=== PATIENT | male | born 1960 | race Caucasian/White ===

== ENCOUNTER 2019-04-22 18:57 | Emergency (ER) | payer OTHER, SELFPAY ==
[2019-04-22 18:58] VITALS: BP 171/90; PULSE 69; RESP 15; TEMP 36.8; O2SAT 97; BMI 34.9
--- NOTE | 2019-04-22 19:24 | EKG12_ITS ---
Test Reason : POSS STROKE Blood Pressure : / mmHG Vent. Rate : 067 BPM Atrial Rate : 067 BPM P-R Int : 146 ms QRS Dur : 124 ms QT Int : 466 ms P-R-T Axes : 041 048 027 degrees QTc Int : 492 ms Normal sinus rhythm Right bundle branch block Abnormal ECG Confirmed by GRACE CACERES, FARHANA ([id number]), non linear editor BROOKE GRIDER ([id number]) on 05/03/2019 9:18:24 A M Referred By: GIULIA Confirmed By:TATE EDWARDS MD
--- NOTE | 2019-04-22 19:24 | CT_ITS ---
STUDY: CT BRAIN WITHOUT CONTRAST REASON FOR EXAM: Male, 59 years old. Diplopia, difficulty ambulating RADIATION DOSAGE (If Supplied By Facility): CTDIvol = ( 44.99 ) mGy, DLP = ( 829.85 ) mGycm TECHNIQUE: Transaxial CT imaging of the brain was performed without administration of intravenous contrast material. Individualized dose optimization techniques were used for this CT. COMPARISON: No relevant priors. FINDINGS: There are minor ill-defined scattered white matter hypodensities, likely involutional/ischemic. There is no acute intracranial hemorrhage, territorial infarction, hydrocephalus mass effect or midline shift. The skull is intact. CT/Brain/Head without Contrast IMPRESSION: 1. No acute abnormality. 2. Mild white matter involutional/atherosclerotic changes. 3. In the presence of acute neurologic deficit MRI with diffusion is recommended to detect acute ischemia not demonstrable on early CT head. Electronically Signed: Tyron Turner, at 20:28 EDT Tel , Service support ,
--- NOTE | 2019-04-22 19:40 | ED.VIS.STROK ---
History of Present Illness Chief Complaint: Eye Problem Informant: Patient Onset: Today, Hours Context: Sudden Onset Timing: Intermittent Quality and Location: - - Double vision, nausea and problems with balance Onset: 1700 and resolved at approximately 1730 Current Severity: Gone Maximum Severity: Moderate Worsened by: Nothing Relieved by: Nothing Associated Symptoms: Headache, Nausea. Negative for: Vomiting, Chest Pain Narrative: Patient is a 59-year-old male with no sniffing past medical history presents because of double vision, problems with balance and nausea with headache that started at 1700 and resolved by 1730. He is on no anticoagulant or antiplatelet medication but he has no history of hypertension or diabetes. He denies prior symptoms. He denies symptoms presently. He denied cardiac, respiratory or any other GI symptoms other than nausea. He denies urologic symptoms. Prior similar symptoms: No Recent Illness/Hospitalization: No - Past Medical History (1) No significant past medical history Status: Acute Past Medical History - Allergies and Home Meds Allergies/Adverse Reactions: Allergies Penicillins [PCN] Allergy (Verified 06/08/17 09:29) Unknown - WAS A BABY Primary Care Physician: Jaime Lanza DO [Primary Care Provider] - Prior records reviewed: Yes Past Medical History: None Surgical History: no surgical history Lives: Spouse/ Significant Other Smoking Status: Current every day smoker Alcohol: Rare Drugs: None - Family History Paternal Family History: Reports: Cancer Maternal Family History: Reports: No pertinent history Review of Systems General: Denies: Chills, Fever, Malaise, Sweats Eyes: Reports: Diplopia. Denies: Visual changes - bilaterally, Blurred Vision - bilaterally ENT: Denies: Bilateral ear pain, Rhinorrhea, Sore throat Cardiovascular: Denies: Chest pain, Palpitations Respiratory: Denies: Dyspnea, Cough, Dyspnea on exertion Gastrointestinal: Reports: Nausea. Denies: Abdominal pain, Vomiting, Diarrhea, Melena, Hematochezia Genitourinary: Denies: Dysuria, Hematuria, Frequency Musculoskeletal: Denies: Myalgias, Arthralgias, Neck pain, Back pain, Swelling, Extremity Pain, -, - Skin: Denies: Rash, Wounds Neurological: Reports: Headache. Denies: Weakness, Parasthesia, Numbness, -, - Hematologic: Denies: Easy bruising, Easy bleeding Allergy: Denies: Swelling of the mouth, Swelling of the tongue STROKE Vital Signs/Narrative: Vital Signs Temp Pulse Resp BP Pulse Ox 04/22/19 18:58 98.2 F 69 15 171/90 H 97 Inital Vital Signs reviewed: Yes - NIHSS Initial 1a Level of Consciousness: 0 1b LOC Questions (Score 2 if aphasic/stupor): 0 1c LOC Commands (Only score 1st attempt): 0 2 Best Gaze (If aphasic, use reflexive mvmts.): 0 3 Visual: 0 4 Facial Palsy: 0 5 Motor Arm Right (UN = amputation/fusion): 0 5 Motor Arm Left: 0 6 Motor Leg Right: 0 6 Motor Leg Left: 0 7 Limb ataxia (Only + if out of proportion): 0 8 Sensory (Aphasia/stupor=0 or 1, coma=2): 0 9 Best Language: 0 10 Dysarthria (mute, coma=2, intubated=UN): 0 11 Extinction and Inattention (only scored if +): 0 Total Score: 0 General: Well nourished, Well developed Head: Normocephalic, Atraumatic Eyes: Perrl, EOMI ENT: Moist mucous membranes, No rhinorrhea Neck: Supple, Nontender Cardiovascular: Regular rate, Regular rhythm, No murmurs Respiratory: No distress, CTA bilaterally, Chest nontender Abdomen: Soft, Nontender, Nondistended, Normal bowel sounds Back: Nontender, Normal Inspection Extremities: Nontender, No edema Skin: Normal color, No rash Neurological: Alert, Oriented x3, Cranial nerves II-XII grossly intact, Normal Strength, Normal Sensation, Normal DTR - No clonus. He withdraws when assessing for Babinski sign., - - Finger-nose to finger was normal on the left. He was slightly off on the right. Romberg test with eyes open and closed revealed slight missing on the right only with eyes open.. Negative for: Normal Gait - His gait he was able to walk on heels and toes. Tandem gait was abnormal and he had trouble staying upright. Psychological: Normal affect, Normal Mood Diagnostic/Tx/Re-eval Impressions Brain CT 04/22/19 19:24 IMPRESSION: 1. No acute abnormality. 2. Mild white matter involutional/atherosclerotic changes. 3. In the presence of acute neurologic deficit MRI with diffusion is recommended to detect acute ischemia not demonstrable on early CT head. Electronically Signed: Tyron Turner, at 20:28 EDT Tel , Service support , 04/22/19 19:24 Brain/Head without Contrast [CT] Stat Laboratory Results 04/22/19 04/22/19 04/22/19 19:52 19:52 19:52 WBC 6.7 RBC 4.96 Hgb 14.7 Hct 43.6 MCV 87.9 MCH 29.6 MCHC 33.7 RDW Std Deviation 42.5 RDW Coeff of Carlos 13.2 Plt Count 330 MPV 9.2 Immature Gran % (Auto) 0.700 Neut % (Auto) 51.4 Lymph % (Auto) 34.0 [place] % (Auto) 10.2 H Eos % (Auto) 2.7 Baso % (Auto) 1.0 Absolute Neuts (auto) 3.5 Absolute Lymphs (auto) 2.29 Nucleated RBC % 0 PT 12.8 INR 1.0 APTT 27.8 Sodium 134 L Potassium 4.3 Chloride 100 Carbon Dioxide 29.0 Anion Gap 5 BUN 6 L Creatinine 1.01 Estim Creat Clear Calc 77.78 Est GFR (MDRD) Af Amer 97 Est GFR (MDRD) Non-Af 80 BUN/Creatinine Ratio 5.9 L Glucose 91 Calcium 9.1 Troponin I < 0.015 CT of the head reveals no acute intracranial bleed. Blood work is unremarkable. The hospitalist has been paged for continued observation and additional testing. - EKG Initial EKG Interpretation: Sinus Rhythm - Sinus rhythm with a ventricular rate of 67. WI interval is 146 ms. QRS durations 124 ms and consistent with right bundle branch block. QT 466 ms. - Medical Decision Making Stroke Team Activated: No Reviewed Inclusion/Exclusion criteria: No IV Alteplase (t-PA) Administered: No No contraindications for IV Alteplase (t-PA) administration.: No Alteplase (t-PA) risks, benefits, alternative discussed: No Not given: Patient refusal: No - NIH 0 Patient was informed with trouble with vision i.e. diplopia nausea headache and problems with ambulating and slight subtle abnormality noted with finger-nose to finger on the right concern this may represent a problem with the circulation in the back part of his brain requiring stroke work-up. Patient initially reluctant to stay. He was informed that he may leave AGAINST MEDICAL ADVICE but he would need to understand the risks he is taking. His informed him that he would be staying. Patient agrees to stay after I answered his questions why he needed further testing. ED Disposition - Plan for ED Patient: Disposition: Acute Care Hospital [facility] Diagnosis: Diplopia, DIFFICULTY AMBULATING Referrals: Jaime Lanza DO [Primary Care Provider] -
[2019-04-22 19:52] VITALS: BP 171/85; PULSE 68; RESP 17; O2SAT 97
[2019-04-22 20:30] VITALS: BP 176/96; PULSE 69; RESP 17; O2SAT 96
[2019-04-22 20:32] LABS: Absolute Lymphocyte Count 2.29 X10^3/uL (0.83-4.51); Absolute Neutrophil Count 3.5 X10^3/uL (2.0-7.7); Basophil# 0.07 X10^3/uL; Eosinophil# 0.18 X10^3/uL; Eosinophils% 2.7 % (0-5); Hematocrit 43.6 % (40-54); Hemoglobin 14.7 g/dL (13.0-16.5); Lymphocyte # 2.29 X10^3/ul (4.0); Mean Corp Hgb Conc 33.7 g/dL (32-36); Mean Corpuscular Hgb 29.6 pg (27.0-32.0); Mean Corpuscular Volume 87.9 fL (80-94); Mean Platelet Vol. 9.2 fl (6.2-12.0); Monocyte# 0.69 X10^3/uL; Monocyte% 10.2 % (0-10); NRBC Flagged by Analyzer 0 % (0-5); Neutrophil # 3.46 X10^3/uL (2.7-7.7); Neutrophil % 51.4 % (47-70); Platelet Count 330 K/mm3 (150-450); RBC Distribution Width CV 13.2 % (11.6-14.6); RBC Distribution Width SD 42.5 fl (35.1-43.9); Red Blood Count 4.96 M/mm3 (4.6-6.2); White Blood Count 6.7 K/mm3 (4.4-11.0)
[2019-04-22 20:34] LABS: Partial Thromboplast Time 27.8 Seconds (24.1-36.2); Prothrombin Time (Protime)PT. 12.8 SECONDS (11.7-14.9)
[2019-04-22 20:43] LABS: Anion Gap 5 (5-15); BUN 6 mg/dL (7-18); BUN/Creat Ratio 5.9 RATIO (10-20); Calcium,Total 9.1 mg/dL (8.5-10.1); Chloride 100 mmol/L (98-107); Creatinine, Serum 1.01 mg/dL (0.70-1.30); EST Glomerular Filtration Rate 80 mL/min (>60); Est Glom Filt Rate - Afr Amer 97 mL/min (>60); Estimated Creatinine Clearance 77.78 ml/min; Glucose 91 mg/dL (74-106); Potassium 4.3 mmol/L (3.5-5.1); Sodium Level 134 mmol/L (136-145)
--- NOTE | 2019-04-22 21:11 | PCM.HP.STD ---
History of Present Illness The patient is a 59 year old M [] Past Medical History Allergies Penicillins [PCN] Allergy (Verified 06/08/17 09:29) Unknown - WAS A BABY Home Medications: Ambulatory Orders Medication Instructions Recorded Omeprazole [Prilosec] 10 mg PO DAILY 06/08/17 Acetaminophen [Tylenol] 1,000 mg PO Q8 #90 tab 06/24/17 Surgical History: no surgical history Lives: Spouse/ Significant Other Smoking Status: Current every day smoker Alcohol: Rare Drugs: None - *Family History Paternal History Items: Cancer Maternal History Items: No pertinent history Patient Problems: Active and Suspected Problems No significant past medical history (Acute) Diplopia (Acute) - Physical Exam Vital Signs Temp Pulse Resp BP Pulse Ox 98.2 F 69 17 176/96 H 96 04/22/19 18:58 04/22/19 20:30 04/22/19 20:30 04/22/19 20:30 04/22/19 20:30 Oxygen Flow Rate (L/min) 2 Oxygen Delivery Method Room Air Weight: 107.501 kg Body Mass Index (BMI) 34.9 Finger Stick Blood Glucose 134 Laboratory Tests Past 24 Hrs 04/22/19 04/22/19 04/22/19 19:52 19:52 19:52 WBC 6.7 RBC 4.96 Hgb 14.7 Hct 43.6 MCV 87.9 MCH 29.6 MCHC 33.7 RDW Std Deviation 42.5 RDW Coeff of Carlos 13.2 Plt Count 330 MPV 9.2 Immature Gran % (Auto) 0.700 Neut % (Auto) 51.4 Lymph % (Auto) 34.0 [place] % (Auto) 10.2 H Eos % (Auto) 2.7 Baso % (Auto) 1.0 Absolute Neuts (auto) 3.5 Absolute Lymphs (auto) 2.29 Nucleated RBC % 0 PT 12.8 INR 1.0 APTT 27.8 Sodium 134 L Potassium 4.3 Chloride 100 Carbon Dioxide 29.0 Anion Gap 5 BUN 6 L Creatinine 1.01 Estim Creat Clear Calc 77.78 Est GFR (MDRD) Af Amer 97 Est GFR (MDRD) Non-Af 80 BUN/Creatinine Ratio 5.9 L Glucose 91 Calcium 9.1 Troponin I < 0.015 Assessment/Plan All Active Problems No significant past medical history (Acute) Diplopia (Acute)
--- NOTE | 2019-04-22 23:03 | PCM.CONS.GEN ---
Problem List (1) Alcohol abuse Status: Chronic (2) Tobacco abuse Status: Chronic (3) Stroke-like symptoms Status: Acute Reason for Consult Date of Consultation: 04/23/19 Reason for Consultation: stroke-like symptoms History of Present Illness: The patient is a 59 year old M with a significant history of alcoholism and tobacco abuse who presented to emergency department with 1 day history of blurry vision. Patient and his reports at least 5 times of episodic blurry vision. The last episode occurred while sitting at the triage of our emergency department. Also her reports that patient was found staring in space and upon further inquiry patient reported to her that he was having blurry vision. Associated with his symptoms is problem with balance, nausea and headache. Emergency department doctor reported that patient had tandem gait abnormality and some dysmetria on finger to noise test. Past Medical History Past Medical History (Chronic Problems): Chronic Problems Alcohol abuse (Chronic) Tobacco abuse (Chronic) Allergies Penicillins [PCN] Allergy (Verified 06/08/17 09:29) Unknown - WAS A BABY Home Medications: Ambulatory Orders Medication Instructions Recorded Omeprazole [Prilosec] 10 mg PO DAILY 06/08/17 Acetaminophen [Tylenol] 1,000 mg PO Q8 #90 tab 06/24/17 Surgical History: total hip arthroplasty Lives: Spouse/ Significant Other Smoking Status: Current every day smoker Tobacco Use: Cigarettes Alcohol: Heavy Drugs: None - *Family History Paternal History Items: Cancer Maternal History Items: - - Patient denies knowledge of any maternal medical history. Review of Systems Constitutional: Denies: Chills, Fever, Weight Change HEENT: Reports: Head Aches. Denies: Sinus Congestion, Sinus Drainage Cardiovascular: Denies: Chest Pain, Palpitations Respiratory: Denies: Cough, Shortness of breath at rest, Sputum production Gastrointestinal: Reports: Nausea. Denies: Abdominal Pain, Vomiting Genitourinary: Denies: Dysuria Musculoskeletal: Denies: Joint Pain, Joint Tenderness Skin: Denies: Rash, Wounds Neurological: Reports: Balance problems, Blurred vision. Denies: Focal weakness, Numbness, Tingling Psychiatric: Denies: Anxiety, Depression, Homicidal Ideations, Suicidal Ideations Hematologic/ Lymphatic: Denies: Easy Bruising, Easy Bleeding - Physical Exam General: Alert, Oriented x3, Cooperative HEENT: Atraumatic, PERRLA, EOMI, Normocephalic Neck: Supple, No JVD, Negative Carotid Bruits Lungs: Clear to auscultation, Normal air movement Cardiovascular: Regular rate, No murmurs Abdomen: Bowel Sounds Present, Soft, Non Tender Extremities: No edema, Capillary Refill Less than 3 Seconds Skin: No rashes, No breakdown Musculoskeletal: No Tenderness to Palpation of Joints or Extremities Neurological: Motor Exam 5/5 strength throughout, - - Abnormal visual field test. Tandem gait abnormal Psych/Mental Status: Normal Affect, Appropriate Vital Signs Temp Pulse Resp BP Pulse Ox 98.2 F 69 17 176/96 H 96 04/22/19 18:58 04/22/19 20:30 04/22/19 20:30 04/22/19 20:30 04/22/19 20:30 Oxygen Flow Rate (L/min) 2 Oxygen Delivery Method Room Air Weight: 107.501 kg Body Mass Index (BMI) 34.9 Finger Stick Blood Glucose 134 Laboratory Tests Past 24 Hrs 04/22/19 04/22/19 04/22/19 19:52 19:52 19:52 WBC 6.7 RBC 4.96 Hgb 14.7 Hct 43.6 MCV 87.9 MCH 29.6 MCHC 33.7 RDW Std Deviation 42.5 RDW Coeff of Carlos 13.2 Plt Count 330 MPV 9.2 Immature Gran % (Auto) 0.700 Neut % (Auto) 51.4 Lymph % (Auto) 34.0 [place] % (Auto) 10.2 H Eos % (Auto) 2.7 Baso % (Auto) 1.0 Absolute Neuts (auto) 3.5 Absolute Lymphs (auto) 2.29 Nucleated RBC % 0 PT 12.8 INR 1.0 APTT 27.8 Sodium 134 L Potassium 4.3 Chloride 100 Carbon Dioxide 29.0 Anion Gap 5 BUN 6 L Creatinine 1.01 Estim Creat Clear Calc 77.78 Est GFR (MDRD) Af Amer 97 Est GFR (MDRD) Non-Af 80 BUN/Creatinine Ratio 5.9 L Glucose 91 Calcium 9.1 Troponin I < 0.015 Assessment/Plan All Active Problems Stroke-like symptoms (Acute) The patient is a 59 year old M with a significant history of alcoholism and tobacco abuse who presented to emergency department with multiple episodes of blurry vision; imbalance, nausea; headache ; and abnormal tandem gait and hemianopia consistent with probable posterior circulation stroke. Probable posterior circulation stroke CT of the head did not show acute abnormality Patient will need an MRI and neurologist evaluation and recommendation: I discussed with emergency department, patient and family that for optimum care patient should be transferred to a Hospital where he can have access to these. Alcoholism Patient reported he drinks about 12 beers per day Counseled Tobacco abuse: Patient smokes cigarettes Counselled. Code Visit Office Visits / Consults: [id number] OP Consult L2
== END 2019-04-22 23:31 | disposition home or self-care (01) ==
PROVIDERS: Emergency Provider Emergency Medicine; Family Provider Preventive Medicine Occupational Medicine; PCP Preventive Medicine Occupational Medicine
DX: H53.2 Diplopia (principal); R26.2 Difficulty in walking, not elsewhere classified; F17.210 Nicotine dependence, cigarettes, uncomplicated; F10.20 Alcohol dependence, uncomplicated; Y90.9 Presence of alcohol in blood, level not specified; Z53.29 Procedure and treatment not carried out because of patient's decision for other reasons
CPT/HCPCS: 70450; 80048; 84484; 85025; 85610; 85730; 93005; 99284; A4216

== ENCOUNTER → 2022-01-31 | Outpatient (CLI) | payer OTHER, SELFPAY | END | disposition home or self-care (01) | LOC: LAB 09:24 | PROVIDERS: PCP Preventive Medicine Occupational Medicine; Referring Provider Preventive Medicine Occupational Medicine; Visit Provider Preventive Medicine Occupational Medicine | DX: U07.1 COVID-19 (principal) | CPT/HCPCS: 36415; 86769 ==

== ENCOUNTER → 2022-02-07 | Outpatient (CLI) | payer OTHER, SELFPAY ==
[2022-02-07 11:32] LABS: AST(SGOT) 17 U/L (15-37); Alanine Aminotransfer ALT/SGPT 30 U/L (16-61); Albumin, Serum 3.5 g/dL (3.2-5.0); Alkaline Phosphatase 79 U/L (45-117); Anion Gap 5 (5-15); BUN 6 mg/dL (7-18); BUN/Creat Ratio 6.2 RATIO (10-20); Calcium,Total 8.7 mg/dL (8.5-10.1); Chloride 102 mmol/L (98-107); Cholesterol 86 mg/dL (200); Creatinine, Serum 0.96 mg/dL (0.70-1.30); EST Glomerular Filtration Rate 84 mL/min (>60); Est Glom Filt Rate - Afr Amer 102 mL/min (>60); Globulin 3.5 g/dL (2.2-4.2); Glucose 98 mg/dL (74-106); High Density Lipoprotein 41 mg/dL; PSA,Total - Annual Screen 0.99 ng/mL (0.00-4.00); Potassium 4.3 mmol/L (3.5-5.1); Sodium Level 134 mmol/L (136-145); Triglycerides 51 mg/dL; Very Low Density Lipoprotein 10 mg/dL (5-40)
== END | disposition home or self-care (01) ==
LOC: LAB 10:04
PROVIDERS: PCP Preventive Medicine Occupational Medicine; Visit Provider Preventive Medicine Occupational Medicine
DX: I10 Essential (primary) hypertension (principal); E78.5 Hyperlipidemia, unspecified; Z12.5 Encounter for screening for malignant neoplasm of prostate
CPT/HCPCS: 36415; 80053; 80061; 84153; G0103

== ENCOUNTER 2022-03-22 11:12 | Emergency (ER) | payer OTHER, SELFPAY ==
[2022-03-22 11:13] VITALS: BP 160/77; PULSE 76; RESP 14; TEMP 36.3; O2SAT 99; BMI 36.0
--- NOTE | 2022-03-22 11:23 | RAD_ITS ---
STUDY: X-RAY - RIGHT WRIST REASON FOR EXAM: Male, 61 years old. Trauma TECHNIQUE: 3 view(s) of the wrist were obtained. COMPARISON: None. FINDINGS: Normal visualized distal radius and ulna. Normal radiocarpal articulation. Normal distal radioulnar articulation. Normal carpal bones. Widening of the scaphoid trapezium joint. Normal carpometacarpal articulation of the thumb. Normal second through fifth carpometacarpal articulations. Deformity of the base of the fifth metacarpal could be due to old injury. Small calcification on the dorsal aspect of the wrist concerning for fracture of the triquetrum. The soft tissue structures are unremarkable. RAD/Wrist min 3 Views IMPRESSION: Small calcification of the dorsal aspect of the wrist concerning for fracture of the triquetrum. Widening of the scaphoid trapezium joint and deformity of the base of the fifth metacarpal could be due to previous injury. Electronically Signed: Mayco Gama MD at 12:25 EDT ,
--- NOTE | 2022-03-22 11:23 | RAD_ITS ---
STUDY: X-RAY - RIGHT HAND REASON FOR EXAM: Male, 61 years old. Injury TECHNIQUE: 3 view(s) of the hand. COMPARISON: None. FINDINGS: Normal radiocarpal articulation. Normal distal radioulnar joint. Normal visualized carpal bones. Widening of the scaphoid trapezium articulation. Normal carpometacarpal articulation of the thumb. Normal second through fifth carpometacarpal joints. Deformity of the base of the fifth metacarpal could be due to old injury. Normal metacarpophalangeal joint of the thumb. Normal interphalangeal joint of the thumb. Normal proximal and distal phalanges of the thumb. Normal metacarpophalangeal joints of the second through fifth fingers. Normal proximal and distal interphalangeal joints of the second through fifth fingers. Normal phalanges of the second through fifth fingers. The soft tissue structures are unremarkable. RAD/Hand Min 3 Views IMPRESSION: 1. Widening of the scaphoid trapezium joint and deformity of the base of the fifth metacarpal could be due to old injury. 2. Otherwise no demonstrated acute fracture. Electronically Signed: Mayco Gama MD at 12:22 EDT ,
--- NOTE | 2022-03-22 11:23 | EX.ED.UPPERE ---
HPI History of Present Illness Chief Complaint: Upper Extremity Injury Informant: patient Narrative Narrative: 61-year-old male states that yesterday he sustained a fall in which his right hand was caught underneath of him. He notes that he had some swelling over the third MCP joint. He had a previous abrasion over the wrist. He iced it and took some Aleve and it was doing okay until around bedtime when it began to hurt more. He took some additional Aleve states has been unable to sleep due to pain. He notes that now his whole hand is swollen. He notes some pain at the wrist joint as well. [facility] Medical History (Updated 03/22/22 @ 12:[address] Bowen Lemus DO) GERD (gastroesophageal reflux disease) Hyperlipemia Hypertension Home Medications atorvastatin 80 mg tablet 80 mg PO DAILY 03/22/22 [History Last Taken 03/22/22] clopidogrel 75 mg tablet 75 mg PO DAILY 03/22/22 [History Last Taken 03/22/22] hydrocodone-acetaminophen 5-325mg 5mg-325mg 1 tab PO Q6H PRN PRN Pain 3 days #12 TABLETS 03/22/22 [Rx Last Taken Unknown] lisinopril 2.5 mg tablet 2.5 mg PO DAILY 03/22/22 [History Last Taken 03/22/22] Allergy/AdvReac Type Severity Reaction Status Date / Time Penicillins [PCN] Allergy Unknown - Verified 03/22/22 11:13 WAS A BABY Social History (Updated 03/22/22 @ 11:[address] Bowen Lemus DO) current gender identity: male Smoking Status: Current every day smoker tobacco type: cigarettes ROS ROS ED Constitutional Constitutional ED: Denies chills, fever(s) or weight loss Eyes Eyes: Denies change in vision or diplopia ENT ENT ED: Denies ear pain, rhinorrhea or sore throat Cardiovascular Cardiovascular: Denies chest pain, orthopnea, palpitations or racing heartbeat Respiratory/Chest Respiratory/Chest: Denies cough, dyspnea or orthopnea Gastrointestinal Gastrointestinal: Denies abdominal pain, diarrhea, nausea or vomiting Genitourinary Genitourinary ED: Denies dysuria, hematuria or urinary frequency Musculoskeletal Musculoskeletal: Reports other Details: See history of present illness ; Denies arthralgias or myalgias Integumentary Denies abscess or rash Neurologic Neurologic: Denies headache(s) or weakness Psychiatric Psychiatric: Denies anxiety, depression, suicidal ideation or suicidal thoughts Endocrine Endocrinology: Denies polydipsia, polyphagia or polyuria Allergic/Immunologic Allergic/Immunologic ED: Denies mouth swelling, tongue swelling or urticaria EXAM Physical Exam Const Vital Signs: 03/22/22 11:13 Temperature 97.4 F L Temperature Source Temporal Pulse Rate 76 Respiratory Rate 14 Blood Pressure 160/77 H Blood Pressure Mean 104 Pulse Ox 99 Oxygen Delivery Method Room Air Positive well nourished, well developed and obese General Appearance ED: well developed Nutritional Appearance: obese HEENT Reports normocephalic, head/scalp atraumatic and moist mucous membranes Eyes PERRL and EOMs intact bilaterally Neck full ROM, no lymphadenopathy, supple and no JVD Resp normal respiratory effort and clear to auscultation bilaterally Cardio regular rate, regular rhythm and no murmurs GI normal to inspection, nondistended, normoactive bowel sounds and non-tender Palpation: soft Back/Spine no CVA tenderness and normal ROM Extremity Extremity Narrative: The dorsum of the right hand and is swollen. There is no increased warmth or significant erythema. There is a healing superficial abrasion. Limited range of motion due to pain. The wrist is mildly tender to palpation with decreased ROM as well. Neurovascularly intact with excellent capillary refill Neuro oriented x3 and CN's II-XII intact bilaterally Sensorium / Orientation: alert Motor Exam: strength 5/5 throughout Psych mental status grossly normal Mood & Affect: Negative for depressed or tearful Skin no rashes or lesions noted and no wounds MDM MDM MDM Narrative Medical decision making narrative: My impression of the plain films of the right hand and hand is widening of the scaphoid and trapezium joint as well as a small calcification on the dorsal aspect of the wrist concerning for fracture of the triquetrum. Patient was placed in a anterior splint so that he can ice the dorsum of the hand which she states is greatly helping him. I will write for hydrocodone. Recommend follow-up with orthopedics. Discharge Plan Triage Chief Complaint: Upper Extremity Injury ED Provider: Bowen Lemus Dx/Rx/DC Orders Clinical Impression: Hand pain, right, Swelling of right hand, Fall, Fracture of triquetral bone of right wrist Instructions: ED Crush Injury, Hand Prescriptions: New hydrocodone-acetaminophen [hydrocodone-acetaminophen] 5-325 mg tablet 1 tab PO Q6H PRN PRN (Reason: Pain) 3 Days Qty: 12 0RF No Action atorvastatin 80 mg tablet 80 mg PO DAILY clopidogrel 75 mg tablet 75 mg PO DAILY lisinopril 2.5 mg tablet 2.5 mg PO DAILY Primary Care Provider: Jaime Lanza Referrals: Fausto Khan DO [Med Staff - Active Staff] - As soon as possible Jaime Lanza DO [Primary Care Provider] - 10-14 Days if not better Disposition Disposition: Home, Self Care
[2022-03-22 12:55] VITALS: PULSE 84; RESP 17; O2SAT 99
== END 2022-03-22 12:56 | disposition home or self-care (01) ==
PROVIDERS: Emergency Provider Emergency Medicine; PCP Preventive Medicine Occupational Medicine; Visit Provider Emergency Medicine
DX: S62.101A Fracture of unspecified carpal bone, right wrist, initial encounter for closed fracture (principal); F17.210 Nicotine dependence, cigarettes, uncomplicated; I10 Essential (primary) hypertension; E78.5 Hyperlipidemia, unspecified; K21.9 Gastro-esophageal reflux disease without esophagitis; E66.9 Obesity, unspecified; Z79.899 Other long term (current) drug therapy; W19.XXXA Unspecified fall, initial encounter
CPT/HCPCS: 29125; 73110; 73130; 99282

== ENCOUNTER → 2023-02-20 | Outpatient (CLI) | payer OTHER, SELFPAY ==
[2023-02-20 11:10] LABS: Hematocrit 39.6 % (40-54); Hemoglobin 13.2 g/dL (13.0-16.5); Mean Corp Hgb Conc 33.3 g/dL (32-36); Mean Corpuscular Hgb 29.6 pg (27.0-32.0); Mean Corpuscular Volume 88.8 fL (80-94); Mean Platelet Vol. 9.4 fl (6.2-12.0); Platelet Count 250 K/mm3 (150-450); RBC Distribution Width CV 13.8 % (11.6-14.6); RBC Distribution Width SD 44.9 fl (35.1-43.9); Red Blood Count 4.46 M/mm3 (4.6-6.2); White Blood Count 7.7 K/mm3 (4.4-11.0)
[2023-02-20 11:30] LABS: AST(SGOT) 17 U/L (15-37); Alanine Aminotransfer ALT/SGPT 26 U/L (16-61); Albumin, Serum 3.7 g/dL (3.2-5.0); Alkaline Phosphatase 71 U/L (45-117); Anion Gap 5 (5-15); BUN 12 mg/dL (7-18); BUN/Creat Ratio 12.3 RATIO (10-20); Calcium,Total 8.7 mg/dL (8.5-10.1); Chloride 101 mmol/L (98-107); Cholesterol 89 mg/dL (200); Creatinine, Serum 0.98 mg/dL (0.70-1.30); EST Glomerular Filtration Rate 82 mL/min (>60); Est Glom Filt Rate - Afr Amer 99 mL/min (>60); Globulin 3.6 g/dL (2.2-4.2); Glucose 102 mg/dL (74-106); High Density Lipoprotein 48 mg/dL; PSA,Total - Annual Screen 0.77 ng/mL (0.00-4.00); Potassium 4.7 mmol/L (3.5-5.1); Protein, Total 7.3 g/dL (6.4-8.2); Sodium Level 135 mmol/L (136-145); Triglycerides 54 mg/dL; Very Low Density Lipoprotein 11 mg/dL (5-40)
== END | disposition home or self-care (01) ==
LOC: LAB 09:53
PROVIDERS: PCP Preventive Medicine Occupational Medicine; Referring Provider Preventive Medicine Occupational Medicine; Visit Provider Preventive Medicine Occupational Medicine
DX: Z00.00 Encounter for general adult medical examination without abnormal findings (principal); Z12.5 Encounter for screening for malignant neoplasm of prostate; I10 Essential (primary) hypertension
CPT/HCPCS: 36415; 80053; 80061; 84153; 85027; G0103

== ENCOUNTER 2023-06-11 08:00 | Outpatient (RCR) | payer OTHER, SELFPAY ==
--- NOTE | 2023-05-14 09:41 | HP.PTEVAL ---
Patient's Visit Information Visit Information Visit Information: ELIS BILLS is a 63 year old M referred to Physical Therapy by Dr. Juarez Dewitt, DO with a diagnosis of LUMBAR SPINAL STENOSIS AND SPONDYLOSIS. Date of Evaluation: 05/14/23 Physical Therapist: Flora Valerio PT, Cert MDT Visit Plan Frequency: 2-3x /Week Duration: 4-6 Weeks Plan: Neutral Spine Core Stability Exercises and Kriss LE Hip Flexor, Hamstring and Calf Stretching to help reduce stress to the Lumbar Spine with all Daily Activities. Instruction in Proper Posture Control, Body Mechanics and Appropriate Activity Modifications. HEP Instruction. Subjective Subjective: Work/Leisure: [employer] - [employer] - HOU[employer]. Disability: NO Present symptoms: LOW BACK PAIN. PATIENT DENIES LE SX'S. Present since: SUMMER 2022 Pain Scale: WORST 7/10, LEAST 0/10 Currently: 0/10 Is it getting better, worse or staying the same: STAYING THE SAME Commenced as a result of: NO APPARENT REASON Symptoms at onset: LOW BACK PAIN Worse: WORK, PROLONGED WALKING, Better: SITTING. USUALLY ONLY TAKES A FEW MINUTES THEN CAN GO AGAIN. Disturbed sleep: NO Previous history/Previous treatment: LOW BACK PAIN OVER THE YEARS. ONE TIME IT FELT LIKE SOMETHING SNAPPED IN MY BACK BUT GOT BETTER IN A WEEK OR SO WITHOUT GOING TO THE DOCTOR. USE TO GET ROOFERS BACK PAIN AND WOULD GO AWAY WITH TIME. I HAVE QUIT WEARING TOOL BAGS A COUPLE YEARS AGO. I WORE A TOOL BAG FOR 40 YEARS. CHIROPRACTIC IN BUT OTHERWISE JUST SELF TREATED. NO BACK SURGERY AND NO PRIOR BACK INJECTIONS. Treatment this episode: SAW PCP DR. STEELE - PRESCRIBED 9 DAY STEROIDS - HELPED A LOT. CURRENTLY ON MALOXACAM. CONSULT WITH [facility] - DR. DEWITT. MRI RECOMMENDED BUT PATIENT REFUSED. ALSO STATES HE WILL NOT HAVE SURGERY IF RECOMMENDED. REFERRED TO PAIN MGMT - DR. FINNEGAN AND ANASTASIA PENDING MAY 25 2023. Coughing/sneezing/straining: SOMETIMES Gait: PAIN WITH WALKING TO A DEGREE WITH EVERY STEP BUT WORSE WITH WALKING ON UNEVEN SURFACES THAT ARE TYPICAL AT WORK. HAS TO SIT DOWN FREQUENTLY USUALLY DO TO LEGS MORE THAN BACK - I JUST NEED TO TAKE A BREAK. Bowel or Bladder Dysfunction: NO Accidents: NO Unexplained weight loss: NO Imaging: LUMBAR X-RAYS - SPINAL STENOSIS PER PATIENT REPORT. PMH/Recent major surgery: HTN, HIGH CHOLESTEROL, KRISS THR Objective Objective: Sitting/Standing Posture: POOR. ANTERIOR PELVIC TILT. R ILIAC CREST HIGHER THAN LEFT. R LATERAL SHIFT AND SCOLIOTIC. Active Correction of posture: NE Other Observations: INDEP GAIT WITHOUT AD OR LOB. INDEP TRANSFER SIT TO STAND WITHOUT UE ASSIST. Sensory deficit: KRISS LE LIGHT TOUCH SENSATION GROSSLY INTACT AND SYMMETRICAL ROM deficit: VERY TIGHT KRISS HIP FLEXORS, HS'S AND GASTROC SOLEUS COMPLEX'S. TIGHT KRISS HIP ROTATORS ESPECIALLY R HIP ER WHICH PATIENT REPORTS HAS BEEN THE CASE SINCE HIGH SCHOOL. Motor deficit: KRISS HIPS 4-/5, KNEES 5/5, ANKLES 5/5. Dural Signs: NEGATIVE KRISS LE'S. Lumbar mvmt loss: flex - MOD ext - MOD R SG - ADRIÁN L SG - ADRIÁN PATIENT C/O INCREASED LOW BACK PAIN WITH KRISS SG TESTING BUT NW. Core strength: POOR Palpation: NO ACUTE LUMBAR TENDERNESS. INCREASED MUSCLE TONE KRISS LUMBAR PARASPINALS. TREATMENT: NEUROMUSCULAR REEDUCATION - RETRAINING OF MVMT AND POSTURE FOR SITTING AND STANDING ACTIVITIES. PATIENT COMMUNICATED A GOOD UNDERSTANDING OF ALL INSTRUCTIONS GIVEN AND REPORTS AVOIDING OVER HEAD REACHING WILL BE HARD WITH WORK. Balance/Special Test Scores Oswestry Low Back Score: 11 Goals Goal 1:: Patient will be able to stand and walk for 30 minutes without increased symptoms/needing to sit down for increased work, ADL and Recreational tolerance. Goal Time Frame: 4-6 Weeks Goal 2:: Patient will have increased BLE and core strength increased by 1/2 grade of all effected musculature. Goal Time Frame: 4-6 Weeks Goal 3:: Patient will be Indep with a HEP for continued improvement once formal Physical Therapy concludes. Goal Time Frame: 4-6 Weeks Anticipated Interventions Patient/Client Instruction: Educate patient on: Condition, Plan of Care and Risk Factors For the Purpose of:: To improve self management Therapeutic Exercise to Include: Strength training, Body mechanics, Postural training, Flexibilty training, Neuromotor development and Dynamic Lumbar Stabilization For the Purpose of:: To decrease pain, To increase ROM, To improve muscle performance and motor function, To increase tolerance to activity/condition/position, To improve ability of physical actions for home/community/work/leisure and To improve gait and locomotor functions Text: Thank you for the opportunity to evaluate your patient. For Medicare and Medicare HMO plans, please review the plan of care and approve it. It will need to be FAXED BACK to us at [phone] for Medicare purposes. For Medicare only, by signing this I certify the plan of care. Please let me know if there are questions or concerns regarding this plan of care. Physician Signature: Date:
--- NOTE | 2023-10-25 19:52 | HP.PTDCNRP_ITS ---
Patient Information Patient Information: ELIS BILLS was seen in my office for initial evaluation on 05/14/23. The following Plan of Care was established for this patient: POC Established Initial Frequency: 2-3x /Week Initial Duration: 4-6 Weeks Anticipated Interventions Patient/Client Instruction: Educate patient on: Condition, Plan of Care and Risk Factors For the Purpose of:: To improve self management Therapeutic Exercise to Include: Strength training, Body mechanics, Postural training, Flexibilty training, Neuromotor development and Dynamic Lumbar Stabilization For the Purpose of:: To decrease pain, To increase ROM, To improve muscle performance and motor function, To increase tolerance to activity/condition/ position, To improve ability of physical actions for home/community/work/leisure and To improve gait and locomotor functions Last Seen Last Seen: This patient was last seen in our office 06/11/24. Pertinent comments regarding their Physical therapy will appear below: This patient has not returned to Physical Therapy and is appropriate to return to MD for further follow-up as needed. At this point I will be discontinuing this patient from physical therapy. I would be happy to see this patient again in the future if found appropriate by the physician. Thank you! Flora Valerio, PT, Cert MDT Balance/Gait/Functional tests Balance/Special Test Scores Oswestry Low Back Score: 11
== END 2023-06-11 19:00 | disposition home or self-care (01) ==
LOC: PT 08:00
PROVIDERS: PCP Preventive Medicine Occupational Medicine; Visit Provider Orthopaedic Surgery
DX: M48.061 Spinal stenosis, lumbar region without neurogenic claudication (principal); M47.816 Spondylosis without myelopathy or radiculopathy, lumbar region
CPT/HCPCS: 97110; 97112; 97162

== ENCOUNTER → 2023-08-04 | Outpatient (CLI) | payer OTHER, SELFPAY ==
--- OUTSIDE RECORDS SUMMARY | 2023-08-04 12:26 | XMS RPT_ITS | CCD ---
Author Name Unknown Address [address] [place] [address] Organization [facility] Care Team Providers Care Legal Instructor Name Role Phone PROVIDER, UNKNOWN Attending Unavailable PROVIDER, UNKNOWN Admitting Unavailable LOIS SANTOS Referring Unavailable Unavailable Primary Care Provider Unavailoseas wise Unavailable Primary Care Provider UnavailPILAR Maguire Primary Care Unavailable MARANDA LUZ Attending Unavailable Allergies Allergy Classification Reported Allergen(s) Allergy Type Date of Onset Reaction(s) Facility (4 sources) Penicillins; Translations: [PENICILLINS] Propensity to adverse reactions to drug (disorder) 5 [facility] [employer] [facility] Rep[facility] Medications Current Medications Medication Drug Class(es) Dates Sig (Normalized) Sig (Original) atorvastatin 80 mg oral tablet (2 sources) HMG-CoA Reductase Inhibitor Start: 04-24-2019 take 1 tablet by mouth at bedtime atorvastatin (LIPITOR) 80 MG tablet Take 1 Tablet by mouth at bedtime. 30 Tablet 3 04/24/2019 Active clopidogrel 75 mg oral tablet (2 sources) P2Y12 Platelet Inhibitor Start: 04-24-2019 take 1 tablet by mouth once daily clopidogrel (PLAVIX) 75 MG tablet Take 1 Tablet by mouth daily. 30 Tablet 3 04/24/2019 Active esomeprazole 40 mg delayed release oral capsule (2 sources) Proton Pump Inhibitor Start: 04-25-2019 take 1 capsule by mouth once daily 30 minutes before breakfast esomeprazole (NEXIUM) 40 MG capsule Take 1 Capsule by mouth daily (30 minutes before breakfast). 30 Capsule 3 04/25/2019 Active folic acid 1 mg oral tablet (2 sources) Start: 04-25-2019 take 1 tablet by mouth once daily folic acid 1 MG tablet Take 1 Tablet by mouth daily. 30 Tablet 3 04/25/2019 Active lisinopril 2.5 mg oral tablet (2 sources) Angiotensin Converting Enzyme Inhibitor Start: 04-24-2019 take 1 tablet by mouth once daily lisinopril (ZESTRIL) 2.5 MG tablet Take 1 Tablet by mouth daily. 30 Tablet 3 04/24/2019 Active 24 hr nicotine 0.875 mg/hr transdermal system (2 sources) Cholinergic Nicotinic Agonist Start: 04-25-2019 apply 1 dose transdermal route once daily nicotine (NICODERM CQ) 21 MG/24HR patch Place 1 Patch on the skin daily. 30 Patch 3 04/25/2019 Active thiamine 100 mg oral tablet (2 sources) Start: 04-24-2019 take 1 tablet by mouth once daily thiamine 100 MG tablet Take 1 Tablet by mouth daily. 30 Tablet 3 04/24/2019 Active Problems Problem Classification Problem Date Documented Da te Episodic/Chronic Acute cerebrovascular disease (2 sources) Cerebral infarction; Translations: [Cerebral infarction due to unspecified occlusion or stenosis of left posterior cerebral artery] 04-24-2019 Chronic Other injuries and conditions due to external causes (1 source) Other injury of unspecified body region, initial encounter; Translations: [Puncture wound] Onset: 06-14-2023 Episodic Results Test Name Value Interpretation Reference Range Facil ity Encounters Encounter Date Encounter Type Care Provider Facility Start: 06-14-2023 End: 06-14-2023 Emergency department patient visit [facility] Facility:[facility] Start: 10-26-2022 Letter encounter [facility] Start: 10-20-2021 Letter encounter [facility] Start: 04-24-2019 ambulatory UNKNOWN PROVIDER Facili ty:[facility] Plan of Treatment Date Care Activity Detail Author Start: 04-24-[address] [facility] Start: 2009 Measurement of occul t blood in single stool specimen [facility] Start: 2009 Screening for malign ant neoplasm of colon CRC Screening [facility] Start: 2009 Varicella-zoster vac cine (product) Shingles (RZV) Vaccine (1 of 2) [facility] Start: 2004 Screening for malign ant neoplasm of colon [facility] Start: 1977 Hepatitis C screening Hepatitis C An tibody [facility] Start: 1977 Tetanus + diphtheria + acellular pertussis vaccine (product) Tdap Booster [facility] Start: 1974 HIV screening HIV Test [facility] Start: 09-27-1964 COVID-19 Vaccine (1) COVID-19 Vaccin e (1) [facility] Start: 1959 COVID-19 Vaccine (#1) COVID-19 Vacci ne (#1) [facility] Start: 1959 Screening for malign ant neoplasm of colon Colonoscopy [facility] Immunizations Immunization Date Immunization Notes Care Provider Ck belcher 04-24-2019 influenza, injectabl e, quadrivalent, preservative free [facility] 06-04-2017 influenza, injectabl e, quadrivalent, preservative free [facility] 06-04-2017 pneumococcal polysac charide vaccine, 23 valent [facility] 06-08-2015 pneumococcal conjuga te vaccine, 13 valent [facility] 06-05-2015 influenza, seasonal, injectable, preservative free [facility] Payers Date Payer Category Payer Unknown [id number] 2018 Unknown [employer] - HMO/PPO/POS SUPERMED PPO/CLASSIC/PLUS [id number] 2018-Present [address] [place] [address] PPO [id number] 1959 Unknown [id number] Social History Date Type Detail Facility Tobacco smoking stat [facility] Tobacco smoking consumption unknown [facility] Start: 1960 [facility] Purpose Family History No Family History Records FoundNo Family History Records FoundNo Family History Records Found Advance Directives No Advanced Directives Records FoundLatest Code Status on File Code Status Date Activated Date Inactivated Comments Full Code 04/23/2019 9:16 PM 04/24/2019 5:53 PM Documentation of decision pr ocess for this code status: Discussed with patient or surrogate. Thi s is the code status chosen by the patient/surrogate. Latest Code Status on File Code Status Date Activated Date Inactivated Comments Full Code 04/23/2019 9:16 PM 04/24/2019 5:53 PM Question Answer Comments Documentation of decision process for this code status: Discussed with patient or surrogate. This is the code status chosen by the patient/surrogate. Additional Source Comments (unrecognized sect ion and content) No Status Records FoundNo Status Records FoundNo Status Records Found INFORMATION SOURCE (unrecogn ized section and content) DATE CREATED AUTHOR AUTHOR'S LIU ATION 08/17/2021 [email or web address] DATE CREATED AUTHOR AUTHOR'S ORGANIZ ATION 06/16/2023 [facility] FOR RECORDS PERTAINING TO PATIENTS WHO ARE OR HAVE BEEN ENROLLED IN A CHEMICAL DEPENDENCY/SUBSTANCEABUSE PROGRAM, SOME INFORMATION MAY BE OMITTED. This clinical summary was aggregated from multiple sources. Caution should be exercised in using it in the provision of clinical care. This summary normalizes information from multiple sources, and as a consequence, information in this document may materially change the coding, format and clinical context of patient data. In addition, data may be omitted in some cases. CLINICAL DECISIONS SHOULD BE BASED ON THE PRIMARY CLINICAL RECORDS. [facility] [employer] [facility]. provides no warranty or guarantee of the accuracy or completeness of information in this document.
--- NOTE | 2023-08-04 12:30 | RAD_ITS ---
HISTORY: SOB/COUGH/COPD/BRONCHITIS. TECHNIQUE: XR Chest 2 Views. COMPARISON: None. FINDINGS: CARDIOMEDIASTINAL BORDERS: Cardiac silhouette within normal limits in size. Mediastinal contour unremarkable. LUNGS: Radiographically clear. PLEURA: No pleural effusion or pneumothorax seen. OSSEOUS STRUCTURES: Spinal osteophytes present. RAD/Chest PA and Lateral IMPRESSION: No acute cardiopulmonary process identified. Electronically Signed: Fartun Chicas MD at 13:23 EST ,
== END | disposition home or self-care (01) ==
LOC: RAD 12:21
PROVIDERS: PCP Preventive Medicine Occupational Medicine; Referring Provider Preventive Medicine Occupational Medicine; Visit Provider Preventive Medicine Occupational Medicine
DX: J44.0 Chronic obstructive pulmonary disease with (acute) lower respiratory infection (principal)
CPT/HCPCS: 71046

== ENCOUNTER 2025-02-26 20:48 | Inpatient (IN) | payer MEDICARE, OTHER, SELFPAY ==
[2025-02-26] VITALS (7 sets, daily range): BP systolic 138–154; BP diastolic 66–75; PULSE 83–106; RESP 27–46; TEMP 37.3–39.3; O2SAT 94–100; BMI 38.7
--- NOTE | 2025-02-26 21:01 | EKG12_ITS ---
Test Reason : SEPSIS Blood Pressure : */* mmHG Vent. Rate : 105 BPM Atrial Rate : 105 BPM P-R Int : 144 ms QRS Dur : 118 ms QT Int : 384 ms P-R-T Axes : 32 70 16 degrees QTcB Int : 507 ms Sinus tachycardia with Premature atrial complexes Right bundle branch block Abnormal ECG Confirmed by Fausto Dickey ([id number]), editorial project manager LARRY GIBSON ([id number]) on 02/27/2025 11:44:59 AM Referred By: Confirmed By: Fausto Dickey
[2025-02-26] MEDS: 0.9% Normal Saline (1000mL) 1,000 ML 999 ML IV ×2 (21:14→23:09)
[2025-02-26 21:20] LABS: Hematocrit 37.2 % (40-54); Hemoglobin 13.1 g/dL (13.0-16.5); Immature Granulocytes Count 0.120 X10^3/uL (0.0-0.0); Mean Corp Hgb Conc 35.2 g/dL (32-36); Mean Corpuscular Volume 84.7 fL (80-94); Mean Platelet Vol. 9.5 fl (6.2-12.0); NRBC Flagged by Analyzer 0 % (0-5); Platelet Count 315 K/mm3 (150-450); RBC Distribution Width CV 13.4 % (11.6-14.6); RBC Distribution Width SD 42.0 fl (35.1-43.9); Red Blood Count 4.39 M/mm3 (4.6-6.2); White Blood Count 17.4 K/mm3 (4.4-11.0)
--- NOTE | 2025-02-26 21:25 | EDS_ITS ---
HPI History of Present Illness Chief Complaint: Alt LOC Narrative Narrative: Patient is a 64-year-old male with past medical history of hypertension, hyperlipidemia, GERD who presented to the emergency department chief complaint altered mental status. Per at bedside she states that yesterday evening he had a fall and notes that tonight he was not acting his normal self. She notes that she was try to get ready for work and he had been complaining that his knee was bothering him therefore she told him that he should sleep downstairs in the recliner tonight and he said yes that is a good idea. States that when she had to leave he was attempting to go up stairs and was very confused. She states that she then decided to call EMS to have her brought here for further evaluation management. They deny any blood thinning medications [facility] Medical History Hyperlipemia Hypertension GERD (gastroesophageal reflux disease) Home Medications ?Medication ?Instructions ?Recorded ?Last Taken ?Type atorvastatin 80 mg tablet 80 mg PO DAILY 03/22/2211/07 History clopidogrel 75 mg tablet 75 mg PO DAILY 03/22/2211/07 History lisinopril 2.5 mg tablet 2.5 mg PO DAILY 03/22/2211/07 History esomeprazole magnesium 40 mg 40 mg PO DAILY 02/26/25 U nknown History capsule,delayed release folic acid 1 mg tablet 1 mg PO DAILY 02/26/25 Unkno wn History ipratropium 0.5 mg-albuterol 3 mg 3 ml continuous nebu lization Q4H 02/26/25 Unknown History (2.5 mg base)/3 mL nebulization PRN PRN wheezing soln montelukast 10 mg tablet 10 mg PO DAILY 02/26/25 Unkn own History thiamine HCl (vitamin B1) 100 mg 100 mg PO DAILY 02/26 Unknown History tablet umeclidinium 62.5 mcg-vilanterol 1 ea inhalation DAILY 02/26/25 Unknown History 25 mcg/actuation powdr for inhalation (Anoro Ellipta) Allergy/AdvReac Type Severity Reaction Status Date / Time Penicillins (PCN) Allergy Unknown - Verified 02/26/25 20:54 WAS A BABY Social History Smoking Status: Current every day smoker tobacco type: cigarettes ROS ROS ED ROS Narrative Constitutional: Complains of fever denies any headaches, lightheadedness Eyes: Denies double vision blurry vision changes vision Cardiovascular: Denies chest pain Respiratory: Complains of cough denies shortness of breath Abdomen: Denies abdominal pain nausea vomit diarrhea : Denies any urinary symptoms Neurological: Denies any numbness, weakness, tingling Musculoskeletal: Denies any back pain Skin: Denies any rashes or lesions EXAM Physical Exam Narrative Exam Narrative: General: Patient lying in bed did appear to be not feeling well overall Head: atraumatic, normocephalic Eyes: PERRL bilaterally, EOMI Black no conjunctival injection noted Neck: Soft, supple, trachea midline Cardiovascular: Patient tachycardic with a regular rhythm Respiratory: Clear to auscultation bilaterally Abdomen: No tenderness to palpation, soft, nondistended Extremities: Radial pulses +2/4 in the bilateral extremities, +5/5 strength noted in the bilateral upper and lower extremities Neurological: Patient following commands knew that he was at the hospital was confused on the year Skin: Warm, dry, diaphoretic Const Vital Signs: 02/26/25 20:50 02/26/25 20:54 02/26/25 20:59 Temperature 102.7 F H 102.7 F H Temperature Source Oral Oral Pulse Rate 106 H 99 Respiratory Rate 28 H 46 H Respiratory Effort Short of Breath Labored Respiratory Depth Shallow Respiratory Pattern Tachypnea Blood Pressure 154/75 H 142/66 H Blood Pressure Mean 101 91 Pulse Ox 94 96 Oxygen Delivery Method Room Air Room Air Room Air 02/26/25 21:01 02/26/25 21:54 02/26/25 22:00 Temperature 100.2 F H 100.2 F H Temperature Source Oral Oral Pulse Rate 94 91 Respiratory Rate 28 H 27 H Respiratory Effort Respiratory Depth Respiratory Pattern Blood Pressure 139/70 H 139/70 H Blood Pressure Mean 93 93 Pulse Ox 97 94 94 Oxygen Delivery Method Room Air Room Air Room Air 02/26/25 22:59 02/27/25 00:00 Temperature 99.2 F H 98.3 F Temperature Source Oral Oral Pulse Rate 83 80 Respiratory Rate 33 H 16 Respiratory Effort Respiratory Depth Respiratory Pattern Blood Pressure 138/74 H 132/70 H Blood Pressure Mean 95 90 Pulse Ox 100 94 Oxygen Delivery Method Room Air Room Air MDM MDM MDM Narrative Medical decision making narrative: Patient is a 64-year-old male who presents to the emergency department with a chief complaint of altered mental status and not feeling well. On the differential diagnosis includes but not limited to intracranial hemorrhage, pneumonia, pneumothorax, electrolyte abnormality, ACS. Once the workup is obtained and reviewed he will be reevaluated. Patient was given 30 cc/kg bolus of IV fluids based on ideal body weight as he has a BMI of greater than 30 therefore 2500 mL will be given he will be given a gram of Tylenol for his fever. Patient CBC reviewed and showed a leukocytosis of 17,000, hemoglobin 13.1, platelet count 315. Patient's venous blood gas reviewed showed a pH 7.47. Patient sodium was low indicating hyponatremia at 126, anion gap of 18 carbon dioxide low at 18.9. Patient lactic acid was normal less than 1, AST and ALT are 42 and 18 respectively. Patient troponin was 53 delta troponin pending. Patient's EKG reviewed and showed sinus tachycardia with PACs noted with a rate of 105 bpm with evidence of right bundle branch block. Patient's EKG from April 22, 2019 was reviewed which showed evidence of right bundle branch block at that point time as well.. Patient urinalysis reviewed showed negative leukocyte esterase negative nitrites 0-5 white cells with 3+ bacteria this was sent for culture. Patient's chest x-ray was reviewed and showed cardiomegaly with mild congestion. This was reviewed by myself and by radiology. Patient was given vancomycin at 2307 and cefepime at 2307 as well. At 2307 there is still no identifiable source of infection. Patient's abdomen remains benign no tenderness to palpation At this point in time will discuss case with hospitalist for admission for altered mental status, fever, infection of unclear etiology. Discussed case with hospitalist Dr. Oneal who accept patient for admission t o the intensive care unit. He is requesting adding CT chest on as well as CT abdomen pelvis with IV contrast, drug screen and alcohol level. These were ordered. Updated the patient and at bedside who is agreeable this plan all question concerns answered. Lab Data Labs: Laboratory Results - last 24 hr 02/26/25 02/26/25 02/26/25 20:20 20:55 23:12 WBC 17.4 H RBC 4.39 L Hgb 13.1 Hct 37.2 L MCV 84.7 MCH 29.8 MCHC 35.2 RDW Std Deviation 42.0 RDW Coeff of Carlos 13.4 Plt Count 315 MPV 9.5 Immature Gran % (Auto) 0.700 Neut % (Auto) 87.3 H Lymph % (Auto) 3.9 L [place] % (Auto) 7.3 Eos % (Auto) 0.3 Baso % (Auto) 0.5 Absolute Neuts (auto) 15.2 H Absolute Lymphs (auto) 0.68 L Nucleated RBC % 0 PT 15.3 H INR 1.2 APTT 34.5 Sodium 126 L Potassium 4.0 Chloride 90 L Carbon Dioxide 18.9 L Anion Gap 18 H BUN 16 Creatinine 1.19 Estim Creat Clear Calc 78.80 Est GFR (MDRD) Non-Af 68 BUN/Creatinine Ratio 13.5 Glucose 111 H Lactic Acid < 1.0 Calcium 9.3 Total Bilirubin 0.88 AST 42 H ALT 18 Alkaline Phosphatase 110 Troponin T High Sens 53 H Troponin T Hi Sens 2 Hr 49 H Total Protein 7.9 Albumin 4.1 Globulin 3.8 Albumin/Globulin Ratio 1.1 Urine Color Yellow Urine Clarity Clear Urine pH 6.0 Ur Specific [place] 1.020 Urine Protein 100 H Urine Glucose (UA) Normal Urine Ketones 5 H Urine Occult Blood 150 H Urine Nitrite Negative Urine Bilirubin Negative Urine Urobilinogen Normal Ur Leukocyte Esterase Negative Urine RBC 0-5 SEEN Urine WBC 0-5 SEEN Ur Squamous Epith Cells 0-5 SEEN Ur Renal Epithelial Cell 0-5 SEEN Urine Bacteria 3+ Hyaline Casts 5-10 SEEN Fine Granular Casts 10-25 SEEN Urine Mucus 0 SEEN ABG Data ABG results: ABG 02/26/25 22:22 Specimen Type SERGIO Sample Site Not entered O2 % 4.0 VBG pH 7.47 H VBG pO2 68 H VBG HCO3 24 VBG Total CO2 25 VBG O2 Sat (Calc) 95 H VBG Base Excess 0 POC Mix VBG pCO2 Pt Tmp 32.9 L O2 Delivery Device Not entered Radiography Diagnostic Testing: Clinical Impression(s) from Imaging Studies Brain CT 02/26/25 21:30 IMPRESSION: 1. Small vessel ischemic/degenerative changes. 2. No acute intracranial hemorrhage, midline shift or mass effect. If symptoms persist, further evaluation with MRI is recommended. Reading Location: [facility] Cervical Spine CT 02/26/25 21:30 IMPRESSION: No acute fracture. Reading Location: [facility] Knee X-Ray 02/26/25 21:45 IMPRESSION: Degenerative changes as above. Reading Location: [facility] Chest X-Ray 02/26/25 21:47 IMPRESSION: Cardiomegaly with mild congestion. Reading Location: [facility] Discharge Plan Triage Chief Complaint: Alt LOC ED Provider: Austin Perez Dx/Rx/DC Orders Clinical Impression: Fever, Altered mental status, Leukocytosis, Hyponatremia Prescriptions: No Action atorvastatin 80 mg tablet 80 mg PO DAILY clopidogrel 75 mg tablet 75 mg PO DAILY lisinopril 2.5 mg tablet 2.5 mg PO DAILY ipratropium-albuterol 0.5 mg-3 mg(2.5 mg base)/3 mL solution for nebulization 3 ml continuous nebulization Q4H PRN PRN (Reason: wheezing) esomeprazole magnesium 40 mg capsule,delayed release(DR/EC) 40 mg PO DAILY folic acid 1 mg tablet 1 mg PO DAILY thiamine HCl (vitamin B1) 100 mg tablet 100 mg PO DAILY umeclidinium-vilanterol [Anoro Ellipta] 62.5-25 mcg/actuation blister with device 1 ea INHALATION DAILY montelukast 10 mg tablet 10 mg PO DAILY Primary Care Provider: Fidencio Sanders Referrals: Jaime Lanza DO [Non-Staff] - Print Language: Urdu Disposition Disposition: Acute Care Hospital [facility]
--- NOTE | 2025-02-26 21:30 | CT_ITS ---
EXAM: CT Cervical Spine Without Intravenous Contrast CLINICAL INDICATION: FALL TECHNIQUE: Axial computed tomography images of the cervical spine without intravenous contrast. This CT exam was performed using one or more of the following dose reduction techniques: automated exposure control, adjustment of the mA and/or kV according to patient size, and/or use of iterative reconstruction technique. COMPARISON: No relevant prior studies available. FINDINGS: VERTEBRAE: 3 mm sclerotic lesion of C4 could be a bone island. No acute fracture. DISCS/SPINAL CANAL/NEURAL FORAMINA: No acute findings. No significant spinal canal stenosis. SOFT TISSUES: Unremarkable. OTHER FINDINGS: Degenrative cervical. CT/Spine Cervical without Contras IMPRESSION: No acute fracture. Reading Location: [id number]
--- NOTE | 2025-02-26 21:30 | CT_ITS ---
EXAM: CT Head Without Intravenous Contrast CLINICAL INDICATION: FALL ON THINNERS, AMS TECHNIQUE: Axial computed tomography images of the head/brain without intravenous contrast. This CT exam was performed using one or more of the following dose reduction techniques: automated exposure control, adjustment of the mA and/or kV according to patient size, and/or use of iterative reconstruction technique. COMPARISON: No relevant prior studies available. FINDINGS: BRAIN AND EXTRA-AXIAL SPACES: Brain atrophy is. Areas of decreased attenuation in the deep cerebral white matter are consistent with small vessel ischemic/degenerative changes. No acute intracranial hemorrhage, midline shift or mass effect. If symptoms persist, further evaluation with MRI is recommended. BONES/JOINTS: Unremarkable. No acute fracture. SOFT TISSUES: Unremarkable. SINUSES: Unremarkable as visualized. No acute sinusitis. MASTOID AIR CELLS: Unremarkable as visualized. No mastoid effusion. CT/Brain/Head without Contrast IMPRESSION: 1. Small vessel ischemic/degenerative changes. 2. No acute intracranial hemorrhage, midline shift or mass effect. If symptoms persist, further evaluation with MRI is recommended. Reading Location: [id number]
--- OUTSIDE RECORDS SUMMARY | 2025-02-26 21:42 | XMS RPT_ITS | CCD ---
Author Organization [facility] Care Team Providers Care Business Associate Name Role Phone Unavailable Primary Care Provider UnavailPilar Nayak DO Primary Care Provider PROVIDER, UNKNOWN Referring Unavailable PILAR STEELE F Primary Care Unavailable Myla COYLE Pilar F Primary Care Provider Myla Pilar Primary Care Unavailable Pilar Steele Attending Unavailable Myla Pilar Referring Unavailable Juarez Dewitt Attending Unavailable Myla Pilar Primary Care Unavailable Myla Pilar Primary Care Unavailable Pilar Steele Attending Unavailable Myla Pilar Referring Unavailable Myla COYLE Pilar F Primary Care Provider [phone] Unavailable Primary Care Provider Unavailoseas Wu RN, Brooke Unavailable Unavailable PREBISHBERTHA Attending Unavailable MYLA PILAR F Primary Care Unavailable MYLA, PILAR F Primary Care Unavailable EVERTON DECKER Attending Unavailable EVERTON DECKER Referring Unavailable MYLA, PILAR F Primary Care Unavailable PRESHELIA, BERTHA Attending Unavailable MYLA PILAR F Primary Care Unavailable LOIS KEE Attending Unavailable MYLA PILAR F Primary Care Unavailable LOIS KEE Referring Unavailable LOIS KEE Admitting Unavailable LOIS KEE Attending Unavailable OTOOLE, MICHAELA Consulting Unavailable MYLA, PILAR F Primary Care Unavailable PREBISH, BERTHA Attending Unavailable PREKIRSTINSH BERTHA Referring Unavailable EVERTON DECKER Attending Unavailable MYLA PILAR F Primary Care Unavailable MYLA, PILAR F Primary Care Unavailable LOIS KEE Referring Unavailable LOIS KEE Attending Unavailable MYLA, PILAR F Primary Care Unavailable MYLA, PILAR F Primary Care Unavailable SHELTON AGUILERA Referring Unavail able MYLA, PILAR F Primary Care Unavailable SHELTON AGUILERA Referring Unavail able MYLA, PILAR F Primary Care Unavailable BRIGEMAN, LOIS Referring Unavailable MYLA, PILAR F Primary Care Unavailable LOIS KEE Referring Unavailable MYLA, PILAR F Primary Care Unavailable BERTHA SCHUMACHER Attending Unavailable MYLA, PILAR F Primary Care Unavailable BRIAN ANGLIN Attending Unava ilable MYLA, PILAR F Primary Care Unavailable TAMMY FONSECAI Admitting Unavailable CALEBZITAMMYI Attending Unavailable MYLA, PILAR F Primary Care Unavailable PREBISH, BERTHA Referring Unavailable DHIRAJ HERR Attending Unavailable MYAL, PILAR F Primary Care Unavailable YASHIRA GONSALES Attending Unavailable MYLA, PILAR F Primary Care Unavailable LOIS KEE Attending Unavailable MYLA, PILAR F Primary Care Unavailable LOIS KEE Referring Unavailable MYLA, PILAR F Primary Care Unavailable PREBISH, BERTHA Attending Unavailable MYLA, PILAR F Primary Care Unavailable PREBISH, BERTHA Referring Unavailable EVERTON DECKER Attending Unavailable MYLA, PILAR F Primary Care Unavailable PILAR REYES Referring Unavailable MYLA, PILAR F Primary Care Unavailable VARUN PRATT Attending Unavailable LOIS KEE Referring Unavailable Veronica Murillo Unavailable [phone] NON-EPICCARE, PROVIDER Primary Care Unavailab le PROVIDER, UNKNOWN Admitting Unavailable PROVIDER, UNKNOWN Attending Unavailable BRIAN ANGLIN Referring Unavaila ble REQUEST, IP PHYSICAL THERAPY SERVICE Consulting Unavailable NON-EPICCARE, PROVIDER Primary Care Unavailab nkechi WAGNER, AURA Admitting Unavailable AURA WAGNER Attending Unavailable NON-EPICCARE, PROVIDER Primary Care Unavailab le PROVIDER, UNKNOWN Admitting Unavailable CONSULT, IP NEUROLOGY Consulting UnavailRACHNA Davis Attending Unavailable NON-EPICCARE, PROVIDER Primary Care Unavailab le PROVIDER, UNKNOWN Admitting Unavailable MECHELLE FERREIRA Attending Unavailable BRIAN ANGLIN Referring Unavaila ble PROVIDER, UNKNOWN Attending Unavailable NON-EPICCARE, PROVIDER Primary Care Unavailab nkechi WAGNER, AURA Admitting Unavailable NON-EPICCARE, PROVIDER Primary Care Unavailab ANNA Johnson Attending Unavailable PROVIDER, UNKNOWN Admitting Unavailable PROVIDER, UNKNOWN Admitting Unavailable NON-EPICCARE, PROVIDER Primary Care Unavailab nkechi THOMPSONALID, AURA Referring Unavailable VERONICA BUTT Attending Unavailable Allergies Allergy Classification Reported Allergen(s) Allergy Type Date of Onset Reaction(s) Facility Penicillins (antibiotic) (5 sources) Penicillins Drug Allergy 5 Unknown [facility] (20 sources) Penicillins; Translations: [PENICILLINS] Propensity to adverse reactions to drug 5 Unknown, Other: See Comments [facility] (16 sources) Roflumilast; Translations: [ROFLUMILAST] Drug Allergy 4 Rash [facility] Work Phone: (10 sources) Roflumilast Drug Allergy 4 Rash [facility] Medications Current Medications Medication Drug Class(es) Dates Sig (Normalized) Sig (Original) acetaminophen 325 mg / HYDROcodone bitartrate 5 mg oral tablet (4 sources) Opioid Agonist Start: 03-22-2022 take 1 tablet by mouth every six hours as needed Hydrocodone-Aceta minophen Active 1 TABLET PO EVERY 6 HOURS NEEDED 12 March 22, 2022 [id number] 200 actuat albuterol 0.09 mg/actuat metered dose inhaler (20 sources) beta2-Adrenergic Agonist Start: 10-26-2024 take 2 puff(s) by mouth every four hours as needed for wheezing albuterol (PROVENTIL HFA) INHALATION HFA inhaler (VENTOLIN,PROAIR, PROVENTIL) 90mcg Inhale 2 Puffs by mouth every 4 hours as needed for Wheezing or Shortness of Breath. 18 g 2 10/26/2024 1:36 PM EDT 10/26/2024 Active Start: 10-24-2024 2.5 mg, Nebuli zation, EVERY 4 HOURS RT, First dose on Wed10/25/24 at 0000, Until Discontinued Start: 10-03-2024 albuterol (PRO VENTIL) (2.5 MG/3ML) 0.083% nebulizer solution Use 2.5 mg via nebulizer every 4 hours as needed for Wheezing or Shortness of Breath. 10/03/2024 Active Start: 12-02-2023 take 2.5 mg by inhal ation every four hours as needed for chronic obstructive pulmonary disease and chronic obstructive pulmonary disease albuterol (PROVENTIL) 2.5 mg /3 mL (0.083 %) nebulizer solution Indications: Chronic obstructive pulmonary disease, unspecified COPD type (HCC) Use 3 mL via nebulizer every 4 hours as needed for wheezing/shortness of breath. Inhale over 5-15 minutes 12/02/2023 Active Start: 11-11-2023 End: 01-06-2024 take 2 puff(s) by inhalation every four hours as needed for wheezing albuterol HFA (PROVENTIL HFA, VENTOLIN HFA) 90 mcg/actuation inhaler Inhale 2 Puffs as instructed every 4 hours as needed for wheezing/shortness of breath. 3 Each 3 01/06/2024 Active Start: 08-20-2023 End: 10-19-2023 take 3 mL by inhalation three times daily albuterol (PROVENTIL) 2.5 mg /3 mL (0.083 %) nebulizer solution Indications: Chronic obstructive pulmonary disease, unspecified COPD type (HCC) Use 3 mL via nebulizer three times a day. Inhale over 5-15 minutes 810 mL 3 10/19/2023 Active Start: 08-27-2014 take 2 puff(s) by in halation every six hours as needed for wheezing albuterol HFA (PROVENTIL HFA, VENTOLIN HFA) 90 mcg/actuation inhaler Indications: Acute bronchitis Inhale 2 Puffs as instructed every 6 hours as needed for Wheezing/Shortness of Breath. 1 Inhaler 2 08/27/2014 Active Comment on above: Inhale 2 Puffs as in structed every 6 hours as needed for Wheezing/Shortness of Breath. Use 3 mL via nebuliz er three times a day. Inhale over 5-15 minutes albuterol 0.833 mg/ml / ipratropium bromide 0.167 mg/ml inhalation solution (20 sources) Anticholinergic, beta2-Adrenergic Agonist Start: End: ipratropium-albuter ol (DUO-NEB) 0.5-2.5 (3) MG/3ML nebulizer solution Use 3 mL via nebulizer every 4 hours as needed for Wheezing. 60 Each 2 11/17/2024 Active atorvastatin 80 mg oral tablet (20 sources) HMG-CoA Reductase Inhibitor Start: End: take 1 tablet by mouth at bedtime atorvastatin (LIPITOR) 80 mg tablet Take 1 Tablet by mouth at bedtime. 90 Tablet 3 10/26/2024 1:23 PM EDT 10/26/2024 Active take 1 tablet by mouth once renan y atorvastatin (LIPITOR) 20 mg tablet Take 20 mg by mouth once daily. Unsure of dose 0 Active Comment on above: Take 20 mg by mouth once daily. Unsure of dose azithromycin 250 mg oral tablet (1 source) Macrolide Antimicrobial Start: 10-26-19 End: 10-30-19 250 mg, Oral, DAILY, 4 doses, First dose on Wed10/25/24 at 0900, Last dose on Wed10/28/24 at 0900 [id number] 1000 mg injection (1 source) Cephalosporin Antibacterial Start: 10-26-19 End: 10-30-19 1,000 mg, Intravenous, EVERY 24 HOURS ANTIBIOTIC, 4 doses, First dose on Wed10/25/24 at 1000, Last dose on Wed10/28/24 at 1000 celecoxib 200 mg oral capsule (20 sources) Nonsteroidal Anti-inflammatory Drug take 1 capsule by mouth twice daily celecoxib (CELEBREX) 200 mg capsule Take 200 mg by mouth two times a day. 0 Active Comment on above: Take 200 mg by mouth two times a day. clopidogrel 75 mg oral tablet (20 sources) [id number] Platelet Inhibitor Start: 08-05-19 take 1 tablet by mouth once daily in the evening clopidogrel (Plavix) 75 MG tablet Take 1 Tablet by mouth daily. 90 Tablet 3 10/26/2024 1:23 PM EDT 10/26/2024 Active Start: 08-05-2024 take 1 tablet by shahla th once daily clopidogrel (PLAVIX) 75 mg tablet Take 1 tablet by mouth once daily. Patient should start on August 05, 2024. 08/05/2024 Active Start: 04-24-2019 End: 10-26-2024 take 1 tablet by mouth once daily clopidogrel (PLAVIX) 75 MG tablet Take 1 Tablet by mouth daily. 30 Tablet 3 04/24/2019 10/26/2024 Discontinued Comment on above: Take 75 mg by mouth once daily. cyclobenzaprine hydrochloride 10 mg oral tablet (20 sources) Muscle Relaxant Start: 07-29-19 take 1 tablet by mouth every eight hours as needed cyclobenzaprine (FLEXERIL) 10 mg tablet Take 1 tablet by mouth three times a day as needed. 15 tablet 07/29/2024 Active Start: 02-24-2024 End: 05-24-2024 take 1 tablet by mouth three times daily as needed cyclobenzaprine (FLEXERIL) 10 mg tablet Indications: Lumbar spondylosis , Spinal 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 Take 1 tablet by mouth three times a day as needed. 90 tablet 2 02/24/2024 05/24/2024 Active docusate sodium 100 mg oral capsule (17 sources) Start: 07-29-2024 take 1 capsule by mouth twice daily Docusate Sodium (DSS) 100 MG CAPS Take 100 mg by mouth 2 times daily. 07/29/2024 Active esomeprazole 40 mg delayed release oral capsule (19 sources) Proton Pump Inhibitor Start: 04-25-2019 End: 11-17-2024 take 1 capsule by mouth once daily 30 minutes before breakfast esomeprazole (NEXIUM) 40 MG capsule Take 1 Capsule by mouth daily (30 minutes before breakfast). 30 Capsule 3 11/17/2024 Active folic acid 1 mg oral tablet (20 sources) Start: 10-24-2024 End: 10-25-2024 take 1 mg intravenously once daily 1 mg, Intravenous Push, DAILY, First dose on Wed10/24/24 at 2100, Until Discontinued Start: 04-25-2019 End: 11-17-2024 take 1 tablet by mouth once daily folic acid 1 MG tablet Indications: COPD exacerbation (HCC) Take 1 Tablet by mouth daily. 90 Tablet 3 11/17/2024 Active indomethacin 25 mg oral capsule (7 sources) Nonsteroidal Anti-inflammatory Drug Start: 12-07-2024 take 1 capsule by mouth three times daily as needed for pain indomethacin (INDOCIN) 25 MG capsule Take 1 Capsule by mouth 3 times daily as needed for Pain. 30 Capsule 12/07/2024 Active Start: 12-02-2024 50 mg, Oral, P RN, Starting on 12/02/24 at 1523, Until Discontinued, headache lisinopril 10 mg oral tablet (20 sources) Angiotensin Converting Enzyme Inhibitor Start: 10-26-2024 take 1 tablet by mouth once daily in the evening lisinopril (ZESTRIL) 10 MG tablet Take 1 Tablet by mouth daily. 90 Each 3 10/26/2024 1:23 PM EDT 10/27/2024 Active Start: 10-25-2024 End: 10-26-2024 take 5 mg by mouth once daily 5 mg, Oral, DAILY, First dose (after last modification) on Wed10/25/24 at 0900, Until Discontinued Start: 04-24-2019 End: 10-26-2024 take 1 tablet by mouth once daily lisinopril 2.5 mg tablet Take 2.5 mg by mouth once daily. 07/01/2023 Active montelukast 10 mg oral tablet (20 sources) Leukotriene Receptor Antagonist Start: 08-20-2023 End: 10-19-2023 take 1 tablet by mouth at bedtime montelukast (SINGULAIR) 10 MG tablet Take 10 mg by mouth at bedtime. 10/19/2023 Active Comment on above: Take 1 tablet by shahla th daily at bedtime. moxifloxacin 400 mg oral tablet (3 sources) Quinolone Antimicrobial Start: 10-26-2024 End: 10-29-2024 take 1 tablet by mouth once daily in the evening moxifloxacin (AVELOX) 400 MG tablet Take 1 Tablet by mouth daily for 3 days. 3 Tablet 10/26/2024 1:23 PM EDT 10/26/2024 10/29/2024 Active omeprazole 10 mg delayed release oral capsule (20 sources) Proton Pump Inhibitor Start: 06-08-2017 take 10 mg by mouth once daily Omeprazole Active 10 MG PO DAILY June 08, 2017 1:00am take 1 capsule by mouth once ree ly omeprazole (PRILOSEC) 20 MG capsule Take 20 mg by mouth daily. Active OMEPRAZOLE (PRIL OSEC ORAL) Take 10 mg by mouth as needed. Unsure of dose Active Comment on above: Take 10 mg by mouth as needed. Unsure of dose oxyCODONE hydrochloride 5 mg oral tablet (1 source) Opioid Agonist Start: End: take 1 tablet by mouth every eight hours as needed oxyCODONE IR (ROXICODONE) 5 mg immediate release tablet Indications: Spinal stenosis, lumbar region, without neurogenic claudication Take 1 tablet by mouth every 8 hours as needed for up to 3 days. 9 tablet 08/02/2024 08/05/2024 Active Pediatric Multivitamins-Iron (Cerovite Jr) chew tab (14 sources) Start: take 1 tablet by mouth once daily in the evening Pediatric Multivitamins-Iron (Cerovite Jr) chew tab Take 1 Tablet by mouth daily. 30 Tablet 2 10/26/2024 1:23 PM EDT 10/27/2024 Active perflutren lipid microspheres 1.3 mL in NaCl (PF) 0.9% 10 mL injection (DEFINITY) (1 source) Start: End: perflutren lipid microspheres 1.3 mL in NaCl (PF) 0.9% 10 mL injection (DEFINITY) predniSONE 20 mg oral tablet (20 sources) Start: End: take 1 tablet by mouth twice daily predniSONE (DELTASONE) 20 MG tablet Indications: COPD exacerbation (HCC) Take 1 Tablet by mouth 2 times daily. 60 Tablet 1 11/17/2024 01/16/2025 Active Start: 10-27-2024 End: 10-30-2024 take 2 tablets by mouth once daily in the evening predniSONE (DELTASONE) 20 MG tablet Take 2 Tablets by mouth daily for 3 doses. 6 Tablet 10/26/2024 1:23 PM EDT 10/27/2024 10/30/2024 Active Start: 10-25-2024 End: 10-30-2024 40 mg, Oral, DAILY, 5 doses, First dose on Wed10/25/24 at 0900, Last dose on 10/29/24 at 0900 Start: 01-17-2024 End: 04-06-2024 take 2 tablets by mouth once daily predniSONE (DELTASONE) 20 mg tablet Take 2 tablets by mouth once daily. 14 tablet 01/17/2024 04/06/2024 Discontinued Start: 12-03-2023 End: 12-14-2023 take 2 tablets by mouth once daily, then take 1.5 tablets by mouth once daily, then take 1 tablet by mouth once daily, then take 0.5 tablet by mouth once daily predniSONE (DELTASONE) 20 mg tablet Take 2 tablets by mouth once daily for 2 days, THEN 1.5 tablets once daily for 3 days, THEN 1 tablet once daily for 3 days, THEN 0.5 tablets once daily for 3 days. 13 tablet 0 12/03/2023 12/14/2023 Start: 10-29-2023 predniSONE (DE LTASONE) 20 mg tablet Indications: Lumbar spondylosis Take 1 tablet by mouth as directed. TID for 4 days then decrease to bid for 4 days then daily for 4 days then stop. 24 tablet 0 10/29/2023 Active Start: 08-27-2014 take 2 tablets by mo [facility] once daily predniSONE (DELTASONE) 20 mg tablet Indications: Acute bronchitis Take 2 tablet by mouth daily for 5 days. 10 tablet 0 08/27/2014 Active Comment on above: Take 2 tablet by [facility] daily for 5 days. Take 1 tablet by [facility] as directed. TID for 4 days then decrease to bid for 4 days then daily for 4 days then stop. 125 ml sodium chloride 9 mg/ml prefilled syringe (1 source) Start: 11-11-2023 End: 11-18-2023 sodium chloride 0.9 % (flush) 10 mL (BD POSIFLUSH) thiamine 100 mg oral tablet (20 sources) Start: 11-17-2024 take 1 tablet by mouth once daily vitamin B-1 (THIAMINE) 100 MG tablet Take 1 Tablet by mouth daily. 30 Tablet 3 11/17/2024 Active Start: 10-27-2024 take 100 mg by mouth once renan y 100 mg, Oral, DAILY, First dose on Wed10/27/24 at 0900, Until Discontinued Start: 10-24-2024 200 mg, Intrav enous Push, DAILY, 3 doses, First dose on Wed10/24/24 at 2100, Last dose on Wed10/26/24 at 0900 Start: 12-02-2023 End: 04-06-2024 take 1 tablet by mouth three times daily thiamine (VITAMIN B1) 100 mg tablet Take 1 tablet by mouth three times a day. 90 tablet 12/02/2023 04/06/2024 Discontinued Start: 04-24-2019 End: 11-17-2024 take 1 tablet by mouth once daily in the evening vitamin B-1 (THIAMINE) 100 MG tablet Take 1 Tablet by mouth daily. 30 Tablet 3 10/26/2024 1:23 PM EDT 10/26/2024 11/17/2024 Discontinued (Reorder (*won't e-cancel)) traMADol hydrochloride 50 mg oral tablet (20 sources) Opioid Agonist Start: 08-04-2023 traMADol (ULTR AM) 50 mg tablet 30 actuat umeclidinium 0.0625 mg/actuat / vilanterol 0.025 mg/actuat dry powder inhaler (20 sources) Anticholinergic, beta2-Adrenergic Agonist Start: 10-26-2024 End: 11-17-2025 take 1 puff(s) by mouth once daily umeclidinium-vilan terol (ANORO-ELLIPTA) 62.5-25 mcg/inh AEPB inhalation powder Inhale 1 Puff by mouth daily. 180 Each 3 11/17/2024 11/17/2025 Active varenicline 1 mg oral tablet (20 sources) Partial Cholinergic Nicotinic Agonist Start: 09-19-2023 End: 11-18-2023 varenicline (CHANTIX) 1 mg tablet Take 1 tablet by mouth two times a day. Patient should start on September 19, 2023. 60 tablet 1 09/19/2023 Active Start: 08-20-2023 End: 09-19-2023 take 0.5 tablet by mouth once daily, then take 0.5 tablet by mouth twice daily, then take 1 tablet by mouth twice daily varenicline (CHANTIX) 1 mg tablet Take 0.5 tablets by mouth once daily for 3 days, THEN 0.5 tablets two times a day for 4 days, THEN 1 tablet two times a day for 23 days. 52 tablet 0 08/20/2023 Active Comment on above: Take 0.5 tablets by mouth once daily for 3 days, THEN 0.5 tablets two times a day for 4 days, THEN 1 tablet two times a day for 23 days. Take 1 tablet by [facility] two times a day. Patient should start on September 19, 2023. Completed/Discontinued Medications Medication Drug Class(es) Dates Sig (Normalized) Sig (Original) 0.9% NaCl 10 mL flush (2 sources) Start: 03-16-2024 End: 03-16-2024 0.9% NaCl 10 mL flush Start: 03-16-2024 End: 03-16-2024 10 mL, OTHER, ONCE, 1 dose, On Kiya 03/16/24 at 1130 acetaminophen 500 mg oral ta blet (20 sources) Start: 12-02-2024 End: 12-02-2024 1,000 mg, Oral, STAT, 1 dose , On 12/02/24 at 1444 Start: 10-24-2024 650 mg, Oral, EVERY 4 HOURS PRN, Starting on Wed10/24/24 at 1947, Until Discontinued, Mild Pain (pain score 1,2,3) Start: 07-29-2024 take 2 tablets by mo uth every six hours acetaminophen (TYLENOL) 325 mg tablet Take 650 mg by mouth every 6 hours. 07/29/2024 Active Start: 06-24-2017 take 1000 mg by mout h every eight hours Acetaminophen Active 1000 MG PO EVERY 8 HOURS 90 June 24, 2017 1:00am Start: 06-08-2017 End: 06-24-2017 take 2 tablets by mouth twice daily Acetaminophen (Tylenol Extra Strength) 500 MG tablet Discontinued 2 TABLET PO TWICE A DAY June 08, 2017 1:00am June 24, 2017 12:29pm budesonide 0.25 mg/ml inhalation suspension (20 sources) Corticosteroid Start: 10-19-2023 End: 01-08-2025 take 0.5 mg by mouth twice daily budesonide (PULMICORT) 0.5 MG/2ML nebulizer suspension Inhale 0.5 mg by mouth 2 times daily. 10/19/2023 01/08/2025 Discontinued Start: 08-20-2023 End: 10-19-2023 budesonide (PULMICORT) 0.5 m g/2 mL nebulizer solution Indications: Chronic obstructive pulmonary disease, unspecified COPD type (HCC) Use 2 mL via nebulizer two times a day. 360 mL 3 10/19/2023 Active Comment on above: Use 2 mL via nebuliz er two times a day. 120 actuat budesonide 0.16 mg/actuat / formoterol fumarate 0.0048 mg/actuat / glycopyrrolate 0.009 mg/actuat metered dose inhaler (20 sources) Corticosteroid, beta2-Adrenergic Agonist Start: End: take 2 puff(s) by mouth twice daily Breztri Aerosphere 160-9-4.8 MCG/ACT AERO Inhale 2 Puffs by mouth 2 times daily. 06/19/2024 01/08/2025 Discontinued Start: 06-19-2024 take 2 puff(s) by mo uth twice daily BREZTRI AEROSPHERE 160-9-4.8 mcg/actuation HFA aerosol inhaler INHALE 2 PUFFS TWICE DAILY, RINSE MOUTH AND THROAT AFTER USE. 06/19/2024 Active 20 ml bupivacaine hydrochloride 7.5 mg/ml injection (7 sources) Amide Local Anesthetic Start: 05-10-2024 End: 05-10-2024 bupivacaine(PF) 0.75 % (7.5 mg/mL) 7.5 mg injection (MARCAINE PF) Start: 05-10-2024 End: 05-10-2024 7.5 mg, OTHER, ONCE, 1 dose, On Wed05/10/24 at 0800 Start: 04-26-2024 End: 04-26-2024 bupivacaine(PF) 0.75 % (7.5 mg/mL) 7.5 mg injection (MARCAINE PF) Start: 04-26-2024 End: 04-26-2024 7.5 mg, OTHER, ONCE, 1 dose, On Wed04/26/24 at 0800 Start: 12-16-2023 End: 12-16-2023 bupivacaine(PF) 0.75 % (7.5 mg/mL) 7.5 mg injection (MARCAINE PF) Start: 12-16-2023 End: 12-16-2023 bupivacaine(PF) 0.75 % (7.5 mg/mL) 7.5 mg injection (MARCAINE PF) Start: 10-28-2023 End: 10-28-2023 bupivacaine(PF) 0.75 % (7.5 mg/mL) 7.5 mg injection (MARCAINE PF) Cerovite Jr chew tab (1 source) Start: 10-24-2024 take 1 tablet by mouth once daily 1 Tablet, Oral, DAILY, First dose on Wed10/24/24 at 2100, Until Discontinued 0.4 ml enoxaparin sodium 100 mg/ml prefilled syringe (2 sources) Low Molecular Weight Heparin Start: 10-25-2024 inject 40 mg by subcutaneous injection twice daily 40 mg, Subcutaneous, 2 TIMES DAILY, First dose (after last modification) on Wed10/25/24 at 2100, Until Discontinued Start: 10-24-2024 End: 10-25-2024 inject 40 mg by subcutaneous injection once daily 40 mg, Subcutaneous, DAILY, First dose (after last modification) on Wed10/24/24 at 2100, Until Discontinued 30 actuat fluticasone furoate 0.2 mg/actuat / vilanterol 0.025 mg/actuat dry powder inhaler (4 sources) Corticosteroid, beta2-Adrenergic Agonist Start: 08-04-2023 BREO ELLIPTA 200-25 mcg/dose inhaler 60 actuat formoterol fumarate 0.005 mg/actuat / mometasone furoate 0.2 mg/actuat metered dose inhaler (20 sources) Corticosteroid, beta2-Adrenergic Agonist Start: 01-11-2024 End: 07-15-2024 take 2 puff(s) by inhalation twice daily mometasone-formot britany (DULERA) 200-5 mcg/actuation inhaler Inhale 2 Puffs as instructed two times a day. 39 g 3 01/17/2024 04/06/2024 Discontinued Start: 12-01-2023 End: 06-07-2024 take 2 puff(s) by inhalation twice daily mometasone-formoterol (DULERA) 200-5 mcg/actuation inhaler Inhale 2 Puffs as instructed two times a day. 180 Each 3 12/10/2023 01/11/2024 Discontinued Start: 11-11-2023 take 2 puff(s) by in halation twice daily mometasone-formoterol (DULERA) 200-5 mcg/actuation inhaler Inhale 2 Puffs as instructed two times a day. 3 Each 3 11/11/2023 Active 2 ml furosemide 10 mg/ml injection (1 source) Loop Diuretic Start: 10-24-2024 End: 10-24-2024 take 1 dose intravenously once 20 mg, Intravenous Push, ONCE, 1 dose, On Wed10/24/24 at 2130 Start: 10-24-2024 End: 10-24-2024 take 1 dose intravenously once 20 mg, Intravenous Push , ONCE, 1 dose, On Wed10/24/24 at 2130 12 hr guaiFENesin 600 mg extended release oral tablet (8 sources) Start: 10-24-2024 take 600 mg by mouth twice daily 600 mg, Oral, 2 TIMES DAILY, First dose on Wed10/24/24 at 2030, Until Discontinued Start: 12-02-2023 End: 01-01-2024 take 1 tablet by mouth every twelve hours guaiFENesin (MUCINEX) 600 mg 12 hr tablet Take 1 tablet by mouth every 12 hours. 60 tablet 0 12/02/2023 01/01/2024 Active iohexol (OMNIPAQUE) 350 MG/ML injection (1 source) Start: 12-02-2024 End: 12-02-2024 take 1 dose intravenously once 75 mL, Intravenous Push, Once at Radiology exam, 1 dose, Starting on 12/02/24 at 1516, Until 12/02/24 at 1514, Imaging Protocol Orders iohexol 300 mg injection (OMNIPAQUE 300) (5 sources) Start: 05-10-2024 End: 05-10-2024 iohexol 300 mg injection (OMNIPAQUE 300) Start: 04-26-2024 End: 04-26-2024 iohexol 300 mg injection (OM NIPAQUE 300) Start: 04-26-2024 End: 04-26-2024 300 mg, OTHER, ONCE, 1 dose, On Wed04/26/24 at 0800 Start: 03-16-2024 End: 03-16-2024 iohexol 300 mg injection (OM NIPAQUE 300) Start: 03-16-2024 End: 03-16-2024 300 mg, OTHER, ONCE, 1 dose, On Kiya 03/16/24 at 1130 ipratropium bromide 0.2 mg/ml inhalation solution (1 source) Anticholinergic Start: 10-25-2024 0.5 mg, Nebuli zation, EVERY 4 HOURS RT, First dose on Wed10/25/24 at 0000, Until Discontinued 10 ml lidocaine hydrochloride 10 mg/ml injection (10 sources) Antiarrhythmic, Amide Local Anesthetic Start: 05-10-2024 End: 05-10-2024 100 mg, OTHER, ONCE, 1 dose, On Wed05/10/24 at 0830 Start: 05-10-2024 End: 05-10-2024 lidocaine (PF) 10 mg/mL (1 % ) 100 mg injection (XYLOCAINE) Start: 04-26-2024 End: 04-26-2024 lidocaine (PF) 10 mg/mL (1 % ) 100 mg injection (XYLOCAINE) Start: 04-26-2024 End: 04-26-2024 100 mg, OTHER, ONCE, 1 dose, On Wed04/26/24 at 0800 Start: 03-16-2024 End: 03-16-2024 lidocaine (PF) 10 mg/mL (1 % ) 100 mg injection (XYLOCAINE) Start: 03-16-2024 End: 03-16-2024 100 mg, OTHER, ONCE, 1 dose, On Kiya 03/16/24 at 1130 Start: 12-16-2023 End: 12-16-2023 lidocaine (PF) 10 mg/mL (1 % ) 100 mg injection (XYLOCAINE) Start: 12-16-2023 End: 12-16-2023 lidocaine (PF) 10 mg/mL (1 % ) 100 mg injection (XYLOCAINE) Start: 10-28-2023 End: 10-28-2023 lidocaine (PF) 10 mg/mL (1 % ) 100 mg injection (XYLOCAINE) MEDICATION, NON-DATABASE (20 sources) End: 04-06-2024 MEDICATION, NON-DATABASE OTC cold med 04/06/2024 Discontinued MEDICATION, NON- DATABASE OTC cold med Active MEDICATION, NON- DATABASE OTC cold med 0 Active Comment on above: OTC cold med meloxicam 15 mg oral tablet (6 sources) Nonsteroidal Anti-inflammatory Drug Start: 2016 End: 2016 take 15 mg by mouth once daily Meloxicam Discontinued 15 MG PO DAILY June 08, 2017 1:00am June 24, 2017 12:29pm 1 ml methylPREDNISolone acetate 40 mg/ml injection (5 sources) Corticosteroid Start: 2023 End: 2023 methylPREDNISolone acetate 40 mg injection (DEPO-Medrol) Start: 05-10-2024 End: 05-10-2024 40 mg, OTHER, ONCE, 1 dose, On Wed05/10/24 at 0830 Start: 03-16-2024 End: 03-16-2024 methylPREDNISolone acetate 4 0 mg injection (DEPO-Medrol) Start: 03-16-2024 End: 03-16-2024 40 mg, OTHER, ONCE, 1 dose, On Kiya 03/16/24 at 1130 Start: 09-29-2023 End: 10-05-2023 methylPREDNISolone (MEDROL, LALO,) 4 mg Dose-Pack As package directs 21 tablet 0 09/29/2023 10/05/2023 Active Comment on above: As package directs 24 hr nicotine 0.875 mg/hr transdermal system (20 sources) Cholinergic Nicotinic Agonist Start: 10-24-2024 21 mg, Transdermal, DAILY, First dose on Wed10/24/24 at 2030, Until Discontinued Start: 08-20-2023 End: 01-06-2024 nicotine polacrilex (NICORET TE) 4 mg gum Take 1 Each by mouth as needed. 300 Each 3 01/06/2024 Active Start: 08-20-2023 apply 1 dose transde rmal route every twenty-four hours nicotine (NICODERM CQ) 21 mg/24 hr Apply 1 Patch as directed every 24 hours. 28 Patch 4 08/20/2023 Active Start: 04-25-2019 End: 10-26-2024 apply 1 dose transdermal route once daily nicotine (NICODERM CQ) 21 MG/24HR patch Place 1 Patch on the skin daily. 30 Patch 3 04/25/2019 10/26/2024 Discontinued Comment on above: Apply 1 Patch as dir ected every 24 hours. Take 1 Each by mouth as needed. pantoprazole 20 mg delayed release oral tablet (1 source) Proton Pump Inhibitor Start: take 20 mg by mouth once daily 30 minutes before breakfast 20 mg, Oral, DAILY 30 MIN BEFORE BREAKFAST, First dose on Wed10/25/24 at 0830, Until Discontinued polyethylene glycol 3350 36459 mg powder for oral solution (7 sources) Osmotic Laxative Start: 17 g, Oral, DAILY, First dose on Wed10/24/24 at 2030, Until Discontinued Start: 07-29-2024 polyethylene g lycol 3350 17 gram packet Take 1 Packet by mouth once daily as needed. Dissolve dose in 4 - 8 ounces of liquid and take as directed. 07/29/2024 Active sennosides, detention 8.6 mg oral tablet (1 source) Start: 10-24-2024 take 8.6 mg by mouth once daily 8.6 mg, Oral, DAILY, First dose on Wed10/24/24 at 2030, Until Discontinued 10 actuat tiotropium 0.0025 mg/actuat inhalation spray (20 sources) Anticholinergic Start: 01-06-2024 End: 04-06-2024 take 2 puff(s) by inhalation once daily tiotropium bromide (SPIRIVA RESPIMAT) 2.5 mcg/actuation inhaler Inhale 2 Puffs as instructed once daily. 12 g 3 01/06/2024 04/06/2024 Discontinued Start: 12-03-2023 End: 01-06-2024 take 2 puff(s) by inhalation once daily tiotropium bromide (SPIRIVA RESPIMAT) 2.5 mcg/actuation inhaler Inhale 2 Puffs as instructed once daily. 0 12/03/2023 01/06/2024 Discontinued Start: 11-11-2023 take 2 puff(s) by in halation once daily tiotropium bromide (SPIRIVA RESPIMAT) 2.5 mcg/actuation inhaler Inhale 2 Puffs as instructed once daily. 3 Each 3 11/11/2023 Active Problems Active Problems Problem Classification Problem Date Documented Date Episodic/Chronic Acute cerebrovascular disease (20 sources) Cerebral infarction; Translations: [Cerebral infarction due to unspecified occlusion or stenosis of left posterior cerebral artery] Onset: 07-10-2024 04-24-2019 Chronic Administrative/social admission (1 source) Reduced mobility; Translations: [Other reduced mobility] 10-26-2024 Episodic Alcohol-related disorders (20 sources) Alcohol abuse; Translations: [Alcohol abuse, uncomplicated] Onset: 12-01-2023 04-23-2019 Chronic Asthma (20 sources) Severe persistent asthma; Translations: [Severe persistent asthma, uncomplicated] Onset: 11-11-2023 11-11-2023 Chronic Blindness and vision defects (7 sources) Diplopia; Translations: [Diplopia] 04-23-2019 Episodic Chronic obstructive pulmonary disease and bronchiectasis (20 sources) Chronic bronchitis; Translations: [Unspecified chronic bronchitis] Onset: 08-19-2023 Resolved: 12-01-2023 08-20-2023 Chronic Conduction disorders (15 sources) Right bundle branch block; Translations: [Unspecified right bundle-branch block] Onset: 07-14-2024 07-14-2024 Chronic Disorders of lipid metabolism (15 sources) Hyperlipidemia; Translations: [Hyperlipidemia, unspecified] Onset: 07-10-2024 07-10-2024 Chronic E Codes: Fall (4 sources) Fall; Translations: [Unspecified fall, initial encounter] 03-30-2022 Episodic Esophageal disorders (20 sources) Gastroesophageal reflux disease; Translations: [Gastro-esophageal reflux disease without esophagitis] Onset: 07-10-2024 03-22-2022 Chronic Essential hypertension (15 sources) Hypertensive disorder; Translations: [Essential (primary) hypertension] Onset: 07-10-2024 07-10-2024 Chronic Fracture of upper limb (4 sources) Fracture of triquetral bone of wrist; Translations: [Displaced fracture of triquetrum [cuneiform] bone, right wrist, initial encounter for closed fracture] 03-30-2022 Episodic Headache; including migraine (7 sources) Headache; Translations: [Nonintractable headache, unspecified chronicity pattern, unspecified headache type] Onset: 12-07-2024 12-02-2024 Episodic Other connective tissue disease (6 sources) Neurological symptom; Translations: [Unspecified symptoms and signs involving the nervous system] 04-23-2019 Episodic Other connective tissue disease (4 sources) Hand pain; Translations: [Pain in right hand] 03-30-2022 Episodic Other connective tissue disease (4 sources) Swelling of hand; Translations: [Other specified soft tissue disorders] 03-30-2022 Episodic Other lower respiratory disease (1 source) Dyspnea; Translations: [Dyspnea, unspecified] 08-20-2023 Episodic Other lower respiratory disease (1 source) Wheezing; Translations: [Wheezing] Onset: 08-20-2023 Episodic Other lower respiratory disease (1 source) Acute respiratory distress; Translations: [Respiratory distress] Onset: 10-24-2024 Episodic Other lower respiratory disease (1 source) Hypoxemia; Translations: [Hypoxia] Onset: 10-24-2024 Episodic Other lower respiratory disease (6 sources) Nodule of lung; Translations: [Solitary pulmonary nodule] 01-08-2025 Episodic Other nervous system disorders (1 source) Difficulty walking; Translations: [Difficulty in walking, not elsewhere classified] 10-26-2024 Chronic Other nervous system disorders (1 source) Other chronic pain; Translations: [Chronic bilateral low back pain with sciatica, sciatica laterality unspecified] Onset: 02-24-2024 Chronic Other nutritional; endocrine; and metabolic disorders (20 sources) Morbid obesity; Translations: [Morbid (severe) obesity due to excess calories] Onset: 08-20-2023 08-20-2023 Chronic Other nutritional; endocrine; and metabolic disorders (20 sources) Body mass index 40+ - severely obese; Translations: [Morbid (severe) obesity due to excess calories] Onset: 12-01-2023 12-01-2023 Chronic Other nutritional; endocrine; and metabolic disorders (1 source) Morbid (severe) obesity due to excess calories; Translations: [Obesity, Class III, BMI 40-49.9 (morbid obesity) (HCC)] Onset: 12-01-2023 Chronic Other nutritional; endocrine; and metabolic disorders (3 sources) Body mass index 30+ - obesity; Translations: [Body mass index (BMI) 39.0-39.9, adult] 01-08-2025 Chronic Other screening for suspected conditions (not mental disorders or infectious disease) (1 source) Imaging result abnormal; Translations: [Abnormal findings on diagnostic imaging of other specified body structures] 11-11-2023 Chronic Other upper respiratory disease (3 sources) Allergic disposition; Translations: [Other allergic rhinitis] 01-08-2025 Chronic Pneumonia (except that caused by tuberculosis or sexually transmitted disease) (1 source) Pneumonia, unspecified organism; Translations: [Community acquired pneumonia of right lower lobe of lung] Onset: 10-24-2024 Episodic Residual codes; unclassified (2 sources) Other specified postprocedural states; Translations: [S/P lumbar laminectomy] Onset: 08-10-2024 Episodic Residual codes; unclassified (1 source) Left against medical advice; Translations: [Procedure and treatment not carried out because of patient's decision for other reasons] 12-02-2024 Episodic Respiratory failure; insufficiency; arrest (adult) (1 source) Chronic hypoxemic respiratory failure; Translations: [Chronic respiratory failure with hypoxia] 10-26-2024 Chronic Spondylosis; intervertebral disc disorders; other back problems (13 sources) Lumbar spondylosis; Translations: [Spondylosis without myelopathy or radiculopathy, lumbar region] Onset: 10-26-2023 09-23-2023 Chronic Substance-related disorders (20 sources) Tobacco user; Translations: [Nicotine dependence, unspecified, uncomplicated] Onset: 08-20-2023 08-20-2023 Chronic Unclassified (1 source) APPOINTMENT CANCELLED 05-11-2024 Unclassified (1 source) Established Patient Onset: 06-05-2024 Unclassified (1 source) Low back pain, unspecified back pain laterality, unspecified chronicity, unspecified whether sciatica present; Translations: [Low back pain, unspecified back pain laterality, unspecified chronicity, unspecified whether sciatica present] Onset: 04-06-2024 Past or Other Problems Problem Classification Problem Date Documented Date Episodic/Chronic Fluid and electrolyte disorders (20 sources) Hyponatremia; Translations: [Hypo-osmolality and hyponatremia] Onset: 12-01-2023 12-01-2023 Episodic Genitourinary symptoms and ill-defined conditions (2 sources) Abnormal urine; Translations: [Other abnormal findings in urine] Onset: 07-14-2024 07-14-2024 Episodic Other lower respiratory disease (20 sources) Wheezing; Translations: [Wheezing] Onset: 08-20-2023 08-20-2023 Episodic Other lower respiratory disease (20 sources) Multiple nodules of lung; Translations: [Other nonspecific abnormal finding of lung field] Onset: 11-11-2023 11-11-2023 Episodic Other lower respiratory disease (1 source) Other nonspecific abnormal finding of lung field; Translations: [Lung nodules] Onset: 11-11-2023 Episodic Other screening for suspected conditions (not mental disorders or infectious disease) (20 sources) Raised cardiac enzyme or marker; Translations: [Other specified abnormal findings of blood chemistry] Onset: 12-01-2023 12-01-2023 Episodic Residual codes; unclassified (19 sources) Tobacco user; Translations: [Tobacco use] Onset: 07-14-2024 04-23-2019 Episodic Residual codes; unclassified (5 sources) History of lumbar laminectomy; Translations: [Other specified postprocedural states] Onset: 09-12-2024 08-10-2024 Episodic Spondylosis; intervertebral disc disorders; other back problems (20 sources) Chronic low back pain; Translations: [Lumbago with sciatica, unspecified side] Onset: 10-26-2023 09-23-2023 Episodic Results Test Name Value Interpretation Reference Range Facility Telephone Encounteron 2024 [employer]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 Normal [facility] CBC WITH DIFFERENTIALon 12-18 Basophils (Bld) [#/Vol] 0.10 10*3/uL Normal 0.00-0.20 [facility] Comment on above: Performed By: #### C BCDSAT ####[facility] [id number] [place], [place], Basophils/100 WBC (Bld) 1.3 % Normal <=1.9 [facility] Comment on above: Performed By: #### C VIKIDSAT ####[facility] [id number] [place] [address], Eosinophils (Bld) [#/Vol] 0.07 10*3/uL Normal 0.00-0.70 [facility] Comment on above: Performed By: #### C BCDSAT ####[facility] [id number] [place] [address], Eosinophils/100 WBC (Bld) 1.0 % Normal 0.1-4.0 [facility] Comment on above: Performed By: #### C VIKIDSAT ####[facility] [id number] [place] [address], Erythrocyte distribution width (RBC) [Ratio] 13.9 % Normal 11.5-14.5 [facility] Comment on above: Performed By: #### C BCDSAT ####[facility] [id number] [place], [place], Hematocrit (Bld) [Volume fraction] 41.4 % Normal 41.0-53.0 [facility] Comment on above: Performed By: #### C BCDSAT ####[facility] [id number] [place] [address], Hemoglobin (Bld) [Mass/Vol] 14.5 g/dL Normal 13.9-16.3 [facility] Comment on above: Performed By: #### C BCDSAT ####[facility] [id number] [place] [address], Lymphocytes (Bld) [#/Vol] 2.04 10*3/uL Normal 1.00-4.80 [facility] Comment on above: Performed By: #### C BCDSAT ####[facility] [id number] [place], [place], Lymphocytes/100 WBC (Bld) 26.5 % Normal 24.0-44.0 [facility] Comment on above: Performed By: #### C BCDSAT ####[facility] [id number] [place], [place], MCH (RBC) [Entitic mass] 30.3 pg Normal 26.0-34.0 [facility] Comment on above: Performed By: #### C BCDSAT ####[facility] [id number] [place], [place], MCHC (RBC) [Mass/Vol] 35.1 g/dL Normal 32.0-35.9 [facility] Comment on above: Performed By: #### C BCDSAT ####[facility] [id number] [place], [place], MCV (RBC) [Entitic vol] 87 fL Normal 80-100 [facility] Comment on above: Performed By: #### C BCDSAT ####[facility] [id number] [place], [place], Monocytes (Bld) [#/Vol] 0.73 10*3/uL Normal 0.20-1.00 [facility] Comment on above: Performed By: #### C BCDSAT ####[facility] [id number] [place], [place], Monocytes/100 WBC (Bld) 9.5 % Normal 2.0-11.0 [facility] Comment on above: Performed By: #### C BCDSAT ####[facility] [id number] [place], [place], Neutrophils (Bld) [#/Vol] 4.73 10*3/uL Normal 1.50-8.00 [facility] Comment on above: Performed By: #### C BCDSAT ####[facility] [id number] [place], [place], Neutrophils/100 WBC (Bld) 61.7 % Normal 31.0-76.0 [facility] Comment on above: Performed By: #### Cosmo JOSEPHAT ####[facility] [id number] [place], [place], Platelet mean volume (Bld) [Entitic vol] 7.0 fL Low 7.5-11.2 [facility] Comment on above: Performed By: #### Cosmo JOSEPHAT ####[facility] [id number] [place], [place], Platelets (Bld) [#/Vol] 323 10*3/uL Normal 150-400 [facility] Comment on above: Performed By: #### Cosmo JOSEPHAT ####[facility] [id number] [place], [place], RBC (Bld) [#/Vol] 4.79 10*6/uL Normal 4.50-5.90 [facility] Comment on above: Performed By: #### Cosmo JOSEPHAT ####[facility] PATH[facility] [id number] [place] [address], WBC (Bld) [#/Vol] 7.7 10*3/uL Normal 4.5-11.5 [facility] Comment on above: Performed By: #### Cosmo JOSEPHAT ####[facility] [id number] [place], [place], IMMUNOGLOBULIN Janusz IGE 156.3 IU/mL Normal <158.0 [facility] Comment on above: Performed By: #### I GE #### [facility] [address] [place] [address], INHALANT ALLERGEN PANELon A. alternata IgE Qn (S) 0.25 kU/L [facility] A. alternata IgE RAST class (S) 0 Class [facility] A. fumigatus IgE Qn (S) kU/L kU/L [facility] A. fumigatus IgE RAST class (S) 0 Class [facility] Ghanaian house dust mite IgE Qn (S) kU/L kU/L [facility] Ghanaian house dust mite IgE RAST class (S) 0 Class [facility] Boxelder IgE Qn (S) kU/L kU/L [facility] Boxelder IgE RAST class (S) 0 Class [facility] Cat dander IgE Qn (S) kU/L kU/L [facility] Cat dander IgE RAST class (S) 0 Class [facility] Cockroach IgE Qn (S) 0.14 kU/L [facility] Cockroach IgE RAST class (S) 0 Class [facility] Common Ragweed 0 Class [facility] Common Ragweed IgE Qn (S) kU/L kU/L [facility] Common Ragweed IgE RAST class (S) kU/L kU/L [facility] Dog dander IgE Qn (S) kU/L kU/L [facility] Dog dander IgE RAST class (S) 0 Class [facility] Setomelanomma rostrata IgE Qn (S) kU/L kU/L [facility] Setomelanomma rostrata IgE RAST class (S) 0 Class [facility] Raul Grass 0 Class [facility] Raul IgE Qn (S) kU/L kU/L [facility] [place] IgE RAST class (S) 0 Class [facility] IgE (kU/L) Interp.: <0.35 Class 0 Below Detect. 0.35 - 0.69 Class 1 Low 0.70 - 3.49 Class 2 Moderate 3.50 - 17.49 Class 3 High 17.50- 52.49 Class 4 Very High 52.50- 99.99 Class 5 Very High >=100 Class 6 Very High [facility] ALTERNARIA ALTERNATA 0.25 kU/L Normal [facility] Comment on above: Order Comment: [place] ignacio troponin can result from acute myocardial infarction (coronary etiology) or myocardial injury (non-coronary etiology) - always consider both. Interval test times for ruling out acute coronary syndrome (ACS) are 2 hours. All results are reported in whole numbers representing ng/L. Results obtained by different labs or methods are not comparable. For ruling out ACS, lab values are always used in conjunction with clinical risk assessment (e.g., HEART score*). Interpreting initial value in ruling out ACS Less than 5 ng/L - below lower limit of quantification - essentially rules out ACS if chest pain began more than 3 hours prior to test and assessed risk is low. 5 - 49 ng/L - indeterminate - consider repeat value in 2 hours depending on risk assessment. 50 ng/L or greater - concern for ACS or myocardial injury. Interpreting delta values in ruling out ACS. Always compare to initial value obtained: Absolute change (rise or fall) of less than 5 ng/L - essentially rules out ACS if assessed clinical risk is low. Absolute change (rise or fall) of 5 - 19 ng/L - indeterminate - consider another repeat value in 2 hours depending on assessed clinical risk. Absolute change (rise or fall) of 20 ng/L or greater - concern for ACS or myocardial injury. Any absolute value of 50 ng/L or greater - concern for ACS or myocardial injury. *When using hsTnI to calculate the HEART score, use the 99% Upper Reference Limit of 15 ng/L as the normal limit (i.e. <=15 ng/L = 0 points, 16-45 ng/L = 1 point, >45 ng/L = 2 points). Disposition Intermediate hsTnI values DO NOT mandate admission to a cardiology or telemetry unit. They need to be interpreted within the clinical context using provider judgement. Performed By: #### H STRP #### [facility] [address] [place] [address], [id number] ALTERNARIA ALTERNATA CLASS 0 Class Normal [facility] Comment on above: Order Comment: [place] ignacio troponin can result from acute myocardial infarction (coronary etiology) or myocardial injury (non-coronary etiology) - always consider both. Interval test times for ruling out acute coronary syndrome (ACS) are 2 hours. All results are reported in whole numbers representing ng/L. Results obtained by different labs or methods are not comparable. For ruling out ACS, lab values are always used in conjunction with clinical risk assessment (e.g., HEART score*). Interpreting initial value in ruling out ACS Less than 5 ng/L - below lower limit of quantification - essentially rules out ACS if chest pain began more than 3 hours prior to test and assessed risk is low. 5 - 49 ng/L - indeterminate - consider repeat value in 2 hours depending on risk assessment. 50 ng/L or greater - concern for ACS or myocardial injury. Interpreting delta values in ruling out ACS. Always compare to initial value obtained: Absolute change (rise or fall) of less than 5 ng/L - essentially rules out ACS if assessed clinical risk is low. Absolute change (rise or fall) of 5 - 19 ng/L - indeterminate - consider another repeat value in 2 hours depending on assessed clinical risk. Absolute change (rise or fall) of 20 ng/L or greater - concern for ACS or myocardial injury. Any absolute value of 50 ng/L or greater - concern for ACS or myocardial injury. *When using hsTnI to calculate the HEART score, use the 99% Upper Reference Limit of 15 ng/L as the normal limit (i.e. <=15 ng/L = 0 points, 16-45 ng/L = 1 point, >45 ng/L = 2 points). Disposition Intermediate hsTnI values DO NOT mandate admission to a cardiology or telemetry unit. They need to be interpreted within the clinical context using provider judgement. Performed By: #### H STRP #### [facility] [address] [place] [address], [id number] ASPERGILLUS FUMIGATUS < 0.10 Normal [facility] Comment on above: Order Comment: [place] ignacio troponin can result from acute myocardial infarction (coronary etiology) or myocardial injury (non-coronary etiology) - always consider both. Interval test times for ruling out acute coronary syndrome (ACS) are 2 hours. All results are reported in whole numbers representing ng/L. Results obtained by different labs or methods are not comparable. For ruling out ACS, lab values are always used in conjunction with clinical risk assessment (e.g., HEART score*). Interpreting initial value in ruling out ACS Less than 5 ng/L - below lower limit of quantification - essentially rules out ACS if chest pain began more than 3 hours prior to test and assessed risk is low. 5 - 49 ng/L - indeterminate - consider repeat value in 2 hours depending on risk assessment. 50 ng/L or greater - concern for ACS or myocardial injury. Interpreting delta values in ruling out ACS. Always compare to initial value obtained: Absolute change (rise or fall) of less than 5 ng/L - essentially rules out ACS if assessed clinical risk is low. Absolute change (rise or fall) of 5 - 19 ng/L - indeterminate - consider another repeat value in 2 hours depending on assessed clinical risk. Absolute change (rise or fall) of 20 ng/L or greater - concern for ACS or myocardial injury. Any absolute value of 50 ng/L or greater - concern for ACS or myocardial injury. *When using hsTnI to calculate the HEART score, use the 99% Upper Reference Limit of 15 ng/L as the normal limit (i.e. <=15 ng/L = 0 points, 16-45 ng/L = 1 point, >45 ng/L = 2 points). Disposition Intermediate hsTnI values DO NOT mandate admission to a cardiology or telemetry unit. They need to be interpreted within the clinical context using provider judgement. Performed By: #### H STRP #### [facility] [address] [place], [id number] ASPERGILLUS FUMIGATUS CLASS 0 Class Normal [facility] Comment on above: Order Comment: [place] ign[place] troponin can result from acute myocardial infarction (coronary etiology) or myocardial injury (non-coronary etiology) - always consider both. Interval test times for ruling out acute coronary syndrome (ACS) are 2 hours. All results are reported in whole numbers representing ng/L. Results obtained by different labs or methods are not comparable. For ruling out ACS, lab values are always used in conjunction with clinical risk assessment (e.g., HEART score*). Interpreting initial value in ruling out ACS Less than 5 ng/L - below lower limit of quantification - essentially rules out ACS if chest pain began more than 3 hours prior to test and assessed risk is low. 5 - 49 ng/L - indeterminate - consider repeat value in 2 hours depending on risk assessment. 50 ng/L or greater - concern for ACS or myocardial injury. Interpreting delta values in ruling out ACS. Always compare to initial value obtained: Absolute change (rise or fall) of less than 5 ng/L - essentially rules out ACS if assessed clinical risk is low. Absolute change (rise or fall) of 5 - 19 ng/L - indeterminate - consider another repeat value in 2 hours depending on assessed clinical risk. Absolute change (rise or fall) of 20 ng/L or greater - concern for ACS or myocardial injury. Any absolute value of 50 ng/L or greater - concern for ACS or myocardial injury. *When using hsTnI to calculate the HEART score, use the 99% Upper Reference Limit of 15 ng/L as the normal limit (i.e. <=15 ng/L = 0 points, 16-45 ng/L = 1 point, >45 ng/L = 2 points). Disposition Intermediate hsTnI values DO NOT mandate admission to a cardiology or telemetry unit. They need to be interpreted within the clinical context using provider judgement. Performed By: #### H STRP #### [facility] [address] [place] [address], [id number] BOX ELDER < 0.10 Normal [facility] Comment on above: Order Comment: [place] ign[place] troponin can result from acute myocardial infarction (coronary etiology) or myocardial injury (non-coronary etiology) - always consider both. Interval test times for ruling out acute coronary syndrome (ACS) are 2 hours. All results are reported in whole numbers representing ng/L. Results obtained by different labs or methods are not comparable. For ruling out ACS, lab values are always used in conjunction with clinical risk assessment (e.g., HEART score*). Interpreting initial value in ruling out ACS Less than 5 ng/L - below lower limit of quantification - essentially rules out ACS if chest pain began more than 3 hours prior to test and assessed risk is low. 5 - 49 ng/L - indeterminate - consider repeat value in 2 hours depending on risk assessment. 50 ng/L or greater - concern for ACS or myocardial injury. Interpreting delta values in ruling out ACS. Always compare to initial value obtained: Absolute change (rise or fall) of less than 5 ng/L - essentially rules out ACS if assessed clinical risk is low. Absolute change (rise or fall) of 5 - 19 ng/L - indeterminate - consider another repeat value in 2 hours depending on assessed clinical risk. Absolute change (rise or fall) of 20 ng/L or greater - concern for ACS or myocardial injury. Any absolute value of 50 ng/L or greater - concern for ACS or myocardial injury. *When using hsTnI to calculate the HEART score, use the 99% Upper Reference Limit of 15 ng/L as the normal limit (i.e. <=15 ng/L = 0 points, 16-45 ng/L = 1 point, >45 ng/L = 2 points). Disposition Intermediate hsTnI values DO NOT mandate admission to a cardiology or telemetry unit. They need to be interpreted within the clinical context using provider judgement. Performed By: #### H STRP #### [facility] [address] [place] [address], [id number] BOX ELDER CLASS 0 Class Normal [facility] Comment on above: Order Comment: [place] ign[place] troponin can result from acute myocardial infarction (coronary etiology) or myocardial injury (non-coronary etiology) - always consider both. Interval test times for ruling out acute coronary syndrome (ACS) are 2 hours. All results are reported in whole numbers representing ng/L. Results obtained by different labs or methods are not comparable. For ruling out ACS, lab values are always used in conjunction with clinical risk assessment (e.g., HEART score*). Interpreting initial value in ruling out ACS Less than 5 ng/L - below lower limit of quantification - essentially rules out ACS if chest pain began more than 3 hours prior to test and assessed risk is low. 5 - 49 ng/L - indeterminate - consider repeat value in 2 hours depending on risk assessment. 50 ng/L or greater - concern for ACS or myocardial injury. Interpreting delta values in ruling out ACS. Always compare to initial value obtained: Absolute change (rise or fall) of less than 5 ng/L - essentially rules out ACS if assessed clinical risk is low. Absolute change (rise or fall) of 5 - 19 ng/L - indeterminate - consider another repeat value in 2 hours depending on assessed clinical risk. Absolute change (rise or fall) of 20 ng/L or greater - concern for ACS or myocardial injury. Any absolute value of 50 ng/L or greater - concern for ACS or myocardial injury. *When using hsTnI to calculate the HEART score, use the 99% Upper Reference Limit of 15 ng/L as the normal limit (i.e. <=15 ng/L = 0 points, 16-45 ng/L = 1 point, >45 ng/L = 2 points). Disposition Intermediate hsTnI values DO NOT mandate admission to a cardiology or telemetry unit. They need to be interpreted within the clinical context using provider judgement. Performed By: #### H STRP #### [facility] [address] [place], [id number] CAT DANDER < 0.10 Normal [facility] Comment on above: Order Comment: [place] ign[place] troponin can result from acute myocardial infarction (coronary etiology) or myocardial injury (non-coronary etiology) - always consider both. Interval test times for ruling out acute coronary syndrome (ACS) are 2 hours. All results are reported in whole numbers representing ng/L. Results obtained by different labs or methods are not comparable. For ruling out ACS, lab values are always used in conjunction with clinical risk assessment (e.g., HEART score*). Interpreting initial value in ruling out ACS Less than 5 ng/L - below lower limit of quantification - essentially rules out ACS if chest pain began more than 3 hours prior to test and assessed risk is low. 5 - 49 ng/L - indeterminate - consider repeat value in 2 hours depending on risk assessment. 50 ng/L or greater - concern for ACS or myocardial injury. Interpreting delta values in ruling out ACS. Always compare to initial value obtained: Absolute change (rise or fall) of less than 5 ng/L - essentially rules out ACS if assessed clinical risk is low. Absolute change (rise or fall) of 5 - 19 ng/L - indeterminate - consider another repeat value in 2 hours depending on assessed clinical risk. Absolute change (rise or fall) of 20 ng/L or greater - concern for ACS or myocardial injury. Any absolute value of 50 ng/L or greater - concern for ACS or myocardial injury. *When using hsTnI to calculate the HEART score, use the 99% Upper Reference Limit of 15 ng/L as the normal limit (i.e. <=15 ng/L = 0 points, 16-45 ng/L = 1 point, >45 ng/L = 2 points). Disposition Intermediate hsTnI values DO NOT mandate admission to a cardiology or telemetry unit. They need to be interpreted within the clinical context using provider judgement. Performed By: #### H STRP #### [facility] [address] [place] [address], [id number] CAT DANDER CLASS 0 Class Normal [facility] Comment on above: Order Comment: [place] troponin can result from acute myocardial infarction (coronary etiology) or myocardial injury (non-coronary etiology) - always consider both. Interval test times for ruling out acute coronary syndrome (ACS) are 2 hours. All results are reported in whole numbers representing ng/L. Results obtained by different labs or methods are not comparable. For ruling out ACS, lab values are always used in conjunction with clinical risk assessment (e.g., HEART score*). Interpreting initial value in ruling out ACS Less than 5 ng/L - below lower limit of quantification - essentially rules out ACS if chest pain began more than 3 hours prior to test and assessed risk is low. 5 - 49 ng/L - indeterminate - consider repeat value in 2 hours depending on risk assessment. 50 ng/L or greater - concern for ACS or myocardial injury. Interpreting delta values in ruling out ACS. Always compare to initial value obtained: Absolute change (rise or fall) of less than 5 ng/L - essentially rules out ACS if assessed clinical risk is low. Absolute change (rise or fall) of 5 - 19 ng/L - indeterminate - consider another repeat value in 2 hours depending on assessed clinical risk. Absolute change (rise or fall) of 20 ng/L or greater - concern for ACS or myocardial injury. Any absolute value of 50 ng/L or greater - concern for ACS or myocardial injury. *When using hsTnI to calculate the HEART score, use the 99% Upper Reference Limit of 15 ng/L as the normal limit (i.e. <=15 ng/L = 0 points, 16-45 ng/L = 1 point, >45 ng/L = 2 points). Disposition Intermediate hsTnI values DO NOT mandate admission to a cardiology or telemetry unit. They need to be interpreted within the clinical context using provider judgement. Performed By: #### H STRP #### [facility] [address] [place] [address], [id number] COCKROACH 0.14 kU/L Normal [facility] Comment on above: Order Comment: [place] troponin can result from acute myocardial infarction (coronary etiology) or myocardial injury (non-coronary etiology) - always consider both. Interval test times for ruling out acute coronary syndrome (ACS) are 2 hours. All results are reported in whole numbers representing ng/L. Results obtained by different labs or methods are not comparable. For ruling out ACS, lab values are always used in conjunction with clinical risk assessment (e.g., HEART score*). Interpreting initial value in ruling out ACS Less than 5 ng/L - below lower limit of quantification - essentially rules out ACS if chest pain began more than 3 hours prior to test and assessed risk is low. 5 - 49 ng/L - indeterminate - consider repeat value in 2 hours depending on risk assessment. 50 ng/L or greater - concern for ACS or myocardial injury. Interpreting delta values in ruling out ACS. Always compare to initial value obtained: Absolute change (rise or fall) of less than 5 ng/L - essentially rules out ACS if assessed clinical risk is low. Absolute change (rise or fall) of 5 - 19 ng/L - indeterminate - consider another repeat value in 2 hours depending on assessed clinical risk. Absolute change (rise or fall) of 20 ng/L or greater - concern for ACS or myocardial injury. Any absolute value of 50 ng/L or greater - concern for ACS or myocardial injury. *When using hsTnI to calculate the HEART score, use the 99% Upper Reference Limit of 15 ng/L as the normal limit (i.e. <=15 ng/L = 0 points, 16-45 ng/L = 1 point, >45 ng/L = 2 points). Disposition Intermediate hsTnI values DO NOT mandate admission to a cardiology or telemetry unit. They need to be interpreted within the clinical context using provider judgement. Performed By: #### H STRP #### [facility] [address] [place] [address], [id number] COCKROACH CLASS 0 Class Normal [facility] Comment on above: Order Comment: [place] troponin can result from acute myocardial infarction (coronary etiology) or myocardial injury (non-coronary etiology) - always consider both. Interval test times for ruling out acute coronary syndrome (ACS) are 2 hours. All results are reported in whole numbers representing ng/L. Results obtained by different labs or methods are not comparable. For ruling out ACS, lab values are always used in conjunction with clinical risk assessment (e.g., HEART score*). Interpreting initial value in ruling out ACS Less than 5 ng/L - below lower limit of quantification - essentially rules out ACS if chest pain began more than 3 hours prior to test and assessed risk is low. 5 - 49 ng/L - indeterminate - consider repeat value in 2 hours depending on risk assessment. 50 ng/L or greater - concern for ACS or myocardial injury. Interpreting delta values in ruling out ACS. Always compare to initial value obtained: Absolute change (rise or fall) of less than 5 ng/L - essentially rules out ACS if assessed clinical risk is low. Absolute change (rise or fall) of 5 - 19 ng/L - indeterminate - consider another repeat value in 2 hours depending on assessed clinical risk. Absolute change (rise or fall) of 20 ng/L or greater - concern for ACS or myocardial injury. Any absolute value of 50 ng/L or greater - concern for ACS or myocardial injury. *When using hsTnI to calculate the HEART score, use the 99% Upper Reference Limit of 15 ng/L as the normal limit (i.e. <=15 ng/L = 0 points, 16-45 ng/L = 1 point, >45 ng/L = 2 points). Disposition Intermediate hsTnI values DO NOT mandate admission to a cardiology or telemetry unit. They need to be interpreted within the clinical context using provider judgement. Performed By: #### H STRP #### [facility] [address] [place] [address], [phone] COMMON RAGWEED < 0.10 Normal [facility] Comment on above: Order Comment: [place] troponin can result from acute myocardial infarction (coronary etiology) or myocardial injury (non-coronary etiology) - always consider both. Interval test times for ruling out acute coronary syndrome (ACS) are 2 hours. All results are reported in whole numbers representing ng/L. Results obtained by different labs or methods are not comparable. For ruling out ACS, lab values are always used in conjunction with clinical risk assessment (e.g., HEART score*). Interpreting initial value in ruling out ACS Less than 5 ng/L - below lower limit of quantification - essentially rules out ACS if chest pain began more than 3 hours prior to test and assessed risk is low. 5 - 49 ng/L - indeterminate - consider repeat value in 2 hours depending on risk assessment. 50 ng/L or greater - concern for ACS or myocardial injury. Interpreting delta values in ruling out ACS. Always compare to initial value obtained: Absolute change (rise or fall) of less than 5 ng/L - essentially rules out ACS if assessed clinical risk is low. Absolute change (rise or fall) of 5 - 19 ng/L - indeterminate - consider another repeat value in 2 hours depending on assessed clinical risk. Absolute change (rise or fall) of 20 ng/L or greater - concern for ACS or myocardial injury. Any absolute value of 50 ng/L or greater - concern for ACS or myocardial injury. *When using hsTnI to calculate the HEART score, use the 99% Upper Reference Limit of 15 ng/L as the normal limit (i.e. <=15 ng/L = 0 points, 16-45 ng/L = 1 point, >45 ng/L = 2 points). Disposition Intermediate hsTnI values DO NOT mandate admission to a cardiology or telemetry unit. They need to be interpreted within the clinical context using provider judgement. Performed By: #### H STRP #### [facility] [address] [place] [address], [phone] COMMON RAGWEED CLASS 0 Class Normal [facility] Comment on above: Order Comment: [place] troponin can result from acute myocardial infarction (coronary etiology) or myocardial injury (non-coronary etiology) - always consider both. Interval test times for ruling out acute coronary syndrome (ACS) are 2 hours. All results are reported in whole numbers representing ng/L. Results obtained by different labs or methods are not comparable. For ruling out ACS, lab values are always used in conjunction with clinical risk assessment (e.g., HEART score*). Interpreting initial value in ruling out ACS Less than 5 ng/L - below lower limit of quantification - essentially rules out ACS if chest pain began more than 3 hours prior to test and assessed risk is low. 5 - 49 ng/L - indeterminate - consider repeat value in 2 hours depending on risk assessment. 50 ng/L or greater - concern for ACS or myocardial injury. Interpreting delta values in ruling out ACS. Always compare to initial value obtained: Absolute change (rise or fall) of less than 5 ng/L - essentially rules out ACS if assessed clinical risk is low. Absolute change (rise or fall) of 5 - 19 ng/L - indeterminate - consider another repeat value in 2 hours depending on assessed clinical risk. Absolute change (rise or fall) of 20 ng/L or greater - concern for ACS or myocardial injury. Any absolute value of 50 ng/L or greater - concern for ACS or myocardial injury. *When using hsTnI to calculate the HEART score, use the 99% Upper Reference Limit of 15 ng/L as the normal limit (i.e. <=15 ng/L = 0 points, 16-45 ng/L = 1 point, >45 ng/L = 2 points). Disposition Intermediate hsTnI values DO NOT mandate admission to a cardiology or telemetry unit. They need to be interpreted within the clinical context using provider judgement. Performed By: #### H STRP #### [facility] [address], [place], D. FARINAE (DUST MITE) CLASS 0 Class Normal [facility] Comment on above: Order Comment: [place] troponin can result from acute myocardial infarction (coronary etiology) or myocardial injury (non-coronary etiology) - always consider both. Interval test times for ruling out acute coronary syndrome (ACS) are 2 hours. All results are reported in whole numbers representing ng/L. Results obtained by different labs or methods are not comparable. For ruling out ACS, lab values are always used in conjunction with clinical risk assessment (e.g., HEART score*). Interpreting initial value in ruling out ACS Less than 5 ng/L - below lower limit of quantification - essentially rules out ACS if chest pain began more than 3 hours prior to test and assessed risk is low. 5 - 49 ng/L - indeterminate - consider repeat value in 2 hours depending on risk assessment. 50 ng/L or greater - concern for ACS or myocardial injury. Interpreting delta values in ruling out ACS. Always compare to initial value obtained: Absolute change (rise or fall) of less than 5 ng/L - essentially rules out ACS if assessed clinical risk is low. Absolute change (rise or fall) of 5 - 19 ng/L - indeterminate - consider another repeat value in 2 hours depending on assessed clinical risk. Absolute change (rise or fall) of 20 ng/L or greater - concern for ACS or myocardial injury. Any absolute value of 50 ng/L or greater - concern for ACS or myocardial injury. *When using hsTnI to calculate the HEART score, use the 99% Upper Reference Limit of 15 ng/L as the normal limit (i.e. <=15 ng/L = 0 points, 16-45 ng/L = 1 point, >45 ng/L = 2 points). Disposition Intermediate hsTnI values DO NOT mandate admission to a cardiology or telemetry unit. They need to be interpreted within the clinical context using provider judgement. Performed By: #### H STRP #### [facility] [address], [place], D. FARINAE (HOUSE DUST MITE) < 0.10 Normal [facility] Comment on above: Order Comment: [place] troponin can result from acute myocardial infarction (coronary etiology) or myocardial injury (non-coronary etiology) - always consider both. Interval test times for ruling out acute coronary syndrome (ACS) are 2 hours. All results are reported in whole numbers representing ng/L. Results obtained by different labs or methods are not comparable. For ruling out ACS, lab values are always used in conjunction with clinical risk assessment (e.g., HEART score*). Interpreting initial value in ruling out ACS Less than 5 ng/L - below lower limit of quantification - essentially rules out ACS if chest pain began more than 3 hours prior to test and assessed risk is low. 5 - 49 ng/L - indeterminate - consider repeat value in 2 hours depending on risk assessment. 50 ng/L or greater - concern for ACS or myocardial injury. Interpreting delta values in ruling out ACS. Always compare to initial value obtained: Absolute change (rise or fall) of less than 5 ng/L - essentially rules out ACS if assessed clinical risk is low. Absolute change (rise or fall) of 5 - 19 ng/L - indeterminate - consider another repeat value in 2 hours depending on assessed clinical risk. Absolute change (rise or fall) of 20 ng/L or greater - concern for ACS or myocardial injury. Any absolute value of 50 ng/L or greater - concern for ACS or myocardial injury. *When using hsTnI to calculate the HEART score, use the 99% Upper Reference Limit of 15 ng/L as the normal limit (i.e. <=15 ng/L = 0 points, 16-45 ng/L = 1 point, >45 ng/L = 2 points). Disposition Intermediate hsTnI values DO NOT mandate admission to a cardiology or telemetry unit. They need to be interpreted within the clinical context using provider judgement. Performed By: #### H STRP #### [facility] [address] [place] [address], [phone] DOG DANDER < 0.10 Normal [facility] Comment on above: Order Comment: [place] troponin can result from acute myocardial infarction (coronary etiology) or myocardial injury (non-coronary etiology) - always consider both. Interval test times for ruling out acute coronary syndrome (ACS) are 2 hours. All results are reported in whole numbers representing ng/L. Results obtained by different labs or methods are not comparable. For ruling out ACS, lab values are always used in conjunction with clinical risk assessment (e.g., HEART score*). Interpreting initial value in ruling out ACS Less than 5 ng/L - below lower limit of quantification - essentially rules out ACS if chest pain began more than 3 hours prior to test and assessed risk is low. 5 - 49 ng/L - indeterminate - consider repeat value in 2 hours depending on risk assessment. 50 ng/L or greater - concern for ACS or myocardial injury. Interpreting delta values in ruling out ACS. Always compare to initial value obtained: Absolute change (rise or fall) of less than 5 ng/L - essentially rules out ACS if assessed clinical risk is low. Absolute change (rise or fall) of 5 - 19 ng/L - indeterminate - consider another repeat value in 2 hours depending on assessed clinical risk. Absolute change (rise or fall) of 20 ng/L or greater - concern for ACS or myocardial injury. Any absolute value of 50 ng/L or greater - concern for ACS or myocardial injury. *When using hsTnI to calculate the HEART score, use the 99% Upper Reference Limit of 15 ng/L as the normal limit (i.e. <=15 ng/L = 0 points, 16-45 ng/L = 1 point, >45 ng/L = 2 points). Disposition Intermediate hsTnI values DO NOT mandate admission to a cardiology or telemetry unit. They need to be interpreted within the clinical context using provider judgement. Performed By: #### H STRP #### [facility] [address] [place] [address], [id number] DOG DANDER CLASS 0 Class Normal [facility] Comment on above: Order Comment: [place] troponin can result from acute myocardial infarction (coronary etiology) or myocardial injury (non-coronary etiology) - always consider both. Interval test times for ruling out acute coronary syndrome (ACS) are 2 hours. All results are reported in whole numbers representing ng/L. Results obtained by different labs or methods are not comparable. For ruling out ACS, lab values are always used in conjunction with clinical risk assessment (e.g., HEART score*). Interpreting initial value in ruling out ACS Less than 5 ng/L - below lower limit of quantification - essentially rules out ACS if chest pain began more than 3 hours prior to test and assessed risk is low. 5 - 49 ng/L - indeterminate - consider repeat value in 2 hours depending on risk assessment. 50 ng/L or greater - concern for ACS or myocardial injury. Interpreting delta values in ruling out ACS. Always compare to initial value obtained: Absolute change (rise or fall) of less than 5 ng/L - essentially rules out ACS if assessed clinical risk is low. Absolute change (rise or fall) of 5 - 19 ng/L - indeterminate - consider another repeat value in 2 hours depending on assessed clinical risk. Absolute change (rise or fall) of 20 ng/L or greater - concern for ACS or myocardial injury. Any absolute value of 50 ng/L or greater - concern for ACS or myocardial injury. *When using hsTnI to calculate the HEART score, use the 99% Upper Reference Limit of 15 ng/L as the normal limit (i.e. <=15 ng/L = 0 points, 16-45 ng/L = 1 point, >45 ng/L = 2 points). Disposition Intermediate hsTnI values DO NOT mandate admission to a cardiology or telemetry unit. They need to be interpreted within the clinical context using provider judgement. Performed By: #### H STRP #### [facility] [address] [place] [address], [phone] HELMINTHOSPORIUM HALODES < 0.10 Normal [facility] Comment on above: Order Comment: [place] ign[place] troponin can result from acute myocardial infarction (coronary etiology) or myocardial injury (non-coronary etiology) - always consider both. Interval test times for ruling out acute coronary syndrome (ACS) are 2 hours. All results are reported in whole numbers representing ng/L. Results obtained by different labs or methods are not comparable. For ruling out ACS, lab values are always used in conjunction with clinical risk assessment (e.g., HEART score*). Interpreting initial value in ruling out ACS Less than 5 ng/L - below lower limit of quantification - essentially rules out ACS if chest pain began more than 3 hours prior to test and assessed risk is low. 5 - 49 ng/L - indeterminate - consider repeat value in 2 hours depending on risk assessment. 50 ng/L or greater - concern for ACS or myocardial injury. Interpreting delta values in ruling out ACS. Always compare to initial value obtained: Absolute change (rise or fall) of less than 5 ng/L - essentially rules out ACS if assessed clinical risk is low. Absolute change (rise or fall) of 5 - 19 ng/L - indeterminate - consider another repeat value in 2 hours depending on assessed clinical risk. Absolute change (rise or fall) of 20 ng/L or greater - concern for ACS or myocardial injury. Any absolute value of 50 ng/L or greater - concern for ACS or myocardial injury. *When using hsTnI to calculate the HEART score, use the 99% Upper Reference Limit of 15 ng/L as the normal limit (i.e. <=15 ng/L = 0 points, 16-45 ng/L = 1 point, >45 ng/L = 2 points). Disposition Intermediate hsTnI values DO NOT mandate admission to a cardiology or telemetry unit. They need to be interpreted within the clinical context using provider judgement. Performed By: #### H STRP #### [facility] [address] [place] [address], [phone] HELMINTHOSPORIUM HALODES CLASS 0 Class Normal [facility] Comment on above: Order Comment: [place] troponin can result from acute myocardial infarction (coronary etiology) or myocardial injury (non-coronary etiology) - always consider both. Interval test times for ruling out acute coronary syndrome (ACS) are 2 hours. All results are reported in whole numbers representing ng/L. Results obtained by different labs or methods are not comparable. For ruling out ACS, lab values are always used in conjunction with clinical risk assessment (e.g., HEART score*). Interpreting initial value in ruling out ACS Less than 5 ng/L - below lower limit of quantification - essentially rules out ACS if chest pain began more than 3 hours prior to test and assessed risk is low. 5 - 49 ng/L - indeterminate - consider repeat value in 2 hours depending on risk assessment. 50 ng/L or greater - concern for ACS or myocardial injury. Interpreting delta values in ruling out ACS. Always compare to initial value obtained: Absolute change (rise or fall) of less than 5 ng/L - essentially rules out ACS if assessed clinical risk is low. Absolute change (rise or fall) of 5 - 19 ng/L - indeterminate - consider another repeat value in 2 hours depending on assessed clinical risk. Absolute change (rise or fall) of 20 ng/L or greater - concern for ACS or myocardial injury. Any absolute value of 50 ng/L or greater - concern for ACS or myocardial injury. *When using hsTnI to calculate the HEART score, use the 99% Upper Reference Limit of 15 ng/L as the normal limit (i.e. <=15 ng/L = 0 points, 16-45 ng/L = 1 point, >45 ng/L = 2 points). Disposition Intermediate hsTnI values DO NOT mandate admission to a cardiology or telemetry unit. They need to be interpreted within the clinical context using provider judgement. Performed By: #### H STRP #### [facility] [address] [place], [phone] OAK < 0.10 Normal [facility] Comment on above: Order Comment: [place] troponin can result from acute myocardial infarction (coronary etiology) or myocardial injury (non-coronary etiology) - always consider both. Interval test times for ruling out acute coronary syndrome (ACS) are 2 hours. All results are reported in whole numbers representing ng/L. Results obtained by different labs or methods are not comparable. For ruling out ACS, lab values are always used in conjunction with clinical risk assessment (e.g., HEART score*). Interpreting initial value in ruling out ACS Less than 5 ng/L - below lower limit of quantification - essentially rules out ACS if chest pain began more than 3 hours prior to test and assessed risk is low. 5 - 49 ng/L - indeterminate - consider repeat value in 2 hours depending on risk assessment. 50 ng/L or greater - concern for ACS or myocardial injury. Interpreting delta values in ruling out ACS. Always compare to initial value obtained: Absolute change (rise or fall) of less than 5 ng/L - essentially rules out ACS if assessed clinical risk is low. Absolute change (rise or fall) of 5 - 19 ng/L - indeterminate - consider another repeat value in 2 hours depending on assessed clinical risk. Absolute change (rise or fall) of 20 ng/L or greater - concern for ACS or myocardial injury. Any absolute value of 50 ng/L or greater - concern for ACS or myocardial injury. *When using hsTnI to calculate the HEART score, use the 99% Upper Reference Limit of 15 ng/L as the normal limit (i.e. <=15 ng/L = 0 points, 16-45 ng/L = 1 point, >45 ng/L = 2 points). Disposition Intermediate hsTnI values DO NOT mandate admission to a cardiology or telemetry unit. They need to be interpreted within the clinical context using provider judgement. Performed By: #### H STRP #### [facility] [address] [place] [address], OAK CLASS 0 Class Normal [facility] Comment on above: Order Comment: [place] troponin can result from acute myocardial infarction (coronary etiology) or myocardial injury (non-coronary etiology) - always consider both. Interval test times for ruling out acute coronary syndrome (ACS) are 2 hours. All results are reported in whole numbers representing ng/L. Results obtained by different labs or methods are not comparable. For ruling out ACS, lab values are always used in conjunction with clinical risk assessment (e.g., HEART score*). Interpreting initial value in ruling out ACS Less than 5 ng/L - below lower limit of quantification - essentially rules out ACS if chest pain began more than 3 hours prior to test and assessed risk is low. 5 - 49 ng/L - indeterminate - consider repeat value in 2 hours depending on risk assessment. 50 ng/L or greater - concern for ACS or myocardial injury. Interpreting delta values in ruling out ACS. Always compare to initial value obtained: Absolute change (rise or fall) of less than 5 ng/L - essentially rules out ACS if assessed clinical risk is low. Absolute change (rise or fall) of 5 - 19 ng/L - indeterminate - consider another repeat value in 2 hours depending on assessed clinical risk. Absolute change (rise or fall) of 20 ng/L or greater - concern for ACS or myocardial injury. Any absolute value of 50 ng/L or greater - concern for ACS or myocardial injury. *When using hsTnI to calculate the HEART score, use the 99% Upper Reference Limit of 15 ng/L as the normal limit (i.e. <=15 ng/L = 0 points, 16-45 ng/L = 1 point, >45 ng/L = 2 points). Disposition Intermediate hsTnI values DO NOT mandate admission to a cardiology or telemetry unit. They need to be interpreted within the clinical context using provider judgement. Performed By: #### H STRP #### [facility] [address], [place], RAUL GRASS < 0.10 Normal [facility] Comment on above: Order Comment: [place] troponin can result from acute myocardial infarction (coronary etiology) or myocardial injury (non-coronary etiology) - always consider both. Interval test times for ruling out acute coronary syndrome (ACS) are 2 hours. All results are reported in whole numbers representing ng/L. Results obtained by different labs or methods are not comparable. For ruling out ACS, lab values are always used in conjunction with clinical risk assessment (e.g., HEART score*). Interpreting initial value in ruling out ACS Less than 5 ng/L - below lower limit of quantification - essentially rules out ACS if chest pain began more than 3 hours prior to test and assessed risk is low. 5 - 49 ng/L - indeterminate - consider repeat value in 2 hours depending on risk assessment. 50 ng/L or greater - concern for ACS or myocardial injury. Interpreting delta values in ruling out ACS. Always compare to initial value obtained: Absolute change (rise or fall) of less than 5 ng/L - essentially rules out ACS if assessed clinical risk is low. Absolute change (rise or fall) of 5 - 19 ng/L - indeterminate - consider another repeat value in 2 hours depending on assessed clinical risk. Absolute change (rise or fall) of 20 ng/L or greater - concern for ACS or myocardial injury. Any absolute value of 50 ng/L or greater - concern for ACS or myocardial injury. *When using hsTnI to calculate the HEART score, use the 99% Upper Reference Limit of 15 ng/L as the normal limit (i.e. <=15 ng/L = 0 points, 16-45 ng/L = 1 point, >45 ng/L = 2 points). Disposition Intermediate hsTnI values DO NOT mandate admission to a cardiology or telemetry unit. They need to be interpreted within the clinical context using provider judgement. Performed By: #### H STRP #### [facility] [address] [place] [address], [phone] RAUL JARRELL CLASS 0 Class Normal [facility] Comment on above: Order Comment: [place] troponin can result from acute myocardial infarction (coronary etiology) or myocardial injury (non-coronary etiology) - always consider both. Interval test times for ruling out acute coronary syndrome (ACS) are 2 hours. All results are reported in whole numbers representing ng/L. Results obtained by different labs or methods are not comparable. For ruling out ACS, lab values are always used in conjunction with clinical risk assessment (e.g., HEART score*). Interpreting initial value in ruling out ACS Less than 5 ng/L - below lower limit of quantification - essentially rules out ACS if chest pain began more than 3 hours prior to test and assessed risk is low. 5 - 49 ng/L - indeterminate - consider repeat value in 2 hours depending on risk assessment. 50 ng/L or greater - concern for ACS or myocardial injury. Interpreting delta values in ruling out ACS. Always compare to initial value obtained: Absolute change (rise or fall) of less than 5 ng/L - essentially rules out ACS if assessed clinical risk is low. Absolute change (rise or fall) of 5 - 19 ng/L - indeterminate - consider another repeat value in 2 hours depending on assessed clinical risk. Absolute change (rise or fall) of 20 ng/L or greater - concern for ACS or myocardial injury. Any absolute value of 50 ng/L or greater - concern for ACS or myocardial injury. *When using hsTnI to calculate the HEART score, use the 99% Upper Reference Limit of 15 ng/L as the normal limit (i.e. <=15 ng/L = 0 points, 16-45 ng/L = 1 point, >45 ng/L = 2 points). Disposition Intermediate hsTnI values DO NOT mandate admission to a cardiology or telemetry unit. They need to be interpreted within the clinical context using provider judgement. Performed By: #### H STRP #### [facility] [address] [place] [address], [phone] Laboratory - Hematology and Cell countson 01-08-2025 Basophils (Bld) [#/Vol] 0.1 10*3/uL 0.00 - 0.20 K/uL [facility] Basophils/100 WBC (Bld) 1.3 % NINF - 1.9 % [facility] Eosinophils (Bld) [#/Vol] 0.07 10*3/uL 0.00 - 0.70 K/uL [facility] Eosinophils/100 WBC (Bld) 1 % 0.1 - 4.0 % [facility] Erythrocyte distribution width (RBC) [Ratio] 13.9 % 11.5 - 14.5 % [facility] Hematocrit (Bld) [Volume fraction] 41.4 % 41.0 - 53.0 % [facility] Hemoglobin (Bld) [Mass/Vol] 14.5 g/dL 13.9 - 16.3 g/dL [facility] Lymphocytes (Bld) [#/Vol] 2.04 10*3/uL 1.00 - 4.80 K/uL [facility] Lymphocytes/100 WBC (Bld) 26.5 % 24.0 - 44.0 % [facility] MCH (RBC) [Entitic mass] 30.3 pg 26.0 - 34.0 pg [facility] MCHC (RBC) [Mass/Vol] 35.1 g/dL 32.0 - 35.9 g/dL [facility] MCV (RBC) [Entitic vol] 87 fL 80 - 100 fL [facility] Monocytes (Bld) [#/Vol] 0.73 10*3/uL 0.20 - 1.00 K/uL [facility] Monocytes/100 WBC (Bld) 9.5 % 2.0 - 11.0 % [facility] Neutrophils (Bld) [#/Vol] 4.73 10*3/uL 1.50 - 8.00 K/uL [facility] Neutrophils/100 WBC (Bld) 61.7 % 31.0 - 76.0 % [facility] Platelet mean volume (Bld) [Entitic vol] 7 fL Low 7.5 - 11.2 fL [facility] Platelets (Bld) [#/Vol] 323 10*3/uL 150 - 400 K/uL [facility] RBC (Bld) [#/Vol] 4.79 10*6/uL [facility] WBC (Bld) [#/Vol] 7.7 10*3/uL 4.5 - 11.5 K/uL [facility] Laboratory - Serology - non- microon 01-08-2025 Immune complex IgE Qn 156.3 NINF [facility] No Panel Informationon 01-08 Interpretation and review of laboratory results Normal [facility] Interpretation and review of laboratory results Abnormal [facility] Progress Noteson 01-08-2025 Drafter Apprentice Authentication Interface Message Text Division of Pulmonary, Critical Care AND Sleep Medicine Referring provider: Dhiraj Ron MD Reason for referral: COPD 64 year old male with phx of CVA, asthma, COPD Patient presents today for new patient evaluation. Course: Presents today to establish care and for hospital follow up Accompanied today by his who assists in HPI Was admitted to the hospital for SOB 10/24/24 treated as AECOPD - Discharged with 2L oxygen (new) - Changed to Anoro inhaler - Treated with moxifloxacin and prednisone Prior to this hospital course he was seen by [facility] pulmonary in October and then by a private practice slot floorman in [place] (no OV notes available) Per patient and he was struggling on previous breathing regimen and then when he caught a cold from his he took a turn for the worst and that's when he was hospitalized. Since changing to anoro he has really felt a huge difference in his breathing and is very happy with the results - Has been able to come off of his oxygen for the past 2-3 weeks keeping home pulse ox checks >95% - Does a preventative duoneb treatment every morning Current symptoms: Cough: - Sputum: - Wheezing: - Dyspnea: + Current therapies: TIFFANIE: albuterol PRN ICS: - LABA/LAMA: anoro daily Nebulizer: albuterol PRN, duoneb PRN Asthma history: Asthma diagnosis: question Hospitalizations due to asthma: - Family history of asthma: + son and + sister Allergies/rhinitis/ec zema history: COPD history: COPD dx: - Tobacco history Start age: 26 Quit age: - PPD: currently: 1ppd / max: 2 ppd Exacerbation history: Have you had any exacerbations in the past 3-6 months? Yes; 10/24/24 ATB use: moxifloxacin Steroid use: prednisone COPD ASSESSMENT TOOLS Mild obstruction: FEV1 z-score -1.65 to -2.5 Moderate obstruction: FEV1 z-score -2.52 to -4.0 Severe obstruction: FEV1 z-score <-4.1 Labs: Abs Eosin <0.03 -- -- -- 0.07 <0.03 Modified [employer] [place] (mMRC) dyspnea scale Grade Description of breathlessness 0 I only get breathless with strenuous exercise 1 I get short of breath when hurrying on level ground or walking up a slight hill 2 On level ground, I walk slower than people of the same age because of breathlessness, or have to stop for breath when walking at my own pace 3 I stop for breath after walking about 100 yards or after a few minutes on level ground 4 I am too breathless to leave the house or I am breathless when dressing SCORE: [3] COPD ASSESSMENT TEST (CAT) 0 thru 5 (total = 40) Cough: never . . . all the time [2] Phlegm: none . . . chest full [1] Chest tight: no . . . very [0] Breathless climbing stairs or incline: none . . . very [1] Limited with daily activities: not at all . . . very [0] Confident leaving home: yes . . . not at all [0] Sleep soundly: yes . . . no, because of lung condition [0] Energy: lots . . . None [2] Total Score [6] REVIEW OF SYSTEMS Orthopnea: - Paroxysmal nocturnal Dyspnea: - Pedal Edema: - Weight: stable Cough: + Post-nasal drip: - Nocturnal awakenings: + bathroom Sputum: + GERD: + fairly managed RUSTAM: - Home O2: + PRN 2L with exertion Occupation/Exposures: Occupation: [employer] Born/raised: [place] Pets: 1 dog Triggers: highlighted if positive 1. Inhaled allergens - dust mites, animal danders, molds, mice, and cockroaches 2. Respiratory irritants - strong perfumes and odors, chlorine-based cleaning products, and air pollutants. 3. Comorbid conditions -obesity, obstructive sleep apnea. 4. Medications - non-selective beta-blockers, aspirin, NSAIDs 5. Dietary sulfites - beer, wine, and food items such as processed potatoes, dried fruit, or shrimp ILD history highlighted if positive - Connective tissue disorders; SLE, Sjogren's, RA, Ipava's - Iritable bowel disease - Malignancy or chest radiation - Use of amiodarone - Family history of ILD, pulmonary fibrosis, interstitial pneumonitis - Work exposures; farm work, exotic birds, asbestos, beryllium, radon, dust, mold PAST HISTORY Past Medical History: Medical History[1] Past Surgical History: Surgical History[2] Social History: Social History Tobacco Use Smoking status: Some Days Current packs/day: 1.00 Types: Cigarettes Smokeless tobacco: Never Substance Use Topics Alcohol use: Not on file Family History: Family History[3] Allergies: Allergies[4] Immunizations: Immunization History Administered Date(s) Administered Influenza, Split (incl. purified surface antigen) Vaccine (retired code) (CVX=15) 05/26/2017 Influenza, injectable, quadrivalent, preservative free (AXT=511) 06/04/2017, 04/24/2019 Influenza, injectable, trivalent, preservative free (ZDG=622) 06/05/2015, 05/26/2017 Pneumococcal conjugate 13 valent (PCV13) (MYA=778) 06/08/2015, 05/26/2017 Pneumococcal polysaccharide 23 Valent (PPSV23) (CVX=33) 06/04/2017 Tdap (CHT=900) 06/14/2023 Pended (more content not included)... Normal [facility] Drafter Apprentice Authentication Interface Message Text Patient was identified by name and date of . Barak Cerrato MA .Patient at risk for falls:No Falls Risk protocol implemented: N/A Normal [facility] Telephone Encounteron 2024 Drafter Apprentice Authentication Interface Message Text Neurology Clinical Vamp Liner Note Attempted to call patient. LVM to return call to this RN to schedule a neurology appt for JIN with Dr Flanneyr. Letter sent SUSY Flood, RN, [facility] Clinical Vamp Liner, Neurology Normal [facility] Consultson 12-07-2024 Drafter Apprentice Authentication Interface Message Text NEUROLOGY INITIAL CONSULT NOTE Reason for Consult: L sided headache with blurring of vision Consulted by: Michael Avendano MD HPI: 64 yo M with pMH of COPD, tobacco and alcohol use, TIA (P2 occlusion 2018, on plavix), GERD, hyperlipidemia, lumbar laminectomy (07/2024) for whom we are consulted for L sided headache with blurring of vision. Sxs started 1 week ago with throbbing pain on the L eyelid/forehead region. Pain waxes and wanes. Sometimes responds to tylenol. Had L visual field blurring when he turns his head to the left. Has tearing and conjunctival injection since onset of sxs. Denies photophobia, visual floaters/lights, actual vision loss, nausea, vomiting. He denies feeling other focal/neurologic sxs like numbness or weakness when he has the headaches. Received 650 mg of tylenol with some improvement. Was previously seen in the ED on 12/02 for similar concerns, though documented to have reported that he woke up with his L eye swollen shut and actual L sided vision loss. At the time, ophtho was consulted vision was 20/20 on the R and 20/25 on the L with L sided conjunctival injection. At the time had low c/f amaurosis fugax. Other neurologic exam findings were unremarkable. CTA obtained showing no acute abnormalities but with R [employer] irregularity that was recanalized since 2019 CTA during his TIA. Labs with mild hypona otherwise fine. ESR CRP nl. Was going to be admitted to CDU but left AMA. Pain and vision changes worsened today while driving and decided to return to ED. Review of Systems ROS as in the HPI. 10 point ROS otherwise reviewed for complaint and are negative. Vitals: 12/07/24 0952 BP: 177/78 Pulse: 72 Resp: 18 Temp: 98 ???F (36.7 ???C) SpO2: 98% No intake or output data in the 24 hours ending 12/07/24 1347 Current Medications[1] lisinopril 10, lipitor 80, plavix 75, nexium 40, copd inhalers, prednisone 20 bid Exam Neurologic: Cognition: Sedation: Level of consciousness: awake, alert Affect: normal Orientation: oriented x4 Attention: normal Language: intact fluency, repetition, naming, comprehension Fund of knowledge: appropriate, knows the president Cranial Nerves CN II: Vision: visual arango intact to finger count Pupils: 4 mm OD, 4 mm OS; reactive to light bilaterally CN III, IV, : Extraocular movements: intact CN V: Facial sensation: intact CN VII: Facial motor function: intact CN VIII: Hearing: intact to conversation, finger rub CN IX, X: Palate elevation: symmetric. Dysarthria: absent CN XI: Shoulder shrug: normal CN XII: Tongue: midline; able to move fully to R and L Motor Tone: normal Spontaneous abnormal movements:None RIGHT LEFT Deltoids 5 5 Biceps 5 5 Triceps 5 5 Hand 5 5 Hip flexion 5 5 Knee extension 5 5 Knee flexion 5 5 Dorsiflexion 5 5 Plantarflexion 5 5 DTRs R Biceps: 2 Triceps: 2 Patellar: 2 Ankle: 2 Babinski: - L Biceps: 2 Triceps: 2 Patellar: 2 Ankle: 2 Babinski: - Sensation Intact to light touch Coordination R: intact on FNF, HTS L: intact on FNF, HTS Gait Normal station General appearance: normal appearing at stated age Head: atraumatic Neck: supple Eyes/orbits: no scleral icterus, edema or injection Mucous membranes: moist Lungs: Productive cough. But CTAB Heart: regular rate, regular rhythm Abdomen: soft Extremities: no deformities Skin: no rash Labs: CBC (last 3 years, up to 8 values) 12/02/2024 10/26/2024 10/25/2024 10/24/2024 1:29 PM 12:01 AM 12:52 AM 9:27 PM WBC 8.0 17.7 16.0 16.7 RBC 4.47 4.27 4.10 4.18 Hgb 13.7 12.4 12.2 12.3 Hct 38.6 37.4 35.9 36.3 MCV 86 88 88 87 RDW 15.8 15.6 15.9 15.8 Plt 259 306 277 266 BMP (last 3 years, up to 8 values) 12/02/2024 10/26/2024 10/25/2024 10/24/2024 1:29 PM 12:01 AM 12:52 AM 9:27 PM Na 134 136 136 134 K 5.0 4.0 4.0 4.5 Cl 99 101 98 98 CO2 29 26 27 25 Gap 11 13 15 16 Glu 90 104 130 140 BUN 11 29 14 13 Cr 0.89 1.03 0.90 0.87 Ca 9.4 8.9 9.0 9.2 eGFR 95 81 95 96 Lab Results Component Value Date HBA1C 5.7 (H) 10/24/2024 HBA1C 5.5 04/24/2019 Lipids (last 3 years, up to 8 values) No lab values to display. Summary of Imaging AND Other Pertinent Studies: personally reviewed 12/02 CTA head and neck: IMPRESSION: No acute intracranial abnormality. Enlargement of the left medial rectus muscle. Recanalization of the right [employer] SORTER with irregularity of the vessel. No significant stenosis, dissection, or aneurysm in the intracranial or extracranial circulation. 04/2019 CTA head and neck: IMPRESSION: 1. Abrupt occlusion of the right [employer] SORTER at the proximal P2 segment secondary to thrombus, with descent opacification of distal branches via leptomeningeal collaterals. No evidence of acute infarct or hemorrhage. 2. Mild atherosclerotic disease of the cervical and intracranial ICAs without significant stenosis or occlusion. 3. Multifocal tree-in-bud opacities within the lung apices, likely smoking-rel (more content not included)... Normal [facility] ED Provider Noteson 12-08-19 Drafter Apprentice Authentication Interface Message Text MH for BM 5:01 PM 64 year old L JIN x 1 week, CTA negative 1 week ago seen by optho cleared left AMA, back w/continued symptoms, no visual symptoms currently [ ] MRI neuro Following sign out Discussed with neurology - felt likely cluster JIN and not stroke. No need for MRI. Supportive care w/ NSAID Neurology referral placed Clinical Impression Diagnosis Comment Chronic intractable headache, unspecified headache type [R51.9, G89.29] Normal [facility] Drafter Apprentice Authentication Interface Message Text --------- HISTORY OF PRESENT ILLNESS ----- 12/07/2024, 11:32 AM. The history is provided by the Patient. Elis Bills is a 64 year old male with a PMHx of TIA presenting to the ED for headache. Pt previously at other encounter had reported left-sided vision loss that is worse when turning head to left and blurry visions with his left eye but on this visit he reports normal vision today. He denies fevers, thunderclap headaches. He describes pain as sharp, stabbing, with pain behind the eyes. He states that early this morning upon waking up, the headache was 8 of 10 and he took 2 Tylenol and 2 Advil, and the pain subsequently decreased to level 4 where it is presently. He denies recent trauma or new injury, and states that he has exactly the same headache as his prior encounter here. He states that he does not get headaches at baseline and pain is severe enough to visit ED. REVIEW OF SYSTEMS Review of Systems Constitutional: Negative for fever. Eyes: Positive for visual disturbance (Blurry vision, Vision loss). Neurological: Positive for headaches. PAST HISTORY Past Medical History: Medical History[1] Past Surgical History: Surgical History[2] Social History: Social History[3] Family History: Family History[4] The patient's home medications have been reviewed. Allergies: Penicillins and Roflumilast PHYSICAL EXAM Vitals Recorded in This Encounter 12/07/2024 0952 BP: 177/78 Pulse: 72 Resp: 18 Temp: 98 ???F (36.7 ???C) Temp src: Oral SpO2: 98 % Pain Score: 3 Constitutional: Well developed, well nourished. Awake AND alert. No distress. Head: Atraumatic. Eyes: PERRL. EOMI. No pale conjunctivae. No scleral icterus. ENT: Mucous membranes are moist. No jaw claudication. Neck: Supple. No nuchal rigidity. No temporal tenderness Cardiovascular: Regular rate. Regular rhythm. Well perfused. Pulmonary/Chest: No evidence of respiratory distress. Clear to auscultation bilaterally. No wheezing, rales or rhonchi. Abdominal: Soft and non-distended. There is no tenderness. No rebound, guarding, or rigidity. No organomegaly. Good bowel sounds. Genitourinary: No CVA tenderness. Musculoskeletal: Moves all four extremities. No edema. Skin: Skin is warm and dry. No rashes. Neuro: Alert and oriented to person, place, and time. PERRL. EOMI in all directions. Cranial nerves 3-12 are grossly intact. Normal speech. No facial asymmetry. Strength is equal and 5/5 in the upper and lower extremities bilaterally. No sensory deficits to light touch. Normal gait. No acute focal neurological deficits can be appreciated. Psychiatric: Good eye contact. Appropriate in content/context. Normal affect. LABORATORY RESULTS No results found for this visit on 12/07/24. ED COURSE --- ED Medications: Medications acetaminophen (TYLENOL) tablet (650 mg Oral Given 12/07/24 1237) 12:30 PM- Paged neurology for consult 12:37 PM- Consulted with neurology. Plan to monitor in CDU and order urine studies, MRI head. MEDICAL DECISION MAKING Vital Signs: Reviewed the patient's vital signs. Nursing Notes: Reviewed and utilized the nursing notes. Mix Crusher Operator: not needed - patient preferred language is Uzbek. External Medical Records: The patient's available past medical records and past encounters were reviewed. Summary of pertinent elements include: 12/02/24: [facility] ED: Similar sx headache, left sided vision loss Public Health Social Worker consult evaluation unremarkable. No concern for carotid artery disease or GCA Pt was recommended staying in the CDU for neuro consult Pt left AMA before placement in CDU CTA Head/Neck No acute intracranial abnormality Enlargement of the left medial rectus muscle. Recanalization of the right [employer] with irregularity of the vessel. No significant stenosis, dissection, or aneurysm in the intracranial or extracranial circulation. XR Chest No acute cardiopulmonary abnormality identified. Medical Decision Making: Same headache as before, no change except this time there is no visual deficits and no visual complaints. Patient comes because previously he had signed out AMA, and the headache has not gone away in 7 days. Low suspicion for temporal arteritis, differential diagnosis includes trigeminal neuralgia, migraine, but TIA unlikely. - Recommended Reglan for headache Review of External (Non- ED) Notes: See above Nursing triage and assessment notes reviewed and (more content not included)... Normal [facility] BASIC METABOLIC PANELon 05- Anion gap [Moles/Vol] 11 mmol/L Normal 10-20 [facility] Comment on above: Performed By: #### H STRP #### S [facility] [address] [place] [address], Calcium [Mass/Vol] 9.4 mg/dL Normal 8.6-10.3 [facility] Comment on above: Performed By: #### H STRP #### [facility] [address] [place] [address], Chloride [Moles/Vol] 99 mmol/L Normal 98-107 [facility] Comment on above: Performed By: #### H STRP #### [facility] [address] [place] [address], CO2 [Moles/Vol] 29 mmol/L Normal 21-31 [facility] Comment on above: Performed By: #### H STRP #### [facility] [address] [place] [address], Creatinine [Mass/Vol] 0.89 mg/dL Normal 0.70-1.30 [facility] Comment on above: Performed By: #### H STRP #### [facility] [address] [place] [address], ESTIMATED GFR (CKD-EPI) 95 mL/min/1.73sqm Normal >=60 [facility] Comment on above: Result Comment: 2020 CKD EPI Equation using Creatinine without Race Comment: Estimated glomerular filtration rate (eGFR) is calculated without a race coefficient. Values should be interpreted in the context of the patient's full clinical presentation. Reference: 1. Arsh Wilburn, Joe M, Reynaldo OSCAR, et al.. A Unifying Approach for GFR Estimation: Recommendations of the NKF-ASN Task Force on Reassessing the Inclusion of Race in Diagnosing Kidney Disease. [place] Journal of Kidney Diseases 2021;79(2):268-88.e1. 2. N Engl J Med 2020 Vol. 385 Issue 19 Pages 1283-9294 Performed By: #### H STRP #### [facility] [address], [place], Glucose [Mass/Vol] 90 mg/dL Normal 74-109 [facility] Comment on above: Performed By: #### H STRP #### [facility] [address], [place], Potassium [Moles/Vol] 5.0 mmol/L Normal 3.5-5.0 [facility] Comment on above: Result Comment: Hemo lysis present Performed By: #### H STRP #### [facility] [address] [place] [address], Sodium [Moles/Vol] 134 mmol/L Low 136-145 [facility] Comment on above: Performed By: #### H STRP #### [facility] [address], [place], Urea nitrogen [Mass/Vol] 11 mg/dL Normal 7-25 [facility] Comment on above: Performed By: #### H STRP #### [facility] [address], [place], Basic metabolic 2000 panelon 12-02-2024 Anion gap [Moles/Vol] 11 mmol/L 10 - 20 [facility] Calcium [Mass/Vol] 9.4 mg/dL 8.6 - 10. 3 mg/dL [facility] Chloride [Moles/Vol] 99 mmol/L 98 - 10 7 mmol/L [facility] CO2 [Moles/Vol] 29 mmol/L 21 - 31 mmol/L [facility] Creatinine [Mass/Vol] 0.89 mg/dL 0.70 - 1.30 mg/dL [facility] GFR/1.73 sq M.predicted CKD-EPI (S/P/Bld) [Vol rate/Area] 95 - PINF [facility] Comment on above: 2020 CKD EPI Equatio n using Creatinine without Race Comment: Estimated glomerular filtration rate (eGFR) is calculated without a race coefficient. Values should be interpreted in the context of the patient's full clinical presentation. Reference: 1. Arsh C, Joe M, Reynaldo OSCAR, et al.. A Unifying Approach for GFR Estimation: Recommendations of the NKF-ASN Task Force on Reassessing the Inclusion of Race in Diagnosing Kidney Disease. [place] Journal of Kidney Diseases 2021;79(2):268-88.e1. 2. N Engl J Med 2020 Vol. 385 Issue 19 Pages 1255-3351 Glucose [Mass/Vol] 90 mg/dL 74 - 109 mg/dL [facility] Interpretation and review of laboratory results Abnormal [facility] Potassium [Moles/Vol] 5 mmol/L 3.5 - 5.0 mmol/L [facility] Comment on above: Hemolysis present Sodium [Moles/Vol] 134 mmol/L Low 136 - 145 mmol/L [facility] Urea nitrogen [Mass/Vol] 11 mg/dL 7 - 25 mg/dL [facility] C-REACTIVE PROTEINon 12-02- 025 CRP [Mass/Vol] mg/dL NINF - 0.5 mg/dL [facility] Interpretation and [facility] of [facility] results Normal [facility] CRP [Mass/Vol] mg/L Normal <0.5 [facility] Comment on above: Performed By: #### H STRP #### [facility] [address] [place] [address], [id number] CBC WITH DIFFERENTIALon 11-16 Basophils (Bld) [#/Vol] 0.08 10*3/uL 0.00 - 0.20 K/uL [facility] Basophils/100 WBC (Bld) 1 % NINF - 1.9 % [facility] Eosinophils (Bld) [#/Vol] 0.13 10*3/uL 0.00 - 0.70 K/uL [facility] Eosinophils/100 WBC (Bld) 1.6 % 0.1 - 4.0 % [facility] Erythrocyte distribution width (RBC) [Ratio] 15.8 % High 11.5 - 14.5 % [facility] Hematocrit (Bld) [Volume fraction] 38.6 % Low 41.0 - 53.0 % [facility] Hemoglobin (Bld) [Mass/Vol] 13.7 g/dL Low 13.9 - 16.3 g/dL [facility] Interpretation and review of laboratory results Abnormal [facility] Lymphocytes (Bld) [#/Vol] 2.2 10*3/uL 1.00 - 4.80 K/uL [facility] Lymphocytes/100 WBC (Bld) 27.4 % 24.0 - 44.0 % [facility] MCH (RBC) [Entitic mass] 30.7 pg 26.0 - 34.0 pg [facility] MCHC (RBC) [Mass/Vol] 35.5 g/dL 32.0 - 35.9 g/dL [facility] MCV (RBC) [Entitic vol] 86 fL 80 - 100 fL [facility] Monocyte distribution width Auto (Bld) [Entitic vol] 16 NINF - 20 [facility] Monocytes (Bld) [#/Vol] 1 10*3/uL 0.20 - 1.00 K/uL [facility] Monocytes/100 WBC (Bld) 12.4 % High 2.0 - 11.0 % [facility] Neutrophils (Bld) [#/Vol] 4.64 10*3/uL 1.50 - 8.00 K/uL [facility] Neutrophils/100 WBC (Bld) 57.7 % 31.0 - 76.0 % [facility] Platelet mean volume (Bld) [Entitic vol] 7.5 fL 7.5 - 11.2 fL [facility] Platelets (Bld) [#/Vol] 259 10*3/uL 150 - 400 K/uL [facility] RBC (Bld) [#/Vol] 4.47 10*6/uL Low [facility] WBC (Bld) [#/Vol] 8 10*3/uL 4.5 - 11.5 K/uL [facility] Basophils (Bld) [#/Vol] 0.08 10*3/uL Normal 0.00-0.20 [facility] Comment on above: Performed By: #### I GE #### [facility] [address] [place] [address], [id number] Basophils/100 WBC (Bld) 1.0 % Normal <=1.9 [facility] Comment on above: Performed By: #### I GE #### [facility] [address], [place], Eosinophils (Bld) [#/Vol] 0.13 10*3/uL Normal 0.00-0.70 [facility] Comment on above: Performed By: #### I GE #### [facility] [address], [place], Eosinophils/100 WBC (Bld) 1.6 % Normal 0.1-4.0 [facility] Comment on above: Performed By: #### I GE #### [facility] [address], [place], Erythrocyte distribution width (RBC) [Ratio] 15.8 % High 11.5-14.5 [facility] Comment on above: Performed By: #### I GE #### [facility] [address], [place], Hematocrit (Bld) [Volume fraction] 38.6 % Low 41.0-53.0 [facility] Comment on above: Performed By: #### I GE #### [facility] [address], [place], Hemoglobin (Bld) [Mass/Vol] 13.7 g/dL Low 13.9-16.3 [facility] Comment on above: Performed By: #### I GE #### [facility] [address], [place], Lymphocytes (Bld) [#/Vol] 2.20 10*3/uL Normal 1.00-4.80 [facility] Comment on above: Performed By: #### I GE #### [facility] [address], [place], Lymphocytes/100 WBC (Bld) 27.4 % Normal 24.0-44.0 [facility] Comment on above: Performed By: #### I GE #### [facility] [address], [place], MCH (RBC) [Entitic mass] 30.7 pg Normal 26.0-34.0 [facility] Comment on above: Performed By: #### I GE #### [facility] [address] [place] [address], MCHC (RBC) [Mass/Vol] 35.5 g/dL Normal 32.0-35.9 [facility] Comment on above: Performed By: #### I GE #### [facility] [address] [place] [address], MCV (RBC) [Entitic vol] 86 fL Normal 80-100 [facility] Comment on above: Performed By: #### I GE #### [facility] [address] [place] [address], MONOCYTE DISTRIBUTION WIDTH 16 Normal <=20 [facility] Comment on above: Performed By: #### I GE #### [facility] [address] [place] [address], Monocytes (Bld) [#/Vol] 1.00 10*3/uL Normal 0.20-1.00 [facility] Comment on above: Performed By: #### I GE #### [facility] [address] [place] [address], Monocytes/100 WBC (Bld) 12.4 % High 2.0-11.0 [facility] Comment on above: Performed By: #### I GE #### [facility] [address] [place] [address], Neutrophils (Bld) [#/Vol] 4.64 10*3/uL Normal 1.50-8.00 [facility] Comment on above: Performed By: #### I GE #### [facility] [address] [place] [address], Neutrophils/100 WBC (Bld) 57.7 % Normal 31.0-76.0 [facility] Comment on above: Performed By: #### I GE #### [facility] [address] [place] [address], Platelet mean volume (Bld) [Entitic vol] 7.5 fL Normal 7.5-11.2 [facility] Comment on above: Performed By: #### I GE #### [facility] [address] [place] [address], Platelets (Bld) [#/Vol] 259 10*3/uL Normal 150-400 [facility] Comment on above: Performed By: #### I GE #### [facility] [address], [place], RBC (Bld) [#/Vol] 4.47 10*6/uL Low 4.50-5.90 [facility] Comment on above: Performed By: #### I GE #### [facility] [address], [place], WBC (Bld) [#/Vol] 8.0 10*3/uL Normal 4.5-11.5 [facility] Comment on above: Performed By: #### I GE #### [facility] [address] [place] [address], CTA HEAD/NECK W/on CTA HEAD/NECK W/ EXAMINATION: CTA HEAD/NECK W/ 12/02/2024 03:16 PM CLINICAL HISTORY: left eye headache and vision changes (black out temporary) ASSOCIATED DIAGNOSIS: left eye headache and vision changes (black out temporary) ORDERING PROVIDER: PADMINI FISHER TECHNOLOGISTS NOTE: COMPARISON: CTA HEAD/NECK W/+W/O 04/23/2019 2:20 PM MR HEAD W/O 04/23/2019 9:58 PM TECHNIQUE: CT angiogram of the head and neck were obtained with intravenous contrast. Thin isotropic axial imaging was obtained through the brain and neck from the vertex to the thoracic inlet during rapid IV contrast administration for evaluation of the vessels. Multiplanar and 3D maximum intensity projection reformulations were created from the raw CT data which were interpreted in conjunction with the axial images to render the findings listed below. Before infusion of intravenous contrast, radiology personnel investigated the possibility of an allergic history and any history of reaction to iodinated contrast material. Contrast Protocol: Omnipaque 350 [>or =75lb] 75ml [<75 lb] 1 ml per 1 lb. INTRA-PROCEDURE MEDS: iohexol (OMNIPAQUE) 350 MG/ML injection 75 mL Route: Intravenous Push FINDINGS: CT BRAIN: No mass or acute hemorrhage. No evidence of acute infarct. Mild generalized brain parenchymal volume loss with commensurate ventricular caliber. Patchy and confluent foci of white matter hypoattenuation, most likely moderate chronic microvascular angiopathy. There are atherosclerotic calcifications of the carotid siphons. There is thickening of the left medial rectus muscle. This may be due to idiopathic intraocular inflammation. The differential diagnosis should include thyroid ophthalmopathy. Partial opacification of the left maxillary sinus. CT ARTERIOGRAM Extracranial Circulation: Aortic Arch: No significant stenosis in the proximal brachiocephalic vessels. Carotid Arteries Right Common Carotid: No significant stenosis. Right Internal Carotid: No significant stenosis, dissection, or pseudoaneurysm. Left Common Carotid: No significant stenosis. Left Internal Carotid: No significant stenosis, dissection, or pseudoaneurysm. Vertebral Arteries: Patent with no stenosis or dissection. Intracranial Circulation Anterior Circulation: The internal carotid arteries are patent. ACAs and MCAs are patent. No vessel cutoff, aneurysm or focal hemodynamically significant stenosis. The deep venous sinuses and cavernous sinuses are patent. Vertebrobasilar Circulation: Recanalization of the previously occluded right [employer] SORTER with irregularity of the vessel. Intracranial vertebral arteries, PICA/AICA branches, basilar artery, SCAs and lighting technician are patent. No vessel cutoff, aneurysm or focal hemodynamically significant stenosis. Other: No evidence of a soft tissue mass or lymphadenopathy in the neck or superior mediastinum. The lung apices are clear. IMPRESSION: No acute intracranial abnormality. Enlargement of the left medial rectus muscle. Recanalization of the right [employer] with irregularity of the vessel. No significant stenosis, dissection, or aneurysm in the intracranial or extracranial circulation. MACRO: None Normal [facility] CTA Head vessels and Neck ve ssels WO and W contrast IVOrdered By: Ming Torres on 12-02-2024 CT DLP 3838.3 (mGy.cm) [facility] Work Phone: CT Series Head,Head,Head,Head [facility] Work Phone: CTDI VOL 67.5 (mGy),9.6 (mGy),43.5 (mGy),59.2 (mGy) [facility] Work Phone: PHANTOM TYPE IEC Head Dosimetry Phantom,IEC Head Dosimetry Phantom,IEC Head Dosimetry Phantom,IEC Head Dosimetry Phantom [facility] Work Phone: [facility] Work Phone: CTA Head vessels and Neck ve ssels WO and W contrast Boni 12-02-2024 EXAMINATION: CTA HEAD/NECK W12/02/2024 03:16 PM CLINICAL HISTORY: left eye headache and vision changes (black out temporary) ASSOCIATED DIAGNOSIS: left eye headache and vision changes (black out temporary) ORDERING PROVIDER: PADMINI FISHER TECHNOLOGISTS NOTE: COMPARISON: CTA HEAD/NECK W/+W/O 04/23/2019 2:20 PM MR HEAD W/O 04/23/2019 9:58 PM TECHNIQUE: CT angiogram of the head and neck were obtained with intravenous contrast. Thin isotropic axial imaging was obtained through the brain and neck from the vertex to the thoracic inlet during rapid IV contrast administration for evaluation of the vessels. Multiplanar and 3D maximum intensity projection reformulations were created from the raw CT data which were interpreted in conjunction with the axial images to render the findings listed below. Before infusion of intravenous contrast, radiology personnel investigated the possibility of an allergic history and any history of reaction to iodinated contrast material. Contrast Protocol: Omnipaque 350 [>or =75lb] 75ml [<75 lb] 1 ml per 1 lb. INTRA-PROCEDURE MEDS: iohexol (OMNIPAQUE) 350 MG/ML injection 75 mL Route: Intravenous Push FINDINGS: CT BRAIN: No mass or acute hemorrhage. No evidence of acute infarct. Mild generalized brain parenchymal volume loss with commensurate ventricular caliber. Patchy and confluent foci of white matter hypoattenuation, most likely moderate chronic microvascular angiopathy. There are atherosclerotic calcifications of the carotid siphons. There is thickening of the left medial rectus muscle. This may be due to idiopathic intraocular inflammation. The differential diagnosis should include thyroid ophthalmopathy. Partial opacification of the left maxillary sinus. CT ARTERIOGRAM Extracranial Circulation: Aortic Arch: No significant stenosis in the proximal brachiocephalic vessels. Carotid Arteries Right Common Carotid: No significant stenosis. Right Internal Carotid: No significant stenosis, dissection, or pseudoaneurysm. Left Common Carotid: No significant stenosis. Left Internal Carotid: No significant stenosis, dissection, or pseudoaneurysm. Vertebral Arteries: Patent with no stenosis or dissection. Intracranial Circulation Anterior Circulation: The internal carotid arteries are patent. ACAs and MCAs are patent. No vessel cutoff, aneurysm or focal hemodynamically significant stenosis. The deep venous sinuses and cavernous sinuses are patent. Vertebrobasilar Circulation: Recanalization of the previously occluded right [employer] SORTER with irregularity of the vessel. Intracranial vertebral arteries, PICA/AICA branches, basilar artery, SCAs and lighting technician are patent. No vessel cutoff, aneurysm or focal hemodynamically significant stenosis. Other: No evidence of a soft tissue mass or lymphadenopathy in the neck or superior mediastinum. The lung apices are clear. IMPRESSION: No acute intracranial abnormality. Enlargement of the left medial rectus muscle. Recanalization of the right [employer] SORTER with irregularity of the vessel. No significant stenosis, dissection, or aneurysm in the intracranial or extracranial circulation. MACRO: None RADIOLOGY Ming Torres MD - 12/02/2024 EXAMINATION: CTA HEAD/NECK 12/02/2024 03:16 PM CLINICAL HISTORY: left eye headache and vision changes (black out temporary) ASSOCIATED DIAGNOSIS: left eye headache and vision changes (black out temporary) ORDERING PROVIDER: PADMINI FISHER TECHNOLOGISTS NOTE: COMPARISON: CTA HEAD/NECK W/+W/O 04/23/2019 2:20 PM MR HEAD W/O 04/23/2019 9:58 PM TECHNIQUE: CT angiogram of the head and neck were obtained with intravenous contrast. Thin isotropic axial imaging was obtained through the brain and neck from the vertex to the thoracic inlet during rapid IV contrast administration for evaluation of the vessels. Multiplanar and 3D maximum intensity projection reformulations were created from the raw CT data which were interpreted in conjunction with the axial images to render the findings listed below. Before infusion of intravenous contrast, radiology personnel investigated the possibility of an allergic history and any history of reaction to iodinated contrast material. Contrast Protocol: Omnipaque 350 [>or =75lb] 75ml [<75 lb] 1 ml per 1 lb. INTRA-PROCEDURE MEDS: iohexol (OMNIPAQUE) 350 MG/ML injection 75 mL Route: Intravenous Push FINDINGS: CT BRAIN: No mass or acute hemorrhage. No evidence of acute infarct. Mild generalized brain parenchymal volume loss with commensurate ventricular caliber. Patchy and confluent foci of white matter hypoattenuation, most likely moderate chronic microvascular angiopathy. There are atherosclerotic calcifications of the carotid siphons. There is thickening of the left medial rectus muscle. This may be due to idiopathic intraocular inflammation. The differential diagnosis should include thyroid ophthalmopathy. Partial opacification of the left maxillary sinus. CT ARTERIOGRAM Extracranial Circulation: Aortic Arch: No significant stenosis in the proximal brachiocephalic vessels. Carotid Arteries Right Common Carotid: No significant stenosis. Right Internal Carotid: No significant stenosis, dissection, or pseudoaneurysm. Left Common Carotid: No significant stenosis. Left Internal Carotid: No significant stenosis, dissection, or pseudoaneurysm. Vertebral Arteries: Patent with no stenosis or dissection. Intracranial Circulation Anterior Circulation: The internal carotid arteries are patent. ACAs and MCAs are patent. No vessel cutoff, aneurysm or focal hemodynamically significant stenosis. The deep venous sinuses and cavernous sinuses are patent. Vertebrobasilar Circulation: Recanalization of the previously occluded right RECYCLABLE PRODUCTS SORTER with irregularity of the vessel. Intracranial vertebral arteries, PICA/AICA branches, basilar artery, SCAs and lighting technician are patent. No vessel cutoff, aneurysm or focal hemodynamically significant stenosis. Other: No evidence of a soft tissue mass or lymphadenopathy in the neck or superior mediastinum. The lung apices are clear. IMPRESSION: No acute intracranial abnormality. Enlargement of the left medial rectus muscle. Recanalization of the right [employer]YCL[employer]ODU[employer] SORTER with irregularity of the vessel. No significant stenosis, dissection, or aneurysm in the intracranial or extracranial circulation. MACRO: None [facility] Radiology Study observation (narrative) [facility] 12-02-2024 Drafter Apprentice Authentication Interface Message Text Attestation signed by Beverly Crystal MD at 12/04/2024 8:59 AM I have not personally seen or evaluated the patient. I agree with the resident notes and management. Beverly Walker MD OPHTHALMOLOGY CONSULT REASON FOR CONSULT: ?acute vision loss and Left eye pain HPI: Elis Bills is a 64 year old male who presented with complaint of L eye pain and possible episode of acute vision loss in the left eye. He states that he woke up this morning and felt as if his L eye was swollen shut and as if he was seeing black. He is unsure if his eyelid wad actually swollen shut and if this was what was causing him to see black. He reports that these symptoms have now resolved but he is having L eye pain. Also has been having a headache over his L orbit since yesterday. Denies new flashes floaters. No jaw claudication or temporal artery tenderness. No photophobia or diplopia. ESR/CRP in the ED wnl. CTA obtained in the ED without significant vessel stenosis. Enlargement of L medical rectus muscle noted. POHx: none Ocular meds: none PMHx: Problem List[1] Exam: VISION: OD: 20/20 OS: 20/25 IOP by tonopen OD: 13 OS: 17 EOM: FULL OU PUPILS: equally round and reactive to light OU. No afferent pupillary defect. External Exam: WNL OU ANTERIOR SEGMENT CONJ/SCLERA: OD: white and quiet, chalasis OS: 1+ conjunctival injection nasally, chalasis CORNEA: OD: no epithelial defect, clear stroma OS: no epithelial defect, clear stroma AC: OD: deep and quiet OS: deep and quiet IRIS: OD: normal stroma; Dilated OS: normal stroma; Dilated LENS: OD: nuclear sclerosis +2 OS: nuclear sclerosis +2 Dilated OU with tropicamide 1% and phenylephrine 2.5% POSTERIOR SEGMENT VITREOUS OD: Clear, no cell, heme, or pigment OS: Clear, no cell, heme, or pigment DISC OD: [place], sharp, perfused, and c/d 0.3 OS: [place], sharp, perfused, and c/d 0.25 VESSELS OD: Normal course and caliber. No plaque appreciated. OS: Normal course and caliber. No plaque appreciated. MACULA OD: Flat, no heme, no commotio, no holes OS: Flat, no heme, no commotio, no holes PERIPHERY OD: Attached, no tears, breaks, detachments, or lesions appreciated OS: Attached, no tears, breaks, detachments, or lesions appreciated ASSESSMENT AND PLAN R-sided Conjunctival injection ?Episode of transient L-sided vision loss -Pt reports that he woke up this AM with L-eyelid ?swollen shut and was seeing black. Rubbed his eye and black vision resolved. Notes L eye painful and red since then. -Pt unsure if his eyelids were swollen shut causing him to see black or if his eye was actually open at this time. -ESR and CRP obtained in the ED wnl, CBC with normal platelets: reassuring against GCA. -CTA head and neck without significant vessel stenosis -On exam, patient with 1+ conjunctival injection OS, no epi defects, NO plaque noted on DFE. Overall, given history and exam, would have low suspicion for amaurosis fugax. Plan: -No further workup indicated from an ophthalmic perspective. Low c/f amaurosis fugax. -Routine f/u with optometry. 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 -Provided patient with return precautions should he have a recurrence of transient vision loss. Dhiraj Mustafa MD Ophthalmology Resident Plan discussed with senior resident on-call, Dr. Saldivar Please page [phone] with any questions or concerns. Commonly used ophthalmology abbreviations: AC: Anterior chamber; ACIOL: Anterior chamber intraocular lens; APD, RAPD: (Relative) Afferent pupillary defect; ARMD, AMD: Age-related macular degeneration; ASC: Anterior subcapsular cataract; BRAO/BRVO: Branch retinal artery/vein occlusion; BCL: bandage contact lens; cc: With correction; CDR: Cup disk ratio; CE/IOL: Cataract extraction with intraocular lens implant; CF: Counting fingers; CL, CTL: Contact lens; CME: Cystoid macular edema; CNV, CNVM: Choroidal neovascularization; CRAO/CRVO: Central retinal artery/vein occlusion; CRS: Chorioretinal scar; CR, CRX: Cycloplegic refraction; CATHLEEN: Dry eye syndrome; DME: Diabetic macular edema; DR: Diabetic retinopathy; ERM: Epiretinal membrane; ET: esotropia; GDI: Glaucoma drainage implant; HM: Hand motions; HVF: Mckenna visual field; IOL: Intraocular lens; IOP: Intraocular pressure; IRF: Intra-retinal fluid; IRH: Intra-retinal hemorrhage; K: Cornea or Keratometry; KP; Keratic precipitates; LP: Light perception; LPI: Laser peripheral iridotomy; MA: Microaneurysm; MGD: Meibomian gland dysfunction; MH: Macular hole; MP: Membrane peeling or macular pucker; MR, MRX: Manifest refraction; NAION: Non-arteritic ischemic optic neuropathy; NLP: No light perception; NPDR: Nonproliferative diabetic retinopathy; NVA/NVD/NVE: Neovascularization of the angle/disc/elsewh (more content not included)... Normal [facility] ED Provider Noteson 12-03-19 Drafter Apprentice Authentication Interface Message Text ED RESIDENT CONTINUATION OF CARE NOTE Elis Bills was signed out to me at [address] Fisher. The brief history and prior ED plan at sign out is per the below. 64yo M PMH TIA, HLD, HTN in ED for headache with vision loss. L-sided behind eye. Blackout vision, rubbed eye and went away now with injection. CTA ordered. Ophtho to see and neuro aware - poss trigeminal encephalo? If CTA neg - CDU. [ ] Ophtho rec,s CTA, CDU Signout note reviewed. ED Course as of 12/02/247 Sat December 02, 2024 1336 BP: 159/78 [PD] 1336 Temperature: 98 ???F (36.7 ???C) [PD] 1336 Heart Rate: 70 [PD] 1336 Respiratory Rate: 19 [PD] 1336 SpO2: 99 % [PD] 1336 Fingerstick Glucose: 104 [PD] 1337 Charts/External Notes reviewed: I personally reviewed the IM admission that revealed history of COPD (FEV1 64% FEV1/FVC 70%) , tobacco abuse, alcohol abuse (30 beers/week) TIA (P2 occlusion 2018, on plavix), GERD, HLD, lumbar laminectomy (07/2024). [PD] 1351 I personally read and interpreted the chest xray to have no evidence of pneumothorax, pneumonia, interstitial edema, or pleural effusion. Will confirm my findings with final radiology read. [PD] 1412 Complete Blood Count W/Diff(!): WBC 8.0 RBC 4.47(!) Hemoglobin 13.7(!) Hematocrit 38.6(!) MCV 86 MCH 30.7 MCHC 35.5 Platelet 259 RDW-CV% 15.8(!) MPV 7.5 Neutrophils 57.7 Neutrophil # 4.64 Lymphocytes 27.4 Lymph Absolute 2.20 Monocytes 12.4(!) Monocyte Absolute 1.00 Eosinophil 1.6 Eosinophil Absolute 0.13 Basophils 1.0 Basophil # 0.08 MDW 16 No signs of new anemia and or leukocytosis. [PD] 1418 ECHOCARDIOGRAM REPORT (10/25/24 1134) Summary Technically limited study. Hyperdynamic LV systolic function. The left ventricular ejection fraction (LVEF) is 80%. Normal RV systolic function. Dilated left atrium. Asymmetric left ventricular hypertrophy is present. No hemodynamically significant valve disease. Noninvasive hemodynamic assessment is consistent with a low CVP. The pulmonary artery systolic pressure could not be estimated. See above for further details. [PD] 1428 Basic Metabolic Panel(!): Glucose 90 Sodium 134(!) Potassium 5.0 Carbon Dioxide 29 Chloride 99 BUN 11 Creatinine 0.89 Calcium 9.4 Anion Gap 11 Estimated GFR 95 No signs of LAKSHMI, change from baseline creatinine, or electrolyte abnormalities needing intervention. [PD] 1439 Sed Rate (ESR): 18 [PD] 1453 C-Reactive Protein: <0.5 [PD] 1453 I personally read and interpreted the chest xray to have no evidence of pneumothorax, pneumonia, interstitial edema, or pleural effusion. Will confirm my findings with final radiology read. [PD] 1455 The lack of elevation in his inflammatory markers make temporal arteritis less likely [PD] 1513 I have discussed the case with ophtho team, it was decided that they will come see the patient. [PD] 1707 Per ophtho: His exam for us was pretty unremarkable and looks like his workup is reassuring against significant carotid artery disease or GCA. Nothing else on our end for workup. He can f/u with optom routinely. [MC] ED Course User Index [MC] Prashanth Heaton MD [PD] Padmini Fisher MD Medical Decision Making: Elis Bills is a 64 year old male who presented to the ED for Chief Complaint Patient presents with Headache JIN x24 hrs w/ vision changes During my care, pt remained stable in the ED. Initial stabilization and care of Elis Bills was provided by the prior resident. On reassessment of the pt, all vitals were stable and the pt was aware of the disposition going forward. Pending the above at time of sign out. CTA unremarkable for acute findings. Advised pt of the above findings and recommendations to go to the CDU for observation and neuro to see in the AM for concern of intracranial pathology. Pt states he does not want to stay and would rather go home. Advised pt again of our concerns, and states he is fine - would like to leave AMA. Read AMA statement per the below and pt understanding of risks and reasons to return to the ED. The ultimate disposition for this pt was AMA after significant effort to have pt stay for further workup. The patient was aware of this decision and comfortable with this. All vitals stable in the ED prior to disposition. --------- IMPRESSION AND DISPOSITION ------- Clinical Impression Diagnosis Comment Nonintractable headache, unspecified chronicity pattern, unspecified headache type [R51.9] Vision changes [H53.9] 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 artery (HCC) [I63.532] Left against medical advice [Z53.29] Disposition: Against Medical Advice. The patient exhibits decision making capacity and has been informed of the risks of , Permanent disability, Stroke, Paralysis, Loss of limb or other body part, Permanent loss of physica (more content not included)... Normal [facility] Drafter Apprentice Authentication Interface Message Text Attestation signed by Davie Carroll MD at 12/04/2024 7:17 PM ATTENDING NOTE I saw and evaluated the patient. I personally obtained the flowers and critical portions of the history and physical exam. I reviewed the resident's documentation and discussed the patient with the resident. I agree with the resident's medical decision making as documented in the resident's note. Davie Carly, MD EMERGENCY DEPARTMENT - VISIT NOTE --------- HISTORY OF PRESENT ILLNESS ----- Triage History: Chief Complaint Patient presents with Headache JIN x24 hrs w/ vision changes Physician History: HIPAA: Verbal permission granted from patient to discuss case, including protected health information, in front of family / friends in room at the time of the evaluation. Mix Crusher Operator: not needed - patient preferred language is Uzbek. The history is provided by the Patient. Elis Bills is a 64 year old male with a history of COPD (FEV1 64% FEV1/FVC 70%) , tobacco abuse, alcohol abuse (30 beers/week) TIA (P2 occlusion 2018, on plavix), GERD, HLD, lumbar laminectomy (07/2024 presenting to the ED for headache Patient states starting yesterday he had this headache that was left sided and felt like it was behind his eye. The patient states he does not get headaches typically and this was fairly severe. The patient then took a few aspirin and the headache improved. The patient woke up this morning and he noticed that his left eye was blacked out. He initially thought it was because his eye lid would not open but he did not see this on a mirror. The patient states he rubbed his eye and his vision has improved since. The patient states the headache is still present and his vision is back to normal. The patient denies any fevers, neck pain, chest pain, difficulty moving his neck, history of vision loss. The patient states he takes his meds every other day. PAST HISTORY Pertinent Past History: Medical History[1] Pertinent Family History: Family History[2] Pertinent Social History: Social History Occupational History Not on file Tobacco Use Smoking status: Some Days Types: Cigarettes Smokeless tobacco: Never Substance and Sexual Activity Alcohol use: Not on file Drug use: Not on file Sexual activity: Not on file PHYSICAL EXAM - BP 159/78 Pulse 70 Temp 98 ???F (36.7 ???C) (Oral) Resp 19 SpO2 99% Physical Exam Constitutional: Appearance: He is normal weight. HENT: Nose: Nose normal. Mouth/Throat: Mouth: Mucous membranes are moist. Eyes: General: No visual field deficit. Left eye: No foreign body or discharge. Extraocular Movements: Extraocular movements intact. Right eye: Normal extraocular motion and no nystagmus. Left eye: Normal extraocular motion and no nystagmus. Conjunctiva/sclera: Left eye: Left conjunctiva is injected. Pupils: Pupils are equal, round, and reactive to light. Comments: Left intraocular pressure 13 Cardiovascular: Rate and Rhythm: Normal rate. Pulses: Normal pulses. Pulmonary: Effort: Pulmonary effort is normal. Breath sounds: No wheezing or rales. Abdominal: General: Abdomen is flat. Tenderness: There is no abdominal tenderness. There is no right CVA tenderness, left CVA tenderness, guarding or rebound. Musculoskeletal: Right lower leg: No edema. Left lower leg: No edema. Skin: General: Skin is warm. Capillary Refill: Capillary refill takes less than 2 seconds. Neurological: Mental Status: He is alert and oriented to person, place, and time. Cranial Nerves: No dysarthria or facial asymmetry. Sensory: Sensation is intact. Motor: Motor function is intact. No weakness, tremor or abnormal muscle tone. MEDICAL DECISION MAKING and ED COURSE Evaluated by EM attending Davie Carroll Course: ED Course as of 12/02/24 1638 Sat December 02, 2024 1336 BP: 159/78 [PD] 1336 Temperature: 98 ???F (36.7 ???C) [PD] 1336 Heart Rate: 70 [PD] 1336 Respiratory Rate: 19 [PD] 1336 SpO2: 99 % [PD] 1336 Fingerstick Glucose: 104 [PD] 1337 Charts/External Notes reviewed: I personally reviewed the IM admission that revealed history of COPD (FEV1 64% FEV1/FVC 70%) , tobacco abuse, alcohol abuse (30 beers/week) TIA (P2 occlusion 2018, on plavix), GERD, HLD, lumbar laminectomy (07/2024). [PD] 1351 I personally read and interpreted the chest xray to have no evidence of pneumothorax, pneumonia, interstitial edema, or pleural effusion. Will confirm my findings with final radiology read. [PD] 1412 Complete Blood Count W/Diff(!): WBC 8.0 (more content not included)... Normal [facility] ERYTHROCYTE SEDIMENTATION RA Mylene 12-02-2024 ESR (Bld) [Velocity] 18 mm/h [facility] Interpretation and review of laboratory results [facility] ESR (Bld) [Velocity] 18 mm/h Normal <=20 [facility] Comment on above: Performed By: #### H STRP #### [facility] [address] [place] [address], [phone] GLUCOSE, FINGERSTICK-IN OFFI CEon 12-02-2024 Glucose [Mass/Vol] 104 mg/dL 74 - 109 mg/dL [facility] Interpretation and review of laboratory results [facility] Glucose [Mass/Vol] 104 mg/dL Normal 74-109 [facility] Comment on above: Performed By: #### [id number] #### NURSING GLUCOSE PROGRAM [address] [place], [address] HIGH SENSITIVITY TROPONIN Io n 12-02-2024 Troponin I.cardiac DL <= 0.01 ng/mL [Mass/Vol] 11 ng/L [facility] - 15 ng/L [facility] HS TROPONIN I 11 ng/L Normal <=15 [facility] Comment on above: Order Comment: [place] ignacio troponin can result from acute myocardial infarction (coronary etiology) or myocardial injury (non-coronary etiology) - always consider both. Interval test times for ruling out acute coronary syndrome (ACS) are 2 hours. All results are reported in whole numbers representing ng/L. Results obtained by different labs or methods are not comparable. For ruling out ACS, lab values are always used in conjunction with clinical risk assessment (e.g., HEART score*). Interpreting initial value in ruling out ACS Less than 5 ng/L - below lower limit of quantification - essentially rules out ACS if chest pain began more than 3 hours prior to test and assessed risk is low. 5 - 49 ng/L - indeterminate - consider repeat value in 2 hours depending on risk assessment. 50 ng/L or greater - concern for ACS or myocardial injury. Interpreting delta values in ruling out ACS. Always compare to initial value obtained: Absolute change (rise or fall) of less than 5 ng/L - essentially rules out ACS if assessed clinical risk is low. Absolute change (rise or fall) of 5 - 19 ng/L - indeterminate - consider another repeat value in 2 hours depending on assessed clinical risk. Absolute change (rise or fall) of 20 ng/L or greater - concern for ACS or myocardial injury. Any absolute value of 50 ng/L or greater - concern for ACS or myocardial injury. *When using hsTnI to calculate the HEART score, use the 99% Upper Reference Limit of 15 ng/L as the normal limit (i.e. <=15 ng/L = 0 points, 16-45 ng/L = 1 point, >45 ng/L = 2 points). Disposition Intermediate hsTnI values DO NOT mandate admission to a cardiology or telemetry unit. They need to be interpreted within the clinical context using provider judgement. Performed By: #### H STRP #### [facility] [address] [place] [address], [phone] Troponin I.cardiac DL <= 0.0 1 ng/mL [Mass/Vol]on 12-02-2024 Interpretation and review of laboratory results Normal [facility] Elevated troponin ca n result from acute myocardial infarction (coronary etiology) or myocardial injury (non-coronary etiology) - always consider both. Interval test times for ruling out acute coronary syndrome (ACS) are 2 hours. All results are reported in whole numbers representing ng/L. Results obtained by different labs or methods are not comparable. For ruling out ACS, lab values are always used in conjunction with clinical risk assessment (e.g., HEART score*). Interpreting initial value in ruling out ACS Less than 5 ng/L - below lower limit of quantification - essentially rules out ACS if chest pain began more than 3 hours prior to test and assessed risk is low. 5 - 49 ng/L - indeterminate - consider repeat value in 2 hours depending on risk assessment. 50 ng/L or greater - concern for ACS or myocardial injury. Interpreting delta values in ruling out ACS. Always compare to initial value obtained: Absolute change (rise or fall) of less than 5 ng/L - essentially rules out ACS if assessed clinical risk is low. Absolute change (rise or fall) of 5 - 19 ng/L - indeterminate - consider another repeat value in 2 hours depending on assessed clinical risk. Absolute change (rise or fall) of 20 ng/L or greater - concern for ACS or myocardial injury. Any absolute value of 50 ng/L or greater - concern for ACS or myocardial injury. *When using hsTnI to calculate the HEART score, use the 99% Upper Reference Limit of 15 ng/L as the normal limit (i.e. <=15 ng/L = 0 points, 16-45 ng/L = 1 point, >45 ng/L = 2 points). Disposition Intermediate hsTnI values DO NOT mandate admission to a cardiology or telemetry unit. They need to be interpreted within the clinical context using provider judgement. [facility] XR CHEST PA+LAT 2 VIEWSon XR CHEST PA+LAT 2 VIEWS EXAMINATION: XR CHEST PA+LAT 2 VIEWS 12/02/2024 01:50 PM CLINICAL HISTORY: Hx of previous CVA ASSOCIATED DIAGNOSIS: Hx of previous CVA ORDERING PROVIDER: ELVIS RODRIGUEZ TECHNOLOGISTS NOTE: COMPARISON: XR CHEST AP OR PA 1 VIEW 10/24/2024 9:06 PM FINDINGS: Cardiomediastinal silhouette: The cardiomediastinal silhouette measures within normal limits. Lungs/Pleura: No focal pulmonary consolidation, effusion or pneumothorax. Musculoskeletal: Multilevel degenerative changes in the imaged spine. Mild degenerative changes in bilateral acromion clavicular joints. IMPRESSION: No acute cardiopulmonary abnormality identified. MACRO: None I have personally reviewed the images and agree with the resident's interpretation. Normal [facility] Chest PA and Lateralon EXAMINATION: XR CHES T PA+LAT 2 VIEWS 12/02/2024 01:50 PM CLINICAL HISTORY: Hx of previous CVA ASSOCIATED DIAGNOSIS: Hx of previous CVA ORDERING PROVIDER: ELVIS RODRIGUEZ TECHNOLOGISTS NOTE: COMPARISON: XR CHEST AP OR PA 1 VIEW 10/24/2024 9:06 PM FINDINGS: Cardiomediastinal silhouette: The cardiomediastinal silhouette measures within normal limits. Lungs/Pleura: No focal pulmonary consolidation, effusion or pneumothorax. Musculoskeletal: Multilevel degenerative changes in the imaged spine. Mild degenerative changes in bilateral acromion clavicular joints. IMPRESSION: No acute cardiopulmonary abnormality identified. MACRO: None I have personally reviewed the images and agree with the resident's interpretation. RADIOLOGY Michael Mcdonald MD - 12/02/2024 EXAMINATION: XR CHEST PA+LAT 2 VIEWS 12/02/2024 01:50 PM CLINICAL HISTORY: Hx of previous CVA ASSOCIATED DIAGNOSIS: Hx of previous CVA ORDERING PROVIDER: ELVIS RODRIGUEZ TECHNOLOGISTS NOTE: COMPARISON: XR CHEST AP OR PA 1 VIEW 10/24/2024 9:06 PM FINDINGS: Cardiomediastinal silhouette: The cardiomediastinal silhouette measures within normal limits. Lungs/Pleura: No focal pulmonary consolidation, effusion or pneumothorax. Musculoskeletal: Multilevel degenerative changes in the imaged spine. Mild degenerative changes in bilateral acromion clavicular joints. IMPRESSION: No acute cardiopulmonary abnormality identified. MACRO: None I have personally reviewed the images and agree with the resident's interpretation. [facility] Radiology Study observation (narrative) [facility] XR Chest PA and LateralOrder ed By: Michael Mcdonald on 12-02-2024 [facility] Work Phone: Telephone Encounteron 2024 Drafter Apprentice Authentication Interface Message Text COPD Care Coordination note: Subjective: I am doing ok Objective: Future Appointments (next 10) Provider Department Center 01/08/2025 10:20 AM (Arrive by 10:10 AM) Veronica Butt, 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-EXPORT 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 [facility] Pulmonary Main [place] 01/18/2025 9:40 AM Anna Sanders PA-C [facility] Called patient who reports: Patient reports shortness of breath: No, doing so much better. Not using oxygen all of the time. Participated in completion of Social Determinants of Health: No Assessment: Spoke to patient states that he is doing so much better today. Patient reports that he is checking his pulse ox at residence. Patient reports that he has a home oxygen machine that he uses as need be. Patient reports that he is taking his breathing treatments as prescribed. Patient denies additional questions or concerns at this time. Plan: Take all medications as prescribed Attend all recommended appointments Brooke Wu Lead Sustainability Specialist [phone] Option 3 Normal [facility] Progress Noteson 11-17-2024 Drafter Apprentice Authentication Interface Message Text History provided by: Patient and spouse Chief Complaint Patient presents with * New patient, to establish relationship PCP is NON-EPICCARE, PROVIDER Patient Active Problem List: 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 artery (HCC) [I63.532] Exacerbation of intermittent asthma, unspecified asthma severity (HCC) [J45.21] COPD exacerbation (HCC) [J44.1] Vitals Recorded in This Encounter 11/17/2024 1408 Pulse: 74 Resp: 18 Temp: 98.5 ???F (36.9 ???C) SpO2: 96 % Weight: 269 lb 8 oz (122.2 kg) Height: 5' 8.5 (1.74 m) Pain Score: 0 Health Maintenance Topic Date Due * Hepatitis C Antibody Never done * CRC Screening Never done * Shingles (RZV) Vaccine (1 of 2) Never done * RSV vaccine (adult) (1 - Risk 60-74 years 1-dose series) Never done * Pneumococcal Vaccine(s) (50+ yrs) (3 of 3 - PCV20 or PCV21) 06/04/2022 * COVID-19 Vaccine ( - season) Never done * Welcome to Medicare Visit (G0402) Never done * Hepatitis A (HAV) Vaccine (optional start 19+ years) 1978 * Hepatitis B (HBV) Vaccine (optional start 60+ years) 2019 * Hemoglobin A1C 10/24/2025 * Cholesterol 02/21/2028 * Tetanus (Td or Tdap) Booster 06/14/2033 * Tdap Booster Completed * Pulmonary Function Testing Completed Current Outpatient Medications Medication Sig Dispense Refill * acetaminophen (TYLENOL) 325 mg tablet Take 650 mg by mouth every 6 hours. * Breztri Aerosphere 160-9-4.8 MCG/ACT AERO Inhale 2 Puffs by mouth 2 times daily. * budesonide (PULMICORT) 0.5 MG/2ML nebulizer suspension Inhale 0.5 mg by mouth 2 times daily. * cyclobenzaprine (FLEXERIL) 10 MG tablet Take 10 mg by mouth 3 times daily as needed. * Docusate Sodium (DSS) 100 MG CAPS Take 100 mg by mouth 2 times daily. * montelukast (SINGULAIR) 10 MG tablet Take 10 mg by mouth at bedtime. * albuterol (PROVENTIL) (2.5 MG/3ML) 0.083% nebulizer solution Use 2.5 mg via nebulizer every 4 hours as needed for Wheezing or Shortness of Breath. * albuterol (PROVENTIL HFA) INHALATION HFA inhaler (VENTOLIN,PROAIR,PROV ENTIL) 90mcg Inhale 2 Puffs by mouth every 4 hours as needed for Wheezing or Shortness of Breath. 18 g 2 * ipratropium-albuterol (DUO-NEB) 0.5-2.5 (3) MG/3ML nebulizer solution Use 3 mL via nebulizer every 4 hours as needed for Wheezing. 60 Each 2 * umeclidinium-vilanter ol (ANORO-ELLIPTA) 62.5-25 mcg/inh AEPB inhalation powder Inhale 1 Puff by mouth daily. 180 Each 3 * esomeprazole (NEXIUM) 40 MG capsule Take 1 Capsule by mouth daily (30 minutes before breakfast). 30 Capsule 3 * clopidogrel (Plavix) 75 MG tablet Take 1 Tablet by mouth daily. 90 Tablet 3 * atorvastatin (LIPITOR) 80 mg tablet Take 1 Tablet by mouth at bedtime. 90 Tablet 3 * lisinopril (ZESTRIL) 10 MG tablet Take 1 Tablet by mouth daily. 90 Each 3 * folic acid 1 MG tablet Take 1 Tablet by mouth daily. 30 Tablet 3 * vitamin B-1 (THIAMINE) 100 MG tablet Take 1 Tablet by mouth daily. 30 Tablet 3 * Pediatric Multivitamins-Iron (Cerovite Jr) chew tab Take 1 Tablet by mouth daily. 30 Tablet 2 No current facility-administered medications for this visit. Physical Exam Vitals and nursing note reviewed. Constitutional: Appearance: Normal appearance. Neck: Vascular: No carotid bruit. Cardiovascular: Rate and Rhythm: Normal rate and regular rhythm. Pulmonary: Breath sounds: Examination of the right-upper field reveals decreased breath sounds. Examination of the left-upper field reveals decreased breath sounds. Examination of the right-middle field reveals decreased breath sounds. Examination of the left-middle field reveals decreased breath sounds. Examination of the right-lower field reveals decreased breath sounds, wheezing and rhonchi. Examination of the left-lower field reveals decreased breath sounds, wheezing and rhonchi. Decreased breath sounds, wheezing and rhonchi present. Musculoskeletal: General: Normal range of motion. Cervical back: Normal range of motion. Neurological: Mental Status: He is alert. Assessment Elis was seen today for new patient, to establish relationship. Pt with severe COPD states when active pulse ox is in the 80%. Recently d/c from the hospital with COPD than pneumonia given home O@ has an appt with Pulmonology schedule. Needs refill of meds. Diagnoses and all orders for this visit: COPD exacerbation (HCC)- stable refills - predniSONE (DELTASONE) 20 MG tablet; Take 1 Tablet by mouth 2 times daily. - umeclidinium-vilanter ol (ANORO-ELLIPTA) 62.5-25 mcg/inh AEPB inhalation powder; Inhale 1 Puff by mouth daily. - folic acid 1 MG tablet; Take 1 Tablet by mouth daily. - vitamin B-1 (THIAMINE) 100 MG tablet; Take 1 Tablet by mouth daily. - ipratropium-albuterol (DUO-NEB) 0.5-2.5 (3) MG/3ML nebulizer solution; Use 3 mL via nebulizer every 4 hours as needed for Wheezing. Cerebral infarction due to occlusion of left posterior cerebra (more content not included)... Normal [facility] Drafter Apprentice Authentication Interface Message Text Identification was verified by patient verbalizing his name and date of . Normal [facility] Telephone Encounteron 2024 Drafter Apprentice Authentication Interface Message Text Vijay, The patient has been referred to the pulmonary rehab program. The pulmonary referral that was placed does not have the measurements from the PFT included within it. On the referral it states Patient's Reference Values: No results found for: [id number]. In order to assess whether or not the patient qualifies, we will need these values filled in on the referral. Please consider ordering PFTs for the patient so that the updated values can be included in the referral. Based on the current referral, the patient will not be added to the workqueue at this time. Thank you. Normal [facility] BASIC METABOLIC PANELon - Anion gap [Moles/Vol] 13 mmol/L Normal 10-20 [facility] Comment on above: Performed By: #### C H8, MG ####S PATHOLOGY [id number] [place], [place], Calcium [Mass/Vol] 8.9 mg/dL Normal 8.6-10.3 [facility] Comment on above: Performed By: #### C H8, MG ####S PATHOLOGY [id number] [place], [place], Chloride [Moles/Vol] 101 mmol/L Normal 98-107 [facility] Comment on above: Performed By: #### C H8, MG ####S PATHOLOGY [id number] [place], [place], CO2 [Moles/Vol] 26 mmol/L Normal 21-31 [facility] Comment on above: Performed By: #### C H8, MG ####[facility] [id number] [place], [place], Creatinine [Mass/Vol] 1.03 mg/dL Normal 0.70-1.30 [facility] Comment on above: Performed By: #### C H8, MG ####S PATHOLOGY [id number] [place], [place], ESTIMATED GFR (CKD-EPI) 81 mL/min/1.73sqm Normal >=60 [facility] Comment on above: Result Comment: 2020 CKD EPI Equation using Creatinine without Race Comment: Estimated glomerular filtration rate (eGFR) is calculated without a race coefficient. Values should be interpreted in the context of the patient's full clinical presentation. Reference: 1. Arsh C, Joe M, Reynaldo DC, et al.. A Unifying Approach for GFR Estimation: Recommendations of the NKF-ASN Task Force on Reassessing the Inclusion of Race in Diagnosing Kidney Disease. [place] Journal of Kidney Diseases 2021;79(2):268-88.e1. 2. N Engl J Med 1 Vol. 385 Issue 19 Pages 5725-9971 Performed By: #### Cosmo H8, MG ####[facility] PATH[facility] [id number] [place], [place], Glucose [Mass/Vol] 104 mg/dL Normal 74-109 [facility] Comment on above: Performed By: #### Cosmo H8, MG ####[facility] PATH[facility] [id number] [place], [place], Potassium [Moles/Vol] 4.0 mmol/L Normal 3.5-5.0 [facility] Comment on above: Performed By: #### Cosmo H8, MG ####[facility] PATH[facility] [id number] [place], [place], Sodium [Moles/Vol] 136 mmol/L Normal 136-145 [facility] Comment on above: Performed By: #### Cosmo H8, MG ####[facility] PATH[facility] [id number] [place], [place], Urea nitrogen [Mass/Vol] 29 mg/dL High 7-25 [facility] Comment on above: Performed By: #### Cosmo H8, MG ####[facility] PATH[facility] [id number] [place], [place], Basic metabolic 2000 panelon 10-26-2024 Anion gap [Moles/Vol] 13 mmol/L 10 - 20 [facility] Calcium [Mass/Vol] 8.9 mg/dL 8.6 - 10. 3 mg/dL [facility] Chloride [Moles/Vol] 101 mmol/L 98 - 10 7 mmol/L [facility] CO2 [Moles/Vol] 26 mmol/L 21 - 31 mmol/L [facility] Creatinine [Mass/Vol] 1.03 mg/dL 0.70 - 1.30 mg/dL [facility] GFR/1.73 sq M.predicted CKD-EPI (S/P/Bld) [Vol rate/Area] 81 - PINF [facility] Comment on above: 2020 CKD EPI Equatio n using Creatinine without Race Comment: Estimated glomerular filtration rate (eGFR) is calculated without a race coefficient. Values should be interpreted in the context of the patient's full clinical presentation. Reference: 1. Arsh C, Joe M, Reynaldo OSCAR, et al.. A Unifying Approach for GFR Estimation: Recommendations of the NKF-ASN Task Force on Reassessing the Inclusion of Race in Diagnosing Kidney Disease. [place] Journal of Kidney Diseases 2021;79(2):268-88.e1. 2. N Engl J Med 2020 Vol. 385 Issue 19 Pages 9312-5147 Glucose [Mass/Vol] 104 mg/dL 74 - 109 mg/dL [facility] Interpretation and review of laboratory results Abnormal [facility] Potassium [Moles/Vol] 4 mmol/L 3.5 - 5.0 mmol/L [facility] Sodium [Moles/Vol] 136 mmol/L 136 - 145 mmol/L [facility] Urea nitrogen [Mass/Vol] 29 mg/dL High 7 - 25 mg/dL [facility] CBC WITH DIFFERENTIALon 04-1 Basophils (Bld) [#/Vol] 0.07 10*3/uL 0.00 - 0.20 K/uL [facility] Basophils/100 WBC (Bld) 0.4 % NINF - 1.9 % [facility] Eosinophils (Bld) [#/Vol] 0.01 10*3/uL 0.00 - 0.70 K/uL [facility] Eosinophils/100 WBC (Bld) 0 % Low 0.1 - 4.0 % [facility] Erythrocyte distribution width (RBC) [Ratio] 15.6 % High 11.5 - 14.5 % [facility] Hematocrit (Bld) [Volume fraction] 37.4 % Low 41.0 - 53.0 % [facility] Hemoglobin (Bld) [Mass/Vol] 12.4 g/dL Low 13.9 - 16.3 g/dL [facility] Interpretation and review of laboratory results Abnormal [facility] Lymphocytes (Bld) [#/Vol] 2.3 10*3/uL 1.00 - 4.80 K/uL [facility] Lymphocytes/100 WBC (Bld) 12.9 % Low 24.0 - 44.0 % [facility] MCH (RBC) [Entitic mass] 29.1 pg 26.0 - 34.0 pg [facility] MCHC (RBC) [Mass/Vol] 33.2 g/dL 32.0 - 35.9 g/dL [facility] MCV (RBC) [Entitic vol] 88 fL 80 - 100 fL [facility] Monocytes (Bld) [#/Vol] 1.39 10*3/uL High 0.20 - 1.00 K/uL [facility] Monocytes/100 WBC (Bld) 7.8 % 2.0 - 11.0 % [facility] Neutrophils (Bld) [#/Vol] 13.98 10*3/uL High 1.50 - 8.00 K/uL [facility] Neutrophils/100 WBC (Bld) 78.8 % High 31.0 - 76.0 % [facility] Platelet mean volume (Bld) [Entitic vol] 7.4 fL Low 7.5 - 11.2 fL [facility] Platelets (Bld) [#/Vol] 306 10*3/uL 150 - 400 K/uL [facility] RBC (Bld) [#/Vol] 4.27 10*6/uL Low [facility] WBC (Bld) [#/Vol] 17.7 10*3/uL High 4.5 - 11.5 K/uL [facility] Basophils (Bld) [#/Vol] 0.07 10*3/uL Normal 0.00-0.20 [facility] Comment on above: Performed By: #### H STRP #### S PATHOLOGY LABORATORY [address] [place] [address], Basophils/100 WBC (Bld) 0.4 % Normal <=1.9 [facility] Comment on above: Performed By: #### H STRP #### S PATHOLOGY LABORATORY [address] [place] [address], Eosinophils (Bld) [#/Vol] 0.01 10*3/uL Normal 0.00-0.70 [facility] Comment on above: Performed By: #### H STRP #### S PATHOLOGY LABORATORY [address] [place], [place], Eosinophils/100 WBC (Bld) 0.0 % Low 0.1-4.0 [facility] Comment on above: Performed By: #### H STRP #### S PATHOLOGY LABORATORY [address] [place], [place], Erythrocyte distribution width (RBC) [Ratio] 15.6 % High 11.5-14.5 [facility] Comment on above: Performed By: #### H STRP #### S PATHOLOGY LABORATORY [address] [place], [place], Hematocrit (Bld) [Volume fraction] 37.4 % Low 41.0-53.0 [facility] Comment on above: Performed By: #### H STRP #### [facility] PATHOLOG[facility]AT[facility] [address] [place], [place], Hemoglobin (Bld) [Mass/Vol] 12.4 g/dL Low 13.9-16.3 [facility] Comment on above: Performed By: #### H STRP #### [facility] PATHOLOG[facility] LAB[facility]ORY [address] [place], [place], Lymphocytes (Bld) [#/Vol] 2.30 10*3/uL Normal 1.00-4.80 [facility] Comment on above: Performed By: #### H STRP #### [facility] [address] [place], [place], Lymphocytes/100 WBC (Bld) 12.9 % Low 24.0-44.0 [facility] Comment on above: Performed By: #### H STRP #### [facility] [address] [place], [place], MCH (RBC) [Entitic mass] 29.1 pg Normal 26.0-34.0 [facility] Comment on above: Performed By: #### H STRP #### S PATHOLOGY LABORATORY [address] [place], [place], MCHC (RBC) [Mass/Vol] 33.2 g/dL Normal 32.0-35.9 [facility] Comment on above: Performed By: #### H STRP #### S PATHOLOGY LABORATORY [address] [place], [place], MCV (RBC) [Entitic vol] 88 fL Normal 80-100 [facility] Comment on above: Performed By: #### H STRP #### S PATHOLOGY LABORATORY [address] [place], [place], Monocytes (Bld) [#/Vol] 1.39 10*3/uL High 0.20-1.00 [facility] Comment on above: Performed By: #### H STRP #### [facility] [address] [place], [place], Monocytes/100 WBC (Bld) 7.8 % Normal 2.0-11.0 [facility] Comment on above: Performed By: #### H STRP #### [facility] [address] [place], [place], Neutrophils (Bld) [#/Vol] 13.98 10*3/uL High 1.50-8.00 [facility] Comment on above: Performed By: #### H STRP #### [facility] [address] [place], [place], Neutrophils/100 WBC (Bld) 78.8 % High 31.0-76.0 [facility] Comment on above: Performed By: #### H STRP #### [facility] [address] [place], [place], Platelet mean volume (Bld) [Entitic vol] 7.4 fL Low 7.5-11.2 [facility] Comment on above: Performed By: #### H STRP #### [facility] [address] [place], [place], Platelets (Bld) [#/Vol] 306 10*3/uL Normal 150-400 [facility] Comment on above: Performed By: #### H STRP #### S PATHOLOGY LABORATORY [address] [place], [place], RBC (Bld) [#/Vol] 4.27 10*6/uL Low 4.50-5.90 [facility] Comment on above: Performed By: #### H STRP #### [facility] [address] [place], [place], WBC (Bld) [#/Vol] 17.7 10*3/uL High 4.5-11.5 [facility] Comment on above: Performed By: #### H STRP #### [facility] [address] [place], [place], Care Plan Noteon 10-26-2024 Drafter Apprentice Authentication Interface Message Text EXERCISE OXIMETRY: = At rest, while breathing ambient air the oxygen saturation by pulse oximetry was 95% %, and baseline HR was 74 bpm. While walking at a normal pace and breathing ambient air, oxyhemoglobin saturation fell to 86%. While walking at a normal pace, the lowest supplementary O2 necessary to keep SpO2 > 90% was 2Lpm NC. During a normal paced walk with this amount of oxygen, lowest SpO2 was 94%. Aura Wagner MD Normal [facility] MAGNESIUMon 10-26-2024 Interpretation and review of laboratory results Normal [facility] Magnesium [Mass/Vol] 2.3 mg/dL 1.9 - 2 .7 mg/dL [facility] Magnesium [Mass/Vol] 2.3 mg/dL Normal 1.9-2.7 [facility] Comment on above: Performed By: #### C H8, MG ####[facility] [id number] [place], [place], No Panel Informationon 10-26 [facility] Progress Noteson 10-26-2024 Drafter Apprentice Authentication Interface Message Text A walking pulse ox needs to be performed within 48 hours of patient being activated for discharge and the following information and statement needs to be placed in a progress note by a Physician: RA Rest ___ % , Recovery on O2 ___ Liters ___ %, RA exertion ___%. Recovery on O2 ___Liters while exerting/walking/ambu lating ___% I have discussed oxygen therapy with the patient, the patient understands and agrees with the treatment. Patients WPO must be at 88% and below in order to qualify for oxygen. After the walking pulse ox is performed, then the Physician may place the E1390 and E0431 orders for the oxygen concentrator and tanks. Discharge--> Order reconciliation--> New Order for discharge--> Enter E1390 and E0431 codes To arrange for delivery of portable tank to the bedside for transport at discharge, please call [employer] at [phone] (Available 08/02). Pt has been cleared to dc home with recs for OP Pulm Rehab. SW will follow for appropriate dc planning. EDITH NorrisA, HOSPITAL CHIEF EXECUTIVE OFFICER Inpatient Wheelchair Van Driver Normal [facility] Drafter Apprentice Authentication Interface Message Text Stepdown Unit ATTENDING NOTE AURA WAGNER MD - PIN [id number] I saw and evaluated the patient. I personally obtained the flowers and critical portions of the history and physical examination. I reviewed the resident's documentation and discussed the patient with the resident. I agree with the resident's medical decision making as documented in the resident's note. Additional findings and notation: Elis Bills is a 64 year old with PMH of COPD, severe persistent asthma (FEV1 64% FEV1/FVC 70%) , tobacco abuse, alcohol abuse (30 beers/week) TIA (P2 occlusion 2018, on plavix), GERD, HLD, lumbar laminectomy (07/2024) presenting with shortness of breath. Patient reported fever at home. Patient initially requited rescue BPAP. Patient wad admitted to SDU for Acute hypoxemic and hypercapnic respiratory failure due to COPDAE. Vitals during my assessment B.P 151/79, HR 81, RR 19, SpO2 96% on nasal cannula 5L/min, Temp afebrile Data reviewed by me Pertinent labs: CBC ~ Leucocytosis noted, Hb 12.4 BMP ~ Glucose 104, otherwise unremarkable. Imaging: Chest X ray (10/25/2024) Diffuse interstitial prominence. Findings could be related to atypical/viral pneumonia or mild edema. CTA Chest PE (10/24/2024) No CT evidence of pulmonary embolism with nondiagnostic subsegmental level. Mediastinal and bilateral hilar adenopathy, new finding ASSESSMENT/PLAN NEURO: Alcohol use disorder On CIWA protocol On Folic acid and thiamine CARDIAC: Hypertension ~ On Lisinopril. CAD ~ On aspirin and statin PULM: Acute hypoxemic/ hypercapnic respiratory failure due to COPDAE + Community acquired pneumonia ~ improved On Prednisone x 5 days Azithromycin x 5 days. COPD respiratory assessors On supplemental oxygen, goal SpO2 88-92% ID: Sepsis as evidenced by leucocytosis, tachycardia and hypoxemia due to community acquired pneumonia. On Rocephin and Azithromycin (D2/5) Follow respiratory cultures ENDO: Blood glucose 140-180 mg/dL +) Nutrition -- Regular diet +) Sedation/Analgesia -- Acetaminophen PRN +) DVT/GI prophylaxis -- Lovenox, PPI +) Lines/Catheters -- None +) Social/Goals of Care -- Spouse is NOK Code Status: DNR-CCA and DNI Aura Wagner MD Pulmonary, Critical Care and Sleep Medicine [facility] Normal [facility] Drafter Apprentice Authentication Interface Message Text [facility] Step Down Unit - H AND P Elis Bills Age [age] year old male ROOM: [place] [address] Admitted 10/24/2024 7:57 PM Hospital Day: 2 HPI Elis Bills is a 64 year old male admitted on 10/24 with a PMH of severe persistent asthma (FEV1 64% FEV1/FVC 70%) , tobacco abuse, alcohol abuse (30 beers/week) TIA (P2 occlusion 2018, on plavix), GERD, HLD, lumbar laminectomy (07/2024) presenting with shortness of breath. Started in sabianism on Wednesday, took temp and was 102. Extreme SOB on Wednesday night. Worse when laying down and with exertion. Does not wear oxygen or CPAP at home. Increased brown sputum. Also took steroids at home (Wednesday). Denies sleep apnea. recently sick at home with upper respiratory symptoms. Required Bipap in outside ED. Drinks 30 beers weekly. Last drink 4/7 pm. Denies any hx of withdrawal or seizures. Smokes 5 cigarettes daily. Has a 30+ pack year history. No other drug use. Interval History. [facility]. Will also make him Cardiology followup. Sputum culture with gram + cocci in pairs. On 2L NC, walking pulse ox today. Sodium improved 136. Requiring 4L NC this morning Leukocytosis to 17.7 (16) remains afebrile. Echo EF 80%, hyperdynamic. Hypertensive to the 160s, increased lisinopril to 10mg. CIWA - AR Score: 0 (10/26/24 0015) Alert and calm Subjective Objective Vitals: 10/26/24 0409 BP: Pulse: 80 Resp: 24 Temp: SpO2: 96% General: Uncomfortable appearing on exam, sitting at edge of bed HEENT: EOMI. Conjunctiva clear. No scleral icterus. Heart: RRR. No murmurs or rub. JVD unable to appreciate due to accessory muscle use while breathing Lungs: expiratory wheezing, increase work of breathing on nasal canula Abdomen: Soft. Non-tender. Distended. Extremities: 1+ LE edema Neuro: No focal deficits. A AND Ox3 Skin: Warm AND dry. Recent Labs 10/24/24212610/25/245110/26/24 0001 NA 134* 136 136 K 4.5 4.0 4.0 CA 9.2 9.0 8.9 MG 2.2 2.2 2.3 BUN 13 14 29* CR 0.87 0.90 1.03 EGFR 96 95 81 GLU 140* 130* 104 ANIONGAP 16 15 13 Recent Labs 10/24/24212610/25/242 10/26/24 0001 WBC 16.7* 16.0* 17.7* HGB 12.3* 12.2* 12.4* PLT 266 277 306 No results for input(s): LIPASE, BLASTS, BLASTABS, MYELOCYTES, METAMYELOCYT, TOXICGRAN, B12, METHMALCRT, FOL, FERRITIN, FE, TRANSFER, TIBC, SAT in the last 72 hours. MCV 88 RDW 15.6 [11.5-14.5] ANC N/A Recent Labs 10/24/242126 AST 16 ALT 19 ALKPHOS 94 TBIL 0.6 DBIL 0.14 Recent Labs 10/24/242126 ALBUMIN 4.2 72HR Labs - Updated 10/26/2024 6:25 AM NOTE: Does NOT include fingerstick glucose ABG: pH N/A / pCO2 N/A / PO2 N/A N/A% None found w/in last 24 hrs Hapt: N/A None found w/in last 24 hrs [36-220] LDH: N/A None found w/in last 24 hrs [50-220] Fgen: N/A None found w/in last 24 hrs [200-500] Dimer: N/A None found w/in last 24 hrs Ferritin N/A / Iron N/A No results found for requested labs within last 120 days. FELY Screen: N/A / N/A IgG / N/A C3 No results found for requested labs within last 120 days. COAG Last INR N/A PT N/A PTT N/A No results found for requested labs within last 120 days. No results found for: ANTIFXALMWHE, RISTCOF, VONWILLAG, FACTORVIII ENDO Last A1c N/A, TSH N/A (FT4 N/A) No results for input(s): A1C, TSH, FREET4, T3 in the last 72 hours. PFTs 08/20/2023 PRE-BRONCH POST-BRONCH Pre LLN Pred ULN %Pred Post %Pred %Chg SPIROMETRY FVC (L) 2.44 2.83 3.78 4.75 64 FEV1 (L) 1.70 2.17 2.94 3.66 57 FEV1/FVC 0.70 0.65 0.78 0.88 89 PEF L/s (L/sec) 5.67 6.13 8.27 10.41 68 FEF50 (L/sec) 1.60 1.66 3.79 5.91 42 FIF50 (L/sec) 3.92 FEF50/FIF50 0.41 90-100 FIVC (L) 2.62 PCQ18-30 (L/sec) 0.90 1.20 2.56 4.44 35 Time (sec) 7.48 FET PEF (sec) 0.07 MENDOZA (L) 0.07 Vol Extrap % (%) 3 CXR IMPRESSION: Diffuse interstitial prominence. Findings could be related to atypical/viral pneumonia or mild edema. Echocardiogram Summary Technically limited study. Hyperdynamic LV systolic function. The left ventricular ejection fraction (LVEF) is 80%. Normal RV systolic function. Dilated left atrium. Asymmetric left ventricular hypertrophy is present. No hemodynamically significant valve disease. Noninvasive hemodynamic assessment is consistent with a low CVP. The pulmonary artery systolic pressure could not be estimated. See above for further details. A/P Pulmonary: #AHRF #COPD Exacerbation vs asthma exacerbation #Lung nodules #Mediastinal and Hilar Lymphadenopathy # high pretest probability for T2 phenotype asthma (IgE 127, Serina 15). Abs Eos 3. PFT showing air trapping, normal TLC. Normal FEV1/FVC but low [id number]. Chest CT with multiple sub<6mm lung nodules. No mediastinal LAD. Airway wall thickening. - home: albuterol, breztri, pulmicort, singulair Dx: asthma vs COPD vs ADHF - prior echo from 201 (more content not included)... Normal [facility] BASIC METABOLIC PANELon 04-0 Anion gap [Moles/Vol] 15 mmol/L Normal 10-20 [facility] Comment on above: Performed By: #### C H8, MG #### [facility] [address] [place] [address], Calcium [Mass/Vol] 9.0 mg/dL Normal 8.6-10.3 [facility] Comment on above: Performed By: #### Cosmo H8, MG #### [facility] [address] [place] [address], Chloride [Moles/Vol] 98 mmol/L Normal 98-107 [facility] Comment on above: Performed By: #### C H8, MG #### [facility] [address] [place] [address], CO2 [Moles/Vol] 27 mmol/L Normal 21-31 [facility] Comment on above: Performed By: #### C H8, MG #### [facility] [address] [place] [address], Creatinine [Mass/Vol] 0.90 mg/dL Normal 0.70-1.30 [facility] Comment on above: Performed By: #### C H8, MG #### [facility] [address] [place] [address], ESTIMATED GFR (CKD-EPI) 95 mL/min/1.73sqm Normal >=60 [facility] Comment on above: Result Comment: 2020 CKD EPI Equation using Creatinine without Race Comment: Estimated glomerular filtration rate (eGFR) is calculated without a race coefficient. Values should be interpreted in the context of the patient's full clinical presentation. Reference: 1. Arsh C, Joe M, Reynaldo DC, et al.. A Unifying Approach for GFR Estimation: Recommendations of the NKF-ASN Task Force on Reassessing the Inclusion of Race in Diagnosing Kidney Disease. [place] Journal of Kidney Diseases 202;79(2):268-88.e1. 2. N Engl J Med 1 Vol. 385 Issue 19 Pages 0289-8355 Performed By: #### C H8, MG #### [facility] [address] [place] [address], Glucose [Mass/Vol] 130 mg/dL High 74-109 [facility] Comment on above: Performed By: #### Cosmo H8, MG #### [facility] [address] [place] [address], Potassium [Moles/Vol] 4.0 mmol/L Normal 3.5-5.0 [facility] Comment on above: Performed By: #### Cosmo H8, MG #### [facility] [address] [place] [address], Sodium [Moles/Vol] 136 mmol/L Normal 136-145 [facility] Comment on above: Performed By: #### Cosmo H8, MG #### [facility] [address] [place] [address], Urea nitrogen [Mass/Vol] 14 mg/dL Normal 7-25 [facility] Comment on above: Performed By: #### Cosmo H8, MG #### [facility] [address] [place] [address], Basic metabolic 2000 panelon 10-25-2024 Anion gap [Moles/Vol] 15 mmol/L 10 - 20 [facility] Calcium [Mass/Vol] 9 mg/dL 8.6 - 10. 3 mg/dL [facility] Chloride [Moles/Vol] 98 mmol/L 98 - 10 7 mmol/L [facility] CO2 [Moles/Vol] 27 mmol/L 21 - 31 mmol/L [facility] Creatinine [Mass/Vol] 0.9 mg/dL 0.70 - 1.30 mg/dL [facility] GFR/1.73 sq M.predicted CKD-EPI (S/P/Bld) [Vol rate/Area] 95 - PINF [facility] Comment on above: 2020 CKD EPI Equatio n using Creatinine without Race Comment: Estimated glomerular filtration rate (eGFR) is calculated without a race coefficient. Values should be interpreted in the context of the patient's full clinical presentation. Reference: 1. Arsh C, Joe M, Reynaldo DC, et al.. A Unifying Approach for GFR Estimation: Recommendations of the NKF-ASN Task Force on Reassessing the Inclusion of Race in Diagnosing Kidney Disease. [place] Journal of Kidney Diseases 202;79(2):268-88.e1. 2. N Engl J Med 2020 Vol. 385 Issue 19 Pages 9865-6485 Glucose [Mass/Vol] 130 mg/dL High 74 - 109 mg/dL [facility] Interpretation and review of laboratory results Abnormal [facility] Potassium [Moles/Vol] 4 mmol/L 3.5 - 5.0 mmol/L [facility] Sodium [Moles/Vol] 136 mmol/L 136 - 145 mmol/L [facility] Urea nitrogen [Mass/Vol] 14 mg/dL 7 - 25 mg/dL [facility] CBC WITH DIFFERENTIALon 04-0 Basophils (Bld) [#/Vol] 0.18 10*3/uL 0.00 - 0.20 K/uL [facility] Basophils/100 WBC (Bld) 1.1 % NINF - 1.9 % [facility] Eosinophils (Bld) [#/Vol] 0 10*3/uL 0.00 - 0.70 K/uL [facility] Eosinophils/100 WBC (Bld) 0 % Low 0.1 - 4.0 % [facility] Erythrocyte distribution width (RBC) [Ratio] 15.9 % High 11.5 - 14.5 % [facility] Hematocrit (Bld) [Volume fraction] 35.9 % Low 41.0 - 53.0 % [facility] Hemoglobin (Bld) [Mass/Vol] 12.2 g/dL Low 13.9 - 16.3 g/dL [facility] Interpretation and review of laboratory results Abnormal [facility] Lymphocytes (Bld) [#/Vol] 0.8 10*3/uL Low 1.00 - 4.80 K/uL [facility] Lymphocytes/100 WBC (Bld) 5 % Low 24.0 - 44.0 % [facility] MCH (RBC) [Entitic mass] 29.7 pg 26.0 - 34.0 pg [facility] MCHC (RBC) [Mass/Vol] 34 g/dL 32.0 - 35.9 g/dL [facility] MCV (RBC) [Entitic vol] 88 fL 80 - 100 fL [facility] Monocytes (Bld) [#/Vol] 0.75 10*3/uL 0.20 - 1.00 K/uL [facility] Monocytes/100 WBC (Bld) 4.7 % 2.0 - 11.0 % [facility] Neutrophils (Bld) [#/Vol] 14.28 10*3/uL High 1.50 - 8.00 K/uL [facility] Neutrophils/100 WBC (Bld) 89.2 % High 31.0 - 76.0 % [facility] Platelet mean volume (Bld) [Entitic vol] 7.5 fL 7.5 - 11.2 fL [facility] Platelets (Bld) [#/Vol] 277 10*3/uL 150 - 400 K/uL [facility] RBC (Bld) [#/Vol] 4.1 10*6/uL Low [facility] WBC (Bld) [#/Vol] 16 10*3/uL High 4.5 - 11.5 K/uL [facility] Basophils (Bld) [#/Vol] 0.18 10*3/uL Normal 0.00-0.20 [facility] Comment on above: Performed By: #### H STRP #### [facility] [address] [place] [address], Basophils/100 WBC (Bld) 1.1 % Normal <=1.9 [facility] Comment on above: Performed By: #### H STRP #### [facility] [address] [place] [address], Eosinophils (Bld) [#/Vol] 0.00 10*3/uL Normal 0.00-0.70 [facility] Comment on above: Performed By: #### H STRP #### [facility] [address] [place] [address], Eosinophils/100 WBC (Bld) 0.0 % Low 0.1-4.0 [facility] Comment on above: Performed By: #### H STRP #### [facility] [address] [place] [address], Erythrocyte distribution width (RBC) [Ratio] 15.9 % High 11.5-14.5 [facility] Comment on above: Performed By: #### H STRP #### [facility] [address] [place] [address], Hematocrit (Bld) [Volume fraction] 35.9 % Low 41.0-53.0 [facility] Comment on above: Performed By: #### H STRP #### [facility] [address] [place] [address], Hemoglobin (Bld) [Mass/Vol] 12.2 g/dL Low 13.9-16.3 [facility] Comment on above: Performed By: #### H STRP #### [facility] [address] [place] [address], Lymphocytes (Bld) [#/Vol] 0.80 10*3/uL Low 1.00-4.80 [facility] Comment on above: Performed By: #### H STRP #### [facility] [address] [place] [address], Lymphocytes/100 WBC (Bld) 5.0 % Low 24.0-44.0 [facility] Comment on above: Performed By: #### H STRP #### [facility] [address] [place] [address], MCH (RBC) [Entitic mass] 29.7 pg Normal 26.0-34.0 [facility] Comment on above: Performed By: #### H STRP #### [facility] [address] [place] [address], MCHC (RBC) [Mass/Vol] 34.0 g/dL Normal 32.0-35.9 [facility] Comment on above: Performed By: #### H STRP #### [facility] [address] [place] [address], MCV (RBC) [Entitic vol] 88 fL Normal 80-100 [facility] Comment on above: Performed By: #### H STRP #### [facility] [address] [place] [address], Monocytes (Bld) [#/Vol] 0.75 10*3/uL Normal 0.20-1.00 [facility] Comment on above: Performed By: #### H STRP #### [facility] [address] [place] [address], Monocytes/100 WBC (Bld) 4.7 % Normal 2.0-11.0 [facility] Comment on above: Performed By: #### H STRP #### [facility] [address] [place] [address], Neutrophils (Bld) [#/Vol] 14.28 10*3/uL High 1.50-8.00 [facility] Comment on above: Performed By: #### H STRP #### [facility] [address] [place] [address], Neutrophils/100 WBC (Bld) 89.2 % High 31.0-76.0 [facility] Comment on above: Performed By: #### H STRP #### [facility] [address] [place] [address], Platelet mean volume (Bld) [Entitic vol] 7.5 fL Normal 7.5-11.2 [facility] Comment on above: Performed By: #### H STRP #### [facility] [address] [place] [address], Platelets (Bld) [#/Vol] 277 10*3/uL Normal 150-400 [facility] Comment on above: Performed By: #### H STRP #### [facility] [address] [place] [address], RBC (Bld) [#/Vol] 4.10 10*6/uL Low 4.50-5.90 [facility] Comment on above: Performed By: #### H STRP #### [facility] [address], [place], WBC (Bld) [#/Vol] 16.0 10*3/uL High 4.5-11.5 [facility] Comment on above: Performed By: #### H STRP #### [facility] [address], [place], [employer] 10-25-2024 Drafter Apprentice Authentication Interface Message Text SW is aware of consult for substance use resources. Pt declines substance use issues and states he does not need resources. Rena Thorne, [facility], [facility] Inpatient Wheelchair Van Driver Normal [facility] Diabetes tracking panelOrder ed By: Deni Clark on 10-25-2024 Average glucose Estimated from glycated hemoglobin (Bld) [Mass/Vol] 117 mg/dL [facility] HbA1c (Bld) [Mass fraction] 5.7 % High 4.0 - 5.6 % [facility] Interpretation and review of laboratory results Abnormal [facility] H AND Pepe 10-25-2024 Drafter Apprentice Authentication Interface Message Text Stepdown Unit ATTENDING NOTE AURA WAGNER MD - PIN [id number] I saw and evaluated the patient. I personally obtained the flowers and critical portions of the history and physical examination. I reviewed the resident's documentation and discussed the patient with the resident. I agree with the resident's medical decision making as documented in the resident's note. This patient has a high probability of sudden, clinically significant deterioration, which requires the highest level of physician preparedness to intervene urgently. I managed/supervised life or organ supporting interventions that required frequent physician assessment. Time I spent with family or surrogate(s) is included only if the patient was incapable of providing the necessary information or participating in medical decision making. Time devoted to teaching and to any procedures I billed separately is not included. I spent 91 critical care minutes of my full attention on this patient's management and direct patient care. Of note, medical issues requiring critical care management include: RESPIRATORY FAILURE. Additional findings and notation: Elis Bills is a 64 year old with PMH of COPD, severe persistent asthma (FEV1 64% FEV1/FVC 70%) , tobacco abuse, alcohol abuse (30 beers/week) TIA (P2 occlusion 2019, on plavix), GERD, HLD, lumbar laminectomy (07/2024) presenting with shortness of breath. Patient reported fever at home. Patient initially requited rescue BPAP. Patient wad admitted to SDU for Acute hypoxemic and hypercapnic respiratory failure due to COPDAE. Vitals during my assessment B.P 151/79, HR 81, RR 19, SpO2 96% on nasal cannula 5L/min, Temp afebrile Data reviewed by me Pertinent labs: CBC ~ Leucocytosis noted, Hb 12.2 BMP ~ Glucose 130, otherwise unremarkable. Hepatic function panel ~ Unremarkable. ABG ~ Unremarkable Hs Trop ~ 51 Imaging: Chest X ray (10/25/2024) Diffuse interstitial prominence. Findings could be related to atypical/viral pneumonia or mild edema. CTA Chest PE (10/24/2024) No CT evidence of pulmonary embolism with nondiagnostic subsegmental level. Mediastinal and bilateral hilar adenopathy, new finding ASSESSMENT/PLAN NEURO: Alcohol use disorder On CIWA protocol On Folic acid and thiamine CARDIAC: Hypertension ~ On Lisinopril. CAD ~ On aspirin and statin PULM: Acute hypoxemic/ hypercapnic respiratory failure due to COPDAE + Community acquired pneumonia On Prednisone x 5 days Azithromycin x 5 days. COPD respiratory assessors On supplemental oxygen, goal SpO2 88-92% ID: Sepsis as evidenced by leucocytosis, tachycardia and hypoxemia due to community acquired pneumonia. On Rocephin and Azithromycin (D1/5) Follow respiratory cultures ENDO: Blood glucose 140-180 mg/dL +) Nutrition -- Regular diet +) Sedation/Analgesia -- Acetaminophen PRN +) DVT/GI prophylaxis -- Lovenox, PPI +) Lines/Catheters -- None +) Social/Goals of Care -- Spouse is NOK Code Status: DNR-CCA and DNI Aura Wagner MD Pulmonary, Critical Care and Sleep Medicine [facility] Normal [facility] Drafter Apprentice Authentication Interface Message Text [facility] Step Down Unit - H AND P Elis Bills Age [age] year old male ROOM: [place] [address] Admitted 10/24/2024 7:57 PM Hospital Day: 2 HISTORY OF PRESENT ILLNESS CHIEF COMPLAINT: No chief complaint on file. Elis Bills is a 64 year old male admitted on 10/24 with a PMH of COPD, severe persistent asthma (FEV1 64% FEV1/FVC 70%) , tobacco abuse, alcohol abuse (30 beers/week) TIA (P2 occlusion 2018, on plavix), GERD, HLD, lumbar laminectomy (07/2024) presenting with shortness of breath. He started to feel SOB in sabianism on Wednesday. Went home and used pulse ox that had low readings in the 80s. Used his home inhalers but they did not help much. Last night woke up at 230am with extreme shortness of breath, felt he could even try to call 911. Used albuterol and it got better but then shortness of breath came back so he called 911. Shortness of breath is worse laying down and with exertion. Sleeps at incline and can't lay flat. Endorses weight loss since back surgery in Jul. No nausea, vomiting, chest pain. He endorses worse cough with brown sputum which is not typical of him. States he was febrile to 102 at home. Had some steroids at home from prior doctor so attempted to take those Wednesday but he did not feel better. He does not wear oxygen or CPAP at home, said he's been sleep tested before and he does not have sleep apnea. recently sick at home with upper respiratory symptoms. Social Drinks 30 beers weekly: 3-4 per day; denies any prior hx of withdrawal or shakiness if he does not drink. Last drink 4/7 PM Smokes 5 cigarettes daily No other drug use ED Course: Outside ED: 180/93 pulse 80 RR 30 80% on RA placed on BIPAP for inc WOB, now on 4L. Temp 99.3 Labs: trop: 51--47 BNP 1007, Mg 1.9, BMP: Na 133 (chronic) K 4.1 Cr 0.89. WBC 18.48 Hgb 12.9 (MCV 87) Covid/Flu negative Lactate 1.8 Imaging: CT PE: No CT evidence of pulmonary embolism with nondiagnostic subsegmental level. Subsegmental patchy peripheral parenchymal changes right upper lobe axial image 141 posterior right lower lobe. Mild subsegmental parenchymal changes lateral left upper lobe. No suspicious nodular mass.. Follow-up imaging until clearance especially in view of adenopathy. Mediastinal and bilateral hilar adenopathy, new finding CXR: No acute radiographic abnormality. EKG: RBBB (known chronic) Interventions: CTX/Azithro Solumedrol x1, duonebs x4, 1L NaCl, BiPAP ROS: As noted in HPI PAST HISTORY No past medical history on file. There is no previous surgical history on file. Current Outpatient Medications Medication Instructions atorvastatin (LIPITOR) 80 mg, Oral, AT BEDTIME clopidogrel (PLAVIX) 75 mg, Oral, DAILY esomeprazole (NEXIUM) 40 mg, Oral, DAILY 30 MIN BEFORE BREAKFAST folic acid 1 mg, Oral, DAILY lisinopril (ZESTRIL) 2.5 mg, Oral, DAILY nicotine (NICODERM CQ) 21 mg, Transdermal, DAILY vitamin B-1 (THIAMINE) 100 mg, Oral, DAILY No family history on file. OBJECTIVE Vitals: 10/25/24 0415 BP: 165/93 Pulse: Resp: 18 Temp: 97.5 ???F (36.4 ???C) SpO2: 95% 16.0 12.2 / 277 / 35.9 CBC: 10/25/2024: 12:52 AM 136 98 14 / 130 4.0 27 0.90 BMP: 10/25/2024: 12:52 AM Ma.2 I/Os: Intake/Output Summary (Last 24 hours) at 10/25/2024 0653 Last data filed at 10/25/2024 0415 Gross per 24 hour Intake -- Output 950 ml Net -950 ml Change in Weight: Current value is 267.9 lb (121.499 kg) on 10/25/2024 at 0000 No other value found for comparison CURRENT MEDS: lisinopril 5 mg Daily azithromycin 250 mg Daily cefTRIAXone orderable 1,000 mg Q24H Antibiotic enoxaparin 40 mg Daily predniSONE 40 mg Daily [START ON 10/27/2024] vitamin B-1 100 mg Daily folic acid 1 mg Daily Cerovite Jr 1 Tablet Daily vitamin B-1 200 mg Daily pantoprazole 20 mg Daily 30 min before breakfast atorvastatin 80 mg At Bedtime polyethylene glycol 17 g Daily senna 8.6 mg Daily nicotine 21 mg Daily guaiFENesin 600 mg 2x Daily [MAR Hold] albuterol 2.5 mg Q4H RT [MAR Hold] ipratropium 0.5 mg Q4H RT ipratropium-albuterol 3 mL Q4H RT clopidogrel 75 mg Daily PHYSICAL EXAM: General: Uncomfortable appearing on exam, sitting at edge of bed HEENT: EOMI. Conjunctiva clear. No scleral icterus. Heart: RRR. No murmurs or rub. JVD unable to appreciate due to accessory muscle use while breathing Lungs: expiratory wheezing, increase work of breathing on nasal canula Abdomen: Soft. Non-tender. Distended. Extremities: 1+ LE edema Neuro: No focal deficits. A AND Ox3 Skin: Warm AND dry. IMAGING/OTHER: Chest x-ray was last done on 10/24/2024 Echocardiogram date: Not Found PFTs 08/20/2023 PRE-BRONCH POST-BRONCH Pre LLN Pred ULN %Pred Post %Pred %Chg SPIROMETRY FVC (L) 2.44 2.83 3.78 4.75 64 FEV1 (L) 1.70 2.17 2.94 3.66 57 FEV1/FVC 0.70 0.65 0.78 0.88 89 PEF L/s (L/sec) 5.67 6.13 8.2 (more content not included)... Normal [facility] MAGNESIUMon 10-25-2024 Interpretation and review of laboratory results Normal [facility] Magnesium [Mass/Vol] 2.2 mg/dL 1.9 - 2 .7 mg/dL [facility] Magnesium [Mass/Vol] 2.2 mg/dL Normal 1.9-2.7 [facility] Comment on above: Performed By: #### C H8, MG #### [facility] [address] [place], [place] [address], [phone] No Panel Informationon 10-25 [facility] Procedures[facility] 10-25-2024 Drafter Apprentice Authentication Interface Message Text Transthoracic Echocardiographic Report Name: SANJU GILLIS Physician: : [id number] Referring ROXIE MONTGOMERY MD Physician: Age: 64 Anatomic Pathologist: Keyona Avendano RDCS Exam Date: 10/25/2024 Fellow: 10:03 AM CVT: PCP: Gender: Male Height 175.26 cm Weight 121.1112 kg Encounter #: BSA 2.34 m2 Study Medical BMI 39.43 kg/m2 Location: Stepdown Unit Technical Fair-Poor Quality: Type of Study: TTE procedure: 2D echocardiogram, M-Mode, Doppler , Color Doppler, Contrast study. Indications for Study:Congestive heart failure and Dyspnea/SOB. Tech. Comments Patient identified by name and date of . Doctor's order(s) verified. Patient's preferred language is Uzbek . Verbal consent for left heart echo contrast was obtained after explanation of the risks (1/10,000 significant and 1/3,000 minor allergic reactions) and benefits (needed enhancement of imaging) were explained. Administration of 1 dose(s) of 1.5 ml of Definity diluted to 8.5 ml of saline was administered by Keyona Avendano RDCS . Supine BP: 134/118 mmHg Patient Status: Routine Contrast Medium: Definity. Left Ventricle Value Normal Value Normal LVIDd: 4.72 <5.7 cm Post. Wall 1.32 cm <1.2 cm cm Thickness: Septum 2.49 <1.2 cm LV FS: 40.25 % 30-40% Diastolic: cm Systolic 2.82 <4 cm LV Mass 522.52g Dimension: cm LV Mass Index: 223 <110 Women<120 g/m2 Men Left Atrium LA Dimension: 4.2 cm <3.92cm Right Cavities Ventricle RV (apical 4): 4.24 <4.3 cm cm Vessels Sinus of 4cm Valsalva: Findings/Conclusions Chambers LV Left ventricular systolic function is hyperdynamic. The left ventricular ejection fraction (LVEF) is 80% +/- 5%by the biplane summation of discs (York's rule) method. Left ventricular size is normal. Left ventricular hypertrophy is present. The LV hypertrophy involves the basal septum. LA The left atrium is enlarged. The left atrial volume index is 38 mL/m2 (normal: <35 mL/m2, mild: 35-41 mL/m2, moderate: 42-48 mL/m2, severe: >48 mL/m2). RV Normal right ventricular size and function. The tricuspid annular plane systolic excursion (TAPSE, a marker of RV systolic function) is normal at 32 mm (normal >16 mm). RA Normal right atrium. Valves AV Normal aortic valve. MV Normal mitral valve. TV Normal tricuspid valve. PV The valve could not be adequately visualized. Great Vessels Normal sinus of Valsalva. Pericardium/Pleura No evidence of a pericardial effusion. Hemodynamics Estimated RA pressure is <5 mmHg. The pulmonary artery systolic pressure could not be estimated (inadequate tricuspid regurgitation). Summary Technically limited study. Hyperdynamic LV systolic function. The left ventricular ejection fraction (LVEF) is 80%. Normal RV systolic function. Dilated left atrium. Asymmetric left ventricular hypertrophy is present. No hemodynamically significant valve disease. Noninvasive hemodynamic assessment is consistent with a low CVP. The pulmonary artery systolic pressure could not be estimated. See above for further details. Authenticated by: Electronically signed and authenticated by MIRIAM EPSTEIN MD(Interpreting physician) on 10/25/2024 11:29 AM Invalid Interpretation Code [facility] RESPIRATORY CULTURE, MISCon 10-25-2024 RESPIRATORY CULTURE, MISC MRSA: Methicillin-Resistant Staphylococcus aureus NOT detected by chromagar screen. C RESP: Isolates consistent with microorganisms encountered in the upper respiratory tract GRAM STAIN: 4+ Polymorphonuclear Leukocytes 2+ Squamous Epithelial Cells 2+ Gram Positive Cocci In Pairs Normal [facility] Comment on above: Performed By: #### C RESP ####[facility] [id number] [place], [place] [facility] ID: [id number] Author: ROSE VICTORIA RT(R) Service: Radiology Author Type: Co Op Type: [facility] Filed: 10/24/2024 11:35 Note Text: Radiology Service Progress Note DATE OF SERVICE: October 24, 2024 TIME: 11:35 AM PATIENT IDENTITY VERIFICATION COMPLETED USING TWO (2) STANDARD IDENTIFIERS: Name and Date of confirmed by patient verbally. FALL SCREENING: Has the patient had 2 falls in the last year or 1 fall with injury or currently using an Ambulatory Assistive Device (Walker, Cane, Wheelchair, Crutches, etc.)? Emergency Room Patient: Screened in ED PATIENT GENDER DATA: Assigned male at PATIENT RELEVANT IMPLANT DATA REVIEWED: Yes PATIENT PRESENTS WITH AN IMPLANTABLE OR ATTACHED PROFILE TRIMMER: No ALLERGIES: Reviewed and unchanged CONTRAST ALLERGY: NO. EXAM: CT -CONTRAST INDUCED NEPHROPATHY RISK FACTORS: Patient age > 60 years CREATININE: Creatinine Date Value Ref Range Status 10/24/2024 0.89 0.73 - 1.22 mg/dL Final 07/29/2024 0.98 0.73 - 1.22 mg/dL Final 07/14/2024 0.80 0.73 - 1.22 mg/dL Final Estimated Glomerular Filtration Rate Date Value Ref Range Status 10/24/2024 95 >=60 mL/min/1.73m? Final Comment: Estimated Glomerular Filtration Rate (eGFR) is calculated using the 2020 CKD-EPI creatinine equation. This equation utilizes serum creatinine, sex, and age as parameters. The creatinine assay has traceable calibration to isotope dilution-mass spectrometry. Refer to KDIGO guidelines for clinical interpretation. In patients with unstable renal function, e.g. those with acute kidney injury, the eGFR may not accurately reflect actual GFR. P.O.C.T. RESULTS: POC done: Yes, See Lab Tab October 24, 2024 TREATMENT: N/A PERIPHERAL IV DATA: Inpatient - refer to LDA documentation RADIOLOGY DEPARTMENT: CT; Exam(s) Completed: PE Study SIGNATURE: RT Chasity(R) PATIENT NAME: Elis Bills DATE: October 24, 2024 TIME: 11:35 AM Normal [facility] HNO ID: [id number] Author: DEVANG WATTS RT(R) Service: ? Author Type: Technologist Type: [facility] Filed: 10/24/2024 10:21 Note Text: Radiology Service Progress Note PATIENT NAME: Elis Bills DATE OF SERVICE: October 24, 2024 TIME: 10:21 AM PATIENT IDENTITY VERIFICATION COMPLETED USING TWO (2) IDENTIFIERS: Name and Date of confirmed by patient verbally. FALL SCREENING: Has the patient had 2 falls in the last year or 1 fall with injury or currently using an Ambulatory Assistive Device (Walker, Cane, Wheelchair, Crutches, etc.)? Emergency Room Patient: Screened in ED PATIENT GENDER DATA: Assigned male at PATIENT RELEVANT IMPLANT DATA REVIEWED: Not Applicable PATIENT PRESENTS WITH AN IMPLANTABLE OR ATTACHED PROFILE TRIMMER: No RADIOLOGY DEPARTMENT: General X-ray: Exam(s) Completed: Chest X-Ray PERIPHERAL IV DATA: Not applicable SIGNED BY: RT Lance(R) October 24, 2024 10:21 AM Normal [facility] BASIC METABOLIC PANELon 04-0 Anion gap [Moles/Vol] 16 mmol/L Normal 10-20 [facility] Comment on above: Performed By: #### C H8, HEPATIC, MG #### [facility] [address], [place], Calcium [Mass/Vol] 9.2 mg/dL Normal 8.6-10.3 [facility] Comment on above: Performed By: #### C H8, HEPATIC, MG #### [facility] [address], [place], Chloride [Moles/Vol] 98 mmol/L Normal 98-107 [facility] Comment on above: Performed By: #### C H8, HEPATIC, MG #### [facility] [address], [place], CO2 [Moles/Vol] 25 mmol/L Normal 21-31 [facility] Comment on above: Performed By: #### C H8, HEPATIC, MG #### [facility] [address], [place], Creatinine [Mass/Vol] 0.87 mg/dL Normal 0.70-1.30 [facility] Comment on above: Performed By: #### C H8, HEPATIC, MG #### [facility] [address], [place], ESTIMATED GFR (CKD-EPI) 96 mL/min/1.73sqm Normal >=60 [facility] Comment on above: Result Comment: 2020 CKD EPI Equation using Creatinine without Race Comment: Estimated glomerular filtration rate (eGFR) is calculated without a race coefficient. Values should be interpreted in the context of the patient's full clinical presentation. Reference: 1. Arsh C, Joe M, Reynaldo OSCAR, et al.. A Unifying Approach for GFR Estimation: Recommendations of the NKF-ASN Task Force on Reassessing the Inclusion of Race in Diagnosing Kidney Disease. [place] Journal of Kidney Diseases 2021;79(2):268-88.e1. 2. N Engl J Med 2020 Vol. 385 Issue 19 Pages 6410-1714 Performed By: #### C H8, HEPATIC, MG #### [facility] [address], [place], Glucose [Mass/Vol] 140 mg/dL High 74-109 [facility] Comment on above: Performed By: #### C H8, HEPATIC, MG #### [facility] [address] [place] [address], Potassium [Moles/Vol] 4.5 mmol/L Normal 3.5-5.0 [facility] Comment on above: Performed By: #### Cosmo H8, HEPATIC, MG #### [facility] [address], [place], Sodium [Moles/Vol] 134 mmol/L Low 136-145 [facility] Comment on above: Performed By: #### Cosmo H8, HEPATIC, MG #### [facility] [address] [place] [address], Urea nitrogen [Mass/Vol] 13 mg/dL Normal 7-25 [facility] Comment on above: Performed By: #### Cosmo H8, HEPATIC, MG #### [facility] [address] [place] [address], BLOOD GAS, ARTERIALOrdered B y: Shanekaron Finn on 10-24-2024 Base excess Calc (Bld) [Moles/Vol] 0.2 mmol/L -2.0 - 3.0 mmol/L [facility] CO2 (Bld) [Partial pressure] 41.3 mm[Hg] [facility] FIO2 4 LPM [facility] HCO3 (Bld) [Moles/Vol] 25 mmol/L 21 - 28 mmol/L [facility] Interpretation and review of laboratory results Abnormal [facility] Oxygen (Bld) [Partial pressure] 107 mm[Hg] High [facility] Oxygen gas flow Oxygen delivery system Nasal [place] [facility] pH (Bld) 7.393 [pH] 7.350 - 7.450 [facility] BLOOD GAS, ARTERIALon 2024 CR HILARIO 0.2 mmol/L Normal -2.0-3.0 [facility] Comment on above: Performed By: #### H STRP #### [facility] [address], [place], CR PCO2 41.3 mm Hg Normal 35.0-45.0 [facility] Comment on above: Performed By: #### H STRP #### [facility] [address] [place] [address], CR PHA 7.393 Normal 7.350-7.450 [facility] Comment on above: Performed By: #### H STRP #### [facility] [address] [place] [address], CR PO2 107 mm Hg High 80-100 [facility] Comment on above: Performed By: #### H STRP #### [facility] [address] [place] [address], FIO2 (CATEGORY) 4 LPM Normal [facility] Comment on above: Performed By: #### H STRP #### [facility] [address] [place] [address], HCO3 (Bld) [Moles/Vol] 25 mmol/L Normal 21-28 [facility] Comment on above: Performed By: #### H STRP #### [facility] [address] [place] [address], MODE Nasal [place]ula Normal [facility] Comment on above: Performed By: #### H STRP #### [facility] [address] [place] [address], Oxygen saturation in Blood 98.0 % Normal 95.0-99.0 [facility] Comment on above: Performed By: #### H STRP #### [facility] [address] [place] [address], Bacteria Bld Culton 10-25-19 25 Bacteria identified Cx Nom (Bld) CULTURE, BLOOD: No growth 5 days Normal [facility] Comment on above: Performed By: #### 6 00-7 #### [facility] CLIA [id number] [address] STATES OF [facility] Bacteria Spec Resp Culton Bacteria identified Respiratory culture Nom (Unsp spec) CULTURE, RESPIRATORY: Few Normal respiratory mark present GRAM STAIN: Few Mixed oral mark Moderate Polymorphonuclear leukocytes Rare Epithelial cells Abnormal [facility] Comment on above: Performed By: #### 3 2355-0 #### [facility] CLIA [id number] [address] [place] [address] [place] Basic metabolic 2000 panelon 10-24-2024 Anion gap [Moles/Vol] 16 mmol/L 10 - 20 [facility] Calcium [Mass/Vol] 9.2 mg/dL 8.6 - 10. 3 mg/dL [facility] Chloride [Moles/Vol] 98 mmol/L 98 - 10 7 mmol/L [facility] CO2 [Moles/Vol] 25 mmol/L 21 - 31 mmol/L [facility] Creatinine [Mass/Vol] 0.87 mg/dL 0.70 - 1.30 mg/dL [facility] GFR/1.73 sq M.predicted CKD-EPI (S/P/Bld) [Vol rate/Area] 96 - PINF [facility] Comment on above: 2020 CKD EPI Equatio n using Creatinine without Race Comment: Estimated glomerular filtration rate (eGFR) is calculated without a race coefficient. Values should be interpreted in the context of the patient's full clinical presentation. Reference: 1. Arsh C, Joe M, Reynaldo OSCAR, et al.. A Unifying Approach for GFR Estimation: Recommendations of the NKF-ASN Task Force on Reassessing the Inclusion of Race in Diagnosing Kidney Disease. [place] Journal of Kidney Diseases 202;79(2):268-88.e1. 2. N Engl J Med 2020 Vol. 385 Issue 19 Pages 4474-9469 Glucose [Mass/Vol] 140 mg/dL High 74 - 109 mg/dL [facility] Interpretation and review of laboratory results Abnormal [facility] Potassium [Moles/Vol] 4.5 mmol/L 3.5 - 5.0 mmol/L [facility] Sodium [Moles/Vol] 134 mmol/L Low 136 - 145 mmol/L [facility] Urea nitrogen [Mass/Vol] 13 mg/dL 7 - 25 mg/dL [facility] CBC W Auto Differential pane l (Bld)on 10-24-2024 Basophils (Bld) [#/Vol] 10*3/uL Normal <0.11 [facility] Comment on above: Order Comment: Speci men Type: BLOOD SPECIMENOrdering Facility: [facility] Address: [address], [place] [address] Performed By: #### 3 2355-0 #### [facility] CLIA [id number] [address] [place] Basophils/100 WBC (Bld) 0.1 % Normal [facility] Comment on above: Order Comment: Speci men Type: BLOOD SPECIMENOrdering Facility: [facility] Address: [facility] [place] [address] Performed By: #### 3 2355-0 #### [facility] CLIA [id number] [address] [place] Differential cell count method Nom (Bld) Auto Normal [facility] Comment on above: Order Comment: Speci men Type: BLOOD SPECIMENOrdering Facility: [facility] Address: [address] [place] [address] Performed By: #### 3 2355-0 #### [facility] CLIA [id number] [address] [place] Eosinophils (Bld) [#/Vol] 10*3/uL Normal <0.46 [facility] Comment on above: Order Comment: Speci men Type: BLOOD SPECIMENOrdering Facility: [facility] Address: [address] [place] [address] Performed By: #### 3 2355-0 #### [facility] CLIA [id number] [address] [place] Eosinophils/100 WBC (Bld) 0.0 % Normal [facility] Comment on above: Order Comment: Speci men Type: BLOOD SPECIMENOrdering Facility: [facility] Address: [address] [place] [address] Performed By: #### 3 2355-0 #### [facility] CLIA [id number] [address] [place] Erythrocyte distribution width (RBC) [Ratio] 15.6 % High 11.5-15.0 [facility] Comment on above: Order Comment: Speci men Type: BLOOD SPECIMENOrdering Facility: [facility] Address: [address] [place] [address] Performed By: #### 3 2355-0 #### [facility] CLIA [id number] [address] [place] Hematocrit (Bld) [Volume fraction] 38.9 % Low 39.0-51.0 [facility] Comment on above: Order Comment: Speci men Type: BLOOD SPECIMENOrdering Facility: [facility] Address: [address] [place] [address] Performed By: #### 3 2355-0 #### [facility] CLIA [id number] [address] [place] Hemoglobin (Bld) [Mass/Vol] 12.9 g/dL Low 13.0-17.0 [facility] Comment on above: Order Comment: Speci men Type: BLOOD SPECIMENOrdering Facility: [facility] Address: [address] [place] [address] Performed By: #### 3 2355-0 #### [facility] CLIA [id number] [address] [place] Immature granulocytes (Bld) [#/Vol] 0.03 10*3/uL Normal <0.10 [facility] Comment on above: Order Comment: Speci men Type: BLOOD SPECIMENOrdering Facility: [facility] Address: [address] [place] [address] Performed By: #### 3 2355-0 #### [facility] CLIA [id number] [address] [place] Immature granulocytes/100 WBC (Bld) 0.2 % Normal [facility] Comment on above: Order Comment: Speci men Type: BLOOD SPECIMENOrdering Facility: [facility] Address: [address] [place] [address] Performed By: #### 3 2355-0 #### [facility] CLIA [id number] [address] [place] Lymphocytes (Bld) [#/Vol] 1.08 10*3/uL Normal 1.00-4.00 [facility] Comment on above: Order Comment: Speci men Type: BLOOD SPECIMENOrdering Facility: [facility] Address: [address] [place] [address] Performed By: #### 3 2355-0 #### [facility] CLIA [id number] [address] Lymphocytes/100 WBC (Bld) 5.8 % Normal [facility] Comment on above: Order Comment: Speci men Type: BLOOD SPECIMENOrdering Facility: [facility] Address: [address] [place] [address] Performed By: #### 3 2355-0 #### [facility] CLIA [id number] [address] MCH (RBC) [Entitic mass] 29.1 pg Normal 26.0-34.0 [facility] Comment on above: Order Comment: Speci men Type: BLOOD SPECIMENOrdering Facility: [facility] Address: [address] [place] [address] Performed By: #### 3 2355-0 #### [facility] CLIA [id number] [address] [place] [facility] MCHC (RBC) [Mass/Vol] 33.2 g/dL Normal 30.5-36.0 [facility] Comment on above: Order Comment: Speci men Type: BLOOD SPECIMENOrdering Facility: [facility] Address: [address] [place] [address] Performed By: #### 3 2355-0 #### [facility] CLIA [id number] [address] [place] MCV (RBC) [Entitic vol] 87.8 fL Normal 80.0-100.0 [facility] Comment on above: Order Comment: Speci men Type: BLOOD SPECIMENOrdering Facility: [facility] Address: [address] [place] [address] Performed By: #### 3 2355-0 #### [facility] CLIA [id number] [address] [place] [address] [place] Monocytes (Bld) [#/Vol] 1.62 10*3/uL High <0.87 [facility] Comment on above: Order Comment: Speci men Type: BLOOD SPECIMENOrdering Facility: [facility] Address: [address] [place] [address] Performed By: #### 3 2355-0 #### [facility] CLIA [id number] [address] [place] Monocytes/100 WBC (Bld) 8.8 % Normal [facility] Comment on above: Order Comment: Speci men Type: BLOOD SPECIMENOrdering Facility: [facility] Address: [address] [place] [address] Performed By: #### 3 2355-0 #### [facility] CLIA [id number] [address] [place] [address] [place] Neutrophils (Bld) [#/Vol] 15.73 10*3/uL High 1.45-7.50 [facility] Comment on above: Order Comment: Speci men Type: BLOOD SPECIMENOrdering Facility: [facility] Address: [address] [place] [address] Performed By: #### 3 5-0 #### [facility] CLIA [id number] [address] [place] Neutrophils/100 WBC (Bld) 85.1 % Normal [facility] Comment on above: Order Comment: Speci men Type: BLOOD SPECIMENOrdering Facility: [facility] Address: [address] [place] [address] Performed By: #### 3 2355-0 #### [facility] CLIA [id number] [address] [place] [address] [place] Nucleated RBC (Bld) [#/Vol] Normal [facility] Comment on above: Order Comment: Speci men Type: BLOOD SPECIMENOrdering Facility: [facility] Address: [address] [place] [address] Performed By: #### 3 2355-0 #### [facility] CLIA [id number] [address] [place] Nucleated RBC/100 WBC (Bld) [Ratio] Normal [facility] Comment on above: Order Comment: Speci men Type: BLOOD SPECIMENOrdering Facility: [facility] Address: [address] [place] [address] Performed By: #### 3 2355-0 #### [facility] CLIA [id number] [address] [place] Platelet mean volume (Bld) [Entitic vol] 9.2 fL Normal 9.0-12.7 [facility] Comment on above: Order Comment: Speci men Type: BLOOD SPECIMENOrdering Facility: [facility] Address: [address] [place] [address] Performed By: #### 3 2355-0 #### [facility] CLIA [id number] [address] [place] Platelets (Bld) [#/Vol] 276 10*3/uL Normal 150-400 [facility] Comment on above: Order Comment: Speci men Type: BLOOD SPECIMENOrdering Facility: [facility] Address: [address] [place] [address] Performed By: #### 3 2355-0 #### [facility] CLIA [id number] [address] [place] RBC (Bld) [#/Vol] 4.43 10*6/uL Normal 4.20-6.00 [facility] Comment on above: Order Comment: Speci men Type: BLOOD SPECIMENOrdering Facility: [facility] Address: [address] [place] [address] Performed By: #### 3 2355-0 #### [facility] CLIA [id number] [address] [place] WBC (Bld) [#/Vol] 18.48 10*3/uL High 3.70-11.00 [facility] Comment on above: Order Comment: Speci men Type: BLOOD SPECIMENOrdering Facility: [facility] Address: [address] [place] [address] Performed By: #### 3 2355-0 #### [facility] CLIA [id number] 1 [place] [address] [place] [facility] CBC WITH DIFFERENTIALon Basophils (Bld) [#/Vol] 0.05 10*3/uL 0.00 - 0.20 K/uL [facility] Basophils/100 WBC (Bld) 0.3 % NINF - 1.9 % [facility] Eosinophils (Bld) [#/Vol] 0 10*3/uL 0.00 - 0.70 K/uL [facility] Eosinophils/100 WBC (Bld) 0 % Low 0.1 - 4.0 % [facility] Erythrocyte distribution width (RBC) [Ratio] 15.8 % High 11.5 - 14.5 % [facility] Hematocrit (Bld) [Volume fraction] 36.3 % Low 41.0 - 53.0 % [facility] Hemoglobin (Bld) [Mass/Vol] 12.3 g/dL Low 13.9 - 16.3 g/dL [facility] Interpretation and review of laboratory results Abnormal [facility] Lymphocytes (Bld) [#/Vol] 0.57 10*3/uL Low 1.00 - 4.80 K/uL [facility] Lymphocytes/100 WBC (Bld) 3.4 % Low 24.0 - 44.0 % [facility] MCH (RBC) [Entitic mass] 29.4 pg 26.0 - 34.0 pg [facility] MCHC (RBC) [Mass/Vol] 33.8 g/dL 32.0 - 35.9 g/dL [facility] MCV (RBC) [Entitic vol] 87 fL 80 - 100 fL [facility] Monocytes (Bld) [#/Vol] 0.49 10*3/uL 0.20 - 1.00 K/uL [facility] Monocytes/100 WBC (Bld) 2.9 % 2.0 - 11.0 % [facility] Neutrophils (Bld) [#/Vol] 15.64 10*3/uL High 1.50 - 8.00 K/uL [facility] Neutrophils/100 WBC (Bld) 93.4 % High 31.0 - 76.0 % [facility] Platelet mean volume (Bld) [Entitic vol] 7.5 fL 7.5 - 11.2 fL [facility] Platelets (Bld) [#/Vol] 266 10*3/uL 150 - 400 K/uL [facility] RBC (Bld) [#/Vol] 4.18 10*6/uL Low [facility] WBC (Bld) [#/Vol] 16.7 10*3/uL High 4.5 - 11.5 K/uL [facility] Basophils (Bld) [#/Vol] 0.05 10*3/uL Normal 0.00-0.20 [facility] Comment on above: Performed By: #### H STRP #### [facility] [address] [place] [address], Basophils/100 WBC (Bld) 0.3 % Normal <=1.9 [facility] Comment on above: Performed By: #### H STRP #### [facility] [address] [place] [address], Eosinophils (Bld) [#/Vol] 0.00 10*3/uL Normal 0.00-0.70 [facility] Comment on above: Performed By: #### H STRP #### [facility] [address] [place] [address], Eosinophils/100 WBC (Bld) 0.0 % Low 0.1-4.0 [facility] Comment on above: Performed By: #### H STRP #### [facility] [address] [place] [address], Erythrocyte distribution width (RBC) [Ratio] 15.8 % High 11.5-14.5 [facility] Comment on above: Performed By: #### H STRP #### [facility] [address] [place] [address], Hematocrit (Bld) [Volume fraction] 36.3 % Low 41.0-53.0 [facility] Comment on above: Performed By: #### H STRP #### [facility] [address] [place] [address], Hemoglobin (Bld) [Mass/Vol] 12.3 g/dL Low 13.9-16.3 [facility] Comment on above: Performed By: #### H STRP #### [facility] [address], [place], Lymphocytes (Bld) [#/Vol] 0.57 10*3/uL Low 1.00-4.80 [facility] Comment on above: Performed By: #### H STRP #### [facility] [address], [place], Lymphocytes/100 WBC (Bld) 3.4 % Low 24.0-44.0 [facility] Comment on above: Performed By: #### H STRP #### [facility] [address], [place], MCH (RBC) [Entitic mass] 29.4 pg Normal 26.0-34.0 [facility] Comment on above: Performed By: #### H STRP #### [facility] [address], [place], MCHC (RBC) [Mass/Vol] 33.8 g/dL Normal 32.0-35.9 [facility] Comment on above: Performed By: #### H STRP #### [facility] [address], [place], MCV (RBC) [Entitic vol] 87 fL Normal 80-100 [facility] Comment on above: Performed By: #### H STRP #### [facility] [address] [place], [place], Monocytes (Bld) [#/Vol] 0.49 10*3/uL Normal 0.20-1.00 [facility] Comment on above: Performed By: #### H STRP #### [facility] [address] [place], [place], Monocytes/100 WBC (Bld) 2.9 % Normal 2.0-11.0 [facility] Comment on above: Performed By: #### H STRP #### [facility] [address] [place], [place], Neutrophils (Bld) [#/Vol] 15.64 10*3/uL High 1.50-8.00 [facility] Comment on above: Performed By: #### H STRP #### [facility] [address] [place], [place], Neutrophils/100 WBC (Bld) 93.4 % High 31.0-76.0 [facility] Comment on above: Performed By: #### H STRP #### [facility] [address] [place], [place], Platelet mean volume (Bld) [Entitic vol] 7.5 fL Normal 7.5-11.2 [facility] Comment on above: Performed By: #### H STRP #### [facility] [address] [place], [place], Platelets (Bld) [#/Vol] 266 10*3/uL Normal 150-400 [facility] Comment on above: Performed By: #### H STRP #### [facility] [address] [place] [address], RBC (Bld) [#/Vol] 4.18 10*6/uL Low 4.50-5.90 [facility] Comment on above: Performed By: #### H STRP #### [facility] [address] [place], [place], WBC (Bld) [#/Vol] 16.7 10*3/uL High 4.5-11.5 [facility] Comment on above: Performed By: #### H STRP #### [facility] [address], [place], CTA CHEST (NON GATED) W IVCO N PEon 10-24-2024 CTA CHEST (NON GATED) W IVCON PE * * *Final Report* * * DATE OF EXAM: Oct 24 2024 11:36AM [facility] 0564 - CTA CHEST (NON GATED) W IVCON PE / PROCEDURE REASON: Pulmonary embolism (PE) suspected, high prob * * * * Physician Interpretation * * * * EXAMINATION: CHEST CTA (NON GATED) WITH CONTRAST (PULMONARY EMBOLISM PROTOCOL) Clinical History: History of pneumonia Technique: Spiral CT acquisition of the chest from the thoracic inlet to the upper abdomen following IV contrast. Axial 1 and 3 mm thick slices plus coronal and sagittal reformatted images. MQ: CTCP_5 Contrast: 100 mL Omnipaque [address] Radiation dose: Integrated Dose-length product (DLP) for this visit = 723.06 mGy*cm CT Dose Reduction Employed: Automated exposure control(AEC) and iterative recon CTA: Post-processed images (Maximum intensity Projection (MIP), Volume-rendered (VR), or Surface shaded display images (SSD) were created, reviewed and archived. Comparison: 06/08/[address] RESULT: Limitations: Suboptimal study due to respiratory motion with or without non-ideal pulmonary arterial enhancement. Evaluation for thromboembolic disease: - Right heart chambers: No thromboembolic disease. - Main pulmonary arteries: No thromboembolic disease. - Lobar pulmonary arteries: No thromboembolic disease. - Segmental pulmonary arteries: No thromboembolic disease. - Subsegmental pulmonary arteries: Nondiagnostic - Additional pulmonary artery findings: The main pulmonary artery is normal in caliber. Lines, tubes, and devices: None. Lung parenchyma and airways: Subsegmental patchy peripheral parenchymal changes right upper lobe axial image 141 posterior right lower lobe. Mild subsegmental parenchymal changes lateral left upper lobe. No suspicious nodular mass.. The central airways are patent. Pleural space: No pleural effusion. No pleural thickening. Lower neck, lymph nodes, and mediastinum: The imaged thyroid gland is normal. Mediastinal and bilateral hilar adenopathy, new finding Heart, pericardium, and thoracic vessels: The thoracic aorta is normal in caliber. The cardiac chambers are enlarged in size. No coronary artery atherosclerotic calcifications are noted, although the study is not optimized for coronary assessment. No pericardial effusion or thickening. Bones and soft tissues: No destructive bone lesion. Chest wall is unremarkable. Upper abdomen: No abnormality in the imaged upper abdomen. Localizer images: IMPRESSION: No CT evidence of pulmonary embolism with nondiagnostic subsegmental level. Subsegmental patchy peripheral parenchymal changes right upper lobe axial image 141 posterior right lower lobe. Mild subsegmental parenchymal changes lateral left upper lobe. No suspicious nodular mass.. Follow-up imaging until clearance especially in view of adenopathy Mediastinal and bilateral hilar adenopathy, new finding Package Winder: YAIR Transcribe Date/Time: Oct 24 2024 11:51A Dictated by : AFTAB MARTINEZ MD This examination was interpreted and the report reviewed and electronically signed by: AFTAB MARTINEZ MD on Oct 24 2024 11:56AM EST [id number] Normal [facility] Comprehensive metabolic 2000 panelon 10-24-2024 Albumin [Mass/Vol] 4.1 g/dL Normal 3.9-4.9 [facility] Comment on above: Order Comment: Speci men Type: BLOOD SPECIMENOrdering Facility: [facility] Address: [address] [place] [address] Performed By: #### 2 4323-8, 54411-1, 21545-3 ####[facility] LABCLIA [id number] [facility] [address] [place] ALP [Catalytic activity/Vol] 115 U/L High 38-113 [facility] Comment on above: Order Comment: Speci men Type: BLOOD SPECIMENOrdering Facility: [facility] Address: [address] [place] [address] Performed By: #### 2 4323-8, 11218-9, 30237-7 ####[facility] [id number] [facility] [address] [place] ALT With P-5'-P [Catalytic activity/Vol] 19 U/L Normal 10-54 [facility] Comment on above: Order Comment: Speci men Type: BLOOD SPECIMENOrdering Facility: [facility] Address: [address] [place] [address] Performed By: #### 2 4323-8, 86175-0, 84730-9 ####[facility] LABCLIA [id number] [facility] [place] [address] [place] Anion gap [Moles/Vol] 14 mmol/L Normal 8-15 [facility] Comment on above: Order Comment: Speci men Type: BLOOD SPECIMENOrdering Facility: [facility] Address: [address] [place] [address] Performed By: #### 2 4323-8, 70974-5, 99140-8 ####[facility] LABCLIA [id number] [facility] [address] [place] AST With P-5'-P [Catalytic activity/Vol] 16 U/L Normal 14-40 [facility] Comment on above: Order Comment: Speci men Type: BLOOD SPECIMENOrdering Facility: [facility] Address: [address] [place] [address] Performed By: #### 2 4323-8, 16667-4, 02083-3 ####[facility] LABCLIA [id number] [place] [address] [place] Bilirubin [Mass/Vol] 0.8 mg/dL Normal 0.2-1.3 [facility] Comment on above: Order Comment: Speci men Type: BLOOD SPECIMENOrdering Facility: [facility] Address: [address] [place] [address] Performed By: #### 2 4323-8, 74087-7, 81633-2 ####[facility] LABCLIA [id number] [facility] [address] [place] Calcium [Mass/Vol] 9.5 mg/dL Normal 8.5-10.2 [facility] Comment on above: Order Comment: Speci men Type: BLOOD SPECIMENOrdering Facility: [facility] Address: [address] [place] [address] Performed By: #### 2 4323-8, 65060-6, 98976-1 ####[facility] LABCLIA [id number] [facility] [address] [place] Chloride [Moles/Vol] 96 mmol/L Low 98-107 [facility] Comment on above: Order Comment: Speci men Type: BLOOD SPECIMENOrdering Facility: [facility] Address: [address] [place] [address] Performed By: #### 2 4323-8, 68797-3, 18154-5 ####[facility] LABCLIA [id number] [place] [address] [place] CO2 [Moles/Vol] 23 mmol/L Normal 22-30 [facility] Comment on above: Order Comment: Speci men Type: BLOOD SPECIMENOrdering Facility: [facility] Address: [address] [place] [address] Performed By: #### 2 4323-8, 81217-6, 31772-2 ####[facility] LABCLIA [id number] [place] [address] [place] Creatinine [Mass/Vol] 0.89 mg/dL Normal 0.73-1.22 [facility] Comment on above: Order Comment: Speci men Type: BLOOD SPECIMENOrdering Facility: [facility] Address: [address] [place] [address] Performed By: #### 2 4323-8, , 09383-5 ####[facility] LABCLIA [id number] [place] [address] [place] Creatinine and Glomerular filtration rate.predicted panel (S/P/Bld) 95 mL/min/1.73m??? Normal >=60 [facility] Comment on above: Order Comment: Speci [facility] Type: BLOOD SPECIMENOrdering Facility: [facility] Address: [address] [place] [address] Result Comment: Lala mated Glomerular Filtration Rate (eGFR) is calculated using the 2020 CKD-EPI creatinine equation. This equation utilizes serum creatinine, sex, and age as parameters. The creatinine assay has traceable calibration to isotope dilution-mass spectrometry. Refer to KDIGO guidelines for clinical interpretation. In patients with unstable renal function, e.g. those with acute kidney injury, the eGFR may not accurately reflect actual GFR. Performed By: #### 2 4323-8, 18191-5, 79996-6 ####[facility] LABCLIA [id number] [place] [address] [place] Glucose [Mass/Vol] 117 mg/dL High 74-99 [facility] Comment on above: Order Comment: Speci men Type: BLOOD SPECIMENOrdering Facility: [facility] Address: [address] [place] [address] Result Comment: The [place] Diabetes Association (ADA) provides guidance for cutoff values for fasting glucose and random glucose. The ADA defines fasting as no caloric intake for at least 8 hours. Fasting plasma glucose results between 100 to 125 mg/dL indicate increased risk for diabetes (prediabetes). Fasting plasma glucose results greater than or equal to 126 mg/dL meet the criteria for diagnosis of diabetes. In the absence of unequivocal hyperglycemia, results should be confirmed by repeat testing. In a patient with classic symptoms of hyperglycemia or hyperglycemic crisis, random plasma glucose results greater than or equal to 200 mg/dL meet the criteria for diagnosis of diabetes. Reference: Standards of Medical Care in Diabetes 2016, [place] [employer] Association. Diabetes Care. 2016.39(Suppl 1). Performed By: #### 2 4323-8, 81055-5, 77870-2 ####[facility] LABCLIA [id number] [place] [address] [place] Potassium [Moles/Vol] 4.1 mmol/L Normal 3.7-5.1 [facility] Comment on above: Order Comment: Speci men Type: BLOOD SPECIMENOrdering Facility: [facility] Address: [address] [place] [address] Performed By: #### 2 4323-8, 78388-7, 26158-0 ####[facility] LABCLIA [id number] [place] [address] [place] Protein [Mass/Vol] 7.5 g/dL Normal 6.3-8.0 [facility] Comment on above: Order Comment: Speci men Type: BLOOD SPECIMENOrdering Facility: [facility] Address: [address] [id number] Performed By: #### 2 4323-8, 63085-3, 74666-7 ####[facility] LABCLIA [id number] [place] [address] [place] Sodium [Moles/Vol] 133 mmol/L Low 136-144 [facility] Comment on above: Order Comment: Karthikeyani men Type: BLOOD SPECIMENOrdering Facility: [facility] Address: [address] [place] [address] Performed By: #### 2 4323-8, 17317-0, 02489-4 ####[facility] LABCL[facility] [id number] [place] [address] [place] [facility] Urea nitrogen [Mass/Vol] 13 mg/dL Normal 9-24 [facility] Comment on above: Order Comment: Speci men Type: BLOOD SPECIMENOrdering Facility: [facility] Address: [address] [place] [address] Performed By: #### 2 4323-8, 77824-2, 50222-6 ####[facility] LABCLIA [id number] [place] [address] [facility] ECG COMPLETEon 10-24-2024 ECG COMPLETE Ventricular Rate : 9 3 BPM Atrial Rate : 93 BPM P-R Interval : 134 ms QRS Duration : 122 ms Q-T Interval : 388 ms QTC Calculation(Bazett) : 482 ms Calculated P [place] : 45 degrees Calculated R [place] : 71 degrees Calculated T [place] : 26 degrees SINUS RHYTHM WITH OCCASIONAL PREMATURE VENTRICULAR COMPLEXES RIGHT BUNDLE BRANCH BLOCK ABNORMAL ECG WHEN COMPARED WITH ECG OF 14-Jul-2024 13:13, PREMATURE VENTRICULAR COMPLEXES ARE NOW PRESENT Confirmed by MD SUAREZ VINAYAK ([id number]) on 10/25/2024 2:19:53 PM NAME : ELIS BILLS PID : [id number] : 1960 Gender : Male Race : ORD : [id number] Procedure Date : Oct 24 2024 09:16:43 Edit Date : Oct 25 2024 14:19:54 Diagnosis: SINUS RHYTHM WITH OCCASIONAL PREMATURE VENTRICULAR COMPLEXES RIGHT BUNDLE BRANCH BLOCK ABNORMAL ECG WHEN COMPARED WITH ECG OF 14-Jul-2024 13:13, PREMATURE VENTRICULAR COMPLEXES ARE NOW PRESENT Confirmed by MD SUAREZ VINAYAK ([id number]) on 10/25/2024 2:19:53 PM Test Reason : Chest Pain Location : 191 : [facility] ED Overread By : MD SUAREZ VINAYAK Edited By : MD SUAREZ VINAYAK Referred By : , Acquired by : DAREN RUCKER [facility] ED NOTEon 10-24-2024 ED NOTE HNO ID: [id number] Author: TINCHER, JORGE, RN Service: Nursing Author Type: Registered Nurse Type: ED Notes Filed: 10/24/2024 18:22 Note Text: Patient leaves ED with [facility]. [facility] ED NOTE HNO ID: [id number] Author: JORGE JONES RN Service: Nursing Author Type: Registered Nurse Type: ED Notes Filed: 10/24/2024 18:15 Note Text: at bedside with patient and EMS. [facility] ED NOTE HNO ID: [id number] Author: JORGE JONES RN Service: Nursing Author Type: Registered Nurse Type: ED Notes Filed: 10/24/2024 18:14 Note Text: [facility] remains in room with patient on their monitor. They are transferring patient to EMS BiPAP. [facility] ED NOTE HNO ID: [id number] Author: JORGE JONES RN Service: Nursing Author Type: Registered Nurse Type: ED Notes Filed: 10/24/2024 16:52 Note Text: [facility] ETA 45-60 minutes [facility] ED NOTE HNO ID: [id number] Author: YOVANY JULIEN RN Service: ? Author Type: Registered Nurse Type: ED Notes Filed: 10/24/2024 16:51 Note Text: Bed assignment [address] 412 Report [phone] [facility] ED NOTE HNO ID: [id number] Author: JORGE JONES RN Service: Nursing Author Type: Registered Nurse Type: ED Notes Filed: 10/24/2024 16:20 Note Text: Patient removed from bi pap for a demanded break. Nasal canula at 6L applied. aware. Respiratory therapy remains at bedside during the break from BiPap. [facility] ED NOTE HNO ID: [id number] Author: JORGE JONES RN Service: Nursing Author Type: Registered Nurse Type: ED Notes Filed: 10/24/2024 14:19 Note Text: BiPAP removed per patient demands. Nasal Canula reapplied. [facility] ED NOTE HNO ID: [id number] Author: JORGE JONES RN Service: Nursing Author Type: Registered Nurse Type: ED Notes Filed: 10/24/2024 13:50 Note Text: Patient has asked twice to have BiPap removed. This RN discussed patients request with and Respiratory therapy. They will discuss with patient as well as this RN. [facility] ED NOTE HNO ID: [id number] Author: JORGE JONES, RN Service: Nursing Author Type: Registered Nurse Type: ED Notes Filed: 10/24/2024 13:35 Note Text: accepts patient at [facility]. Will call back with bed assignment. [facility] ED NOTE HNO ID: [id number] Author: JORGE JONES, RN Service: Nursing Author Type: Registered Nurse Type: ED Notes Filed: 10/24/2024 09:29 Note Text: Don presents with complaints of SOB. Wednesday he started to feel SOB during sabianism with activity. He developed a fever (102f) and his work of breathing did not improve. It has progressively continued to worsen. His cough has increased and feelsdeeper than usual. His phlegm has remained clear. He has a history of COPD and has been using his albuterol inhaler at least 8 times daily and taking nebulizer treatments 3 times daily. His last treatments were at 0500 today and he used budesonide and albuterol. Denies chest pain, palpations or leg edema. His spouse has had ear pain and congestion. [facility] ED NOTE HNO ID: [id number] Author: JORGE JONES RN Service: Nursing Author Type: Registered Nurse Type: ED Notes Filed: 10/24/2024 18:09 Note Text: EMS AT BEDSIDE [facility] ED PROV NOTEon 10-24-2024 ED PROV NOTE HNO ID: [id number] Author: BRIAN ANGLIN MD Service: Emergency Medicine Author Type: Physician Type: ED Provider Notes Filed: 10/24/2024 15:34 Note Text: ED Provider Note Patient Name: Elis Bills : 1960 SERVICE DATE: 10/24/24 History Patient presents with: Shortness of Breath This is a 64-year-old male patient, long-term smoker, EtOH use, hypertension, obese, COPD, sleep apnea, brought in to the emergency department with his , over cough congestion difficulty in breathing since the weekend. Patient's symptoms started on Wednesday and gradually have progressed. Patient had a fever of 102 on Wednesday and none currently. Patient's was sick with an upper respiratory, sinus infection. Patient has not recently taken antibiotics. Patient is using his inhaler with mild improvement last dose was approximately 5 AM this morning. No history of PE, DVT, cardiac disease. Patient's symptoms worsened with short distance exertion, even going to the restroom. Patient has a home pulse oximeter he notes values are in the mid to high 80s with his baseline 93 to 94%. Shortness of Breath Severity: Moderate Onset quality: Gradual Duration: 3 days Chronicity: New Context: URI and weather changes Relieved by: Inhaler and rest Worsened by: Movement and exertion Associated symptoms: cough and sputum production Associated symptoms: no chest pain and no syncope Risk factors: alcohol use and tobacco use Risk factors: no family hx of DVT, no hx of PE/DVT, no prolonged immobilization and no recent surgery PAST MEDICAL HISTORY Diagnosis Date - COPD (chronic obstructive pulmonary disease) (HCC) - Hypercholesteremia - Lung nodules - Spinal stenosis of lumbar region with neurogenic claudication - Stroke (HCC) - Unspecified right bundle-branch block PAST SURGICAL HISTORY Procedure Laterality Date - BACK SURGERY HX 07/28/2024 L1 decompression laminectomy - PILONIDAL CYST/SINUS EXCISION - TOTAL HIP REPLACEMENT Bilateral FAMILY HISTORY Problem Relation Age of Onset - No Known Problems Mother - Leukemia Father Social History Tobacco Use - Smoking status: Every Day Current packs/day: 0.50 Types: Cigarettes - Smokeless tobacco: Never Vaping Use - Vaping status: Never Used Substance and Sexual Activity - Alcohol use: Yes Comment: 30 cans beer per week - Drug use: Never - Sexual activity: Not on file ALLERGIES Allergen Reactions - Penicillins Other: See Comments Respiratory distress as a baby - Daliresp [Roflumila* Rash Review of Systems Respiratory: Positive for cough, sputum production and shortness of breath. Cardiovascular: Negative for chest pain and syncope. All other systems reviewed and are negative. Physical Exam Vitals [10/24/24 0904] BP Pulse Temp Temp src Resp SpO2 Weight Height 157/87 (!) 107 37.3 ?C (99.1 ?F) Temporal Art (!) 40 (!) 91 % 122.9 kg (271 lb) -- Physical Exam Vitals and nursing note reviewed. Constitutional: General: He is not in acute distress. Appearance: Normal appearance. He is not ill-appearing or toxic-appearing. HENT: Head: Normocephalic and atraumatic. Mouth/Throat: Mouth: Mucous membranes are moist. Pharynx: Oropharynx is clear. No pharyngeal swelling or oropharyngeal exudate. Eyes: General: Right eye: No discharge. Left eye: No discharge. Neck: Thyroid: No thyromegaly. Vascular: No JVD. Trachea: No tracheal deviation. Cardiovascular: Rate and Rhythm: Normal rate and regular rhythm. Pulmonary: Effort: No respiratory distress. Breath sounds: Decreased breath sounds and rhonchi present. Chest: Chest wall: No mass or tenderness. Abdominal: Palpations: Abdomen is soft. Comments: Soft obese abdomen, without focal abdominal tenderness, no rebound or guarding, the abdomen is tympanic however Musculoskeletal: Cervical back: Normal range of motion. Right lower leg: No tenderness. No edema. Left lower leg: No tenderness. No edema. Lymphadenopathy: Cervical: No cervical adenopathy. Skin: General: Skin is warm and dry. Neurological: General: No focal deficit present. Mental Status: He is alert and oriented to person, place, and time. Mental status is at baseline. Psychiatric: Mood and Affect: Mood normal. Behavior: Behavior normal. Diagnostic Testing ED Labs Ordered and Reviewed - No data to display Procedures ED Course / Clinical Impression Clinical Impressions as of 10/24/24 1534 Respiratory distress Hypoxia Community acquired pneumonia of right lower lobe of lung Elevated troponin MDM / Disposition / Plan 64-year-old male patient, long-term smoker, past history of COPD, hypertension, previous CVA, presents to the emergency room with his , for concerns over cough congestion difficulty in breathing worsening since Wednesday. Patient's was recently sick with upper respiratory, sinus infection symptoms. Pat (more content not included)... Normal [facility] HEMOGLOBIN A1Con 10-24-2024 Glucose [Mass/Vol] 117 mg/dL Normal [facility] Comment on above: Performed By: #### H STRP #### [facility] [address] [place] [address], [id number] HbA1c (Bld) [Mass fraction] 5.7 % High 4.0-5.6 [facility] Comment on above: Performed By: #### H STRP #### [facility] [address] [place] [address], HEPATIC FUNCTION PANELon Albumin [Mass/Vol] 4.2 g/dL 3.5 - 5.7 g/dL [facility] ALP [Catalytic activity/Vol] 94 U/L [facility] ALT [Catalytic activity/Vol] 19 U/L [facility] AST [Catalytic activity/Vol] 16 U/L [facility] Bilirubin [Mass/Vol] 0.6 mg/dL 0.3 - 1 .0 mg/dL [facility] Bilirubin.direct [Mass/Vol] 0.14 mg/dL 0.03 - 0.18 mg/dL [facility] Protein [Mass/Vol] 7.1 g/dL 6.0 - 8.3 g/dL [facility] Albumin [Mass/Vol] 4.2 g/dL Normal 3.5-5.7 [facility] Comment on above: Performed By: #### Cosmo Roa, HEPATIC, MG #### [facility] [address] [place] [address], ALK 94 IU/L Normal 34-104 [facility] Comment on above: Performed By: #### Cosmo Dunbar8, HEPATIC, MG #### [facility] [address] [place] [address], ALT [Catalytic activity/Vol] 19 U/L Normal 7-52 [facility] Comment on above: Performed By: #### Cosmo HRosi, HEPATIC, MG #### [facility] [address] [place] [address], AST [Catalytic activity/Vol] 16 U/L Normal 13-39 [facility] Comment on above: Performed By: #### Cosmo H8, HEPATIC, MG #### [facility] [address] [place] [address], Bilirubin [Mass/Vol] 0.6 mg/dL Normal 0.3-1.0 [facility] Comment on above: Performed By: #### Cosmo H8, HEPATIC, MG #### [facility] [address] [place] [address], Bilirubin.direct [Mass/Vol] 0.14 mg/dL Normal 0.03-0.18 [facility] Comment on above: Performed By: #### Cosmo H8, HEPATIC, MG #### [facility] [address], [place], Protein [Mass/Vol] 7.1 g/dL Normal 6.0-8.3 [facility] Comment on above: Performed By: #### Cosmo H8, HEPATIC, MG #### [facility] [address], [place], HIGH SENSITIVITY TROPONIN T (INITIAL)on 10-24-2024 Troponin T.cardiac High sensitivity method [Mass/Vol] 51 ng/L High <12 [facility] Comment on above: Order Comment: Speci men Type: BLOOD SPECIMENOrdering Facility: [facility] Address: [address] [place] [address] Performed By: #### L [id number] ####[facility] LABCLIA [id number] [address] HIGH SENSITIVITY TROPONIN T (SECOND)on 10-24-2024 Troponin T.cardiac High sensitivity method [Mass/Vol] 47 ng/L High <12 [facility] Comment on above: Order Comment: Speci men Type: BLOOD SPECIMENOrdering Facility: [facility] Address: [address] [place] [address] Performed By: #### L [id number] ####[facility] LABCLIA [id number] [address] HIGH SENSITIVITY TROPONIN T (THIRD) 3 HRS AFTER INITIALon 10-24-2024 Troponin T.cardiac High sensitivity method [Mass/Vol] 34 ng/L High <12 [facility] Comment on above: Order Comment: Speci men Type: BLOOD SPECIMENOrdering Facility: [facility] Address: [address] [place] [address] Performed By: #### 3 2355-0 #### [facility] CLIA [id number] [place] Lactate (Bld) [Moles/Vol]on 10-24-2024 Lactate [Moles/Vol] 1.8 mmol/L Normal 0.5-2.2 [facility] Comment on above: Order Comment: Speci brian Type: BLOOD SPECIMENOrdering Facility: [facility] Address: [address] [place] [address] Performed By: #### 3 2693-4 ####[facility] LABCLIA [id number] [place] [address] [facility] MAGNESIUMon 10-24-2024 Magnesium [Mass/Vol] 2.2 mg/dL 1.9 - 2 .7 mg/dL [facility] Magnesium [Mass/Vol] 2.2 mg/dL Normal 1.9-2.7 [facility] Comment on above: Performed By: #### C H8, HEPATIC, MG #### [facility] [address] [place] [address], Magnesium SerPl-mCncon 10-24 Magnesium [Mass/Vol] 1.9 mg/dL Normal 1.7-2.3 [facility] Comment on above: Order Comment: Speci men Type: BLOOD SPECIMENOrdering Facility: [facility] Address: [address] [place] [address] Performed By: #### 2 4323-8, 52231-1, 52842-4 ####[facility] LABCL[facility] [id number] [place] [id number] [facility] NT-proBNP SerPl-mCncon 10-24 Natriuretic peptide.B prohormone N-Terminal [Mass/Vol] 1007 pg/mL High <125 [facility] Comment on above: Order Comment: Speci men Type: BLOOD SPECIMENOrdering Facility: 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 Subjective: HPI: Elis Bills is a 64 year old male with PMH of severe persistent asthma, COPD, TUD (5 cig/dsy), AUD (30 beers/week), HTN, HLD, GERD, RUSTAM, spinal stenosis s/p lumbar decompression laminectomy 07/2023, and CVA who presented on 10/24/24 with dyspnea, cough, congestion, and febrile episode (T 102F) that began 3 days prior to arrival. Around a sick contact ( with URI/sinusitis). His resp symptoms worse with exertion. Found to be tachypneic and hypoxic to 80s. Started on BiPAP. CXR unremarkable, CT with inflammatory changes. No evidence of PE. Treated with duo-nebs. Accepted to medical SDU for AHRF. Presented to SDU with tachypnea and moderate resp distress. Endorsed brown sputum production, dyspnea, and worsening cough. Dyspnea worse with exertion. Noted some weight gain recently. Last drink last night. Smokes daily. DNR-DNI. Objective: Vitals: Temp Data Unavailable, HR Data Unavailable, BP Data Unavailable , RR Data Unavailable, SpO2 97% on 6L, Weight 0 lbs Pertinent Exam Findings: General: patient in NAD HENT Normal mucous membranes Eyes PERRLA. EOM intact. No conjunctival injection Lungs b/L expiratory wheezing. Decreased breathe sounds. No crackles. Heart RRR. No murmurs, JVD difficult to assess Abdomen Soft, nondistended, nontender and without rebound. Extremities Pulses 2+ bilaterally radially. 1+ pitting edema b/l Neuro ANOx3, No focal deficits. No asterixis. Strength symmetrical in bilateral UE/LE Skin No erythema, jaundice, rash. Patient is dry and warm. Pertinent Labs/Imaging: - WBC 18, Hgb 12.9 - Covid/flu negative - BMP unremarkable - BNP 1007 - Trop 51 -> 47 - EKG: SR, RBBB, PVCs - CXR: no acute abnormality - CTA: no evidence of PE, subsegmental patchy peripheral parenchymal changes RUL, RLL. Mediastinal and b.L hilar adenopathy. ED Intervention: - Duo-nebs - IV solu-medrol - IVF bolus 1L - Azithromycin, CTX - Ativan Assessment AND Plan: Elis Bills is a 64 year old male with PMH of severe persistent asthma, TUD, AUD, HTN, HLD, GERD, RUSTAM, spinal stenosis s/p lumbar decompression laminectomy 07/2023, and CVA who presented on 10/24/24 with dyspnea, cough, congestion, and febrile episode (T 102F) that began 3 days prior to arrival. Admitted due to AHRF likely 2/2 copd exacerbation, requiring BiPAP. #AHRF #COPD Exacerbation #CAP? #HFpEF? (Exertional dyspnea, appears fluid overloaded) Plan: - Prednisone x5 days - CTX, azithro - Resp assessors, BPH - ABG normal - Wean off BiPAP - IV lasix 20 - ECHO #Chronic Medical Problems - continue statin, lisinopril, PPI - continue plavix for TIA - CIWA for AUD, thiamine, FA, cerovite - nicotine patch Remainder of plan per international affairs vice president note. Raji Curran MD Internal Medicine, PGY-3 Available via [employer] Normal [facility] RED/YELLOW TOP TUBE, URINEon 10-24-2024 Extra Tube Done [facility] URINALYSISon 10-24-2024 Appearance (U) Clear Clear [facility] Bilirubin Ql (U) Negative Negative [facility] Color (U) Yellow Colorless [facility] Glucose Auto test strip (U) [Mass/Vol] Negative Negative mg/dL [facility] Hemoglobin Ql (U) Trace Abnormal Negative [facility] Interpretation and review of laboratory results Abnormal [facility] Ketones Ql (U) Negative Negative mg/dL [facility] Leukocyte esterase Test strip Ql (U) Negative Negative [facility] Nitrite Ql (U) Negative Negative [facility] pH (U) 6.5 [pH] 5.0 - 8.0 [facility] Protein (U) [Mass/Vol] 70 mg/dL Abnormal Negative [facility] Specific gravity (U) [Rel density] 1.036 High NINF - 1.030 [facility] Urobilinogen Qn (U) Negative Negative mg/dL [facility] WBC (U) [#/Vol] 0-2 [facility] WBC LM.HPF (Urine sed) [#/Area] 0-2 [facility] A negative leukocyte esterase AND negative nitrite test or absence of pyuria (urine WBC count <= 5-10) make a UTI (urinary tract infection) very unlikely in a non-neutropenic adult (<=5% likelihood in many studies). A positive leukocyte esterase, nitrite and/or pyuria is a nonspecific result. This can be seen in conditions other than a UTI e.g. asymptomatic bacteriuria, gynecologic infections, sexually transmitted infections, and noninfectious conditions (positive predictive value for UTI around 50%) [facility] Glucose Ql (U) Negative Normal Negative [facility] Comment on above: Order Comment: [place] troponin can result from acute myocardial infarction (coronary etiology) or myocardial injury (non-coronary etiology) - always consider both. Interval test times for ruling out acute coronary syndrome (ACS) are 2 hours. All results are reported in whole numbers representing ng/L. Results obtained by different labs or methods are not comparable. For ruling out ACS, lab values are always used in conjunction with clinical risk assessment (e.g., HEART score*). Interpreting initial value in ruling out ACS Less than 5 ng/L - below lower limit of quantification - essentially rules out ACS if chest pain began more than 3 hours prior to test and assessed risk is low. 5 - 49 ng/L - indeterminate - consider repeat value in 2 hours depending on risk assessment. 50 ng/L or greater - concern for ACS or myocardial injury. Interpreting delta values in ruling out ACS. Always compare to initial value obtained: Absolute change (rise or fall) of less than 5 ng/L - essentially rules out ACS if assessed clinical risk is low. Absolute change (rise or fall) of 5 - 19 ng/L - indeterminate - consider another repeat value in 2 hours depending on assessed clinical risk. Absolute change (rise or fall) of 20 ng/L or greater - concern for ACS or myocardial injury. Any absolute value of 50 ng/L or greater - concern for ACS or myocardial injury. *When using hsTnI to calculate the HEART score, use the 99% Upper Reference Limit of 15 ng/L as the normal limit (i.e. <=15 ng/L = 0 points, 16-45 ng/L = 1 point, >45 ng/L = 2 points). Disposition Intermediate hsTnI values DO NOT mandate admission to a cardiology or telemetry unit. They need to be interpreted within the clinical context using provider judgement. Performed By: #### H STRP #### [facility] [address] [place], [id number] Protein (U) [Mass/Vol] 70 mg/dL Abnormal Negative [facility] Comment on above: Order Comment: [place] troponin can result from acute myocardial infarction (coronary etiology) or myocardial injury (non-coronary etiology) - always consider both. Interval test times for ruling out acute coronary syndrome (ACS) are 2 hours. All results are reported in whole numbers representing ng/L. Results obtained by different labs or methods are not comparable. For ruling out ACS, lab values are always used in conjunction with clinical risk assessment (e.g., HEART score*). Interpreting initial value in ruling out ACS Less than 5 ng/L - below lower limit of quantification - essentially rules out ACS if chest pain began more than 3 hours prior to test and assessed risk is low. 5 - 49 ng/L - indeterminate - consider repeat value in 2 hours depending on risk assessment. 50 ng/L or greater - concern for ACS or myocardial injury. Interpreting delta values in ruling out ACS. Always compare to initial value obtained: Absolute change (rise or fall) of less than 5 ng/L - essentially rules out ACS if assessed clinical risk is low. Absolute change (rise or fall) of 5 - 19 ng/L - indeterminate - consider another repeat value in 2 hours depending on assessed clinical risk. Absolute change (rise or fall) of 20 ng/L or greater - concern for ACS or myocardial injury. Any absolute value of 50 ng/L or greater - concern for ACS or myocardial injury. *When using hsTnI to calculate the HEART score, use the 99% Upper Reference Limit of 15 ng/L as the normal limit (i.e. <=15 ng/L = 0 points, 16-45 ng/L = 1 point, >45 ng/L = 2 points). Disposition Intermediate hsTnI values DO NOT mandate admission to a cardiology or telemetry unit. They need to be interpreted within the clinical context using provider judgement. Performed By: #### H STRP #### [facility] [address] [place], [place], U APPEAR Clear Normal Clear [facility] Comment on above: Order Comment: [place] troponin can result from acute myocardial infarction (coronary etiology) or myocardial injury (non-coronary etiology) - always consider both. Interval test times for ruling out acute coronary syndrome (ACS) are 2 hours. All results are reported in whole numbers representing ng/L. Results obtained by different labs or methods are not comparable. For ruling out ACS, lab values are always used in conjunction with clinical risk assessment (e.g., HEART score*). Interpreting initial value in ruling out ACS Less than 5 ng/L - below lower limit of quantification - essentially rules out ACS if chest pain began more than 3 hours prior to test and assessed risk is low. 5 - 49 ng/L - indeterminate - consider repeat value in 2 hours depending on risk assessment. 50 ng/L or greater - concern for ACS or myocardial injury. Interpreting delta values in ruling out ACS. Always compare to initial value obtained: Absolute change (rise or fall) of less than 5 ng/L - essentially rules out ACS if assessed clinical risk is low. Absolute change (rise or fall) of 5 - 19 ng/L - indeterminate - consider another repeat value in 2 hours depending on assessed clinical risk. Absolute change (rise or fall) of 20 ng/L or greater - concern for ACS or myocardial injury. Any absolute value of 50 ng/L or greater - concern for ACS or myocardial injury. *When using hsTnI to calculate the HEART score, use the 99% Upper Reference Limit of 15 ng/L as the normal limit (i.e. <=15 ng/L = 0 points, 16-45 ng/L = 1 point, >45 ng/L = 2 points). Disposition Intermediate hsTnI values DO NOT mandate admission to a cardiology or telemetry unit. They need to be interpreted within the clinical context using provider judgement. Performed By: #### H STRP #### [facility] [address] [place], [place], U BILI Negative Normal Negative [facility] Comment on above: Order Comment: [place] troponin can result from acute myocardial infarction (coronary etiology) or myocardial injury (non-coronary etiology) - always consider both. Interval test times for ruling out acute coronary syndrome (ACS) are 2 hours. All results are reported in whole numbers representing ng/L. Results obtained by different labs or methods are not comparable. For ruling out ACS, lab values are always used in conjunction with clinical risk assessment (e.g., HEART score*). Interpreting initial value in ruling out ACS Less than 5 ng/L - below lower limit of quantification - essentially rules out ACS if chest pain began more than 3 hours prior to test and assessed risk is low. 5 - 49 ng/L - indeterminate - consider repeat value in 2 hours depending on risk assessment. 50 ng/L or greater - concern for ACS or myocardial injury. Interpreting delta values in ruling out ACS. Always compare to initial value obtained: Absolute change (rise or fall) of less than 5 ng/L - essentially rules out ACS if assessed clinical risk is low. Absolute change (rise or fall) of 5 - 19 ng/L - indeterminate - consider another repeat value in 2 hours depending on assessed clinical risk. Absolute change (rise or fall) of 20 ng/L or greater - concern for ACS or myocardial injury. Any absolute value of 50 ng/L or greater - concern for ACS or myocardial injury. *When using hsTnI to calculate the HEART score, use the 99% Upper Reference Limit of 15 ng/L as the normal limit (i.e. <=15 ng/L = 0 points, 16-45 ng/L = 1 point, >45 ng/L = 2 points). Disposition Intermediate hsTnI values DO NOT mandate admission to a cardiology or telemetry unit. They need to be interpreted within the clinical context using provider judgement. Performed By: #### H STRP #### [facility] [address] [place] [address], [phone] U BLOOD Trace Abnormal Negative [facility] Comment on above: Order Comment: [place] troponin can result from acute myocardial infarction (coronary etiology) or myocardial injury (non-coronary etiology) - always consider both. Interval test times for ruling out acute coronary syndrome (ACS) are 2 hours. All results are reported in whole numbers representing ng/L. Results obtained by different labs or methods are not comparable. For ruling out ACS, lab values are always used in conjunction with clinical risk assessment (e.g., HEART score*). Interpreting initial value in ruling out ACS Less than 5 ng/L - below lower limit of quantification - essentially rules out ACS if chest pain began more than 3 hours prior to test and assessed risk is low. 5 - 49 ng/L - indeterminate - consider repeat value in 2 hours depending on risk assessment. 50 ng/L or greater - concern for ACS or myocardial injury. Interpreting delta values in ruling out ACS. Always compare to initial value obtained: Absolute change (rise or fall) of less than 5 ng/L - essentially rules out ACS if assessed clinical risk is low. Absolute change (rise or fall) of 5 - 19 ng/L - indeterminate - consider another repeat value in 2 hours depending on assessed clinical risk. Absolute change (rise or fall) of 20 ng/L or greater - concern for ACS or myocardial injury. Any absolute value of 50 ng/L or greater - concern for ACS or myocardial injury. *When using hsTnI to calculate the HEART score, use the 99% Upper Reference Limit of 15 ng/L as the normal limit (i.e. <=15 ng/L = 0 points, 16-45 ng/L = 1 point, >45 ng/L = 2 points). Disposition Intermediate hsTnI values DO NOT mandate admission to a cardiology or telemetry unit. They need to be interpreted within the clinical context using provider judgement. Performed By: #### H STRP #### [facility] [address] [place] [address], [phone] U COLOR Yellow Normal Colorless [facility] Comment on above: Order Comment: [place] troponin can result from acute myocardial infarction (coronary etiology) or myocardial injury (non-coronary etiology) - always consider both. Interval test times for ruling out acute coronary syndrome (ACS) are 2 hours. All results are reported in whole numbers representing ng/L. Results obtained by different labs or methods are not comparable. For ruling out ACS, lab values are always used in conjunction with clinical risk assessment (e.g., HEART score*). Interpreting initial value in ruling out ACS Less than 5 ng/L - below lower limit of quantification - essentially rules out ACS if chest pain began more than 3 hours prior to test and assessed risk is low. 5 - 49 ng/L - indeterminate - consider repeat value in 2 hours depending on risk assessment. 50 ng/L or greater - concern for ACS or myocardial injury. Interpreting delta values in ruling out ACS. Always compare to initial value obtained: Absolute change (rise or fall) of less than 5 ng/L - essentially rules out ACS if assessed clinical risk is low. Absolute change (rise or fall) of 5 - 19 ng/L - indeterminate - consider another repeat value in 2 hours depending on assessed clinical risk. Absolute change (rise or fall) of 20 ng/L or greater - concern for ACS or myocardial injury. Any absolute value of 50 ng/L or greater - concern for ACS or myocardial injury. *When using hsTnI to calculate the HEART score, use the 99% Upper Reference Limit of 15 ng/L as the normal limit (i.e. <=15 ng/L = 0 points, 16-45 ng/L = 1 point, >45 ng/L = 2 points). Disposition Intermediate hsTnI values DO NOT mandate admission to a cardiology or telemetry unit. They need to be interpreted within the clinical context using provider judgement. Performed By: #### H STRP #### [facility] [address] [place] [address], [phone] U KETONE Negative Normal Negative [facility] Comment on above: Order Comment: [place] troponin can result from acute myocardial infarction (coronary etiology) or myocardial injury (non-coronary etiology) - always consider both. Interval test times for ruling out acute coronary syndrome (ACS) are 2 hours. All results are reported in whole numbers representing ng/L. Results obtained by different labs or methods are not comparable. For ruling out ACS, lab values are always used in conjunction with clinical risk assessment (e.g., HEART score*). Interpreting initial value in ruling out ACS Less than 5 ng/L - below lower limit of quantification - essentially rules out ACS if chest pain began more than 3 hours prior to test and assessed risk is low. 5 - 49 ng/L - indeterminate - consider repeat value in 2 hours depending on risk assessment. 50 ng/L or greater - concern for ACS or myocardial injury. Interpreting delta values in ruling out ACS. Always compare to initial value obtained: Absolute change (rise or fall) of less than 5 ng/L - essentially rules out ACS if assessed clinical risk is low. Absolute change (rise or fall) of 5 - 19 ng/L - indeterminate - consider another repeat value in 2 hours depending on assessed clinical risk. Absolute change (rise or fall) of 20 ng/L or greater - concern for ACS or myocardial injury. Any absolute value of 50 ng/L or greater - concern for ACS or myocardial injury. *When using hsTnI to calculate the HEART score, use the 99% Upper Reference Limit of 15 ng/L as the normal limit (i.e. <=15 ng/L = 0 points, 16-45 ng/L = 1 point, >45 ng/L = 2 points). Disposition Intermediate hsTnI values DO NOT mandate admission to a cardiology or telemetry unit. They need to be interpreted within the clinical context using provider judgement. Performed By: #### H STRP #### [facility] [address] [place] [address], [phone] U LEUK Negative Normal Negative [facility] Comment on above: Order Comment: [place] troponin can result from acute myocardial infarction (coronary etiology) or myocardial injury (non-coronary etiology) - always consider both. Interval test times for ruling out acute coronary syndrome (ACS) are 2 hours. All results are reported in whole numbers representing ng/L. Results obtained by different labs or methods are not comparable. For ruling out ACS, lab values are always used in conjunction with clinical risk assessment (e.g., HEART score*). Interpreting initial value in ruling out ACS Less than 5 ng/L - below lower limit of quantification - essentially rules out ACS if chest pain began more than 3 hours prior to test and assessed risk is low. 5 - 49 ng/L - indeterminate - consider repeat value in 2 hours depending on risk assessment. 50 ng/L or greater - concern for ACS or myocardial injury. Interpreting delta values in ruling out ACS. Always compare to initial value obtained: Absolute change (rise or fall) of less than 5 ng/L - essentially rules out ACS if assessed clinical risk is low. Absolute change (rise or fall) of 5 - 19 ng/L - indeterminate - consider another repeat value in 2 hours depending on assessed clinical risk. Absolute change (rise or fall) of 20 ng/L or greater - concern for ACS or myocardial injury. Any absolute value of 50 ng/L or greater - concern for ACS or myocardial injury. *When using hsTnI to calculate the HEART score, use the 99% Upper Reference Limit of 15 ng/L as the normal limit (i.e. <=15 ng/L = 0 points, 16-45 ng/L = 1 point, >45 ng/L = 2 points). Disposition Intermediate hsTnI values DO NOT mandate admission to a cardiology or telemetry unit. They need to be interpreted within the clinical context using provider judgement. Performed By: #### H STRP #### [facility] [address] [place], [phone] U NITRITE Negative Normal Negative [facility] Comment on above: Order Comment: [place] troponin can result from acute myocardial infarction (coronary etiology) or myocardial injury (non-coronary etiology) - always consider both. Interval test times for ruling out acute coronary syndrome (ACS) are 2 hours. All results are reported in whole numbers representing ng/L. Results obtained by different labs or methods are not comparable. For ruling out ACS, lab values are always used in conjunction with clinical risk assessment (e.g., HEART score*). Interpreting initial value in ruling out ACS Less than 5 ng/L - below lower limit of quantification - essentially rules out ACS if chest pain began more than 3 hours prior to test and assessed risk is low. 5 - 49 ng/L - indeterminate - consider repeat value in 2 hours depending on risk assessment. 50 ng/L or greater - concern for ACS or myocardial injury. Interpreting delta values in ruling out ACS. Always compare to initial value obtained: Absolute change (rise or fall) of less than 5 ng/L - essentially rules out ACS if assessed clinical risk is low. Absolute change (rise or fall) of 5 - 19 ng/L - indeterminate - consider another repeat value in 2 hours depending on assessed clinical risk. Absolute change (rise or fall) of 20 ng/L or greater - concern for ACS or myocardial injury. Any absolute value of 50 ng/L or greater - concern for ACS or myocardial injury. *When using hsTnI to calculate the HEART score, use the 99% Upper Reference Limit of 15 ng/L as the normal limit (i.e. <=15 ng/L = 0 points, 16-45 ng/L = 1 point, >45 ng/L = 2 points). Disposition Intermediate hsTnI values DO NOT mandate admission to a cardiology or telemetry unit. They need to be interpreted within the clinical context using provider judgement. Performed By: #### H STRP #### [facility] [address] [place], [place], U PH 6.5 Normal 5.0-8.0 [facility] Comment on above: Order Comment: [place] troponin can result from acute myocardial infarction (coronary etiology) or myocardial injury (non-coronary etiology) - always consider both. Interval test times for ruling out acute coronary syndrome (ACS) are 2 hours. All results are reported in whole numbers representing ng/L. Results obtained by different labs or methods are not comparable. For ruling out ACS, lab values are always used in conjunction with clinical risk assessment (e.g., HEART score*). Interpreting initial value in ruling out ACS Less than 5 ng/L - below lower limit of quantification - essentially rules out ACS if chest pain began more than 3 hours prior to test and assessed risk is low. 5 - 49 ng/L - indeterminate - consider repeat value in 2 hours depending on risk assessment. 50 ng/L or greater - concern for ACS or myocardial injury. Interpreting delta values in ruling out ACS. Always compare to initial value obtained: Absolute change (rise or fall) of less than 5 ng/L - essentially rules out ACS if assessed clinical risk is low. Absolute change (rise or fall) of 5 - 19 ng/L - indeterminate - consider another repeat value in 2 hours depending on assessed clinical risk. Absolute change (rise or fall) of 20 ng/L or greater - concern for ACS or myocardial injury. Any absolute value of 50 ng/L or greater - concern for ACS or myocardial injury. *When using hsTnI to calculate the HEART score, use the 99% Upper Reference Limit of 15 ng/L as the normal limit (i.e. <=15 ng/L = 0 points, 16-45 ng/L = 1 point, >45 ng/L = 2 points). Disposition Intermediate hsTnI values DO NOT mandate admission to a cardiology or telemetry unit. They need to be interpreted within the clinical context using provider judgement. Performed By: #### H STRP #### [facility] [address], [place], U RBC 0-2 Normal 0-2 [facility] Comment on above: Order Comment: [place] troponin can result from acute myocardial infarction (coronary etiology) or myocardial injury (non-coronary etiology) - always consider both. Interval test times for ruling out acute coronary syndrome (ACS) are 2 hours. All results are reported in whole numbers representing ng/L. Results obtained by different labs or methods are not comparable. For ruling out ACS, lab values are always used in conjunction with clinical risk assessment (e.g., HEART score*). Interpreting initial value in ruling out ACS Less than 5 ng/L - below lower limit of quantification - essentially rules out ACS if chest pain began more than 3 hours prior to test and assessed risk is low. 5 - 49 ng/L - indeterminate - consider repeat value in 2 hours depending on risk assessment. 50 ng/L or greater - concern for ACS or myocardial injury. Interpreting delta values in ruling out ACS. Always compare to initial value obtained: Absolute change (rise or fall) of less than 5 ng/L - essentially rules out ACS if assessed clinical risk is low. Absolute change (rise or fall) of 5 - 19 ng/L - indeterminate - consider another repeat value in 2 hours depending on assessed clinical risk. Absolute change (rise or fall) of 20 ng/L or greater - concern for ACS or myocardial injury. Any absolute value of 50 ng/L or greater - concern for ACS or myocardial injury. *When using hsTnI to calculate the HEART score, use the 99% Upper Reference Limit of 15 ng/L as the normal limit (i.e. <=15 ng/L = 0 points, 16-45 ng/L = 1 point, >45 ng/L = 2 points). Disposition Intermediate hsTnI values DO NOT mandate admission to a cardiology or telemetry unit. They need to be interpreted within the clinical context using provider judgement. Performed By: #### H STRP #### [facility] [address] [place] [address], [phone] U SG 1.036 High <=1.030 [facility] Comment on above: Order Comment: [place] troponin can result from acute myocardial infarction (coronary etiology) or myocardial injury (non-coronary etiology) - always consider both. Interval test times for ruling out acute coronary syndrome (ACS) are 2 hours. All results are reported in whole numbers representing ng/L. Results obtained by different labs or methods are not comparable. For ruling out ACS, lab values are always used in conjunction with clinical risk assessment (e.g., HEART score*). Interpreting initial value in ruling out ACS Less than 5 ng/L - below lower limit of quantification - essentially rules out ACS if chest pain began more than 3 hours prior to test and assessed risk is low. 5 - 49 ng/L - indeterminate - consider repeat value in 2 hours depending on risk assessment. 50 ng/L or greater - concern for ACS or myocardial injury. Interpreting delta values in ruling out ACS. Always compare to initial value obtained: Absolute change (rise or fall) of less than 5 ng/L - essentially rules out ACS if assessed clinical risk is low. Absolute change (rise or fall) of 5 - 19 ng/L - indeterminate - consider another repeat value in 2 hours depending on assessed clinical risk. Absolute change (rise or fall) of 20 ng/L or greater - concern for ACS or myocardial injury. Any absolute value of 50 ng/L or greater - concern for ACS or myocardial injury. *When using hsTnI to calculate the HEART score, use the 99% Upper Reference Limit of 15 ng/L as the normal limit (i.e. <=15 ng/L = 0 points, 16-45 ng/L = 1 point, >45 ng/L = 2 points). Disposition Intermediate hsTnI values DO NOT mandate admission to a cardiology or telemetry unit. They need to be interpreted within the clinical context using provider judgement. Performed By: #### H STRP #### [facility] [address] [place] [address], [phone] U UROBILI Negative Normal Negative [facility] Comment on above: Order Comment: [place] troponin can result from acute myocardial infarction (coronary etiology) or myocardial injury (non-coronary etiology) - always consider both. Interval test times for ruling out acute coronary syndrome (ACS) are 2 hours. All results are reported in whole numbers representing ng/L. Results obtained by different labs or methods are not comparable. For ruling out ACS, lab values are always used in conjunction with clinical risk assessment (e.g., HEART score*). Interpreting initial value in ruling out ACS Less than 5 ng/L - below lower limit of quantification - essentially rules out ACS if chest pain began more than 3 hours prior to test and assessed risk is low. 5 - 49 ng/L - indeterminate - consider repeat value in 2 hours depending on risk assessment. 50 ng/L or greater - concern for ACS or myocardial injury. Interpreting delta values in ruling out ACS. Always compare to initial value obtained: Absolute change (rise or fall) of less than 5 ng/L - essentially rules out ACS if assessed clinical risk is low. Absolute change (rise or fall) of 5 - 19 ng/L - indeterminate - consider another repeat value in 2 hours depending on assessed clinical risk. Absolute change (rise or fall) of 20 ng/L or greater - concern for ACS or myocardial injury. Any absolute value of 50 ng/L or greater - concern for ACS or myocardial injury. *When using hsTnI to calculate the HEART score, use the 99% Upper Reference Limit of 15 ng/L as the normal limit (i.e. <=15 ng/L = 0 points, 16-45 ng/L = 1 point, >45 ng/L = 2 points). Disposition Intermediate hsTnI values DO NOT mandate admission to a cardiology or telemetry unit. They need to be interpreted within the clinical context using provider judgement. Performed By: #### H STRP #### [facility] [address] [place] [address], [phone] U WBC 0-2 Normal 0-2 [facility] Comment on above: Order Comment: [place] troponin can result from acute myocardial infarction (coronary etiology) or myocardial injury (non-coronary etiology) - always consider both. Interval test times for ruling out acute coronary syndrome (ACS) are 2 hours. All results are reported in whole numbers representing ng/L. Results obtained by different labs or methods are not comparable. For ruling out ACS, lab values are always used in conjunction with clinical risk assessment (e.g., HEART score*). Interpreting initial value in ruling out ACS Less than 5 ng/L - below lower limit of quantification - essentially rules out ACS if chest pain began more than 3 hours prior to test and assessed risk is low. 5 - 49 ng/L - indeterminate - consider repeat value in 2 hours depending on risk assessment. 50 ng/L or greater - concern for ACS or myocardial injury. Interpreting delta values in ruling out ACS. Always compare to initial value obtained: Absolute change (rise or fall) of less than 5 ng/L - essentially rules out ACS if assessed clinical risk is low. Absolute change (rise or fall) of 5 - 19 ng/L - indeterminate - consider another repeat value in 2 hours depending on assessed clinical risk. Absolute change (rise or fall) of 20 ng/L or greater - concern for ACS or myocardial injury. Any absolute value of 50 ng/L or greater - concern for ACS or myocardial injury. *When using hsTnI to calculate the HEART score, use the 99% Upper Reference Limit of 15 ng/L as the normal limit (i.e. <=15 ng/L = 0 points, 16-45 ng/L = 1 point, >45 ng/L = 2 points). Disposition Intermediate hsTnI values DO NOT mandate admission to a cardiology or telemetry unit. They need to be interpreted within the clinical context using provider judgement. Performed By: #### H STRP #### [facility] [address] [place] [address], [phone] XR CHEST 1V FRONTALon 2024 XR CHEST 1V FRONTAL * * *Final Report* * * DATE OF EXAM: Oct 24 2024 10:19AM LDX 5290 - XR CHEST 1V FRONTAL / PROCEDURE REASON: Shortness of breath * * * * Physician Interpretation * * * * EXAMINATION: CHEST RADIOGRAPH (SINGLE VIEW AP OR PA) CLINICAL HISTORY: Shortness of breath, Cough MQ: XC1_5 Comparison: 07/14/2024 chest exam 06/08/2024 CT chest RESULT: Lines, tubes, and devices: None. Lungs and pleura: No consolidation. No lung mass. No pleural effusion. Cardiomediastinal silhouette: Normal cardiomediastinal silhouette. Other: . IMPRESSION: No acute radiographic abnormality. Package Winder: YAIR Transcribe Date/Time: Oct 24 2024 10:21A Dictated by : AFTAB MARTINEZ MD This examination was interpreted and the report reviewed and electronically signed by: AFTAB MARTINEZ MD on Oct 24 2024 10:22AM EST [id number] Normal [facility] XR CHEST AP OR PA 1 VIEWon 0 10-24-2024 XR CHEST AP OR PA 1 VIEW EXAMINATION: XR CHEST AP OR PA 1 VIEW 10/24/2024 08:28 PM CLINICAL HISTORY: Asthma exacerbation ASSOCIATED DIAGNOSIS: Asthma exacerbation ORDERING PROVIDER: [employer]ENT[employer] D[employer] NOTE: COMPARISON: None FINDINGS: Lines, tubes, and devices: None. Lungs and pleura: Diffuse interstitial prominence is noted. There is no large pleural effusion or pneumothorax. Cardiomediastinal silhouette: Normal cardiomediastinal silhouette. Musculoskeletal: Unremarkable. IMPRESSION: Diffuse interstitial prominence. Findings could be related to atypical/viral pneumonia or mild edema. MACRO: None Normal [facility] XR Chest Single viewon 10-24 EXAMINATION: XR CHES T AP OR PA 1 VIEW 10/24/2024 08:28 PM CLINICAL HISTORY: Asthma exacerbation ASSOCIATED DIAGNOSIS: Asthma exacerbation ORDERING PROVIDER: VALENTINA DUMONT TECHNXIOMARA NOTE: COMPARISON: None FINDINGS: Lines, tubes, and devices: None. Lungs and pleura: Diffuse interstitial prominence is noted. There is no large pleural effusion or pneumothorax. Cardiomediastinal silhouette: Normal cardiomediastinal silhouette. Musculoskeletal: Unremarkable. IMPRESSION: Diffuse interstitial prominence. Findings could be related to atypical/viral pneumonia or mild edema. MACRO: None RADIOLOGY Hilda De León MD - 10/24/2024 EXAMINATION: XR CHEST AP OR PA 1 VIEW 10/24/2024 08:28 PM CLINICAL HISTORY: Asthma exacerbation ASSOCIATED DIAGNOSIS: Asthma exacerbation ORDERING PROVIDER: VALENTINA DUMONT TECHNXIOMARA NOTE: COMPARISON: None FINDINGS: Lines, tubes, and devices: None. Lungs and pleura: Diffuse interstitial prominence is noted. There is no large pleural effusion or pneumothorax. Cardiomediastinal silhouette: Normal cardiomediastinal silhouette. Musculoskeletal: Unremarkable. IMPRESSION: Diffuse interstitial prominence. Findings could be related to atypical/viral pneumonia or mild edema. MACRO: None [facility] observation (narrative) [facility] XR Chest Single viewOrdered By: Hilda De León on 10-24-2024 [facility] Work Phone: [phone] 09-12-2024 [id number] HNO ID: [id number] Author: VARUN PRATT, PT Service: ? Author Type: Physical Therapist Type: [id number] Filed: 09/12/2024 12:56 Note Text: [facility] Physical Therapy Plan of Care Certification Patient Name: Elis Bills : 1960 [facility] #: [id number] Date: 09/12/2024 To: Lois Kee MD From Therapist: Varun Pratt PT RE: Patient Certification/ Recertification Your review, approval and electronic signature are required in order to comply with Payor: MEDICARE / Plan: MEDICARE A AND B / Product Type: Medicare / regulations. The identified Physical Therapy PLAN OF CARE for the patient is as follows: Z98.890 S/P lumbar laminectomy (primary encounter diagnosis) PLAN OF CARE: Assessment: Elis Bills presents with diagnosis of s/p L1 Decompression Laminectomy that interferes with physical activities, walking in the community (Upright Posture with Walking.) .The patient presents with impairments in ADL's, flexibility, independence in exercise, posture, range of motion, soft tissue healing, and strength. PROMIS? (Patient-Reported Outcomes Measurement Information System) scores were reviewed and identified as within normal limits. Prognosis for therapy is Good due to: current objective clinical presentation. The patient will benefit from skilled therapy services to meet the goals established for this plan of care as noted below. Goals for Episode of Care: established 09/12/24 [place] in home exercise program. Restore pain-free lumbar ROM to WNL to allow for improved functional mobility Stand / Walk to return to regular walking program and ADLs without pain/symptoms. Patient will increase strength of trunk to 4+/5 to allow for return to prior functional status and perform ADLs. Improve posture during ambulation. Patient Goals: Help back stiffness; improve mobility. Time Frame for Goals and Treatment : 11/10/24 Planned Interventions, Frequency, and Duration: Current Frequency: 1x/week Duration: 4 weeks Total Number of Visits Planned: 4 Planned Treatment Interventions: Therapeutic exercise (63641), Neuromuscular re-education (94488), Manual therapy (23002), Therapeutic activities (74185), Self-fci management (86535), Patient/Family/Caregi sudhakar Education, Body Mechanics Training PLAN FOR NEXT VISIT: Review, progress AND correct HEP PRN; NS Strengthening, Erector Flexibility AND Core Stability. Patient demonstrates good understanding of plan of care and treatment. The above goals and plan of care were discussed and agreed upon by patient/family. For further details regarding this patient refer to the Physical Therapy electronically documented visit dated 09/12/2024. Provider Attestation I have reviewed the treatment plan for Elis Tim Bills, [facility]# [id number] for the period of 09/12/24 -- 10/17/24, established on 09/12/2024. Signature certifies the need for therapy services. [facility] CNTHERAPYon 09-12-2024 CNTHERAPY OT/PT/Speech Visit (PTWS) ELIS BILLS ([id number]) 1960 M Date Time Provider Department 09/12/24 8:30 AM VARUN PRATT PTWS Date Time Provider Department Center 09/12/2024 8:30 AM [id number], COLIN PTWS Mila Sanchez Reason for Visit: PT Eval [747] PT Discharge [752] Primary Visit Diagnosis:S/P lumbar laminectomy [Z98.890] Allergies As of Date: 09/12/2024 Noted Allergy Reaction PENICILLINS 08/27/2014 14 - Other: See Comments Comments: Respiratory distress as a baby DALIRESP (ROFLUMILAST) 07/14/2024 2 - Rash Date Reviewed: 08/10/2024 Reviewed by: Puma Nicolas MA - Fully Assessed Prescriptions as of 11/16/2024 - clopidogrel (PLAVIX) 75 mg tablet Take 1 tablet by mouth once daily. Patient should start on August 05, 2024. - acetaminophen (TYLENOL) 325 mg tablet Take 2 tablets by mouth every 6 hours. - docusate sodium (COLACE) 100 mg capsule Take 1 capsule by mouth two times a day. - cyclobenzaprine (FLEXERIL) 10 mg tablet Take 1 tablet by mouth three times a day as needed. - BREZTRI AEROSPHERE 160-9-4.8 mcg/actuation HFA aerosol inhaler INHALE 2 PUFFS TWICE DAILY, RINSE MOUTH AND THROAT AFTER USE. - omeprazole (PRILOSEC) 10 mg capsule Take 10 mg by mouth once daily. - nicotine polacrilex (NICORETTE) 4 mg gum Take 1 Each by mouth as needed. - albuterol HFA (PROVENTIL HFA, VENTOLIN HFA) 90 mcg/actuation inhaler Inhale 2 Puffs as instructed every 4 hours as needed for wheezing/shortness of breath. - albuterol (PROVENTIL) 2.5 mg /3 mL (0.083 %) nebulizer solution Use 3 mL via nebulizer every 4 hours as needed for wheezing/shortness of breath. Inhale over 5-15 minutes - atorvastatin (LIPITOR) 80 mg tablet Take 80 mg by mouth once daily. - montelukast (SINGULAIR) 10 mg tablet Take 1 tablet by mouth daily at bedtime. - budesonide (PULMICORT) 0.5 mg/2 mL nebulizer solution Use 2 mL via nebulizer two times a day. - lisinopril 2.5 mg tablet Take 2.5 mg by mouth once daily. Drafter Apprentice: Addendum Therapy (PT/OT/Speech/Resp) ID: [id number] 09/12/2024 9:11 AM Author: VARUN PRATT Signed by VARUN PRATT PT on 09/12/2024 at 9:11 AM * * * This document replaces document [id number] * * * Document text: Program_ID:[id number] Access Code: [email or web address] URL: [email or web address] Date: 09-12-2024 Prepared By: Varun Pratt Program Notes Exercises - Supine Transversus Abdominis Bracing - Hands on Stomach - 2 x daily - 7 x weekly - 2-3 sets - 10 reps - Seated Anti-Rotation Press With Anchored Resistance - 2 x daily - 7 x weekly - 2-3 sets - 10 reps - Supine Lower Trunk Rotation - 2 x daily - 5-7 x weekly - 2 sets - 10 reps - Seated Flexion Stretch with [place] Ball - 2 x daily - 7 x weekly - 2 sets - 10 reps - Seated Thoracic Flexion and Rotation with [place] Ball - 2 x daily - 7 x weekly - 2 sets - 10 reps ----- [facility] THERAPY NTon 09-12-2024 THERAPY NT HNO ID: [id number] Author: VARUN PRATT PT Service: ? Author Type: Physical Therapist Type: Therapy (PT/OT/Speech/Resp) Filed: 09/12/2024 09:11 Note Text: Program_ID:[id number] Access Code: [email or web address] URL: [email or web address] Date: 09-12-2024 Prepared By: Varun Pratt Program Notes Exercises - Supine Transversus Abdominis Bracing - Hands on Stomach - 2 x daily - 7 x weekly - 2-3 sets - 10 reps - Seated Anti-Rotation Press With Anchored Resistance - 2 x daily - 7 x weekly - 2-3 sets - 10 reps - Supine Lower Trunk Rotation - 2 x daily - 5-7 x weekly - 2 sets - 10 reps - Seated Flexion Stretch with [place] Ball - 2 x daily - 7 x weekly - 2 sets - 10 reps - Seated Thoracic Flexion and Rotation with [place] Ball - 2 x daily - 7 x weekly - 2 sets - 10 reps [facility] CNPNon 09-05-2024 CNPN Telephone (NEAGCLM) ELIS BILLS ([id number]) 1960 M Date Time Provider Department 09/05/24 LOIS KEE NEAGCLM During your visit today, we recorded the following information about you: Brooke Root 09/05/2024 8:16 AM Signed LVM that appt for 09/18/24 has been cancelled due to not needing appt on 09/18/24 and again on 10/19/24. Told patient to call office if he has any questions regarding the cancelled appt on 09/18/24. Allergies As of Date: 09/05/2024 Noted Allergy Reaction PENICILLINS 08/27/2014 14 - Other: See Comments Comments: Respiratory distress as a baby DALIRESP (ROFLUMILAST) 07/14/2024 2 - Rash Date Reviewed: 08/10/2024 Reviewed by: Puma Nicolas MA - Fully Assessed Prescriptions as of 09/05/2024 - clopidogrel (PLAVIX) 75 mg tablet Take 1 tablet by mouth once daily. Patient should start on August 05, 2024. - acetaminophen (TYLENOL) 325 mg tablet Take 2 tablets by mouth every 6 hours. - docusate sodium (COLACE) 100 mg capsule Take 1 capsule by mouth two times a day. - cyclobenzaprine (FLEXERIL) 10 mg tablet Take 1 tablet by mouth three times a day as needed. - polyethylene glycol 3350 17 gram packet Take 1 Packet by mouth once daily as needed. Dissolve dose in 4 - 8 ounces of liquid and take as directed. - BREZTRI AEROSPHERE 160-9-4.8 mcg/actuation HFA aerosol inhaler INHALE 2 PUFFS TWICE DAILY, RINSE MOUTH AND THROAT AFTER USE. - omeprazole (PRILOSEC) 10 mg capsule Take 10 mg by mouth once daily. - nicotine polacrilex (NICORETTE) 4 mg gum Take 1 Each by mouth as needed. - albuterol HFA (PROVENTIL HFA, VENTOLIN HFA) 90 mcg/actuation inhaler Inhale 2 Puffs as instructed every 4 hours as needed for wheezing/shortness of breath. - albuterol (PROVENTIL) 2.5 mg /3 mL (0.083 %) nebulizer solution Use 3 mL via nebulizer every 4 hours as needed for wheezing/shortness of breath. Inhale over 5-15 minutes - atorvastatin (LIPITOR) 80 mg tablet Take 80 mg by mouth once daily. - montelukast (SINGULAIR) 10 mg tablet Take 1 tablet by mouth daily at bedtime. - budesonide (PULMICORT) 0.5 mg/2 mL nebulizer solution Use 2 mL via nebulizer two times a day. - lisinopril 2.5 mg tablet Take 2.5 mg by mouth once daily. Problem List As Of Date 09/05/2024 Noted Resolved Chronic bronchitis (HCC) [J42] 08/20/2023 Wheezing [R06.2] 08/20/2023 Chronic obstructive pulmonary disease with acut*08/20/2023 12/01/2023 Nicotine use disorder [F17.200] 08/20/2023 Morbid obesity (HCC) [E66.01] 08/20/2023 Lung nodules [R91.8] 11/11/2023 Severe persistent asthma [J45.50] 11/11/2023 Hyponatremia [E87.1] 12/01/2023 Lumbar stenosis [M48.061] 12/01/2023 Elevated troponin [R79.89] 12/01/2023 COPD with acute exacerbation (HCC) [J44.1] 12/01/2023 ETOH abuse [F10.10] 12/01/2023 Obesity, Class III, BMI >= 40 [E66.01] 12/01/2023 Pre-op examination [Z01.818] 07/10/2024 Spinal stenosis of lumbar region with neurogeni*07/10/2024 Cerebral infarction due to occlusion of left po*07/10/2024 Gastroesophageal reflux disease [K21.9] 07/10/2024 Hyperlipidemia [E78.5] 07/10/2024 HTN (hypertension) [I10] 07/10/2024 RBBB (right bundle branch block) [I45.10] 07/14/2024 Cerebrovascular accident (CVA) (HCC) [I63.9] 07/14/2024 Tobacco user [Z72.0] 07/14/2024 Spinal stenosis, lumbar region, without neuroge*07/28/2024 Encounter Status:Closed by BROOKE ROOT on 09/05/24 [facility] Donna 08-28-2024 JELENA Telephone (NEAGCLM) ELIS BILLS ([id number]) 1960 M Date Time Provider Department 08/28/24 LOIS KEEAGCLM During your visit today, we recorded the following information about you: Puma Nicolas MA 08/28/2024 2:37 PM Signed Referral placed for physical therapy in the [facility] Internal Referral Portal. Confirmation # [id number] Puma Nicolas Ma Allergies As of Date: 08/28/2024 Noted Allergy Reaction PENICILLINS 08/27/2014 14 - Other: See Comments Comments: Respiratory distress as a baby DALIRESP (ROFLUMILAST) 07/14/2024 2 - Rash Date Reviewed: 08/10/2024 Reviewed by: Puma Nicolas MA - Fully Assessed Reason for Visit: Internal Referrals/resources [908] Prescriptions as of 08/28/2024 - clopidogrel (PLAVIX) 75 mg tablet Take 1 tablet by mouth once daily. Patient should start on August 05, 2024. - acetaminophen (TYLENOL) 325 mg tablet Take 2 tablets by mouth every 6 hours. - docusate sodium (COLACE) 100 mg capsule Take 1 capsule by mouth two times a day. - cyclobenzaprine (FLEXERIL) 10 mg tablet Take 1 tablet by mouth three times a day as needed. - polyethylene glycol 3350 17 gram packet Take 1 Packet by mouth once daily as needed. Dissolve dose in 4 - 8 ounces of liquid and take as directed. - BREZTRI AEROSPHERE 160-9-4.8 mcg/actuation HFA aerosol inhaler INHALE 2 PUFFS TWICE DAILY, RINSE MOUTH AND THROAT AFTER USE. - omeprazole (PRILOSEC) 10 mg capsule Take 10 mg by mouth once daily. - nicotine polacrilex (NICORETTE) 4 mg gum Take 1 Each by mouth as needed. - albuterol HFA (PROVENTIL HFA, VENTOLIN HFA) 90 mcg/actuation inhaler Inhale 2 Puffs as instructed every 4 hours as needed for wheezing/shortness of breath. - albuterol (PROVENTIL) 2.5 mg /3 mL (0.083 %) nebulizer solution Use 3 mL via nebulizer every 4 hours as needed for wheezing/shortness of breath. Inhale over 5-15 minutes - atorvastatin (LIPITOR) 80 mg tablet Take 80 mg by mouth once daily. - montelukast (SINGULAIR) 10 mg tablet Take 1 tablet by mouth daily at bedtime. - budesonide (PULMICORT) 0.5 mg/2 mL nebulizer solution Use 2 mL via nebulizer two times a day. - lisinopril 2.5 mg tablet Take 2.5 mg by mouth once daily. Problem List As Of Date 08/28/2024 Noted Resolved Chronic bronchitis (HCC) [J42] 08/20/2023 Wheezing [R06.2] 08/20/2023 Chronic obstructive pulmonary disease with acut*08/20/2023 12/01/2023 Nicotine use disorder [F17.200] 08/20/2023 Morbid obesity (HCC) [E66.01] 08/20/2023 Lung nodules [R91.8] 11/11/2023 Severe persistent asthma [J45.50] 11/11/2023 Hyponatremia [E87.1] 12/01/2023 Lumbar stenosis [M48.061] 12/01/2023 Elevated troponin [R79.89] 12/01/2023 COPD with acute exacerbation (HCC) [J44.1] 12/01/2023 ETOH abuse [F10.10] 12/01/2023 Obesity, Class III, BMI >= 40 [E66.01] 12/01/2023 Pre-op examination [Z01.818] 07/10/2024 Spinal stenosis of lumbar region with neurogeni*07/10/2024 Cerebral infarction due to occlusion of left po*07/10/2024 Gastroesophageal reflux disease [K21.9] 07/10/2024 Hyperlipidemia [E78.5] 07/10/2024 HTN (hypertension) [I10] 07/10/2024 RBBB (right bundle branch block) [I45.10] 07/14/2024 Cerebrovascular accident (CVA) (HCC) [I63.9] 07/14/2024 Tobacco user [Z72.0] 07/14/2024 Spinal stenosis, lumbar region, without neuroge*07/28/2024 Encounter Status:Closed by PUMA NICOLAS MA on 08/28/24 Normal [facility] CNOVon 08-10-2024 CNOV Office Visit (NEAGCLM) ELIS BILLS ([id number]) 1960 M Date Time Provider Department 08/10/24 1:00 PM LOIS KEE NEAGCLM During your visit today, we recorded the following information about you: Pulse Blood pressure Weight Height 63/minute 170/90 116.8 kg 1.753 m Lois Kee MD 08/10/2024 1:30 PM Signed NEUROSURGERY POST-OP NOTE Lois Kee MD [facility] Date of visit: August 10, 2024 Patient Name: Mr.Donald Tim Bills Date of : 1960 Current Age: [age] year old Sex: male MRN/E# [id number] Last Office Visit: 08/02/2024 SURGERY: L1 decompression laminectomy - 07/28/2024 Pre-Surgical Symptoms: right low back pain Past Medical/Surgical History: Elis Bills is a 63 year old male who is referred by Bertha Schumacher APRN, CNP with pain management for neurosurgical evaluation. The patient has a history of COPD, hypercholesterolemia, stroke. +NICOTINE HPI: Patient is having their 2 week post operative visit. Mr. Bills was seen last in the office on 06/05/2024 for right sided low back pain and imaging revealed a significant amount of epidural lipomatosis causing severe stenosis at L2-3 and L3-4. He also had retrolisthesis at L4 over L5 and likely pars defect at that level. Given the findings, he underwent procedure above. Patient feels that surgery went well and resolved his presurgical low back pain. He has some low back pain to the incisional area. He denies any paresthesia, weakness, falls. He is pleased with his progress. Incision: Dry and intact, without redness - tiffani removed, tolerated well Current Outpatient Medications Medication Sig Dispense Refill clopidogrel (PLAVIX) 75 mg tablet Take 1 tablet by mouth once daily. Patient should start on August 05, 2024. acetaminophen (TYLENOL) 325 mg tablet Take 2 tablets by mouth every 6 hours. docusate sodium (COLACE) 100 mg capsule Take 1 capsule by mouth two times a day. cyclobenzaprine (FLEXERIL) 10 mg tablet Take 1 tablet by mouth three times a day as needed. 15 tablet 0 polyethylene glycol 3350 17 gram packet Take 1 Packet by mouth once daily as needed. Dissolve dose in 4 - 8 ounces of liquid and take as directed. BREZTRI AEROSPHERE 160-9-4.8 mcg/actuation HFA aerosol inhaler INHALE 2 PUFFS TWICE DAILY, RINSE MOUTH AND THROAT AFTER USE. omeprazole (PRILOSEC) 10 mg capsule Take 10 mg by mouth once daily. nicotine polacrilex (NICORETTE) 4 mg gum Take 1 Each by mouth as needed. 300 Each 3 albuterol HFA (PROVENTIL HFA, VENTOLIN HFA) 90 mcg/actuation inhaler Inhale 2 Puffs as instructed every 4 hours as needed for wheezing/shortness of breath. 3 Each 3 albuterol (PROVENTIL) 2.5 mg /3 mL (0.083 %) nebulizer solution Use 3 mL via nebulizer every 4 hours as needed for wheezing/shortness of breath. Inhale over 5-15 minutes atorvastatin (LIPITOR) 80 mg tablet Take 80 mg by mouth once daily. montelukast (SINGULAIR) 10 mg tablet Take 1 tablet by mouth daily at bedtime. 90 tablet 3 budesonide (PULMICORT) 0.5 mg/2 mL nebulizer solution Use 2 mL via nebulizer two times a day. 360 mL 3 lisinopril 2.5 mg tablet Take 2.5 mg by mouth once daily. No current facility-administered medications for this visit. Objective Review of Systems Constitutional: Negative for chills, fatigue and fever. HENT: Negative for ear pain, hearing loss and tinnitus. Eyes: Negative for photophobia, pain and visual disturbance. Respiratory: Negative for shortness of breath. Cardiovascular: Negative for chest pain. Gastrointestinal: Negative for constipation, diarrhea, nausea and vomiting. Endocrine: Negative for polydipsia, polyphagia and polyuria. Genitourinary: Negative for difficulty urinating, frequency and urgency. Musculoskeletal: Positive for back pain. Negative for gait problem, neck pain and neck stiffness. Skin: Negative for color change. Neurological: Negative for dizziness, weakness, light-headedness and numbness. Psychiatric/Behaviora l: Negative for agitation and confusion. The patient is not nervous/anxious. PHYSICAL EXAM: Mental State : Alert, memory function unremarkable. Attention span and concentration normal for patient's age. Speech normal, no receptive or expressive speech deficit. Recent and remote memory normal. Orientation : Oriented to person, place and time. Cranial Nerves : Grossly intact. Sensory: Normal Sensation in upper and lower extremities and trunk to touch and noxious stimuli. Motor: Normal muscle tone and bulk. No tremor or uncontrollable movements. No spasticity or tremor. Gait and Station: Casual gait is normal including stance, stride, and arm swing. STRENGTH: Upper Extremity Strength Exam Right Left Elbow Flexion 5/5 5/5 Elbow Extension 5/5 5/5 Finger Flexion 5/5 5/5 Finger Extension 5/5 5/5 Finger Abduction 5/5 5/5 Lower Extremity Strength Exam (more content not included)... Normal [facility] Basic metabolic 2000 panelon 07-29-2024 Anion gap [Moles/Vol] 10 mmol/L Normal 8-15 [facility] Comment on above: Order Comment: Speci men Type: BLOOD SPECIMENOrdering Facility: [facility] Address: [address] [place] [address] Performed By: #### 2 692-2, 54488-4 ####[facility] LABORATORYCLIA [id number] [place] [address] [place] Calcium [Mass/Vol] 8.6 mg/dL Normal 8.5-10.2 [facility] Comment on above: Order Comment: Speci men Type: BLOOD SPECIMENOrdering Facility: [facility] Address: [address] [place] [address] Performed By: #### 2 692-2, 43341-0 ####[facility] LABORATORYCLIA [id number] [place] [address] [place] Chloride [Moles/Vol] 86 mmol/L Low 98-107 [facility] Comment on above: Order Comment: Speci men Type: BLOOD SPECIMENOrdering Facility: [facility] Address: [address] [place] [address] Performed By: #### 2 692-2, 79296-7 ####[facility] LABORATORYCLIA [id number] [address] CO2 [Moles/Vol] 25 mmol/L Normal 22-30 [facility] Comment on above: Order Comment: Speci men Type: BLOOD SPECIMENOrdering Facility: [facility] Address: [address] [place] [address] Performed By: #### 2 692-2, 46326-2 ####[facility]ITAL[facility]IA [id number] [address] Creatinine [Mass/Vol] 0.98 mg/dL Normal 0.73-1.22 [facility] Comment on above: Order Comment: Speci men Type: BLOOD SPECIMENOrdering Facility: [facility] Address: [address] [place] [address] Performed By: #### 2 692-2, 16377-2 ####[facility]ITALCLIA [id number] [address] Creatinine and Glomerular filtration rate.predicted panel (S/P/Bld) 86 mL/min/1.73m??? Normal >=60 [facility] Comment on above: Order Comment: Speci men Type: BLOOD SPECIMENOrdering Facility: [facility] Address: [address] [place] [address] Result Comment: Lala mated Glomerular Filtration Rate (eGFR) is calculated using the 2020 CKD-EPI creatinine equation. This equation utilizes serum creatinine, sex, and age as parameters. The creatinine assay has traceable calibration to isotope dilution-mass spectrometry. Refer to KDIGO guidelines for clinical interpretation. In patients with unstable renal function, e.g. those with acute kidney injury, the eGFR may not accurately reflect actual GFR. Performed By: #### 2 692-2, 97616-0 ####[facility] LABORATORYCLIA [id number] [place] [address] [place] Glucose [Mass/Vol] 113 mg/dL High 74-99 [facility] Comment on above: Order Comment: Wilbert torres Type: BLOOD SPECIMENOrdering Facility: [facility] Address: [address] [place] [address] Result Comment: The [place] Diabetes [employer] (ADA) provides guidance for cutoff values for fasting glucose and random glucose. The ADA defines fasting as no caloric intake for at least 8 hours. Fasting plasma glucose results between 100 to 125 mg/dL indicate increased risk for diabetes (prediabetes). Fasting plasma glucose results greater than or equal to 126 mg/dL meet the criteria for diagnosis of diabetes. In the absence of unequivocal hyperglycemia, results should be confirmed by repeat testing. In a patient with classic symptoms of hyperglycemia or hyperglycemic crisis, random plasma glucose results greater than or equal to 200 mg/dL meet the criteria for diagnosis of diabetes. Reference: Standards of Medical Care in Diabetes 2016, [place] [employer]. Diabetes Care. 2016.39(Suppl 1). Performed By: #### 2 692-2, 08193-6 ####[facility] LABORATORYCLIA [id number] [place] [address] [place] Potassium [Moles/Vol] 5.3 mmol/L High 3.7-5.1 [facility] Comment on above: Order Comment: Wilbert torres Type: BLOOD SPECIMENOrdering Facility: [facility] Address: [address] [place] [address] Performed By: #### 2 692-2, 72162-8 ####[facility] LABORATORYCLIA [id number] [place] [address] [place] Sodium [Moles/Vol] 121 mmol/L Low 136-144 [facility] Comment on above: Order Comment: Wilbert torres Type: BLOOD SPECIMENOrdering Facility: [facility] Address: [address] [place] [address] Performed By: #### 2 692-2, 41550-8 ####[facility]ORATORYCLIA [id number] [place] [address] [place] Urea nitrogen [Mass/Vol] 11 mg/dL Normal 9-24 [facility] Comment on above: Order Comment: Speci men Type: BLOOD SPECIMENOrdering Facility: [facility] Address: [facility] [place] [id number] Performed By: #### 2 692-2, 84126-4 ####[facility] LABORATORYCLIA [id number] [place] [address] [facility] CASE MANAGEMon 07-29-2024 CASE MANAGEM HNO ID: [id number] Author: AUSTIN WALLACE RN Service: ? Author Type: Registered Nurse Type: Care Mgt Progress Note Filed: 07/31/2024 09:16 Note Text: CARE MANAGEMENT UTILIZATION REVIEW COMMITTEE PROVIDER LIABLE (Admission Status Discrepancy Review) Admission Date: 07/28/2024 Patient's Initial Order is: Inpatient Date Received: July 31, 2024 Date Reviewed: July 31, 2024 Under the authority of the Utilization Management Committee, the Physician Advisor, Dr. Efraín Gonzalez, has reviewed the medical record of the above patient. The following recommendation has been made by the Physician Advisor, based upon the current available medical information as of the date of this determination. The patient is appropriate for: Observation Rationale for this decision: Lack of medical necessity for inpatient admission and less than 2 midnight stay SIGNATURE: Austin Wallace RN PATIENT NAME: Elis Bills DATE: July 31, 2024 TIME: 9:16 AM Disclaimer: The information in this determination is to be used for utilization management purposes only. The information and recommendation is made pursuant to Medicare Hospital Conditions of Participation (442 CFR Part 482) and is neither a judgment nor an assessment with regard to the appropriateness or quality of the clinical care. Nothing in this document may be used to limit clinical services provided to the above named patient. This form should be used as one part of the process utilized to ensure compliance with [facility] policy regarding Inpatient Admission and Observation Services. The definitions of Inpatient and Observation used in making the determination above are those provided in Medicare Benefit Policy Manual Chapter 1, Section 1 and 10, Chapter 6, Section 20, and the Medicare Claims Processing Manual Chapter 1, Section 50.3 and Chapter 4, Section 290. This recommendation should be considered as only one factor in determining the patient's final level of service along with other pertinent documentation such as the treating physician's order as documented evidence of concurrence. Normal [facility] CBC panel Auto (Bld)on 07-29 Erythrocyte distribution width (RBC) [Ratio] 13.4 % Normal 11.5-15.0 [facility] Comment on above: Order Comment: Speci men Type: BLOOD SPECIMENOrdering Facility: [facility] Address: [address] [place] [address] Performed By: #### 3 2355-0 #### [facility] CLIA [id number] [address] OF [facility] Hematocrit (Bld) [Volume fraction] 38.0 % Low 39.0-51.0 [facility] Comment on above: Order Comment: Speci men Type: BLOOD SPECIMENOrdering Facility: [facility] Address: [address] [place] [address] Performed By: #### 3 2355-0 #### [facility] CLIA [id number] [address] OF [facility] Hemoglobin (Bld) [Mass/Vol] 12.7 g/dL Low 13.0-17.0 [facility] Comment on above: Order Comment: Speci men Type: BLOOD SPECIMENOrdering Facility: [facility] Address: [address] [place] [address] Performed By: #### 3 2355-0 #### [facility] CLIA [id number] [address] [facility] MCH (RBC) [Entitic mass] 28.8 pg Normal 26.0-34.0 [facility] Comment on above: Order Comment: Speci men Type: BLOOD SPECIMENOrdering Facility: [facility] Address: [address] [place] [address] Performed By: #### 3 2355-0 #### [facility] CLIA [id number] [address] MCHC (RBC) [Mass/Vol] 33.4 g/dL Normal 30.5-36.0 [facility] Comment on above: Order Comment: Speci men Type: BLOOD SPECIMENOrdering Facility: [facility] Address: [address] [place] [address] Performed By: #### 3 2355-0 #### [facility] CLIA [id number] [address] MCV (RBC) [Entitic vol] 86.2 fL Normal 80.0-100.0 [facility] Comment on above: Order Comment: Speci men Type: BLOOD SPECIMENOrdering Facility: [facility] Address: [address] [place] [address] Performed By: #### 3 2355-0 #### [facility] CLIA [id number] [address] Nucleated RBC (Bld) [#/Vol] 10*3/uL Normal <0.01 [facility] Comment on above: Order Comment: Speci men Type: BLOOD SPECIMENOrdering Facility: [facility] Address: [facility] [place] [address] Performed By: #### 3 2355-0 #### [facility] CLIA [id number] [address] [place] Platelet mean volume (Bld) [Entitic vol] 9.3 fL Normal 9.0-12.7 [facility] Comment on above: Order Comment: Speci men Type: BLOOD SPECIMENOrdering Facility: [facility] Address: [address] [place] [address] Performed By: #### 3 2355-0 #### [facility] CLIA [id number] [address] Platelets (Bld) [#/Vol] 296 10*3/uL Normal 150-400 [facility] Comment on above: Order Comment: Speci men Type: BLOOD SPECIMENOrdering Facility: [facility] Address: [facility] [place] [address] Performed By: #### 3 2355-0 #### [facility] CLIA [id number] [address] [place] RBC (Bld) [#/Vol] 4.41 10*6/uL Normal 4.20-6.00 [facility] Comment on above: Order Comment: Karthikeyanoswaldo torres Type: BLOOD SPECIMENOrdering Facility: [facility] Address: [address] [place] [address] Performed By: #### 3 2355-0 #### [facility] CLIA [id number] [address] WBC (Bld) [#/Vol] 12.07 10*3/uL High 3.70-11.00 [facility] Comment on above: Order Comment: Wilbert torres Type: BLOOD SPECIMENOrdering Facility: [facility] Address: [address] [place] [address] Performed By: #### 3 2355-0 #### [facility] CLIA [id number] [address] CNDSon 07-29-2024 [facility] HNO ID: [id number] Author: ISABELLA SANTACRUZ PA-C Service: Neurosurgery Author Type: Physician Transition Rn Type: Discharge Summary Filed: 07/29/2024 15:16 Note Text: Attestation signed by Lois Kee MD at 07/29/2024 3:22 PM I agree with the discharge summary as written below. Lois Kee MD DISCHARGE SUMMARY PATIENT NAME: Elis Bills Code Status: Not on file ADMISSION DATE: 07/28/2024 DISCHARGE DATE: July 29, 2024 Highest Readmission Risk Score: 6 The 30 day readmissions risk score is derived from an internally validated risk model which evaluates patient level characteristics, utilization history, medication orders and lab results up until the day of discharge. Patients with a score of 40 or above are considered highest risk for readmission. Specific patient level drivers are listed below. The patient's risk for 30-day readmission is determined using the following contributing factors: 13 Active Medication Orders 11 Most Recent BUN Result 8.1 First Resulted Calcium During Admission 1 Insurance - Medicare 1 History of Anemia REASON FOR HOSPITALIZATION: elective spine surgery DIAGNOSIS: Principal Problem: Spinal stenosis, lumbar region, without neurogenic claudication (POA: Yes) Active Problems: Chronic bronchitis (HCC) (POA: Yes) Nicotine use disorder (POA: Yes) Morbid obesity (HCC) (POA: Yes) Severe persistent asthma (POA: Yes) Hyponatremia (POA: Yes) Gastroesophageal reflux disease (POA: Yes) Hyperlipidemia (POA: Yes) HTN (hypertension) (POA: Yes) RBBB (right bundle branch block) (POA: Yes) Cerebrovascular accident (CVA) (HCC) (POA: Yes) Resolved Problems: * No resolved hospital problems. * HOSPITAL COURSE: you had surgery as planned without complication. You were then taken to recovery and ultimately to 8100 for excellent nursing care, pain control and therapy. You did very well with your recovery and on day 1 you were ambulating with therapy, voiding without issue and tolerating your diet. Your pain was well controlled and you were found to be stable for discharge home. CONSULTING TEAMS DURING HOSPITALIZATION: None PATIENT CONDITION AT DISCHARGE: Stable DISCHARGE DISPOSITION: Home with Self Care Discharge Physical Exam: VITAL SIGNS: BP 135/66 Pulse 78 Temp 36.9 ?C (98.5 ?F) (Oral) Resp 18 Ht 175.3 cm (5' 9) Wt 107.1 kg (236 lb 1.8 oz) SpO2 96% BMI 34.87 kg/m? GENERAL: Alert, no distress, cooperative, Obese BACK: Back symmetric, Normal curvature, ROM normal, No CVAT., drain removed; incision covered, dressing dry and clean NEURO: Grossly normal cognition, motor function, and cranial nerves III-XII The remainder of the physical exam is noncontributory. INFORMATION PROVIDED TO PATIENT: see D/C instructions ALLERGIES No Known Allergies DISCHARGE MEDICATION: Medication List START taking these medications acetaminophen 325 mg tablet Commonly known as: TYLENOL Take 2 tablets by mouth every 6 hours. cyclobenzaprine 10 mg tablet Commonly known as: FLEXERIL Take 1 tablet by mouth three times a day as needed. docusate sodium 100 mg capsule Commonly known as: COLACE Take 1 capsule by mouth two times a day. oxyCODONE IR 5 mg immediate release tablet Commonly known as: ROXICODONE Take 1 tablet by mouth every 8 hours as needed for up to 3 days. polyethylene glycol 3350 17 gram packet Take 1 Packet by mouth once daily as needed. Dissolve dose in 4 - 8 ounces of liquid and take as directed. CHANGE how you take these medications clopidogrel 75 mg tablet Commonly known as: PLAVIX Take 1 tablet by mouth once daily. Patient should start on August 05, 2024. Start taking on: August 05, 2024 What changed: These instructions start on August 05, 2024. If you are unsure what to do until then, ask your doctor or other care provider. CONTINUE taking these medications * albuterol 2.5 mg /3 mL (0.083 %) nebulizer solution Commonly known as: PROVENTIL Use 3 mL via nebulizer every 4 hours as needed for wheezing/shortness of breath. Inhale over 5-15 minutes * albuterol HFA 90 mcg/actuation inhaler Commonly known as: PROVENTIL HFA, VENTOLIN HFA Inhale 2 Puffs as instructed every 4 hours as needed for wheezing/shortness of breath. atorvastatin 80 mg tablet Commonly known as: LIPITOR BREZTRI AEROSPHERE 160-9-4.8 mcg/actuation HFA aerosol inhaler Generic drug: qfthdwfxro-ycbxqcit-o ormoterol budesonide 0.5 mg/2 mL nebulizer solution Commonly known as: PULMICORT Use 2 mL via nebulizer two times a day. lisinopril 2.5 mg tablet montelukast 10 mg tablet Commonly known as: SINGULAIR Take 1 tablet by mouth daily at bedtime. nicotine polacrilex 4 mg gum Commonly known as: NICORETTE Take 1 Each by mouth as needed. omeprazo (more content not included)... Normal [facility] CONSULTon 07-29-2024 CONSULT HNO ID: [id number] Author: RADHA LUO MD Service: Nephrology Author Type: Physician Type: Consults Filed: 07/29/2024 15:11 Note Text: Elis Bills is a 64-year-old male who was admitted for laminectomy, discectomy for lumbar spine stenosis with neurogenic claudication. Nephrology on consultation in view of hyponatremia. Sodium was 121 on admission. Increased to 127/128 today. On review of records, it seems she has longstanding mild hyponatremia. He was admitted at the hospital about 7 months ago with hyponatremia, improved with IV fluids. His last sodium on 14 July, about 2 weeks ago was 127. This admission he came with a sodium of 121, increased to 128 today. ROS negative except above . PAST MEDICAL HISTORY Diagnosis Date COPD (chronic obstructive pulmonary disease) (HCC) Hypercholesteremia Lung nodules Spinal stenosis of lumbar region with neurogenic claudication Stroke (HCC) Unspecified right bundle-branch block PAST SURGICAL HISTORY Procedure Laterality Date PILONIDAL CYST/SINUS EXCISION TOTAL HIP REPLACEMENT Bilateral Social History Tobacco Use Smoking status: Former Current packs/day: 0.50 Types: Cigarettes Smokeless tobacco: Never Tobacco comments: Quit smoking a week or so ago (04/06/24) Smoked for about 35 years 1- 2 ppd Vaping Use Vaping status: Never Used Substance Use Topics Alcohol use: Yes Comment: 30 cans beer per week Drug use: Never Current Facility-Administered Medications Medication Dose Route Frequency Provider Last Rate Last Admin methocarbamol 750 mg tab(s) (ROBAXIN) 750 mg ORAL TID Isabella Santacruz PA-C 750 mg at 07/29/24 1234 atorvastatin 80 mg tab(s) (LIPITOR) 80 mg ORAL AT BEDTIME Lisandro Fulton PA-C 80 mg at 07/28/242004 albuterol 2.5 mg /3 mL (0.083 %) 2.5 mg (PROVENTIL) 2.5 mg INHALATION q 4 H PRN Lisandro Fulton PA-C budesonide 0.5 mg/2 mL 0.5 mg (PULMICORT) 0.5 mg INHALATION BID Lisandro Fulton PA-C 0.5 mg at 07/29/24 0846 montelukast 10 mg tab(s) (SINGULAIR) 10 mg ORAL AT BEDTIME Lisandro Fulton PA-C 10 mg at 07/28/242004 acetaminophen 650 mg tab(s) (TYLENOL) 650 mg ORAL q 6 H Lisandro Fulton PA-C 650 mg at 07/29/24 1234 oxyCODONE IR 5-10 mg tab(s) (ROXICODONE) 5-10 mg ORAL q 4 H PRN Lisandro Fulton PA-C magnesium hydroxide 400 mg/5 mL 30 mL (MOM) 30 mL ORAL DAILY PRN Lisandro Fulton PA-C docusate sodium 100 mg cap(s) (COLACE) 100 mg ORAL BID Lisandro Fulton PA-C 100 mg at 07/29/24 0904 polyethylene glycol 3350 17 g packet 17 g ORAL DAILY PRN Lisandro Fulton PA-C [START ON 07/30/2024] bisacodyl 10 mg suppository (DULCOLAX) 10 mg RECTAL DAILY PRN Lisandro Fulton PA-C NaCl 0.9% iv flush bag 20 mL INTRAVENOUS PRN Lisandro Fulton PA-C pantoprazole 10 mg oral liquid (PROTONIX) 10 mg ORAL DAILY (6 AM) Lisandro Fulton PA-C 10 mg at 07/29/24 0609 mometasone 220 mcg/ actuation (14) 1 Puff inhaler (ASMANEX) 1 Puff INHALATION DAILY Lisandro Fulton PA-C 1 Puff at 07/29/24 0904 And tiotropium 2.5 mcg - olodaterol 2.5 mcg inhaler (STIOLTO RESPIMAT) 2 Puff INHALATION DAILY Lisandro Fulton PA-C 2 Puff at 07/29/24 0904 BREZTRI AEROSPHERE 160-9-4.8 mcg/actuation HFA aerosol inhaler, INHALE 2 PUFFS TWICE DAILY, RINSE MOUTH AND THROAT AFTER USE., Disp: , Rfl: , 07/27/2024 nicotine polacrilex (NICORETTE) 4 mg gum, Take 1 Each by mouth as needed., Disp: 300 Each, Rfl: 3, 07/28/2024 at 0935 albuterol HFA (PROVENTIL HFA, VENTOLIN HFA) 90 mcg/actuation inhaler, Inhale 2 Puffs as instructed every 4 hours as needed for wheezing/shortness of breath., Disp: 3 Each, Rfl: 3, 07/27/2024 albuterol (PROVENTIL) 2.5 mg /3 mL (0.083 %) nebulizer solution, Use 3 mL via nebulizer every 4 hours as needed for wheezing/shortness of breath. Inhale over 5-15 minutes, Disp: , Rfl: , 07/27/2024 budesonide (PULMICORT) 0.5 mg/2 mL nebulizer solution, Use 2 mL via nebulizer two times a day., Disp: 360 mL, Rfl: 3, 07/27/2024 omeprazole (PRILOSEC) 10 mg capsule, Take 10 mg by mouth once daily., Disp: , Rfl: , 07/20/2024 atorvastatin (LIPITOR) 80 mg tablet, Take 80 mg by mouth once daily., Disp: , Rfl: , 07/20/2024 montelukast (SINGULAIR) 10 mg tablet, Take 1 tablet by mouth daily at bedtime., Disp: 90 tablet, Rfl: 3, 07/20/2024 lisinopril 2.5 mg tablet, Take 2.5 mg by mouth once daily., Disp: , Rfl: , 07/20/2024 clopidogrel (PLAVIX) 75 mg tablet, Take 75 mg by mouth once daily., Disp: , Rfl: , 07/20/2024 ALLERGIES Allergen Reactions Penicillins Other: See Comments Respiratory distress as a baby Daliresp [Roflumila* Rash 07/29/24 0321 07/29/24 0747 07/29/24 0848 07/29/24 1101 BP: 132/65 128/75 135/66 Pulse: 66 73 79 78 Resp: 18 18 18 18 Temp: 36.5 ?C (97.7 ?F) 36.5 ?C (97.7 ?F) 36.9 ?C (98.5 ?F) TempSrc: Oral Oral Oral SpO2: 95% 96% 96% 96% Weight: Height: General. No obvious distress HEENT. No pallor, icterus, JVD Heart S1, S2 Lungs (more content not included)... Normal [facility] CONSULT PROGon 07-29-2024 CONSULT PROG HNO ID: [id number] Author: OBIE CHANG DO Service: Hospital Medicine Author Type: Physician Type: Consult Progress Note Filed: 07/29/2024 11:02 Note Text: DEPARTMENT OF HOSPITAL MEDICINE CONSULT PROGRESS NOTE SERVICE DATE: 07/29/2024 SERVICE TIME: 10:52 AM Primary Care Physician: Pilar Steele, DO NIGHT AND WEEKEND COVERAGE: [place] COVERAGE: After 7pm, please call cross cover pager #[phone] Subjective INTERVAL HPI: 64-year-old male with past medical history of COPD not on home O2, hypertension, history of CVA with no residual deficits, right bundle branch block, longstanding lumbar stenosis that had failed conservative management presenting today for decompression, laminectomy. Medicine consulted for perioperative optimization. Overnight Na was 121 at 0300. Currently 129. No labs prior to surgery. Last Na check 127 on 07/14/24 MEDICATIONS: Reviewed Current Facility-Administered Medications Medication Dose Route Frequency atorvastatin 80 mg tab(s) (LIPITOR) 80 mg ORAL AT BEDTIME lisinopril 2.5 mg tab(s) 2.5 mg ORAL DAILY albuterol 2.5 mg /3 mL (0.083 %) 2.5 mg (PROVENTIL) 2.5 mg INHALATION q 4 H PRN budesonide 0.5 mg/2 mL 0.5 mg (PULMICORT) 0.5 mg INHALATION BID montelukast 10 mg tab(s) (SINGULAIR) 10 mg ORAL AT BEDTIME acetaminophen 650 mg tab(s) (TYLENOL) 650 mg ORAL q 6 H oxyCODONE IR 5-10 mg tab(s) (ROXICODONE) 5-10 mg ORAL q 4 H PRN magnesium hydroxide 400 mg/5 mL 30 mL (MOM) 30 mL ORAL DAILY PRN docusate sodium 100 mg cap(s) (COLACE) 100 mg ORAL BID polyethylene glycol 3350 17 g packet 17 g ORAL DAILY PRN [START ON 07/30/2024] bisacodyl 10 mg suppository (DULCOLAX) 10 mg RECTAL DAILY PRN NaCl 0.9% iv flush bag 20 mL INTRAVENOUS PRN NaCl 0.9% iv infusion 75 mL/hr INTRAVENOUS CONTINUOUS pantoprazole 10 mg oral liquid (PROTONIX) 10 mg ORAL DAILY (6 AM) mometasone 220 mcg/ actuation (14) 1 Puff inhaler (ASMANEX) 1 Puff INHALATION DAILY And tiotropium 2.5 mcg - olodaterol 2.5 mcg inhaler (STIOLTO RESPIMAT) 2 Puff INHALATION DAILY methocarbamol 750 mg tab(s) (ROBAXIN) 750 mg ORAL TID Objective PHYSICAL EXAM: BP 128/75 Pulse 79 Temp (Src) 97.7 (Oral) Resp 18 Ht 5' 9 (1.75m) Wt 236 lb 1.8 oz (107.1kg) SpO2 96% BMI 34.85 kg/(m2). O2 Therapy: Room Air General: NAD, well developed, vitals as above HENT: Normocephalic, atraumatic, mucous membranes moist Eyes: No scleral icterus, extraocular movements intact, Conjuctivae normal, PERRL Cardiovascular: RRR, No murmur, no gallops, radial pulses 2+ bilaterally, no edema Pulmonary: Respiratory effort normal, no resp distress. CTAB, no wheezes, rhonchi or rales. Abdominal: No distention, abdomen soft. No mass. Nontender to palpation MSK: normal range of motion, no joint swelling Skin: Warm and dry Neurological: No focal deficits presents. CN 2-12 grossly intact. Psych: Alert, oriented x 3, appropriate mood Lines, Drains, and Airways Line Duration Peripheral 07/28/24 0931 [facility] Short Right Hand 18 Gauge 1 day Drain Duration Drain/Tube 07/28/24 1349 Hemovac Midline Medial;Lower Back <1 day DATA: Diagnostic tests reviewed for today's visit: Most recent labs and imaging results. Impression/Recommenda tions Principal Problem: #-Hyponatremia -last serum sodium 07/14/2024 noted to be low at 127 121->129 overnight True hyponatremia Urine Na low - suspect hypovolemia Encourage PO hydration Stop IVF given overcorrection Nephrology consulted #History of CVA with no residual deficits posterior circulation ischemic stroke, continue atorvastatin, resume Plavix when okay with surgery team #History of COPD-does not appear to be in exacerbation now, continue steroid inhaler, tiotropium and as needed albuterol. #Hypertension continue lisinopril 2.5 mg p.o. daily, check BMP #Lumbar spinal stenosis with neurogenic claudication-status postlaminectomy discectomy, management per primary team. #Known right bundle branch block #GERD continue Protonix 10 mg p.o. daily, resume omeprazole upon discharge. Morbid Obesity Class 3 Resolved Problems: * No resolved hospital problems. * Plan of care discussed with: Provider, RN, Patient SIGNATURE: Obie Chang DO PATIENT NAME: Elis Bills DATE: July 29, 2024 TIME: 10:52 AM etx [id number] Normal [facility] Osmolality SerPlon 5 Osmolality [Osmolality] 270 mosm/kg Low 275-300 [facility] Comment on above: Order Comment: Speci men Type: BLOOD SPECIMENOrdering Facility: [facility] Address: [address] [place] [address] Performed By: #### 2 692-2, 26915-5 ####[facility] [id number] [place] [address] [place] Osmolality Uron 07-29-2024 Osmolality (U) [Osmolality] 368 mosm/kg Normal 50-1200 [facility] Comment on above: Order Comment: Speci men Type: URINE SPECIMENOrdering Facility: [facility] Address: [address] [place] [address] Performed By: #### 6 00-7 #### [facility] CLIA [id number] [address] [place] [address] [place] Sodium ?Tm Ur-sCncon 025 Sodium Unsp time (U) [Moles/Vol] <20 Normal 14-216 [facility] Comment on above: Order Comment: Speci men Type: URINE SPECIMENOrdering Facility: [facility] Address: [address] [place] [address] Performed By: #### 6 00-7 #### [facility] CLIA [id number] [address] [place] [address] [place] Sodium SerPl-sCncon 07-29-19 25 Sodium [Moles/Vol] 128 mmol/L Low 136-144 [facility] Comment on above: Order Comment: Speci men Type: BLOOD SPECIMENOrdering Facility: [facility] Address: [address] [place] [address] Performed By: #### 6 00-7 #### [facility] CLIA [id number] [address] Sodium [Moles/Vol] 129 mmol/L Low 136-144 [facility] Comment on above: Order Comment: Speci men Type: BLOOD SPECIMENOrdering Facility: [facility] Address: [address] [place] [address] Performed By: #### 2 951-2 ####[facility]ORY[facility] [id number] [address] Sodium [Moles/Vol] 125 mmol/L Low 136-144 [facility] Comment on above: Order Comment: Speci men Type: BLOOD SPECIMENOrdering Facility: [facility] Address: [address] [place] [address] Performed By: #### 2 951-2 ####[facility]ORYCLIA [id number] [address] THERAPY NTon 07-29-2024 THERAPY NT HNO ID: [id number] Author: FLORENCE ALEXANDRE OTR/L Service: Occupational Therapy Author Type: Occupational Therapist Type: Therapy (PT/OT/Speech/Resp) Filed: 07/29/2024 11:40 Note Text: Occupational Therapy Evaluation Summary SERVICE DATE: 07/29/2024 SERVICE TIME: 0949 to 1004 ROOM: [place] [address] OT 6 Clicks Score: 21 DISCHARGE RECOMMENDATIONS Home Recommended Discharge Disposition Comments: with assist PRN for ADLs and IADLs Anticipated Discharge Needs: Physical Assist at Home Physical Assist at Home for: Cleaning, Laundry, Self Care ASSESSMENT Response to Therapy Interventions: Good Participation in Activities PRECAUTIONS Fall Risk, Spine CURRENT HOSPITAL COURSE 64 y.o male s/p decompression lami L1 1/10 Relevant Past Medical History: COPD, HTN, CVA, lumbar stenosis HOME LIVING Patient Lives With: Spouse Assistance Available: 24-Hour Entry To Home: Stairs Number Of Stairs Into Home: 3 Number Of Stairs To Bed/Bath: 0 Tub/Shower Type: walk in shower Laundry: spouse can complete Equipment Owned: (none) PRIOR FUNCTIONAL LEVEL Within Functional Limits Patient independent [employer], 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, working Baseline Cognition: Oriented to self, Oriented to place, Oriented to time, Oriented to situation SUBJECTIVE agreeable to session COGNITION Responsiveness: Alert Follows Commands: 3-step Commands THERAPY DIAGNOSIS Reduced mobility-other, Decreased activities of daily living (ADL) TREATMENT INTERVENTIONS Evaluation Skilled Treatment Time (minutes): 15 $ Evaluation - Low (63256) Billed Units: 1 unit Educated patient on BLT (no Bending, Lifting, Twisting) precautions to protect spine with ADLs / IADLs. Provided handout. Educated pt on LB dressing technique while maintaining precautions (avoiding excessive bending). TRAINING AND EDUCATION PROVIDED Activity Adaptation/Compensato ry Strategies, Adaptive Equipment/DME, Benefits of In-Hospital Mobility, Functional Mobility Involving ADLs, Home Set-up/Modifications, IADLs/Home Management, Identification of Systems of Support, Life Roles/Routines/Habits , Lower Extremity Dressing, Lower Extremity Bathing, Precautions/Restricti ons, Role of Occupational Therapy, Standing Balance to Improve [place] with ADLs/Self-Care, Transfer - Toilet/Commode THERAPEUTIC SKILLS USED Activity Dosing, Assessment of Tolerance Including Vitals Response to Activity, Cues for Sequencing/Proper Technique for Activity, Cuing Verbal FUNCTIONAL STATUS Activities of Daily Living Assist Level Additional Information Feeding Independent Grooming Stand By Assistance Bathing Upper Body Minimal Assistance Bathing Lower Body Minimal Assistance Dressing Upper Body Independent Dressing Lower Body Moderate Assistance Toileting Supervision Mobility Assist Level Additional Information Bed Mobility Sit to Stand Contact Guard Assistance Stand to Sit Contact Guard Assistance Bed to Chair Toilet/Commode Contact Guard Assistance Shower Functional Mobility Contact Guard Assistance Functional Mobility Device: None ROM STRENGTH ACTIVITY TOLERANCE Standing Activity: functional mobility to/from bathroom; Standing Activity Tolerance (in minutes): 5 BALANCE Dynamic Standing Balance: Fair GOALS Grooming with: Independent Upper Body Bathing with: Independent Upper Body Dressing with: Independent Lower Body Bathing with: Independent Lower Body Dressing with: Independent Toilet Hygiene with: Independent Chair Transfer with: Independent Toilet Transfer with: Independent Tolerate (minutes of functional activity): 25 Functional Activity with: Independent Rehab Potential: Good PLAN OT Frequency: One Additional Visit Treatment Interventions: Education, Self Care/Home Management SIGNATURE: MADELIN Min/Soumya PATIENT NAME: Elis Bills DATE: July 29, 2024 TIME: 11:39 AM Normal [facility] THERAPY NT HNO ID: [id number] Author: ANDREA PISANO, PT Service: Physical Therapy Author Type: Physical Therapist Type: Therapy (PT/OT/Speech/Resp) Filed: 07/29/2024 09:17 Note Text: Physical Therapy Evaluation Summary SERVICE DATE: 07/29/2024 SERVICE TIME: 814 ROOM: [id number] PT 6 Clicks Score: 21 DISCHARGE RECOMMENDATIONS Home Recommended Discharge Disposition Comments: Recommend Home with assist from spouse as needed Recommended Discharge Equipment: Wheeled Walker ASSESSMENT Response to Therapy Interventions: Good Participation in Activities, On-Track to Achieve Discharge Goals May benefit from wheeled walker for community distances due to noted fatigue. PRECAUTIONS Fall Risk, Spine CURRENT HOSPITAL COURSE 64 y.o male s/p decompression lami L1 07/28 Relevant Past Medical History: COPD, HTN, CVA, lumbar stenosis HOME LIVING Patient Lives With: Spouse Assistance Available: 24-Hour Entry To Home: Stairs Number Of Stairs Into Home: 3 Number Of Stairs To Bed/Bath: 0 Tub/Shower Type: walk in shower Laundry: spouse can complete Equipment Owned: (none) PRIOR FUNCTIONAL LEVEL Within Functional Limits Patient independent [employer], 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, working SUBJECTIVE Patient pleasant and agreeable to PT session THERAPY DIAGNOSIS Muscle Weakness (generalized), General symptoms and signs-other TREATMENT INTERVENTIONS Evaluation, Therapeutic Activity (58721) $ Evaluation-Moderate (88218) Billed Units: 1 unit Therapeutic Activity (57412) Treatment Minutes: 9 $ Therapeutic Activity (71841) Billed Units: 1 unit Educated patient on spine precautions (BLT): no bending, lifting >8-10 lbs, and no twisting. Educated patient on use of log roll into/out of bed to maintain neutral spine alignment and discourage twisting at trunk. Encouraged change of position, sitting up in chair and limiting time spent in bed to aid in optimal healing. Cues/assist with mobility as listed in grid below. Timed Code Treatment (minutes): 9 Skilled Treatment Time (minutes): 24 TRAINING AND EDUCATION PROVIDED Assistive Device Use, Bed Mobility, Benefits of In-Hospital Mobility, Expected Functional Level, Falls Prevention, Gait Pattern, Reduction of Deviations, Positioning, Precautions/Restricti ons, Role of Physical Therapy, Standing Balance, Transfers, Stair Navigation THERAPEUTIC SKILLS USED Cues for Sequencing/Proper Technique for Activity, Cuing Tactile, Cuing Verbal, Movement Facilitation, Postural Alignment Correction FUNCTIONAL STATUS Bed Mobility Rolling: Verbal Cues Only Supine To Sit: Verbal Cues Only Sit to Supine: Verbal Cues Only Scooting: Stand By Assistance Transfers Sit To Stand: Contact Guard Assistance, Additional Information cues for upright posture, hand placement, power through LE Stand To Sit: Contact Guard Assistance, Additional Information cues for positioning, hand placement, controlled descent Bed to Chair Gait Contact Guard Assistance, Additional Information patient ambulating with slower kalyn, wide base of support, cues for upright posture, pacing and breathing, mild postural sway noted, implemented walker, providing cues for upright posture and walker proximity to avoid forward flexed posture Gait Device: None, Wheeled Walker General Deviations/Observatio ns: Kalyn decreased, Non-functional gait speed, Step length decreased, Wide base of support Gait Distance (feet): 60' x 2 (no device), 75' x 2 (FWW) Stairs Contact Guard Assistance, Additional Information Stairs Device: Rail Number of Stairs: 4 cues for sequencing, no loss of balance noted, contact assist ROM WFL STRENGTH WFL BALANCE Static Sitting Balance: Good Dynamic Sitting Balance: Good Static Standing Balance: Fair Dynamic Standing Balance: Fair ACTIVITY TOLERANCE Standing Activity: ambulation, stairs GOALS Patient will demonstrate progress with functional mobility to allow safe discharge to home with available support and/or physical assistance. Able to Perform HEP with: Verbal Cues Only Transfer Sit to/from Stand with: Independent Ambulate with: Independent Distance: 100' Device: No Device Ambulate Up and Down Steps with: Supervision Number of Steps: 4 Device: Hand Held Assist Goal: recall and maintain 3/3 spine precautions Rehab Potential: Good PLAN PT Frequency: 6 Times Per Week (4-6) Treatment Interventions: Education, Energy Conservation Training, Functional Mobility Training, Strengthening, Balance Training SIGNATURE: Andrea Pisano PT PATIENT NAME: Elis Bills DATE: July 29, 2024 TIME: 9:14 AM Normal [facility] ANES POSTPROC EVALon 025 ANES POSTPROC EVAL HNO ID: [id number] Author: PAOLA REYES MD Service: Anesthesiology Author Type: Anesthesiologist Type: Anesthesia Postprocedure Evaluation Filed: 07/28/2024 16:23 Note Text: POST ANESTHESIA EVALUATION NOTE : 1960 Procedure Summary Date: 07/28/24 Room / Location: CT OR OR Anesthesia Start: 1155 Anesthesia Stop: 1431 Procedures: DECOMPRESSION LAMINECTOMY LUMBAR POSTERIOR LEVEL 1 (Spine Lumbar) DECOMPRESSION LAMINECTOMY 1ST ADD'L LUMBAR SEGMENT (Spine Lumbar) Diagnosis: Spinal stenosis of lumbar region with neurogenic claudication (Spinal stenosis of lumbar region with neurogenic claudication [M48.062]) Surgeons: Lois Kee MD Responsible Provider: Paola Reyes MD Anesthesia Type: general ASA Status: 3 Anesthesia Type: general Airway Type: ETT Last Vitals Vitals Value Taken Time BP 131/61 07/28/24 1501 Temp 36.3 ?C (97.3 ?F) 07/28/24 1500 Pulse 72 07/28/24 1517 Resp 26 07/28/24 1517 SpO2 95 % 07/28/24 1516 Vitals shown include unfiled device data. Post Anesthesia Patient Status Anticipated Disposition: inpatient floor planned admission. Neurological Status: aware and responsive. Pulmonary Status: breathing comfortably on supplemental oxygen Airway Control: returned to baseline unsupported. Cardiovascular Status: stable. Pain Management: clinically adequate Postoperative Hydration: acceptable. Intraoperative Events: no significant anesthesia events Post Operative Nausea/Vomiting Status: no significant post operative nausea or vomiting Recommendation: further care per PACU/ICU/floor team. Anesthesia Observations No Documentation SIGNATURE: Paola Reyes MD PATIENT NAME: Elis Bills DATE: July 28, 2024 TIME: 3:18 PM CSN: [id number] [facility] ANES PRE-OPon 07-28-2024 ANES PRE-OP HNO ID: [id number] Author: PAOLA REYES MD Service: Anesthesiology Author Type: Anesthesiologist Type: Anesthesia Preprocedure Evaluation Filed: 07/28/2024 10:40 Note Text: ANESTHESIOLOGY DAY OF SURGERY NOTE : 1960 Procedure Information Date/Time: 07/28/24 1045 Procedures: DECOMPRESSION LAMINECTOMY LUMBAR POSTERIOR LEVEL 1 (Spine Lumbar) DECOMPRESSION LAMINECTOMY 1ST ADD'L LUMBAR SEGMENT (Spine Lumbar) Location: CT OR OR Surgeons: Lois Kee MD Estimated body mass index is 41.05 kg/m? as calculated from the following: Height as of 07/14/24: 175.3 cm (5' 9). Weight as of 07/14/24: 126.1 kg (278 lb). Most recent hematocrit and potassium results: Hematocrit 39.9 07/14/2024 Potassium 4.5 07/14/2024 Relevant Problems CARDIO (+) HTN (hypertension) (+) RBBB (right bundle branch block) GI (+) Gastroesophageal reflux disease NEURO-PSYCH (+) Cerebrovascular accident (CVA) (HCC) PULMONARY (+) COPD with acute exacerbation (HCC) (+) Chronic bronchitis (HCC) (+) Severe persistent asthma Musculoskeletal (+) Lumbar stenosis - COPD on inhalers - severe, occasional wheezing - chews tobacco - CVA on plavix - last dose 07/20; no deficits TTE 12/2023 - EF 60%, no valve abnl, nl RV function I - PHYSICAL EVALUATION AIRWAY Patient intubated: No. Tracheostomy tube not present Mallampati: IV. TM distance: >3 FB. Neck ROM: full ROM without neurological symptoms. Mouth opening: adequate. Short neck: yes. Thick neck: yes DENTAL Dental findings: missing tooth/teeth and poor dentition. II - ANESTHESIA PLAN ASA Score: 3 Anesthetic Plan: general Airway type: ETT The patient is a current smoker. NPO Status: adequate Beta Kumar Monitoring Plan Monitoring plan: standard ASA. Post Procedure Analgesic Plan Postoperative analgesic plan: parenteral or oral opioids and multimodal analgesia. Informed Consent Anesthetic risks, benefits, alternatives, personnel and consent discussed: yes. Patient / Responsible Democrat agrees to proceed: yes Patient / Surrogate agrees to blood products: Yes Potential Anesthesia issues that may suggest increased risk of complications or contraindication to planned procedure: potential difficult intubation. Vitals Value Taken Time BP 142/66 07/28/2431 Pulse 74 07/28/24930 Resp 16 07/28/24930 Temp 36.7 ?C (98.1 ?F) 07/28/24930 SpO2 92 % 07/28/24930 No current facility-administered medications on file as of 07/28/2024. Outpatient Medications as of 07/28/2024 Medication Sig MYRON AEROSPHERE 160-9-4.8 mcg/actuation HFA aerosol inhaler INHALE 2 PUFFS TWICE DAILY, RINSE MOUTH AND THROAT AFTER USE. nicotine polacrilex (NICORETTE) 4 mg gum Take 1 Each by mouth as needed. albuterol HFA (PROVENTIL HFA, VENTOLIN HFA) 90 mcg/actuation inhaler Inhale 2 Puffs as instructed every 4 hours as needed for wheezing/shortness of breath. albuterol (PROVENTIL) 2.5 mg /3 mL (0.083 %) nebulizer solution Use 3 mL via nebulizer every 4 hours as needed for wheezing/shortness of breath. Inhale over 5-15 minutes budesonide (PULMICORT) 0.5 mg/2 mL nebulizer solution Use 2 mL via nebulizer two times a day. omeprazole (PRILOSEC) 10 mg capsule Take 10 mg by mouth once daily. atorvastatin (LIPITOR) 80 mg tablet Take 80 mg by mouth once daily. montelukast (SINGULAIR) 10 mg tablet Take 1 tablet by mouth daily at bedtime. lisinopril 2.5 mg tablet Take 2.5 mg by mouth once daily. clopidogrel (PLAVIX) 75 mg tablet Take 75 mg by mouth once daily. I have interviewed and examined the patient. I have reviewed the medical record and/or the pre-anesthesia evaluation, pertinent labs, and test results. This contains updated information obtained within 48 hours of Surgery/Procedure. SIGNATURE: Paola Reyes MD PATIENT NAME: Elis Bills DATE: July 28, 2024 TIME: 10:34 AM CSN: [id number] [facility] CONSULTon 07-28-2024 CONSULT HNO ID: [id number] Author: KAYDEN KOHLI MD Service: Hospital Medicine Author Type: Physician Type: Consults Filed: 07/28/2024 19:14 Note Text: DEPARTMENT OF HOSPITAL MEDICINE INITIAL CONSULT SERVICE DATE: 07/28/2024 SERVICE TIME: 7:02 PM Primary Care Physician: Pilar Steele DO NIGHT AND WEEKEND COVERAGE: [place] COVERAGE: From 7am - 7pm, please call team pager After 7pm, please call cross cover pager #[phone] REASON FOR CONSULT: . REQUESTING PHYSICIAN: Dr. Kee Subjective CHIEF COMPLAINT: back pain HPI: 64-year-old male with past medical history of COPD not on home O2, hypertension, history of CVA with no residual deficits, right bundle branch block, longstanding lumbar stenosis that had failed conservative management presenting today for decompression, laminectomy. Medicine consulted for perioperative optimization. Patient seen on 0 postoperative day -sitting up in bed, appears to be slightly groggy but otherwise appears comfortable. Still has some back pain, notices no numbness tingling or any other musculoskeletal symptoms. No chest pain shortness of breath or nausea vomiting. Preoperative labs reviewed, CBC done within normal limits CMP within normal limits sodium low at 127 chloride 90 AST ALT alkaline phosphatase creatinine all within normal limits these labs are drawn July 14, 2024. Patient was admitted in the hospital for COPD exacerbation July 02, 2024. Hyponatremia noted at that time he was asymptomatic serum osmolality Noted to be low at 262 urine osmolality was 111 and random serum sodium was less than 20; Travel Screening Question Response Have you been in contact with someone who was sick? -- Do you have any of the following new or worsening symptoms? -- Have you traveled internationally or domestically in the last month? No Travel History Travel since 06/27/24 No documented travel since 06/27/24 Additional Travel Screening/COVID-19 Questions: Flowsheet Row ED to Hosp-Admission (Discharged) from 12/01/2023 in ACUTE CARE/SWING Has patient been tested for COVID-19 outside of [facility]? No PAST MEDICAL HISTORY Diagnosis Date COPD (chronic obstructive pulmonary disease) (HCC) Hypercholesteremia Lung nodules Spinal stenosis of lumbar region with neurogenic claudication Stroke (HCC) Unspecified right bundle-branch block PAST SURGICAL HISTORY Procedure Laterality Date PILONIDAL CYST/SINUS EXCISION TOTAL HIP REPLACEMENT Bilateral FAMILY HISTORY Problem Relation Age of Onset No Known Problems Mother Leukemia Father Social History Tobacco Use Smoking status: Former Current packs/day: 0.50 Types: Cigarettes Smokeless tobacco: Never Tobacco comments: Quit smoking a week or so ago (04/06/24) Smoked for about 35 years 1- 2 ppd Vaping Use Vaping status: Never Used Substance Use Topics Alcohol use: Yes Comment: 30 cans beer per week Drug use: Never PRIOR TO ADMISSION MEDICATIONS: BREZTRI AEROSPHERE 160-9-4.8 mcg/actuation HFA aerosol inhaler, INHALE 2 PUFFS TWICE DAILY, RINSE MOUTH AND THROAT AFTER USE., Disp: , Rfl: , 07/27/2024 nicotine polacrilex (NICORETTE) 4 mg gum, Take 1 Each by mouth as needed., Disp: 300 Each, Rfl: 3, 07/28/2024 at 0935 albuterol HFA (PROVENTIL HFA, VENTOLIN HFA) 90 mcg/actuation inhaler, Inhale 2 Puffs as instructed every 4 hours as needed for wheezing/shortness of breath., Disp: 3 Each, Rfl: 3, 07/27/2024 albuterol (PROVENTIL) 2.5 mg /3 mL (0.083 %) nebulizer solution, Use 3 mL via nebulizer every 4 hours as needed for wheezing/shortness of breath. Inhale over 5-15 minutes, Disp: , Rfl: , 07/27/2024 budesonide (PULMICORT) 0.5 mg/2 mL nebulizer solution, Use 2 mL via nebulizer two times a day., Disp: 360 mL, Rfl: 3, 07/27/2024 omeprazole (PRILOSEC) 10 mg capsule, Take 10 mg by mouth once daily., Disp: , Rfl: , 07/20/2024 atorvastatin (LIPITOR) 80 mg tablet, Take 80 mg by mouth once daily., Disp: , Rfl: , 07/20/2024 montelukast (SINGULAIR) 10 mg tablet, Take 1 tablet by mouth daily at bedtime., Disp: 90 tablet, Rfl: 3, 07/20/2024 lisinopril 2.5 mg tablet, Take 2.5 mg by mouth once daily., Disp: , Rfl: , 07/20/2024 clopidogrel (PLAVIX) 75 mg tablet, Take 75 mg by mouth once daily., Disp: , Rfl: , 07/20/2024 Current Facility-Administered Medications Medication Dose Route Frequency atorvastatin 80 mg tab(s) (LIPITOR) 80 mg ORAL AT BEDTIME lisinopril 2.5 mg tab(s) 2.5 mg ORAL DAILY albuterol 2.5 mg /3 mL (0.083 %) 2.5 mg (PROVENTIL) 2.5 mg INHALATION q 4 H PRN budesonide 0.5 mg/2 mL 0.5 mg (PULMICORT) 0.5 mg INHALATION BID montelukast 10 mg tab(s) (SINGULAIR) 10 mg ORAL AT BEDTIME acetaminophen 650 mg tab(s) (TYLENOL) 650 mg ORAL q 6 H morphine 2 mg injection 2 mg INTRAVENOUS q 3 H PRN oxyCODONE IR 5-10 mg tab(s) (ROXICODONE) 5-10 mg ORAL q 4 H PRN magnesium hydroxide 400 mg/5 mL 30 mL (MOM) 30 mL ORAL DAILY PRN docusate sodium 100 mg cap(s) (COLACE) 100 mg OR (more content not included)... Normal [facility] OPERATIVE NOon 07-28-2024 OPERATIVE NO HNO ID: [id number] Author: LOIS KEE MD Service: Neurosurgery Author Type: Physician Type: Operative Report Filed: 08/09/2024 09:06 Note Text: OPERATIVE/PROCEDURE REPORT LOG ID: [id number] SURGERY/PROCEDURE DATE: 07/28/2024 INCISION/PROCEDURE START TIME: 12:43 PM INCISION CLOSE/PROCEDURE END TIME: 2:13 PM SURGEON(S)/PROCEDURAL IST(S) AND PLANNING OFFICIAL(S): Surgeons and Role: * Lois Kee MD - Primary Physician Transition Rn: Lisandro Fulton PA-C; Austin Solo PA-C SURGERY/PROCEDURE(S): Lumbar 2 to lumbar 4 laminectomy and bilateral medial facetectomies ANESTHESIA: General SURGERY/PROCEDURE DETAILS: Mr. Bills is a 64-year-old man with chronic low back pain that is worse with standing and activity. He is found to have compressive epidural lipomatosis from L2-L4. He had some improvement in his symptoms with an epidural injection, but his pain returned. Given that he exhausted conservative management, I offered lumbar 2 lumbar 4 laminectomy to decompress the nerve roots, given the claudicatory nature of his symptoms. The risks, benefits, and alternatives to surgery were discussed in detail. The risks that we discussed included bleeding, infection, neurologic injury including spinal cord injury, nerve root injury, CSF leak, need for additional surgery, hardware failure, medical complications including heart attack, stroke, pneumonia, blood clots, paralysis, coma, and . All questions were answered. The patient understood the risks of surgery and was willing to proceed. A pre-operative huddle was performed before the patient was brought into the operating room and placed under general anesthesia without complication. He was carefully turned prone onto a Darrion table and all pressure points were padded. Fluoroscopy was brought in to localize the level of my incision. He was then prepped and draped in the usual standard fashion. A surgical timeout was performed, verifying the correct patient, procedure, and operative site, with all appropriate parties participating. A 10 blade was used to make a midline incision from L2-L4. Bovie electrocautery was used to dissect down through the subcutaneous tissue until the spinous processes were identified. Subperiosteal technique was used to expose the spinous process and lamina from L2-L4. A hemostat clamp was placed in the L4 spinous process, and a lateral x-ray was taken for level verification purposes. This was confirmed with the attending radiologist. Self-retaining retractors were placed. A Leksell rongeur was used to remove the inferior two thirds of the L2 spinous process, the complete L3 spinous process, and the superior two thirds of the L4 spinous process. The underlying laminar bone was thinned down using a Leksell rongeur. A high-speed drill was used to thin down the lamina from L2-L4 until an eggshell layer of bone remained. Up-angled curettes were used to define the plane between the thin layer of bone and the underlying soft tissue. Kerrison rongeurs were used to make a midline laminectomy from L2-L4. There was a large amount of compressive epidural fat noted. Once the midline laminectomy was complete, the lateral recess ease were decompressed bilaterally from L2-L4 using Kerrison rongeurs. High-speed drill was used to thin down the medial facet bilaterally at L2-3 and L3-4. Once the decompression was complete, hemostasis was achieved using bone wax, Floseal, and bipolar electrocautery. A medium Hemovac drain was tunneled out through the patient's skin and secured in place. Closure proceeded in layers. The muscle was closed with 0 Vicryl sutures. The fascia was closed with 0 Vicryl sutures. The subcutaneous tissue was closed with inverted 2-0 Vicryl sutures. Tiffnai were used to close the skin. All sponge and needle counts were correct at the end of the procedure. The patient was then carefully turned supine onto the operating room bed, extubated, transferred to the recovery room in stable condition. PRE-OP/PRE-PROCEDURE DIAGNOSIS: Lumbar stenosis with neurogenic claudication POST-OP/POST-PROCEDUR E DIAGNOSIS: Same as Preop ESTIMATED BLOOD LOSS: 100 mL SPECIMENS: None IMPLANTABLE DEVICES: NONE DRAINS: Medium Hemovac COMPLICATIONS: None CLOSURE TECHNIQUE: Primary PARTICIPATION IN SURGERY/PROCEDURE: I/primary surgeon/proceduralist performed the procedure with assistance. No qualified resident/fellow was available. Assistance was required for protection of the neural elements during the decompression, and during closure. SIGNATURE: Lois Kee MD PATIENT NAME: Elis Bills DATE: August 09, 2024 TIME: 9:01 AM Normal [facility] XR LUMBAR SPECIFY 1Von 07-28 XR LUMBAR SPECIFY 1V * * *Final Report* * * DATE OF EXAM: Jul 28 2024 2:35PM [id number] - XR LUMBAR SPECIFY 1V / PROCEDURE REASON: DECOMPRESSION LAMINECTOMY LUMBAR POSTERIOR * * * * Physician Interpretation * * * * EXAM TITLE: XR LUMBAR SPECIFY 1V DATE: 07/28/2024 COMPARISON: Localization images same day. CLINICAL INDICATION/HISTORY: Lumbar decompression. Laminectomy. TECHNIQUE: Fluoroscopic guidance was provided for an intraoperative exam. FINDINGS: Images obtained: 1 Total fluoroscopy time 2.0 seconds Cumulative air kerma: 1.5119 Single intraoperative view demonstrates dorsal retractors devices. Surgical probes are noted dorsal to the L2 vertebral body and dorsal to the inferior aspect the L4 vertebral body respectively. IMPRESSION: Documentation of fluoroscopy for intraoperative procedure. Please see the clinician's notes for further details of the procedure. Package Winder: PSCB Transcribe Date/Time: Aug 01 2024 1:44P Dictated by : CRISTIAN FREITAS MD This examination was interpreted and the report reviewed and electronically signed by: CRISTIAN FREITAS MD on Aug 01 2024 1:47PM EST [id number] Normal [facility] XR VERIFY LEVEL [id number] 07-28-2024 XR VERIFY LEVEL L-SPINE-NB * * *Final Report* * * DATE OF EXAM: Jul 28 2024 12:59PM [id number] - XR VERIFY LEVEL L-SPINE-NB / PROCEDURE REASON: DECOMPRESSION LAMINECTOMY LUMBAR POSTERIOR VERIFICATION * * * * Physician Interpretation * * * * EXAM TITLE: LUMBAR SPINE LEVEL VERIFICATION X-RAY DATE: 07/28/2024 COMPARISON: Lumbar spine 4 views 06/05/2024 CLINICAL INDICATION/HISTORY: Spinal stenosis of lumbar region with neurogenic claudication. Lumbar surgery. TECHNIQUE: Single lateral intraoperative fluoroscopic spot views obtained of the lumbar spine. Radiologist is not present for examination. Fluoroscopic Radiation Summary: Total number of acquisitions and radiographs: 1 Plane A, Air Kerma: 9.2 mGy Fluoro time: 0:09 min:sec FINDINGS: Counting reference: Lumbosacral junction. For the purposes of this report, L4-5 is considered the level of the iliac crest and assume there are 5 lumbar-type vertebrae. Anatomic variant: None. There is a curved surgical clamp noted with tip overlying the L4 spinous process. IMPRESSION: 1. Surgical clamp tip overlying the L4 spinous process. Findings relayed to the OR via telephone with lumbar level agreement by Dr. Kee on 07/28/2024 1:02 PM. Package Winder: [id number] Transcribe Date/Time: Jul 28 2024 1:02P Dictated by : SUNITA SMITH MD This examination was interpreted and the report reviewed and electronically signed by: SUNITA SMITH MD on Jul 28 2024 1:11PM EST [id number] N [facility] 07-27-2024 [facility] Telephone ([facility]) ELIS BILLS ([id number]) 1960 Date Time Provider Department 07/27/24 LOIS KEE NEKRISTY During your visit today, we recorded the following information about you: Stephane Bazan 07/27/2024 9:21 AM Signed Contacted patient to remind them of their arrival time for surgery with Dr. Lois Kee on 07/28/24. Patient is to arrive at [facility] at 8:30am for surgery at 10:30am. Spoke with patient and they are aware of all arrival information. Allergies As of Date: 07/27/2024 Noted Allergy Reaction PENICILLINS 08/27/2014 14 - Other: See Comments Comments: Respiratory distress as a baby DALIRESP (ROFLUMILAST) 07/14/2024 2 - Rash Date Reviewed: 07/14/2024 Reviewed by: Harvey Purvis APRN.EXPORT 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 - Fully Assessed Reason for Visit: Preparations For Surgery [898] Prescriptions as of 07/27/2024 - BREZTRI AEROSPHERE 160-9-4.8 mcg/actuation HFA aerosol inhaler INHALE 2 PUFFS TWICE DAILY, RINSE MOUTH AND THROAT AFTER USE. - omeprazole (PRILOSEC) 10 mg capsule Take 10 mg by mouth once daily. - nicotine polacrilex (NICORETTE) 4 mg gum Take 1 Each by mouth as needed. - albuterol HFA (PROVENTIL HFA, VENTOLIN HFA) 90 mcg/actuation inhaler Inhale 2 Puffs as instructed every 4 hours as needed for wheezing/shortness of breath. - albuterol (PROVENTIL) 2.5 mg /3 mL (0.083 %) nebulizer solution Use 3 mL via nebulizer every 4 hours as needed for wheezing/shortness of breath. Inhale over 5-15 minutes - atorvastatin (LIPITOR) 80 mg tablet Take 80 mg by mouth once daily. - montelukast (SINGULAIR) 10 mg tablet Take 1 tablet by mouth daily at bedtime. - budesonide (PULMICORT) 0.5 mg/2 mL nebulizer solution Use 2 mL via nebulizer two times a day. - lisinopril 2.5 mg tablet Take 2.5 mg by mouth once daily. - clopidogrel (PLAVIX) 75 mg tablet Take 75 mg by mouth once daily. Problem List As Of Date 07/27/2024 Noted Resolved Chronic bronchitis (HCC) [J42] 08/20/2023 Wheezing [R06.2] 08/20/2023 Chronic obstructive pulmonary disease with acut*08/20/2023 12/01/2023 Nicotine use disorder [F17.200] 08/20/2023 Morbid obesity (HCC) [E66.01] 08/20/2023 Lung nodules [R91.8] 11/11/2023 Severe persistent asthma [J45.50] 11/11/2023 Hyponatremia [E87.1] 12/01/2023 Lumbar stenosis [M48.061] 12/01/2023 Elevated troponin [R79.89] 12/01/2023 COPD with acute exacerbation (HCC) [J44.1] 12/01/2023 ETOH abuse [F10.10] 12/01/2023 Obesity, Class III, BMI >= 40 [E66.01] 12/01/2023 Pre-op examination [Z01.818] 07/10/2024 Spinal stenosis of lumbar region with neurogeni*07/10/2024 Cerebral infarction due to occlusion of left po*07/10/2024 Gastroesophageal reflux disease [K21.9] 07/10/2024 Hyperlipidemia [E78.5] 07/10/2024 HTN (hypertension) [I10] 07/10/2024 RBBB (right bundle branch block) [I45.10] 07/14/2024 Cerebrovascular accident (CVA) (HCC) [I63.9] 07/14/2024 Tobacco user [Z72.0] 07/14/2024 Encounter Status:Closed by STEPHANE BAZAN on 07/27/24 [facility] NURSING PROGon 07-27-2024 NURSING PROG HNO ID: [id number] Author: CANDE BEAL APRN.EXPORT 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 Service: Anesthesiology Author Type: Nurse Practitioner Type: Nursing Progress Note Filed: 07/27/2024 10:16 Note Text: Abnormal labs from 07/14/24 from PAT appointment reviewed with Dr. Yen, anesthesiologist- Na 127, Cl 90, BUN 4. Okay to proceed with case tomorrow- pt will be evaluated DOS per Dr. Yen. [facility] NURSING PROGon 07-21-2024 NURSING PROG HNO ID: [id number] Author: YASHIRA LEYVA APRN.EXPORT 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 Service: ? Author Type: Nurse Practitioner Type: Nursing Progress Note Filed: 07/21/2024 13:39 Note Text: Summary: PAT Pulmonary clearance in Epic 07/21/2023 [facility] CNCOon 07-20-2024 CNCO Letter Text [facility] CNPNon 07-20-2024 CNPN Telephone ([facility]) ELIS BILLS ([id number]) 1960 M Date Time Provider Department 07/20/24 SHELTON AGUILERA [facility] During your visit today, we recorded the following information about you: Dalia Segura 07/20/2024 3:46 PM Signed Type of form: Medical clearance for L2-L4 Laminectomy DOS: 07/28/24 TIMO Form received via fax When form is completed, Fax form to [phone] Form has been forwarded to Physician Mailbox: Dalia Garcia 07/21/2024 12:54 PM Signed Completed/signed form faxed back to Dr. Kee's office. Dalia Segura Allergies As of Date: 07/20/2024 Noted Allergy Reaction PENICILLINS 08/27/2014 14 - Other: See Comments Comments: Respiratory distress as a baby DALIRESP (ROFLUMILAST) 07/14/2024 2 - Rash Date Reviewed: 07/14/2024 Reviewed by: Harvey Purvis APRN.EXPORT 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 - Fully Assessed Reason for Visit: Medical Clearance [1982] Prescriptions as of 07/21/2024 - BREZTRI AEROSPHERE 160-9-4.8 mcg/actuation HFA aerosol inhaler INHALE 2 PUFFS TWICE DAILY, RINSE MOUTH AND THROAT AFTER USE. - omeprazole (PRILOSEC) 10 mg capsule Take 10 mg by mouth once daily. - nicotine polacrilex (NICORETTE) 4 mg gum Take 1 Each by mouth as needed. - albuterol HFA (PROVENTIL HFA, VENTOLIN HFA) 90 mcg/actuation inhaler Inhale 2 Puffs as instructed every 4 hours as needed for wheezing/shortness of breath. - albuterol (PROVENTIL) 2.5 mg /3 mL (0.083 %) nebulizer solution Use 3 mL via nebulizer every 4 hours as needed for wheezing/shortness of breath. Inhale over 5-15 minutes - atorvastatin (LIPITOR) 80 mg tablet Take 80 mg by mouth once daily. - montelukast (SINGULAIR) 10 mg tablet Take 1 tablet by mouth daily at bedtime. - budesonide (PULMICORT) 0.5 mg/2 mL nebulizer solution Use 2 mL via nebulizer two times a day. - lisinopril 2.5 mg tablet Take 2.5 mg by mouth once daily. - clopidogrel (PLAVIX) 75 mg tablet Take 75 mg by mouth once daily. Problem List As Of Date 07/20/2024 Noted Resolved Chronic bronchitis (HCC) [J42] 08/20/2023 Wheezing [R06.2] 08/20/2023 Chronic obstructive pulmonary disease with acut*08/20/2023 12/01/2023 Nicotine use disorder [F17.200] 08/20/2023 Morbid obesity (HCC) [E66.01] 08/20/2023 Lung nodules [R91.8] 11/11/2023 Severe persistent asthma [J45.50] 11/11/2023 Hyponatremia [E87.1] 12/01/2023 Lumbar stenosis [M48.061] 12/01/2023 Elevated troponin [R79.89] 12/01/2023 COPD with acute exacerbation (HCC) [J44.1] 12/01/2023 ETOH abuse [F10.10] 12/01/2023 Obesity, Class III, BMI >= 40 [E66.01] 12/01/2023 Pre-op examination [Z01.818] 07/10/2024 Spinal stenosis of lumbar region with neurogeni*07/10/2024 Cerebral infarction due to occlusion of left po*07/10/2024 Gastroesophageal reflux disease [K21.9] 07/10/2024 Hyperlipidemia [E78.5] 07/10/2024 HTN (hypertension) [I10] 07/10/2024 RBBB (right bundle branch block) [I45.10] 07/14/2024 Cerebrovascular accident (CVA) (HCC) [I63.9] 07/14/2024 Tobacco user [Z72.0] 07/14/2024 Encounter Status:Closed by DALIA SEGURA on 07/21/24 [facility] NURSING PROGon 07-20-2024 NURSING PROG HNO ID: [id number] Author: ARNULFO HERNANDEZ APRN.EXPORT 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 Service: General Surgery Author Type: Nurse Practitioner Type: Nursing Progress Note Filed: 07/20/2024 14:46 Note Text: Summary: PAT FELIPE Vizcaino at Dr. Kee's office asking for pulmonary optimization as requested by anesthesia. Normal [facility] Donna 07-17-2024 NABORN Telephone (DARVIN) ELIS BILLS ([id number]) 1960 Date Time Provider Department 07/17/24 POLLY MCFARLANE During your visit today, we recorded the following information about you: Allergies As of Date: 07/17/2024 Noted Allergy Reaction PENICILLINS 08/27/2014 14 - Other: See Comments Comments: Respiratory distress as a baby DALIRESP (ROFLUMILAST) 07/14/2024 2 - Rash Date Reviewed: 07/14/2024 Reviewed by: Harvey Purvis APRN.EXPORT 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 - Fully Assessed Prescriptions as of 07/17/2024 - BREZTRI AEROSPHERE 160-9-4.8 mcg/actuation HFA aerosol inhaler INHALE 2 PUFFS TWICE DAILY, RINSE MOUTH AND THROAT AFTER USE. - omeprazole (PRILOSEC) 10 mg capsule Take 10 mg by mouth once daily. - nicotine polacrilex (NICORETTE) 4 mg gum Take 1 Each by mouth as needed. - albuterol HFA (PROVENTIL HFA, VENTOLIN HFA) 90 mcg/actuation inhaler Inhale 2 Puffs as instructed every 4 hours as needed for wheezing/shortness of breath. - albuterol (PROVENTIL) 2.5 mg /3 mL (0.083 %) nebulizer solution Use 3 mL via nebulizer every 4 hours as needed for wheezing/shortness of breath. Inhale over 5-15 minutes - atorvastatin (LIPITOR) 80 mg tablet Take 80 mg by mouth once daily. - montelukast (SINGULAIR) 10 mg tablet Take 1 tablet by mouth daily at bedtime. - budesonide (PULMICORT) 0.5 mg/2 mL nebulizer solution Use 2 mL via nebulizer two times a day. - lisinopril 2.5 mg tablet Take 2.5 mg by mouth once daily. - clopidogrel (PLAVIX) 75 mg tablet Take 75 mg by mouth once daily. Problem List As Of Date 07/17/2024 Noted Resolved Chronic bronchitis (HCC) [J42] 08/20/2023 Wheezing [R06.2] 08/20/2023 Chronic obstructive pulmonary disease with acut*08/20/2023 12/01/2023 Nicotine use disorder [F17.200] 08/20/2023 Morbid obesity (HCC) [E66.01] 08/20/2023 Lung nodules [R91.8] 11/11/2023 Severe persistent asthma [J45.50] 11/11/2023 Hyponatremia [E87.1] 12/01/2023 Lumbar stenosis [M48.061] 12/01/2023 Elevated troponin [R79.89] 12/01/2023 COPD with acute exacerbation (HCC) [J44.1] 12/01/2023 ETOH abuse [F10.10] 12/01/2023 Obesity, Class III, BMI >= 40 [E66.01] 12/01/2023 Pre-op examination [Z01.818] 07/10/2024 Spinal stenosis of lumbar region with neurogeni*07/10/2024 Cerebral infarction due to occlusion of left po*07/10/2024 Gastroesophageal reflux disease [K21.9] 07/10/2024 Hyperlipidemia [E78.5] 07/10/2024 HTN (hypertension) [I10] 07/10/2024 RBBB (right bundle branch block) [I45.10] 07/14/2024 Cerebrovascular accident (CVA) (HCC) [I63.9] 07/14/2024 Tobacco user [Z72.0] 07/14/2024 Encounter Status:Closed by POLLY MCFARLANE on 07/17/24 Normal [facility] NURSING PROGon 07-17-2024 NURSING PROG HNO ID: [id number] Author: POLLY MCFARLANE APRN.EXPORT 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 Service: Anesthesiology Author Type: Nurse Practitioner Type: Nursing Progress Note Filed: 07/17/2024 09:51 Note Text: Reviewed PAT HANDP and progress note concerns. Reviewed unconfirmed EKG with anesthesia Dr. Dupree showing RBBB (not new)- ok to proceed with procedure. Reviewed ROMÁN concerns with anesthesia Dr. Dupree regarding wheezing during PAT and hx of COPD. Per Dr. Dupree, pulmonary optimization is needed prior to procedure. Telephone encounter created with surgeon, pulmonary, and anesthesia. CC ROMÁN please follow up on pulmonary optimization. Normal [facility] Bacteria Ur Culton Bacteria identified Cx Nom (U) CULTURE, URINE: 10,000-<50,000 CFU/ml Normal Urogenital Mark Normal [facility] Comment on above: Performed By: #### 6 30-4 #### [facility] CLIA [id number] [address] CBC panel Auto (Bld)on 07-14 Erythrocyte distribution width (RBC) [Ratio] 13.7 % Normal 11.5-15.0 [facility] Comment on above: Order Comment: Speci men Type: BLOOD SPECIMENOrdering Facility: [facility] Address: [address] [place] [address] Performed By: #### 5 8410-2 ####[facility]IA [id number] [address] Hematocrit (Bld) [Volume fraction] 39.9 % Normal 39.0-51.0 [facility] Comment on above: Order Comment: Speci men Type: BLOOD SPECIMENOrdering Facility: [facility] Address: [address] [place] [address] Performed By: #### 5 8410-2 ####[facility]ORY[facility]IA [id number] [address] Hemoglobin (Bld) [Mass/Vol] 13.8 g/dL Normal 13.0-17.0 [facility] Comment on above: Order Comment: Speci men Type: BLOOD SPECIMENOrdering Facility: [facility] Address: [address] [place] [address] Performed By: #### 5 8410-2 ####[facility]ORYCLIA [id number] [address] [place] [facility] MCH (RBC) [Entitic mass] 29.7 pg Normal 26.0-34.0 [facility] Comment on above: Order Comment: Speci men Type: BLOOD SPECIMENOrdering Facility: [facility] Address: [address] [place] [address] Performed By: #### 5 8410-2 ####[facility]ATORYCLIA [id number] [place] [address] [place] MCHC (RBC) [Mass/Vol] 34.6 g/dL Normal 30.5-36.0 [facility] Comment on above: Order Comment: Speci men Type: BLOOD SPECIMENOrdering Facility: [facility] Address: [address] [place] [address] Performed By: #### 5 8410-2 ####[facility]ORYCLIA [id number] [address] [place] MCV (RBC) [Entitic vol] 85.8 fL Normal 80.0-100.0 [facility] Comment on above: Order Comment: Speci men Type: BLOOD SPECIMENOrdering Facility: [facility] Address: [address] [place] [address] Performed By: #### 5 8410-2 ####[facility] LABORATORYCLIA [id number] [address] STATES OF [facility] Nucleated RBC (Bld) [#/Vol] 10*3/uL Normal <0.01 [facility] Comment on above: Order Comment: Speci men Type: BLOOD SPECIMENOrdering Facility: [facility] Address: [address] [place] [address] Performed By: #### 5 8410-2 ####[facility] LABORATORYCLIA [id number] [address] [place] Platelet mean volume (Bld) [Entitic vol] 9.3 fL Normal 9.0-12.7 [facility] Comment on above: Order Comment: Speci men Type: BLOOD SPECIMENOrdering Facility: [facility] Address: [address] [place] [address] Performed By: #### 5 8410-2 ####[facility] LABORATORYCLIA [id number] [address] [place] Platelets (Bld) [#/Vol] 271 10*3/uL Normal 150-400 [facility] Comment on above: Order Comment: Speci men Type: BLOOD SPECIMENOrdering Facility: [facility] Address: [address] [place] [address] Performed By: #### 5 8410-2 ####[facility] LABORATORYCLIA [id number] [address] OF [facility] RBC (Bld) [#/Vol] 4.65 10*6/uL Normal 4.20-6.00 [facility] Comment on above: Order Comment: Speci men Type: BLOOD SPECIMENOrdering Facility: [facility] Address: [address] [place] [address] Performed By: #### 5 8410-2 ####[facility] LABORATORYCLIA [id number] [address] WBC (Bld) [#/Vol] 7.91 10*3/uL Normal 3.70-11.00 [facility] Comment on above: Order Comment: Speci men Type: BLOOD SPECIMENOrdering Facility: [facility] Address: [address] [place] [address] Performed By: #### 5 8410-2 ####[facility] LABORATORYCLIA [id number] [address] [place]IR[place] BLOOD TYPEon 024 ABO O Normal [facility] Comment on above: Order Comment: Speci men Type: BLOOD SPECIMEN [facility] Address: [address] [place] [address] Performed By: #### C ONO #### [facility] CLIA [id number] [address] Rh Nom (Bld) Positive Normal [facility] Comment on above: Order Comment: Speci men Type: BLOOD SPECIMEN [facility] Address: [address] [place] [address] Performed By: #### C ONABO #### [facility] CLIA [id number] [address] ABO group Nom (Bld) O [facility] Rh Nom (Bld) Positive [facility] Comprehensive metabolic 2000 panelon 07-14-2024 Albumin [Mass/Vol] 4.2 g/dL Normal 3.9-4.9 [facility] Comment on above: Order Comment: Speci men Type: BLOOD SPECIMENOrdering Facility: [facility] Address: [address] [place] [address] Performed By: #### 6 00-7 #### [facility] CLIA [id number] [address] ALP [Catalytic activity/Vol] 98 U/L Normal 38-113 [facility] Comment on above: Order Comment: Speci men Type: BLOOD SPECIMENOrdering Facility: [facility] Address: [address] [place] [address] Performed By: #### 6 -7 #### [facility] CLIA [id number] [address] ALT With P-5'-P [Catalytic activity/Vol] 24 U/L Normal 10-54 [facility] Comment on above: Order Comment: Speci men Type: BLOOD SPECIMENOrdering Facility: [facility] Address: [address] [place] [address] Performed By: #### 6 00-7 #### [facility] CLIA [id number] [address] Anion gap [Moles/Vol] 12 mmol/L Normal 8-15 [facility] Comment on above: Order Comment: Speci men Type: BLOOD SPECIMENOrdering Facility: [facility] Address: [address] [place] [address] Performed By: #### 6 00-7 #### [facility] CLIA [id number] [address] AST With P-5'-P [Catalytic activity/Vol] 22 U/L Normal 14-40 [facility] Comment on above: Order Comment: Speci men Type: BLOOD SPECIMENOrdering Facility: [facility] Address: [address] [place] [address] Performed By: #### 6 00-7 #### [facility] CLIA [id number] [address] [place] Bilirubin [Mass/Vol] 0.6 mg/dL Normal 0.2-1.3 [facility] Comment on above: Order Comment: Speci men Type: BLOOD SPECIMENOrdering Facility: [facility] Address: [address] [place] [address] Performed By: #### 6 00-7 #### [facility] CLIA [id number] [address] [place] Calcium [Mass/Vol] 9.2 mg/dL Normal 8.5-10.2 [facility] Comment on above: Order Comment: Speci men Type: BLOOD SPECIMENOrdering Facility: [facility] Address: [address] [place] [address] Performed By: #### 6 -7 #### [facility] CLIA [id number] [address] [place] Chloride [Moles/Vol] 90 mmol/L Low 98-107 [facility] Comment on above: Order Comment: Speci men Type: BLOOD SPECIMENOrdering Facility: [facility] Address: [address] [place] [address] Performed By: #### 6 -7 #### [facility] CLIA [id number] [address] [place] CO2 [Moles/Vol] 25 mmol/L Normal 22-30 [facility] Comment on above: Order Comment: Speci men Type: BLOOD SPECIMENOrdering Facility: [facility] Address: [address] [place] [address] Performed By: #### 6 00-7 #### [facility] CLIA [id number] [address] [place] [address] [place] Creatinine [Mass/Vol] 0.80 mg/dL Normal 0.73-1.22 [facility] Comment on above: Order Comment: Speci men Type: BLOOD SPECIMENOrdering Facility: [facility] Address: [address] [place] [address] Performed By: #### 6 00-7 #### [facility] CLIA [id number] [address] [place] [address] [place] Creatinine and Glomerular filtration rate.predicted panel (S/P/Bld) 98 mL/min/1.73m??? Normal >=60 [facility] Comment on above: Order Comment: Wilbert torres Type: BLOOD SPECIMENOrdering Facility: [facility] Address: [address] [place] [address] Result Comment: Lala mated Glomerular Filtration Rate (eGFR) is calculated using the 2020 CKD-EPI creatinine equation. This equation utilizes serum creatinine, sex, and age as parameters. The creatinine assay has traceable calibration to isotope dilution-mass spectrometry. Refer to KDIGO guidelines for clinical interpretation. In patients with unstable renal function, e.g. those with acute kidney injury, the eGFR may not accurately reflect actual GFR. Performed By: #### 6 00-7 #### [facility] CLIA [id number] [address] [place] [address] [place] Glucose [Mass/Vol] 80 mg/dL Normal 74-99 [facility] Comment on above: Order Comment: Speci brian Type: BLOOD SPECIMENOrdering Facility: [facility] Address: [address] [place] [address] Result Comment: The [place] Diabetes Association (ADA) provides guidance for cutoff values for fasting glucose and random glucose. The ADA defines fasting as no caloric intake for at least 8 hours. Fasting plasma glucose results between 100 to 125 mg/dL indicate increased risk for diabetes (prediabetes). Fasting plasma glucose results greater than or equal to 126 mg/dL meet the criteria for diagnosis of diabetes. In the absence of unequivocal hyperglycemia, results should be confirmed by repeat testing. In a patient with classic symptoms of hyperglycemia or hyperglycemic crisis, random plasma glucose results greater than or equal to 200 mg/dL meet the criteria for diagnosis of diabetes. Reference: Standards of Medical Care in Diabetes 2016, [place] [employer] Association. Diabetes Care. 2016.39(Suppl 1). Performed By: #### 6 00-7 #### [facility] CLIA [id number] [address] [place] [address] [place] Potassium [Moles/Vol] 4.5 mmol/L Normal 3.7-5.1 [facility] Comment on above: Order Comment: Speci men Type: BLOOD SPECIMENOrdering Facility: [facility] Address: [address] [place] [address] Performed By: #### 6 00-7 #### [facility] CLIA [id number] [address] STATES OF [facility] Protein [Mass/Vol] 7.1 g/dL Normal 6.3-8.0 [facility] Comment on above: Order Comment: Speci men Type: BLOOD SPECIMENOrdering Facility: [facility] Address: [address] [place] [address] Performed By: #### 6 00-7 #### [facility] CLIA [id number] [address] STATES OF [facility] Sodium [Moles/Vol] 127 mmol/L Low 136-144 [facility] Comment on above: Order Comment: Speci men Type: BLOOD SPECIMENOrdering Facility: [facility] Address: [address] [place] [address] Performed By: #### 6 00-7 #### [facility] CLIA [id number] [address] [place] Urea nitrogen [Mass/Vol] 4 mg/dL Low 9-24 [facility] Comment on above: Order Comment: Speci men Type: BLOOD SPECIMENOrdering Facility: [facility] Address: [address] [place] [address] Performed By: #### 6 00-7 #### [facility] CLIA [id number] [address] [place] ECG COMPLETEon 07-14-2024 ECG COMPLETE Ventricular Rate : 6 7 BPM Atrial Rate : 67 BPM P-R Interval : 146 ms QRS Duration : 122 ms Q-T Interval : 440 ms QTC Calculation(Bazett) : 464 ms Calculated P [place] : -5 degrees Calculated R [place] : 64 degrees Calculated T [place] : 30 degrees NORMAL SINUS RHYTHM RIGHT BUNDLE BRANCH BLOCK ABNORMAL ECG WHEN COMPARED WITH ECG OF 01-Dec-2023 09:50, PREMATURE SUPRAVENTRICULAR COMPLEXES ARE NO LONGER PRESENT Confirmed by MD SONDRA, ZENAB ([id number]) on 07/18/2024 3:09:52 PM NAME : ELIS BILLS PID : [id number] : 1960 Gender : Male Race : ORD : [id number] Procedure Date : Jul 14 2024 13:13:32 Edit Date : Jul 18 2024 15:09:55 Diagnosis: NORMAL SINUS RHYTHM RIGHT BUNDLE BRANCH BLOCK ABNORMAL ECG WHEN COMPARED WITH ECG OF 01-Dec-2023 09:50, PREMATURE SUPRAVENTRICULAR COMPLEXES ARE NO LONGER PRESENT Confirmed by MD AMARO ZENAB ([id number]) on 07/18/2024 3:09:52 PM Test Reason : HCS Location : 147 : HWwT Overread By : MD AMARO ZENAB Edited By : MD AMARO ZENAB Referred By : Viktor Acquired by : HARVEY PURVIS [facility] HISTORY PHYSICALon HISTORY PHYSICAL HNO ID: [id number] Author: HARVEY PURVIS APRN.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 Service: ? Author Type: Nurse Practitioner Type: H&P Filed: 07/14/2024 14:48 Note Text: [facility] HISTORY AND PHYSICAL EXAMINATION SERVICE DATE: 07/14/2024 SERVICE TIME: 2:48 PM PRIMARY CARE PHYSICIAN: Pilar Steele DO Assessment Patient has the following medical conditions which may affect stefan-operative course: Pre-op examination Medical conditions which may affect the perioperative course were address in today's visit. Spinal stenosis of lumbar region with neurogenic claudication Surgery scheduled 07/28/23 Obesity, Class III, BMI >= 40 BMI 41 COPD with acute exacerbation (HCC) Pt uses rescue inhaler as needed reports may 3 times per week. Uses nebulizer twice a day. Denies pneumonia in the last 6 months. Reports last hospitalization due to COPD exacerbation was 11/2023. Instructed to use inhaler as prescribed and bring DOS. Follows by Pulmonology - last OV 11/11/23 Hyperlipidemia Stable on Statin - instructed to take as prescribed Gastroesophageal reflux disease Stable on Omeprazole - instructed to take DOS 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 artery (HCC) On Plavix, statin denies residual Nicotine use disorder Quit smoking a week or so ago (04/06/24) Smoked for about 35 years 1- 2 ppd HTN (hypertension) Stable on lisinopril - instructed to hold DOS RBBB (right bundle branch block) Patient denies any symptoms. ECG today ECG 11/2023 SINUS RHYTHM WITH PREMATURE SUPRAVENTRICULAR COMPLEXES RIGHT BUNDLE BRANCH BLOCK ABNORMAL ECG Quinn Activity Status Index: METS: Climb a flight of stairs or walk up a hill (5.50 METs) DASI Score: 5.5 Patient denies any chest pain or undue shortness of breath with the above physical activity. Clinical Frailty Scale: 4. Apparently vulnerable ARISCAT Score: Age: 51-80 Preoperative SpO2: >=96% Respiratory infection in the last month: No Preoperative anemia: No Surgical incision: peripheral Duration of surgery: 2-3 hrs Emergency procedure: No ARISCAT Score: 19 ANESTHESIA FINDINGS: Intubation History: No history of difficult intubation. No abnormal airway history Significant Anesthesia Considerations: none Airway History: No history of difficult airway No abnormal airway history I - PHYSICAL EVALUATION AIRWAY Patient intubated: No. DENTAL Dental findings: missing tooth/teeth and teeth intact. II - ANESTHESIA PLAN Anesthetic Plan: general Beta Kumar Monitoring Plan Post Procedure Analgesic Plan Prepared for Surgery: CONSULTS: The following consults have been initiated at this time: primary care/internal medicine (in [facility]). Planned Anesthetic: general The Following Tests/Procedures Have Been Initiated: Orders Placed This Encounter Confirm Blood Type Standing Status: Future Number of Occurrences: 1 Standing Expiration Date: 10/13/2024 Order Specific Question: Did Blood Bank direct you to place this order: Answer: No - Presurgical Workflow Cumed 160-9-4.8 mcg/actuation HFA aerosol inhaler Sig: INHALE 2 PUFFS TWICE DAILY, RINSE MOUTH AND THROAT AFTER USE. REASON FOR VISIT: Elis Bills is a 64 year old male who is scheduled for Procedure(s): DECOMPRESSION LAMINECTOMY LUMBAR POSTERIOR LEVEL 1 (N/A) DECOMPRESSION LAMINECTOMY 1ST ADD'L LUMBAR SEGMENT (N/A) at the request of @REFPROV2@ for routine HANDP. My final recommendation will be communicated back to the requesting physician by way of shared medical record or letter. Subjective The patient has the following: COVID-19 Immunization Status Overdue - Covid-19 Vaccine (2023- season) Never done No completion, postpone, frequency change, or communication history exists for this topic. CHIEF COMPLAINT: The reason for this visit is to perform a comprehensive review of the patient's past medical history, assess their current health status and obtain any additional testing required based on anesthesia guidelines. We will also identify any potential anesthesia problems or contraindications to the planned procedure. HPI: Patient is a 64 year old male who presents for pre surgical testing. Patient reports back pain for the last year. Reports he is working with pain management and had received multiple injections in the past, getting 5 days of relief from his most recent injection. Reports continued right low back pain following the ablation. Reports pain really bad when I walk. After discussing with surgeon, patient agrees to surgical intervention. Risk and benefits discussed by surgeon. Patient denies any other problems or concerns at this time. REVIEW OF SYSTEMS: General: Negative for: fever. Neurological: Positive for: strokes. Negative for: delirium, dementia, seizures and TIA. Respiratory: Positive for: asthma, COPD and tobacc (more content not included)... Normal [facility] PT panel Coag (PPP)on 2023 INR Coag (PPP) [Relative time] 1.0 {INR} Normal 0.9-1.3 [facility] Comment on above: Order Comment: Speci men Type: BLOOD SPECIMENOrdering Facility: [facility] Address: [address] [place] [address] Result Comment: Malini min K Antagonist (VKA) Therapeutic Range: INR 2 to 3 (Target INR of 2.5) Note: For patients treated with VKA drugs, such as warfarin, the [place] [employer] 2012 Guideline recommends a therapeutic INR range of 2 to 3 (target INR of 2.5). This recommendation includes high-risk patients with antiphospholipid syndrome with previous arterial or venous thromboembolism, current-generation mechanical or bioprosthetic aortic heart valve replacement. Note: Patients with mechanical aortic valve replacement and additional risk factors for thromboembolic events (atrial fibrillation, previous thromboembolism, LV dysfunction, hypercoagulable conditions) or an older generation mechanical AVR (i.e., ball in-Cage) or any mechanical MVR should have a INR therapeutic range of 2.5 to 3.5 (target INR of 3). [place] LI, et al. Chest 2012, 141:7S-47S Deon PUTNAM et al. [facility] 2017, 70: 252-289 Performed By: #### 3 4528-0, 58408-6 ####[facility] LABCLIA [id number] [place] [address] [place] PT Coag (PPP) [Time] 10.4 s Normal <13.1 [facility] Comment on above: Order Comment: Speci men Type: BLOOD SPECIMENOrdering Facility: [facility] Address: [address] [place] [address] Performed By: #### 3 4528-0, 47164-1 ####[facility] LABCLIA [id number] [place] [address] [facility] [place] STAPHYLOCOCCUS AUREUS AND MR SA SCREEN, PCR, NASALon 07-14-2024 S. aureus and MRSA panel YADIRA+probe (Nose) Not detected Normal Not Detected [facility] Comment on above: Order Comment: Speci men Type: SWABOrdering Facility: [facility] Address: [address] [place] [address] Performed By: #### S APCR ####[facility] LABORATORYCLIA [id number] [address] OF [facility] TYPE AND SCREEN,30 DAYon ABO O Normal [facility] Comment on above: Order Comment: Speci men Type: BLOOD SPECIMEN [facility] Address: [address] [place] [address] Performed By: #### T SCR30 #### [facility] CLIA [id number] [address] OF [facility] Rh Nom (Bld) Positive Normal [facility] Comment on above: Order Comment: Speci men Type: BLOOD SPECIMEN [facility] Address: [address] [place] [address] Performed By: #### T SCR30 #### [facility] CLIA [id number] [address] Urinalysis complete panel (U )on 07-14-2024 Bilirubin Ql (U) Negative Normal Negative [facility] Comment on above: Order Comment: Speci men Type: URINE SPECIMENOrdering Facility: [facility] Address: [address] [place] [address] Performed By: #### 2 4356-8 ####[facility] LABORATORYCLIA [id number] [address] [place] Clarity (Unsp spec) Clear Normal Clear [facility] Comment on above: Order Comment: Speci men Type: URINE SPECIMENOrdering Facility: [facility] Address: [address] [place] [address] Performed By: #### 2 4356-8 ####[facility] LABORATORYCLIA [id number] [address] [place] Color (U) Colorless Normal yellow [facility] Comment on above: Order Comment: Speci men Type: URINE SPECIMENOrdering Facility: [facility] Address: [address] [place] [address] Performed By: #### 2 4356-8 ####[facility] LABORATORYCLIA [id number] [address] [place] Glucose Test strip (U) [Mass/Vol] Negative Normal Trace, Negative [facility] Comment on above: Order Comment: Speci men Type: URINE SPECIMENOrdering Facility: [facility] Address: [address] [place] [address] Performed By: #### 2 4356-8 ####[facility] LABORATORYCLIA [id number] [place] [address] [place] Hemoglobin Ql (U) Negative Normal Negative, Trace [facility] Comment on above: Order Comment: Speci men Type: URINE SPECIMENOrdering Facility: [facility] Address: [address] [place] [address] Performed By: #### 2 4356-8 ####[facility]ATORYCLIA [id number] [address] [place] Ketones Ql (U) Negative Normal Negative, Trace [facility] Comment on above: Order Comment: Speci men Type: URINE SPECIMENOrdering Facility: [facility] Address: [address] [place] [address] Performed By: #### 2 4356-8 ####[facility] LABORATORYCLIA [id number] [address] Leukocyte esterase Test strip Ql (U) Negative Normal Negative, 25 Seun/uL [facility] Comment on above: Order Comment: Speci men Type: URINE SPECIMENOrdering Facility: [facility] Address: [address] [place] [address] Performed By: #### 2 4356-8 ####[facility] LABORATORYCLIA [id number] [address] [place] Nitrite Ql (U) Negative Normal Negative [facility] Comment on above: Order Comment: Speci men Type: URINE SPECIMENOrdering Facility: [facility] Address: [address] [place] [address] Performed By: #### 2 4356-8 ####[facility] LABORATORYCLIA [id number] [address] [place] pH (U) 6.5 [pH] Normal 5.0-8.0 [facility] Comment on above: Order Comment: Speci men Type: URINE SPECIMENOrdering Facility: [facility] Address: [address] [place] [address] Performed By: #### 2 4356-8 ####[facility] LABORATORYCLIA [id number] [address] Protein (U) [Mass/Vol] Negative Normal Trace, Negative [facility] Comment on above: Order Comment: Speci men Type: URINE SPECIMENOrdering Facility: [facility] Address: [address] [place] [address] Performed By: #### 2 4356-8 ####[facility] LABORATORYCLIA [id number] [address] RBC LM.HPF (Urine sed) [#/Area] 0-3 /HPF Normal 0-3 /HPF [facility] Comment on above: Order Comment: Speci men Type: URINE SPECIMENOrdering Facility: [facility] Address: [address] [place] [address] Performed By: #### 2 4356-8 ####[facility] LABORATORYCLIA [id number] [address] Specific gravity (U) [Rel density] 1.004 Low 1.005-1.030 [facility] Comment on above: Order Comment: Speci men Type: URINE SPECIMENOrdering Facility: [facility] Address: [address] [place] [address] Performed By: #### 2 4356-8 ####[facility] LABORATORYCLIA [id number] [address] Urobilinogen Ql (U) Normal Normal Normal [facility] Comment on above: Order Comment: Speci men Type: URINE SPECIMENOrdering Facility: [facility] Address: [address] [place] [address] Performed By: #### 2 4356-8 ####[facility] [id number] [address] [place] WBC LM.HPF (Urine sed) [#/Area] 0-5 /HPF Normal 0-5 /HPF [facility] Comment on above: Order Comment: Speci men Type: URINE SPECIMENOrdering Facility: [facility] Address: [address] [place] [address] Performed By: #### 2 4356-8 ####[facility] LABORATORYCLIA [id number] [address] [place] XR CHEST 2V FRONTAL/LATon XR CHEST 2V FRONTAL/LAT * * *Final Report* * * DATE OF EXAM: Jul 14 2024 1:58PM AWX [id number] - XR CHEST 2V FRONTAL/LAT / PROCEDURE REASON: Spinal stenosis of lumbar region with neurogenic claudication * * * * Physician Interpretation * * * * EXAMINATION: CHEST RADIOGRAPH (2 VIEW FRONTAL and LATERAL) CLINICAL HISTORY: Spinal stenosis of lumbar region with neurogenic claudication. Presurgical testing. MQ: XC2_6 EXAM DATE/TIME: 07/14/2024 1:58 PM COMPARISON: AP chest 12/01/2023. RESULT: Lines, tubes, and devices: None. Lungs and pleura: No consolidation. No lung mass. No pleural effusion. No pneumothorax. Cardiomediastinal silhouette: Normal cardiomediastinal silhouette. Bones and soft tissues: Unremarkable. IMPRESSION: No acute radiographic abnormality. Package Winder: YAIR Transcribe Date/Time: Jul 18 2024 4:45P Dictated by : SUNITA SMITH MD This examination was interpreted and the report reviewed and electronically signed by: SUNITA SMITH MD on Jul 18 2024 4:46PM EST [id number] N Normal [facility] aPTT PPPon 07-14-2024 aPTT Coag (PPP) [Time] 26.5 s Normal 23.0-32.4 [facility] Comment on above: Order Comment: Speci men Type: BLOOD SPECIMENOrdering Facility: [facility] Address: [address] [place] [address] Performed By: #### 3 [id number], 64352-7 ####[facility] LABCLIA [id number] [place] [id number] [facility] CNPKrissy 06-21-2024 CNPN Telephone ([facility]) ELIS BILLS ([id number]) 1960 M Date Time Provider Department 06/21/24 LOIS KEE NEAGCLM During your visit today, we recorded the following information about you: Stephane Bazan 06/21/2024 9:20 AM Signed Attempted to contact patient to discuss surgery details. No answer and VM box full. Unable to leave a voice message Stephane Bazan 06/21/2024 11:48 AM Signed Patient returned my call. Discussed all surgery details. Answered all questions. Allergies As of Date: 06/21/2024 Noted Allergy Reaction PENICILLINS 08/27/2014 16 - Unknown Date Reviewed: 06/05/2024 Reviewed by: Helen Decker MA - Fully Assessed Reason for Visit: Preparations For Surgery [898] Prescriptions as of 06/21/2024 - nicotine polacrilex (NICORETTE) 4 mg gum Take 1 Each by mouth as needed. - albuterol HFA (PROVENTIL HFA, VENTOLIN HFA) 90 mcg/actuation inhaler Inhale 2 Puffs as instructed every 4 hours as needed for wheezing/shortness of breath. - albuterol (PROVENTIL) 2.5 mg /3 mL (0.083 %) nebulizer solution Use 3 mL via nebulizer every 4 hours as needed for wheezing/shortness of breath. Inhale over 5-15 minutes - atorvastatin (LIPITOR) 80 mg tablet Take 80 mg by mouth once daily. - montelukast (SINGULAIR) 10 mg tablet Take 1 tablet by mouth daily at bedtime. - budesonide (PULMICORT) 0.5 mg/2 mL nebulizer solution Use 2 mL via nebulizer two times a day. - lisinopril 2.5 mg tablet Take 2.5 mg by mouth once daily. - clopidogrel (PLAVIX) 75 mg tablet Take 75 mg by mouth once daily. - OMEPRAZOLE (PRILOSEC ORAL) Take 10 mg by mouth as needed. Unsure of dose Problem List As Of Date 06/21/2024 Noted Resolved Chronic bronchitis (HCC) [J42] 08/20/2023 Wheezing [R06.2] 08/20/2023 Chronic obstructive pulmonary disease with acut*08/20/2023 12/01/2023 Nicotine use disorder [F17.200] 08/20/2023 Morbid obesity (HCC) [E66.01] 08/20/2023 Lung nodules [R91.8] 11/11/2023 Severe persistent asthma [J45.50] 11/11/2023 Hyponatremia [E87.1] 12/01/2023 Lumbar stenosis [M48.061] 12/01/2023 Elevated troponin [R79.89] 12/01/2023 COPD with acute exacerbation (HCC) [J44.1] 12/01/2023 ETOH abuse [F10.10] 12/01/2023 Obesity, Class III, BMI >= 40 [E66.01] 12/01/2023 Encounter Status:Closed by STEPHANE BAZAN on 06/21/24 [facility] Donna 06-08-2024 CNPN Telephone ([facility]) ELIS BILLS ([id number]) 1960 M Date Time Provider Department 06/08/24 SHELTON AGUILERA [facility] During your visit today, we recorded the following information about you: Dalia Segura 06/08/2024 12:19 PM Signed Nebulizer orders signed AND faxed back to [facility]. Dalia Segura Allergies As of Date: 06/08/2024 Noted Allergy Reaction PENICILLINS 08/27/2014 16 - Unknown Date Reviewed: 06/05/2024 Reviewed by: Helen Decker MA - Fully Assessed Reason for Visit: FYI-No Action Needed [265] Prescriptions as of 06/08/2024 - nicotine polacrilex (NICORETTE) 4 mg gum Take 1 Each by mouth as needed. - albuterol HFA (PROVENTIL HFA, VENTOLIN HFA) 90 mcg/actuation inhaler Inhale 2 Puffs as instructed every 4 hours as needed for wheezing/shortness of breath. - albuterol (PROVENTIL) 2.5 mg /3 mL (0.083 %) nebulizer solution Use 3 mL via nebulizer every 4 hours as needed for wheezing/shortness of breath. Inhale over 5-15 minutes - atorvastatin (LIPITOR) 80 mg tablet Take 80 mg by mouth once daily. - montelukast (SINGULAIR) 10 mg tablet Take 1 tablet by mouth daily at bedtime. - budesonide (PULMICORT) 0.5 mg/2 mL nebulizer solution Use 2 mL via nebulizer two times a day. - lisinopril 2.5 mg tablet Take 2.5 mg by mouth once daily. - clopidogrel (PLAVIX) 75 mg tablet Take 75 mg by mouth once daily. - OMEPRAZOLE (PRILOSEC ORAL) Take 10 mg by mouth as needed. Unsure of dose Problem List As Of Date 06/08/2024 Noted Resolved Chronic bronchitis (HCC) [J42] 08/20/2023 Wheezing [R06.2] 08/20/2023 Chronic obstructive pulmonary disease with acut*08/20/2023 12/01/2023 Nicotine use disorder [F17.200] 08/20/2023 Morbid obesity (HCC) [E66.01] 08/20/2023 Lung nodules [R91.8] 11/11/2023 Severe persistent asthma [J45.50] 11/11/2023 Hyponatremia [E87.1] 12/01/2023 Lumbar stenosis [M48.061] 12/01/2023 Elevated troponin [R79.89] 12/01/2023 COPD with acute exacerbation (HCC) [J44.1] 12/01/2023 ETOH abuse [F10.10] 12/01/2023 Obesity, Class III, BMI >= 40 [E66.01] 12/01/2023 Encounter Status:Closed by DALIA SEGURA on 06/08/[address] [facility] [address] CHEST WO IVCONon 06-08-20 CT CHEST WO IVCON * * *Final Report* * * DATE OF EXAM: Jun 08 2024 8:30AM [facility] 0541 - CT CHEST WO IVCON / PROCEDURE REASON: chest wo * * * * Physician Interpretation * * * * EXAMINATION: CHEST CT WITHOUT CONTRAST CLINICAL HISTORY: Lung nodule follow-up. Technique: Spiral CT acquisition of the chest from the thoracic inlet to the upper abdomen without contrast. MQ: CTCWO_6 CT Radiation dose: Integrated Dose-length product (DLP) for this visit = 559 mGy*cm CT Dose Reduction Employed: Automated exposure control(AEC) and iterative recon Comparison: CT chest 12/29/2023 and 09/02/2023 RESULT: Limitations: Slightly motion degraded exam. Lines, tubes, and devices: None. Lung parenchyma and airways: No consolidation. A few tiny sub-6 mm pulmonary nodules are present, predominantly within the upper lungs, for example 2 mm in the right upper lobe (7:66), 3 mm in the right upper lobe (7:63), and 2-3 millimeters in the left upper lobe (7:32). These nodular overall decreased in conspicuity and number from the prior exam. Central airways are patent. Pleural space: No pleural effusion. No pleural thickening. Lower neck, lymph nodes, and mediastinum: The imaged thyroid gland is normal. No lymphadenopathy in the supraclavicular, axillary, mediastinal, or hilar regions. Heart, pericardium, and thoracic vessels: The thoracic aorta is normal in caliber. Borderline enlargement of the main pulmonary artery measuring up to 3.2 cm. Mild lipomatous hypertrophy of the interatrial septum. The cardiac chambers are normal in size. Scattered coronary artery atherosclerotic calcifications are noted, although the study is not optimized for coronary assessment. No pericardial effusion or thickening. Bones and soft tissues: Degenerative changes of the spine. Unchanged compression deformity of L1. No destructive osseous lesion. Upper abdomen: No abnormality in the imaged upper abdomen. Localizer images: Bilateral hip arthroplasties. IMPRESSION: Multiple tiny 2-3 millimeter pulmonary nodules are present, overall decreased in conspicuity and size from the prior, likely resolving infectious/inflammato ry process. Recommend continued attention on follow-up in 6-12 months. I agree that this report by the resident or fellow represents my interpretation of the study. Package Winder: YAIR Transcribe Date/Time: Jun 08 2024 1:33P Dictated by : TAMEKA PIKE, DO This examination was interpreted and the report reviewed and electronically signed by: JAYMIE VALLEJO MD on Jun 08 2024 2:39PM EST [id number] N Normal [facility] CT Chest WO contraston 06-08 IMPRESSION: Multiple tiny 2-3 millimeter pulmonary nodules are present, overall decreased in conspicuity and size from the prior, likely resolving infectious/inflammato ry process. Recommend continued attention on follow-up in 6-12 months. I agree that this report by the resident or fellow represents my interpretation of the study. Package Winder: YAIR Transcribe Date/Time: Jun 08 2024 1:33P Dictated by : TAMEKA PIKE DO This examination was interpreted and the report reviewed and electronically signed by: JAYMIE VALLEJO MD on Jun 08 2024 2:39PM [facility] DIVISION OF RADIOLOGY * * *Final Report* * * DATE OF EXAM: Jun 08 2024 8:30AM [facility] 0541 - CT CHEST WO IVCON / PROCEDURE REASON: chest wo * * * * Physician Interpretation * * * * EXAMINATION: CHEST CT WITHOUT CONTRAST CLINICAL HISTORY: Lung nodule follow-up. Technique: Spiral CT acquisition of the chest from the thoracic inlet to the upper abdomen without contrast. MQ: CTCWO_6 CT Radiation dose: Integrated Dose-length product (DLP) for this visit = 559 mGy*cm CT Dose Reduction Employed: Automated exposure control(AEC) and iterative recon Comparison: CT chest 12/29/2023 and 09/02/2023 RESULT: Limitations: Slightly motion degraded exam. Lines, tubes, and devices: None. Lung parenchyma and airways: No consolidation. A few tiny sub-6 mm pulmonary nodules are present, predominantly within the upper lungs, for example 2 mm in the right upper lobe (7:66), 3 mm in the right upper lobe (7:63), and 2-3 millimeters in the left upper lobe (7:32). These nodular overall decreased in conspicuity and number from the prior exam. Central airways are patent. Pleural space: No pleural effusion. No pleural thickening. Lower neck, lymph nodes, and mediastinum: The imaged thyroid gland is normal. No lymphadenopathy in the supraclavicular, axillary, mediastinal, or hilar regions. Heart, pericardium, and thoracic vessels: The thoracic aorta is normal in caliber. Borderline enlargement of the main pulmonary artery measuring up to 3.2 cm. Mild lipomatous hypertrophy of the interatrial septum. The cardiac chambers are normal in size. Scattered coronary artery atherosclerotic calcifications are noted, although the study is not optimized for coronary assessment. No pericardial effusion or thickening. Bones and soft tissues: Degenerative changes of the spine. Unchanged compression deformity of L1. No destructive osseous lesion. Upper abdomen: No abnormality in the imaged upper abdomen. Localizer images: Bilateral hip arthroplasties. DIVISION OF RADIOLOGY Provider, [facility] - 06/08/2024 * * *Final Report* * * DATE OF EXAM: Jun 08 2024 8:30AM [facility] 0541 - CT CHEST WO IVCON / PROCEDURE REASON: chest wo * * * * Physician Interpretation * * * * EXAMINATION: CHEST CT WITHOUT CONTRAST CLINICAL HISTORY: Lung nodule follow-up. Technique: Spiral CT acquisition of the chest from the thoracic inlet to the upper abdomen without contrast. MQ: CTCWO_6 CT Radiation dose: Integrated Dose-length product (DLP) for this visit = 559 mGy*cm CT Dose Reduction Employed: Automated exposure control(AEC) and iterative recon Comparison: CT chest 12/29/2023 and 09/02/2023 RESULT: Limitations: Slightly motion degraded exam. Lines, tubes, and devices: None. Lung parenchyma and airways: No consolidation. A few tiny sub-6 mm pulmonary nodules are present, predominantly within the upper lungs, for example 2 mm in the right upper lobe (7:66), 3 mm in the right upper lobe (7:63), and 2-3 millimeters in the left upper lobe (7:32). These nodular overall decreased in conspicuity and number from the prior exam. Central airways are patent. Pleural space: No pleural effusion. No pleural thickening. Lower neck, lymph nodes, and mediastinum: The imaged thyroid gland is normal. No lymphadenopathy in the supraclavicular, axillary, mediastinal, or hilar regions. Heart, pericardium, and thoracic vessels: The thoracic aorta is normal in caliber. Borderline enlargement of the main pulmonary artery measuring up to 3.2 cm. Mild lipomatous hypertrophy of the interatrial septum. The cardiac chambers are normal in size. Scattered coronary artery atherosclerotic calcifications are noted, although the study is not optimized for coronary assessment. No pericardial effusion or thickening. Bones and soft tissues: Degenerative changes of the spine. Unchanged compression deformity of L1. No destructive osseous lesion. Upper abdomen: No abnormality in the imaged upper abdomen. Localizer images: Bilateral hip arthroplasties. IMPRESSION IMPRESSION: Multiple tiny 2-3 millimeter pulmonary nodules are present, overall decreased in conspicuity and size from the prior, likely resolving infectious/inflammato ry process. Recommend continued attention on follow-up in 6-12 months. I agree that this report by the resident or fellow represents my interpretation of the study. Package Winder: YAIR Transcribe Date/Time: Jun 08 2024 1:33P Dictated by : TAMEKA PIKE, DO This examination was interpreted and the report reviewed and electronically signed by: JAYMIE VALLEJO MD on Jun 08 2024 2:39PM EST [facility] Radiology Study observation (narrative) [facility] CT Chest WO contrastOrdered By: Ccf Provider on 06-08-2024 [facility] CNOVon 06-05-2024 CNOV Office Visit (NEAGCLM) ELIS BILLS ([id number]) 1960 M Date Time Provider Department 06/05/24 9:15 AM LOIS KEE NEAGCLM During your visit today, we recorded the following information about you: Pulse Respiration Blood pressure Weight 72/minute 20/minute 161/84 129.5 kg Lois Kee MD 06/05/2024 10:19 AM Signed NEUROSURGERY FOLLOW UP OFFICE NOTE Lois Kee MD [facility] Date of visit: June 05, 2024 Patient Name: Mr.Donald Tim Bills Date of : 1960 Current Age: [age] year old Sex: male MRN/E# [id number] Last Office Visit: 04/06/2024 Chief Complaint: Patient presents with: Established Patient Past Medical/Surgical History: Elis Bills is a 63 year old male who is referred by Bertha Schumacher APRN, CNP with pain management for neurosurgical evaluation. The patient has a history of COPD, hypercholesterolemia, stroke. Smoking: quit about a month ago Alcohol Use: + 6 pack a day HPI: Mr. Bills was seen in the office as a new patient on 04/06/2024 with reports of a year history of right sided low back pain that did not radiate into the lower extremities. He was established with pain management and had received multiple injections in the past, getting 5 days of relief from his most recent injection. Sitting and leaning forward at the waist helped relieve some of the pain. His MRI was reviewed with him which showed some STIR signal within the L1 vertebral body which was likely representing a compression fracture though the MRI was from 4 to 5 months ago so the fracture was likely healed. His MRI also showed significant amount of epidural lipomatosis causing severe stenosis at L2-3 and L3-4. He also had retrolisthesis at L4 over L5 and likely pars defect at that level. Given that his symptoms were localized to focal back pain it was explained that surgery may not be recommended at that time. He was also very high risk for surgery given his body habitus Plavix use smoking history alcohol use and COPD. He was advised to attempt an ablation first to see if he would get meaningful relief as that would provide some guidance to whether or not surgery would benefit him. He was to follow-up in a couple of months with flexion-extension x-rays for reevaluation prompting his visit today. The patient presents to the office today with continued right low back pain following the ablation. He got about a week of some relief following the ablation but the pain has returned and is the same intensity as before. He denies leg pain, paresthesia, weakness. He is here for evaluation and plan of care. Symptoms: right low back pain PREVIOUS CONSERVATIVE TREATMENTS: Pain management - Spine and Pain Injection - 10/28/2023 - bilateral L4-5 and L5-S1 MBB - no relief - 12/16/2023 - bilateral L3-4 and L4-5 MBB - unsure - 03/16/2024 - midline L4-5 ILESI - 5 days Flexeril PREVIOUS SURGERY: None Surgical Risk Factors: Smoking status: + 0.5 PPD - quitting - +nicotine gum and candy Anticoagulants/antipl atelets: +PLAVIX 75mg daily Diabetic: denies BMI: 44.37 PAIN EVALUATION 06/05/2024 0904 Pain Level: 8 Pain Location: Back-Lower right side of back Description: -- unknown Duration Amount of Time: 3 Duration Units: Days Frequency: Continuous Comments: Got worse since Wednesday PAST MEDICAL HISTORY Diagnosis Date COPD (chronic obstructive pulmonary disease) (HCC) Hypercholesteremia Stroke (HCC) History reviewed. No pertinent surgical history. FAMILY HISTORY Problem Relation Age of Onset No Known Problems Mother Leukemia Father ALLERGIES Allergen Reactions Penicillins Unknown Current Outpatient Medications Medication Sig Dispense Refill nicotine polacrilex (NICORETTE) 4 mg gum Take 1 Each by mouth as needed. 300 Each 3 albuterol HFA (PROVENTIL HFA, VENTOLIN HFA) 90 mcg/actuation inhaler Inhale 2 Puffs as instructed every 4 hours as needed for wheezing/shortness of breath. 3 Each 3 albuterol (PROVENTIL) 2.5 mg /3 mL (0.083 %) nebulizer solution Use 3 mL via nebulizer every 4 hours as needed for wheezing/shortness of breath. Inhale over 5-15 minutes atorvastatin (LIPITOR) 80 mg tablet Take 80 mg by mouth once daily. montelukast (SINGULAIR) 10 mg tablet Take 1 tablet by mouth daily at bedtime. 90 tablet 3 budesonide (PULMICORT) 0.5 mg/2 mL nebulizer solution Use 2 mL via nebulizer two times a day. 360 mL 3 lisinopril 2.5 mg tablet Take 2.5 mg by mouth once daily. clopidogrel (PLAVIX) 75 mg tablet Take 75 mg by mouth once daily. OMEPRAZOLE (PRILOSEC ORAL) Take 10 mg by mouth as needed. Unsure of dose No current facility-administered medications for this visit. REVIEW OF SYSTEMS Review of Systems Constitutional: Negative for chills, fatigue and fever. HENT: Negative for ear pain, hearing loss and tinnitus. Eyes: Neg (more content not included)... Normal [facility] XR LUMBAR 4V AP/LAT/ FLEX/EX Ton 06-05-2024 XR LUMBAR 4V AP/LAT/ FLEX/EXT * * *Final Report* * * DATE OF EXAM: Jun 05 2024 8:59AM A1X 5231 - XR LUMBAR 4V AP/LAT/ FLEX/EXT / PROCEDURE REASON: Low back pain, unspecified back pain laterality, unspecified chronicity, unspeci * * * * Physician Interpretation * * * * EXAMINATION / TECHNIQUE: XR LUMBAR 4V AP/LAT/ FLEX/EXT HISTORY: Rt side low back pain, denies leg problems no known injury Low back pain, unspecified back pain laterality, unspecified chronicity, unspecified whether sciatica present . COMPARISON: Lumbar MRI 11/19/2023 RESULT: Chronic mild/moderate anterior compression deformity of L1 is similar to prior. Grade 1 retrolisthesis L1-2, L2-3, and L4-5 on the neutral view has a similar appearance on the extension view and is decreased on the flexion view. L5 spondylolysis with grade 1 anterolisthesis at L5-S1 on the neutral view is unchanged on the flexion/extension view. Mild rightward curvature of the lumbar spine. Multilevel disc space narrowing, most pronounced at L3-4. Multilevel osteophytes and facet arthrosis. Bilateral hip arthroplasty is partially imaged. Counting reference: Lumbosacral junction. For the purposes of this report, the iliac crests are situated at the upper L4 vertebral body level and assume there are 5 lumbar-type vertebrae. Anatomic variant: None. IMPRESSION: Chronic L1 compression deformity, similar to prior. L5 spondylolysis with grade 1 anterolisthesis at L5-S1. Degenerative changes as described. Package Winder: PSCB Transcribe Date/Time: Jun 08 2024 9:34A Dictated by : GOLD LUTHER MD This examination was interpreted and the report reviewed and electronically signed by: GOLD LUTHER MD on Jun 08 2024 9:42AM EST [id number] N [facility] 05-31-2024 [facility] Telephone ([facility]) ELIS BILLS ([id number]) 1960 M Date Time Provider Department 05/31/24 SHELTON AGUILERA [facility] During your visit today, we recorded the following information about you: Dalia Segura 05/31/2024 12:24 PM Signed Nebul[facility] Dalia Segura Allergies As of Date: 05/31/2024 Noted Allergy Reaction PENICILLINS 08/27/2014 16 - Unknown Date Reviewed: 05/10/2024 Reviewed by: Kalee Mazariegos LPN - Fully Assessed Reason for Visit: FYI-No Action Needed [265] Prescriptions as of 05/31/2024 - nicotine polacrilex (NICORETTE) 4 mg gum Take 1 Each by mouth as needed. - albuterol HFA (PROVENTIL HFA, VENTOLIN HFA) 90 mcg/actuation inhaler Inhale 2 Puffs as instructed every 4 hours as needed for wheezing/shortness of breath. - albuterol (PROVENTIL) 2.5 mg /3 mL (0.083 %) nebulizer solution Use 3 mL via nebulizer every 4 hours as needed for wheezing/shortness of breath. Inhale over 5-15 minutes - atorvastatin (LIPITOR) 80 mg tablet Take 80 mg by mouth once daily. - montelukast (SINGULAIR) 10 mg tablet Take 1 tablet by mouth daily at bedtime. - budesonide (PULMICORT) 0.5 mg/2 mL nebulizer solution Use 2 mL via nebulizer two times a day. - lisinopril 2.5 mg tablet Take 2.5 mg by mouth once daily. - clopidogrel (PLAVIX) 75 mg tablet Take 75 mg by mouth once daily. - OMEPRAZOLE (PRILOSEC ORAL) Take 10 mg by mouth as needed. Unsure of dose Problem List As Of Date 05/31/2024 Noted Resolved Chronic bronchitis (HCC) [J42] 08/20/2023 Wheezing [R06.2] 08/20/2023 Chronic obstructive pulmonary disease with acut*08/20/2023 12/01/2023 Nicotine use disorder [F17.200] 08/20/2023 Morbid obesity (HCC) [E66.01] 08/20/2023 Lung nodules [R91.8] 11/11/2023 Severe persistent asthma [J45.50] 11/11/2023 Hyponatremia [E87.1] 12/01/2023 Lumbar stenosis [M48.061] 12/01/2023 Elevated troponin [R79.89] 12/01/2023 COPD with acute exacerbation (HCC) [J44.1] 12/01/2023 ETOH abuse [F10.10] 12/01/2023 Obesity, Class III, BMI >= 40 [E66.01] 12/01/2023 Encounter Status:Closed by DALIA SEGURA on 05/31/24 [facility] Donna 04-27-2024 NABORN Telephone ([facility]) ELIS BILLS ([id number]) 1960 M Date Time Provider Department 04/27/24 EVERTON DECKER [facility] During your visit today, we recorded the following information about you: Celeste Tong 04/27/2024 3:57 PM Signed Called patient to scheduled BL RFA per Bertha's check out notes on their virtual visit today. Patient has his 2nd MBB procedure on 05/10 ,Patient states that when he seen on on 04/26 for his 1st MBB , they spoke about doing the RFA on 05/10 instead of the 2nd MBB. I was unsure so I advised patient that I would reach out and ask. Also,patient states all his pain is on the right side of his back so he is confused as to why he is getting both sides done. Please clarify . Bertha Spring APRN.CNP 04/27/2024 4:04 PM Signed I spoke to Vivian Fried after my discussion with the pt and she is going to attempt to get him scheduled in that time slot, please defer to her. Thanks. Vivian Fried 04/28/2024 9:01 AM Signed Allergies As of Date: 04/27/2024 Noted Allergy Reaction PENICILLINS 08/27/2014 16 - Unknown Date Reviewed: 04/27/2024 Reviewed by: Bertha Schumacher APRN.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 - Fully Assessed Reason for Visit: Appointment [186] Prescriptions as of 05/01/2024 - cyclobenzaprine (FLEXERIL) 10 mg tablet Take 1 tablet by mouth three times a day as needed. - nicotine polacrilex (NICORETTE) 4 mg gum Take 1 Each by mouth as needed. - albuterol HFA (PROVENTIL HFA, VENTOLIN HFA) 90 mcg/actuation inhaler Inhale 2 Puffs as instructed every 4 hours as needed for wheezing/shortness of breath. - albuterol (PROVENTIL) 2.5 mg /3 mL (0.083 %) nebulizer solution Use 3 mL via nebulizer every 4 hours as needed for wheezing/shortness of breath. Inhale over 5-15 minutes - atorvastatin (LIPITOR) 80 mg tablet Take 80 mg by mouth once daily. - montelukast (SINGULAIR) 10 mg tablet Take 1 tablet by mouth daily at bedtime. - budesonide (PULMICORT) 0.5 mg/2 mL nebulizer solution Use 2 mL via nebulizer two times a day. - lisinopril 2.5 mg tablet Take 2.5 mg by mouth once daily. - clopidogrel (PLAVIX) 75 mg tablet Take 75 mg by mouth once daily. - OMEPRAZOLE (PRILOSEC ORAL) Take 10 mg by mouth as needed. Unsure of dose Problem List As Of Date 04/27/2024 Noted Resolved Chronic bronchitis (HCC) [J42] 08/20/2023 Wheezing [R06.2] 08/20/2023 Chronic obstructive pulmonary disease with acut*08/20/2023 12/01/2023 Nicotine use disorder [F17.200] 08/20/2023 Morbid obesity (HCC) [E66.01] 08/20/2023 Lung nodules [R91.8] 11/11/2023 Severe persistent asthma [J45.50] 11/11/2023 Hyponatremia [E87.1] 12/01/2023 Lumbar stenosis [M48.061] 12/01/2023 Elevated troponin [R79.89] 12/01/2023 COPD with acute exacerbation (HCC) [J44.1] 12/01/2023 ETOH abuse [F10.10] 12/01/2023 Obesity, Class III, BMI >= 40 [E66.01] 12/01/2023 Encounter Status:Closed by VIVIAN FRIED on 04/28/24 [facility] CNOVon 04-06-2024 CNOV Office Visit (NEAGCLM) ELIS BILLS ([id number]) 1960 M Date Time Provider Department 04/06/24 9:30 AM LOIS KEE NEAGCLM During your visit today, we recorded the following information about you: Pulse Respiration Blood pressure Weight 74/minute 18/minute 154/89 128.5 kg Height 1.702 m Lois Kee MD 04/06/2024 10:06 AM Signed NEUROSURGERY CONSULT NOTE Lois Kee MD [facility] Date of visit: April 06, 2024 Patient Name: Mr.Donald Tim Bills Date of : 1960 Current Age: [age] year old Sex: male MRN/E# [id number] Last Office Visit: Visit date not found Chief Complaint: Patient presents with: New Patient Past Medical/Surgical History: Elis Bills is a 63 year old male who is referred by Bertha Schumacher APRN, CNP with pain management for neurosurgical evaluation. The patient has a history of COPD, hypercholesterolemia, stroke. Smoking: + 0.5 PPD. Alcohol Use: + 6 pack a day HISTORY OF PRESENT ILLNESS : The patient presents to the office today as a new patient for evaluation of his lumbar spine. He states he has had a year history of right sided low back pain. He denies any pain into the legs. He follows with pain management and has received multiple injections. He states that sitting, leaning forward at the waist help to relieve some of the pain. He will occasionally take extra strength tylenol. He takes Plavix daily for history of stroke. He received 5 days of relief with the last injection he received. He denies paresthesia, falls, bowel/bladder dysfunction. He is here for image review, evaluation and plan of care. Symptoms: right low back pain PREVIOUS CONSERVATIVE TREATMENTS: Pain management - Spine and Pain Injection - 10/28/2023 - bilateral L4-5 and L5-S1 MBB - no relief - 12/16/2023 - bilateral L3-4 and L4-5 MBB - unsure - 03/16/2024 - midline L4-5 ILESI - 5 days Flexeril PREVIOUS SURGERY: None Surgical Risk Factors: Smoking status: + 0.5 PPD - quitting - +nicotine gum and candy Anticoagulants/antipl atelets: +PLAVIX 75mg daily Diabetic: denies BMI: 44.37 PAIN EVALUATION 04/05/2024 1522 Pain Level: 10 Pain Location: Back-Lower Description: Sharp;Shooting;Spasm; Stabbing;Stiffness Duration Amount of Time: 10 Duration Units: Minutes Frequency: Continuous Intervention/Comfort measure: Medication;Reposition ;Relaxation;Exercise; Massage Comments: Bent over while standing due to pain cannot walk far PAST MEDICAL HISTORY Diagnosis Date COPD (chronic obstructive pulmonary disease) (HCC) Hypercholesteremia Stroke ([facility]) No past surgical history on file. FAMILY HISTORY Problem Relation Age of Onset No Known Problems Mother Leukemia Father ALLERGIES Allergen Reactions Penicillins Unknown Current Outpatient Medications Medication Sig Dispense Refill cyclobenzaprine (FLEXERIL) 10 mg tablet Take 1 tablet by mouth three times a day as needed. 90 tablet 2 nicotine polacrilex (NICORETTE) 4 mg gum Take 1 Each by mouth as needed. 300 Each 3 albuterol HFA (PROVENTIL HFA, VENTOLIN HFA) 90 mcg/actuation inhaler Inhale 2 Puffs as instructed every 4 hours as needed for wheezing/shortness of breath. 3 Each 3 albuterol (PROVENTIL) 2.5 mg /3 mL (0.083 %) nebulizer solution Use 3 mL via nebulizer every 4 hours as needed for wheezing/shortness of breath. Inhale over 5-15 minutes atorvastatin (LIPITOR) 80 mg tablet Take 80 mg by mouth once daily. montelukast (SINGULAIR) 10 mg tablet Take 1 tablet by mouth daily at bedtime. 90 tablet 3 budesonide (PULMICORT) 0.5 mg/2 mL nebulizer solution Use 2 mL via nebulizer two times a day. 360 mL 3 lisinopril 2.5 mg tablet Take 2.5 mg by mouth once daily. clopidogrel (PLAVIX) 75 mg tablet Take 75 mg by mouth once daily. OMEPRAZOLE (PRILOSEC ORAL) Take 10 mg by mouth as needed. Unsure of dose No current facility-administered medications for this visit. REVIEW OF SYSTEMS Review of Systems Constitutional: Negative for chills, fatigue and fever. HENT: Negative for ear pain, hearing loss and tinnitus. Eyes: Negative for photophobia, pain and visual disturbance. Respiratory: Negative for shortness of breath. Cardiovascular: Negative for chest pain. Gastrointestinal: Negative for constipation, diarrhea, nausea and vomiting. Endocrine: Negative for polydipsia, polyphagia and polyuria. Genitourinary: Negative for difficulty urinating, frequency and urgency. Musculoskeletal: Positive for back pain. Negative for gait problem, neck pain and neck stiffness. Skin: Negative for color change. Neurological: Negative for dizziness, weakness, light-headedness and numbness. Psychiatric/Behaviora l: Negative for agitation and confusion. The patient is not nervous/anxious. OBJECTIVE: BP 154/89 Pulse 74 Resp 18 Ht 5' 7 (1.70m) Wt 283 lb 4.7 oz (128.5kg) SpO2 9 (more content not included)... [facility] Telephone (AGSPINE1) ELIS BILLS ([id number]) 1960 Date Time Provider Department 03/31/24 DHIRAJ HERR AGSPINE1 During your visit today, we recorded the following information about you: Oziel Rubalcava 03/31/2024 10:55 AM Signed Procedure(s) being scheduled: 1.Are you diabetic No 2. Are you on any blood thinners? Yes. Please list the current medications being prescribed plavix. If yes, does it require a hold? No If yes, was approval letter sent? No 3. Are you taking any aspirin? No 4. Are you currently taking any antibiotics? No If yes, is it prophylactic or for treatment of an infection? NA 5. Do you have any allergies to latex? No 6. Do you have any allergies to seafood or shellfish? No 7. Do you have any allergies to x-ray dye? No 8. Did the physician instruct you to take any medication prior to your procedure? No 9. Does this procedure require a charter coach driver? Yes If yes, has patient been notified that a charter coach driver is needed and must be present at check in? yes 10. Were the pre-procedure instructions explained and provided to the patient? Yes 11. Do you have a pacemaker? No 12. Do you have an internal stimulator of any kind? No If yes, please bring the remote with you to your procedure visit. 13. Have you received the COVID-19 Vaccine? No. If yes, date(s) received: na (Patient should not receive a procedure including steroids 14 days prior to their first dose of the COVID vaccine. They should not receive any procedure containing steroids in the time frame between their 1st and 2nd doses of the COVID vaccine. They should not receive a procedure containing steroids 14 days after their 2nd dose of the COVID vaccine.) Allergies As of Date: 03/31/2024 Noted Allergy Reaction PENICILLINS 08/27/2014 16 - Unknown Date Reviewed: 03/30/2024 Reviewed by: Bertha Schumacher APRN.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 - Fully Assessed Reason for Visit: injection questions [Other] Prescriptions as of 03/31/2024 - cyclobenzaprine (FLEXERIL) 10 mg tablet Take 1 tablet by mouth three times a day as needed. - mometasone-formoterol (DULERA) 200-5 mcg/actuation inhaler Inhale 2 Puffs as instructed two times a day. - predniSONE (DELTASONE) 20 mg tablet Take 2 tablets by mouth once daily. - nicotine polacrilex (NICORETTE) 4 mg gum Take 1 Each by mouth as needed. - tiotropium bromide (SPIRIVA RESPIMAT) 2.5 mcg/actuation inhaler Inhale 2 Puffs as instructed once daily. - albuterol HFA (PROVENTIL HFA, VENTOLIN HFA) 90 mcg/actuation inhaler Inhale 2 Puffs as instructed every 4 hours as needed for wheezing/shortness of breath. - albuterol (PROVENTIL) 2.5 mg /3 mL (0.083 %) nebulizer solution Use 3 mL via nebulizer every 4 hours as needed for wheezing/shortness of breath. Inhale over 5-15 minutes - thiamine (VITAMIN B1) 100 mg tablet Take 1 tablet by mouth three times a day. - atorvastatin (LIPITOR) 80 mg tablet Take 80 mg by mouth once daily. - montelukast (SINGULAIR) 10 mg tablet Take 1 tablet by mouth daily at bedtime. - budesonide (PULMICORT) 0.5 mg/2 mL nebulizer solution Use 2 mL via nebulizer two times a day. - lisinopril 2.5 mg tablet Take 2.5 mg by mouth once daily. - clopidogrel (PLAVIX) 75 mg tablet Take 75 mg by mouth once daily. - OMEPRAZOLE (PRILOSEC ORAL) Take 10 mg by mouth as needed. Unsure of dose - MEDICATION, NON-DATABASE OTC cold med Problem List As Of Date 03/31/2024 Noted Resolved Chronic bronchitis (HCC) [J42] 08/20/2023 Wheezing [R06.2] 08/20/2023 Chronic obstructive pulmonary disease with acut*08/20/2023 12/01/2023 Nicotine use disorder [F17.200] 08/20/2023 Morbid obesity (HCC) [E66.01] 08/20/2023 Lung nodules [R91.8] 11/11/2023 Severe persistent asthma [J45.50] 11/11/2023 Hyponatremia [E87.1] 12/01/2023 Lumbar stenosis [M48.061] 12/01/2023 Elevated troponin [R79.89] 12/01/2023 COPD with acute exacerbation (HCC) [J44.1] 12/01/2023 ETOH abuse [F10.10] 12/01/2023 Obesity, Class III, BMI >= 40 [E66.01] 12/01/2023 Encounter Status:Closed by OZIEL RUBALCAVA on 03/31/24 [facility] 03-30-2024 [facility] Telephone (SPAGWO) ELIS BILLS ([id number]) 1960 M Date Time Provider Department 03/30/24 DHIRAJ HERR SPATheravanceWO During your visit today, we recorded the following information about you: Oziel Rubalcava 03/31/2024 8:20 AM Addendum B/L MBNB L3-L4, L4-L5, w fluoro Called pt to schedule procedure, LVM Oziel Rosio Allergies As of Date: 03/30/2024 Noted Allergy Reaction PENICILLINS 08/27/2014 16 - Unknown Date Reviewed: 03/30/2024 Reviewed by: Bertha Schumacher APRN.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 - Fully Assessed Reason for Visit: Appointment [186] Prescriptions as of 03/31/2024 - cyclobenzaprine (FLEXERIL) 10 mg tablet Take 1 tablet by mouth three times a day as needed. - mometasone-formoterol (DULERA) 200-5 mcg/actuation inhaler Inhale 2 Puffs as instructed two times a day. - predniSONE (DELTASONE) 20 mg tablet Take 2 tablets by mouth once daily. - nicotine polacrilex (NICORETTE) 4 mg gum Take 1 Each by mouth as needed. - tiotropium bromide (SPIRIVA RESPIMAT) 2.5 mcg/actuation inhaler Inhale 2 Puffs as instructed once daily. - albuterol HFA (PROVENTIL HFA, VENTOLIN HFA) 90 mcg/actuation inhaler Inhale 2 Puffs as instructed every 4 hours as needed for wheezing/shortness of breath. - albuterol (PROVENTIL) 2.5 mg /3 mL (0.083 %) nebulizer solution Use 3 mL via nebulizer every 4 hours as needed for wheezing/shortness of breath. Inhale over 5-15 minutes - thiamine (VITAMIN B1) 100 mg tablet Take 1 tablet by mouth three times a day. - atorvastatin (LIPITOR) 80 mg tablet Take 80 mg by mouth once daily. - montelukast (SINGULAIR) 10 mg tablet Take 1 tablet by mouth daily at bedtime. - budesonide (PULMICORT) 0.5 mg/2 mL nebulizer solution Use 2 mL via nebulizer two times a day. - lisinopril 2.5 mg tablet Take 2.5 mg by mouth once daily. - clopidogrel (PLAVIX) 75 mg tablet Take 75 mg by mouth once daily. - OMEPRAZOLE (PRILOSEC ORAL) Take 10 mg by mouth as needed. Unsure of dose - MEDICATION, NON-DATABASE OTC cold med Problem List As Of Date 03/30/2024 Noted Resolved Chronic bronchitis (HCC) [J42] 08/20/2023 Wheezing [R06.2] 08/20/2023 Chronic obstructive pulmonary disease with acut*08/20/2023 12/01/2023 Nicotine use disorder [F17.200] 08/20/2023 Morbid obesity (HCC) [E66.01] 08/20/2023 Lung nodules [R91.8] 11/11/2023 Severe persistent asthma [J45.50] 11/11/2023 Hyponatremia [E87.1] 12/01/2023 Lumbar stenosis [M48.061] 12/01/2023 Elevated troponin [R79.89] 12/01/2023 COPD with acute exacerbation (HCC) [J44.1] 12/01/2023 ETOH abuse [F10.10] 12/01/2023 Obesity, Class III, BMI >= 40 [E66.01] 12/01/2023 Encounter Status:Closed by OZIEL RUBALCAVA on 03/30/24 [facility] 03-17-2024 CNPN Telephone (AGSPHWG) ELIS BILLS ([id number]) 1960 M Date Time Provider Department 03/17/24 EVERTON DECKER AGSPHWG During your visit today, we recorded the following information about you: Stephan Pacheco MA 03/17/2024 10:29 AM Signed Spoke with patient following up from procedure. Patient states they are doing well, no questions or concerns at this time. Stephan Pacheco CMA Allergies As of Date: 03/17/2024 Noted Allergy Reaction PENICILLINS 08/27/2014 16 - Unknown Date Reviewed: 03/16/2024 Reviewed by: Everton Decker MD - Fully Assessed Reason for Visit: Procedure Follow Up [1139] Prescriptions as of 03/17/2024 - cyclobenzaprine (FLEXERIL) 10 mg tablet Take 1 tablet by mouth three times a day as needed. - mometasone-formoterol (DULERA) 200-5 mcg/actuation inhaler Inhale 2 Puffs as instructed two times a day. - predniSONE (DELTASONE) 20 mg tablet Take 2 tablets by mouth once daily. - nicotine polacrilex (NICORETTE) 4 mg gum Take 1 Each by mouth as needed. - tiotropium bromide (SPIRIVA RESPIMAT) 2.5 mcg/actuation inhaler Inhale 2 Puffs as instructed once daily. - albuterol HFA (PROVENTIL HFA, VENTOLIN HFA) 90 mcg/actuation inhaler Inhale 2 Puffs as instructed every 4 hours as needed for wheezing/shortness of breath. - albuterol (PROVENTIL) 2.5 mg /3 mL (0.083 %) nebulizer solution Use 3 mL via nebulizer every 4 hours as needed for wheezing/shortness of breath. Inhale over 5-15 minutes - thiamine (VITAMIN B1) 100 mg tablet Take 1 tablet by mouth three times a day. - atorvastatin (LIPITOR) 80 mg tablet Take 80 mg by mouth once daily. - montelukast (SINGULAIR) 10 mg tablet Take 1 tablet by mouth daily at bedtime. - budesonide (PULMICORT) 0.5 mg/2 mL nebulizer solution Use 2 mL via nebulizer two times a day. - lisinopril 2.5 mg tablet Take 2.5 mg by mouth once daily. - clopidogrel (PLAVIX) 75 mg tablet Take 75 mg by mouth once daily. - OMEPRAZOLE (PRILOSEC ORAL) Take 10 mg by mouth as needed. Unsure of dose - MEDICATION, NON-DATABASE OTC cold med Problem List As Of Date 03/17/2024 Noted Resolved Chronic bronchitis (HCC) [J42] 08/20/2023 Wheezing [R06.2] 08/20/2023 Chronic obstructive pulmonary disease with acut*08/20/2023 12/01/2023 Nicotine use disorder [F17.200] 08/20/2023 Morbid obesity (HCC) [E66.01] 08/20/2023 Lung nodules [R91.8] 11/11/2023 Severe persistent asthma [J45.50] 11/11/2023 Hyponatremia [E87.1] 12/01/2023 Lumbar stenosis [M48.061] 12/01/2023 Elevated troponin [R79.89] 12/01/2023 COPD with acute exacerbation (HCC) [J44.1] 12/01/2023 ETOH abuse [F10.10] 12/01/2023 Obesity, Class III, BMI >= 40 [E66.01] 12/01/2023 Encounter Status:Closed by STEPHAN PACHECO on 03/17/24 [facility] 03-16-2024 NAB[facility] Telephone (SPAGWO) ELIS BILLS ([id number]) 1960 M Date Time Provider Department 03/16/24 BERTHA SCHUMACHER During your visit today, we recorded the following information about you: Bertha Schumacher APRN.CNP 03/16/2024 8:14 AM Signed Could you proof read this please. Thanks. Allergies As of Date: 03/16/2024 Noted Allergy Reaction PENICILLINS 08/27/2014 16 - Unknown Date Reviewed: 02/24/2024 Reviewed by: Bertha Schumacher APRN.[facility] - Fully Assessed Reason for Visit: Orders [681] Prescriptions as of 03/16/2024 - cyclobenzaprine (FLEXERIL) 10 mg tablet Take 1 tablet by mouth three times a day as needed. - mometasone-formoterol (DULERA) 200-5 mcg/actuation inhaler Inhale 2 Puffs as instructed two times a day. - predniSONE (DELTASONE) 20 mg tablet Take 2 tablets by mouth once daily. - nicotine polacrilex (NICORETTE) 4 mg gum Take 1 Each by mouth as needed. - tiotropium bromide (SPIRIVA RESPIMAT) 2.5 mcg/actuation inhaler Inhale 2 Puffs as instructed once daily. - albuterol HFA (PROVENTIL HFA, VENTOLIN HFA) 90 mcg/actuation inhaler Inhale 2 Puffs as instructed every 4 hours as needed for wheezing/shortness of breath. - albuterol (PROVENTIL) 2.5 mg /3 mL (0.083 %) nebulizer solution Use 3 mL via nebulizer every 4 hours as needed for wheezing/shortness of breath. Inhale over 5-15 minutes - thiamine (VITAMIN B1) 100 mg tablet Take 1 tablet by mouth three times a day. - atorvastatin (LIPITOR) 80 mg tablet Take 80 mg by mouth once daily. - montelukast (SINGULAIR) 10 mg tablet Take 1 tablet by mouth daily at bedtime. - budesonide (PULMICORT) 0.5 mg/2 mL nebulizer solution Use 2 mL via nebulizer two times a day. - lisinopril 2.5 mg tablet Take 2.5 mg by mouth once daily. - clopidogrel (PLAVIX) 75 mg tablet Take 75 mg by mouth once daily. - OMEPRAZOLE (PRILOSEC ORAL) Take 10 mg by mouth as needed. Unsure of dose - MEDICATION, NON-DATABASE OTC cold med Problem List As Of Date 03/16/2024 Noted Resolved Chronic bronchitis (HCC) [J42] 08/20/2023 Wheezing [R06.2] 08/20/2023 Chronic obstructive pulmonary disease with acut*08/20/2023 12/01/2023 Nicotine use disorder [F17.200] 08/20/2023 Morbid obesity (HCC) [E66.01] 08/20/2023 Lung nodules [R91.8] 11/11/2023 Severe persistent asthma [J45.50] 11/11/2023 Hyponatremia [E87.1] 12/01/2023 Lumbar stenosis [M48.061] 12/01/2023 Elevated troponin [R79.89] 12/01/2023 COPD with acute exacerbation (HCC) [J44.1] 12/01/2023 ETOH abuse [F10.10] 12/01/2023 Obesity, Class III, BMI >= 40 [E66.01] 12/01/2023 Letter Text Encounter Status:Closed by BERTHA SCHUMACHER on 03/16/24 [facility] 03-15-2024 NABORN Telephone (AGSPINE3) ELIS BILLS ([id number]) 1960 M Date Time Provider Department 03/15/24 EVERTON DECKER AGSPINE3 During your visit today, we recorded the following information about you: Rafi Chanda 03/15/2024 8:12 AM Signed ----- Message from Johnny Owusu sent at 03/14/2024 4:14 PM EDT ----- Regarding: Spine AND Pain / Everton Decker) / Procedure / Injection Patient: Elis Bills Date of : 1960 Primary Care Provider: Pilar Steele DO Patient has been identified by name and Date of (Y/N): y Patient: Elis Bills Date of : 1960 Provider for this encounter: Pilar Steele DO Reason for the call/escalation: Pt's called in to return call from office regarding procedure that was originally scheduled with Dr Everton Decker on 03/16. Appt was cancelled by office because procedure was denied by insurance, but pt stated that they would be self-paying the procedure, and will need to have it rescheduled for 03/16. Pt requested call back from office for assistance with this appt. Was Patient Referred to [facility]/Seek Emergency Treatment (Y/N): n Did Patient Agree (Y/N): n Was An Attempt Made To Transfer The Patient To The Office (Y/N): n Were You Able To Reach Someone At The Office (Y/N): n If Yes - Patient Was Transferred To (Caregivers Name): n If No - Which [facility] Leadership Business Associate Did You Speak With Regarding This Patient: n Was an appointment scheduled (Y/N): n/a Reason patient was requesting visit (RFV/signs and symptoms/diagnosis) : procedure Person calling if other than patient: Spouse, Mehreen Bills Return call to if other than patient: y Best contact number: [phone] Thank you, Johnny Hdez March 14, 2024 4:14 PM Vivian Fried 03/15/2024 8:20 AM Signed Called and spoke with patient and informed him that he will need to speak with Financial Clearance before I can place him back on the schedule for this procedure. I will need this procedure paid for and cleared by them before we can reschedule. Patient voiced understanding. Vivian Fried Allergies As of Date: 03/15/2024 Noted Allergy Reaction PENICILLINS 08/27/2014 16 - Unknown Date Reviewed: 02/24/2024 Reviewed by: Bertha Schumacher APRN.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 - Fully Assessed Reason for Visit: Patient Question [7238] Prescriptions as of 03/15/2024 - cyclobenzaprine (FLEXERIL) 10 mg tablet Take 1 tablet by mouth three times a day as needed. - mometasone-formoterol (DULERA) 200-5 mcg/actuation inhaler Inhale 2 Puffs as instructed two times a day. - predniSONE (DELTASONE) 20 mg tablet Take 2 tablets by mouth once daily. - nicotine polacrilex (NICORETTE) 4 mg gum Take 1 Each by mouth as needed. - tiotropium bromide (SPIRIVA RESPIMAT) 2.5 mcg/actuation inhaler Inhale 2 Puffs as instructed once daily. - albuterol HFA (PROVENTIL HFA, VENTOLIN HFA) 90 mcg/actuation inhaler Inhale 2 Puffs as instructed every 4 hours as needed for wheezing/shortness of breath. - albuterol (PROVENTIL) 2.5 mg /3 mL (0.083 %) nebulizer solution Use 3 mL via nebulizer every 4 hours as needed for wheezing/shortness of breath. Inhale over 5-15 minutes - thiamine (VITAMIN B1) 100 mg tablet Take 1 tablet by mouth three times a day. - atorvastatin (LIPITOR) 80 mg tablet Take 80 mg by mouth once daily. - montelukast (SINGULAIR) 10 mg tablet Take 1 tablet by mouth daily at bedtime. - budesonide (PULMICORT) 0.5 mg/2 mL nebulizer solution Use 2 mL via nebulizer two times a day. - lisinopril 2.5 mg tablet Take 2.5 mg by mouth once daily. - clopidogrel (PLAVIX) 75 mg tablet Take 75 mg by mouth once daily. - OMEPRAZOLE (PRILOSEC ORAL) Take 10 mg by mouth as needed. Unsure of dose - MEDICATION, NON-DATABASE OTC cold med Problem List As Of Date 03/15/2024 Noted Resolved Chronic bronchitis (HCC) [J42] 08/20/2023 Wheezing [R06.2] 08/20/2023 Chronic obstructive pulmonary disease with acut*08/20/2023 12/01/2023 Nicotine use disorder [F17.200] 08/20/2023 Morbid obesity (HCC) [E66.01] 08/20/2023 Lung nodules [R91.8] 11/11/2023 Severe persistent asthma [J45.50] 11/11/2023 Hyponatremia [E87.1] 12/01/2023 Lumbar stenosis [M48.061] 12/01/2023 Elevated troponin [R79.89] 12/01/2023 COPD with acute exacerbation (HCC) [J44.1] 12/01/2023 ETOH abuse [F10.10] 12/01/2023 Obesity, Class III, BMI >= 40 [E66.01] 12/01/2023 Encounter Status:Closed by CHANDA ARREGUIN on 03/15/24 [facility] DIMITRIOS BILLSGILBERTO Dumont ([id number]) 1960 M Date Time Provider Department 03/13/24 YASHIRA GONSALES AGSPINE3 During your visit today, we recorded the following information about you: Chanda Arreguin 03/13/2024 2:55 PM Signed Patient Last Name SANJU Patient First Name ELIS Dumont Date of 1960 Clinical Clearance / Financial Clearance Status Pending Clinical Clearance Notifications are supported by our rocael policy and used when an immediate payer source is not available. The CCN process can allow cases to be completed while still working to obtain payer?s authorization due to urgency or medical necessity. This process should not preclude us from completing the steps needed to secure authorization such us P2P and appeal as this will still allow us to receive the appropriate reimbursement. Denial Overview Denial Type Payer Clinical Guidelines Not Met Denial Rationale Based on the information submitted by your provider for treating your low back pain, the required criteria that is not met which includes documentation of signs and symptoms e.g. numbness, tingling consistent with radiculopathy i.e. pinched nerve. Therefore, the request is denied. Date of Service 03/16/2024 Is Peer to Peer Available? (Instructions below) Yes Peer to Peer Deadline until 03/22/2024 Appeal Deadline (Instructions below) 180 days from the denial date 03/08/2024 Insurance Case Information Insurance Name MM Patient's Insurance Case# [id number] Ordering Provider Bertha Schumacher Approved Services N/A Denied Services 31847 - NJX DX/THER SBST INTRLMNR LMBR/SAC W/IMG GDN Alternative Recommendation N/A *Service which can be approved in place of denied service. Clinical Documentation Provided Office Visit 11/11/2023, 09/23/2023 [facility] 02/24/2024, 12/22/2023, 11/25/2023, 10/29/2023 Procedure 12/16/2023, 10/28/2023 CT CHEST WO IVCON 12/29/2023 XR CHEST 1V FRONTAL 12/01/2023 MRI LUMBAR SPINE WO IVCON 11/19/2023 CT CHEST WO IVCON 09/02/2023 Peer to Peer Instructions Peer to Peer , options: 1-2 Does Peer to Peer need to be scheduled? Yes Who can complete the Peer to Peer? Dr, PA, ENVIRONMENTAL COMPLIANCE TECHNICIAN, LN Additional Peer to Peer Instructions You can call for the peer to peer at the date and time of your convenience Appeal Instructions Appeal Address [address] [address], [facility], [address] Appeal Fax# No fax# available Required Form(s) Yes, Please see attached or can be found at [email or web address] ([employer]). Additional Appeal Instructions Send it attention to: Appeals department. Include: coversheet with patient's and case information, a formal appeal letter and attach any pertinent supporting clinical documentation. Also, insurance requires a formal appeal form filled out if you would like to submit a written appeal. Facility Information Location [facility] [id number] Tax ID# [id number] Vivian Fried 03/14/2024 8:34 AM Signed Please advise on how you would like to proceed. Vivian Franco 03/14/2024 3:59 PM Signed I have attempted to contact this patient by phone, Left brief message on cell [employer] informing this patient of this denial and that I was cancelling his appointment. I have asked him to please give us a call back to get scheduled for an in office visit for an exam per message from Yashira on 03/10/24. Vivian Franco 03/15/2024 10:49 AM Signed Patient has elected to pay for this out of pocket. Vivian Franco 03/16/2024 8:50 AM Signed Just placed the appeal in the mail. Vivian Fried Allergies As of Date: 03/13/2024 Noted Allergy Reaction PENICILLINS 08/27/2014 16 - Unknown Date Reviewed: 02/24/2024 Reviewed by: Bertha Schumacher APRN.EXPORT 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 - Fully Assessed Reason for Visit: Insurance Denial [Other] Prescriptions as of 03/16/2024 - cyclobenzaprine (FLEXERIL) 10 mg tablet Take 1 tablet by mouth three times a day as needed. - mometasone-formoterol (DULERA) 200-5 mcg/actuation inhaler Inhale 2 Puffs as instructed two times a day. - predniSONE (DELTASONE) 20 mg tablet Take 2 tablets by mouth once daily. - nicotine polacrilex (NICORETTE) 4 mg gum Take 1 Each by mouth as needed. - tiotropium bromide (SPIRIVA RESPIMAT) 2.5 mcg/actuation inhaler Inhale 2 Puffs as instructed once daily. - albuterol HFA (PROVENTIL HFA, VENTOLIN HFA) 90 mcg/actuation inhaler Inhale 2 Puffs as instructed every 4 hours as needed for wheezing/shortness of breath. - albuterol (PROVENTIL) 2.5 mg /3 mL (0.083 %) nebulizer solution Use 3 mL via nebulizer every 4 hours as needed for wheezing/shortness of breath. Inhale over 5-15 minutes - thiamine (VITAMI (more content not included)... Normal [facility] CNCOon 03-01-2024 CNCO Letter Text Normal [facility] CNCOon 02-25-2024 CNCO Letter Text Normal [facility] CNPNon 02-25-2024 CNPN Telephone (AGSPINE3) ELIS BILLS ([id number]) 1960 Date Time Provider Department 02/25/24 EVERTON DECKER AGSPINE3 During your visit today, we recorded the following information about you: Diane Lagos 02/25/2024 11:09 AM Signed The Anticoag Management letter has been sent to the PCP, Pilar Steele DO via facsimile. [phone] Adi Meyer PSS 02/29/2024 3:44 PM Signed Medical consent to stop taking Plavix for [address] Pilar Steele on 02/28/2024. The consent form was received on 02/29/2024 and is scanned into the chart. GOOD UNTIL 08/30/20[address] Adi Mascorro Dulz[address] Dr. Britton Burgos [facility] P: [id number] / F: [phone] / __ Diane Lagos 03/01/2024 11:05 AM Signed Called and LVM to schedule injection. Diane Lagos Vivian Fried 03/01/2024 11:55 AM Signed Patient has been scheduled with dr. Decker on 03/16/24. Vivian Fried Allergies As of Date: 02/25/2024 Noted Allergy Reaction PENICILLINS 08/27/2014 16 - Unknown Date Reviewed: 02/24/2024 Reviewed by: Bertha Schumacher APRN.EXPORT 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 - Fully Assessed Reason for Visit: anticoagulation letter [Other] Prescriptions as of 03/01/2024 - cyclobenzaprine (FLEXERIL) 10 mg tablet Take 1 tablet by mouth three times a day as needed. - mometasone-formoterol (DULERA) 200-5 mcg/actuation inhaler Inhale 2 Puffs as instructed two times a day. - predniSONE (DELTASONE) 20 mg tablet Take 2 tablets by mouth once daily. - nicotine polacrilex (NICORETTE) 4 mg gum Take 1 Each by mouth as needed. - tiotropium bromide (SPIRIVA RESPIMAT) 2.5 mcg/actuation inhaler Inhale 2 Puffs as instructed once daily. - albuterol HFA (PROVENTIL HFA, VENTOLIN HFA) 90 mcg/actuation inhaler Inhale 2 Puffs as instructed every 4 hours as needed for wheezing/shortness of breath. - albuterol (PROVENTIL) 2.5 mg /3 mL (0.083 %) nebulizer solution Use 3 mL via nebulizer every 4 hours as needed for wheezing/shortness of breath. Inhale over 5-15 minutes - thiamine (VITAMIN B1) 100 mg tablet Take 1 tablet by mouth three times a day. - atorvastatin (LIPITOR) 80 mg tablet Take 80 mg by mouth once daily. - montelukast (SINGULAIR) 10 mg tablet Take 1 tablet by mouth daily at bedtime. - budesonide (PULMICORT) 0.5 mg/2 mL nebulizer solution Use 2 mL via nebulizer two times a day. - lisinopril 2.5 mg tablet Take 2.5 mg by mouth once daily. - clopidogrel (PLAVIX) 75 mg tablet Take 75 mg by mouth once daily. - OMEPRAZOLE (PRILOSEC ORAL) Take 10 mg by mouth as needed. Unsure of dose - MEDICATION, NON-DATABASE OTC cold med Problem List As Of Date 02/25/2024 Noted Resolved Chronic bronchitis (HCC) [J42] 08/20/2023 Wheezing [R06.2] 08/20/2023 Chronic obstructive pulmonary disease with acut*08/20/2023 12/01/2023 Nicotine use disorder [F17.200] 08/20/2023 Morbid obesity (HCC) [E66.01] 08/20/2023 Lung nodules [R91.8] 11/11/2023 Severe persistent asthma [J45.50] 11/11/2023 Hyponatremia [E87.1] 12/01/2023 Lumbar stenosis [M48.061] 12/01/2023 Elevated troponin [R79.89] 12/01/2023 COPD with acute exacerbation (HCC) [J44.1] 12/01/2023 ETOH abuse [F10.10] 12/01/2023 Obesity, Class III, BMI >= 40 [E66.01] 12/01/2023 Encounter Status:Closed by DIANE LAGOS on 02/25/24 [facility] CNPN Telephone (AGSPHWG) ELIS BILLS ([id number]) 1960 Date Time Provider Department 02/25/24 BERTHA SCHUMACHER AGSPHWG During your visit today, we recorded the following information about you: Rose Leal 02/25/2024 8:17 AM Signed Outbound Call to patient to schedule Injection - Epidural Steroid Injection - Interlaminar Approach (ILESI) under fluoroscopic guidance NONE at L4-5 (Currently Taking: Plavix needs 7 day hold) - Reached [facility] [phone] (cell/home) JASS Block Julie 03/03/2024 7:44 AM Signed Patient is scheduled for procedure and follow up JASS Block Allergies As of Date: 02/25/2024 Noted Allergy Reaction PENICILLINS 08/27/2014 16 - Unknown Date Reviewed: 02/24/2024 Reviewed by: Bertha Schumacher APRN.EXPORT 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 - Fully Assessed Reason for Visit: Appointment [186] Prescriptions as of 03/03/2024 - cyclobenzaprine (FLEXERIL) 10 mg tablet Take 1 tablet by mouth three times a day as needed. - mometasone-formoterol (DULERA) 200-5 mcg/actuation inhaler Inhale 2 Puffs as instructed two times a day. - predniSONE (DELTASONE) 20 mg tablet Take 2 tablets by mouth once daily. - nicotine polacrilex (NICORETTE) 4 mg gum Take 1 Each by mouth as needed. - tiotropium bromide (SPIRIVA RESPIMAT) 2.5 mcg/actuation inhaler Inhale 2 Puffs as instructed once daily. - albuterol HFA (PROVENTIL HFA, VENTOLIN HFA) 90 mcg/actuation inhaler Inhale 2 Puffs as instructed every 4 hours as needed for wheezing/shortness of breath. - albuterol (PROVENTIL) 2.5 mg /3 mL (0.083 %) nebulizer solution Use 3 mL via nebulizer every 4 hours as needed for wheezing/shortness of breath. Inhale over 5-15 minutes - thiamine (VITAMIN B1) 100 mg tablet Take 1 tablet by mouth three times a day. - atorvastatin (LIPITOR) 80 mg tablet Take 80 mg by mouth once daily. - montelukast (SINGULAIR) 10 mg tablet Take 1 tablet by mouth daily at bedtime. - budesonide (PULMICORT) 0.5 mg/2 mL nebulizer solution Use 2 mL via nebulizer two times a day. - lisinopril 2.5 mg tablet Take 2.5 mg by mouth once daily. - clopidogrel (PLAVIX) 75 mg tablet Take 75 mg by mouth once daily. - OMEPRAZOLE (PRILOSEC ORAL) Take 10 mg by mouth as needed. Unsure of dose - MEDICATION, NON-DATABASE OTC cold med Problem List As Of Date 02/25/2024 Noted Resolved Chronic bronchitis (HCC) [J42] 08/20/2023 Wheezing [R06.2] 08/20/2023 Chronic obstructive pulmonary disease with acut*08/20/2023 12/01/2023 Nicotine use disorder [F17.200] 08/20/2023 Morbid obesity (HCC) [E66.01] 08/20/2023 Lung nodules [R91.8] 11/11/2023 Severe persistent asthma [J45.50] 11/11/2023 Hyponatremia [E87.1] 12/01/2023 Lumbar stenosis [M48.061] 12/01/2023 Elevated troponin [R79.89] 12/01/2023 COPD with acute exacerbation (HCC) [J44.1] 12/01/2023 ETOH abuse [F10.10] 12/01/2023 Obesity, Class III, BMI >= 40 [E66.01] 12/01/2023 Encounter Status:Closed by ROSE LEAL on 02/25/24 [facility] CNPN Telephone (AGSPINE3) ELIS BILLS ([id number]) 1960 Date Time Provider Department 02/25/24 EVERTON DECKER AGSPINE3 During your visit today, we recorded the following information about you: Diane Lagos 02/25/2024 11:08 AM Signed Procedure(s) being scheduled: 1.Are you diabetic No 2. Are you on any blood thinners? Yes. Please list the current medications being prescribed plavix. If yes, does it require a hold? Yes If yes, was approval letter sent? Yes 3. Are you taking any aspirin? No 4. Are you currently taking any antibiotics? No If yes, is it prophylactic or for treatment of an infection? 5. Do you have any allergies to latex? No 6. Do you have any allergies to seafood or shellfish? No 7. Do you have any allergies to x-ray dye? No 8. Did the physician instruct you to take any medication prior to your procedure? No 9. Does this procedure require a charter coach driver? Yes If yes, has patient been notified that a charter coach driver is needed and must be present at check in? 10. Were the pre-procedure instructions explained and provided to the patient? Yes 11. Do you have a pacemaker? No 12. Do you have an internal stimulator of any kind? No If yes, please bring the remote with you to your procedure visit. 13. Have you received the COVID-19 Vaccine? Yes. If yes, date(s) received: (Patient should not receive a procedure including steroids 14 days prior to their first dose of the COVID vaccine. They should not receive any procedure containing steroids in the time frame between their 1st and 2nd doses of the COVID vaccine. They should not receive a procedure containing steroids 14 days after their 2nd dose of the COVID vaccine.) Diane Lagos Allergies As of Date: 02/25/2024 Noted Allergy Reaction PENICILLINS 08/27/2014 16 - Unknown Date Reviewed: 02/24/2024 Reviewed by: Bertha Schumacher APRN.EXPORT 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 - Fully Assessed Reason for Visit: Injections [199] Cmt: questions Prescriptions as of 02/25/2024 - cyclobenzaprine (FLEXERIL) 10 mg tablet Take 1 tablet by mouth three times a day as needed. - mometasone-formoterol (DULERA) 200-5 mcg/actuation inhaler Inhale 2 Puffs as instructed two times a day. - predniSONE (DELTASONE) 20 mg tablet Take 2 tablets by mouth once daily. - nicotine polacrilex (NICORETTE) 4 mg gum Take 1 Each by mouth as needed. - tiotropium bromide (SPIRIVA RESPIMAT) 2.5 mcg/actuation inhaler Inhale 2 Puffs as instructed once daily. - albuterol HFA (PROVENTIL HFA, VENTOLIN HFA) 90 mcg/actuation inhaler Inhale 2 Puffs as instructed every 4 hours as needed for wheezing/shortness of breath. - albuterol (PROVENTIL) 2.5 mg /3 mL (0.083 %) nebulizer solution Use 3 mL via nebulizer every 4 hours as needed for wheezing/shortness of breath. Inhale over 5-15 minutes - thiamine (VITAMIN B1) 100 mg tablet Take 1 tablet by mouth three times a day. - atorvastatin (LIPITOR) 80 mg tablet Take 80 mg by mouth once daily. - montelukast (SINGULAIR) 10 mg tablet Take 1 tablet by mouth daily at bedtime. - budesonide (PULMICORT) 0.5 mg/2 mL nebulizer solution Use 2 mL via nebulizer two times a day. - lisinopril 2.5 mg tablet Take 2.5 mg by mouth once daily. - clopidogrel (PLAVIX) 75 mg tablet Take 75 mg by mouth once daily. - OMEPRAZOLE (PRILOSEC ORAL) Take 10 mg by mouth as needed. Unsure of dose - MEDICATION, NON-DATABASE OTC cold med Problem List As Of Date 02/25/2024 Noted Resolved Chronic bronchitis (HCC) [J42] 08/20/2023 Wheezing [R06.2] 08/20/2023 Chronic obstructive pulmonary disease with acut*08/20/2023 12/01/2023 Nicotine use disorder [F17.200] 08/20/2023 Morbid obesity (HCC) [E66.01] 08/20/2023 Lung nodules [R91.8] 11/11/2023 Severe persistent asthma [J45.50] 11/11/2023 Hyponatremia [E87.1] 12/01/2023 Lumbar stenosis [M48.061] 12/01/2023 Elevated troponin [R79.89] 12/01/2023 COPD with acute exacerbation (HCC) [J44.1] 12/01/2023 ETOH abuse [F10.10] 12/01/2023 Obesity, Class III, BMI >= 40 [E66.01] 12/01/2023 Encounter Status:Closed by DIANE LAGOS on 02/25/24 [facility] Donna 01-17-2024 CNPN Telephone (PUMBHT) ELIS BILLS ([id number]) 1960 Chip Date Time Provider Department 01/17/24 SHELTON AGUILERA During your visit today, we recorded the following information about you: Lindsey Delgado RN 01/17/2024 10:03 AM Signed TIMO: 11/11/2023 Future OV: 02/10/2024 Call transferred to [place] RN from [address] center. Mehreen, patient's called. Patient name and verified. All information about patient gathered from , patient not present at time of phone call stays patient was hospitalized November 30 for SOB episode. Says this latest flare up started approximately on WednesdayJanuary 07 with a cough and SOB. Says pt. lost voice from coughing so much but was unable to say if it is productive or not. states 's SOB is similar to past SOB episodes. Says he hasn't gotten better, and they have not gotten away from doing the albuterol nebulizing every 4 hours. had trouble describing the relief the albuterol nebulizing treatments give. After some rephrasing says yes he is able to catch his breath after doing nebulizing treatment. Per , he is not using albuterol rescue inhaler, says she doesn't need do and doesn't want him to. She described a situation with her son when he was young where she said she was told using the rescue inhaler too often will decrease effectiveness. Reiterated to albuterol inhaler prescription instructions and that it could help relieve wheezing/SOB. states he is using pulmicort two times a day as prescribed. Last time patient nebulized albuterol was 0600 this morning but states sounded SOB on the phone when he called her around 0800. Thinks is just used to these episodes, and she doesn't want him to let it get to a worse level. He is at work at the moment. She is worried about him and she states that he has no idea she is calling about him. She would like to be called back at mobile number listed in patient chart. denies patient having fever, chills, night sweats, headache, or sore throat. Advised patient be seen at urgent care or ED if symptoms worsen or change. Instructed on signs and symptoms of worsening SOB. is agreeable and verbalized understanding. Lindsey Delgado RN 01/24/2024 11:21 AM Addendum TIMO: 11/11/2023 NOV: 02/10/2024 calling in, patient is at work so all info obtained from her. Patient name and verified. Says took last dose of prednisone today. doesn't feel like it's improved on prednisone and she states patient feels the same. States that symptoms have not worsened but that she sees no improvement. When asked if patient was currently SOB says patient is at work currently but she assumes he is still having issues today. States he took albuterol inhaler in car with her on Wednesday and had a hard time in the car. He took albuterol inhaler and patient said they felt a lot better. Four five hours later needed it again. When asked if this was the last time patient had used his rescue inhaler said he's using albuterol nebulizer every 4 hours pretty much. When asked if patient gets good relief from these treatments she said not all of the time but when questioned further she says that she couldn't tell you if it gives him good relief. Says that from what she's seen if it doesn't give good relief he will do another treatment. She denies any new or worsening symptoms from , states everything is just the same as before prednisone course. wanting further advice. Thinks he might have an infection. Miriam Waterman LPN 01/25/2024 9:55 AM Signed Patient called message given from MD copy of message sent to patient My Chart per request Allergies As of Date: 01/17/2024 Noted Allergy Reaction PENICILLINS 08/27/2014 16 - Unknown Date Reviewed: 12/21/2023 Reviewed by: Yashira Gonsales APRN.EXPORT 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 - Fully Assessed Reason for Visit: Illness [6933] Cmt: [place] RN covering urgent pulm sypmtom calls Order(s):predniSONE (DELTASONE) 20 mg tabletTake 2 tablets by mouth once daily.Disp: 14 tabletRfl: 0 Prescriptions as of 01/25/2024 - mometasone-formoterol (DULERA) 200-5 mcg/actuation inhaler Inhale 2 Puffs as instructed two times a day. - predniSONE (DELTASONE) 20 mg tablet Take 2 tablets by mouth once daily. - nicotine polacrilex (NICORETTE) 4 mg gum Take 1 Each by mouth as needed. - tiotropium bromide (SPIRIVA RESPIMAT) 2.5 mcg/actuation inhaler Inhale 2 Puffs as instructed once daily. - albuterol HFA (PROVENTIL HFA, VENTOLIN HFA) 90 mcg/actuation inhaler Inhale 2 Puffs as instructed every 4 hours as needed for wheezing/shortness of breath. - albuterol (PROVENTIL) 2.5 mg /3 mL (0.083 %) nebulizer solution Use 3 mL via nebulizer every 4 hours as needed for wheezing/shortness of breath (more content not included)... Normal [facility] 01-03-2024 [facility] Telephone ([facility]) ELIS BILLS ([id number]) 1960 M Date Time Provider Department 01/03/24 ALEN MAYORGA [facility] During your visit today, we recorded the following information about you: Alen Mayorga MD 01/03/2024 3:[address] chest shows stable small/tiny nodules. Further decision for continued surveillance to be made by Dr. Womack at subsequent office visits. CT shows dilated pulmonary artery but recent Echo shows normal RV size and function. Brooke Her RN 01/03/2024 3:30 PM Signed Attempted to contact patient via telephone. Patient telephone extreme static and was unable to speak with patient. Sent [employer] message regarding message below. Alen Mayorga MD15 minutes ago (3:05 PM) CT chest shows stable small/tiny nodules. Further decision for continued surveillance to be made by Dr. Womack at subsequent office visits. CT shows dilated pulmonary artery but recent Echo shows normal RV size and function. Brooke Her RN Allergies As of Date: 01/03/2024 Noted Allergy Reaction PENICILLINS 08/27/2014 16 - Unknown Date Reviewed: 12/21/2023 Reviewed by: Yashira Gonsales APRN.EXPORT 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 - Fully Assessed Reason for Visit: Results [95] Prescriptions as of 01/03/2024 - mometasone-formoterol (DULERA) 200-5 mcg/actuation inhaler Inhale 2 Puffs as instructed two times a day. - albuterol (PROVENTIL) 2.5 mg /3 mL (0.083 %) nebulizer solution Use 3 mL via nebulizer every 4 hours as needed for wheezing/shortness of breath. Inhale over 5-15 minutes - thiamine (VITAMIN B1) 100 mg tablet Take 1 tablet by mouth three times a day. - tiotropium bromide (SPIRIVA RESPIMAT) 2.5 mcg/actuation inhaler Inhale 2 Puffs as instructed once daily. - atorvastatin (LIPITOR) 80 mg tablet Take 80 mg by mouth once daily. - albuterol HFA (PROVENTIL HFA, VENTOLIN HFA) 90 mcg/actuation inhaler Inhale 2 Puffs as instructed every 4 hours as needed for wheezing/shortness of breath. - montelukast (SINGULAIR) 10 mg tablet Take 1 tablet by mouth daily at bedtime. - nicotine polacrilex (NICORETTE) 4 mg gum Take 1 Each by mouth as needed. - budesonide (PULMICORT) 0.5 mg/2 mL nebulizer solution Use 2 mL via nebulizer two times a day. - lisinopril 2.5 mg tablet Take 2.5 mg by mouth once daily. - clopidogrel (PLAVIX) 75 mg tablet Take 75 mg by mouth once daily. - OMEPRAZOLE (PRILOSEC ORAL) Take 10 mg by mouth as needed. Unsure of dose - MEDICATION, NON-DATABASE OTC cold med Problem List As Of Date 01/03/2024 Noted Resolved Chronic bronchitis (HCC) [J42] 08/20/2023 Wheezing [R06.2] 08/20/2023 Chronic obstructive pulmonary disease with acut*08/20/2023 12/01/2023 Nicotine use disorder [F17.200] 08/20/2023 Morbid obesity (HCC) [E66.01] 08/20/2023 Lung nodules [R91.8] 11/11/2023 Severe persistent asthma [J45.50] 11/11/2023 Hyponatremia [E87.1] 12/01/2023 Lumbar stenosis [M48.061] 12/01/2023 Elevated troponin [R79.89] 12/01/2023 COPD with acute exacerbation (HCC) [J44.1] 12/01/2023 ETOH abuse [F10.10] 12/01/2023 Obesity, Class III, BMI >= 40 [E66.01] 12/01/2023 Encounter Status:Closed by ALEN MAYORGA on 01/03/[address] [facility] [address] CHEST WO IVCONon 12-29-19 CT CHEST WO IVCON * * *Final Report* * * DATE OF EXAM: Dec 29 2023 11:14AM [facility] 0541 - CT CHEST WO IVCON / PROCEDURE REASON: Lung nodules * * * * Physician Interpretation * * * * EXAMINATION: CHEST CT WITHOUT CONTRAST CLINICAL HISTORY: Lung nodules, follow-up Technique: Spiral CT acquisition of the chest from the thoracic inlet to the upper abdomen without contrast. MQ: [id number] CT Radiation dose: Integrated Dose-length product (DLP) for this visit = 499.23 mGy*cm CT Dose Reduction Employed: Iterative recon and mAs-kVp adjusted using patient size-age Comparison: 09/02/2023 RESULT: Limitations: None. Lines, tubes, and devices: None. Lung parenchyma and airways: Multiple scattered tiny 2-3 mm nodules/densities, upper lung predominant, stable. Pleural space: No pleural effusion. No pleural thickening. Lower neck, lymph nodes, and mediastinum: The imaged thyroid gland is normal. No lymphadenopathy in the supraclavicular, axillary, mediastinal, or hilar regions. Heart, pericardium, and thoracic vessels: Dilated main pulmonary artery 3.3 cm Borderline normal caliber ascending aorta. Normal course thoracic aorta. The cardiac chambers are normal in size. Coronary artery atherosclerotic calcifications are noted, although the study is not optimized for coronary assessment. No pericardial effusion or thickening. Bones and soft tissues: Mild L1 compression deformity, stable. Bilateral hip arthroplasty. 11 mm cystic density just deep to the skin midline upper back, possible sebaceous cyst, stable Upper abdomen: No abnormality in the imaged upper abdomen. Localizer images: No additional findings. IMPRESSION: Stable multiple scattered tiny 2-3 mm nodules/densities, as described. Consider infectious/inflammato ry etiology; other differentials could include but not limited to etiologies such as respiratory bronchiolitis, hypersensitivity pneumonitis. Correlate clinically Dilated main pulmonary artery, can be seen with pulmonary arterial hypertension. Coronary artery calcifications. Incidental Finding: Follow-up Acuity: Incidental Finding: Solid: <6 mm (solitary or multiple) Routing Code: N/A Recommendation: No imaging follow-up is recommended Time Frame: N/A Comments: If there are risk factors for lung malignancy, a follow-up chest CT exam could be obtained in 12 months --END OF FINDING-- Package Winder: YAIR Transcribe Date/Time: Jan 03 2024 2:32P Dictated by : FRANCES MILIAN MD This examination was interpreted and the report reviewed and electronically signed by: FRANCES MILIAN MD on Jan 03 2024 2:47PM EST [id number] ACTIONABLE Invalid Interpretation Code [facility] ECHOon 12-29-2023 CONCLUSIONS: - Technically difficult exam due to body habitus. - Exam indication: Shortness of Breath - The left ventricle is normal in size. There is moderate left ventricular hypertrophy. Left ventricular systolic function is normal. EF = 60 5% (2D 4-ch.) Indeterminate left ventricular diastolic dysfunction. - The right ventricle is normal in size. Right ventricular systolic function is normal. - The left atrial cavity is mildly dilated. - The right atrial cavity is dilated. - There are no significant valvular abnormalities. - The visualized aorta is borderline dilated with a maximal dimension of 4.0 cm. - The patient has not had a prior CC echocardiographic exam for comparison. * * * Final * * * [facility] Echocardiography Report: Transthoracic Echo [facility] Date of service: 12/29/2023 10:25:10 AM Ordering physician: SHELTON AGUILERA Indication: Shortness of Breath Technologist: Hannah Elizondo RDCS Interpreting physician: Al Dexter MD PATIENT: Name: MR. ELIS BILLS : 1960 Age: 63 years Gender: M Primary rhythm: sinus. Height: 170.00 cm BSA: 2.44 m Weight: 126.00 kg BMI: 43.6 kg/m Heart rate 66 bpm Blood pressure 170/94 mmHg Technically difficult exam due to body habitus. Color Doppler was utilized to interrogate the cardiac valves assessed and spectral Doppler was utilized to determine the flow velocities and pressure gradients reported in this exam. MEASUREMENTS: Value Indexed Normal Max aortic dimension 4.0 cm Ao < 3.8 Left atrium diameter 4.9 cm (2D) Left atrial volume 93 ml (biplane A-L) 38 ml/m Sami <= 34 LV ID (diastole) 4.9 cm (2D) 2.00 cm/m LV ID (systole) 3.8 cm (2D) 1.55 cm/m IVS, leaflet tips 1.7 cm (2D) Posterior wall thickness 1.6 cm (2D) Left ventricular mass 367 g (2D) 150 g/m LV stroke volume 70 ml (2D 4-ch.) LV end diastolic volume 117 ml (2D 4-ch.) 48.0 ml/m 34<=EDVi<75 LV end systolic volume 47 ml (2D 4-ch.) 19.2 ml/m Ejection Fraction 60 % (2D 4-ch.) EF > 52 FINDINGS: LEFT VENTRICLE The left ventricle is normal in size. There is moderate left ventricular hypertrophy. Left ventricular systolic function is normal. Indeterminate left ventricular diastolic dysfunction. Mitral annular lateral E/e': 13.6. Mitral annular septal E/e': 11.4. Wall Motion: All scored segments are normal. RIGHT VENTRICLE The right ventricle is normal in size. Right ventricular systolic function is normal. Tricuspid annular displacement is 1.9 cm. Estimated right ventricular systolic pressure is not reported due to an insufficient tricuspid regurgitation signal. Estimated right atrial pressure is 8 mmHg based on IVC assessment. LEFT ATRIUM The left atrial cavity is mildly dilated. RIGHT ATRIUM The right atrial cavity is dilated. Inferior Vena Cava: The inferior vena cava appears dilated measuring 3.0 cm. The vessel decreases greater than 50 percent with inspiration. MITRAL VALVE The mitral valve leaflets are structurally normal. There is mild mitral annular calcification observed anterior and posterior. There is trace mitral valve regurgitation. The peak mitral E/A ratio is 1.63. The average mitral E/e' ratio is 12.5. TRICUSPID VALVE The tricuspid valve leaflets are structurally normal. There is trace tricuspid valve regurgitation. AORTIC VALVE The aortic valve cusps are structurally normal. There is no aortic valve regurgitation. The peak gradient is 6 mmHg (peak velocity = 127.0 cm/s). The mean gradient is 3 mmHg. The aortic VTI is 27.8 cm. The mean velocity in the aortic valve is 82.8 cm/s. The dimensionless valve index is 0.89. PULMONIC VALVE The pulmonic valve cusps are structurally normal. There is trace pulmonic valve regurgitation. AORTA The visualized aorta is borderline dilated. Measurements - Mid ascending aorta 4.0 cm. [facility] Echocardiography Echocardiography Report: Transthoracic Echo [facility] Date of service: 12/29/2023 10:25:10 AM Ordering physician: SHELTON AGUILERA Indication: Shortness of Breath Technologist: Hannah Elizondo [facility] Interpreting physician: Al Dexter MD PATIENT: Name: MR. ELIS BILLS : 1960 Age: 63 years Gender: M Primary rhythm: sinus. Height: 170.00 cm BSA: 2.44 m Weight: 126.00 kg BMI: 43.6 kg/m Heart rate 66 bpm Blood pressure 170/94 mmHg Technically difficult exam due to body habitus. Color Doppler was utilized to interrogate the cardiac valves assessed and spectral Doppler was utilized to determine the flow velocities and pressure gradients reported in this exam. MEASUREMENTS: Value Indexed Normal Max aortic dimension 4.0 cm Ao < 3.8 Left atrium diameter 4.9 cm (2D) Left atrial volume 93 ml (biplane A-L) 38 ml/m Sami <= 34 LV ID (diastole) 4.9 cm (2D) 2.00 cm/m LV ID (systole) 3.8 cm (2D) 1.55 cm/m IVS, leaflet tips 1.7 cm (2D) Posterior wall thickness 1.6 cm (2D) Left ventricular mass 367 g (2D) 150 g/m LV stroke volume 70 ml (2D 4-ch.) LV end diastolic volume 117 ml (2D 4-ch.) 48.0 ml/m 34<=EDVi<75 LV end systolic volume 47 ml (2D 4-ch.) 19.2 ml/m Ejection Fraction 60 % (2D 4-ch.) EF > 52 FINDINGS: LEFT VENTRICLE The left ventricle is normal in size. There is moderate left ventricular hypertrophy. Left ventricular systolic function is normal. Indeterminate left ventricular diastolic dysfunction. Mitral annular lateral E/e': 13.6. Mitral annular septal E/e': 11.4. Wall Motion: All scored segments are normal. RIGHT VENTRICLE The right ventricle is normal in size. Right ventricular systolic function is normal. Tricuspid annular displacement is 1.9 cm. Estimated right ventricular systolic pressure is not reported due to an insufficient tricuspid regurgitation signal. Estimated right atrial pressure is 8 mmHg based on IVC assessment. LEFT ATRIUM The left atrial cavity is mildly dilated. RIGHT ATRIUM The right atrial cavity is dilated. Inferior Vena Cava: The inferior vena cava appears dilated measuring 3.0 cm. The vessel decreases greater than 50 percent with inspiration. MITRAL VALVE The mitral valve leaflets are structurally normal. There is mild mitral annular calcification observed anterior and posterior. There is trace mitral valve regurgitation. The peak mitral E/A ratio is 1.63. The average mitral E/e' ratio is 12.5. TRICUSPID VALVE The tricuspid valve leaflets are structurally normal. There is trace tricuspid valve regurgitation. AORTIC VALVE The aortic valve cusps are structurally normal. There is no aortic valve regurgitation. The peak gradient is 6 mmHg (peak velocity = 127.0 cm/s). The mean gradient is 3 mmHg. The aortic VTI is 27.8 cm. The mean velocity in the aortic valve is 82.8 cm/s. The dimensionless valve index is 0.89. PULMONIC VALVE The pulmonic valve cusps are structurally normal. There is trace pulmonic valve regurgitation. AORTA The visualized aorta is borderline dilated. Measurements - Mid ascending aorta 4.0 cm. CONCLUSIONS: - Technically difficult exam due to body habitus. - Exam indication: Shortness of Breath - The left ventricle is normal in size. There is moderate left ventricular hypertrophy. Left ventricular systolic function is normal. EF = 60 5% (2D 4-ch.) Indeterminate left ventricular diastolic dysfunction. - The right ventricle is normal in size. Right ventricular systolic function is normal. - The left atrial cavity is mildly dilated. - The right atrial cavity is dilated. - There are no significant valvular abnormalities. - The visualized aorta is borderline dilated with a maximal dimension of 4.0 cm. - The patient has not had a prior CC echocardiographic exam for comparison. * * * Final * * * CC [facility] [facility] : [id number] [facility] CNPNon 12-17-2023 [facility] Telephone (AGSPHWG) ELIS BILLS ([id number]) 1960 M Date Time Provider Department 12/17/23 DHIRAJ HERR AGSPHWG During your visit today, we recorded the following information about you: Greta Guillen LPN 12/17/2023 10:09 AM Signed Cutesy call made to follow-up after procedure. No answer, unable to leave a message. Greta Guillen LPN Allergies As of Date: 12/17/2023 Noted Allergy Reaction PENICILLINS 08/27/2014 16 - Unknown Date Reviewed: 12/16/2023 Reviewed by: Karthik Lopez LPN - Fully Assessed Reason for Visit: Procedure Follow Up [1139] Cmt: MBB Prescriptions as of 12/17/2023 - mometasone-formoterol (DULERA) 200-5 mcg/actuation inhaler Inhale 2 Puffs as instructed two times a day. - albuterol (PROVENTIL) 2.5 mg /3 mL (0.083 %) nebulizer solution Use 3 mL via nebulizer every 4 hours as needed for wheezing/shortness of breath. Inhale over 5-15 minutes - guaiFENesin (MUCINEX) 600 mg 12 hr tablet Take 1 tablet by mouth every 12 hours. - thiamine (VITAMIN B1) 100 mg tablet Take 1 tablet by mouth three times a day. - tiotropium bromide (SPIRIVA RESPIMAT) 2.5 mcg/actuation inhaler Inhale 2 Puffs as instructed once daily. - atorvastatin (LIPITOR) 80 mg tablet Take 80 mg by mouth once daily. - albuterol HFA (PROVENTIL HFA, VENTOLIN HFA) 90 mcg/actuation inhaler Inhale 2 Puffs as instructed every 4 hours as needed for wheezing/shortness of breath. - montelukast (SINGULAIR) 10 mg tablet Take 1 tablet by mouth daily at bedtime. - nicotine polacrilex (NICORETTE) 4 mg gum Take 1 Each by mouth as needed. - budesonide (PULMICORT) 0.5 mg/2 mL nebulizer solution Use 2 mL via nebulizer two times a day. - lisinopril 2.5 mg tablet Take 2.5 mg by mouth once daily. - clopidogrel (PLAVIX) 75 mg tablet Take 75 mg by mouth once daily. - OMEPRAZOLE (PRILOSEC ORAL) Take 10 mg by mouth as needed. Unsure of dose - MEDICATION, NON-DATABASE OTC cold med Problem List As Of Date 12/17/2023 Noted Resolved Chronic bronchitis (HCC) [J42] 08/20/2023 Wheezing [R06.2] 08/20/2023 Chronic obstructive pulmonary disease with acut*08/20/2023 12/01/2023 Nicotine use disorder [F17.200] 08/20/2023 Morbid obesity (HCC) [E66.01] 08/20/2023 Lung nodules [R91.8] 11/11/2023 Severe persistent asthma [J45.50] 11/11/2023 Hyponatremia [E87.1] 12/01/2023 Lumbar stenosis [M48.061] 12/01/2023 Elevated troponin [R79.89] 12/01/2023 COPD with acute exacerbation (HCC) [J44.1] 12/01/2023 ETOH abuse [F10.10] 12/01/2023 Obesity, Class III, BMI >= 40 [E66.01] 12/01/2023 Encounter Status:Closed by GRETA GUILLEN on 12/17/23 [facility] Donna 12-14-2023 NABORN Telephone (AGSPINE3) ELIS BILLS ([id number]) 1960 M Date Time Provider Department 12/14/23 BERTHA SCHUMACHER AGSPINE3 During your visit today, we recorded the following information about you: Chanda Arreguin 12/14/2023 4:10 PM Signed Patient Last Name SANJU Patient First Name ELIS Dumont Date of 1960 Clinical Clearance / Financial Clearance Status Pending Clinical Clearance Notifications are supported by our rocael policy and used when an immediate payer source is not available. The CCN process can allow cases to be completed while still working to obtain payer?s authorization due to urgency or medical necessity. This process should not preclude us from completing the steps needed to secure authorization such us P2P and appeal as this will still allow us to receive the appropriate reimbursement. Denial Overview Denial Type Payer Clinical Guidelines Not Met Denial Rationale Based on the clinical information submitted by your healthcare professional for treatment of your back pain, criteria required and not met includes documentation of at least 80% relief with the first injection and imaging studies physical exam findings have ruled out other causes of spinal pain i.e herniated disc, stenosis, fracture, or tumor. Therefore, in the absence of required referenced criteria, your request is denied. Date of Service 12/31/2023 Is Peer to Peer Available? (Instructions below) Yes Peer to Peer Deadline until 12/20/2023 Appeal Deadline (Instructions below) 180 days from the denial date 12/06/2023 Insurance Case Information Insurance Name MMO Patient's Insurance Case# [id number] Ordering Provider Bertha Schumacher Approved Services N/A Denied Services 31096 - NJX DX/THER AGT PVRT FACET JT LMBR/SAC 1 LEVEL 76249 - NJX DX/THER AGT PVRT FACET JT LMBR/SAC 2ND LEVEL Alternative Recommendation N/A *Service which can be approved in place of denied service. Clinical Documentation Provided [facility] 11/25/2023, 10/29/2023 FOLLOW UP APPOITNMENT WHEN PROVIDED SPECIFIED 12/02/2023 XR CHEST 1V FRONTAL 12/01/2023 MRI LUMBAR SPINE WO IVCON 11/19/2023 Peer to Peer Instructions Peer to Peer , options: 1-2 Does Peer to Peer need to be scheduled? Yes Who can complete the Peer to Peer? Dr, PA, ENVIRONMENTAL COMPLIANCE TECHNICIAN, LN Additional Peer to Peer Instructions You can call for the peer to peer at the date and time of your convenience Appeal Instructions Appeal Address [address] [address], [facility], [address] Appeal Fax# No fax# available Required Form(s) Yes, Please see attached or can be found at [email or web address] ([employer]). Additional Appeal Instructions Send it attention to: Appeals department. Include: coversheet with patient's and case information, a formal appeal letter and attach any pertinent supporting clinical documentation. Also, insurance requires a formal appeal form filled out if you would like to submit a written appeal. Facility Information Location [facility] [id number] Tax ID# [id number] Vivian Fried 12/15/2023 12:08 PM Signed Please advise on how you would like to proceed. Vivian Franco 12/15/2023 2:53 PM Signed This case was submitted to early. Patient is currently scheduled tomorrow 12/16/23 for the first procedure and on 12/22/23 for the follow up. We will need to do an appeal letter after the appointment on 12/22/23 if he has the relief that we are looking for. Bertha Alcantara APRN.EXPORT 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 12/24/2023 3:44 PM Signed I created a letter of appeal. Thanks for your help. Vivian Fried 12/24/2023 4:06 PM Signed Just placed a copy of the appeal letter with all the supporting documents in the mail. Vivian Franco 12/27/2023 12:35 PM Signed I have attempted to contact this patient by phone, Left brief message on cell voicemail stating that we had received the denial for his procedure on 12/31/23. I have mailed out the appeal for this but unfortunately we did have to cancel until we receive the approval back. Vivian Franco 01/25/2024 10:17 AM Signed Good morning, This e-mail is to apprise you that insurance has finished with the review on your appeal filed on 12/24/2023 and determined to upheld its decision based on procedure considered as no medically necessary. However, if you do not agree with their decision and you have more supporting documentation, different than the one already submitted, there is a second level appeal available, please see details below: Appeal fax#: [phone] Appeal mailing address: [address] [address], [facility], [address] Time frame limit: 60 calendar days from 01/04/2024 Attention to: Appeals dep (more content not included)... Normal [facility] CBC panel Auto (Bld)on 12-01 Erythrocyte distribution width (RBC) [Ratio] 14.2 % Normal 11.5-15.0 [facility] Comment on above: Order Comment: Speci brian Type: BLOOD SPECIMENOrdering Facility: [facility] Address: [address] [place] [address] Performed By: #### 5 8410-2 ####[facility] LABCLIA [id number] [place] [address] [place] Hematocrit (Bld) [Volume fraction] 41.8 % Normal 39.0-51.0 [facility] Comment on above: Order Comment: Wilbert torres Type: BLOOD SPECIMENOrdering Facility: [facility] Address: [address] [place] [address] Performed By: #### 5 8410-2 ####[facility] LABCLIA [id number] [place] [address] [place] Hemoglobin (Bld) [Mass/Vol] 14.0 g/dL Normal 13.0-17.0 [facility] Comment on above: Order Comment: Wilbert torres Type: BLOOD SPECIMENOrdering Facility: [facility] Address: [address] [place] [address] Performed By: #### 5 8410-2 ####[facility] LABCLIA [id number] [place] [address] [facility] MCH (RBC) [Entitic mass] 29.4 pg Normal 26.0-34.0 [facility] Comment on above: Order Comment: Speci men Type: BLOOD SPECIMENOrdering Facility: [facility] Address: [address] [place] [address] Performed By: #### 5 8410-2 ####[facility] LABCLIA [id number] [place] [address] [place] MCHC (RBC) [Mass/Vol] 33.5 g/dL Normal 30.5-36.0 [facility] Comment on above: Order Comment: Speci men Type: BLOOD SPECIMENOrdering Facility: [facility] Address: [address] [place] [address] Performed By: #### 5 8410-2 ####[facility] LABCLIA [id number] [place] [address] [facility] [place] MCV (RBC) [Entitic vol] 87.8 fL Normal 80.0-100.0 [facility] Comment on above: Order Comment: Speci men Type: BLOOD SPECIMENOrdering Facility: [facility] Address: [address] [place] [address] Performed By: #### 5 8410-2 ####[facility] LABCLIA [id number] [place] [address] [place] Platelet mean volume (Bld) [Entitic vol] 9.1 fL Normal 9.0-12.7 [facility] Comment on above: Order Comment: Speci men Type: BLOOD SPECIMENOrdering Facility: [facility] Address: [address] [place] [address] Performed By: #### 5 8410-2 ####[facility] LABCLIA [id number] [place] [address] [facility] Platelets (Bld) [#/Vol] 298 10*3/uL Normal 150-400 [facility] Comment on above: Order Comment: Speci men Type: BLOOD SPECIMENOrdering Facility: [facility] Address: [address] [id number] Performed By: #### 5 8410-2 ####[facility] LABCLIA [id number] [place] [address] [facility] RBC (Bld) [#/Vol] 4.76 10*6/uL Normal 4.20-6.00 [facility] Comment on above: Order Comment: Speci men Type: BLOOD SPECIMENOrdering Facility: [facility] Address: [address] [place] [address] [place], [place] [address] Performed By: #### 5 8410-2 ####[facility] LABCLIA [id number] [place] [address] [facility] WBC (Bld) [#/Vol] 7.31 10*3/uL Normal 3.70-11.00 [facility] Comment on above: Order Comment: Wilbert torres Type: BLOOD SPECIMENOrdering Facility: [facility] Address: [address] [place] [address] [place], [place] [address] Performed By: #### 5 8410-2 ####[facility] LABCLIA [id number] [place] [address] [facility] CNDSon 12-02-2023 CNDS HNO ID: [id number] Author: ALBERTINA DAVILA APRN.EXPORT 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 Service: Hospital Medicine Author Type: Nurse Practitioner Type: Discharge Summary Filed: 12/02/2023 11:00 Note Text: Attestation signed by Ji Fonseca MD at 12/10/2023 9:[address] [facility] STAFF PHYSICIAN NOTE OF PERSONAL INVOLVEMENT IN CARE I have reviewed the discharge summary obtained and documented by the nurse practitioner and discussed the case on as needed basis Principal Problem: COPD with acute exacerbation (HCC) (POA: Yes) Active Problems: Nicotine use disorder (POA: Yes) Morbid obesity (HCC) (POA: Yes) Severe persistent asthma (POA: Yes) Hyponatremia (POA: Yes) Lumbar stenosis (POA: Yes) Elevated troponin (POA: Yes) ETOH abuse (POA: Yes) Obesity, Class III, BMI >= 40 (POA: Unknown) Resolved Problems: Chronic obstructive pulmonary disease with acute exacerbation (HCC) (POA: Yes) Ji Fonseca MD, [facility] Staff,Dept of Hospital Medicine December 10, 2023 9:28 PM Pager:Click here to page DISCHARGE SUMMARY PATIENT NAME: Elis Bills ADMISSION DATE: 12/01/2023 DISCHARGE DATE: 12/02/2023 ATTENDING PHYSICIAN: Ji Fonseca MD Code Status: Full Code Highest Readmission Risk Score: 18 The 30 day readmissions risk score is derived from an internally validated risk model which evaluates patient level characteristics, utilization history, medication orders and lab results up until the day of discharge. Patients with a score of 40 or above are considered highest risk for readmission. Specific patient level drivers will be listed at the bottom of the summary. CONSULTING TEAMS DURING HOSPITALIZATION: None Treatment Team: Attending Provider: Ji Fonseca MD Nurse Practitioner: Albertina Davila APRN.CNP REASON FOR HOSPITALIZATION: SOB DIAGNOSIS: Principal Problem: COPD with acute exacerbation (HCC) (POA: Yes) Active Problems: Severe persistent asthma (POA: Yes) Hyponatremia (POA: Yes) Nicotine use disorder (POA: Yes) Morbid obesity (HCC) (POA: Yes) Lumbar stenosis (POA: Yes) Elevated troponin (POA: Yes) ETOH abuse (POA: Yes) Obesity, Class III, BMI >= 40 (POA: Unknown) Resolved Problems: Chronic obstructive pulmonary disease with acute exacerbation (HCC) (POA: Yes) OPERATIONS DURING HOSPITALIZATION: None PROCEDURES DURING HOSPITALIZATION: No procedures performed HOSPITAL COURSE: Elis Bills is a 63 year old male with PMH COPD/Asthma, HTN, CVA, presents today for evaluation of SOB that has been progressively worsening for 4 days. SOB is worse with exertion. Associated symptoms include small amount of clear sputum production, chest tightness. Patient reports he has had to use his rescue inhaler over 5 times in the last 12 hours. He reports he saw his slot floorman on 11/11/23 who ordered two new inhalers. He used them up until 4 days ago and stopped as he felt his cough was getting worse. He denies sudden weight gain, leg swelling, ABD bloating. He has an upcoming ECHO and sleep study ordered. In the ED: labs were significant for Na 123, Cl 87, BNP 214; HSTNT 31-->29. EKG-- SINUS RHYTHM WITH PREMATURE SUPRAVENTRICULAR COMPLEXES; RIGHT BUNDLE BRANCH BLOCK. CXR Coarse right basilar opacity suggesting atelectasis. Mild cardiomegaly. Patient was treated with IV Solu-medrol and duoneb. Patient remained HDS and was agreeable to observation overnight, but only at [facility]. Patient was admitted for further management. - patient was treated with breathing treatments and PO steroids. Given three day course of Azithromycin. Significant education provided to patient and on the importance of inhaler use and when to use was provided by myself and respiratory therapy. Patient was instructed to continue steroid taper to complete course, Resume using Dulera TWICE DAILY, Resume using Spiriva DAILY, use Budesonide TWICE DAILY, Use albuterol nebulizer every 4 hours NEEDED, bring Albuterol inhaler when leaving the house for rescue use if feeling SOB/wheezing. Instructed to take Omeprazole daily while taking steroids, wash mouth out after using Budesonide and Dulera to prevent thrush. Patient was instructed to follow up with pulmonary to discuss adjustments to inhalers if needed - Sodium levels were low on admission and osmo/Na studies pending. Sodium level did trend up slightly by discharge. TSH was normal. instructed to follow up with PCP in 1-2 weeks to discuss low sodium levels. Please have outpatient labs drawn and discuss results with PCP. Patient was adamant on leaving hospital prior to osmo studies were finalized. [facility]. Extreme education provided to patient on ETOH cessation and smoking cessation. Patient instructed on Fluid restriction of 1800mL daily (more content not included)... Normal [facility] Comprehensive metabolic 2000 panelon 12-02-2023 Albumin [Mass/Vol] 4.4 g/dL Normal 3.9-4.9 [facility] Comment on above: Order Comment: Speci men Type: BLOOD SPECIMENOrdering Facility: [facility] Address: [address] [place] [address] Performed By: #### 6 00-7 #### [facility] CLIA [id number] [address] OF [facility] ALP [Catalytic activity/Vol] 99 U/L Normal 38-113 [facility] Comment on above: Order Comment: Speci men Type: BLOOD SPECIMENOrdering Facility: [facility] Address: [address] [place] [address] Performed By: #### 6 00-7 #### [facility] CLIA [id number] [address] OF [facility] ALT With P-5'-P [Catalytic activity/Vol] 22 U/L Normal 10-54 [facility] Comment on above: Order Comment: Speci men Type: BLOOD SPECIMENOrdering Facility: [facility] Address: [address] [place] [address] Performed By: #### 6 00-7 #### [facility] CLIA [id number] [address] STATES OF [facility] Anion gap [Moles/Vol] 12 mmol/L Normal 9-18 [facility] Comment on above: Order Comment: Speci men Type: BLOOD SPECIMENOrdering Facility: [facility] Address: [address] [place] [address] Performed By: #### 6 00-7 #### [facility] CLIA [id number] [address] [place] AST With P-5'-P [Catalytic activity/Vol] 19 U/L Normal 14-40 [facility] Comment on above: Order Comment: Speci men Type: BLOOD SPECIMENOrdering Facility: [facility] Address: [address] [place] [address] Performed By: #### 6 -7 #### [facility] CLIA [id number] [address] [place] Bilirubin [Mass/Vol] 0.5 mg/dL Normal 0.2-1.3 [facility] Comment on above: Order Comment: Speci men Type: BLOOD SPECIMENOrdering Facility: [facility] Address: [address] [place] [address] Performed By: #### 6 00-7 #### [facility] CLIA [id number] 1 [place] [address] [place] Calcium [Mass/Vol] 9.7 mg/dL Normal 8.5-10.2 [facility] Comment on above: Order Comment: Speci men Type: BLOOD SPECIMENOrdering Facility: [facility] Address: [address] [place] [address] Performed By: #### 6 -7 #### [facility] CLIA [id number] 1 [place] [address] [place] Chloride [Moles/Vol] 92 mmol/L Low 97-105 [facility] Comment on above: Order Comment: Speci men Type: BLOOD SPECIMENOrdering Facility: [facility] Address: [address] [place] [address] Performed By: #### 6 7 #### [facility] CLIA [id number] 1 [place] [address] [place] CO2 [Moles/Vol] 25 mmol/L Normal 22-30 [facility] Comment on above: Order Comment: Speci men Type: BLOOD SPECIMENOrdering Facility: [facility] Address: [address] [place] [address] Performed By: #### 6 00-7 #### [facility] CLIA [id number] 1 [place] [address] [place] Creatinine [Mass/Vol] 0.90 mg/dL Normal 0.73-1.22 [facility] Comment on above: Order Comment: Speci men Type: BLOOD SPECIMENOrdering Facility: [facility] Address: [address] [place] [address] Performed By: #### 6 00-7 #### [facility] CLIA [id number] [address] [place] [address] Creatinine and Glomerular filtration rate.predicted panel (S/P/Bld) 95 mL/min/1.73m??? Normal >=60 [facility] Comment on above: Order Comment: Wilbert men Type: BLOOD SPECIMENOrdering Facility: [facility] Address: [address] [place] [address] Result Comment: Lala mated Glomerular Filtration Rate (eGFR) is calculated using the 2020 CKD-EPI creatinine equation. This equation utilizes serum creatinine, sex, and age as parameters. The creatinine assay has traceable calibration to isotope dilution-mass spectrometry. Refer to KDIGO guidelines for clinical interpretation. In patients with unstable renal function, e.g. those with acute kidney injury, the eGFR may not accurately reflect actual GFR. Performed By: #### 6 00-7 #### [facility] CLIA [id number] [address] [place] [address] [place] Glucose [Mass/Vol] 122 mg/dL High 74-99 [facility] Comment on above: Order Comment: Wilbert torres Type: BLOOD SPECIMENOrdering Facility: [facility] Address: [address] [place] [address] Result Comment: The [place] Diabetes Association (ADA) provides guidance for cutoff values for fasting glucose and random glucose. The ADA defines fasting as no caloric intake for at least 8 hours. Fasting plasma glucose results between 100 to 125 mg/dL indicate increased risk for diabetes (prediabetes). Fasting plasma glucose results greater than or equal to 126 mg/dL meet the criteria for diagnosis of diabetes. In the absence of unequivocal hyperglycemia, results should be confirmed by repeat testing. In a patient with classic symptoms of hyperglycemia or hyperglycemic crisis, random plasma glucose results greater than or equal to 200 mg/dL meet the criteria for diagnosis of diabetes. Reference: Standards of Medical Care in Diabetes 2016, [place] [employer] Association. Diabetes Care. 2016.39(Suppl 1). Performed By: #### 6 00-7 #### [facility] CLIA [id number] [address] [place] Potassium [Moles/Vol] 5.0 mmol/L Normal 3.7-5.1 [facility] Comment on above: Order Comment: Speci men Type: BLOOD SPECIMENOrdering Facility: [facility] Address: [address] [place] [address] Performed By: #### 6 00-7 #### [facility] CLIA [id number] 1 [place] [address] [place] Protein [Mass/Vol] 7.7 g/dL Normal 6.3-8.0 [facility] Comment on above: Order Comment: Speci men Type: BLOOD SPECIMENOrdering Facility: [facility] Address: [address] [place] [address] Performed By: #### 6 00-7 #### [facility] CLIA [id number] [address] [place] Sodium [Moles/Vol] 129 mmol/L Low 136-144 [facility] Comment on above: Order Comment: Speci men Type: BLOOD SPECIMENOrdering Facility: [facility] Address: [address] [place] [address] Performed By: #### 6 00-7 #### [facility] CLIA [id number] 1 [place] [address] [place] Urea nitrogen [Mass/Vol] 11 mg/dL Normal 9-24 [facility] Comment on above: Order Comment: Speci men Type: BLOOD SPECIMENOrdering Facility: [facility] Address: [address] [place] [address] Performed By: #### 6 00-7 #### [facility] CLIA [id number] 1 [place] [address] [place] Magnesium SerPl-mCncon 12-01 Magnesium [Mass/Vol] 2.3 mg/dL Normal 1.7-2.3 [facility] Comment on above: Order Comment: Speci men Type: BLOOD SPECIMENOrdering Facility: [facility] Address: [address] [place] [address] Performed By: #### 6 00-7 #### [facility] CLIA [id number] [address] NURSING PROGon 12-02-2023 NURSING PROG HNO ID: [id number] Author: RUBY MOTT, RN Service: ? Author Type: Registered Nurse Type: Nursing Progress Note Filed: 12/02/2023 12:16 Note Text: Discharge instructions printed and explained to pt and spouse. Questions answered. Personal belongings with pt and spouse. Pt discharged via wheelchair. Pt d/c to home with . Normal [facility] TSH SerPl-aCncon 12-02-2023 TSH Qn 1.730 m[IU]/L Normal 0.270-4.200 [facility] Comment on above: Order Comment: Speci men Type: BLOOD SPECIMENOrdering Facility: [facility] Address: [address] [place] [address] Performed By: #### 6 00-7 #### [facility] CLIA [id number] [address] OF [facility] Basic metabolic 2000 panelon 12-01-2023 Anion gap [Moles/Vol] 12 mmol/L Normal 9-18 [facility] Comment on above: Order Comment: Speci men Type: BLOOD SPECIMENOrdering Facility: [facility] Address: [address] [place] [address] Performed By: #### 3 2355-0 #### [facility] CLIA [id number] [address] STATES OF [facility] Calcium [Mass/Vol] 9.0 mg/dL Normal 8.5-10.2 [facility] Comment on above: Order Comment: Speci men Type: BLOOD SPECIMENOrdering Facility: [facility] Address: [address] [place] [address] Performed By: #### 3 2355-0 #### [facility] CLIA [id number] [address] [place] Chloride [Moles/Vol] 87 mmol/L Low 97-105 [facility] Comment on above: Order Comment: Speci men Type: BLOOD SPECIMENOrdering Facility: [facility] Address: [address] [place] [address] Performed By: #### 3 2355-0 #### [facility] CLIA [id number] [address] [place] CO2 [Moles/Vol] 24 mmol/L Normal 22-30 [facility] Comment on above: Order Comment: Speci men Type: BLOOD SPECIMENOrdering Facility: [facility] Address: [address] [place] [address] Performed By: #### 3 2355-0 #### [facility] CLIA [id number] [address] [place] Creatinine [Mass/Vol] 0.88 mg/dL Normal 0.73-1.22 [facility] Comment on above: Order Comment: Speci men Type: BLOOD SPECIMENOrdering Facility: [facility] Address: [address] [place] [address] Performed By: #### 3 2355-0 #### [facility] CLIA [id number] [address] Creatinine and Glomerular filtration rate.predicted panel (S/P/Bld) 96 mL/min/1.73m??? Normal >=60 [facility] Comment on above: Order Comment: Speci men Type: BLOOD SPECIMENOrdering Facility: [facility] Address: [address] [place] [address] Result Comment: Lala mated Glomerular Filtration Rate (eGFR) is calculated using the 2020 CKD-EPI creatinine equation. This equation utilizes serum creatinine, sex, and age as parameters. The creatinine assay has traceable calibration to isotope dilution-mass spectrometry. Refer to KDIGO guidelines for clinical interpretation. In patients with unstable renal function, e.g. those with acute kidney injury, the eGFR may not accurately reflect actual GFR. Performed By: #### 3 2355-0 #### [facility] CLIA [id number] [address] [place] Glucose [Mass/Vol] 103 mg/dL High 74-99 [facility] Comment on above: Order Comment: Speci men Type: BLOOD SPECIMENOrdering Facility: [facility] Address: [address] [place] [address] Result Comment: The [place] Diabetes Association (ADA) provides guidance for cutoff values for fasting glucose and random glucose. The ADA defines fasting as no caloric intake for at least 8 hours. Fasting plasma glucose results between 100 to 125 mg/dL indicate increased risk for diabetes (prediabetes). Fasting plasma glucose results greater than or equal to 126 mg/dL meet the criteria for diagnosis of diabetes. In the absence of unequivocal hyperglycemia, results should be confirmed by repeat testing. In a patient with classic symptoms of hyperglycemia or hyperglycemic crisis, random plasma glucose results greater than or equal to 200 mg/dL meet the criteria for diagnosis of diabetes. Reference: Standards of Medical Care in Diabetes 2016, [place] [employer]. Diabetes Care. 2016.39(Suppl 1). Performed By: #### 3 2355-0 #### [facility] CLIA [id number] 1 [place] [address] [place] Potassium [Moles/Vol] 4.3 mmol/L Normal 3.7-5.1 [facility] Comment on above: Order Comment: Karthikeyani men Type: BLOOD SPECIMENOrdering Facility: [facility] Address: [address] [place] [address] Performed By: #### 3 2355-0 #### [facility] CLIA [id number] 1 [place] [address] [place] Sodium [Moles/Vol] 123 mmol/L Low 136-144 [facility] Comment on above: Order Comment: Speci men Type: BLOOD SPECIMENOrdering Facility: [facility] Address: [address] [place] [address] Performed By: #### 3 2355-0 #### [facility] CLIA [id number] 1 [place] [address] [place] Urea nitrogen [Mass/Vol] 7 mg/dL Low 9-24 [facility] Comment on above: Order Comment: Speci men Type: BLOOD SPECIMENOrdering Facility: [facility] Address: [address] [place] [address] Performed By: #### 3 2355-0 #### [facility] CLIA [id number] [address] [place] [facility] CBC W Auto Differential pane l (Bld)on 12-01-2023 Basophils (Bld) [#/Vol] 0.06 10*3/uL Normal <0.11 [facility] Comment on above: Order Comment: Speci men Type: BLOOD SPECIMENOrdering Facility: [facility] Address: [address] [place] [address] Performed By: #### 5 7021-8 ####[facility] [id number] [place] [id number] [facility] Basophils/100 WBC (Bld) 0.9 % Normal [facility] Comment on above: Order Comment: Speci men Type: BLOOD SPECIMENOrdering Facility: [facility] Address: [address] [place] [address] Performed By: #### 5 7021-8 ####[facility] [id number] [place] [id number] [facility] Differential cell count method Nom (Bld) Auto Normal [facility] Comment on above: Order Comment: Speci men Type: BLOOD SPECIMENOrdering Facility: [facility] Address: [address] [place] [address] Performed By: #### 5 7021-8 ####[facility] [id number] [place] [address] [place] Eosinophils (Bld) [#/Vol] 0.07 10*3/uL Normal <0.46 [facility] Comment on above: Order Comment: Speci men Type: BLOOD SPECIMENOrdering Facility: [facility] Address: [address] [place] [address] Performed By: #### 5 7021-8 ####[facility] [id number] [place] [address] [facility] [place] Eosinophils/100 WBC (Bld) 1.0 % Normal [facility] Comment on above: Order Comment: Speci men Type: BLOOD SPECIMENOrdering Facility: [facility] Address: [address] [place] [address] Performed By: #### 5 7021-8 ####[facility] [id number] [place] [address] [place] Erythrocyte distribution width (RBC) [Ratio] 14.1 % Normal 11.5-15.0 [facility] Comment on above: Order Comment: Speci men Type: BLOOD SPECIMENOrdering Facility: [facility] Address: [address] [place] [address] Performed By: #### 5 7021-8 ####[facility] [id number] [place] [address] [place] Hematocrit (Bld) [Volume fraction] 37.6 % Low 39.0-51.0 [facility] Comment on above: Order Comment: Speci men Type: BLOOD SPECIMENOrdering Facility: [facility] Address: [address] [place] [address] Performed By: #### 5 7021-8 ####[facility] [id number] [facility] [address] [place] Hemoglobin (Bld) [Mass/Vol] 13.0 g/dL Normal 13.0-17.0 [facility] Comment on above: Order Comment: Speci men Type: BLOOD SPECIMENOrdering Facility: [facility] Address: [address] [place] [address] Performed By: #### 5 7021-8 ####[facility] [id number] [place] [address] [place] Immature granulocytes (Bld) [#/Vol] 0.04 10*3/uL Normal <0.10 [facility] Comment on above: Order Comment: Speci men Type: BLOOD SPECIMENOrdering Facility: [facility] Address: [address] [place] [address] Performed By: #### 5 7021-8 ####[facility] LAB[facility] [id number] [place] [address] [facility] Immature granulocytes/100 WBC (Bld) 0.6 % Normal [facility] Comment on above: Order Comment: Speci men Type: BLOOD SPECIMENOrdering Facility: [facility] Address: [address] [place] [address] Performed By: #### 5 7021-8 ####[facility] [id number] [place] [address] [facility] Lymphocytes (Bld) [#/Vol] 1.24 10*3/uL Normal 1.00-4.00 [facility] Comment on above: Order Comment: Speci men Type: BLOOD SPECIMENOrdering Facility: [facility] Address: [address] [place] [address] Performed By: #### 5 7021-8 ####[facility] [id number] [place] [id number] [facility] Lymphocytes/100 WBC (Bld) 18.2 % Normal [facility] Comment on above: Order Comment: Speci men Type: BLOOD SPECIMENOrdering Facility: [facility] Address: [address] [place] [address] Performed By: #### 5 7021-8 ####[facility] [id number] [place] [address] [place] MCH (RBC) [Entitic mass] 29.5 pg Normal 26.0-34.0 [facility] Comment on above: Order Comment: Speci men Type: BLOOD SPECIMENOrdering Facility: [facility] Address: [address] [place] [address] Performed By: #### 5 7021-8 ####[facility] [id number] [place] [address] [place] MCHC (RBC) [Mass/Vol] 34.6 g/dL Normal 30.5-36.0 [facility] Comment on above: Order Comment: Speci men Type: BLOOD SPECIMENOrdering Facility: [facility] Address: [address] [place] [address] Performed By: #### 5 7021-8 ####[facility] [id number] [facility] [address] [place] MCV (RBC) [Entitic vol] 85.3 fL Normal 80.0-100.0 [facility] Comment on above: Order Comment: Speci men Type: BLOOD SPECIMENOrdering Facility: [facility] Address: [address] [place] [address] Performed By: #### 5 7021-8 ####[facility] [id number] [place] [address] [place] Monocytes (Bld) [#/Vol] 0.89 10*3/uL High <0.87 [facility] Comment on above: Order Comment: Speci men Type: BLOOD SPECIMENOrdering Facility: [facility] Address: [address] [place] [address] Performed By: #### 5 7021-8 ####[facility] [id number] [place] [address] [place] [facility] Monocytes/100 WBC (Bld) 13.1 % Normal [facility] Comment on above: Order Comment: Speci men Type: BLOOD SPECIMENOrdering Facility: [facility] Address: [address] [place] [address] Performed By: #### 5 7021-8 ####[facility] [id number] [place] [address] [place] Neutrophils (Bld) [#/Vol] 4.50 10*3/uL Normal 1.45-7.50 [facility] Comment on above: Order Comment: Speci men Type: BLOOD SPECIMENOrdering Facility: [facility] Address: [address] [place] [address] Performed By: #### 5 7021-8 ####[facility] [id number] [place] [address] [place] Neutrophils/100 WBC (Bld) 66.2 % Normal [facility] Comment on above: Order Comment: Speci men Type: BLOOD SPECIMENOrdering Facility: [facility] Address: [address] [place] [address] Performed By: #### 5 7021-8 ####[facility] [id number] [facility] [address] [place] Nucleated RBC (Bld) [#/Vol] Normal [facility] Comment on above: Order Comment: Speci men Type: BLOOD SPECIMENOrdering Facility: [facility] Address: [address] [place] [address] Performed By: #### 5 7021-8 ####[facility] [id number] [facility] [place] [address] [facility] [place] Nucleated RBC/100 WBC (Bld) [Ratio] Normal [facility] Comment on above: Order Comment: Speci men Type: BLOOD SPECIMENOrdering Facility: [facility] Address: [address] [place] [address] Performed By: #### 5 7021-8 ####[facility] [id number] [facility] [place] [address] [place] Platelet mean volume (Bld) [Entitic vol] 8.8 fL Low 9.0-12.7 [facility] Comment on above: Order Comment: Speci men Type: BLOOD SPECIMENOrdering Facility: [facility] Address: [address] [place] [address] Performed By: #### 5 7021-8 ####[facility] [id number] [facility] [place] [address] [place] Platelets (Bld) [#/Vol] 242 10*3/uL Normal 150-400 [facility] Comment on above: Order Comment: Speci men Type: BLOOD SPECIMENOrdering Facility: [facility] Address: [address] [place] [address] Performed By: #### 5 7021-8 ####[facility] LABIA [id number] [place] [address] [facility] [place] RBC (Bld) [#/Vol] 4.41 10*6/uL Normal 4.20-6.00 [facility] Comment on above: Order Comment: Speci men Type: BLOOD SPECIMENOrdering Facility: [facility] Address: [address] [place] [address] Performed By: #### 5 7021-8 ####[facility] LABCLIA [id number] [place] [address] [facility] WBC (Bld) [#/Vol] 6.80 10*3/uL Normal 3.70-11.00 [facility] Comment on above: Order Comment: Speci men Type: BLOOD SPECIMENOrdering Facility: [facility] Address: [address] [place] [address] Performed By: #### 5 7021-8 ####[facility] LABIA [id number] [place] [address] [facility] ECG COMPLETEon 12-01-2023 ECG COMPLETE Ventricular Rate : 6 9 BPM Atrial Rate : 69 BPM P-R Interval : 138 ms QRS Duration : 126 ms Q-T Interval : 450 ms QTC Calculation(Bazett) : 482 ms Calculated P [place] : -13 degrees Calculated R [place] : 78 degrees Calculated T [place] : 24 degrees SINUS RHYTHM WITH PREMATURE SUPRAVENTRICULAR COMPLEXES RIGHT BUNDLE BRANCH BLOCK ABNORMAL ECG NO PREVIOUS ECGS AVAILABLE Confirmed by MD SUAREZ VINAYAK ([id number]) on 12/03/2023 4:27:07 PM NAME : ELIS BILLS PID : [id number] : 1960 Gender : Male Race : ORD : [id number] Procedure Date : Dec 01 2023 09:50:21 Edit Date : Dec 03 2023 16:27:10 Diagnosis: SINUS RHYTHM WITH PREMATURE SUPRAVENTRICULAR COMPLEXES RIGHT BUNDLE BRANCH BLOCK ABNORMAL ECG NO PREVIOUS ECGS AVAILABLE Confirmed by MD SUAREZ VINAYAK ([id number]) on 12/03/2023 4:27:07 PM Test Reason : Shortness of Breath Location : 191 : [facility] ED Overread By : MD SUAREZ VINAYAK Edited By : MD SUAREZ VINAYAK Referred By : , Acquired by : DAREN RUCKER [facility] ED NOTEon 12-01-2023 ED NOTE HNO ID: [id number] Author: JORGE JONES, NEENA Service: Nursing Author Type: Registered Nurse Type: ED Notes Filed: 12/01/2023 12:48 Note Text: Patient resting in bed with spouse at bedside. This RN notified patient of room assignment. [facility] ED NOTE HNO ID: [id number] Author: JORGE JONES, NEENA Service: Nursing Author Type: Registered Nurse Type: ED Notes Filed: 12/01/2023 10:59 Note Text: Patient ambulated to bathroom with steady gait. He returned to room 12 SOB, and feeling unchanged from when he arrived. [facility] ED NOTE HNO ID: [id number] Author: JORGE JONES RN Service: Nursing Author Type: Registered Nurse Type: ED Notes Filed: 12/01/2023 09:34 Note Text: Wednesday patient started to feeling winded and it has progressed to SOB with rest or activity. He has used several albuterol treatments at home with no improvement of symptoms. He denies fever but reports a productive cough. No home oxygen needs for his COPD. [facility] ED PROV NOTEon 12-01-2023 ED PROV NOTE HNO ID: [id number] Author: KEYONA CARL DO Service: Emergency Medicine Author Type: Physician Type: ED Provider Notes Filed: 12/01/2023 12:21 Note Text: ED Provider Note Patient Name: Elis Bills : 1960 SERVICE DATE: 12/01/23 History Patient presents with: Shortness of Breath Elis Bills is a 63 year old male with history of COPD who presents with Shortness of Breath. - Symptoms began Wednesday. - Severity: moderate - Timing: constant - Quality: productive cough - Shortness of Breath is exacerbated by exertion. - Symptoms are associated with productive cough, wheezing. - Symptoms are not associated with chest pain, diarrhea, fever, nausea, vomiting, leg swelling. Patient presents stating that he has a history of COPD. He states that he was a 30 cigarettes a day smoker, but is cut down to 10 cigarettes a day. He states that he started feeling short of breath with a productive cough on Wednesday. He reports the shortness of breath has progressively worsened. Shortness of breath is worsened with exertion. No chest pain. No fever. No nausea, vomiting or diarrhea. No abdominal pain. No leg swelling. PAST MEDICAL HISTORY Diagnosis Date COPD (chronic obstructive pulmonary disease) (HCC) Hypercholesteremia Stroke (HCC) History reviewed. No pertinent surgical history. FAMILY HISTORY Problem Relation Age of Onset No Known Problems Mother Leukemia Father Social History Tobacco Use Smoking status: Every Day Packs/day: .5 Types: Cigarettes Smokeless tobacco: Never Vaping Use Vaping Use: Never used Substance and Sexual Activity Alcohol use: Yes Comment: 6 pack a day Drug use: Never Sexual activity: Not on file ALLERGIES Allergen Reactions Penicillins Unknown Review of Systems Constitutional: Negative for chills and fever. HENT: Negative for sore throat and trouble swallowing. Respiratory: Positive for cough, shortness of breath and wheezing. Cardiovascular: Negative for chest pain, palpitations and leg swelling. Gastrointestinal: Negative for abdominal pain, diarrhea, nausea and vomiting. Genitourinary: Negative for flank pain. Musculoskeletal: Negative for neck stiffness. Skin: Negative for rash. Neurological: Negative for syncope and weakness. Psychiatric/Behaviora l: Negative for agitation and confusion. Physical Exam Vitals [12/01/23 0926] BP Pulse Temp Temp src Resp SpO2 Weight Height 159/86 69 36.7 ?C (98 ?F) LT Tympanic (!) 28 96 % 126.1 kg (278 lb) -- Physical Exam Vitals and nursing note reviewed. Constitutional: Appearance: He is not toxic-appearing or diaphoretic. HENT: Head: Normocephalic and atraumatic. Mouth/Throat: Mouth: Mucous membranes are moist. No oral lesions or angioedema. Pharynx: Oropharynx is clear. Uvula midline. No oropharyngeal exudate or posterior oropharyngeal erythema. Tonsils: No tonsillar exudate or tonsillar abscesses. Eyes: Conjunctiva/sclera: Conjunctivae normal. Neck: Vascular: No JVD. Trachea: Trachea and phonation normal. Cardiovascular: Rate and Rhythm: Normal rate and regular rhythm. Pulses: Normal pulses. Pulmonary: Effort: Tachypnea present. No accessory muscle usage, respiratory distress or retractions. Breath sounds: Examination of the right-upper field reveals wheezing. Examination of the left-upper field reveals wheezing. Examination of the right-middle field reveals wheezing. Examination of the left-middle field reveals wheezing. Examination of the right-lower field reveals wheezing. Examination of the left-lower field reveals wheezing. Wheezing present. Abdominal: Palpations: Abdomen is soft. Tenderness: There is no abdominal tenderness. There is no guarding or rebound. Musculoskeletal: Cervical back: Neck supple. Right lower leg: No edema. Left lower leg: No edema. Skin: General: Skin is warm and dry. Capillary Refill: Capillary refill takes less than 2 seconds. Neurological: General: No focal deficit present. Mental Status: He is alert and oriented to person, place, and time. GCS: GCS eye subscore is 4. GCS verbal subscore is 5. GCS motor subscore is 6. Psychiatric: Mood and Affect: Mood normal. Behavior: Behavior normal. Diagnostic Testing ED Labs Ordered and Reviewed - No data to display Procedures ED Course / Clinical Impression Clinical Impressions as of 12/01/23 1210 COPD exacerbation (HCC) Hyponatremia MDM / Disposition / Plan Will obtain labs, EKG and chest imaging. DuoNeb and Solu-Medrol ordered. On re-evaluation: Patient resting in bed, no distress. He reports his shortness of breath is improving after DuoNeb and solumedrol. Lungs: expiratory wheezing bilaterally. No respiratory distress. Labs Reviewed BASIC METABOLIC PANEL - Abnormal; Notable for the following components: Glucose 103 (*) BUN 7 (*) Sodium 123 (*) Chloride 87 (*) All other components within n (more content not included)... Normal [facility] FLUABV+SARS-CoV-2+RSV Pnl Re sp YADIRA+probeon 12-01-2023 FLUABV+SARS-CoV-2+RSV Pnl Resp YADIRA+probe COVID 19 RESULT: Not detected The method used is RT-PCR or an equivalent NAAT method. Reference Range(the expected result in uninfected individuals): Not detected INFLUENZA A PCR: Not detected INFLUENZA B PCR: Not detected RSV PCR: Not detected Normal [facility] Comment on above: Performed By: #### 9 5941-1 ####[facility] LABCLIA [id number] [place] [address] [place] HIGH SENSITIVITY TROPONIN T (INITIAL)on 12-01-2023 Troponin T.cardiac High sensitivity method [Mass/Vol] 31 ng/L High <12 [facility] Comment on above: Order Comment: Wilbert torres Type: BLOOD SPECIMENOrdering Facility: [facility] Address: [address] [place] [address] Result Comment: When assessing risk for acute coronary syndromes: In patients undergoing blood draw greater than or equal to 2 hours from symptom onset, with history of very low to moderate risk and non-ischemic ECG, an initial hs-Troponin T less than 12 ng/L AND a 1 hour delta hs-Troponin T less than 3 ng/L should be considered very low risk for 30 day MACE. Performed By: #### 6 00-7 #### [facility] CLIA [id number] [address] HIGH SENSITIVITY TROPONIN T (SECOND)on 12-01-2023 Troponin T.cardiac High sensitivity method [Mass/Vol] 29 ng/L High <12 [facility] Comment on above: Order Comment: Wilbert torres Type: BLOOD SPECIMENOrdering Facility: [facility] Address: [address] [place] [address] Result Comment: When assessing risk for acute coronary syndromes: In patients undergoing blood draw greater than or equal to 2 hours from symptom onset, with history of very low to moderate risk and non-ischemic ECG, an initial hs-Troponin T less than 12 ng/L AND a 1 hour delta hs-Troponin T less than 3 ng/L should be considered very low risk for 30 day MACE. Performed By: #### 6 00-7 #### [facility] CLIA [id number] [address] [place] HIGH SENSITIVITY TROPONIN T (THIRD) 3 HRS AFTER INITIALon 12-01-2023 Troponin T.cardiac High sensitivity method [Mass/Vol] 24 ng/L High <12 [facility] Comment on above: Order Comment: Wilbert torres Type: BLOOD SPECIMENOrdering Facility: [facility] Address: [address] [place] [address] Result Comment: When assessing risk for acute coronary syndromes: In patients undergoing blood draw greater than or equal to 2 hours from symptom onset, with history of very low to moderate risk and non-ischemic ECG, an initial hs-Troponin T less than 12 ng/L AND a 1 hour delta hs-Troponin T less than 3 ng/L should be considered very low risk for 30 day MACE. Performed By: #### 3 2355-0 #### [facility] CLIA [id number] [address] STATES OF [facility] HISTORY PHYSICALon HISTORY PHYSICAL HNO ID: [id number] Author: ALBERTINA DAVILA APRN.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 Service: Hospital Medicine Author Type: Nurse Practitioner Type: H&P Filed: 12/01/2023 15:07 Note Text: Attestation signed by Ji Fonseca MD at 12/10/2023 9:[address] [facility] STAFF PHYSICIAN NOTE OF PERSONAL INVOLVEMENT IN CARE I have reviewed the history and physical examination obtained and documented by the nurse practitioner and discussed the case on as needed basis Principal Problem: COPD with acute exacerbation (HCC) (POA: Yes) Active Problems: Nicotine use disorder (POA: Yes) Morbid obesity (HCC) (POA: Yes) Severe persistent asthma (POA: Yes) Hyponatremia (POA: Yes) Lumbar stenosis (POA: Yes) Elevated troponin (POA: Yes) ETOH abuse (POA: Yes) Obesity, Class III, BMI >= 40 (POA: Unknown) Resolved Problems: Chronic obstructive pulmonary disease with acute exacerbation (HCC) (POA: Yes) Ji Fonseca MD, [facility] Staff,Dept of Hospital Medicine December 10, 2023 9:25 PM Pager:Click here to page DEPARTMENT OF HOSPITAL MEDICINE HISTORY AND PHYSICAL EXAM SERVICE DATE: 12/01/2023 SERVICE TIME: 1:45 PM Primary Care Physician: Pilar Steele, DO NIGHT AND WEEKEND COVERAGE: [facility] Medicine ROMÁN 7a-7p Page [id number] Subjective CHIEF COMPLAINT: SOB HPI: This is a 63 year old male with PMH COPD/Asthma, HTN, CVA, presents today for evaluation of SOB that has been progressively worsening for 4 days. SOB is worse with exertion. Associated symptoms include small amount of clear sputum production, chest tightness. Patient reports he has had to use his rescue inhaler over 5 times in the last 12 hours. He reports he saw his slot floorman on 11/11/23 who ordered two new inhalers. He used them up until 4 days ago and stopped as he felt his cough was getting worse. He denies sudden weight gain, leg swelling, ABD bloating. He has an upcoming ECHO and sleep study ordered. In the ED: labs were significant for Na 123, Cl 87, BNP 214; HSTNT 31-->29. EKG-- SINUS RHYTHM WITH PREMATURE SUPRAVENTRICULAR COMPLEXES; RIGHT BUNDLE BRANCH BLOCK. CXR Coarse right basilar opacity suggesting atelectasis. Mild cardiomegaly. Patient was treated with IV Solu-medrol and duoneb. Patient remained HDS and was agreeable to observation overnight, but only at [facility]. Patient will be admitted for further management. PAST MEDICAL HISTORY Diagnosis Date COPD (chronic obstructive pulmonary disease) (HCC) Hypercholesteremia Stroke (HCC) History reviewed. No pertinent surgical history. FAMILY HISTORY Problem Relation Age of Onset No Known Problems Mother Leukemia Father Social History Tobacco Use Smoking status: Every Day Packs/day: .5 Types: Cigarettes Smokeless tobacco: Never Vaping Use Vaping Use: Never used Substance Use Topics Alcohol use: Yes Comment: 6 pack a day Drug use: Never PRIOR TO ADMISSION MEDICATIONS: atorvastatin (LIPITOR) 80 mg tablet, Take 80 mg by mouth once daily., Disp: , Rfl: albuterol HFA (PROVENTIL HFA, VENTOLIN HFA) 90 mcg/actuation inhaler, Inhale 2 Puffs as instructed every 4 hours as needed for wheezing/shortness of breath., Disp: 1 Each, Rfl: 3, 12/01/2023 montelukast (SINGULAIR) 10 mg tablet, Take 1 tablet by mouth daily at bedtime., Disp: 90 tablet, Rfl: 3, 11/30/2023 nicotine polacrilex (NICORETTE) 4 mg gum, Take 1 Each by mouth as needed., Disp: 300 Each, Rfl: 3, 12/01/2023 budesonide (PULMICORT) 0.5 mg/2 mL nebulizer solution, Use 2 mL via nebulizer two times a day., Disp: 360 mL, Rfl: 3 lisinopril 2.5 mg tablet, Take 2.5 mg by mouth once daily., Disp: , Rfl: , 12/01/2023 clopidogrel (PLAVIX) 75 mg tablet, Take 75 mg by mouth once daily., Disp: , Rfl: , 12/01/2023 OMEPRAZOLE (PRILOSEC ORAL), Take 10 mg by mouth as needed. Unsure of dose, Disp: , Rfl: albuterol (PROVENTIL) 2.5 mg /3 mL (0.083 %) nebulizer solution, Use 3 mL via nebulizer three times a day. Inhale over 5-15 minutes, Disp: 810 mL, Rfl: 3 MEDICATION, NON-DATABASE, OTC cold med, Disp: , Rfl: ALLERGIES Allergen Reactions Penicillins Unknown REVIEW OF SYSTEM: Review of Systems Constitutional: Negative for chills and fever. Respiratory: Positive for cough, sputum production, shortness of breath and wheezing. Cardiovascular: Negative for chest pain, palpitations and leg swelling. +tightness in chest Gastrointestinal: Negative. Genitourinary: Negative. Musculoskeletal: Positive for back pain. +chronic back pain Skin: Negative. Neurological: Negative for dizziness, weakness and headaches. Objective PHYSICAL EXAM: BP 120/108 Pulse 71 Temp (Src) 98 (Left Tympanic) Resp 27 Wt 278 lb (126.1kg) SpO2 95% O2 Therapy: Room Air Physical Exam Performed: Physical Exam Vitals reviewed. Constitutional: General: He is (more content not included)... Normal [facility] NT-proBNP [facility] 11-30 Natriuretic peptide.B prohormone N-Terminal [Mass/Vol] 214 pg/mL High <125 [facility] Comment on above: Order Comment: Speci men Type: BLOOD SPECIMENOrdering Facility: [facility] Address: [address] [place] [address] Performed By: #### 3 2355-0 #### [facility] CLIA [id number] [address] [place] NURSING PROGon 12-01-2023 NURSING PROG HNO ID: [id number] Author: ARI HATCH, RN Service: Nursing Author Type: Registered Nurse Type: Nursing Progress Note Filed: 12/01/2023 15:46 Note Text: Pt arrived to floor per w/c from ER. Pt admitted to room 102. Dx: COPD Exac . All treatments and procedures were explained. Pt oriented to room and unit. SOB noted from ambulation from chair to bed. Pt denies any pain. Pt c/odiscomfort. present in room. Normal [facility] Osmolality SerPlon Osmolality [Osmolality] 262 mosm/kg Low 275-300 [facility] Comment on above: Order Comment: Speci men Type: BLOOD SPECIMENOrdering Facility: [facility] Address: [address] [place] [address] Performed By: #### 6 00-7 #### [facility] [id number] [address] [place] [address] [place] Osmolality Uron 12-01-2023 Osmolality (U) [Osmolality] 111 mosm/kg Normal 50-1200 [facility] Comment on above: Order Comment: Speci men Type: URINE SPECIMENOrdering Facility: [facility] Address: [address] [place] [address] Performed By: #### 2 695-5 ####[facility] [id number] [place] [address] [place]#### 06918-2 ####[facility] LABORATORYCLIA [id number] [place] [address] [place] Procalcitonin SerPl-mCncon 0 12-01-2023 Procalcitonin [Mass/Vol] 0.08 ng/mL Normal <0.09 [facility] Comment on above: Order Comment: Speci men Type: BLOOD SPECIMENOrdering Facility: [facility] Address: [address] [place] [address] Result Comment: For a guided interpretation of test results, please visit the Change in Procalcitonin Calculator, [email or web address]. Performed By: #### 3 2355-0 #### [facility] CLIA [id number] [address] OF [facility] Sodium ?Tm Ur-sCncon 024 Sodium Unsp time (U) [Moles/Vol] <20 Normal 14-216 [facility] Comment on above: Order Comment: Speci men Type: URINE SPECIMENOrdering Facility: [facility] Address: [address] [place] [address] Performed By: #### 2 695-5 ####[facility] [id number] [address] [place]#### [address]47[address]-3 ####[facility]ORATORYCLIA [id number] [address] [place] Urate SerPl-mCncon 4 Urate [Mass/Vol] 6.8 mg/dL Normal 4.0-8.1 [facility] Comment on above: Order Comment: Speci men Type: BLOOD SPECIMENOrdering Facility: [facility] Address: [address] [place] [address] Performed By: #### 3 2355-0 #### [facility] CLIA [id number] [address] [place] XR CHEST 1V FRONTALon 2023 XR CHEST 1V FRONTAL * * *Final Report* * * DATE OF EXAM: Dec 01 2023 10:35AM LDX 5290 - XR CHEST 1V FRONTAL / PROCEDURE REASON: Shortness of breath * * * * Physician Interpretation * * * * EXAMINATION: CHEST RADIOGRAPH (SINGLE VIEW AP OR PA) CLINICAL HISTORY: Shortness of breath MQ: XC1_5 Comparison: CT chest 09/02/2023. RESULT: Lines, tubes, and devices: None. Lungs and pleura: Coarse right basilar opacity. No consolidation. No pleural effusion. Cardiomediastinal silhouette: Mild cardiomegaly. Other: Dextroscoliosis of the thoracic spine. IMPRESSION: Coarse right basilar opacity suggesting atelectasis. Mild cardiomegaly. Package Winder: YAIR Transcribe Date/Time: Dec 01 2023 10:52A Dictated by : JUAREZ RODAS MD This examination was interpreted and the report reviewed and electronically signed by: JUAREZ RODAS MD on Dec 01 2023 10:57AM EST [id number] Normal [facility] 11-21-2023 JELENA Telephone (AGSPHWG) ELIS BILLS ([id number]) 1960 Date Time Provider Department 11/21/23 [facility] During your visit today, we recorded the following information about you: Bertha Schumacher APRN.NABOR 11/21/2023 10:20 PM Signed Hi, can you please call this pt and set up for a virtual visit with me this to discuss his MRI results? Richie. Albertina Martin 11/23/2023 9:13 AM Signed Spoke with patient and scheduled virtual visit with Bertha Schumacher on 11/25/2023 to discuss MRI Albertina Martin Dulzura to Dr. Everton Decker MD / Bertha Schumacher CNP, APRN [facility] [address] [place] [address] Phone. [phone] / Fax. [phone] Allergies As of Date: 11/21/2023 Noted Allergy Reaction PENICILLINS 08/27/2014 16 - Unknown Date Reviewed: 11/19/2023 Reviewed by: Malena Yoder, measurement coordinator - Fully Assessed Prescriptions as of 11/23/2023 - tiotropium bromide (SPIRIVA RESPIMAT) 2.5 mcg/actuation inhaler Inhale 2 Puffs as instructed once daily. - mometasone-formoterol (DULERA) 200-5 mcg/actuation inhaler Inhale 2 Puffs as instructed two times a day. - albuterol HFA (PROVENTIL HFA, VENTOLIN HFA) 90 mcg/actuation inhaler Inhale 2 Puffs as instructed every 4 hours as needed for wheezing/shortness of breath. - predniSONE (DELTASONE) 20 mg tablet Take 1 tablet by mouth as directed. TID for 4 days then decrease to bid for 4 days then daily for 4 days then stop. - albuterol (PROVENTIL) 2.5 mg /3 mL (0.083 %) nebulizer solution Use 3 mL via nebulizer three times a day. Inhale over 5-15 minutes - montelukast (SINGULAIR) 10 mg tablet Take 1 tablet by mouth daily at bedtime. - nicotine polacrilex (NICORETTE) 4 mg gum Take 1 Each by mouth as needed. - budesonide (PULMICORT) 0.5 mg/2 mL nebulizer solution Use 2 mL via nebulizer two times a day. - lisinopril 2.5 mg tablet - traMADol (ULTRAM) 50 mg tablet - varenicline (CHANTIX) 1 mg tablet Take 0.5 tablets by mouth once daily for 3 days, THEN 0.5 tablets two times a day for 4 days, THEN 1 tablet two times a day for 23 days. - varenicline (CHANTIX) 1 mg tablet Take 1 tablet by mouth two times a day. Patient should start on September 19, 2023. - nicotine (NICODERM CQ) 21 mg/24 hr Apply 1 Patch as directed every 24 hours. - clopidogrel (PLAVIX) 75 mg tablet Take 75 mg by mouth once daily. - atorvastatin (LIPITOR) 20 mg tablet Take 20 mg by mouth once daily. Unsure of dose - celecoxib (CELEBREX) 200 mg capsule Take 200 mg by mouth two times a day. - OMEPRAZOLE (PRILOSEC ORAL) Take 10 mg by mouth as needed. Unsure of dose - MEDICATION, NON-DATABASE OTC cold med - albuterol HFA (PROVENTIL HFA, VENTOLIN HFA) 90 mcg/actuation inhaler Inhale 2 Puffs as instructed every 6 hours as needed for Wheezing/Shortness of Breath. - predniSONE (DELTASONE) 20 mg tablet Take 2 tablet by mouth daily for 5 days. Problem List As Of Date 11/21/2023 Noted Resolved Chronic bronchitis (HCC) [J42] 08/20/2023 Wheezing [R06.2] 08/20/2023 Chronic obstructive pulmonary disease (HCC) [J4*08/20/2023 Tobacco use disorder [F17.200] 08/20/2023 Morbid obesity (HCC) [E66.01] 08/20/2023 Lung nodules [R91.8] 11/11/2023 Severe persistent asthma [J45.50] 11/11/2023 Encounter Status:Closed by ALBERTINA MARTIN on 11/23/23 [facility] MR Lumbar spine WO contrasto n 11-19-2023 IMPRESSION: Subacute compression fracture deformity of the L1 ventral superior endplate with approximately 20% height loss and moderate generalized edema, but no convincing underlying pathologic marrow replacement. Diffuse lumbar epidural lipomatous hypertrophy with superimposed degenerative changes with resultant thecal sac narrowing being most pronounced and severe at L2-L3 and L3-L4. Neuroforaminal stenosis most pronounced and moderate in severity on the right at L5-S1. 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 Anatomic Thoracic/Lumbar Variant: None. L4-5 is considered the level of the iliac crest and assume there are 5 lumbar-type vertebrae. Package Winder: PSCB Transcribe Date/Time: Nov 19 2023 3:30P Dictated by : MECHELLE EDMONDSON MD This examination was interpreted and the report reviewed and electronically signed by: MECHELLE EDMONDSON MD on Nov 19 2023 3:44PM [facility] DIVISION OF RADIOLOGY * * *Final Report* * * DATE OF EXAM: Nov 19 2023 12:39PM BRM [id number] - MRI LUMBAR SPINE WO IVCON / PROCEDURE REASON: Spinal 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 * * * * Physician Interpretation * * * * EXAMINATION: MRI LUMBAR SPINE WO IVCON Clinical history provided by the ordering clinician via order question and clinical decision support entries: Spinal stenosis, spondylolisthesis, radiculopathy, trauma. Spinal stenosis, lumbar. Spinal 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. Stated history: stenosis, fall, lbp, no prev. TECHNIQUE: Routine lumbosacral spine MR protocol without gadolinium. MQ: MRLWO_3 COMPARISON: 09/02/[address] RESULT: Counting reference: Lumbosacral junction. For the purposes of this report, L4-5 is considered the level of the iliac crest and assume there are 5 lumbar-type vertebrae. Anatomic variant: None. Alignment: Alignment is anatomic. Bone marrow signal/fracture: Moderate generalized edema throughout the L1 vertebral body associated with a ventral superior endplate predominant compression fracture deformity with approximately 20% ventral loss of vertebral body height. Incidental small vertebral body hemangioma along the dorsal right upper margin of the L2 vertebral body. Type II degenerative endplate changes at L2-L3 most pronounced along the right ventral margin. Mild type I degenerative endplate changes along the dorsal midline and left dorsolateral margin of L3-L4. Chronic nondisplaced right L5 pars defect and questionable integrity of the left L5 pars interarticularis. Conus: Normal in signal and morphology terminating at the level of the mid L1 vertebral body. Soft tissues: The dorsal paraspinal soft tissues are within normal limits. The paravertebral soft tissues are unremarkable. Imaged portions of the intra-abdominal intrapelvic contents demonstrate no significant findings. T11-T12: Canal and foramina are patent. T12-L1: Canal and foramina are patent. L1-L2: Prominent epidural lipomatous tissue mild to moderately effacing the thecal sac, but otherwise no substantial superimposed spinal canal or neuroforaminal stenosis. L2-L3: Prominent epidural lipomatous tissue with superimposed disc bulge and endplate osteophyte formation with resultant severe effacement of the thecal sac. Endplate osteophyte formation and facet arthropathy contributes to no more than mild left and no substantial right foraminal stenosis. L3-L4: Prominent epidural lipomatous tissue with superimposed disc bulge, endplate osteophyte formation, and facet arthropathy contributing to severe effacement of the thecal sac and mild left and no substantial right foraminal stenosis. L4-L5: Prominent epidural lipomatous tissue with disc bulge, endplate osteophyte formation, facet arthropathy contributing to no more than mild thecal sac effacement and no more than mild bilateral foraminal stenosis. L5-S1: Prominent epidural lipomatous tissue in conjunction with disc bulge, endplate osteophyte formation, and facet arthropathy contributing to mild to moderate thecal sac effacement and moderate right and mild left foraminal stenosis. Sacrum and iliac wings: The visualized sacrum and iliac wings are within normal limits. The presacral soft tissues are normal in appearance. Localizer images: Circumscribed subcentimeter T2 hyperintense focus in the posterior right hepatic lobe suggesting a small cyst or hemangioma. DIVISION OF RADIOLOGY Provider, [facility] - 11/19/2023 * * *Final Report* * * DATE OF EXAM: Nov 19 2023 12:39PM BRM 0303 - MRI LUMBAR SPINE WO IVCON / PROCEDURE REASON: Spinal 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 * * * * Physician Interpretation * * * * EXAMINATION: MRI LUMBAR SPINE WO IVCON Clinical history provided by the ordering clinician via order question and clinical decision support entries: Spinal stenosis, spondylolisthesis, radiculopathy, trauma. Spinal stenosis, lumbar. Spinal 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. Stated history: stenosis, fall, lbp, no prev. TECHNIQUE: Routine lumbosacral spine MR protocol without gadolinium. MQ: MRLWO_3 COMPARISON: 09/02/[address] RESULT: Counting reference: Lumbosacral junction. For the purposes of this report, L4-5 is considered the level of the iliac crest and assume there are 5 lumbar-type vertebrae. Anatomic variant: None. Alignment: Alignment is anatomic. Bone marrow signal/fracture: Moderate generalized edema throughout the L1 vertebral body associated with a ventral superior endplate predominant compression fracture deformity with approximately 20% ventral loss of vertebral body height. Incidental small vertebral body hemangioma along the dorsal right upper margin of the L2 vertebral body. Type II degenerative endplate changes at L2-L3 most pronounced along the right ventral margin. Mild type I degenerative endplate changes along the dorsal midline and left dorsolateral margin of L3-L4. Chronic nondisplaced right L5 pars defect and questionable integrity of the left L5 pars interarticularis. Conus: Normal in signal and morphology terminating at the level of the mid L1 vertebral body. Soft tissues: The dorsal paraspinal soft tissues are within normal limits. The paravertebral soft tissues are unremarkable. Imaged portions of the intra-abdominal intrapelvic contents demonstrate no significant findings. T11-T12: Canal and foramina are patent. T12-L1: Canal and foramina are patent. L1-L2: Prominent epidural lipomatous tissue mild to moderately effacing the thecal sac, but otherwise no substantial superimposed spinal canal or neuroforaminal stenosis. L2-L3: Prominent epidural lipomatous tissue with superimposed disc bulge and endplate osteophyte formation with resultant severe effacement of the thecal sac. Endplate osteophyte formation and facet arthropathy contributes to no more than mild left and no substantial right foraminal stenosis. L3-L4: Prominent epidural lipomatous tissue with superimposed disc bulge, endplate osteophyte formation, and facet arthropathy contributing to severe effacement of the thecal sac and mild left and no substantial right foraminal stenosis. L4-L5: Prominent epidural lipomatous tissue with disc bulge, endplate osteophyte formation, facet arthropathy contributing to no more than mild thecal sac effacement and no more than mild bilateral foraminal stenosis. L5-S1: Prominent epidural lipomatous tissue in conjunction with disc bulge, endplate osteophyte formation, and facet arthropathy contributing to mild to moderate thecal sac effacement and moderate right and mild left foraminal stenosis. Sacrum and iliac wings: The visualized sacrum and iliac wings are within normal limits. The presacral soft tissues are normal in appearance. Localizer images: Circumscribed subcentimeter T2 hyperintense focus in the posterior right hepatic lobe suggesting a small cyst or hemangioma. IMPRESSION IMPRESSION: Subacute compression fracture deformity of the L1 ventral superior endplate with approximately 20% height loss and moderate generalized edema, but no convincing underlying pathologic marrow replacement. Diffuse lumbar epidural lipomatous hypertrophy with superimposed degenerative changes with resultant thecal sac narrowing being most pronounced and severe at L2-L3 and L3-L4. Neuroforaminal stenosis most pronounced and moderate in severity on the right at L5-S1. 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 Anatomic Thoracic/Lumbar Variant: None. L4-5 is considered the level of the iliac crest and assume there are 5 lumbar-type vertebrae. Package Winder: YAIR Transcribe Date/Time: Nov 19 2023 3:30P Dictated by : MECHELLE EDMONDSON MD This examination was interpreted and the report reviewed and electronically signed by: MECHELLE EDMONDSON MD on Nov 19 2023 3:44PM EST [facility] Radiology Study observation (narrative) [facility] MR Lumbar spine WO contrastO rdered By: [facility] Provider on 11-19-2023 [facility] ALLIED HEALTHon 09-02-2023 ALLIED HEALTH HNO ID: [id number] Author: ERMIAS SAMUELS RT(R) Service: Radiology Author Type: Technologist Type: Allied Health Filed: 09/02/2023 13:19 Note Text: Radiology Service Progress Note PATIENT NAME: Elis Bills DATE OF SERVICE: September 02, 2023 TIME: 1:16 PM PATIENT IDENTITY VERIFICATION COMPLETED USING TWO (2) IDENTIFIERS: Name and Date of confirmed by patient verbally and Name and Date of confirmed by identification band. FALL SCREENING: Has the patient had 2 falls in the last year or 1 fall with injury or currently using an Ambulatory Assistive Device (Walker, Cane, Wheelchair, Crutches, etc.)? No PATIENT GENDER DATA: Male PATIENT RELEVANT IMPLANT DATA REVIEWED: Yes PATIENT PRESENTS WITH AN IMPLANTABLE OR ATTACHED PROFILE TRIMMER: No RADIOLOGY DEPARTMENT: CT; Exam(s) Completed: Chest PERIPHERAL IV DATA: Not applicable SIGNED BY: RT hCyna(R) September 02, 2023 1:16 PM [facility] CT CHEST WO IVCONon 09-02-19 CT CHEST WO IVCON * * *Final Report* * * DATE OF EXAM: Sep 02 2023 1:21PM [facility] [place] - CT CHEST WO IVCON / PROCEDURE REASON: R06.2-Wheezing * * * * Physician Interpretation * * * * EXAMINATION: CHEST CT WITHOUT CONTRAST CLINICAL HISTORY: Wheezing Technique: Spiral CT acquisition of the chest from the thoracic inlet to the upper abdomen without contrast. MQ: CTCWO_6 CT Radiation dose: Integrated Dose-length product (DLP) for this visit = 402 mGy*cm CT Dose Reduction Employed: Automated exposure control(AEC) and iterative recon Comparison: Type of study and date/time RESULT: Lung parenchyma, airways, and pleural: No consolidation. Central airways are patent. There are multiple bilateral pulmonary nodules. Examples include (image numbers refer to series 301): 2 mm nodule lateral left upper lobe image 57. 3 mm nodule lateral right upper lobe image 82. 2 mm nodule lateral left upper lobe image 88. 3 mm nodule lateral right upper lobe image 97. 2 mm nodule posterolateral right lower lobe image 122. 3 mm nodule lateral left lower lobe image 142. No new or enlarging pulmonary nodule. Lower neck, lymph nodes, and mediastinum: The imaged thyroid gland is normal. No lymphadenopathy in the supraclavicular, axillary, mediastinal, or hilar regions. Heart, pericardium, and thoracic vessels: No pericardial effusion. Atherosclerotic calcification of the thoracic aorta and coronary arteries. Bones and soft tissues: Chest wall is unremarkable. Degenerative changes of the thoracic spine. Upper abdomen: No abnormality in the imaged upper abdomen. Auto Roller (topogram) images: No additional findings. IMPRESSION: No CT evidence of acute abnormality. _ Multiple 3 mm or less pulmonary nodules. Incidental Finding: Follow-up Acuity: Incidental Finding: Solid: <6 mm (solitary or multiple) Routing Code: N/A Recommendation: No imaging follow-up is recommended Time Frame: N/A Comments: If there are risk factors for lung malignancy, a follow-up chest CT exam could be obtained in 12 months --END OF FINDING-- Package Winder: YAIR Transcribe Date/Time: Sep 05 2023 11:40A Dictated by : WILLIAM QUINTANA MD This examination was interpreted and the report reviewed and electronically signed by: WILLIAM QUINTANA MD on Sep 05 2023 11:47AM EST [id number] N ACTIONABLE Invalid Interpretation Code [facility] NITRIC OXIDE, EXHALEDon 08-19 [facility] SPIROMETRY WITH DILATOR IF O BSTRUCTEDon 08-20-2023 AXJ05-33% PRE (L/S) 0.90 L/S [facility] FEV1 PRE (L) 1.70 L [facility] FEV1/FVC PRE (%) 70 % [facility] FVC PRE (L) 2.44 L [facility] PEF PRE (L/S) 5.67 L/S [facility] Chest PA and Lateralon 08-04 Chest PA and Lateral [facility] [address] [place] [address] Chest PA and Lateral MR#: [id number] Acct: [id number] Name: ELIS BILLS Rep #: [id number] : 1960 M 63 From: Fartun franco MD PCP: Dr. Pilar Steele DO Status: REG CLI Study: Chest PA and Lateral Date of Exam: 08/04/23 Exam# [id number] Ordering Dr: Pilar Steele DO [id number] HISTORY: SOB/COUGH/COPD/BRONCH ITIS. TECHNIQUE: XR Chest 2 Views. COMPARISON: None. FINDINGS: CARDIOMEDIASTINAL BORDERS: Cardiac silhouette within normal limits in size. Mediastinal contour unremarkable. LUNGS: Radiographically clear. PLEURA: No pleural effusion or pneumothorax seen. OSSEOUS STRUCTURES: Spinal osteophytes present. RAD/Chest PA and Lateral IMPRESSION: No acute cardiopulmonary process identified. Electronically Signed: Fartun Chicas MD at 13:23 EST Reading Location ID and State: [facility] / [place] Tel , Service support , CC: Dr. Pilar Steele DO Package Winder: Signed Normal [facility] Inital Evaluation (1) - PTon 05-14-2023 Inital Evaluation (1) - PT [facility] Physical Therapy [facility] [address] [place] [address] [address] [place] [address] / REHABILITATION SERVICES INITIAL EVALUATION MR#: [id number] Acct: [id number] Name: ELIS BILLS Rep #: [id number] : 1960 63 From: Flora Valerio PT, Cert. MDT Referring Dr.: Dr. Juarez Dewitt DO Status: G RCR Insurance: [facility] PACKAGE PLAN Patient's Visit Information Visit Information Visit Information: ELIS BILLS is a 63 year old M referred to Physical Therapy by Dr. Juarez Dewitt DO with a diagnosis of LUMBAR SPINAL STENOSIS AND SPONDYLOSIS. Date of Evaluation: 05/14/23 Physical Therapist: Flora Valerio PT, Cert MDT Visit Plan Frequency: 2-3x /Week Duration: 4-6 Weeks Plan: Neutral Spine Core Stability Exercises and Terrell LE Hip Flexor, Hamstring and Calf Stretching to help reduce stress to the Lumbar Spine with all Daily Activities. Instruction in Proper Posture Control, Body Mechanics and Appropriate Activity Modifications. HEP Instruction. 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 Disability: NO Present symptoms: LOW BACK PAIN. PATIENT DENIES LE SX'S. Present since: SUMMER 2022 Pain Scale: WORST 7/10, LEAST 0/10 Currently: 0/10 Is it getting better, worse or staying the same: STAYING THE SAME Commenced as a result of: NO APPARENT REASON Symptoms at onset: LOW BACK PAIN Worse: WORK, PROLONGED WALKING, Better: SITTING. USUALLY ONLY TAKES A FEW MINUTES THEN CAN GO AGAIN. Disturbed sleep: NO Previous history/Previous treatment: LOW BACK PAIN OVER THE YEARS. ONE TIME IT FELT LIKE SOMETHING SNAPPED IN MY BACK BUT GOT BETTER IN A WEEK OR SO WITHOUT GOING TO THE DOCTOR. USE TO GET ROOFERS BACK PAIN AND WOULD GO AWAY WITH TIME. I HAVE QUIT WEARING TOOL BAGS A COUPLE YEARS AGO. I WORE A TOOL BAG FOR 40 YEARS. CHIROPRACTIC IN BUT OTHERWISE JUST SELF TREATED. NO BACK SURGERY AND NO PRIOR BACK INJECTIONS. Treatment this episode: SAW PCP DR. STEELE - PRESCRIBED 9 DAY STEROIDS - HELPED A LOT. CURRENTLY ON MALOXACAM. CONSULT WITH [facility] - DR. DEWITT. MRI RECOMMENDED BUT PATIENT REFUSED. ALSO STATES HE WILL NOT HAVE SURGERY IF RECOMMENDED. REFERRED TO PAIN MGMT - DR. FINNEGAN AND ANASTASIA PENDING MAY 25 2023. Coughing/sneezing/str aining: SOMETIMES Gait: PAIN WITH WALKING TO A DEGREE WITH EVERY STEP BUT WORSE WITH WALKING ON UNEVEN SURFACES THAT ARE TYPICAL AT WORK. HAS TO SIT DOWN FREQUENTLY USUALLY DO TO LEGS MORE THAN BACK - I JUST NEED TO TAKE A BREAK. Bowel or Bladder Dysfunction: NO Accidents: NO Unexplained weight loss: NO Imaging: LUMBAR X-RAYS - SPINAL STENOSIS PER PATIENT REPORT. PMH/Recent major surgery: HTN, HIGH CHOLESTEROL, TERRELL THR Objective Objective: Sitting/Standing Posture: POOR. ANTERIOR PELVIC TILT. R ILIAC CREST HIGHER THAN LEFT. R LATERAL SHIFT AND SCOLIOTIC. Active Correction of posture: NE Other Observations: INDEP GAIT WITHOUT AD OR LOB. INDEP TRANSFER SIT TO STAND WITHOUT UE ASSIST. Sensory deficit: TERRELL LE LIGHT TOUCH SENSATION GROSSLY INTACT AND SYMMETRICAL ROM deficit: VERY TIGHT TERRELL HIP FLEXORS, HS'S AND GASTROC SOLEUS COMPLEX'S. TIGHT TERRELL HIP ROTATORS ESPECIALLY R HIP ER WHICH PATIENT REPORTS HAS BEEN THE CASE SINCE HIGH SCHOOL. Motor deficit: TERRELL HIPS 4-/5, KNEES 5/5, ANKLES 5/5. Dural Signs: NEGATIVE TERRELL LE'S. Lumbar mvmt loss: flex - MOD ext - MOD R SG - ADRIÁN L SG - ADRIÁN PATIENT C/O INCREASED LOW BACK PAIN WITH TERRELL SG TESTING BUT NW. Core strength: POOR Palpation: NO ACUTE LUMBAR TENDERNESS. INCREASED MUSCLE TONE TERRELL LUMBAR PARASPINALS. TREATMENT: NEUROMUSCULAR REEDUCATION - RETRAINING OF MVMT AND POSTURE FOR SITTING AND STANDING ACTIVITIES. PATIENT COMMUNICATED A GOOD UNDERSTANDING OF ALL INSTRUCTIONS GIVEN AND REPORTS AVOIDING OVER HEAD REACHING WILL BE HARD WITH WORK. Balance/Special Test Scores Oswestry Low Back Score: 11 Goals Goal 1:: Patient will be able to stand and walk for 30 minutes without increased symptoms/needing to sit down for increased work, ADL and Recreational tolerance. Goal Time Frame: 4-6 Weeks Goal 2:: Patient will have increased BLE and core strength increased by 1/2 grade of all effected musculature. Goal Time Frame: 4-6 Weeks Goal 3:: Patient will be Indep with a HEP for continued improvement once formal Physical Therapy concludes. Goal Time Frame: 4-6 Weeks Anticipated Interventions Patient/Client Instruction: Educate patient on: Condition, Plan of Care and Risk Factors For the Purpose of:: To improve self management Therapeutic Exercise to Include: Strength training, Body mechanics, Postural training, Flexibilty training, Neuromotor development and Dynamic Lumbar Stabilization For the Purpose of:: To decrease pain, To increase ROM, To improve muscle performance and motor function, To increase tolerance to activity/condition/po (more content not included)... Normal [facility] Automated blood hematocrit ( percentage)Ordered By: Pilar Steele on 02-20-2023 Hematocrit (Bld) [Volume fraction] 39.6 % Low 40-54 [facility] Comment on above: Performed By: #### L 501.9910, L500.4050, L502.0250, L100.0500, L500.4100 #### [facility] Laboratory [address] [place], [address] Basophil percentageOrdered B y: Pilar Steele on 02-20-2023 Bilirubin [Mass/Vol] 0.60 mg/dL Normal 0.20-1.00 [facility] Comment on above: For patients on eltr ombopag therapy, use of Dimension [place] TBIL is not recommended. Result Comment: For patients on eltrombopag therapy, use of Dimension [place] TBIL is not recommended. Performed By: #### L 501.9910, L500.4050, L502.0250, L100.0500, L500.4100 #### [facility] [address] [place], [address] Chloride [Moles/Vol] 101 mmol/L Normal 98-107 [facility] Comment on above: Performed By: #### L 501.9910, L500.4050, L502.0250, L100.0500, L500.4100 #### [facility] [address] [place], [address] Cholesterol [Mass/Vol] 89 mg/dL Normal 200 [facility] Comment on above: <200 mg/dL Desirable 200-240 mg/dL Borderline >240 mg/dL High Risk Result Comment: <200 mg/dL Desirable 200-240 mg/dL Borderline >240 mg/dL High Risk Performed By: #### L 501.9910, L500.4050, L502.0250, L100.0500, L500.4100 #### [facility] [address] [place], [address] Glucose [Mass/Vol] 102 mg/dL Normal 74-106 [facility] Comment on above: Fasting Glucose resu lt from 100 to 125 mg/dL suggests IMPAIRED HOMEOSTASIS per A.D.A. criteria. Result Comment: Fast ing Glucose result from 100 to 125 mg/dL suggests IMPAIRED HOMEOSTASIS per A.D.A. criteria. Performed By: #### L 501.9910, L500.4050, L502.0250, L100.0500, L500.4100 #### [facility] [address] [place], [address] Potassium [Moles/Vol] 4.7 mmol/L Normal 3.5-5.1 [facility] Comment on above: Performed By: #### L 501.9910, L500.4050, L502.0250, L100.0500, L500.4100 #### [facility] [address] [place], [address] Sodium [Moles/Vol] 135 mmol/L Low 136-145 [facility] Comment on above: Performed By: #### L 501.9910, L500.4050, L502.0250, L100.0500, L500.4100 #### [facility] [address] [place], [address] Triglyceride [Mass/Vol] 54 mg/dL Normal [facility] Comment on above: The drugs N-Acetylcy steine and Metamizole may falsely depress this assay.Serum Triglycerides Reference Interval Normal <150 mg/dL Borderline high 150 - 199 mg/dL High 200 - 499 mg/dL Very High > or = 500 mg/dL Result Comment: The drugs N-Acetylcysteine and Metamizole may falsely depress this assay. Serum Triglycerides Reference Interval Normal <150 mg/dL Borderline high 150 - 199 mg/dL High 200 - 499 mg/dL Very High > or = 500 mg/dL Performed By: #### L 501.9910, L500.4050, L502.0250, L100.0500, L500.4100 #### [facility] [address] [place], [address] WBC (Bld) [#/Vol] 7.7 10*3/uL Normal 4.4-11.0 [facility] Comment on above: Performed By: #### L 501.9910, L500.4050, L502.0250, L100.0500, L500.4100 #### [facility] [address] [place], [address] Protein [Mass/Vol] 7.3 g/dL 6.4-8.2 [facility] Blood erythrocytes count (nu mber/volume)Ordered By: Pilar Steele on 02-20-2023 RBC (Bld) [#/Vol] 4.46 10*6/uL Low 4.6-6.2 [facility] Comment on above: Performed By: #### L 501.9910, L500.4050, L502.0250, L100.0500, L500.4100 #### [facility] [address] [place], [place], [id number] Blood hemoglobin measurement (mass/volume)Ordered By: Pilar Steele on 02-20-2023 Hemoglobin (Bld) [Mass/Vol] 13.2 g/dL Normal 13.0-16.5 [facility] Comment on above: Performed By: #### L 501.9910, L500.4050, L502.0250, L100.0500, L500.4100 #### [facility] [address] [place], [place], [id number] Blood platelet mean volumeOr dered By: Pilar Steele on 02-20-2023 Platelet mean volume (Bld) [Entitic vol] 9.4 fL Normal 6.2-12.0 [facility] Comment on above: Performed By: #### L 501.9910, L500.4050, L502.0250, L100.0500, L500.4100 #### [facility] [address] [place], [place], [id number] CBC-Complete Blood Cnt No Di ffOrdered By: Pilar Steele on 02-20-2023 Erythrocyte distribution width (RBC) [Ratio] 13.8 % Normal 11.6-14.6 [facility] Comment on above: Performed By: #### L 501.9910, L500.4050, L502.0250, L100.0500, L500.4100 #### [facility] [address] [place], [address] MCH (RBC) [Entitic mass] 29.6 pg Normal 27.0-32.0 [facility] Comment on above: Performed By: #### L 501.9910, L500.4050, L502.0250, L100.0500, L500.4100 #### [facility] [address] [place], [address] CBC-Complete Blood Cnt No Di on 02-20-2023 RDW SD 44.9 fl High 35.1-43.9 [facility] Comment on above: Performed By: #### L 501.9910, L500.4050, L502.0250, L100.0500, L500.4100 #### [facility] [address] [place], [address] Comprehensive Metabolic Prof [facility] 02-20-2023 ALK P 71 U/L Normal 45-117 [facility] Comment on above: Performed By: #### L 501.9910, L500.4050, L502.0250, L100.0500, L500.4100 #### [facility] [address] [place], [address] AST [Catalytic activity/Vol] 17 U/L Normal 15-37 [facility] Comment on above: Performed By: #### L 501.9910, L500.4050, L502.0250, L100.0500, L500.4100 #### [facility] [address] [place], [address] BUN/CRE 12.3 RATIO Normal 10-20 [facility] Comment on above: Performed By: #### L 501.9910, L500.4050, L502.0250, L100.0500, L500.4100 #### [facility] [address] [place], [address] CA,Total 8.7 mg/dL Normal 8.5-10.1 [facility] Comment on above: Performed By: #### L 501.9910, L500.4050, L502.0250, L100.0500, L500.4100 #### [facility] [address] [place], [address] EST GFR - AA 99 mL/min Normal >60 [facility] Comment on above: Result Comment: Afri can Ghanaian GFR Calc Performed By: #### L 501.9910, L500.4050, L502.0250, L100.0500, L500.4100 #### [facility] [address] [place], [address] GAP 5 Normal 5-15 [facility] Comment on above: Performed By: #### L 501.9910, L500.4050, L502.0250, L100.0500, L500.4100 #### [facility] [address] [place], [place], [id number] GFR/1.73 sq M.predicted among non-blacks MDRD (S/P/Bld) [Vol rate/Area] 82 mL/min/{1.73_m2} Normal >60 [facility] Comment on above: Result Comment: Non- GFR Calc Performed By: #### L 501.9910, L500.4050, L502.0250, L100.0500, L500.4100 #### [facility] [address] [place], [address] T PROT 7.3 g/dL Normal 6.4-8.2 [facility] Comment on above: Performed By: #### L 501.9910, L500.4050, L502.0250, L100.0500, L500.4100 #### [facility] [address] [place], [address] Comprehensive Metabolic Prof ilOrdered By: Pilar Steele on 02-20-2023 ALT [Catalytic activity/Vol] 26 U/L Normal 16-61 [facility] Comment on above: Performed By: #### L 501.9910, L500.4050, L502.0250, L100.0500, L500.4100 #### [facility] Laboratory [address] [place], [address] CO2 [Moles/Vol] 29.0 mmol/L Normal 21.0-32.0 [facility] Comment on above: Performed By: #### L 501.9910, L500.4050, L502.0250, L100.0500, L500.4100 #### [facility] Laboratory [address] [place], [address] Globulin (S) [Mass/Vol] 3.6 g/dL Normal 2.2-4.2 [facility] Comment on above: Performed By: #### L 501.9910, L500.4050, L502.0250, L100.0500, L500.4100 #### [facility] Laboratory [address] [place], [address] Determination of erythrocyte mean corpuscular volume (MCV)Ordered By: Pilar Steele on 02-20-2023 MCV (RBC) [Entitic vol] 88.8 fL Normal 80-94 [facility] Comment on above: Performed By: #### L 501.9910, L500.4050, L502.0250, L100.0500, L500.4100 #### [facility] Laboratory [address] [place], [address] Laboratory - Chemistry and C hemistry - challengeOrdered By: Pilar Steele on 02-20-2023 ALP [Catalytic activity/Vol] 71 U/L 45-117 [facility] Urea nitrogen/Creatinine [Mass ratio] 12.3 mg/mg 10-20 [facility] Laboratory - Hematology and Cell countsOrdered By: Pilar Steele on 02-20-2023 Erythrocyte distribution width (RBC) [Entitic vol] 44.9 fL 35.1-43.9 [facility] MCHC [Mass/volume] by Automa ignacio countOrdered By: Pilar Steele on 02-20-2023 MCHC (RBC) [Mass/Vol] 33.3 g/dL Normal 32-36 [facility] Comment on above: Performed By: #### L 501.9910, L500.4050, L502.0250, L100.0500, L500.4100 #### [facility] Laboratory [address] [place], [address] Microalb:Creat Ratio,Random URon 02-20-2023 MALB:CRE Normal <30 mg/g CRE [facility] Comment on above: Result Comment: @[facility] IENT DID NOT WANT TO DO URINE Performed By: #### L 501.9910, L500.4050, L502.0250, L100.0500, L500.4100 #### [facility] Laboratory [address] [place], [place], [id number] MICROALBUMIN,UR Normal NO RANGE EST. [facility] Comment on above: Result Comment: @PAT IENT DID NOT WANT TO DO URINE Performed By: #### L 501.9910, L500.4050, L502.0250, L100.0500, L500.4100 #### [facility] Laboratory [address] [place], [address] UR CREAT Normal NO RANGE EST. [facility] Comment on above: Result Comment: @PAT IENT DID NOT WANT TO DO URINE Performed By: #### L 501.9910, L500.4050, L502.0250, L100.0500, L500.4100 #### [facility] Laboratory [address] [place], [address] No Panel InformationOrdered By: Pilar Steele on 02-20-2023 Estimated GFR (MDRD) Amer 99 mL/min >60 [facility] Comment on above: GFR Calc Estimated GFR (MDRD) Non-Af Amer 82 mL/min >60 [facility] Comment on above: Non- GFR Calc Prostate Specific Antigen Screen 0.77 ng/mL 0.00-4.00 [facility] Comment on above: This test was perfor med using the TPSA assay method for the[employer] chemistry system. Values obtained with differentassay methods cannot be used interchangably.When changing PSA assays in the course of monitoring apatient, additional sequential testing should be carriedout to confirm baseline values. PSA,Total - Annual Screenon 02-20-2023 PSA,TOT SCREEN 0.77 ng/mL Normal 0.00-4.00 [facility] Comment on above: Result Comment: This test was performed using the TPSA assay method for the [employer] chemistry system. Values obtained with different assay methods cannot be used interchangably. When changing PSA assays in the course of monitoring a patient, additional sequential testing should be carried out to confirm baseline values. Performed By: #### L 501.9910, L500.4050, L502.0250, L100.0500, L500.4100 #### [facility] Laboratory [address] [place], [address] Platelets bldOrdered By: Jeffrey Steele on 02-20-2023 Platelets (Bld) [#/Vol] 250 10*3/uL Normal 150-450 [facility] Comment on above: Performed By: #### L 501.9910, L500.4050, L502.0250, L100.0500, L500.4100 #### [facility] Laboratory [address] [place], [address] Serum or plasma albumin sidra urement (mass/volume)Ordered By: Pilar Steele on 02-20-2023 Albumin [Mass/Vol] 3.7 g/dL Normal 3.2-5.0 [facility] Comment on above: Performed By: #### L 501.9910, L500.4050, L502.0250, L100.0500, L500.4100 #### [facility] Laboratory [address] [place], [address] Serum or plasma albumin/glob ulin mass ratioOrdered By: Pilar Steele on 02-20-2023 Albumin/Globulin [Mass ratio] 1.0 {ratio} Normal 0.9-2.4 [facility] Comment on above: Performed By: #### L 501.9910, L500.4050, L502.0250, L100.0500, L500.4100 #### [facility] Laboratory [address] [place], [place], [id number] Serum or plasma calcium sidra urement (mass/volume)Ordered By: Pilar Steele on 02-20-2023 Calcium [Mass/Vol] 8.7 mg/dL 8.5-10.1 [facility] Serum or plasma cholesterol in HDL measurement (mass/volume)Ordered By: Pilar Steele on 02-20-2023 Cholesterol in HDL [Mass/Vol] 48 mg/dL Normal [facility] Comment on above: The drugs N-Acetylcy steine and Metamizole may falsely depress this assay. Reference Range HDL <40 mg/dL Low HDL Cholesterol HDL >or= 60 mg/dL High HDL Cholesterol Result Comment: The drugs N-Acetylcysteine and Metamizole may falsely depress this assay. Reference Range HDL <40 mg/dL Low HDL Cholesterol HDL >or= 60 mg/dL High HDL Cholesterol Performed By: #### L 501.9910, L500.4050, L502.0250, L100.0500, L500.4100 #### [facility] Laboratory [address] [place], [address] Serum or plasma cholesterol in VLDL measurement (mass/volume)Ordered By: Pilar Steele on 02-20-2023 Cholesterol in VLDL [Mass/Vol] 11 mg/dL Normal 5-40 [facility] Comment on above: Performed By: #### L 501.9910, L500.4050, L502.0250, L100.0500, L500.4100 #### [facility] Laboratory [address] [place], [address] Serum or plasma creatinine m easurement (mass/volume)Ordered By: Pilar Steele on 02-20-2023 Creatinine [Mass/Vol] 0.98 mg/dL Normal 0.70-1.30 [facility] Comment on above: The validity of the calculated GFR & GFRAA in patients over 70 years has not been determined. Clinical correlation is essential. Result Comment: The validity of the calculated GFR GFRAA in patients over 70 years has not been determined. Clinical correlation is essential. Performed By: #### L 501.9910, L500.4050, L502.0250, L100.0500, L500.4100 #### [facility] Laboratory [address] [place], [place], [id number] Serum or plasma low density lipoprotein (LDL) cholesterol measurement (mass/volume)Ordered By: Pilar Steele on 02-20-2023 Cholesterol in LDL [Mass/Vol] 30 mg/dL Normal 0-130 [facility] Comment on above: Performed By: #### L 501.9910, L500.4050, L502.0250, L100.0500, L500.4100 #### [facility] Laboratory [address] [place], [place], [id number] Serum or plasma urea nitroge n measurement (mass/volume)Ordered By: Pilar Steele on 02-20-2023 Urea nitrogen [Mass/Vol] 12 mg/dL Normal 7-18 [facility] Comment on above: Performed By: #### L 501.9910, L500.4050, L502.0250, L100.0500, L500.4100 #### [facility] Laboratory [address] [facility] [facility] [address] [place], [place], [address] Thin prep Papanicolaou smear with manual screeningOrdered By: Pilar Steele on 02-20-2023 Thin prep Papanicolaou smear with manual screening 17 U/L 15-37 [facility] Thin prep Papanicolaou smear with manual screening 5 5-15 [facility] Basophil percentageon 2021 Bilirubin [Mass/Vol] 0.60 mg/dL 0.20-1.00 [facility] Work Phone: Comment on above: For patients on eltr ombopag therapy, use of Dimension [place] TBIL is not recommended. Chloride [Moles/Vol] 102 mmol/L 98-107 [facility] Work Phone: Cholesterol [Mass/Vol] 86 mg/dL <200 [facility] Work Phone: Comment on above: <200 mg/dL Desirable 200-240 mg/dL Borderline >240 mg/dL High Risk Glucose [Mass/Vol] 98 mg/dL 74-106 [facility] Work Phone: Potassium [Moles/Vol] 4.3 mmol/L 3.5-5.1 [facility] Work Phone: Protein [Mass/Vol] 7.0 g/dL 6.4-8.2 [facility] Work Phone: Sodium [Moles/Vol] 134 mmol/L 136-145 [facility] Work Phone: Triglyceride [Mass/Vol] 51 mg/dL <199 [facility] Work Phone: Comment on above: The drugs N-Acetylcy steine and Metamizole may falsely depress this assay.Serum Triglycerides Reference Interval Normal <150 mg/dL Borderline high 150 - 199 mg/dL High 200 - 499 mg/dL Very High > or = 500 mg/dL Laboratory - Chemistry and C hemistry - challengeon 02-07-2022 ALP [Catalytic activity/Vol] 79 U/L 45-117 [facility] Work Phone: ALT [Catalytic activity/Vol] 30 U/L 16-61 [facility] Work Phone: CO2 [Moles/Vol] 27.0 mmol/L 21.0-32.0 [facility] Work Phone: Globulin (S) [Mass/Vol] 3.5 g/dL 2.2-4.2 [facility] Work Phone: Urea nitrogen/Creatinine [Mass ratio] 6.2 mg/mg 10-20 [facility] Work Phone: No Panel Informationon 02-07 Estimated GFR (MDRD) Amer 102 mL/min >60 [facility] Work Phone: Comment on above: GFR Calc Estimated GFR (MDRD) Non-Af Amer 84 mL/min >60 [facility] Work Phone: Comment on above: Non- GFR Calc Prostate Specific Antigen Screen 0.99 ng/mL 0.00-4.00 [facility] Work Phone: Comment on above: This test was perfor med using the TPSA assay method for [employer] chemistry system. Values obtained with differentassay methods cannot be used interchangably.When changing PSA assays in the course of monitoring apatient, additional sequential testing should be carriedout to confirm baseline values. Serum or plasma albumin sidra urement (mass/volume)on 02-07-2022 Albumin [Mass/Vol] 3.5 g/dL 3.2-5.0 [facility] Work Phone: Serum or plasma albumin/glob ulin mass ratioon 02-07-2022 Albumin/Globulin [Mass ratio] 1.0 {ratio} 0.9-2.4 [facility] Work Phone: Serum or plasma calcium sidra urement (mass/volume)on 02-07-2022 Calcium [Mass/Vol] 8.7 mg/dL 8.5-10.1 [facility] Work Phone: Serum or plasma cholesterol in HDL measurement (mass/volume)on 02-07-2022 Cholesterol in HDL [Mass/Vol] 41 mg/dL >40 [facility] Work Phone: Comment on above: The drugs N-Acetylcy steine and Metamizole may falsely depress this assay. Reference Range HDL <40 mg/dL Low HDL Cholesterol HDL >or= 60 mg/dL High HDL Cholesterol Serum or plasma cholesterol in VLDL measurement (mass/volume)on 02-07-2022 Cholesterol in VLDL [Mass/Vol] 10 mg/dL 5-40 [facility] Work Phone: Serum or plasma creatinine m easurement (mass/volume)on 02-07-2022 Creatinine [Mass/Vol] 0.96 mg/dL 0.70-1.30 [facility] Work Phone: Comment on above: The validity of the calculated GFR & GFRAA in patients over 70 years has not been determined. Clinical correlation is essential. Serum or plasma low density lipoprotein (LDL) cholesterol measurement (mass/volume)on 02-07-2022 Cholesterol in LDL [Mass/Vol] 35 mg/dL 0-130 [facility] Work Phone: Serum or plasma urea nitroge n measurement (mass/volume)on 02-07-2022 Urea nitrogen [Mass/Vol] 6 mg/dL 7-18 [facility] Work Phone: Thin prep Papanicolaou smear with manual screeningon 02-07-2022 Thin prep Papanicolaou smear with manual screening 17 U/L 15-37 [facility] Work Phone: Thin prep Papanicolaou smear with manual screening 5 5-15 [facility] Work Phone: Serum or plasma severe acute respiratory syndrome coronavirus 2 (SARS-CoV-2) IgG antion 01-31-2022 SARS-CoV-2 (COVID-19) IgG IA Ql See comment [facility] Work Phone: Comment on above: TEST RESULT LIMITSSA RS-CoV-2 Antibody, [id number] Semi- Quant IgG Ab A, 47.8 AU/mL Neg <13.0SARS-CoV-2 Cl Ab Interp A, PositiveAntibodies against the SARS-CoV-2 spike protein, including the receptor binding domain (RBD) were detected. It is not yet known what level of antibody to SARS-CoV-2 spike protein correlates to immunity against developing symptomatic SARS-CoV-2 disease.This assay was performed using [employer](R) SARS-CoV-2 Trimeric S IgG assay.CommentsA: This test has not been FDA cleared or approved. This test has been authorized by FDA under an Emergency Use Authorization (EUA). This test is onlyauthorized for the duration of the declaration that circumstances exist justifying the authorization of emergency use of in vitro diagnostics for detectionand/or diagnosis of COVID-19 under Section 564(b)(1) of the Act, 21 U.S.C. 360bbb-3(b)(1), unless the authorization is terminated or revoked sooner. Thistest has been authorized only for detecting the presence of antibodies against SARS-CoV-2, not for any other viruses or pathogens. ___ TESTING PERFORMED AT [facility]. ORIGINAL REPORT ON FILE IN LAB CONTAINS ADDITIONAL TEST SITE INFORMATION. .GFRon 12-30-2019 GFR 87 ml/min/1.73sqm Normal [facility] ([place]) Comment on above: Result Comment: GFR Population mean for , Non- Americans Ages 20-29 = 116 mL/min/1.73 sq.m. Ages 30-39 = 107 mL/min/1.73 sq.m. Ages 40-49 = 99 mL/min/1.73 sq.m. Ages 50-59 = 93 mL/min/1.73 sq.m. Ages 60-69 = 85 mL/min/1.73 sq.m. Ages 70+ = 75 mL/min/1.73 sq.m. Chronic Kidney Disease: Less than 60 mL/min/1.73 square meters End Stage Renal Disease: Less than 15 mL/min/1.73 square meters Performed By: #### L IPID, CMP, GFR #### [address] [place] [address] GFR Non- 72 ml/min/1.73sqm Normal [facility] ([place]) Comment on above: Result Comment: GFR Population mean for , Non- Americans Ages 20-29 = 116 mL/min/1.73 sq.m. Ages 30-39 = 107 mL/min/1.73 sq.m. Ages 40-49 = 99 mL/min/1.73 sq.m. Ages 50-59 = 93 mL/min/1.73 sq.m. Ages 60-69 = 85 mL/min/1.73 sq.m. Ages 70+ = 75 mL/min/1.73 sq.m. Chronic Kidney Disease: Less than 60 mL/min/1.73 square meters End Stage Renal Disease: Less than 15 mL/min/1.73 square meters Performed By: #### L IPID, CMP, GFR #### [address] [address] CMPon 12-30-2019 Albumin [Mass/Vol] 4.2 G/dL Normal 3.4-4.8 [facility] ([place]) Comment on above: Performed By: #### L IPID, CMP, GFR #### [address] [address] Albumin/Globulin [Mass ratio] 1.3 {ratio} Normal 1.1-2.5 [facility] ([place]) Comment on above: Performed By: #### L IPID, CMP, GFR #### [address] [address] ALP [Catalytic activity/Vol] 76 U/L Normal 40-135 [facility] ([place]) Comment on above: Performed By: #### L IPID, CMP, GFR #### [address] [address] ALT [Catalytic activity/Vol] 36 U/L High 10-35 [facility] ([place]) Comment on above: Performed By: #### L IPID, CMP, GFR #### [address] [address] AST [Catalytic activity/Vol] 22 U/L Normal 10-40 [facility] ([place]) Comment on above: Performed By: #### L IPID, CMP, GFR #### [address] [address] Bili Total 0.6 mg/dL Normal 0.2-1.0 [facility] ([place]) Comment on above: Result Comment: Use of this assay is not recommended for patients undergoing treatment with eltrombopag due to the potential for falsely elevated results. Performed By: #### L IPID, CMP, GFR #### [address] [address] Calcium [Mass/Vol] 8.9 mg/dL Normal 8.4-10.2 [facility] ([place]) Comment on above: Performed By: #### L IPID, CMP, GFR #### [address] [address] Chloride [Moles/Vol] 97 mmol/L Low 98-107 [facility] ([place]) Comment on above: Performed By: #### L IPID, CMP, GFR #### [address] [address] CO2 [Moles/Vol] 28 mmol/L Normal 23-31 [facility] ([place]) Comment on above: Performed By: #### L IPID, CMP, GFR #### [address] [address] Creatinine [Mass/Vol] 1.05 mg/dL Normal 0.70-1.30 [facility] ([place]) Comment on above: Performed By: #### L IPID, CMP, GFR #### [address] [address] Electrolyte Balance 8.0 mEq/L Normal [facility] ([place]) Comment on above: Performed By: #### L IPID, CMP, GFR #### [address] [address] Globulin (S) [Mass/Vol] 3.3 G/dL Normal [facility] ([place]) Comment on above: Performed By: #### L IPID, CMP, GFR #### [address] [address] Glucose [Mass/Vol] 99 mg/dL Normal 80-115 [facility] ([place]) Comment on above: Performed By: #### L IPID, CMP, GFR #### [address] [address] Potassium [Moles/Vol] 5.1 mmol/L Normal 3.5-5.1 [facility] ([place]) Comment on above: Performed By: #### L IPID, CMP, GFR #### [address] [address] Protein [Mass/Vol] 7.5 G/dL Normal 6.4-8.2 [facility] ([place]) Comment on above: Performed By: #### L IPID, CMP, GFR #### [address] [address] Sodium [Moles/Vol] 133 mmol/L Low 136-145 [facility] ([place]) Comment on above: Performed By: #### L IPID, CMP, GFR #### [address] [address] Urea nitrogen [Mass/Vol] 13 mg/dL Normal 7-18 [facility] ([place]) Comment on above: Performed By: #### L IPID, CMP, GFR #### [address] [address] Urea nitrogen/Creatinine [Mass ratio] 12 ratio Normal 7-27 [facility] ([place]) Comment on above: Performed By: #### L IPID, CMP, GFR #### [address] [address] LIPIDon 12-30-2019 Cholesterol [Mass/Vol] 111 mg/dL Normal 0-200 [facility] ([place]) Comment on above: Result Comment: Chol esterol Reference Interval: Less than 200 Desirable 200-239 Borderline high risk 240 and above High risk Performed By: #### L IPID, CMP, GFR #### [address] [address] Cholesterol in HDL [Mass/Vol] 54 mg/dL Normal 40-60 [facility] ([place]) Comment on above: Performed By: #### L IPID, CMP, GFR #### [address] [address] Cholesterol in LDL [Mass/Vol] 50 mg/dL Normal 0-130 [facility] ([place]) Comment on above: Performed By: #### L IPID, CMP, GFR #### [facility] [address] [place], [place] [address] Triglyceride [Mass/Vol] 35 mg/dL Normal 0-150 [facility] ([place]) Comment on above: Result Comment: Trig lyceride Reference Interval: Less than 150 Normal 150-199 Borderline high risk 200-499 High risk 500 or higher Very high risk Performed By: #### L IPID, CMP, GFR #### [address] [place], [place] [address] Vital Signs Date Time Vital Sign Value Performing Clinician Facility 01-08-2025 09:51-0400 Body mass index (BMI) [Ratio] 39.99 kg/m2 Veronica Butt 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 Work Phone: [facility] 01-08-2025 09:51-0400 Body weight 119.3 kg Veronica Butt 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-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 Work Phone: [facility] 01-08-2025 09:51-0400 Diastolic blood pressure 78 mm[Hg] Veronica Butt 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-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 [facility] 01-08-2025 09:51-0400 Heart rate 73 /min Veronica Johnny 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-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 [facility] 01-08-2025 09:51-0400 SaO2% (BldA) [Mass fraction] 95 % Veronica Butt 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-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 Work Phone: [facility] Comment on above: 01-08-2025 09:51-0400 Systolic blood pressure 128 mm[Hg] Veronica Butt 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-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 [facility] 12-02-2024 13:20-0400 Body temperature 98.01 [degF] Davie Carroll MD Work Phone: [facility] 12-02-2024 13:20-0400 Diastolic blood pressure 78 mm[Hg] Davie Carroll MD Work Phone: [facility] 12-02-2024 13:20-0400 Heart rate 70 /min Davie Carroll MD Work Phone: [facility] 12-02-2024 13:20-0400 Respiratory rate 19 /min Davie Carroll MD Work Phone: [facility] 12-02-2024 13:20-0400 SaO2% (BldA) [Mass fraction] 99 % Davie Carroll MD Work Phone: [facility] 12-02-2024 13:20-0400 Systolic blood pressure 159 mm[Hg] Davie Carroll MD Work Phone: [facility] 11-17-2024 14:08-0400 Body height 174 cm Anna Petruzzi PA-C Work Phone: [facility] 11-17-2024 14:08-0400 Body mass index (BMI) [Ratio] 40.38 kg/m2 Anna Petruzzi PA-C Work Phone: [facility] 11-17-2024 14:08-0400 Body temperature 98.49 [degF] Anna Petruzzi PA-C Work Phone: [facility] 11-17-2024 14:08-0400 Body weight 122.24 kg Anna Petruzzi PA-C Work Phone: [facility] 11-17-2024 14:08-0400 Diastolic blood pressure 67 mm[Hg] Anna Petruzzi PA-C Work Phone: [facility] 11-17-2024 14:08-0400 Heart rate 74 /min Anna Petruzzi PA-C Work Phone: [facility] 11-17-2024 14:08-0400 Respiratory rate 18 /min Anna Petruzzi PA-C Work Phone: [facility] 11-17-2024 14:08-0400 SaO2% (BldA) [Mass fraction] 96 % Anna Petruzzi PA-C Work Phone: [facility] 11-17-2024 14:08-0400 Systolic blood pressure 137 mm[Hg] Anna Sanders PA-C Work Phone: [facility] 10-26-2024 12:02-0400 Diastolic blood pressure 94 mm[Hg] Aura Wagner MD Work Phone: [facility] 10-26-2024 12:02-0400 Heart rate 83 /min Aura Wagner MD Work Phone: [facility] 10-26-2024 12:02-0400 Respiratory rate 31 /min Aura Wagner MD Work Phone: [facility] 10-26-2024 12:02-0400 SaO2% (BldA) [Mass fraction] 90 % Aura Wagner MD Work Phone: [facility] 10-26-2024 12:02-0400 Systolic blood pressure 158 mm[Hg] Aura Wagner MD Work Phone: [facility] 10-26-2024 12:00-0400 Body temperature 98.2 [degF] Aura Wagner MD Work Phone: [facility] 10-25-2024 00:00-0400 Body mass index (BMI) [Ratio] 39.56 kg/m2 Aura Wagner MD Work Phone: [facility] 10-25-2024 00:00-0400 Body weight 121.5 kg Aura Wagner MD Work Phone: [facility] 10-24-2024 20:56-0400 SaO2% (BldA) [Mass fraction] 98 % Aura Wagner MD Work Phone: [facility] 10-24-2024 19:42-0400 Body height 175.3 cm Aura Wagner MD Work Phone: [facility] 08-10-2024 13:00-0500 Body height 175.3 cm Lois Kee MD Work Phone: [facility] 08-10-2024 13:00-0500 Body mass index (BMI) [Ratio] 38.03 kg/m2 Lois Kee MD Work Phone: [facility] 08-10-2024 13:00-0500 Body weight 116.8 kg Lois Kee MD Work Phone: [facility] 08-10-2024 13:00-0500 Diastolic blood pressure 90 mm[Hg] Lois Kee MD Work Phone: [facility] 08-10-2024 13:00-0500 Heart rate 63 /min Lois Kee MD Work Phone: [facility] 08-10-2024 13:00-0500 SaO2% (BldA) [Mass fraction] 97 % Lois Kee MD Work Phone: [facility] 08-10-2024 13:00-0500 Systolic blood pressure 170 mm[Hg] Lois Kee MD Work Phone: [facility] 07-14-2024 13:00-0500 Body height 175.3 [address] P[address] 1 [facility] 07-14-2024 13:00-0500 Body mass index (BMI) [Ratio] 41.05 kg/m2 Pst 1 [facility] 07-14-2024 13:00-0500 Body temperature 97.5 [degF] Pst 1 [facility] 07-14-2024 13:00-0500 Body weight 126.1 kg Pst 1 [facility] 07-14-2024 13:00-0500 Diastolic blood pressure 80 mm[Hg] Pst 1 [facility] Comment on above: manual 07-14-2024 13:00-0500 Heart rate 68 /min [facility] [facility] 07-14-2024 13:00-0500 Respiratory rate 18 /min Pst 1 [facility] 07-14-2024 13:00-0500 SaO2% (BldA) [Mass fraction] 97 % Pst 1 [facility] 07-14-2024 13:00-0500 Systolic blood pressure 150 mm[Hg] Pst 1 [facility] Comment on above: manual 06-05-2024 09:08-0500 Body mass index (BMI) [Ratio] 44.71 kg/m2 Lois Kee MD Work Phone: [facility] 06-05-2024 09:08-0500 Body weight 129.5 kg Lois Kee MD Work Phone: [facility] 06-05-2024 09:08-0500 Diastolic blood pressure 84 mm[Hg] Lois Kee MD Work Phone: [facility] 06-05-2024 09:08-0500 Heart rate 72 /min Lois Kee MD Work Phone: [facility] 06-05-2024 09:08-0500 Respiratory rate 20 /min Lois Kee MD Work Phone: [facility] 06-05-2024 09:08-0500 SaO2% (BldA) [Mass fraction] 96 % Lois Kee MD Work Phone: [facility] 06-05-2024 09:08-0500 Systolic blood pressure 161 mm[Hg] Lois Kee MD Work Phone: [facility] 05-10-2024 08:16-0400 Diastolic blood pressure 67 mm[Hg] Everton Decker MD Work Phone: [facility] 05-10-2024 08:16-0400 Heart rate 69 /min Everton Decker MD Work Phone: [facility] 05-10-2024 08:16-0400 Respiratory rate 18 /min Everton Decker MD Work Phone: [facility] 05-10-2024 08:16-0400 SaO2% (BldA) [Mass fraction] 98 % Everton Decker MD Work Phone: [facility] 05-10-2024 08:16-0400 Systolic blood pressure 156 mm[Hg] Everton Decker MD Work Phone: [facility] 04-26-2024 08:23-0400 Diastolic blood pressure 98 mm[Hg] Everton Decker MD Work Phone: [facility] 04-26-2024 08:23-0400 Heart rate 68 /min Everton Decker MD Work Phone: [facility] 04-26-2024 08:23-0400 Respiratory rate 18 /min Everton Decker MD Work Phone: [facility] 04-26-2024 08:23-0400 SaO2% (BldA) [Mass fraction] 98 % Everton Decker MD Work Phone: [facility] 04-26-2024 08:23-0400 Systolic blood pressure 178 mm[Hg] Everton Decker MD Work Phone: [facility] 04-06-2024 09:11-0400 Body height 170.2 cm Lois Kee MD Work Phone: [facility] 04-06-2024 09:11-0400 Body mass index (BMI) [Ratio] 44.37 kg/m2 Lois Kee MD Work Phone: [facility] 04-06-2024 09:11-0400 Body weight 128.5 kg Lois Kee MD Work Phone: [facility] 04-06-2024 09:11-0400 Diastolic blood pressure 89 mm[Hg] Lois Kee MD Work Phone: [facility] 04-06-2024 09:11-0400 Heart rate 74 /min Lois Kee MD Work Phone: [facility] 04-06-2024 09:11-0400 Respiratory rate 18 /min Lois Kee MD Work Phone: [facility] 04-06-2024 09:11-0400 SaO2% (BldA) [Mass fraction] 98 % Lois Kee MD Work Phone: [facility] 04-06-2024 09:11-0400 Systolic blood pressure 154 mm[Hg] Lois Kee MD Work Phone: [facility] 03-16-2024 11:16-0400 Diastolic blood pressure 77 mm[Hg] Everton Decker MD Work Phone: [facility] 03-16-2024 11:16-0400 Heart rate 71 /min Everton Decker MD Work Phone: [facility] 03-16-2024 11:16-0400 Respiratory rate 18 /min Everton Decker MD Work Phone: [facility] 03-16-2024 11:16-0400 SaO2% (BldA) [Mass fraction] 97 % Everton Decker MD Work Phone: [facility] 03-16-2024 11:16-0400 Systolic blood pressure 178 mm[Hg] Everton Decker MD Work Phone: [facility] 12-21-2023 19:11-0400 Body height 170.2 cm Yashira Gonsales 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 Work Phone: [facility] 12-21-2023 19:11-0400 Body mass index (BMI) [Ratio] 43.54 kg/m2 Yashira Gonsales APRN.EXPORT 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 Work Phone: [facility] 12-21-2023 19:11-0400 Body weight 126.1 kg Yashira Gonsales APRN.EXPORT 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 Work Phone: [facility] 12-16-2023 10:56-0400 Diastolic blood pressure 89 mm[Hg] Dhiraj Herr MD Work Phone: [facility] 12-16-2023 10:56-0400 Heart rate 66 /min Dhiraj Herr MD Work Phone: [facility] 12-16-2023 10:56-0400 Respiratory rate 16 /min Dhiraj Herr MD Work Phone: [facility] 12-16-2023 10:56-0400 SaO2% (BldA) [Mass fraction] 97 % Dhiraj Herr MD Work Phone: [facility] 12-16-2023 10:56-0400 Systolic blood pressure 154 mm[Hg] Dhiraj Herr MD Work Phone: [facility] 11-11-2023 09:39-0400 Body height 170.2 cm Shelton Aguilera MD Work Phone: [facility] 11-11-2023 09:39-0400 Body mass index (BMI) [Ratio] 43.54 kg/m2 Shelton Aguilera MD Work Phone: [facility] 11-11-2023 09:39-0400 Body temperature 98.01 [degF] Shelton Aguilera MD Work Phone: [facility] 11-11-2023 09:39-0400 Body weight 126.1 kg Shelton Aguilera MD Work Phone: [facility] 11-11-2023 09:39-0400 Diastolic blood pressure 91 mm[Hg] Shelton Aguilera MD Work Phone: [facility] 11-11-2023 09:39-0400 Heart rate 75 /min Shelton Aguilera MD Work Phone: [facility] 11-11-2023 09:39-0400 Respiratory rate 20 /min Shelton Aguilera MD Work Phone: [facility] 11-11-2023 09:39-0400 SaO2% (BldA) [Mass fraction] 95 % Shelton Aguilera MD Work Phone: [facility] 11-11-2023 09:39-0400 Systolic blood pressure 163 mm[Hg] Shelton Aguilera MD Work Phone: [facility] 10-28-2023 10:03-0400 Diastolic blood pressure 94 mm[Hg] Dhiraj Herr MD Work Phone: [facility] 10-28-2023 10:03-0400 Heart rate 70 /min Dhiraj Herr MD Work Phone: [facility] 04-11-2024 10:03-0400 Respiratory rate 16 /min Dhiraj Herr MD Work Phone: [facility] 10-28-2023 10:03-0400 SaO2% (BldA) [Mass fraction] 96 % Dhiraj Herr MD Work Phone: [facility] 10-28-2023 10:03-0400 Systolic blood pressure 151 mm[Hg] Dhiraj Herr MD Work Phone: [facility] 09-23-2023 08:06-0500 Heart rate 74 /min Bertha Prebish 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 Work Phone: [facility] 09-23-2023 08:06-0500 Respiratory rate 20 /min Bertha Prebish 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 Work Phone: [facility] 09-23-2023 08:06-0500 SaO2% (BldA) [Mass fraction] 99 % Bertha Prebish 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 Work Phone: [facility] 03-22-2022 12:55-0400 Heart rate 84 /min [facility] Work Phone: 03-22-2022 12:55-0400 Respiratory rate 17 /min [facility] Work Phone: 03-22-2022 12:55-0400 SaO2% (BldA) [Mass fraction] 99 % [facility] Work Phone: 03-22-2022 11:13-0400 Body height 175.26 cm [facility] Work Phone: 03-22-2022 11:13-0400 Body mass index (BMI) [Ratio] 36 kg/m2 [facility] Work Phone: 03-22-2022 11:13-0400 Body temperature 97.4 [degF] [facility] Work Phone: 03-22-2022 11:13-0400 Body weight 110.7 kg [facility] Work Phone: 03-22-2022 11:13-0400 Diastolic blood pressure 77 mm[Hg] [facility] Work Phone: 03-22-2022 11:13-0400 Systolic blood pressure 160 mm[Hg] [facility] Work Phone: Encounters Encounter Date Encounter Type Care Provider Facility Start: 02-01-2025 End: 02-01-2025 Telephone encounter Veronica Butt [place] [facility] Comment on above: PFT Appt Start: 01-08-2025 End: 01-08-2025 Office outpatient visit 40 minutes Veronica Butt SE[employer]-EXPORT 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 Work Phone: [facility] Comment on above: Reactive airway dise ase without complication, unspecified asthma severity, unspecified whether persistent (HCC) (Primary Dx); Pulmonary nodule seen on imaging study; Environmental and seasonal allergies; Tobacco use disorder; Body mass index (BMI) 39.0-39.9, adult Start: 01-08-2025 End: 01-08-2025 ambulatory UNKNOWN PROVIDER Facility:[facility] Start: 12-25-2024 End: 12-25-2024 Letter encounter Malena Alejandro RN [facility] Start: 12-25-2024 End: 12-25-2024 Telephone encounter Malena Alejandro RN [facility] Comment on above: APPOINTMENT SCHEDULI NG Start: 12-07-2024 End: 12-07-2024 Evaluation and management of inpatient PROVIDER NON-EPICCARE Facility:[facility] Start: 12-02-2024 End: 12-02-2024 Emergency department patient visit Davie Carroll MD Work Phone: [facility] Emergency Medicine Comment on above: Headache (JIN x24 hrs w/ vision changes ) Start: 12-02-2024 ambulatory PROVIDER NON-EPICCARE Facility:[facility] Start: 12-02-2024 Emergency department patient visit PROVIDER NON-EPICCARE Facility:[facility] Start: 11-24-2024 End: 11-24-2024 ambulatory Brooke Wu RN [facility] Care Management/Patient Access Comment on above: COPD FU CALL-CONTACT REACHED Start: 11-17-2024 End: 11-18-2024 Office outpatient new 45 minutes Anna Sanders PA-C Work Phone: [facility] Comment on above: COPD exacerbation (H CC) (Primary Dx); 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 artery (HCC); Gastroesophageal reflux disease with esophagitis without hemorrhage Start: 11-17-2024 End: 11-18-2024 ambulatory Brooke Wu RN [facility] Care Management/Patient Access Comment on above: COPD FU CALL-UNABLE TO LEAVE MESSAGE Start: 11-01-2024 End: 11-01-2024 Telephone encounter Karthik Fried RT [facility] Comment on above: Pulm Rehab referral Start: 10-27-2024 End: 10-27-2024 ambulatory Brooke Wu RN [facility] Care Management/Patient Access Start: 10-27-2024 End: 10-27-2024 Follow-up encounter Brooke Wu RN [facility] Care Management/Patient Access Comment on above: Hospital follow-up; Transitional Care Management (COPD DC 10/26/24) Start: 10-26-2024 End: 10-26-2024 Orders Only Aura Wagner MD Work Phone: [facility] Pulmonary Start: 10-25-2024 End: 12-25-2024 Follow-up encounter [facility] Start: 10-24-2024 End: 10-26-2024 Evaluation and management of inpatient Aura Wagner MD Work Phone: [address] Comment on above: COPD exacerbation (H CC) (Primary Dx); 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 artery (HCC); Exacerbation of intermittent asthma, unspecified asthma severity (HCC); Difficulty walking; Decreased mobility and endurance Start: 10-24-2024 End: 10-24-2024 Emergency department patient visit PILAR STEELE Facility:[facility] Start: 10-24-2024 Evaluation and management of inpatient BRIAN AGNLIN Facility:[facility] Start: 09-12-2024 End: 09-12-2024 ambulatory Varun Pratt PT [facility] Comment on above: S/P lumbar laminecto my (Primary Dx) Start: 09-05-2024 End: 09-05-2024 Telephone encounter Lois Kee MD Work Phone: [facility] Start: 08-28-2024 End: 08-28-2024 Telephone encounter Lois Kee MD Work Phone: [facility] Comment on above: Internal Referrals/r esources Start: 08-25-2024 End: 08-25-2024 Orders Only Lois Kee MD Work Phone: [facility] Comment on above: S/P lumbar laminecto my (Primary Dx) Start: 08-10-2024 End: 08-10-2024 Postop follow up visit related to original px Lois Kee MD Work Phone: [facility] Comment on above: S/P lumbar laminecto my (Primary Dx) Start: 08-10-2024 End: 08-10-2024 ambulatory [facility] Facility[facility] Start: 08-02-2024 End: 08-02-2024 Refill Lois Kee MD Work Phone: [facility] Comment on above: Refill Request Start: 07-28-2024 End: 07-29-2024 Evaluation and management of inpatient [facility] Facility:[facility] Start: 07-27-2024 End: 07-27-2024 Telephone encounter Lois Kee MD Work Phone: [facility] Comment on above: Preparations For Sukhjinder jen Start: 07-20-2024 End: 07-21-2024 Telephone encounter Shelton Aguilera MD Work Phone: Pulmonary Medicine Comment on above: Medical Clearance Start: 07-17-2024 End: 07-17-2024 Telephone encounter Polly Mcfarlane APRN.EXPORT 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 Work Phone: [place] [facility] Start: 07-14-2024 End: 07-14-2024 Preprocedural examination done Pst 1 [facility] Work Phone: Start: 07-14-2024 End: 07-14-2024 Orders Only Lois Kee MD Work Phone: [facility] Comment on above: Spinal stenosis of l umbar region with neurogenic claudication (Primary Dx); Other specified abnormal findings of blood chemistry; Other abnormal findings in urine; Abnormal coagulation profile Pre-op examination ( Primary Dx); Spinal stenosis of lumbar region with neurogenic claudication; Obesity, Class III, BMI >= 40; COPD with acute exacerbation (HCC); Hyperlipidemia, unspecified hyperlipidemia type; Gastroesophageal reflux disease, unspecified whether esophagitis present; 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 artery (HCC); Nicotine use disorder; Hypertension, unspecified type; RBBB (right bundle branch block) Spinal stenosis of l umbar region with neurogenic claudication [M48.062] Start: 07-10-2024 Preprocedural examination done Lois Kee MD Work Phone: [facility] Start: 07-10-2024 Encounter for other preprocedural examination [facility] Start: 06-21-2024 End: 06-21-2024 Telephone encounter Lois Kee MD Work Phone: [facility] Comment on above: Preparations For Sukhjinder jen Start: 06-19-2024 End: 06-19-2024 Orders Only Lois Kee MD Work Phone: [facility] Comment on above: Spinal stenosis of l umbar region with neurogenic claudication (Primary Dx) Start: 06-08-2024 End: 06-08-2024 Telephone encounter Shelton Aguilera MD Work Phone: Pulmonary Medicine Comment on above: FYI-No Action Needed Start: 06-08-2024 End: 06-08-2024 ambulatory [facility] Facility:[facility] Start: 06-08-2024 End: 06-08-2024 Subsequent hospital visit by physician [facility] ([facility]) Work Phone: Cat Scan Start: 06-05-2024 End: 06-05-2024 Office outpatient visit 25 minutes Lois Kee MD Work Phone: [facility] Comment on above: Spinal stenosis of l umbar region with neurogenic claudication (Primary Dx) Start: 06-05-2024 End: 06-05-2024 ambulatory [facility] Facility[facility] Start: 06-05-2024 End: 06-05-2024 Subsequent hospital visit by physician [facility] [facility] [employer] [facility] Comment on above: Low back pain, unspe cified back pain laterality, unspecified chronicity, unspecified whether sciatica present [M54.50] Start: 05-31-2024 End: 05-31-2024 Telephone encounter Shelton Aguilera MD Work Phone: Pulmonary Medicine Comment on above: FYI-No Action Needed Start: 05-11-2024 End: 05-11-2024 ambulatory [facility] Start: 05-11-2024 End: 05-11-2024 Patient encounter procedure Bertha Schumacher APRN.EXPORT 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 Work Phone: [facility] Comment on above: APPOINTMENT CANCELLE D (Primary Dx) Start: 05-11-2024 End: 05-11-2024 Telemedicine consultation with patient Bertha Schumacher APRN.EXPORT 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 Work Phone: [facility] Start: 05-10-2024 End: 05-10-2024 Patient encounter procedure Everton Decker MD Work Phone: [facility] Start: 05-10-2024 End: 05-10-2024 ambulatory Everton Decker MD Work Phone: [facility] Comment on above: Injections (MBB); Ba ck Pain (LOWER BILATERAL) Start: 04-27-2024 End: 04-27-2024 Telemedicine consultation with patient Bertha Schumacher APRN.EXPORT 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 Work Phone: [facility] Start: 04-27-2024 End: 04-27-2024 ambulatory Bertha Schumacher APRNCoraEXPORT 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 Work Phone: [facility] Comment on above: Lumbar spondylosis ( Primary Dx); Spinal stenosis, lumbar region, without neurogenic claudication Start: 04-27-2024 End: 04-28-2024 Telephone encounter Guanaco Razo MD, PhD Work Phone: [facility] Comment on above: Erroneous encounter- disregard Start: 04-26-2024 End: 04-26-2024 Patient encounter procedure Everton Decker MD Work Phone: [facility] Start: 04-26-2024 End: 04-26-2024 ambulatory Everton Decker MD Work Phone: [facility] Comment on above: Procedure (MBB) Start: 04-06-2024 End: 04-06-2024 Office outpatient new 45 minutes Lois Kee MD Work Phone: [facility] Comment on above: Low back pain, unspe cified back pain laterality, unspecified chronicity, unspecified whether sciatica present (Primary Dx) Start: 04-06-2024 End: 04-06-2024 ambulatory [facility] Facility:[facility] Start: 04-05-2024 End: 04-05-2024 E-mail encounter from caregiver Lois Kee MD Work Phone: [facility] Start: 04-05-2024 End: 04-05-2024 Patient encounter procedure Lois Kee MD Work Phone: [facility] Comment on above: xrays for upcoming a ppointment Start: 03-31-2024 End: 03-31-2024 Telephone encounter Dhiraj Herr MD Work Phone: [facility] Comment on above: injection questions Start: 03-30-2024 End: 03-30-2024 Telephone encounter Dhiraj Herr MD Work Phone: [facility] Comment on above: Appointment Start: 03-30-2024 End: 03-30-2024 Telemedicine consultation with patient Bertha Schumacher APRN.EXPORT 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 Work Phone: [facility] Start: 03-30-2024 End: 03-30-2024 ambulatory Bertha Schumacher APRN.EXPORT 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 Work Phone: [facility] Comment on above: Lumbar spondylosis ( Primary Dx); Lumbar radiculopathy; Spinal stenosis, lumbar region, without neurogenic claudication Start: 03-17-2024 End: 03-17-2024 Telephone encounter Everton Decker MD Work Phone: [facility] Comment on above: Procedure Follow Up Start: 03-16-2024 End: 03-16-2024 Telephone encounter Bertha Schumacher APRN.EXPORT 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 Work Phone: [facility] Comment on above: Orders Start: 03-16-2024 End: 03-16-2024 Patient encounter procedure Everton Decker MD Work Phone: [facility] Start: 03-16-2024 End: 03-16-2024 ambulatory Everton Decker MD Work Phone: [facility] Comment on above: Procedure Start: 03-15-2024 End: 03-15-2024 Telephone encounter Everton Decker MD Work Phone: [facility] Comment on above: Patient Question Start: 03-13-2024 End: 03-13-2024 Telephone encounter Yashira Gonsales APRN.EXPORT 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 Work Phone: [facility] Comment on above: Insurance Denial Start: 02-25-2024 Telephone encounter Bertha rese APRN.EXPORT 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 Work Phone: [facility] Comment on above: Appointment anticoagulation marta er Injections (question s) Start: 02-24-2024 End: 02-24-2024 Telemedicine consultation with patient Bertha Vincent ESTRADA.EXPORT 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 Work Phone: [facility] Start: 02-24-2024 End: 02-24-2024 ambulatory Bertha Childssh 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 Work Phone: [facility] Comment on above: Lumbar spondylosis ( Primary Dx); Spinal 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; Chronic bilateral low back pain with sciatica, sciatica laterality unspecified Start: 01-24-2024 ambulatory Bertha Catherinesh 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 Work Phone: [facility] Comment on above: Denial of Medical Se rvice Start: 01-17-2024 Telephone encounter Shelton Aguilera MD Work Phone: Pul[facility] Comment on above: Illness ([place] RN covering urgent pulm sypmtom calls) Start: 01-16-2024 End: 01-16-2024 Letter encounter [facility] Start: 01-11-2024 Refill Shelton Aguilera MD Work Phone: Pulmonary Medicine Comment on above: Refill Request Start: 01-06-2024 Refill Shelton Aguilera MD Work Phone: Pulmonary Medicine Comment on above: Refill Request Start: 01-03-2024 Telephone encounter Alen raza MD Work Phone: Pulmonary Medicine Comment on above: Results Start: 12-29-2023 [facility] Start: 12-29-2023 End: 12-29-2023 Subsequent hospital visit by physician [facility] Work Phone: [facility] Comment on above: Lung nodules [R91.8] Start: 12-22-2023 End: 12-22-2023 Telemedicine consultation with patient Yashira Gonsales 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 Work Phone: [facility] Start: 12-22-2023 End: 12-22-2023 ambulatory Yashira Gonsales 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 Work Phone: [facility] Comment on above: Lumbar spondylosis ( Primary Dx) Start: 12-17-2023 Telephone encounter Dhiraj Herr MD Work Phone: [facility] Comment on above: Procedure Follow Up (MBB) Start: 12-16-2023 End: 12-16-2023 Patient encounter procedure Dhiraj Herr MD Work Phone: [facility] Start: 12-16-2023 End: 12-16-2023 ambulatory Dhiraj Herr MD Work Phone: [facility] Comment on above: Procedure (Mbb ); Ba ck Pain (Lower - bilateral - right is worse) Start: 12-14-2023 Telephone encounter Bertha rees 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 Work Phone: [facility] Comment on above: Insurance Denial Start: 12-10-2023 Orders Only Shelton Aguilera MD Work Phone: Pulmonary Medicine Comment on above: Severe persistent as thma, unspecified whether complicated (Primary Dx) Start: 12-01-2023 End: 12-02-2023 ambulatory [facility] Facility[facility] Start: 11-29-2023 ambulatory Bertha Prebish 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 Work Phone: [facility] Start: 11-29-2023 Patient encounter procedure Bertha Prebish 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 Work Phone: [facility] Comment on above: Appointment Start: 11-25-2023 End: 11-25-2023 Telemedicine consultation with patient Bertha Prebish 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 Work Phone: [facility] Start: 11-25-2023 End: 11-25-2023 ambulatory Bertha Prebish 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 Work Phone: [facility] Comment on above: Lumbar spondylosis ( Primary Dx); Spinal 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 Start: 11-22-2023 ambulatory [facility] Comment on above: Home Sleep Study Start: 11-22-2023 E-mail encounter raya m caregiver [facility] Start: 11-21-2023 Telephone encounter Bertha rees 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 Work Phone: [facility] Start: 11-19-2023 End: 11-19-2023 Subsequent hospital visit by physician [facility] Andres (I-Stat/1.5t) Radiology Comment on above: Spinal stenosis of l umbar region without neurogenic claudication [M48.061] Start: 11-11-2023 E-mail encounter raya saunders caregiver Pilar Pitts PA-C Work Phone: Radiology Start: 11-11-2023 Follow-up encounter Pilar delacruz PA-C Work Phone: Radiology Comment on above: Actionable Findings Follow-Up Start: 11-11-2023 End: 11-11-2023 Patient encounter procedure Shelton Aguilera MD Work Phone: Pulmonary Medicine Comment on above: Lung nodules (Primar y Dx); Severe persistent asthma, unspecified whether complicated; Tobacco use disorder; Morbid obesity (HCC) Start: 10-29-2023 End: 10-29-2023 ambulatory Bertha Schumacher SEAN.EXPORT 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 Work Phone: [facility] Comment on above: Lumbar spondylosis ( Primary Dx); Chronic bilateral low back pain with sciatica, sciatica laterality unspecified; Spinal 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 Start: 10-29-2023 End: 10-29-2023 Telemedicine consultation with patient Bertha Schumacher APRN.EXPORT 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 Work Phone: [facility] [phone] Start: 10-28-2023 End: 10-28-2023 ambulatory Dhiraj Herr MD Work Phone: [facility] Comment on above: Procedure (MBNB L4/L 5 S1) Start: 10-28-2023 End: 10-28-2023 Patient encounter procedure Dhiraj Herr MD Work Phone: [place] [facility] Start: 10-19-2023 Refill Shelton Aguilera MD Work Phone: Pulmonary Medicine Comment on above: Refill Request Start: 10-11-2023 Refill Shelton Aguilera MD Work Phone: Pulmonary Medicine Comment on above: Refill Request Start: 09-28-2023 ambulatory Bertha Schumacher 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 Work Phone: [facility] Comment on above: Prednisone for pain relief Start: 09-23-2023 Telephone encounter Berthasandrine rees 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 Work Phone: [facility] Comment on above: Injection Questions Start: 09-23-2023 End: 09-23-2023 Office outpatient new 45 minutes Bertha Schumacher 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 Work Phone: [facility] Comment on above: Lumbar spondylosis ( Primary Dx); Chronic bilateral low back pain with sciatica, sciatica laterality unspecified Start: 09-02-2023 ambulatory UNKNOWN PROVIDER Facili ty:[facility] Start: 09-02-2023 End: 09-02-2023 Subsequent hospital visit by physician Ct [facility] Radiology Comment on above: Wheezing [R06.2] Start: 09-02-2023 End: 09-02-2023 ambulatory [facility] Work Phone: Pulmonary Medicine Comment on above: Spirometry Start: 09-02-2023 End: 09-02-2023 Patient encounter procedure Pulm Fct Lab [facility] Work Phone: [facility] Start: 08-26-2023 Telephone encounter Shelton Aguilera MD Work Phone: Pulmonary Medicine Comment on above: Results Start: 08-24-2023 Telephone encounter Shelton Aguilera MD Work Phone: Pulmonary Medicine Comment on above: FYI-No Action Needed Results Start: 08-20-2023 Telephone encounter Shelton Aguilera MD Work Phone: Pulmonary Medicine Comment on above: FYI-No Action Needed Start: 08-20-2023 End: 08-20-2023 ambulatory [facility] Work Phone: Pulmonary Medicine Comment on above: Spirometry Start: 08-20-2023 End: 08-20-2023 Patient encounter procedure Pulm Lab [place] Work Phone: [facility] [place] [facility] Start: 08-04-2023 End: 08-04-2023 ambulatory [facility] Work Phone: Start: 08-04-2023 End: 08-04-2023 Patient encounter procedure [facility]Rad[facility], [facility] Work Phone: Start: 06-11-2023 End: 06-11-2023 ambulatory Juarez Dewitt Facility:[facility] Start: 06-11-2023 Registered [facility] Work Phone: Start: 02-24-2023 Encounter for genera l adult medical examination without abnormal findings [facility] Start: 02-20-2023 End: 02-20-2023 ambulatory [facility] Work Phone: Start: 02-20-2023 End: 02-20-2023 Patient encounter procedure [facility]Labor[facility] Work Phone: Start: 10-26-2022 Letter encounter [facility] Start: 03-22-2022 End: 03-22-2022 Emergency department patient visit [facility]Emergency Department Start: 02-07-2022 End: 02-07-2022 Patient encounter procedure [facility] Start: 01-31-2022 End: 01-31-2022 Patient encounter procedure [facility] Start: 10-20-2021 Letter encounter [facility] Procedures Date Procedure Procedure Detail Performing Clinician Start: 01-08-2025 Assay of gammaglobulin ige Veronica Butt APRN-EXPORT 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 Work Phone: Start: 01-08-2025 Inhaled allergen mix RAST Veronica Butt APRN-EXPORT 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 Work Phone: Start: 12-02-2024 Ct angiography head w/contrast/noncontrast Padmini Fisher MD Work Phone: Start: 12-02-2024 Radiologic exam ches t 2 views Elvis Rodriguez MD Work Phone: Start: 12-02-2024 C-reactive protein Padmini Fisher MD Work Phone: Start: 12-02-2024 End: 12-02-2024 Sedimentation rate rbc non-automated Padmini Fisher MD Work Phone: Start: 10-26-2024 CARD REHAB ADT Dhiraj Kulkarni MD Work Phone: Start: 10-26-2024 Assay of magnesium Valentina Dumont MD Work Phone: Start: 10-25-2024 Smr prim src gram/gi emsa stain bct fungi/cell Dhiraj Ron MD Work Phone: Start: 10-25-2024 Assay of magnesium Valentina Dumont MD Work Phone: Start: 10-24-2024 RED/YELLOW TOP TUBE, URINE Aura Wagner MD Work Phone: Start: 10-24-2024 Hemoglobin glycosylated a1c Valentina Dumont MD Work Phone: Start: 10-24-2024 Hepatic function panel Valentina Dumont MD Work Phone: Start: 10-24-2024 Urnls dip stick/tabl et rgnt auto w/o microscopy Valentina Dumont MD Work Phone: Start: 10-24-2024 Blood gases any comb ination ph pco2 po2 co2 hco3 Valentina Dumont MD Work Phone: Start: 10-24-2024 Radiologic exam ches t single view Valentina Dumont MD Work Phone: Start: 07-14-2024 Antibody screen BERTHA [facility] Comment on above: Order Comment: Speci men Type: BLOOD SPECIMEN Ordering Facility: [facility] Address: [address] [place] [id number] Performed By: #### T [id number] #### [facility] CLIA [id number] [address] [place] [address] [place] Start: 06-08-2024 Ct thorax w/o contra st material [facility] Provider Start: 12-29-2023 Echo tthrc r-t 2d w/wom-mode compl spec&colr d Shelton Aguilera MD Work Phone: Start: 11-19-2023 Mri spinal canal lum bar w/o contrast material Bertha Schumacher 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 Work Phone: Start: 09-02-2023 Nitric oxide gas determination Shelton Aguilera MD Work Phone: Start: 09-02-2023 Co diffusing capacity J mounika Aguilera MD Work Phone: Start: 08-20-2023 Brncdilat rspse spmt ry pre&post-brncdilat admn Shelton Aguilera MD Work Phone: Start: 08-04-2023 Plain chest X-ray Start: 03-22-2022 Plain x-ray of hand Start: 03-22-2022 Plain x-ray of wrist Start: 04-24-2019 Lipid 1996 panel - S tara or Plasma [facility] Work Phone: Plan of Treatment Date Care Activity Detail Author Start: 06-14-2033 Tetanus vaccination Tetanus (Td or Tdap) Booster [facility] Start: 06-14-2033 Urine microalbumin profile DTaP,Tdap,Td Vaccine (2 - Td or Tdap) [facility] Start: 02-21-2028 Lipid panel Cholesterol [facility] Start: 10-26-2027 Diabetes Screening Diabetes Screening [facility] Start: 07-29-2027 Diabetes Screening Diabetes Screening [facility] Start: 07-14-2027 Diabetes Screening Diabetes Screening [facility] Start: 12-01-2026 Diabetes Screening Diabetes Screening [facility] Start: 10-24-2025 Hemoglobin A1c measurement Hemoglobin A1C [facility] Start: 07-23-2025 End: 07-23-2025 Patient encounter procedure 07/23/2025 8:20 AM EST Office Visit [facility] Pulmonary [address] [place] [address] Veronica Butt APRN-EXPORT 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 [address] [place] [address] [facility] Pulmonary Start: 05-21-2025 End: 05-21-2025 Patient encounter procedure 05/21/2025 8:00 AM EST Appointment [facility] Radiology CT [address] [place] [address] [facility] Radiology CT Start: 05-19-2025 End: 01-08-2026 CT Chest WO contrast CT CHEST W/O CONTRAST Imaging Routine Pulmonary nodule seen on imaging study Expected: 05/19/2025 (Approximate), Expires: 01/08/2026 [facility] Work Phone: Comment on above: Expected: 05/19/2025 (Approximate), Expi res: 01/08/2026 Start: 04-18-2025 Influenza vaccination Influenza Vaccine (#1) [facility] Start: 03-19-2025 Influenza vaccination Influenza Vaccine (Season Ended) [facility] Start: 02-02-2025 End: 02-02-2025 Professional / ancillary services management 02/02/2025 8:00 AM EDT Pulmonary Ancillary Visit [facility] Pulmonary Labs [address] [place] [address] [facility] Pulmonary Labs Start: 01-18-2025 End: 01-18-2025 Patient encounter procedure 01/18/2025 9:40 AM EDT Office Visit [facility] Medicine [address] [place] [address] Anan Sanders PA-C [address] [place] [address] [facility] Medicine Start: 01-08-2025 End: 01-08-2025 Patient encounter procedure 01/08/2025 10:20 AM EDT Office Visit [facility] Pulmonary [address] [place] [address] Veronica Butt APRN-EXPORT 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 [address] [place] [address] [facility] Pulmonary Start: 11-17-2024 End: 11-17-2024 Patient encounter procedure 11/17/2024 2:00 PM EDT Office Visit [facility] [address] [place] [address] Anna Sanders PA-C [address] [place] [address] [facility] Start: 10-24-2024 Welcome to Medicare Visit (G0402) Welcome to Medicare Visit (G0402) [facility] Start: 10-19-2024 End: 10-19-2024 Patient encounter procedure [facility] Comment on above: S/P lumbar laminectomy [Z98.890] Start: 09-18-2024 End: 09-18-2024 Patient encounter procedure 09/18/2024 9:15 AM EST Office Visit [place] [id number] [place] [address] Lois Kee MD [address] [place] [address] post op [facility] Comment on above: post op Start: 09-14-2024 End: 09-14-2024 Patient encounter procedure 09/14/2024 2:15 PM EST Office Visit [address] [facility] [place] [address] Lois Kee MD [address] [place] [address] post op [facility] Comment on above: post op Start: 09-12-2024 End: 09-12-2024 ambulatory 09/12/2024 8:30 AM EST OT/PT/Speech Visit [place] [facility] Physical Therapy [address] [place] [address] Varun Pratt, PT [address] [facility] [place] [address] S/P lumbar laminectomy [Z98.890 [facility] Physical Therapy Comment on above: S/P lumbar laminectomy [Z98.890 Start: 08-10-2024 End: 08-10-2024 Patient encounter procedure 08/10/2024 1:00 PM EST Office Visit [address] [place] [address] Lois Kee MD [address] [place], [place] [address] [place] [address] post op [facility] Comment on above: post op Start: 07-28-2024 End: 07-28-2024 Admission to same day surgery center 07/28/2024 10:45 AM EST - 07/28/2024 1:30 PM EST Surgery [place] [facility] [place] [address] [facility] [place] [address] Lois Kee MD [address] [facility] [place] [address] DECOMPRESSION LAMINECTOMY LUMBAR POSTERIOR LEVEL 1 [place] [facility] OR Comment on above: DECOMPRESSION LAMINECTOMY LUMBAR POSTERI OR LEVEL 1 Start: 07-28-2024 End: 07-28-2024 Yap facetectomy & foramotomy 1 segment lumbar DECOMPRESSION LAMINECTOMY LUMBAR POSTERIOR LEVEL 1 Spinal stenosis of lumbar region with neurogenic claudication 07/28/2024 10:45 AM EST [place] OR Start: 07-28-2024 End: 07-28-2024 Yap facetectomy&foramtomy 1 sgm ea crv thrc/lmbr DECOMPRESSION LAMINECTOMY 1ST ADD'L LUMBAR SEGMENT Spinal stenosis of lumbar region with neurogenic claudication 07/28/2024 10:45 AM EST [place] OR Start: 07-28-2024 Subsequent hospital visit by physician 07/28/2024 10:45 AM EST Hospital Encounter [place] [facility] 1 [facility] [place] [address] Lois Kee MD [address] [place] [address] Spinal stenosis of lumbar region with neurogenic claudication [M48.062] [facility] Comment on above: Spinal stenosis of lumbar region with ne urogenic claudication [M48.062] Start: 07-19-2024 Advance Directive Discussion Advance Directive Discussion [facility] Start: 07-14-2024 End: 10-13-2024 aPTT in Platelet poor plasma by Coagulation assay ACTIVATED PARTIAL THROMBOPLASTIN TIME Lab Routine Spinal stenosis of lumbar region with neurogenic claudication Abnormal coagulation profile Expected: 07/14/2024, Expires: 10/13/2024 [facility] Comment on above: Expected: 07/14/2024, Expires: Start: 07-14-2024 End: 10-13-2024 Bacteria identified in Urine by Culture URINE CULTURE Microbiology Routine Spinal stenosis of lumbar region with neurogenic claudication Other abnormal findings in urine Expected: 07/14/2024, Expires: 10/13/2024 [facility] Comment on above: Expected: 07/14/2024, Expires: Start: 07-14-2024 End: 10-13-2024 CBC panel - Blood by Automated count COMPLETE BLOOD COUNT Lab Routine Spinal stenosis of lumbar region with neurogenic claudication Other specified abnormal findings of blood chemistry Expected: 07/14/2024, Expires: 10/13/2024 [facility] Comment on above: Expected: 07/14/2024, Expires: Start: 07-14-2024 End: 10-13-2024 Comprehensive metabolic 2000 panel - Serum or Plasma COMPREHENSIVE METABOLIC PANEL Lab Routine Spinal stenosis of lumbar region with neurogenic claudication Expected: 07/14/2024, Expires: 10/13/2024 [facility] Comment on above: Expected: 07/14/2024, Expires: Start: 07-14-2024 End: 10-13-2024 PT panel - Platelet poor plasma by Coagulation assay PROTHROMBIN TIME Lab Routine Spinal stenosis of lumbar region with neurogenic claudication Abnormal coagulation profile Expected: 07/14/2024, Expires: 10/13/2024 [facility] Comment on above: Expected: 07/14/2024, Expires: Start: 07-14-2024 End: 10-13-2024 STAPHYLOCOCCUS AUREUS & MRSA SCREEN, PCR, NASAL STAPHYLOCOCCUS AUREUS & MRSA SCREEN, PCR, NASAL Lab Routine Spinal stenosis of lumbar region with neurogenic claudication Expected: 07/14/2024, Expires: 10/13/2024 [facility] Comment on above: Expected: 07/14/2024, Expires: Start: 07-14-2024 End: 10-13-2024 TYPE AND SCREEN,30 DAY TYPE AND SCREEN,30 DAY Blood Bank Routine Spinal stenosis of lumbar region with neurogenic claudication Expected: 07/14/2024, Expires: 10/13/2024 [facility] Comment on above: Expected: 07/14/2024, Expires: Start: 07-14-2024 End: 10-13-2024 Urinalysis complete panel - Urine URINALYSIS, WITH MICROSCOPIC Lab Routine Spinal stenosis of lumbar region with neurogenic claudication Expected: 07/14/2024, Expires: 10/13/2024 [facility] Comment on above: Expected: 07/14/2024, Expires: Start: 07-14-2024 End: 07-14-2024 ambulatory 07/14/2024 1:00 PM EST PAT Pre Surgical Testing [address] [place] [address] L2-L4 Laminectomy Pre Surgical Testing Comment on above: L2-L4 Laminectomy Start: 06-08-2024 End: 06-08-2024 Patient encounter procedure 06/08/2024 8:00 AM EST Appointment Cat Scan [address] [place] [address] CT chest w/o in scanned docs Cat Scan Comment on above: CT chest w/o in scanned docs Start: 06-06-2024 End: 06-06-2024 Patient encounter procedure [facility] [employer] Comment on above: XR LUMBAR 2 MO F/U Start: 06-05-2024 End: 06-05-2024 Patient encounter procedure [facility] [employer] [employer] Comment on above: XR LUMBAR 2 MO F/U XR LUMBAR AP/LAT/FLE X/EXT Start: 05-11-2024 End: 05-11-2024 Follow-up encounter 05/11/2024 3:15 PM EDT [facility] [address] [place] [address] Bertha Schumacher APRN.EXPORT 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 [address] [place] [address] MBB follow up 2 of 2 [facility] Comment on above: MBB follow up 2 of 2 Start: 05-10-2024 End: 05-10-2024 ambulatory [facility] Comment on above: B/L MBNB L3-L4, L4-L5, w fluoro Medial Branch Block (Diagnostic only, NO STEROIDS) under fluoroscopic guidance BILATERAL SIDES at L3-4 and L4-5 (2 OF 2) Start: 04-27-2024 End: 04-27-2024 Follow-up encounter 04/27/2024 3:15 PM EDT [facility] [address] [place] [address] Bertha Schumacher APRN.EXPORT 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 [address] [place] [address] MBB follow up 1 of 2 [facility] Comment on above: MBB follow up 1 of 2 Start: 04-26-2024 End: 04-26-2024 ambulatory 04/26/2024 7:50 AM EDT Procedure [facility] [address] [place] [address] Everton Decker MD [address] [place], [place] [address] B/L MBNB L3-L4, L4-L5, w fluoro [facility] Comment on above: B/L MBNB L3-L4, L4-L5, w fluoro Start: 04-24-2024 Lipid panel [facility] Start: 2024 Abdominal aortic aneurysm screening Abdominal Aortic Aneurysm Imaging [facility] Start: 2024 Advance Directive Discussion Advance Directive Discussion [facility] Start: 2024 Pneumococcal vaccination Pneumococcal Vaccine (3 of 3 - PPSV23 or PCV20) [facility] Start: 2024 Pneumococcal Vaccine: 65+ (3 of 3 - PPSV23 or PCV20) Pneumococcal Vaccine: 65+ (3 of 3 - PPSV23 or PCV20) [facility] Start: 04-06-2024 End: 04-06-2024 Patient encounter procedure 04/06/2024 9:30 AM EDT Office Visit [place] [address] [facility] [place] [id number] Lois Kee MD [address] [place], [place] [phone] lower back pain [facility] Comment on above: lower back pain Start: 03-30-2024 End: 03-30-2024 Follow-up encounter [facility] Comment on above: Follow up from ANASTASIA FOLLOW UP FROM ILESI L4-L5 Start: 03-19-2024 Covid-19 Vaccine ( season) Covid-19 Vaccine ( season) [facility] Start: 03-19-2024 Covid-19 Vaccine ( season) Covid-19 Vaccine ( season) [facility] Start: 03-19-2024 Influenza vaccination [facility] Start: 03-16-2024 End: 03-16-2024 ambulatory [facility] Comment on above: PENDING - CAD ILESI L4-L5 W Fluoro; PLAV IX OKAY TO HOLD FOR 7 DAYS FC AUTH GOOD - CAD I LESI L4-L5 W Fluoro; PLAVIX OKAY TO HOLD FOR 7 DAYS Start: 02-10-2024 End: 02-10-2024 Patient encounter procedure 02/10/2024 9:15 AM EDT Office Visit Pulmonary Medicine [address] [place] [address] Shelton Aguilera MD [address] [place] [address] lung nodules 3 mos followup Pulmonary Medicine Comment on above: lung nodules 3 mos followup Start: 01-10-2024 End: 01-10-2024 Patient encounter procedure 01/10/2024 1:00 PM EDT Office Visit Allergy [address] [address] Anna Abbott MD [address] [place] [address] allergies Allergy Comment on above: allergies Start: 01-04-2024 End: 01-04-2024 Follow-up encounter 01/04/2024 1:45 PM EDT [facility] [place] [address] Catherine Champion APRN.EXPORT 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 [address] [place] [id number] Follow up from MBB #2 [facility] Comment on above: Follow up from MBB #2 Start: 12-31-2023 End: 12-31-2023 ambulatory [facility] Comment on above: B/L MBNB L4-L5, L5-S1 w fluoro X2 PENDING - CAD B/L MB NB L4-L5, L5-S1 w fluoro; PLAVIX - NO HOLD NEEDED (2 OF 2) DENIED - CAD B/L MBN B L4-L5, L5-S1 w fluoro; PLAVIX - NO HOLD NEEDED (2 OF 2) Start: 12-29-2023 End: 12-29-2023 Patient encounter procedure [facility] PULMONARY TESTING Comment on above: Lung nodules [R91.8] Start: 12-22-2023 End: 12-22-2023 Follow-up encounter [facility] Comment on above: Follow up from MBB #1 Follow up from MBB # 1 (Please let Bertha know when this is completed so she can do the appeal letter) Start: 12-16-2023 End: 12-16-2023 ambulatory [facility] Comment on above: B/L MBNB L4-L5, L5-S1 w fluoro X2 AUTH GOOD - CAD B/L MBNB L4-L5, L5-S1 w fluoro; PLAVIX - NO HOLD NEEDED (1 OF 2) Start: 11-25-2023 End: 11-25-2023 Follow-up encounter 11/25/2023 2:15 PM EDT [facility] [address] [place] [address] 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, Bertha, 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 [address] [place] [address] Follow up from MRI [facility] Comment on above: Follow up from MRI Start: 11-19-2023 End: 11-19-2023 Patient encounter procedure 11/19/2023 12:00 PM EDT Appointment [facility] [address] [facility] [place] [id number] MRI LUMBAR SPINE WO IVCON Radiology Comment on above: MRI LUMBAR SPINE WO IVCON Start: 07-19-2023 Depression Assessment Depression Assessment [facility] Start: 03-19-2023 Covid-19 Vaccine ( season) Covid-19 Vaccine ( season) [facility] Start: 03-19-2023 Influenza vaccination Influenza Vaccine (#1) [facility] Start: 06-04-2022 Pneumococcal vaccination Pneumococcal Vaccine(s) (50+ yrs) (3 of 3 - PCV20 or PCV21) [facility] Start: 06-04-2022 Pneumococcal Vaccine: 50+ (3 of 3 - PCV20 or PCV21) Pneumococcal Vaccine: 50+ (3 of 3 - PCV20 or PCV21) [facility] Start: 04-24-2022 Diabetes Screening Diabetes Screening [facility] Start: 2019 Hepatitis B (HBV) Vaccine (optional start 60+ years) Hepatitis B (HBV) Vaccine (optional start 60+ years) [facility] Start: 2019 RSV Vaccine (1 - 1-dose 60+ series) RSV Vaccine (1 - 1-dose 60+ series) [facility] Start: 2019 RSV Vaccine (1 - Risk 60-74 years 1-dose series) RSV Vaccine (1 - Risk 60-74 years 1-dose series) [facility] Start: 2019 RSV vaccine (adult) (1 - Risk 60-74 years 1-dose series) RSV vaccine (adult) (1 - Risk 60-74 years 1-dose series) [facility] Start: 2019 RSV vaccine (optional 60+ years) RSV vaccine (optional 60+ years) [facility] Start: 2014 Prostate specific antigen measurement Prostate Cancer Screening Discussion [facility] Start: 2009 Measurement of occult blood in single stool specimen [facility] Start: 2009 Screening for malignant neoplasm of colon CRC Screening [facility] Start: 2009 Shingrix Vaccine (1 of 2) Shingrix Vaccine (1 of 2) [facility] Start: 2009 Varicella-zoster vaccine (product) Shingles (RZV) Vaccine (1 of 2) [facility] Start: 2004 Prostate specific antigen measurement Prostate Cancer Screening Discussion [facility] Start: 2004 Screening for malignant neoplasm of colon [facility] Start: 1989 Zoledronic acid therapy Alpha-1 Antitrypsin Deficiency Screening [facility] Start: 1978 Hepatitis A (HAV) Vaccine (optional start 19+ years) Hepatitis A (HAV) Vaccine (optional start 19+ years) [facility] Start: 1977 Annual PCP Team Chronic Disease Visit Annual PCP Team Chronic Disease Visit [facility] Start: 1977 Anxiety Screening Anxiety Screening [facility] Start: 1977 BP Controlled (<130/80) BP Controlled (<130/80) [facility] in Start: 1977 Depression Screening Depression Screening [facility] Start: 1977 [facility] HIV screening HIV Screening [facility] Start: 1977 Tetanus + diphtheria + acellular pertussis vaccine (product) Tdap Booster [facility] Start: 1974 HIV screening [facility] Start: 1964 COVID-19 Vaccine (1) COVID-19 Vaccine (1) [facility] Start: 1959 COVID-19 Vaccine (#1) COVID-19 Vaccine (#1) [facility] Start: 1959 Abdominal aortic aneurysm screening Abdominal Aortic Aneurysm Screening [facility] Start: 1959 Prostate specific antigen measurement Prostate Cancer Screening (shared decision making) [facility] Start: 1959 Screening for malignant neoplasm of colon Colonoscopy [facility] Assay of magnesium MAGNESIUM Lab Routine Daily until discontinued starting 10/25/2024, 2 completed [facility] Comment on above: Daily until discontinued starting 2024, 2 completed Basic metabolic 2000 panel - Serum or Plasma BASIC METABOLIC PANEL Lab Routine Daily until discontinued starting 10/25/2024, 2 completed [facility] [employer] Work Phone: Comment on above: Daily until discontinued starting 2024, 2 completed CBC W Auto Different ial panel - Blood COMPLETE BLOOD COUNT W/DIFF Lab Routine Daily until discontinued starting 10/25/2024, 2 completed [facility] Comment on above: Daily until discontinued starting 2024, [address] Chest WO contrast CT CHEST WO IVCON Radiology Routine Wheezing 09/02/2023 1:22 PM EST [facility] Work Phone: End: 12-10-2024 CT Chest WO contrast CT CHEST WO IVCON Radiology Routine Lung nodules 1 Occurrences starting 11/11/2023 until 12/10/2024 [facility] Work Phone: Comment on above: 1 Occurrences starting 11/11/2023 until 12/10/2024 CT Chest WO contrast CT CHEST WO IVCON Radiology Routine Lung nodules 12/29/2023 11:14 AM EDT [facility] Work Phone: End: 07-14-2025 ECG COMPLETE ECG COMPLETE ECG Routine Spinal stenosis of lumbar region with neurogenic claudication 1 Occurrences starting 07/14/2024 until 07/14/2025 [facility] Comment on above: 1 Occurrences starting 07/14/2024 until 07/14/2025 Ecg routine ecg w/le ast 12 lds trcg only w/o i&r EKG 12 LEAD - PERFORM MUSE Routine COPD exacerbation (HCC) Ordered: 10/26/2024 [facility] Comment on above: Ordered: 10/26/2024 End: 11-10-2024 Echocardiography ECHO Cardiology Routine Lung nodules Severe persistent asthma, unspecified whether complicated 1 Occurrences starting 11/11/2023 until 11/10/2024 [facility] Comment on above: 1 Occurrences starting 11/11/2023 until 11/10/2024 End: 10-24-2024 EXTRA TUBE EXTRA TUBE Lab Routine One time for 1 Occurrences starting 10/24/2024 until 10/24/2024 [employer] Work Phone: Comment on above: One time for 1 Occurrences starting 02/2025 until 10/24/2024 H&P for surgery H&P FOR SURGERY Procedures Routine Spinal stenosis of lumbar region with neurogenic claudication Ordered: 07/14/2024 [facility] Work Phone: Comment on above: Ordered: 07/14/2024 End: 11-10-2024 HOME SLEEP APNEA TEST (HSAT) HOME SLEEP APNEA TEST (HSAT) Procedures Routine Lung nodules Severe persistent asthma, unspecified whether complicated 1 Occurrences starting 11/11/2023 until 11/10/2024 [facility] Comment on above: 1 Occurrences starting 11/11/2023 until 11/10/2024 INHALANT ALLERGEN PANEL INHALANT ALLERGEN PANEL Lab Routine Environmental and seasonal allergies 01/08/2025 11:28 AM EDT [facility] LUNG DIFFUSION CAPAC ITY (DLCO) LUNG DIFFUSION CAPACITY (DLCO) PFT Routine Chronic obstructive pulmonary disease, unspecified COPD type (HCC) 09/02/2023 10:49 AM [employer] [facility] Work Phone: LUNG VOLUMES LUNG VOLUMES PFT Routine Chronic obstructive pulmonary disease, unspecified COPD type (HCC) 09/02/2023 10:49 AM [facility] Work Phone: End: 11-27-2024 MR Lumbar spine WO contrast MRI LUMBAR SPINE WO IVCON Radiology Routine Spinal 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 1 Occurrences starting 10/29/2023 until 11/27/2024 [facility] Work Phone: Comment on above: 1 Occurrences starting 10/29/2023 until 11/27/2024 Njx dx/ther agt pvrt facet jt lmbr/sac 1 level NJX DX/THER AGT PVRT FACET JT LMBR/SAC 1 LEVEL Procedures Routine Lumbar spondylosis Ordered: 10/28/2023 [facility] Work Phone: Comment on above: Ordered: 10/28/2023 Njx dx/ther agt pvrt facet jt lmbr/sac 1 level NJX DX/THER AGT PVRT FACET JT LMBR/SAC 1 LEVEL Procedures Routine Lumbar spondylosis Ordered: 12/16/2023 [facility] Work Phone: Comment on above: Ordered: 12/16/2023 Njx dx/ther agt pvrt facet jt lmbr/sac 1 level NJX DX/THER AGT PVRT FACET JT LMBR/SAC 1 LEVEL Procedures Routine Lumbar spondylosis Ordered: 04/26/2024 [facility] Work Phone: Comment on above: Ordered: 04/26/2024 Njx dx/ther agt pvrt facet jt lmbr/sac 1 level NJX DX/THER AGT PVRT FACET JT LMBR/SAC 1 LEVEL Procedures Routine Lumbar spondylosis Ordered: 05/10/2024 [facility] Work Phone: Comment on above: Ordered: 05/10/2024 Njx dx/ther agt pvrt facet jt lmbr/sac 2nd level NJX DX/THER AGT PVRT FACET JT LMBR/SAC 2ND LEVEL Procedures Routine Lumbar spondylosis Ordered: 10/28/2023 [facility] Work Phone: Comment on above: Ordered: 10/28/2023 Njx dx/ther agt pvrt facet jt lmbr/sac 2nd level NJX DX/THER AGT PVRT FACET JT LMBR/SAC 2ND LEVEL Procedures Routine Lumbar spondylosis Ordered: 12/16/2023 [facility] Comment on above: Ordered: 12/16/2023 Njx dx/ther agt pvrt facet jt lmbr/sac 2nd level NJX DX/THER AGT PVRT FACET JT LMBR/SAC 2ND LEVEL Procedures Routine Lumbar spondylosis Ordered: 04/26/2024 [facility] Comment on above: Ordered: 04/26/2024 Njx dx/ther agt pvrt facet jt lmbr/sac 2nd level NJX DX/THER AGT PVRT FACET JT LMBR/SAC 2ND LEVEL Procedures Routine Lumbar spondylosis Ordered: 05/10/2024 [facility] Comment on above: Ordered: 05/10/2024 Njx dx/ther sbst int rlmnr lmbr/sac w/img gdn EPI LUMBAR OR SACRAL W/IMAGING Procedures Routine Lumbar radiculopathy Ordered: 03/16/2024 [facility] Work Phone: Comment on above: Ordered: 03/16/2024 Patient Education Treating Wrist Fractures [facility] Work Phone: Patient referral [facility] Work Phone: End: 07-07-2025 PULMONARY LAB-SPECIFIC TESTING SERVICE RQST PULMONARY LAB-SPECIFIC TESTING SERVICE RQST PFT Routine Reactive airway disease without complication, unspecified asthma severity, unspecified whether persistent (HCC) 1 Occurrences starting 01/08/2025 until 07/07/2025 [facility] Comment on above: 1 Occurrences starting 01/08/2025 until 07/07/2025 Smr prim src gram/gi emsa stain bct fungi/cell RESPIRATORY CULTURE, MISC Microbiology Routine 10/25/2024 12:47 PM EDT [facility] [employer] Work Phone: End: 08-13-2025 XR Chest PA and Lateral XR CHEST 2V FRONTAL/LAT Radiology Routine Spinal stenosis of lumbar region with neurogenic claudication 1 Occurrences starting 07/14/2024 until 08/13/2025 [facility] Comment on above: 1 Occurrences starting 07/14/2024 until 08/13/2025 End: 07-14-2024 XR Chest PA and Lateral [facility] Work Phone: Comment on above: 1 Occurrences starting 07/14/2024 until 07/14/2024 End: 09-09-2025 XR Lumbar spine 2 Views XR LUMBAR LIMITED 2V FLEX/EXT Radiology Routine S/P lumbar laminectomy 1 Occurrences starting 08/10/2024 until 09/09/2025 [facility] Work Phone: Comment on above: 1 Occurrences starting 08/10/2024 until 09/09/2025 End: 05-04-2025 XR Lumbar spine AP and Lateral XR LUMBAR LIMITED 2V AP/LAT Radiology Routine Low back pain, unspecified back pain laterality, unspecified chronicity, unspecified whether sciatica present 1 Occurrences starting 04/04/2024 until 05/04/2025 [facility] Work Phone: Comment on above: 1 Occurrences starting 04/04/2024 until 05/04/2025 End: 05-06-2025 XR Lumbar spine Views W flexion and W extension XR LUMBAR MOTION 4V AP/LAT/ FLEX/EXT Radiology Routine Low back pain, unspecified back pain laterality, unspecified chronicity, unspecified whether sciatica present 1 Occurrences starting 04/06/2024 until 05/06/2025 [facility] Comment on above: 1 Occurrences starting 04/06/2024 until 05/06/2025 XR Lumbar spine View s W flexion and W extension XR LUMBAR MOTION 4V AP/LAT/ FLEX/EXT Radiology Routine Low back pain, unspecified back pain laterality, unspecified chronicity, unspecified whether sciatica present 06/05/2024 8:59 AM EST [facility] Work Phone: [facility] Immunizations Immunization Date Immunization Notes Care Provider [facility] 01-08-2025 Pneumococcal conjuga te 20 valent (PCV20), polysaccharide [id number] conjugate, adjuvant, PF (EUA=817) Veronica Butt 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-[facility] Work Phone: [facility] 01-08-2025 Respiratory syncytia l virus (RSV), vaccine, bivalent, protein subunit RSV prefusion F, diluent reconstituted, 0.5 mL, preservative free (HGS=494) Veronica Butt 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-[facility] Work Phone: [facility] 10-24-2024 Hemoglobin A1C Aura Wagner MD Work Phone: [facility] 06-14-2023 tetanus toxoid, redu seda diphtheria toxoid, and acellular pertussis vaccine, adsorbed [employer] Work Phone: [facility] 04-24-2019 influenza, injectabl e, quadrivalent, preservative free [facility] 04-24-2019 influenza virus vacc ine, unspecified formulation [facility] Work Phone: [facility] 06-04-2017 influenza, injectabl e, quadrivalent, preservative free [facility] 06-04-2017 pneumococcal polysaccharide vaccine, 23 valent [facility] 05-26-2017 Influenza virus vaccine W [facility] 05-26-2017 influenza virus vacc ine, split virus (incl. purified surface antigen) Brooke Wu RN [facility] 05-26-2017 influenza, seasonal, injectable, preservative free Brooke Wu RN [facility] 05-26-2017 [facility] 06-08-2015 pneumococcal conjuga te vaccine, 13 [facility] 06-05-2015 influenza, seasonal, injectable, preservative free [facility] Payers Date Payer Category Payer Medicare FFS MEDICARE [id number] 2024 Commercial Indemnity [id number] 2024 Miscellaneous or Other HOSPITAL/ MEDICAL GENERIC [id number] 2024 Unknown [id number] 2024 Medicare [id number] 2024 Medicare [id number] 2023 Unknown 0000 [id number] 2023 Self-pay [id number] 2018 Unknown [id number] 2016 Unknown [id number] 1959 Unknown [id number] 1959 Unknown [id number] 1959 Unknown [id number] 732 1959 Unknown [id number] 1959 Unknown [id number] 732 1959 Unknown [id number] 1959 Unknown [id number] 1959 Unknown [id number] 732 Unknown [id number] Unknown [id number] 462 Unknown [id number] 462 Social History Date Type Detail Facility Start: 04-22-2019 End: 03-22-2022 Tobacco smoking status PRIS Tobacco smoking consumption unknown [facility] Start: 1960 Sex Assigned At Not on file [facility] Start: 04-23-2019 Heavy [facility] Start: 04-22-2019 None [facility] Start: 04-22-2019 Spouse/ Signif icant Other [facility] Start: 04-23-2019 Cigarettes [facility] Start: 1960 Sex Assigned At Male W [facility] Start: 06-14-2023 End: 10-24-2024 Tobacco smoking status NHIS Smokes tobacco daily [facility] History of tobacco use Cigarette Smoker [facility] Start: 06-14-2023 End: 10-24-2024 Cigarettes smoked current (pack per day) - Reported 2 [facility] Start: 06-14-2023 End: 01-08-2025 Tobacco use and exposure Smokeless tobacco non-user [facility] Start: 08-20-2023 End: 10-24-2024 Alcohol intake Current drinker of alcohol (finding) [facility] Start: 08-20-2023 End: 10-24-2024 Tobacco use panel [facility] National Score (1-100), lower number is lower risk 53 [facility] Start: 06-14-2023 Alcohol Comment 6 pack a day [facility] Start: 04-06-2024 End: 07-14-2024 Tobacco smoking status NHIS Ex-smoker [facility] History of tobacco use Current smoker [facility] Start: 04-06-2024 Tobacco Comment Quit smoking a week or so ago (04/06/24) [facility] Start: 07-14-2024 Tobacco Comment Quit smoking a week or so ago (04/06/24)Smoked for about 35 years max 2 [facility] Start: 07-14-2024 Alcohol Comment 30 cans beer per wemimi k [facility] Start: 07-14-2024 Tobacco Comment Quit smoking a week or so ago (04/06/24)Smoked for about 35 years 1- 2 [facility] Has the electric, [employer], Dianping, or water eDealya threatened to shut off services in your home in past 12Mo No [facility] (I/We) worried whecelia er (my/our) food would run out before (I/we) got money to buy more. Never true [facility] Start: 04-23-2019 Sex Male (finding) [facility] Start: 11-17-2024 End: 01-08-2025 Tobacco smoking status NHIS Occasional tobacco smoker [facility] Medical Equipment Procedure Code Equipment Code Equipment Origin al Text Equipment Identifier Dates ACCOLADE II ANGL E HIP STEM FDA Start: 06-23-2017 BIOLOX DELTA CER AMIC FEM HEAD FDA Start: 06-23-2017 TRIDENT DESMOND ACETABULAR SHELL FDA Start: 06-23-2017 TRIDENT X3 0 RUBIO Y INSERT FDA Start: 06-23-2017 ACCOLADE II ANGL E HIP STEM FDA Start: 06-23-2017 BIOLOX DELTA CER AMIC FEM HEAD FDA Start: 06-23-2017 TRIDENT DESMOND ACETABULAR SHELL FDA Start: 06-23-2017 TRIDENT X3 0 RUBIO Y INSERT FDA Start: 06-23-2017 ACCOLADE II ANGL E HIP STEM FDA Start: 06-23-2017 BIOLOX DELTA CER AMIC FEM HEAD FDA Start: 06-23-2017 TRIDENT DESMOND ACETABULAR SHELL FDA Start: 06-23-2017 TRIDENT X3 0 RUBIO Y INSERT FDA Start: 06-23-2017 ACCOLADE II ANGL E HIP STEM FDA Start: 06-23-2017 BIOLOX DELTA CER AMIC FEM HEAD FDA Start: 06-23-2017 TRIDENT DESMOND ACETABULAR SHELL FDA Start: 06-23-2017 TRIDENT X3 0 RUBIO Y INSERT FDA Start: 06-23-2017 ACCOLADE II ANGL E HIP STEM FDA Start: 06-23-2017 BIOLOX DELTA CER AMIC FEM HEAD FDA Start: 06-23-2017 TRIDENT DESMOND ACETABULAR SHELL FDA Start: 06-23-2017 TRIDENT X3 0 RUBIO Y INSERT FDA Start: 06-23-2017 ACCOLADE II ANGL E HIP STEM FDA Start: 06-23-2017 BIOLOX DELTA CER AMIC FEM HEAD FDA Start: 06-23-2017 TRIDENT DESMOND ACETABULAR SHELL FDA Start: 06-23-2017 TRIDENT X3 0 RUBIO Y INSERT FDA Start: 06-23-2017 Functional Status Date Assessment Result Facility 07-29-2024 Are you deaf, or do you have serious difficulty hearing No 07/29/2024 3:21 PM Jennifer Bridges, NEENA No [facility] 07-29-2024 Are you blind, or do you have serious difficulty seeing, even when wearing glasses No 07/29/2024 3:21 PM Jennifer Bridges, NEENA No [facility] 07-29-2024 Do you have serious difficulty walking or climbing stairs No 07/29/2024 3:21 PM Jennifer Bridges, NEENA No [facility] 07-29-2024 Do you have difficul ty dressing or bathing No 07/29/2024 3:21 PM Jennifer Bridges, NEENA No [facility] 07-29-2024 Because of a physica l, mental, or emotional condition, do you have difficulty doing errands alone such as visiting a physician's office or shopping No 07/29/2024 3:21 PM Jennifer Bridges, NEENA No [facility] 04-23-2019 Are you deaf, or do you have serious difficulty hearing No 04/23/2019 9:00 PM Cynthia Raphael, NEENA No [facility] 04-23-2019 Are you blind, or do you have serious difficulty seeing, even when wearing glasses Yes 04/23/2019 9:00 PM Cynthia Raphael, NEENA Yes [facility] 04-23-2019 Do you have serious difficulty walking or climbing stairs No 04/23/2019 9:00 PM Cynthia Raphael, NEENA No [facility] 04-23-2019 Do you have difficul ty dressing or bathing No 04/23/2019 9:00 PM Cynthia Raphael, NEENA No [facility] 04-23-2019 Because of a physica l, mental, or emotional condition, do you have difficulty doing errands alone such as visiting a physician's office or shopping No 04/23/2019 9:00 PM Cynthia Raphael, NEENA No [facility] Mental Status Date Assessment Result Facility 07-29-2024 Because of a physica l, mental, or emotional condition, do you have serious difficulty concentrating, remembering, or making decisions No 07/29/2024 3:21 PM Jennifer Bridges, NEENA No [facility] 04-23-2019 Because of a physica l, mental, or emotional condition, do you have serious difficulty concentrating, remembering, or making decisions No 04/23/2019 9:00 PM EDT Cynthia Cohn RN No [facility] Clinical Notes 08-20-2023 to 02-01-2025 Telephone Encounter - Elvis Duke - 02/01/2025 3:12 PM EDTTelephone Encounter - Duke Leal - 02/01/2025 3:12 PM EDTTelephone Encounter - Clemencia Rodriguez - 02/01/2025 2:34 PM EDTAttachments Note Date & Type Note Facility 02-01-2025 Telephone encounter Note Lm on vcml to scheduled PFT [facility] 02-01-2025 Miscellaneous Notes Lm on vcml to scheduled PFT Please contact to reschedule PFT appt. documented in this encounter [facility] 02-01-2025 Telephone encounter Note Please contact to reschedule PFT appt. [facility] 01-08-2025 History of Present illness Narrative Images from the original note were not included. Division of Pulmonary, Critical Care & Sleep Medicine Referring provider: Dhiraj Ron MD Reason for referral: COPD 64 year old male with phx of CVA, asthma, COPD Patient presents today for new patient evaluation. Course: Presents today to establish care and for hospital follow up Accompanied today by his who assists in HPI Was admitted to the hospital for SOB 10/24/24 treated as AECOPD - Discharged with 2L oxygen (new) - Changed to Anoro inhaler - Treated with moxifloxacin and prednisone Prior to this hospital course he was seen by [facility] pulmonary in October and then by a private practice slot floorman in [place] (no OV notes available) Per patient and he was struggling on previous breathing regimen and then when he caught a cold from his he took a turn for the worst and that's when he was hospitalized. Since changing to anoro he has really felt a huge difference in his breathing and is very happy with the results - Has been able to come off of his oxygen for the past 2-3 weeks keeping home pulse ox checks >95% - Does a preventative duoneb treatment every morning Current symptoms: Cough: - Sputum: - Wheezing: - Dyspnea: + Current therapies: TIFFANIE: albuterol PRN ICS: - LABA/LAMA: anoro daily Nebulizer: albuterol PRN, duoneb PRN Asthma history: Asthma diagnosis: question Hospitalizations due to asthma: - Family history of asthma: + son and + sister Allergies/rhinitis/eczema history: COPD history: COPD dx: - Tobacco history Start age: 26 Quit age: - PPD: currently: 1ppd / max: 2 ppd Exacerbation history: Have you had any exacerbations in the past 3-6 months? Yes; 10/24/24 ATB use: moxifloxacin Steroid use: prednisone COPD ASSESSMENT TOOLS Mild obstruction: FEV1 z-score -1.65 to -2.5 Moderate obstruction: FEV1 z-score -2.52 to -4.0 Severe obstruction: FEV1 z-score <-4.1 Labs: Abs Eosin <0.03 -- -- -- 0.07 <0.03 Modified Medical Research [place] (mMRC) dyspnea scale Grade Description of breathlessness 0 I only get breathless with strenuous exercise 1 I get short of breath when hurrying on level ground or walking up a slight hill 2 On level ground, I walk slower than people of the same age because of breathlessness, or have to stop for breath when walking at my own pace 3 I stop for breath after walking about 100 yards or after a few minutes on level ground 4 I am too breathless to leave the house or I am breathless when dressing SCORE: [3] COPD ASSESSMENT TEST (CAT) 0 thru 5 (total = 40) Cough: never . . . all the time [2] Phlegm: none . . . chest full [1] Chest tight: no . . . very [0] Breathless climbing stairs or incline: none . . . very [1] Limited with daily activities: not at all . . . very [0] Confident leaving home: yes . . . not at all [0] Sleep soundly: yes . . . no, because of lung condition [0] Energy: lots . . . None [2] Total Score [6] REVIEW OF SYSTEMS Orthopnea: - Paroxysmal nocturnal Dyspnea: - Pedal Edema: - Weight: stable Cough: + Post-nasal drip: - Nocturnal awakenings: + bathroom Sputum: + GERD: + fairly managed RUSTAM: - Home O2: + PRN 2L with exertion Occupation/Exposures: Occupation: [employer] Born/raised: [place] Pets: 1 dog Triggers: highlighted if positive 1. Inhaled allergens - dust mites, animal danders, molds, mice, and cockroaches 2. Respiratory irritants - strong perfumes and odors, chlorine-based cleaning products, and air pollutants. 3. Comorbid conditions -obesity, obstructive sleep apnea. 4. Medications - non-selective beta-blockers, aspirin, NSAIDs 5. Dietary sulfites - beer, wine, and food items such as processed potatoes, dried fruit, or shrimp ILD history highlighted if positive - Connective tissue disorders; SLE, Sjogren's, RA, Ipava's - Iritable bowel disease - Malignancy or chest radiation - Use of amiodarone - Family history of ILD, pulmonary fibrosis, interstitial pneumonitis - Work exposures; farm work, exotic birds, asbestos, beryllium, radon, dust, mold PAST HISTORY Past Medical History: Medical History[1] Past Surgical History: Surgical History[2] Social History: Social History Tobacco Use Smoking status: Some Days Current packs/day: 1.00 Types: Cigarettes Smokeless tobacco: Never Substance Use Topics Alcohol use: Not on file Family History: Family History[3] Allergies: Allergies[4] Immunizations: Immunization History Administered Date(s) Administered Influenza, Split (incl. purified surface antigen) Vaccine (retired code) (CVX=15) 05/26/2017 Influenza, injectable, quadrivalent, preservative free (XOV=414) 06/04/2017, 04/24/2019 Influenza, injectable, trivalent, preservative free (ITI=081) 06/05/2015, 05/26/2017 Pneumococcal conjugate 13 valent (PCV13) (YIO=072) 06/08/2015, 05/26/2017 Pneumococcal polysaccharide 23 Valent (PPSV23) (CVX=33) 06/04/2017 Tdap (SNL=888) 06/14/2023 Pended Date(s) Pended Pneumococcal conjugate 20 valent (PCV20), polysaccharide [id number] conjugate, adjuvant, PF (EMQ=878) 01/08/2025 Respiratory syncytial virus (RSV), vaccine, bivalent, protein subunit RSV prefusion F, diluent reconstituted, 0.5 mL, preservative free (LWQ=648) 01/08/2025 Outpatient Medications: Current Asthma Medications Sympathomimetics Instructions ipratropium-albuterol (DUO-NEB) 0.5-2.5 (3) MG/3ML nebulizer solution Use 3 mL via nebulizer every 4 hours as needed for Wheezing. umeclidinium-vilanterol (ANORO-ELLIPTA) 62.5-25 mcg/inh AEPB inhalation powder Inhale 1 Puff by mouth daily. albuterol (PROVENTIL) (2.5 MG/3ML) 0.083% nebulizer solution Use 2.5 mg via nebulizer every 4 hours as needed for Wheezing or Shortness of Breath. albuterol (PROVENTIL HFA) INHALATION HFA inhaler (VENTOLIN,PROAIR,PROVENTIL) 90mcg Inhale 2 Puffs by mouth every 4 hours as needed for Wheezing or Shortness of Breath. Leukotriene Modulators Instructions montelukast (SINGULAIR) 10 MG tablet Take 10 mg by mouth at bedtime. Current Outpatient Medications Medication Instructions acetaminophen (TYLENOL) 650 mg, EVERY 6 HOURS albuterol (PROVENTIL HFA) INHALATION HFA inhaler (VENTOLIN,PROAIR,PROVENTIL) 90mcg 2 Puffs, Inhalation, EVERY 4 HOURS PRN albuterol (PROVENTIL) 2.5 mg, EVERY 4 HOURS PRN atorvastatin (LIPITOR) 80 mg, Oral, AT BEDTIME clopidogrel (PLAVIX) 75 mg, Oral, DAILY DSS 100 mg, 2 TIMES DAILY esomeprazole (NEXIUM) 40 mg, Oral, DAILY 30 MIN BEFORE BREAKFAST folic acid 1 mg, Oral, DAILY folic acid 1 mg, Oral, DAILY indomethacin (INDOCIN) 25 mg, Oral, 3 TIMES DAILY PRN ipratropium-albuterol (DUO-NEB) 0.5-2.5 (3) MG/3ML nebulizer solution 3 mL, Nebulization, EVERY 4 HOURS PRN lisinopril (ZESTRIL) 10 mg, Oral, DAILY montelukast (SINGULAIR) 10 mg, AT BEDTIME omeprazole (PRILOSEC) 20 mg, DAILY Pediatric Multivitamins-Iron (Cerovite Jr) chew tab 1 Tablet, Oral, DAILY umeclidinium-vilanterol (ANORO-ELLIPTA) 62.5-25 mcg/inh AEPB inhalation powder 1 Puff, Inhalation, DAILY vitamin B-1 (THIAMINE) 100 mg, Oral, DAILY vitamin B-1 (THIAMINE) 100 mg, Oral, DAILY PHYSICAL EXAM FINDINGS BP 128/78 (BP Location: right arm, BP position: sitting, Cuff Size: adult) Pulse 73 Wt 263 lb (119.3 kg) SpO2 95% Comment: RA BMI 39.99 kg/m Physical Exam Vitals and nursing note reviewed. Constitutional: Appearance: Normal appearance. He is obese. HENT: Head: Normocephalic. Mouth/Throat: Mouth: Mucous membranes are moist. Pharynx: Oropharynx is clear. Eyes: Pupils: Pupils are equal, round, and reactive to light. Cardiovascular: Rate and Rhythm: Normal rate and regular rhythm. Pulses: Normal pulses. Heart sounds: Normal heart sounds. Pulmonary: Effort: Pulmonary effort is normal. Breath sounds: Normal breath sounds. Abdominal: General: Bowel sounds are normal. Palpations: Abdomen is soft. Musculoskeletal: General: Normal range of motion. Cervical back: Normal range of motion. Skin: General: Skin is warm and dry. Neurological: General: No focal deficit present. Mental Status: He is alert and oriented to person, place, and time. Mental status is at baseline. Psychiatric: Mood and Affect: Mood normal. Behavior: Behavior normal. IMAGING Pulmonary Testing: PFT: 08/20/23 [facility] FeNO: [facility] 09/02/24 15.0 (ppb) Sleep study: N/a Radiology: CXR: 07/14/24 [facility] IMPRESSION: No acute radiographic abnormality. CT Chest: 06/08/24 [facility] IMPRESSION: Multiple tiny 2-3 millimeter pulmonary nodules are present, overall decreased in conspicuity and size from the prior, likely resolving infectious/inflammatory process. Recommend continued attention on follow-up in 6-12 months. Echo: 10/25/24 Technically limited study. Hyperdynamic LV systolic function. The left ventricular ejection fraction (LVEF) is 80%. Normal RV systolic function. Dilated left atrium. Asymmetric left ventricular hypertrophy is present. No hemodynamically significant valve disease. Noninvasive hemodynamic assessment is consistent with a low CVP. The pulmonary artery systolic pressure could not be estimated. Patient education / Prevention Strongly encourage to QUIT smoking if actively using Reviewed inhaler techniques Reviewed importance of vaccinations; Flu, COVID, dTap, RSV, PNA Encourage lifestyle modifications including diet and exercise Explained benefits of pulmonary rehab Discussed RUSTAM signs and symptoms as well as risks of undiagnosed or controlled RUSTAM ASSESSMENT/PLAN Reactive airway disease No signs of COPD on PFT's completed at [facility] Did not respond well to Dulera when previously prescribed >>> great response on current anoro inhaler CONTINUE anoro daily and albuterol PRN Repeat PFT's plus 6MWT - PULMONARY LAB-SPECIFIC TESTING SERVICE RQST; Future Pulmonary nodule seen on imaging study Due for repeat imaging in May - CT CHEST W/O CONTRAST; Future; Expected date: 05/19/2025 Environmental and seasonal allergies - COMPLETE BLOOD COUNT W/DIFF - IMMUNOGLOBULIN E - INHALANT ALLERGEN PANEL Tobacco use disorder STRONGLY encourage cessation Currently using NRT Health maintenance Strongly encourage vaccinations; Flu/COVID/RSV/PNA Diet and exercise management encouraged - RSV Pre-Fusion F A&B Recombinant vaccine (ABRYSVO) 120 MCG/0.5ML IM injection - pneumococcal 20-valent conjugate (PREVNAR 20) chargeable vaccine Orders & Meds Signed During This Encounter CT CHEST W/O CONTRAST Complete Blood Count W/Diff Immunoglobulin E Rast 11-Screen omeprazole (PRILOSEC) 20 MG capsule RSV Pre-Fusion F A&B Recombinant vaccine (ABRYSVO) 120 MCG/0.5ML IM injection pneumococcal 20-valent conjugate (PREVNAR 20) chargeable vaccine Pulmonary Lab-Specific Testing Service Request Follow up in about 6 months (around 07/10/2025), or if symptoms worsen or fail to improve, for in-person visit. Veronica Butt APRN.[facility] Department of Pulmonary [facility] Time-based billing justifications: Reviewing (chart, labs, and other clinical notes) Obtaining history (or reviewing separately obtained history) Patient visit (including performing a medically appropriate exam) Counseling/educating the patient/family/caregiver Ordering (medications, tests, procedures - including independent interpretation of results when not reported separately) Charting in [facility] [1] No past medical history on file. [2] No past surgical history on file. [3] No family history on file. [4] Allergies Allergen Reactions Penicillins Roflumilast Rash Patient was identified by name and date of . Barak Cerrato MA .Patient at risk for falls:No Falls Risk protocol implemented: N/A documented in this encounter [facility] 12-25-2024 Telephone encounter Note Neurology Clinical Vamp Liner Note Attempted to call patient. LVM to return call to this RN to schedule a neurology appt for JIN with Dr Flannery. Letter sent SUSY Flood, RN, [facility] Clinical Vamp Liner, Neurology [facility] 12-25-2024 Miscellaneous Notes Neurology Clinical Vamp Liner Note Attempted to call patient. LVM to return call to this RN to schedule a neurology appt for JIN with Dr Flannery. Letter sent SUSY Flood, RN, [facility] Clinical Vamp Liner, Neurology documented in this encounter [facility] 12-02-2024 Hospital Discharge instructions Prashanth Heaton MD - 12/02/2024 5:47 PM EDT You are leaving against medical advice. You understand and accept that the risks of leaving include , Permanent disability, Stroke, Paralysis, Loss of limb or other body part, Permanent loss of physical or mental capabilities, Permanent loss of ability to speak or understand speech, Permanent loss of ability to work or earn a living, Permanent loss of eye sight / vision, Permanent inability to walk, or use arms or legs, and Additional injuries/illness/disabilities that cannot be fully predicted at this time due to incomplete evaluation. As explained to you, we do not feel that: going home and being treated as an outpatient, refusal to undergo additional treatment, and refusal to undergo additional diagnostic testing is acceptable. You are encouraged to follow up in the clinic or with your doctor. We also encourage you to return to the hospital at any time should you change your mind. The following attachments cannot be sent through Care Everywhere.Headache Discharge Instructions, Adult (Uzbek)Risk Factors for Stroke (Uzbek)documented in this encounter [facility] 12-02-2024 Note Physician Triage Not e The patient was seen by me in intake for a brief history and physical obtained for triage reasons only. My exam is intended to be an initial medical screening exam for disposition within our ED with limited initial orders placed, when appropriate, to expedite care by the treating team. HIPAA: Verbal permission granted from patient to discuss case, including protected health information, in front of family / friends in room at the time of the evaluation. Patient complains of Headache x several days. . 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 Focused Exam: Relaxed, comfortable. Fully ambulatory with a normal gait. Speech is clear. Neuro intact The patient is deemed appropriate for [facility]. Initial orders: Baseline labs.. The remainder of testing, treatment, and diagnostic plan will be assumed by the next clinician who will be seeing the patient as a primary patient, creating a plan and impression, and final disposition of the patient from the ED. I had a limited role in this case. PLEASE SEE OTHER ATTENDING/RESIDENT/PHYSICIAN/EXPORT 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 /PA NOTATION Elvis Rodriguez MD [facility] 12-02-2024 Physician Emergency department Note Physician Triage Note The patient was seen by me in intake for a brief history and physical obtained for triage reasons only. My exam is intended to be an initial medical screening exam for disposition within our ED with limited initial orders placed, when appropriate, to expedite care by the treating team. HIPAA: Verbal permission granted from patient to discuss case, including protected health information, in front of family / friends in room at the time of the evaluation. Patient complains of Headache x several days. . 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 Focused Exam: Relaxed, comfortable. Fully ambulatory with a normal gait. Speech is clear. Neuro intact The patient is deemed appropriate for [facility]. Initial orders: Baseline labs.. The remainder of testing, treatment, and diagnostic plan will be assumed by the next clinician who will be seeing the patient as a primary patient, creating a plan and impression, and final disposition of the patient from the ED. I had a limited role in this case. PLEASE SEE OTHER ATTENDING/RESIDENT/PHYSICIAN/EXPORT 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 /PA NOTATION Elvis Rodriguez MD [employer] Work Phone: 12-02-2024 Emergency department Note Physician Triage Note The patient was seen by me in intake for a brief history and physical obtained for triage reasons only. My exam is intended to be an initial medical screening exam for disposition within our ED with limited initial orders placed, when appropriate, to expedite care by the treating team. HIPAA: Verbal permission granted from patient to discuss case, including protected health information, in front of family / friends in room at the time of the evaluation. Patient complains of Headache x several days. . 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 Focused Exam: Relaxed, comfortable. Fully ambulatory with a normal gait. Speech is clear. Neuro intact The patient is deemed appropriate for [facility]. Initial orders: Baseline labs.. The remainder of testing, treatment, and diagnostic plan will be assumed by the next clinician who will be seeing the patient as a primary patient, creating a plan and impression, and final disposition of the patient from the ED. I had a limited role in this case. PLEASE SEE OTHER ATTENDING/RESIDENT/PHYSICIAN/EXPORT 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 /PA NOTATION Elvis Rodriguez MD documented in this encounter [facility] 11-24-2024 Telephone encounter Note COPD Care Coordination note: Subjective: I am doing ok Objective: Future Appointments (next 10) Provider Department Center 01/08/2025 10:20 AM (Arrive by 10:10 AM) Veronica Butt APRN-CNP [facility] 01/18/2025 9:40 AM Anna Sanders [facility] patient who reports: Patient reports shortness of breath: No, doing so much better. Not using oxygen all of the time. Participated in completion of Social Determinants of Health: No Assessment: Spoke to patient states that he is doing so much better today. Patient reports that he is checking his pulse ox at residence. Patient reports that he has a home oxygen machine that he uses as need be. Patient reports that he is taking his breathing treatments as prescribed. Patient denies additional questions or concerns at this time. Plan: Take all medications as prescribed Attend all recommended appointments Brooke Wu Lead Sustainability Specialist [phone] Option 3 [facility] 11-24-2024 Miscellaneous Notes COPD Care Coordination note: Subjective: I am doing ok Objective: Future Appointments (next 10) Provider Department Center 01/08/2025 10:20 AM (Arrive by 10:10 AM) Veronica Butt APRN-CNP [facility] 01/18/2025 9:40 AM [facility] Sanders [facility] Called patient who reports: Patient reports shortness of breath: No, doing so much better. Not using oxygen all of the time. Participated in completion of Social Determinants of Health: No Assessment: Spoke to patient states that he is doing so much better today. Patient reports that he is checking his pulse ox at residence. Patient reports that he has a home oxygen machine that he uses as need be. Patient reports that he is taking his breathing treatments as prescribed. Patient denies additional questions or concerns at this time. Plan: Take all medications as prescribed Attend all recommended appointments Brooke Wu Lead Sustainability Specialist [phone] Option 3 documented in this encounter [facility] 11-17-2024 History of Present illness Narrative Images from the original note were not included. History provided by: Patient and spouse Chief Complaint Patient presents with New patient, to establish relationship PCP is NON-EPICCARE, PROVIDER Patient Active Problem List: 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 artery (HCC) [I63.532] Exacerbation of intermittent asthma, unspecified asthma severity (HCC) [J45.21] COPD exacerbation (HCC) [J44.1] Vitals Recorded in This Encounter 11/17/2024 1408 Pulse: 74 Resp: 18 Temp: 98.5 F (36.9 C) SpO2: 96 % Weight: 269 lb 8 oz (122.2 kg) Height: 5' 8.5 (1.74 m) Pain Score: 0 Health Maintenance Topic Date Due Hepatitis C Antibody Never done CRC Screening Never done Shingles (RZV) Vaccine (1 of 2) Never done RSV vaccine (adult) (1 - Risk 60-74 years 1-dose series) Never done Pneumococcal Vaccine(s) (50+ yrs) (3 of 3 - PCV20 or PCV21) 06/04/2022 COVID-19 Vaccine ( - 2023- season) Never done Welcome to Medicare Visit (G0402) Never done Hepatitis A (HAV) Vaccine (optional start 19+ years) 1978 Hepatitis B (HBV) Vaccine (optional start 60+ years) 2019 Hemoglobin A1C 10/24/2025 Cholesterol 02/21/2028 Tetanus (Td or Tdap) Booster 06/14/2033 Tdap Booster Completed Pulmonary Function Testing Completed Current Outpatient Medications Medication Sig Dispense Refill acetaminophen (TYLENOL) 325 mg tablet Take 650 mg by mouth every 6 hours. Breztri Aerosphere 160-9-4.8 MCG/ACT AERO Inhale 2 Puffs by mouth 2 times daily. budesonide (PULMICORT) 0.5 MG/2ML nebulizer suspension Inhale 0.5 mg by mouth 2 times daily. cyclobenzaprine (FLEXERIL) 10 MG tablet Take 10 mg by mouth 3 times daily as needed. Docusate Sodium (DSS) 100 MG CAPS Take 100 mg by mouth 2 times daily. montelukast (SINGULAIR) 10 MG tablet Take 10 mg by mouth at bedtime. albuterol (PROVENTIL) (2.5 MG/3ML) 0.083% nebulizer solution Use 2.5 mg via nebulizer every 4 hours as needed for Wheezing or Shortness of Breath. albuterol (PROVENTIL HFA) INHALATION HFA inhaler (VENTOLIN,PROAIR,PROVENTIL) 90mcg Inhale 2 Puffs by mouth every 4 hours as needed for Wheezing or Shortness of Breath. 18 g 2 ipratropium-albuterol (DUO-NEB) 0.5-2.5 (3) MG/3ML nebulizer solution Use 3 mL via nebulizer every 4 hours as needed for Wheezing. 60 Each 2 umeclidinium-vilanterol (ANORO-ELLIPTA) 62.5-25 mcg/inh AEPB inhalation powder Inhale 1 Puff by mouth daily. 180 Each 3 esomeprazole (NEXIUM) 40 MG capsule Take 1 Capsule by mouth daily (30 minutes before breakfast). 30 Capsule 3 clopidogrel (Plavix) 75 MG tablet Take 1 Tablet by mouth daily. 90 Tablet 3 atorvastatin (LIPITOR) 80 mg tablet Take 1 Tablet by mouth at bedtime. 90 Tablet 3 lisinopril (ZESTRIL) 10 MG tablet Take 1 Tablet by mouth daily. 90 Each 3 folic acid 1 MG tablet Take 1 Tablet by mouth daily. 30 Tablet 3 vitamin B-1 (THIAMINE) 100 MG tablet Take 1 Tablet by mouth daily. 30 Tablet 3 Pediatric Multivitamins-Iron (Cerovite Jr) chew tab Take 1 Tablet by mouth daily. 30 Tablet 2 No current facility-administered medications for this visit. Physical Exam Vitals and nursing note reviewed. Constitutional: Appearance: Normal appearance. Neck: Vascular: No carotid bruit. Cardiovascular: Rate and Rhythm: Normal rate and regular rhythm. Pulmonary: Breath sounds: Examination of the right-upper field reveals decreased breath sounds. Examination of the left-upper field reveals decreased breath sounds. Examination of the right-middle field reveals decreased breath sounds. Examination of the left-middle field reveals decreased breath sounds. Examination of the right-lower field reveals decreased breath sounds, wheezing and rhonchi. Examination of the left-lower field reveals decreased breath sounds, wheezing and rhonchi. Decreased breath sounds, wheezing and rhonchi present. Musculoskeletal: General: Normal range of motion. Cervical back: Normal range of motion. Neurological: Mental Status: He is alert. Assessment Elis was seen today for new patient, to establish relationship. Pt with severe COPD states when active pulse ox is in the 80%. Recently d/c from the hospital with COPD than pneumonia given home O@ has an appt with Pulmonology schedule. Needs refill of meds. Diagnoses and all orders for this visit: COPD exacerbation (HCC)- stable refills - predniSONE (DELTASONE) 20 MG tablet; Take 1 Tablet by mouth 2 times daily. - umeclidinium-vilanterol (ANORO-ELLIPTA) 62.5-25 mcg/inh AEPB inhalation powder; Inhale 1 Puff by mouth daily. - folic acid 1 MG tablet; Take 1 Tablet by mouth daily. - vitamin B-1 (THIAMINE) 100 MG tablet; Take 1 Tablet by mouth daily. - ipratropium-albuterol (DUO-NEB) 0.5-2.5 (3) MG/3ML nebulizer solution; Use 3 mL via nebulizer every 4 hours as needed for Wheezing. 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 artery (HCC)- stable Other orders- refills - umeclidinium-vilanterol (ANORO-ELLIPTA) 62.5-25 mcg/inh AEPB inhalation powder; Inhale 1 Puff by mouth daily. - esomeprazole (NEXIUM) 40 MG capsule; Take 1 Capsule by mouth daily (30 minutes before breakfast). - folic acid 1 MG tablet; Take 1 Tablet by mouth daily. - ipratropium-albuterol (DUO-NEB) 0.5-2.5 (3) MG/3ML nebulizer solution; Use 3 mL via nebulizer every 4 hours as needed for Wheezing. - vitamin B-1 (THIAMINE) 100 MG tablet; Take 1 Tablet by mouth daily. Follow up: 2 months Identification was verified by patient verbalizing his name and date of . documented in this encounter [facility] 11-16-2024 Note HNO ID: [id number] Author: VARUN PRATT, PT Service: ? Author Type: Physical Therapist Type: Progress Notes Filed: 11/16/2024 11:41 Note Text: 11/16/2024 [facility] PHYSICAL THERAPY DISCONTINUANCE OF CARE Plan of Care Period: Start of Care Date: 09/12/24 Last Visit Date: 09/12/2024 Therapy Program: Patient did not return for follow up care as planned. Please refer to last visit note for interventions provided for this episode of care. Assessment: Unable to formally assess goal achievement. Reason for Discontinuation of Care: Patient has not returned to therapy or scheduled additional follow-up appointments. Varun Pratt, PT [facility] 11-01-2024 Telephone encounter Note Vijay, The patient has been referred to the pulmonary rehab program. The pulmonary referral that was placed does not have the measurements from the PFT included within it. On the referral it states Patient's Reference Values: No results found for: [id number]. In order to assess whether or not the patient qualifies, we will need these values filled in on the referral. Please consider ordering PFTs for the patient so that the updated values can be included in the referral. Based on the current referral, the patient will not be added to the workqueue at this time. Thank you. [facility] 11-01-2024 Miscellaneous Notes Vijay, The patient has been referred to the pulmonary rehab program. The pulmonary referral that was placed does not have the measurements from the PFT included within it. On the referral it states Patient's Reference Values: No results found for: [id number]. In order to assess whether or not the patient qualifies, we will need these values filled in on the referral. Please consider ordering PFTs for the patient so that the updated values can be included in the referral. Based on the current referral, the patient will not be added to the workqueue at this time. Thank you. documented in this encounter [facility] 10-27-2024 Note Transitional Care Carlie [place] Contact Initial communication post-discharge: 1st attempt: 10/27/24, 1:03 PM -Contact reached Sources of Information: Patient Date of Admission: 10/24/24 Date of Discharge: 10/26/24 Hospital Discharge diagnosis: Final Diagnosis: COPD exacerbation (HCC) Current symptoms/Patient concerns: Spoke to patient at residence, states that he is trying to take it easy since he has been home. Patient reports that he is wearing oxygen, 2-4 liters at this time. Patient reports he has a nebulizer machine, but has not been taking breathing treatments. This RN educated patient on the importance of medication compliance. Patient verbalized understanding and had no additional questions or concerns at this time. Medication changes: Yes If yes, what are they and does patient understand how and when to take? NA Medication list reviewed with patient: No Medication-related problems: No medication-related issues identified Patient able to obtain prescribed medications per discharge list: No Pharmacy needs: None at this time Reviewed [facility] pharmacy information with patient: No Reviewed follow up appointments/procedures: No Future Appointments (next 10) Provider Department Center 11/17/2024 2:00 PM Anna Sanders PA-C [facility] Medicine [facility] 01/08/2025 10:20 AM (Arrive by 10:10 AM) Veronica Butt APRN-NABOR [facility] Pulmonary [facility] Reviewed need for/follow up on diagnostic tests, referrals, and treatment plans:No Community resources identified for patient/family: No Durable medical equipment ordered: No Education provided to patient/caregiver to support self management, ADL's, etc: Take all medications as prescribed Attend all recommended follow up appointments Follow up with Urgent Care/Express Care/ED should symptoms worsen or not improve Interact with other health rn care transition involved in patient care: No Referral to Primary Care Coordination: No Referral to Pan Weber: No Information specific to COPD Director Intelligence Analysis Programs: Has home oxygen: Yes, 2-4 liters Has a nebulizer: Yes Plan of Care: Review the medications Review importance of Follow up Care Take all medications as prescribed COPD Medication education provided: Continue to take your medications even if you feel well Inhalers only have a certain amount of medicaion in it, keep track of how often you are using it and when you need to replace it Report side effects: nervousness, trouble sleeping, fast heartbeat, headache, dizziness. If you have an oxygen concentrator make sure it is kept somewhere that has a good supply of fresh air. Do not use aerosols such as hairspray or air fresheners near oxygen Keep sources of flame/heat, ie; stove, matches, candles, fireplaces, space heaters at least 5 feet away from where your oxygen unit is being stored SUSY Hammond, railroad construction directorLead Sustainability Specialist [phone] [facility] 10-27-2024 Telephone encounter Note Transitional Care Management Contact Initial communication post-discharge: 1st attempt: 10/27/24, 1:03 PM -Contact reached Sources of Information: Patient Date of Admission: 10/24/24 Date of Discharge: 10/26/24 Hospital Discharge diagnosis: Final Diagnosis: COPD exacerbation (HCC) Current symptoms/Patient concerns: Spoke to patient at residence, states that he is trying to take it easy since he has been home. Patient reports that he is wearing oxygen, 2-4 liters at this time. Patient reports he has a nebulizer machine, but has not been taking breathing treatments. This RN educated patient on the importance of medication compliance. Patient verbalized understanding and had no additional questions or concerns at this time. Medication changes: Yes If yes, what are they and does patient understand how and when to take? NA Medication list reviewed with patient: No Medication-related problems: No medication-related issues identified Patient able to obtain prescribed medications per discharge list: No Pharmacy needs: None at this time Reviewed [facility] pharmacy information with patient: No Reviewed follow up appointments/procedures: No Future Appointments (next 10) Provider Department Center 11/17/2024 2:00 PM Anna Sanders PA-C [facility] Medicine [facility] 01/08/2025 10:20 AM (Arrive by 10:10 AM) Veronica Butt APRN-EXPORT 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 [facility] Pulmonary [facility] Reviewed need for/follow up on diagnostic tests, referrals, and treatment plans:No Community resources identified for patient/family: No Durable medical equipment ordered: No Education provided to patient/caregiver to support self management, ADL's, etc: Take all medications as prescribed Attend all recommended follow up appointments Follow up with Urgent Care/Express Care/ED should symptoms worsen or not improve Interact with other health rn care transition involved in patient care: No Referral to Primary Care Coordination: No Referral to Pan Weber: No Information specific to COPD Director Intelligence Analysis Programs: Has home oxygen: Yes, 2-4 liters Has a nebulizer: Yes Plan of Care: Review the medications Review importance of Follow up Care Take all medications as prescribed COPD Medication education provided: Continue to take your medications even if you feel well Inhalers only have a certain amount of medicaion in it, keep track of how often you are using it and when you need to replace it Report side effects: nervousness, trouble sleeping, fast heartbeat, headache, dizziness. If you have an oxygen concentrator make sure it is kept somewhere that has a good supply of fresh air. Do not use aerosols such as hairspray or air fresheners near oxygen Keep sources of flame/heat, ie; stove, matches, candles, fireplaces, space heaters at least 5 feet away from where your oxygen unit is being stored SUSY Hammond, railroad construction directorLead Sustainability Specialist [phone] [facility] 10-27-2024 Miscellaneous Notes Transitional Care Management Contact Initial communication post-discharge: 1st attempt: 10/27/24, 1:03 PM -Contact reached Sources of Information: Patient Date of Admission: 10/24/24 Date of Discharge: 10/26/24 Hospital Discharge diagnosis: Final Diagnosis: COPD exacerbation (HCC) Current symptoms/Patient concerns: Spoke to patient at residence, states that he is trying to take it easy since he has been home. Patient reports that he is wearing oxygen, 2-4 liters at this time. Patient reports he has a nebulizer machine, but has not been taking breathing treatments. This RN educated patient on the importance of medication compliance. Patient verbalized understanding and had no additional questions or concerns at this time. Medication changes: Yes If yes, what are they and does patient understand how and when to take? NA Medication list reviewed with patient: No Medication-related problems: No medication-related issues identified Patient able to obtain prescribed medications per discharge list: No Pharmacy needs: None at this time Reviewed [facility] pharmacy information with patient: No Reviewed follow up appointments/procedures: No Future Appointments (next 10) Provider Department Center 11/17/2024 2:00 PM Anna Sanders PA-C [facility] 01/08/2025 10:20 AM (Arrive by 10:10 AM) Veronica Butt, 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-[employer] [facility] Pulmonary [facility] Reviewed need for/follow up on diagnostic tests, referrals, and treatment plans:No Community resources identified for patient/family: No Durable medical equipment ordered: No Education provided to patient/caregiver to support self management, ADL's, etc: Take all medications as prescribed Attend all recommended follow up appointments Follow up with Urgent Care/Express Care/ED should symptoms worsen or not improve Interact with other health rn care transition involved in patient care: No Referral to Primary Care Coordination: No Referral to Pan Weber: No Information specific to COPD Director Intelligence Analysis Programs: Has home oxygen: Yes, 2-4 liters Has a nebulizer: Yes Plan of Care: Review the medications Review importance of Follow up Care Take all medications as prescribed COPD Medication education provided: Continue to take your medications even if you feel well Inhalers only have a certain amount of medicaion in it, keep track of how often you are using it and when you need to replace it Report side effects: nervousness, trouble sleeping, fast heartbeat, headache, dizziness. If you have an oxygen concentrator make sure it is kept somewhere that has a good supply of fresh air. Do not use aerosols such as hairspray or air fresheners near oxygen Keep sources of flame/heat, ie; stove, matches, candles, fireplaces, space heaters at least 5 feet away from where your oxygen unit is being stored SUSY Hammond, railroad construction directorLead Sustainability Specialist [phone] documented in this encounter [facility] 10-26-2024 Hospital Discharge instructions Dhiraj Ron MD - 10/26/2024 3:24 PM EDT Take Anoro-Ellipta inhaler daily and use your albuterol inhaler as needed. You can continue taking your nebulization. Complete your course of prednisone and antibiotics as indicated. We have made followup with [facility] Pulmonary Physicans Also use supplemental oxygen at discharge. documented in this encounter [facility] 10-26-2024 Plan of care note EXERCISE OXIMETRY: At rest, while breathing ambient air the oxygen saturation by pulse oximetry was 95% %, and baseline HR was 74 bpm. While walking at a normal pace and breathing ambient air, oxyhemoglobin saturation fell to 86%. While walking at a normal pace, the lowest supplementary O2 necessary to keep SpO2 > 90% was 2Lpm NC. During a normal paced walk with this amount of oxygen, lowest SpO2 was 94%. Aura Wagner MD [facility] 10-26-2024 Miscellaneous Notes EXERCISE OXIMETRY: At rest, while breathing ambient air the oxygen saturation by pulse oximetry was 95% %, and baseline HR was 74 bpm. While walking at a normal pace and breathing ambient air, oxyhemoglobin saturation fell to 86%. While walking at a normal pace, the lowest supplementary O2 necessary to keep SpO2 > 90% was 2Lpm NC. During a normal paced walk with this amount of oxygen, lowest SpO2 was 94%. Aura Wagner MD documented in this encounter [facility] 10-26-2024 History of Present illness Narrative A walking pulse ox needs to be performed within 48 hours of patient being activated for discharge and the following information and statement needs to be placed in a progress note by a Physician: RA Rest ___ % , Recovery on O2 ___ Liters ___ %, RA exertion ___%. Recovery on O2 ___Liters while exerting/walking/ambulating ___% I have discussed oxygen therapy with the patient, the patient understands and agrees with the treatment. Patients WPO must be at 88% and below in order to qualify for oxygen. After the walking pulse ox is performed, then the Physician may place the E1390 and E0431 orders for the oxygen concentrator and tanks. Discharge--> Order reconciliation--> New Order for discharge--> Enter E1390 and E0431 codes To arrange for delivery of portable tank to the bedside for transport at discharge, please call [employer] at [phone] (Available 08/02). Pt has been cleared to dc home with recs for OP Pulm Rehab. SW will follow for appropriate dc planning. JERRY Norris, HOSPITAL CHIEF EXECUTIVE OFFICER Inpatient Wheelchair Van Driver Images from the original note were not included. [facility] Internal Medicine Shelter Plan Note Elis Bills Age [age] year old male ROOM: [place] [address] Admitted No admission date for patient encounter. Subjective: HPI: Elis Bills is a 64 year old male with PMH of severe persistent asthma, COPD, TUD (5 cig/dsy), AUD (30 beers/week), HTN, HLD, GERD, RUSTAM, spinal stenosis s/p lumbar decompression laminectomy 07/2023, and CVA who presented on 10/24/24 with dyspnea, cough, congestion, and febrile episode (T 102F) that began 3 days prior to arrival. Around a sick contact ( with URI/sinusitis). His resp symptoms worse with exertion. Found to be tachypneic and hypoxic to 80s. Started on BiPAP. CXR unremarkable, CT with inflammatory changes. No evidence of PE. Treated with duo-nebs. Accepted to medical SDU for AHRF. Presented to SDU with tachypnea and moderate resp distress. Endorsed brown sputum production, dyspnea, and worsening cough. Dyspnea worse with exertion. Noted some weight gain recently. Last drink last night. Smokes daily. DNR-DNI. Objective: Vitals: Temp Data Unavailable, HR Data Unavailable, BP Data Unavailable , RR Data Unavailable, SpO2 97% on 6L, Weight 0 lbs Pertinent Exam Findings: General: patient in NAD HENT Normal mucous membranes Eyes PERRLA. EOM intact. No conjunctival injection Lungs b/L expiratory wheezing. Decreased breathe sounds. No crackles. Heart RRR. No murmurs, JVD difficult to assess Abdomen Soft, nondistended, nontender and without rebound. Extremities Pulses 2+ bilaterally radially. 1+ pitting edema b/l Neuro ANOx3, No focal deficits. No asterixis. Strength symmetrical in bilateral UE/LE Skin No erythema, jaundice, rash. Patient is dry and warm. Pertinent Labs/Imaging: - WBC 18, Hgb 12.9 - Covid/flu negative - BMP unremarkable - BNP 1007 - Trop 51 -> 47 - EKG: SR, RBBB, PVCs - CXR: no acute abnormality - CTA: no evidence of PE, subsegmental patchy peripheral parenchymal changes RUL, RLL. Mediastinal and b.L hilar adenopathy. ED Intervention: - Duo-nebs - IV solu-medrol - IVF bolus 1L - Azithromycin, CTX - Ativan Assessment & Plan: Elis Bills is a 64 year old male with PMH of severe persistent asthma, TUD, AUD, HTN, HLD, GERD, RUSTAM, spinal stenosis s/p lumbar decompression laminectomy 07/2023, and CVA who presented on 10/24/24 with dyspnea, cough, congestion, and febrile episode (T 102F) that began 3 days prior to arrival. Admitted due to AHRF likely 2/2 copd exacerbation, requiring BiPAP. #AHRF #COPD Exacerbation #CAP? #HFpEF? (Exertional dyspnea, appears fluid overloaded) Plan: - Prednisone x5 days - CTX, azithro - Resp assessors, BPH - ABG normal - Wean off BiPAP - IV lasix 20 - ECHO #Chronic Medical Problems - continue statin, lisinopril, PPI - continue plavix for TIA - CIWA for AUD, thiamine, FA, cerovite - nicotine patch Remainder of plan per international affairs vice president note. Raji Curran MD Internal Medicine, PGY-3 Available via [facility] Chat documented in this encounter [facility] 10-26-2024 Note DISCHARGE SUMMARY [place] [id number] Elis Bills Date of : 1960 64 year old male Attending Aura Wagner MD Date of Admission 10/24/2024 Date of Discharge 10/26/2024 I spent 37 minutes on the care of this patient on the day of the encounter. Time-based billing justifications: Reviewing (chart, labs, and other clinical notes) Obtaining history (or reviewing separately obtained history) Patient visit (including performing a medically appropriate exam) Counseling/educating the patient/family/caregiver Ordering (medications, tests, procedures - including independent interpretation of results when not reported separately) Charting in [facility] Final Diagnosis: COPD exacerbation (HCC) Hospital Problems as of 10/26/2024 * (Principal) COPD exacerbation (HCC) Exacerbation of intermittent asthma, unspecified asthma severity (HCC) Discharge Procedure Orders Pulm Rehab ADT ([id number]) DME WALKER Oxygen Concentrator (Home Oxygen) Portable Gaseous Oxygen System Pulmonary Rehab Service Request Referral Priority: Routine Referral Type: Evaluate and Treat Referral Reason: Evaluation Referral Location: [facility] CARD PULM REHAB Number of Visits Requested: 24 Expiration Date: 10/26/25 Pulmonary COPD Service Request Referral Priority: Routine Referral Type: Service Level Authorization Referral Location: [facility] PULMONARY HV Number of Visits Requested: 3 Expiration Date: 10/26/25 Electrocardiogram (EKG) - In Clinic Future Appointments Date Time Provider Department Center 11/17/2024 2:00 PM Anna Sanders PA-C [facility] 01/08/2025 10:20 AM Veronica Butt, 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-EXPORT 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 [facility] Condition at Discharge improved Symptoms to look out for after discharge: New or Severe Pain, Chest Pain, Dizziness, Shortness of breath, Fever and Unable to keep down fluids Activity no restrictions Diet no restrictions Disposition home Functional Status ambulatory This patient is not being discharged to a facility, and does not require completion of the facility form. CPAP/BiPAP: BiPAP Reason for Hospitalization COPDe Significant Findings Recent Labs 10/24/24212610/25/245110/26/24 0001 NA 134* 136 136 K 4.5 4.0 4.0 CA 9.2 9.0 8.9 MG 2.2 2.2 2.3 BUN 13 14 29* CR 0.87 0.90 1.03 EGFR 96 95 81 GLU 140* 130* 104 ANIONGAP 16 15 13 Recent Labs 10/24/24212610/25/245110/26/24 0001 WBC 16.7* 16.0* 17.7* HGB 12.3* 12.2* 12.4* PLT 266 277 306 No results for input(s): LIPASE, BLASTS, BLASTABS, MYELOCYTES, METAMYELOCYT, TOXICGRAN, B12, METHMALCRT, FOL, FERRITIN, FE, TRANSFER, TIBC, SAT in the last 72 hours. MCV 88 RDW 15.6 [11.5-14.5] ANC N/A Recent Labs 10/24/242126 AST 16 ALT 19 ALKPHOS 94 TBIL 0.6 DBIL 0.14 Recent Labs 10/24/242126 ALBUMIN 4.2 72HR Labs - Updated 10/26/2024 3:16 PM NOTE: Does NOT include fingerstick glucose ABG: pH N/A / pCO2 N/A / PO2 N/A N/A% None found w/in last 24 hrs Hapt: N/A None found w/in last 24 hrs [36-220] LDH: N/A None found w/in last 24 hrs [50-220] Fgen: N/A None found w/in last 24 hrs [200-500] Dimer: N/A None found w/in last 24 hrs Ferritin N/A / Iron N/A No results found for requested labs within last 120 days. FELY Screen: N/A / N/A IgG / N/A C3 No results found for requested labs within last 120 days. COAG Last INR N/A PT N/A PTT N/A No results found for requested labs within last 120 days. No results found for: ANTIFXALMWHE, RISTCOF, VONWILLAG, FACTORVIII ENDO Last A1c N/A, TSH N/A (FT4 N/A) No results for input(s): A1C, TSH, FREET4, T3 in the last 72 hours. Vitals Pre-Mobility During Mobility Post Mobility Post session Heart rate 74bpm 102 bpm 88 bpm 72 Oxygen 95 % RA >/=90 % on RA 1st trial once sitting for rest break spO2 desat to 87% requiring 2L NC to improve >/=90% 2nd trial once sitting for rest break desat to 86% added 2L NC to improve >/=90% 94% on 2L NC Respiratory Rate 24 Max RR 49 35-41 28 *pt requires 2L NC with activity CXR IMPRESSION: Diffuse interstitial prominence. Findings could be related to atypical/viral pneumonia or mild edema. Echocardiogram Summary Technically limited study. Hyperdynamic LV systolic function. The left ventricular ejection fraction (LVEF) is 80%. Normal RV systolic function. Dilated left atrium. Asymmetric left ventricular hypertrophy is present. No hemodynamically significant valve disease. Noninvasive hemodynamic assessment is consistent with a low CVP. The pulmonary artery systolic pressure could not be estimated. See above for further details. Physical Exam on Day of Discharge Vitals: 10/26/24 1202 BP: 158/94 Pulse: 83 Resp: 31 Temp: SpO2: 90% General: Comfortable sitting at edge of bed HEENT: EOMI. Conjunctiva clear. No scleral icterus. Heart: RRR. (more content not included)... [facility] 10-26-2024 Consult note Formatting of th is note is different from the original. PHYSICAL THERAPY PROGRESS SUMMARY Patient seen from 1000 to 1038 on 7W unit for 38 minute treatment. RN cleared for therapy SUBJECTIVE: Patient Subjective/Goals: I was hanging out in the 80s (oxygen saturation) on Wednesday OBJECTIVE: Appearance: received up in recliner, patient gown, 2L NC, Tele, pulse ox, BP cuff Behavior: awake and agreeable to therapy Pain: Site/Location: denies pain Mobility NA Dep Max Mod Min CG CS DS SD I Comment Supine to sit x *pt reports he is unable to sleep laying flat 2/2 difficulty breathing Sit to/from stand x Sit<>Stand from recliner (2 trials) without device indep Sit<>stand from EOB and chair with rollator modified indep Walking on level surface x > x Pt ambulated 1x100 ft without device close supervision with slight unsteadiness noted- SOB noted post trial; wheezing noted ~10 minute seated rest break to recover Pt ambulated 1x100 ft with rollator modified indep demo improved forward momentum and gait pattern ~ 5 minute seated rest break to recover *pt reporting improved activity tolerance with use of rollator Session ended with pt up in recliner, lines/leads intact. Chair alarm in place d/t falls risk. Call rosales and telephone within reach. Patient instructed to call for staff assist for all mobility. RN aware of patient location and mobility status. Functional Endurance: decreased Vitals Pre-Mobility During Mobility Post Mobility Post session Heart rate 74bpm 102 bpm 88 bpm 72 Oxygen 95 % RA >/=90 % on RA 1st trial once sitting for rest break spO2 desat to 87% requiring 2L NC to improve >/=90% 2nd trial once sitting for rest break desat to 86% added 2L NC to improve >/=90% 94% on 2L NC Respiratory Rate 24 Max RR 49 35-41 28 *pt requires 2L NC with activity This is a scale that asks you to rate the difficulty of your breathing. It starts at number 0 where your breathing is causing you no difficulty at all and progresses through to number 10 where your breathing difficulty is maximal. How much difficulty is your breathing causing you right now? At Rest: 07/28 During Mobility: -01/25 Post Mobility: 09/25 Patient/Family Education: Educated on PT role in acute care setting Review and emphasis on importance of continued mobility in the hospital setting Safety and sequencing with mobility and management of rollator Instructed pt in safe use of rollator including proper height adjustment for once patient assembles rollator he has at home, how to properly fold for transport, always locking prior to transfers, maintaining proximity to rollator with ambulation, ability to sit on it, but never move on it while seated. Increased time spent reviewing activity pacing, energy conservation, posture/positioning for recovery, use of tripod positioning, prioritizing his day and answering patient questions/concerns Reviewed pursed lip breathing techniques as patient demonstrating mouth breathing throughout session req VC to correct Use of call rosales and nursing assistance Discussed post acute recs Answered patient questions/concerns Treatment: Education as stated above, progression of therapeutic activities and gait training based on clinical/ professional judgement related to patient's performance and response to treatment interventions. Ensured patient safety by providing appropriate level of supervision/ guarding with use of all equipment. Verbal and tactile cues for breathing , rest breaks, posture, safety and guarding was provided as necessary. DME: With Patients permission ordered rollator via [employer] Order. If any questions contact [facility] DME Provider at [phone]. 10/26/2024 6 Clicks Basic Mobility PT Difficulty turning over in bed 4 Difficulty sitting down and standing up from a chair with arms 4 Difficulty moving from lying on back to sitting on the side of the bed 4 Help from another person moving to and from bed to a chair 4 Help from another person to walk in hospital room 4 Help from another person climbing 3-5 steps with a railing 3 PT 6 Clicks Score 23 6 Click Score Guidelines: 1 - Total = Requires total assistance, or cannot do at all. 2 - A lot = Requires a lot of help (maximun to moderate assistance) Can use assistive devices. 3 - A little = Requires a little help (supervision, minimal assistance) Can use assistive devices. 4 - None = Does not require any help and does the activity independently. Can use assistive devices. ASSESSMENT: Patient is functionally appropriate for discharge home once medically cleared. Will continue to follow patient while in hospital as appropriate. Recommend PRN assist for IADLS Recommend outpatient pulmonary rehab Goals (to be achieved by 7 days or by discharge from acute care): Patient will perform sit to/from stand with LRD modified independent MET Patient will ambulate 100 ft with LRD modified independent MET Patient will navigate 4 steps to simulate home environment independently Patient will increase ROM/Strength/Endurance/Balance to allow for above goals. Patient/Family independent with exercise program/precautions. PLAN: Will follow peripherally 1-2x/wk Karley Jose, PT NA = Not Assessed, I = Independent, SD = Modified Independent, Sup = Supervised, Set up = Physical Assistance for Set-up Only, Min = Minimal Assistance, Mod = Moderate Assistance, Max = Maximal assistance; Dep = Dependent; AROM = Active Range of Motion; PROM = Passive Range of Motion; MMT = Manual Muscle Test T [facility] 10-26-2024 Note PHYSICAL THERAPY PRO JOSH SUMMARY Patient seen from 1000 to 1038 on 7W unit for 38 minute treatment. RN cleared for therapy SUBJECTIVE: Patient Subjective/Goals: I was hanging out in the 80s (oxygen saturation) on Wednesday OBJECTIVE: Appearance: received up in recliner, patient gown, 2L NC, Tele, pulse ox, BP cuff Behavior: awake and agreeable to therapy Pain: Site/Location: denies pain Mobility NA Dep Max Mod Min CG CS DS SD I Comment Supine to sit x *pt reports he is unable to sleep laying flat 2/2 difficulty breathing Sit to/from stand x Sit<>Stand from recliner (2 trials) without device indep Sit<>stand from EOB and chair with rollator modified indep Walking on level surface x > x Pt ambulated 1x100 ft without device close supervision with slight unsteadiness noted- SOB noted post trial; wheezing noted ~10 minute seated rest break to recover Pt ambulated 1x100 ft with rollator modified indep demo improved forward momentum and gait pattern ~ 5 minute seated rest break to recover *pt reporting improved activity tolerance with use of rollator Session ended with pt up in recliner, lines/leads intact. Chair alarm in place d/t falls risk. Call rosales and telephone within reach. Patient instructed to call for staff assist for all mobility. RN aware of patient location and mobility status. Functional Endurance: decreased Vitals Pre-Mobility During Mobility Post Mobility Post session Heart rate 74bpm 102 bpm 88 bpm 72 Oxygen 95 % RA >/=90 % on RA 1st trial once sitting for rest break spO2 desat to 87% requiring 2L NC to improve >/=90% 2nd trial once sitting for rest break desat to 86% added 2L NC to improve >/=90% 94% on 2L NC Respiratory Rate 24 Max RR 49 35-41 28 *pt requires 2L NC with activity This is a scale that asks you to rate the difficulty of your breathing. It starts at number 0 where your breathing is causing you no difficulty at all and progresses through to number 10 where your breathing difficulty is maximal. How much difficulty is your breathing causing you right now? At Rest: 07/28 During Mobility: -01/25 Post Mobility: 09/25 Patient/Family Education: Educated on PT role in acute care setting Review and emphasis on importance of continued mobility in the hospital setting Safety and sequencing with mobility and management of rollator Instructed pt in safe use of rollator including proper height adjustment for once patient assembles rollator he has at home, how to properly fold for transport, always locking prior to transfers, maintaining proximity to rollator with ambulation, ability to sit on it, but never move on it while seated. Increased time spent reviewing activity pacing, energy conservation, posture/positioning for recovery, use of tripod positioning, prioritizing his day and answering patient questions/concerns Reviewed pursed lip breathing techniques as patient demonstrating mouth breathing throughout session req VC to correct Use of call rosales and nursing assistance Discussed post acute recs Answered patient questions/concerns Treatment: Education as stated above, progression of therapeutic activities and gait training based on clinical/ professional judgement related to patient's performance and response to treatment interventions. Ensured patient safety by providing appropriate level of supervision/ guarding with use of all equipment. Verbal and tactile cues for breathing , rest breaks, posture, safety and guarding was provided as necessary. DME: With Patients permission ordered rollator via [employer] Order. If any questions contact [facility] DME Provider at [phone]. 10/26/2024 6 Clicks Basic Mobility PT Difficulty turning over in bed 4 Difficulty sitting down and standing up from a chair with arms 4 Difficulty moving from lying on back to sitting on the side of the bed 4 Help from another person moving to and from bed to a chair 4 Help from another person to walk in hospital room 4 Help from another person climbing 3-5 steps with a railing 3 PT 6 Clicks Score 23 6 Click Score Guidelines: 1 - Total = Requires total assistance, or cannot do at all. 2 - A lot = Requires a lot of help (maximun to moderate assistance) Can use assistive devices. 3 - A little = Requires a little help (supervision, minimal assistance) Can use assistive devices. 4 - None = Does not require any help and does the activity independently. Can use assistive devices. ASSESSMENT: Patient is functionally appropriate for discharge home once medically cleared. Will continue to follow patient while in hospital as appropriate. Recommend PRN assist for IADLS Recommend outpatient pulmonary rehab Goals (to be achieved by 7 days or by discharge from acute care): Patient will perform sit to/from stand with LRD modified independent MET Patient will ambulate 100 ft with LRD modified independent MET Patient will navigate 4 steps to simulate home en (more content not included)... [facility] 10-26-2024 Consult note Formatting of th is note is different from the original. PHYSICAL THERAPY PROGRESS SUMMARY Patient seen from 1000 to 1038 on 7W unit for 38 minute treatment. RN cleared for therapy SUBJECTIVE: Patient Subjective/Goals: I was hanging out in the 80s (oxygen saturation) on Wednesday OBJECTIVE: Appearance: received up in recliner, patient gown, 2L NC, Tele, pulse ox, BP cuff Behavior: awake and agreeable to therapy Pain: Site/Location: denies pain Mobility NA Dep Max Mod Min CG CS DS SD I Comment Supine to sit x *pt reports he is unable to sleep laying flat 2/2 difficulty breathing Sit to/from stand x Sit<>Stand from recliner (2 trials) without device indep Sit<>stand from EOB and chair with rollator modified indep Walking on level surface x > x Pt ambulated 1x100 ft without device close supervision with slight unsteadiness noted- SOB noted post trial; wheezing noted ~10 minute seated rest break to recover Pt ambulated 1x100 ft with rollator modified indep demo improved forward momentum and gait pattern ~ 5 minute seated rest break to recover *pt reporting improved activity tolerance with use of rollator Session ended with pt up in recliner, lines/leads intact. Chair alarm in place d/t falls risk. Call rosales and telephone within reach. Patient instructed to call for staff assist for all mobility. RN aware of patient location and mobility status. Functional Endurance: decreased Vitals Pre-Mobility During Mobility Post Mobility Post session Heart rate 74bpm 102 bpm 88 bpm 72 Oxygen 95 % RA >/=90 % on RA 1st trial once sitting for rest break spO2 desat to 87% requiring 2L NC to improve >/=90% 2nd trial once sitting for rest break desat to 86% added 2L NC to improve >/=90% 94% on 2L NC Respiratory Rate 24 Max RR 49 35-41 28 *pt requires 2L NC with activity This is a scale that asks you to rate the difficulty of your breathing. It starts at number 0 where your breathing is causing you no difficulty at all and progresses through to number 10 where your breathing difficulty is maximal. How much difficulty is your breathing causing you right now? At Rest: 07/28 During Mobility: -01/25 Post Mobility: 09/25 Patient/Family Education: Educated on PT role in acute care setting Review and emphasis on importance of continued mobility in the hospital setting Safety and sequencing with mobility and management of rollator Instructed pt in safe use of rollator including proper height adjustment for once patient assembles rollator he has at home, how to properly fold for transport, always locking prior to transfers, maintaining proximity to rollator with ambulation, ability to sit on it, but never move on it while seated. Increased time spent reviewing activity pacing, energy conservation, posture/positioning for recovery, use of tripod positioning, prioritizing his day and answering patient questions/concerns Reviewed pursed lip breathing techniques as patient demonstrating mouth breathing throughout session req VC to correct Use of call rosales and nursing assistance Discussed post acute recs Answered patient questions/concerns Treatment: Education as stated above, progression of therapeutic activities and gait training based on clinical/ professional judgement related to patient's performance and response to treatment interventions. Ensured patient safety by providing appropriate level of supervision/ guarding with use of all equipment. Verbal and tactile cues for breathing , rest breaks, posture, safety and guarding was provided as necessary. DME: With Patients permission ordered rollator via [employer] Order. If any questions contact [facility] DME Provider at [phone]. 10/26/2024 6 Clicks Basic Mobility PT Difficulty turning over in bed 4 Difficulty sitting down and standing up from a chair with arms 4 Difficulty moving from lying on back to sitting on the side of the bed 4 Help from another person moving to and from bed to a chair 4 Help from another person to walk in hospital room 4 Help from another person climbing 3-5 steps with a railing 3 PT 6 Clicks Score 23 6 Click Score Guidelines: 1 - Total = Requires total assistance, or cannot do at all. 2 - A lot = Requires a lot of help (maximun to moderate assistance) Can use assistive devices. 3 - A little = Requires a little help (supervision, minimal assistance) Can use assistive devices. 4 - None = Does not require any help and does the activity independently. Can use assistive devices. ASSESSMENT: Patient is functionally appropriate for discharge home once medically cleared. Will continue to follow patient while in hospital as appropriate. Recommend PRN assist for IADLS Recommend outpatient pulmonary rehab Goals (to be achieved by 7 days or by discharge from acute care): Patient will perform sit to/from stand with LRD modified independent MET Patient will ambulate 100 ft with LRD modified independent MET Patient will navigate 4 steps to simulate home environment independently Patient will increase ROM/Strength/Endurance/Balance to allow for above goals. Patient/Family independent with exercise program/precautions. PLAN: Will follow peripherally 1-2x/wk Karley Jose PT NA = Not Assessed, I = Independent, SD = Modified Independent, Sup = Supervised, Set up = Physical Assistance for Set-up Only, Min = Minimal Assistance, Mod = Moderate Assistance, Max = Maximal assistance; Dep = Dependent; AROM = Active Range of Motion; PROM = Passive Range of Motion; MMT = Manual Muscle Test Associated Order(s): IP SOCIAL WORK SERVICE REQUEST SW is aware of consult for substance use resources. Pt declines substance use issues and states he does not need resources. EDITH Norris, [facility] Inpatient Wheelchair Van Driver Associated Order(s): IP PHYSICAL THERAPY SERVICE REQUEST PHYSICAL THERAPY ACUTE EVALUATION Referral received, chart reviewed. Patient seen from 932 to 958 on 7W unit for 26 minutes. Admit date/time: 10/24/2024 7:57 PM Reason for Admit: dyspnea, cough, congestion, and febrile episode Diagnosis: COPDe vs pneumonia HTN GERD Precautions: High Fall Risk Regular Diet DNR Progressive Mobility CIWA Tests/Procedures this admit: 10/24 Chest PE - Past Medical and Surgical History: PMH: COPD, Asthma, Tobacco abuse, ETOH, GERD PSH: Lumbar laminectomy 07/2024 Identification was verified by patient verbalizing his/her name and date of . Risks and Benefits of physical therapy: Patient informed of risks and benefits of treatment SUBJECTIVE: Patient Subjective:We can do whatever you want, want to talk politics? 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 Denies falls or use of assist devices. Home: 4 steps to enter with rails. 13 steps to bedroom/bathroom with rails. Assistance available: 24 hr assist Equipment available: cane OBJECTIVE: Appearance: Telemetry donned PIV in bilateral upper extremities heplocked Behavior: WFL Oriented x 3 Follows multi-step commands consistently Pain: Site/Location: none; Pain Scale: 0/10 Passive ROM: WFL Strength/Active ROM: WFL (trunk and B LE grossly WFL) Mobility: NA Dep Max Mod Min CG CS DS SD I Comment Supine<>sit x Sit<>stand x Without upper extremity support Ambulation x Cues to decrease kalyn. Pt ambulated with normal heel/toe gait sequence.120ft x 2 Stairs x Patient performed step over step sequence with use of single hand rail. 4 steps Endurance: Impaired, RPE 16 following ambulation Vitals: BP 136/62, O2 97% HR 109 at rest and 130 after ambulation. Pt on 4L of supplemental O2 Patient Education: Instructed Patient in roles, goals, treatment plan: demonstrated good verbal understanding. Reviewed strategies to improve activity tolerance including breathing patterns and posture awareness. Discussed possible effect on posture/positioning on breathing patterns. Patient up in chair with call light in reach. RN at the bedside, stated patient does not need chair alarm. 10/25/2024 6 Clicks Basic Mobility PT Difficulty turning over in bed 4 Difficulty sitting down and standing up from a chair with arms 4 Difficulty moving from lying on back to sitting on the side of the bed 4 Help from another person moving to and from bed to a chair 4 Help from another person to walk in hospital room 4 Help from another person climbing 3-5 steps with a railing 4 PT 6 Clicks Score 24 6 Click Score Guidelines: 1 - Total = Requires total assistance, or cannot do at all. 2 - A lot = Requires a lot of help (maximun to moderate assistance) Can use assistive devices. 3 - A little = Requires a little help (supervision, minimal assistance) Can use assistive devices. 4 - None = Does not require any help and does the activity independently. Can use assistive devices. Progressive Mobility Protocol Score: Level 4 ASSESSMENT: Elis Bills is a 64 year old yo male admitted for dyspnea, cough, congestion, and febrile episode. Pt currently being worked up by the medical team. Per chart review, COPDe vs pneumonia. The patient is currently functioning below baseline status and will continue to benefit from physical therapy in the acute care setting to address impairments listed below. Patient is pleasant and agreeable to continued participation in the acute care setting. Patient is functionally appropriate for discharge home once medically cleared. No post acute care physical therapy needs. Will continue to follow patient while in hospital as appropriate. Problems: Decreased functional mobility Decreased endurance Rehabilitation Potential: Good Goals (to be achieved by discharge from acute care): 1. Patient to ambulate 250ft, independently 2. Patient to ascend/descend 4 steps with Mod I -met 3. Patient to demonstrate appropriate stamina and balance to attain above functional goals without LOB or SOB. PLAN OF CARE: Frequency: Patient to be seen 3-5 times a week Interventions: Functional mobility The evaluation findings and treatment plan were discussed with the patient/family. The patient/family indicated understanding and agreement with the plan. Prashanth Luke, PT NA = Not Assessed, I = Independent, SD = Modified Independent, Sup = Supervised, Set up = Physical Assistance for Set-up Only, Min = Minimal Assistance, Mod = Moderate Assistance, Max = Max assistance; Dep = Dependent; AROM = Active Range of Motion; PROM = Passive Range of Motion; MMT = Manual Muscle Test; LE = Lower Extremity documented in this encounter [facility] 10-25-2024 Consult note Associated Order (s): IP SOCIAL WORK SERVICE REQUEST SW is aware of consult for substance use resources. Pt declines substance use issues and states he does not need resources. JERRY Norris, [employer]PITAL [employer]IE[employer]EC[employer] OFFIC[employer] Inpatient Wheelchair Van Driver [facility] 10-25-2024 Consult note Associated Order (s): IP PHYSICAL THERAPY SERVICE REQUEST PHYSICAL THERAPY ACUTE EVALUATION Referral received, chart reviewed. Patient seen from 932 to 958 on 7W unit for 26 minutes. Admit date/time: 10/24/2024 7:57 PM Reason for Admit: dyspnea, cough, congestion, and febrile episode Diagnosis: COPDe vs pneumonia HTN GERD Precautions: High Fall Risk Regular Diet DNR Progressive Mobility CIWA Tests/Procedures this admit: 10/24 Chest PE - Past Medical and Surgical History: PMH: COPD, Asthma, Tobacco abuse, ETOH, GERD PSH: Lumbar laminectomy 07/2024 Identification was verified by patient verbalizing his/her name and date of . Risks and Benefits of physical therapy: Patient informed of risks and benefits of treatment SUBJECTIVE: Patient Subjective:We can do whatever you want, want to talk politics? 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 Denies falls or use of assist devices. Home: 4 steps to enter with rails. 13 steps to bedroom/bathroom with rails. Assistance available: 24 hr assist Equipment available: cane OBJECTIVE: Appearance: Telemetry donned PIV in bilateral upper extremities heplocked Behavior: WFL Oriented x 3 Follows multi-step commands consistently Pain: Site/Location: none; Pain Scale: 0/10 Passive ROM: WFL Strength/Active ROM: WFL (trunk and B LE grossly WFL) Mobility: NA Dep Max Mod Min CG CS DS SD I Comment Supine<>sit x Sit<>stand x Without upper extremity support Ambulation x Cues to decrease kalyn. Pt ambulated with normal heel/toe gait sequence.120ft x 2 Stairs x Patient performed step over step sequence with use of single hand rail. 4 steps Endurance: Impaired, RPE 16 following ambulation Vitals: BP 136/62, O2 97% HR 109 at rest and 130 after ambulation. Pt on 4L of supplemental O2 Patient Education: Instructed Patient in roles, goals, treatment plan: demonstrated good verbal understanding. Reviewed strategies to improve activity tolerance including breathing patterns and posture awareness. Discussed possible effect on posture/positioning on breathing patterns. Patient up in chair with call light in reach. RN at the bedside, stated patient does not need chair alarm. 10/25/2024 6 Clicks Basic Mobility PT Difficulty turning over in bed 4 Difficulty sitting down and standing up from a chair with arms 4 Difficulty moving from lying on back to sitting on the side of the bed 4 Help from another person moving to and from bed to a chair 4 Help from another person to walk in hospital room 4 Help from another person climbing 3-5 steps with a railing 4 PT 6 Clicks Score 24 6 Click Score Guidelines: 1 - Total = Requires total assistance, or cannot do at all. 2 - A lot = Requires a lot of help (maximun to moderate assistance) Can use assistive devices. 3 - A little = Requires a little help (supervision, minimal assistance) Can use assistive devices. 4 - None = Does not require any help and does the activity independently. Can use assistive devices. Progressive Mobility Protocol Score: Level 4 ASSESSMENT: Elis Bills is a 64 year old yo male admitted for dyspnea, cough, congestion, and febrile episode. Pt currently being worked up by the medical team. Per chart review, COPDe vs pneumonia. The patient is currently functioning below baseline status and will continue to benefit from physical therapy in the acute care setting to address impairments listed below. Patient is pleasant and agreeable to continued participation in the acute care setting. Patient is functionally appropriate for discharge home once medically cleared. No post acute care physical therapy needs. Will continue to follow patient while in hospital as appropriate. Problems: Decreased functional mobility Decreased endurance Rehabilitation Potential: Good Goals (to be achieved by discharge from acute care): 1. Patient to ambulate 250ft, independently 2. Patient to ascend/descend 4 steps with Mod I -met 3. Patient to demonstrate appropriate stamina and balance to attain above functional goals without LOB or SOB. PLAN OF CARE: Frequency: Patient to be seen 3-5 times a week Interventions: Functional mobility The evaluation findings and treatment plan were discussed with the patient/family. The patient/family indicated understanding and agreement with the plan. Prashanth Luke, PT NA = Not Assessed, I = Independent, SD = Modified Independent, Sup = Supervised, Set up = Physical Assistance for Set-up Only, Min = Minimal Assistance, Mod = Moderate Assistance, Max = Max assistance; Dep = Dependent; AROM = Active Range of Motion; PROM = Passive Range of Motion; MMT = Manual Muscle Test; LE = Lower Extremity [facility] 10-25-2024 Note PHYSICAL THERAPY ACU TE EVALUATION Referral received, chart reviewed. Patient seen from 932 to 958 on 7W unit for 26 minutes. Admit date/time: 10/24/2024 7:57 PM Reason for Admit: dyspnea, cough, congestion, and febrile episode Diagnosis: COPDe vs pneumonia HTN GERD Precautions: High Fall Risk Regular Diet DNR Progressive Mobility CIWA Tests/Procedures this admit: 10/24 Chest PE - Past Medical and Surgical History: PMH: COPD, Asthma, Tobacco abuse, ETOH, GERD PSH: Lumbar laminectomy 07/2024 Identification was verified by patient verbalizing his/her name and date of . Risks and Benefits of physical therapy: Patient informed of risks and benefits of treatment SUBJECTIVE: Patient Subjective:We can do whatever you want, want to talk politics? 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 Denies falls or use of assist devices. Home: 4 steps to enter with rails. 13 steps to bedroom/bathroom with rails. Assistance available: 24 hr assist Equipment available: cane OBJECTIVE: Appearance: Telemetry donned PIV in bilateral upper extremities heplocked Behavior: WFL Oriented x 3 Follows multi-step commands consistently Pain: Site/Location: none; Pain Scale: 0/10 Passive ROM: WFL Strength/Active ROM: WFL (trunk and B LE grossly WFL) Mobility: NA Dep Max Mod Min CG CS DS SD I Comment Supine<>sit x Sit<>stand x Without upper extremity support Ambulation x Cues to decrease kalyn. Pt ambulated with normal heel/toe gait sequence.120ft x 2 Stairs x Patient performed step over step sequence with use of single hand rail. 4 steps Endurance: Impaired, RPE 16 following ambulation Vitals: BP 136/62, O2 97% HR 109 at rest and 130 after ambulation. Pt on 4L of supplemental O2 Patient Education: Instructed Patient in roles, goals, treatment plan: demonstrated good verbal understanding. Reviewed strategies to improve activity tolerance including breathing patterns and posture awareness. Discussed possible effect on posture/positioning on breathing patterns. Patient up in chair with call light in reach. RN at the bedside, stated patient does not need chair alarm. 10/25/2024 6 Clicks Basic Mobility PT Difficulty turning over in bed 4 Difficulty sitting down and standing up from a chair with arms 4 Difficulty moving from lying on back to sitting on the side of the bed 4 Help from another person moving to and from bed to a chair 4 Help from another person to walk in hospital room 4 Help from another person climbing 3-5 steps with a railing 4 PT 6 Clicks Score 24 6 Click Score Guidelines: 1 - Total = Requires total assistance, or cannot do at all. 2 - A lot = Requires a lot of help (maximun to moderate assistance) Can use assistive devices. 3 - A little = Requires a little help (supervision, minimal assistance) Can use assistive devices. 4 - None = Does not require any help and does the activity independently. Can use assistive devices. Progressive Mobility Protocol Score: Level 4 ASSESSMENT: Elis Bills is a 64 year old yo male admitted for dyspnea, cough, congestion, and febrile episode. Pt currently being worked up by the medical team. Per chart review, COPDe vs pneumonia. The patient is currently functioning below baseline status and will continue to benefit from physical therapy in the acute care setting to address impairments listed below. Patient is pleasant and agreeable to continued participation in the acute care setting. Patient is functionally appropriate for discharge home once medically cleared. No post acute care physical therapy needs. Will continue to follow patient while in hospital as appropriate. Problems: Decreased functional mobility Decreased endurance Rehabilitation Potential: Good Goals (to be achieved by discharge from acute care): 1. Patient to ambulate 250ft, independently 2. Patient to ascend/descend 4 steps with Mod I -met 3. Patient to demonstrate appropriate stamina and balance to attain above functional goals without LOB or SOB. PLAN OF CARE: Frequency: Patient to be seen 3-5 times a week Interventions: Functional mobility The evaluation findings and treatment plan were discussed with the patient/family. The patient/family indicated understanding and agreement with the plan. Prashanth Luke, PT NA = Not Assessed, I = Independent, SD = Modified Independent, Sup = Supervised, Set up = Physical Assistance for Set-up Only, Min = Minimal Assistance, Mod = Moderate Assistance, Max = Max assistance; Dep = Dependent; AROM = Active Range of Motion; PROM = Passive Range of Motion; MMT = Manual Muscle Test; LE = Lower Extremity [facility] 10-25-2024 History and physical note Stepdown Unit ATTENDING NOTE AURA WAGNER MD - PIN [phone] I saw and evaluated the patient. I personally obtained the flowers and critical portions of the history and physical examination. I reviewed the resident's documentation and discussed the patient with the resident. I agree with the resident's medical decision making as documented in the resident's note. This patient has a high probability of sudden, clinically significant deterioration, which requires the highest level of physician preparedness to intervene urgently. I managed/supervised life or organ supporting interventions that required frequent physician assessment. Time I spent with family or surrogate(s) is included only if the patient was incapable of providing the necessary information or participating in medical decision making. Time devoted to teaching and to any procedures I billed separately is not included. I spent 91 critical care minutes of my full attention on this patient's management and direct patient care. Of note, medical issues requiring critical care management include: RESPIRATORY FAILURE. Additional findings and notation: Elis Bills is a 64 year old with PMH of COPD, severe persistent asthma (FEV1 64% FEV1/FVC 70%) , tobacco abuse, alcohol abuse (30 beers/week) TIA (P2 occlusion 2018, on plavix), GERD, HLD, lumbar laminectomy (07/2024) presenting with shortness of breath. Patient reported fever at home. Patient initially requited rescue BPAP. Patient wad admitted to SDU for Acute hypoxemic and hypercapnic respiratory failure due to COPDAE. Vitals during my assessment B.P 151/79, HR 81, RR 19, SpO2 96% on nasal cannula 5L/min, Temp afebrile Data reviewed by me Pertinent labs: CBC ~ Leucocytosis noted, Hb 12.2 BMP ~ Glucose 130, otherwise unremarkable. Hepatic function panel ~ Unremarkable. ABG ~ Unremarkable Hs Trop ~ 51 Imaging: Chest X ray (10/25/2024) Diffuse interstitial prominence. Findings could be related to atypical/viral pneumonia or mild edema. CTA Chest PE (10/24/2024) No CT evidence of pulmonary embolism with nondiagnostic subsegmental level. Mediastinal and bilateral hilar adenopathy, new finding ASSESSMENT/PLAN NEURO: Alcohol use disorder On CIWA protocol On Folic acid and thiamine CARDIAC: Hypertension ~ On Lisinopril. CAD ~ On aspirin and statin PULM: Acute hypoxemic/ hypercapnic respiratory failure due to COPDAE + Community acquired pneumonia On Prednisone x 5 days Azithromycin x 5 days. COPD respiratory assessors On supplemental oxygen, goal SpO2 88-92% ID: Sepsis as evidenced by leucocytosis, tachycardia and hypoxemia due to community acquired pneumonia. On Rocephin and Azithromycin (D1/5) Follow respiratory cultures ENDO: Blood glucose 140-180 mg/dL +) Nutrition -- Regular diet +) Sedation/Analgesia -- Acetaminophen PRN +) DVT/GI prophylaxis -- Lovenox, PPI +) Lines/Catheters -- None +) Social/Goals of Care -- Spouse is NOK Code Status: DNR-CCA and DNI Aura Wagner MD Pulmonary, Critical Care and Sleep Medicine [facility] 10-25-2024 History and physical note Stepdown Unit ATTENDING NOTE AURA WAGNER MD - PIN [phone] I saw and evaluated the patient. I personally obtained the flowers and critical portions of the history and physical examination. I reviewed the resident's documentation and discussed the patient with the resident. I agree with the resident's medical decision making as documented in the resident's note. This patient has a high probability of sudden, clinically significant deterioration, which requires the highest level of physician preparedness to intervene urgently. I managed/supervised life or organ supporting interventions that required frequent physician assessment. Time I spent with family or surrogate(s) is included only if the patient was incapable of providing the necessary information or participating in medical decision making. Time devoted to teaching and to any procedures I billed separately is not included. I spent 91 critical care minutes of my full attention on this patient's management and direct patient care. Of note, medical issues requiring critical care management include: RESPIRATORY FAILURE. Additional findings and notation: Elis Bills is a 64 year old with PMH of COPD, severe persistent asthma (FEV1 64% FEV1/FVC 70%) , tobacco abuse, alcohol abuse (30 beers/week) TIA (P2 occlusion 2018, on plavix), GERD, HLD, lumbar laminectomy (07/2024) presenting with shortness of breath. Patient reported fever at home. Patient initially requited rescue BPAP. Patient wad admitted to SDU for Acute hypoxemic and hypercapnic respiratory failure due to COPDAE. Vitals during my assessment B.P 151/79, HR 81, RR 19, SpO2 96% on nasal cannula 5L/min, Temp afebrile Data reviewed by me Pertinent labs: CBC ~ Leucocytosis noted, Hb 12.2 BMP ~ Glucose 130, otherwise unremarkable. Hepatic function panel ~ Unremarkable. ABG ~ Unremarkable Hs Trop ~ 51 Imaging: Chest X ray (10/25/2024) Diffuse interstitial prominence. Findings could be related to atypical/viral pneumonia or mild edema. CTA Chest PE (10/24/2024) No CT evidence of pulmonary embolism with nondiagnostic subsegmental level. Mediastinal and bilateral hilar adenopathy, new finding ASSESSMENT/PLAN NEURO: Alcohol use disorder On CIWA protocol On Folic acid and thiamine CARDIAC: Hypertension ~ On Lisinopril. CAD ~ On aspirin and statin PULM: Acute hypoxemic/ hypercapnic respiratory failure due to COPDAE + Community acquired pneumonia On Prednisone x 5 days Azithromycin x 5 days. COPD respiratory assessors On supplemental oxygen, goal SpO2 88-92% ID: Sepsis as evidenced by leucocytosis, tachycardia and hypoxemia due to community acquired pneumonia. On Rocephin and Azithromycin (D1/5) Follow respiratory cultures ENDO: Blood glucose 140-180 mg/dL +) Nutrition -- Regular diet +) Sedation/Analgesia -- Acetaminophen PRN +) DVT/GI prophylaxis -- Lovenox, PPI +) Lines/Catheters -- None +) Social/Goals of Care -- Spouse is NOK Code Status: DNR-CCA and DNI Aura Wagner MD Pulmonary, Critical Care and Sleep Medicine [facility] Images from the original note were not included. [facility] Step Down Unit - H&P Elis Bills Age [age] year old male ROOM: [place] [address] Admitted 10/24/2024 7:57 PM Hospital Day: 2 HISTORY OF PRESENT ILLNESS CHIEF COMPLAINT: No chief complaint on file. Elis Bills is a 64 year old male admitted on 10/24 with a PMH of COPD, severe persistent asthma (FEV1 64% FEV1/FVC 70%) , tobacco abuse, alcohol abuse (30 beers/week) TIA (P2 occlusion 2018, on plavix), GERD, HLD, lumbar laminectomy (07/2024) presenting with shortness of breath. He started to feel SOB in sabianism on Wednesday. Went home and used pulse ox that had low readings in the 80s. Used his home inhalers but they did not help much. Last night woke up at 230am with extreme shortness of breath, felt he could even try to call 911. Used albuterol and it got better but then shortness of breath came back so he called 911. Shortness of breath is worse laying down and with exertion. Sleeps at incline and can't lay flat. Endorses weight loss since back surgery in Jul. No nausea, vomiting, chest pain. He endorses worse cough with brown sputum which is not typical of him. States he was febrile to 102 at home. Had some steroids at home from prior doctor so attempted to take those Wednesday but he did not feel better. He does not wear oxygen or CPAP at home, said he's been sleep tested before and he does not have sleep apnea. recently sick at home with upper respiratory symptoms. Social Drinks 30 beers weekly: 3-4 per day; denies any prior hx of withdrawal or shakiness if he does not drink. Last drink 4/7 PM Smokes 5 cigarettes daily No other drug use ED Course: Outside ED: 180/93 pulse 80 RR 30 80% on RA placed on BIPAP for inc WOB, now on 4L. Temp 99.3 Labs: trop: 51--47 BNP 1007, Mg 1.9, BMP: Na 133 (chronic) K 4.1 Cr 0.89. WBC 18.48 Hgb 12.9 (MCV 87) Covid/Flu negative Lactate 1.8 Imaging: CT PE: No CT evidence of pulmonary embolism with nondiagnostic subsegmental level. Subsegmental patchy peripheral parenchymal changes right upper lobe axial image 141 posterior right lower lobe. Mild subsegmental parenchymal changes lateral left upper lobe. No suspicious nodular mass.. Follow-up imaging until clearance especially in view of adenopathy. Mediastinal and bilateral hilar adenopathy, new finding CXR: No acute radiographic abnormality. EKG: RBBB (known chronic) Interventions: CTX/Azithro Solumedrol x1, duonebs x4, 1L NaCl, BiPAP ROS: As noted in HPI ------- PAST HISTORY ---- No past medical history on file. There is no previous surgical history on file. Current Outpatient Medications Medication Instructions atorvastatin (LIPITOR) 80 mg, Oral, AT BEDTIME clopidogrel (PLAVIX) 75 mg, Oral, DAILY esomeprazole (NEXIUM) 40 mg, Oral, DAILY 30 MIN BEFORE BREAKFAST folic acid 1 mg, Oral, DAILY lisinopril (ZESTRIL) 2.5 mg, Oral, DAILY nicotine (NICODERM CQ) 21 mg, Transdermal, DAILY vitamin B-1 (THIAMINE) 100 mg, Oral, DAILY No family history on file. OBJECTIVE Vitals: 10/25/24 0415 BP: 165/93 Pulse: Resp: 18 Temp: 97.5 F (36.4 C) SpO2: 95% 16.0 \ 12.2 / 277 / 35.9 \ CBC: 10/25/2024: 12:52 AM 136 98 14 / \ 130 4.0 27 0.90 BMP: 10/25/2024: 12:52 AM Ma.2 I/Os: Intake/Output Summary (Last 24 hours) at 10/25/2024 0653 Last data filed at 10/25/2024 0415 Gross per 24 hour Intake -- Output 950 ml Net -950 ml Change in Weight: Current value is 267.9 lb (121.499 kg) on 10/25/2024 at 0000 No other value found for comparison CURRENT MEDS: lisinopril 5 mg Daily azithromycin 250 mg Daily cefTRIAXone orderable 1,000 mg Q24H Antibiotic enoxaparin 40 mg Daily predniSONE 40 mg Daily [START ON 10/27/2024] vitamin B-1 100 mg Daily folic acid 1 mg Daily Cerovite Jr 1 Tablet Daily vitamin B-1 200 mg Daily pantoprazole 20 mg Daily 30 min before breakfast atorvastatin 80 mg At Bedtime polyethylene glycol 17 g Daily senna 8.6 mg Daily nicotine 21 mg Daily guaiFENesin 600 mg 2x Daily [SEP Hold] albuterol 2.5 mg Q4H RT [SEP Hold] ipratropium 0.5 mg Q4H RT ipratropium-albuterol 3 mL Q4H RT clopidogrel 75 mg Daily PHYSICAL EXAM: General: Uncomfortable appearing on exam, sitting at edge of bed HEENT: EOMI. Conjunctiva clear. No scleral icterus. Heart: RRR. No murmurs or rub. JVD unable to appreciate due to accessory muscle use while breathing Lungs: expiratory wheezing, increase work of breathing on nasal canula Abdomen: Soft. Non-tender. Distended. Extremities: 1+ LE edema Neuro: No focal deficits. A&Ox3 Skin: Warm & dry. IMAGING/OTHER: Chest x-ray was last done on 10/24/2024 Echocardiogram date: Not Found PFTs 08/20/2023 PRE-BRONCH POST-BRONCH Pre LLN Pred ULN %Pred Post %Pred %Chg SPIROMETRY FVC (L) 2.44 2.83 3.78 4.75 64 FEV1 (L) 1.70 2.17 2.94 3.66 57 FEV1/FVC 0.70 0.65 0.78 0.88 89 PEF L/s (L/sec) 5.67 6.13 8.27 10.41 68 FEF50 (L/sec) 1.60 1.66 3.79 5.91 42 FIF50 (L/sec) 3.92 FEF50/FIF50 0.41 90-100 FIVC (L) 2.62 YEW50-43 (L/sec) 0.90 1.20 2.56 4.44 35 Time (sec) 7.48 FET PEF (sec) 0.07 MENDOZA (L) 0.07 Vol Extrap % (%) 3 CONSULTS: None ASSESSMENT & PLAN Elis Bills is a 64 year old male with a history of smoking and COPD presenting with shortness of breath with productive cough, change in sputum. Presentation most consistent with COPDe but pneumonia also on differential given leukocytosis, fever. PROBLEM LIST: Pulmonary: #AHRF #COPD Exacerbation vs asthma exacerbation vs pneumonia #Lung nodules #Mediastinal and Hilar Lymphadenopathy # high pretest probability for T2 phenotype asthma (IgE 127, Serina 15). Abs Eos 3. PFT showing air trapping, normal TLC. Normal FEV1/FVC but low [id number]. Chest CT with multiple sub<6mm lung nodules. No mediastinal LAD. Airway wall thickening. 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 - CTX/azithro - BPH + mucinex - Lasix 20mg IV once - echocardiogram Cardiovascular: #HLD #HTN -continue home statin -home lisinopril is 5mg, can consider increasing GI/: #GERD -continue home PPI Endocrine: #Elevated glucose on BMP - monitor glucose on BMP, he denies diabetes in history - a1c Electrolytes/Nephrology: - no active issues Infectious Disease: See under pulm Neurology/Psychology: #Hx of TIA (2019) -continue home Plavix #Alchohol Abuse #Nicotine abuse -CIWA with prn ativan -nicotine patch -check LFTs -folate and thimaine multivitamin Hematology/Oncology: #no active MSK: #no active F (feeding) - Regular A (analgesia) - Tylenol PRN S (sedation) - na T (thromboembolic prophylaxis) - enoxaparin (LOVENOX) 40 MG/0.4ML injection 40 mg H (head of bed) - 30-45 U (ulcer prophylaxis) - omeprazole G (glycemic control) - trend bmp, check a1c S (Spontaneous breathing trial) - na B (Bowel regimen) - gurpreet/senna I (indwelling cath) - PIV D (de-escalate abx) - Dispo: Home Code Status: DNR Comfort Care Arrest- Do Not Intubate This plan is preliminary until finalized by an attending physician. Valentina Dumont MD PGY1, Internal Medicine Preliminary Stepdown Unit Pager [phone] documented in this encounter [facility] 10-25-2024 History and physical note Images from the original note were not included. [facility] Step Down Unit - H&P Elis Bills Age [age] year old male ROOM: [place] [address] Admitted 10/24/2024 7:57 PM Hospital Day: 2 HISTORY OF PRESENT ILLNESS CHIEF COMPLAINT: No chief complaint on file. Elis Bills is a 64 year old male admitted on 10/24 with a PMH of COPD, severe persistent asthma (FEV1 64% FEV1/FVC 70%) , tobacco abuse, alcohol abuse (30 beers/week) TIA (P2 occlusion 2018, on plavix), GERD, HLD, lumbar laminectomy (07/2024) presenting with shortness of breath. He started to feel SOB in sabianism on Wednesday. Went home and used pulse ox that had low readings in the 80s. Used his home inhalers but they did not help much. Last night woke up at 230am with extreme shortness of breath, felt he could even try to call 911. Used albuterol and it got better but then shortness of breath came back so he called 911. Shortness of breath is worse laying down and with exertion. Sleeps at incline and can't lay flat. Endorses weight loss since back surgery in Jul. No nausea, vomiting, chest pain. He endorses worse cough with brown sputum which is not typical of him. States he was febrile to 102 at home. Had some steroids at home from prior doctor so attempted to take those Wednesday but he did not feel better. He does not wear oxygen or CPAP at home, said he's been sleep tested before and he does not have sleep apnea. recently sick at home with upper respiratory symptoms. Social Drinks 30 beers weekly: 3-4 per day; denies any prior hx of withdrawal or shakiness if he does not drink. Last drink 10/23 PM Smokes 5 cigarettes daily No other drug use ED Course: Outside ED: 180/93 pulse 80 RR 30 80% on RA placed on BIPAP for inc WOB, now on 4L. Temp 99.3 Labs: trop: 51--47 BNP 1007, Mg 1.9, BMP: Na 133 (chronic) K 4.1 Cr 0.89. WBC 18.48 Hgb 12.9 (MCV 87) Covid/Flu negative Lactate 1.8 Imaging: CT PE: No CT evidence of pulmonary embolism with nondiagnostic subsegmental level. Subsegmental patchy peripheral parenchymal changes right upper lobe axial image 141 posterior right lower lobe. Mild subsegmental parenchymal changes lateral left upper lobe. No suspicious nodular mass.. Follow-up imaging until clearance especially in view of adenopathy. Mediastinal and bilateral hilar adenopathy, new finding CXR: No acute radiographic abnormality. EKG: RBBB (known chronic) Interventions: CTX/Azithro Solumedrol x1, duonebs x4, 1L NaCl, BiPAP ROS: As noted in HPI ------- PAST HISTORY ---- No past medical history on file. There is no previous surgical history on file. Current Outpatient Medications Medication Instructions atorvastatin (LIPITOR) 80 mg, Oral, AT BEDTIME clopidogrel (PLAVIX) 75 mg, Oral, DAILY esomeprazole (NEXIUM) 40 mg, Oral, DAILY 30 MIN BEFORE BREAKFAST folic acid 1 mg, Oral, DAILY lisinopril (ZESTRIL) 2.5 mg, Oral, DAILY nicotine (NICODERM CQ) 21 mg, Transdermal, DAILY vitamin B-1 (THIAMINE) 100 mg, Oral, DAILY No family history on file. OBJECTIVE Vitals: 10/25/24414 BP: 165/93 Pulse: Resp: 18 Temp: 97.5 F (36.4 C) SpO2: 95% 16.0 \ 12.2 / 277 / 35.9 \ CBC: 10/25/2024: 12:52 AM 136 98 14 / \ 130 4.0 27 0.90 BMP: 10/25/2024: 12:52 AM Ma.2 I/Os: Intake/Output Summary (Last 24 hours) at 10/25/2024 0653 Last data filed at 10/25/2024 0415 Gross per 24 hour Intake -- Output 950 ml Net -950 ml Change in Weight: Current value is 267.9 lb (121.499 kg) on 10/25/2024 at 0000 No other value found for comparison CURRENT MEDS: lisinopril 5 mg Daily azithromycin 250 mg Daily cefTRIAXone orderable 1,000 mg Q24H Antibiotic enoxaparin 40 mg Daily predniSONE 40 mg Daily [START ON 10/27/2024] vitamin B-1 100 mg Daily folic acid 1 mg Daily Cerovite Jr 1 Tablet Daily vitamin B-1 200 mg Daily pantoprazole 20 mg Daily 30 min before breakfast atorvastatin 80 mg At Bedtime polyethylene glycol 17 g Daily senna 8.6 mg Daily nicotine 21 mg Daily guaiFENesin 600 mg 2x Daily [SEP Hold] albuterol 2.5 mg Q4H RT [SEP Hold] ipratropium 0.5 mg Q4H RT ipratropium-albuterol 3 mL Q4H RT clopidogrel 75 mg Daily PHYSICAL EXAM: General: Uncomfortable appearing on exam, sitting at edge of bed HEENT: EOMI. Conjunctiva clear. No scleral icterus. Heart: RRR. No murmurs or rub. JVD unable to appreciate due to accessory muscle use while breathing Lungs: expiratory wheezing, increase work of breathing on nasal canula Abdomen: Soft. Non-tender. Distended. Extremities: 1+ LE edema Neuro: No focal deficits. A&Ox3 Skin: Warm & dry. IMAGING/OTHER: Chest x-ray was last done on 10/24/2024 Echocardiogram date: Not Found PFTs 08/20/2023 PRE-BRONCH POST-BRONCH Pre LLN Pred ULN %Pred Post %Pred %Chg SPIROMETRY FVC (L) 2.44 2.83 3.78 4.75 64 FEV1 (L) 1.70 2.17 2.94 3.66 57 FEV1/FVC 0.70 0.65 0.78 0.88 89 PEF L/s (L/sec) 5.67 6.13 8.27 10.41 68 FEF50 (L/sec) 1.60 1.66 3.79 5.91 42 FIF50 (L/sec) 3.92 FEF50/FIF50 0.41 90-100 FIVC (L) 2.62 PRQ90-29 (L/sec) 0.90 1.20 2.56 4.44 35 Time (sec) 7.48 FET PEF (sec) 0.07 MENDOZA (L) 0.07 Vol Extrap % (%) 3 CONSULTS: None ASSESSMENT & PLAN Elis Bills is a 64 year old male with a history of smoking and COPD presenting with shortness of breath with productive cough, change in sputum. Presentation most consistent with COPDe but pneumonia also on differential given leukocytosis, fever. PROBLEM LIST: Pulmonary: #AHRF #COPD Exacerbation vs asthma exacerbation vs pneumonia #Lung nodules #Mediastinal and Hilar Lymphadenopathy # high pretest probability for T2 phenotype asthma (IgE 127, Serina 15). Abs Eos 3. PFT showing air trapping, normal TLC. Normal FEV1/FVC but low [id number]. Chest CT with multiple sub<6mm lung nodules. No mediastinal LAD. Airway wall thickening. 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 - CTX/azithro - BPH + mucinex - Lasix 20mg IV once - echocardiogram Cardiovascular: #HLD #HTN -continue home statin -home lisinopril is 5mg, can consider increasing GI/: #GERD -continue home PPI Endocrine: #Elevated glucose on BMP - monitor glucose on BMP, he denies diabetes in history - a1c Electrolytes/Nephrology: - no active issues Infectious Disease: See under pulm Neurology/Psychology: #Hx of TIA (2019) -continue home Plavix #Alchohol Abuse #Nicotine abuse -CIWA with prn ativan -nicotine patch -check LFTs -folate and thimaine multivitamin Hematology/Oncology: #no active MSK: #no active F (feeding) - Regular A (analgesia) - Tylenol PRN S (sedation) - na T (thromboembolic prophylaxis) - enoxaparin (LOVENOX) 40 MG/0.4ML injection 40 mg H (head of bed) - 30-45 U (ulcer prophylaxis) - omeprazole G (glycemic control) - trend bmp, check a1c S (Spontaneous breathing trial) - na B (Bowel regimen) - gurpreet/senna I (indwelling cath) - PIV D (de-escalate abx) - Dispo: Home Code Status: DNR Comfort Care Arrest- Do Not Intubate This plan is preliminary until finalized by an attending physician. Valentina Dumont MD PGY1, Internal Medicine Preliminary Stepdown Unit Pager [phone] [facility] 10-24-2024 Note SARS-COV-2 (AGENT OF COVID-19) RNA: Not detected INFLUENZA A RNA: Not detected INFLUENZA B RNA: Not detected RESPIRATORY SYNCYTIAL VIRUS (RSV) RNA: Not detected [facility] Comment on above: Performed By: #### 9 [id number] #### [facility] CLIA [id number] [address] [place] [address] OF [facility] 09-12-2024 History of Present illness Narrative Program_ID:[id number] Access Code: [email or web address] URL: [email or web address] Date: 09-12-2024 Prepared By: Varun Pratt Program Notes Exercises - Supine Transversus Abdominis Bracing - Hands on Stomach - 2 x daily - 7 x weekly - 2-3 sets - 10 reps - Seated Anti-Rotation Press With Anchored Resistance - 2 x daily - 7 x weekly - 2-3 sets - 10 reps - Supine Lower Trunk Rotation - 2 x daily - 5-7 x weekly - 2 sets - 10 reps - Seated Flexion Stretch with [place] Ball - 2 x daily - 7 x weekly - 2 sets - 10 reps - Seated Thoracic Flexion and Rotation with [place] Ball - 2 x daily - 7 x weekly - 2 sets - 10 reps Images from the original note were not included. Episode Visit Count: 1 Therapist That Will Accept/Oversee The Plan Of Care: Varun Pratt PT. Start of Care Date: 09/12/24 Onset Date: 09/12/23 (a year plus per patient.) Plan of Care Certification Date: 09/12/24 Next Certification Due Date: 10/17/24 Patient Identified by Name and Date of : Yes REHABILITATION AND SPORTS THERAPY PHYSICAL THERAPY EVALUATION PLAN OF CARE: Assessment: Elis Bills presents with diagnosis of s/p L1 Decompression Laminectomy that interferes with physical activities, walking in the community (Upright Posture with Walking.) .The patient presents with impairments in ADL's, flexibility, independence in exercise, posture, range of motion, soft tissue healing, and strength. PROMIS (Patient-Reported Outcomes Measurement Information System) scores were reviewed and identified as within normal limits. Prognosis for therapy is Good due to: current objective clinical presentation .The patient will benefit from skilled therapy services to meet the goals established for this plan of care as noted below. Goals for Episode of Care: established 09/12/24 [place] in home exercise program. Restore pain-free lumbar ROM to WNL to allow for improved functional mobility Stand / Walk to return to regular walking program and ADLs without pain/symptoms. Patient will increase strength of trunk to 4+/5 to allow for return to prior functional status and perform ADLs. Improve posture during ambulation. Patient Goals: Help back stiffness; improve mobility. Time Frame for Goals and Treatment : 11/10/24 Planned Interventions, Frequency, and Duration: Current Frequency: 1x/week Duration: 4 weeks Total Number of Visits Planned: 4 Planned Treatment Interventions: Therapeutic exercise (59279), Neuromuscular re-education (35838), Manual therapy (35366), Therapeutic activities (80926), Self-fci management (90404), Patient/Family/Caregiver Education, Body Mechanics Training PLAN FOR NEXT VISIT: Review, progress & correct HEP PRN; NS Strengthening, Erector Flexibility & Core Stability. Patient demonstrates good understanding of plan of care and treatment. The above goals and plan of care were discussed and agreed upon by patient/family. SUBJECTIVE: LOW back pain without Leg sxs for the past year. Injections without relief and decided to trial surgery. Reports big difference in pre-op back pain since surgery per patient. States pre-op pain was always with rising and then standing/walking. Sitting relieved pain. Since surgery, he can tolerate standing & walking more than before. States he could only do 150-200 feet without feeling discomfort or SOB prior to surgery, now he doesn't have to stop due to his back. States pain was hard the first two weeks post-op, states Oxycodone didn't help due to drowsiness. Overall, feels stiff in the back & feels like he doesn't alkways stand up straight. Has been picking up 80-90# without issue to load something into vehicle. Patient Goals: Help back stiffness; improve mobility. Functional Limitations: physical activities, walking in the community (Upright Posture with Walking.) Prior Level of Function: Independent without limitations Relevant History Past Relevant Medical Conditions: Comments Relevant Medical Conditions Comments: history of COPD, hypercholesterolemia, stroke. +NICOTINE Employment: Retired Intake Information: Prescription present Previous Treatment: Injections , Surgery (Tylenol.) Falls Interview: No positive findings with falls interview Red Flags Vertebral Fracture Clinical Reasoning: No identified risk factors Abdominal Aortic Aneurysm Clinical Reasoning: No identified risk factors. Cancer Red Flags: Age >50 or <20 Cancer Clinical Reasoning: Proceed with caution Infection Clinical Reasoning: No identified risk factors. Cauda Equina Syndrome Clinical Reasoning: No identified risk factors. Red Flags - Cervical Cancer Red Flags: Age >50 or <20 Cancer Clinical Reasoning: Proceed with caution Infection Clinical Reasoning: No identified risk factors. Pain: Pain Pain Level: 0 (Denies Pain) Pain Location: Low Back/Lumbar Spine- Midline Post Treatment Pain Post Treatment Pain Level: No Change Post Treatment Pain Location: Low Back/Lumbar Spine- Midline PROMIS Scales 09/12/2024 Higher is Better Self-Eff Symptom - T Score 48 (Average) Self-Eff Symptom - Percentile 42 Proxy-reported 09/12/2024 Lower is Better Pain Interference - T Score 51 (within normal limits) Pain Interference - Percentile 46 Proxy-reported T-scores: mean of general population = 50. 5 points is clinically meaningfully difference Percentiles provide an indication of how the patient's score ranks in relation to the general population. Higher percentile rankings indicate better function/quality of life. 50th percentile is the average of the general population and indicates half of respondents had a worse score. OBJECTIVE MEASURES WITH LEVEL OF FUNCTION: Posture / Alignment Posture: Forward head, Rounded shoulders Spine Observations Spine presents with: Incisional Low Back Midline Tenderness. Sensation - Lumbar Sensation: Grossly Intact Lumbar Spine AROM Lumbar Flexion: Normal Lumbar Extension: Minimal limitation Lumbar R Side Coleridge: Minimal limitation Lumbar L Side Coleridge: Minimal limitation Lumbar R Side-Bend: Minimal limitation Lumbar L Side-Bend: Minimal limitation Lumbar R Rotation: Minimal limitation Lumbar L Rotation: Minimal limitation LE Strength Trunk Strength: 3+/5 R LE Strength: Grossly 5/5 L LE Strength: Grossly 5/5 Special Tests - Hip and Spine Hip and Spine Special Tests: SLR Test, Slump Test SLR Test: Right Negative, Left Negative Slump Test: Right Negative, Left Negative Gait Gait Observation: Slight upper trunk slump; otherwise unremarkable. Education: Education Learning Preferences: Demonstration, Explanation, Printed Materials Barriers: None Learning/educational needs: Home exercise program, Safety, Plan of Care, Health promotion Education Provided: Yes, see treatment interventions for education provided Education Provided To: Patient Education Mode/Type: Demonstration, Explanation/Discussion, Literature/Printed Materials Response to Education/Teach Back: States/Identifies TREATMENT: PT Treatment Interventions: Therapeutic Exercise Evaluation Therapeutic Exercise: 1: Reviewed HEP Exercises. PT provided demonstration and cueing of exercises for proper completion. Pt demonstrated understanding. 2: Discussed therapy goals, exercise purpose, HEP handout provided. Discussed exam findings. Discussed POC & Treatment Options moving forward. 3: *Supine TrA Bracing: x10, 5-sec holds. 4: *Seated Pallof: 1x10 each, GTB. 5: *Seated niuean ball flexion rollouts: x10. (discussed computer chair use at home) 6: *Seated niuean ball flexion+rotation rollouts: x10 each way (discussed computer chair use at home) 7: *HL LTR: x10, 3-5sec holds each way. Skilled Intervention: Patient was educated in proper exercise technique and purpose for exercises. Reviewed and educated patient on additions/changes for home exercise program as above (*). Skilled judgment was used in selection of appropriate interventions. Provided written instruction for home exercise program to facilitate proper performance and compliance. Correct performance of therapeutic exercises was facilitated with verbal and tactile cuing. Billing * Evaluation Low Complexity: 1 Unit Therapeutic Exercise Treatment Minutes: 24 Skilled Treatment Time Minutes (timed and untimed codes): 45 Total Session Time (minutes): 45 Session Start Time : 828 Session Stop Time : 913 Varun Pratt PT, DPT. documented in this encounter [facility] 09-12-2024 Note HNO ID: [id number] Author: VARUN PRATT, SHARAN Service: ? Author Type: Physical Therapist Type: Progress Notes Filed: 09/12/2024 12:56 Note Text: Episode Visit Count: 1 Therapist That Will Accept/Oversee The Plan Of Care: Varun Pratt PT. Start of Care Date: 09/12/24 Onset Date: 09/12/23 (a year plus per patient.) Plan of Care Certification Date: 09/12/24 Next Certification Due Date: 10/17/24 Patient Identified by Name and Date of : Yes [facility]AB[facility]TS THERAPY PHYSICAL THERAPY EVALUATION PLAN OF CARE: Assessment: Elis Bills presents with diagnosis of s/p L1 Decompression Laminectomy that interferes with physical activities, walking in the community (Upright Posture with Walking.) .The patient presents with impairments in ADL's, flexibility, independence in exercise, posture, range of motion, soft tissue healing, and strength. PROMIS? (Patient-Reported Outcomes Measurement Information System) scores were reviewed and identified as within normal limits. Prognosis for therapy is Good due to: current objective clinical presentation .The patient will benefit from skilled therapy services to meet the goals established for this plan of care as noted below. Goals for Episode of Care: established 09/12/24 [place] in home exercise program. Restore pain-free lumbar ROM to WNL to allow for improved functional mobility Stand / Walk to return to regular walking program and ADLs without pain/symptoms. Patient will increase strength of trunk to 4+/5 to allow for return to prior functional status and perform ADLs. Improve posture during ambulation. Patient Goals: Help back stiffness; improve mobility. Time Frame for Goals and Treatment : 11/10/24 Planned Interventions, Frequency, and Duration: Current Frequency: 1x/week Duration: 4 weeks Total Number of Visits Planned: 4 Planned Treatment Interventions: Therapeutic exercise (53390), Neuromuscular re-education (92143), Manual therapy (10565), Therapeutic activities (58849), Self-fci management (05369), Patient/Family/Caregiver Education, Body Mechanics Training PLAN FOR NEXT VISIT: Review, progress AND correct HEP PRN; NS Strengthening, Erector Flexibility AND Core Stability. Patient demonstrates good understanding of plan of care and treatment. The above goals and plan of care were discussed and agreed upon by patient/family. SUBJECTIVE: LOW back pain without Leg sxs for the past year. Injections without relief and decided to trial surgery. Reports big difference in pre-op back pain since surgery per patient. States pre-op pain was always with rising and then standing/walking. Sitting relieved pain. Since surgery, he can tolerate standing AND walking more than before. States he could only do 150-200 feet without feeling discomfort or SOB prior to surgery, now he doesn't have to stop due to his back. States pain was hard the first two weeks post-op, states Oxycodone didn't help due to drowsiness. Overall, feels stiff in the back AND feels like he doesn't alkways stand up straight. Has been picking up 80-90# without issue to load something into vehicle. Patient Goals: Help back stiffness; improve mobility. Functional Limitations: physical activities, walking in the community (Upright Posture with Walking.) Prior Level of Function: Independent without limitations Relevant History Past Relevant Medical Conditions: Comments Relevant Medical Conditions Comments: history of COPD, hypercholesterolemia, stroke. +NICOTINE Employment: Retired Intake Information: Prescription present Previous Treatment: Injections , Surgery (Tylenol.) Falls Interview: No positive findings with falls interview Red Flags Vertebral Fracture Clinical Reasoning: No identified risk factors Abdominal Aortic Aneurysm Clinical Reasoning: No identified risk factors. Cancer Red Flags: Age >50 or <20 Cancer Clinical Reasoning: Proceed with caution Infection Clinical Reasoning: No identified risk factors. Cauda Equina Syndrome Clinical Reasoning: No identified risk factors. Red Flags - Cervical Cancer Red Flags: Age >50 or <20 Cancer Clinical Reasoning: Proceed with caution Infection Clinical Reasoning: No identified risk factors. Pain: Pain Pain Level: 0 (Denies Pain) Pain Location: Low Back/Lumbar Spine- Midline Post Treatment Pain Post Treatment Pain Level: No Change Post Treatment Pain Location: Low Back/Lumbar Spine- Midline PROMIS Scales 09/12/2024 Higher is Better Self-Eff Symptom - T Score 48 (Average) Self-Eff Symptom - Percentile 42 Proxy-reported 09/12/2024 Lower is Better Pain Interference - T Score 51 (within normal limits) Pain Interference - Percentile 46 Proxy-reported T-scores: mean of general population = 50. 5 points is clinically meaningfully difference Percentiles provide an indication of how the patient's score ranks in relation to the general population. Hi (more content not included)... [facility] 09-05-2024 Telephone encounter Note LVM that appt for 09/18/24 has been cancelled due to not needing appt on 09/18/24 and again on 10/19/24. Told patient to call office if he has any questions regarding the cancelled appt on 09/18/24. [facility] 09-05-2024 Miscellaneous Notes LVM that appt for 09/18/24 has been cancelled due to not needing appt on 09/18/24 and again on 10/19/24. Told patient to call office if he has any questions regarding the cancelled appt on 09/18/24. documented in this encounter [facility] 08-28-2024 Telephone encounter Note Referral placed for physical therapy in the [facility] Internal Referral Portal. Confirmation # [id number] Puma Nicolas Ma [facility] 08-28-2024 Miscellaneous Notes Referral placed for physical therapy in the [facility] Internal Referral Portal. Confirmation # [id number] Puma Nicolas Ma documented in this encounter [facility] 08-10-2024 History of Present illness Narrative NEUROSURGERY POST-OP NOTE Lois Kee MD [facility] Date of visit: August 10, 2024 Patient Name: Mr.Donald Tim Bills Date of : 1960 Current Age: [age] year old Sex: male MRN/E# [id number] Last Office Visit: 08/02/2024 SURGERY: L1 decompression laminectomy - 07/28/2024 Pre-Surgical Symptoms: right low back pain Past Medical/Surgical History: Elis Bills is a 63 year old male who is referred by Bertha Schumacher APRN, CNP with pain management for neurosurgical evaluation. The patient has a history of COPD, hypercholesterolemia, stroke. +NICOTINE HPI: Patient is having their 2 week post operative visit. Mr. Bills was seen last in the office on 06/05/2024 for right sided low back pain and imaging revealed a significant amount of epidural lipomatosis causing severe stenosis at L2-3 and L3-4. He also had retrolisthesis at L4 over L5 and likely pars defect at that level. Given the findings, he underwent procedure above. Patient feels that surgery went well and resolved his presurgical low back pain. He has some low back pain to the incisional area. He denies any paresthesia, weakness, falls. He is pleased with his progress. Incision: Dry and intact, without redness - tiffani removed, tolerated well Current Outpatient Medications Medication Sig Dispense Refill clopidogrel (PLAVIX) 75 mg tablet Take 1 tablet by mouth once daily. Patient should start on August 05, 2024. acetaminophen (TYLENOL) 325 mg tablet Take 2 tablets by mouth every 6 hours. docusate sodium (COLACE) 100 mg capsule Take 1 capsule by mouth two times a day. cyclobenzaprine (FLEXERIL) 10 mg tablet Take 1 tablet by mouth three times a day as needed. 15 tablet 0 polyethylene glycol 3350 17 gram packet Take 1 Packet by mouth once daily as needed. Dissolve dose in 4 - 8 ounces of liquid and take as directed. BREZTRI AEROSPHERE 160-9-4.8 mcg/actuation HFA aerosol inhaler INHALE 2 PUFFS TWICE DAILY, RINSE MOUTH AND THROAT AFTER USE. omeprazole (PRILOSEC) 10 mg capsule Take 10 mg by mouth once daily. nicotine polacrilex (NICORETTE) 4 mg gum Take 1 Each by mouth as needed. 300 Each 3 albuterol HFA (PROVENTIL HFA, VENTOLIN HFA) 90 mcg/actuation inhaler Inhale 2 Puffs as instructed every 4 hours as needed for wheezing/shortness of breath. 3 Each 3 albuterol (PROVENTIL) 2.5 mg /3 mL (0.083 %) nebulizer solution Use 3 mL via nebulizer every 4 hours as needed for wheezing/shortness of breath. Inhale over 5-15 minutes atorvastatin (LIPITOR) 80 mg tablet Take 80 mg by mouth once daily. montelukast (SINGULAIR) 10 mg tablet Take 1 tablet by mouth daily at bedtime. 90 tablet 3 budesonide (PULMICORT) 0.5 mg/2 mL nebulizer solution Use 2 mL via nebulizer two times a day. 360 mL 3 lisinopril 2.5 mg tablet Take 2.5 mg by mouth once daily. No current facility-administered medications for this visit. Objective Review of Systems Constitutional: Negative for chills, fatigue and fever. HENT: Negative for ear pain, hearing loss and tinnitus. Eyes: Negative for photophobia, pain and visual disturbance. Respiratory: Negative for shortness of breath. Cardiovascular: Negative for chest pain. Gastrointestinal: Negative for constipation, diarrhea, nausea and vomiting. Endocrine: Negative for polydipsia, polyphagia and polyuria. Genitourinary: Negative for difficulty urinating, frequency and urgency. Musculoskeletal: Positive for back pain. Negative for gait problem, neck pain and neck stiffness. Skin: Negative for color change. Neurological: Negative for dizziness, weakness, light-headedness and numbness. Psychiatric/Behavioral: Negative for agitation and confusion. The patient is not nervous/anxious. PHYSICAL EXAM: Mental State : Alert, memory function unremarkable. Attention span and concentration normal for patient's age. Speech normal, no receptive or expressive speech deficit. Recent and remote memory normal. Orientation : Oriented to person, place and time. Cranial Nerves : Grossly intact. Sensory: Normal Sensation in upper and lower extremities and trunk to touch and noxious stimuli. Motor: Normal muscle tone and bulk. No tremor or uncontrollable movements. No spasticity or tremor. Gait and Station: Casual gait is normal including stance, stride, and arm swing. STRENGTH: Upper Extremity Strength Exam Right Left Elbow Flexion 5/5 5/5 Elbow Extension 5/5 5/5 Finger Flexion 5/5 5/5 Finger Extension 5/5 5/5 Finger Abduction 5/5 5/5 Lower Extremity Strength Exam Right Left Hip Flexion 5/5 5/5 Knee Flexion 5/5 5/5 Knee Extension 5/5 5/5 Dorsiflexion 5/5 5/5 Plantarflexion 5/5 5/5 WOUND ASSESSMENT: Healing well PAIN EVALUATION No data found in the last 1 encounters. Data Review: IMAGING STUDIES: No new imaging obtained Assessment & Plan: Mr. Bills presents for his 2-week postoperative visit after L2-4 laminectomy. He had a significant amount of compressive epidural lipomatosis with claudicatory back pain. Today, he reports improvement in his low back pain. He is able to stand for longer periods of time. He appears much more mobile in the office today. His incision is well-healed and he has good strength in his legs. He is very pleased with his progress after surgery so far. He does have some surgical site pain, but this is improving. He is no longer taking narcotics. I advised him to avoid lifting more than 15 pounds for the next 2 weeks, and then he may gradually return to his normal activity. I will see him back in about 2 and half months with flexion-extension x-rays to assess his progress. All questions were answered. Attribution: The following portions of the patient's history were reviewed, confirmed, and updated as necessary: allergies, current medications, past family history, past medical history, past social history, past surgical history, problem list, HPI, and ROS obtained by others. Some elements may be copied from a previous office note and have been reviewed/updated where appropriate. All portions reflect current medical decision making from today. The clinical and radiographic findings as well as the risks, benefits and alternatives of treatment have been reviewed in detail with the patient. Advised to call the office if symptoms worsen or new symptoms develop. Patient expressed understanding and is in agreement with plan. Lois Kee MD [facility] This note was partially generated using [employer] voice recognition system, and there may be some incorrect words, spellings, and punctuation that were not noted in checking the note before saving. documented in this encounter [facility] 08-10-2024 Note HNO ID: [id number] Author: LOIS KEE MD Service: ? Author Type: Physician Type: Progress Notes Filed: 08/10/2024 13:30 Note Text: NEUROSURGERY POST-OP NOTE Lois Kee MD [facility] Date of visit: August 10, 2024 Patient Name: Mr.Donald Tim Bills Date of : 1960 Current Age: [age] year old Sex: male MRN/E# [id number] Last Office Visit: 08/02/2024 SURGERY: L1 decompression laminectomy - 07/28/2024 Pre-Surgical Symptoms: right low back pain Past Medical/Surgical History: Elis Bills is a 63 year old male who is referred by Bertha Schumacher APRN, CNP with pain management for neurosurgical evaluation. The patient has a history of COPD, hypercholesterolemia, stroke. +NICOTINE HPI: Patient is having their 2 week post operative visit. Mr. Bills was seen last in the office on 06/05/2024 for right sided low back pain and imaging revealed a significant amount of epidural lipomatosis causing severe stenosis at L2-3 and L3-4. He also had retrolisthesis at L4 over L5 and likely pars defect at that level. Given the findings, he underwent procedure above. Patient feels that surgery went well and resolved his presurgical low back pain. He has some low back pain to the incisional area. He denies any paresthesia, weakness, falls. He is pleased with his progress. Incision: Dry and intact, without redness - tiffani removed, tolerated well Current Outpatient Medications Medication Sig Dispense Refill clopidogrel (PLAVIX) 75 mg tablet Take 1 tablet by mouth once daily. Patient should start on August 05, 2024. acetaminophen (TYLENOL) 325 mg tablet Take 2 tablets by mouth every 6 hours. docusate sodium (COLACE) 100 mg capsule Take 1 capsule by mouth two times a day. cyclobenzaprine (FLEXERIL) 10 mg tablet Take 1 tablet by mouth three times a day as needed. 15 tablet 0 polyethylene glycol 3350 17 gram packet Take 1 Packet by mouth once daily as needed. Dissolve dose in 4 - 8 ounces of liquid and take as directed. BREZTRI AEROSPHERE 160-9-4.8 mcg/actuation HFA aerosol inhaler INHALE 2 PUFFS TWICE DAILY, RINSE MOUTH AND THROAT AFTER USE. omeprazole (PRILOSEC) 10 mg capsule Take 10 mg by mouth once daily. nicotine polacrilex (NICORETTE) 4 mg gum Take 1 Each by mouth as needed. 300 Each 3 albuterol HFA (PROVENTIL HFA, VENTOLIN HFA) 90 mcg/actuation inhaler Inhale 2 Puffs as instructed every 4 hours as needed for wheezing/shortness of breath. 3 Each 3 albuterol (PROVENTIL) 2.5 mg /3 mL (0.083 %) nebulizer solution Use 3 mL via nebulizer every 4 hours as needed for wheezing/shortness of breath. Inhale over 5-15 minutes atorvastatin (LIPITOR) 80 mg tablet Take 80 mg by mouth once daily. montelukast (SINGULAIR) 10 mg tablet Take 1 tablet by mouth daily at bedtime. 90 tablet 3 budesonide (PULMICORT) 0.5 mg/2 mL nebulizer solution Use 2 mL via nebulizer two times a day. 360 mL 3 lisinopril 2.5 mg tablet Take 2.5 mg by mouth once daily. No current facility-administered medications for this visit. Objective Review of Systems Constitutional: Negative for chills, fatigue and fever. HENT: Negative for ear pain, hearing loss and tinnitus. Eyes: Negative for photophobia, pain and visual disturbance. Respiratory: Negative for shortness of breath. Cardiovascular: Negative for chest pain. Gastrointestinal: Negative for constipation, diarrhea, nausea and vomiting. Endocrine: Negative for polydipsia, polyphagia and polyuria. Genitourinary: Negative for difficulty urinating, frequency and urgency. Musculoskeletal: Positive for back pain. Negative for gait problem, neck pain and neck stiffness. Skin: Negative for color change. Neurological: Negative for dizziness, weakness, light-headedness and numbness. Psychiatric/Behavioral: Negative for agitation and confusion. The patient is not nervous/anxious. PHYSICAL EXAM: Mental State : Alert, memory function unremarkable. Attention span and concentration normal for patient's age. Speech normal, no receptive or expressive speech deficit. Recent and remote memory normal. Orientation : Oriented to person, place and time. Cranial Nerves : Grossly intact. Sensory: Normal Sensation in upper and lower extremities and trunk to touch and noxious stimuli. Motor: Normal muscle tone and bulk. No tremor or uncontrollable movements. No spasticity or tremor. Gait and Station: Casual gait is normal including stance, stride, and arm swing. STRENGTH: Upper Extremity Strength Exam Right Left Elbow Flexion 5/5 5/5 Elbow Extension 5/5 5/5 Finger Flexion 5/5 5/5 Finger Extension 5/5 5/5 Finger Abduction 5/5 5/5 Lower Extremity Strength Exam Right Left Hip Flexion 5/5 5/5 Knee Flexion 5/5 5/5 Knee Extension 5/5 5/5 Dorsiflexion 5/5 5/5 Plantarflexion 5/5 5/5 WOUND ASSESSMENT: Healing well PAIN EVALUATION No data found in the last 1 encounters. Data Review: IMAGING STUDIES: No new angelica (more content not included)... [facility] 08-02-2024 Telephone encounter Note Patient phones requesting refills as follows: Requested Prescriptions Pending Prescriptions Disp Refills oxyCODONE IR (ROXICODONE) 5 mg immediate release tablet 9 tablet 0 Sig: Take 1 tablet by mouth every 8 hours as needed for up to 3 days. Please review and advise. Helen Decker MA [facility] 08-02-2024 Miscellaneous Notes Patient phones requesting refills as follows: Requested Prescriptions Pending Prescriptions Disp Refills oxyCODONE IR (ROXICODONE) 5 mg immediate release tablet 9 tablet 0 Sig: Take 1 tablet by mouth every 8 hours as needed for up to 3 days. Please review and advise. Helen Decker MA documented in this encounter [facility] 07-29-2024 Note HNO ID: [id number] Author: SINGH ALLEN PA-C Service: Hospital Medicine Author Type: Physician Transition Rn Type: Plan of Care Filed: 07/29/2024 05:08 Note Text: This STEVE was notified about patient's sodium lvl of 121 by RN. Serum Osm 270. Random Na <20. Urine Osm 368. Consulted Nephrology due to decreasing NA lvls. Singh Allen PA-C [facility] 07-28-2024 Note HNO ID: [id number] Author: INGE REYNOSO APRN.MATERIAL SCHEDULER Service: Anesthesiology Author Type: Nurse Pit Crane Operator Type: Anesthesia Procedure Notes Filed: 07/28/2024 12:07 Note Text: ANESTHESIOLOGY PROCEDURE NOTE Airway General Information Procedure Start Time/Medication Administration: 07/28/2024 12:03 PM Procedure End Time: 07/28/2024 12:03 PM Patient location during procedure: OR Timeout Performed Pre-procedure: timeout performed Consent Obtained: Yes Patient identity confirmed: arm band, care assembler steam and gas turbine and patient sedated or unresponsive Staffing MATERIAL SCHEDULER: Inge Reynoso APRN.MATERIAL SCHEDULER Performed by: MATERIAL SCHEDULER Indications and Patient Condition Indications for airway management: anesthesia and airway protection Preoxygenated: yes anesthesia circuit Method: sleep Cricoid Pressure: No Manual In-Line Stabilization: No Difficult Mask: No Final Airway Details Final airway type: endotracheal airway Final Endotracheal Airway: ETT Cuffed: yes Successful intubation technique: direct laryngoscopy Endotracheal tube insertion site: oral Blade: Ekaterina Blade size: #4 ETT size (mm): 8.0 Measured from: lips Measurement (cm): 23 Placement verified by: capnometry Cormack-Lehane Classification: grade I - full view of glottis Number of attempts at approach: 1 Failed airway: no Unrecognized esophageal intubation: no Airway not difficult SIGNATURE: Inge Reynoso APRN.MATERIAL SCHEDULER PATIENT NAME: Elis Bills DATE: July 28, 2024 TIME: 12:06 PM CSN: [id number] [facility] 07-28-2024 Note HNO ID: [id number] Author: KYLIE MALDONADO RN Service: Nursing Author Type: Registered Nurse Type: Nursing Progress Note Filed: 07/28/2024 09:50 Note Text: Dr. Grajeda notified: pt chewing nicorette gum, discarded at 0935. [facility] 07-27-2024 Telephone encounter Note Contacted patient to remind them of their arrival time for surgery with Dr. Lois Kee on 07/28/24. Patient is to arrive at [facility] at 8:30am for surgery at 10:30am. Spoke with patient and they are aware of all arrival information. [facility] 07-27-2024 Miscellaneous Notes Contacted patient to remind them of their arrival time for surgery with Dr. Lois Kee on 07/28/24. Patient is to arrive at [facility] at 8:30am for surgery at 10:30am. Spoke with patient and they are aware of all arrival information. documented in this encounter [facility] 07-21-2024 Telephone encounter Note Completed/signed form faxed back to Dr. Kee's office. Dalia Segura [facility] 07-21-2024 Miscellaneous Notes Completed/signed form faxed back to Dr. Kee's office. Dalia Segura Type of form: Medical clearance for L2-L4 Laminectomy DOS: 07/28/24 TIMO Form received via fax When form is completed, Fax form to [phone] Form has been forwarded to Physician Mailbox: Dr. Vu Segura documented in this encounter [facility] 07-20-2024 Telephone encounter Note Type of form: Medical clearance for L2-L4 Laminectomy DOS: 07/28/24 TIMO Form received via fax When form is completed, Fax form to [phone] Form has been forwarded to Physician Mailbox: Dr. Vu Segura [facility] 07-17-2024 Telephone encounter Note Sounds good thank you. [facility] Work Phone: 07-17-2024 Miscellaneous Notes Sounds good thank you. documented in this encounter [facility] 07-14-2024 Note HNO ID: [id number] Author: HARVEY PURVIS APRN.EXPORT 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 Service: Anesthesiology Author Type: Nurse Practitioner Type: Progress Notes Filed: 07/14/2024 14:48 Note Text: Summary: PAT CC ROMÁN Please review ECG with Anesthesia if needed and see if pulmonary optimization needed before the surgery. Surgery scheduled 07/28/[address] Kee under general anesthesia. METS - 5.5 Had wheezing during PAT, denies SOB Assessment Patient has the following medical conditions which may affect stefan-operative course: Pre-op examination Medical conditions which may affect the perioperative course were address in today's visit. Spinal stenosis of lumbar region with neurogenic claudication Surgery scheduled 07/28/23 Obesity, Class III, BMI >= 40 BMI 41 COPD with acute exacerbation (HCC) Pt uses rescue inhaler as needed reports may 3 times per week. Uses nebulizer twice a day. Denies pneumonia in the last 6 months. Reports last hospitalization due to COPD exacerbation was 11/2023. Today + wheezing Instructed to use inhaler as prescribed and bring DOS. Follows by Pulmonology - last OV 11/11/23 Hyperlipidemia Stable on Statin - instructed to take as prescribed Gastroesophageal reflux disease Stable on Omeprazole - instructed to take DOS 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 artery (HCC) On Plavix, statin denies residual Nicotine use disorder Quit smoking a week or so ago (04/06/24) Smoked for about 35 years 1- 2 ppd HTN (hypertension) Stable on lisinopril - instructed to hold DOS RBBB (right bundle branch block) Patient denies any symptoms. ECG today ECG 11/2023 SINUS RHYTHM WITH PREMATURE SUPRAVENTRICULAR COMPLEXES RIGHT BUNDLE BRANCH BLOCK ABNORMAL ECG Quinn Activity Status Index: METS: Climb a flight of stairs or walk up a hill (5.50 METs) DASI Score: 5.5 [facility] 07-14-2024 History of Present illness Narrative Radiology Service Progress Note PATIENT NAME: Elis Bills DATE OF SERVICE: July 14, 2024 TIME: 1:59 PM PATIENT IDENTITY VERIFICATION COMPLETED USING TWO (2) IDENTIFIERS: Name and Date of confirmed by patient verbally and Name and Date of confirmed by identification band. FALL SCREENING: Has the patient had 2 falls in the last year or 1 fall with injury or currently using an Ambulatory Assistive Device (Walker, Cane, Wheelchair, Crutches, etc.)? No PATIENT GENDER DATA: Male PATIENT RELEVANT IMPLANT DATA REVIEWED: Not Applicable PATIENT PRESENTS WITH AN IMPLANTABLE OR ATTACHED PROFILE TRIMMER: No RADIOLOGY DEPARTMENT: General X-ray: Exam(s) Completed: Chest X-Ray PERIPHERAL IV DATA: Not applicable SIGNED BY: RT Jesus Alberto(Yareli) July 14, 2024 1:59 PM documented in this encounter [facility] 07-14-2024 Note HNO ID: [id number] Author: SARITA REYES RT(Yareli) Service: Radiology Author Type: Technologist Type: Progress Notes Filed: 07/14/2024 13:59 Note Text: Radiology Service Progress Note PATIENT NAME: Elis Bills DATE OF SERVICE: July 14, 2024 TIME: 1:59 PM PATIENT IDENTITY VERIFICATION COMPLETED USING TWO (2) IDENTIFIERS: Name and Date of confirmed by patient verbally and Name and Date of confirmed by identification band. FALL SCREENING: Has the patient had 2 falls in the last year or 1 fall with injury or currently using an Ambulatory Assistive Device (Walker, Cane, Wheelchair, Crutches, etc.)? No PATIENT GENDER DATA: Male PATIENT RELEVANT IMPLANT DATA REVIEWED: Not Applicable PATIENT PRESENTS WITH AN IMPLANTABLE OR ATTACHED PROFILE TRIMMER: No RADIOLOGY DEPARTMENT: General X-ray: Exam(s) Completed: Chest X-Ray PERIPHERAL IV DATA: Not applicable SIGNED BY: RT Jesus Alberto(R) July 14, 2024 1:59 PM [facility] 07-14-2024 History and physical note Images from the original note were not included. [facility] HISTORY AND PHYSICAL EXAMINATION SERVICE DATE: 07/14/2024 SERVICE TIME: 2:48 PM PRIMARY CARE PHYSICIAN: Pilar Steele DO Assessment Patient has the following medical conditions which may affect stefan-operative course: Pre-op examination Medical conditions which may affect the perioperative course were address in today's visit. Spinal stenosis of lumbar region with neurogenic claudication Surgery scheduled 07/28/23 Obesity, Class III, BMI >= 40 BMI 41 COPD with acute exacerbation (HCC) Pt uses rescue inhaler as needed reports may 3 times per week. Uses nebulizer twice a day. Denies pneumonia in the last 6 months. Reports last hospitalization due to COPD exacerbation was 11/2023. Instructed to use inhaler as prescribed and bring DOS. Follows by Pulmonology - last OV 11/11/23 Hyperlipidemia Stable on Statin - instructed to take as prescribed Gastroesophageal reflux disease Stable on Omeprazole - instructed to take DOS 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 artery (HCC) On Plavix, statin denies residual Nicotine use disorder Quit smoking a week or so ago (04/06/24) Smoked for about 35 years 1- 2 ppd HTN (hypertension) Stable on lisinopril - instructed to hold DOS RBBB (right bundle branch block) Patient denies any symptoms. ECG today ECG 11/2023 SINUS RHYTHM WITH PREMATURE SUPRAVENTRICULAR COMPLEXES RIGHT BUNDLE BRANCH BLOCK ABNORMAL ECG Quinn Activity Status Index: METS: Climb a flight of stairs or walk up a hill (5.50 METs) DASI Score: 5.5 Patient denies any chest pain or undue shortness of breath with the above physical activity. Clinical Frailty Scale: 4. Apparently vulnerable ARISCAT Score: Age: 51-80 Preoperative SpO2: >=96% Respiratory infection in the last month: No Preoperative anemia: No Surgical incision: peripheral Duration of surgery: 2-3 hrs Emergency procedure: No ARISCAT Score: 19 ANESTHESIA FINDINGS: Intubation History: No history of difficult intubation. No abnormal airway history Significant Anesthesia Considerations: none Airway History: No history of difficult airway No abnormal airway history I - PHYSICAL EVALUATION AIRWAY Patient intubated: No. DENTAL Dental findings: missing tooth/teeth and teeth intact. II - ANESTHESIA PLAN Anesthetic Plan: general Beta Kumar Monitoring Plan Post Procedure Analgesic Plan Prepared for Surgery: CONSULTS: The following consults have been initiated at this time: primary care/internal medicine (in [facility]). Planned Anesthetic: general The Following Tests/Procedures Have Been Initiated: Orders Placed This Encounter Confirm Blood Type Standing Status: Future Number of Occurrences: 1 Standing Expiration Date: 10/13/2024 Order Specific Question: Did Blood Bank direct you to place this order: Answer: No - Presurgical Workflow MYRON ApoVax 160-9-4.8 mcg/actuation HFA aerosol inhaler Sig: INHALE 2 PUFFS TWICE DAILY, RINSE MOUTH AND THROAT AFTER USE. REASON FOR VISIT: Elis Bills is a 64 year old male who is scheduled for Procedure(s): DECOMPRESSION LAMINECTOMY LUMBAR POSTERIOR LEVEL 1 (N/A) DECOMPRESSION LAMINECTOMY 1ST ADD'L LUMBAR SEGMENT (N/A) at the request of @REFPROV2@ for routine H&P. My final recommendation will be communicated back to the requesting physician by way of shared medical record or letter. Subjective The patient has the following: COVID-19 Immunization Status Overdue - Covid-19 Vaccine ( season) Never done No completion, postpone, frequency change, or communication history exists for this topic. CHIEF COMPLAINT: The reason for this visit is to perform a comprehensive review of the patient's past medical history, assess their current health status and obtain any additional testing required based on anesthesia guidelines. We will also identify any potential anesthesia problems or contraindications to the planned procedure. HPI: Patient is a 64 year old male who presents for pre surgical testing. Patient reports back pain for the last year. Reports he is working with pain management and had received multiple injections in the past, getting 5 days of relief from his most recent injection. Reports continued right low back pain following the ablation. Reports pain really bad when I walk. After discussing with surgeon, patient agrees to surgical intervention. Risk and benefits discussed by surgeon. Patient denies any other problems or concerns at this time. REVIEW OF SYSTEMS: General: Negative for: fever. Neurological: Positive for: strokes. Negative for: delirium, dementia, seizures and TIA. Respiratory: Positive for: asthma, COPD and tobacco use (former). Negative for: URI < 2 weeks and obstructive sleep apnea. Cardiovascular: Positive for: hyperlipidemia and hypertension Negative for: atrial fibrillation, CAD, chest pain, DVT/PE and recent SD. GI: Positive for: GERD Negative for: abdominal pain, dysphagia, hepatitis, nausea, vomiting and ETOH >2 drinks/day. : Negative for: dysuria, hematuria, urinary incontinence and renal failure. Endocrine: No history of diabetes. Has not taken steroids within the past 30 days. No history of endocrinological symptoms or problems. Negative for: diabetes mellitus and hypothyroidism. Hematology: Negative for: anemia, factor V Leiden, hemophilia and von Willebrand disease. Oncology: No history of CA metastasis, chemo within 30 days, or radiotherapy within 90 days. No history of oncological symptoms or problems. Psych: No history of psychiatric symptoms or problems. Negative for: anxiety. Musculoskeletal: See HPI. Skin: Negative for lesions, rash and itching. Implanted Devices: Has implanted device Implants: bilater total hips. PAST MEDICAL HISTORY Diagnosis Date COPD (chronic obstructive pulmonary disease) (HCC) Hypercholesteremia Lung nodules Spinal stenosis of lumbar region with neurogenic claudication Stroke (HCC) Unspecified right bundle-branch block PAST SURGICAL HISTORY Procedure Laterality Date PILONIDAL CYST/SINUS EXCISION TOTAL HIP REPLACEMENT Bilateral FAMILY HISTORY Problem Relation Age of Onset No Known Problems Mother Leukemia Father Social History Tobacco Use Smoking status: Former Current packs/day: 0.50 Types: Cigarettes Smokeless tobacco: Never Tobacco comments: Quit smoking a week or so ago (04/06/24) Smoked for about 35 years 1- 2 ppd Vaping Use Vaping status: Never Used Substance Use Topics Alcohol use: Yes Comment: 30 cans beer per week Drug use: Never Prior to Admission medications as of 07/14/24 1252 Medication Sig Last Dose Taking BREZTRI AEROSPHERE 160-9-4.8 mcg/actuation HFA aerosol inhaler INHALE 2 PUFFS TWICE DAILY, RINSE MOUTH AND THROAT AFTER USE. Yes omeprazole (PRILOSEC) 10 mg capsule Take 10 mg by mouth once daily. Taking Yes nicotine polacrilex (NICORETTE) 4 mg gum Take 1 Each by mouth as needed. Taking Yes albuterol HFA (PROVENTIL HFA, VENTOLIN HFA) 90 mcg/actuation inhaler Inhale 2 Puffs as instructed every 4 hours as needed for wheezing/shortness of breath. Taking Yes albuterol (PROVENTIL) 2.5 mg /3 mL (0.083 %) nebulizer solution Use 3 mL via nebulizer every 4 hours as needed for wheezing/shortness of breath. Inhale over 5-15 minutes Taking Yes atorvastatin (LIPITOR) 80 mg tablet Take 80 mg by mouth once daily. Taking Yes montelukast (SINGULAIR) 10 mg tablet Take 1 tablet by mouth daily at bedtime. Taking Yes budesonide (PULMICORT) 0.5 mg/2 mL nebulizer solution Use 2 mL via nebulizer two times a day. Taking Yes lisinopril 2.5 mg tablet Take 2.5 mg by mouth once daily. Taking Yes clopidogrel (PLAVIX) 75 mg tablet Take 75 mg by mouth once daily. Taking Yes No medication comments found. ALLERGIES Allergen Reactions Penicillins Other: See Comments Respiratory distress as a baby Daliresp [Roflumila* Rash Objective PHYSICAL EXAM: General: alert and oriented, healthy appearance and morbidly obese. Pertinent negatives noted - not distressed. Skin: normal color, no rash or lesions. HEENT: No additional findings for patient's neck. Cardiovascular: regular rate and rhythm, normal S1 and S2, no rub, murmurs, or gallop. Respiratory: No chest wall deformity or tenderness. Positive for wheezing. Abdomen: bowel sounds present and soft. Pertinent negatives noted - not tender. Extremities: no deformity, no edema or tenderness, no joint swelling or clubbing. Positive for edema. Neurological: normal cognition and motor skills. Gait normal. No weakness or sensory deficit. PAIN ASSESSMENT: Pain Pain Level: 4 VITALS: BP 150/80[manual[ Pulse 68 Temp 97.5 Resp 18 Ht 5' 9 (1.75m) Wt 278 lb (126.1kg) SpO2 97% BMI 41.03 kg/(m^2). Diagnostic tests reviewed for today's visit: Lab Value Units Date High Low HB No results within date range. HCT No results within date range. WBC No results within date range. PLT No results within date range. NA No results within date range. K No results within date range. GLUC No results within date range. BUN No results within date range. CREAT No results within date range. PTSEC No results within date range. INR No results within date range. APTT No results within date range. ALT No results within date range. AST No results within date range. TBILI No results within date range. TSH No results within date range. Lab Value Units Date High Low HCGQT No results within date range. UHCG No results within date range. HCG, BODY* No results within date range. Lab Value Units Date High Low ABORHD No results within date range. ABSCREEN No results within date range. No results found for: HBA1C Recent Results (from the past 8760 hour(s)) ECG COMPLETE Collection Time: 12/01/23 9:50 AM Result Value Ventricular Rate 69 Atrial Rate 69 P-R Interval 138 QRS Duration 126 QT Interval 450 QTC Calculation (Bazett) 482 Calculated P [place] -13 Calculated R [place] 78 Calculated T [place] 24 Impression SINUS RHYTHM WITH PREMATURE SUPRAVENTRICULAR COMPLEXES RIGHT BUNDLE BRANCH BLOCK ABNORMAL ECG NO PREVIOUS ECGS AVAILABLE Confirmed by MD EIRCK, DEANN ([id number]) on 12/03/2023 4:27:07 PM Recent Results (from the past 37909 hour(s)) ECHO Collection Time: 12/29/23 10:25 AM Impression CONCLUSIONS: - Technically difficult exam due to body habitus. - Exam indication: Shortness of Breath - The left ventricle is normal in size. There is moderate left ventricular hypertrophy. Left ventricular systolic function is normal. EF = 60 5% (2D 4-ch.) Indeterminate left ventricular diastolic dysfunction. - The right ventricle is normal in size. Right ventricular systolic function is normal. - The left atrial cavity is mildly dilated. - The right atrial cavity is dilated. - There are no significant valvular abnormalities. - The visualized aorta is borderline dilated with a maximal dimension of 4.0 cm. - The patient has not had a prior CC echocardiographic exam for comparison. * * * Final * * * Implantable Devices: bilateral total hips On Plavix - instructed to follow surgeon instructions on blood thinners pre op The Following Tests/Procedures Have Been Initiated: ECG, CXR, MRSA, PT/PTT, UC,UA, CMP, T&S, CBC - ordered per surgeon in epic ABO confirm ordered per ROMÁN Assessment/Plan Diagnosis: Spinal stenosis of lumbar region with neurogenic claudication [M48.062] PLAN Planned Procedure: Procedure(s): DECOMPRESSION LAMINECTOMY LUMBAR POSTERIOR LEVEL 1 (N/A) DECOMPRESSION LAMINECTOMY 1ST ADD'L LUMBAR SEGMENT (N/A) Instructions Given to Patient: Instructions located in the after visit summary. Patient given verbal and written preop instructions and voices comprehension and compliance. I spent a total of 45 minutes on the date of the service which included preparing to see the patient, [id number] patient care, completing clinical documentation, obtaining and/or reviewing separately obtained history, performing a medically appropriate examination, counseling and educating the patient/family/caregiver, and ordering medications, tests, or procedures. SIGNATURE: Harvey Purvis APRN.CNP PATIENT NAME: Elis Bills DATE: July 14, 2024 TIME: 12:50 PM PAGER/CONTACT #: [facility] 07-14-2024 History and physical note Images from the original note were not included. [facility] HISTORY AND PHYSICAL EXAMINATION SERVICE DATE: 07/14/2024 SERVICE TIME: 2:48 PM PRIMARY CARE PHYSICIAN: Pilar Steele, Assessment Patient has the following medical conditions which may affect stefan-operative course: Pre-op examination Medical conditions which may affect the perioperative course were address in today's visit. Spinal stenosis of lumbar region with neurogenic claudication Surgery scheduled 07/28/23 Obesity, Class III, BMI >= 40 BMI 41 COPD with acute exacerbation (HCC) Pt uses rescue inhaler as needed reports may 3 times per week. Uses nebulizer twice a day. Denies pneumonia in the last 6 months. Reports last hospitalization due to COPD exacerbation was 11/2023. Instructed to use inhaler as prescribed and bring DOS. Follows by Pulmonology - last OV 11/11/23 Hyperlipidemia Stable on Statin - instructed to take as prescribed Gastroesophageal reflux disease Stable on Omeprazole - instructed to take DOS 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 artery (HCC) On Plavix, statin denies residual Nicotine use disorder Quit smoking a week or so ago (04/06/24) Smoked for about 35 years 1- 2 ppd HTN (hypertension) Stable on lisinopril - instructed to hold DOS RBBB (right bundle branch block) Patient denies any symptoms. ECG today ECG 11/2023 SINUS RHYTHM WITH PREMATURE SUPRAVENTRICULAR COMPLEXES RIGHT BUNDLE BRANCH BLOCK ABNORMAL ECG Quinn Activity Status Index: METS: Climb a flight of stairs or walk up a hill (5.50 METs) DASI Score: 5.5 Patient denies any chest pain or undue shortness of breath with the above physical activity. Clinical Frailty Scale: 4. Apparently vulnerable ARISCAT Score: Age: 51-80 Preoperative SpO2: >=96% Respiratory infection in the last month: No Preoperative anemia: No Surgical incision: peripheral Duration of surgery: 2-3 hrs Emergency procedure: No ARISCAT Score: 19 ANESTHESIA FINDINGS: Intubation History: No history of difficult intubation. No abnormal airway history Significant Anesthesia Considerations: none Airway History: No history of difficult airway No abnormal airway history I - PHYSICAL EVALUATION AIRWAY Patient intubated: No. DENTAL Dental findings: missing tooth/teeth and teeth intact. II - ANESTHESIA PLAN Anesthetic Plan: general Beta Kumar Monitoring Plan Post Procedure Analgesic Plan Prepared for Surgery: CONSULTS: The following consults have been initiated at this time: primary care/internal medicine (in [facility]). Planned Anesthetic: general The Following Tests/Procedures Have Been Initiated: Orders Placed This Encounter Confirm Blood Type Standing Status: Future Number of Occurrences: 1 Standing Expiration Date: 10/13/2024 Order Specific Question: Did Blood Bank direct you to place this order: Answer: No - Presurgical Workflow [facility]NER ApoVax 160-9-4.8 mcg/actuation HFA aerosol inhaler Sig: INHALE 2 PUFFS TWICE DAILY, RINSE MOUTH AND THROAT AFTER USE. REASON FOR VISIT: Elis Bills is a 64 year old male who is scheduled for Procedure(s): DECOMPRESSION LAMINECTOMY LUMBAR POSTERIOR LEVEL 1 (N/A) DECOMPRESSION LAMINECTOMY 1ST ADD'L LUMBAR SEGMENT (N/A) at the request of @REFPROV2@ for routine H&P. My final recommendation will be communicated back to the requesting physician by way of shared medical record or letter. Subjective The patient has the following: COVID-19 Immunization Status Overdue - Covid-19 Vaccine () Never done No completion, postpone, frequency change, or communication history exists for this topic. CHIEF COMPLAINT: The reason for this visit is to perform a comprehensive review of the patient's past medical history, assess their current health status and obtain any additional testing required based on anesthesia guidelines. We will also identify any potential anesthesia problems or contraindications to the planned procedure. HPI: Patient is a 64 year old male who presents for pre surgical testing. Patient reports back pain for the last year. Reports he is working with pain management and had received multiple injections in the past, getting 5 days of relief from his most recent injection. Reports continued right low back pain following the ablation. Reports pain really bad when I walk. After discussing with surgeon, patient agrees to surgical intervention. Risk and benefits discussed by surgeon. Patient denies any other problems or concerns at this time. REVIEW OF SYSTEMS: General: Negative for: fever. Neurological: Positive for: strokes. Negative for: delirium, dementia, seizures and TIA. Respiratory: Positive for: asthma, COPD and tobacco use (former). Negative for: URI < 2 weeks and obstructive sleep apnea. Cardiovascular: Positive for: hyperlipidemia and hypertension Negative for: atrial fibrillation, CAD, chest pain, DVT/PE and recent SD. GI: Positive for: GERD Negative for: abdominal pain, dysphagia, hepatitis, nausea, vomiting and ETOH >2 drinks/day. : Negative for: dysuria, hematuria, urinary incontinence and renal failure. Endocrine: No history of diabetes. Has not taken steroids within the past 30 days. No history of endocrinological symptoms or problems. Negative for: diabetes mellitus and hypothyroidism. Hematology: Negative for: anemia, factor V Leiden, hemophilia and von Willebrand disease. Oncology: No history of CA metastasis, chemo within 30 days, or radiotherapy within 90 days. No history of oncological symptoms or problems. Psych: No history of psychiatric symptoms or problems. Negative for: anxiety. Musculoskeletal: See HPI. Skin: Negative for lesions, rash and itching. Implanted Devices: Has implanted device Implants: bilater total hips. PAST MEDICAL HISTORY Diagnosis Date COPD (chronic obstructive pulmonary disease) (HCC) Hypercholesteremia Lung nodules Spinal stenosis of lumbar region with neurogenic claudication Stroke (HCC) Unspecified right bundle-branch block PAST SURGICAL HISTORY Procedure Laterality Date PILONIDAL CYST/SINUS EXCISION TOTAL HIP REPLACEMENT Bilateral FAMILY HISTORY Problem Relation Age of Onset No Known Problems Mother Leukemia Father Social History Tobacco Use Smoking status: Former Current packs/day: 0.50 Types: Cigarettes Smokeless tobacco: Never Tobacco comments: Quit smoking a week or so ago (04/06/24) Smoked for about 35 years 1- 2 ppd Vaping Use Vaping status: Never Used Substance Use Topics Alcohol use: Yes Comment: 30 cans beer per week Drug use: Never Prior to Admission medications as of 07/14/24 1252 Medication Sig Last Dose Taking BREZTRI AEROSPHERE 160-9-4.8 mcg/actuation HFA aerosol inhaler INHALE 2 PUFFS TWICE DAILY, RINSE MOUTH AND THROAT AFTER USE. Yes omeprazole (PRILOSEC) 10 mg capsule Take 10 mg by mouth once daily. Taking Yes nicotine polacrilex (NICORETTE) 4 mg gum Take 1 Each by mouth as needed. Taking Yes albuterol HFA (PROVENTIL HFA, VENTOLIN HFA) 90 mcg/actuation inhaler Inhale 2 Puffs as instructed every 4 hours as needed for wheezing/shortness of breath. Taking Yes albuterol (PROVENTIL) 2.5 mg /3 mL (0.083 %) nebulizer solution Use 3 mL via nebulizer every 4 hours as needed for wheezing/shortness of breath. Inhale over 5-15 minutes Taking Yes atorvastatin (LIPITOR) 80 mg tablet Take 80 mg by mouth once daily. Taking Yes montelukast (SINGULAIR) 10 mg tablet Take 1 tablet by mouth daily at bedtime. Taking Yes budesonide (PULMICORT) 0.5 mg/2 mL nebulizer solution Use 2 mL via nebulizer two times a day. Taking Yes lisinopril 2.5 mg tablet Take 2.5 mg by mouth once daily. Taking Yes clopidogrel (PLAVIX) 75 mg tablet Take 75 mg by mouth once daily. Taking Yes No medication comments found. ALLERGIES Allergen Reactions Penicillins Other: See Comments Respiratory distress as a baby Daliresp [Roflumila* Rash Objective PHYSICAL EXAM: General: alert and oriented, healthy appearance and morbidly obese. Pertinent negatives noted - not distressed. Skin: normal color, no rash or lesions. HEENT: No additional findings for patient's neck. Cardiovascular: regular rate and rhythm, normal S1 and S2, no rub, murmurs, or gallop. Respiratory: No chest wall deformity or tenderness. Positive for wheezing. Abdomen: bowel sounds present and soft. Pertinent negatives noted - not tender. Extremities: no deformity, no edema or tenderness, no joint swelling or clubbing. Positive for edema. Neurological: normal cognition and motor skills. Gait normal. No weakness or sensory deficit. PAIN ASSESSMENT: Pain Pain Level: 4 VITALS: BP 150/80[manual[ Pulse 68 Temp 97.5 Resp 18 Ht 5' 9 (1.75m) Wt 278 lb (126.1kg) SpO2 97% BMI 41.03 kg/(m^2). Diagnostic tests reviewed for today's visit: Lab Value Units Date High Low HB No results within date range. HCT No results within date range. WBC No results within date range. PLT No results within date range. NA No results within date range. K No results within date range. GLUC No results within date range. BUN No results within date range. CREAT No results within date range. PTSEC No results within date range. INR No results within date range. APTT No results within date range. ALT No results within date range. AST No results within date range. TBILI No results within date range. TSH No results within date range. Lab Value Units Date High Low HCGQT No results within date range. UHCG No results within date range. HCG, BODY* No results within date range. Lab Value Units Date High Low ABORHD No results within date range. ABSCREEN No results within date range. No results found for: HBA1C Recent Results (from the past 8760 hour(s)) ECG COMPLETE Collection Time: 12/01/23 9:50 AM Result Value Ventricular Rate 69 Atrial Rate 69 P-R Interval 138 QRS Duration 126 QT Interval 450 QTC Calculation (Bazett) 482 Calculated P [place] -13 Calculated R [place] 78 Calculated T [place] 24 Impression SINUS RHYTHM WITH PREMATURE SUPRAVENTRICULAR COMPLEXES RIGHT BUNDLE BRANCH BLOCK ABNORMAL ECG NO PREVIOUS ECGS AVAILABLE Confirmed by MD SUAREZ VINAYAK ([id number]) on 12/03/2023 4:27:07 PM Recent Results (from the past 41865 hour(s)) ECHO Collection Time: 12/29/23 10:25 AM Impression CONCLUSIONS: - Technically difficult exam due to body habitus. - Exam indication: Shortness of Breath - The left ventricle is normal in size. There is moderate left ventricular hypertrophy. Left ventricular systolic function is normal. EF = 60 5% (2D 4-ch.) Indeterminate left ventricular diastolic dysfunction. - The right ventricle is normal in size. Right ventricular systolic function is normal. - The left atrial cavity is mildly dilated. - The right atrial cavity is dilated. - There are no significant valvular abnormalities. - The visualized aorta is borderline dilated with a maximal dimension of 4.0 cm. - The patient has not had a prior [facility] echocardiographic exam for comparison. * * * Final * * * Implantable Devices: bilateral total hips On Plavix - instructed to follow surgeon instructions on blood thinners pre op The Following Tests/Procedures Have Been Initiated: ECG, CXR, MRSA, PT/PTT, UC,UA, CMP, T&S, CBC - ordered per surgeon in epic ABO confirm ordered per ROMÁN Assessment/Plan Diagnosis: Spinal stenosis of lumbar region with neurogenic claudication [M48.062] PLAN Planned Procedure: Procedure(s): DECOMPRESSION LAMINECTOMY LUMBAR POSTERIOR LEVEL 1 (N/A) DECOMPRESSION LAMINECTOMY 1ST ADD'L LUMBAR SEGMENT (N/A) Instructions Given to Patient: Instructions located in the after visit summary. Patient given verbal and written preop instructions and voices comprehension and compliance. I spent a total of 45 minutes on the date of the service which included preparing to see the patient, [id number] patient care, completing clinical documentation, obtaining and/or reviewing separately obtained history, performing a medically appropriate examination, counseling and educating the patient/family/caregiver, and ordering medications, tests, or procedures. SIGNATURE: Harvey Purvis APRN.CNP PATIENT NAME: Elis Bills DATE: July 14, 2024 TIME: 12:50 PM PAGER/CONTACT #: documented in this encounter [facility] 07-10-2024 Instructions Harvey Purvis APRN.CNP - 07/10/2024 12:50 PM EST PATIENT PREOPERATIVE INSTRUCTIONS Your surgeon has scheduled for your procedure at this surgery center: [facility]: [phone], [address] [id number] Please read below carefully for your personalized instructions. Surgery Date:07/28/2024 Your surgeon's office will provide you with your ARRIVAL TIME for surgery. - If you have not received an arrival time by the afternoon before your surgery date, please follow up with your surgeon's office. - If you are scheduled for Wednesday surgery, please make sure you have your arrival time by Wednesday afternoon. - Please be aware that emergency situations arise, which may delay or change your surgical time. If this happens, your surgeon's office will notify you as soon as possible and regret any inconvenience. Dietary Restrictions: - No solid food after midnight. - You may have 12 ounces of clear liquids (water, clear juices such as apple juice or gatorade, carbonated beverages, clear tea, black coffee, jello) until 2 hours before scheduled arrival at facility. This is important because otherwise your surgery may have to be cancelled. Blood Thinning Medications: - Stop NSAIDS (Ibuprofen, Advil, Aleve, Motrin, Celebrex, Mobic, etc.) 7 days before surgery, or as directed by your surgeon. You may take Tylenol (Acetaminophen) or any of your pain medications that do not contain aspirin or NSAIDS as needed. IF YOU TAKE ANY OF THE FOLLOWING BLOOD THINNERS, PLEASE CONTACT YOUR SURGEON AND THE PHYSICIAN WHO PRESCRIBES IT FOR YOU IN ORDER TO GET PERIOPERATIVE INSTRUCTIONS SOON POSSIBLE. BLOOD THINNERS: Aspirin , Coumadin, Plavix, Eliquis, Pradaxa, Xarelto, Lovenox, Brilinta, Effient, Savaysa, Arixtra, etc - Stop Vitamin E, fish oil, multivitamins, Marijuana, CBD oil and other over the counter herbals and dietary supplements 7 days before surgery. - This would not apply to cancer patients who are prescribed Marinol or any other prescription form on marijuana or CBD. Medications: Pre Surgery Med Instructions Medication instructions albuterol (PROVENTIL) 2.5 mg /3 mL (0.083 %) nebulizer solution As needed albuterol HFA (PROVENTIL HFA, VENTOLIN HFA) 90 mcg/actuation inhaler As needed and bring to the hospital atorvastatin (LIPITOR) 80 mg tablet Continue until night before surgery BREZTRI AEROSPHERE 160-9-4.8 mcg/actuation HFA aerosol inhaler Use the morning of surgery budesonide (PULMICORT) 0.5 mg/2 mL nebulizer solution As needed clopidogrel (PLAVIX) 75 mg tablet As per surgeon's recommendation lisinopril 2.5 mg tablet HOLD the morning of surgery montelukast (SINGULAIR) 10 mg tablet Take morning of surgery with sip of water, no other fluids nicotine polacrilex (NICORETTE) 4 mg gum As needed omeprazole (PRILOSEC) 10 mg capsule Take morning of surgery with sip of water, no other fluids Approved medications to take the morning of surgery with a sip of water: BP, Heart, seizure, thyroid, psych and pain medications. Use inhalers as prescribed. Please bring inhalers. HOLD - AMY inhibitors (Angiotensin-converting enzyme inhibitors) and ARBs (Angiotensin II receptor blockers) Day of surgery. Use inhalers as prescribed. Please bring inhalers. Weight loss medications: - Sympathomimetics such as Adipex-P (Phentermine): Stop 4 days before surgery. - Contrave (Naltrexone/Bupropion) Hold 2-3 days. - Qsymia (Phentermine/Topiramate - Please contact your prescribing provider for Pre op directions. (Depending on the patients dose this medication may need tapered off. They should get pre-op directions from their prescribing provider.) - GLP-1 Agonists (oral and injectables) Hold 7 days. Patients with Diabetes Mellitus: Please follow up with the provider that manages your diabetes and how to prepare you for surgery. Do not take the following medications Morning of surgery: Trajenta/Linagliptin, Metformin, Actos/Pioglitazone, Amaryl/Glimepiride. For the following Medications, please HOLD 2 DAYS PRIOR TO SURGERY: Glucotrol/Glipizide, Januvia/Sitagliptin, Glyburide, Prandin/Repaglinide, Starlix/Nateglinide, Symlin/Pramlintide, Kazano ( Alogliptin/Metformin) For the following Medications, please HOLD 3 DAYS PRIOR TO SURGERY: Canagliflozin/Invokana, Dapagliflozin/Farxiga, Empagliflozin/Jardiance, Invokamet/ canagliflozin and metformin, Xigduo XR/ dapagliglozin and metformin, Glyxambi/ empagliflozin and metformin, Syndardy/ empagliflozin and metformin For the following Medications, please HOLD 4 DAYS PRIOR TO SURGERY: Ertugliflozin/Steglatro For the following Medications, please HOLD 7 DAYS PRIOR TO SURGERY: GLP-1 AGONIST: Adlyxin (lixisenatide), Bydureon BCise (exenatide suspension), Byetta (exenatide), Mounjaro (tirzepatide), Ozempic (semaglutide injection), Rybelsus (semaglutide tablets), Tanzeum (albiglutide), Trulicity (dulaglutide), Victoza (liraglutide), Wegovy (semaglutide), Saxenda (liraglutide), Xultophy (degludec/liraglutide) Insulin Medication Instructions: Please follow up with the provider that manages your Insulin and how to prepare you for surgery. It is recommended ALL Pre-Op patients and Endoscopy patients hold all GLP-1 agonists for 7 days prior to surgery. If you start any new medications after today's visit, please contact the surgeon's office. Important Reminders: - If you have a stimulator, implant or pump that requires a remote, please bring the remote with you day of surgery. - If you use CPAP/BIPAP, bring the machine with you to the surgery center. - If you are prescribed inhalers for breathing, continue using them AND bring them to the surgery center. - Candy, mints, gum and tobacco products are NOT permitted the morning of surgery. - Hearing aids, dentures and glasses may be worn the morning of surgery. - NO jewelry, body piercings, makeup, hairpins or contacts are to be worn the day of surgery. - Oral hygiene and a shower or bath is required the evening before or the morning of surgery. - NO lotion, creams, powders or deodorants on the skin the day of surgery. - Wear loose, comfortable clothing that will accommodate bandages. - Your length of stay will be determined by your surgeon. - You will need to have someone else (Family or friend) to drive you home once discharged from the hospital. You cannot drive yourself home after surgery. - YOU MUST HAVE A RESPONSIBLE SIMULATION SOFTWARE ENGINEER TAKE YOU HOME. A PRIMER CHARGER, CAB OR UBER SIMULATION SOFTWARE ENGINEER CANNOT BE MADE A RESPONSIBLE SIMULATION SOFTWARE ENGINEER. - If you are undergoing an outpatient procedure you must have someone drive you home and stay with you for the first 24 hours. Your ride home must be at least 18 years old or older. Your surgery may be cancelled if you do not have someone to drive you home or take care of you. - You cannot stay in a hotel alone after an outpatient surgery. - It is recommended patients have a 72-hour period between getting their vaccine and the date of surgery. Visitation: Visitors to any [facility] facility: Any individual who is sick should not visit. Visitors to patients with COVID-19 must follow these guidelines, which include wearing a mask, eye protection, gown and gloves. [facility] in [place] Visitation hours: 7 AM to 9 PM. Pre-Surgery Unit - Patients may have up to 2 visitors at a time. PACU recovery Unit - Patients may have up to 1-2 visitors at a time. [facility] [place] Pre-Surgery area - 1 visitor at a time due to limited space. PACU recovery area - No visitors due to limited space unless patient is a minor due to limited space. If you develop symptoms such as a fever, cold, or flu, or have other changes to your health within TWO DAYS of scheduled surgery or the morning of surgery, please contact the surgeon's office. Personal Belongings: - Leave ALL valuables and money at home or with family members. - You will need a form of ID and insurance card to check in the morning of surgery. - If you do not have a copy of Advance Directives on file with us, please bring a copy with you on the day of surgery. If you already have an Advance Directive, please fax a copy to [phone] or email to for it to be added to your chart. If you do not have an Advance Directive, you can find the appropriate form and more information at [email or web address]. We recommend that you complete the Advance Directive form found on the website and bring it with you the day of your surgery. It can be witnessed and scanned into your chart that day. IF you are having a TOTAL KNEE, HIP REPLACEMENT OR ORTHOPEDIC SURGERY: - Orthopedic patients at [facility] listed as outpatient, please bring walker into the building. - Orthopedic patients at [facility] listed as to be admitted, please leave walkers in the car or with a family member. - Orthopedic patients at [facility] [place], please bring the walker into the building day of surgery. Hibiclens provided. The anti-bacterial soap (Hibiclens) should be used TWICE prior to surgery: The night before surgery and the morning of surgery: - If you plan to wash your hair, do so with your regular shampoo. Then rinse hair and body thoroughly to remove any shampoo residue - Wash your face with water or your regular soap - Thoroughly rinse your body with water from the neck down - Apply Hibiclens directly on your skin or on a wet washcloth and wash gently. Move away from the shower stream when applying Hibiclens to ensure the CHG binds to the skin. - Pay special attention to the area where your surgery will be performed - Rinse thoroughly - Apply clean bedding and clean clothing after shower Do not use your regular soap after applying and rinsing Hibiclens. Do not apply any lotions, deodorants, powders, or perfumes to the body areas that have been cleaned with Hibiclens. Do not use Hibiclens: - If you are allergic to Chlorhexidine gluconate or any other ingredient in this preparation - In contact with the meninges - In the genital area - On wounds that involve more than the superficial layers of the skin Please review Hibiclens pamphlet prior to use. Harvey Purvis APRN.CNP 07/14/24 documented in this encounter [facility] 06-21-2024 Telephone encounter Note Patient returned my call. Discussed all surgery details. Answered all questions. [facility] 06-21-2024 Miscellaneous Notes Patient returned my call. Discussed all surgery details. Answered all questions. Attempted to contact patient to discuss surgery details. No answer and VM box full. Unable to leave a voice message documented in this encounter [facility] 06-21-2024 Telephone encounter Note Attempted to contact patient to discuss surgery details. No answer and VM box full. Unable to leave a voice message [facility] 06-08-2024 Telephone encounter Note Nebulizer orders signed & faxed back to [facility]. Dalia Segura [facility] 06-08-2024 Miscellaneous Notes Nebulizer orders signed & faxed back to [facility]. Dalia Segura documented in this encounter [facility] 06-08-2024 History of Present illness Narrative Radiology Service Progress Note PATIENT NAME: Elis Bills DATE OF SERVICE: June 08, 2024 TIME: 11:03 AM PATIENT IDENTITY VERIFICATION COMPLETED USING TWO (2) IDENTIFIERS: Name and Date of confirmed by patient verbally. FALL SCREENING: Has the patient had 2 falls in the last year or 1 fall with injury or currently using an Ambulatory Assistive Device (Walker, Cane, Wheelchair, Crutches, etc.)? No PATIENT GENDER DATA: Male PATIENT RELEVANT IMPLANT DATA REVIEWED: Yes PATIENT PRESENTS WITH AN IMPLANTABLE OR ATTACHED PROFILE TRIMMER: No RADIOLOGY DEPARTMENT: CT; Exam(s) Completed: Chest PERIPHERAL IV DATA: Not applicable SIGNED BY: RT Fernando(Yareli) June 08, 2024 11:03 AM documented in this encounter [facility] 06-08-2024 Note HNO ID: [id number] Author: ERMIAS JANE RT(Yareli) Service: ? Author Type: Co Op Type: Progress Notes Filed: 06/08/2024 11:03 Note Text: Radiology Service Progress Note PATIENT NAME: Elis Bills DATE OF SERVICE: June 08, 2024 TIME: 11:03 AM PATIENT IDENTITY VERIFICATION COMPLETED USING TWO (2) IDENTIFIERS: Name and Date of confirmed by patient verbally. FALL SCREENING: Has the patient had 2 falls in the last year or 1 fall with injury or currently using an Ambulatory Assistive Device (Walker, Cane, Wheelchair, Crutches, etc.)? No PATIENT GENDER DATA: Male PATIENT RELEVANT IMPLANT DATA REVIEWED: Yes PATIENT PRESENTS WITH AN IMPLANTABLE OR ATTACHED PROFILE TRIMMER: No RADIOLOGY DEPARTMENT: CT; Exam(s) Completed: Chest PERIPHERAL IV DATA: Not applicable SIGNED BY: RT Fernando(R) June 08, 2024 11:03 AM [facility] 06-05-2024 History of Present illness Narrative Images from the original note were not included. NEUROSURGERY FOLLOW UP OFFICE NOTE Lois Kee MD [facility] General Date of visit: June 05, 2024 Patient Name: Mr.Donald Tim Bills Date of : 1960 Current Age: [age] year old Sex: male MRN/E# [id number] Last Office Visit: 04/06/2024 Chief Complaint: Patient presents with: Established Patient Past Medical/Surgical History: Elis Bills is a 63 year old male who is referred by Bertha Schumacher APRN, CNP with pain management for neurosurgical evaluation. The patient has a history of COPD, hypercholesterolemia, stroke. Smoking: quit about a month ago Alcohol Use: + 6 pack a day HPI: Mr. Bills was seen in the office as a new patient on 04/06/2024 with reports of a year history of right sided low back pain that did not radiate into the lower extremities. He was established with pain management and had received multiple injections in the past, getting 5 days of relief from his most recent injection. Sitting and leaning forward at the waist helped relieve some of the pain. His MRI was reviewed with him which showed some STIR signal within the L1 vertebral body which was likely representing a compression fracture though the MRI was from 4 to 5 months ago so the fracture was likely healed. His MRI also showed significant amount of epidural lipomatosis causing severe stenosis at L2-3 and L3-4. He also had retrolisthesis at L4 over L5 and likely pars defect at that level. Given that his symptoms were localized to focal back pain it was explained that surgery may not be recommended at that time. He was also very high risk for surgery given his body habitus Plavix use smoking history alcohol use and COPD. He was advised to attempt an ablation first to see if he would get meaningful relief as that would provide some guidance to whether or not surgery would benefit him. He was to follow-up in a couple of months with flexion-extension x-rays for reevaluation prompting his visit today. The patient presents to the office today with continued right low back pain following the ablation. He got about a week of some relief following the ablation but the pain has returned and is the same intensity as before. He denies leg pain, paresthesia, weakness. He is here for evaluation and plan of care. Symptoms: right low back pain PREVIOUS CONSERVATIVE TREATMENTS: Pain management - Spine and Pain Injection - 10/28/2023 - bilateral L4-5 and L5-S1 MBB - no relief - 12/16/2023 - bilateral L3-4 and L4-5 MBB - unsure - 03/16/2024 - midline L4-5 ILESI - 5 days Flexeril PREVIOUS SURGERY: None Surgical Risk Factors: Smoking status: + 0.5 PPD - quitting - +nicotine gum and candy Anticoagulants/antiplatelets: +PLAVIX 75mg daily Diabetic: denies BMI: 44.37 PAIN EVALUATION 06/05/2024 0904 Pain Level: 8 Pain Location: Back-Lower right side of back Description: -- unknown Duration Amount of Time: 3 Duration Units: Days Frequency: Continuous Comments: Got worse since Wednesday PAST MEDICAL HISTORY Diagnosis Date COPD (chronic obstructive pulmonary disease) (HCC) Hypercholesteremia Stroke (HCC) History reviewed. No pertinent surgical history. FAMILY HISTORY Problem Relation Age of Onset No Known Problems Mother Leukemia Father ALLERGIES Allergen Reactions Penicillins Unknown Current Outpatient Medications Medication Sig Dispense Refill nicotine polacrilex (NICORETTE) 4 mg gum Take 1 Each by mouth as needed. 300 Each 3 albuterol HFA (PROVENTIL HFA, VENTOLIN HFA) 90 mcg/actuation inhaler Inhale 2 Puffs as instructed every 4 hours as needed for wheezing/shortness of breath. 3 Each 3 albuterol (PROVENTIL) 2.5 mg /3 mL (0.083 %) nebulizer solution Use 3 mL via nebulizer every 4 hours as needed for wheezing/shortness of breath. Inhale over 5-15 minutes atorvastatin (LIPITOR) 80 mg tablet Take 80 mg by mouth once daily. montelukast (SINGULAIR) 10 mg tablet Take 1 tablet by mouth daily at bedtime. 90 tablet 3 budesonide (PULMICORT) 0.5 mg/2 mL nebulizer solution Use 2 mL via nebulizer two times a day. 360 mL 3 lisinopril 2.5 mg tablet Take 2.5 mg by mouth once daily. clopidogrel (PLAVIX) 75 mg tablet Take 75 mg by mouth once daily. OMEPRAZOLE (PRILOSEC ORAL) Take 10 mg by mouth as needed. Unsure of dose No current facility-administered medications for this visit. REVIEW OF SYSTEMS Review of Systems Constitutional: Negative for chills, fatigue and fever. HENT: Negative for ear pain, hearing loss and tinnitus. Eyes: Negative for photophobia, pain and visual disturbance. Respiratory: Negative for shortness of breath. Cardiovascular: Negative for chest pain. Gastrointestinal: Negative for constipation, diarrhea, nausea and vomiting. Endocrine: Negative for polydipsia, polyphagia and polyuria. Genitourinary: Negative for difficulty urinating, frequency and urgency. Musculoskeletal: Positive for back pain. Negative for gait problem, neck pain and neck stiffness. Skin: Negative for color change. Neurological: Negative for dizziness, weakness, light-headedness and numbness. Psychiatric/Behavioral: Negative for agitation and confusion. The patient is not nervous/anxious. OBJECTIVE: BP 161/84 Pulse 72 Resp 20 Wt 285 lb 7.9 oz (129.5kg) SpO2 96% PHYSICAL EXAM: Mental State : Alert, memory function unremarkable. Attention span and concentration normal for patient's age. Speech normal, no receptive or expressive speech deficit. Recent and remote memory normal. Orientation : Oriented to person, place and time. Cranial Nerves : Grossly intact. Sensory: Normal Sensation in upper and lower extremities and trunk to touch and noxious stimuli. Motor: Normal muscle tone and bulk. No tremor or uncontrollable movements. No spasticity or tremor. Gait and Station: Casual gait is normal including stance, stride, and arm swing. STRENGTH: Upper Extremity Strength Exam Right Left Elbow Flexion 5/5 5/5 Elbow Extension 5/5 5/5 Finger Flexion 5/5 5/5 Finger Extension 5/5 5/5 Finger Abduction 5/5 5/5 Lower Extremity Strength Exam Right Left Hip Flexion 5/5 5/5 Knee Flexion 5/5 5/5 Knee Extension 5/5 5/5 Dorsiflexion 5/5 5/5 Plantarflexion 5/5 5/5 Reflexes Right Left Biceps C5-C6 +1 +1 Triceps C7-C8 +1 +1 Wrist C5-6 +1 +1 Patellar L3-4 +0 +0 Achilles L5-S1 +0 +0 Pathologic Reflexes Right Left Serra's Negative Negative Clonus Negative Negative Data Review IMAGING STUDIES: XR lumbar flex/ex 06/05/2024: degenerative changes, no translational instability Assessment & Plan: Mr. Bills presents for follow-up. He has been having right sided low back pain with extension into his right buttock for over a year now. He has tried injections and ablations without relief. He feels better when he bends forward at the waist. The pain is worse when walking. His MRI shows significant epidural lipomatosis, with moderate to severe stenosis at L2-3 and L3-4. I offered L2-L4 laminectomy to decompress the nerves at the levels that are compressed by the significant epidural lipomatosis. Given that he is having a lot of back pain from this, I explained that there is a chance that he might not improve after surgery. Given that he gets relief when he bends forward at the waist, I believe that some of his pain is radicular in nature. Given his extensive comorbidities as well as his body habitus, surgery is risky. I explained the risk of surgery, which included bleeding, infection, CSF leak, nerve injury, medical complications. I also explained that there is a chance that we perform the surgery and he gets minimal or no relief. He will think about things and let me know how he would like to move forward. All questions were answered. Attribution: The following portions of the patient's history were reviewed, confirmed, and updated as necessary: allergies, current medications, past family history, past medical history, past social history, past surgical history, problem list, HPI, and ROS obtained by others. Some elements may be copied from a previous office note and have been reviewed/updated where appropriate. All portions reflect current medical decision making from today. The clinical and radiographic findings as well as the risks, benefits and alternatives of treatment have been reviewed in detail with the patient. Advised to call the office if symptoms worsen or new symptoms develop. Patient expressed understanding and is in agreement with plan. Lois Kee MD [facility] Medical Decision Making: Problems: Moderate: 2+ stable chronic illnesses Data: Unique source(s) for external note(s) reviewed: 1 Unique test result(s) reviewed: 2 Risk: High: High risk from testing/treatment Medical Decision Making Level: 4 - Moderate This note was partially generated using [employer] voice recognition system, and there may be some incorrect words, spellings, and punctuation that were not noted in checking the note before saving. documented in this encounter [facility] 06-05-2024 Note HNO ID: [id number] Author: LOIS KEE MD Service: ? Author Type: Physician Type: Progress Notes Filed: 06/05/2024 10:19 Note Text: NEUROSURGERY FOLLOW UP OFFICE NOTE Lois Kee MD [facility] Date of visit: June 05, 2024 Patient Name: Mr.Donald Tim Bills Date of : 1960 Current Age: [age] year old Sex: male MRN/E# [id number] Last Office Visit: 04/06/2024 Chief Complaint: Patient presents with: Established Patient Past Medical/Surgical History: Elis Bills is a 63 year old male who is referred by Bertha Schumacher APRN, CNP with pain management for neurosurgical evaluation. The patient has a history of COPD, hypercholesterolemia, stroke. Smoking: quit about a month ago Alcohol Use: + 6 pack a day HPI: Mr. Bills was seen in the office as a new patient on 04/06/2024 with reports of a year history of right sided low back pain that did not radiate into the lower extremities. He was established with pain management and had received multiple injections in the past, getting 5 days of relief from his most recent injection. Sitting and leaning forward at the waist helped relieve some of the pain. His MRI was reviewed with him which showed some STIR signal within the L1 vertebral body which was likely representing a compression fracture though the MRI was from 4 to 5 months ago so the fracture was likely healed. His MRI also showed significant amount of epidural lipomatosis causing severe stenosis at L2-3 and L3-4. He also had retrolisthesis at L4 over L5 and likely pars defect at that level. Given that his symptoms were localized to focal back pain it was explained that surgery may not be recommended at that time. He was also very high risk for surgery given his body habitus Plavix use smoking history alcohol use and COPD. He was advised to attempt an ablation first to see if he would get meaningful relief as that would provide some guidance to whether or not surgery would benefit him. He was to follow-up in a couple of months with flexion-extension x-rays for reevaluation prompting his visit today. The patient presents to the office today with continued right low back pain following the ablation. He got about a week of some relief following the ablation but the pain has returned and is the same intensity as before. He denies leg pain, paresthesia, weakness. He is here for evaluation and plan of care. Symptoms: right low back pain PREVIOUS CONSERVATIVE TREATMENTS: Pain management - Spine and Pain Injection - 10/28/2023 - bilateral L4-5 and L5-S1 MBB - no relief - 12/16/2023 - bilateral L3-4 and L4-5 MBB - unsure - 03/16/2024 - midline L4-5 ILESI - 5 days Flexeril PREVIOUS SURGERY: None Surgical Risk Factors: Smoking status: + 0.5 PPD - quitting - +nicotine gum and candy Anticoagulants/antiplatelets: +PLAVIX 75mg daily Diabetic: denies BMI: 44.37 PAIN EVALUATION 06/05/2024 0904 Pain Level: 8 Pain Location: Back-Lower right side of back Description: -- unknown Duration Amount of Time: 3 Duration Units: Days Frequency: Continuous Comments: Got worse since Wednesday PAST MEDICAL HISTORY Diagnosis Date COPD (chronic obstructive pulmonary disease) (HCC) Hypercholesteremia Stroke (HCC) History reviewed. No pertinent surgical history. FAMILY HISTORY Problem Relation Age of Onset No Known Problems Mother Leukemia Father ALLERGIES Allergen Reactions Penicillins Unknown Current Outpatient Medications Medication Sig Dispense Refill nicotine polacrilex (NICORETTE) 4 mg gum Take 1 Each by mouth as needed. 300 Each 3 albuterol HFA (PROVENTIL HFA, VENTOLIN HFA) 90 mcg/actuation inhaler Inhale 2 Puffs as instructed every 4 hours as needed for wheezing/shortness of breath. 3 Each 3 albuterol (PROVENTIL) 2.5 mg /3 mL (0.083 %) nebulizer solution Use 3 mL via nebulizer every 4 hours as needed for wheezing/shortness of breath. Inhale over 5-15 minutes atorvastatin (LIPITOR) 80 mg tablet Take 80 mg by mouth once daily. montelukast (SINGULAIR) 10 mg tablet Take 1 tablet by mouth daily at bedtime. 90 tablet 3 budesonide (PULMICORT) 0.5 mg/2 mL nebulizer solution Use 2 mL via nebulizer two times a day. 360 mL 3 lisinopril 2.5 mg tablet Take 2.5 mg by mouth once daily. clopidogrel (PLAVIX) 75 mg tablet Take 75 mg by mouth once daily. OMEPRAZOLE (PRILOSEC ORAL) Take 10 mg by mouth as needed. Unsure of dose No current facility-administered medications for this visit. REVIEW OF SYSTEMS Review of Systems Constitutional: Negative for chills, fatigue and fever. HENT: Negative for ear pain, hearing loss and tinnitus. Eyes: Negative for photophobia, pain and visual disturbance. Respiratory: Negative for shortness of breath. Cardiovascular: Negative for chest pain. Gastrointestinal: Negative for constipation, diarrhea, nausea and vomiting. Endocrine: Negative for polydipsia, polyphagia and polyu (more content not included)... [facility] 05-31-2024 Telephone encounter Note Nebulizer order signed & faxed back to Ronal Zaragoza. Dalia Segura [facility] 05-31-2024 Miscellaneous Notes Nebulizer order signed & faxed back to Ronal Zaragoza. Dalia Segura documented in this encounter [facility] 05-11-2024 History of Present illness Narrative Images from the original note were not included. Called pt and Cancelled Appt VIRTUAL VISIT PROGRESS NOTE This is a virtual visit using [employer] Zoom Video Visit. It required patient-provider interaction for the medical decision making as documented below. I have communicated my name and active licensure. The patient's identity and physical location were verified at the time of this visit. Either the patient or their legal ict sales representative has been informed of the risks and benefits of -- and alternatives to -- treatment through a remote evaluation and consents to proceed with the evaluation remotely. [facility] Today's Date: 05/11/2024 Name: Elis Bills : 1960 Purpose: Follow-up Patient Evaluation - This is an established patient, returning today for continued evaluation and management of the chief complaint noted below (Telemedicine) Chief complaint: low back pain Referring Clinician: Pertinent Past Medical History: COPD, Obesity, HTN, HLD, CVA Pertinent Past Surgeries: B/L THR This is a virtual visit via Zoom, Phone and/or MyChart. It required patient-provider interaction for the medical decision making as documented below. Patient understands that privacy cannot be guaranteed. Note: Examination was limited today due to this being a virtual/telemedicine encounter Plan at last visit: (Seen on 04/27/2024 by Bertha Schumacher CNP) PLAN: Elis Bills would benefit from the following to reach personal goals for decreasing pain, improving function and work participation, and/or improving quality of life: Medications: Requested Prescriptions No prescriptions requested or ordered in this encounter Interventional Procedures: Radiofrequency Ablation (Thermal RFA) - Lumbar Medial Branches under fluoroscopic guidance BILATERAL SIDES at L3-4 and L4-5 Vascular Radiologist Needed: Radiofrequency Ablation - YES Anticoagulant - Hold Needed: NO HOLD REQUIRED FOR THIS PROCEDURE Anticoagulant - Currently Taking: None, Plavix (7 days when hold needed) Allergies (relevant): None Scheduling - Mobility (Can Patient independently transfer on/off an OR or Procedure table?): YES (May schedule at any location) Scheduling - Additional Info: None Studies: None Functional Christianity: NONE Referrals: No additional considerations at present Follow-up:3 weeks after RFA Depending on response to the above plan, consider: TBD Interval History: Overall pain and functional disability since last visit: unchanged New Complaints since last visit:no On 04/25/2024 patient had bilateral medial branch nerve blocks at L3-L4 L4-L5 with greater than 80% relief. Patient states that after he had the procedure done he had to visit his son who was in the hospital he walked all the way to the hospital room all the way back to the parking garage with no pain. That would have never happened currently or before the injection. This is the second in a series of 2 medial branch nerve blocks. Patient stating that both injections have worked well and would like to proceed with the RFA. Current Pain Medications: Neuropathics: NSAIDS: Muscle Relaxants: Topicals: Other Prescription or OTC Pain Medications: Opioids (when applicable): Greenlight Questionnaire GREENLIGHT Completed Date 09/23/2023 Opioid Risk Tool Opiod Risk Tool Date Completed 09/23/2023 Comments 0 MOHINDER-7 Anxiety Score 0 Completed Date 09/23/2023 PHQ9P Score 0 Completed Date 09/23/2023 Anti-depressants or Mood-Stabilizers: None Anti-Coagulants: Plavix Therapies Attended (Current or Most Recent): 12 sessions PT 09/23/2023 AG SPINE COMBINATION Questionnaire GREENLIGHT Completed Date 09/23/2023 Questionnaire Opiod Risk Tool Completed Date 09/23/2023 Comments 0 No question data found. (All drug screens are appropriate unless indicated otherwise) Notable Events During Course of Treatment: 09/22/2023 - Initial HPI (Obtained by Bertha Schumacher CNP). DURATION AND ONSET: The pain complaint has been present for approximately 9 months. The pain had a sudden onset. The mechanism of injury is unknown. RED FLAG SYMPTOMS: denies red flags. PAIN DESCRIPTION: Timing: Intermittent Character: Burning, Sharp, Stabbing Primary Location: low back Radiation: none Exacerbating factors: Walking, getting up from a seated position Relieving factors: Sitting Interferes with: physical activity and work Patient is here today complaining of low back pain without radicular symptoms. Patient stating that he has had an x-ray of his lumbar spine but no MRI. Patient stating that he has had an injection into his low back, with no relief. Patient states he did not care for the explanation of the next plan of care from this provider and so he is changing pain management. Patient has done recent physical therapy. 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 States he is fine until he starts walking or moving and then the pain increases. States he is fine at sitting. Patient states he was prescribed tramadol and it is not helping at all with his pain so he stopped use. Patient is also on Plavix and is aware that he cannot take NSAIDs. Patient is here to see what can be done for his back pain as it is interfering with his activities of daily living and his work. Treatment History: PAIN PROCEDURES: DATE PROCEDURE IMPROVEMENT 05/10/2024 B/L RFA L3-L5 04/25/2024 B/L MBNB L3-L5 >80% 03/16/2024 ILESI L4-L5 90% for 4 days 12/16/23 MBB BL L3-4 and L4-5. 80% 10/28/2023 MBB B/L L4-S1 No relief MEDICATIONS Taken TO DATE (for the chief complaint(s)): Neuropathics: None NSAIDS: unable to take, on plavix, states he did take in the past with relief. Muscle Relaxants: None Topicals: None Other Prescription or OTC Pain Medications: Tylenol (Acetaminophen) Opioids: Tramadol Data Reviewed Today: Allergies: ALLERGIES Allergen Reactions Penicillins Unknown Social History Tobacco Use Smoking status: Former Current packs/day: 0.50 Types: Cigarettes Smokeless tobacco: Never Tobacco comments: Quit smoking a week or so ago (04/06/24) Vaping Use Vaping status: Never Used Substance Use Topics Alcohol use: Yes Comment: 6 pack a day Drug use: Never 04/20/2024 05/07/2024 INTAKE PAIN ASSESSMENT Are you having pain associated with your visit today? Yes, Provider notified Yes, Provider notified Pain Level 10 10 8 8 Pain Location Back-Lower Back-Lower Description Burning;Pulsating;Sharp;Shooting ;Throbbing Duration Amount of Time 10 10 Duration Units Minutes Years Minutes Frequency Intermittent Intermittent Intervention/Comfort measure Medication;Reposition;Relaxation ;Exercise;Massage;Positioning;Ro cking/holding Medication;Reposition Comments Pain comes after walking/standing for about 10 min Compliance: PDMP website checked and validated on 05/11/2024 by Bertha Schumacher APRN.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 All prescriptions have been APPROPRIATELY filled. No suspicious activity was identified. Risk Assessment: MOHINDER-7: 09/23/2023 MOHINDER - 7 SCORES Score 0 (0-4) minimal anxiety, (5-9) mild anxiety, (10-14) moderate anxiety, (15-21) severe anxiety PHQ-9: 09/23/2023 PHQ-9 Score 0 (0-4) minimal depression, (5-9) mild depression, (10-14) moderate depression, (15-19) moderately severe depression, (20-27) severe depression Diagnostic Studies: Relevant Imaging: MRI Spine Report MRI LUMBAR SPINE WO IVCON Exam End: 11/19/2023 12:39 PM (Final result) Narrative: * * *Final Report* * * DATE OF EXAM: Nov 19 2023 12:39PM [id number] [id number] - MRI LUMBAR SPINE WO IVCON / PROCEDURE REASON: Spinal 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 * * * * Physician Interpretation * * * * EXAMINATION: MRI LUMBAR SPINE WO IVCON Clinical history provided by the ordering clinician via order question and clinical decision support entries: Spinal stenosis, spondylolisthesis, radiculopathy, trauma. Spinal stenosis, lumbar. Spinal 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. Stated history: stenosis, fall, lbp, no prev. TECHNIQUE: Routine lumbosacral spine MR protocol without gadolinium. MQ: [id number] COMPARISON: 09/02/[address] RESULT: Counting reference: Lumbosacral junction. For the purposes of this report, L4-5 is considered the level of the iliac crest and assume there are 5 lumbar-type vertebrae. Anatomic variant: None. Alignment: Alignment is anatomic. Bone marrow signal/fracture: Moderate generalized edema throughout the L1 vertebral body associated with a ventral superior endplate predominant compression fracture deformity with approximately 20% ventral loss of vertebral body height. Incidental small vertebral body hemangioma along the dorsal right upper margin of the L2 vertebral body. Type II degenerative endplate changes at L2-L3 most pronounced along the right ventral margin. Mild type I degenerative endplate changes along the dorsal midline and left dorsolateral margin of L3-L4. Chronic nondisplaced right L5 pars defect and questionable integrity of the left L5 pars interarticularis. Conus: Normal in signal and morphology terminating at the level of the mid L1 vertebral body. Soft tissues: The dorsal paraspinal soft tissues are within normal limits. The paravertebral soft tissues are unremarkable. Imaged portions of the intra-abdominal intrapelvic contents demonstrate no significant findings. T11-T12: Canal and foramina are patent. T12-L1: Canal and foramina are patent. L1-L2: Prominent epidural lipomatous tissue mild to moderately effacing the thecal sac, but otherwise no substantial superimposed spinal canal or neuroforaminal stenosis. L2-L3: Prominent epidural lipomatous tissue with superimposed disc bulge and endplate osteophyte formation with resultant severe effacement of the thecal sac. Endplate osteophyte formation and facet arthropathy contributes to no more than mild left and no substantial right foraminal stenosis. L3-L4: Prominent epidural lipomatous tissue with superimposed disc bulge, endplate osteophyte formation, and facet arthropathy contributing to severe effacement of the thecal sac and mild left and no substantial right foraminal stenosis. L4-L5: Prominent epidural lipomatous tissue with disc bulge, endplate osteophyte formation, facet arthropathy contributing to no more than mild thecal sac effacement and no more than mild bilateral foraminal stenosis. L5-S1: Prominent epidural lipomatous tissue in conjunction with disc bulge, endplate osteophyte formation, and facet arthropathy contributing to mild to moderate thecal sac effacement and moderate right and mild left foraminal stenosis. Sacrum and iliac wings: The visualized sacrum and iliac wings are within normal limits. The presacral soft tissues are normal in appearance. Localizer images: Circumscribed subcentimeter T2 hyperintense focus in the posterior right hepatic lobe suggesting a small cyst or hemangioma. Impression: IMPRESSION: Subacute compression fracture deformity of the L1 ventral superior endplate with approximately 20% height loss and moderate generalized edema, but no convincing underlying pathologic marrow replacement. Diffuse lumbar epidural lipomatous hypertrophy with superimposed degenerative changes with resultant thecal sac narrowing being most pronounced and severe at L2-L3 and L3-L4. Neuroforaminal stenosis most pronounced and moderate in severity on the right at L5-S1. 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 Anatomic Thoracic/Lumbar Variant: None. L4-5 is considered the level of the iliac crest and assume there are 5 lumbar-type vertebrae. Package Winder[facility] Transcribe Date/Time: Nov 19 2023 3:30P Dictated by : MECHELLE EDMONDSON MD This examination was interpreted and the report reviewed and electronically signed by: MECHELLE EDMONDSON MD on Nov 19 2023 3:44PM EST Electrodiagnostic Study (EMG): None Recent Labs: Creatinine Date Value Ref Range Status 12/02/2023 0.90 0.73 - 1.22 mg/dL Final No results found for: GFR No results found for: PCGLUCOSE Current Medications, Past Medical History, Past Surgical History, Family History & Social History: Reviewed on today's date. Review of Systems: Reviewed on today's date. Pertinent Positives: MSK - pain in the region being treated Neuro: no weakness or numbness in the region being treated Skin: Negative (No itching) Eyes: Negative (No blurred or double vision) Respiratory: Negative (No Cough, [id number], Dyspnea on exertion, wheezing) Cardiovascular: Negative (No Chest Pain, Tightness, Pressure, Palpitations) Gastrointestinal: Negative (No Abdominal pain, Nausea, Vomiting, Constipation, Diarrhea) Genitourinary: Negative (No dysuria) Hematologic: Negative (No bleeding, bruising) OB: is Denied or Not Applicable Endocrine: Negative (No hot/cold intolerance) Psychiatric: Negative (No depression, anxiety or suicidal ideation) Physical Exam: There were no vitals filed for this visit. VIDEO EXAM: (if completed, performed via video enabled technology) No exam performed Audio only due to technical difficulties. IMPRESSION: 64 year old male presents with complaint(s) of lumbar spondylosis. Patient has had excellent relief from 2 medial branch nerve blocks at L3-L4 L4-L5. I am going to schedule for medial branch RFA at the same levels. This is a bilateral procedure as the patient does have pain, axial pain, bilaterally. Smoking cessation was discussed at this patient's visit patient stated understanding. Diagnoses: APPOINTMENT CANCELLED (primary encounter diagnosis) PLAN: Elis Bills would benefit from the following to reach personal goals for decreasing pain, improving function and work participation, and/or improving quality of life: Medications: Requested Prescriptions No prescriptions requested or ordered in this encounter Interventional Procedures: Radiofrequency Ablation (Thermal RFA) - Lumbar Medial Branches under fluoroscopic guidance BILATERAL SIDES at L3-4 and L4-5 Vascular Radiologist Needed: Radiofrequency Ablation - YES Anticoagulant - Hold Needed: NO HOLD REQUIRED FOR THIS PROCEDURE Anticoagulant - Currently Taking: None, Plavix (7 days when hold needed) Allergies (relevant): None Scheduling - Mobility (Can Patient independently transfer on/off an OR or Procedure table?): YES (May schedule at any location) Scheduling - Additional Info: None Studies: None Functional Christianity: NONE Referrals: No additional considerations at present Follow-up:3 weeks after RFA Depending on response to the above plan, consider: TBD Compliance and Clinic Policies Reviewed and/or Discussed Today: None Attribution: In addition to reviewing the information noted above, some elements copied from my most recent clinical note(s), including the physical exam (completed in entirety today), and the impression and plan sections, have been updated where appropriate. All reflect current medical decision making from today's date. I spent a total of 20 minutes on the date of the service which included preparing to see the patient, completing clinical documentation, obtaining and/or reviewing separately obtained history, performing a medically appropriate examination, and counseling and educating the patient/family/caregiver. Bertha Schumacher APRN.CNP Pain Management [facility] documented in this encounter [facility] 05-11-2024 Note HNO ID: [id number] Author: BERTHA SCHUMACHER APRN.NABOR Service: ? Author Type: Nurse Practitioner Type: Progress Notes Filed: 05/11/2024 16:01 Note Text: Called pt and Cancelled Appt VIRTUAL VISIT PROGRESS NOTE This is a virtual visit using MyChart Zoom Video Visit. It required patient-provider interaction for the medical decision making as documented below. I have communicated my name and active licensure. The patient's identity and physical location were verified at the time of this visit. Either the patient or their legal ict sales representative has been informed of the risks and benefits of -- and alternatives to -- treatment through a remote evaluation and consents to proceed with the evaluation remotely. [facility] Today's Date: 05/11/2024 Name: Elis Bills : 1960 Purpose: Follow-up Patient Evaluation - This is an established patient, returning today for continued evaluation and management of the chief complaint noted below (Telemedicine) Chief complaint: low back pain Referring Clinician: Pertinent Past Medical History: COPD, Obesity, HTN, HLD, CVA Pertinent Past Surgeries: B/L THR This is a virtual visit via Zoom, Phone and/or MyChart. It required patient-provider interaction for the medical decision making as documented below. Patient understands that privacy cannot be guaranteed. Note: Examination was limited today due to this being a virtual/telemedicine encounter Plan at last visit: (Seen on 04/27/2024 by Bertha Schumacher CNP) PLAN: Elis Bills would benefit from the following to reach personal goals for decreasing pain, improving function and work participation, and/or improving quality of life: Medications: Requested Prescriptions No prescriptions requested or ordered in this encounter Interventional Procedures: Radiofrequency Ablation (Thermal RFA) - Lumbar Medial Branches under fluoroscopic guidance BILATERAL SIDES at L3-4 and L4-5 Vascular Radiologist Needed: Radiofrequency Ablation - YES Anticoagulant - Hold Needed: NO HOLD REQUIRED FOR THIS PROCEDURE Anticoagulant - Currently Taking: None, Plavix (7 days when hold needed) Allergies (relevant): None Scheduling - Mobility (Can Patient independently transfer on/off an OR or Procedure table?): YES (May schedule at any location) Scheduling - Additional Info: None Studies: None Functional Christianity: NONE Referrals: No additional considerations at present Follow-up:3 weeks after RFA Depending on response to the above plan, consider: TBD Interval History: Overall pain and functional disability since last visit: unchanged New Complaints since last visit:no On 04/25/2024 patient had bilateral medial branch nerve blocks at L3-L4 L4-L5 with greater than 80% relief. Patient states that after he had the procedure done he had to visit his son who was in the hospital he walked all the way to the hospital room all the way back to the parking garage with no pain. That would have never happened currently or before the injection. This is the second in a series of 2 medial branch nerve blocks. Patient stating that both injections have worked well and would like to proceed with the RFA. Current Pain Medications: Neuropathics: NSAIDS: Muscle Relaxants: Topicals: Other Prescription or OTC Pain Medications: Opioids (when applicable): Greenlight Questionnaire GREENLIGHT Completed Date 09/23/2023 Opioid Risk Tool Opiod Risk Tool Date Completed 09/23/2023 Comments 0 MOHINDER-7 Anxiety Score 0 Completed Date 09/23/2023 PHQ9P Score 0 Completed Date 09/23/2023 Anti-depressants or Mood-Stabilizers: None Anti-Coagulants: Plavix Therapies Attended (Current or Most Recent): 12 sessions PT 09/23/2023 AG SPINE COMBINATION Questionnaire GREENLIGHT Completed Date 09/23/2023 Questionnaire Opiod Risk Tool Completed Date 09/23/2023 Comments 0 No question data found. (All drug screens are appropriate unless indicated otherwise) Notable Events During Course of Treatment: 09/22/2023 - Initial HPI (Obtained by Bertha Schumacher CNP). DURATION AND ONSET: The pain complaint has been present for approximately 9 months. The pain had a sudden onset. The mechanism of injury is unknown. RED FLAG SYMPTOMS: denies red flags. PAIN DESCRIPTION: Timing: Intermittent Character: Burning, Sharp, Stabbing Primary Location: low back Radiation: none Exacerbating factors: Walking, getting up from a seated position Relieving factors: Sitting Interferes with: physical activity and work Patient is here today complaining of low back pain without radicular symptoms. Patient stating that he has had an x-ray of his lumbar spine but no MRI. Patient stating that he has had an injection into his low back, with no relief. (more content not included)... [facility] 05-10-2024 Note Addended by: AKLEE MAZARIEGOS on: 05/10/2024 08:38 AM Modules accepted: Orders [facility] 05-10-2024 Miscellaneous Notes Addended by: KALEE MAZARIEGOS on: 05/10/2024 08:38 AM Modules accepted: Orders documented in this encounter [facility] 05-10-2024 Nurse Note Order has been placed in the patient's chart with the following parameters for discharge from the physician: Patient is alert and oriented Vitals: Diastolic/Systolic +/- 20mmHg Respirations: 12-18 Pulse: 60-100 SpO2 is greater than or equal to 90% Patient has no nausea or vomiting Patient has no dizziness Pain level is +/- 2 from initial evaluation Dressing, dry and intact with no evidence of bleeding Criteria has been met, patient is okay to be discharged per the physician. Physician has gone in and evaluated the patient. Dressing dry and intact. No drainage noted. The patient denies nausea, numbness, tingling, weakness, shortness of breath, dizziness, or headache. Pain level 0/10. Vital signs within normal limits. Patient denied needing walked out by clinical staff and denied needing a wheelchair. Patient given discharge instructions and sent to transportation via ambulatory method. Patient left in good condition. [facility] 05-10-2024 Nurse Note Order has been placed in the patient's chart with the following parameters for discharge from the physician: Patient is alert and oriented Vitals: Diastolic/Systolic +/- 20mmHg Respirations: 12-18 Pulse: 60-100 SpO2 is greater than or equal to 90% Patient has no nausea or vomiting Patient has no dizziness Pain level is +/- 2 from initial evaluation Dressing, dry and intact with no evidence of bleeding Criteria has been met, patient is okay to be discharged per the physician. Physician has gone in and evaluated the patient. Dressing dry and intact. No drainage noted. The patient denies nausea, numbness, tingling, weakness, shortness of breath, dizziness, or headache. Pain level 0/10. Vital signs within normal limits. Patient denied needing walked out by clinical staff and denied needing a wheelchair. Patient given discharge instructions and sent to transportation via ambulatory method. Patient left in good condition. Procedure to be performed: L3/4 - L4/5 Unilateral Right Radiofrequency Ablation Patient was walked from exam room to procedure room and assisted onto the procedure tablePatient s procedure was performed in an [facility] Procedure room. Pause completed at each level by provider to verify correct level and laterality placement Pressure was applied to patient s injection site(s) and bleeding was minimal. Patient had no complaint of shortness of breath, dizziness, headache, numbness, tingling, weakness or complications from procedure. Patient was assisted from the procedure table and walked back to exam room. Patient was advised a clinician will be to obtain another set of vitals. Time Out: 751 Confirmed patient name, date of , procedure site, laterality, and allergies Procedure Start: 754 Procedure End: 812 Vascular Radiologist's Name: MEHREEN Are you on a blood thinner: PLAVIX If yes, is a hold required: N Last dose of blood thinner: 05/09/24 INR Result today: N Do you require a Lovenox bridge:N Are you a diabetic:N Are you/or could you be : N Are you taking Xanax for the procedure: N Are you currently on a steroid? N Are you currently on an antibiotic: N documented in this encounter [facility] 05-10-2024 Nurse Note Procedure to be performed: L3/4 - L4/5 Unilateral Right Radiofrequency Ablation Patient was walked from exam room to procedure room and assisted onto the procedure tablePatient s procedure was performed in an [facility] Procedure room. Pause completed at each level by provider to verify correct level and laterality placement Pressure was applied to patient s injection site(s) and bleeding was minimal. Patient had no complaint of shortness of breath, dizziness, headache, numbness, tingling, weakness or complications from procedure. Patient was assisted from the procedure table and walked back to exam room. Patient was advised a clinician will be to obtain another set of vitals. Time Out: 751 Confirmed patient name, date of , procedure site, laterality, and allergies Procedure Start: 754 Procedure End: 812 [facility] 05-10-2024 Instructions Jael Lamas LPN - 05/10/2024 7:49 AM EDT PROCEDURE DISCHARGE INSTRUCTIONS 05/10/2024 Elis Bills 1960 Physician: Everton Decker MD Procedure: BILATERAL L3/4, L4/5 LUMBAR RADIOFREQUENCY ABLATION Post Procedure Instructions: If sedation not given, no driving for 3 hours after the procedure., Rest the day of the procedure., You may resume normal activities the day after the procedure, as tolerated., Avoid movements that may aggravate pain., Apply cold compresses to injection site if needed., If medically acceptable, take over the counter anti-inflammatories such as ibuprofen or Aleve if needed for post procedure discomfort., and Your pain should subside in the next 4-6 weeks. If you have any of the following signs or symptoms, please call our office at Fever and/or chills Swelling and/or drainage from injection site New pain that is different than your normal pain (other than soreness at the site of the procedure) Stiff neck Shortness of breath Severe increase in pain Motor dysfunctions, such as difficulty walking, bowel or bladder dysfunction and/or incontinence Headache that is severe, light sensitive or develops when changing positions (positional headache) Nausea and/or vomiting accompanied by headache that started 24-48 hours after the procedure If you have any emergent concerns, please call 911 or go to your local emergency room. Please also contact our office to let us know you will be seeking emergency care and why. documented in this encounter [facility] 05-10-2024 Note HNO ID: [id number] Author: EVERTON DECKER MD Service: ? Author Type: Physician Type: Progress Notes Filed: 05/10/2024 08:31 Note Text: [facility] Date: 05/10/2024 Patient name: Elis Bills Physician performing procedure: Everton Decker M.D., M.B.A. PROCEDURE: Radiofrequency Ablation (Thermal RFA) - Lumbar Medial Branches under fluoroscopic guidance RIGHT-SIDED at L3-4, L4-5, and L5-S1 COMMENTS: Pain has only been right-sided recently, decided to hold off on left side for now. DIAGNOSIS: (M47.816) Lumbar spondylosis (primary encounter diagnosis) INJECTATE: A total of 4 ml volume was injected The injectate consisted of: 1 ml of Depo-Medrol (40mg/ml), The remainder consisting of 0.75% Bupivacaine, . Each site received equal volumes of this injectate. Improvement after today's procedure: as per nursing report HPI: Elis Bills is an 64 year old MALE who presents today, in pain, for the procedure noted above. Review of Systems: Pertinent Positives: MSK: pain in the region being treated Neuro: weakness or numbness in the region being treated (unless otherwise noted) Skin: Negative (No itching) Eyes: Negative (No blurred or double vision) Respiratory: Negative (No Cough, [id number], Dyspnea on exertion, wheezing) Cardiovascular: Negative (No Chest Pain, Tightness, Pressure, Palpitations) Gastrointestinal: Negative (No Abdominal pain, Nausea, Vomiting, Constipation, Diarrhea) Genitourinary: Negative (No dysuria) Hematologic: Negative (No bleeding, bruising) OB: is Denied or Not Applicable Endocrine: Negative (No hot/cold intolerance) Psychiatric: Negative (No depression, anxiety or suicidal ideation) PAST MEDICAL HISTORY Diagnosis Date COPD (chronic obstructive pulmonary disease) (HCC) Hypercholesteremia Stroke (HCC) History reviewed. No pertinent surgical history. FAMILY HISTORY Problem Relation Age of Onset No Known Problems Mother Leukemia Father Social History Tobacco Use Smoking status: Former Current packs/day: 0.50 Types: Cigarettes Smokeless tobacco: Never Tobacco comments: Quit smoking a week or so ago (04/06/24) Vaping Use Vaping status: Never Used Substance Use Topics Alcohol use: Yes Comment: 6 pack a day Drug use: Never Current Outpatient Medications on File Prior to Visit Medication Sig cyclobenzaprine (FLEXERIL) 10 mg tablet Take 1 tablet by mouth three times a day as needed. nicotine polacrilex (NICORETTE) 4 mg gum Take 1 Each by mouth as needed. albuterol HFA (PROVENTIL HFA, VENTOLIN HFA) 90 mcg/actuation inhaler Inhale 2 Puffs as instructed every 4 hours as needed for wheezing/shortness of breath. albuterol (PROVENTIL) 2.5 mg /3 mL (0.083 %) nebulizer solution Use 3 mL via nebulizer every 4 hours as needed for wheezing/shortness of breath. Inhale over 5-15 minutes atorvastatin (LIPITOR) 80 mg tablet Take 80 mg by mouth once daily. montelukast (SINGULAIR) 10 mg tablet Take 1 tablet by mouth daily at bedtime. budesonide (PULMICORT) 0.5 mg/2 mL nebulizer solution Use 2 mL via nebulizer two times a day. lisinopril 2.5 mg tablet Take 2.5 mg by mouth once daily. clopidogrel (PLAVIX) 75 mg tablet Take 75 mg by mouth once daily. OMEPRAZOLE (PRILOSEC ORAL) Take 10 mg by mouth as needed. Unsure of dose No current facility-administered medications on file prior to visit. Objective Exam: Vitals: As per nursing documentation Constitutional: Normal Appearance, Oriented to Time, Place and Person Head: No lacerations, no external signs of trauma Eyes: Conjunctiva clear. No discharge from the eyes Cardiovascular: Appears well-perfused Pulmonary: Non-labored respirations Abdominal: Non-distended Skin: No visible rashes or ecchymosis Psychiatric: Mood appropriate for given condition Neurological: Gross movements are limited by pain, but otherwise unremarkable Data Reviewed: Nursing note and vitals reviewed. Additional imaging reviewed as appropriate Assessment and Plan: As noted above [place] protocol documentation / Pre-Procedure Checklist: Consent: Obtained in writing prior to procedure I had a nice discussion with the patient today about their current pain and the pathology that could be causing it We discussed different treatment options, including risks, benefits and alternatives. We agreed to proceed as previously discussed, or the plan was modified in accordance with the comments noted above Unless stated otherwise in the procedure note, the risks include but are not limited to infection, allergic reaction, increased pain, lack of therapeutic benefit, steroid reaction, nerve damage, paralysis, stroke, epidural hematoma, syncope, headache, respiratory or cardiac arrest, pneumothorax, and scar formation Once the plan was agreed upon, the patient gave written consent to proceed and was transpo (more content not included)... [facility] 05-10-2024 History of Present illness Narrative [facility] Date: 05/10/2024 Patient name: Elis Bills Physician performing procedure: Everton Decker M.D., M.B.A. PROCEDURE: Radiofrequency Ablation (Thermal RFA) - Lumbar Medial Branches under fluoroscopic guidance RIGHT-SIDED at L3-4, L4-5, and L5-S1 COMMENTS: Pain has only been right-sided recently, decided to hold off on left side for now. DIAGNOSIS: (M47.816) Lumbar spondylosis (primary encounter diagnosis) INJECTATE: A total of 4 ml volume was injected The injectate consisted of: 1 ml of Depo-Medrol (40mg/ml), The remainder consisting of 0.75% Bupivacaine, . Each site received equal volumes of this injectate. Improvement after today's procedure: as per nursing report HPI: Elis Bills is an 64 year old MALE who presents today, in pain, for the procedure noted above. Review of Systems: Pertinent Positives: MSK: pain in the region being treated Neuro: weakness or numbness in the region being treated (unless otherwise noted) Skin: Negative (No itching) Eyes: Negative (No blurred or double vision) Respiratory: Negative (No Cough, [id number], Dyspnea on exertion, wheezing) Cardiovascular: Negative (No Chest Pain, Tightness, Pressure, Palpitations) Gastrointestinal: Negative (No Abdominal pain, Nausea, Vomiting, Constipation, Diarrhea) Genitourinary: Negative (No dysuria) Hematologic: Negative (No bleeding, bruising) OB: is Denied or Not Applicable Endocrine: Negative (No hot/cold intolerance) Psychiatric: Negative (No depression, anxiety or suicidal ideation) PAST MEDICAL HISTORY Diagnosis Date COPD (chronic obstructive pulmonary disease) (HCC) Hypercholesteremia Stroke (HCC) History reviewed. No pertinent surgical history. FAMILY HISTORY Problem Relation Age of Onset No Known Problems Mother Leukemia Father Social History Tobacco Use Smoking status: Former Current packs/day: 0.50 Types: Cigarettes Smokeless tobacco: Never Tobacco comments: Quit smoking a week or so ago (04/06/24) Vaping Use Vaping status: Never Used Substance Use Topics Alcohol use: Yes Comment: 6 pack a day Drug use: Never Current Outpatient Medications on File Prior to Visit Medication Sig cyclobenzaprine (FLEXERIL) 10 mg tablet Take 1 tablet by mouth three times a day as needed. nicotine polacrilex (NICORETTE) 4 mg gum Take 1 Each by mouth as needed. albuterol HFA (PROVENTIL HFA, VENTOLIN HFA) 90 mcg/actuation inhaler Inhale 2 Puffs as instructed every 4 hours as needed for wheezing/shortness of breath. albuterol (PROVENTIL) 2.5 mg /3 mL (0.083 %) nebulizer solution Use 3 mL via nebulizer every 4 hours as needed for wheezing/shortness of breath. Inhale over 5-15 minutes atorvastatin (LIPITOR) 80 mg tablet Take 80 mg by mouth once daily. montelukast (SINGULAIR) 10 mg tablet Take 1 tablet by mouth daily at bedtime. budesonide (PULMICORT) 0.5 mg/2 mL nebulizer solution Use 2 mL via nebulizer two times a day. lisinopril 2.5 mg tablet Take 2.5 mg by mouth once daily. clopidogrel (PLAVIX) 75 mg tablet Take 75 mg by mouth once daily. OMEPRAZOLE (PRILOSEC ORAL) Take 10 mg by mouth as needed. Unsure of dose No current facility-administered medications on file prior to visit. Objective Exam: Vitals: As per nursing documentation Constitutional: Normal Appearance, Oriented to Time, Place and Person Head: No lacerations, no external signs of trauma Eyes: Conjunctiva clear. No discharge from the eyes Cardiovascular: Appears well-perfused Pulmonary: Non-labored respirations Abdominal: Non-distended Skin: No visible rashes or ecchymosis Psychiatric: Mood appropriate for given condition Neurological: Gross movements are limited by pain, but otherwise unremarkable Data Reviewed: Nursing note and vitals reviewed. Additional imaging reviewed as appropriate Assessment and Plan: As noted above [place] protocol documentation / Pre-Procedure Checklist: Consent: Obtained in writing prior to procedure I had a nice discussion with the patient today about their current pain and the pathology that could be causing it We discussed different treatment options, including risks, benefits and alternatives. We agreed to proceed as previously discussed, or the plan was modified in accordance with the comments noted above Unless stated otherwise in the procedure note, the risks include but are not limited to infection, allergic reaction, increased pain, lack of therapeutic benefit, steroid reaction, nerve damage, paralysis, stroke, epidural hematoma, syncope, headache, respiratory or cardiac arrest, pneumothorax, and scar formation Once the plan was agreed upon, the patient gave written consent to proceed and was transported into the procedure room Surgical/Procedure pause or Time Out : Time Out was led by the physician in the procedure room, with the patient and all staff present and participating The following information was verified during the Time Out process: Patient name, patient date of , procedure site (marked), laterality, anticoagulants and allergies Procedure: The patient was prepped and draped in a sterile fashion in the prone position after informed consent was signed and all patient questions were answered including the risks, benefits, alternative treatment options, and prognosis. The risks are as mentioned above, except for pneumothorax. For all levels except L5, the transverse processes of these levels were localized. A 25 gauge needle was utilized to infiltrate the cutaneous layers with 1-2 ccs. of buffered 1% Lidocaine without Epinephrine for local anesthesia. The outer cannula was inserted ventrally and medially down to the base of the periosteum at the superomedial aspect of the transverse process. This was confirmed with an oblique view as well. To denervate the L5 facet joint nerve (the L5 dorsal ramus), the skin was anesthetized as noted above, then the outer cannula was fluoroscopically positioned at the junction of the superior articular process of the sacrum and the ala. For all levels treated, the outer cannula was placed as described above and the position was then confirmed with biplanar imaging. Test stimulation was done at motor levels to ensure that there was no radicular stimulation. The soft tissues were then infiltrated with 1-2 ccs. Of 2% Lidocaine without Epinephrine at each level. Subsequent to this, a pulsed neurotomy was carried out for 90 seconds at 55 degrees Celsius. Then, percutaneous neurotomy was carried out for 90 seconds at 80 degrees Celsius one additional time at each level for a total of three lesions per level. It was then repeated for each facet joint nerve mentioned above. Appropriate radiographs were obtained to verify the probe placement during the neurotomy. Please see the nursing note for exact times (time out, procedure start, procedure end). After careful removal of the needle, there was minimal bleeding. The injection site was covered with appropriate sterile dressing. The patient was noted to have tolerated the procedure well and was discharged after an appropriate period of post-procedure observation. The patient was instructed to contact us if there were any complications. The patient was advised to follow-up with the requesting physician within one to two weeks or as per their requested follow-up plan. Post procedure visit summary with written instructions was offered to the patient. Everton ROGERSA Pain Management [facility] Review of Systems Constitutional: Positive for activity change. Musculoskeletal: Positive for back pain and gait problem. documented in this encounter [facility] 05-10-2024 Note HNO ID: [id number] Author: CRICKET MARIE LPN Service: ? Author Type: LICENSED NURSE Type: Progress Notes Filed: 05/10/2024 08:31 Note Text: Review of Systems Constitutional: Positive for activity change. Musculoskeletal: Positive for back pain and gait problem. [facility] 05-10-2024 Nurse Note Vascular Radiologist's Name: MEHREEN Are you on a blood thinner: PLAVIX If yes, is a hold required: N Last dose of blood thinner: 05/09/24 INR Result today: N Do you require a Lovenox bridge:N Are you a diabetic:N Are you/or could you be : N Are you taking Xanax for the procedure: N Are you currently on a steroid? N Are you currently on an antibiotic: N [facility] 04-28-2024 Telephone encounter Note Images from the original note were not included. [facility] 04-28-2024 Miscellaneous Notes Images from the original note were not included. I spoke to Vivian Fried after my discussion with the pt and she is going to attempt to get him scheduled in that time slot, please defer to her. Thanks. Called patient to scheduled BL RFA per Bertha's check out notes on their virtual visit today. Patient has his 2nd MBB procedure on 05/10 ,Patient states that when he seen on on 04/26 for his 1st MBB , they spoke about doing the RFA on 05/10 instead of the 2nd MBB. I was unsure so I advised patient that I would reach out and ask. Also,patient states all his pain is on the right side of his back so he is confused as to why he is getting both sides done. Please clarify . Celeste Tong documented in this encounter [facility] 04-27-2024 Telephone encounter Note I spoke to Vivian Fried after my discussion with the pt and she is going to attempt to get him scheduled in that time slot, please defer to her. Thanks. [facility] 04-27-2024 Telephone encounter Note Called patient to scheduled BL RFA per Bertha's check out notes on their virtual visit today. Patient has his 2nd MBB procedure on 05/10 ,Patient states that when he seen on on 04/26 for his 1st MBB , they spoke about doing the RFA on 05/10 instead of the 2nd MBB. I was unsure so I advised patient that I would reach out and ask. Also,patient states all his pain is on the right side of his back so he is confused as to why he is getting both sides done. Please clarify . Celeste Tong [facility] 04-27-2024 Telephone encounter Note Opened in errori [facility] 04-27-2024 Miscellaneous Notes Opened in errori documented in this encounter [facility] 04-27-2024 Instructions Bertha Schumacher APRN.CNP - 04/27/2024 3:33 PM EDT Ice and heat as tolerated Activity as tolerated documented in this encounter [facility] 04-27-2024 History of Present illness Narrative Images from the original note were not included. VIRTUAL VISIT PROGRESS NOTE This is a virtual visit using [employer] Mobile[employer] Zoom Video Visit. It required patient-provider interaction for the medical decision making as documented below. I have communicated my name and active licensure. The patient's identity and physical location were verified at the time of this visit. Either the patient or their legal ict sales representative has been informed of the risks and benefits of -- and alternatives to -- treatment through a remote evaluation and consents to proceed with the evaluation remotely. [facility] Today's Date: 04/27/2024 Name: Elis Bills : 1960 Purpose: Follow-up Patient Evaluation - This is an established patient, returning today for continued evaluation and management of the chief complaint noted below (Telemedicine) Chief complaint: low back pain Referring Clinician: Pertinent Past Medical History: COPD, Obesity, HTN, HLD, CVA Pertinent Past Surgeries: B/L THR This is a virtual visit via Zoom, Phone and/or [employer] Mobilehart. It required patient-provider interaction for the medical decision making as documented below. Patient understands that privacy cannot be guaranteed. Note: Examination was limited today due to this being a virtual/telemedicine encounter Plan at last visit: (Seen on 03/30/2024 by Bertha Schumacher CNP) Medications: Requested Prescriptions No prescriptions requested or ordered in this encounter Interventional Procedures: Medial Branch Block (Diagnostic only, NO STEROIDS) under fluoroscopic guidance BILATERAL SIDES at L3-4 and L4-5 Vascular Radiologist Needed: Medial Branch Blocks - YES Anticoagulant - Hold Needed: NO HOLD REQUIRED FOR THIS PROCEDURE Anticoagulant - Currently Taking: None Allergies (relevant): None Scheduling - Mobility (Can Patient independently transfer on/off an OR or Procedure table?): YES (May schedule at any location) Scheduling - Additional Info: None Studies: None Functional Christianity: NONE Referrals: No additional considerations at present Follow-up: Follow up 1-5 days after each procedure as a VV Depending on response to the above plan, consider: TBD Interval History: Overall pain and functional disability since last visit: unchanged New Complaints since last visit:no On 04/25/2024 patient had bilateral medial branch nerve blocks at L3-L4 L4-L5 with greater than 80% relief. Patient states that after he had the procedure done he had to visit his son who was in the hospital he walked all the way to the hospital room all the way back to the parking garage with no pain. That would have never happened currently or before the injection. This is the second in a series of 2 medial branch nerve blocks. Patient stating that both injections have worked well and would like to proceed with the RFA. Current Pain Medications: Neuropathics: NSAIDS: Muscle Relaxants: Topicals: Other Prescription or OTC Pain Medications: Opioids (when applicable): Greenlight Questionnaire GREENLIGHT Completed Date 09/23/2023 Opioid Risk Tool Opiod Risk Tool Date Completed 09/23/2023 Comments 0 MOHINDER-7 Anxiety Score 0 Completed Date 09/23/2023 PHQ9P Score 0 Completed Date 09/23/2023 Anti-depressants or Mood-Stabilizers: None Anti-Coagulants: Plavix Therapies Attended (Current or Most Recent): 12 sessions PT 09/23/2023 AG SPINE COMBINATION Questionnaire GREENLIGHT Completed Date 09/23/2023 Questionnaire Opiod Risk Tool Completed Date 09/23/2023 Comments 0 No question data found. (All drug screens are appropriate unless indicated otherwise) Notable Events During Course of Treatment: 09/22/2023 - Initial HPI (Obtained by Bertha Schumacher CNP). DURATION AND ONSET: The pain complaint has been present for approximately 9 months. The pain had a sudden onset. The mechanism of injury is unknown. RED FLAG SYMPTOMS: denies red flags. PAIN DESCRIPTION: Timing: Intermittent Character: Burning, Sharp, Stabbing Primary Location: low back Radiation: none Exacerbating factors: Walking, getting up from a seated position Relieving factors: Sitting Interferes with: physical activity and work Patient is here today complaining of low back pain without radicular symptoms. Patient stating that he has had an x-ray of his lumbar spine but no MRI. Patient stating that he has had an injection into his low back, with no relief. Patient states he did not care for the explanation of the next plan of care from this provider and so he is changing pain management. Patient has done recent physical therapy. 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 States he is fine until he starts walking or moving and then the pain increases. States he is fine at sitting. Patient states he was prescribed tramadol and it is not helping at all with his pain so he stopped use. Patient is also on Plavix and is aware that he cannot take NSAIDs. Patient is here to see what can be done for his back pain as it is interfering with his activities of daily living and his work. Treatment History: PAIN PROCEDURES: DATE PROCEDURE IMPROVEMENT 04/25/2024 B/L MBNB L3-L5 >80% 03/16/2024 ILESI L4-L5 90% for 4 days 12/16/23 MBB BL L3-4 and L4-5. 80% 10/28/2023 MBB B/L L4-S1 No relief MEDICATIONS Taken TO DATE (for the chief complaint(s)): Neuropathics: None NSAIDS: unable to take, on plavix, states he did take in the past with relief. Muscle Relaxants: None Topicals: None Other Prescription or OTC Pain Medications: Tylenol (Acetaminophen) Opioids: Tramadol Data Reviewed Today: Allergies: ALLERGIES Allergen Reactions Penicillins Unknown Social History Tobacco Use Smoking status: Former Current packs/day: 0.50 Types: Cigarettes Smokeless tobacco: Never Tobacco comments: Quit smoking a week or so ago (04/06/24) Vaping Use Vaping status: Never Used Substance Use Topics Alcohol use: Yes Comment: 6 pack a day Drug use: Never 04/05/2024 04/20/2024 INTAKE PAIN ASSESSMENT Are you having pain associated with your visit today? Yes, Provider notified Yes, Provider notified Pain Level 10 10 10 Pain Location Back-Lower Back-Lower Description Sharp;Shooting;Spasm;Stabbing;St iffness Burning;Pulsating;Sharp;Shooting ;Throbbing Duration Amount of Time 10 10 Duration Units Minutes Minutes Years Frequency Continuous Intermittent Intervention/Comfort measure Medication;Reposition;Relaxation ;Exercise;Massage Medication;Reposition;Relaxation ;Exercise;Massage;Positioning;Ro cking/holding Comments Bent over while standing due to pain cannot walk far Compliance: PDMP website checked and validated on 04/27/2024 by Bertha Schumacher APRN.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 All prescriptions have been APPROPRIATELY filled. No suspicious activity was identified. Risk Assessment: MOHINDER-7: 09/23/2023 MOHINDER - 7 SCORES Score 0 (0-4) minimal anxiety, (5-9) mild anxiety, (10-14) moderate anxiety, (15-21) severe anxiety PHQ-9: 09/23/2023 PHQ-9 Score 0 (0-4) minimal depression, (5-9) mild depression, (10-14) moderate depression, (15-19) moderately severe depression, (20-27) severe depression Diagnostic Studies: Relevant Imaging: MRI Spine Report MRI LUMBAR SPINE WO IVCON Exam End: 11/19/2023 12:39 PM (Final result) Narrative: * * *Final Report* * * DATE OF EXAM: Nov 19 2023 12:39PM BR [id number] - MRI LUMBAR SPINE WO IVCON / PROCEDURE REASON: Spinal 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 * * * * Physician Interpretation * * * * EXAMINATION: MRI LUMBAR SPINE WO IVCON Clinical history provided by the ordering clinician via order question and clinical decision support entries: Spinal stenosis, spondylolisthesis, radiculopathy, trauma. Spinal stenosis, lumbar. Spinal 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. Stated history: stenosis, fall, lbp, no prev. TECHNIQUE: Routine lumbosacral spine MR protocol without gadolinium. MQ: [id number] COMPARISON: 09/02/[address] RESULT: Counting reference: Lumbosacral junction. For the purposes of this report, L4-5 is considered the level of the iliac crest and assume there are 5 lumbar-type vertebrae. Anatomic variant: None. Alignment: Alignment is anatomic. Bone marrow signal/fracture: Moderate generalized edema throughout the L1 vertebral body associated with a ventral superior endplate predominant compression fracture deformity with approximately 20% ventral loss of vertebral body height. Incidental small vertebral body hemangioma along the dorsal right upper margin of the L2 vertebral body. Type II degenerative endplate changes at L2-L3 most pronounced along the right ventral margin. Mild type I degenerative endplate changes along the dorsal midline and left dorsolateral margin of L3-L4. Chronic nondisplaced right L5 pars defect and questionable integrity of the left L5 pars interarticularis. Conus: Normal in signal and morphology terminating at the level of the mid L1 vertebral body. Soft tissues: The dorsal paraspinal soft tissues are within normal limits. The paravertebral soft tissues are unremarkable. Imaged portions of the intra-abdominal intrapelvic contents demonstrate no significant findings. T11-T12: Canal and foramina are patent. T12-L1: Canal and foramina are patent. L1-L2: Prominent epidural lipomatous tissue mild to moderately effacing the thecal sac, but otherwise no substantial superimposed spinal canal or neuroforaminal stenosis. L2-L3: Prominent epidural lipomatous tissue with superimposed disc bulge and endplate osteophyte formation with resultant severe effacement of the thecal sac. Endplate osteophyte formation and facet arthropathy contributes to no more than mild left and no substantial right foraminal stenosis. L3-L4: Prominent epidural lipomatous tissue with superimposed disc bulge, endplate osteophyte formation, and facet arthropathy contributing to severe effacement of the thecal sac and mild left and no substantial right foraminal stenosis. L4-L5: Prominent epidural lipomatous tissue with disc bulge, endplate osteophyte formation, facet arthropathy contributing to no more than mild thecal sac effacement and no more than mild bilateral foraminal stenosis. L5-S1: Prominent epidural lipomatous tissue in conjunction with disc bulge, endplate osteophyte formation, and facet arthropathy contributing to mild to moderate thecal sac effacement and moderate right and mild left foraminal stenosis. Sacrum and iliac wings: The visualized sacrum and iliac wings are within normal limits. The presacral soft tissues are normal in appearance. Localizer images: Circumscribed subcentimeter T2 hyperintense focus in the posterior right hepatic lobe suggesting a small cyst or hemangioma. Impression: IMPRESSION: Subacute compression fracture deformity of the L1 ventral superior endplate with approximately 20% height loss and moderate generalized edema, but no convincing underlying pathologic marrow replacement. Diffuse lumbar epidural lipomatous hypertrophy with superimposed degenerative changes with resultant thecal sac narrowing being most pronounced and severe at L2-L3 and L3-L4. Neuroforaminal stenosis most pronounced and moderate in severity on the right at L5-S1. 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 Anatomic Thoracic/Lumbar Variant: None. L4-5 is considered the level of the iliac crest and assume there are 5 lumbar-type vertebrae. Package Winder: YAIR Transcribe Date/Time: Nov 19 2023 3:30P Dictated by : MECHELLE EDMONDSON MD This examination was interpreted and the report reviewed and electronically signed by: MECHELLE EDMONDSON MD on Nov 19 2023 3:44PM EST Electrodiagnostic Study (EMG): None Recent Labs: Creatinine Date Value Ref Range Status 12/02/2023 0.90 0.73 - 1.22 mg/dL Final No results found for: GFR No results found for: PCGLUCOSE Current Medications, Past Medical History, Past Surgical History, Family History & Social History: Reviewed on today's date. Review of Systems: Reviewed on today's date. Pertinent Positives: MSK - pain in the region being treated Neuro: no weakness or numbness in the region being treated Skin: Negative (No itching) Eyes: Negative (No blurred or double vision) Respiratory: Negative (No Cough, [id number], Dyspnea on exertion, wheezing) Cardiovascular: Negative (No Chest Pain, Tightness, Pressure, Palpitations) Gastrointestinal: Negative (No Abdominal pain, Nausea, Vomiting, Constipation, Diarrhea) Genitourinary: Negative (No dysuria) Hematologic: Negative (No bleeding, bruising) OB: is Denied or Not Applicable Endocrine: Negative (No hot/cold intolerance) Psychiatric: Negative (No depression, anxiety or suicidal ideation) Physical Exam: There were no vitals filed for this visit. VIDEO EXAM: (if completed, performed via video enabled technology) No exam performed Audio only due to technical difficulties. IMPRESSION: 64 year old male presents with complaint(s) of lumbar spondylosis. Patient has had excellent relief from 2 medial branch nerve blocks at L3-L4 L4-L5. I am going to schedule for medial branch RFA at the same levels. This is a bilateral procedure as the patient does have pain, axial pain, bilaterally. Smoking cessation was discussed at this patient's visit patient stated understanding. Diagnoses: (M47.816) Lumbar spondylosis (primary encounter diagnosis) (M48.061) Spinal stenosis, lumbar region, without neurogenic claudication PLAN: Elis Bills would benefit from the following to reach personal goals for decreasing pain, improving function and work participation, and/or improving quality of life: Medications: Requested Prescriptions No prescriptions requested or ordered in this encounter Interventional Procedures: Radiofrequency Ablation (Thermal RFA) - Lumbar Medial Branches under fluoroscopic guidance BILATERAL SIDES at L3-4 and L4-5 Vascular Radiologist Needed: Radiofrequency Ablation - YES Anticoagulant - Hold Needed: NO HOLD REQUIRED FOR THIS PROCEDURE Anticoagulant - Currently Taking: None, Plavix (7 days when hold needed) Allergies (relevant): None Scheduling - Mobility (Can Patient independently transfer on/off an OR or Procedure table?): YES (May schedule at any location) Scheduling - Additional Info: None Studies: None Functional Christianity: NONE Referrals: No additional considerations at present Follow-up:3 weeks after RFA Depending on response to the above plan, consider: TBD Compliance and Clinic Policies Reviewed and/or Discussed Today: None Attribution: In addition to reviewing the information noted above, some elements copied from my most recent clinical note(s), including the physical exam (completed in entirety today), and the impression and plan sections, have been updated where appropriate. All reflect current medical decision making from today's date. I spent a total of 20 minutes on the date of the service which included preparing to see the patient, completing clinical documentation, obtaining and/or reviewing separately obtained history, performing a medically appropriate examination, and counseling and educating the patient/family/caregiver. Bertha Schumacher APRN.CNP Pain Management [facility] documented in this encounter [facility] 04-27-2024 Note HNO ID: [id number] Author: BERTHA SCHUMACHER APRN.CNP Service: ? Author Type: Nurse Practitioner Type: Progress Notes Filed: 04/27/2024 15:33 Note Text: VIRTUAL VISIT PROGRESS NOTE This is a virtual visit using [employer] Zoom Video Visit. It required patient-provider interaction for the medical decision making as documented below. I have communicated my name and active licensure. The patient's identity and physical location were verified at the time of this visit. Either the patient or their legal ict sales representative has been informed of the risks and benefits of -- and alternatives to -- treatment through a remote evaluation and consents to proceed with the evaluation remotely. [facility] Today's Date: 04/27/2024 Name: Elis Bills : 1960 Purpose: Follow-up Patient Evaluation - This is an established patient, returning today for continued evaluation and management of the chief complaint noted below (Telemedicine) Chief complaint: low back pain Referring Clinician: Pertinent Past Medical History: COPD, Obesity, HTN, HLD, CVA Pertinent Past Surgeries: B/L THR This is a virtual visit via Zoom, Phone and/or [employer]. It required patient-provider interaction for the medical decision making as documented below. Patient understands that privacy cannot be guaranteed. Note: Examination was limited today due to this being a virtual/telemedicine encounter Plan at last visit: (Seen on 03/30/2024 by Bertha Schumacher CNP) Medications: Requested Prescriptions No prescriptions requested or ordered in this encounter Interventional Procedures: Medial Branch Block (Diagnostic only, NO STEROIDS) under fluoroscopic guidance BILATERAL SIDES at L3-4 and L4-5 Vascular Radiologist Needed: Medial Branch Blocks - YES Anticoagulant - Hold Needed: NO HOLD REQUIRED FOR THIS PROCEDURE Anticoagulant - Currently Taking: None Allergies (relevant): None Scheduling - Mobility (Can Patient independently transfer on/off an OR or Procedure table?): YES (May schedule at any location) Scheduling - Additional Info: None Studies: None Functional Christianity: NONE Referrals: No additional considerations at present Follow-up: Follow up 1-5 days after each procedure as a VV Depending on response to the above plan, consider: TBD Interval History: Overall pain and functional disability since last visit: unchanged New Complaints since last visit:no On 04/25/2024 patient had bilateral medial branch nerve blocks at L3-L4 L4-L5 with greater than 80% relief. Patient states that after he had the procedure done he had to visit his son who was in the hospital he walked all the way to the hospital room all the way back to the parking garage with no pain. That would have never happened currently or before the injection. This is the second in a series of 2 medial branch nerve blocks. Patient stating that both injections have worked well and would like to proceed with the RFA. Current Pain Medications: Neuropathics: NSAIDS: Muscle Relaxants: Topicals: Other Prescription or OTC Pain Medications: Opioids (when applicable): Greenlight Questionnaire GREENLIGHT Completed Date 09/23/2023 Opioid Risk Tool Opiod Risk Tool Date Completed 09/23/2023 Comments 0 MOHINDER-7 Anxiety Score 0 Completed Date 09/23/2023 PHQ9P Score 0 Completed Date 09/23/2023 Anti-depressants or Mood-Stabilizers: None Anti-Coagulants: Plavix Therapies Attended (Current or Most Recent): 12 sessions PT 09/23/2023 AG SPINE COMBINATION Questionnaire GREENLIGHT Completed Date 09/23/2023 Questionnaire Opiod Risk Tool Completed Date 09/23/2023 Comments 0 No question data found. (All drug screens are appropriate unless indicated otherwise) Notable Events During Course of Treatment: 09/22/2023 - Initial HPI (Obtained by Bertha Schumacher CNP). DURATION AND ONSET: The pain complaint has been present for approximately 9 months. The pain had a sudden onset. The mechanism of injury is unknown. RED FLAG SYMPTOMS: denies red flags. PAIN DESCRIPTION: Timing: Intermittent Character: Burning, Sharp, Stabbing Primary Location: low back Radiation: none Exacerbating factors: Walking, getting up from a seated position Relieving factors: Sitting Interferes with: physical activity and work Patient is here today complaining of low back pain without radicular symptoms. Patient stating that he has had an x-ray of his lumbar spine but no MRI. Patient stating that he has had an injection into his low back, with no relief. Patient states he did not care for the explanation of the next plan of care from this provider and so he is changing pain management. Patient has done recent physical therapy. 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 [facility] 04-26-2024 Nurse Note Order has been placed in the patient's chart with the following parameters for discharge from the physician: Patient is alert and oriented Vitals: Diastolic/Systolic +/- 20mmHg Respirations: 12-18 Pulse: 60-100 SpO2 is greater than or equal to 90% Patient has no nausea or vomiting Patient has no dizziness Pain level is +/- 2 from initial evaluation Dressing, dry and intact with no evidence of bleeding Criteria has been met, patient is okay to be discharged per the physician. Physician has gone in and evaluated the patient. Dressing dry and intact. No drainage noted. The patient denies nausea, numbness, tingling, weakness, shortness of breath, dizziness, or headache. Pain level 0/10. Vital signs within normal limits. Patient denied needing walked out by clinical staff and denied needing a wheelchair. Patient given discharge instructions and sent to transportation via ambulatory method. Patient left in good condition. [facility] 04-26-2024 Nurse Note Order has been placed in the patient's chart with the following parameters for discharge from the physician: Patient is alert and oriented Vitals: Diastolic/Systolic +/- 20mmHg Respirations: 12-18 Pulse: 60-100 SpO2 is greater than or equal to 90% Patient has no nausea or vomiting Patient has no dizziness Pain level is +/- 2 from initial evaluation Dressing, dry and intact with no evidence of bleeding Criteria has been met, patient is okay to be discharged per the physician. Physician has gone in and evaluated the patient. Dressing dry and intact. No drainage noted. The patient denies nausea, numbness, tingling, weakness, shortness of breath, dizziness, or headache. Pain level 0/10. Vital signs within normal limits. Patient denied needing walked out by clinical staff and denied needing a wheelchair. Patient given discharge instructions and sent to transportation via ambulatory method. Patient left in good condition. Procedure to be performed: L3/4 - L4/5 Bilateral Medial Branch Block without steroid Patient was wheeled on stretcher from pre op bay to procedure room and assisted onto the procedure tablePatient s procedure was performed in an [facility] Procedure room. Pause completed at each level by provider to verify correct level and laterality placement Pressure was applied to patient s injection site(s) and bleeding was minimal. Patient had no complaint of shortness of breath, dizziness, headache, numbness, tingling, weakness or complications from procedure. Patient was assisted from the procedure table onto the stretcher and wheeled into a post op bay. Patient was advised a clinician will be to obtain another set of vitals. Time Out: 804 Confirmed patient name, date of , procedure site, laterality, and allergies Procedure Start: 807 Procedure End: 817 Vascular Radiologist's Name: Mehreen Are you on a blood thinner: Plavix If yes, is a hold required: No Last dose of blood thinner: 04/26/24 INR Result today: no Do you require a Lovenox bridge:no Are you a diabetic:no Are you/or could you be : no Are you taking Xanax for the procedure: no Are you currently on a steroid? Prednisone . X5 days Are you currently on an antibiotic: no documented in this encounter [facility] 04-26-2024 Instructions Greta Guillen LPN - 04/26/2024 8:09 AM EDT PROCEDURE DISCHARGE INSTRUCTIONS 04/26/2024 Elis Bills 1960 Physician: Everton Decker MD Procedure: Facet Joint Injection/Medial Branch Block Post Procedure Instructions: If sedation not given, no driving for 3 hours after the procedure., Perform activities that typically make you have pain and monitor your pain level during these activities for the next 3-4 hours., Apply cold compresses to injection site if needed., If medically acceptable, take over the counter anti-inflammatories such as ibuprofen or Aleve if needed for post procedure discomfort., No hot baths, hot tubs or hot compresses for 24 hours., and Increased pain the day after the procedure may occur. If you have any of the following signs or symptoms, please call our office at Fever and/or chills Swelling and/or drainage from injection site New pain that is different than your normal pain (other than soreness at the site of the procedure) Stiff neck Shortness of breath Severe increase in pain Motor dysfunctions, such as difficulty walking, bowel or bladder dysfunction and/or incontinence Headache that is severe, light sensitive or develops when changing positions (positional headache) Nausea and/or vomiting accompanied by headache that started 24-48 hours after the procedure If you have any emergent concerns, please call 911 or go to your local emergency room. Please also contact our office to let us know you will be seeking emergency care and why. documented in this encounter [facility] 04-26-2024 Note HNO ID: [id number] Author: EVERTON DECKER MD Service: ? Author Type: Physician Type: Progress Notes Filed: 04/26/2024 08:51 Note Text: [facility] Date: 04/26/2024 Patient name: Elis Bills Physician performing procedure: Everton Decker M.D., M.B.A. PROCEDURE: Medial Branch Block (Diagnostic only, NO STEROIDS) under fluoroscopic guidance BILATERAL SIDES at L3-4 and L4-5 COMMENTS: This was his second Medial branch block. First one was in November. Suggested he keep the appointment on 05/10 until he sees the ROMÁN for evaluation. If going with one-sided RFA, could use that appointment slot (pain has been primarily one-sided, so may do sequential RFA - side of pain first). DIAGNOSIS: (M47.816) Lumbar spondylosis (primary encounter diagnosis) INJECTATE: A total of 6 ml volume was injected The injectate consisted of: 6 ml of 0.75% Bupivacaine, . Each site received equal volumes of this injectate. Improvement after today's procedure: as per nursing report HPI: Elis Bills is an 64 year old MALE who presents today, in pain, for the procedure noted above. Review of Systems: Pertinent Positives: MSK: pain in the region being treated Neuro: weakness or numbness in the region being treated (unless otherwise noted) Skin: Negative (No itching) Eyes: Negative (No blurred or double vision) Respiratory: Negative (No Cough, Aduhawwof-hw-gvtrda, Dyspnea on exertion, wheezing) Cardiovascular: Negative (No Chest Pain, Tightness, Pressure, Palpitations) Gastrointestinal: Negative (No Abdominal pain, Nausea, Vomiting, Constipation, Diarrhea) Genitourinary: Negative (No dysuria) Hematologic: Negative (No bleeding, bruising) OB: is Denied or Not Applicable Endocrine: Negative (No hot/cold intolerance) Psychiatric: Negative (No depression, anxiety or suicidal ideation) PAST MEDICAL HISTORY Diagnosis Date COPD (chronic obstructive pulmonary disease) (HCC) Hypercholesteremia Stroke (HCC) History reviewed. No pertinent surgical history. FAMILY HISTORY Problem Relation Age of Onset No Known Problems Mother Leukemia Father Social History Tobacco Use Smoking status: Former Current packs/day: 0.50 Types: Cigarettes Smokeless tobacco: Never Tobacco comments: Quit smoking a week or so ago (04/06/24) Vaping Use Vaping status: Never Used Substance Use Topics Alcohol use: Yes Comment: 6 pack a day Drug use: Never Current Outpatient Medications on File Prior to Visit Medication Sig cyclobenzaprine (FLEXERIL) 10 mg tablet Take 1 tablet by mouth three times a day as needed. albuterol HFA (PROVENTIL HFA, VENTOLIN HFA) 90 mcg/actuation inhaler Inhale 2 Puffs as instructed every 4 hours as needed for wheezing/shortness of breath. albuterol (PROVENTIL) 2.5 mg /3 mL (0.083 %) nebulizer solution Use 3 mL via nebulizer every 4 hours as needed for wheezing/shortness of breath. Inhale over 5-15 minutes atorvastatin (LIPITOR) 80 mg tablet Take 80 mg by mouth once daily. montelukast (SINGULAIR) 10 mg tablet Take 1 tablet by mouth daily at bedtime. budesonide (PULMICORT) 0.5 mg/2 mL nebulizer solution Use 2 mL via nebulizer two times a day. lisinopril 2.5 mg tablet Take 2.5 mg by mouth once daily. clopidogrel (PLAVIX) 75 mg tablet Take 75 mg by mouth once daily. OMEPRAZOLE (PRILOSEC ORAL) Take 10 mg by mouth as needed. Unsure of dose nicotine polacrilex (NICORETTE) 4 mg gum Take 1 Each by mouth as needed. (Patient not taking: Reported on 04/26/2024) No current facility-administered medications on file prior to visit. Objective Exam: Vitals: As per nursing documentation Constitutional: Normal Appearance, Oriented to Time, Place and Person Head: No lacerations, no external signs of trauma Eyes: Conjunctiva clear. No discharge from the eyes Cardiovascular: Appears well-perfused Pulmonary: Non-labored respirations Abdominal: Non-distended Skin: No visible rashes or ecchymosis Psychiatric: Mood appropriate for given condition Neurological: Gross movements are limited by pain, but otherwise unremarkable Data Reviewed: Nursing note and vitals reviewed. Additional imaging reviewed as appropriate Assessment and Plan: As noted above [place] protocol documentation / Pre-Procedure Checklist: Consent: Obtained in writing prior to procedure I had a nice discussion with the patient today about their current pain and the pathology that could be causing it We discussed different treatment options, including risks, benefits and alternatives. We agreed to proceed as previously discussed, or the plan was modified in accordance with the comments noted above Unless stated otherwise in the procedure note, the risks include but are not limited to infection, allergic reaction, increased pain, lack of therapeutic benefit, steroid reaction, nerve damage, paralysis, stroke, epidural hemat (more content not included)... [facility] 04-26-2024 History of Present illness Narrative [facility] Date: 04/26/2024 Patient name: Elis Bills Physician performing procedure: Everton Decker M.D., M.B.A. PROCEDURE: Medial Branch Block (Diagnostic only, NO STEROIDS) under fluoroscopic guidance BILATERAL SIDES at L3-4 and L4-5 COMMENTS: This was his second Medial branch block. First one was in November. Suggested he keep the appointment on 05/10 until he sees the ORMÁN for evaluation. If going with one-sided RFA, could use that appointment slot (pain has been primarily one-sided, so may do sequential RFA - side of pain first). DIAGNOSIS: (M47.816) Lumbar spondylosis (primary encounter diagnosis) INJECTATE: A total of 6 ml volume was injected The injectate consisted of: 6 ml of 0.75% Bupivacaine, . Each site received equal volumes of this injectate. Improvement after today's procedure: as per nursing report HPI: Elis Bills is an 64 year old MALE who presents today, in pain, for the procedure noted above. Review of Systems: Pertinent Positives: MSK: pain in the region being treated Neuro: weakness or numbness in the region being treated (unless otherwise noted) Skin: Negative (No itching) Eyes: Negative (No blurred or double vision) Respiratory: Negative (No Cough, Jqunpwykv-gj-dtqzzi, Dyspnea on exertion, wheezing) Cardiovascular: Negative (No Chest Pain, Tightness, Pressure, Palpitations) Gastrointestinal: Negative (No Abdominal pain, Nausea, Vomiting, Constipation, Diarrhea) Genitourinary: Negative (No dysuria) Hematologic: Negative (No bleeding, bruising) OB: is Denied or Not Applicable Endocrine: Negative (No hot/cold intolerance) Psychiatric: Negative (No depression, anxiety or suicidal ideation) PAST MEDICAL HISTORY Diagnosis Date COPD (chronic obstructive pulmonary disease) (HCC) Hypercholesteremia Stroke (HCC) History reviewed. No pertinent surgical history. FAMILY HISTORY Problem Relation Age of Onset No Known Problems Mother Leukemia Father Social History Tobacco Use Smoking status: Former Current packs/day: 0.50 Types: Cigarettes Smokeless tobacco: Never Tobacco comments: Quit smoking a week or so ago (04/06/24) Vaping Use Vaping status: Never Used Substance Use Topics Alcohol use: Yes Comment: 6 pack a day Drug use: Never Current Outpatient Medications on File Prior to Visit Medication Sig cyclobenzaprine (FLEXERIL) 10 mg tablet Take 1 tablet by mouth three times a day as needed. albuterol HFA (PROVENTIL HFA, VENTOLIN HFA) 90 mcg/actuation inhaler Inhale 2 Puffs as instructed every 4 hours as needed for wheezing/shortness of breath. albuterol (PROVENTIL) 2.5 mg /3 mL (0.083 %) nebulizer solution Use 3 mL via nebulizer every 4 hours as needed for wheezing/shortness of breath. Inhale over 5-15 minutes atorvastatin (LIPITOR) 80 mg tablet Take 80 mg by mouth once daily. montelukast (SINGULAIR) 10 mg tablet Take 1 tablet by mouth daily at bedtime. budesonide (PULMICORT) 0.5 mg/2 mL nebulizer solution Use 2 mL via nebulizer two times a day. lisinopril 2.5 mg tablet Take 2.5 mg by mouth once daily. clopidogrel (PLAVIX) 75 mg tablet Take 75 mg by mouth once daily. OMEPRAZOLE (PRILOSEC ORAL) Take 10 mg by mouth as needed. Unsure of dose nicotine polacrilex (NICORETTE) 4 mg gum Take 1 Each by mouth as needed. (Patient not taking: Reported on 04/26/2024) No current facility-administered medications on file prior to visit. Objective Exam: Vitals: As per nursing documentation Constitutional: Normal Appearance, Oriented to Time, Place and Person Head: No lacerations, no external signs of trauma Eyes: Conjunctiva clear. No discharge from the eyes Cardiovascular: Appears well-perfused Pulmonary: Non-labored respirations Abdominal: Non-distended Skin: No visible rashes or ecchymosis Psychiatric: Mood appropriate for given condition Neurological: Gross movements are limited by pain, but otherwise unremarkable Data Reviewed: Nursing note and vitals reviewed. Additional imaging reviewed as appropriate Assessment and Plan: As noted above [place] protocol documentation / Pre-Procedure Checklist: Consent: Obtained in writing prior to procedure I had a nice discussion with the patient today about their current pain and the pathology that could be causing it We discussed different treatment options, including risks, benefits and alternatives. We agreed to proceed as previously discussed, or the plan was modified in accordance with the comments noted above Unless stated otherwise in the procedure note, the risks include but are not limited to infection, allergic reaction, increased pain, lack of therapeutic benefit, steroid reaction, nerve damage, paralysis, stroke, epidural hematoma, syncope, headache, respiratory or cardiac arrest, pneumothorax, and scar formation Once the plan was agreed upon, the patient gave written consent to proceed and was transported into the procedure room Surgical/Procedure pause or Time Out : Time Out was led by the physician in the procedure room, with the patient and all staff present and participating The following information was verified during the Time Out process: Patient name, patient date of , procedure site (marked), laterality, anticoagulants and allergies Procedure: The patient was prepped and draped in a sterile fashion in the prone position after informed consent was signed and all patient questions were answered including the risks, benefits, alternative treatment options, and prognosis. The risks are as mentioned above, with the exception of Pneumothorax. To block the L5 dorsal rami (when applicable), a spinal needle of the same dimensions as mentioned below was positioned at the junction of the superior articular process of the sacrum and the ala under biplanar fluoroscopic control. A 22 gauge, 5 inch spinal needle was inserted a few centimeters lateral to the pedicles of the remaining lumbar levels mentioned above and advanced ventral and medial through the muscles to the target point. Once the needle contacted periosteum at the superior-most medial edge of the transverse process, the C-arm was obliqued such that the axis of the lumbar facet joints could be fluoroscopically visualized, and the correct position of the needle confirmed. After contact with periosteum and negative aspirate for blood and CSF, correct placement without intravascular or epidural spread was confirmed by injecting 0.2cc of Omnipaque 300. A spot radiograph was obtained of this image. Next, a 0.5cc volume of the injectate noted above was placed. A needle was similarly directed to the other facet joint nerves mentioned above, with completion of the procedure at each level as described above. Please see the nursing note for exact times (time out, procedure start, procedure end). After careful removal of the needle, there was minimal bleeding. The injection site was covered with appropriate sterile dressing. The patient was noted to have tolerated the procedure well and was discharged after an appropriate period of post-procedure observation. The patient was instructed to contact us if there were any complications. The patient was advised to follow-up with the requesting physician within one to two weeks or as per their requested follow-up plan. Post procedure visit summary with written instructions was offered to the patient. Everton ROGERSA [facility] Review of Systems Constitutional: Positive for activity change. Negative for chills, fever and unexpected weight change. Genitourinary: Negative for difficulty urinating. Musculoskeletal: Positive for arthralgias, back pain and gait problem. Negative for joint swelling, myalgias, neck pain and neck stiffness. Neurological: Negative for weakness, numbness and headaches. Psychiatric/Behavioral: Negative for dysphoric mood, sleep disturbance and suicidal ideas. The patient is not nervous/anxious. documented in this encounter [facility] 04-26-2024 Nurse Note Procedure to be performed: L3/4 - L4/5 Bilateral Medial Branch Block without steroid Patient was wheeled on stretcher from pre op bay to procedure room and assisted onto the procedure tablePatient s procedure was performed in an [facility] Procedure room. Pause completed at each level by provider to verify correct level and laterality placement Pressure was applied to patient s injection site(s) and bleeding was minimal. Patient had no complaint of shortness of breath, dizziness, headache, numbness, tingling, weakness or complications from procedure. Patient was assisted from the procedure table onto the stretcher and wheeled into a post op bay. Patient was advised a clinician will be to obtain another set of vitals. Time Out: 804 Confirmed patient name, date of , procedure site, laterality, and allergies Procedure Start: 807 Procedure End: 817 [facility] 04-26-2024 Note HNO ID: [id number] Author: GRETA GUILLEN LPN Service: ? Author Type: LICENSED NURSE Type: Progress Notes Filed: 04/26/2024 08:51 Note Text: Review of Systems Constitutional: Positive for activity change. Negative for chills, fever and unexpected weight change. Genitourinary: Negative for difficulty urinating. Musculoskeletal: Positive for arthralgias, back pain and gait problem. Negative for joint swelling, myalgias, neck pain and neck stiffness. Neurological: Negative for weakness, numbness and headaches. Psychiatric/Behavioral: Negative for dysphoric mood, sleep disturbance and suicidal ideas. The patient is not nervous/anxious. [facility] 04-26-2024 Nurse Note Vascular Radiologist's Name: Mehreen Are you on a blood thinner: Plavix If yes, is a hold required: No Last dose of blood thinner: 04/26/24 INR Result today: no Do you require a Lovenox bridge:no Are you a diabetic:no Are you/or could you be : no Are you taking Xanax for the procedure: no Are you currently on a steroid? Prednisone . X5 days Are you currently on an antibiotic: no T [facility] 04-06-2024 History of Present illness Narrative Images from the original note were not included. NEUROSURGERY CONSULT NOTE Lois Kee MD [facility] Date of visit: April 06, 2024 Patient Name: Mr.Donald Tim Bills Date of : 1960 Current Age: [age] year old Sex: male MRN/E# [id number] Last Office Visit: Visit date not found Chief Complaint: Patient presents with: New Patient Past Medical/Surgical History: Elis Bills is a 63 year old male who is referred by Bertha Schumacher APRN, CNP with pain management for neurosurgical evaluation. The patient has a history of COPD, hypercholesterolemia, stroke. Smoking: + 0.5 PPD. Alcohol Use: + 6 pack a day HISTORY OF PRESENT ILLNESS : The patient presents to the office today as a new patient for evaluation of his lumbar spine. He states he has had a year history of right sided low back pain. He denies any pain into the legs. He follows with pain management and has received multiple injections. He states that sitting, leaning forward at the waist help to relieve some of the pain. He will occasionally take extra strength tylenol. He takes Plavix daily for history of stroke. He received 5 days of relief with the last injection he received. He denies paresthesia, falls, bowel/bladder dysfunction. He is here for image review, evaluation and plan of care. Symptoms: right low back pain PREVIOUS CONSERVATIVE TREATMENTS: Pain management - Spine and Pain Injection - 10/28/2023 - bilateral L4-5 and L5-S1 MBB - no relief - 12/16/2023 - bilateral L3-4 and L4-5 MBB - unsure - 03/16/2024 - midline L4-5 ILESI - 5 days Flexeril PREVIOUS SURGERY: None Surgical Risk Factors: Smoking status: + 0.5 PPD - quitting - +nicotine gum and candy Anticoagulants/antiplatelets: +PLAVIX 75mg daily Diabetic: denies BMI: 44.37 PAIN EVALUATION 04/05/2024 1522 Pain Level: 10 Pain Location: Back-Lower Description: Sharp;Shooting;Spasm;Stabbing;St iffness Duration Amount of Time: 10 Duration Units: Minutes Frequency: Continuous Intervention/Comfort measure: Medication;Reposition;Relaxation ;Exercise;Massage Comments: Bent over while standing due to pain cannot walk far PAST MEDICAL HISTORY Diagnosis Date COPD (chronic obstructive pulmonary disease) (HCC) Hypercholesteremia Stroke (HCC) No past surgical history on file. FAMILY HISTORY Problem Relation Age of Onset No Known Problems Mother Leukemia Father ALLERGIES Allergen Reactions Penicillins Unknown Current Outpatient Medications Medication Sig Dispense Refill cyclobenzaprine (FLEXERIL) 10 mg tablet Take 1 tablet by mouth three times a day as needed. 90 tablet 2 nicotine polacrilex (NICORETTE) 4 mg gum Take 1 Each by mouth as needed. 300 Each 3 albuterol HFA (PROVENTIL HFA, VENTOLIN HFA) 90 mcg/actuation inhaler Inhale 2 Puffs as instructed every 4 hours as needed for wheezing/shortness of breath. 3 Each 3 albuterol (PROVENTIL) 2.5 mg /3 mL (0.083 %) nebulizer solution Use 3 mL via nebulizer every 4 hours as needed for wheezing/shortness of breath. Inhale over 5-15 minutes atorvastatin (LIPITOR) 80 mg tablet Take 80 mg by mouth once daily. montelukast (SINGULAIR) 10 mg tablet Take 1 tablet by mouth daily at bedtime. 90 tablet 3 budesonide (PULMICORT) 0.5 mg/2 mL nebulizer solution Use 2 mL via nebulizer two times a day. 360 mL 3 lisinopril 2.5 mg tablet Take 2.5 mg by mouth once daily. clopidogrel (PLAVIX) 75 mg tablet Take 75 mg by mouth once daily. OMEPRAZOLE (PRILOSEC ORAL) Take 10 mg by mouth as needed. Unsure of dose No current facility-administered medications for this visit. REVIEW OF SYSTEMS Review of Systems Constitutional: Negative for chills, fatigue and fever. HENT: Negative for ear pain, hearing loss and tinnitus. Eyes: Negative for photophobia, pain and visual disturbance. Respiratory: Negative for shortness of breath. Cardiovascular: Negative for chest pain. Gastrointestinal: Negative for constipation, diarrhea, nausea and vomiting. Endocrine: Negative for polydipsia, polyphagia and polyuria. Genitourinary: Negative for difficulty urinating, frequency and urgency. Musculoskeletal: Positive for back pain. Negative for gait problem, neck pain and neck stiffness. Skin: Negative for color change. Neurological: Negative for dizziness, weakness, light-headedness and numbness. Psychiatric/Behavioral: Negative for agitation and confusion. The patient is not nervous/anxious. OBJECTIVE: BP 154/89 Pulse 74 Resp 18 Ht 5' 7 (1.70m) Wt 283 lb 4.7 oz (128.5kg) SpO2 98% BMI 44.36 kg/(m^2). PHYSICAL EXAM: Mental State : Alert, memory function unremarkable. Attention span and concentration normal for patient's age. Speech normal, no receptive or expressive speech deficit. Recent and remote memory normal. Orientation : Oriented to person, place and time. Cranial Nerves : Grossly intact. Sensory: Normal Sensation in upper and lower extremities and trunk to touch and noxious stimuli. Motor: Normal muscle tone and bulk. No tremor or uncontrollable movements. No spasticity or tremor. Gait and Station: Casual gait is normal including stance, stride, and arm swing. STRENGTH: Upper Extremity Strength Exam Right Left Elbow Flexion 5/5 5/5 Elbow Extension 5/5 5/5 Finger Flexion 5/5 5/5 Finger Extension 5/5 5/5 Finger Abduction 5/5 5/5 Lower Extremity Strength Exam Right Left Hip Flexion 5/5 5/5 Knee Flexion 5/5 5/5 Knee Extension 5/5 5/5 Dorsiflexion 5/5 5/5 Plantarflexion 5/5 5/5 Reflexes Right Left Biceps C5-C6 +1 +1 Triceps C7-C8 +1 +1 Wrist C5-6 +1 +1 Patellar L3-4 +0 +0 Achilles L5-S1 +0 +0 Pathologic Reflexes Right Left Serra's Negative Negative Clonus Negative Negative Data Review IMAGING STUDIES: XR lumbar: not obtained prior to this visit MRI lumbar spine 11/19/2023 IMPRESSION: Subacute compression fracture deformity of the L1 ventral superior endplate with approximately 20% height loss and moderate generalized edema, but no convincing underlying pathologic marrow replacement. Diffuse lumbar epidural lipomatous hypertrophy with superimposed degenerative changes with resultant thecal sac narrowing being most pronounced and severe at L2-L3 and L3-L4. Neuroforaminal stenosis most pronounced and moderate in severity on the right at L5-S1. 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 Assessment & Plan: Mr. Bills presents for evaluation of right-sided low back pain that has been ongoing for the last year. It worsens with standing and activity, and is relieved by sitting down and by rest. She describes pain focally in his right paraspinal muscles above his iliac crest. He denies any lower extremity symptoms. He has tried physical therapy in the past with minimal relief. He has tried several epidural injections with perhaps temporary relief. He is considering a facet ablation soon, but is waiting for insurance approval. He is full strength on exam. I reviewed his MRI with him and his . He has some STIR signal within his L1 vertebral body which likely represents a compression fracture. This MRI is from 4 to 5 months ago, this fracture is likely healed. I will check x-rays next time I see him to ensure that it has healed. He has a significant amount of epidural lipomatosis, causing severe stenosis at L2-3 and L3-4. He also has retrolisthesis of L4 over L5, and likely pars defects at this level. I will check flexion-extension x-rays next time I see him to evaluate for any instability. I am hesitant to recommend surgery for his stenosis given that his symptoms are only focal back pain. I explained that stenosis like this would likely manifest as lower extremity symptoms, which he has none. Further, he is very high risk for any surgery given his body habitus, Plavix use, smoking history, alcohol use, and COPD. I recommended trying the ablation first to see if he gets meaningful relief, as I am not sure that surgery would help him. I will see him back in a couple of months with flexion-extension x-rays to assess his progress. I also strongly encouraged him to quit all tobacco use, not only for his overall health, but should he need an instrumented procedure in the future. All questions were answered. Attribution: The following portions of the patient's history were reviewed, confirmed, and updated as necessary: allergies, current medications, past family history, past medical history, past social history, past surgical history, problem list, HPI, and ROS obtained by others. Some elements may be copied from a previous office note and have been reviewed/updated where appropriate. All portions reflect current medical decision making from today. The clinical and radiographic findings as well as the risks, benefits and alternatives of treatment have been reviewed in detail with the patient. Advised to call the office if symptoms worsen or new symptoms develop. Patient expressed understanding and is in agreement with plan. Lois Kee MD [facility] Medical Decision Making: Problems: Moderate: New problem with uncertain prognosis Data: Unique source(s) for external note(s) reviewed: 1 Unique test result(s) reviewed: 1 Unique test(s) ordered: 1 Risk: Moderate: Moderate risk from testing/treatment Medical Decision Making Level: 4 - Moderate This note was partially generated using [employer] voice recognition system, and there may be some incorrect words, spellings, and punctuation that were not noted in checking the note before saving. documented in this encounter [facility] 04-06-2024 Note HNO ID: [id number] Author: LOIS KEE MD Service: ? Author Type: Physician Type: Progress Notes Filed: 04/06/2024 10:06 Note Text: NEUROSURGERY CONSULT NOTE Lois Kee MD [facility] Date of visit: April 06, 2024 Patient Name: Mr.Donald Tim Bills Date of : 1960 Current Age: [age] year old Sex: male MRN/E# [id number] Last Office Visit: Visit date not found Chief Complaint: Patient presents with: New Patient Past Medical/Surgical History: Elis Bills is a 63 year old male who is referred by Bertha Schumacher APRN, CNP with pain management for neurosurgical evaluation. The patient has a history of COPD, hypercholesterolemia, stroke. Smoking: + 0.5 PPD. Alcohol Use: + 6 pack a day HISTORY OF PRESENT ILLNESS : The patient presents to the office today as a new patient for evaluation of his lumbar spine. He states he has had a year history of right sided low back pain. He denies any pain into the legs. He follows with pain management and has received multiple injections. He states that sitting, leaning forward at the waist help to relieve some of the pain. He will occasionally take extra strength tylenol. He takes Plavix daily for history of stroke. He received 5 days of relief with the last injection he received. He denies paresthesia, falls, bowel/bladder dysfunction. He is here for image review, evaluation and plan of care. Symptoms: right low back pain PREVIOUS CONSERVATIVE TREATMENTS: Pain management - Spine and Pain Injection - 10/28/2023 - bilateral L4-5 and L5-S1 MBB - no relief - 12/16/2023 - bilateral L3-4 and L4-5 MBB - unsure - 03/16/2024 - midline L4-5 ILESI - 5 days Flexeril PREVIOUS SURGERY: None Surgical Risk Factors: Smoking status: + 0.5 PPD - quitting - +nicotine gum and candy Anticoagulants/antiplatelets: +PLAVIX 75mg daily Diabetic: denies BMI: 44.37 PAIN EVALUATION 04/05/2024 1522 Pain Level: 10 Pain Location: Back-Lower Description: Sharp;Shooting;Spasm;Stabbing;St iffness Duration Amount of Time: 10 Duration Units: Minutes Frequency: Continuous Intervention/Comfort measure: Medication;Reposition;Relaxation ;Exercise;Massage Comments: Bent over while standing due to pain cannot walk far PAST MEDICAL HISTORY Diagnosis Date COPD (chronic obstructive pulmonary disease) (HCC) Hypercholesteremia Stroke ([facility]) No past surgical history on file. FAMILY HISTORY Problem Relation Age of Onset No Known Problems Mother Leukemia Father ALLERGIES Allergen Reactions Penicillins Unknown Current Outpatient Medications Medication Sig Dispense Refill cyclobenzaprine (FLEXERIL) 10 mg tablet Take 1 tablet by mouth three times a day as needed. 90 tablet 2 nicotine polacrilex (NICORETTE) 4 mg gum Take 1 Each by mouth as needed. 300 Each 3 albuterol HFA (PROVENTIL HFA, VENTOLIN HFA) 90 mcg/actuation inhaler Inhale 2 Puffs as instructed every 4 hours as needed for wheezing/shortness of breath. 3 Each 3 albuterol (PROVENTIL) 2.5 mg /3 mL (0.083 %) nebulizer solution Use 3 mL via nebulizer every 4 hours as needed for wheezing/shortness of breath. Inhale over 5-15 minutes atorvastatin (LIPITOR) 80 mg tablet Take 80 mg by mouth once daily. montelukast (SINGULAIR) 10 mg tablet Take 1 tablet by mouth daily at bedtime. 90 tablet 3 budesonide (PULMICORT) 0.5 mg/2 mL nebulizer solution Use 2 mL via nebulizer two times a day. 360 mL 3 lisinopril 2.5 mg tablet Take 2.5 mg by mouth once daily. clopidogrel (PLAVIX) 75 mg tablet Take 75 mg by mouth once daily. OMEPRAZOLE (PRILOSEC ORAL) Take 10 mg by mouth as needed. Unsure of dose No current facility-administered medications for this visit. REVIEW OF SYSTEMS Review of Systems Constitutional: Negative for chills, fatigue and fever. HENT: Negative for ear pain, hearing loss and tinnitus. Eyes: Negative for photophobia, pain and visual disturbance. Respiratory: Negative for shortness of breath. Cardiovascular: Negative for chest pain. Gastrointestinal: Negative for constipation, diarrhea, nausea and vomiting. Endocrine: Negative for polydipsia, polyphagia and polyuria. Genitourinary: Negative for difficulty urinating, frequency and urgency. Musculoskeletal: Positive for back pain. Negative for gait problem, neck pain and neck stiffness. Skin: Negative for color change. Neurological: Negative for dizziness, weakness, light-headedness and numbness. Psychiatric/Behavioral: Negative for agitation and confusion. The patient is not nervous/anxious. OBJECTIVE: BP 154/89 Pulse 74 Resp 18 Ht 5' 7 (1.70m) Wt 283 lb 4.7 oz (128.5kg) SpO2 98% BMI 44.36 kg/(m2). PHYSICAL EXAM: Mental State : Alert, memory function unremarkable. Attention span and concentration normal for patient's age. Speech normal, no receptive or expressive speech deficit. Recent and remote memory normal. Orientation : Oriented to person, place and ti (more content not included)... [facility] 03-31-2024 Telephone encounter Note Procedure(s) being scheduled: 1.Are you diabetic No 2. Are you on any blood thinners? Yes. Please list the current medications being prescribed plavix. If yes, does it require a hold? No If yes, was approval letter sent? No 3. Are you taking any aspirin? No 4. Are you currently taking any antibiotics? No If yes, is it prophylactic or for treatment of an infection? NA 5. Do you have any allergies to latex? No 6. Do you have any allergies to seafood or shellfish? No 7. Do you have any allergies to x-ray dye? No 8. Did the physician instruct you to take any medication prior to your procedure? No 9. Does this procedure require a charter coach driver? Yes If yes, has patient been notified that a charter coach driver is needed and must be present at check in? yes 10. Were the pre-procedure instructions explained and provided to the patient? Yes 11. Do you have a pacemaker? No 12. Do you have an internal stimulator of any kind? No If yes, please bring the remote with you to your procedure visit. 13. Have you received the COVID-19 Vaccine? No. If yes, date(s) received: na (Patient should not receive a procedure including steroids 14 days prior to their first dose of the COVID vaccine. They should not receive any procedure containing steroids in the time frame between their 1st and 2nd doses of the COVID vaccine. They should not receive a procedure containing steroids 14 days after their 2nd dose of the COVID vaccine.) [facility] 03-31-2024 Miscellaneous Notes Procedure(s) being scheduled: 1.Are you diabetic No 2. Are you on any blood thinners? Yes. Please list the current medications being prescribed plavix. If yes, does it require a hold? No If yes, was approval letter sent? No 3. Are you taking any aspirin? No 4. Are you currently taking any antibiotics? No If yes, is it prophylactic or for treatment of an infection? NA 5. Do you have any allergies to latex? No 6. Do you have any allergies to seafood or shellfish? No 7. Do you have any allergies to x-ray dye? No 8. Did the physician instruct you to take any medication prior to your procedure? No 9. Does this procedure require a charter coach driver? Yes If yes, has patient been notified that a charter coach driver is needed and must be present at check in? yes 10. Were the pre-procedure instructions explained and provided to the patient? Yes 11. Do you have a pacemaker? No 12. Do you have an internal stimulator of any kind? No If yes, please bring the remote with you to your procedure visit. 13. Have you received the COVID-19 Vaccine? No. If yes, date(s) received: na (Patient should not receive a procedure including steroids 14 days prior to their first dose of the COVID vaccine. They should not receive any procedure containing steroids in the time frame between their 1st and 2nd doses of the COVID vaccine. They should not receive a procedure containing steroids 14 days after their 2nd dose of the COVID vaccine.) documented in this encounter [facility] 03-30-2024 Telephone encounter Note Medial Branch Block (Diagnostic only, NO STEROIDS) under fluoroscopic guidance BILATERAL SIDES at L3-4 and L4-5 Called pt to schedule procedure, LVChip Rubalcava [facility] 03-30-2024 Miscellaneous Notes Medial Branch Block (Diagnostic only, NO STEROIDS) under fluoroscopic guidance BILATERAL SIDES at L3-4 and L4-5 Called pt to schedule procedure, DICK Rubalcava documented in this encounter [facility] 03-30-2024 Instructions Bertha Schumacher APRN.CNP - 03/30/2024 2:44 PM EDT Ice and heat as tolerated Activity as tolerated documented in this encounter [facility] 03-30-2024 History of Present illness Narrative Images from the original note were not included. VIRTUAL VISIT PROGRESS NOTE This is a virtual visit using Audio only It required patient-provider interaction for the medical decision making as documented below. I have communicated my name and active licensure. The patient's identity and physical location were verified at the time of this visit. Either the patient or their legal ict sales representative has been informed of the risks and benefits of -- and alternatives to -- treatment through a remote evaluation and consents to proceed with the evaluation remotely. [facility] Today's Date: 03/30/2024 Name: Elis Bills : 1960 Purpose: Follow-up Patient Evaluation - This is an established patient, returning today for continued evaluation and management of the chief complaint noted below (Telemedicine) Chief complaint: low back pain Referring Clinician: Pertinent Past Medical History: COPD, Obesity, HTN, HLD, CVA Pertinent Past Surgeries: B/L THR This is a virtual visit via Zoom, Phone and/or MyChart. It required patient-provider interaction for the medical decision making as documented below. Patient understands that privacy cannot be guaranteed. Note: Examination was limited today due to this being a virtual/telemedicine encounter Plan at last visit: (Seen on 02/24/2024 by Bertha Schumacher CNP) Medications: Requested Prescriptions Signed Prescriptions Disp Refills cyclobenzaprine (FLEXERIL) 10 mg tablet 90 tablet 2 Sig: Take 1 tablet by mouth three times a day as needed. Interventional Procedures: Epidural Steroid Injection - Interlaminar Approach (ILESI) under fluoroscopic guidance NONE at L4-5 Vascular Radiologist Needed: Epidural - YES Anticoagulant - Hold Needed: Lumbar Epidural (HOLD) Anticoagulant - Currently Taking: Plavix (7 days when hold needed) Allergies (relevant): None Scheduling - Mobility (Can Patient independently transfer on/off an OR or Procedure table?): YES (May schedule at any location) Scheduling - Additional Info: None Studies: None Functional Christianity: NONE Referrals: No additional considerations at present Follow-up: 2 weeks after injection Depending on response to the above plan, consider: TBD Interval History: Overall pain and functional disability since last visit: unchanged New Complaints since last visit:no Patient is here for evaluation after having an interlaminar epidural steroid injection done on 03/16/2024. Patient reporting 90% for 4 days. Patient stating he continues to have pain in his low back without radiation. Patient stating it is an aching pain that is increased with standing walking or bending. Patient states that he received excellent relief from the first in a series of 2 medial branch nerve blocks from L3-L4 L4-L5. Patient wants to know what the next step is. Is considering seeing a surgeon or potentially if we can repeat that nerve block again with the goal of RFA. Current Pain Medications: Neuropathics: NSAIDS: Muscle Relaxants: Topicals: Other Prescription or OTC Pain Medications: Opioids (when applicable): Greenlight Questionnaire GREENLIGHT Completed Date 09/23/2023 Opioid Risk Tool Opiod Risk Tool Date Completed 09/23/2023 Comments 0 MOHINDER-7 Anxiety Score 0 Completed Date 09/23/2023 PHQ9P Score 0 Completed Date 09/23/2023 Anti-depressants or Mood-Stabilizers: None Anti-Coagulants: Plavix Therapies Attended (Current or Most Recent): 12 sessions PT 09/23/2023 AG SPINE COMBINATION Questionnaire GREENLIGHT Completed Date 09/23/2023 Questionnaire Opiod Risk Tool Completed Date 09/23/2023 Comments 0 No question data found. (All drug screens are appropriate unless indicated otherwise) Notable Events During Course of Treatment: 09/22/2023 - Initial HPI (Obtained by Bertha Schumacher CNP). DURATION AND ONSET: The pain complaint has been present for approximately 9 months. The pain had a sudden onset. The mechanism of injury is unknown. RED FLAG SYMPTOMS: denies red flags. PAIN DESCRIPTION: Timing: Intermittent Character: Burning, Sharp, Stabbing Primary Location: low back Radiation: none Exacerbating factors: Walking, getting up from a seated position Relieving factors: Sitting Interferes with: physical activity and work Patient is here today complaining of low back pain without radicular symptoms. Patient stating that he has had an x-ray of his lumbar spine but no MRI. Patient stating that he has had an injection into his low back, with no relief. Patient states he did not care for the explanation of the next plan of care from this provider and so he is changing pain management. Patient has done recent physical therapy. 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 States he is fine until he starts walking or moving and then the pain increases. States he is fine at sitting. Patient states he was prescribed tramadol and it is not helping at all with his pain so he stopped use. Patient is also on Plavix and is aware that he cannot take NSAIDs. Patient is here to see what can be done for his back pain as it is interfering with his activities of daily living and his work. Treatment History: PAIN PROCEDURES: DATE PROCEDURE IMPROVEMENT 03/16/2024 ILESI L4-L5 90% for 4 days 12/16/23 MBB BL L3-4 and L4-5. 80% 10/28/2023 MBB B/L L4-S1 No relief MEDICATIONS Taken TO DATE (for the chief complaint(s)): Neuropathics: None NSAIDS: unable to take, on plavix, states he did take in the past with relief. Muscle Relaxants: None Topicals: None Other Prescription or OTC Pain Medications: Tylenol (Acetaminophen) Opioids: Tramadol Data Reviewed Today: Allergies: ALLERGIES Allergen Reactions Penicillins Unknown Social History Tobacco Use Smoking status: Every Day Current packs/day: 0.50 Types: Cigarettes Smokeless tobacco: Never Vaping Use Vaping status: Never Used Substance Use Topics Alcohol use: Yes Comment: 6 pack a day Drug use: Never 03/15/2024 03/30/2024 INTAKE PAIN ASSESSMENT Are you having pain associated with your visit today? Yes, Provider notified Yes, Provider notified Pain Level 10 10 Pain Location Back-Lower Back-Lower Description Burning;Shooting;Stabbing;Throbb ing Sharp;Stabbing;Throbbing Duration Amount of Time 10 10 Duration Units Minutes Minutes Frequency Intermittent Continuous Intervention/Comfort measure Medication;Reposition;Relaxation ;Exercise;Massage;Positioning Medication;Reposition;Relaxation ;Exercise;Massage;Rocking/holdin g;Other: See comment Comments can not stand long and when standing bent over Compliance: PDMP website checked and validated on 03/30/2024 by Bertha Schumacher APRN.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 All prescriptions have been APPROPRIATELY filled. No suspicious activity was identified. Risk Assessment: MOHINDER-7: 09/23/2023 MOHINDER - 7 SCORES Score 0 (0-4) minimal anxiety, (5-9) mild anxiety, (10-14) moderate anxiety, (15-21) severe anxiety PHQ-9: 09/23/2023 PHQ-9 Score 0 (0-4) minimal depression, (5-9) mild depression, (10-14) moderate depression, (15-19) moderately severe depression, (20-27) severe depression Diagnostic Studies: Relevant Imaging: MRI Spine Report MRI LUMBAR SPINE WO IVCON Exam End: 11/19/2023 12:39 PM (Final result) Narrative: * * *Final Report* * * DATE OF EXAM: Nov 19 2023 12:39PM BR [id number] - MRI LUMBAR SPINE WO IVCON / PROCEDURE REASON: Spinal 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 * * * * Physician Interpretation * * * * EXAMINATION: MRI LUMBAR SPINE WO IVCON Clinical history provided by the ordering clinician via order question and clinical decision support entries: Spinal stenosis, spondylolisthesis, radiculopathy, trauma. Spinal stenosis, lumbar. Spinal 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. Stated history: stenosis, fall, lbp, no prev. TECHNIQUE: Routine lumbosacral spine MR protocol without gadolinium. MQ: [id number] COMPARISON: 09/02/[address] RESULT: Counting reference: Lumbosacral junction. For the purposes of this report, L4-5 is considered the level of the iliac crest and assume there are 5 lumbar-type vertebrae. Anatomic variant: None. Alignment: Alignment is anatomic. Bone marrow signal/fracture: Moderate generalized edema throughout the L1 vertebral body associated with a ventral superior endplate predominant compression fracture deformity with approximately 20% ventral loss of vertebral body height. Incidental small vertebral body hemangioma along the dorsal right upper margin of the L2 vertebral body. Type II degenerative endplate changes at L2-L3 most pronounced along the right ventral margin. Mild type I degenerative endplate changes along the dorsal midline and left dorsolateral margin of L3-L4. Chronic nondisplaced right L5 pars defect and questionable integrity of the left L5 pars interarticularis. Conus: Normal in signal and morphology terminating at the level of the mid L1 vertebral body. Soft tissues: The dorsal paraspinal soft tissues are within normal limits. The paravertebral soft tissues are unremarkable. Imaged portions of the intra-abdominal intrapelvic contents demonstrate no significant findings. T11-T12: Canal and foramina are patent. T12-L1: Canal and foramina are patent. L1-L2: Prominent epidural lipomatous tissue mild to moderately effacing the thecal sac, but otherwise no substantial superimposed spinal canal or neuroforaminal stenosis. L2-L3: Prominent epidural lipomatous tissue with superimposed disc bulge and endplate osteophyte formation with resultant severe effacement of the thecal sac. Endplate osteophyte formation and facet arthropathy contributes to no more than mild left and no substantial right foraminal stenosis. L3-L4: Prominent epidural lipomatous tissue with superimposed disc bulge, endplate osteophyte formation, and facet arthropathy contributing to severe effacement of the thecal sac and mild left and no substantial right foraminal stenosis. L4-L5: Prominent epidural lipomatous tissue with disc bulge, endplate osteophyte formation, facet arthropathy contributing to no more than mild thecal sac effacement and no more than mild bilateral foraminal stenosis. L5-S1: Prominent epidural lipomatous tissue in conjunction with disc bulge, endplate osteophyte formation, and facet arthropathy contributing to mild to moderate thecal sac effacement and moderate right and mild left foraminal stenosis. Sacrum and iliac wings: The visualized sacrum and iliac wings are within normal limits. The presacral soft tissues are normal in appearance. Localizer images: Circumscribed subcentimeter T2 hyperintense focus in the posterior right hepatic lobe suggesting a small cyst or hemangioma. Impression: IMPRESSION: Subacute compression fracture deformity of the L1 ventral superior endplate with approximately 20% height loss and moderate generalized edema, but no convincing underlying pathologic marrow replacement. Diffuse lumbar epidural lipomatous hypertrophy with superimposed degenerative changes with resultant thecal sac narrowing being most pronounced and severe at L2-L3 and L3-L4. Neuroforaminal stenosis most pronounced and moderate in severity on the right at L5-S1. 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 Anatomic Thoracic/Lumbar Variant: None. L4-5 is considered the level of the iliac crest and assume there are 5 lumbar-type vertebrae. Package Winder[facility] Transcribe Date/Time: Nov 19 2023 3:30P Dictated by : MECHELLE EDMONDSON MD This examination was interpreted and the report reviewed and electronically signed by: MECHELLE EDMONDSON MD on Nov 19 2023 3:44PM EST Electrodiagnostic Study (EMG): None Recent Labs: Creatinine Date Value Ref Range Status 12/02/2023 0.90 0.73 - 1.22 mg/dL Final No results found for: GFR No results found for: PCGLUCOSE Current Medications, Past Medical History, Past Surgical History, Family History & Social History: Reviewed on today's date. Review of Systems: Reviewed on today's date. Pertinent Positives: MSK - pain in the region being treated Neuro: no weakness or numbness in the region being treated Skin: Negative (No itching) Eyes: Negative (No blurred or double vision) Respiratory: Negative (No Cough, Vmyrrbxvq-ek-mouoys, Dyspnea on exertion, wheezing) Cardiovascular: Negative (No Chest Pain, Tightness, Pressure, Palpitations) Gastrointestinal: Negative (No Abdominal pain, Nausea, Vomiting, Constipation, Diarrhea) Genitourinary: Negative (No dysuria) Hematologic: Negative (No bleeding, bruising) OB: is Denied or Not Applicable Endocrine: Negative (No hot/cold intolerance) Psychiatric: Negative (No depression, anxiety or suicidal ideation) Physical Exam: There were no vitals filed for this visit. VIDEO EXAM: (if completed, performed via video enabled technology) No exam performed Audio only IMPRESSION: 63 year old male presents with complaint(s) of lumbar spondylosis.The patient receiving excellent relief from the transforaminal epidural steroid injection however the relief was short-lived. I did review the MRI with the patient and explained to him I would not want to do another epidural injection at this time due to the results and the epidural lipomatosis. Patient did receive excellent relief from the medial branch nerve block from L3-L4 L4-L5. He had 1 done and we will attempt to repeat that as patient is appears to be suffering from axial pain not radicular symptoms and I would avoid steroids use. Patient is in agreement with this plan. I also want to refer the patient to an neurosurgeon as I feel the patient would benefit at least from a consultation to get their opinion the patient is in agreement with this plan as well. Smoking cessation was discussed at this patient's visit patient stated understanding. Diagnoses: (M47.816) Lumbar spondylosis (primary encounter diagnosis) (M54.16) Lumbar radiculopathy (M48.061) Spinal stenosis, lumbar region, without neurogenic claudication PLAN: Elis Bills would benefit from the following to reach personal goals for decreasing pain, improving function and work participation, and/or improving quality of life: Medications: Requested Prescriptions No prescriptions requested or ordered in this encounter Interventional Procedures: Medial Branch Block (Diagnostic only, NO STEROIDS) under fluoroscopic guidance BILATERAL SIDES at L3-4 and L4-5 Vascular Radiologist Needed: Medial Branch Blocks - YES Anticoagulant - Hold Needed: NO HOLD REQUIRED FOR THIS PROCEDURE Anticoagulant - Currently Taking: None Allergies (relevant): None Scheduling - Mobility (Can Patient independently transfer on/off an OR or Procedure table?): YES (May schedule at any location) Scheduling - Additional Info: None Studies: None Functional Christianity: NONE Referrals: No additional considerations at present Follow-up: Follow up 1-5 days after each procedure as a VV Depending on response to the above plan, consider: TBD Compliance and Clinic Policies Reviewed and/or Discussed Today: None Attribution: In addition to reviewing the information noted above, some elements copied from my most recent clinical note(s), including the physical exam (completed in entirety today), and the impression and plan sections, have been updated where appropriate. All reflect current medical decision making from today's date. I spent a total of 20 minutes on the date of the service which included preparing to see the patient, completing clinical documentation, obtaining and/or reviewing separately obtained history, performing a medically appropriate examination, and counseling and educating the patient/family/caregiver. Bertha Schumacher APRN.CNP Pain Management [facility] documented in this encounter [facility] 03-30-2024 Note HNO ID: [id number] Author: BERTHA SCHUMACHER APRN.CNP Service: ? Author Type: Nurse Practitioner Type: Progress Notes Filed: 03/30/2024 14:44 Note Text: VIRTUAL VISIT PROGRESS NOTE This is a virtual visit using Audio only It required patient-provider interaction for the medical decision making as documented below. I have communicated my name and active licensure. The patient's identity and physical location were verified at the time of this visit. Either the patient or their legal ict sales representative has been informed of the risks and benefits of -- and alternatives to -- treatment through a remote evaluation and consents to proceed with the evaluation remotely. [facility] Today's Date: 03/30/2024 Name: Elis Bills : 1960 Purpose: Follow-up Patient Evaluation - This is an established patient, returning today for continued evaluation and management of the chief complaint noted below (Telemedicine) Chief complaint: low back pain Referring Clinician: Pertinent Past Medical History: COPD, Obesity, HTN, HLD, CVA Pertinent Past Surgeries: B/L THR This is a virtual visit via Zoom, Phone and/or [employer]. It required patient-provider interaction for the medical decision making as documented below. Patient understands that privacy cannot be guaranteed. Note: Examination was limited today due to this being a virtual/telemedicine encounter Plan at last visit: (Seen on 02/24/2024 by Bertha Schumacher CNP) Medications: Requested Prescriptions Signed Prescriptions Disp Refills cyclobenzaprine (FLEXERIL) 10 mg tablet 90 tablet 2 Sig: Take 1 tablet by mouth three times a day as needed. Interventional Procedures: Epidural Steroid Injection - Interlaminar Approach (ILESI) under fluoroscopic guidance NONE at L4-5 Vascular Radiologist Needed: Epidural - YES Anticoagulant - Hold Needed: Lumbar Epidural (HOLD) Anticoagulant - Currently Taking: Plavix (7 days when hold needed) Allergies (relevant): None Scheduling - Mobility (Can Patient independently transfer on/off an OR or Procedure table?): YES (May schedule at any location) Scheduling - Additional Info: None Studies: None Functional Christianity: NONE Referrals: No additional considerations at present Follow-up: 2 weeks after injection Depending on response to the above plan, consider: TBD Interval History: Overall pain and functional disability since last visit: unchanged New Complaints since last visit:no Patient is here for evaluation after having an interlaminar epidural steroid injection done on 03/16/2024. Patient reporting 90% for 4 days. Patient stating he continues to have pain in his low back without radiation. Patient stating it is an aching pain that is increased with standing walking or bending. Patient states that he received excellent relief from the first in a series of 2 medial branch nerve blocks from L3-L4 L4-L5. Patient wants to know what the next step is. Is considering seeing a surgeon or potentially if we can repeat that nerve block again with the goal of RFA. Current Pain Medications: Neuropathics: NSAIDS: Muscle Relaxants: Topicals: Other Prescription or OTC Pain Medications: Opioids (when applicable): Greenlight Questionnaire GREENLIGHT Completed Date 09/23/2023 Opioid Risk Tool Opiod Risk Tool Date Completed 09/23/2023 Comments 0 MOHINDER-7 Anxiety Score 0 Completed Date 09/23/2023 PHQ9P Score 0 Completed Date 09/23/2023 Anti-depressants or Mood-Stabilizers: None Anti-Coagulants: Plavix Therapies Attended (Current or Most Recent): 12 sessions PT 09/23/2023 AG SPINE COMBINATION Questionnaire GREENLIGHT Completed Date 09/23/2023 Questionnaire Opiod Risk Tool Completed Date 09/23/2023 Comments 0 No question data found. (All drug screens are appropriate unless indicated otherwise) Notable Events During Course of Treatment: 09/22/2023 - Initial HPI (Obtained by Bertha Schumacher CNP). DURATION AND ONSET: The pain complaint has been present for approximately 9 months. The pain had a sudden onset. The mechanism of injury is unknown. RED FLAG SYMPTOMS: denies red flags. PAIN DESCRIPTION: Timing: Intermittent Character: Burning, Sharp, Stabbing Primary Location: low back Radiation: none Exacerbating factors: Walking, getting up from a seated position Relieving factors: Sitting Interferes with: physical activity and work Patient is here today complaining of low back pain without radicular symptoms. Patient stating that he has had an x-ray of his lumbar spine but no MRI. Patient stating that he has had an injection into his low back, with no relief. Patient states he did not care for the explanation of the next plan of care from this provider and so he is changing pain manage (more content not included)... [facility] 03-17-2024 Telephone encounter Note Spoke with patient following up from procedure. Patient states they are doing well, no questions or concerns at this time. Stephan Pacheco CMA [facility] 03-17-2024 Miscellaneous Notes Spoke with patient following up from procedure. Patient states they are doing well, no questions or concerns at this time. Stephan Pacheco CMA documented in this encounter [facility] 03-16-2024 History of Present illness Narrative [facility] Date: 03/16/2024 Patient name: Elis Bills Physician performing procedure: Everton Decker M.D., M.B.A. PROCEDURE: Epidural Steroid Injection - Interlaminar Approach (ILESI) under fluoroscopic guidance MIDLINE at L4-5 COMMENTS: He only held Plavix for 6 days (today was day 7). We discussed risks/benefits of delaying vs proceeding (risk of epidural hematoma vs cardiac event). I suggested we try to get him in tomorrow. He elected to proceed today. I advised him to complete the 7 day hold and resume Plavix day after tomorrow. DIAGNOSIS: (M54.16) Lumbar radiculopathy (primary encounter diagnosis) INJECTATE: A total of 6 ml volume was injected The injectate consisted of: 1 ml of Depo-Medrol (40mg/ml), The remainder consisting of Normal Saline Improvement after today's procedure: as per nursing report HPI: Elis Bills is an 63 year old MALE who presents today, in pain, for the procedure noted above. Review of Systems: Pertinent Positives: MSK: pain in the region being treated Neuro: weakness or numbness in the region being treated (unless otherwise noted) Skin: Negative (No itching) Eyes: Negative (No blurred or double vision) Respiratory: Negative (No Cough, Xtergefxq-sw-zixzng, Dyspnea on exertion, wheezing) Cardiovascular: Negative (No Chest Pain, Tightness, Pressure, Palpitations) Gastrointestinal: Negative (No Abdominal pain, Nausea, Vomiting, Constipation, Diarrhea) Genitourinary: Negative (No dysuria) Hematologic: Negative (No bleeding, bruising) OB: is Denied or Not Applicable Endocrine: Negative (No hot/cold intolerance) Psychiatric: Negative (No depression, anxiety or suicidal ideation) PAST MEDICAL HISTORY No date: COPD (chronic obstructive pulmonary disease) ([facility]) No date: Hypercholesteremia No date: Stroke ([facility]) No past surgical history on file. FAMILY HISTORY Problem Relation Age of Onset No Known Problems Mother Leukemia Father Social History Tobacco Use Smoking status: Every Day Current packs/day: 0.50 Types: Cigarettes Smokeless tobacco: Never Vaping Use Vaping status: Never Used Substance Use Topics Alcohol use: Yes Comment: 6 pack a day Drug use: Never Current Outpatient Medications on File Prior to Visit Medication Sig cyclobenzaprine (FLEXERIL) 10 mg tablet Take 1 tablet by mouth three times a day as needed. mometasone-formoterol (DULERA) 200-5 mcg/actuation inhaler Inhale 2 Puffs as instructed two times a day. predniSONE (DELTASONE) 20 mg tablet Take 2 tablets by mouth once daily. nicotine polacrilex (NICORETTE) 4 mg gum Take 1 Each by mouth as needed. tiotropium bromide (SPIRIVA RESPIMAT) 2.5 mcg/actuation inhaler Inhale 2 Puffs as instructed once daily. albuterol HFA (PROVENTIL HFA, VENTOLIN HFA) 90 mcg/actuation inhaler Inhale 2 Puffs as instructed every 4 hours as needed for wheezing/shortness of breath. albuterol (PROVENTIL) 2.5 mg /3 mL (0.083 %) nebulizer solution Use 3 mL via nebulizer every 4 hours as needed for wheezing/shortness of breath. Inhale over 5-15 minutes thiamine (VITAMIN B1) 100 mg tablet Take 1 tablet by mouth three times a day. atorvastatin (LIPITOR) 80 mg tablet Take 80 mg by mouth once daily. montelukast (SINGULAIR) 10 mg tablet Take 1 tablet by mouth daily at bedtime. budesonide (PULMICORT) 0.5 mg/2 mL nebulizer solution Use 2 mL via nebulizer two times a day. lisinopril 2.5 mg tablet Take 2.5 mg by mouth once daily. clopidogrel (PLAVIX) 75 mg tablet Take 75 mg by mouth once daily. OMEPRAZOLE (PRILOSEC ORAL) Take 10 mg by mouth as needed. Unsure of dose MEDICATION, NON-DATABASE OTC cold med No current facility-administered medications on file prior to visit. Objective Exam: Vitals: As per nursing documentation Constitutional: Normal Appearance, Oriented to Time, Place and Person Head: No lacerations, no external signs of trauma Eyes: Conjunctiva clear. No discharge from the eyes Cardiovascular: Appears well-perfused Pulmonary: Non-labored respirations Abdominal: Non-distended Skin: No visible rashes or ecchymosis Psychiatric: Mood appropriate for given condition Neurological: Gross movements are limited by pain, but otherwise unremarkable Data Reviewed: Nursing note and vitals reviewed. Additional imaging reviewed as appropriate Assessment and Plan: As noted above [place] protocol documentation / Pre-Procedure Checklist: Consent: Obtained in writing prior to procedure I had a nice discussion with the patient today about their current pain and the pathology that could be causing it We discussed different treatment options, including risks, benefits and alternatives. We agreed to proceed as previously discussed, or the plan was modified in accordance with the comments noted above Unless stated otherwise in the procedure note, the risks include but are not limited to infection, allergic reaction, increased pain, lack of therapeutic benefit, steroid reaction, nerve damage, paralysis, stroke, epidural hematoma, syncope, headache, respiratory or cardiac arrest, pneumothorax, and scar formation Once the plan was agreed upon, the patient gave written consent to proceed and was transported into the procedure room Surgical/Procedure pause or Time Out : Time Out was led by the physician in the procedure room, with the patient and all staff present and participating The following information was verified during the Time Out process: Patient name, patient date of , procedure site (marked), laterality, anticoagulants and allergies Procedure: The patient was prepped and draped in a sterile fashion in the prone position after informed consent was signed and all the patient's questions were answered including the risks, benefits, alternative treatment options, and prognosis. The risks are as mentioned above. Using the approach mentioned above, the region overlying the inferior lamina was localized under fluoroscopic visualization and the soft tissues overlying this structure were infiltrated with 4 cc. of 1% Lidocaine without Epinephrine. A #20 gauge, 3.5 inch Tuohy needle was inserted into the epidural space using the approach mentioned above. The epidural space was localized using loss of resistance after negative aspirate for air, blood, and CSF. A 2 cc volume of Omnipaque 300 was injected into the epidural space and the flow of contrast was observed to be epidural. Radiographs were obtained for documentation purposes. Please see the nursing note for exact times (time out, procedure start, procedure end). After careful removal of the needle, there was minimal bleeding. The injection site was covered with appropriate sterile dressing. The patient was noted to have tolerated the procedure well and was discharged after an appropriate period of post-procedure observation. The patient was instructed to contact us if there were any complications. The patient was advised to follow-up with the requesting physician within one to two weeks or as per their requested follow-up plan. Post procedure visit summary with written instructions was offered to the patient. Everton ROGERSA Pain Management [facility] Review of Systems Constitutional: Negative for activity change, appetite change, chills and fever. Genitourinary: Negative for difficulty urinating. Musculoskeletal: Positive for arthralgias, back pain and gait problem. Negative for joint swelling, myalgias, neck pain and neck stiffness. Neurological: Negative for weakness, numbness and headaches. Psychiatric/Behavioral: Negative for dysphoric mood, sleep disturbance and suicidal ideas. The patient is not nervous/anxious. documented in this encounter [facility] 03-16-2024 Note HNO ID: [id number] Author: EVERTON DECKER MD Service: ? Author Type: Physician Type: Progress Notes Filed: 03/16/2024 11:37 Note Text: [facility] Date: 03/16/2024 Patient name: Elis Bills Physician performing procedure: Everton Decker M.D., M.B.A. PROCEDURE: Epidural Steroid Injection - Interlaminar Approach (ILESI) under fluoroscopic guidance MIDLINE at L4-5 COMMENTS: He only held Plavix for 6 days (today was day 7). We discussed risks/benefits of delaying vs proceeding (risk of epidural hematoma vs cardiac event). I suggested we try to get him in tomorrow. He elected to proceed today. I advised him to complete the 7 day hold and resume Plavix day after tomorrow. DIAGNOSIS: (M54.16) Lumbar radiculopathy (primary encounter diagnosis) INJECTATE: A total of 6 ml volume was injected The injectate consisted of: 1 ml of Depo-Medrol (40mg/ml), The remainder consisting of Normal Saline Improvement after today's procedure: as per nursing report HPI: lEis Bills is an 63 year old MALE who presents today, in pain, for the procedure noted above. Review of Systems: Pertinent Positives: MSK: pain in the region being treated Neuro: weakness or numbness in the region being treated (unless otherwise noted) Skin: Negative (No itching) Eyes: Negative (No blurred or double vision) Respiratory: Negative (No Cough, Rcjkwkqte-gm-ghhvrx, Dyspnea on exertion, wheezing) Cardiovascular: Negative (No Chest Pain, Tightness, Pressure, Palpitations) Gastrointestinal: Negative (No Abdominal pain, Nausea, Vomiting, Constipation, Diarrhea) Genitourinary: Negative (No dysuria) Hematologic: Negative (No bleeding, bruising) OB: is Denied or Not Applicable Endocrine: Negative (No hot/cold intolerance) Psychiatric: Negative (No depression, anxiety or suicidal ideation) PAST MEDICAL HISTORY No date: COPD (chronic obstructive pulmonary disease) ([facility]) No date: Hypercholesteremia No date: Stroke ([facility]) No past surgical history on file. FAMILY HISTORY Problem Relation Age of Onset No Known Problems Mother Leukemia Father Social History Tobacco Use Smoking status: Every Day Current packs/day: 0.50 Types: Cigarettes Smokeless tobacco: Never Vaping Use Vaping status: Never Used Substance Use Topics Alcohol use: Yes Comment: 6 pack a day Drug use: Never Current Outpatient Medications on File Prior to Visit Medication Sig cyclobenzaprine (FLEXERIL) 10 mg tablet Take 1 tablet by mouth three times a day as needed. mometasone-formoterol (DULERA) 200-5 mcg/actuation inhaler Inhale 2 Puffs as instructed two times a day. predniSONE (DELTASONE) 20 mg tablet Take 2 tablets by mouth once daily. nicotine polacrilex (NICORETTE) 4 mg gum Take 1 Each by mouth as needed. tiotropium bromide (SPIRIVA RESPIMAT) 2.5 mcg/actuation inhaler Inhale 2 Puffs as instructed once daily. albuterol HFA (PROVENTIL HFA, VENTOLIN HFA) 90 mcg/actuation inhaler Inhale 2 Puffs as instructed every 4 hours as needed for wheezing/shortness of breath. albuterol (PROVENTIL) 2.5 mg /3 mL (0.083 %) nebulizer solution Use 3 mL via nebulizer every 4 hours as needed for wheezing/shortness of breath. Inhale over 5-15 minutes thiamine (VITAMIN B1) 100 mg tablet Take 1 tablet by mouth three times a day. atorvastatin (LIPITOR) 80 mg tablet Take 80 mg by mouth once daily. montelukast (SINGULAIR) 10 mg tablet Take 1 tablet by mouth daily at bedtime. budesonide (PULMICORT) 0.5 mg/2 mL nebulizer solution Use 2 mL via nebulizer two times a day. lisinopril 2.5 mg tablet Take 2.5 mg by mouth once daily. clopidogrel (PLAVIX) 75 mg tablet Take 75 mg by mouth once daily. OMEPRAZOLE (PRILOSEC ORAL) Take 10 mg by mouth as needed. Unsure of dose MEDICATION, NON-DATABASE OTC cold med No current facility-administered medications on file prior to visit. Objective Exam: Vitals: As per nursing documentation Constitutional: Normal Appearance, Oriented to Time, Place and Person Head: No lacerations, no external signs of trauma Eyes: Conjunctiva clear. No discharge from the eyes Cardiovascular: Appears well-perfused Pulmonary: Non-labored respirations Abdominal: Non-distended Skin: No visible rashes or ecchymosis Psychiatric: Mood appropriate for given condition Neurological: Gross movements are limited by pain, but otherwise unremarkable Data Reviewed: Nursing note and vitals reviewed. Additional imaging reviewed as appropriate Assessment and Plan: As noted above [place] protocol documentation / Pre-Procedure Checklist: Consent: Obtained in writing prior to procedure I had a nice discussion with the patient today about their current pain and the pathology that could be causing it We discussed different treatment options, including risks, benefits and alternatives. We agreed to proceed as previously discussed, or the (more content not included)... [facility] 03-16-2024 Nurse Note Order has been placed in the patient's chart with the following parameters for discharge from the physician: Patient is alert and oriented Vitals: Diastolic/Systolic +/- 20mmHg Respirations: 12-18 Pulse: 60-100 SpO2 is greater than or equal to 90% Patient has no nausea or vomiting Patient has no dizziness Pain level is +/- 2 from initial evaluation Dressing, dry and intact with no evidence of bleeding Criteria has been met, patient is okay to be discharged per the physician. Physician has gone in and evaluated the patient. Dressing dry and intact. No drainage noted. The patient denies nausea, numbness, tingling, weakness, shortness of breath, dizziness, or headache. Pain level 0/10. Vital signs within normal limits. Patient denied needing walked out by clinical staff and denied needing a wheelchair. Patient given discharge instructions and sent to transportation via ambulatory method. Patient left in good condition. [facility] 03-16-2024 Nurse Note Order has been placed in the patient's chart with the following parameters for discharge from the physician: Patient is alert and oriented Vitals: Diastolic/Systolic +/- 20mmHg Respirations: 12-18 Pulse: 60-100 SpO2 is greater than or equal to 90% Patient has no nausea or vomiting Patient has no dizziness Pain level is +/- 2 from initial evaluation Dressing, dry and intact with no evidence of bleeding Criteria has been met, patient is okay to be discharged per the physician. Physician has gone in and evaluated the patient. Dressing dry and intact. No drainage noted. The patient denies nausea, numbness, tingling, weakness, shortness of breath, dizziness, or headache. Pain level 0/10. Vital signs within normal limits. Patient denied needing walked out by clinical staff and denied needing a wheelchair. Patient given discharge instructions and sent to transportation via ambulatory method. Patient left in good condition. Procedure to be performed: L4/L5 Interlaminar Epidural Steroid Injection Patient was wheeled on stretcher from pre op bay to procedure room and assisted onto the procedure tablePatient s procedure was performed in an [facility] Procedure room. Pause completed at each level by provider to verify correct level and laterality placement Pressure was applied to patient s injection site(s) and bleeding was minimal. Patient had no complaint of shortness of breath, dizziness, headache, numbness, tingling, weakness or complications from procedure. Patient was assisted from the procedure table onto the stretcher and wheeled into a post op bay. Patient was advised a clinician will be to obtain another set of vitals. Time Out: 110 Confirmed patient name, date of , procedure site, laterality, and allergies Procedure Start: 1106 Procedure End: 1111 Vascular Radiologist's Name: MEHREEN Are you on a blood thinner: Y-PLAVIX If yes, is a hold required: Y Last dose of blood thinner: 03/09/24 INR Result today: N Do you require a Lovenox bridge:N Are you a diabetic:N Are you/or could you be : N Are you taking Xanax for the procedure: N Are you currently on a steroid? N Are you currently on an antibiotic: N Have you had a COVID-19 vaccine in the last 14 days Or are you scheduled to receive one? N documented in this encounter [facility] 03-16-2024 Instructions Cricket Marie LPN - 03/16/2024 11:11 AM EDT PROCEDURE DISCHARGE INSTRUCTIONS 03/16/2024 Elis Bills 1960 Physician: Everton Decker MD Procedure: Epidural Steroid Injection: Lumbar (transforaminal/Interlaminar/Cau mary jo) Post Procedure Instructions: If sedation not given, no driving for 3 hours after the procedure., Rest the day of the procedure., You may resume normal activities the day after the procedure, as tolerated., Pain should gradually subside over the next 2-3 weeks., Avoid movements that may aggravate pain., Apply cold compresses to injection site if needed., If medically acceptable, take over the counter anti-inflammatories such as ibuprofen or Aleve if needed for post procedure discomfort., No hot baths, hot tubs or hot compresses for 24 hours., and Increased pain the day after the procedure may occur. If you have any of the following signs or symptoms, please call our office at Fever and/or chills Swelling and/or drainage from injection site New pain that is different than your normal pain (other than soreness at the site of the procedure) Stiff neck Shortness of breath Severe increase in pain Motor dysfunctions, such as difficulty walking, bowel or bladder dysfunction and/or incontinence Headache that is severe, light sensitive or develops when changing positions (positional headache) Nausea and/or vomiting accompanied by headache that started 24-48 hours after the procedure If you have any emergent concerns, please call 911 or go to your local emergency room. Please also contact our office to let us know you will be seeking emergency care and why. documented in this encounter [facility] 03-16-2024 Nurse Note Procedure to be performed: L4/L5 Interlaminar Epidural Steroid Injection Patient was wheeled on stretcher from pre op bay to procedure room and assisted onto the procedure tablePatient s procedure was performed in an [facility] Procedure room. Pause completed at each level by provider to verify correct level and laterality placement Pressure was applied to patient s injection site(s) and bleeding was minimal. Patient had no complaint of shortness of breath, dizziness, headache, numbness, tingling, weakness or complications from procedure. Patient was assisted from the procedure table onto the stretcher and wheeled into a post op bay. Patient was advised a clinician will be to obtain another set of vitals. Time Out: 1104 Confirmed patient name, date of , procedure site, laterality, and allergies Procedure Start: 1107 Procedure End: 1111 [facility] 03-16-2024 Note HNO ID: [id number] Author: KARTHIK LOPEZ LPN Service: ? Author Type: LICENSED NURSE Type: Progress Notes Filed: 03/16/2024 11:37 Note Text: Review of Systems Constitutional: Negative for activity change, appetite change, chills and fever. Genitourinary: Negative for difficulty urinating. Musculoskeletal: Positive for arthralgias, back pain and gait problem. Negative for joint swelling, myalgias, neck pain and neck stiffness. Neurological: Negative for weakness, numbness and headaches. Psychiatric/Behavioral: Negative for dysphoric mood, sleep disturbance and suicidal ideas. The patient is not nervous/anxious. [facility] 03-16-2024 Nurse Note Vascular Radiologist's Name: MEHREEN Are you on a blood thinner: Y-PLAVIX If yes, is a hold required: Y Last dose of blood thinner: 03/09/24 INR Result today: N Do you require a Lovenox bridge:N Are you a diabetic:N Are you/or could you be : N Are you taking Xanax for the procedure: N Are you currently on a steroid? N Are you currently on an antibiotic: N Have you had a COVID-19 vaccine in the last 14 days Or are you scheduled to receive one? N [facility] 03-16-2024 Telephone encounter Note Could you proof read this please. Thanks. [facility] 03-16-2024 Miscellaneous Notes Could you proof read this please. Thanks. documented in this encounter [facility] 03-15-2024 Telephone encounter Note Called and spoke with patient and informed him that he will need to speak with Financial Clearance before I can place him back on the schedule for this procedure. I will need this procedure paid for and cleared by them before we can reschedule. Patient voiced understanding. Vivian Fried [facility] 03-15-2024 Miscellaneous Notes Called and spoke with patient and informed him that he will need to speak with Financial Clearance before I can place him back on the schedule for this procedure. I will need this procedure paid for and cleared by them before we can reschedule. Patient voiced understanding. Vivian Corky ----- Message from Johnny Owusu sent at 03/14/2024 4:14 PM EDT ----- Regarding: Spine & Pain / Everton Decker) / Procedure / Injection Patient: Elis Bills Date of : 1960 Primary Care Provider: Pilar Steele DO Patient has been identified by name and Date of (Y/N): y Patient: Elis Bills Date of : 1960 Provider for this encounter: Pilar Steele DO Reason for the call/escalation: Pt's called in to return call from office regarding procedure that was originally scheduled with Dr Everton Decker on 03/16. Appt was cancelled by office because procedure was denied by insurance, but pt stated that they would be self-paying the procedure, and will need to have it rescheduled for 03/16. Pt requested call back from office for assistance with this appt. Was Patient Referred to 911/Seek Emergency Treatment (Y/N): n Did Patient Agree (Y/N): n Was An Attempt Made To Transfer The Patient To The Office (Y/N): n Were You Able To Reach Someone At The Office (Y/N): n If Yes - Patient Was Transferred To (Caregivers Name): n If No - Which [facility] Leadership Business Associate Did You Speak With Regarding This Patient: n Was an appointment scheduled (Y/N): n/a Reason patient was requesting visit (RFV/signs and symptoms/diagnosis) : procedure Person calling if other than patient: Spouse, Mehreen Bills Return call to if other than patient: y Best contact number: [phone] Thank you, Johnny Hdez March 14, 2024 4:14 PM documented in this encounter [facility] 03-15-2024 Telephone encounter Note ----- Message from Johnny Owuus sent at 03/14/2024 4:14 PM EDT ----- Regarding: Spine & Pain / Everton Decker) / Procedure / Injection Patient: Elis Bills Date of : 1960 Primary Care Provider: Pilar Steele DO Patient has been identified by name and Date of (Y/N): y Patient: Elis Bills Date of : 1960 Provider for this encounter: Pilar Steele DO Reason for the call/escalation: Pt's called in to return call from office regarding procedure that was originally scheduled with Dr Everton Decker on 03/16. Appt was cancelled by office because procedure was denied by insurance, but pt stated that they would be self-paying the procedure, and will need to have it rescheduled for 03/16. Pt requested call back from office for assistance with this appt. Was Patient Referred to [facility]/Seek Emergency Treatment (Y/N): n Did Patient Agree (Y/N): n Was An Attempt Made To Transfer The Patient To The Office (Y/N): n Were You Able To Reach Someone At The Office (Y/N): n If Yes - Patient Was Transferred To (Caregivers Name): n If No - Which [facility] Leadership Business Associate Did You Speak With Regarding This Patient: n Was an appointment scheduled (Y/N): n/a Reason patient was requesting visit (RFV/signs and symptoms/diagnosis) : procedure Person calling if other than patient: Spouse, Mehreen Bills Return call to if other than patient: y Best contact number: [phone] Thank you, Johnny Hdez March 14, 2024 4:14 PM [facility] 03-13-2024 Telephone encounter Note Patient Last Name SANJU Patient First Name ELIS Dumont Date of 1960 Clinical Clearance / Financial Clearance Status Pending Clinical Clearance Notifications are supported by our rocael policy and used when an immediate payer source is not available. The CCN process can allow cases to be completed while still working to obtain payer s authorization due to urgency or medical necessity. This process should not preclude us from completing the steps needed to secure authorization such us P2P and appeal as this will still allow us to receive the appropriate reimbursement. Denial Overview Denial Type Payer Clinical Guidelines Not Met Denial Rationale Based on the information submitted by your provider for treating your low back pain, the required criteria that is not met which includes documentation of signs and symptoms e.g. numbness, tingling consistent with radiculopathy i.e. pinched nerve. Therefore, the request is denied. Date of Service 03/16/2024 Is Peer to Peer Available? (Instructions below) Yes Peer to Peer Deadline until 03/22/2024 Appeal Deadline (Instructions below) 180 days from the denial date 03/08/2024 Insurance Case Information Insurance Name MARANDA Patient's Insurance Case# [id number] Ordering Provider Bertha Schumacher Approved Services N/A Denied Services [id number] - NJX DX/THER SBST INTRLMNR LMBR/SAC W/IMG GDN Alternative Recommendation N/A *Service which can be approved in place of denied service. Clinical Documentation Provided Office Visit 11/11/2023, 09/23/2023 [facility] 02/24/2024, 12/22/2023, 11/25/2023, 10/29/2023 Procedure 12/16/2023, 10/28/2023 CT CHEST WO IVCON 12/29/2023 XR CHEST 1V FRONTAL 12/01/2023 MRI LUMBAR SPINE WO IVCON 11/19/2023 CT CHEST WO IVCON 09/02/2023 Peer to Peer Instructions Peer to Peer , options: 1-2 Does Peer to Peer need to be scheduled? Yes Who can complete the Peer to Peer? Dr, PA, ENVIRONMENTAL COMPLIANCE TECHNICIAN, LN Additional Peer to Peer Instructions You can call for the peer to peer at the date and time of your convenience Appeal Instructions Appeal Address [address] [address], [facility], [address] Appeal Fax# No fax# available Required Form(s) Yes, Please see attached or can be found at [email or web address] ([employer]). Additional Appeal Instructions Send it attention to: Appeals department. Include: coversheet with patient's and case information, a formal appeal letter and attach any pertinent supporting clinical documentation. Also, insurance requires a formal appeal form filled out if you would like to submit a written appeal. Facility Information Location [facility] [id number] Tax ID# [id number] [facility] 03-13-2024 Miscellaneous Notes Patient Last Name SANJU Patient First Name ELIS Dumont Date of 1960 Clinical Clearance / Financial Clearance Status Pending Clinical Clearance Notifications are supported by our rocael policy and used when an immediate payer source is not available. The CCN process can allow cases to be completed while still working to obtain payer s authorization due to urgency or medical necessity. This process should not preclude us from completing the steps needed to secure authorization such us P2P and appeal as this will still allow us to receive the appropriate reimbursement. Denial Overview Denial Type Payer Clinical Guidelines Not Met Denial Rationale Based on the information submitted by your provider for treating your low back pain, the required criteria that is not met which includes documentation of signs and symptoms e.g. numbness, tingling consistent with radiculopathy i.e. pinched nerve. Therefore, the request is denied. Date of Service 03/16/2024 Is Peer to Peer Available? (Instructions below) Yes Peer to Peer Deadline until 03/22/2024 Appeal Deadline (Instructions below) 180 days from the denial date 03/08/2024 Insurance Case Information Insurance Name MMO Patient's Insurance Case# [id number] Ordering Provider Bertha Schumacher Approved Services N/A Denied Services [id number] - NJX DX/THER SBST INTRLMNR LMBR/SAC W/IMG GDN Alternative Recommendation N/A *Service which can be approved in place of denied service. Clinical Documentation Provided Office Visit 11/11/2023, 09/23/2023 [facility] 02/24/2024, 12/22/2023, 11/25/2023, 10/29/2023 Procedure 12/16/2023, 10/28/2023 CT CHEST WO IVCON 12/29/2023 XR CHEST 1V FRONTAL 12/01/2023 MRI LUMBAR SPINE WO IVCON 11/19/2023 CT CHEST WO IVCON 09/02/2023 Peer to Peer Instructions Peer to Peer , options: 1-2 Does Peer to Peer need to be scheduled? Yes Who can complete the Peer to Peer? Dr, PA, ENVIRONMENTAL COMPLIANCE TECHNICIAN, LN Additional Peer to Peer Instructions You can call for the peer to peer at the date and time of your convenience Appeal Instructions Appeal Address [address] [address], [facility], [address] Appeal Fax# No fax# available Required Form(s) Yes, Please see attached or can be found at [email or web address] ([employer]). Additional Appeal Instructions Send it attention to: Appeals department. Include: coversheet with patient's and case information, a formal appeal letter and attach any pertinent supporting clinical documentation. Also, insurance requires a formal appeal form filled out if you would like to submit a written appeal. Facility Information Location [facility] [phone] Tax ID# [id number] documented in this encounter [facility] 02-25-2024 Telephone encounter Note Procedure(s) being scheduled: 1.Are you diabetic No 2. Are you on any blood thinners? Yes. Please list the current medications being prescribed plavix. If yes, does it require a hold? Yes If yes, was approval letter sent? Yes 3. Are you taking any aspirin? No 4. Are you currently taking any antibiotics? No If yes, is it prophylactic or for treatment of an infection? 5. Do you have any allergies to latex? No 6. Do you have any allergies to seafood or shellfish? No 7. Do you have any allergies to x-ray dye? No 8. Did the physician instruct you to take any medication prior to your procedure? No 9. Does this procedure require a charter coach driver? Yes If yes, has patient been notified that a charter coach driver is needed and must be present at check in? 10. Were the pre-procedure instructions explained and provided to the patient? Yes 11. Do you have a pacemaker? No 12. Do you have an internal stimulator of any kind? No If yes, please bring the remote with you to your procedure visit. 13. Have you received the COVID-19 Vaccine? Yes. If yes, date(s) received: (Patient should not receive a procedure including steroids 14 days prior to their first dose of the COVID vaccine. They should not receive any procedure containing steroids in the time frame between their 1st and 2nd doses of the COVID vaccine. They should not receive a procedure containing steroids 14 days after their 2nd dose of the COVID vaccine.) Diane Lagos [facility] 02-25-2024 Miscellaneous Notes Procedure(s) being scheduled: 1.Are you diabetic No 2. Are you on any blood thinners? Yes. Please list the current medications being prescribed plavix. If yes, does it require a hold? Yes If yes, was approval letter sent? Yes 3. Are you taking any aspirin? No 4. Are you currently taking any antibiotics? No If yes, is it prophylactic or for treatment of an infection? 5. Do you have any allergies to latex? No 6. Do you have any allergies to seafood or shellfish? No 7. Do you have any allergies to x-ray dye? No 8. Did the physician instruct you to take any medication prior to your procedure? No 9. Does this procedure require a charter coach driver? Yes If yes, has patient been notified that a charter coach driver is needed and must be present at check in? 10. Were the pre-procedure instructions explained and provided to the patient? Yes 11. Do you have a pacemaker? No 12. Do you have an internal stimulator of any kind? No If yes, please bring the remote with you to your procedure visit. 13. Have you received the COVID-19 Vaccine? Yes. If yes, date(s) received: (Patient should not receive a procedure including steroids 14 days prior to their first dose of the COVID vaccine. They should not receive any procedure containing steroids in the time frame between their 1st and 2nd doses of the COVID vaccine. They should not receive a procedure containing steroids 14 days after their 2nd dose of the COVID vaccine.) Diane Lagos documented in this encounter [facility] 02-25-2024 Telephone encounter Note The Anticoag Management letter has been sent to the PCP, Pilar Steele DO via facsimile. [phone] Diane Lagos [facility] 02-25-2024 Miscellaneous Notes The Anticoag Management letter has been sent to the PCP, Pilar Steele DO via facsimile. [phone] Diane Lagos documented in this encounter [facility] 02-25-2024 Telephone encounter Note Outbound Call to patient to schedule Injection - Epidural Steroid Injection - Interlaminar Approach (ILESI) under fluoroscopic guidance NONE at L4-5 (Currently Taking: Plavix needs 7 day hold) - Reached ; [facility] [phone] (cell/home) JASS Block [facility] 02-25-2024 Miscellaneous Notes Outbound Call to patient to schedule Injection - Epidural Steroid Injection - Interlaminar Approach (ILESI) under fluoroscopic guidance NONE at L4-5 (Currently Taking: Plavix needs 7 day hold) - Reached ; [facility] [phone] (cell/home) JASS Block documented in this encounter [facility] 02-24-2024 Instructions Bertha Schumacher APRN.CNP - 02/24/2024 4:21 PM EDT Ice and heat as tolerated Activity as tolerated documented in this encounter [facility] 02-24-2024 History of Present illness Narrative Images from the original note were not included. VIRTUAL VISIT PROGRESS NOTE This is a virtual visit using Audio only It required patient-provider interaction for the medical decision making as documented below. I have communicated my name and active licensure. The patient's identity and physical location were verified at the time of this visit. Either the patient or their legal ict sales representative has been informed of the risks and benefits of -- and alternatives to -- treatment through a remote evaluation and consents to proceed with the evaluation remotely. [facility] Today's Date:02/24/2024 Name: Elis Bills : 1960 Purpose: Follow-up Patient Evaluation - This is an established patient, returning today for continued evaluation and management of the chief complaint noted below (Telemedicine) Chief complaint: low back pain Referring Clinician: Pertinent Past Medical History: COPD, Obesity, HTN, HLD, CVA Pertinent Past Surgeries: B/L THR This is a virtual visit via Zoom, Phone and/or MyChart. It required patient-provider interaction for the medical decision making as documented below. Patient understands that privacy cannot be guaranteed. Note: Examination was limited today due to this being a virtual/telemedicine encounter Plan at last visit: (Seen on 12/22/2023 by Yashira Gonsales CNP) IMPRESSION: 63 year old male presents with complaint(s) of lumbar spondylosis. 12/16/23 BL MBB #1L3-4 and L4-5. Patient reports 80 % relief from procedure with pain score of 0/10 for 3-4 hours length of time Diagnoses: (M47.816) Lumbar spondylosis (primary encounter diagnosis) PLAN: Elis Bills would benefit from the following to reach personal goals for decreasing pain, improving function and work participation, and/or improving quality of life: Medications: No Changes - Continue Current Medications Interventional Procedures: None Studies: None Functional Christianity: NONE Referrals: No additional considerations at present Follow-up: appeal letter Depending on response to the above plan, consider: Interval History: Overall pain and functional disability since last visit: unchanged New Complaints since last visit:no Patient is here after the insurance denied potentially doing an RFA for his lumbar spine pain. Patient has low back pain with no radicular symptoms. Patient had on 10/28/2023 a lumbar medial branch nerve block bilaterally from L4 for L5 L5-S1 which did not help at all. He then had an injection on 12/16/2023 the bilateral medial branch block at L3-L4 L4-L5, 1 level up, with 80% relief. We attempted to get the RFA approved but do it in the higher area and it was denied due to the first 1 not getting enough relief. An appeal letter was written and the denial was upheld. The patient is very upset. Stating he is miserable while everybody is trying to get things figured out. Patient wants to know what can be done for his back pain as with the disputing it did help his pain he continues to have pain. Patient has tried tramadol in the past with no relief. Patient has tried Tylenol which does not help as that much either. Patient is on Plavix so we have to avoid NSAIDs. Patient's main complaint is not radicular symptoms it is pain in his low back. Patient complaining of pain with ambulation with standing as long as he sitting or lying down he has no pain. Patient stating that it is a sharp pain with the activity mentioned. Patient stating that is causing him not to be able to work or be active at all and when he stands any length of time he is hunched over. Current Pain Medications: Neuropathics: NSAIDS: Muscle Relaxants: Topicals: Other Prescription or OTC Pain Medications: Opioids (when applicable): Greenlight Questionnaire GREENLIGHT Completed Date 09/23/2023 Opioid Risk Tool Opiod Risk Tool Date Completed 09/23/2023 Comments 0 MOHINDER-7 Anxiety Score 0 Completed Date 09/23/2023 PHQ9P Score 0 Completed Date 09/23/2023 Anti-depressants or Mood-Stabilizers: None Anti-Coagulants: Plavix Therapies Attended (Current or Most Recent): 12 sessions PT 09/23/2023 AG SPINE COMBINATION Questionnaire GREENLIGHT Completed Date 09/23/2023 Questionnaire Opiod Risk Tool Completed Date 09/23/2023 Comments 0 No question data found. (All drug screens are appropriate unless indicated otherwise) Notable Events During Course of Treatment: 09/22/2023 - Initial HPI (Obtained by Bertha Schumacher CNP). DURATION AND ONSET: The pain complaint has been present for approximately 9 months. The pain had a sudden onset. The mechanism of injury is unknown. RED FLAG SYMPTOMS: denies red flags. PAIN DESCRIPTION: Timing: Intermittent Character: Burning, Sharp, Stabbing Primary Location: low back Radiation: none Exacerbating factors: Walking, getting up from a seated position Relieving factors: Sitting Interferes with: physical activity and work Patient is here today complaining of low back pain without radicular symptoms. Patient stating that he has had an x-ray of his lumbar spine but no MRI. Patient stating that he has had an injection into his low back, with no relief. Patient states he did not care for the explanation of the next plan of care from this provider and so he is changing pain management. Patient has done recent physical therapy. 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 States he is fine until he starts walking or moving and then the pain increases. States he is fine at sitting. Patient states he was prescribed tramadol and it is not helping at all with his pain so he stopped use. Patient is also on Plavix and is aware that he cannot take NSAIDs. Patient is here to see what can be done for his back pain as it is interfering with his activities of daily living and his work. Treatment History: PAIN PROCEDURES: DATE PROCEDURE IMPROVEMENT 12/16/23 MBB BL L3-4 and L4-5. 80% 10/28/2023 MBB B/L L4-S1 No relief MEDICATIONS Taken TO DATE (for the chief complaint(s)): Neuropathics: None NSAIDS: unable to take, on plavix, states he did take in the past with relief. Muscle Relaxants: None Topicals: None Other Prescription or OTC Pain Medications: Tylenol (Acetaminophen) Opioids: Tramadol Data Reviewed Today: Allergies: ALLERGIES Allergen Reactions Penicillins Unknown Social History Tobacco Use Smoking status: Every Day Packs/day: .5 Types: Cigarettes Smokeless tobacco: Never Vaping Use Vaping Use: Never used Substance Use Topics Alcohol use: Yes Comment: 6 pack a day Drug use: Never 12/18/2023 02/24/2024 INTAKE PAIN ASSESSMENT Are you having pain associated with your visit today? Yes, Provider notified Yes, Provider notified Pain Level 9 10 Pain Location Back-Lower Back-Lower Description Sharp;Shooting;Stabbing;Stiffnes s Duration Amount of Time 5 Duration Units Minutes Minutes Frequency Intermittent Intermittent Intervention/Comfort measure Medication;Reposition;Exercise;H eat;Massage;Rocking/holding Exercise;Massage Compliance: PDMP website checked and validated on 02/24/2024 by Bertha Schumacher APRN.[employer] 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 All prescriptions have been APPROPRIATELY filled. No suspicious activity was identified. Risk Assessment: MOHINDER-7: 09/23/2023 OMHINDER - 7 SCORES Score 0 (0-4) minimal anxiety, (5-9) mild anxiety, (10-14) moderate anxiety, (15-21) severe anxiety PHQ-9: 09/23/2023 PHQ-9 Score 0 (0-4) minimal depression, (5-9) mild depression, (10-14) moderate depression, (15-19) moderately severe depression, (20-27) severe depression Diagnostic Studies: Relevant Imaging: MRI Spine Report MRI LUMBAR SPINE WO IVCON Exam End: 11/19/2023 12:39 PM (Final result) Narrative: * * *Final Report* * * DATE OF EXAM: Nov 19 2023 12:39PM BRM [id number] - MRI LUMBAR SPINE WO IVCON / PROCEDURE REASON: Spinal 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 * * * * Physician Interpretation * * * * EXAMINATION: MRI LUMBAR SPINE WO IVCON Clinical history provided by the ordering clinician via order question and clinical decision support entries: Spinal stenosis, spondylolisthesis, radiculopathy, trauma. Spinal stenosis, lumbar. Spinal 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. Stated history: stenosis, fall, lbp, no prev. TECHNIQUE: Routine lumbosacral spine MR protocol without gadolinium. MQ: [id number] COMPARISON: 09/02/[address] RESULT: Counting reference: Lumbosacral junction. For the purposes of this report, L4-5 is considered the level of the iliac crest and assume there are 5 lumbar-type vertebrae. Anatomic variant: None. Alignment: Alignment is anatomic. Bone marrow signal/fracture: Moderate generalized edema throughout the L1 vertebral body associated with a ventral superior endplate predominant compression fracture deformity with approximately 20% ventral loss of vertebral body height. Incidental small vertebral body hemangioma along the dorsal right upper margin of the L2 vertebral body. Type II degenerative endplate changes at L2-L3 most pronounced along the right ventral margin. Mild type I degenerative endplate changes along the dorsal midline and left dorsolateral margin of L3-L4. Chronic nondisplaced right L5 pars defect and questionable integrity of the left L5 pars interarticularis. Conus: Normal in signal and morphology terminating at the level of the mid L1 vertebral body. Soft tissues: The dorsal paraspinal soft tissues are within normal limits. The paravertebral soft tissues are unremarkable. Imaged portions of the intra-abdominal intrapelvic contents demonstrate no significant findings. T11-T12: Canal and foramina are patent. T12-L1: Canal and foramina are patent. L1-L2: Prominent epidural lipomatous tissue mild to moderately effacing the thecal sac, but otherwise no substantial superimposed spinal canal or neuroforaminal stenosis. L2-L3: Prominent epidural lipomatous tissue with superimposed disc bulge and endplate osteophyte formation with resultant severe effacement of the thecal sac. Endplate osteophyte formation and facet arthropathy contributes to no more than mild left and no substantial right foraminal stenosis. L3-L4: Prominent epidural lipomatous tissue with superimposed disc bulge, endplate osteophyte formation, and facet arthropathy contributing to severe effacement of the thecal sac and mild left and no substantial right foraminal stenosis. L4-L5: Prominent epidural lipomatous tissue with disc bulge, endplate osteophyte formation, facet arthropathy contributing to no more than mild thecal sac effacement and no more than mild bilateral foraminal stenosis. L5-S1: Prominent epidural lipomatous tissue in conjunction with disc bulge, endplate osteophyte formation, and facet arthropathy contributing to mild to moderate thecal sac effacement and moderate right and mild left foraminal stenosis. Sacrum and iliac wings: The visualized sacrum and iliac wings are within normal limits. The presacral soft tissues are normal in appearance. Localizer images: Circumscribed subcentimeter T2 hyperintense focus in the posterior right hepatic lobe suggesting a small cyst or hemangioma. Impression: IMPRESSION: Subacute compression fracture deformity of the L1 ventral superior endplate with approximately 20% height loss and moderate generalized edema, but no convincing underlying pathologic marrow replacement. Diffuse lumbar epidural lipomatous hypertrophy with superimposed degenerative changes with resultant thecal sac narrowing being most pronounced and severe at L2-L3 and L3-L4. Neuroforaminal stenosis most pronounced and moderate in severity on the right at L5-S1. 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 Anatomic Thoracic/Lumbar Variant: None. L4-5 is considered the level of the iliac crest and assume there are 5 lumbar-type vertebrae. Package Winder: [facility] Transcribe Date/Time: Nov 19 2023 3:30P Dictated by : MECHELLE EDMONDSON MD This examination was interpreted and the report reviewed and electronically signed by: MECHELLE EDMONDSON MD on Nov 19 2023 3:44PM EST Electrodiagnostic Study (EMG): None Recent Labs: Creatinine Date Value Ref Range Status 12/02/2023 0.90 0.73 - 1.22 mg/dL Final No results found for: GFR No results found for: PCGLUCOSE Current Medications, Past Medical History, Past Surgical History, Family History & Social History: Reviewed on today's date. Review of Systems: Reviewed on today's date. Pertinent Positives: MSK - pain in the region being treated Neuro: no weakness or numbness in the region being treated Skin: Negative (No itching) Eyes: Negative (No blurred or double vision) Respiratory: Negative (No Cough, Ofxlgpchb-xo-ifario, Dyspnea on exertion, wheezing) Cardiovascular: Negative (No Chest Pain, Tightness, Pressure, Palpitations) Gastrointestinal: Negative (No Abdominal pain, Nausea, Vomiting, Constipation, Diarrhea) Genitourinary: Negative (No dysuria) Hematologic: Negative (No bleeding, bruising) OB: is Denied or Not Applicable Endocrine: Negative (No hot/cold intolerance) Psychiatric: Negative (No depression, anxiety or suicidal ideation) Physical Exam: There were no vitals filed for this visit. VIDEO EXAM: (if completed, performed via video enabled technology) No exam performed Audio only IMPRESSION: 63 year old male presents with complaint(s) of lumbar spondylosis. The patient is frustrated with his current care. Stating that he did have 1 injection that did help with the pain. Patient is also had 1 injection with another pain management doctor, a caudal injection, which did not help with the pain. We do lengthy discussion regarding her choices. I am assuming that the insurance company from reading between the lines is not approving the RFA as he has had only 1 successful 1 at L4-L5, the injection done at L5-S1 was not successful. However, due to the length of time of relief, patient wants to try to do interlaminar epidural steroid injection to see if he can get relief from that with 1 injection instead of trying multiple again that may not even get approved. I am ordering an interlaminar epidural steroid injection from L4-L5. I am doing this is that this is where he received the most relief from the procedure when the nerve block was done. If this is not successful I am going to try to do another medial branch nerve block from L4 L3-L4 L4-L5 to see if he does get relief from that. Patient stated understanding with the procedure and the plan and is in agreement with the plan. We will attempt Flexeril to help with the pain as we are very limited in what we can prescribe to help with the pain. Diagnoses: (M47.816) Lumbar spondylosis (primary encounter diagnosis) (M48.061) Spinal 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 (M54.40, G89.29) Chronic bilateral low back pain with sciatica, sciatica laterality unspecified PLAN: Elis Bills would benefit from the following to reach personal goals for decreasing pain, improving function and work participation, and/or improving quality of life: Medications: Requested Prescriptions Signed Prescriptions Disp Refills cyclobenzaprine (FLEXERIL) 10 mg tablet 90 tablet 2 Sig: Take 1 tablet by mouth three times a day as needed. Interventional Procedures: Epidural Steroid Injection - Interlaminar Approach (ILESI) under fluoroscopic guidance NONE at L4-5 Vascular Radiologist Needed: Epidural - YES Anticoagulant - Hold Needed: Lumbar Epidural (HOLD) Anticoagulant - Currently Taking: Plavix (7 days when hold needed) Allergies (relevant): None Scheduling - Mobility (Can Patient independently transfer on/off an OR or Procedure table?): YES (May schedule at any location) Scheduling - Additional Info: None Studies: None Functional Christianity: NONE Referrals: No additional considerations at present Follow-up: 2 weeks after injection Depending on response to the above plan, consider: TBD Compliance and Clinic Policies Reviewed and/or Discussed Today: None Attribution: In addition to reviewing the information noted above, some elements copied from my most recent clinical note(s), including the physical exam (completed in entirety today), and the impression and plan sections, have been updated where appropriate. All reflect current medical decision making from today's date. I spent a total of 20 minutes on the date of the service which included preparing to see the patient, completing clinical documentation, obtaining and/or reviewing separately obtained history, performing a medically appropriate examination, and counseling and educating the patient/family/caregiver. Bertha Schumacher APRN.CNP Pain Management [facility] documented in this encounter [facility] 02-24-2024 Note HNO ID: [id number] Author: BERTHA SCHUMACHER APRN.CNP Service: ? Author Type: Nurse Practitioner Type: Progress Notes Filed: 02/24/2024 16:21 Note Text: VIRTUAL VISIT PROGRESS NOTE This is a virtual visit using Audio only It required patient-provider interaction for the medical decision making as documented below. I have communicated my name and active licensure. The patient's identity and physical location were verified at the time of this visit. Either the patient or their legal ict sales representative has been informed of the risks and benefits of -- and alternatives to -- treatment through a remote evaluation and consents to proceed with the evaluation remotely. [facility] Today's Date:02/24/2024 Name: Elis Bills : 1960 Purpose: Follow-up Patient Evaluation - This is an established patient, returning today for continued evaluation and management of the chief complaint noted below (Telemedicine) Chief complaint: low back pain Referring Clinician: Pertinent Past Medical History: COPD, Obesity, HTN, HLD, CVA Pertinent Past Surgeries: B/L THR This is a virtual visit via Zoom, Phone and/or MyChart. It required patient-provider interaction for the medical decision making as documented below. Patient understands that privacy cannot be guaranteed. Note: Examination was limited today due to this being a virtual/telemedicine encounter Plan at last visit: (Seen on 12/22/2023 by Yashira Gonsales CNP) IMPRESSION: 63 year old male presents with complaint(s) of lumbar spondylosis. 12/16/23 BL MBB #1L3-4 and L4-5. Patient reports 80 % relief from procedure with pain score of 0/10 for 3-4 hours length of time Diagnoses: (M47.816) Lumbar spondylosis (primary encounter diagnosis) PLAN: Elis Bills would benefit from the following to reach personal goals for decreasing pain, improving function and work participation, and/or improving quality of life: Medications: No Changes - Continue Current Medications Interventional Procedures: None Studies: None Functional Christianity: NONE Referrals: No additional considerations at present Follow-up: appeal letter Depending on response to the above plan, consider: Interval History: Overall pain and functional disability since last visit: unchanged New Complaints since last visit:no Patient is here after the insurance denied potentially doing an RFA for his lumbar spine pain. Patient has low back pain with no radicular symptoms. Patient had on 10/28/2023 a lumbar medial branch nerve block bilaterally from L4 for L5 L5-S1 which did not help at all. He then had an injection on 12/16/2023 the bilateral medial branch block at L3-L4 L4-L5, 1 level up, with 80% relief. We attempted to get the RFA approved but do it in the higher area and it was denied due to the first 1 not getting enough relief. An appeal letter was written and the denial was upheld. The patient is very upset. Stating he is miserable while everybody is trying to get things figured out. Patient wants to know what can be done for his back pain as with the disputing it did help his pain he continues to have pain. Patient has tried tramadol in the past with no relief. Patient has tried Tylenol which does not help as that much either. Patient is on Plavix so we have to avoid NSAIDs. Patient's main complaint is not radicular symptoms it is pain in his low back. Patient complaining of pain with ambulation with standing as long as he sitting or lying down he has no pain. Patient stating that it is a sharp pain with the activity mentioned. Patient stating that is causing him not to be able to work or be active at all and when he stands any length of time he is hunched over. Current Pain Medications: Neuropathics: NSAIDS: Muscle Relaxants: Topicals: Other Prescription or OTC Pain Medications: Opioids (when applicable): Greenlight Questionnaire GREENLIGHT Completed Date 09/23/2023 Opioid Risk Tool Opiod Risk Tool Date Completed 09/23/2023 Comments 0 MOHINDER-7 Anxiety Score 0 Completed Date 09/23/2023 PHQ9P Score 0 Completed Date 09/23/2023 Anti-depressants or Mood-Stabilizers: None Anti-Coagulants: Plavix Therapies Attended (Current or Most Recent): 12 sessions PT 09/23/2023 AG SPINE COMBINATION Questionnaire GREENLIGHT Completed Date 09/23/2023 Questionnaire Opiod Risk Tool Completed Date 09/23/2023 Comments 0 No question data found. (All drug screens are appropriate unless indicated otherwise) Notable Events During Course of Treatment: 09/22/2023 - Initial HPI (Obtained by Bertha Schumacher CNP). DURATION AND ONSET: The pain complaint has been present for approximately 9 months. The pain had a sudden onset. The mechanism of injury is unknown. RED (more content not included)... [facility] 01-24-2024 Telephone encounter Note Please assist Catherine Champion APRN.NABOR [facility] Work Phone: 01-24-2024 Miscellaneous Notes Please assist Catherine Champion APRN.CNP documented in this encounter [facility] 01-17-2024 Telephone encounter Note TIMO: 11/11/2023 Future OV: 02/10/2024 Call transferred to [place] RN from [address] Mehreen, patient's called. Patient name and verified. All information about patient gathered from , patient not present at time of phone call stays patient was hospitalized November 30 for SOB episode. Says this latest flare up started approximately on WednesdayJanuary 07 with a cough and SOB. Says pt. lost voice from coughing so much but was unable to say if it is productive or not. states 's SOB is similar to past SOB episodes. Says he hasn't gotten better, and they have not gotten away from doing the albuterol nebulizing every 4 hours. had trouble describing the relief the albuterol nebulizing treatments give. After some rephrasing says yes he is able to catch his breath after doing nebulizing treatment. Per , he is not using albuterol rescue inhaler, says she doesn't need do and doesn't want him to. She described a situation with her son when he was young where she said she was told using the rescue inhaler too often will decrease effectiveness. Reiterated to albuterol inhaler prescription instructions and that it could help relieve wheezing/SOB. states he is using pulmicort two times a day as prescribed. Last time patient nebulized albuterol was 0600 this morning but states sounded SOB on the phone when he called her around 0800. Thinks is just used to these episodes, and she doesn't want him to let it get to a worse level. He is at work at the moment. She is worried about him and she states that he has no idea she is calling about him. She would like to be called back at mobile number listed in patient chart. denies patient having fever, chills, night sweats, headache, or sore throat. Advised patient be seen at urgent care or ED if symptoms worsen or change. Instructed on signs and symptoms of worsening SOB. is agreeable and verbalized understanding. [facility] 01-17-2024 Miscellaneous Notes TIMO: 11/11/2023 Future OV: 02/10/2024 Call transferred to [place] NEENA from [address] Mehreen, patient's called. Patient name and verified. All information about patient gathered from , patient not present at time of phone call stays patient was hospitalized November 30 for SOB episode. Says this latest flare up started approximately on WednesdayJanuary 07 with a cough and SOB. Says pt. lost voice from coughing so much but was unable to say if it is productive or not. states 's SOB is similar to past SOB episodes. Says he hasn't gotten better, and they have not gotten away from doing the albuterol nebulizing every 4 hours. had trouble describing the relief the albuterol nebulizing treatments give. After some rephrasing says yes he is able to catch his breath after doing nebulizing treatment. Per , he is not using albuterol rescue inhaler, says she doesn't need do and doesn't want him to. She described a situation with her son when he was young where she said she was told using the rescue inhaler too often will decrease effectiveness. Reiterated to albuterol inhaler prescription instructions and that it could help relieve wheezing/SOB. states he is using pulmicort two times a day as prescribed. Last time patient nebulized albuterol was 0600 this morning but states sounded SOB on the phone when he called her around 0800. Thinks is just used to these episodes, and she doesn't want him to let it get to a worse level. He is at work at the moment. She is worried about him and she states that he has no idea she is calling about him. She would like to be called back at mobile number listed in patient chart. denies patient having fever, chills, night sweats, headache, or sore throat. Advised patient be seen at urgent care or ED if symptoms worsen or change. Instructed on signs and symptoms of worsening SOB. is agreeable and verbalized understanding. documented in this encounter [facility] 01-11-2024 Telephone encounter Note Pharmacy faxed requesting the following refill. TIMO: 11/11/23-patient requesting [facility] day [facility]. Requested Prescriptions Pending Prescriptions Disp Refills mometasone-formoterol (DULERA) 200-5 mcg/actuation inhaler 39 g 3 Sig: Inhale 2 Puffs as instructed two times a day. Patient Phone numbers: [phone] (home) Request is for script(s) to be escript to pharmacy. Edel Cramer [facility] 01-11-2024 Miscellaneous Notes Pharmacy faxed requesting the following refill. TIMO: 11/11/23-patient requesting 90 day supply [facility]. Requested Prescriptions Pending Prescriptions Disp Refills mometasone-formoterol (DULERA) 200-5 mcg/actuation inhaler 39 g 3 Sig: Inhale 2 Puffs as instructed two times a day. Patient Phone numbers: [phone] (home) Request is for script(s) to be escript to pharmacy. Edel Cramer documented in this encounter [facility] 01-06-2024 Telephone encounter Note Rx mail pharmacy faxed requesting the following refill. Requested Prescriptions Pending Prescriptions Disp Refills nicotine polacrilex (NICORETTE) 4 mg gum 300 Each 3 Sig: Take 1 Each by mouth as needed. tiotropium bromide (SPIRIVA RESPIMAT) 2.5 mcg/actuation inhaler 12 g 3 Sig: Inhale 2 Puffs as instructed once daily. albuterol HFA (PROVENTIL HFA, VENTOLIN HFA) 90 mcg/actuation inhaler 3 Each 3 Sig: Inhale 2 Puffs as instructed every 4 hours as needed for wheezing/shortness of breath. Patient Phone numbers: [phone] (home) Request is for script(s) to be escript to mail order [facility]. Dalia Segura [facility] 01-06-2024 Miscellaneous Notes Rx mail pharmacy faxed requesting the following refill. Requested Prescriptions Pending Prescriptions Disp Refills nicotine polacrilex (NICORETTE) 4 mg gum 300 Each 3 Sig: Take 1 Each by mouth as needed. tiotropium bromide (SPIRIVA RESPIMAT) 2.5 mcg/actuation inhaler 12 g 3 Sig: Inhale 2 Puffs as instructed once daily. albuterol HFA (PROVENTIL HFA, VENTOLIN HFA) 90 mcg/actuation inhaler 3 Each 3 Sig: Inhale 2 Puffs as instructed every 4 hours as needed for wheezing/shortness of breath. Patient Phone numbers: [phone] (home) Request is for script(s) to be escript to mail order [facility]. Dalia Segura documented in this encounter [facility] 01-03-2024 Telephone encounter Note Attempted to contact patient via telephone. Patient telephone extreme static and was unable to speak with patient. Sent [employer] message regarding message below. Alen Mayorga MD15 minutes ago (3:05 PM) CT chest shows stable small/tiny nodules. Further decision for continued surveillance to be made by Dr. Womack at subsequent office visits. CT shows dilated pulmonary artery but recent Echo shows normal RV size and function. Brooke Her, RN [facility] 01-03-2024 Miscellaneous Notes Attempted to contact patient via telephone. Patient telephone extreme static and was unable to speak with patient. Sent [employer] message regarding message below. Alen Mayorga MD15 minutes ago (3:05 PM) CT chest shows stable small/tiny nodules. Further decision for continued surveillance to be made by Dr. Womack at subsequent office visits. CT shows dilated pulmonary artery but recent Echo shows normal RV size and function. Brooke Her, RN CT chest shows stable small/tiny nodules. Further decision for continued surveillance to be made by Dr. Womack at subsequent office visits. CT shows dilated pulmonary artery but recent Echo shows normal RV size and function. documented in this encounter [facility] 01-03-[address] chest shows stable small/tiny nodules. Further decision for continued surveillance to be made by Dr. Womack at subsequent office visits. CT shows dilated pulmonary artery but recent Echo shows normal RV size and function. [facility] Work Phone: 12-29-2023 History of Present illness Narrative Radiology Service Progress Note PATIENT NAME: Elis Bills DATE OF SERVICE: December 29, 2023 TIME: 11:15 AM PATIENT IDENTITY VERIFICATION COMPLETED USING TWO (2) IDENTIFIERS: Name and Date of confirmed by patient verbally. FALL SCREENING: Has the patient had 2 falls in the last year or 1 fall with injury or currently using an Ambulatory Assistive Device (Walker, Cane, Wheelchair, Crutches, etc.)? No PATIENT GENDER DATA: Male PATIENT RELEVANT IMPLANT DATA REVIEWED: Yes PATIENT PRESENTS WITH AN IMPLANTABLE OR ATTACHED PROFILE TRIMMER: No RADIOLOGY DEPARTMENT: CT; Exam(s) Completed: Chest PERIPHERAL IV DATA: Not applicable SIGNED BY: ADRIANA Gaspar) December 29, 2023 11:15 AM documented in this encounter [facility] 12-29-2023 Note HNO ID: [id number] Author: ROSE VICTORIA RT(R) Service: Radiology Author Type: Co Op Type: Progress Notes Filed: 12/29/2023 11:15 Note Text: Radiology Service Progress Note PATIENT NAME: Elis Bills DATE OF SERVICE: December 29, 2023 TIME: 11:15 AM PATIENT IDENTITY VERIFICATION COMPLETED USING TWO (2) IDENTIFIERS: Name and Date of confirmed by patient verbally. FALL SCREENING: Has the patient had 2 falls in the last year or 1 fall with injury or currently using an Ambulatory Assistive Device (Walker, Cane, Wheelchair, Crutches, etc.)? No PATIENT GENDER DATA: Male PATIENT RELEVANT IMPLANT DATA REVIEWED: Yes PATIENT PRESENTS WITH AN IMPLANTABLE OR ATTACHED PROFILE TRIMMER: No RADIOLOGY DEPARTMENT: CT; Exam(s) Completed: Chest PERIPHERAL IV DATA: Not applicable SIGNED BY: RT Chasity(R) December 29, 2023 11:15 AM [facility] 12-22-2023 History of Present illness Narrative Images from the original note were not included. VIRTUAL VISIT PROGRESS NOTE This is a virtual visit using Audio only It required patient-provider interaction for the medical decision making as documented below. I have communicated my name and active licensure. The patient's identity and physical location were verified at the time of this visit. Either the patient or their legal ict sales representative has been informed of the risks and benefits of -- and alternatives to -- treatment through a remote evaluation and consents to proceed with the evaluation remotely. [facility] Today's Date:12/22/23 Name: Elis Bills : 1960 Purpose: Post-Procedure Evaluation (Telemedicine) Chief complaint: low back pain Referring Clinician: Pertinent Past Medical History: COPD, Obesity, HTN, HLD, CVA Pertinent Past Surgeries: B/L THR This is a virtual visit via Zoom, Phone and/or Oasys Mobilehart. It required patient-provider interaction for the medical decision making as documented below. Patient understands that privacy cannot be guaranteed. Note: Examination was limited today due to this being a virtual/telemedicine encounter Interval History: Overall pain and functional disability since last visit: unchanged New Complaints since last visit:no 12/16/23 BL MBB #1L3-4 and L4-5. Patient reports 80 % relief from procedure with pain score of 0/10 for 3-4 hours length of time. Patient reports improved quality of life and increase in ability to perform ADL's. Letter for #2 MBB appeal Current Pain Medications: Neuropathics: NSAIDS: Muscle Relaxants: Topicals: Other Prescription or OTC Pain Medications: Opioids (when applicable): Greenlight Questionnaire GREENLIGHT Completed Date 09/23/2023 Opioid Risk Tool Opiod Risk Tool Date Completed 09/23/2023 Comments 0 MOHINDER-7 Anxiety Score 0 Completed Date 09/23/2023 PHQ9P Score 0 Completed Date 09/23/2023 Anti-depressants or Mood-Stabilizers: None Anti-Coagulants: Plavix Therapies Attended (Current or Most Recent): 12 sessions PT 09/23/2023 AG SPINE COMBINATION Questionnaire GREENLIGHT Completed Date 09/23/2023 Questionnaire Opiod Risk Tool Completed Date 09/23/2023 Comments 0 No question data found. (All drug screens are appropriate unless indicated otherwise) Notable Events During Course of Treatment: 09/22/2023 - Initial HPI (Obtained by Bertha Schumacher CNP). DURATION AND ONSET: The pain complaint has been present for approximately 9 months. The pain had a sudden onset. The mechanism of injury is unknown. RED FLAG SYMPTOMS: denies red flags. PAIN DESCRIPTION: Timing: Intermittent Character: Burning, Sharp, Stabbing Primary Location: low back Radiation: none Exacerbating factors: Walking, getting up from a seated position Relieving factors: Sitting Interferes with: physical activity and work Patient is here today complaining of low back pain without radicular symptoms. Patient stating that he has had an x-ray of his lumbar spine but no MRI. Patient stating that he has had an injection into his low back, with no relief. Patient states he did not care for the explanation of the next plan of care from this provider and so he is changing pain management. Patient has done recent physical therapy. 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 States he is fine until he starts walking or moving and then the pain increases. States he is fine at sitting. Patient states he was prescribed tramadol and it is not helping at all with his pain so he stopped use. Patient is also on Plavix and is aware that he cannot take NSAIDs. Patient is here to see what can be done for his back pain as it is interfering with his activities of daily living and his work. Treatment History: PAIN PROCEDURES: DATE PROCEDURE IMPROVEMENT 12/16/23 MBB #1 BL L3-4 and L4-5. 80% MEDICATIONS Taken TO DATE (for the chief complaint(s)): Neuropathics: None NSAIDS: unable to take, on plavix, states he did take in the past with relief. Muscle Relaxants: None Topicals: None Other Prescription or OTC Pain Medications: Tylenol (Acetaminophen) Opioids: Tramadol Data Reviewed Today: Allergies: ALLERGIES Allergen Reactions Penicillins Unknown Social History Tobacco Use Smoking status: Every Day Packs/day: .5 Types: Cigarettes Smokeless tobacco: Never Vaping Use Vaping Use: Never used Substance Use Topics Alcohol use: Yes Comment: 6 pack a day Drug use: Never 12/16/2023 12/18/2023 INTAKE PAIN ASSESSMENT Are you having pain associated with your visit today? Yes, Provider notified Yes, Provider notified Pain Scales Verbal (Numeric Rating or Visual Analog Scale) Pain Level 9 Pain Location Back-Lower Back-Lower Description Aching;Burning Duration Units Years Minutes Frequency Intermittent Intermittent Intervention/Comfort measure Medication;Reposition;Relaxation ;Cold;Exercise;Heat;Massage;Posi tioning;Therapeutic techniques-CPRP Medication;Reposition;Exercise;H eat;Massage;Rocking/holding Compliance: PDMP website checked and validated on 12/22/2023 by Ysahira Gonsales APRN.EXPORT 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 All prescriptions have been APPROPRIATELY filled. No suspicious activity was identified. Risk Assessment: MOHINDER-7: 09/23/2023 MOHINDER - 7 SCORES Score 0 (0-4) minimal anxiety, (5-9) mild anxiety, (10-14) moderate anxiety, (15-21) severe anxiety PHQ-9: 09/23/2023 PHQ-9 Score 0 (0-4) minimal depression, (5-9) mild depression, (10-14) moderate depression, (15-19) moderately severe depression, (20-27) severe depression Diagnostic Studies: Relevant Imaging: MRI Spine Report MRI LUMBAR SPINE WO IVCON Exam End: 11/19/2023 12:39 PM (Final result) Narrative: * * *Final Report* * * DATE OF EXAM: Nov 19 2023 12:39PM BRM [id number] - MRI LUMBAR SPINE WO IVCON / PROCEDURE REASON: Spinal 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 * * * * Physician Interpretation * * * * EXAMINATION: MRI LUMBAR SPINE WO IVCON Clinical history provided by the ordering clinician via order question and clinical decision support entries: Spinal stenosis, spondylolisthesis, radiculopathy, trauma. Spinal stenosis, lumbar. Spinal 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. Stated history: stenosis, fall, lbp, no prev. TECHNIQUE: Routine lumbosacral spine MR protocol without gadolinium. MQ: [id number] COMPARISON: 09/02/[address] RESULT: Counting reference: Lumbosacral junction. For the purposes of this report, L4-5 is considered the level of the iliac crest and assume there are 5 lumbar-type vertebrae. Anatomic variant: None. Alignment: Alignment is anatomic. Bone marrow signal/fracture: Moderate generalized edema throughout the L1 vertebral body associated with a ventral superior endplate predominant compression fracture deformity with approximately 20% ventral loss of vertebral body height. Incidental small vertebral body hemangioma along the dorsal right upper margin of the L2 vertebral body. Type II degenerative endplate changes at L2-L3 most pronounced along the right ventral margin. Mild type I degenerative endplate changes along the dorsal midline and left dorsolateral margin of L3-L4. Chronic nondisplaced right L5 pars defect and questionable integrity of the left L5 pars interarticularis. Conus: Normal in signal and morphology terminating at the level of the mid L1 vertebral body. Soft tissues: The dorsal paraspinal soft tissues are within normal limits. The paravertebral soft tissues are unremarkable. Imaged portions of the intra-abdominal intrapelvic contents demonstrate no significant findings. T11-T12: Canal and foramina are patent. T12-L1: Canal and foramina are patent. L1-L2: Prominent epidural lipomatous tissue mild to moderately effacing the thecal sac, but otherwise no substantial superimposed spinal canal or neuroforaminal stenosis. L2-L3: Prominent epidural lipomatous tissue with superimposed disc bulge and endplate osteophyte formation with resultant severe effacement of the thecal sac. Endplate osteophyte formation and facet arthropathy contributes to no more than mild left and no substantial right foraminal stenosis. L3-L4: Prominent epidural lipomatous tissue with superimposed disc bulge, endplate osteophyte formation, and facet arthropathy contributing to severe effacement of the thecal sac and mild left and no substantial right foraminal stenosis. L4-L5: Prominent epidural lipomatous tissue with disc bulge, endplate osteophyte formation, facet arthropathy contributing to no more than mild thecal sac effacement and no more than mild bilateral foraminal stenosis. L5-S1: Prominent epidural lipomatous tissue in conjunction with disc bulge, endplate osteophyte formation, and facet arthropathy contributing to mild to moderate thecal sac effacement and moderate right and mild left foraminal stenosis. Sacrum and iliac wings: The visualized sacrum and iliac wings are within normal limits. The presacral soft tissues are normal in appearance. Localizer images: Circumscribed subcentimeter T2 hyperintense focus in the posterior right hepatic lobe suggesting a small cyst or hemangioma. Impression: IMPRESSION: Subacute compression fracture deformity of the L1 ventral superior endplate with approximately 20% height loss and moderate generalized edema, but no convincing underlying pathologic marrow replacement. Diffuse lumbar epidural lipomatous hypertrophy with superimposed degenerative changes with resultant thecal sac narrowing being most pronounced and severe at L2-L3 and L3-L4. Neuroforaminal stenosis most pronounced and moderate in severity on the right at L5-S1. 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 Anatomic Thoracic/Lumbar Variant: None. L4-5 is considered the level of the iliac crest and assume there are 5 lumbar-type vertebrae. Package Winder: PSCB Transcribe Date/Time: Nov 19 2023 3:30P Dictated by : MECHELLE EDMONDSON MD This examination was interpreted and the report reviewed and electronically signed by: MECHELLE EDMONDSON MD on Nov 19 2023 3:44PM EST Electrodiagnostic Study (EMG): None Recent Labs: Creatinine Date Value Ref Range Status 12/02/2023 0.90 0.73 - 1.22 mg/dL Final No results found for: GFR No results found for: PCGLUCOSE Current Medications, Past Medical History, Past Surgical History, Family History & Social History: Reviewed on today's date. Review of Systems: Reviewed on today's date. Pertinent Positives: MSK - pain in the region being treated Neuro: no weakness or numbness in the region being treated Skin: Negative (No itching) Eyes: Negative (No blurred or double vision) Respiratory: Negative (No Cough, Drdefvzkz-bo-xloygb, Dyspnea on exertion, wheezing) Cardiovascular: Negative (No Chest Pain, Tightness, Pressure, Palpitations) Gastrointestinal: Negative (No Abdominal pain, Nausea, Vomiting, Constipation, Diarrhea) Genitourinary: Negative (No dysuria) Hematologic: Negative (No bleeding, bruising) OB: is Denied or Not Applicable Endocrine: Negative (No hot/cold intolerance) Psychiatric: Negative (No depression, anxiety or suicidal ideation) Physical Exam: 12/21/231910 Weight: 126.1 kg (278 lb) Height: 170.2 cm (5' 7) VIDEO EXAM: (if completed, performed via video enabled technology) No exam performed Audio only IMPRESSION: 63 year old male presents with complaint(s) of lumbar spondylosis. 12/16/23 BL MBB #1L3-4 and L4-5. Patient reports 80 % relief from procedure with pain score of 0/10 for 3-4 hours length of time Diagnoses: (M47.816) Lumbar spondylosis (primary encounter diagnosis) PLAN: Elis Tim Sanju would benefit from the following to reach personal goals for decreasing pain, improving function and work participation, and/or improving quality of life: Medications: No Changes - Continue Current Medications Interventional Procedures: None Studies: None Functional Christianity: NONE Referrals: No additional considerations at present Follow-up: appeal letter Depending on response to the above plan, consider: TBD Compliance and Clinic Policies Reviewed and/or Discussed Today: None Attribution: In addition to reviewing the information noted above, some elements copied from my most recent clinical note(s), including the physical exam (completed in entirety today), and the impression and plan sections, have been updated where appropriate. All reflect current medical decision making from today's date. I spent a total of 20 minutes on the date of the service which included preparing to see the patient, completing clinical documentation, obtaining and/or reviewing separately obtained history, performing a medically appropriate examination, and counseling and educating the patient/family/caregiver. Yashira Gonsales APRN.CNP Pain Management [facility] documented in this encounter [facility] 12-22-2023 Note HNO ID: [id number] Author: YASHIRA GONSALES APRN.CNP Service: ? Author Type: Nurse Practitioner Type: Progress Notes Filed: 12/22/2023 15:52 Note Text: VIRTUAL VISIT PROGRESS NOTE This is a virtual visit using Audio only It required patient-provider interaction for the medical decision making as documented below. I have communicated my name and active licensure. The patient's identity and physical location were verified at the time of this visit. Either the patient or their legal ict sales representative has been informed of the risks and benefits of -- and alternatives to -- treatment through a remote evaluation and consents to proceed with the evaluation remotely. [facility] Today's Date:12/22/23 Name: Elis Bills : 1960 Purpose: Post-Procedure Evaluation (Telemedicine) Chief complaint: low back pain Referring Clinician: Pertinent Past Medical History: COPD, Obesity, HTN, HLD, CVA Pertinent Past Surgeries: B/L THR This is a virtual visit via Zoom, Phone and/or [employer] Mobile[employer]. It required patient-provider interaction for the medical decision making as documented below. Patient understands that privacy cannot be guaranteed. Note: Examination was limited today due to this being a virtual/telemedicine encounter Interval History: Overall pain and functional disability since last visit: unchanged New Complaints since last visit:no 12/16/23 BL MBB #1L3-4 and L4-5. Patient reports 80 % relief from procedure with pain score of 0/10 for 3-4 hours length of time. Patient reports improved quality of life and increase in ability to perform ADL's. Letter for #2 MBB appeal Current Pain Medications: Neuropathics: NSAIDS: Muscle Relaxants: Topicals: Other Prescription or OTC Pain Medications: Opioids (when applicable): Greenlight Questionnaire GREENLIGHT Completed Date 09/23/2023 Opioid Risk Tool Opiod Risk Tool Date Completed 09/23/2023 Comments 0 MOHINDER-7 Anxiety Score 0 Completed Date 09/23/2023 PHQ9P Score 0 Completed Date 09/23/2023 Anti-depressants or Mood-Stabilizers: None Anti-Coagulants: Plavix Therapies Attended (Current or Most Recent): 12 sessions PT 09/23/2023 AG SPINE COMBINATION Questionnaire GREENLIGHT Completed Date 09/23/2023 Questionnaire Opiod Risk Tool Completed Date 09/23/2023 Comments 0 No question data found. (All drug screens are appropriate unless indicated otherwise) Notable Events During Course of Treatment: 09/22/2023 - Initial HPI (Obtained by Bertha Schumacher CNP). DURATION AND ONSET: The pain complaint has been present for approximately 9 months. The pain had a sudden onset. The mechanism of injury is unknown. RED FLAG SYMPTOMS: denies red flags. PAIN DESCRIPTION: Timing: Intermittent Character: Burning, Sharp, Stabbing Primary Location: low back Radiation: none Exacerbating factors: Walking, getting up from a seated position Relieving factors: Sitting Interferes with: physical activity and work Patient is here today complaining of low back pain without radicular symptoms. Patient stating that he has had an x-ray of his lumbar spine but no MRI. Patient stating that he has had an injection into his low back, with no relief. Patient states he did not care for the explanation of the next plan of care from this provider and so he is changing pain management. Patient has done recent physical therapy. 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 States he is fine until he starts walking or moving and then the pain increases. States he is fine at sitting. Patient states he was prescribed tramadol and it is not helping at all with his pain so he stopped use. Patient is also on Plavix and is aware that he cannot take NSAIDs. Patient is here to see what can be done for his back pain as it is interfering with his activities of daily living and his work. Treatment History: PAIN PROCEDURES: DATE PROCEDURE IMPROVEMENT 12/16/23 MBB #1 BL L3-4 and L4-5. 80% MEDICATIONS Taken TO DATE (for the chief complaint(s)): Neuropathics: None NSAIDS: unable to take, on plavix, states he did take in the past with relief. Muscle Relaxants: None Topicals: None Other Prescription or OTC Pain Medications: Tylenol (Acetaminophen) Opioids: Tramadol Data Reviewed Today: Allergies: ALLERGIES Allergen Reactions Penicillins Unknown Social History Tobacco Use Smoking status: Every Day Packs/day: .5 Types: Cigarettes Smokeless tobacco: Never Vaping Use Vaping Use: Never used Substance Use Topics Alcohol use: Yes Comment: 6 pack a day Drug use: Never 12/16/2023 12/18/2023 INTAKE PAIN ASSESSMENT Are you having pain associated with your visit today? Yes, Provider notified Yes, Provider notifi (more content not included)... [facility] 12-22-2023 Instructions Yashira Gonsales APRN.EXPORT 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 - 12/22/2023 3:52 PM EDT Ice and heat as tolerated Activity as tolerated documented in this encounter [facility] 12-17-2023 Telephone encounter Note Cutesy call made to follow-up after procedure. No answer, unable to leave a message. Greta Guillen LPN [facility] 12-17-2023 Miscellaneous Notes Cutesy call made to follow-up after procedure. No answer, unable to leave a message. Greta Guillen LPN documented in this encounter [facility] 12-16-2023 Note HNO ID: [id number] Author: DHIRAJ HERR MD Service: ? Author Type: Physician Type: Progress Notes Filed: 12/16/2023 12:55 Note Text: [facility] Date: 12/16/2023 Patient name: Elis Bills Physician performing procedure: Dhiraj Herr MD Diagnosis: (M47.816) Lumbar spondylosis (primary encounter diagnosis) Procedure: Medial Branch Block (Diagnostic only, NO STEROIDS) under fluoroscopic guidance BILATERAL SIDES at L3-4 and L4-5 Injectate: A total of 6 ml volume was injected The injectate consisted of: 6 ml of 0.75% Bupivacaine Comments: Discussed with Bertha Schumacher, first set of MBB not effective at L4-5 , L5-S1, therefore today the level was adjusted to L3-4 and L4-5. Improvement after today's procedure: as per nursing report HPI: Elis Bills is a 63 year old year old male who presents today, in pain, for the procedure noted above. Review of Systems: Pertinent Positives: MSK: pain in the region being treated Neuro: no weakness or numbness in the region being treated Skin: Negative (No itching) Eyes: Negative (No blurred or double vision) Respiratory: Negative (No Cough, Qdzqjkrvh-st-nkdhmt, Dyspnea on exertion, wheezing) Cardiovascular: Negative (No Chest Pain, Tightness, Pressure, Palpitations) Gastrointestinal: Negative (No Abdominal pain, Nausea, Vomiting, Constipation, Diarrhea) Genitourinary: Negative (No dysuria) Hematologic: Negative (No bleeding, bruising) OB: is Denied or Not Applicable Endocrine: Negative (No hot/cold intolerance) Psychiatric: Negative (No depression, anxiety or suicidal ideation) PAST MEDICAL HISTORY Diagnosis Date COPD (chronic obstructive pulmonary disease) (HCC) Hypercholesteremia Stroke (HCC) History reviewed. No pertinent surgical history. FAMILY HISTORY Problem Relation Age of Onset No Known Problems Mother Leukemia Father Social History Tobacco Use Smoking status: Every Day Packs/day: .5 Types: Cigarettes Smokeless tobacco: Never Vaping Use Vaping Use: Never used Substance Use Topics Alcohol use: Yes Comment: 6 pack a day Drug use: Never Current Outpatient Medications on File Prior to Visit Medication Sig mometasone-formoterol (DULERA) 200-5 mcg/actuation inhaler Inhale 2 Puffs as instructed two times a day. albuterol (PROVENTIL) 2.5 mg /3 mL (0.083 %) nebulizer solution Use 3 mL via nebulizer every 4 hours as needed for wheezing/shortness of breath. Inhale over 5-15 minutes guaiFENesin (MUCINEX) 600 mg 12 hr tablet Take 1 tablet by mouth every 12 hours. thiamine (VITAMIN B1) 100 mg tablet Take 1 tablet by mouth three times a day. tiotropium bromide (SPIRIVA RESPIMAT) 2.5 mcg/actuation inhaler Inhale 2 Puffs as instructed once daily. atorvastatin (LIPITOR) 80 mg tablet Take 80 mg by mouth once daily. albuterol HFA (PROVENTIL HFA, VENTOLIN HFA) 90 mcg/actuation inhaler Inhale 2 Puffs as instructed every 4 hours as needed for wheezing/shortness of breath. montelukast (SINGULAIR) 10 mg tablet Take 1 tablet by mouth daily at bedtime. budesonide (PULMICORT) 0.5 mg/2 mL nebulizer solution Use 2 mL via nebulizer two times a day. lisinopril 2.5 mg tablet Take 2.5 mg by mouth once daily. clopidogrel (PLAVIX) 75 mg tablet Take 75 mg by mouth once daily. OMEPRAZOLE (PRILOSEC ORAL) Take 10 mg by mouth as needed. Unsure of dose MEDICATION, NON-DATABASE OTC cold med nicotine polacrilex (NICORETTE) 4 mg gum Take 1 Each by mouth as needed. (Patient not taking: Reported on 12/16/2023) No current facility-administered medications on file prior to visit. Objective Exam: Vitals: As per nursing documentation Constitutional: Normal Appearance, Oriented to Time, Place and Person Head: No lacerations, no external signs of trauma Eyes: Conjunctiva clear. No discharge from the eyes Cardiovascular: Appears well-perfused Pulmonary: Non-labored respirations Abdominal: Non-distended Skin: No visible rashes or ecchymosis Psychiatric: Mood appropriate for given condition Neurological: Gross movements are limited by pain, but otherwise unremarkable Data Reviewed: Nursing note and vitals reviewed. Additional imaging reviewed as appropriate Assessment and Plan: As noted above [place] protocol documentation / Pre-Procedure Checklist: Consent: Obtained in writing prior to procedure I had a nice discussion with the patient today about their current pain and the pathology that could be causing it We discussed different treatment options, including risks, benefits and alternatives. We agreed to proceed as previously discussed, or the plan was modified in accordance with the comments noted above Unless stated otherwise in the procedure note, the risks include but are not limited to infection, allergic reaction, increased pain, lack of therapeutic benefit, steroid reaction, nerve damage, paral (more content not included)... [facility] 12-16-2023 History of Present illness Narrative [facility] Date: 12/16/2023 Patient name: Elis Bills Physician performing procedure: Dhiraj Herr MD Diagnosis: (M47.816) Lumbar spondylosis (primary encounter diagnosis) Procedure: Medial Branch Block (Diagnostic only, NO STEROIDS) under fluoroscopic guidance BILATERAL SIDES at L3-4 and L4-5 Injectate: A total of 6 ml volume was injected The injectate consisted of: 6 ml of 0.75% Bupivacaine Comments: Discussed with Bertha Schumacher, first set of MBB not effective at L4-5 , L5-S1, therefore today the level was adjusted to L3-4 and L4-5. Improvement after today's procedure: as per nursing report HPI: Elis Bills is a 63 year old year old male who presents today, in pain, for the procedure noted above. Review of Systems: Pertinent Positives: MSK: pain in the region being treated Neuro: no weakness or numbness in the region being treated Skin: Negative (No itching) Eyes: Negative (No blurred or double vision) Respiratory: Negative (No Cough, Pfujdtjvr-bn-piklod, Dyspnea on exertion, wheezing) Cardiovascular: Negative (No Chest Pain, Tightness, Pressure, Palpitations) Gastrointestinal: Negative (No Abdominal pain, Nausea, Vomiting, Constipation, Diarrhea) Genitourinary: Negative (No dysuria) Hematologic: Negative (No bleeding, bruising) OB: is Denied or Not Applicable Endocrine: Negative (No hot/cold intolerance) Psychiatric: Negative (No depression, anxiety or suicidal ideation) PAST MEDICAL HISTORY Diagnosis Date COPD (chronic obstructive pulmonary disease) (HCC) Hypercholesteremia Stroke (HCC) History reviewed. No pertinent surgical history. FAMILY HISTORY Problem Relation Age of Onset No Known Problems Mother Leukemia Father Social History Tobacco Use Smoking status: Every Day Packs/day: .5 Types: Cigarettes Smokeless tobacco: Never Vaping Use Vaping Use: Never used Substance Use Topics Alcohol use: Yes Comment: 6 pack a day Drug use: Never Current Outpatient Medications on File Prior to Visit Medication Sig mometasone-formoterol (DULERA) 200-5 mcg/actuation inhaler Inhale 2 Puffs as instructed two times a day. albuterol (PROVENTIL) 2.5 mg /3 mL (0.083 %) nebulizer solution Use 3 mL via nebulizer every 4 hours as needed for wheezing/shortness of breath. Inhale over 5-15 minutes guaiFENesin (MUCINEX) 600 mg 12 hr tablet Take 1 tablet by mouth every 12 hours. thiamine (VITAMIN B1) 100 mg tablet Take 1 tablet by mouth three times a day. tiotropium bromide (SPIRIVA RESPIMAT) 2.5 mcg/actuation inhaler Inhale 2 Puffs as instructed once daily. atorvastatin (LIPITOR) 80 mg tablet Take 80 mg by mouth once daily. albuterol HFA (PROVENTIL HFA, VENTOLIN HFA) 90 mcg/actuation inhaler Inhale 2 Puffs as instructed every 4 hours as needed for wheezing/shortness of breath. montelukast (SINGULAIR) 10 mg tablet Take 1 tablet by mouth daily at bedtime. budesonide (PULMICORT) 0.5 mg/2 mL nebulizer solution Use 2 mL via nebulizer two times a day. lisinopril 2.5 mg tablet Take 2.5 mg by mouth once daily. clopidogrel (PLAVIX) 75 mg tablet Take 75 mg by mouth once daily. OMEPRAZOLE (PRILOSEC ORAL) Take 10 mg by mouth as needed. Unsure of dose MEDICATION, NON-DATABASE OTC cold med nicotine polacrilex (NICORETTE) 4 mg gum Take 1 Each by mouth as needed. (Patient not taking: Reported on 12/16/2023) No current facility-administered medications on file prior to visit. Objective Exam: Vitals: As per nursing documentation Constitutional: Normal Appearance, Oriented to Time, Place and Person Head: No lacerations, no external signs of trauma Eyes: Conjunctiva clear. No discharge from the eyes Cardiovascular: Appears well-perfused Pulmonary: Non-labored respirations Abdominal: Non-distended Skin: No visible rashes or ecchymosis Psychiatric: Mood appropriate for given condition Neurological: Gross movements are limited by pain, but otherwise unremarkable Data Reviewed: Nursing note and vitals reviewed. Additional imaging reviewed as appropriate Assessment and Plan: As noted above [place] protocol documentation / Pre-Procedure Checklist: Consent: Obtained in writing prior to procedure I had a nice discussion with the patient today about their current pain and the pathology that could be causing it We discussed different treatment options, including risks, benefits and alternatives. We agreed to proceed as previously discussed, or the plan was modified in accordance with the comments noted above Unless stated otherwise in the procedure note, the risks include but are not limited to infection, allergic reaction, increased pain, lack of therapeutic benefit, steroid reaction, nerve damage, paralysis, stroke, epidural hematoma, syncope, headache, respiratory or cardiac arrest, pneumothorax, and scar formation Once the plan was agreed upon, the patient gave written consent to proceed and was transported into the procedure room Surgical/Procedure pause or Time Out : Time Out was led by the physician in the procedure room, with the patient and all staff present and participating The following information was verified during the Time Out process: Patient name, patient date of , procedure site (marked), laterality, anticoagulants and allergies Procedure: The patient was prepped and draped in a sterile fashion in the prone position after informed consent was signed and all patient questions were answered including the risks, benefits, alternative treatment options, and prognosis. The risks are as mentioned above, with the exception of Pneumothorax. A 22 gauge, 5 inch spinal needle was inserted a few centimeters lateral to the pedicles of the remaining lumbar levels mentioned above and advanced ventral and medial through the muscles to the target point. Once the needle contacted periosteum at the superior-most medial edge of the transverse process, the C-arm was obliqued such that the axis of the lumbar facet joints could be fluoroscopically visualized, and the correct position of the needle confirmed. After contact with periosteum and negative aspirate for blood and CSF, a 1cc volume of the injectate noted above was placed. A needle was similarly directed to the other facet joint nerves mentioned above, with completion of the procedure at each level as described above. Please see the nursing note for exact times (time out, procedure start, procedure end). After careful removal of the needle, there was minimal bleeding. The injection site was covered with appropriate sterile dressing. The patient was noted to have tolerated the procedure well and was discharged after an appropriate period of post-procedure observation. The patient was instructed to contact us if there were any complications. The patient was advised to follow-up with the requesting physician within one to two weeks or as per their requested follow-up plan. Post procedure visit summary with written instructions was offered to the patient. Dhiraj Herr MD Pain Management [facility] Review of Systems Constitutional: Positive for activity change. Negative for chills, fever and unexpected weight change. Gastrointestinal: Negative for bowel retention or incontinence Genitourinary: Negative for difficulty urinating. Negative for bladder retention or incontinence Musculoskeletal: Positive for arthralgias, back pain, gait problem and myalgias. Negative for joint swelling, neck pain and neck stiffness. Neurological: Negative for weakness, numbness and headaches. Psychiatric/Behavioral: Negative for dysphoric mood, sleep disturbance and suicidal ideas. The patient is not nervous/anxious. documented in this encounter [facility] 12-16-2023 Nurse Note Order has been placed in the patient's chart with the following parameters for discharge from the physician: Patient is alert and oriented Vitals: Diastolic/Systolic +/- 20mmHg Respirations: 12-18 Pulse: 60-100 SpO2 is greater than or equal to 90% Patient has no nausea or vomiting Patient has no dizziness Pain level is +/- 2 from initial evaluation Dressing, dry and intact with no evidence of bleeding Criteria has been met, patient is okay to be discharged per the physician. Physician has gone in and evaluated the patient. Dressing dry and intact. No drainage noted. The patient denies nausea, numbness, tingling, weakness, shortness of breath, dizziness, or headache. Pain level 0/10. Vital signs within normal limits. Patient denied needing walked out by clinical staff and denied needing a wheelchair. Patient given discharge instructions and sent to transportation via ambulatory method. Patient left in good condition. [facility] 12-16-2023 Nurse Note Order has been placed in the patient's chart with the following parameters for discharge from the physician: Patient is alert and oriented Vitals: Diastolic/Systolic +/- 20mmHg Respirations: 12-18 Pulse: 60-100 SpO2 is greater than or equal to 90% Patient has no nausea or vomiting Patient has no dizziness Pain level is +/- 2 from initial evaluation Dressing, dry and intact with no evidence of bleeding Criteria has been met, patient is okay to be discharged per the physician. Physician has gone in and evaluated the patient. Dressing dry and intact. No drainage noted. The patient denies nausea, numbness, tingling, weakness, shortness of breath, dizziness, or headache. Pain level 0/10. Vital signs within normal limits. Patient denied needing walked out by clinical staff and denied needing a wheelchair. Patient given discharge instructions and sent to transportation via ambulatory method. Patient left in good condition. Procedure to be performed: BILATERAL L3/L4, L4/L5 LUMBAR MEDIAL BRANCH BLOCK Patient was wheeled on stretcher from pre op bay to procedure room and assisted onto the procedure tablePatient s procedure was performed in an [facility] Procedure room. Pause completed at each level by provider to verify correct level and laterality placement Pressure was applied to patient s injection site(s) and bleeding was minimal. Patient had no complaint of shortness of breath, dizziness, headache, numbness, tingling, weakness or complications from procedure. Patient was assisted from the procedure table onto the stretcher and wheeled into a post op bay. Patient was advised a clinician will be to obtain another set of vitals. Time Out: 1044 Confirmed patient name, date of , procedure site, laterality, and allergies Procedure Start: 1047 Procedure End: 1051 Vascular Radiologist's Name: mehreen Are you on a blood thinner: plavix If yes, is a hold required: n Last dose of blood thinner: n INR Result today: n Do you require a Lovenox bridge:n Are you a diabetic:n Are you/or could you be : n Are you taking Xanax for the procedure: n Are you currently on a steroid? n Are you currently on an antibiotic: n Have you had a COVID-19 vaccine in the last 14 days Or are you scheduled to receive one? n documented in this encounter [facility] 12-16-2023 Instructions Jael Lamas LPN - 12/16/2023 10:38 AM EDT PROCEDURE DISCHARGE INSTRUCTIONS 12/16/2023 Elis Bills 1960 Physician: Dhiraj Herr MD Procedure: BILATERAL L4/L5, L5/S1 LUMBAR MEDIAL BRANCH BLOCK Post Procedure Instructions: If sedation not given, no driving for 3 hours after the procedure., Perform activities that typically make you have pain and monitor your pain level during these activities for the next 3-4 hours., Apply cold compresses to injection site if needed., If medically acceptable, take over the counter anti-inflammatories such as ibuprofen or Aleve if needed for post procedure discomfort., No hot baths, hot tubs or hot compresses for 24 hours., and Increased pain the day after the procedure may occur. If you have any of the following signs or symptoms, please call our office at Fever and/or chills Swelling and/or drainage from injection site New pain that is different than your normal pain (other than soreness at the site of the procedure) Stiff neck Shortness of breath Severe increase in pain Motor dysfunctions, such as difficulty walking, bowel or bladder dysfunction and/or incontinence Headache that is severe, light sensitive or develops when changing positions (positional headache) Nausea and/or vomiting accompanied by headache that started 24-48 hours after the procedure If you have any emergent concerns, please call 911 or go to your local emergency room. Please also contact our office to let us know you will be seeking emergency care and why. documented in this encounter [facility] 12-16-2023 Nurse Note Procedure to be performed: BILATERAL L3/L4, L4/L5 LUMBAR MEDIAL BRANCH BLOCK Patient was wheeled on stretcher from pre op bay to procedure room and assisted onto the procedure tablePatient s procedure was performed in an [facility] Procedure room. Pause completed at each level by provider to verify correct level and laterality placement Pressure was applied to patient s injection site(s) and bleeding was minimal. Patient had no complaint of shortness of breath, dizziness, headache, numbness, tingling, weakness or complications from procedure. Patient was assisted from the procedure table onto the stretcher and wheeled into a post op bay. Patient was advised a clinician will be to obtain another set of vitals. Time Out: 1044 Confirmed patient name, date of , procedure site, laterality, and allergies Procedure Start: 1047 Procedure End: 1051 [facility] 12-16-2023 Note HNO ID: [id number] Author: KALEE MAZARIEGOS LPN Service: ? Author Type: LICENSED NURSE Type: Progress Notes Filed: 12/16/2023 12:55 Note Text: Review of Systems Constitutional: Positive for activity change. Negative for chills, fever and unexpected weight change. Gastrointestinal: Negative for bowel retention or incontinence Genitourinary: Negative for difficulty urinating. Negative for bladder retention or incontinence Musculoskeletal: Positive for arthralgias, back pain, gait problem and myalgias. Negative for joint swelling, neck pain and neck stiffness. Neurological: Negative for weakness, numbness and headaches. Psychiatric/Behavioral: Negative for dysphoric mood, sleep disturbance and suicidal ideas. The patient is not nervous/anxious. [facility] 12-16-2023 Nurse Note Vascular Radiologist's Name: mehreen Are you on a blood thinner: plavix If yes, is a hold required: n Last dose of blood thinner: n INR Result today: n Do you require a Lovenox bridge:n Are you a diabetic:n Are you/or could you be : n Are you taking Xanax for the procedure: n Are you currently on a steroid? n Are you currently on an antibiotic: n Have you had a COVID-19 vaccine in the last 14 days Or are you scheduled to receive one? n T [facility] 12-14-2023 Telephone encounter Note Patient Last Name SANJU Patient First Name ELIS Dumont Date of 1960 Clinical Clearance / Financial Clearance Status Pending Clinical Clearance Notifications are supported by our rocael policy and used when an immediate payer source is not available. The CCN process can allow cases to be completed while still working to obtain payer s authorization due to urgency or medical necessity. This process should not preclude us from completing the steps needed to secure authorization such us P2P and appeal as this will still allow us to receive the appropriate reimbursement. Denial Overview Denial Type Payer Clinical Guidelines Not Met Denial Rationale Based on the clinical information submitted by your healthcare professional for treatment of your back pain, criteria required and not met includes documentation of at least 80% relief with the first injection and imaging studies physical exam findings have ruled out other causes of spinal pain i.e herniated disc, stenosis, fracture, or tumor. Therefore, in the absence of required referenced criteria, your request is denied. Date of Service 12/31/2023 Is Peer to Peer Available? (Instructions below) Yes Peer to Peer Deadline until 12/20/2023 Appeal Deadline (Instructions below) 180 days from the denial date 12/06/2023 Insurance Case Information Insurance Name MARANDA Patient's Insurance Case# [id number] Ordering Provider Bertha Schumacher Approved Services N/A Denied Services 12858 - NJX DX/THER AGT PVRT FACET JT LMBR/SAC 1 LEVEL 49399 - NJX DX/THER AGT PVRT FACET JT LMBR/SAC 2ND LEVEL Alternative Recommendation N/A *Service which can be approved in place of denied service. Clinical Documentation Provided [facility] 11/25/2023, 10/29/2023 FOLLOW UP APPOITNMENT WHEN PROVIDED SPECIFIED 12/02/2023 XR CHEST 1V FRONTAL 12/01/2023 MRI LUMBAR SPINE WO IVCON 11/19/2023 Peer to Peer Instructions Peer to Peer , options: 1-2 Does Peer to Peer need to be scheduled? Yes Who can complete the Peer to Peer? Dr, PA, ENVIRONMENTAL COMPLIANCE TECHNICIAN, LN Additional Peer to Peer Instructions You can call for the peer to peer at the date and time of your convenience Appeal Instructions Appeal Address [address] [address], [facility], [address] Appeal Fax# No fax# available Required Form(s) Yes, Please see attached or can be found at [email or web address] ([employer]). Additional Appeal Instructions Send it attention to: Appeals department. Include: coversheet with patient's and case information, a formal appeal letter and attach any pertinent supporting clinical documentation. Also, insurance requires a formal appeal form filled out if you would like to submit a written appeal. Facility Information Location [facility] [id number] Tax ID# [id number] [facility] 12-14-2023 Miscellaneous Notes Patient Last Name SANJU Patient First Name ELIS Dumont Date of 1960 Clinical Clearance / Financial Clearance Status Pending Clinical Clearance Notifications are supported by our rocael policy and used when an immediate payer source is not available. The CCN process can allow cases to be completed while still working to obtain payer s authorization due to urgency or medical necessity. This process should not preclude us from completing the steps needed to secure authorization such us P2P and appeal as this will still allow us to receive the appropriate reimbursement. Denial Overview Denial Type Payer Clinical Guidelines Not Met Denial Rationale Based on the clinical information submitted by your healthcare professional for treatment of your back pain, criteria required and not met includes documentation of at least 80% relief with the first injection and imaging studies physical exam findings have ruled out other causes of spinal pain i.e herniated disc, stenosis, fracture, or tumor. Therefore, in the absence of required referenced criteria, your request is denied. Date of Service 12/31/2023 Is Peer to Peer Available? (Instructions below) Yes Peer to Peer Deadline until 12/20/2023 Appeal Deadline (Instructions below) 180 days from the denial date 12/06/2023 Insurance Case Information Insurance Name MARANDA Patient's Insurance Case# [id number] Ordering Provider Bertha Schumacher Approved Services N/A Denied Services 90942 - NJX DX/THER AGT PVRT FACET JT LMBR/SAC 1 LEVEL 07789 - NJX DX/THER AGT PVRT FACET JT LMBR/SAC 2ND LEVEL Alternative Recommendation N/A *Service which can be approved in place of denied service. Clinical Documentation Provided [facility] 11/25/2023, 10/29/2023 FOLLOW UP APPOITNMENT WHEN PROVIDED SPECIFIED 12/02/2023 XR CHEST 1V FRONTAL 12/01/2023 MRI LUMBAR SPINE WO IVCON 11/19/2023 Peer to Peer Instructions Peer to Peer , options: 1-2 Does Peer to Peer need to be scheduled? Yes Who can complete the Peer to Peer? Dr, PA, ENVIRONMENTAL COMPLIANCE TECHNICIAN, LN Additional Peer to Peer Instructions You can call for the peer to peer at the date and time of your convenience Appeal Instructions Appeal Address [address] [address], [facility], [address] Appeal Fax# No fax# available Required Form(s) Yes, Please see attached or can be found at [email or web address] ([employer]). Additional Appeal Instructions Send it attention to: Appeals department. Include: coversheet with patient's and case information, a formal appeal letter and attach any pertinent supporting clinical documentation. Also, insurance requires a formal appeal form filled out if you would like to submit a written appeal. Facility Information Location [facility] [id number] Tax ID# [id number] documented in this encounter [facility] 12-01-2023 Note HNO ID: [id number] Author: DEE GARCIA RN Service: Care Management Author Type: Registered Nurse Type: Care Mgt Initial Assessment Filed: 12/01/2023 15:44 Note Text: CARE MANAGEMENT: ASSESSMENT AND DISCHARGE PLAN SERVICE DATE: December 01, 2023 SERVICE TIME: 3:38 PM PCP: Pilar Steele DO Primary Contact: Extended Emergency Contact Information Primary Emergency Contact: Mehreen Bills Mobile Relation: Spouse Admission Status: Observation Insurance Provider: [employer] PPO Discharge Planning requested by: Potential Transition Plans No Services Indicated Advance Directives Current Advance Directive: None Platen Grinder Attempted to Assist with AD Completion: Yes Action: Education Provided Current Living Arrangements and Support Lives with: Spouse/significant other Type of Residence: Private Residence (House) Does the patient have to climb stairs at home?: stairs outside the home Support: Family members How do you manage to accomplish the following: Independent: Ambulation;Bathe/Shower;Dress;Go ing to the bathroom;Medication Management;Transportation to appointments/community Needs Assistance: Meals/Meal Prep Current Services/Equipment Discharge Planning Patient Goal(s): [place] Explained: Are you interested in bedside delivery of your medications? No Discharge Planning Participant(s): Patient Patient/Family Comments: Caregiver Assessment: Caregiver is ready, willing and able to meet the patient's needs as recommended by the inter-professional team: No Caregiver needed Transport at Discharge: Needs Prior to Discharge: Needs Prior to Discharge: To Be Determined Post-Acute Discharge Plan: Met with pt at bedside. Pt on room air, sitting on eob, no c/o. Pt admitted with c/o sob, COPD exacerbation- IV steroids, IV antibx. 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 He uses a nebulizer and inhalers at home. His pcp is Dr Steele and he sees Pulmonary in [place]. He stated he has upcoming appts for spots on lung. His support is his but verbalizes stress with his work and has trouble sleeping at night. He has rx coverage and denies any financial concerns. Discussed scheduling sleep study at [facility]. Pt declined- he stated his is scheduling a Home sleep study through [facility]. Will follow SIGNATURE: Dee Garcia RN PATIENT NAME: Elis Bills DATE: December 01, 2023 TIME: 3:37 PM CONTACT #: [phone] [facility] 11-29-2023 Telephone encounter Note Received a voicemail from patient's as well. I have called her back. I am very confused as to who had contact them about needing the dosage on the blood thinner. There is no notes in this patient's chart about this. Patient is on Plavix but he does not need to hold this prior to his Lumbar MBB's. Patient has been scheduled for the Lumbar MBB's. Vivian Fried [facility] 11-29-2023 Miscellaneous Notes Received a voicemail from patient's as well. I have called her back. I am very confused as to who had contact them about needing the dosage on the blood thinner. There is no notes in this patient's chart about this. Patient is on Plavix but he does not need to hold this prior to his Lumbar MBB's. Patient has been scheduled for the Lumbar MBB's. Vivian Fried documented in this encounter [facility] 11-26-2023 Telephone encounter Note Patient was called and spoke with. Patient is going to have his call later to schedule the appointment since he was placed on a blood thinner and is 100% sure what it is. Toya Tucker [facility] 11-26-2023 Miscellaneous Notes Patient was called and spoke with. Patient is going to have his call later to schedule the appointment since he was placed on a blood thinner and is 100% sure what it is. Toya Tucker documented in this encounter [facility] 11-25-2023 Instructions Bertha Schumacher APRN.CNP - 11/25/2023 2:28 PM EDT Ice and heat as tolerated Activity as tolerated documented in this encounter [facility] 11-25-2023 History of Present illness Narrative Images from the original note were not included. VIRTUAL VISIT PROGRESS NOTE This is a virtual visit using [employer] Video Visit. It required patient-provider interaction for the medical decision making as documented below. I have communicated my name and active licensure. The patient's identity and physical location were verified at the time of this visit. Either the patient or their legal ict sales representative has been informed of the risks and benefits of -- and alternatives to -- treatment through a remote evaluation and consents to proceed with the evaluation remotely. [facility] Today's Date: 11/25/2023 Name: Elis Bills : 1960 Purpose: Follow-up Patient Evaluation - This is an established patient, returning today for continued evaluation and management of the chief complaint noted below virtual visit Chief complaint: low back pain Referring Clinician: Pertinent Past Medical History: COPD, Obesity, HTN, HLD, CVA Pertinent Past Surgeries: B/L THR History of Present Illness (HPI): 09/22/2023 - Initial HPI (Obtained by Bertha Schumacher CNP). DURATION AND ONSET: The pain complaint has been present for approximately 9 months. The pain had a sudden onset. The mechanism of injury is unknown. RED FLAG SYMPTOMS: denies red flags. PAIN DESCRIPTION: Timing: Intermittent Character: Burning, Sharp, Stabbing Primary Location: low back worse right side Radiation: none Exacerbating factors: Walking, getting up from a seated position Relieving factors: Sitting Interferes with: physical activity and work Patient is here today to discuss the results of his MRI. Patient continues to have the same pain and continues to have extreme pain with walking. Patient stating that he is having a difficult time walking 100 yards, feels he would have to sit down if I was to ask him to walk the length of time due to the pain. Current Pain Medications: Neuropathics: NSAIDS: Muscle Relaxants: Topicals: Other Prescription or OTC Pain Medications: Opioids (when applicable): No question data found. Anti-depressants or Mood-Stabilizers: None Anti-Coagulants: None, Plavix Therapies Attended (Current or Most Recent): 12 sessions of PT Treatment History: PAIN PROCEDURES: DATE PROCEDURE IMPROVEMENT To date, no interventional pain management procedures performed at this practice. MEDICATIONS Taken TO DATE (for the chief complaint(s)): Neuropathics: None NSAIDS: unable to take, on plavix, states he did take in the past with relief. Muscle Relaxants: None Topicals: None Other Prescription or OTC Pain Medications: Tylenol (Acetaminophen) Opioids: Tramadol no relief Data Reviewed Today: Allergies: ALLERGIES Allergen Reactions Penicillins Unknown Social History Tobacco Use Smoking status: Every Day Packs/day: .25 Types: Cigarettes Smokeless tobacco: Never Vaping Use Vaping Use: Never used Substance Use Topics Alcohol use: Yes Comment: 6 pack a day Drug use: Never 11/11/2023 11/23/2023 INTAKE PAIN ASSESSMENT Are you having pain associated with your visit today? No Yes, Provider notified Pain Level 9 Pain Location Back-Lower Description Sharp;Shooting Duration Units Months Frequency Continuous Intervention/Comfort measure Medication;Reposition;Relaxation ;Exercise;Heat;Massage;Pillow support;Positioning;Rocking/hold ing Compliance: PDMP website checked and validated on 11/25/2023 by Bertha Schumacher APRN.EXPORT 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 All prescriptions have been APPROPRIATELY filled. No suspicious activity was identified. 09/23/2023 AG SPINE COMBINATION Questionnaire GREENLIGHT Completed Date 09/23/2023 Questionnaire Opiod Risk Tool Completed Date 09/23/2023 Comments 0 (All drug screens are appropriate unless indicated otherwise) Risk Assessment: MOHINDER-7: 09/23/2023 MOHINDER - 7 SCORES Score 0 (0-4) minimal anxiety, (5-9) mild anxiety, (10-14) moderate anxiety, (15-21) severe anxiety PHQ-9: 09/23/2023 PHQ-9 Score 0 (0-4) minimal depression, (5-9) mild depression, (10-14) moderate depression, (15-19) moderately severe depression, (20-27) severe depression Greenlight Questionnaire GREENLIGHT Completed Date 09/23/2023 Opioid Risk Tool Opiod Risk Tool Date Completed 09/23/2023 Comments 0 MOHINDER-7 Anxiety Score 0 Completed Date 09/23/2023 PHQ9P Score 0 Completed Date 09/23/2023 Diagnostic Studies: Relevant Imaging: MRI Spine Report MRI LUMBAR SPINE WO IVCON Exam End: 11/19/2023 12:39 PM (Final result) Narrative: * * *Final Report* * * DATE OF EXAM: Nov 19 2023 12:39PM [facility] [id number] - MRI LUMBAR SPINE WO IVCON / PROCEDURE REASON: Spinal 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 * * * * Physician Interpretation * * * * EXAMINATION: MRI LUMBAR SPINE WO IVCON Clinical history provided by the ordering clinician via order question and clinical decision support entries: Spinal stenosis, spondylolisthesis, radiculopathy, trauma. Spinal stenosis, lumbar. Spinal 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. Stated history: stenosis, fall, lbp, no prev. TECHNIQUE: Routine lumbosacral spine MR protocol without gadolinium. MQ: [id number] COMPARISON: 09/02/[address] RESULT: Counting reference: Lumbosacral junction. For the purposes of this report, L4-5 is considered the level of the iliac crest and assume there are 5 lumbar-type vertebrae. Anatomic variant: None. Alignment: Alignment is anatomic. Bone marrow signal/fracture: Moderate generalized edema throughout the L1 vertebral body associated with a ventral superior endplate predominant compression fracture deformity with approximately 20% ventral loss of vertebral body height. Incidental small vertebral body hemangioma along the dorsal right upper margin of the L2 vertebral body. Type II degenerative endplate changes at L2-L3 most pronounced along the right ventral margin. Mild type I degenerative endplate changes along the dorsal midline and left dorsolateral margin of L3-L4. Chronic nondisplaced right L5 pars defect and questionable integrity of the left L5 pars interarticularis. Conus: Normal in signal and morphology terminating at the level of the mid L1 vertebral body. Soft tissues: The dorsal paraspinal soft tissues are within normal limits. The paravertebral soft tissues are unremarkable. Imaged portions of the intra-abdominal intrapelvic contents demonstrate no significant findings. T11-T12: Canal and foramina are patent. T12-L1: Canal and foramina are patent. L1-L2: Prominent epidural lipomatous tissue mild to moderately effacing the thecal sac, but otherwise no substantial superimposed spinal canal or neuroforaminal stenosis. L2-L3: Prominent epidural lipomatous tissue with superimposed disc bulge and endplate osteophyte formation with resultant severe effacement of the thecal sac. Endplate osteophyte formation and facet arthropathy contributes to no more than mild left and no substantial right foraminal stenosis. L3-L4: Prominent epidural lipomatous tissue with superimposed disc bulge, endplate osteophyte formation, and facet arthropathy contributing to severe effacement of the thecal sac and mild left and no substantial right foraminal stenosis. L4-L5: Prominent epidural lipomatous tissue with disc bulge, endplate osteophyte formation, facet arthropathy contributing to no more than mild thecal sac effacement and no more than mild bilateral foraminal stenosis. L5-S1: Prominent epidural lipomatous tissue in conjunction with disc bulge, endplate osteophyte formation, and facet arthropathy contributing to mild to moderate thecal sac effacement and moderate right and mild left foraminal stenosis. Sacrum and iliac wings: The visualized sacrum and iliac wings are within normal limits. The presacral soft tissues are normal in appearance. Localizer images: Circumscribed subcentimeter T2 hyperintense focus in the posterior right hepatic lobe suggesting a small cyst or hemangioma. Impression: IMPRESSION: Subacute compression fracture deformity of the L1 ventral superior endplate with approximately 20% height loss and moderate generalized edema, but no convincing underlying pathologic marrow replacement. Diffuse lumbar epidural lipomatous hypertrophy with superimposed degenerative changes with resultant thecal sac narrowing being most pronounced and severe at L2-L3 and L3-L4. Neuroforaminal stenosis most pronounced and moderate in severity on the right at L5-S1. 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 Anatomic Thoracic/Lumbar Variant: None. L4-5 is considered the level of the iliac crest and assume there are 5 lumbar-type vertebrae. Package Winder: [facility] Transcribe Date/Time: Nov 19 2023 3:30P Dictated by : MECHELLE EDMONDSON MD This examination was interpreted and the report reviewed and electronically signed by: MECHELLE EDMONDSON MD on Nov 19 2023 3:44PM EST Lumbar x-rays 5 views dated 02/12/2023 these show good overall alignment in the coronal and sagittal planes. Degenerative changes at multiple levels with loss of disc height disc osteophyte complex formation and facet arthrosis. Mild anterolisthesis of L5-S1. Degenerative changes of the bilateral sacroiliac joints with loss of joint space, subchondral sclerosis and osteophyte formation. Electrodiagnostic Study (EMG): None Recent Labs: No results found for: CREAT No results found for: EGFR No results found for: PCGLUCOSE Current Medications, Past Medical History, Past Surgical History, Family History, Social History and Review of Systems: On today's date, noted above, I have confirmed and edited as necessary, the PFSH and ROS obtained by others. REVIEW OF SYSTEMS: GENERAL: feeling well without fatigue, no recent change in weight HEENT: denies JIN, change in hearing or vision, no other ENT complaints NECK: denies swelling or pain in neck RESPIRATORY: no cough, no wheezing or shortness of breath CARDIOVASCULAR: no chest pain, no palpitations MUSCULOSKELETAL: Low back pain as described above. SKIN: no rash PSYCH: denies depressed or anxious mood, sleep is normal NEURO: no numbness or paresthesias and no weakness of the extremities PHYSICAL EXAMINATION: VIDEO EXAM: (if completed, performed via video enabled technology) Audio only due to technical difficulties. IMPRESSION: 63 year old male presents with complaint(s) of low back pain that appears to be axial in presentation.I reviewed the patient's MRI with the patient and his via phone. There was an issue with my chart and I was unable to see him but we were able to talk. They appear to understand the results of the MRI. Patient denies any radicular symptoms. After the review of the MRI potentially, the reason that other injection from the previous pain management provider did not work, was due to the amount of epidural lipomatosis. Patient's pain appears to be axial in presentation patient does present with multiple levels of osteophyte formation and facet arthropathy. At this point I will avoid any other steroid injections and around the epidural space due to the MRI results and the lack of results from the injection previously given. We will try medial branch nerve block to see if will help with his pain I educated the patient and his regarding the series of 2 with the goal of RFA and they appear to understand. Diagnoses: (M47.816) Lumbar spondylosis (primary encounter diagnosis) (M48.061) Spinal 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 PLAN: Elis Bills would benefit from the following to reach personal goals for decreasing pain, improving function and work participation, and/or improving quality of life: Medications: Requested Prescriptions No prescriptions requested or ordered in this encounter Interventional Procedures: Medial Branch Block (Diagnostic only, NO STEROIDS) under fluoroscopic guidance BILATERAL SIDES at L4-5 and L5-S1 Vascular Radiologist Needed: Medial Branch Blocks - YES Anticoagulants: None, Plavix (7 days when hold needed) Relevant Allergies: None Additional Info: None Studies: None Functional Christianity: NONE Referrals: No additional considerations at present Follow-up: Follow up 1-5 days after each procedure as a VV Depending on response to the above plan, consider: RFA Compliance and Clinic Policies Reviewed and/or Discussed Today: None Attribution: In addition to reviewing the information noted above, some elements copied from my most recent clinical note(s), including the physical exam (completed in entirety today), and the impression and plan sections, have been updated where appropriate. All reflect current medical decision making from today's date. Bertha Schumacher APRN.CNP Pain Management [facility] documented in this encounter [facility] 11-25-2023 Note HNO ID: [id number] Author: BERTHA SCHUMACHER APRN.CNP Service: ? Author Type: Nurse Practitioner Type: Progress Notes Filed: 11/25/2023 14:35 Note Text: VIRTUAL VISIT PROGRESS NOTE This is a virtual visit using [employer] Video Visit. It required patient-provider interaction for the medical decision making as documented below. I have communicated my name and active licensure. The patient's identity and physical location were verified at the time of this visit. Either the patient or their legal ict sales representative has been informed of the risks and benefits of -- and alternatives to -- treatment through a remote evaluation and consents to proceed with the evaluation remotely. [facility] Today's Date: 11/25/2023 Name: Elis Bills : 1960 Purpose: Follow-up Patient Evaluation - This is an established patient, returning today for continued evaluation and management of the chief complaint noted below virtual visit Chief complaint: low back pain Referring Clinician: Pertinent Past Medical History: COPD, Obesity, HTN, HLD, CVA Pertinent Past Surgeries: B/L THR History of Present Illness (HPI): 09/22/2023 - Initial HPI (Obtained by Bertha Schumacher CNP). DURATION AND ONSET: The pain complaint has been present for approximately 9 months. The pain had a sudden onset. The mechanism of injury is unknown. RED FLAG SYMPTOMS: denies red flags. PAIN DESCRIPTION: Timing: Intermittent Character: Burning, Sharp, Stabbing Primary Location: low back worse right side Radiation: none Exacerbating factors: Walking, getting up from a seated position Relieving factors: Sitting Interferes with: physical activity and work Patient is here today to discuss the results of his MRI. Patient continues to have the same pain and continues to have extreme pain with walking. Patient stating that he is having a difficult time walking 100 yards, feels he would have to sit down if I was to ask him to walk the length of time due to the pain. Current Pain Medications: Neuropathics: NSAIDS: Muscle Relaxants: Topicals: Other Prescription or OTC Pain Medications: Opioids (when applicable): No question data found. Anti-depressants or Mood-Stabilizers: None Anti-Coagulants: None, Plavix Therapies Attended (Current or Most Recent): 12 sessions of PT Treatment History: PAIN PROCEDURES: DATE PROCEDURE IMPROVEMENT To date, no interventional pain management procedures performed at this practice. MEDICATIONS Taken TO DATE (for the chief complaint(s)): Neuropathics: None NSAIDS: unable to take, on plavix, states he did take in the past with relief. Muscle Relaxants: None Topicals: None Other Prescription or OTC Pain Medications: Tylenol (Acetaminophen) Opioids: Tramadol no relief Data Reviewed Today: Allergies: ALLERGIES Allergen Reactions Penicillins Unknown Social History Tobacco Use Smoking status: Every Day Packs/day: .25 Types: Cigarettes Smokeless tobacco: Never Vaping Use Vaping Use: Never used Substance Use Topics Alcohol use: Yes Comment: 6 pack a day Drug use: Never 11/11/2023 11/23/2023 INTAKE PAIN ASSESSMENT Are you having pain associated with your visit today? No Yes, Provider notified Pain Level 9 Pain Location Back-Lower Description Sharp;Shooting Duration Units Months Frequency Continuous Intervention/Comfort measure Medication;Reposition;Relaxation ;Exercise;Heat;Massage;Pillow support;Positioning;Rocking/hold ing Compliance: PDMP website checked and validated on 11/25/2023 by Bertha Schumacher APRN.EXPORT 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 All prescriptions have been APPROPRIATELY filled. No suspicious activity was identified. 09/23/2023 AG SPINE COMBINATION Questionnaire GREENLIGHT Completed Date 09/23/2023 Questionnaire Opiod Risk Tool Completed Date 09/23/2023 Comments 0 (All drug screens are appropriate unless indicated otherwise) Risk Assessment: MOHINDER-7: 09/23/2023 MOHINDER - 7 SCORES Score 0 (0-4) minimal anxiety, (5-9) mild anxiety, (10-14) moderate anxiety, (15-21) severe anxiety PHQ-9: 09/23/2023 PHQ-9 Score 0 (0-4) minimal depression, (5-9) mild depression, (10-14) moderate depression, (15-19) moderately severe depression, (20-27) severe depression Greenlight Questionnaire GREENLIGHT Completed Date 09/23/2023 Opioid Risk Tool Opiod Risk Tool Date Completed 09/23/2023 Comments 0 MOHINDER-7 Anxiety Score 0 Completed Date 09/23/2023 PHQ9P Score 0 Completed Date 09/23/2023 Diagnostic Studies: Relevant Imaging: MRI Spine Report MRI LUMBAR SPINE WO IVCON Exam End: 11/19/2023 12:39 PM (Final result) Narrative: * * *Final Report* * * DATE OF EXAM: Nov 19 2023 12:39PM [facility] 0303 - MRI LUMBAR SPINE WO IVCON / (more content not included)... [facility] 11-23-2023 Telephone encounter Note Spoke with patient and scheduled virtual visit with Bertha Schumacher on 11/25/2023 to discuss MRI Albertina [facility] Torch to Dr. Everton Decker MD / Bertha Schumacher CNP [facility] [address] [place] [address] Phone. [phone] / Fax. [phone] [facility] 11-23-2023 Miscellaneous Notes Spoke with patient and scheduled virtual visit with Bertha Schumacher on 11/25/2023 to discuss MRI Albertina Martin [facility] Torch to Dr. Everton Decker MD / Berhta Schumacher CNP [facility] [address] [place] [address] Phone. [phone] / Fax. [phone] Hi, can you please call this pt and set up for a virtual visit with me this to discuss his MRI results? Thanks. documented in this encounter [facility] 11-21-2023 Telephone encounter Note Hi, can you please call this pt and set up for a virtual visit with me this to discuss his MRI results? Thanks. [facility] 11-19-2023 History of Present illness Narrative Radiology Service Progress Note PATIENT NAME: Elis Bills DATE OF SERVICE: November 19, 2023 TIME: 3:40 PM PATIENT IDENTITY VERIFICATION COMPLETED USING TWO (2) IDENTIFIERS: Name and Date of confirmed by patient verbally. FALL SCREENING: Has the patient had 2 falls in the last year or 1 fall with injury or currently using an Ambulatory Assistive Device (Walker, Cane, Wheelchair, Crutches, etc.)? No PATIENT GENDER DATA: Male PATIENT RELEVANT IMPLANT DATA REVIEWED: Yes. joint PATIENT PRESENTS WITH AN IMPLANTABLE OR ATTACHED PROFILE TRIMMER: No RADIOLOGY DEPARTMENT: MR; Exam(s) Completed: Spine: Lumbar spine PERIPHERAL IV DATA: Not applicable SIGNED BY: Malena Yoder A.A.S.,RT (R) (CT)(MR) November 19, 2023 3:40 PM documented in this encounter [facility] 11-11-2023 Instructions Shelton Aguilera MD - 11/11/2023 10:10 AM EDT Nice to see you today. The blood and the Chest CT scan favors you having asthma due to allergies. - will start Dulera twice daily and Spiriva daily. Keep using Budesonide twice daily. Albuterol use as needed 4-6 hours inside the house. When you go out take with your Dulera and use as needed every 4-6 hours. - montelukast 10 mg daily. - prilosec once daily - sleep study at home - heart ultrasound - allergy doctor appointment. - Please keep working on giving away the cigarettes. To obtain more information, resources and free samples for nicotine replacement therapy: Please visit the following website: https://[place].quitlogix.org/en-[place] / OR Call 0-788-EQYG-NOW (006-8571) Use patches and gum both at the same time. How to use nicotine gum For best results, follow the instructions in the package. Nicotine gum is not meant to be used like regular gum. Chew the gum slowly until you get a peppery taste or tingle. Then tuck it inside your cheek until the taste fades. Chew it to get the peppery taste back, and hold it again. Do this off and on for 20 to 30 minutes. Food and drink can affect how well the nicotine is absorbed, so don t eat or drink for at least 15 minutes before and during gum use. This is important because many people misuse the nicotine gum and chew it like regular gum instead of how it should be used. An advantage of nicotine gum is that it allows you to control the amount of nicotine you get. The gum can be used as needed or on a fixed schedule during the day. The most recent research has shown that scheduled dosing works better. A schedule of 1 to 2 pieces per hour is common. On the other hand, with an as-needed schedule, you can use it when you need it most - when you have cravings. Chew no more than 24 pieces of gum in one day. Nicotine gum is usually recommended for 6 to 12 weeks, with the maximum being 6 months. Tapering down the amount of gum you use as you approach 3 months may help you stop using it. But it is better to keep using the gum rather than starting to smoke again. Possible side effects of nicotine gum include: Bad taste Throat irritation Mouth sores Hiccups Nausea Jaw discomfort Racing heartbeat The gum may also stick to and damage dentures and dental work. Stomach and jaw discomfort are usually caused by improper use of the gum, such as swallowing the nicotine or chewing too fast. No one has all of the side effects, and some people have none. If your heart is racing or beating irregularly, stop using the gum and talk to your health care provider. You could also have nicotine withdrawal symptoms if your nicotine replacement therapy dose is too low. Nicotine patches (transdermal nicotine systems) Patches can be bought with or without a prescription. Patches give a measured dose of nicotine through the skin. You re weaned off nicotine by switching to lower-dose patches over a course of weeks. Many different types and strengths of patches are available, including 16-hour and 24-hour patches. Which patch you should use depends on how many cigarettes you smoke each day. Package instructions tell you how to use them, and list special considerations and possible side effects. How to use nicotine patches: Depending on body size and smoking habits, most people who smoke should start using a full-strength patch (15-22 mg of nicotine) daily for several weeks, and then use a weaker patch (5-14 mg of nicotine) for another several weeks. The patch is changed every day. It should be put on in the morning on a clean, dry area of the skin without much hair. It should be placed below the neck and above the waist - for instance, on the upper arm or chest. The FDA has approved using the patch for a total of 3 to 5 months, but using it longer is better than going back to smoking. Possible side effects of the nicotine patch include: Skin irritation (redness and itching) Dizziness Racing heartbeat Sleep problems or unusual dreams (more common with the 24-hour patch) Headache Nausea Muscle aches and stiffness No one has all of the side effects, and some people have none. Some side effects, such as racing heart, may mean the dose of nicotine is too high for you. Stop using the patch and talk to your health care provider if this happens. You could also have nicotine withdrawal symptoms if your nicotine patch dose is too low. What to do about side effects Try a different brand of patch if your skin becomes irritated. Reduce the amount of nicotine by using a lower-dose patch. Sleep problems may go away in 3 or 4 days. If not, and you re using a 24-hour patch, try switching to a 16-hour patch. Stop using the patch and try a different form of Nicotine replacement therapy. documented in this encounter [facility] 11-11-2023 History of Present illness Narrative Images from the original note were not included. [facility] Progress Note Mr. Bills is a 63 year old male who presents to the [facility]. Consultation requested by Dr. Pilar Steele for an opinion regarding persistent cough. My final recommendations/evaluation will be communicated back to the requesting physician by way of shared medical record or letter via US mail. INTERVAL EVENTS CAT [address] with airway wall thickening. Small lung nodules (< 6mm). IgE 124 Neg allergy panel Lung volume with air trapping. FEV1/FVC 70%. HANKS. Intermittent wheezing mostly at exercise. Persistent bouts of cough a/w wheezing. No significant sputum production Still smoking 10 cigarrettes per day. Was not able to tolerate chantix. Was only using nicotine gums. Was not using patches He is compliant to Budesonide nebs BID and albuterol nebs BID. Taking montelukast 10mg daily and prilosec daily HPI (08/20/23): 63 year old male with Chronic bronchitis Prior TIA on plavix Morbid obesity Cold in middle Jun 2024 Worsening cough Waking up at night. Wheezing Chronic cough with mild sputum production. Clear. Son has asthma. Currently on ICS.LABA (Breo 200), TIFFANIE using 5 timer per day. Mild improvement Has spells of cough with wheezing. Dyspnea for at least 1 year on exertion Smoking: started at age 24. 2 PPD for 30 years. Disease-Specific History: COPD: History of COPD: When diagnosed? 2023 (chronic bronchitis) Home Oxygen? No Smoking History: 60 PYH Baseline physical activity: Regular Exacerbations over the past 12 months? Yes. Increase in symptoms requiring change in therapy? Yes. History of Intubations: No. Hospitalizations over past 12 months? Yes. History of AAT testing? No. Respiratory ROS: HANKS: + at baseline, now + Orthopnea: none at baseline, now none PND: none at baseline, now none Pedal Edema: none at baseline, now non Weight: - at baseline, now 272 lb Cough: + at baseline, now ++ Nocturnal awakenings: + at baseline, now none. Sputum: white GERD: ++ RUSTAM: STOP_BANG positive Home O2: none Review of Systems: GEN: No fevers/chills, night sweats, or weight changes HENT: No rhinorrhea, pharyngitis, sinus drainage, congestion, or oral ulcers EYES: No sudden vision changes CV: No chest pain, palpitations RESP: As above GI: No nausea/vomiting/constipation/kimberly rrhea, no acid reflux : No dysuria, no hematuria MSK: No joint swelling NEURO: No sudden weakness or numbness SKIN: No rash PSYCH: No hallucinations Past Medical History: PAST MEDICAL HISTORY Diagnosis Date Hypercholesteremia Stroke (HCC) Past Surgical History: History reviewed. No pertinent surgical history. 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 Other environmental/occupational exposures: Pets: none Family History: FAMILY HISTORY Problem Relation Age of Onset No Known Problems Mother Leukemia Father Allergies: Penicillins Outpatient Medications: predniSONE (DELTASONE) 20 mg tablet^Take 1 tablet by mouth as directed. TID for 4 days then decrease to bid for 4 days then daily for 4 days then stop.^Disp: 24 tablet^Rfl: 0 albuterol (PROVENTIL) 2.5 mg /3 mL (0.083 %) nebulizer solution^Use 3 mL via nebulizer three times a day. Inhale over 5-15 minutes^Disp: 810 mL^Rfl: 3 montelukast (SINGULAIR) 10 mg tablet^Take 1 tablet by mouth daily at bedtime.^Disp: 90 tablet^Rfl: 3 nicotine polacrilex (NICORETTE) 4 mg gum^Take 1 Each by mouth as needed.^Disp: 300 Each^Rfl: 3 budesonide (PULMICORT) 0.5 mg/2 mL nebulizer solution^Use 2 mL via nebulizer two times a day.^Disp: 360 mL^Rfl: 3 lisinopril 2.5 mg tablet^^Disp: ^Rfl: clopidogrel (PLAVIX) 75 mg tablet^Take 75 mg by mouth once daily.^Disp: ^Rfl: atorvastatin (LIPITOR) 20 mg tablet^Take 20 mg by mouth once daily. Unsure of dose^Disp: ^Rfl: OMEPRAZOLE (PRILOSEC ORAL)^Take 10 mg by mouth as needed. Unsure of dose^Disp: ^Rfl: MEDICATION, NON-DATABASE^OTC cold med^Disp: ^Rfl: albuterol HFA (PROVENTIL HFA, VENTOLIN HFA) 90 mcg/actuation inhaler^Inhale 2 Puffs as instructed every 6 hours as needed for Wheezing/Shortness of Breath.^Disp: 1 Inhaler^Rfl: 2 tiotropium bromide (SPIRIVA RESPIMAT) 2.5 mcg/actuation inhaler^Inhale 2 Puffs as instructed once daily.^Disp: 3 Each^Rfl: 3 mometasone-formoterol (DULERA) 200-5 mcg/actuation inhaler^Inhale 2 Puffs as instructed two times a day.^Disp: 3 Each^Rfl: 3 albuterol HFA (PROVENTIL HFA, VENTOLIN HFA) 90 mcg/actuation inhaler^Inhale 2 Puffs as instructed every 4 hours as needed for wheezing/shortness of breath.^Disp: 1 Each^Rfl: 3 traMADol (ULTRAM) 50 mg tablet^^Disp: ^Rfl: (Patient not taking: Reported on 11/11/2023) varenicline (CHANTIX) 1 mg tablet^Take 0.5 tablets by mouth once daily for 3 days, THEN 0.5 tablets two times a day for 4 days, THEN 1 tablet two times a day for 23 days.^Disp: 52 tablet^Rfl: 0 (Patient not taking: Reported on 11/11/2023) varenicline (CHANTIX) 1 mg tablet^Take 1 tablet by mouth two times a day. Patient should start on September 19, 2023.^Disp: 60 tablet^Rfl: 1 (Patient not taking: Reported on 11/11/2023) nicotine (NICODERM CQ) 21 mg/24 hr^Apply 1 Patch as directed every 24 hours.^Disp: 28 Patch^Rfl: 4 (Patient not taking: Reported on 11/11/2023) celecoxib (CELEBREX) 200 mg capsule^Take 200 mg by mouth two times a day.^Disp: ^Rfl: (Patient not taking: Reported on 11/11/2023) predniSONE (DELTASONE) 20 mg tablet^Take 2 tablet by mouth daily for 5 days.^Disp: 10 tablet^Rfl: 0 (Patient not taking: Reported on 11/11/2023) Pain today: Mr. Bills is not having pain related to the reason for this visit. PHYSICAL EXAM: BP 163/91 Pulse 75 Temp (Src) 98 (Temporal Artery) Resp 20 Ht 5' 7 (1.70m) Wt 278 lb (126.1kg) SpO2 95% BMI 43.53 kg/(m^2). General appearance: large neck Skin: Normal turgor. Not pallorous. Not diaphoretic. No jaundice. Eyes: Midline. No jaundice. anicteric ENT: No palpable lymphadenopathy. Hearing intact. No gross thyromegaly. mask Heme/Lymph: No significant neck adenopathy. Lungs : ronchi bilaterally Heart: Regular rate and rhythm. Normal heart tones. BP as documented. No significant murmur. Normal P2 . Good hand perfusion. ABD: Abdomen soft, non-tender. Not visually distended. Musculoskeletal: normal gait grossly, no acute synovitis. Ext: No deformities, no edema, or skin discoloration. adequate capillary refill < 3 sec. Neuro: Nonfocal. Alert. Speech intact. No gross cerebellar dysfunction. Labs / Imaging / Diagnostic Studies: All radiography/labs listed below personally reviewed and analyzed by dc CBC with diff: No results found for this basename: WBC,RBC,HB,HCT,MCV,MCH,MCHC,RDWC V,PLT,MPV,NEUTP,LYMPHP,MONOP,EOD INP,BASOP,ABSNEUT,ABSLYM,ABSMONO ,ABSEOSIN,ABSBASO CBC with diff: No results found for: GLUC, K, NA, CHLOR, CO2, CREAT, BUN, ANION, CA PFT: Date FEV1/FVC (LLN) FEV1 % (L) FVC % (L) DLCO % (ml/min/mmHg) TLC % (L) RV % (L) 08/20/23 70% 57% (1.7 L) 64% (2.44L) 92% (24.26) 88% (5.72 L) 148% (3.24 L)) Oral Exhaled Nitric Oxide measurement (Previous Encounters) Test Date Oral Exhaled Nitric Oxide (ppb) 09/02/2023 15.0 CXR: No results found. CT Chest: Last CT/CTA Chest/Lungs CT CHEST WO IVCON Exam End: 09/02/2023 1:22 PM (Final result) Narrative: * * *Final Report* * * DATE OF EXAM: Sep 02 2023 1:21PM [facility] [place] - CT CHEST WO IVCON / PROCEDURE REASON: R06.2-Wheezing * * * * Physician Interpretation * * * * EXAMINATION: CHEST CT WITHOUT CONTRAST CLINICAL HISTORY: Wheezing Technique: Spiral CT acquisition of the chest from the thoracic inlet to the upper abdomen without contrast. MQ: [id number] CT Radiation dose: Integrated Dose-length product (DLP) for this visit = 402 mGy*cm CT Dose Reduction Employed: Automated exposure control(AEC) and iterative recon Comparison: Type of study and date/time RESULT: Lung parenchyma, airways, and pleural: No consolidation. Central airways are patent. There are multiple bilateral pulmonary nodules. Examples include (image numbers refer to series 301): 2 mm nodule lateral left upper lobe image 57. 3 mm nodule lateral right upper lobe image 82. 2 mm nodule lateral left upper lobe image 88. 3 mm nodule lateral right upper lobe image 97. 2 mm nodule posterolateral right lower lobe image 122. 3 mm nodule lateral left lower lobe image 142. No new or enlarging pulmonary nodule. Lower neck, lymph nodes, and mediastinum: The imaged thyroid gland is normal. No lymphadenopathy in the supraclavicular, axillary, mediastinal, or hilar regions. Heart, pericardium, and thoracic vessels: No pericardial effusion. Atherosclerotic calcification of the thoracic aorta and coronary arteries. Bones and soft tissues: Chest wall is unremarkable. Degenerative changes of the thoracic spine. Upper abdomen: No abnormality in the imaged upper abdomen. Auto Roller (topogram) images: No additional findings. Impression: IMPRESSION: No CT evidence of acute abnormality. _ Multiple 3 mm or less pulmonary nodules. Incidental Finding: Follow-up Acuity: Incidental Finding: Solid: <6 mm (solitary or multiple) Routing Code: N/A Recommendation: No imaging follow-up is recommended Time Frame: N/A Comments: If there are risk factors for lung malignancy, a follow-up chest CT exam could be obtained in 12 months --END OF FINDING-- Package Winder: YAIR Transcribe Date/Time: Sep 05 2023 11:40A Dictated by : WILLIAM QUINTANA MD This examination was interpreted and the report reviewed and electronically signed by: WILLIAM QUINTANA MD on Sep 05 2023 11:47AM EST No results found. Echo: No results found for this or any previous visit (from the past 95054 hour(s)). Vaccines: Immunization History Administered Date(s) Administered tetanus diphtheria pertussis (Tdap) vaccine, age 7+ yr (ADACEL, BOOSTRIX) 06/14/2023 Assessment: Mr. Bills is a 63 year old male who presents to the [facility] for evaluation of allergic asthma and tobacco use disorder. Patient has PMH of obesity, TIA 1. Lung nodules - ICD9: 793.19, ICD10: R91.8 (primary diagnosis) 2. Severe persistent asthma, unspecified whether complicated - ICD9: 493.90, ICD10: J45.50 3. Tobacco use disorder - ICD9: 305.1, ICD10: F17.200 4. Morbid obesity (HCC) - ICD9: 278.01, ICD10: E66.01 # high pretest probability for T2 phenotype asthma (IgE 127, Serina 15). Abs Eos 3. PFT showing air trapping, normal TLC. Normal FEV1/FVC but low TMH82-25. Chest CT with multiple sub<6mm lung nodules. No mediastinal LAD. Airway wall thickening. Active smoking. Good compliance with ICS/TIFFANIE - will step up to ICS/LABA/LAMA. C/w budesonide nebs BID and also start ICS/LABA (Dulera 200-5) BID, spiriva daily. - ICS/FABA (Dulera) PRN. Can use at home albuterol nebs PRN. - c/w montelukast and prilosec daily - referring to allergy to start biologic therapy if patient still symptomatic. - obtain ECHO, HSAT # tobacco use disorder. Actively smoking 2 PPD, 60 PYH, willing to quit. Down to 10 cigarrettes/day I personally spent 8 minutes counseling Elis Bills. Counseling methods included were NRT and chantix. The patient's medical condition chronic bronchitis has been adversely affected by tobacco use. The patient's response was favorable. - stopped chantix due to brain fog. - instructed again to use nicotine patch (21G) and nicotine gum (4G). - patient declined smoking cessation clinic referral # lung nodules in setting of cough evaluation. Multiple micronodules. Random pattern. There is subtle mossaic attenuation. Ddx HP? - will obtain another Chest CT in 1 year for survaillance given dominant nodule is 3 mm in size in setting of risk factors. If poor response to triple therapy might consider bronchoscopy with BAL. I feel this is less likely HP. Patient's questions and concerns were addressed prior to discharge today. Patient verbalized understanding and is agreeable with the plan. Objective testing was reviewed with this visit. Followup discussed. Return in about 3 months (around 02/10/2024). Communication to associated physician to be sent via correspondence. Shelton Womack MD Staff physician [facility] Pager / phone [phone] November 11, 2023 8926 documented in this encounter [facility] 10-29-2023 Instructions Bertha Schumacher APRN.CNP - 10/29/2023 4:27 PM EDT Ice and heat as tolerated Activity as tolerated documented in this encounter [facility] 10-29-2023 History of Present illness Narrative VIRTUAL VISIT PROGRESS NOTE This is a virtual visit using Audio Only Visit. It required patient-provider interaction for the medical decision making as documented below. I have communicated my name and active licensure. The patient's identity and physical location were verified at the time of this visit. Either the patient or their legal ict sales representative has been informed of the risks and benefits of -- and alternatives to -- treatment through a remote evaluation and consents to proceed with the evaluation remotely. Elis Bills is a 63 year old male seen for evaluation after the first in a series of 2 MBNB. The procedure was done on 10/28/2023 , bilateral lumbar MBNB L4-S1 with less than 40% relief. Patient states his pain is still out of control. Patient states that after the injection he felt a little better but in no way it was 80% better for any length of time. Patient states he has been living with this pain for greater than a year. Patient states that he wants to know what the next plan of care is as he is miserable. Patient was asking for disability or something to help him with the pain. Date Procedure relief 10/28/2023 B/L MBNB L4-S1 <40% HISTORY REVIEWED (electronic chart updated): PAST MEDICAL HISTORY Diagnosis Date Hypercholesteremia Stroke (HCC) History reviewed. No pertinent surgical history. FAMILY HISTORY Problem Relation Age of Onset No Known Problems Mother Leukemia Father Social History Tobacco Use Smoking status: Every Day Packs/day: .25 Types: Cigarettes Smokeless tobacco: Never Vaping Use Vaping Use: Never used Substance Use Topics Alcohol use: Yes Comment: 6 pack a day Drug use: Never Current Outpatient Medications Medication Sig predniSONE (DELTASONE) 20 mg tablet Take 1 tablet by mouth as directed. TID for 4 days then decrease to bid for 4 days then daily for 4 days then stop. albuterol (PROVENTIL) 2.5 mg /3 mL (0.083 %) nebulizer solution Use 3 mL via nebulizer three times a day. Inhale over 5-15 minutes montelukast (SINGULAIR) 10 mg tablet Take 1 tablet by mouth daily at bedtime. nicotine polacrilex (NICORETTE) 4 mg gum Take 1 Each by mouth as needed. budesonide (PULMICORT) 0.5 mg/2 mL nebulizer solution Use 2 mL via nebulizer two times a day. lisinopril 2.5 mg tablet traMADol (ULTRAM) 50 mg tablet varenicline (CHANTIX) 1 mg tablet Take 0.5 tablets by mouth once daily for 3 days, THEN 0.5 tablets two times a day for 4 days, THEN 1 tablet two times a day for 23 days. varenicline (CHANTIX) 1 mg tablet Take 1 tablet by mouth two times a day. Patient should start on September 19, 2023. nicotine (NICODERM CQ) 21 mg/24 hr Apply 1 Patch as directed every 24 hours. clopidogrel (PLAVIX) 75 mg tablet Take 75 mg by mouth once daily. atorvastatin (LIPITOR) 20 mg tablet Take 20 mg by mouth once daily. Unsure of dose celecoxib (CELEBREX) 200 mg capsule Take 200 mg by mouth two times a day. OMEPRAZOLE (PRILOSEC ORAL) Take 10 mg by mouth as needed. Unsure of dose MEDICATION, NON-DATABASE OTC cold med albuterol HFA (PROVENTIL HFA, VENTOLIN HFA) 90 mcg/actuation inhaler Inhale 2 Puffs as instructed every 6 hours as needed for Wheezing/Shortness of Breath. predniSONE (DELTASONE) 20 mg tablet Take 2 tablet by mouth daily for 5 days. No current facility-administered medications for this visit. ALLERGIES Allergen Reactions Penicillins Unknown REVIEW OF SYSTEMS: GENERAL: feeling well without fatigue, no recent change in weight HEENT: denies JIN, change in hearing or vision, no other ENT complaints NECK: denies swelling or pain in neck RESPIRATORY: no cough, no wheezing or shortness of breath CARDIOVASCULAR: no chest pain, no palpitations MUSCULOSKELETAL: Low back pain as described aboveSKIN: no rash PSYCH: denies depressed or anxious mood, sleep is normal NEURO: no numbness or paresthesias and no weakness of the extremities PHYSICAL EXAMINATION: VIDEO EXAM: (if completed, performed via video enabled technology) No assessment was done: audio only ASSESSMENT: (M47.816) Lumbar spondylosis (primary encounter diagnosis) (M54.40, G89.29) Chronic bilateral low back pain with sciatica, sciatica laterality unspecified (M48.061) Spinal 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 PLAN: predniSONE (DELTASONE) 20 mg tablet Take 1 tablet by mouth as directed. TID for 4 days then decrease to bid for 4 days then daily for 4 days then stop. Normal, Disp-24 tablet, R-0 Dx: 1. Lumbar spondylosis MRI LUMBAR SPINE WO [facility] Routine As patient did not get relief from the medial branch nerve block we will abort the planned to continue with the series and abort the RFA plan. Patient stated understanding. Patient sent stating that he did have physical therapy at [facility] which is part of [facility] plan. Will get the notes from [facility] and order an MRI of the lumbar spine. Patient has never had back surgery this will be done without contrast. Patient reporting that he is miserable stating that he would like disability that he is having a hard time working because of the pain, I will attempt to manage his pain short-term with another round of steroid to see if it will help bring the pain level down. Patient is to follow-up in 1 month however if the patient can get in for the MRI sooner we will see him sooner. Patient Instructions Ice and heat as tolerated Activity as tolerated I spent a total of 31 minutes on the date of the service which included preparing to see the patient, completing clinical documentation, obtaining and/or reviewing separately obtained history, counseling and educating the patient/family/caregiver, ordering medications, tests, or procedures, and communicating with other HCPs (not separately reported) Bertha Schumacher APRN.NABOR documented in this encounter [facility] 10-28-2023 History of Present illness Narrative [facility] Date: 10/28/2023 Patient name: Elis Bills Physician performing procedure: Dhiraj Herr MD Diagnosis: (M47.816) Lumbar spondylosis (primary encounter diagnosis) Procedure: Medial Branch Block (Diagnostic only, NO STEROIDS) under fluoroscopic guidance BILATERAL SIDES at L4-5 and L5-S1 Injectate: A total of 6 ml volume was injected The injectate consisted of: 6 ml of 0.75% Bupivacaine Comments: None Improvement after today's procedure: as per nursing report HPI: Elis Bills is a 63 year old year old male who presents today, in pain, for the procedure noted above. Review of Systems: Pertinent Positives: MSK: pain in the region being treated Neuro: no weakness or numbness in the region being treated Skin: Negative (No itching) Eyes: Negative (No blurred or double vision) Respiratory: Negative (No Cough, [id number], Dyspnea on exertion, wheezing) Cardiovascular: Negative (No Chest Pain, Tightness, Pressure, Palpitations) Gastrointestinal: Negative (No Abdominal pain, Nausea, Vomiting, Constipation, Diarrhea) Genitourinary: Negative (No dysuria) Hematologic: Negative (No bleeding, bruising) OB: is Denied or Not Applicable Endocrine: Negative (No hot/cold intolerance) Psychiatric: Negative (No depression, anxiety or suicidal ideation) PAST MEDICAL HISTORY Diagnosis Date Hypercholesteremia Stroke (HCC) History reviewed. No pertinent surgical history. FAMILY HISTORY Problem Relation Age of Onset No Known Problems Mother Leukemia Father Social History Tobacco Use Smoking status: Every Day Packs/day: .25 Types: Cigarettes Smokeless tobacco: Never Vaping Use Vaping Use: Never used Substance Use Topics Alcohol use: Yes Comment: 6 pack a day Drug use: Never Current Outpatient Medications on File Prior to Visit Medication Sig albuterol (PROVENTIL) 2.5 mg /3 mL (0.083 %) nebulizer solution Use 3 mL via nebulizer three times a day. Inhale over 5-15 minutes montelukast (SINGULAIR) 10 mg tablet Take 1 tablet by mouth daily at bedtime. nicotine polacrilex (NICORETTE) 4 mg gum Take 1 Each by mouth as needed. budesonide (PULMICORT) 0.5 mg/2 mL nebulizer solution Use 2 mL via nebulizer two times a day. lisinopril 2.5 mg tablet clopidogrel (PLAVIX) 75 mg tablet Take 75 mg by mouth once daily. atorvastatin (LIPITOR) 20 mg tablet Take 20 mg by mouth once daily. Unsure of dose OMEPRAZOLE (PRILOSEC ORAL) Take 10 mg by mouth as needed. Unsure of dose MEDICATION, NON-DATABASE OTC cold med albuterol HFA (PROVENTIL HFA, VENTOLIN HFA) 90 mcg/actuation inhaler Inhale 2 Puffs as instructed every 6 hours as needed for Wheezing/Shortness of Breath. traMADol (ULTRAM) 50 mg tablet varenicline (CHANTIX) 1 mg tablet Take 0.5 tablets by mouth once daily for 3 days, THEN 0.5 tablets two times a day for 4 days, THEN 1 tablet two times a day for 23 days. varenicline (CHANTIX) 1 mg tablet Take 1 tablet by mouth two times a day. Patient should start on September 19, 2023. nicotine (NICODERM CQ) 21 mg/24 hr Apply 1 Patch as directed every 24 hours. celecoxib (CELEBREX) 200 mg capsule Take 200 mg by mouth two times a day. predniSONE (DELTASONE) 20 mg tablet Take 2 tablet by mouth daily for 5 days. No current facility-administered medications on file prior to visit. Objective Exam: Vitals: As per nursing documentation Constitutional: Normal Appearance, Oriented to Time, Place and Person Head: No lacerations, no external signs of trauma Eyes: Conjunctiva clear. No discharge from the eyes Cardiovascular: Appears well-perfused Pulmonary: Non-labored respirations Abdominal: Non-distended Skin: No visible rashes or ecchymosis Psychiatric: Mood appropriate for given condition Neurological: Gross movements are limited by pain, but otherwise unremarkable Data Reviewed: Nursing note and vitals reviewed. Additional imaging reviewed as appropriate Assessment and Plan: As noted above [place] protocol documentation / Pre-Procedure Checklist: Consent: Obtained in writing prior to procedure I had a nice discussion with the patient today about their current pain and the pathology that could be causing it We discussed different treatment options, including risks, benefits and alternatives. We agreed to proceed as previously discussed, or the plan was modified in accordance with the comments noted above Unless stated otherwise in the procedure note, the risks include but are not limited to infection, allergic reaction, increased pain, lack of therapeutic benefit, steroid reaction, nerve damage, paralysis, stroke, epidural hematoma, syncope, headache, respiratory or cardiac arrest, pneumothorax, and scar formation Once the plan was agreed upon, the patient gave written consent to proceed and was transported into the procedure room Surgical/Procedure pause or Time Out : Time Out was led by the physician in the procedure room, with the patient and all staff present and participating The following information was verified during the Time Out process: Patient name, patient date of , procedure site (marked), laterality, anticoagulants and allergies Procedure: The patient was prepped and draped in a sterile fashion in the prone position after informed consent was signed and all patient questions were answered including the risks, benefits, alternative treatment options, and prognosis. The risks are as mentioned above, with the exception of Pneumothorax. To block the L5 dorsal rami, a spinal needle of the same dimensions as mentioned below was positioned at the junction of the superior articular process of the sacrum and the ala under biplanar fluoroscopic control. A 22 gauge, 5 inch spinal needle was inserted a few centimeters lateral to the pedicles of the remaining lumbar levels mentioned above and advanced ventral and medial through the muscles to the target point. Once the needle contacted periosteum at the superior-most medial edge of the transverse process, the C-arm was obliqued such that the axis of the lumbar facet joints could be fluoroscopically visualized, and the correct position of the needle confirmed. After contact with periosteum and negative aspirate for blood and CSF, a 1cc volume of the injectate noted above was placed. A needle was similarly directed to the other facet joint nerves mentioned above, with completion of the procedure at each level as described above. Please see the nursing note for exact times (time out, procedure start, procedure end). After careful removal of the needle, there was minimal bleeding. The injection site was covered with appropriate sterile dressing. The patient was noted to have tolerated the procedure well and was discharged after an appropriate period of post-procedure observation. The patient was instructed to contact us if there were any complications. The patient was advised to follow-up with the requesting physician within one to two weeks or as per their requested follow-up plan. Post procedure visit summary with written instructions was offered to the patient. Dhiraj Herr MD Pain Management [facility] Review of Systems Constitutional: Positive for activity change and unexpected weight change. Negative for chills and fever. Genitourinary: Negative for difficulty urinating. Musculoskeletal: Positive for arthralgias, back pain, gait problem, joint swelling and myalgias. Negative for neck pain and neck stiffness. Neurological: Positive for weakness, numbness and headaches. Psychiatric/Behavioral: Negative for dysphoric mood, sleep disturbance and suicidal ideas. The patient is not nervous/anxious. documented in this encounter [facility] 10-28-2023 Nurse Note Order has been placed in the patient's chart with the following parameters for discharge from the physician: Patient is alert and oriented Vitals: Diastolic/Systolic +/- 20mmHg Respirations: 12-18 Pulse: 60-100 SpO2 is greater than or equal to 90% Patient has no nausea or vomiting Patient has no dizziness Pain level is +/- 2 from initial evaluation Dressing, dry and intact with no evidence of bleeding Criteria has been met, patient is okay to be discharged per the physician. Physician has gone in and evaluated the patient. Dressing dry and intact. No drainage noted. The patient denies nausea, numbness, tingling, weakness, shortness of breath, dizziness, or headache. Pain level 0/10. Vital signs within normal limits. Patient denied needing walked out by clinical staff and denied needing a wheelchair. Patient given discharge instructions and sent to transportation via ambulatory method. Patient left in good condition. Procedure to be performed: BILATERAL L4/L5, L5/S1 LUMBAR MEDIAL BRANCH BLOCK Patient was wheeled on stretcher from pre op bay to procedure room and assisted onto the procedure tablePatient s procedure was performed in an [facility] Procedure room. Pause completed at each level by provider to verify correct level and laterality placement Pressure was applied to patient s injection site(s) and bleeding was minimal. Patient had no complaint of shortness of breath, dizziness, headache, numbness, tingling, weakness or complications from procedure. Patient was assisted from the procedure table onto the stretcher and wheeled into a post op bay. Patient was advised a clinician will be to obtain another set of vitals. Time Out: 947 Confirmed patient name, date of , procedure site, laterality, and allergies Procedure Start: 950 Procedure End: 956 Vascular Radiologist's Name: mehreen Are you on a blood thinner: y plavix no hold If yes, is a hold required: n Last dose of blood thinner: n INR Result today: n Do you require a Lovenox bridge:n Are you a diabetic:n Are you/or could you be : n Are you taking Xanax for the procedure: n Are you currently on a steroid? n Are you currently on an antibiotic: n Have you had a COVID-19 vaccine in the last 14 days Or are you scheduled to receive one? n documented in this encounter [facility] 10-28-2023 Instructions Jael Lamas LPN - 10/28/2023 9:52 AM EDT PROCEDURE DISCHARGE INSTRUCTIONS 10/28/2023 Elis Bills 1960 Physician: Dhiraj Herr MD Procedure: BILATERAL L4/L5, L5/S1 LUMBAR MEDIAL BRANCH BLOCK Post Procedure Instructions: If sedation not given, no driving for 3 hours after the procedure., Perform activities that typically make you have pain and monitor your pain level during these activities for the next 3-4 hours., Apply cold compresses to injection site if needed., If medically acceptable, take over the counter anti-inflammatories such as ibuprofen or Aleve if needed for post procedure discomfort., No hot baths, hot tubs or hot compresses for 24 hours., and Increased pain the day after the procedure may occur. If you have any of the following signs or symptoms, please call our office at Fever and/or chills Swelling and/or drainage from injection site New pain that is different than your normal pain (other than soreness at the site of the procedure) Stiff neck Shortness of breath Severe increase in pain Motor dysfunctions, such as difficulty walking, bowel or bladder dysfunction and/or incontinence Headache that is severe, light sensitive or develops when changing positions (positional headache) Nausea and/or vomiting accompanied by headache that started 24-48 hours after the procedure If you have any emergent concerns, please call 911 or go to your local emergency room. Please also contact our office to let us know you will be seeking emergency care and why. documented in this encounter [facility] 10-19-2023 Miscellaneous Notes Rx mail pharmacy faxed requesting the following refill. Requested Prescriptions Pending Prescriptions Disp Refills albuterol (PROVENTIL) 2.5 mg /3 mL (0.083 %) nebulizer solution 810 mL 3 Sig: Use 3 mL via nebulizer three times a day. Inhale over 5-15 minutes montelukast (SINGULAIR) 10 mg tablet 90 tablet 3 Sig: Take 1 tablet by mouth daily at bedtime. nicotine polacrilex (NICORETTE) 4 mg gum 300 Each 3 Sig: Take 1 Each by mouth as needed. budesonide (PULMICORT) 0.5 mg/2 mL nebulizer solution 360 mL 3 Sig: Use 2 mL via nebulizer two times a day. Patient Phone numbers: [phone] (home) Request is for script(s) to be escript to mail order [facility]. Dalia Segura documented in this encounter [facility] 10-11-2023 Miscellaneous Notes Pharmacy faxed requesting the following refill. Patient needs 90 day supply [facility] to [facility]. Requested Prescriptions Pending Prescriptions Disp Refills montelukast (SINGULAIR) 10 mg tablet 90 tablet 3 Sig: Take 1 tablet by mouth daily at bedtime. albuterol (PROVENTIL) 2.5 mg /3 mL (0.083 %) nebulizer solution 810 mL 3 Sig: Use 3 mL via nebulizer three times a day. Inhale over 5-15 minutes budesonide (PULMICORT) 0.5 mg/2 mL nebulizer solution 360 mL 3 Sig: Use 2 mL via nebulizer two times a day. nicotine polacrilex (NICORETTE) 4 mg gum 300 Each 3 Sig: Take 1 Each by mouth as needed. Patient Phone numbers: [phone] (home) Request is for script(s) to be escript to mail order [facility]. Edel Cramer documented in this encounter [facility] 09-29-2023 Miscellaneous Notes I will send in a medrol dose lalo to see if this will help. documented in this encounter [facility] 09-23-2023 Miscellaneous Notes Procedure(s) being scheduled: B/L MBNB L4-L5, L5-S1 w fluoro X2 1.Are you diabetic No 2. Are you on any blood thinners? Yes. Please list the current medications being prescribed Plavix. If yes, does it require a hold? No If yes, was approval letter sent? No 3. Are you taking any aspirin? No 4. Are you currently taking any antibiotics? No If yes, is it prophylactic or for treatment of an infection? N/A 5. Do you have any allergies to latex? No 6. Do you have any allergies to seafood or shellfish? No 7. Do you have any allergies to x-ray dye? No 8. Did the physician instruct you to take any medication prior to your procedure? No 9. Does this procedure require a charter coach driver? Yes If yes, has patient been notified that a charter coach driver is needed and must be present at check in? Yes 10. Were the pre-procedure instructions explained and provided to the patient? Yes 11. Do you have a pacemaker? No 12. Do you have an internal stimulator of any kind? No If yes, please bring the remote with you to your procedure visit. 13. Have you received the COVID-19 Vaccine? No. If yes, date(s) received: N/A (Patient should not receive a procedure including steroids 14 days prior to their first dose of the COVID vaccine. They should not receive any procedure containing steroids in the time frame between their 1st and 2nd doses of the COVID vaccine. They should not receive a procedure containing steroids 14 days after their 2nd dose of the COVID vaccine.) Albertina Martin documented in this encounter [facility] 09-23-2023 Instructions Bertha Schumacher APRN.CNP - 09/23/2023 8:52 AM EST Ice and heat as tolerated Activity as tolerated documented in this encounter [facility] 09-23-2023 History of Present illness Narrative Review of Systems Constitutional: Negative for activity change, chills, fever and unexpected weight change. Gastrointestinal: Negative for bowel retention or incontinence Genitourinary: Negative for difficulty urinating. Negative for bladder retention or incontinence Musculoskeletal: Positive for arthralgias, back pain, gait problem and myalgias. Negative for joint swelling, neck pain and neck stiffness. Neurological: Negative for weakness, numbness and headaches. Psychiatric/Behavioral: Positive for sleep disturbance. Negative for dysphoric mood and suicidal ideas. The patient is not nervous/anxious. Images from the original note were not included. [facility] Today's Date: 09/23/2023 Name: Elis Bills : 1960 Purpose: New Patient Consultation Chief complaint: low back pain Referring Clinician: Pertinent Past Medical History: COPD, Obesity, HTN, HLD, CVA Pertinent Past Surgeries: B/L THR History of Present Illness (HPI): 09/22/2023 - Initial HPI (Obtained by Bertha Schumacher CNP). DURATION AND ONSET: The pain complaint has been present for approximately 9 months. The pain had a sudden onset. The mechanism of injury is unknown. RED FLAG SYMPTOMS: denies red flags. PAIN DESCRIPTION: Timing: Intermittent Character: Burning, Sharp, Stabbing Primary Location: low back Radiation: none Exacerbating factors: Walking, getting up from a seated position Relieving factors: Sitting Interferes with: physical activity and work Patient is here today complaining of low back pain without radicular symptoms. Patient stating that he has had an x-ray of his lumbar spine but no MRI. Patient stating that he has had an injection into his low back, with no relief. Patient states he did not care for the explanation of the next plan of care from this provider and so he is changing pain management. Patient has done recent physical therapy. 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 States he is fine until he starts walking or moving and then the pain increases. States he is fine at sitting. Patient states he was prescribed tramadol and it is not helping at all with his pain so he stopped use. Patient is also on Plavix and is aware that he cannot take NSAIDs. Patient is here to see what can be done for his back pain as it is interfering with his activities of daily living and his work. Current Pain Medications: Neuropathics: NSAIDS: Muscle Relaxants: Topicals: Other Prescription or OTC Pain Medications: Opioids (when applicable): Greenlight Questionnaire GREENLIGHT Completed Date 09/23/2023 Opioid Risk Tool Opiod Risk Tool Date Completed 09/23/2023 Comments 0 MOHINDER-7 Anxiety Score 0 Completed Date 09/23/2023 PHQ9P Score 0 Completed Date 09/23/2023 Anti-depressants or Mood-Stabilizers: None Anti-Coagulants: None, Plavix Therapies Attended (Current or Most Recent): 12 sessions of PT Treatment History: PAIN PROCEDURES: DATE PROCEDURE IMPROVEMENT To date, no interventional pain management procedures performed at this practice. MEDICATIONS Taken TO DATE (for the chief complaint(s)): Neuropathics: None NSAIDS: unable to take, on plavix, states he did take in the past with relief. Muscle Relaxants: None Topicals: None Other Prescription or OTC Pain Medications: Tylenol (Acetaminophen) Opioids: Tramadol Data Reviewed Today: Allergies: ALLERGIES Allergen Reactions Penicillins Unknown Social History Tobacco Use Smoking status: Every Day Packs/day: .25 Types: Cigarettes Smokeless tobacco: Never Vaping Use Vaping Use: Never used Substance Use Topics Alcohol use: Yes Comment: 6 pack a day Drug use: Never INTAKE PAIN ASSESSMENT 06/14/2023 09/23/2023 Are you having pain associated with your visit today? - Yes, Provider notified Pain Scales - Verbal (Numeric Rating or Visual Analog Scale) Pain Level 0 8 Pain Location - Back-Lower Description - Burning;Aching;Sore Duration Units - Years Frequency - Intermittent Intervention/Comfort measure - Reposition;Relaxation;Positionin g Pain Assessment Assessment - Compliance: PDMP website checked and validated on 09/23/2023 by Bertha Schumacher APRN.EXPORT 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 All prescriptions have been APPROPRIATELY filled. No suspicious activity was identified. [facility] 09/23/2023 Questionnaire GREENLIGHT Completed Date 09/23/2023 Questionnaire Opiod Risk Tool Completed Date 09/23/2023 Comments 0 (All drug screens are appropriate unless indicated otherwise) Risk Assessment: MOHINDER-7: MOHINDER - 7 SCORES 09/23/2023 MOHINDER-7 Score 0 (0-4) minimal anxiety, (5-9) mild anxiety, (10-14) moderate anxiety, (15-21) severe anxiety PHQ-9: PHQ-9 09/23/2023 Score 0 (0-4) minimal depression, (5-9) mild depression, (10-14) moderate depression, (15-19) moderately severe depression, (20-27) severe depression Greenlight Questionnaire GREENLIGHT Completed Date 09/23/2023 Opioid Risk Tool Opiod Risk Tool Date Completed 09/23/2023 Comments 0 MOHINDER-7 Anxiety Score 0 Completed Date 09/23/2023 PHQ9P Score 0 Completed Date 09/23/2023 Diagnostic Studies: Relevant Imaging: MRI Spine Report No resulted procedures found. Lumbar x-rays 5 views dated 02/12/2023 these show good overall alignment in the coronal and sagittal planes. Degenerative changes at multiple levels with loss of disc height disc osteophyte complex formation and facet arthrosis. Mild anterolisthesis of L5-S1. Degenerative changes of the bilateral sacroiliac joints with loss of joint space, subchondral sclerosis and osteophyte formation. Electrodiagnostic Study (EMG): None Recent Labs: No results found for: CREAT No results found for: EGFR No results found for: PCGLUCOSE Current Medications, Past Medical History, Past Surgical History, Family History, Social History and Review of Systems: On today's date, noted above, I have confirmed and edited as necessary, the PFSH and ROS obtained by others. Physical Exam: 09/23/23 0806 Pulse: 74 Resp: 20 SpO2: 99% Physical Exam Vitals reviewed. Constitutional: General: He is not in acute distress. Appearance: He is not ill-appearing. HENT: Head: Normocephalic and atraumatic. Eyes: Conjunctiva/sclera: Conjunctivae normal. Cardiovascular: Pulses: Normal pulses. Pulmonary: Effort: Pulmonary effort is normal. No respiratory distress. Musculoskeletal: Thoracic back: No tenderness or bony tenderness. No scoliosis. Lumbar back: No tenderness. Normal range of motion. Negative right straight leg raise test and negative left straight leg raise test. No scoliosis. Comments: Hip Flexion: Right- 5/5; Left- 5/5 Knee Extension: Right- 5/5; Left- 5/5 Dorsiflexion: Right- 5/5; Left- 5/5 Plantarflexion: Right- 5/5; Left- 5/5 Special Tests- Facet Loading: Right-Positive; Left Positive SI Compression:Negative DESI:Right-Positive ; Left Positive Skin: General: Skin is warm and dry. Neurological: Mental Status: He is alert and oriented to person, place, and time. Gait: Gait abnormal (antalgic). Tandem walk normal. Deep Tendon Reflexes: Reflex Scores: Patellar reflexes are 1+ on the right side and 1+ on the left side. Comments: Psychiatric: Mood and Affect: Mood and affect normal. Behavior: Behavior normal. Behavior is cooperative. IMPRESSION: 63 year old male presents with complaint(s) of low back pain that appears to be axial in presentation. After discussion, review of xrays and review of assessment educated the pt regarding the MBNB series. Pt agrees to this plan. Will get notes from the prior pain management but from patient's description it appears the patient did have a caudal injection done. Diagnoses: (M47.816) Lumbar spondylosis (primary encounter diagnosis) (M54.40, G89.29) Chronic bilateral low back pain with sciatica, sciatica laterality unspecified PLAN: Elis Bills would benefit from the following to reach personal goals for decreasing pain, improving function and work participation, and/or improving quality of life: Medications: Requested Prescriptions No prescriptions requested or ordered in this encounter Interventional Procedures: Medial Branch Block (Diagnostic only, NO STEROIDS) under fluoroscopic guidance BILATERAL SIDES at L4-5 and L5-S1 Vascular Radiologist Needed: Medial Branch Blocks - YES Anticoagulants: None, Plavix (7 days when hold needed) Relevant Allergies: None Additional Info: None Studies: None Functional Christianity: NONE Referrals: No additional considerations at present Follow-up: Follow up 1-5 days after each procedure as a VV Depending on response to the above plan, consider: RFA Compliance and Clinic Policies Reviewed and/or Discussed Today: None Attribution: In addition to reviewing the information noted above, some elements copied from my most recent clinical note(s), including the physical exam (completed in entirety today), and the impression and plan sections, have been updated where appropriate. All reflect current medical decision making from today's date. Bertha Schumacher APRN.[facility] Pain [facility] documented in this encounter [facility] 09-02-2023 Miscellaneous Notes Radiology Service Progress Note PATIENT NAME: Elis Bills DATE OF SERVICE: September 02, 2023 TIME: 1:16 PM PATIENT IDENTITY VERIFICATION COMPLETED USING TWO (2) IDENTIFIERS: Name and Date of confirmed by patient verbally and Name and Date of confirmed by identification band. FALL SCREENING: Has the patient had 2 falls in the last year or 1 fall with injury or currently using an Ambulatory Assistive Device (Walker, Cane, Wheelchair, Crutches, etc.)? No PATIENT GENDER DATA: Male PATIENT RELEVANT IMPLANT DATA REVIEWED: Yes PATIENT PRESENTS WITH AN IMPLANTABLE OR ATTACHED PROFILE TRIMMER: No RADIOLOGY DEPARTMENT: CT; Exam(s) Completed: Chest PERIPHERAL IV DATA: Not applicable SIGNED BY: RT Chyna(R) September 02, 2023 1:16 PM documented in this encounter [facility] 09-02-2023 Procedure note Associated Ord er(s): NITRIC OXIDE, EXHALED RESPIRATORY THERAPY ORAL EXHALED NITRIC OXIDE SERVICE DATE: 09/02/2023 SERVICE TIME: 11:54 AM Oral Exhaled Nitric Oxide measurement: 15.0 (ppb) Normal: Adult 5-20 ppb, pediatric (<12 years) 5-15 ppb High Normal / Increased: Adult 20-35 ppb, pediatric (<12 years) 15-25 ppb Moderately raised exhaled Nitric Oxide may indicate underlying inflammation, but note that: Cold and influenza can raise exhaled Nitric Oxide and some patients have higher baseline exhaled Nitric Oxide levels than others. High: Adult >35 ppb, pediatric (<12 years) >25 ppb Indicative of ongoing eosinophilic inflammation. Symptomatic patient likely to respond to steroids. Possible causes (if already on steroids): Poor compliance, recent allergen exposure, steroid dose inadequate, and steroid resistance. Note that not all patients with high exhaled nitric oxide levels display symptoms. Oral Exhaled Nitric Oxide measurement (Previous Encounters) Test Date Oral Exhaled Nitric Oxide (ppb) 09/02/2023 15.0 NAME: Boo Camarillo RRT PATIENT NAME: Elis Bills DATE: September 02, 2023 TIME: 11:54 AM documented in this encounter [facility] 09-02-2023 History of Present illness Narrative PULM FUNCTION SMARTBLOCK: Provider: Shelton Aguilera MD Assisting Tech: Boo Camarillo RRT DLCO: 1 LV - Box: 1 Exhaled Nitric Oxide: 1 documented in this encounter [facility] 08-26-2023 Miscellaneous Notes Images from the original note were not included. Shelton Aguilera MD [facility] Pulm Nurse Pool Please instruct patient The blood work shows signs of inflammation. Although no specific allergies found, I feel you have a combination of asthma and COPD. Please keep using your inhalers as instructed. We will follow up as discussed on the last visit. Please feel free to reach out ( ) if any further questions arise. Please send a reply to this message to ensure you read it. Best regards Shelton Womack MD Pt notified. Lisa Allison RN documented in this encounter [facility] 08-24-2023 Miscellaneous Notes Images from the original note were not included. Shelton Aguilera MD P [facility] Pul Nurse Pool Please instruct the patient. The breathing test shows possible mild restriction. Possible mild weakness on move air inside. The blood work shows high levels of allergies and inflammation. Please use the inhalers as instructed, we will discuss next steps on the following visit based on your response to the treatment. Thank you Shelton Notified pt of results, verbalized understanding Lisa Allison RN documented in this encounter [facility] 08-24-2023 Miscellaneous Notes Nebulizer order signed & faxed back to [facility]. Dalia Segura documented in this encounter [facility] 08-20-2023 Miscellaneous Notes Nebulizer order, office note, insurance cards and demo sheet faxed to [facility]. Edel Cramer documented in this encounter [facility] 08-20-2023 History of Present illness Narrative PULM FUNCTION SMARTBLOCK: Provider: Shelton Aguilera MD Spirometry: 1 documented in this encounter [facility] Evaluation note No assessment inform ation available [facility] Work Phone: Evaluation note Diagnosis Dyspnea, unspecified type [facility] Chronic obstructive pulmonary disease, unspecified COPD type (HCC) [facility] Wheezing [facility] Diagnosis Lumbar spondylosis- Primary Lumbosacral spondylosis without myelopathy Chronic bilateral low back pain with sciatica, sciatica laterality unspecified [facility] Diagnosis Chronic obstructive pulmonary disease, unspecified COPD type (HCC)- Primary [facility] Diagnosis Lumbar spondylosis- Primary Lumbosacral spondylosis without myelopathy [facility] Diagnosis Lumbar spondylosis- Primary Lumbosacral spondylosis without myelopathy Chronic bilateral low back pain with sciatica, sciatica laterality unspecified Spinal 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 Spinal stenosis, lumbar region, without neurogenic claudication [facility] Diagnosis Abnormal finding of diagnostic imaging- Primary Other nonspecific (abnormal) findings on radiological and other examinations of body structure [facility] Diagnosis Lung nodules- Primary Other nonspecific abnormal finding of lung field Severe persistent asthma, unspecified whether complicated Tobacco use disorder Morbid obesity (HCC) Morbid obesity [facility] Diagnosis Spinal 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 Spinal stenosis, lumbar region, without neurogenic claudication [facility] Diagnosis Lumbar spondylosis- Primary Lumbosacral spondylosis without myelopathy Spinal 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 Spinal stenosis, lumbar region, without neurogenic claudication [facility] Diagnosis Severe persistent asthma, unspecified whether complicated- Primary [facility] Diagnosis Lumbar spondylosis- Primary Lumbosacral spondylosis without myelopathy [facility] Diagnosis Lumbar spondylosis- Primary Lumbosacral spondylosis without myelopathy [facility] Diagnosis Lung nodules Other nonspecific abnormal finding of lung field [facility] Diagnosis Lung nodules Other nonspecific abnormal finding of lung field Severe persistent asthma, unspecified whether complicated [facility] Diagnosis Lumbar spondylosis- Primary Lumbosacral spondylosis without myelopathy Spinal 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 Spinal stenosis, lumbar region, without neurogenic claudication Chronic bilateral low back pain with sciatica, sciatica laterality unspecified [facility] Diagnosis Lumbar radiculopathy- Primary Thoracic or lumbosacral neuritis or radiculitis, unspecified [facility] Diagnosis Lumbar spondylosis- Primary Lumbosacral spondylosis without myelopathy Lumbar radiculopathy Thoracic or lumbosacral neuritis or radiculitis, unspecified Spinal stenosis, lumbar region, without neurogenic claudication [facility] Diagnosis Low back pain, unspecified back pain laterality, unspecified chronicity, unspecified whether sciatica present- Primary [facility] Diagnosis Lumbar spondylosis- Primary Lumbosacral spondylosis without myelopathy [facility] Diagnosis Lumbar spondylosis- Primary Lumbosacral spondylosis without myelopathy Spinal stenosis, lumbar region, without neurogenic claudication [facility] Diagnosis Lumbar spondylosis- Primary Lumbosacral spondylosis without myelopathy [facility] Diagnosis APPOINTMENT CANCELLED- Primary [facility] Diagnosis Spinal stenosis of lumbar region with neurogenic claudication- Primary Spinal stenosis, lumbar region, with neurogenic claudication [facility] Diagnosis Low back pain, unspecified back pain laterality, unspecified chronicity, unspecified whether sciatica present [facility] Diagnosis Spinal stenosis of lumbar region with neurogenic claudication- Primary Spinal stenosis, lumbar region, with neurogenic claudication Spinal stenosis of lumbar region with neurogenic claudication Spinal stenosis, lumbar region, with neurogenic claudication [facility]* Diagnosis Pre-op examination- Primary Preoperative examination, unspecified Spinal stenosis of lumbar region with neurogenic claudication Spinal stenosis, lumbar region, with neurogenic claudication Obesity, Class III, BMI >= 40 Morbid obesity COPD with acute exacerbation (HCC) Obstructive chronic bronchitis with exacerbation Hyperlipidemia, unspecified hyperlipidemia type Gastroesophageal reflux disease, unspecified whether esophagitis present 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 artery (HCC) Nicotine use disorder Tobacco use disorder Hypertension, unspecified type RBBB (right bundle branch block) Right bundle branch block Spinal stenosis of lumbar region with neurogenic claudication- Primary Spinal stenosis, lumbar region, with neurogenic claudication Other specified abnormal findings of blood chemistry Other abnormal findings in urine Abnormal coagulation profile Spinal stenosis of lumbar region with neurogenic claudication Spinal stenosis, lumbar region, with neurogenic claudication [facility] Diagnosis Pre-op examination- Primary Preoperative examination, unspecified Spinal stenosis of lumbar region with neurogenic claudication Spinal stenosis, lumbar region, with neurogenic claudication Obesity, Class III, BMI >= 40 Morbid obesity COPD with acute exacerbation (HCC) Obstructive chronic bronchitis with exacerbation Hyperlipidemia, unspecified hyperlipidemia type Gastroesophageal reflux disease, unspecified whether esophagitis present 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 artery (HCC) Nicotine use disorder Tobacco use disorder Hypertension, unspecified type RBBB (right bundle branch block) Right bundle branch block Spinal stenosis of lumbar region with neurogenic claudication Spinal stenosis, lumbar region, with neurogenic claudication * Assessment & Plan Note - Harvey Purvis APRN.CNP - 07/14/2024 8:21 AM EST Associated Problem(s): RBBB (right bundle branch block) Patient denies any symptoms. ECG today ECG 11/2023 SINUS RHYTHM WITH PREMATURE SUPRAVENTRICULAR COMPLEXES RIGHT BUNDLE BRANCH BLOCK ABNORMAL ECG * Assessment & Plan Note - Harvey Purvis APRN.CNP - 07/10/2024 1:00 PM EST Associated Problem(s): HTN (hypertension) Stable on lisinopril - instructed to hold DOS * Assessment & Plan Note - Harvey Purvis APRN.CNP - 07/10/2024 12:59 PM EST Associated Problem(s): Nicotine use disorder Quit smoking a week or so ago (04/06/24) Smoked for about 35 years 1- 2 ppd * Assessment & Plan Note - Harvey Purvis APRN.NABOR - 07/10/2024 12:59 PM EST Associated Problem(s): 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 artery (HCC) On Plavix, statin denies residual * Assessment & Plan Note - Harvey Purvis APRN.CNP - 07/10/2024 12:59 PM EST Associated Problem(s): Gastroesophageal reflux disease Stable on Omeprazole - instructed to take DOS * Assessment & Plan Note - Harvey Purvis APRN.CNP - 07/10/2024 12:59 PM EST Associated Problem(s): Hyperlipidemia Stable on Statin - instructed to take as prescribed * Assessment & Plan Note - Harvey Purvis APRN.CNP - 07/10/2024 12:56 PM EST Associated Problem(s): COPD with acute exacerbation (HCC) Pt uses rescue inhaler as needed reports may 3 times per week. Uses nebulizer twice a day. Denies pneumonia in the last 6 months. Reports last hospitalization due to COPD exacerbation was 11/2023. Instructed to use inhaler as prescribed and bring DOS. Follows by Pulmonology - last OV 11/11/23 * Assessment & Plan Note - Harvey Purvis APRN.CNP - 07/10/2024 12:55 PM EST Associated Problem(s): Obesity, Class III, BMI >= 40 BMI 41 * Assessment & Plan Note - Harvey Purvis APRN.CNP - 07/10/2024 12:55 PM EST Associated Problem(s): Spinal stenosis of lumbar region with neurogenic claudication Surgery scheduled 07/28/23 * Assessment & Plan Note - Harvey Purvis APRN.CNP - 07/10/2024 12:55 PM EST Associated Problem(s): Pre-op examination Medical conditions which may affect the perioperative course were address in today's visit. documented in this encounter [facility] note* Diagnosis Pre-op examination- Primary Preoperative examination, unspecified Spinal stenosis of lumbar region with neurogenic claudication Spinal stenosis, lumbar region, with neurogenic claudication Obesity, Class III, BMI >= 40 Morbid obesity COPD with acute exacerbation (HCC) Obstructive chronic bronchitis with exacerbation Hyperlipidemia, unspecified hyperlipidemia type Gastroesophageal reflux disease, unspecified whether esophagitis present 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 artery (HCC) Nicotine use disorder Tobacco use disorder Hypertension, unspecified type RBBB (right bundle branch block) Right bundle branch block Spinal stenosis of lumbar region with neurogenic claudication Spinal stenosis, lumbar region, with neurogenic claudication Spinal stenosis of lumbar region with neurogenic claudication Spinal stenosis, lumbar region, with neurogenic claudication documented in this encounter [facility] note* Diagnosis Pre-op examination- Primary Preoperative examination, unspecified Spinal stenosis of lumbar region with neurogenic claudication Spinal stenosis, lumbar region, with neurogenic claudication Obesity, Class III, BMI >= 40 Morbid obesity COPD with acute exacerbation (HCC) Obstructive chronic bronchitis with exacerbation Hyperlipidemia, unspecified hyperlipidemia type Gastroesophageal reflux disease, unspecified whether esophagitis present 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 artery (HCC) Nicotine use disorder Tobacco use disorder Hypertension, unspecified type RBBB (right bundle branch block) Right bundle branch block Spinal stenosis, lumbar region, without neurogenic claudication [facility] Diagnosis Pre-op examination- Primary Preoperative examination, unspecified Spinal stenosis of lumbar region with neurogenic claudication Spinal stenosis, lumbar region, with neurogenic claudication Obesity, Class III, BMI >= 40 Morbid obesity COPD with acute exacerbation (HCC) Obstructive chronic bronchitis with exacerbation Hyperlipidemia, unspecified hyperlipidemia type Gastroesophageal reflux disease, unspecified whether esophagitis present 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 artery (HCC) Nicotine use disorder Tobacco use disorder Hypertension, unspecified type RBBB (right bundle branch block) Right bundle branch block S/P lumbar laminectomy- Primary Other postprocedural status [facility] Diagnosis Pre-op examination- Primary Preoperative examination, unspecified Spinal stenosis of lumbar region with neurogenic claudication Spinal stenosis, lumbar region, with neurogenic claudication Obesity, Class III, BMI >= 40 Morbid obesity COPD with acute exacerbation (HCC) Obstructive chronic bronchitis with exacerbation Hyperlipidemia, unspecified hyperlipidemia type Gastroesophageal reflux disease, unspecified whether esophagitis present 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 artery (HCC) Nicotine use disorder Tobacco use disorder Hypertension, unspecified type RBBB (right bundle branch block) Right bundle branch block S/P lumbar laminectomy- Primary Other postprocedural status [facility] Diagnosis Pre-op examination- Primary Preoperative examination, unspecified Spinal stenosis of lumbar region with neurogenic claudication Spinal stenosis, lumbar region, with neurogenic claudication Obesity, Class III, BMI >= 40 Morbid obesity COPD with acute exacerbation (HCC) Obstructive chronic bronchitis with exacerbation Hyperlipidemia, unspecified hyperlipidemia type Gastroesophageal reflux disease, unspecified whether esophagitis present 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 artery (HCC) Nicotine use disorder Tobacco use disorder Hypertension, unspecified type RBBB (right bundle branch block) Right bundle branch block S/P lumbar laminectomy- Primary Other postprocedural status [facility]* Diagnosis COPD exacerbation (HCC)- Primary Obstructive chronic bronchitis with exacerbation 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 artery (HCC) Exacerbation of intermittent asthma, unspecified asthma severity (HCC) Difficulty walking Difficulty in walking Decreased mobility and endurance COPD exacerbation (HCC) Obstructive chronic bronchitis with exacerbation Exacerbation of intermittent asthma, unspecified asthma severity (HCC) [facility] Diagnosis Chronic respiratory failure with hypoxia (HCC)- Primary Chronic respiratory failure [facility] Diagnosis COPD exacerbation (HCC)- Primary Obstructive chronic bronchitis with exacerbation 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 artery (HCC) Gastroesophageal reflux disease with esophagitis without hemorrhage [facility]* Diagnosis Nonintractable headache, unspecified chronicity pattern, unspecified headache type- Primary Vision changes Unspecified visual disturbance 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 artery (HCC) Left against medical advice Surgical or other procedure not carried out because of patient's decision [facility]* Diagnosis Reactive airway disease without complication, unspecified asthma severity, unspecified whether persistent (HCC)- Primary Pulmonary nodule seen on imaging study Environmental and seasonal allergies Tobacco use disorder Body mass index (BMI) 39.0-39.9, adult [facility] Diagnostic Procedure Only (Routine) - Pending Review Specialty Diagnoses / Procedures Referred By Contmilvia Referred To [facility] Diagnoses Lung nodules Severe persistent asthma, unspecified whether complicated Procedures HOME SLEEP APNEA TEST (HSAT) SLEEP STD AIRFLOW HRT RATE&O2 SAT EFFORT UNATT Shelton Aguilera MD [address] [place] [address] [place] [address] Referral ID Status Reason Start Date Expiration Date Visits Requested Visits Authorized [id number] Pending Review Auto-Generat ed Referral 11/11/2023 11/10/2024 1 1 * Consult, Test, Treat (Routine) - Authorized Specialty Diagnoses / Procedures Referred By Contac t Referred To Contact Allergy Diagnoses Severe persistent asthma, unspecified whether complicated Procedures CONSULT TO ALLERGY/IMMUNOLOGY OFFICE/OUTPATIENT [facility] 60 MINUTES Shelton Aguilera MD [address] [place] [address] Referral ID Status Reason Start Date Expiration Date Visits Requested Visits Authorized [id number] Authorized PCP Requested Referral 11/11/2023 11/10/2024 1 1 * Outpatient Procedure (Routine) - Authorized Specialty Diagnoses / Procedures [facility]erred To Contact [facility] [place] Diagnoses Lung nodules Severe persistent asthma, unspecified whether complicated Procedures ECHO ECHO TTHRC R-T 2D W/WOM-MODE COMPL SPEC&COLR D Shelton Aguilera MD [address] [place] [address] [facility] [address] [place] [address] Referral ID Status Reason Start Date Expiration Date Visits Requested Visits Authorized [id number] Authorized Auto-Generat ed Referral 11/11/2023 11/10/2024 1 1 * MRI/CT (Routine) - Authorized Specialty Diagnoses / Procedures [facility] Referred To Contact CT IMAGING Diagnoses Lung nodules Procedures CT CHEST WO IVCON DIAGNOSTIC COMPUTED TOMOGRAPHY THORAX W/O CNTRST Shelton Aguilera MD [address] [place] [address] [place] [address] Referral ID Status Reason Start Date Expiration Date Visits Requested Visits Authorized [id number] Authorized Auto-Generat ed Referral 11/11/2023 12/10/2024 1 1 [facility] for referral (narrative)* Outpatient Procedure (Routine) - Closed Specialty Diagnoses / Procedures [facility] Referred To Contact [facility] Diagnoses Lung nodules Severe persistent asthma, unspecified whether complicated Procedures ECHO ECHO TTHRC R-T 2D W/WOM-MODE COMPL SPEC&COLR D Shelton Aguilera MD [address] [place] [address] [facility] [address] [place] [address] Referral ID Status Reason Start Date Expiration Date V isits Requested Visits Authorized [id number] Closed Auto-Generate d Referral 11/11/2023 11/10/2024 1 1 [facility] for referral (narrative)* Diagnostic Procedure Only (Routine) - Authorized Specialty Diagnoses / Procedures Referred By Contac t Referred To Contact XR IMAGING Diagnoses Low back pain, unspecified back pain laterality, unspecified chronicity, unspecified whether sciatica present Procedures XR LUMBAR MOTION 4V AP/LAT/ FLEX/EXT RADEX SPINE LUMBOSACRAL MINIMUM 4 VIEWS Lois Kee MD [address] [place] [address] [place] [address] Referral ID Status Reason Start Date Expiration Date Visits Requested Visits Authorized [id number] Authorized Auto-Generat ed Referral 04/06/2024 05/06/2025 1 1 * Diagnostic Procedure Only (Routine) - Authorized Specialty Diagnoses / Procedures Referred By Contac t Referred To Contact XR IMAGING Diagnoses Low back pain, unspecified back pain laterality, unspecified chronicity, unspecified whether sciatica present Procedures XR LUMBAR LIMITED 2V AP/LAT RADEX SPINE LUMBOSACRAL 2/3 VIEWS Lois Kee MD [address] [place] [address] [place] [address] Referral ID Status Reason Start Date Expiration Date Visits Requested Visits Authorized [id number] Authorized Auto-Generat ed Referral 04/04/2024 05/04/2025 1 1 [facility] for referral (narrative)* Outpatient Procedure (Routine) - New Request Specialty Diagnoses / Procedures Referred By Contac t Referred To Contact [facility] Diagnoses Spinal stenosis of lumbar region with neurogenic claudication Procedures ECG COMPLETE ECG ROUTINE ECG W/LEAST 12 LDS W/I&R Lois Kee MD [address] [place] [address] [address] Referral ID Status Reason Start Date Expiration Date Visits Requested Visits Authorized [id number] New Request Auto-Generat ed Referral 07/14/2025 1 1 [facility] for referral (narrative)* Diagnostic Procedure Only (Routine) - Pending Review Specialty Diagnoses / Procedures Referred By Bryant westfall Referred To Contact XR IMAGING Diagnoses S/P lumbar laminectomy Procedures XR LUMBAR LIMITED 2V FLEX/EXT RADEX SPINE LUMBOSACRAL 2/3 VIEWS Lois Kee MD [address] [place] [address] [place] [address] Referral ID Status Reason Start Date Expiration Date Visits Requested Visits Authorized [id number] Pending Review Auto-Generat ed Referral 08/10/2024 09/09/2025 1 1 [facility] for visit Narrative* Outpatient Procedure (Routine) - Closed Specialty Diagnoses / Procedures [facility] Referred To Contact [facility] Diagnoses Lung nodules Severe persistent asthma, unspecified whether complicated Procedures ECHO ECHO TTHRC R-T 2D W/WOM-MODE COMPL SPEC&COLR D Shelton Aguilera MD [address] [place] [address] [address] Referral ID Status Reason Start Date Expiration Date V isits Requested Visits Authorized [id number] Closed Auto-Generate d Referral 11/11/2023 11/10/2024 1 1 [facility] for visit Narrative* Diagnostic Procedure Only (Routine) - Closed Specialty Diagnoses / Procedures Referred By Contac t Referred To Contact XR IMAGING Diagnoses Low back pain, unspecified back pain laterality, unspecified chronicity, unspecified whether sciatica present Procedures XR LUMBAR MOTION 4V AP/LAT/ FLEX/EXT RADEX SPINE LUMBOSACRAL MINIMUM 4 VIEWS Lois Kee MD [address] [place] [address] [place] [address] Referral ID Status Reason Start Date Expiration Date V isits Requested Visits Authorized [id number] Closed Auto-Generate d Referral 04/06/2024 05/06/2025 1 1 [facility] for visit Narrative* Auth/Cert (Routine) Specialty Diagnoses / Procedures Referred By Contac t Referred To Contact Case Management Diagnoses Respiratory distress, hypoxia, pneumonia Procedures n/a Aura Wagner MD [address] [place] [address] Phone: tel: fax: [employer] [address] [place] [address] Phone: tel: Referral ID Status Reason Start Date Expiration Date Visits Re quested Visits Authorized [id number] 3 [facility] Summary Purpose Family History No Family History Records Found Relationship Condition Age at Onset Recorded Date/T tana Unknown Family History?- Unknown April 5:35am Family History?Cancer Unknown Novemb er 2016 10:44am Relationship Condition Age at Onset Recorded Date/T tana Unknown Family History?- Unknown April 4:35am Family History?Cancer Unknown Novemb er 2016 9:44am Advance Directives No Advanced Directives Records Found Date Activated Date Inactivated Comments 12/07/2024 1:57 PM 12/07/2024 7:16 PM Question Answer Comments Documentation of decision pr ocess for this code status: Discussed with patient or surrogate. This is the code status chosen by the patient/surrogate. Date Activated Date Inactivated Comments 10/24/2024 8:37 PM 10/26/2024 6:24 PM Protocol is a ctivated when the patient experiences cardiac or respiratory arrest. (All necessary treatments and interventions can be initiated prior to arrest.) Question Answer Comments Documentation of decision pr ocess for this code status: Discussed with patient or surrogate. This is the code status chosen by the patient/surrogate. Date Activated Date Inactivated Comments 10/24/2024 7:48 PM 10/24/2024 8:37 PM Question Answer Comments Documentation of decision pr ocess for this code status: Discussed with patient or surrogate. This is the code status chosen by the patient/surrogate. Date Activated Date Inactivated Comments 04/23/2019 9:16 PM 04/24/2019 5:53 PM Question Answer Comments Documentation of decision pr ocess for this [...] the code status chosen by the patient/surrogate. Advance Directive Response Recorded Date/ Time Living Will No April 22 9 7:56pm Power of Equipment Washer No April 22 019 7:56pm Advance Directive Response Recorded Date/ Time Living Will No March 22 022 11:25am Power of Equipment Washer No March 22, 2022 11:25am Latest Code Status on File Code Status Date Activated Date Inactivated Comments Full Code 04/23/2019 9:16 PM 04/24/2019 5:53 PM Question Answer Comments Documentation of decision process for this code status: Discussed with patient or surrogate. This is the code status chosen by the patient/surrogate. Advance Directive Response Recorded Date/ Time Living Will No March 22, 022 10:25am Power of Equipment Washer No March 22, 2022 10:25am Date Activated Date Inactivated Comments 12/01/2023 1:41 PM 12/02/2023 3:17 PM Question Answer Comments Full Code Order Discussed With: Patient Date Activated Date Inactivated Comments 12/01/2023 1:41 PM 12/02/2023 3:17 PM Question Answer Comments Full Code Order Discussed With: Patient Date Activated Date Inactivated Comments 04/23/2019 9:16 PM 04/24/2019 5:53 PM Date Activated Date Inactivated Comments 10/24/2024 8:37 PM Protocol is act ivated when the patient experiences cardiac or respiratory arrest. (All necessary treatments and interventions can be initiated prior to arrest.) Question Answer Comments Documentation of decision pr ocess for this code status: Discussed with patient or surrogate. This is the code status chosen by the patient/surrogate. Date Activated Date Inactivated Comments 10/24/2024 7:48 PM 10/24/2024 8:37 PM Question Answer Comments Documentation of decision pr ocess for this code status: Discussed with patient or surrogate. This is the code status chosen by the patient/surrogate. Date Activated Date Inactivated Comments 04/23/2019 9:16 PM 04/24/2019 5:53 PM Question Answer Comments Documentation of decision pr ocess for this code status: Discussed with patient or surrogate. This is the code status chosen by the patient/surrogate. Date Activated Date Inactivated Comments 10/24/2024 8:37 PM 10/26/2024 6:24 PM Protocol is a ctivated when the patient experiences cardiac or respiratory arrest. (All necessary treatments and interventions can be initiated prior to arrest.) Date Activated Date Inactivated Comments 10/24/2024 7:48 PM 10/24/2024 8:37 PM Date Activated Date Inactivated Comments 04/23/2019 9:16 PM 04/24/2019 5:53 PM Date Activated Date Inactivated Comments 12/07/2024 1:57 PM 12/07/2024 7:16 PM Date Activated Date Inactivated Comments 10/24/2024 8:37 PM 10/26/2024 6:24 PM Protocol is a ctivated when the patient experiences cardiac or respiratory arrest. (All necessary treatments and interventions can be initiated prior to arrest.) Date Activated Date Inactivated Comments 10/24/2024 7:48 PM 10/24/2024 8:37 PM Date Activated Date Inactivated Comments 04/23/2019 9:16 PM 04/24/2019 5:53 PM Question Answer Comments Documentation of decision pr ocess for this code status: Discussed with patient or surrogate. This is the code status chosen by the patient/surrogate. Chief Complaint and Reason for Visit Chief Complaint HAND Chief Complaint SPINAL STENOSIS. RX HERE SOB/COUGH Chief Complaint SOB/COUGH Reason for Referral Specialty Diagnoses / Procedures Referred By Contac t Referred To Contact MR IMAGING Diagnoses Spinal 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 Procedures MRI LUMBAR SPINE WO IVCON MRI SPINAL CANAL LUMBAR W/O CONTRAST MATERIAL Bertha Schumacher APRN.EXPORT 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 [address] [place] [address] [place] [address] Referral ID Status Reason Start Date Expiration Date Visits Requested Visits Authorized [id number] Pending Review Auto-Generat ed Referral 10/29/2023 11/27/2024 1 1 Referral ID Status Reason Start Date Expiration Date V isits Requested Visits Authorized [id number] Closed Auto-Generate d Referral 10/29/2023 11/27/2024 1 1 Specialty Diagnoses / Procedures Referred By Contac t Referred To Contact Neurosurgery Diagnoses Lumbar spondylosis Spinal stenosis, lumbar region, without neurogenic claudication Procedures CONSULT TO NEUROSURGERY OFFICE/OUTPATIENT [facility] MDM 60 MINUTES Prebish, SEAN Cantu.EXPORT 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 [address] [facility] [address] [place] [address] Oziel Edwards I, MD [address] [place] [address] Referral ID Status Reason Start Date Expiration Date Visits Requested Visits Authorized [id number] Authorized PCP Requested Referral 03/30/2024 06/28/2024 1 1 Specialty Diagnoses / Procedures Referred By Contac t Referred To Contact [facility] Diagnoses S/P lumbar laminectomy Procedures CONSULT TO PHYSICAL THERAPY PHYSICAL THERAPY EVALUATION HIGH COMPLEX 45 MINS Lois Kee MD [address] [place] [address] [facility] [address] [place] [address] Referral ID Status Reason Start Date Expiration Date Visits Requested Visits Authorized [id number] Pending Review Auto-Generat ed Referral 08/25/2024 08/25/2025 1 1 Additional Source Comments (unrecognized sect ion and content) No Status Records FoundNo Status Records FoundNo Status Records FoundNo Status Records FoundNo Status Records FoundNo Status Records Found INFORMATION SOURCE (unrecogn ized section and content) DATE CREATED AUTHOR 12/30/2019 [facility] ([place]) DATE CREATED AUTHOR AUTHOR'S ORGANIZ ATION 09/06/2023 [facility] DATE CREATED AUTHOR AUTHOR'S ORGANIZ ATION 10/27/2023 [facility] DATE CREATED AUTHOR AUTHOR'S ORGANIZ ATION 10/30/2024 [facility] DATE CREATED AUTHOR AUTHOR'S ORGANIZ ATION 11/21/2024 [facility] DATE CREATED AUTHOR AUTHOR'S ORGANIZ ATION 02/05/2025 [facility] Goals (unrecognized section and content) Goals may be documented in a n alternate sectionGoals may be documented in an alternate sectionGoals may be documented in an alternate sectionGoals may be documented in an alternate sectionGoals may be documented in an alternate sectionGoals may be documented in an alternate section Care Teams (unrecognized sec tion and content) Team Status: Active Member Role Status Dates Dr. Pilar Steele DO Family Provider Active Dr. Pilar Steele , Primary Care Provider Active Team Status: Inactive Member Role Status Dates Dr. Pilar Steele DO Primary Care Pro vider, Attending Provider, Referring Provider Active Team Status: Active Member Role Status Dates Dr. Pilar Steele DO Primary Care Provider Active Dr. Juarez Dewitt , DO Attending Provider Active Business Associate Relationship Specialty Start Date End Date Pilar Steele DO [address] [place] [address] PCP - General Family Medicine 06/14/23 Business Associate Relationship Specialty Start Date End Date Pilar Steele DO [address] [place] [address] PCP - General Family Medicine 06/14/23 Business Associate Relationship Specialty Start Date End Date Pilar Steele DO [address] [place] [address] PCP - General Family Medicine 06/14/23 Business Associate Relationship Specialty Start Date End Date Pilar Steele DO [address] [place] [address] PCP - General Family Medicine 06/14/23 Business Associate Relationship Specialty Start Date End Date Pilar Steele DO [address] [place] [address] PCP - General Family Medicine 06/14/23 Business Associate Relationship Specialty Start Date End Date Pliar Steele DO [address] [place] [address] PCP - General Family Medicine 06/14/23 Business Associate Relationship Specialty Start Date End Date Pilar Steele DO [address] [place] [address] PCP - General Family Medicine 06/14/23 Business Associate Relationship Specialty Start Date End Date Pilar Steele DO [address] [place] [address] PCP - General Family Medicine 06/14/23 Business Associate Relationship Specialty Start Date End Date Pilar Steele DO [address] [place] [address] PCP - General Family Medicine 06/14/23 Business Associate Relationship Specialty Start Date End Date Pilar Steele DO [address] [place] [address] PCP - General Family Medicine 06/14/23 Business Associate Relationship Specialty Start Date End Date Pilar Steele DO [address] [place] [address] PCP - General Family Medicine 06/14/23 Business Associate Relationship Specialty Start Date End Date Pilar Steele DO [address] [place] [address] PCP - General Family Medicine 06/14/23 Business Associate Relationship Specialty Start Date End Date Pilar Steele DO [address] [place] [address] PCP - General Family Medicine 06/14/23 Business Associate Relationship Specialty Start Date End Date Pilar Steele DO [address] [place] [address] PCP - General Family Medicine 06/14/23 Business Associate Relationship Specialty Start Date End Date Pilar Steele DO [address] [place] [address] PCP - General Family Medicine 06/14/23 Business Associate Relationship Specialty Start Date End Date Pilar Steele DO [address] [place] [address] PCP - General Family Medicine 06/14/23 Business Associate Relationship Specialty Start Date End Date Pilar Steele DO [address] [place] [address] PCP - General Family Medicine 06/14/23 Business Associate Relationship Specialty Start Date End Date Pilar Steele DO [address] [place] [address] PCP - General Family Medicine 06/14/23 Business Associate Relationship Specialty Start Date End Date Pilar Steele DO [address] [place] [address] PCP - General Family Medicine 06/14/23 Business Associate Relationship Specialty Start Date End Date Pilar Steele DO [address] [place] [address] PCP - General Family Medicine 06/14/23 Business Associate Relationship Specialty Start Date End Date Pilar Steele DO [address] [place] [address] PCP - General Family Medicine 06/14/23 Business Associate Relationship Specialty Start Date End Date Pilar Steele DO [address] [place] [address] PCP - General Family Medicine 06/14/23 Business Associate Relationship Specialty Start Date End Date Pilar Steele DO [address] [place] [address] PCP - General Family Medicine 06/14/23 Business Associate Relationship Specialty Start Date End Date Pilar Steele DO [address] [place] [address] PCP - General Family Medicine 06/14/23 Business Associate Relationship Specialty Start Date End Date Pilar Steele DO [address] [place] [address] (Fax) PCP - General Family Medicine 06/14/23 Business Associate Relationship Specialty Start Date End Date Pilar Steele DO [address] [place] [address] (Fax) PCP - General Family Medicine 06/14/23 Business Associate Relationship Specialty Start Date End Date Pilar Steele DO [address] [place] [address] PCP - General Family Medicine 06/14/23 Business Associate Relationship Specialty Start Date End Date Pilar Steele DO [address] [place] [address] PCP - General Family Medicine 06/14/23 Business Associate Relationship Specialty Start Date End Date Pilar Steele DO [address] [place] [address] PCP - General Family Medicine 06/14/23 Business Associate Relationship Specialty Start Date End Date Pilar Steele DO [address] [place] [address] PCP - General Family Medicine 06/14/23 Business Associate Relationship Specialty Start Date End Date Pilar Steele DO [address] [place] [address] PCP - General Family Medicine 06/14/23 Business Associate Relationship Specialty Start Date End Date Pilar Steele DO [address] [place] [address] PCP - General Family Medicine 06/14/23 Business Associate Relationship Specialty Start Date End Date Pilar Steele DO [address] [place] [address] PCP - General Family Medicine 06/14/23 Business Associate Relationship Specialty Start Date End Date Pilar Steele DO [address] [place] [address] PCP - General Family Medicine 06/14/23 Business Associate Relationship Specialty Start Date End Date Pilar Steele DO [address] [place] [address] PCP - General Family Medicine 06/14/23 Business Associate Relationship Specialty Start Date End Date MylaPilar ferrisDO [address] [place] [address] PCP - General Family Medicine 06/14/23 Business Associate Relationship Specialty Start Date End Date MylaPilar ferrisDO [address] [place] [address] PCP - General Family Medicine 06/14/23 Business Associate Relationship Specialty Start Date End Date Brooke Wu RN [address] [place] [address] [place] [address] Lead Sustainability Specialist 10/27/24 Business Associate Relationship Specialty Start Date End Date Brooke Wu RN [address] [place] [address] [place] [address] Lead Sustainability Specialist 10/27/24 Business Associate Relationship Specialty Start Date End Date Brooke Wu RN [address] [facility] [place] [address] Lead Sustainability Specialist 10/27/24 Business Associate Relationship Specialty Start Date End Date Brooke Wu RN [address] [place] [address] [place] [address] Lead Sustainability Specialist 10/27/24 Business Associate Relationship Specialty Start Date End Date Myla Pilar BerriosDO [address] [place] [address] PCP - General Family Medicine 06/14/23 Business Associate Relationship Specialty Start Date End Date Veronica Butt APRN-[place] [address] [place] [address] LAPIDARY APPRENTICE Pulmonary Medicine 01/20/25 Source Comments (unrecognize d section and content) In the event this informatio n is protected by the Federal Confidentiality of Alcohol and Drug Abuse Patient Records regulations: The Federal rules restrict any use of the information to criminally investigate or prosecute any alcohol or drug abuse patient.[facility] HospitalIn the event this information is protected by the Federal Confidentiality of Alcohol and Drug Abuse Patient Records regulations: The Federal rules restrict any use of the information to criminally investigate or prosecute any alcohol or drug abuse patient.[facility] HospitalIn the event this information is protected by the Federal Confidentiality of Alcohol and Drug Abuse Patient Records regulations: The Federal rules restrict any use of the information to criminally investigate or prosecute any alcohol or drug abuse patient.[facility] HospitalIn the event this information is protected by the Federal Confidentiality of Alcohol and Drug Abuse Patient Records regulations: The Federal rules restrict any use of the information to criminally investigate or prosecute any alcohol or drug abuse patient.[facility] HospitalIn the event this information is protected by the Federal Confidentiality of Alcohol and Drug Abuse Patient Records regulations: The Federal rules restrict any use of the information to criminally investigate or prosecute any alcohol or drug abuse patient.[facility] HospitalIn the event this information is protected by the Federal Confidentiality of Alcohol and Drug Abuse Patient Records regulations: The Federal rules restrict any use of the information to criminally investigate or prosecute any alcohol or drug abuse patient.[facility] HospitalIn the event this information is protected by the Federal Confidentiality of Alcohol and Drug Abuse Patient Records regulations: The Federal rules restrict any use of the information to criminally investigate or prosecute any alcohol or drug abuse patient.[facility] HospitalIn the event this information is protected by the Federal Confidentiality of Alcohol and Drug Abuse Patient Records regulations: The Federal rules restrict any use of the information to criminally investigate or prosecute any alcohol or drug abuse patient.[facility] HospitalIn the event this information is protected by the Federal Confidentiality of Alcohol and Drug Abuse Patient Records regulations: The Federal rules restrict any use of the information to criminally investigate or prosecute any alcohol or drug abuse patient.[facility] HospitalIn the event this information is protected by the Federal Confidentiality of Alcohol and Drug Abuse Patient Records regulations: The Federal rules restrict any use of the information to criminally investigate or prosecute any alcohol or drug abuse patient.[facility] HospitalIn the event this information is protected by the Federal Confidentiality of Alcohol and Drug Abuse Patient Records regulations: The Federal rules restrict any use of the information to criminally investigate or prosecute any alcohol or drug abuse patient.[facility] HospitalIn the event this information is protected by the Federal Confidentiality of Alcohol and Drug Abuse Patient Records regulations: The Federal rules restrict any use of the information to criminally investigate or prosecute any alcohol or drug abuse patient.[facility] HospitalIn the event this information is protected by the Federal Confidentiality of Alcohol and Drug Abuse Patient Records regulations: The Federal rules restrict any use of the information to criminally investigate or prosecute any alcohol or drug abuse patient.[facility] HospitalIn the event this information is protected by the Federal Confidentiality of Alcohol and Drug Abuse Patient Records regulations: The Federal rules restrict any use of the information to criminally investigate or prosecute any alcohol or drug abuse patient.[facility] HospitalIn the event this information is protected by the Federal Confidentiality of Alcohol and Drug Abuse Patient Records regulations: The Federal rules restrict any use of the information to criminally investigate or prosecute any alcohol or drug abuse patient.[facility] HospitalIn the event this information is protected by the Federal Confidentiality of Alcohol and Drug Abuse Patient Records regulations: The Federal rules restrict any use of the information to criminally investigate or prosecute any alcohol or drug abuse patient.[facility] HospitalIn the event this information is protected by the Federal Confidentiality of Alcohol and Drug Abuse Patient Records regulations: The Federal rules restrict any use of the information to criminally investigate or prosecute any alcohol or drug abuse patient.[facility] HospitalIn the event this information is protected by the Federal Confidentiality of Alcohol and Drug Abuse Patient Records regulations: The Federal rules restrict any use of the information to criminally investigate or prosecute any alcohol or drug abuse patient.[facility] HospitalIn the event this information is protected by the Federal Confidentiality of Alcohol and Drug Abuse Patient Records regulations: The Federal rules restrict any use of the information to criminally investigate or prosecute any alcohol or drug abuse patient.[facility] HospitalIn the event this information is protected by the Federal Confidentiality of Alcohol and Drug Abuse Patient Records regulations: The Federal rules restrict any use of the information to criminally investigate or prosecute any alcohol or drug abuse patient.[facility] HospitalIn the event this information is protected by the Federal Confidentiality of Alcohol and Drug Abuse Patient Records regulations: The Federal rules restrict any use of the information to criminally investigate or prosecute any alcohol or drug abuse patient.[facility] HospitalIn the event this information is protected by the Federal Confidentiality of Alcohol and Drug Abuse Patient Records regulations: The Federal rules restrict any use of the information to criminally investigate or prosecute any alcohol or drug abuse patient.[facility] HospitalIn the event this information is protected by the Federal Confidentiality of Alcohol and Drug Abuse Patient Records regulations: The Federal rules restrict any use of the information to criminally investigate or prosecute any alcohol or drug abuse patient.[facility] HospitalIn the event this information is protected by the Federal Confidentiality of Alcohol and Drug Abuse Patient Records regulations: The Federal rules restrict any use of the information to criminally investigate or prosecute any alcohol or drug abuse patient.[facility] HospitalIn the event this information is protected by the Federal Confidentiality of Alcohol and Drug Abuse Patient Records regulations: The Federal rules restrict any use of the information to criminally investigate or prosecute any alcohol or drug abuse patient.[facility] HospitalIn the event this information is protected by the Federal Confidentiality of Alcohol and Drug Abuse Patient Records regulations: The Federal rules restrict any use of the information to criminally investigate or prosecute any alcohol or drug abuse patient.[facility] HospitalIn the event this information is protected by the Federal Confidentiality of Alcohol and Drug Abuse Patient Records regulations: The Federal rules restrict any use of the information to criminally investigate or prosecute any alcohol or drug abuse patient.[facility] HospitalIn the event this information is protected by the Federal Confidentiality of Alcohol and Drug Abuse Patient Records regulations: The Federal rules restrict any use of the information to criminally investigate or prosecute any alcohol or drug abuse patient.[facility] HospitalIn the event this information is protected by the Federal Confidentiality of Alcohol and Drug Abuse Patient Records regulations: The Federal rules restrict any use of the information to criminally investigate or prosecute any alcohol or drug abuse patient.[facility] HospitalIn the event this information is protected by the Federal Confidentiality of Alcohol and Drug Abuse Patient Records regulations: The Federal rules restrict any use of the information to criminally investigate or prosecute any alcohol or drug abuse patient.[facility] HospitalIn the event this information is protected by the Federal Confidentiality of Alcohol and Drug Abuse Patient Records regulations: The Federal rules restrict any use of the information to criminally investigate or prosecute any alcohol or drug abuse patient.[facility] HospitalIn the event this information is protected by the Federal Confidentiality of Alcohol and Drug Abuse Patient Records regulations: The Federal rules restrict any use of the information to criminally investigate or prosecute any alcohol or drug abuse patient.[facility] HospitalIn the event this information is protected by the Federal Confidentiality of Alcohol and Drug Abuse Patient Records regulations: The Federal rules restrict any use of the information to criminally investigate or prosecute any alcohol or drug abuse patient.[facility] HospitalIn the event this information is protected by the Federal Confidentiality of Alcohol and Drug Abuse Patient Records regulations: The Federal rules restrict any use of the information to criminally investigate or prosecute any alcohol or drug abuse patient.[facility] HospitalIn the event this information is protected by the Federal Confidentiality of Alcohol and Drug Abuse Patient Records regulations: The Federal rules restrict any use of the information to criminally investigate or prosecute any alcohol or drug abuse patient.[facility] HospitalIn the event this information is protected by the Federal Confidentiality of Alcohol and Drug Abuse Patient Records regulations: The Federal rules restrict any use of the information to criminally investigate or prosecute any alcohol or drug abuse patient.[facility] HospitalIn the event this information is protected by the Federal Confidentiality of Alcohol and Drug Abuse Patient Records regulations: The Federal rules restrict any use of the information to criminally investigate or prosecute any alcohol or drug abuse patient.[facility] HospitalIn the event this information is protected by the Federal Confidentiality of Alcohol and Drug Abuse Patient Records regulations: The Federal rules restrict any use of the information to criminally investigate or prosecute any alcohol or drug abuse patient.[facility] HospitalIn the event this information is protected by the Federal Confidentiality of Alcohol and Drug Abuse Patient Records regulations: The Federal rules restrict any use of the information to criminally investigate or prosecute any alcohol or drug abuse patient.[facility] HospitalIn the event this information is protected by the Federal Confidentiality of Alcohol and Drug Abuse Patient Records regulations: The Federal rules restrict any use of the information to criminally investigate or prosecute any alcohol or drug abuse patient.[facility] HospitalIn the event this information is protected by the Federal Confidentiality of Alcohol and Drug Abuse Patient Records regulations: The Federal rules restrict any use of the information to criminally investigate or prosecute any alcohol or drug abuse patient.[facility] HospitalIn the event this information is protected by the Federal Confidentiality of Alcohol and Drug Abuse Patient Records regulations: The Federal rules restrict any use of the information to criminally investigate or prosecute any alcohol or drug abuse patient.[facility] HospitalIn the event this information is protected by the Federal Confidentiality of Alcohol and Drug Abuse Patient Records regulations: The Federal rules restrict any use of the information to criminally investigate or prosecute any alcohol or drug abuse patient.[facility] HospitalIn the event this information is protected by the Federal Confidentiality of Alcohol and Drug Abuse Patient Records regulations: The Federal rules restrict any use of the information to criminally investigate or prosecute any alcohol or drug abuse patient.[facility] HospitalIn the event this information is protected by the Federal Confidentiality of Alcohol and Drug Abuse Patient Records regulations: The Federal rules restrict any use of the information to criminally investigate or prosecute any alcohol or drug abuse patient.[facility] HospitalIn the event this information is protected by the Federal Confidentiality of Alcohol and Drug Abuse Patient Records regulations: The Federal rules restrict any use of the information to criminally investigate or prosecute any alcohol or drug abuse patient.[facility] HospitalIn the event this information is protected by the Federal Confidentiality of Alcohol and Drug Abuse Patient Records regulations: The Federal rules restrict any use of the information to criminally investigate or prosecute any alcohol or drug abuse patient.[facility] HospitalIn the event this information is protected by the Federal Confidentiality of Alcohol and Drug Abuse Patient Records regulations: The Federal rules restrict any use of the information to criminally investigate or prosecute any alcohol or drug abuse patient.[facility] HospitalIn the event this information is protected by the Federal Confidentiality of Alcohol and Drug Abuse Patient Records regulations: The Federal rules restrict any use of the information to criminally investigate or prosecute any alcohol or drug abuse patient.[facility] HospitalIn the event this information is protected by the Federal Confidentiality of Alcohol and Drug Abuse Patient Records regulations: The Federal rules restrict any use of the information to criminally investigate or prosecute any alcohol or drug abuse patient.[facility] HospitalIn the event this information is protected by the Federal Confidentiality of Alcohol and Drug Abuse Patient Records regulations: The Federal rules restrict any use of the information to criminally investigate or prosecute any alcohol or drug abuse patient.[facility] HospitalIn the event this information is protected by the Federal Confidentiality of Alcohol and Drug Abuse Patient Records regulations: The Federal rules restrict any use of the information to criminally investigate or prosecute any alcohol or drug abuse patient.[facility] HospitalIn the event this information is protected by the Federal Confidentiality of Alcohol and Drug Abuse Patient Records regulations: The Federal rules restrict any use of the information to criminally investigate or prosecute any alcohol or drug abuse patient.[facility] HospitalIn the event this information is protected by the Federal Confidentiality of Alcohol and Drug Abuse Patient Records regulations: The Federal rules restrict any use of the information to criminally investigate or prosecute any alcohol or drug abuse patient.[facility] HospitalIn the event this information is protected by the Federal Confidentiality of Alcohol and Drug Abuse Patient Records regulations: The Federal rules restrict any use of the information to criminally investigate or prosecute any alcohol or drug abuse patient.[facility] HospitalIn the event this information is protected by the Federal Confidentiality of Alcohol and Drug Abuse Patient Records regulations: The Federal rules restrict any use of the information to criminally investigate or prosecute any alcohol or drug abuse patient.[facility] HospitalIn the event this information is protected by the Federal Confidentiality of Alcohol and Drug Abuse Patient Records regulations: The Federal rules restrict any use of the information to criminally investigate or prosecute any alcohol or drug abuse patient.[facility] HospitalIn the event this information is protected by the Federal Confidentiality of Alcohol and Drug Abuse Patient Records regulations: The Federal rules restrict any use of the information to criminally investigate or prosecute any alcohol or drug abuse patient.[facility] HospitalIn the event this information is protected by the Federal Confidentiality of Alcohol and Drug Abuse Patient Records regulations: The Federal rules restrict any use of the information to criminally investigate or prosecute any alcohol or drug abuse patient.[facility] HospitalIn the event this information is protected by the Federal Confidentiality of Alcohol and Drug Abuse Patient Records regulations: The Federal rules restrict any use of the information to criminally investigate or prosecute any alcohol or drug abuse patient.[facility] HospitalIn the event this information is protected by the Federal Confidentiality of Alcohol and Drug Abuse Patient Records regulations: The Federal rules restrict any use of the information to criminally investigate or prosecute any alcohol or drug abuse patient.[facility] HospitalIn the event this information is protected by the Federal Confidentiality of Alcohol and Drug Abuse Patient Records regulations: The Federal rules restrict any use of the information to criminally investigate or prosecute any alcohol or drug abuse patient.[facility] HospitalIn the event this information is protected by the Federal Confidentiality of Alcohol and Drug Abuse Patient Records regulations: The Federal rules restrict any use of the information to criminally investigate or prosecute any alcohol or drug abuse patient.[facility] HospitalIn the event this information is protected by the Federal Confidentiality of Alcohol and Drug Abuse Patient Records regulations: The Federal rules restrict any use of the information to criminally investigate or prosecute any alcohol or drug abuse patient.[facility] HospitalIn the event this information is protected by the Federal Confidentiality of Alcohol and Drug Abuse Patient Records regulations: The Federal rules restrict any use of the information to criminally investigate or prosecute any alcohol or drug abuse patient.[facility] HospitalIn the event this information is protected by the Federal Confidentiality of Alcohol and Drug Abuse Patient Records regulations: The Federal rules restrict any use of the information to criminally investigate or prosecute any alcohol or drug abuse patient.[facility] HospitalIn the event this information is protected by the Federal Confidentiality of Alcohol and Drug Abuse Patient Records regulations: The Federal rules restrict any use of the information to criminally investigate or prosecute any alcohol or drug abuse patient.[facility] HospitalIn the event this information is protected by the Federal Confidentiality of Alcohol and Drug Abuse Patient Records regulations: The Federal rules restrict any use of the information to criminally investigate or prosecute any alcohol or drug abuse patient.[facility] HospitalIn the event this information is protected by the Federal Confidentiality of Alcohol and Drug Abuse Patient Records regulations: The Federal rules restrict any use of the information to criminally investigate or prosecute any alcohol or drug abuse patient.[facility] HospitalIn the event this information is protected by the Federal Confidentiality of Alcohol and Drug Abuse Patient Records regulations: The Federal rules restrict any use of the information to criminally investigate or prosecute any alcohol or drug abuse patient.[facility] HospitalIn the event this information is protected by the Federal Confidentiality of Alcohol and Drug Abuse Patient Records regulations: The Federal rules restrict any use of the information to criminally investigate or prosecute any alcohol or drug abuse patient.[facility] HospitalIn the event this information is protected by the Federal Confidentiality of Alcohol and Drug Abuse Patient Records regulations: The Federal rules restrict any use of the information to criminally investigate or prosecute any alcohol or drug abuse patient.[facility] HospitalIn the event this information is protected by the Federal Confidentiality of Alcohol and Drug Abuse Patient Records regulations: The Federal rules restrict any use of the information to criminally investigate or prosecute any alcohol or drug abuse patient.[facility] HospitalIn the event this information is protected by the Federal Confidentiality of Alcohol and Drug Abuse Patient Records regulations: The Federal rules restrict any use of the information to criminally investigate or prosecute any alcohol or drug abuse patient.[facility] HospitalIn the event this information is protected by the Federal Confidentiality of Alcohol and Drug Abuse Patient Records regulations: The Federal rules restrict any use of the information to criminally investigate or prosecute any alcohol or drug abuse patient.[facility] Reason for Visit (unrecogniz ed section and content) Reason Comments Spirometry Specialty Diagnoses / Procedures Referred By Contac t Referred To Contact [facility] Diagnoses Dyspnea, unspecified type Procedures SPIROMETRY WITH DILATOR IF OBSTRUCTED BRNCDILAT RSPSE SPMTRY PRE&POST-BRNCDILAT ADMN Shelton gAuilera MD [address] [place] [address] [facility] [place] [address] [place] [address] Referral ID Status Reason Start Date Expiration Date V isits Requested Visits Authorized [id number] Closed Auto-Generate d Referral 08/13/2023 09/11/2024 1 1 Reason Comments FYI-No Action Needed Reason Comments Results Specialty Diagnoses / Procedures Referred By Contac t Referred To Contact [facility] [place] Diagnoses Chronic obstructive pulmonary disease, unspecified COPD type (HCC) Procedures LUNG DIFFUSION CAPACITY (DLCO) DIFFUSING CAPACITY Shelton Aguilera MD [address] [place] [address] [facility] [place] [address] [place] [id number] Referral ID Status Reason Start Date Expiration Date V isits Requested Visits Authorized [id number] Closed Auto-Generate d Referral 08/20/2023 09/18/2024 1 1 Specialty Diagnoses / Procedures Referred By Contac t Referred To Contact [facility] Diagnoses Chronic obstructive pulmonary disease, unspecified COPD type (HCC) Procedures LUNG VOLUMES Shelton Aguilera MD [address] [place] [address] [facility] [place] [id number] Referral ID Status Reason Start Date Expiration Date V isits Requested Visits Authorized [id number] Closed Auto-Generate d Referral 08/20/2023 07/18/2024 1 1 Specialty Diagnoses / Procedures Referred By Contac t Referred To Contact [facility] Diagnoses Chronic obstructive pulmonary disease, unspecified COPD type (HCC) Procedures NITRIC OXIDE, EXHALED NITRIC OXIDE GAS DETERMINATION Shelton Aguilera MD [address] [place] [address] [facility] [place] [address] [place], [place] [id number] Referral ID Status Reason Start Date Expiration Date V isits Requested Visits Authorized [id number] Closed Auto-Generate d Referral 08/20/2023 09/18/2024 1 1 Specialty Diagnoses / Procedures Referred By Contac t Referred To Contact CT IMAGING Diagnoses Wheezing Procedures CT CHEST WO IVCON DIAGNOSTIC COMPUTED TOMOGRAPHY THORAX W/O CNTRST Shelton Aguilera MD [address] [place] [address] Ct Imaging [id number] Referral ID Status Reason Start Date Expiration Date V isits Requested Visits Authorized [id number] Closed Auto-Generate d Referral 08/20/2023 10/03/2023 1 1 Reason Comments Injection Questions Reason Comments New Patient Evaluation Back Pain Lower Reason Onset Date Comments Refill Request 10/11/2023 Reason Onset Date Comments Refill Request 10/19/2023 Reason Comments Procedure MBNB L4/L5 S1 Specialty Diagnoses / Procedures Referred By Contac t Referred To Contact Pain Management / PAIN MANAGEMENT Diagnoses Spondylosis without myelopathy or radiculopathy, lumbar region Lumbago with sciatica, unspecified side Other chronic pain B/L MBNB L4-L5, L5-S1 w fluoro X2 Procedures NJX DX/THER AGT PVRT FACET JT LMBR/SAC 1 LEVEL NJX DX/THER AGT PVRT FACET JT LMBR/SAC 2ND LEVEL PROCEDURE 20 , Bertha, 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 [address] [place] [address] Dhiraj Herr MD [address] [employer] [address] [address] Referral ID Status Reason Start Date Expiration Date Visits Re quested Visits Authorized [id number] Closed 07/19/2023 07/18/2024 1 1 Reason Comments Follow Up Reason Comments Wheezing Reason Comments Radiology MRI Specialty Diagnoses / Procedures Referred By Contac t Referred To Contact MR IMAGING Diagnoses Spinal 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 Procedures MRI LUMBAR SPINE WO IVCON MRI SPINAL CANAL LUMBAR W/O CONTRAST MATERIAL kirstinSteffaniea, 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 [address] [place] [address] [place] [address] Referral ID Status Reason Start Date Expiration Date V isits Requested Visits Authorized [id number] Closed Auto-Generate d Referral 10/29/2023 11/27/2024 1 1 Reason Comments Follow Up After imaging Reason Comments Insurance Denial Reason Comments Procedure Mbb Back Pain Lower - bilateral - right is worse Specialty Diagnoses / Procedures Referred By Contac t Referred To Contact Pain Management / PAIN MANAGEMENT Diagnoses Spondylosis without myelopathy or radiculopathy, lumbar region B/L MBNB L4-L5, L5-S1 w fluoro X2 Procedures NJX DX/THER AGT PVRT FACET JT LMBR/SAC 1 LEVEL NJX DX/THER AGT PVRT FACET JT LMBR/SAC 2ND LEVEL PROCEDURE 20 , Bertha, 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 [address] [place] [address] Dhiraj Herr MD [address] [employer] [facility] [address] [place] [address] Referral ID Status Reason Start Date Expiration Date Visits Re quested Visits Authorized [id number] Closed 12/16/2023 07/18/2024 1 1 Reason Comments Procedure Follow Up MBB Reason Comments Follow Up MBB Specialty Diagnoses / Procedures Referred By Contac t Referred To Contact CT IMAGING Diagnoses Lung nodules Procedures CT CHEST WO IVCON DIAGNOSTIC COMPUTED TOMOGRAPHY THORAX W/O CNTRST Shelton Aguilera MD [address] [place] [address] [place] [address] Referral ID Status Reason Start Date Expiration Date V isits Requested Visits Authorized [id number] Closed Auto-Generate d Referral 11/11/2023 12/10/2024 1 1 Reason Onset Date Comments Refill Request 01/06/2024 Reason Onset Date Comments Refill Request 01/11/2024 Reason Comments Illness [place] N covering urgent pulm [facility] calls Reason Comments Follow Up Low Back Pain Reason Comments Appointment Reason Comments anticoagulation letter Reason Comments Injections questions Reason Comments Patient Question Reason Comments Orders Reason Comments Procedure Specialty Diagnoses / Procedures Referred By Contac t Referred To Contact Pain Management / PAIN MANAGEMENT Diagnoses Spondylosis without myelopathy or radiculopathy, lumbar region ILESI L4-L5 W Fluoro Procedures NJX DX/THER SBST INTRLMNR LMBR/SAC W/IMG GDN PROCEDURE Everton Decker MD [address] [place] [address] Everton Decker MD [address] [place] [address] Referral ID Status Reason Start Date Expiration Date Visits Requested Visits Authorized [id number] Appeal Pending Clearance Not Met - Admin/Chair man/Directo r Advise to Postpone/Re schedule or Not Proceed 03/16/2024 06/14/2024 2 2 Reason Comments Procedure Follow Up Reason Comments Follow Up post procedure Reason Comments injection questions Reason Comments New Patient Reason Comments Procedure MBB Specialty Diagnoses / Procedures Referred By Contac t Referred To Contact Pain Management / PAIN MANAGEMENT Diagnoses Spondylosis without myelopathy or radiculopathy, lumbar region B/L MBNB L3-L4, L4-L5, w fluoro Procedures NJX DX/THER AGT PVRT FACET JT LMBR/SAC 1 LEVEL NJX DX/THER AGT PVRT FACET JT LMBR/SAC 2ND LEVEL PROCEDURE 20 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, 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, 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 [address] [place] [address] Everton Decker MD [address] [facility] [address] [place] [address] Referral ID Status Reason Start Date Expiration Date Visits Re quested Visits Authorized [id number] Closed 04/26/2024 10/23/2024 1 1 Reason Comments Follow Up post procedure Reason Comments Erroneous encounter-disregard Reason Comments Injections MBB Back Pain LOWER BILATERAL Specialty Diagnoses / Procedures Referred By Christinaac t Referred To Contact PAIN MANAGEMENT Diagnoses Spondylosis without myelopathy or radiculopathy, lumbar region Procedures DSTR NROLYTC AGNT PARVERTEB FCT SNGL LMBR/SACRAL DSTR NROLYTC AGNT PARVERTEB FCT ADDL LMBR/SACRAL PreBertha phan, 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 [address] [facility] [address] [place] [address] Spine Ag Hoskins [address] [facility] [address] [place] [address] Referral ID Status Reason Start Date Expiration Date Visits Re quested Visits Authorized [id number] Closed 05/08/2024 11/04/2024 1 1 Reason Comments Appointment Cancelled Reason Comments Established Patient Reason Comments Radiology CT Specialty Diagnoses / Procedures Referred By Contac t Referred To Contact Radiology / RADIO CT SCAN [facility] Diagnoses Other nonspecific abnormal finding of lung field CT chest w/o in scanned docs Procedures DIAGNOSTIC COMPUTED TOMOGRAPHY THORAX W/O CNTRST CT WO [address] Pilar Steele DO [address] [place] [address] [facility] [address] [place] [address] Referral ID Status Reason Start Date Expiration Date Visits Re quested Visits Authorized [id number] Closed 07/19/2023 07/18/2024 1 1 Reason Comments Preparations For Surgery Reason Comments Medical Clearance Reason Onset Date Comments Refill Request 08/02/2024 Reason Comments Post Op Reason Comments Internal Referrals/resources Reason Comments PT Eval Specialty Diagnoses / Procedures Referred By Contac t Referred To Contact [facility] Diagnoses S/P lumbar laminectomy Procedures CONSULT TO PHYSICAL THERAPY PHYSICAL THERAPY EVALUATION HIGH COMPLEX 45 MINS Lois Kee MD [address] [facility] [place] [address] Phone: tel: fax: [facility] [address] [place] [address] Referral ID Status Reason Start Date Expiration Date V isits Requested Visits Authorized [id number] Closed Auto-Generate d Referral 07/19/2024 07/18/2025 1 1 Reason Comments Hospital follow-up Transitional Care Management COPD DC 10/17 Reason Onset Date Comments Pulm Rehab referral 11/01/2024 Reason Comments COPD FU CALL-UNABLE TO LEAVE MESSAGE Reason Comments New patient, to establish relationship Reason Comments COPD FU CALL-CONTACT REACHED Reason Comments Headache JIN x24 hrs w/ vision changes Specialty Diagnoses / Procedures Referred By Contac t Referred To Contact Emergency Medicine Diagnoses Unspecified visual disturbance Procedures NA [facility] [address] [place] [phone] Phone: tel: [facility] [address] [place] [phone] Phone: tel: Referral ID Status Reason Start Date Expiration Date Visits Re quested Visits Authorized [id number] 3 3 Reason Onset Date Comments APPOINTMENT SCHEDULING 12/25/2024 Reason Comments New patient, to establish relationship Specialty Diagnoses / Procedures Referred By Contac t Referred To Contact Pulmonary Medicine Diagnoses COPD exacerbation (HCC) Aura Wagner MD [address] [place] [address] Phone: tel: fax: [facility] [address] [place] [id number] Phone: tel: Referral ID Status Reason Start Date Expiration Date V isits Requested Visits Authorized [id number] Pending Review 10/26/2024 10/26/2025 3 3 Reason Onset Date Comments PFT Appt 02/01/2025 Inactive Administered Medications - up to 3 most recent administrations Administered Medications (un recognized section and content) Medication Order MAR Action Action Date Dose Rate Site bupivacaine(PF) 0.75 % (7.5 mg/mL) 7.5 mg injection (MARCAINE PF) 7.5 mg, OTHER, ONCE, 1 dose, On Kiya 10/28/23 at 1000 Given by LIP 10/28/2023 9:50 AM EDT 7.5 mg lidocaine (PF) 10 mg/mL (1 %) 100 mg injection (XYLOCAINE) 100 mg, OTHER, ONCE, 1 dose, On Kiya 10/28/23 at 1000 Given by LIP 10/28/2023 9:51 AM EDT 100 mg Scheduled Active and Recently Administ ered Medications (unrecognized section and content) Medication Order 10/24/2024 10/25/2024 10/26/2024 albuterol (PROVENTIL) (2.5 MG/3ML) 0.083% nebulizer solution 2.5 mg, Nebulization, EVERY 4 HOURS RT, First dose on Wed10/25/24 at 0000, Until Discontinued 2050 (MAR Hold - Provider: Bertram Patel RT - Reason: RT Child Monitor protocol) 0000 (Automatically Held - Provider: Bertram Patel RT)0400 (Automatically Held - Provider: Bertram Patel RT)0800 (Automatically Held - Provider: Bertram Patel RT)1200 (Automatically Held - Provider: Bertram Patel RT)1600 (Automatically Held - Provider: Bertram Patel RT)2000 (Automatically Held - Provider: Bertram Patel RT) 0000 (Automatically Held - Provider: Bertram Patel RT)0400 (Automatically Held - Provider: Bertram Patel RT)0800 (Automatically Held - Provider: Bertram Patel RT)1200 (Automatically Held - Provider: Bertram Patel RT)1600 (Automatically Held - Provider: Bertram Patel RT)2000 (Automatically Held - Provider: Bertram Villamagna, RT) atorvastatin (LIPITOR) tablet 80 mg, Oral, AT BEDTIME, First dose on Wed10/24/24 at 2200, Until Discontinued 2101 (Given - Provider: Dimitris Mcginnis RN) 2125 (Given - Provider: Lalit Peters RN) 2199 (Due) azithromycin (ZITHROMAX) tablet 250 mg, Oral, DAILY, 4 doses, First dose on Wed10/25/24 at 0900, Last dose on Wed10/28/24 at 0900 0937 (Given - Provider: Juan A Olsen RN) 1311 (Given - Provider: Stephie Phillips, NEENA) cefTRIAXone (ROCEPHIN) 1,000 mg in dextrose 50 mL ivpb 1,000 mg, Intravenous, EVERY 24 HOURS ANTIBIOTIC, 4 doses, First dose on Wed10/25/24 at 1000, Last dose on Wed10/28/24 at 1000 0916 (IV New Bag - Provider: Juan A Olsen RN) 1315 (IV New Bag - Provider: Stephie Phillips, NEENA) Cerovite Jr chew tab 1 Tablet, Oral, DAILY, First dose on Wed10/24/24 at 2100, Until Discontinued 2100 (Given - Provider: Dimitris Mcginnis RN) 0917 (Given - Provider: Juan A Olsen RN) 0835 (Given - Provider: Stephie Phillips, NEENA) clopidogrel (PLAVIX) 75 MG tablet 75 mg, Oral, DAILY, First dose on Wed10/25/24 at 0900, Until Discontinued 915 (Given - Provider: Juan A Olsen RN) 0835 (Given - Provider: Stephie Phillips RN) enoxaparin (LOVENOX) 40 MG/0.4ML injection 40 mg (CANCELED) 40 mg, Subcutaneous, DAILY, First dose (after last modification) on Wed10/24/24 at 2100, Until Discontinued 2101 (Given - Provider: Dimitris Mcginnis RN) 0917 (Given - Provider: Juan A Olsen RN) enoxaparin (LOVENOX) 40 MG/0.4ML injection 40 mg 40 mg, Subcutaneous, 2 TIMES DAILY, First dose (after last modification) on Wed10/25/24 at 2100, Until Discontinued 2126 (Given - Provider: Lalit Peters, NEENA) 0834 (Given - Provider: Stephie Phillips, RN)2100 (Due) folic acid 1 MG tablet 1 mg, Oral, DAILY, First dose on Wed10/26/24 at 0900, Until Discontinued 833 (Given - Provider: Stephie Phillips, RN) folic acid 5 MG/ML injection (CANCELED) 1 mg, Intravenous Push, DAILY, First dose on Wed10/24/24 at 2100, Until Discontinued 53 (Given - Provider: Lalit Peters, NEENA)917 (Given - Provider: Juan A Olsen, NEENA) furosemide (LASIX) 10 mg/mL injection (COMPLETED) 20 mg, Intravenous Push, ONCE, 1 dose, On Wed10/24/24 at 2130 2101 (Given - Provider: Dimitris Mcginnis, NEENA) guaiFENesin (MUCINEX) 600 MG 12 hour tablet 600 mg, Oral, 2 TIMES DAILY, First dose on Wed10/24/24 at 2030, Until Discontinued 2100 (Given - Provider: Dimitris Mcginnis RN) 916 (Given - Provider: Juan A Olsen, NEENA)2125 (Given - Provider: Lalit Peters, NEENA) 0834 (Given - Provider: Stephie Phillips, NEENA)2099 (Due) ipratropium (ATROVENT) 0.02 % nebulizer solution 0.5 mg, Nebulization, EVERY 4 HOURS RT, First dose on Wed10/25/24 at 0000, Until Discontinued 2050 (MAR Hold - Provider: Bertram Patel RT - Reason: RT Unavailable) 0000 (Automatically Held - Provider: Bertram Patel RT)0400 (Automatically Held - Provider: Bertram Patel RT)0800 (Automatically Held - Provider: Bertram Patel RT)1200 (Automatically Held - Provider: Bertram Patel RT)1600 (Automatically Held - Provider: Bertram Patel RT)2000 (Automatically Held - Provider: Bertram Patel RT) 0000 (Automatically Held - Provider: Bertram Patel RT)0400 (Automatically Held - Provider: Bertram Patel RT)0800 (Automatically Held - Provider: Bertram Villamagna, RT)1200 (Automatically Held - Provider: Bertram Patel RT)1600 (Automatically Held - Provider: Bertram Patel RT)2000 (Automatically Held - Provider: Bertram Patel RT) ipratropium-albuterol (DUO-NEB) 0.5-2.5 (3) MG/3ML nebulizer solution 3 mL, Nebulization, EVERY 4 HOURS RT, First dose on Wed10/25/24 at 0000, Until Discontinued 2032 (Given - Provider: Bertram Patel RT) 0001 (Given - Provider: Kesha Solis RT)0402 (Given - Provider: Christen Allen RT)0912 (Given - Provider: Misha Grullon RT)1208 (Given - Provider: Misha Grullon RT)155 (Given - Provider: Misha Grullon RT)2013 (Given - Provider: Sarah Cervantes, RT)2342 (Given - Provider: Sarah Cervantes RT) 0359 (Given - Provider: Sarah Cervantes RT)0844 (Given - Provider: Catherine Grady, RT)1159 (Given - Provider: Catherine Grady RT)1600 (Due)2000 (Due) lisinopril (ZESTRIL) tablet (CANCELED) 2.5 mg, Oral, DAILY, First dose on Wed10/24/24 at 2100, Until Discontinued 2100 (Given - Provider: Dimitris Mcginnis, NEENA) lisinopril (ZESTRIL) tablet (CANCELED) 5 mg, Oral, DAILY, First dose (after last modification) on Wed10/25/24 at 0900, Until Discontinued 916 (Given - Provider: Juan A Olsen, NEENA) lisinopril (ZESTRIL) tablet 10 mg, Oral, DAILY, First dose (after last modification) on Wed10/26/24 at 0900, Until Discontinued 834 (Given - Provider: Stephie Phillips, NEENA) nicotine (NICODERM CQ) 21 mg/24HR patch 21 mg, Transdermal, DAILY, First dose on Wed10/24/24 at 2030, Until Discontinued 2029 (Hold/Not Given - Provider: Dimitris Mcginnis RN - Reason: Clinical contraindications - Comment: Pt had one placed at [facility]) 0915 (Patch Applied - Provider: Juan A Olsen RN) 0834 (Patch Removal - Provider: Stephie Phillips, NEENA)0836 (Patch Applied - Provider: Stephie Phillips RN) pantoprazole (PROTONIX) tablet 20 mg, Oral, DAILY 30 MIN BEFORE BREAKFAST, First dose on Wed10/25/24 at 0830, Until Discontinued 916 (Given - Provider: Juan A Olsen RN) 0835 (Given - Provider: Stephie Phillips RN) polyethylene glycol (MIRALAX) 17 g packet 17 g, Oral, DAILY, First dose on Wed10/24/24 at 2030, Until Discontinued 2025 (Hold/Not Given - Provider: Dimitris Mcginnis RN - Reason: Clinical contraindications) 0900 (Hold/Not Given - Provider: Juan A Olsen RN - Reason: Patient refused) 0841 (Hold/Not Given - Provider: Stephie Phillips RN - Reason: Patient refused) predniSONE (DELTASONE) tablet 40 mg, Oral, DAILY, 5 doses, First dose on Wed10/25/24 at 0900, Last dose on Wed10/29/24 at 0900 0917 (Given - Provider: Juan A Olsen RN) 0835 (Given - Provider: Stephie Phillips RN) senna (SENOKOT) tablet 8.6 mg, Oral, DAILY, First dose on Wed10/24/24 at 2030, Until Discontinued 2025 (Hold/Not Given - Provider: Dimitris Mcginnis RN - Reason: Clinical contraindications) 0900 (Hold/Not Given - Provider: Juan A Olsen RN - Reason: Patient refused) 0841 (Hold/Not Given - Provider: Stephie Phillips RN - Reason: Patient refused) vitamin B-1 (thiamine) injection 200 mg (COMPLETED) 200 mg, Intravenous Push, DAILY, 3 doses, First dose on Wed10/24/24 at 2100, Last dose on Wed10/26/24 at 0900 2102 (Given - Provider: Dimitris Mcginnis RN) 0917 (Given - Provider: Juan A Olsen RN) 0835 (Given - Provider: Stephie Phillips RN) vitamin B-1 (THIAMINE) tablet 100 mg, Oral, DAILY, First dose on Wed10/27/24 at 0900, Until Discontinued PRN Medication Order 10/24/2024 10/25/2024 10/26/2024 acetaminophen (TYLENOL) tablet 650 mg, Oral, EVERY 4 HOURS PRN, Starting on Wed10/24/24 at 1947, Until Discontinued, Mild Pain (pain score 1,2,3) 2101 (Given - Provider: Dimitris Mcginnis RN) albuterol (PROVENTIL) (2.5 MG/3ML) 0.083% nebulizer solution 2.5 mg, Nebulization, EVERY 4 HOURS PRN, Starting on Wed10/24/24 at 1947, Until Discontinued, Shortness of Breath, Wheezing Scheduled Medication Order 11/30/2024 12/01/2024 12/02/2024 acetaminophen (TYLENOL) tablet (COMPLETED) 1,000 mg, Oral, STAT, 1 dose, On 12/02/24 at 1444 1421 (Given - Provid er: Albertina Van RN) iohexol (OMNIPAQUE) 350 MG/ML injection (COMPLETED) 75 mL, Intravenous Push, Once at Radiology exam, 1 dose, Starting on 12/02/24 at 1516, Until 12/02/24 at 1514, Imaging Protocol Orders 1514 (Given - Provid er: Yina Frye) PRN Medication Order 11/30/2024 12/01/2024 12/02/2024 indomethacin (INDOCIN) capsule 50 mg, Oral, PRN, Starting on 12/02/24 at 1523, Until Discontinued, headache FOR RECORDS PERTAINING TO PATIENTS WHO ARE [...] BE BASED ON THE PRIMARY CLINICAL RECORDS. [facility]. provides no warranty or guarantee of the accuracy or completeness of information in this document.
[2025-02-26 21:43] LABS: Prothrombin Time (Protime)PT. 15.3 SECONDS (11.7-14.9)
[2025-02-26 21:44] LABS: Partial Thromboplast Time 34.5 Seconds (24.1-36.2)
--- NOTE | 2025-02-26 21:45 | RAD_ITS ---
EXAM: XR Left Knee Complete, 4 or More Views CLINICAL INDICATION: FALL TECHNIQUE: Four or more views of the left knee. COMPARISON: No relevant prior studies available. 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 No acute fracture. No dislocation. SOFT TISSUES: Unremarkable. RAD/Knee 4 or More Views IMPRESSION: Degenerative changes as above. Reading Location: [id number]
--- NOTE | 2025-02-26 21:47 | RAD_ITS ---
EXAM: XR Chest, 2 Views CLINICAL INDICATION: AMS TECHNIQUE: Frontal and lateral views of the chest. COMPARISON: No relevant prior studies available. FINDINGS: LUNGS AND PLEURAL SPACES: See below. HEART: Cardiomegaly with mild congestion. MEDIASTINUM: Unremarkable. Normal mediastinal contour. BONES/JOINTS: Unremarkable. No acute fracture. RAD/Chest PA and Lateral IMPRESSION: Cardiomegaly with mild congestion. Reading Location: [id number]
[2025-02-26 22:27] LABS: AST(SGOT) 42 U/L (<=37); Alanine Aminotransfer ALT/SGPT 18 U/L (<=46); Albumin, Serum 4.1 g/dL (3.4-4.8); Alkaline Phosphatase 110 U/L (40-129); Anion Gap 18 (5-15); BUN 16 mg/dL (4-19); BUN/Creat Ratio 13.5 RATIO (10-20); Calcium,Total 9.3 mg/dL (7.6-11.0); Carbon Dioxide 18.9 mmol/L (21.0-32.0); Chloride 90 mmol/L (98-108); Estimated Creatinine Clearance 78.80 ml/min (50-250); Globulin 3.8 g/dL (2.2-4.2); Glucose 111 mg/dL (70-99); Potassium 4.0 mmol/L (3.3-5.1); Troponin T High Sensitivity 53 ng/L (<=22)
[2025-02-26 22:27] LABS: FI02 4.0; SITE Not entered; VBG BASE EXCESS 0 mmol/L (-1.0-3.5); VBG PO2 68 mmHg (25-40); VBG SO2 95 % (50-70); VBG TCO2 25 mmol/L (23-33)
[2025-02-26 22:30] LABS: Mucous, Urine 0 SEEN /hpf (<or=2+)
[2025-02-26 22:33] LABS: Color, Urine Yellow (Yellow); Glucose, Dipstick Normal (Normal); Ketone-Dipstick 5 mg/dl (Negative); Leukocyte Esterase-Dipstick Negative /ul (Negative); Nitrite-Dipstick Negative (Negative); Occult Blood-Urine 150 /ul (Negative); Protein-Dipstick 100 mg/dl (Negative); Specific Gravity, Urine 1.020 (1.002-1.030); Urine Bilirubin Dipstick Negative (Negative)
[2025-02-26 22:46] LABS: Fine Granular Cast- Urine 10-25 SEEN /lpf (0-5)
[2025-02-26 22:49] LABS: Red Blood Cells-Urine 0-5 SEEN /hpf (0-5)
[2025-02-26 22:51] LABS: Squamous Epithelial Cells - UA 0-5 SEEN /hpf (0-5)
[2025-02-26] MEDS: Cefepime HCl 2 GM in 0.9% Normal Saline (100mL MB+) 100 ML IV (23:33)
[2025-02-26 23:58] LABS: Troponin T High Sens 2 HR 49 ng/L (<=22)
[2025-02-27] VITALS (33 sets, daily range): BP systolic 115–170; BP diastolic 62–108; PULSE 71–114; RESP 16–39; TEMP 36.5–39.6; O2SAT 90–100; BMI 38.9; BMI 39.0
--- NOTE | 2025-02-27 00:01 | PCM.HP.STD ---
[facility] - General General Date of Admission: 02/27/25 Date of Service: 02/27/25 Chief Complaint: AMS. HPI Narrative ELIS BILLS, is a 64 M with a past medical history of essential hypertension; on lisinopril, hyperlipidemia; on atorvastatin, obesity; with BMI of 38.7 this admission, history of tobacco abuse; with subsequent asthma/COPD on umeclidinium-vilanterol, ipratropium-albuterol q. 4 hours prn plus montelukast, history of EtOH abuse; with patient admitted to drinking ~8-9 beers daily on folate and thiamine supplementation, GERD; on esomeprazole and OA; with spinal stenosis of the lumbar region (without claudication) who presents to [facility] ER complaining of altered mental status. Mr. Bills is not a fully-reliable historian at this time so information was gathered from chart, medical staff and computer. According to the records his states that he had a fall yesterday evening and that he was not acting normally on the evening of February 26, 2025. She informed the ER physician that she was getting ready for work when he began complaining of pain in his knee and they both agreed he should try to sleep in the recliner. She then noted when she was getting ready to leave he was very confused so she activated EMS to have him brought in for further evaluation and treatment. He complains of fever and cough but is confused with no complaints of lightheadedness, visual changes, abdominal pain, nausea, vomiting, diarrhea, constipation, chest pain, palpitations, heart racing, dysuria, hematuria or rash. In the ER he was noted to have a Fever of 102.7 degrees Fahrenheit with Leukocytosis of 17.4K present on admission consistent with CT scan of the chest revealing RLL Pneumonia; likely due to aspiration complicated by Hyponatremia of 126 mmol/L present on admission suspected to be due to Beer Potomania with a UA negative for acute infection and head CT without contrast that revealed small vessel degenerative changes with no acute ICH, midline shift or mass effect with MRI recommended CT of the cervical spine without contrast that revealed no acute fracture, along with a CXR that revealed cardiomegaly with mild congestion and X-rays of the Left knee that revealed severe 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 He was then admitted to the ICU for ongoing care for a stay that is expected to extend beyond 2 midnights. [facility] Medical History Hyperlipemia Hypertension GERD (gastroesophageal reflux disease) Home Medications ?Medication ?Instructions ?Recorded ?Last Taken ?Type atorvastatin 80 mg tablet 80 mg PO DAILY 03/22/22 03/22/22 History clopidogrel 75 mg tablet 75 mg PO DAILY 03/22/22 03/22/22 History lisinopril 2.5 mg tablet 2.5 mg PO DAILY 03/22/22 03/22/22 History esomeprazole magnesium 40 mg 40 mg PO DAILY 02/26/25 Unknown History capsule,delayed release folic acid 1 mg tablet 1 mg PO DAILY 02/26/25 Unknown History ipratropium 0.5 mg-albuterol 3 mg 3 ml continuous nebulization Q4H 02/26/25 Unknown History (2.5 mg base)/3 mL nebulization PRN PRN wheezing soln montelukast 10 mg tablet 10 mg PO DAILY 02/26/25 Unknown History thiamine HCl (vitamin B1) 100 mg 100 mg PO DAILY 02/26/25 Unknown History tablet umeclidinium 62.5 mcg-vilanterol 1 ea inhalation DAILY 02/26/25 Unknown History 25 mcg/actuation powdr for inhalation (Anoro Ellipta) Allergy/AdvReac Type Severity Reaction Status Date / Time Penicillins (PCN) Allergy Unknown - Verified 02/26/25 20:54 WAS A BABY Social History Smoking Status: Current every day smoker tobacco type: cigarettes ROS ROS Narrative ROS was limited by patient confusion and was completed as much as possible in HPI. Vital Signs Vital Signs Vital Signs: 02/26/25 20:50 02/26/25 20:54 02/26/25 20:59 Temperature 102.7 F H 102.7 F H Temperature Source Oral Oral Pulse Rate 106 H 99 Respiratory Rate 28 H 46 H Respiratory Effort Short of Breath Labored Respiratory Depth Shallow Respiratory Pattern Tachypnea Blood Pressure 154/75 H 142/66 H Blood Pressure Mean 101 91 Pulse Ox 94 96 Oxygen Delivery Method Room Air Room Air Room Air 02/26/25 21:01 02/26/25 21:54 02/26/25 22:00 Temperature 100.2 F H 100.2 F H Temperature Source Oral Oral Pulse Rate 94 91 Respiratory Rate 28 H 27 H Respiratory Effort Respiratory Depth Respiratory Pattern Blood Pressure 139/70 H 139/70 H Blood Pressure Mean 93 93 Pulse Ox 97 94 94 Oxygen Delivery Method Room Air Room Air Room Air 02/26/25 22:59 Temperature 99.2 F H Temperature Source Oral Pulse Rate 83 Respiratory Rate 33 H Respiratory Effort Respiratory Depth Respiratory Pattern Blood Pressure 138/74 H Blood Pressure Mean 95 Pulse Ox 100 Oxygen Delivery Method Room Air Weight Weight: 262 lb 5.601 oz Body Mass Index (BMI) 38.7 Physical Exam Const alert and no apparent distress Constitutional Narrative: Obese patient with confusion and nontoxic appearance. General Appearance: cooperative Orientation / Consciousness: confused HEENT normocephalic, head/scalp atraumatic, hearing grossly normal bilaterally and moist oral mucous membranes Eyes PERRL, EOMs intact bilaterally and conjunctivae normal Neck no lymphadenopathy, supple and no JVD Resp normal respiratory effort, no retractions and no use of accessory muscles Resp Narrative: Diminished breath sounds over RLL. Cardio regular rate and regular rhythm GI normal to inspection, nondistended, normoactive bowel sounds, soft to palpation, non-tender and non-distended GI Narrative: Obese. Extremity normal to inspection, full ROM and no clubbing, cyanosis or edema Skin Skin Narrative: Patient has no evidence of rash or jaundice. Neuro CN's II-XII intact bilaterally, moves all extremities and no focal motor deficits Sensorium / Orientation: awake, alert, oriented to person and oriented to place Speech: speech normal Psych affect normal Results Medical Records Data Attestation: I reviewed the patient's medical records Lab / Micro Data Attestation: I reviewed the patient's lab results. 02/26/25 20:55 02/26/25 20:55 Labs: Laboratory Results - last 24 hr 02/26/25 20:20: Urine Color Yellow, Urine Clarity Clear, Urine pH 6.0, Ur Specific [place] 1.020, Urine Protein 100 H, Urine Glucose (UA) Normal, Urine Ketones 5 H, Urine Occult Blood 150 H, Urine Nitrite Negative, Urine Bilirubin Negative, Urine Urobilinogen Normal, Ur Leukocyte Esterase Negative, Urine RBC 0-5 SEEN, Urine WBC 0-5 SEEN, Ur Squamous Epith Cells 0-5 SEEN, Ur Renal Epithelial Cell 0-5 SEEN, Urine Bacteria 3+, Hyaline Casts 5-10 SEEN, Fine Granular Casts 10-25 SEEN, Urine Mucus 0 SEEN 02/26/25 20:55: WBC 17.4 H, RBC 4.39 L, Hgb 13.1, Hct 37.2 L, MCV 84.7, MCH 29.8, MCHC 35.2, RDW Std Deviation 42.0, RDW Coeff of [place] 13.4, Plt Count 315, MPV 9.5, Immature Gran % (Auto) 0.700, Neut % (Auto) 87.3 H, Lymph % (Auto) 3.9 L, [place] % (Auto) 7.3, Eos % (Auto) 0.3, Baso % (Auto) 0.5, Absolute Neuts (auto) 15.2 H, Absolute Lymphs (auto) 0.68 L, Nucleated RBC % 0, PT 15.3 H, INR 1.2, APTT 34.5, Sodium 126 L, Potassium 4.0, Chloride 90 L, Carbon Dioxide 18.9 L, Anion Gap 18 H, BUN 16, Creatinine 1.19, Estim Creat Clear Calc 78.80, Est GFR (MDRD) Non-Af 68, BUN/Creatinine Ratio 13.5, Glucose 111 H, Lactic Acid < 1.0, Calcium 9.3, Total Bilirubin 0.88, AST 42 H, ALT 18, Alkaline Phosphatase 110, Troponin T High Sens 53 H, Total Protein 7.9, Albumin 4.1, Globulin 3.8, Albumin/Globulin Ratio 1.1 02/26/25 23:12: Troponin T Hi Sens 2 Hr 49 H ABG Data ABG results: ABG 02/26/25 22:22 Specimen Type SERGIO Sample Site Not entered O2 % 4.0 VBG pH 7.47 H VBG pO2 68 H VBG HCO3 24 VBG Total CO2 25 VBG O2 Sat (Calc) 95 H VBG Base Excess 0 POC Mix VBG pCO2 Pt Tmp 32.9 L O2 Delivery Device Not entered Imaging Radiology Impression Brain CT 02/26/25 21:30 IMPRESSION: 1. Small vessel ischemic/degenerative changes. 2. No acute intracranial hemorrhage, midline shift or mass effect. If symptoms persist, further evaluation with MRI is recommended. Reading Location: [facility] Cervical Spine CT 02/26/25 21:30 IMPRESSION: No acute fracture. Reading Location: [facility] Knee X-Ray 02/26/25 21:45 IMPRESSION: Degenerative changes as above. Reading Location: [facility] Chest X-Ray 02/26/25 21:47 IMPRESSION: Cardiomegaly with mild congestion. Reading Location: [facility] Imaging Services [address] [place] [address] [id number] Chest without Contrast MR#: [id number] Acct: [id number] Name: ELIS BILLS Rep #: [id number] : 1960 M 64 From: Willy San MD PCP: Fidencio Sanders PA-C Status: ADM IN Study: Chest without Contrast Date of Exam: 02/27/25 Exam# [id number] Ordering Dr: Austin Perez DO PROCEDURE: CHEST WITHOUT CONTRAST 02/27/2025 REASON FOR EXAM: FEVER TECHNIQUE: Chest CT without contrast. Coronal and Sagittal reconstruction series were provided. One or more dose reduction techniques were used (e.g., Automated exposure control, adjustment of the mA and/or kV according to patient size, use of iterative reconstruction technique RADIATION DOSE SUMMARY: CTDlvol: 20 mGy DLP: 721 mGycm COMPARISON: Chest x-ray 02/26/2025 FINDINGS: Unremarkable base of neck and axilla. Normal esophagus. Upper limits of normal heart size. No acute vascular pathology on noncontrast scanning. Mediastinal and right hilar adenopathy, likely reactive. Thoracic spine degeneration. Mild scoliosis. No acute chest wall findings. No acute upper abdominal findings. Central airways are patent. There is right lower lobe consolidative airspace disease. There is under aeration at the left base. CT/Chest without Contrast IMPRESSION: Right lower lobe pneumonia. Reading Location: [place] [id number] CC: STEVE Sanders; Dr. Austin Perez, DO ~ [employer] Product Owner: Signed Assessment & Plan Assessment/Plan (1) Sepsis: QUALIFIERS: Sepsis acute organ dysfunction status: with acute organ dysfunction Sepsis type: sepsis due to unspecified organism Severe sepsis acute organ dysfunction type: encephalopathy Severe sepsis shock status: without septic shock Qualified Code(s): A41.9 - Sepsis, unspecified organism; R65.20 - Severe sepsis without septic shock; G93.41 - Metabolic encephalopathy (2) Aspiration pneumonia: QUALIFIERS: Aspiration pneumonia type: unspecified Laterality: right Lung location: lower lobe of lung Qualified Code(s): J69.0 - Pneumonitis due to inhalation of food and vomit (3) Fever: QUALIFIERS: Fever type: unspecified Qualified Code(s): R50.9 - Fever, unspecified (4) Leukocytosis: QUALIFIERS: Leukocytosis type: unspecified Qualified Code(s): D72.829 - Elevated white blood cell count, unspecified (5) Hyponatremia: (6) Acute metabolic encephalopathy: (7) Alcohol abuse: (8) Tobacco abuse: (9) Obesity (BMI 30-39.9): PLAN: Plan 1. Fever of 102.7 degrees Fahrenheit with Leukocytosis of 17.4K present on admission consistent with CT of chest positive for RLL Pneumonia likely due to Aspiration with possible Sepsis - Admit to ICU. We will continue IV cefepime and IV vancomycin begun in ER and treat according to Sepsis protocol on aspiration precautions. Give ondansetron prn for nausea/vomiting. Give acetaminophen prn for pain or fever. 2. Hyponatremia of 126 mmol/L present on admission suspected to be due to Beer Potomania complicating #1 - Give NS IVF. Urine specific gravity in normal range at 1.02 on admission. Check urine and serum osmolality. Recheck CMP in AM to follow trend. 3. Acute Metabolic Encephalopathy in the setting of known Chronic EtOH Abuse compounding #1 & #2 - We will minimize RN PATIENT CARE-active medications in an effort to allow sensorium to clear. JAMI and UDS pending. EtOH Cessation will be strongly encouraged with patient started on phenobarbital taper to prevent impending EtOH withdrawal. 4. History of tobacco abuse; with subsequent asthma/COPD on umeclidinium-vilanterol, ipratropium-albuterol q. 4 hours prn plus montelukast adding to the medical complexity of #1 - #3 - Stable with no evidence of acute flare at this time. Continue scheduled and prn nebulizers/inhalers. Tobacco Cessation will be strongly encouraged with Nicotine patch offered to control cravings. 5. Obesity (class II); with BMI of 38.7 this admission adding to the burden of disease outlined from #1 - #4 - Weight loss will be recommended. Check TSH. This complicates his case and may hamper recovery. 6. Essential hypertension; on lisinopril - Hold scheduled antihypertensives in light of #1. 7. Hyperlipidemia; on atorvastatin - Resume statin and check Lipid Profile. 8. GERD; on esomeprazole - Maintain PPI as previous. 9. OA; with spinal stenosis of the lumbar region (without claudication) and severe DJD of the Left knee noted on admission X-rays - Give acetaminophen prn as outlined in #1. 10. DVT prophylaxis - Enoxaparin 40 mg sq daily plus SCD's. Total time: Approximately (but not less than) 75 minutes. Sepsis Attestation Sepsis Alert: Yes Sepsis Attestation: Sepsis Ruled Out Date exam was performed: 02/27/25 Time exam was performed: 12:45 Possible Source of Sepsis: Pulmonary Sepsis Organ Dysfunction Criteria Present: New/Unexplained change in mental status Supportive Findings: CT chest positive for RLL Pneumonia likely due to Aspiration with Fever of 102.7 degrees Fahrenheit, Leukocytosis of 17.4K and Altered Mental Status all present on admission. Fluid Resuscitation Fluid resuscitation indicated?: Yes Fluid Resuscitation ordered: 30 ml/kg fluid bolus ordered Amount of fluid ordered: 3 Sepsis Note Date exam was performed: 02/27/25 Time exam was performed: 04:45 Sepsis Attestation: Sepsis re-evaluation was performed Response to fluids: Fluid responsive hypotension Charges/Coding Visit Charges Inpatient E&M: 98527 Init Hosp L3
--- OUTSIDE RECORDS SUMMARY | 2025-02-27 00:23 | XMS RPT_ITS | CCD ---
Author Organization [facility] Care Team Providers Care Inspector Motor Vehicles Name Role Phone Unavailable Primary Care Provider UnavailPilar Nayak DO Primary Care Provider [phone] PROVIDER, UNKNOWN Referring Unavailable PILAR STEELE F Primary Care Unavailable Myla COYLE Pilar F Primary Care Provider Myla Pilar Primary Care Unavailable Pilar Steele Attending Unavailable Myla Pilar Referring Unavailable Juarez Dewitt Attending Unavailable Myla Pilar Primary Care Unavailable Myla Pilar Primary Care Unavailable Pilar Steele Attending Unavailable Myla Pilar Referring Unavailable Myla COYLE Pilar F Primary Care Provider Unavailable Primary Care Provider Unavailoseas Wu RN, [...] BERTHA Referring Unavailable DHIRAJ HERR Attending Unavailable MYLA, PILAR F Primary Care Unavailable YASHIRA GONSALES Attending Unavailable MYLA, PILAR F Primary Care Unavailable LOIS KEE Attending Unavailable MYLA, PLIAR F Primary Care Unavailable LOIS KEE Referring Unavailable MYLA, PILAR F Primary Care Unavailable PREBISH, BERTHA Attending Unavailable MYLA, PILAR F Primary Care Unavailable PREBISH, BERTHA Referring Unavailable EVERTON DECKER Attending Unavailable MYLA, PILAR F Primary Care Unavailable PILAR REYES Referring Unavailable MYLA, PILAR F Primary Care Unavailable VARUN PRATT Attending Unavailable LOIS KEE Referring Unavailable Veronica Murillo Unavailable [phone] NON-EPICCARE, PROVIDER Primary Care Unavailab le [...] (5 sources) Penicillins Drug Allergy 5 Unknown [facility] (20 sources) Penicillins; Translations: [PENICILLINS] Propensity to adverse reactions to drug 5 Unknown, Other: See Comments [facility] (16 sources) Roflumilast; Translations: [ROFLUMILAST] Drug Allergy 4 Rash [facility] Work Phone: (10 sources) Roflumilast Drug Allergy 4 Rash [facility] Medications Current Medications Medication Drug Class(es) Dates Sig (Normalized) Sig (Original) acetaminophen 325 mg / HYDROcodone bitartrate 5 mg oral tablet (4 sources) Opioid Agonist Start: 03-22-2022 take 1 tablet by mouth every six hours as needed Hydrocodone-Aceta minophen Active 1 TABLET PO EVERY 6 HOURS NEEDED 12 March 22, 2022 [id number] 200 actuat albuterol 0.09 mg/actuat metered dose [...] Start: 08-27-2014 take 2 tablets by mo [facility] once daily predniSONE (DELTASONE) 20 mg tablet Indications: Acute bronchitis Take 2 tablet by mouth daily for 5 days. 10 tablet 0 08/27/2014 Active Comment on above: Take 2 tablet by [facility] daily for 5 days. Take 1 tablet by [facility] as directed. TID for 4 days then [...] for 23 days. Take 1 tablet by [facility] two times a day. Patient should start [...] at 0830, Until Discontinued polyethylene glycol 3350 03633 mg powder for oral solution (7 sources) [...] Interpretation Reference Range Facility Telephone Encounteron 2024 Internal Audit Senior Manager Authentication Interface Message Text Lm on vcml to scheduled PFT Normal [facility] Internal Audit Senior Manager Authentication Interface Message Text Please contact to reschedule PFT appt. Normal [facility] CBC WITH DIFFERENTIALon 12-18 Basophils (Bld) [#/Vol] 0.10 10*3/uL Normal 0.00-0.20 [facility] Comment on above: Performed By: #### C BCDSAT ####[facility] [id number] [place], [place], Basophils/100 WBC (Bld) 1.3 % Normal <=1.9 [facility] Comment on above: Performed By: #### C VIKIDSAT ####[facility] [id number] [place] [address], Eosinophils (Bld) [#/Vol] 0.07 10*3/uL Normal 0.00-0.70 [facility] Comment on above: Performed By: #### C BCDSAT ####[facility] [id number] [place] [address], Eosinophils/100 WBC (Bld) 1.0 % Normal 0.1-4.0 [facility] Comment on above: Performed By: #### C VIKIDSAT ####[facility] [id number] [place] [address], Erythrocyte distribution width (RBC) [Ratio] 13.9 % Normal 11.5-14.5 [facility] Comment on above: Performed By: #### C BCDSAT ####[facility] [id number] [place], [place], Hematocrit (Bld) [Volume fraction] 41.4 % Normal 41.0-53.0 [facility] Comment on above: Performed By: #### C BCDSAT ####[facility] [id number] [place] [address], Hemoglobin (Bld) [Mass/Vol] 14.5 g/dL Normal 13.9-16.3 [facility] Comment on above: Performed By: #### C BCDSAT ####[facility] [id number] [place] [address], Lymphocytes (Bld) [#/Vol] 2.04 10*3/uL Normal 1.00-4.80 The [facility] Comment on above: Performed By: #### C BCDSAT ####[facility] [id number] [place], [place], Lymphocytes/100 WBC (Bld) 26.5 % Normal 24.0-44.0 The [facility] Comment on above: Performed By: #### C BCDSAT ####[facility] [id number] [place], [place], MCH (RBC) [Entitic mass] 30.3 pg Normal 26.0-34.0 The [facility] Comment on above: Performed By: #### C BCDSAT ####[facility] [id number] [place], [place], MCHC (RBC) [Mass/Vol] 35.1 g/dL Normal 32.0-35.9 The [facility] Comment on above: Performed By: #### C BCDSAT ####[facility] [id number] [place], [place], MCV (RBC) [Entitic vol] 87 fL Normal 80-100 The [facility] Comment on above: Performed By: #### C BCDSAT ####[facility] [id number] [place], Monocytes (Bld) [#/Vol] 0.73 10*3/uL Normal 0.20-1.00 The [facility] Comment on above: Performed By: #### C BCDSAT ####[facility] [id number] [place], [place], Monocytes/100 WBC (Bld) 9.5 % Normal 2.0-11.0 The [facility] Comment on above: Performed By: #### C BCDSAT ####[facility] [id number] [place], [place], Neutrophils (Bld) [#/Vol] 4.73 10*3/uL Normal 1.50-8.00 [facility] Comment on above: Performed By: #### C BCDSAT ####[facility] [id number] [place], [place], Neutrophils/100 WBC (Bld) 61.7 % Normal 31.0-76.0 [facility] Comment on above: Performed By: #### Cosmo JOSEPHAT ####[facility] [id number] [place], [place], Platelet mean volume (Bld) [Entitic vol] 7.0 fL Low 7.5-11.2 [facility] Comment on above: Performed By: #### Cosmo JOSEPHAT ####[facility] [id number] [place], [place], Platelets (Bld) [#/Vol] 323 10*3/uL Normal 150-400 The [facility] Comment on above: Performed By: #### Cosmo JOSEPHAT ####[facility] [id number] [place], [place], RBC (Bld) [#/Vol] 4.79 10*6/uL Normal 4.50-5.90 The [facility] Comment on above: Performed By: #### Cosmo JOSEPHAT ####[facility] PATH[facility] [id number] [place] [address], WBC (Bld) [#/Vol] 7.7 10*3/uL Normal 4.5-11.5 The [facility] Comment on above: Performed By: #### Cosmo JOSEPHAT ####[facility] [id number] [place], [place], IMMUNOGLOBULIN Janusz IGE 156.3 IU/mL Normal <158.0 The [facility] Comment on above: Performed By: #### I GE #### [facility] LABORATORY [address] [place] [address], INHALANT ALLERGEN PANELon A. alternata IgE Qn (S) 0.25 kU/L [facility] A. alternata IgE RAST class (S) 0 Class [facility] A. fumigatus IgE Qn (S) kU/L kU/L [facility] A. fumigatus IgE RAST class (S) 0 Class [facility] Belizean house dust mite IgE Qn (S) kU/L kU/L [facility] Bel[place]an house dust mite IgE RAST class (S) 0 Class [facility] Boxelder IgE Qn (S) kU/L kU/L [facility] Boxelder IgE RAST class (S) 0 Class [facility] Cat dander IgE Qn (S) kU/L kU/L [facility] Cat dander IgE RAST class (S) 0 Class [facility] Cockroach IgE Qn (S) 0.14 kU/L [facility] Cockroach IgE RAST class (S) 0 Class [facility] Common Ragweed 0 Class [facility] Common Ragweed IgE Qn (S) kU/L kU/L [facility] Common Ragweed IgE RAST class (S) kU/L kU/L [facility] Dog dander IgE Qn (S) kU/L kU/L [facility] Dog dander IgE RAST class (S) 0 Class [facility] Setomelanomma rostrata IgE Qn (S) kU/L kU/L [facility] Setomelanomma rostrata IgE RAST class (S) 0 Class [facility] Raul Grass 0 Class [facility] Raul IgE Qn (S) kU/L kU/L [facility] [place] IgE RAST class (S) 0 Class [facility] IgE (kU/L) Interp.: <0.35 Class 0 Below Detect. 0.35 - 0.69 Class 1 Low 0.70 - 3.49 Class 2 Moderate 3.50 - 17.49 Class 3 High 17.50- 52.49 Class 4 Very High 52.50- 99.99 Class 5 Very High >=100 Class 6 Very High [facility] ALTERNARIA ALTERNATA 0.25 kU/L Normal [facility] Comment on above: Order Comment: Pyatt ignacio troponin can result from acute myocardial [...] #### H STRP #### [facility] [address] [place] [address], [phone] ALTERNARIA ALTERNATA CLASS 0 Class Normal [facility] Comment on above: Order Comment: Pyatt ignacio troponin can result from acute myocardial [...] #### H STRP #### [facility] [address] [place] [address], [phone] ASPERGILLUS FUMIGATUS < 0.10 Normal [facility] Comment on above: Order Comment: Pyatt ignacio troponin can result from acute myocardial [...] H STRP #### [facility] [address] [place], [address] ASPERGILLUS FUMIGATUS CLASS 0 Class Normal [facility] Comment on above: Order Comment: Pyatt ignacio troponin can result from acute myocardial [...] #### H STRP #### [facility] [address] [place] [address], [phone] BOX ELDER < 0.10 Normal [facility] Comment on above: Order Comment: Pyatt ignacio troponin can result from acute myocardial [...] #### H STRP #### S PATHOLOGY LABORATORY [address] [place] [address], [phone] BOX ELDER CLASS 0 Class Normal [facility] Comment on above: Order Comment: Pyatt ignacio troponin can result from acute myocardial [...] H STRP #### [facility] [address] [place], [address] CAT DANDER < 0.10 Normal [facility] Comment on above: Order Comment: Pyatt ignacio troponin can result from acute myocardial [...] #### H STRP #### [facility] [address] [place] [address], [phone] CAT DANDER CLASS 0 Class Normal [facility] Comment on above: Order Comment: Pyatt ignacio troponin can result from acute myocardial [...] #### H STRP #### [facility] [address] [place] [address], [phone] COCKROACH 0.14 kU/L Normal [facility] Comment on above: Order Comment: Pyatt ignacio troponin can result from acute myocardial [...] #### H STRP #### [facility] [address] [place] [address], [phone] COCKROACH CLASS 0 Class Normal [facility] Comment on above: Order Comment: Pyatt ignacio troponin can result from acute myocardial [...] #### H STRP #### [facility] [address] [place] [address], [phone] COMMON RAGWEED < 0.10 Normal [facility] Comment on above: Order Comment: Pyatt ignacio troponin can result from acute myocardial [...] #### H STRP #### [facility] [address] [place] [address], [phone] COMMON RAGWEED CLASS 0 Class Normal [facility] Comment on above: Order Comment: Pyatt ignacio troponin can result from acute myocardial [...] H STRP #### S PATHOLOGY LABORATORY [address] [place], [place], D. FARINAE (DUST MITE) CLASS 0 Class Normal [facility] Comment on above: Order Comment: Pyatt ignacio troponin can result from acute myocardial [...] H STRP #### S PATHOLOGY LABORATORY [address] [place], [place], D. FARINAE (HOUSE DUST MITE) < 0.10 Normal [facility] Comment on above: Order Comment: Pyatt ignacio troponin can result from acute myocardial [...] #### H STRP #### [facility] [address] [place] [address], [phone] DOG DANDER < 0.10 Normal [facility] Comment on above: Order Comment: Pyatt ignacio troponin can result from acute myocardial [...] #### H STRP #### [facility] [address] [place] [address], [phone] DOG DANDER CLASS 0 Class Normal [facility] Comment on above: Order Comment: Pyatt ignacio troponin can result from acute myocardial [...] #### H STRP #### [facility] [address] [place] [address], [phone] HELMINTHOSPORIUM HALODES < 0.10 Normal [facility] Comment on above: Order Comment: Pyatt ignacio troponin can result from acute myocardial [...] #### H STRP #### [facility] [address] [place] [address], [phone] HELMINTHOSPORIUM HALODES CLASS 0 Class Normal [facility] Comment on above: Order Comment: Pyatt ignacio troponin can result from acute myocardial [...] H STRP #### [facility] [address] [place], [address] OAK < 0.10 Normal [facility] Comment on above: Order Comment: Pyatt ignacio troponin can result from acute myocardial [...] #### H STRP #### S PATHOLOGY LABORATORY [address] [place] [address], OAK CLASS 0 Class Normal [facility] Comment on above: Order Comment: Pyatt ignacio troponin can result from acute myocardial [...] H STRP #### [facility] [address] [place], [place], RAUL GRASS < 0.10 Normal [facility] Comment on above: Order Comment: Pyatt ignacio troponin can result from acute myocardial [...] #### H STRP #### [facility] [address] [place] [address], [phone] RAUL JARRELL CLASS 0 Class Normal [facility] Comment on above: Order Comment: Pyatt ignacio troponin can result from acute myocardial [...] #### H STRP #### [facility] [address] [place] [address], [phone] Laboratory - Hematology and Cell countson 01-08-2025 Basophils (Bld) [#/Vol] 0.1 10*3/uL 0.00 - 0.20 K/uL [facility] Basophils/100 WBC (Bld) 1.3 % NINF - 1.9 % [facility] Eosinophils (Bld) [#/Vol] 0.07 10*3/uL 0.00 - 0.70 K/uL [facility] Eosinophils/100 WBC (Bld) 1 % 0.1 - 4.0 % [facility] Erythrocyte distribution width (RBC) [Ratio] [...] 7 fL Low 7.5 - 11.2 fL [facility] Platelets (Bld) [#/Vol] 323 10*3/uL 150 - 400 K/uL [facility] RBC (Bld) [#/Vol] 4.79 10*6/uL [facility] WBC (Bld) [#/Vol] 7.7 10*3/uL 4.5 - 11.5 K/uL [facility] Laboratory - Serology - non- microon 01-08-2025 Immune complex IgE Qn 156.3 NINF [facility] No Panel Informationon 01-08 Interpretation and review of laboratory results Normal [facility] Interpretation and review of laboratory results Abnormal [facility] Progress Noteson 01-08-2025 Internal Audit Senior Manager Authentication Interface Message Text Division of Pulmonary, [...] this hospital course he was seen by [facility] pulmonary in October and then 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 [place] (no OV notes available) Per patient and [...] -- -- 0.07 <0.03 Modified Medical Research [place] (mMRC) dyspnea scale Grade Description of breathlessness [...] + PRN 2L with exertion Occupation/Exposures: Occupation: [employer] Born/raised: [place] Pets: 1 dog Triggers: highlighted if positive [...] - Connective tissue disorders; SLE, Sjogren's, RA, Tracy's - Iritable bowel disease - Malignancy or [...] (CVX=15) 05/26/2017 Influenza, injectable, quadrivalent, preservative free (REG=207) 06/04/2017, 04/24/2019 Influenza, injectable, trivalent, preservative free (TGS=938) 06/05/2015, 05/26/2017 Pneumococcal conjugate 13 valent (PCV13) (BAS=736) 06/08/2015, 05/26/2017 Pneumococcal polysaccharide 23 Valent (PPSV23) (CVX=33) 06/04/2017 Tdap (ZCO=419) 06/14/2023 Pended (more content not included)... Normal [facility] Internal Audit Senior Manager Authentication Interface Message Text Patient was identified by name and date of . Barak Cerrato MA .Patient at risk for falls:No Falls Risk protocol implemented: N/A Normal [facility] Telephone Encounteron 2024 Internal Audit Senior Manager Authentication Interface Message Text Neurology Clinical Boarding House Manager Note Attempted to call patient. LVM to return call to this RN to schedule a neurology appt for JIN with Dr Flannery. Letter sent SUSY Flood, RN, [facility] Clinical Boarding House Manager, Neurology Normal [facility] Consultson 12-07-2024 Internal Audit Senior Manager Authentication Interface Message Text NEUROLOGY INITIAL CONSULT [...] showing no acute abnormalities but with R LEADITE HEATER irregularity that was recanalized since 2019 CTA [...] medial rectus muscle. Recanalization of the right LEADITE HEATER with irregularity of the vessel. No significant stenosis, dissection, or aneurysm in the intracranial or extracranial circulation. 04/2019 CTA head and neck: IMPRESSION: 1. 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 No evidence of acute infarct or hemorrhage. 2. Mild atherosclerotic disease of the cervical and intracranial ICAs without significant stenosis or occlusion. 3. Multifocal tree-in-bud opacities within the lung apices, likely smoking-rel (more content not included)... Normal [facility] ED Provider Noteson 12-08-19 Internal Audit Senior Manager Authentication Interface Message Text MH for BM [...] unspecified headache type [R51.9, G89.29] Normal [facility] Internal Audit Senior Manager Authentication Interface Message Text --------- HISTORY OF [...] Notes: Reviewed and utilized the nursing notes. Groover And Striper Operator: not needed - patient preferred language is Malagasy. External Medical Records: The patient's available past medical records and past encounters were reviewed. Summary of pertinent elements include: 12/02/24: [facility] ED: Similar sx headache, left sided vision loss Utility Clerk consult evaluation unremarkable. No concern for carotid artery disease or GCA Pt was recommended staying in the CDU for neuro consult Pt left AMA before placement in CDU CTA Head/Neck No acute intracranial abnormality Enlargement of the left medial rectus muscle. Recanalization of the right LEADITE HEATER with irregularity of the vessel. No significant [...] and (more content not included)... Normal [facility] BASIC METABOLIC PANELon 05- Anion gap [Moles/Vol] 11 mmol/L Normal 10-20 [facility] Comment on above: Performed By: #### H STRP #### S PATHOLOGY LABORATORY [address] [place] [address], Calcium [Mass/Vol] 9.4 mg/dL Normal 8.6-10.3 [facility] Comment on above: Performed By: #### H STRP #### S PATHOLOGY LABORATORY [address] [place] [address], Chloride [Moles/Vol] 99 mmol/L Normal 98-107 [facility] Comment on above: Performed By: #### H STRP #### S PATHOLOGY LABORATORY [address] [place] [address], CO2 [Moles/Vol] 29 mmol/L Normal 21-31 [facility] Comment on above: Performed By: #### H STRP #### [facility] [address] [place] [address], Creatinine [Mass/Vol] 0.89 mg/dL Normal 0.70-1.30 The [facility] Comment on above: Performed By: #### H STRP #### [facility] [address] [place] [address], ESTIMATED GFR (CKD-EPI) 95 mL/min/1.73sqm Normal >=60 [facility] Comment on above: Result Comment: 2020 [...] Inclusion of Race in Diagnosing Kidney Disease. [place] Journal of Kidney Diseases 2021;79(2):268-88.e1. 2. N Engl J Med 2020 Vol. 385 Issue 19 Pages [phone] Performed By: #### H STRP #### [facility] [address] [place], [place], Glucose [Mass/Vol] 90 mg/dL Normal 74-109 [facility] Comment on above: Performed By: #### H STRP #### [facility] [address] [place], [place], Potassium [Moles/Vol] 5.0 mmol/L Normal 3.5-5.0 [facility] Comment on above: Result Comment: Hemo lysis present Performed By: #### H STRP #### [facility] [address] [place] [address], Sodium [Moles/Vol] 134 mmol/L Low 136-145 [facility] Comment on above: Performed By: #### H STRP #### [facility] [address] [place], [place], Urea nitrogen [Mass/Vol] 11 mg/dL Normal 7-25 [facility] Comment on above: Performed By: #### H STRP #### [facility] [address] [place], [place], Basic metabolic 2000 panelon 12-02-2024 Anion gap [Moles/Vol] 11 mmol/L 10 - 20 [facility] Calcium [Mass/Vol] 9.4 mg/dL 8.6 - 10. [...] Inclusion of Race in Diagnosing Kidney Disease. [place] Journal of Kidney Diseases 2021;79(2):268-88.e1. 2. N Engl J Med 2020 Vol. 385 Issue 19 Pages 4131-2643 Glucose [Mass/Vol] 90 mg/dL 74 - 109 mg/dL [facility] Interpretation and review of laboratory results Abnormal [facility] Potassium [Moles/Vol] 5 mmol/L 3.5 - 5.0 mmol/L [facility] Comment on above: Hemolysis present Sodium [Moles/Vol] 134 mmol/L Low 136 - 145 mmol/L [facility] Urea nitrogen [Mass/Vol] 11 mg/dL 7 - 25 mg/dL [facility] C-REACTIVE PROTEINon 12-02- 025 CRP [Mass/Vol] mg/dL NINF - 0.5 mg/dL [facility] Interpretation and review of laboratory results Normal [facility] CRP [Mass/Vol] mg/L Normal <0.5 [facility] Comment on above: Performed By: #### H STRP #### [facility] [address] [place] [address], [phone] CBC WITH DIFFERENTIALon 11-16 Basophils (Bld) [#/Vol] [...] (Bld) [#/Vol] 0.08 10*3/uL Normal 0.00-0.20 [facility] Comment on above: Performed By: #### I GE #### S PATHOLOGY LABORATORY [address] [place] [address], [phone] Basophils/100 WBC (Bld) 1.0 % Normal <=1.9 [facility] Comment on above: Performed By: #### I GE #### S PATHOLOGY LABORATORY [address] [place], [place], Eosinophils (Bld) [#/Vol] 0.13 10*3/uL Normal 0.00-0.70 [facility] Comment on above: Performed By: #### I GE #### S PATHOLOGY LABORATORY [address] [place], [place], Eosinophils/100 WBC (Bld) 1.6 % Normal 0.1-4.0 [facility] Comment on above: Performed By: #### I GE #### [facility] PATH[facility]ORATORY [address] [place], [place], Erythrocyte distribution width (RBC) [Ratio] 15.8 % High 11.5-14.5 [facility] Comment on above: Performed By: #### I GE #### [facility] PATH[facility]OR[facility] [address] [place], [place], Hematocrit (Bld) [Volume fraction] 38.6 % Low 41.0-53.0 [facility] Comment on above: Performed By: #### I GE #### [facility] PATH[facility]OR[facility] [address] [place], [place], Hemoglobin (Bld) [Mass/Vol] 13.7 g/dL Low 13.9-16.3 [facility] Comment on above: Performed By: #### I GE #### [facility] PATH[facility] [address] [place], [place], Lymphocytes (Bld) [#/Vol] 2.20 10*3/uL Normal 1.00-4.80 [facility] Comment on above: Performed By: #### I GE #### [facility] PATH[facility] [address] [place], [place], Lymphocytes/100 WBC (Bld) 27.4 % Normal 24.0-44.0 [facility] Comment on above: Performed By: #### I GE #### S PATHOLOGY LABORATORY [address] [place], [place], MCH (RBC) [Entitic mass] 30.7 pg Normal 26.0-34.0 [facility] Comment on above: Performed By: #### I GE #### [facility] PATH[facility]OR[facility] [address] [place] [address], MCHC (RBC) [Mass/Vol] 35.5 g/dL Normal 32.0-35.9 [facility] Comment on above: Performed By: #### I GE #### [facility] PATH[facility] [address] [place] [address], MCV (RBC) [Entitic vol] 86 fL Normal 80-100 [facility] Comment on above: Performed By: #### I GE #### [facility] PATH[facility] [address] [place] [address], MONOCYTE DISTRIBUTION WIDTH 16 Normal <=20 [facility] Comment on above: Performed By: #### I GE #### [facility] PATH[facility] [address] [place] [address], Monocytes (Bld) [#/Vol] 1.00 10*3/uL Normal 0.20-1.00 [facility] Comment on above: Performed By: #### I GE #### [facility] PATH[facility] [address] [place] [address], Monocytes/100 WBC (Bld) 12.4 % High 2.0-11.0 [facility] Comment on above: Performed By: #### I GE #### [facility] PATH[facility] [address] [place] [address], Neutrophils (Bld) [#/Vol] 4.64 10*3/uL Normal 1.50-8.00 [facility] Comment on above: Performed By: #### I GE #### [facility] PATH[facility] [address] [place] [address], Neutrophils/100 WBC (Bld) 57.7 % Normal 31.0-76.0 [facility] Comment on above: Performed By: #### I GE #### [facility] PATH[facility] [address] [place] [address], Platelet mean volume (Bld) [Entitic vol] 7.5 fL Normal 7.5-11.2 [facility] Comment on above: Performed By: #### I GE #### [facility] PATH[facility] [address] [place] [address], Platelets (Bld) [#/Vol] 259 10*3/uL Normal 150-400 [facility] Comment on above: Performed By: #### I GE #### S PATHOLOGY LABORATORY [address] [place], [place], RBC (Bld) [#/Vol] 4.47 10*6/uL Low 4.50-5.90 [facility] Comment on above: Performed By: #### I GE #### [facility] [address] [place], [place], WBC (Bld) [#/Vol] 8.0 10*3/uL Normal 4.5-11.5 [facility] Comment on above: Performed By: #### I GE #### S PATHOLOGY LABORATORY [address] [place] [address], CTA HEAD/NECK W/on CTA HEAD/NECK W/ EXAMINATION: [...] Circulation: Recanalization of the previously occluded right LEADITE HEATER with irregularity of the vessel. Intracranial vertebral arteries, PICA/AICA branches, basilar artery, SCAs and raw material handler are patent. No vessel cutoff, aneurysm or focal hemodynamically significant stenosis. Other: No evidence of a soft tissue mass or lymphadenopathy in the neck or superior mediastinum. The lung apices are clear. IMPRESSION: No acute intracranial abnormality. Enlargement of the left medial rectus muscle. Recanalization of the right LEADITE HEATER with irregularity of the vessel. No significant stenosis, dissection, or aneurysm in the intracranial or extracranial circulation. MACRO: None Normal [facility] CTA Head vessels and Neck ve ssels WO and W contrast IVOrdered By: Ming Torres on 12-02-2024 CT DLP 3838.3 (mGy.cm) [facility] Work Phone: CT Series Head,Head,Head,Head [facility] Work Phone: CTDI VOL 67.5 (mGy),9.6 (mGy),43.5 (mGy),59.2 (mGy) [facility] Work Phone: PHANTOM TYPE IEC Head Dosimetry Phantom,IEC Head Dosimetry Phantom,IEC Head Dosimetry Phantom,IEC Head Dosimetry Phantom [facility] Work Phone: [facility] Work Phone: [...] Circulation: Recanalization of the previously occluded right LEADITE HEATER with irregularity of the vessel. Intracranial vertebral arteries, PICA/AICA branches, basilar artery, SCAs and raw material handler are patent. No vessel cutoff, aneurysm or focal hemodynamically significant stenosis. Other: No evidence of a soft tissue mass or lymphadenopathy in the neck or superior mediastinum. The lung apices are clear. IMPRESSION: No acute intracranial abnormality. Enlargement of the left medial rectus muscle. Recanalization of the right LEADITE HEATER with irregularity of the vessel. No significant [...] Circulation: Recanalization of the previously occluded right LEADITE HEATER with irregularity of the vessel. Intracranial vertebral arteries, PICA/AICA branches, basilar artery, SCAs and raw material handler are patent. No vessel cutoff, aneurysm or focal hemodynamically significant stenosis. Other: No evidence of a soft tissue mass or lymphadenopathy in the neck or superior mediastinum. The lung apices are clear. IMPRESSION: No acute intracranial abnormality. Enlargement of the left medial rectus muscle. Recanalization of the right LEADITE HEATER with irregularity of the vessel. No significant stenosis, dissection, or aneurysm in the intracranial or extracranial circulation. MACRO: None [facility] Rad[facility] (narrative) [facility] Internal Audit Senior Manager Authentication Interface Message Text Attestation signed by [...] no cell, heme, or pigment DISC OD: [place], sharp, perfused, and c/d 0.3 OS: [place], sharp, perfused, and c/d 0.25 VESSELS OD: [...] -Routine f/u with optometry. 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 -Provided patient with return precautions should he have a recurrence of transient vision loss. Dhiraj Mustafa MD Ophthalmology Resident Plan discussed with senior resident on-call, Dr. Saldivar Please page [phone] with any questions or concerns. Commonly used [...] angle/disc/elsewh (more content not included)... Normal [facility] ED Provider Noteson 12-03-19 Internal Audit Senior Manager Authentication Interface Message Text ED RESIDENT CONTINUATION [...] physica (more content not included)... Normal [facility] Internal Audit Senior Manager Authentication Interface Message Text Attestation signed by [...] room at the time of the evaluation. Groover And Striper Operator: not needed - patient preferred language is Malagasy. The history is provided by the Patient. [...] Mylene 12-02-2024 ESR (Bld) [Velocity] 18 mm/h [facility] Interpretation and review of laboratory results Normal [facility] ESR (Bld) [Velocity] 18 mm/h Normal <=20 [facility] Comment on above: Performed By: #### H STRP #### [facility] [address] [place] [address], [id number] GLUCOSE, FINGERSTICK-IN OFFI CEon 12-02-2024 Glucose [Mass/Vol] 104 mg/dL 74 - 109 mg/dL [facility]ation and review of laboratory results Normal [facility] Glucose [Mass/Vol] 104 mg/dL Normal 74-109 [facility] Comment on above: Performed By: #### 8 [id number] #### NURSING GLUCOSE PROGRAM [address] [place], [address] HIGH SENSITIVITY TROPONIN Io n 12-02-2024 Troponin I.cardiac DL <= 0.01 ng/mL [Mass/Vol] 11 ng/L [facility] - 15 ng/L [facility] HS TROPONIN I 11 ng/L Normal <=15 The [facility] Comment on above: Order Comment: Pyatt ignacio troponin can result from acute myocardial [...] #### H STRP #### [facility] [address] [place] [address], [phone] Troponin I.cardiac DL <= 0.0 1 ng/mL [Mass/Vol]on 12-02-2024 Interpretation and review of laboratory results Normal [facility] Elevated troponin ca n result [...] within the clinical context using provider judgement. [facility] XR CHEST PA+LAT 2 VIEWSon XR [...] agree with the resident's interpretation. Normal [facility] XR Chest PA and Lateralon EXAMINATION: [...] images and agree with the resident's interpretation. [facility] Radiology Study observation (narrative) [facility] XR Chest PA and LateralOrder ed By: Michael Mcdonald on 12-02-2024 [facility] Work Phone: Telephone Encounteron 2024 Internal Audit Senior Manager Authentication Interface Message Text COPD Care Coordination note: Subjective: I am doing ok Objective: Future Appointments (next 10) Provider Department Center 01/08/2025 10:20 AM (Arrive by 10:10 AM) Veronica Butt, CORNCOB PIPES ASSEMBLER-PRODUCTION MACHINE SHOP SUPERVISOR [facility] Pulmonary Main [place] 01/18/2025 9:40 AM Anna Sanders PA-C [facility] Healt Called patient who reports: Patient reports [...] prescribed Attend all recommended appointments Brooke Wu Freight Receiver [phone] Option 3 Normal The [facility] Progress Noteson 11-17-2024 Internal Audit Senior Manager Authentication Interface Message Text History provided by: [...] cerebra (more content not included)... Normal [facility] Internal Audit Senior Manager Authentication Interface Message Text Identification was verified by patient verbalizing his name and date of . Normal [facility] Telephone Encounteron 2024 Internal Audit Senior Manager Authentication Interface Message Text Vijay, The patient has been referred to the pulmonary rehab program. The pulmonary referral that was placed does not have the measurements from the PFT included within it. On the referral it states Patient's Reference Values: No results found for: [id number]. In order to assess whether or not the patient qualifies, we will need these values filled in on the referral. Please consider ordering PFTs for the patient so that the updated values can be included in the referral. Based on the current referral, the patient will not be added to the workqueue at this time. Thank you. Normal [facility] BASIC METABOLIC PANELon - Anion gap [Moles/Vol] 13 mmol/L Normal 10-20 [facility] Comment on above: Performed By: #### C H8, MG ####S PATHOLOGY [id number] [place], [place], Calcium [Mass/Vol] 8.9 mg/dL Normal 8.6-10.3 [facility] Comment on above: Performed By: #### C H8, MG ####S PATHOLOGY [id number] [place], [place], Chloride [Moles/Vol] 101 mmol/L Normal 98-107 [facility] Comment on above: Performed By: #### C H8, MG ####S PATHOLOGY [id number] [place], CO2 [Moles/Vol] 26 mmol/L Normal 21-31 [facility] Comment on above: Performed By: #### C H8, MG ####[facility] PATHOLOG[facility] [id number] [place], [place], Creatinine [Mass/Vol] 1.03 mg/dL Normal 0.70-1.30 [facility] Comment on above: Performed By: #### C H8, MG ####S PATHOLOGY [id number] [place], [place], ESTIMATED GFR (CKD-EPI) 81 mL/min/1.73sqm Normal >=60 [facility] Comment on above: Result Comment: 2020 [...] Inclusion of Race in Diagnosing Kidney Disease. [place] Journal of Kidney Diseases 2021;79(2):268-88.e1. 2. N Engl J Med 1 Vol. 385 Issue 19 Pages 3405-1654 Performed By: #### Cosmo H8, MG ####[facility] PATHOLOGY [id number] [place], [place], Glucose [Mass/Vol] 104 mg/dL Normal 74-109 [facility] Comment on above: Performed By: #### Cosmo H8, MG ####[facility] PATHOLOGY [id number] [place], [place], Potassium [Moles/Vol] 4.0 mmol/L Normal 3.5-5.0 [facility] Comment on above: Performed By: #### Cosmo H8, MG ####[facility] PATHOLOGY [id number] [place], Sodium [Moles/Vol] 136 mmol/L Normal 136-145 [facility] Comment on above: Performed By: #### Cosmo H8, MG ####[facility] PATHOLOGY [id number] [place], [place], Urea nitrogen [Mass/Vol] 29 mg/dL High 7-25 [facility] Comment on above: Performed By: #### Cosmo H8, MG ####[facility] PATHOLOGY [id number] [place], [place], Basic metabolic 2000 panelon 10-26-2024 Anion [...] Inclusion of Race in Diagnosing Kidney Disease. [place] Journal of Kidney Diseases 2021;79(2):268-88.e1. 2. N Engl J Med 2020 Vol. 385 Issue 19 Pages [phone] Glucose [Mass/Vol] 104 mg/dL 74 - 109 [...] (Bld) [#/Vol] 0.07 10*3/uL Normal 0.00-0.20 [facility] Comment on above: Performed By: #### H STRP #### S PATHOLOGY LABORATORY [address] [place] [address], Basophils/100 WBC (Bld) 0.4 % Normal <=1.9 [facility] Comment on above: Performed By: #### H STRP #### S PATHOLOGY LABORATORY [address] [place] [address], Eosinophils (Bld) [#/Vol] 0.01 10*3/uL Normal 0.00-0.70 [facility] Comment on above: Performed By: #### H STRP #### S PATHOLOGY LABORATORY [address] [place], [place], Eosinophils/100 WBC (Bld) 0.0 % Low 0.1-4.0 [facility] Comment on above: Performed By: #### H STRP #### S PATHOLOGY LABORATORY [address] [place], Erythrocyte distribution width (RBC) [Ratio] 15.6 % High 11.5-14.5 [facility] Comment on above: Performed By: #### H STRP #### S PATHOLOGY LABORATORY [address] [place], Hematocrit (Bld) [Volume fraction] 37.4 % Low 41.0-53.0 [facility] Comment on above: Performed By: #### H STRP #### [facility] [address] [place], Hemoglobin (Bld) [Mass/Vol] 12.4 g/dL Low 13.9-16.3 [facility] Comment on above: Performed By: #### H STRP #### [facility] [address] [place], Lymphocytes (Bld) [#/Vol] 2.30 10*3/uL Normal 1.00-4.80 [facility] Comment on above: Performed By: #### H STRP #### [facility] [address] [place], Lymphocytes/100 WBC (Bld) 12.9 % Low 24.0-44.0 [facility] Comment on above: Performed By: #### H STRP #### [facility] [address] [place], MCH (RBC) [Entitic mass] 29.1 pg Normal 26.0-34.0 [facility] Comment on above: Performed By: #### H STRP #### S PATHOLOGY LABORATORY [address] [place], MCHC (RBC) [Mass/Vol] 33.2 g/dL Normal 32.0-35.9 [facility] Comment on above: Performed By: #### H STRP #### S PATHOLOGY LABORATORY [address] [place], MCV (RBC) [Entitic vol] 88 fL Normal 80-100 [facility] Comment on above: Performed By: #### H STRP #### S PATHOLOGY LABORATORY [address] [place], Monocytes (Bld) [#/Vol] 1.39 10*3/uL High 0.20-1.00 [facility] Comment on above: Performed By: #### H STRP #### [facility] [address] [place], Monocytes/100 WBC (Bld) 7.8 % Normal 2.0-11.0 [facility] Comment on above: Performed By: #### H STRP #### [facility] [address] [place], Neutrophils (Bld) [#/Vol] 13.98 10*3/uL High 1.50-8.00 [facility] Comment on above: Performed By: #### H STRP #### [facility] [address] [place], Neutrophils/100 WBC (Bld) 78.8 % High 31.0-76.0 [facility] Comment on above: Performed By: #### H STRP #### [facility] [address] [place], Platelet mean volume (Bld) [Entitic vol] 7.4 fL Low 7.5-11.2 [facility] Comment on above: Performed By: #### H STRP #### [facility] [address] [place], Platelets (Bld) [#/Vol] 306 10*3/uL Normal 150-400 [facility] Comment on above: Performed By: #### H STRP #### S PATHOLOGY LABORATORY [address] [place], RBC (Bld) [#/Vol] 4.27 10*6/uL Low 4.50-5.90 [facility] Comment on above: Performed By: #### H STRP #### [facility] [address] [place], WBC (Bld) [#/Vol] 17.7 10*3/uL High 4.5-11.5 [facility] Comment on above: Performed By: #### H STRP #### [facility] [address] [place], [place], Care Plan Noteon 10-26-2024 Internal Audit Senior Manager Authentication Interface Message Text EXERCISE OXIMETRY: = [...] was 94%. Aura Wagner MD Normal [facility] MAGNESIUMon 10-26-2024 Interpretation and review of laboratory results Normal [facility] Magnesium [Mass/Vol] 2.3 mg/dL 1.9 - 2 .7 mg/dL [facility] Magnesium [Mass/Vol] 2.3 mg/dL Normal 1.9-2.7 [facility] Comment on above: Performed By: #### C H8, MG ####[facility] PATHOLOG[facility] [id number] [place], [place], No Panel Informationon 10-26 [facility] Progress Noteson 10-26-2024 Internal Audit Senior Manager Authentication Interface Message Text A walking pulse [...] bedside for transport at discharge, please call [employer] at [phone] (Available 08/02). Pt has been cleared to dc home with recs for OP Pulm Rehab. SW will follow for appropriate dc planning. EDITH NorrisA, MAINTENANCE DIRECTOR Inpatient Trouble Shooter Normal [facility] Internal Audit Senior Manager Authentication Interface Message Text Stepdown Unit ATTENDING NOTE AURA WAGNER MD - PIN [phone] I saw and evaluated the patient. I [...] MD Pulmonary, Critical Care and Sleep Medicine [facility] Normal [facility] Internal Audit Senior Manager Authentication Interface Message Text [facility] Step Down Unit - H AND P Elis Bills Age [age] year old male ROOM: [place] [address] Admitted 10/24/2024 7:57 PM Hospital Day: 2 HPI Elis Bills is a 64 year old male admitted on 10/24 with a PMH of severe persistent asthma (FEV1 64% FEV1/FVC 70%) , tobacco abuse, alcohol abuse (30 beers/week) TIA (P2 occlusion 2018, on plavix), GERD, HLD, lumbar laminectomy (07/2024) presenting with shortness of breath. Started in buddhist on Wednesday, took temp and was 102. [...] 3.92 FEF50/FIF50 0.41 90-100 FIVC (L) 2.62 NCY35-66 (L/sec) 0.90 1.20 2.56 4.44 35 Time [...] trapping, normal TLC. Normal FEV1/FVC but low ZCC75-11. Chest CT with multiple sub<6mm lung nodules. No mediastinal LAD. Airway wall thickening. - home: albuterol, breztri, pulmicort, singulair Dx: asthma vs COPD vs ADHF - prior echo from 201 (more content not included)... Normal [facility] BASIC METABOLIC PANELon 04-0 Anion gap [Moles/Vol] 15 mmol/L Normal 10-20 [facility] Comment on above: Performed By: #### C H8, MG #### [facility] [address] [place] [address], Calcium [Mass/Vol] 9.0 mg/dL Normal 8.6-10.3 [facility] Comment on above: Performed By: #### Cosmo H8, MG #### [facility] [address] [place] [address], Chloride [Moles/Vol] 98 mmol/L Normal 98-107 [facility] Comment on above: Performed By: #### C H8, MG #### [facility] [address] [place] [address], CO2 [Moles/Vol] 27 mmol/L Normal 21-31 [facility] Comment on above: Performed By: #### C H8, MG #### [facility] [address] [place] [address], Creatinine [Mass/Vol] 0.90 mg/dL Normal 0.70-1.30 [facility] Comment on above: Performed By: #### C H8, MG #### [facility] [address] [place] [address], ESTIMATED GFR (CKD-EPI) 95 mL/min/1.73sqm Normal >=60 [facility] Comment on above: Result Comment: 2020 [...] Inclusion of Race in Diagnosing Kidney Disease. [place] Journal of Kidney Diseases 202;79(2):268-88.e1. 2. N Engl J Med 1 Vol. 385 Issue 19 Pages [phone] Performed By: #### C H8, MG #### [facility] [address] [place] [address], Glucose [Mass/Vol] 130 mg/dL High 74-109 [facility] Comment on above: Performed By: #### Cosmo H8, MG #### [facility] [address] [place] [address], Potassium [Moles/Vol] 4.0 mmol/L Normal 3.5-5.0 [facility] Comment on above: Performed By: #### Cosmo H8, MG #### [facility] [address] [place] [address], Sodium [Moles/Vol] 136 mmol/L Normal 136-145 [facility] Comment on above: Performed By: #### Cosmo H8, MG #### [facility] [address] [place] [address], Urea nitrogen [Mass/Vol] 14 mg/dL Normal 7-25 [facility] Comment on above: Performed By: #### Cosmo H8, MG #### [facility] [address] [place] [address], Basic metabolic 2000 panelon 10-25-2024 Anion gap [...] Inclusion of Race in Diagnosing Kidney Disease. [place] Journal of Kidney Diseases 202;79(2):268-88.e1. 2. N Engl J Med 2020 Vol. 385 Issue 19 Pages [phone] Glucose [Mass/Vol] 130 mg/dL High 74 - [...] (Bld) [#/Vol] 0.18 10*3/uL Normal 0.00-0.20 [facility] Comment on above: Performed By: #### H STRP #### [facility] [address] [place] [address], Basophils/100 WBC (Bld) 1.1 % Normal <=1.9 [facility] Comment on above: Performed By: #### H STRP #### [facility] [address] [place] [address], Eosinophils (Bld) [#/Vol] 0.00 10*3/uL Normal 0.00-0.70 [facility] Comment on above: Performed By: #### H STRP #### [facility] [address] [place] [address], Eosinophils/100 WBC (Bld) 0.0 % Low 0.1-4.0 [facility] Comment on above: Performed By: #### H STRP #### [facility] [address] [place] [address], Erythrocyte distribution width (RBC) [Ratio] 15.9 % High 11.5-14.5 [facility] Comment on above: Performed By: #### H STRP #### [facility] [address] [place] [address], Hematocrit (Bld) [Volume fraction] 35.9 % Low 41.0-53.0 [facility] Comment on above: Performed By: #### H STRP #### [facility] [address] [place] [address], Hemoglobin (Bld) [Mass/Vol] 12.2 g/dL Low 13.9-16.3 [facility] Comment on above: Performed By: #### H STRP #### [facility] [address] [place] [address], Lymphocytes (Bld) [#/Vol] 0.80 10*3/uL Low 1.00-4.80 [facility] Comment on above: Performed By: #### H STRP #### [facility] [address] [place] [address], Lymphocytes/100 WBC (Bld) 5.0 % Low 24.0-44.0 [facility] Comment on above: Performed By: #### H STRP #### [facility] [address] [place] [address], MCH (RBC) [Entitic mass] 29.7 pg Normal 26.0-34.0 [facility] Comment on above: Performed By: #### H STRP #### S [facility]AT[facility] [address] [place] [address], MCHC (RBC) [Mass/Vol] 34.0 g/dL Normal 32.0-35.9 [facility] Comment on above: Performed By: #### H STRP #### [facility] [address] [place] [address], MCV (RBC) [Entitic vol] 88 fL Normal 80-100 [facility] Comment on above: Performed By: #### H STRP #### [facility] [address] [place] [address], Monocytes (Bld) [#/Vol] 0.75 10*3/uL Normal 0.20-1.00 [facility] Comment on above: Performed By: #### H STRP #### [facility] [address] [place] [address], Monocytes/100 WBC (Bld) 4.7 % Normal 2.0-11.0 [facility] Comment on above: Performed By: #### H STRP #### [facility] [address] [place] [address], Neutrophils (Bld) [#/Vol] 14.28 10*3/uL High 1.50-8.00 [facility] Comment on above: Performed By: #### H STRP #### [facility] [address] [place] [address], Neutrophils/100 WBC (Bld) 89.2 % High 31.0-76.0 [facility] Comment on above: Performed By: #### H STRP #### [facility] [address] [place] [address], Platelet mean volume (Bld) [Entitic vol] 7.5 fL Normal 7.5-11.2 [facility] Comment on above: Performed By: #### H STRP #### [facility] [address] [place] [address], Platelets (Bld) [#/Vol] 277 10*3/uL Normal 150-400 [facility] Comment on above: Performed By: #### H STRP #### [facility] [address] [place] [address], RBC (Bld) [#/Vol] 4.10 10*6/uL Low 4.50-5.90 [facility] Comment on above: Performed By: #### H STRP #### [facility] [address] [place], [place], WBC (Bld) [#/Vol] 16.0 10*3/uL High 4.5-11.5 [facility] Comment on above: Performed By: #### H STRP #### [facility] [address] [place], [place], Consultson 10-25-2024 Internal Audit Senior Manager Authentication Interface Message Text SW is aware of consult for substance use resources. Pt declines substance use issues and states he does not need resources. Rena Thorne, [facility], [facility] Inpatient Trouble Shooter Normal [facility] Diabetes tracking panelOrder ed By: Deni Clark on 10-25-2024 Average glucose Estimated from glycated hemoglobin (Bld) [Mass/Vol] 117 mg/dL [facility] HbA1c (Bld) [Mass fraction] 5.7 % High 4.0 - 5.6 % [facility] Interpretation and review of laboratory results Abnormal [facility] H AND Pepe 10-25-2024 Internal Audit Senior Manager Authentication Interface Message Text Stepdown Unit ATTENDING NOTE AURA WAGNER MD - PIN [phone] I saw and evaluated the patient. I [...] MD Pulmonary, Critical Care and Sleep Medicine [facility] Normal The [facility] System Internal Audit Senior Manager Authentication Interface Message Text [facility] Step Down Unit - H AND P Elis Bills Age [age] year old male ROOM: [place] [address] Admitted 10/24/2024 7:57 PM Hospital Day: 2 [...] breath. He started to feel SOB in buddhist on Wednesday. Went home and used pulse [...] 8.2 (more content not included)... Normal [facility] MAGNESIUMon 10-25-2024 Interpretation and review of laboratory results Normal [facility] Magnesium [Mass/Vol] 2.2 mg/dL 1.9 - 2 .7 mg/dL [facility] Magnesium [Mass/Vol] 2.2 mg/dL Normal 1.9-2.7 [facility] Comment on above: Performed By: #### C H8, MG #### [facility] [address] [place], [place] [address]Ai[place], [address] No Panel Informationon 10-25 [facility] Procedureson 10-25-2024 Internal Audit Senior Manager Authentication Interface Message Text Transthoracic Echocardiographic Report Name: SANJU GILLIS Physician: : [id number] Referring ROXIE MONTGOMERY MD Physician: Age: 64 Starting Gate Driver: Keyona Avendano RDCS Exam Date: 10/25/2024 Fellow: [...] Doctor's order(s) verified. Patient's preferred language is Malagasy . Verbal consent for left heart echo [...] 10/25/2024 11:29 AM Invalid Interpretation Code [facility] RESPIRATORY CULTURE, MISCon 10-25-2024 RESPIRATORY CULTURE, MISC MRSA: Methicillin-Resistant Staphylococcus aureus NOT detected by chromagar screen. C RESP: Isolates consistent with microorganisms encountered in the upper respiratory tract GRAM STAIN: 4+ Polymorphonuclear Leukocytes 2+ Squamous Epithelial Cells 2+ Gram Positive Cocci In Pairs Normal [facility] Comment on above: Performed By: #### C RESP ####[facility] [address] [place], [place] [facility]24 [facility] HNO ID: [id number] Author: ROSE VICTORIA RT(R) Service: Radiology Author Type: Irrigator Head Type: [facility] Filed: 10/24/2024 11:35 Note Text: Radiology [...] PATIENT PRESENTS WITH AN IMPLANTABLE OR ATTACHED AGRICULTURAL SERVICES DIRECTOR: No ALLERGIES: Reviewed and unchanged CONTRAST ALLERGY: [...] October 24, 2024 TIME: 11:35 AM Normal [facility] HNO ID: [id number] Author: DEVANG WATTS RT(R) Service: ? Author [...] PATIENT PRESENTS WITH AN IMPLANTABLE OR ATTACHED AGRICULTURAL SERVICES DIRECTOR: No RADIOLOGY DEPARTMENT: General X-ray: Exam(s) Completed: Chest X-Ray PERIPHERAL IV DATA: Not applicable SIGNED BY: RT Lance(R) October 24, 2024 10:21 AM Normal [facility] BASIC METABOLIC PANELon 04-0 Anion gap [Moles/Vol] 16 mmol/L Normal 10-20 [facility] Comment on above: Performed By: #### C H8, HEPATIC, MG #### [facility] [address] [place], [place], Calcium [Mass/Vol] 9.2 mg/dL Normal 8.6-10.3 [facility] Comment on above: Performed By: #### C H8, HEPATIC, MG #### [facility] [address] [place], [place], Chloride [Moles/Vol] 98 mmol/L Normal 98-107 The [facility] Comment on above: Performed By: #### C H8, HEPATIC, MG #### [facility] [address] [place], [place], CO2 [Moles/Vol] 25 mmol/L Normal 21-31 [facility] Comment on above: Performed By: #### C H8, HEPATIC, MG #### [facility] [address] [place], [place], Creatinine [Mass/Vol] 0.87 mg/dL Normal 0.70-1.30 [facility] Comment on above: Performed By: #### C H8, HEPATIC, MG #### [facility] [address] [place], [place], ESTIMATED GFR (CKD-EPI) 96 mL/min/1.73sqm Normal >=60 [facility] Comment on above: Result Comment: 2020 [...] Inclusion of Race in Diagnosing Kidney Disease. [place] Journal of Kidney Diseases 2021;79(2):268-88.e1. 2. N Engl J Med 2020 Vol. 385 Issue 19 Pages [phone] Performed By: #### C H8, HEPATIC, MG #### [facility] [address] [place], [place], Glucose [Mass/Vol] 140 mg/dL High 74-109 [facility] Comment on above: Performed By: #### C H8, HEPATIC, MG #### [facility] [address] [place] [address], Potassium [Moles/Vol] 4.5 mmol/L Normal 3.5-5.0 [facility] Comment on above: Performed By: #### Cosmo H8, HEPATIC, MG #### [facility] [address] [place], [place], Sodium [Moles/Vol] 134 mmol/L Low 136-145 [facility] Comment on above: Performed By: #### Cosmo H8, HEPATIC, MG #### [facility] [address] [place] [address], Urea nitrogen [Mass/Vol] 13 mg/dL Normal 7-25 [facility] Comment on above: Performed By: #### Cosmo H8, HEPATIC, MG #### [facility] [address] [place] [address], BLOOD GAS, ARTERIALOrdered B y: Shanekaron Finn [...] H STRP #### [facility] [address] [place], [place], CR PCO2 41.3 mm Hg Normal 35.0-45.0 [facility] Comment on above: Performed By: #### H STRP #### [facility] [address] [place] [address], CR PHA 7.393 Normal 7.350-7.450 [facility] Comment on above: Performed By: #### H STRP #### S [facility] [address] [place] [address], CR PO2 107 mm Hg High 80-100 [facility] Comment on above: Performed By: #### H STRP #### [facility] [address] [place] [address], FIO2 (CATEGORY) 4 LPM Normal [facility] Comment on above: Performed By: #### H STRP #### S [facility] [address] [place] [address], HCO3 (Bld) [Moles/Vol] 25 mmol/L Normal 21-28 [facility] Comment on above: Performed By: #### H STRP #### [facility] [address] [place] [address], MODE Nasal Canula Normal [facility] Comment on above: Performed By: #### H STRP #### [facility] [address] [place] [address], Oxygen saturation in Blood 98.0 % Normal 95.0-99.0 [facility] Comment on above: Performed By: #### H STRP #### [facility] [address] [place] [address], Bacteria Bld Culton 10-25-19 25 Bacteria identified Cx Nom (Bld) CULTURE, BLOOD: No growth 5 days Normal [facility] Comment on above: Performed By: #### 6 00-7 #### [facility] CLIA [id number] [address] STATES OF [facility] Bacteria Spec Resp Culton Bacteria identified Respiratory culture Nom (Unsp spec) CULTURE, RESPIRATORY: Few Normal respiratory mark present GRAM STAIN: Few Mixed oral mark Moderate Polymorphonuclear leukocytes Rare Epithelial cells Abnormal [facility] Comment on above: Performed By: #### 3 2355-0 #### [facility] CLIA [id number] [address] [place] [address] [place] Basic metabolic 2000 [...] Inclusion of Race in Diagnosing Kidney Disease. [place] Journal of Kidney Diseases 202;79(2):268-88.e1. 2. N Engl J Med 2020 Vol. 385 Issue 19 Pages 6761-1952 Glucose [Mass/Vol] 140 mg/dL High 74 - 109 mg/dL [facility] Interpretation and review of laboratory results Abnormal [facility] Potassium [Moles/Vol] 4.5 mmol/L 3.5 - 5.0 mmol/L [facility] Sodium [Moles/Vol] 134 mmol/L Low 136 - 145 mmol/L [facility] Urea nitrogen [Mass/Vol] 13 mg/dL 7 - 25 mg/dL [facility] CBC W Auto Differential pane l (Bld)on 10-24-2024 Basophils (Bld) [#/Vol] 10*3/uL Normal <0.11 [facility] Comment on above: Order Comment: Speci men Type: BLOOD SPECIMENOrdering Facility: [facility] Address: [address], [place] [address] Performed By: #### 3 2355-0 #### [facility] CLIA [id number] [address] [place] Basophils/100 WBC (Bld) 0.1 % Normal [facility] Comment on above: Order Comment: Speci men Type: BLOOD SPECIMENOrdering Facility: [facility] Address: [facility] [place] [address] Performed By: #### 3 2355-0 #### [facility] CLIA [id number] [address] [place] Differential cell count method Nom (Bld) Auto Normal [facility] Comment on above: Order Comment: Speci men Type: BLOOD SPECIMENOrdering Facility: [facility] Address: [address] [place] [address] Performed By: #### 3 2355-0 #### [facility] CLIA [id number] [address] [place] Eosinophils (Bld) [#/Vol] 10*3/uL Normal <0.46 [facility] Comment on above: Order Comment: Speci men Type: BLOOD SPECIMENOrdering Facility: [facility] Address: [address] [place] [address] Performed By: #### 3 2355-0 #### [facility] CLIA [id number] [address] [place] Eosinophils/100 WBC (Bld) 0.0 % Normal [facility] Comment on above: Order Comment: Speci men Type: BLOOD SPECIMENOrdering Facility: [facility] Address: [address] [place] [address] Performed By: #### 3 2355-0 #### [facility] CLIA [id number] [address] [place] Erythrocyte distribution width (RBC) [Ratio] 15.6 % High 11.5-15.0 [facility] Comment on above: Order Comment: Speci men Type: BLOOD SPECIMENOrdering Facility: [facility] Address: [address] [place] [address] Performed By: #### 3 2355-0 #### [facility] CLIA [id number] [address] [place] Hematocrit (Bld) [Volume fraction] 38.9 % Low 39.0-51.0 [facility] Comment on above: Order Comment: Speci men Type: BLOOD SPECIMENOrdering Facility: [facility] Address: [address] [place] [address] Performed By: #### 3 2355-0 #### [facility] CLIA [id number] [address] [place] Hemoglobin (Bld) [Mass/Vol] 12.9 g/dL Low 13.0-17.0 [facility] Comment on above: Order Comment: Speci men Type: BLOOD SPECIMENOrdering Facility: [facility] Address: [address] [place] [address] Performed By: #### 3 2355-0 #### [facility] CLIA [id number] [address] [place] Immature granulocytes (Bld) [#/Vol] 0.03 10*3/uL Normal <0.10 [facility] Comment on above: Order Comment: Speci men Type: BLOOD SPECIMENOrdering Facility: [facility] Address: [address] [place] [address] Performed By: #### 3 2355-0 #### [facility] CLIA [id number] [address] [place] Immature granulocytes/100 WBC (Bld) 0.2 % Normal [facility] Comment on above: Order Comment: Speci men Type: BLOOD SPECIMENOrdering Facility: [facility] Address: [address] [place] [address] Performed By: #### 3 2355-0 #### [facility] CLIA [id number] [address] [place] Lymphocytes (Bld) [#/Vol] 1.08 10*3/uL Normal 1.00-4.00 [facility] Comment on above: Order Comment: Speci men Type: BLOOD SPECIMENOrdering Facility: [facility] Address: [address] [place] [address] Performed By: #### 3 2355-0 #### [facility] CLIA [id number] [address] Lymphocytes/100 WBC (Bld) 5.8 % Normal [facility] Comment on above: Order Comment: Speci men Type: BLOOD SPECIMENOrdering Facility: [facility] Address: [address] [place] [address] Performed By: #### 3 2355-0 #### [facility] CLIA [id number] [address] MCH (RBC) [Entitic mass] 29.1 pg Normal 26.0-34.0 [facility] Comment on above: Order Comment: Speci men Type: BLOOD SPECIMENOrdering Facility: [facility] Address: [address] [place] [address] Performed By: #### 3 2355-0 #### [facility] CLIA [id number] [address] STATES OF [facility] MCHC (RBC) [Mass/Vol] 33.2 g/dL Normal 30.5-36.0 [facility] Comment on above: Order Comment: Speci men Type: BLOOD SPECIMENOrdering Facility: [facility] Address: [address] [place] [address] Performed By: #### 3 2355-0 #### [facility] CLIA [id number] [address] [place] MCV (RBC) [Entitic vol] 87.8 fL Normal 80.0-100.0 [facility] Comment on above: Order Comment: Speci men Type: BLOOD SPECIMENOrdering Facility: [facility] Address: [address] [place] [address] Performed By: #### 3 2355-0 #### [facility] CLIA [id number] [address] [place] [address] [place] Monocytes (Bld) [#/Vol] 1.62 10*3/uL High <0.87 [facility] Comment on above: Order Comment: Speci men Type: BLOOD SPECIMENOrdering Facility: [facility] Address: [address] [place] [address] Performed By: #### 3 2355-0 #### [facility] CLIA [id number] [address] [place] Monocytes/100 WBC (Bld) 8.8 % Normal [facility] Comment on above: Order Comment: Speci men Type: BLOOD SPECIMENOrdering Facility: [facility] Address: [address] [place] [address] Performed By: #### 3 2355-0 #### [facility] CLIA [id number] 1 [place] [address] [place] Neutrophils (Bld) [#/Vol] 15.73 10*3/uL High 1.45-7.50 [facility] Comment on above: Order Comment: Speci men Type: BLOOD SPECIMENOrdering Facility: [facility] Address: [address] [place] [address] Performed By: #### 3 5-0 #### [facility] CLIA [id number] [address] [place] Neutrophils/100 WBC (Bld) 85.1 % Normal [facility] Comment on above: Order Comment: Speci men Type: BLOOD SPECIMENOrdering Facility: [facility] Address: [address] [place] [address] Performed By: #### 3 2355-0 #### [facility] CLIA [id number] 1 [place] [address] [place] Nucleated RBC (Bld) [#/Vol] Normal [facility] Comment on above: Order Comment: Speci men Type: BLOOD SPECIMENOrdering Facility: [facility] Address: [address] [place] [address] Performed By: #### 3 2355-0 #### [facility] CLIA [id number] [address] [place] Nucleated RBC/100 WBC (Bld) [Ratio] Normal [facility] Comment on above: Order Comment: Speci men Type: BLOOD SPECIMENOrdering Facility: [facility] Address: [address] [place] [address] Performed By: #### 3 2355-0 #### [facility] CLIA [id number] [address] [place] Platelet mean volume (Bld) [Entitic vol] 9.2 fL Normal 9.0-12.7 [facility] Comment on above: Order Comment: Speci men Type: BLOOD SPECIMENOrdering Facility: [facility] Address: [address] [place] [address] Performed By: #### 3 2355-0 #### [facility] CLIA [id number] [address] [place] Platelets (Bld) [#/Vol] 276 10*3/uL Normal 150-400 [facility] Comment on above: Order Comment: Speci men Type: BLOOD SPECIMENOrdering Facility: [facility] Address: [address] [place] [address] Performed By: #### 3 2355-0 #### [facility] CLIA [id number] [address] [place] RBC (Bld) [#/Vol] 4.43 10*6/uL Normal 4.20-6.00 [facility] Comment on above: Order Comment: Speci men Type: BLOOD SPECIMENOrdering Facility: [facility] Address: [address] [place] [address] Performed By: #### 3 2355-0 #### [facility] CLIA [id number] [address] [place] WBC (Bld) [#/Vol] 18.48 10*3/uL High 3.70-11.00 [facility] Comment on above: Order Comment: Speci men Type: BLOOD SPECIMENOrdering Facility: [facility] Address: [address] [place] [address] Performed By: #### 3 2355-0 #### [facility] CLIA [id number] 1 [place] [address] [place] [facility] CBC WITH DIFFERENTIALon Basophils (Bld) [#/Vol] 0.05 [...] RBC (Bld) [#/Vol] 4.18 10*6/uL Low [facility] WBC (Bld) [#/Vol] 16.7 10*3/uL High 4.5 - 11.5 K/uL [facility] Basophils (Bld) [#/Vol] 0.05 10*3/uL Normal 0.00-0.20 [facility] Comment on above: Performed By: #### H STRP #### [facility] [address] [place] [address], Basophils/100 WBC (Bld) 0.3 % Normal <=1.9 [facility] Comment on above: Performed By: #### H STRP #### [facility] [address] [place] [address], Eosinophils (Bld) [#/Vol] 0.00 10*3/uL Normal 0.00-0.70 [facility] Comment on above: Performed By: #### H STRP #### [facility] [address] [place] [address], Eosinophils/100 WBC (Bld) 0.0 % Low 0.1-4.0 [facility] Comment on above: Performed By: #### H STRP #### [facility] [address] [place] [address], Erythrocyte distribution width (RBC) [Ratio] 15.8 % High 11.5-14.5 [facility] Comment on above: Performed By: #### H STRP #### S [facility] LAB[facility] [address] [place] [address], Hematocrit (Bld) [Volume fraction] 36.3 % Low 41.0-53.0 [facility] Comment on above: Performed By: #### H STRP #### S [facility] [address] [place] [address], Hemoglobin (Bld) [Mass/Vol] 12.3 g/dL Low 13.9-16.3 [facility] Comment on above: Performed By: #### H STRP #### [facility] [address] [place], [place], Lymphocytes (Bld) [#/Vol] 0.57 10*3/uL Low 1.00-4.80 [facility] Comment on above: Performed By: #### H STRP #### [facility] [address] [place], Lymphocytes/100 WBC (Bld) 3.4 % Low 24.0-44.0 [facility] Comment on above: Performed By: #### H STRP #### [facility] [address] [place], MCH (RBC) [Entitic mass] 29.4 pg Normal 26.0-34.0 [facility] Comment on above: Performed By: #### H STRP #### [facility] [address] [place], MCHC (RBC) [Mass/Vol] 33.8 g/dL Normal 32.0-35.9 [facility] Comment on above: Performed By: #### H STRP #### [facility] [address] [place], MCV (RBC) [Entitic vol] 87 fL Normal 80-100 [facility] Comment on above: Performed By: #### H STRP #### [facility] [address] [place], Monocytes (Bld) [#/Vol] 0.49 10*3/uL Normal 0.20-1.00 [facility] Comment on above: Performed By: #### H STRP #### [facility] [address] [place], Monocytes/100 WBC (Bld) 2.9 % Normal 2.0-11.0 [facility] Comment on above: Performed By: #### H STRP #### [facility] [address] [place], Neutrophils (Bld) [#/Vol] 15.64 10*3/uL High 1.50-8.00 [facility] Comment on above: Performed By: #### H STRP #### S [facility] [address] [place], Neutrophils/100 WBC (Bld) 93.4 % High 31.0-76.0 [facility] Comment on above: Performed By: #### H STRP #### S [facility] [address] [place], [place], Platelet mean volume (Bld) [Entitic vol] 7.5 fL Normal 7.5-11.2 [facility] Comment on above: Performed By: #### H STRP #### [facility] [address] [place], [place], Platelets (Bld) [#/Vol] 266 10*3/uL Normal 150-400 [facility] Comment on above: Performed By: #### H STRP #### [facility] [address] [place] [address], RBC (Bld) [#/Vol] 4.18 10*6/uL Low 4.50-5.90 [facility] Comment on above: Performed By: #### H STRP #### [facility] [address] [place], [place], WBC (Bld) [#/Vol] 16.7 10*3/uL High 4.5-11.5 [facility] Comment on above: Performed By: #### H STRP #### [facility] [address] [place], [place], CTA CHEST (NON GATED) W IVCO N PEon 10-24-2024 CTA CHEST (NON GATED) W IVCON PE * * *Final Report* * * DATE OF EXAM: Oct 24 2024 11:36AM [facility] 0564 - CTA CHEST (NON GATED) [...] Mediastinal and bilateral hilar adenopathy, new finding Vp Legal Affairs: YAIR Transcribe Date/Time: Oct 24 2024 11:51A Dictated by : AFTAB MARTINEZ MD This examination was interpreted and the report reviewed and electronically signed by: AFTAB MARTINEZ MD on Oct 24 2024 11:56AM EST [id number] N Normal [facility] Comprehensive metabolic 2000 panelon 10-24-2024 Albumin [Mass/Vol] 4.1 g/dL Normal 3.9-4.9 [facility] Comment on above: Order Comment: Speci men Type: BLOOD SPECIMENOrdering Facility: [facility] Address: [address] [place] [address] Performed By: #### 2 4323-8, 80996-5, 58065-4 ####[facility] LABCLIA [id number] [place] [address] [place] ALP [Catalytic activity/Vol] 115 U/L High 38-113 [facility] Comment on above: Order Comment: Speci men Type: BLOOD SPECIMENOrdering Facility: [facility] Address: [address] [place] [address] Performed By: #### 2 4323-8, 73485-8, 31070-8 ####[facility] LABCLIA [id number] [place] [address] [place] ALT With P-5'-P [Catalytic activity/Vol] 19 U/L Normal 10-54 [facility] Comment on above: Order Comment: Speci men Type: BLOOD SPECIMENOrdering Facility: [facility] Address: [address] [place] [address] Performed By: #### 2 4323-8, 07156-1, 93172-0 ####[facility] LABCLIA [id number] [facility] [place] [address] [place] Anion gap [Moles/Vol] 14 mmol/L Normal 8-15 [facility] Comment on above: Order Comment: Speci men Type: BLOOD SPECIMENOrdering Facility: [facility] Address: [address] [place] [address] Performed By: #### 2 4323-8, 62008-2, 23013-2 ####[facility] LABCLIA [id number] [place] [address] [place] AST With P-5'-P [Catalytic activity/Vol] 16 U/L Normal 14-40 [facility] Comment on above: Order Comment: Speci men Type: BLOOD SPECIMENOrdering Facility: [facility] Address: [address] [place] [address] Performed By: #### 2 4323-8, 44883-1, 18932-5 ####[facility] LABCLIA [id number] [place] [address] [place] Bilirubin [Mass/Vol] 0.8 mg/dL Normal 0.2-1.3 [facility] Comment on above: Order Comment: Speci men Type: BLOOD SPECIMENOrdering Facility: [facility] Address: [address] [place] [address] Performed By: #### 2 4323-8, 89164-1, 37164-9 ####[facility] LABCLIA [id number] [place] [address] [place] Calcium [Mass/Vol] 9.5 mg/dL Normal 8.5-10.2 [facility] Comment on above: Order Comment: Speci men Type: BLOOD SPECIMENOrdering Facility: [facility] Address: [address] [place] [address] Performed By: #### 2 4323-8, 93618-1, 36633-0 ####[facility] LABCLIA [id number] [place] [address] [place] Chloride [Moles/Vol] 96 mmol/L Low 98-107 [facility] Comment on above: Order Comment: Speci men Type: BLOOD SPECIMENOrdering Facility: [facility] Address: [address] [place] [address] Performed By: #### 2 4323-8, 05676-9, 67961-6 ####[facility] LABCLIA [id number] [place] [address] [place] CO2 [Moles/Vol] 23 mmol/L Normal 22-30 [facility] Comment on above: Order Comment: Speci men Type: BLOOD SPECIMENOrdering Facility: [facility] Address: [address] [place] [address] Performed By: #### 2 4323-8, 99007-6, 79655-2 ####[facility] LABCLIA [id number] [place] [address] [place] Creatinine [Mass/Vol] 0.89 mg/dL Normal 0.73-1.22 [facility] Comment on above: Order Comment: Speci men Type: BLOOD SPECIMENOrdering Facility: [facility] Address: [address] [place] [address] Performed By: #### 2 4323-8, , 69242-1 ####[facility] LABCLIA [id number] [place] [address] [place] Creatinine and Glomerular filtration rate.predicted panel (S/P/Bld) 95 mL/min/1.73m??? Normal >=60 [facility] Comment on above: Order Comment: Speci [facility] Type: BLOOD SPECIMENOrdering Facility: [facility] Address: [address] [place] [address] Result Comment: Lala mated Glomerular Filtration Rate [...] actual GFR. Performed By: #### 2 4323-8, 34000-5, 90737-7 ####[facility] LABCLIA [id number] [place] [address] [place] Glucose [Mass/Vol] 117 mg/dL High 74-99 [facility] Comment on above: Order Comment: Speci men Type: BLOOD SPECIMENOrdering Facility: [facility] Address: [address] [place] [address] Result Comment: The [place] Diabetes Association (ADA) provides guidance for cutoff [...] Standards of Medical Care in Diabetes 2016, [place] [employer] Association. Diabetes Care. 2016.39(Suppl 1). Performed By: #### 2 4323-8, 39245-8, 12122-3 ####[facility] LABCLIA [id number] [place] [address] [place] Potassium [Moles/Vol] 4.1 mmol/L Normal 3.7-5.1 [facility] Comment on above: Order Comment: Speci men Type: BLOOD SPECIMENOrdering Facility: [facility] Address: [address] [place] [address] Performed By: #### 2 4323-8, 57359-3, 43326-2 ####[facility] LABCLIA [id number] [place] [address] [place] Protein [Mass/Vol] 7.5 g/dL Normal 6.3-8.0 [facility] Comment on above: Order Comment: Speci men Type: BLOOD SPECIMENOrdering Facility: [facility] Address: [address] [place] [id number] Performed By: #### 2 4323-8, 81918-8, 34377-4 ####[facility] LABCLIA [id number] [place] [address] [place] Sodium [Moles/Vol] 133 mmol/L Low 136-144 [facility] Comment on above: Order Comment: Karthikeyani men Type: BLOOD SPECIMENOrdering Facility: [facility] Address: [address] [place] [address] Performed By: #### 2 4323-8, 33507-4, 91425-8 ####[facility] LABCLIA [id number] [place] [address] [place] [facility] Urea nitrogen [Mass/Vol] 13 mg/dL Normal 9-24 [facility] Comment on above: Order Comment: Speci men Type: BLOOD SPECIMENOrdering Facility: [facility] Address: [address] [place] [address] Performed By: #### 2 4323-8, 94807-3, 17050-1 ####[facility] LABCLIA [id number] [place] [address] [facility] ECG COMPLETEon 10-24-2024 ECG COMPLETE Ventricular Rate : 9 3 BPM Atrial Rate : 93 BPM P-R Interval : 134 ms QRS Duration : 122 ms Q-T Interval : 388 ms QTC Calculation(Bazett) : 482 ms Calculated P [place] : 45 degrees Calculated R [place] : 71 degrees Calculated T [place] : 26 degrees SINUS RHYTHM WITH OCCASIONAL PREMATURE VENTRICULAR COMPLEXES RIGHT BUNDLE BRANCH BLOCK ABNORMAL ECG WHEN COMPARED WITH ECG OF 14-Jul-2024 13:13, PREMATURE VENTRICULAR COMPLEXES ARE NOW PRESENT Confirmed by MD SUAREZ VINAYAK ([id number]) on 10/25/2024 2:19:53 PM NAME : ELIS BILLS PID : [id number] : 1960 Gender : Male Race : ORD : [id number] Procedure Date : Oct 24 2024 09:16:43 Edit Date : Oct 25 2024 14:19:54 Diagnosis: SINUS RHYTHM WITH OCCASIONAL PREMATURE VENTRICULAR COMPLEXES RIGHT BUNDLE BRANCH BLOCK ABNORMAL ECG WHEN COMPARED WITH ECG OF 14-Jul-2024 13:13, PREMATURE VENTRICULAR COMPLEXES ARE NOW PRESENT Confirmed by MD SUAREZ VINAYAK ([id number]) on 10/25/2024 2:19:53 PM Test Reason : Chest Pain Location : 191 : [facility] ED Overread By : MD SUAREZ VINAYAK Edited By : MD SUAREZ VINAYAK Referred By : , Acquired by : DAREN RUCKER [facility] ED NOTEon 10-24-2024 ED NOTE HNO ID: [id number] Author: TINCHER, JORGE, RN Service: Nursing Author Type: Registered Nurse Type: ED Notes Filed: 10/24/2024 18:22 Note Text: Patient leaves ED with [facility] ED NOTE HNO ID: [id number] Author: JORGE JONES RN Service: Nursing Author Type: Registered Nurse Type: ED Notes Filed: 10/24/2024 18:15 Note Text: at bedside with patient and EMS. [facility] ED NOTE HNO ID: [id number] Author: JORGE JONES RN Service: Nursing Author Type: Registered Nurse Type: ED Notes Filed: 10/24/2024 18:14 Note Text: [facility] remains in room with patient on their monitor. They are transferring patient to EMS BiPAP. [facility] ED NOTE HNO ID: [id number] Author: JORGE JONES RN Service: Nursing Author Type: Registered Nurse Type: ED Notes Filed: 10/24/2024 16:52 Note Text: [facility] ETA 45-60 minutes [facility] ED NOTE HNO ID: [id number] Author: YOVANY JULIEN RN Service: ? Author Type: Registered Nurse Type: ED Notes Filed: 10/24/2024 16:51 Note Text: Bed assignment [address] bed 412 Report [phone] [facility] ED NOTE HNO ID: [id number] Author: JORGE JONES RN Service: Nursing Author Type: Registered Nurse Type: ED Notes Filed: 10/24/2024 16:20 Note Text: Patient removed from bi pap for a demanded break. Nasal canula at 6L applied. aware. Respiratory therapy remains at bedside during the break from BiPap. [facility] ED NOTE HNO ID: [id number] Author: JORGE JONES RN Service: Nursing Author Type: Registered Nurse Type: ED Notes Filed: 10/24/2024 14:19 Note Text: BiPAP removed per patient demands. Nasal Canula reapplied. [facility] ED NOTE HNO ID: [id number] Author: JORGE JONES RN Service: Nursing Author Type: Registered Nurse Type: ED Notes Filed: 10/24/2024 13:50 Note Text: Patient has asked twice to have BiPap removed. This RN discussed patients request with and Respiratory therapy. They will discuss with patient as well as this RN. [facility] ED NOTE HNO ID: [id number] Author: JORGE JONES, RN Service: Nursing Author Type: Registered Nurse Type: ED Notes Filed: 10/24/2024 13:35 Note Text: accepts patient at [facility]. Will call back with bed assignment. [facility] ED NOTE HNO ID: [id number] Author: JORGE JONES, RN Service: Nursing Author Type: Registered Nurse Type: ED Notes Filed: 10/24/2024 09:29 Note Text: Don presents with complaints of SOB. Wednesday he started to feel SOB during buddhist with activity. He developed a fever (102f) [...] spouse has had ear pain and congestion. [facility] ED NOTE HNO ID: [id number] Author: JORGE JONES RN Service: Nursing Author Type: Registered Nurse Type: ED Notes Filed: 10/24/2024 18:09 Note Text: EMS AT BEDSIDE [facility] ED PROV NOTEon 10-24-2024 ED PROV NOTE HNO ID: [id number] Author: BRIAN ANGLIN MD Service: Emergency Medicine [...] symptoms. Pat (more content not included)... Normal [facility] HEMOGLOBIN A1Con 10-24-2024 Glucose [Mass/Vol] 117 mg/dL Normal [facility] Comment on above: Performed By: #### H STRP #### [facility] [address] [place] [address], [address] HbA1c (Bld) [Mass fraction] 5.7 % High 4.0-5.6 [facility] Comment on above: Performed By: #### H STRP #### [facility] [address] [place] [address], HEPATIC FUNCTION PANELon Albumin [Mass/Vol] 4.2 g/dL [...] Albumin [Mass/Vol] 4.2 g/dL Normal 3.5-5.7 [facility] Comment on above: Performed By: #### Cosmo Roa, HEPATIC, MG #### S [facility] [address] [place] [address], ALK 94 IU/L Normal 34-104 [facility] Comment on above: Performed By: #### Cosmo Dunbar8, HEPATIC, MG #### [facility] [address] [place] [address], ALT [Catalytic activity/Vol] 19 U/L Normal 7-52 [facility] Comment on above: Performed By: #### Cosmo HRosi, HEPATIC, MG #### [facility] [address] [place] [address], AST [Catalytic activity/Vol] 16 U/L Normal 13-39 [facility] Comment on above: Performed By: #### Cosmo H8, HEPATIC, MG #### [facility] [address] [place] [address], Bilirubin [Mass/Vol] 0.6 mg/dL Normal 0.3-1.0 [facility] Comment on above: Performed By: #### Cosmo H8, HEPATIC, MG #### [facility] [address] [place] [address], Bilirubin.direct [Mass/Vol] 0.14 mg/dL Normal 0.03-0.18 [facility] Comment on above: Performed By: #### Cosmo H8, HEPATIC, MG #### [facility] [address] [place], [place], Protein [Mass/Vol] 7.1 g/dL Normal 6.0-8.3 [facility] Comment on above: Performed By: #### Cosmo H8, HEPATIC, MG #### [facility] [address] [place], [place], HIGH SENSITIVITY TROPONIN T (INITIAL)on 10-24-2024 Troponin T.cardiac High sensitivity method [Mass/Vol] 51 ng/L High <12 [facility] Comment on above: Order Comment: Speci men Type: BLOOD SPECIMENOrdering Facility: [facility] Address: [address] [place] [address] Performed By: #### L [id number] ####[facility] LABCLIA [id number] [address] HIGH SENSITIVITY TROPONIN T (SECOND)on 10-24-2024 Troponin T.cardiac High sensitivity method [Mass/Vol] 47 ng/L High <12 [facility] Comment on above: Order Comment: Speci men Type: BLOOD SPECIMENOrdering Facility: [facility] Address: [address] [place] [address] Performed By: #### L [id number] ####[facility] LABCLIA [id number] [address] HIGH SENSITIVITY TROPONIN T (THIRD) 3 HRS AFTER INITIALon 10-24-2024 Troponin T.cardiac High sensitivity method [Mass/Vol] 34 ng/L High <12 [facility] Comment on above: Order Comment: Speci men Type: BLOOD SPECIMENOrdering Facility: [facility] Address: [address] [place] [address] Performed By: #### 3 2355-0 #### [facility] CLIA [id number] [address] [place] Lactate (Bld) [Moles/Vol]on 10-24-2024 Lactate [Moles/Vol] 1.8 mmol/L Normal 0.5-2.2 [facility] Comment on above: Order Comment: Speci brian Type: BLOOD SPECIMENOrdering Facility: [facility] Address: [address] [place] [address] Performed By: #### 3 2693-4 ####[facility] LABCLIA [id number] [place] [address] [facility] MAGNESIUMon 10-24-2024 Magnesium [Mass/Vol] 2.2 mg/dL 1.9 - 2 .7 mg/dL [facility] Magnesium [Mass/Vol] 2.2 mg/dL Normal 1.9-2.7 [facility] Comment on above: Performed By: #### C H8, HEPATIC, MG #### [facility] [address] [place] [address], Magnesium SerPl-mCncon 10-24 Magnesium [Mass/Vol] 1.9 mg/dL Normal 1.7-2.3 [facility] Comment on above: Order Comment: Speci men Type: BLOOD SPECIMENOrdering Facility: [facility] Address: [address] [place] [address] Performed By: #### 2 4323-8, 64926-6, 80809-4 ####[facility]CLIA [id number] [place] [id number] [facility] NT-proBNP SerPl-mCncon 10-24 Natriuretic peptide.B prohormone N-Terminal [Mass/Vol] 1007 pg/mL High <125 [facility] Comment on above: Order Comment: Speci men Type: BLOOD SPECIMENOrdering Facility: [facility] Address: [address] [place] [address] Performed By: #### 2 4323-8, 74173-2, 12186-0 ####[facility] LABCLIA [id number] [place] [address] [facility] No Panel Informationon 10-24 Interpretation and review of laboratory results Normal [facility] Progress Noteson 10-24-2024 Internal Audit Senior Manager Authentication Interface Message Text [facility] Internal Medicine Intermediate Plan Note Elis Bills Age [age] year old male ROOM: [place] [address] Admitted No admission date for patient encounter. [...] - nicotine patch Remainder of plan per internet sourcer note. Raji Curran MD Internal Medicine, PGY-3 Available via [employer] Normal [facility] RED/YELLOW TOP TUBE, [...] Glucose Ql (U) Negative Normal Negative [facility] Comment on above: Order Comment: Pyatt ignacio troponin can result from acute myocardial [...] H STRP #### [facility] [address] [place], [address] Protein (U) [Mass/Vol] 70 mg/dL Abnormal Negative [facility] Comment on above: Order Comment: Pyatt ignacio troponin can result from acute myocardial [...] H STRP #### [facility] [address] [place], [place], U APPEAR Clear Normal Clear [facility] Comment on above: Order Comment: Pyatt ignacio troponin can result from acute myocardial [...] H STRP #### [facility] [address] [place], [place], U BILI Negative Normal Negative [facility] Comment on above: Order Comment: Pyatt ignacio troponin can result from acute myocardial [...] #### H STRP #### [facility] [address] [place] [address], [address] U BLOOD Trace Abnormal Negative [facility] Comment on above: Order Comment: Pyatt ignacio troponin can result from acute myocardial [...] #### H STRP #### [facility] [address] [place] [address], [address] U COLOR Yellow Normal Colorless [facility] Comment on above: Order Comment: Pyatt ignacio troponin can result from acute myocardial [...] #### H STRP #### [facility] [address] [place] [address], [address] U KETONE Negative Normal Negative [facility] Comment on above: Order Comment: Pyatt ignacio troponin can result from acute myocardial [...] #### H STRP #### [facility] [address] [place] [address], [address] U LEUK Negative Normal Negative [facility] Comment on above: Order Comment: Pyatt ignacio troponin can result from acute myocardial [...] H STRP #### [facility] [address] [place], [address] U NITRITE Negative Normal Negative [facility] Comment on above: Order Comment: Pyatt ignacio troponin can result from acute myocardial [...] H STRP #### [facility] [address] [place], [place], U PH 6.5 Normal 5.0-8.0 [facility] Comment on above: Order Comment: Pyatt ignacio troponin can result from acute myocardial [...] H STRP #### [facility] [address] [place], [place], U RBC 0-2 Normal 0-2 [facility] Comment on above: Order Comment: Pyatt ignacio troponin can result from acute myocardial [...] #### H STRP #### [facility] [address] [place] [address], [address] U SG 1.036 High <=1.030 [facility] Comment on above: Order Comment: Pyatt ignacio troponin can result from acute myocardial [...] #### H STRP #### [facility] [address] [place] [address], [address] U UROBILI Negative Normal Negative [facility] Comment on above: Order Comment: Pyatt ignacio troponin can result from acute myocardial [...] #### H STRP #### [facility] [address] [place] [address], [address] U WBC 0-2 Normal 0-2 [facility] Comment on above: Order Comment: Pyatt ignacio troponin can result from acute myocardial [...] #### H STRP #### [facility] [address] [place] [address], [address] XR CHEST 1V FRONTALon 2024 XR CHEST [...] Other: . IMPRESSION: No acute radiographic abnormality. Vp Legal Affairs: YAIR Transcribe Date/Time: Oct 24 2024 10:21A Dictated by : AFTAB MARTINEZ MD This examination was interpreted and the report reviewed and electronically signed by: AFTAB MARTINEZ MD on Oct 24 2024 10:22AM EST [id number] N Normal [facility] XR CHEST AP OR [...] or mild edema. MACRO: None Normal [facility] XR Chest Single viewon 10-24 EXAMINATION: [...] atypical/viral pneumonia or mild edema. MACRO: None [facility] observation (narrative) [facility] XR Chest Single viewOrdered By: Hilda De León on 10-24-2024 [facility] Work Phone: [phone] 09-12-2024 [id number] HNO ID: [id number] Author: VARUN PRATT, PT Service: ? Author Type: Physical Therapist Type: [id number] Filed: 09/12/2024 12:56 Note Text: [facility] Rehabilitation [facility] Sports Therapy Physical Therapy Plan of Care Certification Patient Name: Elis Bills : 1960 [facility] #: [id number] Date: 09/12/2024 To: Lois Kee MD From [...] Goals for Episode of Care: established 09/12/24 Pike in home exercise program. Restore pain-free lumbar [...] Planned: 4 Planned Treatment Interventions: Therapeutic exercise (70292), Neuromuscular re-education (02146), Manual therapy (49565), Therapeutic activities (00376), Self-prison management (27079), Patient/Family/Caregi sudhakar Education, Body Mechanics Training PLAN [...] the treatment plan for Elis Tim Bills, [facility]# [id number] for the period of 09/12/24 -- 10/17/24, established on 09/12/2024. Signature certifies the need for therapy services. Normal [facility] CNTHERAPYon 09-12-2024 CNTHERAPY OT/PT/Speech Visit (PTWS) ELIS BILLS ([id number]) 1960 M Date Time Provider Department 09/12/24 8:30 AM VARUN PRATT PTWS Date Time Provider Department Center 09/12/2024 8:30 AM [id number], [facility] PTWS Mila Sanchez Reason for Visit: [...] Take 2.5 mg by mouth once daily. Internal Audit Senior Manager: Addendum Therapy (PT/OT/Speech/Resp) ID: [id number] 09/12/2024 9:11 AM Author: VARUN PRATT Signed by VARUN PRATT PT on 09/12/2024 at 9:11 AM * * * This document replaces document [id number] * * * Document text: Program_ID:[id number] Access Code: [email or web address] URL: [email or web address] Date: 09-12-2024 Prepared By: Varun Pratt Program [...] 10 reps - Seated Flexion Stretch with [place] Ball - 2 x daily - 7 x weekly - 2 sets - 10 reps - Seated Thoracic Flexion and Rotation with [place] Ball - 2 x daily - 7 x weekly - 2 sets - 10 reps ----- Normal [facility] THERAPY NTon 09-12-2024 THERAPY NT HNO ID: [id number] Author: VARUN PRATT PT Service: ? Author Type: Physical Therapist Type: Therapy (PT/OT/Speech/Resp) Filed: 09/12/2024 09:11 Note Text: Program_ID:[id number] Access Code: [email or web address] URL: [email or web address] Date: 09-12-2024 Prepared By: Varun Pratt Program [...] 10 reps - Seated Flexion Stretch with Djib[place]ian Ball - 2 x daily - 7 x weekly - 2 sets - 10 reps - Seated Thoracic Flexion and Rotation with [place]ib[place]ian Ball - 2 x daily - 7 x weekly - 2 sets - 10 reps Normal [facility] CNPNon 09-05-2024 CNPN Telephone (NEAGCLM) ELIS BILLS ([id number]) 1960 M Date Time Provider Department 09/05/24 [...] Encounter Status:Closed by [place] on 09/05/24 [facility] Donna 08-28-2024 JELENA Telephone (NEAGCLM) ELIS BILLS ([id number]) 1960 M Date Time Provider Department 08/28/24 LOIS KEEAGCLM During your visit today, we recorded the following information about you: Puma Nicolas MA 08/28/2024 2:37 PM Signed Referral placed for physical therapy in the [facility] Internal Referral Portal. Confirmation # [id number] Puma Nicolas Ma Allergies As of Date: [...] by PUMA NICOLAS MA on 08/28/24 Normal [facility] CNOVon 08-10-2024 CNOV Office Visit (NEAGCLM) ELIS BILLS ([id number]) 1960 M Date Time Provider Department 08/10/24 1:00 PM LOIS KEE NEAGCLM During your visit today, we recorded the following information about you: Pulse Blood pressure Weight Height 63/minute 170/90 116.8 kg 1.753 m Lois Kee MD 08/10/2024 1:30 PM Signed NEUROSURGERY POST-OP NOTE Lois Kee MD [facility] Date of visit: August 10, 2024 Patient Name: Mr.Donald Tim Bills Date of : 1960 Current Age: [age] year old Sex: male MRN/E# [id number] Last Office Visit: 08/02/2024 SURGERY: L1 decompression [...] Strength Exam (more content not included)... Normal [facility] Basic metabolic 2000 panelon 07-29-2024 Anion gap [Moles/Vol] 10 mmol/L Normal 8-15 [facility] Comment on above: Order Comment: Speci men Type: BLOOD SPECIMENOrdering Facility: [facility] Address: [address] [place] [address] Performed By: #### 2 692-2, 06648-6 ####[facility] LAB[facility]ATORYCLIA [id number] [place] [address] [place] Calcium [Mass/Vol] 8.6 mg/dL Normal 8.5-10.2 [facility] Comment on above: Order Comment: Speci men Type: BLOOD SPECIMENOrdering Facility: [facility] Address: [address] [place] [address] Performed By: #### 2 692-2, 45223-1 ####[facility] LABORATORYCLIA [id number] [place] [address] [place] Chloride [Moles/Vol] 86 mmol/L Low 98-107 [facility] Comment on above: Order Comment: Speci men Type: BLOOD SPECIMENOrdering Facility: [facility] Address: [address] [place] [address] Performed By: #### 2 692-2, 40490-4 ####[facility]ORATORYCLIA [id number] [address] CO2 [Moles/Vol] 25 mmol/L Normal 22-30 [facility] Comment on above: Order Comment: Speci men Type: BLOOD SPECIMENOrdering Facility: [facility] Address: [address] [place] [address] Performed By: #### 2 692-2, 11107-7 ####[facility] [id number] [address] Creatinine [Mass/Vol] 0.98 mg/dL Normal 0.73-1.22 [facility] Comment on above: Order Comment: Speci men Type: BLOOD SPECIMENOrdering Facility: [facility] Address: [address] [place] [address] Performed By: #### 2 692-2, 30473-5 ####[facility] [id number] [address] Creatinine and Glomerular filtration rate.predicted panel (S/P/Bld) 86 mL/min/1.73m??? Normal >=60 [facility] Comment on above: Order Comment: Speci men Type: BLOOD SPECIMENOrdering Facility: [facility] Address: [address] [place] [address] Result Comment: Lala mated Glomerular Filtration Rate [...] actual GFR. Performed By: #### 2 692-2, 46865-4 ####[facility]ATORYCLIA [id number] [place] [address] [place] Glucose [Mass/Vol] 113 mg/dL High 74-99 [facility] Comment on above: Order Comment: Wilbert torres Type: BLOOD SPECIMENOrdering Facility: [facility] Address: [address] [place] [address] Result Comment: The [place] Diabetes Association (ADA) provides guidance for cutoff [...] Standards of Medical Care in Diabetes 2016, [place] [employer] Association. Diabetes Care. 2016.39(Suppl 1). Performed By: #### 2 692-2, 06613-0 ####[facility]ATORYCLIA [id number] [place] [address] [place] Potassium [Moles/Vol] 5.3 mmol/L High 3.7-5.1 [facility] Comment on above: Order Comment: Wilbert torres Type: BLOOD SPECIMENOrdering Facility: [facility] Address: [address] [place] [address] Performed By: #### 2 692-2, 47048-2 ####[facility]ATORYCLIA [id number] [place] [address] [place] Sodium [Moles/Vol] 121 mmol/L Low 136-144 [facility] Comment on above: Order Comment: Wilbert torres Type: BLOOD SPECIMENOrdering Facility: [facility] Address: [address] [place] [address] Performed By: #### 2 692-2, 80692-5 ####[facility]ATORYCLIA [id number] [place] [address] [place] Urea nitrogen [Mass/Vol] 11 mg/dL Normal 9-24 [facility] Comment on above: Order Comment: Speci men Type: BLOOD SPECIMENOrdering Facility: [facility] Address: [facility] [place] [id number] Performed By: #### 2 692-2, 99927-1 ####[facility]ATORYCLIA [id number] [place] [address] [facility] CASE MANAGEMon 07-29-2024 CASE MANAGEM HNO ID: [id number] Author: AUSTIN WALLACE RN Service: ? Author [...] the process utilized to ensure compliance with [facility] policy regarding Inpatient Admission and Observation Services. [...] order as documented evidence of concurrence. Normal [facility] CBC panel Auto (Bld)on 07-29 Erythrocyte distribution width (RBC) [Ratio] 13.4 % Normal 11.5-15.0 [facility] Comment on above: Order Comment: Speci men Type: BLOOD SPECIMENOrdering Facility: [facility] Address: [address] [place] [address] Performed By: #### 3 2355-0 #### [facility] CLIA [id number] [address] OF [facility] Hematocrit (Bld) [Volume fraction] 38.0 % Low 39.0-51.0 [facility] Comment on above: Order Comment: Speci men Type: BLOOD SPECIMENOrdering Facility: [facility] Address: [address] [place] [address] Performed By: #### 3 2355-0 #### [facility] CLIA [id number] [address] OF [facility] Hemoglobin (Bld) [Mass/Vol] 12.7 g/dL Low 13.0-17.0 [facility] Comment on above: Order Comment: Speci men Type: BLOOD SPECIMENOrdering Facility: [facility] Address: [address] [place] [address] Performed By: #### 3 2355-0 #### [facility] CLIA [id number] [address] [facility] MCH (RBC) [Entitic mass] 28.8 pg Normal 26.0-34.0 [facility] Comment on above: Order Comment: Speci men Type: BLOOD SPECIMENOrdering Facility: [facility] Address: [address] [place] [address] Performed By: #### 3 2355-0 #### [facility] CLIA [id number] [address] MCHC (RBC) [Mass/Vol] 33.4 g/dL Normal 30.5-36.0 [facility] Comment on above: Order Comment: Speci men Type: BLOOD SPECIMENOrdering Facility: [facility] Address: [address] [place] [address] Performed By: #### 3 2355-0 #### [facility] CLIA [id number] [address] MCV (RBC) [Entitic vol] 86.2 fL Normal 80.0-100.0 [facility] Comment on above: Order Comment: Speci men Type: BLOOD SPECIMENOrdering Facility: [facility] Address: [address] [place] [address] Performed By: #### 3 2355-0 #### [facility] CLIA [id number] [address] Nucleated RBC (Bld) [#/Vol] 10*3/uL Normal <0.01 [facility] Comment on above: Order Comment: Speci men Type: BLOOD SPECIMENOrdering Facility: [facility] Address: [facility] [place] [address] Performed By: #### 3 2355-0 #### [facility] CLIA [id number] [address] OF [place] Platelet mean volume (Bld) [Entitic vol] 9.3 fL Normal 9.0-12.7 [facility] Comment on above: Order Comment: Speci men Type: BLOOD SPECIMENOrdering Facility: [facility] Address: [address] [place] [address] Performed By: #### 3 2355-0 #### [facility] CLIA [id number] [address] Platelets (Bld) [#/Vol] 296 10*3/uL Normal 150-400 [facility] Comment on above: Order Comment: Speci men Type: BLOOD SPECIMENOrdering Facility: [facility] Address: [facility] [place] [address] Performed By: #### 3 2355-0 #### [facility] CLIA [id number] [address] OF [place] RBC (Bld) [#/Vol] 4.41 10*6/uL Normal 4.20-6.00 [facility] Comment on above: Order Comment: Karthikeyanoswaldo torres Type: BLOOD SPECIMENOrdering Facility: [facility] Address: [address] [place] [address] Performed By: #### 3 2355-0 #### [facility] CLIA [id number] [address] WBC (Bld) [#/Vol] 12.07 10*3/uL High 3.70-11.00 [facility] Comment on above: Order Comment: Wilbert torres Type: BLOOD SPECIMENOrdering Facility: [facility] Address: [address] [place] [address] Performed By: #### 3 2355-0 #### [facility] CLIA [id number] [address] CNDSon 07-29-2024 [facility] HNO ID: [id number] Author: ISABELLA SANTACRUZ PA-C Service: Neurosurgery Author Type: Physician Artificial Leather Calender Operator Type: Discharge Summary Filed: 07/29/2024 15:16 Note [...] 160-9-4.8 mcg/actuation HFA aerosol inhaler Generic drug: xctgmhsvbl-lulcsobn-i ormoterol budesonide 0.5 mg/2 mL nebulizer solution Commonly known as: PULMICORT Use 2 mL via nebulizer two times a day. lisinopril 2.5 mg tablet montelukast 10 mg tablet Commonly known as: SINGULAIR Take 1 tablet by mouth daily at bedtime. nicotine polacrilex 4 mg gum Commonly known as: NICORETTE Take 1 Each by mouth as needed. omeprazo (more content not included)... Normal [facility] CONSULTon 07-29-2024 CONSULT HNO ID: [id number] Author: RADHA LUO MD Service: Nephrology Author [...] 10 mg ORAL DAILY (6 AM) Lisandro Fultno PA-C 10 mg at 07/29/24 0609 mometasone [...] S2 Lungs (more content not included)... Normal [facility] CONSULT PROGon 07-29-2024 CONSULT PROG HNO ID: [id number] Author: OBIE CHANG DO Service: Hospital Medicine Author Type: Physician Type: Consult Progress Note Filed: 07/29/2024 11:02 Note Text: DEPARTMENT OF HOSPITAL MEDICINE CONSULT PROGRESS NOTE SERVICE DATE: 07/29/2024 SERVICE TIME: 10:52 AM Primary Care Physician: Pilar Steele, DO NIGHT AND WEEKEND COVERAGE: [place] COVERAGE: After 7pm, please call cross cover pager #[phone] Subjective INTERVAL HPI: 64-year-old male with past [...] and Airways Line Duration Peripheral 07/28/24 0931 [facility] Short Right Hand 18 Gauge 1 day [...] July 29, 2024 TIME: 10:52 AM etx [id number] Normal [facility] Osmolality SerPlon 5 Osmolality [Osmolality] 270 mosm/kg Low 275-300 [facility] Comment on above: Order Comment: Speci men Type: BLOOD SPECIMENOrdering Facility: [facility] Address: [address] [place] [address] Performed By: #### 2 692-2, 69221-5 ####[facility]ORYCLIA [id number] [place] [address] [place] Osmolality Uron 07-29-2024 Osmolality (U) [Osmolality] 368 mosm/kg Normal 50-1200 [facility] Comment on above: Order Comment: Speci men Type: URINE SPECIMENOrdering Facility: [facility] Address: [address] [place] [address] Performed By: #### 6 00-7 #### [facility] CLIA [id number] 1 [place] [address] [place] Sodium ?Tm Ur-sCncon 025 Sodium Unsp time (U) [Moles/Vol] <20 Normal 14-216 [facility] Comment on above: Order Comment: Speci men Type: URINE SPECIMENOrdering Facility: [facility] Address: [address] [place] [address] Performed By: #### 6 00-7 #### [facility] CLIA [id number] 1 [place] [address] [place] Sodium SerPl-sCncon 07-29-19 25 Sodium [Moles/Vol] 128 mmol/L Low 136-144 [facility] Comment on above: Order Comment: Speci men Type: BLOOD SPECIMENOrdering Facility: [facility] Address: [address] [place] [address] Performed By: #### 6 00-7 #### [facility] CLIA [id number] [address] Sodium [Moles/Vol] 129 mmol/L Low 136-144 [facility] Comment on above: Order Comment: Speci men Type: BLOOD SPECIMENOrdering Facility: [facility] Address: [address] [place] [address] Performed By: #### 2 951-2 ####[facility]ORYCLIA [id number] [address] Sodium [Moles/Vol] 125 mmol/L Low 136-144 [facility] Comment on above: Order Comment: Speci men Type: BLOOD SPECIMENOrdering Facility: [facility] Address: [address] [place] [address] Performed By: #### 2 951-2 ####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 Baseline Cognition: Oriented to self, Oriented to place, Oriented to time, Oriented to situation SUBJECTIVE agreeable to session COGNITION Responsiveness: Alert Follows Commands: 3-step Commands THERAPY DIAGNOSIS Reduced mobility-other, Decreased activities of daily living (ADL) TREATMENT INTERVENTIONS Evaluation Skilled Treatment Time (minutes): 15 $ Evaluation - Low (18623) Billed Units: 1 unit Educated patient on [...] of Occupational Therapy, Standing Balance to Improve [place]ike with ADLs/Self-Care, Transfer - Toilet/Commode THERAPEUTIC SKILLS [...] July 29, 2024 TIME: 11:39 AM Normal [facility] THERAPY NT HNO ID: [id number] Author: ANDREA PISANO, PT Service: Physical Therapy Author Type: Physical Therapist Type: Therapy (PT/OT/Speech/Resp) Filed: 07/29/2024 09:17 Note Text: Physical Therapy Evaluation Summary SERVICE DATE: 07/29/2024 SERVICE TIME: 814 ROOM: [id number]- PT 6 Clicks Score: 21 DISCHARGE RECOMMENDATIONS [...] FUNCTIONAL LEVEL Within Functional Limits 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, 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, 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 SUBJECTIVE Patient pleasant and agreeable to PT session THERAPY DIAGNOSIS Muscle Weakness (generalized), General symptoms and signs-other TREATMENT INTERVENTIONS Evaluation, Therapeutic Activity (69757) $ Evaluation-Moderate (10604) Billed Units: 1 unit Therapeutic Activity (62638) Treatment Minutes: 9 $ Therapeutic Activity (92431) Billed Units: 1 unit Educated patient on [...] July 29, 2024 TIME: 9:14 AM Normal [facility] ANES POSTPROC EVALon 025 ANES POSTPROC EVAL HNO ID: [id number] Author: PAOLA REYES MD Service: Anesthesiology Author Type: Anesthesiologist Type: Anesthesia Postprocedure Evaluation Filed: 07/28/2024 16:23 Note Text: POST ANESTHESIA EVALUATION NOTE : 1960 Procedure Summary Date: 07/28/24 Room / Location: [place] Anesthesia Start: 1155 Anesthesia Stop: 1431 Procedures: DECOMPRESSION LAMINECTOMY LUMBAR POSTERIOR LEVEL 1 (Spine Lumbar) DECOMPRESSION LAMINECTOMY 1ST ADD'L LUMBAR SEGMENT (Spine Lumbar) Diagnosis: Spinal stenosis of lumbar region with neurogenic claudication (Spinal stenosis of lumbar region with neurogenic claudication [M48.062]) Surgeons: Lois Kee MD Responsible Provider: Poala Reyes MD Anesthesia Type: general ASA Status: [...] July 28, 2024 TIME: 3:18 PM CSN: [id number] [facility] ANES PRE-OPon 07-28-2024 ANES PRE-OP HNO ID: [id number] Author: PAOLA REYES MD Service: Anesthesiology Author Type: Anesthesiologist Type: Anesthesia Preprocedure Evaluation Filed: 07/28/2024 10:40 Note Text: ANESTHESIOLOGY DAY OF SURGERY NOTE : 1960 Procedure Information Date/Time: 07/28/24 1045 Procedures: DECOMPRESSION LAMINECTOMY LUMBAR POSTERIOR LEVEL 1 (Spine Lumbar) DECOMPRESSION LAMINECTOMY 1ST ADD'L LUMBAR SEGMENT (Spine Lumbar) Location: [place] Surgeons: Lois Kee MD Estimated [...] and consent discussed: yes. Patient / Responsible Green Party agrees to proceed: yes Patient / Surrogate [...] July 28, 2024 TIME: 10:34 AM CSN: [id number] [facility] CONSULTon 07-28-2024 CONSULT HNO ID: [id number] Author: KAYDEN KOHLI MD Service: Hospital Medicine Author Type: Physician Type: Consults Filed: 07/28/2024 19:14 Note Text: DEPARTMENT OF HOSPITAL MEDICINE INITIAL CONSULT SERVICE DATE: 07/28/2024 SERVICE TIME: 7:02 PM Primary Care Physician: Pilar Steele DO NIGHT AND WEEKEND COVERAGE: [place] COVERAGE: From 7am - 7pm, please call team pager After 7pm, please call cross cover pager #[phone] REASON FOR CONSULT: . REQUESTING PHYSICIAN: Dr. [...] patient been tested for COVID-19 outside of [facility]? No PAST MEDICAL HISTORY Diagnosis Date COPD [...] mg OR (more content not included)... Normal [facility] OPERATIVE NOon 07-28-2024 OPERATIVE NO HNO ID: [id number] Author: LOIS KEE MD Service: Neurosurgery Author Type: Physician Type: Operative Report Filed: 08/09/2024 09:06 Note Text: OPERATIVE/PROCEDURE REPORT LOG ID: [id number] SURGERY/PROCEDURE DATE: 07/28/2024 INCISION/PROCEDURE START TIME: 12:43 PM INCISION CLOSE/PROCEDURE END TIME: 2:13 PM SURGEON(S)/PROCEDURAL IST(S) AND PRINTING MACHINE OPERATOR TAPE RULES(S): Surgeons and Role: * Lois Kee MD - Primary Physician Artificial Leather Calender Operator: Lisandro Fulton PA-C; Austin Solo PA-C SURGERY/PROCEDURE(S): [...] was closed with inverted 2-0 Vicryl sutures. Tiffani were used to close the skin. All [...] August 09, 2024 TIME: 9:01 AM Normal [facility] XR LUMBAR SPECIFY 1Von [...] notes for further details of the procedure. Vp Legal Affairs: PSC[employer] Transcribe Date/Time: Aug 01 2024 1:44P Dictated by : CRISTIAN FREITAS MD This examination was interpreted and the report reviewed and electronically signed by: CRISTIAN FREITAS MD on Aug 01 2024 1:47PM EST [id number] Normal [facility] XR VERIFY LEVEL H-LAFFC-DUfd 07-28-2024 XR VERIFY LEVEL L-SPINE-NB * * [...] by Dr. Kee on 07/28/2024 1:02 PM. Vp Legal Affairs: [employer] Transcribe Date/Time: Jul 28 2024 1:02P Dictated by : SUNITA SMITH MD This examination was interpreted and the report reviewed and electronically signed by: SUNITA SMITH MD on Jul 28 2024 1:11PM EST [id number] N [facility] 07-27-2024 [facility] Telephone (NEAGCLM) ELIS BILLS ([id number]) 1960 Date Time Provider Department 07/27/24 LOIS KEE NEKRISTY During your visit today, we recorded the following information about you: Stephane Bazan 07/27/2024 9:21 AM Signed Contacted patient to remind them of their arrival time for surgery with Dr. Lois Kee on 07/28/24. Patient is to arrive at [facility] at 8:30am for surgery at 10:30am. Spoke with patient and they are aware of all arrival information. Allergies As of Date: 07/27/2024 Noted Allergy Reaction PENICILLINS 08/27/2014 14 - Other: See Comments Comments: Respiratory distress as a baby DALIRESP (ROFLUMILAST) 07/14/2024 2 - Rash Date Reviewed: 07/14/2024 Reviewed by: Harvey Purvis APRN.PRODUCTION MACHINE SHOP SUPERVISOR - Fully Assessed Reason for Visit: Preparations [...] Encounter Status:Closed by STEPHANE BAZAN on 07/27/24 [facility] NURSING PROGon 07-27-2024 NURSING PROG HNO ID: [id number] Author: CANDE BEAL APRN.PRODUCTION MACHINE SHOP SUPERVISOR Service: Anesthesiology Author Type: Nurse Practitioner Type: Nursing Progress Note Filed: 07/27/2024 10:16 Note Text: Abnormal labs from 07/14/24 from PAT appointment reviewed with Dr. Yen, anesthesiologist- Na 127, Cl 90, BUN 4. Okay to proceed with case tomorrow- pt will be evaluated DOS per Dr. Yen. [facility] NURSING PROGon 07-21-2024 NURSING PROG HNO ID: [id number] Author: YASHIRA LEYVA APRN.PRODUCTION MACHINE SHOP SUPERVISOR Service: ? Author Type: Nurse Practitioner Type: Nursing Progress Note Filed: 07/21/2024 13:39 Note Text: Summary: PAT Pulmonary clearance in Epic 07/21/2023 [facility] CNCOon 07-20-2024 CNCO Letter Text [facility] CNPNon 07-20-2024 CNPN Telephone ([facility]) ELIS BILLS ([id number]) 1960 M Date Time Provider Department 07/20/24 SHELTON AGUILERA [facility] During your visit today, we recorded the following information about you: Dalia Segura 07/20/2024 3:46 PM Signed Type of form: Medical clearance for L2-L4 Laminectomy DOS: 07/28/24 TIMO Form received via fax When form is completed, Fax form to [phone] Form has been forwarded to Physician Mailbox: Dalia Garcia 07/21/2024 12:54 PM Signed Completed/signed form faxed back to Dr. Kee's office. Dalia Segura Allergies As of Date: 07/20/2024 Noted Allergy Reaction PENICILLINS 08/27/2014 14 - Other: See Comments Comments: Respiratory distress as a baby DALIRESP (ROFLUMILAST) 07/14/2024 2 - Rash Date Reviewed: 07/14/2024 Reviewed by: Harvey Purvis APRN.PRODUCTION MACHINE SHOP SUPERVISOR - Fully Assessed Reason for Visit: Medical [...] on 07/21/24 [facility] NURSING PROGon 07-20-2024 NURSING PROG HNO ID: [id number] Author: ARNULFO HERNANDEZ APRN.PRODUCTION MACHINE SHOP SUPERVISOR Service: General Surgery Author Type: Nurse Practitioner Type: Nursing Progress Note Filed: 07/20/2024 14:46 Note Text: Summary: PAT FELIPE Vizcaino at Dr. Kee's office asking for pulmonary optimization as requested by anesthesia. Normal [facility] Donna 07-17-2024 [facility] Telephone ([facility]) ELIS BILLS ([id number]) 1960 Date Time Provider Department 07/17/24 POLLY MCFARLANE During your visit today, we recorded the following information about you: Allergies As of Date: 07/17/2024 Noted Allergy Reaction PENICILLINS 08/27/2014 14 - Other: See Comments Comments: Respiratory distress as a baby DALIRESP (ROFLUMILAST) 07/14/2024 2 - Rash Date Reviewed: 07/14/2024 Reviewed by: Harvey Purvis APRN.PRODUCTION MACHINE SHOP SUPERVISOR - Fully Assessed Prescriptions as of 07/17/2024 [...] Status:Closed by POLLY MCFARLANE on 07/17/24 Normal [facility] NURSING PROGon 07-17-2024 NURSING PROG HNO ID: [id number] Author: POLLY MCFARLANE APRN.PRODUCTION MACHINE SHOP SUPERVISOR Service: Anesthesiology Author Type: Nurse Practitioner Type: [...] please follow up on pulmonary optimization. Normal [facility] Bacteria Ur Culton Bacteria identified Cx Nom (U) CULTURE, URINE: 10,000-<50,000 CFU/ml Normal Urogenital Mark Normal [facility] Comment on above: Performed By: #### 6 30-4 #### [facility] CLIA [id number] [address] CBC panel Auto (Bld)on 07-14 Erythrocyte distribution width (RBC) [Ratio] 13.7 % Normal 11.5-15.0 [facility] Comment on above: Order Comment: Speci men Type: BLOOD SPECIMENOrdering Facility: [facility] Address: [address] [place] [address] Performed By: #### 5 8410-2 ####[facility]IA [id number] [address] Hematocrit (Bld) [Volume fraction] 39.9 % Normal 39.0-51.0 [facility] Comment on above: Order Comment: Speci men Type: BLOOD SPECIMENOrdering Facility: [facility] Address: [address] [place] [address] Performed By: #### 5 8410-2 ####[facility]IA [id number] [address] Hemoglobin (Bld) [Mass/Vol] 13.8 g/dL Normal 13.0-17.0 [facility] Comment on above: Order Comment: Speci men Type: BLOOD SPECIMENOrdering Facility: [facility] Address: [address] [place] [address] Performed By: #### 5 8410-2 ####[facility]CLIA [id number] [address] [facility] MCH (RBC) [Entitic mass] 29.7 pg Normal 26.0-34.0 [facility] Comment on above: Order Comment: Speci men Type: BLOOD SPECIMENOrdering Facility: [facility] Address: [address] [place] [address] Performed By: #### 5 8410-2 ####[facility]ORYCLIA [id number] [place] [address] [place] MCHC (RBC) [Mass/Vol] 34.6 g/dL Normal 30.5-36.0 [facility] Comment on above: Order Comment: Speci men Type: BLOOD SPECIMENOrdering Facility: [facility] Address: [address] [place] [address] Performed By: #### 5 8410-2 ####[facility]CLIA [id number] [address] [place] MCV (RBC) [Entitic vol] 85.8 fL Normal 80.0-100.0 [facility] Comment on above: Order Comment: Speci men Type: BLOOD SPECIMENOrdering Facility: [facility] Address: [address] [place] [address] Performed By: #### 5 8410-2 ####[facility]ORYCLIA [id number] [address] STATES OF [facility] Nucleated RBC (Bld) [#/Vol] 10*3/uL Normal <0.01 [facility] Comment on above: Order Comment: Speci men Type: BLOOD SPECIMENOrdering Facility: [facility] Address: [address] [place] [address] Performed By: #### 5 8410-2 ####[facility]ORYCLIA [id number] [address] [place] Platelet mean volume (Bld) [Entitic vol] 9.3 fL Normal 9.0-12.7 [facility] Comment on above: Order Comment: Speci men Type: BLOOD SPECIMENOrdering Facility: [facility] Address: [address] [place] [address] Performed By: #### 5 8410-2 ####[facility]ORYCLIA [id number] [address] [place] Platelets (Bld) [#/Vol] 271 10*3/uL Normal 150-400 [facility] Comment on above: Order Comment: Speci men Type: BLOOD SPECIMENOrdering Facility: [facility] Address: [address] [place] [address] Performed By: #### 5 8410-2 ####[facility]ORYCLIA [id number] [address] OF [facility] RBC (Bld) [#/Vol] 4.65 10*6/uL Normal 4.20-6.00 [facility] Comment on above: Order Comment: Speci men Type: BLOOD SPECIMENOrdering Facility: [facility] Address: [address] [place] [address] Performed By: #### 5 8410-2 ####[facility]ORYCLIA [id number] [address] WBC (Bld) [#/Vol] 7.91 10*3/uL Normal 3.70-11.00 [facility] Comment on above: Order Comment: Speci men Type: BLOOD SPECIMENOrdering Facility: [facility] Address: [address] [place] [address] Performed By: #### 5 8410-2 ####[facility]ORYCLIA [id number] [address] CONFIRM BLOOD TYPEon 024 ABO O Normal [facility] Comment on above: Order Comment: Speci men Type: BLOOD SPECIMEN [facility] Address: [address] [place] [address] Performed By: #### C ONO #### [facility] CLIA [id number] [address] Rh Nom (Bld) Positive Normal [facility] Comment on above: Order Comment: Speci men Type: BLOOD SPECIMEN [facility] Address: [address] [place] [address] Performed By: #### C ONABO #### [facility] CLIA [id number] [address] ABO group Nom (Bld) O [facility] Rh Nom (Bld) Positive [facility] Comprehensive metabolic 2000 panelon 07-14-2024 Albumin [Mass/Vol] 4.2 g/dL Normal 3.9-4.9 [facility] Comment on above: Order Comment: Speci men Type: BLOOD SPECIMENOrdering Facility: [facility] Address: [address] [place] [address] Performed By: #### 6 00-7 #### [facility] CLIA [id number] [address] ALP [Catalytic activity/Vol] 98 U/L Normal 38-113 [facility] Comment on above: Order Comment: Speci men Type: BLOOD SPECIMENOrdering Facility: [facility] Address: [address] [place] [address] Performed By: #### 6 -7 #### [facility] CLIA [id number] [address] ALT With P-5'-P [Catalytic activity/Vol] 24 U/L Normal 10-54 [facility] Comment on above: Order Comment: Speci men Type: BLOOD SPECIMENOrdering Facility: [facility] Address: [address] [place] [address] Performed By: #### 6 00-7 #### [facility] CLIA [id number] [address] Anion gap [Moles/Vol] 12 mmol/L Normal 8-15 [facility] Comment on above: Order Comment: Speci men Type: BLOOD SPECIMENOrdering Facility: [facility] Address: [address] [place] [address] Performed By: #### 6 00-7 #### [facility] CLIA [id number] [address] AST With P-5'-P [Catalytic activity/Vol] 22 U/L Normal 14-40 [facility] Comment on above: Order Comment: Speci men Type: BLOOD SPECIMENOrdering Facility: [facility] Address: [address] [place] [address] Performed By: #### 6 00-7 #### [facility] CLIA [id number] [address] [place] Bilirubin [Mass/Vol] 0.6 mg/dL Normal 0.2-1.3 [facility] Comment on above: Order Comment: Speci men Type: BLOOD SPECIMENOrdering Facility: [facility] Address: [address] [place] [address] Performed By: #### 6 00-7 #### [facility] CLIA [id number] [address] [place] Calcium [Mass/Vol] 9.2 mg/dL Normal 8.5-10.2 [facility] Comment on above: Order Comment: Speci men Type: BLOOD SPECIMENOrdering Facility: [facility] Address: [address] [place] [address] Performed By: #### 6 -7 #### [facility] CLIA [id number] [address] [place] Chloride [Moles/Vol] 90 mmol/L Low 98-107 [facility] Comment on above: Order Comment: Speci men Type: BLOOD SPECIMENOrdering Facility: [facility] Address: [address] [place] [address] Performed By: #### 6 -7 #### [facility] CLIA [id number] [address] [place] CO2 [Moles/Vol] 25 mmol/L Normal 22-30 [facility] Comment on above: Order Comment: Speci men Type: BLOOD SPECIMENOrdering Facility: [facility] Address: [address] [place] [address] Performed By: #### 6 00-7 #### [facility] CLIA [id number] 1 [place] [address] [place] Creatinine [Mass/Vol] 0.80 mg/dL Normal 0.73-1.22 [facility] Comment on above: Order Comment: Speci men Type: BLOOD SPECIMENOrdering Facility: [facility] Address: [address] [place] [address] Performed By: #### 6 00-7 #### [facility] CLIA [id number] 1 [place] [address] [place] Creatinine and Glomerular filtration rate.predicted panel (S/P/Bld) 98 mL/min/1.73m??? Normal >=60 [facility] Comment on above: Order Comment: Wilbert torres Type: BLOOD SPECIMENOrdering Facility: [facility] Address: [address] [place] [address] Result Comment: Lala mated Glomerular Filtration Rate [...] GFR. Performed By: #### 6 00-7 #### [facility] CLIA [id number] 1 [place] [address] [place] Glucose [Mass/Vol] 80 mg/dL Normal 74-99 [facility] Comment on above: Order Comment: Speci brian Type: BLOOD SPECIMENOrdering Facility: [facility] Address: [address] [place] [address] Result Comment: The [place] Diabetes Association (ADA) provides guidance for cutoff [...] Standards of Medical Care in Diabetes 2016, [place] [employer]. Diabetes Care. 2016.39(Suppl 1). Performed By: #### 6 00-7 #### [facility] CLIA [id number] 1 [place] [address] [place] Potassium [Moles/Vol] 4.5 mmol/L Normal 3.7-5.1 [facility] Comment on above: Order Comment: Speci men Type: BLOOD SPECIMENOrdering Facility: [facility] Address: [address] [place] [address] Performed By: #### 6 00-7 #### [facility] CLIA [id number] [address] STATES OF [facility] Protein [Mass/Vol] 7.1 g/dL Normal 6.3-8.0 [facility] Comment on above: Order Comment: Speci men Type: BLOOD SPECIMENOrdering Facility: [facility] Address: [address] [place] [address] Performed By: #### 6 00-7 #### [facility] CLIA [id number] [address] STATES OF [facility] Sodium [Moles/Vol] 127 mmol/L Low 136-144 [facility] Comment on above: Order Comment: Speci men Type: BLOOD SPECIMENOrdering Facility: [facility] Address: [address] [place] [address] Performed By: #### 6 00-7 #### [facility] CLIA [id number] [address] [place] Urea nitrogen [Mass/Vol] 4 mg/dL Low 9-24 [facility] Comment on above: Order Comment: Speci men Type: BLOOD SPECIMENOrdering Facility: [facility] Address: [address] [place] [address] Performed By: #### 6 00-7 #### [facility] CLIA [id number] [address] [place] ECG COMPLETEon 07-14-2024 ECG COMPLETE Ventricular Rate : 6 7 BPM Atrial Rate : 67 BPM P-R Interval : 146 ms QRS Duration : 122 ms Q-T Interval : 440 ms QTC Calculation(Bazett) : 464 ms Calculated P [place] : -5 degrees Calculated R [place] : 64 degrees Calculated T [place] : 30 degrees NORMAL SINUS RHYTHM RIGHT BUNDLE BRANCH BLOCK ABNORMAL ECG WHEN COMPARED WITH ECG OF 01-Dec-2023 09:50, PREMATURE SUPRAVENTRICULAR COMPLEXES ARE NO LONGER PRESENT Confirmed by MD SONDRA, ZENAB ([id number]) on 07/18/2024 3:09:52 PM NAME : ELIS BILLS PID : [id number] : 1960 Gender : Male Race : ORD : [id number] Procedure Date : Jul 14 2024 13:13:32 Edit Date : Jul 18 2024 15:09:55 Diagnosis: NORMAL SINUS RHYTHM RIGHT BUNDLE BRANCH BLOCK ABNORMAL ECG WHEN COMPARED WITH ECG OF 01-Dec-2023 09:50, PREMATURE SUPRAVENTRICULAR COMPLEXES ARE NO LONGER PRESENT Confirmed by MD AMARO ZENAB ([id number]) on 07/18/2024 3:09:52 PM Test Reason : HCS Location : 147 : HWwT Overread By : MD AMARO ZENAB Edited By : MD AMARO ZENAB Referred By : Viktor Acquired by : HARVEY PURVIS [facility] HISTORY PHYSICALon HISTORY PHYSICAL HNO ID: [id number] Author: HARVEY PURVIS APRN.PRODUCTION MACHINE SHOP SUPERVISOR Service: ? Author Type: Nurse Practitioner Type: [...] at this time: primary care/internal medicine (in [facility]). Planned Anesthetic: general The Following Tests/Procedures Have Been Initiated: Orders Placed This Encounter Confirm Blood Type Standing Status: Future Number of Occurrences: 1 Standing Expiration Date: 10/13/2024 Order Specific Question: Did Blood Bank direct you to place this order: Answer: No - Presurgical Workflow ContaAzul 160-9-4.8 mcg/actuation HFA aerosol inhaler Sig: INHALE [...] and tobacc (more content not included)... Normal [facility] PT panel Coag (PPP)on 2023 INR Coag (PPP) [Relative time] 1.0 {INR} Normal 0.9-1.3 [facility] Comment on above: Order Comment: Speci men Type: BLOOD SPECIMENOrdering Facility: [facility] Address: [address] [place] [address] Result Comment: Malini min K Antagonist (VKA) Therapeutic Range: INR 2 to 3 (Target INR of 2.5) Note: For patients treated with VKA drugs, such as warfarin, the [place] [employer] 2012 Guideline recommends [...] Chest 2012, 141:7S-47S Deon PUTNAM et al. [facility] 2017, 70: 252-289 Performed By: #### 3 4528-0, 08318-1 ####[facility] [id number] [place] [address] [place] PT Coag (PPP) [Time] 10.4 s Normal <13.1 [facility] Comment on above: Order Comment: Speci men Type: BLOOD SPECIMENOrdering Facility: [facility] Address: [address] [place] [address] Performed By: #### 3 4528-0, 31472-7 ####[facility] LABCL[facility] [id number] [place] [address] [facility] [place] STAPHYLOCOCCUS AUREUS AND MR SA SCREEN, PCR, NASALon 07-14-2024 S. aureus and MRSA panel YADIRA+probe (Nose) Not detected Normal Not Detected [facility] Comment on above: Order Comment: Speci men Type: SWABOrdering Facility: [facility] Address: [address] [place] [address] Performed By: #### S APCR ####[facility]ORYCLIA [id number] [address] OF [facility] TYPE AND SCREEN,30 DAYon ABO O Normal [facility] Comment on above: Order Comment: Speci men Type: BLOOD SPECIMEN [facility] Address: [address] [place] [address] Performed By: #### T SCR30 #### [facility] CLIA [id number] [address] OF [facility] Rh Nom (Bld) Positive Normal [facility] Comment on above: Order Comment: Speci men Type: BLOOD SPECIMEN [facility] Address: [address] [place] [address] Performed By: #### T SCR30 #### [facility] CLIA [id number] [address] Urinalysis complete panel (U )on 07-14-2024 Bilirubin Ql (U) Negative Normal Negative [facility] Comment on above: Order Comment: Speci men Type: URINE SPECIMENOrdering Facility: [facility] Address: [address] [place] [address] Performed By: #### 2 4356-8 ####[facility]ORYCLIA [id number] [address] [place] Clarity (Unsp spec) Clear Normal Clear [facility] Comment on above: Order Comment: Speci men Type: URINE SPECIMENOrdering Facility: [facility] Address: [address] [place] [address] Performed By: #### 2 4356-8 ####[facility]ORYCLIA [id number] [address] [place] Color (U) Colorless Normal yellow [facility] Comment on above: Order Comment: Speci men Type: URINE SPECIMENOrdering Facility: [facility] Address: [address] [place] [address] Performed By: #### 2 4356-8 ####[facility]ORYCLIA [id number] [address] [place] Glucose Test strip (U) [Mass/Vol] Negative Normal Trace, Negative [facility] Comment on above: Order Comment: Speci men Type: URINE SPECIMENOrdering Facility: [facility] Address: [address] [place] [address] Performed By: #### 2 4356-8 ####[facility]ORYCLIA [id number] [place] [address] [place] Hemoglobin Ql (U) Negative Normal Negative, Trace [facility] Comment on above: Order Comment: Speci men Type: URINE SPECIMENOrdering Facility: [facility] Address: [address] [place] [address] Performed By: #### 2 4356-8 ####[facility] [id number] [address] [place] Ketones Ql (U) Negative Normal Negative, Trace [facility] Comment on above: Order Comment: Speci men Type: URINE SPECIMENOrdering Facility: [facility] Address: [address] [place] [address] Performed By: #### 2 4356-8 ####[facility]ORYCLIA [id number] [address] Leukocyte esterase Test strip Ql (U) Negative Normal Negative, 25 Seun/uL [facility] Comment on above: Order Comment: Speci men Type: URINE SPECIMENOrdering Facility: [facility] Address: [address] [place] [address] Performed By: #### 2 4356-8 ####[facility]ORYCLIA [id number] [address] [place] Nitrite Ql (U) Negative Normal Negative [facility] Comment on above: Order Comment: Speci men Type: URINE SPECIMENOrdering Facility: [facility] Address: [address] [place] [address] Performed By: #### 2 4356-8 ####[facility]ORYCLIA [id number] [address] [place] pH (U) 6.5 [pH] Normal 5.0-8.0 [facility] Comment on above: Order Comment: Speci men Type: URINE SPECIMENOrdering Facility: [facility] Address: [address] [place] [address] Performed By: #### 2 4356-8 ####[facility]ORYCLIA [id number] [address] Protein (U) [Mass/Vol] Negative Normal Trace, Negative [facility] Comment on above: Order Comment: Speci men Type: URINE SPECIMENOrdering Facility: [facility] Address: [address] [place] [address] Performed By: #### 2 4356-8 ####[facility]ORYCLIA [id number] [address] RBC LM.HPF (Urine sed) [#/Area] 0-3 /HPF Normal 0-3 /HPF [facility] Comment on above: Order Comment: Speci men Type: URINE SPECIMENOrdering Facility: [facility] Address: [address] [place] [address] Performed By: #### 2 4356-8 ####[facility]ORYCLIA [id number] [address] Specific gravity (U) [Rel density] 1.004 Low 1.005-1.030 [facility] Comment on above: Order Comment: Speci men Type: URINE SPECIMENOrdering Facility: [facility] Address: [address] [place] [address] Performed By: #### 2 4356-8 ####[facility]ORYCLIA [id number] [address] Urobilinogen Ql (U) Normal Normal Normal [facility] Comment on above: Order Comment: Speci men Type: URINE SPECIMENOrdering Facility: [facility] Address: [address] [place] [address] Performed By: #### 2 4356-8 ####[facility]CL[facility] [id number] [address] [place] WBC LM.HPF (Urine sed) [#/Area] 0-5 /HPF Normal 0-5 /HPF [facility] Comment on above: Order Comment: Speci men Type: URINE SPECIMENOrdering Facility: [facility] Address: [address] [place] [address] Performed By: #### 2 4356-8 ####[facility]ORYCLIA [id number] [address] [place] XR CHEST 2V FRONTAL/LATon [...] tissues: Unremarkable. IMPRESSION: No acute radiographic abnormality. Vp Legal Affairs: YAIR Transcribe Date/Time: Jul 18 2024 4:45P Dictated by : SUNITA SMITH MD This examination was interpreted and the report reviewed and electronically signed by: SUNITA SMITH MD on Jul 18 2024 4:46PM EST [id number] N Normal [facility] aPTT PPPon 07-14-2024 aPTT Coag (PPP) [Time] 26.5 s Normal 23.0-32.4 [facility] Comment on above: Order Comment: Speci men Type: BLOOD SPECIMENOrdering Facility: [facility] Address: [address] [place] [address] Performed By: #### 3 4528-0, 58785-9 ####[facility] LABCLIA [id number] [place] [id number] [facility] [place] CNPKrissy 06-21-2024 CNPN Telephone ([facility]) ELIS BILLS ([id number]) 1960 M Date Time Provider Department 06/21/24 [...] Encounter Status:Closed by STEPHANE BAZAN on 06/21/24 [facility] Donna 06-08-2024 CNPN Telephone ([facility]) ELIS BILLS ([id number]) 1960 M Date Time Provider Department 06/08/24 SHELTON AGUILERA [facility] During your visit today, we recorded the following information about you: Dalia Segura 06/08/2024 12:19 PM Signed Nebulizer orders signed AND faxed back to [facility]. Dalia Segura Allergies As of Date: 06/08/2024 [...] Status:Closed by DALIA SEGURA on 06/08/24 Normal [facility] CT CHEST WO IVCONon 06-08-20 CT CHEST WO IVCON * * *Final Report* * * DATE OF EXAM: Jun 08 2024 8:30AM [facility] 0541 - CT CHEST WO IVCON / [...] fellow represents my interpretation of the study. Vp Legal Affairs: YAIR Transcribe Date/Time: Jun 08 2024 1:33P Dictated by : TAMEKA PIKE, DO This examination was interpreted and the report reviewed and electronically signed by: JAYMIE VALLEJO MD on Jun 08 2024 2:39PM EST [id number] N Normal [facility] CT Chest WO contraston 06-08 IMPRESSION: Multiple tiny 2-3 millimeter pulmonary nodules are present, overall decreased in conspicuity and size from the prior, likely resolving infectious/inflammato ry process. Recommend continued attention on follow-up in 6-12 months. I agree that this report by the resident or fellow represents my interpretation of the study. Vp Legal Affairs: YAIR Transcribe Date/Time: Jun 08 2024 1:33P Dictated by : TAMEKA PIKE DO This examination was interpreted and the report reviewed and electronically signed by: JAYMIE VALLEJO MD on Jun 08 2024 2:39PM [facility] DIVISION OF RADIOLOGY * * *Final Report* * * DATE OF EXAM: Jun 08 2024 8:30AM [facility] 0541 - CT CHEST WO IVCON / [...] Bilateral hip arthroplasties. DIVISION OF RADIOLOGY Provider, [facility] - 06/08/2024 * * *Final Report* * * DATE OF EXAM: Jun 08 2024 8:30AM [facility] 0541 - CT CHEST WO IVCON / [...] fellow represents my interpretation of the study. Vp Legal Affairs: YAIR Transcribe Date/Time: Jun 08 2024 1:33P Dictated by : TAMEKA PIKE, DO This examination was interpreted and the report reviewed and electronically signed by: JAYMIE VALLEJO MD on Jun 08 2024 2:39PM EST [facility] Radiology Study observation (narrative) [facility] CT Chest WO contrastOrdered By: Ccf Provider on 06-08-2024 [facility] CNOVon 06-05-2024 CNOV Office Visit (NEAGCLM) ELIS BILLS ([id number]) 1960 M Date Time Provider Department 06/05/24 9:15 AM LOIS KEE NEAGCLM During your visit today, we recorded the following information about you: Pulse Respiration Blood pressure Weight 72/minute 20/minute 161/84 129.5 kg Lois Kee MD 06/05/2024 10:19 AM Signed NEUROSURGERY FOLLOW UP OFFICE NOTE Lois Kee MD [facility] Date of visit: June 05, 2024 Patient Name: Mr.Donald Tim Bills Date of : 1960 Current Age: [age] year old Sex: male MRN/E# [id number] Last Office Visit: 04/06/2024 Chief Complaint: Patient [...] Eyes: Neg (more content not included)... Normal [facility] XR LUMBAR 4V AP/LAT/ [...] anterolisthesis at L5-S1. Degenerative changes as described. Vp Legal Affairs: PSCB Transcribe Date/Time: Jun 08 2024 9:34A Dictated by : GOLD LUTHER MD This examination was interpreted and the report reviewed and electronically signed by: GOLD LUTHER MD on Jun 08 2024 9:42AM EST [id number] N [facility] 05-31-2024 [facility] Telephone ([facility]) ELIS BILLS ([id number]) 1960 M Date Time Provider Department 05/31/24 SHELTON AGUILERA [facility] During your visit today, we recorded the following information about you: Dalia Segura 05/31/2024 12:24 PM Signed Nebul[facility] Dal[facility] Segura Allergies As of Date: 05/31/2024 [...] on 05/31/24 [facility] Donna 04-27-2024 NABORN Telephone (AGSPHWG) ELIS BILLS ([id number]) 1960 M Date Time Provider Department 04/27/24 [...] Date Reviewed: 04/27/2024 Reviewed by: Bertha Schumacher APRN.PRODUCTION MACHINE SHOP SUPERVISOR - Fully Assessed Reason for Visit: Appointment [...] Encounter Status:Closed by VIVIAN FRIED on 04/28/24 [facility] CNOVon 04-06-2024 CNOV Office Visit (NEAGCLM) ELIS BILLS ([id number]) 1960 M Date Time Provider Department 04/06/24 9:30 AM LOIS KEE NEAGCLM During your visit today, we recorded the following information about you: Pulse Respiration Blood pressure Weight 74/minute 18/minute 154/89 128.5 kg Height 1.702 m Lois Kee MD 04/06/2024 10:06 AM Signed NEUROSURGERY CONSULT NOTE Lois Kee MD [facility] Date of visit: April 06, 2024 Patient Name: Mr.Donald Tim Bills Date of : 1960 Current Age: [age] year old Sex: male MRN/E# [id number] Last Office Visit: Visit date not found [...] (chronic obstructive pulmonary disease) (HCC) Hypercholesteremia Stroke ([facility]) No past surgical history on [...] SpO2 9 (more content not included)... Normal [facility] [place] [facility]2024 [facility] Telephone (AGSPINE1) ELIS BILLS ([id number]) 1960 Date Time Provider Department 03/31/24 DHIRAJ [...] No 9. Does this procedure require a company truck driver? Yes If yes, has patient been notified that a company truck driver is needed and must be present [...] Date Reviewed: 03/30/2024 Reviewed by: Bertha Schumacher APRN.PRODUCTION MACHINE SHOP SUPERVISOR - Fully Assessed Reason for Visit: injection [...] Encounter Status:Closed by OZIEL RUBALCAVA on 03/31/24 [facility] 03-30-2024 [facility] Telephone (SPAGWO) ELIS BILLS ([id number]) 1960 M Date Time Provider Department 03/30/24 DHIRAJ HERR [facility] During your visit today, we recorded the following information about you: Oziel Rubalcava 03/31/2024 8:20 AM Addendum B/L MBNB L3-L4, L4-L5, w fluoro Called pt to schedule procedure, LVM Oziel Rosio Allergies As of Date: 03/30/2024 Noted Allergy Reaction PENICILLINS 08/27/2014 16 - Unknown Date Reviewed: 03/30/2024 Reviewed by: Bertha Schumacher APRN.PRODUCTION MACHINE SHOP SUPERVISOR - Fully Assessed Reason for Visit: Appointment [...] Encounter Status:Closed by OZIEL RUBALCAVA on 03/30/24 [facility] 03-17-2024 CNPN Telephone (AGSPHWG) ELIS BILLS ([id number]) 1960 M Date Time Provider Department 03/17/24 [...] Encounter Status:Closed by STEPHAN PACHECO on 03/17/24 [facility] 03-16-2024 [facility] Telephone (SPAGWO) ELIS BILLS ([id number]) 1960 M Date Time Provider Department 03/16/24 BERTHA SCHUMACHER During your visit today, we recorded the following information about you: Bertha Schumacher APRN.CNP 03/16/2024 8:14 AM Signed Could you proof read this please. Thanks. Allergies As of Date: 03/16/2024 Noted Allergy Reaction PENICILLINS 08/27/2014 16 - Unknown Date Reviewed: 02/24/2024 Reviewed by: Bertha Schumacher APRN.[facility] - Fully Assessed Reason for Visit: Orders [...] Encounter Status:Closed by BERTHA SCHUMACHER on 03/16/24 [facility] Donna 03-15-2024 NABORN Telephone (AGSPINE3) ELIS BILLS ([id number]) 1960 M Date Time Provider Department 03/15/24 [...] with this appt. Was Patient Referred to [facility]/Seek Emergency Treatment (Y/N): n Did Patient Agree (Y/N): n Was An Attempt Made To Transfer The Patient To The Office (Y/N): n Were You Able To Reach Someone At The Office (Y/N): n If Yes - Patient Was Transferred To (Caregivers Name): n If No - Which [facility] Leadership Inspector Motor Vehicles Did You Speak With Regarding This Patient: n Was an appointment scheduled (Y/N): n/a Reason patient was requesting visit (RFV/signs and symptoms/diagnosis) : procedure Person calling if other than patient: Spouse, Mehreen Bills Return call to if other than patient: y Best contact number: [phone] Thank you, Johnny Hdez March 14, 2024 [...] Date Reviewed: 02/24/2024 Reviewed by: Bertha Schumacher APRN.PRODUCTION MACHINE SHOP SUPERVISOR - Fully Assessed Reason for Visit: Patient Question [2398] Prescriptions as of 03/15/2024 - cyclobenzaprine (FLEXERIL) [...] Encounter Status:Closed by CHANDA ARREGUIN on 03/15/24 [facility] Donna [facility] DIMITRIOS BILLSGILBERTO Dumont ([id number]) 1960 M Date Time Provider Department 03/13/24 [...] Information Insurance Name MM Patient's Insurance Case# [id number] Ordering Provider Bertha Schumacher Approved Services N/A Denied Services 12730 - NJX DX/THER SBST INTRLMNR LMBR/SAC W/IMG GDN Alternative Recommendation N/A *Service which can be approved in place of denied service. Clinical Documentation Provided Office Visit 11/11/2023, 09/23/2023 [facility] 02/24/2024, 12/22/2023, 11/25/2023, 10/29/2023 Procedure 12/16/2023, 10/28/2023 CT CHEST WO IVCON 12/29/2023 XR CHEST 1V FRONTAL 12/01/2023 MRI LUMBAR SPINE WO IVCON 11/19/2023 CT CHEST WO IVCON 09/02/2023 Peer to Peer Instructions Peer to Peer , options: 1-2 Does Peer to Peer need to be scheduled? Yes Who can complete the Peer to Peer? Dr, PA, FURNITURE TECHNICIAN, LN Additional Peer to Peer Instructions You can call for the peer to peer at the date and time of your convenience Appeal Instructions Appeal Address [address] [address], [facility], [address] Appeal Fax# No fax# available Required Form(s) Yes, Please see attached or can be found at [email or web address] ([employer]). Additional Appeal Instructions Send it attention to: Appeals department. Include: coversheet with patient's and case information, a formal appeal letter and attach any pertinent supporting clinical documentation. Also, insurance requires a formal appeal form filled out if you would like to submit a written appeal. Facility Information Location [facility] [id number] Tax ID# [id number] Vivian Fried 03/14/2024 8:34 AM Signed Please advise on how you would like to proceed. Vivian Franco 03/14/2024 3:59 PM Signed I have attempted to contact this patient by phone, Left brief message on cell [employer] informing this patient of this denial and [...] Date Reviewed: 02/24/2024 Reviewed by: Bertha Schumacher APRN.PRODUCTION MACHINE SHOP SUPERVISOR - Fully Assessed Reason for Visit: Insurance [...] thiamine (VITAMI (more content not included)... Normal [facility] CNCOon 03-01-2024 CNCO Letter Text Normal [facility] CNCOon 02-25-2024 CNCO Letter Text Normal [facility] CNPNon 02-25-2024 CNPN Telephone (AGSPINE3) ELIS BILLS ([id number]) 1960 Date Time Provider Department 02/25/24 EVERTON DECKER AGSPINE3 During your visit today, we recorded the following information about you: Diane Lagos 02/25/2024 11:09 AM Signed The Anticoag Management letter has been sent to the PCP, Pilar Steele DO via facsimile. [phone] Adi Meyer PSS 02/29/2024 3:44 PM Signed Medical consent to stop taking Plavix for [address] Pilar Steele on 02/28/2024. The consent form was received on 02/29/2024 and is scanned into the chart. GOOD UNTIL 08/30/2024 Adi Mascorro [place] to Dr. Britton Burgos [facility] P: [id number] / F: [phone] / __ Diane Lagos 03/01/2024 11:05 AM Signed Called and LVM to schedule injection. Diane Lagos Vivian Fried 03/01/2024 11:55 AM Signed Patient has been scheduled with dr. Decker on 03/16/24. Vivian Fried Allergies As of Date: 02/25/2024 Noted Allergy Reaction PENICILLINS 08/27/2014 16 - Unknown Date Reviewed: 02/24/2024 Reviewed by: Bertha Schumacher APRN.PRODUCTION MACHINE SHOP SUPERVISOR - Fully Assessed Reason for Visit: anticoagulation [...] Encounter Status:Closed by DIANE LAGOS on 02/25/24 [facility] CNPN Telephone (AGSPHWG) ELIS BILLS ([id number]) 1960 Date Time Provider Department 02/25/24 BERTHA SCHUMACHER AGSPHWG During your visit today, we recorded the following information about you: Rose Leal 02/25/2024 8:17 AM Signed Outbound Call to patient to schedule Injection - Epidural Steroid Injection - Interlaminar Approach (ILESI) under fluoroscopic guidance NONE at L4-5 (Currently Taking: Plavix needs 7 day hold) - Reached [facility] [phone] (cell/home) JASS Block Julie 03/03/2024 7:44 AM Signed Patient is scheduled for procedure and follow up JASS Block Allergies As of Date: 02/25/2024 Noted Allergy Reaction PENICILLINS 08/27/2014 16 - Unknown Date Reviewed: 02/24/2024 Reviewed by: Bertha Schumacher APRN.PRODUCTION MACHINE SHOP SUPERVISOR - Fully Assessed Reason for Visit: Appointment [...] Encounter Status:Closed by ROSE LEAL on 02/25/24 [facility] CNPN Telephone (AGSPINE3) ELIS BILLS ([id number]) 1960 Date Time Provider Department 02/25/24 EVERTON [...] No 9. Does this procedure require a company truck driver? Yes If yes, has patient been notified that a company truck driver is needed and must be present [...] Date Reviewed: 02/24/2024 Reviewed by: Bertha Schumacher APRN.PRODUCTION MACHINE SHOP SUPERVISOR - Fully Assessed Reason for Visit: Injections [...] Encounter Status:Closed by DIANE LAGOS on 02/25/24 [facility] Donna 01-17-2024 CNPN Telephone (PUMBHT) ELIS BILLS ([id number]) 1960 Chip Date Time Provider Department 01/17/24 SHELTON AGUILERA During your visit today, we recorded the following information about you: Lindsey Delgado RN 01/17/2024 10:03 AM Signed TIMO: 11/11/2023 Future OV: 02/10/2024 Call transferred to [place] RN from [address] center. Mehreen, patient's called. Patient name [...] Date Reviewed: 12/21/2023 Reviewed by: Yashira Gonsales APRN.PRODUCTION MACHINE SHOP SUPERVISOR - Fully Assessed Reason for Visit: Illness [8423] Cmt: [place] RN covering urgent pulm sypmtom calls Order(s):predniSONE [...] of breath (more content not included)... Normal [facility] 01-03-2024 [facility] Telephone ([facility]) ELIS BILLS ([id number]) 1960 M Date Time Provider Department 01/03/24 ALEN MAYORGA [facility] During your visit today, we recorded [...] was unable to speak with patient. Sent [employer] message regarding message below. Alen Mayorga MD15 [...] Date Reviewed: 12/21/2023 Reviewed by: Yashira Gonsales APRN.PRODUCTION MACHINE SHOP SUPERVISOR - Fully Assessed Reason for Visit: Results [...] Status:Closed by ALEN MAYORGA on 01/03/24 Normal [facility] CT CHEST WO IVCONon 12-29-19 CT CHEST WO IVCON * * *Final Report* * * DATE OF EXAM: Dec 29 2023 11:14AM [facility] 0541 - CT CHEST WO IVCON [...] obtained in 12 months --END OF FINDING-- Vp Legal Affairs: YAIR Transcribe Date/Time: Jan 03 2024 2:32P Dictated by : FRANCES MILIAN MD This examination was interpreted and the report reviewed and electronically signed by: FRANCES MILIAN MD on Jan 03 2024 2:47PM EST [id number] ACTIONABLE Invalid Interpretation Code [facility] ECHOon 12-29-2023 CONCLUSIONS: - [...] [facility] Echocardiography Report: Transthoracic Echo [facility] Date of service: 12/29/2023 10:25:10 AM Ordering [...] aorta 4.0 cm. [facility] Echocardiography Echocardiography Report: Transthoracic Echo [facility] Date of service: 12/29/2023 10:25:10 AM Ordering physician: SHELTON AGUILERA Indication: Shortness of Breath Technologist: Hannah Elizondo [facility] Interpreting physician: Al Dexter MD PATIENT: [...] * * Final * * * CC [employer] Medical Image : [id number] [facility] CNPNon 12-17-2023 [facility] Telephone (AGSPHWG) ELIS BILLS ([id number]) 1960 M Date Time Provider Department 12/17/23 [...] Encounter Status:Closed by GRETA GUILLEN on 12/17/23 [facility] Donna 12-14-2023 [facility] Telephone (AGSPINE3) ELIS BILLS ([id number]) 1960 M Date Time Provider Department 12/14/23 BERTHA SCHUMACHER AGSPINE3 During your visit today, we recorded the following information about you: hCanda Arreguin 12/14/2023 4:10 PM Signed Patient Last [...] Information Insurance Name MMO Patient's Insurance Case# [id number] Ordering Provider Bertha Schumacher Approved Services N/A Denied Services 78028 - NJX DX/THER AGT PVRT FACET JT LMBR/SAC 1 LEVEL 77216 - NJX DX/THER AGT PVRT FACET JT LMBR/SAC 2ND LEVEL Alternative Recommendation N/A *Service which can be approved in place of denied service. Clinical Documentation Provided [facility] 11/25/2023, 10/29/2023 FOLLOW UP APPOITNMENT WHEN PROVIDED SPECIFIED 12/02/2023 XR CHEST 1V FRONTAL 12/01/2023 MRI LUMBAR SPINE WO IVCON 11/19/2023 Peer to Peer Instructions Peer to Peer , options: 1-2 Does Peer to Peer need to be scheduled? Yes Who can complete the Peer to Peer? Dr, PA, FURNITURE TECHNICIAN, LN Additional Peer to Peer Instructions You can call for the peer to peer at the date and time of your convenience Appeal Instructions Appeal Address [address] [address], [facility], [address] Appeal Fax# No fax# available Required Form(s) Yes, Please see attached or can be found at [email or web address] ([employer]). Additional Appeal Instructions Send it attention to: Appeals department. Include: coversheet with patient's and case information, a formal appeal letter and attach any pertinent supporting clinical documentation. Also, insurance requires a formal appeal form filled out if you would like to submit a written appeal. Facility Information Location [facility] [id number] Tax ID# [id number] Vivian Fried 12/15/2023 12:08 PM Signed Please [...] that we are looking for. Bertha Alcantara APRN.PRODUCTION MACHINE SHOP SUPERVISOR 12/24/2023 3:44 PM Signed I created a [...] available, please see details below: Appeal fax#: [phone] Appeal mailing address: [address] [address], [facility], [address] Time frame limit: 60 calendar days from 01/04/2024 Attention to: Appeals dep (more content not included)... Normal [facility] CBC panel Auto (Bld)on 12-01 Erythrocyte distribution width (RBC) [Ratio] 14.2 % Normal 11.5-15.0 [facility] Comment on above: Order Comment: Speci brian Type: BLOOD SPECIMENOrdering Facility: [facility] Address: [address] [place] [address] Performed By: #### 5 8410-2 ####[facility] LABCLIA [id number] [place] [address] [place] Hematocrit (Bld) [Volume fraction] 41.8 % Normal 39.0-51.0 [facility] Comment on above: Order Comment: Wilbert torres Type: BLOOD SPECIMENOrdering Facility: [facility] Address: [address] [place] [address] Performed By: #### 5 8410-2 ####[facility] LABCLIA [id number] [place] [address] [place] Hemoglobin (Bld) [Mass/Vol] 14.0 g/dL Normal 13.0-17.0 [facility] Comment on above: Order Comment: Wilbert torres Type: BLOOD SPECIMENOrdering Facility: [facility] Address: [address] [place] [address] Performed By: #### 5 8410-2 ####[facility] LABCLIA [id number] [place] [address] [facility] MCH (RBC) [Entitic mass] 29.4 pg Normal 26.0-34.0 [facility] Comment on above: Order Comment: Speci men Type: BLOOD SPECIMENOrdering Facility: [facility] Address: [address] [place] [address] Performed By: #### 5 8410-2 ####[facility] LABCLIA [id number] [place] [address] [place] MCHC (RBC) [Mass/Vol] 33.5 g/dL Normal 30.5-36.0 [facility] Comment on above: Order Comment: Speci men Type: BLOOD SPECIMENOrdering Facility: [facility] Address: [address] [place] [address] Performed By: #### 5 8410-2 ####[facility] LABCLIA [id number] [place] [address] [facility] [place] MCV (RBC) [Entitic vol] 87.8 fL Normal 80.0-100.0 [facility] Comment on above: Order Comment: Speci men Type: BLOOD SPECIMENOrdering Facility: [facility] Address: [address] [place] [address] Performed By: #### 5 8410-2 ####[facility] LABCLIA [id number] [place] [address] [place] Platelet mean volume (Bld) [Entitic vol] 9.1 fL Normal 9.0-12.7 [facility] Comment on above: Order Comment: Speci men Type: BLOOD SPECIMENOrdering Facility: [facility] Address: [address] [place] [address] Performed By: #### 5 8410-2 ####[facility] LABCLIA [id number] [place] [address] [facility] Platelets (Bld) [#/Vol] 298 10*3/uL Normal 150-400 [facility] Comment on above: Order Comment: Speci men Type: BLOOD SPECIMENOrdering Facility: [facility] Address: [address] [id number] Performed By: #### 5 8410-2 ####[facility] LABCLIA [id number] [place] [address] [facility] RBC (Bld) [#/Vol] 4.76 10*6/uL Normal 4.20-6.00 [facility] Comment on above: Order Comment: Speci men Type: BLOOD SPECIMENOrdering Facility: [facility] Address: [address] [place], [place] [address] Performed By: #### 5 8410-2 ####[facility] LABCLIA [id number] [place] [address] [facility] WBC (Bld) [#/Vol] 7.31 10*3/uL Normal 3.70-11.00 [facility] Comment on above: Order Comment: Wilbert torres Type: BLOOD SPECIMENOrdering Facility: [facility] Address: [address] [place], [place] [address] Performed By: #### 5 8410-2 ####[facility] LABCLIA [id number] [place] [address] [facility] CNDSon 12-02-2023 CNDS HNO ID: [id number] Author: ALBERTINA DAVILA APRN.PRODUCTION MACHINE SHOP SUPERVISOR Service: Hospital Medicine Author Type: Nurse Practitioner Type: Discharge Summary Filed: 12/02/2023 11:00 Note Text: Attestation signed by Ji Fonseca MD at 12/10/2023 9:28 PM [facility] [place] STAFF PHYSICIAN NOTE OF PERSONAL INVOLVEMENT IN [...] exacerbation (HCC) (POA: Yes) Ji Fonseca MD, [facility] Staff,Dept of Hospital Medicine December 10, 2023 [...] 12 hours. 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 [...] agreeable to observation overnight, but only at [facility] Patient was admitted for further management. - [...] were finalized. He reports he will follow the medical centert and report the results to his PCP. Extreme education provided to patient on ETOH cessation and smoking cessation. Patient instructed on Fluid restriction of 1800mL daily (more content not included)... Normal [facility] Comprehensive metabolic 2000 panelon 12-02-2023 Albumin [Mass/Vol] 4.4 g/dL Normal 3.9-4.9 [facility] Comment on above: Order Comment: Speci men Type: BLOOD SPECIMENOrdering Facility: [facility] Address: [address] [place] [address] Performed By: #### 6 00-7 #### [facility] CLIA [id number] [address] OF [facility] ALP [Catalytic activity/Vol] 99 U/L Normal 38-113 [facility] Comment on above: Order Comment: Speci men Type: BLOOD SPECIMENOrdering Facility: [facility] Address: [address] [place] [address] Performed By: #### 6 00-7 #### [facility] CLIA [id number] [address] OF [facility] ALT With P-5'-P [Catalytic activity/Vol] 22 U/L Normal 10-54 [facility] Comment on above: Order Comment: Speci men Type: BLOOD SPECIMENOrdering Facility: [facility] Address: [address] [place] [address] Performed By: #### 6 00-7 #### [facility] CLIA [id number] [address] STATES OF [facility] Anion gap [Moles/Vol] 12 mmol/L Normal 9-18 [facility] Comment on above: Order Comment: Speci men Type: BLOOD SPECIMENOrdering Facility: [facility] Address: [address] [place] [address] Performed By: #### 6 00-7 #### [facility] CLIA [id number] [address] [place] With P-5'-P [Catalytic activity/Vol] 19 U/L Normal 14-40 [facility] Comment on above: Order Comment: Speci men Type: BLOOD SPECIMENOrdering Facility: [facility] Address: [address] [place] [address] Performed By: #### 6 -7 #### [facility] CLIA [id number] [address] [place] Bilirubin [Mass/Vol] 0.5 mg/dL Normal 0.2-1.3 [facility] Comment on above: Order Comment: Speci men Type: BLOOD SPECIMENOrdering Facility: [facility] Address: [address] [place] [address] Performed By: #### 6 00-7 #### [facility] CLIA [id number] [address] [place] [address] [place] Calcium [Mass/Vol] 9.7 mg/dL Normal 8.5-10.2 [facility] Comment on above: Order Comment: Speci men Type: BLOOD SPECIMENOrdering Facility: [facility] Address: [address] [place] [address] Performed By: #### 6 -7 #### [facility] CLIA [id number] [address] [place] [address] [place] Chloride [Moles/Vol] 92 mmol/L Low 97-105 [facility] Comment on above: Order Comment: Speci men Type: BLOOD SPECIMENOrdering Facility: [facility] Address: [address] [place] [address] Performed By: #### 6 7 #### [facility] CLIA [id number] [address] [place] [address] [place] CO2 [Moles/Vol] 25 mmol/L Normal 22-30 [facility] Comment on above: Order Comment: Speci men Type: BLOOD SPECIMENOrdering Facility: [facility] Address: [address] [place] [address] Performed By: #### 6 00-7 #### [facility] CLIA [id number] 1 [place] [address] [place] Creatinine [Mass/Vol] 0.90 mg/dL Normal 0.73-1.22 [facility] Comment on above: Order Comment: Speci men Type: BLOOD SPECIMENOrdering Facility: [facility] Address: [address] [place] [address] Performed By: #### 6 00-7 #### [facility] CLIA [id number] [address] [place] [address] Creatinine and Glomerular filtration rate.predicted panel (S/P/Bld) 95 mL/min/1.73m??? Normal >=60 [facility] Comment on above: Order Comment: Wilbert men Type: BLOOD SPECIMENOrdering Facility: [facility] Address: [address] [place] [address] Result Comment: Lala mated Glomerular Filtration Rate [...] GFR. Performed By: #### 6 00-7 #### [facility] CLIA [id number] [address] [place] [address] [place] Glucose [Mass/Vol] 122 mg/dL High 74-99 [facility] Comment on above: Order Comment: Wilbert torres Type: BLOOD SPECIMENOrdering Facility: [facility] Address: [address] [place] [address] Result Comment: The [place] Diabetes Association (ADA) provides guidance for cutoff [...] Standards of Medical Care in Diabetes 2016, [place] [employer]. Diabetes Care. 2016.39(Suppl 1). Performed By: #### 6 00-7 #### [facility] CLIA [id number] [address] [place] Potassium [Moles/Vol] 5.0 mmol/L Normal 3.7-5.1 [facility] Comment on above: Order Comment: Speci men Type: BLOOD SPECIMENOrdering Facility: [facility] Address: [address] [place] [address] Performed By: #### 6 00-7 #### [facility] CLIA [id number] 1 [place] [address] [place] Protein [Mass/Vol] 7.7 g/dL Normal 6.3-8.0 [facility] Comment on above: Order Comment: Speci men Type: BLOOD SPECIMENOrdering Facility: [facility] Address: [address] [place] [address] Performed By: #### 6 00-7 #### [facility] CLIA [id number] [address] [place] Sodium [Moles/Vol] 129 mmol/L Low 136-144 [facility] Comment on above: Order Comment: Speci men Type: BLOOD SPECIMENOrdering Facility: [facility] Address: [address] [place] [address] Performed By: #### 6 00-7 #### [facility] CLIA [id number] 1 [place] [address] [place] Urea nitrogen [Mass/Vol] 11 mg/dL Normal 9-24 [facility] Comment on above: Order Comment: Speci men Type: BLOOD SPECIMENOrdering Facility: [facility] Address: [address] [place] [address] Performed By: #### 6 00-7 #### [facility] CLIA [id number] 1 [place] [address] [place] Magnesium SerPl-mCncon 12-01 Magnesium [Mass/Vol] 2.3 mg/dL Normal 1.7-2.3 [facility] Comment on above: Order Comment: Speci men Type: BLOOD SPECIMENOrdering Facility: [facility] Address: [address] [place] [address] Performed By: #### 6 00-7 #### [facility] CLIA [id number] [address] NURSING PROGon 12-02-2023 NURSING PROG HNO ID: [id number] Author: RUBY MOTT, RN Service: ? Author Type: Registered Nurse Type: Nursing Progress Note Filed: 12/02/2023 12:16 Note Text: Discharge instructions printed and explained to pt and spouse. Questions answered. Personal belongings with pt and spouse. Pt discharged via wheelchair. Pt d/c to home with . Normal [facility] TSH SerPl-aCncon 12-02-2023 TSH Qn 1.730 m[IU]/L Normal 0.270-4.200 [facility] Comment on above: Order Comment: Speci men Type: BLOOD SPECIMENOrdering Facility: [facility] Address: [address] [place] [address] Performed By: #### 6 00-7 #### [facility] CLIA [id number] [address] OF [facility] Basic metabolic 2000 panelon 12-01-2023 Anion gap [Moles/Vol] 12 mmol/L Normal 9-18 [facility] Comment on above: Order Comment: Speci men Type: BLOOD SPECIMENOrdering Facility: [facility] Address: [address] [place] [address] Performed By: #### 3 2355-0 #### [facility] CLIA [id number] [address] STATES OF [facility] Calcium [Mass/Vol] 9.0 mg/dL Normal 8.5-10.2 [facility] Comment on above: Order Comment: Speci men Type: BLOOD SPECIMENOrdering Facility: [facility] Address: [address] [place] [address] Performed By: #### 3 2355-0 #### [facility] CLIA [id number] [address] [place] Chloride [Moles/Vol] 87 mmol/L Low 97-105 [facility] Comment on above: Order Comment: Speci men Type: BLOOD SPECIMENOrdering Facility: [facility] Address: [address] [place] [address] Performed By: #### 3 2355-0 #### [facility] CLIA [id number] [address] [place] CO2 [Moles/Vol] 24 mmol/L Normal 22-30 [facility] Comment on above: Order Comment: Speci men Type: BLOOD SPECIMENOrdering Facility: [facility] Address: [address] [place] [address] Performed By: #### 3 2355-0 #### [facility] CLIA [id number] [address] [place] Creatinine [Mass/Vol] 0.88 mg/dL Normal 0.73-1.22 [facility] Comment on above: Order Comment: Speci men Type: BLOOD SPECIMENOrdering Facility: [facility] Address: [address] [place] [address] Performed By: #### 3 2355-0 #### [facility] CLIA [id number] [address] Creatinine and Glomerular filtration rate.predicted panel (S/P/Bld) 96 mL/min/1.73m??? Normal >=60 [facility] Comment on above: Order Comment: Speci men Type: BLOOD SPECIMENOrdering Facility: [facility] Address: [address] [place] [address] Result Comment: Lala mated Glomerular Filtration Rate [...] GFR. Performed By: #### 3 2355-0 #### [facility] CLIA [id number] [address] [place] Glucose [Mass/Vol] 103 mg/dL High 74-99 [facility] Comment on above: Order Comment: Speci men Type: BLOOD SPECIMENOrdering Facility: [facility] Address: [address] [place] [address] Result Comment: The [place] Diabetes Association (ADA) provides guidance for cutoff [...] Standards of Medical Care in Diabetes 2016, [place] [employer]. Diabetes Care. 2016.39(Suppl 1). Performed By: #### 3 2355-0 #### [facility] CLIA [id number] 1 [place] [address] [place] Potassium [Moles/Vol] 4.3 mmol/L Normal 3.7-5.1 [facility] Comment on above: Order Comment: Karthikeyani men Type: BLOOD SPECIMENOrdering Facility: [facility] Address: [address] [place] [address] Performed By: #### 3 2355-0 #### [facility] CLIA [id number] 1 [place] [address] [place] Sodium [Moles/Vol] 123 mmol/L Low 136-144 [facility] Comment on above: Order Comment: Speci men Type: BLOOD SPECIMENOrdering Facility: [facility] Address: [address] [place] [address] Performed By: #### 3 2355-0 #### [facility] CLIA [id number] 1 [place] [address] [place] Urea nitrogen [Mass/Vol] 7 mg/dL Low 9-24 [facility] Comment on above: Order Comment: Speci men Type: BLOOD SPECIMENOrdering Facility: [facility] Address: [address] [place] [address] Performed By: #### 3 2355-0 #### [facility] CLIA [id number] [address] [facility] CBC W Auto Differential pane l (Bld)on 12-01-2023 Basophils (Bld) [#/Vol] 0.06 10*3/uL Normal <0.11 [facility] Comment on above: Order Comment: Speci men Type: BLOOD SPECIMENOrdering Facility: [facility] Address: [address] [place] [address] Performed By: #### 5 7021-8 ####[facility] [id number] [place] [id number] [facility] Basophils/100 WBC (Bld) 0.9 % Normal [facility] Comment on above: Order Comment: Speci men Type: BLOOD SPECIMENOrdering Facility: [facility] Address: [address] [place] [address] Performed By: #### 5 7021-8 ####[facility] [id number] [place] [id number] [facility] Differential cell count method Nom (Bld) Auto Normal [facility] Comment on above: Order Comment: Speci men Type: BLOOD SPECIMENOrdering Facility: [facility] Address: [address] [place] [address] Performed By: #### 5 7021-8 ####[facility] [id number] [place] [address] [place] Eosinophils (Bld) [#/Vol] 0.07 10*3/uL Normal <0.46 [facility] Comment on above: Order Comment: Speci men Type: BLOOD SPECIMENOrdering Facility: [facility] Address: [address] [place] [address] Performed By: #### 5 7021-8 ####[facility] [id number] [place] [address] [facility] [place] Eosinophils/100 WBC (Bld) 1.0 % Normal [facility] Comment on above: Order Comment: Speci men Type: BLOOD SPECIMENOrdering Facility: [facility] Address: [address] [place] [address] Performed By: #### 5 7021-8 ####[facility] [id number] [place] [address] [place] Erythrocyte distribution width (RBC) [Ratio] 14.1 % Normal 11.5-15.0 [facility] Comment on above: Order Comment: Speci men Type: BLOOD SPECIMENOrdering Facility: [facility] Address: [address] [place] [address] Performed By: #### 5 7021-8 ####[facility]IA [id number] [place] [address] [place] Hematocrit (Bld) [Volume fraction] 37.6 % Low 39.0-51.0 [facility] Comment on above: Order Comment: Speci men Type: BLOOD SPECIMENOrdering Facility: [facility] Address: [address] [place] [address] Performed By: #### 5 7021-8 ####[facility] LABCLIA [id number] [place] [address] [place] Hemoglobin (Bld) [Mass/Vol] 13.0 g/dL Normal 13.0-17.0 [facility] Comment on above: Order Comment: Speci men Type: BLOOD SPECIMENOrdering Facility: [facility] Address: [address] [place] [address] Performed By: #### 5 7021-8 ####[facility]IA [id number] [place] [address] [place] Immature granulocytes (Bld) [#/Vol] 0.04 10*3/uL Normal <0.10 [facility] Comment on above: Order Comment: Speci men Type: BLOOD SPECIMENOrdering Facility: [facility] Address: [address] [place] [address] Performed By: #### 5 7021-8 ####[facility] [place] [facility] [id number] [place] [address] [facility] Immature granulocytes/100 WBC (Bld) 0.6 % Normal [facility] Comment on above: Order Comment: Speci men Type: BLOOD SPECIMENOrdering Facility: [facility] Address: [address] [place] [address] Performed By: #### 5 7021-8 ####[facility] [id number] [place] [address] [facility] Lymphocytes (Bld) [#/Vol] 1.24 10*3/uL Normal 1.00-4.00 [facility] Comment on above: Order Comment: Speci men Type: BLOOD SPECIMENOrdering Facility: [facility] Address: [address] [place] [address] Performed By: #### 5 7021-8 ####[facility]IA [id number] [place] [id number] [facility] Lymphocytes/100 WBC (Bld) 18.2 % Normal [facility] Comment on above: Order Comment: Speci men Type: BLOOD SPECIMENOrdering Facility: [facility] Address: [address] [place] [address] Performed By: #### 5 7021-8 ####[facility] [id number] [place] [address] [place] MCH (RBC) [Entitic mass] 29.5 pg Normal 26.0-34.0 [facility] Comment on above: Order Comment: Speci men Type: BLOOD SPECIMENOrdering Facility: [facility] Address: [address] [place] [address] Performed By: #### 5 7021-8 ####[facility] [id number] [place] [address] [place] MCHC (RBC) [Mass/Vol] 34.6 g/dL Normal 30.5-36.0 [facility] Comment on above: Order Comment: Speci men Type: BLOOD SPECIMENOrdering Facility: [facility] Address: [address] [place] [address] Performed By: #### 5 7021-8 ####[facility] [facility]IA [id number] [place] [address] [place] MCV (RBC) [Entitic vol] 85.3 fL Normal 80.0-100.0 [facility] Comment on above: Order Comment: Speci men Type: BLOOD SPECIMENOrdering Facility: [facility] Address: [address] [place] [address] Performed By: #### 5 7021-8 ####[facility] [id number] [place] [address] [place] Monocytes (Bld) [#/Vol] 0.89 10*3/uL High <0.87 [facility] Comment on above: Order Comment: Speci men Type: BLOOD SPECIMENOrdering Facility: [facility] Address: [address] [place] [address] Performed By: #### 5 7021-8 ####[facility] [facility] [id number] [place] [address] [facility] Monocytes/100 WBC (Bld) 13.1 % Normal [facility] Comment on above: Order Comment: Speci men Type: BLOOD SPECIMENOrdering Facility: [facility] Address: [address] [place] [address] Performed By: #### 5 7021-8 ####[facility]CLIA [id number] [place] [address] [place] Neutrophils (Bld) [#/Vol] 4.50 10*3/uL Normal 1.45-7.50 [facility] Comment on above: Order Comment: Speci men Type: BLOOD SPECIMENOrdering Facility: [facility] Address: [address] [place] [address] Performed By: #### 5 7021-8 ####[facility]CLIA [id number] [place] [address] [place] Neutrophils/100 WBC (Bld) 66.2 % Normal [facility] Comment on above: Order Comment: Speci men Type: BLOOD SPECIMENOrdering Facility: [facility] Address: [address] [place] [address] Performed By: #### 5 7021-8 ####[facility] [id number] [place] [facility] [place] [address] [place] Nucleated RBC (Bld) [#/Vol] Normal [facility] Comment on above: Order Comment: Speci men Type: BLOOD SPECIMENOrdering Facility: [facility] Address: [address] [place] [address] Performed By: #### 5 7021-8 ####[facility] [id number] [facility] [place] [address] [facility] [place] Nucleated RBC/100 WBC (Bld) [Ratio] Normal [facility] Comment on above: Order Comment: Speci men Type: BLOOD SPECIMENOrdering Facility: [facility] Address: [address] [place] [address] Performed By: #### 5 7021-8 ####[facility] [id number] [facility] [place] [address] [place] Platelet mean volume (Bld) [Entitic vol] 8.8 fL Low 9.0-12.7 [facility] Comment on above: Order Comment: Speci men Type: BLOOD SPECIMENOrdering Facility: [facility] Address: [address] [place] [address] Performed By: #### 5 7021-8 ####[facility] [id number] [facility] [place] [address] [place] Platelets (Bld) [#/Vol] 242 10*3/uL Normal 150-400 [facility] Comment on above: Order Comment: Speci men Type: BLOOD SPECIMENOrdering Facility: [facility] Address: [address] [place] [address] Performed By: #### 5 7021-8 ####[facility] LABIA [id number] [place] [address] [facility] OF [place] RBC (Bld) [#/Vol] 4.41 10*6/uL Normal 4.20-6.00 [facility] Comment on above: Order Comment: Speci men Type: BLOOD SPECIMENOrdering Facility: [facility] Address: [address] [place] [address] Performed By: #### 5 7021-8 ####[facility] LABCLIA [id number] [place] [address] [facility] WBC (Bld) [#/Vol] 6.80 10*3/uL Normal 3.70-11.00 [facility] Comment on above: Order Comment: Speci men Type: BLOOD SPECIMENOrdering Facility: [facility] Address: [address] [place] [address] Performed By: #### 5 7021-8 ####[facility] LABIA [id number] [place] [address] [facility] ECG COMPLETEon 12-01-2023 ECG COMPLETE Ventricular Rate : 6 9 BPM Atrial Rate : 69 BPM P-R Interval : 138 ms QRS Duration : 126 ms Q-T Interval : 450 ms QTC Calculation(Bazett) : 482 ms Calculated P [place] : -13 degrees Calculated R [place] : 78 degrees Calculated T [place] : 24 degrees SINUS RHYTHM WITH PREMATURE SUPRAVENTRICULAR COMPLEXES RIGHT BUNDLE BRANCH BLOCK ABNORMAL ECG NO PREVIOUS ECGS AVAILABLE Confirmed by MD SUAREZ VINAYAK ([id number]) on 12/03/2023 4:27:07 PM NAME : ELIS BILLS PID : [id number] : 1960 Gender : Male Race : ORD : [id number] Procedure Date : Dec 01 2023 09:50:21 Edit Date : Dec 03 2023 16:27:10 Diagnosis: SINUS RHYTHM WITH PREMATURE SUPRAVENTRICULAR COMPLEXES RIGHT BUNDLE BRANCH BLOCK ABNORMAL ECG NO PREVIOUS ECGS AVAILABLE Confirmed by MD SUAREZ VINAYAK ([id number]) on 12/03/2023 4:27:07 PM Test Reason : Shortness of Breath Location : 191 : [facility] ED Overread By : MD SUAREZ VINAYAK Edited By : MD SUAREZ VINAYAK Referred By : , Acquired by : DAREN RUCKER [facility] ED NOTEon 12-01-2023 ED NOTE HNO ID: [id number] Author: JORGE JONES, NEENA Service: Nursing Author Type: Registered Nurse Type: ED Notes Filed: 12/01/2023 12:48 Note Text: Patient resting in bed with spouse at bedside. This RN notified patient of room assignment. [facility] ED NOTE HNO ID: [id number] Author: JORGE JONES, NEENA Service: Nursing Author Type: Registered Nurse Type: ED Notes Filed: 12/01/2023 10:59 Note Text: Patient ambulated to bathroom with steady gait. He returned to room 12 SOB, and feeling unchanged from when he arrived. [facility] ED NOTE HNO ID: [id number] Author: JORGE JONES RN Service: Nursing Author Type: Registered Nurse Type: ED Notes Filed: 12/01/2023 09:34 Note Text: Wednesday patient started to feeling winded and it has progressed to SOB with rest or activity. He has used several albuterol treatments at home with no improvement of symptoms. He denies fever but reports a productive cough. No home oxygen needs for his COPD. [facility] ED PROV NOTEon 12-01-2023 ED PROV NOTE HNO ID: [id number] Author: KEYONA CARL DO Service: Emergency Medicine [...] within n (more content not included)... Normal [facility] FLUABV+SARS-CoV-2+RSV Pnl Re sp YADIRA+probeon 12-01-2023 FLUABV+SARS-CoV-2+RSV Pnl Resp YADIRA+probe COVID 19 RESULT: Not detected The method used is RT-PCR or an equivalent NAAT method. Reference Range(the expected result in uninfected individuals): Not detected INFLUENZA A PCR: Not detected INFLUENZA B PCR: Not detected RSV PCR: Not detected Normal [facility] Comment on above: Performed By: #### 9 5941-1 ####[facility] [place] [facility]CL[facility] [id number] [place] [address] [place] HIGH SENSITIVITY TROPONIN T (INITIAL)on 12-01-2023 Troponin T.cardiac High sensitivity method [Mass/Vol] 31 ng/L High <12 [facility] Comment on above: Order Comment: Wilbert torres Type: BLOOD SPECIMENOrdering Facility: [facility] Address: [address] [place] [address] Result Comment: When assessing risk for acute [...] MACE. Performed By: #### 6 00-7 #### [facility] CLIA [id number] [address] HIGH SENSITIVITY TROPONIN T (SECOND)on 12-01-2023 Troponin T.cardiac High sensitivity method [Mass/Vol] 29 ng/L High <12 [facility] Comment on above: Order Comment: Wilbert torres Type: BLOOD SPECIMENOrdering Facility: [facility] Address: [address] [place] [address] Result Comment: When assessing risk for acute [...] MACE. Performed By: #### 6 00-7 #### [facility] CLIA [id number] [address] [place] HIGH SENSITIVITY TROPONIN T (THIRD) 3 HRS AFTER INITIALon 12-01-2023 Troponin T.cardiac High sensitivity method [Mass/Vol] 24 ng/L High <12 [facility] Comment on above: Order Comment: Wilbert torres Type: BLOOD SPECIMENOrdering Facility: [facility] Address: [address] [place] [address] Result Comment: When assessing risk for acute [...] MACE. Performed By: #### 3 2355-0 #### [facility] CLIA [id number] [address] STATES OF [facility] HISTORY PHYSICALon HISTORY PHYSICAL HNO ID: [id number] Author: ALBERTINA DAVILA APRN.[employer]ODUCTION MACHINE [employer] SUPERVISOR Service: Hospital Medicine Author Type: Nurse Practitioner Type: H&P Filed: 12/01/2023 15:07 Note Text: Attestation signed by Ji Fonseca MD at 12/10/2023 9:25 PM [facility] [place], [facility] BY [facility] STAFF PHYSICIAN NOTE OF PERSONAL INVOLVEMENT IN [...] exacerbation (HCC) (POA: Yes) Ji Fonseca MD, [facility] Staff,Dept of Hospital Medicine December 10, 2023 9:25 PM Pager:Click here to page DEPARTMENT OF HOSPITAL MEDICINE HISTORY AND PHYSICAL EXAM SERVICE DATE: 12/01/2023 SERVICE TIME: 1:45 PM Primary Care Physician: Pilar Steele, DO NIGHT AND WEEKEND COVERAGE: [facility] Medicine ROMÁN 7a-7p Page [phone] 7w-3l Subjective CHIEF COMPLAINT: SOB HPI: This is [...] 12 hours. 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 [...] agreeable to observation overnight, but only at [facility] Patient will be admitted for further management. [...] He is (more content not included)... Normal [facility] NT-proBNP [facility] 11-30 Natriuretic peptide.B prohormone N-Terminal [Mass/Vol] 214 pg/mL High <125 [facility] Comment on above: Order Comment: Speci men Type: BLOOD SPECIMENOrdering Facility: [facility] Address: [address] [place] [address] Performed By: #### 3 2355-0 #### [facility] CLIA [id number] [address] [place] NURSING PROGon 12-01-2023 NURSING PROG HNO ID: [id number] Author: ARI HATCH, RN Service: Nursing Author [...] pain. Pt c/odiscomfort. present in room. Normal [facility] Osmolality SerPlon Osmolality [Osmolality] 262 mosm/kg Low 275-300 [facility] Comment on above: Order Comment: Speci men Type: BLOOD SPECIMENOrdering Facility: [facility] Address: [address] [place] [address] Performed By: #### 6 00-7 #### [facility] [id number] [address] [place] [address] [place] Osmolality Uron 12-01-2023 Osmolality (U) [Osmolality] 111 mosm/kg Normal 50-1200 [facility] Comment on above: Order Comment: Speci men Type: URINE SPECIMENOrdering Facility: [facility] Address: [address] [place] [address] Performed By: #### 2 695-5 ####[facility] [id number] [place] [address] [place]#### [address]-7 ####[facility]ORYCLIA [id number] [place] [address] [place] Procalcitonin SerPl-mCncon 0 12-01-2023 Procalcitonin [Mass/Vol] 0.08 ng/mL Normal <0.09 [facility] Comment on above: Order Comment: Speci men Type: BLOOD SPECIMENOrdering Facility: [facility] Address: [address] [place] [address] Result Comment: For a guided interpretation of test results, please visit the Change in Procalcitonin Calculator, [email or web address]. Performed By: #### 3 2355-0 #### [facility] CLIA [id number] [address] OF [facility] Sodium ?Tm Ur-sCncon 024 Sodium Unsp time (U) [Moles/Vol] <20 Normal 14-216 [facility] Comment on above: Order Comment: Speci men Type: URINE SPECIMENOrdering Facility: [facility] Address: [address] [place] [address] Performed By: #### 2 695-5 ####[facility] [id number] [address] [place]#### [address]-2 ####[facility]ORYCLIA [id number] [address] [place] Urate SerPl-mCncon 4 Urate [Mass/Vol] 6.8 mg/dL Normal 4.0-8.1 [facility] Comment on above: Order Comment: Speci men Type: BLOOD SPECIMENOrdering Facility: [facility] Address: [address] [place] [address] Performed By: #### 3 2355-0 #### [facility] CLIA [id number] [address] [place] XR CHEST 1V [...] right basilar opacity suggesting atelectasis. Mild cardiomegaly. Vp Legal Affairs: YAIR Transcribe Date/Time: Dec 01 2023 10:52A Dictated by : JUAREZ RODAS MD This examination was interpreted and the report reviewed and electronically signed by: JUAREZ RODAS MD on Dec 01 2023 10:57AM EST [id number] Normal [facility] 11-21-2023 JELENA Telephone (AGSPHWG) ELIS BILLS ([id number]) 1960 Date Time Provider Department 11/21/23 [facility] During your visit today, we recorded the following information about you: Bertha Schumacher APRN.NABOR 11/21/2023 10:20 PM Signed Hi, can you please call this pt and set up for a virtual visit with me this to discuss his MRI results? Richie. Albertina Martin 11/23/2023 9:13 AM Signed Spoke with patient and scheduled virtual visit with Bertha Schumacehr on 11/25/2023 to discuss MRI Albertina Martin [place] to Dr. Everton Decker MD / Bertha Schumacher CNP, APRN [facility] [address] [place] [address] Phone. [phone] / Fax. [phone] Allergies As of Date: 11/21/2023 Noted Allergy Reaction PENICILLINS 08/27/2014 16 - Unknown Date Reviewed: 11/19/2023 Reviewed by: Malena Yoder, fruit dumper - Fully Assessed Prescriptions as of 11/23/2023 [...] Encounter Status:Closed by ALBERTINA MARTIN on 11/23/23 [facility] MR Lumbar spine WO contrasto n 11-19-2023 [...] and assume there are 5 lumbar-type vertebrae. Vp Legal Affairs: PSCB Transcribe Date/Time: Nov 19 2023 3:30P Dictated by : MECHELLE EDMONDSON MD This examination was interpreted and the report reviewed and electronically signed by: MECHELLE EDMONDSON MD on Nov 19 2023 3:44PM [facility] DIVISION OF RADIOLOGY * * *Final Report* [...] cyst or hemangioma. DIVISION OF RADIOLOGY Provider, [facility] - 11/19/2023 * * *Final Report* * [...] and assume there are 5 lumbar-type vertebrae. Vp Legal Affairs: YAIR Transcribe Date/Time: Nov 19 2023 3:30P Dictated by : MECHELLE EDMONDSON MD This examination was interpreted and the report reviewed and electronically signed by: MECHELLE EDMONDSON MD on Nov 19 2023 3:44PM EST [facility] Radiology Study observation (narrative) [facility] MR Lumbar spine WO contrastO rdered By: Ccf Provider on 11-19-2023 [facility] ALLIED HEALTHon 09-02-2023 ALLIED HEALTH HNO ID: [id number] Author: ERMIAS SAMUELS RT(R) Service: Radiology Author [...] PATIENT PRESENTS WITH AN IMPLANTABLE OR ATTACHED AGRICULTURAL SERVICES DIRECTOR: No RADIOLOGY DEPARTMENT: CT; Exam(s) Completed: Chest PERIPHERAL IV DATA: Not applicable SIGNED BY: RT Chyna(R) September 02, 2023 1:16 PM [facility] CT CHEST WO IVCONon 09-02-19 CT CHEST WO IVCON * * *Final Report* * * DATE OF EXAM: Sep 02 2023 1:21PM [facility] 0541 - CT CHEST WO IVCON / [...] No abnormality in the imaged upper abdomen. Senior Talent Acquisition Specialist (topogram) images: No additional findings. IMPRESSION: No [...] obtained in 12 months --END OF FINDING-- Vp Legal Affairs: YAIR Transcribe Date/Time: Sep 05 2023 11:40A Dictated by : WILLIAM QUINTANA MD This examination was interpreted and the report reviewed and electronically signed by: WILLIAM QUINTANA MD on Sep 05 2023 11:47AM EST [id number] N ACTIONABLE Invalid Interpretation Code [facility] NITRIC OXIDE, EXHALEDon 08-19 [facility] SPIROMETRY WITH DILATOR IF O BSTRUCTEDon 08-20-2023 HWG16-80% PRE (L/S) 0.90 L/S [facility] FEV1 PRE (L) 1.70 L [facility] FEV1/FVC PRE (%) 70 % [facility] FVC PRE (L) 2.44 L [facility] PEF PRE (L/S) 5.67 L/S [facility] Chest PA and Lateralon 08-04 Chest PA and Lateral [facility] Imaging Services [address] [place] [address] Chest PA and Lateral MR#: [id number] Acct: [id number] Name: ELIS BILLS Rep #: [id number] : 1960 M 63 From: Fartun franco MD PCP: Dr. Pilar Steele DO Status: REG CLI Study: Chest PA and Lateral Date of Exam: 08/04/23 Exam# [id number] Ordering Dr: Pilar Steele DO [id number] HISTORY: SOB/COUGH/COPD/BRONCH ITIS. TECHNIQUE: XR Chest 2 Views. COMPARISON: None. FINDINGS: CARDIOMEDIASTINAL BORDERS: Cardiac silhouette within normal limits in size. Mediastinal contour unremarkable. LUNGS: Radiographically clear. PLEURA: No pleural effusion or pneumothorax seen. OSSEOUS STRUCTURES: Spinal osteophytes present. RAD/Chest PA and Lateral IMPRESSION: No acute cardiopulmonary process identified. Electronically Signed: Fartun Chicas MD at 13:23 EST Reading Location ID and State: [facility] / [place] Tel , Service support , CC: Dr. Pilar Steele DO Vp Legal Affairs: Signed Normal [facility] Inital Evaluation (1) - PTon 05-14-2023 Inital Evaluation (1) - PT [facility] [address] [place] [address] [address] [place] [address] / REHABILITATION SERVICES INITIAL EVALUATION MR#: [id number] Acct: [id number] Name: ELIS BILLS Rep #: [id number] : 1960 63 From: Flora Valerio PT, Cert. MDT Referring Dr.: Dr. Juarez Dewitt DO Status: G RCR Insurance: [facility] PACKAGE PLAN Patient's Visit Information Visit Information Visit Information: ELIS BILLS is a 63 year old M referred to Physical Therapy by Dr. Juarez Dewitt DO with a diagnosis of LUMBAR SPINAL STENOSIS AND SPONDYLOSIS. Date of Evaluation: 05/14/23 Physical Therapist: lFora Valerio PT, Cert MDT Visit Plan Frequency: 2-3x /Week Duration: 4-6 Weeks Plan: Neutral Spine Core Stability Exercises and Terrell LE Hip Flexor, Hamstring and Calf Stretching to help reduce stress to the Lumbar Spine with all Daily Activities. Instruction in Proper Posture Control, Body Mechanics and Appropriate Activity Modifications. HEP Instruction. 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 Disability: NO Present symptoms: [...] to activity/condition/po (more content not included)... Normal [facility] Automated blood hematocrit ( percentage)Ordered By: Pilar Steele on 02-20-2023 Hematocrit (Bld) [Volume fraction] 39.6 % Low 40-54 [facility] Comment on above: Performed By: #### L 501.9910, L500.4050, L502.0250, L100.0500, L500.4100 #### [facility] [address] [place], [address] Basophil percentageOrdered B y: Pilar Steele on 02-20-2023 Bilirubin [Mass/Vol] 0.60 mg/dL Normal 0.20-1.00 [facility] Comment on above: For patients on eltr ombopag therapy, use of Dimension [place] TBIL is not recommended. Result Comment: For patients on eltrombopag therapy, use of Dimension [place] TBIL is not recommended. Performed By: #### L 501.9910, L500.4050, L502.0250, L100.0500, L500.4100 #### [facility] [address] [place], [address] Chloride [Moles/Vol] 101 mmol/L Normal 98-107 [facility] Comment on above: Performed By: #### L 501.9910, L500.4050, L502.0250, L100.0500, L500.4100 #### [facility] [address] [place], [address] Cholesterol [Mass/Vol] 89 mg/dL Normal 200 [facility] Comment on above: <200 mg/dL Desirable 200-240 mg/dL Borderline >240 mg/dL High Risk Result Comment: <200 mg/dL Desirable 200-240 mg/dL Borderline >240 mg/dL High Risk Performed By: #### L 501.9910, L500.4050, L502.0250, L100.0500, L500.4100 #### [facility] [address] [place], [address] Glucose [Mass/Vol] 102 mg/dL Normal 74-106 [facility] Comment on above: Fasting Glucose resu lt from 100 to 125 mg/dL suggests IMPAIRED HOMEOSTASIS per A.D.A. criteria. Result Comment: Fast ing Glucose result from 100 to 125 mg/dL suggests IMPAIRED HOMEOSTASIS per A.D.A. criteria. Performed By: #### L 501.9910, L500.4050, L502.0250, L100.0500, L500.4100 #### [facility] [address] [place], [address] Potassium [Moles/Vol] 4.7 mmol/L Normal 3.5-5.1 [facility] Comment on above: Performed By: #### L 501.9910, L500.4050, L502.0250, L100.0500, L500.4100 #### [facility] [address] [place], [address] Sodium [Moles/Vol] 135 mmol/L Low 136-145 [facility] Comment on above: Performed By: #### L 501.9910, L500.4050, L502.0250, L100.0500, L500.4100 #### [facility] [address] [place], [address] Triglyceride [Mass/Vol] 54 mg/dL Normal [facility] Comment on above: The drugs N-Acetylcy steine [...] L 501.9910, L500.4050, L502.0250, L100.0500, L500.4100 #### [facility] [address] [place], [address] WBC (Bld) [#/Vol] 7.7 10*3/uL Normal 4.4-11.0 [facility] Comment on above: Performed By: #### L 501.9910, L500.4050, L502.0250, L100.0500, L500.4100 #### [facility] [address] [place], [address] Protein [Mass/Vol] 7.3 g/dL 6.4-8.2 [facility] Blood erythrocytes count (nu mber/volume)Ordered By: Pilar Steele on 02-20-2023 RBC (Bld) [#/Vol] 4.46 10*6/uL Low 4.6-6.2 [facility] Comment on above: Performed By: #### L 501.9910, L500.4050, L502.0250, L100.0500, L500.4100 #### [facility] [address] [place], [place], [address] Blood hemoglobin measurement (mass/volume)Ordered By: Pilar Steele on 02-20-2023 Hemoglobin (Bld) [Mass/Vol] 13.2 g/dL Normal 13.0-16.5 [facility] Comment on above: Performed By: #### L 501.9910, L500.4050, L502.0250, L100.0500, L500.4100 #### [facility] [address] [place], [place], [id number] Blood platelet mean volumeOr dered By: Pilar Steele on 02-20-2023 Platelet mean volume (Bld) [Entitic vol] 9.4 fL Normal 6.2-12.0 [facility] Comment on above: Performed By: #### L 501.9910, L500.4050, L502.0250, L100.0500, L500.4100 #### [facility] [address] [place], [place], [id number] CBC-Complete Blood Cnt No Di ffOrdered By: Pilar Steele on 02-20-2023 Erythrocyte distribution width (RBC) [Ratio] 13.8 % Normal 11.6-14.6 [facility] Comment on above: Performed By: #### L 501.9910, L500.4050, L502.0250, L100.0500, L500.4100 #### [facility] [address] [place], [address] MCH (RBC) [Entitic mass] 29.6 pg Normal 27.0-32.0 [facility] Comment on above: Performed By: #### L 501.9910, L500.4050, L502.0250, L100.0500, L500.4100 #### [facility] [address] [place], [address] CBC-Complete Blood Cnt No Di on 02-20-2023 RDW SD 44.9 fl High 35.1-43.9 [facility] Comment on above: Performed By: #### L 501.9910, L500.4050, L502.0250, L100.0500, L500.4100 #### [facility] [address] [place], [address] Comprehensive Metabolic Prof [facility] 02-20-2023 ALK P 71 U/L Normal 45-117 [facility] Comment on above: Performed By: #### L 501.9910, L500.4050, L502.0250, L100.0500, L500.4100 #### [facility] [address] [place], [address] AST [Catalytic activity/Vol] 17 U/L Normal 15-37 [facility] Comment on above: Performed By: #### L 501.9910, L500.4050, L502.0250, L100.0500, L500.4100 #### [facility] [address] [place], [address] BUN/CRE 12.3 RATIO Normal 10-20 [facility] Comment on above: Performed By: #### L 501.9910, L500.4050, L502.0250, L100.0500, L500.4100 #### [facility] [address] [place], [address] CA,Total 8.7 mg/dL Normal 8.5-10.1 [facility] Comment on above: Performed By: #### L 501.9910, L500.4050, L502.0250, L100.0500, L500.4100 #### [facility] [address] [place], [address] EST GFR - AA 99 mL/min Normal >60 [facility] Comment on above: Result Comment: Afri can [place] GFR Calc Performed By: #### L 501.9910, L500.4050, L502.0250, L100.0500, L500.4100 #### [facility] [address] [place], [address] GAP 5 Normal 5-15 [facility] Comment on above: Performed By: #### L 501.9910, L500.4050, L502.0250, L100.0500, L500.4100 #### [facility] [address] [place], [place], [address] GFR/1.73 sq M.predicted among non-blacks MDRD (S/P/Bld) [Vol rate/Area] 82 mL/min/{1.73_m2} Normal >60 [facility] Comment on above: Result Comment: Non- GFR Calc Performed By: #### L 501.9910, L500.4050, L502.0250, L100.0500, L500.4100 #### [facility] [address] [place], [address] T PROT 7.3 g/dL Normal 6.4-8.2 [facility] Comment on above: Performed By: #### L 501.9910, L500.4050, L502.0250, L100.0500, L500.4100 #### [facility] [address] [place], [address] Comprehensive Metabolic Prof ilOrdered By: Pilar Steele on 02-20-2023 ALT [Catalytic activity/Vol] 26 U/L Normal 16-61 [facility] Comment on above: Performed By: #### L 501.9910, L500.4050, L502.0250, L100.0500, L500.4100 #### [facility] [address] [place], [address] CO2 [Moles/Vol] 29.0 mmol/L Normal 21.0-32.0 [facility] Comment on above: Performed By: #### L 501.9910, L500.4050, L502.0250, L100.0500, L500.4100 #### [facility] [address] [place], [address] Globulin (S) [Mass/Vol] 3.6 g/dL Normal 2.2-4.2 [facility] Comment on above: Performed By: #### L 501.9910, L500.4050, L502.0250, L100.0500, L500.4100 #### [facility] [address] [place], [address] Determination of erythrocyte mean corpuscular volume (MCV)Ordered By: Pilar Steele on 02-20-2023 MCV (RBC) [Entitic vol] 88.8 fL Normal 80-94 [facility] Comment on above: Performed By: #### L 501.9910, L500.4050, L502.0250, L100.0500, L500.4100 #### [facility] [address] [place], [address] Laboratory - Chemistry and C hemistry - challengeOrdered By: Pilar Steele on 02-20-2023 ALP [Catalytic activity/Vol] 71 U/L 45-117 [facility] Urea nitrogen/Creatinine [Mass ratio] 12.3 mg/mg 10-20 [facility] Laboratory - Hematology and Cell countsOrdered By: Pilar Steele on 02-20-2023 Erythrocyte distribution width (RBC) [Entitic vol] 44.9 fL 35.1-43.9 [facility] MCHC [Mass/volume] by Automa ignacio countOrdered By: Pilar Steele on 02-20-2023 MCHC (RBC) [Mass/Vol] 33.3 g/dL Normal 32-36 [facility] Comment on above: Performed By: #### L 501.9910, L500.4050, L502.0250, L100.0500, L500.4100 #### [facility] [address] [place], [address] Microalb:Creat Ratio,Random URon 02-20-2023 MALB:CRE Normal <30 mg/g CRE [facility] Comment on above: Result Comment: @[facility] IENT DID NOT WANT TO DO URINE Performed By: #### L 501.9910, L500.4050, L502.0250, L100.0500, L500.4100 #### [facility] [address] [place], [place], [address] MICROALBUMIN,UR Normal NO RANGE EST. [facility] Comment on above: Result Comment: @PAT IENT DID NOT WANT TO DO URINE Performed By: #### L 501.9910, L500.4050, L502.0250, L100.0500, L500.4100 #### [facility] [address] [place], [address] UR CREAT Normal NO RANGE EST. [facility] Comment on above: Result Comment: @PAT IENT DID NOT WANT TO DO URINE Performed By: #### L 501.9910, L500.4050, L502.0250, L100.0500, L500.4100 #### [facility] [address] [place], [address] No Panel InformationOrdered By: Pilar Steele on 02-20-2023 Estimated GFR (MDRD) Amer 99 mL/min >60 [facility] Comment on above: GFR Calc Estimated GFR (MDRD) Non-Af Amer 82 mL/min >60 [facility] Comment on above: Non- GFR Calc Prostate Specific Antigen Screen 0.77 ng/mL 0.00-4.00 [facility] Comment on above: This test was perfor med using the TPSA assay method for the[employer] chemistry system. Values obtained with differentassay methods cannot be used interchangably.When changing PSA assays in the course of monitoring apatient, additional sequential testing should be carriedout to confirm baseline values. PSA,Total - Annual Screenon 02-20-2023 PSA,TOT SCREEN 0.77 ng/mL Normal 0.00-4.00 [facility] Comment on above: Result Comment: This test was performed using the TPSA assay method for the [employer] chemistry system. Values obtained with different assay methods cannot be used interchangably. When changing PSA assays in the course of monitoring a patient, additional sequential testing should be carried out to confirm baseline values. Performed By: #### L 501.9910, L500.4050, L502.0250, L100.0500, L500.4100 #### [facility] [address] [place], [address] Platelets bldOrdered By: Jeffrey Steele on 02-20-2023 Platelets (Bld) [#/Vol] 250 10*3/uL Normal 150-450 [facility] Comment on above: Performed By: #### L 501.9910, L500.4050, L502.0250, L100.0500, L500.4100 #### [facility] [address] [place], [address] Serum or plasma albumin sidra urement (mass/volume)Ordered By: Pilar Steele on 02-20-2023 Albumin [Mass/Vol] 3.7 g/dL Normal 3.2-5.0 [facility] Comment on above: Performed By: #### L 501.9910, L500.4050, L502.0250, L100.0500, L500.4100 #### [facility] [address] [place], [address] Serum or plasma albumin/glob ulin mass ratioOrdered By: Pilar Steele on 02-20-2023 Albumin/Globulin [Mass ratio] 1.0 {ratio} Normal 0.9-2.4 [facility] Comment on above: Performed By: #### L 501.9910, L500.4050, L502.0250, L100.0500, L500.4100 #### [facility] [address] [place], [place], [address] Serum or plasma calcium sidra urement (mass/volume)Ordered By: Pilar Steele on 02-20-2023 Calcium [Mass/Vol] 8.7 mg/dL 8.5-10.1 [facility] Serum or plasma cholesterol in HDL measurement (mass/volume)Ordered By: Pilar Steele on 02-20-2023 Cholesterol in HDL [Mass/Vol] 48 mg/dL Normal [facility] Comment on above: The drugs N-Acetylcy steine [...] L 501.9910, L500.4050, L502.0250, L100.0500, L500.4100 #### [facility] [address] [place], [address] Serum or plasma cholesterol in VLDL measurement (mass/volume)Ordered By: Pilar Steele on 02-20-2023 Cholesterol in VLDL [Mass/Vol] 11 mg/dL Normal 5-40 [facility] Comment on above: Performed By: #### L 501.9910, L500.4050, L502.0250, L100.0500, L500.4100 #### [facility] [address] [place], [address] Serum or plasma creatinine m easurement (mass/volume)Ordered By: Pilar Steele on 02-20-2023 Creatinine [Mass/Vol] 0.98 mg/dL Normal 0.70-1.30 [facility] Comment on above: The validity of the calculated GFR & GFRAA in patients over 70 years has not been determined. Clinical correlation is essential. Result Comment: The validity of the calculated GFR GFRAA in patients over 70 years has not been determined. Clinical correlation is essential. Performed By: #### L 501.9910, L500.4050, L502.0250, L100.0500, L500.4100 #### [facility] [address] [place], [place], [address] Serum or plasma low density lipoprotein (LDL) cholesterol measurement (mass/volume)Ordered By: Pilar Steele on 02-20-2023 Cholesterol in LDL [Mass/Vol] 30 mg/dL Normal 0-130 [facility] Comment on above: Performed By: #### L 501.9910, L500.4050, L502.0250, L100.0500, L500.4100 #### [facility] [address] [place], [place], [address] Serum or plasma urea nitroge n measurement (mass/volume)Ordered By: Pilar Steele on 02-20-2023 Urea nitrogen [Mass/Vol] 12 mg/dL Normal 7-18 [facility] Comment on above: Performed By: #### L 501.9910, L500.4050, L502.0250, L100.0500, L500.4100 #### [facility] [address] [facility] [address] [place], [place], [address] Thin prep Papanicolaou smear with manual screeningOrdered By: Pilar Steele on 02-20-2023 Thin prep Papanicolaou smear with manual screening 17 U/L 15-37 [facility] Thin prep Papanicolaou smear with manual screening 5 5-15 [facility] Basophil percentageon 2021 Bilirubin [Mass/Vol] 0.60 mg/dL 0.20-1.00 [facility] Work Phone: Comment on above: For patients on eltr ombopag therapy, use of Dimension [place] TBIL is not recommended. Chloride [Moles/Vol] 102 mmol/L 98-107 [facility] Work Phone: Cholesterol [Mass/Vol] 86 mg/dL <200 [facility] Work Phone: Comment on above: <200 mg/dL Desirable 200-240 mg/dL Borderline >240 mg/dL High Risk Glucose [Mass/Vol] 98 mg/dL 74-106 [facility] Work Phone: Potassium [Moles/Vol] 4.3 mmol/L 3.5-5.1 [facility] Work Phone: Protein [Mass/Vol] 7.0 g/dL 6.4-8.2 [facility] Work Phone: Sodium [Moles/Vol] 134 mmol/L 136-145 [facility] Work Phone: Triglyceride [Mass/Vol] 51 mg/dL <199 [facility] Work Phone: Comment on above: The drugs N-Acetylcy steine and Metamizole may falsely depress this assay.Serum Triglycerides Reference Interval Normal <150 mg/dL Borderline high 150 - 199 mg/dL High 200 - 499 mg/dL Very High > or = 500 mg/dL Laboratory - Chemistry and C hemistry - challengeon 02-07-2022 ALP [Catalytic activity/Vol] 79 U/L 45-117 [facility] Work Phone: ALT [Catalytic activity/Vol] 30 U/L 16-61 [facility] Work Phone: CO2 [Moles/Vol] 27.0 mmol/L 21.0-32.0 [facility] Work Phone: Globulin (S) [Mass/Vol] 3.5 g/dL 2.2-4.2 [facility] Work Phone: Urea nitrogen/Creatinine [Mass ratio] 6.2 mg/mg 10-20 [facility] Work Phone: No Panel Informationon 02-07 Estimated GFR (MDRD) Amer 102 mL/min >60 [facility] Work Phone: Comment on above: GFR Calc Estimated GFR (MDRD) Non-Af Amer 84 mL/min >60 [facility] Work Phone: Comment on above: Non- GFR Calc Prostate Specific Antigen Screen 0.99 ng/mL 0.00-4.00 [facility] Work Phone: Comment on above: This test was perfor med using the TPSA assay method for [employer] chemistry system. Values obtained with differentassay methods cannot be used interchangably.When changing PSA assays in the course of monitoring apatient, additional sequential testing should be carriedout to confirm baseline values. Serum or plasma albumin sidra urement (mass/volume)on 02-07-2022 Albumin [Mass/Vol] 3.5 g/dL 3.2-5.0 [facility] Work Phone: Serum or plasma albumin/glob ulin mass ratioon 02-07-2022 Albumin/Globulin [Mass ratio] 1.0 {ratio} 0.9-2.4 [facility] Work Phone: Serum or plasma calcium sidra urement (mass/volume)on 02-07-2022 Calcium [Mass/Vol] 8.7 mg/dL 8.5-10.1 [facility] Work Phone: Serum or plasma cholesterol in HDL measurement (mass/volume)on 02-07-2022 Cholesterol in HDL [Mass/Vol] 41 mg/dL >40 [facility] Work Phone: Comment on above: The drugs N-Acetylcy steine and Metamizole may falsely depress this assay. Reference Range HDL <40 mg/dL Low HDL Cholesterol HDL >or= 60 mg/dL High HDL Cholesterol Serum or plasma cholesterol in VLDL measurement (mass/volume)on 02-07-2022 Cholesterol in VLDL [Mass/Vol] 10 mg/dL 5-40 [facility] Work Phone: Serum or plasma creatinine m easurement (mass/volume)on 02-07-2022 Creatinine [Mass/Vol] 0.96 mg/dL 0.70-1.30 [facility] Work Phone: Comment on above: The validity of the calculated GFR & GFRAA in patients over 70 years has not been determined. Clinical correlation is essential. Serum or plasma low density lipoprotein (LDL) cholesterol measurement (mass/volume)on 02-07-2022 Cholesterol in LDL [Mass/Vol] 35 mg/dL 0-130 [facility] Work Phone: Serum or plasma urea nitroge n measurement (mass/volume)on 02-07-2022 Urea nitrogen [Mass/Vol] 6 mg/dL 7-18 [facility] Work Phone: Thin prep Papanicolaou smear with manual screeningon 02-07-2022 Thin prep Papanicolaou smear with manual screening 17 U/L 15-37 [facility] Work Phone: Thin prep Papanicolaou smear with manual screening 5 5-15 [facility] Work Phone: Serum or plasma severe acute respiratory syndrome coronavirus 2 (SARS-CoV-2) IgG antion 01-31-2022 SARS-CoV-2 (COVID-19) IgG IA Ql See comment [facility] Work Phone: Comment on above: TEST RESULT LIMITSSA RS-CoV-2 Antibody, [id number] Semi- Quant IgG Ab A, 47.8 AU/mL Neg <13.0SARS-CoV-2 Cl Ab Interp A, PositiveAntibodies against the SARS-CoV-2 spike protein, including the receptor binding domain (RBD) were detected. It is not yet known what level of antibody to SARS-CoV-2 spike protein correlates to immunity against developing symptomatic SARS-CoV-2 disease.This assay was performed using [employer] Liaison(R) SARS-CoV-2 Trimeric S IgG assay.CommentsA: This [...] viruses or pathogens. ___ TESTING PERFORMED AT [facility]. ORIGINAL REPORT ON FILE IN LAB CONTAINS ADDITIONAL TEST SITE INFORMATION. .GFRon 12-30-2019 GFR 87 ml/min/1.73sqm Normal [facility] ([place]) Comment on above: Result Comment: GFR Population [...] #### L IPID, CMP, GFR #### [place] [address] GFR Non- 72 ml/min/1.73sqm Normal [facility] ([place]) Comment on above: Result Comment: GFR Population [...] By: #### L IPID, CMP, GFR #### [address] [address] CMPon 12-30-2019 Albumin [Mass/Vol] 4.2 G/dL Normal 3.4-4.8 [facility] ([place]) Comment on above: Performed By: #### L IPID, CMP, GFR #### [address] [address] Albumin/Globulin [Mass ratio] 1.3 {ratio} Normal 1.1-2.5 [facility] ([place]) Comment on above: Performed By: #### L IPID, CMP, GFR #### [address] [address] ALP [Catalytic activity/Vol] 76 U/L Normal 40-135 [facility] ([place]) Comment on above: Performed By: #### L IPID, CMP, GFR #### [address] [address] ALT [Catalytic activity/Vol] 36 U/L High 10-35 [facility] ([place] Comment on above: Performed By: #### L IPID, CMP, GFR #### [address] [address] AST [Catalytic activity/Vol] 22 U/L Normal 10-40 [facility] ([place] Comment on above: Performed By: #### L IPID, CMP, GFR #### [address] [address] Bili Total 0.6 mg/dL Normal 0.2-1.0 [facility] ([place]) Comment on above: Result Comment: Use of this assay is not recommended for patients undergoing treatment with eltrombopag due to the potential for falsely elevated results. Performed By: #### L IPID, CMP, GFR #### [address] [address] Calcium [Mass/Vol] 8.9 mg/dL Normal 8.4-10.2 [facility] ([place]) Comment on above: Performed By: #### L IPID, CMP, GFR #### [address] [address] Chloride [Moles/Vol] 97 mmol/L Low 98-107 [facility] ([place]) Comment on above: Performed By: #### L IPID, CMP, GFR #### [address] [address] CO2 [Moles/Vol] 28 mmol/L Normal 23-31 [facility] ([place]) Comment on above: Performed By: #### L IPID, CMP, GFR #### [address] [address] Creatinine [Mass/Vol] 1.05 mg/dL Normal 0.70-1.30 [facility] ([place]) Comment on above: Performed By: #### L IPID, CMP, GFR #### [address] [address] Electrolyte Balance 8.0 mEq/L Normal [facility] ([place]) Comment on above: Performed By: #### L IPID, CMP, GFR #### [address] [address] Globulin (S) [Mass/Vol] 3.3 G/dL Normal [facility] ([place] Comment on above: Performed By: #### L IPID, CMP, GFR #### [address] [address] Glucose [Mass/Vol] 99 mg/dL Normal 80-115 [facility] ([place] Comment on above: Performed By: #### L IPID, CMP, GFR #### [address] [address] Potassium [Moles/Vol] 5.1 mmol/L Normal 3.5-5.1 [facility] ([place] Comment on above: Performed By: #### L IPID, CMP, GFR #### [address] [address] Protein [Mass/Vol] 7.5 G/dL Normal 6.4-8.2 [facility] ([place]) Comment on above: Performed By: #### L IPID, CMP, GFR #### [address] [address] Sodium [Moles/Vol] 133 mmol/L Low 136-145 [facility] ([place] Comment on above: Performed By: #### L IPID, CMP, GFR #### [address] [address] Urea nitrogen [Mass/Vol] 13 mg/dL Normal 7-18 [facility] ([place] Comment on above: Performed By: #### L IPID, CMP, GFR #### [address] [address] Urea nitrogen/Creatinine [Mass ratio] 12 ratio Normal 7-27 [facility] ([place] Comment on above: Performed By: #### L IPID, CMP, GFR #### [address] [address] LIPIDon 12-30-2019 Cholesterol [Mass/Vol] 111 mg/dL Normal 0-200 [facility] ([place] Comment on above: Result Comment: Chol esterol Reference Interval: Less than 200 Desirable 200-239 Borderline high risk 240 and above High risk Performed By: #### L IPID, CMP, GFR #### [address] [address] Cholesterol in HDL [Mass/Vol] 54 mg/dL Normal 40-60 [facility] ([place] Comment on above: Performed By: #### L IPID, CMP, GFR #### [address] [address] Cholesterol in LDL [Mass/Vol] 50 mg/dL Normal 0-130 [facility] ([place] Comment on above: Performed By: #### L IPID, CMP, GFR #### [facility] [address] [place], [place] [address] Triglyceride [Mass/Vol] 35 mg/dL Normal 0-150 [facility] ([place] Comment on above: Result Comment: Trig lyceride Reference Interval: Less than 150 Normal 150-199 Borderline high risk 200-499 High risk 500 or higher Very high risk Performed By: #### L IPID, CMP, GFR #### [place] [address] [place], [place] [address] Vital Signs Date Time Vital Sign Value Performing Clinician Facility 01-08-2025 09:51-0400 Body mass index (BMI) [Ratio] 39.99 kg/m2 Veronica Butt [employer] Work Phone: [facility] 01-08-2025 09:51-0400 Body weight 119.3 kg Veronica Butt [employer]ODUCTION MACHINE [employer] Work Phone: [facility] 01-08-2025 09:51-0400 Diastolic blood pressure 78 mm[Hg] Veronica Butt [employer]ODUCTION MACHINE [employer] [facility] 01-08-2025 09:51-0400 Heart rate 73 /min Veronica Johnny [employer]ODUCTION MACHINE [employer] [facility] 01-08-2025 09:51-0400 SaO2% (BldA) [Mass fraction] 95 % Vreonica Butt [employer]ODUCTION MACHINE [employer]PER[employer] Work Phone: [facility] Comment on above: 01-08-2025 09:51-0400 Systolic blood pressure 128 mm[Hg] Veronica Butt [employer]ODUCTION MACHINE [employer] [facility] 12-02-2024 13:20-0400 Body temperature 98.01 [degF] Davie Carroll MD Work Phone: [facility] 12-02-2024 13:20-0400 Diastolic blood pressure 78 mm[Hg] Davie Carroll MD Work Phone: [facility] 12-02-2024 13:20-0400 Heart rate 70 /min Davie Carroll MD Work Phone: [facility] 12-02-2024 13:20-0400 Respiratory rate 19 /min Davie Carroll MD Work Phone: [facility] 12-02-2024 13:20-0400 SaO2% (BldA) [Mass fraction] 99 % Davie Carroll MD Work Phone: [facility] 12-02-2024 13:20-0400 Systolic blood pressure 159 mm[Hg] Davie Carroll MD Work Phone: [facility] 11-17-2024 14:08-0400 Body height 174 cm Anna Petruzzi PA-C Work Phone: [facility] 11-17-2024 14:08-0400 Body mass index (BMI) [Ratio] 40.38 kg/m2 Anna Petruzzi PA-C Work Phone: [facility] 11-17-2024 14:08-0400 Body temperature 98.49 [degF] Anna Petruzzi PA-C Work Phone: [facility] 11-17-2024 14:08-0400 Body weight 122.24 kg Anna Petruzzi PA-C Work Phone: [facility] 11-17-2024 14:08-0400 Diastolic blood pressure 67 mm[Hg] Anna Petruzzi PA-C Work Phone: [facility] 11-17-2024 14:08-0400 Heart rate 74 /min Anna Petruzzi PA-C Work Phone: [facility] 11-17-2024 14:08-0400 Respiratory rate 18 /min Anna Petruzzi PA-C Work Phone: [facility] 11-17-2024 14:08-0400 SaO2% (BldA) [Mass fraction] 96 % Anna Petruzzi PA-C Work Phone: [facility] 11-17-2024 14:08-0400 Systolic blood pressure 137 mm[Hg] Anna Sanders PA-C Work Phone: [facility] 10-26-2024 12:02-0400 Diastolic blood pressure 94 mm[Hg] Aura Wagner MD Work Phone: [facility] 10-26-2024 12:02-0400 Heart rate 83 /min Aura Wagner MD Work Phone: [facility] 10-26-2024 12:02-0400 Respiratory rate 31 /min Aura Wagner MD Work Phone: [facility] 10-26-2024 12:02-0400 SaO2% (BldA) [Mass fraction] 90 % Aura Wagner MD Work Phone: [facility] 10-26-2024 12:02-0400 Systolic blood pressure 158 mm[Hg] Aura Wagner MD Work Phone: [facility] 10-26-2024 12:00-0400 Body temperature 98.2 [degF] Aura Wagner MD Work Phone: [facility] 10-25-2024 00:00-0400 Body mass index (BMI) [Ratio] 39.56 kg/m2 Aura Wagner MD Work Phone: [facility] 10-25-2024 00:00-0400 Body weight 121.5 kg Aura Wagner MD Work Phone: [facility] 10-24-2024 20:56-0400 SaO2% (BldA) [Mass fraction] 98 % Aura Wagner MD Work Phone: [facility] 10-24-2024 19:42-0400 Body height 175.3 cm Aura Wagner MD Work Phone: [facility] 08-10-2024 13:00-0500 Body height 175.3 cm Lois Kee MD Work Phone: [facility] 08-10-2024 13:00-0500 Body mass index (BMI) [Ratio] 38.03 kg/m2 Lois Kee MD Work Phone: [facility] 08-10-2024 13:00-0500 Body weight 116.8 kg Lois Kee MD Work Phone: [facility] 08-10-2024 13:00-0500 Diastolic blood pressure 90 mm[Hg] Lois Kee MD Work Phone: [facility] 08-10-2024 13:00-0500 Heart rate 63 /min Lois Kee MD Work Phone: [facility] 08-10-2024 13:00-0500 SaO2% (BldA) [Mass fraction] 97 % Lois Kee MD Work Phone: [facility] 08-10-2024 13:00-0500 Systolic blood pressure 170 mm[Hg] Lois Kee MD Work Phone: [facility] 07-14-2024 13:00-0500 Body height 175.3 cm Pst 1 [facility] 07-14-2024 13:00-0500 Body mass index (BMI) [Ratio] 41.05 kg/m2 Pst 1 [facility] 07-14-2024 13:00-0500 Body temperature 97.5 [degF] Pst 1 [facility] 07-14-2024 13:00-0500 Body weight 126.1 kg Pst 1 [facility] 07-14-2024 13:00-0500 Diastolic blood pressure 80 mm[Hg] Pst 1 [facility] Comment on above: manual 07-14-2024 13:00-0500 Heart rate 68 /min Pst 1 [facility] 07-14-2024 13:00-0500 Respiratory rate 18 /min Pst 1 [facility] 07-14-2024 13:00-0500 SaO2% (BldA) [Mass fraction] 97 % Pst 1 [facility] 07-14-2024 13:00-0500 Systolic blood pressure 150 mm[Hg] Pst 1 [facility] Comment on above: manual 06-05-2024 09:08-0500 Body mass index (BMI) [Ratio] 44.71 kg/m2 Lios Kee MD Work Phone: [facility] 06-05-2024 09:08-0500 Body weight 129.5 kg Lois Kee MD Work Phone: [facility] 06-05-2024 09:08-0500 Diastolic blood pressure 84 mm[Hg] Lois Kee MD Work Phone: [facility] 06-05-2024 09:08-0500 Heart rate 72 /min Lois Kee MD Work Phone: [facility] 06-05-2024 09:08-0500 Respiratory rate 20 /min Lois Kee MD Work Phone: [facility] 06-05-2024 09:08-0500 SaO2% (BldA) [Mass fraction] 96 % Lois Kee MD Work Phone: [facility] 06-05-2024 09:08-0500 Systolic blood pressure 161 mm[Hg] Lois Kee MD Work Phone: [facility] 05-10-2024 08:16-0400 Diastolic blood pressure 67 mm[Hg] Everton Decker MD Work Phone: [facility] 05-10-2024 08:16-0400 Heart rate 69 /min Everton Decker MD Work Phone: [facility] 05-10-2024 08:16-0400 Respiratory rate 18 /min Everton Decker MD Work Phone: [facility] 05-10-2024 08:16-0400 SaO2% (BldA) [Mass fraction] 98 % Everton Decker MD Work Phone: [facility] 05-10-2024 08:16-0400 Systolic blood pressure 156 mm[Hg] Everton Decker MD Work Phone: [facility] 04-26-2024 08:23-0400 Diastolic blood pressure 98 mm[Hg] Everton Decker MD Work Phone: [facility] 04-26-2024 08:23-0400 Heart rate 68 /min Everton Decker MD Work Phone: [facility] 04-26-2024 08:23-0400 Respiratory rate 18 /min Everton Decker MD Work Phone: [facility] 04-26-2024 08:23-0400 SaO2% (BldA) [Mass fraction] 98 % Everton Decker MD Work Phone: [facility] 04-26-2024 08:23-0400 Systolic blood pressure 178 mm[Hg] Everton Decker MD Work Phone: [facility] 04-06-2024 09:11-0400 Body height 170.2 cm Lois Kee MD Work Phone: [facility] 04-06-2024 09:11-0400 Body mass index (BMI) [Ratio] 44.37 kg/m2 Lois Kee MD Work Phone: [facility] 04-06-2024 09:11-0400 Body weight 128.5 kg Lois Kee MD Work Phone: [facility] 04-06-2024 09:11-0400 Diastolic blood pressure 89 mm[Hg] Lois Kee MD Work Phone: [facility] 04-06-2024 09:11-0400 Heart rate 74 /min Lois Kee MD Work Phone: [facility] 04-06-2024 09:11-0400 Respiratory rate 18 /min Lois Kee MD Work Phone: [facility] 04-06-2024 09:11-0400 SaO2% (BldA) [Mass fraction] 98 % Lois Kee MD Work Phone: [facility] 04-06-2024 09:11-0400 Systolic blood pressure 154 mm[Hg] Lois Kee MD Work Phone: [facility] 03-16-2024 11:16-0400 Diastolic blood pressure 77 mm[Hg] Everton Decker MD Work Phone: [facility] 03-16-2024 11:16-0400 Heart rate 71 /min Everton Decker MD Work Phone: [facility] 03-16-2024 11:16-0400 Respiratory rate 18 /min Everton Decker MD Work Phone: [facility] 03-16-2024 11:16-0400 SaO2% (BldA) [Mass fraction] 97 % Everton Decker MD Work Phone: [facility] 03-16-2024 11:16-0400 Systolic blood pressure 178 mm[Hg] Everton Decker MD Work Phone: [facility] 12-21-2023 19:11-0400 Body height 170.2 cm Yashira Gonsales 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 Work Phone: [facility] 12-21-2023 19:11-0400 Body mass index (BMI) [Ratio] 43.54 kg/m2 Yashira Gonsales APRN.PRODUCTION MACHINE [employer] Work Phone: [facility] 12-21-2023 19:11-0400 Body weight 126.1 kg Yashira Gonsales APRN.PRODUCTION MACHINE [employer] Work Phone: [facility] 12-16-2023 10:56-0400 Diastolic blood pressure 89 mm[Hg] Dhiraj Herr MD Work Phone: [facility] 12-16-2023 10:56-0400 Heart rate 66 /min Dhiraj Herr MD Work Phone: [facility] 12-16-2023 10:56-0400 Respiratory rate 16 /min Dhiraj Herr MD Work Phone: [facility] 12-16-2023 10:56-0400 SaO2% (BldA) [Mass fraction] 97 % Dhiraj Herr MD Work Phone: [facility] 12-16-2023 10:56-0400 Systolic blood pressure 154 mm[Hg] Dhiraj Herr MD Work Phone: [facility] 11-11-2023 09:39-0400 Body height 170.2 cm Shelton Aguilera MD Work Phone: [facility] 11-11-2023 09:39-0400 Body mass index (BMI) [Ratio] 43.54 kg/m2 Shelton Aguilera MD Work Phone: [facility] 11-11-2023 09:39-0400 Body temperature 98.01 [degF] Shelton Aguilera MD Work Phone: [facility] 11-11-2023 09:39-0400 Body weight 126.1 kg Shelton Aguilera MD Work Phone: [facility] 11-11-2023 09:39-0400 Diastolic blood pressure 91 mm[Hg] Shelton Aguilera MD Work Phone: [facility] 11-11-2023 09:39-0400 Heart rate 75 /min Shelton Aguilera MD Work Phone: [facility] 11-11-2023 09:39-0400 Respiratory rate 20 /min Shelton Aguilera MD Work Phone: [facility] 11-11-2023 09:39-0400 SaO2% (BldA) [Mass fraction] 95 % Shelton Aguilera MD Work Phone: [facility] 11-11-2023 09:39-0400 Systolic blood pressure 163 mm[Hg] Shelton Aguilera MD Work Phone: [facility] 10-28-2023 10:03-0400 Diastolic blood pressure 94 mm[Hg] Dhiraj Herr MD Work Phone: [facility] 10-28-2023 10:03-0400 Heart rate 70 /min Dhiraj Herr MD Work Phone: [facility] 04-11-2024 10:03-0400 Respiratory rate 16 /min Dhiraj Herr MD Work Phone: [facility] 10-28-2023 10:03-0400 SaO2% (BldA) [Mass fraction] 96 % Dhiraj Herr MD Work Phone: [facility] 10-28-2023 10:03-0400 Systolic blood pressure 151 mm[Hg] Dhiraj Herr MD Work Phone: [facility] 09-23-2023 08:06-0500 Heart rate 74 /min Bertha Prebish 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 Work Phone: [facility] 09-23-2023 08:06-0500 Respiratory rate 20 /min Bertha Prebish 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 Work Phone: [facility] 09-23-2023 08:06-0500 SaO2% (BldA) [Mass fraction] 99 % Bertha Prebish 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 Work Phone: [facility] 03-22-2022 12:55-0400 Heart rate 84 /min [facility] Work Phone: 03-22-2022 12:55-0400 Respiratory rate 17 /min [facility] Work Phone: 03-22-2022 12:55-0400 SaO2% (BldA) [Mass fraction] 99 % [facility] Work Phone: 03-22-2022 11:13-0400 Body height 175.26 cm [facility] Work Phone: 03-22-2022 11:13-0400 Body mass index (BMI) [Ratio] 36 kg/m2 [facility] Work Phone: 03-22-2022 11:13-0400 Body temperature 97.4 [degF] [facility] Work Phone: 03-22-2022 11:13-0400 Body weight 110.7 kg [facility] Work Phone: 03-22-2022 11:13-0400 Diastolic blood pressure 77 mm[Hg] [facility] Work Phone: 03-22-2022 11:13-0400 Systolic blood pressure 160 mm[Hg] [facility] Work Phone: Encounters Encounter Date Encounter Type Care Provider Facility Start: 02-01-2025 End: 02-01-2025 Telephone encounter Veronica Butt [place] [facility] Comment on above: PFT Appt Start: 01-08-2025 End: 01-08-2025 Office outpatient visit 40 minutes Veronica Butt [employer] Work Phone: [facility] Comment on above: Reactive airway dise ase without complication, unspecified asthma severity, unspecified whether persistent (HCC) (Primary Dx); Pulmonary nodule seen on imaging study; Environmental and seasonal allergies; Tobacco use disorder; Body mass index (BMI) 39.0-39.9, adult Start: 01-08-2025 End: 01-08-2025 ambulatory UNKNOWN PROVIDER Facility:[facility] Start: 12-25-2024 End: 12-25-2024 Letter encounter Malena Alejandro RN [facility] Start: 12-25-2024 End: 12-25-2024 Telephone encounter Malena Alejandro RN [facility] Comment on above: APPOINTMENT SCHEDULI NG Start: 12-07-2024 End: 12-07-2024 Evaluation and management of inpatient PROVIDER NON-EPICCARE Facility:[facility] Start: 12-02-2024 End: 12-02-2024 Emergency department patient visit Davie Carroll MD Work Phone: [facility] Comment on above: Headache (JIN x24 hrs w/ vision changes ) Start: 12-02-2024 ambulatory PROVIDER NON-EPICCARE Facility:[facility] Start: 12-02-2024 Emergency department patient visit PROVIDER NON-EPICCARE Facility:[facility] Start: 11-24-2024 End: 11-24-2024 ambulatory Brooke Wu RN [facility] Care Management/Patient Access Comment on above: COPD FU CALL-CONTACT REACHED Start: 11-17-2024 End: 11-18-2024 Office outpatient new 45 minutes Anna Sanders PA-C Work Phone: [facility] Comment on above: COPD exacerbation (H CC) (Primary Dx); 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 artery (HCC); Gastroesophageal reflux disease with esophagitis without hemorrhage Start: 11-17-2024 End: 11-18-2024 ambulatory Brooke Wu RN [facility] Management/Patient Access Comment on above: COPD FU CALL-UNABLE TO LEAVE MESSAGE Start: 11-01-2024 End: 11-01-2024 Telephone encounter Karthik Fried RT [facility] Comment on above: Pulm Rehab referral Start: 10-27-2024 End: 10-27-2024 ambulatory Brooke Wu RN [facility] Care Management/Patient Access Start: 10-27-2024 End: 10-27-2024 Follow-up encounter Brooke Wu RN [facility] Care Management/Patient Access Comment on above: Hospital follow-up; Transitional Care Management (COPD DC 10/26/24) Start: 10-26-2024 End: 10-26-2024 Orders Only Aura Wagner MD Work Phone: [facility] Pulmonary Start: 10-25-2024 End: 12-25-2024 Follow-up encounter Pilar Snell [facility] Start: 10-24-2024 End: 10-26-2024 Evaluation and management of inpatient Aura Wagner MD Work Phone: [address] A Comment on above: COPD exacerbation (H CC) (Primary Dx); 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 artery (HCC); Exacerbation of intermittent asthma, unspecified asthma severity (HCC); Difficulty walking; Decreased mobility and endurance Start: 10-24-2024 End: 10-24-2024 Emergency department patient visit PILAR STEELE Facility:[facility] Start: 10-24-2024 Evaluation and management of inpatient BRIAN ANGLIN Facility:[facility] Start: 09-12-2024 End: 09-12-2024 ambulatory Varun Pratt PT [facility] Phone[facility] Comment on above: S/P lumbar laminecto my (Primary Dx) Start: 09-05-2024 End: 09-05-2024 Telephone encounter Lois Kee MD Work Phone: [facility] Start: 08-28-2024 End: 08-28-2024 Telephone encounter Lois Kee MD Work Phone: [facility] Comment on above: Internal Referrals/r esources Start: 08-25-2024 End: 08-25-2024 Orders Only Lois Kee MD Work Phone: [facility] Comment on above: S/P lumbar laminecto my (Primary Dx) Start: 08-10-2024 End: 08-10-2024 Postop follow up visit related to original px Lois Kee MD Work Phone: [facility] Comment on above: S/P lumbar laminecto my (Primary Dx) Start: 08-10-2024 End: 08-10-2024 ambulatory [facility] Facility[facility] Start: 08-02-2024 End: 08-02-2024 Refill Lois Kee MD Work Phone: [facility] Comment on above: Refill Request Start: 07-28-2024 End: 07-29-2024 Evaluation and management of inpatient [facility] Facility:[facility] Start: 07-27-2024 End: 07-27-2024 Telephone encounter Lois Kee MD Work Phone: [facility] Comment on above: Preparations For Sukhjinder jen Start: 07-20-2024 End: 07-21-2024 Telephone encounter Shelton Aguilera MD Work Phone: Pulmonary Medicine Comment on above: Medical Clearance Start: 07-17-2024 End: 07-17-2024 Telephone encounter Polly Mcfarlane APRN.PRODUCTION MACHINE SHOP SUPERVISOR Work Phone: [place] [facility] Start: 07-14-2024 End: 07-14-2024 Preprocedural examination done Pst 1 [facility] Work Phone: Start: 07-14-2024 End: 07-14-2024 Orders Only Lois Kee MD Work Phone: [facility] Comment on above: Spinal stenosis of [...] examination done Lois Kee MD Work Phone: [facility] Start: 07-10-2024 Encounter for other preprocedural examination [facility] Start: 06-21-2024 End: 06-21-2024 Telephone encounter Lois Kee MD Work Phone: [facility] Comment on above: Preparations For Sukhjinder jen Start: 06-19-2024 End: 06-19-2024 Orders Only Lois Kee MD Work Phone: [facility] Comment on above: Spinal stenosis of l umbar region with neurogenic claudication (Primary Dx) Start: 06-08-2024 End: 06-08-2024 Telephone encounter Shelton Aguilera MD Work Phone: Pulmonary Medicine Comment on above: FYI-No Action Needed Start: 06-08-2024 End: 06-08-2024 ambulatory [facility] Facility[facility] Start: 06-08-2024 End: 06-08-2024 Subsequent hospital visit by physician [facility] (I-Stat) Work Phone: Cat Scan Start: 06-05-2024 End: 06-05-2024 Office outpatient visit 25 minutes Lois Kee MD Work Phone: [facility] Comment on above: Spinal stenosis of l umbar region with neurogenic claudication (Primary Dx) Start: 06-05-2024 End: 06-05-2024 ambulatory [facility] Facility[facility] Start: 06-05-2024 End: 06-05-2024 Subsequent hospital visit by physician [facility] Maintenance Team Member [facility] [employer] MACHINIST Comment on above: Low back pain, unspe cified back pain laterality, unspecified chronicity, unspecified whether sciatica present [M54.50] Start: 05-31-2024 End: 05-31-2024 Telephone encounter Shelton Aguilera MD Work Phone: Pulmonary Medicine Comment on above: FYI-No Action Needed Start: 05-11-2024 End: 05-11-2024 ambulatory [facility] Facility[facility] Start: 05-11-2024 End: 05-11-2024 Patient encounter procedure Bertha Schumacher APRN.PRODUCTION MACHINE SHOP SUPERVISOR Work Phone: [facility] Comment on above: APPOINTMENT CANCELLE D (Primary Dx) Start: 05-11-2024 End: 05-11-2024 Telemedicine consultation with patient Bertha Schumacher APRN.PRODUCTION MACHINE SHOP SUPERVISOR Work Phone: [facility] Start: 05-10-2024 End: 05-10-2024 Patient encounter procedure Everton Decker MD Work Phone: [facility] Start: 05-10-2024 End: 05-10-2024 ambulatory Everton Decker MD Work Phone: [facility] Comment on above: Injections (MBB); Ba ck Pain (LOWER BILATERAL) Start: 04-27-2024 End: 04-27-2024 Telemedicine consultation with patient Bertha Schumacher APRN.PRODUCTION MACHINE SHOP SUPERVISOR Work Phone: [facility] Start: 04-27-2024 End: 04-27-2024 ambulatory Bertha Schumacher APRNCoraPRODUCTION MACHINE SHOP SUPERVISOR Work Phone: [facility] Comment on above: Lumbar spondylosis ( Primary Dx); Spinal stenosis, lumbar region, without neurogenic claudication Start: 04-27-2024 End: 04-28-2024 Telephone encounter Guanaco Razo MD, PhD Work Phone: [facility] Comment on above: Erroneous encounter- disregard Start: 04-26-2024 End: 04-26-2024 Patient encounter procedure Everton Decker MD Work Phone: [facility] Start: 04-26-2024 End: 04-26-2024 ambulatory Everton Decker MD Work Phone: [facility] Comment on above: Procedure (MBB) Start: 04-06-2024 End: 04-06-2024 Office outpatient new 45 minutes Lois Kee MD Work Phone: [facility] Comment on above: Low back pain, unspe cified back pain laterality, unspecified chronicity, unspecified whether sciatica present (Primary Dx) Start: 04-06-2024 End: 04-06-2024 ambulatory [facility] Facility:[facility] Start: 04-05-2024 End: 04-05-2024 E-mail encounter from caregiver Lois Kee MD Work Phone: [facility] Start: 04-05-2024 End: 04-05-2024 Patient encounter procedure Lois Kee MD Work Phone: [facility] Comment on above: xrays for upcoming a ppointment Start: 03-31-2024 End: 03-31-2024 Telephone encounter Dhiraj Herr MD Work Phone: [facility] Comment on above: injection questions Start: 03-30-2024 End: 03-30-2024 Telephone encounter Dhiraj Herr MD Work Phone: [facility] Comment on above: Appointment Start: 03-30-2024 End: 03-30-2024 Telemedicine consultation with patient Bertha Schumacher APRN.PRODUCTION MACHINE SHOP SUPERVISOR Work Phone: [facility] Start: 03-30-2024 End: 03-30-2024 ambulatory Bertha Schumacher APRN.PRODUCTION MACHINE SHOP SUPERVISOR Work Phone: [facility] Comment on above: Lumbar spondylosis ( Primary Dx); Lumbar radiculopathy; Spinal stenosis, lumbar region, without neurogenic claudication Start: 03-17-2024 End: 03-17-2024 Telephone encounter Everton Decker MD Work Phone: [facility] Comment on above: Procedure Follow Up Start: 03-16-2024 End: 03-16-2024 Telephone encounter Bertha Schumacher APRN.PRODUCTION MACHINE SHOP SUPERVISOR Work Phone: [facility] Comment on above: Orders Start: 03-16-2024 End: 03-16-2024 Patient encounter procedure Everton Decker MD Work Phone: [facility] Start: 03-16-2024 End: 03-16-2024 ambulatory Everton Decker MD Work Phone: [facility] Comment on above: Procedure Start: 03-15-2024 End: 03-15-2024 Telephone encounter Everton Decker MD Work Phone: [facility] Comment on above: Patient Question Start: 03-13-2024 End: 03-13-2024 Telephone encounter Yashira Gonsales APRN.PRODUCTION MACHINE SHOP SUPERVISOR Work Phone: [facility] Comment on above: Insurance Denial Start: 02-25-2024 Telephone encounter Bertha rees APRN.PRODUCTION MACHINE SHOP SUPERVISOR Work Phone: [facility] Comment on above: Appointment anticoagulation marta er Injections (question s) Start: 02-24-2024 End: 02-24-2024 Telemedicine consultation with patient Bertha Vincent ESTRADA.PRODUCTION MACHINE SHOP SUPERVISOR Work Phone: [facility] Start: 02-24-2024 End: 02-24-2024 ambulatory Bertha Childssh CORN[employer]B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 Work Phone: [facility] Comment on above: Lumbar spondylosis ( Primary Dx); Spinal 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; Chronic bilateral low back pain with sciatica, sciatica laterality unspecified Start: 01-24-2024 ambulatory Bertha Catherinesh [employer]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 Work Phone: [facility] Comment on above: Denial of Medical Se rvice Start: 01-17-2024 Telephone encounter Shelton Aguilera MD Work Phone: Pulmonology [facility] Comment on above: Illness ([place] RN covering urgent pulm sypmtom calls) Start: 01-16-2024 End: 01-16-2024 Letter encounter [facility] Start: 01-11-2024 Refill Shelton Aguilera MD Work Phone: Pulmonary Medicine Comment on above: Refill Request Start: 01-06-2024 Refill Shelton Aguilera MD Work Phone: Pulmonary Medicine Comment on above: Refill Request Start: 01-03-2024 Telephone encounter Alen raza MD Work Phone: Pulmonary Medicine Comment on above: Results Start: 12-29-2023 ambulatory [facility] ty:[facility] Start: 12-29-2023 End: 12-29-2023 Subsequent hospital visit by physician [facility] Work Phone: [facility] Comment on above: Lung nodules [R91.8] Start: 12-22-2023 End: 12-22-2023 Telemedicine consultation with patient Yashira Gonsales CORNCOB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 Work Phone: [facility] Start: 12-22-2023 End: 12-22-2023 ambulatory Yashira Gonsales [employer]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 Work Phone: [facility] Comment on above: Lumbar spondylosis ( Primary Dx) Start: 12-17-2023 Telephone encounter Dhiraj Herr MD Work Phone: [facility] Comment on above: Procedure Follow Up (MBB) Start: 12-16-2023 End: 12-16-2023 Patient encounter procedure Dhiraj Herr MD Work Phone: [facility] Start: 12-16-2023 End: 12-16-2023 ambulatory Dhiraj Herr MD Work Phone: [facility] Comment on above: Procedure (Mbb ); Ba ck Pain (Lower - bilateral - right is worse) Start: 12-14-2023 Telephone encounter Bertha rees CORNCOB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 Work Phone: [facility] Comment on above: Insurance Denial Start: 12-10-2023 Orders Only Shelton Aguilera MD Work Phone: Pulmonary Medicine Comment on above: Severe persistent as thma, unspecified whether complicated (Primary Dx) Start: 12-01-2023 End: 12-02-2023 ambulatory [facility] Facility:[facility] Start: 11-29-2023 ambulatory Bertha Prebish CORNCOB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 Work Phone: [facility] Start: 11-29-2023 Patient encounter procedure Bertha Prebish CORNCOB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 Work Phone: [facility] Comment on above: Appointment Start: 11-25-2023 End: 11-25-2023 Telemedicine consultation with patient Bertha Prebish CORNCOB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 Work Phone: [facility] Start: 11-25-2023 End: 11-25-2023 ambulatory Bertha Prebish [employer]NCOB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 Work Phone: [facility] Comment on above: Lumbar spondylosis ( Primary Dx); Spinal 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 Start: 11-22-2023 ambulatory [facility] Comment on above: Home Sleep Study Start: 11-22-2023 E-mail encounter raya m caregiver [facility] Start: 11-21-2023 Telephone encounter Bertha rees CORNCOB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 Work Phone: [facility] Start: 11-19-2023 End: 11-19-2023 Subsequent hospital visit by physician [facility] (I-Stat/1.5t) Radiology Comment on above: [...] Start: 10-29-2023 End: 10-29-2023 ambulatory Bertha Schumacher SEAN.PRODUCTION MACHINE SHOP SUPERVISOR Work Phone: [facility] Comment on above: Lumbar spondylosis ( Primary Dx); Chronic bilateral low back pain with sciatica, sciatica laterality unspecified; Spinal 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 Start: 10-29-2023 End: 10-29-2023 Telemedicine consultation with patient Bertha Schumacher APRN.PRODUCTION MACHINE SHOP SUPERVISOR Work Phone: [facility] [phone] Start: 10-28-2023 End: 10-28-2023 ambulatory Dhiraj Herr MD Work Phone: [facility] Comment on above: Procedure (MBNB L4/L 5 S1) Start: 10-28-2023 End: 10-28-2023 Patient encounter procedure Dhiraj Herr MD Work Phone: [place] [facility] Start: 10-19-2023 Refill Shelton Aguilera MD Work Phone: Pulmonary Medicine Comment on above: Refill Request Start: 10-11-2023 Refill Shelton Aguilera MD Work Phone: Pulmonary Medicine Comment on above: Refill Request Start: 09-28-2023 ambulatory Bertha Schumacher CORNCOB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 Work Phone: [facility] Comment on above: Prednisone for pain relief Start: 09-23-2023 Telephone encounter Berthasandrine rees CORNCOB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 Work Phone: [facility] Comment on above: Injection Questions Start: 09-23-2023 End: 09-23-2023 Office outpatient new 45 minutes Bertha Schumacher CORNCOB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 Work Phone: [facility] Comment on above: Lumbar spondylosis ( Primary Dx); Chronic bilateral low back pain with sciatica, sciatica laterality unspecified Start: 09-02-2023 ambulatory UNKNOWN PROVIDER Facili ty:[facility] Start: 09-02-2023 End: 09-02-2023 Subsequent hospital visit by physician Ct [facility] Radiology Comment on above: Wheezing [R06.2] Start: 09-02-2023 End: 09-02-2023 ambulatory [facility] Work Phone: Pulmonary Medicine Comment on above: Spirometry Start: 09-02-2023 End: 09-02-2023 Patient encounter procedure Pulm Fct Lab [facility] Work Phone: [facility] Start: 08-26-2023 Telephone encounter Shelton Aguilera MD Work Phone: Pulmonary Medicine Comment on above: Results Start: 08-24-2023 Telephone encounter Shelton Aguilera MD Work Phone: Pulmonary Medicine Comment on above: FYI-No Action Needed Results Start: 08-20-2023 Telephone encounter Shelton Aguilera MD Work Phone: Pulmonary Medicine Comment on above: FYI-No Action Needed Start: 08-20-2023 End: 08-20-2023 ambulatory [facility] Work Phone: Pulmonary Medicine Comment on above: Spirometry Start: 08-20-2023 End: 08-20-2023 Patient encounter procedure Pulm Lab [place] Work Phone: [facility] [place] [facility] Start: 08-04-2023 End: 08-04-2023 ambulatory [facility] Work Phone: Start: 08-04-2023 End: 08-04-2023 Patient encounter procedure [facility], [facility] Work Phone: Start: 06-11-2023 End: 06-11-2023 ambulatory Juarez Dewitt Facility:[facility] Start: 06-11-2023 Registered [facility] Work Phone: Start: 02-24-2023 Encounter for genera l adult medical examination without abnormal findings [facility] Start: 02-20-2023 End: 02-20-2023 ambulatory [facility] Work Phone: Start: 02-20-2023 End: 02-20-2023 Patient encounter procedure [facility] Work Phone: Start: 10-26-2022 Letter encounter [facility] Start: 03-22-2022 End: 03-22-2022 Emergency department patient visit [facility] Start: 02-07-2022 End: 02-07-2022 Patient encounter procedure [facility] Start: 01-31-2022 End: 01-31-2022 Patient encounter procedure [facility] Start: 10-20-2021 Letter encounter [facility] Procedures Date Procedure Procedure Detail Performing Clinician Start: 01-08-2025 Assay of gammaglobulin ige Veronica Butt APRN-PRODUCTION MACHINE SHOP SUPERVISOR Work Phone: Start: 01-08-2025 Inhaled allergen mix RAST Veronica Butt APRN-PRODUCTION MACHINE SHOP SUPERVISOR Work Phone: Start: 12-02-2024 Ct angiography head [...] Speci men Type: BLOOD SPECIMEN Ordering Facility: [facility] Address: [address] [place] [id number] Performed By: #### T [id number] #### [facility] CLIA [id number] [address] [place] [address] [facility] [place] Start: 06-08-2024 Ct thorax w/o contra st material [facility] Provider Start: 12-29-2023 Echo tthrc r-t 2d w/wom-mode compl spec&colr d Shelton Aguilera MD Work Phone: Start: 11-19-2023 Mri spinal canal lum bar w/o contrast material Bertha Schumacher CORNCOB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 Work Phone: Start: 09-02-2023 Nitric oxide gas [...] panel - S tara or Plasma [facility] Work Phone: Plan of Treatment Date Care Activity Detail Author Start: 06-14-2033 Tetanus vaccination Tetanus (Td or Tdap) Booster [facility] Start: 06-14-2033 Urine microalbumin profile DTaP,Tdap,Td Vaccine (2 - Td or Tdap) [facility] Start: 02-21-2028 Lipid panel Cholesterol [facility] Start: 10-26-2027 Diabetes Screening Diabetes Screening [facility] Start: 07-29-2027 Diabetes Screening Diabetes Screening [facility] Start: 07-14-2027 Diabetes Screening Diabetes Screening [facility] Start: 12-01-2026 Diabetes Screening Diabetes Screening [facility] Start: 10-24-2025 Hemoglobin A1c measurement Hemoglobin A1C [facility] Start: 07-23-2025 End: 07-23-2025 Patient encounter procedure 07/23/2025 8:20 AM EST Office Visit [facility] Pulmonary [address] [place] [address] Veronica Butt APRN-PRODUCTION MACHINE SHOP SUPERVISOR [address] [place] [address] [facility] Start: 05-21-2025 End: 05-21-2025 Patient encounter procedure 05/21/2025 8:00 AM EST Appointment [facility] Rad[facility] [address] [place] [address] [facility] [address] Start: 05-19-2025 End: 01-08-2026 CT Chest WO contrast CT CHEST W/O CONTRAST Imaging Routine Pulmonary nodule seen on imaging study Expected: 05/19/2025 (Approximate), Expires: 01/08/2026 [facility] Work Phone: Comment on above: Expected: 05/19/2025 (Approximate), Expi res: 01/08/2026 Start: 04-18-2025 Influenza vaccination Influenza Vaccine (#1) [facility] Start: 03-19-2025 Influenza vaccination Influenza Vaccine (Season Ended) [facility] Start: 02-02-2025 End: 02-02-2025 Professional / ancillary services management 02/02/2025 8:00 AM EDT Pulmonary Ancillary Visit [facility] Pulmonary Labs [address] [place] [address] [facility] Start: 01-18-2025 End: 01-18-2025 Patient encounter procedure 01/18/2025 9:40 AM EDT Office Visit [facility] [address] [place] [id number] Anna Sanders PA-C [address] [place] [address] [facility] Start: 01-08-2025 End: 01-08-2025 Patient encounter procedure 01/08/2025 10:20 AM EDT Office Visit [facility] Pulmonary [address] [place] [address] Veronica Butt APRN-PRODUCTION MACHINE SHOP SUPERVISOR [address] [place] [address] [facility] Start: 11-17-2024 End: 11-17-2024 Patient encounter procedure 11/17/2024 2:00 PM EDT Office Visit [facility] [address] [place] [address] Anna Sanders PA-C [address] [place] [address] [facility] Start: 10-24-2024 Welcome to Medicare Visit (G0402) Welcome to Medicare Visit (G0402) [facility] Start: 10-19-2024 End: 10-19-2024 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 Comment on above: S/P lumbar laminectomy [Z98.890] Start: 09-18-2024 End: 09-18-2024 Patient encounter procedure 09/18/2024 9:15 AM EST Office Visit [place] [id number] [place] [address] Lois Kee MD [address] [place] [address] post op [facility] Comment on above: post op Start: 09-14-2024 End: 09-14-2024 Patient encounter procedure 09/14/2024 2:15 PM EST Office Visit [address] [facility] [place] [address] Lois Kee MD [address] [place] [address] post op [facility] Comment on above: post op Start: 09-12-2024 End: 09-12-2024 ambulatory 09/12/2024 8:30 AM EST OT/PT/Speech Visit [place] [facility] [address] [place] [address] Varun Pratt, PT [address] [facility] [place] [address] S/P lumbar laminectomy [Z98.890 [facility] Comment on above: S/P lumbar laminectomy [Z98.890 Start: 08-10-2024 End: 08-10-2024 Patient encounter procedure 08/10/2024 1:00 PM EST Office Visit [address] [place] [address] Lois Kee MD [address] [place], [place] [address] [place] [address] post op [facility] Comment on above: post op Start: 07-28-2024 End: 07-28-2024 Admission to same day surgery center 07/28/2024 10:45 AM EST - 07/28/2024 1:30 PM EST Surgery [place] SURGERY OR [address] [facility] [place] [address] Lois Kee MD [address] [place] [place] [address] DECOMPRESSION LAMINECTOMY LUMBAR POSTERIOR LEVEL 1 AK [...] EST Hospital Encounter [place] SURG[facility] [address] [facility] [place] [address] Lois Kee MD [address] [facility] [address] [place] [address] Spinal stenosis of lumbar region with neurogenic claudication [M48.062] [place] SUR[facility] [place] Comment on above: Spinal stenosis of lumbar region with ne urogenic claudication [M48.062] Start: 07-19-2024 Advance Directive Discussion Advance Directive Discussion [facility] Start: 07-14-2024 End: 10-13-2024 aPTT in Platelet poor plasma by Coagulation assay ACTIVATED PARTIAL THROMBOPLASTIN TIME Lab Routine Spinal stenosis of lumbar region with neurogenic claudication Abnormal coagulation profile Expected: 07/14/2024, Expires: 10/13/2024 [facility] Comment on above: Expected: 07/14/2024, Expires: Start: 07-14-2024 End: 10-13-2024 Bacteria identified in Urine by Culture URINE CULTURE Microbiology Routine Spinal stenosis of lumbar region with neurogenic claudication Other abnormal findings in urine Expected: 07/14/2024, Expires: 10/13/2024 [facility] Comment on above: Expected: 07/14/2024, Expires: Start: 07-14-2024 End: 10-13-2024 CBC panel - Blood by Automated count COMPLETE BLOOD COUNT Lab Routine Spinal stenosis of lumbar region with neurogenic claudication Other specified abnormal findings of blood chemistry Expected: 07/14/2024, Expires: 10/13/2024 [facility] Comment on above: Expected: 07/14/2024, Expires: Start: 07-14-2024 End: 10-13-2024 Comprehensive metabolic 2000 panel - Serum or Plasma COMPREHENSIVE METABOLIC PANEL Lab Routine Spinal stenosis of lumbar region with neurogenic claudication Expected: 07/14/2024, Expires: 10/13/2024 [facility] Comment on above: Expected: 07/14/2024, Expires: Start: 07-14-2024 End: 10-13-2024 PT panel - Platelet poor plasma by Coagulation assay PROTHROMBIN TIME Lab Routine Spinal stenosis of lumbar region with neurogenic claudication Abnormal coagulation profile Expected: 07/14/2024, Expires: 10/13/2024 [facility] Comment on above: Expected: 07/14/2024, Expires: Start: 07-14-2024 End: 10-13-2024 STAPHYLOCOCCUS AUREUS & MRSA SCREEN, PCR, NASAL STAPHYLOCOCCUS AUREUS & MRSA SCREEN, PCR, NASAL Lab Routine Spinal stenosis of lumbar region with neurogenic claudication Expected: 07/14/2024, Expires: 10/13/2024 [facility] Comment on above: Expected: 07/14/2024, Expires: Start: 07-14-2024 End: 10-13-2024 TYPE AND SCREEN,30 DAY TYPE AND SCREEN,30 DAY Blood Bank Routine Spinal stenosis of lumbar region with neurogenic claudication Expected: 07/14/2024, Expires: 10/13/2024 [facility] Comment on above: Expected: 07/14/2024, Expires: Start: 07-14-2024 End: 10-13-2024 Urinalysis complete panel - Urine URINALYSIS, WITH MICROSCOPIC Lab Routine Spinal stenosis of lumbar region with neurogenic claudication Expected: 07/14/2024, Expires: 10/13/2024 [facility] Comment on above: Expected: 07/14/2024, Expires: Start: 07-14-2024 End: 07-14-2024 ambulatory 07/14/2024 1:00 PM EST PAT Pre Surgical Testing [address] [place] [address] L2-L4 Laminectomy Pre Surgical Testing Comment on above: L2-L4 Laminectomy Start: 06-08-2024 End: 06-08-2024 Patient encounter procedure 06/08/2024 8:00 AM EST Appointment Cat Scan [address] [place] [address] CT chest w/o in scanned docs Cat Scan Comment on above: CT chest w/o in scanned docs Start: 06-06-2024 End: 06-06-2024 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 Comment on above: XR LUMBAR 2 MO F/U Start: 06-05-2024 End: 06-05-2024 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 Comment on above: XR LUMBAR 2 MO F/U XR LUMBAR AP/LAT/FLE X/EXT Start: 05-11-2024 End: 05-11-2024 Follow-up encounter 05/11/2024 3:15 PM EDT [facility] [address] [place] [address] Bertha Schumacher APRN.PRODUCTION MACHINE SHOP SUPERVISOR [address] [place] [address] MBB follow up 2 of 2 [facility] Comment on above: MBB follow up 2 of 2 Start: 05-10-2024 End: 05-10-2024 ambulatory [facility] Comment on above: B/L MBNB L3-L4, L4-L5, w fluoro Medial Branch Block (Diagnostic only, NO STEROIDS) under fluoroscopic guidance BILATERAL SIDES at L3-4 and L4-5 (2 OF 2) Start: 04-27-2024 End: 04-27-2024 Follow-up encounter 04/27/2024 3:15 PM EDT [facility] [address] [place] [address] Bertha Schumacher APRN.PRODUCTION MACHINE SHOP SUPERVISOR [address] [place] [id number] MBB follow up 1 of 2 [facility] Comment on above: MBB follow up 1 of 2 Start: 04-26-2024 End: 04-26-2024 ambulatory 04/26/2024 7:50 AM EDT Procedure [facility] [address] [place] [address] Everton Decker MD [address] [place], [place] [id number] B/L MBNB L3-L4, L4-L5, w fluoro [facility] Comment on above: B/L MBNB L3-L4, L4-L5, w fluoro Start: 04-24-2024 Lipid panel [facility] Start: 2024 Abdominal aortic aneurysm screening Abdominal Aortic Aneurysm Imaging [facility] Start: 2024 Advance Directive Discussion Advance Directive Discussion [facility] Start: 2024 Pneumococcal vaccination Pneumococcal Vaccine (3 of 3 - PPSV23 or PCV20) [facility] Start: 2024 Pneumococcal Vaccine: 65+ (3 of 3 - PPSV23 or PCV20) Pneumococcal Vaccine: 65+ (3 of 3 - PPSV23 or PCV20) [facility] Start: 04-06-2024 End: 04-06-2024 Patient encounter procedure 04/06/2024 9:30 AM EDT Office Visit [place] [id number] [facility] [place] [id number] Lois Kee MD [address] [place], [place] [phone] lower back pain [facility] Comment on above: lower back pain Start: 03-30-2024 End: 03-30-2024 Follow-up encounter [facility] Comment on above: Follow up from ANASTASIA FOLLOW UP FROM ILESI L4-L5 Start: 03-19-2024 Covid-19 Vaccine ( season) Covid-19 Vaccine ( season) [facility] Start: 03-19-2024 Covid-19 Vaccine ( season) Covid-19 Vaccine ( season) [facility] Start: 03-19-2024 Influenza vaccination [facility] Start: 03-16-2024 End: 03-16-2024 ambulatory [facility] Comment on above: PENDING - CAD ILESI L4-L5 W Fluoro; PLAV IX OKAY TO HOLD FOR 7 DAYS FC AUTH GOOD - CAD I LESI L4-L5 W Fluoro; PLAVIX OKAY TO HOLD FOR 7 DAYS Start: 02-10-2024 End: 02-10-2024 Patient encounter procedure 02/10/2024 9:15 AM EDT Office Visit Pulmonary Medicine [address] [place] [address] Shelton Aguilera MD [address] [place] [address] lung nodules 3 mos followup Pulmonary Medicine Comment on above: lung nodules 3 mos followup Start: 01-10-2024 End: 01-10-2024 Patient encounter procedure 01/10/2024 1:00 PM EDT Office Visit Allergy [address] [address] Anna Abbott MD [address] [place] [address] allergies Allergy Comment on above: allergies Start: 01-04-2024 End: 01-04-2024 Follow-up encounter 01/04/2024 1:45 PM EDT [facility] [place] [address] Catherine Champion APRN.PRODUCTION MACHINE SHOP SUPERVISOR [address] [place] [id number] Follow up from MBB #2 [facility] Comment on above: Follow up from MBB #2 Start: 12-31-2023 End: 12-31-2023 ambulatory [facility] Comment on above: B/L MBNB L4-L5, L5-S1 w fluoro X2 PENDING - CAD B/L MB NB L4-L5, L5-S1 w fluoro; PLAVIX - NO HOLD NEEDED (2 OF 2) DENIED - CAD B/L MBN B L4-L5, L5-S1 w fluoro; PLAVIX - NO HOLD NEEDED (2 OF 2) Start: 12-29-2023 End: 12-29-2023 Patient encounter procedure [facility] Comment on above: Lung nodules [R91.8] Start: 12-22-2023 End: 12-22-2023 Follow-up encounter [facility] Comment on above: Follow up from MBB #1 Follow up from MBB # 1 (Please let Bertha know when this is completed so she can do the appeal letter) Start: 12-16-2023 End: 12-16-2023 ambulatory [facility] Comment on above: B/L MBNB L4-L5, L5-S1 w fluoro X2 AUTH GOOD - CAD B/L MBNB L4-L5, L5-S1 w fluoro; PLAVIX - NO HOLD NEEDED (1 OF 2) Start: 11-25-2023 End: 11-25-2023 Follow-up encounter 11/25/2023 2:15 PM EDT [facility] [address] [place] [address] 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, Bertha, [employer]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 [address] [place] [address] Follow up from MRI [facility] Comment on above: Follow up from MRI Start: 11-19-2023 End: 11-19-2023 Patient encounter procedure 11/19/2023 12:00 PM EDT [facility]ment [facility] [address] [facility] [place] [id number] MRI LUMBAR SPINE WO IVCON Radiology Comment on above: MRI LUMBAR SPINE WO IVCON Start: 07-19-2023 Depression Assessment Depression Assessment [facility] Start: 03-19-2023 Covid-19 Vaccine ( season) Covid-19 Vaccine ( season) [facility] Start: 03-19-2023 Influenza vaccination Influenza Vaccine (#1) [facility] Start: 06-04-2022 Pneumococcal vaccination Pneumococcal Vaccine(s) (50+ yrs) (3 of 3 - PCV20 or PCV21) [facility] Start: 06-04-2022 Pneumococcal Vaccine: 50+ (3 of 3 - PCV20 or PCV21) Pneumococcal Vaccine: 50+ (3 of 3 - PCV20 or PCV21) [facility] Start: 04-24-2022 Diabetes Screening Diabetes Screening [facility] Start: 2019 Hepatitis B (HBV) Vaccine (optional start 60+ years) Hepatitis B (HBV) Vaccine (optional start 60+ years) [facility] Start: 2019 RSV Vaccine (1 - 1-dose 60+ series) RSV Vaccine (1 - 1-dose 60+ series) [facility] Start: 2019 RSV Vaccine (1 - Risk 60-74 years 1-dose series) RSV Vaccine (1 - Risk 60-74 years 1-dose series) [facility] Start: 2019 RSV vaccine (adult) (1 - Risk 60-74 years 1-dose series) RSV vaccine (adult) (1 - Risk 60-74 years 1-dose series) [facility] Start: 2019 RSV vaccine (optional 60+ years) RSV vaccine (optional 60+ years) [facility] Start: 2014 Prostate specific antigen measurement Prostate Cancer Screening Discussion [facility] Start: 2009 Measurement of occult blood in single stool specimen [facility] Start: 2009 Screening for malignant neoplasm of colon CRC Screening [facility] Start: 2009 Shingrix Vaccine (1 of 2) Shingrix Vaccine (1 of 2) [facility] Start: 2009 Varicella-zoster vaccine (product) Shingles (RZV) Vaccine (1 of 2) [facility] Start: 2004 Prostate specific antigen measurement Prostate Cancer Screening Discussion [facility] Start: 2004 Screening for malignant neoplasm of colon [facility] Start: 1989 Zoledronic acid therapy Alpha-1 Antitrypsin Deficiency Screening [facility] Start: 1978 Hepatitis A (HAV) Vaccine (optional start 19+ years) Hepatitis A (HAV) Vaccine (optional start 19+ years) [facility] Start: 1977 Annual PCP Team Chronic Disease Visit Annual PCP Team Chronic Disease Visit [facility] Start: 1977 Anxiety Screening Anxiety Screening [facility] Start: 1977 BP Controlled (<130/80) BP Controlled (<130/80) [facility] Start: 1977 Depression Screening Depression Screening [facility] Start: 1977 [facility]atitis [facility] Start: 1977 HIV screening HIV Screening [facility] Start: 1977 Tetanus + diphtheria + acellular pertussis vaccine (product) Tdap Booster [facility] Start: 1974 HIV screening [facility] Test [facility] Start: 1964 COVID-19 Vaccine (1) COVID-19 Vaccine (1) [facility] Start: 1959 COVID-19 Vaccine (#1) COVID-19 Vaccine (#1) [facility] Start: 1959 Abdominal aortic aneurysm screening Abdominal Aortic Aneurysm Screening [facility] Start: 1959 Prostate specific antigen measurement Prostate Cancer Screening (shared decision making) [facility] Start: 1959 Screening for malignant neoplasm of colon Colonoscopy [facility] Assay of magnesium MAGNESIUM Lab Routine Daily until discontinued starting 10/25/2024, 2 completed [facility] Comment on above: Daily until discontinued starting 2024, 2 completed Basic metabolic 2000 panel - Serum or Plasma BASIC METABOLIC PANEL Lab Routine Daily until discontinued starting 10/25/2024, 2 completed [facility] [employer] Work Phone: Comment on above: Daily until discontinued starting 2024, 2 completed CBC W Auto Different ial panel - Blood COMPLETE BLOOD COUNT W/DIFF Lab Routine Daily until discontinued starting 10/25/2024, 2 completed [facility] Comment on above: Daily until discontinued starting 2024, [address] Chest WO contrast CT CHEST WO IVCON Radiology Routine Wheezing 09/02/2023 1:22 PM EST [facility] Work Phone: End: 12-10-2024 CT Chest WO contrast CT CHEST WO IVCON Radiology Routine Lung nodules 1 Occurrences starting 11/11/2023 until 12/10/2024 [facility] Work Phone: Comment on above: 1 Occurrences starting 11/11/2023 until 12/10/2024 CT Chest WO contrast CT CHEST WO IVCON Radiology Routine Lung nodules 12/29/2023 11:14 AM EDT [facility] Work Phone: End: 07-14-2025 ECG COMPLETE ECG COMPLETE ECG Routine Spinal stenosis of lumbar region with neurogenic claudication 1 Occurrences starting 07/14/2024 until 07/14/2025 [facility] Comment on above: 1 Occurrences starting 07/14/2024 until 07/14/2025 Ecg routine ecg w/le ast 12 lds trcg only w/o i&r EKG 12 LEAD - PERFORM MUSE Routine COPD exacerbation (HCC) Ordered: 10/26/2024 [facility] Comment on above: Ordered: 10/26/2024 End: 11-10-2024 Echocardiography ECHO Cardiology Routine Lung nodules Severe persistent asthma, unspecified whether complicated 1 Occurrences starting 11/11/2023 until 11/10/2024 [facility] Comment on above: 1 Occurrences starting 11/11/2023 until 11/10/2024 End: 10-24-2024 EXTRA TUBE EXTRA TUBE Lab Routine One time for 1 Occurrences starting 10/24/2024 until 10/24/2024 [facility] [employer] Work Phone: Comment on above: One time for 1 Occurrences starting 02/2025 until 10/24/2024 H&P for surgery H&P FOR SURGERY Procedures Routine Spinal stenosis of lumbar region with neurogenic claudication Ordered: 07/14/2024 [facility] Work Phone: Comment on above: Ordered: 07/14/2024 End: 11-10-2024 HOME SLEEP APNEA TEST (HSAT) HOME SLEEP APNEA TEST (HSAT) Procedures Routine Lung nodules Severe persistent asthma, unspecified whether complicated 1 Occurrences starting 11/11/2023 until 11/10/2024 [facility] Comment on above: 1 Occurrences starting 11/11/2023 until 11/10/2024 INHALANT ALLERGEN PANEL INHALANT ALLERGEN PANEL Lab Routine Environmental and seasonal allergies 01/08/2025 11:28 AM EDT [employer] LUNG DIFFUSION CAPAC ITY (DLCO) LUNG DIFFUSION CAPACITY (DLCO) PFT Routine Chronic obstructive pulmonary disease, unspecified COPD type (HCC) 09/02/2023 10:49 AM [employer] [facility] Work Phone: LUNG VOLUMES LUNG VOLUMES PFT Routine Chronic obstructive pulmonary disease, unspecified COPD type (HCC) 09/02/2023 10:49 AM [facility] Work Phone: End: 11-27-2024 MR Lumbar spine WO contrast MRI LUMBAR SPINE WO IVCON Radiology Routine Spinal 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 1 Occurrences starting 10/29/2023 until 11/27/2024 [facility] Work Phone: Comment on above: 1 Occurrences starting 10/29/2023 until 11/27/2024 Njx dx/ther agt pvrt facet jt lmbr/sac 1 level NJX DX/THER AGT PVRT FACET JT LMBR/SAC 1 LEVEL Procedures Routine Lumbar spondylosis Ordered: 10/28/2023 [facility] Work Phone: Comment on above: Ordered: 10/28/2023 Njx dx/ther agt pvrt facet jt lmbr/sac 1 level NJX DX/THER AGT PVRT FACET JT LMBR/SAC 1 LEVEL Procedures Routine Lumbar spondylosis Ordered: 12/16/2023 [facility] Work Phone: Comment on above: Ordered: 12/16/2023 Njx dx/ther agt pvrt facet jt lmbr/sac 1 level NJX DX/THER AGT PVRT FACET JT LMBR/SAC 1 LEVEL Procedures Routine Lumbar spondylosis Ordered: 04/26/2024 [facility] Work Phone: Comment on above: Ordered: 04/26/2024 Njx dx/ther agt pvrt facet jt lmbr/sac 1 level NJX DX/THER AGT PVRT FACET JT LMBR/SAC 1 LEVEL Procedures Routine Lumbar spondylosis Ordered: 05/10/2024 [facility] Work Phone: Comment on above: Ordered: 05/10/2024 Njx dx/ther agt pvrt facet jt lmbr/sac 2nd level NJX DX/THER AGT PVRT FACET JT LMBR/SAC 2ND LEVEL Procedures Routine Lumbar spondylosis Ordered: 10/28/2023 [facility] Work Phone: Comment on above: Ordered: 10/28/2023 Njx dx/ther agt pvrt facet jt lmbr/sac 2nd level NJX DX/THER AGT PVRT FACET JT LMBR/SAC 2ND LEVEL Procedures Routine Lumbar spondylosis Ordered: 12/16/2023 [facility] Comment on above: Ordered: 12/16/2023 Njx dx/ther agt pvrt facet jt lmbr/sac 2nd level NJX DX/THER AGT PVRT FACET JT LMBR/SAC 2ND LEVEL Procedures Routine Lumbar spondylosis Ordered: 04/26/2024 [facility] Comment on above: Ordered: 04/26/2024 Njx dx/ther agt pvrt facet jt lmbr/sac 2nd level NJX DX/THER AGT PVRT FACET JT LMBR/SAC 2ND LEVEL Procedures Routine Lumbar spondylosis Ordered: 05/10/2024 [facility] Comment on above: Ordered: 05/10/2024 Njx dx/ther sbst int rlmnr lmbr/sac w/img gdn EPI LUMBAR OR SACRAL W/IMAGING Procedures Routine Lumbar radiculopathy Ordered: 03/16/2024 [facility] Work Phone: Comment on above: Ordered: 03/16/2024 Patient Education Treating Wrist Fractures [facility] Work Phone: Patient referral [facility] Work Phone: End: 07-07-2025 PULMONARY LAB-SPECIFIC TESTING SERVICE RQST PULMONARY LAB-SPECIFIC TESTING SERVICE RQST PFT Routine Reactive airway disease without complication, unspecified asthma severity, unspecified whether persistent (HCC) 1 Occurrences starting 01/08/2025 until 07/07/2025 [employer] Comment on above: 1 Occurrences starting 01/08/2025 until 07/07/2025 Smr prim src gram/gi emsa stain bct fungi/cell RESPIRATORY CULTURE, MISC Microbiology Routine 10/25/2024 12:47 PM EDT [facility] [employer] Work Phone: End: 08-13-2025 XR Chest PA and Lateral XR CHEST 2V FRONTAL/LAT Radiology Routine Spinal stenosis of lumbar region with neurogenic claudication 1 Occurrences starting 07/14/2024 until 08/13/2025 [facility] Comment on above: 1 Occurrences starting 07/14/2024 until 08/13/2025 End: 07-14-2024 XR Chest PA and Lateral [facility] Work Phone: Comment on above: 1 Occurrences starting 07/14/2024 until 07/14/2024 End: 09-09-2025 XR Lumbar spine 2 Views XR LUMBAR LIMITED 2V FLEX/EXT Radiology Routine S/P lumbar laminectomy 1 Occurrences starting 08/10/2024 until 09/09/2025 [facility] Work Phone: Comment on above: 1 Occurrences starting 08/10/2024 until 09/09/2025 End: 05-04-2025 XR Lumbar spine AP and Lateral XR LUMBAR LIMITED 2V AP/LAT Radiology Routine Low back pain, unspecified back pain laterality, unspecified chronicity, unspecified whether sciatica present 1 Occurrences starting 04/04/2024 until 05/04/2025 [facility] Work Phone: Comment on above: 1 Occurrences starting 04/04/2024 until 05/04/2025 End: 05-06-2025 XR Lumbar spine Views W flexion and W extension XR LUMBAR MOTION 4V AP/LAT/ FLEX/EXT Radiology Routine Low back pain, unspecified back pain laterality, unspecified chronicity, unspecified whether sciatica present 1 Occurrences starting 04/06/2024 until 05/06/2025 [facility] Comment on above: 1 Occurrences starting 04/06/2024 until 05/06/2025 XR Lumbar spine View s W flexion and W extension XR LUMBAR MOTION 4V AP/LAT/ FLEX/EXT Radiology Routine Low back pain, unspecified back pain laterality, unspecified chronicity, unspecified whether sciatica present 06/05/2024 8:59 AM EST [facility] Work Phone: [facility] Immunizations Immunization Date Immunization Notes Care Provider [facility] 01-08-2025 Pneumococcal conjuga te 20 valent (PCV20), polysaccharide [id number] conjugate, adjuvant, PF (YNP=013) Veronica Butt [employer] Work Phone: [facility] 01-08-2025 Respiratory syncytia l virus (RSV), vaccine, bivalent, protein subunit RSV prefusion F, diluent reconstituted, 0.5 mL, preservative free (TMF=553) Veronica Butt [employer] Work Phone: [facility] 10-24-2024 Hemoglobin A1C Aura Wagner MD Work Phone: [facility] 06-14-2023 tetanus toxoid, redu seda diphtheria toxoid, and acellular pertussis vaccine, adsorbed [employer] Work Phone: [facility] 04-24-2019 influenza, injectabl e, quadrivalent, preservative free [facility] 04-24-2019 influenza virus vacc ine, unspecified formulation [facility] [place] Work Phone: [facility] 06-04-2017 influenza, injectabl e, quadrivalent, preservative free [facility] 06-04-2017 pneumococcal polysaccharide vaccine, 23 valent [facility] 05-26-2017 Influenza virus vaccine W [facility] 05-26-2017 influenza virus vacc ine, split virus (incl. purified surface antigen) Brooke Wu RN [facility] 05-26-2017 influenza, seasonal, injectable, preservative free Brooke Wu RN [facility] 05-26-2017 pneumococcal conjuga te vaccine, [facility] 06-08-2015 pneumococcal conjuga te vaccine, 13 [facility] 06-05-2015 influenza, seasonal, injectable, preservative free [facility] Payers Date Payer Category Payer Medicare FFS MEDICARE [id number] 2024 Commercial Indemnity [id number] 2024 Miscellaneous or Other H[facility]/ [place] [address] [id number] 2024 Unknown [id number] 2024 Medicare [id number] 2024 Medicare [id number] 2023 Unknown 0000 [id number] 2023 Self-pay [id number] 2018 Unknown [id number] 2016 Unknown [id number] 1959 Unknown [id number] [id number]. 732 1959 Unknown [id number] [id number]. 732 1959 Unknown [id number] 2.16.840.1.170659.3.579.2. 732 1959 Unknown [id number] 2.16.840.1.241609.3.579.2. 732 1959 Unknown [id number] [id number]. 732 1959 Unknown [id number] 2.16.840.1.566564.3.579.2. 732 1959 Unknown [id number] [id number]. 732 1959 Unknown [id number] [id number]. 732 Unknown [id number] [id number]. 462 Unknown [id number] [id number]. 462 Unknown [id number]. 462 Social History Date Type Detail Facility Start: 04-22-2019 End: 03-22-2022 Tobacco smoking status MNIS Tobacco smoking consumption unknown [facility] Start: 1960 Sex Assigned At Not [facility] file [facility] Start: 04-23-2019 Heavy [facility] Start: 04-22-2019 None [facility] Start: 04-22-2019 Spouse/ Signif icant Other [facility] Start: 04-23-2019 Cigarettes [facility] Start: 1960 Sex Assigned At Male W [facility] Start: 06-14-2023 End: 10-24-2024 Tobacco smoking status NHIS Smokes tobacco daily [facility] History of tobacco use Cigarette Smoker C [facility] Start: 06-14-2023 End: 10-24-2024 Cigarettes smoked current (pack per day) - Reported 2 [facility] Start: 06-14-2023 End: 01-08-2025 Tobacco use and exposure Smokeless tobacco non-user [facility] Start: 08-20-2023 End: 10-24-2024 Alcohol intake Current drinker of alcohol (finding) [facility] Start: 08-20-2023 End: 10-24-2024 Tobacco use panel [facility] National Score (1-100), lower number is lower risk 53 [facility] Start: 06-14-2023 Alcohol Comment 6 pack a day [facility] Start: 04-06-2024 End: 07-14-2024 Tobacco smoking status NHIS Ex-smoker [facility] History of tobacco use Current smoker [facility] Start: 04-06-2024 Tobacco Comment Quit smoking a week or so ago (04/06/24) [facility] Start: 07-14-2024 Tobacco Comment Quit smoking a week or so ago (04/06/24)Smoked for about 35 years max 2 [facility] Start: 07-14-2024 Alcohol Comment 30 cans beer per wemimi k [facility] Start: 07-14-2024 Tobacco Comment Quit smoking a week or so ago (04/06/24)Smoked for about 35 years 1- 2 [facility] Has the electric, EnzymeRx, Genophen, or water [employer] threatened to shut off services in your home in past 12Mo No [facility] (I/We) worried whecelia er (my/our) food would run out before (I/we) got money to buy more. Never true [facility] Start: 04-23-2019 Sex Male (finding) [facility] Start: 11-17-2024 End: 01-08-2025 Tobacco smoking status NHIS Occasional tobacco smoker [facility] Medical Equipment Procedure Code Equipment Code [...] 07/29/2024 3:21 PM Jennifer Bridges, NEENA No [facility] 07-29-2024 Are you blind, or do you have serious difficulty seeing, even when wearing glasses No 07/29/2024 3:21 PM Jennifer Bridges, NEENA No [facility] 07-29-2024 Do you have serious difficulty walking or climbing stairs No 07/29/2024 3:21 PM Jennifer Bridges, NEENA No [facility] 07-29-2024 Do you have difficul ty dressing or bathing No 07/29/2024 3:21 PM Jennifer Bridges, NEENA No [facility] 07-29-2024 Because of a physica l, mental, or emotional condition, do you have difficulty doing errands alone such as visiting a physician's office or shopping No 07/29/2024 3:21 PM Jennifer Bridges, NEENA No [facility] 04-23-2019 Are you deaf, or do you have serious difficulty hearing No 04/23/2019 9:00 PM Cynthia Raphael, NEENA No [facility] 04-23-2019 Are you blind, or do you have serious difficulty seeing, even when wearing glasses Yes 04/23/2019 9:00 PM Cynthia Raphael, NEENA Yes [facility] 04-23-2019 Do you have serious difficulty walking or climbing stairs No 04/23/2019 9:00 PM Cynthia Raphael, NEENA No [facility] 04-23-2019 Do you have difficul ty dressing or bathing No 04/23/2019 9:00 PM Cynthia Raphael, NEENA No [facility] 04-23-2019 Because of a physica l, mental, or emotional condition, do you have difficulty doing errands alone such as visiting a physician's office or shopping No 04/23/2019 9:00 PM Cynthia Raphael, NEENA No [facility] Mental Status Date Assessment Result Facility 07-29-2024 Because of a physica l, mental, or emotional condition, do you have serious difficulty concentrating, remembering, or making decisions No 07/29/2024 3:21 PM Jennifer Bridges, NEENA No [facility] 04-23-2019 Because of a physica l, mental, or emotional condition, do you have serious difficulty concentrating, remembering, or making decisions No 04/23/2019 9:00 PM EDT Cynthia Cohn RN No [facility] Clinical Notes 08-20-2023 to 02-01-2025 Telephone Encounter - Elvis Duke - 02/01/2025 3:12 PM EDTTelephone Encounter - Duke Leal - 02/01/2025 3:12 PM EDTTelephone Encounter - Clemencia Rodriguez - 02/01/2025 2:34 PM EDTAttachments Note Date & Type Note Facility 02-01-2025 Telephone encounter Note Lm on vcml to scheduled PFT [facility] 02-01-2025 Miscellaneous Notes Lm on vcml to scheduled PFT Please contact to reschedule PFT appt. documented in this encounter [facility] 02-01-2025 Telephone encounter Note Please contact to reschedule PFT appt. 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 [place] (no OV notes available) Per patient and [...] -- -- 0.07 <0.03 Modified Medical Research [employer] (mMRC) dyspnea scale Grade Description of breathlessness [...] + PRN 2L with exertion Occupation/Exposures: Occupation: [employer] Born/raised: [place] Pets: 1 dog Triggers: highlighted if positive [...] - Connective tissue disorders; SLE, Sjogren's, RA, Tracy's - Iritable bowel disease - Malignancy or [...] (CVX=15) 05/26/2017 Influenza, injectable, quadrivalent, preservative free (VBL=159) 06/04/2017, 04/24/2019 Influenza, injectable, trivalent, preservative free (SVX=205) 06/05/2015, 05/26/2017 Pneumococcal conjugate 13 valent (PCV13) (MJF=447) 06/08/2015, 05/26/2017 Pneumococcal polysaccharide 23 Valent (PPSV23) (CVX=33) 06/04/2017 Tdap (EIH=910) 06/14/2023 Pended Date(s) Pended Pneumococcal conjugate 20 valent (PCV20), polysaccharide WGL521 conjugate, adjuvant, PF (FJP=615) 01/08/2025 Respiratory syncytial virus (RSV), vaccine, bivalent, protein subunit RSV prefusion F, diluent reconstituted, 0.5 mL, preservative free (JWE=714) 01/08/2025 Outpatient Medications: Current Asthma Medications Sympathomimetics [...] signs of COPD on PFT's completed at [facility] Did not respond well to Dulera [...] to improve, for in-person visit. Veronica Butt APRN.[facility] Department of Pulmonary [facility] Time-based billing justifications: Reviewing (chart, labs, and other clinical notes) Obtaining history (or reviewing separately obtained history) Patient visit (including performing a medically appropriate exam) Counseling/educating the patient/family/caregiver Ordering (medications, tests, procedures - including independent interpretation of results when not reported separately) Charting in [facility] [1] No past medical history on file. [2] No past surgical history on file. [3] No family history on file. [4] Allergies Allergen Reactions Penicillins Roflumilast Rash Patient was identified by name and date of . Barak Cerrato MA .Patient at risk for falls:No Falls Risk protocol implemented: N/A documented in this encounter [facility] 12-25-2024 Telephone encounter Note Neurology Clinical Boarding House Manager Note Attempted to call patient. LVM to return call to this RN to schedule a neurology appt for JIN with Dr Flannery. Letter sent SUSY Flood, RN, [facility] Clinical Boarding House Manager, Neurology [facility] 12-25-2024 Miscellaneous Notes Neurology Clinical Boarding House Manager Note Attempted to call patient. LVM to return call to this RN to schedule a neurology appt for JIN with Dr Flannery. Letter sent SUSY Flood, RN, [facility] Clinical Boarding House Manager, Neurology documented in this encounter [facility] 12-02-2024 Hospital Discharge instructions Prashanth [...] sent through Care Everywhere.Headache Discharge Instructions, Adult (Malagasy)Risk Factors for Stroke (Malagasy)documented in this encounter [facility] 12-02-2024 Note Physician Triage Not [...] role in this case. PLEASE SEE OTHER ATTENDING/RESIDENT/PHYSICIAN/PRODUCTION MACHINE SHOP SUPERVISOR /PA NOTATION Elvis Rodriguez MD [facility] 12-02-2024 Physician Emergency department [...] role in this case. PLEASE SEE OTHER ATTENDING/RESIDENT/PHYSICIAN/PRODUCTION MACHINE SHOP SUPERVISOR /PA NOTATION Elvis Rodriguez MD [employer] Work Phone: 12-02-2024 Emergency department Note Physician [...] role in this case. PLEASE SEE OTHER ATTENDING/RESIDENT/PHYSICIAN/PRODUCTION MACHINE SHOP SUPERVISOR /PA NOTATION Elvis Rodriguez MD documented in this encounter [facility] 11-24-2024 Telephone encounter Note COPD Care Coordination note: Subjective: I am doing ok Objective: Future Appointments (next 10) Provider Department Center 01/08/2025 10:20 AM (Arrive by 10:10 AM) Veronica Butt APRN-CNP [facility] 01/18/2025 9:40 AM [facility] who reports: Patient reports shortness [...] prescribed Attend all recommended appointments Brooke Wu Freight Receiver [phone] Option 3 [facility] 11-24-2024 Miscellaneous Notes COPD Care Coordination note: Subjective: I am doing ok Objective: Future Appointments (next 10) Provider Department Center 01/08/2025 10:20 AM (Arrive by 10:10 AM) Veronica Butt APRN-CNP [facility] 01/18/2025 9:40 AM [facility] patient who reports: Patient reports shortness [...] prescribed Attend all recommended appointments Brooke Wu Freight Receiver [phone] Option 3 documented in this encounter [facility] 11-17-2024 History of Present illness [...] date of . documented in this encounter [facility] 11-16-2024 Note HNO ID: [id number] Author: VARUN PRATT, PT Service: ? Author Type: Physical Therapist Type: Progress Notes Filed: 11/16/2024 11:41 Note Text: 11/16/2024 [facility] PHYSICAL THERAPY DISCONTINUANCE [...] scheduled additional follow-up appointments. Varun Pratt, PT [facility] 11-01-2024 Telephone encounter Note Vijay, The patient has been referred to the pulmonary rehab program. The pulmonary referral that was placed does not have the measurements from the PFT included within it. On the referral it states Patient's Reference Values: No results found for: [id number]. In order to assess whether or not the patient qualifies, we will need these values filled in on the referral. Please consider ordering PFTs for the patient so that the updated values can be included in the referral. Based on the current referral, the patient will not be added to the workqueue at this time. Thank you. [facility] 11-01-2024 Miscellaneous Notes Vijay, The patient has been referred to the pulmonary rehab program. The pulmonary referral that was placed does not have the measurements from the PFT included within it. On the referral it states Patient's Reference Values: No results found for: [id number]. In order to assess whether or not the patient qualifies, we will need these values filled in on the referral. Please consider ordering PFTs for the patient so that the updated values can be included in the referral. Based on the current referral, the patient will not be added to the workqueue at this time. Thank you. documented in this encounter [facility] 10-27-2024 Note Transitional Care Carlie [...] Pharmacy needs: None at this time Reviewed [facility] pharmacy information with patient: No Reviewed follow up appointments/procedures: No Future Appointments (next 10) Provider Department Center 11/17/2024 2:00 PM Anna Sanders PA-C [facility] Medicine [facility] 01/08/2025 10:20 AM (Arrive by 10:10 AM) Veronica Butt APRN-NABOR [facility] Reviewed need for/follow up on diagnostic tests, referrals, and treatment plans:No Community resources identified for patient/family: No Durable medical equipment ordered: No Education provided to patient/caregiver to support self management, ADL's, etc: Take all medications as prescribed Attend all recommended follow up appointments Follow up with Urgent Care/Express Care/ED should symptoms worsen or not improve Interact with other health critical care technician involved in patient care: No Referral to Primary Care Coordination: No Referral to Pan Weber: No Information specific to COPD Software Quality Manager: Has home oxygen: Yes, 2-4 liters Has [...] oxygen unit is being stored SUSY Hammond, coloring room workerFreight Receiver [phone] [facility] 10-27-2024 Telephone encounter Note [...] Pharmacy needs: None at this time Reviewed [facility] pharmacy information with patient: No Reviewed follow up appointments/procedures: No Future Appointments (next 10) Provider Department Center 11/17/2024 2:00 PM Anna Sanders PA-C [facility] Medicine [facility] 01/08/2025 10:20 AM (Arrive by 10:10 AM) Veronica Butt APRN-PRODUCTION MACHINE SHOP SUPERVISOR [facility] Reviewed need for/follow up on diagnostic tests, referrals, and treatment plans:No Community resources identified for patient/family: No Durable medical equipment ordered: No Education provided to patient/caregiver to support self management, ADL's, etc: Take all medications as prescribed Attend all recommended follow up appointments Follow up with Urgent Care/Express Care/ED should symptoms worsen or not improve Interact with other health critical care technician involved in patient care: No Referral to Primary Care Coordination: No Referral to Pan Weber: No Information specific to COPD Software Quality Manager: Has home oxygen: Yes, 2-4 liters Has [...] oxygen unit is being stored SUSY Hammond, coloring room workerFreight Receiver [phone] [facility] 10-27-2024 Miscellaneous Notes Transitional Care [...] Pharmacy needs: None at this time Reviewed [facility] pharmacy information with patient: No Reviewed follow up appointments/procedures: No Future Appointments (next 10) Provider Department Center 11/17/2024 2:00 PM Anna Sanders PA-C [facility] 01/08/2025 10:20 AM (Arrive by 10:10 AM) Veronica Butt, [employer] PIPES ASSEMBLER-NABOR [facility] Reviewed need for/follow up on diagnostic tests, referrals, and treatment plans:No Community resources identified for patient/family: No Durable medical equipment ordered: No Education provided to patient/caregiver to support self management, ADL's, etc: Take all medications as prescribed Attend all recommended follow up appointments Follow up with Urgent Care/Express Care/ED should symptoms worsen or not improve Interact with other health critical care technician involved in patient care: No Referral to Primary Care Coordination: No Referral to Pan Weber: No Information specific to COPD Software Quality Manager: Has home oxygen: Yes, 2-4 liters Has [...] oxygen unit is being stored SUSY Hammond, coloring room workerFreight Receiver [phone] documented in this encounter [facility] 10-26-2024 Hospital Discharge instructions Dhiraj Ron MD - 10/26/2024 3:24 PM EDT Take Anoro-Ellipta inhaler daily and use your albuterol inhaler as needed. You can continue taking your nebulization. Complete your course of prednisone and antibiotics as indicated. We have made followup with [facility] Pulmonary Physicans Also use supplemental oxygen at discharge. documented in this encounter [facility] 10-26-2024 Plan of care note [...] lowest SpO2 was 94%. Aura Wagner MD [facility] 10-26-2024 Miscellaneous Notes EXERCISE OXIMETRY: [...] Aura Wagner MD documented in this encounter [facility] 10-26-2024 History of Present illness [...] bedside for transport at discharge, please call [place] at [phone] (Available 08/02). Pt has been cleared to dc home with recs for OP Pulm Rehab. SW will follow for appropriate dc planning. JERRY Norris, MAINTENANCE DIRECTOR Inpatient Trouble Shooter Images from the original note were not included. [facility] Internal Medicine Intermediate Plan Note Elis Bills Age [age] year old male ROOM: [place] [address] Admitted No admission date for patient encounter. [...] - nicotine patch Remainder of plan per internet sourcer note. Raji Curran MD Internal Medicine, PGY-3 Available via [facility] Chat documented in this encounter [facility] 10-26-2024 Note DISCHARGE SUMMARY [place] [id number] Elis Bills Date of : 1960 64 [...] results when not reported separately) Charting in [facility] Final Diagnosis: COPD exacerbation (HCC) Hospital Problems as of 10/26/2024 * (Principal) COPD exacerbation (HCC) Exacerbation of intermittent asthma, unspecified asthma severity (HCC) Discharge Procedure Orders Pulm Rehab ADT ([id number]) DME WALKER Oxygen Concentrator (Home Oxygen) Portable Gaseous Oxygen System Pulmonary Rehab Service Request Referral Priority: Routine Referral Type: Evaluate and Treat Referral Reason: Evaluation Referral Location: [facility] CARD PULM REHAB Number of Visits Requested: 24 Expiration Date: 10/26/25 Pulmonary COPD Service Request Referral Priority: Routine Referral Type: Service Level Authorization Referral Location: [facility] PULMONARY HV Number of Visits Requested: 3 Expiration Date: 10/26/25 Electrocardiogram (EKG) - In Clinic Future Appointments Date Time Provider Department Center 11/17/2024 2:00 PM Anna Sanders PA-C Located within [facility] 01/08/2025 10:20 AM Veronica Butt, CORNCOB PIPES ASSEMBLER-PRODUCTION MACHINE SHOP SUPERVISOR [facility] Condition at Discharge improved Symptoms to look [...] Heart: RRR. (more content not included)... [facility] 10-26-2024 Consult note Formatting of th [...] Dep Max Mod Min CG CS DS ND I Comment Supine to sit x *pt [...] DME: With Patients permission ordered rollator via [employer] Order. If any questions contact [facility] DME Provider at [phone]. 10/26/2024 6 Clicks Basic Mobility PT Difficulty [...] NA = Not Assessed, I = Independent, ND = Modified Independent, Sup = Supervised, Set up = Physical Assistance for Set-up Only, Min = Minimal Assistance, Mod = Moderate Assistance, Max = Maximal assistance; Dep = Dependent; AROM = Active Range of Motion; PROM = Passive Range of Motion; MMT = Manual Muscle Test T [facility] 10-26-2024 Note PHYSICAL THERAPY PRO [...] Dep Max Mod Min CG CS DS ND I Comment Supine to sit x *pt [...] DME: With Patients permission ordered rollator via [employer] Order. If any questions contact [facility] DME Provider at [phone]. 10/26/2024 6 Clicks Basic Mobility PT Difficulty [...] home en (more content not included)... [facility] 10-26-2024 Consult note Formatting of th [...] Dep Max Mod Min CG CS DS ND I Comment Supine to sit x *pt [...] DME: With Patients permission ordered rollator via [employer] Order. If any questions contact [facility] DME Provider at [phone]. 10/26/2024 6 Clicks Basic Mobility PT Difficulty [...] NA = Not Assessed, I = Independent, ND = Modified Independent, Sup = Supervised, Set [...] he does not need resources. 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 Denies falls or use of assist devices. [...] Dep Max Mod Min CG CS DS ND I Comment Supine<>sit x Sit<>stand x Without [...] NA = Not Assessed, I = Independent, ND = Modified Independent, Sup = Supervised, Set up = Physical Assistance for Set-up Only, Min = Minimal Assistance, Mod = Moderate Assistance, Max = Max assistance; Dep = Dependent; AROM = Active Range of Motion; PROM = Passive Range of Motion; MMT = Manual Muscle Test; LE = Lower Extremity documented in this encounter [facility] 10-25-2024 Consult note Associated Order (s): IP SOCIAL WORK SERVICE REQUEST SW is aware of consult for substance use resources. Pt declines substance use issues and states he does not need resources. 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 Denies falls or use of assist devices. 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 Denies falls or use of assist devices. [...] Dep Max Mod Min CG CS DS ND I Comment Supine<>sit x Sit<>stand x Without [...] NA = Not Assessed, I = Independent, ND = Modified Independent, Sup = Supervised, Set up = Physical Assistance for Set-up Only, Min = Minimal Assistance, Mod = Moderate Assistance, Max = Max assistance; Dep = Dependent; AROM = Active Range of Motion; PROM = Passive Range of Motion; MMT = Manual Muscle Test; LE = Lower Extremity [facility] 10-25-2024 History and physical note Stepdown Unit ATTENDING NOTE AURA WAGNER MD - PIN [id number] I saw and evaluated the patient. I [...] MD Pulmonary, Critical Care and Sleep Medicine [facility] 10-25-2024 History and physical note Stepdown Unit ATTENDING NOTE AURA WAGNER MD - PIN [id number] I saw and evaluated the patient. I [...] MD Pulmonary, Critical Care and Sleep Medicine [facility] Images from the original note were not included. [facility] Step Down Unit - H&P Elis Bills Age [age] year old male ROOM: [place] [address] Admitted 10/24/2024 7:57 PM Hospital Day: 2 [...] breath. He started to feel SOB in buddhist on Wednesday. Went home and used pulse [...] 3.92 FEF50/FIF50 0.41 90-100 FIVC (L) 2.62 [id number] (L/sec) 0.90 1.20 2.56 4.44 35 Time [...] trapping, normal TLC. Normal FEV1/FVC but low [id number]. Chest CT with multiple sub<6mm lung nodules. No mediastinal LAD. Airway wall thickening. 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 [facility] Step Down Unit - H&P Elis Bills Age [age] year old male ROOM: [place] [address] Admitted 10/24/2024 7:57 PM Hospital Day: 2 [...] breath. He started to feel SOB in buddhist on Wednesday. Went home and used pulse [...] 3.92 FEF50/FIF50 0.41 90-100 FIVC (L) 2.62 [id number] (L/sec) 0.90 1.20 2.56 4.44 35 Time [...] trapping, normal TLC. Normal FEV1/FVC but low [id number]. Chest CT with multiple sub<6mm lung nodules. No mediastinal LAD. Airway wall thickening. 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 Valentina Dumnot MD PGY1, Internal Medicine Preliminary Stepdown Unit Pager [phone] [facility] 10-24-2024 Note SARS-COV-2 (AGENT OF COVID-19) RNA: Not detected INFLUENZA A RNA: Not detected INFLUENZA B RNA: Not detected RESPIRATORY SYNCYTIAL VIRUS (RSV) RNA: Not detected [facility] Comment on above: Performed By: #### 9 [id number] #### [facility] CLIA [id number] [address] [place] [address] OF [facility] 09-12-2024 History of Present illness Narrative Program_ID:[id number] Access Code: [email or web address] URL: [email or web address] Date: 09-12-2024 Prepared By: Varun Pratt Program [...] 10 reps - Seated Flexion Stretch with Djiboutian Ball - 2 x daily - 7 x weekly - 2 sets - 10 reps - Seated Thoracic Flexion and Rotation with [place]ib[place]ian Ball - 2 x daily - 7 [...] Goals for Episode of Care: established 09/12/24 [place]ike in home exercise program. Restore pain-free lumbar [...] Planned: 4 Planned Treatment Interventions: Therapeutic exercise (84039), Neuromuscular re-education (68869), Manual therapy (48712), Therapeutic activities (65001), Self-prison management (67101), Patient/Family/Caregiver Education, Body Mechanics Training PLAN FOR [...] Lumbar Extension: Minimal limitation Lumbar R Side [place]: Minimal limitation Lumbar L Side [place]: Minimal limitation Lumbar R Side-Bend: Minimal limitation [...] *Seated Pallof: 1x10 each, GTB. 5: *Seated cape verdean ball flexion rollouts: x10. (discussed computer chair use at home) 6: *Seated cape verdean ball flexion+rotation rollouts: x10 each way (discussed [...] Pratt PT, DPT. documented in this encounter [facility] 09-12-2024 Note HNO ID: [id number] Author: VARUN PRATT, SHARAN Service: ? Author [...] Goals for Episode of Care: established 09/12/24 Pike in home exercise program. Restore pain-free lumbar [...] Planned: 4 Planned Treatment Interventions: Therapeutic exercise (98273), Neuromuscular re-education (14502), Manual therapy (56756), Therapeutic activities (56831), Self-prison management (16162), Patient/Family/Caregiver Education, Body Mechanics Training PLAN FOR [...] general population. Hi (more content not included)... [facility] 09-05-2024 Telephone encounter Note LVM that appt for 09/18/24 has been cancelled due to not needing appt on 09/18/24 and again on 10/19/24. Told patient to call office if he has any questions regarding the cancelled appt on 09/18/24. [facility] 09-05-2024 Miscellaneous Notes LVM that appt for 09/18/24 has been cancelled due to not needing appt on 09/18/24 and again on 10/19/24. Told patient to call office if he has any questions regarding the cancelled appt on 09/18/24. documented in this encounter [facility] 08-28-2024 Telephone encounter Note Referral placed for physical therapy in the [facility] Internal Referral Portal. Confirmation # [id number] Puma Nicolas Ma [facility] 08-28-2024 Miscellaneous Notes Referral placed for physical therapy in the [facility] Internal Referral Portal. Confirmation # [id number] Puma Nicolas Ma documented in this encounter [facility] 08-10-2024 History of Present illness Narrative NEUROSURGERY POST-OP NOTE Lois Kee MD [facility] Date of visit: August 10, 2024 Patient Name: Mr.Donald Tim Bills Date of : 1960 Current Age: [age] year old Sex: male MRN/E# [id number] Last Office Visit: 08/02/2024 SURGERY: L1 decompression [...] in agreement with plan. Lois Kee MD [facility] This note was partially generated using Kaizen Platform voice recognition system, and there may be some incorrect words, spellings, and punctuation that were not noted in checking the note before saving. documented in this encounter [facility] 08-10-2024 Note HNO ID: [id number] Author: LOIS KEE MD Service: ? Author Type: Physician Type: Progress Notes Filed: 08/10/2024 13:30 Note Text: NEUROSURGERY POST-OP NOTE Lois Kee MD [facility] Date of visit: August 10, 2024 Patient Name: Mr.Donald Tim Bills Date of : 1960 Current Age: [age] year old Sex: male MRN/E# [id number] Last Office Visit: 08/02/2024 SURGERY: L1 decompression [...] No new angelica (more content not included)... [facility] 08-02-2024 Telephone encounter Note Patient phones requesting refills as follows: Requested Prescriptions Pending Prescriptions Disp Refills oxyCODONE IR (ROXICODONE) 5 mg immediate release tablet 9 tablet 0 Sig: Take 1 tablet by mouth every 8 hours as needed for up to 3 days. Please review and advise. Helen Decker MA [facility] 08-02-2024 Miscellaneous Notes Patient phones requesting refills as follows: Requested Prescriptions Pending Prescriptions Disp Refills oxyCODONE IR (ROXICODONE) 5 mg immediate release tablet 9 tablet 0 Sig: Take 1 tablet by mouth every 8 hours as needed for up to 3 days. Please review and advise. Helen Decker MA documented in this encounter [facility] 07-29-2024 Note HNO ID: [id number] Author: SINGH ALLEN PA-C Service: Hospital Medicine Author Type: Physician Artificial Leather Calender Operator Type: Plan of Care Filed: 07/29/2024 05:08 Note Text: This STEVE was notified about patient's sodium lvl of 121 by RN. Serum Osm 270. Random Na <20. Urine Osm 368. Consulted Nephrology due to decreasing NA lvls. Singh Allen PA-C [facility] 07-28-2024 Note HNO ID: [id number] Author: INGE REYNOSO APRN.LICENSED HOME INSPECTOR Service: Anesthesiology Author Type: Nurse Jackaroo Type: Anesthesia Procedure Notes Filed: 07/28/2024 12:07 Note Text: ANESTHESIOLOGY PROCEDURE NOTE Airway General Information Procedure Start Time/Medication Administration: 07/28/2024 12:03 PM Procedure End Time: 07/28/2024 12:03 PM Patient location during procedure: OR Timeout Performed Pre-procedure: timeout performed Consent Obtained: Yes Patient identity confirmed: arm band, care boarder steam and patient sedated or unresponsive Staffing LICENSED HOME INSPECTOR: Inge Reynoso APRN.LICENSED HOME INSPECTOR Performed by: LICENSED HOME INSPECTOR Indications and Patient Condition Indications for airway [...] no Airway not difficult SIGNATURE: Inge Reynoso APRN.LICENSED HOME INSPECTOR PATIENT NAME: Elis Bills DATE: July 28, 2024 TIME: 12:06 PM CSN: [id number] [facility] 07-28-2024 Note HNO ID: [id number] Author: KYLIE MALDONADO RN Service: Nursing Author Type: Registered Nurse Type: Nursing Progress Note Filed: 07/28/2024 09:50 Note Text: Dr. Grajeda notified: pt chewing nicorette gum, discarded at 0935. [facility] 07-27-2024 Telephone encounter Note Contacted patient to remind them of their arrival time for surgery with Dr. Lois Kee on 07/28/24. Patient is to arrive at [facility] at 8:30am for surgery at 10:30am. Spoke with patient and they are aware of all arrival information. [facility] 07-27-2024 Miscellaneous Notes Contacted patient to remind them of their arrival time for surgery with Dr. Lois Kee on 07/28/24. Patient is to arrive at [facility] at 8:30am for surgery at 10:30am. Spoke with patient and they are aware of all arrival information. documented in this encounter [facility] 07-21-2024 Telephone encounter Note Completed/signed form faxed back to Dr. Kee's office. Dalia Segura [facility] 07-21-2024 Miscellaneous Notes Completed/signed form faxed back to Dr. Kee's office. Dalia Segura Type of form: Medical clearance for L2-L4 Laminectomy DOS: 07/28/24 TIMO Form received via fax When form is completed, Fax form to [phone] Form has been forwarded to Physician Mailbox: Dr. Vu Segura documented in this encounter [facility] 07-20-2024 Telephone encounter Note Type of form: Medical clearance for L2-L4 Laminectomy DOS: 07/28/24 TIMO Form received via fax When form is completed, Fax form to [phone] Form has been forwarded to Physician Mailbox: Dr. Vu Segura [facility] 07-17-2024 Telephone encounter Note Sounds good thank you. [facility] Work Phone: 07-17-2024 Miscellaneous Notes Sounds good thank you. documented in this encounter [facility] 07-14-2024 Note HNO ID: [id number] Author: HARVEY PURVIS APRN.PRODUCTION MACHINE SHOP SUPERVISOR Service: Anesthesiology Author Type: Nurse Practitioner Type: [...] a hill (5.50 METs) DASI Score: 5.5 [facility] 07-14-2024 History of Present [...] PATIENT PRESENTS WITH AN IMPLANTABLE OR ATTACHED AGRICULTURAL SERVICES DIRECTOR: No RADIOLOGY DEPARTMENT: General X-ray: Exam(s) Completed: Chest X-Ray PERIPHERAL IV DATA: Not applicable SIGNED BY: RT Jesus Alberto(Yareli) July 14, 2024 1:59 PM documented in this encounter [facility] 07-14-2024 Note HNO ID: [id number] Author: SARITA REYES RT(Yareli) Service: Radiology Author [...] PATIENT PRESENTS WITH AN IMPLANTABLE OR ATTACHED AGRICULTURAL SERVICES DIRECTOR: No RADIOLOGY DEPARTMENT: General X-ray: Exam(s) Completed: Chest X-Ray PERIPHERAL IV DATA: Not applicable SIGNED BY: RT Jesus Alberto(R) July 14, 2024 1:59 PM [facility] 07-14-2024 History and physical [...] at this time: primary care/internal medicine (in [facility]). Planned Anesthetic: general The Following Tests/Procedures Have Been Initiated: Orders Placed This Encounter Confirm Blood Type Standing Status: Future Number of Occurrences: 1 Standing Expiration Date: 10/13/2024 Order Specific Question: Did Blood Bank direct you to place this order: Answer: No - Presurgical Workflow MYRON EasyQasa 160-9-4.8 mcg/actuation HFA aerosol inhaler Sig: INHALE [...] fibrillation, CAD, chest pain, DVT/PE and recent ND. GI: Positive for: GERD Negative for: abdominal [...] 450 QTC Calculation (Bazett) 482 Calculated P [place] -13 Calculated R [place] 78 Calculated T [place] 24 Impression SINUS RHYTHM WITH PREMATURE SUPRAVENTRICULAR COMPLEXES RIGHT BUNDLE BRANCH BLOCK ABNORMAL ECG NO PREVIOUS ECGS AVAILABLE Confirmed by MD ERICK, DEANN ([id number]) on 12/03/2023 4:27:07 PM Recent Results (from the past 61851 hour(s)) ECHO Collection Time: 12/29/23 10:25 AM [...] which included preparing to see the patient, ocdo-yb-bwqd patient care, completing clinical documentation, obtaining and/or reviewing separately obtained history, performing a medically appropriate examination, counseling and educating the patient/family/caregiver, and ordering medications, tests, or procedures. SIGNATURE: Harvey Purvis APRN.CNP PATIENT NAME: Elis Bills DATE: July 14, 2024 TIME: 12:50 PM PAGER/CONTACT #: [facility] 07-14-2024 History and physical note Images from [...] at this time: primary care/internal medicine (in [facility]). Planned Anesthetic: general The Following Tests/Procedures Have Been Initiated: Orders Placed This Encounter Confirm Blood Type Standing Status: Future Number of Occurrences: 1 Standing Expiration Date: 10/13/2024 Order Specific Question: Did Blood Bank direct you to place this order: Answer: No - Presurgical Workflow BANNER EasyQasa 160-9-4.8 mcg/actuation HFA aerosol inhaler Sig: INHALE [...] fibrillation, CAD, chest pain, DVT/PE and recent ND. GI: Positive for: GERD Negative for: abdominal [...] 450 QTC Calculation (Bazett) 482 Calculated P [place] -13 Calculated R [place] 78 Calculated T [place] 24 Impression SINUS RHYTHM WITH PREMATURE SUPRAVENTRICULAR COMPLEXES RIGHT BUNDLE BRANCH BLOCK ABNORMAL ECG NO PREVIOUS ECGS AVAILABLE Confirmed by MD SUAREZ VINAYAK ([id number]) on 12/03/2023 4:27:07 PM Recent Results (from the past 67245 hour(s)) ECHO Collection Time: 12/29/23 10:25 AM [...] which included preparing to see the patient, qpmq-wu-yftk patient care, completing clinical documentation, obtaining and/or reviewing separately obtained history, performing a medically appropriate examination, counseling and educating the patient/family/caregiver, and ordering medications, tests, or procedures. SIGNATURE: Harvey Purvis APRN.CNP PATIENT NAME: Elis Bills DATE: July 14, 2024 TIME: 12:50 PM PAGER/CONTACT #: documented in this encounter [facility] 07-10-2024 Instructions Harvey Purvis APRN.CNP - 07/10/2024 12:50 PM EST PATIENT PREOPERATIVE INSTRUCTIONS Your surgeon has scheduled for your procedure at this surgery center: [facility]: [phone], [address] [id number] Please read below carefully for your personalized [...] surgery. - YOU MUST HAVE A RESPONSIBLE WET MACHINE TENDER TAKE YOU HOME. A CMV DRIVER, CAB OR UBER WET MACHINE TENDER CANNOT BE MADE A RESPONSIBLE WET MACHINE TENDER. - If you are undergoing an outpatient [...] date of surgery. Visitation: Visitors to any [facility] facility: Any individual who is sick should not visit. Visitors to patients with COVID-19 must follow these guidelines, which include wearing a mask, eye protection, gown and gloves. [facility] in [place] Visitation hours: 7 AM to 9 PM. Pre-Surgery Unit - Patients may have up to 2 visitors at a time. PACU recovery Unit - Patients may have up to 1-2 visitors at a time. [facility] [place] Pre-Surgery area - 1 visitor at a [...] Advance Directive, please fax a copy to [phone] or email to for it to be [...] OR ORTHOPEDIC SURGERY: - Orthopedic patients at [facility] listed as outpatient, please bring walker into the building. - Orthopedic patients at [facility] listed as to be admitted, please leave walkers in the car or with a family member. - Orthopedic patients at [facility] [place], please bring the walker into the building [...] Purvis APRN.CNP 07/14/24 documented in this encounter [facility] 06-21-2024 Telephone encounter Note Patient returned my call. Discussed all surgery details. Answered all questions. [facility] 06-21-2024 Miscellaneous Notes Patient returned my call. Discussed all surgery details. Answered all questions. Attempted to contact patient to discuss surgery details. No answer and VM box full. Unable to leave a voice message documented in this encounter [facility] 06-21-2024 Telephone encounter Note Attempted to contact patient to discuss surgery details. No answer and VM box full. Unable to leave a voice message [facility] 06-08-2024 Telephone encounter Note Nebulizer orders signed & faxed back to [facility]. Dalia Segura [facility] 06-08-2024 Miscellaneous Notes Nebulizer orders signed & faxed back to [facility]. Dalia Segura documented in this encounter [facility] 06-08-2024 History of Present illness Narrative Radiology [...] PATIENT PRESENTS WITH AN IMPLANTABLE OR ATTACHED AGRICULTURAL SERVICES DIRECTOR: No RADIOLOGY DEPARTMENT: CT; Exam(s) Completed: Chest PERIPHERAL IV DATA: Not applicable SIGNED BY: RT Fernando(Yareli) June 08, 2024 11:03 AM documented in this encounter [facility] 06-08-2024 Note HNO ID: [id number] Author: ERMIAS JANE RT(Yareli) Service: ? Author Type: Irrigator Head Type: Progress Notes Filed: 06/08/2024 11:03 Note [...] PATIENT PRESENTS WITH AN IMPLANTABLE OR ATTACHED AGRICULTURAL SERVICES DIRECTOR: No RADIOLOGY DEPARTMENT: CT; Exam(s) Completed: Chest PERIPHERAL IV DATA: Not applicable SIGNED BY: RT Fernando(R) June 08, 2024 11:03 AM [facility] 06-05-2024 History of Present illness Narrative Images from the original note were not included. NEUROSURGERY FOLLOW UP OFFICE NOTE Lois Kee MD [facility] Date of visit: June 05, 2024 Patient Name: Mr.Donald Tim Bills Date of : 1960 Current Age: [age] year old Sex: male MRN/E# [id number] Last Office Visit: 04/06/2024 Chief Complaint: Patient [...] in agreement with plan. Lois Kee MD [facility] Medical Decision Making: Problems: Moderate: 2+ stable chronic illnesses Data: Unique source(s) for external note(s) reviewed: 1 Unique test result(s) reviewed: 2 Risk: High: High risk from testing/treatment Medical Decision Making Level: 4 - Moderate This note was partially generated using Kaizen Platform voice recognition system, and there may be some incorrect words, spellings, and punctuation that were not noted in checking the note before saving. documented in this encounter [facility] 06-05-2024 Note HNO ID: [id number] Author: LOIS KEE MD Service: ? Author Type: Physician Type: Progress Notes Filed: 06/05/2024 10:19 Note Text: NEUROSURGERY FOLLOW UP OFFICE NOTE Lois Kee MD [facility] Date of visit: June 05, 2024 Patient Name: Mr.Donald Tim Bills Date of : 1960 Current Age: [age] year old Sex: male MRN/E# [id number] Last Office Visit: 04/06/2024 Chief Complaint: Patient [...] polyphagia and polyu (more content not included)... [facility] 05-31-2024 Telephone encounter Note Nebulizer order signed & faxed back to Ronal Zaragoza. Dalia Segura [facility] 05-31-2024 Miscellaneous Notes Nebulizer order signed & faxed back to Ronal Zaragoza. Dalia Segura documented in this encounter [facility] 05-11-2024 History of Present illness Narrative Images from the original note were not included. Called pt and Cancelled Appt VIRTUAL VISIT PROGRESS NOTE This is a virtual visit using [employer] Zoom Video Visit. It required patient-provider interaction for the medical decision making as documented below. I have communicated my name and active licensure. The patient's identity and physical location were verified at the time of this visit. Either the patient or their legal medical office representative has been informed of the risks and benefits of -- and alternatives to -- treatment through a remote evaluation and consents to proceed with the evaluation remotely. [facility] Today's Date: 05/11/2024 Name: Elis Bills : [...] guidance BILATERAL SIDES at L3-4 and L4-5 Correctional Casework Specialist Needed: Radiofrequency Ablation - YES Anticoagulant - Hold Needed: NO HOLD REQUIRED FOR THIS PROCEDURE Anticoagulant - Currently Taking: None, Plavix (7 days when hold needed) Allergies (relevant): None Scheduling - Mobility (Can Patient independently transfer on/off an OR or Procedure table?): YES (May schedule at any location) Scheduling - Additional Info: None Studies: None Functional Sabianism: NONE Referrals: No additional considerations at present [...] recent physical therapy. 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 No [...] and assume there are 5 lumbar-type vertebrae. Vp Legal Affairs: [facility] Transcribe Date/Time: Nov 19 2023 3:30P Dictated by : MECHLELE EDMONDSON MD This examination was interpreted and [...] or double vision) Respiratory: Negative (No Cough, Osnwvfbvz-yw-oqxfmf, Dyspnea on exertion, wheezing) Cardiovascular: Negative (No [...] guidance BILATERAL SIDES at L3-4 and L4-5 Correctional Casework Specialist Needed: Radiofrequency Ablation - YES Anticoagulant - Hold Needed: NO HOLD REQUIRED FOR THIS PROCEDURE Anticoagulant - Currently Taking: None, Plavix (7 days when hold needed) Allergies (relevant): None Scheduling - Mobility (Can Patient independently transfer on/off an OR or Procedure table?): YES (May schedule at any location) Scheduling - Additional Info: None Studies: None Functional Sabianism: NONE Referrals: No additional considerations at present [...] APRN.CNP Pain Management [facility] documented in this encounter [facility] 05-11-2024 Note HNO ID: [id number] Author: BERTHA SCHUMACHER APRN.NABOR Service: ? Author [...] visit. Either the patient or their legal medical office representative has been informed of the risks and benefits of -- and alternatives to -- treatment through a remote evaluation and consents to proceed with the evaluation remotely. [facility] [place] [facility] Today's Date: 05/11/2024 Name: Elis Bills [...] guidance BILATERAL SIDES at L3-4 and L4-5 Correctional Casework Specialist Needed: Radiofrequency Ablation - YES Anticoagulant - Hold Needed: NO HOLD REQUIRED FOR THIS PROCEDURE Anticoagulant - Currently Taking: None, Plavix (7 days when hold needed) Allergies (relevant): None Scheduling - Mobility (Can Patient independently transfer on/off an OR or Procedure table?): YES (May schedule at any location) Scheduling - Additional Info: None Studies: None Functional Sabianism: NONE Referrals: No additional considerations at present [...] with no relief. (more content not included)... [facility] 05-10-2024 Note Addended by: KALEE MAZARIEGOS on: 05/10/2024 08:38 AM Modules accepted: Orders [facility] 05-10-2024 Miscellaneous Notes Addended by: KALEE MAZARIEGOS on: 05/10/2024 08:38 AM Modules accepted: Orders documented in this encounter [facility] 05-10-2024 Nurse Note Order has been placed [...] ambulatory method. Patient left in good condition. [facility] 05-10-2024 Nurse Note Order has been placed [...] tablePatient s procedure was performed in an [facility] Procedure room. Pause completed at each [...] allergies Procedure Start: 754 Procedure End: 812 Correctional Casework Specialist's Name: MEHREEN Are you on a blood [...] an antibiotic: N documented in this encounter [facility] 05-10-2024 Nurse Note Procedure to be performed: L3/4 - L4/5 Unilateral Right Radiofrequency Ablation Patient was walked from exam room to procedure room and assisted onto the procedure tablePatient s procedure was performed in an [facility] Procedure room. Pause completed at each [...] allergies Procedure Start: 754 Procedure End: 812 [facility] 05-10-2024 Instructions Jael Lamas LPN - 05/10/2024 [...] care and why. documented in this encounter [facility] 05-10-2024 Note HNO ID: [id number] Author: EVERTON DECKER MD Service: ? Author Type: Physician Type: Progress Notes Filed: 05/10/2024 08:31 Note Text: [facility] Date: 05/10/2024 Patient name: Elis Bills Physician [...] or double vision) Respiratory: Negative (No Cough, Pusqhwcez-yj-edjjlx, Dyspnea on exertion, wheezing) Cardiovascular: Negative (No [...] appropriate Assessment and Plan: As noted above Robert Lee protocol documentation / Pre-Procedure Checklist: Consent: Obtained [...] and was transpo (more content not included)... [facility] 05-10-2024 History of Present illness Narrative [facility] Date: 05/10/2024 Patient name: Elis Bills Physician [...] or double vision) Respiratory: Negative (No Cough, Hcbbfyuwf-fs-iqpuqs, Dyspnea on exertion, wheezing) Cardiovascular: Negative (No [...] appropriate Assessment and Plan: As noted above Robert Lee protocol documentation / Pre-Procedure Checklist: Consent: Obtained [...] ROGERSA Pain Management [facility] Review of Systems Constitutional: Positive for activity change. Musculoskeletal: Positive for back pain and gait problem. documented in this encounter [facility] [facility] 05-10-2024 Note HNO ID: [id number] Author: CRICKET MARIE LPN Service: ? Author Type: LICENSED NURSE Type: Progress Notes Filed: 05/10/2024 08:31 Note Text: Review of Systems Constitutional: Positive for activity change. Musculoskeletal: Positive for back pain and gait problem. [facility] 05-10-2024 Nurse Note Correctional Casework Specialist's Name: MEHREEN Are you on a blood [...] Are you currently on an antibiotic: N [facility] 04-28-2024 Telephone encounter Note Images from the original note were not included. [facility] 04-28-2024 Miscellaneous Notes Images from the original [...] . Celeste Tong documented in this encounter [facility] 04-27-2024 Telephone encounter Note I spoke to Vivian Fried after my discussion with the pt and she is going to attempt to get him scheduled in that time slot, please defer to her. Thanks. [facility] 04-27-2024 Telephone encounter Note Called patient to [...] sides done. Please clarify . Celeste Tong [facility] 04-27-2024 Telephone encounter Note Opened in errori [facility] 04-27-2024 Miscellaneous Notes Opened in errori documented in this encounter [facility] 04-27-2024 Instructions Bertha Schumacher APRN.CNP - 04/27/2024 3:33 PM EDT Ice and heat as tolerated Activity as tolerated documented in this encounter [facility] 04-27-2024 History of Present illness Narrative Images from the original note were not included. VIRTUAL VISIT PROGRESS NOTE This is a virtual visit using Compu[employer] Zoom Video Visit. It required patient-provider interaction for the medical decision making as documented below. I have communicated my name and active licensure. The patient's identity and physical location were verified at the time of this visit. Either the patient or their legal medical office representative has been informed of the risks and benefits of -- and alternatives to -- treatment through a remote evaluation and consents to proceed with the evaluation remotely. [facility] Today's Date: 04/27/2024 Name: Elis Bills : 1960 Purpose: Follow-up Patient Evaluation - This is an established patient, returning today for continued evaluation and management of the chief complaint noted below (Telemedicine) Chief complaint: low back pain Referring Clinician: Pertinent Past Medical History: COPD, Obesity, HTN, HLD, CVA Pertinent Past Surgeries: B/L THR This is a virtual visit via Zoom, Phone and/or CompuMedhart. It required patient-provider interaction for the medical [...] guidance BILATERAL SIDES at L3-4 and L4-5 Correctional Casework Specialist Needed: Medial Branch Blocks - YES Anticoagulant - Hold Needed: NO HOLD REQUIRED FOR THIS PROCEDURE Anticoagulant - Currently Taking: None Allergies (relevant): None Scheduling - Mobility (Can Patient independently transfer on/off an OR or Procedure table?): YES (May schedule at any location) Scheduling - Additional Info: None Studies: None Functional Sabianism: NONE Referrals: No additional considerations at present [...] recent physical therapy. 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 No [...] and assume there are 5 lumbar-type vertebrae. Vp Legal Affairs: [employer] Transcribe Date/Time: Nov 19 2023 3:30P [...] or double vision) Respiratory: Negative (No Cough, Rqdmnjanx-um-ifqwxz, Dyspnea on exertion, wheezing) Cardiovascular: Negative (No [...] guidance BILATERAL SIDES at L3-4 and L4-5 Correctional Casework Specialist Needed: Radiofrequency Ablation - YES Anticoagulant - Hold Needed: NO HOLD REQUIRED FOR THIS PROCEDURE Anticoagulant - Currently Taking: None, Plavix (7 days when hold needed) Allergies (relevant): None Scheduling - Mobility (Can Patient independently transfer on/off an OR or Procedure table?): YES (May schedule at any location) Scheduling - Additional Info: None Studies: None Functional Sabianism: NONE Referrals: No additional considerations at present [...] APRN.CNP Pain Management [facility] documented in this encounter [facility] 04-27-2024 Note HNO ID: [id number] Author: BERTHA SCHUMACHER APRN.CNP Service: ? Author Type: Nurse Practitioner Type: Progress Notes Filed: 04/27/2024 15:33 Note Text: VIRTUAL VISIT PROGRESS NOTE This is a virtual visit using [employer] Zoom Video Visit. It required patient-provider interaction for the medical decision making as documented below. I have communicated my name and active licensure. The patient's identity and physical location were verified at the time of this visit. Either the patient or their legal medical office representative has been informed of the risks and benefits of -- and alternatives to -- treatment through a remote evaluation and consents to proceed with the evaluation remotely. [facility] Today's Date: 04/27/2024 Name: Elis Bills : 1960 Purpose: Follow-up Patient Evaluation - This is an established patient, returning today for continued evaluation and management of the chief complaint noted below (Telemedicine) Chief complaint: low back pain Referring Clinician: Pertinent Past Medical History: COPD, Obesity, HTN, HLD, CVA Pertinent Past Surgeries: B/L THR This is a virtual visit via Zoom, Phone and/or CompuMedhart. It required patient-provider interaction for the medical [...] guidance BILATERAL SIDES at L3-4 and L4-5 Correctional Casework Specialist Needed: Medial Branch Blocks - YES Anticoagulant - Hold Needed: NO HOLD REQUIRED FOR THIS PROCEDURE Anticoagulant - Currently Taking: None Allergies (relevant): None Scheduling - Mobility (Can Patient independently transfer on/off an OR or Procedure table?): YES (May schedule at any location) Scheduling - Additional Info: None Studies: None Functional Sabianism: NONE Referrals: No additional considerations at present [...] recent physical therapy. 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 [facility] 04-26-2024 Nurse Note Order [...] ambulatory method. Patient left in good condition. [facility] 04-26-2024 Nurse Note Order has [...] tablePatient s procedure was performed in an [facility] Procedure room. Pause completed at each [...] allergies Procedure Start: 807 Procedure End: 817 Correctional Casework Specialist's Name: Mehreen Are you on a blood [...] an antibiotic: no documented in this encounter [facility] 04-26-2024 Instructions Greta Guillen LPN - 04/26/2024 [...] care and why. documented in this encounter [facility] 04-26-2024 Note HNO ID: [id number] Author: EVERTON DECKER MD Service: ? Author Type: Physician Type: Progress Notes Filed: 04/26/2024 08:51 Note Text: [facility] Date: 04/26/2024 Patient name: Elsi Bills Physician performing procedure: Everton Decker M.D., [...] or double vision) Respiratory: Negative (No Cough, Lefycxtwl-tp-lubger, Dyspnea on exertion, wheezing) Cardiovascular: Negative (No [...] appropriate Assessment and Plan: As noted above Robert Lee protocol documentation / Pre-Procedure Checklist: Consent: Obtained [...] stroke, epidural hemat (more content not included)... [facility] 04-26-2024 History of Present illness Narrative [facility] Date: 04/26/2024 Patient name: Elis Bills Physician [...] or double vision) Respiratory: Negative (No Cough, Pvvnfmfnn-td-ihoacg, Dyspnea on exertion, wheezing) Cardiovascular: Negative (No [...] appropriate Assessment and Plan: As noted above Robert Lee protocol documentation / Pre-Procedure Checklist: Consent: Obtained [...] ROGERSA Pain Management [facility] Review of Systems Constitutional: Positive for activity [...] is not nervous/anxious. documented in this encounter [facility] 04-26-2024 Nurse Note Procedure to be performed: L3/4 - L4/5 Bilateral Medial Branch Block without steroid Patient was wheeled on stretcher from pre op bay to procedure room and assisted onto the procedure tablePatient s procedure was performed in an [facility] Procedure room. Pause completed at each [...] allergies Procedure Start: 807 Procedure End: 817 [facility] 04-26-2024 Note HNO ID: [id number] Author: GRETA GUILLEN LPN Service: ? Author [...] suicidal ideas. The patient is not nervous/anxious. [facility] 04-26-2024 Nurse Note Correctional Casework Specialist's Name: Mehreen Are you on a blood [...] you currently on an antibiotic: no T [facility] 04-06-2024 History of Present illness Narrative Images from the original note were not included. NEUROSURGERY CONSULT NOTE Lois Kee MD [facility] Date of visit: April 06, 2024 Patient Name: Mr.Donald Tim Bills Date of : 1960 Current Age: [age] year old Sex: male MRN/E# [id number] Last Office Visit: Visit date not found [...] in agreement with plan. Lois Kee MD [facility] Medical Decision Making: Problems: Moderate: New problem with uncertain prognosis Data: Unique source(s) for external note(s) reviewed: 1 Unique test result(s) reviewed: 1 Unique test(s) ordered: 1 Risk: Moderate: Moderate risk from testing/treatment Medical Decision Making Level: 4 - Moderate This note was partially generated using [employer] voice recognition system, and there may be some incorrect words, spellings, and punctuation that were not noted in checking the note before saving. documented in this encounter [facility] 04-06-2024 Note HNO ID: [id number] Author: LOIS KEE MD Service: ? Author Type: Physician Type: Progress Notes Filed: 04/06/2024 10:06 Note Text: NEUROSURGERY CONSULT NOTE Lois Kee MD [facility] Date of visit: April 06, 2024 Patient Name: Mr.Donald Tim Bills Date of : 1960 Current Age: [age] year old Sex: male MRN/E# [id number] Last Office Visit: Visit date not found [...] (chronic obstructive pulmonary disease) (HCC) Hypercholesteremia Stroke ([facility]) No past surgical history on [...] place and ti (more content not included)... [facility] 03-31-2024 Telephone encounter Note [...] No 9. Does this procedure require a company truck driver? Yes If yes, has patient been notified that a company truck driver is needed and must be present [...] their 2nd dose of the COVID vaccine.) [facility] 03-31-2024 Miscellaneous Notes Procedure(s) being scheduled: 1.Are [...] No 9. Does this procedure require a company truck driver? Yes If yes, has patient been notified that a company truck driver is needed and must be present [...] the COVID vaccine.) documented in this encounter [facility] 03-30-2024 Telephone encounter Note Medial Branch Block (Diagnostic only, NO STEROIDS) under fluoroscopic guidance BILATERAL SIDES at L3-4 and L4-5 Called pt to schedule procedure, LVChip Rubalcava [facility] 03-30-2024 Miscellaneous Notes Medial Branch Block (Diagnostic only, NO STEROIDS) under fluoroscopic guidance BILATERAL SIDES at L3-4 and L4-5 Called pt to schedule procedure, DICK Rubalcava documented in this encounter [facility] 03-30-2024 Instructions Bertha Schumacher APRN.CNP - 03/30/2024 2:44 PM EDT Ice and heat as tolerated Activity as tolerated documented in this encounter [facility] 03-30-2024 History of Present illness Narrative Images [...] visit. Either the patient or their legal medical office representative has been informed of the risks and benefits of -- and alternatives to -- treatment through a remote evaluation and consents to proceed with the evaluation remotely. [facility] Today's Date: 03/30/2024 Name: Elis Bills [...] (ILESI) under fluoroscopic guidance NONE at L4-5 Correctional Casework Specialist Needed: Epidural - YES Anticoagulant - Hold Needed: Lumbar Epidural (HOLD) Anticoagulant - Currently Taking: Plavix (7 days when hold needed) Allergies (relevant): None Scheduling - Mobility (Can Patient independently transfer on/off an OR or Procedure table?): YES (May schedule at any location) Scheduling - Additional Info: None Studies: None Functional Sabianism: NONE Referrals: No additional considerations at present [...] recent physical therapy. 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 No suspicious activity was identified. Risk Assessment: MOHINDER-7: 09/23/2023 MHOINDER - 7 SCORES Score 0 (0-4) minimal [...] and assume there are 5 lumbar-type vertebrae. Vp Legal [facility]: [facility] Transcribe Date/Time: Nov 19 2023 3:30P Dictated [...] or double vision) Respiratory: Negative (No Cough, Ndxknoujo-gh-tzcbcj, Dyspnea on exertion, wheezing) Cardiovascular: Negative (No [...] guidance BILATERAL SIDES at L3-4 and L4-5 Correctional Casework Specialist Needed: Medial Branch Blocks - YES Anticoagulant - Hold Needed: NO HOLD REQUIRED FOR THIS PROCEDURE Anticoagulant - Currently Taking: None Allergies (relevant): None Scheduling - Mobility (Can Patient independently transfer on/off an OR or Procedure table?): YES (May schedule at any location) Scheduling - Additional Info: None Studies: None Functional Sabianism: NONE Referrals: No additional considerations at present [...] APRN.CNP Pain Management [facility] documented in this encounter [facility] 03-30-2024 Note HNO ID: [id number] Author: BERTHA SCHUMACHER APRN.CNP Service: ? Author [...] visit. Either the patient or their legal medical office representative has been informed of the risks and benefits of -- and alternatives to -- treatment through a remote evaluation and consents to proceed with the evaluation remotely. [facility] Today's Date: 03/30/2024 Name: Elis Bills : 1960 Purpose: Follow-up Patient Evaluation - This is an established patient, returning today for continued evaluation and management of the chief complaint noted below (Telemedicine) Chief complaint: low back pain Referring Clinician: Pertinent Past Medical History: COPD, Obesity, HTN, HLD, CVA Pertinent Past Surgeries: B/L THR This is a virtual visit via Zoom, Phone and/or CompuMedhart. It required patient-provider interaction for the medical [...] (ILESI) under fluoroscopic guidance NONE at L4-5 Correctional Casework Specialist Needed: Epidural - YES Anticoagulant - Hold Needed: Lumbar Epidural (HOLD) Anticoagulant - Currently Taking: Plavix (7 days when hold needed) Allergies (relevant): None Scheduling - Mobility (Can Patient independently transfer on/off an OR or Procedure table?): YES (May schedule at any location) Scheduling - Additional Info: None Studies: None Functional Sabianism: NONE Referrals: No additional considerations at present [...] changing pain manage (more content not included)... [facility] 03-17-2024 Telephone encounter Note Spoke with patient following up from procedure. Patient states they are doing well, no questions or concerns at this time. Stephan Pacheco CMA [facility] 03-17-2024 Miscellaneous Notes Spoke with patient following up from procedure. Patient states they are doing well, no questions or concerns at this time. Stephan Pacheco CMA documented in this encounter [facility] 03-16-2024 History of Present illness Narrative [facility] Date: 03/16/2024 Patient name: Elis Bills Physician [...] or double vision) Respiratory: Negative (No Cough, Yhhucfsji-ch-tzbuxz, Dyspnea on exertion, wheezing) Cardiovascular: Negative (No Chest Pain, Tightness, Pressure, Palpitations) Gastrointestinal: Negative (No Abdominal pain, Nausea, Vomiting, Constipation, Diarrhea) Genitourinary: Negative (No dysuria) Hematologic: Negative (No bleeding, bruising) OB: is Denied or Not Applicable Endocrine: Negative (No hot/cold intolerance) Psychiatric: Negative (No depression, anxiety or suicidal ideation) PAST MEDICAL HISTORY No date: COPD (chronic obstructive pulmonary disease) ([facility]) No date: Hypercholesteremia No date: Stroke ([facility]) No past surgical history on [...] appropriate Assessment and Plan: As noted above Robert Lee protocol documentation / Pre-Procedure Checklist: Consent: Obtained [...] ROGERSA Pain Management [facility] Review of Systems Constitutional: Negative for activity change, appetite change, chills and fever. Genitourinary: Negative for difficulty urinating. Musculoskeletal: Positive for arthralgias, back pain and gait problem. Negative for joint swelling, myalgias, neck pain and neck stiffness. Neurological: Negative for weakness, numbness and headaches. Psychiatric/Behavioral: Negative for dysphoric mood, sleep disturbance and suicidal ideas. The patient is not nervous/anxious. documented in this encounter [facility] 03-16-2024 Note HNO ID: [id number] Author: EVERTON DECKER MD Service: ? Author Type: Physician Type: Progress Notes Filed: 03/16/2024 11:37 Note Text: [facility] Date: 03/16/2024 Patient name: Elis Bills Physician [...] or double vision) Respiratory: Negative (No Cough, Beizotinq-bd-wxnywz, Dyspnea on exertion, wheezing) Cardiovascular: Negative (No [...] appropriate Assessment and Plan: As noted above Robert Lee protocol documentation / Pre-Procedure Checklist: Consent: Obtained in writing prior to procedure I had a nice discussion with the patient today about their current pain and the pathology that could be causing it We discussed different treatment options, including risks, benefits and alternatives. We agreed to proceed as previously discussed, or the (more content not included)... [facility] 03-16-2024 Nurse Note Order [...] ambulatory method. Patient left in good condition. [facility] 03-16-2024 Nurse Note Order has been [...] tablePatient s procedure was performed in an [facility] Procedure room. Pause completed at each [...] allergies Procedure Start: 1106 Procedure End: 1111 Correctional Casework Specialist's Name: MEHREEN Are you on a blood [...] receive one? N documented in this encounter [facility] 03-16-2024 Instructions Cricket Marie LPN - 03/16/2024 [...] care and why. documented in this encounter [facility] 03-16-2024 Nurse Note Procedure to be performed: L4/L5 Interlaminar Epidural Steroid Injection Patient was wheeled on stretcher from pre op bay to procedure room and assisted onto the procedure tablePatient s procedure was performed in an [facility] Procedure room. Pause completed at each [...] allergies Procedure Start: 1107 Procedure End: 1111 [facility] 03-16-2024 Note HNO ID: [id number] Author: KARTHIK LOPEZ LPN Service: ? Author [...] suicidal ideas. The patient is not nervous/anxious. [facility] 03-16-2024 Nurse Note Correctional Casework Specialist's Name: MEHREEN Are you on a blood [...] are you scheduled to receive one? N [facility] 03-16-2024 Telephone encounter Note Could you proof read this please. Thanks. [facility] 03-16-2024 Miscellaneous Notes Could you proof read this please. Thanks. documented in this encounter [facility] 03-15-2024 Telephone encounter Note Called and spoke with patient and informed him that he will need to speak with Financial Clearance before I can place him back on the schedule for this procedure. I will need this procedure paid for and cleared by them before we can reschedule. Patient voiced understanding. Vivian Fried [facility] 03-15-2024 Miscellaneous Notes Called and spoke with [...] (Caregivers Name): n If No - Which [facility] Leadership Inspector Motor Vehicles Did You Speak With Regarding This Patient: n Was an appointment scheduled (Y/N): n/a Reason patient was requesting visit (RFV/signs and symptoms/diagnosis) : procedure Person calling if other than patient: Spouse, Mehreen Bills Return call to if other than patient: y Best contact number: [phone] Thank you, Johnny Hdez March 14, 2024 4:14 PM documented in this encounter [facility] 03-15-2024 Telephone encounter Note ----- Message from Johnny Owusu sent at [...] with this appt. Was Patient Referred to [facility]/Seek Emergency Treatment (Y/N): n Did Patient Agree (Y/N): n Was An Attempt Made To Transfer The Patient To The Office (Y/N): n Were You Able To Reach Someone At The Office (Y/N): n If Yes - Patient Was Transferred To (Caregivers Name): n If No - Which [facility] Leadership Inspector Motor Vehicles Did You Speak With Regarding This Patient: n Was an appointment scheduled (Y/N): n/a Reason patient was requesting visit (RFV/signs and symptoms/diagnosis) : procedure Person calling if other than patient: Spouse, Mehreen Bills Return call to if other than patient: y Best contact number: [phone] Thank you, Johnny Hdez March 14, 2024 4:14 PM [facility] 03-13-2024 Telephone encounter Note Patient Last Name [...] Information Insurance Name MARANDA Patient's Insurance Case# [id number] Ordering Provider Bertha Schumacher Approved Services N/A Denied Services [id number] - NJX DX/THER SBST INTRLMNR LMBR/SAC W/IMG GDN Alternative Recommendation N/A *Service which can be approved in place of denied service. Clinical Documentation Provided Office Visit 11/11/2023, 09/23/2023 [facility] 02/24/2024, 12/22/2023, 11/25/2023, 10/29/2023 Procedure 12/16/2023, 10/28/2023 CT CHEST WO IVCON 12/29/2023 XR CHEST 1V FRONTAL 12/01/2023 MRI LUMBAR SPINE WO IVCON 11/19/2023 CT CHEST WO IVCON 09/02/2023 Peer to Peer Instructions Peer to Peer , options: 1-2 Does Peer to Peer need to be scheduled? Yes Who can complete the Peer to Peer? Dr, PA, FURNITURE TECHNICIAN, LN Additional Peer to Peer Instructions You can call for the peer to peer at the date and time of your convenience Appeal Instructions Appeal Address [address] [address], [facility], [address] Appeal Fax# No fax# available Required Form(s) Yes, Please see attached or can be found at [email or web address] ([employer]). Additional Appeal Instructions Send it attention to: Appeals department. Include: coversheet with patient's and case information, a formal appeal letter and attach any pertinent supporting clinical documentation. Also, insurance requires a formal appeal form filled out if you would like to submit a written appeal. Facility Information Location [facility] [id number] Tax ID# [id number] [facility] [facility] Miscellaneous Notes Patient Last Name SANJU [...] Information Insurance Name MMO Patient's Insurance Case# [id number] Ordering Provider Bertha Schumacher Approved Services N/A Denied Services [id number] - NJX DX/THER SBST INTRLMNR LMBR/SAC W/IMG GDN Alternative Recommendation N/A *Service which can be approved in place of denied service. Clinical Documentation Provided Office Visit 11/11/2023, 09/23/2023 [facility] 02/24/2024, 12/22/2023, 11/25/2023, 10/29/2023 Procedure 12/16/2023, 10/28/2023 CT CHEST WO IVCON 12/29/2023 XR CHEST 1V FRONTAL 12/01/2023 MRI LUMBAR SPINE WO IVCON 11/19/2023 CT CHEST WO IVCON 09/02/2023 Peer to Peer Instructions Peer to Peer , options: 1-2 Does Peer to Peer need to be scheduled? Yes Who can complete the Peer to Peer? Dr, PA, FURNITURE TECHNICIAN, LN Additional Peer to Peer Instructions You can call for the peer to peer at the date and time of your convenience Appeal Instructions Appeal Address [address] [address], [facility], [address] Appeal Fax# No fax# available Required Form(s) Yes, Please see attached or can be found at [email or web address] ([employer]). Additional Appeal Instructions Send it attention to: Appeals department. Include: coversheet with patient's and case information, a formal appeal letter and attach any pertinent supporting clinical documentation. Also, insurance requires a formal appeal form filled out if you would like to submit a written appeal. Facility Information Location [facility] [id number] Tax ID# [id number] documented in this encounter [facility] 02-25-2024 Telephone encounter Note Procedure(s) being scheduled: [...] No 9. Does this procedure require a company truck driver? Yes If yes, has patient been notified that a company truck driver is needed and must be present [...] dose of the COVID vaccine.) Diane Lagos [facility] 02-25-2024 Miscellaneous Notes Procedure(s) being scheduled: 1.Are [...] No 9. Does this procedure require a company truck driver? Yes If yes, has patient been notified that a company truck driver is needed and must be present [...] vaccine.) Diane Lagos documented in this encounter [facility] 02-25-2024 Telephone encounter Note The Anticoag Management letter has been sent to the PCP, Pilar Steele DO via facsimile. [phone] Diane Lagos [facility] 02-25-2024 Miscellaneous Notes The Anticoag Management letter has been sent to the PCP, Pilar Steele DO via facsimile. [phone] Daine Lagos documented in this encounter [facility] 02-25-2024 Telephone encounter Note Outbound Call to patient to schedule Injection - Epidural Steroid Injection - Interlaminar Approach (ILESI) under fluoroscopic guidance NONE at L4-5 (Currently Taking: Plavix needs 7 day hold) - Reached ; [facility] [phone] (cell/home) JASS Block [facility] 02-25-2024 Miscellaneous Notes Outbound Call to patient to schedule Injection - Epidural Steroid Injection - Interlaminar Approach (ILESI) under fluoroscopic guidance NONE at L4-5 (Currently Taking: Plavix needs 7 day hold) - Reached ; [facility] [phone] (cell/home) JASS Block documented in this encounter [facility] 02-24-2024 Instructions Bertha Schumacher APRN.CNP - 02/24/2024 4:21 PM EDT Ice and heat as tolerated Activity as tolerated documented in this encounter [facility] 02-24-2024 History of Present illness Narrative Images [...] visit. Either the patient or their legal medical office representative has been informed of the risks and benefits of -- and alternatives to -- treatment through a remote evaluation and consents to proceed with the evaluation remotely. [facility] [place] Today's Date:02/24/2024 Name: Elis Bills : [...] Medications Interventional Procedures: None Studies: None Functional Sabianism: NONE Referrals: No additional considerations at present [...] recent physical therapy. 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 No [...] and assume there are 5 lumbar-type vertebrae. Vp Legal Affairs: [facility] Transcribe Date/Time: Nov 19 2023 3:30P Dictated by : MECHELLE EDMONDSON MD This examination was interpreted and the report reviewed and electronically signed by: MCEHELLE EDMONDSON MD on Nov 19 2023 3:44PM [...] or double vision) Respiratory: Negative (No Cough, Uqiibvcid-is-qqhoso, Dyspnea on exertion, wheezing) Cardiovascular: Negative (No [...] (ILESI) under fluoroscopic guidance NONE at L4-5 Correctional Casework Specialist Needed: Epidural - YES Anticoagulant - Hold Needed: Lumbar Epidural (HOLD) Anticoagulant - Currently Taking: Plavix (7 days when hold needed) Allergies (relevant): None Scheduling - Mobility (Can Patient independently transfer on/off an OR or Procedure table?): YES (May schedule at any location) Scheduling - Additional Info: None Studies: None Functional Sabianism: NONE Referrals: No additional considerations at present [...] APRN.CNP Pain Management [facility] documented in this encounter [facility] 02-24-2024 Note HNO ID: [id number] Author: BERTHA SCHUMACHER APRN.CNP Service: ? Author [...] visit. Either the patient or their legal medical office representative has been informed of the risks and benefits of -- and alternatives to -- treatment through a remote evaluation and consents to proceed with the evaluation remotely. [facility] Today's Date:02/24/2024 Name: Elis Bills : 1960 [...] Medications Interventional Procedures: None Studies: None Functional Sabianism: NONE Referrals: No additional considerations at present [...] is unknown. RED (more content not included)... [facility] 01-24-2024 Telephone encounter Note Please assist Catherine Champion APRN.NABOR [facility] Work Phone: 01-24-2024 Miscellaneous Notes Please assist Catherine Champion APRN.CNP documented in this encounter [facility] 01-17-2024 Telephone encounter Note TIMO: 11/11/2023 Future OV: 02/10/2024 Call transferred to [place] RN from [address] Mehreen, patient's called. Patient name and [...] worsening SOB. is agreeable and verbalized understanding. [facility] 01-17-2024 Miscellaneous Notes TIMO: 11/11/2023 Future OV: 02/10/2024 Call transferred to [place] NEENA from [address] Mehreen, patient's called. Patient name and [...] and verbalized understanding. documented in this encounter [facility] 01-11-2024 Telephone encounter Note Pharmacy faxed requesting the following refill. TIMO: 11/11/23-patient requesting 90 day supply [facility]. Requested Prescriptions Pending Prescriptions Disp Refills mometasone-formoterol (DULERA) 200-5 mcg/actuation inhaler 39 g 3 Sig: Inhale 2 Puffs as instructed two times a day. Patient Phone numbers: [phone] (home) Request is for script(s) to be escript to pharmacy. Edel Cramer [facility] 01-11-2024 Miscellaneous Notes Pharmacy faxed requesting the following refill. TIMO: 11/11/23-patient requesting 90 day supply be sent to [facility]. Requested Prescriptions Pending Prescriptions Disp Refills mometasone-formoterol (DULERA) 200-5 mcg/actuation inhaler 39 g 3 Sig: Inhale 2 Puffs as instructed two times a day. Patient Phone numbers: [phone] (home) Request is for script(s) to be escript to pharmacy. Edel Cramer documented in this encounter [facility] 01-06-2024 Telephone encounter Note Rx mail pharmacy [...] for wheezing/shortness of breath. Patient Phone numbers: [phone] (home) Request is for script(s) to be escript to mail order [facility]. Dalia Segura [facility] 01-06-2024 Miscellaneous Notes Rx mail pharmacy faxed [...] for wheezing/shortness of breath. Patient Phone numbers: [phone] (home) Request is for script(s) to be escript to mail order [facility]. Dalia Segura documented in this encounter [facility] 01-03-2024 Telephone encounter Note Attempted to contact patient via telephone. Patient telephone extreme static and was unable to speak with patient. Sent [employer] message regarding message below. Alen Mayorga MD15 minutes ago (3:05 PM) CT chest shows stable small/tiny nodules. Further decision for continued surveillance to be made by Dr. Womack at subsequent office visits. CT shows dilated pulmonary artery but recent Echo shows normal RV size and function. Brooke Her, RN [facility] 01-03-2024 Miscellaneous Notes Attempted to contact patient via telephone. Patient telephone extreme static and was unable to speak with patient. Sent [employer] message regarding message below. Alen Mayorga MD15 [...] size and function. documented in this encounter [facility] 01-03-[address] chest shows stable small/tiny nodules. Further decision for continued surveillance to be made by Dr. Womack at subsequent office visits. CT shows dilated pulmonary artery but recent Echo shows normal RV size and function. [facility] Work Phone: 12-29-2023 History of Present illness [...] PATIENT PRESENTS WITH AN IMPLANTABLE OR ATTACHED AGRICULTURAL SERVICES DIRECTOR: No RADIOLOGY DEPARTMENT: CT; Exam(s) Completed: Chest PERIPHERAL IV DATA: Not applicable SIGNED BY: ADRIANA Gaspar) December 29, 2023 11:15 AM documented in this encounter [facility] 12-29-2023 Note HNO ID: [id number] Author: ROSE VICTORIA RT(R) Service: Radiology Author Type: Irrigator Head Type: Progress Notes Filed: 12/29/2023 11:15 Note [...] PATIENT PRESENTS WITH AN IMPLANTABLE OR ATTACHED AGRICULTURAL SERVICES DIRECTOR: No RADIOLOGY DEPARTMENT: CT; Exam(s) Completed: Chest PERIPHERAL IV DATA: Not applicable SIGNED BY: RT Chasity(R) December 29, 2023 11:15 AM [facility] 12-22-2023 History of Present [...] visit. Either the patient or their legal medical office representative has been informed of the risks and benefits of -- and alternatives to -- treatment through a remote evaluation and consents to proceed with the evaluation remotely. [facility] Today's Date:12/22/23 Name: Elis Bills : 1960 Purpose: Post-Procedure Evaluation (Telemedicine) Chief complaint: low back pain Referring Clinician: Pertinent Past Medical History: COPD, Obesity, HTN, HLD, CVA Pertinent Past Surgeries: B/L THR This is a virtual visit via Zoom, Phone and/or CompuMedhart. It required patient-provider interaction for the medical [...] recent physical therapy. 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 No [...] and assume there are 5 lumbar-type vertebrae. Vp Legal Affairs: [facility] Transcribe Date/Time: Nov 19 2023 3:30P [...] or double vision) Respiratory: Negative (No Cough, Njeyqygoy-is-jhvzfp, Dyspnea on exertion, wheezing) Cardiovascular: Negative (No [...] Medications Interventional Procedures: None Studies: None Functional Sabianism: NONE Referrals: No additional considerations at present [...] APRN.CNP [facility] Management [facility] documented in this encounter [facility] 12-22-2023 Note HNO ID: [id number] Author: YASHIRA GONSALES APRN.CNP Service: ? Author [...] visit. Either the patient or their legal medical office representative has been informed of the risks and benefits of -- and alternatives to -- treatment through a remote evaluation and consents to proceed with the evaluation remotely. [facility] Today's Date:12/22/23 Name: Elis Bills : 1960 Purpose: Post-Procedure Evaluation (Telemedicine) Chief complaint: low back pain Referring Clinician: Pertinent Past Medical History: COPD, Obesity, HTN, HLD, CVA Pertinent Past Surgeries: B/L THR This is a virtual visit via Zoom, Phone and/or CompuMedhart. It required patient-provider interaction for the medical [...] recent physical therapy. 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 [facility] 12-22-2023 Instructions Yashira Gonsales APRN.PRODUCTION MACHINE SHOP SUPERVISOR - 12/22/2023 3:52 PM EDT Ice and heat as tolerated Activity as tolerated documented in this encounter [facility] 12-17-2023 Telephone encounter Note Cutesy call made to follow-up after procedure. No answer, unable to leave a message. Greta Guillen LPN [facility] 12-17-2023 Miscellaneous Notes Cutesy call made to follow-up after procedure. No answer, unable to leave a message. Greta Guillen LPN documented in this encounter [facility] 12-16-2023 Note HNO ID: [id number] Author: DHIRAJ HERR MD Service: ? Author Type: Physician Type: Progress Notes Filed: 12/16/2023 12:55 Note Text: [facility] Date: 12/16/2023 Patient name: Elis Bills Physician [...] or double vision) Respiratory: Negative (No Cough, Hwgtyswbv-ji-jeeack, Dyspnea on exertion, wheezing) Cardiovascular: Negative (No [...] appropriate Assessment and Plan: As noted above Robert Lee protocol documentation / Pre-Procedure Checklist: Consent: Obtained [...] nerve damage, paral (more content not included)... [facility] 12-16-2023 History of Present illness Narrative [facility] Date: 12/16/2023 Patient name: Elis Bills Physician [...] or double vision) Respiratory: Negative (No Cough, Duurysxkr-sf-vaveqh, Dyspnea on exertion, wheezing) Cardiovascular: Negative (No [...] appropriate Assessment and Plan: As noted above Robert Lee protocol documentation / Pre-Procedure Checklist: Consent: Obtained [...] MD Pain Management [facility] Review of Systems Constitutional: Positive for activity [...] is not nervous/anxious. documented in this encounter [facility] 12-16-2023 Nurse Note Order has been placed [...] ambulatory method. Patient left in good condition. [facility] 12-16-2023 Nurse Note Order has been placed [...] tablePatient s procedure was performed in an [facility] Procedure room. Pause completed at each [...] allergies Procedure Start: 1047 Procedure End: 1051 Correctional Casework Specialist's Name: mehreen Are you on a blood [...] receive one? n documented in this encounter [facility] 12-16-2023 Instructions Jael Lamas LPN - 12/16/2023 [...] care and why. documented in this encounter [facility] 12-16-2023 Nurse Note Procedure to be performed: BILATERAL L3/L4, L4/L5 LUMBAR MEDIAL BRANCH BLOCK Patient was wheeled on stretcher from pre op bay to procedure room and assisted onto the procedure tablePatient s procedure was performed in an [facility] Procedure room. Pause completed at each [...] allergies Procedure Start: 1047 Procedure End: 1051 [facility] 12-16-2023 Note HNO ID: [id number] Author: KALEE MAZARIEGOS LPN Service: ? Author [...] suicidal ideas. The patient is not nervous/anxious. [facility] 12-16-2023 Nurse Note Correctional Casework Specialist's Name: mehreen Are you on a blood [...] you scheduled to receive one? n T [facility] 12-14-2023 Telephone encounter Note Patient Last Name [...] Information Insurance Name MARANDA Patient's Insurance Case# [id number] Ordering Provider Bertha Schumacher Approved Services N/A Denied Services [id number] - NJX DX/THER AGT PVRT FACET JT LMBR/SAC 1 LEVEL 92172 - NJX DX/THER AGT PVRT FACET JT LMBR/SAC 2ND LEVEL Alternative Recommendation N/A *Service which can be approved in place of denied service. Clinical Documentation Provided [facility] 11/25/2023, 10/29/2023 FOLLOW UP APPOITNMENT WHEN PROVIDED SPECIFIED 12/02/2023 XR CHEST 1V FRONTAL 12/01/2023 MRI LUMBAR SPINE WO IVCON 11/19/2023 Peer to Peer Instructions Peer to Peer , options: 1-2 Does Peer to Peer need to be scheduled? Yes Who can complete the Peer to Peer? Dr, PA, FURNITURE TECHNICIAN, LN Additional Peer to Peer Instructions You can call for the peer to peer at the date and time of your convenience Appeal Instructions Appeal Address [address] [address], [facility], [address] Appeal Fax# No fax# available Required Form(s) Yes, Please see attached or can be found at [email or web address] ([employer]). Additional Appeal Instructions Send it attention to: Appeals department. Include: coversheet with patient's and case information, a formal appeal letter and attach any pertinent supporting clinical documentation. Also, insurance requires a formal appeal form filled out if you would like to submit a written appeal. Facility Information Location [facility] [id number] Tax ID# [id number] [facility] 12-14-2023 Miscellaneous Notes Patient Last Name SANJU [...] Information Insurance Name MARANDA Patient's Insurance Case# [id number] Ordering Provider Bertha Schumacher Approved Services N/A Denied Services 53658 - NJX DX/THER AGT PVRT FACET JT LMBR/SAC 1 LEVEL 96187 - NJX DX/THER AGT PVRT FACET JT LMBR/SAC 2ND LEVEL Alternative Recommendation N/A *Service which can be approved in place of denied service. Clinical Documentation Provided [facility] 11/25/2023, 10/29/2023 FOLLOW UP APPOITNMENT WHEN PROVIDED SPECIFIED 12/02/2023 XR CHEST 1V FRONTAL 12/01/2023 MRI LUMBAR SPINE WO IVCON 11/19/2023 Peer to Peer Instructions Peer to Peer , options: 1-2 Does Peer to Peer need to be scheduled? Yes Who can complete the Peer to Peer? Dr, PA, FURNITURE TECHNICIAN, LN Additional Peer to Peer Instructions You can call for the peer to peer at the date and time of your convenience Appeal Instructions Appeal Address [address] [address], [facility], [address] Appeal Fax# No fax# available Required Form(s) Yes, Please see attached or can be found at [email or web address] ([employer]). Additional Appeal Instructions Send it attention to: Appeals department. Include: coversheet with patient's and case information, a formal appeal letter and attach any pertinent supporting clinical documentation. Also, insurance requires a formal appeal form filled out if you would like to submit a written appeal. Facility Information Location [facility] [id number] Tax ID# [id number] documented in this encounter [facility] 12-01-2023 Note HNO ID: [id number] Author: DEE GARCIA RN Service: Care Management [...] Indicated Advance Directives Current Advance Directive: None Commercial Teller Attempted to Assist with AD Completion: Yes [...] Prep Current Services/Equipment Discharge Planning Patient Goal(s): [place] of Choice Explained: Are you interested in [...] IV antibx. 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 He uses a nebulizer and inhalers at home. His pcp is Dr Steele and he sees Pulmonary in [place]. He stated he has upcoming appts for spots on lung. His support is his but verbalizes stress with his work and has trouble sleeping at night. He has rx coverage and denies any financial concerns. Discussed scheduling sleep study at [facility]. Pt declined- he stated his is scheduling a Home sleep study through [facility]. Will follow SIGNATURE: Dee Garcia RN PATIENT NAME: Elis Bills DATE: December 01, 2023 TIME: 3:37 PM CONTACT #: [phone] [facility] 11-29-2023 Telephone encounter Note [...] scheduled for the Lumbar MBB's. Vivian Fried [facility] 11-29-2023 Miscellaneous Notes Received a voicemail from [...] MBB's. Vivian Fried documented in this encounter [facility] 11-26-2023 Telephone encounter Note Patient was called and spoke with. Patient is going to have his call later to schedule the appointment since he was placed on a blood thinner and is 100% sure what it is. Toya Tucker [facility] 11-26-2023 Miscellaneous Notes Patient was called and spoke with. Patient is going to have his call later to schedule the appointment since he was placed on a blood thinner and is 100% sure what it is. Toya Tucker documented in this encounter [facility] 11-25-2023 Instructions Bertha Schumacher APRN.CNP - 11/25/2023 2:28 PM EDT Ice and heat as tolerated Activity as tolerated documented in this encounter [facility] 11-25-2023 History of Present illness Narrative Images from the original note were not included. VIRTUAL VISIT PROGRESS NOTE This is a virtual visit using LIS[employer]om Video Visit. It required patient-provider interaction for the medical decision making as documented below. I have communicated my name and active licensure. The patient's identity and physical location were verified at the time of this visit. Either the patient or their legal medical office representative has been informed of the risks and benefits of -- and alternatives to -- treatment through a remote evaluation and consents to proceed with the evaluation remotely. [facility] Today's Date: 11/25/2023 Name: Elis Bills [...] and validated on 11/25/2023 by Bertha Schumacher APRN.PRODUCTION MACHINE SHOP SUPERVISOR All prescriptions have been APPROPRIATELY filled. No [...] and assume there are 5 lumbar-type vertebrae. Vp Legal Affairs: [facility] Transcribe Date/Time: Nov 19 2023 3:30P Dictated [...] guidance BILATERAL SIDES at L4-5 and L5-S1 Correctional Casework Specialist Needed: Medial Branch Blocks - YES Anticoagulants: None, Plavix (7 days when hold needed) Relevant Allergies: None Additional Info: None Studies: None Functional Sabianism: NONE Referrals: No additional considerations at present [...] APRN.CNP Pain Management [facility] documented in this encounter [facility] 11-25-2023 Note HNO ID: [id number] Author: BERTHA SCHUMACHER APRN.CNP Service: ? Author Type: Nurse Practitioner Type: Progress Notes Filed: 11/25/2023 14:35 Note Text: VIRTUAL VISIT PROGRESS NOTE This is a virtual visit using [employer] Video Visit. It required patient-provider interaction for the medical decision making as documented below. I have communicated my name and active licensure. The patient's identity and physical location were verified at the time of this visit. Either the patient or their legal medical office representative has been informed of the risks and benefits of -- and alternatives to -- treatment through a remote evaluation and consents to proceed with the evaluation remotely. [facility] Today's Date: 11/25/2023 Name: Elis Bills [...] and validated on 11/25/2023 by Bertha Schumacher APRN.PRODUCTION MACHINE SHOP SUPERVISOR All prescriptions have been APPROPRIATELY filled. No [...] WO IVCON / (more content not included)... [facility] 11-23-2023 Telephone encounter Note Spoke with patient and scheduled virtual visit with Bertha Schumacher on 11/25/2023 to discuss MRI Albertina Martin Braiding Machine Operator to Dr. Everton Decker MD / Bertha Schumacher CNP [facility] [address] [place] [address] Phone. [phone] / Fax. [phone] [facility] 11-23-2023 Miscellaneous Notes Spoke with patient and scheduled virtual visit with Bertha Schumacher on 11/25/2023 to discuss MRI Albertina Martin Braiding Machine Operator to Dr. Everton Decker MD / Bertha Schumacher CNP [facility] [address] [place] [address] Phone. [phone] / Fax. [phone] Hi, can you please call this pt and set up for a virtual visit with me this to discuss his MRI results? Thanks. documented in this encounter [facility] 11-21-2023 Telephone encounter Note Hi, can you please call this pt and set up for a virtual visit with me this to discuss his MRI results? Thanks. [facility] 11-19-2023 History of Present illness Narrative Radiology [...] PATIENT PRESENTS WITH AN IMPLANTABLE OR ATTACHED AGRICULTURAL SERVICES DIRECTOR: No RADIOLOGY DEPARTMENT: MR; Exam(s) Completed: Spine: Lumbar spine PERIPHERAL IV DATA: Not applicable SIGNED BY: Malena Yoder A.A.S.,RT (R) (CT)(MR) November 19, 2023 3:40 PM documented in this encounter [facility] 11-11-2023 Instructions Shelton Aguilera MD - 11/11/2023 [...] the following website: https://[place].quitlogix.org/en-US / OR Call 1-901-OCBY-NOW ([phone]) Use patches and gum both at the [...] Nicotine replacement therapy. documented in this encounter [facility] 11-11-2023 History of Present illness Narrative Images from the original note were not included. [facility] Progress Note Mr. Bills is a 63 year old male who presents to the [facility]. Consultation requested by Dr. 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 Other environmental/occupational [...] listed below personally reviewed and analyzed by sd CBC with diff: No results found for [...] DATE OF EXAM: Sep 02 2023 1:21PM [facility] 0541 - CT CHEST WO IVCON / [...] No abnormality in the imaged upper abdomen. Senior Talent Acquisition Specialist (topogram) images: No additional findings. Impression: IMPRESSION: [...] obtained in 12 months --END OF FINDING-- Vp Legal Affairs: YAIR Transcribe Date/Time: Sep 05 2023 11:40A Dictated by : WILLIAM QUINTANA MD This examination was interpreted and the report reviewed and electronically signed by: WILLIAM QUINTANA MD on Sep 05 2023 11:47AM EST No results found. Echo: No results found for this or any previous visit (from the past [address] hour(s)). Vaccines: Immunization History Administered Date(s) Administered tetanus diphtheria pertussis (Tdap) vaccine, age 7+ yr (ADACEL, BOOSTRIX) 06/14/2023 Assessment: Mr. Bills is a 63 year old male who presents to the [facility] for evaluation of allergic asthma and tobacco [...] trapping, normal TLC. Normal FEV1/FVC but low [id number]. Chest CT with multiple sub<6mm lung nodules. [...] [facility] Pager / phone [phone] November 11, 2023 3547 documented in this encounter [facility] 10-29-2023 Instructions Bertha Schumacher APRN.CNP - 10/29/2023 4:27 PM EDT Ice and heat as tolerated Activity as tolerated documented in this encounter [facility] 10-29-2023 History of Present illness Narrative VIRTUAL VISIT PROGRESS NOTE This is a virtual visit using Audio Only Visit. It required patient-provider interaction for the medical decision making as documented below. I have communicated my name and active licensure. The patient's identity and physical location were verified at the time of this visit. Either the patient or their legal medical office representative has been informed of the risks [...] 1. Lumbar spondylosis MRI LUMBAR SPINE WO [facility] Routine As patient did not get relief from the medial branch nerve block we will abort the planned to continue with the series and abort the RFA plan. Patient stated understanding. Patient sent stating that he did have physical therapy at [facility] which is part of [facility] plan. Will get the notes from [facility] and order an MRI of the lumbar [...] Bertha Schumacher APRN.NABOR documented in this encounter [facility] 10-28-2023 History of Present illness Narrative [facility] Date: 10/28/2023 Patient name: Elis Bills Physician [...] or double vision) Respiratory: Negative (No Cough, [id number], Dyspnea on exertion, wheezing) Cardiovascular: Negative (No [...] appropriate Assessment and Plan: As noted above Robert Lee protocol documentation / Pre-Procedure Checklist: Consent: Obtained [...] MD Pain Management [facility] Review of Systems Constitutional: Positive for activity [...] is not nervous/anxious. documented in this encounter [facility] 10-28-2023 Nurse Note Order has been placed [...] tablePatient s procedure was performed in an [facility] Procedure room. Pause completed at each [...] allergies Procedure Start: 950 Procedure End: 956 Correctional Casework Specialist's Name: mehreen Are you on a blood [...] receive one? n documented in this encounter [facility] 10-28-2023 Instructions Jael Lamas LPN - 10/28/2023 [...] care and why. documented in this encounter [facility] 10-19-2023 Miscellaneous Notes Rx mail pharmacy faxed [...] two times a day. Patient Phone numbers: [phone] (home) Request is for script(s) to be escript to mail order [facility]. Dalia Segura documented in this encounter [facility] 10-11-2023 Miscellaneous Notes Pharmacy faxed requesting the [...] by mouth as needed. Patient Phone numbers: [phone] (home) Request is for script(s) to be escript to mail order [facility]. Edel Cramer documented in this encounter [facility] 09-29-2023 Miscellaneous Notes I will send in a medrol dose lalo to see if this will help. documented in this encounter [facility] 09-23-2023 Miscellaneous Notes Procedure(s) being scheduled: B/L [...] No 9. Does this procedure require a company truck driver? Yes If yes, has patient been notified that a company truck driver is needed and must be present [...] vaccine.) Albertina Martin documented in this encounter [facility] 09-23-2023 Instructions Bertha Schumacher APRN.CNP - 09/23/2023 8:52 AM EST Ice and heat as tolerated Activity as tolerated documented in this encounter [facility] 09-23-2023 History of Present illness Narrative Review [...] not included. [facility] Today's Date: 09/23/2023 Name: Elis Bills [...] recent physical therapy. 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 No [...] guidance BILATERAL SIDES at L4-5 and L5-S1 Correctional Casework Specialist Needed: Medial Branch Blocks - YES Anticoagulants: None, Plavix (7 days when hold needed) Relevant Allergies: None Additional Info: None Studies: None Functional Sabianism: NONE Referrals: No additional considerations at present [...] APRN.NABOR Pain Management [facility] documented in this encounter [facility] 09-02-2023 Miscellaneous Notes Radiology Service Progress Note [...] PATIENT PRESENTS WITH AN IMPLANTABLE OR ATTACHED AGRICULTURAL SERVICES DIRECTOR: No RADIOLOGY DEPARTMENT: CT; Exam(s) Completed: Chest PERIPHERAL IV DATA: Not applicable SIGNED BY: RT Chyna(R) September 02, 2023 1:16 PM documented in this encounter [facility] 09-02-2023 Procedure note Associated Ord er(s): NITRIC [...] TIME: 11:54 AM documented in this encounter [facility] 09-02-2023 History of Present illness Narrative PULM FUNCTION SMARTBLOCK: Provider: Shelton Aguilera MD Assisting Tech: Boo Camarillo RRT DLCO: 1 LV - Box: 1 Exhaled Nitric Oxide: 1 documented in this encounter [facility] 08-26-2023 Miscellaneous Notes Images from the original [...] Lisa Allison RN documented in this encounter [facility] 08-24-2023 Miscellaneous Notes Images from the original note were not included. Shelton Aguilera MD P [facility] Pul Nurse Pool Please instruct the [...] Lisa Allison RN documented in this encounter [facility] 08-24-2023 Miscellaneous Notes Nebulizer order signed & faxed back to [facility]. Dalai Segura documented in this encounter [facility] 08-20-2023 Miscellaneous Notes Nebulizer order, office note, insurance cards and demo sheet faxed to [facility]. Edel Cramer documented in this encounter [facility] 08-20-2023 History of Present illness Narrative PULM FUNCTION SMARTBLOCK: Provider: Shelton Aguilera MD Spirometry: 1 documented in this encounter [facility] Evaluation note No assessment inform ation available [facility] Work Phone: Evaluation note Diagnosis Dyspnea, unspecified type [facility] Chronic obstructive pulmonary disease, unspecified COPD type (HCC) [facility] Wheezing [facility] Diagnosis Lumbar spondylosis- Primary Lumbosacral spondylosis without myelopathy Chronic bilateral low back pain with sciatica, sciatica laterality unspecified [facility] Diagnosis Chronic obstructive pulmonary disease, unspecified COPD type (HCC)- Primary [facility] Diagnosis Lumbar spondylosis- Primary Lumbosacral spondylosis without myelopathy [facility] Diagnosis Lumbar spondylosis- Primary Lumbosacral spondylosis without myelopathy Chronic bilateral low back pain with sciatica, sciatica laterality unspecified Spinal 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 Spinal stenosis, lumbar region, without neurogenic claudication [facility] Diagnosis Abnormal finding of diagnostic imaging- Primary Other nonspecific (abnormal) findings on radiological and other examinations of body structure [facility] Diagnosis Lung nodules- Primary Other nonspecific abnormal finding of lung field Severe persistent asthma, unspecified whether complicated Tobacco use disorder Morbid obesity (HCC) Morbid obesity [facility] Spinal 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 Spinal stenosis, lumbar region, without neurogenic claudication [facility] Diagnosis Lumbar spondylosis- Primary Lumbosacral spondylosis without myelopathy Spinal 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 Spinal stenosis, lumbar region, without neurogenic claudication [facility] Diagnosis Severe persistent asthma, unspecified whether complicated- Primary [facility] Diagnosis Lumbar spondylosis- Primary Lumbosacral spondylosis without myelopathy [facility] Diagnosis Lumbar spondylosis- Primary Lumbosacral spondylosis without myelopathy [facility] Diagnosis Lung nodules Other nonspecific abnormal finding of lung field [facility] Diagnosis Lung nodules Other nonspecific abnormal finding of lung field Severe persistent asthma, unspecified whether complicated [facility] Diagnosis Lumbar spondylosis- Primary Lumbosacral spondylosis without myelopathy Spinal 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 Spinal stenosis, lumbar region, without neurogenic claudication Chronic bilateral low back pain with sciatica, sciatica laterality unspecified [facility] Diagnosis Lumbar radiculopathy- Primary Thoracic or lumbosacral neuritis or radiculitis, unspecified [facility] Diagnosis Lumbar spondylosis- Primary Lumbosacral spondylosis without myelopathy Lumbar radiculopathy Thoracic or lumbosacral neuritis or radiculitis, unspecified Spinal stenosis, lumbar region, without neurogenic claudication documented [facility] this [facility]* Diagnosis Low back pain, unspecified back pain laterality, unspecified chronicity, unspecified whether sciatica present- Primary [facility] Diagnosis Lumbar spondylosis- Primary Lumbosacral spondylosis without myelopathy [facility] this [facility]* Diagnosis Lumbar spondylosis- Primary Lumbosacral spondylosis without myelopathy Spinal stenosis, lumbar region, without neurogenic claudication [facility] this [facility]* Diagnosis Lumbar spondylosis- Primary Lumbosacral spondylosis without myelopathy [facility] this [facility]* Diagnosis APPOINTMENT CANCELLED- Primary documented [facility] this [facility]* Diagnosis Spinal stenosis of lumbar region with neurogenic claudication- Primary Spinal stenosis, lumbar region, with neurogenic claudication [facility]* Diagnosis Low back pain, unspecified back pain laterality, unspecified chronicity, unspecified whether sciatica present [facility]* Diagnosis Spinal stenosis of lumbar region with neurogenic claudication- Primary Spinal stenosis, lumbar region, with neurogenic claudication Spinal stenosis of lumbar region with neurogenic claudication Spinal stenosis, lumbar region, with neurogenic claudication [facility]* Diagnosis Pre-op examination- Primary Preoperative examination, [...] with neurogenic claudication [facility] Diagnosis Pre-op examination- Primary Preoperative examination, [...] * Assessment & Plan Note - Harvey Puvris APRN.CNP - 07/10/2024 12:55 PM EST Associated Problem(s): Spinal stenosis of lumbar region with neurogenic claudication Surgery scheduled 07/28/23 * Assessment & Plan Note - Harvey Purvis APRN.CNP - 07/10/2024 12:55 PM EST Associated Problem(s): Pre-op examination Medical conditions which may affect the perioperative course were address in today's visit. documented in this encounter [facility] note* Diagnosis Pre-op examination- Primary Preoperative examination, [...] with neurogenic claudication documented in this encounter [facility] note* Diagnosis Pre-op examination- Primary Preoperative examination, [...] without neurogenic claudication [facility] Diagnosis Pre-op examination- Primary Preoperative examination, [...] Other postprocedural status [facility] Diagnosis Pre-op examination- Primary Preoperative examination, [...] Other postprocedural status [facility] Diagnosis Pre-op examination- Primary Preoperative examination, [...] Other postprocedural status [facility] this [facility]* Diagnosis COPD exacerbation (HCC)- Primary Obstructive [...] SAT EFFORT UNATT Shelton Aguilera MD [address] [place] [address] [place] [address] Referral ID Status Reason Start Date Expiration Date Visits Requested Visits Authorized [id number] Pending Review Auto-Generat ed Referral 11/11/2023 11/10/2024 1 1 * Consult, Test, Treat (Routine) - Authorized Specialty Diagnoses / Procedures Referred By Contac t Referred To Contact Allergy Diagnoses Severe persistent asthma, unspecified whether complicated Procedures CONSULT TO ALLERGY/IMMUNOLOGY OFFICE/OUTPATIENT [facility] 60 MINUTES Shelton Aguilera MD [address] [place] [address] Referral ID Status Reason Start Date Expiration Date Visits Requested Visits Authorized [id number] Authorized PCP Requested Referral 11/11/2023 11/10/2024 1 1 * Outpatient Procedure (Routine) - Authorized Specialty Diagnoses / Procedures [facility] To Contact [facility] Diagnoses Lung nodules Severe persistent asthma, unspecified whether complicated Procedures ECHO ECHO TTHRC R-T 2D W/WOM-MODE COMPL SPEC&COLR D Shelton Aguilera MD [address] [place] [address] [facility] [address] [place] [address] Referral ID Status Reason Start Date Expiration Date Visits Requested Visits Authorized [id number] Authorized Auto-Generat ed Referral 11/11/2023 11/10/2024 1 1 * MRI/CT (Routine) - Authorized Specialty Diagnoses / Procedures [facility] Referred To Contact CT IMAGING Diagnoses Lung nodules Procedures CT CHEST WO IVCON DIAGNOSTIC COMPUTED TOMOGRAPHY THORAX W/O CNTRST Shelton Aguilera MD [address] [place] [address] [place] [address] Referral ID Status Reason Start Date Expiration Date Visits Requested Visits Authorized [id number] Authorized Auto-Generat ed Referral 11/11/2023 12/10/2024 1 1 [facility] for referral (narrative)* Outpatient Procedure (Routine) - Closed Specialty Diagnoses / Procedures [facility] Referred To Contact [facility] Diagnoses Lung nodules Severe persistent asthma, unspecified whether complicated Procedures ECHO ECHO TTHRC R-T 2D W/WOM-MODE COMPL SPEC&COLR D Shelton Aguilera MD [address] [place] [address] [facility] [address] [place] [address] Referral ID Status Reason Start Date Expiration Date V isits Requested Visits Authorized [id number] Closed Auto-Generate d Referral 11/11/2023 11/10/2024 1 1 [facility] for referral (narrative)* Diagnostic Procedure Only (Routine) - Authorized Specialty Diagnoses / Procedures Referred By Contac t Referred To Contact XR IMAGING Diagnoses Low back pain, unspecified back pain laterality, unspecified chronicity, unspecified whether sciatica present Procedures XR LUMBAR MOTION 4V AP/LAT/ FLEX/EXT RADEX SPINE LUMBOSACRAL MINIMUM 4 VIEWS Lois Kee MD [address] [place] [address] [place] [address] Referral ID Status Reason Start Date Expiration Date Visits Requested Visits Authorized [id number] Authorized Auto-Generat ed Referral 04/06/2024 05/06/2025 1 1 * Diagnostic Procedure Only (Routine) - Authorized Specialty Diagnoses / Procedures Referred By Contac t Referred To Contact XR IMAGING Diagnoses Low back pain, unspecified back pain laterality, unspecified chronicity, unspecified whether sciatica present Procedures XR LUMBAR LIMITED 2V AP/LAT RADEX SPINE LUMBOSACRAL 2/3 VIEWS Lois Kee MD [address] [place] [address] [place] [address] Referral ID Status Reason Start Date Expiration Date Visits Requested Visits Authorized [id number] Authorized Auto-Generat ed Referral 04/04/2024 05/04/2025 1 1 [facility] for referral (narrative)* Outpatient Procedure (Routine) - New Request Specialty Diagnoses / Procedures Referred By Contac t Referred To Contact [facility] Diagnoses Spinal stenosis of lumbar region with neurogenic claudication Procedures ECG COMPLETE ECG ROUTINE ECG W/LEAST 12 LDS W/I&R Lois Kee MD [address] [place] [address] [address] Referral ID Status Reason Start Date Expiration Date Visits Requested Visits Authorized [id number] New Request Auto-Generat ed Referral 07/14/2025 1 1 [facility] for referral (narrative)* Diagnostic Procedure Only (Routine) - Pending Review Specialty Diagnoses / Procedures Referred By [facility] Referred To Contact XR IMAGING Diagnoses S/P lumbar laminectomy Procedures XR LUMBAR LIMITED 2V FLEX/EXT RADEX SPINE LUMBOSACRAL 2/3 VIEWS Lois Kee MD [address] [place] [address] [place] [address] Referral ID Status Reason Start Date Expiration Date Visits Requested Visits Authorized [id number] Pending Review Auto-Generat ed Referral 08/10/2024 09/09/2025 1 1 [facility] for visit Narrative* Outpatient Procedure (Routine) - Closed Specialty Diagnoses / Procedures [facility] Referred To Contact [facility] Diagnoses Lung nodules Severe persistent asthma, unspecified whether complicated Procedures ECHO ECHO TTHRC R-T 2D W/WOM-MODE COMPL SPEC&COLR D Shelton Aguilera MD [address] [place] [address] [address] Referral ID Status Reason Start Date Expiration Date V isits Requested Visits Authorized [id number] Closed Auto-Generate d Referral 11/11/2023 11/10/2024 1 1 [facility] for visit Narrative* Diagnostic Procedure Only (Routine) - Closed Specialty Diagnoses / Procedures Referred By Contac t Referred To Contact XR IMAGING Diagnoses Low back pain, unspecified back pain laterality, unspecified chronicity, unspecified whether sciatica present Procedures XR LUMBAR MOTION 4V AP/LAT/ FLEX/EXT RADEX SPINE LUMBOSACRAL MINIMUM 4 VIEWS Lois Kee MD [address] [place] [address] [place] [address] Referral ID Status Reason Start Date Expiration Date V isits Requested Visits Authorized [id number] Closed Auto-Generate d Referral 04/06/2024 05/06/2025 1 1 [facility] for visit Narrative* Auth/Cert (Routine) Specialty Diagnoses / Procedures Referred By Contac t Referred To Contact Case Management Diagnoses Respiratory distress, hypoxia, pneumonia Procedures n/a Aura Wagner MD [address] [place] [address] Phone: tel: fax: [employer] [facility] [address] [place] [address] Phone: tel: Referral ID Status Reason Start Date Expiration Date Visits Re quested Visits Authorized [id number] 3 3 [employer] Summary Purpose Family History No Family History [...] No April 22 9 7:56pm Power of Breading Machine Tender No April 22 019 7:56pm Advance Directive Response Recorded Date/ Time Living Will No March 22 022 11:25am Power of Breading Machine Tender No March 22, 2022 11:25am Latest Code [...] No March 22, 022 10:25am Power of Breading Machine Tender No March 22, 2022 10:25am Date Activated [...] CANAL LUMBAR W/O CONTRAST MATERIAL Bertha Schumacher APRN.PRODUCTION MACHINE SHOP SUPERVISOR [address] [place] [address] [place] [address] Referral ID Status Reason Start Date Expiration Date Visits Requested Visits Authorized [id number] Pending Review Auto-Generat ed Referral 10/29/2023 11/27/2024 1 1 Referral ID Status Reason Start Date Expiration Date V isits Requested Visits Authorized [id number] Closed Auto-Generate d Referral 10/29/2023 11/27/2024 1 1 Specialty Diagnoses / Procedures Referred By Contac t Referred To Contact Neurosurgery Diagnoses Lumbar spondylosis Spinal stenosis, lumbar region, without neurogenic claudication Procedures CONSULT TO NEUROSURGERY OFFICE/OUTPATIENT [facility] MDM 60 MINUTES Prebish, SEAN Cantu.PRODUCTION MACHINE SHOP SUPERVISOR [address] [place] [address] Oziel Edwards I, MD [address] [place] [address] Referral ID Status Reason Start Date Expiration Date Visits Requested Visits Authorized [id number] Authorized PCP Requested Referral 03/30/2024 06/28/2024 1 1 Specialty Diagnoses / Procedures Referred By Contac t Referred To Contact [facility] Diagnoses S/P lumbar laminectomy Procedures CONSULT TO PHYSICAL THERAPY PHYSICAL THERAPY EVALUATION HIGH COMPLEX 45 MINS Lois Kee MD [address] [place] [address] [facility] [address] [place] [address] Referral ID Status Reason Start Date Expiration Date Visits Requested Visits Authorized [id number] Pending Review Auto-Generat ed Referral 08/25/2024 08/25/2025 1 1 Additional Source Comments (unrecognized sect ion and content) No Status Records FoundNo Status Records FoundNo Status Records FoundNo Status Records FoundNo Status Records FoundNo Status Records Found INFORMATION SOURCE (unrecogn ized section and content) DATE CREATED AUTHOR 12/30/2019 [facility] ([place]) DATE CREATED AUTHOR AUTHOR'S ORGANIZ ATION 09/06/2023 [facility] DATE CREATED AUTHOR AUTHOR'S ORGANIZ ATION 10/27/2023 [facility] DATE CREATED AUTHOR AUTHOR'S ORGANIZ ATION 10/30/2024 [facility] DATE CREATED AUTHOR AUTHOR'S ORGANIZ ATION 11/21/2024 [facility] DATE CREATED AUTHOR AUTHOR'S ORGANIZ ATION 02/05/2025 [facility] Goals (unrecognized section and [...] Juarez Dewitt , DO Attending Provider Active Inspector Motor Vehicles Relationship Specialty Start Date End Date Pilar Steele DO [address] [place] [address] PCP - General Family Medicine 06/14/23 Inspector Motor Vehicles Relationship Specialty Start Date End Date Pilar Steele DO [address] [place] [address] PCP - General Family Medicine 06/14/23 Inspector Motor Vehicles Relationship Specialty Start Date End Date Pilar Steele DO [address] [place] [address] PCP - General Family Medicine 06/14/23 Inspector Motor Vehicles Relationship Specialty Start Date End Date Pilar Steele DO [address] [place] [address] PCP - General Family Medicine 06/14/23 Inspector Motor Vehicles Relationship Specialty Start Date End Date Pilar Steele DO [address] [place] [address] PCP - General Family Medicine 06/14/23 Inspector Motor Vehicles Relationship Specialty Start Date End Date Pilar Steele DO [address] [place] [address] PCP - General Family Medicine 06/14/23 Inspector Motor Vehicles Relationship Specialty Start Date End Date Pilar Steele DO [address] [place] [address] PCP - General Family Medicine 06/14/23 Inspector Motor Vehicles Relationship Specialty Start Date End Date Pilar Steele DO [address] [place] [address] PCP - General Family Medicine 06/14/23 Inspector Motor Vehicles Relationship Specialty Start Date End Date Pilar Steele DO [address] [place] [address] PCP - General Family Medicine 06/14/23 Inspector Motor Vehicles Relationship Specialty Start Date End Date Pilar Steele DO [address] [place] [address] PCP - General Family Medicine 06/14/23 Inspector Motor Vehicles Relationship Specialty Start Date End Date Pilar Steele DO [address] [place] [address] PCP - General Family Medicine 06/14/23 Inspector Motor Vehicles Relationship Specialty Start Date End Date Pilar Steele DO [address] [place] [address] PCP - General Family Medicine 06/14/23 Inspector Motor Vehicles Relationship Specialty Start Date End Date Pilar Steele DO [address] [place] [address] PCP - General Family Medicine 06/14/23 Inspector Motor Vehicles Relationship Specialty Start Date End Date Pilar Steele DO [address] [place] [address] PCP - General Family Medicine 06/14/23 Inspector Motor Vehicles Relationship Specialty Start Date End Date Pilar Steele DO [address] [place] [address] PCP - General Family Medicine 06/14/23 Inspector Motor Vehicles Relationship Specialty Start Date End Date Pilar Steele DO [address] [place] [address] PCP - General Family Medicine 06/14/23 Inspector Motor Vehicles Relationship Specialty Start Date End Date Pilar Steele DO [address] [place] [address] PCP - General Family Medicine 06/14/23 Inspector Motor Vehicles Relationship Specialty Start Date End Date Pilar Steele DO [address] [place] [address] PCP - General Family Medicine 06/14/23 Inspector Motor Vehicles Relationship Specialty Start Date End Date Pilar Steele DO [address] [place] [address] PCP - General Family Medicine 06/14/23 Inspector Motor Vehicles Relationship Specialty Start Date End Date Pilar Steele DO [address] [place] [address] PCP - General Family Medicine 06/14/23 Inspector Motor Vehicles Relationship Specialty Start Date End Date Pilar Steele DO [address] [place] [address] PCP - General Family Medicine 06/14/23 Inspector Motor Vehicles Relationship Specialty Start Date End Date Pilar Steele DO [address] [place] [address] PCP - General Family Medicine 06/14/23 Inspector Motor Vehicles Relationship Specialty Start Date End Date Pilar Steele DO [address] [place] [address] PCP - General Family Medicine 06/14/23 Inspector Motor Vehicles Relationship Specialty Start Date End Date Pilar Steele DO [address] [place] [address] PCP - General Family Medicine 06/14/23 Inspector Motor Vehicles Relationship Specialty Start Date End Date Pilar Steele DO [address] [place] [address] (Fax) PCP - General Family Medicine 06/14/23 Inspector Motor Vehicles Relationship Specialty Start Date End Date Pilar Steele DO [address] [place] [address] (Fax) PCP - General Family Medicine 06/14/23 Inspector Motor Vehicles Relationship Specialty Start Date End Date Pilar Steele DO [address] [place] [address] PCP - General Family Medicine 06/14/23 Inspector Motor Vehicles Relationship Specialty Start Date End Date Pilar Steele DO [address] [place] [address] PCP - General Family Medicine 06/14/23 Inspector Motor Vehicles Relationship Specialty Start Date End Date Pilar Steele DO [address] [place] [address] PCP - General Family Medicine 06/14/23 Inspector Motor Vehicles Relationship Specialty Start Date End Date Pilar Steele DO [address] [place] [address] PCP - General Family Medicine 06/14/23 Inspector Motor Vehicles Relationship Specialty Start Date End Date Pilar Steele DO [address] [place] [address] PCP - General Family Medicine 06/14/23 Inspector Motor Vehicles Relationship Specialty Start Date End Date Pilar Steele DO [address] [place] [address] PCP - General Family Medicine 06/14/23 Inspector Motor Vehicles Relationship Specialty Start Date End Date Pilar Steele DO [address] [place] [address] PCP - General Family Medicine 06/14/23 Inspector Motor Vehicles Relationship Specialty Start Date End Date Pilar Steele DO [address] [place] [address] PCP - General Family Medicine 06/14/23 Inspector Motor Vehicles Relationship Specialty Start Date End Date Pilar Steele DO [address] [place] [address] PCP - General Family Medicine 06/14/23 Inspector Motor Vehicles Relationship Specialty Start Date End Date MylaPilar ferrisDO [address] [place] [address] PCP - General Family Medicine 06/14/23 Inspector Motor Vehicles Relationship Specialty Start Date End Date MylaPilar ferrisDO [address] [place] [address] PCP - General Family Medicine 06/14/23 Inspector Motor Vehicles Relationship Specialty Start Date End Date Brooke Wu RN [address] [place] [address] [place] [address] Freight Receiver 10/27/24 Inspector Motor Vehicles Relationship Specialty Start Date End Date Brooke Wu RN [address] [place] [address] [place] [address] Freight Receiver 10/27/24 Inspector Motor Vehicles Relationship Specialty Start Date End Date Brooke Wu RN [address] [facility] [place] [address] Freight Receiver 10/27/24 Inspector Motor Vehicles Relationship Specialty Start Date End Date Brooke Wu RN [address] [place] [address] [place] [address] Freight Receiver 10/27/24 Inspector Motor Vehicles Relationship Specialty Start Date End Date Myla Pilar BerriosDO [address] [place] [address] PCP - General Family Medicine 06/14/23 Inspector Motor Vehicles Relationship Specialty Start Date End Date Veronica Butt APRN-[place] [address] [place] [address] DRILL PRESS SET UP OPERATOR Pulmonary Medicine 01/20/25 Source Comments (unrecognize d section and content) In the event this informatio n is protected by the Federal Confidentiality of Alcohol and Drug Abuse Patient Records regulations: The Federal rules restrict any use of the information to criminally investigate or prosecute any alcohol or drug abuse patient.[facility] CenterIn the event this information is protected by the Federal Confidentiality of Alcohol and Drug Abuse Patient Records regulations: The Federal rules restrict any use of the information to criminally investigate or prosecute any alcohol or drug abuse patient.[facility] CenterIn the event this information is protected by the Federal Confidentiality of Alcohol and Drug Abuse Patient Records regulations: The Federal rules restrict any use of the information to criminally investigate or prosecute any alcohol or drug abuse patient.[facility] CenterIn the event this information is protected by the Federal Confidentiality of Alcohol and Drug Abuse Patient Records regulations: The Federal rules restrict any use of the information to criminally investigate or prosecute any alcohol or drug abuse patient.[facility] CenterIn the event this information is protected by the Federal Confidentiality of Alcohol and Drug Abuse Patient Records regulations: The Federal rules restrict any use of the information to criminally investigate or prosecute any alcohol or drug abuse patient.[facility] CenterIn the event this information is protected by the Federal Confidentiality of Alcohol and Drug Abuse Patient Records regulations: The Federal rules restrict any use of the information to criminally investigate or prosecute any alcohol or drug abuse patient.[facility] CenterIn the event this information is protected by the Federal Confidentiality of Alcohol and Drug Abuse Patient Records regulations: The Federal rules restrict any use of the information to criminally investigate or prosecute any alcohol or drug abuse patient.[facility] CenterIn the event this information is protected by the Federal Confidentiality of Alcohol and Drug Abuse Patient Records regulations: The Federal rules restrict any use of the information to criminally investigate or prosecute any alcohol or drug abuse patient.[facility] CenterIn the event this information is protected by the Federal Confidentiality of Alcohol and Drug Abuse Patient Records regulations: The Federal rules restrict any use of the information to criminally investigate or prosecute any alcohol or drug abuse patient.[facility] CenterIn the event this information is protected by the Federal Confidentiality of Alcohol and Drug Abuse Patient Records regulations: The Federal rules restrict any use of the information to criminally investigate or prosecute any alcohol or drug abuse patient.[facility] CenterIn the event this information is protected by the Federal Confidentiality of Alcohol and Drug Abuse Patient Records regulations: The Federal rules restrict any use of the information to criminally investigate or prosecute any alcohol or drug abuse patient.[facility] CenterIn the event this information is protected by the Federal Confidentiality of Alcohol and Drug Abuse Patient Records regulations: The Federal rules restrict any use of the information to criminally investigate or prosecute any alcohol or drug abuse patient.[facility] CenterIn the event this information is protected by the Federal Confidentiality of Alcohol and Drug Abuse Patient Records regulations: The Federal rules restrict any use of the information to criminally investigate or prosecute any alcohol or drug abuse patient.[facility] CenterIn the event this information is protected by the Federal Confidentiality of Alcohol and Drug Abuse Patient Records regulations: The Federal rules restrict any use of the information to criminally investigate or prosecute any alcohol or drug abuse patient.[facility] CenterIn the event this information is protected by the Federal Confidentiality of Alcohol and Drug Abuse Patient Records regulations: The Federal rules restrict any use of the information to criminally investigate or prosecute any alcohol or drug abuse patient.[facility] CenterIn the event this information is protected by the Federal Confidentiality of Alcohol and Drug Abuse Patient Records regulations: The Federal rules restrict any use of the information to criminally investigate or prosecute any alcohol or drug abuse patient.[facility] CenterIn the event this information is protected by the Federal Confidentiality of Alcohol and Drug Abuse Patient Records regulations: The Federal rules restrict any use of the information to criminally investigate or prosecute any alcohol or drug abuse patient.[facility] CenterIn the event this information is protected by the Federal Confidentiality of Alcohol and Drug Abuse Patient Records regulations: The Federal rules restrict any use of the information to criminally investigate or prosecute any alcohol or drug abuse patient.[facility] CenterIn the event this information is protected by the Federal Confidentiality of Alcohol and Drug Abuse Patient Records regulations: The Federal rules restrict any use of the information to criminally investigate or prosecute any alcohol or drug abuse patient.[facility] CenterIn the event this information is protected by the Federal Confidentiality of Alcohol and Drug Abuse Patient Records regulations: The Federal rules restrict any use of the information to criminally investigate or prosecute any alcohol or drug abuse patient.[facility] CenterIn the event this information is protected by the Federal Confidentiality of Alcohol and Drug Abuse Patient Records regulations: The Federal rules restrict any use of the information to criminally investigate or prosecute any alcohol or drug abuse patient.[facility] CenterIn the event this information is protected by the Federal Confidentiality of Alcohol and Drug Abuse Patient Records regulations: The Federal rules restrict any use of the information to criminally investigate or prosecute any alcohol or drug abuse patient.[facility] CenterIn the event this information is protected by the Federal Confidentiality of Alcohol and Drug Abuse Patient Records regulations: The Federal rules restrict any use of the information to criminally investigate or prosecute any alcohol or drug abuse patient.[facility] CenterIn the event this information is protected by the Federal Confidentiality of Alcohol and Drug Abuse Patient Records regulations: The Federal rules restrict any use of the information to criminally investigate or prosecute any alcohol or drug abuse patient.[facility] CenterIn the event this information is protected by the Federal Confidentiality of Alcohol and Drug Abuse Patient Records regulations: The Federal rules restrict any use of the information to criminally investigate or prosecute any alcohol or drug abuse patient.[facility] CenterIn the event this information is protected by the Federal Confidentiality of Alcohol and Drug Abuse Patient Records regulations: The Federal rules restrict any use of the information to criminally investigate or prosecute any alcohol or drug abuse patient.[facility] CenterIn the event this information is protected by the Federal Confidentiality of Alcohol and Drug Abuse Patient Records regulations: The Federal rules restrict any use of the information to criminally investigate or prosecute any alcohol or drug abuse patient.[facility] CenterIn the event this information is protected by the Federal Confidentiality of Alcohol and Drug Abuse Patient Records regulations: The Federal rules restrict any use of the information to criminally investigate or prosecute any alcohol or drug abuse patient.[facility] CenterIn the event this information is protected by the Federal Confidentiality of Alcohol and Drug Abuse Patient Records regulations: The Federal rules restrict any use of the information to criminally investigate or prosecute any alcohol or drug abuse patient.[facility] CenterIn the event this information is protected by the Federal Confidentiality of Alcohol and Drug Abuse Patient Records regulations: The Federal rules restrict any use of the information to criminally investigate or prosecute any alcohol or drug abuse patient.[facility] CenterIn the event this information is protected by the Federal Confidentiality of Alcohol and Drug Abuse Patient Records regulations: The Federal rules restrict any use of the information to criminally investigate or prosecute any alcohol or drug abuse patient.[facility] CenterIn the event this information is protected by the Federal Confidentiality of Alcohol and Drug Abuse Patient Records regulations: The Federal rules restrict any use of the information to criminally investigate or prosecute any alcohol or drug abuse patient.[facility] CenterIn the event this information is protected by the Federal Confidentiality of Alcohol and Drug Abuse Patient Records regulations: The Federal rules restrict any use of the information to criminally investigate or prosecute any alcohol or drug abuse patient.[facility] CenterIn the event this information is protected by the Federal Confidentiality of Alcohol and Drug Abuse Patient Records regulations: The Federal rules restrict any use of the information to criminally investigate or prosecute any alcohol or drug abuse patient.[facility] CenterIn the event this information is protected by the Federal Confidentiality of Alcohol and Drug Abuse Patient Records regulations: The Federal rules restrict any use of the information to criminally investigate or prosecute any alcohol or drug abuse patient.[facility] CenterIn the event this information is protected by the Federal Confidentiality of Alcohol and Drug Abuse Patient Records regulations: The Federal rules restrict any use of the information to criminally investigate or prosecute any alcohol or drug abuse patient.[facility] CenterIn the event this information is protected by the Federal Confidentiality of Alcohol and Drug Abuse Patient Records regulations: The Federal rules restrict any use of the information to criminally investigate or prosecute any alcohol or drug abuse patient.[facility] CenterIn the event this information is protected by the Federal Confidentiality of Alcohol and Drug Abuse Patient Records regulations: The Federal rules restrict any use of the information to criminally investigate or prosecute any alcohol or drug abuse patient.[facility] CenterIn the event this information is protected by the Federal Confidentiality of Alcohol and Drug Abuse Patient Records regulations: The Federal rules restrict any use of the information to criminally investigate or prosecute any alcohol or drug abuse patient.[facility] CenterIn the event this information is protected by the Federal Confidentiality of Alcohol and Drug Abuse Patient Records regulations: The Federal rules restrict any use of the information to criminally investigate or prosecute any alcohol or drug abuse patient.[facility] CenterIn the event this information is protected by the Federal Confidentiality of Alcohol and Drug Abuse Patient Records regulations: The Federal rules restrict any use of the information to criminally investigate or prosecute any alcohol or drug abuse patient.[facility] CenterIn the event this information is protected by the Federal Confidentiality of Alcohol and Drug Abuse Patient Records regulations: The Federal rules restrict any use of the information to criminally investigate or prosecute any alcohol or drug abuse patient.[facility] CenterIn the event this information is protected by the Federal Confidentiality of Alcohol and Drug Abuse Patient Records regulations: The Federal rules restrict any use of the information to criminally investigate or prosecute any alcohol or drug abuse patient.[facility] CenterIn the event this information is protected by the Federal Confidentiality of Alcohol and Drug Abuse Patient Records regulations: The Federal rules restrict any use of the information to criminally investigate or prosecute any alcohol or drug abuse patient.[facility] CenterIn the event this information is protected by the Federal Confidentiality of Alcohol and Drug Abuse Patient Records regulations: The Federal rules restrict any use of the information to criminally investigate or prosecute any alcohol or drug abuse patient.[facility] CenterIn the event this information is protected by the Federal Confidentiality of Alcohol and Drug Abuse Patient Records regulations: The Federal rules restrict any use of the information to criminally investigate or prosecute any alcohol or drug abuse patient.[facility] CenterIn the event this information is protected by the Federal Confidentiality of Alcohol and Drug Abuse Patient Records regulations: The Federal rules restrict any use of the information to criminally investigate or prosecute any alcohol or drug abuse patient.[facility] CenterIn the event this information is protected by the Federal Confidentiality of Alcohol and Drug Abuse Patient Records regulations: The Federal rules restrict any use of the information to criminally investigate or prosecute any alcohol or drug abuse patient.[facility] CenterIn the event this information is protected by the Federal Confidentiality of Alcohol and Drug Abuse Patient Records regulations: The Federal rules restrict any use of the information to criminally investigate or prosecute any alcohol or drug abuse patient.[facility] CenterIn the event this information is protected by the Federal Confidentiality of Alcohol and Drug Abuse Patient Records regulations: The Federal rules restrict any use of the information to criminally investigate or prosecute any alcohol or drug abuse patient.[facility] CenterIn the event this information is protected by the Federal Confidentiality of Alcohol and Drug Abuse Patient Records regulations: The Federal rules restrict any use of the information to criminally investigate or prosecute any alcohol or drug abuse patient.[facility] CenterIn the event this information is protected by the Federal Confidentiality of Alcohol and Drug Abuse Patient Records regulations: The Federal rules restrict any use of the information to criminally investigate or prosecute any alcohol or drug abuse patient.[facility] CenterIn the event this information is protected by the Federal Confidentiality of Alcohol and Drug Abuse Patient Records regulations: The Federal rules restrict any use of the information to criminally investigate or prosecute any alcohol or drug abuse patient.[facility] CenterIn the event this information is protected by the Federal Confidentiality of Alcohol and Drug Abuse Patient Records regulations: The Federal rules restrict any use of the information to criminally investigate or prosecute any alcohol or drug abuse patient.[facility] CenterIn the event this information is protected by the Federal Confidentiality of Alcohol and Drug Abuse Patient Records regulations: The Federal rules restrict any use of the information to criminally investigate or prosecute any alcohol or drug abuse patient.[facility] CenterIn the event this information is protected by the Federal Confidentiality of Alcohol and Drug Abuse Patient Records regulations: The Federal rules restrict any use of the information to criminally investigate or prosecute any alcohol or drug abuse patient.[facility] CenterIn the event this information is protected by the Federal Confidentiality of Alcohol and Drug Abuse Patient Records regulations: The Federal rules restrict any use of the information to criminally investigate or prosecute any alcohol or drug abuse patient.[facility] CenterIn the event this information is protected by the Federal Confidentiality of Alcohol and Drug Abuse Patient Records regulations: The Federal rules restrict any use of the information to criminally investigate or prosecute any alcohol or drug abuse patient.[facility] CenterIn the event this information is protected by the Federal Confidentiality of Alcohol and Drug Abuse Patient Records regulations: The Federal rules restrict any use of the information to criminally investigate or prosecute any alcohol or drug abuse patient.[facility] CenterIn the event this information is protected by the Federal Confidentiality of Alcohol and Drug Abuse Patient Records regulations: The Federal rules restrict any use of the information to criminally investigate or prosecute any alcohol or drug abuse patient.[facility] CenterIn the event this information is protected by the Federal Confidentiality of Alcohol and Drug Abuse Patient Records regulations: The Federal rules restrict any use of the information to criminally investigate or prosecute any alcohol or drug abuse patient.[facility] CenterIn the event this information is protected by the Federal Confidentiality of Alcohol and Drug Abuse Patient Records regulations: The Federal rules restrict any use of the information to criminally investigate or prosecute any alcohol or drug abuse patient.[facility] CenterIn the event this information is protected by the Federal Confidentiality of Alcohol and Drug Abuse Patient Records regulations: The Federal rules restrict any use of the information to criminally investigate or prosecute any alcohol or drug abuse patient.[facility] CenterIn the event this information is protected by the Federal Confidentiality of Alcohol and Drug Abuse Patient Records regulations: The Federal rules restrict any use of the information to criminally investigate or prosecute any alcohol or drug abuse patient.[facility] CenterIn the event this information is protected by the Federal Confidentiality of Alcohol and Drug Abuse Patient Records regulations: The Federal rules restrict any use of the information to criminally investigate or prosecute any alcohol or drug abuse patient.[facility] CenterIn the event this information is protected by the Federal Confidentiality of Alcohol and Drug Abuse Patient Records regulations: The Federal rules restrict any use of the information to criminally investigate or prosecute any alcohol or drug abuse patient.[facility] CenterIn the event this information is protected by the Federal Confidentiality of Alcohol and Drug Abuse Patient Records regulations: The Federal rules restrict any use of the information to criminally investigate or prosecute any alcohol or drug abuse patient.[facility] CenterIn the event this information is protected by the Federal Confidentiality of Alcohol and Drug Abuse Patient Records regulations: The Federal rules restrict any use of the information to criminally investigate or prosecute any alcohol or drug abuse patient.[facility] CenterIn the event this information is protected by the Federal Confidentiality of Alcohol and Drug Abuse Patient Records regulations: The Federal rules restrict any use of the information to criminally investigate or prosecute any alcohol or drug abuse patient.[facility] CenterIn the event this information is protected by the Federal Confidentiality of Alcohol and Drug Abuse Patient Records regulations: The Federal rules restrict any use of the information to criminally investigate or prosecute any alcohol or drug abuse patient.[facility] CenterIn the event this information is protected by the Federal Confidentiality of Alcohol and Drug Abuse Patient Records regulations: The Federal rules restrict any use of the information to criminally investigate or prosecute any alcohol or drug abuse patient.[facility] CenterIn the event this information is protected by the Federal Confidentiality of Alcohol and Drug Abuse Patient Records regulations: The Federal rules restrict any use of the information to criminally investigate or prosecute any alcohol or drug abuse patient.[facility] CenterIn the event this information is protected by the Federal Confidentiality of Alcohol and Drug Abuse Patient Records regulations: The Federal rules restrict any use of the information to criminally investigate or prosecute any alcohol or drug abuse patient.[facility] CenterIn the event this information is protected by the Federal Confidentiality of Alcohol and Drug Abuse Patient Records regulations: The Federal rules restrict any use of the information to criminally investigate or prosecute any alcohol or drug abuse patient.[facility] CenterIn the event this information is protected by the Federal Confidentiality of Alcohol and Drug Abuse Patient Records regulations: The Federal rules restrict any use of the information to criminally investigate or prosecute any alcohol or drug abuse patient.[facility] Reason for Visit (unrecogniz ed section and content) Reason Comments Spirometry Specialty Diagnoses / Procedures Referred By Contac t Referred To Contact [facility] Diagnoses Dyspnea, unspecified type Procedures SPIROMETRY WITH DILATOR IF OBSTRUCTED BRNCDILAT RSPSE SPMTRY PRE&POST-BRNCDILAT ADMN Shelton Aguilera MD [address] [place] [address] [facility] [address] [place] [address] Referral ID Status Reason Start Date Expiration Date V isits Requested Visits Authorized [id number] Closed Auto-Generate d Referral 08/13/2023 09/11/2024 1 1 Reason Comments FYI-No Action Needed Reason Comments Results Specialty Diagnoses / Procedures Referred By Contac t Referred To Contact [facility] Diagnoses Chronic obstructive pulmonary disease, unspecified COPD type (HCC) Procedures LUNG DIFFUSION CAPACITY (DLCO) DIFFUSING CAPACITY Shelton Aguilera MD [address] [place] [address] [facility] [address] [place] [address] Referral ID Status Reason Start Date Expiration Date V isits Requested Visits Authorized [id number] Closed Auto-Generate d Referral 08/20/2023 09/18/2024 1 1 Specialty Diagnoses / Procedures Referred By Contac t Referred To Contact [facility] Diagnoses Chronic obstructive pulmonary disease, unspecified COPD type (HCC) Procedures LUNG VOLUMES Shelton Aguilera MD [address] [place] [address] [facility] [place] [id number] Referral ID Status Reason Start Date Expiration Date V isits Requested Visits Authorized [id number] Closed Auto-Generate d Referral 08/20/2023 07/18/2024 1 1 Specialty Diagnoses / Procedures Referred By Contac t Referred To Contact [facility] Diagnoses Chronic obstructive pulmonary disease, unspecified COPD type (HCC) Procedures NITRIC OXIDE, EXHALED NITRIC OXIDE GAS DETERMINATION Shelton Aguilera MD [address] [place] [address] [facility] [address] [place], [place] [id number] Referral ID Status Reason Start Date Expiration Date V isits Requested Visits Authorized [id number] Closed Auto-Generate d Referral 08/20/2023 09/18/2024 1 1 Specialty Diagnoses / Procedures Referred By Contac t Referred To Contact CT IMAGING Diagnoses Wheezing Procedures CT CHEST WO IVCON DIAGNOSTIC COMPUTED TOMOGRAPHY THORAX W/O CNTRST Shelton Aguilera MD [address] [place] [address] Ct Imaging [facility] Referral ID Status Reason Start Date Expiration Date V isits Requested Visits Authorized [id number] Closed Auto-Generate d Referral 08/20/2023 10/03/2023 1 [...] LMBR/SAC 2ND LEVEL PROCEDURE 20 , Bertha, [employer]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 [address] [place] [address] Dhiraj Herr MD [address] [address] Referral ID Status Reason Start Date Expiration Date Visits Re quested Visits Authorized [id number] Closed 07/19/2023 07/18/2024 1 1 Reason Comments Follow Up Reason Comments Wheezing Reason Comments Radiology MRI Specialty Diagnoses / Procedures Referred By Contac t Referred To Contact MR IMAGING Diagnoses Spinal 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 Procedures MRI LUMBAR SPINE WO IVCON MRI SPINAL CANAL LUMBAR W/O CONTRAST MATERIAL kirstinSteffaniea, [employer]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 [address] [place] [address] [place] [address] Referral ID Status Reason Start Date Expiration Date V isits Requested Visits Authorized [id number] Closed Auto-Generate d Referral 10/29/2023 11/27/2024 1 [...] LMBR/SAC 2ND LEVEL PROCEDURE 20 , 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, [employer]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 [address] [place] [address] Dhiraj Herr MD [address] [facility] [address] [place] [address] Referral ID Status Reason Start Date Expiration Date Visits Re quested Visits Authorized [id number] Closed 12/16/2023 07/18/2024 1 1 Reason Comments Procedure Follow Up MBB Reason Comments Follow Up MBB Specialty Diagnoses / Procedures Referred By Contac t Referred To Contact CT IMAGING Diagnoses Lung nodules Procedures CT CHEST WO IVCON DIAGNOSTIC COMPUTED TOMOGRAPHY THORAX W/O CNTRST Shelton Aguilera MD [address] [place] [address] [place] [address] Referral ID Status Reason Start Date Expiration Date V isits Requested Visits Authorized [id number] Closed Auto-Generate d Referral 11/11/2023 12/10/2024 1 1 Reason Onset Date Comments Refill Request 01/06/2024 Reason Onset Date Comments Refill Request 01/11/2024 Reason Comments Illness [place] R N covering urgent pulm sypmtom calls [...] GDN PROCEDURE Everton Decker MD [address] [place] [address] Everton Decker MD [address] [place] [address] Referral ID Status Reason Start Date Expiration Date Visits Requested Visits Authorized [id number] Appeal Pending Clearance Not Met - Admin/Chair [...] LMBR/SAC 2ND LEVEL PROCEDURE 20 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, Bertha, [employer]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 [address] [place] [address] Everton Decker MD [address] [facility] [address] [facility] [address] [place] [address] Referral ID Status Reason Start Date Expiration Date Visits Re quested Visits Authorized [id number] Closed 04/26/2024 10/23/2024 1 1 Reason Comments Follow Up post procedure Reason Comments Erroneous encounter-disregard Reason Comments Injections MBB Back Pain LOWER BILATERAL Specialty Diagnoses / Procedures Referred By Christinaac t Referred To Contact PAIN MANAGEMENT Diagnoses Spondylosis without myelopathy or radiculopathy, lumbar region Procedures DSTR NROLYTC AGNT PARVERTEB FCT SNGL LMBR/SACRAL DSTR NROLYTC AGNT [place] FCT ADDL LMBR/SACRAL PreBertha phan, [employer]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 [address] [facility] [address] [facility] [address] [place] [address] Spine [facility] [place] [address] [facility] [address] [facility] [address] [place] [address] Referral ID Status Reason Start Date Expiration Date Visits Re quested Visits Authorized [id number] Closed 05/08/2024 11/04/2024 1 1 Reason Comments Appointment Cancelled Reason Comments Established Patient Reason Comments Radiology CT Specialty Diagnoses / Procedures Referred By Contac t Referred To Contact Radiology / RADIO CT SCAN [facility] Diagnoses Other nonspecific abnormal finding of lung field CT chest w/o in scanned docs Procedures DIAGNOSTIC COMPUTED TOMOGRAPHY THORAX W/O CNTRST CT WO [address] Pilar Steele DO [address] [place] [address] [facility] [address] [place] [address] Referral ID Status Reason Start Date Expiration Date Visits Re quested Visits Authorized [id number] Closed 07/19/2023 07/18/2024 1 1 Reason Comments [...] COMPLEX 45 MINS Lois Kee MD [address] [facility] [place] [address] Phone: tel: fax: [facility] [address] [place] [address] Referral ID Status Reason Start Date Expiration Date V isits Requested Visits Authorized [id number] Closed Auto-Generate d Referral 07/19/2024 07/18/2025 1 [...] Diagnoses Unspecified visual disturbance Procedures NA [facility] [facility] [address] [place] [phone] Phone: tel: [facility] [employer] [facility] [address] [place] [phone] Phone: tel: Referral ID Status Reason Start Date Expiration Date Visits Re quested Visits Authorized [id number] 3 3 Reason Onset Date Comments APPOINTMENT SCHEDULING 12/25/2024 Reason Comments New patient, to establish relationship Specialty Diagnoses / Procedures Referred By Contac t Referred To Contact Pulmonary Medicine Diagnoses COPD exacerbation (HCC) Aura Wagner MD [address] [place] [address] Phone: tel: fax: [facility] [address] [place] [address] Phone: tel: Referral ID Status Reason Start Date Expiration Date V isits Requested Visits Authorized [id number] Pending Review 10/26/2024 10/26/2025 3 3 Reason [...] Provider: Bertram Patel RT - Reason: 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 [employer] [facility]. provides no warranty or guarantee of the accuracy or completeness of information in this document.
[2025-02-27] MEDS: Vancomycin HCl 1,750 MG in 0.9% Normal Saline (500mL Bag) 500 ML 250 MG IV ×2 (00:42→12:09)
[2025-02-27] MEDS: 0.9% Normal Saline (1000mL) 1,000 ML 999 ML IV (00:56)
[2025-02-27 01:02] LABS: Barbiturate Urine NEGATIVE (< 200 ng/mL); Benzodiazepine Urine NEGATIVE (< 200 ng/mL); PCP Urine NEGATIVE (< 25 ng/mL); THC Urine NEGATIVE (< 50 ng/mL)
[2025-02-27 01:08] LABS: Alcohol, Blood (Medical)-Serum < 10.1 mg/dL (<=10.0)
--- OUTSIDE RECORDS SUMMARY | 2025-02-27 01:24 | XMS RPT_ITS | CCD ---
Author Organization [facility] Care Team Providers Care Casino Dealer Name Role Phone Unavailable Primary Care Provider UnavailPilar Nayak DO Primary Care Provider PROVIDER, UNKNOWN Referring Unavailable PILAR STELEE F Primary Care Unavailable Myla COYLE Pilar F Primary Care Provider [phone] Myla Pilar Primary Care Unavailable Pilar Steele Attending Unavailable Myla Pilar Referring Unavailable Juarez Dewitt Attending Unavailable Myla Pilar Primary Care Unavailable Myla Pilar Primary Care Unavailable Pilar Steele Attending Unavailable Myla Pilar Referring Unavailable Myla COYLE Pilar F Primary Care Provider [phone] Unavailable Primary Care Provider Unavailoseas Wu RN, [...] Referring Unavailable LOIS KEE Attending Unavailable MYLA, IPLAR F Primary Care Unavailable MYLA, PILAR F Primary Care Unavailable SHELTON AGUILERA Referring Unavail able MYLA, PILAR F Primary Care Unavailable SHELTON AGUILERA Referring Unavail able MYLA, PILAR F Primary Care Unavailable BRIGEMAN, LOIS Referring Unavailable MYLA, PLIAR F Primary Care Unavailable [...] LOIS KEE Referring Unavailable Veronica Murillo Unavailable [phone] NON-EPICCARE, PROVIDER Primary Care Unavailab le [...] (5 sources) Penicillins Drug Allergy 5 Unknown [facility] (20 sources) Penicillins; Translations: [PENICILLINS] Propensity to adverse reactions to drug 5 Unknown, Other: See Comments [facility] (16 sources) Roflumilast; Translations: [ROFLUMILAST] Drug Allergy 4 Rash [facility] Work Phone: (10 sources) Roflumilast Drug Allergy 4 Rash [facility] Medications Current Medications Medication Drug Class(es) Dates Sig (Normalized) Sig (Original) acetaminophen 325 mg / HYDROcodone bitartrate 5 mg oral tablet (4 sources) Opioid Agonist Start: 03-22-2022 take 1 tablet by mouth every six hours as needed Hydrocodone-Aceta minophen Active 1 TABLET PO EVERY 6 HOURS NEEDED 12 March 22, 2022 [id number] 200 actuat albuterol 0.09 mg/actuat metered dose [...] Start: 08-27-2014 take 2 tablets by [facility] once daily predniSONE (DELTASONE) 20 mg tablet Indications: Acute bronchitis Take 2 tablet by mouth daily for 5 days. 10 tablet 0 08/27/2014 Active Comment on above: Take 2 tablet by [facility] daily for 5 days. Take 1 tablet by [facility] as directed. TID for 4 days then [...] for 23 days. Take 1 tablet by [facility] two times a day. Patient should start [...] at 0830, Until Discontinued polyethylene glycol 3350 61518 mg powder for oral solution (7 sources) Osmotic Laxative Start: 17 g, Oral, DAILY, First dose on Wed10/24/24 at 2030, Until Discontinued Start: 07-29-2024 polyethylene g lycol 3350 17 gram packet Take 1 Packet by mouth once daily as needed. Dissolve dose in 4 - 8 ounces of liquid and take as directed. 07/29/2024 Active sennosides, halfway 8.6 mg oral tablet (1 source) Start: [...] Interpretation Reference Range Facility Telephone Encounteron 2024 Furnace Utility Operator Authentication Interface Message Text Lm on vcml to scheduled PFT Normal [facility] Furnace Utility Operator Authentication Interface Message Text Please contact to reschedule PFT appt. Normal [facility] CBC WITH DIFFERENTIALon 12-18 Basophils (Bld) [#/Vol] 0.10 10*3/uL Normal 0.00-0.20 [facility] Comment on above: Performed By: #### C BCDSAT ####[facility] [id number] [place], [place], Basophils/100 WBC (Bld) 1.3 % Normal <=1.9 [facility] Comment on above: Performed By: #### C VIKIDSAT ####[facility] [id number] [place] [address], Eosinophils (Bld) [#/Vol] 0.07 10*3/uL Normal 0.00-0.70 [facility] Comment on above: Performed By: #### C BCDSAT ####[facility] [id number] [place] [address], Eosinophils/100 WBC (Bld) 1.0 % Normal 0.1-4.0 [facility] Comment on above: Performed By: #### C VIKIDSAT ####[facility] [id number] [place] [address], Erythrocyte distribution width (RBC) [Ratio] 13.9 % Normal 11.5-14.5 [facility] Comment on above: Performed By: #### C BCDSAT ####[facility] [id number] [place], [place], Hematocrit (Bld) [Volume fraction] 41.4 % Normal 41.0-53.0 [facility] Comment on above: Performed By: #### C BCDSAT ####[facility] [id number] [place] [address], Hemoglobin (Bld) [Mass/Vol] 14.5 g/dL Normal 13.9-16.3 [facility] Comment on above: Performed By: #### C BCDSAT ####[facility] [id number] [place] [address], Lymphocytes (Bld) [#/Vol] 2.04 10*3/uL Normal 1.00-4.80 [facility] Comment on above: Performed By: #### C BCDSAT ####[facility] [id number] [place], [place], Lymphocytes/100 WBC (Bld) 26.5 % Normal 24.0-44.0 [facility] Comment on above: Performed By: #### C BCDSAT ####[facility] [id number] [place], [place], MCH (RBC) [Entitic mass] 30.3 pg Normal 26.0-34.0 [facility] Comment on above: Performed By: #### C BCDSAT ####[facility] [id number] [place], [place], MCHC (RBC) [Mass/Vol] 35.1 g/dL Normal 32.0-35.9 [facility] Comment on above: Performed By: #### C BCDSAT ####[facility] [id number] [place], [place], MCV (RBC) [Entitic vol] 87 fL Normal 80-100 [facility] Comment on above: Performed By: #### C BCDSAT ####[facility] [id number] [place], [place], Monocytes (Bld) [#/Vol] 0.73 10*3/uL Normal 0.20-1.00 [facility] Comment on above: Performed By: #### C BCDSAT ####[facility] [id number] [place], Monocytes/100 WBC (Bld) 9.5 % Normal 2.0-11.0 [facility] Comment on above: Performed By: #### C BCDSAT ####[facility] [id number] [place], [place], Neutrophils (Bld) [#/Vol] 4.73 10*3/uL Normal 1.50-8.00 [facility] Comment on above: Performed By: #### C BCDSAT ####[facility] [id number] [place], [place], Neutrophils/100 WBC (Bld) 61.7 % Normal 31.0-76.0 [facility] Comment on above: Performed By: #### Cosmo JOSEPHAT ####[facility] [id number] [place], [place], Platelet mean volume (Bld) [Entitic vol] 7.0 fL Low 7.5-11.2 [facility] Comment on above: Performed By: #### Cosmo JOSEPHAT ####[facility] [id number] [place], [place], Platelets (Bld) [#/Vol] 323 10*3/uL Normal 150-400 [facility] Comment on above: Performed By: #### Cosmo JOSEPHAT ####[facility] [id number] [place], RBC (Bld) [#/Vol] 4.79 10*6/uL Normal 4.50-5.90 [facility] Comment on above: Performed By: #### Cosmo JOSEPHAT ####[facility] [id number] [place] [address], WBC (Bld) [#/Vol] 7.7 10*3/uL Normal 4.5-11.5 [facility] Comment on above: Performed By: #### Cosmo JOSEPHAT ####[facility] [id number] [place], [place], IMMUNOGLOBULIN Janusz IGE 156.3 IU/mL Normal <158.0 [facility] Comment on above: Performed By: #### I GE #### [facility] [address] [place] [address], INHALANT ALLERGEN PANELon A. alternata IgE Qn (S) 0.25 kU/L [facility] A. alternata IgE RAST class (S) 0 Class [facility] A. fumigatus IgE Qn (S) kU/L kU/L [facility] A. fumigatus IgE RAST class (S) 0 Class [facility] Kittitian house dust mite IgE Qn (S) kU/L kU/L [facility] Kittitian house dust mite IgE RAST class (S) 0 Class [facility] Boxelder IgE Qn (S) kU/L kU/L [facility] Boxelder IgE RAST class (S) 0 Class [facility] Cat dander IgE Qn (S) kU/L kU/L [facility] Cat dander IgE RAST class (S) 0 Class [facility] Cockroach IgE Qn (S) 0.14 kU/L [facility] Cockroach IgE RAST class (S) 0 Class [facility] Common Ragweed 0 Class [facility] Common Ragweed IgE Qn (S) kU/L kU/L [facility] Common Ragweed IgE RAST class (S) kU/L kU/L [facility] Dog dander IgE Qn (S) kU/L kU/L [facility] Dog dander IgE RAST class (S) 0 Class [facility] Setomelanomma rostrata IgE Qn (S) kU/L kU/L [facility] Setomelanomma rostrata IgE RAST class (S) 0 Class [facility] Raul Grass 0 Class [facility] Raul IgE Qn (S) kU/L kU/L [facility] [place] IgE RAST class (S) 0 Class [facility] IgE (kU/L) Interp.: <0.35 Class 0 Below Detect. 0.35 - 0.69 Class 1 Low 0.70 - 3.49 Class 2 Moderate 3.50 - 17.49 Class 3 High 17.50- 52.49 Class 4 Very High 52.50- 99.99 Class 5 Very High >=100 Class 6 Very High [facility] ALTERNARIA ALTERNATA 0.25 kU/L Normal [facility] Comment on above: Order Comment: [place] ignacio troponin can result from acute myocardial [...] #### H STRP #### [facility] [address] [place] [address], [phone] ALTERNARIA ALTERNATA CLASS 0 Class Normal [facility] Comment on above: Order Comment: [place] ignacio troponin can result from acute myocardial [...] #### H STRP #### [facility] [address] [place] [address], [phone] ASPERGILLUS FUMIGATUS < 0.10 Normal [facility] Comment on above: Order Comment: [place] ignacio troponin can result from acute myocardial [...] H STRP #### [facility] [address] [place], [address] ASPERGILLUS FUMIGATUS CLASS 0 Class Normal [facility] Comment on above: Order Comment: [place] ignacio troponin can result from acute myocardial [...] #### H STRP #### [facility] [address] [place] [address], [phone] BOX ELDER < 0.10 Normal [facility] Comment on above: Order Comment: [place] ignacio troponin can result from acute myocardial [...] #### H STRP #### S PATHOLOGY LABORATORY [address] [place] [address], [phone] BOX ELDER CLASS 0 Class Normal [facility] Comment on above: Order Comment: [place] ignacio troponin can result from acute myocardial [...] H STRP #### [facility] [address] [place], [address] CAT DANDER < 0.10 Normal [facility] Comment on above: Order Comment: [place] ignacio troponin can result from acute myocardial [...] #### H STRP #### [facility] [address] [place] [address], [phone] CAT DANDER CLASS 0 Class Normal [facility] Comment on above: Order Comment: [place] ignacio troponin can result from acute myocardial [...] #### H STRP #### [facility] [address] [place] [address], [phone] COCKROACH 0.14 kU/L Normal [facility] Comment on above: Order Comment: [place] ignacio troponin can result from acute myocardial [...] #### H STRP #### [facility] [address] [place] [address], [phone] COCKROACH CLASS 0 Class Normal [facility] Comment on above: Order Comment: [place] ignacio troponin can result from acute myocardial [...] #### H STRP #### [facility] [address] [place] [address], [phone] COMMON RAGWEED < 0.10 Normal [facility] Comment on above: Order Comment: [place] ignacio troponin can result from acute myocardial [...] #### H STRP #### [facility] [address] [place] [address], [phone] COMMON RAGWEED CLASS 0 Class Normal [facility] Comment on above: Order Comment: [place] ignacio troponin can result from acute myocardial [...] H STRP #### S PATHOLOGY LABORATORY [address] [place], [place], D. FARINAE (DUST MITE) CLASS 0 Class Normal [facility] Comment on above: Order Comment: [place] ignacio troponin can result from acute myocardial [...] H STRP #### S PATHOLOGY LABORATORY [address] [place], [place], D. FARINAE (HOUSE DUST MITE) < 0.10 Normal [facility] Comment on above: Order Comment: [place] ignacio troponin can result from acute myocardial [...] #### H STRP #### [facility] [address] [place] [address], [phone] DOG DANDER < 0.10 Normal [facility] Comment on above: Order Comment: [place] ignacio troponin can result from acute myocardial [...] #### H STRP #### [facility] [address] [place] [address], [phone] DOG DANDER CLASS 0 Class Normal [facility] Comment on above: Order Comment: [place] ignacio troponin can result from acute myocardial [...] #### H STRP #### [facility] [address] [place] [address], [phone] HELMINTHOSPORIUM HALODES < 0.10 Normal [facility] Comment on above: Order Comment: [place] ignacio troponin can result from acute myocardial [...] #### H STRP #### [facility] [address] [place] [address], [address] HELMINTHOSPORIUM HALODES CLASS 0 Class Normal [facility] Comment on above: Order Comment: [place] ignacio troponin can result from acute myocardial [...] H STRP #### [facility] [address] [place], [phone] OAK < 0.10 Normal [facility] Comment on above: Order Comment: [place] ignacio troponin can result from acute myocardial [...] #### H STRP #### S PATHOLOGY LABORATORY [address] [place] [address], OAK CLASS 0 Class Normal [facility] Comment on above: Order Comment: [place] ignacio troponin can result from acute myocardial [...] H STRP #### [facility] [address] [place], RAUL GRASS < 0.10 Normal The [facility] Comment on above: Order Comment: [place] ignacio troponin can result from acute myocardial [...] #### H STRP #### [facility] [address] [place] [address], [phone] RAUL JARRELL CLASS 0 Class Normal [facility] Comment on above: Order Comment: [place] ignacio troponin can result from acute myocardial [...] #### H STRP #### [facility] [address] [place] [address], [phone] Laboratory - Hematology and Cell countson 01-08-2025 Basophils (Bld) [#/Vol] 0.1 10*3/uL 0.00 - 0.20 K/uL [facility] Basophils/100 WBC (Bld) 1.3 % NINF - 1.9 % [facility] Eosinophils (Bld) [#/Vol] 0.07 10*3/uL 0.00 - 0.70 K/uL [facility] Eosinophils/100 WBC (Bld) 1 % 0.1 - 4.0 % [facility] Erythrocyte distribution width (RBC) [Ratio] 13.9 % [...] 7 fL Low 7.5 - 11.2 fL [facility] Platelets (Bld) [#/Vol] 323 10*3/uL 150 - 400 K/uL [facility] RBC (Bld) [#/Vol] 4.79 10*6/uL [facility] WBC (Bld) [#/Vol] 7.7 10*3/uL 4.5 - 11.5 K/uL [facility] Laboratory - Serology - non- microon 01-08-2025 Immune complex IgE Qn 156.[address] [facility] No Panel Informationon 01-08 Interpretation and review of laboratory results Normal [facility] Interpretation and review of laboratory results Abnormal [facility] Progress Noteson 01-08-2025 Furnace Utility Operator Authentication Interface Message Text Division of Pulmonary, [...] this hospital course he was seen by [facility] pulmonary in October and then by a private practice vehicle monitor technician in [place] (no OV notes available) Per patient and [...] -- -- 0.07 <0.03 Modified Medical [facility] [place] (mMRC) dyspnea scale Grade Description of breathlessness [...] + PRN 2L with exertion Occupation/Exposures: Occupation: [employer] Born/raised: [place] Pets: 1 dog Triggers: highlighted if positive [...] - Connective tissue disorders; SLE, Sjogren's, RA, Anatone's - Iritable bowel disease - Malignancy or [...] (CVX=15) 05/26/2017 Influenza, injectable, quadrivalent, preservative free (CDF=931) 06/04/2017, 04/24/2019 Influenza, injectable, trivalent, preservative free (HNO=872) 06/05/2015, 05/26/2017 Pneumococcal conjugate 13 valent (PCV13) (NEG=827) 06/08/2015, 05/26/2017 Pneumococcal polysaccharide 23 Valent (PPSV23) (CVX=33) 06/04/2017 Tdap (RCY=679) 06/14/2023 Pended (more content not included)... Normal [facility] Furnace Utility Operator Authentication Interface Message Text Patient was identified by name and date of . Barak Cerrato MA .Patient at risk for falls:No Falls Risk protocol implemented: N/A Normal [facility] Telephone Encounteron 2024 Furnace Utility Operator Authentication Interface Message Text Neurology Clinical Roadability Machine Operator Note Attempted to call patient. LVM to return call to this RN to schedule a neurology appt for JIN with Dr Flannery. Letter sent SUSY Flood, RN, [facility] STREETRN Clinical Roadability Machine Operator, Neurology Normal [facility] Consultson 12-07-2024 Furnace Utility Operator Authentication Interface Message Text NEUROLOGY INITIAL CONSULT [...] showing no acute abnormalities but with R GANG BORE OPERATOR irregularity that was recanalized since 2019 CTA [...] medial rectus muscle. Recanalization of the right GANG BORE OPERATOR with irregularity of the vessel. No significant stenosis, dissection, or aneurysm in the intracranial or extracranial circulation. 04/2019 CTA head and neck: IMPRESSION: 1. 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 No evidence of acute infarct or hemorrhage. 2. Mild atherosclerotic disease of the cervical and intracranial ICAs without significant stenosis or occlusion. 3. Multifocal tree-in-bud opacities within the lung apices, likely smoking-rel (more content not included)... Normal [facility] ED Provider Noteson 12-08-19 Furnace Utility Operator Authentication Interface Message Text MH for BM [...] unspecified headache type [R51.9, G89.29] Normal [facility] Furnace Utility Operator Authentication Interface Message Text --------- HISTORY OF [...] Notes: Reviewed and utilized the nursing notes. Dispute Resolution Analyst: not needed - patient preferred language is Malawian. External Medical Records: The patient's available past medical records and past encounters were reviewed. 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 No concern for carotid artery disease or GCA Pt was recommended staying in the CDU for neuro consult Pt left AMA before placement in CDU CTA Head/Neck No acute intracranial abnormality Enlargement of the left medial rectus muscle. Recanalization of the right GANG BORE OPERATOR with irregularity of the vessel. No significant [...] and (more content not included)... Normal [facility] BASIC METABOLIC PANELon 05- Anion gap [Moles/Vol] 11 mmol/L Normal 10-20 [facility] Comment on above: Performed By: #### H STRP #### S PATHOLOGY LABORATORY [address] [place] [address], Calcium [Mass/Vol] 9.4 mg/dL Normal 8.6-10.3 [facility] Comment on above: Performed By: #### H STRP #### S PATHOLOGY LABORATORY [address] [place] [address], Chloride [Moles/Vol] 99 mmol/L Normal 98-107 [facility] Comment on above: Performed By: #### H STRP #### S PATHOLOGY LABORATORY [address] [place] [address], CO2 [Moles/Vol] 29 mmol/L Normal 21-31 [facility] Comment on above: Performed By: #### H STRP #### [facility] [address] [place] [address], Creatinine [Mass/Vol] 0.89 mg/dL Normal 0.70-1.30 [facility] Comment on above: Performed By: #### H STRP #### [facility] [address] [place] [address], ESTIMATED GFR (CKD-EPI) 95 mL/min/1.73sqm Normal >=60 [facility] Comment on above: Result Comment: 2020 [...] Inclusion of Race in Diagnosing Kidney Disease. Kitt[place] Journal of Kidney Diseases 2021;79(2):268-88.e1. 2. N Engl J Med 2020 Vol. 385 Issue 19 Pages 7717-1686 Performed By: #### H STRP #### [facility] [address] [place], [place], Glucose [Mass/Vol] 90 mg/dL Normal 74-109 [facility] Comment on above: Performed By: #### H STRP #### [facility] [address] [place], [place], Potassium [Moles/Vol] 5.0 mmol/L Normal 3.5-5.0 [facility] Comment on above: Result Comment: Hemo lysis present Performed By: #### H STRP #### [facility] [address] [place] [address], Sodium [Moles/Vol] 134 mmol/L Low 136-145 [facility] Comment on above: Performed By: #### H STRP #### [facility] [address] [place], [place], Urea nitrogen [Mass/Vol] 11 mg/dL Normal 7-25 [facility] Comment on above: Performed By: #### H STRP #### [facility] [address] [place], [place], Basic metabolic 2000 panelon 12-02-2024 Anion gap [Moles/Vol] 11 mmol/L 10 - 20 [facility] Calcium [Mass/Vol] 9.4 mg/dL 8.6 - [...] Inclusion of Race in Diagnosing Kidney Disease. [place] Journal of Kidney Diseases 2021;79(2):268-88.e1. 2. N Engl J Med 2020 Vol. 385 Issue 19 Pages 3219-0039 Glucose [Mass/Vol] 90 mg/dL 74 - 109 mg/dL [facility] Interpretation and review of laboratory results Abnormal [facility] Potassium [Moles/Vol] 5 mmol/L 3.5 - 5.0 mmol/L [facility] Comment on above: Hemolysis present Sodium [Moles/Vol] 134 mmol/L Low 136 - 145 mmol/L [facility] Urea nitrogen [Mass/Vol] 11 mg/dL 7 - 25 mg/dL [facility] C-REACTIVE PROTEINon 12-02- 025 CRP [Mass/Vol] mg/dL NINF - 0.5 mg/dL [facility] Interpretation and review of laboratory results Normal [facility] CRP [Mass/Vol] mg/L Normal <0.5 [facility] Comment on above: Performed By: #### H STRP #### [facility] [address] [place] [address], [phone] CBC WITH DIFFERENTIALon 11-16 Basophils (Bld) [#/Vol] [...] (Bld) [#/Vol] 0.08 10*3/uL Normal 0.00-0.20 [facility] Comment on above: Performed By: #### I GE #### S PATHOLOGY LABORATORY [address] [place] [address], [id number] Basophils/100 WBC (Bld) 1.0 % Normal <=1.9 [facility] Comment on above: Performed By: #### I GE #### S PATHOLOGY LABORATORY [address] [place], [place], Eosinophils (Bld) [#/Vol] 0.13 10*3/uL Normal 0.00-0.70 [facility] Comment on above: Performed By: #### I GE #### S PATHOLOGY LABORATORY [address] [place], [place], Eosinophils/100 WBC (Bld) 1.6 % Normal 0.1-4.0 [facility] Comment on above: Performed By: #### I GE #### [facility] PATH[facility] LABORAT[facility] [address] [place], [place], Erythrocyte distribution width (RBC) [Ratio] 15.8 % High 11.5-14.5 [facility] Comment on above: Performed By: #### I GE #### [facility] PATHOLOGY LABORAT[facility] [address] [place], [place], Hematocrit (Bld) [Volume fraction] 38.6 % Low 41.0-53.0 [facility] Comment on above: Performed By: #### I GE #### [facility] PATHOLOGY LABORATORY [address] [place], [place], Hemoglobin (Bld) [Mass/Vol] 13.7 g/dL Low 13.9-16.3 [facility] Comment on above: Performed By: #### I GE #### [facility] PATHOLOGY LABORAT[facility] [address] [place], [place], Lymphocytes (Bld) [#/Vol] 2.20 10*3/uL Normal 1.00-4.80 [facility] Comment on above: Performed By: #### I GE #### [facility] PATH[facility]ORAT[facility] [address] [place], [place], Lymphocytes/100 WBC (Bld) 27.4 % Normal 24.0-44.0 [facility] Comment on above: Performed By: #### I GE #### S PATHOLOGY LABORATORY [address] [place], [place], MCH (RBC) [Entitic mass] 30.7 pg Normal 26.0-34.0 [facility] Comment on above: Performed By: #### I GE #### [facility] PATHOLOGY LABORATORY [address] [place] [address], MCHC (RBC) [Mass/Vol] 35.5 g/dL Normal 32.0-35.9 [facility] Comment on above: Performed By: #### I GE #### [facility] PATHOLOGY LABORATORY [address] [place] [address], MCV (RBC) [Entitic vol] 86 fL Normal 80-100 [facility] Comment on above: Performed By: #### I GE #### [facility] PATHOLOG[facility] LABORATORY [address] [place] [address], MONOCYTE DISTRIBUTION WIDTH 16 Normal <=20 [facility] Comment on above: Performed By: #### I GE #### [facility] PATHOLOG[facility] [address] [place] [address], Monocytes (Bld) [#/Vol] 1.00 10*3/uL Normal 0.20-1.00 [facility] Comment on above: Performed By: #### I GE #### [facility] PATH[facility]AT[facility] [address] [place] [address], Monocytes/100 WBC (Bld) 12.4 % High 2.0-11.0 [facility] Comment on above: Performed By: #### I GE #### [facility] PATH[facility]AT[facility] [address] [place] [address], Neutrophils (Bld) [#/Vol] 4.64 10*3/uL Normal 1.50-8.00 [facility] Comment on above: Performed By: #### I GE #### [facility] PATH[facility] [address] [place] [address], Neutrophils/100 WBC (Bld) 57.7 % Normal 31.0-76.0 [facility] Comment on above: Performed By: #### I GE #### [facility] PATH[facility] [address] [place] [address], Platelet mean volume (Bld) [Entitic vol] 7.5 fL Normal 7.5-11.2 [facility] Comment on above: Performed By: #### I GE #### [facility] PATH[facility]ORAT[facility] [address] [place] [address], Platelets (Bld) [#/Vol] 259 10*3/uL Normal 150-400 [facility] Comment on above: Performed By: #### I GE #### S PATHOLOGY LABORATORY [address] [place], [place], RBC (Bld) [#/Vol] 4.47 10*6/uL Low 4.50-5.90 [facility] Comment on above: Performed By: #### I GE #### [facility] [address] [place], [place], WBC (Bld) [#/Vol] 8.0 10*3/uL Normal 4.5-11.5 [facility] Comment on above: Performed By: #### I GE #### S PATHOLOGY LABORATORY [address] [place] [address], CTA HEAD/NECK W/on CTA HEAD/NECK W/ EXAMINATION: [...] Circulation: Recanalization of the previously occluded right GANG BORE OPERATOR with irregularity of the vessel. Intracranial vertebral arteries, PICA/AICA branches, basilar artery, SCAs and eddy current inspector are patent. No vessel cutoff, aneurysm or focal hemodynamically significant stenosis. Other: No evidence of a soft tissue mass or lymphadenopathy in the neck or superior mediastinum. The lung apices are clear. IMPRESSION: No acute intracranial abnormality. Enlargement of the left medial rectus muscle. Recanalization of the right GANG BORE OPERATOR with irregularity of the vessel. No significant stenosis, dissection, or aneurysm in the intracranial or extracranial circulation. MACRO: None Normal [facility] CTA Head vessels and Neck ve ssels WO and W contrast IVOrdered By: Ming Torres on 12-02-2024 CT DLP 3838.3 (mGy.cm) [facility] Work Phone: CT Series Head,Head,Head,Head [facility] Work Phone: CTDI VOL 67.5 (mGy),9.6 (mGy),43.5 (mGy),59.2 (mGy) [facility] Work Phone: PHANTOM TYPE IEC Head Dosimetry Phantom,IEC Head Dosimetry Phantom,IEC Head Dosimetry Phantom,IEC Head Dosimetry Phantom [facility] Work Phone: [facility] Work Phone: CTA Head [...] Circulation: Recanalization of the previously occluded right GANG BORE OPERATOR with irregularity of the vessel. Intracranial vertebral arteries, PICA/AICA branches, basilar artery, SCAs and eddy current inspector are patent. No vessel cutoff, aneurysm or focal hemodynamically significant stenosis. Other: No evidence of a soft tissue mass or lymphadenopathy in the neck or superior mediastinum. The lung apices are clear. IMPRESSION: No acute intracranial abnormality. Enlargement of the left medial rectus muscle. Recanalization of the right GANG BORE OPERATOR with irregularity of the vessel. No significant [...] Circulation: Recanalization of the previously occluded right GANG BORE OPERATOR with irregularity of the vessel. Intracranial vertebral arteries, PICA/AICA branches, basilar artery, SCAs and eddy current inspector are patent. No vessel cutoff, aneurysm or focal hemodynamically significant stenosis. Other: No evidence of a soft tissue mass or lymphadenopathy in the neck or superior mediastinum. The lung apices are clear. IMPRESSION: No acute intracranial abnormality. Enlargement of the left medial rectus muscle. Recanalization of the right GANG BORE OPERATOR with irregularity of the vessel. No significant stenosis, dissection, or aneurysm in the intracranial or extracranial circulation. MACRO: None [facility] Radiology Study observation (narrative) [facility] Furnace Utility Operator Authentication Interface Message Text Attestation signed by [...] no cell, heme, or pigment DISC OD: Preston, sharp, perfused, and c/d 0.3 OS: [place], sharp, perfused, and c/d 0.25 VESSELS OD: [...] -Routine f/u with optometry. (Patient has an leather scraper). -Provided patient with return precautions should he have a recurrence of transient vision loss. Dhiraj Mustafa MD Ophthalmology Resident Plan discussed with senior resident on-call, Dr. Saldivar Please page [phone] with any questions or concerns. Commonly used [...] angle/disc/elsewh (more content not included)... Normal [facility] ED Provider Noteson 12-03-19 Furnace Utility Operator Authentication Interface Message Text ED RESIDENT CONTINUATION [...] physica (more content not included)... Normal [facility] Furnace Utility Operator Authentication Interface Message Text Attestation signed by [...] room at the time of the evaluation. Dispute Resolution Analyst: not needed - patient preferred language is Malawian. The history is provided by the Patient. [...] Mylene 12-02-2024 ESR (Bld) [Velocity] 18 mm/h [facility] Interpretation and review of laboratory results Normal [facility] ESR (Bld) [Velocity] 18 mm/h Normal <=20 [facility] Comment on above: Performed By: #### H STRP #### [facility] [address] [place] [address], [id number] GLUCOSE, FINGERSTICK-IN OFFI CEon 12-02-2024 Glucose [Mass/Vol] 104 mg/dL 74 - 109 mg/dL [facility] Interpretation and review of laboratory results Normal [facility] Glucose [Mass/Vol] 104 mg/dL Normal 74-109 [facility] Comment on above: Performed By: #### [id number] #### NURSING GLUCOSE PROGRAM [address] [place], [address] HIGH SENSITIVITY TROPONIN Io n 12-02-2024 Troponin I.cardiac DL <= 0.01 ng/mL [Mass/Vol] 11 ng/L [facility] - 15 ng/L [facility] HS TROPONIN I 11 ng/L Normal <=15 [facility] Comment on above: Order Comment: [place] ignacio troponin can result from acute myocardial [...] #### H STRP #### [facility] [address] [place] [address], [phone] Troponin I.cardiac DL <= 0.0 1 ng/mL [Mass/Vol]on 12-02-2024 Interpretation and review of laboratory results Normal [facility] Elevated troponin ca n result from acute [...] within the clinical context using provider judgement. [facility] XR CHEST PA+LAT 2 VIEWSon XR [...] agree with the resident's interpretation. Normal [facility] XR Chest PA and Lateralon EXAMINATION: [...] images and agree with the resident's interpretation. [facility] Radiology Study observation (narrative) [facility] XR Chest PA and LateralOrder ed By: Michael Mcdonald on 12-02-2024 [facility] Work Phone: Telephone Encounteron 2024 Furnace Utility Operator Authentication Interface Message Text COPD Care Coordination note: Subjective: I am doing ok Objective: Future Appointments (next 10) Provider Department Center 01/08/2025 10:20 AM (Arrive by 10:10 AM) Veronica Butt, PHYSICIAN OPHTHALMOLOGIST-CLINICAL ADMINISTRATOR [facility] Pulmonary Main [place] 01/18/2025 9:40 AM Anna Sanders PA-C [facility] Healt Called patient who reports: Patient reports [...] prescribed Attend all recommended appointments Brooke Wu Clinical Research Spec [phone] Option 3 Normal [facility] Progress Noteson 11-17-2024 Furnace Utility Operator Authentication Interface Message Text History provided by: [...] cerebra (more content not included)... Normal [facility] Furn[employer] Utility Operator Authentication Interface Message Text Identification was verified by patient verbalizing his name and date of . Normal [facility] Telephone Encounteron 2024 Furnace Utility Operator Authentication Interface Message Text Vijay, The patient has been referred to the pulmonary rehab program. The pulmonary referral that was placed does not have the measurements from the PFT included within it. On the referral it states Patient's Reference Values: No results found for: [id number]. In order to assess whether or not the patient qualifies, we will need these values filled in on the referral. Please consider ordering PFTs for the patient so that the updated values can be included in the referral. Based on the current referral, the patient will not be added to the workqueue at this time. Thank you. Normal [facility] BASIC METABOLIC PANELon - Anion gap [Moles/Vol] 13 mmol/L Normal 10-20 [facility] Comment on above: Performed By: #### C H8, MG ####S PATHOLOGY [id number] [place], [place], Calcium [Mass/Vol] 8.9 mg/dL Normal 8.6-10.3 [facility] Comment on above: Performed By: #### C H8, MG ####S PATHOLOGY [id number] [place], [place], Chloride [Moles/Vol] 101 mmol/L Normal 98-107 [facility] Comment on above: Performed By: #### C H8, MG ####S PATHOLOGY [id number] [place], [place], CO2 [Moles/Vol] 26 mmol/L Normal 21-31 [facility] Comment on above: Performed By: #### C H8, MG ####[facility] PATHOLOGY [id number] [place], [place], Creatinine [Mass/Vol] 1.03 mg/dL Normal 0.70-1.30 [facility] Comment on above: Performed By: #### C H8, MG ####S PATHOLOGY [id number] [place], [place], ESTIMATED GFR (CKD-EPI) 81 mL/min/1.73sqm Normal >=60 [facility] Comment on above: Result Comment: 2020 [...] Inclusion of Race in Diagnosing Kidney Disease. [place] Journal of Kidney Diseases 2021;79(2):268-88.e1. 2. N Engl J Med 1 Vol. 385 Issue 19 Pages 5439-3508 Performed By: #### Cosmo H8, MG ####[facility] PATHOLOGY [id number] [place], [place], Glucose [Mass/Vol] 104 mg/dL Normal 74-109 [facility] Comment on above: Performed By: #### Cosmo H8, MG ####[facility] PATHOLOGY [id number] [place], [place], Potassium [Moles/Vol] 4.0 mmol/L Normal 3.5-5.0 [facility] Comment on above: Performed By: #### Cosmo H8, MG ####[facility] PATHOLOGY [id number] [place], [place], Sodium [Moles/Vol] 136 mmol/L Normal 136-145 [facility] Comment on above: Performed By: #### Cosmo H8, MG ####[facility] PATHOLOGY [id number] [place], [place], Urea nitrogen [Mass/Vol] 29 mg/dL High 7-25 [facility] Comment on above: Performed By: #### Cosmo H8, MG ####[facility] PATHOLOGY [id number] [place], [place], Basic metabolic 2000 panelon 10-26-2024 Anion [...] Inclusion of Race in Diagnosing Kidney Disease. [place] Journal of Kidney Diseases 2021;79(2):268-88.e1. 2. N Engl J Med 2020 Vol. 385 Issue 19 Pages 8463-8798 Glucose [Mass/Vol] 104 mg/dL 74 - 109 [...] (Bld) [#/Vol] 0.07 10*3/uL Normal 0.00-0.20 [facility] Comment on above: Performed By: #### H STRP #### S PATHOLOGY LABORATORY [address] [place] [address], Basophils/100 WBC (Bld) 0.4 % Normal <=1.9 [facility] Comment on above: Performed By: #### H STRP #### S PATHOLOGY LABORATORY [address] [place] [address], Eosinophils (Bld) [#/Vol] 0.01 10*3/uL Normal 0.00-0.70 [facility] Comment on above: Performed By: #### H STRP #### S PATHOLOGY LABORATORY [address] [place], Eosinophils/100 WBC (Bld) 0.0 % Low 0.1-4.0 [facility] Comment on above: Performed By: #### H STRP #### S PATHOLOGY LABORATORY [address] [place], Erythrocyte distribution width (RBC) [Ratio] 15.6 % High 11.5-14.5 [facility] Comment on above: Performed By: #### H STRP #### S PATHOLOGY LABORATORY [address] [place], Hematocrit (Bld) [Volume fraction] 37.4 % Low 41.0-53.0 [facility] Comment on above: Performed By: #### H STRP #### [facility] PATH[facility] [address] [place], Hemoglobin (Bld) [Mass/Vol] 12.4 g/dL Low 13.9-16.3 [facility] Comment on above: Performed By: #### H STRP #### [facility] PATH[facility] [address] [place], Lymphocytes (Bld) [#/Vol] 2.30 10*3/uL Normal 1.00-4.80 [facility] Comment on above: Performed By: #### H STRP #### [facility] PATH[facility] [address] [place], Lymphocytes/100 WBC (Bld) 12.9 % Low 24.0-44.0 [facility] Comment on above: Performed By: #### H STRP #### [facility] PATH[facility] [address] [place], MCH (RBC) [Entitic mass] 29.1 pg Normal 26.0-34.0 [facility] Comment on above: Performed By: #### H STRP #### S PATHOLOGY LABORATORY [address] [place], MCHC (RBC) [Mass/Vol] 33.2 g/dL Normal 32.0-35.9 [facility] Comment on above: Performed By: #### H STRP #### S PATHOLOGY LABORATORY [address] [place], MCV (RBC) [Entitic vol] 88 fL Normal 80-100 [facility] Comment on above: Performed By: #### H STRP #### S PATHOLOGY LABORATORY [address] [place], Monocytes (Bld) [#/Vol] 1.39 10*3/uL High 0.20-1.00 [facility] Comment on above: Performed By: #### H STRP #### [facility] [address] [place], Monocytes/100 WBC (Bld) 7.8 % Normal 2.0-11.0 [facility] Comment on above: Performed By: #### H STRP #### [facility] PATH[facility] [address] [place], Neutrophils (Bld) [#/Vol] 13.98 10*3/uL High 1.50-8.00 [facility] Comment on above: Performed By: #### H STRP #### [facility] [address] [place], Neutrophils/100 WBC (Bld) 78.8 % High 31.0-76.0 [facility] Comment on above: Performed By: #### H STRP #### [facility] PATH[facility] [address] [place], Platelet mean volume (Bld) [Entitic vol] 7.4 fL Low 7.5-11.2 [facility] Comment on above: Performed By: #### H STRP #### [facility] PATH[facility] [address] [place], Platelets (Bld) [#/Vol] 306 10*3/uL Normal 150-400 [facility] Comment on above: Performed By: #### H STRP #### S PATHOLOGY LABORATORY [address] [place], RBC (Bld) [#/Vol] 4.27 10*6/uL Low 4.50-5.90 [facility] Comment on above: Performed By: #### H STRP #### [facility] [address] [place], WBC (Bld) [#/Vol] 17.7 10*3/uL High 4.5-11.5 [facility] Comment on above: Performed By: #### H STRP #### [facility] [address] [place], [place], Care Plan Noteon 10-26-2024 Furnace Utility Operator Authentication Interface Message Text EXERCISE OXIMETRY: = [...] was 94%. Aura Wagner MD Normal [facility] MAGNESIUMon 10-26-2024 Interpretation and review of laboratory results Normal [facility] [Mass/Vol] 2.3 mg/dL 1.9 - 2 .7 mg/dL [facility]esium [Mass/Vol] 2.3 mg/dL Normal 1.9-2.7 [facility] Comment on above: Performed By: #### C H8, MG ####[facility] PATHOLOGY [id number] [place], [place], No Panel Informationon 10-26 [facility] Progress Noteson 10-26-2024 Furnace Utility Operator Authentication Interface Message Text A walking pulse [...] bedside for transport at discharge, please call [employer] at [id number] (Available 08/02). Pt has been cleared to dc home with recs for OP Pulm Rehab. SW will follow for appropriate dc planning. EDITH NorrisA, LIME KILN TENDER Inpatient Career Resource Technician Normal [facility] Furn[employer] Utility Operator Authentication Interface Message Text Stepdown Unit ATTENDING NOTE AURA WAGNER MD - PIN [id number] I saw and evaluated the patient. I [...] MD Pulmonary, Critical Care and Sleep Medicine [facility] Normal [facility] Furnace Utility Operator Authentication Interface Message Text [facility] Step Down Unit - H AND P Elis Bills Age [age] year old male ROOM: [place] [address] Admitted 10/24/2024 7:57 PM Hospital Day: 2 HPI Elis Bills is a 64 year old male admitted on 10/24 with a PMH of severe persistent asthma (FEV1 64% FEV1/FVC 70%) , tobacco abuse, alcohol abuse (30 beers/week) TIA (P2 occlusion 2018, on plavix), GERD, HLD, lumbar laminectomy (07/2024) presenting with shortness of breath. Started in sikhism on Wednesday, took temp and was 102. [...] 3.92 FEF50/FIF50 0.41 90-100 FIVC (L) 2.62 [id number] (L/sec) 0.90 1.20 2.56 4.44 35 Time [...] trapping, normal TLC. Normal FEV1/FVC but low [id number]. Chest CT with multiple sub<6mm lung nodules. No mediastinal LAD. Airway wall thickening. - home: albuterol, breztri, pulmicort, singulair Dx: asthma vs COPD vs ADHF - prior echo from 201 (more content not included)... Normal [facility] BASIC METABOLIC PANELon 04-0 Anion gap [Moles/Vol] 15 mmol/L Normal 10-20 [facility] Comment on above: Performed By: #### C H8, MG #### [facility] [address] [place] [address], Calcium [Mass/Vol] 9.0 mg/dL Normal 8.6-10.3 [facility] Comment on above: Performed By: #### Cosmo H8, MG #### [facility] [address] [place] [address], Chloride [Moles/Vol] 98 mmol/L Normal 98-107 [facility] Comment on above: Performed By: #### C H8, MG #### [facility] [address] [place] [address], CO2 [Moles/Vol] 27 mmol/L Normal 21-31 [facility] Comment on above: Performed By: #### C H8, MG #### [facility] [address] [place] [address], Creatinine [Mass/Vol] 0.90 mg/dL Normal 0.70-1.30 [facility] Comment on above: Performed By: #### C H8, MG #### [facility] [address] [place] [address], ESTIMATED GFR (CKD-EPI) 95 mL/min/1.73sqm Normal >=60 [facility] Comment on above: Result Comment: 2020 [...] Inclusion of Race in Diagnosing Kidney Disease. [place] Journal of Kidney Diseases 202;79(2):268-88.e1. 2. N Engl J Med 1 Vol. 385 Issue 19 Pages 2057-5499 Performed By: #### C H8, MG #### [facility] [address] [place] [address], Glucose [Mass/Vol] 130 mg/dL High 74-109 [facility] Comment on above: Performed By: #### Cosmo H8, MG #### [facility] [address] [place] [address], Potassium [Moles/Vol] 4.0 mmol/L Normal 3.5-5.0 [facility] Comment on above: Performed By: #### Cosmo H8, MG #### [facility] [address] [place] [address], Sodium [Moles/Vol] 136 mmol/L Normal 136-145 [facility] Comment on above: Performed By: #### Cosmo H8, MG #### [facility] [address] [place] [address], Urea nitrogen [Mass/Vol] 14 mg/dL Normal 7-25 [facility] Comment on above: Performed By: #### Cosmo H8, MG #### [facility] [address] [place] [address], Basic metabolic 2000 panelon 10-25-2024 Anion gap [...] Inclusion of Race in Diagnosing Kidney Disease. [place] Journal of Kidney Diseases 202;79(2):268-88.e1. 2. N Engl J Med 2020 Vol. 385 Issue 19 Pages 3955-7103 Glucose [Mass/Vol] 130 mg/dL High 74 - [...] (Bld) [#/Vol] 0.18 10*3/uL Normal 0.00-0.20 [facility] Comment on above: Performed By: #### H STRP #### [facility] [address] [place] [address], Basophils/100 WBC (Bld) 1.1 % Normal <=1.9 [facility] Comment on above: Performed By: #### H STRP #### [facility] [address] [place] [address], Eosinophils (Bld) [#/Vol] 0.00 10*3/uL Normal 0.00-0.70 [facility] Comment on above: Performed By: #### H STRP #### [facility] [address] [place] [address], Eosinophils/100 WBC (Bld) 0.0 % Low 0.1-4.0 [facility] Comment on above: Performed By: #### H STRP #### [facility] [facility] [address] [place] [address], Erythrocyte distribution width (RBC) [Ratio] 15.9 % High 11.5-14.5 [facility] Comment on above: Performed By: #### H STRP #### [facility] [address] [place] [address], Hematocrit (Bld) [Volume fraction] 35.9 % Low 41.0-53.0 [facility] Comment on above: Performed By: #### H STRP #### [facility] [address] [place] [address], Hemoglobin (Bld) [Mass/Vol] 12.2 g/dL Low 13.9-16.3 [facility] Comment on above: Performed By: #### H STRP #### [facility] [address] [place] [address], Lymphocytes (Bld) [#/Vol] 0.80 10*3/uL Low 1.00-4.80 [facility] Comment on above: Performed By: #### H STRP #### [facility] [address] [place] [address], Lymphocytes/100 WBC (Bld) 5.0 % Low 24.0-44.0 [facility] Comment on above: Performed By: #### H STRP #### [facility] [address] [place] [address], MCH (RBC) [Entitic mass] 29.7 pg Normal 26.0-34.0 [facility] Comment on above: Performed By: #### H STRP #### [facility] [address] [place] [address], MCHC (RBC) [Mass/Vol] 34.0 g/dL Normal 32.0-35.9 [facility] Comment on above: Performed By: #### H STRP #### [facility] [address] [place] [address], MCV (RBC) [Entitic vol] 88 fL Normal 80-100 [facility] Comment on above: Performed By: #### H STRP #### [facility] [address] [place] [address], Monocytes (Bld) [#/Vol] 0.75 10*3/uL Normal 0.20-1.00 [facility] Comment on above: Performed By: #### H STRP #### [facility] [address] [place] [address], Monocytes/100 WBC (Bld) 4.7 % Normal 2.0-11.0 [facility] Comment on above: Performed By: #### H STRP #### [facility] [address] [place] [address], Neutrophils (Bld) [#/Vol] 14.28 10*3/uL High 1.50-8.00 [facility] Comment on above: Performed By: #### H STRP #### [facility] [address] [place] [address], Neutrophils/100 WBC (Bld) 89.2 % High 31.0-76.0 [facility] Comment on above: Performed By: #### H STRP #### [facility] [address] [place] [address], Platelet mean volume (Bld) [Entitic vol] 7.5 fL Normal 7.5-11.2 [facility] Comment on above: Performed By: #### H STRP #### [facility] [address] [place] [address], Platelets (Bld) [#/Vol] 277 10*3/uL Normal 150-400 [facility] Comment on above: Performed By: #### H STRP #### [facility] [address] [place] [address], RBC (Bld) [#/Vol] 4.10 10*6/uL Low 4.50-5.90 [facility] Comment on above: Performed By: #### H STRP #### [facility] [address] [place], [place], WBC (Bld) [#/Vol] 16.0 10*3/uL High 4.5-11.5 [facility] Comment on above: Performed By: #### H STRP #### [facility] [address] [place], [place], Consultson 10-25-2024 Furnace Utility Operator Authentication Interface Message Text SW is aware of consult for substance use resources. Pt declines substance use issues and states he does not need resources. Rena Thorne, [facility] Inpatient Career Resource Technician Normal [facility] Diabetes tracking panelOrder ed By: Deni Clark on 10-25-2024 Average glucose Estimated from glycated hemoglobin (Bld) [Mass/Vol] 117 mg/dL [facility] HbA1c (Bld) [Mass fraction] 5.7 % High 4.0 - 5.6 % [facility] Interpretation and review of laboratory results Abnormal [facility] H AND Pepe 10-25-2024 Furnace Utility Operator Authentication Interface Message Text Stepdown Unit ATTENDING NOTE AURA WAGNER MD - PIN [id number] I saw and evaluated the patient. I [...] MD Pulmonary, Critical Care and Sleep Medicine [facility] Normal [facility] Furnace Utility Operator Authentication Interface Message Text [facility] Step Down Unit - H AND P Elis Bills Age [age] year old male ROOM: [place] [address] Admitted 10/24/2024 7:57 PM Hospital Day: 2 [...] breath. He started to feel SOB in sikhism on Wednesday. Went home and used pulse [...] 8.2 (more content not included)... Normal [facility] MAGNESIUMon 10-25-2024 Interpretation and review of laboratory results Normal [facility] Magnesium [Mass/Vol] 2.2 mg/dL 1.9 - 2 .7 mg/dL [facility] Magnesium [Mass/Vol] 2.2 mg/dL Normal 1.9-2.7 [facility] Comment on above: Performed By: #### C H8, MG #### [facility] [address] [place], [place] [address], [address] No Panel Informationon 10-25 [facility] Procedureson 10-25-2024 Furnace Utility Operator Authentication Interface Message Text Transthoracic Echocardiographic Report Name: SANJU GILLIS Physician: : [id number] Referring ROXIE MONTGOMERY MD Physician: Age: 64 Medical Payment Poster: Keyona Avendano RDCS Exam Date: 10/25/2024 Fellow: [...] Doctor's order(s) verified. Patient's preferred language is Malawian . Verbal consent for left heart echo [...] 10/25/2024 11:29 AM Invalid Interpretation Code [facility] RESPIRATORY CULTURE, MISCon 10-25-2024 RESPIRATORY CULTURE, MISC MRSA: Methicillin-Resistant Staphylococcus aureus NOT detected by chromagar screen. C RESP: Isolates consistent with microorganisms encountered in the upper respiratory tract GRAM STAIN: 4+ Polymorphonuclear Leukocytes 2+ Squamous Epithelial Cells 2+ Gram Positive Cocci In Pairs Normal [facility] Comment on above: Performed By: #### C RESP ####[facility] [id number] [place], [place] [facility] HNO ID: [id number] Author: ROSE VICTORIA RT(R) Service: Radiology Author Type: Warehouse Receiving Clerk Type: [facility] Filed: 10/24/2024 11:35 Note Text: Radiology [...] PATIENT PRESENTS WITH AN IMPLANTABLE OR ATTACHED WATER USE INSPECTOR: No ALLERGIES: Reviewed and unchanged CONTRAST ALLERGY: [...] October 24, 2024 TIME: 11:35 AM Normal [facility] HNO ID: [id number] Author: DEVANG WATTS RT(R) Service: ? Author [...] PATIENT PRESENTS WITH AN IMPLANTABLE OR ATTACHED WATER USE INSPECTOR: No RADIOLOGY DEPARTMENT: General X-ray: Exam(s) Completed: Chest X-Ray PERIPHERAL IV DATA: Not applicable SIGNED BY: RT Lance(R) October 24, 2024 10:21 AM Normal [facility] BASIC METABOLIC PANELon 04-0 Anion gap [Moles/Vol] 16 mmol/L Normal 10-20 [facility] Comment on above: Performed By: #### C H8, HEPATIC, MG #### [facility] [address] [place], [place], Calcium [Mass/Vol] 9.2 mg/dL Normal 8.6-10.3 [facility] Comment on above: Performed By: #### C H8, HEPATIC, MG #### [facility] [address] [place], [place], Chloride [Moles/Vol] 98 mmol/L Normal 98-107 [facility] Comment on above: Performed By: #### C H8, HEPATIC, MG #### [facility] [address] [place], [place], CO2 [Moles/Vol] 25 mmol/L Normal 21-31 [facility] Comment on above: Performed By: #### C H8, HEPATIC, MG #### [facility] [address] [place], [place], Creatinine [Mass/Vol] 0.87 mg/dL Normal 0.70-1.30 [facility] Comment on above: Performed By: #### C H8, HEPATIC, MG #### [facility] [address] [place], [place], ESTIMATED GFR (CKD-EPI) 96 mL/min/1.73sqm Normal >=60 [facility] Comment on above: Result Comment: 2020 [...] Inclusion of Race in Diagnosing Kidney Disease. [place] Journal of Kidney Diseases 2021;79(2):268-88.e1. 2. N Engl J Med 2020 Vol. 385 Issue 19 Pages 6991-9536 Performed By: #### C H8, HEPATIC, MG #### [facility] [address] [place], [place], Glucose [Mass/Vol] 140 mg/dL High 74-109 [facility] Comment on above: Performed By: #### C H8, HEPATIC, MG #### [facility] [address] [place] [address], Potassium [Moles/Vol] 4.5 mmol/L Normal 3.5-5.0 [facility] Comment on above: Performed By: #### Cosmo H8, HEPATIC, MG #### [facility] [address] [place], [place], Sodium [Moles/Vol] 134 mmol/L Low 136-145 [facility] Comment on above: Performed By: #### Cosmo H8, HEPATIC, MG #### [facility] [address] [place] [address], Urea nitrogen [Mass/Vol] 13 mg/dL Normal 7-25 [facility] Comment on above: Performed By: #### Cosmo H8, HEPATIC, MG #### [facility] [address] [place] [address], BLOOD GAS, ARTERIALOrdered B y: Shanekaron Finn [...] H STRP #### [facility] [address] [place], [place], CR PCO2 41.3 mm Hg Normal 35.0-45.0 [facility] Comment on above: Performed By: #### H STRP #### [facility] [address] [place] [address], CR PHA 7.393 Normal 7.350-7.450 [facility] Comment on above: Performed By: #### H STRP #### [facility] [address] [place] [address], CR PO2 107 mm Hg High 80-100 [facility] Comment on above: Performed By: #### H STRP #### [facility] [address] [place] [address], FIO2 (CATEGORY) 4 LPM Normal [facility] Comment on above: Performed By: #### H STRP #### [facility] [address] [place] [address], HCO3 (Bld) [Moles/Vol] 25 mmol/L Normal 21-28 [facility] Comment on above: Performed By: #### H STRP #### [facility] [address] [place] [address], MODE Nasal Canula Normal [facility] Comment on above: Performed By: #### H STRP #### [facility] [address] [place] [address], Oxygen saturation in Blood 98.0 % Normal 95.0-99.0 [facility] Comment on above: Performed By: #### H STRP #### [facility] [address] [place] [address], Bacteria Bld Culton 10-25-19 25 Bacteria identified Cx Nom (Bld) CULTURE, BLOOD: No growth 5 days Normal [facility] Comment on above: Performed By: #### 6 00-7 #### [facility] CLIA [id number] [address] STATES OF [facility] Bacteria Spec Resp Culton Bacteria identified Respiratory culture Nom (Unsp spec) CULTURE, RESPIRATORY: Few Normal respiratory mark present GRAM STAIN: Few Mixed oral mark Moderate Polymorphonuclear leukocytes Rare Epithelial cells Abnormal [facility] Comment on above: Performed By: #### 3 2355-0 #### [facility] CLIA [id number] [address] [place] [address] [place] Basic metabolic 2000 [...] Inclusion of Race in Diagnosing Kidney Disease. [place] Journal of Kidney Diseases 202;79(2):268-88.e1. 2. N Engl J Med 2020 Vol. 385 Issue 19 Pages 8080-1487 Glucose [Mass/Vol] 140 mg/dL High 74 - 109 mg/dL [facility] Interpretation and review of laboratory results Abnormal [facility] Potassium [Moles/Vol] 4.5 mmol/L 3.5 - 5.0 mmol/L [facility] Sodium [Moles/Vol] 134 mmol/L Low 136 - 145 mmol/L [facility] Urea nitrogen [Mass/Vol] 13 mg/dL 7 - 25 mg/dL [facility] CBC W Auto Differential pane l (Bld)on 10-24-2024 Basophils (Bld) [#/Vol] 10*3/uL Normal <0.11 [facility] Comment on above: Order Comment: Speci men Type: BLOOD SPECIMENOrdering Facility: [facility] Address: [address], [place] [address] Performed By: #### 3 2355-0 #### [facility] CLIA [id number] [address] [place] Basophils/100 WBC (Bld) 0.1 % Normal [facility] Comment on above: Order Comment: Speci men Type: BLOOD SPECIMENOrdering Facility: [facility] Address: [facility] [place] [address] Performed By: #### 3 2355-0 #### [facility] CLIA [id number] [address] [place] Differential cell count method Nom (Bld) Auto Normal [facility] Comment on above: Order Comment: Speci men Type: BLOOD SPECIMENOrdering Facility: [facility] Address: [address] [place] [address] Performed By: #### 3 2355-0 #### [facility] CLIA [id number] [address] [place] Eosinophils (Bld) [#/Vol] 10*3/uL Normal <0.46 [facility] Comment on above: Order Comment: Speci men Type: BLOOD SPECIMENOrdering Facility: [facility] Address: [address] [place] [address] Performed By: #### 3 2355-0 #### [facility] CLIA [id number] [address] [place] Eosinophils/100 WBC (Bld) 0.0 % Normal [facility] Comment on above: Order Comment: Speci men Type: BLOOD SPECIMENOrdering Facility: [facility] Address: [address] [place] [address] Performed By: #### 3 2355-0 #### [facility] CLIA [id number] [address] [place] Erythrocyte distribution width (RBC) [Ratio] 15.6 % High 11.5-15.0 [facility] Comment on above: Order Comment: Speci men Type: BLOOD SPECIMENOrdering Facility: [facility] Address: [address] [place] [address] Performed By: #### 3 2355-0 #### [facility] CLIA [id number] [address] [place] Hematocrit (Bld) [Volume fraction] 38.9 % Low 39.0-51.0 [facility] Comment on above: Order Comment: Speci men Type: BLOOD SPECIMENOrdering Facility: [facility] Address: [address] [place] [address] Performed By: #### 3 2355-0 #### [facility] CLIA [id number] [address] [place] Hemoglobin (Bld) [Mass/Vol] 12.9 g/dL Low 13.0-17.0 [facility] Comment on above: Order Comment: Speci men Type: BLOOD SPECIMENOrdering Facility: [facility] Address: [address] [place] [address] Performed By: #### 3 2355-0 #### [facility] CLIA [id number] [address] [place] Immature granulocytes (Bld) [#/Vol] 0.03 10*3/uL Normal <0.10 [facility] Comment on above: Order Comment: Speci men Type: BLOOD SPECIMENOrdering Facility: [facility] Address: [address] [place] [address] Performed By: #### 3 2355-0 #### [facility] CLIA [id number] [address] [place] Immature granulocytes/100 WBC (Bld) 0.2 % Normal [facility] Comment on above: Order Comment: Speci men Type: BLOOD SPECIMENOrdering Facility: [facility] Address: [address] [place] [address] Performed By: #### 3 2355-0 #### [facility] CLIA [id number] [address] [place] Lymphocytes (Bld) [#/Vol] 1.08 10*3/uL Normal 1.00-4.00 [facility] Comment on above: Order Comment: Speci men Type: BLOOD SPECIMENOrdering Facility: [facility] Address: [address] [place] [address] Performed By: #### 3 2355-0 #### [facility] CLIA [id number] [address] Lymphocytes/100 WBC (Bld) 5.8 % Normal [facility] Comment on above: Order Comment: Speci men Type: BLOOD SPECIMENOrdering Facility: [facility] Address: [address] [place] [address] Performed By: #### 3 2355-0 #### [facility] CLIA [id number] [address] MCH (RBC) [Entitic mass] 29.1 pg Normal 26.0-34.0 [facility] Comment on above: Order Comment: Speci men Type: BLOOD SPECIMENOrdering Facility: [facility] Address: [address] [place] [address] Performed By: #### 3 2355-0 #### [facility] CLIA [id number] [address] STATES OF [facility] MCHC (RBC) [Mass/Vol] 33.2 g/dL Normal 30.5-36.0 [facility] Comment on above: Order Comment: Speci men Type: BLOOD SPECIMENOrdering Facility: [facility] Address: [address] [place] [address] Performed By: #### 3 2355-0 #### [facility] CLIA [id number] [address] [place] MCV (RBC) [Entitic vol] 87.8 fL Normal 80.0-100.0 [facility] Comment on above: Order Comment: Speci men Type: BLOOD SPECIMENOrdering Facility: [facility] Address: [address] [place] [address] Performed By: #### 3 2355-0 #### [facility] CLIA [id number] [address] [place] [address] [place] Monocytes (Bld) [#/Vol] 1.62 10*3/uL High <0.87 [facility] Comment on above: Order Comment: Speci men Type: BLOOD SPECIMENOrdering Facility: [facility] Address: [address] [place] [address] Performed By: #### 3 2355-0 #### [facility] CLIA [id number] [address] [place] Monocytes/100 WBC (Bld) 8.8 % Normal [facility] Comment on above: Order Comment: Speci men Type: BLOOD SPECIMENOrdering Facility: [facility] Address: [address] [place] [address] Performed By: #### 3 2355-0 #### [facility] CLIA [id number] [address] [place] [address] [place] Neutrophils (Bld) [#/Vol] 15.73 10*3/uL High 1.45-7.50 [facility] Comment on above: Order Comment: Speci men Type: BLOOD SPECIMENOrdering Facility: [facility] Address: [address] [place] [address] Performed By: #### 3 5-0 #### [facility] CLIA [id number] [address] [place] Neutrophils/100 WBC (Bld) 85.1 % Normal [facility] Comment on above: Order Comment: Speci men Type: BLOOD SPECIMENOrdering Facility: [facility] Address: [address] [place] [address] Performed By: #### 3 2355-0 #### [facility] CLIA [id number] [address] [place] [address] [place] Nucleated RBC (Bld) [#/Vol] Normal [facility] Comment on above: Order Comment: Speci men Type: BLOOD SPECIMENOrdering Facility: [facility] Address: [address] [place] [address] Performed By: #### 3 2355-0 #### [facility] CLIA [id number] [address] [place] Nucleated RBC/100 WBC (Bld) [Ratio] Normal [facility] Comment on above: Order Comment: Speci men Type: BLOOD SPECIMENOrdering Facility: [facility] Address: [address] [place] [address] Performed By: #### 3 2355-0 #### [facility] CLIA [id number] [address] [place] Platelet mean volume (Bld) [Entitic vol] 9.2 fL Normal 9.0-12.7 [facility] Comment on above: Order Comment: Speci men Type: BLOOD SPECIMENOrdering Facility: [facility] Address: [address] [place] [address] Performed By: #### 3 2355-0 #### [facility] CLIA [id number] [address] [place] Platelets (Bld) [#/Vol] 276 10*3/uL Normal 150-400 [facility] Comment on above: Order Comment: Speci men Type: BLOOD SPECIMENOrdering Facility: [facility] Address: [address] [place] [address] Performed By: #### 3 2355-0 #### [facility] CLIA [id number] [address] [place] RBC (Bld) [#/Vol] 4.43 10*6/uL Normal 4.20-6.00 [facility] Comment on above: Order Comment: Speci men Type: BLOOD SPECIMENOrdering Facility: [facility] Address: [address] [place] [address] Performed By: #### 3 2355-0 #### [facility] CLIA [id number] [address] [place] WBC (Bld) [#/Vol] 18.48 10*3/uL High 3.70-11.00 [facility] Comment on above: Order Comment: Speci men Type: BLOOD SPECIMENOrdering Facility: [facility] Address: [address] [place] [address] Performed By: #### 3 2355-0 #### [facility] CLIA [id number] 1 [place] [address] [place] [facility] CBC WITH DIFFERENTIALon Basophils (Bld) [#/Vol] 0.05 [...] RBC (Bld) [#/Vol] 4.18 10*6/uL Low [facility] WBC (Bld) [#/Vol] 16.7 10*3/uL High 4.5 - 11.5 K/uL [facility] Basophils (Bld) [#/Vol] 0.05 10*3/uL Normal 0.00-0.20 [facility] Comment on above: Performed By: #### H STRP #### [facility] [address] [place] [address], Basophils/100 WBC (Bld) 0.3 % Normal <=1.9 [facility] Comment on above: Performed By: #### H STRP #### [facility] [address] [place] [address], Eosinophils (Bld) [#/Vol] 0.00 10*3/uL Normal 0.00-0.70 [facility] Comment on above: Performed By: #### H STRP #### [facility] [address] [place] [address], Eosinophils/100 WBC (Bld) 0.0 % Low 0.1-4.0 [facility] Comment on above: Performed By: #### H STRP #### [facility] [address] [place] [address], Erythrocyte distribution width (RBC) [Ratio] 15.8 % High 11.5-14.5 [facility] Comment on above: Performed By: #### H STRP #### S [facility] [address] [place] [address], Hematocrit (Bld) [Volume fraction] 36.3 % Low 41.0-53.0 [facility] Comment on above: Performed By: #### H STRP #### [facility] [address] [place] [address], Hemoglobin (Bld) [Mass/Vol] 12.3 g/dL Low 13.9-16.3 [facility] Comment on above: Performed By: #### H STRP #### [facility] [address] [place], [place], Lymphocytes (Bld) [#/Vol] 0.57 10*3/uL Low 1.00-4.80 [facility] Comment on above: Performed By: #### H STRP #### [facility] [address] [place], [place], Lymphocytes/100 WBC (Bld) 3.4 % Low 24.0-44.0 [facility] Comment on above: Performed By: #### H STRP #### [facility] [address] [place], [place], MCH (RBC) [Entitic mass] 29.4 pg Normal 26.0-34.0 [facility] Comment on above: Performed By: #### H STRP #### [facility] [address] [place], MCHC (RBC) [Mass/Vol] 33.8 g/dL Normal 32.0-35.9 [facility] Comment on above: Performed By: #### H STRP #### [facility] [address] [place], MCV (RBC) [Entitic vol] 87 fL Normal 80-100 [facility] Comment on above: Performed By: #### H STRP #### [facility] [address] [place], [place], Monocytes (Bld) [#/Vol] 0.49 10*3/uL Normal 0.20-1.00 [facility] Comment on above: Performed By: #### H STRP #### [facility] [address] [place], [place], Monocytes/100 WBC (Bld) 2.9 % Normal 2.0-11.0 [facility] Comment on above: Performed By: #### H STRP #### [facility] [address] [place], [place], Neutrophils (Bld) [#/Vol] 15.64 10*3/uL High 1.50-8.00 [facility] Comment on above: Performed By: #### H STRP #### S PATHOLOGY LABORATORY [address] [place], [place], Neutrophils/100 WBC (Bld) 93.4 % High 31.0-76.0 [facility] Comment on above: Performed By: #### H STRP #### S [facility] LAB[facility]ATORY [address] [place], [place], Platelet mean volume (Bld) [Entitic vol] 7.5 fL Normal 7.5-11.2 [facility] Comment on above: Performed By: #### H STRP #### [facility] [address] [place], Platelets (Bld) [#/Vol] 266 10*3/uL Normal 150-400 [facility] Comment on above: Performed By: #### H STRP #### [facility] [address] [place] [address], RBC (Bld) [#/Vol] 4.18 10*6/uL Low 4.50-5.90 [facility] Comment on above: Performed By: #### H STRP #### [facility] [address] [place], WBC (Bld) [#/Vol] 16.7 10*3/uL High 4.5-11.5 [facility] Comment on above: Performed By: #### H STRP #### [facility] [address] [place], [place], CTA CHEST (NON GATED) W IVCO N PEon 10-24-2024 CTA CHEST (NON GATED) W IVCON PE * * *Final Report* * * DATE OF EXAM: Oct 24 2024 11:36AM [facility] 0564 - CTA CHEST (NON GATED) W [...] Mediastinal and bilateral hilar adenopathy, new finding Stock Controller: YAIR Transcribe Date/Time: Oct 24 2024 11:51A Dictated by : AFTAB MARTINEZ MD This examination was interpreted and the report reviewed and electronically signed by: AFTAB MARTINEZ MD on Oct 24 2024 11:56AM EST [id number] N Normal [facility] Comprehensive metabolic 2000 panelon 10-24-2024 Albumin [Mass/Vol] 4.1 g/dL Normal 3.9-4.9 [facility] Comment on above: Order Comment: Speci men Type: BLOOD SPECIMENOrdering Facility: [facility] Address: [address] [place] [address] Performed By: #### 2 4323-8, 20324-3, 41785-7 ####[facility] LABCLIA [id number] [place] [address] [place] ALP [Catalytic activity/Vol] 115 U/L High 38-113 [facility] Comment on above: Order Comment: Speci men Type: BLOOD SPECIMENOrdering Facility: [facility] Address: [address] [place] [address] Performed By: #### 2 4323-8, 34908-4, 12950-2 ####[facility] [id number] [place] [address] [place] ALT With P-5'-P [Catalytic activity/Vol] 19 U/L Normal 10-54 [facility] Comment on above: Order Comment: Speci men Type: BLOOD SPECIMENOrdering Facility: [facility] Address: [address] [place] [address] Performed By: #### 2 4323-8, 00345-7, 81736-8 ####[facility] LABCLIA [id number] [facility] [place] [address] [place] Anion gap [Moles/Vol] 14 mmol/L Normal 8-15 [facility] Comment on above: Order Comment: Speci men Type: BLOOD SPECIMENOrdering Facility: [facility] Address: [address] [place] [address] Performed By: #### 2 4323-8, 57565-1, 14352-5 ####[facility] LABCLIA [id number] [facility] [address] [place] AST With P-5'-P [Catalytic activity/Vol] 16 U/L Normal 14-40 [facility] Comment on above: Order Comment: Speci men Type: BLOOD SPECIMENOrdering Facility: [facility] Address: [address] [place] [address] Performed By: #### 2 4323-8, 92493-9, 28791-0 ####[facility] LABCLIA [id number] [place] [address] [place] Bilirubin [Mass/Vol] 0.8 mg/dL Normal 0.2-1.3 [facility] Comment on above: Order Comment: Speci men Type: BLOOD SPECIMENOrdering Facility: [facility] Address: [address] [place] [address] Performed By: #### 2 4323-8, 85551-0, 82969-2 ####[facility] [place] LABCLIA [id number] [place] [address] [place] Calcium [Mass/Vol] 9.5 mg/dL Normal 8.5-10.2 [facility] Comment on above: Order Comment: Speci men Type: BLOOD SPECIMENOrdering Facility: [facility] Address: [address] [place] [address] Performed By: #### 2 4323-8, 65258-7, 12925-2 ####[facility] [place] LABCLIA [id number] [place] [address] [place] Chloride [Moles/Vol] 96 mmol/L Low 98-107 [facility] Comment on above: Order Comment: Speci men Type: BLOOD SPECIMENOrdering Facility: [facility] Address: [address] [place] [address] Performed By: #### 2 4323-8, 75182-7, 71293-7 ####[facility] LABCLIA [id number] [place] [address] [place] CO2 [Moles/Vol] 23 mmol/L Normal 22-30 [facility] Comment on above: Order Comment: Speci men Type: BLOOD SPECIMENOrdering Facility: [facility] Address: [address] [place] [address] Performed By: #### 2 4323-8, 49652-4, 29189-2 ####[facility] LABCLIA [id number] [place] [address] [place] Creatinine [Mass/Vol] 0.89 mg/dL Normal 0.73-1.22 [facility] Comment on above: Order Comment: Speci men Type: BLOOD SPECIMENOrdering Facility: [facility] Address: [address] [place] [address] Performed By: #### 2 4323-8, , 77334-6 ####[facility] LABCLIA [id number] [place] [address] [place] Creatinine and Glomerular filtration rate.predicted panel (S/P/Bld) 95 mL/min/1.73m??? Normal >=60 [facility] Comment on above: Order Comment: Speci [facility] Type: BLOOD SPECIMENOrdering Facility: [facility] Address: [address] [place] [address] Result Comment: Lala mated Glomerular Filtration Rate [...] actual GFR. Performed By: #### 2 4323-8, 34936-6, 03549-4 ####[facility] [employer] LABCLIA [id number] [place] [address] [place] Glucose [Mass/Vol] 117 mg/dL High 74-99 [facility] Comment on above: Order Comment: Speci men Type: BLOOD SPECIMENOrdering Facility: [facility] Address: [address] [place] [address] Result Comment: The [place] Diabetes Association (ADA) provides guidance for cutoff [...] Standards of Medical Care in Diabetes 2016, [place] [employer]. Diabetes Care. 2016.39(Suppl 1). Performed By: #### 2 4323-8, 42326-8, 56305-5 ####[facility] [employer] LABCLIA [id number] [place] [address] [place] Potassium [Moles/Vol] 4.1 mmol/L Normal 3.7-5.1 [facility] Comment on above: Order Comment: Speci men Type: BLOOD SPECIMENOrdering Facility: [facility] Address: [address] [place] [address] Performed By: #### 2 4323-8, 96853-4, 02238-6 ####[facility] [employer] LABCLIA [id number] [place] [address] [place] Protein [Mass/Vol] 7.5 g/dL Normal 6.3-8.0 [facility] Comment on above: Order Comment: Speci men Type: BLOOD SPECIMENOrdering Facility: [facility] Address: [address] [place] [id number] Performed By: #### 2 4323-8, 74864-7, 95766-6 ####[facility] [employer] LABCLIA [id number] [place] [address] [place] Sodium [Moles/Vol] 133 mmol/L Low 136-144 [facility] Comment on above: Order Comment: Karthikeyani men Type: BLOOD SPECIMENOrdering Facility: [facility] Address: [address] [place] [address] Performed By: #### 2 4323-8, 77135-2, 07059-7 ####[facility] LABCL[facility] [id number] [place] [address] [place] [facility] Urea nitrogen [Mass/Vol] 13 mg/dL Normal 9-24 [facility] Comment on above: Order Comment: Speci men Type: BLOOD SPECIMENOrdering Facility: [facility] Address: [address] [place] [address] Performed By: #### 2 4323-8, 16304-8, 81965-1 ####[facility] LABCLIA [id number] [place] [address] [facility] ECG COMPLETEon 10-24-2024 ECG COMPLETE Ventricular Rate : 9 3 BPM Atrial Rate : 93 BPM P-R Interval : 134 ms QRS Duration : 122 ms Q-T Interval : 388 ms QTC Calculation(Bazett) : 482 ms Calculated P Grady : 45 degrees Calculated R Grady : 71 degrees Calculated T Grady : 26 degrees SINUS RHYTHM WITH OCCASIONAL PREMATURE VENTRICULAR COMPLEXES RIGHT BUNDLE BRANCH BLOCK ABNORMAL ECG WHEN COMPARED WITH ECG OF 14-Jul-2024 13:13, PREMATURE VENTRICULAR COMPLEXES ARE NOW PRESENT Confirmed by MD SUAREZ VINAYAK ([id number]) on 10/25/2024 2:19:53 PM NAME : ELIS BILLS PID : [id number] : 1960 Gender : Male Race : ORD : [id number] Procedure Date : Oct 24 2024 09:16:43 Edit Date : Oct 25 2024 14:19:54 Diagnosis: SINUS RHYTHM WITH OCCASIONAL PREMATURE VENTRICULAR COMPLEXES RIGHT BUNDLE BRANCH BLOCK ABNORMAL ECG WHEN COMPARED WITH ECG OF 14-Jul-2024 13:13, PREMATURE VENTRICULAR COMPLEXES ARE NOW PRESENT Confirmed by MD SUAREZ VINAYAK ([id number]) on 10/25/2024 2:19:53 PM Test Reason : Chest Pain Location : 191 : [facility] ED Overread By : MD SUAREZ VINAYAK Edited By : MD SUAREZ VINAYAK Referred By : , Acquired by : DAREN RUCKER [facility] ED NOTEon 10-24-2024 ED NOTE HNO ID: [id number] Author: TINCHER, JORGE, RN Service: Nursing Author Type: Registered Nurse Type: ED Notes Filed: 10/24/2024 18:22 Note Text: Patient leaves ED with [facility]. [facility] ED NOTE HNO ID: [id number] Author: JORGE JONES RN Service: Nursing Author Type: Registered Nurse Type: ED Notes Filed: 10/24/2024 18:15 Note Text: at bedside with patient and EMS. [facility] ED NOTE HNO ID: [id number] Author: JORGE JONES RN Service: Nursing Author Type: Registered Nurse Type: ED Notes Filed: 10/24/2024 18:14 Note Text: [facility] remains in room with patient on their monitor. They are transferring patient to EMS BiPAP. [facility] ED NOTE HNO ID: [id number] Author: JORGE JONES RN Service: Nursing Author Type: Registered Nurse Type: ED Notes Filed: 10/24/2024 16:52 Note Text: [facility] ETA 45-60 minutes [facility] ED NOTE HNO ID: [id number] Author: YOVANY JULIEN RN Service: ? Author Type: Registered Nurse Type: ED Notes Filed: 10/24/2024 16:51 Note Text: Bed assignment [address] bed 412 Report [phone] [facility] ED NOTE HNO ID: [id number] Author: JORGE JONES RN Service: Nursing Author Type: Registered Nurse Type: ED Notes Filed: 10/24/2024 16:20 Note Text: Patient removed from bi pap for a demanded break. Nasal canula at 6L applied. aware. Respiratory therapy remains at bedside during the break from BiPap. [facility] ED NOTE HNO ID: [id number] Author: JORGE JONES RN Service: Nursing Author Type: Registered Nurse Type: ED Notes Filed: 10/24/2024 14:19 Note Text: BiPAP removed per patient demands. Nasal Canula reapplied. [facility] ED NOTE HNO ID: [id number] Author: JORGE JONES RN Service: Nursing Author Type: Registered Nurse Type: ED Notes Filed: 10/24/2024 13:50 Note Text: Patient has asked twice to have BiPap removed. This RN discussed patients request with and Respiratory therapy. They will discuss with patient as well as this RN. [facility] ED NOTE HNO ID: [id number] Author: JORGE JONES, RN Service: Nursing Author Type: Registered Nurse Type: ED Notes Filed: 10/24/2024 13:35 Note Text: accepts patient at [facility]. Will call back with bed assignment. [facility] ED NOTE HNO ID: [id number] Author: JORGE JONES, RN Service: Nursing Author Type: Registered Nurse Type: ED Notes Filed: 10/24/2024 09:29 Note Text: Don presents with complaints of SOB. Wednesday he started to feel SOB during sikhism with activity. He developed a fever (102f) [...] spouse has had ear pain and congestion. [facility] ED NOTE HNO ID: [id number] Author: JORGE JONES RN Service: Nursing Author Type: Registered Nurse Type: ED Notes Filed: 10/24/2024 18:09 Note Text: EMS AT BEDSIDE [facility] ED PROV NOTEon 10-24-2024 ED PROV NOTE HNO ID: [id number] Author: BRIAN ANGLIN MD Service: Emergency Medicine [...] symptoms. Pat (more content not included)... Normal [facility] HEMOGLOBIN A1Con 10-24-2024 Glucose [Mass/Vol] 117 mg/dL Normal [facility] Comment on above: Performed By: #### H STRP #### [facility] [address] [place] [address], [address] HbA1c (Bld) [Mass fraction] 5.7 % High 4.0-5.6 [facility] Comment on above: Performed By: #### H STRP #### [facility] [address] [place] [address], HEPATIC FUNCTION PANELon Albumin [Mass/Vol] 4.2 g/dL [...] Albumin [Mass/Vol] 4.2 g/dL Normal 3.5-5.7 [facility] Comment on above: Performed By: #### Cosmo Roa, HEPATIC, MG #### S [facility] LABORATORY [address] [place] [address], ALK 94 IU/L Normal 34-104 [facility] Comment on above: Performed By: #### Cosmo Dunbar8, HEPATIC, MG #### S [facility] LAB[facility] [address] [place] [address], ALT [Catalytic activity/Vol] 19 U/L Normal 7-52 [facility] Comment on above: Performed By: #### Cosmo HRosi, HEPATIC, MG #### [facility] [address] [place] [address], AST [Catalytic activity/Vol] 16 U/L Normal 13-39 [facility] Comment on above: Performed By: #### Cosmo H8, HEPATIC, MG #### [facility] [address] [place] [address], Bilirubin [Mass/Vol] 0.6 mg/dL Normal 0.3-1.0 [facility] Comment on above: Performed By: #### Cosmo H8, HEPATIC, MG #### S [facility] LAB[facility]AT[facility] [address] [place] [address], Bilirubin.direct [Mass/Vol] 0.14 mg/dL Normal 0.03-0.18 [facility] Comment on above: Performed By: #### Cosmo H8, HEPATIC, MG #### [facility] [address] [place], [place], Protein [Mass/Vol] 7.1 g/dL Normal 6.0-8.3 [facility] Comment on above: Performed By: #### Cosmo H8, HEPATIC, MG #### [facility] [address] [place], [place], HIGH SENSITIVITY TROPONIN T (INITIAL)on 10-24-2024 Troponin T.cardiac High sensitivity method [Mass/Vol] 51 ng/L High <12 [facility] Comment on above: Order Comment: Speci men Type: BLOOD SPECIMENOrdering Facility: [facility] Address: [address] [place] [address] Performed By: #### L [id number] ####[facility] LABCLIA [id number] [address] HIGH SENSITIVITY TROPONIN T (SECOND)on 10-24-2024 Troponin T.cardiac High sensitivity method [Mass/Vol] 47 ng/L High <12 [facility] Comment on above: Order Comment: Speci men Type: BLOOD SPECIMENOrdering Facility: [facility] Address: [address] [place] [address] Performed By: #### L [id number] ####[facility] LABCLIA [id number] [address] HIGH SENSITIVITY TROPONIN T (THIRD) 3 HRS AFTER INITIALon 10-24-2024 Troponin T.cardiac High sensitivity method [Mass/Vol] 34 ng/L High <12 [facility] Comment on above: Order Comment: Speci men Type: BLOOD SPECIMENOrdering Facility: [facility] Address: [address] [place] [address] Performed By: #### 3 2355-0 #### [facility] CLIA [id number] [address] [place] Lactate (Bld) [Moles/Vol]on 10-24-2024 Lactate [Moles/Vol] 1.8 mmol/L Normal 0.5-2.2 [facility] Comment on above: Order Comment: Speci brian Type: BLOOD SPECIMENOrdering Facility: [facility] Address: [address] [place] [address] Performed By: #### 3 2693-4 ####[facility] LABCLIA [id number] [place] [address] [facility] MAGNESIUMon 10-24-2024 Magnesium [Mass/Vol] 2.2 mg/dL 1.9 - 2 .7 mg/dL [facility] Magnesium [Mass/Vol] 2.2 mg/dL Normal 1.9-2.7 [facility] Comment on above: Performed By: #### C H8, HEPATIC, MG #### [facility] [address] [place] [address], Magnesium SerPl-mCncon 10-24 Magnesium [Mass/Vol] 1.9 mg/dL Normal 1.7-2.3 [facility] Comment on above: Order Comment: Speci men Type: BLOOD SPECIMENOrdering Facility: [facility] Address: [address] [place] [address] Performed By: #### 2 4323-8, 66889-5, 15132-7 ####[facility] LAB[facility] [id number] [place] [id number] [facility] NT-proBNP SerPl-mCncon 10-24 Natriuretic peptide.B prohormone N-Terminal [Mass/Vol] 1007 pg/mL High <125 [facility] Comment on above: Order Comment: Speci men Type: BLOOD SPECIMENOrdering Facility: [facility] Address: [address] [place] [address] Performed By: #### 2 4323-8, 65843-3, 93358-3 ####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 [...] nicotine patch Remainder of plan per internet retailer note. Raji Curran MD Internal Medicine, PGY-3 Available via [employer] Normal [facility] RED/YELLOW TOP TUBE, [...] Glucose Ql (U) Negative Normal Negative [facility] Comment on above: Order Comment: [place] troponin can result from acute myocardial [...] H STRP #### [facility] [address] [place], [address] Protein (U) [Mass/Vol] 70 mg/dL Abnormal Negative [facility] Comment on above: Order Comment: [place] troponin can result from acute myocardial [...] H STRP #### [facility] [address] [place], [place], U APPEAR Clear Normal Clear [facility] Comment on above: Order Comment: [place] troponin can result from acute myocardial [...] H STRP #### [facility] [address] [place], [place], U BILI Negative Normal Negative [facility] Comment on above: Order Comment: [place] troponin can result from acute myocardial [...] #### H STRP #### [facility] [address] [place] [address], [address] U BLOOD Trace Abnormal Negative [facility] Comment on above: Order Comment: [place] troponin can result from acute myocardial [...] #### H STRP #### S [facility] [address] [place] [address], [address] U COLOR Yellow Normal Colorless [facility] Comment on above: Order Comment: [place] troponin can result from acute myocardial [...] #### H STRP #### [facility] [address] [place] [address], [address] U KETONE Negative Normal Negative [facility] Comment on above: Order Comment: [place] troponin can result from acute myocardial [...] #### H STRP #### [facility] [address] [place] [address], [address] U LEUK Negative Normal Negative [facility] Comment on above: Order Comment: [place] troponin can result from acute myocardial [...] H STRP #### [facility] [address] [place], [address] U NITRITE Negative Normal Negative [facility] Comment on above: Order Comment: [place] troponin can result from acute myocardial [...] H STRP #### S [facility] [address] [place], [place], U PH 6.5 Normal 5.0-8.0 [facility] Comment on above: Order Comment: [place] troponin can result from acute myocardial [...] H STRP #### [facility] [address] [place], [place], U RBC 0-2 Normal 0-2 [facility] [employer] Comment on above: Order Comment: [place] troponin can result from acute myocardial [...] #### H STRP #### [facility] [address] [place] [address], [address] U SG 1.036 High <=1.030 [facility] Comment on above: Order Comment: [place] troponin can result from acute myocardial [...] #### H STRP #### [facility] [address] [place] [address], [address] U UROBILI Negative Normal Negative [facility] Comment on above: Order Comment: [place] troponin can result from acute myocardial [...] #### H STRP #### [facility] [address] [place] [address], [address] U WBC 0-2 Normal 0-2 [facility] Comment on above: Order Comment: [place] troponin can result from acute myocardial [...] #### H STRP #### [facility] [address] [place] [address], [address] XR CHEST 1V FRONTALon 2024 XR CHEST [...] Other: . IMPRESSION: No acute radiographic abnormality. Stock Controller: YAIR Transcribe Date/Time: Oct 24 2024 10:21A Dictated by : AFTAB MARTINEZ MD This examination was interpreted and the report reviewed and electronically signed by: AFTAB MARTINEZ MD on Oct 24 2024 10:22AM EST [id number] Normal [facility] XR CHEST AP OR PA [...] or mild edema. MACRO: None Normal [facility] XR Chest Single viewon 10-24 EXAMINATION: [...] atypical/viral pneumonia or mild edema. MACRO: None [facility] observation (narrative) [facility] XR Chest Single viewOrdered By: Hilda De León on 10-24-2024 [facility] Work Phone: [phone] 09-12-2024 [id number] HNO ID: [id number] Author: VARUN PRATT, PT Service: ? Author Type: Physical Therapist Type: [id number] Filed: 09/12/2024 12:56 Note Text: [facility] Physical Therapy Plan of Care Certification Patient Name: Elis Bills : 1960 [facility] #: [id number] Date: 09/12/2024 To: Lois Kee MD From [...] Goals for Episode of Care: established 09/12/24 [place] in home exercise program. Restore pain-free lumbar [...] Planned: 4 Planned Treatment Interventions: Therapeutic exercise (73731), Neuromuscular re-education (96370), Manual therapy (92802), Therapeutic activities (30785), Self-skilled nursing management (37624), Patient/Family/Caregi sudhakar Education, Body Mechanics Training PLAN [...] the treatment plan for Elis Tim Bills, [facility]# [id number] for the period of 09/12/24 -- 10/17/24, established on 09/12/2024. Signature certifies the need for therapy services. Normal [facility] CNTHERAPYon 09-12-2024 CNTHERAPY OT/PT/Speech Visit (PTWS) ELIS BILLS ([id number]) 1960 M Date Time Provider Department 09/12/24 8:30 AM VARUN PRATT PTWS Date Time Provider Department Center 09/12/2024 8:30 AM [id number], COLIN PTWS Mila Sanchez Reason for Visit: [...] Take 2.5 mg by mouth once daily. Furnace Utility Operator: Addendum Therapy (PT/OT/Speech/Resp) ID: [id number] 09/12/2024 9:11 AM Author: VARUN PRATT Signed by VARUN PRATT PT on 09/12/2024 at 9:11 AM * * * This document replaces document [id number] * * * Document text: Program_ID:[id number] Access Code: [email or web address] URL: [email or web address] Date: 09-12-2024 Prepared By: Varun Pratt Program [...] 10 reps - Seated Flexion Stretch with Chinese Ball - 2 x daily - 7 x weekly - 2 sets - 10 reps - Seated Thoracic Flexion and Rotation with Chinese Ball - 2 x daily - 7 x weekly - 2 sets - 10 reps ----- Normal [facility] THERAPY NTon 09-12-2024 THERAPY NT HNO ID: [id number] Author: VARUN PRATT PT Service: ? Author Type: Physical Therapist Type: Therapy (PT/OT/Speech/Resp) Filed: 09/12/2024 09:11 Note Text: Program_ID:[id number] Access Code: [email or web address] URL: [email or web address] Date: 09-12-2024 Prepared By: Varun Pratt Program [...] 10 reps - Seated Flexion Stretch with Chinese Ball - 2 x daily - 7 x weekly - 2 sets - 10 reps - Seated Thoracic Flexion and Rotation with Chinese Ball - 2 x daily - 7 x weekly - 2 sets - 10 reps Normal [facility] CNPNon 09-05-2024 CNPN Telephone (NEAGCLM) ELIS BILLS ([id number]) 1960 M Date Time Provider Department 09/05/24 [...] Encounter Status:Closed by [place] on 09/05/24 [facility] Donna 08-28-2024 JELENA Telephone (NEAGCLM) ELIS BILLS ([id number]) 1960 M Date Time Provider Department 08/28/24 LOIS KEEAGCLM During your visit today, we recorded the following information about you: Puma Nicolas MA 08/28/2024 2:37 PM Signed Referral placed for physical therapy in the [facility] Internal Referral Portal. Confirmation # [id number] Puma Nicolas Ma Allergies As of Date: [...] by PUMA NICOLAS MA on 08/28/24 Normal [facility] CNOVon 08-10-2024 CNOV Office Visit (NEAGCLM) ELIS BILLS ([id number]) 1960 M Date Time Provider Department 08/10/24 1:00 PM LOIS KEE NEAGCLM During your visit today, we recorded the following information about you: Pulse Blood pressure Weight Height 63/minute 170/90 116.8 kg 1.753 m Lois Kee MD 08/10/2024 1:30 PM Signed NEUROSURGERY POST-OP NOTE Lois Kee MD [facility] Date of visit: August 10, 2024 Patient Name: Mr.Donald Tim Bills Date of : 1960 Current Age: [age] year old Sex: male MRN/E# [id number] Last Office Visit: 08/02/2024 SURGERY: L1 decompression [...] Strength Exam (more content not included)... Normal [facility] Basic metabolic 2000 panelon 07-29-2024 Anion gap [Moles/Vol] 10 mmol/L Normal 8-15 [facility] Comment on above: Order Comment: Speci men Type: BLOOD SPECIMENOrdering Facility: [facility] Address: [address] [place] [address] Performed By: #### 2 692-2, 61350-8 ####[facility] LABORATORYCLIA [id number] [place] [address] [place] Calcium [Mass/Vol] 8.6 mg/dL Normal 8.5-10.2 [facility] Comment on above: Order Comment: Speci men Type: BLOOD SPECIMENOrdering Facility: [facility] Address: [address] [place] [address] Performed By: #### 2 692-2, 39805-4 ####[facility] LABORATORYCLIA [id number] [place] [address] [place] Chloride [Moles/Vol] 86 mmol/L Low 98-107 [facility] Comment on above: Order Comment: Speci men Type: BLOOD SPECIMENOrdering Facility: [facility] Address: [address] [place] [address] Performed By: #### 2 692-2, 73036-8 ####[facility] LABORATORYCLIA [id number] [address] CO2 [Moles/Vol] 25 mmol/L Normal 22-30 [facility] Comment on above: Order Comment: Speci men Type: BLOOD SPECIMENOrdering Facility: [facility] Address: [address] [place] [address] Performed By: #### 2 692-2, 76214-0 ####[facility] [id number] [address] Creatinine [Mass/Vol] 0.98 mg/dL Normal 0.73-1.22 [facility] Comment on above: Order Comment: Speci men Type: BLOOD SPECIMENOrdering Facility: [facility] Address: [address] [place] [address] Performed By: #### 2 692-2, 35955-5 ####[facility]ENTERCLIA [id number] [address] Creatinine and Glomerular filtration rate.predicted panel (S/P/Bld) 86 mL/min/1.73m??? Normal >=60 [facility] Comment on above: Order Comment: Speci men Type: BLOOD SPECIMENOrdering Facility: [facility] Address: [address] [place] [address] Result Comment: Lala mated Glomerular Filtration Rate [...] actual GFR. Performed By: #### 2 692-2, 46442-7 ####[facility] LABORATORYCLIA [id number] [place] [address] [place] Glucose [Mass/Vol] 113 mg/dL High 74-99 [facility] Comment on above: Order Comment: Wilbert torres Type: BLOOD SPECIMENOrdering Facility: [facility] Address: [address] [place] [address] Result Comment: The [place] Diabetes Association (ADA) provides guidance for cutoff [...] Standards of Medical Care in Diabetes 2016, [place] Diabetes Association. Diabetes Care. 2016.39(Suppl 1). Performed By: #### 2 692-2, 32125-8 ####[facility] LABORATORYCLIA [id number] [place] [address] [place] Potassium [Moles/Vol] 5.3 mmol/L High 3.7-5.1 [facility] Comment on above: Order Comment: Wilbert torres Type: BLOOD SPECIMENOrdering Facility: [facility] Address: [address] [place] [address] Performed By: #### 2 692-2, 34285-6 ####[facility] LABORATORYCLIA [id number] [place] [address] [place] Sodium [Moles/Vol] 121 mmol/L Low 136-144 [facility] Comment on above: Order Comment: Wilbert torres Type: BLOOD SPECIMENOrdering Facility: [facility] Address: [address] [place] [address] Performed By: #### 2 692-2, 28254-3 ####[facility] LABORATORYCLIA [id number] [place] [address] [place] Urea nitrogen [Mass/Vol] 11 mg/dL Normal 9-24 [facility] Comment on above: Order Comment: Speci men Type: BLOOD SPECIMENOrdering Facility: [facility] Address: [facility] [place] [id number] Performed By: #### 2 692-2, 41317-2 ####[facility] LABORATORYCLIA [id number] [place] [address] [facility] CASE MANAGEMon 07-29-2024 CASE MANAGEM HNO ID: [id number] Author: AUSTIN WALLACE RN Service: ? Author [...] the process utilized to ensure compliance with [facility] policy regarding Inpatient Admission and Observation Services. [...] order as documented evidence of concurrence. Normal [facility] CBC panel Auto (Bld)on 07-29 Erythrocyte distribution width (RBC) [Ratio] 13.4 % Normal 11.5-15.0 [facility] Comment on above: Order Comment: Speci men Type: BLOOD SPECIMENOrdering Facility: [facility] Address: [address] [place] [address] Performed By: #### 3 2355-0 #### [facility] CLIA [id number] [address] OF [facility] Hematocrit (Bld) [Volume fraction] 38.0 % Low 39.0-51.0 [facility] Comment on above: Order Comment: Speci men Type: BLOOD SPECIMENOrdering Facility: [facility] Address: [address] [place] [address] Performed By: #### 3 2355-0 #### [facility] CLIA [id number] [address] OF [facility] Hemoglobin (Bld) [Mass/Vol] 12.7 g/dL Low 13.0-17.0 [facility] Comment on above: Order Comment: Speci men Type: BLOOD SPECIMENOrdering Facility: [facility] Address: [address] [place] [address] Performed By: #### 3 2355-0 #### [facility] CLIA [id number] [address] STATES [facility] MCH (RBC) [Entitic mass] 28.8 pg Normal 26.0-34.0 [facility] Comment on above: Order Comment: Speci men Type: BLOOD SPECIMENOrdering Facility: [facility] Address: [address] [place] [address] Performed By: #### 3 2355-0 #### [facility] CLIA [id number] [address] MCHC (RBC) [Mass/Vol] 33.4 g/dL Normal 30.5-36.0 [facility] Comment on above: Order Comment: Speci men Type: BLOOD SPECIMENOrdering Facility: [facility] Address: [address] [place] [address] Performed By: #### 3 2355-0 #### [facility] CLIA [id number] [address] MCV (RBC) [Entitic vol] 86.2 fL Normal 80.0-100.0 [facility] Comment on above: Order Comment: Speci men Type: BLOOD SPECIMENOrdering Facility: [facility] Address: [address] [place] [address] Performed By: #### 3 2355-0 #### [facility] CLIA [id number] [address] Nucleated RBC (Bld) [#/Vol] 10*3/uL Normal <0.01 [facility] Comment on above: Order Comment: Speci men Type: BLOOD SPECIMENOrdering Facility: [facility] Address: [facility] [place] [address] Performed By: #### 3 2355-0 #### [facility] CLIA [id number] [address] [place] Platelet mean volume (Bld) [Entitic vol] 9.3 fL Normal 9.0-12.7 [facility] Comment on above: Order Comment: Speci men Type: BLOOD SPECIMENOrdering Facility: [facility] Address: [address] [place] [address] Performed By: #### 3 2355-0 #### [facility] CLIA [id number] [address] Platelets (Bld) [#/Vol] 296 10*3/uL Normal 150-400 [facility] Comment on above: Order Comment: Speci men Type: BLOOD SPECIMENOrdering Facility: [facility] Address: [facility] [place] [address] Performed By: #### 3 2355-0 #### [facility] CLIA [id number] [address] [place] RBC (Bld) [#/Vol] 4.41 10*6/uL Normal 4.20-6.00 [facility] Comment on above: Order Comment: Karthikeyanoswaldo torres Type: BLOOD SPECIMENOrdering Facility: [facility] Address: [address] [place] [address] Performed By: #### 3 2355-0 #### [facility] CLIA [id number] [address] WBC (Bld) [#/Vol] 12.07 10*3/uL High 3.70-11.00 [facility] Comment on above: Order Comment: Wilbert torres Type: BLOOD SPECIMENOrdering Facility: [facility] Address: [address] [place] [address] Performed By: #### 3 2355-0 #### [facility] CLIA [id number] [address] CNDSon 07-29-2024 [facility] HNO ID: [id number] Author: ISABELLA SANTACRUZ PA-C Service: Neurosurgery Author Type: Physician Transmissions Systems Operator Type: Discharge Summary Filed: 07/29/2024 15:16 [...] 160-9-4.8 mcg/actuation HFA aerosol inhaler Generic drug: nupxdkfzui-iexuxlge-b ormoterol budesonide 0.5 mg/2 mL nebulizer solution Commonly known as: PULMICORT Use 2 mL via nebulizer two times a day. lisinopril 2.5 mg tablet montelukast 10 mg tablet Commonly known as: SINGULAIR Take 1 tablet by mouth daily at bedtime. nicotine polacrilex 4 mg gum Commonly known as: NICORETTE Take 1 Each by mouth as needed. omeprazo (more content not included)... Normal [facility] CONSULTon 07-29-2024 CONSULT HNO ID: [id number] Author: RADHA LUO MD Service: Nephrology Author [...] S2 Lungs (more content not included)... Normal [facility] CONSULT PROGon 07-29-2024 CONSULT PROG HNO ID: [id number] Author: OBIE CHANG DO Service: Hospital Medicine Author Type: Physician Type: Consult Progress Note Filed: 07/29/2024 11:02 Note Text: DEPARTMENT OF HOSPITAL MEDICINE CONSULT PROGRESS NOTE SERVICE DATE: 07/29/2024 SERVICE TIME: 10:52 AM Primary Care Physician: Pilar Steele, DO NIGHT AND WEEKEND COVERAGE: [place] COVERAGE: After 7pm, please call cross cover pager #[phone] Subjective INTERVAL HPI: 64-year-old male with past [...] and Airways Line Duration Peripheral 07/28/24 0931 [facility] Short Right Hand 18 Gauge 1 day [...] July 29, 2024 TIME: 10:52 AM etx [id number] Normal [facility] Osmolality SerPlon 5 Osmolality [Osmolality] 270 mosm/kg Low 275-300 [facility] Comment on above: Order Comment: Speci men Type: BLOOD SPECIMENOrdering Facility: [facility] Address: [address] [place] [address] Performed By: #### 2 692-2, 68465-8 ####[facility]ORATORYCLIA [id number] [place] [address] [place] Osmolality Uron 07-29-2024 Osmolality (U) [Osmolality] 368 mosm/kg Normal 50-1200 [facility] Comment on above: Order Comment: Speci men Type: URINE SPECIMENOrdering Facility: [facility] Address: [address] [place] [address] Performed By: #### 6 00-7 #### [facility] CLIA [id number] 1 [place] [address] [place] Sodium ?Tm Ur-sCncon 025 Sodium Unsp time (U) [Moles/Vol] <20 Normal 14-216 [facility] Comment on above: Order Comment: Speci men Type: URINE SPECIMENOrdering Facility: [facility] Address: [address] [place] [address] Performed By: #### 6 00-7 #### [facility] CLIA [id number] 1 [place] [address] [place] Sodium SerPl-sCncon 07-29-19 25 Sodium [Moles/Vol] 128 mmol/L Low 136-144 [facility] Comment on above: Order Comment: Speci men Type: BLOOD SPECIMENOrdering Facility: [facility] Address: [address] [place] [address] Performed By: #### 6 00-7 #### [facility] [facility] CLIA [id number] [address] Sodium [Moles/Vol] 129 mmol/L Low 136-144 [facility] Comment on above: Order Comment: Speci men Type: BLOOD SPECIMENOrdering Facility: [facility] Address: [address] [place] [address] Performed By: #### 2 951-2 ####[facility] LABORATORYCLIA [id number] [address] Sodium [Moles/Vol] 125 mmol/L Low 136-144 [facility] Comment on above: Order Comment: Speci men Type: BLOOD SPECIMENOrdering Facility: [facility] Address: [address] [place] [address] Performed By: #### 2 951-2 ####[facility] LABORATORYCLIA [id number] [address] THERAPY NTon 07-29-2024 THERAPY NT HNO ID: [id number] Author: FLORENCE ALEXANDRE OTR/L Service: Occupational Therapy Author Type: Occupational Therapist Type: Therapy (PT/OT/Speech/Resp) Filed: 07/29/2024 11:40 Note Text: Occupational Therapy Evaluation Summary SERVICE DATE: 07/29/2024 SERVICE TIME: 0949 to 1004 ROOM: [place] [address] OT 6 Clicks Score: 21 DISCHARGE RECOMMENDATIONS [...] FUNCTIONAL LEVEL Within Functional Limits 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] July 29, 2024 TIME: 11:39 AM Normal [facility] THERAPY NT HNO ID: [id number] Author: ANDREA PISANO, PT Service: Physical Therapy Author Type: Physical Therapist Type: Therapy (PT/OT/Speech/Resp) Filed: 07/29/2024 09:17 Note Text: Physical Therapy Evaluation Summary SERVICE DATE: 07/29/2024 SERVICE TIME: 814 ROOM: [id number] PT 6 Clicks Score: 21 DISCHARGE RECOMMENDATIONS [...] FUNCTIONAL LEVEL Within Functional Limits 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, 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, 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 SUBJECTIVE Patient pleasant and agreeable to PT session THERAPY DIAGNOSIS Muscle Weakness (generalized), General symptoms and signs-other TREATMENT INTERVENTIONS Evaluation, Therapeutic Activity (07758) $ Evaluation-Moderate (80517) Billed Units: 1 unit Therapeutic Activity (14846) Treatment Minutes: 9 $ Therapeutic Activity (15109) Billed Units: 1 unit Educated patient on [...] July 29, 2024 TIME: 9:14 AM Normal [facility] ANES POSTPROC EVALon 025 ANES POSTPROC EVAL HNO ID: [id number] Author: PAOLA REYES MD Service: Anesthesiology Author Type: Anesthesiologist Type: Anesthesia Postprocedure Evaluation Filed: 07/28/2024 16:23 Note Text: POST ANESTHESIA EVALUATION NOTE : 1960 Procedure Summary Date: 07/28/24 Room / Location: [facility] OR Anesthesia Start: 1155 Anesthesia Stop: [...] July 28, 2024 TIME: 3:18 PM CSN: [id number] [facility] ANES PRE-OPon 07-28-2024 ANES PRE-OP HNO ID: [id number] Author: PAOLA REYES MD Service: Anesthesiology Author Type: Anesthesiologist Type: Anesthesia Preprocedure Evaluation Filed: 07/28/2024 10:40 Note Text: ANESTHESIOLOGY DAY OF SURGERY NOTE : 1960 Procedure Information Date/Time: 07/28/24 1045 Procedures: DECOMPRESSION LAMINECTOMY LUMBAR POSTERIOR LEVEL 1 (Spine Lumbar) DECOMPRESSION LAMINECTOMY 1ST ADD'L LUMBAR SEGMENT (Spine Lumbar) Location: [facility] OR Surgeons: Lois Kee MD Estimated [...] and consent discussed: yes. Patient / Responsible Constitution Party agrees to proceed: yes Patient / [...] July 28, 2024 TIME: 10:34 AM CSN: [id number] [facility] CONSULTon 07-28-2024 CONSULT HNO ID: [id number] Author: KAYDEN KOHLI MD Service: Hospital Medicine Author Type: Physician Type: Consults Filed: 07/28/2024 19:14 Note Text: DEPARTMENT OF HOSPITAL MEDICINE INITIAL CONSULT SERVICE DATE: 07/28/2024 SERVICE TIME: 7:02 PM Primary Care Physician: Pilar Steele DO NIGHT AND WEEKEND COVERAGE: [place] COVERAGE: From 7am - 7pm, please call team pager After 7pm, please call cross cover pager #[phone] REASON FOR CONSULT: . REQUESTING PHYSICIAN: Dr. [...] patient been tested for COVID-19 outside of [facility]? No PAST MEDICAL HISTORY Diagnosis Date [...] mg OR (more content not included)... Normal [facility] OPERATIVE NOon 07-28-2024 OPERATIVE NO HNO ID: [id number] Author: LOIS KEE MD Service: Neurosurgery Author Type: Physician Type: Operative Report Filed: 08/09/2024 09:06 Note Text: OPERATIVE/PROCEDURE REPORT LOG ID: [id number] SURGERY/PROCEDURE DATE: 07/28/2024 INCISION/PROCEDURE START TIME: 12:43 PM INCISION CLOSE/PROCEDURE END TIME: 2:13 PM SURGEON(S)/PROCEDURAL IST(S) AND HAND ROLLER ENGRAVER(S): Surgeons and Role: * Lois Kee MD - Primary Physician Transmissions Systems Operator: Lisandro Fulton PA-C; Austin Solo PA-C [...] August 09, 2024 TIME: 9:01 AM Normal [facility] XR LUMBAR SPECIFY 1Von 07-28 [...] notes for further details of the procedure. Stock Controller: PSCB Transcribe Date/Time: Aug 01 2024 1:44P Dictated by : CRISTIAN FREITAS MD This examination was interpreted and the report reviewed and electronically signed by: CRISTIAN FREITAS MD on Aug 01 2024 1:47PM EST [id number] Normal [facility] XR VERIFY LEVEL [id number] 07-28-2024 XR VERIFY LEVEL L-SPINE-NB * * [...] by Dr. Kee on 07/28/2024 1:02 PM. Stock Controller: [employer] Transcribe Date/Time: Jul 28 2024 1:02P Dictated by : SUNITA SMITH MD This examination was interpreted and the report reviewed and electronically signed by: SUNITA SMITH MD on Jul 28 2024 1:11PM EST [id number] [facility] 07-27-2024 [facility] Telephone (NEAGCLM) ELIS BILLS ([id number]) 1960 Date Time Provider Department 07/27/24 LOIS KEE NEKRISTY During your visit today, we recorded the following information about you: Stephane Bazan 07/27/2024 9:21 AM Signed Contacted patient to remind them of their arrival time for surgery with Dr. Lois Kee on 07/28/24. Patient is to arrive at [facility] at 8:30am for surgery at 10:30am. Spoke with patient and they are aware of all arrival information. Allergies As of Date: 07/27/2024 Noted Allergy Reaction PENICILLINS 08/27/2014 14 - Other: See Comments Comments: Respiratory distress as a baby DALIRESP (ROFLUMILAST) 07/14/2024 2 - Rash Date Reviewed: 07/14/2024 Reviewed by: Harvey Purvis APRN.CLINICAL ADMINISTRATOR - Fully Assessed Reason for Visit: Preparations [...] Encounter Status:Closed by STEPHANE BAZAN on 07/27/24 [facility] NURSING PROGon 07-27-2024 NURSING PROG HNO ID: [id number] Author: CANDE BEAL APRN.CLINICAL ADMINISTRATOR Service: Anesthesiology Author Type: Nurse Practitioner Type: Nursing Progress Note Filed: 07/27/2024 10:16 Note Text: Abnormal labs from 07/14/24 from PAT appointment reviewed with Dr. Yen, anesthesiologist- Na 127, Cl 90, BUN 4. Okay to proceed with case tomorrow- pt will be evaluated DOS per Dr. Yen. [facility] NURSING PROGon 07-21-2024 NURSING PROG HNO ID: [id number] Author: YASHIRA LEYVA APRN.CLINICAL ADMINISTRATOR Service: ? Author Type: Nurse Practitioner Type: Nursing Progress Note Filed: 07/21/2024 13:39 Note Text: Summary: PAT Pulmonary clearance in Epic 07/21/2023 [facility] CNCOon 07-20-2024 CNCO Letter Text [facility] CNPNon 07-20-2024 CNPN Telephone ([facility]) ELIS BILLS ([id number]) 1960 M Date Time Provider Department 07/20/24 SHELTON AGUILERA [facility] During your visit today, we recorded the following information about you: Dalia Segura 07/20/2024 3:46 PM Signed Type of form: Medical clearance for L2-L4 Laminectomy DOS: 07/28/24 TIMO Form received via fax When form is completed, Fax form to [phone] Form has been forwarded to Physician Mailbox: Dalia Garcia 07/21/2024 12:54 PM Signed Completed/signed form faxed back to Dr. Kee's office. Dalia Segura Allergies As of Date: 07/20/2024 Noted Allergy Reaction PENICILLINS 08/27/2014 14 - Other: See Comments Comments: Respiratory distress as a baby DALIRESP (ROFLUMILAST) 07/14/2024 2 - Rash Date Reviewed: 07/14/2024 Reviewed by: Harvey Purvis APRN.CLINICAL ADMINISTRATOR - Fully Assessed Reason for Visit: Medical [...] Encounter Status:Closed by DALIA SEGURA on 07/21/24 [facility] NURSING PROGon 07-20-2024 NURSING PROG HNO ID: [id number] Author: ARNULFO HERNANDEZ APRN.CLINICAL ADMINISTRATOR Service: General Surgery Author Type: Nurse Practitioner Type: Nursing Progress Note Filed: 07/20/2024 14:46 Note Text: Summary: PAT FELIPE Vizcaino at Dr. Kee's office asking for pulmonary optimization as requested by anesthesia. Normal [facility] Donna 07-17-2024 NABORN Telephone (DARVIN) ELIS BILLS ([id number]) 1960 Date Time Provider Department 07/17/24 POLLY MCFARLANE During your visit today, we recorded the following information about you: Allergies As of Date: 07/17/2024 Noted Allergy Reaction PENICILLINS 08/27/2014 14 - Other: See Comments Comments: Respiratory distress as a baby DALIRESP (ROFLUMILAST) 07/14/2024 2 - Rash Date Reviewed: 07/14/2024 Reviewed by: Harvey Purvis APRN.CLINICAL ADMINISTRATOR - Fully Assessed Prescriptions as of 07/17/2024 [...] Status:Closed by POLLY MCFARLANE on 07/17/24 Normal [facility] NURSING PROGon 07-17-2024 NURSING PROG HNO ID: [id number] Author: POLLY MCFARLANE APRN.CLINICAL ADMINISTRATOR Service: Anesthesiology Author Type: Nurse Practitioner Type: [...] please follow up on pulmonary optimization. Normal [facility] Bacteria Ur Culton Bacteria identified Cx Nom (U) CULTURE, URINE: 10,000-<50,000 CFU/ml Normal Urogenital Mark Normal [facility] Comment on above: Performed By: #### 6 30-4 #### [facility] CLIA [id number] [address] CBC panel Auto (Bld)on 07-14 Erythrocyte distribution width (RBC) [Ratio] 13.7 % Normal 11.5-15.0 [facility] Comment on above: Order Comment: Speci men Type: BLOOD SPECIMENOrdering Facility: [facility] Address: [address] [place] [address] Performed By: #### 5 8410-2 ####[facility] LABORATORYCLIA [id number] [address] Hematocrit (Bld) [Volume fraction] 39.9 % Normal 39.0-51.0 [facility] Comment on above: Order Comment: Speci men Type: BLOOD SPECIMENOrdering Facility: [facility] Address: [address] [place] [address] Performed By: #### 5 8410-2 ####[facility] LABORATORYCLIA [id number] [address] Hemoglobin (Bld) [Mass/Vol] 13.8 g/dL Normal 13.0-17.0 [facility] Comment on above: Order Comment: Speci men Type: BLOOD SPECIMENOrdering Facility: [facility] Address: [address] [place] [address] Performed By: #### 5 8410-2 ####[facility] LABORATORYCLIA [id number] [address] STATES [facility] MCH (RBC) [Entitic mass] 29.7 pg Normal 26.0-34.0 [facility] Comment on above: Order Comment: Speci men Type: BLOOD SPECIMENOrdering Facility: [facility] Address: [address] [place] [address] Performed By: #### 5 8410-2 ####[facility] LABORATORYCLIA [id number] [place] [address] [place] MCHC (RBC) [Mass/Vol] 34.6 g/dL Normal 30.5-36.0 [facility] Comment on above: Order Comment: Speci men Type: BLOOD SPECIMENOrdering Facility: [facility] Address: [address] [place] [address] Performed By: #### 5 8410-2 ####[facility] LABORATORYCLIA [id number] [address] [place] MCV (RBC) [Entitic vol] 85.8 fL Normal 80.0-100.0 [facility] Comment on above: Order Comment: Speci men Type: BLOOD SPECIMENOrdering Facility: [facility] Address: [address] [place] [address] Performed By: #### 5 8410-2 ####[facility] LABORATORYCLIA [id number] [address] STATES OF [facility] Nucleated RBC (Bld) [#/Vol] 10*3/uL Normal <0.01 [facility] Comment on above: Order Comment: Speci men Type: BLOOD SPECIMENOrdering Facility: [facility] Address: [address] [place] [address] Performed By: #### 5 8410-2 ####[facility] LABORATORYCLIA [id number] [address] [place] Platelet mean volume (Bld) [Entitic vol] 9.3 fL Normal 9.0-12.7 [facility] Comment on above: Order Comment: Speci men Type: BLOOD SPECIMENOrdering Facility: [facility] Address: [address] [place] [address] Performed By: #### 5 8410-2 ####[facility] LABORATORYCLIA [id number] [address] [place] Platelets (Bld) [#/Vol] 271 10*3/uL Normal 150-400 [facility] Comment on above: Order Comment: Speci men Type: BLOOD SPECIMENOrdering Facility: [facility] Address: [address] [place] [address] Performed By: #### 5 8410-2 ####[facility] LABORATORYCLIA [id number] [address] OF [facility] RBC (Bld) [#/Vol] 4.65 10*6/uL Normal 4.20-6.00 [facility] Comment on above: Order Comment: Speci men Type: BLOOD SPECIMENOrdering Facility: [facility] Address: [address] [place] [address] Performed By: #### 5 8410-2 ####[facility] LABORATORYCLIA [id number] [address] WBC (Bld) [#/Vol] 7.91 10*3/uL Normal 3.70-11.00 [facility] Comment on above: Order Comment: Speci men Type: BLOOD SPECIMENOrdering Facility: [facility] Address: [address] [place] [address] Performed By: #### 5 8410-2 ####[facility] LABORATORYCLIA [id number] [address] [place] BLOOD TYPEon 024 ABO O Normal [facility] Comment on above: Order Comment: Speci men Type: BLOOD SPECIMEN [facility] Address: [address] [place] [address] Performed By: #### C ONO #### [facility] CLIA [id number] [address] Rh Nom (Bld) Positive Normal [facility] Comment on above: Order Comment: Speci men Type: BLOOD SPECIMEN [facility] Address: [address] [place] [address] Performed By: #### C ONABO #### [facility] CLIA [id number] [address] ABO group Nom (Bld) O [facility] Rh Nom (Bld) Positive [facility] Comprehensive metabolic 2000 panelon 07-14-2024 Albumin [Mass/Vol] 4.2 g/dL Normal 3.9-4.9 [facility] Comment on above: Order Comment: Speci men Type: BLOOD SPECIMENOrdering Facility: [facility] Address: [address] [place] [address] Performed By: #### 6 00-7 #### [facility] CLIA [id number] [address] ALP [Catalytic activity/Vol] 98 U/L Normal 38-113 [facility] Comment on above: Order Comment: Speci men Type: BLOOD SPECIMENOrdering Facility: [facility] Address: [address] [place] [address] Performed By: #### 6 -7 #### [facility] CLIA [id number] [address] ALT With P-5'-P [Catalytic activity/Vol] 24 U/L Normal 10-54 [facility] Comment on above: Order Comment: Speci men Type: BLOOD SPECIMENOrdering Facility: [facility] Address: [address] [place] [address] Performed By: #### 6 00-7 #### [facility] CLIA [id number] [address] Anion gap [Moles/Vol] 12 mmol/L Normal 8-15 [facility] Comment on above: Order Comment: Speci men Type: BLOOD SPECIMENOrdering Facility: [facility] Address: [address] [place] [address] Performed By: #### 6 00-7 #### [facility] CLIA [id number] [address] AST With P-5'-P [Catalytic activity/Vol] 22 U/L Normal 14-40 [facility] Comment on above: Order Comment: Speci men Type: BLOOD SPECIMENOrdering Facility: [facility] Address: [address] [place] [address] Performed By: #### 6 00-7 #### [facility] CLIA [id number] [address] [place] Bilirubin [Mass/Vol] 0.6 mg/dL Normal 0.2-1.3 [facility] Comment on above: Order Comment: Speci men Type: BLOOD SPECIMENOrdering Facility: [facility] Address: [address] [place] [address] Performed By: #### 6 00-7 #### [facility] CLIA [id number] [address] [place] Calcium [Mass/Vol] 9.2 mg/dL Normal 8.5-10.2 [facility] Comment on above: Order Comment: Speci men Type: BLOOD SPECIMENOrdering Facility: [facility] Address: [address] [place] [address] Performed By: #### 6 -7 #### [facility] CLIA [id number] [address] [place] Chloride [Moles/Vol] 90 mmol/L Low 98-107 [facility] Comment on above: Order Comment: Speci men Type: BLOOD SPECIMENOrdering Facility: [facility] Address: [address] [place] [address] Performed By: #### 6 -7 #### [facility] CLIA [id number] [address] [place] CO2 [Moles/Vol] 25 mmol/L Normal 22-30 [facility] Comment on above: Order Comment: Speci men Type: BLOOD SPECIMENOrdering Facility: [facility] Address: [address] [place] [address] Performed By: #### 6 00-7 #### [facility] CLIA [id number] 1 [place] [address] [place] Creatinine [Mass/Vol] 0.80 mg/dL Normal 0.73-1.22 [facility] Comment on above: Order Comment: Speci men Type: BLOOD SPECIMENOrdering Facility: [facility] Address: [address] [place] [address] Performed By: #### 6 00-7 #### [facility] CLIA [id number] 1 [place] [address] [place] Creatinine and Glomerular filtration rate.predicted panel (S/P/Bld) 98 mL/min/1.73m??? Normal >=60 [facility] Comment on above: Order Comment: Wilbert torres Type: BLOOD SPECIMENOrdering Facility: [facility] Address: [address] [place] [address] Result Comment: Lala mated Glomerular Filtration Rate [...] GFR. Performed By: #### 6 00-7 #### [facility] CLIA [id number] 1 [place] [address] [place] Glucose [Mass/Vol] 80 mg/dL Normal 74-99 [facility] Comment on above: Order Comment: Speci brian Type: BLOOD SPECIMENOrdering Facility: [facility] Address: [address] [place] [address] Result Comment: The [place] [employer] Association (ADA) provides guidance for cutoff [...] Standards of Medical Care in Diabetes 2016, [place] [employer]. Diabetes Care. 2016.39(Suppl 1). Performed By: #### 6 00-7 #### [facility] CLIA [id number] 1 [place] [address] [place] Potassium [Moles/Vol] 4.5 mmol/L Normal 3.7-5.1 [facility] Comment on above: Order Comment: Speci men Type: BLOOD SPECIMENOrdering Facility: [facility] Address: [address] [place] [address] Performed By: #### 6 00-7 #### [facility] CLIA [id number] [address] STATES OF [facility] Protein [Mass/Vol] 7.1 g/dL Normal 6.3-8.0 [facility] Comment on above: Order Comment: Speci men Type: BLOOD SPECIMENOrdering Facility: [facility] Address: [address] [place] [address] Performed By: #### 6 00-7 #### [facility] CLIA [id number] [address] STATES OF [facility] Sodium [Moles/Vol] 127 mmol/L Low 136-144 [facility] Comment on above: Order Comment: Speci men Type: BLOOD SPECIMENOrdering Facility: [facility] Address: [address] [place] [address] Performed By: #### 6 00-7 #### [facility] CLIA [id number] [address] [place] Urea nitrogen [Mass/Vol] 4 mg/dL Low 9-24 [facility] Comment on above: Order Comment: Speci men Type: BLOOD SPECIMENOrdering Facility: [facility] Address: [address] [place] [address] Performed By: #### 6 00-7 #### [facility] CLIA [id number] [address] [place] ECG COMPLETEon 07-14-2024 ECG COMPLETE Ventricular Rate : 6 7 BPM Atrial Rate : 67 BPM P-R Interval : 146 ms QRS Duration : 122 ms Q-T Interval : 440 ms QTC Calculation(Bazett) : 464 ms Calculated P Grady : -5 degrees Calculated R Grady : 64 degrees Calculated T Grady : 30 degrees NORMAL SINUS RHYTHM RIGHT BUNDLE BRANCH BLOCK ABNORMAL ECG WHEN COMPARED WITH ECG OF 01-Dec-2023 09:50, PREMATURE SUPRAVENTRICULAR COMPLEXES ARE NO LONGER PRESENT Confirmed by MD SONDRA, ZENAB ([id number]) on 07/18/2024 3:09:52 PM NAME : ELIS BILLS PID : [id number] : 1960 Gender : Male Race : ORD : [id number] Procedure Date : Jul 14 2024 13:13:32 Edit Date : Jul 18 2024 15:09:55 Diagnosis: NORMAL SINUS RHYTHM RIGHT BUNDLE BRANCH BLOCK ABNORMAL ECG WHEN COMPARED WITH ECG OF 01-Dec-2023 09:50, PREMATURE SUPRAVENTRICULAR COMPLEXES ARE NO LONGER PRESENT Confirmed by MD AMARO ZENAB ([id number]) on 07/18/2024 3:09:52 PM Test Reason : HCS Location : 147 : HWwT Overread By : MD AMARO ZENAB Edited By : MD AMARO ZENAB Referred By : Viktor Acquired by : HARVEY PURVIS [facility] HISTORY PHYSICALon HISTORY PHYSICAL HNO ID: [id number] Author: HARVEY PURVIS APRN.CLINICAL ADMINISTRATOR Service: ? Author Type: Nurse Practitioner Type: [...] at this time: primary care/internal medicine (in [facility]). Planned Anesthetic: general The Following Tests/Procedures Have Been Initiated: Orders Placed This Encounter Confirm Blood Type Standing Status: Future Number of Occurrences: 1 Standing Expiration Date: 10/13/2024 Order Specific Question: Did Blood Bank direct you to place this order: Answer: No - [employer] [employer] 160-9-4.8 mcg/actuation HFA aerosol inhaler Sig: INHALE [...] and tobacc (more content not included)... Normal [facility] PT panel Coag (PPP)on 2023 INR Coag (PPP) [Relative time] 1.0 {INR} Normal 0.9-1.3 [facility] Comment on above: Order Comment: Speci men Type: BLOOD SPECIMENOrdering Facility: [facility] Address: [address] [place] [address] Result Comment: Malini min K Antagonist (VKA) Therapeutic Range: INR 2 to 3 (Target INR of 2.5) Note: For patients treated with VKA drugs, such as warfarin, the [place] [employer] 2012 Guideline recommends [...] Chest 2012, 141:7S-47S Deon PUTNAM et al. [facility] 2017, 70: 252-289 Performed By: #### 3 4528-0, 12496-6 ####[facility] LABCLIA [id number] [place] [address] [place] PT Coag (PPP) [Time] 10.4 s Normal <13.1 [facility] Comment on above: Order Comment: Speci men Type: BLOOD SPECIMENOrdering Facility: [facility] Address: [address] [place] [address] Performed By: #### 3 4528-0, 16290-0 ####[facility] LABCLIA [id number] [place] [address] [facility] [place] STAPHYLOCOCCUS AUREUS AND MR SA SCREEN, PCR, NASALon 07-14-2024 S. aureus and MRSA panel YADIRA+probe (Nose) Not detected Normal Not Detected [facility] Comment on above: Order Comment: Speci men Type: SWABOrdering Facility: [facility] Address: [address] [place] [address] Performed By: #### S APCR ####[facility]ORATORYCLIA [id number] [address] OF [facility] TYPE AND SCREEN,30 DAYon ABO O Normal [facility] Comment on above: Order Comment: Speci men Type: BLOOD SPECIMEN [facility] Address: [address] [place] [address] Performed By: #### T SCR30 #### [facility] CLIA [id number] [address] OF [facility] Rh Nom (Bld) Positive Normal [facility] Comment on above: Order Comment: Speci men Type: BLOOD SPECIMEN [facility] Address: [address] [place] [address] Performed By: #### T SCR30 #### [facility] CLIA [id number] [address] Urinalysis complete panel (U )on 07-14-2024 Bilirubin Ql (U) Negative Normal Negative [facility] Comment on above: Order Comment: Speci men Type: URINE SPECIMENOrdering Facility: [facility] Address: [address] [place] [address] Performed By: #### 2 4356-8 ####[facility] LABORATORYCLIA [id number] [address] [place] Clarity (Unsp spec) Clear Normal Clear [facility] Comment on above: Order Comment: Speci men Type: URINE SPECIMENOrdering Facility: [facility] Address: [address] [place] [address] Performed By: #### 2 4356-8 ####[facility]ATORYCLIA [id number] [address] [place] Color (U) Colorless Normal yellow [facility] Comment on above: Order Comment: Speci men Type: URINE SPECIMENOrdering Facility: [facility] Address: [address] [place] [address] Performed By: #### 2 4356-8 ####[facility]ORATORYCLIA [id number] [address] [place] Glucose Test strip (U) [Mass/Vol] Negative Normal Trace, Negative [facility] Comment on above: Order Comment: Speci men Type: URINE SPECIMENOrdering Facility: [facility] Address: [address] [place] [address] Performed By: #### 2 4356-8 ####[facility] LABORATORYCLIA [id number] [place] [address] [place] Hemoglobin Ql (U) Negative Normal Negative, Trace [facility] Comment on above: Order Comment: Speci men Type: URINE SPECIMENOrdering Facility: [facility] Address: [address] [place] [address] Performed By: #### 2 4356-8 ####[facility]ATORYCLIA [id number] [address] [place] Ketones Ql (U) Negative Normal Negative, Trace [facility] Comment on above: Order Comment: Speci men Type: URINE SPECIMENOrdering Facility: [facility] Address: [address] [place] [address] Performed By: #### 2 4356-8 ####[facility] LABORATORYCLIA [id number] [address] Leukocyte esterase Test strip Ql (U) Negative Normal Negative, 25 Seun/uL [facility] Comment on above: Order Comment: Speci men Type: URINE SPECIMENOrdering Facility: [facility] Address: [address] [place] [address] Performed By: #### 2 4356-8 ####[facility] LABORATORYCLIA [id number] [address] [place] Nitrite Ql (U) Negative Normal Negative [facility] Comment on above: Order Comment: Speci men Type: URINE SPECIMENOrdering Facility: [facility] Address: [address] [place] [address] Performed By: #### 2 4356-8 ####[facility] LABORATORYCLIA [id number] [address] [place] pH (U) 6.5 [pH] Normal 5.0-8.0 [facility] Comment on above: Order Comment: Speci men Type: URINE SPECIMENOrdering Facility: [facility] Address: [address] [place] [address] Performed By: #### 2 4356-8 ####[facility] LABORATORYCLIA [id number] [address] Protein (U) [Mass/Vol] Negative Normal Trace, Negative [facility] Comment on above: Order Comment: Speci men Type: URINE SPECIMENOrdering Facility: [facility] Address: [address] [place] [address] Performed By: #### 2 4356-8 ####[facility] LABORATORYCLIA [id number] [address] RBC LM.HPF (Urine sed) [#/Area] 0-3 /HPF Normal 0-3 /HPF [facility] Comment on above: Order Comment: Speci men Type: URINE SPECIMENOrdering Facility: [facility] Address: [address] [place] [address] Performed By: #### 2 4356-8 ####[facility] LABORATORYCLIA [id number] [address] Specific gravity (U) [Rel density] 1.004 Low 1.005-1.030 [facility] Comment on above: Order Comment: Speci men Type: URINE SPECIMENOrdering Facility: [facility] Address: [address] [place] [address] Performed By: #### 2 4356-8 ####[facility] LABORATORYCLIA [id number] [address] Urobilinogen Ql (U) Normal Normal Normal [facility] Comment on above: Order Comment: Speci men Type: URINE SPECIMENOrdering Facility: [facility] Address: [address] [place] [address] Performed By: #### 2 4356-8 ####[facility] [id number] [address] [place] WBC LM.HPF (Urine sed) [#/Area] 0-5 /HPF Normal 0-5 /HPF [facility] Comment on above: Order Comment: Speci men Type: URINE SPECIMENOrdering Facility: [facility] Address: [address] [place] [address] Performed By: #### 2 4356-8 ####[facility] LABORATORYCLIA [id number] [address] [place] XR CHEST 2V FRONTAL/LATon [...] tissues: Unremarkable. IMPRESSION: No acute radiographic abnormality. Stock Controller: YAIR Transcribe Date/Time: Jul 18 2024 4:45P Dictated by : SUNITA SMITH MD This examination was interpreted and the report reviewed and electronically signed by: SUNITA SMITH MD on Jul 18 2024 4:46PM EST [id number] N Normal [facility] aPTT PPPon 07-14-2024 aPTT Coag (PPP) [Time] 26.5 s Normal 23.0-32.4 [facility] Comment on above: Order Comment: Speci men Type: BLOOD SPECIMENOrdering Facility: [facility] Address: [address] [place] [address] Performed By: #### 3 4528-0, 61156-3 ####[facility] LABCLIA [id number] [place] [id number] [facility] CNPKrissy 06-21-2024 CNPN Telephone ([facility]) ELIS BILLS ([id number]) 1960 M Date Time Provider Department 06/21/24 [...] Encounter Status:Closed by STEPHANE BAZAN on 06/21/24 [facility] Donna 06-08-2024 CNPN Telephone ([facility]) ELIS BILLS ([id number]) 1960 M Date Time Provider Department 06/08/24 SHELTON AGUILERA [facility] During your visit today, we recorded the following information about you: Dalia Segura 06/08/2024 12:19 PM Signed Nebulizer orders signed AND faxed back to [facility]. Dalia Segura Allergies As of Date: 06/08/2024 [...] Status:Closed by DALIA SEGURA on 06/08/24 Normal [facility] [address] CHEST WO IVCONon 06-08-20 CT CHEST WO IVCON * * *Final Report* * * DATE OF EXAM: Jun 08 2024 8:30AM [facility] 0541 - CT CHEST WO IVCON [...] fellow represents my interpretation of the study. Stock Controller: YAIR Transcribe Date/Time: Jun 08 2024 1:33P Dictated by : TAMEKA PIKE, DO This examination was interpreted and the report reviewed and electronically signed by: JAYMIE VALLEJO MD on Jun 08 2024 2:39PM EST [id number] N Normal [facility] CT Chest WO contraston 06-08 IMPRESSION: Multiple tiny 2-3 millimeter pulmonary nodules are present, overall decreased in conspicuity and size from the prior, likely resolving infectious/inflammato ry process. Recommend continued attention on follow-up in 6-12 months. I agree that this report by the resident or fellow represents my interpretation of the study. Stock Controller: YAIR Transcribe Date/Time: Jun 08 2024 1:33P Dictated by : TAMEKA PIKE DO This examination was interpreted and the report reviewed and electronically signed by: JAYMIE VALLEJO MD on Jun 08 2024 2:39PM [facility] DIVISION OF RADIOLOGY * * *Final Report* * * DATE OF EXAM: Jun 08 2024 8:30AM [facility] 0541 - CT CHEST WO IVCON [...] Bilateral hip arthroplasties. DIVISION OF RADIOLOGY Provider, [facility] - 06/08/2024 * * *Final Report* * * DATE OF EXAM: Jun 08 2024 8:30AM [facility] 0541 - CT CHEST WO IVCON [...] fellow represents my interpretation of the study. Stock Controller: YAIR Transcribe Date/Time: Jun 08 2024 1:33P Dictated by : TAMEKA PIKE, DO This examination was interpreted and the report reviewed and electronically signed by: JAYMIE VALLEJO MD on Jun 08 2024 2:39PM EST [facility] Radiology Study observation (narrative) [facility] CT Chest WO contrastOrdered By: Ccf Provider on 06-08-2024 [facility] CNOVon 06-05-2024 CNOV Office Visit ([facility]) ELIS BILLS ([id number]) 1960 M Date Time Provider Department 06/05/24 9:15 AM LOIS KEE [facility] During your visit today, we recorded the following information about you: Pulse Respiration Blood pressure Weight 72/minute 20/minute 161/84 129.5 kg Lois Kee MD 06/05/2024 10:19 AM Signed NEUROSURGERY FOLLOW UP OFFICE NOTE Lois Kee MD [facility] Date of visit: June 05, 2024 Patient Name: Mr.Donald Tim Bills Date of : 1960 Current Age: [age] year old Sex: male MRN/E# [id number] Last Office Visit: 04/06/2024 Chief Complaint: Patient [...] Eyes: Neg (more content not included)... Normal [facility] XR LUMBAR 4V AP/LAT/ FLEX/EX [...] anterolisthesis at L5-S1. Degenerative changes as described. Stock Controller: PSCB Transcribe Date/Time: Jun 08 2024 9:34A Dictated by : GOLD LUTHER MD This examination was interpreted and the report reviewed and electronically signed by: GOLD LUTHER MD on Jun 08 2024 9:42AM EST [id number] N [facility] 05-31-2024 [facility] Telephone ([facility]) ELIS BILLS ([id number]) 1960 M Date Time Provider Department 05/31/24 SHELTON AGUILERA [facility] During your visit today, we recorded the following information about you: Dalia Segura 05/31/2024 12:24 PM Signed Nebulizer [facility] Dalia Segura Allergies As of Date: [...] Encounter Status:Closed by DALIA SEGURA on 05/31/24 [facility] Donna 04-27-2024 NABORN Telephone (AGSPHWG) ELIS BILLS ([id number]) 1960 M Date Time Provider Department 04/27/24 [...] Date Reviewed: 04/27/2024 Reviewed by: Bertha Schumacher APRN.CLINICAL ADMINISTRATOR - Fully Assessed Reason for Visit: Appointment [...] Encounter Status:Closed by VIVIAN FRIED on 04/28/24 [facility] CNOVon 04-06-2024 CNOV Office Visit (NEAGCLM) ELIS BILLS ([id number]) 1960 M Date Time Provider Department 04/06/24 9:30 AM LOIS KEE NEAGCLM During your visit today, we recorded the following information about you: Pulse Respiration Blood pressure Weight 74/minute 18/minute 154/89 128.5 kg Height 1.702 m Lois Kee MD 04/06/2024 10:06 AM Signed NEUROSURGERY CONSULT NOTE Lois Kee MD [facility] Date of visit: April 06, 2024 Patient Name: Mr.Donald Tim Bills Date of : 1960 Current Age: [age] year old Sex: male MRN/E# [id number] Last Office Visit: Visit date not found [...] (chronic obstructive pulmonary disease) (HCC) Hypercholesteremia Stroke ([facility]) No past surgical history [...] SpO2 9 (more content not included)... Normal [facility]24 [facility] Telephone (AGSPINE1) ELIS BILLS ([id number]) 1960 Date Time Provider Department 03/31/24 DHIRAJ [...] No 9. Does this procedure require a screw driver operator? Yes If yes, has patient been notified that a screw driver operator is needed and must be present at [...] Date Reviewed: 03/30/2024 Reviewed by: Bertha Schumacher APRN.CLINICAL ADMINISTRATOR - Fully Assessed Reason for Visit: injection [...] Encounter Status:Closed by OZIEL RUBALCAVA on 03/31/24 [facility] 03-30-2024 [facility] Telephone (SPAGWO) ELIS BILLS ([id number]) 1960 M Date Time Provider Department 03/30/24 DHIRAJ HERR SPAToolwiWO During your visit today, we recorded the following information about you: Oziel Rubalcava 03/31/2024 8:20 AM Addendum B/L MBNB L3-L4, L4-L5, w fluoro Called pt to schedule procedure, LVM Oziel Rosio Allergies As of Date: 03/30/2024 Noted Allergy Reaction PENICILLINS 08/27/2014 16 - Unknown Date Reviewed: 03/30/2024 Reviewed by: Bertha Schumacher APRN.CLINICAL ADMINISTRATOR - Fully Assessed Reason for Visit: Appointment [...] Encounter Status:Closed by OZIEL RUBALCAVA on 03/30/24 [facility] 03-17-2024 CNPN Telephone (AGSPHWG) ELIS BILLS ([id number]) 1960 M Date Time Provider Department 03/17/24 [...] Encounter Status:Closed by STEPHAN PACHECO on 03/17/24 [facility] 03-16-2024 NABORN Telephone (SPAGWO) ELIS BILLS ([id number]) 1960 M Date Time Provider Department 03/16/24 BERTHA SCHUMACHER During your visit today, we recorded the following information about you: Bertha Schumacher APRN.CNP 03/16/2024 8:14 AM Signed Could you proof read this please. Thanks. Allergies As of Date: 03/16/2024 Noted Allergy Reaction PENICILLINS 08/27/2014 16 - Unknown Date Reviewed: 02/24/2024 Reviewed by: Bertha Schumacher APRN.[facility] - Fully Assessed Reason for Visit: [...] Encounter Status:Closed by BERTHA SCHUMACHER on 03/16/24 [facility] Donna 03-15-2024 NABORN Telephone (AGSPINE3) ELIS BILLS ([id number]) 1960 M Date Time Provider Department 03/15/24 [...] with this appt. Was Patient Referred to [facility]/Seek Emergency Treatment (Y/N): n Did Patient Agree (Y/N): n Was An Attempt Made To Transfer The Patient To The Office (Y/N): n Were You Able To Reach Someone At The Office (Y/N): n If Yes - Patient Was Transferred To (Caregivers Name): n If No - Which [facility] Leadership Casino Dealer Did You Speak With Regarding This Patient: n Was an appointment scheduled (Y/N): n/a Reason patient was requesting visit (RFV/signs and symptoms/diagnosis) : procedure Person calling if other than patient: Spouse, Mehreen Bills Return call to if other than patient: y Best contact number: [phone] Thank you, Johnny Hdez March 14, 2024 [...] Date Reviewed: 02/24/2024 Reviewed by: Bertha Schumacher APRN.CLINICAL ADMINISTRATOR - Fully Assessed Reason for Visit: Patient Question [9830] Prescriptions as of 03/15/2024 - cyclobenzaprine (FLEXERIL) [...] Encounter Status:Closed by CHANDA ARREGUIN on 03/15/24 [facility] Donna 03-13-2024 [facility] DIMITRIOS BILLSGILBERTO Dumont ([id number]) 1960 M Date Time Provider Department 03/13/24 [...] Information Insurance Name MM Patient's Insurance Case# [id number] Ordering Provider Bertha Schumacher Approved Services N/A Denied Services 60552 - NJX DX/THER SBST INTRLMNR LMBR/SAC W/IMG GDN Alternative Recommendation N/A *Service which can be approved in place of denied service. Clinical Documentation Provided Office Visit 11/11/2023, 09/23/2023 [facility] 02/24/2024, 12/22/2023, 11/25/2023, 10/29/2023 Procedure 12/16/2023, 10/28/2023 CT CHEST WO IVCON 12/29/2023 XR CHEST 1V FRONTAL 12/01/2023 MRI LUMBAR SPINE WO IVCON 11/19/2023 CT CHEST WO IVCON 09/02/2023 Peer to Peer Instructions Peer to Peer , options: 1-2 Does Peer to Peer need to be scheduled? Yes Who can complete the Peer to Peer? Dr, PA, FRESH WORK INSPECTOR, LN Additional Peer to Peer Instructions You can call for the peer to peer at the date and time of your convenience Appeal Instructions Appeal Address [address] [address], [facility], [address] Appeal Fax# No fax# available Required Form(s) Yes, Please see attached or can be found at [email or web address] (Poly Adaptive). Additional Appeal Instructions Send it attention to: Appeals department. Include: coversheet with patient's and case information, a formal appeal letter and attach any pertinent supporting clinical documentation. Also, insurance requires a formal appeal form filled out if you would like to submit a written appeal. Facility Information Location [facility] [id number] Tax ID# [id number] Vivian Fried 03/14/2024 8:34 AM Signed Please advise on how you would like to proceed. Vivian Franco 03/14/2024 3:59 PM Signed I have attempted to contact this patient by phone, Left brief message on cell [employer] informing this patient of this denial and [...] Date Reviewed: 02/24/2024 Reviewed by: Bertha Schumacher APRN.CLINICAL ADMINISTRATOR - Fully Assessed Reason for Visit: Insurance [...] thiamine (VITAMI (more content not included)... Normal [facility] CNCOon 03-01-2024 CNCO Letter Text Normal [facility] CNCOon 02-25-2024 CNCO Letter Text Normal [facility] CNPNon 02-25-2024 CNPN Telephone (AGSPINE3) ELIS BILLS ([id number]) 1960 Date Time Provider Department 02/25/24 EVERTON DECKER AGSPINE3 During your visit today, we recorded the following information about you: Diane Lagos 02/25/2024 11:09 AM Signed The Anticoag Management letter has been sent to the PCP, Pilar Steele DO via facsimile. [phone] Adi Meyer PSS 02/29/2024 3:44 PM Signed Medical consent to stop taking Plavix for [address] Pilar Steele on 02/28/2024. The consent form was received on 02/29/2024 and is scanned into the chart. GOOD UNTIL 08/30/2024 Aid Mascorro [place] to Dr. Britton Burgos [facility] P: [id number] / F: [phone] / __ Diane Lagos 03/01/2024 11:05 AM Signed Called and LVM to schedule injection. Diane Lagos Vivian Fried 03/01/2024 11:55 AM Signed Patient has been scheduled with dr. Decker on 03/16/24. Vivian Fried Allergies As of Date: 02/25/2024 Noted Allergy Reaction PENICILLINS 08/27/2014 16 - Unknown Date Reviewed: 02/24/2024 Reviewed by: Bertha Schumacher APRN.CLINICAL ADMINISTRATOR - Fully Assessed Reason for Visit: anticoagulation [...] Encounter Status:Closed by DIANE LAGOS on 02/25/24 [facility] CNPN Telephone (AGSPHWG) ELIS BILLS ([id number]) 1960 Date Time Provider Department 02/25/24 BERTHA SCHUMACHER AGSPHWG During your visit today, we recorded the following information about you: Rose Leal 02/25/2024 8:17 AM Signed Outbound Call to patient to schedule Injection - Epidural Steroid Injection - Interlaminar Approach (ILESI) under fluoroscopic guidance NONE at L4-5 (Currently Taking: Plavix needs 7 day hold) - Reached [facility] [phone] (cell/home) JASS Block Julie 03/03/2024 7:44 AM Signed Patient is scheduled for procedure and follow up JASS Block Allergies As of Date: 02/25/2024 Noted Allergy Reaction PENICILLINS 08/27/2014 16 - Unknown Date Reviewed: 02/24/2024 Reviewed by: Bertha Schumacher APRN.CLINICAL ADMINISTRATOR - Fully Assessed Reason for Visit: Appointment [...] Encounter Status:Closed by ROSE LEAL on 02/25/24 [facility] CNPN Telephone (AGSPINE3) ELIS BILLS ([id number]) 1960 Date Time Provider Department 02/25/24 EVERTON [...] No 9. Does this procedure require a screw driver operator? Yes If yes, has patient been notified that a screw driver operator is needed and must be present at [...] Date Reviewed: 02/24/2024 Reviewed by: Bertha Schumacher APRN.CLINICAL ADMINISTRATOR - Fully Assessed Reason for Visit: Injections [...] Encounter Status:Closed by DIANE LAGOS on 02/25/24 [facility] Donna 01-17-2024 CNPN Telephone (PUMBHT) ELIS BILLS ([id number]) 1960 Chip Date Time Provider Department 01/17/24 SHELTON AGUILERA During your visit today, we recorded the following information about you: Lindsey Delgado RN 01/17/2024 10:03 AM Signed TIMO: 11/11/2023 Future OV: 02/10/2024 Call transferred to Paterson RN from [address] center. Mehreen, patient's called. Patient name [...] Date Reviewed: 12/21/2023 Reviewed by: Yashira Gonsales APRN.CLINICAL ADMINISTRATOR - Fully Assessed Reason for Visit: Illness [7863] Cmt: Paterson RN covering urgent pulm sypmtom calls Order(s):predniSONE [...] of breath (more content not included)... Normal [facility] 01-03-2024 [facility] Telephone ([facility]) ELIS BILLS ([id number]) 1960 M Date Time Provider Department 01/03/24 ALEN MAYORGA [facility] During your visit today, we recorded [...] was unable to speak with patient. Sent [employer] message regarding message below. Alen Mayorga MD15 [...] Date Reviewed: 12/21/2023 Reviewed by: Yashira Gonsales APRN.CLINICAL ADMINISTRATOR - Fully Assessed Reason for Visit: Results [...] Status:Closed by ALEN MAYORGA on 01/03/[address] [facility] [address] CHEST WO IVCONon 12-29-19 CT CHEST WO IVCON * * *Final Report* * * DATE OF EXAM: Dec 29 2023 11:14AM [facility] 0541 - CT CHEST WO [...] obtained in 12 months --END OF FINDING-- Stock Controller: YAIR Transcribe Date/Time: Jan 03 2024 2:32P Dictated by : FRANCES MILIAN MD This examination was interpreted and the report reviewed and electronically signed by: FRANCES MILIAN MD on Jan 03 2024 2:47PM EST [id number] ACTIONABLE Invalid Interpretation Code [facility] ECHOon 12-29-2023 CONCLUSIONS: - Technically [...] [facility] Echocardiography Report: Transthoracic Echo [facility] Date of service: 12/29/2023 10:25:10 AM Ordering [...] aorta 4.0 cm. [facility] Echocardiography Echocardiography Report: Transthoracic Echo [facility] Date of service: 12/29/2023 10:25:10 AM Ordering physician: SHELTON AGUILERA Indication: Shortness of Breath Technologist: Hannah Elizondo [facility] Interpreting physician: Al Dexter MD [...] * * Final * * * CC [facility] Medical Image : [id number] [facility] CNPNon 12-17-2023 [facility] Telephone (AGSPHWG) ELIS BILLS ([id number]) 1960 M Date Time Provider Department 12/17/23 [...] Encounter Status:Closed by GRETA GUILLEN on 12/17/23 [facility] Donna 12-14-2023 NABORN Telephone (AGSPINE3) ELIS BILLS ([id number]) 1960 M Date Time Provider Department 12/14/23 [...] Information Insurance Name MMO Patient's Insurance Case# [id number] Ordering Provider Bertha Schumacher Approved Services N/A Denied Services 13513 - NJX DX/THER AGT PVRT FACET JT LMBR/SAC 1 LEVEL 97563 - NJX DX/THER AGT PVRT FACET JT LMBR/SAC 2ND LEVEL Alternative Recommendation N/A *Service which can be approved in place of denied service. Clinical Documentation Provided [facility] 11/25/2023, 10/29/2023 FOLLOW UP APPOITNMENT WHEN PROVIDED SPECIFIED 12/02/2023 XR CHEST 1V FRONTAL 12/01/2023 MRI LUMBAR SPINE WO IVCON 11/19/2023 Peer to Peer Instructions Peer to Peer , options: 1-2 Does Peer to Peer need to be scheduled? Yes Who can complete the Peer to Peer? Dr, PA, FRESH WORK INSPECTOR, LN Additional Peer to Peer Instructions You can call for the peer to peer at the date and time of your convenience Appeal Instructions Appeal Address [address] [address], [facility], [address] Appeal Fax# No fax# available Required Form(s) Yes, Please see attached or can be found at [email or web address] (Poly Adaptive). Additional Appeal Instructions Send it attention to: Appeals department. Include: coversheet with patient's and case information, a formal appeal letter and attach any pertinent supporting clinical documentation. Also, insurance requires a formal appeal form filled out if you would like to submit a written appeal. Facility Information Location [facility] [id number] Tax ID# [id number] Vivian Fried 12/15/2023 12:08 PM Signed Please [...] that we are looking for. Bertha Alcantara APRN.CLINICAL ADMINISTRATOR 12/24/2023 3:44 PM Signed I created a [...] available, please see details below: Appeal fax#: [phone] Appeal mailing address: [address] [address], [facility], [address] Time frame limit: 60 calendar days from 01/04/2024 Attention to: Appeals dep (more content not included)... Normal [facility] CBC panel Auto (Bld)on 12-01 Erythrocyte distribution width (RBC) [Ratio] 14.2 % Normal 11.5-15.0 [facility] Comment on above: Order Comment: Speci brian Type: BLOOD SPECIMENOrdering Facility: [facility] Address: [address] [place] [address] Performed By: #### 5 8410-2 ####[facility] LABCLIA [id number] [place] [address] [place] Hematocrit (Bld) [Volume fraction] 41.8 % Normal 39.0-51.0 [facility] Comment on above: Order Comment: Wilbert torres Type: BLOOD SPECIMENOrdering Facility: [facility] Address: [address] [place] [address] Performed By: #### 5 8410-2 ####[facility] LABCLIA [id number] [place] [address] [place] Hemoglobin (Bld) [Mass/Vol] 14.0 g/dL Normal 13.0-17.0 [facility] Comment on above: Order Comment: Wilbert torres Type: BLOOD SPECIMENOrdering Facility: [facility] Address: [address] [place] [address] Performed By: #### 5 8410-2 ####[facility] LABCLIA [id number] [place] [address] [facility] MCH (RBC) [Entitic mass] 29.4 pg Normal 26.0-34.0 [facility] Comment on above: Order Comment: Speci men Type: BLOOD SPECIMENOrdering Facility: [facility] Address: [address] [place] [address] Performed By: #### 5 8410-2 ####[facility] LABCLIA [id number] [place] [address] [place] MCHC (RBC) [Mass/Vol] 33.5 g/dL Normal 30.5-36.0 [facility] Comment on above: Order Comment: Speci men Type: BLOOD SPECIMENOrdering Facility: [facility] Address: [address] [place] [address] Performed By: #### 5 8410-2 ####[facility] LABCLIA [id number] [place] [address] [facility] [place] MCV (RBC) [Entitic vol] 87.8 fL Normal 80.0-100.0 [facility] Comment on above: Order Comment: Speci men Type: BLOOD SPECIMENOrdering Facility: [facility] Address: [address] [place] [address] Performed By: #### 5 8410-2 ####[facility] LABCLIA [id number] [place] [address] [place] Platelet mean volume (Bld) [Entitic vol] 9.1 fL Normal 9.0-12.7 [facility] Comment on above: Order Comment: Speci men Type: BLOOD SPECIMENOrdering Facility: [facility] Address: [address] [place] [address] Performed By: #### 5 8410-2 ####[facility] LABCLIA [id number] [place] [address] [facility] Platelets (Bld) [#/Vol] 298 10*3/uL Normal 150-400 [facility] Comment on above: Order Comment: Speci men Type: BLOOD SPECIMENOrdering Facility: [facility] Address: [address] [id number] Performed By: #### 5 8410-2 ####[facility] LABCLIA [id number] [place] [address] [facility] RBC (Bld) [#/Vol] 4.76 10*6/uL Normal 4.20-6.00 [facility] Comment on above: Order Comment: Speci men Type: BLOOD SPECIMENOrdering Facility: [facility] Address: [address] [place], [place] [address] Performed By: #### 5 8410-2 ####[facility] LABCLIA [id number] [place] [address] [facility] WBC (Bld) [#/Vol] 7.31 10*3/uL Normal 3.70-11.00 [facility] Comment on above: Order Comment: Wilbert torres Type: BLOOD SPECIMENOrdering Facility: [facility] Address: [address] [place], [place] [address] Performed By: #### 5 8410-2 ####[facility] LABCLIA [id number] [place] [address] [facility] CNDSon 12-02-2023 CNDS HNO ID: [id number] Author: ALBERTINA DAVILA APRN.CLINICAL ADMINISTRATOR Service: Hospital Medicine Author Type: Nurse Practitioner Type: Discharge Summary Filed: 12/02/2023 11:00 Note Text: Attestation signed by Ji Fonseca MD at 12/10/2023 9:28 PM [facility] STAFF PHYSICIAN NOTE OF PERSONAL INVOLVEMENT IN [...] exacerbation (HCC) (POA: Yes) Ji [facility]seca MD, [facility] Staff,Dept of Hospital Medicine December 10, [...] 12 hours. He reports he saw his vehicle monitor technician on 11/11/23 who ordered two new inhalers. [...] agreeable to observation overnight, but only at [facility]. Patient was admitted for further management. - [...] were finalized. [facility] and report the results to his PCP. Extreme education provided to patient on ETOH cessation and smoking cessation. Patient instructed on Fluid restriction of 1800mL daily (more content not included)... Normal [facility] Comprehensive metabolic 2000 panelon 12-02-2023 Albumin [Mass/Vol] 4.4 g/dL Normal 3.9-4.9 [facility] Comment on above: Order Comment: Speci men Type: BLOOD SPECIMENOrdering Facility: [facility] Address: [address] [place] [address] Performed By: #### 6 00-7 #### [facility] CLIA [id number] [address] OF [facility] ALP [Catalytic activity/Vol] 99 U/L Normal 38-113 [facility] Comment on above: Order Comment: Speci men Type: BLOOD SPECIMENOrdering Facility: [facility] Address: [address] [place] [address] Performed By: #### 6 00-7 #### [facility] CLIA [id number] [address] OF [facility] ALT With P-5'-P [Catalytic activity/Vol] 22 U/L Normal 10-54 [facility] Comment on above: Order Comment: Speci men Type: BLOOD SPECIMENOrdering Facility: [facility] Address: [address] [place] [address] Performed By: #### 6 00-7 #### [facility] CLIA [id number] [address] STATES OF [facility] Anion gap [Moles/Vol] 12 mmol/L Normal 9-18 [facility] Comment on above: Order Comment: Speci men Type: BLOOD SPECIMENOrdering Facility: [facility] Address: [address] [place] [address] Performed By: #### 6 00-7 #### [facility] CLIA [id number] [address] [place] AST With P-5'-P [Catalytic activity/Vol] 19 U/L Normal 14-40 [facility] Comment on above: Order Comment: Speci men Type: BLOOD SPECIMENOrdering Facility: [facility] Address: [address] [place] [address] Performed By: #### 6 -7 #### [facility] CLIA [id number] [address] [place] Bilirubin [Mass/Vol] 0.5 mg/dL Normal 0.2-1.3 [facility] Comment on above: Order Comment: Speci men Type: BLOOD SPECIMENOrdering Facility: [facility] Address: [address] [place] [address] Performed By: #### 6 00-7 #### [facility] CLIA [id number] [address] [place] [address] [place] Calcium [Mass/Vol] 9.7 mg/dL Normal 8.5-10.2 [facility] Comment on above: Order Comment: Speci men Type: BLOOD SPECIMENOrdering Facility: [facility] Address: [address] [place] [address] Performed By: #### 6 -7 #### [facility] CLIA [id number] 1 [place] [address] [place] Chloride [Moles/Vol] 92 mmol/L Low 97-105 [facility] Comment on above: Order Comment: Speci men Type: BLOOD SPECIMENOrdering Facility: [facility] Address: [address] [place] [address] Performed By: #### 6 7 #### [facility] CLIA [id number] [address] [place] [address] [place] CO2 [Moles/Vol] 25 mmol/L Normal 22-30 [facility] Comment on above: Order Comment: Speci men Type: BLOOD SPECIMENOrdering Facility: [facility] Address: [address] [place] [address] Performed By: #### 6 00-7 #### [facility] CLIA [id number] 1 [place] [address] [place] Creatinine [Mass/Vol] 0.90 mg/dL Normal 0.73-1.22 [facility] Comment on above: Order Comment: Speci men Type: BLOOD SPECIMENOrdering Facility: [facility] Address: [address] [place] [address] Performed By: #### 6 00-7 #### [facility] CLIA [id number] [address] [place] [address] Creatinine and Glomerular filtration rate.predicted panel (S/P/Bld) 95 mL/min/1.73m??? Normal >=60 [facility] Comment on above: Order Comment: Wilbert men Type: BLOOD SPECIMENOrdering Facility: [facility] Address: [address] [place] [address] Result Comment: Lala mated Glomerular Filtration Rate [...] GFR. Performed By: #### 6 00-7 #### [facility] CLIA [id number] [address] [place] [address] [place] Glucose [Mass/Vol] 122 mg/dL High 74-99 [facility] Comment on above: Order Comment: Wilbert torres Type: BLOOD SPECIMENOrdering Facility: [facility] Address: [address] [place] [address] Result Comment: The [place] Diabetes Association (ADA) provides guidance for cutoff [...] Standards of Medical Care in Diabetes 2016, [place] [employer] Association. Diabetes Care. 2016.39(Suppl 1). Performed By: #### 6 00-7 #### [facility] CLIA [id number] [address] [place] Potassium [Moles/Vol] 5.0 mmol/L Normal 3.7-5.1 [facility] Comment on above: Order Comment: Speci men Type: BLOOD SPECIMENOrdering Facility: [facility] Address: [address] [place] [address] Performed By: #### 6 00-7 #### [facility] CLIA [id number] 1 [place] [address] [place] Protein [Mass/Vol] 7.7 g/dL Normal 6.3-8.0 [facility] Comment on above: Order Comment: Speci men Type: BLOOD SPECIMENOrdering Facility: [facility] Address: [address] [place] [address] Performed By: #### 6 00-7 #### [facility] CLIA [id number] [address] [place] Sodium [Moles/Vol] 129 mmol/L Low 136-144 [facility] Comment on above: Order Comment: Speci men Type: BLOOD SPECIMENOrdering Facility: [facility] Address: [address] [place] [address] Performed By: #### 6 00-7 #### [facility] CLIA [id number] 1 [place] [address] [place] Urea nitrogen [Mass/Vol] 11 mg/dL Normal 9-24 [facility] Comment on above: Order Comment: Speci men Type: BLOOD SPECIMENOrdering Facility: [facility] Address: [address] [place] [address] Performed By: #### 6 00-7 #### [facility] CLIA [id number] 1 [place] [address] [place] Magnesium SerPl-mCncon 12-01 Magnesium [Mass/Vol] 2.3 mg/dL Normal 1.7-2.3 [facility] Comment on above: Order Comment: Speci men Type: BLOOD SPECIMENOrdering Facility: [facility] Address: [address] [place] [address] Performed By: #### 6 00-7 #### [facility] CLIA [id number] [address] NURSING PROGon 12-02-2023 NURSING PROG HNO ID: [id number] Author: RUBY MOTT, RN Service: ? Author Type: Registered Nurse Type: Nursing Progress Note Filed: 12/02/2023 12:16 Note Text: Discharge instructions printed and explained to pt and spouse. Questions answered. Personal belongings with pt and spouse. Pt discharged via wheelchair. Pt d/c to home with . Normal [facility] TSH SerPl-aCncon 12-02-2023 TSH Qn 1.730 m[IU]/L Normal 0.270-4.200 [facility] Comment on above: Order Comment: Speci men Type: BLOOD SPECIMENOrdering Facility: [facility] Address: [address] [place] [address] Performed By: #### 6 00-7 #### [facility] CLIA [id number] [address] OF [facility] Basic metabolic 2000 panelon 12-01-2023 Anion gap [Moles/Vol] 12 mmol/L Normal 9-18 [facility] Comment on above: Order Comment: Speci men Type: BLOOD SPECIMENOrdering Facility: [facility] Address: [address] [place] [address] Performed By: #### 3 2355-0 #### [facility] CLIA [id number] [address] STATES OF [facility] Calcium [Mass/Vol] 9.0 mg/dL Normal 8.5-10.2 [facility] Comment on above: Order Comment: Speci men Type: BLOOD SPECIMENOrdering Facility: [facility] Address: [address] [place] [address] Performed By: #### 3 2355-0 #### [facility] CLIA [id number] [address] [place] Chloride [Moles/Vol] 87 mmol/L Low 97-105 [facility] Comment on above: Order Comment: Speci men Type: BLOOD SPECIMENOrdering Facility: [facility] Address: [address] [place] [address] Performed By: #### 3 2355-0 #### [facility] CLIA [id number] [address] [place] CO2 [Moles/Vol] 24 mmol/L Normal 22-30 [facility] Comment on above: Order Comment: Speci men Type: BLOOD SPECIMENOrdering Facility: [facility] Address: [address] [place] [address] Performed By: #### 3 2355-0 #### [facility] CLIA [id number] [address] [place] Creatinine [Mass/Vol] 0.88 mg/dL Normal 0.73-1.22 [facility] Comment on above: Order Comment: Speci men Type: BLOOD SPECIMENOrdering Facility: [facility] Address: [address] [place] [address] Performed By: #### 3 2355-0 #### [facility] CLIA [id number] [address] Creatinine and Glomerular filtration rate.predicted panel (S/P/Bld) 96 mL/min/1.73m??? Normal >=60 [facility] Comment on above: Order Comment: Speci men Type: BLOOD SPECIMENOrdering Facility: [facility] Address: [address] [place] [address] Result Comment: Lala mated Glomerular Filtration Rate [...] GFR. Performed By: #### 3 2355-0 #### [facility] CLIA [id number] [address] [place] Glucose [Mass/Vol] 103 mg/dL High 74-99 [facility] Comment on above: Order Comment: Speci men Type: BLOOD SPECIMENOrdering Facility: [facility] Address: [address] [place] [address] Result Comment: The [place] Diabetes Association (ADA) provides guidance for cutoff [...] Standards of Medical Care in Diabetes 2016, [place] [employer]. Diabetes Care. 2016.39(Suppl 1). Performed By: #### 3 2355-0 #### [facility] CLIA [id number] 1 [place] [address] [place] Potassium [Moles/Vol] 4.3 mmol/L Normal 3.7-5.1 [facility] Comment on above: Order Comment: Karthikeyani men Type: BLOOD SPECIMENOrdering Facility: [facility] Address: [address] [place] [address] Performed By: #### 3 2355-0 #### [facility] CLIA [id number] 1 [place] [address] [place] Sodium [Moles/Vol] 123 mmol/L Low 136-144 [facility] Comment on above: Order Comment: Speci men Type: BLOOD SPECIMENOrdering Facility: [facility] Address: [address] [place] [address] Performed By: #### 3 2355-0 #### [facility] CLIA [id number] 1 [place] [address] [place] Urea nitrogen [Mass/Vol] 7 mg/dL Low 9-24 [facility] Comment on above: Order Comment: Speci men Type: BLOOD SPECIMENOrdering Facility: [facility] Address: [address] [place] [address] Performed By: #### 3 2355-0 #### [facility] CLIA [id number] [address] STATES [facility] CBC W Auto Differential pane l (Bld)on 12-01-2023 Basophils (Bld) [#/Vol] 0.06 10*3/uL Normal <0.11 [facility] Comment on above: Order Comment: Speci men Type: BLOOD SPECIMENOrdering Facility: [facility] Address: [address] [place] [address] Performed By: #### 5 7021-8 ####[facility] LABCLIA [id number] [place] [id number] [facility] Basophils/100 WBC (Bld) 0.9 % Normal [facility] Comment on above: Order Comment: Speci men Type: BLOOD SPECIMENOrdering Facility: [facility] Address: [address] [place] [address] Performed By: #### 5 7021-8 ####[facility] LABCLIA [id number] [place] [id number] [facility] Differential cell count method Nom (Bld) Auto Normal [facility] Comment on above: Order Comment: Speci men Type: BLOOD SPECIMENOrdering Facility: [facility] Address: [address] [place] [address] Performed By: #### 5 7021-8 ####[facility] LABCLIA [id number] [place] [address] [place] Eosinophils (Bld) [#/Vol] 0.07 10*3/uL Normal <0.46 [facility] Comment on above: Order Comment: Speci men Type: BLOOD SPECIMENOrdering Facility: [facility] Address: [address] [place] [address] Performed By: #### 5 7021-8 ####[facility] LABCLIA [id number] [place] [address] [facility] [place] Eosinophils/100 WBC (Bld) 1.0 % Normal [facility] Comment on above: Order Comment: Speci men Type: BLOOD SPECIMENOrdering Facility: [facility] Address: [address] [place] [address] Performed By: #### 5 7021-8 ####[facility] [id number] [facility] [address] [place] Erythrocyte distribution width (RBC) [Ratio] 14.1 % Normal 11.5-15.0 [facility] Comment on above: Order Comment: Speci men Type: BLOOD SPECIMENOrdering Facility: [facility] Address: [address] [place] [address] Performed By: #### 5 7021-8 ####[facility] [id number] [facility] [address] [place] Hematocrit (Bld) [Volume fraction] 37.6 % Low 39.0-51.0 [facility] Comment on above: Order Comment: Speci men Type: BLOOD SPECIMENOrdering Facility: [facility] Address: [address] [place] [address] Performed By: #### 5 7021-8 ####[facility] LAB[facility] [id number] [facility] [address] [place] Hemoglobin (Bld) [Mass/Vol] 13.0 g/dL Normal 13.0-17.0 [facility] Comment on above: Order Comment: Speci men Type: BLOOD SPECIMENOrdering Facility: [facility] Address: [address] [place] [address] Performed By: #### 5 7021-8 ####[facility] LABCLIA [id number] [facility] [address] [place] Immature granulocytes (Bld) [#/Vol] 0.04 10*3/uL Normal <0.10 [facility] Comment on above: Order Comment: Speci men Type: BLOOD SPECIMENOrdering Facility: [facility] Address: [address] [place] [address] Performed By: #### 5 7021-8 ####[facility] LABCLIA [id number] [place] [address] [facility] Immature granulocytes/100 WBC (Bld) 0.6 % Normal [facility] Comment on above: Order Comment: Speci men Type: BLOOD SPECIMENOrdering Facility: [facility] Address: [address] [place] [address] Performed By: #### 5 7021-8 ####[facility] LABCLIA [id number] [place] [address] [facility] Lymphocytes (Bld) [#/Vol] 1.24 10*3/uL Normal 1.00-4.00 [facility] Comment on above: Order Comment: Speci men Type: BLOOD SPECIMENOrdering Facility: [facility] Address: [address] [place] [address] Performed By: #### 5 7021-8 ####[facility] LAB[facility] [id number] [place] [id number] [facility] Lymphocytes/100 WBC (Bld) 18.2 % Normal [facility] Comment on above: Order Comment: Speci men Type: BLOOD SPECIMENOrdering Facility: [facility] Address: [address] [place] [address] Performed By: #### 5 7021-8 ####[facility] LABCL[facility] [id number] [place] [address] [place] MCH (RBC) [Entitic mass] 29.5 pg Normal 26.0-34.0 [facility] Comment on above: Order Comment: Speci men Type: BLOOD SPECIMENOrdering Facility: [facility] Address: [address] [place] [address] Performed By: #### 5 7021-8 ####[facility] LABCLIA [id number] [place] [address] [place] MCHC (RBC) [Mass/Vol] 34.6 g/dL Normal 30.5-36.0 [facility] Comment on above: Order Comment: Speci men Type: BLOOD SPECIMENOrdering Facility: [facility] Address: [address] [place] [address] Performed By: #### 5 7021-8 ####[facility] LABCLIA [id number] [facility] [address] [place] MCV (RBC) [Entitic vol] 85.3 fL Normal 80.0-100.0 [facility] Comment on above: Order Comment: Speci men Type: BLOOD SPECIMENOrdering Facility: [facility] Address: [address] [place] [address] Performed By: #### 5 7021-8 ####[facility] LABCL[facility] [id number] [place] [address] [place] Monocytes (Bld) [#/Vol] 0.89 10*3/uL High <0.87 [facility] Comment on above: Order Comment: Speci men Type: BLOOD SPECIMENOrdering Facility: [facility] Address: [address] [place] [address] Performed By: #### 5 7021-8 ####[facility] LABCL[facility] [id number] [place] [address] [place] [facility] Monocytes/100 WBC (Bld) 13.1 % Normal [facility] Comment on above: Order Comment: Speci men Type: BLOOD SPECIMENOrdering Facility: [facility] Address: [address] [place] [address] Performed By: #### 5 7021-8 ####[facility] LABCL[facility] [id number] [facility] [address] [place] Neutrophils (Bld) [#/Vol] 4.50 10*3/uL Normal 1.45-7.50 [facility] Comment on above: Order Comment: Speci men Type: BLOOD SPECIMENOrdering Facility: [facility] Address: [address] [place] [address] Performed By: #### 5 7021-8 ####[facility] LABCLIA [id number] [place] [address] [place] Neutrophils/100 WBC (Bld) 66.2 % Normal [facility] Comment on above: Order Comment: Speci men Type: BLOOD SPECIMENOrdering Facility: [facility] Address: [address] [place] [address] Performed By: #### 5 7021-8 ####[facility] LABCLIA [id number] [place] [address] [place] Nucleated RBC (Bld) [#/Vol] Normal [facility] Comment on above: Order Comment: Speci men Type: BLOOD SPECIMENOrdering Facility: [facility] Address: [address] [place] [address] Performed By: #### 5 7021-8 ####[facility] [id number] [facility] [place] [address] [facility] [place] Nucleated RBC/100 WBC (Bld) [Ratio] Normal [facility] Comment on above: Order Comment: Speci men Type: BLOOD SPECIMENOrdering Facility: [facility] Address: [address] [place] [address] Performed By: #### 5 7021-8 ####[facility] [id number] [facility] [place] [address] [place] Platelet mean volume (Bld) [Entitic vol] 8.8 fL Low 9.0-12.7 [facility] Comment on above: Order Comment: Speci men Type: BLOOD SPECIMENOrdering Facility: [facility] Address: [address] [place] [address] Performed By: #### 5 7021-8 ####[facility] [id number] [facility] [place] [address] [place] Platelets (Bld) [#/Vol] 242 10*3/uL Normal 150-400 [facility] Comment on above: Order Comment: Speci men Type: BLOOD SPECIMENOrdering Facility: [facility] Address: [address] [place] [address] Performed By: #### 5 7021-8 ####[facility] LABIA [id number] [place] [address] [facility] [place] RBC (Bld) [#/Vol] 4.41 10*6/uL Normal 4.20-6.00 [facility] Comment on above: Order Comment: Speci men Type: BLOOD SPECIMENOrdering Facility: [facility] Address: [address] [place] [address] Performed By: #### 5 7021-8 ####[facility] LABCLIA [id number] [place] [address] [facility] WBC (Bld) [#/Vol] 6.80 10*3/uL Normal 3.70-11.00 [facility] Comment on above: Order Comment: Speci men Type: BLOOD SPECIMENOrdering Facility: [facility] Address: [address] [place] [address] Performed By: #### 5 7021-8 ####[facility] LABIA [id number] [place] [address] [facility] ECG COMPLETEon 12-01-2023 ECG COMPLETE Ventricular Rate : 6 9 BPM Atrial Rate : 69 BPM P-R Interval : 138 ms QRS Duration : 126 ms Q-T Interval : 450 ms QTC Calculation(Bazett) : 482 ms Calculated P Grady : -13 degrees Calculated R Grady : 78 degrees Calculated T Grady : 24 degrees SINUS RHYTHM WITH PREMATURE SUPRAVENTRICULAR COMPLEXES RIGHT BUNDLE BRANCH BLOCK ABNORMAL ECG NO PREVIOUS ECGS AVAILABLE Confirmed by MD SUAREZ VINAYAK ([id number]) on 12/03/2023 4:27:07 PM NAME : ELIS BILLS PID : [id number] : 1960 Gender : Male Race : ORD : [id number] Procedure Date : Dec 01 2023 09:50:21 Edit Date : Dec 03 2023 16:27:10 Diagnosis: SINUS RHYTHM WITH PREMATURE SUPRAVENTRICULAR COMPLEXES RIGHT BUNDLE BRANCH BLOCK ABNORMAL ECG NO PREVIOUS ECGS AVAILABLE Confirmed by MD SUAREZ VINAYAK ([id number]) on 12/03/2023 4:27:07 PM Test Reason : Shortness of Breath Location : 191 : [facility] ED Overread By : MD SUAREZ VINAYAK Edited By : MD SUAREZ VINAYAK Referred By : , Acquired by : DAREN RUCKER [facility] ED NOTEon 12-01-2023 ED NOTE HNO ID: [id number] Author: JORGE JONES, NEENA Service: Nursing Author Type: Registered Nurse Type: ED Notes Filed: 12/01/2023 12:48 Note Text: Patient resting in bed with spouse at bedside. This RN notified patient of room assignment. [facility] ED NOTE HNO ID: [id number] Author: JORGE JONES, NEENA Service: Nursing Author Type: Registered Nurse Type: ED Notes Filed: 12/01/2023 10:59 Note Text: Patient ambulated to bathroom with steady gait. He returned to room 12 SOB, and feeling unchanged from when he arrived. [facility] ED NOTE HNO ID: [id number] Author: JORGE JONES RN Service: Nursing Author Type: Registered Nurse Type: ED Notes Filed: 12/01/2023 09:34 Note Text: Wednesday patient started to feeling winded and it has progressed to SOB with rest or activity. He has used several albuterol treatments at home with no improvement of symptoms. He denies fever but reports a productive cough. No home oxygen needs for his COPD. [facility] ED PROV NOTEon 12-01-2023 ED PROV NOTE HNO ID: [id number] Author: KEYONA CARL DO Service: Emergency Medicine [...] within n (more content not included)... Normal [facility] FLUABV+SARS-CoV-2+RSV Pnl Re sp YADIRA+probeon 12-01-2023 FLUABV+SARS-CoV-2+RSV Pnl Resp YADIRA+probe COVID 19 RESULT: Not detected The method used is RT-PCR or an equivalent NAAT method. Reference Range(the expected result in uninfected individuals): Not detected INFLUENZA A PCR: Not detected INFLUENZA B PCR: Not detected RSV PCR: Not detected Normal [facility] Comment on above: Performed By: #### 9 5941-1 ####[facility] LABCLIA [id number] [place] [address] [place] HIGH SENSITIVITY TROPONIN T (INITIAL)on 12-01-2023 Troponin T.cardiac High sensitivity method [Mass/Vol] 31 ng/L High <12 [facility] Comment on above: Order Comment: Wilbert torres Type: BLOOD SPECIMENOrdering Facility: [facility] Address: [address] [place] [address] Result Comment: When assessing risk for acute [...] MACE. Performed By: #### 6 00-7 #### [facility] CLIA [id number] [address] HIGH SENSITIVITY TROPONIN T (SECOND)on 12-01-2023 Troponin T.cardiac High sensitivity method [Mass/Vol] 29 ng/L High <12 [facility] Comment on above: Order Comment: Wilbert torres Type: BLOOD SPECIMENOrdering Facility: [facility] Address: [address] [place] [address] Result Comment: When assessing risk for acute [...] MACE. Performed By: #### 6 00-7 #### [facility] CLIA [id number] [address] [place] HIGH SENSITIVITY TROPONIN T (THIRD) 3 HRS AFTER INITIALon 12-01-2023 Troponin T.cardiac High sensitivity method [Mass/Vol] 24 ng/L High <12 [facility] Comment on above: Order Comment: Wilbert torres Type: BLOOD SPECIMENOrdering Facility: [facility] Address: [address] [place] [address] Result Comment: When assessing risk for acute [...] MACE. Performed By: #### 3 2355-0 #### [facility] CLIA [id number] [address] STATES OF [facility] HISTORY PHYSICALon HISTORY PHYSICAL HNO ID: [id number] Author: ALBERTINA DAVILA APRN.CLINICAL ADMINISTRATOR Service: Hospital Medicine Author Type: Nurse Practitioner Type: H&P Filed: 12/01/2023 15:07 Note Text: Attestation signed by Ji Fonseca MD at 12/10/2023 9:25 PM [facility] STAFF PHYSICIAN NOTE OF PERSONAL INVOLVEMENT IN [...] exacerbation (HCC) (POA: Yes) Ji Fonseca MD, [facility] Staff,Dept of Hospital Medicine December 10, 2023 9:25 PM Pager:Click here to page DEPARTMENT OF HOSPITAL MEDICINE HISTORY AND PHYSICAL EXAM SERVICE DATE: 12/01/2023 SERVICE TIME: 1:45 PM Primary Care Physician: Pilar Steele, DO NIGHT AND WEEKEND COVERAGE: [facility] Medicine ROMÁN 7a-7p Page [phone] 7w- Subjective CHIEF COMPLAINT: SOB HPI: This is [...] 12 hours. He reports he saw his vehicle monitor technician on 11/11/23 who ordered two new inhalers. [...] agreeable to observation overnight, but only at [facility]. Patient will be admitted for further management. [...] He is (more content not included)... Normal [facility] NT-proBNP [facility] 11-30 Natriuretic peptide.B prohormone N-Terminal [Mass/Vol] 214 pg/mL High <125 [facility] Comment on above: Order Comment: Speci men Type: BLOOD SPECIMENOrdering Facility: [facility] Address: [address] [place] [address] Performed By: #### 3 2355-0 #### [facility] CLIA [id number] [address] [place] NURSING PROGon 12-01-2023 NURSING PROG HNO ID: [id number] Author: ARI HATCH, RN Service: Nursing Author [...] pain. Pt c/odiscomfort. present in room. Normal [facility] Osmolality SerPlon Osmolality [Osmolality] 262 mosm/kg Low 275-300 [facility] Comment on above: Order Comment: Speci men Type: BLOOD SPECIMENOrdering Facility: [facility] Address: [address] [place] [address] Performed By: #### 6 00-7 #### [facility] [id number] [address] [place] [address] [place] Osmolality Uron 12-01-2023 Osmolality (U) [Osmolality] 111 mosm/kg Normal 50-1200 [facility] Comment on above: Order Comment: Speci men Type: URINE SPECIMENOrdering Facility: [facility] Address: [address] [place] [address] Performed By: #### 2 695-5 ####[facility] LABCLIA [id number] [place] [address] [place]#### 33152-4 ####[facility] LABORATORYCLIA [id number] [place] [address] [place] Procalcitonin SerPl-mCncon 0 12-01-2023 Procalcitonin [Mass/Vol] 0.08 ng/mL Normal <0.09 [facility] Comment on above: Order Comment: Speci men Type: BLOOD SPECIMENOrdering Facility: [facility] Address: [address] [place] [address] Result Comment: For a guided interpretation of test results, please visit the Change in Procalcitonin Calculator, [email or web address]. Performed By: #### 3 2355-0 #### [facility] CLIA [id number] [address] OF [facility] Sodium ?Tm Ur-sCncon 024 Sodium Unsp time (U) [Moles/Vol] <20 Normal 14-216 [facility] Comment on above: Order Comment: Speci men Type: URINE SPECIMENOrdering Facility: [facility] Address: [address] [place] [address] Performed By: #### 2 695-5 ####[facility] LABCLIA [id number] [address] [place]#### [address]-0 ####[facility] LABORATORYCLIA [id number] [address] [place] Urate SerPl-mCncon 4 Urate [Mass/Vol] 6.8 mg/dL Normal 4.0-8.[address] [facility] Comment on above: Order Comment: Speci men Type: BLOOD SPECIMENOrdering Facility: [facility] Address: [address] [place] [address] Performed By: #### 3 2355-0 #### [facility] CLIA [id number] 1 94 [address] [place] XR CHEST 1V [...] right basilar opacity suggesting atelectasis. Mild cardiomegaly. Stock Controller: YAIR Transcribe Date/Time: Dec 01 2023 10:52A Dictated by : JUAREZ RODAS MD This examination was interpreted and the report reviewed and electronically signed by: JUAREZ RODAS MD on Dec 01 2023 10:57AM EST [id number] Normal [facility] 11-21-2023 JELENA Telephone (AGSPHWG) ELIS BILLS ([id number]) 1960 Date Time Provider Department 11/21/23 [facility] your visit today, we recorded the [...] on 11/25/2023 to discuss MRI Albertina Martin [place] to Dr. Everton Decker MD / Bertha Schumacher CNP, APRN [facility] [place] [address] [place] [address] Phone. [phone] / Fax. [phone] Allergies As of Date: 11/21/2023 Noted Allergy Reaction PENICILLINS 08/27/2014 16 - Unknown Date Reviewed: 11/19/2023 Reviewed by: Malena Yoder, call out operator - Fully Assessed Prescriptions as of 11/23/2023 [...] Encounter Status:Closed by ALBERTINA MARTIN on 11/23/23 [facility] MR Lumbar spine WO contrasto [...] and assume there are 5 lumbar-type vertebrae. Stock Controller: PSCB Transcribe Date/Time: Nov 19 2023 3:30P Dictated by : MECHELLE EDMONDSON MD This examination was interpreted and the report reviewed and electronically signed by: MECHELLE EDMONDSON MD on Nov 19 2023 3:44PM [facility] DIVISION OF RADIOLOGY * * *Final Report* [...] cyst or hemangioma. DIVISION OF RADIOLOGY Provider, [facility] - 11/19/2023 * * *Final Report* [...] and assume there are 5 lumbar-type vertebrae. Stock Controller: YAIR Transcribe Date/Time: Nov 19 2023 3:30P Dictated by : MECHELLE EDMONDSON MD This examination was interpreted and the report reviewed and electronically signed by: MECHELLE EDMONDSON MD on Nov 19 2023 3:44PM EST [facility] Radiology Study observation (narrative) [facility] MR Lumbar spine WO contrastO rdered By: Ccf Provider on 11-19-2023 [facility] ALLIED HEALTHon 09-02-2023 ALLIED HEALTH HNO ID: [id number] Author: ERMIAS SAMUELS RT(R) Service: Radiology Author Type: Technologist Type: Allied Health Filed: 09/02/2023 13:19 Note Text: Radiology Service Progress Note PATIENT NAME: Eils Bills DATE OF SERVICE: September 02, 2023 [...] PATIENT PRESENTS WITH AN IMPLANTABLE OR ATTACHED WATER USE INSPECTOR: No RADIOLOGY DEPARTMENT: CT; Exam(s) Completed: Chest PERIPHERAL IV DATA: Not applicable SIGNED BY: RT Chyna(R) September 02, 2023 1:16 PM [facility] CT CHEST WO IVCONon 09-02-19 CT CHEST WO IVCON * * *Final Report* * * DATE OF EXAM: Sep 02 2023 1:21PM [facility] - CT CHEST WO IVCON / [...] No abnormality in the imaged upper abdomen. Clinical Nurse Reviewer (topogram) images: No additional findings. IMPRESSION: No [...] obtained in 12 months --END OF FINDING-- Stock Controller: YAIR Transcribe Date/Time: Sep 05 2023 11:40A Dictated by : WILLIAM QUINTANA MD This examination was interpreted and the report reviewed and electronically signed by: WILLIAM QUINTANA MD on Sep 05 2023 11:47AM EST [id number] ACTIONABLE Invalid Interpretation Code [facility] NITRIC OXIDE, EXHALEDon 08-19 [facility] SPIROMETRY WITH DILATOR IF O BSTRUCTEDon 08-20-2023 ROW83-62% PRE (L/S) 0.90 L/S [facility] FEV1 PRE (L) 1.70 L [facility] FEV1/FVC PRE (%) 70 % [facility] FVC PRE (L) 2.44 L [facility] PEF PRE (L/S) 5.67 L/S [facility] Chest PA and Lateralon 08-04 Chest PA and Lateral [facility] Imaging Services [address] [place] [address] Chest PA and Lateral MR#: [id number] Acct: [id number] Name: ELIS BILLS Rep #: [id number] : 1960 M 63 From: Fartun franco MD PCP: Dr. Pilar Steele DO Status: REG CLI Study: Chest PA and Lateral Date of Exam: 08/04/23 Exam# [id number] Ordering Dr: Pilar Steele DO [id number] HISTORY: SOB/COUGH/COPD/BRONCH ITIS. TECHNIQUE: XR Chest 2 Views. COMPARISON: None. FINDINGS: CARDIOMEDIASTINAL BORDERS: Cardiac silhouette within normal limits in size. Mediastinal contour unremarkable. LUNGS: Radiographically clear. PLEURA: No pleural effusion or pneumothorax seen. OSSEOUS STRUCTURES: Spinal osteophytes present. RAD/Chest PA and Lateral IMPRESSION: No acute cardiopulmonary process identified. Electronically Signed: Fartun Chicas MD at 13:23 EST Reading Location ID and State: [facility] / [place] Tel , Service support , CC: Dr. Pilar Steele DO Stock Controller: Signed Normal [facility] Inital Evaluation (1) - PTon 05-14-2023 Inital Evaluation (1) - PT [facility] Physical Therapy [facility] [address] [place] [address] [address] [place] [address] / REHABILITATION SERVICES INITIAL EVALUATION MR#: [id number] Acct: [id number] Name: ELIS BILLS Rep #: [id number] : 1960 63 From: Flora Valerio PT, Cert. MDT Referring Dr.: Dr. Juarez Dewitt DO Status: G RCR Insurance: [facility] PACKAGE PLAN Patient's Visit Information Visit Information [...] Activity Modifications. HEP Instruction. 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 Disability: NO Present symptoms: [...] MALOXACAM. CONSULT WITH [facility] - DR. DEWTIT. MRI RECOMMENDED BUT PATIENT REFUSED. ALSO STATES [...] to activity/condition/po (more content not included)... Normal [facility] Automated blood hematocrit ( percentage)Ordered By: Pilar Steele on 02-20-2023 Hematocrit (Bld) [Volume fraction] 39.6 % Low 40-54 [facility] Comment on above: Performed By: #### L 501.9910, L500.4050, L502.0250, L100.0500, L500.4100 #### [facility] Laboratory [address] [place], [address] Basophil percentageOrdered B y: Pilar Steele on 02-20-2023 Bilirubin [Mass/Vol] 0.60 mg/dL Normal 0.20-1.00 [facility] Comment on above: For patients on eltr ombopag therapy, use of Dimension [place] TBIL is not recommended. Result Comment: For patients on eltrombopag therapy, use of Dimension [place] TBIL is not recommended. Performed By: #### L 501.9910, L500.4050, L502.0250, L100.0500, L500.4100 #### [facility] [address] [place], [address] Chloride [Moles/Vol] 101 mmol/L Normal 98-107 [facility] Comment on above: Performed By: #### L 501.9910, L500.4050, L502.0250, L100.0500, L500.4100 #### [facility] [address] [place], [address] Cholesterol [Mass/Vol] 89 mg/dL Normal 200 [facility] Comment on above: <200 mg/dL Desirable 200-240 mg/dL Borderline >240 mg/dL High Risk Result Comment: <200 mg/dL Desirable 200-240 mg/dL Borderline >240 mg/dL High Risk Performed By: #### L 501.9910, L500.4050, L502.0250, L100.0500, L500.4100 #### [facility] [address] [place], [address] Glucose [Mass/Vol] 102 mg/dL Normal 74-106 [facility] Comment on above: Fasting Glucose resu lt from 100 to 125 mg/dL suggests IMPAIRED HOMEOSTASIS per A.D.A. criteria. Result Comment: Fast ing Glucose result from 100 to 125 mg/dL suggests IMPAIRED HOMEOSTASIS per A.D.A. criteria. Performed By: #### L 501.9910, L500.4050, L502.0250, L100.0500, L500.4100 #### [facility] [address] [place], [address] Potassium [Moles/Vol] 4.7 mmol/L Normal 3.5-5.1 [facility] Comment on above: Performed By: #### L 501.9910, L500.4050, L502.0250, L100.0500, L500.4100 #### [facility] [address] [place], [address] Sodium [Moles/Vol] 135 mmol/L Low 136-145 [facility] Comment on above: Performed By: #### L 501.9910, L500.4050, L502.0250, L100.0500, L500.4100 #### [facility] [address] [place], [address] Triglyceride [Mass/Vol] 54 mg/dL Normal [facility] Comment on above: The drugs N-Acetylcy steine [...] L 501.9910, L500.4050, L502.0250, L100.0500, L500.4100 #### [facility] [address] [place], [address] WBC (Bld) [#/Vol] 7.7 10*3/uL Normal 4.4-11.0 [facility] Comment on above: Performed By: #### L 501.9910, L500.4050, L502.0250, L100.0500, L500.4100 #### [facility] [address] [place], [address] Protein [Mass/Vol] 7.3 g/dL 6.4-8.2 [facility] Blood erythrocytes count (nu mber/volume)Ordered By: Pilar Steele on 02-20-2023 RBC (Bld) [#/Vol] 4.46 10*6/uL Low 4.6-6.2 [facility] Comment on above: Performed By: #### L 501.9910, L500.4050, L502.0250, L100.0500, L500.4100 #### [facility] [address] [place], [place], [id number] Blood hemoglobin measurement (mass/volume)Ordered By: Pilar Steele on 02-20-2023 Hemoglobin (Bld) [Mass/Vol] 13.2 g/dL Normal 13.0-16.5 [facility] Comment on above: Performed By: #### L 501.9910, L500.4050, L502.0250, L100.0500, L500.4100 #### [facility] [address] [place], [place], [id number] Blood platelet mean volumeOr dered By: Pilar Steele on 02-20-2023 Platelet mean volume (Bld) [Entitic vol] 9.4 fL Normal 6.2-12.0 [facility] Comment on above: Performed By: #### L 501.9910, L500.4050, L502.0250, L100.0500, L500.4100 #### [facility] [address] [place], [place], [id number] CBC-Complete Blood Cnt No Di ffOrdered By: Pilar Steele on 02-20-2023 Erythrocyte distribution width (RBC) [Ratio] 13.8 % Normal 11.6-14.6 [facility] Comment on above: Performed By: #### L 501.9910, L500.4050, L502.0250, L100.0500, L500.4100 #### [facility] [address] [place], [address] MCH (RBC) [Entitic mass] 29.6 pg Normal 27.0-32.0 [facility] Comment on above: Performed By: #### L 501.9910, L500.4050, L502.0250, L100.0500, L500.4100 #### [facility] [address] [place], [address] CBC-Complete Blood Cnt No Di on 02-20-2023 RDW SD 44.9 fl High 35.1-43.9 [facility] Comment on above: Performed By: #### L 501.9910, L500.4050, L502.0250, L100.0500, L500.4100 #### [facility] [address] [place], [address] Comprehensive Metabolic Prof [facility] 02-20-2023 ALK P 71 U/L Normal 45-117 [facility] Comment on above: Performed By: #### L 501.9910, L500.4050, L502.0250, L100.0500, L500.4100 #### [facility] [address] [place], [address] AST [Catalytic activity/Vol] 17 U/L Normal 15-37 [facility] Comment on above: Performed By: #### L 501.9910, L500.4050, L502.0250, L100.0500, L500.4100 #### [facility] [address] [place], [address] BUN/CRE 12.3 RATIO Normal 10-20 [facility] Comment on above: Performed By: #### L 501.9910, L500.4050, L502.0250, L100.0500, L500.4100 #### [facility] [address] [place], [address] CA,Total 8.7 mg/dL Normal 8.5-10.1 [facility] Comment on above: Performed By: #### L 501.9910, L500.4050, L502.0250, L100.0500, L500.4100 #### [facility] [address] [place], [address] EST GFR - AA 99 mL/min Normal >60 [facility] Comment on above: Result Comment: Afri can [place] GFR Calc Performed By: #### L 501.9910, L500.4050, L502.0250, L100.0500, L500.4100 #### [facility] [address] [place], [address] GAP 5 Normal 5-15 [facility] Comment on above: Performed By: #### L 501.9910, L500.4050, L502.0250, L100.0500, L500.4100 #### [facility] [address] [place], [place], [phone] GFR/1.73 sq M.predicted among non-blacks MDRD (S/P/Bld) [Vol rate/Area] 82 mL/min/{1.73_m2} Normal >60 [facility] Comment on above: Result Comment: Non- GFR Calc Performed By: #### L 501.9910, L500.4050, L502.0250, L100.0500, L500.4100 #### [facility] [address] [place], [address] T PROT 7.3 g/dL Normal 6.4-8.2 [facility] Comment on above: Performed By: #### L 501.9910, L500.4050, L502.0250, L100.0500, L500.4100 #### [facility] [address] [place], [address] Comprehensive Metabolic Prof ilOrdered By: Pilar Steele on 02-20-2023 ALT [Catalytic activity/Vol] 26 U/L Normal 16-61 [facility] Comment on above: Performed By: #### L 501.9910, L500.4050, L502.0250, L100.0500, L500.4100 #### [facility] [address] [place], [address] CO2 [Moles/Vol] 29.0 mmol/L Normal 21.0-32.0 [facility] Comment on above: Performed By: #### L 501.9910, L500.4050, L502.0250, L100.0500, L500.4100 #### [facility] [address] [place], [address] Globulin (S) [Mass/Vol] 3.6 g/dL Normal 2.2-4.2 [facility] Comment on above: Performed By: #### L 501.9910, L500.4050, L502.0250, L100.0500, L500.4100 #### [facility] [address] [place], [address] Determination of erythrocyte mean corpuscular volume (MCV)Ordered By: Pilar Steele on 02-20-2023 MCV (RBC) [Entitic vol] 88.8 fL Normal 80-94 [facility] Comment on above: Performed By: #### L 501.9910, L500.4050, L502.0250, L100.0500, L500.4100 #### [facility] [address] [place], [address] Laboratory - Chemistry and C hemistry - challengeOrdered By: Pilar Steele on 02-20-2023 ALP [Catalytic activity/Vol] 71 U/L 45-117 [facility] Urea nitrogen/Creatinine [Mass ratio] 12.3 mg/mg 10-20 [facility] Laboratory - Hematology and Cell countsOrdered By: Pilar Steele on 02-20-2023 Erythrocyte distribution width (RBC) [Entitic vol] 44.9 fL 35.1-43.9 [facility] MCHC [Mass/volume] by Automa ignacio countOrdered By: Pilar Steele on 02-20-2023 MCHC (RBC) [Mass/Vol] 33.3 g/dL Normal 32-36 [facility] Comment on above: Performed By: #### L 501.9910, L500.4050, L502.0250, L100.0500, L500.4100 #### [facility] [address] [place], [address] Microalb:Creat Ratio,Random URon 02-20-2023 MALB:CRE Normal <30 mg/g CRE [facility] Comment on above: Result Comment: @[facility] IENT DID NOT WANT TO DO URINE Performed By: #### L 501.9910, L500.4050, L502.0250, L100.0500, L500.4100 #### [facility] [address] [place], [place], [phone] MICROALBUMIN,UR Normal NO RANGE EST. [facility] Comment on above: Result Comment: @PAT IENT DID NOT WANT TO DO URINE Performed By: #### L 501.9910, L500.4050, L502.0250, L100.0500, L500.4100 #### [facility] [address] [place], [address] UR CREAT Normal NO RANGE EST. [facility] Comment on above: Result Comment: @PAT IENT DID NOT WANT TO DO URINE Performed By: #### L 501.9910, L500.4050, L502.0250, L100.0500, L500.4100 #### [facility] [address] [place], [address] No Panel InformationOrdered By: Pilar Steele on 02-20-2023 Estimated GFR (MDRD) Amer 99 mL/min >60 [facility] Comment on above: GFR Calc Estimated GFR (MDRD) Non-Af Amer 82 mL/min >60 [facility] Comment on above: Non- GFR Calc Prostate Specific Antigen Screen 0.77 ng/mL 0.00-4.00 [facility] Comment on above: This test was perfor med using the TPSA assay method for the[employer]Stream[employer] chemistry system. Values obtained with differentassay methods cannot be used interchangably.When changing PSA assays in the course of monitoring apatient, additional sequential testing should be carriedout to confirm baseline values. PSA,Total - Annual Screenon 02-20-2023 PSA,TOT SCREEN 0.77 ng/mL Normal 0.00-4.00 [facility] Comment on above: Result Comment: This test was performed using the TPSA assay method for the [employer] chemistry system. Values obtained with different assay methods cannot be used interchangably. When changing PSA assays in the course of monitoring a patient, additional sequential testing should be carried out to confirm baseline values. Performed By: #### L 501.9910, L500.4050, L502.0250, L100.0500, L500.4100 #### [facility] [address] [place], [address] Platelets bldOrdered By: Jeffrey Steele on 02-20-2023 Platelets (Bld) [#/Vol] 250 10*3/uL Normal 150-450 [facility] Comment on above: Performed By: #### L 501.9910, L500.4050, L502.0250, L100.0500, L500.4100 #### [facility] [address] [place], [address] Serum or plasma albumin sidra urement (mass/volume)Ordered By: Pilar Steele on 02-20-2023 Albumin [Mass/Vol] 3.7 g/dL Normal 3.2-5.0 [facility] Comment on above: Performed By: #### L 501.9910, L500.4050, L502.0250, L100.0500, L500.4100 #### [facility] [address] [place], [address] Serum or plasma albumin/glob ulin mass ratioOrdered By: Pilar Steele on 02-20-2023 Albumin/Globulin [Mass ratio] 1.0 {ratio} Normal 0.9-2.4 [facility] Comment on above: Performed By: #### L 501.9910, L500.4050, L502.0250, L100.0500, L500.4100 #### [facility] [address] [place], [place], [id number] Serum or plasma calcium sidra urement (mass/volume)Ordered By: Pilar Steele on 02-20-2023 Calcium [Mass/Vol] 8.7 mg/dL 8.5-10.1 [facility] Serum or plasma cholesterol in HDL measurement (mass/volume)Ordered By: Pilar Steele on 02-20-2023 Cholesterol in HDL [Mass/Vol] 48 mg/dL Normal [facility] Comment on above: The drugs N-Acetylcy steine [...] L 501.9910, L500.4050, L502.0250, L100.0500, L500.4100 #### [facility] [address] [place], [address] Serum or plasma cholesterol in VLDL measurement (mass/volume)Ordered By: Pilar Steele on 02-20-2023 Cholesterol in VLDL [Mass/Vol] 11 mg/dL Normal 5-40 [facility] Comment on above: Performed By: #### L 501.9910, L500.4050, L502.0250, L100.0500, L500.4100 #### [facility] [address] [place], [address] Serum or plasma creatinine m easurement (mass/volume)Ordered By: Pilar Steele on 02-20-2023 Creatinine [Mass/Vol] 0.98 mg/dL Normal 0.70-1.30 [facility] Comment on above: The validity of the calculated GFR & GFRAA in patients over 70 years has not been determined. Clinical correlation is essential. Result Comment: The validity of the calculated GFR GFRAA in patients over 70 years has not been determined. Clinical correlation is essential. Performed By: #### L 501.9910, L500.4050, L502.0250, L100.0500, L500.4100 #### [facility] [address] [place], [place], [id number] Serum or plasma low density lipoprotein (LDL) cholesterol measurement (mass/volume)Ordered By: Pilar Steele on 02-20-2023 Cholesterol in LDL [Mass/Vol] 30 mg/dL Normal 0-130 [facility] Comment on above: Performed By: #### L 501.9910, L500.4050, L502.0250, L100.0500, L500.4100 #### [facility] [address] [place], [place], [id number] Serum or plasma urea nitroge n measurement (mass/volume)Ordered By: Pilar Steele on 02-20-2023 Urea nitrogen [Mass/Vol] 12 mg/dL Normal 7-18 [facility] Comment on above: Performed By: #### L 501.9910, L500.4050, L502.0250, L100.0500, L500.4100 #### [facility] [address] [facility] [place], [place], [address] Thin prep Papanicolaou smear with manual screeningOrdered By: Pilar Steele on 02-20-2023 Thin prep Papanicolaou smear with manual screening 17 U/L 15-37 [facility] Thin prep Papanicolaou smear with manual screening 5 5-15 [facility] Basophil percentageon 2021 Bilirubin [Mass/Vol] 0.60 mg/dL 0.20-1.00 [facility] Work Phone: Comment on above: For patients on eltr ombopag therapy, use of Dimension [place] TBIL is not recommended. Chloride [Moles/Vol] 102 mmol/L 98-107 [facility] Work Phone: Cholesterol [Mass/Vol] 86 mg/dL <200 [facility] Work Phone: Comment on above: <200 mg/dL Desirable 200-240 mg/dL Borderline >240 mg/dL High Risk Glucose [Mass/Vol] 98 mg/dL 74-106 [facility] Work Phone: Potassium [Moles/Vol] 4.3 mmol/L 3.5-5.1 [facility] Work Phone: Protein [Mass/Vol] 7.0 g/dL 6.4-8.2 [facility] Work Phone: Sodium [Moles/Vol] 134 mmol/L 136-145 [facility] Work Phone: Triglyceride [Mass/Vol] 51 mg/dL <199 [facility] Work Phone: Comment on above: The drugs N-Acetylcy steine and Metamizole may falsely depress this assay.Serum Triglycerides Reference Interval Normal <150 mg/dL Borderline high 150 - 199 mg/dL High 200 - 499 mg/dL Very High > or = 500 mg/dL Laboratory - Chemistry and C hemistry - challengeon 02-07-2022 ALP [Catalytic activity/Vol] 79 U/L 45-117 [facility] Work Phone: ALT [Catalytic activity/Vol] 30 U/L 16-61 [facility] Work Phone: CO2 [Moles/Vol] 27.0 mmol/L 21.0-32.0 [facility] Work Phone: Globulin (S) [Mass/Vol] 3.5 g/dL 2.2-4.2 [facility] Work Phone: Urea nitrogen/Creatinine [Mass ratio] 6.2 mg/mg 10-20 [facility] Work Phone: No Panel Informationon 02-07 Estimated GFR (MDRD) Amer 102 mL/min >60 [facility] Work Phone: Comment on above: GFR Calc Estimated GFR (MDRD) Non-Af Amer 84 mL/min >60 [facility] Work Phone: Comment on above: Non- GFR Calc Prostate Specific Antigen Screen 0.99 ng/mL 0.00-4.00 [facility] Work Phone: Comment on above: This test was perfor med using the TPSA assay method for [employer] chemistry system. Values obtained with differentassay methods cannot be used interchangably.When changing PSA assays in the course of monitoring apatient, additional sequential testing should be carriedout to confirm baseline values. Serum or plasma albumin sidra urement (mass/volume)on 02-07-2022 Albumin [Mass/Vol] 3.5 g/dL 3.2-5.0 [facility] Work Phone: Serum or plasma albumin/glob ulin mass ratioon 02-07-2022 Albumin/Globulin [Mass ratio] 1.0 {ratio} 0.9-2.4 [facility] Work Phone: Serum or plasma calcium sidra urement (mass/volume)on 02-07-2022 Calcium [Mass/Vol] 8.7 mg/dL 8.5-10.1 [facility] Work Phone: Serum or plasma cholesterol in HDL measurement (mass/volume)on 02-07-2022 Cholesterol in HDL [Mass/Vol] 41 mg/dL >40 [facility] Work Phone: Comment on above: The drugs N-Acetylcy steine and Metamizole may falsely depress this assay. Reference Range HDL <40 mg/dL Low HDL Cholesterol HDL >or= 60 mg/dL High HDL Cholesterol Serum or plasma cholesterol in VLDL measurement (mass/volume)on 02-07-2022 Cholesterol in VLDL [Mass/Vol] 10 mg/dL 5-40 [facility] Work Phone: Serum or plasma creatinine m easurement (mass/volume)on 02-07-2022 Creatinine [Mass/Vol] 0.96 mg/dL 0.70-1.30 [facility] Work Phone: Comment on above: The validity of the calculated GFR & GFRAA in patients over 70 years has not been determined. Clinical correlation is essential. Serum or plasma low density lipoprotein (LDL) cholesterol measurement (mass/volume)on 02-07-2022 Cholesterol in LDL [Mass/Vol] 35 mg/dL 0-130 [facility] Work Phone: Serum or plasma urea nitroge n measurement (mass/volume)on 02-07-2022 Urea nitrogen [Mass/Vol] 6 mg/dL 7-18 [facility] Work Phone: Thin prep Papanicolaou smear with manual screeningon 02-07-2022 Thin prep Papanicolaou smear with manual screening 17 U/L 15-37 [facility] Work Phone: Thin prep Papanicolaou smear with manual screening 5 5-15 [facility] Work Phone: Serum or plasma severe acute respiratory syndrome coronavirus 2 (SARS-CoV-2) IgG antion 01-31-2022 SARS-CoV-2 (COVID-19) IgG IA Ql See comment [facility] Work Phone: Comment on above: TEST RESULT LIMITSSA RS-CoV-2 Antibody, [id number] Semi- Quant IgG Ab A, 47.8 AU/mL Neg <13.0SARS-CoV-2 Cl Ab Interp A, PositiveAntibodies against the SARS-CoV-2 spike protein, including the receptor binding domain (RBD) were detected. It is not yet known what level of antibody to SARS-CoV-2 spike protein correlates to immunity against developing symptomatic SARS-CoV-2 disease.This assay was performed using [employer](R) SARS-CoV-2 Trimeric S IgG assay.CommentsA: This [...] viruses or pathogens. ___ TESTING PERFORMED AT [facility]. ORIGINAL REPORT ON FILE IN LAB CONTAINS ADDITIONAL TEST SITE INFORMATION. .GFRon 12-30-2019 GFR 87 ml/min/1.73sqm Normal [facility] ([place]) Comment on above: Result Comment: GFR Population [...] #### L IPID, CMP, GFR #### [place] [address] GFR Non- 72 ml/min/1.73sqm Normal [facility] ([place]) Comment on above: Result Comment: GFR Population [...] By: #### L IPID, CMP, GFR #### [address] [address] CMPon 12-30-2019 Albumin [Mass/Vol] 4.2 G/dL Normal 3.4-4.8 [facility] ([place]) Comment on above: Performed By: #### L IPID, CMP, GFR #### [address] [address] Albumin/Globulin [Mass ratio] 1.3 {ratio} Normal 1.1-2.5 [facility] ([place]) Comment on above: Performed By: #### L IPID, CMP, GFR #### [address] [address] ALP [Catalytic activity/Vol] 76 U/L Normal 40-135 [facility] ([place]) Comment on above: Performed By: #### L IPID, CMP, GFR #### [address] [address] ALT [Catalytic activity/Vol] 36 U/L High 10-35 [facility] ([place]) Comment on above: Performed By: #### L IPID, CMP, GFR #### [address] [address] AST [Catalytic activity/Vol] 22 U/L Normal 10-40 [facility] ([place]) Comment on above: Performed By: #### L IPID, CMP, GFR #### [address] [address] Bili Total 0.6 mg/dL Normal 0.2-1.0 [facility] ([place]) Comment on above: Result Comment: Use of this assay is not recommended for patients undergoing treatment with eltrombopag due to the potential for falsely elevated results. Performed By: #### L IPID, CMP, GFR #### [address] [address] Calcium [Mass/Vol] 8.9 mg/dL Normal 8.4-10.2 [facility] ([place]) Comment on above: Performed By: #### L IPID, CMP, GFR #### [address] [address] Chloride [Moles/Vol] 97 mmol/L Low 98-107 [facility] ([place]) Comment on above: Performed By: #### L IPID, CMP, GFR #### [address] [address] CO2 [Moles/Vol] 28 mmol/L Normal 23-31 [facility] ([place]) Comment on above: Performed By: #### L IPID, CMP, GFR #### [address] [address] Creatinine [Mass/Vol] 1.05 mg/dL Normal 0.70-1.30 [facility] ([place]) Comment on above: Performed By: #### L IPID, CMP, GFR #### [address] [address] Electrolyte Balance 8.0 mEq/L Normal [facility] ([place]) Comment on above: Performed By: #### L IPID, CMP, GFR #### [address] [address] Globulin (S) [Mass/Vol] 3.3 G/dL Normal [facility] ([place]) Comment on above: Performed By: #### L IPID, CMP, GFR #### [address] [address] Glucose [Mass/Vol] 99 mg/dL Normal 80-115 [facility] ([place]) Comment on above: Performed By: #### L IPID, CMP, GFR #### [address] [address] Potassium [Moles/Vol] 5.1 mmol/L Normal 3.5-5.1 [facility] ([place]) Comment on above: Performed By: #### L IPID, CMP, GFR #### [address] [address] Protein [Mass/Vol] 7.5 G/dL Normal 6.4-8.2 [facility] ([place]) Comment on above: Performed By: #### L IPID, CMP, GFR #### [address] [address] Sodium [Moles/Vol] 133 mmol/L Low 136-145 [facility] ([place]) Comment on above: Performed By: #### L IPID, CMP, GFR #### [address] [address] Urea nitrogen [Mass/Vol] 13 mg/dL Normal 7-18 [facility] ([place]) Comment on above: Performed By: #### L IPID, CMP, GFR #### [address] [address] Urea nitrogen/Creatinine [Mass ratio] 12 ratio Normal 7-27 [facility] ([place]) Comment on above: Performed By: #### L IPID, CMP, GFR #### [address] [address] LIPIDon 12-30-2019 Cholesterol [Mass/Vol] 111 mg/dL Normal 0-200 [facility] ([place]) Comment on above: Result Comment: Chol esterol Reference Interval: Less than 200 Desirable 200-239 Borderline high risk 240 and above High risk Performed By: #### L IPID, CMP, GFR #### [address] [address] Cholesterol in HDL [Mass/Vol] 54 mg/dL Normal 40-60 [facility] ([place]) Comment on above: Performed By: #### L IPID, CMP, GFR #### [address] [address] Cholesterol in LDL [Mass/Vol] 50 mg/dL Normal 0-130 [facility] ([place]) Comment on above: Performed By: #### L IPID, CMP, GFR #### [facility] [address] [place], [place] [address] Triglyceride [Mass/Vol] 35 mg/dL Normal 0-150 [facility] ([place]) Comment on above: Result Comment: Trig lyceride Reference Interval: Less than 150 Normal 150-199 Borderline high risk 200-499 High risk 500 or higher Very high risk Performed By: #### L IPID, CMP, GFR #### [place] [address] [place], [place] [address] Vital Signs Date Time Vital Sign Value Performing Clinician Facility 01-08-2025 09:51-0400 Body mass index (BMI) [Ratio] 39.99 kg/m2 Veronica Butt PHYSICIAN OPHTHALMOLOGIST-CLINICAL ADMINISTRATOR Work Phone: [facility] 01-08-2025 09:51-0400 Body weight 119.3 kg Veronica Butt PHYSICIAN OPHTHALMOLOGIST-CLINICAL ADMINISTRATOR Work Phone: [facility] 01-08-2025 09:51-0400 Diastolic blood pressure 78 mm[Hg] Veronica Butt PHYSICIAN OPHTHALMOLOGIST-CLINICAL ADMINISTRATOR [facility] 01-08-2025 09:51-0400 Heart rate 73 /min Veronica Johnny PHYSICIAN OPHTHALMOLOGIST-CLINICAL ADMINISTRATOR [facility] 01-08-2025 09:51-0400 SaO2% (BldA) [Mass fraction] 95 % Veronica Butt PHYSICIAN OPHTHALMOLOGIST-CLINICAL ADMINISTRATOR Work Phone: [facility] Comment on above: 01-08-2025 09:51-0400 Systolic blood pressure 128 mm[Hg] Veronica Butt PHYSICIAN OPHTHALMOLOGIST-CLINICAL ADMINISTRATOR [facility] 12-02-2024 13:20-0400 Body temperature 98.01 [degF] Davie Carroll MD Work Phone: [facility] 12-02-2024 13:20-0400 Diastolic blood pressure 78 mm[Hg] Davie Carroll MD Work Phone: [facility] 12-02-2024 13:20-0400 Heart rate 70 /min Davie Carroll MD Work Phone: [facility] 12-02-2024 13:20-0400 Respiratory rate 19 /min Davie Carroll MD Work Phone: [facility] 12-02-2024 13:20-0400 SaO2% (BldA) [Mass fraction] 99 % Davie Carroll MD Work Phone: [facility] 12-02-2024 13:20-0400 Systolic blood pressure 159 mm[Hg] Davie Carroll MD Work Phone: [facility] 11-17-2024 14:08-0400 Body height 174 cm Anna Petruzzi PA-C Work Phone: [facility] 11-17-2024 14:08-0400 Body mass index (BMI) [Ratio] 40.38 kg/m2 Anna Petruzzi PA-C Work Phone: [facility] 11-17-2024 14:08-0400 Body temperature 98.49 [degF] Anna Petruzzi PA-C Work Phone: [facility] 11-17-2024 14:08-0400 Body weight 122.24 kg Anna Petruzzi PA-C Work Phone: [facility] 11-17-2024 14:08-0400 Diastolic blood pressure 67 mm[Hg] Anna Petruzzi PA-C Work Phone: [facility] 11-17-2024 14:08-0400 Heart rate 74 /min Anna Petruzzi PA-C Work Phone: [facility] 11-17-2024 14:08-0400 Respiratory rate 18 /min Anna Petruzzi PA-C Work Phone: [facility] 11-17-2024 14:08-0400 SaO2% (BldA) [Mass fraction] 96 % Anna Petruzzi PA-C Work Phone: [facility] 11-17-2024 14:08-0400 Systolic blood pressure 137 mm[Hg] Anna Sanders PA-C Work Phone: [facility] 10-26-2024 12:02-0400 Diastolic blood pressure 94 mm[Hg] Aura Wagner MD Work Phone: [facility] 10-26-2024 12:02-0400 Heart rate 83 /min Aura Wagner MD Work Phone: [facility] 10-26-2024 12:02-0400 Respiratory rate 31 /min Aura Wagner MD Work Phone: [facility] 10-26-2024 12:02-0400 SaO2% (BldA) [Mass fraction] 90 % Aura Wagner MD Work Phone: [facility] 10-26-2024 12:02-0400 Systolic blood pressure 158 mm[Hg] Aura Wagner MD Work Phone: [facility] 10-26-2024 12:00-0400 Body temperature 98.2 [degF] Aura Wagner MD Work Phone: [facility] 10-25-2024 00:00-0400 Body mass index (BMI) [Ratio] 39.56 kg/m2 Aura Wagner MD Work Phone: [facility] 10-25-2024 00:00-0400 Body weight 121.5 kg Aura Wagner MD Work Phone: [facility] 10-24-2024 20:56-0400 SaO2% (BldA) [Mass fraction] 98 % Aura Wagner MD Work Phone: [facility] 10-24-2024 19:42-0400 Body height 175.3 cm Aura Wagner MD Work Phone: [facility] 08-10-2024 13:00-0500 Body height 175.3 cm Lois Kee MD Work Phone: [facility] 08-10-2024 13:00-0500 Body mass index (BMI) [Ratio] 38.03 kg/m2 Lois Kee MD Work Phone: [facility] 08-10-2024 13:00-0500 Body weight 116.8 kg Lois Kee MD Work Phone: [facility] 08-10-2024 13:00-0500 Diastolic blood pressure 90 mm[Hg] Lois Kee MD Work Phone: [facility] 08-10-2024 13:00-0500 Heart rate 63 /min Lois Kee MD Work Phone: [facility] 08-10-2024 13:00-0500 SaO2% (BldA) [Mass fraction] 97 % Lois Kee MD Work Phone: [facility] 08-10-2024 13:00-0500 Systolic blood pressure 170 mm[Hg] Lois Kee MD Work Phone: [facility] 07-14-2024 13:00-0500 Body height 175.3 [address] P[address] 1 [facility] 07-14-2024 13:00-0500 Body mass index (BMI) [Ratio] 41.05 kg/m2 Pst 1 [facility] 07-14-2024 13:00-0500 Body temperature 97.5 [degF] Pst 1 [facility] 07-14-2024 13:00-0500 Body weight 126.1 kg Pst 1 [facility] 07-14-2024 13:00-0500 Diastolic blood pressure 80 mm[Hg] Pst 1 [facility] Comment on above: manual 07-14-2024 13:00-0500 Heart rate 68 /min Pst 1 [facility] 07-14-2024 13:00-0500 Respiratory rate 18 /min Pst 1 [facility] 07-14-2024 13:00-0500 SaO2% (BldA) [Mass fraction] 97 % Pst 1 [facility] 07-14-2024 13:00-0500 Systolic blood pressure 150 mm[Hg] Pst 1 [facility] Comment on above: manual 06-05-2024 09:08-0500 Body mass index (BMI) [Ratio] 44.71 kg/m2 Lois Kee MD Work Phone: [facility] 06-05-2024 09:08-0500 Body weight 129.5 kg Lois Kee MD Work Phone: [facility] 06-05-2024 09:08-0500 Diastolic blood pressure 84 mm[Hg] Lois Kee MD Work Phone: [facility] 06-05-2024 09:08-0500 Heart rate 72 /min Lois Kee MD Work Phone: [facility] 06-05-2024 09:08-0500 Respiratory rate 20 /min Lois Kee MD Work Phone: [facility] 06-05-2024 09:08-0500 SaO2% (BldA) [Mass fraction] 96 % Lois Kee MD Work Phone: [facility] 06-05-2024 09:08-0500 Systolic blood pressure 161 mm[Hg] Lois Kee MD Work Phone: [facility] 05-10-2024 08:16-0400 Diastolic blood pressure 67 mm[Hg] Evreton Decker MD Work Phone: [facility] 05-10-2024 08:16-0400 Heart rate 69 /min Everton Decker MD Work Phone: [facility] 05-10-2024 08:16-0400 Respiratory rate 18 /min Everton Decker MD Work Phone: [facility] 05-10-2024 08:16-0400 SaO2% (BldA) [Mass fraction] 98 % Everton Decker MD Work Phone: [facility] 05-10-2024 08:16-0400 Systolic blood pressure 156 mm[Hg] Everton Decker MD Work Phone: [facility] 04-26-2024 08:23-0400 Diastolic blood pressure 98 mm[Hg] Everton Decker MD Work Phone: [facility] 04-26-2024 08:23-0400 Heart rate 68 /min Everton Decker MD Work Phone: [facility] 04-26-2024 08:23-0400 Respiratory rate 18 /min Everton Decker MD Work Phone: [facility] 04-26-2024 08:23-0400 SaO2% (BldA) [Mass fraction] 98 % Everton Decker MD Work Phone: [facility] 04-26-2024 08:23-0400 Systolic blood pressure 178 mm[Hg] Everton Decker MD Work Phone: [facility] 04-06-2024 09:11-0400 Body height 170.2 cm Lois Kee MD Work Phone: [facility] 04-06-2024 09:11-0400 Body mass index (BMI) [Ratio] 44.37 kg/m2 Lois Kee MD Work Phone: [facility] 04-06-2024 09:11-0400 Body weight 128.5 kg Lois Kee MD Work Phone: [facility] 04-06-2024 09:11-0400 Diastolic blood pressure 89 mm[Hg] Lois Kee MD Work Phone: [facility] 04-06-2024 09:11-0400 Heart rate 74 /min Lois Kee MD Work Phone: [facility] 04-06-2024 09:11-0400 Respiratory rate 18 /min Lois Kee MD Work Phone: [facility] 04-06-2024 09:11-0400 SaO2% (BldA) [Mass fraction] 98 % Lois Kee MD Work Phone: [facility] 04-06-2024 09:11-0400 Systolic blood pressure 154 mm[Hg] Lois Kee MD Work Phone: [facility] 03-16-2024 11:16-0400 Diastolic blood pressure 77 mm[Hg] Everton Decker MD Work Phone: [facility] 03-16-2024 11:16-0400 Heart rate 71 /min Everton Decker MD Work Phone: [facility] 03-16-2024 11:16-0400 Respiratory rate 18 /min Everton Decker MD Work Phone: [facility] 03-16-2024 11:16-0400 SaO2% (BldA) [Mass fraction] 97 % Everton Decker MD Work Phone: [facility] 03-16-2024 11:16-0400 Systolic blood pressure 178 mm[Hg] Everton Decker MD Work Phone: [facility] 12-21-2023 19:11-0400 Body height 170.2 cm Yashira Gonsales PHYSICIAN OPHTHALMOLOGIST.CLINICAL ADMINISTRATOR Work Phone: [facility] 12-21-2023 19:11-0400 Body mass index (BMI) [Ratio] 43.54 kg/m2 Yashira Gonsales APRN.CLINICAL ADMINISTRATOR Work Phone: [facility] 12-21-2023 19:11-0400 Body weight 126.1 kg Yashira Gonsales APRN.CLINICAL ADMINISTRATOR Work Phone: [facility] 12-16-2023 10:56-0400 Diastolic blood pressure 89 mm[Hg] Dhiraj Herr MD Work Phone: [facility] 12-16-2023 10:56-0400 Heart rate 66 /min Dhiraj Herr MD Work Phone: [facility] 12-16-2023 10:56-0400 Respiratory rate 16 /min Dhiraj Herr MD Work Phone: [facility] 12-16-2023 10:56-0400 SaO2% (BldA) [Mass fraction] 97 % Dhiraj Herr MD Work Phone: [facility] 12-16-2023 10:56-0400 Systolic blood pressure 154 mm[Hg] Dhiraj Herr MD Work Phone: [facility] 11-11-2023 09:39-0400 Body height 170.2 cm Shelton Aguilera MD Work Phone: [facility] 11-11-2023 09:39-0400 Body mass index (BMI) [Ratio] 43.54 kg/m2 Shelton Aguilera MD Work Phone: [facility] 11-11-2023 09:39-0400 Body temperature 98.01 [degF] Shelton Aguilera MD Work Phone: [facility] 11-11-2023 09:39-0400 Body weight 126.1 kg Shelton Aguilera MD Work Phone: [facility] 11-11-2023 09:39-0400 Diastolic blood pressure 91 mm[Hg] Shelton Aguilera MD Work Phone: [facility] 11-11-2023 09:39-0400 Heart rate 75 /min Shelton Aguilera MD Work Phone: [facility] 11-11-2023 09:39-0400 Respiratory rate 20 /min Shelton Aguilera MD Work Phone: [facility] 11-11-2023 09:39-0400 SaO2% (BldA) [Mass fraction] 95 % Shelton Aguilera MD Work Phone: [facility] 11-11-2023 09:39-0400 Systolic blood pressure 163 mm[Hg] Shelton Aguilera MD Work Phone: [facility] 10-28-2023 10:03-0400 Diastolic blood pressure 94 mm[Hg] Dhiraj Herr MD Work Phone: [facility] 10-28-2023 10:03-0400 Heart rate 70 /min Dhiraj Herr MD Work Phone: [facility] 04-11-2024 10:03-0400 Respiratory rate 16 /min Dhiraj Herr MD Work Phone: [facility] 10-28-2023 10:03-0400 SaO2% (BldA) [Mass fraction] 96 % Dhiraj Herr MD Work Phone: [facility] 10-28-2023 10:03-0400 Systolic blood pressure 151 mm[Hg] Dhiraj Herr MD Work Phone: [facility] 09-23-2023 08:06-0500 Heart rate 74 /min Bertha Prebish PHYSICIAN OPHTHALMOLOGIST.CLINICAL ADMINISTRATOR Work Phone: [facility] 09-23-2023 08:06-0500 Respiratory rate 20 /min Bertha Prebish PHYSICIAN OPHTHALMOLOGIST.CLINICAL ADMINISTRATOR Work Phone: [facility] 09-23-2023 08:06-0500 SaO2% (BldA) [Mass fraction] 99 % Bertha Prebish PHYSICIAN OPHTHALMOLOGIST.CLINICAL ADMINISTRATOR Work Phone: [facility] 03-22-2022 12:55-0400 Heart rate 84 /min [facility] Work Phone: 03-22-2022 12:55-0400 Respiratory rate 17 /min [facility] Work Phone: 03-22-2022 12:55-0400 SaO2% (BldA) [Mass fraction] 99 % [facility] Work Phone: 03-22-2022 11:13-0400 Body height 175.[address] [facility] Work Phone: 03-22-2022 11:13-0400 Body mass index (BMI) [Ratio] 36 kg/m2 [facility] Work Phone: 03-22-2022 11:13-0400 Body temperature 97.4 [degF] [facility] Work Phone: 03-22-2022 11:13-0400 Body weight 110.[address] [facility] Work Phone: 03-22-2022 11:13-0400 Diastolic blood pressure 77 mm[Hg] [facility] Work Phone: 03-22-2022 11:13-0400 Systolic blood pressure 160 mm[Hg] [facility] Work Phone: Encounters Encounter Date Encounter Type Care Provider Facility Start: 02-01-2025 End: 02-01-2025 Telephone encounter Veronica Butt [place] [facility] Comment on above: PFT Appt Start: 01-08-2025 End: 01-08-2025 Office outpatient visit 40 minutes Veronica Butt SEAN-CLINICAL ADMINISTRATOR Work Phone: [facility] Comment on above: Reactive airway dise ase without complication, unspecified asthma severity, unspecified whether persistent (HCC) (Primary Dx); Pulmonary nodule seen on imaging study; Environmental and seasonal allergies; Tobacco use disorder; Body mass index (BMI) 39.0-39.9, adult Start: 01-08-2025 End: 01-08-2025 ambulatory UNKNOWN PROVIDER Facility:[facility] Start: 12-25-2024 End: 12-25-2024 Letter encounter Malena Alejandro RN [facility] Start: 12-25-2024 End: 12-25-2024 Telephone encounter Malena Alejandro RN [facility] Comment on above: APPOINTMENT SCHEDULI NG Start: 12-07-2024 End: 12-07-2024 Evaluation and management of inpatient PROVIDER NON-EPICCARE Facility:[facility] Start: 12-02-2024 End: 12-02-2024 Emergency department patient visit Davie Carroll MD Work Phone: [facility] Comment on above: Headache (JIN x24 hrs w/ vision changes ) Start: 12-02-2024 ambulatory PROVIDER NON-EPICCARE Facility:[facility] Start: 12-02-2024 Emergency department patient visit PROVIDER NON-EPICCARE Facility:[facility] Start: 11-24-2024 End: 11-24-2024 ambulatory Brooke Wu RN [facility]Patient Access Comment on above: COPD FU CALL-CONTACT REACHED Start: 11-17-2024 End: 11-18-2024 Office outpatient new 45 minutes Anna Sanders PA-C Work Phone: [facility] Comment on above: COPD exacerbation (H CC) (Primary Dx); 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 artery (HCC); Gastroesophageal reflux disease with esophagitis without hemorrhage Start: 11-17-2024 End: 11-18-2024 ambulatory Brooke Wu RN [facility] Comment on above: COPD FU CALL-UNABLE TO LEAVE MESSAGE Start: 11-01-2024 End: 11-01-2024 Telephone encounter Karthik Fried RT [facility] Comment on above: Pulm Rehab referral Start: 10-27-2024 End: 10-27-2024 ambulatory Brooke Wu RN [facility] Start: 10-27-2024 End: 10-27-2024 Follow-up encounter Brooke Wu RN [facility] Comment on above: Hospital follow-up; Transitional Care Management (COPD DC 10/26/24) Start: 10-26-2024 End: 10-26-2024 Orders Only Aura Wagner MD Work Phone: [facility] Start: 10-25-2024 End: 12-25-2024 Follow-up encounter Pilar Snell Replaced by [facility] Start: 10-24-2024 End: 10-26-2024 Evaluation and management of inpatient Aura Wagner MD Work Phone: [address] Comment on above: COPD exacerbation (H CC) (Primary Dx); 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 artery (HCC); Exacerbation of intermittent asthma, unspecified asthma severity (HCC); Difficulty walking; Decreased mobility and endurance Start: 10-24-2024 End: 10-24-2024 Emergency department patient visit PILAR STEELE Facility:[facility] Start: 10-24-2024 Evaluation and management of inpatient BRIAN ANGLIN Facility:[facility] Start: 09-12-2024 End: 09-12-2024 ambulatory Varun Pratt PT Work Phone: [facility] Comment on above: S/P lumbar laminecto my (Primary Dx) Start: 09-05-2024 End: 09-05-2024 Telephone encounter Lois Kee MD Work Phone: [facility] Start: 08-28-2024 End: 08-28-2024 Telephone encounter Lois Kee MD Work Phone: [facility] Comment on above: Internal Referrals/r esources Start: 08-25-2024 End: 08-25-2024 Orders Only Lois Kee MD Work Phone: [facility] Comment on above: S/P lumbar laminecto my (Primary Dx) Start: 08-10-2024 End: 08-10-2024 Postop follow up visit related to original px Lois Kee MD Work Phone: [facility] Comment on above: S/P lumbar laminecto my (Primary Dx) Start: 08-10-2024 End: 08-10-2024 ambulatory [facility] Start: 08-02-2024 End: 08-02-2024 Refill Lois Kee MD Work Phone: [facility] Comment on above: Refill Request Start: 07-28-2024 End: 07-29-2024 Evaluation and management of inpatient [facility] Facility:[facility] Start: 07-27-2024 End: 07-27-2024 Telephone encounter Lois Kee MD Work Phone: [facility] Comment on above: Preparations For Sukhjinder jen Start: 07-20-2024 End: 07-21-2024 Telephone encounter Shelton Aguilera MD Work Phone: [facility] Comment on above: Medical Clearance Start: 07-17-2024 End: 07-17-2024 Telephone encounter oPlly Mcfarlane APRN.CLINICAL ADMINISTRATOR Work Phone: [place] [facility] Start: 07-14-2024 End: 07-14-2024 Preprocedural examination done Pst 1 [facility] Work Phone: Start: 07-14-2024 End: 07-14-2024 Orders Only Lois Kee MD Work Phone: [facility] Comment on above: Spinal stenosis of [...] examination done Lois Kee MD Work Phone: [facility] Start: 07-10-2024 Encounter for other preprocedural examination [facility] Start: 06-21-2024 End: 06-21-2024 Telephone encounter Lois Kee MD Work Phone: [facility] Comment on above: Preparations For Sukhjinder jen Start: 06-19-2024 End: 06-19-2024 Orders Only Lois Kee MD Work Phone: [facility] Comment on above: Spinal stenosis of l umbar region with neurogenic claudication (Primary Dx) Start: 06-08-2024 End: 06-08-2024 Telephone encounter Shelton Aguilera MD Work Phone: Pulmonary Medicine Comment on above: FYI-No Action Needed Start: 06-08-2024 End: 06-08-2024 ambulatory [facility] Facility:[facility] Start: 06-08-2024 End: 06-08-2024 Subsequent hospital visit by physician [facility] Wstr (I-Stat) Work Phone: Cat Scan Start: 06-05-2024 End: 06-05-2024 Office outpatient visit 25 minutes Lois Kee MD Work Phone: [facility] Comment on above: Spinal stenosis of l umbar region with neurogenic claudication (Primary Dx) Start: 06-05-2024 End: 06-05-2024 ambulatory [facility] Start: 06-05-2024 End: 06-05-2024 Subsequent hospital visit by physician [facility] [place] Documentation Coordinator [facility] [employer] CLAIMS REPRESENT[employer]IVE Comment on above: Low back pain, unspe cified back pain laterality, unspecified chronicity, unspecified whether sciatica present [M54.50] Start: 05-31-2024 End: 05-31-2024 Telephone encounter Shelton Aguilera MD Work Phone: Pulmonary Medicine Comment on above: FYI-No Action Needed Start: 05-11-2024 End: 05-11-2024 ambulatory [facility] Start: 05-11-2024 End: 05-11-2024 Patient encounter procedure Bertha Schumacher APRN.CLINICAL ADMINISTRATOR Work Phone: [facility] Comment on above: APPOINTMENT CANCELLE D (Primary Dx) Start: 05-11-2024 End: 05-11-2024 Telemedicine consultation with patient Bertha Schumacher APRN.CLINICAL ADMINISTRATOR Work Phone: [facility] Start: 05-10-2024 End: 05-10-2024 Patient encounter procedure Everton Decker MD Work Phone: [facility] Start: 05-10-2024 End: 05-10-2024 ambulatory Everton Decker MD Work Phone: [facility] Comment on above: Injections (MBB); Ba ck Pain (LOWER BILATERAL) Start: 04-27-2024 End: 04-27-2024 Telemedicine consultation with patient Bertha Schumacher APRN.CLINICAL ADMINISTRATOR Work Phone: [facility] Start: 04-27-2024 End: 04-27-2024 ambulatory Bertha Schumacher APRNCoraCLINICAL ADMINISTRATOR Work Phone: [facility] Comment on above: Lumbar spondylosis ( Primary Dx); Spinal stenosis, lumbar region, without neurogenic claudication Start: 04-27-2024 End: 04-28-2024 Telephone encounter Guanaco Razo MD, PhD Work Phone: [facility] Comment on above: Erroneous encounter- disregard Start: 04-26-2024 End: 04-26-2024 Patient encounter procedure Everton Decker MD Work Phone: [facility] Start: 04-26-2024 End: 04-26-2024 ambulatory Everton Decker MD Work Phone: [facility] Comment on above: Procedure (MBB) Start: 04-06-2024 End: 04-06-2024 Office outpatient new 45 minutes Lois Kee MD Work Phone: [facility] Comment on above: Low back pain, unspe cified back pain laterality, unspecified chronicity, unspecified whether sciatica present (Primary Dx) Start: 04-06-2024 End: 04-06-2024 ambulatory [facility] Facility:[facility] Start: 04-05-2024 End: 04-05-2024 E-mail encounter from caregiver Lois Kee MD Work Phone: [facility] Start: 04-05-2024 End: 04-05-2024 Patient encounter procedure Lois Kee MD Work Phone: [facility] Comment on above: xrays for upcoming a ppointment Start: 03-31-2024 End: 03-31-2024 Telephone encounter Dhiraj Herr MD Work Phone: [facility] Comment on above: injection questions Start: 03-30-2024 End: 03-30-2024 Telephone encounter Dhiraj Herr MD Work Phone: [facility] Comment on above: Appointment Start: 03-30-2024 End: 03-30-2024 Telemedicine consultation with patient Bertha Schumacher APRN.CLINICAL ADMINISTRATOR Work Phone: [facility] Start: 03-30-2024 End: 03-30-2024 ambulatory Bertha Schumacher APRN.CLINICAL ADMINISTRATOR Work Phone: [facility] Comment on above: Lumbar spondylosis ( Primary Dx); Lumbar radiculopathy; Spinal stenosis, lumbar region, without neurogenic claudication Start: 03-17-2024 End: 03-17-2024 Telephone encounter Everton Decker MD Work Phone: [facility] Comment on above: Procedure Follow Up Start: 03-16-2024 End: 03-16-2024 Telephone encounter Bertha Schumacher APRN.CLINICAL ADMINISTRATOR Work Phone: [facility] Comment on above: Orders Start: 03-16-2024 End: 03-16-2024 Patient encounter procedure Everton Decker MD Work Phone: [facility] Start: 03-16-2024 End: 03-16-2024 ambulatory Everton Decker MD Work Phone: [facility] Comment on above: Procedure Start: 03-15-2024 End: 03-15-2024 Telephone encounter Everton Decker MD Work Phone: [facility] Comment on above: Patient Question Start: 03-13-2024 End: 03-13-2024 Telephone encounter Yashira Gonsales APRN.CLINICAL ADMINISTRATOR Work Phone: [facility] Comment on above: Insurance Denial Start: 02-25-2024 Telephone encounter Bertha rees APRN.CLINICAL ADMINISTRATOR Work Phone: [facility] Comment on above: Appointment anticoagulation marta er Injections (question s) Start: 02-24-2024 End: 02-24-2024 Telemedicine consultation with patient Bertha Vincent ESTRADA.CLINICAL ADMINISTRATOR Work Phone: [facility] Start: 02-24-2024 End: 02-24-2024 ambulatory Bertha Childssh PHYSICIAN OPHTHALMOLOGIST.CLINICAL ADMINISTRATOR Work Phone: [facility] Comment on above: Lumbar spondylosis ( Primary Dx); Spinal 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; Chronic bilateral low back pain with sciatica, sciatica laterality unspecified Start: 01-24-2024 ambulatory Bertha Catherinesh PHYSICIAN OPHTHALMOLOGIST.CLINICAL ADMINISTRATOR Work Phone: [facility] Comment on above: Denial of Medical Se rvice Start: 01-17-2024 Telephone encounter Shelton Aguilera MD Work Phone: Pulmonology [facility] Comment on above: Illness (Paterson RN covering urgent pulm sypmtom calls) Start: 01-16-2024 End: 01-16-2024 Letter encounter [facility] Start: 01-11-2024 Refill Shelton Aguilera MD Work Phone: Pulmonary Medicine Comment on above: Refill Request Start: 01-06-2024 Refill Shelton Aguilera MD Work Phone: Pulmonary Medicine Comment on above: Refill Request Start: 01-03-2024 Telephone encounter Alen raza MD Work Phone: Pulmonary Medicine Comment on above: Results Start: 12-29-2023 [facility] Start: 12-29-2023 End: 12-29-2023 Subsequent hospital visit by physician [facility] Work Phone: [facility] Comment on above: Lung nodules [R91.8] Start: 12-22-2023 End: 12-22-2023 Telemedicine consultation with patient Yashira Gonsales PHYSICIAN OPHTHALMOLOGIST.CLINICAL ADMINISTRATOR Work Phone: [facility] Start: 12-22-2023 End: 12-22-2023 ambulatory Yashira Gonsales PHYSICIAN OPHTHALMOLOGIST.CLINICAL ADMINISTRATOR Work Phone: [facility] Comment on above: Lumbar spondylosis ( Primary Dx) Start: 12-17-2023 Telephone encounter Dhiraj Herr MD Work Phone: [facility] Comment on above: Procedure Follow Up (MBB) Start: 12-16-2023 End: 12-16-2023 Patient encounter procedure Dhiraj Herr MD Work Phone: [facility] Start: 12-16-2023 End: 12-16-2023 ambulatory Dhiraj Herr MD Work Phone: [facility] Comment on above: Procedure (Mbb ); Ba ck Pain (Lower - bilateral - right is worse) Start: 12-14-2023 Telephone encounter Bertha rees PHYSICIAN OPHTHALMOLOGIST.CLINICAL ADMINISTRATOR Work Phone: [facility] Comment on above: Insurance Denial Start: 12-10-2023 Orders Only Shelton Aguilera MD Work Phone: Pulmonary Medicine Comment on above: Severe persistent as thma, unspecified whether complicated (Primary Dx) Start: 12-01-2023 End: 12-02-2023 ambulatory [facility] Facility:[facility] Start: 11-29-2023 ambulatory Bertha Prebish PHYSICIAN OPHTHALMOLOGIST.CLINICAL ADMINISTRATOR Work Phone: [facility] Start: 11-29-2023 Patient encounter procedure Bertha Prebish PHYSICIAN OPHTHALMOLOGIST.CLINICAL ADMINISTRATOR Work Phone: [facility] Comment on above: Appointment Start: 11-25-2023 End: 11-25-2023 Telemedicine consultation with patient Bertha Prebish PHYSICIAN OPHTHALMOLOGIST.CLINICAL ADMINISTRATOR Work Phone: [facility] Start: 11-25-2023 End: 11-25-2023 ambulatory Bertha Prebish PHYSICIAN OPHTHALMOLOGIST.CLINICAL ADMINISTRATOR Work Phone: [facility] Comment on above: Lumbar spondylosis ( Primary Dx); Spinal 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 Start: 11-22-2023 ambulatory [facility] Comment on above: Home Sleep Study Start: 11-22-2023 E-mail encounter raya m caregiver [facility] Start: 11-21-2023 Telephone encounter Bertha rees PHYSICIAN OPHTHALMOLOGIST.CLINICAL ADMINISTRATOR Work Phone: [facility] Start: 11-19-2023 End: 11-19-2023 Subsequent hospital visit by physician [facility] (I-Stat/1.5t) Radiology Comment on above: [...] Start: 10-29-2023 End: 10-29-2023 ambulatory Bertha Schumacher SEAN.CLINICAL ADMINISTRATOR Work Phone: [facility] Comment on above: Lumbar spondylosis ( Primary Dx); Chronic bilateral low back pain with sciatica, sciatica laterality unspecified; Spinal 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 Start: 10-29-2023 End: 10-29-2023 Telemedicine consultation with patient Bertha Schumacher APRN.CLINICAL ADMINISTRATOR Work Phone: [facility] [address] Start: 10-28-2023 End: 10-28-2023 ambulatory Dhiraj Herr MD Work Phone: [facility] Comment on above: Procedure (MBNB L4/L 5 S1) Start: 10-28-2023 End: 10-28-2023 Patient encounter procedure Dhiraj Herr MD Work Phone: [facility] [facility] Start: 10-19-2023 Refill Shelton Aguilera MD Work Phone: Pulmonary Medicine Comment on above: Refill Request Start: 10-11-2023 Refill Shelton Aguilera MD Work Phone: Pulmonary Medicine Comment on above: Refill Request Start: 09-28-2023 ambulatory Bertha Schumacher PHYSICIAN OPHTHALMOLOGIST.CLINICAL ADMINISTRATOR Work Phone: [facility] Comment on above: Prednisone for pain relief Start: 09-23-2023 Telephone encounter Berthasandrine rees PHYSICIAN OPHTHALMOLOGIST.CLINICAL ADMINISTRATOR Work Phone: [facility] Comment on above: Injection Questions Start: 09-23-2023 End: 09-23-2023 Office outpatient new 45 minutes Bertha Schumacher PHYSICIAN OPHTHALMOLOGIST.CLINICAL ADMINISTRATOR Work Phone: [facility] Comment on above: Lumbar spondylosis ( Primary Dx); Chronic bilateral low back pain with sciatica, sciatica laterality unspecified Start: 09-02-2023 ambulatory UNKNOWN PROVIDER Facili ty:[facility] Start: 09-02-2023 End: 09-02-2023 Subsequent hospital visit by physician Ct [facility] Radiology Comment on above: Wheezing [R06.2] Start: 09-02-2023 End: 09-02-2023 ambulatory [facility] Work Phone: Pulmonary Medicine Comment on above: Spirometry Start: 09-02-2023 End: 09-02-2023 Patient encounter procedure Pulm [facility] Work Phone: [facility] Start: 08-26-2023 Telephone encounter Shelton Aguilera MD Work Phone: Pulmonary Medicine Comment on above: Results Start: 08-24-2023 Telephone encounter Shelton Aguilera MD Work Phone: Pulmonary Medicine Comment on above: FYI-No Action Needed Results Start: 08-20-2023 Telephone encounter Shelton Aguilera MD Work Phone: Pulmonary Medicine Comment on above: FYI-No Action Needed Start: 08-20-2023 End: 08-20-2023 ambulatory [facility] [place] Work Phone: Pulmonary Medicine Comment on above: Spirometry Start: 08-20-2023 End: 08-20-2023 Patient encounter procedure [facility] [place] Work Phone: [facility] [place] [facility] Start: 08-04-2023 End: 08-04-2023 ambulatory [facility] Work Phone: Start: 08-04-2023 End: 08-04-2023 Patient encounter procedure [facility]Rad[facility], [facility] Work Phone: Start: 06-11-2023 End: 06-11-2023 ambulatory Juarez Dewitt Facility:[facility] Start: 06-11-2023 Registered Recurring [facility] Work Phone: Start: 02-24-2023 Encounter for genera l adult medical examination without abnormal findings [facility] Start: 02-20-2023 End: 02-20-2023 ambulatory [facility] Work Phone: Start: 02-20-2023 End: 02-20-2023 Patient encounter procedure [facility]Labor[facility] Work Phone: Start: 10-26-2022 Letter encounter [facility] Start: 03-22-2022 End: 03-22-2022 Emergency department patient visit [facility]Emergency Department Start: 02-07-2022 End: 02-07-2022 Patient encounter procedure [facility] Start: 01-31-2022 End: 01-31-2022 Patient encounter procedure [facility] Start: 10-20-2021 Letter encounter [facility] Procedures Date Procedure Procedure Detail Performing Clinician Start: 01-08-2025 Assay of gammaglobulin ige Veronica Butt APRN-CLINICAL ADMINISTRATOR Work Phone: Start: 01-08-2025 Inhaled allergen mix RAST Veronica Butt APRN-CLINICAL ADMINISTRATOR Work Phone: Start: 12-02-2024 Ct angiography head [...] Speci men Type: BLOOD SPECIMEN [facility]ing [facility] Address: [address] [place] [id number] Performed By: #### T [id number] #### [facility] CLIA [id number] 1 [place] [address] [place] Start: 06-08-2024 Ct thorax w/o contra st material [facility] Start: 12-29-2023 Echo tthrc r-t 2d w/wom-mode compl spec&colr d Shelton Aguilera MD Work Phone: Start: 11-19-2023 Mri spinal canal lum bar w/o contrast material Bertha Schumacher PHYSICIAN OPHTHALMOLOGIST.CLINICAL ADMINISTRATOR Work Phone: Start: 09-02-2023 Nitric oxide gas [...] panel - S tara or Plasma [facility] [place] Work Phone: Plan of Treatment Date Care Activity Detail Author Start: 06-14-2033 Tetanus vaccination Tetanus (Td or Tdap) Booster [facility] Start: 06-14-2033 Urine microalbumin profile DTaP,Tdap,Td Vaccine (2 - Td or Tdap) [facility] Start: 02-21-2028 Lipid panel Cholesterol [facility] Start: 10-26-2027 Diabetes Screening Diabetes Screening [facility] Start: 07-29-2027 Diabetes Screening Diabetes Screening [facility] Start: 07-14-2027 Diabetes Screening Diabetes Screening [facility] Start: 12-01-2026 Diabetes Screening Diabetes Screening [facility] Start: 10-24-2025 Hemoglobin A1c measurement Hemoglobin A1C [facility] Start: 07-23-2025 End: 07-23-2025 Patient encounter procedure 07/23/2025 8:20 AM EST Office Visit [facility] Pulmonary [address] [place] [address] Veronica Butt APRN-CLINICAL ADMINISTRATOR [address] [place] [address] [facility] Start: 05-21-2025 End: 05-21-2025 Patient encounter procedure 05/21/2025 8:00 AM EST Appointment [facility] Radiology CT [address] [place] [address] [facility] [address] Start: 05-19-2025 End: 01-08-2026 CT Chest WO contrast CT CHEST W/O CONTRAST Imaging Routine Pulmonary nodule seen on imaging study Expected: 05/19/2025 (Approximate), Expires: 01/08/2026 [facility] Work Phone: Comment on above: Expected: 05/19/2025 (Approximate), Expi res: 01/08/2026 Start: 04-18-2025 Influenza vaccination Influenza Vaccine (#1) [facility] Start: 03-19-2025 Influenza vaccination Influenza Vaccine (Season Ended) [facility] Start: 02-02-2025 End: 02-02-2025 Professional / ancillary services management 02/02/2025 8:00 AM EDT Pulmonary Ancillary Visit [facility] [address] [place] [address] [facility] Start: 01-18-2025 End: 01-18-2025 Patient encounter procedure 01/18/2025 9:40 AM EDT Office Visit [facility] [address] [place] [address] Anna Sanders PA-C [address] [place] [address] [facility] Start: 01-08-2025 End: 01-08-2025 Patient encounter procedure 01/08/2025 10:20 AM EDT Office Visit [facility] [address] [place] [address] Veronica Butt APRN-CLINICAL ADMINISTRATOR [address] [place] [address] [facility] Start: 11-17-2024 End: 11-17-2024 Patient encounter procedure 11/17/2024 2:00 PM EDT Office Visit [facility] [address] [place] [address] Anna Sanders PA-C [address] [place] [address] [facility] Start: 10-24-2024 Welcome to Medicare Visit (G0402) Welcome to Medicare Visit (G0402) [facility] Start: 10-19-2024 End: 10-19-2024 Patient encounter procedure [facility] [employer] CLAIMS REPRESENTATIVE Comment on above: S/P lumbar laminectomy [Z98.890] Start: 09-18-2024 End: 09-18-2024 Patient encounter procedure 09/18/2024 9:15 AM EST Office Visit [place] [id number] [place] [address] Lois Kee MD [address] [place] [address] post op [facility] Comment on above: post op Start: 09-14-2024 End: 09-14-2024 Patient encounter procedure 09/14/2024 2:15 PM EST Office Visit [address] [facility] [address] Lois Kee MD [address] [place] [address] post op [facility] Comment on above: post op Start: 09-12-2024 End: 09-12-2024 ambulatory 09/12/2024 8:30 AM EST OT/PT/Speech Visit [place] [facility] Physical Therapy [address] [place] [address] Varun Pratt, PT [address] [place] [address] S/P lumbar laminectomy [Z98.890 [facility] Comment on above: S/P lumbar laminectomy [Z98.890 Start: 08-10-2024 End: 08-10-2024 Patient encounter procedure 08/10/2024 1:00 PM EST Office Visit [address] [place] [place] [address] Lois Kee MD [address] [place], [place] [address] [place] [address] post op [facility] Comment on above: post op Start: 07-28-2024 End: 07-28-2024 Admission to same day surgery center 07/28/2024 10:45 AM EST - 07/28/2024 1:30 PM EST Surgery [place] SUR[place]ERY OR 1 [facility] [place] [address] Lois Kee MD 2 [facility] [place] [address] DECOMPRESSION LAMINECTOMY LUMBAR POSTERIOR LEVEL 1 [place] [...] EST Hospital Encounter [place] SUR[place]ERY [place] 1 [facility] [place] [address] Lois Kee MD [address] [place] [address] Spinal stenosis of lumbar region with neurogenic claudication [M48.062] [place] [facility] [place] Comment on above: Spinal stenosis of lumbar region with ne urogenic claudication [M48.062] Start: 07-19-2024 Advance Directive Discussion Advance Directive Discussion [facility] Start: 07-14-2024 End: 10-13-2024 aPTT in Platelet poor plasma by Coagulation assay ACTIVATED PARTIAL THROMBOPLASTIN TIME Lab Routine Spinal stenosis of lumbar region with neurogenic claudication Abnormal coagulation profile Expected: 07/14/2024, Expires: 10/13/2024 [facility] Comment on above: Expected: 07/14/2024, Expires: Start: 07-14-2024 End: 10-13-2024 Bacteria identified in Urine by Culture URINE CULTURE Microbiology Routine Spinal stenosis of lumbar region with neurogenic claudication Other abnormal findings in urine Expected: 07/14/2024, Expires: 10/13/2024 [facility] Comment on above: Expected: 07/14/2024, Expires: Start: 07-14-2024 End: 10-13-2024 CBC panel - Blood by Automated count COMPLETE BLOOD COUNT Lab Routine Spinal stenosis of lumbar region with neurogenic claudication Other specified abnormal findings of blood chemistry Expected: 07/14/2024, Expires: 10/13/2024 [facility] Comment on above: Expected: 07/14/2024, Expires: Start: 07-14-2024 End: 10-13-2024 Comprehensive metabolic 2000 panel - Serum or Plasma COMPREHENSIVE METABOLIC PANEL Lab Routine Spinal stenosis of lumbar region with neurogenic claudication Expected: 07/14/2024, Expires: 10/13/2024 [facility] Comment on above: Expected: 07/14/2024, Expires: Start: 07-14-2024 End: 10-13-2024 PT panel - Platelet poor plasma by Coagulation assay PROTHROMBIN TIME Lab Routine Spinal stenosis of lumbar region with neurogenic claudication Abnormal coagulation profile Expected: 07/14/2024, Expires: 10/13/2024 [facility] Comment on above: Expected: 07/14/2024, Expires: Start: 07-14-2024 End: 10-13-2024 STAPHYLOCOCCUS AUREUS & MRSA SCREEN, PCR, NASAL STAPHYLOCOCCUS AUREUS & MRSA SCREEN, PCR, NASAL Lab Routine Spinal stenosis of lumbar region with neurogenic claudication Expected: 07/14/2024, Expires: 10/13/2024 [facility] Comment on above: Expected: 07/14/2024, Expires: Start: 07-14-2024 End: 10-13-2024 TYPE AND SCREEN,30 DAY TYPE AND SCREEN,30 DAY Blood Bank Routine Spinal stenosis of lumbar region with neurogenic claudication Expected: 07/14/2024, Expires: 10/13/2024 [facility] Comment on above: Expected: 07/14/2024, Expires: Start: 07-14-2024 End: 10-13-2024 Urinalysis complete panel - Urine URINALYSIS, WITH MICROSCOPIC Lab Routine Spinal stenosis of lumbar region with neurogenic claudication Expected: 07/14/2024, Expires: 10/13/2024 [facility] Comment on above: Expected: 07/14/2024, Expires: Start: 07-14-2024 End: 07-14-2024 ambulatory 07/14/2024 1:00 PM EST PAT Pre Surgical Testing [address] [place] [address] L2-L4 Laminectomy Pre Surgical Testing Comment on above: L2-L4 Laminectomy Start: 06-08-2024 End: 06-08-2024 Patient encounter procedure 06/08/2024 8:00 AM EST Appointment Cat Scan [address] [address] CT chest w/o in scanned docs Cat Scan Comment on above: CT chest w/o in scanned docs Start: 06-06-2024 End: 06-06-2024 Patient encounter procedure [facility] [employer] CLAIMS REPRESENTATIVE Comment on above: XR LUMBAR 2 MO F/U Start: 06-05-2024 End: 06-05-2024 Patient encounter procedure [facility] [employer] CLAIMS REPRESENTATIVE Comment on above: XR LUMBAR 2 MO F/U XR LUMBAR AP/LAT/FLE X/EXT Start: 05-11-2024 End: 05-11-2024 Follow-up encounter 05/11/2024 3:15 PM EDT [facility] [address] [place] [address] Bertha Schumacher APRN.CLINICAL ADMINISTRATOR [address] [place] [address] MBB follow up 2 of 2 [facility] Comment on above: MBB follow up 2 of 2 Start: 05-10-2024 End: 05-10-2024 ambulatory [facility] Comment on above: B/L MBNB L3-L4, L4-L5, w fluoro Medial Branch Block (Diagnostic only, NO STEROIDS) under fluoroscopic guidance BILATERAL SIDES at L3-4 and L4-5 (2 OF 2) Start: 04-27-2024 End: 04-27-2024 Follow-up encounter 04/27/2024 3:15 PM EDT [facility] [address] [place] [address] Bertha Schumacher APRN.CLINICAL ADMINISTRATOR [address] [place] [address] MBB follow up 1 of 2 [facility] Comment on above: MBB follow up 1 of 2 Start: 04-26-2024 End: 04-26-2024 ambulatory 04/26/2024 7:50 AM EDT Procedure [facility] [address] [place] [address] Everton Decker MD [address] [place], [place] [id number] B/L MBNB L3-L4, L4-L5, w fluoro [facility] Comment on above: B/L MBNB L3-L4, L4-L5, w fluoro Start: 04-24-2024 Lipid panel [facility] Start: 2024 Abdominal aortic aneurysm screening Abdominal Aortic Aneurysm Imaging [facility] Start: 2024 Advance Directive Discussion Advance Directive Discussion [facility] Start: 2024 Pneumococcal vaccination Pneumococcal Vaccine (3 of 3 - PPSV23 or PCV20) [facility] Start: 2024 Pneumococcal Vaccine: 65+ (3 of 3 - PPSV23 or PCV20) Pneumococcal Vaccine: 65+ (3 of 3 - PPSV23 or PCV20) [facility] Start: 04-06-2024 End: 04-06-2024 Patient encounter procedure 04/06/2024 9:30 AM EDT Office Visit [place] [id number] [facility] [phone] Lois Kee MD [address] [place], [place] [id number] lower back pain [facility] Comment on above: lower back pain Start: 03-30-2024 End: 03-30-2024 Follow-up encounter [facility] Comment on above: Follow up from ANASTAS[facility] FOLLOW UP FROM ILESI L4-L5 Start: 03-19-2024 Covid-19 Vaccine ( season) Covid-19 Vaccine ( season) [facility] Start: 03-19-2024 Covid-19 Vaccine ( season) Covid-19 Vaccine ( season) [facility] Start: 03-19-2024 Influenza vaccination [facility] Start: 03-16-2024 End: 03-16-2024 ambulatory [facility] Comment on above: PENDING - CAD ILESI L4-L5 W Fluoro; PLAV IX OKAY TO HOLD FOR 7 DAYS FC AUTH GOOD - CAD I LESI L4-L5 W Fluoro; PLAVIX OKAY TO HOLD FOR 7 DAYS Start: 02-10-2024 End: 02-10-2024 Patient encounter procedure 02/10/2024 9:15 AM EDT Office Visit Pulmonary Medicine [address] [place] [address] Shelton Aguilera MD [address] [place] [address] lung nodules 3 mos followup Pulmonary Medicine Comment on above: lung nodules 3 mos followup Start: 01-10-2024 End: 01-10-2024 Patient encounter procedure 01/10/2024 1:00 PM EDT Office Visit Allergy [address] [address] Anna Abbott MD [address] [place] [address] allergies Allergy Comment on above: allergies Start: 01-04-2024 End: 01-04-2024 Follow-up encounter 01/04/2024 1:45 PM EDT [facility] [place] [address] Catherine Champion APRN.CLINICAL ADMINISTRATOR [address] [place] [phone] Follow up from [facility] Comment on above: Follow up from [facility] #2 Start: 12-31-2023 End: 12-31-2023 ambulatory [facility] Comment on above: B/L MBNB L4-L5, L5-S1 w fluoro X2 PENDING - CAD B/L MB NB L4-L5, L5-S1 w fluoro; PLAVIX - NO HOLD NEEDED (2 OF 2) DENIED - CAD B/L MBN B L4-L5, L5-S1 w fluoro; PLAVIX - NO HOLD NEEDED (2 OF 2) Start: 12-29-2023 End: 12-29-[address] [facility] Comment on above: Lung nodules [R91.8] Start: 12-22-2023 End: 12-22-2023 Follow-up encounter [facility] Comment on above: Follow up from [facility] #1 Follow up from [facility] # 1 (Please let Bretha know when this is completed so she can do the appeal letter) Start: 12-16-2023 End: 12-16-2023 ambulatory [facility] Comment on above: B/L MBNB L4-L5, L5-S1 w fluoro X2 AUTH GOOD - CAD B/L MBNB L4-L5, L5-S1 w fluoro; PLAVIX - NO HOLD NEEDED (1 OF 2) Start: 11-25-2023 End: 11-25-2023 Follow-up encounter 11/25/2023 2:15 PM EDT [facility] [address] [place] [address] 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, Bertha, PHYSICIAN OPHTHALMOLOGIST.CLINICAL ADMINISTRATOR [address] [place] [address] Follow up from MRI [facility] Comment on above: Follow up from MRI Start: 11-19-2023 End: 11-19-2023 Patient encounter procedure 11/19/2023 12:00 PM EDT [facility] [address] [facility] [id number] MRI LUMBAR SPINE WO IVCON Radiology Comment on above: MRI LUMBAR SPINE WO IVCON Start: 07-19-2023 Depression Assessment Depression Assessment [facility] Start: 03-19-2023 Covid-19 Vaccine ( season) Covid-19 Vaccine ( season) [facility] Start: 03-19-2023 Influenza vaccination Influenza Vaccine (#1) [facility] Start: 06-04-2022 Pneumococcal vaccination Pneumococcal Vaccine(s) (50+ yrs) (3 of 3 - PCV20 or PCV21) [facility] Start: 06-04-2022 Pneumococcal Vaccine: 50+ (3 of 3 - PCV20 or PCV21) Pneumococcal Vaccine: 50+ (3 of 3 - PCV20 or PCV21) [facility] Start: 04-24-2022 Diabetes Screening Diabetes Screening [facility] Start: 2019 Hepatitis B (HBV) Vaccine (optional start 60+ years) Hepatitis B (HBV) Vaccine (optional start 60+ years) [facility] Start: 2019 RSV Vaccine (1 - 1-dose 60+ series) RSV Vaccine (1 - 1-dose 60+ series) [facility] Start: 2019 RSV Vaccine (1 - Risk 60-74 years 1-dose series) RSV Vaccine (1 - Risk 60-74 years 1-dose series) [facility] Start: 2019 RSV vaccine (adult) (1 - Risk 60-74 years 1-dose series) RSV vaccine (adult) (1 - Risk 60-74 years 1-dose series) [facility] Start: 2019 RSV vaccine (optional 60+ years) RSV vaccine (optional 60+ years) [facility] Start: 2014 Prostate specific antigen measurement Prostate Cancer Screening Discussion [facility] Start: 2009 Measurement of occult blood in single stool specimen FIT [facility] Start: 2009 Screening for malignant neoplasm of colon CRC Screening [facility] Start: 2009 Shingrix Vaccine (1 of 2) Shingrix Vaccine (1 of 2) [facility] Start: 2009 Varicella-zoster vaccine (product) Shingles (RZV) Vaccine (1 of 2) [facility] Start: 2004 Prostate specific antigen measurement Prostate Cancer Screening Discussion [facility] Start: 2004 Screening for malignant neoplasm of colon [facility] Start: 1989 Zoledronic acid therapy Alpha-1 Antitrypsin Deficiency Screening [facility] Start: 1978 Hepatitis A (HAV) Vaccine (optional start 19+ years) Hepatitis A (HAV) Vaccine (optional start 19+ years) [facility] Start: 1977 Annual PCP Team Chronic Disease Visit Annual PCP Team Chronic Disease Visit [facility] Start: 1977 Anxiety Screening Anxiety Screening [facility] Start: 1977 BP Controlled (<130/80) BP Controlled (<130/80) [facility] Start: 1977 Depression Screening Depression Screening [facility] Start: 1977 [facility] Start: 1977 HIV screening HIV Screening [facility] Start: 1977 Tetanus + diphtheria + acellular pertussis vaccine (product) Tdap Booster [facility] Start: 1974 HIV screening [facility] Test [facility] Start: 1964 COVID-19 Vaccine (1) COVID-19 Vaccine (1) [facility] Start: 1959 COVID-19 Vaccine (#1) COVID-19 Vaccine (#1) [facility] Start: 1959 Abdominal aortic aneurysm screening Abdominal Aortic Aneurysm Screening [facility] Start: 1959 Prostate specific antigen measurement Prostate Cancer Screening (shared decision making) [facility] Start: 1959 Screening for malignant neoplasm of colon Colonoscopy [facility] Assay of magnesium MAGNESIUM Lab Routine Daily until discontinued starting 10/25/2024, 2 [facility] Comment on above: Daily until discontinued starting 2024, 2 completed Basic metabolic 2000 panel - Serum or Plasma BASIC METABOLIC PANEL Lab Routine Daily until discontinued starting 10/25/2024, 2 completed [facility] [employer] Work Phone: Comment on above: Daily until discontinued starting 2024, 2 completed CBC W Auto Different ial panel - Blood COMPLETE BLOOD COUNT W/DIFF Lab Routine Daily until discontinued starting 10/25/2024, 2 completed [facility] Comment on above: Daily until discontinued starting 2024, [address] Chest WO contrast CT CHEST WO IVCON Radiology Routine Wheezing 09/02/2023 1:22 PM EST [facility] Work Phone: End: 12-10-2024 CT Chest WO contrast CT CHEST WO IVCON Radiology Routine Lung nodules 1 Occurrences starting 11/11/2023 until 12/10/2024 [facility] Work Phone: Comment on above: 1 Occurrences starting 11/11/2023 until 12/10/2024 CT Chest WO contrast CT CHEST WO IVCON Radiology Routine Lung nodules 12/29/2023 11:14 AM EDT [facility] Work Phone: End: 07-14-2025 ECG COMPLETE ECG COMPLETE ECG Routine Spinal stenosis of lumbar region with neurogenic claudication 1 Occurrences starting 07/14/2024 until 07/14/2025 [facility] Comment on above: 1 Occurrences starting 07/14/2024 until 07/14/2025 Ecg routine ecg w/le ast 12 lds trcg only w/o i&r EKG 12 LEAD - PERFORM MUSE Routine COPD exacerbation (HCC) Ordered: 10/26/2024 [facility] Comment on above: Ordered: 10/26/2024 End: 11-10-2024 Echocardiography ECHO Cardiology Routine Lung nodules Severe persistent asthma, unspecified whether complicated 1 Occurrences starting 11/11/2023 until 11/10/2024 [facility] Comment on above: 1 Occurrences starting 11/11/2023 until 11/10/2024 End: 10-24-2024 EXTRA TUBE EXTRA TUBE Lab Routine One time for 1 Occurrences starting 10/24/2024 until 10/24/2024 [employer] Work Phone: Comment on above: One time for 1 Occurrences starting 02/2025 until 10/24/2024 H&P for surgery H&P FOR SURGERY Procedures Routine Spinal stenosis of lumbar region with neurogenic claudication Ordered: 07/14/2024 [facility] Work Phone: Comment on above: Ordered: 07/14/2024 End: 11-10-2024 HOME SLEEP APNEA TEST (HSAT) HOME SLEEP APNEA TEST (HSAT) Procedures Routine Lung nodules Severe persistent asthma, unspecified whether complicated 1 Occurrences starting 11/11/2023 until 11/10/2024 [facility] Comment on above: 1 Occurrences starting 11/11/2023 until 11/10/2024 INHALANT ALLERGEN PANEL INHALANT ALLERGEN PANEL Lab Routine Environmental and seasonal allergies 01/08/2025 11:28 AM EDT [employer] LUNG DIFFUSION CAPAC ITY (DLCO) LUNG DIFFUSION CAPACITY (DLCO) PFT Routine Chronic obstructive pulmonary disease, unspecified COPD type (HCC) 09/02/2023 10:49 AM [employer] [facility] Work Phone: LUNG VOLUMES LUNG VOLUMES PFT Routine Chronic obstructive pulmonary disease, unspecified COPD type (HCC) 09/02/2023 10:49 AM [facility] Work Phone: End: 11-27-2024 MR Lumbar spine WO contrast MRI LUMBAR SPINE WO IVCON Radiology Routine Spinal 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 1 Occurrences starting 10/29/2023 until 11/27/2024 [facility] Work Phone: Comment on above: 1 Occurrences starting 10/29/2023 until 11/27/2024 Njx dx/ther agt pvrt facet jt lmbr/sac 1 level NJX DX/THER AGT PVRT FACET JT LMBR/SAC 1 LEVEL Procedures Routine Lumbar spondylosis Ordered: 10/28/2023 [facility] Work Phone: Comment on above: Ordered: 10/28/2023 Njx dx/ther agt pvrt facet jt lmbr/sac 1 level NJX DX/THER AGT PVRT FACET JT LMBR/SAC 1 LEVEL Procedures Routine Lumbar spondylosis Ordered: 12/16/2023 [facility] Work Phone: Comment on above: Ordered: 12/16/2023 Njx dx/ther agt pvrt facet jt lmbr/sac 1 level NJX DX/THER AGT PVRT FACET JT LMBR/SAC 1 LEVEL Procedures Routine Lumbar spondylosis Ordered: 04/26/2024 [facility] Work Phone: Comment on above: Ordered: 04/26/2024 Njx dx/ther agt pvrt facet jt lmbr/sac 1 level NJX DX/THER AGT PVRT FACET JT LMBR/SAC 1 LEVEL Procedures Routine Lumbar spondylosis Ordered: 05/10/2024 [facility] Work Phone: Comment on above: Ordered: 05/10/2024 Njx dx/ther agt pvrt facet jt lmbr/sac 2nd level NJX DX/THER AGT PVRT FACET JT LMBR/SAC 2ND LEVEL Procedures Routine Lumbar spondylosis Ordered: 10/28/2023 [facility] Work Phone: Comment on above: Ordered: 10/28/2023 Njx dx/ther agt pvrt facet jt lmbr/sac 2nd level NJX DX/THER AGT PVRT FACET JT LMBR/SAC 2ND LEVEL Procedures Routine Lumbar spondylosis Ordered: 12/16/2023 [facility] Comment on above: Ordered: 12/16/2023 Njx dx/ther agt pvrt facet jt lmbr/sac 2nd level NJX DX/THER AGT PVRT FACET JT LMBR/SAC 2ND LEVEL Procedures Routine Lumbar spondylosis Ordered: 04/26/2024 [facility] Comment on above: Ordered: 04/26/2024 Njx dx/ther agt pvrt facet jt lmbr/sac 2nd level NJX DX/THER AGT PVRT FACET JT LMBR/SAC 2ND LEVEL Procedures Routine Lumbar spondylosis Ordered: 05/10/2024 [facility] Comment on above: Ordered: 05/10/2024 Njx dx/ther sbst int rlmnr lmbr/sac w/img gdn EPI LUMBAR OR SACRAL W/IMAGING Procedures Routine Lumbar radiculopathy Ordered: 03/16/2024 [facility] Work Phone: Comment on above: Ordered: 03/16/2024 Patient Education Treating Wrist Fractures [facility] Work Phone: Patient referral [facility] Work Phone: End: 07-07-2025 PULMONARY LAB-SPECIFIC TESTING SERVICE RQST PULMONARY LAB-SPECIFIC TESTING SERVICE RQST PFT Routine Reactive airway disease without complication, unspecified asthma severity, unspecified whether persistent (HCC) 1 Occurrences starting 01/08/2025 until 07/07/2025 [employer] Comment on above: 1 Occurrences starting 01/08/2025 until 07/07/2025 Smr prim src gram/gi emsa stain bct fungi/cell RESPIRATORY CULTURE, MISC Microbiology Routine 10/25/2024 12:47 PM EDT [employer] Work Phone: End: 08-13-2025 XR Chest PA and Lateral XR CHEST 2V FRONTAL/LAT Radiology Routine Spinal stenosis of lumbar region with neurogenic claudication 1 Occurrences starting 07/14/2024 until 08/13/2025 [facility] Comment on above: 1 Occurrences starting 07/14/2024 until 08/13/2025 End: 07-14-2024 XR Chest PA and Lateral [facility] Work Phone: Comment on above: 1 Occurrences starting 07/14/2024 until 07/14/2024 End: 09-09-2025 XR Lumbar spine 2 Views XR LUMBAR LIMITED 2V FLEX/EXT Radiology Routine S/P lumbar laminectomy 1 Occurrences starting 08/10/2024 until 09/09/2025 [facility] Work Phone: Comment on above: 1 Occurrences starting 08/10/2024 until 09/09/2025 End: 05-04-2025 XR Lumbar spine AP and Lateral XR LUMBAR LIMITED 2V AP/LAT Radiology Routine Low back pain, unspecified back pain laterality, unspecified chronicity, unspecified whether sciatica present 1 Occurrences starting 04/04/2024 until 05/04/2025 [facility] Work Phone: Comment on above: 1 Occurrences starting 04/04/2024 until 05/04/2025 End: 05-06-2025 XR Lumbar spine Views W flexion and W extension XR LUMBAR MOTION 4V AP/LAT/ FLEX/EXT Radiology Routine Low back pain, unspecified back pain laterality, unspecified chronicity, unspecified whether sciatica present 1 Occurrences starting 04/06/2024 until 05/06/2025 [facility] Comment on above: 1 Occurrences starting 04/06/2024 until 05/06/2025 XR Lumbar spine View s W flexion and W extension XR LUMBAR MOTION 4V AP/LAT/ FLEX/EXT Radiology Routine Low back pain, unspecified back pain laterality, unspecified chronicity, unspecified whether sciatica present 06/05/2024 8:59 AM EST [facility] Work Phone: [facility] Immunizations Immunization Date Immunization Notes Care Provider [facility] 01-08-2025 Pneumococcal conjuga te 20 valent (PCV20), polysaccharide [id number] conjugate, adjuvant, PF (ZKP=549) Veronica Butt PHYSICIAN OPHTHALMOLOGIST-[facility] Work Phone: [facility] 01-08-2025 Respiratory syncytia l virus (RSV), vaccine, bivalent, protein subunit RSV prefusion F, diluent reconstituted, 0.5 mL, preservative free (VRC=301) Veronica Butt PHYSICIAN OPHTHALMOLOGIST-[facility] Work Phone: [facility] 10-24-2024 Hemoglobin A1C Aura Wagner MD Work Phone: [facility] 06-14-2023 tetanus toxoid, redu sdea diphtheria toxoid, and acellular pertussis vaccine, adsorbed [employer] Work Phone: [facility] 04-24-2019 influenza, injectabl e, quadrivalent, preservative free [facility] 04-24-2019 influenza virus vacc ine, unspecified formulation [facility] Work Phone: [facility] 06-04-2017 influenza, injectabl e, quadrivalent, preservative free [facility] 06-04-2017 pneumococcal polysaccharide vaccine, 23 valent [facility] 05-26-2017 Influenza virus vaccine [facility] 05-26-2017 influenza virus vacc ine, split virus (incl. purified surface antigen) Brooke Wu RN [facility] 05-26-2017 influenza, seasonal, injectable, preservative free Brooke Wu RN [facility] 05-26-2017 [facility] 06-08-2015 pneumococcal conjuga te vaccine, 13 [facility] 06-05-2015 influenza, seasonal, injectable, preservative free [facility] Payers Date Payer Category Payer Medicare FFS MEDICARE [id number] 2024 Commercial Indemnity [id number] 2024 Miscellaneous or Other HOSPITAL/ MEDICAL GENERIC [id number] 2024 Unknown [id number] 2024 Medicare [id number] 2024 Medicare [id number] 2023 Unknown [id number] 2023 Self-pay [id number] 2018 Unknown [id number] 2016 Unknown [id number] 1959 Unknown [id number] 732 1959 Unknown [id number] 732 1959 Unknown [id number] 732 1959 Unknown [id number] 732 1959 Unknown [id number] 732 1959 Unknown [id number] 732 1959 Unknown [id number] 732 1959 Unknown [id number] 732 Unknown [id number] 462 Unknown [id number] 462 Unknown [id number] 462 Social History Date Type Detail Facility Start: 04-22-2019 End: 03-22-2022 Tobacco smoking status WAIS Tobacco smoking consumption unknown [facility] Start: 1960 Sex Assigned At [facility] file [facility] Start: 04-23-2019 Heavy [facility] Start: 04-22-2019 None [facility] Start: 04-22-2019 Spouse/ Signif icant Other [facility] Start: 04-23-2019 Cigarettes [facility] Start: 1960 Sex Assigned At Male W [facility] Start: 06-14-2023 End: 10-24-2024 Tobacco smoking status NHIS Smokes tobacco daily [facility] History of tobacco use Cigarette Smoker C [facility] Start: 06-14-2023 End: 10-24-2024 Cigarettes smoked current (pack per day) - Reported 2 [facility] Start: 06-14-2023 End: 01-08-2025 Tobacco use and exposure Smokeless tobacco non-user [facility] Start: 08-20-2023 End: 10-24-2024 Alcohol intake Current drinker of alcohol (finding) [facility] Start: 08-20-2023 End: 10-24-2024 Tobacco use panel [facility] National Score (1-100), lower number is lower risk 53 [facility] Start: 06-14-2023 Alcohol Comment 6 pack a day [facility] Start: 04-06-2024 End: 07-14-2024 Tobacco smoking status NHIS Ex-smoker [facility] History of tobacco use Current smoker [facility] Start: 04-06-2024 Tobacco Comment Quit smoking a week or so ago (04/06/24) [facility] Start: 07-14-2024 Tobacco Comment Quit smoking a week or so ago (04/06/24)Smoked for about 35 years max 2 [facility] Start: 07-14-2024 Alcohol Comment 30 cans beer per wemimi k [facility] Start: 07-14-2024 Tobacco Comment Quit smoking a week or so ago (04/06/24)Smoked for about 35 years 1- 2 [facility] Has the electric, [employer], [employer], or water [employer] threatened to shut off services in your home in past 12Mo No [facility] (I/We) worried whecelia er (my/our) food would run out before (I/we) got money to buy more. Never true [facility] Start: 04-23-2019 Sex Male (finding) [facility] Start: 11-17-2024 End: 01-08-2025 Tobacco smoking status NHIS Occasional tobacco smoker [facility] Medical Equipment Procedure Code Equipment Code [...] 07/29/2024 3:21 PM Jennifer Bridges, NEENA No [facility] 07-29-2024 Are you blind, or do you have serious difficulty seeing, even when wearing glasses No 07/29/2024 3:21 PM Jennifer Bridges, NEENA No [facility] 07-29-2024 Do you have serious difficulty walking or climbing stairs No 07/29/2024 3:21 PM Jennifer Bridges, NEENA No [facility] 07-29-2024 Do you have difficul ty dressing or bathing No 07/29/2024 3:21 PM Jennifer Bridges, NEENA No [facility] 07-29-2024 Because of a physica l, mental, or emotional condition, do you have difficulty doing errands alone such as visiting a physician's office or shopping No 07/29/2024 3:21 PM Jennifer Bridges, NEENA No [facility] 04-23-2019 Are you deaf, or do you have serious difficulty hearing No 04/23/2019 9:00 PM Cynthia Raphael, NEENA No [facility] 04-23-2019 Are you blind, or do you have serious difficulty seeing, even when wearing glasses Yes 04/23/2019 9:00 PM Cynthia Raphael, NEENA Yes [facility] 04-23-2019 Do you have serious difficulty walking or climbing stairs No 04/23/2019 9:00 PM Cynthia Raphael, NEENA No [facility] 04-23-2019 Do you have difficul ty dressing or bathing No 04/23/2019 9:00 PM Cynthia Raphael, NEENA No [facility] 04-23-2019 Because of a physica l, mental, or emotional condition, do you have difficulty doing errands alone such as visiting a physician's office or shopping No 04/23/2019 9:00 PM Cynthia Raphael, NEENA No [facility] Mental Status Date Assessment Result Facility 07-29-2024 Because of a physica l, mental, or emotional condition, do you have serious difficulty concentrating, remembering, or making decisions No 07/29/2024 3:21 PM Jennifer Bridges, NEENA No [facility] 04-23-2019 Because of a physica l, mental, or emotional condition, do you have serious difficulty concentrating, remembering, or making decisions No 04/23/2019 9:00 PM EDT Cynthia Cohn RN No [facility] Clinical Notes 08-20-2023 to 02-01-2025 Telephone Encounter - Elvis Duke - 02/01/2025 3:12 PM EDTTelephone Encounter - Duke Leal - 02/01/2025 3:12 PM EDTTelephone Encounter - Clemencia Rodriguez - 02/01/2025 2:34 PM EDTAttachments Note Date & Type Note Facility 02-01-2025 Telephone encounter Note Lm on vcml to scheduled PFT [facility] 02-01-2025 Miscellaneous Notes Lm on vcml to scheduled PFT Please contact to reschedule PFT appt. documented in this encounter [facility] 02-01-2025 Telephone encounter Note Please contact to reschedule PFT appt. [facility] 01-08-2025 History of Present illness Narrative Images [...] this hospital course he was seen by [facility] pulmonary in October and then by a private practice vehicle monitor technician in [place] (no OV notes available) Per patient and [...] -- -- 0.07 <0.03 Modified Medical [facility] [place] (mMRC) dyspnea scale Grade Description of breathlessness [...] + PRN 2L with exertion Occupation/Exposures: Occupation: [employer] Born/raised: [place] Pets: 1 dog Triggers: highlighted if positive [...] - Connective tissue disorders; SLE, Sjogren's, RA, Anatone's - Iritable bowel disease - Malignancy or [...] (CVX=15) 05/26/2017 Influenza, injectable, quadrivalent, preservative free (DAF=531) 06/04/2017, 04/24/2019 Influenza, injectable, trivalent, preservative free (YSC=397) 06/05/2015, 05/26/2017 Pneumococcal conjugate 13 valent (PCV13) (AIU=523) 06/08/2015, 05/26/2017 Pneumococcal polysaccharide 23 Valent (PPSV23) (CVX=33) 06/04/2017 Tdap (YSR=677) 06/14/2023 Pended Date(s) Pended Pneumococcal conjugate 20 valent (PCV20), polysaccharide [id number] conjugate, adjuvant, PF (CUJ=165) 01/08/2025 Respiratory syncytial virus (RSV), vaccine, bivalent, protein subunit RSV prefusion F, diluent reconstituted, 0.5 mL, preservative free (NKO=814) 01/08/2025 Outpatient Medications: Current Asthma Medications Sympathomimetics [...] signs of COPD on PFT's completed at [facility] Did not respond well to Dulera [...] to improve, for in-person visit. Veronica Butt APRN.[facility] Department of Pulmonary [facility] Time-based billing justifications: Reviewing (chart, labs, and other clinical notes) Obtaining history (or reviewing separately obtained history) Patient visit (including performing a medically appropriate exam) Counseling/educating the patient/family/caregiver Ordering (medications, tests, procedures - including independent interpretation of results when not reported separately) Charting in [facility] [1] No past medical history on file. [2] No past surgical history on file. [3] No family history on file. [4] Allergies Allergen Reactions Penicillins Roflumilast Rash Patient was identified by name and date of . Barak Cerrato MA .Patient at risk for falls:No Falls Risk protocol implemented: N/A documented in this encounter [facility] 12-25-2024 Telephone encounter Note Neurology Clinical Roadability Machine Operator Note Attempted to call patient. LVM to return call to this RN to schedule a neurology appt for JIN with Dr Flannery. Letter sent SUSY Flood, RN, [facility] Clinical Roadability Machine Operator, Neurology [facility] 12-25-2024 Miscellaneous Notes Neurology Clinical Roadability Machine Operator Note Attempted to call patient. LVM to return call to this RN to schedule a neurology appt for JIN with Dr Flannery. Letter sent SUSY Flood, RN, [facility] Clinical Roadability Machine Operator, Neurology documented in this encounter [facility] 12-02-2024 Hospital Discharge instructions Prashanth Heaton MD [...] sent through Care Everywhere.Headache Discharge Instructions, Adult (Malawian)Risk Factors for Stroke (Malawian)documented in this encounter [facility] 12-02-2024 Note Physician Triage Not e The [...] role in this case. PLEASE SEE OTHER ATTENDING/RESIDENT/PHYSICIAN/CLINICAL ADMINISTRATOR /PA NOTATION Elvis Rodriguez MD [facility] 12-02-2024 Physician Emergency department Note Physician [...] role in this case. PLEASE SEE OTHER ATTENDING/RESIDENT/PHYSICIAN/CLINICAL ADMINISTRATOR /PA NOTATION Elvis Rodriguez MD [employer] Work Phone: 12-02-2024 Emergency department Note Physician [...] role in this case. PLEASE SEE OTHER ATTENDING/RESIDENT/PHYSICIAN/CLINICAL ADMINISTRATOR /PA NOTATION Elvis Rodriguez MD documented in this encounter [facility] 11-24-2024 Telephone encounter Note COPD Care Coordination note: Subjective: I am doing ok Objective: Future Appointments (next 10) Provider Department Center 01/08/2025 10:20 AM (Arrive by 10:10 AM) Veronica Butt APRN-CNP [facility] 01/18/2025 9:40 AM [facility] who reports: Patient reports [...] prescribed Attend all recommended appointments Brooke Wu Clinical Research Spec [phone] Option 3 [facility] 11-24-2024 Miscellaneous Notes COPD Care Coordination note: Subjective: I am doing ok Objective: Future Appointments (next 10) Provider Department Center 01/08/2025 10:20 AM (Arrive by 10:10 AM) Veronica Butt APRN-CNP [facility] 01/18/2025 9:40 AM [facility] patient who reports: Patient reports [...] prescribed Attend all recommended appointments Brooke Wu Clinical Research Spec [phone] Option 3 documented in this encounter [facility] 11-17-2024 History of Present illness Narrative Images [...] date of . documented in this encounter [facility] 11-16-2024 Note HNO ID: [id number] Author: VARUN PRATT, PT Service: ? Author Type: Physical Therapist Type: Progress Notes Filed: 11/16/2024 11:41 Note Text: 11/16/2024 [facility] PHYSICAL THERAPY DISCONTINUANCE [...] scheduled additional follow-up appointments. Varun Pratt, PT [facility] 11-01-2024 Telephone encounter Note Vijay, The patient has been referred to the pulmonary rehab program. The pulmonary referral that was placed does not have the measurements from the PFT included within it. On the referral it states Patient's Reference Values: No results found for: [id number]. In order to assess whether or not the patient qualifies, we will need these values filled in on the referral. Please consider ordering PFTs for the patient so that the updated values can be included in the referral. Based on the current referral, the patient will not be added to the workqueue at this time. Thank you. [facility] 11-01-2024 Miscellaneous Notes Vijay, The patient has been referred to the pulmonary rehab program. The pulmonary referral that was placed does not have the measurements from the PFT included within it. On the referral it states Patient's Reference Values: No results found for: [id number]. In order to assess whether or not the patient qualifies, we will need these values filled in on the referral. Please consider ordering PFTs for the patient so that the updated values can be included in the referral. Based on the current referral, the patient will not be added to the workqueue at this time. Thank you. documented in this encounter [facility] 10-27-2024 Note Transitional Care Carlie washing[place]brigida Contact [...] Pharmacy needs: None at this time Reviewed [facility] pharmacy information with patient: No Reviewed follow up appointments/procedures: No Future Appointments (next 10) Provider Department Center 11/17/2024 2:00 PM Anna Sanders PA-C [facility] 01/08/2025 10:20 AM (Arrive by 10:10 AM) Veronica Butt APRN-NABOR [facility] Pulmonary [facility] Reviewed need for/follow up on diagnostic tests, referrals, and treatment plans:No Community resources identified for patient/family: No Durable medical equipment ordered: No Education provided to patient/caregiver to support self management, ADL's, etc: Take all medications as prescribed Attend all recommended follow up appointments Follow up with Urgent Care/Express Care/ED should symptoms worsen or not improve Interact with other health long term care pharmacist involved in patient care: No Referral to Primary Care Coordination: No Referral to Pan Weber: No Information specific to COPD Hearing Screener: Has home oxygen: Yes, 2-4 liters Has [...] oxygen unit is being stored SUSY Hammond, health records technology teacherClinical Research Spec [phone] [facility] 10-27-2024 Telephone encounter Note Transitional Care [...] Pharmacy needs: None at this time Reviewed [facility] pharmacy information with patient: No Reviewed follow up appointments/procedures: No Future Appointments (next 10) Provider Department Center 11/17/2024 2:00 PM Anna Sanders PA-C [facility] 01/08/2025 10:20 AM (Arrive by 10:10 AM) Veronica Butt APRN-CLINICAL ADMINISTRATOR [facility] Pulmonary [facility] Reviewed need for/follow up on diagnostic tests, referrals, and treatment plans:No Community resources identified for patient/family: No Durable medical equipment ordered: No Education provided to patient/caregiver to support self management, ADL's, etc: Take all medications as prescribed Attend all recommended follow up appointments Follow up with Urgent Care/Express Care/ED should symptoms worsen or not improve Interact with other health long term care pharmacist involved in patient care: No Referral to Primary Care Coordination: No Referral to Pan Weber: No Information specific to COPD Hearing Screener: Has home oxygen: Yes, 2-4 liters Has [...] oxygen unit is being stored SUSY Hammond, health records technology teacherClinical Research Spec [phone] [facility] 10-27-2024 Miscellaneous Notes Transitional Care Management Contact [...] Pharmacy needs: None at this time Reviewed [facility] pharmacy information with patient: No Reviewed follow up appointments/procedures: No Future Appointments (next 10) Provider Department Center 11/17/2024 2:00 PM Anna Sanders PA-C [facility] 01/08/2025 10:20 AM (Arrive by 10:10 AM) Veronica Butt, PHYSICIAN OPHTHALMOLOGIST-NABOR [facility] Pulmonary [facility] Reviewed need for/follow up on diagnostic tests, referrals, and treatment plans:No Community resources identified for patient/family: No Durable medical equipment ordered: No Education provided to patient/caregiver to support self management, ADL's, etc: Take all medications as prescribed Attend all recommended follow up appointments Follow up with Urgent Care/Express Care/ED should symptoms worsen or not improve Interact with other health long term care pharmacist involved in patient care: No Referral to Primary Care Coordination: No Referral to Pan Weber: No Information specific to COPD Hearing Screener: Has home oxygen: Yes, 2-4 liters Has [...] oxygen unit is being stored SUSY Hammond, health records technology teacherClinical Research Spec [phone] documented in this encounter [facility] 10-26-2024 Hospital Discharge instructions Dhiraj Ron MD - 10/26/2024 3:24 PM EDT Take Anoro-Ellipta inhaler daily and use your albuterol inhaler as needed. You can continue taking your nebulization. Complete your course of prednisone and antibiotics as indicated. We have made followup with [facility] Pulmonary Physicans Also use supplemental oxygen at discharge. documented in this encounter [facility] 10-26-2024 Plan of care note EXERCISE OXIMETRY: [...] lowest SpO2 was 94%. Aura Wagner MD [facility] 10-26-2024 Miscellaneous Notes EXERCISE OXIMETRY: At rest, [...] Aura Wagner MD documented in this encounter [facility] 10-26-2024 History of Present illness Narrative A [...] bedside for transport at discharge, please call [employer] at [phone] (Available 08/02). Pt has been cleared to dc home with recs for OP Pulm Rehab. SW will follow for appropriate dc planning. JERRY Norris, LIME KILN TENDER Inpatient Career Resource Technician Images from the original note were not included. [facility] Internal Medicine Fpc Plan Note Elis Bills Age [age] year old male ROOM: [place] [address] Admitted No admission date for patient encounter. [...] nicotine patch Remainder of plan per internet retailer note. Raji Curran MD Internal Medicine, PGY-3 Available via [facility] Chat documented in this encounter [facility] 10-26-2024 Note DISCHARGE SUMMARY [place] [id number] Elis Bills Date of : 1960 64 [...] not reported separately) Charting in [facility] Final Diagnosis: COPD exacerbation (HCC) Hospital Problems as of 10/26/2024 * (Principal) COPD exacerbation (HCC) Exacerbation of intermittent asthma, unspecified asthma severity (HCC) Discharge Procedure Orders Pulm Rehab ADT ([id number]) DME WALKER Oxygen Concentrator (Home Oxygen) Portable Gaseous Oxygen System Pulmonary Rehab Service Request Referral Priority: Routine Referral Type: Evaluate and Treat Referral Reason: Evaluation Referral Location: [facility] RE[facility] Number of Visits Requested: 24 Expiration Date: 10/26/25 Pulmonary COPD Service Request Referral Priority: Routine Referral Type: Service Level Authorization Referral Location: [facility] Number of Visits Requested: 3 Expiration Date: 10/26/25 Electrocardiogram (EKG) - In Clinic Future Appointments Date Time Provider Department Center 11/17/2024 2:00 PM Anna Sanders PA-C [facility] 01/08/2025 10:20 AM Veronica Butt, PHYSICIAN OPHTHALMOLOGIST-CLINICAL ADMINISTRATOR [facility] Condition at Discharge improved Symptoms to look [...] Heart: RRR. (more content not included)... [facility] 10-26-2024 Consult note Formatting of th [...] Dep Max Mod Min CG CS DS NJ I Comment Supine to sit x *pt [...] DME: With Patients permission ordered rollator via [employer] Order. If any questions contact [facility] DME Provider at [phone]. 10/26/2024 6 Clicks Basic Mobility PT Difficulty [...] NA = Not Assessed, I = Independent, NJ = Modified Independent, Sup = Supervised, Set up = Physical Assistance for Set-up Only, Min = Minimal Assistance, Mod = Moderate Assistance, Max = Maximal assistance; Dep = Dependent; AROM = Active Range of Motion; PROM = Passive Range of Motion; MMT = Manual Muscle Test T [facility] 10-26-2024 Note PHYSICAL THERAPY PRO JOSH SUMMARY [...] Dep Max Mod Min CG CS DS NJ I Comment Supine to sit x *pt [...] DME: With Patients permission ordered rollator via [employer] Order. If any questions contact [facility] DME Provider at [phone]. 10/26/2024 6 Clicks Basic [employer] PT Difficulty [...] home en (more content not included)... [facility] 10-26-2024 Consult note Formatting of th [...] Dep Max Mod Min CG CS DS NJ I Comment Supine to sit x *pt [...] DME: With Patients permission ordered rollator via [employer] Order. If any questions contact [facility] DME Provider at [phone]. 10/26/2024 6 Clicks Basic Mobility PT Difficulty [...] NA = Not Assessed, I = Independent, NJ = Modified Independent, Sup = Supervised, Set [...] he does not need resources. 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 Denies falls or use of assist devices. [...] Dep Max Mod Min CG CS DS NJ I Comment Supine<>sit x Sit<>stand x Without [...] NA = Not Assessed, I = Independent, NJ = Modified Independent, Sup = Supervised, Set up = Physical Assistance for Set-up Only, Min = Minimal Assistance, Mod = Moderate Assistance, Max = Max assistance; Dep = Dependent; AROM = Active Range of Motion; PROM = Passive Range of Motion; MMT = Manual Muscle Test; LE = Lower Extremity documented in this encounter [facility] 10-25-2024 Consult note Associated Order (s): IP SOCIAL WORK SERVICE REQUEST SW is aware of consult for substance use resources. Pt declines substance use issues and states he does not need resources. 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 Denies falls or use of assist devices. 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 Denies falls or use of assist devices. [...] Dep Max Mod Min CG CS DS NJ I Comment Supine<>sit x Sit<>stand x Without [...] NA = Not Assessed, I = Independent, NJ = Modified Independent, Sup = Supervised, Set up = Physical Assistance for Set-up Only, Min = Minimal Assistance, Mod = Moderate Assistance, Max = Max assistance; Dep = Dependent; AROM = Active Range of Motion; PROM = Passive Range of Motion; MMT = Manual Muscle Test; LE = Lower Extremity [facility] 10-25-2024 History and physical note Stepdown Unit ATTENDING NOTE AURA WAGNER MD - PIN [id number] I saw and evaluated the patient. I [...] MD Pulmonary, Critical Care and Sleep Medicine [facility] 10-25-2024 History and physical note Stepdown Unit ATTENDING NOTE AURA WAGNER MD - PIN [id number] I saw and evaluated the patient. I [...] MD Pulmonary, Critical Care and Sleep Medicine [facility] Images from the original note were not included. [facility] Step Down Unit - H&P Elis Bills Age [age] year old male ROOM: [place] [address] Admitted 10/24/2024 7:57 PM Hospital Day: 2 [...] breath. He started to feel SOB in sikhism on Wednesday. Went home and used pulse [...] 3.92 FEF50/FIF50 0.41 90-100 FIVC (L) 2.62 QRY80-54 (L/sec) 0.90 1.20 2.56 4.44 35 Time [...] trapping, normal TLC. Normal FEV1/FVC but low LRT04-14. Chest CT with multiple sub<6mm lung nodules. No mediastinal LAD. Airway wall thickening. 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 [facility] Step Down Unit - H&P Elis Bills Age [age] year old male ROOM: [place] [address] Admitted 10/24/2024 7:57 PM Hospital Day: 2 [...] breath. He started to feel SOB in sikhism on Wednesday. Went home and used pulse [...] 3.92 FEF50/FIF50 0.41 90-100 FIVC (L) 2.62 WKZ11-22 (L/sec) 0.90 1.20 2.56 4.44 35 Time [...] trapping, normal TLC. Normal FEV1/FVC but low PNK52-40. Chest CT with multiple sub<6mm lung nodules. No mediastinal LAD. Airway wall thickening. 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 - CTX/azithro - BPH [...] PGY1, Internal Medicine Preliminary Stepdown Unit Pager [phone] [facility] 10-24-2024 Note SARS-COV-2 (AGENT OF COVID-19) RNA: Not detected INFLUENZA A RNA: Not detected INFLUENZA B RNA: Not detected RESPIRATORY SYNCYTIAL VIRUS (RSV) RNA: Not detected [facility] Comment on above: Performed By: #### 9 [id number] #### [facility] CLIA [id number] [address] [place] [address] OF [facility] 09-12-2024 History of Present illness Narrative Program_ID:[id number] Access Code: [email or web address] URL: [email or web address] Date: 09-12-2024 Prepared By: Varun Pratt Program [...] 10 reps - Seated Flexion Stretch with Chinese Ball - 2 x daily - 7 x weekly - 2 sets - 10 reps - Seated Thoracic Flexion and Rotation with Chinese Ball - 2 x daily - 7 [...] Goals for Episode of Care: established 09/12/24 [place] in home exercise program. Restore pain-free lumbar [...] Planned: 4 Planned Treatment Interventions: Therapeutic exercise (05985), Neuromuscular re-education (52830), Manual therapy (78512), Therapeutic activities (77968), Self-skilled nursing management (67996), Patient/Family/Caregiver Education, Body Mechanics Training PLAN FOR [...] Lumbar Extension: Minimal limitation Lumbar R Side Barling: Minimal limitation Lumbar L Side Barling: Minimal limitation Lumbar R Side-Bend: Minimal limitation [...] *Seated Pallof: 1x10 each, GTB. 5: *Seated grenadian ball flexion rollouts: x10. (discussed computer chair use at home) 6: *Seated grenadian ball flexion+rotation rollouts: x10 each way (discussed [...] Pratt PT, DPT. documented in this encounter [facility] 09-12-2024 Note HNO ID: [id number] Author: VARUN PRATT, SHARAN Service: ? Author [...] Goals for Episode of Care: established 09/12/24 [place] in home exercise program. Restore pain-free lumbar [...] Planned: 4 Planned Treatment Interventions: Therapeutic exercise (01370), Neuromuscular re-education (67025), Manual therapy (08973), Therapeutic activities (86926), Self-skilled nursing management (86498), Patient/Family/Caregiver Education, Body Mechanics Training PLAN FOR [...] general population. Hi (more content not included)... [facility] 09-05-2024 Telephone encounter Note LVM that appt for 09/18/24 has been cancelled due to not needing appt on 09/18/24 and again on 10/19/24. Told patient to call office if he has any questions regarding the cancelled appt on 09/18/24. [facility] 09-05-2024 Miscellaneous Notes LVM that appt for 09/18/24 has been cancelled due to not needing appt on 09/18/24 and again on 10/19/24. Told patient to call office if he has any questions regarding the cancelled appt on 09/18/24. documented in this encounter [facility] 08-28-2024 Telephone encounter Note Referral placed for physical therapy in the [facility] Internal Referral Portal. Confirmation # [id number] Puma Nicolas Ma [facility] 08-28-2024 Miscellaneous Notes Referral placed for physical therapy in the [facility] Internal Referral Portal. Confirmation # [id number] Puma Nicolas Ma documented in this encounter [facility] 08-10-2024 History of Present illness Narrative NEUROSURGERY POST-OP NOTE Lois Kee MD [facility] Date of visit: August 10, 2024 Patient Name: Mr.Donald Tim Bills Date of : 1960 Current Age: [age] year old Sex: male MRN/E# [id number] Last Office Visit: 08/02/2024 SURGERY: L1 decompression [...] in agreement with plan. Lois Kee MD [facility] This note was partially generated using [employer] voice recognition system, and there may be some incorrect words, spellings, and punctuation that were not noted in checking the note before saving. documented in this encounter [facility] 08-10-2024 Note HNO ID: [id number] Author: LOIS KEE MD Service: ? Author Type: Physician Type: Progress Notes Filed: 08/10/2024 13:30 Note Text: NEUROSURGERY POST-OP NOTE Lois Kee MD [facility] Date of visit: August 10, 2024 Patient Name: Mr.Donald Tim Bills Date of : 1960 Current Age: [age] year old Sex: male MRN/E# [id number] Last Office Visit: 08/02/2024 SURGERY: L1 decompression [...] No new angelica (more content not included)... [facility] 08-02-2024 Telephone encounter Note Patient phones requesting refills as follows: Requested Prescriptions Pending Prescriptions Disp Refills oxyCODONE IR (ROXICODONE) 5 mg immediate release tablet 9 tablet 0 Sig: Take 1 tablet by mouth every 8 hours as needed for up to 3 days. Please review and advise. Helen Decker MA [facility] [facility] Miscellaneous Notes Patient phones requesting refills as follows: Requested Prescriptions Pending Prescriptions Disp Refills oxyCODONE IR (ROXICODONE) 5 mg immediate release tablet 9 tablet 0 Sig: Take 1 tablet by mouth every 8 hours as needed for up to 3 days. Please review and advise. Helen Decker MA documented in this encounter [facility] 07-29-2024 Note HNO ID: [id number] Author: SINGH ALLEN PA-C Service: Hospital Medicine Author Type: Physician Transmissions Systems Operator Type: Plan of Care Filed: 07/29/2024 05:08 Note Text: This STEVE was notified about patient's sodium lvl of 121 by RN. Serum Osm 270. Random Na <20. Urine Osm 368. Consulted Nephrology due to decreasing NA lvls. Singh Allen PA-C [facility] 07-28-2024 Note HNO ID: [id number] Author: INGE REYNOSO APRN.LAPEL STITCHER Service: Anesthesiology Author Type: Nurse Straight Truck Driver Type: Anesthesia Procedure Notes Filed: 07/28/2024 12:07 Note Text: ANESTHESIOLOGY PROCEDURE NOTE Airway General Information Procedure Start Time/Medication Administration: 07/28/2024 12:03 PM Procedure End Time: 07/28/2024 12:03 PM Patient location during procedure: OR Timeout Performed Pre-procedure: timeout performed Consent Obtained: Yes Patient identity confirmed: arm band, care steam distribution supervisor and patient sedated or unresponsive Staffing LAPEL STITCHER: Inge Reynoso APRN.LAPEL STITCHER Performed by: LAPEL STITCHER Indications and Patient Condition Indications for airway [...] no Airway not difficult SIGNATURE: Inge Reynoso APRN.LAPEL STITCHER PATIENT NAME: Elis Bills DATE: July 28, 2024 TIME: 12:06 PM CSN: [id number] [facility] 07-28-2024 Note HNO ID: [id number] Author: KYLIE MALDONADO RN Service: Nursing Author Type: Registered Nurse Type: Nursing Progress Note Filed: 07/28/2024 09:50 Note Text: Dr. Grajeda notified: pt chewing nicorette gum, discarded at 0935. [facility] 07-27-2024 Telephone encounter Note Contacted patient to remind them of their arrival time for surgery with Dr. Lois Kee on 07/28/24. Patient is to arrive at [facility] at 8:30am for surgery at 10:30am. Spoke with patient and they are aware of all arrival information. [facility] 07-27-2024 Miscellaneous Notes Contacted patient to remind them of their arrival time for surgery with Dr. Lois Kee on 07/28/24. Patient is to arrive at [facility] at 8:30am for surgery at 10:30am. Spoke with patient and they are aware of all arrival information. documented in this encounter [facility] 07-21-2024 Telephone encounter Note Completed/signed form faxed back to Dr. Kee's office. Dalia Segura [facility] 07-21-2024 Miscellaneous Notes Completed/signed form faxed back to Dr. Kee's office. Dalia Segura Type of form: Medical clearance for L2-L4 Laminectomy DOS: 07/28/24 TIMO Form received via fax When form is completed, Fax form to [phone] Form has been forwarded to Physician Mailbox: Dr. Vu Segura documented in this encounter [facility] 07-20-2024 Telephone encounter Note Type of form: Medical clearance for L2-L4 Laminectomy DOS: 07/28/24 TIMO Form received via fax When form is completed, Fax form to [phone] Form has been forwarded to Physician Mailbox: Dr. Vu Segura [facility] 07-17-2024 Telephone encounter Note Sounds good thank you. [facility] Work Phone: 07-17-2024 Miscellaneous Notes Sounds good thank you. documented in this encounter [facility] 07-14-2024 Note HNO ID: [id number] Author: HARVEY PURVIS APRN.CLINICAL ADMINISTRATOR Service: Anesthesiology Author Type: Nurse Practitioner Type: [...] a hill (5.50 METs) DASI Score: 5.5 [facility] 07-14-2024 History of Present illness [...] PATIENT PRESENTS WITH AN IMPLANTABLE OR ATTACHED WATER USE INSPECTOR: No RADIOLOGY DEPARTMENT: General X-ray: Exam(s) Completed: Chest X-Ray PERIPHERAL IV DATA: Not applicable SIGNED BY: RT Jesus Alberto(Yareli) July 14, 2024 1:59 PM documented in this encounter [facility] 07-14-2024 Note HNO ID: [id number] Author: SARITA REYES RT(Yareli) Service: Radiology Author [...] PATIENT PRESENTS WITH AN IMPLANTABLE OR ATTACHED WATER USE INSPECTOR: No RADIOLOGY DEPARTMENT: General X-ray: Exam(s) Completed: Chest X-Ray PERIPHERAL IV DATA: Not applicable SIGNED BY: RT Jesus Alberto(R) July 14, 2024 1:59 PM [facility] 07-14-2024 History and physical note [...] at this time: primary care/internal medicine (in [facility]). Planned Anesthetic: general The Following Tests/Procedures Have Been Initiated: Orders Placed This Encounter Confirm Blood Type Standing Status: Future Number of Occurrences: 1 Standing Expiration Date: 10/13/2024 Order Specific Question: Did Blood Bank direct you to place this order: Answer: No - Presurgical Workflow [facility] Rounds 160-9-4.8 mcg/actuation HFA aerosol inhaler Sig: INHALE [...] fibrillation, CAD, chest pain, DVT/PE and recent [place]. GI: Positive for: GERD Negative for: abdominal [...] 450 QTC Calculation (Bazett) 482 Calculated P Grady -13 Calculated R Grady 78 Calculated T Grady 24 Impression SINUS RHYTHM WITH PREMATURE SUPRAVENTRICULAR COMPLEXES RIGHT BUNDLE BRANCH BLOCK ABNORMAL ECG NO PREVIOUS ECGS AVAILABLE Confirmed by MD ERICK, DEANN ([id number]) on 12/03/2023 4:27:07 PM Recent Results (from the past 04008 hour(s)) ECHO Collection Time: 12/29/23 10:25 AM [...] which included preparing to see the patient, egjm-fx-ijlf patient care, completing clinical documentation, obtaining and/or reviewing separately obtained history, performing a medically appropriate examination, counseling and educating the patient/family/caregiver, and ordering medications, tests, or procedures. SIGNATURE: Harvey Purvis APRN.CNP PATIENT NAME: Elis Bills DATE: July 14, 2024 TIME: 12:50 PM PAGER/CONTACT #: [facility] 07-14-2024 History and physical note [...] at this time: primary care/internal medicine (in [facility]). Planned Anesthetic: general The Following Tests/Procedures Have Been Initiated: Orders Placed This Encounter Confirm Blood Type Standing Status: Future Number of Occurrences: 1 Standing Expiration Date: 10/13/2024 Order Specific Question: Did Blood Bank direct you to place this order: Answer: No - Presurgical Workflow [facility] Rounds 160-9-4.8 mcg/actuation HFA aerosol inhaler Sig: INHALE [...] fibrillation, CAD, chest pain, DVT/PE and recent [place]. GI: Positive for: GERD Negative for: abdominal [...] 450 QTC Calculation (Bazett) 482 Calculated P Grady -13 Calculated R Grady 78 Calculated T Grady 24 Impression SINUS RHYTHM WITH PREMATURE SUPRAVENTRICULAR COMPLEXES RIGHT BUNDLE BRANCH BLOCK ABNORMAL ECG NO PREVIOUS ECGS AVAILABLE Confirmed by MD SUAREZ VINAYAK ([id number]) on 12/03/2023 4:27:07 PM Recent Results (from the past 14110 hour(s)) ECHO Collection Time: 12/29/23 10:25 AM [...] which included preparing to see the patient, iusm-sz-jusv patient care, completing clinical documentation, obtaining and/or reviewing separately obtained history, performing a medically appropriate examination, counseling and educating the patient/family/caregiver, and ordering medications, tests, or procedures. SIGNATURE: Harvey Purvis APRN.CNP PATIENT NAME: Elis Bills DATE: July 14, 2024 TIME: 12:50 PM PAGER/CONTACT #: documented in this encounter [facility] 07-10-2024 Instructions Harvey Purvis APRN.CNP - 07/10/2024 12:50 PM EST PATIENT PREOPERATIVE INSTRUCTIONS Your surgeon has scheduled for your procedure at this surgery center: [facility]: [phone], [address] [phone] Please read below carefully for your personalized [...] surgery. - YOU MUST HAVE A RESPONSIBLE MICA WASHER GLUER TAKE YOU HOME. A ATTENDANT CHILDREN'S INSTITUTION, CAB OR UBER MICA WASHER GLUER CANNOT BE MADE A RESPONSIBLE MICA WASHER GLUER. - If you are undergoing an outpatient [...] date of surgery. Visitation: Visitors to any [facility] facility: Any individual who is sick should not visit. Visitors to patients with COVID-19 must follow these guidelines, which include wearing a mask, eye protection, gown and gloves. [facility] in [place] Visitation hours: 7 AM to 9 PM. Pre-Surgery Unit - Patients may have up to 2 visitors at a time. PACU recovery Unit - Patients may have up to 1-2 visitors at a time. [facility] [place] Pre-Surgery area - 1 visitor at a [...] Advance Directive, please fax a copy to [phone] or email to for it to be [...] OR ORTHOPEDIC SURGERY: - Orthopedic patients at [facility] listed as outpatient, please bring walker into the building. - Orthopedic patients at [facility] listed as to be admitted, please leave walkers in the car or with a family member. - Orthopedic patients at [facility] [place], please bring the walker into the building [...] Purvis APRN.CNP 07/14/24 documented in this encounter [facility] 06-21-2024 Telephone encounter Note Patient returned my call. Discussed all surgery details. Answered all questions. [facility] 06-21-2024 Miscellaneous Notes Patient returned my call. Discussed all surgery details. Answered all questions. Attempted to contact patient to discuss surgery details. No answer and VM box full. Unable to leave a voice message documented in this encounter [facility] 06-21-2024 Telephone encounter Note Attempted to contact patient to discuss surgery details. No answer and VM box full. Unable to leave a voice message [facility] 06-08-2024 Telephone encounter Note Nebulizer orders signed & faxed back to [facility]. Dalia Segura [facility] 06-08-2024 Miscellaneous Notes Nebulizer orders signed & faxed back to [facility]. Dalia Segura documented in this encounter [facility] 06-08-2024 History of Present illness Narrative [...] PATIENT PRESENTS WITH AN IMPLANTABLE OR ATTACHED WATER USE INSPECTOR: No RADIOLOGY DEPARTMENT: CT; Exam(s) Completed: Chest PERIPHERAL IV DATA: Not applicable SIGNED BY: RT Fernando(Yareli) June 08, 2024 11:03 AM documented in this encounter [facility] 06-08-2024 Note HNO ID: [id number] Author: ERMIAS JANE RT(Yareli) Service: ? Author Type: Warehouse Receiving Clerk Type: Progress Notes Filed: 06/08/2024 11:03 Note [...] PATIENT PRESENTS WITH AN IMPLANTABLE OR ATTACHED WATER USE INSPECTOR: No RADIOLOGY DEPARTMENT: CT; Exam(s) Completed: Chest PERIPHERAL IV DATA: Not applicable SIGNED BY: RT Fernando(R) June 08, 2024 11:03 AM [facility] 06-05-2024 History of Present illness Narrative Images from the original note were not included. NEUROSURGERY FOLLOW UP OFFICE NOTE Lois Kee MD [facility] Date of visit: June 05, 2024 Patient Name: Mr.Donald Tim Bills Date of : 1960 Current Age: [age] year old Sex: male MRN/E# [id number] Last Office Visit: 04/06/2024 Chief Complaint: Patient [...] in agreement with plan. Lois Kee MD [facility] Medical Decision Making: Problems: Moderate: 2+ stable chronic illnesses Data: Unique source(s) for external note(s) reviewed: 1 Unique test result(s) reviewed: 2 Risk: High: High risk from testing/treatment Medical Decision Making Level: 4 - Moderate This note was partially generated using [employer] voice recognition system, and there may be some incorrect words, spellings, and punctuation that were not noted in checking the note before saving. documented in this encounter [facility] 06-05-2024 Note HNO ID: [id number] Author: LOIS KEE MD Service: ? Author Type: Physician Type: Progress Notes Filed: 06/05/2024 10:19 Note Text: NEUROSURGERY FOLLOW UP OFFICE NOTE Lois Kee MD [facility] Date of visit: June 05, 2024 Patient Name: Mr.Donald Tim Bills Date of : 1960 Current Age: [age] year old Sex: male MRN/E# [id number] Last Office Visit: 04/06/2024 Chief Complaint: Patient [...] polyphagia and polyu (more content not included)... [facility] 05-31-2024 Telephone encounter Note Nebulizer order signed & faxed back to Ronal Zaragoza. Dalia Segura [facility] 05-31-2024 Miscellaneous Notes Nebulizer order signed & faxed back to Ronal Zaragoza. Dalia Segura documented in this encounter [facility] 05-11-2024 History of Present illness Narrative Images from the original note were not included. Called pt and Cancelled Appt VIRTUAL VISIT PROGRESS NOTE This is a virtual visit using [employer] Zoom Video Visit. It required patient-provider interaction for the medical decision making as documented below. I have communicated my name and active licensure. The patient's identity and physical location were verified at the time of this visit. Either the patient or their legal independent sales representative has been informed of the risks and benefits of -- and alternatives to -- treatment through a remote evaluation and consents to proceed with the evaluation remotely. [facility] Today's Date: 05/11/2024 Name: Elis Bills : [...] guidance BILATERAL SIDES at L3-4 and L4-5 Tv Production Assistant Needed: Radiofrequency Ablation - YES Anticoagulant - Hold Needed: NO HOLD REQUIRED FOR THIS PROCEDURE Anticoagulant - Currently Taking: None, Plavix (7 days when hold needed) Allergies (relevant): None Scheduling - Mobility (Can Patient independently transfer on/off an OR or Procedure table?): YES (May schedule at any location) Scheduling - Additional Info: None Studies: None Functional Rastafarian: NONE Referrals: No additional considerations at present [...] recent physical therapy. 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 No [...] and assume there are 5 lumbar-type vertebrae. Stock Controller: [facility] Transcribe Date/Time: Nov 19 2023 3:30P Dictated [...] or double vision) Respiratory: Negative (No Cough, Wpqadwmzp-ek-ptjppv, Dyspnea on exertion, wheezing) Cardiovascular: Negative (No [...] guidance BILATERAL SIDES at L3-4 and L4-5 Tv Production Assistant Needed: Radiofrequency Ablation - YES Anticoagulant - Hold Needed: NO HOLD REQUIRED FOR THIS PROCEDURE Anticoagulant - Currently Taking: None, Plavix (7 days when hold needed) Allergies (relevant): None Scheduling - Mobility (Can Patient independently transfer on/off an OR or Procedure table?): YES (May schedule at any location) Scheduling - Additional Info: None Studies: None Functional Rastafarian: NONE Referrals: No additional considerations at present [...] APRN.CNP Pain Management [facility] documented in this encounter [facility] 05-11-2024 Note HNO ID: [id number] Author: BERTHA SCHUMACHER APRN.NABOR Service: ? Author [...] visit. Either the patient or their legal independent sales representative has been informed of the risks and benefits of -- and alternatives to -- treatment through a remote evaluation and consents to proceed with the evaluation remotely. [facility] [place] [facility] Today's Date: 05/11/2024 Name: Elis Bills [...] guidance BILATERAL SIDES at L3-4 and L4-5 Tv Production Assistant Needed: Radiofrequency Ablation - YES Anticoagulant - Hold Needed: NO HOLD REQUIRED FOR THIS PROCEDURE Anticoagulant - Currently Taking: None, Plavix (7 days when hold needed) Allergies (relevant): None Scheduling - Mobility (Can Patient independently transfer on/off an OR or Procedure table?): YES (May schedule at any location) Scheduling - Additional Info: None Studies: None Functional Rastafarian: NONE Referrals: No additional considerations at present [...] with no relief. (more content not included)... [facility] 05-10-2024 Note Addended by: KALEE MAZARIEGOS on: 05/10/2024 08:38 AM Modules accepted: Orders [facility] 05-10-2024 Miscellaneous Notes Addended by: KALEE MAZARIEGOS on: 05/10/2024 08:38 AM Modules accepted: Orders documented in this encounter [facility] 05-10-2024 Nurse Note Order has been [...] ambulatory method. Patient left in good condition. [facility] 05-10-2024 Nurse Note Order has been [...] tablePatient s procedure was performed in an [facility] Procedure room. Pause completed at each [...] allergies Procedure Start: 754 Procedure End: 812 Tv Production Assistant's Name: MEHREEN Are you on a blood [...] an antibiotic: N documented in this encounter [facility] 05-10-2024 Nurse Note Procedure to be performed: L3/4 - L4/5 Unilateral Right Radiofrequency Ablation Patient was walked from exam room to procedure room and assisted onto the procedure tablePatient s procedure was performed in an [facility] Procedure room. Pause completed at each [...] allergies Procedure Start: 754 Procedure End: 812 [facility] 05-10-2024 Instructions Jael Lamas LPN - [...] care and why. documented in this encounter [facility] 05-10-2024 Note HNO ID: [id number] Author: EVERTON DECKER MD Service: ? Author Type: Physician Type: Progress Notes Filed: 05/10/2024 08:31 Note Text: [facility] Date: 05/10/2024 Patient name: Elis Bills [...] or double vision) Respiratory: Negative (No Cough, Hwwixuqjh-di-cgbbfe, Dyspnea on exertion, wheezing) Cardiovascular: Negative (No [...] appropriate Assessment and Plan: As noted above [place] protocol documentation / Pre-Procedure Checklist: Consent: Obtained [...] and was transpo (more content not included)... [facility] 05-10-2024 History of Present illness Narrative [facility] Date: 05/10/2024 Patient name: Elis Bills [...] or double vision) Respiratory: Negative (No Cough, Xjsxoccko-mi-hvpgox, Dyspnea on exertion, wheezing) Cardiovascular: Negative (No [...] appropriate Assessment and Plan: As noted above [place] protocol documentation / Pre-Procedure Checklist: Consent: Obtained [...] ROGERSA Pain Management [facility] Review of Systems Constitutional: Positive for activity change. Musculoskeletal: Positive for back pain and gait problem. documented in this encounter [facility] 05-10-2024 Note HNO ID: [id number] Author: CRICKET MARIE LPN Service: ? Author Type: LICENSED NURSE Type: Progress Notes Filed: 05/10/2024 08:31 Note Text: Review of Systems Constitutional: Positive for activity change. Musculoskeletal: Positive for back pain and gait problem. [facility] 05-10-2024 Nurse Note Tv Production Assistant's Name: MEHREEN Are you on a blood [...] Are you currently on an antibiotic: N [facility] 04-28-2024 Telephone encounter Note Images from the original note were not included. [facility] 04-28-2024 Miscellaneous Notes Images from the [...] . Celeste Tong documented in this encounter [facility] 04-27-2024 Telephone encounter Note I spoke to Vivian Fried after my discussion with the pt and she is going to attempt to get him scheduled in that time slot, please defer to her. Thanks. [facility] 04-27-2024 Telephone encounter Note Called patient [...] sides done. Please clarify . Celeste Tong [facility] 04-27-2024 Telephone encounter Note Opened in errori [facility] 04-27-2024 Miscellaneous Notes Opened in errori documented in this encounter [facility] 04-27-2024 Instructions Bertha Schumacher APRN.CNP - 04/27/2024 3:33 PM EDT Ice and heat as tolerated Activity as tolerated documented in this encounter [facility] 04-27-2024 History of Present illness Narrative Images from the original note were not included. VIRTUAL VISIT PROGRESS NOTE This is a virtual visit using [employer] Zoom Video Visit. It required patient-provider interaction for the medical decision making as documented below. I have communicated my name and active licensure. The patient's identity and physical location were verified at the time of this visit. Either the patient or their legal independent sales representative has been informed of the risks and benefits of -- and alternatives to -- treatment through a remote evaluation and consents to proceed with the evaluation remotely. [facility] [place] [facility] Today's Date: 04/27/2024 Name: Elis Bills : 1960 Purpose: Follow-up Patient Evaluation - This is an established patient, returning today for continued evaluation and management of the chief complaint noted below (Telemedicine) Chief complaint: low back pain Referring Clinician: Pertinent Past Medical History: COPD, Obesity, HTN, HLD, CVA Pertinent Past Surgeries: B/L THR This is a virtual visit via Zoom, Phone and/or [employer]. It required patient-provider interaction for the medical [...] guidance BILATERAL SIDES at L3-4 and L4-5 Tv Production Assistant Needed: Medial Branch Blocks - YES Anticoagulant - Hold Needed: NO HOLD REQUIRED FOR THIS PROCEDURE Anticoagulant - Currently Taking: None Allergies (relevant): None Scheduling - Mobility (Can Patient independently transfer on/off an OR or Procedure table?): YES (May schedule at any location) Scheduling - Additional Info: None Studies: None Functional Rastafarian: NONE Referrals: No additional considerations at present [...] recent physical therapy. 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 No [...] and assume there are 5 lumbar-type vertebrae. Stock Controller: [employer] Transcribe Date/Time: Nov 19 2023 3:30P [...] or double vision) Respiratory: Negative (No Cough, Mlznosxao-zd-pwwshz, Dyspnea on exertion, wheezing) Cardiovascular: Negative (No [...] guidance BILATERAL SIDES at L3-4 and L4-5 Tv Production Assistant Needed: Radiofrequency Ablation - YES Anticoagulant - Hold Needed: NO HOLD REQUIRED FOR THIS PROCEDURE Anticoagulant - Currently Taking: None, Plavix (7 days when hold needed) Allergies (relevant): None Scheduling - Mobility (Can Patient independently transfer on/off an OR or Procedure table?): YES (May schedule at any location) Scheduling - Additional Info: None Studies: None Functional Rastafarian: NONE Referrals: No additional considerations at present [...] APRN.CNP Pain Management [facility] documented in this encounter [facility] 04-27-2024 Note HNO ID: [id number] Author: BERTHA SCHUMACHER APRN.CNP Service: ? Author Type: Nurse Practitioner Type: Progress Notes Filed: 04/27/2024 15:33 Note Text: VIRTUAL VISIT PROGRESS NOTE This is a virtual visit using [employer] Zoom Video Visit. It required patient-provider interaction for the medical decision making as documented below. I have communicated my name and active licensure. The patient's identity and physical location were verified at the time of this visit. Either the patient or their legal independent sales representative has been informed of the risks and benefits of -- and alternatives to -- treatment through a remote evaluation and consents to proceed with the evaluation remotely. [facility] Today's Date: 04/27/2024 Name: Elis Bills : 1960 Purpose: Follow-up Patient Evaluation - This is an established patient, returning today for continued evaluation and management of the chief complaint noted below (Telemedicine) Chief complaint: low back pain Referring Clinician: Pertinent Past Medical History: COPD, Obesity, HTN, HLD, CVA Pertinent Past Surgeries: B/L THR This is a virtual visit via Zoom, Phone and/or Practical [employer]. It required patient-provider interaction for the medical [...] guidance BILATERAL SIDES at L3-4 and L4-5 Tv Production Assistant Needed: Medial Branch Blocks - YES Anticoagulant - Hold Needed: NO HOLD REQUIRED FOR THIS PROCEDURE Anticoagulant - Currently Taking: None Allergies (relevant): None Scheduling - Mobility (Can Patient independently transfer on/off an OR or Procedure table?): YES (May schedule at any location) Scheduling - Additional Info: None Studies: None Functional Rastafarian: NONE Referrals: No additional considerations at present [...] recent physical therapy. 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 [facility] 04-26-2024 Nurse Note Order has [...] ambulatory method. Patient left in good condition. [facility] 04-26-2024 Nurse Note Order has been [...] tablePatient s procedure was performed in an [facility] Procedure room. Pause completed at each [...] allergies Procedure Start: 807 Procedure End: 817 Tv Production Assistant's Name: Mehreen Are you on a blood [...] an antibiotic: no documented in this encounter [facility] 04-26-2024 Instructions Greta Guillen LPN - [...] care and why. documented in this encounter [facility] 04-26-2024 Note HNO ID: [id number] Author: EVERTON DECKER MD Service: ? Author Type: Physician Type: Progress Notes Filed: 04/26/2024 08:51 Note Text: [facility] Date: 04/26/2024 Patient name: Elis Bills [...] or double vision) Respiratory: Negative (No Cough, Clozrzmlr-le-ihmfji, Dyspnea on exertion, wheezing) Cardiovascular: Negative (No [...] appropriate Assessment and Plan: As noted above [place] protocol documentation / Pre-Procedure Checklist: Consent: Obtained [...] stroke, epidural hemat (more content not included)... [facility] 04-26-2024 History of Present illness Narrative [facility] Date: 04/26/2024 Patient name: Elis Bills [...] or double vision) Respiratory: Negative (No Cough, Cumhclwnm-ap-lbpska, Dyspnea on exertion, wheezing) Cardiovascular: Negative (No [...] appropriate Assessment and Plan: As noted above [place] protocol documentation / Pre-Procedure Checklist: Consent: Obtained [...] ROGERSA Pain Management [facility] Review of Systems Constitutional: Positive for [...] is not nervous/anxious. documented in this encounter [facility] 04-26-2024 Nurse Note Procedure to be performed: L3/4 - L4/5 Bilateral Medial Branch Block without steroid Patient was wheeled on stretcher from pre op bay to procedure room and assisted onto the procedure tablePatient s procedure was performed in an [facility] Procedure room. Pause completed at each [...] allergies Procedure Start: 807 Procedure End: 817 [facility] 04-26-2024 Note HNO ID: [id number] Author: GRETA GUILLEN LPN Service: ? Author [...] suicidal ideas. The patient is not nervous/anxious. [facility] 04-26-2024 Nurse Note Tv Production Assistant's Name: Mehreen Are you on a blood [...] you currently on an antibiotic: no T [facility] 04-06-2024 History of Present illness Narrative Images from the original note were not included. NEUROSURGERY CONSULT NOTE Lois Kee MD [facility] Date of visit: April 06, 2024 Patient Name: Mr.Donald Tim Bills Date of : 1960 Current Age: [age] year old Sex: male MRN/E# [id number] Last Office Visit: Visit date not found [...] in agreement with plan. Lois Kee MD [facility] Medical Decision Making: Problems: Moderate: New problem with uncertain prognosis Data: Unique source(s) for external note(s) reviewed: 1 Unique test result(s) reviewed: 1 Unique test(s) ordered: 1 Risk: Moderate: Moderate risk from testing/treatment Medical Decision Making Level: 4 - Moderate This note was partially generated using [employer] voice recognition system, and there may be some incorrect words, spellings, and punctuation that were not noted in checking the note before saving. documented in this encounter [facility] 04-06-2024 Note HNO ID: [id number] Author: LOIS KEE MD Service: ? Author Type: Physician Type: Progress Notes Filed: 04/06/2024 10:06 Note Text: NEUROSURGERY CONSULT NOTE Lois Kee MD [facility] Date of visit: April 06, 2024 Patient Name: Mr.Donald Tim Bills Date of : 1960 Current Age: [age] year old Sex: male MRN/E# [id number] Last Office Visit: Visit date not found [...] (chronic obstructive pulmonary disease) (HCC) Hypercholesteremia Stroke ([facility]) No past surgical history [...] place and ti (more content not included)... [facility] 03-31-2024 Telephone encounter Note Procedure(s) [...] No 9. Does this procedure require a screw driver operator? Yes If yes, has patient been notified that a screw driver operator is needed and must be present at [...] their 2nd dose of the COVID vaccine.) [facility] 03-31-2024 Miscellaneous Notes Procedure(s) being scheduled: [...] No 9. Does this procedure require a screw driver operator? Yes If yes, has patient been notified that a screw driver operator is needed and must be present at [...] the COVID vaccine.) documented in this encounter [facility] 03-30-2024 Telephone encounter Note Medial Branch Block (Diagnostic only, NO STEROIDS) under fluoroscopic guidance BILATERAL SIDES at L3-4 and L4-5 Called pt to schedule procedure, LVChip Rubalcava [facility] 03-30-2024 Miscellaneous Notes Medial Branch Block (Diagnostic only, NO STEROIDS) under fluoroscopic guidance BILATERAL SIDES at L3-4 and L4-5 Called pt to schedule procedure, DICK Rubalcava documented in this encounter [facility] 03-30-2024 Instructions Bertha Schumacher APRN.CNP - 03/30/2024 2:44 PM EDT Ice and heat as tolerated Activity as tolerated documented in this encounter [facility] 03-30-2024 History of Present illness Narrative [...] visit. Either the patient or their legal independent sales representative has been informed of the risks and benefits of -- and alternatives to -- treatment through a remote evaluation and consents to proceed with the evaluation remotely. [facility] Today's Date: 03/30/2024 Name: Elis Bills [...] (ILESI) under fluoroscopic guidance NONE at L4-5 Tv Production Assistant Needed: Epidural - YES Anticoagulant - Hold Needed: Lumbar Epidural (HOLD) Anticoagulant - Currently Taking: Plavix (7 days when hold needed) Allergies (relevant): None Scheduling - Mobility (Can Patient independently transfer on/off an OR or Procedure table?): YES (May schedule at any location) Scheduling - Additional Info: None Studies: None Functional Rastafarian: NONE Referrals: No additional considerations at present [...] recent physical therapy. 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 No [...] and assume there are 5 lumbar-type vertebrae. Stock Controller: [facility] Transcribe Date/Time: Nov 19 2023 3:30P Dictated [...] or double vision) Respiratory: Negative (No Cough, Joterkofx-ja-nawltf, Dyspnea on exertion, wheezing) Cardiovascular: Negative (No [...] guidance BILATERAL SIDES at L3-4 and L4-5 Tv Production Assistant Needed: Medial Branch Blocks - YES Anticoagulant - Hold Needed: NO HOLD REQUIRED FOR THIS PROCEDURE Anticoagulant - Currently Taking: None Allergies (relevant): None Scheduling - Mobility (Can Patient independently transfer on/off an OR or Procedure table?): YES (May schedule at any location) Scheduling - Additional Info: None Studies: None Functional Rastafarian: NONE Referrals: No additional considerations at present [...] APRN.CNP Pain Management [facility] documented in this encounter [facility] 03-30-2024 Note HNO ID: [id number] Author: BERTHA SCHUMACHER APRN.CNP Service: ? Author [...] visit. Either the patient or their legal independent sales representative has been informed of the risks and benefits of -- and alternatives to -- treatment through a remote evaluation and consents to proceed with the evaluation remotely. [facility] Today's Date: 03/30/2024 Name: Elis Bills : 1960 Purpose: Follow-up Patient Evaluation - This is an established patient, returning today for continued evaluation and management of the chief complaint noted below (Telemedicine) Chief complaint: low back pain Referring Clinician: Pertinent Past Medical History: COPD, Obesity, HTN, HLD, CVA Pertinent Past Surgeries: B/L THR This is a virtual visit via Zoom, Phone and/or [employer]. It required patient-provider interaction for the medical [...] (ILESI) under fluoroscopic guidance NONE at L4-5 Tv Production Assistant Needed: Epidural - YES Anticoagulant - Hold Needed: Lumbar Epidural (HOLD) Anticoagulant - Currently Taking: Plavix (7 days when hold needed) Allergies (relevant): None Scheduling - Mobility (Can Patient independently transfer on/off an OR or Procedure table?): YES (May schedule at any location) Scheduling - Additional Info: None Studies: None Functional Rastafarian: NONE Referrals: No additional considerations at present [...] changing pain manage (more content not included)... [facility] 03-17-2024 Telephone encounter Note Spoke with patient following up from procedure. Patient states they are doing well, no questions or concerns at this time. Stephan Pacheco CMA [facility] 03-17-2024 Miscellaneous Notes Spoke with patient following up from procedure. Patient states they are doing well, no questions or concerns at this time. Stephan Pacheco CMA documented in this encounter [facility] 03-16-2024 History of Present illness Narrative [facility] Date: 03/16/2024 Patient name: Elis Bills [...] or double vision) Respiratory: Negative (No Cough, Jqsrihalu-le-hxqlkp, Dyspnea on exertion, wheezing) Cardiovascular: Negative (No Chest Pain, Tightness, Pressure, Palpitations) Gastrointestinal: Negative (No Abdominal pain, Nausea, Vomiting, Constipation, Diarrhea) Genitourinary: Negative (No dysuria) Hematologic: Negative (No bleeding, bruising) OB: is Denied or Not Applicable Endocrine: Negative (No hot/cold intolerance) Psychiatric: Negative (No depression, anxiety or suicidal ideation) PAST MEDICAL HISTORY No date: COPD (chronic obstructive pulmonary disease) ([facility]) No date: Hypercholesteremia No date: Stroke ([facility]) No past surgical history [...] appropriate Assessment and Plan: As noted above [place] protocol documentation / Pre-Procedure Checklist: Consent: Obtained [...] ROGERSA Pain Management [facility] Review of Systems Constitutional: Negative for [...] is not nervous/anxious. documented in this encounter [facility] 03-16-2024 Note HNO ID: [id number] Author: EVERTON DECKER MD Service: ? Author Type: Physician Type: Progress Notes Filed: 03/16/2024 11:37 Note Text: [facility] Date: 03/16/2024 Patient name: Elis Bills [...] or double vision) Respiratory: Negative (No Cough, Gpzuxohhy-nv-zrajng, Dyspnea on exertion, wheezing) Cardiovascular: Negative (No [...] appropriate Assessment and Plan: As noted above [place] protocol documentation / Pre-Procedure Checklist: Consent: Obtained in writing prior to procedure I had a nice discussion with the patient today about their current pain and the pathology that could be causing it We discussed different treatment options, including risks, benefits and alternatives. We agreed to proceed as previously discussed, or the (more content not included)... [facility] 03-16-2024 Nurse Note Order has [...] ambulatory method. Patient left in good condition. [facility] 03-16-2024 Nurse Note Order has been [...] tablePatient s procedure was performed in an [facility] Procedure room. Pause completed at each [...] allergies Procedure Start: 1106 Procedure End: 1111 Tv Production Assistant's Name: MEHREEN Are you on a blood [...] receive one? N documented in this encounter [facility] 03-16-2024 Instructions Cricket Marie LPN - [...] care and why. documented in this encounter [facility] 03-16-2024 Nurse Note Procedure to be performed: L4/L5 Interlaminar Epidural Steroid Injection Patient was wheeled on stretcher from pre op bay to procedure room and assisted onto the procedure tablePatient s procedure was performed in an [facility] Procedure room. Pause completed at each [...] allergies Procedure Start: 1107 Procedure End: 1111 [facility] 03-16-2024 Note HNO ID: [id number] Author: KARTHIK LOPEZ LPN Service: ? Author [...] suicidal ideas. The patient is not nervous/anxious. [facility] 03-16-2024 Nurse Note Tv Production Assistant's Name: MEHREEN Are you on a blood [...] are you scheduled to receive one? N [facility] 03-16-2024 Telephone encounter Note Could you proof read this please. Thanks. [facility] 03-16-2024 Miscellaneous Notes Could you proof read this please. Thanks. documented in this encounter [facility] 03-15-2024 Telephone encounter Note Called and spoke with patient and informed him that he will need to speak with [employer] before I can place him back on the schedule for this procedure. I will need this procedure paid for and cleared by them before we can reschedule. Patient voiced understanding. Vivian Fried [facility] 03-15-2024 Miscellaneous Notes Called and spoke [...] (Caregivers Name): n If No - Which [facility] Leadership Casino Dealer Did You Speak With Regarding This Patient: n Was an appointment scheduled (Y/N): n/a Reason patient was requesting visit (RFV/signs and symptoms/diagnosis) : procedure Person calling if other than patient: Spouse, Mehreen Bills Return call to if other than patient: y Best contact number: [phone] Thank you, Johnny Hdez March 14, 2024 4:14 PM documented in this encounter [facility] 03-15-2024 Telephone encounter Note ----- Message [...] with this appt. Was Patient Referred to [facility]/Seek Emergency Treatment (Y/N): n Did Patient Agree (Y/N): n Was An Attempt Made To Transfer The Patient To The Office (Y/N): n Were You Able To Reach Someone At The Office (Y/N): n If Yes - Patient Was Transferred To (Caregivers Name): n If No - Which [facility] Leadership Casino Dealer Did You Speak With Regarding This Patient: n Was an appointment scheduled (Y/N): n/a Reason patient was requesting visit (RFV/signs and symptoms/diagnosis) : procedure Person calling if other than patient: Spouse, Mehreen Bills Return call to if other than patient: y Best contact number: [phone] Thank you, Johnny Hdez March 14, 2024 4:14 PM [facility] 03-13-2024 Telephone encounter Note Patient Last [...] Information Insurance Name MARANDA Patient's Insurance Case# [id number] Ordering Provider Bertha Schumacher Approved Services N/A Denied Services [id number] - NJX DX/THER SBST INTRLMNR LMBR/SAC W/IMG GDN Alternative Recommendation N/A *Service which can be approved in place of denied service. Clinical Documentation Provided Office Visit 11/11/2023, 09/23/2023 [facility] 02/24/2024, 12/22/2023, 11/25/2023, 10/29/2023 Procedure 12/16/2023, 10/28/2023 CT CHEST WO IVCON 12/29/2023 XR CHEST 1V FRONTAL 12/01/2023 MRI LUMBAR SPINE WO IVCON 11/19/2023 CT CHEST WO IVCON 09/02/2023 Peer to Peer Instructions Peer to Peer , options: 1-2 Does Peer to Peer need to be scheduled? Yes Who can complete the Peer to Peer? Dr, PA, FRESH WORK INSPECTOR, LN Additional Peer to Peer Instructions You can call for the peer to peer at the date and time of your convenience Appeal Instructions Appeal Address [address] [address], [facility], [address] Appeal Fax# No fax# available Required Form(s) Yes, Please see attached or can be found at [email or web address] ([employer]). Additional Appeal Instructions Send it attention to: Appeals department. Include: coversheet with patient's and case information, a formal appeal letter and attach any pertinent supporting clinical documentation. Also, insurance requires a formal appeal form filled out if you would like to submit a written appeal. Facility Information Location [facility] [id number] Tax ID# [id number] [facility] 03-13-2024 Miscellaneous Notes Patient Last Name [...] Information Insurance Name MMO Patient's Insurance Case# [id number] Ordering Provider Bertha Schumacher Approved Services N/A Denied Services [id number] - NJX DX/THER SBST INTRLMNR LMBR/SAC W/IMG GDN Alternative Recommendation N/A *Service which can be approved in place of denied service. Clinical Documentation Provided Office Visit 11/11/2023, 09/23/2023 [facility] 02/24/2024, 12/22/2023, 11/25/2023, 10/29/2023 Procedure 12/16/2023, 10/28/2023 CT CHEST WO IVCON 12/29/2023 XR CHEST 1V FRONTAL 12/01/2023 MRI LUMBAR SPINE WO IVCON 11/19/2023 CT CHEST WO IVCON 09/02/2023 Peer to Peer Instructions Peer to Peer , options: 1-2 Does Peer to Peer need to be scheduled? Yes Who can complete the Peer to Peer? Dr, PA, FRESH WORK INSPECTOR, LN Additional Peer to Peer Instructions You can call for the peer to peer at the date and time of your convenience Appeal Instructions Appeal Address [address] [address], [facility], [address] Appeal Fax# No fax# available Required Form(s) Yes, Please see attached or can be found at [email or web address] ([employer]). Additional Appeal Instructions Send it attention to: Appeals department. Include: coversheet with patient's and case information, a formal appeal letter and attach any pertinent supporting clinical documentation. Also, insurance requires a formal appeal form filled out if you would like to submit a written appeal. Facility Information Location [facility] [id number] Tax ID# [id number] documented in this encounter [facility] 02-25-2024 Telephone encounter Note Procedure(s) being [...] No 9. Does this procedure require a screw driver operator? Yes If yes, has patient been notified that a screw driver operator is needed and must be present at [...] dose of the COVID vaccine.) Diane Lagos [facility] 02-25-2024 Miscellaneous Notes Procedure(s) being scheduled: [...] No 9. Does this procedure require a screw driver operator? Yes If yes, has patient been notified that a screw driver operator is needed and must be present at [...] vaccine.) Diane Lagos documented in this encounter [facility] 02-25-2024 Telephone encounter Note The Anticoag Management letter has been sent to the PCP, Pilar Steele DO via facsimile. [phone] Diane Lagos [facility] 02-25-2024 Miscellaneous Notes The Anticoag Management letter has been sent to the PCP, Pilar Steele DO via facsimile. [phone] Diane Lagos documented in this encounter [facility] 02-25-2024 Telephone encounter Note Outbound Call to patient to schedule Injection - Epidural Steroid Injection - Interlaminar Approach (ILESI) under fluoroscopic guidance NONE at L4-5 (Currently Taking: Plavix needs 7 day hold) - Reached ; [facility] [phone] (cell/home) JASS Block [facility] 02-25-2024 Miscellaneous Notes Outbound Call to patient to schedule Injection - Epidural Steroid Injection - Interlaminar Approach (ILESI) under fluoroscopic guidance NONE at L4-5 (Currently Taking: Plavix needs 7 day hold) - Reached ; [facility] [phone] (cell/home) JASS Block documented in this encounter [facility] 02-24-2024 Instructions Bertha Schumacher APRN.CNP - 02/24/2024 4:21 PM EDT Ice and heat as tolerated Activity as tolerated documented in this encounter [facility] 02-24-2024 History of Present illness Narrative [...] visit. Either the patient or their legal independent sales representative has been informed of the risks and benefits of -- and alternatives to -- treatment through a remote evaluation and consents to proceed with the evaluation remotely. [facility] Today's Date:02/24/2024 Name: Elis Bills : [...] Medications Interventional Procedures: None Studies: None Functional Rastafarian: NONE Referrals: No additional considerations at present [...] recent physical therapy. 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 No [...] and assume there are 5 lumbar-type vertebrae. Stock Controller: [facility] Transcribe Date/Time: Nov 19 2023 [...] or double vision) Respiratory: Negative (No Cough, Jjdptdefn-pz-rupdhj, Dyspnea on exertion, wheezing) Cardiovascular: Negative (No [...] (ILESI) under fluoroscopic guidance NONE at L4-5 Tv Production Assistant Needed: Epidural - YES Anticoagulant - Hold Needed: Lumbar Epidural (HOLD) Anticoagulant - Currently Taking: Plavix (7 days when hold needed) Allergies (relevant): None Scheduling - Mobility (Can Patient independently transfer on/off an OR or Procedure table?): YES (May schedule at any location) Scheduling - Additional Info: None Studies: None Functional Rastafarian: NONE Referrals: No additional considerations at present [...] APRN.CNP Pain Management [facility] documented in this encounter [facility] 02-24-2024 Note HNO ID: [id number] Author: BERTHA SCHUMACHER APRN.CNP Service: ? Author [...] visit. Either the patient or their legal independent sales representative has been informed of the risks and benefits of -- and alternatives to -- treatment through a remote evaluation and consents to proceed with the evaluation remotely. [facility] Today's Date:02/24/2024 Name: Elis Bills : 1960 [...] Medications Interventional Procedures: None Studies: None Functional Rastafarian: NONE Referrals: No additional considerations at present [...] is unknown. RED (more content not included)... [facility] 01-24-2024 Telephone encounter Note Please assist Catherine Champion APRN.NABOR [facility] Work Phone: 01-24-2024 Miscellaneous Notes Please assist Catherine Champion APRN.CNP documented in this encounter [facility] 01-17-2024 Telephone encounter Note TIMO: 11/11/2023 Future OV: 02/10/2024 Call transferred to Pat[place] RN from [address] Mehreen, patient's called. Patient name and [...] worsening SOB. is agreeable and verbalized understanding. [facility] 01-17-2024 Miscellaneous Notes TIMO: 11/11/2023 Future OV: 02/10/2024 Call transferred to Paterson NEENA from [address] Mehreen, patient's called. Patient name and [...] and verbalized understanding. documented in this encounter [facility] 01-11-2024 Telephone encounter Note Pharmacy faxed requesting the following refill. TIMO: 11/11/23-patient requesting 90 day supply be [facility]. Requested Prescriptions Pending Prescriptions Disp Refills mometasone-formoterol (DULERA) 200-5 mcg/actuation inhaler 39 g 3 Sig: Inhale 2 Puffs as instructed two times a day. Patient Phone numbers: [phone] (home) Request is for script(s) to be escript to pharmacy. Edel Cramer [facility] 01-11-2024 Miscellaneous Notes Pharmacy faxed requesting the following refill. TIMO: 11/11/23-patient requesting 90 day supply be sent to [facility]. Requested Prescriptions Pending Prescriptions Disp Refills mometasone-formoterol (DULERA) 200-5 mcg/actuation inhaler 39 g 3 Sig: Inhale 2 Puffs as instructed two times a day. Patient Phone numbers: [phone] (home) Request is for script(s) to be escript to pharmacy. Edel Cramer documented in this encounter [facility] 01-06-2024 Telephone encounter Note Rx mail [...] for wheezing/shortness of breath. Patient Phone numbers: [phone] (home) Request is for script(s) to be escript to mail order [facility]. Dalia Segura [facility] 01-06-2024 Miscellaneous Notes Rx mail pharmacy [...] for wheezing/shortness of breath. Patient Phone numbers: [phone] (home) Request is for script(s) to be escript to mail order [facility]. Dalia Segura documented in this encounter [facility] 01-03-2024 Telephone encounter Note Attempted to contact patient via telephone. Patient telephone extreme static and was unable to speak with patient. Sent [employer] message regarding message below. Alen Mayorga MD15 minutes ago (3:05 PM) CT chest shows stable small/tiny nodules. Further decision for continued surveillance to be made by Dr. Womack at subsequent office visits. CT shows dilated pulmonary artery but recent Echo shows normal RV size and function. Brooke Her, RN [facility] 01-03-2024 Miscellaneous Notes Attempted to contact patient via telephone. Patient telephone extreme static and was unable to speak with patient. Sent [employer] message regarding message below. Alen Mayorga MD15 [...] size and function. documented in this encounter [facility] 01-03-[address] chest shows stable small/tiny nodules. Further decision for continued surveillance to be made by Dr. Womack at subsequent office visits. CT shows dilated pulmonary artery but recent Echo shows normal RV size and function. [facility] Work Phone: 12-29-2023 History of Present [...] PATIENT PRESENTS WITH AN IMPLANTABLE OR ATTACHED WATER USE INSPECTOR: No RADIOLOGY DEPARTMENT: CT; Exam(s) Completed: Chest PERIPHERAL IV DATA: Not applicable SIGNED BY: ADRIANA Gaspar) December 29, 2023 11:15 AM documented in this encounter [facility] 12-29-2023 Note HNO ID: [id number] Author: ROSE VICTORIA RT(R) Service: Radiology Author Type: Warehouse Receiving Clerk Type: Progress Notes Filed: 12/29/2023 11:15 Note [...] PATIENT PRESENTS WITH AN IMPLANTABLE OR ATTACHED WATER USE INSPECTOR: No RADIOLOGY DEPARTMENT: CT; Exam(s) Completed: Chest PERIPHERAL IV DATA: Not applicable SIGNED BY: RT Chasity(R) December 29, 2023 11:15 AM [facility] 12-22-2023 History of Present illness [...] visit. Either the patient or their legal independent sales representative has been informed of the risks and benefits of -- and alternatives to -- treatment through a remote evaluation and consents to proceed with the evaluation remotely. [facility] Today's Date:12/22/23 Name: Elis Bills : 1960 Purpose: Post-Procedure Evaluation (Telemedicine) Chief complaint: low back pain Referring Clinician: Pertinent Past Medical History: COPD, Obesity, HTN, HLD, CVA Pertinent Past Surgeries: B/L THR This is a virtual visit via Zoom, Phone and/or [employer]. It required patient-provider interaction for the medical [...] Risk Tool Date Completed 09/23/2023 Comments 0 MOHINEDR-7 Anxiety Score 0 Completed Date 09/23/2023 PHQ9P [...] recent physical therapy. 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 No [...] and assume there are 5 lumbar-type vertebrae. Stock Controller: PSCB Transcribe Date/Time: Nov 19 2023 3:30P [...] or double vision) Respiratory: Negative (No Cough, Aowmxycpb-dx-umyxpj, Dyspnea on exertion, wheezing) Cardiovascular: Negative (No [...] spondylosis (primary encounter diagnosis) PLAN: Elis Tim Sajnu would benefit from the following to reach personal goals for decreasing pain, improving function and work participation, and/or improving quality of life: Medications: No Changes - Continue Current Medications Interventional Procedures: None Studies: None Functional Rastafarian: NONE Referrals: No additional considerations at present [...] APRN.CNP Pain Management [facility] documented in this encounter [facility] 12-22-2023 Note HNO ID: [id number] Author: YASHIRA GONSALES APRN.CNP Service: ? Author [...] visit. Either the patient or their legal independent sales representative has been informed of the risks and benefits of -- and alternatives to -- treatment through a remote evaluation and consents to proceed with the evaluation remotely. [facility] Today's Date:12/22/23 Name: Elis Bills : 1960 Purpose: Post-Procedure Evaluation (Telemedicine) Chief complaint: low back pain Referring Clinician: Pertinent Past Medical History: COPD, Obesity, HTN, HLD, CVA Pertinent Past Surgeries: B/L THR This is a virtual visit via Zoom, Phone and/or [employer]. It required patient-provider interaction for the medical [...] recent physical therapy. 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 [facility] 12-22-2023 Instructions Yashira Gonsales APRN.CLINICAL ADMINISTRATOR - 12/22/2023 3:52 PM EDT Ice and heat as tolerated Activity as tolerated documented in this encounter [facility] 12-17-2023 Telephone encounter Note Cutesy call made to follow-up after procedure. No answer, unable to leave a message. Greta Guillen LPN [facility] 12-17-2023 Miscellaneous Notes Cutesy call made to follow-up after procedure. No answer, unable to leave a message. Greta Guillen LPN documented in this encounter [facility] 12-16-2023 Note HNO ID: [id number] Author: DHIRAJ HERR MD Service: ? Author Type: Physician Type: Progress Notes Filed: 12/16/2023 12:55 Note Text: [facility] Date: 12/16/2023 Patient name: Elis Bills [...] or double vision) Respiratory: Negative (No Cough, Twecvpsmq-zp-fiirtl, Dyspnea on exertion, wheezing) Cardiovascular: Negative (No [...] appropriate Assessment and Plan: As noted above [place] protocol documentation / Pre-Procedure Checklist: Consent: Obtained [...] nerve damage, paral (more content not included)... [facility] 12-16-2023 History of Present illness Narrative [facility] Date: 12/16/2023 Patient name: Elis Bills [...] or double vision) Respiratory: Negative (No Cough, Gvsvnrghp-kf-frihjz, Dyspnea on exertion, wheezing) Cardiovascular: Negative (No [...] appropriate Assessment and Plan: As noted above [place] protocol documentation / Pre-Procedure Checklist: Consent: Obtained [...] MD Pain Management [facility] Review of Systems Constitutional: Positive for [...] is not nervous/anxious. documented in this encounter [facility] 12-16-2023 Nurse Note Order has been [...] ambulatory method. Patient left in good condition. [facility] 12-16-2023 Nurse Note Order has been [...] tablePatient s procedure was performed in an [facility] Procedure room. Pause completed at each [...] allergies Procedure Start: 1047 Procedure End: 1051 Tv Production Assistant's Name: mehreen Are you on a blood [...] receive one? n documented in this encounter [facility] 12-16-2023 Instructions Jael Lamas LPN - [...] care and why. documented in this encounter [facility] 12-16-2023 Nurse Note Procedure to be performed: BILATERAL L3/L4, L4/L5 LUMBAR MEDIAL BRANCH BLOCK Patient was wheeled on stretcher from pre op bay to procedure room and assisted onto the procedure tablePatient s procedure was performed in an [facility] Procedure room. Pause completed at each [...] allergies Procedure Start: 1047 Procedure End: 1051 [facility] 12-16-2023 Note HNO ID: [id number] Author: KALEE MAZARIEGOS LPN Service: ? Author [...] suicidal ideas. The patient is not nervous/anxious. [facility] 12-16-2023 Nurse Note Tv Production Assistant's Name: mehreen Are you on a blood [...] you scheduled to receive one? n T [facility] 12-14-2023 Telephone encounter Note Patient Last [...] Information Insurance Name MARANDA Patient's Insurance Case# [id number] Ordering Provider Bertha Schumacher Approved Services N/A Denied Services [id number] - NJX DX/THER AGT PVRT FACET JT LMBR/SAC 1 LEVEL 61551 - NJX DX/THER AGT PVRT FACET JT LMBR/SAC 2ND LEVEL Alternative Recommendation N/A *Service which can be approved in place of denied service. Clinical Documentation Provided [facility] 11/25/2023, 10/29/2023 FOLLOW UP APPOITNMENT WHEN PROVIDED SPECIFIED 12/02/2023 XR CHEST 1V FRONTAL 12/01/2023 MRI LUMBAR SPINE WO IVCON 11/19/2023 Peer to Peer Instructions Peer to Peer , options: 1-2 Does Peer to Peer need to be scheduled? Yes Who can complete the Peer to Peer? Dr, PA, FRESH WORK INSPECTOR, LN Additional Peer to Peer Instructions You can call for the peer to peer at the date and time of your convenience Appeal Instructions Appeal Address [address] [address], [facility], [address] Appeal Fax# No fax# available Required Form(s) Yes, Please see attached or can be found at [email or web address] ([employer]). Additional Appeal Instructions Send it attention to: Appeals department. Include: coversheet with patient's and case information, a formal appeal letter and attach any pertinent supporting clinical documentation. Also, insurance requires a formal appeal form filled out if you would like to submit a written appeal. Facility Information Location [facility] [id number] Tax ID# [id number] [facility] 12-14-2023 Miscellaneous Notes Patient Last Name [...] Information Insurance Name MARANDA Patient's Insurance Case# [id number] Ordering Provider Bertha Schumacher Approved Services N/A Denied Services 00392 - NJX DX/THER AGT PVRT FACET JT LMBR/SAC 1 LEVEL [id number] - NJX DX/THER AGT PVRT FACET JT LMBR/SAC 2ND LEVEL Alternative Recommendation N/A *Service which can be approved in place of denied service. Clinical Documentation Provided [facility] 11/25/2023, 10/29/2023 FOLLOW UP APPOITNMENT WHEN PROVIDED SPECIFIED 12/02/2023 XR CHEST 1V FRONTAL 12/01/2023 MRI LUMBAR SPINE WO IVCON 11/19/2023 Peer to Peer Instructions Peer to Peer , options: 1-2 Does Peer to Peer need to be scheduled? Yes Who can complete the Peer to Peer? Dr, PA, FRESH WORK INSPECTOR, LN Additional Peer to Peer Instructions You can call for the peer to peer at the date and time of your convenience Appeal Instructions Appeal Address [address] [address], [facility], [address] Appeal Fax# No fax# available Required Form(s) Yes, Please see attached or can be found at [email or web address] ([employer]). Additional Appeal Instructions Send it attention to: Appeals department. Include: coversheet with patient's and case information, a formal appeal letter and attach any pertinent supporting clinical documentation. Also, insurance requires a formal appeal form filled out if you would like to submit a written appeal. Facility Information Location [facility] [id number] Tax ID# [id number] documented in this encounter [facility] 12-01-2023 Note HNO ID: [id number] Author: DEE GARCIA RN Service: Care Management [...] Indicated Advance Directives Current Advance Directive: None Banking Consultant Attempted to Assist with AD Completion: Yes [...] Prep Current Services/Equipment Discharge Planning Patient Goal(s): [place] [facility] Explained: Are you interested in [...] IV antibx. 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 He uses a nebulizer and inhalers at home. His pcp is Dr Steele and he sees Pulmonary in [place]. He stated he has upcoming appts for spots on lung. His support is his but verbalizes stress with his work and has trouble sleeping at night. He has rx coverage and denies any financial concerns. Discussed scheduling sleep study at [place]. Pt declined- he stated his is scheduling a Home sleep study through [facility]. Will follow SIGNATURE: Dee Garcia RN PATIENT NAME: Elis Bills DATE: December 01, 2023 TIME: 3:37 PM CONTACT #: [phone] [facility] 11-29-2023 Telephone encounter Note Received [...] scheduled for the Lumbar MBB's. Vivian Fried [facility] 11-29-2023 Miscellaneous Notes Received a voicemail [...] MBB's. Vivian Fried documented in this encounter [facility] 11-26-2023 Telephone encounter Note Patient was called and spoke with. Patient is going to have his call later to schedule the appointment since he was placed on a blood thinner and is 100% sure what it is. Toya Tucker [facility] 11-26-2023 Miscellaneous Notes Patient was called and spoke with. Patient is going to have his call later to schedule the appointment since he was placed on a blood thinner and is 100% sure what it is. Toya Tucker documented in this encounter [facility] 11-25-2023 Instructions Bertha Schumacher APRN.CNP - 11/25/2023 2:28 PM EDT Ice and heat as tolerated Activity as tolerated documented in this encounter [facility] 11-25-2023 History of Present illness Narrative Images from the original note were not included. VIRTUAL VISIT PROGRESS NOTE This is a virtual visit using [employer] Video Visit. It required patient-provider interaction for the medical decision making as documented below. I have communicated my name and active licensure. The patient's identity and physical location were verified at the time of this visit. Either the patient or their legal independent sales representative has been informed of the risks and benefits of -- and alternatives to -- treatment through a remote evaluation and consents to proceed with the evaluation remotely. [facility] Today's Date: 11/25/2023 Name: Elis Bills [...] and validated on 11/25/2023 by Bertha Schumacher APRN.CLINICAL ADMINISTRATOR All prescriptions have been APPROPRIATELY filled. No [...] and assume there are 5 lumbar-type vertebrae. Stock Controller: [facility] Transcribe Date/Time: Nov 19 2023 [...] guidance BILATERAL SIDES at L4-5 and L5-S1 Tv Production Assistant Needed: Medial Branch Blocks - YES Anticoagulants: None, Plavix (7 days when hold needed) Relevant Allergies: None Additional Info: None Studies: None Functional Rastafarian: NONE Referrals: No additional considerations at present [...] APRN.CNP Pain Management [facility] documented in this encounter [facility] 11-25-2023 Note HNO ID: [id number] Author: BERTHA SCHUMACHER APRN.CNP Service: ? Author Type: Nurse Practitioner Type: Progress Notes Filed: 11/25/2023 14:35 Note Text: VIRTUAL VISIT PROGRESS NOTE This is a virtual visit using [employer] Video Visit. It required patient-provider interaction for the medical decision making as documented below. I have communicated my name and active licensure. The patient's identity and physical location were verified at the time of this visit. Either the patient or their legal independent sales representative has been informed of the risks and benefits of -- and alternatives to -- treatment through a remote evaluation and consents to proceed with the evaluation remotely. [facility] Today's Date: 11/25/2023 Name: Elis Bills [...] and validated on 11/25/2023 by Bertha Schumacher APRN.CLINICAL ADMINISTRATOR All prescriptions have been APPROPRIATELY filled. No [...] WO IVCON / (more content not included)... [facility] 11-23-2023 Telephone encounter Note Spoke with patient and scheduled virtual visit with Bertha Schumacher on 11/25/2023 to discuss MRI [employer] President to Dr. Everton Decker MD / Bertha Schumacher CNP [facility] [address] [place] [address] Phone. [phone] / Fax. [phone] [facility] 11-23-2023 Miscellaneous Notes Spoke with patient and scheduled virtual visit with Bertha Schumacher on 11/25/2023 to discuss MRI [employer] President to Dr. Everton Decker MD / Bertha Schumacher CNP [facility] [address] [place] [address] Phone. [phone] / Fax. [phone] Hi, can you please call this pt and set up for a virtual visit with me this to discuss his MRI results? Thanks. documented in this encounter [facility] 11-21-2023 Telephone encounter Note Hi, can you please call this pt and set up for a virtual visit with me this to discuss his MRI results? Thanks. [facility] 11-19-2023 History of Present illness Narrative [...] PATIENT PRESENTS WITH AN IMPLANTABLE OR ATTACHED WATER USE INSPECTOR: No RADIOLOGY DEPARTMENT: MR; Exam(s) Completed: Spine: Lumbar spine PERIPHERAL IV DATA: Not applicable SIGNED BY: Malena Yoder A.A.S.,RT (R) (CT)(MR) November 19, 2023 3:40 PM documented in this encounter [facility] 11-11-2023 Instructions Shelton Aguilera MD - [...] the following website: https://[place].quitlogix.org/en-US / OR Call 5-355-TUDY-NOW (421-5547) Use patches and gum both at the [...] Nicotine replacement therapy. documented in this encounter [facility] 11-11-2023 History of Present illness Narrative Images from the original note were not included. [facility] Progress Note Mr. Bills is a 63 year old male who presents to the [facility]. Consultation requested by Dr. 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 Other environmental/occupational [...] DATE OF EXAM: Sep 02 2023 1:21PM [facility] 0541 - CT CHEST WO IVCON / [...] No abnormality in the imaged upper abdomen. Clinical Nurse Reviewer (topogram) images: No additional findings. Impression: IMPRESSION: [...] obtained in 12 months --END OF FINDING-- Stock Controller: YAIR Transcribe Date/Time: Sep 05 2023 11:40A Dictated by : WILLIAM QUINTANA MD This examination was interpreted and the report reviewed and electronically signed by: WILLIAM QUINTANA MD on Sep 05 2023 11:47AM EST No results found. Echo: No results found for this or any previous visit (from the past 15682 hour(s)). Vaccines: Immunization History Administered Date(s) Administered tetanus diphtheria pertussis (Tdap) vaccine, age 7+ yr (ADACEL, BOOSTRIX) 06/14/2023 Assessment: Mr. Bills is a 63 year old male who presents to the [facility] for evaluation of allergic asthma and tobacco [...] trapping, normal TLC. Normal FEV1/FVC but low [id number]. Chest CT with multiple sub<6mm lung nodules. [...] [facility] Pager / phone [phone] November 11, 2023 2661 documented in this encounter [facility] 10-29-2023 Instructions Bertha Schumacher APRN.CNP - 10/29/2023 4:27 PM EDT Ice and heat as tolerated Activity as tolerated documented in this encounter [facility] 10-29-2023 History of Present illness Narrative VIRTUAL VISIT PROGRESS NOTE This is a virtual visit using Audio Only Visit. It required patient-provider interaction for the medical decision making as documented below. I have communicated my name and active licensure. The patient's identity and physical location were verified at the time of this visit. Either the patient or their legal independent sales representative has been informed of the [...] 1. Lumbar spondylosis MRI LUMBAR SPINE WO [facility] Routine As patient did not get relief from the medial branch nerve block we will abort the planned to continue with the series and abort the RFA plan. Patient stated understanding. Patient sent stating that he did have physical therapy at [facility] which is part of [facility] plan. Will get the notes from [facility] and order an MRI of the lumbar [...] Bertha Schumacher APRN.NABOR documented in this encounter [facility] 10-28-2023 History of Present illness Narrative [facility] Date: 10/28/2023 Patient name: Elis Bills [...] or double vision) Respiratory: Negative (No Cough, Ewdmzbonl-vv-edlnrg, Dyspnea on exertion, wheezing) Cardiovascular: Negative (No [...] appropriate Assessment and Plan: As noted above [place] protocol documentation / Pre-Procedure Checklist: Consent: Obtained [...] MD Pain Management [facility] Review of Systems Constitutional: Positive for [...] is not nervous/anxious. documented in this encounter [facility] 10-28-2023 Nurse Note Order has been [...] tablePatient s procedure was performed in an [facility] Procedure room. Pause completed at each [...] allergies Procedure Start: 950 Procedure End: 956 Tv Production Assistant's Name: mehreen Are you on a blood [...] receive one? n documented in this encounter [facility] [facility] 10-28-2023 Instructions Jael Lamas LPN - [...] care and why. documented in this encounter [facility] 10-19-2023 Miscellaneous Notes Rx mail pharmacy [...] two times a day. Patient Phone numbers: [phone] (home) Request is for script(s) to be escript to mail order [facility]. Dalia Segura documented in this encounter [facility] 10-11-2023 Miscellaneous Notes Pharmacy faxed requesting [...] by mouth as needed. Patient Phone numbers: [phone] (home) Request is for script(s) to be escript to mail order [facility]. Edel Cramer documented in this encounter [facility] 09-29-2023 Miscellaneous Notes I will send in a medrol dose lalo to see if this will help. documented in this encounter [facility] 09-23-2023 Miscellaneous Notes Procedure(s) being scheduled: [...] No 9. Does this procedure require a screw driver operator? Yes If yes, has patient been notified that a screw driver operator is needed and must be present at [...] vaccine.) Albertina Martin documented in this encounter [facility] 09-23-2023 Instructions Bertha Schumacher APRN.CNP - 09/23/2023 8:52 AM EST Ice and heat as tolerated Activity as tolerated documented in this encounter [facility] 09-23-2023 History of Present illness Narrative [...] not included. [facility] Today's Date: 09/23/2023 Name: Elis Bills [...] recent physical therapy. 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 No [...] guidance BILATERAL SIDES at L4-5 and L5-S1 Tv Production Assistant Needed: Medial Branch Blocks - YES Anticoagulants: None, Plavix (7 days when hold needed) Relevant Allergies: None Additional Info: None Studies: None Functional Rastafarian: NONE Referrals: No additional considerations at present [...] APRN.[facility] documented in this encounter [facility] 09-02-2023 Miscellaneous Notes Radiology Service Progress [...] PATIENT PRESENTS WITH AN IMPLANTABLE OR ATTACHED WATER USE INSPECTOR: No RADIOLOGY DEPARTMENT: CT; Exam(s) Completed: Chest PERIPHERAL IV DATA: Not applicable SIGNED BY: RT Chyna(R) September 02, 2023 1:16 PM documented in this encounter [facility] 09-02-2023 Procedure note Associated Ord er(s): [...] TIME: 11:54 AM documented in this encounter [facility] 09-02-2023 History of Present illness Narrative PULM FUNCTION SMARTBLOCK: Provider: Shelton Aguilera MD Assisting Tech: Boo Camarillo RRT DLCO: 1 LV - Box: 1 Exhaled Nitric Oxide: 1 documented in this encounter [facility] 08-26-2023 Miscellaneous Notes Images from the [...] Lisa Allison RN documented in this encounter [facility] 08-24-2023 Miscellaneous Notes Images from the original note were not included. Shelton Aguilera MD P [facility] Pul Nurse Pool Please instruct the patient. [...] Lisa Allison RN documented in this encounter [facility] 08-24-2023 Miscellaneous Notes Nebulizer order signed & faxed back to [facility]. Dalia Segura documented in this encounter [facility] 08-20-2023 Miscellaneous Notes Nebulizer order, office note, insurance cards and demo sheet faxed to [facility]. Edel Cramer documented in this encounter [facility] 08-20-2023 History of Present illness Narrative PULM FUNCTION SMARTBLOCK: Provider: Shelton Aguilera MD Spirometry: 1 documented in this encounter [facility] Evaluation note No assessment inform ation available [facility] Work Phone: Evaluation note Diagnosis Dyspnea, unspecified type [facility] Chronic obstructive pulmonary disease, unspecified COPD type (HCC) [facility] Wheezing [facility] Diagnosis Lumbar spondylosis- Primary Lumbosacral spondylosis without myelopathy Chronic bilateral low back pain with sciatica, sciatica laterality unspecified [facility] Diagnosis Chronic obstructive pulmonary disease, unspecified COPD type (HCC)- Primary [facility] Diagnosis Lumbar spondylosis- Primary Lumbosacral spondylosis without myelopathy [facility] Diagnosis Lumbar spondylosis- Primary Lumbosacral spondylosis without myelopathy Chronic bilateral low back pain with sciatica, sciatica laterality unspecified Spinal 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 Spinal stenosis, lumbar region, without neurogenic claudication [facility] Diagnosis Abnormal finding of diagnostic imaging- Primary Other nonspecific (abnormal) findings on radiological and other examinations of body structure [facility] Lung nodules- Primary Other nonspecific abnormal finding of lung field Severe persistent asthma, unspecified whether complicated Tobacco use disorder Morbid obesity (HCC) Morbid obesity [facility] Diagnosis Spinal 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 Spinal stenosis, lumbar region, without neurogenic claudication [facility] Diagnosis Lumbar spondylosis- Primary Lumbosacral spondylosis without myelopathy Spinal 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 Spinal stenosis, lumbar region, without neurogenic claudication [facility] Diagnosis Severe persistent asthma, unspecified whether complicated- Primary [facility] Diagnosis Lumbar spondylosis- Primary Lumbosacral spondylosis without myelopathy [facility] Diagnosis Lumbar spondylosis- Primary Lumbosacral spondylosis without myelopathy [facility] Diagnosis Lung nodules Other nonspecific abnormal finding of lung field [facility] [place] [facility] Diagnosis Lung nodules Other nonspecific abnormal finding of lung field Severe persistent asthma, unspecified whether complicated [facility] [place] [facility] Diagnosis Lumbar spondylosis- Primary Lumbosacral spondylosis without myelopathy Spinal 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 Spinal stenosis, lumbar region, without neurogenic claudication Chronic bilateral low back pain with sciatica, sciatica laterality unspecified [facility] [place] [facility] Diagnosis Lumbar radiculopathy- Primary Thoracic or lumbosacral neuritis or radiculitis, unspecified [facility] [place] [facility] Diagnosis Lumbar spondylosis- Primary Lumbosacral spondylosis without myelopathy Lumbar radiculopathy Thoracic or lumbosacral neuritis or radiculitis, unspecified Spinal stenosis, lumbar region, without neurogenic claudication [facility] [place] [facility]* Diagnosis Low back pain, unspecified back pain laterality, unspecified chronicity, unspecified whether sciatica present- Primary [facility] [place] [facility]* Diagnosis Lumbar spondylosis- Primary Lumbosacral spondylosis without myelopathy [facility] [place] [facility] Diagnosis Lumbar spondylosis- Primary Lumbosacral spondylosis without myelopathy Spinal stenosis, lumbar region, without neurogenic claudication [facility] [place] [facility]* Diagnosis Lumbar spondylosis- Primary Lumbosacral spondylosis without myelopathy [facility] [place] [facility]* Diagnosis APPOINTMENT CANCELLED- Primary [facility] [place] [facility]* Diagnosis Spinal stenosis of lumbar region with neurogenic claudication- Primary Spinal stenosis, lumbar region, with neurogenic claudication [facility] [place] [facility]* Diagnosis Low back pain, unspecified back pain laterality, unspecified chronicity, unspecified whether sciatica present [facility] [place] [facility]* Diagnosis Spinal stenosis of lumbar region with neurogenic claudication- Primary Spinal stenosis, lumbar region, with neurogenic claudication Spinal stenosis of lumbar region with neurogenic claudication Spinal stenosis, lumbar region, with neurogenic claudication [facility] [place] [facility]* Diagnosis Pre-op examination- Primary Preoperative examination, [...] with neurogenic claudication [facility] [place] [facility] Diagnosis Pre-op examination- Primary Preoperative examination, [...] in today's visit. documented in this encounter [facility] note* Diagnosis Pre-op examination- Primary Preoperative examination, [...] with neurogenic claudication documented in this encounter [facility] note* Diagnosis Pre-op examination- Primary Preoperative examination, [...] without neurogenic claudication [facility] Diagnosis Pre-op examination- Primary Preoperative [...] Other postprocedural status [facility] Diagnosis Pre-op examination- Primary Preoperative [...] Other postprocedural status [facility] Diagnosis Pre-op examination- Primary Preoperative [...] Other postprocedural status [facility] [place] [facility]* Diagnosis COPD exacerbation (HCC)- Primary Obstructive [...] [employer] EFF[employer] UNATT Shelton Aguilera MD [address] [place] [address] [place] [address] Referral ID Status Reason Start Date Expiration Date Visits Requested Visits Authorized [id number] Pending Review Auto-Generat ed Referral 11/11/2023 11/10/2024 1 1 * Consult, Test, Treat (Routine) - Authorized Specialty Diagnoses / Procedures Referred By Contac t Referred To Contact Allergy Diagnoses Severe persistent asthma, unspecified whether complicated Procedures CONSULT TO ALLERGY/IMMUNOLOGY OFFICE/OUTPATIENT [facility] 60 MINUTES Shelton Aguilera MD [address] [place] [address] Referral ID Status Reason Start Date Expiration Date Visits Requested Visits Authorized [id number] Authorized PCP Requested Referral 11/11/2023 11/10/2024 1 1 * Outpatient Procedure (Routine) - Authorized Specialty Diagnoses / Procedures [facility] Referred To Contact [facility] Diagnoses Lung nodules Severe persistent asthma, unspecified whether complicated Procedures ECHO ECHO TTHRC R-T 2D W/WOM-MODE COMPL SPEC&COLR D Shelton Aguilera MD [address] [place] [address] [facility] [address] [place] [address] Referral ID Status Reason Start Date Expiration Date Visits Requested Visits Authorized [id number] Authorized Auto-Generat ed Referral 11/11/2023 11/10/2024 1 1 * MRI/CT (Routine) - Authorized Specialty Diagnoses / Procedures [facility] Referred To Contact CT IMAGING Diagnoses Lung nodules Procedures CT CHEST WO IVCON DIAGNOSTIC COMPUTED TOMOGRAPHY THORAX W/O CNTRST Shelton Aguilera MD [address] [place] [address] [place] [address] Referral ID Status Reason Start Date Expiration Date Visits Requested Visits Authorized [id number] Authorized Auto-Generat ed Referral 11/11/2023 12/10/2024 1 1 [facility] for referral (narrative)* Outpatient Procedure (Routine) - Closed Specialty Diagnoses / Procedures [facility] Referred To Contact [facility] Diagnoses Lung nodules Severe persistent asthma, unspecified whether complicated Procedures ECHO ECHO TTHRC R-T 2D W/WOM-MODE COMPL SPEC&COLR D Shelton Aguilera MD [address] [place] [address] [facility] [address] [place] [address] Referral ID Status Reason Start Date Expiration Date V isits Requested Visits Authorized [id number] Closed Auto-Generate d Referral 11/11/2023 11/10/2024 1 1 [facility] for referral (narrative)* Diagnostic Procedure Only (Routine) - Authorized Specialty Diagnoses / Procedures Referred By Contac t Referred To Contact XR IMAGING Diagnoses Low back pain, unspecified back pain laterality, unspecified chronicity, unspecified whether sciatica present Procedures XR LUMBAR MOTION 4V AP/LAT/ FLEX/EXT RADEX SPINE LUMBOSACRAL MINIMUM 4 VIEWS Lois Kee MD [address] [place] [address] [place] [id number] Referral ID Status Reason Start Date Expiration Date Visits Requested Visits Authorized [id number] Authorized Auto-Generat ed Referral 04/06/2024 05/06/2025 1 1 * Diagnostic Procedure Only (Routine) - Authorized Specialty Diagnoses / Procedures Referred By Contac t Referred To Contact XR IMAGING Diagnoses Low back pain, unspecified back pain laterality, unspecified chronicity, unspecified whether sciatica present Procedures XR LUMBAR LIMITED 2V AP/LAT RADEX SPINE LUMBOSACRAL 2/3 VIEWS Lois Kee MD [address] [place] [address] [place] [id number] Referral ID Status Reason Start Date Expiration Date Visits Requested Visits Authorized [id number] Authorized Auto-Generat ed Referral 04/04/2024 05/04/2025 1 1 [facility] for referral (narrative)* Outpatient Procedure (Routine) - New Request Specialty Diagnoses / Procedures Referred By Contac t Referred To Contact [facility] Diagnoses Spinal stenosis of lumbar region with neurogenic claudication Procedures ECG COMPLETE ECG ROUTINE ECG W/LEAST 12 LDS W/I&R Lois Kee MD [address] [place] [address] [address] Referral ID Status Reason Start Date Expiration Date Visits Requested Visits Authorized [id number] New Request Auto-Generat ed Referral 07/14/2025 1 1 [facility] for referral (narrative)* Diagnostic Procedure Only (Routine) - Pending Review Specialty Diagnoses / Procedures Referred By [facility] Referred To Contact XR IMAGING Diagnoses S/P lumbar laminectomy Procedures XR LUMBAR LIMITED 2V FLEX/EXT RADEX SPINE LUMBOSACRAL 2/3 VIEWS Lois Kee MD [address] [place] [address] [place] [id number] Referral ID Status Reason Start Date Expiration Date Visits Requested Visits Authorized [id number] Pending Review Auto-Generat ed Referral 08/10/2024 09/09/2025 1 1 [facility] for visit Narrative* Outpatient Procedure (Routine) - Closed Specialty Diagnoses / Procedures [facility] Referred To Contact [facility] Diagnoses Lung nodules Severe persistent asthma, unspecified whether complicated Procedures ECHO ECHO TTHRC R-T 2D W/WOM-MODE COMPL SPEC&COLR D Shelton Aguilera MD [address] [place] [address] [address] Referral ID Status Reason Start Date Expiration Date V isits Requested Visits Authorized [id number] Closed Auto-Generate d Referral 11/11/2023 11/10/2024 1 1 [facility] for visit Narrative* Diagnostic Procedure Only (Routine) - Closed Specialty Diagnoses / Procedures Referred By Contac t Referred To Contact XR IMAGING Diagnoses Low back pain, unspecified back pain laterality, unspecified chronicity, unspecified whether sciatica present Procedures XR LUMBAR MOTION 4V AP/LAT/ FLEX/EXT RADEX SPINE LUMBOSACRAL MINIMUM 4 VIEWS Lois Kee MD [address] [place] [address] [place] [id number] Referral ID Status Reason Start Date Expiration Date V isits Requested Visits Authorized [id number] Closed Auto-Generate d Referral 04/06/2024 05/06/2025 1 1 [facility] for visit Narrative* Auth/Cert (Routine) Specialty Diagnoses / Procedures Referred By Contac t Referred To Contact Case Management Diagnoses Respiratory distress, hypoxia, pneumonia Procedures n/a Aura Wagner MD [address] [place] [address] Phone: tel: fax: [employer] [address] [place] [address] Phone: tel: Referral ID Status Reason Start Date Expiration Date Visits Re quested Visits Authorized [id number] 3 3 [employer] Summary Purpose Family History No Family History [...] No April 22 9 7:56pm Power of Tool Keeper No April 22 019 7:56pm Advance Directive Response Recorded Date/ Time Living Will No March 22 022 11:25am Power of Tool Keeper No March 22, 2022 11:25am Latest Code [...] No March 22, 022 10:25am Power of Tool Keeper No March 22, 2022 10:25am Date Activated [...] CANAL LUMBAR W/O CONTRAST MATERIAL Bertha Schumacher APRN.CLINICAL ADMINISTRATOR [address] [place] [address] [place] [address] Referral ID Status Reason Start Date Expiration Date Visits Requested Visits Authorized [id number] Pending Review Auto-Generat ed Referral 10/29/2023 11/27/2024 1 1 Referral ID Status Reason Start Date Expiration Date V isits Requested Visits Authorized [id number] Closed Auto-Generate d Referral 10/29/2023 11/27/2024 1 1 Specialty Diagnoses / Procedures Referred By Contac t Referred To Contact Neurosurgery Diagnoses Lumbar spondylosis Spinal stenosis, lumbar region, without neurogenic claudication Procedures CONSULT TO NEUROSURGERY OFFICE/OUTPATIENT [facility] MDM 60 MINUTES Prebish, SEAN Cantu.CLINICAL ADMINISTRATOR [address] [place] [address] Oziel Edwards I, MD [address] [place] [address] Referral ID Status Reason Start Date Expiration Date Visits Requested Visits Authorized [id number] Authorized PCP Requested Referral 03/30/2024 06/28/2024 1 1 Specialty Diagnoses / Procedures Referred By Contac t Referred To Contact [facility] Diagnoses S/P lumbar laminectomy Procedures CONSULT TO PHYSICAL THERAPY PHYSICAL THERAPY EVALUATION HIGH COMPLEX 45 MINS Lois Kee MD [address] [place] [address] [facility] [address] [place] [address] Referral ID Status Reason Start Date Expiration Date Visits Requested Visits Authorized [id number] Pending Review Auto-Generat ed Referral 08/25/2024 08/25/2025 1 1 Additional Source Comments (unrecognized sect ion and content) No Status Records FoundNo Status Records FoundNo Status Records FoundNo Status Records FoundNo Status Records FoundNo Status Records Found INFORMATION SOURCE (unrecogn ized section and content) DATE CREATED AUTHOR 12/30/2019 [facility] ([place]) DATE CREATED AUTHOR AUTHOR'S ORGANIZ ATION 09/06/2023 [facility] DATE CREATED AUTHOR AUTHOR'S ORGANIZ ATION 10/27/[address] [facility] DATE CREATED AUTHOR AUTHOR'S ORGANIZ ATION 10/30/2024 [facility] DATE CREATED AUTHOR AUTHOR'S ORGANIZ ATION 11/21/2024 [facility] DATE CREATED AUTHOR AUTHOR'S ORGANIZ ATION 02/05/2025 [facility] Goals (unrecognized section and content) Goals [...] Juarez Dewitt , DO Attending Provider Active Casino Dealer Relationship Specialty Start Date End Date Pilar Steele DO [address] [place] [address] PCP - General Family Medicine 06/14/23 Casino Dealer Relationship Specialty Start Date End Date Pilar Steele DO [address] [place] [address] PCP - General Family Medicine 06/14/23 Casino Dealer Relationship Specialty Start Date End Date Pilar Steele DO [address] [place] [address] PCP - General Family Medicine 06/14/23 Casino Dealer Relationship Specialty Start Date End Date Pilar Steele DO [address] [place] [address] PCP - General Family Medicine 06/14/23 Casino Dealer Relationship Specialty Start Date End Date Pilar Steele DO [address] [place] [address] PCP - General Family Medicine 06/14/23 Casino Dealer Relationship Specialty Start Date End Date Pilar Steele DO [address] [place] [address] PCP - General Family Medicine 06/14/23 Casino Dealer Relationship Specialty Start Date End Date Pilar Steele DO [address] [place] [address] PCP - General Family Medicine 06/14/23 Casino Dealer Relationship Specialty Start Date End Date Pilar Steele DO [address] [place] [address] PCP - General Family Medicine 06/14/23 Casino Dealer Relationship Specialty Start Date End Date Pilar Steele DO [address] [place] [address] PCP - General Family Medicine 06/14/23 Casino Dealer Relationship Specialty Start Date End Date Pilar Steele DO [address] [place] [address] PCP - General Family Medicine 06/14/23 Casino Dealer Relationship Specialty Start Date End Date Pilar Steele DO [address] [place] [address] PCP - General Family Medicine 06/14/23 Casino Dealer Relationship Specialty Start Date End Date Pilar Steele DO [address] [place] [address] PCP - General Family Medicine 06/14/23 Casino Dealer Relationship Specialty Start Date End Date Pilar Steele DO [address] [place] [address] PCP - General Family Medicine 06/14/23 Casino Dealer Relationship Specialty Start Date End Date Pilar Steele DO [address] [place] [address] PCP - General Family Medicine 06/14/23 Casino Dealer Relationship Specialty Start Date End Date Pilar Steele DO [address] [place] [address] PCP - General Family Medicine 06/14/23 Casino Dealer Relationship Specialty Start Date End Date Pilar Steele DO [address] [place] [address] PCP - General Family Medicine 06/14/23 Casino Dealer Relationship Specialty Start Date End Date Pilar Steele DO [address] [place] [address] PCP - General Family Medicine 06/14/23 Casino Dealer Relationship Specialty Start Date End Date Pilar Steele DO [address] [place] [address] PCP - General Family Medicine 06/14/23 Casino Dealer Relationship Specialty Start Date End Date Pilar Steele DO [address] [place] [address] PCP - General Family Medicine 06/14/23 Casino Dealer Relationship Specialty Start Date End Date Pilar Steele DO [address] [place] [address] PCP - General Family Medicine 06/14/23 Casino Dealer Relationship Specialty Start Date End Date Pilar Steele DO [address] [place] [address] PCP - General Family Medicine 06/14/23 Casino Dealer Relationship Specialty Start Date End Date Pilar Steele DO [address] [place] [address] PCP - General Family Medicine 06/14/23 Casino Dealer Relationship Specialty Start Date End Date Pilar Steele DO [address] [place] [address] PCP - General Family Medicine 06/14/23 Casino Dealer Relationship Specialty Start Date End Date Pilar Steele DO [address] [place] [address] PCP - General Family Medicine 06/14/23 Casino Dealer Relationship Specialty Start Date End Date Pilar Steele DO [address] [place] [address] (Fax) PCP - General Family Medicine 06/14/23 [employer] Relationship Specialty Start Date End Date Pilar Steele DO [address] [place] [address] (Fax) PCP - General Family Medicine 06/14/23 Casino Dealer Relationship Specialty Start Date End Date Pilar Steele DO [address] [place] [address] PCP - General Family Medicine 06/14/23 [employer] Dealer Relationship Specialty Start Date End Date Pilar Steele DO [address] [place] [address] PCP - General Family Medicine 06/14/23 Casino Dealer Relationship Specialty Start Date End Date Pilar Steele DO [address] [place] [id number] PCP - General Family Medicine 06/14/23 Casino Dealer Relationship Specialty Start Date End Date Pilar Steele DO [address] [place] [id number] PCP - General Family Medicine 06/14/23 Casino Dealer Relationship Specialty Start Date End Date Pilar Steele DO [address] [place] [id number] PCP - General Family Medicine 06/14/23 Casino Dealer Relationship Specialty Start Date End Date Pilar Steele DO [address] [place] [id number] PCP - General Family Medicine 06/14/23 Casino Dealer Relationship Specialty Start Date End Date Pilar Steele DO [address] [place] [address] PCP - General Family Medicine 06/14/23 Casino Dealer Relationship Specialty Start Date End Date Pilar Steele DO [address] [place] [address] PCP - General Family Medicine 06/14/23 Casino Dealer Relationship Specialty Start Date End Date Pilar Steele DO [address] [place] [address] PCP - General Family Medicine 06/14/23 Casino Dealer Relationship Specialty Start Date End Date MylaPilar ferrisDO [address] [place] [address] PCP - General Family Medicine 06/14/23 Casino Dealer Relationship Specialty Start Date End Date MylaPilar ferrisDO [address] [place] [address] PCP - General Family Medicine 06/14/23 Casino Dealer Relationship Specialty Start Date End Date Brooke Wu RN [address] [place] [address] [place] [address] Clinical Research Spec 10/27/24 Casino Dealer Relationship Specialty Start Date End Date Brooke Wu RN [address] [place] [address] [place] [address] Clinical Research Spec 10/27/24 Casino Dealer Relationship Specialty Start Date End Date Brooke Wu RN [address] [facility] [place] [address] Clinical Research Spec 10/27/24 Casino Dealer Relationship Specialty Start Date End Date Brooke Wu RN [address] [place] [address] [place] [address] Clinical Research Spec 10/27/24 Casino Dealer Relationship Specialty Start Date End Date Myla Pilar BerriosDO [address] [place] [address] PCP - General Family Medicine 06/14/23 Casino Dealer Relationship Specialty Start Date End Date Veronica Butt APRN-[facility] [address] [place] [address] [employer] Pulmonary Medicine 01/20/25 Source Comments (unrecognize d section and content) In the event this informatio n is protected by the Federal Confidentiality of Alcohol and Drug Abuse Patient Records regulations: The Federal rules restrict any use of the information to criminally investigate or prosecute any alcohol or drug abuse patient.[facility] the event this information is protected by the Federal Confidentiality of Alcohol and Drug Abuse Patient Records regulations: The Federal rules restrict any use of the information to criminally investigate or prosecute any alcohol or drug abuse patient.[facility]In the event this information is protected by the Federal Confidentiality of Alcohol and Drug Abuse Patient Records regulations: The Federal rules restrict any use of the information to criminally investigate or prosecute any alcohol or drug abuse patient.[facility]In the event this information is protected by the Federal Confidentiality of Alcohol and Drug Abuse Patient Records regulations: The Federal rules restrict any use of the information to criminally investigate or prosecute any alcohol or drug abuse patient.[facility] HospitalIn the event this information is protected by the Federal Confidentiality of Alcohol and Drug Abuse Patient Records regulations: The Federal rules restrict any use of the information to criminally investigate or prosecute any alcohol or drug abuse patient.[facility] HospitalIn the event this information is protected by the Federal Confidentiality of Alcohol and Drug Abuse Patient Records regulations: The Federal rules restrict any use of the information to criminally investigate or prosecute any alcohol or drug abuse patient.[facility] HospitalIn the event this information is protected by the Federal Confidentiality of Alcohol and Drug Abuse Patient Records regulations: The Federal rules restrict any use of the information to criminally investigate or prosecute any alcohol or drug abuse patient.[facility] HospitalIn the event this information is protected by the Federal Confidentiality of Alcohol and Drug Abuse Patient Records regulations: The Federal rules restrict any use of the information to criminally investigate or prosecute any alcohol or drug abuse patient.[facility] HospitalIn the event this information is protected by the Federal Confidentiality of Alcohol and Drug Abuse Patient Records regulations: The Federal rules restrict any use of the information to criminally investigate or prosecute any alcohol or drug abuse patient.[facility] HospitalIn the event this information is protected by the Federal Confidentiality of Alcohol and Drug Abuse Patient Records regulations: The Federal rules restrict any use of the information to criminally investigate or prosecute any alcohol or drug abuse patient.[facility] HospitalIn the event this information is protected by the Federal Confidentiality of Alcohol and Drug Abuse Patient Records regulations: The Federal rules restrict any use of the information to criminally investigate or prosecute any alcohol or drug abuse patient.[facility] HospitalIn the event this information is protected by the Federal Confidentiality of Alcohol and Drug Abuse Patient Records regulations: The Federal rules restrict any use of the information to criminally investigate or prosecute any alcohol or drug abuse patient.[facility] HospitalIn the event this information is protected by the Federal Confidentiality of Alcohol and Drug Abuse Patient Records regulations: The Federal rules restrict any use of the information to criminally investigate or prosecute any alcohol or drug abuse patient.[facility] HospitalIn the event this information is protected by the Federal Confidentiality of Alcohol and Drug Abuse Patient Records regulations: The Federal rules restrict any use of the information to criminally investigate or prosecute any alcohol or drug abuse patient.[facility] HospitalIn the event this information is protected by the Federal Confidentiality of Alcohol and Drug Abuse Patient Records regulations: The Federal rules restrict any use of the information to criminally investigate or prosecute any alcohol or drug abuse patient.[facility] HospitalIn the event this information is protected by the Federal Confidentiality of Alcohol and Drug Abuse Patient Records regulations: The Federal rules restrict any use of the information to criminally investigate or prosecute any alcohol or drug abuse patient.[facility] HospitalIn the event this information is protected by the Federal Confidentiality of Alcohol and Drug Abuse Patient Records regulations: The Federal rules restrict any use of the information to criminally investigate or prosecute any alcohol or drug abuse patient.[facility] HospitalIn the event this information is protected by the Federal Confidentiality of Alcohol and Drug Abuse Patient Records regulations: The Federal rules restrict any use of the information to criminally investigate or prosecute any alcohol or drug abuse patient.[facility] HospitalIn the event this information is protected by the Federal Confidentiality of Alcohol and Drug Abuse Patient Records regulations: The Federal rules restrict any use of the information to criminally investigate or prosecute any alcohol or drug abuse patient.[facility] HospitalIn the event this information is protected by the Federal Confidentiality of Alcohol and Drug Abuse Patient Records regulations: The Federal rules restrict any use of the information to criminally investigate or prosecute any alcohol or drug abuse patient.[facility] HospitalIn the event this information is protected by the Federal Confidentiality of Alcohol and Drug Abuse Patient Records regulations: The Federal rules restrict any use of the information to criminally investigate or prosecute any alcohol or drug abuse patient.[facility] HospitalIn the event this information is protected by the Federal Confidentiality of Alcohol and Drug Abuse Patient Records regulations: The Federal rules restrict any use of the information to criminally investigate or prosecute any alcohol or drug abuse patient.[facility] HospitalIn the event this information is protected by the Federal Confidentiality of Alcohol and Drug Abuse Patient Records regulations: The Federal rules restrict any use of the information to criminally investigate or prosecute any alcohol or drug abuse patient.[facility] HospitalIn the event this information is protected by the Federal Confidentiality of Alcohol and Drug Abuse Patient Records regulations: The Federal rules restrict any use of the information to criminally investigate or prosecute any alcohol or drug abuse patient.[facility] HospitalIn the event this information is protected by the Federal Confidentiality of Alcohol and Drug Abuse Patient Records regulations: The Federal rules restrict any use of the information to criminally investigate or prosecute any alcohol or drug abuse patient.[facility] HospitalIn the event this information is protected by the Federal Confidentiality of Alcohol and Drug Abuse Patient Records regulations: The Federal rules restrict any use of the information to criminally investigate or prosecute any alcohol or drug abuse patient.[facility] HospitalIn the event this information is protected by the Federal Confidentiality of Alcohol and Drug Abuse Patient Records regulations: The Federal rules restrict any use of the information to criminally investigate or prosecute any alcohol or drug abuse patient.[facility] HospitalIn the event this information is protected by the Federal Confidentiality of Alcohol and Drug Abuse Patient Records regulations: The Federal rules restrict any use of the information to criminally investigate or prosecute any alcohol or drug abuse patient.[facility] HospitalIn the event this information is protected by the Federal Confidentiality of Alcohol and Drug Abuse Patient Records regulations: The Federal rules restrict any use of the information to criminally investigate or prosecute any alcohol or drug abuse patient.[facility] HospitalIn the event this information is protected by the Federal Confidentiality of Alcohol and Drug Abuse Patient Records regulations: The Federal rules restrict any use of the information to criminally investigate or prosecute any alcohol or drug abuse patient.[facility] HospitalIn the event this information is protected by the Federal Confidentiality of Alcohol and Drug Abuse Patient Records regulations: The Federal rules restrict any use of the information to criminally investigate or prosecute any alcohol or drug abuse patient.[facility] HospitalIn the event this information is protected by the Federal Confidentiality of Alcohol and Drug Abuse Patient Records regulations: The Federal rules restrict any use of the information to criminally investigate or prosecute any alcohol or drug abuse patient.[facility] HospitalIn the event this information is protected by the Federal Confidentiality of Alcohol and Drug Abuse Patient Records regulations: The Federal rules restrict any use of the information to criminally investigate or prosecute any alcohol or drug abuse patient.[facility] HospitalIn the event this information is protected by the Federal Confidentiality of Alcohol and Drug Abuse Patient Records regulations: The Federal rules restrict any use of the information to criminally investigate or prosecute any alcohol or drug abuse patient.[facility] HospitalIn the event this information is protected by the Federal Confidentiality of Alcohol and Drug Abuse Patient Records regulations: The Federal rules restrict any use of the information to criminally investigate or prosecute any alcohol or drug abuse patient.[facility] HospitalIn the event this information is protected by the Federal Confidentiality of Alcohol and Drug Abuse Patient Records regulations: The Federal rules restrict any use of the information to criminally investigate or prosecute any alcohol or drug abuse patient.[facility] HospitalIn the event this information is protected by the Federal Confidentiality of Alcohol and Drug Abuse Patient Records regulations: The Federal rules restrict any use of the information to criminally investigate or prosecute any alcohol or drug abuse patient.[facility] HospitalIn the event this information is protected by the Federal Confidentiality of Alcohol and Drug Abuse Patient Records regulations: The Federal rules restrict any use of the information to criminally investigate or prosecute any alcohol or drug abuse patient.[facility] HospitalIn the event this information is protected by the Federal Confidentiality of Alcohol and Drug Abuse Patient Records regulations: The Federal rules restrict any use of the information to criminally investigate or prosecute any alcohol or drug abuse patient.[facility] HospitalIn the event this information is protected by the Federal Confidentiality of Alcohol and Drug Abuse Patient Records regulations: The Federal rules restrict any use of the information to criminally investigate or prosecute any alcohol or drug abuse patient.[facility] HospitalIn the event this information is protected by the Federal Confidentiality of Alcohol and Drug Abuse Patient Records regulations: The Federal rules restrict any use of the information to criminally investigate or prosecute any alcohol or drug abuse patient.[facility] HospitalIn the event this information is protected by the Federal Confidentiality of Alcohol and Drug Abuse Patient Records regulations: The Federal rules restrict any use of the information to criminally investigate or prosecute any alcohol or drug abuse patient.[facility] HospitalIn the event this information is protected by the Federal Confidentiality of Alcohol and Drug Abuse Patient Records regulations: The Federal rules restrict any use of the information to criminally investigate or prosecute any alcohol or drug abuse patient.[facility] HospitalIn the event this information is protected by the Federal Confidentiality of Alcohol and Drug Abuse Patient Records regulations: The Federal rules restrict any use of the information to criminally investigate or prosecute any alcohol or drug abuse patient.[facility] HospitalIn the event this information is protected by the Federal Confidentiality of Alcohol and Drug Abuse Patient Records regulations: The Federal rules restrict any use of the information to criminally investigate or prosecute any alcohol or drug abuse patient.[facility] HospitalIn the event this information is protected by the Federal Confidentiality of Alcohol and Drug Abuse Patient Records regulations: The Federal rules restrict any use of the information to criminally investigate or prosecute any alcohol or drug abuse patient.[facility] HospitalIn the event this information is protected by the Federal Confidentiality of Alcohol and Drug Abuse Patient Records regulations: The Federal rules restrict any use of the information to criminally investigate or prosecute any alcohol or drug abuse patient.[facility] HospitalIn the event this information is protected by the Federal Confidentiality of Alcohol and Drug Abuse Patient Records regulations: The Federal rules restrict any use of the information to criminally investigate or prosecute any alcohol or drug abuse patient.[facility] HospitalIn the event this information is protected by the Federal Confidentiality of Alcohol and Drug Abuse Patient Records regulations: The Federal rules restrict any use of the information to criminally investigate or prosecute any alcohol or drug abuse patient.[facility] HospitalIn the event this information is protected by the Federal Confidentiality of Alcohol and Drug Abuse Patient Records regulations: The Federal rules restrict any use of the information to criminally investigate or prosecute any alcohol or drug abuse patient.[facility] HospitalIn the event this information is protected by the Federal Confidentiality of Alcohol and Drug Abuse Patient Records regulations: The Federal rules restrict any use of the information to criminally investigate or prosecute any alcohol or drug abuse patient.[facility] HospitalIn the event this information is protected by the Federal Confidentiality of Alcohol and Drug Abuse Patient Records regulations: The Federal rules restrict any use of the information to criminally investigate or prosecute any alcohol or drug abuse patient.[facility] HospitalIn the event this information is protected by the Federal Confidentiality of Alcohol and Drug Abuse Patient Records regulations: The Federal rules restrict any use of the information to criminally investigate or prosecute any alcohol or drug abuse patient.[facility] HospitalIn the event this information is protected by the Federal Confidentiality of Alcohol and Drug Abuse Patient Records regulations: The Federal rules restrict any use of the information to criminally investigate or prosecute any alcohol or drug abuse patient.[facility] HospitalIn the event this information is protected by the Federal Confidentiality of Alcohol and Drug Abuse Patient Records regulations: The Federal rules restrict any use of the information to criminally investigate or prosecute any alcohol or drug abuse patient.[facility] HospitalIn the event this information is protected by the Federal Confidentiality of Alcohol and Drug Abuse Patient Records regulations: The Federal rules restrict any use of the information to criminally investigate or prosecute any alcohol or drug abuse patient.[facility] HospitalIn the event this information is protected by the Federal Confidentiality of Alcohol and Drug Abuse Patient Records regulations: The Federal rules restrict any use of the information to criminally investigate or prosecute any alcohol or drug abuse patient.[facility] HospitalIn the event this information is protected by the Federal Confidentiality of Alcohol and Drug Abuse Patient Records regulations: The Federal rules restrict any use of the information to criminally investigate or prosecute any alcohol or drug abuse patient.[facility] HospitalIn the event this information is protected by the Federal Confidentiality of Alcohol and Drug Abuse Patient Records regulations: The Federal rules restrict any use of the information to criminally investigate or prosecute any alcohol or drug abuse patient.[facility] HospitalIn the event this information is protected by the Federal Confidentiality of Alcohol and Drug Abuse Patient Records regulations: The Federal rules restrict any use of the information to criminally investigate or prosecute any alcohol or drug abuse patient.[facility] HospitalIn the event this information is protected by the Federal Confidentiality of Alcohol and Drug Abuse Patient Records regulations: The Federal rules restrict any use of the information to criminally investigate or prosecute any alcohol or drug abuse patient.[facility] HospitalIn the event this information is protected by the Federal Confidentiality of Alcohol and Drug Abuse Patient Records regulations: The Federal rules restrict any use of the information to criminally investigate or prosecute any alcohol or drug abuse patient.[facility] HospitalIn the event this information is protected by the Federal Confidentiality of Alcohol and Drug Abuse Patient Records regulations: The Federal rules restrict any use of the information to criminally investigate or prosecute any alcohol or drug abuse patient.[facility] HospitalIn the event this information is protected by the Federal Confidentiality of Alcohol and Drug Abuse Patient Records regulations: The Federal rules restrict any use of the information to criminally investigate or prosecute any alcohol or drug abuse patient.[facility] HospitalIn the event this information is protected by the Federal Confidentiality of Alcohol and Drug Abuse Patient Records regulations: The Federal rules restrict any use of the information to criminally investigate or prosecute any alcohol or drug abuse patient.[facility] HospitalIn the event this information is protected by the Federal Confidentiality of Alcohol and Drug Abuse Patient Records regulations: The Federal rules restrict any use of the information to criminally investigate or prosecute any alcohol or drug abuse patient.[facility] HospitalIn the event this information is protected by the Federal Confidentiality of Alcohol and Drug Abuse Patient Records regulations: The Federal rules restrict any use of the information to criminally investigate or prosecute any alcohol or drug abuse patient.[facility] HospitalIn the event this information is protected by the Federal Confidentiality of Alcohol and Drug Abuse Patient Records regulations: The Federal rules restrict any use of the information to criminally investigate or prosecute any alcohol or drug abuse patient.[facility] HospitalIn the event this information is protected by the Federal Confidentiality of Alcohol and Drug Abuse Patient Records regulations: The Federal rules restrict any use of the information to criminally investigate or prosecute any alcohol or drug abuse patient.[facility] HospitalIn the event this information is protected by the Federal Confidentiality of Alcohol and Drug Abuse Patient Records regulations: The Federal rules restrict any use of the information to criminally investigate or prosecute any alcohol or drug abuse patient.[facility] HospitalIn the event this information is protected by the Federal Confidentiality of Alcohol and Drug Abuse Patient Records regulations: The Federal rules restrict any use of the information to criminally investigate or prosecute any alcohol or drug abuse patient.[facility] HospitalIn the event this information is protected by the Federal Confidentiality of Alcohol and Drug Abuse Patient Records regulations: The Federal rules restrict any use of the information to criminally investigate or prosecute any alcohol or drug abuse patient.[facility] the event this information is protected by the Federal Confidentiality of Alcohol and Drug Abuse Patient Records regulations: The Federal rules restrict any use of the information to criminally investigate or prosecute any alcohol or drug abuse patient.[facility] Hospital[facility] the event this information is protected by the Federal Confidentiality of Alcohol and Drug Abuse Patient Records regulations: The Federal rules restrict any use of the information to criminally investigate or prosecute any alcohol or drug abuse patient.[facility] Hospital[facility] the event this information is protected by the Federal Confidentiality of Alcohol and Drug Abuse Patient Records regulations: The Federal rules restrict any use of the information to criminally investigate or prosecute any alcohol or drug abuse patient.[facility] Reason for Visit (unrecogniz ed section and content) Reason Comments Spirometry Specialty Diagnoses / Procedures Referred By Contac t Referred To Contact [facility] Diagnoses Dyspnea, unspecified type Procedures SPIROMETRY WITH DILATOR IF OBSTRUCTED BRNCDILAT RSPSE SPMTRY PRE&POST-BRNCDILAT ADMN Shelton Aguilera MD [address] [place] [address] [facility] [place] [address] [place] [address] Referral ID Status Reason Start Date Expiration Date V isits Requested Visits Authorized [id number] Closed Auto-Generate d Referral 08/13/2023 09/11/2024 1 1 Reason Comments FYI-No Action Needed Reason Comments Results Specialty Diagnoses / Procedures Referred By Contac t Referred To Contact [facility] Diagnoses Chronic obstructive pulmonary disease, unspecified COPD type (HCC) Procedures LUNG DIFFUSION CAPACITY (DLCO) DIFFUSING CAPACITY Shelton Aguilera MD [address] [place] [address] [facility] [place] [address] [place] [address] Referral ID Status Reason Start Date Expiration Date V isits Requested Visits Authorized [id number] Closed Auto-Generate d Referral 08/20/2023 09/18/2024 1 1 Specialty Diagnoses / Procedures Referred By Contac t Referred To Contact [facility] Diagnoses Chronic obstructive pulmonary disease, unspecified COPD type (HCC) Procedures LUNG VOLUMES Shelton Aguilera MD [address] [place] [address] [facility] [place] [id number] Referral ID Status Reason Start Date Expiration Date V isits Requested Visits Authorized [id number] Closed Auto-Generate d Referral 08/20/2023 07/18/2024 1 1 Specialty Diagnoses / Procedures Referred By Contac t Referred To Contact [facility] Diagnoses Chronic obstructive pulmonary disease, unspecified COPD type (HCC) Procedures NITRIC OXIDE, EXHALED NITRIC OXIDE GAS DETERMINATION Shelton Aguilera MD [address] [place] [address] [facility] [place] [address] [place], [place] [id number] Referral ID Status Reason Start Date Expiration Date V isits Requested Visits Authorized [id number] Closed Auto-Generate d Referral 08/20/2023 09/18/2024 1 1 Specialty Diagnoses / Procedures Referred By Contac t Referred To Contact CT IMAGING Diagnoses Wheezing Procedures CT CHEST WO IVCON DIAGNOSTIC COMPUTED TOMOGRAPHY THORAX W/O CNTRST Shelton Aguilera MD [address] [place] [address] Ct Imaging [facility] Referral ID Status Reason Start Date Expiration Date V isits Requested Visits Authorized [id number] Closed Auto-Generate d Referral 08/20/2023 10/03/2023 1 [...] LMBR/SAC 2ND LEVEL PROCEDURE 20 , Bertha, PHYSICIAN OPHTHALMOLOGIST.CLINICAL ADMINISTRATOR [address] [place] [address] Dhiraj Herr MD [address] [address] Referral ID Status Reason Start Date Expiration Date Visits Re quested Visits Authorized [id number] Closed 07/19/2023 07/18/2024 1 1 Reason Comments Follow Up Reason Comments Wheezing Reason Comments Radiology MRI Specialty Diagnoses / Procedures Referred By Contac t Referred To Contact MR IMAGING Diagnoses Spinal 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 Procedures MRI LUMBAR SPINE WO IVCON MRI SPINAL CANAL LUMBAR W/O CONTRAST MATERIAL kirstinSteffaniea, PHYSICIAN OPHTHALMOLOGIST.CLINICAL ADMINISTRATOR [address] [place] [address] [place] [address] Referral ID Status Reason Start Date Expiration Date V isits Requested Visits Authorized [id number] Closed Auto-Generate d Referral 10/29/2023 11/27/2024 1 [...] LMBR/SAC 2ND LEVEL PROCEDURE 20 , Bertha, PHYSICIAN OPHTHALMOLOGIST.CLINICAL ADMINISTRATOR [address] [place] [address] Dhiraj Herr MD [address] [facility] [address] [place] [address] Referral ID Status Reason Start Date Expiration Date Visits Re quested Visits Authorized [id number] Closed 12/16/2023 07/18/2024 1 1 Reason Comments Procedure Follow Up MBB Reason Comments Follow Up MBB Specialty Diagnoses / Procedures Referred By Contac t Referred To Contact CT IMAGING Diagnoses Lung nodules Procedures CT CHEST WO IVCON DIAGNOSTIC COMPUTED TOMOGRAPHY THORAX W/O CNTRST Shelton Aguilera MD [address] [place] [address] [place] [address] Referral ID Status Reason Start Date Expiration Date V isits Requested Visits Authorized [id number] Closed Auto-Generate d Referral 11/11/2023 12/10/2024 1 1 Reason Onset Date Comments Refill Request 01/06/2024 Reason Onset Date Comments Refill Request 01/11/2024 Reason Comments Illness [place] R N covering urgent pulm sypmtom calls [...] GDN PROCEDURE Everton Decker MD [address] [place] [address] Everton Decker MD [address] [place] [address] Referral ID Status Reason Start Date Expiration Date Visits Requested Visits Authorized [id number] Appeal Pending Clearance Not Met - Admin/Chair [...] LMBR/SAC 2ND LEVEL PROCEDURE 20 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, Bertha, PHYSICIAN OPHTHALMOLOGIST.CLINICAL ADMINISTRATOR [address] [place] [address] Everton Decker MD [address] [facility] [address] [facility] [address] [place] [address] Referral ID Status Reason Start Date Expiration Date Visits Re quested Visits Authorized [id number] Closed 04/26/2024 10/23/2024 1 1 Reason Comments Follow Up post procedure Reason Comments Erroneous encounter-disregard Reason Comments Injections MBB Back Pain LOWER BILATERAL Specialty Diagnoses / Procedures Referred By Christinaac t Referred To Contact PAIN MANAGEMENT Diagnoses Spondylosis without myelopathy or radiculopathy, lumbar region Procedures DSTR NROLYTC AGNT PARVERTEB FCT SNGL LMBR/SACRAL DSTR NROLYTC AGNT PARVERTEB FCT ADDL LMBR/SACRAL PreBertha phan, PHYSICIAN OPHTHALMOLOGIST.CLINICAL ADMINISTRATOR [address] [facility] [address] [facility] [address] [place] [address] [facility] [place] [address] [facility] [address] [facility] [address] [place] [address] Referral ID Status Reason Start Date Expiration Date Visits Re quested Visits Authorized [id number] Closed 05/08/2024 11/04/2024 1 1 Reason Comments Appointment Cancelled Reason Comments Established Patient Reason Comments Radiology CT Specialty Diagnoses / Procedures Referred By Contac t Referred To Contact Radiology / RADIO CT SCAN [facility] WS Diagnoses Other nonspecific abnormal finding of lung field CT chest w/o in scanned docs Procedures DIAGNOSTIC COMPUTED TOMOGRAPHY THORAX W/O CNTRST CT WO 400 Pilar Steele DO [address] [place] [address] Scan [facility] [address] [place] [address] Referral ID Status Reason Start Date Expiration Date Visits Re quested Visits Authorized [id number] Closed 07/19/2023 07/18/2024 1 1 Reason Comments [...] COMPLEX 45 MINS Lois Kee MD [address] [facility] [place] [address] Phone: tel: fax: [facility] [address] [place] [address] Referral ID Status Reason Start Date Expiration Date V isits Requested Visits Authorized [id number] Closed Auto-Generate d Referral 07/19/2024 07/18/2025 1 [...] Diagnoses Unspecified visual disturbance Procedures NA [facility] [employer] [address] [place] [phone] Phone: tel: [facility] [employer] [address] [place] [phone] Phone: tel: Referral ID Status Reason Start Date Expiration Date Visits Re quested Visits Authorized [id number] 3 3 Reason Onset Date Comments APPOINTMENT SCHEDULING 12/25/2024 Reason Comments New patient, to establish relationship Specialty Diagnoses / Procedures Referred By Contac t Referred To Contact Pulmonary Medicine Diagnoses COPD exacerbation (HCC) Aura Wagner MD [address] [place] [address] Phone: tel: fax: [facility] [address] [place] [address] Phone: tel: Referral ID Status Reason Start Date Expiration Date V isits Requested Visits Authorized [id number] Pending Review 10/26/2024 10/26/2025 3 3 Reason [...] Provider: Bertram Patel RT - Reason: RT [place] protocol) 0000 (Automatically Held - Provider: Bertram [...] Kesha Solis RT)0402 (Given - Provider: Christen lAlen RT)0912 (Given - Provider: Misha Grullon RT)1208 [...] - Comment: Pt had one placed at [facility]) 0915 (Patch Applied - Provider: Juan A Olsen RN) 0834 (Patch Removal - Provider: Stephie Phillips, NEENA)0836 (Patch Applied - Provider: Stephie Phillips RN) pantoprazole (PROTONIX) tablet 20 mg, Oral, DAILY 30 MIN BEFORE BREAKFAST, First dose on Wed10/25/24 at 0830, Until Discontinued 916 (Given - Provider: Juan A Olesn RN) 0835 (Given - Provider: Stephie Phillips [...] BE BASED ON THE PRIMARY CLINICAL RECORDS. [facility]. provides no warranty or guarantee of the accuracy or completeness of information in this document.
--- NOTE | 2025-02-27 01:35 | CT_ITS ---
PROCEDURE: ABDOMEN/PELVIS W IV CONT ONLY 02/27/2025 REASON FOR EXAM: FEVER TECHNIQUE: ABDOMEN/PELVIS W IV CONT ONLY Coronal and Sagittal reconstruction series were provided. CONTRAST: Isovue 370 VOLUME: 96 mL One or more dose reduction techniques were used (e.g., Automated exposure control, adjustment of the mA and/or kV according to patient size, use of iterative reconstruction technique. RADIATION DOSE SUMMARY: CTDlvol: 54 mGy DLP: 2188 mGycm COMPARISON: No FINDINGS: Unremarkable liver, gallbladder, pancreas, spleen, adrenal glands, kidneys. No hydronephrosis. Normal bladder. Normal-sized prostate. No retroperitoneal or pelvic adenopathy. No free air. Nonobstructed bowel. There are 4 small lipomas, within the duodenal lumen, measuring up to approximately 2 cm. Normal appendix. No acute large bowel findings. Status post bilateral THR. Lumbar spine scoliosis and degeneration. Prior lumbar spine surgery. Old L1 compression deformity. CT/Abdomen/Pelvis W IV Cont ONLY IMPRESSION: No acute abdominopelvic findings. Refer to chest CT report for additional detail. Reading Location: [place] [address]
--- NOTE | 2025-02-27 01:35 | CT_ITS ---
PROCEDURE: CHEST WITHOUT CONTRAST 02/27/2025 REASON FOR EXAM: FEVER TECHNIQUE: Chest CT without contrast. Coronal and Sagittal reconstruction series were provided. One or more dose reduction techniques were used (e.g., Automated exposure control, adjustment of the mA and/or kV according to patient size, use of iterative reconstruction technique RADIATION DOSE SUMMARY: CTDlvol: 20 mGy DLP: 721 mGycm COMPARISON: Chest x-ray 02/26/2025 FINDINGS: Unremarkable base of neck and axilla. Normal esophagus. Upper limits of normal heart size. No acute vascular pathology on noncontrast scanning. Mediastinal and right hilar adenopathy, likely reactive. Thoracic spine degeneration. Mild scoliosis. No acute chest wall findings. No acute upper abdominal findings. Central airways are patent. There is right lower lobe consolidative airspace disease. There is under aeration at the left base. CT/Chest without Contrast IMPRESSION: Right lower lobe pneumonia. Reading Location: [place] [address]
[2025-02-27 01:57] LABS: Troponin T High Sens 4 HR 45 ng/L (<=22)
[2025-02-27 03:07] LABS: Osmolality, Urine 628 mOsm/KG
[2025-02-27 03:32] LABS: Osmolality, Serum 288 mOsm/KG (280-301)
--- NOTE | 2025-02-27 03:35 | PCM.RX.CS ---
Consult Antibiotic Management Pharmacy has been consulted to manage selected antibiotic: Vancomycin Type of Intervention Type of Consult: New start Labs Labs: Sodium 126 mmol/L (133-145) L 02/26/25 20:55 Potassium 4.0 mmol/L (3.3-5.1) 02/26/25 20:55 Chloride 90 mmol/L (98-108) L 02/26/25 20:55 Carbon Dioxide 18.9 mmol/L (21.0-32.0) L 02/26/25 20:55 Anion Gap 18 (5-15) H 02/26/25 20:55 BUN 16 mg/dL (4-19) 02/26/25 20:55 Creatinine 1.19 mg/dL (0.70-1.20) 02/26/25 20:55 Est GFR (MDRD) Non-Af 68 (>60) 02/26/25 20:55 BUN/Creatinine Ratio 13.5 RATIO (10-20) 02/26/25 20:55 Glucose 111 mg/dL (70-99) H 02/26/25 20:55 Dosing Weight Weight used for dosin.6 kg Estimated Creatinine Clearance Estimated Creatinine Clearance: 78.8 Goal Trough Goal Trough: 15-20 mcg/mL Pharmacy Plan for Drug Dosing Pharmacy Plan for Drug Dosing: Pharmacy Service will continue to monitor and adjust dosing as required. LOADING DOSE 1750MG. START 1750MG Q12H AND DRAW TROUGH PRIOR TO 4TH DOSE Follow-Up Labs Follow-Up Labs: Trough: Vancomycin Date/Time Labs Ordered Labs to be done on [date and time ordered]: 02/28 @ 1200
[2025-02-27 04:07] LABS: Vitamin B12 229 pg/mL (180-914)
[2025-02-27 05:16] LABS: Cholesterol 88 mg/dL (<=200); Triglycerides 59 mg/dL; Very Low Density Lipoprotein 12 mg/dL (5-40); cholesterol:hdl ratio screen 1.95
[2025-02-27 05:17] LABS: Low Density Lipoprotein Calc. 32 mg/dL
[2025-02-27 07:41] LABS: FOLATES,SERUM (FOLIC ACID) 30.40 ng/mL (4.60-34.80)
[2025-02-27] MEDS: Lactobacillis Acidophilus 1 CAP PO ×4 (09:25→21:53)
[2025-02-27] MEDS: 0.9% Saline Lock 10 ML Syringe IV ×3 (09:26→21:51)
[2025-02-27] MEDS: Cefepime HCl 2 GM in 0.9% Normal Saline (100mL MB+) 100 ML IV ×2 (09:26→21:51)
[2025-02-27] MEDS: Thiamine Hydrochloride 100 MG Tablet PO (09:26)
--- NOTE | 2025-02-27 12:35 | CASEMGMT ---
RN SOPHIA Assessment Face to Face with patient for initial transition planning/care coordination assessment. RN SOPHIA introduced self and role at [facility], pt voices understanding. Pt is A&Ox4 and is resting comfortably in the chair and is calm. Care providers, pharmacy, and demographics verified. Admitting dx: Fever, Leukocytosis, AMS, EtOH abuse and recent fall LACE Strata: 1 PCP: Fidencio Sanders Specialists: Pulmonary through [place]. Pt reports that he has a follow up appt scheduled in May. Preferred Pharmacy: [facility] Insurance: [facility] A/B only Prescription Benefit: Pt states that he has rx benefits but is unsure who what it is through LNOK: Shantelle (W) Living Arrangements: Pt lives with his in a 2 story home with 2 steps to enter ADLs/IADLs: Indep. 6-Click score is 20. Per ICU rounds, PT isn't warranted Transportation: Self, DME: [employer]. Pulse ox. Inquired if the pt has a medical alert system. Pt declines and denies resources offered. Pt reports that he has home oxygen that his bought online. Pt states that he is unsure who who it is through. TC to the pt's who states that she bought the pt a personal oxygen concentrator for at night but does not know the company it is through. reports that the pt wears 3L HS via [place] only. states that the pt's PCP and delivery rn are aware of this. Encouraged the the pt and to get a sleep study completed to see if this is needed. Pt states that the pt had a sleep study done last year and that everything came back fine but when his lungs get bad he wears the oxygen at night. Pt is currently 98% on RA. EtOH/ Tob/ Illicit Drug use: Pt states that he drinks 8-9 beers/day, smokes 10 cigarettes/ day, and denies illicit drug use. Pt denies wanting any SW follow up regarding cessation resources. HHC/SNF: denies hx or needs Pt?s goal: Home Plan: Anticipate return home with pt's once medically ready. Pt states that he feels safe returning home with his at the time of DC and denies the need for HH, OP Tx, or SNF. Pt denies the need for any additional resources or therapy. Pt denies further questions or concerns at this time. CM to follow. Ruben Avendano RN CM
--- NOTE | 2025-02-27 16:02 | PCM.PROGNOTE ---
Subjective Subjective Patient seen and examined. He was admitted with a complaint of altered mental status as well as fever and cough. Chest CT done on admission showed right lower lobe pneumonia and labs also showed hyponatremia. He has no active complaints. He denied any fever, chills, cough, chest pain, palpitations, dizziness, nausea, vomiting or any other symptoms. Review of systems is otherwise negative. Objective Data Objective Data Vital Signs: Vital Signs Temp Pulse Resp BP Pulse Ox O2 Del Method O2 Flow Rate 100.6 F H 89 24 H 140/62 H 98 Room Air 2 02/27/25 14:00 02/27/25 14:00 02/27/25 14:00 02/27/25 14:00 02/27/25 14:00 02/27/25 14:42 02/27/25 07:00 Oxygen Flow Rate (L/min) 2 Oxygen Delivery Method Room Air Weight: 263 lb 10.766 oz Body Mass Index (BMI) 39.0 Intake & Output: Intake and Output for Last 24 Hours 02/25/25 02/26/25 02/27/25 23:59 23:59 23:59 Intake Total 1000 / 1000 3270 / 3270 Output Total 3 / 3 Balance 1000 / 1000 3267 / 3267 Lab / Micro Data 02/26/25 20:55 02/26/25 20:55 Labs: Laboratory Results - last 24 hr 02/26/25 20:20: Urine Color Yellow, Urine Clarity Clear, Urine pH 6.0, Ur Specific [place] 1.020, Urine Protein 100 H, Urine Glucose (UA) Normal, Urine Ketones 5 H, Urine Occult Blood 150 H, Urine Nitrite Negative, Urine Bilirubin Negative, Urine Urobilinogen Normal, Ur Leukocyte Esterase Negative, Urine RBC 0-5 SEEN, Urine WBC 0-5 SEEN, Ur Squamous Epith Cells 0-5 SEEN, Ur Renal Epithelial Cell 0-5 SEEN, Urine Bacteria 3+, Hyaline Casts 5-10 SEEN, Fine Granular Casts 10-25 SEEN, Urine Mucus 0 SEEN 02/26/25 20:55: WBC 17.4 H, RBC 4.39 L, Hgb 13.1, Hct 37.2 L, MCV 84.7, MCH 29.8, MCHC 35.2, RDW Std Deviation 42.0, RDW Coeff of Carlos 13.4, Plt Count 315, MPV 9.5, Immature Gran % (Auto) 0.700, Neut % (Auto) 87.3 H, Lymph % (Auto) 3.9 L, [place] % (Auto) 7.3, Eos % (Auto) 0.3, Baso % (Auto) 0.5, Absolute Neuts (auto) 15.2 H, Absolute Lymphs (auto) 0.68 L, Nucleated RBC % 0, PT 15.3 H, INR 1.2, APTT 34.5, Sodium 126 L, Potassium 4.0, Chloride 90 L, Carbon Dioxide 18.9 L, Anion Gap 18 H, BUN 16, Creatinine 1.19, Estim Creat Clear Calc 78.80, Est GFR (MDRD) Non-Af 68, BUN/Creatinine Ratio 13.5, Glucose 111 H, Lactic Acid < 1.0, Calcium 9.3, Total Bilirubin 0.88, AST 42 H, ALT 18, Alkaline Phosphatase 110, Troponin T High Sens 53 H, Total Protein 7.9, Albumin 4.1, Globulin 3.8, Albumin/Globulin Ratio 1.1 02/26/25 23:12: Troponin T Hi Sens 2 Hr 49 H 02/27/25 00:39: Serum Folate 30.40, Urine Osmolality 628, Urine Opiates Screen NEGATIVE, U Buprenorphine Qual NEGATIVE, Ur Oxycodone Screen NEGATIVE, Urine Methadone Screen NEGATIVE, Urine Fentanyl Screen NEGATIVE, Ur Barbiturates Screen NEGATIVE, Ur Phencyclidine Scrn NEGATIVE, Ur Amphetamines Screen NEGATIVE, U Benzodiazepines Scrn NEGATIVE, Urine Cocaine Screen NEGATIVE, U Cannabinoids Screen NEGATIVE, Ethyl Alcohol < 10.1 02/27/25 01:10: Troponin T Hi Sens 4Hr 45 H 02/27/25 03:15: Hemoglobin A1c 5.5, Serum Osmolality 288, Triglycerides 59 02/27/25 03:15: Triglycerides Cancelled, Cholesterol 88 02/27/25 03:15: Cholesterol Cancelled, LDL Cholesterol, Calc 32 02/27/25 03:15: LDL Cholesterol, Calc Cancelled, VLDL Cholesterol 12 02/27/25 03:15: VLDL Cholesterol Cancelled, HDL Cholesterol 45 02/27/25 03:15: HDL Cholesterol Cancelled, Cholesterol/HDL Ratio 1.95 02/27/25 03:15: Cholesterol/HDL Ratio Cancelled, Vitamin B12 229, TSH 1.110 Micro: Microbiology 02/27/25 03:45 Mucosa - Nasopharyngeal Respiratory Panel (PCR) - Final ABG Data ABG results: ABG 02/26/25 22:22 Specimen Type SERGIO Sample Site Not entered O2 % 4.0 VBG pH 7.47 H VBG pO2 68 H VBG HCO3 24 VBG Total CO2 25 VBG O2 Sat (Calc) 95 H VBG Base Excess 0 POC Mix VBG pCO2 Pt Tmp 32.9 L O2 Delivery Device Not entered Radiography Diagnostic Testing: Radiology Impression Brain CT 02/26/25 21:30 IMPRESSION: 1. Small vessel ischemic/degenerative changes. 2. No acute intracranial hemorrhage, midline shift or mass effect. If symptoms persist, further evaluation with MRI is recommended. Reading Location: [facility] Cervical Spine CT 02/26/25 21:30 IMPRESSION: No acute fracture. Reading Location: [facility] Knee X-Ray 02/26/25 21:45 IMPRESSION: Degenerative changes as above. Reading Location: [facility] Chest X-Ray 02/26/25 21:47 IMPRESSION: Cardiomegaly with mild congestion. Reading Location: [facility] Abdomen/Pelvis CT 02/27/25 01:35 IMPRESSION: No acute abdominopelvic findings. Refer to chest CT report for additional detail. Reading [facility] 02/27/25 01:35 IMPRESSION: Right lower lobe pneumonia. Reading Location: [facility] Physical Exam Const alert and oriented x3 Constitutional Narrative: flat affect HEENT normocephalic, head/scalp atraumatic and moist oral mucous membranes Eyes EOMs intact bilaterally Neck supple and no JVD Lymph Lymphatic: no lymphedema noted Resp Resp Narrative: moderately diminished breath sounds bibasally, no wheezes or crackles. On room air. Cardio regular rate, regular rhythm, S1 normal heart sound, S2 normal heart sound and no murmurs GI normal to inspection, nondistended, normoactive bowel sounds, soft to palpation and non-tender Extremity normal capillary refill, no clubbing, cyanosis or edema and no calf tenderness General Extremity: no tenderness to palpation of joints or extremities Skin General Skin Exam: no breakdown Neuro no focal motor deficits Motor Exam: general weakness Psych cooperative and affect normal Mood & Affect: flat affect Assessment & Plan Assessment/Plan (1) Aspiration pneumonia: QUALIFIERS: Aspiration pneumonia type: unspecified Laterality: right Lung location: lower lobe of lung Qualified Code(s): J69.0 - Pneumonitis due to inhalation of food and vomit (2) Acute metabolic encephalopathy: PLAN: Plan #Right lower lobe pneumonia, concerning for aspiration leucocytosis is resolving. on IV vancomycin and cefepime sputum cultures and blood cultures pending. breathing treatment with bronchodilators. Titrate oxyten to maintain sats >90% Hyponatremia: Sodium was 126 on admission. Concern is to be 8 to 10 minutes likely compounding this also. Diuresing with IV fluids #History of alcohol use disorder No clear evidence of withdrawal. However patient started on phenobarbital withdrawal taper on admission. Adjunctive meds for symptomatic relief. #Nicotine dependence: Counseled to quit. Nicotine patch as needed #Benign essential hypertension: On lisinopril. IV hydralazine as needed #Hyperlipidemia: On statin #GERD: PPI #osteoarthritis: tylenol prn. DVT prophylaxis: lovenox\ Disposition: Transfer out of ICU to PCU. Charges/Coding Visit Charges Inpatient E&M: 77877 Subs Hosp L2
[2025-02-27 18:02] LABS: Hematocrit 36.0 % (40-54); Hemoglobin 11.8 g/dL (13.0-16.5); Immature Granulocytes Count 0.190 X10^3/uL (0.0-0.0); Mean Corp Hgb Conc 32.8 g/dL (32-36); Mean Corpuscular Volume 89.3 fL (80-94); Mean Platelet Vol. 9.3 fl (6.2-12.0); NRBC Flagged by Analyzer 0 % (0-5); POSITIVE DIFFERENTIAL YES; Platelet Count 290 K/mm3 (150-450); RBC Distribution Width CV 14.1 % (11.6-14.6); RBC Distribution Width SD 46.2 fl (35.1-43.9); Red Blood Count 4.03 M/mm3 (4.6-6.2); White Blood Count 16.8 K/mm3 (4.4-11.0)
--- NOTE | 2025-02-27 18:02 | MRI_ITS ---
PROCEDURE: MR BRAIN W/WO CONTRAST 02/27/2025 REASON FOR EXAM: Acute encephalopathy; confusion, unsteady gait, fall TECHNIQUE: MRI BRAIN W/WO CONTRAST. Multiplanar and multisequence images were obtained. CONTRAST: Clariscan VOLUME: 23 mL COMPARISON: CT head 02/26/2025. FINDINGS: No regions of abnormal restricted diffusion to indicate recent infarct. No intracranial hemorrhage, extra-axial collection, mass effect, or hydrocephalus. No intracranial mass lesion, or pathologic enhancement. Mild generalized brain parenchymal volume loss. Mild-moderate chronic small- vessel ischemic-gliotic changes in the supratentorial white matter, with few scattered small foci of chronic lacunar infarct in the bilateral oconnell radiata white matter. There is abnormal confluence T2 FLAIR hyperintensity within the michael with sparing of the periphery, which may reflect prominent chronic gliosis, but can be seen with pontine myelinolysis/demyelination. Grossly unremarkable orbits. Preserved major intracranial vascular flow voids. Mild mucosal thickening in the floor of left maxillary sinus. No mastoid effusions. MRI/Brain W/WO Contrast IMPRESSION: 1. No acute infarct. No mass lesion or pathologic enhancement. 2. Mild-moderate chronic small-vessel ischemic changes with scattered small foc i of old lacunar infarcts in the bilateral oconnell radiata white matter. 3. Confluent T2 hyperintensity within the central michael may reflect prominent ch ronic gliotic change, but can be seen with pontine myelinolysis/demyelination in the appropriate clinical setting. Reading Location: [id number]
[2025-02-27 18:48] LABS: Anion Gap 13 (5-15); BUN 20 mg/dL (4-19); BUN/Creat Ratio 16.7 RATIO (10-20); Calcium,Total 8.5 mg/dL (7.6-11.0); Carbon Dioxide 19.8 mmol/L (21.0-32.0); Chloride 98 mmol/L (98-108); Estimated Creatinine Clearance 80.36 ml/min (50-250); Glucose 123 mg/dL (70-99); Potassium 4.1 mmol/L (3.3-5.1)
[2025-02-27 20:26] LABS: Differential Indicated SCAN CRITERIA MET
[2025-02-27 21:34] LABS: Differential Comment SCANNED
[2025-02-28] VITALS (38 sets, daily range): BP systolic 104–178; BP diastolic 57–121; PULSE 70–114; RESP 21–39; TEMP 37.7–40.4; O2SAT 86–100; BMI 40.3
[2025-02-28] MEDS: Vancomycin HCl 1,750 MG in 0.9% Normal Saline (500mL Bag) 500 ML 250 MG IV (00:02)
[2025-02-28] MEDS: 0.9% Saline Lock 10 ML Syringe IV ×4 (02:35→21:13)
--- NOTE | 2025-02-28 03:00 | RAD_ITS ---
PROCEDURE: CHEST 1 VIEW (PORTABLE) 02/28/2025 REASON FOR EXAM: TACHYPNEA TECHNIQUE: Frontal view of the chest. COMPARISON: 02/26/2025 FINDINGS: Lordotic position. Normal heart size. Prominent left-sided fat pad. Persistent right medial basilar opacity possible consolidation. No effusion or pneumothorax. RAD/Chest 1 View (Portable) IMPRESSION: Persistent right medial basal airspace disease, possible pneumonia. Reading Location: [facility]
[2025-02-28 03:14] LABS: Hematocrit 34.5 % (40-54); Hemoglobin 11.7 g/dL (13.0-16.5); Immature Granulocytes Count 0.120 X10^3/uL (0.0-0.0); Mean Corp Hgb Conc 33.9 g/dL (32-36); Mean Corpuscular Volume 86.9 fL (80-94); Mean Platelet Vol. 9.1 fl (6.2-12.0); NRBC Flagged by Analyzer 0 % (0-5); Platelet Count 249 K/mm3 (150-450); RBC Distribution Width CV 14.0 % (11.6-14.6); RBC Distribution Width SD 44.6 fl (35.1-43.9); Red Blood Count 3.97 M/mm3 (4.6-6.2); White Blood Count 13.3 K/mm3 (4.4-11.0)
--- NOTE | 2025-02-28 03:17 | PCM.HOSP.N ---
Hospitalist Note I was contacted by [employer] LEADER ~2:30 AM and informed the patient spiked a temperature up to 104.2 degrees Fahrenheit with patient hyperventilating in the ~35 breaths/min range with patient increased to 5L NC after he ate watermelon and apparently aspirated. He was started on IV metronidazole to cover anaerobes while being continued on IV vancomycin and IV cefepime. He was then moved back to ICU as he is currently requiring more care than the PCU can typically provide. He underwent ABG that revealed pH 7.43/ PCO2 36 mmHg/ PO2 67.5 mmHg/ HCO3 23.6 mmol/L @ 92% on 5L NC. His repeat CXR revealed ongoing Right medial/basilar infiltrate. He has been made strict NPO with formal Speech Therapy evaluation ordered for the AM with help appreciated in advance. [facility] Imaging Services [address] [place] [address] Chest 1 View (Portable) MR#: [id number] Acct: [id number] Name: ELIS BILLS Rep #: [id number] : 1960 M 64 From: Willy Arellano MD PCP: Fidencio Sanders PA-C Status: ADM IN Study: Chest 1 View (Portable) Date of Exam: 02/28/25 Exam# [id number] Ordering Dr: Gorge Maya DO PROCEDURE: CHEST 1 VIEW (PORTABLE) 02/28/2025 REASON FOR EXAM: TACHYPNEA TECHNIQUE: Frontal view of the chest. COMPARISON: 02/26/2025 FINDINGS: Lordotic position. Normal heart size. Prominent left-sided fat pad. Persistent right medial basilar opacity possible consolidation. No effusion or pneumothorax. RAD/Chest 1 View (Portable) IMPRESSION: Persistent right medial basal airspace disease, possible pneumonia. Reading Location: [facility] CC: STEVE Sanders; Dr. Gorge Maya DO ~ Washing Tub Operator: Signed
[2025-02-28 03:34] LABS: Anion Gap 12 (5-15); BUN 18 mg/dL (4-19); BUN/Creat Ratio 18.1 RATIO (10-20); Calcium,Total 8.1 mg/dL (7.6-11.0); Carbon Dioxide 20.0 mmol/L (21.0-32.0); Chloride 96 mmol/L (98-108); Estimated Creatinine Clearance 94.97 ml/min (50-250); Glucose 115 mg/dL (70-99); Potassium 4.0 mmol/L (3.3-5.1)
--- NOTE | 2025-02-28 03:54 | NURSING ---
0330- report called to SANITATION MANAGERNEENA Rodriguez by this RN
[2025-02-28 04:05] LABS: Troponin T High Sensitivity 48 ng/L (<=22)
[2025-02-28] MEDS: metroNIDAZOLE 500 MG/100 ML BAG 100 MG IV ×3 (04:16→21:49)
[2025-02-28 06:16] LABS: Troponin T High Sens 2 HR 52 ng/L (<=22)
[2025-02-28 07:01] LABS: LPM 5.0; SITE R BRACHIAL
[2025-02-28 07:03] LABS: VBG BASE EXCESS 2 mmol/L (-1.0-3.5); VBG PH PT TEMP 7.37 (7.32-7.42); VBG PO2 25 mmHg (25-40); VBG PO2 PT TEMP 30.4 (25-40); VBG SO2 45 % (50-70); VBG TCO2 27 mmol/L (23-33); VBG pCO2 - PT TEMP 46.2 mmHg (41-51)
[2025-02-28 07:04] LABS: Comment PT TEMP 40 DEGREES C
[2025-02-28 07:10] LABS: Allen Test NEG; SITE R RADIAL
[2025-02-28 07:11] LABS: Base Excess 0 mmol/L (-2 to +2); LPM 5.0; PO2 84 mmHG (75-100); SO2 95 % (95-99)
[2025-02-28 07:15] LABS: Comment Temp correct 40.2C
--- NOTE | 2025-02-28 07:21 | NURSING ---
0721- this RN called patient's to give updated regarding ICU tx, no VM set up at this time
[2025-02-28 08:01] LABS: Troponin T High Sens 4 HR 41 ng/L (<=22)
[2025-02-28 08:04] LABS: Magnesium 2.2 mg/dL (1.5-2.2); Pro- Brain NATRIURETIC PEPTIDE 1621 pg/mL (<=900)
[2025-02-28] MEDS: Pantoprazole Sodium 40 MG in 0.9% Normal Saline (100mL MB+) 100 ML 300 MG IV (09:55)
[2025-02-28 10:35] LABS: Allen Test Negative; Base Excess 2 mmol/L (-2 to +2); FI02 3.0; PO2 85 mmHG (75-100); SITE L Radial; SO2 97 % (95-99)
[2025-02-28] MEDS: dexMEDEtomidine 400 MCG in 0.9% Normal Saline (100mL Bag) 96 ML 15.4 MCG CONT INF ×2 (10:54→23:33)
[2025-02-28] MEDS: CHLORHEXIDINE GLUC 2% CLOTH 1 EACH TOWELETTE TOPICAL (10:59)
[2025-02-28] MEDS: Vancomycin Trough/Random Due 1 LAB MC (11:39)
[2025-02-28] MEDS: Cefepime HCl 2 GM in 0.9% Normal Saline (100mL MB+) 100 ML IV ×2 (11:52→21:13)
[2025-02-28 12:58] LABS: Vancomycin, Trough Level 14.7 ug/mL (5.0-15.0)
--- NOTE | 2025-02-28 13:16 | PCM.RX.CS ---
Consult Antibiotic Management Pharmacy has been consulted to manage selected antibiotic: Vancomycin Type of Intervention Type of Consult: Follow-up Labs Labs: Sodium 129 mmol/L (133-145) L 02/28/25 03:02 Potassium 4.0 mmol/L (3.3-5.1) 02/28/25 03:02 Chloride 96 mmol/L (98-108) L 02/28/25 03:02 Carbon Dioxide 20.0 mmol/L (21.0-32.0) L 02/28/25 03:02 Anion Gap 12 (5-15) 02/28/25 03:02 BUN 18 mg/dL (4-19) 02/28/25 03:02 Creatinine 0.99 mg/dL (0.70-1.20) 02/28/25 03:02 Est GFR (MDRD) Non-Af 85 (>60) 02/28/25 03:02 BUN/Creatinine Ratio 18.1 RATIO (10-20) 02/28/25 03:02 Glucose 115 mg/dL (70-99) H 02/28/25 03:02 Vancomycin Trough 14.7 ug/mL (5.0-15.0) 02/28/25 11:15 Microbiology Microbiology: Microbiology 02/26/25 20:20 Urine, Clean Catch Urine Culture - Preliminary Culture exhibits no growth. 02/27/25 03:45 Mucosa - Nasopharyngeal Respiratory Panel (PCR) - Final Pharmacy Plan for Drug Dosing Pharmacy Plan for Drug Dosing: VANCOMYCIN LEVEL RECEIVED Current Vancomycin Dose: 1750MG Q12 Number of Doses Received: 3 Vancomycin Level: 14.7 mg/dL Hours Since Last Dose: 11 Renal Function: SCr 0.99mg/dL, CrCl 94 mL/min Renal Function Trend: improved Lab/Micro: cultures pending Vancomycin Plan/Comments: 11 hour trough is slightly subtherapeutic at 14.7mg/dL (goal 15-20). Will increase dose to 2000mg Q12 and get a trough prior to 4th dose of new regimen. Pending Level: 03/02/25 @ 0130 Pharmacy Service will continue to monitor and adjust dosing as required.
--- NOTE | 2025-02-28 14:15 | PCMCONS.TICU ---
HPI Consult Data Date of Consult: 02/28/25 HPI Narrative HPI Narrative: ELIS BILLS, is a 64 M w/ asthma/COPD, EtOH abuse, HTN, morbid obesity, HLD, h/o tobacco abuse, GERD who was admitted for AMS. He apparently fell at home the day before admit and was lethargic. He had also been having some cough at home. On arrival here he was noted to have high fever >102F and with CXR concerning for PNA. He was initially admitted to floor, however overnight he had worsening agitation, tachypnea, increased O2 requirement up to 5L NC. This occurred also after he had choking on some watermelon last night. Concern for EtOH withdrawal given last drink reportedly 3-4 days ago, along with aspiration. He was started on IV phenobarbital taper along with precedex gtt and transferred to ICU. He continues to have high fever here, lethargic. Per no recent sick contacts. He drinks ~8-9 beers daily. No prior hospitalizations for EtOH withdrawal. ROS: Unable to obtain d/t [facility] Medical History Hyperlipemia Hypertension GERD (gastroesophageal reflux disease) Home Medications ?Medication ?Instructions ?Recorded ?Last Taken ?Type atorvastatin 80 mg tablet 80 mg PO DAILY 03/22/22 03/22/22 History clopidogrel 75 mg tablet 75 mg PO DAILY 03/22/22 03/22/22 History lisinopril 2.5 mg tablet 2.5 mg PO DAILY 03/22/22 03/22/22 History esomeprazole magnesium 40 mg 40 mg PO DAILY 02/26/25 Unknown History capsule,delayed release folic acid 1 mg tablet 1 mg PO DAILY 02/26/25 Unknown History ipratropium 0.5 mg-albuterol 3 mg 3 ml continuous nebulization Q4H 02/26/25 Unknown History (2.5 mg base)/3 mL nebulization PRN PRN wheezing soln montelukast 10 mg tablet 10 mg PO DAILY 02/26/25 Unknown History thiamine HCl (vitamin B1) 100 mg 100 mg PO DAILY 02/26/25 Unknown History tablet umeclidinium 62.5 mcg-vilanterol 1 ea inhalation DAILY 02/26/25 Unknown History 25 mcg/actuation powdr for inhalation (Anoro Ellipta) Allergy/AdvReac Type Severity Reaction Status Date / Time Penicillins (PCN) Allergy Unknown - Verified 02/28/25 10:02 WAS A BABY Social History Smoking Status: Current every day smoker tobacco type: cigarettes Objective Data Objective Data Vital Signs: Vital Signs Last response Temperature 39.7 C H 02/28/25 13:00 Temperature Source Core 02/28/25 13:00 Pulse Rate 73 02/28/25 13:00 Pulse Strength Normal (2+) 02/28/25 10:00 Respiratory Rate 30 H 02/28/25 13:00 Respiratory Effort Short of Breath, Labored 02/28/25 12:00 Respiratory Depth Shallow 02/28/25 12:00 Respiratory Pattern Hyperpnea 02/28/25 12:33 Blood Pressure 109/57 L 02/28/25 13:00 Blood Pressure Mean 74 02/28/25 13:00 Blood Pressure Source Monitor 02/28/25 13:00 Blood Pressure Position Semi-Fowlers 02/28/25 13:00 Blood Pressure Location Right Arm 02/28/25 13:00 Pulse Ox 99 02/28/25 13:00 Oxygen Delivery Method Nasal Cannula 02/28/25 13:00 Oxygen Flow Rate (L/min) 3 02/28/25 13:00 I&O: I&O Last 24 Hours 02/27/25 02/28/25 02/28/25 23:59 11:59 23:59 Intake Total 1115 / 3850 748.87 / 881.27 132.4 / 881.27 Output Total 250 / 500 250 / 500 Balance 1115 / 3847 498.87 / 381.27 -117.6 / 381.27 I&O: Total Stay 02/26/25 20:48 thru 02/28/25 13:15 Intake Total 5731.27 Output Total 503 Balance 5228.27 Current Meds Ordered / Administered: Current meds ordered / Administered Generic Name Dose Route Start Last Admin Trade Name Freq PRN Reason Stop Dose Admin Acetaminophen 650 mg 02/27/25 02:02 02/27/25 20:15 Acetaminophen 325 Mg Tablet PO 650 mg Q6H PRN PRN Administration Pain 1-10 or Fever Acetaminophen 650 mg 02/28/25 11:30 02/28/25 11:39 Acetaminophen 650 Mg Suppository RC 650 mg Q4H PRN PRN Administration FEVER Albuterol/Ipratropium 3 ml 02/27/25 02:02 02/28/25 03:08 Ipratropium/Albuterol Sulfate 3 Ml Ampul.Neb INHALATION 3 ml Q4H PRN PRN Administration wheezing Albuterol/Ipratropium 3 ml 02/27/25 02:30 02/28/25 12:00 Ipratropium/Albuterol Sulfate 3 Ml Ampul.Neb INHALATION 3 ml Q6HWA.RT GABBY Administration Atorvastatin Calcium 80 mg 02/27/25 22:00 02/27/25 21:51 Atorvastatin Calcium 80 Mg Tablet PO 80 mg QHS GABBY Administration Chlorhexidine Gluconate 1 each 02/28/25 10:00 02/28/25 10:59 Chlorhexidine Gluc 2% Cloth 1 Each Towelette TOPICAL 1 each DAILY GABBY Administration Clopidogrel Bisulfate 75 mg 02/27/25 10:00 02/28/25 11:53 Clopidogrel Bisulfate 75 Mg Tablet PO Not Given DAILY GABBY Dicyclomine HCl 20 mg 02/27/25 02:02 Dicyclomine 10 Mg Capsule PO Q6H PRN PRN abdominal discomfort Enoxaparin Sodium 40 mg 02/27/25 10:00 02/28/25 08:04 Enoxaparin 40 Mg/0.4 Ml Syringe SC 40 mg DAILY GABBY Administration Folic Acid 1 mg 02/27/25 08:00 02/28/25 07:50 Folic Acid 1 Mg Tablet PO Not Given BREAKFAST GABBY Gabapentin 300 mg 02/27/25 02:02 02/27/25 12:15 Gabapentin 300 Mg Capsule PO 300 mg Q8H PRN PRN Administration moderate to severe anxiety Hydroxyzine Pamoate 50 mg 02/27/25 02:02 Hydroxyzine Jodee 25 Mg Capsule PO Q4H PRN PRN mild anxiety Vancomycin IV-PHARMACY TO DOSE 500 mls @ 250 mls/hr 02/27/25 02:02 1 each/ Sodium Chloride IV X1 PRN Rx to Dose Protocol Cefepime HCl 2 gm/ Sodium 100 mls @ 200 mls/hr 02/27/25 10:00 02/28/25 13:07 Chloride IV Infused Q12 GABBY Infusion Sodium Chloride 250 mls @ 15 mls/hr 02/27/25 02:04 IV .[id number] PRN Saline Flush Sodium Chloride 250 mls @ 15 mls/hr 02/27/25 02:04 IV .[id number] PRN Additional IVPB Infusion Metronidazole 500 mg in 100 mls @ 100 mls/hr 02/28/25 02:45 02/28/25 13:42 Flagyl IV 100 mls/hr Q8 GABBY Administration Pantoprazole Sodium 40 mg/ 100 mls @ 300 mls/hr 02/28/25 10:00 02/28/25 10:17 Sodium Chloride IV Infused Q24 GABBY Infusion Dexmedetomidine HCl 400 mcg/ 100 mls @ 15.425 mls/hr 02/28/25 10:30 02/28/25 13:15 Sodium Chloride CONT INF 0.7 mcg/kg/hr .Q6H29M GABBY 21.6 mls/hr Titration Protocol 0.5 MCG/KG/HR Vancomycin HCl 2,000 mg/ 540 mls @ 250 mls/hr 02/28/25 14:00 Sodium Chloride IV Q12H GABBY Loperamide HCl 2 mg 02/27/25 02:02 Loperamide 2 Mg Capsule PO Q4H PRN PRN DIARRHEA/LOOSE STOOLS Montelukast Sodium 10 mg 02/27/25 10:00 02/28/25 07:51 Montelukast 10 Mg Tablet PO Not Given DAILY GABBY Nicotine 14 mg 02/27/25 02:02 02/28/25 08:03 Nicotine 14 Mg Patch TD 14 mg DAILY GABBY Administration Ondansetron HCl 8 mg 02/27/25 02:02 Ondansetron 8 Mg Tablet PO Q8H PRN PRN NAUSEA Phenobarbital 90 mg 02/28/25 04:00 02/28/25 11:57 Phenobarbital Sodium 130 Mg/Ml Vial IV 03/03/25 15:59 90 mg Q4H GABBY Administration Taper Sodium Chloride 10 - 40 ml 02/27/25 02:04 02/28/25 04:19 0.9% Saline Lock 10 Ml Syringe IV 10 ml UD PRN Administration SALINE FLUSH Thiamine HCl 100 mg 02/27/25 10:00 02/28/25 07:51 Thiamine Hydrochloride 100 Mg Tablet PO Not Given DAILY GABBY Trazodone HCl 100 mg 02/27/25 02:02 Trazodone 100 Mg Tablet PO QHS PRN PRN INSOMNIA Vancomycin Protocol 1 lab 03/02/25 00:30 Vancomycin Trough/Random Due 03/02/25 02:30 DAILY [facility] Lab / Micro Data 02/28/25 03:02 02/28/25 03:02 Labs: Laboratory Results - last 24 hr 02/27/25 17:50: WBC 16.8 H, RBC 4.03 L, Hgb 11.8 L, Hct 36.0 L, MCV 89.3 D, MCH 29.3, MCHC 32.8 D, RDW Std Deviation 46.2 H, RDW Coeff of Carlos 14.1, Plt Count 290, MPV 9.3, Immature Gran % (Auto) 1.100 H, Neut % (Auto) 84.3 H, Lymph % (Auto) 5.2 L, [place] % (Auto) 9.2, Eos % (Auto) 0.0, Baso % (Auto) 0.2, Absolute Neuts (auto) 14.2 H, Absolute Lymphs (auto) 0.88, Nucleated RBC % 0, Differential Comment SCANNED, Platelet Estimate ADEQUATE, Sodium 131 L, Potassium 4.1, Chloride 98, Carbon Dioxide 19.8 L, Anion Gap 13, BUN 20 H, Creatinine 1.17, Estim Creat Clear Calc 80.36, Est GFR (MDRD) Non-Af 69, BUN/Creatinine Ratio 16.7, Glucose 123 H, Calcium 8.5 02/28/25 03:02: WBC 13.3 H, RBC 3.97 L, Hgb 11.7 L, Hct 34.5 L, MCV 86.9, MCH 29.5, MCHC 33.9, RDW Std Deviation 44.6 H, RDW Coeff of Carlos 14.0, Plt Count 249, MPV 9.1, Immature Gran % (Auto) 0.900, Neut % (Auto) 81.8 H, Lymph % (Auto) 7.6 L, [place] % (Auto) 8.8, Eos % (Auto) 0.5, Baso % (Auto) 0.4, Absolute Neuts (auto) 10.9 H, Absolute Lymphs (auto) 1.01, Nucleated RBC % 0, Sodium 129 L, Potassium 4.0, Chloride 96 L, Carbon Dioxide 20.0 L, Anion Gap 12, BUN 18, Creatinine 0.99, Estim Creat Clear Calc 94.97, Est GFR (MDRD) Non-Af 85, BUN/Creatinine Ratio 18.1, Glucose 115 H, Lactic Acid 1.1, Calcium 8.1, Troponin T High Sens 48 H D 02/28/25 05:04: Troponin T Hi Sens 2 Hr 52 H 02/28/25 07:13: Phosphorus 3.3, Magnesium 2.2, Troponin T Hi Sens 4Hr 41 H, NT pro BNP II 1621 H 02/28/25 11:15: Vancomycin Trough 14.7 Micro: Microbiology 02/26/25 20:20 Urine, Clean Catch Urine Culture - Preliminary Culture exhibits no growth. ABG Data ABG results: ABG 02/28/25 02/28/25 02/28/25 02:54 03:00 10:31 Specimen Type SERGIO ART ART Sample Site R BRACHIAL R RADIAL L Radial pH 7.44 7.48 H Bicarbonate Actual 23.6 25.5 Total CO2 25 27 Base Excess 0 2 O2 Saturation 95 97 O2 % 3.0 ABG pCO2 36.2 34.3 L ABG pO2 84 85 Pardeep Test NEG Negative VBG pH 7.42 VBG pH (Temp Correct) 7.37 VBG pCO2 (Temp Corrct 30.4 VBG pO2 25 VBG HCO3 26 VBG Total CO2 27 VBG O2 Sat (Calc) 45 L VBG Base Excess 2 POC Mix VBG pCO2 Pt Tmp 40.5 L O2 Delivery Device Nasal Can Nasal Can Not entered Liter Flow 5.0 5.0 Vent Mode Not entered Clinical Comments PT TEMP 40 DEGREES C Temp correct 40.2C Imaging Radiology Impression Brain MRI 02/27/25 18:02 IMPRESSION: 1. No acute infarct. No mass lesion or pathologic enhancement. 2. Mild-moderate chronic small-vessel ischemic changes with scattered small foci of old lacunar infarcts in the bilateral oconnell radiata white matter. 3. Confluent T2 hyperintensity within the central michael may reflect prominent chronic gliotic change, but can be seen with pontine myelinolysis/demyelination in the appropriate clinical setting. Reading Location: [facility] Chest X-Ray 02/28/25 03:00 IMPRESSION: Persistent right medial basal airspace disease, possible pneumonia. Reading Location: [place] [address] Assessment and Plan . Assessment and plan: Physical Exam: Gen - NAD, morbidly obese, lethargic HEENT - MMM. Sclera anicteric Resp - Diminished in bases. Mild tachypnea CV - RRR. No m/g/r Abd - Soft, NT, ND Ext - No c/c/e. Skin - No rashes? Neuro - Drowsy on precedex. Intermittent agitation I have reviewed the pertinent vital sign, laboratory, and imaging data. ASSESSMENT: # Acute hypoxic respiratory failure # PNA - suspected aspiration # Acute encephalopathy - concern for EtOH withdrawal given heavy EtOH abuse. Last drink 02/25. CT/MR brain without acute infarct. Likely component of metabolic/septic encephalopathy as well # h/o CVA - noted on MR brain. ?chronic gliosis vs demyelination as well # Fever # Asthma/COPD # Hyponatremia # Anemia # HTN # Obesity # GERD # h/o tobacco use PLAN: -On 3L NC, wean to keep sats ~90-92%. ABG noted. Monitor for need for intubation -Abx broadened to vanc/cefepime/flagl, add doxy as well for atypical coverage (QTc prolonged) f/u Cx, MRSA nares, urine strep/legionella. Viral panel neg but does not appear to include COVID, add this on as well -Monitor mental status. Try stopping precedex and would use PRN ativan for CIWA score instead. Cont phenobarbital taper but hold for excessive sedation -If persistent fever/AMS may need to consider LP, ID consultation -Budesonide, duonebs. Low threshold for systemic steroids if worsening respiratory failure -Obtain echo, elevated BNP -Gentle IVF, monitor Na -Check ammonia, lipase. UDS negative, TSH wnl -D-dimer pending, may need VTE rule out -IV thiamine, MVI FEN/GI: NPO Proph DVT/GI: Lovenox, protonix Updated at bedside Critical Care Time: 60 mins The entirety of this encounter was done via telemedicine using both audio and video. Consent was unable to be obtained for the telemedicine encounter due to the patient's mental status.
--- NOTE | 2025-02-28 14:46 | ECHOCS_ITS ---
Reason For Study Reason For Study: CHF Procedure This was a 2D Doppler, Color Flow transthoracic echocardiogram. The study was technically difficult. Contrast injection was performed. Exam performed portable in ICU/CCU. Left Ventricle Normal LV size. Mild concentric left ventricular hypertrophy. The estimated ejection fraction is 50 %. Normal diastology for age. Right Ventricle Normal RV size. Normal systolic function. Atria The left and right atria are normal. Mitral Valve The mitral valve is structurally normal. No prolapse or stenosis seen. Trivial mitral valve insufficiency. Tricuspid Valve Unable to estimate RV systolic pressure due to insufficient tricuspid regurgitant envelope. Pulmonic Valve Trivial pulmonic valve insufficiency. Great Vessels Normal sized aortic root. Pericardium/Pleural Epicardial fat. Medication Diluted definity 4ml given slow IV push to enhance endocardial definition. MMode/2D Measurements & Calculations LVIDd: 5.4 cm IVSd: 1.3 cm Ao root diam: 3.7 cm LVIDs: 4.1 cm LVPWd: 1.3 cm FS: 23.7 % LAV(MOD-bp): 82.3 ml LVAd ap4: 37.4 cm2 SV(MOD-sp4): 63.5 ml LAV(MOD-bp) Indexed: 34.9 ml/m2 LVLd ap4: 8.2 cm SI(MOD-sp4): 27.0 ml/m2 LAV(MOD-sp2): 85.0 ml EDV(MOD-sp4): 140.0 ml LAV(MOD-sp4): 72.6 ml EDV(sp4-el): 145.7 ml LVAs ap4: 26.0 cm2 LVLs ap4: 7.2 cm ESV(MOD-sp4): 76.5 ml ESV(sp4-el): 79.3 ml EF(MOD-sp4): 45.4 % EF(sp4-el): 45.6 % SV(sp4-el): 66.4 ml LA A4 area: 23.4 cm2 LA dimension(2D): 4.5 cm RA A4 area: 22.2 cm2 TAPSE: 2.1 cm Time Measurements MV dec time: 0.16 sec Doppler Measurements & Calculations MV E max erasmo: 85.1 cm/sec Lat Peak E' Erasmo: 14.6 cm/sec Med Peak E' Erasmo: 14.8 cm/sec MV A max erasmo: 54.3 cm/sec E/E' lat: 5.8 E/E' med: 5.7 MV E/A: 1.6 MV V2 max: 102.4 cm/sec MV P1/2t max erasmo: 104.1 cm/sec Ao V2 max: 102.8 cm/sec MV max P.2 mmHg MV P1/2t: 57.6 msec Ao max P.2 mmHg MV V2 mean: 51.6 cm/sec Ao V2 mean: 70.8 cm/sec MV mean P.3 mmHg MV dec slope: 529.5 cm/sec2 Ao mean P.3 mmHg MV V2 VTI: 26.7 cm MVA(P1/2t): 3.8 cm2 Ao V2 VTI: 19.8 cm AV (velocity ratio): 0.94 LV V1 max: 98.6 cm/sec PA V2 max: 88.9 cm/sec LV V1 max P.9 mmHg LV V1 mean P.3 mmHg LV V1 mean: 72.2 cm/sec LV V1 VTI: 18.7 cm ECHO/Echo Complete W/ Contrast Interpretation Summary Normal LV size. Mild concentric left ventricular hypertrophy. The estimated ejection fraction is 50 %. Normal diastology for age. Normal RV size. Normal systolic function. Unable to estimate RV systolic pressure due to insufficient tricuspid regurgita nt envelope. Ordering Physician: Gamal Calero Performed By: Mukesh Mejias RCS
[2025-02-28] MEDS: dexMEDEtomidine 400 MCG in 0.9% Normal Saline (100mL Bag) 96 ML 18.5 MCG CONT INF (15:15)
[2025-02-28] MEDS: Vancomycin HCl 2,000 MG in 0.9% Normal Saline (500mL Bag) 500 ML 250 MG IV (15:22)
--- NOTE | 2025-02-28 15:23 | PN_ITS ---
Subjective Subjective Patient seen and examined. He was transferred to the ICU overnight due to worsening shortness of breath as he was thought to have aspirated watermelon. He was tachcyardic and developed a fever. This morning, he remained febrile, with temperature up to 103F. HE is on 3L of oxygen. Patient is confused and shivering at time of my review. He was confused. HE was on 5L of oxygne at time of my review, but subsequently came down to 3L. He does have a history of alcohol use disorder, and told me today that his last drink was on Wednesday, 3 days ago. He says he has at least 6 drinks daily. I am concerned that patient is going into DTs. Critical care consulted this morning. Objective Data Objective Data Vital Signs: Vital Signs Temp Pulse Resp BP Pulse Ox O2 Del Method O2 Flow Rate 102.6 F H 70 32 H 106/76 100 Nasal Cannula 3 02/28/25 15:00 02/28/25 15:00 02/28/25 15:00 02/28/25 15:00 02/28/25 15:00 02/28/25 15:00 02/28/25 15:00 Oxygen Flow Rate (L/min) 3 Oxygen Delivery Method Nasal Cannula Weight: 272 lb 0.807 oz Body Mass Index (BMI) 40.3 Intake & Output: Intake and Output for Last 24 Hours 02/26/25 02/27/25 02/28/25 23:59 23:59 23:59 Intake Total 1000 / 1000 3850 / 3850 981.27 / 981.27 Output Total 500 / 500 Balance 1000 / 1000 3847 / 3847 481.27 / 481.27 Lab / Micro Data 02/28/25 03:02 02/28/25 03:02 Labs: Laboratory Results - last 24 hr 02/27/25 17:50: WBC 16.8 H, RBC 4.03 L, Hgb 11.8 L, Hct 36.0 L, MCV 89.3 D, MCH 29.3, MCHC 32.8 D, RDW Std Deviation 46.2 H, RDW Coeff of Carlos 14.1, Plt Count 290, MPV 9.3, Immature Gran % (Auto) 1.100 H, Neut % (Auto) 84.3 H, Lymph % (Auto) 5.2 L, [place] % (Auto) 9.2, Eos % (Auto) 0.0, Baso % (Auto) 0.2, Absolute Neuts (auto) 14.2 H, Absolute Lymphs (auto) 0.88, Nucleated RBC % 0, Differential Comment SCANNED, Platelet Estimate ADEQUATE, Sodium 131 L, Potassium 4.1, Chloride 98, Carbon Dioxide 19.8 L, Anion Gap 13, BUN 20 H, Creatinine 1.17, Estim Creat Clear Calc 80.36, Est GFR (MDRD) Non-Af 69, BUN/Creatinine Ratio 16.7, Glucose 123 H, Calcium 8.5 02/28/25 03:02: WBC 13.3 H, RBC 3.97 L, Hgb 11.7 L, Hct 34.5 L, MCV 86.9, MCH 29.5, MCHC 33.9, RDW Std Deviation 44.6 H, RDW Coeff of Carlos 14.0, Plt Count 249, MPV 9.1, Immature Gran % (Auto) 0.900, Neut % (Auto) 81.8 H, Lymph % (Auto) 7.6 L, [place] % (Auto) 8.8, Eos % (Auto) 0.5, Baso % (Auto) 0.4, Absolute Neuts (auto) 10.9 H, Absolute Lymphs (auto) 1.01, Nucleated RBC % 0, Sodium 129 L, Potassium 4.0, Chloride 96 L, Carbon Dioxide 20.0 L, Anion Gap 12, BUN 18, Creatinine 0.99, Estim Creat Clear Calc 94.97, Est GFR (MDRD) Non-Af 85, BUN/Creatinine Ratio 18.1, Glucose 115 H, Lactic Acid 1.1, Calcium 8.1, Troponin T High Sens 48 H D 02/28/25 05:04: Troponin T Hi Sens 2 Hr 52 H 02/28/25 07:13: Phosphorus 3.3, Magnesium 2.2, Troponin T Hi Sens 4Hr 41 H, NT pro BNP II 1621 H 02/28/25 11:15: Vancomycin Trough 14.7 Micro: Microbiology 02/26/25 20:20 Urine, Clean Catch Urine Culture - Preliminary Culture exhibits no growth. 02/27/25 03:45 Mucosa - Nasopharyngeal Respiratory Panel (PCR) - Final ABG Data ABG results: ABG 02/28/25 02/28/2502/28/25 02:54 03:00 10:31 Specimen Type SERGIO ART ART Sample Site R BRACHIAL R RADIAL L Radial pH 7.44 7.48 H Bicarbonate Actual 23.6 25.5 Total CO2 25 27 Base Excess 0 2 O2 Saturation 95 97 O2 % 3.0 ABG pCO2 36.2 34.3 L ABG pO2 84 85 Pardeep Test NEG Negative VBG pH 7.42 VBG pH (Temp Correct) 7.37 VBG pCO2 (Temp Corrct 30.4 VBG pO2 25 VBG HCO3 26 VBG Total CO2 27 VBG O2 Sat (Calc) 45 L VBG Base Excess 2 POC Mix VBG pCO2 Pt Tmp 40.5 L O2 Delivery Device Nasal Can Nasal Can Not entered Liter Flow 5.0 5.0 Vent Mode Not entered Clinical Comments PT TEMP 40 DEGREES C Temp correct 40.2C Radiography Diagnostic Testing: Radiology Impression Brain MRI 02/27/25 18:02 IMPRESSION: 1. No acute infarct. No mass lesion or pathologic enhancement. 2. Mild-moderate chronic small-vessel ischemic changes with scattered small foci of old lacunar infarcts in the bilateral oconnell radiata white matter. 3. Confluent T2 hyperintensity within the central michael may reflect prominent chronic gliotic change, but can be seen with pontine myelinolysis/demyelination in the appropriate clinical setting. Reading Location: [facility] Chest X-Ray 02/28/25 03:00 IMPRESSION: Persistent right medial basal airspace disease, possible pneumonia. Reading Location: [place] [id number] Physical Exam Const alert Constitutional Narrative: lethargic, having chills and rigors. General Appearance: cooperative Orientation / Consciousness: confused HEENT normocephalic, head/scalp atraumatic, hearing grossly normal bilaterally and moist oral mucous membranes Eyes PERRL, EOMs intact bilaterally and conjunctivae normal Neck no lymphadenopathy, supple and no JVD Lymph Lymphatic: no lymphedema noted Resp Resp Narrative: moderately diminished breath sounds bibasally, no wheezes or crackles. On 3L of oxygen. Effort and Inspection: tachypneic and respiratory distress Cardio regular rate, regular rhythm, S1 normal heart sound, S2 normal heart sound and no murmurs GI normal to inspection, nondistended, normoactive bowel sounds, soft to palpation, non-tender and non-distended GI Narrative: Obese abdomen Extremity normal to inspection, full ROM, normal capillary refill, no clubbing, cyanosis or edema and no calf tenderness General Extremity: no tenderness to palpation of joints or extremities Skin Skin Narrative: Patient has no evidence of rash or jaundice. General Skin Exam: no breakdown Neuro CN's II-XII intact bilaterally Neuro Narrative: patient restless, having tremors and shakes. episodic confusion. Sensorium / Orientation: awake Motor Exam: general weakness Psych Psych Narrative: restless, confused. Assessment & Plan Assessment/Plan (1) Aspiration pneumonia: QUALIFIERS: Aspiration pneumonia type: unspecified Laterality: r ight Lung location: lower lobe of lung Qualified Code(s): J69.0 - Pneumonitis due to inhalation of food and vomit (2) Acute metabolic encephalopathy: PLAN: Plan #Acute alcohol withdrawal, concerning for DTs * patient transferred to ICU overnight due to worsening respiratory status. Patient febrile, tachypneic and more confused and restless * was on 5L of oxygen but now down to 3L of oxygen. * per his nurse, he has been receiving his phenobarb q4 hourly. Will start paitent on precedex drip. * critical care consulted. * ABG done showed pH of 7.48, pCO2 of 34.3 and pO2 of 85. * adjunctive meds for symptomatic relief #Acute hypoxic respiratory failure due to aspiration pneumonia and probable heart failure with unknown EF * patient was transferred out of the ICU yesterday, but transferred back to the ICU in [facility] early hours of this morning due to worsening respiratory status. * wbc is down to 13.3 today, from 17.4 on admission. * on IV vancomycin and cefepime; metronidazole added on overnight due to aspiration * sputum cultures and blood cultures pending. * breathing treatment with bronchodilators. Titrate oxygen to maintain sats >90% * critical care consulted. * pro BNP is 1621. Initial troponin was 48, and trended down to 41. * will start diuresis with IV lasix 40mg bid. Monitor intake and output * 2D echo ordered and pending. Check D dimer also, and if elevated will check CTA chest * Hyponatremia: Sodium was 126 on admission. Sodium is up to 129 today. Likely due to beer potomania and fluid overload. Will monitor #Nicotine dependence: Counseled to quit. Nicotine patch as needed #Benign essential hypertension: On lisinopril. IV hydralazine as needed #Hyperlipidemia: On statin #GERD: PPI #osteoarthritis: tylenol prn. DVT prophylaxis: lovenox Charges/Coding Visit Charges Inpatient E&M: 50359 Subs Hosp L3
[2025-02-28] MEDS: Dextrose 5%/0.9% NaCl 1,000 ML 100 ML IV (15:37)
[2025-02-28 15:39] LABS: Ammonia 19.7 umol/L (16-60); Lipase 22 U/L (13-75)
[2025-02-28] MEDS: Thiamine Hydrochloride 200 MG in 0.9% Normal Saline (50mL Bag) 50 ML IV (15:39)
[2025-02-28] MEDS: Doxycycline 100 MG in 0.9% Normal Saline (250mL Bag) 250 ML 250 MG IV ×2 (16:05→22:53)
[2025-02-28 18:27] LABS: D-Dimer Quantitative (DVT/PE) 2.78 FEU/ug/m (0.27-0.49)
--- NOTE | 2025-02-28 18:28 | CT_ITS ---
PROCEDURE: CTA CHEST W/WO CONTRAST 02/28/2025 REASON FOR EXAM: ELEVATED D DIMER TECHNIQUE: CTA CHEST W/WO CONTRAST Multiplanar Sagittal and Coronal images were obtained. 3D post processing was performed. CONTRAST: Isovue 370 VOLUME: 100 mL One or more dose reduction techniques were used (e.g., Automated exposure control, adjustment of the mA and/or kV according to patient size, use of iterative reconstruction technique). RADIATION DOSE SUMMARY: DLP: 617.14 mGycm COMPARISON: CT chest 02/27/2025. FINDINGS: PULMONARY VESSELS: No central pulmonary arterial emboli filling defects. The segmental and subsegmental pulmonary arterial branches are not adequately evaluated due to significant respiratory motion artifact. Normal caliber pulmonary trunk. No evidence for right heart strain. LUNGS/PLEURA: Respiratory motion artifact. Interval increased dense consolidation and/or atelectasis within the majority of the right lower lobe, consistent with lobar pneumonia. Small right pleural effusion. No pneumothorax. Central airways are patent. MEDIASTINUM: Mediastinal lymphadenopathy, particularly with multiple enlarged right hilar and peribronchial/subcarinal lymph nodes, most likely reactive. HEART: Borderline enlarged. No pericardial effusion. Minimal coronary artery calcifications. THORACIC AORTA: Normal in course and caliber. Mild atherosclerotic calcifications. UPPER ABDOMEN: No significant abnormality visualized. BONES: Mild degenerative changes of the spine. Chronic superior endplate mild compression fracture deformity of L1 vertebral body with minimal height loss. CT/CTA Chest W/WO Contrast IMPRESSION: 1. Right lower lobar pneumonia, substantially increased from prior exam. 2. Associated small right parapneumonic pleural effusion. 3. Presumed reactive right hilar and mediastinal lymphadenopathy. 4. No central pulmonary arterial emboli. Segmental-subsegmental branches are n ot adequately evaluated on this exam due to significant respiratory motion artifact. Reading Location: [id number]
[2025-02-28] MEDS: Lorazepam 2 MG/ML WCH Syringe 1 MG IV (19:51)
[2025-02-28] MEDS: Budesonide Respules 0.5 MG/2 ML AMPUL.NEB. INHALATION (20:17)
[2025-02-28] MEDS: Lactobacillis Acidophilus 1 CAP PO (21:16)
[2025-02-28] MEDS: hydrOXYzine PAM 25 MG Capsule 50 MG PO (21:19)
[2025-03-01] VITALS (31 sets, daily range): BP systolic 103–159; BP diastolic 59–93; PULSE 68–136; RESP 19–38; TEMP 37.3–40.1; O2SAT 90–100; BMI 40.8
[2025-03-01] MEDS: Lorazepam 2 MG/ML WCH Syringe 1 MG IV (00:45)
[2025-03-01] MEDS: 0.9% Saline Lock 10 ML Syringe IV ×6 (00:47→21:23)
[2025-03-01] MEDS: Dextrose 5%/0.9% NaCl 1,000 ML 100 ML IV (01:50)
[2025-03-01] MEDS: Vancomycin HCl 2,000 MG in 0.9% Normal Saline (500mL Bag) 500 ML 250 MG IV (01:51)
--- NOTE | 2025-03-01 04:10 | RAD_ITS ---
PROCEDURE: CHEST 1 VIEW (PORTABLE) 03/01/2025 REASON FOR EXAM: POSSIBLE FLUID OVERLOAD TECHNIQUE: Frontal view of the chest. COMPARISON: 02/28/2025 FINDINGS: Rotated and lordotic patient. Normal heart size. Persistent right base airspace disease, atelectasis/consolidation. Possible developing right central mid lung airspace disease. No effusion or pneumothorax. RAD/Chest 1 View (Portable) IMPRESSION: Suspect interval worsening in right mid and lower lung zone airspace disease. Reading Location: [facility]
[2025-03-01 04:55] LABS: Hematocrit 37.8 % (40-54); Hemoglobin 11.9 g/dL (13.0-16.5); Immature Granulocytes Count 0.110 X10^3/uL (0.0-0.0); Mean Corp Hgb Conc 31.5 g/dL (32-36); Mean Corpuscular Volume 91.3 fL (80-94); Mean Platelet Vol. 10.7 fl (6.2-12.0); NRBC Flagged by Analyzer 0 % (0-5); POSITIVE COUNT YES; RBC Distribution Width CV 14.6 % (11.6-14.6); RBC Distribution Width SD 49.4 fl (35.1-43.9); Red Blood Count 4.14 M/mm3 (4.6-6.2); White Blood Count 13.0 K/mm3 (4.4-11.0)
[2025-03-01 04:57] LABS: Differential Indicated SCAN CRITERIA MET
[2025-03-01 05:10] LABS: Pro- Brain NATRIURETIC PEPTIDE 2914 pg/mL (<=900)
[2025-03-01 05:13] LABS: Anion Gap 11 (5-15); BUN 18 mg/dL (4-19); BUN/Creat Ratio 16.7 RATIO (10-20); Calcium,Total 7.6 mg/dL (7.6-11.0); Carbon Dioxide 20.5 mmol/L (21.0-32.0); Chloride 103 mmol/L (98-108); Estimated Creatinine Clearance 87.71 ml/min (50-250); Glucose 109 mg/dL (70-99); Potassium 4.3 mmol/L (3.3-5.1)
[2025-03-01 05:30] LABS: Differential Comment SCANNED
[2025-03-01] MEDS: metroNIDAZOLE 500 MG/100 ML BAG 100 MG IV ×3 (05:45→21:18)
[2025-03-01] MEDS: CHLORHEXIDINE GLUC 2% CLOTH 1 EACH TOWELETTE TOPICAL (05:45)
[2025-03-01] MEDS: dexMEDEtomidine 400 MCG in 0.9% Normal Saline (100mL Bag) 96 ML 15.4 MCG CONT INF (05:45)
[2025-03-01] MEDS: Budesonide Respules 0.5 MG/2 ML AMPUL.NEB. INHALATION ×2 (06:46→20:56)
[2025-03-01] MEDS: TITRATION PARAMETER CHANGE 1 EACH IV (07:27)
[2025-03-01] MEDS: Pantoprazole Sodium 40 MG in 0.9% Normal Saline (100mL MB+) 100 ML 300 MG IV (08:51)
--- NOTE | 2025-03-01 09:03 | PN.CC_ITS ---
Objective Data Objective Data Vital Signs: Vital Signs Last response 3 Temperature 39.7 C H 03/01/25 07:00 Temperature Source Core 03/01/25 07:00 Pulse Rate 95 03/01/25 07:00 Pulse Strength Normal (2+) 02/28/25 10:00 Respiratory Rate 35 H 03/01/25 07:00 Respiratory Effort Short of Breath 03/01/25 04:00 Respiratory Depth Shallow 03/01/25 04:00 Respiratory Pattern Tachypnea 03/01/25 06:47 Blood Pressure 114/66 03/01/25 07:00 Blood Pressure Mean 82 03/01/25 07:00 Blood Pressure Source Monitor 03/01/25 07:00 Blood Pressure Position Semi-Fowlers 03/01/25 07:00 Blood Pressure Location Left Arm 03/01/25 07:00 Pulse Ox 95 03/01/25 07:00 Oxygen Delivery Method Nasal Cannula 03/01/25 07:00 Oxygen Flow Rate (L/min) 3 03/01/25 07:00 Fraction of Inspired Oxygen (FIO2) 5 02/28/25 17:00 I&O: I&O Last 24 Hours 3 02/28/25 02/28/25 03/01/25 11:59 23:59 11:59 Intake Total 748.87 / 2173.04 1417.24 / 2173.04 2188.06 / 2188.06 Output Total 250 / 1375 1125 / 1375 400 / 400 Balance 498.87 / 798.04 292.24 / 798.04 1788.06 / 1788.06 I&O: Total Stay 3 02/26/25 20:48 thru 03/01/25 07:00 Intake Total 9204.17 Output Total 1778 Balance 7426.17 Current Meds Ordered / Administered: Current meds ordered / Administered 3 Generic Name Dose Route Start Last Admin Trade Name Freq PRN Reason Stop Dose Admin Acetaminophen 650 mg 02/28/25 11:30 02/28/25 17:05 Acetaminophen 650 Mg Suppository RC 650 mg Q4H PRN PRN Administration FEVER Acetaminophen 650 mg 03/01/25 01:35 03/01/25 05:49 Acetaminophen 325 Mg Tablet PO 650 mg Q4H PRN PRN Administration Pain 1-10 or Fever Albuterol/Ipratropium 3 ml 02/27/25 02:02 02/28/25 03:08 Ipratropium/Albuterol Sulfate 3 Ml Ampul.Neb INHALATION 3 ml Q4H PRN PRN Administration wheezing Albuterol/Ipratropium 3 ml 02/27/25 02:30 03/01/25 06:46 Ipratropium/Albuterol Sulfate 3 Ml Ampul.Neb INHALATION 3 ml Q6HWA.RT GABBY Administration Atorvastatin Calcium 80 mg 02/27/25 22:00 02/28/25 21:16 Atorvastatin Calcium 80 Mg Tablet PO 80 mg QHS GABBY Administration Budesonide 0.5 mg 02/28/25 18:15 03/01/25 06:46 Budesonide Respules 0.5 Mg/2 Ml Ampul.Neb. INHALATION 0.5 mg BID.RT GABBY Administration Chlorhexidine Gluconate 1 each 02/28/25 10:00 03/01/25 05:45 Chlorhexidine Gluc 2% Cloth 1 Each Towelette TOPICAL 1 each DAILY GABBY Administration Clopidogrel Bisulfate 75 mg 02/27/25 10:00 02/28/25 11:53 Clopidogrel Bisulfate 75 Mg Tablet PO Not Given DAILY GABBY Dicyclomine HCl 20 mg 02/27/25 02:02 Dicyclomine 10 Mg Capsule PO Q6H PRN PRN abdominal discomfort Enoxaparin Sodium 40 mg 02/27/25 10:00 03/01/25 08:34 Enoxaparin 40 Mg/0.4 Ml Syringe SC 40 mg DAILY GABBY Administration Folic Acid 1 mg 02/27/25 08:00 03/01/25 08:32 Folic Acid 1 Mg Tablet PO Not Given BREAKFAST GABBY Furosemide 40 mg 02/28/25 16:30 03/01/25 08:35 Furosemide 40 Mg/4 Ml Vial IV 40 mg BIDLX GABBY Administration Protocol Gabapentin 300 mg 02/27/25 02:02 02/27/25 12:15 Gabapentin 300 Mg Capsule PO 300 mg Q8H PRN PRN Administration moderate to severe anxiety Hydroxyzine Pamoate 50 mg 02/27/25 02:02 02/28/25 21:19 Hydroxyzine Jodee 25 Mg Capsule PO 50 mg Q4H PRN PRN Administration mild anxiety Vancomycin IV-PHARMACY TO DOSE 500 mls @ 250 mls/hr 02/27/25 02:02 1 each/ Sodium Chloride IV X1 PRN Rx to Dose Protocol Cefepime HCl 2 gm/ Sodium 100 mls @ 200 mls/hr 02/27/25 10:00 02/28/25 21:59 Chloride IV Infused Q12 GABBY Infusion Sodium Chloride 250 mls @ 15 mls/hr 02/27/25 02:04 IV .[id number] PRN Saline Flush Sodium Chloride 250 mls @ 15 mls/hr 02/27/25 02:04 IV .[id number] PRN Additional IVPB Infusion Metronidazole 500 mg in 100 mls @ 100 mls/hr 02/28/25 02:45 03/01/25 08:59 Flagyl IV 100 mls/hr Q8 GABBY Administration Pantoprazole Sodium 40 mg/ 100 mls @ 300 mls/hr 02/28/25 10:00 03/01/25 08:51 Sodium Chloride IV 300 mls/hr Q24 GABBY Administration Dexmedetomidine HCl 400 mcg/ 100 mls @ 15.625 mls/hr 02/28/25 10:30 03/01/25 07:00 Sodium Chloride CONT INF 0.5 mcg/kg/hr .Q6H24M GABBY 15.4 mls/hr Titration Protocol 0.5 MCG/KG/HR Vancomycin HCl 2,000 mg/ 540 mls @ 250 mls/hr 02/28/25 14:00 03/01/25 04:10 Sodium Chloride IV Infused Q12H GABBY Infusion Doxycycline Hyclate 100 mg/ 250 mls @ 250 mls/hr 02/28/25 16:00 03/01/25 01:38 Sodium Chloride IV Infused Q12 GABBY Infusion Thiamine HCl 200 mg/ Sodium 52 mls @ 200 mls/hr 02/28/25 16:00 02/28/25 16:39 Chloride IV Infused DAILY GABBY Infusion Loperamide HCl 2 mg 02/27/25 02:02 Loperamide 2 Mg Capsule PO Q4H PRN PRN DIARRHEA/LOOSE STOOLS Lorazepam 1 mg 03/01/25 01:11 03/01/25 05:36 Lorazepam 2 Mg/Ml Syringe IV 1 mg Q4H PRN PRN Administration Alcohol Withdrawal Montelukast Sodium 10 mg 02/27/25 10:00 02/28/25 07:51 Montelukast 10 Mg Tablet PO Not Given DAILY [facility] Multivitamins 1 tablet 03/01/25 12:00 Multivitamins,Therapeutic Tablet PO LUNCH GABBY Nicotine 14 mg 02/27/25 02:02 03/01/25 08:35 Nicotine 14 Mg Patch TD 14 mg DAILY GABBY Administration Ondansetron HCl 8 mg 02/27/25 02:02 Ondansetron 8 Mg Tablet PO Q8H PRN PRN NAUSEA Phenobarbital 65 mg 02/28/25 21:00 03/01/25 08:31 Phenobarbital Sodium 65 Mg/Ml Vial IV 03/03/25 16:59 65 mg Q4H GABBY Administration Taper Sodium Chloride 10 - 40 ml 02/27/25 02:04 03/01/25 05:35 0.9% Saline Lock 10 Ml Syringe IV 20 ml UD PRN Administration SALINE FLUSH Trazodone HCl 100 mg 02/27/25 02:02 Trazodone 100 Mg Tablet PO QHS PRN PRN INSOMNIA Vancomycin Protocol 1 lab 03/02/25 00:30 Vancomycin Trough/Random Due MC 03/02/25 02:30 DAILY GABBY Lab / Micro Data 03/01/25 04:36 03/01/25 04:36 Labs: Laboratory Results - last 24 hr 02/28/25 11:15: Vancomycin Trough 14.7 02/28/25 15:00: Ammonia 19.7, Lipase 22 02/28/25 16:25: D-Dimer Quant (PE/DVT) 2.78 H* 03/01/25 04:36: WBC 13.0 H, RBC 4.14 L, Hgb 11.9 L, Hct 37.8 L, MCV 91.3 D, MCH 28.7, MCHC 31.5 L D, RDW Std Deviation 49.4 H, RDW Coeff of Carlos 14.6, Plt Count TNP, MPV 10.7, Immature Gran % (Auto) 0.800, Neut % (Auto) 82.5 H, Lymph % (Auto) 8.4 L, [place] % (Auto) 7.3, Eos % (Auto) 0.2, Baso % (Auto) 0.8, Absolute Neuts (auto) 10.7 H, Absolute Lymphs (auto) 1.09, Nucleated RBC % 0, Differential Comment SCANNED, Platelet Estimate ADEQUATE, Sodium 134, Potassium 4.3, Chloride 103, Carbon Dioxide 20.5 L, Anion Gap 11, BUN 18, Creatinine 1.09, Estim Creat Clear Calc 87.71, Est GFR (MDRD) Non-Af 75, BUN/Creatinine Ratio 16.7, Glucose 109 H, Calcium 7.6, NT pro BNP II 2914 H Micro: Microbiology 02/26/25 20:20 Urine, Clean Catch Urine Culture - Final Mixed Gram Positive Organisms 02/26/25 21:05 Blood Culture (Wb) - Anticubital Left Blood Culture - Preliminary No growth in 48 hours. 02/26/25 20:55 Blood Culture (Wb) - Left Wrist Blood Culture - Preliminary No growth in 48 hours. 02/28/25 20:15 Mucosa - Nasopharyngeal Coronavirus COVID-19 PCR - Final 02/28/25 18:20 Nasal Secretion MRSA (PCR) - Final 02/28/25 15:15 Urine Catheter - Schreiber Legionella Antigen - Final 02/28/25 15:15 Urine Catheter - Schreiber Streptococcus pneumoniae Antigen (M - Final ABG Data ABG results: ABG 02/28/25 10:31 Specimen Type ART Sample Site L Radial pH 7.48 H Bicarbonate Actual 25.5 Total CO2 27 Base Excess 2 O2 Saturation 97 O2 % 3.0 ABG pCO2 34.3 L ABG pO2 85 Pardeep Test Negative O2 Delivery Device Not entered Vent Mode Not entered Imaging Radiology Impression Echocardiogram 02/28/25 14:46 Interpretation Summary Normal LV size. Mild concentric left ventricular hypertrophy. The estimated ejection fraction is 50 %. Normal diastology for age. Normal RV size. Normal systolic function. Unable to estimate RV systolic pressure due to insufficient tricuspid regurgitant envelope. Ordering Physician: Gamal Calero Performed By: Mukesh Mejias RCS Chest CTA 02/28/25 18:28 IMPRESSION: 1. Right lower lobar pneumonia, substantially increased from prior exam. 2. Associated small right parapneumonic pleural effusion. 3. Presumed reactive right hilar and mediastinal lymphadenopathy. 4. No central pulmonary arterial emboli. Segmental-subsegmental branches are not adequately evaluated on this exam due to significant respiratory motion artifact. Reading Location: [id number] Chest X-Ray 03/01/25 04:10 IMPRESSION: Suspect interval worsening in right mid and lower lung zone airspace disease. Reading Location: [place] [id number] Assessment and Plan . Assessment and plan: Subjective: no acute events o/n. Remains febrile Physical Exam: Gen - NAD, morbidly obese, lethargic HEENT - MMM. Sclera anicteric Resp - Prolonged exp phase, diminished air movement. Tachypneic CV - RRR. No m/g/r Abd - Soft, NT, ND Ext - No c/c/e. Skin - No rashes? Neuro - Drowsy on precedex. Intermittent agitation I have reviewed the pertinent vital sign, laboratory, and imaging data. ASSESSMENT: # Acute hypoxic respiratory failure # PNA - suspected aspiration # Acute encephalopathy - concern for EtOH withdrawal given heavy EtOH abuse. Last drink 02/25. CT/MR brain without acute infarct. Likely component of metabolic/septic encephalopathy as well # h/o CVA - noted on MR brain. ?chronic gliosis vs demyelination as well # Fever # Asthma/COPD # Hyponatremia # Anemia # HTN # Obesity # GERD # h/o tobacco use PLAN: -Try switching to HHFNC to see if improves WOB. Wean to keep sats ~90-92% -Cont vanc/cefepime/flagyl/doxy, f/u Cx. MRSA nares, urine strep/legionella, viral panel neg. May be able to stop vanc if improving -Monitor mental status. Cont PRN ativan per CIWA score, PRN precedex. Cont phenobarbital taper but hold for excessive sedation. Ammonia, TSH wnl. UDS neg -Agree with ID consult given persistent fever. May need to consider LP as well. Check procal -CTA chest with RLL PNA, no large PE noted. CT A/P without acute pathology -Monitor for worsening R pleural effusion -Budesonide, duonebs. Add solumedrol today -TTE w/ LVEF 50%, normal RV. -IVF stopped, receiving dose of lasix today. Avoid overdiuresis/volume depletion -IV thiamine, MVI FEN/GI: NPO until more awake Proph DVT/GI: Lovenox, protonix Updated at bedside yest Critical Care Time: 50 mins The entirety of this encounter was done via telemedicine using both audio and video. Consent was unable to be obtained for the telemedicine encounter due to the patient's mental status.
[2025-03-01] MEDS: Thiamine Hydrochloride 200 MG in 0.9% Normal Saline (50mL Bag) 50 ML IV (09:12)
--- NOTE | 2025-03-01 09:28 | CASEMGMT ---
Per ICU rounds, pt has spiked a fever of 104 degrees F. ID is consulted. Pt has swallowing issues, see ST notes. Plan for swallow study tomorrow, per ICU rounds. PT most likely to be held again today. CM to continue to follow for safe DC planning.
[2025-03-01] MEDS: Doxycycline 100 MG in 0.9% Normal Saline (250mL Bag) 250 ML 250 MG IV ×2 (09:50→22:37)
[2025-03-01 09:53] LABS: AST(SGOT) 77 U/L (<=37); Alanine Aminotransfer ALT/SGPT 48 U/L (<=46); Albumin, Serum 3.2 g/dL (3.4-4.8); Alkaline Phosphatase 95 U/L (40-129); Bilirubin, Direct 0.24 mg/dL (0.00-0.30); Globulin 3.1 g/dL (2.2-4.2)
[2025-03-01] MEDS: Cefepime HCl 2 GM in 0.9% Normal Saline (100mL MB+) 100 ML IV ×2 (09:53→20:43)
--- NOTE | 2025-03-01 10:45 | CON.PCM.ID_ITS ---
Assessment & Plan Assessment/Plan (1) Sepsis: QUALIFIERS: Sepsis type: sepsis due to unspecified organism S epsis acute organ dysfunction status: with acute organ dysfunction Severe sepsis acute organ dysfunction type: encephalopathy Severe sepsis shock status: without septic shock Qualified Code(s): A41.9 - Sepsis, unspecified organism; R65.20 - Severe sepsis without septic shock; G93.41 - Metabolic encephalopathy PLAN: Still high fever, infectious workup neg so far besides for presumed aspiration pneumonia. Lyme pending. Etoh withdrawal could be playing a part in his temps. Cont broad coverage for now with vanc, cefepime, doxy, flagyl. Low suspicion for meningitis at this time if he is able to wake and interact without head/neck pain when sedation is weaned. Will follow, thank you, d/w nursing (2) Aspiration pneumonia: QUALIFIERS: Aspiration pneumonia type: unspecified Laterality: r ight Lung location: lower lobe of lung Qualified Code(s): J69.0 - Pneumonitis due to inhalation of food and vomit (3) Acute metabolic encephalopathy: HPI Consult Data Date of Consult: 03/01/25 HPI Narrative Reason for Consultation: fever HPI Narrative: ELIS BILLS, is a 64 M with h/o etoh abuse, obesity, COPD presented to [facility] 02/25 with 2 days confusion, fall at home. Had some pain in knee per 's report in ED. Admitted to icu, now on vanc/cefepime/flagyl/doxy and iv steroids. Still with high fevers. Per nursing, when precedex is weaned, he is awake, talking, interactive, able to move head/neck. Full ROS limited due to to mental status. [facility] Medical History Hyperlipemia Hypertension GERD (gastroesophageal reflux disease) Home Medications ?Medication ?Instructions ?Recorded ?Last Taken ?Type atorvastatin 80 mg tablet 80 mg PO DAILY 03/22/2211/07 History clopidogrel 75 mg tablet 75 mg PO DAILY 03/22/2211/07 History lisinopril 2.5 mg tablet 2.5 mg PO DAILY 03/22/2211/07 History esomeprazole magnesium 40 mg 40 mg PO DAILY 02/26/25 U nknown History capsule,delayed release folic acid 1 mg tablet 1 mg PO DAILY 02/26/25 Unkno wn History ipratropium 0.5 mg-albuterol 3 mg 3 ml continuous nebu lization Q4H 02/26/25 Unknown History (2.5 mg base)/3 mL nebulization PRN PRN wheezing soln montelukast 10 mg tablet 10 mg PO DAILY 02/26/25 Unkn own History thiamine HCl (vitamin B1) 100 mg 100 mg PO DAILY 02/26 Unknown History tablet umeclidinium 62.5 mcg-vilanterol 1 ea inhalation DAILY 02/26/25 Unknown History 25 mcg/actuation powdr for inhalation (Anoro Ellipta) Allergy/AdvReac Type Severity Reaction Status Date / Time Penicillins (PCN) Allergy Unknown - Verified 02/28/25 10:02 WAS A BABY Social History Smoking Status: Current every day smoker tobacco type: cigarettes Physical Exam Const no apparent distress General Appearance: lethargic HEENT normocephalic and head/scalp atraumatic Eyes PERRL and EOMs intact bilaterally Neck supple and No nodes Resp Auscultation: rhonchi and diminished lung sounds Cardio regular rate and regular rhythm GI soft to palpation, non-tender and non-distended Extremity General Extremity: edema Skin no rashes or lesions noted Neuro CN's II-XII intact bilaterally Lab / Micro Data Attestation: I reviewed the patient's lab results. 03/01/25 04:36 03/01/25 04:36 Labs: Laboratory Results - last 24 hr 02/28/25 11:15: Vancomycin Trough 14.7 02/28/25 15:00: Ammonia 19.7, Lipase 22 02/28/25 16:25: D-Dimer Quant (PE/DVT) 2.78 H* 03/01/25 04:36: WBC 13.0 H, RBC 4.14 L, Hgb 11.9 L, Hct 37.8 L, MCV 91.3 D, MCH 28.7, MCHC 31.5 L D, RDW Std Deviation 49.4 H, RDW Coeff of Carlos 14.6, Plt Count TNP, MPV 10.7, Immature Gran % (Auto) 0.800, Neut % (Auto) 82.5 H, Lymph % (Auto) 8.4 L, [place] % (Auto) 7.3, Eos % (Auto) 0.2, Baso % (Auto) 0.8, Absolute Neuts (auto) 10.7 H, Absolute Lymphs (auto) 1.09, Nucleated RBC % 0, Differential Comment SCANNED, Platelet Estimate ADEQUATE, Sodium 134, Potassium 4.3, Chloride 103, Carbon Dioxide 20.5 L, Anion Gap 11, BUN 18, Creatinine 1.09, Estim Creat Clear Calc 87.71, Est GFR (MDRD) Non-Af 75, BUN/Creatinine Ratio 16.7, Glucose 109 H, Calcium 7.6, Total Bilirubin 0.47, Direct Bilirubin 0.24, A ST 77 H, ALT 48 H, Alkaline Phosphatase 95, NT pro BNP II 2914 H, Total Protein 6.3, Albumin 3.2 L, Globulin 3.1 Micro: Microbiology 02/26/25 20:20 Urine, Clean Catch Urine Culture - Final Mixed Gram Positive Organisms 02/26/25 21:05 Blood Culture (Wb) - Anticubital Left Blood Culture - Preliminary No growth in 48 hours. 02/26/25 20:55 Blood Culture (Wb) - Left Wrist Blood Culture - Preliminary No growth in 48 hours. 02/28/25 20:15 Mucosa - Nasopharyngeal Coronavirus COVID-19 PCR - Final 02/28/25 18:20 Nasal Secretion MRSA (PCR) - Final 02/28/25 15:15 Urine Catheter - Schreiber Legionella Antigen - Final 02/28/25 15:15 Urine Catheter - Schreiber Streptococcus pneumoniae Antigen (M - Final Imaging Radiology Impression Echocardiogram 02/28/25 14:46 Interpretation Summary Normal LV size. Mild concentric left ventricular hypertrophy. The estimated ejection fraction is 50 %. Normal diastology for age. Normal RV size. Normal systolic function. Unable to estimate RV systolic pressure due to insufficient tricuspid regurgitant envelope. Ordering Physician: Gamal Calero Performed By: Mukesh Mejias RCS Chest CTA 02/28/25 18:28 IMPRESSION: 1. Right lower lobar pneumonia, substantially increased from prior exam. 2. Associated small right parapneumonic pleural effusion. 3. Presumed reactive right hilar and mediastinal lymphadenopathy. 4. No central pulmonary arterial emboli. Segmental-subsegmental branches are not adequately evaluated on this exam due to significant respiratory motion artifact. Reading Location: [id number] Chest X-Ray 03/01/25 04:10 IMPRESSION: Suspect interval worsening in right mid and lower lung zone airspace disease. Reading Location: [facility]
[2025-03-01 11:09] LABS: Allen Test Positive; Base Excess -2 mmol/L (-2 to +2); Comment airvo; FI02 45.0; PO2 77 mmHG (75-100); SITE R Radial; SO2 95 % (95-99)
[2025-03-01 11:18] LABS: Procalcitonin 1.22 ng/mL (<=0.10)
--- NOTE | 2025-03-01 11:52 | PN.HOSP_ITS ---
Reason for Visit Chief Complaint: AMS. Subjective Subjective Saw patient at bedside this morning. Patient opened his eyes on command but was quite somnolent and did not answer any questions for me. Objective Data Objective Data Vital Signs: Vital Signs Temp Pulse Resp BP Pulse Ox O2 Del Method O2 Flow Rate 102.2 F H 89 34 H 124/93 H 92 Airvo 40 03/01/25 11:00 03/01/25 11:00 03/01/25 11:00 03/01/25 11:00 03/01/25 11:00 03/01/25 11:00 03/01/25 11:00 FiO2 45 03/01/25 11:00 Oxygen Flow Rate (L/min) 40 Oxygen Delivery Method Airvo Weight: 125 kg Body Mass Index (BMI) 40.8 Intake & Output: Intake and Output for Last 24 Hours 02/27/25 02/28/25 03/01/25 23:59 23:59 23:59 Intake Total 3850 / 3850 2166.11 / 2173.04 2832.09 / 2832.09 Output Total 1375 / 1375 400 / 400 Balance 3847 / 3847 791.11 / 798.04 2432.09 / 2432.09 Lab / Micro Data 03/01/25 04:36 03/01/25 04:36 Labs: Laboratory Results - last 24 hr 02/28/25 11:15: Vancomycin Trough 14.7 02/28/25 15:00: Ammonia 19.7, Lipase 22 02/28/25 16:25: D-Dimer Quant (PE/DVT) 2.78 H* 03/01/25 04:36: WBC 13.0 H, RBC 4.14 L, Hgb 11.9 L, Hct 37.8 L, MCV 91.3 D, MCH 28.7, MCHC 31.5 L D, RDW Std Deviation 49.4 H, RDW Coeff of Carlos 14.6, Plt Count TNP, MPV 10.7, Immature Gran % (Auto) 0.800, Neut % (Auto) 82.5 H, Lymph % (Auto) 8.4 L, [place] % (Auto) 7.3, Eos % (Auto) 0.2, Baso % (Auto) 0.8, Absolute Neuts (auto) 10.7 H, Absolute Lymphs (auto) 1.09, Nucleated RBC % 0, Differential Comment SCANNED, Platelet Estimate ADEQUATE, Sodium 134, Potassium 4.3, Chloride 103, Carbon Dioxide 20.5 L, Anion Gap 11, BUN 18, Creatinine 1.09, Estim Creat Clear Calc 87.71, Est GFR (MDRD) Non-Af 75, BUN/Creatinine Ratio 16.7, Glucose 109 H, Calcium 7.6, Total Bilirubin 0.47, Direct Bilirubin 0.24, A ST 77 H, ALT 48 H, Alkaline Phosphatase 95, NT pro BNP II 2914 H, Total Protein 6.3, Albumin 3.2 L, Globulin 3.1, Procalcitonin 1.22 H Micro: Microbiology 02/26/25 20:20 Urine, Clean Catch Urine Culture - Final Mixed Gram Positive Organisms 02/26/25 21:05 Blood Culture (Wb) - Anticubital Left Blood Culture - Preliminary No growth in 48 hours. 02/26/25 20:55 Blood Culture (Wb) - Left Wrist Blood Culture - Preliminary No growth in 48 hours. 02/28/25 20:15 Mucosa - Nasopharyngeal Coronavirus COVID-19 PCR - Final 02/28/25 18:20 Nasal Secretion MRSA (PCR) - Final 02/28/25 15:15 Urine Catheter - Schreiber Legionella Antigen - Final 02/28/25 15:15 Urine Catheter - Schreiber Streptococcus pneumoniae Antigen (M - Final 02/27/25 03:45 Mucosa - Nasopharyngeal Respiratory Panel (PCR) - Final ABG Data ABG results: ABG 03/01/25 11:06 Specimen Type ART Sample Site R Radial pH 7.40 Bicarbonate Actual 22.8 Total CO2 24 Base Excess -2 O2 Saturation 95 O2 % 45.0 ABG pCO2 36.7 ABG pO2 77 Pardeep Test Positive O2 Delivery Device Not entered Vent Mode Not entered Clinical Comments airvo Radiography Diagnostic Testing: Radiology Impression Echocardiogram 02/28/25 14:46 Interpretation Summary Normal LV size. Mild concentric left ventricular hypertrophy. The estimated ejection fraction is 50 %. Normal diastology for age. Normal RV size. Normal systolic function. Unable to estimate RV systolic pressure due to insufficient tricuspid regurgitant envelope. Ordering Physician: Gamal Calero Performed By: Mukesh Mejias RCS Chest CTA 02/28/25 18:28 IMPRESSION: 1. Right lower lobar pneumonia, substantially increased from prior exam. 2. Associated small right parapneumonic pleural effusion. 3. Presumed reactive right hilar and mediastinal lymphadenopathy. 4. No central pulmonary arterial emboli. Segmental-subsegmental branches are not adequately evaluated on this exam due to significant respiratory motion artifact. Reading Location: [facility] Chest X-Ray 03/01/25 04:10 IMPRESSION: Suspect interval worsening in right mid and lower lung zone airspace disease. Reading Location: [place] [id number] Physical Exam Const alert and no apparent distress Constitutional Narrative: Elderly male, class III obesity, somnolent appearing but does awake and make appropriate eye contact to voice, increased work of breathing noted on nasal cannula, otherwise laying back comfortably. General Appearance: cooperative and comfortable Orientation / Consciousness: lethargic HEENT normocephalic, head/scalp atraumatic, hearing grossly normal bilaterally, nasal mucous membranes and turbinates normal and moist oral mucous membranes Eyes PERRL, EOMs intact bilaterally and conjunctivae normal Neck full ROM Chest inspection of chest normal Resp Resp Narrative: Increased work of breathing with use of accessory abdominal muscles noted. Crackles noted in bilateral lower lungs, worse on right. No wheezing noted. Cardio regular rate, regular rhythm, no murmurs and peripheral pulses 2+ throughout GI normal to inspection, nondistended, normoactive bowel sounds, soft to palpation, non-tender and non-distended Back/Spine normal ROM Extremity Extremity Narrative: Trace lower extremity edema noted. Skin no rashes or lesions noted Assessment & Plan Assessment/Plan (1) Acute hypoxic respiratory failure: (2) Aspiration pneumonia: QUALIFIERS: Aspiration pneumonia type: unspecified Laterality: r ight Lung location: lower lobe of lung Qualified Code(s): J69.0 - Pneumonitis due to inhalation of food and vomit (3) Acute metabolic encephalopathy: PLAN: Plan Patient is a 64-year-old male who presented to [facility] ED on 02/26/2025 with altered mentation. 1. Acute hypoxic respiratory failure due to aspiration pneumonia versus pneumonitis and mild HFpEF exacerbation ? Staff Auditor and ID following. Not on home oxygen. Present with cough, fevers to 103F [address] leukocytosis. CT chest showed right lower lobe consolidative airspace disease concerning for aspiration pneumonia. Had witnessed aspiration event on patient observer of hospital day 2 requiring transfer to the ICU. CTA chest on 02/28 showed no PE, did show substantially worse right lower lobe pneumonia with reactive lymphadenopathy. BNP 1400 on 02/28 concerning for new onset heart failure. Echo showed EF 50%, mild concentric LV hypertrophy, no other concerning findings. BNP worsened to 2900 on 03/01 despite good diuresis on IV Lasix; suspect this is secondary to elevated pulmonary pressures in setting of severe aspiration pneumonia/pneumonitis. Currently requiring Airvo at 45% and 40 L to maintain appropriate oxygen saturations. Has continued to fever despite broad-spectrum antibiotics. Per ID, suspect fevers are multifactorial from pneumonia as well as alcohol withdrawal as below. Infectious workup negative to this point. Continue broad-spectrum antibiotics with IV vancomycin, cefepime, doxycycline and Flagyl. Holding on further diuresis for now, can consider spot diuresis as needed. Continue scheduled DuoNebs. Wean supplemental oxygen as able. Appreciate specialist recommendations. 2. Acute alcohol withdrawal with concern for DTs ? Reportedly drinks 8-9 beers daily. Alcohol level negative on admit. Per family, has gone through withdrawal at home in the past but has never been hospitalized for this. Notably was confused on admission but became significantly more confused and agitated shortly after arriving to the ICU on hospital day 2. Initiated on phenobarbital taper with some improvement in symptoms but not resolution of symptoms. Currently maintained on Precedex drip with improvement in agitation. Weaning Precedex drip as able. Continue phenobarbital taper and other as needed medications per alcohol withdrawal order set. 3. Acute encephalopathy ? Staff Auditor following as above. Suspect multifactorial due to both respiratory failure due to pneumonia as above as well as alcohol withdrawal. Treatment as above. 4. Hyponatremia, improving ? Sodium 126 on admit. Suspect due to both beer potomania and volume overload. Improved with IV diuresis, most recent sodium 134 on 03/01. Continue to monitor sodium level daily. Chronic medical conditions: ? Class II obesity: BMI 39 on admit. Complicates hospital course and care. ? Nicotine dependence: Nicotine patch in place. Cessation advised. ? Hypertension/hyperlipidemia: Holding home lisinopril given infection as above. Continue home statin. ? GERD: Continue home PPI. ? History of CVA: Continue home Plavix. ? Asthma/COPD: Not in acute exacerbation. Continue home inhalers as well as scheduled DuoNebs as above. DVT prophylaxis: Lovenox CODE STATUS: Full code, verified Expected disposition: TBD Total clinical time spent by myself addressing the patient's medical issues, reviewing all the data, and collaborating with patient's care team: 35 minutes. Charges/Coding Visit Charges Inpatient E&M: 91066 Subs Hosp L2
[2025-03-01] MEDS: Vancomycin HCl 2,000 MG in 0.9% Normal Saline (500mL Bag) 500 ML 275 MG IV (14:47)
[2025-03-01 15:08] LABS: Lyme Scn Total Ab w/Rflx Negative (Negative)
[2025-03-02] VITALS (32 sets, daily range): BP systolic 100–153; BP diastolic 68–126; PULSE 69–168; RESP 18–34; TEMP 36.4–37.6; O2SAT 80–99; BMI 40.5
[2025-03-02 01:48] LABS: Hematocrit 34.8 % (40-54); Hemoglobin 11.3 g/dL (13.0-16.5); Mean Corp Hgb Conc 32.5 g/dL (32-36); Mean Corpuscular Volume 89.9 fL (80-94); Mean Platelet Vol. 9.8 fl (6.2-12.0); Platelet Count 274 K/mm3 (150-450); RBC Distribution Width CV 14.9 % (11.6-14.6); RBC Distribution Width SD 48.7 fl (35.1-43.9); Red Blood Count 3.87 M/mm3 (4.6-6.2); White Blood Count 13.9 K/mm3 (4.4-11.0)
[2025-03-02 02:11] LABS: Vancomycin, Trough Level 21.3 ug/mL (5.0-15.0)
[2025-03-02 02:12] LABS: Anion Gap 12 (5-15); BUN 22 mg/dL (4-19); BUN/Creat Ratio 20.9 RATIO (10-20); Calcium,Total 8.4 mg/dL (7.6-11.0); Carbon Dioxide 18.4 mmol/L (21.0-32.0); Chloride 106 mmol/L (98-108); Estimated Creatinine Clearance 93.47 ml/min (50-250); Glucose 123 mg/dL (70-99); Potassium 4.3 mmol/L (3.3-5.1)
--- NOTE | 2025-03-02 02:20 | PCM.RX.CS ---
Consult Antibiotic Management Pharmacy has been consulted to manage selected antibiotic: Vancomycin Type of Intervention Type of Consult: Follow-up Labs Labs: Sodium 137 mmol/L (133-145) 03/02/25 01:35 Potassium 4.3 mmol/L (3.3-5.1) 03/02/25 01:35 Chloride 106 mmol/L (98-108) 03/02/25 01:35 Carbon Dioxide 18.4 mmol/L (21.0-32.0) L 03/02/25 01:35 Anion Gap 12 (5-15) 03/02/25 01:35 BUN 22 mg/dL (4-19) H 03/02/25 01:35 Creatinine 1.03 mg/dL (0.70-1.20) 03/02/25 01:35 Est GFR (MDRD) Non-Af 81 (>60) 03/02/25 01:35 BUN/Creatinine Ratio 20.9 RATIO (10-20) H 03/02/25 01:35 Glucose 123 mg/dL (70-99) H 03/02/25 01:35 Vancomycin Trough 21.3 ug/mL (5.0-15.0) H 03/02/25 01:35 Microbiology Microbiology: Microbiology 02/26/25 20:20 Urine, Clean Catch Urine Culture - Final Mixed Gram Positive Organisms 02/26/25 21:05 Blood Culture (Wb) - Anticubital Left Blood Culture - Preliminary No growth in 48 hours. 02/26/25 20:55 Blood Culture (Wb) - Left Wrist Blood Culture - Preliminary No growth in 48 hours. 02/28/25 20:15 Mucosa - Nasopharyngeal Coronavirus COVID-19 PCR - Final 02/28/25 18:20 Nasal Secretion MRSA (PCR) - Final 02/28/25 15:15 Urine Catheter - Schreiber Legionella Antigen - Final 02/28/25 15:15 Urine Catheter - Schreiber Streptococcus pneumoniae Antigen (M - Final 02/27/25 03:45 Mucosa - Nasopharyngeal Respiratory Panel (PCR) - Final Dosing Weight Weight used for dosin kg Estimated Creatinine Clearance Estimated Creatinine Clearance: 93 Goal Trough Goal Trough: 15-20 mcg/mL Pharmacy Plan for Drug Dosing Pharmacy Plan for Drug Dosing: Vancomycin trough level of 21.3, drawn 11hrs post-dose, was above the target range of 15-20. Will suspend current dosing and will draw a random vanco level in twelve hours to determine further orders. Pharmacy Service will continue to monitor and adjust dosing as required. Follow-Up Labs Follow-Up Labs: Trough: Vancomycin (random) Date/Time Labs Ordered Labs to be done on [date and time ordered]: 03/02/25 @1330 (random)
[2025-03-02] MEDS: 0.9% Saline Lock 10 ML Syringe IV (02:46)
[2025-03-02] MEDS: metroNIDAZOLE 500 MG/100 ML BAG 100 MG IV ×3 (05:09→22:26)
[2025-03-02] MEDS: Budesonide Respules 0.5 MG/2 ML AMPUL.NEB. INHALATION ×2 (07:18→20:23)
--- NOTE | 2025-03-02 08:53 | PN.CC_ITS ---
Objective Data Objective Data Vital Signs: Vital Signs Last response 3 Temperature 36.5 C L 03/02/25 08:00 Temperature Source Core 03/02/25 08:00 Pulse Rate 70 03/02/25 08:00 Pulse Strength Normal (2+) 03/01/25 10:00 Respiratory Rate 26 H 03/02/25 08:00 Respiratory Effort Normal, Non-Labored 03/02/25 08:00 Respiratory Depth Normal 03/02/25 08:00 Respiratory Pattern Tachypnea 03/02/25 08:00 Blood Pressure 150/89 H 03/02/25 08:00 Blood Pressure Mean 109 03/02/25 08:00 Blood Pressure Source Monitor 03/02/25 08:00 Blood Pressure Position Semi-Fowlers 03/02/25 08:00 Blood Pressure Location Right Forearm 03/02/25 08:00 Pulse Ox 97 03/02/25 08:00 Oxygen Delivery Method Airvo 03/02/25 08:00 Oxygen Flow Rate (L/min) 40 03/02/25 08:00 Fraction of Inspired Oxygen (FIO2) 40 03/02/25 08:00 I&O: I&O Last 24 Hours 3 03/01/25 03/01/25 03/02/25 11:59 23:59 11:59 Intake Total 2832.09 / 3822.09 990 / 3822.09 100 / 100 Output Total 1250 / 2050 800 / 2050 775 / 775 Balance 1582.09 / 1772.09 190 / 1772.09 -675 / -675 I&O: Total Stay 3 02/26/25 20:48 thru 03/02/25 06:09 Intake Total 29731.20 Output Total 4203 Balance 6735.20 Current Meds Ordered / Administered: Current meds ordered / Administered 3 Generic Name Dose Route Start Last Admin Trade Name Freq PRN Reason Stop Dose Admin Acetaminophen 650 mg 02/28/25 11:30 03/01/25 20:27 Acetaminophen 650 Mg Suppository RC 650 mg Q4H PRN PRN Administration FEVER Acetaminophen 650 mg 03/01/25 01:35 03/01/25 05:49 Acetaminophen 325 Mg Tablet PO 650 mg Q4H PRN PRN Administration Pain 1-10 or Fever Albuterol/Ipratropium 3 ml 02/27/25 02:02 02/28/25 03:08 Ipratropium/Albuterol Sulfate 3 Ml Ampul.Neb INHALATION 3 ml Q4H PRN PRN Administration wheezing Albuterol/Ipratropium 3 ml 02/27/25 02:30 03/02/25 07:18 Ipratropium/Albuterol Sulfate 3 Ml Ampul.Neb INHALATION 3 ml Q6HWA.RT GABBY Administration Atorvastatin Calcium 80 mg 02/27/25 22:00 03/01/25 19:37 Atorvastatin Calcium 80 Mg Tablet PO Not Given QHS GABBY Budesonide 0.5 mg 02/28/25 18:15 03/02/25 07:18 Budesonide Respules 0.5 Mg/2 Ml Ampul.Neb. INHALATION 0.5 mg BID.RT GABBY Administration Chlorhexidine Gluconate 1 each 02/28/25 10:00 03/01/25 05:45 Chlorhexidine Gluc 2% Cloth 1 Each [place] TOPICAL 1 each DAILY GABBY Administration Clopidogrel Bisulfate 75 mg 02/27/25 10:00 03/01/25 10:47 Clopidogrel Bisulfate 75 Mg Tablet PO Not Given DAILY GABBY Dicyclomine HCl 20 mg 02/27/25 02:02 Dicyclomine 10 Mg Capsule PO Q6H PRN PRN abdominal discomfort Enoxaparin Sodium 40 mg 02/27/25 10:00 03/01/25 08:34 Enoxaparin 40 Mg/0.4 Ml Syringe SC 40 mg DAILY GABBY Administration Folic Acid 1 mg 02/27/25 08:00 03/02/25 07:46 Folic Acid 1 Mg Tablet PO Not Given BREAKFAST GABBY Gabapentin 300 mg 02/27/25 02:02 02/27/25 12:15 Gabapentin 300 Mg Capsule PO 300 mg Q8H PRN PRN Administration moderate to severe anxiety Hydroxyzine Pamoate 50 mg 02/27/25 02:02 02/28/25 21:19 Hydroxyzine Jodee 25 Mg Capsule PO 50 mg Q4H PRN PRN Administration mild anxiety Vancomycin IV-PHARMACY TO DOSE 500 mls @ 250 mls/hr 02/27/25 02:02 1 each/ Sodium Chloride IV X1 PRN Rx to Dose Protocol Cefepime HCl 2 gm/ Sodium 100 mls @ 200 mls/hr 02/27/25 10:00 03/01/25 21:13 Chloride IV Infused Q12 GABBY Infusion Sodium Chloride 250 mls @ 15 mls/hr 02/27/25 02:04 IV .[id number] PRN Saline Flush Sodium Chloride 250 mls @ 15 mls/hr 02/27/25 02:04 IV .[id number] PRN Additional IVPB Infusion Metronidazole 500 mg in 100 mls @ 100 mls/hr 02/28/25 02:45 03/02/25 06:09 Flagyl IV Infused Q8 GABBY Infusion Pantoprazole Sodium 40 mg/ 100 mls @ 300 mls/hr 02/28/25 10:00 03/01/25 11:01 Sodium Chloride IV Infused Q24 GABBY Infusion Dexmedetomidine HCl 400 mcg/ 100 mls @ 15.625 mls/hr 02/28/25 10:30 03/02/25 06:13 Sodium Chloride CONT INF Not Given .Q6H24M GABBY Protocol 0.5 MCG/KG/HR Doxycycline Hyclate 100 mg/ 250 mls @ 250 mls/hr 02/28/25 16:00 03/01/25 23:37 Sodium Chloride IV Infused Q12 GABBY Infusion Thiamine HCl 200 mg/ Sodium 52 mls @ 200 mls/hr 02/28/25 16:00 03/01/25 11:01 Chloride IV Infused DAILY GABBY Infusion Loperamide HCl 2 mg 02/27/25 02:02 Loperamide 2 Mg Capsule PO Q4H PRN PRN DIARRHEA/LOOSE STOOLS Lorazepam 1 mg 03/01/25 01:11 03/02/25 02:46 Lorazepam 2 Mg/Ml Syringe IV 1 mg Q4H PRN PRN Administration Alcohol Withdrawal Methylprednisolone Sodium Succinate 40 mg 03/01/25 10:00 03/01/25 21:19 Methylprednisolone Sod Succ 40 Mg/Ml Vial IV 40 mg Q12 GABBY Administration Montelukast Sodium 10 mg 02/27/25 10:00 03/01/25 10:47 Montelukast 10 Mg Tablet PO Not Given DAILY GABBY Multivitamins 1 tablet 03/01/25 12:00 03/01/25 11:01 Multivitamins,Therapeutic Tablet PO Not Given LUNCH GABBY Nicotine 14 mg 02/27/25 02:02 03/01/25 08:35 Nicotine 14 Mg Patch TD 14 mg DAILY GABBY Administration Ondansetron HCl 8 mg 02/27/25 02:02 Ondansetron 8 Mg Tablet PO Q8H PRN PRN NAUSEA Phenobarbital 65 mg 02/28/25 21:00 03/02/25 05:09 Phenobarbital Sodium 65 Mg/Ml Vial IV 03/03/25 16:59 65 mg Q6H GABBY Administration Taper Sodium Chloride 10 - 40 ml 02/27/25 02:04 03/02/25 02:46 0.9% Saline Lock 10 Ml Syringe IV 10 ml UD PRN Administration SALINE FLUSH Trazodone HCl 100 mg 02/27/25 02:02 Trazodone 100 Mg Tablet PO QHS PRN PRN INSOMNIA Vancomycin Protocol 1 lab 03/02/25 12:30 Vancomycin Trough/Random Due MC 03/02/25 14:30 DAILY GABBY Lab / Micro Data 03/02/25 01:35 03/02/25 01:35 Labs: Laboratory Results - last 24 hr 02/27/25 03:15: Lyme Total Antibody Negative 03/01/25 04:36: Total Bilirubin 0.47, Direct Bilirubin 0.24, AST 77 H, ALT 48 H, Alkaline Phosphatase 95, Total Protein 6.3, Albumin 3.2 L, Globulin 3.1, P rocalcitonin 1.22 H 03/02/25 01:35: WBC 13.9 H, RBC 3.87 L, Hgb 11.3 L, Hct 34.8 L, MCV 89.9, MCH 29.2, MCHC 32.5, RDW Std Deviation 48.7 H, RDW Coeff of Carlos 14.9 H, Plt Count 274, MPV 9.8, Sodium 137, Potassium 4.3, Chloride 106, Carbon Dioxide 18.4 L, Anion Gap 12, BUN 22 H, Creatinine 1.03, Estim Creat Clear Calc 93.47, Est GFR (MDRD) Non-Af 81, BUN/Creatinine Ratio 20.9 H, Glucose 123 H, Calcium 8.4, V ancomycin Trough 21.3 H Micro: Microbiology 02/26/25 20:20 Urine, Clean Catch Urine Culture - Final Mixed Gram Positive Organisms 02/26/25 21:05 Blood Culture (Wb) - Anticubital Left Blood Culture - Preliminary No growth in 48 hours. 02/26/25 20:55 Blood Culture (Wb) - Left Wrist Blood Culture - Preliminary No growth in 48 hours. ABG Data ABG results: ABG 03/01/25 11:06 Specimen Type ART Sample Site R Radial pH 7.40 Bicarbonate Actual 22.8 Total CO2 24 Base Excess -2 O2 Saturation 95 O2 % 45.0 ABG pCO2 36.7 ABG pO2 77 Pardeep Test Positive O2 Delivery Device Not entered Vent Mode Not entered Clinical Comments airvo Assessment and Plan . Assessment and plan: Subjective: no acute events o/n. Fevers improved this AM. More alert/calm today, can answer some simple questions now. Still with mild confusion Physical Exam: Gen - NAD, morbidly obese HEENT - MMM. Sclera anicteric Resp - +wheezing. Tachypneic CV - RRR. No m/g/r Abd - Soft, NT, ND Ext - No c/c/e. Skin - No rashes? Neuro - Drowsy but much more arousable compared to earlier. Can answer some simple questions, still with mild confusion I have reviewed the pertinent vital sign, laboratory, and imaging data. ASSESSMENT: # Acute hypoxic respiratory failure # PNA - suspected aspiration # Acute encephalopathy - concern for EtOH withdrawal given heavy EtOH abuse. Last drink 02/25. CT/MR brain without acute infarct. Likely component of metabolic/septic encephalopathy as well # h/o CVA - noted on MR brain. ?chronic gliosis vs demyelination as well # Fever # Asthma/COPD exacerbation # Hyponatremia # Anemia # HTN # Obesity # GERD # h/o tobacco use PLAN: -Cont HHFNC 40%/40L. Wean to keep sats ~90-92% -Cont vanc/cefepime/flagyl/doxy, f/u Cx. ID following. MRSA nares, urine strep/legionella, viral panel neg. May be able to stop vanc if continued improvement/defervescence -Monitor mental status. Cont PRN ativan per CIWA score, PRN precedex. Cont phenobarbital taper but hold for excessive sedation. Ammonia, TSH wnl. UDS neg. LP deferred for now as pt seems to be improving -CTA chest with RLL PNA, no large PE noted. CT A/P without acute pathology -Monitor for worsening R pleural effusion -Budesonide, duonebs, IV solumedrol -TTE w/ LVEF 50%, normal RV. -PRN diuresis to maintain euvolvemia -IV thiamine, MVI -ST eval, aspiration precautions FEN/GI: Swallow eval Proph DVT/GI: Lovenox, protonix Critical Care Time: 50 mins The entirety of this encounter was done via telemedicine using both audio and video. Consent was unable to be obtained for the telemedicine encounter due to the patient's mental status.
[2025-03-02] MEDS: Thiamine Hydrochloride 200 MG in 0.9% Normal Saline (50mL Bag) 50 ML IV (09:40)
[2025-03-02] MEDS: CHLORHEXIDINE GLUC 2% CLOTH 1 EACH TOWELETTE TOPICAL (09:45)
--- NOTE | 2025-03-02 10:23 | ST.MBS ---
Modified Barium Swallow Patient Information Study Date: 03/02/25 Study Time: 10:23 Direct Billable Minutes: 116 Total Minutes procedure & reportin Diagnosis: Aspiration PNA J18.9 Referring Physician: Armani Tolbert Reason for Referral: Assess swallow function, assess risk for aspiration, and determine recommendations for least restrictive diet textures and compensatory strategies to improve safety of swallow. Medical History: Per physician H&P, ?past medical history of essential hypertension; on lisinopril, hyperlipidemia; on atorvastatin, obesity; with BMI of 38.7 this admission, history of tobacco abuse; with subsequent asthma/COPD on umeclidinium-vilanterol, ipratropium-albuterol q. 4 hours prn plus montelukast, history of EtOH abuse; with patient admitted to drinking ~8-9 beers daily on folate and thiamine supplementation, GERD; on esomeprazole and OA; with spinal stenosis of the lumbar region (without claudication).? Patient presented to [facility] ED 02/27/2025 w/ AMS. Per , pt fell day before admission. He wasn?t acting normally beginning the evening of February 26, 2025. He reported complaints of knee pain at home, as well. activated EMS due to confusion. Pt had fever and cough w/ CT scan of the chest revealing RLL Pneumonia. 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 After further work up, he was admitted to ICU for ongoing care. He was referred for ST dysphagia evaluation following aspiration episode with watermelon and was made strict NPO until evaluation. BSE recommended NPO w/ sips and chips; however, respiratory status worsened 03/01/2025 and he was made strict NPO. RESEARCH GROUP DIRECTOR re-assessed pt at bedside today and recommended MBSS today if pt was able to be weaned to nasal cannula from Airvo. Pt was weaned to nasal cannula and cleared by physician for participation in MBSS. Current Diet Ordered: NPO, ok for meds whole in Dentition: Natural Teeth and Missing Teeth Mental Status: Impaired (Confusion) Respiratory Status: Oxygenating on 4L/M nasal cannula (6L via NC) Penetration-Aspiration Scale Penetration-Aspiration Scale: OBJECTIVE ASSESSMENT OF SWALLOW FUNCTION (QUANTITATIVE ? PER TRIAL): PENETRATION / ASPIRATION SCALE (GILL): 1 = does not enter airway 2 = enters airway/above vocal folds/ejected 3 = enters airway/above vocal folds/not ejected 4 = enters airway/contacts vocal folds/ejected 5 = enters airway/contacts vocal folds/not ejected 6 = enters airway/below vocal folds/ejected 7 = enters airway/below vocal folds/not ejected despite effort 8 = enters airway/below vocal folds/no effort VIDEOFLOROSCOPIC SCALE SCORE (GILL): Grade I = aspiration of material that has penetrated into the laryngeal vestibule, intact cough reflex Grade II = aspiration < 10 % of the bolus, intact cough reflex Grade III = aspiration of < 10 % of the bolus, reduced cough reflex or aspiration of > 10 % of the bolus, intact cough reflex Grade IV = aspiration of > 10 % of the bolus, reduced cough reflex Penetration-Aspiration Scale Score Thin Liquid via teaspoon: Result: 1= does not enter airway Thin Liquid via teaspoon Trial 2: Result: 1= does not enter airway Thin Liquid via small single sip: cup: Result: 2= enter airway/above vocal folds/ejected [place] Thick Liquid via sequential sips: cup: Result: 7= enters airways/below vocal folds/not ejected despite effort Comment: Attempted esophageal screen; however, unable to clearly view esophagus due to pt's body habitus. Pudding via teaspoon: Result: 1= does not enter airway 1/2 Cookie: Result: 1= does not enter airway Comment: Per RN, Keith, pt's SpO2 dropped from 96% to 87% while chewing. Once chewing stopped, SpO2 returned to mid 90s. Thin Liquid via single sip: straw: Result: 2= enter airway/above vocal folds/ejected Comment: Large sip Thin Liquid via single sip: straw Trial 2: Result: 5= enters airways/contacts vocal folds/not ejected Comment: Mod-max verbal cues for small sip Thin Liquid via teaspoon Trial 3: Result: 2= enter airway/above vocal folds/ejected Thin Liquid via teaspoon Trial 4: Result: 1= does not enter airway Oral Phase Labial Seal: Interlabial escape, no progression to anterior lip Tongue Control During Bolus Hold: Posterior escape of greater than half of bolus Bolus Preparation/Mastication: Disorganized chewing/mashing with solid pieces of bolus unchewed (Posterior loss to the pyriform sinuses) Bolus Transport/Lingual Motion: Slowed tongue motion Oral Residue: Residue collection on oral structures Pharyngeal Phase Initiation of Pharyngeal Swallow: Bolus head in pyriforms Soft Palate Elevation: Trace column of contrast/air between soft palate and pharyngeal wall Laryngeal Elevation: Partial superior movement thyroid cart/partial apprx aryt-epig petiole Anterior Hyoid Excursion: Partial anterior movement Epiglottic Movement: Complete inversion Laryngeal Vestibule Closure at Height of Swallow: Incomplete; narrow column of air/contrast in laryngeal vestibule Pharyngeal Stripping Wave: Present - complete Tongue Base Retraction: Narrow column of contrast between tongue base & post. pharyngeal wall Pharyngeal Residue: Trace residue within or on pharyngeal structures Diagnosis/Impression Diagnosis: Moderate oropharyngeal dysphagia R13.12 MBS Impressions: Keith CHAUDHARY, present for MBSS. RESEARCH GROUP DIRECTOR could not definitively rule out aspiration for any of the above mentioned trials due to pt's body habitus. Additionally, RESEARCH GROUP DIRECTOR was unable to score UES opening/duration or complete esophageal screens due to pt's body habitus. The oral phase is primarily marked by... -Decreased bolus control w/ premature posterior loss of cookie and liquids to the pyriform sinuses prior to swallow onset. Mildly thick liquids spilled to the laryngeal vestibule prior to swallow onset resulting in aspiration. -Slowed tongue motion for A-P transport. -Disorganized mastication of cookie. Of note, pt's SpO2 dropped from 96% to 87% while chewing. Once chewing stopped, SpO2 returned to mid 90s. NEENA, Keith, and RESEARCH GROUP DIRECTOR suspect desaturation secondary to exertion of chewing. The pharyngeal phase is primarily marked by... -Delayed swallow onset. -Decreased airway closure due to decreased laryngeal elevation and anterior hyoid excursion. -Aspiration of mildly thick liquids via cup (self-administered) and deep laryngeal penetration to the vocal folds of thin liquids via single straw sip w/ strong reflexive cough response in both instances. Recommendations Diet: Puree Textures and Thin Liquids Compensatory Strategies: Small Bites, Liquid by Teaspoon Only, Slow Rate, Sitting upright and Remain sitting upright for 30 minutes after PO intake Supervision: Total Feed (By staff due to impulsivity and desaturation w/ minimal exertion) Recommend Repeat Modified Barium Swallow: TBD Need for Skilled Speech Therapy Services: Yes Comment: -Train the patient, family, and staff in use of strategies to decrease risk for aspiration. -Ongoing assessment of diet tolerance of recommended textures. Monitor respiratory status closely. As respiratory status improves, would recommend trialing small sips of thin water via cup and soft solids w/ treating RESEARCH GROUP DIRECTOR to consider the patient for further diet advancement. Treating RESEARCH GROUP DIRECTOR is ok to advance the patient at bedside if tolerating these trials well as he did present w/ a strong reflexive cough to aspiration and deep laryngeal penetration during this MBSS. -Train the patient in oropharyngeal exercise program to improve bolus control, swallow onset, and airway closure (lingual resistance, Axel, effortful, CTAR). Education Completed: 1. Described result of evaluation. and 7. Pt requires further education on strategies & risks. Comment: RESEARCH GROUP DIRECTOR educated pt, RN, and DIGITAL CONTENT SPECIALIST in results and recommendations of the MBSS and posted recommendations in the patient's room. RESEARCH GROUP DIRECTOR asked RNJennifer, to please make the patient NPO is worsening respiratory status after diet has been initiated. Status Active ST Patient: Active Contact Information [facility] Speech Therapy:: Jennifer Rodriguez M.A. [facility]-RESEARCH GROUP DIRECTOR? Speech-Language Pathologist?? [facility] [address] [place] [address]? [email or web address]?? [phone]
--- NOTE | 2025-03-02 10:58 | PCM.PN.HOSP ---
Reason for Visit Chief Complaint: AMS. Subjective Subjective Saw patient at bedside this morning. Patient more awake and alert today compared to yesterday. Has been off Precedex since yesterday evening. Did have mild belly breathing noted again this morning. However, has been satting in the high 90s on Airvo at low settings. He does report cough but denies any fevers or chills. Denies any other acute concerns this morning. Objective Data Objective Data Vital Signs: Vital Signs Temp Pulse Resp BP Pulse Ox O2 Del Method O2 Flow Rate 97.7 F L 70 26 H 150/89 H 97 Airvo 40 03/02/25 08:00 03/02/25 08:00 03/02/25 08:00 03/02/25 08:00 03/02/25 08:00 03/02/25 08:00 03/02/25 08:00 FiO2 40 03/02/25 08:00 Oxygen Flow Rate (L/min) 40 Oxygen Delivery Method Airvo Weight: 124.2 kg Body Mass Index (BMI) 40.5 Intake & Output: Intake and Output for Last 24 Hours 02/28/25 03/01/25 03/02/25 23:59 23:59 23:59 Intake Total 2166.11 / 2173.04 3822.09 / 3822.09 100 / 100 Output Total 1375 / 1375 2049 / 2049 775 / 775 Balance 791.11 / 798.04 1772.09 / 1772.09 -675 / -675 Lab / Micro Data 03/02/25 01:35 03/02/25 01:35 Labs: Laboratory Results - last 24 hr 02/27/25 03:15: Lyme Total Antibody Negative 03/01/25 04:36: Procalcitonin 1.22 H 03/02/25 01:35: WBC 13.9 H, RBC 3.87 L, Hgb 11.3 L, Hct 34.8 L, MCV 89.9, MCH 29.2, MCHC 32.5, RDW Std Deviation 48.7 H, RDW Coeff of Carlos 14.9 H, Plt Count 274, MPV 9.8, Sodium 137, Potassium 4.3, Chloride 106, Carbon Dioxide 18.4 L, Anion Gap 12, BUN 22 H, Creatinine 1.03, Estim Creat Clear Calc 93.47, Est GFR (MDRD) Non-Af 81, BUN/Creatinine Ratio 20.9 H, Glucose 123 H, Calcium 8.4, Vancomycin Trough 21.3 H Micro: Microbiology 02/26/25 20:20 Urine, Clean Catch Urine Culture - Final Mixed Gram Positive Organisms 02/26/25 21:05 Blood Culture (Wb) - Anticubital Left Blood Culture - Preliminary No growth in 48 hours. 02/26/25 20:55 Blood Culture (Wb) - Left Wrist Blood Culture - Preliminary No growth in 48 hours. 02/28/25 20:15 Mucosa - Nasopharyngeal Coronavirus COVID-19 PCR - Final 02/28/25 18:20 Nasal Secretion MRSA (PCR) - Final 02/28/25 15:15 Urine Catheter - Schreiber Legionella Antigen - Final 02/28/25 15:15 Urine Catheter - Schreiber Streptococcus pneumoniae Antigen (M - Final 02/27/25 03:45 Mucosa - Nasopharyngeal Respiratory Panel (PCR) - Final ABG Data ABG results: ABG 03/01/25 11:06 Specimen Type ART Sample Site R Radial pH 7.40 Bicarbonate Actual 22.8 Total CO2 24 Base Excess -2 O2 Saturation 95 O2 % 45.0 ABG pCO2 36.7 ABG pO2 77 Pardeep Test Positive O2 Delivery Device Not entered Vent Mode Not entered Clinical Comments airvo Physical Exam Const alert and no apparent distress Constitutional Narrative: Elderly male, class III obesity, mild somnolence but more awake and alert appearing compared to yesterday, answering questions appropriately, in no acute distress. General Appearance: cooperative and comfortable Orientation / Consciousness: lethargic HEENT normocephalic, head/scalp atraumatic, hearing grossly normal bilaterally, nasal mucous membranes and turbinates normal and moist oral mucous membranes Eyes PERRL, EOMs intact bilaterally and conjunctivae normal Neck full ROM Chest inspection of chest normal Resp Resp Narrative: Mild increased work of breathing with use of accessory abdominal muscles noted, improving. Crackles noted in bilateral lower lungs, worse on right, similar to yesterday. No wheezing noted. Cardio regular rate, regular rhythm, no murmurs and peripheral pulses 2+ throughout GI normal to inspection, nondistended, normoactive bowel sounds, soft to palpation, non-tender and non-distended Back/Spine normal ROM Extremity Extremity Narrative: Trace lower extremity edema noted. Skin no rashes or lesions noted Assessment & Plan Assessment/Plan (1) Acute hypoxic respiratory failure: (2) Aspiration pneumonia: QUALIFIERS: Aspiration pneumonia type: unspecified Laterality: right Lung location: lower lobe of lung Qualified Code(s): J69.0 - Pneumonitis due to inhalation of food and vomit (3) Acute metabolic encephalopathy: PLAN: Plan Patient is a 64-year-old male who presented to [facility] ED on 02/26/2025 with altered mentation. 1. Acute hypoxic respiratory failure due to aspiration pneumonia versus pneumonitis and mild HFpEF exacerbation ? Electric [employer] and ID following. Not on home oxygen. Present with cough, fevers to 103F and leukocytosis. CT chest showed right lower lobe consolidative airspace disease concerning for aspiration pneumonia. Had witnessed aspiration event on volleyball commentator of hospital day 2 requiring transfer to the ICU. CTA chest on 02/28 showed no PE, did show substantially worse right lower lobe pneumonia with reactive lymphadenopathy. BNP 1400 on 02/28 concerning for new onset heart failure. Echo showed EF 50%, mild concentric LV hypertrophy, no other concerning findings. BNP worsened to 2900 on 03/01 despite good diuresis on IV Lasix; suspect this is secondary to elevated pulmonary pressures in setting of severe aspiration pneumonia/pneumonitis. Per ID, suspect fevers are multifactorial from pneumonia as well as alcohol withdrawal as below. Infectious workup negative to this point. Initially on broad-spectrum antibiotics with IV vancomycin, cefepime, doxycycline and Flagyl. Vancomycin and doxycycline discontinued on 03/02, continue cefepime and Flagyl. Weaning oxygen as able; currently on 4 L nasal cannula at rest. Holding on further diuresis for now, can consider spot diuresis as needed. Continue scheduled DuoNebs. Speech therapy following for dysphagia as below. 2. Acute alcohol withdrawal with concern for DTs ? Reportedly drinks 8-9 beers daily. Alcohol level negative on admit. Per family, has gone through withdrawal at home in the past but has never been hospitalized for this. Notably was confused on admission but became significantly more confused and agitated shortly after arriving to the ICU on hospital day 2. Initiated on phenobarbital taper with some improvement in symptoms but not resolution of symptoms. Required Precedex taper for agitation for time; weaned off Precedex by evening of 03/01. Continue phenobarbital taper and other as needed medications per alcohol withdrawal order set. 3. Acute encephalopathy, improving ? Suspected multifactorial due to both respiratory failure due to pneumonia as well as alcohol withdrawal as above. Weaned off Precedex drip on evening of 03/01 as above. Mental status improving, alert and answering questions with short appropriate responses on 03/02. Continue treatment as above. Avoiding further steady medications as able. 4. Hyponatremia, improving ? Sodium 126 on admit. Suspect due to both beer potomania and volume overload. Improved with IV diuresis, most recent sodium 134 on 03/01. Continue to monitor sodium level daily. 5. Dysphagia ? Speech therapy following. MBSS completed on 03/02, showed moderate oropharyngeal dysphagia. Per speech, plan is for pur?ed textures and thin liquid diet. However, speech also noted that if patient has worsening respiratory status, nursing staff is to make the patient n.p.o. to avoid further aspiration events. Chronic medical conditions: ? Class II obesity: BMI 39 on admit. Complicates hospital course and care. ? Nicotine dependence: Nicotine patch in place. Cessation advised. ? Hypertension/hyperlipidemia: Holding home lisinopril given infection as above. Continue home statin. ? GERD: Continue home PPI. ? History of CVA: Continue home Plavix. ? Asthma/COPD: Not in acute exacerbation. Continue home inhalers as well as scheduled DuoNebs as above. DVT prophylaxis: Lovenox CODE STATUS: Full code, verified Expected disposition: TBD Total clinical time spent by myself addressing the patient's medical issues, reviewing all the data, and collaborating with patient's care team: 35 minutes. Charges/Coding Visit Charges Inpatient E&M: 75924 Subs Hosp L2
[2025-03-02] MEDS: Doxycycline 100 MG in 0.9% Normal Saline (250mL Bag) 250 ML 250 MG IV (11:44)
--- NOTE | 2025-03-02 12:43 | PCM.PN.ID ---
Physical Exam Narrative Feeling better, fever improved, mild cough and dyspnea Const alert and no apparent distress General Appearance: cooperative Resp Auscultation: rhonchi and wheezes Cardio regular rate and regular rhythm GI soft to palpation, non-tender and non-distended Skin no rashes or lesions noted ID ID: Route of nutrition/ use of supplements: [] Nutritional Intake: [] IV Site: [] Schreiber Catheter: [] Assessment & Plan Assessment/Plan (1) Sepsis: QUALIFIERS: Sepsis type: sepsis due to unspecified organism Sepsis acute organ dysfunction status: with acute organ dysfunction Severe sepsis acute organ dysfunction type: encephalopathy Severe sepsis shock status: without septic shock Qualified Code(s): A41.9 - Sepsis, unspecified organism; R65.20 - Severe sepsis without septic shock; G93.41 - Metabolic encephalopathy PLAN: Infectious workup neg so far besides for presumed aspiration pneumonia. Lyme neg. Etoh withdrawal could be playing a part in his temps. Fever curve much improved, mental status better. Will stop doxy and vanc. Cont cefepime and flagyl for now. Will follow (2) Aspiration pneumonia: QUALIFIERS: Aspiration pneumonia type: unspecified Laterality: right Lung location: lower lobe of lung Qualified Code(s): J69.0 - Pneumonitis due to inhalation of food and vomit (3) Acute metabolic encephalopathy:
[2025-03-02] MEDS: Acetylcysteine 800 MG/4 ML VIAL.NEB. INHALATION ×2 (13:06→20:23)
[2025-03-02] MEDS: Cefepime HCl 2 GM in 0.9% Normal Saline (100mL MB+) 100 ML IV ×2 (13:11→22:26)
[2025-03-02] MEDS: Pantoprazole Sodium 40 MG in 0.9% Normal Saline (100mL MB+) 100 ML 300 MG IV (14:06)
[2025-03-02] MEDS: Lactobacillis Acidophilus 1 CAP PO ×2 (14:07→22:27)
[2025-03-03] VITALS (21 sets, daily range): BP systolic 100–150; BP diastolic 62–98; PULSE 66–93; RESP 17–29; TEMP 36.4–37.5; O2SAT 91–100; BMI 40.1
[2025-03-03] MEDS: metroNIDAZOLE 500 MG/100 ML BAG 100 MG IV ×3 (06:30→20:49)
[2025-03-03 06:34] LABS: Hematocrit 33.9 % (40-54); Hemoglobin 11.1 g/dL (13.0-16.5); Mean Corp Hgb Conc 32.7 g/dL (32-36); Mean Corpuscular Volume 88.7 fL (80-94); Mean Platelet Vol. 10.0 fl (6.2-12.0); Platelet Count 318 K/mm3 (150-450); RBC Distribution Width CV 14.9 % (11.6-14.6); RBC Distribution Width SD 48.5 fl (35.1-43.9); Red Blood Count 3.82 M/mm3 (4.6-6.2); White Blood Count 10.7 K/mm3 (4.4-11.0)
[2025-03-03] MEDS: Budesonide Respules 0.5 MG/2 ML AMPUL.NEB. INHALATION ×2 (06:58→19:37)
[2025-03-03] MEDS: Acetylcysteine 800 MG/4 ML VIAL.NEB. INHALATION (06:58)
[2025-03-03 07:53] LABS: Anion Gap 9 (5-15); BUN 26 mg/dL (4-19); BUN/Creat Ratio 29.9 RATIO (10-20); Calcium,Total 8.6 mg/dL (7.6-11.0); Carbon Dioxide 22.7 mmol/L (21.0-32.0); Chloride 111 mmol/L (98-108); Estimated Creatinine Clearance 111.12 ml/min (50-250); Glucose 134 mg/dL (70-99); Potassium 4.2 mmol/L (3.3-5.1)
[2025-03-03] MEDS: Lactobacillis Acidophilus 1 CAP PO ×4 (09:00→20:48)
[2025-03-03] MEDS: Pantoprazole Sodium 40 MG in 0.9% Normal Saline (100mL MB+) 100 ML 300 MG IV (09:01)
[2025-03-03] MEDS: CHLORHEXIDINE GLUC 2% CLOTH 1 EACH TOWELETTE TOPICAL (09:26)
[2025-03-03] MEDS: Cefepime HCl 2 GM in 0.9% Normal Saline (100mL MB+) 100 ML IV ×2 (09:28→20:48)
[2025-03-03] MEDS: Thiamine Hydrochloride 200 MG in 0.9% Normal Saline (50mL Bag) 50 ML IV (11:22)
--- NOTE | 2025-03-03 17:49 | PN.CC_ITS ---
Objective Data Objective Data Vital Signs: Vital Signs Last response 3 Temperature 36.9 C 03/03/25 14:30 Temperature Source Temporal 03/03/25 14:30 Pulse Rate 71 03/03/25 16:00 Pulse Strength Normal (2+) 03/02/25 22:00 Respiratory Rate 17 03/03/25 14:30 Respiratory Effort Normal, Non-Labored 03/03/25 04:00 Respiratory Depth Normal 03/03/25 04:00 Respiratory Pattern Tachypnea 03/03/25 04:00 Blood Pressure 150/80 H 03/03/25 14:30 Blood Pressure Mean 103 03/03/25 14:30 Blood Pressure Source Monitor 03/03/25 14:30 Blood Pressure Position Semi-Fowlers 03/03/25 14:30 Blood Pressure Location Left Arm 03/03/25 14:30 Pulse Ox 95 03/03/25 14:30 Oxygen Delivery Method Room Air 03/03/25 14:30 Oxygen Flow Rate (L/min) 2 03/03/25 10:00 Fraction of Inspired Oxygen (FIO2) 40 03/02/25 08:00 I&O: I&O Last 24 Hours 3 03/02/25 03/03/25 03/03/25 23:59 11:59 23:59 Intake Total 802 / 902 472 / 572 100 / 572 Output Total 1475 / 2250 750 / 750 Balance -673 / -1348 -278 / -178 100 / -178 I&O: Total Stay 3 02/26/25 20:48 thru 03/03/25 15:42 Intake Total 84249.20 Output Total 6428 Balance 5884.20 Current Meds Ordered / Administered: Current meds ordered / Administered 3 Generic Name Dose Route Start Last Admin Trade Name Freq PRN Reason Stop Dose Admin Acetaminophen 650 mg 03/01/25 01:35 03/01/25 05:49 Acetaminophen 325 Mg Tablet PO 650 mg Q4H PRN PRN Administration Pain 1-10 or Fever Albuterol/Ipratropium 3 ml 02/27/25 02:02 02/28/25 03:08 Ipratropium/Albuterol Sulfate 3 Ml Ampul.Neb INHALATION 3 ml Q4H PRN PRN Administration wheezing Albuterol/Ipratropium 3 ml 02/27/25 02:30 03/03/25 12:48 Ipratropium/Albuterol Sulfate 3 Ml Ampul.Neb INHALATION 3 ml Q6HWA.RT GABBY Administration Atorvastatin Calcium 80 mg 02/27/25 22:00 03/02/25 22:25 Atorvastatin Calcium 80 Mg Tablet PO 80 mg QHS GABBY Administration Budesonide 0.5 mg 02/28/25 18:15 03/03/25 06:58 Budesonide Respules 0.5 Mg/2 Ml Ampul.Neb. INHALATION 0.5 mg BID.RT GABBY Administration Chlorhexidine Gluconate 1 each 02/28/25 10:00 03/03/25 09:26 Chlorhexidine Gluc 2% Cloth 1 Each Towelette TOPICAL 1 each DAILY GABBY Administration Clopidogrel Bisulfate 75 mg 02/27/25 10:00 03/03/25 09:01 Clopidogrel Bisulfate 75 Mg Tablet PO 75 mg DAILY GABBY Administration Enoxaparin Sodium 40 mg 02/27/25 10:00 03/03/25 09:00 Enoxaparin 40 Mg/0.4 Ml Syringe SC 40 mg DAILY GABBY Administration Folic Acid 1 mg 02/27/25 08:00 03/03/25 09:00 Folic Acid 1 Mg Tablet PO 1 mg BREAKFAST GABBY Administration Hydroxyzine Pamoate 50 mg 02/27/25 02:02 02/28/25 21:19 Hydroxyzine Jodee 25 Mg Capsule PO 50 mg Q4H PRN PRN Administration mild anxiety Cefepime HCl 2 gm/ Sodium 100 mls @ 200 mls/hr 02/27/25 10:00 03/03/25 09:58 Chloride IV Infused Q12 GABBY Infusion Sodium Chloride 250 mls @ 15 mls/hr 02/27/25 02:04 IV .[id number] PRN Saline Flush Sodium Chloride 250 mls @ 15 mls/hr 02/27/25 02:04 IV .[id number] PRN Additional IVPB Infusion Metronidazole 500 mg in 100 mls @ 100 mls/hr 02/28/25 02:45 03/03/25 15:42 Flagyl IV Infused Q8 GABBY Infusion Pantoprazole Sodium 40 mg/ 100 mls @ 300 mls/hr 02/28/25 10:00 03/03/25 09:21 Sodium Chloride IV Infused Q24 GABBY Infusion Thiamine HCl 200 mg/ Sodium 52 mls @ 200 mls/hr 02/28/25 16:00 03/03/25 11:38 Chloride IV Infused DAILY GABBY Infusion Montelukast Sodium 10 mg 02/27/25 10:00 03/03/25 09:01 Montelukast 10 Mg Tablet PO 10 mg DAILY GABBY Administration Multivitamins 1 tablet 03/01/25 12:00 03/03/25 09:02 Multivitamins,Therapeutic Tablet PO 1 tablet LUNCH GABBY Administration Nicotine 14 mg 02/27/25 02:02 03/03/25 09:00 Nicotine 14 Mg Patch TD 14 mg DAILY GABBY Administration Ondansetron HCl 8 mg 02/27/25 02:02 Ondansetron 8 Mg Tablet PO Q8H PRN PRN NAUSEA Prednisone 20 mg 03/03/25 17:00 Prednisone 20 Mg Tablet PO BIDCM GABBY Sodium Chloride 10 - 40 ml 02/27/25 02:04 03/02/25 02:46 0.9% Saline Lock 10 Ml Syringe IV 10 ml UD PRN Administration SALINE FLUSH Trazodone HCl 100 mg 02/27/25 02:02 03/03/25 00:24 Trazodone 100 Mg Tablet PO 100 mg QHS PRN PRN Administration INSOMNIA Lab / Micro Data 03/03/25 06:15 03/03/25 06:15 Labs: Laboratory Results - last 24 hr 03/03/25 06:15: WBC 10.7, RBC 3.82 L, Hgb 11.1 L, Hct 33.9 L, MCV 88.7, MCH 29.1, MCHC 32.7, RDW Std Deviation 48.5 H, RDW Coeff of Carlos 14.9 H, Plt Count 318, MPV 10.0, Sodium 142, Potassium 4.2, Chloride 111 H, Carbon Dioxide 22.7, Anion Gap 9, BUN 26 H, Creatinine 0.86, Estim Creat Clear Calc 111.12, Est GFR (MDRD) Non-Af 96, BUN/Creatinine Ratio 29.9 H, Glucose 134 H, Calcium 8.6 Assessment and Plan . Assessment and plan: Subjective: Patient seen and examined using telemedicine. Chart and data reviewed. He is awake and alert. Up in a chair. Breathing RA comfortably. No precedex or benzodiazepines required. Fever appears significantly improved. Physical Exam: Gen - NAD, morbidly obese HEENT - MMM. Sclera anicteric Resp - decreased, CTA CV - RRR. No m/g/r Abd - Soft, NT, ND Ext - No c/c/e. Skin - No rashes? Neuro - grossly NF, conversant and appropriate I have reviewed the pertinent vital sign, laboratory, and imaging data. ASSESSMENT: # Acute hypoxic respiratory failure - resolved # PNA - suspected aspiration # Acute encephalopathy - concern for EtOH withdrawal given heavy EtOH abuse. Last drink 02/25. CT/MR brain without acute infarct. Likely component of metabolic/septic encephalopathy as well - improved # h/o CVA - noted on MR brain. ?chronic gliosis vs demyelination as well # Fever - improved # Asthma/COPD exacerbation - improved # Hyponatremia - resolved # Anemia # HTN # Obesity # GERD # h/o tobacco use PLAN: -O2 as needed -inhaled BD -wean steroids quickly -receiving empiric ABX -VTE ppx -thiamine / advance po -mobilize as able We are available as needed. The entirety of this encounter was done via Telemedicine
--- NOTE | 2025-03-03 18:53 | PN.HOSP_ITS ---
Reason for Visit Chief Complaint: AMS. Subjective Subjective Patient was seen and examined today, he appears to be stable to transfer to PCU for further care. Patient is currently on room air at this time. He was seen by physical therapy today and was at maximum assist. Objective Data Objective Data Vital Signs: Vital Signs Temp Pulse Resp BP Pulse Ox O2 Del Method O2 Flow Rate 98.5 F 71 17 150/80 H 95 Room Air 2 03/03/25 14:30 03/03/25 16:00 03/03/25 14:30 03/03/25 14:30 03/03/25 14:30 03/03/25 14:30 03/03/25 10:00 FiO2 40 03/02/25 08:00 Oxygen Flow Rate (L/min) 2 Oxygen Delivery Method Room Air Weight: 123.3 kg Body Mass Index (BMI) 40.1 Intake & Output: Intake and Output for Last 24 Hours 03/01/25 03/02/25 03/03/25 23:59 23:59 23:59 Intake Total 3822.09 / 3822.09 902 / 902 812 / 812 Output Total 0 / 0 2250 / 2250 750 / 750 Balance 1772.09 / 1772.09 -1348 / -1348 62 / 62 Lab / Micro Data 03/03/25 06:15 03/03/25 06:15 Labs: Laboratory Results - last 24 hr 03/03/25 06:15: WBC 10.7, RBC 3.82 L, Hgb 11.1 L, Hct 33.9 L, MCV 88.7, MCH 29.1, MCHC 32.7, RDW Std Deviation 48.5 H, RDW Coeff of Carlos 14.9 H, Plt Count 318, MPV 10.0, Sodium 142, Potassium 4.2, Chloride 111 H, Carbon Dioxide 22.7, Anion Gap 9, BUN 26 H, Creatinine 0.86, Estim Creat Clear Calc 111.12, Est GFR (MDRD) Non-Af 96, BUN/Creatinine Ratio 29.9 H, Glucose 134 H, Calcium 8.6 Micro: Microbiology 02/26/25 20:20 Urine, Clean Catch Urine Culture - Final Mixed Gram Positive Organisms 02/26/25 21:05 Blood Culture (Wb) - Anticubital Left Blood Culture - Preliminary No growth in 48 hours. 02/26/25 20:55 Blood Culture (Wb) - Left Wrist Blood Culture - Preliminary No growth in 48 hours. 02/28/25 20:15 Mucosa - Nasopharyngeal Coronavirus COVID-19 PCR - Final 02/28/25 18:20 Nasal Secretion MRSA (PCR) - Final 02/28/25 15:15 Urine Catheter - Schreiber Legionella Antigen - Final 02/28/25 15:15 Urine Catheter - Schreiber Streptococcus pneumoniae Antigen (M - Final 02/27/25 03:45 Mucosa - Nasopharyngeal Respiratory Panel (PCR) - Final Physical Exam Const alert, oriented x3 and no apparent distress Constitutional Narrative: Patient has class III obesity General Appearance: cooperative, well kempt and well developed Orientation / Consciousness: awake, oriented to person, oriented to place and oriented to time HEENT normocephalic, head/scalp atraumatic and moist oral mucous membranes Eyes PERRL, EOMs intact bilaterally and conjunctivae normal Neck supple, no JVD, thyroid normal and no carotid bruits General: trachea midline Resp normal respiratory effort, no retractions, no use of accessory muscles and clear to auscultation bilaterally Auscultation: Negative for rales, rhonchi or wheezes Cardio regular rate, regular rhythm, S1 normal heart sound, S2 normal heart sound, no murmurs, no rub and no gallops GI normal to inspection, nondistended, normoactive bowel sounds, soft to palpation, non-tender and non-distended Extremity no clubbing, cyanosis or edema Skin no rashes or lesions noted General Skin Exam: no breakdown Neuro oriented x3, CN's II-XII intact bilaterally, moves all extremities, no focal motor deficits and no sensory deficits noted Sensorium / Orientation: awake and alert Speech: speech normal Psych affect normal Assessment & Plan Assessment/Plan (1) Acute hypoxic respiratory failure: PLAN: Plan 1. Sepsis secondary to aspiration pneumonia-patient will remain on his current antibiotic per infectious diseases, again patient appears stable for transfer to PCU for further care #2 aspiration pneumonia-patient will remain on his present diet per speech #3 acute debility secondary to sepsis and aspiration pneumonia-PT and OT will work with the patient #4 acute respiratory failure-resolved at this time, patient is on room air #5 metabolic encephalopathy secondary to sepsis and pneumonia-patient is alert today and responds appropriately to simple questions #6 cerebrovascular disease-patient is on Plavix and a statin #7 chronic obstructive pulmonary disease-continue aerosol treatments Total clinical time spent by myself addressing the patient's medical issues, reviewing all of his data, and collaborating with patient's care team: 35- minutes Charges/Coding Visit Charges Inpatient E&M: 79395 Subs Hosp L2
[2025-03-03] MEDS: 0.9% Normal Saline (250mL Bag) 250 ML 15 ML IV (20:54)
[2025-03-04] VITALS (11 sets, daily range): BP systolic 144–167; BP diastolic 69–79; PULSE 70–90; RESP 16–30; TEMP 36.5–37.7; O2SAT 90–95; BMI 39.3
[2025-03-04] MEDS: metroNIDAZOLE 500 MG/100 ML BAG 100 MG IV ×3 (05:28→21:22)
[2025-03-04] MEDS: Budesonide Respules 0.5 MG/2 ML AMPUL.NEB. INHALATION ×2 (07:16→19:43)
[2025-03-04] MEDS: Lactobacillis Acidophilus 1 CAP PO ×4 (08:45→21:19)
[2025-03-04] MEDS: Pantoprazole Sodium 40 MG in 0.9% Normal Saline (100mL MB+) 100 ML 300 MG IV (08:54)
[2025-03-04] MEDS: 0.9% Saline Lock 10 ML Syringe IV ×2 (09:51→21:19)
[2025-03-04] MEDS: Cefepime HCl 2 GM in 0.9% Normal Saline (100mL MB+) 100 ML IV ×2 (09:51→21:18)
[2025-03-04] MEDS: Thiamine Hydrochloride 200 MG in 0.9% Normal Saline (50mL Bag) 50 ML IV (11:03)
--- NOTE | 2025-03-04 18:39 | PN.HOSP_ITS ---
Reason for Visit Chief Complaint: AMS. Subjective Subjective Patient was seen and examined today, he remains on room air. Patient again asked me if he could be discharged home, I told him I would reevaluate him tomorrow and see how he did with PT and OT. Objective Data Objective Data Vital Signs: Vital Signs Temp Pulse Resp BP Pulse Ox O2 Del Method O2 Flow Rate 98.2 F 77 28 H 146/69 H 90 Room Air 2 03/04/25 14:46 03/04/25 14:46 03/04/25 14:46 03/04/25 14:46 03/04/25 14:46 03/04/25 14:46 03/03/25 10:00 FiO2 40 03/02/25 08:00 Oxygen Flow Rate (L/min) 2 Oxygen Delivery Method Room Air Weight: 120.9 kg Body Mass Index (BMI) 39.3 Intake & Output: Intake and Output for Last 24 Hours 03/02/25 03/03/25 03/04/25 23:59 23:59 23:59 Intake Total 902 / 902 1033.25 / 1033.25 904 / 904 Output Total 2250 / 2250 750 / 750 500 / 500 Balance -1348 / -1348 283.25 / 283.25 404 / 404 Lab / Micro Data 03/03/25 06:15 03/03/25 06:15 Micro: Microbiology 02/27/25 17:50 Blood Culture (Wb) - Other Blood Culture - Preliminary No growth in 48 hours. 02/27/25 17:50 Blood Culture (Wb) - Anticubital Right Blood Culture - Preliminary No growth in 48 hours. 02/26/25 20:55 Blood Culture (Wb) - Left Wrist Blood Culture - Final No growth in 5 days. 02/26/25 21:05 Blood Culture (Wb) - Anticubital Left Blood Culture - Final No growth in 5 days. 02/26/25 20:20 Urine, Clean Catch Urine Culture - Final Mixed Gram Positive Organisms 02/28/25 20:15 Mucosa - Nasopharyngeal Coronavirus COVID-19 PCR - Final 02/28/25 18:20 Nasal Secretion MRSA (PCR) - Final 02/28/25 15:15 Urine Catheter - Schreiber Legionella Antigen - Final 02/28/25 15:15 Urine Catheter - Schreiber Streptococcus pneumoniae Antigen (M - Final 02/27/25 03:45 Mucosa - Nasopharyngeal Respiratory Panel (PCR) - Final Physical Exam Narrative alert, oriented x3 and no apparent distress Constitutional Narrative: Patient has class III obesity General Appearance: cooperative, well kempt and well developed Orientation / Consciousness: awake, oriented to person, oriented to place and time HEENT normocephalic, head/scalp atraumatic and moist oral mucous membranes Eyes PERRL, EOMs intact bilaterally and conjunctivae normal Neck supple, no JVD, thyroid normal and no carotid bruits General: trachea midline Resp normal respiratory effort, no retractions, no use of accessory muscles and clear to auscultation bilaterally Auscultation: Negative for rales, rhonchi or wheezes Cardio regular rate, regular rhythm, S1 normal heart sound, S2 normal heart sound, no murmurs, no rub and no gallops GI normal to inspection, nondistended, normoactive bowel sounds, soft to palpation, non-tender and non-distended Extremity no clubbing, cyanosis or edema Skin no rashes or lesions noted General Skin Exam: no breakdown Neuro oriented x3, CN's II-XII intact bilaterally, moves all extremities, no focal motor deficits and no sensory deficits noted Sensorium / Orientation: awake and alert Speech: speech normal Psych affect normal Assessment & Plan Assessment/Plan (1) Aspiration pneumonia: QUALIFIERS: Aspiration pneumonia type: unspecified Laterality: r ight Lung location: lower lobe of lung Qualified Code(s): J69.0 - Pneumonitis due to inhalation of food and vomit (2) Acute hypoxic respiratory failure: PLAN: Plan 1. Sepsis secondary to aspiration pneumonia-patient will remain on his current antibiotic per infectious diseases, continue PT, OT and speech therapy #2 aspiration pneumonia-patient will remain on his present diet per speech #3 acute debility secondary to sepsis and aspiration pneumonia-PT and OT will work with the patient #4 acute respiratory failure-resolved at this time, patient is on room air #5 metabolic encephalopathy secondary to sepsis and pneumonia-patient is alert today and responds appropriately to simple questions #6 cerebrovascular disease-patient is on Plavix and a statin #7 chronic obstructive pulmonary disease-continue aerosol treatments It is possible that PT and OT will recommend the patient go to an extended care facility for short-term rehab services, I do not know whether the patient will be comfortable with this recommendation. Total clinical time spent by myself addressing the patient's medical issues, reviewing all of his data, and collaborating with patient's care team: 35- minutes Charges/Coding Visit Charges Inpatient E&M: 25077 Subs Hosp L2
[2025-03-05 03:00] VITALS: BP 147/74; PULSE 85; RESP 26; TEMP 36.9; O2SAT 95; O2SAT 96
[2025-03-05] MEDS: metroNIDAZOLE 500 MG/100 ML BAG 100 MG IV (06:05)
[2025-03-05] MEDS: Budesonide Respules 0.5 MG/2 ML AMPUL.NEB. INHALATION (06:44)
[2025-03-05 06:45] VITALS: PULSE 70; RESP 18; O2SAT 98
[2025-03-05 09:27] VITALS: BP 159/76; PULSE 78; RESP 22; TEMP 36.5; O2SAT 93
[2025-03-05] MEDS: Lactobacillis Acidophilus 1 CAP PO ×2 (09:29→15:02)
[2025-03-05] MEDS: Cefepime HCl 2 GM in 0.9% Normal Saline (100mL MB+) 100 ML IV (09:31)
[2025-03-05] MEDS: Thiamine Hydrochloride 200 MG in 0.9% Normal Saline (50mL Bag) 50 ML IV (09:31)
[2025-03-05 09:42] VITALS: O2SAT 88
[2025-03-05 11:00] VITALS: BP 151/84; PULSE 70; RESP 22; TEMP 36.8; O2SAT 93
--- NOTE | 2025-03-05 11:20 | CASEMGMT ---
Addendum entered by Marilee Us 03/05/25 14:46: AIDA and BAY met with pt and pt to discuss discharge planning. Pt reports that she wants pt to have HHC and resources for substance use. Pt agreeable and reports that he has decided to put her in charge. Pt reports that pt has an addictive personality and often is not able to regulate himself. SW provided resources for substance abuse and counseling. HHC list requested from [facility]. AIDA remains available to follow. YOUSIF Sebastian Original Note: Social Work- AIDA met with pot to discuss discharge planning needs. Pt reports that he does not want SNF, OP therapy, or HHC. Pt reports that he doesn't have any needs at this time and is uncertain if any needs will pop-up at home. Pt reports his is off all week from work and has cared for him in the past following a back surgery. Pt reports that he has grab bars and a walker at home; pt reports no home DME needs. Pt reports that he intends to return home to his previous routine. Pt reports he gets up, gets coffee, and watches the news in his recliner. Pt reports that he has 2 acres of yard that he maintains and has a large shop approx 40' from his home that he spends time in. Pt reports that his home is compact and he plans to sleep in his recliner. Pt reports his will help him with any needs eating. Pt reports if there are needs that arise, he will call the hospital. SW provided education that pt would need to call PCP for needs post-discharge. AIDA provided education that pt could be provided with OP therapy script to utilize as needed; pt declined reporting he doesn't have any needs currently or know what needs may arise. SW again attempted education. Pt adamant that he has no desire for referrals at this time. Pt refusing ETOH resources as well at this time. Pt reports his drinking varies and does not feel it is problematic or impacts daily life. Pt agreeable to AIDA meeting with when she arrives to discuss d/c plan. AIDA remains available to follow. YOUSIF Sebastian
[2025-03-05 12:16] VITALS: PULSE 75; RESP 18
--- NOTE | 2025-03-05 13:03 | PCM.PN.ID ---
Physical Exam Narrative Feeling much better, no fever, dyspnea resolved, no n/v/d. Const alert and no apparent distress General Appearance: cooperative Resp clear to auscultation bilaterally Auscultation: diminished lung sounds Cardio regular rate and regular rhythm GI soft to palpation, non-tender and non-distended Skin no rashes or lesions noted ID ID: Route of nutrition/ use of supplements: [] Nutritional Intake: [] IV Site: [] Schreiber Catheter: [] Assessment & Plan Assessment/Plan (1) Sepsis: QUALIFIERS: Sepsis type: sepsis due to unspecified organism Sepsis acute organ dysfunction status: with acute organ dysfunction Severe sepsis acute organ dysfunction type: encephalopathy Severe sepsis shock status: without septic shock Qualified Code(s): A41.9 - Sepsis, unspecified organism; R65.20 - Severe sepsis without septic shock; G93.41 - Metabolic encephalopathy PLAN: Infectious workup neg so far besides for presumed aspiration pneumonia. Lyme neg. Etoh withdrawal could be playing a part in his temps. Now feeling much better, infection appears resolved, will stop abx. Will follow as needed (2) Aspiration pneumonia: QUALIFIERS: Aspiration pneumonia type: unspecified Laterality: right Lung location: lower lobe of lung Qualified Code(s): J69.0 - Pneumonitis due to inhalation of food and vomit (3) Acute metabolic encephalopathy:
--- NOTE | 2025-03-05 14:35 | CASEMGMT ---
NEENA CORTES in to patient's room with SW to discuss discharge planning, at bedside. RN CM dicussed progress with therapy and recommendations for additional therapy. states she would like HHC at discharge, patient agreeable. CM to provide list of HHC to patient and for preferences. CM will continue to follow this patient and plan for a safe discharge.
--- NOTE | 2025-03-05 14:50 | CASEMGMT ---
Discharge Planning A list of?HH providers including quality and resource use data and consistent with the patient's preferred geographic region, medical needs, and insurance network was created in [facility] Guide.? This list was provided to the RN SOPHIA. Licha Maloney, Discharge Planning Asst.
--- NOTE | 2025-03-05 15:45 | CASEMGMT ---
Addendum entered by Marge Montalvo 03/05/25 16:37: NEENA CORTES received call back from [facility], they are able to accept patient with start of care for Wednesday. NEENA CORTES updated patient regarding [facility] acceptance and SOC. NEENA CORTES updated discharge plan. Patient had no furtehr questions or concerns. Original Note: NEENA CORTES provided HHC list to patient and . Patient and state they prefer [facility] for at discharge. Patient denied further needs or concerns. NEENA CORTES sent referral to [facility], awaiting acceptance.
--- NOTE | 2025-03-05 16:20 | DCINST_ITS ---
Discharge Instructions DC O2, CPAP, BIPAP needs Home O2 Discharge instructions: No Dressing / Incision Discharge Activity: Return to Normal Activity Weight Bearing Status: Full weight bearing Follow Up Care Test Results: Test results from this visit will be discussed in further detail at your follow- up appointment, if applicable. Discharge Plan Admission Admit Date/Time: 02/27/25 00:37 Primary Reason for Your Visit: Aspiration pneumonia Attending Provider: Antonio Parker Primary Care Provider: Fidencio Sanders Consulting Providers: Gorge Maya; Maira Yeh; Armani Tolbert; Jaime Gannon Discharge Orders/Prescriptions Prescriptions: New prednisone 20 mg Tablet 20 mg PO BIDCM Qty: 10 0RF Rx Instructions: 1 twice a day for 5 days starting 03/06/2025 then stop the medication furosemide [Lasix] 40 mg tablet 40 mg PO DAILY Qty: 7 0RF Rx Instructions: 1 daily for 5 to 7 days for water retention potassium chloride [Klor-Con 10] 10 mEq tablet extended release 20 meq PO DAILY Qty: 14 0RF Rx Instructions: Take 2 tabs once a day while taking furosemide for water retention Continued atorvastatin 80 mg tablet 80 mg PO DAILY clopidogrel 75 mg tablet 75 mg PO DAILY lisinopril 2.5 mg tablet 2.5 mg PO DAILY ipratropium-albuterol 0.5 mg-3 mg(2.5 mg base)/3 mL solution for nebulization 3 ml continuous nebulization Q4H PRN PRN (Reason: wheezing) esomeprazole magnesium 40 mg capsule,delayed release(DR/EC) 40 mg PO DAILY folic acid 1 mg tablet 1 mg PO DAILY thiamine HCl (vitamin B1) 100 mg tablet 100 mg PO DAILY umeclidinium-vilanterol [Anoro Ellipta] 62.5-25 mcg/actuation blister with device 1 ea INHALATION DAILY montelukast 10 mg tablet 10 mg PO DAILY Referrals / Follow Up: Jaime Lanza DO [Non-Staff] - Fidencio Sanders PAKevinC [Primary Care Provider] - Within 2 Weeks Disposition Disposition (needs filled in before D/C Order can be placed): Home Health Service
--- NOTE | 2025-03-05 16:26 | PCM.DC.SUM ---
Providers Date of Admission: 02/27/25 Date of Discharge: 03/05/25 Primary Care Physician: Fidencio Sanders PA-C Consultations 02/28/25 10:18 Consult: Culinary Intern / Pulmonary Medicine Routine Consulting Provider: Intensivists/Pulmonary Med Reason for Consult: SIRS with fever and leukocytosis EMERGENT Consult: No Notified: Yes Date Notified: 02/28/25 Time Notified: 10:18 Method of Notification: Answering Service 03/01/25 07:43 Consult: Infectious Disease Routine Consulting Provider: Jaime Gannon Reason for Consult: persistent fever on broad abx EMERGENT Consult: No Notified: Yes Date Notified: 03/01/25 Time Notified: 07:50 Method of Notification: Text Reason For Visit: FEVER,LEUKOCYTOSIS,AMS, ETOH ABUSE & RECENT FALL Diagnosis Discharge Diagnosis (1) Sepsis: Status: Acute Code(s): A41.9 - Sepsis, unspecified organism Qualifiers: Sepsis acute organ dysfunction status: with acute organ dysfunction Sepsis type: sepsis due to unspecified organism Severe sepsis acute organ dysfunction type: encephalopathy Severe sepsis shock status: without septic shock Qualified Code(s): A41.9 - Sepsis, unspecified organism; R65.20 - Severe sepsis without septic shock; G93.41 - Metabolic encephalopathy (2) Aspiration pneumonia: Status: Acute Code(s): J69.0 - Pneumonitis due to inhalation of food and vomit Qualifiers: Aspiration pneumonia type: unspecified Laterality: right Lung location: lower lobe of lung Qualified Code(s): J69.0 - Pneumonitis due to inhalation of food and vomit (3) Acute metabolic encephalopathy: Status: Acute Code(s): G93.41 - Metabolic encephalopathy Plan 1. Sepsis secondary to aspiration pneumonia-patient will remain on his current antibiotic per infectious diseases, continue PT, OT and speech therapy #2 aspiration pneumonia-patient will remain on his present diet per speech #3 acute debility secondary to sepsis and aspiration pneumonia-PT and OT will work with the patient #4 acute respiratory failure-resolved at this time, patient is on room air #5 metabolic encephalopathy secondary to sepsis and pneumonia-patient is alert today and responds appropriately to simple questions #6 cerebrovascular disease-patient is on Plavix and a statin #7 chronic obstructive pulmonary disease-continue aerosol treatments #8 alcohol withdrawal with DTs It is possible that PT and OT will recommend the patient go to an extended care facility for short-term rehab services, I do not know whether the patient will be comfortable with this recommendation. Total clinical time spent by myself addressing the patient's medical issues, reviewing all of his data, and collaborating with patient's care team: 35-minutes Medications at Discharge Home Medications atorvastatin 80 mg tablet 80 mg PO DAILY 03/22/22 clopidogrel 75 mg tablet 75 mg PO DAILY 03/22/22 lisinopril 2.5 mg tablet 2.5 mg PO DAILY 03/22/22 esomeprazole magnesium 40 mg capsule,delayed release 40 mg PO DAILY 02/26/25 folic acid 1 mg tablet 1 mg PO DAILY 02/26/25 ipratropium 0.5 mg-albuterol 3 mg (2.5 mg base)/3 mL nebulization soln 3 ml continuous nebulization Q4H PRN PRN wheezing 02/26/25 montelukast 10 mg tablet 10 mg PO DAILY 02/26/25 thiamine HCl (vitamin B1) 100 mg tablet 100 mg PO DAILY 02/26/25 umeclidinium 62.5 mcg-vilanterol 25 mcg/actuation powdr for inhalation (Anoro Ellipta) 1 ea inhalation DAILY 02/26/25 furosemide 40 mg tablet (Lasix) 40 mg PO DAILY #7 tabs 03/05/25 potassium chloride 10 mEq tablet,extended release (Klor-Con) 20 meq (2 x 10 mEq) PO DAILY #14 tabs 03/05/25 prednisone 20 mg tablet 20 mg PO BIDCM #10 tabs 03/05/25 Hospital Course Operations None Procedures 2-D Echocardiogram Summary of Care Provided Minutes Spent on Discharge: 31 Hospital Course: 64-year-old white male was seen in the emergency room at [facility] with complaint of altered mental status per and generalized weakness. noted the patient to be confused at home and decided to call squad to bring the patient to [facility] ER for evaluation. Workup in the emergency room included a CBC which showed an elevated white blood cell count at 17.4, hemoglobin was 13.1, chemistry profile was remarkable for sodium of 126, chloride of 90, initial troponin was 52, repeat troponin 2 hours was 49, AST was slightly elevated at 42, and urinalysis was unremarkable. Brain CT showed no acute intracranial hemorrhage midline shift or mass effect, chest x-ray showed cardiomegaly with mild congestion and the patient was febrile with a temperature of 102.7. Chest CT was performed which showed a right lower lobe pneumonia. Patient was admitted to [facility] for right lower lobe pneumonia with possible sepsis, he was admitted to the ICU and placed on IV antibiotics. Patient was given fluids and due to concerns of alcohol substance use disorder at home, he was started on a phenobarbital taper while hospitalized. Patient was transferred to PCU but due to a spike in his temperature and the patient hyperventilating, he was moved back to ICU for further care. Echocardiogram was obtained which was unremarkable, he was placed on Precedex for agitation. Patient was seen in consultation by speech therapy and his Precedex was eventually weaned off, patient was ultimately transferred back to PCU and seen by PT and OT. Patient improved during his hospital stay there were concerns that he would have to go to a skilled care facility but it turned out the patient improved enough to go home. On 03/05/2025, patient was seen and examined: On examination he appeared in good health and spirits. Vital signs as documented. Skin warm and dry and without overt rashes. Neck without JVD, neck was supple, trachea midline, thyroid was normal. Lungs clear bilaterally, normal air movement was noted. Heart exam notable for regular rhythm, normal sounds and absence of murmurs, rubs or gallops. Abdomen unremarkable and without evidence of organomegaly, masses, or abdominal aortic enlargement. Bowel sounds are present, abdomen is not distended. Extremities nonedematous, no cyanosis was noted, no clubbing was noted. Neuro: Cranial nerves II through XII are grossly intact, no focal motor deficits were noted, sensation to light touch and pinprick intact, motor exam 5/5 throughout. Psych: Patient is alert and oriented x3, he does not appear anxious or depressed, he does not appear agitated. Patient appears stable for discharge home on 03/05/2025. Weight / BMI Weight Weight: 120.9 kg Body Mass Index (BMI) 39.3 ABG / Lab / Microbiology Data 03/03/25 06:15 03/03/25 06:15 Microbiology: Microbiology 02/27/25 17:50 Blood Culture (Wb) - Other Blood Culture - Final No growth in 5 days. 02/27/25 17:50 Blood Culture (Wb) - Anticubital Right Blood Culture - Final No growth in 5 days. 02/26/25 20:55 Blood Culture (Wb) - Left Wrist Blood Culture - Final No growth in 5 days. 02/26/25 21:05 Blood Culture (Wb) - Anticubital Left Blood Culture - Final No growth in 5 days. 02/26/25 20:20 Urine, Clean Catch Urine Culture - Final Mixed Gram Positive Organisms 02/28/25 20:15 Mucosa - Nasopharyngeal Coronavirus COVID-19 PCR - Final 02/28/25 18:20 Nasal Secretion MRSA (PCR) - Final 02/28/25 15:15 Urine Catheter - Schreiber Legionella Antigen - Final 02/28/25 15:15 Urine Catheter - Schreiber Streptococcus pneumoniae Antigen (M - Final 02/27/25 03:45 Mucosa - Nasopharyngeal Respiratory Panel (PCR) - Final D/C Instructions Weight Bearing Status: Full weight bearing DC O2, CPAP, BIPAP Needs Home O2 Discharge instructions: No Meaningful Use Info Meaningful Use Meaningful Use Diagnoses (Choose all that apply): None applicable Discharge Plan Admission Admit Date/Time: 02/27/25 00:37 Primary Reason for Your Visit: Aspiration pneumonia Attending Provider: Antonio Parker Primary Care Provider: Fidencio Sanders Consulting Providers: Gorge Maya; Maira Yeh; Armani Tolbert; Jaime Gannon Discharge Orders/Prescriptions Prescriptions: New prednisone 20 mg Tablet 20 mg PO BIDCM Qty: 10 0RF Rx Instructions: 1 twice a day for 5 days starting 03/06/2025 then stop the medication furosemide [Lasix] 40 mg tablet 40 mg PO DAILY Qty: 7 0RF Rx Instructions: 1 daily for 5 to 7 days for water retention potassium chloride [Klor-Con 10] 10 mEq tablet extended release 20 meq PO DAILY Qty: 14 0RF Rx Instructions: Take 2 tabs once a day while taking furosemide for water retention Continued atorvastatin 80 mg tablet 80 mg PO DAILY clopidogrel 75 mg tablet 75 mg PO DAILY lisinopril 2.5 mg tablet 2.5 mg PO DAILY ipratropium-albuterol 0.5 mg-3 mg(2.5 mg base)/3 mL solution for nebulization 3 ml continuous nebulization Q4H PRN PRN (Reason: wheezing) esomeprazole magnesium 40 mg capsule,delayed release(DR/EC) 40 mg PO DAILY folic acid 1 mg tablet 1 mg PO DAILY thiamine HCl (vitamin B1) 100 mg tablet 100 mg PO DAILY umeclidinium-vilanterol [Anoro Ellipta] 62.5-25 mcg/actuation blister with device 1 ea INHALATION DAILY montelukast 10 mg tablet 10 mg PO DAILY Referrals / Follow Up: Jaime Lanza DO [Non-Staff] - Fidencio Sanders PA-C [Primary Care Provider] - Within 2 Weeks Disposition Disposition (needs filled in before D/C Order can be placed): Home Health Service Charges/Coding Visit Charges Inpatient E&M: 85724 Disch Hosp >30min
== END 2025-03-05 18:09 | disposition home health service (06) | DRG 871 ==
LOC: ED 02-27 00:07 → ICU 02-27 01:21 → PCU 02-27 16:18 → ICU 02-28 03:45 → PCU 03-03 16:03
PROVIDERS: Hospitalist; Internal Medicine Pulmonary Disease; Student in an Organized Health Care Education/Training Program; Admitting Provider Internal Medicine; Emergency Provider Emergency Medicine; PCP Physician Assistant; Visit Provider Internal Medicine
DX: A41.9 Sepsis, unspecified organism (principal); J69.0 Pneumonitis due to inhalation of food and vomit; I50.33 Acute on chronic diastolic (congestive) heart failure; J96.01 Acute respiratory failure with hypoxia; G93.41 Metabolic encephalopathy; F10.231 Alcohol dependence with withdrawal delirium; I24.89 Other forms of acute ischemic heart disease; J44.1 Chronic obstructive pulmonary disease with (acute) exacerbation; E87.1 Hypo-osmolality and hyponatremia; D64.9 Anemia, unspecified; I11.0 Hypertensive heart disease with heart failure; Z68.38 Body mass index [BMI] 38.0-38.9, adult; E66.01 Morbid (severe) obesity due to excess calories; E78.5 Hyperlipidemia, unspecified; M48.00 Spinal stenosis, site unspecified; K21.9 Gastro-esophageal reflux disease without esophagitis; M17.12 Unilateral primary osteoarthritis, left knee; I45.10 Unspecified right bundle-branch block; R65.20 Severe sepsis without septic shock; F17.210 Nicotine dependence, cigarettes, uncomplicated; Z79.02 Long term (current) use of antithrombotics/antiplatelets; Z79.899 Other long term (current) drug therapy; M51.369 Other intervertebral disc degeneration, lumbar region without mention of lumbar back pain or lower extremity pain; R59.0 Localized enlarged lymph nodes; R45.1 Restlessness and agitation; Z68.39 Body mass index [BMI] 39.0-39.9, adult; E66.812 Obesity, class 2; R53.81 Other malaise; Z86.73 Personal history of transient ischemic attack (TIA), and cerebral infarction without residual deficits; Y90.9 Presence of alcohol in blood, level not specified
CPT/HCPCS: 36415; 36569; 36600; 70450; 70553; 71045; 71046; 71250; 71275; 72125; 73564; 74177; 74230; 80048; 80053; 80061; 80076; 80202; 80307; 81001; 82077; 82140; 82607; 82746; 82803; 83036; 83605; 83690; 83735; 83880; 83930; 83935; 84100; 84145; 84443; 84484; 85025; 85027; 85379; 85610; 85730; 86618; 87040; 87086; 87088; 87449; 87633; 87635; 87641; 92526; 92610; 92611; 93005; 93306; 94640; 94660; 94762; 97116; 97163; 97167; 97530; 97535; 99285; 99406; A9575; Q9957; Q9967; A4216; C8929; J1938

== ENCOUNTER 2025-03-10 01:09 | Inpatient (IN) | payer MEDICARE, OTHER, SELFPAY ==
[2025-03-10] VITALS (27 sets, daily range): BP systolic 120–158; BP diastolic 48–118; PULSE 64–100; RESP 12–42; TEMP 36.7–38.1; O2SAT 3–98; BMI 37.8; BMI 37.7
--- NOTE | 2025-03-10 01:27 | EKG12_ITS ---
Test Reason : DYSRHYTHMIA Blood Pressure : */* mmHG Vent. Rate : 89 BPM Atrial Rate : 89 BPM P-R Int : 130 ms QRS Dur : 112 ms QT Int : 404 ms P-R-T Axes : 25 16 -7 degrees QTcB Int : 491 ms Normal sinus rhythm Right bundle branch block Abnormal ECG Confirmed by DIMITRIOS CACERES, CAROLYN ([id number]), loan expeditor LARRY GIBSON ([id number]) on 03/12/2025 1:01:05 PM Referred By: Confirmed By: CAROLYN PLUNKETT MD
--- NOTE | 2025-03-10 01:36 | CT_ITS ---
PROCEDURE: BRAIN/HEAD WITHOUT CONTRAST 03/10/2025 REASON FOR EXAM: TRAUMA TECHNIQUE: BRAIN/HEAD WITHOUT CONTRAST Coronal and Sagittal reconstruction series were provided. One or more dose reduction techniques were used (e.g., Automated exposure control, adjustment of the mA and/or kV according to patient size, use of iterative reconstruction technique. RADIATION DOSE SUMMARY: CTDlvol: 44.99 mGy DLP: 846.73 mGycm COMPARISON: 02-27-2025 MRI study FINDINGS: Accentuated bilateral cerebral periventricular deep white matter hypodensities denoting hypoperfusion with bilateral cerebral periventricular and subcortical as well as pontine hypodense foci and patches. Delong-white matter differentiation is maintained. Normal CT appearance of the rest of the posterior fossa structures. No intracerebral or extra axial hemorrhage. Prominent ventricular system, cortical sulci and extra-axial CSF spaces. No definite calvarial fractures. No midline shifts or deformity. The osseous structures in the skull base are unremarkable. Paranasal sinuses are unremarkable. Vascular atheromatous calcifications. CT/Brain/Head without Contrast IMPRESSION: No acute cerebrovascular abnormalities. If clinical symptoms persist, further e valuation with MRI may be considered as clinically warranted. No intra or extra-axial acute hemorrhage. Bilateral cerebral microvascular ischemic changes with brain involutional mcdonnell es. Stable. Reading [facility]
[2025-03-10 01:42] LABS: Hematocrit 35.4 % (40-54); Hemoglobin 12.0 g/dL (13.0-16.5); Immature Granulocytes Count 0.240 X10^3/uL (0.0-0.0); Mean Corp Hgb Conc 33.9 g/dL (32-36); Mean Corpuscular Volume 86.8 fL (80-94); Mean Platelet Vol. 9.8 fl (6.2-12.0); NRBC Flagged by Analyzer 0 % (0-5); POSITIVE DIFFERENTIAL YES; Platelet Count 466 K/mm3 (150-450); RBC Distribution Width CV 14.5 % (11.6-14.6); RBC Distribution Width SD 45.9 fl (35.1-43.9); Red Blood Count 4.08 M/mm3 (4.6-6.2); White Blood Count 16.0 K/mm3 (4.4-11.0)
[2025-03-10 01:43] LABS: Allen Test Positive; Base Excess 5 mmol/L (-2 to +2); FI02 30.0; PEEP 8; PIP 14; PO2 66 mmHG (75-100); RR 12; SITE R Radial; SO2 95 % (95-99)
--- NOTE | 2025-03-10 01:43 | CPS ---
[0140] Pt. ripped off BiPAP at this time. Dr. sweeney. ABG showing signs of hyperventilation.
[2025-03-10 01:49] LABS: Differential Indicated SCAN CRITERIA MET
--- NOTE | 2025-03-10 01:50 | RAD_ITS ---
PROCEDURE: CHEST 1 VIEW (PORTABLE) 03/10/2025 REASON FOR EXAM: Shortness of breath. TECHNIQUE: Frontal view of the chest. COMPARISON: CT scan on 03/10/2025. FINDINGS: Minimal bilateral pleural effusions. Passive atelectatic airspace disease in the lower lobes. Enlarged cardiac silhouette. Normal mediastinum and alondra. Normal visualized pulmonary arteries. Atheromatous plaques of the visualized aortic arch and descending thoracic aorta. Diffuse spondylosis of the visualized thoracic spine. Normal visualized ribs, clavicles. Degenerative joint disease. There is no demonstrated abnormality of the visualized soft tissue structures of the upper abdomen. RAD/Chest 1 View (Portable) IMPRESSION: Minimal bilateral pleural effusions. Passive atelectatic airspace disease in the lower lobes. Enlarged cardiac silhouette. Reading Location[facility] [address]
[2025-03-10 01:51] LABS: Prothrombin Time (Protime)PT. 17.0 SECONDS (11.7-14.9)
--- OUTSIDE RECORDS SUMMARY | 2025-03-10 01:51 | XMS RPT_ITS | CCD ---
Author Organization [facility] Care Team Providers Care Cpa Tax Name Role Phone Unavailable Primary Care Provider Unavailoseas Lanza DO Pilar F Primary Care Provider [phone] PROVIDER, UNKNOWN Referring Unavailable MYLA, PILAR F Primary Care Unavailable Myla DO Pilar F Primary Care Provider [phone] Myla DO, Pilar F Primary Care Provider [phone] Unavailable Primary Care Provider Unavailoseas Wu RN, Brooke Unavailable Unavailable BERTHA KAUR Attending Unavailable MYLA, PILAR F Primary Care Unavailable MYLA, PILAR F Primary Care Unavailable SAV SANCHEZMIT Attending Unavailable LAURA EVERTON Referring Unavailable MYLA, PILAR F Primary Care Unavailable PREBISHBERTHA Attending Unavailable MYLA, PILAR F Primary Care Unavailable LOIS HOANG Attending Unavailable MYLA, PILAR F Primary Care Unavailable LOIS HOANG Referring Unavailable LOIS HOANG Admitting Unavailable LOIS HOANG Attending Unavailable OTOOLE, MICHAELA Consulting Unavailable MYLA, PILAR F Primary Care Unavailable BERTHA KAUR Attending Unavailable BETRHA KAUR Referring Unavailable SAV SANCHEZMIT Attending Unavailable MYLA, PILAR F Primary Care Unavailable MYLA, PILAR F Primary Care Unavailable LOIS HOANG Referring Unavailable LOIS HOANG Attending Unavailable MYLA, PILAR F Primary Care Unavailable MYLA, PILAR F Primary Care Unavailable SHELTON FLORES Referring Unavail able MYLA, PILAR F Primary Care Unavailable SHELTON FLORES Referring Unavail able MYLA, PILAR F Primary Care Unavailable LOIS HOANG Referring Unavailable MYLA, PILAR F Primary Care Unavailable LOIS HOANG Referring Unavailable MYLA, PILAR F Primary Care Unavailable BERTHA KAUR Attending Unavailable MYLA, PILAR F Primary Care Unavailable BRIAN ANGLIN Attending Unava ilable MYLA, PILAR F Primary Care Unavailable HAZZI, RAMI Admitting Unavailable HAZZI, RAMI Attending Unavailable MYLA, PILAR F Primary Care Unavailable PREBISH, EBRTHA Referring Unavailable DHIRAJ HERR Attending Unavailable MYLA, PILAR F Primary Care Unavailable YASHIRA GONSALES Attending Unavailable MYLA, PILAR F Primary Care Unavailable LOIS HOANG Attending Unavailable MYLA, PILAR F Primary Care Unavailable LOIS HOANG Referring Unavailable MYLA, PILAR F Primary Care Unavailable PREBISH, BERTHA Attending Unavailable MYLA, PILAR F Primary Care Unavailable PREBISH, BERTHA Referring Unavailable EVERTON SANCHEZ Attending Unavailable MYLA, PILAR F Primary Care Unavailable SIBILIA, PILAR Referring Unavailable MYLA, PILAR F Primary Care Unavailable VARUN SAHNI Attending Unavailable VIDHYA, LOIS Referring Unavailable Ross PROCESS TRAINER-PROFESSOR OF MARKETING, Veronica Unavailable Ana COYLE, Dr. Avila Emergency Provider [phone] Anna Sanders PA-C Primary Care Provider Maya DO, Dr. Pennington Admit Provider Unavail able Dr. Mechelle Maya DO Attending Provider Unav ailable Maya DO, Dr. Pennington Other Provider Unavail able Ruba CACERES, Dr. Maira Cortes Other Provider [phone] Elena COYLE, Dr. Alvarez Attending Provider [phone] Didi COYLE, Dr. Lomeli Other Provider [phone] Dr. Pilar Gannon MD Other Provider [phone] Dr. Mechelle Maya DO Attending Provider Unav ailable Dr. Lavinia Kee MD Attending Provider Unavailab nkechi Bryan MD, Dr. Morales Other Provider Dr. Tj Harris MD Other Provider Dr. Mao Carmona MD Other Provider Dr. Sanya Reese DO Other Provider Carola CACERES, Dr. Mechelle Burkett Other Provider Gopi CACERES, Dr. Benítez Other Provider Fernando CACERES, Dr. Miranda Other Provider Mark CACERES, Dr. Robb Other Provider [phone] Alyce CACERES, Dr. Lawson Other Provider Ashu CACERES, Dr. Toure Other Provider Сергей CACERES, Dr. Trinidad Other Provider Leidy CACERES, Dr. Coronado Other Provider Lexi CACERES, Dr. Thao Other Provider Unavailabl mimi Guzman MD, Dr. Ramos Other Provider Paula CACERES, Dr. Vergara Other Provider Katina CACERES, Dr. Rivera Other Provider Karla CACERES, Dr. Gordon Other Provider Dr. Jose A Anthony DO Other Provider Magnolia CACERES, Dr. Mcneil Other Provider David CACERES, Dr. Loya Other Provider Dr. Raul Jack DO Other Provider Abdias CACERES, Dr. Yeung Other Provider Vijay CACERES, Dr. Carson Other Provider Dr. Armani Tolbert DO Attending Provider Dr. Antonio Parker DO Other Provider [phone] NON-EPICCARE, PROVIDER Primary Care Unavailab ANNA Johnson Attending Unavailable PREMA, PRECIOUS Admitting Unavailable BRIAN ANGLIN Referring Unavaila ble ISADORA LLOYDZABETH Attending Unavailable NON-EPICCARE, PROVIDER Primary Care Unavailab AURA Jordan Admitting Unavailable NON-EPICCARE, PROVIDER Primary Care Unavailab le PREMA, PRECIOUS Admitting Unavailable PREMA, PRECIOUS Attending Unavailable NON-EPICCARE, PROVIDER Primary Care Unavailab le PREMA, PRECIOUS Admitting Unavailable MECHELLE FERREIRA Attending Unavailable NON-EPICCARE, PROVIDER Primary Care Unavailab le PRECIOUS LLOYD Admitting Unavailable CONSULT, IP NEUROLOGY Consulting UnavailRACHNA Davis Attending Unavailable BRIAN ANGLIN Referring Unavaila ble REQUEST, IP PHYSICAL THERAPY SERVICE Consulting Unavailable NON-EPICCARE, PROVIDER Primary Care Unavailab le KHALID, AURA Admitting Unavailable KHALID, AURA Attending Unavailable ISADORA LLOYDZABETH Admitting Unavailable NON-EPICCARE, PROVIDER Primary Care Unavailab le KHALID, AURA Referring Unavailable VERONICA BUTT Attending Unavailable Antonio Parker Attending Unavailable Mechelle Maya Consulting Unavailable Mechelle Maya Admitting Unavailable Anna Randolph Primary Care Unavailable Maira Yeh Sophia Consulting Unavailable Armani Tolbert Consulting Unavailable Pilar Gannon Consulting Unavailable Mechelle Maya Admitting Unavailable Mechelle Maya Consulting Unavailable Armani oTlbert Attending Unavailable Anna Randoplh Primary Care Unavailable Andrew Bryan Consulting Unavailable Tj Harris Consulting Unavailable Mao Carmona Consulting Unavailable Sanya Reese Consulting Unavailable Mechelle Srivastava Consulting Unavailable Jeyson Nguyễn Consulting Unavailable Ruben King Consulting Unavailable Clarisse Flores Consulting Unavailab Renny Treviño Consulting Unavailable Mesfin Wakefield Consulting Unavailable Amos Rushing Consulting Unavailable Ivonne Forbes Consulting Unavailable Master Elliott Consulting Unavailable Rachel Guzman Consulting Unavailable Jai Mitchell Consulting Unavailable Miguel Ambriz Consulting Unavailable Evan Acosta Consulting Unavailable Tanja Anthonykhdeep Consulting Unavailable Ewa Merida Consulting Unavailable Vincenzo Hernandez Consulting Unavailable Raul Jack Consulting Unavailable Gamal Calero Consulting Unavailable Alli Linares Consulting Unavailable Ruba, Maira Sophia Consulting Unavailable Pilar Gannon Consulting Unavailable Armani Tolbert Consulting Unavailable Antonio Parker Attending Unavailable Antonio Parker Consulting Unavailable Lavinia Kee Attending Unavailable Anan Randolph Primary Care Unavailable Mechelle Maya Attending Unavailable Maira Yeh Attending Unavailable Allergies Allergy Classification Reported Allergen(s) Allergy Type Date of Onset Reaction(s) Facility Penicillins (antibiotic) (5 sources) Penicillins Drug Allergy 5 Unknown [facility] (20 sources) Penicillins; Translations: [PENICILLINS] Propensity to adverse reactions to drug 5 Unknown, Other: See Comments [facility] Comment on above: tolerated cefepime (16 sources) Roflumilast; Translations: [ROFLUMILAST] Drug Allergy 4 Rash [facility] Work Phone: (17 sources) Roflumilast Drug Allergy 4 Rash [facility] Medications Current Medications Medication Drug Class(es) Dates Sig (Normalized) Sig (Original) [id number] actuat albuterol 0.09 mg/actuat metered dose [...] solution (20 sources) Anticholinergic, beta2-Adrenergic Agonist Start: 02-26-2025 Ipratropium-Albuterol 0.5 mg-3 mg(2.5 mg base)/3 mL solution for nebulization Active 3 mL continuous nebulization EVERY 4 HOURS NEEDED as needed for wheezing February 26, 2025 12:00am Start: 10-25-2024 End: 01-08-2025 ipratropium-albuterol (DUO-N EB) 0.5-2.5 (3) MG/3ML nebulizer solution Use 3 mL via nebulizer every 4 hours as needed for Wheezing. 60 Each 2 11/17/2024 Active atorvastatin 80 mg oral tablet (20 sources) HMG-CoA Reductase Inhibitor Start: 04-24-2019 End: 10-26-2024 take 1 tablet by mouth at bedtime [...] take 1 tablet by mouth once daily Clopidogrel 75 mg tablet Active 75 mg PO DAILY March 22, 2022 12:00am Comment on above: Take 75 mg by [...] Active docusate sodium 100 mg oral capsule (20 sources) Start: 07-29-2024 take 1 capsule by mouth twice daily Docusate Sodium (DSS) 100 MG CAPS Take 100 mg by mouth 2 times daily. 07/29/2024 Active esomeprazole 40 mg delayed release oral capsule (20 sources) Proton Pump Inhibitor Start: 04-25-2019 End: [...] mouth daily. 90 Tablet 3 11/17/2024 Active furosemide 40 mg oral tablet (2 sources) Loop Diuretic Start: 03-05-2025 take 1 tablet by mouth once daily Furosemide (Lasix) 40 mg tablet Active 40 mg PO DAILY March 05, 2025 12:00am 1 daily for 5 to 7 days for water retention Start: 10-24-2024 End: 10-24-2024 take 1 dose intravenously once 20 mg, Intravenous Push , ONCE, 1 dose, On Wed10/24/24 at 2130 indomethacin 25 mg oral capsule (14 sources) Nonsteroidal Anti-inflammatory Drug Start: 12-07-2024 take [...] take 1 tablet by mouth once daily Lisinopril 2.5 mg tablet Active 2.5 mg PO DAILY March 22, 2022 12:00am montelukast 10 mg oral tablet (20 sources) [...] Active Pediatric Multivitamins-Iron (Cerovite Jr) chew tab (20 sources) Start: 5 take 1 tablet by mouth once daily in the evening Pediatric Multivitamins-Iron (Cerovite Jr) chew tab Take 1 Tablet by mouth daily. 30 Tablet 2 10/26/2024 1:23 PM EDT 10/27/2024 Active perflutren lipid microspheres 1.3 mL in NaCl (PF) 0.9% 10 mL injection (DEFINITY) (1 source) Start: End: 4 perflutren lipid microspheres 1.3 mL in NaCl (PF) 0.9% 10 mL injection (DEFINITY) potassium chloride 10 meq extended release oral tablet (1 source) Start: 5 Potassium Chloride (Klor-Con 10) 10 mEq tablet extended release Active 20 meq PO DAILY 14 March 05, 2025 12:00am Take 2 tabs once a day while taking furosemide for water retention predniSONE 20 mg oral tablet (20 sources) Start: 5 Prednisone 20 mg Tablet Active 20 mg PO TWICE DAILY WITH MEALS 10 March 05, 2025 12:00am 1 twice a day for 5 days starting 03/06/2025 then stop the medication Start: 11-17-2024 End: 01-16-2025 take 1 tablet by mouth twice daily [...] 0900, Last dose on Wed10/29/24 at 0900 Start: 01-17-2024 End: 04-06-2024 take [...] Start: 08-27-2014 take 2 tablets by mo [facility] once daily predniSONE (DELTASONE) 20 mg tablet Indications: Acute bronchitis Take 2 tablet by mouth daily for 5 days. 10 tablet 0 08/27/2014 Active Comment on above: Take 2 tablet by [facility] daily for 5 days. Take 1 tablet by [facility] as directed. TID for 4 days [...] on Wed10/24/24 at 2100, Last dose on Kiya 10/26/24 at 0900 Start: 12-02-2023 End: 04-06-2024 take [...] daily. 180 Each 3 11/17/2024 11/17/2025 Active Umeclidinium-Vilante rol (Anoro Ellipta) 62.5-25 mcg/actuation blister with device (1 source) Start: 02-26-2025 Umeclidinium-V woody terol (Anoro Ellipta) 62.5-25 mcg/actuation blister with device Active 1 NMA INHALATION DAILY February 26, 2025 12:00am Umeclidinium-Vilante rol [Umeclidinium 62.5 Mcg-Vilanterol 25 Mcg/Actuation Powdr For Inhalation] (Umeclidinium 62.5 Mcg-Vilanterol 25 Mcg/Actuation Powdr ) 62.5-25 mcg/actuation blister with device (1 source) Start: 02-26-2025 Umeclidinium-V woody terol [Umeclidinium 62.5 Mcg-Vilanterol 25 Mcg/Actuation Powdr For Inhalation] (Umeclidinium 62.5 Mcg-Vilanterol 25 Mcg/Actuation Powdr ) 62.5-25 mcg/actuation blister with device Active 1 NMA INHALATION DAILY February 26, 2025 12:00am varenicline 1 mg oral tablet (20 sources) [...] for 23 days. Take 1 tablet by [facility] two times a day. Patient should [...] Oral, EVERY 4 HOURS PRN, Starting on 10/24/24 at 1947, Until Discontinued, Mild Pain (pain score 1,2,3) Start: 07-29-2024 take 2 tablets by mo uth every six hours acetaminophen (TYLENOL) 325 mg tablet Take 650 mg by mouth every 6 hours. 07/29/2024 Active Start: 06-24-2017 take 1000 mg by mout h every eight hours Acetaminophen Active 1000 MG PO EVERY 8 HOURS 90 June 24, 2017 1:00am Start: 06-08-2017 End: 06-24-2017 Acetaminophen (Tylenol Extra Strength) 500 MG tablet Discontinued 2 {tbl} PO TWICE A DAY June 08, 2017 1:00am June 24, 2017 12:29pm PAIN Start: 06-08-2017 End: 06-24-2017 take 2 tablets by mouth twice daily Acetaminophen (Tylenol Extra Strength) 500 MG tablet Discontinued 2 TABLET PO TWICE A DAY June 08, 2017 1:00am June 24, 2017 12:29pm acetaminophen 325 mg / HYDROcodone bitartrate 5 mg oral tablet (6 sources) Opioid Agonist Start: 03-22-2022 End: 02-26-2025 Hydrocodone-Acetaminophen 5- 325 mg tablet Discontinued 1 {tbl} PO EVERY 6 HOURS NEEDED as needed for Pain 12 March 22, 2022 February 26, 2025 11:48pm Fracture of triquetrum of right wrist Start: 03-22-2022 take 1 tablet by shahla th every six hours as needed Hydrocodone-Acetaminophen Active 1 TABLE T PO EVERY 6 HOURS NEEDED 06 20March 22, 2022 budesonide 0.25 mg/ml inhalation suspension (20 sources) [...] Start: 06-19-2024 take 2 puff(s) by mo ut twice daily BREZTRI AEROSPHERE 160-9-4.8 mcg/actuation HFA [...] a day. 3 Each 3 11/11/2023 Active 12 hr guaiFENesin 600 mg extended release [...] cold med meloxicam 15 mg oral tablet (8 sources) Nonsteroidal Anti-inflammatory Drug Start: 2016 End: 2016 take 1 tablet by mouth once daily Meloxicam 15 MG tablet Discontinued 15 mg PO DAILY June 08, 2017 1:00am June [...] at 0830, Until Discontinued polyethylene glycol 3350 82321 mg powder for oral solution (7 sources) Osmotic Laxative Start: 5 17 g, Oral, DAILY, First dose on Wed10/24/24 at 2030, Until Discontinued Start: 07-29-2024 polyethylene g lycol 3350 17 gram packet Take 1 Packet by mouth once daily as needed. Dissolve dose in 4 - 8 ounces of liquid and take as directed. 07/29/2024 Active sennosides, snf 8.6 mg oral tablet (1 source) Start: [...] [Alcohol abuse, uncomplicated] Onset: 12-01-2023 04-23-2019 Chronic Aspiration pneumonitis; food/vomitus (4 sources) Aspiration pneumonia; Translations: [Pneumonitis due to inhalation of food and vomit] Onset: 03-07-2025 02-27-2025 Episodic Asthma (20 sources) Severe persistent asthma; Translations: [Severe persistent asthma, uncomplicated] Onset: 11-11-2023 11-11-2023 Chronic Blindness and vision defects (9 sources) Diplopia; Translations: [Diplopia] 04-23-2019 Episodic Chronic obstructive pulmonary disease and bronchiectasis (20 sources) Chronic bronchitis; Translations: [Unspecified chronic bronchitis] Onset: 08-20-2023 Resolved: 12-01-2023 08-20-2023 Chronic Conduction disorders (15 sources) Right bundle branch block; Translations: [Unspecified right bundle-branch block] Onset: 07-14-2024 07-14-2024 Chronic Diseases of white blood cells (6 sources) Leukocytosis; Translations: [Elevated white blood cell count, unspecified] Onset: 03-07-2025 02-27-2025 Chronic Disorders of lipid metabolism (15 sources) Hyperlipidemia; Translations: [Hyperlipidemia, unspecified] Onset: 07-10-2024 07-10-2024 Chronic E Codes: Fall (6 sources) Fall; Translations: [Unspecified fall, initial encounter] 03-30-2022 Episodic Esophageal disorders (20 sources) Gastroesophageal reflux disease; Translations: [Gastro-esophageal reflux disease without esophagitis] Onset: 07-10-2024 03-22-2022 Chronic Essential hypertension (15 sources) Hypertensive disorder; Translations: [Essential (primary) hypertension] Onset: 07-10-2024 07-10-2024 Chronic Fever of unknown origin (6 sources) Fever; Translations: [Fever, unspecified] Onset: 03-07-2025 02-27-2025 Episodic Fluid and electrolyte disorders (20 sources) Hyponatremia; Translations: [Hypo-osmolality and hyponatremia] Onset: 12-01-2023 12-01-2023 Episodic Fracture of upper limb (6 sources) Fracture of triquetral bone of wrist; Translations: [Displaced fracture of triquetrum [cuneiform] bone, right wrist, initial encounter for closed fracture] 03-30-2022 Episodic Other connective tissue disease (8 sources) Neurological symptom; Translations: [Unspecified symptoms and signs involving the nervous system] 04-23-2019 Episodic Other connective tissue disease (6 sources) Hand pain; Translations: [Pain in right hand] 03-30-2022 Episodic Other connective tissue disease (6 sources) Swelling of hand; Translations: [Other specified soft tissue disorders] 03-30-2022 Episodic Other injuries and conditions due to external causes (1 source) Systemic inflammatory response syndrome; Translations: [Systemic inflammatory response syndrome (SIRS) of non-infectious origin without acute organ dysfunction] 02-27-2025 Episodic Other lower respiratory disease (1 source) [...] sciatica laterality unspecified] Onset: 02-24-2024 Chronic Other nervous system disorders (2 sources) Metabolic encephalopathy; Translations: [Metabolic encephalopathy] 02-27-2025 Chronic Other nervous system disorders (2 sources) Metabolic encephalopathy; Translations: [Metabolic encephalopathy] Onset: 03-07-2025 Chronic Other nutritional; endocrine; and metabolic disorders [...] Chronic Other nutritional; endocrine; and metabolic disorders (5 sources) Body mass index 30+ - obesity; Translations: [Body mass index (BMI) 39.0-39.9, adult] 01-08-2025 Chronic Other nutritional; endocrine; and metabolic disorders (2 sources) Obesity, unspecified; Translations: [Obesity, unspecified] Onset: 03-07-2025 Chronic Other screening for suspected conditions (not [...] lung] Onset: 10-24-2024 Episodic Residual codes; unclassified (20 sources) Tobacco user; Translations: [Tobacco use] Onset: 07-14-2024 04-23-2019 Episodic Residual codes; unclassified (2 sources) Other specified postprocedural states; Translations: [S/P lumbar laminectomy] Onset: 08-10-2024 Episodic Residual codes; unclassified (1 source) Left against medical advice; Translations: [Procedure and treatment not carried out because of patient's decision for other reasons] 12-02-2024 Episodic Residual codes; unclassified (4 sources) Altered mental status; Translations: [Altered mental status, unspecified] 02-27-2025 Episodic Residual codes; unclassified (2 sources) Altered mental status, unspecified; Translations: [Altered mental status, unspecified] Onset: 03-07-2025 Episodic Residual codes; unclassified (2 sources) Tobacco use; Translations: [Tobacco use] Onset: 03-07-2025 Episodic Respiratory failure; insufficiency; arrest (adult) (1 source) Chronic hypoxemic respiratory failure; Translations: [Chronic respiratory failure with hypoxia] 10-26-2024 Chronic Respiratory failure; insufficiency; arrest (adult) (4 sources) Acute respiratory failure; Translations: [Acute respiratory failure with hypoxia] Onset: 03-07-2025 03-01-2025 Episodic Septicemia (except in labor) (6 sources) Sepsis; Translations: [Sepsis, unspecified organism] Onset: 03-07-2025 02-27-2025 Episodic Spondylosis; intervertebral disc disorders; other back problems (12 sources) Lumbar spondylosis; Translations: [Spondylosis without myelopathy or radiculopathy, lumbar region] Onset: 02-24-2024 09-23-2023 Chronic Substance-related disorders (20 sources) Tobacco [...] Problem Classification Problem Date Documented Date Episodic/Chronic Genitourinary symptoms and ill-defined conditions (2 sources) Abnormal urine; Translations: [Other abnormal findings in urine] Onset: 07-14-2024 07-14-2024 Episodic Headache; including migraine (14 sources) Headache; Translations: [Nonintractable headache, unspecified chronicity pattern, unspecified headache type] Onset: 12-07-2024 12-02-2024 Episodic Other lower respiratory disease (20 sources) [...] Onset: 12-01-2023 12-01-2023 Episodic Residual codes; unclassified (5 sources) History of lumbar laminectomy; Translations: [Other specified postprocedural states] Onset: 09-12-2024 08-10-2024 Episodic Spondylosis; intervertebral disc disorders; other back problems (20 sources) Chronic low back pain; Translations: [Lumbago with sciatica, unspecified side] Onset: 12-01-2023 09-23-2023 Episodic Results Test Name Value Interpretation Reference Range Facility Telephone Encounteron 2024 [employer] Authentication Interface Message Text Situation: Greta from [facility] calling Background: pt was admitted and had screening visit today Assessment: caller requesting clarification of Lisinopril. Has been taking Lisinopril 2.5. has not picked up ordered Lisinopril 10 mg yet. Current BP 154.80 Recommendation: caller advised last order was for Lisinopril 10 mg daily Caller states Elis will receive 2 nursing visits on week 1 Then one nursing visit x 3 week. No further questions Greta can be reached at [phone] Normal [email or web address] Telephone Encounteron 2024 Edge [employer] Authentication Interface Message Text Mi was contacted and informed that STEVE Sanders agrees to follow this pt for home care. Normal [email or web address] Edge [employer] Authentication Interface Message Text Yes I am Normal [email or web address] Edge [employer] Authentication Interface Message Text Situation: Mi calling from [facility]. They are schedule to start home car services tomorrow for SN/PT/OT and speech therapies Background: pt recently was hospitalized for aspiration pneumonia, resp failure and sepsis Assessment: - Recommendation: asking is you's be willing to follow this patient. They can be reached at [phone]. Normal [email or web address] Culture, Blood (WB)on 2024 CUB Blood cultures x2, from two different sites No growth in 5 days. Normal [facility] Comment on above: Performed By: #### L 100.0500, L500.2500 #### [facility] [address] [place], [address] Discharge Instructionon 02-16 Discharge Instruction [facility] Medical Records Department [address] [place] [address] Instructions for Home/Discharge Instructions 03/05/25 1620 MR#: [id number] Acct: [id number] Name: ELIS BILLS Rep #: [id number] : 1960 64 From: Antonio Parker DO PCP: Anna Sanders PA-C Status:ADM IN Discharge Instructions DC O2, CPAP, BIPAP needs Home O2 Discharge instructions: No Dressing / Incision Discharge Activity: Return to Normal Activity Weight Bearing Status: Full weight bearing Follow Up Care Test Results: Test results from this visit will be discussed in further detail at your follow-up appointment, if applicable. Discharge Plan Admission Admit Date/Time: 02/27/25 00:37 Primary Reason for Your Visit: Aspiration pneumonia Attending Provider: Antonio Parker Primary Care Provider: Anna Sanders Consulting Providers: Mechelle Maya; Maira Yeh; Armani Tolbert; Pilar Gannon Discharge Orders/Prescriptions Prescriptions: New prednisone 20 mg Tablet 20 mg PO BIDCM Qty: 10 0RF Rx Instructions: 1 twice a day for 5 days starting 03/06/2025 then stop the medication furosemide [Lasix] 40 mg tablet 40 mg PO DAILY Qty: 7 0RF Rx Instructions: 1 daily for 5 to 7 days for water retention potassium chloride [Klor-Con 10] 10 mEq tablet extended release 20 meq PO DAILY Qty: 14 0RF Rx Instructions: Take 2 tabs once a day while taking furosemide for water retention Continued atorvastatin 80 mg tablet 80 mg PO DAILY clopidogrel 75 mg tablet 75 mg PO DAILY lisinopril 2.5 mg tablet 2.5 mg PO DAILY ipratropium-albuterol 0.5 mg-3 mg(2.5 mg base)/3 mL solution for nebulization 3 ml continuous nebulization Q4H PRN PRN (Reason: wheezing) esomeprazole magnesium 40 mg capsule,delayed release(DR/EC) 40 mg PO DAILY folic acid 1 mg tablet 1 mg PO DAILY thiamine HCl (vitamin B1) 100 mg tablet 100 mg PO DAILY umeclidinium-vilanter ol [Anoro Ellipta] 62.5-25 mcg/actuation blister with device 1 ea INHALATION DAILY montelukast 10 mg tablet 10 mg PO DAILY Referrals / Follow Up: Pilar Lanza DO [Non-Staff] - Anna Sanders PA-C [Primary Care Provider] - Within 2 Weeks Disposition Disposition (needs filled in before D/C Order can be placed): Home Health Service 03/05/25 1626 Antonio Parker DO CC: STEVE Sanders; Dr. Armani Tolbert DO; Dr. Mechelle Maya DO; Dr. Maira Yeh MD; Dr. Pilar Gannon MD Signed Normal [facility] Culture, Blood (WB)on 2024 CUB Blood cultures x2, from two different sites No growth in 5 days. Normal [facility] Comment on above: Performed By: #### L 503.7507, L501.5200, L501.2300 #### [facility] [address] [place], [address] Anion gap in Serum or Plasma Ordered By: Armani Tolbert on 03-03-2025 Anion gap [Moles/Vol] 9 mmol/L 5-15 [facility] BUN/creatinine ratioOrdered By: Armani Tolbert on 03-03-2025 Urea nitrogen/Creatinine [Mass ratio] 29.9 mg/mg High 10-20 [facility] Basic Metabolic Profile (BMP )on 03-03-2025 BUN/CRE 29.9 RATIO High 10-20 [facility] Comment on above: Performed By: #### L 100.0500, L500.2500 #### [facility] [address] [place], [address] Calcium [Mass/Vol] 8.6 mg/dL Normal 7.6-11.[address] [facility] Comment on above: Performed By: #### L 100.0500, L500.2500 #### [facility] [address] [place], [address] Chloride [Moles/Vol] 111 mmol/L High 98-108 [facility] Comment on above: Performed By: #### L 100.0500, L500.2500 #### [facility] [address] [place], [address] CO2 [Moles/Vol] 22.7 mmol/L Normal 21.0-32.0 [facility] Comment on above: Performed By: #### L 100.0500, L500.2500 #### [facility] [address] [place], [address] Creatinine [Mass/Vol] 0.86 mg/dL Normal 0.70-1.20 [facility] Comment on above: Performed By: #### L 100.0500, L500.2500 #### [facility] [address] [place], [address] ECRCL 111.12 ml/min Normal 50-250 [facility] Comment on above: Performed By: #### L 100.0500, L500.2500 #### [facility] [address] [place], [address] GAP 9 Normal 5-15 [facility] Comment on above: Performed By: #### L 100.0500, L500.2500 #### [facility] [address] [place], [address] GFR/1.73 sq M.predicted among non-blacks MDRD (S/P/Bld) [Vol rate/Area] 96 mL/min/{1.73_m2} Normal >60 [facility] Comment on above: Result Comment: mL/m in/1.73m2 CKD-EPI Creatinine Equation (2020) Performed By: #### L 100.0500, L500.2500 #### [facility] [address] [place], [address] Glucose [Mass/Vol] 134 mg/dL High 70-[address] [facility] Comment on above: Performed By: #### L 100.0500, L500.2500 #### [facility] [address] [place], [address] Potassium [Moles/Vol] 4.2 mmol/L Normal 3.3-5.1 [facility] Comment on above: Performed By: #### L 100.0500, L500.2500 #### [facility] [address] [place], [address] Sodium [Moles/Vol] 142 mmol/L Normal 133-[address] [facility] Comment on above: Performed By: #### L 100.0500, L500.2500 #### [facility] [address] [place], [address] Urea nitrogen [Mass/Vol] 26 mg/dL High 4-19 [facility] Comment on above: Performed By: #### L 100.0500, L500.2500 #### [facility] [address] [place], [address] CBC-Complete Blood Cnt No Di jessicaon 03-03-2025 Erythrocyte distribution width (RBC) [Ratio] 14.9 % High 11.6-14.6 [facility] Comment on above: Performed By: #### L 100.0500, L500.2500 #### [facility] [address] [place], [address] Hematocrit (Bld) [Volume fraction] 33.9 % Low 40-54 [facility] Comment on above: Performed By: #### L 100.0500, L500.2500 #### [facility] [address] [place], [address] Hemoglobin (Bld) [Mass/Vol] 11.1 g/dL Low 13.0-16.5 [facility] Comment on above: Performed By: #### L 100.0500, L500.2500 #### [facility] [address] [place], [address] MCH (RBC) [Entitic mass] 29.1 pg Normal 27.0-32.0 [facility] Comment on above: Performed By: #### L 100.0500, L500.2500 #### [facility] [address] [place], [address] MCHC (RBC) [Mass/Vol] 32.7 g/dL Normal 32-36 [facility] Comment on above: Performed By: #### L 100.0500, L500.2500 #### [facility] [address] [place], [address] MCV (RBC) [Entitic vol] 88.7 fL Normal 80-94 [facility] Comment on above: Performed By: #### L 100.0500, L500.2500 #### [facility] [address] [place], [address] Platelet mean volume (Bld) [Entitic vol] 10.0 fL Normal 6.2-12.0 [facility] Comment on above: Performed By: #### L 100.0500, L500.2500 #### [facility] [address] [place], [address] Platelets (Bld) [#/Vol] 318 10*3/uL Normal 150-450 [facility] Comment on above: Performed By: #### L 100.0500, L500.2500 #### [facility] [address] [place], [address] RBC (Bld) [#/Vol] 3.82 10*6/uL Low 4.6-6.2 [facility] Comment on above: Performed By: #### L 100.0500, L500.2500 #### [facility] [address] [place], [address] RDW SD 48.5 fl High 35.1-43.9 [facility] Comment on above: Performed By: #### L 100.0500, L500.2500 #### [facility] [address] [place], [address] WBC (Bld) [#/Vol] 10.7 10*3/uL Normal 4.4-11.0 [facility] Comment on above: Performed By: #### L 100.0500, L500.2500 #### [facility] [address] [place], [address] Carbon dioxide, total [Moles /volume] in Central venous bloodOrdered By: Armani Tolbert on 03-03-2025 CO2 [Moles/Vol] 22.7 mmol/L 21.0-32.0 [facility] Chloride assayOrdered By: Hunter Tolbert on 03-03-2025 Chloride [Moles/Vol] 111 mmol/L High 98-108 [facility] Erythrocyte distribution wid th ratioOrdered By: Armani Tolbert on 03-03-2025 Erythrocyte distribution width (RBC) [Ratio] 14.9 % High 11.6-14.6 [facility] Erythrocyte distribution wid th standard deviationOrdered By: Armani Tolbert on 03-03-2025 Erythrocyte distribution width (RBC) [Ratio] 48.5 fl High 35.1-43.9 [facility] Glomerular filtration rate ( GFR) estimation/1.73 sq m using serum, plasma, or whole bOrdered By: Armani Tolbert on 03-03-2025 GFR/1.73 sq M.predicted among non-blacks MDRD (S/P/Bld) [Vol rate/Area] 96 mL/min/{1.73_m2} >60 [facility] Comment on above: mL/min/1.73m2 CKD-EP I Creatinine Equation (2020) Hematocrit Auto (Bld) [Volum e fraction]Ordered By: Armani Tolbert on 03-03-2025 Hematocrit (Bld) [Volume fraction] 33.9 % Low 40-54 [facility] Hemoglobin measurementOrdere d By: Armani Tolbert on 03-03-2025 Hemoglobin (Bld) [Mass/Vol] 11.1 g/dL Low 13.0-16.5 [facility] MCV (mean corpuscular volume ) determinationOrdered By: Armani Tolbert on 03-03-2025 MCV (RBC) [Entitic vol] 88.7 fL 80-94 [facility] Mean corpuscular hemoglobin (MCH) determinationOrdered By: Armani Tolbert on 03-03-2025 MCH (RBC) [Entitic mass] 29.1 pg 27.0-32.0 [facility] Mean corpuscular hemoglobin concentration (MCHC) determinationOrdered By: Armani Tolbert on 03-03-2025 MCHC (RBC) [Mass/Vol] 32.7 g/dL 32-36 [facility] Mean platelet volume determi nationOrdered By: Armani Tolbert on 03-03-2025 Platelet mean volume (Bld) [Entitic vol] 10.0 fL 6.2-12.0 [facility] Platelet countOrdered By: Hunter Tolbert on 03-03-2025 Platelets (Bld) [#/Vol] 318 10*3/uL 150-450 [facility] Potassium measurement (mass/ volume)Ordered By: Armani Tolbert on 03-03-2025 Potassium (Unsp spec) [Mass/Vol] 4.2 mmol/L 3.3-5.1 [facility] RBC Auto (Bld) [#/Vol]Ordere d By: Armani Tolbert on 03-03-2025 RBC (Bld) [#/Vol] 3.82 10*6/uL Low 4.6-6.2 [facility] Serum creatinine measurement (mass/volume)Ordered By: Armani Tolbert on 03-03-2025 Creatinine [Mass/Vol] 0.86 mg/dL 0.70-1.20 [facility] Serum glucose measurement (m ass/volume)Ordered By: Armani Tolbert on 03-03-2025 Glucose [Mass/Vol] 134 mg/dL High 70-[address] [facility] Serum or plasma calcium sidra urement (mass/volume)Ordered By: Armani Tolbert on 03-03-2025 Calcium [Mass/Vol] 8.6 mg/dL 7.6-11.[address] [facility] Serum or plasma urea nitroge n measurement (mass/volume)Ordered By: Armani Tolbert on 03-03-2025 Urea nitrogen [Mass/Vol] 26 mg/dL High 4-19 [facility] Sodium levelOrdered By: Chang Tolbert on 03-03-2025 Sodium [Moles/Vol] 142 mmol/L 133-[address] [facility] White blood cell (WBC) count Ordered By: Armani Tolbert on 03-03-2025 WBC (Bld) [#/Vol] 10.7 10*3/uL 4.4-11.0 [facility] Basic Metabolic Profile (BMP )on 03-02-2025 BUN/CRE 20.9 RATIO High 10-20 [facility] Comment on above: Performed By: #### L 100.0500, L500.2500 #### [facility] [address] [place], [address] Calcium [Mass/Vol] 8.4 mg/dL Normal 7.6-11.[address] [facility] Comment on above: Performed By: #### L 100.0500, L500.2500 #### [facility] [address] [place], [address] Chloride [Moles/Vol] 106 mmol/L Normal 98-108 [facility] Comment on above: Performed By: #### L 100.0500, L500.2500 #### [facility] [address] [place], [address] CO2 [Moles/Vol] 18.4 mmol/L Low 21.0-32.0 [facility] Comment on above: Performed By: #### L 100.0500, L500.2500 #### [facility] [address] [place], [address] Creatinine [Mass/Vol] 1.03 mg/dL Normal 0.70-1.20 [facility] Comment on above: Performed By: #### L 100.0500, L500.2500 #### [facility] [address] [place], [address] ECRCL 93.47 ml/min Normal 50-250 [facility] Comment on above: Performed By: #### L 100.0500, L500.2500 #### [facility] [address] [place], [address] GAP 12 Normal 5-15 [facility] Comment on above: Performed By: #### L 100.0500, L500.2500 #### [facility] [address] [place], [address] GFR/1.73 sq M.predicted among non-blacks MDRD (S/P/Bld) [Vol rate/Area] 81 mL/min/{1.73_m2} Normal >60 [facility] Comment on above: Result Comment: mL/m in/1.73m2 CKD-EPI Creatinine Equation (2020) Performed By: #### L 100.0500, L500.2500 #### [facility] [address] [place], [address] Glucose [Mass/Vol] 123 mg/dL High 70-[address] [facility] Comment on above: Performed By: #### L 100.0500, L500.2500 #### [facility] [address] [place], [address] Potassium [Moles/Vol] 4.3 mmol/L Normal 3.3-5.1 [facility] Comment on above: Performed By: #### L 100.0500, L500.2500 #### [facility] [address] [place], [address] Sodium [Moles/Vol] 137 mmol/L Normal 133-[address] [facility] Comment on above: Performed By: #### L 100.0500, L500.2500 #### [facility] [address] [place], [address] Urea nitrogen [Mass/Vol] 22 mg/dL High 4-19 [facility] Comment on above: Performed By: #### L 100.0500, L500.2500 #### [facility] [address] [place], [address] CBC-Complete Blood Cnt No ffon 03-02-2025 Erythrocyte distribution width (RBC) [Ratio] 14.9 % High 11.6-14.6 [facility] Comment on above: Performed By: #### L 100.0500, L500.2500 #### [facility] [address] [place], [address] Hematocrit (Bld) [Volume fraction] 34.8 % Low 40-54 [facility] Comment on above: Performed By: #### L 100.0500, L500.2500 #### [facility] [address] [place], [address] Hemoglobin (Bld) [Mass/Vol] 11.3 g/dL Low 13.0-16.5 [facility] Comment on above: Performed By: #### L 100.0500, L500.2500 #### [facility] [address] [place], [address] MCH (RBC) [Entitic mass] 29.2 pg Normal 27.0-32.0 [facility] Comment on above: Performed By: #### L 100.0500, L500.2500 #### [facility] [address] [place], [address] MCHC (RBC) [Mass/Vol] 32.5 g/dL Normal 32-36 [facility] Comment on above: Performed By: #### L 100.0500, L500.2500 #### [facility] [address] [place], [address] MCV (RBC) [Entitic vol] 89.9 fL Normal 80-94 [facility] Comment on above: Performed By: #### L 100.0500, L500.2500 #### [facility] [address] [place], [address] Platelet mean volume (Bld) [Entitic vol] 9.8 fL Normal 6.2-12.0 [facility] Comment on above: Performed By: #### L 100.0500, L500.2500 #### [facility] [address] [place], [address] Platelets (Bld) [#/Vol] 274 10*3/uL Normal 150-450 [facility] Comment on above: Performed By: #### L 100.0500, L500.2500 #### [facility] [address] [place], [address] RBC (Bld) [#/Vol] 3.87 10*6/uL Low 4.6-6.2 [facility] Comment on above: Performed By: #### L 100.0500, L500.2500 #### [facility] [address] [place], [address] RDW SD 48.7 fl High 35.1-43.9 [facility] Comment on above: Performed By: #### L 100.0500, L500.2500 #### [facility] [address] [place], [address] WBC (Bld) [#/Vol] 13.9 10*3/uL High 4.4-11.0 [facility] Comment on above: Performed By: #### L 100.0500, L500.2500 #### [facility] [address] [place], [address] Modified Barium Swallow Stud yon 03-02-2025 Modified Barium Swallow Study [facility] [address] [place] [address] Modified Barium Swallow Study MR#: [id number] Acct: [id number] Name: ELIS BILLS Rep #: [id number] : 1960 64 From: Kip Rodriguez M.A., [facility] Modified Barium Swallow Patient Information Study Date: 03/02/25 Study Time: 10:23 Direct Billable Minutes: 116 Total Minutes procedure reportin Diagnosis: Aspiration PNA J18.9 Referring Physician: Armani Tolbert Reason for Referral: Assess swallow function, assess risk for aspiration, and determine recommendations for least restrictive diet textures and compensatory strategies to improve safety of swallow. Medical History: Per physician H P, ???past medical history of essential hypertension; on lisinopril, hyperlipidemia; on atorvastatin, obesity; with BMI of 38.7 this admission, history of tobacco abuse; with subsequent asthma/COPD on umeclidinium-vilanter ol, ipratropium-albuterol q. 4 hours prn plus montelukast, history of EtOH abuse; with patient admitted to drinking 8-9 beers daily on folate and thiamine supplementation, GERD; on esomeprazole and OA; with spinal stenosis of the lumbar region (without claudication).??? Patient presented to [facility] ED 02/27/2025 w/ AMS. Per , pt fell day before admission. He wasn???t acting normally beginning the evening of February 26, 2025. He reported complaints of knee pain at home, as well. activated EMS due to confusion. Pt had fever and cough w/ CT scan of the chest revealing RLL Pneumonia. 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 After further work up, he was admitted to ICU for ongoing care. He was referred for ST dysphagia evaluation following aspiration episode with watermelon and was made strict NPO until evaluation. BSE recommended NPO w/ sips and chips; however, respiratory status worsened 03/01/2025 and he was made strict NPO. [facility] re-assessed pt at bedside today and recommended MBSS today if pt was able to be weaned to nasal cannula from [employer]. Pt was weaned to nasal cannula and cleared by physician for participation in MBSS. Current Diet Ordered: NPO, ok for meds whole in Dentition: Natural Teeth and Missing Teeth Mental Status: Impaired (Confusion) Respiratory Status: Oxygenating on 4L/M nasal cannula (6L via NC) Penetration-Aspiratio n Scale Penetration-Aspiratio n Scale: OBJECTIVE ASSESSMENT OF SWALLOW FUNCTION (QUANTITATIVE ??? PER TRIAL): PENETRATION / ASPIRATION SCALE (FLOWERS): 1 = does not enter airway 2 = enters airway/above vocal folds/ejected 3 = enters airway/above vocal folds/not ejected 4 = enters airway/contacts vocal folds/ejected 5 = enters airway/contacts vocal folds/not ejected 6 = enters airway/below vocal folds/ejected 7 = enters airway/below vocal folds/not ejected despite effort 8 = enters airway/below vocal folds/no effort VIDEOFLOROSCOPIC SCALE SCORE (FLOWERS): Grade I = aspiration of material that has penetrated into the laryngeal vestibule, intact cough reflex Grade II = aspiration < 10 % of the bolus, intact cough reflex Grade III = aspiration of < 10 % of the bolus, reduced cough reflex or aspiration of > 10 % of the bolus, intact cough reflex Grade IV = aspiration of > 10 % of the bolus, reduced cough reflex Penetration-Aspiratio n Scale Score Thin Liquid via teaspoon: Result: 1= does not enter airway Thin Liquid via teaspoon Trial 2: Result: 1= does not enter airway Thin Liquid via small single sip: cup: Result: 2= enter airway/above vocal folds/ejected Enlow Thick Liquid via sequential sips: cup: Result: 7= enters airways/below vocal folds/not ejected despite effort Comment: Attempted esophageal screen; however, unable to clearly view esophagus due to pt's body habitus. Pudding via teaspoon: Result: 1= does not enter airway 1/2 Cookie: Result: 1= does not enter airway Comment: Per RN, Keith, pt's SpO2 dropped from 96% to 87% while chewing. Once chewing stopped, SpO2 returned to mid 90s. Thin Liquid via single sip: straw: Result: 2= enter airway/above vocal folds/ejected Comment: Large sip Thin Liquid via single sip: straw Trial 2: Result: 5= enters airways/contacts vocal folds/not ejected Comment: Mod-max verbal cues for small sip Thin Liquid via teaspoon Trial 3: Result: 2= enter airway/above vocal folds/ejected Thin Liquid via teaspoon Trial 4: Result: 1= does not enter airway Oral Phase Labial Seal: Interlabial escape, no progression to anterior lip Tongue Control During Bolus Hold: Posterior escape of greater than half of bolus Bolus Preparation/Masticati on: Disorganized chewing/mashing with solid pieces of bolus unchewed (Posterior loss to the pyriform sinuses) Bolus Transport/Lingual Motion: Slowed tongue motion Oral Residue: Residue collection on oral structures Pharyngeal Phase Initiation of Pharyngeal Swallow: Bolus head in pyriform (more content not included)... Normal [facility] Trough vancomycin levelOrder ed By: Maira Yeh on 03-02-2025 Vancomycin trough [Mass/Vol] 21.3 ug/mL High 5.0-15.0 [facility] Comment on above: Recommended goal tro ugh ranges are generally 10-15 mcg/ml for less severe/complicated infections such as cellulitis or UTI and 15-20 mcg/ml for more severe/complicated infections such as bacteremia/sepsis, osteomyelitis, pneumonia or meningitis. Goal trough ranges should take into account indication, patient-specific factors and organism VAL.VANCOMYCIN STANDARED DRUG THERAPY TROUGH LEVEL: 5.0 - 15.0 mg/L VANCOMYCIN HIGH INTENSITY THERAPY TROUGH LEVEL: 15.0 - 20.0 mg/L High Intensity therapy recommended for serious lifethreatening infections include:- Mapdtpfisz-Hzzvbhbxtlwh-Rladrlhbm (Ventilator/Healtcare Associated)-Sepsis PLEASE CONTACT PHARMACY SERVICES (#[id number]) FOR INTERPRETATIONOF RESULTS. Vancomycin, Trough Levelon 0 03-02-2025 VANCO, TROUGH 21.3 ug/mL High 5.0-15.0 [facility] Comment on above: Order Comment: Comme nts: Trough to be drawn 30 mins prior to scheduled [id number] Result Comment: Alexandro mmended goal trough ranges are generally 10-15 mcg/ml for less severe/complicated infections such as cellulitis or UTI and 15-20 mcg/ml for more severe/complicated infections such as bacteremia/sepsis, osteomyelitis, pneumonia or meningitis. Goal trough ranges should take into account indication, patient-specific factors and organism VAL. VANCOMYCIN STANDARED DRUG THERAPY TROUGH LEVEL: 5.0 - 15.0 mg/L VANCOMYCIN HIGH INTENSITY THERAPY TROUGH LEVEL: 15.0 - 20.0 mg/L High Intensity therapy recommended for serious life threatening infections include: - Meningitis -Endocarditis -Pneumonia (Ventilator/Healtcare Associated) -Sepsis PLEASE CONTACT PHARMACY SERVICES (#[id number]) FOR INTERPRETATION OF RESULTS. Performed By: #### L 503.7505, L501.5200, L501.2300 #### [facility] [address] [place], [place], [address] Absolute lymphocyte countOrd ered By: Maira Yeh on 03-01-2025 Lymphocytes Auto (Unsp spec) [#/Vol] 1.09 10*3/uL 0.83-4.51 [facility] Absolute neutrophil countOrd ered By: Maira Yeh on 03-01-2025 Neutrophils (Bld) [#/Vol] 10.7 10*3/uL High 2.0-7.7 [facility] Assessment of wrist artery p atency prior to arterial punctureOrdered By: Armani Tolbert on 03-01-2025 Arterial patency Wrist artery --pre arterial puncture Positive [facility] Automated lymphocyte count a s percentage of total leukocytesOrdered By: Maira Yeh on 03-01-2025 Lymphocytes/100 WBC Auto (Unsp spec) 8.4 % Low 19-41 [facility] Basic Metabolic Profile (BMP )on 03-01-2025 BUN/CRE 16.7 RATIO Normal 10-20 [facility] Comment on above: Performed By: #### M 100.638 #### [facility] [address] [place], [address] Calcium [Mass/Vol] 7.6 mg/dL Normal 7.6-11.[address] [facility] Comment on above: Performed By: #### M 100.638 #### [facility] [address] [place], [address] Chloride [Moles/Vol] 103 mmol/L Normal 98-108 [facility] Comment on above: Performed By: #### M 100.638 #### [facility] [address] [place], [address] CO2 [Moles/Vol] 20.5 mmol/L Low 21.0-32.0 [facility] Comment on above: Performed By: #### M 100.638 #### [facility] [address] [place], [address] Creatinine [Mass/Vol] 1.09 mg/dL Normal 0.70-1.20 [facility] Comment on above: Performed By: #### M 100.638 #### [facility] [address] [place], [address] ECRCL 87.71 ml/min Normal 50-250 [facility] Comment on above: Performed By: #### M 100.638 #### [facility] [address] [place], [address] GAP 11 Normal 5-15 [facility] Comment on above: Performed By: #### M 100.638 #### [facility] [address] [place], [address] GFR/1.73 sq M.predicted among non-blacks MDRD (S/P/Bld) [Vol rate/Area] 75 mL/min/{1.73_m2} Normal >60 [facility] Comment on above: Result Comment: mL/m in/1.73m2 CKD-EPI Creatinine Equation (2020) Performed By: #### M 100.638 #### [facility] [address] [place], [place], [address] Glucose [Mass/Vol] 109 mg/dL High 70-[address] [facility] Comment on above: Performed By: #### M 100.638 #### [facility] [address] [place], [address] Potassium [Moles/Vol] 4.3 mmol/L Normal 3.3-5.1 [facility] Comment on above: Performed By: #### M 100.638 #### [facility] [address] [place], [address] Sodium [Moles/Vol] 134 mmol/L Normal 133-[address] [facility] Comment on above: Performed By: #### M 100.638 #### [facility] [address] [place], [place], [address] Urea nitrogen [Mass/Vol] 18 mg/dL Normal 4-19 [facility] Comment on above: Performed By: #### M 100.638 #### [facility] [address] [place], [place], [address] Basophil percentageOrdered B y: Maira Yeh on 03-01-2025 Basophils/100 WBC (Bld) 0.8 % 0-1 [facility] Bilirubin directOrdered By: Armani Tolbert on 03-01-2025 Bilirubin.direct [Mass/Vol] 0.24 mg/dL 0.00-0.30 [facility] Bilirubin, totalOrdered By: Armani Tolbert on 03-01-2025 Bilirubin [Mass/Vol] 0.47 mg/dL 0.00-1.30 [facility] Blood Gases by [facility] 025 RYAN TEST Positive Normal [facility] Comment on above: Performed By: #### L 9000.0800 ####[facility] [address] [place], [place], [id number] Base excess Calc (Bld) [Moles/Vol] -2 mmol/L Normal -2 to +2 [facility] Comment on above: Performed By: #### L 9000.0800 ####[facility] [address] [place], [address] Blood Gas Type ART Normal [facility] Comment on above: Performed By: #### L 9000.0800 ####[facility] [address] [place], [address] CO2 [Moles/Vol] 24 mmol/L Normal [facility] Comment on above: Performed By: #### L 9000.0800 ####[facility] [address] [place], [address] Comment airvo Normal [facility] Comment on above: Performed By: #### L 9000.0800 ####[facility] [address] [place], [address] FI02 45.0 Normal [facility] Comment on above: Performed By: #### L 9000.0800 ####[facility] [address] [place], [address] HCO3 (Bld) [Moles/Vol] 22.8 mmol/L Normal 22-26 [facility] Comment on above: Performed By: #### L 9000.0800 ####[facility] [address] [place], [address] Mode Not entered [facility] Comment on above: Performed By: #### L 9000.0800 ####[facility] [address] [place], [address] O2 Delivery Dev Not entered [facility] Comment on above: Performed By: #### L 9000.0800 ####[facility] [address] [place], [address] pCO2 36.7 mmHg Normal 35-45 [facility] Comment on above: Performed By: #### L 9000.0800 ####[facility] [address] [place], [address] pH (Bld) 7.40 [pH] Normal 7.35-7.45 [facility] Comment on above: Performed By: #### L 9000.0800 ####[facility] [address] [place], [address] PO2 77 mmHG Normal 75-100 [facility] Comment on above: Performed By: #### L 9000.0800 ####[facility] [address] [place], [address] SITE R Radial Normal [facility] Comment on above: Performed By: #### L 9000.0800 ####[facility] [address] [place], [address] SO2 95 Normal 95-99 [facility] Comment on above: Performed By: #### L 9000.0800 ####[facility] [address] [place], [address] Blood base excess determinat ionOrdered By: Armani Tolbert on 03-01-2025 Base excess Calc (BldV) [Moles/Vol] -2 mmol/L -2-2 [facility] Blood bicarbonate measuremen tOrdered By: Armani Tolbert on 03-01-2025 HCO3 (Bld) [Moles/Vol] 22.8 mmol/L 22-26 [facility] Blood manual differential co mment interpretation (narrative result)Ordered By: Maira Yeh on 03-01-2025 Manual differential comment Иван (Bld) [Interp] SCANNED [facility] CBC W/Diff, Automatedon 02-16 PLT EST ADEQUATE Normal ADEQ [facility] Comment on above: Order Comment: Lyle wise note: For this sample, a platelet estimate isprovided rather than a platelet count due to plateletclumping. Other parameters associated with this sample arenot affected by platelet clumping. If a more accurateplatelet count is required, a redraw of the patient will benecessary. Performed By: #### M 100.638 #### [facility] [address] [place], [address] SMEAR COMMENT SCANNED Normal [facility] Comment on above: Order Comment: Lyle wise note: For this sample, a platelet estimate isprovided rather than a platelet count due to plateletclumping. Other parameters associated with this sample arenot affected by platelet clumping. If a more accurateplatelet count is required, a redraw of the patient will benecessary. Performed By: #### M 100.638 #### [facility] [address] [place], [place], [address] Chest 1 View (Portable)on Chest 1 View (Portable) [facility] Imaging Services [address] [place], [place] [address] Chest 1 View (Portable) MR#: [id number] Acct: [id number] Name: ELIS BILLS Rep #: [id number] : 1960 M 64 From: Willy Arellano MD PCP: Anna Sanders PA-C Status: ADM IN Study: Chest 1 View (Portable) Date of Exam: 03/01/25 Exam# [id number] Ordering Dr: Mechelle Maya DO PROCEDURE: CHEST 1 VIEW (PORTABLE) 03/01/2025 REASON FOR EXAM: POSSIBLE FLUID OVERLOAD TECHNIQUE: Frontal view of the chest. COMPARISON: 02/28/2025 FINDINGS: Rotated and lordotic patient. Normal heart size. Persistent right base airspace disease, atelectasis/consolida tion. Possible developing right central mid lung airspace disease. No effusion or pneumothorax. RAD/Chest 1 View (Portable) IMPRESSION: Suspect interval worsening in right mid and lower lung zone airspace disease. Reading Location: [facility] CC: STEVE Sanders; Dr. Mechelle Maya DO Litigation Attorney: Signed Normal [facility] Consultation - Infectious Dx on 03-01-2025 Consultation - Infectious Dx [facility] Medical Records Department [address] [place] [address] Consultation - Infectious Dx 03/01/25 1045 MR#: [id number] Acct: [id number] Name: ELIS BILLS Rep #: [id number] : 1960 64 From: Pilar Gannon MD PCP: Anna Sanders PA-C Status:ADM IN Location: ICU ICU01-1 Assessment Plan Assessment/Plan (1) Sepsis: QUALIFIERS: Sepsis type: sepsis due to unspecified organism Sepsis acute organ dysfunction status: with acute organ dysfunction Severe sepsis acute organ dysfunction type: e ncephalopathy Severe sepsis shock status: without septic shock Qualified Code(s): A41.9 - Sepsis, unspecified organism; R65.20 - Severe sepsis without septic shock; G93.41 - Metabolic encephalopathy PLAN: Still high fever, infectious workup neg so far besides for presumed aspiration pneumonia. Lyme pending. Etoh withdrawal could be playing a part in his temps. Cont broad coverage for now with vanc, cefepime, doxy, flagyl. Low suspicion for meningitis at this time if he is able to wake and interact without head/neck pain when sedation is weaned. Will follow, thank you, d/w nursing (2) Aspiration pneumonia: QUALIFIERS: Aspiration pneumonia type: unspecified Laterality: right Lung location: lower lobe of lung Qualified Code(s): J69.0 - Pneumonitis due to inhalation of food and vomit (3) Acute metabolic encephalopathy: HPI Consult Data Date of Consult: 03/01/25 HPI Narrative Reason for Consultation: fever HPI Narrative: ELIS BILLS, is a 64 M with h/o etoh abuse, obesity, COPD presented to [facility] 02/25 with 2 days confusion, fall at home. Had some pain in knee per 's report in ED. Admitted to icu, now on vanc/cefepime/flagyl/ doxy and iv steroids. Still with high fevers. Per nursing, when precedex is weaned, he is awake, talking, interactive, able to move head/neck. Full ROS limited due to to mental status. [facility] Medical History Hyperlipemia Hypertension GERD (gastroesophageal reflux disease) Home Medications ???Medication ???Instructions ???Recorded ???Last Taken ???Type atorvastatin 80 mg tablet 80 mg PO DAILY 03/22/22 03/22/22 H istory clopidogrel 75 mg tablet 75 mg PO DAILY 03/22/22 03/22/22 H istory lisinopril 2.5 mg tablet 2.5 mg PO DAILY 03/22/22 03/22/22 History esomeprazole magnesium 40 mg 40 mg PO DAILY 02/26/25 Unknown Hi story capsule,delayed release folic acid 1 mg tablet 1 mg PO DAILY 02/26/25 Unknown His tory ipratropium 0.5 mg-albuterol 3 mg 3 ml continuous nebulization Q4H 02/26/25 Unknown History (2.5 mg base)/3 mL nebulization PRN PRN wheezing soln montelukast 10 mg tablet 10 mg PO DAILY 02/26/25 Unknown Hi story thiamine HCl (vitamin B1) 100 mg 100 mg PO DAILY 02/26/25 Unknown H istory tablet umeclidinium 62.5 mcg-vilanterol 1 ea inhalation DAILY 02/26/25 Unk nown History 25 mcg/actuation powdr for inhalation (Anoro Ellipta) Allergy/AdvReac Type Severity Reaction Status Date / Time Penicillins (PCN) Allergy Unknown - Verified 02/28/25 10:02 WAS A BABY Social History Smoking Status: Current every day smoker tobacco type: cigarettes Physical Exam Const no apparent distress General Appearance: lethargic HEENT normocephalic and head/scalp atraumatic Eyes PERRL and EOMs intact bilaterally Neck supple and No nodes Resp Auscultation: rhonchi and diminished lung sounds Cardio regular rate and regular rhythm GI soft to palpation, non-tender and non-distended Extremity General Extremity: edema Skin no rashes or lesions noted Neuro CN's II-XII intact bilaterally Lab / Micro Data Attestation: I reviewed the patient's lab results. 03/01/25 04:36 03/01/25 04:36 Labs: Laboratory Results - last 24 hr 02/28/25 11:15: Vancomycin Trough 14.7 02/28/25 15:00: Ammonia 19.7, Lipase 22 02/28/25 16:25: D-Dimer Quant (PE/DVT) 2.78 H* 03/01/25 04:36: WBC 13.0 H, RBC 4.14 L, Hgb 11.9 L, Hct 37.8 L, MCV 91.3 D, MCH 28.7, MCHC 31.5 L D , RDW Std Deviation 49.4 H, RDW Coeff of Carlos 14.6, Plt Count TNP, MPV 10.7, Immature Gran % (Auto) 0.800, Neut % (Auto) 82.5 H, Lymph % (Auto) 8.4 L, Emanuel % (Auto) 7.3, Eos % (Auto) 0.2, Baso % (Auto) 0.8, Absolute Neuts (auto) 10.7 H, Absolute Lymphs (auto) 1.09, Nucleated RBC % 0, Differential Comment SCANNED, Platelet Estimate ADEQUATE, Sodium 134, Potassium 4.3, Chloride 103, C arbon Dioxide 20.5 L, Anion Gap 11, BUN 18, Creatinine 1.09, Estim Creat Clear Calc 87.71, Est GFR (MDRD) Non-Af 75, BUN/Creatinine Ratio 16.7, Glucose 109 H, Calcium 7.6, Total Bilirubin 0.47, Direct Bilirubin 0.24, AST 77 H, ALT 48 H, Alkaline Phosphatase 95, NT pro BNP II 2914 H, Total Protein 6.3, Albumin 3.2 L, Globulin 3.1 Mi (more content not included)... Normal [facility] Eosinophil percentageOrdered By: Maira Yeh on 03-01-2025 Eosinophils/100 WBC (Bld) 0.2 % 0-5 [facility] Immature granulocytes/100 WB C Auto (Bld)Ordered By: Maira Yeh on 03-01-2025 Immature granulocytes/100 WBC (Bld) 0.800 % 0.0-0.9 [facility] Comment on above: IG% - Immature Granu locytes (promyelocytes, myelocytes and metamyelocytes) > 1% indicates that a LEFT SHIFT is Present. L509.7001on 03-01-2025 Procalcitonin 1.22 ng/mL High <=0.10 [facility] Comment on above: Result Comment: Inte rpretation: <0.10-0.25 ng/mL: Antibiotic therapy discouraged. Bacterial infection unlikely. 0.25-0.50 ng/mL: Antibiotic therapy encouraged. Bacterial infection possible. >0.50 ng/mL: Antibiotic therapy strongly encouraged. Suggestive of presence of bacterial infection. PCT should always be interpreted in the clinical context of the patient. Therefore, clinicians should use the PCT results in conjunction with other laboratory findings and clinical signs of the patient. Performed By: #### L 100.0500, L500.2500 #### [facility] [address] [place], [address] Laboratory - Chemistry and C hemistry - challengeOrdered By: Armani Tolbert on 03-01-2025 AST [Catalytic activity/Vol] 77 U/L High <38 [facility] Liver Profileon 03-01-2025 Albumin [Mass/Vol] 3.2 g/dL Low 3.4-4.[address] [facility] Comment on above: Performed By: #### L 100.0500, L500.2500 #### [facility] [address] [place], [address] ALK PHOS 95 U/L Normal 40-129 [facility] Comment on above: Performed By: #### L 100.0500, L500.2500 #### [facility] [address] [place], [address] ALT [Catalytic activity/Vol] 48 U/L High <=46 [facility] Comment on above: Performed By: #### L 100.0500, L500.2500 #### [facility] [address] [place], [address] AST [Catalytic activity/Vol] 77 U/L High <=37 [facility] Comment on above: Performed By: #### L 100.0500, L500.2500 #### [facility] [address] [place], [address] Bilirubin [Mass/Vol] 0.47 mg/dL Normal 0.00-1.30 [facility] Comment on above: Performed By: #### L 100.0500, L500.2500 #### [facility] [address] [place], [address] Bilirubin.direct [Mass/Vol] 0.24 mg/dL Normal 0.00-0.30 [facility] Comment on above: Performed By: #### L 100.0500, L500.2500 #### [facility] [address] [place], [address] Globulin (S) [Mass/Vol] 3.1 g/dL Normal 2.2-4.2 [facility] Comment on above: Performed By: #### L 100.0500, L500.2500 #### [facility] [address] [place], [address] T PROT 6.3 g/dL Normal 5.9-8.4 [facility] Comment on above: Performed By: #### L 100.0500, L500.2500 #### [facility] [address] [place], [address] Lyme Screen W/Reflex WBon LYME SCREEN Ab Negative Normal Negative [facility] Comment on above: Result Comment: Lyme antibodies not detected. Reflex testing is not indicated. No laboratory evidence of infection with B. burgdorferi (Lyme disease). Negative results may occur in patients recently infected (less than or equal to 14 days) with B. burgdorferi. If recent infection is suspected, repeat testing on a new sample collected in 7 to 14 days is recommended. Performed at: [facility] [address] [id number] [employer] Installer: Tang Loyola PhD, Phone: [phone] Performed By: #### L 7004.5300 ####[facility] [address] [place], [address] Measurement, pHOrdered By: Vikki Tolbert on 03-01-2025 pH (Unsp spec) 7.40 [pH] 7.35-7.45 [facility] Monocyte percentageOrdered B y: Maira Yeh on 03-01-2025 Monocytes/100 WBC (Bld) 7.3 % 0-10 [facility] Natriuretic peptide.B prohor dewey N-Terminal [Mass/volume] in Serum or PlasmaOrdered By: Mechelle Guerra on 03-01-2025 Natriuretic peptide.B prohormone N-Terminal [Mass/Vol] 2914 pg/mL High <900 [facility] Comment on above: Heart Failure Unlike ly: < 300 pg/mLHeart Failure Likely< 50 Years: > 450 pg/mL50-75 Years: > 900 pg/mL>75 Years: > 1800 pg/mL Neutrophil percentageOrdered By: Maira Yeh on 03-01-2025 Neutrophils/100 WBC (Bld) 82.5 % High 47-70 [facility] No Panel InformationOrdered By: Armani Tolbert on 03-01-2025 Blood Gas Clinical Comments airvo [facility] Blood Gas Sample Site R Radial [facility] Blood Gas Specimen Type ART [facility] Blood Gas Vent Mode Not entered [facility] Oxygen Delivery Device Not entered [facility] Nucleated red blood cell per centageOrdered By: Maira Yeh on 03-01-2025 Nucleated RBC/100 WBC (Bld) [Ratio] 0 % 0-5 [facility] Platelet estimateOrdered By: Maira Yeh on 03-01-2025 Platelets LM Ql (Bld) ADEQUATE ADEQ [facility] Pro- Brain NATRIURETIC PEPTI Pb 03-01-2025 Natriuretic peptide B (Bld) [Mass/Vol] 2914 pg/mL High <=900 [facility] Comment on above: Result Comment: Hear t Failure Unlikely: < 300 pg/mL Heart Failure Likely < 50 Years: > 450 pg/mL 50-75 Years: > 900 pg/mL >75 Years: > 1800 pg/mL Performed By: #### L 503.7505 ####[facility] [address] [place], [address] Procalcitonin [Mass/volume] in Serum or Plasma by ImmunoassayOrdered By: Gamal Calero on 03-01-2025 Procalcitonin IA [Mass/Vol] 1.22 ng/mL High <0.11 [facility] Comment on above: Interpretation:<0.10 -0.25 ng/mL: Antibiotic therapy discouraged. Bacterial infection unlikely.0.25-0.50 ng/mL: Antibiotic therapy encouraged. Bacterial infection possible.>0.50 ng/mL: Antibiotic therapy strongly encouraged. Suggestive of presence of bacterial infection.PCT should always be interpreted in the clinical context of the patient. Therefore, clinicians should use the PCT results in conjunction with other laboratory findings and clinical signs of the patient. Serum globulin measurementOr dered By: Armani Tolbert on 03-01-2025 Globulin (S) [Mass/Vol] 3.1 g/dL 2.2-4.2 [facility] Serum or plasma alanine betts otransferase (ALT) measurementOrdered By: Armani Tolbert on 03-01-2025 ALT [Catalytic activity/Vol] 48 U/L High <47 [facility] Serum or plasma albumin sidra urement (mass/volume)Ordered By: Armani Tolbert on 03-01-2025 Albumin [Mass/Vol] 3.2 g/dL Low 3.4-4.[address] [facility] Serum or plasma alkaline ronal sphatase measurementOrdered By: Armani Tolbert on 03-01-2025 ALP [Catalytic activity/Vol] 95 U/L 40-129 [facility] Total carbon dioxide measure mentOrdered By: Armani Tolbert on 03-01-2025 CO2 [Moles/Vol] 24 mmol/L [facility] Total proteinOrdered By: Alejandra Tolbert on 03-01-2025 Protein [Mass/Vol] 6.3 g/dL 5.9-8.[address] [facility] Urine Cultureon 03-01-2025 URC Below infection level. Mixed Gram Positive Organisms [place] Count <1000 [facility] Mixed contaminants. Submit a new specimen if indicated. Normal [facility] Comment on above: Performed By: #### L 503.7505, L501.5200, L501.2300 #### [facility] [address] [place], [address] Basic Metabolic Profile (BMP )on 02-28-2025 BUN/CRE 18.1 RATIO Normal 10-20 [facility] Comment on above: Performed By: #### L 100.0500, L500.2500 #### [facility] [address] [place], [address] Calcium [Mass/Vol] 8.1 mg/dL Normal 7.6-11.[address] [facility] Comment on above: Performed By: #### L 100.0500, L500.2500 #### [facility] [address] [place], [address] Chloride [Moles/Vol] 96 mmol/L Low 98-108 [facility] Comment on above: Performed By: #### L 100.0500, L500.2500 #### [facility] [address] [place], [address] CO2 [Moles/Vol] 20.0 mmol/L Low 21.0-32.0 [facility] Comment on above: Performed By: #### L 100.0500, L500.2500 #### [facility] [address] [place], [address] Creatinine [Mass/Vol] 0.99 mg/dL Normal 0.70-1.20 [facility] Comment on above: Performed By: #### L 100.0500, L500.2500 #### [facility] [address] [place], [address] ECRCL 94.97 ml/min Normal 50-250 [facility] Comment on above: Performed By: #### L 100.0500, L500.2500 #### [facility] [address] [place], [address] GAP 12 Normal 5-15 [facility] Comment on above: Performed By: #### L 100.0500, L500.2500 #### [facility] [address] [place], [address] GFR/1.73 sq M.predicted among non-blacks MDRD (S/P/Bld) [Vol rate/Area] 85 mL/min/{1.73_m2} Normal >60 [facility] Comment on above: Result Comment: mL/m in/1.73m2 CKD-EPI Creatinine Equation (2020) Performed By: #### L 100.0500, L500.2500 #### [facility] [address] [place], [address] Glucose [Mass/Vol] 115 mg/dL High 70-[address] [facility] Comment on above: Performed By: #### L 100.0500, L500.2500 #### [facility] [address] [place], [address] Potassium [Moles/Vol] 4.0 mmol/L Normal 3.3-5.1 [facility] Comment on above: Performed By: #### L 100.0500, L500.2500 #### [facility] [address] [place], [address] Sodium [Moles/Vol] 129 mmol/L Low 133-[address] [facility] Comment on above: Performed By: #### L 100.0500, L500.2500 #### [facility] [address] [place], [address] Urea nitrogen [Mass/Vol] 18 mg/dL Normal 4-19 [facility] Comment on above: Performed By: #### L 100.0500, L500.2500 #### [facility] [address] [place], [address] Blood Gases by [facility] 025 RYAN TEST Negative Normal [facility] Comment on above: Performed By: #### L 100.0500, L500.2500 #### [facility] [address] [place], [address] Base excess Calc (Bld) [Moles/Vol] 2 mmol/L Normal -2 to +2 [facility] Comment on above: Performed By: #### L 100.0500, L500.2500 #### [facility] [address] [place], [address] Blood Gas Type ART [facility] Comment on above: Performed By: #### L 100.0500, L500.2500 #### [facility] [address] [place], [address] CO2 [Moles/Vol] 27 mmol/L Normal [facility] Comment on above: Performed By: #### L 100.0500, L500.2500 #### [facility] [address] [place], [address] FI02 3.0 [facility] Comment on above: Performed By: #### L 100.0500, L500.2500 #### [facility] [address] [place], [address] HCO3 (Bld) [Moles/Vol] 25.5 mmol/L Normal 22-26 [facility] Comment on above: Performed By: #### L 100.0500, L500.2500 #### [facility] [address] [place], [address] Mode Not entered [facility] Comment on above: Performed By: #### L 100.0500, L500.2500 #### [facility] [address] [place], [address] O2 Delivery Dev Not entered [facility] Comment on above: Performed By: #### L 100.0500, L500.2500 #### [facility] [address] [place], [address] pCO2 34.3 mmHg Low 35-45 [facility] Comment on above: Performed By: #### L 100.0500, L500.2500 #### [facility] [address] [place], [address] pH (Bld) 7.48 [pH] High 7.35-7.45 [facility] Comment on above: Performed By: #### L 100.0500, L500.2500 #### [facility] [address] [place], [address] PO2 85 mmHG Normal 75-100 [facility] Comment on above: Performed By: #### L 100.0500, L500.2500 #### [facility] [address] [place], [address] SITE L Radial Normal [facility] Comment on above: Performed By: #### L 100.0500, L500.2500 #### [facility] [address] [place], [address] SO2 97 Normal 95-99 [facility] Comment on above: Performed By: #### L 100.0500, L500.2500 #### [facility] [address] [place], [address] Comment Temp correct 40.2C Normal [facility] Comment on above: Order Comment: Resul ts entered by Rosmery and verified by [employer] [id number].Non-temperature corrected results: 7.484, pCO2 31.5 and pO267.5. Performed By: #### M 100.638 #### [facility] [address] [place], [address] Base excess Calc (Bld) [Moles/Vol] 0 mmol/L Normal -2 to +2 [facility] Comment on above: Order Comment: Resul ts entered by Rosmery and verified by [employer] 02-28-25711.Non-temperature corrected results: 7.484, pCO2 31.5 and pO267.5. Performed By: #### M 100.638 #### [facility] [address] [place], [address] CO2 [Moles/Vol] 25 mmol/L Normal [facility] Comment on above: Order Comment: Resul ts entered by Rosmery and verified by [employer] 02-28-25711.Non-temperature corrected results: 7.484, pCO2 31.5 and pO267.5. Performed By: #### M 100.638 #### [facility] [address] [place], [address] HCO3 (Bld) [Moles/Vol] 23.6 mmol/L Normal 22-26 [facility] Comment on above: Order Comment: Resul ts entered by Fernandopavan and verified by [employer] 02-28-25711.Non-temperature corrected results: 7.484, pCO2 31.5 and pO267.5. Performed By: #### M 100.638 #### [facility] [address] [place], [address] LPM 5.0 Normal [facility] Comment on above: Order Comment: Resul ts entered by Rosmery and verified by [employer] 02-28-25711.Non-temperature corrected results: 7.484, pCO2 31.5 and pO267.5. Performed By: #### M 100.638 #### [facility] [address] [place], [address] O2 Delivery Dev Nasal Can Normal [facility] Comment on above: Order Comment: Resul ts entered by Rosmery and verified by [employer] 02-28-25711.Non-temperature corrected results: 7.484, pCO2 31.5 and pO267.5. Performed By: #### M 100.638 #### [facility] [address] [place], [address] pCO2 36.2 mmHg Normal 35-45 [facility] Comment on above: Order Comment: Resul ts entered by Rosmery and verified by [employer] 02-28-25711.Non-temperature corrected results: 7.484, pCO2 31.5 and pO267.5. Performed By: #### M 100.638 #### [facility] [address] [place], [address] pH (Bld) 7.44 [pH] Normal 7.35-7.45 [facility] Comment on above: Order Comment: Resul ts entered by Rosmery and verified by [employer] 02-28-25 07.Non-temperature corrected results: 7.484, pCO2 31.5 and pO267.5. Performed By: #### M 100.638 #### [facility] [address] [place], [address] PO2 84 mmHG Normal 75-100 [facility] Comment on above: Order Comment: Resul ts entered by Rosmery and verified by [employer] 02-28-25711.Non-temperature corrected results: 7.484, pCO2 31.5 and pO267.5. Performed By: #### M 100.638 #### [facility] [address] [place], [address] SO2 95 Normal 95-99 [facility] Comment on above: Order Comment: Resul ts entered by Rosmery and verified by [employer] 02-28-25711.Non-temperature corrected results: 7.484, pCO2 31.5 and pO267.5. Performed By: #### M 100.638 #### [facility] [address] [place], [address] RYAN TEST Negative Normal [facility] Comment on above: Order Comment: Resul ts entered by Rosmery and verified by [employer] 02-28-25711.Non-temperature corrected results: 7.484, pCO2 31.5 and pO267.5. Performed By: #### M 100.638 #### [facility] [address] [place], [address] Blood Gas Type ART Normal [facility] Comment on above: Order Comment: Resul ts entered by Rosmery and verified by [employer] 08-13-25at 0712.Non-temperature corrected results: 7.484, pCO2 31.5 and pO267.5. Performed By: #### M 100.638 #### [facility] [address] [place], [address] SITE R RADIAL Normal [facility] Comment on above: Order Comment: Resul ts entered by Rosmery and verified by Karina 02-28-25[place] [address].Non-temperature corrected results: 7.484, pCO2 31.5 and pO267.5. Performed By: #### M 100.638 #### [facility] [address] [place], [address] CBC W/Diff, Automatedon 02-16-2024 Absolute Lymph 1.01 X10 3/uL Normal 0.83-4.51 [facility] Comment on above: Performed By: #### L 100.0500, L500.2500 #### [facility] [address] [place], [address] Absolute Neut 10.9 X10 3/uL High 2.0-7.7 [facility] Comment on above: Performed By: #### L 100.0500, L500.2500 #### [facility] [address] [place], [address] Basophils/100 WBC (Bld) 0.4 % Normal 0-1 [facility] Comment on above: Performed By: #### L 100.0500, L500.2500 #### [facility] [address] [place], [address] Eosinophils/100 WBC (Bld) 0.5 % Normal 0-5 [facility] Comment on above: Performed By: #### L 100.0500, L500.2500 #### [facility] [address] [place], [address] Erythrocyte distribution width (RBC) [Ratio] 14.0 % Normal 11.6-14.6 [facility] Comment on above: Performed By: #### L 100.0500, L500.2500 #### [facility] [address] [place], [address] Hematocrit (Bld) [Volume fraction] 34.5 % Low 40-54 [facility] Comment on above: Performed By: #### L 100.0500, L500.2500 #### [facility] [address] [place], [address] Hemoglobin (Bld) [Mass/Vol] 11.7 g/dL Low 13.0-16.5 [facility] Comment on above: Performed By: #### L 100.0500, L500.2500 #### [facility] [address] [place], [address] IG% 0.900 Normal 0.0-0.9 [facility] Comment on above: Result Comment: IG% - Immature Granulocytes (promyelocytes, myelocytes and metamyelocytes) > 1% indicates that a LEFT SHIFT is Present. Performed By: #### L 100.0500, L500.2500 #### [facility] [address] [place], [address] Lymphocytes/100 WBC (Bld) 7.6 % Low 19-41 [facility] Comment on above: Performed By: #### L 100.0500, L500.2500 #### [facility] [address] [place], [address] MCH (RBC) [Entitic mass] 29.5 pg Normal 27.0-32.0 [facility] Comment on above: Performed By: #### L 100.0500, L500.2500 #### [facility] [address] [place], [address] MCHC (RBC) [Mass/Vol] 33.9 g/dL Normal 32-36 [facility] Comment on above: Performed By: #### L 100.0500, L500.2500 #### [facility] [address] [place], [address] MCV (RBC) [Entitic vol] 86.9 fL Normal 80-94 [facility] Comment on above: Performed By: #### L 100.0500, L500.2500 #### [facility] [address] [place], [address] Monocytes/100 WBC (Bld) 8.8 % Normal 0-10 [facility] Comment on above: Performed By: #### L 100.0500, L500.2500 #### [facility] [address] [place], [address] Neutrophils/100 WBC (Bld) 81.8 % High 47-70 [facility] Comment on above: Performed By: #### L 100.0500, L500.2500 #### [facility] [address] [place], [address] Nucleated RBC (Bld) [#/Vol] 0 10*3/uL Normal 0-5 [facility] Comment on above: Performed By: #### L 100.0500, L500.2500 #### [facility] [address] [place], [address] Platelet mean volume (Bld) [Entitic vol] 9.1 fL Normal 6.2-12.0 [facility] Comment on above: Performed By: #### L 100.0500, L500.2500 #### [facility] [address] [place], [address] Platelets (Bld) [#/Vol] 249 10*3/uL Normal 150-450 [facility] Comment on above: Performed By: #### L 100.0500, L500.2500 #### [facility] [address] [place], [address] RBC (Bld) [#/Vol] 3.97 10*6/uL Low 4.6-6.2 [facility] Comment on above: Performed By: #### L 100.0500, L500.2500 #### [facility] [address] [place], [address] RDW SD 44.6 fl High 35.1-43.9 [facility] Comment on above: Performed By: #### L 100.0500, L500.2500 #### [facility] [address] [place], [address] WBC (Bld) [#/Vol] 13.3 10*3/uL High 4.4-11.0 [facility] Comment on above: Performed By: #### L 100.0500, L500.2500 #### [facility] [address] [place], [address] CO2 (BldV) [Moles/Vol]Ordere d By: Maira Yeh on 02-28-2025 CO2 [Moles/Vol] 27 mmol/L 23-33 [facility] CTA Chest W/WO Contraston CTA Chest W/WO Contrast [facility] Imaging Services [address] [place] [address] CTA Chest W/WO Contrast MR#: [id number] Acct: [id number] Name: ELIS BILLS Rep #: [id number] : 1960 M 64 From: John Nicole MD PCP: Anna Sanders PA-C Status: ADM IN Study: CTA Chest W/WO Contrast Date of Exam: 02/28/25 Exam# [id number] Ordering Dr: Maira Yeh MD PROCEDURE: CTA CHEST W/WO CONTRAST 02/28/2025 REASON FOR EXAM: ELEVATED D DIMER TECHNIQUE: CTA CHEST W/WO CONTRAST Multiplanar Sagittal and Coronal images were obtained. 3D post processing was performed. CONTRAST: Isovue 370 VOLUME: 100 mL One or more dose reduction techniques were used (e.g., Automated exposure control, adjustment of the mA and/or kV according to patient size, use of iterative reconstruction technique). RADIATION DOSE SUMMARY: DLP: 617.14 mGycm COMPARISON: CT chest 02/27/2025. FINDINGS: PULMONARY VESSELS: No central pulmonary arterial emboli filling defects. The segmental and subsegmental pulmonary arterial branches are not adequately evaluated due to significant respiratory motion artifact. Normal caliber pulmonary trunk. No evidence for right heart strain. LUNGS/PLEURA: Respiratory motion artifact. Interval increased dense consolidation and/or atelectasis within the majority of the right lower lobe, consistent with lobar pneumonia. Small right pleural effusion. No pneumothorax. Central airways are patent. MEDIASTINUM: Mediastinal lymphadenopathy, particularly with multiple enlarged right hilar and peribronchial/subcari nal lymph nodes, most likely reactive. HEART: Borderline enlarged. No pericardial effusion. Minimal coronary artery calcifications. THORACIC AORTA: Normal in course and caliber. Mild atherosclerotic calcifications. UPPER ABDOMEN: No significant abnormality visualized. BONES: Mild degenerative changes of the spine. Chronic superior endplate mild compression fracture deformity of L1 vertebral body with minimal height loss. CT/CTA Chest W/WO Contrast IMPRESSION: 1. Right lower lobar pneumonia, substantially increased from prior exam. 2. Associated small right parapneumonic pleural effusion. 3. Presumed reactive right hilar and mediastinal lymphadenopathy. 4. No central pulmonary arterial emboli. Segmental-subsegmenta l branches are not adequately evaluated on this exam due to significant respiratory motion artifact. Reading Location: [id number] CC: STEVE Sanders; Dr. Maira Yeh MD Litigation Attorney: Signed Normal [facility] Chest 1 View (Portable)on Chest 1 View (Portable) [facility] Imaging Services [address] [place], [place] [id number] Chest 1 View (Portable) MR#: [id number] Acct: [id number] Name: ELIS BILLS Rep #: [id number] : 1960 M 64 From: Willy Arellano MD PCP: Anna Sanders PA-C Status: ADM IN Study: Chest 1 View (Portable) Date of Exam: 02/28/25 Exam# [id number] Ordering Dr: Mechelle Maya DO PROCEDURE: CHEST 1 VIEW (PORTABLE) 02/28/2025 REASON FOR EXAM: TACHYPNEA TECHNIQUE: Frontal view of the chest. COMPARISON: 02/26/2025 FINDINGS: Lordotic position. Normal heart size. Prominent left-sided fat pad. Persistent right medial basilar opacity possible consolidation. No effusion or pneumothorax. RAD/Chest 1 View (Portable) IMPRESSION: Persistent right medial basal airspace disease, possible pneumonia. Reading Location: RAD-ARELLANO-2 CC: STEVE Sanders; Dr. Mechelle Maya DO Litigation Attorney: Signed Normal [facility] Consultation - Intensiviston 02-28-2025 Consultation - Supervisor [employer] [facility] Medical Records Department [address] [place] [address] Consultation - Supervisor [employer] 02/28/25 1415 MR#: [id number] Acct: [id number] Name: ELIS BILLS Rep #: [id number] : 1960 64 From: Gamal Calero MD PCP: Anna Sanders PA-C Status:ADM IN Location: ICU ICU01-1 HPI Consult Data Date of Consult: 02/28/25 HPI Narrative HPI Narrative: ELIS BILLS, is a 64 M w/ asthma/COPD, EtOH abuse, HTN, morbid obesity, HLD, h/o tobacco abuse, GERD who was admitted for AMS. He apparently fell at home the day before admit and was lethargic. He had also been having some cough at home. On arrival here he was noted to have high fever >102F and with CXR concerning for PNA. He was initially admitted to floor, however overnight he had worsening agitation, tachypnea, increased O2 requirement up to 5L NC. This occurred also after he had choking on some watermelon last night. Concern for EtOH withdrawal given last drink reportedly 3-4 days ago, along with aspiration. He was started on IV phenobarbital taper along with precedex gtt and transferred to ICU. He continues to have high fever here, lethargic. Per no recent sick contacts. He drinks 8-9 beers daily. No prior hospitalizations for EtOH withdrawal. ROS: Unable to obtain d/t AMS [facility] Medical History Hyperlipemia Hypertension GERD (gastroesophageal reflux disease) Home Medications ???Medication ???Instructions ???Recorded ???Last Taken ???Type atorvastatin 80 mg tablet 80 mg PO DAILY 03/22/22 03/22/22 H istory clopidogrel 75 mg tablet 75 mg PO DAILY 03/22/22 03/22/22 H istory lisinopril 2.5 mg tablet 2.5 mg PO DAILY 03/22/22 03/22/22 History esomeprazole magnesium 40 mg 40 mg PO DAILY 02/26/25 Unknown Hi story capsule,delayed release folic acid 1 mg tablet 1 mg PO DAILY 02/26/25 Unknown His tory ipratropium 0.5 mg-albuterol 3 mg 3 ml continuous nebulization Q4H 02/26/25 Unknown History (2.5 mg base)/3 mL nebulization PRN PRN wheezing soln montelukast 10 mg tablet 10 mg PO DAILY 02/26/25 Unknown Hi story thiamine HCl (vitamin B1) 100 mg 100 mg PO DAILY 02/26/25 Unknown H istory tablet umeclidinium 62.5 mcg-vilanterol 1 ea inhalation DAILY 02/26/25 Unk nown History 25 mcg/actuation powdr for inhalation (Anoro Ellipta) Allergy/AdvReac Type Severity Reaction Status Date / Time Penicillins (PCN) Allergy Unknown - Verified 02/28/25 10:02 WAS A BABY Social History Smoking Status: Current every day smoker tobacco type: cigarettes Objective Data Objective Data Vital Signs: Vital Signs Last response 3 Temperature 39.7 C H 02/28/25 13:00 Temperature Source Core 02/28/25 13:00 Pulse Rate 73 02/28/25 13:00 Pulse Strength Normal (2+) 02/28/25 10:00 Respiratory Rate 30 H 02/28/25 13:00 Respiratory Effort Short of Breath, Labored 02/28/25 12:00 Respiratory Depth Shallow 02/28/25 12:00 Respiratory Pattern Hyperpnea 02/28/25 12:33 Blood Pressure 109/57 L 02/28/25 13:00 Blood Pressure Mean 74 02/28/25 13:00 Blood Pressure Source Monitor 02/28/25 13:00 Blood Pressure Position Semi-Fowlers 02/28/25 13:00 Blood Pressure Location Right Arm 02/28/25 13:00 Pulse Ox 99 02/28/25 13:00 Oxygen Delivery Method Nasal Cannula 02/28/25 13:00 Oxygen Flow Rate (L/min) 3 02/28/25 13:00 I O: I O Last 24 Hours 3 02/27/25 02/28/25 02/28/25 23:59 11:59 23:59 Intake Total 1115 / 3850 748.87 / 881.27 132.4 / 881.27 Output Total 250 / 500 250 / 500 Balance 1115 / 3847 498.87 / 381.27 -117.6 / 381.27 I O: Total Stay 3 02/26/25 20:48 thru 02/28/25 13:15 Intake Total 5731.27 Output Total 503 Balance 5228.27 Current Meds Ordered / Administered: Current meds ordered / Administered 3 Generic Name Dose Route Start Last Admin Trade Name Freq PRN Reason Stop Dose Admin Acetaminophen 650 mg 02/27/25 02:02 02/27/25 20:15 Acetaminophen 325 Mg Tablet PO 650 mg Q6H PRN PRN Administration Pain 1-10 or Fever Acetaminophen 650 mg 02/28/25 11:30 02/28/25 11:39 Acetaminophen 650 Mg Suppository RC 650 mg Q4H PRN PRN Administration FEVER Albuterol/Ipratropium 3 ml 02/27/25 02:02 02/28/25 03:08 Ipratropium/Albuterol Sulfate 3 Ml Ampul.Neb INHALATION 3 ml Q4H PRN PRN Administration wheezing Albuterol/Ipratropium 3 ml 02/27/25 02:30 02/28/25 12:00 Ipratropium/Albuterol Sulfate 3 Ml Ampul.Neb INHALATION 3 ml Q6HWA.RT GABBY Administration Atorvastatin Calcium 80 mg 02/27/25 22:00 02/27/25 21:51 Atorvastatin Calcium 80 Mg Tablet PO 80 mg QHS GABBY Administration Chlorhexidine Gluconate 1 each 02/28/25 10:00 02/28/25 10:59 (more content not included)... Normal [facility] D-Dimer Quantitative (DVT/PE )on 02-28-2025 D-DIMER QUANT 2.78 FEU/ug/m Invalid Interpretation Code 0.27-0.49 [facility] Comment on above: Result Comment: D-Di ida ELEVATED (>0.49): Additional studies and clinical assessments are indicated to conclude diagnosis of: Deep Vein Thrombosis (DVT) or Pulmonary Embolism (PE) CRITICAL VALUE CALLED TO MAKEDA TAPIA (ED) 02/28/25 181 Radha Jiménez. RESULTS READ BACK BY SAME. CRITICAL VALUE CALLED TO CHRISTIN PALAFOX (ICU) 02/28/25 182 Radha Jiménez. RESULTS READ BACK BY SAME. AMENDED REPORT 02/28/251826 D-DIMER QUANT previously reported as: 2.78 *H FEU/ug/m D-Dimer ELEVATED (>0.49): Additional studies and clinical assessments are indicated to conclude diagnosis of: Deep Vein Thrombosis (DVT) or Pulmonary Embolism (PE) CRITICAL VALUE CALLED TO MAKEDA TAPIA 02/28/251818 Radha Jiménez. RESULTS READ BACK BY SAME. Performed By: #### L 100.0500, L500.2500 #### [facility] [address] [place], [address] Echo Complete W/ Contraston 02-28-2025 Echo Complete W/ Contrast [facility] [address] [place] [address] Echo Complete W/ Contrast 02/28/25 1529 MR#: [id number] Acct: [id number] Name: ELIS BILLS Rep #: [id number] : 1960 64 From: Lavinia Kee MD Attending Dr: Dr. Maira Yeh MD Status: AD M IN Ordering Dr: Gamal Calero MD Date: 02/28/25 Location: ICU Sex: M C Admitted: 02/27/25 Reason For Study Reason For Study: CHF Procedure This was a 2D Doppler, Color Flow transthoracic echocardiogram. The study was technically difficult. Contrast injection was performed. Exam performed portable in ICU/CCU. Left Ventricle Normal LV size. Mild concentric left ventricular hypertrophy. The estimated ejection fraction is 50 %. Normal diastology for age. Right Ventricle Normal RV size. Normal systolic function. Atria The left and right atria are normal. Mitral Valve The mitral valve is structurally normal. No prolapse or stenosis seen. Trivial mitral valve insufficiency. Tricuspid Valve Unable to estimate RV systolic pressure due to insufficient tricuspid regurgitant envelope. Pulmonic Valve Trivial pulmonic valve insufficiency. Great Vessels Normal sized aortic root. Pericardium/Pleural Epicardial fat. Medication Diluted definity 4ml given slow IV push to enhance endocardial definition. MMode/2D Measurements Calculations LVIDd: 5.4 cm IVSd: 1.3 cm Ao root diam: 3.7 cm LVIDs: 4.1 cm LVPWd: 1.3 cm FS: 23.7 % LAV(MOD-bp): 82.3 ml LVAd ap4: 37.4 cm2 SV(MOD-sp4): 63.5 ml LAV(MOD-bp) Indexed: 34.9 ml/m2 LVLd ap4: 8.2 cm SI(MOD-sp4): 27.0 ml/m2 LAV(MOD-sp2): 85.0 ml EDV(MOD-sp4): 140.0 ml LAV(MOD-sp4): 72.6 ml EDV(sp4-el): 145.7 ml LVAs ap4: 26.0 cm2 LVLs ap4: 7.2 cm ESV(MOD-sp4): 76.5 ml ESV(sp4-el): 79.3 ml EF(MOD-sp4): 45.4 % EF(sp4-el): 45.6 % SV(sp4-el): 66.4 ml LA A4 area: 23.4 cm2 LA dimension(2D): 4.5 cm RA A4 area: 22.2 cm2 TAPSE: 2.1 cm Time Measurements MV dec time: 0.16 sec Doppler Measurements Calculations MV E max jn: 85.1 cm/sec Lat Peak E' Jn: 14.6 cm/sec Med Peak E' Jn: 14.8 cm/sec MV A max jn: 54.3 cm/sec E/E' lat: 5.8 E/E' med: 5.7 MV E/A: 1.6 MV V2 max: 102.4 cm/sec MV P1/2t max jn: 104.1 cm/sec Ao V2 max: 102.8 cm/sec MV max P.2 mmHg MV P1/2t: 57.6 msec Ao max P.2 mmHg MV V2 mean: 51.6 cm/sec Ao V2 mean: 70.8 cm/sec MV mean P.3 mmHg MV dec slope: 529.5 cm/sec2 Ao mean P.3 mmHg MV V2 VTI: 26.7 cm MVA(P1/2t): 3.8 cm2 Ao V2 VTI: 19.8 cm AV (velocity ratio): 0.94 LV V1 max: 98.6 cm/sec PA V2 max: 88.9 cm/sec LV V1 max P.9 mmHg LV V1 mean P.3 mmHg LV V1 mean: 72.2 cm/sec LV V1 VTI: 18.7 cm ECHO/Echo Complete W/ Contrast Interpretation Summary Normal LV size. Mild concentric left ventricular hypertrophy. The estimated ejection fraction is 50 %. Normal diastology for age. Normal RV size. Normal systolic function. Unable to estimate RV systolic pressure due to insufficient tricuspid regurgitant envelope. Ordering Physician: Gamal Calero Performed By: Mukesh Mejias RCS 02/28/251634 Date Lavinia Kee MD CC: STEVE Sanders; Dr. Maira Yeh MD; Dr. Gamal Calero MD Date Dictated: 02/28/25 1529 Date Transcribed: 02/28/251634 Litigation Attorney: Signed Normal [facility] Echocardiogram study reportO rdered By: Lavinia Kee on 02-28-2025 Study report [facility] [address] [place] [address] Echo Complete W/ Contrast 02/28/25 1529 MR#: [id number] Acct: [id number] Name: ELIS BILLS Rep #:[id number] : 1960 64 From: Lavinia Richard Attending Dr: Dr. Maira Yeh MD Status: ADM IN Ordering Dr: Gamal Calero MD Date: Location: ICU Sex: M C Admitted: 02/27/25 Reason For Study Reason For Study: CHF Procedure This was a 2D Doppler, Color Flow transthoracic echocardiogram. The study was technically difficult. Contrast injection was performed. Exam performed portable in ICU/CCU. Left Ventricle Normal LV size. Mild concentric left ventricular hypertrophy. The estimated ejection fraction is 50 %. Normal diastology for age. Right Ventricle Normal RV size. Normal systolic function. Atria The left and right atria are normal. Mitral Valve The mitral valve is structurally normal. No prolapse or stenosis seen. Trivial mitral valve insufficiency. Tricuspid Valve Unable to estimate RV systolic pressure due to insufficient tricuspid regurgitant envelope. Pulmonic Valve Trivial pulmonic valve insufficiency. Great Vessels Normal sized aortic root. Pericardium/Pleural Epicardial fat. Medication Diluted definity 4ml given slow IV push to enhance endocardial definition. MMode/2D Measurements & Calculations LVIDd: 5.4 cm IVSd: 1.3 cm Ao root diam: 3.7 cm LVIDs: 4.1 cm LVPWd: 1.3 cm FS: 23.7 % LAV(MOD-bp): 82.3 ml LVAd ap4: 37.4 cm2 SV(MOD-sp4): 63.5 ml LAV(MOD-bp) Indexed: 34.9 ml/m2 LVLd ap4: 8.2 cm SI(MOD-sp4): 27.0 ml/m2 LAV(MOD-sp2): 85.0 ml EDV(MOD-sp4): 140.0 ml LAV(MOD-sp4): 72.6 ml EDV(sp4-el): 145.7 ml LVAs ap4: 26.0 cm2 LVLs ap4: 7.2 cm ESV(MOD-sp4): 76.5 ml ESV(sp4-el): 79.3 ml EF(MOD-sp4): 45.4 % EF(sp4-el): 45.6 % _ SV(sp4-el): 66.4 ml LA A4 area: 23.4 cm2 LA dimension(2D): 4.5 cm RA A4 area: 22.2 cm2 TAPSE: 2.1 cm Time Measurements MV dec time: 0.16 sec Doppler Measurements & Calculations MV E max jn: 85.1 cm/sec Lat Peak E' Jn: 14.6 cm/sec Med Peak E' Jn: 14.8 cm/sec MV A max jn: 54.3 cm/sec E/E' lat: 5.8 E/E' med: 5.7 MV E/A: 1.6 MV V2 max: 102.4 cm/sec MV P1/2t max jn: 104.1 cm/sec Ao V2 max: 102.8 cm/sec MV max P.2 mmHg MV P1/2t: 57.6 msec Ao max P.2 mmHg MV V2 mean: 51.6 cm/sec Ao V2 mean: 70.8 cm/sec MV mean P.3 mmHg MV dec slope: 529.5 cm/sec2 Ao mean P.3 mmHg MV V2 VTI: 26.7 cm MVA(P1/2t): 3.8 cm2 Ao V2 VTI: 19.8 cm AV (velocity ratio): 0.94 LV V1 max: 98.6 cm/sec PA V2 max: 88.9 cm/sec LV V1 max P.9 mmHg LV V1 mean P.3 mmHg LV V1 mean: 72.2 cm/sec LV V1 VTI: 18.7 cm ECHO/Echo Complete W/ Contrast Interpretation Summary Normal LV size. Mild concentric left ventricular hypertrophy. The estimated ejection fraction is 50 %. Normal diastology for age. Normal RV size. Normal systolic function. Unable to estimate RV systolic pressure due to insufficient tricuspid regurgitant envelope. Ordering Physician: Gamal Calero Performed By: Mukesh Mejias, FRANCISCO J 02/28/25 1635 Date _ Lavinia Kee MD CC: STEVE Sanders; Dr. Maira Yeh MD; Dr. Gamal Calero MD ~ Date Dictated: 02/28/25 1529 Date Transcribed: 02/28/251634 Litigation Attorney: Signed [facility] L501.4021on 02-28-2025 Trop T High Sen 48 ng/L High <=22 [facility] Comment on above: Performed By: #### L 100.0500, L500.2500 #### [facility] [address] [place], [place], [id number] Lactic Acidon 02-28-2025 Lactate [Moles/Vol] 1.1 mmol/L Normal 0.0-2.0 [facility] Comment on above: Order Comment: Y Performed By: #### L 100.0500, L500.2500 #### [facility] [address] [place], [address] Lactic acid measurementOrder ed By: Mechelle Guerra on 02-28-2025 Lactate [Moles/Vol] 1.1 mmol/L 0.0-2.0 [facility] Legionella Antigen Urineon 0 02-28-2025 LEGU Legionella Antigen result interpretation: L pneumo Ag Ur Ql Negative Presumptive negative for Legionella pneumophila serogroup 1 antigen in urine, suggesting no recent or current infection. Legionella Ag, Urine Negative (See interpretation below) Normal [facility] Comment on above: Performed By: #### M 300.4600, M300.4500 ####[facility] [address] [place], [place], [id number] Lipase measurementOrdered By : Gamal Calero on 02-28-2025 Lipase [Catalytic activity/Vol] 22 U/L Normal 13-75 [facility] Comment on above: Please note:LIPASE r evised reference range effective 22. New Lipase methodology. Expected to produce lower values than the previous assay method. NEW Reference Range: 13 - 75 U/L Result Comment: Iram lux note: LIPASE revised reference range effective 22. New Lipase methodology. Expected to produce lower values than the previous assay method. NEW Reference Range: 13 - 75 U/L Performed By: #### L 100.0500, L500.2500 #### [facility] [address] [place], [address] M100.019on 02-28-2025 M100.019 Negative Normal [facility] Comment on above: Performed By: #### M 100.019 ####[facility] [address] [place], [address] M8200.1000on 02-28-2025 M8200.1000 Normal Reference Range = Negative MRSA DNA Nose Ql YADIRA+probe GeneXpert Instrument, PCR method MRSA PCR MRSA NEGATIVE Normal [facility] Comment on above: Performed By: #### M 8200.1000 ####[facility] [address] [place], [address] Magnesiumon 02-28-2025 Magnesium [Mass/Vol] 2.2 mg/dL Normal 1.5-2.2 [facility] Comment on above: Performed By: #### L 503.7505, L501.5200, L501.2300 #### [facility] [address] [place], [address] Magnesium measurement (mass/ volume)Ordered By: Mechelle Guerra on 02-28-2025 Magnesium (Unsp spec) [Mass/Vol] 2.2 mg/dL 1.5-2.2 [facility] Nasal methicillin resistant Staphylococcus aureus (MRSA) DNA detection by PCROrdered By: Gamal Calero on 02-28-2025 MRSA DNA YADIRA+probe Ql (Nose) [facility] No Panel InformationOrdered By: Maira Yeh on 02-28-2025 Blood Gas Liter Flow 5.0 [facility] Venous Blood pH (Temp Corrected) 7.37 7.32-7.42 [facility] Phosphoruson 02-28-2025 Phosphate [Mass/Vol] 3.3 mg/dL Normal 2.7-4.5 [facility] Comment on above: Performed By: #### L 503.7505, L501.5200, L501.2300 #### [facility] [address] [place], [address] Pro- Brain NATRIURETIC PEPTI Pb 02-28-2025 Natriuretic peptide B (Bld) [Mass/Vol] 1621 pg/mL High <=900 [facility] Comment on above: Result Comment: Hear t Failure Unlikely: < 300 pg/mL Heart Failure Likely < 50 Years: > 450 pg/mL 50-75 Years: > 900 pg/mL >75 Years: > 1800 pg/mL Performed By: #### L 503.7505, L501.5200, L501.2300 #### [facility] [address] [place], [place], [address] [id number] By: Gamal Calero on 02-28-2025 SARS-CoV-2 (COVID-19) RNA YADIRA+probe Ql (Unsp spec) [facility] Strep pneumoniae Antig(UR,CS F)on 02-28-2025 STPAG URINE INTERPRETATION Strep pneumoniae Antig(UR,CSF) Strep pneumoniae Antig(UR,CSF) Negative Urine Presumptive negative for pneumococcal pneumonia, suggesting no current or recent pneumococcal infection. Infection due to S pneumoniae cannot be ruled out since the antigen present in the sample may be below the detection limit of the test. Strep pneumo Test Negative URINE (See interpretation below) Normal [facility] Comment on above: Performed By: #### M 300.4600, M300.4500 ####[facility] [address] [place], [place], [address] Troponin T HS 2 HRon 025 Trop T High Sen 52 ng/L High <=22 [facility] Comment on above: Performed By: #### L 100.0500, L500.2500 #### [facility] [address] [place], [address] Troponin T HS 4 HRon 025 Trop T High Sen 41 ng/L High <=22 [facility] Comment on above: Result Comment: UNLA BELED SPECIMEN RECEIVED. JOEL CHAUDHARY NOTIFIED FOR RECOLLECT Performed By: #### L 499.0043 #### [facility] [address] [place], [address] Troponin T.cardiac [Mass/vol ume] in Serum or Plasma by High sensitivity methodOrdered By: Mechelle Guerra on 02-28-2025 Troponin T.cardiac High sensitivity method [Mass/Vol] 41 ng/L High <22 [facility] Troponin T.cardiac High sensitivity method [Mass/Vol] 52 ng/L High <22 [facility] Troponin T.cardiac High sensitivity method [Mass/Vol] 48 ng/L High <22 [facility] Comment on above: Delta: 53 on Urine Legionella pneumophila antigen detectionOrdered By: Gamal Calero on 02-28-2025 L. pneumophila Ag Ql (U) [facility] Vancomycin, Trough Levelon 0 02-28-2025 VANCO, TROUGH 14.7 ug/mL Normal 5.0-15.0 [facility] Comment on above: Order Comment: Comme nts: Trough to be drawn 30 mins prior to scheduled [id number] Result Comment: Alexandro mmended goal trough ranges are generally 10-15 mcg/ml for less severe/complicated infections such as cellulitis or UTI and 15-20 mcg/ml for more severe/complicated infections such as bacteremia/sepsis, osteomyelitis, pneumonia or meningitis. Goal trough ranges should take into account indication, patient-specific factors and organism VAL. VANCOMYCIN STANDARED DRUG THERAPY TROUGH LEVEL: 5.0 - 15.0 mg/L VANCOMYCIN HIGH INTENSITY THERAPY TROUGH LEVEL: 15.0 - 20.0 mg/L High Intensity therapy recommended for serious life threatening infections include: - Meningitis -Endocarditis -Pneumonia (Ventilator/Healtcare Associated) -Sepsis PLEASE CONTACT PHARMACY SERVICES (#[id number]) FOR INTERPRETATION OF RESULTS. Performed By: #### L 100.0500, L500.2500 #### [facility] [address] [place], [address] Venous Blood Gason 5 Comment PT TEMP 40 DEGREES C Normal [facility] Comment on above: Order Comment: Resul ts entered by [facility] and verified by [employer] 02-28-25 07. Performed By: #### L 503.7505, L501.5200, L501.2300 #### [facility] [address] [place], [address] CO2 [Moles/Vol] 27 mmol/L Normal 23-33 [facility] Comment on above: Order Comment: Resul ts entered by [facility] and verified by [employer] 02-28-25 07. Performed By: #### L 503.7505, L501.5200, L501.2300 #### [facility] [address] [place], [address] HCO3 (Bld) [Moles/Vol] 26 mmol/L Normal 22-26 [facility] Comment on above: Order Comment: Resul ts entered by [employer] and verified by [employer] 02-28-25 07. Performed By: #### L 503.7505, L501.5200, L501.2300 #### [facility] [address] [place], [address] VBG BE 2 mmol/L Normal -1.0-3.5 [facility] Comment on above: Order Comment: Resul ts entered by [facility] and verified by [employer] 02-28-25 07. Performed By: #### L 503.7505, L501.5200, L501.2300 #### [facility] [address] [place], [address] VBG pCO2 40.5 mmHg Low 41-51 [facility] Comment on above: Order Comment: Resul ts entered by [employer] and verified by [employer] 02-28-25 07. Performed By: #### L 503.7505, L501.5200, L501.2300 #### [facility] [address] [place], [address] VBG pCO2 PT TEM 46.2 mmHg Normal 41-51 [facility] Comment on above: Order Comment: Resul ts entered by [facility] and verified by [email or web address] 02-28-25 07. Performed By: #### L 503.7505, L501.5200, L501.2300 #### [facility] [address] [place], [address] VBG pH 7.42 Normal 7.32-7.42 [facility] Comment on above: Order Comment: Resul ts entered by [facility] and verified by [email or web address] 02-28-25 07. Performed By: #### L 503.7505, L501.5200, L501.2300 #### [facility] [address] [place], [address] VBG pH(T) 7.37 Normal 7.32-7.42 [facility] Comment on above: Order Comment: Resul ts entered by [facility] and verified by [employer] 02-28-25 07. Performed By: #### L 503.7505, L501.5200, L501.2300 #### [facility] [address] [place], [address] VBG PO2 25 mmHg Normal 25-40 [facility] Comment on above: Order Comment: Resul ts entered by [facility] and verified by [email or web address] 02-28-25 07. Performed By: #### L 503.7505, L501.5200, L501.2300 #### [facility] [address] [place], [address] VBG PO2 PT TEM 30.4 Normal 25-40 [facility] Comment on above: Order Comment: Resul ts entered by [employer] and verified by [employer] 02-28-25 07. Performed By: #### L 503.7505, L501.5200, L501.2300 #### [facility] [address] [place], [address] VBG SO2 45 Low 50-70 [facility] Comment on above: Order Comment: Resul ts entered by [employer] and verified by [employer] 02-28-25704. Performed By: #### L 503.7505, L501.5200, L501.2300 #### [facility] [address] [place], [address] Blood Gas Type SERGIO Normal [facility] Comment on above: Order Comment: Resul ts entered by [employer] and verified by [employer] 02-28-25704. Performed By: #### L 503.7505, L501.5200, L501.2300 #### [facility] [address] [place], [address] LPM 5.0 Normal [facility] Comment on above: Order Comment: Resul ts entered by [employer] and verified by [employer] 02-28-25704. Performed By: #### L 503.7505, L501.5200, L501.2300 #### [facility] [address] [place], [address] O2 Delivery Dev Nasal Can Normal [facility] Comment on above: Order Comment: Resul ts entered by [employer] and verified by [employer] 02-28-25704. Performed By: #### L 503.7505, L501.5200, L501.2300 #### [facility] [address] [place], [address] SITE R BRACHIAL Normal [facility] Comment on above: Order Comment: Resul ts entered by [employer] and verified by [employer] 02-28-25704. Performed By: #### L 503.7505, L501.5200, L501.2300 #### [facility] [address] [place], [place], [address] Venous blood ammonia measure mentOrdered By: Gamal Calero on 02-28-2025 Ammonia (P) [Moles/Vol] 19.7 umol/L Normal 16-60 [facility] Comment on above: Performed By: #### L 100.0500, L500.2500 #### [facility] [address] [place], [place], [address] Venous blood base excess josy surementOrdered By: Maira Yeh on 02-28-2025 Base excess Calc (BldV) [Moles/Vol] 2 mmol/L -1.0-3.5 [facility] Venous blood bicarbonate josy surementOrdered By: Maira Yeh on 02-28-2025 HCO3 (Bld) [Moles/Vol] 26 mmol/L 22-26 [facility] Venous blood oxygen saturati on measurementOrdered By: Maira Yeh on 02-28-2025 Oxygen saturation in Blood 45 % Low 50-70 [facility] Venous blood pH measurementO rdered By: Maira Yeh on 02-28-2025 pH (BldV) 7.42 [pH] 7.32-7.42 [facility] Venous blood partial pressur e of carbon dioxide measurementOrdered By: Maira Yeh on 02-28-2025 CO2 (BldV) [Partial pressure] 40.5 mm[Hg] Low 41-51 [facility] Venous blood partial pressur e of oxygen measurementOrdered By: Maira Yeh on 02-28-2025 Oxygen (BldV) [Partial pressure] 25 mm[Hg] 25-40 [facility] Venous blood partial pressur e of oxygen measurement adjusted to patient's actual tempOrdered By: Maira Yeh on 02-28-2025 Oxygen adjusted to patient's actual temperature (BldV) [Partial pressure] 30.4 25-40 [facility] Abdomen/Pelvis W IV Cont ONL Yon 02-27-2025 Abdomen/Pelvis W IV Cont ONLY [facility] [address] [place] [address] Abdomen/Pelvis W IV Cont ONLY MR#: [id number] Acct: [id number] Name: ELIS BILLS Rep #: [id number] : 1960 M 64 From: Willy Arellano MD PCP: Anna Sanders PA-C Status: ADM IN Study: Abdomen/Pelvis W IV Cont ONLY Date of Exam: Exam# [id number] Ordering Dr: Austin Perez DO PROCEDURE: ABDOMEN/PELVIS W IV CONT ONLY 02/27/2025 REASON FOR EXAM: FEVER TECHNIQUE: ABDOMEN/PELVIS W IV CONT ONLY Coronal and Sagittal reconstruction series were provided. CONTRAST: Isovue 370 VOLUME: 96 mL One or more dose reduction techniques were used (e.g., Automated exposure control, adjustment of the mA and/or kV according to patient size, use of iterative reconstruction technique. RADIATION DOSE SUMMARY: CTDlvol: 54 mGy DLP: 2188 mGycm COMPARISON: No FINDINGS: Unremarkable liver, gallbladder, pancreas, spleen, adrenal glands, kidneys. No hydronephrosis. Normal bladder. Normal-sized prostate. No retroperitoneal or pelvic adenopathy. No free air. Nonobstructed bowel. There are 4 small lipomas, within the duodenal lumen, measuring up to approximately 2 cm. Normal appendix. No acute large bowel findings. Status post bilateral THR. Lumbar spine scoliosis and degeneration. Prior lumbar spine surgery. Old L1 compression deformity. CT/Abdomen/Pelvis W IV Cont ONLY IMPRESSION: No acute abdominopelvic findings. Refer to chest CT report for additional detail. Reading Location: [place] [address] CC: STEVE Sanders; Dr. Austin Perez DO Litigation Attorney: Signed Normal [facility] Alcohol, Blood (Medical)-Ser umon 02-27-2025 SERUM ETOH < 10.1 Normal <=10.0 [facility] Comment on above: Result Comment: This test is for medical purposes only. The legal definition of intoxication varies according to local law. Performed By: #### L 100.0500, L500.2500 #### [facility] [address] [place], [address] Amphetamine detection with 1 000 ng/mL as cutoffOrdered By: Austin Perez on 02-27-2025 Amphetamines Screen method >1000 ng/mL Ql (U) Negative < 200 ng/mL [facility] Basic Metabolic Profile (BMP )on 02-27-2025 BUN/CRE 16.7 RATIO Normal 10-20 [facility] Comment on above: Performed By: #### M 100.638 #### [facility] [address] [place], [address] Calcium [Mass/Vol] 8.5 mg/dL Normal 7.6-11.[address] [facility] Comment on above: Performed By: #### M 100.638 #### [facility] [address] [place], [address] Chloride [Moles/Vol] 98 mmol/L Normal 98-108 [facility] Comment on above: Performed By: #### M 100.638 #### [facility] [address] [place], [address] CO2 [Moles/Vol] 19.8 mmol/L Low 21.0-32.0 [facility] Comment on above: Performed By: #### M 100.638 #### [facility] [address] [place], [address] Creatinine [Mass/Vol] 1.17 mg/dL Normal 0.70-1.20 [facility] Comment on above: Performed By: #### M 100.638 #### [facility] [address] [place], [address] ECRCL 80.36 ml/min Normal 50-250 [facility] Comment on above: Performed By: #### M 100.638 #### [facility] [address] [place], [address] GAP 13 Normal 5-15 [facility] Comment on above: Performed By: #### M 100.638 #### [facility] [address] [place], [address] GFR/1.73 sq M.predicted among non-blacks MDRD (S/P/Bld) [Vol rate/Area] 69 mL/min/{1.73_m2} Normal >60 [facility] Comment on above: Result Comment: mL/m in/1.73m2 CKD-EPI Creatinine Equation (2020) Performed By: #### M 100.638 #### [facility] [address] [place], [address] Glucose [Mass/Vol] 123 mg/dL High 70-[address] [facility] Comment on above: Performed By: #### M 100.638 #### [facility] [address] [place], [address] Potassium [Moles/Vol] 4.1 mmol/L Normal 3.3-5.1 [facility] Comment on above: Performed By: #### M 100.638 #### [facility] [address] [place], [address] Sodium [Moles/Vol] 131 mmol/L Low 133-[address] [facility] Comment on above: Performed By: #### M 100.638 #### [facility] [address] [place], [address] Urea nitrogen [Mass/Vol] 20 mg/dL High 4-19 [facility] Comment on above: Performed By: #### M 100.638 #### [facility] [address] [place], [address] Blood cultureOrdered By: Leonid Guerra on 02-27-2025 Bacteria identified Cx Nom (Bld) No growth in 5 days. [facility] Brain W/WO Contraston 2024 Brain W/WO Contrast [facility] Services [address] [place] [address] Brain W/WO Contrast MR#: [id number] Acct: [id number] Name: ELIS BILLS Rep #: [id number] : 1960 M 64 From: John Nicole MD PCP: Anna Sanders PA-C Status: ADM IN Study: Brain W/WO Contrast Date of Exam: 02/27/25 Exam# [id number] Ordering Dr: Maira Yeh MD PROCEDURE: MR BRAIN W/WO CONTRAST 02/27/2025 REASON FOR EXAM: Acute encephalopathy; confusion, unsteady gait, fall TECHNIQUE: MRI BRAIN W/WO CONTRAST. Multiplanar and multisequence images were obtained. CONTRAST: Clariscan VOLUME: 23 mL COMPARISON: CT head 02/26/2025. FINDINGS: No regions of abnormal restricted diffusion to indicate recent infarct. No intracranial hemorrhage, extra-axial collection, mass effect, or hydrocephalus. No intracranial mass lesion, or pathologic enhancement. Mild generalized brain parenchymal volume loss. Mild-moderate chronic small-vessel ischemic-gliotic changes in the supratentorial white matter, with few scattered small foci of chronic lacunar infarct in the bilateral oconnell radiata white matter. There is abnormal confluence T2 FLAIR hyperintensity within the michael with sparing of the periphery, which may reflect prominent chronic gliosis, but can be seen with pontine myelinolysis/demyelin ation. Grossly unremarkable orbits. Preserved major intracranial vascular flow voids. Mild mucosal thickening in the floor of left maxillary sinus. No mastoid effusions. MRI/Brain W/WO Contrast IMPRESSION: 1. No acute infarct. No mass lesion or pathologic enhancement. 2. Mild-moderate chronic small-vessel ischemic changes with scattered small foci of old lacunar infarcts in the bilateral oconnell radiata white matter. 3. Confluent T2 hyperintensity within the central michael may reflect prominent chronic gliotic change, but can be seen with pontine myelinolysis/demyelin ation in the appropriate clinical setting. Reading Location: [id number] CC: STEVE Sanders; Dr. Maira Yeh MD Litigation Attorney: Signed Normal [facility] W/Diff, Automatedon 02-16 PLT EST ADEQUATE Normal ADEQ [facility] Comment on above: Performed By: #### M 100.638 #### [facility] [address] [place], [place], [address] SMEAR COMMENT SCANNED Normal [facility] Comment on above: Performed By: #### M 100.638 #### [facility] [address] [place], [place], [address] Calculated very low density lipoprotein (VLDL) cholesterol measurementOrdered By: Mechelle Guerra on 02-27-2025 Calculated very low density lipoprotein (VLDL) cholesterol measurement 12 mg/dL 5-40 [facility] Chest without Contraston Chest without Contrast [facility] [address] [place], [place] [address] Chest without Contrast MR#: [id number] Acct: [id number] Name: ELIS BILLS Rep #: [id number] : 1960 M 64 From: Willy Arellano MD PCP: Anna Sanders PA-C Status: ADM IN Study: Chest without Contrast Date of Exam: 02/27/25 Exam# [id number] Ordering Dr: Austin Perez DO PROCEDURE: CHEST WITHOUT CONTRAST 02/27/2025 REASON FOR EXAM: FEVER TECHNIQUE: Chest CT without contrast. Coronal and Sagittal reconstruction series were provided. One or more dose reduction techniques were used (e.g., Automated exposure control, adjustment of the mA and/or kV according to patient size, use of iterative reconstruction technique RADIATION DOSE SUMMARY: CTDlvol: 20 mGy DLP: 721 mGycm COMPARISON: Chest x-ray 02/26/2025 FINDINGS: Unremarkable base of neck and axilla. Normal esophagus. Upper limits of normal heart size. No acute vascular pathology on noncontrast scanning. Mediastinal and right hilar adenopathy, likely reactive. Thoracic spine degeneration. Mild scoliosis. No acute chest wall findings. No acute upper abdominal findings. Central airways are patent. There is right lower lobe consolidative airspace disease. There is under aeration at the left base. CT/Chest without Contrast IMPRESSION: Right lower lobe pneumonia. Reading Location: [place] [address] CC: STEVE Sanders; Dr. Austin Perez DO Litigation Attorney: Signed Normal [facility] Electrocardiogram reportOrde red By: Singh Dickey on 02-27-2025 EKG study [facility] [address] [place] [address] 12 Lead EKG 02/26/252108 MR#: [id number] Acct: [id number] Name: ELIS BILLS Rep #:[id number] : 1960 64 From: Singh nevarez MD Attending Dr: Dr. Maira Yeh MD Status: ADM IN Ordering Dr: Austin Perez DO Date: Location: ICU Sex: M C Admitted: 02/27/25 Test Reason : SEPSIS Blood Pressure : */* mmHG Vent. Rate : 105 BPM Atrial Rate : 105 BPM P-R Int : 144 ms QRS Dur : 118 ms QT Int : 384 ms P-R-T Axes : 32 70 16 degrees QTcB Int : 507 ms Sinus tachycardia with Premature atrial complexes Right bundle branch block Abnormal ECG Confirmed by Singh Dickey ([id number]), photo editor LARRY GIBSON ([id number]) on 02/27/2025 11:44:59 AM Referred By: Confirmed By: Singh Dickey 02/27/25 1145 Date _ Singh Dickey MD CC: STEVE Sanders; Dr. Maira Yeh MD; Dr. Austin Perez DO ~ Signed [facility] Other Folate [Mass/volume] in Seru m or PlasmaOrdered By: Mechelle Guerra on 02-27-2025 Folate [Mass/Vol] 30.40 ng/mL 4.60-34.[address] [facility] Folates,Serum (Folic Acid)on 02-27-2025 FOLATES,SERUM 30.40 ng/mL Normal 4.60-34.80 [facility] Comment on above: Performed By: #### L 100.0500, L500.2500 #### [facility] [address] [place], [address] H AND P Exam - [place] 02-27-2025 H&P Exam - Hospitalist [facility] Medical Records Department [address] [place] [address] H P Exam - Hospitalist 02/27/25 0001 MR#: [id number] Acct: [id number] Name: ELIS BILLS Rep #: [id number] : 1960 64 From: Mechelle Maya DO PCP: Anna Sanders PA-C Status:ADM IN Location: ICU ICU01-1 HPI - General General Date of Admission: 02/27/25 Date of Service: 02/27/25 Chief Complaint: AMS. HPI Narrative ELIS BILLS, is a 64 M with a past medical history of essential hypertension; on lisinopril, hyperlipidemia; on atorvastatin, obesity; with BMI of 38.7 this admission, history of tobacco abuse; with subsequent asthma/COPD on umeclidinium-vilanter ol, ipratropium-albuterol q. 4 hours prn plus montelukast, history of EtOH abuse; with patient admitted to drinking 8-9 beers daily on folate and thiamine supplementation, GERD; on esomeprazole and OA; with spinal stenosis of the lumbar region (without claudication) who presents to [facility] ER complaining of altered mental status. Mr. Bills is not a fully-reliable historian at this time so information was gathered from chart, medical staff and computer. According to the records his states that he had a fall yesterday evening and that he was not acting normally on the evening of February 26, 2025. She informed the ER physician that she was getting ready for work when he began complaining of pain in his knee and they both agreed he should try to sleep in the recliner. She then noted when she was getting ready to leave he was very confused so she activated EMS to have him brought in for further evaluation and treatment. He complains of fever and cough but is confused with no complaints of lightheadedness, visual changes, abdominal pain, nausea, vomiting, diarrhea, constipation, chest pain, palpitations, heart racing, dysuria, hematuria or rash. In the ER he was noted to have a Fever of 102.7 degrees Fahrenheit with Leukocytosis of 17.4K present on admission consistent with CT scan of the chest revealing RLL Pneumonia; likely due to aspiration complicated by Hyponatremia of 126 mmol/L present on admission suspected to be due to Beer Potomania with a UA negative for acute infection and head CT without contrast that revealed small vessel degenerative changes with no acute ICH, midline shift or mass effect with MRI recommended CT of the cervical spine without contrast that revealed no acute fracture, along with a CXR that revealed cardiomegaly with mild congestion a nd X-rays of the Left knee that revealed severe 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 He was then admitted to the ICU for ongoing care for a stay that is expected to extend beyond 2 midnights. [facility] Medical History Hyperlipemia Hypertension GERD (gastroesophageal reflux disease) Home Medications ???Medication ???Instructions ???Recorded ???Last Taken ???Type atorvastatin 80 mg tablet 80 mg PO DAILY 03/22/22 03/22/22 H istory clopidogrel 75 mg tablet 75 mg PO DAILY 03/22/22 03/22/22 H istory lisinopril 2.5 mg tablet 2.5 mg PO DAILY 03/22/22 03/22/22 History esomeprazole magnesium 40 mg 40 mg PO DAILY 02/26/25 Unknown Hi story capsule,delayed release folic acid 1 mg tablet 1 mg PO DAILY 02/26/25 Unknown His tory ipratropium 0.5 mg-albuterol 3 mg 3 ml continuous nebulization Q4H 02/26/25 Unknown History (2.5 mg base)/3 mL nebulization PRN PRN wheezing soln montelukast 10 mg tablet 10 mg PO DAILY 02/26/25 Unknown Hi story thiamine HCl (vitamin B1) 100 mg 100 mg PO DAILY 02/26/25 Unknown H istory tablet umeclidinium 62.5 mcg-vilanterol 1 ea inhalation DAILY 02/26/25 Unk nown History 25 mcg/actuation powdr for inhalation (Anoro Ellipta) Allergy/AdvReac Type Severity Reaction Status Date / Time Penicillins (PCN) Allergy Unknown - Verified 02/26/25 20:54 WAS A BABY Social History Smoking Status: Current every day smoker tobacco type: cigarettes ROS ROS Narrative ROS was limited by patient confusion and was completed as much as possible in HPI. Vital Signs Vital Signs Vital Signs: 02/26/25 20:50 02/26/25 20:54 02/26/25 20:59 Temperature 102.7 F H 102.7 F H Temperature Source Oral Oral Pulse Rate 106 H 99 Respiratory Rate 28 H 46 H Respiratory Effort Short of Breath Labored Respiratory Depth Shallow Respiratory Pattern Tachypnea Blood Pressure 154/75 H 142/66 H Blood Pressure Mean 101 91 Pulse Ox 94 96 Oxygen Delivery Method Room Air Room Air Room Air 02/26/25 21:01 02/26/25 21:54 02/26/25 22:00 Temperature 100.2 F H 100.2 F H Temperature Source (more content not included)... Normal [facility] Hemoglobin A1con 02-27-2025 HbA1c (Bld) [Mass fraction] 5.5 % Normal <=5.6 [facility] Comment on above: Result Comment: Norm al < 5.7 % Prediabetic 5.7 - 6.4 % Diabetic >or= 6.5 % Please note range changes. Performed By: #### M 100.638 #### [facility] [address] [place], [place] [address], [id number] Hemoglobin A1c percentageOrd ered By: Mechelle Guerra on 02-27-2025 HbA1c (Bld) [Mass fraction] 5.5 % <5.7 [facility] Comment on above: Normal < 5.7 % Predi abetic 5.7 - 6.4 % Diabetic >or= 6.5 % Please note range changes. LDL calc ser/plasOrdered By: Mechelle Guerra on 02-27-2025 Cholesterol in LDL [Mass/Vol] 32 mg/dL [facility] Lipid Profileon 02-27-2025 Cholesterol in LDL [Mass/Vol] 32 mg/dL Normal [facility] Comment on above: Performed By: #### M 100.638 #### [facility] [address] [place], [address] CHOL:HDL 1.95 Normal [facility] Comment on above: Performed By: #### M 100.638 #### [facility] [address] [place], [address] Cholesterol [Mass/Vol] 88 mg/dL Normal <=200 [facility] Comment on above: Performed By: #### M 100.638 #### [facility] [address] [place], [address] Cholesterol in HDL [Mass/Vol] 45 mg/dL Normal [facility] Comment on above: Performed By: #### M 100.638 #### [facility] [address] [place], [address] Cholesterol in VLDL [Mass/Vol] 12 mg/dL Normal 5-40 [facility] Comment on above: Performed By: #### M 100.638 #### [facility] [address] [place], [address] Triglyceride [Mass/Vol] 59 mg/dL Normal [facility] Comment on above: Result Comment: The drugs N-Acetylcysteine and Metamizole may falsely depress this assay. Performed By: #### M 100.638 #### [facility] [address] [place], [address] TRIG Normal [facility] Comment on above: Result Comment: MOVE D TO DIFFERENT REQ The drugs N-Acetylcysteine and Metamizole may falsely depress this assay. Performed By: #### L 100.0500, L500.2500 #### [facility] [address] [place], [address] CHOL Normal <=200 [facility] Comment on above: Result Comment: MOVE D TO DIFFERENT REQ Performed By: #### L 100.0500, L500.2500 #### [facility] [address] [place], [address] CHOL:HDL Normal [facility] Comment on above: Result Comment: MOVE D TO DIFFERENT REQ Performed By: #### L 100.0500, L500.2500 #### [facility] [address] [place], [address] CLDL Normal [facility] Comment on above: Result Comment: MOVE D TO DIFFERENT REQ Performed By: #### L 100.0500, L500.2500 #### [facility] [address] [place], [address] HDL Normal [facility] Comment on above: Result Comment: MOVE D TO DIFFERENT REQ Performed By: #### L 100.0500, L500.2500 #### [facility] [address] [place], [address] VLDL Normal 5-40 [facility] Comment on above: Result Comment: MOVE D TO DIFFERENT REQ Performed By: #### L 100.0500, L500.2500 #### [facility] [address] [place], [address] Magnetic resonance imaging r eportOrdered By: John Nicole on 02-27-2025 Study report [facility] Imaging Services [address] [place] [address] Brain W/WO Contrast MR#: [id number] Acct: [id number] Name: ELIS BILLS Rep #: [id number] : 1960 M 64 From: Cruz Nicole MD PCP: Anna Sanders PA-C Status: ADM IN Study:Brain W/WO Contrast Date of Exam: 02/27/25 Exam# [id number] Ordering Dr: Nimisha Yeh MD PROCEDURE: MR BRAIN W/WO CONTRAST 02/27/2025 REASON FOR EXAM: Acute encephalopathy; confusion, unsteady gait, fall TECHNIQUE: MRI BRAIN W/WO CONTRAST. Multiplanar and multisequence images were obtained. CONTRAST: Clariscan VOLUME: 23 mL COMPARISON: CT head 02/26/2025. FINDINGS: No regions of abnormal restricted diffusion to indicate recent infarct. No intracranial hemorrhage, extra-axial collection, mass effect, or hydrocephalus. No intracranial mass lesion, or pathologic enhancement. Mild generalized brain parenchymal volume loss. Mild-moderate chronic small-vessel ischemic-gliotic changes in the supratentorial white matter, with few scattered small foci of chronic lacunar infarct in the bilateral oconnell radiata white matter. There is abnormal confluence T2 FLAIR hyperintensity within the michael with sparing of the periphery, which may reflect prominent chronic gliosis, but can be seen with pontine myelinolysis/demyelin ation. Grossly unremarkable orbits. Preserved major intracranial vascular flow voids. Mild mucosal thickening in the floor of left maxillary sinus. No mastoid effusions. MRI/Brain W/WO Contrast IMPRESSION: 1. No acute infarct. No mass lesion or pathologic enhancement. 2. Mild-moderate chronic small-vessel ischemic changes with scattered small fociof old lacunar infarcts in the bilateral oconnell radiata white matter. 3. Confluent T2 hyperintensity within the central michael may reflect prominent chronic gliotic change, but can be seen with pontine myelinolysis/demyelin ation in the appropriate clinical setting. Reading Location: [facility] CC: STEVE Sanders; Dr. Maira Yeh MD ~ Litigation Attorney: Signed [facility] No Panel InformationOrdered By: Austin Perez on 02-27-2025 Urine Buprenorphine Qualitative Negative < 200 ng/mL [facility] Urine Oxycodone Screen Negative < 100 ng/mL [facility] Osmolality urOrdered By: Leonid Guerra on 02-27-2025 Osmolality (U) [Osmolality] 628 mOsm/KG >50 [facility] Comment on above: Normal Urine Referen ce Ranges Random: 50 - 1200 mOsm/kg H20 depending on fluid intake Random: >850 mOsm/kg after 12 hour fluid restriction 24 hour: ~300 - 900 mOsm/kg H2O Osmolality, Serumon 02-28-20 25 OSMOLALITY,SER 288 mOsm/KG Normal 280-301 [facility] Comment on above: Performed By: #### M 100.638 #### [facility] [address] [place], [place], [address] Osmolality, Urineon 02-28-20 25 OSMOLALITY,UR 628 mOsm/KG Normal [facility] Comment on above: Result Comment: Normal Urine Reference Ranges Random: 50 - 1200 mOsm/kg H20 depending on fluid intake Random: >850 mOsm/kg after 12 hour fluid restriction 24 hour: 300 - 900 mOsm/kg H2O Performed By: #### L 503.7505, L501.5200, L501.2300 #### [facility] [address] [place], [place], [id number] Quantitative urine opiates m easurementOrdered By: Austin Perez on 02-27-2025 Opiates Ql (U) Negative < 300 ng/mL [facility] RESPIRATORY PANEL MOLECULARo n 02-27-2025 RP PANEL ADENOVIRUS Not Detected INFLUENZA A Not Detected INFLUENZA A (SUBTYPE H1) Not Detected INFLUENZA A (SUBTYPE H3) Not Detected INFLUENZA B Not Detected HUMAN METAPHNEUMO Not Detected PARAINFLUENZA 1 Not Detected PARAINFLUENZA 2 Not Detected PARAINFLUENZA 3 Not Detected PARAINFLUENZA 4 Not Detected RHINOVIRUS Not Detected RSV A Not Detected RSV B Not Detected Normal [facility] Comment on above: Performed By: #### M 100.638 #### [facility] [address] [place], [place], [id number] Respiratory pathogens detect ion panel by molecular detection methodOrdered By: Mechelle Guerra on 02-27-2025 Respiratory pathogens DNA and RNA panel YADIRA+probe (Resp) [facility] Screening total cholesterol/ high density lipoprotein (HDL) cholesterol ratioOrdered By: Mechelle Guerra on 02-27-2025 Cholesterol.total/Carmen sterol in HDL [Mass ratio] 1.95 {ratio} [facility] Screening urine fentanyl josy surementOrdered By: Austin Perez on 02-27-2025 fentaNYL Screen Ql (U) Negative [facility] Serum or plasma cholesterol in HDL measurement (mass/volume)Ordered By: Mechelle Guerra on 02-27-2025 Cholesterol in HDL [Mass/Vol] 45 mg/dL >40 [facility] Serum or plasma cholesterol measurement (mass/volume)Ordered By: Mechelle Guerra on 02-27-2025 Cholesterol [Mass/Vol] 88 mg/dL <201 [facility] Serum or plasma ethanol sidra urement (mass/volume)Ordered By: Austin Perez on 02-27-2025 Ethanol [Mass/Vol] mg/dL <10.[address] [facility] Comment on above: This test is for med ical purposes only. The legal definition of intoxication varies according to local law. TSH DL <= 0.005 mIU/L QnOrde red By: Mechelle Guerra on 02-27-2025 TSH Qn 1.110 uIU/mL 0.300-4.200 [facility] Thyroid Stim Hormone (TSH)on 02-27-2025 TSH 1.110 uIU/mL Normal 0.300-4.200 [facility] Comment on above: Performed By: #### M 100.638 #### [facility] [address] [place], [place], [id number] Triglycerides measurementOrd ered By: Mechelle Guerra on 02-27-2025 Triglyceride [Mass/Vol] 59 mg/dL <199 [facility] Comment on above: The drugs N-Acetylcy steine and Metamizole may falsely depress this assay. Troponin T HS 4 HRon 025 Trop T High Sen 45 ng/L High <=22 [facility] Comment on above: Performed By: #### L 100.0500, L500.2500 #### [facility] [address] [place], [address] Urine Drug Screen (VISTA)on 02-27-2025 AMPHETAMINES Negative Normal <1000 ng/mL [facility] Comment on above: Performed By: #### L 100.0500, L500.2500 #### [facility] [address] [place], [address] BARBITIURATES Negative Normal < 200 ng/mL [facility] Comment on above: Performed By: #### L 100.0500, L500.2500 #### [facility] [address] [place] [address] BENZODIAZIPINE Negative Normal < 200 ng/mL [facility] Comment on above: Performed By: #### L 100.0500, L500.2500 #### [facility] [address] [place] [address] BUP Ur Drug Scr Negative Normal < 200 ng/mL [facility] Comment on above: Performed By: #### L 100.0500, L500.2500 #### [facility] [address] [place] [address] COCAINE Negative Normal < 300 ng/mL [facility] Comment on above: Performed By: #### L 100.0500, L500.2500 #### [facility] [address] [place] [address] Fentanyl Negative Normal [facility] Comment on above: Performed By: #### L 100.0500, L500.2500 #### [facility] [address] [place] [address] METHADONE Negative Normal < 300 ng/mL [facility] Comment on above: Performed By: #### L 100.0500, L500.2500 #### [facility] [address] [place] [address] OPIATES Negative Normal < 300 ng/mL [facility] Comment on above: Performed By: #### L 100.0500, L500.2500 #### [facility] [address] [place] [address] OXYCODONE Negative Normal < 100 ng/mL [facility] Comment on above: Performed By: #### L 100.0500, L500.2500 #### [facility] [address] [place] [address] PCP Negative Normal < 25 ng/mL [facility] Comment on above: Performed By: #### L 100.0500, L500.2500 #### [facility] [address] [place], [address] THC Negative Normal < 50 ng/mL [facility] Comment on above: Performed By: #### L 100.0500, L500.2500 #### [facility] [address] [place], [address] Urine benzodiazepine levelOr dered By: Austin Perez on 02-27-2025 Benzodiazepines Ql (U) Negative < 200 ng/mL [facility] Urine cocaine levelOrdered B y: Austin Perez on 02-27-2025 Cocaine Ql (U) Negative < 300 ng/mL [facility] Urine fwyxd-0-slohhpikdbysil abinol (THC) measurementOrdered By: Austin Perez on 02-27-2025 Cannabinoids Screen Ql (U) Negative < 50 ng/mL [facility] Urine phencyclidine (PCP) de tectionOrdered By: Austin Perez on 02-27-2025 Phencyclidine Ql (U) Negative < 25 ng/mL [facility] Vitamin B12on 02-27-2025 Cobalamin (Vitamin B12) [Mass/Vol] 229 pg/mL Normal 180-914 [facility] Comment on above: Performed By: #### M 100.638 #### [facility] [address] [place], [address] Vitamin B12 ser/plasOrdered By: Mechelle Guerra on 02-27-2025 Cobalamin (Vitamin B12) [Mass/Vol] 229 pg/mL 180-914 [facility] 12 Lead EKGon 02-26-2025 12 Lead EKG [facility] Cardiovascular Services [address] [place] [address] 12 Lead EKG 02/26/25 2109 MR#: [id number] Acct: [id number] Name: ELIS BILLS Rep #: [id number] : 1960 64 From: Singh Dickey MD Attending Dr: Dr. Maira Yeh MD Status: AD M IN Ordering Dr: Austin Perez DO Date: 02/26/25 Location: ICU Sex: M C Admitted: 02/27/25 Test Reason : SEPSIS Blood Pressure : */* mmHG Vent. Rate : 105 BPM Atrial Rate : 105 BPM P-R Int : 144 ms QRS Dur : 118 ms QT Int : 384 ms P-R-T Axes : 32 70 16 degrees QTcB Int : 507 ms Sinus tachycardia with Premature atrial complexes Right bundle branch block Abnormal ECG Confirmed by Singh Dickey ([id number]), photo editor LARRY GIBSON ([id number]) on 02/27/2025 11:44:59 AM Referred By: Confirmed By: Singh Dickey 02/27/25 1145 Date Singh Dickey MD CC: STEVE Sanders; Dr. Maira Yeh MD; Dr. Austin Perez DO Signed Normal [facility] Absolute lymphocyte countOrd ered By: Austin Perez on 02-26-2025 Lymphocytes Auto (Unsp spec) [#/Vol] 0.68 10*3/uL Low 0.83-4.51 [facility] Absolute neutrophil countOrd ered By: Austin Perez on 02-26-2025 Neutrophils (Bld) [#/Vol] 15.2 10*3/uL High 2.0-7.7 [facility] Activated partial thrombopla stin time (aPTT) in platelet poor plasma by coagulation aOrdered By: Austin Perez on 02-26-2025 aPTT Coag (PPP) [Time] 34.5 s 24.1-36.2 [facility] Anion gap in Serum or Plasma Ordered By: Austin Perez on 02-26-2025 Anion gap [Moles/Vol] 18 mmol/L High 5-15 [facility] Automated lymphocyte count a s percentage of total leukocytesOrdered By: Austin Perez on 02-26-2025 Lymphocytes/100 WBC Auto (Unsp spec) 3.9 % Low 19-41 [facility] BUN/creatinine ratioOrdered By: Austin Perez on 02-26-2025 Urea nitrogen/Creatinine [Mass ratio] 13.5 mg/mg 10-20 [facility] Basophil percentageOrdered B y: Austin Perez on 02-26-2025 Basophils/100 WBC (Bld) 0.5 % 0-1 [facility] Bilirubin Test strip Ql (U)O rdered By: Austin Perez on 02-26-2025 Bilirubin Ql (U) Negative Negative [facility] Bilirubin, totalOrdered By: Austin Perez on 02-26-2025 Bilirubin [Mass/Vol] 0.88 mg/dL 0.00-1.30 [facility] Blood cultureOrdered By: Jovan Perez on 02-26-2025 Bacteria identified Cx Nom (Bld) No growth in 5 days. [facility] Bacteria identified Cx Nom (Bld) No growth in 5 days. [facility] Brain/Head without Contrasto n 02-26-2025 Brain/Head without Contrast [facility] Imaging Services [address] [place] [address] Brain/Head without Contrast MR#: [id number] Acct: [id number] Name: ELIS BILLS Rep #: [id number] : 1960 M 64 From: Antonio Roman MD PCP: Anna Sanders PA-C Status: [facility] ER Study: Brain/Head without Contrast Date of Exam: 02/16 08/12 Exam# [id number] Ordering Dr: Austin Perez DO EXAM: CT Head Without Intravenous Contrast CLINICAL INDICATION: FALL ON THINNERS, AMS TECHNIQUE: Axial computed tomography images of the head/brain without intravenous contrast. This CT exam was performed using one or more of the following dose reduction techniques: automated exposure control, adjustment of the mA and/or kV according to patient size, and/or use of iterative reconstruction technique. COMPARISON: No relevant prior studies available. FINDINGS: BRAIN AND EXTRA-AXIAL SPACES: Brain atrophy is. Areas of decreased attenuation in the deep cerebral white matter are consistent with small vessel ischemic/degenerative changes. No acute intracranial hemorrhage, midline shift or mass effect. If symptoms persist, further evaluation with MRI is recommended. BONES/JOINTS: Unremarkable. No acute fracture. SOFT TISSUES: Unremarkable. SINUSES: Unremarkable as visualized. No acute sinusitis. MASTOID AIR CELLS: Unremarkable as visualized. No mastoid effusion. CT/Brain/Head without Contrast IMPRESSION: 1. Small vessel ischemic/degenerative changes. 2. No acute intracranial hemorrhage, midline shift or mass effect. If symptoms persist, further evaluation with MRI is recommended. Reading Location: [facility] CC: STEVE Sanders; Dr. Austin Perez DO Litigation Attorney: Signed Normal [facility] CBC W/Diff, Automatedon 02-16 Absolute Lymph 0.68 X10 3/uL Low 0.83-4.51 [facility] Comment on above: Performed By: #### L 503.7505, L501.5200, L501.2300 #### [facility] [address] [place], [address] Absolute Neut 15.2 X10 3/uL High 2.0-7.7 [facility] Comment on above: Performed By: #### L 503.7505, L501.5200, L501.2300 #### [facility] [address] [place], [address] Basophils/100 WBC (Bld) 0.5 % Normal 0-1 [facility] Comment on above: Performed By: #### L 503.7505, L501.5200, L501.2300 #### [facility] [address] [place], [address] Eosinophils/100 WBC (Bld) 0.3 % Normal 0-5 [facility] Comment on above: Performed By: #### L 503.7505, L501.5200, L501.2300 #### [facility] [address] [place], [address] Erythrocyte distribution width (RBC) [Ratio] 13.4 % Normal 11.6-14.6 [facility] Comment on above: Performed By: #### L 503.7505, L501.5200, L501.2300 #### [facility] [address] [place], [address] Hematocrit (Bld) [Volume fraction] 37.2 % Low 40-54 [facility] Comment on above: Performed By: #### L 503.7505, L501.5200, L501.2300 #### [facility] [address] [place], [address] Hemoglobin (Bld) [Mass/Vol] 13.1 g/dL Normal 13.0-16.5 [facility] Comment on above: Performed By: #### L 503.7505, L501.5200, L501.2300 #### [facility] [address] [place], [address] IG% 0.700 Normal 0.0-0.9 [facility] Comment on above: Result Comment: IG% - Immature Granulocytes (promyelocytes, myelocytes and metamyelocytes) > 1% indicates that a LEFT SHIFT is Present. Performed By: #### L 503.7505, L501.5200, L501.2300 #### [facility] [address] [place], [address] Lymphocytes/100 WBC (Bld) 3.9 % Low 19-41 [facility] Comment on above: Performed By: #### L 503.7505, L501.5200, L501.2300 #### [facility] [address] [place], [address] MCH (RBC) [Entitic mass] 29.8 pg Normal 27.0-32.0 [facility] Comment on above: Performed By: #### L 503.7505, L501.5200, L501.2300 #### [facility] [address] [place], [address] MCHC (RBC) [Mass/Vol] 35.2 g/dL Normal 32-36 [facility] Comment on above: Performed By: #### L 503.7505, L501.5200, L501.2300 #### [facility] [address] [place], [address] MCV (RBC) [Entitic vol] 84.7 fL Normal 80-94 [facility] Comment on above: Performed By: #### L 503.7505, L501.5200, L501.2300 #### [facility] [address] [place], [address] Monocytes/100 WBC (Bld) 7.3 % Normal 0-10 [facility] Comment on above: Performed By: #### L 503.7505, L501.5200, L501.2300 #### [facility] [address] [place], [address] Neutrophils/100 WBC (Bld) 87.3 % High 47-70 [facility] Comment on above: Performed By: #### L 503.7505, L501.5200, L501.2300 #### [facility] [address] [place], [address] Nucleated RBC (Bld) [#/Vol] 0 10*3/uL Normal 0-5 [facility] Comment on above: Performed By: #### L 503.7505, L501.5200, L501.2300 #### [facility] [address] [place], [address] Platelet mean volume (Bld) [Entitic vol] 9.5 fL Normal 6.2-12.0 [facility] Comment on above: Performed By: #### L 503.7505, L501.5200, L501.2300 #### [facility] [address] [place], [address] Platelets (Bld) [#/Vol] 315 10*3/uL Normal 150-450 [facility] Comment on above: Performed By: #### L 503.7505, L501.5200, L501.2300 #### [facility] [address] [place], [address] RBC (Bld) [#/Vol] 4.39 10*6/uL Low 4.6-6.2 [facility] Comment on above: Performed By: #### L 503.7505, L501.5200, L501.2300 #### [facility] [address] [place], [address] RDW SD 42.0 fl Normal 35.1-43.9 [facility] Comment on above: Performed By: #### L 503.7505, L501.5200, L501.2300 #### [facility] [address] [place], [address] WBC (Bld) [#/Vol] 17.4 10*3/uL High 4.4-11.0 [facility] Comment on above: Performed By: #### L 503.7505, L501.5200, L501.2300 #### [facility] [address] [place], [address] CO2 (BldV) [Moles/Vol]Ordere d By: Austin Perez on 02-26-2025 CO2 [Moles/Vol] 25 mmol/L 23-33 [facility] Carbon dioxide, total [Moles /volume] in Central venous bloodOrdered By: Austin Perez on 02-26-2025 CO2 [Moles/Vol] 18.9 mmol/L Low 21.0-32.0 [facility] Chest PA and Lateralon 02-26 Chest PA and Lateral [facility] Imaging Services [address] [place] [address] Chest PA and Lateral MR#: [id number] Acct: [id number] Name: ELIS BILLS Rep #: [id number] : 1960 M 64 From: Antonio Roman MD PCP: Anna Sanders PA-C Status: REG ER Study: Chest PA and Lateral Date of Exam: 02/26/25 Exam# [id number] Ordering Dr: Austin Perez DO EXAM: XR Chest, 2 Views CLINICAL INDICATION: AMS TECHNIQUE: Frontal and lateral views of the chest. COMPARISON: No relevant prior studies available. FINDINGS: LUNGS AND PLEURAL SPACES: See below. HEART: Cardiomegaly with mild congestion. MEDIASTINUM: Unremarkable. Normal mediastinal contour. BONES/JOINTS: Unremarkable. No acute fracture. RAD/Chest PA and Lateral IMPRESSION: Cardiomegaly with mild congestion. Reading Location: [id number] CC: STEVE Sanders; Dr. Austin Perez DO Litigation Attorney: Signed Normal [facility] Chloride assayOrdered By: Minh Perez on 02-26-2025 Chloride [Moles/Vol] 90 mmol/L Low 98-108 [facility] Comprehensive Metabolic Prof ilon 02-26-2025 Albumin [Mass/Vol] 4.1 g/dL Normal 3.4-4.[address] [facility] Comment on above: Performed By: #### L 503.7505, L501.5200, L501.2300 #### [facility] [address] [place], [address] Albumin/Globulin [Mass ratio] 1.1 {ratio} Normal 0.9-2.4 [facility] Comment on above: Performed By: #### L 503.7505, L501.5200, L501.2300 #### [facility] [address] [place], [address] ALK PHOS 110 U/L Normal 40-129 [facility] Comment on above: Performed By: #### L 503.7505, L501.5200, L501.2300 #### [facility] [address] [place], [address] ALT [Catalytic activity/Vol] 18 U/L Normal <=46 [facility] Comment on above: Performed By: #### L 503.7505, L501.5200, L501.2300 #### [facility] [address] [place], [address] AST [Catalytic activity/Vol] 42 U/L High <=37 [facility] Comment on above: Performed By: #### L 503.7505, L501.5200, L501.2300 #### [facility] [address] [place], [address] Bilirubin [Mass/Vol] 0.88 mg/dL Normal 0.00-1.30 [facility] Comment on above: Performed By: #### L 503.7505, L501.5200, L501.2300 #### [facility] [address] [place], [address] BUN/CRE 13.5 RATIO Normal 10-20 [facility] Comment on above: Performed By: #### L 503.7505, L501.5200, L501.2300 #### [facility] [address] [place], [address] Calcium [Mass/Vol] 9.3 mg/dL Normal 7.6-11.[address] [facility] Comment on above: Performed By: #### L 503.7505, L501.5200, L501.2300 #### [facility] [address] [place], [address] Chloride [Moles/Vol] 90 mmol/L Low 98-108 [facility] Comment on above: Performed By: #### L 503.7505, L501.5200, L501.2300 #### [facility] [address] [place], [address] CO2 [Moles/Vol] 18.9 mmol/L Low 21.0-32.0 [facility] Comment on above: Performed By: #### L 503.7505, L501.5200, L501.2300 #### [facility] [address] [place], [address] Creatinine [Mass/Vol] 1.19 mg/dL Normal 0.70-1.20 [facility] Comment on above: Performed By: #### L 503.7505, L501.5200, L501.2300 #### [facility] [address] [place], [address] ECRCL 78.80 ml/min Normal 50-250 [facility] Comment on above: Performed By: #### L 503.7505, L501.5200, L501.2300 #### [facility] [address] [place], [address] GAP 18 High 5-15 [facility] Comment on above: Performed By: #### L 503.7505, L501.5200, L501.2300 #### [facility] [address] [place], [address] GFR/1.73 sq M.predicted among non-blacks MDRD (S/P/Bld) [Vol rate/Area] 68 mL/min/{1.73_m2} Normal >60 [facility] Comment on above: Result Comment: mL/m in/1.73m2 CKD-EPI Creatinine Equation (2020) Performed By: #### L 503.7505, L501.5200, L501.2300 #### [facility] [address] [place], [address] Globulin (S) [Mass/Vol] 3.8 g/dL Normal 2.2-4.2 [facility] Comment on above: Performed By: #### L 503.7505, L501.5200, L501.2300 #### [facility] [address] [place], [address] Glucose [Mass/Vol] 111 mg/dL High 70-[address] [facility] Comment on above: Performed By: #### L 503.7505, L501.5200, L501.2300 #### [facility] [address] [place], [address] Potassium [Moles/Vol] 4.0 mmol/L Normal 3.3-5.1 [facility] Comment on above: Result Comment: Hemo lysis present, Results??could be affected. ?? Hemolysis present, Results??could be affected. ?? Hemolysis present, Results??could be affected. ?? Performed By: #### L 503.7505, L501.5200, L501.2300 #### [facility] [address] [place], [address] Sodium [Moles/Vol] 126 mmol/L Low 133-[address] [facility] Comment on above: Performed By: #### L 503.7505, L501.5200, L501.2300 #### [facility] [address] [place], [address] T PROT 7.9 g/dL Normal 5.9-8.4 [facility] Comment on above: Performed By: #### L 503.7505, L501.5200, L501.2300 #### [facility] [address] [place], [address] Urea nitrogen [Mass/Vol] 16 mg/dL Normal 4-19 [facility] Comment on above: Performed By: #### L 503.7505, L501.5200, L501.2300 #### [facility] [address] [place], [address] Emergency Department Summary on 02-26-2025 Emergency Department Summary [facility] Medical Records Department [address] [place] [address] Emergency Department Summary 02/26/25 MR#: [id number] Acct: [id number] Name: ELIS BILLS Rep #: [id number] : 1960 64 From: Austin Perez DO PCP: Anna Sanders PA-C Status:REG ER Location: ED HPI History of Present Illness Chief Complaint: Alt LOC Narrative Narrative: Patient is a 64-year-old male with past medical history of hypertension, hyperlipidemia, GERD who presented to the emergency department chief complaint altered mental status. Per at bedside she states that yesterday evening he had a fall and notes that tonight he was not acting his normal self. She notes that she was try to get ready for work and he had been complaining that his knee was bothering him therefore she told him that he should sleep downstairs in the recliner tonight and he said yes that is a good idea. States that when she had to leave he was attempting to go up stairs and was very confused. She states that she then decided to call EMS to have her brought here for further evaluation management. They deny any blood thinning medications [facility] Medical History Hyperlipemia Hypertension GERD (gastroesophageal reflux disease) Home Medications ???Medication ???Instructions ???Recorded ???Last Taken ???Type atorvastatin 80 mg tablet 80 mg PO DAILY 03/22/22 03/22/22 H istory clopidogrel 75 mg tablet 75 mg PO DAILY 03/22/22 03/22/22 H istory lisinopril 2.5 mg tablet 2.5 mg PO DAILY 03/22/22 03/22/22 History esomeprazole magnesium 40 mg 40 mg PO DAILY 02/26/25 Unknown Hi story capsule,delayed release folic acid 1 mg tablet 1 mg PO DAILY 02/26/25 Unknown His tory ipratropium 0.5 mg-albuterol 3 mg 3 ml continuous nebulization Q4H 02/26/25 Unknown History (2.5 mg base)/3 mL nebulization PRN PRN wheezing soln montelukast 10 mg tablet 10 mg PO DAILY 02/26/25 Unknown Hi story thiamine HCl (vitamin B1) 100 mg 100 mg PO DAILY 02/26/25 Unknown H istory tablet umeclidinium 62.5 mcg-vilanterol 1 ea inhalation DAILY 02/26/25 Unk nown History 25 mcg/actuation powdr for inhalation (Anoro Ellipta) Allergy/AdvReac Type Severity Reaction Status Date / Time Penicillins (PCN) Allergy Unknown - Verified 02/26/25 20:54 WAS A BABY Social History Smoking Status: Current every day smoker tobacco type: cigarettes ROS ROS ED ROS Narrative Constitutional: Complains of fever denies any headaches, lightheadedness Eyes: Denies double vision blurry vision changes vision Cardiovascular: Denies chest pain Respiratory: Complains of cough denies shortness of breath Abdomen: Denies abdominal pain nausea vomit diarrhea : Denies any urinary symptoms Neurological: Denies any numbness, weakness, tingling Musculoskeletal: Denies any back pain Skin: Denies any rashes or lesions EXAM Physical Exam Narrative Exam Narrative: General: Patient lying in bed did appear to be not feeling well overall Head: atraumatic, normocephalic Eyes: PERRL bilaterally, EOMI Black no conjunctival injection noted Neck: Soft, supple, trachea midline Cardiovascular: Patient tachycardic with a regular rhythm Respiratory: Clear to auscultation bilaterally Abdomen: No tenderness to palpation, soft, nondistended Extremities: Radial pulses +2/4 in the bilateral extremities, +5/5 strength noted in the bilateral upper and lower extremities Neurological: Patient following commands knew that he was at the hospital was confused on the year Skin: Warm, dry, diaphoretic Const Vital Signs: 02/26/25 20:50 02/26/25 20:54 02/26/25 20:59 Temperature 102.7 F H 102.7 F H Temperature Source Oral Oral Pulse Rate 106 H 99 Respiratory Rate 28 H 46 H Respiratory Effort Short of Breath Labored Respiratory Depth Shallow Respiratory Pattern Tachypnea Blood Pressure 154/75 H 142/66 H Blood Pressure Mean 101 91 Pulse Ox 94 96 Oxygen Delivery Method Room Air Room Air Room Air 02/26/25 21:01 02/26/25 21:54 02/26/25 22:00 Temperature 100.2 F H 100.2 F H Temperature Source Oral Oral Pulse Rate 94 91 Respiratory Rate 28 H 27 H Respiratory Effort Respiratory Depth Respiratory Pattern Blood Pressure 139/70 H 139/70 H Blood Pressure Mean 93 93 Pulse Ox 97 94 94 Oxygen Delivery Method Room Air Room Air Room Air 02/26/25 22:59 02/27/25 00:00 Temperature 99.2 F H 98.3 F Temperature Source Oral Oral Pulse Rate 83 80 Respiratory Rate 33 H 16 Respiratory Effort Respiratory Depth Respiratory Pattern Blood Pressure 138/74 H 132/70 H Blood Pressure Mean 95 90 Pulse Ox 100 94 Oxyg (more content not included)... Normal [facility] Eosinophil percentageOrdered By: Austin Perez on 02-26-2025 Eosinophils/100 WBC (Bld) 0.3 % 0-5 [facility] Erythrocyte distribution wid th ratioOrdered By: Austin Perez on 02-26-2025 Erythrocyte distribution width (RBC) [Ratio] 13.4 % 11.6-14.6 [facility] Erythrocyte distribution wid th standard deviationOrdered By: Austin Perez on 02-26-2025 Erythrocyte distribution width (RBC) [Ratio] 42.0 fl 35.1-43.9 [facility] Glomerular filtration rate ( GFR) estimation/1.73 sq m using serum, plasma, or whole bOrdered By: Austin Perez on 02-26-2025 GFR/1.73 sq M.predicted among non-blacks MDRD (S/P/Bld) [Vol rate/Area] 68 mL/min/{1.73_m2} >60 [facility] Comment on above: mL/min/1.73m2 CKD-EP I Creatinine Equation (2020) Hematocrit Auto (Bld) [Volum e fraction]Ordered By: Austin Perez on 02-26-2025 Hematocrit (Bld) [Volume fraction] 37.2 % Low 40-54 [facility] Hemoglobin measurementOrdere d By: Austin Perez on 02-26-2025 Hemoglobin (Bld) [Mass/Vol] 13.1 g/dL 13.0-16.5 [facility] Hyaline casts LM.LPF (Urine sed) [#/Area]Ordered By: Austin Perez on 02-26-2025 Hyaline casts (Urine sed) [#/Area] 5 /[LPF] 0-5 [facility] Immature granulocytes/100 WB C Auto (Bld)Ordered By: Austni Perez on 02-26-2025 Immature granulocytes/100 WBC (Bld) 0.700 % 0.0-0.9 [facility] Comment on above: IG% - Immature Granu locytes (promyelocytes, myelocytes and metamyelocytes) > 1% indicates that a LEFT SHIFT is Present. International normalized rat io (INR) calculationOrdered By: Austin Perez on 02-26-2025 INR Coag (Bld) [Relative time] 1.2 {INR} [facility] Ketones Test strip Ql (U)Ord ered By: Austin Perez on 02-26-2025 Ketones Ql (U) 5 mg/dl High Negative [facility] Knee 4 or More Viewson 02-26 Knee 4 or More Views [facility] Imaging Services [address], [place] [address] Knee 4 or More Views MR#: [id number] Acct: [id number] Name: ELIS BILLS Rep #: [id number] : 1960 M 64 From: Antonio Roman MD PCP: Anna Sanders PA-C Status: REG ER Study: Knee 4 or More Views Date of Exam: 02/26/25 Exam# [id number] Ordering Dr: Austin Perez DO EXAM: XR Left Knee Complete, 4 or More Views CLINICAL INDICATION: FALL TECHNIQUE: Four or more views of the left knee. COMPARISON: No relevant prior studies available. 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 No acute fracture. No dislocation. SOFT TISSUES: Unremarkable. RAD/Knee 4 or More Views IMPRESSION: Degenerative changes as above. Reading Location: [id number] CC: STEVE Sanders; Dr. Austin Perez DO Litigation Attorney: Signed Normal [facility] L501.4021on 02-26-2025 Trop T High Sen 53 ng/L High <=22 [facility] Comment on above: Result Comment: Crit ical Result(s) Called at: 2226 by: KIP DUEÑAS TO ARIS REAL??Results read back by same. Performed By: #### L 503.7505, L501.5200, L501.2300 #### [facility] [address] [place], [place], [address] Laboratory - Chemistry and C hemistry - challengeOrdered By: Austin Perez on 02-26-2025 AST [Catalytic activity/Vol] 42 U/L High <38 [facility] Lactic Acidon 02-26-2025 Lactate [Moles/Vol] mmol/L Normal 0.0-2.0 [facility] Comment on above: Order Comment: Y Performed By: #### L 503.7505, L501.5200, L501.2300 #### [facility] [address] [place], [place], [address] Lactic acid measurementOrder ed By: Austin Perez on 02-26-2025 Lactate [Moles/Vol] mmol/L 0.0-2.0 [facility] MCV (mean corpuscular volume ) determinationOrdered By: Austin Perez on 02-26-2025 MCV (RBC) [Entitic vol] 84.7 fL 80-94 [facility] Mean corpuscular hemoglobin (MCH) determinationOrdered By: Austin Perez on 02-26-2025 MCH (RBC) [Entitic mass] 29.8 pg 27.0-32.0 [facility] Mean corpuscular hemoglobin concentration (MCHC) determinationOrdered By: Austin Perez on 02-26-2025 MCHC (RBC) [Mass/Vol] 35.2 g/dL 32-36 [facility] Mean platelet volume determi nationOrdered By: Austin Perez on 02-26-2025 Platelet mean volume (Bld) [Entitic vol] 9.5 fL 6.2-12.0 [facility] Microscopic analysis of urin e for red blood cells (RBC)Ordered By: Austin Perez on 02-26-2025 Microscopic analysis of urine for red blood cells (RBC) 0-5 SEEN /hpf 0-5 [facility] Monocyte percentageOrdered B y: Austin Perez on 02-26-2025 Monocytes/100 WBC (Bld) 7.3 % 0-10 [facility] Mucus LM Ql (Urine sed)Order ed By: Austin Perez on 02-26-2025 Mucus Ql (Urine sed) 0 SEEN /hpf [facility] Neutrophil percentageOrdered By: Austin Perez on 02-26-2025 Neutrophils/100 WBC (Bld) 87.3 % High 47-70 [facility] Nitrite Test strip Ql (U)Ord ered By: Austin Perez on 02-26-2025 Nitrite Ql (U) Negative Negative [facility] No Panel InformationOrdered By: Austin Perez on 02-26-2025 Blood Gas Sample Site Not entered [facility] Blood Gas Specimen Type SERGIO [facility] Oxygen Delivery Device Not entered [facility] Nucleated red blood cell per centageOrdered By: Austin Perez on 02-26-2025 Nucleated RBC/100 WBC (Bld) [Ratio] 0 % 0-5 [facility] Partial Thromboplast Timeon 02-26-2025 aPTT Coag (Bld) [Time] 34.5 s Normal 24.1-36.2 [facility] Comment on above: Performed By: #### L 503.7505, L501.5200, L501.2300 #### [facility] [place], [address] Platelet countOrdered By: Minh Perez on 02-26-2025 Platelets (Bld) [#/Vol] 315 10*3/uL 150-450 [facility] Potassium measurement (mass/ volume)Ordered By: Austin Perez on 02-26-2025 Potassium (Unsp spec) [Mass/Vol] 4.0 mmol/L 3.3-5.1 [facility] Comment on above: Hemolysis present, R esults could be affected. Hemolysis present, Results could be affected. Hemolysis present, Results could be affected. Protein Test strip Ql (U)Ord ered By: Austin Perez on 02-26-2025 Protein Ql (U) 100 mg/dl High Negative [facility] Prothrombin Time w/INRon INR Coag (PPP) [Relative time] 1.2 {INR} Normal [facility] Comment on above: Performed By: #### L 503.7505, L501.5200, L501.2300 #### [facility] [address] [place], [address] PT Coag (PPP) [Time] 15.3 s High 11.7-14.9 [facility] Comment on above: Performed By: #### L 503.7505, L501.5200, L501.2300 #### [facility] [address] [place], [address] Prothrombin timeOrdered By: Austin Perez on 02-26-2025 PT Coag (PPP) [Time] 15.3 s High 11.7-14.9 [facility] RBC Auto (Bld) [#/Vol]Ordere d By: Austin Perez on 02-26-2025 RBC (Bld) [#/Vol] 4.39 10*6/uL Low 4.6-6.2 [facility] Serum creatinine measurement (mass/volume)Ordered By: Austin Perez on 02-26-2025 Creatinine [Mass/Vol] 1.19 mg/dL 0.70-1.20 [facility] Serum globulin measurementOr dered By: Austin Perez on 02-26-2025 Globulin (S) [Mass/Vol] 3.8 g/dL 2.2-4.2 [facility] Serum glucose measurement (m ass/volume)Ordered By: Austin Perez on 02-26-2025 Glucose [Mass/Vol] 111 mg/dL High 70-[address] [facility] Serum or plasma alanine betts otransferase (ALT) measurementOrdered By: Austin Perez on 02-26-2025 ALT [Catalytic activity/Vol] 18 U/L <47 [facility] Serum or plasma albumin sidra urement (mass/volume)Ordered By: Austin Perez on 02-26-2025 Albumin [Mass/Vol] 4.1 g/dL 3.4-4.[address] [facility] Serum or plasma albumin/glob ulin mass ratioOrdered By: Austin Perez on 02-26-2025 Albumin/Globulin [Mass ratio] 1.1 {ratio} 0.9-2.4 [facility] Serum or plasma alkaline ronal sphatase measurementOrdered By: Austin Perez on 02-26-2025 ALP [Catalytic activity/Vol] 110 U/L 40-129 [facility] Serum or plasma calcium sidra urement (mass/volume)Ordered By: Austin Perez on 02-26-2025 Calcium [Mass/Vol] 9.3 mg/dL 7.6-11.[address] [facility] Serum or plasma urea nitroge n measurement (mass/volume)Ordered By: Austin Perez on 02-26-2025 Urea nitrogen [Mass/Vol] 16 mg/dL 4-19 [facility] Sodium levelOrdered By: Ani Perez on 02-26-2025 Sodium [Moles/Vol] 126 mmol/L Low 133-[address] [facility] Spine Cervical without Contr ason 02-26-2025 Spine Cervical without Contras [facility] Imaging Services [facility] [place], [place] [address] Spine Cervical without Contras MR#: [id number] Acct: [id number] Name: ELIS BILLS Rep #: [id number] : 1960 M 64 From: Antonio Roman MD PCP: Anna Sanders PA-C Status: REG ER Study: Spine Cervical without Contras Date of Exam: 0 02/26/25 Exam# [id number] Ordering Dr: Austin Perez DO EXAM: CT Cervical Spine Without Intravenous Contrast CLINICAL INDICATION: FALL TECHNIQUE: Axial computed tomography images of the cervical spine without intravenous contrast. This CT exam was performed using one or more of the following dose reduction techniques: automated exposure control, adjustment of the mA and/or kV according to patient size, and/or use of iterative reconstruction technique. COMPARISON: No relevant prior studies available. FINDINGS: VERTEBRAE: 3 mm sclerotic lesion of C4 could be a bone island. No acute fracture. DISCS/SPINAL CANAL/NEURAL FORAMINA: No acute findings. No significant spinal canal stenosis. SOFT TISSUES: Unremarkable. OTHER FINDINGS: Degenrative cervical. CT/Spine Cervical without Contras IMPRESSION: No acute fracture. Reading Location: [facility] CC: STEVE Sanders; Dr. Austin Perez, Litigation Attorney: Signed Normal [facility] Squamous epithelial cells de tection in urine sediment by light microscopyOrdered By: Austin Perez on 02-26-2025 Epithelial cells.squamous LM Ql (Urine sed) 0-5 SEEN /hpf 0-5 [facility] Total proteinOrdered By: Jovan Perez on 02-26-2025 Protein [Mass/Vol] 7.9 g/dL 5.9-8.[address] [facility] Troponin T HS 2 HRon 025 Trop T High Sen 49 ng/L High <=22 [facility] Comment on above: Performed By: #### L 499.0042 #### [facility] [facility] [address] [place], [address] Troponin T.cardiac [Mass/vol ume] in Serum or Plasma by High sensitivity methodOrdered By: Austin Perez on 02-26-2025 Troponin T.cardiac High sensitivity method [Mass/Vol] 49 ng/L High <22 [facility] Troponin T.cardiac High sensitivity method [Mass/Vol] 53 ng/L High <22 [facility] Comment on above: Critical Result(s) C alled at: 2227 by: KIP DUEÑAS TO ARIS REAL Results read back by same. Urinalysis, Completeon 02-26 EPI,SQUAMOUS 0-5 SEEN Normal 0-5 [facility] Comment on above: Order Comment: CLEAN CATCH Performed By: #### L 503.7505, L501.5200, L501.2300 #### [facility] [address] [place], [address] EPI,RENAL 0-5 SEEN Normal 0-5 [facility] Comment on above: Order Comment: CLEAN CATCH Performed By: #### L 503.7505, L501.5200, L501.2300 #### [facility] [address] [place], [address] RBC 0-5 SEEN Normal 0-5 [facility] Comment on above: Order Comment: CLEAN CATCH Performed By: #### L 503.7505, L501.5200, L501.2300 #### [facility] [address] [place], [address] WBC 0-5 SEEN Normal 0-5 [facility] Comment on above: Order Comment: CLEAN CATCH Performed By: #### L 503.7505, L501.5200, L501.2300 #### [facility] [address] [place], [address] BACTERIA 3+ /hpf Normal None Seen [facility] Comment on above: Order Comment: CLEAN CATCH Performed By: #### L 503.7505, L501.5200, L501.2300 #### [facility] [address] [place], [address] CAST,FINE GRAN 10-25 SEEN Normal 0-5 [facility] Comment on above: Order Comment: CLEAN CATCH Performed By: #### L 503.7505, L501.5200, L501.2300 #### [facility] [address] [place], [address] CAST,HYALINE 5-10 SEEN Normal 0-5 [facility] Comment on above: Order Comment: CLEAN CATCH Performed By: #### L 503.7505, L501.5200, L501.2300 #### [facility] [address] [place], [address] Mucus Ql (Urine sed) 0 SEEN Normal [facility] Comment on above: Order Comment: CLEAN CATCH Performed By: #### L 503.7505, L501.5200, L501.2300 #### [facility] [address] [place], [address] Urine clarityOrdered By: Jovan Perez on 02-26-2025 Clarity (U) Clear Clear [facility] Urine color determinationOrd ered By: Austin Perez on 02-26-2025 Color (U) Yellow Yellow [facility] Urine cultureOrdered By: Jovan Perez on 02-26-2025 Bacteria identified Cx Nom (U) Positive Abnormal [facility] Urine glucose detectionOrder ed By: Austin Perez on 02-26-2025 Glucose Ql (U) Normal mg/dl Normal [facility] Urine leukocyte esterase det ection by dipstickOrdered By: Austin Perez on 02-26-2025 Leukocyte esterase Test strip Ql (U) Negative Negative [facility] Urine pHOrdered By: Austin fitzgerald on 02-26-2025 pH (U) 6.0 [pH] 5.0 - 8.0 [facility] Urine sediment bacteria coun t by microscopy (number/high power field)Ordered By: Austin Perez on 02-26-2025 Bacteria LM.HPF (Urine sed) [#/Area] 3 /[HPF] None Seen [facility] Urine sediment fine granular cast count by microscopy (number/low power field)Ordered By: Austin Perez on 02-26-2025 Fine Granular Casts LM.LPF (Urine sed) [#/Area] 10-25 SEEN /lpf 0-5 [facility] Urine sediment renal epithel ial cell count by microscopy (number/high power field)Ordered By: Austin Perez on 02-26-2025 Epithelial cells.renal LM.HPF (Urine sed) [#/Area] 0 /[HPF] 0-5 [facility] Urine specific gravity measu rementOrdered By: Austin Perez on 02-26-2025 Specific gravity (U) [Rel density] 1.020 1.002-1.030 [facility] Urine urobilinogen measureme ntOrdered By: Austin Perez on 02-26-2025 Urobilinogen Ql (U) Normal mg/dl Normal [facility] Venous Blood Gason Blood Gas Type SERGIO Normal [facility] Comment on above: Performed By: #### L 9000.0810 ####[facility] [address] [place], [address] CO2 [Moles/Vol] 25 mmol/L Normal 23-33 [facility] Comment on above: Performed By: #### L 9000.0810 ####[facility] [address] [place], [address] FI02 4.0 Normal [facility] Comment on above: Performed By: #### L 9000.0810 ####[facility] [address] [place], [address] HCO3 (Bld) [Moles/Vol] 24 mmol/L Normal 22-26 [facility] Comment on above: Performed By: #### L 9000.0810 ####[facility] [address] [place], [address] O2 Delivery Dev Not entered [facility] Comment on above: Performed By: #### L 9000.0810 ####[facility] [address] [place], [address] SITE Not entered [facility] Comment on above: Performed By: #### L 9000.0810 ####[facility] [address] [place], [address] VBG BE 0 mmol/L Normal -1.0-3.5 [facility] Comment on above: Performed By: #### L 9000.0810 ####[facility] [address] [place], [address] VBG pCO2 32.9 mmHg Low 41-51 [facility] Comment on above: Performed By: #### L 9000.0810 ####[facility] [address] [place], [address] VBG pH 7.47 High 7.32-7.42 [facility] Comment on above: Performed By: #### L 9000.0810 ####[facility] [address] [place], [address] VBG PO2 68 mmHg High 25-40 [facility] Comment on above: Performed By: #### L 9000.0810 ####[facility] [address] [place], [place], [address] VBG SO2 95 High 50-70 [facility] Comment on above: Performed By: #### L 9000.0810 ####[facility] [address] [place], [place], [address] Venous blood base excess josy surementOrdered By: Austin Perez on 02-26-2025 Base excess Calc (BldV) [Moles/Vol] 0 mmol/L -1.0-3.5 [facility] Venous blood bicarbonate josy surementOrdered By: Austin Perez on 02-26-2025 HCO3 (Bld) [Moles/Vol] 24 mmol/L 22-26 [facility] Venous blood oxygen saturati on measurementOrdered By: Austin Perez on 02-26-2025 Oxygen saturation in Blood 95 % High 50-70 [facility] Venous blood pH measurementO rdered By: Austin Preez on 02-26-2025 pH (BldV) 7.47 [pH] High 7.32-7.42 [facility] Venous blood partial pressur e of carbon dioxide measurementOrdered By: Austin Perez on 02-26-2025 CO2 (BldV) [Partial pressure] 32.9 mm[Hg] Low 41-51 [facility] Venous blood partial pressur e of oxygen measurementOrdered By: Austin Perez on 02-26-2025 Oxygen (BldV) [Partial pressure] 68 mm[Hg] High 25-40 [facility] White blood cell (WBC) count Ordered By: Austin Perez on 02-26-2025 WBC (Bld) [#/Vol] 17.4 10*3/uL High 4.4-11.0 [facility] White blood cell countOrdere d By: Austin Perez on 02-26-2025 White blood cell count 0-5 SEEN /hpf 0-5 [facility] Telephone Encounteron 2024 Edge [employer] Authentication Interface Message Text Lm on vcml to scheduled PFT Normal [facility] Edge Drummer Authentication Interface Message Text Please contact to reschedule PFT appt. Normal [facility] CBC WITH DIFFERENTIALon 12-18 Basophils (Bld) [#/Vol] 0.10 10*3/uL Normal 0.00-0.20 [facility] Comment on above: Performed By: #### H STRP #### [facility] [address] [place], [place], Basophils/100 WBC (Bld) 1.3 % Normal <=1.9 [facility] Comment on above: Performed By: #### H STRP #### [facility] [address] [place], [place], Eosinophils (Bld) [#/Vol] 0.07 10*3/uL Normal 0.00-0.70 [facility] Comment on above: Performed By: #### H STRP #### [facility] [address] [place], [place], Eosinophils/100 WBC (Bld) 1.0 % Normal 0.1-4.0 [facility] Comment on above: Performed By: #### H STRP #### [facility] [address] [place], [place], Erythrocyte distribution width (RBC) [Ratio] 13.9 % Normal 11.5-14.5 [facility] Comment on above: Performed By: #### H STRP #### [facility] [address] [place], [place], Hematocrit (Bld) [Volume fraction] 41.4 % Normal 41.0-53.0 [facility] Comment on above: Performed By: #### H STRP #### [facility] [address] [place], [place], Hemoglobin (Bld) [Mass/Vol] 14.5 g/dL Normal 13.9-16.3 [facility] Comment on above: Performed By: #### H STRP #### [facility] [address] [place], [place], Lymphocytes (Bld) [#/Vol] 2.04 10*3/uL Normal 1.00-4.80 [facility] Comment on above: Performed By: #### H STRP #### [facility] [address] [place], [place], Lymphocytes/100 WBC (Bld) 26.5 % Normal 24.0-44.0 [facility] Comment on above: Performed By: #### H STRP #### [facility] [address] [place], [place], MCH (RBC) [Entitic mass] 30.3 pg Normal 26.0-34.0 [facility] Comment on above: Performed By: #### H STRP #### [facility] [address] [place], [place], MCHC (RBC) [Mass/Vol] 35.1 g/dL Normal 32.0-35.9 [facility] Comment on above: Performed By: #### H STRP #### [facility] [address] [place], [place], MCV (RBC) [Entitic vol] 87 fL Normal 80-100 T [facility] Comment on above: Performed By: #### H STRP #### [facility] [address] [place], [place], Monocytes (Bld) [#/Vol] 0.73 10*3/uL Normal 0.20-1.00 [facility] Comment on above: Performed By: #### H STRP #### [facility] [address] [place], [place], Monocytes/100 WBC (Bld) 9.5 % Normal 2.0-11.0 T [facility] Comment on above: Performed By: #### H STRP #### [facility] [address] [place], [place], Neutrophils (Bld) [#/Vol] 4.73 10*3/uL Normal 1.50-8.00 [facility] Comment on above: Performed By: #### H STRP #### [facility] [address] [place], [place], Neutrophils/100 WBC (Bld) 61.7 % Normal 31.0-76.0 [facility] Comment on above: Performed By: #### H STRP #### [facility] [address] [place] [address], Platelet mean volume (Bld) [Entitic vol] 7.0 fL Low 7.5-11.2 [facility] Comment on above: Performed By: #### H STRP #### [facility] [address] [place] [address], Platelets (Bld) [#/Vol] 323 10*3/uL Normal 150-400 [facility] Comment on above: Performed By: #### H STRP #### [facility] [address] [place] [address], RBC (Bld) [#/Vol] 4.79 10*6/uL Normal 4.50-5.90 [facility] Comment on above: Performed By: #### H STRP #### [facility] [address] [place] [address], WBC (Bld) [#/Vol] 7.7 10*3/uL Normal 4.5-11.5 [facility] Comment on above: Performed By: #### H STRP #### [facility] [address] [place] [address], IMMUNOGLOBULIN Janusz IGE 156.3 IU/mL Normal <158.0 [facility] Comment on above: Performed By: #### I GE #### [facility] [address] [place] [address], INHALANT ALLERGEN PANELon A. alternata IgE Qn (S) 0.25 kU/L [facility] A. alternata IgE RAST class (S) 0 Class [facility] A. fumigatus IgE Qn (S) kU/L kU/L [facility] A. fumigatus IgE RAST class (S) 0 Class [facility] Martiniquais house dust mite IgE Qn (S) kU/L kU/L [facility] Martiniquais house dust mite IgE RAST class (S) 0 Class [facility] Boxelder IgE Qn (S) kU/L kU/L [facility] Boxelder IgE RAST class (S) 0 Class [facility] Cat dander IgE Qn (S) kU/L kU/L [facility] Cat dander IgE RAST class (S) 0 Class [facility] Cockroach IgE Qn (S) 0.14 kU/L [facility] Cockroach IgE RAST class (S) 0 Class [facility] Common Ragweed 0 Class [facility] Common Ragweed IgE Qn (S) kU/L kU/L [facility] Common Ragweed IgE RAST class (S) kU/L kU/L [facility] Dog dander IgE Qn (S) kU/L kU/L [facility] Dog dander IgE RAST class (S) 0 Class [facility] Setomelanomma rostrata IgE Qn (S) kU/L kU/L [facility] Setomelanomma rostrata IgE RAST class (S) 0 Class [facility] Raul Grass 0 Class [facility] Raul IgE Qn (S) kU/L kU/L [facility] Fedscreek IgE RAST class (S) 0 Class [facility] IgE (kU/L) Interp.: <0.35 Class 0 Below Detect. 0.35 - 0.69 Class 1 Low 0.70 - 3.49 Class 2 Moderate 3.50 - 17.49 Class 3 High 17.50- 52.49 Class 4 Very High 52.50- 99.99 Class 5 Very High >=100 Class 6 Very High [facility] ALTERNARIA ALTERNATA 0.25 kU/L Normal [facility] Comment on above: Order Comment: [place] ignacio troponin can result from acute myocardial [...] #### H STRP #### [facility] [address] [place] [address], [address] ALTERNARIA ALTERNATA CLASS 0 Class Normal [facility] Comment on above: Order Comment: [place] ignacio troponin can result from acute myocardial [...] #### H STRP #### [facility] [address] [place] [address], [address] ASPERGILLUS FUMIGATUS < 0.10 Normal [email or web address] Comment on above: Order Comment: [place] ignacio troponin can result from acute myocardial [...] H STRP #### [facility] [address] [place], [address] ASPERGILLUS FUMIGATUS CLASS 0 Class Normal [facility] Comment on above: Order Comment: [place] ignacio troponin can result from acute myocardial [...] #### H STRP #### [facility] [address] [place] [address], [address] < 0.10 Normal [facility] Comment on above: Order Comment: [place] ignacio troponin can result from acute myocardial [...] H STRP #### [facility] [address] [place], [place], [address] CLASS 0 Class Normal [facility] Comment on above: Order Comment: [place] ignacio troponin can result from acute myocardial [...] #### H STRP #### [facility] [address] [place] [address], [address] CAT DANDER < 0.10 Normal [facility] Comment on above: Order Comment: [place] ignacio troponin can result from acute myocardial [...] #### H STRP #### [facility] [address] [place] [address], [address] CAT DANDER CLASS 0 Class Normal [facility] Comment on above: Order Comment: [place] ignacio troponin can result from acute myocardial [...] #### H STRP #### [facility] [address] [place] [address], [address] COCKROACH 0.14 kU/L Normal [facility] Comment on above: Order Comment: [place] ignacio troponin can result from acute myocardial [...] #### H STRP #### [facility] [address] [place] [address], [address] COCKROACH CLASS 0 Class Normal [facility] Comment on above: Order Comment: [place] ignacio troponin can result from acute myocardial [...] H STRP #### [facility] [address] [place], [address] COMMON RAGWEED < 0.10 Normal [facility] Comment on above: Order Comment: [place] ignacio troponin can result from acute myocardial [...] #### H STRP #### [facility] [address] [place] [address], [address] COMMON RAGWEED CLASS 0 Class Normal [facility] Comment on above: Order Comment: [place] ignacio troponin can result from acute myocardial [...] H STRP #### [facility] [address] [place], [place], D. FARINAE (DUST MITE) CLASS 0 Class Normal [facility] Comment on above: Order Comment: [place] ignacio troponin can result from acute myocardial [...] H STRP #### [facility] [address] [place], [place], D. FARINAE (HOUSE DUST MITE) < 0.10 Normal [email or web address] Comment on above: Order Comment: [place] ignacio troponin can result from acute myocardial [...] #### H STRP #### [facility] [address] [place] [address], [address] DOG DANDER < 0.10 Normal [facility] Comment on above: Order Comment: [place] ignacio troponin can result from acute myocardial [...] #### H STRP #### [facility] [address] [place] [address], [address] DOG DANDER CLASS 0 Class Normal [facility] Comment on above: Order Comment: [place] ignacio troponin can result from acute myocardial [...] H STRP #### [facility] [address] [place], [address] HELMINTHOSPORIUM HALODES < 0.10 Normal [email or web address] Comment on above: Order Comment: [place] ignacio troponin can result from acute myocardial [...] #### H STRP #### [facility] [address] [place] [address], [address] HELMINTHOSPORIUM HALODES CLASS 0 Class Normal [email or web address] Comment on above: Order Comment: [place] ignacio troponin can result from acute myocardial [...] H STRP #### [facility] [address] [place], [address] OAK < 0.10 Normal [facility] Comment on above: Order Comment: [place] ignacio troponin can result from acute myocardial [...] #### H STRP #### [facility] [address] [place] [address], OAK CLASS 0 Class Normal [facility] Comment on above: Order Comment: [place] ignacio troponin can result from acute myocardial [...] H STRP #### [facility] [address] [place], [place], RAUL GRASS < 0.10 Normal [facility] Comment on above: Order Comment: [place] ignacio troponin can result from acute myocardial [...] #### H STRP #### [facility] [address] [place] [address], [phone] ARUL JARRELL CLASS 0 Class Normal [facility] [employer] Comment on above: Order Comment: [place] ignacio troponin can result from acute myocardial [...] #### H STRP #### [facility] [address] [place] [address], [address] Laboratory - Hematology and Cell countson 01-08-2025 Basophils (Bld) [#/Vol] 0.1 10*3/uL 0.00 - 0.20 K/uL [facility] Basophils/100 WBC (Bld) 1.3 % NINF - 1.9 % [facility] Eosinophils (Bld) [#/Vol] 0.07 10*3/uL 0.00 - 0.70 K/uL [facility] Eosinophils/100 WBC (Bld) 1 % 0.1 - 4.0 % [facility] Erythrocyte distribution width (RBC) [Ratio] 13.9 % 11.5 - 14.5 % [facility] Hematocrit (Bld) [Volume fraction] 41.4 % 41.0 [...] 7 fL Low 7.5 - 11.2 fL [facility] Platelets (Bld) [#/Vol] 323 10*3/uL 150 - 400 K/uL [facility] RBC (Bld) [#/Vol] 4.79 10*6/uL [facility] WBC (Bld) [#/Vol] 7.7 10*3/uL 4.5 - 11.5 K/uL [facility] - Serology - non- microon 01-08-2025 Immune complex IgE Qn 156.3 [facility] No Panel Informationon 01-08 Interpretation and review of laboratory results Normal [facility] Interpretation and review of laboratory results Abnormal [facility] Progress Noteson 01-08-2025 Edge Drummer Authentication Interface Message Text Division of Pulmonary, [...] this hospital course he was seen [facility] pulmonary [facility] October and then by a 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 practice 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 in [place] (no OV notes available) Per patient and [...] -- -- 0.07 <0.03 Modified Medical Research [place] (mMRC) dyspnea scale Grade Description of breathlessness [...] + PRN 2L with exertion Occupation/Exposures: Occupation: [employer] Born/raised: [place] Pets: 1 dog Triggers: highlighted if positive [...] - Connective tissue disorders; SLE, Sjogren's, RA, Kremlin's - Iritable bowel disease - Malignancy or [...] (CVX=15) 05/26/2017 Influenza, injectable, quadrivalent, preservative free (AII=806) 06/04/2017, 04/24/2019 Influenza, injectable, trivalent, preservative free (VAL=838) 06/05/2015, 05/26/2017 Pneumococcal conjugate 13 valent (PCV13) (QTI=763) 06/08/2015, 05/26/2017 Pneumococcal polysaccharide 23 Valent (PPSV23) (CVX=33) 06/04/2017 Tdap (URB=587) 06/14/2023 Pended (more content not included)... Normal [email or web address] Edge Drummer Authentication Interface Message Text Patient was identified by name and date of . Barak Cerrato MA .Patient at risk for falls:No Falls Risk protocol implemented: N/A Normal [email or web address] Telephone Encounteron 2024 Edge Drummer Authentication Interface Message Text Neurology Clinical Senior Mechanical Project Manager Note Attempted to call patient. LVM to return call to this RN to schedule a neurology appt for JIN with Dr Flannery. Letter sent SUSY Flood, RN, CMSRN Clinical Senior Mechanical Project Manager, Neurology Normal [email or web address] Consultson 12-07-2024 Edge Drummer Authentication Interface Message Text NEUROLOGY INITIAL CONSULT NOTE Reason for Consult: L sided headache with blurring of vision Consulted by: Mcihael Avendano MD HPI: 64 yo M with [...] showing no acute abnormalities but with R COORDINATING PRODUCER irregularity that was recanalized since 2019 CTA [...] medial rectus muscle. Recanalization of the right COORDINATING PRODUCER with irregularity of the vessel. No significant stenosis, dissection, or aneurysm in the intracranial or extracranial circulation. 04/2019 CTA head and neck: IMPRESSION: 1. 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 No evidence of acute infarct or hemorrhage. 2. Mild atherosclerotic disease of the cervical and intracranial ICAs without significant stenosis or occlusion. 3. Multifocal tree-in-bud opacities within the lung apices, likely smoking-rel (more content not included)... Normal [email or web address] ED Provider Yoan 12-08-19 Edge Drummer Authentication Interface Message Text MH for BM [...] unspecified headache type [R51.9, G89.29] Normal [email or web address] Edge Drummer Authentication Interface Message Text --------- HISTORY OF [...] Notes: Reviewed and utilized the nursing notes. Rural Mail Contractor: not needed - patient preferred language is Malian. External Medical Records: The patient's available past medical records and past encounters were reviewed. Summary of pertinent elements include: 12/02/24: [facility] ED: Similar sx headache, left sided vision loss Color Adviser consult evaluation unremarkable. No concern for carotid artery disease or GCA Pt was recommended staying in the CDU for neuro consult Pt left AMA before placement in CDU CTA Head/Neck No acute intracranial abnormality Enlargement of the left medial rectus muscle. Recanalization of the right COORDINATING PRODUCER with irregularity of the vessel. No significant [...] and (more content not included)... Normal [email or web address] System BASIC METABOLIC PANELon 05- Anion gap [Moles/Vol] 11 mmol/L Normal 10-20 [facility] Comment on above: Performed By: #### H STRP #### [facility] [address] [place] [address], Calcium [Mass/Vol] 9.4 mg/dL Normal 8.6-10.3 [facility] Comment on above: Performed By: #### H STRP #### [facility] [address] [place] [address], Chloride [Moles/Vol] 99 mmol/L Normal 98-107 [facility] Comment on above: Performed By: #### H STRP #### [facility] [address] [place] [address], CO2 [Moles/Vol] 29 mmol/L Normal 21-31 [facility] Comment on above: Performed By: #### H STRP #### [facility] [address] [place] [address], Creatinine [Mass/Vol] 0.89 mg/dL Normal 0.70-1.30 [facility] Comment on above: Performed By: #### H STRP #### [facility] [address] [place] [address], ESTIMATED GFR (CKD-EPI) 95 mL/min/1.73sqm Normal >=60 [facility] Comment on above: Result Comment: 2020 [...] Inclusion of Race in Diagnosing Kidney Disease. Martiniquais Journal of Kidney Diseases 2021;79(2):268-88.e1. 2. N Engl J Med 2020 Vol. 385 Issue 19 Pages [id number] Performed By: #### H STRP #### [facility] [address] [place] [address], Glucose [Mass/Vol] 90 mg/dL Normal 74-109 [facility] Comment on above: Performed By: #### H STRP #### [facility] [address], [place], Potassium [Moles/Vol] 5.0 mmol/L Normal 3.5-5.0 [facility] Comment on above: Result Comment: Hemo lysis present Performed By: #### H STRP #### [facility] [address] [place] [address], Sodium [Moles/Vol] 134 mmol/L Low 136-145 [facility] Comment on above: Performed By: #### H STRP #### [facility] [address], [place], Urea nitrogen [Mass/Vol] 11 mg/dL Normal 7-25 [facility] Comment on above: Performed By: #### H STRP #### [facility] [address], [place], Basic metabolic 2000 panelon 12-02-2024 Anion gap [Moles/Vol] 11 mmol/L 10 - 20 [facility] Calcium [Mass/Vol] 9.4 mg/dL 8.6 - 10. 3 mg/dL [facility] Chloride [Moles/Vol] 99 mmol/L 98 - 10 7 mmol/L [facility] CO2 [Moles/Vol] 29 mmol/L 21 - 31 mmol/L [facility] Creatinine [Mass/Vol] 0.89 mg/dL 0.70 - 1.30 mg/dL [facility] GFR/1.73 sq M.predicted CKD-EPI (S/P/Bld) [Vol rate/Area] 95 - PINF [facility] Comment on above: 2021 CKD EPI Equatio n using Creatinine without [...] Inclusion of Race in Diagnosing Kidney Disease. Martiniquais Journal of Kidney Diseases 2021;79(2):268-88.e1. 2. N Engl J Med 2020 Vol. 385 Issue 19 Pages 3750-1403 Glucose [Mass/Vol] 90 mg/dL 74 - 109 mg/dL [facility] Interpretation and review of laboratory results Abnormal [facility] Potassium [Moles/Vol] 5 mmol/L 3.5 - 5.0 mmol/L [facility] Comment on above: Hemolysis present Sodium [Moles/Vol] 134 mmol/L Low 136 - 145 mmol/L [facility] Urea nitrogen [Mass/Vol] 11 mg/dL 7 - 25 mg/dL [facility] C-REACTIVE PROTEINon 12-02- 025 CRP [Mass/Vol] mg/dL NINF - 0.5 mg/dL [facility] Interpretation and review of laboratory results Normal [facility] CRP [Mass/Vol] mg/L Normal <0.5 [facility] Comment on above: Performed By: #### H STRP #### [facility] [address] [place] [address], [id number] CBC WITH DIFFERENTIALon 11-16 Basophils (Bld) [#/Vol] [...] (Bld) [#/Vol] 0.08 10*3/uL Normal 0.00-0.20 [facility] Comment on above: Performed By: #### I GE #### [facility] [address] [place], [address] Basophils/100 WBC (Bld) 1.0 % Normal <=1.9 T [facility] Comment on above: Performed By: #### I GE #### [facility] [address], [place], Eosinophils (Bld) [#/Vol] 0.13 10*3/uL Normal 0.00-0.70 [facility] Comment on above: Performed By: #### I GE #### [facility] [address], [place], Eosinophils/100 WBC (Bld) 1.6 % Normal 0.1-4.0 [facility] Comment on above: Performed By: #### I GE #### [facility] [address], [place], Erythrocyte distribution width (RBC) [Ratio] 15.8 % High 11.5-14.5 [facility] Comment on above: Performed By: #### I GE #### [facility] [address], [place], Hematocrit (Bld) [Volume fraction] 38.6 % Low 41.0-53.0 [facility] Comment on above: Performed By: #### I GE #### [facility] [address] [place], [place], Hemoglobin (Bld) [Mass/Vol] 13.7 g/dL Low 13.9-16.3 [facility] Comment on above: Performed By: #### I GE #### [facility] [address], [place], Lymphocytes (Bld) [#/Vol] 2.20 10*3/uL Normal 1.00-4.80 The [facility] Comment on above: Performed By: #### I GE #### [facility] [address], [place], Lymphocytes/100 WBC (Bld) 27.4 % Normal 24.0-44.0 The [facility] Comment on above: Performed By: #### I GE #### [facility] [address], [place], MCH (RBC) [Entitic mass] 30.7 pg Normal 26.0-34.0 [facility] Comment on above: Performed By: #### I GE #### [facility] [address] [place] [address], MCHC (RBC) [Mass/Vol] 35.5 g/dL Normal 32.0-35.9 [facility] Comment on above: Performed By: #### I GE #### [facility] [address] [place] [address], MCV (RBC) [Entitic vol] 86 fL Normal 80-100 T [facility] Comment on above: Performed By: #### I GE #### [facility] [address] [place] [address], MONOCYTE DISTRIBUTION WIDTH 16 Normal <=20 [facility] Comment on above: Performed By: #### I GE #### [facility] [address] [place] [address], Monocytes (Bld) [#/Vol] 1.00 10*3/uL Normal 0.20-1.00 The [facility] Comment on above: Performed By: #### I GE #### [facility] [address] [place] [address], Monocytes/100 WBC (Bld) 12.4 % High 2.0-11.0 T [facility] Comment on above: Performed By: #### I GE #### [facility] [address] [place] [address], Neutrophils (Bld) [#/Vol] 4.64 10*3/uL Normal 1.50-8.00 The [facility] Comment on above: Performed By: #### I GE #### [facility] [address] [place] [address], Neutrophils/100 WBC (Bld) 57.7 % Normal 31.0-76.0 The [facility] Comment on above: Performed By: #### I GE #### [facility] [address] [place] [address], Platelet mean volume (Bld) [Entitic vol] 7.5 fL Normal 7.5-11.2 The [facility] Comment on above: Performed By: #### I GE #### [facility] [address] [place] [address], Platelets (Bld) [#/Vol] 259 10*3/uL Normal 150-400 The [facility] Comment on above: Performed By: #### I GE #### [facility] [address] [place], [place], RBC (Bld) [#/Vol] 4.47 10*6/uL Low 4.50-5.90 [facility] Comment on above: Performed By: #### I GE #### [facility] [address] [place], [place], WBC (Bld) [#/Vol] 8.0 10*3/uL Normal 4.5-11.5 [facility] Comment on above: Performed By: #### I GE #### [facility] [address] [place], [place], CTA HEAD/NECK W/on CTA HEAD/NECK W/ EXAMINATION: [...] Circulation: Recanalization of the previously occluded right COORDINATING PRODUCER with irregularity of the vessel. Intracranial vertebral arteries, PICA/AICA branches, basilar artery, SCAs and travel registered nurse nicu are patent. No vessel cutoff, aneurysm or focal hemodynamically significant stenosis. Other: No evidence of a soft tissue mass or lymphadenopathy in the neck or superior mediastinum. The lung apices are clear. IMPRESSION: No acute intracranial abnormality. Enlargement of the left medial rectus muscle. Recanalization of the right COORDINATING PRODUCER with irregularity of the vessel. No significant stenosis, dissection, or aneurysm in the intracranial or extracranial circulation. MACRO: None Normal [email or web address] CTA Head vessels and Neck ve ssels WO and W contrast IVOrdered By: Ming Torres on 12-02-2024 CT DLP 3838.3 (mGy.cm) [facility] Work Phone: CT Series Head,Head,Head,Head [facility] Work Phone: CTDI VOL 67.5 (mGy),9.6 (mGy),43.5 (mGy),59.2 (mGy) [facility] Work Phone: PHANTOM TYPE IEC Head Dosimetry Phantom,IEC Head Dosimetry Phantom,IEC Head Dosimetry Phantom,IEC Head Dosimetry Phantom [facility] Work Phone: [facility] Work Phone: CTA Head vessels and Neck [...] Circulation: Recanalization of the previously occluded right COORDINATING PRODUCER with irregularity of the vessel. Intracranial vertebral arteries, PICA/AICA branches, basilar artery, SCAs and travel registered nurse nicu are patent. No vessel cutoff, aneurysm or focal hemodynamically significant stenosis. Other: No evidence of a soft tissue mass or lymphadenopathy in the neck or superior mediastinum. The lung apices are clear. IMPRESSION: No acute intracranial abnormality. Enlargement of the left medial rectus muscle. Recanalization of the right COORDINATING PRODUCER with irregularity of the vessel. No significant [...] Circulation: Recanalization of the previously occluded right COORDINATING PRODUCER with irregularity of the vessel. Intracranial vertebral arteries, PICA/AICA branches, basilar artery, SCAs and travel registered nurse nicu are patent. No vessel cutoff, aneurysm or focal hemodynamically significant stenosis. Other: No evidence of a soft tissue mass or lymphadenopathy in the neck or superior mediastinum. The lung apices are clear. IMPRESSION: No acute intracranial abnormality. Enlargement of the left medial rectus muscle. Recanalization of the right COORDINATING PRODUCER with irregularity of the vessel. No significant stenosis, dissection, or aneurysm in the intracranial or extracranial circulation. MACRO: None [facility] Radiology Study observation (narrative) [facility] Consultson 12-02-2024 [employer] Authentication Interface Message Text Attestation signed by [...] no cell, heme, or pigment DISC OD: Marquez, sharp, perfused, and c/d 0.3 OS: Marquez, sharp, perfused, and c/d 0.25 VESSELS OD: [...] -Routine f/u with optometry. 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 -Provided patient with return precautions should he have a recurrence of transient vision loss. Dhiraj Mustafa MD Ophthalmology Resident Plan discussed with senior resident on-call, Dr. Saldivar Please page [phone] with any questions or concerns. Commonly used [...] angle/disc/elsewh (more content not included)... Normal [email or web address] ED Provider Noteson 12-03-19 [employer] Authentication Interface Message Text ED RESIDENT CONTINUATION [...] physica (more content not included)... Normal [email or web address] [employer] Authentication Interface Message Text Attestation signed by Davie Carroll MD at 12/04/2024 7:17 PM ATTENDING NOTE I saw and evaluated the patient. I personally obtained the flowers and critical portions of the history and physical exam. I reviewed the resident's documentation and discussed the patient with the resident. I agree with the resident's medical decision making as documented in the resident's note. Davie Carroll MD EMERGENCY DEPARTMENT - VISIT NOTE --------- HISTORY OF PRESENT ILLNESS ----- Triage History: Chief Complaint Patient presents with Headache JIN x24 hrs w/ vision changes Physician History: HIPAA: Verbal permission granted from patient to discuss case, including protected health information, in front of family / friends in room at the time of the evaluation. Rural Mail Contractor: not needed - patient preferred language is Malian. The history is provided by the Patient. [...] 8.0 (more content not included)... Normal [facility] ERYTHROCYTE SEDIMENTATION RA Mylene 12-02-2024 ESR (Bld) [Velocity] 18 mm/h [facility] Interpretation and review of laboratory results [facility] ESR (Bld) [Velocity] 18 mm/h Normal <=20 [facility] Comment on above: Performed By: #### H STRP #### [facility] [address] [place] [address], [phone] GLUCOSE, FINGERSTICK-IN OFFI CEon 12-02-2024 Glucose [Mass/Vol] 104 mg/dL 74 - 109 mg/dL [facility] Interpretation and review of laboratory results Normal [facility] Glucose [Mass/Vol] 104 mg/dL Normal 74-109 [facility] Comment on above: Performed By: #### 8 [id number] #### NURSING GLUCOSE PROGRAM [address] [place], [address] HIGH SENSITIVITY TROPONIN Io n 12-02-2024 Troponin I.cardiac DL <= 0.01 ng/mL [Mass/Vol] 11 ng/L [facility] - 15 ng/L [facility] HS TROPONIN I 11 ng/L Normal <=15 The [facility] Comment on above: Order Comment: [place] ignacio troponin can result from acute myocardial [...] #### H STRP #### [facility] [address] [place] [address], [phone] Troponin I.cardiac DL <= 0.0 1 ng/mL [Mass/Vol]on 12-02-2024 Interpretation and review of laboratory results Normal [facility] Elevated troponin ca n result from acute [...] within the clinical context using provider judgement. [facility] XR CHEST PA+LAT 2 VIEWSon XR CHEST [...] agree with the resident's interpretation. Normal The [facility] XR Chest PA and Lateralon EXAMINATION: [...] images and agree with the resident's interpretation. [facility] Radiology Study observation (narrative) [facility] XR Chest PA and LateralOrder ed By: Michael Mcdonald on 12-02-2024 [facility] Work Phone: Telephone Encounteron 2024 Edge [employer] Authentication Interface Message Text COPD Care Coordination note: Subjective: I am doing ok Objective: Future Appointments (next 10) Provider Department Center 01/08/2025 10:20 AM (Arrive by 10:10 AM) Veronica Butt, PROCESS TRAINER-PROFESSOR OF MARKETING [facility] Pulmonary Main [place] 01/18/2025 9:40 AM Anna Sanders PA-C [facility] Called patient who reports: Patient reports [...] prescribed Attend all recommended appointments Brooke Wu Pin Inserter Regulator [phone] Option 3 Normal [email or web address] Progress Noteson 11-17-2024 Edge [employer] Authentication Interface Message Text History provided by: [...] cerebra (more content not included)... Normal The [facility] [employer] Authentication Interface Message Text Identification was verified by patient verbalizing his name and date of . Normal [email or web address] Telephone Encounteron 2024 Edge [employer] Authentication Interface Message Text Vijay, The patient has been referred to the pulmonary rehab program. The pulmonary referral that was placed does not have the measurements from the PFT included within it. On the referral it states Patient's Reference Values: No results found for: [id number]. In order to assess whether or not the patient qualifies, we will need these values filled in on the referral. Please consider ordering PFTs for the patient so that the updated values can be included in the referral. Based on the current referral, the patient will not be added to the workqueue at this time. Thank you. Normal [email or web address] BASIC METABOLIC PANELon - Anion gap [Moles/Vol] 13 mmol/L Normal 10-20 [email or web address] Comment on above: Performed By: #### H STRP #### [facility] [address] [place] [address], Calcium [Mass/Vol] 8.9 mg/dL Normal 8.6-10.3 [email or web address] Comment on above: Performed By: #### H STRP #### [facility] [address] [place] [address], Chloride [Moles/Vol] 101 mmol/L Normal 98-107 [email or web address] Comment on above: Performed By: #### H STRP #### [facility] [address] [place] [address], CO2 [Moles/Vol] 26 mmol/L Normal 21-31 [email or web address] Comment on above: Performed By: #### H STRP #### [facility] [address] [place] [address], Creatinine [Mass/Vol] 1.03 mg/dL Normal 0.70-1.30 [email or web address] Comment on above: Performed By: #### H STRP #### [facility] [address] [place] [address], ESTIMATED GFR (CKD-EPI) 81 mL/min/1.73sqm Normal >=60 [email or web address] Comment on above: Result Comment: 2020 [...] Inclusion of Race in Diagnosing Kidney Disease. [place] Journal of Kidney Diseases 2021;79(2):268-88.e1. 2. N Engl J Med 2020 Vol. 385 Issue 19 Pages [phone] Performed By: #### H STRP #### [facility] [address] [place] [address], Glucose [Mass/Vol] 104 mg/dL Normal 74-109 [facility] Comment on above: Performed By: #### H STRP #### [facility] [address] [place] [address], Potassium [Moles/Vol] 4.0 mmol/L Normal 3.5-5.0 [facility] Comment on above: Performed By: #### H STRP #### [facility] [address] [place] [address], Sodium [Moles/Vol] 136 mmol/L Normal 136-145 [facility] Comment on above: Performed By: #### H STRP #### [facility] [address] [place] [address], Urea nitrogen [Mass/Vol] 29 mg/dL High 7-25 [facility] Comment on above: Performed By: #### H STRP #### [facility] [address] [place] [address], Basic metabolic 2000 panelon 10-26-2024 Anion gap [...] Inclusion of Race in Diagnosing Kidney Disease. [place] Journal of Kidney Diseases 2021;79(2):268-88.e1. 2. N Engl J Med 2020 Vol. 385 Issue 19 Pages 7208-3530 Glucose [Mass/Vol] 104 mg/dL 74 - 109 mg/dL [facility] Interpretation and review of laboratory results Abnormal [facility] Potassium [Moles/Vol] 4 mmol/L 3.5 - 5.0 mmol/L [facility] Sodium [Moles/Vol] 136 mmol/L 136 - 145 mmol/L [facility] Urea nitrogen [Mass/Vol] 29 mg/dL High 7 - 25 mg/dL [facility] CBC WITH DIFFERENTIALon 10-17 Basophils (Bld) [#/Vol] 0.07 10*3/uL 0.00 - [...] (Bld) [#/Vol] 0.07 10*3/uL Normal 0.00-0.20 [facility] Comment on above: Performed By: #### H STRP #### [facility] [address] [place] [address], Basophils/100 WBC (Bld) 0.4 % Normal <=1.9 [facility] Comment on above: Performed By: #### H STRP #### [facility] [address] [place] [address], Eosinophils (Bld) [#/Vol] 0.01 10*3/uL Normal 0.00-0.70 [facility] Comment on above: Performed By: #### H STRP #### [facility] [address] [place] [address], Eosinophils/100 WBC (Bld) 0.0 % Low 0.1-4.0 [facility] Comment on above: Performed By: #### H STRP #### [facility] [address] [place] [address], Erythrocyte distribution width (RBC) [Ratio] 15.6 % High 11.5-14.5 [facility] Comment on above: Performed By: #### H STRP #### [facility] [address] [place] [address], Hematocrit (Bld) [Volume fraction] 37.4 % Low 41.0-53.0 [facility] Comment on above: Performed By: #### H STRP #### [facility] [address] [place] [address], Hemoglobin (Bld) [Mass/Vol] 12.4 g/dL Low 13.9-16.3 [facility] Comment on above: Performed By: #### H STRP #### [facility] [address] [place] [address], Lymphocytes (Bld) [#/Vol] 2.30 10*3/uL Normal 1.00-4.80 [facility] Comment on above: Performed By: #### H STRP #### [facility] [address] [place] [address], Lymphocytes/100 WBC (Bld) 12.9 % Low 24.0-44.0 [facility] Comment on above: Performed By: #### H STRP #### [facility] [address] [place] [address], MCH (RBC) [Entitic mass] 29.1 pg Normal 26.0-34.0 [facility] Comment on above: Performed By: #### H STRP #### [facility] [address] [place] [address], MCHC (RBC) [Mass/Vol] 33.2 g/dL Normal 32.0-35.9 [facility] Comment on above: Performed By: #### H STRP #### [facility] [address] [place] [address], MCV (RBC) [Entitic vol] 88 fL Normal 80-100 [facility] Comment on above: Performed By: #### H STRP #### [facility] [address] [place] [address], Monocytes (Bld) [#/Vol] 1.39 10*3/uL High 0.20-1.00 [facility] Comment on above: Performed By: #### H STRP #### [facility] [address] [place] [address], Monocytes/100 WBC (Bld) 7.8 % Normal 2.0-11.0 T [facility] Comment on above: Performed By: #### H STRP #### [facility] [address] [place] [address], Neutrophils (Bld) [#/Vol] 13.98 10*3/uL High 1.50-8.00 The [facility] Comment on above: Performed By: #### H STRP #### [facility] [address] [place] [address], Neutrophils/100 WBC (Bld) 78.8 % High 31.0-76.0 [facility] Comment on above: Performed By: #### H STRP #### [facility] [address] [place] [address], Platelet mean volume (Bld) [Entitic vol] 7.4 fL Low 7.5-11.2 [facility] Comment on above: Performed By: #### H STRP #### [facility] [address] [place] [address], Platelets (Bld) [#/Vol] 306 10*3/uL Normal 150-400 The [facility] Comment on above: Performed By: #### H STRP #### S [facility] [address] [place] [address], RBC (Bld) [#/Vol] 4.27 10*6/uL Low 4.50-5.90 [facility] Comment on above: Performed By: #### H STRP #### S [facility] [address] [place] [address], WBC (Bld) [#/Vol] 17.7 10*3/uL High 4.5-11.5 [email or web address] Comment on above: Performed By: #### H STRP #### [facility] [address] [place] [address], Care Plan Noteon 10-26-2024 Edge [employer] Authentication Interface Message Text EXERCISE OXIMETRY: = [...] was 94%. Aura Wagner MD Normal [email or web address] MAGNESIUMon 10-26-2024 Interpretation and review of laboratory results Normal [facility] Magnesium [Mass/Vol] 2.3 mg/dL 1.9 - 2 .7 mg/dL [facility] Magnesium [Mass/Vol] 2.3 mg/dL Normal 1.9-2.7 [email or web address] Comment on above: Performed By: #### H STRP #### [facility] [address] [place] [address], No Panel Informationon 10-26 [facility] Progress Noteson 10-26-2024 Edge [employer]mer Authentication Interface Message Text A walking pulse [...] bedside for transport at discharge, please call [employer] at [phone] (Available 08/02). Pt has been cleared to dc home with recs for OP Pulm Rehab. SW will follow for appropriate dc planning. Rena Thorne, [facility] Inpatient Tunnel Mucker Normal The [email or web address] [facility] Edge Drummer Authentication Interface Message Text Stepdown Unit ATTENDING NOTE AURA WAGNER MD - PIN [phone] I saw and evaluated the patient. I [...] MD Pulmonary, Critical Care and Sleep Medicine [facility] Normal [facility] Edge Drummer Authentication Interface Message Text [facility] Step Down Unit - H AND P Elis Bills Age [age] year old male ROOM: [place] [address] Admitted 10/24/2024 7:57 PM Hospital Day: 2 HPI Elis Bills is a 64 year old male admitted on 10/24 with a PMH of severe persistent asthma (FEV1 64% FEV1/FVC 70%) , tobacco abuse, alcohol abuse (30 beers/week) TIA (P2 occlusion 2018, on plavix), GERD, HLD, lumbar laminectomy (07/2024) presenting with shortness of breath. Started in [place] on Wednesday, took temp and was 102. [...] 3.92 FEF50/FIF50 0.41 90-100 FIVC (L) 2.62 SJR64-76 (L/sec) 0.90 1.20 2.56 4.44 35 Time [...] trapping, normal TLC. Normal FEV1/FVC but low [id number]. Chest CT with multiple sub<6mm lung nodules. No mediastinal LAD. Airway wall thickening. - home: albuterol, breztri, pulmicort, singulair Dx: asthma vs COPD vs ADHF - prior echo from 201 (more content not included)... Normal [facility] [email or web address] [facility] BASIC METABOLIC PANELon 04-0 Anion gap [Moles/Vol] 15 mmol/L Normal 10-20 The [facility] Comment on above: Performed By: #### C H8, MG #### [facility] [address] [place] [address], Calcium [Mass/Vol] 9.0 mg/dL Normal 8.6-10.3 The [facility] Comment on above: Performed By: #### C H8, MG #### [facility] [address] [place] [address], Chloride [Moles/Vol] 98 mmol/L Normal 98-107 The [facility] Comment on above: Performed By: #### C H8, MG #### [facility] [address] [place], [place], CO2 [Moles/Vol] 27 mmol/L Normal 21-31 The [email or web address] [facility] Comment on above: Performed By: #### C H8, MG #### [facility] [address] [place], [place], Creatinine [Mass/Vol] 0.90 mg/dL Normal 0.70-1.30 The [facility] Comment on above: Performed By: #### C H8, MG #### [facility] [address] [place], [place], ESTIMATED GFR (CKD-EPI) 95 mL/min/1.73sqm Normal >=60 The [facility] Comment on above: Result Comment: 2020 [...] Inclusion of Race in Diagnosing Kidney Disease. Martiniquais Journal of Kidney Diseases 202;79(2):268-88.e1. 2. N Engl J Med 2020 Vol. 385 Issue 19 Pages 1701-1317 Performed By: #### C H8, MG #### [facility] [address] [place] [address], Glucose [Mass/Vol] 130 mg/dL High 74-109 [facility] Comment on above: Performed By: #### C H8, MG #### [facility] [address] [place], [place], Potassium [Moles/Vol] 4.0 mmol/L Normal 3.5-5.0 [facility] Comment on above: Performed By: #### C H8, MG #### [facility] [address] [place] [address], Sodium [Moles/Vol] 136 mmol/L Normal 136-145 [facility] Comment on above: Performed By: #### C H8, MG #### [facility] [address] [place], [place], Urea nitrogen [Mass/Vol] 14 mg/dL Normal 7-25 [facility] Comment on above: Performed By: #### C H8, MG #### [facility] [address] [place] [address], Basic metabolic 2000 panelon 10-25-2024 Anion gap [Moles/Vol] 15 mmol/L 10 - 20 [facility] Calcium [Mass/Vol] 9 mg/dL 8.6 - 10. 3 mg/dL [facility] Chloride [Moles/Vol] 98 mmol/L 98 - 10 7 mmol/L [facility] CO2 [Moles/Vol] 27 mmol/L 21 - 31 mmol/L [facility] Creatinine [Mass/Vol] 0.9 mg/dL 0.70 - 1.30 mg/dL [facility] GFR/1.73 sq M.predicted CKD-EPI (S/P/Bld) [Vol rate/Area] 95 - PINF [facility] Comment on above: 2020 CKD EPI Equatio [...] Inclusion of Race in Diagnosing Kidney Disease. Martiniquais Journal of Kidney Diseases 2021;79(2):268-88.e1. 2. N Engl J Med 2020 Vol. 385 Issue 19 Pages 5083-7229 Glucose [Mass/Vol] 130 mg/dL High 74 - [...] (Bld) [#/Vol] 0.18 10*3/uL Normal 0.00-0.20 [facility] Comment on above: Performed By: #### C BCDSAT ####S PATHOLOGY [id number] [place], [place], Basophils/100 WBC (Bld) 1.1 % Normal <=1.9 T [facility] Comment on above: Performed By: #### C BCDSAT ####[facility] [id number] [place], [place], Eosinophils (Bld) [#/Vol] 0.00 10*3/uL Normal 0.00-0.70 [facility] Comment on above: Performed By: #### C BCDSAT ####S PATHOLOGY [id number] [place], Eosinophils/100 WBC (Bld) 0.0 % Low 0.1-4.0 [facility] Comment on above: Performed By: #### C BCDSAT ####S PATHOLOGY [id number] [place], [place], Erythrocyte distribution width (RBC) [Ratio] 15.9 % High 11.5-14.5 [facility] Comment on above: Performed By: #### C BCDSAT ####[facility] PATHOLOGY [id number] [place], [place], Hematocrit (Bld) [Volume fraction] 35.9 % Low 41.0-53.0 [facility] Comment on above: Performed By: #### C BCDSAT ####[facility] PATHOLOGY [id number] [place], Hemoglobin (Bld) [Mass/Vol] 12.2 g/dL Low 13.9-16.3 [facility] Comment on above: Performed By: #### C BCDSAT ####[facility] PATHOLOGY [id number] [place] [address], Lymphocytes (Bld) [#/Vol] 0.80 10*3/uL Low 1.00-4.80 [facility] Comment on above: Performed By: #### C BCDSAT ####[facility] PATHOLOGY [id number] [place] [address], Lymphocytes/100 WBC (Bld) 5.0 % Low 24.0-44.0 [facility] Comment on above: Performed By: #### C BCDSAT ####S PATHOLOGY [id number] [place], [place], MCH (RBC) [Entitic mass] 29.7 pg Normal 26.0-34.0 The [facility] Comment on above: Performed By: #### C BCDSAT ####S PATHOLOGY [id number] [place], MCHC (RBC) [Mass/Vol] 34.0 g/dL Normal 32.0-35.9 The [facility] Comment on above: Performed By: #### C BCDSAT ####S PATHOLOGY [id number] [place] [address], MCV (RBC) [Entitic vol] 88 fL Normal 80-100 [facility] Comment on above: Performed By: #### C BCDSAT ####[facility] PATHOLOGY [id number] [place], Monocytes (Bld) [#/Vol] 0.75 10*3/uL Normal 0.20-1.00 [facility] Comment on above: Performed By: #### C BCDSAT ####[facility] PATHOLOGY [id number] [place], Monocytes/100 WBC (Bld) 4.7 % Normal 2.0-11.0 [facility] Comment on above: Performed By: #### C BCDSAT ####[facility] PATHOLOGY [id number] [place], [place], Neutrophils (Bld) [#/Vol] 14.28 10*3/uL High 1.50-8.00 [facility] Comment on above: Performed By: #### C BCDSAT ####[facility] PATHOLOGY [id number] [place] [address], Neutrophils/100 WBC (Bld) 89.2 % High 31.0-76.0 [facility] Comment on above: Performed By: #### C BCDSAT ####[facility] PATHOLOGY [id number] [place], Platelet mean volume (Bld) [Entitic vol] 7.5 fL Normal 7.5-11.2 [facility] Comment on above: Performed By: #### C BCDSAT ####[facility] PATHOLOGY [id number] [place], Platelets (Bld) [#/Vol] 277 10*3/uL Normal 150-400 [facility] Comment on above: Performed By: #### C BCDSAT ####[facility] PATHOLOGY [id number] [place], RBC (Bld) [#/Vol] 4.10 10*6/uL Low 4.50-5.90 [facility] Comment on above: Performed By: #### C BCDSAT ####[facility] [id number] [place], WBC (Bld) [#/Vol] 16.0 10*3/uL High 4.5-11.5 The [facility] Comment on above: Performed By: #### C BCDSAT ####[facility] [id number] [place], [place], Consultson 10-25-2024 Edge Drummer Authentication Interface Message Text SW is aware of consult for substance use resources. Pt declines substance use issues and states he does not need resources. Rena Thorne, EDITHA, [employer]ORTS OFFICIAL Inpatient Tunnel Mucker Normal [facility] Diabetes tracking panelOrder ed By: Deni Clark on 10-25-2024 Average glucose Estimated from glycated hemoglobin (Bld) [Mass/Vol] 117 mg/dL [facility] HbA1c (Bld) [Mass fraction] 5.7 % High 4.0 - 5.6 % [facility] Interpretation and review of laboratory results Abnormal [facility] [place]pe 10-25-2024 Edge Drummer Authentication Interface Message Text Stepdown Unit ATTENDING NOTE AURA WAGNER MD - PIN [phone] I saw and evaluated the patient. I [...] MD Pulmonary, Critical Care and Sleep Medicine [facility] Normal [facility] Edge Drummer Authentication Interface Message Text [facility] Step Down Unit - H AND P Elis Bills Age [age] year old male ROOM: [place] [address]/ Admitted 10/24/2024 7:57 PM Hospital Day: 2 [...] breath. He started to feel SOB in baptism on Wednesday. Went home and used pulse [...] 8.2 (more content not included)... Normal [facility] [email or web address] [facility] MAGNESIUMon 10-25-2024 Interpretation and review of laboratory results Normal [facility] Magnesium [Mass/Vol] 2.2 mg/dL 1.9 - 2 .7 mg/dL [facility] Magnesium [Mass/Vol] 2.2 mg/dL Normal 1.9-2.7 The [email or web address] [facility] Comment on above: Performed By: #### C H8, MG #### [facility] [address] [place] [address], [phone] No Panel Informationon 10-25 [facility] Procedureson 10-25-2024 Edge Drummer Authentication Interface Message Text Transthoracic Echocardiographic Report Name: SANJU GILLIS Physician: : [id number] Referring ROXIE MONTGOMERY MD Physician: Age: 64 Estimator: Keyona Avendano RDCS Exam Date: 10/25/2024 Fellow: [...] Doctor's order(s) verified. Patient's preferred language is Malian . Verbal consent for left heart echo contrast was obtained after explanation of the risks (/10,000 significant and 13,000 minor allergic reactions) and benefits (needed enhancement of imaging) were explained. Administration of 1 dose(s) of 1.5 ml of Definity diluted to 8.5 ml of saline was administered by Keyona Avendano BARBARA . Supine BP: 134/118 mmHg Patient Status: [...] 10/25/2024 11:29 AM Invalid Interpretation Code [facility] [email or web address] [facility] RESPIRATORY CULTURE, MISCon 10-25-2024 RESPIRATORY CULTURE, MISC MRSA: Methicillin-Resistant Staphylococcus aureus NOT detected by chromagar screen. C RESP: Isolates consistent with microorganisms encountered in the upper respiratory tract GRAM STAIN: 4+ Polymorphonuclear Leukocytes 2+ Squamous Epithelial Cells 2+ Gram Positive Cocci In Pairs Normal [facility] [email or web address] [facility] Comment on above: Performed By: #### C RESP ####[email or web address] U[address]wle[address] [place], [place] [facility] 10-24-2024 [facility] HNO ID: [id number] Author: ROSE VICTORIA RT(R) Service: Radiology Author Type: Bench Assembler Operator Type: [facility] Filed: 10/24/2024 11:35 Note Text: Radiology [...] PATIENT PRESENTS WITH AN IMPLANTABLE OR ATTACHED RDA: No ALLERGIES: Reviewed and unchanged CONTRAST ALLERGY: [...] October 24, 2024 TIME: 11:35 AM Normal [facility] HNO ID: [id number] Author: DEVANG WATTS RT(Yareli) Service: ? Author Type: Technologist Type: Allied [...] PATIENT PRESENTS WITH AN IMPLANTABLE OR ATTACHED RDA: No RADIOLOGY DEPARTMENT: General X-ray: Exam(s) Completed: Chest X-Ray PERIPHERAL IV DATA: Not applicable SIGNED BY: RT Lance(Yareli) October 24, 2024 10:21 AM [facility] BASIC METABOLIC PANELon Anion gap [Moles/Vol] 16 mmol/L Normal 10-20 [facility] Comment on above: Performed By: #### C H8, HEPATIC, MG ####[facility] [id number] [place], [place], Calcium [Mass/Vol] 9.2 mg/dL Normal 8.6-10.3 [facility] Comment on above: Performed By: #### C H8, HEPATIC, MG ####[facility] [id number] [place], Chloride [Moles/Vol] 98 mmol/L Normal 98-107 [facility] Comment on above: Performed By: #### C H8, HEPATIC, MG ####[facility] [id number] [place], CO2 [Moles/Vol] 25 mmol/L Normal 21-31 [facility] Comment on above: Performed By: #### C H8, HEPATIC, MG ####[facility] [id number] [place], Creatinine [Mass/Vol] 0.87 mg/dL Normal 0.70-1.30 [facility] Comment on above: Performed By: #### C H8, HEPATIC, MG ####[facility] [id number] [place], ESTIMATED GFR (CKD-EPI) 96 mL/min/1.73sqm Normal >=60 [facility] Comment on above: Result Comment: 2020 [...] Inclusion of Race in Diagnosing Kidney Disease. Martiniquais Journal of Kidney Diseases 2021;79(2):268-88.e1. 2. N Engl J Med 1 Vol. 385 Issue 19 Pages 9202-3576 Performed By: #### C H8, HEPATIC, MG ####[facility] [id number] [place], Glucose [Mass/Vol] 140 mg/dL High 74-109 [facility] Comment on above: Performed By: #### Cosmo Dunbar8, HEPATIC, MG ####[facility] [id number] [place], Potassium [Moles/Vol] 4.5 mmol/L Normal 3.5-5.0 [facility] Comment on above: Performed By: #### Cosmo Roa, HEPATIC, MG ####[facility] [id number] [place], Sodium [Moles/Vol] 134 mmol/L Low 136-145 [facility] Comment on above: Performed By: #### Cosmo Roa, HEPATIC, MG ####S PATHOLOGY [id number] [place], [place], Urea nitrogen [Mass/Vol] 13 mg/dL Normal 7-25 [facility] Comment on above: Performed By: #### Cosmo Roa, HEPATIC, MG ####[facility] [id number] [place], [place], BLOOD GAS, ARTERIALOrdered B y: Shaneka Finn on 10-24-2024 Base excess Calc (Bld) [...] Comment on above: Performed By: #### Cosmo R BGA #### [facility] [address] [place], [place], CR PCO2 41.3 mm Hg Normal 35.0-45.0 [facility] Comment on above: Performed By: #### C R BGA #### [facility] [address] [place] [address], CR PHA 7.393 Normal 7.350-7.450 [facility] Comment on above: Performed By: #### C R BGA #### [facility] [address] [place] [address], CR PO2 107 mm Hg High 80-100 [facility] Comment on above: Performed By: #### C R BGA #### [facility] [address] [place] [address], FIO2 (CATEGORY) 4 LPM Normal [facility] Comment on above: Performed By: #### C R BGA #### [facility] [address] [place] [address], HCO3 (Bld) [Moles/Vol] 25 mmol/L Normal 21-28 e [facility] Comment on above: Performed By: #### C R BGA #### [facility] [address] [place] [address], MODE Nasal Canula Normal [facility] Comment on above: Performed By: #### C R BGA #### [facility] [address] [place] [address], Oxygen saturation in Blood 98.0 % Normal 95.0-99.0 The [facility] Comment on above: Performed By: #### C R BGA #### [facility] [address] [place] [address], Bacteria Bld Culton 10-25-19 25 Bacteria identified Cx Nom (Bld) CULTURE, BLOOD: No growth 5 days Normal [facility] Comment on above: Performed By: #### 6 00-7 #### [facility] CLIA [id number] [address] STATES OF [facility] Bacteria Spec Resp Culton Bacteria identified Respiratory culture Nom (Unsp spec) CULTURE, RESPIRATORY: Few Normal respiratory mark present GRAM STAIN: Few Mixed oral mark Moderate Polymorphonuclear leukocytes Rare Epithelial cells Abnormal [facility] Comment on above: Performed By: #### 3 2355-0 #### [facility] CLIA [id number] [address] [place] [id number] [place] Basic metabolic 2000 [...] full clinical presentation. Reference: 1. Arsh C, Bamatilda M, Reynaldo DC, et al.. A Unifying Approach for GFR Estimation: Recommendations of the NKF-ASN Task Force on Reassessing the Inclusion of Race in Diagnosing Kidney Disease. Martiniquais Journal of Kidney Diseases 202;79(2):268-88.e1. 2. N Engl J Med 1 Vol. 385 Issue 19 Pages 3554-6347 Glucose [Mass/Vol] 140 mg/dL High 74 - 109 mg/dL [facility] Interpretation and review of laboratory results Abnormal [facility] Potassium [Moles/Vol] 4.5 mmol/L 3.5 - 5.0 mmol/L [facility] Sodium [Moles/Vol] 134 mmol/L Low 136 - 145 mmol/L [facility] Urea nitrogen [Mass/Vol] 13 mg/dL 7 - 25 mg/dL [facility] CBC W Auto Differential pane l (Bld)on 10-24-2024 Basophils (Bld) [#/Vol] 10*3/uL Normal <0.11 [facility] Comment on above: Order Comment: Speci men Type: BLOOD SPECIMENOrdering Facility: [facility] Address: [address] [place] [address] Performed By: #### 3 2355-0 #### [facility] CLIA [id number] [address] Basophils/100 WBC (Bld) 0.1 % Normal [facility] Comment on above: Order Comment: Speci men Type: BLOOD SPECIMENOrdering Facility: [facility] Address: [address] [place] [address] Performed By: #### 3 2355-0 #### [facility] CLIA [id number] [address] Differential cell count method Nom (Bld) Auto Normal [facility] Comment on above: Order Comment: Speci men Type: BLOOD SPECIMENOrdering Facility: [facility] Address: [address] [place] [address] Performed By: #### 3 2355-0 #### [facility] CLIA [id number] [address] [place] Eosinophils (Bld) [#/Vol] 10*3/uL Normal <0.46 [facility] Comment on above: Order Comment: Speci men Type: BLOOD SPECIMENOrdering Facility: [facility] Address: [address] [place] [address] Performed By: #### 3 2355-0 #### [facility] CLIA [id number] [address] Eosinophils/100 WBC (Bld) 0.0 % Normal [facility] Comment on above: Order Comment: Speci men Type: BLOOD SPECIMENOrdering Facility: [facility] Address: [address] [place] [address] Performed By: #### 3 2355-0 #### [facility] CLIA [id number] [address] [place] Erythrocyte distribution width (RBC) [Ratio] 15.6 % High 11.5-15.0 [facility] Comment on above: Order Comment: Speci men Type: BLOOD SPECIMENOrdering Facility: [facility] Address: [address] [place] [address] Performed By: #### 3 2355-0 #### [facility] CLIA [id number] [address] [place] Hematocrit (Bld) [Volume fraction] 38.9 % Low 39.0-51.0 [facility] Comment on above: Order Comment: Speci men Type: BLOOD SPECIMENOrdering Facility: [facility] Address: [address] [place] [address] Performed By: #### 3 2355-0 #### [facility] CLIA [id number] [address] [place] Hemoglobin (Bld) [Mass/Vol] 12.9 g/dL Low 13.0-17.0 [facility] Comment on above: Order Comment: Speci men Type: BLOOD SPECIMENOrdering Facility: [facility] Address: [address] [place] [address] Performed By: #### 3 2355-0 #### [facility] CLIA [id number] [address] Immature granulocytes (Bld) [#/Vol] 0.03 10*3/uL Normal <0.10 [facility] Comment on above: Order Comment: Speci men Type: BLOOD SPECIMENOrdering Facility: [facility] Address: [address] [place] [address] Performed By: #### 3 2355-0 #### [facility] CLIA [id number] [address] [place] Immature granulocytes/100 WBC (Bld) 0.2 % Normal [facility] Comment on above: Order Comment: Speci men Type: BLOOD SPECIMENOrdering Facility: [facility] Address: [address] [place] [address] Performed By: #### 3 2355-0 #### [facility] CLIA [id number] [address] [place] [address] [place] Lymphocytes (Bld) [#/Vol] 1.08 10*3/uL Normal 1.00-4.00 [facility] Comment on above: Order Comment: Speci men Type: BLOOD SPECIMENOrdering Facility: [facility] Address: [address] [place] [address] Performed By: #### 3 2355-0 #### [facility] CLIA [id number] [address] Lymphocytes/100 WBC (Bld) 5.8 % Normal [facility] Comment on above: Order Comment: Speci men Type: BLOOD SPECIMENOrdering Facility: [facility] Address: [address] [place] [address] Performed By: #### 3 2355-0 #### [facility] CLIA [id number] [address] MCH (RBC) [Entitic mass] 29.1 pg Normal 26.0-34.0 [facility] Comment on above: Order Comment: Speci men Type: BLOOD SPECIMENOrdering Facility: [facility] Address: [address] [place] [address] Performed By: #### 3 2355-0 #### [facility] CLIA [id number] [address] MCHC (RBC) [Mass/Vol] 33.2 g/dL Normal 30.5-36.0 [facility] Comment on above: Order Comment: Speci men Type: BLOOD SPECIMENOrdering Facility: [facility] Address: [address] [place] [address] Performed By: #### 3 2355-0 #### [facility] CLIA [id number] [address] MCV (RBC) [Entitic vol] 87.8 fL Normal 80.0-100.0 [facility] Comment on above: Order Comment: Speci men Type: BLOOD SPECIMENOrdering Facility: [facility] Address: [address] [place] [address] Performed By: #### 3 2355-0 #### [facility] CLIA [id number] [address] [place] Monocytes (Bld) [#/Vol] 1.62 10*3/uL High <0.87 [facility] Comment on above: Order Comment: Speci men Type: BLOOD SPECIMENOrdering Facility: [facility] Address: [address] [place] [address] Performed By: #### 3 2355-0 #### [facility] CLIA [id number] [address] [place] Monocytes/100 WBC (Bld) 8.8 % Normal [facility] Comment on above: Order Comment: Speci men Type: BLOOD SPECIMENOrdering Facility: [facility] Address: [address] [place] [address] Performed By: #### 3 2355-0 #### [facility] CLIA [id number] [address] [place] Neutrophils (Bld) [#/Vol] 15.73 10*3/uL High 1.45-7.50 [facility] Comment on above: Order Comment: Speci men Type: BLOOD SPECIMENOrdering Facility: [facility] Address: [address] [place] [address] Performed By: #### 3 2355-0 #### [facility] CLIA [id number] [address] [place] Neutrophils/100 WBC (Bld) 85.1 % Normal [facility] Comment on above: Order Comment: Speci men Type: BLOOD SPECIMENOrdering Facility: [facility] Address: [address] [place] [address] Performed By: #### 3 2355-0 #### [facility] CLIA [id number] [address] [place] Nucleated RBC (Bld) [#/Vol] Normal [facility] Comment on above: Order Comment: Speci men Type: BLOOD SPECIMENOrdering Facility: [facility] Address: [address] [place], [place] [address] Performed By: #### 3 2355-0 #### [facility] CLIA [id number] [address] [place] Nucleated RBC/100 WBC (Bld) [Ratio] Normal [facility] Comment on above: Order Comment: Speci men Type: BLOOD SPECIMENOrdering Facility: [facility] Address: [address] [place] [address] Performed By: #### 3 2355-0 #### [facility] CLIA [id number] [address] [place] Platelet mean volume (Bld) [Entitic vol] 9.2 fL Normal 9.0-12.7 [facility] Comment on above: Order Comment: Speci men Type: BLOOD SPECIMENOrdering Facility: [facility] Address: [address] [place] [address] Performed By: #### 3 2355-0 #### [facility] CLIA [id number] [address] [place] Platelets (Bld) [#/Vol] 276 10*3/uL Normal 150-400 [facility] Comment on above: Order Comment: Speci men Type: BLOOD SPECIMENOrdering Facility: [facility] Address: [address] [place] [address] Performed By: #### 3 2355-0 #### [facility] CLIA [id number] [address] [place] RBC (Bld) [#/Vol] 4.43 10*6/uL Normal 4.20-6.00 [facility] Comment on above: Order Comment: Speci men Type: BLOOD SPECIMENOrdering Facility: [facility] Address: [address] [place] [address] Performed By: #### 3 2355-0 #### [facility] CLIA [id number] [address] [place] WBC (Bld) [#/Vol] 18.48 10*3/uL High 3.70-11.00 [facility] Comment on above: Order Comment: Speci men Type: BLOOD SPECIMENOrdering Facility: [facility] Address: [address] [place] [id number] Performed By: #### 3 2355-0 #### [facility] CLIA [id number] 1 [place] [address] [place] CBC WITH DIFFERENTIALon Basophils (Bld) [#/Vol] 0.05 [...] RBC (Bld) [#/Vol] 4.18 10*6/uL Low [facility] WBC (Bld) [#/Vol] 16.7 10*3/uL High 4.5 - 11.5 K/uL [facility] Basophils (Bld) [#/Vol] 0.05 10*3/uL Normal 0.00-0.20 [facility] Comment on above: Performed By: #### H STRP #### [facility] [address] [place] [address], Basophils/100 WBC (Bld) 0.3 % Normal <=1.9 T [facility] Comment on above: Performed By: #### H STRP #### S [facility] LABORATORY [address] [place] [address], Eosinophils (Bld) [#/Vol] 0.00 10*3/uL Normal 0.00-0.70 [facility] Comment on above: Performed By: #### H STRP #### [facility] [address] [place] [address], Eosinophils/100 WBC (Bld) 0.0 % Low 0.1-4.0 [facility] Comment on above: Performed By: #### H STRP #### S [facility] [address] [place] [address], Erythrocyte distribution width (RBC) [Ratio] 15.8 % High 11.5-14.5 [facility] Comment on above: Performed By: #### H STRP #### S [facility] [address] [place] [address], Hematocrit (Bld) [Volume fraction] 36.3 % Low 41.0-53.0 [facility] Comment on above: Performed By: #### H STRP #### [facility] [address] [place] [address], Hemoglobin (Bld) [Mass/Vol] 12.3 g/dL Low 13.9-16.3 [facility] Comment on above: Performed By: #### H STRP #### [facility] [address] [place] [address], Lymphocytes (Bld) [#/Vol] 0.57 10*3/uL Low 1.00-4.80 [facility] Comment on above: Performed By: #### H STRP #### [facility] [address] [place], [place], Lymphocytes/100 WBC (Bld) 3.4 % Low 24.0-44.0 [facility] Comment on above: Performed By: #### H STRP #### [facility] [address] [place] [address], MCH (RBC) [Entitic mass] 29.4 pg Normal 26.0-34.0 [facility] Comment on above: Performed By: #### H STRP #### [facility] [address] [place] [address], MCHC (RBC) [Mass/Vol] 33.8 g/dL Normal 32.0-35.9 [facility] Comment on above: Performed By: #### H STRP #### [facility] [address] [place] [address], MCV (RBC) [Entitic vol] 87 fL Normal 80-100 [facility] Comment on above: Performed By: #### H STRP #### [facility] [address] [place] [address], Monocytes (Bld) [#/Vol] 0.49 10*3/uL Normal 0.20-1.00 [facility] Comment on above: Performed By: #### H STRP #### [facility] [address] [place] [address], Monocytes/100 WBC (Bld) 2.9 % Normal 2.0-11.0 [facility] Comment on above: Performed By: #### H STRP #### S [facility] LABORATORY [address] [place], [place], Neutrophils (Bld) [#/Vol] 15.64 10*3/uL High 1.50-8.00 [facility] Comment on above: Performed By: #### H STRP #### S [facility] LAB[facility] [address] [place], [place], Neutrophils/100 WBC (Bld) 93.4 % High 31.0-76.0 [facility] Comment on above: Performed By: #### H STRP #### S [facility] [address] [place], [place], Platelet mean volume (Bld) [Entitic vol] 7.5 fL Normal 7.5-11.2 [facility] Comment on above: Performed By: #### H STRP #### [facility] [address] [place], [place], Platelets (Bld) [#/Vol] 266 10*3/uL Normal 150-400 [facility] Comment on above: Performed By: #### H STRP #### [facility] [address] [place], [place], RBC (Bld) [#/Vol] 4.18 10*6/uL Low 4.50-5.90 [facility] Comment on above: Performed By: #### H STRP #### [facility] [address] [place], [place], WBC (Bld) [#/Vol] 16.7 10*3/uL High 4.5-11.5 [facility] Comment on above: Performed By: #### H STRP #### [facility] [address] [place], [place], CTA CHEST (NON GATED) W IVCO N PEon 10-24-2024 CTA CHEST (NON GATED) W IVCON PE * * *Final Report* * * DATE OF EXAM: Oct 24 2024 11:36AM LDC 0564 - CTA CHEST (NON GATED) W [...] Mediastinal and bilateral hilar adenopathy, new finding Litigation Attorney: PSCB Transcribe Date/Time: Oct 24 2024 11:51A Dictated by : AFTAB MARTINEZ MD This examination was interpreted and the report reviewed and electronically signed by: AFTAB MARTINEZ MD on Oct 24 2024 11:56AM EST [id number] N Normal [facility] Comprehensive metabolic 2000 panelon 10-24-2024 Albumin [Mass/Vol] 4.1 g/dL Normal 3.9-4.9 [facility] Comment on above: Order Comment: Speci men Type: BLOOD SPECIMENOrdering Facility: [facility] Address: [address] [place] [address] Performed By: #### 2 4323-8, 64730-8, 73797-0 ####[facility] LABCLIA [id number] [place] [address] [place] ALP [Catalytic activity/Vol] 115 U/L High 38-113 [facility] Comment on above: Order Comment: Speci men Type: BLOOD SPECIMENOrdering Facility: [facility] Address: [address] [place] [address] Performed By: #### 2 4323-8, 67858-5, 11269-9 ####[facility] LAB[facility] [id number] [place] [address] [place] ALT With P-5'-P [Catalytic activity/Vol] 19 U/L Normal 10-54 [facility] Comment on above: Order Comment: Speci men Type: BLOOD SPECIMENOrdering Facility: [facility] Address: [address] [place] [address] Performed By: #### 2 4323-8, 98003-6, 44880-2 ####[facility] LABCLIA [id number] [place] [address] [place] Anion gap [Moles/Vol] 14 mmol/L Normal 8-15 [facility] Comment on above: Order Comment: Speci men Type: BLOOD SPECIMENOrdering Facility: [facility] Address: [address] [place] [address] Performed By: #### 2 4323-8, 22472-8, 04014-1 ####[facility] LABCLIA [id number] [place] [address] [place] AST With P-5'-P [Catalytic activity/Vol] 16 U/L Normal 14-40 [facility] Comment on above: Order Comment: Speci men Type: BLOOD SPECIMENOrdering Facility: [facility] Address: [address] [place] [address] Performed By: #### 2 4323-8, 65786-0, 27305-2 ####[facility] LABCLIA [id number] [place] [address] [place] Bilirubin [Mass/Vol] 0.8 mg/dL Normal 0.2-1.3 [facility] Comment on above: Order Comment: Speci men Type: BLOOD SPECIMENOrdering Facility: [facility] Address: [address] [place] [address] Performed By: #### 2 4323-8, , 51627-6 ####[facility] LABCLIA [id number] [place] [address] [place] Calcium [Mass/Vol] 9.5 mg/dL Normal 8.5-10.2 [facility] Comment on above: Order Comment: Speci men Type: BLOOD SPECIMENOrdering Facility: [facility] Address: [address] [place] [address] Performed By: #### 2 4323-8, 36524-7, 90767-2 ####[facility] LABCLIA [id number] [place] [address] [place] Chloride [Moles/Vol] 96 mmol/L Low 98-107 [facility] Comment on above: Order Comment: Speci men Type: BLOOD SPECIMENOrdering Facility: [facility] Address: [address] [place] [address] Performed By: #### 2 4323-8, 65060-7, 36831-3 ####[facility] LABCLIA [id number] [place] [address] [place] CO2 [Moles/Vol] 23 mmol/L Normal 22-30 [facility] Comment on above: Order Comment: Wilbert torres Type: BLOOD SPECIMENOrdering Facility: [facility] Address: [address] [place] [address] Performed By: #### 2 4323-8, 73975-7, 39024-1 ####[facility] LABCLIA [id number] [place] [address] [place] Creatinine [Mass/Vol] 0.89 mg/dL Normal 0.73-1.22 [facility] Comment on above: Order Comment: Wilbert torres Type: BLOOD SPECIMENOrdering Facility: [facility] Address: [address] [place] [address] Performed By: #### 2 4323-8, 38070-0, 81684-7 ####[facility] LABCLIA [id number] [place] [address] [place] Creatinine and Glomerular filtration rate.predicted panel (S/P/Bld) 95 mL/min/1.73m??? Normal >=60 [facility] Comment on above: Order Comment: Wilbert torres Type: BLOOD SPECIMENOrdering Facility: [facility] Address: [address] [place] [address] Result Comment: Lala mated Glomerular Filtration Rate [...] actual GFR. Performed By: #### 2 4323-8, 11636-7, 22768-8 ####[facility] LABCLIA [id number] [place] [address] [place] Glucose [Mass/Vol] 117 mg/dL High 74-99 [facility] Comment on above: Order Comment: Wilbert torres Type: BLOOD SPECIMENOrdering Facility: [facility] Address: [address] [place] [address] Result Comment: The [place] Diabetes Association (ADA) provides guidance for cutoff [...] Standards of Medical Care in Diabetes 2016, [place] Diabetes Association. Diabetes Care. 2016.39(Suppl 1). Performed By: #### 2 4323-8, 57022-1, 64573-9 ####[employer] [facility] LABCLIA [id number] [place] [address] [place] Potassium [Moles/Vol] 4.1 mmol/L Normal 3.7-5.1 [facility] Comment on above: Order Comment: Wilbert torres Type: BLOOD SPECIMENOrdering Facility: [facility] Address: [address] [place] [address] Performed By: #### 2 4323-8, , 88981-5 ####[facility] LABCLIA [id number] [place] [address] [place] Protein [Mass/Vol] 7.5 g/dL Normal 6.3-8.0 [facility] Comment on above: Order Comment: Wilbert torres Type: BLOOD SPECIMENOrdering Facility: [facility] Address: [address] [place], [place] [address] Performed By: #### 2 4323-8, , 39414-9 ####[employer] [facility] LABCLIA [id number] [place] [address] [place] Sodium [Moles/Vol] 133 mmol/L Low 136-144 [facility] Comment on above: Order Comment: Speci men Type: BLOOD SPECIMENOrdering Facility: [facility] Address: [address] [place] [address] Performed By: #### 2 4323-8, 75696-5, 10165-9 ####[facility] LABCL[facility] [id number] [facility] [address] [place] Urea nitrogen [Mass/Vol] 13 mg/dL Normal 9-24 [facility] Comment on above: Order Comment: Speci men Type: BLOOD SPECIMENOrdering Facility: [facility] Address: [address] [place] [address] Performed By: #### 2 4323-8, 41035-0, 84901-3 ####[facility] LABCLIA [id number] [facility] [place] [address] [place] ECG COMPLETEon 10-24-2024 ECG COMPLETE Ventricular Rate : 9 3 BPM Atrial Rate : 93 BPM P-R Interval : 134 ms QRS Duration : 122 ms Q-T Interval : 388 ms QTC Calculation(Bazett) : 482 ms Calculated P [place] : 45 degrees Calculated R [place] : 71 degrees Calculated T [place] : 26 degrees SINUS RHYTHM WITH OCCASIONAL PREMATURE VENTRICULAR COMPLEXES RIGHT BUNDLE BRANCH BLOCK ABNORMAL ECG WHEN COMPARED WITH ECG OF 14-Jul-2024 13:13, PREMATURE VENTRICULAR COMPLEXES ARE NOW PRESENT Confirmed by MD SUAREZ VINAYAK ([id number]) on 10/25/2024 2:19:53 PM NAME : ELIS BILLS PID : [id number] : 1960 Gender : Male Race : ORD : [id number] Procedure Date : Oct 24 2024 09:16:43 Edit Date : Oct 25 2024 14:19:54 Diagnosis: SINUS RHYTHM WITH OCCASIONAL PREMATURE VENTRICULAR COMPLEXES RIGHT BUNDLE BRANCH BLOCK ABNORMAL ECG WHEN COMPARED WITH ECG OF 14-Jul-2024 13:13, PREMATURE VENTRICULAR COMPLEXES ARE NOW PRESENT Confirmed by MD SUAREZ VINAYAK ([id number]) on 10/25/2024 2:19:53 PM Test Reason : Chest Pain Location : 191 : [facility] ED Overread By : MD SUAREZ VINAYAK Edited By : MD SUAREZ VINAYAK Referred By : , Acquired by : DAREN RUCKER [facility] ED NOTEon 10-24-2024 ED NOTE HNO ID: [id number] Author: JORGE JONES RN Service: Nursing Author Type: Registered Nurse Type: ED Notes Filed: 10/24/2024 18:22 Note Text: Patient leaves ED with [facility]. [facility] ED NOTE HNO ID: [id number] Author: JORGE JONES RN Service: Nursing Author Type: Registered Nurse Type: ED Notes Filed: 10/24/2024 18:15 Note Text: at bedside with patient and EMS. [facility] ED NOTE HNO ID: [id number] Author: JORGE JONES RN Service: Nursing Author Type: Registered Nurse Type: ED Notes Filed: 10/24/2024 18:14 Note Text: [facility] remains in room with patient on their monitor. They are transferring patient to EMS BiPAP. [facility] ED NOTE HNO ID: [id number] Author: JORGE JONES RN Service: Nursing Author Type: Registered Nurse Type: ED Notes Filed: 10/24/2024 16:52 Note Text: [facility] ETA 45-60 minutes [facility] ED NOTE HNO ID: [id number] Author: YOVANY JULIEN RN Service: ? Author Type: Registered Nurse Type: ED Notes Filed: 10/24/2024 16:51 Note Text: Bed assignment [address] bed 412 Report [phone] [facility] ED NOTE HNO ID: [id number] Author: JORGE JONES RN Service: Nursing Author Type: Registered Nurse Type: ED Notes Filed: 10/24/2024 16:20 Note Text: Patient removed from bi pap for a demanded break. Nasal canula at 6L applied. aware. Respiratory therapy remains at bedside during the break from BiPap. [facility] ED NOTE HNO ID: [id number] Author: JORGE JONES RN Service: Nursing Author Type: Registered Nurse Type: ED Notes Filed: 10/24/2024 14:19 Note Text: BiPAP removed per patient demands. Nasal Canula reapplied. [facility] ED NOTE HNO ID: [id number] Author: JORGE JONES RN Service: Nursing Author Type: Registered Nurse Type: ED Notes Filed: 10/24/2024 13:50 Note Text: Patient has asked twice to have BiPap removed. This RN discussed patients request with and Respiratory therapy. They will discuss with patient as well as this RN. [facility] ED NOTE HNO ID: [id number] Author: JORGE JONES RN Service: Nursing Author Type: Registered Nurse Type: ED Notes Filed: 10/24/2024 13:35 Note Text: accepts patient at [facility]. Will call back with bed assignment. [facility] ED NOTE HNO ID: [id number] Author: JORGE JONES RN Service: Nursing Author Type: Registered Nurse Type: ED Notes Filed: 10/24/2024 09:29 Note Text: Don presents with complaints of SOB. Wednesday he started to feel SOB during baptism with activity. He developed a fever (102f) [...] spouse has had ear pain and congestion. [facility] ED NOTE HNO ID: [id number] Author: JORGE JONES RN Service: Nursing Author Type: Registered Nurse Type: ED Notes Filed: 10/24/2024 18:09 Note Text: EMS AT BEDSIDE [facility] ED PROV NOTEon 10-24-2024 ED PROV NOTE HNO ID: [id number] Author: BRIAN ANGLIN MD Service: Emergency Medicine [...] symptoms. Pat (more content not included)... Normal [facility] HEMOGLOBIN A1Con 10-24-2024 Glucose [Mass/Vol] 117 mg/dL Normal [facility] Comment on above: Performed By: #### H STRP #### [facility] [address] [place], [place], HbA1c (Bld) [Mass fraction] 5.7 % High 4.0-5.6 [facility] Comment on above: Performed By: #### H STRP #### [facility] [address] [place], [place], HEPATIC FUNCTION PANELon Albumin [Mass/Vol] 4.2 g/dL [...] Albumin [Mass/Vol] 4.2 g/dL Normal 3.5-5.7 [facility] Comment on above: Performed By: #### C H8, HEPATIC, MG ####[facility] [id number] [place], [place], ALK 94 IU/L Normal 34-104 [facility] Comment on above: Performed By: #### Cosmo H8, HEPATIC, MG ####[facility] [id number] [place], [place], ALT [Catalytic activity/Vol] 19 U/L Normal 7-52 [facility] Comment on above: Performed By: #### Cosmo H8, HEPATIC, MG ####[facility] [id number] [place], [place], AST [Catalytic activity/Vol] 16 U/L Normal 13-39 [facility] Comment on above: Performed By: #### C H8, HEPATIC, MG ####[facility] [id number] [place], [place], Bilirubin [Mass/Vol] 0.6 mg/dL Normal 0.3-1.0 [facility] Comment on above: Performed By: #### Cosmo H8, HEPATIC, MG ####[facility] [id number] [place], [place], Bilirubin.direct [Mass/Vol] 0.14 mg/dL Normal 0.03-0.18 [facility] Comment on above: Performed By: #### Cosmo H8, HEPATIC, MG ####[facility] [id number] [place], [place], Protein [Mass/Vol] 7.1 g/dL Normal 6.0-8.3 [facility] Comment on above: Performed By: #### Cosmo H8, HEPATIC, MG ####S PATHOLOGY [id number] [place], [place], HIGH SENSITIVITY TROPONIN T (INITIAL)on 10-24-2024 Troponin T.cardiac High sensitivity method [Mass/Vol] 51 ng/L High <12 [facility] Comment on above: Order Comment: Speci men Type: BLOOD SPECIMENOrdering Facility: [facility] Address: [address] [place] [address] Performed By: #### L [id number] ####[facility] LABCLIA [id number] [place], [place] [id number] [place] [address] HIGH SENSITIVITY TROPONIN T (SECOND)on 10-24-2024 Troponin T.cardiac High sensitivity method [Mass/Vol] 47 ng/L High <12 [facility] Comment on above: Order Comment: Speci men Type: BLOOD SPECIMENOrdering Facility: [facility] Address: [address] [place] [address] Performed By: #### L [id number] ####[facility] LABCLIA [id number] [place] [address] [facility] HIGH SENSITIVITY TROPONIN T (THIRD) 3 HRS AFTER INITIALon 10-24-2024 Troponin T.cardiac High sensitivity method [Mass/Vol] 34 ng/L High <12 [facility] Comment on above: Order Comment: Speci men Type: BLOOD SPECIMENOrdering Facility: [facility] Address: [address] [place], [place] [address] Performed By: #### 3 2355-0 #### [facility] CLIA [id number] [address] [place] [address] [place] Lactate (Bld) [Moles/Vol]on 10-24-2024 Lactate [Moles/Vol] 1.8 mmol/L Normal 0.5-2.2 [facility] Comment on above: Order Comment: Speci men Type: BLOOD SPECIMENOrdering Facility: [facility] Address: [address] [place] [address] Performed By: #### 3 2693-4 ####[facility] LABCLIA [id number] [place] [address] [place] MAGNESIUMon 10-24-2024 Magnesium [Mass/Vol] 2.2 mg/dL 1.9 - 2 .7 mg/dL [facility] Magnesium [Mass/Vol] 2.2 mg/dL Normal 1.9-2.7 [facility] Comment on above: Performed By: #### C H8, HEPATIC, MG ####[facility] [id number] [place], [address] Magnesium SerPl-mCncon 10-24 Magnesium [Mass/Vol] 1.9 mg/dL Normal 1.7-2.3 [facility] Comment on above: Order Comment: Speci men Type: BLOOD SPECIMENOrdering Facility: [facility] Address: [address] [place] [address] Performed By: #### 2 4323-8, 04839-1, 58853-3 ####[facility] LABCLIA [id number] [place] [address] [place] NT-proBNP SerPl-mCncon 10-24 Natriuretic peptide.B prohormone N-Terminal [Mass/Vol] 1007 pg/mL High <125 [facility] Comment on above: Order Comment: Speci men Type: BLOOD SPECIMENOrdering Facility: [facility] Address: [address] [place] [address] Performed By: #### 2 4323-8, 36591-4, 70364-1 ####[facility] LABCLIA [id number] [place] [address] [place] No Panel Informationon 10-24 Interpretation and review of laboratory results Normal [facility] Progress Noteson 10-24-2024 Edge [employer] Authentication Interface Message Text [facility] Internal Medicine Assisted Plan Note Elis Bills Age [age] year old male ROOM: [place] [address] Admitted No admission date for patient encounter. [...] - nicotine patch Remainder of plan per customer success intern note. Raji Curran MD Internal Medicine, PGY-3 Available via [employer] Normal [facility] RED/YELLOW TOP TUBE, [...] Protein (U) [Mass/Vol] 70 mg/dL Abnormal Negative [facility] Specific gravity (U) [Rel density] 1.036 High NINF - 1.030 [facility] Urobilinogen Qn (U) Negative Negative mg/dL [facility] WBC (U) [#/Vol] 0-2 [facility] [...] (positive predictive value for UTI around 50%) [facility] Glucose Ql (U) Negative Normal Negative [facility] Comment on above: Order Comment: A neg ative leukocyte esterase AND negative nitrite test or [...] (positive predictive value for UTI around 50%) Performed By: #### I GE #### [facility] [address] [place] [address], [address] Protein (U) [Mass/Vol] 70 mg/dL Abnormal Negative Th e [facility] Comment on above: Order Comment: A neg ative leukocyte esterase AND negative nitrite test or [...] (positive predictive value for UTI around 50%) Performed By: #### I GE #### [facility] [address] [place] [address], U APPEAR Clear Normal Clear [facility] Comment on above: Order Comment: A neg ative leukocyte esterase AND negative nitrite test or [...] (positive predictive value for UTI around 50%) Performed By: #### I GE #### [facility] [address] [place] [address], U BILI Negative Normal Negative [facility] Comment on above: Order Comment: A neg ative leukocyte esterase AND negative nitrite test or [...] (positive predictive value for UTI around 50%) Performed By: #### I GE #### [facility] [address] [place] [address], U BLOOD Trace Abnormal Negative [facility] Comment on above: Order Comment: A neg ative leukocyte esterase AND negative nitrite test or [...] (positive predictive value for UTI around 50%) Performed By: #### I GE #### [facility] [address] [place] [address], U COLOR Yellow Normal Colorless [facility] Comment on above: Order Comment: A neg ative leukocyte esterase AND negative nitrite test or [...] (positive predictive value for UTI around 50%) Performed By: #### I GE #### [facility] [address] [place] [address], U KETONE Negative Normal Negative [facility] Comment on above: Order Comment: A neg ative leukocyte esterase AND negative nitrite test or [...] (positive predictive value for UTI around 50%) Performed By: #### I GE #### [facility] [address] [place] [address], U LEUK Negative Normal Negative [facility] Comment on above: Order Comment: A neg ative leukocyte esterase AND negative nitrite test or [...] (positive predictive value for UTI around 50%) Performed By: #### I GE #### [facility] [address] [place] [address], U NITRITE Negative Normal Negative [facility] Comment on above: Order Comment: A neg ative leukocyte esterase AND negative nitrite test or [...] (positive predictive value for UTI around 50%) Performed By: #### I GE #### [facility] [address] [place] [address], U PH 6.5 Normal 5.0-8.0 [email or web address] Comment on above: Order Comment: A neg ative leukocyte esterase AND negative nitrite test or [...] (positive predictive value for UTI around 50%) Performed By: #### I GE #### [facility] [address] [place], [place], U RBC 0-2 Normal 0-2 [email or web address] Comment on above: Order Comment: A neg ative leukocyte esterase AND negative nitrite test or [...] (positive predictive value for UTI around 50%) Performed By: #### I GE #### [facility] [address] [place], [place], U SG 1.036 High <=1.030 [email or web address] Comment on above: Order Comment: A neg ative leukocyte esterase AND negative nitrite test or [...] (positive predictive value for UTI around 50%) Performed By: #### I GE #### [facility] [address] [place] [address], U UROBILI Negative Normal Negative [facility] Comment on above: Order Comment: A neg ative leukocyte esterase AND negative nitrite test or [...] (positive predictive value for UTI around 50%) Performed By: #### I GE #### [facility] [address] [place] [address], U WBC 0-2 Normal 0-2 [email or web address] Comment on above: Order Comment: A neg ative leukocyte esterase AND negative nitrite test or [...] (positive predictive value for UTI around 50%) Performed By: #### I GE #### [facility] [address] [place] [address], XR CHEST 1V FRONTALon 2024 XR CHEST [...] Other: . IMPRESSION: No acute radiographic abnormality. Litigation Attorney: PSCB Transcribe Date/Time: Oct 24 2024 10:21A Dictated by : AFTAB MARTINEZ MD This examination was interpreted and the report reviewed and electronically signed by: AFTAB MARTINEZ MD on Oct 24 2024 10:22AM EST [id number] Normal [facility] XR CHEST AP OR PA 1 VIEWon [...] or mild edema. MACRO: None Normal [email or web address] XR Chest Single viewon 10-24 EXAMINATION: [...] atypical/viral pneumonia or mild edema. MACRO: None [facility] Radiology Study observation (narrative) [facility] XR Chest Single viewOrdered By: Hilda De León on 10-24-2024 [employer] Work Phone: [phone] 09-12-2024 [id number] HNO ID: [id number] Author: VARUN SAHNI PT Service: ? 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 Restore pain-free lumbar [...] Planned: 4 Planned Treatment Interventions: Therapeutic exercise (87441), Neuromuscular re-education (85575), Manual therapy (21600), Therapeutic activities (52422), Self-fdc management (65747), Patient/Family/Caregi sudhakar Education, Body Mechanics Training PLAN [...] have reviewed the treatment plan for Elis Bills, [facility]# [id number] for the period of 09/12/24 -- 10/17/24, established on 09/12/2024. Signature certifies the need for therapy services. Normal [facility] CNTHERAPYon 09-12-2024 CNTHERAPY OT/PT/Speech Visit (PTWS) ELIS BILLS ([id number]) 1960 M Date Time Provider Department 09/12/24 8:30 AM VARUN SAHNI PTWS Date Time Provider Department Center 09/12/2024 8:30 AM [id number], COLIN PTWS Mila Sanchez Reason for Visit: [...] Take 2.5 mg by mouth once daily. Edge Drummer: Addendum Therapy (PT/OT/Speech/Resp) ID: [id number] 09/12/2024 9:11 AM Author: VARUN SAHNI Signed by VARUN SAHNI PT on 09/12/2024 at 9:11 AM * * * This document replaces document [id number] * * * Document text: Program_ID:[id number] Access Code: [email or web address] URL: [email or web address]/ Date: 09-12-2024 Prepared By: Varun Sahni Program Notes Exercises - Supine Transversus Abdominis [...] 10 reps - Seated Flexion Stretch with South [place] Ball - 2 x daily - 7 x weekly - 2 sets - 10 reps - Seated Thoracic Flexion and Rotation with [place] Ball - 2 x daily - 7 x weekly - 2 sets - 10 reps ----- Normal [facility] THERAPY NTon 09-12-2024 THERAPY NT HNO ID: [id number] Author: VARUN SAHNI, PT Service: ? Author Type: Physical Therapist Type: Therapy (PT/OT/Speech/Resp) Filed: 09/12/2024 09:11 Note Text: Program_ID:[id number] Access Code: [email or web address] URL: [email or web address]/ Date: 09-12-2024 Prepared By: Varun Sahni Program Notes Exercises - Supine Transversus Abdominis [...] 10 reps - Seated Flexion Stretch with South Korean Ball - 2 x daily - 7 x weekly - 2 sets - 10 reps - Seated Thoracic Flexion and Rotation with [place] Ball - 2 x daily - 7 x weekly - 2 sets - 10 reps [facility] (NEAGCLM) ELIS BILLS ([id number]) 1960 M Date Time Provider Department 09/05/24 LOIS HOANG NEAGC During your visit today, we recorded the following information about you: Brooke Barber 09/05/2024 8:16 AM Signed LVM that appt [...] region, without neuroge*07/28/2024 Encounter Status:Closed by BROOKE BARBER on 09/05/24 [facility] CNPKrissy 08-28-2024 CNPN Telephone (NEAGCLM) ELIS BILLS ([id number]) 1960 M Date Time Provider Department 08/28/24 LOIS HOANG During your visit today, we recorded the following information about you: Puma Nicolas MA 08/28/2024 2:37 PM Signed Referral placed for physical therapy in the [facility] Internal Referral Portal. Confirmation # [id number] Puma Nicolas Ma Allergies As of Date: [...] Status:Closed by PUMA NICOLAS MA on 08/28/24 [facility] CNOVon 08-10-2024 CNOV Office Visit (NEAGCLM) SANJUELIS J ([id number]) 1960 M Date Time Provider Department 08/10/24 1:00 PM LOIS HOANG NEAGCLM During your visit today, we recorded the following information about you: Pulse Blood pressure Weight Height 63/minute 170/90 116.8 kg 1.753 m Lois Hoang MD 08/10/2024 1:30 PM Signed NEUROSURGERY POST-OP NOTE Lois Hoang MD [facility] Date of visit: August 10, 2024 Patient Name: Mr.Donald Tim Bills Date of : 1960 Current Age: [age] year old Sex: male MRN/E# [id number] Last Office Visit: 08/02/2024 SURGERY: L1 decompression laminectomy - 07/28/2024 Pre-Surgical Symptoms: right low back pain Past Medical/Surgical History: Elis Bills is a 63 year old male who is referred by Bertha Kaur APRN, CNP with pain management for neurosurgical [...] Strength Exam (more content not included)... Normal [facility] Basic metabolic 2000 panelon 07-29-2024 Anion gap [Moles/Vol] 10 mmol/L Normal 8-15 [facility] Comment on above: Order Comment: Speci men Type: BLOOD SPECIMENOrdering Facility: [facility] Address: [address] [place] [address] Performed By: #### 2 692-2, 45719-2 ####[facility] [id number] [place] [address] [place] Calcium [Mass/Vol] 8.6 mg/dL Normal 8.5-10.2 [facility] Comment on above: Order Comment: Speci men Type: BLOOD SPECIMENOrdering Facility: [facility] Address: [address] [place] [address] Performed By: #### 2 692-2, 94223-4 ####[facility]ATORYCLIA [id number] [place] [address] [place] Chloride [Moles/Vol] 86 mmol/L Low 98-107 [facility] Comment on above: Order Comment: Speci men Type: BLOOD SPECIMENOrdering Facility: [facility] Address: [address] [place] [address] Performed By: #### 2 692-2, 02809-6 ####[facility]ORY[facility]IA [id number] [place] [address] [place] CO2 [Moles/Vol] 25 mmol/L Normal 22-30 [facility] Comment on above: Order Comment: Speci men Type: BLOOD SPECIMENOrdering Facility: [facility] Address: [address] [place] [address] Performed By: #### 2 692-2, 59015-4 ####[facility]ORYCLIA [id number] [place] [address] [place] Creatinine [Mass/Vol] 0.98 mg/dL Normal 0.73-1.22 [facility] Comment on above: Order Comment: Speci men Type: BLOOD SPECIMENOrdering Facility: [facility] Address: [address] [place] [address] Performed By: #### 2 692-2, 04114-9 ####[facility] [id number] [address] Creatinine and Glomerular filtration rate.predicted panel (S/P/Bld) 86 mL/min/1.73m??? Normal >=60 [facility] Comment on above: Order Comment: Wilbert torres Type: BLOOD SPECIMENOrdering Facility: [facility] Address: [address] [place] [address] Result Comment: Lala mated Glomerular Filtration Rate [...] actual GFR. Performed By: #### 2 692-2, 42924-4 ####[facility] [id number] [address] Glucose [Mass/Vol] 113 mg/dL High 74-99 [facility] Comment on above: Order Comment: Wilbert torres Type: BLOOD SPECIMENOrdering Facility: [facility] Address: [address] [place] [address] Result Comment: The [place] Diabetes Association (ADA) provides guidance for cutoff [...] Standards of Medical Care in Diabetes 2016, [place] Diabetes Association. Diabetes Care. 2016.39(Suppl 1). Performed By: #### 2 692-2, 42899-2 ####[facility] [id number] [address] STATES OF [facility] Potassium [Moles/Vol] 5.3 mmol/L High 3.7-5.1 [facility] Comment on above: Order Comment: Speci men Type: BLOOD SPECIMENOrdering Facility: [facility] Address: [address] [place] [address] Performed By: #### 2 692-2, 57517-8 ####[facility] LABORATORYCLIA [id number] [address] Sodium [Moles/Vol] 121 mmol/L Low 136-144 [facility] Comment on above: Order Comment: Speci men Type: BLOOD SPECIMENOrdering Facility: [facility] Address: [address] [place] [address] Performed By: #### 2 692-2, 67335-0 ####[facility] LABORATORYCLIA [id number] [address] Urea nitrogen [Mass/Vol] 11 mg/dL Normal 9-24 [facility] Comment on above: Order Comment: Speci men Type: BLOOD SPECIMENOrdering Facility: [facility] Address: [address] [place] [address] Performed By: #### 2 692-2, 77704-3 ####[facility] LABORATORYCLIA [id number] [address] CASE MANAGEMon 07-29-2024 CASE MANAGEM HNO ID: [id number] Author: AUSTIN CHERRY RN Service: ? Author Type: Registered Nurse [...] less than 2 midnight stay SIGNATURE: Austin Cherry RN PATIENT NAME: Elis Bills DATE: July [...] the process utilized to ensure compliance with [facility] policy regarding Inpatient Admission and Observation Services. [...] order as documented evidence of concurrence. Normal [facility] CBC panel Auto (Bld)on 07-29 Erythrocyte distribution width (RBC) [Ratio] 13.4 % Normal 11.5-15.0 [facility] Comment on above: Order Comment: Speci brian Type: BLOOD SPECIMENOrdering Facility: [facility] Address: [address] [place] [address] Performed By: #### 3 2355-0 #### [facility] CLIA [id number] [address] STATES OF [facility] Hematocrit (Bld) [Volume fraction] 38.0 % Low 39.0-51.0 [facility] Comment on above: Order Comment: Wilbert torres Type: BLOOD SPECIMENOrdering Facility: [facility] Address: [address] [place] [address] Performed By: #### 3 2355-0 #### [facility] CLIA [id number] [address] [place] Hemoglobin (Bld) [Mass/Vol] 12.7 g/dL Low 13.0-17.0 [facility] Comment on above: Order Comment: Speci men Type: BLOOD SPECIMENOrdering Facility: [facility] Address: [address] [place] [address] Performed By: #### 3 2355-0 #### [facility] CLIA [id number] [address] MCH (RBC) [Entitic mass] 28.8 pg Normal 26.0-34.0 [facility] Comment on above: Order Comment: Speci men Type: BLOOD SPECIMENOrdering Facility: [facility] Address: [address] [place] [address] Performed By: #### 3 2355-0 #### [facility] CLIA [id number] [address] MCHC (RBC) [Mass/Vol] 33.4 g/dL Normal 30.5-36.0 [facility] Comment on above: Order Comment: Speci men Type: BLOOD SPECIMENOrdering Facility: [facility] Address: [address] [place] [address] Performed By: #### 3 2355-0 #### [facility] CLIA [id number] [address] MCV (RBC) [Entitic vol] 86.2 fL Normal 80.0-100.0 [facility] Comment on above: Order Comment: Speci men Type: BLOOD SPECIMENOrdering Facility: [facility] Address: [address] [place] [address] Performed By: #### 3 2355-0 #### [facility] CLIA [id number] [address] Nucleated RBC (Bld) [#/Vol] 10*3/uL Normal <0.01 [facility] Comment on above: Order Comment: Speci men Type: BLOOD SPECIMENOrdering Facility: [facility] Address: [address] [place] [address] Performed By: #### 3 2355-0 #### [facility] CLIA [id number] [address] [place] Platelet mean volume (Bld) [Entitic vol] 9.3 fL Normal 9.0-12.7 [facility] Comment on above: Order Comment: Speci men Type: BLOOD SPECIMENOrdering Facility: [facility] Address: [address] [place] [address] Performed By: #### 3 2355-0 #### [facility] CLIA [id number] [address] [place] Platelets (Bld) [#/Vol] 296 10*3/uL Normal 150-400 [facility] Comment on above: Order Comment: Speci men Type: BLOOD SPECIMENOrdering Facility: [facility] Address: [address] [place] [address] Performed By: #### 3 2355-0 #### [facility] CLIA [id number] [address] RBC (Bld) [#/Vol] 4.41 10*6/uL Normal 4.20-6.00 [facility] Comment on above: Order Comment: Speci men Type: BLOOD SPECIMENOrdering Facility: [facility] Address: [address] [place] [address] Performed By: #### 3 2355-0 #### [facility] CLIA [id number] [address] [place] WBC (Bld) [#/Vol] 12.07 10*3/uL High 3.70-11.00 [facility] Comment on above: Order Comment: Speci men Type: BLOOD SPECIMENOrdering Facility: [facility] Address: [address] [place] [address] Performed By: #### 3 2355-0 #### [facility] CLIA [id number] [address] CNDSon 07-29-2024 CNDS HNO ID: [id number] Author: ISABELLA SANTACRUZ PA-C Service: Neurosurgery Author Type: Physician Clinic Lpn Type: Discharge Summary Filed: 07/29/2024 15:16 Note Text: Attestation signed by Lois Hoang MD at 07/29/2024 3:22 PM I agree with the discharge summary as written below. Lois Hoang MD DISCHARGE SUMMARY PATIENT NAME: Elis Bills [...] 160-9-4.8 mcg/actuation HFA aerosol inhaler Generic drug: wsdflmomet-ebtnkfjg-j ormoterol budesonide 0.5 mg/2 mL nebulizer solution Commonly known as: PULMICORT Use 2 mL via nebulizer two times a day. lisinopril 2.5 mg tablet montelukast 10 mg tablet Commonly known as: SINGULAIR Take 1 tablet by mouth daily at bedtime. nicotine polacrilex 4 mg gum Commonly known as: NICORETTE Take 1 Each by mouth as needed. omeprazo (more content not included)... Normal [facility] CONSULTon 07-29-2024 CONSULT HNO ID: [id number] Author: RADHA LUO MD Service: Nephrology Author [...] S2 Lungs (more content not included)... Normal [facility] CONSULT PROGon 07-29-2024 CONSULT PROG HNO ID: [id number] Author: OBIE ESPARZA DO Service: Hospital Medicine Author Type: Physician Type: Consult Progress Note Filed: 07/29/2024 11:02 Note Text: DEPARTMENT OF HOSPITAL MEDICINE CONSULT PROGRESS NOTE SERVICE DATE: 07/29/2024 SERVICE TIME: 10:52 AM Primary Care Physician: Pilar Lanza DO NIGHT AND WEEKEND COVERAGE: [place] COVERAGE: After 7pm, please call cross cover pager #[phone] Subjective INTERVAL HPI: 64-year-old male with past [...] and Airways Line Duration Peripheral 07/28/24 0931 [facility] Short Right Hand 18 Gauge 1 [...] discussed with: Provider, RN, Patient SIGNATURE: Obie Esparza DO PATIENT NAME: Elis Bills DATE: July 29, 2024 TIME: 10:52 AM etx [id number] Normal [facility] Osmolality SerPlon Osmolality [Osmolality] 270 mosm/kg Low 275-300 [facility] Comment on above: Order Comment: Speci men Type: BLOOD SPECIMENOrdering Facility: [facility] Address: [address] [place] [address] Performed By: #### 2 692-2, 57624-0 ####[facility] LABORATORYCLIA [id number] [place] [address] [place] Osmolality Uron 07-29-2024 Osmolality (U) [Osmolality] 368 mosm/kg Normal 50-1200 [facility] Comment on above: Order Comment: Speci men Type: URINE SPECIMENOrdering Facility: [facility] Address: [address] [place] [address] Performed By: #### 6 00-7 #### [facility] CLIA [id number] [address] [place] [address] [place] Sodium ?Tm Ur-sCncon 025 Sodium Unsp time (U) [Moles/Vol] <20 Normal 14-216 [facility] Comment on above: Order Comment: Speci men Type: URINE SPECIMENOrdering Facility: [facility] Address: [address] [place] [address] Performed By: #### 6 -7 #### [facility] CLIA [id number] [address] [place] [address] [place] Sodium SerPl-sCncon 07-29-19 25 Sodium [Moles/Vol] 128 mmol/L Low 136-144 [facility] Comment on above: Order Comment: Speci men Type: BLOOD SPECIMENOrdering Facility: [facility] Address: [address] [place] [address] Performed By: #### 6 -7 #### [facility] CLIA [id number] [address] [place] Sodium [Moles/Vol] 129 mmol/L Low 136-144 [facility] Comment on above: Order Comment: Speci men Type: BLOOD SPECIMENOrdering Facility: [facility] Address: [address] [place] [address] Performed By: #### 2 951-2 ####[facility]ORYCLIA [id number] [place] [address] [place] Sodium [Moles/Vol] 125 mmol/L Low 136-144 [facility] Comment on above: Order Comment: Speci men Type: BLOOD SPECIMENOrdering Facility: [facility] Address: [address] [place] [address] Performed By: #### 2 951-2 ####[facility]ORYCLIA [id number] [place] [address] [place] THERAPY NTon 07-29-2024 THERAPY NT HNO ID: [id number] Author: FLORENCE AELXANDRE OTR/L Service: Occupational Therapy Author Type: Occupational Therapist Type: Therapy (PT/OT/Speech/Resp) Filed: 07/29/2024 11:40 Note Text: Occupational Therapy Evaluation Summary SERVICE DATE: 07/29/2024 SERVICE TIME: 948 to 1003 ROOM: [id number] OT 6 Clicks Score: 21 DISCHARGE RECOMMENDATIONS [...] FUNCTIONAL LEVEL Within Functional Limits 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, 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, 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 Baseline Cognition: Oriented to self, Oriented to place, Oriented to time, Oriented to situation SUBJECTIVE agreeable to session COGNITION Responsiveness: Alert Follows Commands: 3-step Commands THERAPY DIAGNOSIS Reduced mobility-other, Decreased activities of daily living (ADL) TREATMENT INTERVENTIONS Evaluation Skilled Treatment Time (minutes): 15 $ Evaluation - Low (47926) Billed Units: 1 unit Educated patient on [...] of Occupational Therapy, Standing Balance to Improve Teller with ADLs/Self-Care, Transfer - Toilet/Commode THERAPEUTIC SKILLS [...] July 29, 2024 TIME: 11:39 AM Normal [facility] THERAPY NT HNO ID: [id number] Author: ANDREA PISANO PT Service: Physical Therapy Author Type: Physical Therapist Type: Therapy (PT/OT/Speech/Resp) Filed: 07/29/2024 09:17 Note Text: Physical Therapy Evaluation Summary SERVICE DATE: 07/29/2024 SERVICE TIME: 814 to 841 ROOM: [id number] PT 6 Clicks Score: 21 DISCHARGE RECOMMENDATIONS [...] FUNCTIONAL LEVEL Within Functional Limits 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, 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, 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 SUBJECTIVE Patient pleasant and agreeable to PT session THERAPY DIAGNOSIS Muscle Weakness (generalized), General symptoms and signs-other TREATMENT INTERVENTIONS Evaluation, Therapeutic Activity (36111) $ Evaluation-Moderate (99457) Billed Units: 1 unit Therapeutic Activity (95060) Treatment Minutes: 9 $ Therapeutic Activity (33956) Billed Units: 1 unit Educated patient on [...] July 29, 2024 TIME: 9:14 AM Normal [facility] ANES POSTPROC EVALon 025 ANES POSTPROC EVAL HNO ID: [id number] Author: PAOLA REYES MD Service: Anesthesiology Author Type: Anesthesiologist Type: Anesthesia Postprocedure Evaluation Filed: 07/28/2024 16:23 Note Text: POST ANESTHESIA EVALUATION NOTE : 1960 Procedure Summary Date: 07/28/24 Room / Location: [place] OR 01 / [place] Anesthesia Start: 1155 Anesthesia Stop: 1431 Procedures: DECOMPRESSION LAMINECTOMY LUMBAR POSTERIOR LEVEL 1 (Spine Lumbar) DECOMPRESSION LAMINECTOMY 1ST ADD'L LUMBAR SEGMENT (Spine Lumbar) Diagnosis: Spinal stenosis of lumbar region with neurogenic claudication (Spinal stenosis of lumbar region with neurogenic claudication [M48.062]) Surgeons: Lois Hoang MD Responsible Provider: Paola Reyes MD Anesthesia [...] July 28, 2024 TIME: 3:18 PM CSN: [id number] Normal [facility] ANES PRE-OPon 07-28-2024 ANES PRE-OP HNO ID: [id number] Author: PAOLA REYES MD Service: Anesthesiology Author Type: Anesthesiologist Type: Anesthesia Preprocedure Evaluation Filed: 07/28/2024 10:40 Note Text: ANESTHESIOLOGY DAY OF SURGERY NOTE : 1960 Procedure Information Date/Time: 07/28/24 1045 Procedures: DECOMPRESSION LAMINECTOMY LUMBAR POSTERIOR LEVEL 1 (Spine Lumbar) DECOMPRESSION LAMINECTOMY 1ST ADD'L LUMBAR SEGMENT (Spine Lumbar) Location: [place] OR Surgeons: Lois Hoang MD Estimated body mass index is 41.05 [...] and consent discussed: yes. Patient / Responsible Alliance Party agrees to proceed: yes Patient / Surrogate agrees to blood products: Yes Potential Anesthesia issues that may suggest increased risk of complications or contraindication to planned procedure: potential difficult intubation. Vitals Value Taken Time BP 142/66 07/28/24930 Pulse 74 07/28/24930 Resp 16 07/28/24930 Temp 36.7 ?C (98.1 ?F) 07/28/24930 SpO2 92 % 07/28/24930 No current facility-administered medications on file as of 07/28/2024. Outpatient Medications as of 07/28/2024 Medication Sig BREZTRI AEROSPHERE 160-9-4.8 mcg/actuation HFA aerosol inhaler [...] July 28, 2024 TIME: 10:34 AM CSN: [id number] Normal [facility] CONSULTon 07-28-2024 CONSULT HNO ID: [id number] Author: KAYDEN KOHLI MD Service: Hospital Medicine Author Type: Physician Type: Consults Filed: 07/28/2024 19:14 Note Text: DEPARTMENT OF HOSPITAL MEDICINE INITIAL CONSULT SERVICE DATE: 07/28/2024 SERVICE TIME: 7:02 PM Primary Care Physician: Pilar Lanza, NIGHT AND WEEKEND COVERAGE: LOUISA COVERAGE: From 7am - 7pm, please call team pager After 7pm, please call cross cover pager #[phone] REASON FOR CONSULT: . REQUESTING PHYSICIAN: Dr. Hoang Subjective CHIEF COMPLAINT: back pain HPI: 64-year-old [...] patient been tested for COVID-19 outside of [facility]? No PAST MEDICAL HISTORY Diagnosis Date [...] mg OR (more content not included)... Normal [facility] OPERATIVE NOon 07-28-2024 OPERATIVE NO HNO ID: [id number] Author: LOIS HOANG MD Service: Neurosurgery Author Type: Physician Type: Operative Report Filed: 08/09/2024 09:06 Note Text: OPERATIVE/PROCEDURE REPORT LOG ID: [id number] SURGERY/PROCEDURE DATE: 07/28/2024 INCISION/PROCEDURE START TIME: 12:43 PM INCISION CLOSE/PROCEDURE END TIME: 2:13 PM SURGEON(S)/PROCEDURAL IST(S) AND TRAVEL SALES CONSULTANT(S): Surgeons and Role: * Lois Hoang MD - Primary Physician Clinic Lpn: Lisandro Fulton PA-C; Austin Solo PA-C SURGERY/PROCEDURE(S): [...] the decompression, and during closure. SIGNATURE: Lois Hoang MD PATIENT NAME: Elis Bills DATE: August 09, 2024 TIME: 9:01 AM Normal [facility] XR LUMBAR SPECIFY 1Von 07-28 XR LUMBAR SPECIFY 1V * * *Final Report* * * DATE OF EXAM: Jul 28 2024 2:35PM [facility] 5234 - XR LUMBAR SPECIFY 1V / [...] notes for further details of the procedure. Litigation Attorney: YAIR Transcribe Date/Time: Aug 01 2024 1:44P Dictated by : CRISTIAN FREITAS MD This examination was interpreted and the report reviewed and electronically signed by: CRISTIAN FREITAS MD on Aug 01 2024 1:47PM EST [id number] N Normal [facility] XR VERIFY LEVEL D-CTIED-HLjw 07-28-2024 XR VERIFY LEVEL L-SPINE-NB * * [...] telephone with lumbar level agreement by Dr. Hoang on 07/28/2024 1:02 PM. Litigation Attorney[facility] Transcribe Date/Time: Jul 28 2024 1:02P Dictated by : SUNITA SMITH MD This examination was interpreted and the report reviewed and electronically signed by: SUNIAT SMITH MD on Jul 28 2024 1:11PM EST [id number] N Normal [facility] CNPNon 07-27-2024 CNPN Telephone ([facility]) ELIS BILLS ([id number]) 1960 M Date Time Provider Department 07/27/24 LOIS HOANG [facility] During your visit today, we recorded the following information about you: Stephane Bazan 07/27/2024 9:21 AM Signed Contacted patient to remind them of their arrival time for surgery with Dr. Lois Hoang on 07/28/24. Patient is to arrive at [facility] at 8:30am for surgery at 10:30am. Spoke with patient and they are aware of all arrival information. Allergies As of Date: 07/27/2024 Noted Allergy Reaction PENICILLINS 08/27/2014 14 - Other: See Comments Comments: Respiratory distress as a baby DALIRESP (ROFLUMILAST) 07/14/2024 2 - Rash Date Reviewed: 07/14/2024 Reviewed by: Harvey Purvis APRN.PROFESSOR OF MARKETING - Fully Assessed Reason for Visit: Preparations [...] Encounter Status:Closed by STEPHANE BAZAN on 07/27/24 [facility] NURSING PROGon 07-27-2024 NURSING PROG HNO ID: [id number] Author: CANDE BEAL APRN.PROFESSOR OF MARKETING Service: Anesthesiology Author Type: Nurse Practitioner Type: Nursing Progress Note Filed: 07/27/2024 10:16 Note Text: Abnormal labs from 07/14/24 from PAT appointment reviewed with Dr. Yen, anesthesiologist- Na 127, Cl 90, BUN 4. Okay to proceed with case tomorrow- pt will be evaluated DOS per Dr. Yen. [facility] NURSING PROGon 07-21-2024 NURSING PROG HNO ID: [id number] Author: YASHIRA LEYVA APRN.NABOR Service: ? Author Type: Nurse Practitioner Type: Nursing Progress Note Filed: 07/21/2024 13:39 Note Text: Summary: PAT Pulmonary clearance in Epic 07/21/2023 [facility] CNCOon 07-20-2024 CNCO Letter Text [facility] CNPNon 07-20-2024 CNPN Telephone ([facility]) ELIS BILLS ([id number]) 1960 M Date Time Provider Department 07/20/[address] [facility] During your visit today, we recorded the following information about you: Dalia Merritt 07/20/2024 3:46 PM Signed Type of form: Medical clearance for L2-L4 Laminectomy DOS: 07/28/24 TIMO Form received via fax When form is completed, Fax form to [phone] Form has been forwarded to Physician Mailbox: Dalia Garcia 07/21/2024 12:54 PM Signed Completed/signed form faxed back to Dr. Hoang's office. Dalia Merritt Allergies As of Date: 07/20/2024 Noted Allergy Reaction PENICILLINS 08/27/2014 14 - Other: See Comments Comments: Respiratory distress as a baby DALIRESP (ROFLUMILAST) 07/14/2024 2 - Rash Date Reviewed: 07/14/2024 Reviewed by: Harvey Purvis APRN.PROFESSOR OF MARKETING - Fully Assessed Reason for Visit: Medical [...] user [Z72.0] 07/14/2024 Encounter Status:Closed by DALIA MERRITT on 07/21/24 [facility] NURSING PROGon 07-20-2024 NURSING PROG HNO ID: [id number] Author: ARNULFO HERNANDEZ APRN.PROFESSOR OF MARKETING Service: General Surgery Author Type: Nurse Practitioner Type: Nursing Progress Note Filed: 07/20/2024 14:46 Note Text: Summary: PAT FELIPE Vizcaino at Dr. Hoang's office asking for pulmonary optimization as requested by anesthesia. [facility] 07-17-2024 NABORN Telephone ([facility]) ELIS BILLS ([id number]) 1960 M Date Time Provider Department 07/17/24 POLLY MCFARLANE During your visit today, we recorded the following information about you: Allergies As of Date: 07/17/2024 Noted Allergy Reaction PENICILLINS 08/27/2014 14 - Other: See Comments Comments: Respiratory distress as a baby DALIRESP (ROFLUMILAST) 07/14/2024 2 - Rash Date Reviewed: 07/14/2024 Reviewed by: Harvey Purvis APRN.PROFESSOR OF MARKETING - Fully Assessed Prescriptions as of 07/17/2024 [...] Status:Closed by POLLY MCFARLANE on 07/17/24 Normal [facility] NURSING PROGon 07-17-2024 NURSING PROG HNO ID: [id number] Author: POLLY MCFARLANE APRN.PROFESSOR OF MARKETING Service: Anesthesiology Author Type: Nurse Practitioner Type: [...] please follow up on pulmonary optimization. Normal [facility] Bacteria Ur Culton Bacteria identified Cx Nom (U) CULTURE, URINE: 10,000-<50,000 CFU/ml Normal Urogenital Mark Normal [facility] Comment on above: Performed By: #### 6 30-4 #### [facility] CLIA [id number] [address] [place] CBC panel Auto (Bld)on 07-14 Erythrocyte distribution width (RBC) [Ratio] 13.7 % Normal 11.5-15.0 [facility] Comment on above: Order Comment: Speci men Type: BLOOD SPECIMENOrdering Facility: [facility] Address: [address] [place] [address] Performed By: #### 5 8410-2 ####[facility]ORYCLIA [id number] [address] STATES OF [facility] Hematocrit (Bld) [Volume fraction] 39.9 % Normal 39.0-51.0 [facility] Comment on above: Order Comment: Speci men Type: BLOOD SPECIMENOrdering Facility: [facility] Address: [address] [place] [address] Performed By: #### 5 8410-2 ####[facility]ORYCLIA [id number] [address] [place] [facility] Hemoglobin (Bld) [Mass/Vol] 13.8 g/dL Normal 13.0-17.0 [facility] Comment on above: Order Comment: Speci men Type: BLOOD SPECIMENOrdering Facility: [facility] Address: [address] [place] [address] Performed By: #### 5 8410-2 ####[facility]ORYCLIA [id number] [address] MCH (RBC) [Entitic mass] 29.7 pg Normal 26.0-34.0 [facility] Comment on above: Order Comment: Speci men Type: BLOOD SPECIMENOrdering Facility: [facility] Address: [address] [place] [address] Performed By: #### 5 8410-2 ####[facility]ORYCLIA [id number] [address] MCHC (RBC) [Mass/Vol] 34.6 g/dL Normal 30.5-36.0 [facility] Comment on above: Order Comment: Speci men Type: BLOOD SPECIMENOrdering Facility: [facility] Address: [address] [place] [address] Performed By: #### 5 8410-2 ####[facility]ATORYCLIA [id number] [address] [place] MCV (RBC) [Entitic vol] 85.8 fL Normal 80.0-100.0 [facility] Comment on above: Order Comment: Speci men Type: BLOOD SPECIMENOrdering Facility: [facility] Address: [address] [place] [address] Performed By: #### 5 8410-2 ####[facility]ATORYCLIA [id number] [address] Nucleated RBC (Bld) [#/Vol] 10*3/uL Normal <0.01 [facility] Comment on above: Order Comment: Speci men Type: BLOOD SPECIMENOrdering Facility: [facility] Address: [address] [place] [address] Performed By: #### 5 8410-2 ####[facility]ATORYCLIA [id number] [address] [place] Platelet mean volume (Bld) [Entitic vol] 9.3 fL Normal 9.0-12.7 [facility] Comment on above: Order Comment: Speci men Type: BLOOD SPECIMENOrdering Facility: [facility] Address: [address] [place] [address] Performed By: #### 5 8410-2 ####[facility]ATORYCLIA [id number] [address] [place] Platelets (Bld) [#/Vol] 271 10*3/uL Normal 150-400 [facility] Comment on above: Order Comment: Speci men Type: BLOOD SPECIMENOrdering Facility: [facility] Address: [address] [place] [address] Performed By: #### 5 8410-2 ####[facility] LABORATORYCLIA [id number] [place] [address] [place] RBC (Bld) [#/Vol] 4.65 10*6/uL Normal 4.20-6.00 [facility] Comment on above: Order Comment: Speci men Type: BLOOD SPECIMENOrdering Facility: [facility] Address: [address] [place] [address] Performed By: #### 5 8410-2 ####[facility]ATORYCLIA [id number] [address] [place] WBC (Bld) [#/Vol] 7.91 10*3/uL Normal 3.70-11.00 [facility] Comment on above: Order Comment: Speci men Type: BLOOD SPECIMENOrdering Facility: [facility] Address: [address] [place] [address] Performed By: #### 5 8410-2 ####[facility]ATORYCLIA [id number] [address] CONFIRM BLOOD TYPEon 024 ABO O Normal [facility] Comment on above: Order Comment: Speci men Type: BLOOD SPECIMEN [facility] Address: [address] [place] [address] Performed By: #### C ONABO #### [facility] CLIA [id number] [address] OF [facility] Rh Nom (Bld) Positive Normal [facility] Comment on above: Order Comment: Speci men Type: BLOOD SPECIMEN [facility] Address: [address] [place] [address] Performed By: #### C ONABO #### [facility] CLIA [id number] [address] ABO group Nom (Bld) O [facility] Rh Nom (Bld) Positive [facility] Comprehensive metabolic 2000 panelon 07-14-2024 Albumin [Mass/Vol] 4.2 g/dL Normal 3.9-4.9 [facility] Comment on above: Order Comment: Speci men Type: BLOOD SPECIMENOrdering Facility: [facility] Address: [address] [place] [address] Performed By: #### 6 00-7 #### [facility] CLIA [id number] [address] ALP [Catalytic activity/Vol] 98 U/L Normal 38-113 [facility] Comment on above: Order Comment: Speci men Type: BLOOD SPECIMENOrdering Facility: [facility] Address: [address] [place] [address] Performed By: #### 6 00-7 #### [facility] CLIA [id number] [address] [place] [facility] ALT With P-5'-P [Catalytic activity/Vol] 24 U/L Normal 10-54 [facility] Comment on above: Order Comment: Speci men Type: BLOOD SPECIMENOrdering Facility: [facility] Address: [address] [place] [address] Performed By: #### 6 00-7 #### [facility] CLIA [id number] [address] [place] Anion gap [Moles/Vol] 12 mmol/L Normal 8-15 [facility] Comment on above: Order Comment: Speci men Type: BLOOD SPECIMENOrdering Facility: [facility] Address: [address] [place] [address] Performed By: #### 6 00-7 #### [facility] CLIA [id number] [address] [place] AST With P-5'-P [Catalytic activity/Vol] 22 U/L Normal 14-40 [facility] Comment on above: Order Comment: Speci men Type: BLOOD SPECIMENOrdering Facility: [facility] Address: [address] [place] [address] Performed By: #### 6 00-7 #### [facility] CLIA [id number] [address] [place] Bilirubin [Mass/Vol] 0.6 mg/dL Normal 0.2-1.3 [facility] Comment on above: Order Comment: Speci men Type: BLOOD SPECIMENOrdering Facility: [facility] Address: [address] [place] [address] Performed By: #### 6 00-7 #### [facility] CLIA [id number] [address] [place] Calcium [Mass/Vol] 9.2 mg/dL Normal 8.5-10.2 [facility] Comment on above: Order Comment: Speci men Type: BLOOD SPECIMENOrdering Facility: [facility] Address: [address] [place] [address] Performed By: #### 6 00-7 #### [facility] CLIA [id number] [address] [place] Chloride [Moles/Vol] 90 mmol/L Low 98-107 [facility] Comment on above: Order Comment: Speci men Type: BLOOD SPECIMENOrdering Facility: [facility] Address: [address] [place] [address] Performed By: #### 6 00-7 #### [facility] CLIA [id number] [address] [place] CO2 [Moles/Vol] 25 mmol/L Normal 22-30 [facility] Comment on above: Order Comment: Speci men Type: BLOOD SPECIMENOrdering Facility: [facility] Address: [address] [place] [address] Performed By: #### 6 00-7 #### [facility] CLIA [id number] [address] [place] [facility] Creatinine [Mass/Vol] 0.80 mg/dL Normal 0.73-1.22 [facility] Comment on above: Order Comment: Speci men Type: BLOOD SPECIMENOrdering Facility: [facility] Address: [address] [place] [address] Performed By: #### 6 00-7 #### [facility] CLIA [id number] [address] Creatinine and Glomerular filtration rate.predicted panel (S/P/Bld) 98 mL/min/1.73m??? Normal >=60 [facility] Comment on above: Order Comment: Speci men Type: BLOOD SPECIMENOrdering Facility: [facility] Address: [address] [place] [address] Result Comment: Lala mated Glomerular Filtration Rate [...] GFR. Performed By: #### 6 00-7 #### [facility] CLIA [id number] [address] OF [facility] Glucose [Mass/Vol] 80 mg/dL Normal 74-99 [facility] Comment on above: Order Comment: Speci men Type: BLOOD SPECIMENOrdering Facility: [facility] Address: [address] [place] [address] Result Comment: The [place] Diabetes Association (ADA) provides guidance for cutoff [...] Standards of Medical Care in Diabetes 2016, [place] [employer]. Diabetes Care. 2016.39(Suppl 1). Performed By: #### 6 00-7 #### [facility] CLIA [id number] [address] [place] [address] [place] Potassium [Moles/Vol] 4.5 mmol/L Normal 3.7-5.1 [facility] Comment on above: Order Comment: Speci men Type: BLOOD SPECIMENOrdering Facility: [facility] Address: [address] [place] [address] Performed By: #### 6 00-7 #### [facility] CLIA [id number] [address] [place] [address] [place] Protein [Mass/Vol] 7.1 g/dL Normal 6.3-8.0 [facility] Comment on above: Order Comment: Speci men Type: BLOOD SPECIMENOrdering Facility: [facility] Address: [address] [place] [address] Performed By: #### 6 00-7 #### [facility] CLIA [id number] [address] [place] [address] [place] Sodium [Moles/Vol] 127 mmol/L Low 136-144 [facility] Comment on above: Order Comment: Speci men Type: BLOOD SPECIMENOrdering Facility: [facility] Address: [address] [place] [address] Performed By: #### 6 00-7 #### [facility] CLIA [id number] [address] STATES OF [facility] Urea nitrogen [Mass/Vol] 4 mg/dL Low 9-24 [facility] Comment on above: Order Comment: Speci men Type: BLOOD SPECIMENOrdering Facility: [facility] Address: [address] [place] [address] Performed By: #### 6 00-7 #### [facility] CLIA [id number] [address] [place] ECG COMPLETEon 07-14-2024 ECG COMPLETE Ventricular Rate : 6 7 BPM Atrial Rate : 67 BPM P-R Interval : 146 ms QRS Duration : 122 ms Q-T Interval : 440 ms QTC Calculation(Bazett) : 464 ms Calculated P [place] : -5 degrees Calculated R [place] : 64 degrees Calculated T [place] : 30 degrees NORMAL SINUS RHYTHM RIGHT BUNDLE BRANCH BLOCK ABNORMAL ECG WHEN COMPARED WITH ECG OF 01-Dec-2023 09:50, PREMATURE SUPRAVENTRICULAR COMPLEXES ARE NO LONGER PRESENT Confirmed by MD AMARO ZENAB ([id number]) on 07/18/2024 3:09:52 PM NAME : ELIS BILLS PID : [id number] : 1960 Gender : Male Race : ORD : [id number] Procedure Date : Jul 14 2024 13:13:32 Edit Date : Jul 18 2024 15:09:55 Diagnosis: NORMAL SINUS RHYTHM RIGHT BUNDLE BRANCH BLOCK ABNORMAL ECG WHEN COMPARED WITH ECG OF 01-Dec-2023 09:50, PREMATURE SUPRAVENTRICULAR COMPLEXES ARE NO LONGER PRESENT Confirmed by MD AMARO ZENAB ([id number]) on 07/18/2024 3:09:52 PM Test Reason : [facility] Overread By : MD AMARO ZENAB Edited By : MD AMARO ZENAB Referred By : Candice Hoang by : HARVEY PURVIS [facility] HISTORY PHYSICALon HISTORY PHYSICAL HNO ID: [id number] Author: HARVEY PURVIS APRN.PROFESSOR OF MARKETING Service: ? Author Type: Nurse Practitioner Type: H&P Filed: 07/14/2024 14:48 Note Text: [facility] HISTORY AND PHYSICAL EXAMINATION SERVICE DATE: 07/14/2024 SERVICE TIME: 2:48 PM PRIMARY CARE PHYSICIAN: Pilar Lanza, DO Assessment Patient has the following medical [...] at this time: primary care/internal medicine (in [facility]). Planned Anesthetic: general The Following Tests/Procedures Have Been Initiated: Orders Placed This Encounter Confirm Blood Type Standing Status: Future Number of Occurrences: 1 Standing Expiration Date: 10/13/2024 Order Specific Question: Did Blood Bank direct you to place this order: Answer: No - Presurgical Workflow MYRON TURNER 160-9-4.8 mcg/actuation HFA aerosol inhaler Sig: INHALE [...] and tobacc (more content not included)... Normal [facility] PT panel Coag (PPP)on 2023 INR Coag (PPP) [Relative time] 1.0 {INR} Normal 0.9-1.3 [facility] Comment on above: Order Comment: Speci men Type: BLOOD SPECIMENOrdering Facility: [facility] Address: [address] [place] [address] Result Comment: Malini min K Antagonist (VKA) Therapeutic Range: INR 2 to 3 (Target INR of 2.5) Note: For patients treated with VKA drugs, such as warfarin, the [place] [employer]icians 2012 Guideline recommends [...] to 3.5 (target INR of 3). London GH, et al. Chest 2012, 141:7S-47S Deon RA, et al. [facility] 2017, 70: 252-289 Performed By: #### 3 4528-0, 13514-4 ####[facility] LABCLIA [id number] [place] [address] [place] PT Coag (PPP) [Time] 10.4 s Normal <13.1 [facility] Comment on above: Order Comment: Speci men Type: BLOOD SPECIMENOrdering Facility: [facility] Address: [address] [place] [address] Performed By: #### 3 4528-0, 67149-0 ####[facility] LABCLIA [id number] [place] [address] [place] STAPHYLOCOCCUS AUREUS AND MR SA SCREEN, PCR, NASALon 07-14-2024 S. aureus and MRSA panel YADIRA+probe (Nose) Not detected Normal Not Detected [facility] Comment on above: Order Comment: Speci men Type: SWABOrdering Facility: [facility] Address: [address] [place] [address] Performed By: #### S APCR ####[facility]ATORYCLIA [id number] [address] [place] TYPE AND SCREEN,30 DAYon ABO O Normal [facility] Comment on above: Order Comment: Speci men Type: BLOOD SPECIMEN [facility] Address: [address] [place] [address] Performed By: #### T SCR30 #### [facility] CLIA [id number] [address] Rh Nom (Bld) Positive Normal [facility] Comment on above: Order Comment: Speci men Type: BLOOD SPECIMEN [facility] Address: [address] [place] [address] Performed By: #### T SCR30 #### [facility] CLIA [id number] [address] Urinalysis complete panel (U )on 07-14-2024 Bilirubin Ql (U) Negative Normal Negative [facility] Comment on above: Order Comment: Speci men Type: URINE SPECIMENOrdering Facility: [facility] Address: [address] [place] [address] Performed By: #### 2 4356-8 ####[facility]ORATORYCLIA [id number] [address] Clarity (Unsp spec) Clear Normal Clear [facility] Comment on above: Order Comment: Speci men Type: URINE SPECIMENOrdering Facility: [facility] Address: [address] [place] [address] Performed By: #### 2 4356-8 ####[facility]ATORYCLIA [id number] [address] Color (U) Colorless Normal yellow [facility] Comment on above: Order Comment: Speci men Type: URINE SPECIMENOrdering Facility: [facility] Address: [address] [place] [address] Performed By: #### 2 4356-8 ####[facility]ATORYCLIA [id number] [address] Glucose Test strip (U) [Mass/Vol] Negative Normal Trace, Negative [facility] Comment on above: Order Comment: Speci men Type: URINE SPECIMENOrdering Facility: [facility] Address: [address] [place] [address] Performed By: #### 2 4356-8 ####[facility]ATORYCLIA [id number] [place] [address] [place] Hemoglobin Ql (U) Negative Normal Negative, Trace [facility] Comment on above: Order Comment: Speci men Type: URINE SPECIMENOrdering Facility: [facility] Address: [address] [place] [address] Performed By: #### 2 4356-8 ####[facility] LABORATORYCLIA [id number] [place] [address] [place] Ketones Ql (U) Negative Normal Negative, Trace [facility] Comment on above: Order Comment: Speci men Type: URINE SPECIMENOrdering Facility: [facility] Address: [address] [place] [address] Performed By: #### 2 4356-8 ####[facility] LABORATORYCLIA [id number] [place] [address] [place] Leukocyte esterase Test strip Ql (U) Negative Normal Negative, 25 Seun/uL [facility] Comment on above: Order Comment: Speci men Type: URINE SPECIMENOrdering Facility: [facility] Address: [address] [place] [address] Performed By: #### 2 4356-8 ####[facility]ATORYCLIA [id number] [place] [address] [place] Nitrite Ql (U) Negative Normal Negative [facility] Comment on above: Order Comment: Speci men Type: URINE SPECIMENOrdering Facility: [facility] Address: [address] [place] [address] Performed By: #### 2 4356-8 ####[facility]ATORYCLIA [id number] [place] [address] [place] pH (U) 6.5 [pH] Normal 5.0-8.0 [facility] Comment on above: Order Comment: Speci men Type: URINE SPECIMENOrdering Facility: [facility] Address: [address] [place] [address] Performed By: #### 2 4356-8 ####[facility] LABORATORYCLIA [id number] [address] Protein (U) [Mass/Vol] Negative Normal Trace , Negative [facility] Comment on above: Order Comment: Speci men Type: URINE SPECIMENOrdering Facility: [facility] Address: [address] [place] [address] Performed By: #### 2 4356-8 ####[facility] LABORATORYCLIA [id number] [address] RBC LM.HPF (Urine sed) [#/Area] 0-3 /HPF Normal 0-3 /HPF [facility] Comment on above: Order Comment: Speci men Type: URINE SPECIMENOrdering Facility: [facility] Address: [address] [place] [address] Performed By: #### 2 4356-8 ####[facility] LABORATORYCLIA [id number] [address] Specific gravity (U) [Rel density] 1.004 Low 1.005-1.030 [facility] Comment on above: Order Comment: Speci men Type: URINE SPECIMENOrdering Facility: [facility] Address: [address] [place] [address] Performed By: #### 2 4356-8 ####[facility] LABORATORYCLIA [id number] [address] Urobilinogen Ql (U) Normal Normal Normal [facility] Comment on above: Order Comment: Speci men Type: URINE SPECIMENOrdering Facility: [facility] Address: [address] [place] [address] Performed By: #### 2 4356-8 ####[facility] LABORATORYCLIA [id number] [address] WBC LM.HPF (Urine sed) [#/Area] 0-5 /HPF Normal 0-5 /HPF [facility] Comment on above: Order Comment: Speci men Type: URINE SPECIMENOrdering Facility: [facility] Address: [address] [place], [place] [address] Performed By: #### 2 4356-8 ####[facility] LABORATORYCLIA [id number] [place] [address] [facility] XR CHEST 2V FRONTAL/LATon XR CHEST 2V FRONTAL/LAT * * *Final Repor t* * * DATE OF EXAM: Jul 14 [...] tissues: Unremarkable. IMPRESSION: No acute radiographic abnormality. Litigation Attorney: YAIR Transcribe Date/Time: Jul 18 2024 4:45P Dictated by : SUNITA SMITH MD This examination was interpreted and the report reviewed and electronically signed by: SUNITA SMITH MD on Jul 18 2024 4:46PM EST [id number] N Normal [facility] aPTT PPPon 07-14-2024 aPTT Coag (PPP) [Time] 26.5 s Normal 23.0-32.[address] [facility] Comment on above: Order Comment: Speci men Type: BLOOD SPECIMENOrdering Facility: [facility] Address: [address] [place] [address] Performed By: #### 3 4528-0, 37124-0 ####[facility] BATH LABCLIA [id number] [place] [address] [facility] Donna 06-21-2024 [facility] (NE[facility]) ELIS BILLS ([id number]) 1960 Date Time Provider Department 06/21/24 LOIS HOANG [facility] During your visit today, we recorded [...] Unknown Date Reviewed: 06/05/2024 Reviewed by: Helen Sanchez MA - Fully Assessed Reason for Visit: [...] Encounter Status:Closed by STEPHANE BAZAN on 06/21/24 [facility] Donna 06-08-2024 [facility] Tele[facility] ([facility]) ELIS BILLS ([id number]) 1960 M Date Time Provider Department 06/08/[address] [facility] During your visit today, we recorded the following information about you: Dalia Merritt 06/08/2024 12:19 PM Signed Nebulizer orders [facility] Allergies As of Date: 06/08/2024 Noted Allergy Reaction PENICILLINS 08/27/2014 16 - Unknown Date Reviewed: 06/05/2024 Reviewed by: Helen Sanchez MA - Fully Assessed Reason for Visit: [...] 40 [E66.01] 12/01/2023 Encounter Status:Closed by DALIA MERRITT on 06/08/[address] [facility] CT CHEST WO IVCONon 06-08-20 CT CHEST WO IVCON * * *Final Report* * * DATE OF EXAM: Jun 08 2024 8:30AM [facility] 0541 - CT CHEST WO IVCON / [...] fellow represents my interpretation of the study. Litigation Attorney: PSCRuben Transcribe Date/Time: Jun 08 2024 1:33P Dictated by : TAMEKA PIKE, This examination was interpreted and the report reviewed and electronically signed by: JAYMIE VALLEJO MD on Jun 08 2024 2:39PM EST [id number] N Normal [facility] CT Chest WO contraston 06-08 IMPRESSION: Multiple tiny 2-3 millimeter pulmonary nodules are present, overall decreased in conspicuity and size from the prior, likely resolving infectious/inflammato ry process. Recommend continued attention on follow-up in 6-12 months. I agree that this report by the resident or fellow represents my interpretation of the study. Litigation Attorney: [facility]ITAL[facility] Transcribe Date/Time: Jun 08 2024 1:33P Dictated by : TAMEKA PIKE, This examination was interpreted and the report reviewed and electronically signed by: JAYMIE VALLEJO MD on Jun 08 2024 2:39PM EST DIVISION OF RADIOLOGY * * *Final Report* * * DATE OF EXAM: Jun 08 2024 8:30AM [facility] 0541 - CT CHEST WO IVCON / [...] DATE OF EXAM: Jun 08 2024 8:30AM [facility] 0541 - CT CHEST WO IVCON / [...] fellow represents my interpretation of the study. Litigation Attorney: YAIR Transcribe Date/Time: Jun 08 2024 1:33P Dictated by : TAMEKA PIKE, DO This examination was interpreted and the report reviewed and electronically signed by: JAYMIE VALLEJO MD on Jun 08 2024 2:39PM EST [facility] Radiology Study observation (narrative[facility] WO contrastOrdered By: Ccf Provider on 06-08-2024 [facility] CNOVon 06-05-2024 CNOV Office Visit (NEAGCLM) ELIS BILLS ([id number]) 1960 M Date Time Provider Department 06/05/24 9:15 AM LOIS HOANG During your visit today, we recorded the following information about you: Pulse Respiration Blood pressure Weight 72/minute 20/minute 161/84 129.5 kg Lois Hoang MD 06/05/2024 10:19 AM Signed NEUROSURGERY FOLLOW UP OFFICE NOTE Lois Hoang MD [facility] Date of visit: June 05, 2024 Patient Name: Mr.Donald Tim Bills Date of : 1960 Current Age: [age] year old Sex: male MRN/E# [id number] Last Office Visit: 04/06/2024 Chief Complaint: Patient presents with: Established Patient Past Medical/Surgical History: Elis Bills is a 63 year old male who is referred by Bertha Kaur APRN, CNP with pain management for neurosurgical [...] Eyes: Neg (more content not included)... Normal [facility] XR LUMBAR 4V AP/LAT/ FLEX/EX Ton 06-05-2024 [...] anterolisthesis at L5-S1. Degenerative changes as described. Litigation Attorney: PSCB Transcribe Date/Time: Jun 08 2024 9:34A Dictated by : GOLD LUTHER MD This examination was interpreted and the report reviewed and electronically signed by: GOLD LUTHER MD on Jun 08 2024 9:42AM EST [id number] N Normal [facility] Donna 05-31-2024 [facility] Telephone ([facility]) ELIS BILLS ([id number]) 1960 M Date Time Provider Department 05/31/24 SHELTON FLORES During your visit today, we recorded the following information about you: Dalia Merritt 05/31/2024 12:24 PM Signed Nebulizer order signed AND faxed back to Ronal Zaragoza. Dalia Merritt Allergies As of Date: 05/31/2024 Noted Allergy Reaction PENICILLINS 08/27/2014 16 - Unknown Date Reviewed: 05/10/2024 Reviewed by: Kalee Calvillo LPN - Fully Assessed Reason for Visit: [...] 40 [E66.01] 12/01/2023 Encounter Status:Closed by DALIA MERRITT on 05/31/24 [facility] Donna 04-27-2024 CNPN Telephone (AGSPHWG) ELIS BILLS ([id number]) 1960 Date Time Provider Department 04/27/24 EVERTON SANCHEZ AGSPHWG During your visit today, we recorded the following information about you: Celetse Tong 04/27/2024 3:57 PM Signed Called patient [...] sides done. Please clarify . Bertha Spring APRN.PROFESSOR OF MARKETING 04/27/2024 4:04 PM Signed I spoke to Vivian Fried after my discussion with the pt and she is going to attempt to get him scheduled in that time slot, please defer to her. Thanks. Vivian Fried 04/28/2024 9:01 AM Signed Allergies As of Date: 04/27/2024 Noted Allergy Reaction PENICILLINS 08/27/2014 16 - Unknown Date Reviewed: 04/27/2024 Reviewed by: Bertha Kaur APRN.NABOR - Fully Assessed Reason for Visit: Appointment [...] Encounter Status:Closed by VIVIAN FRIED on 04/28/24 [facility] CNOVon 04-06-2024 CNOV Office Visit (NEAGCLM) ELIS BILLS ([id number]) 1960 M Date Time Provider Department 04/06/24 9:30 AM LOIS HOANG NEAGCLM During your visit today, we recorded the following information about you: Pulse Respiration Blood pressure Weight 74/minute 18/minute 154/89 128.5 kg Height 1.702 m Lois Hoang MD 04/06/2024 10:06 AM Signed NEUROSURGERY CONSULT NOTE Lois Hoang MD [facility] Date of visit: April 06, 2024 Patient Name: Mr.Donald Tim Bills Date of : 1960 Current Age: [age] year old Sex: male MRN/E# [id number] Last Office Visit: Visit date not found Chief Complaint: Patient presents with: New Patient Past Medical/Surgical History: Elis Bills is a 63 year old male who is referred by Bertha Kaur APRN, CNP with pain management for neurosurgical [...] (chronic obstructive pulmonary disease) (HCC) Hypercholesteremia Stroke ([facility]) No past surgical history on file. FAMILY [...] SpO2 9 (more content not included)... Normal [facility] Donna 03-31-2024 [facility] Telephone (AGSPINE1) ELIS BILLS ([id number]) 1960 M Date Time Provider Department 03/31/24 DHIRAJ HERR [...] 9. Does this procedure require a company driver? Yes If yes, has patient been notified that a company driver is needed and must be present [...] Unknown Date Reviewed: 03/30/2024 Reviewed by: Bertha Kaur APRN.PROFESSOR OF MARKETING - Fully Assessed Reason for Visit: injection [...] Encounter Status:Closed by OZIEL RUBALCAVA on 03/31/24 [facility] Donna 03-30-2024 [facility] Telephone (SPAGWO) ELIS BILLS ([id number]) 1960 M Date Time Provider Department 03/30/24 DHIRAJ HERR SPAGWO During your visit today, we recorded the following information about you: Oziel Rubalcava 03/31/2024 8:20 AM Addendum B/L MBNB L3-L4, L4-L5, w fluoro Called pt to schedule procedure, LVM Oziel Rubalcava Allergies As of Date: 03/30/2024 Noted Allergy Reaction PENICILLINS 08/27/2014 16 - Unknown Date Reviewed: 03/30/2024 Reviewed by: Bertha Kaur APRN.[facility] - Fully Assessed Reason for Visit: Appointment [...] Encounter Status:Closed by OZIEL RUBALCAVA on 03/30/24 [facility] Donna 03-17-2024 [facility] Telephone (AGSPHWG) ELIS BILLS ([id number]) 1960 M Date Time Provider Department 03/17/24 EVERTON SANCHEZ AGSPHWG During your visit today, we recorded the following information about you: Stephan Calhoun MA 03/17/2024 10:29 AM Signed Spoke with patient following up from procedure. Patient states they are doing well, no questions or concerns at this time. Stephan Calhoun CMA Allergies As of Date: 03/17/2024 Noted Allergy Reaction PENICILLINS 08/27/2014 16 - Unknown Date Reviewed: 03/16/2024 Reviewed by: Everton Sanchez MD - Fully Assessed Reason for Visit: [...] 40 [E66.01] 12/01/2023 Encounter Status:Closed by STEPHAN CALHOUN on 03/17/24 [facility] 03-16-2024 CNPN Telephone (RASHMIGWO) ELIS BILLS ([id number]) 1960 M Date Time Provider Department 03/16/24 BERTHA KAUR During your visit today, we recorded the following information about you: Bertha Kaur APRN.CNP 03/16/2024 8:14 AM Signed Could you proof read this please. Thanks. Allergies As of Date: 03/16/2024 Noted Allergy Reaction PENICILLINS 08/27/2014 16 - Unknown Date Reviewed: 02/24/2024 Reviewed by: Bertha Kaur APRN.PROFESSOR OF MARKETING - Fully Assessed Reason for Visit: Orders [...] 12/01/2023 Letter Text Encounter Status:Closed by BERTHA KAUR on 03/16/24 [facility] C[facility] Tele[facility] (AGSPINE3) ELIS BILLS ([id number]) 1960 Date Time Provider Department 03/15/24 EVERTON SANCHEZ AGSPINE3 During your visit today, we recorded the following information about you: Chanda Mckee 03/15/2024 8:12 AM Signed ----- Message from Johnny Owusu sent at 03/14/2024 4:14 PM EDT ----- Regarding: Spine AND Pain / Everton Sanchez) / Procedure / Injection Patient: Elis Dumont Sanju Date of : 1960 Primary Care Provider: Pilar Lanza DO Patient has been identified by name and Date of (Y/N): y Patient: Elis J Sanju Date of : 1960 Provider for this encounter: Pilar Lanza DO Reason for the call/escalation: Pt's called in to return call from office regarding procedure that was originally scheduled with Dr Everton Sanchez on 03/16. Appt was cancelled by office because procedure was denied by insurance, but pt stated that they would be self-paying the procedure, and will need to have it rescheduled for 03/16. Pt requested call back from office for assistance with this appt. Was Patient Referred to [facility]/Seek Emergency Treatment (Y/N): n Did Patient Agree (Y/N): n Was An Attempt Made To Transfer The Patient To The Office (Y/N): n Were You Able To Reach Someone At The Office (Y/N): n If Yes - Patient Was Transferred To (Caregivers Name): n If No - Which [facility] Leadership Cpa Tax Did You Speak With Regarding This Patient: n Was an appointment scheduled (Y/N): n/a Reason patient was requesting visit (RFV/signs and symptoms/diagnosis) : procedure Person calling if other than patient: Spouse, Mehreen Bills Return call to if other than patient: y Best contact number: [phone] Thank you, Johnny Hdez March 14, 2024 [...] Unknown Date Reviewed: 02/24/2024 Reviewed by: Bertha Kaur APRN.PROFESSOR OF MARKETING - Fully Assessed Reason for Visit: Patient Question [1107] Prescriptions as of 03/15/2024 - cyclobenzaprine (FLEXERIL) [...] >= 40 [E66.01] 12/01/2023 Encounter Status:Closed by JOVANY MCKEEY on 03/15/24 [facility] Tele[facility] (AGSPINE3) ELIS BILLS ([id number]) 1960 Date Time Provider Department 03/13/24 YASHIRA GONSALES AGSPINE3 During your visit today, we recorded the following information about you: Chanda Mckee 03/13/2024 2:55 PM Signed Patient Last Name [...] date 03/08/2024 Insurance Case Information Insurance Name [facility] Patient's Insurance Case# [id number] Ordering Provider Bertha Kaur Approved Services N/A Denied Services 93714 - NJX DX/THER SBST INTRLMNR LMBR/SAC W/IMG [...] complete the Peer to Peer? Dr, PA, [employer] SUPERVISOR, LN Additional Peer to Peer Instructions You can call for the peer to peer at the date and time of your convenience Appeal Instructions Appeal Address [address] [address], [facility], [address] Appeal Fax# No fax# available Required Form(s) Yes, Please see attached or can be found at [email or web address] ([email or web address]). Additional Appeal Instructions Send it attention to: Appeals department. Include: coversheet with patient's and case information, a formal appeal letter and attach any pertinent supporting clinical documentation. Also, insurance requires a formal appeal form filled out if you would like to submit a written appeal. Facility Information Location [facility] [id number] Tax ID# [id number] Vivian Fried 03/14/2024 8:34 AM Signed Please advise on how you would like to proceed. Vivian Franco 03/14/2024 3:59 PM Signed I have attempted to contact this patient by phone, Left brief message on cell [employer] informing this patient of this denial and [...] Unknown Date Reviewed: 02/24/2024 Reviewed by: Bertha Kaur APRN.PROFESSOR OF MARKETING - Fully Assessed Reason for Visit: Insurance [...] thiamine (VITAMI (more content not included)... Normal [facility] 03-01-2024 CNCO Letter Text [facility] 02-25-[address] [facility] 02-25-2024 CNPN Telephone (AGSPINE3) ELIS BILLS ([id number]) 1960 M Date Time Provider Department 02/25/24 EVERTON SANCHEZ AGSPINE3 During your visit today, we recorded the following information about you: Diane Kaye 02/25/2024 11:09 AM Signed The Anticoag Management letter has been sent to the PCP, Pilar Lanza DO via facsimile. [phone] Adi Meyer PSS 02/29/2024 3:44 PM Signed Medical consent to stop taking Plavix for [address] Pilar Lanza on 02/28/2024. The consent form was received on 02/29/2024 and is scanned into the chart. GOOD UNTIL 08/30/20[address]i Mascorro Amasa [address] Dr. Britton Burgos [facility] Spine and Pain P: [id number] / F: [phone] / [email or web address] __ Diane Kaye 03/01/2024 11:05 AM Signed Called and LVM to schedule injection. Vivian Ramachandran 03/01/2024 11:55 AM Signed Patient has been scheduled with dr. Sanchez on 03/16/24. Vivian Fried Allergies As of Date: 02/25/2024 Noted Allergy Reaction PENICILLINS 08/27/2014 16 - Unknown Date Reviewed: 02/24/2024 Reviewed by: Bertha Kaur APRN.PROFESSOR OF MARKETING - Fully Assessed Reason for Visit: anticoagulation [...] 40 [E66.01] 12/01/2023 Encounter Status:Closed by DIANE KAYE on 02/25/24 [facility] Telephone (AGSPHWG) ELIS BILLS ([id number]) 1960 M Date Time Provider Department 02/25/24 BERTHA KAUR AGSPHWG During your visit today, we recorded the following information about you: Rose Leal 02/25/2024 8:17 AM Signed Outbound Call to patient to schedule Injection - Epidural Steroid Injection - Interlaminar Approach (ILESI) under fluoroscopic guidance NONE at L4-5 (Currently Taking: Plavix needs 7 day hold) - Reached [facility] [phone] (cell/home) JASS Block Julie 03/03/2024 7:44 AM Signed Patient is scheduled for procedure and follow up JASS Block Allergies As of Date: 02/25/2024 Noted Allergy Reaction PENICILLINS 08/27/2014 16 - Unknown Date Reviewed: 02/24/2024 Reviewed by: Bertha Kaur APRN.[facility] - Fully Assessed Reason for Visit: Appointment [...] Encounter Status:Closed by ROSE LEAL on 02/25/24 [facility] CNPN Telephone (AGSPINE3) ELIS BILLS ([id number]) 1960 Date Time Provider Department 02/25/24 EVERTON SANCHEZ AGSPINE3 During your visit today, we recorded the following information about you: Diane Kaye 02/25/2024 11:08 AM Signed Procedure(s) being scheduled: [...] 9. Does this procedure require a company driver? Yes If yes, has patient been notified that a company driver is needed and must be present [...] 2nd dose of the COVID vaccine.) Diane Kaye Allergies As of Date: 02/25/2024 Noted Allergy Reaction PENICILLINS 08/27/2014 16 - Unknown Date Reviewed: 02/24/2024 Reviewed by: Bertha Kaur APRN.PROFESSOR OF MARKETING - Fully Assessed Reason for Visit: Injections [...] 40 [E66.01] 12/01/2023 Encounter Status:Closed by DIANE KAYE on 02/25/24 [facility] Donna 01-17-2024 [facility] Telephone (PUMBHT) ELIS BILLS ([id number]) 1960 Date Time Provider Department 01/17/24 [facility] FL[facility] During your visit today, we recorded the following information about you: Lindsey Delgado RN 01/17/2024 10:03 AM Signed TIMO: 11/11/2023 Future OV: 02/10/2024 Call transferred to Witmer RN from [address] Mehreen, patient's called. Patient name and [...] AM Signed Patient called message given from copy of message sent to patient My Chart per request Allergies As of Date: 01/17/2024 Noted Allergy Reaction PENICILLINS 08/27/2014 16 - Unknown Date Reviewed: 12/21/2023 Reviewed by: Yashira Gonsales APRN.PROFESSOR OF MARKETING - Fully Assessed Reason for Visit: Illness [5603] Cmt: Witmer RN covering urgent pulm sypmtom calls Order(s):predniSONE [...] of breath (more content not included)... Normal [facility] Donna 01-03-2024 JELENA Telephone ([facility]) ELIS BLILS ([id number]) 1960 M Date Time Provider Department 01/03/[address] [facility] During your visit today, we recorded the [...] was unable to speak with patient. Sent Oink message regarding message below. Alen Mayorga MD15 [...] Date Reviewed: 12/21/2023 Reviewed by: Yashira Gonsales APRN.PROFESSOR OF MARKETING - Fully Assessed Reason for Visit: Results [...] Encounter Status:Closed by ALEN MAYORGA on 01/03/[address] [facility] [address] CHEST WO IVCONon 12-29-19 CT CHEST WO IVCON * * *Final Report* * * DATE OF EXAM: Dec 29 2023 11:14AM LD 0541 - CT CHEST WO IVCON / [...] obtained in 12 months --END OF FINDING-- Litigation Attorney: YAIR Transcribe Date/Time: Jan 03 2024 2:32P Dictated by : FRANCES MILIAN MD This examination was interpreted and the report reviewed and electronically signed by: FRANCES MILIAN MD on Jan 03 2024 2:47PM EST [id number] ACTIONABLE Invalid Interpretation Code [facility] ECHOon 12-29-2023 CONCLUSIONS: - Technically difficult exam [...] [facility] Echocardiography Report: Transthoracic Echo [facility] Date of service: 12/29/2023 10:25:10 AM Ordering physician: SHELTON FLORES Indication: Shortness of Breath Technologist: Hannah Elizondo RD Interpreting physician: Al Dexter MD PATIENT: Name: [...] aorta 4.0 cm. [facility] Echocardiography Echocardiography Report: Transthoracic Echo [facility] Date of service: 12/29/2023 10:25:10 AM Ordering physician: SHELTON FLORES Indication: Shortness of Breath Technologist: Hannah Elizondo [facility] Interpreting physician: Al Dexter MD PATIENT: Name: [...] * * Final * * * CC [employer] Image : [id number] Normal [facility] 12-17-2023 [facility] Telephone (AGSPHWG) ELIS BILLS ([id number]) 1960 M Date Time Provider Department 12/17/23 [...] Encounter Status:Closed by GRETA GUILLEN on 12/17/23 [facility] Donna 12-14-2023 [facility] Telephone (AGSPINE3) ELIS BILLS ([id number]) 1960 Date Time Provider Department 12/14/23 BERTHA KAUR AGSPINE3 During your visit today, we recorded the following information about you: Chanda Mckee 12/14/2023 4:10 PM Signed Patient Last Name [...] Information Insurance Name MARANDA Patient's Insurance Case# [id number] Ordering Provider Bertha Kaur Approved Services N/A Denied Services 31045 - NJX DX/THER AGT PVRT FACET JT LMBR/SAC 1 LEVEL 99749 - NJX DX/THER AGT PVRT FACET JT LMBR/SAC 2ND LEVEL Alternative Recommendation N/A *Service which can be approved in place of denied service. Clinical Documentation Provided Berger [facility] 11/25/2023, 10/29/2023 FOLLOW UP APPOITNMENT WHEN PROVIDED SPECIFIED 12/02/2023 XR CHEST 1V FRONTAL 12/01/2023 MRI LUMBAR SPINE WO IVCON 11/19/2023 Peer to Peer Instructions Peer to Peer , options: 1-2 Does Peer to Peer need to be scheduled? Yes Who can complete the Peer to Peer? , PA, [employer]PERVISOR, LN Additional Peer to Peer Instructions You can call for the peer to peer at the date and time of your convenience Appeal Instructions Appeal Address [address] [address], [facility], [address] Appeal Fax# No fax# available Required Form(s) Yes, Please see attached or can be found at [email or web address] ([email or web address]). Additional Appeal Instructions Send it attention to: Appeals department. Include: coversheet with patient's and case information, a formal appeal letter and attach any pertinent supporting clinical documentation. Also, insurance requires a formal appeal form filled out if you would like to submit a written appeal. Facility Information Location [facility] [place] [id number] Tax ID# [id number] Vivian Fried/29/2024 12:08 PM Signed Please advise on how [...] the relief that we are looking for. Vivian Fried Bertha Kaur APRN.CNP 12/24/2023 3:44 PM Signed I created a [...] available, please see details below: Appeal fax#: [phone] Appeal mailing address: [address] [address], [facility], [address] Time frame limit: 60 calendar days from 01/04/2024 Attention to: Appeals dep (more content not included)... Normal [facility] CBC panel Auto (Bld)on 12-01 Erythrocyte distribution width (RBC) [Ratio] 14.2 % Normal 11.5-15.0 [facility] Comment on above: Order Comment: Speci men Type: BLOOD SPECIMENOrdering Facility: [facility] Address: [address] [place] [address] Performed By: #### 5 8625-2 ####[facility] LABCLIA [id number] [facility] [address] [facility] Hematocrit (Bld) [Volume fraction] 41.8 % Normal 39.0-51.0 [facility] Comment on above: Order Comment: Speci men Type: BLOOD SPECIMENOrdering Facility: [facility] Address: [address] [place] [address] Performed By: #### 5 8410-2 ####[facility] LABCLIA [id number] [facility] [address] [facility] Hemoglobin (Bld) [Mass/Vol] 14.0 g/dL Normal 13.0-17.0 [facility] Comment on above: Order Comment: Speci men Type: BLOOD SPECIMENOrdering Facility: [facility] Address: [address] [place] [address] Performed By: #### 5 8410-2 ####[facility] LABCLIA [id number] [place] [address] [facility] MCH (RBC) [Entitic mass] 29.4 pg Normal 26.0-34.0 [facility] Comment on above: Order Comment: Speci men Type: BLOOD SPECIMENOrdering Facility: [facility] Address: [address] [place] [address] Performed By: #### 5 8410-2 ####[facility] LABCLIA [id number] [place] [address] [place] MCHC (RBC) [Mass/Vol] 33.5 g/dL Normal 30.5-36.0 [facility] Comment on above: Order Comment: Speci men Type: BLOOD SPECIMENOrdering Facility: [facility] Address: [address] [place] [address] Performed By: #### 5 8410-2 ####[facility] LABCLIA [id number] [place] [address] [facility] [place] MCV (RBC) [Entitic vol] 87.8 fL Normal 80.0-100.0 [facility] Comment on above: Order Comment: Speci men Type: BLOOD SPECIMENOrdering Facility: [facility] Address: [address] [place] [address] Performed By: #### 5 8410-2 ####[facility] LABCLIA [id number] [facility] [address] [place] Platelet mean volume (Bld) [Entitic vol] 9.1 fL Normal 9.0-12.7 [facility] Comment on above: Order Comment: Speci men Type: BLOOD SPECIMENOrdering Facility: [facility] Address: [address] [place] [address] Performed By: #### 5 8410-2 ####[facility] LABCLIA [id number] [facility] [address] [place] Platelets (Bld) [#/Vol] 298 10*3/uL Normal 150-400 [facility] Comment on above: Order Comment: Speci men Type: BLOOD SPECIMENOrdering Facility: [facility] Address: [address] [place] [address] Performed By: #### 5 8410-2 ####[facility] LABCLIA [id number] [facility] [address] [place] RBC (Bld) [#/Vol] 4.76 10*6/uL Normal 4.20-6.00 [facility] Comment on above: Order Comment: Speci men Type: BLOOD SPECIMENOrdering Facility: [facility] Address: [address] [place] [address] Performed By: #### 5 8410-2 ####[facility] LABCLIA [id number] [facility] [address] [place] WBC (Bld) [#/Vol] 7.31 10*3/uL Normal 3.70-11.00 [facility] Comment on above: Order Comment: Speci men Type: BLOOD SPECIMENOrdering Facility: [facility] Address: [address] [place] [address] Performed By: #### 5 8410-2 ####[facility] NANDA [id number] [place] [address] [facility] CNDSon 12-02-2023 CN HNO ID: [id number] Author: ALBERTINA DAVILA APRN.[facility] Service: Hospital Medicine Author Type: Nurse Practitioner Type: Discharge Summary Filed: 12/02/2023 11:00 Note Text: Attestation signed by Ji Fonseca MD at 12/10/2023 9:28 PM [facility] [place] STAFF PHYSICIAN NOTE [...] exacerbation (HCC) (POA: Yes) Ji Fonseca MD, [facility] Staff,Dept of Hospital Medicine December 10, [...] 12 hours. 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 [...] agreeable to observation overnight, but only at [facility]. Patient was admitted for further management. [...] were finalized. [facility] and report the results to his PCP. Extreme education provided to patient on ETOH cessation and smoking cessation. Patient instructed on Fluid restriction of 1800mL daily (more content not included)... Normal [facility] Comprehensive metabolic 2000 panelon 12-02-2023 Albumin [Mass/Vol] 4.4 g/dL Normal 3.9-4.9 [facility] Comment on above: Order Comment: Wilbert torres Type: BLOOD SPECIMENOrdering Facility: [facility] Address: [address] [place] [address] Performed By: #### 6 00-7 #### [facility] CLIA [id number] [address] ALP [Catalytic activity/Vol] 99 U/L Normal 38-113 [facility] Comment on above: Order Comment: Wilbert torres Type: BLOOD SPECIMENOrdering Facility: [facility] Address: [address] [place] [address] Performed By: #### 6 00-7 #### [facility] CLIA [id number] [address] STATES OF [facility] ALT With P-5'-P [Catalytic activity/Vol] 22 U/L Normal 10-54 [facility] Comment on above: Order Comment: Speci men Type: BLOOD SPECIMENOrdering Facility: [facility] Address: [address] [place] [address] Performed By: #### 6 00-7 #### [facility] CLIA [id number] [address] OF [facility] Anion gap [Moles/Vol] 12 mmol/L Normal 9-18 [facility] Comment on above: Order Comment: Speci men Type: BLOOD SPECIMENOrdering Facility: [facility] Address: [address] [place] [address] Performed By: #### 6 -7 #### [facility] CLIA [id number] [address] AST With P-5'-P [Catalytic activity/Vol] 19 U/L Normal 14-40 [facility] Comment on above: Order Comment: Speci men Type: BLOOD SPECIMENOrdering Facility: [facility] Address: [address] [place] [address] Performed By: #### 6 -7 #### [facility] CLIA [id number] [address] OF [facility] Bilirubin [Mass/Vol] 0.5 mg/dL Normal 0.2-1.3 [facility] Comment on above: Order Comment: Speci men Type: BLOOD SPECIMENOrdering Facility: [facility] Address: [address] [place] [address] Performed By: #### 6 -7 #### [facility] CLIA [id number] [address] [place] Calcium [Mass/Vol] 9.7 mg/dL Normal 8.5-10.2 [facility] Comment on above: Order Comment: Speci men Type: BLOOD SPECIMENOrdering Facility: [facility] Address: [address] [place] [address] Performed By: #### 6 00-7 #### [facility] CLIA [id number] [address] [place] Chloride [Moles/Vol] 92 mmol/L Low 97-105 [facility] Comment on above: Order Comment: Speci men Type: BLOOD SPECIMENOrdering Facility: [facility] Address: [address] [place] [address] Performed By: #### 6 00-7 #### [facility] CLIA [id number] [address] CO2 [Moles/Vol] 25 mmol/L Normal 22-30 [facility] Comment on above: Order Comment: Speci men Type: BLOOD SPECIMENOrdering Facility: [facility] Address: [address] [place] [address] Performed By: #### 6 00-7 #### [facility] CLIA [id number] [address] Creatinine [Mass/Vol] 0.90 mg/dL Normal 0.73-1.22 [facility] Comment on above: Order Comment: Speci men Type: BLOOD SPECIMENOrdering Facility: [facility] Address: [address] [place] [address] Performed By: #### 6 00-7 #### [facility] CLIA [id number] [address] [place] [address] Creatinine and Glomerular filtration rate.predicted panel (S/P/Bld) 95 mL/min/1.73m??? Normal >=60 [facility] Comment on above: Order Comment: Speci men Type: BLOOD SPECIMENOrdering Facility: [facility] Address: [address] [place] [address] Result Comment: Lala mated Glomerular Filtration Rate [...] GFR. Performed By: #### 6 00-7 #### [facility] CLIA [id number] [address] [place] [address] [place] Glucose [Mass/Vol] 122 mg/dL High 74-99 [facility] Comment on above: Order Comment: Wilbert brian Type: BLOOD SPECIMENOrdering Facility: [facility] Address: [address] [place] [address] Result Comment: The [place] Diabetes Association (ADA) provides guidance for cutoff [...] Standards of Medical Care in Diabetes 2016, [place] Diabetes Association. Diabetes Care. 2016.39(Suppl 1). Performed By: #### 6 00-7 #### [facility] CLIA [id number] [address] [place] [address] [place] Potassium [Moles/Vol] 5.0 mmol/L Normal 3.7-5.1 [facility] Comment on above: Order Comment: Wilbert brian Type: BLOOD SPECIMENOrdering Facility: [facility] Address: [address] [place] [address] Performed By: #### 6 00-7 #### [facility] CLIA [id number] [address] [place] [address] [place] Protein [Mass/Vol] 7.7 g/dL Normal 6.3-8.0 [facility] Comment on above: Order Comment: Wilbert brian Type: BLOOD SPECIMENOrdering Facility: [facility] Address: [address] [place] [address] Performed By: #### 6 00-7 #### [facility] CLIA [id number] [address] [place] [address] [place] Sodium [Moles/Vol] 129 mmol/L Low 136-144 [facility] Comment on above: Order Comment: Speci men Type: BLOOD SPECIMENOrdering Facility: [facility] Address: [address] [place] [address] Performed By: #### 6 00-7 #### [facility] CLIA [id number] [address] [place] Urea nitrogen [Mass/Vol] 11 mg/dL Normal 9-24 [facility] Comment on above: Order Comment: Speci men Type: BLOOD SPECIMENOrdering Facility: [facility] Address: [address] [place] [address] Performed By: #### 6 00-7 #### [facility] CLIA [id number] [address] [place] Magnesium SerPl-mCncon 12-01 Magnesium [Mass/Vol] 2.3 mg/dL Normal 1.7-2.3 [facility] Comment on above: Order Comment: Speci men Type: BLOOD SPECIMENOrdering Facility: [facility] Address: [address] [place] [address] Performed By: #### 6 00-7 #### [facility] CLIA [id number] [address] [place] NURSING PROGon 12-02-2023 NURSING PROG HNO ID: [id number] Author: RUBY MOTT RN Service: ? Author Type: Registered Nurse Type: Nursing Progress Note Filed: 12/02/2023 12:16 Note Text: Discharge instructions printed and explained to pt and spouse. Questions answered. Personal belongings with pt and spouse. Pt discharged via wheelchair. Pt d/c to home with . Normal [facility] TSH SerPl-aCncon 12-02-2023 TSH Qn 1.730 m[IU]/L Normal 0.270-4.200 [facility] Comment on above: Order Comment: Speci men Type: BLOOD SPECIMENOrdering Facility: [facility] Address: [address] [place] [address] Performed By: #### 6 00-7 #### [facility] CLIA [id number] [address] [place] [address] [place] Basic metabolic 2000 panelon 12-01-2023 Anion gap [Moles/Vol] 12 mmol/L Normal 9-18 [facility] Comment on above: Order Comment: Speci men Type: BLOOD SPECIMENOrdering Facility: [facility] Address: [address] [place] [address] Performed By: #### 3 2355-0 #### [facility] CLIA [id number] 1 [place] [address] [place] Calcium [Mass/Vol] 9.0 mg/dL Normal 8.5-10.2 [facility] Comment on above: Order Comment: Speci men Type: BLOOD SPECIMENOrdering Facility: [facility] Address: [address] [place] [address] Performed By: #### 3 2355-0 #### [facility] CLIA [id number] [address] [place] Chloride [Moles/Vol] 87 mmol/L Low 97-105 [facility] Comment on above: Order Comment: Speci men Type: BLOOD SPECIMENOrdering Facility: [facility] Address: [address] [place] [address] Performed By: #### 3 2355-0 #### [facility] CLIA [id number] [address] [place] CO2 [Moles/Vol] 24 mmol/L Normal 22-30 [facility] Comment on above: Order Comment: Speci men Type: BLOOD SPECIMENOrdering Facility: [facility] Address: [address] [place] [address] Performed By: #### 3 2355-0 #### [facility] CLIA [id number] [address] [place] [address] [place] Creatinine [Mass/Vol] 0.88 mg/dL Normal 0.73-1.22 [facility] Comment on above: Order Comment: Speci men Type: BLOOD SPECIMENOrdering Facility: [facility] Address: [facility] [place] [address] Performed By: #### 3 2355-0 #### [facility] CLIA [id number] 1 [place] [address] [place] Creatinine and Glomerular filtration rate.predicted panel (S/P/Bld) 96 mL/min/1.73m??? Normal >=60 [facility] Comment on above: Order Comment: Speci brian Type: BLOOD SPECIMENOrdering Facility: [facility] Address: [address] [place] [address] Result Comment: Lala mated Glomerular Filtration Rate [...] GFR. Performed By: #### 3 2355-0 #### [facility] CLIA [id number] [address] [place] [address] [place] Glucose [Mass/Vol] 103 mg/dL High 74-99 [facility] Comment on above: Order Comment: Speci brian Type: BLOOD SPECIMENOrdering Facility: [facility] Address: [address] [place] [address] Result Comment: The [place] Diabetes Association (ADA) provides guidance for cutoff [...] Standards of Medical Care in Diabetes 2016, [place] Diabetes [employer]. Diabetes Care. 2016.39(Suppl 1). Performed By: #### 3 2355-0 #### [facility] CLIA [id number] [address] [place] [address] [place] Potassium [Moles/Vol] 4.3 mmol/L Normal 3.7-5.1 [facility] Comment on above: Order Comment: Speci men Type: BLOOD SPECIMENOrdering Facility: [facility] Address: [address] [place] [address] Performed By: #### 3 2355-0 #### [facility] CLIA [id number] [address] STATES OF [facility] Sodium [Moles/Vol] 123 mmol/L Low 136-144 [facility] Comment on above: Order Comment: Speci men Type: BLOOD SPECIMENOrdering Facility: [facility] Address: [address] [place] [address] Performed By: #### 3 2355-0 #### [facility] CLIA [id number] [address] [place] Urea nitrogen [Mass/Vol] 7 mg/dL Low 9-24 [facility] Comment on above: Order Comment: Speci men Type: BLOOD SPECIMENOrdering Facility: [facility] Address: [address] [place] [address] Performed By: #### 3 2355-0 #### [facility] CLIA [id number] [address] [place] CBC W Auto Differential pane l (Bld)on 12-01-2023 Basophils (Bld) [#/Vol] 0.06 10*3/uL Normal <0.11 [facility] Comment on above: Order Comment: Speci men Type: BLOOD SPECIMENOrdering Facility: [facility] Address: [address] [place] [address] Performed By: #### 5 7021-8 ####[facility] LABCLIA [id number] [address] [place] Basophils/100 WBC (Bld) 0.9 % Normal [facility] Comment on above: Order Comment: Speci men Type: BLOOD SPECIMENOrdering Facility: [facility] Address: [address] [place] [address] Performed By: #### 5 7021-8 ####[facility] LABCLIA [id number] [place] [address] [facility] Differential cell count method Nom (Bld) Auto Normal [facility] Comment on above: Order Comment: Speci men Type: BLOOD SPECIMENOrdering Facility: [facility] Address: [address] [place] [address] Performed By: #### 5 7021-8 ####[facility] LABCLIA [id number] [place] [address] [facility] [place] Eosinophils (Bld) [#/Vol] 0.07 10*3/uL Normal <0.46 [facility] Comment on above: Order Comment: Speci men Type: BLOOD SPECIMENOrdering Facility: [facility] Address: [address] [place] [address] Performed By: #### 5 7021-8 ####[facility] LABCLIA [id number] [place] [id number] [facility] Eosinophils/100 WBC (Bld) 1.0 % Normal [facility] Comment on above: Order Comment: Speci men Type: BLOOD SPECIMENOrdering Facility: [facility] Address: [address] [place] [address] Performed By: #### 5 7021-8 ####[facility] LABCLIA [id number] [place] [address] [facility] Erythrocyte distribution width (RBC) [Ratio] 14.1 % Normal 11.5-15.0 [facility] Comment on above: Order Comment: Speci men Type: BLOOD SPECIMENOrdering Facility: [facility] Address: [address] [place] [address] Performed By: #### 5 7021-8 ####[facility] LABCLIA [id number] [place] [address] [facility] Hematocrit (Bld) [Volume fraction] 37.6 % Low 39.0-51.0 [facility] Comment on above: Order Comment: Speci men Type: BLOOD SPECIMENOrdering Facility: [facility] Address: [address] [place] [address] Performed By: #### 5 7021-8 ####[facility] LABCLIA [id number] [place] [address] [place] Hemoglobin (Bld) [Mass/Vol] 13.0 g/dL Normal 13.0-17.0 [facility] Comment on above: Order Comment: Speci men Type: BLOOD SPECIMENOrdering Facility: [facility] Address: [address] [place] [address] Performed By: #### 5 7021-8 ####[facility] LABCLIA [id number] [place] [address] [place] Immature granulocytes (Bld) [#/Vol] 0.04 10*3/uL Normal <0.10 [facility] Comment on above: Order Comment: Speci men Type: BLOOD SPECIMENOrdering Facility: [facility] Address: [address] [place] [address] Performed By: #### 5 7021-8 ####[facility] LABCLIA [id number] [place] [address] [place] Immature granulocytes/100 WBC (Bld) 0.6 % Normal [facility] Comment on above: Order Comment: Speci men Type: BLOOD SPECIMENOrdering Facility: [facility] Address: [address] [place] [address] Performed By: #### 5 7021-8 ####[facility] LABCLIA [id number] [place] [address] [place] Lymphocytes (Bld) [#/Vol] 1.24 10*3/uL Normal 1.00-4.00 [facility] Comment on above: Order Comment: Speci men Type: BLOOD SPECIMENOrdering Facility: [facility] Address: [address] [place] [address] Performed By: #### 5 7021-8 ####[facility] LABCLIA [id number] [place] [address] [place] Lymphocytes/100 WBC (Bld) 18.2 % Normal [facility] Comment on above: Order Comment: Speci men Type: BLOOD SPECIMENOrdering Facility: [facility] Address: [address] [place] [address] Performed By: #### 5 7021-8 ####[facility] LABCLIA [id number] [place] [address] [place] MCH (RBC) [Entitic mass] 29.5 pg Normal 26.0-34.0 [facility] Comment on above: Order Comment: Speci men Type: BLOOD SPECIMENOrdering Facility: [facility] Address: [address] [place] [address] Performed By: #### 5 7021-8 ####[facility] LABCLIA [id number] [place] [address] [facility] [place] MCHC (RBC) [Mass/Vol] 34.6 g/dL Normal 30.5-36.0 [facility] Comment on above: Order Comment: Speci men Type: BLOOD SPECIMENOrdering Facility: [facility] Address: [address] [place] [address] Performed By: #### 5 7021-8 ####[facility] LABCLIA [id number] [place] [address] [facility] [place] MCV (RBC) [Entitic vol] 85.3 fL Normal 80.0-100.0 [facility] Comment on above: Order Comment: Speci men Type: BLOOD SPECIMENOrdering Facility: [facility] Address: [address] [place] [address] Performed By: #### 5 7021-8 ####[facility] LABCLIA [id number] [place] [address] [facility] Monocytes (Bld) [#/Vol] 0.89 10*3/uL High <0.87 [facility] Comment on above: Order Comment: Speci men Type: BLOOD SPECIMENOrdering Facility: [facility] Address: [address] [place] [address] Performed By: #### 5 7021-8 ####[facility] LABCLIA [id number] [place] [address] [place] Monocytes/100 WBC (Bld) 13.1 % Normal [facility] Comment on above: Order Comment: Speci men Type: BLOOD SPECIMENOrdering Facility: [facility] Address: [address] [place] [address] Performed By: #### 5 7021-8 ####[facility] LABCLIA [id number] [facility] [place] [address] [place] Neutrophils (Bld) [#/Vol] 4.50 10*3/uL Normal 1.45-7.50 [facility] Comment on above: Order Comment: Speci men Type: BLOOD SPECIMENOrdering Facility: [facility] Address: [address] [place] [address] Performed By: #### 5 7021-8 ####[facility] LABCLIA [id number] [facility] [address] [place] Neutrophils/100 WBC (Bld) 66.2 % Normal [facility] Comment on above: Order Comment: Speci men Type: BLOOD SPECIMENOrdering Facility: [facility] Address: [address] [place] [address] Performed By: #### 5 7021-8 ####[facility] [id number] [facility] [address] [place] Nucleated RBC (Bld) [#/Vol] Normal [facility] Comment on above: Order Comment: Speci men Type: BLOOD SPECIMENOrdering Facility: [facility] Address: [address] [place] [address] Performed By: #### 5 7021-8 ####[facility] [place] LABCLIA [id number] [place] [address] [place] Nucleated RBC/100 WBC (Bld) [Ratio] Normal [facility] Comment on above: Order Comment: Speci men Type: BLOOD SPECIMENOrdering Facility: [facility] Address: [address] [place] [address] Performed By: #### 5 7021-8 ####[facility] [place] LABCLIA [id number] [place] [address] [place] Platelet mean volume (Bld) [Entitic vol] 8.8 fL Low 9.0-12.7 [facility] Comment on above: Order Comment: Speci men Type: BLOOD SPECIMENOrdering Facility: [facility] Address: [address] [place] [address] Performed By: #### 5 7021-8 ####[facility] [place] LABCLIA [id number] [place] [address] [place] Platelets (Bld) [#/Vol] 242 10*3/uL Normal 150-400 [facility] Comment on above: Order Comment: Speci men Type: BLOOD SPECIMENOrdering Facility: [facility] Address: [address] [place] [address] Performed By: #### 5 7021-8 ####[facility] LABCL[facility] [id number] [facility] [place] [address] [place] RBC (Bld) [#/Vol] 4.41 10*6/uL Normal 4.20-6.00 [facility] Comment on above: Order Comment: Speci men Type: BLOOD SPECIMENOrdering Facility: [facility] Address: [address] [place] [address] Performed By: #### 5 7021-8 ####[facility] [place] LABCLIA [id number] [place] [address] [place] WBC (Bld) [#/Vol] 6.80 10*3/uL Normal 3.70-11.00 [facility] Comment on above: Order Comment: Speci men Type: BLOOD SPECIMENOrdering Facility: [facility] Address: [address] [place] [address] Performed By: #### 5 7021-8 ####[facility] [place] LABCLIA [id number] [place] [address] [facility] ECG COMPLETEon 12-01-2023 ECG COMPLETE Ventricular Rate : 6 9 BPM Atrial Rate : 69 BPM P-R Interval : 138 ms QRS Duration : 126 ms Q-T Interval : 450 ms QTC Calculation(Bazett) : 482 ms Calculated P [place] : -13 degrees Calculated R [place] : 78 degrees Calculated T [place] : 24 degrees SINUS RHYTHM WITH PREMATURE SUPRAVENTRICULAR COMPLEXES RIGHT BUNDLE BRANCH BLOCK ABNORMAL ECG NO PREVIOUS ECGS AVAILABLE Confirmed by MD SUAREZ VINAYAK ([id number]) on 12/03/2023 4:27:07 PM NAME : ELIS BILLS PID : [id number] : 1960 Gender : Male Race : ORD : [id number] Procedure Date : Dec 01 2023 09:50:21 Edit Date : Dec 03 2023 16:27:10 Diagnosis: SINUS RHYTHM WITH PREMATURE SUPRAVENTRICULAR COMPLEXES RIGHT BUNDLE BRANCH BLOCK ABNORMAL ECG NO PREVIOUS ECGS AVAILABLE Confirmed by MD SUAREZ VINAYAK ([id number]) on 12/03/2023 4:27:07 PM Test Reason : Shortness of Breath Location : 191 : [facility] ED Overread By : MD SUAREZ VINAYAK Edited By : MD SUAREZ VINAYAK Referred By : , Acquired by : DAREN RUCKER [facility] ED NOTEon 12-01-2023 ED NOTE HNO ID: [id number] Author: JORGE JONES RN Service: Nursing Author Type: Registered Nurse Type: ED Notes Filed: 12/01/2023 12:48 Note Text: Patient resting in bed with spouse at bedside. This RN notified patient of room assignment. [facility] ED NOTE HNO ID: [id number] Author: JORGE JONES RN Service: Nursing Author Type: Registered Nurse Type: ED Notes Filed: 12/01/2023 10:59 Note Text: Patient ambulated to bathroom with steady gait. He returned to room 12 SOB, and feeling unchanged from when he arrived. [facility] ED NOTE HNO ID: [id number] Author: JORGE JONES, RN Service: Nursing Author Type: Registered Nurse Type: ED Notes Filed: 12/01/2023 09:34 Note Text: Russel patient started to feeling winded and it has progressed to SOB with rest or activity. He has used several albuterol treatments at home with no improvement of symptoms. He denies fever but reports a productive cough. No home oxygen needs for his COPD. Normal [facility] ED PROV NOTEon 12-01-2023 ED PROV NOTE HNO ID: [id number] Author: KEYONA CARL DO Service: Emergency Medicine [...] within n (more content not included)... Normal [facility] FLUABV+SARS-CoV-2+RSV Pnl Re sp YADIRA+probeon 12-01-2023 FLUABV+SARS-CoV-2+RSV Pnl Resp YADIRA+probe COVID 19 RESULT: Not detected The method used is RT-PCR or an equivalent NAAT method. Reference Range(the expected result in uninfected individuals): Not detected INFLUENZA A PCR: Not detected INFLUENZA B PCR: Not detected RSV PCR: Not detected Normal [facility] Comment on above: Performed By: #### 9 5941-1 ####[facility] [place] LABCLIA [id number] [place] [address] [place] HIGH SENSITIVITY TROPONIN T (INITIAL)on 12-01-2023 Troponin T.cardiac High sensitivity method [Mass/Vol] 31 ng/L High <12 [facility] Comment on above: Order Comment: Speci men Type: BLOOD SPECIMENOrdering Facility: [facility] Address: [address] [place] [address] Result Comment: When assessing risk for acute [...] MACE. Performed By: #### 6 00-7 #### [facility] CLIA [id number] [address] [place] HIGH SENSITIVITY TROPONIN T (SECOND)on 12-01-2023 Troponin T.cardiac High sensitivity method [Mass/Vol] 29 ng/L High <12 [facility] Comment on above: Order Comment: Wilbert torres Type: BLOOD SPECIMENOrdering Facility: [facility] Address: [address] [place] [address] Result Comment: When assessing risk for acute [...] MACE. Performed By: #### 6 00-7 #### [facility] CLIA [id number] [address] HIGH SENSITIVITY TROPONIN T (THIRD) 3 HRS AFTER INITIALon 12-01-2023 Troponin T.cardiac High sensitivity method [Mass/Vol] 24 ng/L High <12 [facility] Comment on above: Order Comment: Wilbert torres Type: BLOOD SPECIMENOrdering Facility: [facility] Address: [address] [place] [address] Result Comment: When assessing risk for acute [...] MACE. Performed By: #### 3 2355-0 #### [facility] CLIA [id number] [address] [place] [address] HISTORY PHYSICALon HISTORY PHYSICAL HNO ID: [id number] Author: ALBERTINA DAVILA APRN.PROFESSOR OF MARKETING Service: Hospital Medicine Author Type: Nurse Practitioner Type: H&P Filed: 12/01/2023 15:07 Note Text: Attestation signed by Ji Fonseca MD at 12/10/2023 9:25 PM [facility] [place] STAFF PHYSICIAN NOTE [...] exacerbation (HCC) (POA: Yes) Ji Fonseca MD, [facility] Staff,Dept of Hospital Medicine December 10, 2023 9:25 PM Pager:Click here to page DEPARTMENT OF HOSPITAL MEDICINE HISTORY AND PHYSICAL EXAM SERVICE DATE: 12/01/2023 SERVICE TIME: 1:45 PM Primary Care Physician: Pilar Lanza DO NIGHT AND WEEKEND COVERAGE: [facility] Medicine ROMÁN 7a-7p Page [phone] [id number] Subjective CHIEF COMPLAINT: SOB HPI: This is [...] 12 hours. 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 [...] agreeable to observation overnight, but only at [facility]. Patient will be admitted for further [...] daily at bedtime., Disp: 90 tablet, Rfl: , 11/30/2023 nicotine polacrilex (NICORETTE) 4 mg gum, [...] He is (more content not included)... Normal [facility] NT-proBNP [facility] 11-30 Natriuretic peptide.B prohormone N-Terminal [Mass/Vol] 214 pg/mL High <125 [facility] Comment on above: Order Comment: Speci men Type: BLOOD SPECIMENOrdering Facility: [facility] Address: [address] [place] [address] Performed By: #### 3 2355-0 #### [facility] CLIA [id number] [address] OF [facility] NURSING PROGon 12-01-2023 NURSING PROG HNO ID: [id number] Author: ARI HATCH, RN Service: Nursing Author [...] pain. Pt c/odiscomfort. present in room. Normal [facility] Osmolality SerPlon 4 Osmolality [Osmolality] 262 mosm/kg Low 275-300 [facility] Comment on above: Order Comment: Speci men Type: BLOOD SPECIMENOrdering Facility: [facility] Address: [address] [place] [address] Performed By: #### 6 00-7 #### [facility] CLIA [id number] [address] [place] [address] [place] Osmolality Uron 12-01-2023 Osmolality (U) [Osmolality] 111 mosm/kg Normal 50-1200 [facility] Comment on above: Order Comment: Speci men Type: URINE SPECIMENOrdering Facility: [facility] Address: [address] [place] [address] Performed By: #### 2 695-5 ####[facility] LABCLIA [id number] [place] [address] [place]#### 01875-7 ####[facility]ORY[facility]IA [id number] [address] [place] Procalcitonin SerPl-mCncon 0 12-01-2023 Procalcitonin [Mass/Vol] 0.08 ng/mL Normal <0.09 [facility] Comment on above: Order Comment: Speci men Type: BLOOD SPECIMENOrdering Facility: [facility] Address: [address] [place] [address] Result Comment: For a guided interpretation of test results, please visit the Change in Procalcitonin Calculator, [email or web address]. Performed By: #### 3 2355-0 #### [facility] CLIA [id number] [address] [place] [address] [place] Sodium ?Tm Ur-sCncon 024 Sodium Unsp time (U) [Moles/Vol] <20 Normal 14-216 [facility] Comment on above: Order Comment: Speci men Type: URINE SPECIMENOrdering Facility: [facility] Address: [address] [place] [address] Performed By: #### 2 695-5 ####[facility] LABCLIA [id number] [address] [place] [address] [place]#### 47183-4 ####[facility]ORY[facility]IA [id number] [address] [place] Urate SerPl-mCncon 4 Urate [Mass/Vol] 6.8 mg/dL Normal 4.0-8.1 [facility] Comment on above: Order Comment: Speci men Type: BLOOD SPECIMENOrdering Facility: [facility] Address: [address] [place] [address] Performed By: #### 3 2355-0 #### [facility] CLIA [id number] [address] [place] [id number] [facility] XR CHEST 1V FRONTALon 2023 [...] right basilar opacity suggesting atelectasis. Mild cardiomegaly. Litigation Attorney: YAIR Transcribe Date/Time: Dec 01 2023 10:52A Dictated by : JUAREZ RODAS MD This examination was interpreted and the report reviewed and electronically signed by: JUAREZ RODAS MD on Dec 01 2023 10:57AM EST [id number] Normal [facility] CNPNon 11-21-2023 CNPN Telephone (AGSPHWG) ELIS BILLS ([id number]) 1960 M Date Time Provider Department 11/21/23 BERTHA KAUR AGSPHWG During your visit today, we recorded the following information about you: Bertha Kaur APRN.NABOR 11/21/2023 10:20 PM Signed Hi, can you please call this pt and set up for a virtual visit with me this to discuss his MRI results? Thanks. Albertina Martin 11/23/2023 9:13 AM Signed Spoke with patient and scheduled virtual visit with Bertha Kaur on 11/25/2023 to discuss MRI Albertina Martin Sand Filler to Dr. Everton Sanchez MD / Bertha Kaur CNP, APRN [facility] [address] [place] [address] Phone. [phone] / Fax. [phone] Allergies As of Date: 11/21/2023 Noted Allergy Reaction PENICILLINS 08/27/2014 16 - Unknown Date Reviewed: 11/19/2023 Reviewed by: Malena Yoder, automobile service station attendant - Fully Assessed Prescriptions as of 11/23/2023 [...] Encounter Status:Closed by ALBERTINA MARTIN on 11/23/23 [facility] MR Lumbar spine WO contrasto n [...] and assume there are 5 lumbar-type vertebrae. Litigation Attorney: PSCB Transcribe Date/Time: Nov 19 2023 3:30P Dictated by : MECHELLE EDMONDSON MD This examination was interpreted and the report reviewed and electronically signed by: MECHELLE EDMONDSON MD on Nov 19 2023 3:44PM [facility] DIVISION OF RADIOLOGY * * *Final Report* * * DATE OF EXAM: Nov 19 2023 12:39PM [facility] 0303 - MRI LUMBAR SPINE WO IVCON [...] and assume there are 5 lumbar-type vertebrae. Litigation Attorney: PSCB Transcribe Date/Time: Nov 19 2023 3:30P Dictated by : MECHELLE EDMONDSON MD This examination was interpreted and the report reviewed and electronically signed by: MECHELLE EDMONDSON MD on Nov 19 2023 3:44PM EST [facility] Radiology Study observation (narrative) [facility] MR Lumbar spine WO contrastO rdered By: Ccf Provider on 11-19-2023 [facility] ALLIED HEALTHon 09-02-2023 ALLIED HEALTH HNO ID: [id number] Author: ERMIAS HAHN RT(R) Service: Radiology Author Type: Technologist Type: [...] PATIENT PRESENTS WITH AN IMPLANTABLE OR ATTACHED RDA: No RADIOLOGY DEPARTMENT: CT; Exam(s) Completed: Chest PERIPHERAL IV DATA: Not applicable SIGNED BY: Ermias Hahn RT(R) September 02, 2023 1:16 PM [facility] CT CHEST WO IVCONon 09-02-19 CT CHEST WO IVCON * * *Final Report* * * DATE OF EXAM: Sep 02 2023 1:21PM [facility] 0541 - CT CHEST WO IVCON / [...] No abnormality in the imaged upper abdomen. Roofing Tile Sorter (topogram) images: No additional findings. IMPRESSION: No [...] obtained in 12 months --END OF FINDING-- Litigation Attorney: YAIR Transcribe Date/Time: Sep 05 2023 11:40A Dictated by : WILLIAM QUINTANA MD This examination was interpreted and the report reviewed and electronically signed by: WILLIAM QUINTANA MD on Sep 05 2023 11:47AM EST [id number] ACTIONABLE Invalid Interpretation Code [facility] NITRIC OXIDE, EXHALEDon 08-19 [facility] SPIROMETRY WITH DILATOR IF O BSTRUCTEDon 08-20-2023 IAK91-68% PRE (L/S) 0.90 L/S [facility] FEV1 PRE (L) 1.70 L [facility] FEV1/FVC PRE (%) 70 % [facility] FVC PRE (L) 2.44 L [facility] PEF PRE (L/S) 5.67 L/S [facility] Basophil percentageOrdered B y: Pilar Lanza on 02-20-2023 Bilirubin [Mass/Vol] 0.60 mg/dL 0.20-1.00 [facility] Comment on above: For patients on eltr ombopag therapy, use of Dimension [place] TBIL is not recommended. Chloride [Moles/Vol] 101 mmol/L 98-107 [facility] Cholesterol [Mass/Vol] 89 mg/dL <200 [facility] Comment on above: <200 mg/dL Desirable 200-240 mg/dL Borderline >240 mg/dL High Risk Glucose [Mass/Vol] 102 mg/dL 74-[address] [facility] Comment on above: Fasting Glucose resu lt from 100 to 125 mg/dL suggests IMPAIRED HOMEOSTASIS per A.D.A. criteria. Potassium [Moles/Vol] 4.7 mmol/L 3.5-5.1 [facility] Protein [Mass/Vol] 7.3 g/dL 6.4-8.[address] [facility] Sodium [Moles/Vol] 135 mmol/L 136-[address] [facility] Triglyceride [Mass/Vol] 54 mg/dL <199 [facility] Comment on above: The drugs N-Acetylcy steine and Metamizole may falsely depress this assay.Serum Triglycerides Reference Interval Normal <150 mg/dL Borderline high 150 - 199 mg/dL High 200 - 499 mg/dL Very High > or = 500 mg/dL WBC (Bld) [#/Vol] 7.7 10*3/uL 4.4-11.[address] [facility] Blood erythrocytes count (nu mber/volume)Ordered By: Pilar Lanza on 02-20-2023 RBC (Bld) [#/Vol] 4.46 10*6/uL 4.6-6.2 [facility] Blood hemoglobin measurement (mass/volume)Ordered By: Pilar Lanza on 02-20-2023 Hemoglobin (Bld) [Mass/Vol] 13.2 g/dL 13.0-16.5 [facility] Blood platelet mean volumeOr dered By: Pilar Lanza on 02-20-2023 Platelet mean volume (Bld) [Entitic vol] 9.4 fL 6.2-12.0 [facility] Determination of erythrocyte mean corpuscular volume (MCV)Ordered By: Pilar Lanza on 02-20-2023 MCV (RBC) [Entitic vol] 88.8 fL 80-94 [facility] Hematocrit Auto (Bld) [Volum e fraction]Ordered By: Pilar Lanza on 02-20-2023 Hematocrit (Bld) [Volume fraction] 39.6 % 40-54 [facility] Laboratory - Chemistry and C hemistry - challengeOrdered By: Pilar Lanza on 02-20-2023 ALP [Catalytic activity/Vol] 71 U/L 45-117 [facility] ALT [Catalytic activity/Vol] 26 U/L 16-61 [facility] CO2 [Moles/Vol] 29.0 mmol/L 21.0-32.0 [facility] Globulin (S) [Mass/Vol] 3.6 g/dL 2.2-4.2 [facility] Urea nitrogen/Creatinine [Mass ratio] 12.3 mg/mg 10-20 [facility] Laboratory - Hematology and Cell countsOrdered By: Pilar Lanza on 02-20-2023 Erythrocyte distribution width (RBC) [Entitic vol] 44.9 fL 35.1-43.9 [facility] Erythrocyte distribution width (RBC) [Ratio] 13.8 % 11.6-14.6 [facility] MCH (RBC) [Entitic mass] 29.6 pg 27.0-32.0 [facility] Auto (RBC) [Mass/Vol]Or dered By: Pilar Lanza on 02-20-2023 MCHC (RBC) [Mass/Vol] 33.3 g/dL 32-36 [facility] No Panel InformationOrdered By: Pilar Lanza on 02-20-2023 Estimated GFR (MDRD) Amer 99 mL/min >60 [facility] Comment on above: GFR Calc Estimated GFR (MDRD) Non-Af Amer 82 mL/min >60 [facility] Comment on above: Non- GFR Calc Prostate Specific Antigen Screen 0.77 ng/mL 0.00-4.00 [facility] Comment on above: This test was perfor med using the TPSA assay method for the[employer] chemistry system. Values obtained with differentassay methods cannot be used interchangably.When changing PSA assays in the course of monitoring apatient, additional sequential testing should be carriedout to confirm baseline values. Platelets bldOrdered By: Jeffrey Lanza on 02-20-2023 Platelets (Bld) [#/Vol] 250 10*3/uL 150-450 [facility] Serum or plasma albumin sidra urement (mass/volume)Ordered By: Pilar Lanza on 02-20-2023 Albumin [Mass/Vol] 3.7 g/dL 3.2-5.[address] [facility] Serum or plasma albumin/glob ulin mass ratioOrdered By: Pilar Lanza on 02-20-2023 Albumin/Globulin [Mass ratio] 1.0 {ratio} 0.9-2.4 [facility] Serum or plasma calcium sidra urement (mass/volume)Ordered By: Pilar Lanza on 02-20-2023 Calcium [Mass/Vol] 8.7 mg/dL 8.5-10.[address] [facility] Serum or plasma cholesterol in HDL measurement (mass/volume)Ordered By: Pilar Lanza on 02-20-2023 Cholesterol in HDL [Mass/Vol] 48 mg/dL >40 [facility] Comment on above: The drugs N-Acetylcy steine and Metamizole may falsely depress this assay. Reference Range HDL <40 mg/dL Low HDL Cholesterol HDL >or= 60 mg/dL High HDL Cholesterol Serum or plasma cholesterol in VLDL measurement (mass/volume)Ordered By: Pilar Lanza on 02-20-2023 Cholesterol in VLDL [Mass/Vol] 11 mg/dL 5-40 [facility] Serum or plasma creatinine m easurement (mass/volume)Ordered By: Pilar Lanza on 02-20-2023 Creatinine [Mass/Vol] 0.98 mg/dL 0.70-1.30 [facility] Comment on above: The validity of the calculated GFR & GFRAA in patients over 70 years has not been determined. Clinical correlation is essential. Serum or plasma low density lipoprotein (LDL) cholesterol measurement (mass/volume)Ordered By: Pilar Lanza on 02-20-2023 Cholesterol in LDL [Mass/Vol] 30 mg/dL 0-130 [facility] Serum or plasma urea nitroge n measurement (mass/volume)Ordered By: Pilar Lanza on 02-20-2023 Urea nitrogen [Mass/Vol] 12 mg/dL 7-18 [facility] Thin prep Papanicolaou smear with manual screeningOrdered By: Pilar Lanza on 02-20-2023 Thin prep Papanicolaou smear with manual screening 17 U/L 15-37 [facility] Thin prep Papanicolaou smear with manual screening 5 5-15 [facility] Basophil percentageon 2021 Bilirubin [Mass/Vol] 0.60 mg/dL 0.20-1.00 [facility] Work Phone: Comment on above: For patients on eltr ombopag therapy, use of Dimension [place] TBIL is not recommended. Chloride [Moles/Vol] 102 mmol/L 98-107 [facility] Work Phone: Cholesterol [Mass/Vol] 86 mg/dL <200 [facility] Work Phone: Comment on above: <200 mg/dL Desirable 200-240 mg/dL Borderline >240 mg/dL High Risk Glucose [Mass/Vol] 98 mg/dL 74-[address] [facility] Work Phone: Potassium [Moles/Vol] 4.3 mmol/L 3.5-5.1 [facility] Work Phone: Protein [Mass/Vol] 7.0 g/dL 6.4-8.[address] [facility] Work Phone: Sodium [Moles/Vol] 134 mmol/L 136-[address] [facility] Work Phone: Triglyceride [Mass/Vol] 51 mg/dL <199 [facility] Work Phone: Comment on above: The drugs N-Acetylcy steine and Metamizole may falsely depress this assay.Serum Triglycerides Reference Interval Normal <150 mg/dL Borderline high 150 - 199 mg/dL High 200 - 499 mg/dL Very High > or = 500 mg/dL Laboratory - Chemistry and C hemistry - challengeon 02-07-2022 ALP [Catalytic activity/Vol] 79 U/L 45-117 [facility] Work Phone: ALT [Catalytic activity/Vol] 30 U/L 16-61 [facility] Work Phone: CO2 [Moles/Vol] 27.0 mmol/L 21.0-32.0 [facility] Work Phone: Globulin (S) [Mass/Vol] 3.5 g/dL 2.2-4.2 [facility] Work Phone: Urea nitrogen/Creatinine [Mass ratio] 6.2 mg/mg 10-20 [facility] Work Phone: No Panel Informationon 02-07 Estimated GFR (MDRD) Amer 102 mL/min >60 [facility] Work Phone: Comment on above: GFR Calc Estimated GFR (MDRD) Non-Af Amer 84 mL/min >60 [facility] Work Phone: Comment on above: Non- GFR Calc Prostate Specific Antigen Screen 0.99 ng/mL 0.00-4.00 [facility] Work Phone: Comment on above: This test was perfor med using the TPSA assay method for the[facility] system. Values obtained with differentassay methods cannot be used interchangably.When changing PSA assays in the course of monitoring apatient, additional sequential testing should be carriedout to confirm baseline values. Serum or plasma albumin sidra urement (mass/volume)on 02-07-2022 Albumin [Mass/Vol] 3.5 g/dL 3.2-5.[address] [facility] Work Phone: Serum or plasma albumin/glob ulin mass ratioon 02-07-2022 Albumin/Globulin [Mass ratio] 1.0 {ratio} 0.9-2.4 [facility] Work Phone: Serum or plasma calcium sidra urement (mass/volume)on 02-07-2022 Calcium [Mass/Vol] 8.7 mg/dL 8.5-10.[address] [facility] Work Phone: Serum or plasma cholesterol in HDL measurement (mass/volume)on 02-07-2022 Cholesterol in HDL [Mass/Vol] 41 mg/dL >40 [facility] Work Phone: Comment on above: The drugs N-Acetylcy steine and Metamizole may falsely depress this assay. Reference Range HDL <40 mg/dL Low HDL Cholesterol HDL >or= 60 mg/dL High HDL Cholesterol Serum or plasma cholesterol in VLDL measurement (mass/volume)on 02-07-2022 Cholesterol in VLDL [Mass/Vol] 10 mg/dL 5-40 [facility] Work Phone: Serum or plasma creatinine m easurement (mass/volume)on 02-07-2022 Creatinine [Mass/Vol] 0.96 mg/dL 0.70-1.30 [facility] Work Phone: Comment on above: The validity of the calculated GFR & GFRAA in patients over 70 years has not been determined. Clinical correlation is essential. Serum or plasma low density lipoprotein (LDL) cholesterol measurement (mass/volume)on 02-07-2022 Cholesterol in LDL [Mass/Vol] 35 mg/dL 0-130 [facility] Work Phone: Serum or plasma urea nitroge n measurement (mass/volume)on 02-07-2022 Urea nitrogen [Mass/Vol] 6 mg/dL 7-18 [facility] Work Phone: Thin prep Papanicolaou smear with manual screeningon 02-07-2022 Thin prep Papanicolaou smear with manual screening 17 U/L 15-37 [facility] Work Phone: Thin prep Papanicolaou smear with manual screening 5 5-15 [facility] Work Phone: Serum or plasma severe acute respiratory syndrome coronavirus 2 (SARS-CoV-2) IgG antion 01-31-2022 SARS-CoV-2 (COVID-19) IgG IA Ql See comment [facility] Work Phone: Comment on above: TEST RESULT LIMITSSA RS-CoV-2 Antibody, [id number] Semi-Quant IgG Ab A, 47.8 AU/mL Neg <13.0SARS-CoV-2 Cl Ab Interp A, PositiveAntibodies against the SARS-CoV-2 spike protein, including the receptor binding domain (RBD) were detected. It is not yet known what level of antibody to SARS-CoV-2 spike protein correlates to immunity against developing symptomatic SARS-CoV-2 disease.This assay was performed using [employer](R) SARS-CoV-2 Trimeric S IgG assay.CommentsA: This [...] not for any other viruses or pathogens. TESTING PERFORMED AT [facility]. ORIGINAL REPORT ON FILE IN LAB CONTAINS ADDITIONAL TEST SITE INFORMATION. .GFRon 12-30-2019 GFR 87 ml/min/1.73sqm Normal [facility] ([place]) Comment on above: Result Comment: GFR Population [...] mL/min/1.73 square meters Performed By: #### L MARIAMID, CMP, GFR #### [place] [address] [address] GFR Non- 72 ml/min/1.73sqm Normal [facility] ([place]) Comment on above: Result Comment: GFR Population [...] #### L IPID, CMP, GFR #### [place] [address] [address] CMPon 12-30-2019 Albumin [Mass/Vol] 4.2 G/dL Normal 3.4-4.8 [facility] ([place]) Comment on above: Performed By: #### L IPID, CMP, GFR #### [address] [address] Albumin/Globulin [Mass ratio] 1.3 {ratio} Normal 1.1-2.5 [facility] ([place]) Comment on above: Performed By: #### L IPID, CMP, GFR #### [address] [address] ALP [Catalytic activity/Vol] 76 U/L Normal 40-135 [facility] ([place]) Comment on above: Performed By: #### L IPID, CMP, GFR #### [address] [address] ALT [Catalytic activity/Vol] 36 U/L High 10-35 [facility] ([place]) Comment on above: Performed By: #### L IPID, CMP, GFR #### [address] [address] AST [Catalytic activity/Vol] 22 U/L Normal 10-40 [facility] ([place]) Comment on above: Performed By: #### L IPID, CMP, GFR #### [address] [address] Bili Total 0.6 mg/dL Normal 0.2-1.0 [facility] ([place]) Comment on above: Result Comment: Use of this assay is not recommended for patients undergoing treatment with eltrombopag due to the potential for falsely elevated results. Performed By: #### L IPID, CMP, GFR #### [address] [address] Calcium [Mass/Vol] 8.9 mg/dL Normal 8.4-10.2 [facility] ([place]) Comment on above: Performed By: #### L IPID, CMP, GFR #### [address] [address] Chloride [Moles/Vol] 97 mmol/L Low 98-107 [facility] ([place]) Comment on above: Performed By: #### L IPID, CMP, GFR #### [address] [address] CO2 [Moles/Vol] 28 mmol/L Normal 23-31 [facility] ([place]) Comment on above: Performed By: #### L IPID, CMP, GFR #### [address] [address] Creatinine [Mass/Vol] 1.05 mg/dL Normal 0.70-1.30 [facility] ([place]) Comment on above: Performed By: #### L IPID, CMP, GFR #### [address] [address] Electrolyte Balance 8.0 mEq/L Normal [facility] ([place]) Comment on above: Performed By: #### L IPID, CMP, GFR #### [address] [address] Globulin (S) [Mass/Vol] 3.3 G/dL Normal [facility] ([place]) Comment on above: Performed By: #### L IPID, CMP, GFR #### [address] [address] Glucose [Mass/Vol] 99 mg/dL Normal 80-115 [facility] ([place]) Comment on above: Performed By: #### L IPID, CMP, GFR #### [address] [address] Potassium [Moles/Vol] 5.1 mmol/L Normal 3.5-5.1 [facility] ([place]) Comment on above: Performed By: #### L IPID, CMP, GFR #### [address] [address] Protein [Mass/Vol] 7.5 G/dL Normal 6.4-8.2 [facility] ([place]) Comment on above: Performed By: #### L IPID, CMP, GFR #### [address] [address] Sodium [Moles/Vol] 133 mmol/L Low 136-145 [facility] ([place]) Comment on above: Performed By: #### L IPID, CMP, GFR #### [address] [address] Urea nitrogen [Mass/Vol] 13 mg/dL Normal 7-18 [facility] ([place]) Comment on above: Performed By: #### L IPID, CMP, GFR #### [address] [address] Urea nitrogen/Creatinine [Mass ratio] 12 ratio Normal 7-27 [facility] ([place]) Comment on above: Performed By: #### L IPID, CMP, GFR #### [address] [address] LIPIDon 12-30-2019 Cholesterol [Mass/Vol] 111 mg/dL Normal 0-200 [facility] ([place]) Comment on above: Result Comment: Chol esterol Reference Interval: Less than 200 Desirable 200-239 Borderline high risk 240 and above High risk Performed By: #### L IPID, CMP, GFR #### [address] [address] Cholesterol in HDL [Mass/Vol] 54 mg/dL Normal 40-60 [facility] ([place]) Comment on above: Performed By: #### L IPID, CMP, GFR #### [address] [address] Cholesterol in LDL [Mass/Vol] 50 mg/dL Normal 0-130 [facility] ([place]) Comment on above: Performed By: #### L IPID, CMP, GFR #### [address] [address] Triglyceride [Mass/Vol] 35 mg/dL Normal 0-150 [facility] ([place]) Comment on above: Result Comment: Trig lyceride Reference Interval: Less than 150 Normal 150-199 Borderline high risk 200-499 High risk 500 or higher Very high risk Performed By: #### L IPID, CMP, GFR #### [address] [address] Vital Signs Date Time Vital Sign Value Performing Clinician Facility 03-05-2025 12:16-0400 Heart rate 75 /min Dr. Austin Perez DO Work Phone: 4(351)202-795545 [place] [address] 03-05-2025 12:16-0400 Respiratory rate 18 /min Dr. Austin Perez DO Work Phone: 9(354)813-631204 [place] [address] 03-05-2025 11:30-0400 Body height 175.[address] Austin Perez DO Work Phone: 0(357)631-362004 [place] [address] 03-05-2025 11:30-0400 Body weight 120.[address] Austin Perez DO Work Phone: 4(196)590-559004 [place] [address] 03-05-2025 11:00-0400 Body temperature 98.2 [degF] Dr. Austin Perez DO Work Phone: 5(508)684-432604 [place] [address] 03-05-2025 11:00-0400 Diastolic blood pressure 84 mm[Hg] Dr. Austin Perez DO Work Phone: 2(682)630-727404 [place] [address] 03-05-2025 11:00-0400 SaO2% (BldA) [Mass fraction] 93 % Dr. Austin Perez DO Work Phone: 9(725)346-699645 [place] [address] 03-05-2025 11:00-0400 Systolic blood pressure 151 mm[Hg] Dr. Austin Perez DO Work Phone: 0(287)665-256645 [place] [address] 03-04-2025 05:04-0400 Body mass index (BMI) [Ratio] 39.3 kg/m2 Dr. Austin Perez DO Work Phone: 8(351)595-951445 [place] [address] 03-03-2025 10:00-0400 Inhaled oxygen flow rate 2 L/min Dr. Austin Perez DO Work Phone: 0(524)969-039345 [place] [address] 03-02-2025 08:00-0400 Inhaled oxygen concentration 40 % Dr. Austin Perez DO Work Phone: 7(888)424-490445 [place] [address] 02-27-2025 01:15-0400 Body temperature 98.6 [degF] Dr. Austin Perez DO Work Phone: [facility] 02-27-2025 01:15-0400 Diastolic blood pressure 75 mm[Hg] Dr. Austin Perez DO Work Phone: 1(498)094-148245 [place] [address] 02-27-2025 01:15-0400 Heart rate 80 /min Dr. Austin Perez DO Work Phone: 5(265)227-858145 [place] [address] 02-27-2025 01:15-0400 Respiratory rate 28 /min Dr. Austin Perez DO Work Phone: [facility] 02-27-2025 01:15-0400 SaO2% (BldA) [Mass fraction] 94 % Dr. Austin Perez DO Work Phone: 0(819)544-297145 [place] [address] 02-27-2025 01:15-0400 Systolic blood pressure 134 mm[Hg] Dr. Austin Perez DO Work Phone: 7(463)461-740145 [place] [address] 02-27-2025 01:00-0400 Inhaled oxygen flow rate 2 L/min Dr. Austin Perez DO Work Phone: 7(442)909-731145 [place] [address] 02-26-2025 20:50-0400 Body height 175.[address] Austin Perez DO Work Phone: 3(037)175-638745 [place] [address] 02-26-2025 20:50-0400 Body mass index (BMI) [Ratio] 38.7 kg/m2 Dr. Austin Perez DO Work Phone: 7(859)418-587545 [place] [address] 02-26-2025 20:50-0400 Body weight [address] Austin Perez DO Work Phone: [facility] 01-08-2025 09:51-0400 Body mass index (BMI) [Ratio] 39.99 kg/m2 Veronica Butt APRN-PROFESSOR OF MARKETING Work Phone: [facility] 01-08-2025 09:51-0400 Body weight 119.3 kg Veronica Butt APRN-PROFESSOR OF MARKETING Work Phone: [facility] 01-08-2025 09:51-0400 Diastolic blood pressure 78 mm[Hg] Veronica Butt APRN-PROFESSOR OF MARKETING Work Phone: [facility] 01-08-2025 09:51-0400 Heart rate 73 /min Veronica Butt APRN-PROFESSOR OF MARKETING Work Phone: [facility] 01-08-2025 09:51-0400 SaO2% (BldA) [Mass fraction] 95 % Veronica Butt APRN-PROFESSOR OF MARKETING Work Phone: [email or web address] Comment on above: RA 01-08-2025 09:51-0400 Systolic blood pressure 128 mm[Hg] Veronica Butt APRN-PROFESSOR OF MARKETING Work Phone: [email or web address] 12-02-2024 13:20-0400 Body temperature 98.01 [degF] Davie Carroll MD Work Phone: [email or web address] 12-02-2024 13:20-0400 Diastolic blood pressure 78 mm[Hg] Davie Carroll MD Work Phone: [email or web address] 12-02-2024 13:20-0400 Heart rate 70 /min Davie Carroll MD Work Phone: [email or web address] 12-02-2024 13:20-0400 Respiratory rate 19 /min Davie Carroll MD Work Phone: [email or web address] 12-02-2024 13:20-0400 SaO2% (BldA) [Mass fraction] 99 % Davie Carroll MD Work Phone: [email or web address] 12-02-2024 13:20-0400 Systolic blood pressure 159 mm[Hg] Davie Carroll MD Work Phone: [email or web address] 11-17-2024 14:08-0400 Body height 174 cm Anna Sanders PA-C Work Phone: [email or web address] 11-17-2024 14:08-0400 Body mass index (BMI) [Ratio] 40.38 kg/m2 Anna Sanders PA-C Work Phone: [email or web address] 11-17-2024 14:08-0400 Body temperature 98.49 [degF] Anna Sanders PA-C Work Phone: [email or web address] 11-17-2024 14:08-0400 Body weight 122.24 kg Anna Sanders PA-C Work Phone: [facility] 11-17-2024 14:08-0400 Diastolic blood pressure 67 mm[Hg] Anna Lemusi PA-C Work Phone: [facility] 11-17-2024 14:08-0400 Heart rate 74 /min Anna Sanders PA-C Work Phone: [facility] 11-17-2024 14:08-0400 Respiratory rate 18 /min Anna Lemusi PA-C Work Phone: [email or web address] 11-17-2024 14:08-0400 SaO2% (BldA) [Mass fraction] 96 % Anna Lemusi PA-C Work Phone: [email or web address] 11-17-2024 14:08-0400 Systolic blood pressure 137 mm[Hg] Anna Lemusi PA-C Work Phone: [email or web address] 10-26-2024 12:02-0400 Diastolic blood pressure 94 mm[Hg] Aura Wagner MD Work Phone: [email or web address] 10-26-2024 12:02-0400 Heart rate 83 /min Aura Wagner MD Work Phone: [facility] 10-26-2024 12:02-0400 Respiratory rate 31 /min Aura Wagner MD Work Phone: [facility] 10-26-2024 12:02-0400 SaO2% (BldA) [Mass fraction] 90 % Aura Wagner MD Work Phone: [email or web address] 10-26-2024 12:02-0400 Systolic blood pressure 158 mm[Hg] Aura Wagner MD Work Phone: [email or web address] 10-26-2024 12:00-0400 Body temperature 98.2 [degF] Aura Wagner MD Work Phone: [facility] 10-25-2024 00:00-0400 Body mass index (BMI) [Ratio] 39.56 kg/m2 Aura Wagner MD Work Phone: [facility] 10-25-2024 00:00-0400 Body weight 121.5 kg Aura Wagner MD Work Phone: [facility] 10-24-2024 20:56-0400 SaO2% (BldA) [Mass fraction] 98 % Aura Wagner MD Work Phone: [facility] 10-24-2024 19:42-0400 Body height 175.3 cm Aura Wagner MD Work Phone: [facility] 08-10-2024 13:00-0500 Body height 175.3 cm Lois Hoang MD Work Phone: [facility] 08-10-2024 13:00-0500 Body mass index (BMI) [Ratio] 38.03 kg/m2 Lois Hoang MD Work Phone: [facility] 08-10-2024 13:00-0500 Body weight 116.8 kg Lois Hoang MD Work Phone: [facility] 08-10-2024 13:00-0500 Diastolic blood pressure 90 mm[Hg] Lois Hoang MD Work Phone: [facility] 08-10-2024 13:00-0500 Heart rate 63 /min Lois Hoang MD Work Phone: [facility] 08-10-2024 13:00-0500 SaO2% (BldA) [Mass fraction] 97 % Lois Hoang MD Work Phone: [facility] 08-10-2024 13:00-0500 Systolic blood pressure 170 mm[Hg] Lois Hoang MD Work Phone: [facility] 07-14-2024 13:00-0500 Body height 175.3 cm [facility] 1 [facility] 07-14-2024 13:00-0500 Body mass index (BMI) [Ratio] 41.05 kg/m2 Pst 1 [facility] 07-14-2024 13:00-0500 Body temperature 97.5 [degF] Pst 1 [facility] 07-14-2024 13:00-0500 Body weight 126.1 kg Pst 1 [facility] 07-14-2024 13:00-0500 Diastolic blood pressure 80 mm[Hg] Pst 1 [facility] Comment on above: manual 07-14-2024 13:00-0500 Heart rate 68 /min Pst 1 [facility] 07-14-2024 13:00-0500 Respiratory rate 18 /min Pst 1 [facility] 07-14-2024 13:00-0500 SaO2% (BldA) [Mass fraction] 97 % Pst 1 [facility] 07-14-2024 13:00-0500 Systolic blood pressure 150 mm[Hg] Pst 1 [facility] Comment on above: manual 06-05-2024 09:08-0500 Body mass index (BMI) [Ratio] 44.71 kg/m2 Lois Hoang MD Work Phone: [facility] 06-05-2024 09:08-0500 Body weight 129.5 kg Lois Hoang MD Work Phone: [facility] 06-05-2024 09:08-0500 Diastolic blood pressure 84 mm[Hg] Lois Hoang MD Work Phone: [facility] 06-05-2024 09:08-0500 Heart rate 72 /min Lois Hoang MD Work Phone: [facility] 06-05-2024 09:08-0500 Respiratory rate 20 /min Lois Hoang MD Work Phone: [facility] 06-05-2024 09:08-0500 SaO2% (BldA) [Mass fraction] 96 % Lois Hoang MD Work Phone: [facility] 06-05-2024 09:08-0500 Systolic blood pressure 161 mm[Hg] Lois Hoang MD Work Phone: [facility] 05-10-2024 08:16-0400 Diastolic blood pressure 67 mm[Hg] Everton Sanchez MD Work Phone: [facility] 05-10-2024 08:16-0400 Heart rate 69 /min Everton Sanchez MD Work Phone: [facility] 05-10-2024 08:16-0400 Respiratory rate 18 /min Everton Sanchez MD Work Phone: [facility] 05-10-2024 08:16-0400 SaO2% (BldA) [Mass fraction] 98 % Everton Sanchez MD Work Phone: [facility] 05-10-2024 08:16-0400 Systolic blood pressure 156 mm[Hg] Everton Sanchez MD Work Phone: [facility] 04-26-2024 08:23-0400 Diastolic blood pressure 98 mm[Hg] Everton Sanchez MD Work Phone: [facility] 04-26-2024 08:23-0400 Heart rate 68 /min Everton Sanchez MD Work Phone: [facility] 04-26-2024 08:23-0400 Respiratory rate 18 /min Everton Sanchez MD Work Phone: [facility] 04-26-2024 08:23-0400 SaO2% (BldA) [Mass fraction] 98 % Everton Sanchez MD Work Phone: [facility] 04-26-2024 08:23-0400 Systolic blood pressure 178 mm[Hg] Everton Sanchez MD Work Phone: [facility] 04-06-2024 09:11-0400 Body height 170.2 cm Lois Hoang MD Work Phone: [facility] 04-06-2024 09:11-0400 Body mass index (BMI) [Ratio] 44.37 kg/m2 Lois Hoang MD Work Phone: [facility] 04-06-2024 09:11-0400 Body weight 128.5 kg Lois Hoang MD Work Phone: [facility] 04-06-2024 09:11-0400 Diastolic blood pressure 89 mm[Hg] Lois Hoang MD Work Phone: [facility] 04-06-2024 09:11-0400 Heart rate 74 /min Lois Hoang MD Work Phone: [facility] 04-06-2024 09:11-0400 Respiratory rate 18 /min Lois Hoang MD Work Phone: [facility] 04-06-2024 09:11-0400 SaO2% (BldA) [Mass fraction] 98 % Lois Hoang MD Work Phone: [facility] 04-06-2024 09:11-0400 Systolic blood pressure 154 mm[Hg] Lois Hoang MD Work Phone: [facility] 03-16-2024 11:16-0400 Diastolic blood pressure 77 mm[Hg] Everton Sanchez MD Work Phone: [facility] 03-16-2024 11:16-0400 Heart rate 71 /min Everton Sanchez MD Work Phone: [facility] 03-16-2024 11:16-0400 Respiratory rate 18 /min Everton Sanchez MD Work Phone: [facility] 03-16-2024 11:16-0400 SaO2% (BldA) [Mass fraction] 97 % Everton Sanchez MD Work Phone: [facility] 03-16-2024 11:16-0400 Systolic blood pressure 178 mm[Hg] Everton Sanchez MD Work Phone: [facility] 12-21-2023 19:11-0400 Body height 170.2 cm Yashira Gonsales APRN.PROFESSOR OF MARKETING Work Phone: [facility] 12-21-2023 19:11-0400 Body mass index (BMI) [Ratio] 43.54 kg/m2 Yashira Gonsales APRN.PROFESSOR OF MARKETING Work Phone: [facility] 12-21-2023 19:11-0400 Body weight 126.1 kg Yashira Gonsales CHRISTIANE Work Phone: [facility] 12-16-2023 10:56-0400 Diastolic blood pressure 89 mm[Hg] Dhiraj Herr MD Work Phone: [facility] 12-16-2023 10:56-0400 Heart rate 66 /min Dhiraj Herr MD Work Phone: [facility] 12-16-2023 10:56-0400 Respiratory rate 16 /min Dhiraj Herr MD Work Phone: [facility] 12-16-2023 10:56-0400 SaO2% (BldA) [Mass fraction] 97 % Dhiraj Herr MD Work Phone: [facility] 12-16-2023 10:56-0400 Systolic blood pressure 154 mm[Hg] Dhiraj Herr MD Work Phone: [facility] 11-11-2023 09:39-0400 Body height 170.2 cm Shelton Flores MD Work Phone: [facility] 11-11-2023 09:39-0400 Body mass index (BMI) [Ratio] 43.54 kg/m2 Shelton Flores MD Work Phone: [facility] 11-11-2023 09:39-0400 Body temperature 98.01 [degF] Shelton Flores MD Work Phone: [facility] 11-11-2023 09:39-0400 Body weight 126.1 kg Shelton Flores MD Work Phone: [facility] 11-11-2023 09:39-0400 Diastolic blood pressure 91 mm[Hg] Shelton Flores MD Work Phone: [facility] 11-11-2023 09:39-0400 Heart rate 75 /min Shelton Flores MD Work Phone: [facility] 11-11-2023 09:39-0400 Respiratory rate 20 /min Shelton Flores MD Work Phone: [facility] 11-11-2023 09:39-0400 SaO2% (BldA) [Mass fraction] 95 % Shelton Flores MD Work Phone: [facility] 11-11-2023 09:39-0400 Systolic blood pressure 163 mm[Hg] Shelton Flores MD Work Phone: [facility] 10-28-2023 10:03-0400 Diastolic blood pressure 94 mm[Hg] Dhiraj Herr MD Work Phone: [facility] 10-28-2023 10:03-0400 Heart rate 70 /min Dhiraj Herr MD Work Phone: [facility] 10-28-2023 10:03-0400 Respiratory rate 16 /min Dhiraj Herr MD Work Phone: [facility] 10-28-2023 10:03-0400 SaO2% (BldA) [Mass fraction] 96 % Dhiraj Herr MD Work Phone: [facility] 10-28-2023 10:03-0400 Systolic blood pressure 151 mm[Hg] Dhiraj Herr MD Work Phone: [facility] 09-23-2023 08:06-0500 Heart rate 74 /min Bertha Prebish PROCESS TRAINER.PROFESSOR OF MARKETING Work Phone: [facility] 09-23-2023 08:06-0500 Respiratory rate 20 /min Bertha Prebish PROCESS TRAINER.PROFESSOR OF MARKETING Work Phone: [facility] 09-23-2023 08:06-0500 SaO2% (BldA) [Mass fraction] 99 % Bertha Prebish PROCESS TRAINER.PROFESSOR OF MARKETING Work Phone: [facility] 03-22-2022 12:55-0400 Heart rate 84 /min [facility] Work Phone: 03-22-2022 12:55-0400 Respiratory rate 17 /min [facility] Work Phone: 03-22-2022 12:55-0400 SaO2% (BldA) [Mass fraction] 99 % [facility] Work Phone: 03-22-2022 11:13-0400 Body height 175.26 cm [facility] Work Phone: 03-22-2022 11:13-0400 Body mass index (BMI) [Ratio] 36 kg/m2 [facility] Work Phone: 03-22-2022 11:13-0400 Body temperature 97.4 [degF] [facility] Work Phone: 03-22-2022 11:13-0400 Body weight 110.7 kg [facility] Work Phone: 03-22-2022 11:13-0400 Diastolic blood pressure 77 mm[Hg] [facility] Work Phone: 03-22-2022 11:13-0400 Systolic blood pressure 160 mm[Hg] [facility] Work Phone: Encounters Encounter Date Encounter Type Care Provider Facility Start: 03-08-2025 End: 03-09-2025 Telephone encounter Rosa Garcia RN [facility] Comment on above: Update Provider Request Prescription Clarifi cation Start: 03-06-2025 End: 03-06-2025 Telephone encounter Mayank Dalton RN [facility] Comment on above: Care Coordination Start: 03-04-2025 Non-patient / Non-visit Dr. Carlie Parker [facility] Work Phone: Start: 03-03-2025 Non-patient / Non-visit Dr. Carlie Parker [facility] Work Phone: Start: 03-02-2025 Non-patient / Non-visit Dr. Sahu [facility] Work Phone: Start: 03-01-2025 Non-patient / Non-visit Dr. Sahu [facility] Work Phone: Start: 02-28-2025 ambulatory Lavinia Kee Facility:[facility] Start: 02-28-2025 Non-patient / Non-visit Dr. Lavinia quinones MD -[facility] Start: 02-28-2025 Non-patient / Non-visit Dr. Benitez Maya [facility] Work Phone: Start: 02-27-2025 ambulatory Mechelle Baptiste ty:[facility] Start: 02-27-2025 End: 03-05-2025 Evaluation and management of [facility] Start: 02-01-2025 End: 02-01-2025 Telephone encounter Veronica Butt APRN-PROFESSOR OF MARKETING [facility] Comment on above: PFT Appt Start: 01-08-2025 End: 01-08-2025 Office outpatient visit 40 minutes Veronica Butt APRN-PROFESSOR OF MARKETING Work Phone: [email or web address] Comment on above: Reactive airway dise ase without complication, unspecified asthma severity, unspecified whether persistent (HCC) (Primary Dx); Pulmonary nodule seen on imaging study; Environmental and seasonal allergies; Tobacco use disorder; Body mass index (BMI) 39.0-39.9, adult Start: 01-08-2025 End: 01-08-2025 ambulatory PRECIOUS LLOYD Facility:[facility] Start: 12-25-2024 End: 12-25-2024 Letter encounter Malena Alejandro RN [facility] Start: 12-25-2024 End: 12-25-2024 Telephone encounter Malena Alejandro RN [facility] Comment on above: APPOINTMENT SCHEDULI NG Start: 12-07-2024 End: 12-07-2024 Evaluation and management of inpatient PROVIDER NON-EPICCARE Facility:[facility] Start: 12-02-2024 End: 12-02-2024 Emergency department patient visit Davie Carroll MD Work Phone: [facility] Emergency Medicine Comment on above: Headache (JIN x24 hrs w/ vision changes ) Start: 12-02-2024 ambulatory PROVIDER NON-EPICCARE Facility:[facility] Start: 12-02-2024 Emergency department patient visit PROVIDER NON-EPICCARE Facility:[facility] Start: 11-24-2024 End: 11-24-2024 ambulatory Brooke Wu RN [facility] Care Management/Patient Access Comment on above: COPD FU CALL-CONTACT REACHED Start: 11-17-2024 End: 11-18-2024 Office outpatient new 45 minutes Anna Sanders PA-C Work Phone: [facility] Comment on above: COPD exacerbation (H CC) (Primary Dx); 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 artery (HCC); Gastroesophageal reflux disease with esophagitis without hemorrhage Start: 11-17-2024 End: 11-18-2024 ambulatory Brooke Wu RN [facility] Care Management/Patient Access Comment on above: COPD FU CALL-UNABLE TO LEAVE MESSAGE Start: 11-01-2024 End: 11-01-2024 Telephone encounter Karthik Fried RT [facility] Cardiopulmonary Rehabilitation Comment on above: Pulm Rehab referral Start: 10-27-2024 End: 10-27-2024 ambulatory Brooke Wu RN [facility] Care Management/Patient Access Start: 10-27-2024 End: 10-27-2024 Follow-up encounter Brooke Wu RN [facility] Care Management/Patient Access Comment on above: Hospital follow-up; Transitional Care Management (COPD DC 10/26/24) Start: 10-26-2024 End: 10-26-2024 Orders Only Aura Wagner MD Work Phone: [facility] Pulmonary Start: 10-25-2024 End: 12-25-2024 Follow-up encounter [facility] Start: 10-24-2024 End: 10-26-2024 Evaluation and management of inpatient Aura Wagner MD Work Phone: [address] Comment on above: COPD exacerbation (H CC) (Primary Dx); 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 artery (HCC); Exacerbation of intermittent asthma, unspecified asthma severity (HCC); Difficulty walking; Decreased mobility and endurance Start: 10-24-2024 End: 10-24-2024 Emergency department patient visit [facility] Facility:[facility] Start: 10-24-2024 Evaluation and management of inpatient BRIAN ANGLIN Facility:[facility] Start: 09-12-2024 End: 09-12-2024 ambulatory Varun Sahni PT Work Phone: [facility] Physical [facility] Comment on above: S/P lumbar laminecto my (Primary Dx) Start: 09-05-2024 End: 09-05-2024 Telephone encounter Lois Hoang MD Work Phone: [facility] Start: 08-28-2024 End: 08-28-2024 Telephone encounter Lois Hoang MD Work Phone: [facility] Comment on above: Internal Referrals/r esources Start: 08-25-2024 End: 08-25-2024 Orders Only Lois Hoang MD Work Phone: [facility] Comment on above: S/P lumbar laminecto my (Primary Dx) Start: 08-10-2024 End: 08-10-2024 Postop follow up visit related to original px Lois Hoang MD Work Phone: [facility] Comment on above: S/P lumbar laminecto my (Primary Dx) Start: 08-10-2024 End: 08-10-2024 ambulatory [facility] Facility:[facility] Start: 08-02-2024 End: 08-02-2024 Refill Lois Hoang MD Work Phone: [facility] Comment on above: Refill Request Start: 07-28-2024 End: 07-29-2024 Evaluation and management of inpatient [facility] Facility:[facility] Start: 07-27-2024 End: 01-09-2025 Telephone encounter Lois Hoang MD Work Phone: [facility] Comment on above: Preparations For Sukhjinder jen Start: 07-20-2024 End: 07-21-2024 Telephone encounter Shelton Flores MD Work Phone: Pulmonary Medicine Comment on above: Medical Clearance Start: 07-17-2024 End: 07-17-2024 Telephone encounter Polly Mcfarlane APRN.PROFESSOR OF MARKETING Work Phone: [facility] Start: 07-14-2024 End: 07-14-2024 Preprocedural examination done Pst 1 [facility] Work Phone: Start: 07-14-2024 End: 07-14-2024 Orders Only Lois Hoang MD Work Phone: [facility] Comment on above: Spinal stenosis of [...] [M48.062] Start: 07-10-2024 Preprocedural examination done Lois Hoang MD Work Phone: [facility] Start: 07-10-2024 [facility] Start: 06-21-2024 End: 06-21-2024 Telephone encounter Lois Hoang MD Work Phone: [facility] Comment on above: Preparations For Sukhjinder jen Start: 06-19-2024 End: 06-19-2024 Orders Only Lois Hoang MD Work Phone: [facility] Comment on above: Spinal stenosis of l umbar region with neurogenic claudication (Primary Dx) Start: 06-08-2024 End: 06-08-2024 Telephone encounter Shelton Flores MD Work Phone: Pulmonary Medicine Comment on above: FYI-No Action Needed Start: 06-08-2024 End: 06-08-2024 ambulatory [facility] Facility:[facility] Start: 06-08-2024 End: 06-08-2024 Subsequent hospital visit by physician [facility] Wstr (I-Stat) Work Phone: Cat Scan Start: 06-05-2024 End: 06-05-2024 Office outpatient visit 25 minutes Lois Hoang MD Work Phone: [facility] Comment on above: Spinal stenosis of l umbar region with neurogenic claudication (Primary Dx) Start: 06-05-2024 End: 06-05-2024 [facility] Facility[facility] Start: 06-05-2024 End: 06-05-2024 Subsequent hospital visit by physician Xr [place] [facility] [employer] [facility] [employer] Comment on above: Low back pain, unspe cified back pain laterality, unspecified chronicity, unspecified whether sciatica present [M54.50] Start: 05-31-2024 End: 05-31-2024 Telephone encounter Shelton Flores MD Work Phone: Pulmonary Medicine Comment on above: FYI-No Action Needed Start: 05-11-2024 End: 05-11-2024 ambulatory [facility] Facility:[facility] Start: 05-11-2024 End: 05-11-2024 Patient encounter procedure Bertha Kaur PROCESS TRAINER.PROFESSOR OF MARKETING Work Phone: [facility] Comment on above: APPOINTMENT CANCELLE D (Primary Dx) Start: 05-11-2024 End: 05-11-2024 Telemedicine consultation with patient Bertha Prebish PROCESS TRAINER.PROFESSOR OF MARKETING Work Phone: [facility] Start: 05-10-2024 End: 05-10-2024 Patient encounter procedure Everton Sanchez MD Work Phone: [facility] Start: 05-10-2024 End: 05-10-2024 ambulatory Everton Sanchez MD Work Phone: [facility] Comment on above: Injections (MBB); Ba ck Pain (LOWER BILATERAL) Start: 04-27-2024 End: 04-27-2024 Telemedicine consultation with patient Bertha Kaur PROCESS TRAINER.PROFESSOR OF MARKETING Work Phone: [facility] Start: 04-27-2024 End: 04-27-2024 ambulatory Bertha Kaur PROCESS TRAINER.PROFESSOR OF MARKETING Work Phone: [facility] Comment on above: Lumbar spondylosis ( Primary Dx); Spinal stenosis, lumbar region, without neurogenic claudication Start: 04-27-2024 End: 04-28-2024 Telephone encounter Guanaco Razo MD, PhD Work Phone: [facility] Comment on above: Erroneous encounter- disregard Start: 04-26-2024 End: 04-26-2024 Patient encounter procedure Everton Sanchez MD Work Phone: [facility] Start: 04-26-2024 End: 04-26-2024 ambulatory Everton Sanchez MD Work Phone: [facility] Comment on above: Procedure (MBB) Start: 04-06-2024 End: 04-06-2024 Office outpatient new 45 minutes Lois Hoang MD Work Phone: [facility] Comment on above: Low back pain, unspe cified back pain laterality, unspecified chronicity, unspecified whether sciatica present (Primary Dx) Start: 04-06-2024 End: 04-06-2024 ambulatory [facility] Facility:[facility] Start: 04-05-2024 End: 04-05-2024 E-mail encounter from caregiver Lois Hoang MD Work Phone: [facility] Start: 04-05-2024 End: 04-05-2024 Patient encounter procedure Lois Hoang MD Work Phone: [facility] Comment on above: xrays for upcoming a ppointment Start: 03-31-2024 End: 03-31-2024 Telephone encounter Dhiraj Herr MD Work Phone: [facility] Comment on above: injection questions Start: 03-30-2024 End: 03-30-2024 Telephone encounter Dhiraj Herr MD Work Phone: [facility] Comment on above: Appointment Start: 03-30-2024 End: 03-30-2024 Telemedicine consultation with patient Bertha Vincent ESTRADA.PROFESSOR OF MARKETING Work Phone: [facility] Start: 03-30-2024 End: 03-30-2024 ambulatory Bertha Kaur APRN.PROFESSOR OF MARKETING Work Phone: [facility] Comment on above: Lumbar spondylosis ( Primary Dx); Lumbar radiculopathy; Spinal stenosis, lumbar region, without neurogenic claudication Start: 03-17-2024 End: 03-17-2024 Telephone encounter Everton Sanchez MD Work Phone: [facility] Comment on above: Procedure Follow Up Start: 03-16-2024 End: 03-16-2024 Telephone encounter Bertha Kaur APRN.PROFESSOR OF MARKETING Work Phone: [facility] Comment on above: Orders Start: 03-16-2024 End: 03-16-2024 Patient encounter procedure Everton Sanchez MD Work Phone: [facility] Start: 03-16-2024 End: 03-16-2024 ambulatory Everton Sanchez MD Work Phone: [facility] Comment on above: Procedure Start: 03-15-2024 End: 03-15-2024 Telephone encounter Everton Sanchez MD Work Phone: [facility] Comment on above: Patient Question Start: 03-13-2024 End: 03-13-2024 Telephone encounter Yashira Gonsales APRN.PROFESSOR OF MARKETING Work Phone: [facility] Comment on above: Insurance Denial Start: 02-25-2024 Telephone encounter Bertha Catherine PROCESS TRAINER.PROFESSOR OF MARKETING Work Phone: [facility] Comment on above: Appointment anticoagulation marta er Injections (question s) Start: 02-24-2024 End: 02-24-2024 Telemedicine consultation with patient Bertha Kaur PROCESS TRAINER.PROFESSOR OF MARKETING Work Phone: [facility] Start: 02-24-2024 End: 02-24-2024 ambulatory Bertha Kaur PROCESS TRAINER.PROFESSOR OF MARKETING Work Phone: [facility] Comment on above: Lumbar spondylosis ( Primary Dx); Spinal 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; Chronic bilateral low back pain with sciatica, sciatica laterality unspecified Start: 01-24-2024 ambulatory Bertha Kaur PROCESS TRAINER.PROFESSOR OF MARKETING Work Phone: [facility] Comment on above: Denial of Medical Se rvice Start: 01-17-2024 Telephone encounter Shelton Flores MD Work Phone: Pulmonology [facility] Comment on above: Illness (Witmer RN covering urgent pulm sypmtom calls) Start: 01-16-2024 End: 01-16-2024 Letter encounter [facility] Start: 01-11-2024 Refill Shelton Flores MD Work Phone: Pulmonary Medicine Comment on above: Refill Request Start: 01-06-2024 Refill Shelton Flores MD Work Phone: Pulmonary Medicine Comment on above: Refill Request Start: 01-03-2024 Telephone encounter Alen raza MD Work Phone: Pulmonary Medicine Comment on above: Results Start: 12-29-2023 ambulatory [facility] ty:[facility] Start: 12-29-2023 End: 12-29-2023 Subsequent hospital visit by physician [facility] Work Phone: [facility] Comment on above: Lung nodules [R91.8] Start: 12-22-2023 End: 12-22-2023 Telemedicine consultation with patient Yashira Gonsales PROCESS TRAINER.PROFESSOR OF MARKETING Work Phone: [facility] Start: 12-22-2023 End: 12-22-2023 ambulatory Yashira Gonsales PROCESS TRAINER.PROFESSOR OF MARKETING Work Phone: [facility] Comment on above: Lumbar spondylosis ( Primary Dx) Start: 12-17-2023 Telephone encounter Dhiraj Herr MD Work Phone: [facility] Comment on above: Procedure Follow Up (MBB) Start: 12-16-2023 End: 12-16-2023 Patient encounter procedure Dhiraj Herr MD Work Phone: [facility] Start: 12-16-2023 End: 12-16-2023 ambulatory Dhiraj Herr MD Work Phone: [facility] Comment on above: Procedure (Mbb ); Ba ck Pain (Lower - bilateral - right is worse) Start: 12-14-2023 Telephone encounter Bertha Prekirstin rees PROCESS TRAINER.PROFESSOR OF MARKETING Work Phone: [facility] Comment on above: Insurance Denial Start: 12-10-2023 Orders Only Shelton Flores MD Work Phone: Pulmonary Medicine Comment on above: Severe persistent as thma, unspecified whether complicated (Primary Dx) Start: 12-01-2023 End: 12-02-2023 ambulatory [facility] Facility:[facility] Start: 11-29-2023 ambulatory Bertha Prebish PROCESS TRAINER.PROFESSOR OF MARKETING Work Phone: [facility] Start: 11-29-2023 Patient encounter procedure Bertha Prebish PROCESS TRAINER.PROFESSOR OF MARKETING Work Phone: [facility] Comment on above: Appointment Start: 11-25-2023 End: 11-25-2023 Telemedicine consultation with patient Bertha Prebish PROCESS TRAINER.PROFESSOR OF MARKETING Work Phone: [facility] Start: 11-25-2023 End: 11-25-2023 ambulatory Bertha Kaur PROCESS TRAINER.PROFESSOR OF MARKETING Work Phone: [facility] Comment on above: Lumbar spondylosis ( Primary Dx); Spinal 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 Start: 11-22-2023 ambulatory [facility] Comment on above: Home Sleep Study Start: 11-22-2023 E-mail encounter raya saunders caregiver [facility] Neu[facility] Start: 11-21-2023 Telephone encounter Bertha rees PROCESS TRAINER.PROFESSOR OF MARKETING Work Phone: [facility] Start: 11-19-2023 End: 11-19-2023 Subsequent hospital visit by physician Elizabeth [facility] Andres (I-Stat/1.5t) Radiology Comment on above: Spinal stenosis of l umbar region without neurogenic claudication [M48.061] Start: 11-11-2023 E-mail encounter raya saunders caregiver Pilar Pitts PA-C Work Phone: Radiology Start: 11-11-2023 Follow-up encounter Pilar delacruz PA-C Work Phone: Radiology Comment on above: Actionable Findings Follow-Up Start: 11-11-2023 End: 11-11-2023 Patient encounter procedure Shelton Flores MD Work Phone: Pulmonary Medicine Comment on above: Lung nodules (Primar y Dx); Severe persistent asthma, unspecified whether complicated; Tobacco use disorder; Morbid obesity (HCC) Start: 10-29-2023 End: 10-29-2023 ambulatory Bertha Kaur PROCESS TRAINER.PROFESSOR OF MARKETING Work Phone: [facility] Comment on above: Lumbar spondylosis ( Primary Dx); Chronic bilateral low back pain with sciatica, sciatica laterality unspecified; Spinal 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 Start: 10-29-2023 End: 10-29-2023 Telemedicine consultation with patient Bertha Kaur APRN.PROFESSOR OF MARKETING Work Phone: [facility] [address] Start: 10-28-2023 End: 10-28-2023 ambulatory Dhiraj Herr MD Work Phone: [facility] Comment on above: Procedure (MBNB L4/L 5 S1) Start: 10-28-2023 End: 10-28-2023 Patient encounter procedure Dhiraj Herr MD Work Phone: [facility] Start: 10-19-2023 Refill Shelton Flores MD Work Phone: Pulmonary Medicine Comment on above: Refill Request Start: 10-11-2023 Refill Shelton Flores MD Work Phone: Pulmonary Medicine Comment on above: Refill Request Start: 09-28-2023 ambulatory Bertha Prebish PROCESS TRAINER.PROFESSOR OF MARKETING Work Phone: [facility] Comment on above: Prednisone for pain relief Start: 09-23-2023 Telephone encounter Berthavikki rees PROCESS TRAINER.PROFESSOR OF MARKETING Work Phone: [facility] Comment on above: Injection Questions Start: 09-23-2023 End: 09-23-2023 Office outpatient new 45 minutes Bertha Prebish PROCESS TRAINER.PROFESSOR OF MARKETING Work Phone: [facility] Comment on above: Lumbar spondylosis ( Primary Dx); Chronic bilateral low back pain with sciatica, sciatica laterality unspecified Start: 09-02-2023 ambulatory UNKNOWN PROVIDER Facili ty:[facility] Start: 09-02-2023 End: 09-02-2023 Subsequent hospital visit by physician Ct [facility] Radiology Comment on above: Wheezing [R06.2] Start: 09-02-2023 End: 09-02-2023 ambulatory Pulm Work Phone: Pulmonary Medicine Comment on above: Spirometry Start: 09-02-2023 End: 09-02-2023 Patient encounter procedure Pulm [facility] Work Phone: [facility] Start: 08-26-2023 Telephone encounter Shelton Flores MD Work Phone: Pulmonary Medicine Comment on above: Results Start: 08-24-2023 Telephone encounter Shelton Flores MD Work Phone: Pulmonary Medicine Comment on above: FYI-No Action Needed Results Start: 08-20-2023 Telephone encounter Shelton Flores MD Work Phone: Pulmonary Medicine Comment on above: FYI-No Action Needed Start: 08-20-2023 End: 08-20-2023 ambulatory [facility] [place] Work Phone: Pulmonary Medicine Comment on above: Spirometry Start: 08-20-2023 End: 08-20-2023 Patient encounter procedure [facility] [place] Work Phone: [facility] Start: 08-04-2023 End: 08-04-2023 ambulatory [facility] Work Phone: Start: 08-04-2023 End: 08-04-2023 Patient encounter procedure [facility]-Radiology, [facility] Work Phone: Start: 06-11-2023 Registered Recurring [facility] Work Phone: Start: 02-20-2023 End: 02-20-2023 ambulatory [facility] Work Phone: Start: 02-20-2023 End: 02-20-2023 Patient encounter procedure [facility]-Laboratory Work Phone: Start: 10-26-2022 Letter encounter Edgardo luna Start: 03-22-2022 End: 03-22-2022 Emergency department patient visit [facility]-Emergency Department Start: 02-07-2022 End: 02-07-2022 Patient encounter procedure [facility]Labor[facility] Start: 01-31-2022 End: 01-31-2022 Patient encounter procedure [facility] Start: 10-20-2021 Letter encounter Edgardo cabezas Procedures Date Procedure Procedure Detail Performing Clinician Start: 03-03-[address] Austin Perez DO Work Phone: Start: 03-02-[address] Austin Perez DO Work Phone: Start: 03-01-2025 Carbon dioxide measu rement, partial pressure Dr. Austin Perez DO Work Phone: Start: 03-01-2025 Gases blood o2 satur ation only direct sidra Dr. Austin Perez DO Work Phone: Start: 03-01-2025 Measurement of parti al pressure of oxygen in blood Dr. Austin Perez DO Work Phone: Start: 03-01-[address] Austin Perez DO Work Phone: Start: 03-01-2025 Plain chest X-ray Dr. Rubina Perez DO Work Phone: Start: 02-28-2025 CT angiography of ch est with contrast Dr. Austin Perez DO Work Phone: Start: 02-28-2025 D-dimer assay, quantitative Dr. Austin Perez DO Work Phone: Comment on above: D-Dimer ELEVATED (>0 .49): Additional studies and clinicalassessments are indicated to conclude diagnosis of:Deep Vein Thrombosis (DVT) or Pulmonary Embolism (PE)CRITICAL VALUE CALLED TO MAKEDA TAPIA (ED)02/28/25 181 Radha Jiménez.RESULTS READ BACK BY SAME.CRITICAL VALUE CALLED TO CHRISTIN PALAFOX (ICU)02/28/25 182 Radha Jiménez.RESULTS READ BACK BY SAME. Previous reported result: 2.78 FEU/ug/mEdited by: LEISA on 02/28/25:1827 AMENDED REPORT 02/28/25 1827 D-DIMER QUANT previously reported as: 2.78 *H FEU/ug/m D-Dimer ELEVATED (>0.49): Additional studies and clinicalassessments are indicated to conclude diagnosis of:Deep Vein Thrombosis (DVT) or Pulmonary Embolism (PE)CRITICAL VALUE CALLED TO MAKEDA STARKG002/28/25 181 Radha Jiménez.RESULTS READ BACK BY SAME. Start: 02-28-[address] Austin Perez DO Work Phone: Start: 02-28-2025 Legionella pneumophi la antigen assay Dr. Austin Perez DO Work Phone: Start: 02-28-2025 Sars-cov-2 Dr. Austin Perez DO Work Phone: Start: 02-28-2025 End: 02-28-2025 Streptococcus pneumoniae antigen assay Dr. Austin Perez DO Work Phone: Start: 02-28-2025 Serum inorganic phos phate measurement Dr. Austin Perez DO Work Phone: Start: 02-28-2025 Plain chest X-ray Dr. Rubina Perez DO Work Phone: Start: 02-27-2025 MRI of brain with contrast Dr. Austin Perez DO Work Phone: Start: 02-27-[address] Austin Perez DO Work Phone: Start: 02-27-[address] Austin Perez DO Work Phone: Start: 02-27-2025 Measurement of Borre harley burgdorferi antibody Dr. Austin Perez DO Work Phone: Comment on above: Lyme antibodies not detected. Reflex testing is notindicated.No laboratory evidence of infection with B. burgdorferi(Lyme disease). Negative results may occur in patientsrecently infected (less than or equal to 14 days) with B.burgdorferi. If recent infection is suspected, repeattesting on a new sample collected in 7 to 14 days isrecommended.Performed at: [address] [id number] Director: Tang Loyola PhD, Phone: [phone] Start: 02-27-2025 Osmolality measurement, serum Dr. Austin Perez DO Work Phone: Start: 02-27-2025 Computed tomography of abdomen and pelvis with intravenous contrast Dr. Austin Perez DO Work Phone: Start: 02-27-2025 CT of chest without contrast Dr. Austin Perez DO Work Phone: Start: 02-27-2025 Methadone measurement, urine Dr. Austin Perez DO Work Phone: Start: 02-26-[address] Austin Perez DO Work Phone: Start: 02-26-2025 X-ray of chest, PA a nd lateral views Dr. Austin Perez DO Work Phone: Start: 02-26-2025 X-ray of knee, four or more views Dr. Austin Perez DO Work Phone: Start: 02-26-2025 CT cervical spine wi thout contrast Dr. Austin Perez DO Work Phone: Start: 02-26-2025 CT of head without contrast Dr. Austin Perez DO Work Phone: Start: 02-26-[address] Austin Perez DO Work Phone: Start: 02-26-2025 Urnls dip stick/tabl et reagent auto microscopy Dr. Austin Perez DO Work Phone: Start: 02-26-[address] Austin Perez DO Work Phone: Start: 02-26-[address] Austin Perez DO Work Phone: Start: 01-08-2025 Assay of gammaglobulin ige Veronica Butt PROCESS TRAINER-PROFESSOR OF MARKETING Work Phone: Start: 01-08-2025 Inhaled allergen mix RAST Veronica Butt APRN-PROFESSOR OF MARKETING Work Phone: Start: 12-02-2024 Ct angiography head w/contrast/noncontrast Padmini Fisher MD Work Phone: Start: 12-02-2024 Radiologic exam chest 2 views Elvis Rodriguez MD Work Phone: [...] Work Phone: Start: 07-14-2024 Antibody screen BERTHA GLASS Comment on above: Order Comment: Speci men Type: BLOOD SPECIMEN Ordering Facility: [facility] Address: [address] [place] [address] Performed By: #### T [id number] #### [facility] CLIA [id number] [place] [address] [place] Start: 06-08-2024 Ct thorax w/o contra st material [facility] Provider Start: 12-29-2023 Echo tthrc r-t 2d w/ wom-mode compl spec&colr d Shelton Flores MD Work Phone: Start: 11-19-2023 Mri spinal canal lum bar w/o contrast material Bertha Kaur APRN.PROFESSOR OF MARKETING Work Phone: Start: 09-02-2023 Nitric oxide gas determination Shelton Flores MD Work Phone: Start: 09-02-2023 Co diffusing capacity Tim ribera Ruben Flores MD Work Phone: Start: 08-20-2023 Brncdilat rspse spmt ry pre&post-brncdilat admn Shelton Flores MD Work Phone: Start: 08-04-2023 Plain chest X-ray Start: 03-22-2022 Plain x-ray of hand Start: 03-22-2022 Plain x-ray of wrist Start: 04-24-2019 Lipid 1996 panel - S tara or Plasma [facility] [place] Work Phone: Plan of Treatment Date Care Activity Detail Author Start: 06-14-2033 Tetanus vaccination Tetanus (Td or Tdap) Booster [facility] Start: 06-14-2033 Urine microalbumin profile DTaP,Tdap,Td Vaccine (2 - Td or Tdap) [facility] Start: 02-21-2028 Lipid panel Cholesterol [facility] Start: 10-26-2027 Diabetes Screening Diabetes Screening [facility] Start: 07-29-2027 Diabetes Screening Diabetes Screening [facility] Start: 07-14-2027 Diabetes Screening Diabetes Screening [facility] Start: 12-01-2026 Diabetes Screening Diabetes Screening [facility] Start: 10-24-2025 Hemoglobin A1c measurement Hemoglobin A1C [facility] Start: 07-23-2025 End: 07-23-2025 Patient encounter procedure 07/23/2025 8:20 AM EST Office Visit [facility] [address] [id number] Veronica Butt APRN-PROFESSOR OF MARKETING [address] [place] [address] [facility] Start: 05-21-2025 End: 05-21-2025 Patient encounter procedure 05/21/2025 8:00 AM EST Appointment [facility] Radiology CT [address] [employer] [place] [address] [facility] [address] Start: 05-19-2025 End: 01-08-2026 CT Chest WO contrast CT CHEST W/O CONTRAST Imaging Routine Pulmonary nodule seen on imaging study Expected: 05/19/2025 (Approximate), Expires: 01/08/2026 [facility] Work Phone: Comment on above: Expected: 05/19/2025 (Approximate), Expi res: 01/08/2026 Start: 04-18-2025 Influenza vaccination Influenza Vaccine (#1) [facility] Start: 03-19-2025 Influenza vaccination Influenza Vaccine (Season Ended) [facility] Start: 03-05-2025 Referral to service [facility] Start: 03-05-2025 Patient discharge [facility] Start: 03-03-2025 Care planning and problem solving actions [facility] Start: 03-03-2025 [facility] Start: 03-01-2025 Consultation [facility] Start: 02-28-2025 [facility] Start: 02-28-2025 Care planning and problem solving actions [facility] Start: 02-28-2025 Speech therapy assessment [facility] Start: 02-28-2025 Care planning and problem solving actions [facility] Start: 02-27-2025 Referral to occupational therapist [facility] Start: 02-27-2025 Referral to service [facility] Start: 02-27-2025 Implementation of planned interventions [facility] Start: 02-27-2025 Oxygen therapy [facility] Start: 02-27-2025 Aspiration precautions [facility] Start: 02-27-2025 Application of intermittent pneumatic compression device [facility] Start: 02-27-2025 Following clinical pathway protocol [facility] Start: 02-27-2025 Cardiac monitoring [facility] Start: 02-27-2025 Catheterization of vein [facility] Start: 02-27-2025 Notification of physician [facility] Start: 02-27-2025 Vital signs measurements [facility] Start: 02-27-2025 End: 02-28-2025 [facility] Start: 02-27-2025 Respiratory pathogens DNA and RNA panel - Respiratory specimen by YADIRA with probe detection [facility] Start: 02-27-2025 [facility] Start: 02-27-2025 Admission procedure [facility] Start: 02-27-2025 Hospital admission, emergency, from emergency room, medical nature [facility] Start: 02-27-2025 Computed tomography of abdomen and pelvis with intravenous contrast Abdomen/Pelvis W IV Cont ONLY [facility] Start: 02-27-2025 CT of chest without contrast Chest without Contrast [facility] Start: 02-27-2025 Inhalation therapy procedure [facility] Start: 02-26-2025 End: 02-26-2025 [facility] Start: 02-26-2025 Bacteria identified in Blood by Culture Blood Culture [facility] Start: 02-26-2025 Bacteria identified in Urine by Culture Urine Culture [facility] Start: 02-02-2025 End: 02-02-2025 Professional / ancillary services management 02/02/2025 8:00 AM EDT Pulmonary Ancillary Visit [facility] [address] [place] [address] [facility] Start: 01-18-2025 End: 01-18-2025 Patient encounter procedure 01/18/2025 9:40 AM EDT Office Visit [address] [address] Anna Sanders PA-C [address] [place] [address] [facility] Start: 01-08-2025 End: 01-08-2025 Patient encounter procedure 01/08/2025 10:20 AM EDT Office Visit [facility] [address] [place] [address] Veronica Butt APRN-NABOR [address] [place] [address] [facility] Start: 11-17-2024 End: 11-17-2024 Patient encounter procedure 11/17/2024 2:00 PM EDT Office Visit [address] [address] Anna Sanders PA-C [address] [place] [address] [facility] Start: 10-24-2024 Welcome to Medicare Visit (G0402) Welcome to Medicare Visit (G0402) [facility] Start: 10-19-2024 End: 10-19-2024 Patient encounter procedure [employer] Comment on above: S/P lumbar laminectomy [Z98.890] Start: 09-18-2024 End: 09-18-2024 Patient encounter procedure 09/18/2024 9:15 AM EST Office Visit [address] [place] [phone] Lois Hoang MD [address] [place] [address] [phone] post op [facility] Comment on above: post op Start: 09-14-2024 End: 09-14-2024 Patient encounter procedure 09/14/2024 2:15 PM EST Office Visit [address] [place] [phone] Lois Hoang MD [address] [place] [address] [phone] post op [facility] Comment on above: post op Start: 09-12-2024 End: 09-12-2024 ambulatory 09/12/2024 8:30 AM EST OT/PT/Speech Visit [facility] [address] [place] [address] Varun Sahni, PT [address] [place], [place] [phone] S/P lumbar laminectomy [Z98.890 [facility] Comment on above: S/P lumbar laminectomy [Z98.890 Start: 08-10-2024 End: 08-10-2024 Patient encounter procedure 08/10/2024 1:00 PM EST Office Visit [facility] [address] [facility] [place] [address] Lois Hoang MD [address] [place] [address] post op [facility] Comment on above: post op Start: 07-28-2024 End: 07-28-2024 Admission to same day surgery center 07/28/2024 10:45 AM EST - 07/28/2024 1:30 PM EST Surgery [place] [facility] OR 1 [facility] [place] [address] Lois Hoang MD [address] [place] [address] DECOMPRESSION LAMINECTOMY LUMBAR POSTERIOR LEVEL 1 [place] [...] EST Hospital Encounter [place] [facility] [place] [address] [place] [address] Lois Hoang MD [address] [place] [address] Spinal stenosis of lumbar region with neurogenic claudication [M48.062] [facility] Comment on above: Spinal stenosis of lumbar region with ne urogenic claudication [M48.062] Start: 07-19-2024 Advance Directive Discussion Advance Directive Discussion [facility] Start: 07-14-2024 End: 10-13-2024 aPTT in Platelet poor plasma by Coagulation assay ACTIVATED PARTIAL THROMBOPLASTIN TIME Lab Routine Spinal stenosis of lumbar region with neurogenic claudication Abnormal coagulation profile Expected: 07/14/2024, Expires: 10/13/2024 [facility] Comment on above: Expected: 07/14/2024, Expires: Start: 07-14-2024 End: 10-13-2024 Bacteria identified in Urine by Culture URINE CULTURE Microbiology Routine Spinal stenosis of lumbar region with neurogenic claudication Other abnormal findings in urine Expected: 07/14/2024, Expires: 10/13/2024 [facility] Comment on above: Expected: 07/14/2024, Expires: Start: 07-14-2024 End: 10-13-2024 CBC panel - Blood by Automated count COMPLETE BLOOD COUNT Lab Routine Spinal stenosis of lumbar region with neurogenic claudication Other specified abnormal findings of blood chemistry Expected: 07/14/2024, Expires: 10/13/2024 [facility] Comment on above: Expected: 07/14/2024, Expires: Start: 07-14-2024 End: 10-13-2024 Comprehensive metabolic 2000 panel - Serum or Plasma COMPREHENSIVE METABOLIC PANEL Lab Routine Spinal stenosis of lumbar region with neurogenic claudication Expected: 07/14/2024, Expires: 10/13/2024 [facility] Comment on above: Expected: 07/14/2024, Expires: Start: 07-14-2024 End: 10-13-2024 PT panel - Platelet poor plasma by Coagulation assay PROTHROMBIN TIME Lab Routine Spinal stenosis of lumbar region with neurogenic claudication Abnormal coagulation profile Expected: 07/14/2024, Expires: 10/13/2024 [facility] Comment on above: Expected: 07/14/2024, Expires: Start: 07-14-2024 End: 10-13-2024 STAPHYLOCOCCUS AUREUS & MRSA SCREEN, PCR, NASAL STAPHYLOCOCCUS AUREUS & MRSA SCREEN, PCR, NASAL Lab Routine Spinal stenosis of lumbar region with neurogenic claudication Expected: 07/14/2024, Expires: 10/13/2024 [facility] Comment on above: Expected: 07/14/2024, Expires: Start: 07-14-2024 End: 10-13-2024 TYPE AND SCREEN,30 DAY TYPE AND SCREEN,30 DAY Blood Bank Routine Spinal stenosis of lumbar region with neurogenic claudication Expected: 07/14/2024, Expires: 10/13/2024 [facility] Comment on above: Expected: 07/14/2024, Expires: Start: 07-14-2024 End: 10-13-2024 Urinalysis complete panel - Urine URINALYSIS, WITH MICROSCOPIC Lab Routine Spinal stenosis of lumbar region with neurogenic claudication Expected: 07/14/2024, Expires: 10/13/2024 [facility] Comment on above: Expected: 07/14/2024, Expires: Start: 07-14-2024 End: 07-14-2024 ambulatory 07/14/2024 1:00 PM EST PAT Pre Surgical Testing [address], [place] [id number] L2-L4 Laminectomy Pre Surgical Testing Comment on above: L2-L4 Laminectomy Start: 06-08-2024 End: 06-08-2024 Patient encounter procedure 06/08/2024 8:00 AM EST Appointment Cat Scan [address] [place], [place] [id number] CT chest w/o in scanned docs Cat Scan Comment on above: CT chest w/o in scanned docs Start: 06-06-2024 End: 06-06-2024 Patient encounter procedure [employer] Comment on above: XR LUMBAR 2 MO F/U Start: 06-05-2024 End: 06-05-2024 Patient encounter procedure [employer] Comment on above: XR LUMBAR 2 MO F/U XR LUMBAR AP/LAT/FLE X/EXT Start: 05-11-2024 End: 05-11-2024 Follow-up encounter 05/11/2024 3:15 PM EDT [facility] [address] [place] [address] Bertha Kaur, SEAN.PROFESSOR OF MARKETING [address] [place] [address] MBB follow up 2 of 2 [facility] Comment on above: MBB follow up 2 of 2 Start: 05-10-2024 End: 05-10-2024 ambulatory [facility] Comment on above: B/L MBNB L3-L4, L4-L5, w fluoro Medial Branch Block (Diagnostic only, NO STEROIDS) under fluoroscopic guidance BILATERAL SIDES at L3-4 and L4-5 (2 OF 2) Start: 04-27-2024 End: 04-27-2024 Follow-up encounter 04/27/2024 3:15 PM EDT [facility] [address] [place] [address] Bertha Kaur APRN.PROFESSOR OF MARKETING [address] [place] [address] MBB follow up 1 of 2 [facility] Comment on above: MBB follow up 1 of 2 Start: 04-26-2024 End: 04-26-2024 ambulatory 04/26/2024 7:50 AM EDT Procedure [facility] [address] [place], [place] [id number] Everton Sanchez MD [address] [place], [place] [address] B/L MBNB L3-L4, L4-L5, w fluoro [facility] Comment on above: B/L MBNB L3-L4, L4-L5, w fluoro Start: 04-24-2024 Lipid panel [facility] Start: 2024 Abdominal aortic aneurysm screening Abdominal Aortic Aneurysm Imaging [facility] Start: 2024 Advance Directive Discussion Advance Directive Discussion [facility] Start: 2024 Pneumococcal vaccination Pneumococcal Vaccine (3 of 3 - PPSV23 or PCV20) [facility] Start: 2024 Pneumococcal Vaccine: 65+ (3 of 3 - PPSV23 or PCV20) Pneumococcal Vaccine: 65+ (3 of 3 - PPSV23 or PCV20) [facility] Start: 04-06-2024 End: 04-06-2024 Patient encounter procedure 04/06/2024 9:30 AM EDT Office Visit [id number] [facility] [place] [phone] Lois Hoang MD [address] [place] [address] lower back pain [facility] Comment on above: lower back pain Start: 03-30-2024 End: 03-30-2024 Follow-up encounter [facility] Comment on above: Follow up from ANASTASIA FOLLOW UP FROM ILESI L4-L5 Start: 03-19-2024 Covid-19 Vaccine ( season) Covid-19 Vaccine ( season) [facility] Start: 03-19-2024 Covid-19 Vaccine ( season) Covid-19 Vaccine ( season) [facility] Start: 03-19-2024 Influenza vaccination [facility] Start: 03-16-2024 End: 03-16-2024 ambulatory [facility] Comment on above: PENDING - CAD ILESI L4-L5 W Fluoro; PLAV IX OKAY TO HOLD FOR 7 DAYS FC AUTH GOOD - CAD I LESI L4-L5 W Fluoro; PLAVIX OKAY TO HOLD FOR 7 DAYS Start: 02-10-2024 End: 02-10-2024 Patient encounter procedure 02/10/2024 9:15 AM EDT Office Visit Pulmonary Medicine [address] [place] [address] Shelton Flores MD [address] [place] [address] lung nodules 3 mos followup Pulmonary Medicine Comment on above: lung nodules 3 mos followup Start: 01-10-2024 End: 01-10-2024 Patient encounter procedure 01/10/2024 1:00 PM EDT Office Visit Allergy [address] [address] Anna Abbott MD [address] [place] [address] allergies Allergy Comment on above: allergies Start: 01-04-2024 End: 01-04-2024 Follow-up encounter 01/04/2024 1:45 PM EDT [facility] [place] [address] Catherine Champion, SEAN.PROFESSOR OF MARKETING [address] [place] [address] Follow up from MBB #2 [facility] Comment on above: Follow up from MBB #2 Start: 12-31-2023 End: 12-31-2023 ambulatory [facility] Comment on above: B/L MBNB L4-L5, L5-S1 w fluoro X2 PENDING - CAD B/L MB NB L4-L5, L5-S1 w fluoro; PLAVIX - NO HOLD NEEDED (2 OF 2) DENIED - CAD B/L MBN B L4-L5, L5-S1 w fluoro; PLAVIX - NO HOLD NEEDED (2 OF 2) Start: 12-29-2023 End: 12-29-2023 Patient encounter procedure [facility] Comment on above: Lung nodules [R91.8] Start: 12-22-2023 End: 12-22-2023 Follow-up encounter [facility] Comment on above: Follow up from MBB #1 Follow up from MBB # 1 (Please let Bertha know when this is completed so she can do the appeal letter) Start: 12-16-2023 End: 12-16-2023 ambulatory [facility] Comment on above: B/L MBNB L4-L5, L5-S1 w fluoro X2 AUTH GOOD - CAD B/L MBNB L4-L5, L5-S1 w fluoro; PLAVIX - NO HOLD NEEDED (1 OF 2) Start: 11-25-2023 End: 11-25-2023 Follow-up encounter 11/25/2023 2:15 PM EDT [facility] [address] [place] [address] Bertha Kaur APRN.PROFESSOR OF MARKETING [address] [place] [address] Follow up from MRI [facility] Comment on above: Follow up from MRI Start: 11-19-2023 End: 11-19-2023 Patient encounter procedure 11/19/2023 12:00 PM EDT Appointment Radiology [address] [facility] [place] [address] MRI LUMBAR SPINE WO IVCON Radiology Comment on above: MRI LUMBAR SPINE WO IVCON Start: 07-19-2023 Depression Assessment Depression Assessment [facility] Start: 03-19-2023 Covid-19 Vaccine ( season) Covid-19 Vaccine ( season) [facility] Start: 03-19-2023 Influenza vaccination [facility] Start: 06-04-2022 Pneumococcal vaccination Pneumococcal Vaccine(s) (50+ yrs) (3 of 3 - PCV20 or PCV21) [facility] Start: 06-04-2022 Pneumococcal Vaccine: 50+ (3 of 3 - PCV20 or PCV21) Pneumococcal Vaccine: 50+ (3 of 3 - PCV20 or PCV21) [facility] Start: 04-24-2022 Diabetes Screening Diabetes Screening [facility] Start: 2019 Hepatitis B (HBV) Vaccine (optional start 60+ years) Hepatitis B (HBV) Vaccine (optional start 60+ years) [facility] Start: 2019 RSV Vaccine (1 - 1-dose 60+ series) RSV Vaccine (1 - 1-dose 60+ series) [facility] Start: 2019 RSV Vaccine (1 - Risk 60-74 years 1-dose series) RSV Vaccine (1 - Risk 60-74 years 1-dose series) [facility] Start: 2019 RSV vaccine (adult) (1 - Risk 60-74 years 1-dose series) RSV vaccine (adult) (1 - Risk 60-74 years 1-dose series) [facility] Start: 2019 RSV vaccine (optional 60+ years) RSV vaccine (optional 60+ years) [facility] Start: 2014 Prostate specific antigen measurement Prostate Cancer Screening Discussion [facility] Start: 2009 Measurement of occult blood in single stool specimen FIT [facility] Start: 2009 Screening for malignant neoplasm of colon CRC Screening [facility] Start: 2009 Shingrix Vaccine (1 of 2) Shingrix Vaccine (1 of 2) [facility] Start: 2009 Varicella-zoster vaccine (product) Shingles (RZV) Vaccine (1 of 2) [facility] Start: 2004 Prostate specific antigen measurement Prostate Cancer Screening Discussion [facility] Start: 2004 Screening for malignant neoplasm of colon [facility] Start: 1989 Zoledronic acid therapy Alpha-1 Antitrypsin Deficiency Screening [facility] Start: 1978 Hepatitis A (HAV) Vaccine (optional start 19+ years) Hepatitis A (HAV) Vaccine (optional start 19+ years) [facility] Start: 1977 Annual PCP Team Chronic Disease Visit Annual PCP Team Chronic Disease Visit [facility] Start: 1977 Anxiety Screening Anxiety Screening [facility] Start: 1977 BP Controlled (<130/80) BP Controlled (<130/80) [facility] Start: 1977 Depression Screening Depression Screening [facility] Start: 1977 [facility]atitis C screening [facility] Start: 1977 HIV screening HIV Screening [facility] Start: 1977 Tetanus + diphtheria + acellular pertussis vaccine (product) [facility]ap [facility] Start: 1974 HIV screening HIV Test [facility] Start: 1964 COVID-19 Vaccine (1) COVID-19 Vaccine (1) [facility] Start: 1959 COVID-19 Vaccine (#1) COVID-19 Vaccine (#1) [facility] Start: 1959 Abdominal aortic aneurysm screening Abdominal Aortic Aneurysm Screening [facility] Start: 1959 Prostate specific antigen measurement Prostate Cancer Screening (shared decision making) [facility] Start: 1959 Screening for malignant neoplasm of colon Colonoscopy [facility] Assay of magnesium MAGNESIUM Lab Routine Daily until discontinued starting 10/25/2024, 2 completed [facility] Comment on above: Daily until discontinued starting 2024, 2 completed Basic metabolic 2000 panel - Serum or Plasma BASIC METABOLIC PANEL Lab Routine Daily until discontinued starting 10/25/2024, 2 completed [facility] [employer] [facility] Work Phone: Comment on above: Daily until discontinued starting 2024, 2 completed CBC W Auto Different ial panel - Blood COMPLETE BLOOD COUNT W/DIFF Lab Routine Daily until discontinued starting 10/25/2024, 2 completed [email or web address] Comment on above: Daily until discontinued starting 2024, [address] Chest WO contrast CT CHEST WO IVCON Radiology Routine Wheezing 09/02/2023 1:22 PM EST [facility] Work Phone: End: 12-10-2024 CT Chest WO contrast CT CHEST WO IVCON Radiology Routine Lung nodules 1 Occurrences starting 11/11/2023 until 12/10/2024 [facility] Work Phone: Comment on above: 1 Occurrences starting 11/11/2023 until 12/10/2024 CT Chest WO contrast CT CHEST WO IVCON Radiology Routine Lung nodules 12/29/2023 11:14 AM EDT [facility] Work Phone: End: 07-14-2025 ECG COMPLETE ECG COMPLETE ECG Routine Spinal stenosis of lumbar region with neurogenic claudication 1 Occurrences starting 07/14/2024 until 07/14/2025 [facility] Comment on above: 1 Occurrences starting 07/14/2024 until 07/14/2025 Ecg routine ecg w/le ast 12 lds trcg only w/o i&r EKG 12 LEAD - PERFORM MUSE Routine COPD exacerbation (HCC) Ordered: 10/26/2024 [email or web address] Comment on above: Ordered: 10/26/2024 End: 11-10-2024 Echocardiography ECHO Cardiology Routine Lung nodules Severe persistent asthma, unspecified whether complicated 1 Occurrences starting 11/11/2023 until 11/10/2024 [facility] Comment on above: 1 Occurrences starting 11/11/2023 until 11/10/2024 End: 10-24-2024 EXTRA TUBE EXTRA TUBE Lab Routine One time for 1 Occurrences starting 10/24/2024 until 10/24/2024 [facility] [facility] Work Phone: Comment on above: One time for 1 Occurrences starting 02/2025 until 10/24/2024 Folate [Moles/volume ] in Serum or Plasma [facility] H&P for surgery H&P FOR SURGERY Procedures Routine Spinal stenosis of lumbar region with neurogenic claudication Ordered: 07/14/2024 [facility] Work Phone: Comment on above: Ordered: 07/14/2024 End: 11-10-2024 HOME SLEEP APNEA TEST (HSAT) HOME SLEEP APNEA TEST (HSAT) Procedures Routine Lung nodules Severe persistent asthma, unspecified whether complicated 1 Occurrences starting 11/11/2023 until 11/10/2024 [facility] Comment on above: 1 Occurrences starting 11/11/2023 until 11/10/2024 INHALANT ALLERGEN PANEL INHALANT ALLERGEN PANEL Lab Routine Environmental and seasonal allergies 01/08/2025 11:28 AM EDT [facility] Lactic acid measurement [facility] LUNG DIFFUSION CAPAC ITY (DLCO) LUNG DIFFUSION CAPACITY (DLCO) PFT Routine Chronic obstructive pulmonary disease, unspecified COPD type (HCC) 09/02/2023 10:49 AM [employer] Work Phone: LUNG VOLUMES LUNG VOLUMES PFT Routine Chronic obstructive pulmonary disease, unspecified COPD type (HCC) 09/02/2023 10:49 AM [facility] Work Phone: End: 11-27-2024 MR Lumbar spine WO contrast MRI LUMBAR SPINE WO IVCON Radiology Routine Spinal 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 1 Occurrences starting 10/29/2023 until 11/27/2024 [facility] Work Phone: Comment on above: 1 Occurrences starting 10/29/2023 until 11/27/2024 Njx dx/ther agt pvrt facet jt lmbr/sac 1 level NJX DX/THER AGT PVRT FACET JT LMBR/SAC 1 LEVEL Procedures Routine Lumbar spondylosis Ordered: 10/28/2023 [facility] Work Phone: Comment on above: Ordered: 10/28/2023 Njx dx/ther agt pvrt facet jt lmbr/sac 1 level NJX DX/THER AGT PVRT FACET JT LMBR/SAC 1 LEVEL Procedures Routine Lumbar spondylosis Ordered: 12/16/2023 [facility] Work Phone: Comment on above: Ordered: 12/16/2023 Njx dx/ther agt pvrt facet jt lmbr/sac 1 level NJX DX/THER AGT PVRT FACET JT LMBR/SAC 1 LEVEL Procedures Routine Lumbar spondylosis Ordered: 04/26/2024 [facility] Work Phone: Comment on above: Ordered: 04/26/2024 Njx dx/ther agt pvrt facet jt lmbr/sac 1 level NJX DX/THER AGT PVRT FACET JT LMBR/SAC 1 LEVEL Procedures Routine Lumbar spondylosis Ordered: 05/10/2024 [facility] Work Phone: Comment on above: Ordered: 05/10/2024 Njx dx/ther agt pvrt facet jt lmbr/sac 2nd level NJX DX/THER AGT PVRT FACET JT LMBR/SAC 2ND LEVEL Procedures Routine Lumbar spondylosis Ordered: 10/28/2023 [facility] Work Phone: Comment on above: Ordered: 10/28/2023 Njx dx/ther agt pvrt facet jt lmbr/sac 2nd level NJX DX/THER AGT PVRT FACET JT LMBR/SAC 2ND LEVEL Procedures Routine Lumbar spondylosis Ordered: 12/16/2023 [facility] Comment on above: Ordered: 12/16/2023 Njx dx/ther agt pvrt facet jt lmbr/sac 2nd level NJX DX/THER AGT PVRT FACET JT LMBR/SAC 2ND LEVEL Procedures Routine Lumbar spondylosis Ordered: 04/26/2024 [facility] Comment on above: Ordered: 04/26/2024 Njx dx/ther agt pvrt facet jt lmbr/sac 2nd level NJX DX/THER AGT PVRT FACET JT LMBR/SAC 2ND LEVEL Procedures Routine Lumbar spondylosis Ordered: 05/10/2024 [facility] Comment on above: Ordered: 05/10/2024 Njx dx/ther sbst int rlmnr lmbr/sac w/img gdn EPI LUMBAR OR SACRAL W/IMAGING Procedures Routine Lumbar radiculopathy Ordered: 03/16/2024 [facility] Work Phone: Comment on above: Ordered: 03/16/2024 Patient Education Treating Wrist Fractures [facility] Work Phone: Patient referral [facility] Work Phone: End: 07-07-2025 PULMONARY LAB-SPECIFIC TESTING SERVICE RQST PULMONARY LAB-SPECIFIC TESTING SERVICE RQST PFT Routine Reactive airway disease without complication, unspecified asthma severity, unspecified whether persistent (HCC) 1 Occurrences starting 01/08/2025 until 07/07/2025 [email or web address] Comment on above: 1 Occurrences starting 01/08/2025 until 07/07/2025 Smr prim src gram/gi emsa stain bct fungi/cell RESPIRATORY CULTURE, MISC Microbiology Routine 10/25/2024 12:47 PM EDT [facility] [employer] [facility] Work Phone: Troponin T.cardiac [Mass/volume] in Serum or Plasma by High sensitivity method [facility] Urine culture [facility] End: 08-13-2025 XR Chest PA and Lateral XR CHEST 2V FRONTAL/LAT Radiology Routine Spinal stenosis of lumbar region with neurogenic claudication 1 Occurrences starting 07/14/2024 until 08/13/2025 [facility] Comment on above: 1 Occurrences starting 07/14/2024 until 08/13/2025 End: 07-14-2024 XR Chest PA and Lateral [facility] Work Phone: Comment on above: 1 Occurrences starting 07/14/2024 until 07/14/2024 End: 09-09-2025 XR Lumbar spine 2 Views XR LUMBAR LIMITED 2V FLEX/EXT Radiology Routine S/P lumbar laminectomy 1 Occurrences starting 08/10/2024 until 09/09/2025 [facility] Work Phone: Comment on above: 1 Occurrences starting 08/10/2024 until 09/09/2025 End: 05-04-2025 XR Lumbar spine AP and Lateral XR LUMBAR LIMITED 2V AP/LAT Radiology Routine Low back pain, unspecified back pain laterality, unspecified chronicity, unspecified whether sciatica present 1 Occurrences starting 04/04/2024 until 05/04/2025 [facility] Work Phone: Comment on above: 1 Occurrences starting 04/04/2024 until 05/04/2025 End: 05-06-2025 XR Lumbar spine Views W flexion and W extension XR LUMBAR MOTION 4V AP/LAT/ FLEX/EXT Radiology Routine Low back pain, unspecified back pain laterality, unspecified chronicity, unspecified whether sciatica present 1 Occurrences starting 04/06/2024 until 05/06/2025 [facility] Comment on above: 1 Occurrences starting 04/06/2024 until 05/06/2025 XR Lumbar spine View s W flexion and W extension XR LUMBAR MOTION 4V AP/LAT/ FLEX/EXT Radiology Routine Low back pain, unspecified back pain laterality, unspecified chronicity, unspecified whether sciatica present 06/05/2024 8:59 AM EST [facility] Work Phone: [facility] Immunizations Immunization Date Immunization Notes Care Provider [facility] 01-08-2025 Pneumococcal conjuga te 20 valent (PCV20), polysaccharide [id number] conjugate, adjuvant, PF (ZJF=807) Veronica Butt PROCESS TRAINER-PROFESSOR OF MARKETING Work Phone: [facility] 01-08-2025 Respiratory syncytia l virus (RSV), vaccine, bivalent, protein subunit RSV prefusion F, diluent reconstituted, 0.5 mL, preservative free (TQY=144) Veronica Butt PROCESS TRAINER-PROFESSOR OF MARKETING Work Phone: [facility] 10-24-2024 Hemoglobin A1C Aura Wagner MD Work Phone: [facility] 06-14-2023 tetanus toxoid, redu seda diphtheria toxoid, and acellular pertussis vaccine, adsorbed [employer] [facility] Work Phone: [facility] 04-24-2019 influenza, injectabl e, quadrivalent, preservative free [facility] 04-24-2019 influenza virus vacc ine, unspecified formulation [facility] Work Phone: [facility] 06-04-2017 influenza, injectabl e, quadrivalent, preservative free [facility] 06-04-2017 pneumococcal polysaccharide vaccine, 23 valent [facility] 05-26-2017 Influenza virus vaccine W [facility] 05-26-2017 influenza virus vacc ine, split virus (incl. purified surface antigen) Brooke uW RN [facility] 05-26-2017 influenza, seasonal, injectable, preservative free Brooke Wu RN [facility] 05-26-2017 pneumococcal conjuga te vaccine, 13 [facility] 06-08-2015 pneumococcal conjuga te vaccine, 13 [facility] 06-05-2015 influenza, seasonal, injectable, preservative free [facility] Payers Date Payer Category Payer Self-pay [id number] [phone] [id number] 2024 Medicare FFS MEDICARE [id number] 2024 Commercial Indemnity [id number] 2024 Miscellaneous or Other HOSPITAL/ MEDICAL GENERIC [id number] 2024 Unknown [id number] 2024 Medicare [id number] 2024 Medicare [id number] 2018 Unknown [id number] [id number] .[id number] 2016 Unknown [id number] 1959 Unknown [id number] 2.16.840.1.914236.3.579.2. 732 1959 Unknown [id number] 2.16.840.1.840790.3.579.2. 732 1959 Unknown [id number] 2.16.840.1.911560.3.579.2. 732 1959 Unknown [id number] 2.16.840.1.862634.3.579.2. 732 1959 Unknown [id number] 2.16.840.1.567513.3.579.2. 732 1959 Unknown [id number] 2.16.840.1.027008.3.579.2. 732 1959 Unknown [id number] 2.16.840.1.858740.3.579.2. 732 1959 Unknown [id number] 2.16.840.1.795502.3.579.2. 732 Unknown 0000 [id number] Unknown [id number] 2.16.840.1.345266.3.579.2. 462 Unknown [id number] 2.16.840.1.919767.3.579.2. 462 Unknown [id number] 2.16.840.1.892110.3.579.2. 462 Unknown [id number] 2.16.840.1.498098.3.579.2. 462 Unknown [id number] 2.16.840.1.184231.3.579.2. 462 Unknown [id number] 2.16.840.1.860572.3.579.2. 462 Unknown [id number] 2.16.840.1.366974.3.579.2. 462 Unknown [id number] 2.0.1.168854.3.579.2. 462 Unknown [id number] 2.16840.1.323491.3.579.2. 462 Social History Date Type Detail Facility Start: 04-22-2019 End: 03-22-2022 Tobacco smoking status CTIS Tobacco smoking consumption unknown [facility] Start: 1960 [facility]igned [facility] Start: 04-23-2019 Heavy [facility] Start: 04-22-2019 None [facility] Start: 04-22-2019 Spouse/ Signif icant Other [facility] Start: 04-23-2019 Cigarettes [facility] Start: 1960 Sex Assigned At Male W [facility] Start: 06-14-2023 End: 02-27-2025 Tobacco smoking status CTIS Smokes tobacco daily [facility] History of tobacco use Cigarette Smoker [facility] Start: 06-14-2023 End: 10-24-2024 Cigarettes smoked current (pack per day) - Reported 2 [facility] Start: 06-14-2023 End: 01-08-2025 Tobacco use and exposure Smokeless tobacco non-user [facility] Start: 08-20-2023 End: 10-24-2024 Alcohol intake Current drinker of alcohol (finding) [facility] Start: 08-20-2023 End: 10-24-2024 Tobacco use panel [facility] National Score (1-100), lower number is lower risk 53 [facility] Start: 06-14-2023 Alcohol Comment 6 pack a day [facility] Start: 04-06-2024 End: 07-14-2024 Tobacco smoking status NHIS Ex-smoker [facility] History of tobacco use Current smoker [facility] Start: 04-06-2024 Tobacco Comment Quit smoking a week or so ago (04/06/24) [facility] Start: 07-14-2024 Tobacco Comment Quit smoking a week or so ago (04/06/24)Smoked for about 35 years max 2 ppd [facility] Start: 07-14-2024 Alcohol Comment 30 cans beer per wee k [facility] Start: 07-14-2024 Tobacco Comment Quit smoking a week or so ago (04/06/24)Smoked for about 35 years 1- 2 [facility] Has the [employer], [employer], or water [employer] threatened to shut off services in your home in past 12Mo No [facility] (I/We) worried wheth er (my/our) food would run out before (I/we) got money to buy more. Never true [facility] Start: 04-23-2019 Sex Male (finding) [facility] Start: 11-17-2024 End: 01-08-2025 Tobacco smoking status NHIS Occasional tobacco smoker [facility] Medical Equipment Procedure Code Equipment Code Equipment [...] 0 RUBIO Y INSERT FDA Start: 06-23-2017 Goals Date Patient Goal Desired Activity /State Functional Status Date Assessment Result Facility 03-05-2025 Functional status Ambulates [facility] Work Phone: 03-04-2025 Functional status Tolerates Activity Well [facility] Work Phone: 07-29-2024 Are you deaf, or do you have serious difficulty hearing No 07/29/2024 3:21 PM Kip Bridges, NEENA No [facility] 07-29-2024 Are you blind, or do you have serious difficulty seeing, even when wearing glasses No 07/29/2024 3:21 PM Kip Bridges, NEENA No [facility] 07-29-2024 Do you have serious difficulty walking or climbing stairs No 07/29/2024 3:21 PM Kip Bridges, NEENA No [facility] 07-29-2024 Do you have difficul ty dressing or bathing No 07/29/2024 3:21 PM Kip Bridges, NEENA No [facility] 07-29-2024 Because of a physica l, mental, or emotional condition, do you have difficulty doing errands alone such as visiting a physician's office or shopping No 07/29/2024 3:21 PM EST Kip Lott, RN No [facility] 04-23-2019 Are you deaf, or do you have serious difficulty hearing No 04/23/2019 9:00 PM EDT Cynthia Cohn, NEENA No [facility] 04-23-2019 Are you blind, or do you have serious difficulty seeing, even when wearing glasses Yes 04/23/2019 9:00 PM EDT Cynthia Cohn, NEENA Yes [facility] 04-23-2019 Do you have serious difficulty walking or climbing stairs No 04/23/2019 9:00 PM EDT Cynthia Cohn, NEENA No [facility] 04-23-2019 Do you have difficul ty dressing or bathing No 04/23/2019 9:00 PM EDT Cynthia Cohn, NEENA No [facility] 04-23-2019 Because of a physica l, mental, or emotional condition, do you have difficulty doing errands alone such as visiting a physician's office or shopping No 04/23/2019 9:00 PM EDCynthia Muñoz, NEENA No [facility] Mental Status Date Assessment Result Facility 03-05-2025 Cognitive function Voice/Name [facility] Work Phone: 02-26-2025 Cognitive function Level Of Cons ciousness Awake;Alert;Appropriate;Fo llows Commands [facility] Work Phone: 07-29-2024 Because of a physica l, mental, or emotional condition, do you have serious difficulty concentrating, remembering, or making decisions No 07/29/2024 3:21 PM Kip Bridges, RN No [facility] 04-23-2019 Because of a physica l, mental, or emotional condition, do you have serious difficulty concentrating, remembering, or making decisions No 04/23/2019 9:00 PM EDT Cynthia Cohn, NEENA No [facility] Clinical Notes 08-20-2023 to 03-09-2025 Telephone Encounter - Anna Sanders PA-C - 03/09/2025 6:20 AM EDTTelephone Encounter - Anna Sanders PA-C - 03/09/2025 6:20 AM EDT Note Date & Type Note Facility 03-09-2025 Telephone encounter Note Form atting of this note might be different from the original. Pt is not taking Nexium according to his chart [facility] 03-09-2025 Miscellaneous Notes Formattin g of this note might be different from the original. Pt is not taking Nexium according to his chart Pharmacy is calling to request clarification on the following prescription: Reason for call: drug interaction between esomeprazole (NEXIUM) 40 MG capsule And clopidogrel (Plavix) 75 MG tablet Also duplicate therapy between umeclidinium-vilanterol (ANORO-ELLIPTA) 62.5-25 mcg/inh AEPB inhalation powder And ipratropium-albuterol (DUO-NEB) 0.5-2.5 (3) MG/3ML nebulizer solution Pharmacy name: Annika with [facility] Pharmacy phone: [phone] Please contact pharmacy to clarify or submit an updated prescription. Thank you. documented in this encounter [facility] 03-09-2025 Telephone encounter Note Form atting of this note might be different from the original. Did the hospital decrease the lisinopril? If so he should take whats on his discharge orders [facility] 03-09-2025 Miscellaneous Notes Formattin g of this note might be different from the original. Did the hospital decrease the lisinopril? If so he should take whats on his discharge orders Situation: Greta from [facility] calling Background: pt was admitted and had screening visit today Assessment: caller requesting clarification of Lisinopril. Has been taking Lisinopril 2.5. has not picked up ordered Lisinopril 10 mg yet. Current BP 154.80 Recommendation: caller advised last order was for Lisinopril 10 mg daily Caller states Elis will receive 2 nursing visits on week 1 Then one nursing visit x 3 week. No further questions Greta can be reached at [phone] Mi was contacted and informed that STEVE Sanders agrees to follow this pt for home care. Yes I am Situation: Mi calling from [facility]. They are schedule to start home car services tomorrow for SN/PT/OT and speech therapies Background: pt recently was hospitalized for aspiration pneumonia, resp failure and sepsis Assessment: - Recommendation: asking is you's be willing to follow this patient. They can be reached at [phone]. documented in this encounter [facility] 03-08-2025 Telephone encounter Note Form atting of this note is different from the original. Pharmacy is calling to request clarification on the following prescription: Reason for call: drug interaction between esomeprazole (NEXIUM) 40 MG capsule And clopidogrel (Plavix) 75 MG tablet Also duplicate therapy between umeclidinium-vilanterol (ANORO-ELLIPTA) 62.5-25 mcg/inh AEPB inhalation powder And ipratropium-albuterol (DUO-NEB) 0.5-2.5 (3) MG/3ML nebulizer solution Pharmacy name: Annika with [facility] Pharmacy phone: [phone] Please contact pharmacy to clarify or submit an updated prescription. Thank you. [facility] 03-08-2025 Telephone encounter Note Form atting of this note might be different from the original. Situation: Annika with [facility] calling to let provider know PT was started Background: Annika is asking for order for forward wheeled walker for Pt Assessment: - Recommendation: Please return call to Annika: [phone] and is secure line for voicemail. [facility] 03-08-2025 Miscellaneous Notes Formattin g of this note might be different from the original. Situation: Annika with [facility] calling to let provider know PT was started Background: Annika is asking for order for forward wheeled walker for Pt Assessment: - Recommendation: Please return call to Annika: [phone] and is secure line for voicemail. documented in this encounter [facility] 03-08-2025 Telephone encounter Note Form atting of this note might be different from the original. Situation: [facility] speech therapist, calling from [facility] wanted to notify that will be seeing pt for speech therapy next week instead of this week. Background: n/a Assessment: n/a Recommendation: will route to pcp [facility] 03-08-2025 Miscellaneous Notes Formattin g of this note might be different from the original. Situation: [facility] speech therapist, calling from [facility] wanted to notify that will be seeing pt for speech therapy next week instead of this week. Background: n/a Assessment: n/a Recommendation: will route to pcp documented in this encounter [facility] 03-07-2025 Telephone encounter Note Form atting of this note might be different from the original. Situation: Greta from [facility] calling Background: pt was admitted and had screening visit today Assessment: caller requesting clarification of Lisinopril. Has been taking Lisinopril 2.5. has not picked up ordered Lisinopril 10 mg yet. Current BP 154.80 Recommendation: caller advised last order was for Lisinopril 10 mg daily Caller states Elis will receive 2 nursing visits on week 1 Then one nursing visit x 3 week. No further questions Greta can be reached at [phone] [facility] 03-07-2025 Miscellaneous Notes Formattin g of this note might be different from the original. Situation: Greta from [facility] calling Background: pt was admitted and had screening visit today Assessment: caller requesting clarification of Lisinopril. Has been taking Lisinopril 2.5. has not picked up ordered Lisinopril 10 mg yet. Current BP 154.80 Recommendation: caller advised last order was for Lisinopril 10 mg daily Caller states Elis will receive 2 nursing visits on week 1 Then one nursing visit x 3 week. No further questions Greta can be reached at [phone] Mi was contacted and informed that STEVE Sanders agrees to follow this pt for home care. Yes I am Situation: Mi calling from [facility]. They are schedule to start home car services tomorrow for SN/PT/OT and speech therapies Background: pt recently was hospitalized for aspiration pneumonia, resp failure and sepsis Assessment: - Recommendation: asking is you's be willing to follow this patient. They can be reached at [phone]. documented in this encounter [facility] 03-06-2025 Telephone encounter Note Form atting of this note might be different from the original. Mi was contacted and informed that STEVE Sanders agrees to follow this pt for home care. [facility] 03-06-2025 Miscellaneous Notes Formattin g of this note might be different from the original. Mi was contacted and informed that STEVE Sanders agrees to follow this pt for home care. Yes I am Situation: Mi calling from [facility]. They are schedule to start home car services tomorrow for SN/PT/OT and speech therapies Background: pt recently was hospitalized for aspiration pneumonia, resp failure and sepsis Assessment: - Recommendation: asking is you's be willing to follow this patient. They can be reached at [phone]. documented in this encounter [facility] 03-06-2025 Telephone encounter Note Form atting of this note might be different from the original. Yes I am [facility] 03-06-2025 Telephone encounter Note Form atting of this note might be different from the original. Situation: Mi calling from [facility]. They are schedule to start home car services tomorrow for SN/PT/OT and speech therapies Background: pt recently was hospitalized for aspiration pneumonia, resp failure and sepsis Assessment: - Recommendation: asking is you's be willing to follow this patient. They can be reached at [phone]. [facility] 03-05-2025 Discharge summary [facility] 03-05-2025 Note [facility] Medical Records Department [address] [place] [place] [address] Discharge Summary 03/05/25 1626 MR#: [id number] Acct: [id number] Name: ELIS BILLS Rep #: [id number] : 1960 64 From: Antonio Parker DO PCP: Anna Sandres PA-C Status:DIS IN Location: [facility] [id number] Providers Date of Admission: 02/27/25 Date of Discharge: 03/05/25 Primary Care Physician: Anna Sanders PA-C Consultations 02/28/25 10:18 Consult: [employer] / Pulmonary Medicine Routine Consulting Provider: Intensivists/Pulmonary Med Reason for Consult: SIRS with fever and leukocytosis EMERGENT Consult: No MD Notified: Yes Date Notified: 02/28/25 Time Notified: 10:18 Method of Notification: Answering Service 03/01/25 07:43 Consult: Infectious Disease Routine Consulting Provider: Pilar Gannon Reason for Consult: persistent fever on broad abx EMERGENT Consult: No MD Notified: Yes Date Notified: 03/01/25 Time Notified: 07:50 Method of Notification: Text Reason For Visit: FEVER,LEUKOCYTOSIS,AMS, ETOH ABUSE RECENT FALL Diagnosis Discharge Diagnosis (1) Sepsis: Status: Acute Code(s): A41.9 - Sepsis, unspecified organism Qualifiers: Sepsis acute organ dysfunction status: with acute organ dysfunction Sepsis type: sepsis due to unspecified organism Severe sepsis acute organ dysfunction type: encephalopathy Severe sepsis shock status: without septic shock Qualified Code(s): A41.9 - Sepsis, unspecified organism; R65.20 - Severe sepsis without septic shock; G93.41 - Metabolic encephalopathy (2) Aspiration pneumonia: Status: Acute Code(s): J69.0 - Pneumonitis due to inhalation of food and vomit Qualifiers: Aspiration pneumonia type: unspecified Laterality: right Lung location: lower lobe of lung Qualified Code(s): J69.0 - Pneumonitis due to inhalation of food and vomit (3) Acute metabolic encephalopathy: Status: Acute Code(s): G93.41 - Metabolic encephalopathy Plan 1. Sepsis secondary to aspiration pneumonia-patient will remain on his current antibiotic per infectious diseases, continue PT, OT and speech therapy #2 aspiration pneumonia-patient will remain on his present diet per speech #3 acute debility secondary to sepsis and aspiration pneumonia-PT and OT will work with the patient #4 acute respiratory failure-resolved at this time, patient is on room air #5 metabolic encephalopathy secondary to sepsis and pneumonia-patient is alert today and responds appropriately to simple questions #6 cerebrovascular disease-patient is on Plavix and a statin #7 chronic obstructive pulmonary disease-continue aerosol treatments #8 alcohol withdrawal with DTs It is possible that PT and OT will recommend the patient go to an extended care facility for short- term rehab services, I do not know whether the patient will be comfortable with this recommendation. Total clinical time spent by myself addressing the patient's medical issues, reviewing all of his data, and collaborating with patient's care team: 35-minutes Medications at Discharge Home Medications atorvastatin 80 mg tablet 80 mg PO DAILY 03/22/22 clopidogrel 75 mg tablet 75 mg PO DAILY 03/22/22 lisinopril 2.5 mg tablet 2.5 mg PO DAILY 03/22/22 esomeprazole magnesium 40 mg capsule,delayed release 40 mg PO DAILY 02/26/25 folic acid 1 mg tablet 1 mg PO DAILY 02/26/25 ipratropium 0.5 mg-albuterol 3 mg (2.5 mg base)/3 mL nebulization soln 3 ml continuous nebulization Q4H PRN PRN wheezing 02/26/25 montelukast 10 mg tablet 10 mg PO DAILY 02/26/25 thiamine HCl (vitamin B1) 100 mg tablet 100 mg PO DAILY 02/26/25 umeclidinium 62.5 mcg-vilanterol 25 mcg/actuation powdr for inhalation (Anoro Ellipta) 1 ea inhalation DAILY 02/26/25 furosemide 40 mg tablet (Lasix) 40 mg PO DAILY #7 tabs 03/05/25 potassium chloride 10 mEq tablet,extended release (Klor-Con) 20 meq (2 x 10 mEq) PO DAILY #14 tabs 03/05/25 prednisone 20 mg tablet 20 mg PO BIDCM #10 tabs 03/05/25 Hospital Course Operations None Procedures 2-D Echocardiogram Summary of Care Provided Minutes Spent on Discharge: 31 Hospital Course: 64-year-old white male was seen in the emergency room at [facility] with complaint of altered mental status per and generalized weakness. noted the patient to be confused at home and decided to call squad to bring the patient to [facility] ER for evaluation. Workup in the emergency room included a CBC which showed an elevated white blood cell count at 17.4, hemoglobin was 13.1, chemistry profile was remarkable for sodium of 126, chloride of 90, initial troponin was 52, repeat troponin 2 hours was 49, AST was slightly elevated at 42, and urinalysis was unremarkable. Brain CT showed no acute intracranial hemorrhage midline shift or mass effect, chest x-ray showed cardiomegaly with mi (more content not included)... [facility] 03-05-2025 Progress note Note Date/Time March 05, 2025 1:04pm [facility] Medical Records Department [address] [place] [address] Progress Note - Infect Disease 03/05/25 1303 MR#: [id number] Acct: [id number] Name: ELIS BILLS Rep #:[id number] : 1960 64 From: Pilar villavicencio MD PCP: Anna Sanders PA-C Status:ADM IN Location: [place] [address] Physical Exam Narrative Feeling much better, no fever, dyspnea resolved, no n/v/d. Const alert and no apparent distress General Appearance: cooperative Resp clear to auscultation bilaterally Auscultation: diminished lung sounds Cardio regular rate and regular rhythm GI soft to palpation, non-tender and non-distended Skin no rashes or lesions noted ID ID: Route of nutrition/ use of supplements: [] Nutritional Intake: [] IV Site: [] Schreiber Catheter: [] Assessment & Plan Assessment/Plan (1) Sepsis: QUALIFIERS: Sepsis type: sepsis due to unspecified organism Sepsis acute organ dysfunction status: with acute organ dysfunction Severe sepsis acute organ dysfunction type: encephalopathy Severe sepsis shock status: without septic shock Qualified Code(s): A41.9 - Sepsis, unspecified organism; R65.20 - Severe sepsis without septic shock; G93.41 - Metabolic encephalopathy PLAN: Infectious workup neg so far besides for presumed aspiration pneumonia. Lyme neg. Etoh withdrawal could be playing a part in his temps. Now feeling much better, infection appears resolved, will stop abx. Will follow as needed (2) Aspiration pneumonia: QUALIFIERS: Aspiration pneumonia type: unspecified Laterality: right Lung location: lower lobe of lung Qualified Code(s): J69.0 - Pneumonitis due to inhalation of food and vomit (3) Acute metabolic encephalopathy: 03/05/25 1304 <Electronically signed by Pilar Gannon MD> Cosigner Signature (if applicable): CC: ~ Signed [facility] Work Phone: 1(604) 764-930608-18-2025 Hospital Discharge instructionsAdditional [facility]: [facility] Phone: 1(468) 974-354908-18-2025 Progress note [facility] Medical Records Department [address] [place] [address] Progress Note - Infect Disease 03/05/25 1303 MR#: [id number] Acct: [id number] Name: ELIS BILLS Rep #:[id number] : 1960 64 From: Pilar villavicencio MD PCP: Anna Sanders PA-C Status:ADM IN Location: [place] [address] Physical Exam Narrative Feeling much better, no fever, dyspnea resolved, no n/v/d. Const alert and no apparent distress General Appearance: cooperative Resp clear to auscultation bilaterally Auscultation: diminished lung sounds Cardio regular rate and regular rhythm GI soft to palpation, non-tender and non-distended Skin no rashes or lesions noted ID ID: Route of nutrition/ use of supplements: [] Nutritional Intake: [] IV Site: [] Schreiber Catheter: [] Assessment & Plan Assessment/Plan (1) Sepsis: QUALIFIERS: Sepsis type: sepsis due to unspecified organism Sepsis acute organ dysfunction status: with acute organ dysfunction Severe sepsis acute organ dysfunction type: encephalopathy Severe sepsis shock status: without septic shock Qualified Code(s): A41.9 - Sepsis, unspecified organism; R65.20- Severe sepsis without septic shock; G93.41 - Metabolic encephalopathy PLAN: Infectious workup neg so far besides for presumed aspiration pneumonia. Lyme neg. Etoh withdrawal could be playing a part in his temps. Now feeling much better, infection appears resolved, willstop abx. Will follow as needed (2) Aspiration pneumonia: QUALIFIERS: Aspiration pneumonia type: unspecified Laterality: right Lung location: lower lobe of lung Qualified Code(s): J69.0 - Pneumonitis due to inhalation of food and vomit (3) Acute metabolic encephalopathy: 03/05/25 1304 Cosigner Signature (if applicable): CC: ~ Signed [facility]08-17-2025 Progress note Author Antonio Parker [facility] Note Date/Time March 04, 2025 6: 43pm [facility] Medical Records Department [address] [place] [address] Progress Note - Hospitalist 03/04/25 1839 MR#: [id number] Acct: [id number] Name: ELIS BILLS Tim Rep #:[id number] : 1960 64 From: Antonio Parker DO PCP: Anna Sanders PA-C Status:ADM IN Location: [place] [address] Reason for Visit Chief Complaint: AMS. Subjective Subjective Patient was seen and examined today, he remains on room air. Patient again asked me if he could be discharged home, I told him I would reevaluate him tomorrow and see how he did with PT and OT. Objective Data Objective Data Vital Signs: Vital Signs Temp Pulse Resp BP Pulse Ox O2 Del Method O2 Flow Rate 98.2 F 77 28 H 146/69 H 90 Room Air 2 03/04/25 14:46 03/04/25 14:46 03/04/25 14:46 03/04/25 14:46 03/04/25 14:46 03/04/25 14:46 03/03/25 10:00 FiO2 40 03/02/25 08:00 Oxygen Flow Rate (L/min) 2 Oxygen Delivery Method Room Air Weight: 120.9 kg Body Mass Index (BMI) 39.3 Intake & Output: Intake and Output for Last 24 Hours 03/02/25 03/03/25 03/04/25 23:59 23:59 23:59 Intake Total 902 / 902 1033.25 / 1033.25 904 / 904 Output Total 2250 / 2250 750 / 750 500 / 500 Balance -1348 / -1348 283.25 / 283.25 404 / 404 Lab / Micro Data 03/03/25 06:15 03/03/25 06:15 Micro: Microbiology 02/27/25 17:50 Blood Culture (Wb) - Other Blood Culture - Preliminary No growth in 48 hours. 02/27/25 17:50 Blood Culture (Wb) - Anticubital Right Blood Culture - Preliminary No growth in 48 hours. 02/26/25 20:55 Blood Culture (Wb) - Left Wrist Blood Culture - Final No growth in 5 days. 02/26/25 21:05 Blood Culture (Wb) - Anticubital Left Blood Culture - Final No growth in 5 days. 02/26/25 20:20 Urine, Clean Catch Urine Culture - Final Mixed Gram Positive Organisms 02/28/25 20:15 Mucosa - Nasopharyngeal Coronavirus COVID-19 PCR - Final 02/28/25 18:20 Nasal Secretion MRSA (PCR) - Final 02/28/25 15:15 Urine Catheter - Schreiber Legionella Antigen - Final 02/28/25 15:15 Urine Catheter - Schreiber Streptococcus pneumoniae Antigen (M - Final 02/27/25 03:45 Mucosa - Nasopharyngeal Respiratory Panel (PCR) - Final Physical Exam Narrative alert, oriented x3 and no apparent distress Constitutional Narrative: Patient has class III obesity General Appearance: cooperative, well kempt and well developed Orientation / Consciousness: awake, oriented to person, oriented to place and time HEENT normocephalic, head/scalp atraumatic and moist oral mucous membranes Eyes PERRL, EOMs intact bilaterally and conjunctivae normal Neck supple, no JVD, thyroid normal and no carotid bruits General: trachea midline Resp normal respiratory effort, no retractions, no use of accessory muscles and clearto auscultation bilaterally Auscultation: Negative for rales, rhonchi or wheezes Cardio regular rate, regular rhythm, S1 normal heart sound, S2 normal heart sound, no murmurs, no rub and no gallops GI normal to inspection, nondistended, normoactive bowel sounds, soft to palpation,non-tender and non-distended Extremity no clubbing, cyanosis or edema Skin no rashes or lesions noted General Skin Exam: no breakdown Neuro oriented x3, CN's II-XII intact bilaterally, moves all extremities, no focal motor deficits and no sensory deficits noted Sensorium / Orientation: awake and alert Speech: speech normal Psych affect normal Assessment & Plan Assessment/Plan (1) Aspiration pneumonia: QUALIFIERS: Aspiration pneumonia type: unspecified Laterality: right Lung location: lower lobe of lung Qualified Code(s): J69.0 - Pneumonitis due to inhalation of food and vomit (2) Acute hypoxic respiratory failure: PLAN: Plan 1. Sepsis secondary to aspiration pneumonia-patient will remain on his current antibiotic per infectious diseases, continue PT, OT and speech therapy #2 aspiration pneumonia-patient will remain on his present diet per speech #3 acute debility secondary to sepsis and aspiration pneumonia-PT and OT will work with the patient #4 acute respiratory failure-resolved at this time, patient is on room air #5 metabolic encephalopathy secondary to sepsis and pneumonia-patient is alert today and responds appropriately to simple questions #6 cerebrovascular disease-patient is on Plavix and a statin #7 chronic obstructive pulmonary disease-continue aerosol treatments It is possible that PT and OT will recommend the patient go to an extended care facility for short-term rehab services, I do not know whether the patient will be comfortable with this recommendation. Total clinical time spent by myself addressing the patient's medical issues, reviewing all of his data, and collaborating with patient's care team: 35- minutes Charges/Coding Visit Charges Inpatient E&M: 54813 Subs Hosp L2 03/04/25 1843 <Electronically signed by Antonio Parker DO> Cosigner Signature (if applicable): CC: ~ Signed [facility] Work Phone: 1(107) 997-769908-17-2025 Progress note [facility] Medical Records Department [address] [place] [address] Progress Note - Hospitalist 03/04/25 1839 MR#: [id number] Acct: [id number] Name: ELIS BILLS Rep #:[id number] : 1960 64 From: Antonio Parker DO PCP: Anna Sanders PA-C Status:ADM IN Location: [place] [address] Reason for Visit Chief Complaint: AMS. Subjective Subjective Patient was seen and examined today, he remains on room air. Patient again asked me if he could be discharged home, I told him I would reevaluate him tomorrow and see how he did with PT and OT. Objective Data Objective Data Vital Signs: Vital Signs Temp Pulse Resp BP Pulse Ox O2 Del Method O2 Flow Rate 98.2 F 77 28 H 146/69 H 90 Room Air 2 03/04/25 14:46 03/04/25 14:46 03/04/25 14:46 03/04/25 14:46 03/04/25 14:46 03/04/25 14:46 03/03/25 10:00 FiO2 40 03/02/25 08:00 Oxygen Flow Rate (L/min) 2 Oxygen Delivery Method Room Air Weight: 120.9 kg Body Mass Index (BMI) 39.3 Intake & Output: Intake and Output for Last 24 Hours 03/02/25 03/03/25 03/04/25 23:59 23:59 23:59 Intake Total 902 / 902 1033.25 / 1033.25 904 / 904 Output Total 2250 / 2250 750 / 750 500 / 500 Balance -1348 / -1348 283.25 / 283.25 404 / 404 Lab / Micro Data 03/03/25 06:15 03/03/25 06:15 Micro: Microbiology 02/27/25 17:50 Blood Culture (Wb) - Other Blood Culture - Preliminary No growth in 48 hours. 02/27/25 17:50 Blood Culture (Wb) - Anticubital Right Blood Culture - Preliminary No growth in 48 hours. 02/26/25 20:55 Blood Culture (Wb) - Left Wrist Blood Culture - Final No growth in 5 days. 02/26/25 21:05 Blood Culture (Wb) - Anticubital Left Blood Culture - Final No growth in 5 days. 02/26/25 20:20 Urine, Clean Catch Urine Culture - Final Mixed Gram Positive Organisms 02/28/25 20:15 Mucosa - Nasopharyngeal Coronavirus COVID-19 PCR - Final 02/28/25 18:20 Nasal Secretion MRSA (PCR) - Final 02/28/25 15:15 Urine Catheter - Schreiber Legionella Antigen - Final 02/28/25 15:15 Urine Catheter - Schreiber Streptococcus pneumoniae Antigen (M - Final 02/27/25 03:45 Mucosa - Nasopharyngeal Respiratory Panel (PCR) - Final Physical Exam Narrative alert, oriented x3 and no apparent distress Constitutional Narrative: Patient has class III obesity General Appearance: cooperative, well kempt and well developed Orientation / Consciousness: awake, oriented to person, oriented to place and time HEENT normocephalic, head/scalp atraumatic and moist oral mucous membranes Eyes PERRL, EOMs intact bilaterally and conjunctivae normal Neck supple, no JVD, thyroid normal and no carotid bruits General: trachea midline Resp normal respiratory effort, no retractions, no use of accessory muscles and clearto auscultation bilaterally Auscultation: Negative for rales, rhonchi or wheezes Cardio regular rate, regular rhythm, S1 normal heart sound, S2 normal heart sound, no murmurs, no rub and no gallops GI normal to inspection, nondistended, normoactive bowel sounds, soft to palpation,non-tender and non-distended Extremity no clubbing, cyanosis or edema Skin no rashes or lesions noted General Skin Exam: no breakdown Neuro oriented x3, CN's II-XII intact bilaterally, moves all extremities, no focal motor deficits and no sensory deficits noted Sensorium / Orientation: awake and alert Speech: speech normal Psych affect normal Assessment & Plan Assessment/Plan (1) Aspiration pneumonia: QUALIFIERS: Aspiration pneumonia type: unspecified Laterality: right Lung location: lower lobe of lung Qualified Code(s): J69.0 - Pneumonitis due to inhalation of food and vomit (2) Acute hypoxic respiratory failure: PLAN: Plan 1. Sepsis secondary to aspiration pneumonia-patient will remain on his current antibiotic per infectious diseases, continue PT, OT and speech therapy #2 aspiration pneumonia-patient will remain on his present diet per speech #3 acute debility secondary to sepsis and aspiration pneumonia-PT and OT will work with the patient #4 acute respiratory failure-resolved at this time, patient is on room air #5 metabolic encephalopathy secondary to sepsis and pneumonia-patient is alert today and responds appropriately to simple questions #6 cerebrovascular disease-patient is on Plavix and a statin #7 chronic obstructive pulmonary disease-continue aerosol treatments It is possible that PT and OT will recommend the patient go to an extended care facility for short-term rehab services, I do not know whether the patient will be comfortable with this recommendation. Total clinical time spent by myself addressing the patient's medical issues, reviewing all of his data, and collaborating with patient's care team: 35-minutes Charges/Coding Visit Charges Inpatient E&M: 72162 Subs Hosp L2 03/04/25 1843 Cosigner Signature (if applicable): CC: ~ Signed [facility]08-16-2025 Progress note Author Antonio Parker [facility] Note Date/Time March 03, 2025 7: 00pm [facility] Medical Records Department [address] [place] [address] Progress Note - Hospitalist 03/03/25 185 MR#: [id number] Acct: [id number] Name: ELIS BILLS Rep #:[id number] : 1960 64 From: Antonio Parker DO PCP: Anna Sanders PA-C Status:ADM IN Location: [place] [address] Reason for Visit Chief Complaint: AMS. Subjective Subjective Patient was seen and examined today, he appears to be stable to transfer to PCU for further care. Patient is currently on room air at this time. He was seen by physical therapy today and was at maximum assist. Objective Data Objective Data Vital Signs: Vital Signs Temp Pulse Resp BP Pulse Ox O2 Del Method O2 Flow Rate 98.5 F 71 17 150/80 H 95 Room Air 2 03/03/25 14:30 03/03/25 16:00 03/03/25 14:30 03/03/25 14:30 03/03/25 14:30 03/03/25 14:30 03/03/25 10:00 FiO2 40 03/02/25 08:00 Oxygen Flow Rate (L/min) 2 Oxygen Delivery Method Room Air Weight: 123.3 kg Body Mass Index (BMI) 40.1 Intake & Output: Intake and Output for Last 24 Hours 03/01/25 03/02/25 03/03/25 23:59 23:59 23:59 Intake Total 3822.09 / 3822.09 902 / 902 812 / 812 Output Total 2049 / 2049 2250 / 2250 750 / 750 Balance 1772.09 / 1772.09 -1348 / -1348 62 / 62 Lab / Micro Data 03/03/25 06:15 03/03/25 06:15 Labs: Laboratory Results - last 24 hr 03/03/25 06:15: WBC 10.7, RBC 3.82 L, Hgb 11.1 L, Hct 33.9 L, MCV 88.7, MCH 29.1, MCHC 32.7, RDW Std Deviation 48.5 H, RDW Coeff of Carlos 14.9 H, Plt Count 318, MPV 10.0, Sodium 142, Potassium 4.2, Chloride 111 H, Carbon Dioxide 22.7, Anion Gap 9, BUN 26 H, Creatinine 0.86, Estim Creat Clear Calc 111.12, Est GFR (MDRD) Non-Af 96, BUN/Creatinine Ratio 29.9 H, Glucose 134 H, Calcium 8.6 Micro: Microbiology 02/26/25 20:20 Urine, Clean Catch Urine Culture - Final Mixed Gram Positive Organisms 02/26/25 21:05 Blood Culture (Wb) - Anticubital Left Blood Culture - Preliminary No growth in 48 hours. 02/26/25 20:55 Blood Culture (Wb) - Left Wrist Blood Culture - Preliminary No growth in 48 hours. 02/28/25 20:15 Mucosa - Nasopharyngeal Coronavirus COVID-19 PCR - Final 02/28/25 18:20 Nasal Secretion MRSA (PCR) - Final 02/28/25 15:15 Urine Catheter - Schreiber Legionella Antigen - Final 02/28/25 15:15 Urine Catheter - Schreiber Streptococcus pneumoniae Antigen (M - Final 02/27/25 03:45 Mucosa - Nasopharyngeal Respiratory Panel (PCR) - Final Physical Exam Const alert, oriented x3 and no apparent distress Constitutional Narrative: Patient has class III obesity General Appearance: cooperative, well kempt and well developed Orientation / Consciousness: awake, oriented to person, oriented to place and oriented to time HEENT normocephalic, head/scalp atraumatic and moist oral mucous membranes Eyes PERRL, EOMs intact bilaterally and conjunctivae normal Neck supple, no JVD, thyroid normal and no carotid bruits General: trachea midline Resp normal respiratory effort, no retractions, no use of accessory muscles and clearto auscultation bilaterally Auscultation: Negative for rales, rhonchi or wheezes Cardio regular rate, regular rhythm, S1 normal heart sound, S2 normal heart sound, no murmurs, no rub and no gallops GI normal to inspection, nondistended, normoactive bowel sounds, soft to palpation,non-tender and non-distended Extremity no clubbing, cyanosis or edema Skin no rashes or lesions noted General Skin Exam: no breakdown Neuro oriented x3, CN's II-XII intact bilaterally, moves all extremities, no focal motor deficits and no sensory deficits noted Sensorium / Orientation: awake and alert Speech: speech normal Psych affect normal Assessment & Plan Assessment/Plan (1) Acute hypoxic respiratory failure: PLAN: Plan 1. Sepsis secondary to aspiration pneumonia-patient will remain on his current antibiotic per infectious diseases, again patient appears stable for transfer toP for further care #2 aspiration pneumonia-patient will remain on his present diet per speech #3 acute debility secondary to sepsis and aspiration pneumonia-PT and OT will work with the patient #4 acute respiratory failure-resolved at this time, patient is on room air #5 metabolic encephalopathy secondary to sepsis and pneumonia-patient is alert today and responds appropriately to simple questions #6 cerebrovascular disease-patient is on Plavix and a statin #7 chronic obstructive pulmonary disease-continue aerosol treatments Total clinical time spent by myself addressing the patient's medical issues, reviewing all of his data, and collaborating with patient's care team: 35- minutes Charges/Coding Visit Charges Inpatient E&M: 37322 Subs Hosp L2 03/03/25 1900 <Electronically signed by Antonio Parker DO> Cosigner Signature (if applicable): CC: ~ Signed [facility] Work Phone: 1(500) 523-585808-16-2025 Progress note Author Alli Vijay [facility] Note Date/Time March 03, 2025 6: 02pm [facility] Medical Records Department [address] [place] [address] Progress Note - Supervisor [employer] 03/03/25 3679 MR#: [id number] Acct: [id number] Name: ELIS BILLS Rep #:[id number] : 1960 64 From: Alli Richard PCP: Anna Sanders PA-C Status:ADM IN Location: [facility] [id number] Objective Data Objective Data Vital Signs: Vital Signs Last response 3 Temperature 36.9 C 03/03/25 14:30 Temperature Source Temporal 03/03/25 14:30 Pulse Rate 71 03/03/25 16:00 Pulse Strength Normal (2+) 03/02/25 22:00 Respiratory Rate 17 03/03/25 14:30 Respiratory Effort Normal, Non-Labored 03/03/25 04:00 Respiratory Depth Normal 03/03/25 04:00 Respiratory Pattern Tachypnea 03/03/25 04:00 Blood Pressure 150/80 H 03/03/25 14:30 Blood Pressure Mean 103 03/03/25 14:30 Blood Pressure Source Monitor 03/03/25 14:30 Blood Pressure Position Semi-Fowlers 03/03/25 14:30 Blood Pressure Location Left Arm 03/03/25 14:30 Pulse Ox 95 03/03/25 14:30 Oxygen Delivery Method Room Air 03/03/25 14:30 Oxygen Flow Rate (L/min) 2 03/03/25 10:00 Fraction of Inspired Oxygen (FIO2) 40 03/02/25 08:00 I&O: I&O Last 24 Hours 3 03/02/25 03/03/25 03/03/25 23:59 11:59 23:59 Intake Total 802 / 902 472 / 572 100 / 572 Output Total 1475 / 2250 750 / 750 Balance -673 / -1348 -278 / -178 100 / -178 I&O: Total Stay 3 02/26/25 20:48 thru 03/03/25 15:42 Intake Total 03578.20 Output Total 6428 Balance 5884.20 Current Meds Ordered / Administered: Current meds ordered / Administered 3 Generic Name Dose Route Start Last Admin Trade Name Freq PRN Reason Stop Dose Admin Acetaminophen 650 mg 03/01/25 01:35 03/01/25 05:49 Acetaminophen 325 Mg Tablet PO 650 mg Q4H PRN PRN Administration Pain 1-10 or Fever Albuterol/Ipratropium 3 ml 02/27/25 02:02 02/28/25 03:08 Ipratropium/Albuterol Sulfate 3 Ml Ampul.Neb INHALATION 3 ml Q4H PRN PRN Administration wheezing Albuterol/Ipratropium 3 ml 02/27/25 02:30 03/03/25 12:48 Ipratropium/Albuterol Sulfate 3 Ml Ampul.Neb INHALATION 3 ml Q6HWA.RT GABBY Administration Atorvastatin Calcium 80 mg 02/27/25 22:00 03/02/25 22:25 Atorvastatin Calcium 80 Mg Tablet PO 80 mg QHS GABBY Administration Budesonide 0.5 mg 02/28/25 18:15 03/03/25 06:58 Budesonide Respules 0.5 Mg/2 Ml Ampul.Neb. INHALATION 0.5 mg BID.RT GABBY Administration Chlorhexidine Gluconate 1 each 02/28/25 10:00 03/03/25 09:26 Chlorhexidine Gluc 2% Cloth 1 Each Towelette TOPICAL 1 each DAILY GABBY Administration Clopidogrel Bisulfate 75 mg 02/27/25 10:00 03/03/25 09:01 Clopidogrel Bisulfate 75 Mg Tablet PO 75 mg DAILY GABBY Administration Enoxaparin Sodium 40 mg 02/27/25 10:00 03/03/25 09:00 Enoxaparin 40 Mg/0.4 Ml Syringe SC 40 mg DAILY GABBY Administration Folic Acid 1 mg 02/27/25 08:00 03/03/25 09:00 Folic Acid 1 Mg Tablet PO 1 mg BREAKFAST GABBY Administration Hydroxyzine Pamoate 50 mg 02/27/25 02:02 02/28/25 21:19 Hydroxyzine Jodee 25 Mg Capsule PO 50 mg Q4H PRN PRN Administration mild anxiety Cefepime HCl 2 gm/ Sodium 100 mls @ 200 mls/hr 02/27/25 10:00 03/03/25 09:58 Chloride IV Infused Q12 GABBY Infusion Sodium Chloride 250 mls @ 15 mls/hr 02/27/25 02:04 IV .[id number] PRN Saline Flush Sodium Chloride 250 mls @ 15 mls/hr 02/27/25 02:04 IV .[id number] PRN Additional IVPB Infusion Metronidazole 500 mg in 100 mls @ 100 mls/hr 02/28/25 02:45 03/03/25 15:42 Flagyl IV Infused Q8 GABBY Infusion Pantoprazole Sodium 40 mg/ 100 mls @ 300 mls/hr 02/28/25 10:00 03/03/25 09:21 Sodium Chloride IV Infused Q24 GABBY Infusion Thiamine HCl 200 mg/ Sodium 52 mls @ 200 mls/hr 02/28/25 16:00 03/03/25 11:38 Chloride IV Infused DAILY GABBY Infusion Montelukast Sodium 10 mg 02/27/25 10:00 03/03/25 09:01 Montelukast 10 Mg Tablet PO 10 mg DAILY GABBY Administration Multivitamins 1 tablet 03/01/25 12:00 03/03/25 09:02 Multivitamins,Therapeutic Tablet PO 1 tablet LUNCH GABBY Administration Nicotine 14 mg 02/27/25 02:02 03/03/25 09:00 Nicotine 14 Mg Patch TD 14 mg DAILY GABBY Administration Ondansetron HCl 8 mg 02/27/25 02:02 Ondansetron 8 Mg Tablet PO Q8H PRN PRN NAUSEA Prednisone 20 mg 03/03/25 17:00 Prednisone 20 Mg Tablet PO BIDCM GABBY Sodium Chloride 10 - 40 ml 02/27/25 02:04 03/02/25 02:46 0.9% Saline Lock 10 Ml Syringe IV 10 ml UD PRN Administration SALINE FLUSH Trazodone HCl 100 mg 02/27/25 02:02 03/03/25 00:24 Trazodone 100 Mg Tablet PO 100 mg QHS PRN PRN Administration INSOMNIA Lab / Micro Data 03/03/25 06:15 03/03/25 06:15 Labs: Laboratory Results - last 24 hr 03/03/25 06:15: WBC 10.7, RBC 3.82 L, Hgb 11.1 L, Hct 33.9 L, MCV 88.7, MCH 29.1, MCHC 32.7, RDW Std Deviation 48.5 H, RDW Coeff of Carlos 14.9 H, Plt Count 318, MPV 10.0, Sodium 142, Potassium 4.2, Chloride 111 H, Carbon Dioxide 22.7, Anion Gap 9, BUN 26 H, Creatinine 0.86, Estim Creat Clear Calc 111.12, Est GFR (MDRD) Non-Af 96, BUN/Creatinine Ratio 29.9 H, Glucose 134 H, Calcium 8.6 Assessment and Plan . Assessment and plan: Subjective: Patient seen and examined using telemedicine. Chart and data reviewed. He is awake and alert. Up in a chair. Breathing RA comfortably. Noprecedex or benzodiazepines required. Fever appears significantly improved. Physical Exam: Gen - NAD, morbidly obese HEENT - MMM. Sclera anicteric Resp - decreased, CTA CV - RRR. No m/g/r Abd - Soft, NT, ND Ext - No c/c/e. Skin - No rashes? Neuro - grossly NF, conversant and appropriate I have reviewed the pertinent vital sign, laboratory, and imaging data. ASSESSMENT: # Acute hypoxic respiratory failure - resolved # PNA - suspected aspiration # Acute encephalopathy - concern for EtOH withdrawal given heavy EtOH abuse. Last drink 02/25. CT/MR brain without acute infarct. Likely component of metabolic/septic encephalopathy as well - improved # h/o CVA - noted on MR brain. ?chronic gliosis vs demyelination as well # Fever - improved # Asthma/COPD exacerbation - improved # Hyponatremia - resolved # Anemia # HTN # Obesity # GERD # h/o tobacco use PLAN: -O2 as needed -inhaled BD -wean steroids quickly -receiving empiric ABX -VTE ppx -thiamine / advance po -mobilize as able We are available as needed. The entirety of this encounter was done via Telemedicine 03/03/251801 <Electronically signed by Alli Linares MD> Cosigner Signature (if applicable): CC: ~ Signed [facility] Work Phone: [phone] 737-893108-16-2025 Progress note [facility] Medical Records Department [address] [place] [address] Progress Note - Hospitalist 03/03/25 1858 MR#: [id number] Acct: [id number] Name: ELIS BILLS Rep #:[id number] : 1960 64 From: Antonio Parker DO PCP: Anna Sanders PA-C Status:ADM IN Location: [facility] [place] [address] Reason for Visit Chief Complaint: AMS. Subjective Subjective Patient was seen and examined today, he appears to be stable to transfer to PCU for further care. Patient is currently on room air at this time. He was seen by physical therapy today and was at maximum assist. Objective Data Objective Data Vital Signs: Vital Signs Temp Pulse Resp BP Pulse Ox O2 Del Method O2 Flow Rate 98.5 F 71 17 150/80 H 95 Room Air 2 03/03/25 14:30 03/03/25 16:00 03/03/25 14:30 03/03/25 14:30 03/03/25 14:30 03/03/25 14:30 03/03/25 10:00 FiO2 40 03/02/25 08:00 Oxygen Flow Rate (L/min) 2 Oxygen Delivery Method Room Air Weight: 123.3 kg Body Mass Index (BMI) 40.1 Intake & Output: Intake and Output for Last 24 Hours 03/01/25 03/02/25 03/03/25 23:59 23:59 23:59 Intake Total 3822.09 / 3822.09 902 / 902 812 / 812 Output Total 2049 / 2049 2250 / 2250 750 / 750 Balance 1772.09 / 1772.09 -1348 / -1348 62 / 62 Lab / Micro Data 03/03/25 06:15 03/03/25 06:15 Labs: Laboratory Results - last 24 hr 03/03/25 06:15: WBC 10.7, RBC 3.82 L, Hgb 11.1 L, Hct 33.9 L, MCV 88.7, MCH 29.1, MCHC 32.7, RDW Std Deviation 48.5 H, RDW Coeff of Carlos 14.9 H, Plt Count 318, MPV 10.0, Sodium 142, Potassium 4.2, Chloride 111 H, Carbon Dioxide 22.7, Anion Gap 9, BUN 26 H, Creatinine 0.86, Estim Creat Clear Calc 111.12, Est GFR (MDRD) Non-Af 96, BUN/Creatinine Ratio 29.9 H, Glucose 134 H, Calcium 8.6 Micro: Microbiology 02/26/25 20:20 Urine, Clean Catch Urine Culture - Final Mixed Gram Positive Organisms 02/26/25 21:05 Blood Culture (Wb) - Anticubital Left Blood Culture - Preliminary No growth in 48 hours. 02/26/25 20:55 Blood Culture (Wb) - Left Wrist Blood Culture - Preliminary No growth in 48 hours. 02/28/25 20:15 Mucosa - Nasopharyngeal Coronavirus COVID-19 PCR - Final 02/28/25 18:20 Nasal Secretion MRSA (PCR) - Final 02/28/25 15:15 Urine Catheter - Schreiber Legionella Antigen - Final 02/28/25 15:15 Urine Catheter - Schreiber Streptococcus pneumoniae Antigen (M - Final 02/27/25 03:45 Mucosa - Nasopharyngeal Respiratory Panel (PCR) - Final Physical Exam Const alert, oriented x3 and no apparent distress Constitutional Narrative: Patient has class III obesity General Appearance: cooperative, well kempt and well developed Orientation / Consciousness: awake, oriented to person, oriented to place and oriented to time HEENT normocephalic, head/scalp atraumatic and moist oral mucous membranes Eyes PERRL, EOMs intact bilaterally and conjunctivae normal Neck supple, no JVD, thyroid normal and no carotid bruits General: trachea midline Resp normal respiratory effort, no retractions, no use of accessory muscles and clearto auscultation bilaterally Auscultation: Negative for rales, rhonchi or wheezes Cardio regular rate, regular rhythm, S1 normal heart sound, S2 normal heart sound, no murmurs, no rub and no gallops GI normal to inspection, nondistended, normoactive bowel sounds, soft to palpation,non-tender and non-distended Extremity no clubbing, cyanosis or edema Skin no rashes or lesions noted General Skin Exam: no breakdown Neuro oriented x3, CN's II-XII intact bilaterally, moves all extremities, no focal motor deficits and no sensory deficits noted Sensorium / Orientation: awake and alert Speech: speech normal Psych affect normal Assessment & Plan Assessment/Plan (1) Acute hypoxic respiratory failure: PLAN: Plan 1. Sepsis secondary to aspiration pneumonia-patient will remain on his current antibiotic per infectious diseases, again patient appears stable for transfer toP for further care #2 aspiration pneumonia-patient will remain on his present diet per speech #3 acute debility secondary to sepsis and aspiration pneumonia-PT and OT will work with the patient #4 acute respiratory failure-resolved at this time, patient is on room air #5 metabolic encephalopathy secondary to sepsis and pneumonia-patient is alert today and responds appropriately to simple questions #6 cerebrovascular disease-patient is on Plavix and a statin #7 chronic obstructive pulmonary disease-continue aerosol treatments Total clinical time spent by myself addressing the patient's medical issues, reviewing all of his data, and collaborating with patient's care team: 35-minutes Charges/Coding Visit Charges Inpatient E&M: 55280 Subs Hosp L2 03/03/25 1900 Cosigner Signature (if applicable): CC: ~ Signed [facility]08-16-2025 Progress note [facility] Medical Records Department [address] [place] [address] Progress Note - Supervisor [employer] 03/03/25 1749 MR#: [id number] Acct: [id number] Name: ELIS BILLS Rep #:[id number] : 1960 64 From: Alli Richard PCP: Anna Sanders PA-C Status:ADM IN Location: [facility]- [id number] Objective Data Objective Data Vital Signs: Vital Signs Last response 3 Temperature 36.9 C 03/03/25 14:30 Temperature Source Temporal 03/03/25 14:30 Pulse Rate 71 03/03/25 16:00 Pulse Strength Normal (2+) 03/02/25 22:00 Respiratory Rate 17 03/03/25 14:30 Respiratory Effort Normal, Non-Labored 03/03/25 04:00 Respiratory Depth Normal 03/03/25 04:00 Respiratory Pattern Tachypnea 03/03/25 04:00 Blood Pressure 150/80 H 03/03/25 14:30 Blood Pressure Mean 103 03/03/25 14:30 Blood Pressure Source Monitor 03/03/25 14:30 Blood Pressure Position Semi-Fowlers 03/03/25 14:30 Blood Pressure Location Left Arm 03/03/25 14:30 Pulse Ox 95 03/03/25 14:30 Oxygen Delivery Method Room Air 03/03/25 14:30 Oxygen Flow Rate (L/min) 2 03/03/25 10:00 Fraction of Inspired Oxygen (FIO2) 40 03/02/25 08:00 I&O: I&O Last 24 Hours 3 03/02/25 03/03/25 03/03/25 23:59 11:59 23:59 Intake Total 802 / 902 472 / 572 100 / 572 Output Total 1475 / 2250 750 / 750 Balance -673 / -1348 -278 / -178 100 / -178 I&O: Total Stay 3 02/26/25 20:48 thru 03/03/25 15:42 Intake Total 44538.20 Output Total 6428 Balance 5884.20 Current Meds Ordered / Administered: Current meds ordered / Administered 3 Generic Name Dose Route Start Last Admin Trade Name Freq PRN Reason Stop Dose Admin Acetaminophen 650 mg 03/01/25 01:35 03/01/25 05:49 Acetaminophen 325 Mg Tablet PO 650 mg Q4H PRN PRN Administration Pain 1-10 or Fever Albuterol/Ipratropium 3 ml 02/27/25 02:02 02/28/25 03:08 Ipratropium/Albuterol Sulfate 3 Ml Ampul.Neb INHALATION 3 ml Q4H PRN PRN Administration wheezing Albuterol/Ipratropium 3 ml 02/27/25 02:30 03/03/25 12:48 Ipratropium/Albuterol Sulfate 3 Ml Ampul.Neb INHALATION 3 ml Q6HWA.RT GABBY Administration Atorvastatin Calcium 80 mg 02/27/25 22:00 03/02/25 22:25 Atorvastatin Calcium 80 Mg Tablet PO 80 mg QHS GABBY Administration Budesonide 0.5 mg 02/28/25 18:15 03/03/25 06:58 Budesonide Respules 0.5 Mg/2 Ml Ampul.Neb. INHALATION 0.5 mg BID.RT GABBY Administration Chlorhexidine Gluconate 1 each 02/28/25 10:00 03/03/25 09:26 Chlorhexidine Gluc 2% Cloth 1 Each Towelette TOPICAL 1 each DAILY GABBY Administration Clopidogrel Bisulfate 75 mg 02/27/25 10:00 03/03/25 09:01 Clopidogrel Bisulfate 75 Mg Tablet PO 75 mg DAILY GABBY Administration Enoxaparin Sodium 40 mg 02/27/25 10:00 03/03/25 09:00 Enoxaparin 40 Mg/0.4 Ml Syringe SC 40 mg DAILY GABBY Administration Folic Acid 1 mg 02/27/25 08:00 03/03/25 09:00 Folic Acid 1 Mg Tablet PO 1 mg BREAKFAST GABBY Administration Hydroxyzine Pamoate 50 mg 02/27/25 02:02 02/28/25 21:19 Hydroxyzine Jodee 25 Mg Capsule PO 50 mg Q4H PRN PRN Administration mild anxiety Cefepime HCl 2 gm/ Sodium 100 mls @ 200 mls/hr 02/27/25 10:00 03/03/25 09:58 Chloride IV Infused Q12 GABBY Infusion Sodium Chloride 250 mls @ 15 mls/hr 02/27/25 02:04 IV .[id number] PRN Saline Flush Sodium Chloride 250 mls @ 15 mls/hr 02/27/25 02:04 IV .[id number] PRN Additional IVPB Infusion Metronidazole 500 mg in 100 mls @ 100 mls/hr 02/28/25 02:45 03/03/25 15:42 Flagyl IV Infused Q8 GABBY Infusion Pantoprazole Sodium 40 mg/ 100 mls @ 300 mls/hr 02/28/25 10:00 03/03/25 09:21 Sodium Chloride IV Infused Q24 GABBY Infusion Thiamine HCl 200 mg/ Sodium 52 mls @ 200 mls/hr 02/28/25 16:00 03/03/25 11:38 Chloride IV Infused DAILY GABBY Infusion Montelukast Sodium 10 mg 02/27/25 10:00 03/03/25 09:01 Montelukast 10 Mg Tablet PO 10 mg DAILY GABBY Administration Multivitamins 1 tablet 03/01/25 12:00 03/03/25 09:02 Multivitamins,Therapeutic Tablet PO 1 tablet LUNCH GABBY Administration Nicotine 14 mg 02/27/25 02:02 03/03/25 09:00 Nicotine 14 Mg Patch TD 14 mg DAILY GABBY Administration Ondansetron HCl 8 mg 02/27/25 02:02 Ondansetron 8 Mg Tablet PO Q8H PRN PRN NAUSEA Prednisone 20 mg 03/03/25 17:00 Prednisone 20 Mg Tablet PO BIDCM GABBY Sodium Chloride 10 - 40 ml 02/27/25 02:04 03/02/25 02:46 0.9% Saline Lock 10 Ml Syringe IV 10 ml UD PRN Administration SALINE FLUSH Trazodone HCl 100 mg 02/27/25 02:02 03/03/25 00:24 Trazodone 100 Mg Tablet PO 100 mg QHS PRN PRN Administration INSOMNIA Lab / Micro Data 03/03/25 06:15 03/03/25 06:15 Labs: Laboratory Results - last 24 hr 03/03/25 06:15: WBC 10.7, RBC 3.82 L, Hgb 11.1 L, Hct 33.9 L, MCV 88.7, MCH 29.1, MCHC 32.7, RDW Std Deviation 48.5 H, RDW Coeff of Carlos 14.9 H, Plt Count 318, MPV 10.0, Sodium 142, Potassium 4.2, Chloride 111 H, Carbon Dioxide 22.7, Anion Gap 9, BUN 26 H, Creatinine 0.86, Estim Creat Clear Calc 111.12, Est GFR (MDRD) Non-Af 96, BUN/Creatinine Ratio 29.9 H, Glucose 134 H, Calcium 8.6 Assessment and Plan . Assessment and plan: Subjective: Patient seen and examined using telemedicine. Chart and data reviewed. He is awake and alert. Up in a chair. Breathing RA comfortably. Noprecedex or benzodiazepines required. Fever appears significantly improved. Physical Exam: Gen - NAD, morbidly obese HEENT - MMM. Sclera anicteric Resp - decreased, CTA CV - RRR. No m/g/r Abd - Soft, NT, ND Ext - No c/c/e. Skin - No rashes? Neuro - grossly NF, conversant and appropriate I have reviewed the pertinent vital sign, laboratory, and imaging data. ASSESSMENT: # Acute hypoxic respiratory failure - resolved # PNA - suspected aspiration # Acute encephalopathy - concern for EtOH withdrawal given heavy EtOH abuse. Last drink 02/25. CT/MRbrain without acute infarct. Likely component of metabolic/septic encephalopathy as well - improved # h/o CVA - noted on MR brain. ?chronic gliosis vs demyelination as well # Fever - improved # Asthma/COPD exacerbation - improved # Hyponatremia - resolved # Anemia # HTN # Obesity # GERD # h/o tobacco use PLAN: -O2 as needed -inhaled BD -wean steroids quickly -receiving empiric ABX -VTE ppx -thiamine / advance po -mobilize as able We are available as needed. The entirety of this encounter was done via Telemedicine 03/03/25 1802 Cosigner Signature (if applicable): CC: ~ Signed [facility]08-15-2025 Progress note Author Armani Tolbert [facility] Note Date/Time March 02, 2025 2: 51pm [facility] Medical Records Department [address] [place] [address] Progress Note - Hospitalist 03/02/25 1058 MR#: [id number] Acct: [id number] Name: ELIS BILLS Rep #:[id number] : 1960 64 From: Armani ordoñez DO PCP: Anna Sanders PA-C Status:ADM IN Location: ICU ICU01-1 Reason for Visit Chief Complaint: AMS. Subjective Subjective Saw patient at bedside this morning. Patient more awake and alert today compared to yesterday. Has been off Precedex since yesterday evening. Did havemild belly breathing noted again this morning. However, has been satting in thehigh 90s on Airvo at low settings. He does report cough but denies any fevers or chills. Denies any other acute concerns this morning. Objective Data Objective Data Vital Signs: Vital Signs Temp Pulse Resp BP Pulse Ox O2 Del Method O2 Flow Rate 97.7 F L 70 26 H 150/89 H 97 Airvo 40 03/02/25 08:00 03/02/25 08:00 03/02/25 08:00 03/02/25 08:00 03/02/25 08:00 03/02/25 08:00 03/02/25 08:00 FiO2 40 03/02/25 08:00 Oxygen Flow Rate (L/min) 40 Oxygen Delivery Method Airvo Weight: 124.2 kg Body Mass Index (BMI) 40.5 Intake & Output: Intake and Output for Last 24 Hours 02/28/25 03/01/25 03/02/25 23:59 23:59 23:59 Intake Total 2166.11 / 2173.04 3822.09 / 3822.09 100 / 100 Output Total 1375 / 1375 2049 / 2049 775 / 775 Balance 791.11 / 798.04 1772.09 / 1772.09 -675 / -675 Lab / Micro Data 03/02/25 01:35 03/02/25 01:35 Labs: Laboratory Results - last 24 hr 02/27/25 03:15: Lyme Total Antibody Negative 03/01/25 04:36: Procalcitonin 1.22 H 03/02/25 01:35: WBC 13.9 H, RBC 3.87 L, Hgb 11.3 L, Hct 34.8 L, MCV 89.9, MCH 29.2, MCHC 32.5, RDW Std Deviation 48.7 H, RDW Coeff of Carlos 14.9 H, Plt Count 274, MPV 9.8, Sodium 137, Potassium 4.3, Chloride 106, Carbon Dioxide 18.4 L, Anion Gap 12, BUN 22 H, Creatinine 1.03, Estim Creat Clear Calc 93.47, Est GFR (MDRD) Non-Af 81, BUN/Creatinine Ratio 20.9 H, Glucose 123 H, Calcium 8.4, Vancomycin Trough 21.3 H Micro: Microbiology 02/26/25 20:20 Urine, Clean Catch Urine Culture - Final Mixed Gram Positive Organisms 02/26/25 21:05 Blood Culture (Wb) - Anticubital Left Blood Culture - Preliminary No growth in 48 hours. 02/26/25 20:55 Blood Culture (Wb) - Left Wrist Blood Culture - Preliminary No growth in 48 hours. 02/28/25 20:15 Mucosa - Nasopharyngeal Coronavirus COVID-19 PCR - Final 02/28/25 18:20 Nasal Secretion MRSA (PCR) - Final 02/28/25 15:15 Urine Catheter - Schreiber Legionella Antigen - Final 02/28/25 15:15 Urine Catheter - Schreiber Streptococcus pneumoniae Antigen (M - Final 02/27/25 03:45 Mucosa - Nasopharyngeal Respiratory Panel (PCR) - Final ABG Data ABG results: ABG 03/01/25 11:06 Specimen Type ART Sample Site R Radial pH 7.40 Bicarbonate Actual 22.8 Total CO2 24 Base Excess -2 O2 Saturation 95 O2 % 45.0 ABG pCO2 36.7 ABG pO2 77 Ryan Test Positive O2 Delivery Device Not entered Vent Mode Not entered Clinical Comments airvo Physical Exam Const alert and no apparent distress Constitutional Narrative: Elderly male, class III obesity, mild somnolence but more awake and alert appearing compared to yesterday, answering questions appropriately, in no acute distress. General Appearance: cooperative and comfortable Orientation / Consciousness: lethargic HEENT normocephalic, head/scalp atraumatic, hearing grossly normal bilaterally, nasal mucous membranes and turbinates normal and moist oral mucous membranes Eyes PERRL, EOMs intact bilaterally and conjunctivae normal Neck full ROM Chest inspection of chest normal Resp Resp Narrative: Mild increased work of breathing with use of accessory abdominal muscles noted, improving. Crackles noted in bilateral lower lungs, worse on right, similar to yesterday. No wheezing noted. Cardio regular rate, regular rhythm, no murmurs and peripheral pulses 2+ throughout GI normal to inspection, nondistended, normoactive bowel sounds, soft to palpation,non-tender and non-distended Back/Spine normal ROM Extremity Extremity Narrative: Trace lower extremity edema noted. Skin no rashes or lesions noted Assessment & Plan Assessment/Plan (1) Acute hypoxic respiratory failure: (2) Aspiration pneumonia: QUALIFIERS: Aspiration pneumonia type: unspecified Laterality: right Lung location: lower lobe of lung Qualified Code(s): J69.0 - Pneumonitis due to inhalation of food and vomit (3) Acute metabolic encephalopathy: PLAN: Plan Patient is a 64-year-old male who presented to [facility] ED on 02/26/2025 with altered mentation. 1. Acute hypoxic respiratory failure due to aspiration pneumonia versus pneumonitis and mild HFpEF exacerbation ? 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 Not on home oxygen. Present with cough, feversto 103F and leukocytosis. CT chest showed right lower lobe consolidative airspace disease concerning for aspiration pneumonia. Had witnessed aspiration event on manager filter of hospital day 2 requiring transfer to the ICU. CTA chest on 02/28 showed no PE, did show substantially worse right lower lobe pneumonia with reactive lymphadenopathy. BNP 1400 on 02/28 concerning for new onset heart failure. Echo showed EF 50%, mild concentric LV hypertrophy, no other concerning findings. BNP worsened to 2900 on 03/01 despite good diuresis on IV Lasix; suspect this is secondary to elevated pulmonary pressures in setting of severe aspiration pneumonia/pneumonitis. Per ID, suspect fevers are multifactorial from pneumonia as well as alcohol withdrawal as below. Infectious workup negative to this point. Initially on broad-spectrum antibiotics with IV vancomycin, cefepime, doxycycline and Flagyl. Vancomycin and doxycycline discontinued on 03/02, continue cefepime and Flagyl. Weaning oxygen as able; currently on 4 L nasal cannula at rest. Holding on further diuresis for now, can consider spot diuresis as needed. Continue scheduled DuoNebs. Speech therapy following for dysphagia as below. 2. Acute alcohol withdrawal with concern for DTs ? Reportedly drinks 8-9 beers daily. Alcohol level negative on admit. Per family, has gone through withdrawal at home in the past but has never been hospitalized for this. Notably was confused on admission but became significantly more confused and agitated shortly after arriving to the ICU on hospital day 2. Initiated on phenobarbital taper with some improvement in symptoms but not resolution of symptoms. Required Precedex taper for agitation for time; weaned off Precedex by evening of 03/01. Continue phenobarbital taper and other as needed medications per alcohol withdrawal order set. 3. Acute encephalopathy, improving ? Suspected multifactorial due to both respiratory failure due to pneumonia as well as alcohol withdrawal as above. Weaned off Precedex drip on evening of 03/01 as above. Mental status improving, alert and answering questions with short appropriate responses on 03/02. Continue treatment as above. Avoiding further steady medications as able. 4. Hyponatremia, improving ? Sodium 126 on admit. Suspect due to both beer potomania and volume overload. Improved with IV diuresis, most recent sodium 134 on 03/01. Continue to monitor sodium level daily. 5. Dysphagia ? Speech therapy following. MBSS completed on 03/02, showed moderate oropharyngeal dysphagia. Per speech, plan is for pur?ed textures and thin liquid diet. However, speech also noted that if patient has worsening respiratory status, nursing staff is to make the patient n.p.o. to avoid furtheraspiration events. Chronic medical conditions: ? Class II obesity: BMI 39 on admit. Complicates hospital course and care. ? Nicotine dependence: Nicotine patch in place. Cessation advised. ? Hypertension/hyperlipidemia: Holding home lisinopril given infection as above. Continue home statin. ? GERD: Continue home PPI. ? History of CVA: Continue home Plavix. ? Asthma/COPD: Not in acute exacerbation. Continue home inhalers as well as scheduled DuoNebs as above. DVT prophylaxis: Lovenox CODE STATUS: Full code, verified Expected disposition: TBD Total clinical time spent by myself addressing the patient's medical issues, reviewing all the data, and collaborating with patient's care team: 35 minutes. Charges/Coding Visit Charges Inpatient E&M: 95209 Subs Hosp L2 03/02/25 1372 <Electronically signed by Armani Tolbert DO> Cosigner Signature (if applicable): CC: ~ Signed [facility] Work Phone: 1(908) 250-972208-15-2025 Progress note [facility] Medical Records Department [address] [place] [address] Progress Note - Hospitalist 03/02/25 1058 MR#: [id number] Acct: [id number] Name: ELIS BILLS Rep #:[id number] : 1960 64 From: Armani ordoñez DO PCP: Anna Sanders PA-C Status:ADM IN Location: ICU ICU01-1 Reason for Visit Chief Complaint: AMS. Subjective Subjective Saw patient at bedside this morning. Patient more awake and alert today compared to yesterday. Has been off Precedex since yesterday evening. Did havemild belly breathing noted again this morning. However, has been satting in thehigh 90s on Airvo at low settings. He does report cough but denies anyfevers or chills. Denies any other acute concerns this morning. Objective Data Objective Data Vital Signs: Vital Signs Temp Pulse Resp BP Pulse Ox O2 Del Method O2 Flow Rate 97.7 F L 70 26 H 150/89 H 97 Airvo 40 03/02/25 08:00 03/02/25 08:00 03/02/25 08:00 03/02/25 08:00 03/02/25 08:00 03/02/25 08:00 03/02/25 08:00 FiO2 40 03/02/25 08:00 Oxygen Flow Rate (L/min) 40 Oxygen Delivery Method Airvo Weight: 124.2 kg Body Mass Index (BMI) 40.5 Intake & Output: Intake and Output for Last 24 Hours 02/28/25 03/01/25 03/02/25 23:59 23:59 23:59 Intake Total 2166.11 / 2173.04 3822.09 / 3822.09 100 / 100 Output Total 1375 / 1375 2049 / 2049 775 / 775 Balance 791.11 / 798.04 1772.09 / 1772.09 -675 / -675 Lab / Micro Data 03/02/25 01:35 03/02/25 01:35 Labs: Laboratory Results - last 24 hr 02/27/25 03:15: Lyme Total Antibody Negative 03/01/25 04:36: Procalcitonin 1.22 H 03/02/25 01:35: WBC 13.9 H, RBC 3.87 L, Hgb 11.3 L, Hct 34.8 L, MCV 89.9, MCH 29.2, MCHC 32.5, RDW Std Deviation 48.7 H, RDW Coeff of Carlos 14.9 H, Plt Count 274, MPV 9.8, Sodium 137, Potassium 4.3, Chloride 106, Carbon Dioxide 18.4 L, Anion Gap 12, BUN 22 H, Creatinine 1.03, Estim Creat Clear Calc 93.47, Est GFR (MDRD) Non-Af 81, BUN/Creatinine Ratio 20.9 H, Glucose 123 H, Calcium 8.4, Vancomycin Trough 21.3 H Micro: Microbiology 02/26/25 20:20 Urine, Clean Catch Urine Culture - Final Mixed Gram Positive Organisms 02/26/25 21:05 Blood Culture (Wb) - Anticubital Left Blood Culture - Preliminary No growth in 48 hours. 02/26/25 20:55 Blood Culture (Wb) - Left Wrist Blood Culture - Preliminary No growth in 48 hours. 02/28/25 20:15 Mucosa - Nasopharyngeal Coronavirus COVID-19 PCR - Final 02/28/25 18:20 Nasal Secretion MRSA (PCR) - Final 02/28/25 15:15 Urine Catheter - Schreiber Legionella Antigen - Final 02/28/25 15:15 Urine Catheter - Schreiber Streptococcus pneumoniae Antigen (M - Final 02/27/25 03:45 Mucosa - Nasopharyngeal Respiratory Panel (PCR) - Final ABG Data ABG results: ABG 03/01/25 11:06 Specimen Type ART Sample Site R Radial pH 7.40 Bicarbonate Actual 22.8 Total CO2 24 Base Excess -2 O2 Saturation 95 O2 % 45.0 ABG pCO2 36.7 ABG pO2 77 Ryan Test Positive O2 Delivery Device Not entered Vent Mode Not entered Clinical Comments airvo Physical Exam Const alert and no apparent distress Constitutional Narrative: Elderly male, class III obesity, mild somnolence but more awake and alert appearing compared to yesterday, answering questions appropriately, in no acute distress. General Appearance: cooperative and comfortable Orientation / Consciousness: lethargic HEENT normocephalic, head/scalp atraumatic, hearing grossly normal bilaterally, nasal mucous membranes and turbinates normal and moist oral mucous membranes Eyes PERRL, EOMs intact bilaterally and conjunctivae normal Neck full ROM Chest inspection of chest normal Resp Resp Narrative: Mild increased work of breathing with use of accessory abdominal muscles noted, improving. Cracklesnoted in bilateral lower lungs, worse on right, similar to yesterday. No wheezing noted. Cardio regular rate, regular rhythm, no murmurs and peripheral pulses 2+ throughout GI normal to inspection, nondistended, normoactive bowel sounds, soft to palpation,non-tender and non-distended Back/Spine normal ROM Extremity Extremity Narrative: Trace lower extremity edema noted. Skin no rashes or lesions noted Assessment & Plan Assessment/Plan (1) Acute hypoxic respiratory failure: (2) Aspiration pneumonia: QUALIFIERS: Aspiration pneumonia type: unspecified Laterality: right Lung location: lower lobe of lung Qualified Code(s): J69.0 - Pneumonitis due to inhalation of food and vomit (3) Acute metabolic encephalopathy: PLAN: Plan Patient is a 64-year-old male who presented to [facility] ED on 02/26/2025 with altered mentation. 1. Acute hypoxic respiratory failure due to aspiration pneumonia versus pneumonitis and mild HFpEF exacerbation ? 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 Not on home oxygen. Present with cough, feversto 103F and leukocytosis. CT chest showed right lower lobe consolidative airspace disease concerning for aspiration pneumonia. Had witnessed aspiration event on manager filter of hospital day 2 requiring transfer to the ICU. CTA chest on 02/28 showed no PE, did show substantially worse right lower lobe pneumonia with reactive lymphadenopathy. BNP 1400 on 02/28 concerning for new onset heart failure. Echo showed EF 50%, mild concentric LV hypertrophy, no other concerning findings. BNP worsened to 2900 on 03/01 despite good diuresis on IV Lasix; suspect this is secondary to elevated pulmonary pressures in setting of severe aspiration pneumonia/pneumonitis. Per ID, suspect fevers are multifactorial from pneumonia as well as alcohol withdrawal as below. Infectious workup negative to this point. Initially on broad-spectrum antibiotics with IV vancomycin, cefepime, doxycycline and Flagyl. Vancomycin and doxycycline discontinued on 03/02, continue cefepime and Flagyl. Weaning oxygen as able; currently on 4 L nasal cannula at rest. Holding on further diuresis for now, can consider spot diuresis as needed. Continue scheduled DuoNebs. Speech therapy following for dysphagia as below. 2. Acute alcohol withdrawal with concern for DTs ? Reportedly drinks 8-9 beers daily. Alcohol level negative on admit. Per family, has gone through withdrawal at home in the past but has never been hospitalized for this. Notably was confused on admission but became significantly more confused and agitated shortly after arriving to the ICU on hospital day 2. Initiated on phenobarbital taper with some improvement in symptoms but not resolution ofsymptoms. Required Precedex taper for agitation for time; weaned off Precedex by evening of 03/01. Continue phenobarbital taper and other as needed medications per alcohol withdrawal order set. 3. Acute encephalopathy, improving ? Suspected multifactorial due to both respiratory failure due to pneumonia as well as alcohol withdrawal as above. Weaned off Precedex drip on evening of 03/01 as above. Mental status improving, alert and answering questions with short appropriate responses on 03/02. Continue treatment as above. Avoiding further steady medications as able. 4. Hyponatremia, improving ? Sodium 126 on admit. Suspect due to both beer potomania and volume overload. Improved with IV diuresis, most recent sodium 134 on 03/01. Continue to monitor sodium level daily. 5. Dysphagia ? Speech therapy following. MBSS completed on 03/02, showed moderate oropharyngeal dysphagia. Per speech, plan is for pur?ed textures and thin liquid diet. However, speech also noted that if patient has worsening respiratory status, nursing staff is to make the patient n.p.o. to avoid furtheraspiration events. Chronic medical conditions: ? Class II obesity: BMI 39 on admit. Complicates hospital course and care. ? Nicotine dependence: Nicotine patch in place. Cessation advised. ? Hypertension/hyperlipidemia: Holding home lisinopril given infection as above. Continue home statin. ? GERD: Continue home PPI. ? History of CVA: Continue home Plavix. ? Asthma/COPD: Not in acute exacerbation. Continue home inhalers as well as scheduled DuoNebs as above. DVT prophylaxis: Lovenox CODE STATUS: Full code, verified Expected disposition: TBD Total clinical time spent by myself addressing the patient's medical issues, reviewing all the data, and collaborating with patient's care team: 35 minutes. Charges/Coding Visit Charges Inpatient E&M: 12675 Subs Hosp L2 03/02/25 6293 Cosigner Signature (if applicable): CC: ~ Signed [facility]08-15-2025 Progress [facility] Date/Time March 02, 2025 12 :44pm [facility] Medical Records Department [address] [place] [address] Progress Note - Infect Disease 03/02/25 1243 MR#: [id number] Acct: [id number] Name: ELIS BILLS Rep #:[id number] : 1960 64 From: Pilar villavicencio MD PCP: Anna Sanders PA-C Status:ADM IN Location: ICU ICU01-1 Physical Exam Narrative Feeling better, fever improved, mild cough and dyspnea Const alert and no apparent distress General Appearance: cooperative Resp Auscultation: rhonchi and wheezes Cardio regular rate and regular rhythm GI soft to palpation, non-tender and non-distended Skin no rashes or lesions noted ID ID: Route of nutrition/ use of supplements: [] Nutritional Intake: [] IV Site: [] Schreiber Catheter: [] Assessment & Plan Assessment/Plan (1) Sepsis: QUALIFIERS: Sepsis type: sepsis due to unspecified organism Sepsis acute organ dysfunction status: with acute organ dysfunction Severe sepsis acute organ dysfunction type: encephalopathy Severe sepsis shock status: without septic shock Qualified Code(s): A41.9 - Sepsis, unspecified organism; R65.20 - Severe sepsis without septic shock; G93.41 - Metabolic encephalopathy PLAN: Infectious workup neg so far besides for presumed aspiration pneumonia. Lyme neg. Etoh withdrawal could be playing a part in his temps. Fever curve much improved, mental status better. Will stop doxy and vanc. Cont cefepime and flagyl for now. Will follow (2) Aspiration pneumonia: QUALIFIERS: Aspiration pneumonia type: unspecified Laterality: right Lung location: lower lobe of lung Qualified Code(s): J69.0 - Pneumonitis due to inhalation of food and vomit (3) Acute metabolic encephalopathy: 03/02/25 1244 <Electronically signed by Pilar Gannon MD> Cosigner Signature (if applicable): CC: ~ Signed [facility] Work Phone: [phone] Procedure note [facility] Speech Pathology [address] [place] [address] Modified Barium Swallow Study MR#: [id number] Acct: [id number] Name: ELIS BILLS Rep #:[id number] : 1960 64 From: Kip Beaulieu, [facility] Modified Barium Swallow Patient Information Study Date: 03/02/25 Study Time: 10:23 Direct Billable Minutes: 116 Total Minutes procedure & reportin Diagnosis: Aspiration PNA J18.9 Referring Physician: Armani Tolbert Reason for Referral: Assess swallow function, assess risk for aspiration, and determine recommendations for least restrictive diet textures and compensatory strategies to improve safety of swallow. Medical History: Per physician H&P, ?past medical history of essential hypertension; on lisinopril, hyperlipidemia; on atorvastatin, obesity; with BMI of 38.7 this admission, history of tobacco abuse; with subsequent asthma/COPD on umeclidinium-vilanterol, ipratropium-albuterol q. 4 hours prn plus montelukast, history of EtOH abuse; with patient admitted to drinking ~8-9 beers daily on folate and thiamine supplementation, GERD; on esomeprazole and OA; with spinal stenosis of the lumbar region (without claudication).? Patient presented to [facility] ED 02/27/2025 w/ AMS. Per , pt fell day before admission. He wasn?t acting normally beginning the evening of February 26, 2025. He reported complaints of knee pain at home, as well. activated EMS due to confusion. Pt had fever and cough w/ CT scan of the chest revealing RLL Pneumonia. 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 After further work up, he was admitted to ICU for ongoing care. He was referred for ST dysphagia evaluation following aspiration episode with watermelon and was made strict NPO until evaluation. BSE recommended NPO w/ sipsand chips; however, respiratory status worsened 03/01/2025 and he was made strictNPO. CAR MOVER re-assessed pt at bedside today and recommended MBSS today if pt was able to be weaned tonasal cannula from Airvo. Pt was weaned to nasal cannula and cleared by physician for participationin MBSS. Current Diet Ordered: NPO, ok for meds whole in Dentition: Natural Teeth and Missing Teeth Mental Status: Impaired (Confusion) Respiratory Status: Oxygenating on 4L/M nasal cannula (6L via NC) Penetration-Aspiration Scale Penetration-Aspiration Scale: OBJECTIVE ASSESSMENT OF SWALLOW FUNCTION (QUANTITATIVE ? PER TRIAL): PENETRATION / ASPIRATION SCALE (FLOWERS): 1 = does not enter airway 2 = enters airway/above vocal folds/ejected 3 = enters airway/above vocal folds/not ejected 4 = enters airway/contacts vocal folds/ejected 5 = enters airway/contacts vocal folds/not ejected 6 = enters airway/below vocal folds/ejected 7 = enters airway/below vocal folds/not ejected despite effort 8 = enters airway/below vocal folds/no effort VIDEOFLOROSCOPIC SCALE SCORE (FLOWERS): Grade I = aspiration of material that has penetrated into the laryngeal vestibule, intact cough reflex Grade II = aspiration < 10 % of the bolus, intact cough reflex Grade III = aspiration of < 10 % of the bolus, reduced cough reflex or aspiration of > 10 % of the bolus, intact cough reflex Grade IV = aspiration of > 10 % of the bolus, reduced cough reflex Penetration-Aspiration Scale Score Thin Liquid via teaspoon: Result: 1= does not enter airway Thin Liquid via teaspoon Trial 2: Result: 1= does not enter airway Thin Liquid via small single sip: cup: Result: 2= enter airway/above vocal folds/ejected Enlow Thick Liquid via sequential sips: cup: Result: 7= enters airways/below vocal folds/not ejected despite effort Comment: Attempted esophageal screen; however, unable to clearly view esophagus due to pt's body habitus. Pudding via teaspoon: Result: 1= does not enter airway 1/2 Cookie: Result: 1= does not enter airway Comment: Per RN, Keith, pt's SpO2 dropped from 96% to 87% while chewing. Once chewing stopped, SpO2 returned to mid 90s. Thin Liquid via single sip: straw: Result: 2= enter airway/above vocal folds/ejected Comment: Large sip Thin Liquid via single sip: straw Trial 2: Result: 5= enters airways/contacts vocal folds/not ejected Comment: Mod-max verbal cues for small sip Thin Liquid via teaspoon Trial 3: Result: 2= enter airway/above vocal folds/ejected Thin Liquid via teaspoon Trial 4: Result: 1= does not enter airway Oral Phase Labial Seal: Interlabial escape, no progression to anterior lip Tongue Control During Bolus Hold: Posterior escape of greater than half of bolus Bolus Preparation/Mastication: Disorganized chewing/mashing with solid pieces ofbolus unchewed (Posterior loss to the pyriform sinuses) Bolus Transport/Lingual Motion: Slowed tongue motion Oral Residue: Residue collection on oral structures Pharyngeal Phase Initiation of Pharyngeal Swallow: Bolus head in pyriforms Soft Palate Elevation: Trace column of contrast/air between soft palate and pharyngeal wall Laryngeal Elevation: Partial superior movement thyroid cart/partial apprx aryt- epig petiole Anterior Hyoid Excursion: Partial anterior movement Epiglottic Movement: Complete inversion Laryngeal Vestibule Closure at Height of Swallow: Incomplete; narrow column of air/contrast in laryngeal vestibule Pharyngeal Stripping Wave: Present - complete Tongue Base Retraction: Narrow column of contrast between tongue base & post. pharyngeal wall Pharyngeal Residue: Trace residue within or on pharyngeal structures Diagnosis/Impression Diagnosis: Moderate oropharyngeal dysphagia R13.12 MBS Impressions: Keith CHAUDHARY, present for MBSS. CAR MOVER could not definitively rule out aspiration for any of the above mentioned trials due to pt's body habitus. Additionally, CAR MOVER was unable to score UES opening/duration or complete esophageal screens due to pt's body habitus. The oral phase is primarily marked by... -Decreased bolus control w/ premature posterior loss of cookie and liquids to the pyriform sinuses prior to swallow onset. Mildly thick liquids spilled to thelaryngeal vestibule prior to swallow onset resulting in aspiration. -Slowed tongue motion for A-P transport. -Disorganized mastication of cookie. Of note, pt's SpO2 dropped from 96% to 87% while chewing. Oncechewing stopped, SpO2 returned to mid 90s. RN, Keith, and CAR MOVER suspect desaturation secondary to exertion of chewing. The pharyngeal phase is primarily marked by... -Delayed swallow onset. -Decreased airway closure due to decreased laryngeal elevation and anterior hyoid excursion. -Aspiration of mildly thick liquids via cup (self-administered) and deep laryngeal penetration to the vocal folds of thin liquids via single straw sip w/strong reflexive cough response in both instances. Recommendations Diet: Puree Textures and Thin Liquids Compensatory Strategies: Small Bites, Liquid by Teaspoon Only, Slow Rate, Sitting upright and Remain sitting upright for 30 minutes after PO intake Supervision: Total Feed (By staff due to impulsivity and desaturation w/ minimalexertion) Recommend Repeat Modified Barium Swallow: TBD Need for Skilled Speech Therapy Services: Yes Comment: -Train the patient, family, and staff in use of strategies to decrease risk for aspiration. -Ongoing assessment of diet tolerance of recommended textures. Monitor respiratory status closely. As respiratory status improves, would recommend trialing small sips of thin water via cup and soft solids w/ treating CAR MOVER to consider the patient for further diet advancement. Treating CAR MOVER is ok to adv ancethe patient at bedside if tolerating these trials well as he did present w/ a strong reflexive cough to aspiration and deep laryngeal penetration during this MBSS. -Train the patient in oropharyngeal exercise program to improve bolus control, swallow onset, and airway closure (lingual resistance, Axel, effortful, CTAR). Education Completed: 1. Described result of evaluation. and 7. Pt requires further education on strategies & risks. Comment: CAR MOVER educated pt, RN, and COORDINATING PRODUCER in results and recommendations of the MBSS and posted recommendations in the patient's room. CAR MOVER asked Kip CHAUDHARY, to please make the patient NPO is worsening respiratory status after diet has been initiated. Status Active ST Patient: Active Contact Information [facility] Speech Therapy:: Kip Rodriguez M.A. CCC-CAR MOVER? Speech-Language Pathologist?? [facility] [address] [place] [address]? [email or web address]?? [phone] 03/02/25 Cory Oneill CCC-CAR MOVER> Date/Time Kip Rodriguez M.A., CCC-CAR MOVER Co-Signature Required for all Medicare patients Date/Time Co-Signature CC: ~ [facility]08-15-2025 Progress note [facility] Medical Records Department [address] [place] [address] Progress Note - Infect Disease 03/02/25 1243 MR#: [id number] Acct: [id number] Name: ELIS BILLS Rep #:[id number] : 1960 64 From: Pilar villavicencio MD PCP: Anna Sanders PA-C Status:ADM IN Location: ICU ICU01-1 Physical Exam Narrative Feeling better, fever improved, mild cough and dyspnea Const alert and no apparent distress General Appearance: cooperative Resp Auscultation: rhonchi and wheezes Cardio regular rate and regular rhythm GI soft to palpation, non-tender and non-distended Skin no rashes or lesions noted ID ID: Route of nutrition/ use of supplements: [] Nutritional Intake: [] IV Site: [] Schreiber Catheter: [] Assessment & Plan Assessment/Plan (1) Sepsis: QUALIFIERS: Sepsis type: sepsis due to unspecified organism Sepsis acute organ dysfunction status: with acute organ dysfunction Severe sepsis acute organ dysfunction type: encephalopathy Severe sepsis shock status: without septic shock Qualified Code(s): A41.9 - Sepsis, unspecified organism; R65.20- Severe sepsis without septic shock; G93.41 - Metabolic encephalopathy PLAN: Infectious workup neg so far besides for presumed aspiration pneumonia. Lyme neg. Etoh withdrawal could be playing a part in his temps. Fever curve much improved, mental status better. Will stop doxy and vanc. Cont cefepime and flagyl for now. Will follow (2) Aspiration pneumonia: QUALIFIERS: Aspiration pneumonia type: unspecified Laterality: right Lung location: lower lobe of lung Qualified Code(s): J69.0 - Pneumonitis due to inhalation of food and vomit (3) Acute metabolic encephalopathy: 03/02/25 1244 Cosigner Signature (if applicable): CC: ~ Signed [facility]08-15-2025 Progress note Author Gamal Calero [facility] Note Date/Time March 02, 2025 9: 38[facility] Medical Records Department [address] [place] [address] Progress Note - Supervisor [employer] 03/02/25 0853 MR#: [id number] Acct: [id number] Name: ELIS BILLS Rep #:[id number] : 1960 64 From: Gamal Calero MD PCP: Anna Sanders PA-C Status:ADM IN Location: ICU ICU01-1 Objective Data Objective Data Vital Signs: Vital Signs Last response 3 Temperature 36.5 C L 03/02/25 08:00 Temperature Source Core 03/02/25 08:00 Pulse Rate 70 03/02/25 08:00 Pulse Strength Normal (2+) 03/01/25 10:00 Respiratory Rate 26 H 03/02/25 08:00 Respiratory Effort Normal, Non-Labored 03/02/25 08:00 Respiratory Depth Normal 03/02/25 08:00 Respiratory Pattern Tachypnea 03/02/25 08:00 Blood Pressure 150/89 H 03/02/25 08:00 Blood Pressure Mean 109 03/02/25 08:00 Blood Pressure Source Monitor 03/02/25 08:00 Blood Pressure Position Semi-Fowlers 03/02/25 08:00 Blood Pressure Location Right Forearm 03/02/25 08:00 Pulse Ox 97 03/02/25 08:00 Oxygen Delivery Method Airvo 03/02/25 08:00 Oxygen Flow Rate (L/min) 40 03/02/25 08:00 Fraction of Inspired Oxygen (FIO2) 40 03/02/25 08:00 I&O: I&O Last 24 Hours 3 03/01/25 03/01/25 03/02/25 11:59 23:59 11:59 Intake Total 2832.09 / 3822.09 990 / 3822.09 100 / 100 Output Total 1250 / 0 800 / 2050 775 / 775 Balance 1582.09 / 1772.09 190 / 1772.09 -675 / -675 I&O: Total Stay 3 02/26/25 20:48 thru 03/02/25 06:09 Intake Total 82818.20 Output Total 4203 Balance 6735.20 Current Meds Ordered / Administered: Current meds ordered / Administered 3 Generic Name Dose Route Start Last Admin Trade Name Freq PRN Reason Stop Dose Admin Acetaminophen 650 mg 02/28/25 11:30 03/01/25 20:27 Acetaminophen 650 Mg Suppository RC 650 mg Q4H PRN PRN Administration FEVER Acetaminophen 650 mg 03/01/25 01:35 03/01/25 05:49 Acetaminophen 325 Mg Tablet PO 650 mg Q4H PRN PRN Administration Pain 1-10 or Fever Albuterol/Ipratropium 3 ml 02/27/25 02:02 02/28/25 03:08 Ipratropium/Albuterol Sulfate 3 Ml Ampul.Neb INHALATION 3 ml Q4H PRN PRN Administration wheezing Albuterol/Ipratropium 3 ml 02/27/25 02:30 03/02/25 07:18 Ipratropium/Albuterol Sulfate 3 Ml Ampul.Neb INHALATION 3 ml Q6HWA.RT GABBY Administration Atorvastatin Calcium 80 mg 02/27/25 22:00 03/01/25 19:37 Atorvastatin Calcium 80 Mg Tablet PO Not Given QHS GABBY Budesonide 0.5 mg 02/28/25 18:15 03/02/25 07:18 Budesonide Respules 0.5 Mg/2 Ml Ampul.Neb. INHALATION 0.5 mg BID.RT GABBY Administration Chlorhexidine Gluconate 1 each 02/28/25 10:00 03/01/25 05:45 Chlorhexidine Gluc 2% Cloth 1 Each Towelette TOPICAL 1 each DAILY GABBY Administration Clopidogrel Bisulfate 75 mg 02/27/25 10:00 03/01/25 10:47 Clopidogrel Bisulfate 75 Mg Tablet PO Not Given DAILY GABBY Dicyclomine HCl 20 mg 02/27/25 02:02 Dicyclomine 10 Mg Capsule PO Q6H PRN PRN abdominal discomfort Enoxaparin Sodium 40 mg 02/27/25 10:00 03/01/25 08:34 Enoxaparin 40 Mg/0.4 Ml Syringe SC 40 mg DAILY GABBY Administration Folic Acid 1 mg 02/27/25 08:00 03/02/25 07:46 Folic Acid 1 Mg Tablet PO Not Given BREAKFAST GABBY Gabapentin 300 mg 02/27/25 02:02 02/27/25 12:15 Gabapentin 300 Mg Capsule PO 300 mg Q8H PRN PRN Administration moderate to severe anxiety Hydroxyzine Pamoate 50 mg 02/27/25 02:02 02/28/25 21:19 Hydroxyzine Jodee 25 Mg Capsule PO 50 mg Q4H PRN PRN Administration mild anxiety Vancomycin IV-PHARMACY TO DOSE 500 mls @ 250 mls/hr 02/27/25 02:02 1 each/ Sodium Chloride IV X1 PRN Rx to Dose Protocol Cefepime HCl 2 gm/ Sodium 100 mls @ 200 mls/hr 02/27/25 10:00 03/01/25 21:13 Chloride IV Infused Q12 GABBY Infusion Sodium Chloride 250 mls @ 15 mls/hr 02/27/25 02:04 IV .[id number] PRN Saline Flush Sodium Chloride 250 mls @ 15 mls/hr 02/27/25 02:04 IV .[id number] PRN Additional IVPB Infusion Metronidazole 500 mg in 100 mls @ 100 mls/hr 02/28/25 02:45 03/02/25 06:09 Flagyl IV Infused Q8 GABBY Infusion Pantoprazole Sodium 40 mg/ 100 mls @ 300 mls/hr 02/28/25 10:00 03/01/25 11:01 Sodium Chloride IV Infused Q24 GABBY Infusion Dexmedetomidine HCl 400 mcg/ 100 mls @ 15.625 mls/hr 02/28/25 10:30 03/02/25 06:13 Sodium Chloride CONT INF Not Given .Q6H24M GBABY Protocol 0.5 MCG/KG/HR Doxycycline Hyclate 100 mg/ 250 mls @ 250 mls/hr 02/28/25 16:00 03/01/25 23:37 Sodium Chloride IV Infused Q12 GABBY Infusion Thiamine HCl 200 mg/ Sodium 52 mls @ 200 mls/hr 02/28/25 16:00 03/01/25 11:01 Chloride IV Infused DAILY GABBY Infusion Loperamide HCl 2 mg 02/27/25 02:02 Loperamide 2 Mg Capsule PO Q4H PRN PRN DIARRHEA/LOOSE STOOLS Lorazepam 1 mg 03/01/25 01:11 03/02/25 02:46 Lorazepam 2 Mg/Ml Syringe IV 1 mg Q4H PRN PRN Administration Alcohol Withdrawal Methylprednisolone Sodium Succinate 40 mg 03/01/25 10:00 03/01/25 21:19 Methylprednisolone Sod Succ 40 Mg/Ml Vial IV 40 mg Q12 GABBY Administration Montelukast Sodium 10 mg 02/27/25 10:00 03/01/25 10:47 Montelukast 10 Mg Tablet PO Not Given DAILY GABBY Multivitamins 1 tablet 03/01/25 12:00 03/01/25 11:01 Multivitamins,Therapeutic Tablet PO Not Given LUNCH GABBY Nicotine 14 mg 02/27/25 02:02 03/01/25 08:35 Nicotine 14 Mg Patch TD 14 mg DAILY GABBY Administration Ondansetron HCl 8 mg 02/27/25 02:02 Ondansetron 8 Mg Tablet PO Q8H PRN PRN NAUSEA Phenobarbital 65 mg 02/28/25 21:00 03/02/25 05:09 Phenobarbital Sodium 65 Mg/Ml Vial IV 03/03/25 16:59 65 mg Q6H GABBY Administration Taper Sodium Chloride 10 - 40 ml 02/27/25 02:04 03/02/25 02:46 0.9% Saline Lock 10 Ml Syringe IV 10 ml UD PRN Administration SALINE FLUSH Trazodone HCl 100 mg 02/27/25 02:02 Trazodone 100 Mg Tablet PO QHS PRN PRN INSOMNIA Vancomycin Protocol 1 lab 03/02/25 12:30 Vancomycin Trough/Random Due MC 03/02/25 14:30 DAILY GABBY Lab / Micro Data 03/02/25 01:35 03/02/25 01:35 Labs: Laboratory Results - last 24 hr 02/27/25 03:15: Lyme Total Antibody Negative 03/01/25 04:36: Total Bilirubin 0.47, Direct Bilirubin 0.24, AST 77 H, ALT 48 H,Alkaline Phosphatase 95, Total Protein 6.3, Albumin 3.2 L, Globulin 3.1, Procalcitonin 1.22 H 03/02/25 01:35: WBC 13.9 H, RBC 3.87 L, Hgb 11.3 L, Hct 34.8 L, MCV 89.9, MCH 29.2, MCHC 32.5, RDW Std Deviation 48.7 H, RDW Coeff of Carlos 14.9 H, Plt Count 274, MPV 9.8, Sodium 137, Potassium 4.3, Chloride 106, Carbon Dioxide 18.4 L, Anion Gap 12, BUN 22 H, Creatinine 1.03, Estim Creat Clear Calc 93.47, Est GFR (MDRD) Non-Af 81, BUN/Creatinine Ratio 20.9 H, Glucose 123 H, Calcium 8.4, Vancomycin Trough 21.3 H Micro: Microbiology 02/26/25 20:20 Urine, Clean Catch Urine Culture - Final Mixed Gram Positive Organisms 02/26/25 21:05 Blood Culture (Wb) - Anticubital Left Blood Culture - Preliminary No growth in 48 hours. 02/26/25 20:55 Blood Culture (Wb) - Left Wrist Blood Culture - Preliminary No growth in 48 hours. ABG Data ABG results: ABG 03/01/25 11:06 Specimen Type ART Sample Site R Radial pH 7.40 Bicarbonate Actual 22.8 Total CO2 24 Base Excess -2 O2 Saturation 95 O2 % 45.0 ABG pCO2 36.7 ABG pO2 77 Ryan Test Positive O2 Delivery Device Not entered Vent Mode Not entered Clinical Comments airvo Assessment and Plan . Assessment and plan: Subjective: no acute events o/n. Fevers improved this AM. More alert/calm today,can answer some simple questions now. Still with mild confusion Physical Exam: Gen - NAD, morbidly obese HEENT - MMM. Sclera anicteric Resp - +wheezing. Tachypneic CV - RRR. No m/g/r Abd - Soft, NT, ND Ext - No c/c/e. Skin - No rashes? Neuro - Drowsy but much more arousable compared to earlier. Can answer some simple questions, still with mild confusion I have reviewed the pertinent vital sign, laboratory, and imaging data. ASSESSMENT: # Acute hypoxic respiratory failure # PNA - suspected aspiration # Acute encephalopathy - concern for EtOH withdrawal given heavy EtOH abuse. Last drink 02/25. CT/MR brain without acute infarct. Likely component of metabolic/septic encephalopathy as well # h/o CVA - noted on MR brain. ?chronic gliosis vs demyelination as well # Fever # Asthma/COPD exacerbation # Hyponatremia # Anemia # HTN # Obesity # GERD # h/o tobacco use PLAN: -Cont HHFNC 40%/40L. Wean to keep sats ~90-92% -Cont vanc/cefepime/flagyl/doxy, f/u Cx. ID following. MRSA nares, urine strep/legionella, viral panel neg. May be able to stop vanc if continued improvement/defervescence -Monitor mental status. Cont PRN ativan per CIWA score, PRN precedex. Cont phenobarbital taper but hold for excessive sedation. Ammonia, TSH wnl. UDS neg. LP deferred for now as pt seems to be improving -CTA chest with RLL PNA, no large PE noted. CT A/P without acute pathology -Monitor for worsening R pleural effusion -Budesonide, duonebs, IV solumedrol -TTE w/ LVEF 50%, normal RV. -PRN diuresis to maintain euvolvemia -IV thiamine, MVI -ST eval, aspiration precautions FEN/GI: Swallow eval Proph DVT/GI: Lovenox, protonix Critical Care Time: 50 mins The entirety of this encounter was done via telemedicine using both audio and video. Consent was unable to be obtained for the telemedicine encounter due to the patient's mental status. 03/02/25 0938 <Electronically signed by Gamal Calero MD> Cosigner Signature (if applicable): CC: ~ Signed [facility] Work Phone: [phone]) 523-306508-15-2025 Progress note [facility] Medical Records Department [address] [place] [id number] Progress Note - Supervisor [employer] 03/02/25 0853 MR#: [id number] Acct: [id number] Name: ELIS BILLS Rep #:[id number] : 1960 64 From: Gamal Calero MD PCP: Anna Sanders PA-C Status:ADM IN Location: ICU ICU01-1 Objective Data Objective Data Vital Signs: Vital Signs Last response 3 Temperature 36.5 C L 03/02/25 08:00 Temperature Source Core 03/02/25 08:00 Pulse Rate 70 03/02/25 08:00 Pulse Strength Normal (2+) 03/01/25 10:00 Respiratory Rate 26 H 03/02/25 08:00 Respiratory Effort Normal, Non-Labored 03/02/25 08:00 Respiratory Depth Normal 03/02/25 08:00 Respiratory Pattern Tachypnea 03/02/25 08:00 Blood Pressure 150/89 H 03/02/25 08:00 Blood Pressure Mean 109 03/02/25 08:00 Blood Pressure Source Monitor 03/02/25 08:00 Blood Pressure Position Semi-Fowlers 03/02/25 08:00 Blood Pressure Location Right Forearm 03/02/25 08:00 Pulse Ox 97 03/02/25 08:00 Oxygen Delivery Method Airvo 03/02/25 08:00 Oxygen Flow Rate (L/min) 40 03/02/25 08:00 Fraction of Inspired Oxygen (FIO2) 40 03/02/25 08:00 I&O: I&O Last 24 Hours 3 03/01/25 03/01/25 03/02/25 11:59 23:59 11:59 Intake Total 2832.09 / 3822.09 990 / 3822.09 100 / 100 Output Total 1250 / 2050 800 / 2050 775 / 775 Balance 1582.09 / 1772.09 190 / 1772.09 -675 / -675 I&O: Total Stay 3 02/26/25 20:48 thru 03/02/25 06:09 Intake Total 35803.20 Output Total 4203 Balance 6735.20 Current Meds Ordered / Administered: Current meds ordered / Administered 3 Generic Name Dose Route Start Last Admin Trade Name Freq PRN Reason Stop Dose Admin Acetaminophen 650 mg 02/28/25 11:30 03/01/25 20:27 Acetaminophen 650 Mg Suppository RC 650 mg Q4H PRN PRN Administration FEVER Acetaminophen 650 mg 03/01/25 01:35 03/01/25 05:49 Acetaminophen 325 Mg Tablet PO 650 mg Q4H PRN PRN Administration Pain 1-10 or Fever Albuterol/Ipratropium 3 ml 02/27/25 02:02 02/28/25 03:08 Ipratropium/Albuterol Sulfate 3 Ml Ampul.Neb INHALATION 3 ml Q4H PRN PRN Administration wheezing Albuterol/Ipratropium 3 ml 02/27/25 02:30 03/02/25 07:18 Ipratropium/Albuterol Sulfate 3 Ml Ampul.Neb INHALATION 3 ml Q6HWA.RT GABBY Administration Atorvastatin Calcium 80 mg 02/27/25 22:00 03/01/25 19:37 Atorvastatin Calcium 80 Mg Tablet PO Not Given QHS GABBY Budesonide 0.5 mg 02/28/25 18:15 03/02/25 07:18 Budesonide Respules 0.5 Mg/2 Ml Ampul.Neb. INHALATION 0.5 mg BID.RT GABBY Administration Chlorhexidine Gluconate 1 each 02/28/25 10:00 03/01/25 05:45 Chlorhexidine Gluc 2% Cloth 1 Each Towelette TOPICAL 1 each DAILY GABBY Administration Clopidogrel Bisulfate 75 mg 02/27/25 10:00 03/01/25 10:47 Clopidogrel Bisulfate 75 Mg Tablet PO Not Given DAILY GABBY Dicyclomine HCl 20 mg 02/27/25 02:02 Dicyclomine 10 Mg Capsule PO Q6H PRN PRN abdominal discomfort Enoxaparin Sodium 40 mg 02/27/25 10:00 03/01/25 08:34 Enoxaparin 40 Mg/0.4 Ml Syringe SC 40 mg DAILY GABBY Administration Folic Acid 1 mg 02/27/25 08:00 03/02/25 07:46 Folic Acid 1 Mg Tablet PO Not Given BREAKFAST GABBY Gabapentin 300 mg 02/27/25 02:02 02/27/25 12:15 Gabapentin 300 Mg Capsule PO 300 mg Q8H PRN PRN Administration moderate to severe anxiety Hydroxyzine Pamoate 50 mg 02/27/25 02:02 02/28/25 21:19 Hydroxyzine Jodee 25 Mg Capsule PO 50 mg Q4H PRN PRN Administration mild anxiety Vancomycin IV-PHARMACY TO DOSE 500 mls @ 250 mls/hr 02/27/25 02:02 1 each/ Sodium Chloride IV X1 PRN Rx to Dose Protocol Cefepime HCl 2 gm/ Sodium 100 mls @ 200 mls/hr 02/27/25 10:00 03/01/25 21:13 Chloride IV Infused Q12 GABBY Infusion Sodium Chloride 250 mls @ 15 mls/hr 02/27/25 02:04 IV .[id number] PRN Saline Flush Sodium Chloride 250 mls @ 15 mls/hr 02/27/25 02:04 IV .[id number] PRN Additional IVPB Infusion Metronidazole 500 mg in 100 mls @ 100 mls/hr 02/28/25 02:45 03/02/25 06:09 Flagyl IV Infused Q8 GABBY Infusion Pantoprazole Sodium 40 mg/ 100 mls @ 300 mls/hr 02/28/25 10:00 03/01/25 11:01 Sodium Chloride IV Infused Q24 GABBY Infusion Dexmedetomidine HCl 400 mcg/ 100 mls @ 15.625 mls/hr 02/28/25 10:30 03/02/25 06:13 Sodium Chloride CONT INF Not Given .Q6H24M GABBY Protocol 0.5 MCG/KG/HR Doxycycline Hyclate 100 mg/ 250 mls @ 250 mls/hr 02/28/25 16:00 03/01/25 23:37 Sodium Chloride IV Infused Q12 GABBY Infusion Thiamine HCl 200 mg/ Sodium 52 mls @ 200 mls/hr 02/28/25 16:00 03/01/25 11:01 Chloride IV Infused DAILY GABBY Infusion Loperamide HCl 2 mg 02/27/25 02:02 Loperamide 2 Mg Capsule PO Q4H PRN PRN DIARRHEA/LOOSE STOOLS Lorazepam 1 mg 03/01/25 01:11 03/02/25 02:46 Lorazepam 2 Mg/Ml Syringe IV 1 mg Q4H PRN PRN Administration Alcohol Withdrawal Methylprednisolone Sodium Succinate 40 mg 03/01/25 10:00 03/01/25 21:19 Methylprednisolone Sod Succ 40 Mg/Ml Vial IV 40 mg Q12 GABBY Administration Montelukast Sodium 10 mg 02/27/25 10:00 03/01/25 10:47 Montelukast 10 Mg Tablet PO Not Given DAILY GABBY Multivitamins 1 tablet 03/01/25 12:00 03/01/25 11:01 Multivitamins,Therapeutic Tablet PO Not Given LUNCH GABBY Nicotine 14 mg 02/27/25 02:02 03/01/25 08:35 Nicotine 14 Mg Patch TD 14 mg DAILY GABBY Administration Ondansetron HCl 8 mg 02/27/25 02:02 Ondansetron 8 Mg Tablet PO Q8H PRN PRN NAUSEA Phenobarbital 65 mg 02/28/25 21:00 03/02/25 05:09 Phenobarbital Sodium 65 Mg/Ml Vial IV 03/03/25 16:59 65 mg Q6H GABBY Administration Taper Sodium Chloride 10 - 40 ml 02/27/25 02:04 03/02/25 02:46 0.9% Saline Lock 10 Ml Syringe IV 10 ml UD PRN Administration SALINE FLUSH Trazodone HCl 100 mg 02/27/25 02:02 Trazodone 100 Mg Tablet PO QHS PRN PRN INSOMNIA Vancomycin Protocol 1 lab 03/02/25 12:30 Vancomycin Trough/Random Due MC 03/02/25 14:30 DAILY [facility] Lab / Micro Data 03/02/25 01:35 03/02/25 01:35 Labs: Laboratory Results - last 24 hr 02/27/25 03:15: Lyme Total Antibody Negative 03/01/25 04:36: Total Bilirubin 0.47, Direct Bilirubin 0.24, AST 77 H, ALT 48 H,Alkaline Phosphatase 95, Total Protein 6.3, Albumin 3.2 L, Globulin 3.1, Procalcitonin 1.22 H 03/02/25 01:35: WBC 13.9 H, RBC 3.87 L, Hgb 11.3 L, Hct 34.8 L, MCV 89.9, MCH 29.2, MCHC 32.5, RDW Std Deviation 48.7 H, RDW Coeff of Carlos 14.9 H, Plt Count 274, MPV 9.8, Sodium 137, Potassium 4.3, Chloride 106, Carbon Dioxide 18.4 L, Anion Gap 12, BUN 22 H, Creatinine 1.03, Estim Creat Clear Calc 93.47, Est GFR (MDRD) Non-Af 81, BUN/Creatinine Ratio 20.9 H, Glucose 123 H, Calcium 8.4, Vancomycin Trough 21.3 H Micro: Microbiology 02/26/25 20:20 Urine, Clean Catch Urine Culture - Final Mixed Gram Positive Organisms 02/26/25 21:05 Blood Culture (Wb) - Anticubital Left Blood Culture - Preliminary No growth in 48 hours. 02/26/25 20:55 Blood Culture (Wb) - Left Wrist Blood Culture - Preliminary No growth in 48 hours. ABG Data ABG results: ABG 03/01/25 11:06 Specimen Type ART Sample Site R Radial pH 7.40 Bicarbonate Actual 22.8 Total CO2 24 Base Excess -2 O2 Saturation 95 O2 % 45.0 ABG pCO2 36.7 ABG pO2 77 Ryan Test Positive O2 Delivery Device Not entered Vent Mode Not entered Clinical Comments airvo Assessment and Plan . Assessment and plan: Subjective: no acute events o/n. Fevers improved this AM. More alert/calm today,can answer some simple questions now. Still with mild confusion Physical Exam: Gen - NAD, morbidly obese HEENT - MMM. Sclera anicteric Resp - +wheezing. Tachypneic CV - RRR. No m/g/r Abd - Soft, NT, ND Ext - No c/c/e. Skin - No rashes? Neuro - Drowsy but much more arousable compared to earlier. Can answer some simple questions, stillwith mild confusion I have reviewed the pertinent vital sign, laboratory, and imaging data. ASSESSMENT: # Acute hypoxic respiratory failure # PNA - suspected aspiration # Acute encephalopathy - concern for EtOH withdrawal given heavy EtOH abuse. Last drink 02/25. CT/MRbrain without acute infarct. Likely component of metabolic/septic encephalopathy as well # h/o CVA - noted on MR brain. ?chronic gliosis vs demyelination as well # Fever # Asthma/COPD exacerbation # Hyponatremia # Anemia # HTN # Obesity # GERD # h/o tobacco use PLAN: -Cont HHFNC 40%/40L. Wean to keep sats ~90-92% -Cont vanc/cefepime/flagyl/doxy, f/u Cx. ID following. MRSA nares, urine strep/legionella, viral panel neg. May be able to stop vanc if continued improvement/defervescence -Monitor mental status. Cont PRN ativan per CIWA score, PRN precedex. Cont phenobarbital taper but hold for excessive sedation. Ammonia, TSH wnl. UDS neg. LP deferred for now as pt seems to be improving -CTA chest with RLL PNA, no large PE noted. CT A/P without acute pathology -Monitor for worsening R pleural effusion -Budesonide, duonebs, IV solumedrol -TTE w/ LVEF 50%, normal RV. -PRN diuresis to maintain euvolvemia -IV thiamine, MVI -ST eval, aspiration precautions FEN/GI: Swallow eval Proph DVT/GI: Lovenox, protonix Critical Care Time: 50 mins The entirety of this encounter was done via telemedicine using both audio and video. Consent was unable to be obtained for the telemedicine encounter due to the patient's mental status. 03/02/25 0938 Cosigner Signature (if applicable): CC: ~ Signed [facility]08-15-2025 Consult note Author Moo Baird [facility] Note Date/Time March 02, 2025 2: 22am [facility] Medical Records Department [address] [place] [address] Pharmacokinetic/Renal -Consult 03/02/250 MR#: [id number] Acct: [id number] Name: ELIS BILLS Rep #:[id number] : 1960 64 From: Moo Baird PCP: Anna Sanders PA-C Status:ADM IN Y Location: ICU ICU01-1 Consult Antibiotic Management Pharmacy has been consulted to manage selected antibiotic: Vancomycin Type of Intervention Type of Consult: Follow-up Labs Labs: Sodium 137 mmol/L (133-145) 03/02/25 01:35 Potassium 4.3 mmol/L (3.3-5.1) 03/02/25 01:35 Chloride 106 mmol/L (98-108) 03/02/25 01:35 Carbon Dioxide 18.4 mmol/L (21.0-32.0) L 03/02/25 01:35 Anion Gap 12 (5-15) 03/02/25 01:35 BUN 22 mg/dL (4-19) H 03/02/25 01:35 Creatinine 1.03 mg/dL (0.70-1.20) 03/02/25 01:35 Est GFR (MDRD) Non-Af 81 (>60) 03/02/25 01:35 BUN/Creatinine Ratio 20.9 RATIO (10-20) H 03/02/25 01:35 Glucose 123 mg/dL (70-99) H 03/02/25 01:35 Vancomycin Trough 21.3 ug/mL (5.0-15.0) H 03/02/25 01:35 Microbiology Microbiology: Microbiology 02/26/25 20:20 Urine, Clean Catch Urine Culture - Final Mixed Gram Positive Organisms 02/26/25 21:05 Blood Culture (Wb) - Anticubital Left Blood Culture - Preliminary No growth in 48 hours. 02/26/25 20:55 Blood Culture (Wb) - Left Wrist Blood Culture - Preliminary No growth in 48 hours. 02/28/25 20:15 Mucosa - Nasopharyngeal Coronavirus COVID-19 PCR - Final 02/28/25 18:20 Nasal Secretion MRSA (PCR) - Final 02/28/25 15:15 Urine Catheter - Schreiber Legionella Antigen - Final 02/28/25 15:15 Urine Catheter - Schreiber Streptococcus pneumoniae Antigen (M - Final 02/27/25 03:45 Mucosa - Nasopharyngeal Respiratory Panel (PCR) - Final Dosing Weight Weight used for dosin kg Estimated Creatinine Clearance Estimated Creatinine Clearance: 93 Goal Trough Goal Trough: 15-20 mcg/mL Pharmacy Plan for Drug Dosing Pharmacy Plan for Drug Dosing: Vancomycin trough level of 21.3, drawn 11hrs post-dose, was above the target range of 15-20. Will suspend current dosing and will draw a random vanco level in twelve hours to determine further orders. Pharmacy Service will continue to monitor and adjust dosing as required. Follow-Up Labs Follow-Up Labs: Trough: Vancomycin (random) Date/Time Labs Ordered Labs to be done on [date and time ordered]: 03/02/25 @1330 (random) 03/02/25221 <Electronically signed by Moo funes> Date _ Moo Baird [facility] Signature (if applicable): Date CC: ~ Signed [facility] Work Phone: 1(887) [phone] Consult note [facility] Medical Records Department [address] [place] [address] Pharmacokinetic/Renal -Consult 03/02/25219 MR#: [id number] Acct: [id number] Name: ELIS BILLS Rep #:[id number] : 1960 64 From: Moo Baird PCP: Anna Sanders PA-C Status:ADM IN Y Location: ICU ICU01-1 Consult Antibiotic Management Pharmacy has been consulted to manage selected antibiotic: Vancomycin Type of Intervention Type of Consult: Follow-up Labs Labs: Sodium 137 mmol/L (133-145) 03/02/25 01:35 Potassium 4.3 mmol/L (3.3-5.1) 03/02/25 01:35 Chloride 106 mmol/L (98-108) 03/02/25 01:35 Carbon Dioxide 18.4 mmol/L (21.0-32.0) L 03/02/25 01:35 Anion Gap 12 (5-15) 03/02/25 01:35 BUN 22 mg/dL (4-19) H 03/02/25 01:35 Creatinine 1.03 mg/dL (0.70-1.20) 03/02/25 01:35 Est GFR (MDRD) Non-Af 81 (>60) 03/02/25 01:35 BUN/Creatinine Ratio 20.9 RATIO (10-20) H 03/02/25 01:35 Glucose 123 mg/dL (70-99) H 03/02/25 01:35 Vancomycin Trough 21.3 ug/mL (5.0-15.0) H 03/02/25 01:35 Microbiology Microbiology: Microbiology 02/26/25 20:20 Urine, Clean Catch Urine Culture - Final Mixed Gram Positive Organisms 02/26/25 21:05 Blood Culture (Wb) - Anticubital Left Blood Culture - Preliminary No growth in 48 hours. 02/26/25 20:55 Blood Culture (Wb) - Left Wrist Blood Culture - Preliminary No growth in 48 hours. 02/28/25 20:15 Mucosa - Nasopharyngeal Coronavirus COVID-19 PCR - Final 02/28/25 18:20 Nasal Secretion MRSA (PCR) - Final 02/28/25 15:15 Urine Catheter - Schreiber Legionella Antigen - Final 02/28/25 15:15 Urine Catheter - Schreiber Streptococcus pneumoniae Antigen (M - Final 02/27/25 03:45 Mucosa - Nasopharyngeal Respiratory Panel (PCR) - Final Dosing Weight Weight used for dosin kg Estimated Creatinine Clearance Estimated Creatinine Clearance: 93 Goal Trough Goal Trough: 15-20 mcg/mL Pharmacy Plan for Drug Dosing Pharmacy Plan for Drug Dosing: Vancomycin trough level of 21.3, drawn 11hrs post-dose, was above the target range of 15-20. Will suspend current dosing and will draw a random vanco level in twelve hours to determine further orders. Pharmacy Service will continue to monitor and adjust dosing as required. Follow-Up Labs Follow-Up Labs: Trough: Vancomycin (random) Date/Time Labs Ordered Labs to be done on [date and time ordered]: 03/02/25 @1330 (random) 03/02/25 0222 ds> Date _ Moo Enrique Youngblood Signature (if applicable): Date CC: ~ Signed [facility]08-14-2025 Progress note Author Armani Tolbert [facility] Note Date/Time March 01, 2025 2: [address] [place] [address] System Medical Records Department [address] [place] [address] Progress Note - Hospitalist 03/01/25 1152 MR#: [id number] Acct: [id number] Name: ELIS BILLS Rep #:[id number] : 1960 64 From: Armani ordoñez DO PCP: Anna Sanders PA-C Status:ADM IN Location: ICU ICU01-1 Reason for Visit Chief Complaint: AMS. Subjective Subjective Saw patient at bedside this morning. Patient opened his eyes on command but wasquite somnolent and did not answer any questions for me. Objective Data Objective Data Vital Signs: Vital Signs Temp Pulse Resp BP Pulse Ox O2 Del Method O2 Flow Rate 102.2 F H 89 34 H 124/93 H 92 Airvo 40 03/01/25 11:00 03/01/25 11:00 03/01/25 11:00 03/01/25 11:00 03/01/25 11:00 03/01/25 11:00 03/01/25 11:00 FiO2 45 03/01/25 11:00 Oxygen Flow Rate (L/min) 40 Oxygen Delivery Method Airvo Weight: 125 kg Body Mass Index (BMI) 40.8 Intake & Output: Intake and Output for Last 24 Hours 02/27/25 02/28/25 03/01/25 23:59 23:59 23:59 Intake Total 3850 / 3850 2166.11 / 2173.04 2832.09 / 2832.09 Output Total 1375 / 1375 400 / 400 Balance 3847 / 3847 791.11 / 798.04 2432.09 / 2432.09 Lab / Micro Data 03/01/25 04:36 03/01/25 04:36 Labs: Laboratory Results - last 24 hr 02/28/25 11:15: Vancomycin Trough 14.7 02/28/25 15:00: Ammonia 19.7, Lipase 22 02/28/25 16:25: D-Dimer Quant (PE/DVT) 2.78 H* 03/01/25 04:36: WBC 13.0 H, RBC 4.14 L, Hgb 11.9 L, Hct 37.8 L, MCV 91.3 D, MCH28.7, MCHC 31.5 L D, RDW Std Deviation 49.4 H, RDW Coeff of Carlos 14.6, Plt Count TNP, MPV 10.7, Immature Gran % (Auto) 0.800, Neut % (Auto) 82.5 H, Lymph % (Auto) 8.4 L, Emanuel % (Auto) 7.3, Eos % (Auto) 0.2, Baso % (Auto) 0.8, Absolute Neuts (auto) 10.7 H, Absolute Lymphs (auto) 1.09, Nucleated RBC % 0, Differential Comment SCANNED, Platelet Estimate ADEQUATE, Sodium 134, Potassium 4.3, Chloride 103, Carbon Dioxide 20.5 L, Anion Gap 11, BUN 18, Creatinine 1.09,Estim Creat Clear Calc 87.71, Est GFR (MDRD) Non-Af 75, BUN/Creatinine Ratio 16.7, Glucose 109 H, Calcium 7.6, Total Bilirubin 0.47, Direct Bilirubin 0.24, AST 77 H, ALT 48 H, Alkaline Phosphatase 95, NT pro BNP II 2914 H, Total Protein 6.3, Albumin 3.2 L, Globulin 3.1, Procalcitonin 1.22 H Micro: Microbiology 02/26/25 20:20 Urine, Clean Catch Urine Culture - Final Mixed Gram Positive Organisms 02/26/25 21:05 Blood Culture (Wb) - Anticubital Left Blood Culture - Preliminary No growth in 48 hours. 02/26/25 20:55 Blood Culture (Wb) - Left Wrist Blood Culture - Preliminary No growth in 48 hours. 02/28/25 20:15 Mucosa - Nasopharyngeal Coronavirus COVID-19 PCR - Final 02/28/25 18:20 Nasal Secretion MRSA (PCR) - Final 02/28/25 15:15 Urine Catheter - Schreiber Legionella Antigen - Final 02/28/25 15:15 Urine Catheter - Schreiber Streptococcus pneumoniae Antigen (M - Final 02/27/25 03:45 Mucosa - Nasopharyngeal Respiratory Panel (PCR) - Final ABG Data ABG results: ABG 03/01/25 11:06 Specimen Type ART Sample Site R Radial pH 7.40 Bicarbonate Actual 22.8 Total CO2 24 Base Excess -2 O2 Saturation 95 O2 % 45.0 ABG pCO2 36.7 ABG pO2 77 Ryan Test Positive O2 Delivery Device Not entered Vent Mode Not entered Clinical Comments airvo Radiography Diagnostic Testing: Radiology Impression Echocardiogram 02/28/25 14:46 Interpretation Summary Normal LV size. Mild concentric left ventricular hypertrophy. The estimated ejection fraction is 50 %. Normal diastology for age. Normal RV size. Normal systolic function. Unable to estimate RV systolic pressure due to insufficient tricuspid regurgitant envelope. Ordering Physician: Gamal Calero Performed By: Mukesh Mejias RCS Chest CTA 02/28/25 18:28 IMPRESSION: 1. Right lower lobar pneumonia, substantially increased from prior exam. 2. Associated small right parapneumonic pleural effusion. 3. Presumed reactive right hilar and mediastinal lymphadenopathy. 4. No central pulmonary arterial emboli. Segmental-subsegmental branches are not adequately evaluated on this exam due to significant respiratory motion artifact. Reading Location: [id number] Chest X-Ray 03/01/25 04:10 IMPRESSION: Suspect interval worsening in right mid and lower lung zone airspace disease. Reading Location: [place] [address] Physical Exam Const alert and no apparent distress Constitutional Narrative: Elderly male, class III obesity, somnolent appearing but does awake and make appropriate eye contact to voice, increased work of breathing noted on nasal cannula, otherwise laying back comfortably. General Appearance: cooperative and comfortable Orientation / Consciousness: lethargic HEENT normocephalic, head/scalp atraumatic, hearing grossly normal bilaterally, nasal mucous membranes and turbinates normal and moist oral mucous membranes Eyes PERRL, EOMs intact bilaterally and conjunctivae normal Neck full ROM Chest inspection of chest normal Resp Resp Narrative: Increased work of breathing with use of accessory abdominal muscles noted. Crackles noted in bilateral lower lungs, worse on right. No wheezing noted. Cardio regular rate, regular rhythm, no murmurs and peripheral pulses 2+ throughout GI normal to inspection, nondistended, normoactive bowel sounds, soft to palpation,non-tender and non-distended Back/Spine normal ROM Extremity Extremity Narrative: Trace lower extremity edema noted. Skin no rashes or lesions noted Assessment & Plan Assessment/Plan (1) Acute hypoxic respiratory failure: (2) Aspiration pneumonia: QUALIFIERS: Aspiration pneumonia type: unspecified Laterality: right Lung location: lower lobe of lung Qualified Code(s): J69.0 - Pneumonitis due to inhalation of food and vomit (3) Acute metabolic encephalopathy: PLAN: Plan Patient is a 64-year-old male who presented to [facility] ED on 02/26/2025 with altered mentation. 1. Acute hypoxic respiratory failure due to aspiration pneumonia versus pneumonitis and mild HFpEF exacerbation ? 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 Not on home oxygen. Present with cough, feversto 103F and leukocytosis. CT chest showed right lower lobe consolidative airspace disease concerning for aspiration pneumonia. Had witnessed aspiration event on manager filter of hospital day 2 requiring transfer to the ICU. CTA chest on 02/28 showed no PE, did show substantially worse right lower lobe pneumonia with reactive lymphadenopathy. BNP 1400 on 02/28 concerning for new onset heart failure. Echo showed EF 50%, mild concentric LV hypertrophy, no other concerning findings. BNP worsened to 2900 on 03/01 despite good diuresis on IV Lasix; suspect this is secondary to elevated pulmonary pressures in setting of severe aspiration pneumonia/pneumonitis. Currently requiring Airvo at 45% and 40 L to maintain appropriate oxygen saturations. Has continued to fever despite broad-spectrum antibiotics. Per ID, suspect fevers are multifactorial from pneumonia as well as alcohol withdrawal as below. Infectious workup negative to this point. Continue broad-spectrum antibiotics with IV vancomycin, cefepime, doxycycline and Flagyl. Holding on further diuresis for now, can consider spot diuresis as needed. Continue scheduled DuoNebs. Wean supplemental oxygen as able. Appreciate specialist recommendations. 2. Acute alcohol withdrawal with concern for DTs ? Reportedly drinks 8-9 beers daily. Alcohol level negative on admit. Per family, has gone through withdrawal at home in the past but has never been hospitalized for this. Notably was confused on admission but became significantly more confused and agitated shortly after arriving to the ICU on hospital day 2. Initiated on phenobarbital taper with some improvement in symptoms but not resolution of symptoms. Currently maintained on Precedex drip with improvement in agitation. Weaning Precedex drip as able. Continue phenobarbital taper and other as needed medications per alcohol withdrawal orderset. 3. Acute encephalopathy ? [employer] following as above. Suspect multifactorial due to both respiratory failure due to pneumonia as above as well as alcohol withdrawal. Treatment as above. 4. Hyponatremia, improving ? Sodium 126 on admit. Suspect due to both beer potomania and volume overload. Improved with IV diuresis, most recent sodium 134 on 03/01. Continue to monitor sodium level daily. Chronic medical conditions: ? Class II obesity: BMI 39 on admit. Complicates hospital course and care. ? Nicotine dependence: Nicotine patch in place. Cessation advised. ? Hypertension/hyperlipidemia: Holding home lisinopril given infection as above. Continue home statin. ? GERD: Continue home PPI. ? History of CVA: Continue home Plavix. ? Asthma/COPD: Not in acute exacerbation. Continue home inhalers as well as scheduled DuoNebs as above. DVT prophylaxis: Lovenox CODE STATUS: Full code, verified Expected disposition: TBD Total clinical time spent by myself addressing the patient's medical issues, reviewing all the data, and collaborating with patient's care team: 35 minutes. Charges/Coding Visit Charges Inpatient E&M: 98805 Subs Hosp L2 03/01/25 1431 <Electronically signed by Armani Tolbert DO> Cosigner Signature (if applicable): CC: ~ Signed [facility] Work Phone: 1(122) 903-527508-14-2025 Progress note [facility] Medical Records Department [address] [place] [address] Progress Note - Hospitalist 03/01/25 1152 MR#: [id number] Acct: [id number] Name: ELIS BILLS Rep #:[id number] : 1960 64 From: Armani Bartlett smita DO PCP: Anna Sanders PA-C Status:ADM IN Location: ICU ICU01-1 Reason for Visit Chief Complaint: AMS. Subjective Subjective Saw patient at bedside this morning. Patient opened his eyes on command but wasquite somnolent and did not answer any questions for me. Objective Data Objective Data Vital Signs: Vital Signs Temp Pulse Resp BP Pulse Ox O2 Del Method O2 Flow Rate 102.2 F H 89 34 H 124/93 H 92 Airvo 40 03/01/25 11:00 03/01/25 11:00 03/01/25 11:00 03/01/25 11:00 03/01/25 11:00 03/01/25 11:00 03/01/25 11:00 FiO2 45 03/01/25 11:00 Oxygen Flow Rate (L/min) 40 Oxygen Delivery Method Airvo Weight: 125 kg Body Mass Index (BMI) 40.8 Intake & Output: Intake and Output for Last 24 Hours 02/27/25 02/28/25 03/01/25 23:59 23:59 23:59 Intake Total 3850 / 3850 2166.11 / 2173.04 2832.09 / 2832.09 Output Total 3 / 3 1375 / 1375 400 / 400 Balance 3847 / 3847 791.11 / 798.04 2432.09 / 2432.09 Lab / Micro Data 03/01/25 04:36 03/01/25 04:36 Labs: Laboratory Results - last 24 hr 02/28/25 11:15: Vancomycin Trough 14.7 02/28/25 15:00: Ammonia 19.7, Lipase 22 02/28/25 16:25: D-Dimer Quant (PE/DVT) 2.78 H* 03/01/25 04:36: WBC 13.0 H, RBC 4.14 L, Hgb 11.9 L, Hct 37.8 L, MCV 91.3 D, MCH28.7, MCHC 31.5 L D,RDW Std Deviation 49.4 H, RDW Coeff of Carlos 14.6, Plt Count TNP, MPV 10.7, Immature Gran % (Auto) 0.800, Neut % (Auto) 82.5 H, Lymph % (Auto) 8.4 L, Emanuel % (Auto) 7.3, Eos % (Auto) 0.2, Baso % (Auto) 0.8, Absolute Neuts (auto) 10.7 H, Absolute Lymphs (auto) 1.09, Nucleated RBC % 0, Differential Comment SCANNED, Platelet Estimate ADEQUATE, Sodium 134, Potassium 4.3, Chloride 103, Carbon Dioxide 20.5 L, Anion Gap 11, BUN 18, Creatinine 1.09,Estim Creat Clear Calc 87.71, Est GFR (MDRD) Non-Af 75, BUN/Creatinine Ratio 16.7, Glucose 109 H, Calcium 7.6, Total Bilirubin 0.47, Direct Bilirubin 0.24, AST 77 H, ALT 48 H, Alkaline Phosphatase 95, NT pro BNP II 2914 H, Total Protein 6.3, Albumin 3.2 L, Globulin 3.1, Procalcitonin 1.22 H Micro: Microbiology 02/26/25 20:20 Urine, Clean Catch Urine Culture - Final Mixed Gram Positive Organisms 02/26/25 21:05 Blood Culture (Wb) - Anticubital Left Blood Culture - Preliminary No growth in 48 hours. 02/26/25 20:55 Blood Culture (Wb) - Left Wrist Blood Culture - Preliminary No growth in 48 hours. 02/28/25 20:15 Mucosa - Nasopharyngeal Coronavirus COVID-19 PCR - Final 02/28/25 18:20 Nasal Secretion MRSA (PCR) - Final 02/28/25 15:15 Urine Catheter - Schreiber Legionella Antigen - Final 02/28/25 15:15 Urine Catheter - Schreiber Streptococcus pneumoniae Antigen (M - Final 02/27/25 03:45 Mucosa - Nasopharyngeal Respiratory Panel (PCR) - Final ABG Data ABG results: ABG 03/01/25 11:06 Specimen Type ART Sample Site R Radial pH 7.40 Bicarbonate Actual 22.8 Total CO2 24 Base Excess -2 O2 Saturation 95 O2 % 45.0 ABG pCO2 36.7 ABG pO2 77 Ryan Test Positive O2 Delivery Device Not entered Vent Mode Not entered Clinical Comments airvo Radiography Diagnostic Testing: Radiology Impression Echocardiogram 02/28/25 14:46 Interpretation Summary Normal LV size. Mild concentric left ventricular hypertrophy. The estimated ejection fraction is 50 %. Normal diastology for age. Normal RV size. Normal systolic function. Unable to estimate RV systolic pressure due to insufficient tricuspid regurgitant envelope. Ordering Physician: Gamal Calero Performed By: Mukesh Mejias, FRANCISCO J Chest CTA 02/28/25 18:28 IMPRESSION: 1. Right lower lobar pneumonia, substantially increased from prior exam. 2. Associated small right parapneumonic pleural effusion. 3. Presumed reactive right hilar and mediastinal lymphadenopathy. 4. No central pulmonary arterial emboli. Segmental-subsegmental branches are not adequately evaluated on this exam due to significant respiratory motion artifact. Reading Location: [facility] Chest X-Ray 03/01/25 04:10 IMPRESSION: Suspect interval worsening in right mid and lower lung zone airspace disease. Reading Location: [place] [address] Physical Exam Const alert and no apparent distress Constitutional Narrative: Elderly male, class III obesity, somnolent appearing but does awake and make appropriate eye contact to voice, increased work of breathing noted on nasal cannula, otherwise laying back comfortably. General Appearance: cooperative and comfortable Orientation / Consciousness: lethargic HEENT normocephalic, head/scalp atraumatic, hearing grossly normal bilaterally, nasal mucous membranes and turbinates normal and moist oral mucous membranes Eyes PERRL, EOMs intact bilaterally and conjunctivae normal Neck full ROM Chest inspection of chest normal Resp Resp Narrative: Increased work of breathing with use of accessory abdominal muscles noted. Crackles noted in bilateral lower lungs, worse on right. No wheezing noted. Cardio regular rate, regular rhythm, no murmurs and peripheral pulses 2+ throughout GI normal to inspection, nondistended, normoactive bowel sounds, soft to palpation,non-tender and non-distended Back/Spine normal ROM Extremity Extremity Narrative: Trace lower extremity edema noted. Skin no rashes or lesions noted Assessment & Plan Assessment/Plan (1) Acute hypoxic respiratory failure: (2) Aspiration pneumonia: QUALIFIERS: Aspiration pneumonia type: unspecified Laterality: right Lung location: lower lobe of lung Qualified Code(s): J69.0 - Pneumonitis due to inhalation of food and vomit (3) Acute metabolic encephalopathy: PLAN: Plan Patient is a 64-year-old male who presented to [facility] ED on 02/26/2025 with altered mentation. 1. Acute hypoxic respiratory failure due to aspiration pneumonia versus pneumonitis and mild HFpEF exacerbation ? 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 Not on home oxygen. Present with cough, feversto 103F and leukocytosis. CT chest showed right lower lobe consolidative airspace disease concerning for aspiration pneumonia. Had witnessed aspiration event on manager filter of hospital day 2 requiring transfer to the ICU. CTA chest on 02/28 showed no PE, did show substantially worse right lower lobe pneumonia with react christelle lymphadenopathy. BNP 1400 on 02/28 concerning for new onset heart failure. Echo showed EF 50%, mild concentric LV hypertrophy, no other concerning findings. BNP worsened to 2900 on 03/01 despite good diuresis on IV Lasix; suspect this is secondary to elevated pulmonary pressures in setting of severe aspiration pneumonia/pneumonitis. Currently requiring Airvo at 45% and 40 L to maintain appropriate oxygen saturations. Has continued to fever despite broad- spectrum antibiotics. Per ID, suspect fevers are multifactorial from pneumonia as well as alcohol withdrawal as below. Infectious workup negative to this point. Continue broad-spectrum antibiotics with IV vancomycin, cefepime, doxycycline and Flagyl. Holding on further diuresis for now, can consider spot diuresis as needed. Continue scheduled DuoNebs. Wean supplemental oxygen as able. Appreciate specialist recommendations. 2. Acute alcohol withdrawal with concern for DTs ? Reportedly drinks 8-9 beers daily. Alcohol level negative on admit. Per family, has gone through withdrawal at home in the past but has never been hospitalized for this. Notably was confused on admission but became significantly more confused and agitated shortly after arriving to the ICU on hospital day 2. Initiated on phenobarbital taper with some improvement in symptoms but not resolution ofsymptoms. Currently maintained on Precedex drip with improvement in agitation. Weaning Precedex drip as able. Continue phenobarbital taper and other as needed medications per alcohol withdrawal orderset. 3. Acute encephalopathy ? [employer] following as above. Suspect multifactorial due to both respiratory failure due to pneumonia as above as well as alcohol withdrawal. Treatment as above. 4. Hyponatremia, improving ? Sodium 126 on admit. Suspect due to both beer potomania and volume overload. Improved with IV diuresis, most recent sodium 134 on 03/01. Continue to monitor sodium level daily. Chronic medical conditions: ? Class II obesity: BMI 39 on admit. Complicates hospital course and care. ? Nicotine dependence: Nicotine patch in place. Cessation advised. ? Hypertension/hyperlipidemia: Holding home lisinopril given infection as above. Continue home statin. ? GERD: Continue home PPI. ? History of CVA: Continue home Plavix. ? Asthma/COPD: Not in acute exacerbation. Continue home inhalers as well as scheduled DuoNebs as above. DVT prophylaxis: Lovenox CODE STATUS: Full code, verified Expected disposition: TBD Total clinical time spent by myself addressing the patient's medical issues, reviewing all the data, and collaborating with patient's care team: 35 minutes. Charges/Coding Visit Charges Inpatient E&M: 22469 Subs Hosp L2 03/01/25 1431 Cosigner Signature (if applicable): CC: ~ Signed [facility]08-14-2025 Consult note Author Pilar Gannon [facility] Note Date/Time March 01, 2025 10 :49am [facility] Medical Records Department [address] [place] [address] Consultation - Infectious Dx 03/01/25 1045 MR#: [id number] Acct: [id number] Name: ELIS BILLS Rep #:[id number] : 1960 64 From: Pilar villavicencio MD PCP: Anna Sanders PA-C Status:ADM IN Location: ICU ICU01-1 Assessment & Plan Assessment/Plan (1) Sepsis: QUALIFIERS: Sepsis type: sepsis due to unspecified organism Sepsis acute organ dysfunction status: with acute organ dysfunction Severe sepsis acute organ dysfunction type: encephalopathy Severe sepsis shock status:without septic shock Qualified Code(s): A41.9 - Sepsis, unspecified organism; R65.20 - Severe sepsis without septic shock; G93.41 - Metabolic encephalopathy PLAN: Still high fever, infectious workup neg so far besides for presumed aspiration pneumonia. Lyme pending. Etoh withdrawal could be playing a part inhis temps. Cont broad coverage for now with vanc, cefepime, doxy, flagyl. Low suspicion for meningitis at this time if he is able to wake and interact withouthead/neck pain when sedation is weaned. Will follow, thank you, d/w nursing (2) Aspiration pneumonia: QUALIFIERS: Aspiration pneumonia type: unspecified Laterality: right Lung location: lower lobe of lung Qualified Code(s): J69.0 - Pneumonitis due to inhalation of food and vomit (3) Acute metabolic encephalopathy: HPI Consult Data Date of Consult: 03/01/25 HPI Narrative Reason for Consultation: fever HPI Narrative: ELIS BILLS, is a 64 M with h/o etoh abuse, obesity, COPD presented to [facility] 02/25 with 2 days confusion, fall at home. Had some pain in knee per 's report in ED. Admitted to icu, now on vanc/cefepime/flagyl/doxy and iv steroids. Still with high fevers. Per nursing, when precedex is weaned, he is awake, talking, interactive, able to move head/neck. Full ROS limited due to to mental status. [facility] Medical History Hyperlipemia Hypertension GERD (gastroesophageal reflux disease) Home Medications ?Medication ?Instructions ?Recorded ?Last Taken ?Type atorvastatin 80 mg tablet 80 mg PO DAILY 03/22/2211/07 History clopidogrel 75 mg tablet 75 mg PO DAILY 03/22/2211/07 History lisinopril 2.5 mg tablet 2.5 mg PO DAILY 03/22/2211/07 History esomeprazole magnesium 40 mg 40 mg PO DAILY 02/26/25 U nknown History capsule,delayed release folic acid 1 mg tablet 1 mg PO DAILY 02/26/25 Unkno wn History ipratropium 0.5 mg-albuterol 3 mg 3 ml continuous nebu lization Q4H 02/26/25 Unknown History (2.5 mg base)/3 mL nebulization PRN PRN wheezing soln montelukast 10 mg tablet 10 mg PO DAILY 02/26/25 Unkn own History thiamine HCl (vitamin B1) 100 mg 100 mg PO DAILY 02/26 Unknown History tablet umeclidinium 62.5 mcg-vilanterol 1 ea inhalation DAILY 02/26/25 Unknown History 25 mcg/actuation powdr for inhalation (Anoro Ellipta) Allergy/AdvReac Type Severity Reaction Status Date / Time Penicillins (PCN) Allergy Unknown - Verified 02/28/25 10:02 WAS A BABY Social History Smoking Status: Current every day smoker tobacco type: cigarettes Physical Exam Const no apparent distress General Appearance: lethargic HEENT normocephalic and head/scalp atraumatic Eyes PERRL and EOMs intact bilaterally Neck supple and No nodes Resp Auscultation: rhonchi and diminished lung sounds Cardio regular rate and regular rhythm GI soft to palpation, non-tender and non-distended Extremity General Extremity: edema Skin no rashes or lesions noted Neuro CN's II-XII intact bilaterally Lab / Micro Data Attestation: I reviewed the patient's lab results. 03/01/25 04:36 03/01/25 04:36 Labs: Laboratory Results - last 24 hr 02/28/25 11:15: Vancomycin Trough 14.7 02/28/25 15:00: Ammonia 19.7, Lipase 22 02/28/25 16:25: D-Dimer Quant (PE/DVT) 2.78 H* 03/01/25 04:36: WBC 13.0 H, RBC 4.14 L, Hgb 11.9 L, Hct 37.8 L, MCV 91.3 D, MCH28.7, MCHC 31.5 L D, RDW Std Deviation 49.4 H, RDW Coeff of Carlos 14.6, Plt Count TNP, MPV 10.7, Immature Gran % (Auto) 0.800, Neut % (Auto) 82.5 H, Lymph % (Auto) 8.4 L, Emanuel % (Auto) 7.3, Eos % (Auto) 0.2, Baso % (Auto) 0.8, Absolute Neuts (auto) 10.7 H, Absolute Lymphs (auto) 1.09, Nucleated RBC % 0, Differential Comment SCANNED, Platelet Estimate ADEQUATE, Sodium 134, Potassium 4.3, Chloride 103, Carbon Dioxide 20.5 L, Anion Gap 11, BUN 18, Creatinine 1.09,Estim Creat Clear Calc 87.71, Est GFR (MDRD) Non-Af 75, BUN/Creatinine Ratio 16.7, Glucose 109 H, Calcium 7.6, Total Bilirubin 0.47, Direct Bilirubin 0.24, AST 77 H, ALT 48 H, Alkaline Phosphatase 95, NT pro BNP II 2914 H, Total Protein 6.3, Albumin 3.2 L, Globulin 3.1 Micro: Microbiology 02/26/25 20:20 Urine, Clean Catch Urine Culture - Final Mixed Gram Positive Organisms 02/26/25 21:05 Blood Culture (Wb) - Anticubital Left Blood Culture - Preliminary No growth in 48 hours. 02/26/25 20:55 Blood Culture (Wb) - Left Wrist Blood Culture - Preliminary No growth in 48 hours. 02/28/25 20:15 Mucosa - Nasopharyngeal Coronavirus COVID-19 PCR - Final 02/28/25 18:20 Nasal Secretion MRSA (PCR) - Final 02/28/25 15:15 Urine Catheter - Schreiber Legionella Antigen - Final 02/28/25 15:15 Urine Catheter - Schreiber Streptococcus pneumoniae Antigen (M - Final Imaging Radiology Impression Echocardiogram 02/28/25 14:46 Interpretation Summary Normal LV size. Mild concentric left ventricular hypertrophy. The estimated ejection fraction is 50 %. Normal diastology for age. Normal RV size. Normal systolic function. Unable to estimate RV systolic pressure due to insufficient tricuspid regurgitant envelope. Ordering Physician: Gamal Calero Performed By: Mukesh Mejias RCS Chest CTA 02/28/25 18:28 IMPRESSION: 1. Right lower lobar pneumonia, substantially increased from prior exam. 2. Associated small right parapneumonic pleural effusion. 3. Presumed reactive right hilar and mediastinal lymphadenopathy. 4. No central pulmonary arterial emboli. Segmental-subsegmental branches are not adequately evaluated on this exam due to significant respiratory motion artifact. Reading Location: [id number] Chest X-Ray 03/01/25 04:10 IMPRESSION: Suspect interval worsening in right mid and lower lung zone airspace disease. [facility] 03/01/25 1049 <Electronically signed by Pilar Gannon MD> Cosigner Signature (if applicable): CC: STEVE Sanders~ Signed [facility] Work Phone: 1(346) 712-204108-14-2025 Progress note Author Gamal Calero [facility] Note Date/Time March 01, 2025 9: 53am [facility] Medical Records Department [facility] [place] [address] Progress Note - [employer] 03/01/25 0903 MR#: [id number] Acct: [id number] Name: ELIS BILLS Rep #:[id number] : 1960 64 From: Gamal Calero MD PCP: Anna Sanders PA-C Status:ADM IN Location: ICU ICU01-1 Objective Data Objective Data Vital Signs: Vital Signs Last response 3 Temperature 39.7 C H 03/01/25 07:00 Temperature Source Core 03/01/25 07:00 Pulse Rate 95 03/01/25 07:00 Pulse Strength Normal (2+) 02/28/25 10:00 Respiratory Rate 35 H 03/01/25 07:00 Respiratory Effort Short of Breath 03/01/25 04:00 Respiratory Depth Shallow 03/01/25 04:00 Respiratory Pattern Tachypnea 03/01/25 06:47 Blood Pressure 114/66 03/01/25 07:00 Blood Pressure Mean 82 03/01/25 07:00 Blood Pressure Source Monitor 03/01/25 07:00 Blood Pressure Position Semi-Fowlers 03/01/25 07:00 Blood Pressure Location Left Arm 03/01/25 07:00 Pulse Ox 95 03/01/25 07:00 Oxygen Delivery Method Nasal Cannula 03/01/25 07:00 Oxygen Flow Rate (L/min) 3 03/01/25 07:00 Fraction of Inspired Oxygen (FIO2) 5 02/28/25 17:00 I&O: I&O Last 24 Hours 3 02/28/25 02/28/25 03/01/25 11:59 23:59 11:59 Intake Total 748.87 / 2173.04 1417.24 / 2173.04 2188.06 / 2188.06 Output Total 250 / 1375 1125 / 1375 400 / 400 Balance 498.87 / 798.04 292.24 / 798.04 1788.06 / 1788.06 I&O: Total Stay 3 02/26/25 20:48 thru 03/01/25 07:00 Intake Total 9204.17 Output Total 1778 Balance 7426.17 Current Meds Ordered / Administered: Current meds ordered / Administered 3 Generic Name Dose Route Start Last Admin Trade Name Freq PRN Reason Stop Dose Admin Acetaminophen 650 mg 02/28/25 11:30 02/28/25 17:05 Acetaminophen 650 Mg Suppository RC 650 mg Q4H PRN PRN Administration FEVER Acetaminophen 650 mg 03/01/25 01:35 03/01/25 05:49 Acetaminophen 325 Mg Tablet PO 650 mg Q4H PRN PRN Administration Pain 1-10 or Fever Albuterol/Ipratropium 3 ml 02/27/25 02:02 02/28/25 03:08 Ipratropium/Albuterol Sulfate 3 Ml Ampul.Neb INHALATION 3 ml Q4H PRN PRN Administration wheezing Albuterol/Ipratropium 3 ml 02/27/25 02:30 03/01/25 06:46 Ipratropium/Albuterol Sulfate 3 Ml Ampul.Neb INHALATION 3 ml Q6HWA.RT GABBY Administration Atorvastatin Calcium 80 mg 02/27/25 22:00 02/28/25 21:16 Atorvastatin Calcium 80 Mg Tablet PO 80 mg QHS GABBY Administration Budesonide 0.5 mg 02/28/25 18:15 03/01/25 06:46 Budesonide Respules 0.5 Mg/2 Ml Ampul.Neb. INHALATION 0.5 mg BID.RT GABBY Administration Chlorhexidine Gluconate 1 each 02/28/25 10:00 03/01/25 05:45 Chlorhexidine Gluc 2% Cloth 1 Each Towelette TOPICAL 1 each DAILY GABBY Administration Clopidogrel Bisulfate 75 mg 02/27/25 10:00 02/28/25 11:53 Clopidogrel Bisulfate 75 Mg Tablet PO Not Given DAILY GABBY Dicyclomine HCl 20 mg 02/27/25 02:02 Dicyclomine 10 Mg Capsule PO Q6H PRN PRN abdominal discomfort Enoxaparin Sodium 40 mg 02/27/25 10:00 03/01/25 08:34 Enoxaparin 40 Mg/0.4 Ml Syringe SC 40 mg DAILY GABBY Administration Folic Acid 1 mg 02/27/25 08:00 03/01/25 08:32 Folic Acid 1 Mg Tablet PO Not Given BREAKFAST GABBY Furosemide 40 mg 02/28/25 16:30 03/01/25 08:35 Furosemide 40 Mg/4 Ml Vial IV 40 mg BIDLX GABBY Administration Protocol Gabapentin 300 mg 02/27/25 02:02 02/27/25 12:15 Gabapentin 300 Mg Capsule PO 300 mg Q8H PRN PRN Administration moderate to severe anxiety Hydroxyzine Pamoate 50 mg 02/27/25 02:02 02/28/25 21:19 Hydroxyzine Jodee 25 Mg Capsule PO 50 mg Q4H PRN PRN Administration mild anxiety Vancomycin IV-PHARMACY TO DOSE 500 mls @ 250 mls/hr 02/27/25 02:02 1 each/ Sodium Chloride IV X1 PRN Rx to Dose Protocol Cefepime HCl 2 gm/ Sodium 100 mls @ 200 mls/hr 02/27/25 10:00 02/28/25 21:59 Chloride IV Infused Q12 GABBY Infusion Sodium Chloride 250 mls @ 15 mls/hr 02/27/25 02:04 IV .[id number] PRN Saline Flush Sodium Chloride 250 mls @ 15 mls/hr 02/27/25 02:04 IV .[id number] PRN Additional IVPB Infusion Metronidazole 500 mg in 100 mls @ 100 mls/hr 02/28/25 02:45 03/01/25 08:59 Flagyl IV 100 mls/hr Q8 GABBY Administration Pantoprazole Sodium 40 mg/ 100 mls @ 300 mls/hr 02/28/25 10:00 03/01/25 08:51 Sodium Chloride IV 300 mls/hr Q24 GABBY Administration Dexmedetomidine HCl 400 mcg/ 100 mls @ 15.625 mls/hr 02/28/25 10:30 03/01/25 07:00 Sodium Chloride CONT INF 0.5 mcg/kg/hr .Q6H24M GABBY 15.4 mls/hr Titration Protocol 0.5 MCG/KG/HR Vancomycin HCl 2,000 mg/ 540 mls @ 250 mls/hr 02/28/25 14:00 03/01/25 04:10 Sodium Chloride IV Infused Q12H GABBY Infusion Doxycycline Hyclate 100 mg/ 250 mls @ 250 mls/hr 02/28/25 16:00 03/01/25 01:38 Sodium Chloride IV Infused Q12 GABBY Infusion Thiamine HCl 200 mg/ Sodium 52 mls @ 200 mls/hr 02/28/25 16:00 02/28/25 16:39 Chloride IV Infused DAILY GABBY Infusion Loperamide HCl 2 mg 02/27/25 02:02 Loperamide 2 Mg Capsule PO Q4H PRN PRN DIARRHEA/LOOSE STOOLS Lorazepam 1 mg 03/01/25 01:11 03/01/25 05:36 Lorazepam 2 Mg/Ml Syringe IV 1 mg Q4H PRN PRN Administration Alcohol Withdrawal Montelukast Sodium 10 mg 02/27/25 10:00 02/28/25 07:51 Montelukast 10 Mg Tablet PO Not Given DAILY GABBY Multivitamins 1 tablet 03/01/25 12:00 Multivitamins,Therapeutic Tablet PO LUNCH GABBY Nicotine 14 mg 02/27/25 02:02 03/01/25 08:35 Nicotine 14 Mg Patch TD 14 mg DAILY GABBY Administration Ondansetron HCl 8 mg 02/27/25 02:02 Ondansetron 8 Mg Tablet PO Q8H PRN PRN NAUSEA Phenobarbital 65 mg 02/28/25 21:00 03/01/25 08:31 Phenobarbital Sodium 65 Mg/Ml Vial IV 03/03/25 16:59 65 mg Q4H GABBY Administration Taper Sodium Chloride 10 - 40 ml 02/27/25 02:04 03/01/25 05:35 0.9% Saline Lock 10 Ml Syringe IV 20 ml UD PRN Administration SALINE FLUSH Trazodone HCl 100 mg 02/27/25 02:02 Trazodone 100 Mg Tablet PO QHS PRN PRN INSOMNIA Vancomycin Protocol 1 lab 03/02/25 00:30 Vancomycin Trough/Random Due MC 03/02/25 02:30 DAILY [facility] Lab / Micro Data 03/01/25 04:36 03/01/25 04:36 Labs: Laboratory Results - last 24 hr 02/28/25 11:15: Vancomycin Trough 14.7 02/28/25 15:00: Ammonia 19.7, Lipase 22 02/28/25 16:25: D-Dimer Quant (PE/DVT) 2.78 H* 03/01/25 04:36: WBC 13.0 H, RBC 4.14 L, Hgb 11.9 L, Hct 37.8 L, MCV 91.3 D, MCH28.7, MCHC 31.5 L D, RDW Std Deviation 49.4 H, RDW Coeff of Carlos 14.6, Plt Count TNP, MPV 10.7, Immature Gran % (Auto) 0.800, Neut % (Auto) 82.5 H, Lymph % (Auto) 8.4 L, Emanuel % (Auto) 7.3, Eos % (Auto) 0.2, Baso % (Auto) 0.8, Absolute Neuts (auto) 10.7 H, Absolute Lymphs (auto) 1.09, Nucleated RBC % 0, Differential Comment SCANNED, Platelet Estimate ADEQUATE, Sodium 134, Potassium 4.3, Chloride 103, Carbon Dioxide 20.5 L, Anion Gap 11, BUN 18, Creatinine 1.09,Estim Creat Clear Calc 87.71, Est GFR (MDRD) Non-Af 75, BUN/Creatinine Ratio 16.7, Glucose 109 H, Calcium 7.6, NT pro BNP II 2914 H Micro: Microbiology 02/26/25 20:20 Urine, Clean Catch Urine Culture - Final Mixed Gram Positive Organisms 02/26/25 21:05 Blood Culture (Wb) - Anticubital Left Blood Culture - Preliminary No growth in 48 hours. 02/26/25 20:55 Blood Culture (Wb) - Left Wrist Blood Culture - Preliminary No growth in 48 hours. 02/28/25 20:15 Mucosa - Nasopharyngeal Coronavirus COVID-19 PCR - Final 02/28/25 18:20 Nasal Secretion MRSA (PCR) - Final 02/28/25 15:15 Urine Catheter - Schreiber Legionella Antigen - Final 02/28/25 15:15 Urine Catheter - Schreiber Streptococcus pneumoniae Antigen (M - Final ABG Data ABG results: ABG 02/28/25 10:31 Specimen Type ART Sample Site L Radial pH 7.48 H Bicarbonate Actual 25.5 Total CO2 27 Base Excess 2 O2 Saturation 97 O2 % 3.0 ABG pCO2 34.3 L ABG pO2 85 Ryan Test Negative O2 Delivery Device Not entered Vent Mode Not entered Imaging Radiology Impression Echocardiogram 02/28/25 14:46 Interpretation Summary Normal LV size. Mild concentric left ventricular hypertrophy. The estimated ejection fraction is 50 %. Normal diastology for age. Normal RV size. Normal systolic function. Unable to estimate RV systolic pressure due to insufficient tricuspid regurgitant envelope. Ordering Physician: Gamal Calero Performed By: Mukesh Mejias [facility] Chest CTA 02/28/25 18:28 IMPRESSION: 1. Right lower lobar pneumonia, substantially increased from prior exam. 2. Associated small right parapneumonic pleural effusion. 3. Presumed reactive right hilar and mediastinal lymphadenopathy. 4. No central pulmonary arterial emboli. Segmental-subsegmental branches are not adequately evaluated on this exam due to significant respiratory motion artifact. Reading Location: [id number] Chest X-Ray 03/01/25 04:10 IMPRESSION: Suspect interval worsening in right mid and lower lung zone airspace disease. Reading [facility] Assessment and Plan . Assessment and plan: Subjective: no acute events o/n. Remains febrile Physical Exam: Gen - NAD, morbidly obese, lethargic HEENT - MMM. Sclera anicteric Resp - Prolonged exp phase, diminished air movement. Tachypneic CV - RRR. No m/g/r Abd - Soft, NT, ND Ext - No c/c/e. Skin - No rashes? Neuro - Drowsy on precedex. Intermittent agitation I have reviewed the pertinent vital sign, laboratory, and imaging data. ASSESSMENT: # Acute hypoxic respiratory failure # PNA - suspected aspiration # Acute encephalopathy - concern for EtOH withdrawal given heavy EtOH abuse. Last drink 02/25. CT/MR brain without acute infarct. Likely component of metabolic/septic encephalopathy as well # h/o CVA - noted on MR brain. ?chronic gliosis vs demyelination as well # Fever # Asthma/COPD # Hyponatremia # Anemia # HTN # Obesity # GERD # h/o tobacco use PLAN: -Try switching to HHFNC to see if improves WOB. Wean to keep sats ~90-92% -Cont vanc/cefepime/flagyl/doxy, f/u Cx. MRSA nares, urine strep/legionella, viral panel neg. May be able to stop vanc if improving -Monitor mental status. Cont PRN ativan per CIWA score, PRN precedex. Cont phenobarbital taper but hold for excessive sedation. Ammonia, TSH wnl. UDS neg -Agree with ID consult given persistent fever. May need to consider LP as well. Check procal -CTA chest with RLL PNA, no large PE noted. CT A/P without acute pathology -Monitor for worsening R pleural effusion -Budesonide, duonebs. Add solumedrol today -TTE w/ LVEF 50%, normal RV. -IVF stopped, receiving dose of lasix today. Avoid overdiuresis/volume depletion -IV thiamine, MVI FEN/GI: NPO until more awake Proph DVT/GI: Lovenox, protonix Updated at bedside yest Critical Care Time: 50 mins The entirety of this encounter was done via telemedicine using both audio and video. Consent was unable to be obtained for the telemedicine encounter due to the patient's mental status. 03/01/25 6860 <Electronically signed by Gamal Calero MD> Cosigner Signature (if applicable): CC: ~ Signed [facility] Work Phone: [phone] 486-632508-14-2025 Consult note [facility] Medical Records Department [address] [place] [address] Consultation - Infectious Dx 03/01/25 1045 MR#: [id number] Acct: [id number] Name: ELIS BILLS Rep #:[id number] : 1960 64 From: Pilar villavicencio MD PCP: Anna Sanders PA-C Status:ADM IN Location: ICU ICU01-1 Assessment & Plan Assessment/Plan (1) Sepsis: QUALIFIERS: Sepsis type: sepsis due to unspecified organism Sepsis acute organ dysfunction status: with acute organ dysfunction Severe sepsis acute organ dysfunction type: encephalopathy Severe sepsis shock status:without septic shock Qualified Code(s): A41.9 - Sepsis, unspecified organism; R65.20 - Severe sepsis without septic shock; G93.41 - Metabolic encephalopathy PLAN: Still high fever, infectious workup neg so far besides for presumed aspiration pneumonia. Lyme pending. Etoh withdrawal could be playing a part inhis temps. Cont broad coverage for now with vanc, cefepime, doxy, flagyl. Low suspicion for meningitis at this time if he is able to wake and interact withouthead/neck pain when sedation is weaned. Will follow, thank you, d/w nursing (2) Aspiration pneumonia: QUALIFIERS: Aspiration pneumonia type: unspecified Laterality: right Lung location: lower lobe of lung Qualified Code(s): J69.0 - Pneumonitis due to inhalation of food and vomit (3) Acute metabolic encephalopathy: HPI Consult Data Date of Consult: 03/01/25 HPI Narrative Reason for Consultation: fever HPI Narrative: ELIS BILLS, is a 64 M with h/o etoh abuse, obesity, COPD presented to [facility] 02/25 with 2 days confusion, fall at home. Had some pain in knee per 's report in ED. Admitted to icu, now on vanc/cefepime/flagyl/doxy and iv steroids. Still with high fevers. Per nursing, when precedex is weaned, he is awake, talking, interactive, able to move head/neck. Full ROS limited due to to mental status. [facility] Medical History Hyperlipemia Hypertension GERD (gastroesophageal reflux disease) Home Medications ?Medication ?Instructions ?Recorded ?Last Taken ?Type atorvastatin 80 mg tablet 80 mg PO DAILY 03/22/2211/07 History clopidogrel 75 mg tablet 75 mg PO DAILY 03/22/2211/07 History lisinopril 2.5 mg tablet 2.5 mg PO DAILY 03/22/2211/07 History esomeprazole magnesium 40 mg 40 mg PO DAILY 02/26/25 U nknown History capsule,delayed release folic acid 1 mg tablet 1 mg PO DAILY 02/26/25 Unkno wn History ipratropium 0.5 mg-albuterol 3 mg 3 ml continuous nebu lization Q4H 02/26/25 Unknown History (2.5 mg base)/3 mL nebulization PRN PRN wheezing soln montelukast 10 mg tablet 10 mg PO DAILY 02/26/25 Unkn own History thiamine HCl (vitamin B1) 100 mg 100 mg PO DAILY 02/26 Unknown History tablet umeclidinium 62.5 mcg-vilanterol 1 ea inhalation DAILY 02/26/25 Unknown History 25 mcg/actuation powdr for inhalation (Anoro Ellipta) Allergy/AdvReac Type Severity Reaction Status Date / Time Penicillins (PCN) Allergy Unknown - Verified 02/28/25 10:02 WAS A BABY Social History Smoking Status: Current every day smoker tobacco type: cigarettes Physical Exam Const no apparent distress General Appearance: lethargic HEENT normocephalic and head/scalp atraumatic Eyes PERRL and EOMs intact bilaterally Neck supple and No nodes Resp Auscultation: rhonchi and diminished lung sounds Cardio regular rate and regular rhythm GI soft to palpation, non-tender and non-distended Extremity General Extremity: edema Skin no rashes or lesions noted Neuro CN's II-XII intact bilaterally Lab / Micro Data Attestation: I reviewed the patient's lab results. 03/01/25 04:36 03/01/25 04:36 Labs: Laboratory Results - last 24 hr 02/28/25 11:15: Vancomycin Trough 14.7 02/28/25 15:00: Ammonia 19.7, Lipase 22 02/28/25 16:25: D-Dimer Quant (PE/DVT) 2.78 H* 03/01/25 04:36: WBC 13.0 H, RBC 4.14 L, Hgb 11.9 L, Hct 37.8 L, MCV 91.3 D, MCH28.7, MCHC 31.5 L D,RDW Std Deviation 49.4 H, RDW Coeff of Carlos 14.6, Plt Count TNP, MPV 10.7, Immature Gran % (Auto) 0.800, Neut % (Auto) 82.5 H, Lymph % (Auto) 8.4 L, Emanuel % (Auto) 7.3, Eos % (Auto) 0.2, Baso % (Auto) 0.8, Absolute Neuts (auto) 10.7 H, Absolute Lymphs (auto) 1.09, Nucleated RBC % 0, Differential Comment SCANNED, Platelet Estimate ADEQUATE, Sodium 134, Potassium 4.3, Chloride 103, Carbon Dioxide 20.5 L, Anion Gap 11, BUN 18, Creatinine 1.09,Estim Creat Clear Calc 87.71, Est GFR (MDRD) Non-Af 75, BUN/Creatinine Ratio 16.7, Glucose 109 H, Calcium 7.6, Total Bilirubin 0.47, Direct Bilirubin 0.24, AST 77 H, ALT 48 H, Alkaline Phosphatase 95, NT pro BNP II 2914 H, Total Protein 6.3, Albumin 3.2 L, Globulin 3.1 Micro: Microbiology 02/26/25 20:20 Urine, Clean Catch Urine Culture - Final Mixed Gram Positive Organisms 02/26/25 21:05 Blood Culture (Wb) - Anticubital Left Blood Culture - Preliminary No growth in 48 hours. 02/26/25 20:55 Blood Culture (Wb) - Left Wrist Blood Culture - Preliminary No growth in 48 hours. 02/28/25 20:15 Mucosa - Nasopharyngeal Coronavirus COVID-19 PCR - Final 02/28/25 18:20 Nasal Secretion MRSA (PCR) - Final 02/28/25 15:15 Urine Catheter - Schreiber Legionella Antigen - Final 02/28/25 15:15 Urine Catheter - Schreiber Streptococcus pneumoniae Antigen (M - Final Imaging Radiology Impression Echocardiogram 02/28/25 14:46 Interpretation Summary Normal LV size. Mild concentric left ventricular hypertrophy. The estimated ejection fraction is 50 %. Normal diastology for age. Normal RV size. Normal systolic function. Unable to estimate RV systolic pressure due to insufficient tricuspid regurgitant envelope. Ordering Physician: Gamal Calero Performed By: Mukesh Mejias [facility] Chest CTA 02/28/25 18:28 IMPRESSION: 1. Right lower lobar pneumonia, substantially increased from prior exam. 2. Associated small right parapneumonic pleural effusion. 3. Presumed reactive right hilar and mediastinal lymphadenopathy. 4. No central pulmonary arterial emboli. Segmental-subsegmental branches are not adequately evaluated on this exam due to significant respiratory motion artifact. Reading Location: [facility] Chest X-Ray 03/01/25 04:10 IMPRESSION: Suspect interval worsening in right mid and lower lung zone airspace disease. Reading Location: [place] [address] 03/01/25 1049 Cosigner Signature (if applicable): CC: STEVE Sanders~ Signed [facility]08-14-2025 Progress note [facility] Medical Records Department [address] [place] [id number] Progress Note - Supervisor [employer] 03/01/25 0903 MR#: [id number] Acct: [id number] Name: ELIS BILLS Rep #:[id number] : 1960 64 From: Gamal Calero MD PCP: Anna Sanders PA-C Status:ADM IN Location: ICU ICU01-1 Objective Data Objective Data Vital Signs: Vital Signs Last response 3 Temperature 39.7 C H 03/01/25 07:00 Temperature Source Core 03/01/25 07:00 Pulse Rate 95 03/01/25 07:00 Pulse Strength Normal (2+) 02/28/25 10:00 Respiratory Rate 35 H 03/01/25 07:00 Respiratory Effort Short of Breath 03/01/25 04:00 Respiratory Depth Shallow 03/01/25 04:00 Respiratory Pattern Tachypnea 03/01/25 06:47 Blood Pressure 114/66 03/01/25 07:00 Blood Pressure Mean 82 03/01/25 07:00 Blood Pressure Source Monitor 03/01/25 07:00 Blood Pressure Position Semi-Fowlers 03/01/25 07:00 Blood Pressure Location Left Arm 03/01/25 07:00 Pulse Ox 95 03/01/25 07:00 Oxygen Delivery Method Nasal Cannula 03/01/25 07:00 Oxygen Flow Rate (L/min) 3 03/01/25 07:00 Fraction of Inspired Oxygen (FIO2) 5 02/28/25 17:00 I&O: I&O Last 24 Hours 3 02/28/25 02/28/25 03/01/25 11:59 23:59 11:59 Intake Total 748.87 / 2173.04 1417.24 / 2173.04 2188.06 / 2188.06 Output Total 250 / 1375 1125 / 1375 400 / 400 Balance 498.87 / 798.04 292.24 / 798.04 1788.06 / 1788.06 I&O: Total Stay 3 02/26/25 20:48 thru 03/01/25 07:00 Intake Total 9204.17 Output Total 1778 Balance 7426.17 Current Meds Ordered / Administered: Current meds ordered / Administered 3 Generic Name Dose Route Start Last Admin Trade Name Freq PRN Reason Stop Dose Admin Acetaminophen 650 mg 02/28/25 11:30 02/28/25 17:05 Acetaminophen 650 Mg Suppository RC 650 mg Q4H PRN PRN Administration FEVER Acetaminophen 650 mg 03/01/25 01:35 03/01/25 05:49 Acetaminophen 325 Mg Tablet PO 650 mg Q4H PRN PRN Administration Pain 1-10 or Fever Albuterol/Ipratropium 3 ml 02/27/25 02:02 02/28/25 03:08 Ipratropium/Albuterol Sulfate 3 Ml Ampul.Neb INHALATION 3 ml Q4H PRN PRN Administration wheezing Albuterol/Ipratropium 3 ml 02/27/25 02:30 03/01/25 06:46 Ipratropium/Albuterol Sulfate 3 Ml Ampul.Neb INHALATION 3 ml Q6HWA.RT GABBY Administration Atorvastatin Calcium 80 mg 02/27/25 22:00 02/28/25 21:16 Atorvastatin Calcium 80 Mg Tablet PO 80 mg QHS GABBY Administration Budesonide 0.5 mg 02/28/25 18:15 03/01/25 06:46 Budesonide Respules 0.5 Mg/2 Ml Ampul.Neb. INHALATION 0.5 mg BID.RT GABBY Administration Chlorhexidine Gluconate 1 each 02/28/25 10:00 03/01/25 05:45 Chlorhexidine Gluc 2% Cloth 1 Each Towelette TOPICAL 1 each DAILY GABBY Administration Clopidogrel Bisulfate 75 mg 02/27/25 10:00 02/28/25 11:53 Clopidogrel Bisulfate 75 Mg Tablet PO Not Given DAILY GABBY Dicyclomine HCl 20 mg 02/27/25 02:02 Dicyclomine 10 Mg Capsule PO Q6H PRN PRN abdominal discomfort Enoxaparin Sodium 40 mg 02/27/25 10:00 03/01/25 08:34 Enoxaparin 40 Mg/0.4 Ml Syringe SC 40 mg DAILY GABBY Administration Folic Acid 1 mg 02/27/25 08:00 03/01/25 08:32 Folic Acid 1 Mg Tablet PO Not Given BREAKFAST GABBY Furosemide 40 mg 02/28/25 16:30 03/01/25 08:35 Furosemide 40 Mg/4 Ml Vial IV 40 mg BIDLX GABBY Administration Protocol Gabapentin 300 mg 02/27/25 02:02 02/27/25 12:15 Gabapentin 300 Mg Capsule PO 300 mg Q8H PRN PRN Administration moderate to severe anxiety Hydroxyzine Pamoate 50 mg 02/27/25 02:02 02/28/25 21:19 Hydroxyzine Jodee 25 Mg Capsule PO 50 mg Q4H PRN PRN Administration mild anxiety Vancomycin IV-PHARMACY TO DOSE 500 mls @ 250 mls/hr 02/27/25 02:02 1 each/ Sodium Chloride IV X1 PRN Rx to Dose Protocol Cefepime HCl 2 gm/ Sodium 100 mls @ 200 mls/hr 02/27/25 10:00 02/28/25 21:59 Chloride IV Infused Q12 GABBY Infusion Sodium Chloride 250 mls @ 15 mls/hr 02/27/25 02:04 IV .[id number] PRN Saline Flush Sodium Chloride 250 mls @ 15 mls/hr 02/27/25 02:04 IV .[id number] PRN Additional IVPB Infusion Metronidazole 500 mg in 100 mls @ 100 mls/hr 02/28/25 02:45 03/01/25 08:59 Flagyl IV 100 mls/hr Q8 GABBY Administration Pantoprazole Sodium 40 mg/ 100 mls @ 300 mls/hr 02/28/25 10:00 03/01/25 08:51 Sodium Chloride IV 300 mls/hr Q24 GABBY Administration Dexmedetomidine HCl 400 mcg/ 100 mls @ 15.625 mls/hr 02/28/25 10:30 03/01/25 07:00 Sodium Chloride CONT INF 0.5 mcg/kg/hr .Q6H24M GABBY 15.4 mls/hr Titration Protocol 0.5 MCG/KG/HR Vancomycin HCl 2,000 mg/ 540 mls @ 250 mls/hr 02/28/25 14:00 03/01/25 04:10 Sodium Chloride IV Infused Q12H GABBY Infusion Doxycycline Hyclate 100 mg/ 250 mls @ 250 mls/hr 02/28/25 16:00 03/01/25 01:38 Sodium Chloride IV Infused Q12 GABBY Infusion Thiamine HCl 200 mg/ Sodium 52 mls @ 200 mls/hr 02/28/25 16:00 02/28/25 16:39 Chloride IV Infused DAILY GABBY Infusion Loperamide HCl 2 mg 02/27/25 02:02 Loperamide 2 Mg Capsule PO Q4H PRN PRN DIARRHEA/LOOSE STOOLS Lorazepam 1 mg 03/01/25 01:11 03/01/25 05:36 Lorazepam 2 Mg/Ml Syringe IV 1 mg Q4H PRN PRN Administration Alcohol Withdrawal Montelukast Sodium 10 mg 02/27/25 10:00 02/28/25 07:51 Montelukast 10 Mg Tablet PO Not Given DAILY GABBY Multivitamins 1 tablet 03/01/25 12:00 Multivitamins,Therapeutic Tablet PO LUNCH GABBY Nicotine 14 mg 02/27/25 02:02 03/01/25 08:35 Nicotine 14 Mg Patch TD 14 mg DAILY GABBY Administration Ondansetron HCl 8 mg 02/27/25 02:02 Ondansetron 8 Mg Tablet PO Q8H PRN PRN NAUSEA Phenobarbital 65 mg 02/28/25 21:00 03/01/25 08:31 Phenobarbital Sodium 65 Mg/Ml Vial IV 03/03/25 16:59 65 mg Q4H GABBY Administration Taper Sodium Chloride 10 - 40 ml 02/27/25 02:04 03/01/25 05:35 0.9% Saline Lock 10 Ml Syringe IV 20 ml UD PRN Administration SALINE FLUSH Trazodone HCl 100 mg 02/27/25 02:02 Trazodone 100 Mg Tablet PO QHS PRN PRN INSOMNIA Vancomycin Protocol 1 lab 03/02/25 00:30 Vancomycin Trough/Random Due MC 03/02/25 02:30 DAILY [facility] Lab / Micro Data 03/01/25 04:36 03/01/25 04:36 Labs: Laboratory Results - last 24 hr 02/28/25 11:15: Vancomycin Trough 14.7 02/28/25 15:00: Ammonia 19.7, Lipase 22 02/28/25 16:25: D-Dimer Quant (PE/DVT) 2.78 H* 03/01/25 04:36: WBC 13.0 H, RBC 4.14 L, Hgb 11.9 L, Hct 37.8 L, MCV 91.3 D, MCH28.7, MCHC 31.5 L D,RDW Std Deviation 49.4 H, RDW Coeff of Carlos 14.6, Plt Count TNP, MPV 10.7, Immature Gran % (Auto) 0.800, Neut % (Auto) 82.5 H, Lymph % (Auto) 8.4 L, Emanuel % (Auto) 7.3, Eos % (Auto) 0.2, Baso % (Auto) 0.8, Absolute Neuts (auto) 10.7 H, Absolute Lymphs (auto) 1.09, Nucleated RBC % 0, Differential Comment SCANNED, Platelet Estimate ADEQUATE, Sodium 134, Potassium 4.3, Chloride 103, Carbon Dioxide 20.5 L, Anion Gap 11, BUN 18, Creatinine 1.09,Estim Creat Clear Calc 87.71, Est GFR (MDRD) Non-Af 75, BUN/Creatinine Ratio 16.7, Glucose 109 H, Calcium 7.6, NT pro BNP II 2914 H Micro: Microbiology 02/26/25 20:20 Urine, Clean Catch Urine Culture - Final Mixed Gram Positive Organisms 02/26/25 21:05 Blood Culture (Wb) - Anticubital Left Blood Culture - Preliminary No growth in 48 hours. 02/26/25 20:55 Blood Culture (Wb) - Left Wrist Blood Culture - Preliminary No growth in 48 hours. 02/28/25 20:15 Mucosa - Nasopharyngeal Coronavirus COVID-19 PCR - Final 02/28/25 18:20 Nasal Secretion MRSA (PCR) - Final 02/28/25 15:15 Urine Catheter - Schreiber Legionella Antigen - Final 02/28/25 15:15 Urine Catheter - Schreiber Streptococcus pneumoniae Antigen (M - Final ABG Data ABG results: ABG 02/28/25 10:31 Specimen Type ART Sample Site L Radial pH 7.48 H Bicarbonate Actual 25.5 Total CO2 27 Base Excess 2 O2 Saturation 97 O2 % 3.0 ABG pCO2 34.3 L ABG pO2 85 Ryan Test Negative O2 Delivery Device Not entered Vent Mode Not entered Imaging Radiology Impression Echocardiogram 02/28/25 14:46 Interpretation Summary Normal LV size. Mild concentric left ventricular hypertrophy. The estimated ejection fraction is 50 %. Normal diastology for age. Normal RV size. Normal systolic function. Unable to estimate RV systolic pressure due to insufficient tricuspid regurgitant envelope. Ordering Physician: Gamal Calero Performed By: Mukesh Mejias [facility] Chest CTA 02/28/25 18:28 IMPRESSION: 1. Right lower lobar pneumonia, substantially increased from prior exam. 2. Associated small right parapneumonic pleural effusion. 3. Presumed reactive right hilar and mediastinal lymphadenopathy. 4. No central pulmonary arterial emboli. Segmental-subsegmental branches are not adequately evaluated on this exam due to significant respiratory motion artifact. Reading Location: [id number] Chest X-Ray 03/01/25 04:10 IMPRESSION: Suspect interval worsening in right mid and lower lung zone airspace disease. Reading [facility] Assessment and Plan . Assessment and plan: Subjective: no acute events o/n. Remains febrile Physical Exam: Gen - NAD, morbidly obese, lethargic HEENT - MMM. Sclera anicteric Resp - Prolonged exp phase, diminished air movement. Tachypneic CV - RRR. No m/g/r Abd - Soft, NT, ND Ext - No c/c/e. Skin - No rashes? Neuro - Drowsy on precedex. Intermittent agitation I have reviewed the pertinent vital sign, laboratory, and imaging data. ASSESSMENT: # Acute hypoxic respiratory failure # PNA - suspected aspiration # Acute encephalopathy - concern for EtOH withdrawal given heavy EtOH abuse. Last drink 02/25. CT/MRbrain without acute infarct. Likely component of metabolic/septic encephalopathy as well # h/o CVA - noted on MR brain. ?chronic gliosis vs demyelination as well # Fever # Asthma/COPD # Hyponatremia # Anemia # HTN # Obesity # GERD # h/o tobacco use PLAN: -Try switching to HHFNC to see if improves WOB. Wean to keep sats ~90-92% -Cont vanc/cefepime/flagyl/doxy, f/u Cx. MRSA nares, urine strep/legionella, viral panel neg. May be able to stop vanc if improving -Monitor mental status. Cont PRN ativan per CIWA score, PRN precedex. Cont phenobarbital taper but hold for excessive sedation. Ammonia, TSH wnl. UDS neg -Agree with ID consult given persistent fever. May need to consider LP as well. Check procal -CTA chest with RLL PNA, no large PE noted. CT A/P without acute pathology -Monitor for worsening R pleural effusion -Budesonide, duonebs. Add solumedrol today -TTE w/ LVEF 50%, normal RV. -IVF stopped, receiving dose of lasix today. Avoid overdiuresis/volume depletion -IV thiamine, MVI FEN/GI: NPO until more awake Proph DVT/GI: Lovenox, protonix Updated at bedside yest Critical Care Time: 50 mins The entirety of this encounter was done via telemedicine using both audio and video. Consent was unable to be obtained for the telemedicine encounter due to the patient's mental status. 03/01/25 0953 Cosigner Signature (if applicable): CC: ~ Signed [facility]08-14-2025 Radiology Diagnostic study note [facility] Imaging Services [address] [place] [address] Chest 1 View (Portable) MR#: [id number] Acct: [id number] Name: ELIS BILLS Rep #: [id number] : 1960 M 64 From: Kate Arellano MD PCP: Anna Sanders PA-C Status: ADM IN Study:Chest 1 View (Portable) Date of Exam: 03/01/25 Exam# [id number] Ordering Dr: Mechelle Ramirez DO PROCEDURE: CHEST 1 VIEW (PORTABLE) 03/01/2025 REASON FOR EXAM: POSSIBLE FLUID OVERLOAD TECHNIQUE: Frontal view of the chest. COMPARISON: 02/28/2025 FINDINGS: Rotated and lordotic patient. Normal heart size. Persistent right base airspace disease, atelectasis/consolidation. Possible developing right central mid lung airspace disease. No effusion or pneumothorax. RAD/Chest 1 View (Portable) IMPRESSION: Suspect interval worsening in right mid and lower lung zone airspace disease. Reading Location: [place] [address] CC: STEVE Sanders; Dr. Mechelle Maya DO ~ Litigation Attorney: Signed [facility]08-13-2025 Progress note [facility] Note Date/Time February 28, 2025 6: 29pm [facility] Medical Records Department [address] [place] [address] Progress Note 02/28/25 1523 MR#: [id number] Acct: [id number] Name: ELIS BILLS Rep #:[id number] : 1960 64 From: Maira Yeh MD PCP: Anna Sanders PA-C Status:ADM IN Location: ICU ICU01-1 Subjective Subjective Patient seen and examined. He was transferred to the ICU overnight due to worsening shortness of breath as he was thought to have aspirated watermelon. Hewas tachcyardic and developed a fever. This morning, he remained febrile, with temperature up to 103F. HE is on 3L of oxygen. Patient is confused and shivering at time of my review. He was confused. HE was on 5L of oxygne at time of my review, but subsequently came down to 3L. He does have a history of alcohol use disorder, and told me today that his last drink was on Wednesday, 3 days ago. He says he has at least 6 drinks daily. I am concerned that patient isgoing into DTs. Critical care consulted this morning. Objective Data Objective Data Vital Signs: Vital Signs Temp Pulse Resp BP Pulse Ox O2 Del Method O2 Flow Rate 102.6 F H 70 32 H 106/76 100 Nasal Cannula 3 02/28/25 15:00 02/28/25 15:00 02/28/25 15:00 02/28/25 15:00 02/28/25 15:00 02/28/25 15:00 02/28/25 15:00 Oxygen Flow Rate (L/min) 3 Oxygen Delivery Method Nasal Cannula Weight: 272 lb 0.807 oz Body Mass Index (BMI) 40.3 Intake & Output: Intake and Output for Last 24 Hours 02/26/25 02/27/25 02/28/25 23:59 23:59 23:59 Intake Total 1000 / 1000 3850 / 3850 981.27 / 981.27 Output Total / 500 / 500 Balance 1000 / 1000 3847 / 3847 481.27 / 481.27 Lab / Micro Data 02/28/25 03:02 02/28/25 03:02 Labs: Laboratory Results - last 24 hr 02/27/25 17:50: WBC 16.8 H, RBC 4.03 L, Hgb 11.8 L, Hct 36.0 L, MCV 89.3 D, MCH29.3, MCHC 32.8 D, RDW Std Deviation 46.2 H, RDW Coeff of Carlos 14.1, Plt Count 290, MPV 9.3, Immature Gran % (Auto) 1.100 H, Neut % (Auto) 84.3 H, Lymph % (Auto) 5.2 L, Emanuel % (Auto) 9.2, Eos % (Auto) 0.0, Baso % (Auto) 0.2, Absolute Neuts (auto) 14.2 H, Absolute Lymphs (auto) 0.88, Nucleated RBC % 0, Differential Comment SCANNED, Platelet Estimate ADEQUATE, Sodium 131 L, Potassium 4.1, Chloride 98, Carbon Dioxide 19.8 L, Anion Gap 13, BUN 20 H, Creatinine 1.17, Estim Creat Clear Calc 80.36, Est GFR (MDRD) Non-Af 69, BUN/Creatinine Ratio 16.7, Glucose 123 H, Calcium 8.5 02/28/25 03:02: WBC 13.3 H, RBC 3.97 L, Hgb 11.7 L, Hct 34.5 L, MCV 86.9, MCH 29.5, MCHC 33.9, RDW Std Deviation 44.6 H, RDW Coeff of Carlos 14.0, Plt Count 249,MPV 9.1, Immature Gran % (Auto) 0.900, Neut % (Auto) 81.8 H, Lymph % (Auto) 7.6 L, Emanuel % (Auto) 8.8, Eos % (Auto) 0.5, Baso % (Auto) 0.4, Absolute Neuts (auto)10.9 H, Absolute Lymphs (auto) 1.01, Nucleated RBC % 0, Sodium 129 L, Potassium 4.0, Chloride 96 L, Carbon Dioxide 20.0 L, Anion Gap 12, BUN 18, Creatinine 0.99, Estim Creat Clear Calc 94.97, Est GFR (MDRD) Non-Af 85, BUN/Creatinine Ratio 18.1, Glucose 115 H, Lactic Acid 1.1, Calcium 8.1, Troponin T High Sens 48H D 02/28/25 05:04: Troponin T Hi Sens 2 Hr 52 H 02/28/25 07:13: Phosphorus 3.3, Magnesium 2.2, Troponin T Hi Sens 4Hr 41 H, NT pro BNP II 1621 H 02/28/25 11:15: Vancomycin Trough 14.7 Micro: Microbiology 02/26/25 20:20 Urine, Clean Catch Urine Culture - Preliminary Culture exhibits no growth. 02/27/25 03:45 Mucosa - Nasopharyngeal Respiratory Panel (PCR) - Final ABG Data ABG results: ABG 02/28/25 02/28/25 02/28/25 02:54 03:00 10:31 Specimen Type SERGIO ART ART Sample Site R BRACHIAL R RADIAL L Radial pH 7.44 7.48 H Bicarbonate Actual 23.6 25.5 Total CO2 25 27 Base Excess 0 2 O2 Saturation 95 97 O2 % 3.0 ABG pCO2 36.2 34.3 L ABG pO2 84 85 Ryan Test NEG Negative VBG pH 7.42 VBG pH (Temp Correct) 7.37 VBG pCO2 (Temp Corrct 30.4 VBG pO2 25 VBG HCO3 26 VBG Total CO2 27 VBG O2 Sat (Calc) 45 L VBG Base Excess 2 POC Mix VBG pCO2 Pt Tmp 40.5 L O2 Delivery Device Nasal Can Nasal Can Not entered Liter Flow 5.0 5.0 Vent Mode Not entered Clinical Comments PT TEMP 40 DEGREES C Temp correct 40.2C Radiography Diagnostic Testing: Radiology Impression Brain MRI 02/27/25 18:02 IMPRESSION: 1. No acute infarct. No mass lesion or pathologic enhancement. 2. Mild-moderate chronic small-vessel ischemic changes with scattered small fociof old lacunar infarcts in the bilateral oconnell radiata white matter. 3. Confluent T2 hyperintensity within the central michael may reflect prominent chronic gliotic change, but can be seen with pontine myelinolysis/demyelination in the appropriate clinical setting. Reading Location: [facility] Chest X-Ray 02/28/25 03:00 IMPRESSION: Persistent right medial basal airspace disease, possible pneumonia. Reading Location: [place] [address] Physical Exam Const alert Constitutional Narrative: lethargic, having chills and rigors. General Appearance: cooperative Orientation / Consciousness: confused HEENT normocephalic, head/scalp atraumatic, hearing grossly normal bilaterally and moist oral mucous membranes Eyes PERRL, EOMs intact bilaterally and conjunctivae normal Neck no lymphadenopathy, supple and no JVD Lymph Lymphatic: no lymphedema noted Resp Resp Narrative: moderately diminished breath sounds bibasally, no wheezes or crackles. On 3L of oxygen. Effort and Inspection: tachypneic and respiratory distress Cardio regular rate, regular rhythm, S1 normal heart sound, S2 normal heart sound and no murmurs GI normal to inspection, nondistended, normoactive bowel sounds, soft to palpation,non-tender and non-distended GI Narrative: Obese abdomen Extremity normal to inspection, full ROM, normal capillary refill, no clubbing, cyanosis or edema and no calf tenderness General Extremity: no tenderness to palpation of joints or extremities Skin Skin Narrative: Patient has no evidence of rash or jaundice. General Skin Exam: no breakdown Neuro CN's II-XII intact bilaterally Neuro Narrative: patient restless, having tremors and shakes. episodic confusion. Sensorium / Orientation: awake Motor Exam: general weakness Psych Psych Narrative: restless, confused. Assessment & Plan Assessment/Plan (1) Aspiration pneumonia: QUALIFIERS: Aspiration pneumonia type: unspecified Laterality: right Lung location: lower lobe of lung Qualified Code(s): J69.0 - Pneumonitis due to inhalation of food and vomit (2) Acute metabolic encephalopathy: PLAN: Plan #Acute alcohol withdrawal, concerning for DTs * patient transferred to ICU overnight due to worsening respiratory status. Patient febrile, tachypneic and more confused and restless * was on 5L of oxygen but now down to 3L of oxygen. * per his nurse, he has been receiving his phenobarb q4 hourly. Will start paitent on precedex drip. * critical care consulted. * ABG done showed pH of 7.48, pCO2 of 34.3 and pO2 of 85. * adjunctive meds for symptomatic relief #Acute hypoxic respiratory failure due to aspiration pneumonia and probable heart failure with unknown EF * patient was transferred out of the ICU yesterday, but transferred back to the ICU in [facility] early hours of this morning due to worsening respiratory status. * wbc is down to 13.3 today, from 17.4 on admission. * on IV vancomycin and cefepime; metronidazole added on overnight due to aspiration * sputum cultures and blood cultures pending. * breathing treatment with bronchodilators. Titrate oxygen to maintain sats >90% * critical care consulted. * pro BNP is 1621. Initial troponin was 48, and trended down to 41. * will start diuresis with IV lasix 40mg bid. Monitor intake and output * 2D echo ordered and pending. Check D dimer also, and if elevated will check CTA chest * Hyponatremia: Sodium was 126 on admission. Sodium is up to 129 today. Likely dueto beer potomania and fluid overload. Will monitor #Nicotine dependence: Counseled to quit. Nicotine patch as needed #Benign essential hypertension: On lisinopril. IV hydralazine as needed #Hyperlipidemia: On statin #GERD: PPI #osteoarthritis: tylenol prn. DVT prophylaxis: lovenox Charges/Coding Visit Charges Inpatient E&M: 35554 Subs Hosp L3 02/28/25 1753 <Electronically signed by Maira Yeh MD> Maira Yeh MD Cosigner Signature (if applicable): CC: ~ Signed ADDENDUM by Dr. Maira Yeh MD on 02/28/25 at 1829 Addendum D-dimer markedly elevated at 2.78. Will therefore order a CTA of the chest statto rule out a PE 02/28/251828 <Electronically signed by Maira saunders MD> Date _ Maira Yeh MD Cosigner Signature (if applicable): Date cc: ~* Signed [facility] Work Phone: [phone] Radiology Diagnostic study note [facility] Imaging Services [address] [place], [place] [address] CTA Chest W/WO Contrast MR#: [id number] Acct: [id number] Name: ELIS BILLS Rep #: [id number] : 1960 M 64 From: Cruz Nicole MD PCP: Anna Sanders PA-C Status: ADM IN Study:CTA Chest W/WO Contrast Date of Exam: 02/28/25 Exam# [id number] Ordering Dr: Nimisha Yeh MD PROCEDURE: CTA CHEST W/WO CONTRAST 02/28/2025 REASON FOR EXAM: ELEVATED D DIMER TECHNIQUE: CTA CHEST W/WO CONTRAST Multiplanar Sagittal and Coronal images were obtained. 3D post processing was performed. CONTRAST: Isovue 370 VOLUME: 100 mL One or more dose reduction techniques were used (e.g., Automated exposure control, adjustment of the mA and/or kV according to patient size, use of iterative reconstruction technique). RADIATION DOSE SUMMARY: DLP: 617.14 mGycm COMPARISON: CT chest 02/27/2025. FINDINGS: PULMONARY VESSELS: No central pulmonary arterial emboli filling defects. The segmental and subsegmental pulmonary arterial branches are not adequately evaluated due to significant respiratory motion artifact. Normal caliber pulmonary trunk. No evidence for right heart strain. LUNGS/PLEURA: Respiratory motion artifact. Interval increased dense consolidation and/or atelectasis within the majority of the right lower lobe, consistent with lobar pneumonia. Small right pleural effusion. No pneumothorax. Central airways are patent. MEDIASTINUM: Mediastinal lymphadenopathy, particularly with multiple enlarged right hilar and peribronchial/subcarinal lymph nodes, most likely reactive. HEART: Borderline enlarged. No pericardial effusion. Minimal coronary artery calcifications. THORACIC AORTA: Normal in course and caliber. Mild atherosclerotic calcifications. UPPER ABDOMEN: No significant abnormality visualized. BONES: Mild degenerative changes of the spine. Chronic superior endplate mild compression fracture deformity of L1 vertebral body with minimal height loss. CT/CTA Chest W/WO Contrast IMPRESSION: 1. Right lower lobar pneumonia, substantially increased from prior exam. 2. Associated small right parapneumonic pleural effusion. 3. Presumed reactive right hilar and mediastinal lymphadenopathy. 4. No central pulmonary arterial emboli. Segmental-subsegmental branches are not adequately evaluated on this exam due to significant respiratory motion artifact. Reading Location: [facility] CC: STEVE Sanders; Dr. Maira Yeh MD ~ Litigation Attorney: Signed [facility]08-13-2025 Consult note Author Gamal Calero [facility] Note Date/Time February 28, 2025 6: 21pm [facility] Medical Records Department [address] [place] [address] Consultation - Supervisor [employer] 02/28/25 1415 MR#: [id number] Acct: [id number] Name: ELIS BILLS Rep #:[id number] : 1960 64 From: Gamal Calero MD PCP: Anna Sanders PA-C Status:ADM IN Location: ICU ICU01-1 HPI Consult Data Date of Consult: 02/28/25 HPI Narrative HPI Narrative: ELIS BILLS, is a 64 M w/ asthma/COPD, EtOH abuse, HTN, morbid obesity, HLD, h/o tobacco abuse, GERD who was admitted for AMS. He apparently fell at home theday before admit and was lethargic. He had also been having some cough at home. On arrival here he was noted to have high fever >102F and with CXR concerning for PNA. He was initially admitted to floor, however overnight he had worsening agitation, tachypnea, increased O2 requirement up to 5L NC. This occurred also after he had choking on some watermelon last night. Concern for EtOH withdrawal given last drink reportedly 3-4 days ago, along with aspiration. He was started on IV phenobarbital taper along with precedex gtt and transferred to ICU. He continues to have high fever here, lethargic. Per no recent sick contacts. He drinks ~8-9 beers daily. No prior hospitalizations for EtOH withdrawal. ROS: Unable to obtain d/t [facility] Medical History Hyperlipemia Hypertension GERD (gastroesophageal reflux disease) Home Medications ?Medication ?Instructions ?Recorded ?Last Taken ?Type atorvastatin 80 mg tablet 80 mg PO DAILY 03/22/2211/07 History clopidogrel 75 mg tablet 75 mg PO DAILY 03/22/2211/07 History lisinopril 2.5 mg tablet 2.5 mg PO DAILY 03/22/2211/07 History esomeprazole magnesium 40 mg 40 mg PO DAILY 02/26/25 U nknown History capsule,delayed release folic acid 1 mg tablet 1 mg PO DAILY 02/26/25 Unkno wn History ipratropium 0.5 mg-albuterol 3 mg 3 ml continuous nebu lization Q4H 02/26/25 Unknown History (2.5 mg base)/3 mL nebulization PRN PRN wheezing soln montelukast 10 mg tablet 10 mg PO DAILY 02/26/25 Unkn own History thiamine HCl (vitamin B1) 100 mg 100 mg PO DAILY 02/26 Unknown History tablet umeclidinium 62.5 mcg-vilanterol 1 ea inhalation DAILY 02/26/25 Unknown History 25 mcg/actuation powdr for inhalation (Anoro Ellipta) Allergy/AdvReac Type Severity Reaction Status Date / Time Penicillins (PCN) Allergy Unknown - Verified 02/28/25 10:02 WAS A BABY Social History Smoking Status: Current every day smoker tobacco type: cigarettes Objective Data Objective Data Vital Signs: Vital Signs Last response 3 Temperature 39.7 C H 02/28/25 13:00 Temperature Source Core 02/28/25 13:00 Pulse Rate 73 02/28/25 13:00 Pulse Strength Normal (2+) 02/28/25 10:00 Respiratory Rate 30 H 02/28/25 13:00 Respiratory Effort Short of Breath, Labored 02/28/25 12:00 Respiratory Depth Shallow 02/28/25 12:00 Respiratory Pattern Hyperpnea 02/28/25 12:33 Blood Pressure 109/57 L 02/28/25 13:00 Blood Pressure Mean 74 02/28/25 13:00 Blood Pressure Source Monitor 02/28/25 13:00 Blood Pressure Position Semi-Fowlers 02/28/25 13:00 Blood Pressure Location Right Arm 02/28/25 13:00 Pulse Ox 99 02/28/25 13:00 Oxygen Delivery Method Nasal Cannula 02/28/25 13:00 Oxygen Flow Rate (L/min) 3 02/28/25 13:00 I&O: I&O Last 24 Hours 3 02/27/25 02/28/25 02/28/25 23:59 11:59 23:59 Intake Total 1115 / 3850 748.87 / 881.27 132.4 / 881.27 Output Total 250 / 500 250 / 500 Balance 1115 / 3847 498.87 / 381.27 -117.6 / 381.27 I&O: Total Stay 3 02/26/25 20:48 thru 02/28/25 13:15 Intake Total 5731.27 Output Total 503 Balance 5228.27 Current Meds Ordered / Administered: Current meds ordered / Administered 3 Generic Name Dose Route Start Last Admin Trade Name Freq PRN Reason Stop Dose Admin Acetaminophen 650 mg 02/27/25 02:02 02/27/25 20:15 Acetaminophen 325 Mg Tablet PO 650 mg Q6H PRN PRN Administration Pain 1-10 or Fever Acetaminophen 650 mg 02/28/25 11:30 02/28/25 11:39 Acetaminophen 650 Mg Suppository RC 650 mg Q4H PRN PRN Administration FEVER Albuterol/Ipratropium 3 ml 02/27/25 02:02 02/28/25 03:08 Ipratropium/Albuterol Sulfate 3 Ml Ampul.Neb INHALATION 3 ml Q4H PRN PRN Administration wheezing Albuterol/Ipratropium 3 ml 02/27/25 02:30 02/28/25 12:00 Ipratropium/Albuterol Sulfate 3 Ml Ampul.Neb INHALATION 3 ml Q6HWA.RT GABBY Administration Atorvastatin Calcium 80 mg 02/27/25 22:00 02/27/25 21:51 Atorvastatin Calcium 80 Mg Tablet PO 80 mg QHS GABBY Administration Chlorhexidine Gluconate 1 each 02/28/25 10:00 02/28/25 10:59 Chlorhexidine Gluc 2% Cloth 1 Each Towelette TOPICAL 1 each DAILY GABBY Administration Clopidogrel Bisulfate 75 mg 02/27/25 10:00 02/28/25 11:53 Clopidogrel Bisulfate 75 Mg Tablet PO Not Given DAILY GABBY Dicyclomine HCl 20 mg 02/27/25 02:02 Dicyclomine 10 Mg Capsule PO Q6H PRN PRN abdominal discomfort Enoxaparin Sodium 40 mg 02/27/25 10:00 02/28/25 08:04 Enoxaparin 40 Mg/0.4 Ml Syringe SC 40 mg DAILY GABBY Administration Folic Acid 1 mg 02/27/25 08:00 02/28/25 07:50 Folic Acid 1 Mg Tablet PO Not Given BREAKFAST GABBY Gabapentin 300 mg 02/27/25 02:02 02/27/25 12:15 Gabapentin 300 Mg Capsule PO 300 mg Q8H PRN PRN Administration moderate to severe anxiety Hydroxyzine Pamoate 50 mg 02/27/25 02:02 Hydroxyzine Jodee 25 Mg Capsule PO Q4H PRN PRN mild anxiety Vancomycin IV-PHARMACY TO DOSE 500 mls @ 250 mls/hr 02/27/25 02:02 1 each/ Sodium Chloride IV X1 PRN Rx to Dose Protocol Cefepime HCl 2 gm/ Sodium 100 mls @ 200 mls/hr 02/27/25 10:00 02/28/25 13:07 Chloride IV Infused Q12 GABBY Infusion Sodium Chloride 250 mls @ 15 mls/hr 02/27/25 02:04 IV .[id number] PRN Saline Flush Sodium Chloride 250 mls @ 15 mls/hr 02/27/25 02:04 IV .[id number] PRN Additional IVPB Infusion Metronidazole 500 mg in 100 mls @ 100 mls/hr 02/28/25 02:45 02/28/25 13:42 Flagyl IV 100 mls/hr Q8 GABBY Administration Pantoprazole Sodium 40 mg/ 100 mls @ 300 mls/hr 02/28/25 10:00 02/28/25 10:17 Sodium Chloride IV Infused Q24 GABBY Infusion Dexmedetomidine HCl 400 mcg/ 100 mls @ 15.425 mls/hr 02/28/25 10:30 02/28/25 13:15 Sodium Chloride CONT INF 0.7 mcg/kg/hr .Q6H29M GABBY 21.6 mls/hr Titration Protocol 0.5 MCG/KG/HR Vancomycin HCl 2,000 mg/ 540 mls @ 250 mls/hr 02/28/25 14:00 Sodium Chloride IV Q12H GABBY Loperamide HCl 2 mg 02/27/25 02:02 Loperamide 2 Mg Capsule PO Q4H PRN PRN DIARRHEA/LOOSE STOOLS Montelukast Sodium 10 mg 02/27/25 10:00 02/28/25 07:51 Montelukast 10 Mg Tablet PO Not Given DAILY GABBY Nicotine 14 mg 02/27/25 02:02 02/28/25 08:03 Nicotine 14 Mg Patch TD 14 mg DAILY GABBY Administration Ondansetron HCl 8 mg 02/27/25 02:02 Ondansetron 8 Mg Tablet PO Q8H PRN PRN NAUSEA Phenobarbital 90 mg 02/28/25 04:00 02/28/25 11:57 Phenobarbital Sodium 130 Mg/Ml Vial IV 03/03/25 15:59 90 mg Q4H GABBY Administration Taper Sodium Chloride 10 - 40 ml 02/27/25 02:04 02/28/25 04:19 0.9% Saline Lock 10 Ml Syringe IV 10 ml UD PRN Administration SALINE FLUSH Thiamine HCl 100 mg 02/27/25 10:00 02/28/25 07:51 Thiamine Hydrochloride 100 Mg Tablet PO Not Given DAILY GABBY Trazodone HCl 100 mg 02/27/25 02:02 Trazodone 100 Mg Tablet PO QHS PRN PRN INSOMNIA Vancomycin Protocol 1 lab 03/02/25 00:30 Vancomycin Trough/Random Due 03/02/25 02:30 DAILY [facility] Lab / Micro Data 02/28/25 03:02 02/28/25 03:02 Labs: Laboratory Results - last 24 hr 02/27/25 17:50: WBC 16.8 H, RBC 4.03 L, Hgb 11.8 L, Hct 36.0 L, MCV 89.3 D, MCH29.3, MCHC 32.8 D, RDW Std Deviation 46.2 H, RDW Coeff of Carlos 14.1, Plt Count 290, MPV 9.3, Immature Gran % (Auto) 1.100 H, Neut % (Auto) 84.3 H, Lymph % (Auto) 5.2 L, Emanuel % (Auto) 9.2, Eos % (Auto) 0.0, Baso % (Auto) 0.2, Absolute Neuts (auto) 14.2 H, Absolute Lymphs (auto) 0.88, Nucleated RBC % 0, Differential Comment SCANNED, Platelet Estimate ADEQUATE, Sodium 131 L, Potassium 4.1, Chloride 98, Carbon Dioxide 19.8 L, Anion Gap 13, BUN 20 H, Creatinine 1.17, Estim Creat Clear Calc 80.36, Est GFR (MDRD) Non-Af 69, BUN/Creatinine Ratio 16.7, Glucose 123 H, Calcium 8.5 02/28/25 03:02: WBC 13.3 H, RBC 3.97 L, Hgb 11.7 L, Hct 34.5 L, MCV 86.9, MCH 29.5, MCHC 33.9, RDW Std Deviation 44.6 H, RDW Coeff of Carlos 14.0, Plt Count 249,MPV 9.1, Immature Gran % (Auto) 0.900, Neut % (Auto) 81.8 H, Lymph % (Auto) 7.6 L, Emanuel % (Auto) 8.8, Eos % (Auto) 0.5, Baso % (Auto) 0.4, Absolute Neuts (auto)10.9 H, Absolute Lymphs (auto) 1.01, Nucleated RBC % 0, Sodium 129 L, Potassium 4.0, Chloride 96 L, Carbon Dioxide 20.0 L, Anion Gap 12, BUN 18, Creatinine 0.99, Estim Creat Clear Calc 94.97, Est GFR (MDRD) Non-Af 85, BUN/Creatinine Ratio 18.1, Glucose 115 H, Lactic Acid 1.1, Calcium 8.1, Troponin T High Sens 48H D 02/28/25 05:04: Troponin T Hi Sens 2 Hr 52 H 02/28/25 07:13: Phosphorus 3.3, Magnesium 2.2, Troponin T Hi Sens 4Hr 41 H, NT pro BNP II 1621 H 02/28/25 11:15: Vancomycin Trough 14.7 Micro: Microbiology 02/26/25 20:20 Urine, Clean Catch Urine Culture - Preliminary Culture exhibits no growth. ABG Data ABG results: ABG 02/28/25 02/28/25 02/28/25 02:54 03:00 10:31 Specimen Type SERGIO ART ART Sample Site R BRACHIAL R RADIAL L Radial pH 7.44 7.48 H Bicarbonate Actual 23.6 25.5 Total CO2 25 27 Base Excess 0 2 O2 Saturation 95 97 O2 % 3.0 ABG pCO2 36.2 34.3 L ABG pO2 84 85 Ryan Test NEG Negative VBG pH 7.42 VBG pH (Temp Correct) 7.37 VBG pCO2 (Temp Corrct 30.4 VBG pO2 25 VBG HCO3 26 VBG Total CO2 27 VBG O2 Sat (Calc) 45 L VBG Base Excess 2 POC Mix VBG pCO2 Pt Tmp 40.5 L O2 Delivery Device Nasal Can Nasal Can Not entered Liter Flow 5.0 5.0 Vent Mode Not entered Clinical Comments PT TEMP 40 DEGREES C Temp correct 40.2C Imaging Radiology Impression Brain MRI 02/27/25 18:02 IMPRESSION: 1. No acute infarct. No mass lesion or pathologic enhancement. 2. Mild-moderate chronic small-vessel ischemic changes with scattered small fociof old lacunar infarcts in the bilateral oconnell radiata white matter. 3. Confluent T2 hyperintensity within the central michael may reflect prominent chronic gliotic change, but can be seen with pontine myelinolysis/demyelination in the appropriate clinical setting. Reading Location: [id number] Chest X-Ray 02/28/25 03:00 IMPRESSION: Persistent right medial basal airspace disease, possible pneumonia. Reading Location: [facility] Assessment and Plan . Assessment and plan: Physical Exam: Gen - NAD, morbidly obese, lethargic HEENT - MMM. Sclera anicteric Resp - Diminished in bases. Mild tachypnea CV - RRR. No m/g/r Abd - Soft, NT, ND Ext - No c/c/e. Skin - No rashes? Neuro - Drowsy on precedex. Intermittent agitation I have reviewed the pertinent vital sign, laboratory, and imaging data. ASSESSMENT: # Acute hypoxic respiratory failure # PNA - suspected aspiration # Acute encephalopathy - concern for EtOH withdrawal given heavy EtOH abuse. Last drink 02/25. CT/MR brain without acute infarct. Likely component of metabolic/septic encephalopathy as well # h/o CVA - noted on MR brain. ?chronic gliosis vs demyelination as well # Fever # Asthma/COPD # Hyponatremia # Anemia # HTN # Obesity # GERD # h/o tobacco use PLAN: -On 3L NC, wean to keep sats ~90-92%. ABG noted. Monitor for need for intubation -Abx broadened to vanc/cefepime/flagl, add doxy as well for atypical coverage (QTc prolonged) f/u Cx, MRSA nares, urine strep/legionella. Viral panel neg but does not appear to include COVID, add this on as well -Monitor mental status. Try stopping precedex and would use PRN ativan for CIWA score instead. Cont phenobarbital taper but hold for excessive sedation -If persistent fever/AMS may need to consider LP, ID consultation -Budesonide, duonebs. Low threshold for systemic steroids if worsening respiratory failure -Obtain echo, elevated BNP -Gentle IVF, monitor Na -Check ammonia, lipase. UDS negative, TSH wnl -D-dimer pending, may need VTE rule out -IV thiamine, MVI FEN/GI: NPO Proph DVT/GI: Lovenox, protonix Updated at bedside Critical Care Time: 60 mins The entirety of this encounter was done via telemedicine using both audio and video. Consent was unable to be obtained for the telemedicine encounter due to the patient's mental status. 02/28/25 6330 <Electronically signed by Gamal Calero MD> Cosigner Signature (if applicable): CC: STEVE Sanders~ Signed [facility] Work Phone: 1(255) 847-402908-13-2025 Consult note Author Merissa Vaughn [facility] Note Date/Time February 28, 2025 5: 53pm [facility] Medical Records Department [address] [place] [address] Pharmacokinetic/Renal -Consult 02/28/25 1316 MR#: [id number] Acct: [id number] Name: ELIS BILLS Rep #:[id number] : 1960 64 From: Merissa Vaughn PCP: Anna Sanders PA-C Status:ADM IN Y Location: ICU ICU01-1 Consult Antibiotic Management Pharmacy has been consulted to manage selected antibiotic: Vancomycin Type of Intervention Type of Consult: Follow-up Labs Labs: Sodium 129 mmol/L (133-145) L 02/28/25 03:02 Potassium 4.0 mmol/L (3.3-5.1) 02/28/25 03:02 Chloride 96 mmol/L (98-108) L 02/28/25 03:02 Carbon Dioxide 20.0 mmol/L (21.0-32.0) L 02/28/25 03:02 Anion Gap 12 (5-15) 02/28/25 03:02 BUN 18 mg/dL (4-19) 02/28/25 03:02 Creatinine 0.99 mg/dL (0.70-1.20) 02/28/25 03:02 Est GFR (MDRD) Non-Af 85 (>60) 02/28/25 03:02 BUN/Creatinine Ratio 18.1 RATIO (10-20) 02/28/25 03:02 Glucose 115 mg/dL (70-99) H 02/28/25 03:02 Vancomycin Trough 14.7 ug/mL (5.0-15.0) 02/28/25 11:15 Microbiology Microbiology: Microbiology 02/26/25 20:20 Urine, Clean Catch Urine Culture - Preliminary Culture exhibits no growth. 02/27/25 03:45 Mucosa - Nasopharyngeal Respiratory Panel (PCR) - Final Pharmacy Plan for Drug Dosing Pharmacy Plan for Drug Dosing: VANCOMYCIN LEVEL RECEIVED Current Vancomycin Dose: 1750MG Q12 Number of Doses Received: 3 Vancomycin Level: 14.7 mg/dL Hours Since Last Dose: 11 Renal Function: SCr 0.99mg/dL, CrCl 94 mL/min Renal Function Trend: improved Lab/Micro: cultures pending Vancomycin Plan/Comments: 11 hour trough is slightly subtherapeutic at 14.7mg/dL(goal 15-20). Will increase dose to 2000mg Q12 and get a trough prior to 4th dose of new regimen. Pending Level: 03/02/25 @ 0130 Pharmacy Service will continue to monitor and adjust dosing as required. 02/28/25 1317 <Electronically signed by Merissa Vaughn> Date _ Merissa Vaughn 02/28/25 1753 <Electronically signed by Maira saunders MD> Cosigner Signature (if applicable): Date Maira Yeh MD CC: ~ Signed [facility] Work Phone: 1(834) 138-459308-13-2025 Progress note [facility] Medical Records Department [address] [place] [address] Progress Note 02/28/25 1523 MR#: [id number] Acct: [id number] Name: ELIS BILLS Rep #:[id number] : 1960 64 From: Maira Yeh MD PCP: Anna Sanders PA-C Status:ADM IN Location: ICU ICU01-1 Subjective Subjective Patient seen and examined. He was transferred to the ICU overnight due to worsening shortness of breath as he was thought to have aspirated watermelon. Hewas tachcyardic and developed a fever. This morning, he remained febrile, with temperature up to 103F. HE is on 3L of oxygen. Patient is confusedand shivering at time of my review. He was confused. HE was on 5L of oxygne at time of my review, but subsequently came down to 3L. He does have a history of alcohol use disorder, and told me today that his last drink was on Russel, 3 days ago. He says he has at least 6 drinks daily. I am concernedthat patient isgoing into DTs. Critical care consulted this morning. Objective Data Objective Data Vital Signs: Vital Signs Temp Pulse Resp BP Pulse Ox O2 Del Method O2 Flow Rate 102.6 F H 70 32 H 106/76 100 Nasal Cannula 3 02/28/25 15:00 02/28/25 15:00 02/28/25 15:00 02/28/25 15:00 02/28/25 15:00 02/28/25 15:00 02/28/25 15:00 Oxygen Flow Rate (L/min) 3 Oxygen Delivery Method Nasal Cannula Weight: 272 lb 0.807 oz Body Mass Index (BMI) 40.3 Intake & Output: Intake and Output for Last 24 Hours 02/26/25 02/27/25 02/28/25 23:59 23:59 23:59 Intake Total 1000 / 1000 3850 / 3850 981.27 / 981.27 Output Total 500 / 500 Balance 1000 / 1000 3847 / 3847 481.27 / 481.27 Lab / Micro Data 02/28/25 03:02 02/28/25 03:02 Labs: Laboratory Results - last 24 hr 02/27/25 17:50: WBC 16.8 H, RBC 4.03 L, Hgb 11.8 L, Hct 36.0 L, MCV 89.3 D, MCH29.3, MCHC 32.8 D, RDW Std Deviation 46.2 H, RDW Coeff of Carlos 14.1, Plt Count 290, MPV 9.3, Immature Gran % (Auto) 1.100H, Neut % (Auto) 84.3 H, Lymph % (Auto) 5.2 L, Emanuel % (Auto) 9.2, Eos % (Auto) 0.0, Baso % (Auto) 0.2, Absolute Neuts (auto) 14.2 H, Absolute Lymphs (auto) 0.88, Nucleated RBC % 0, Differential Comment SCANNED, Platelet Estimate ADEQUATE, Sodium 131 L, Potassium 4.1, Chloride 98, Carbon Dioxide 19.8 L, Anion Gap 13, BUN 20 H, Creatinine 1.17, Estim Creat Clear Calc 80.36, Est GFR (MDRD) Non-Af 69, BUN/Creatinine Ratio 16.7, Glucose 123 H, Calcium 8.5 02/28/25 03:02: WBC 13.3 H, RBC 3.97 L, Hgb 11.7 L, Hct 34.5 L, MCV 86.9, MCH 29.5, MCHC 33.9, RDW Std Deviation 44.6 H, RDW Coeff of Carlos 14.0, Plt Count 249,MPV 9.1, Immature Gran % (Auto) 0.900, Neut % (Auto) 81.8 H, Lymph % (Auto) 7.6 L, Emanuel % (Auto) 8.8, Eos % (Auto) 0.5, Baso % (Auto) 0.4, Absolute Neuts (auto)10.9 H, Absolute Lymphs (auto) 1.01, Nucleated RBC % 0, Sodium 129 L, Potassium 4.0, Chloride 96 L, Carbon Dioxide 20.0 L, Anion Gap 12, BUN 18, Creatinine 0.99, Estim Creat Clear Calc 94.97, Est GFR (MDRD) Non-Af 85, BUN/Creatinine Ratio 18.1, Glucose 115 H, Lactic Acid 1.1, Calcium 8.1, Troponin T High Sens 48H D 02/28/25 05:04: Troponin T Hi Sens 2 Hr 52 H 02/28/25 07:13: Phosphorus 3.3, Magnesium 2.2, Troponin T Hi Sens 4Hr 41 H, NT pro BNP II 1621 H 02/28/25 11:15: Vancomycin Trough 14.7 Micro: Microbiology 02/26/25 20:20 Urine, Clean Catch Urine Culture - Preliminary Culture exhibits no growth. 02/27/25 03:45 Mucosa - Nasopharyngeal Respiratory Panel (PCR) - Final ABG Data ABG results: ABG 02/28/25 02/28/25 02/28/25 02:54 03:00 10:31 Specimen Type SERGIO ART ART Sample Site R BRACHIAL R RADIAL L Radial pH 7.44 7.48 H Bicarbonate Actual 23.6 25.5 Total CO2 25 27 Base Excess 0 2 O2 Saturation 95 97 O2 % 3.0 ABG pCO2 36.2 34.3 L ABG pO2 84 85 Ryan Test NEG Negative VBG pH 7.42 VBG pH (Temp Correct) 7.37 VBG pCO2 (Temp Corrct 30.4 VBG pO2 25 VBG HCO3 26 VBG Total CO2 27 VBG O2 Sat (Calc) 45 L VBG Base Excess 2 POC Mix VBG pCO2 Pt Tmp 40.5 L O2 Delivery Device Nasal Can Nasal Can Not entered Liter Flow 5.0 5.0 Vent Mode Not entered Clinical Comments PT TEMP 40 DEGREES C Temp correct 40.2C Radiography Diagnostic Testing: Radiology Impression Brain MRI 02/27/25 18:02 IMPRESSION: 1. No acute infarct. No mass lesion or pathologic enhancement. 2. Mild-moderate chronic small-vessel ischemic changes with scattered small fociof old lacunar infarcts in the bilateral oconnell radiata white matter. 3. Confluent T2 hyperintensity within the central michael may reflect prominent chronic gliotic change, but can be seen with pontine myelinolysis/demyelination in the appropriate clinical setting. Reading Location: [id number] Chest X-Ray 02/28/25 03:00 IMPRESSION: Persistent right medial basal airspace disease, possible pneumonia. Reading Location: [place] [address] Physical Exam Const alert Constitutional Narrative: lethargic, having chills and rigors. General Appearance: cooperative Orientation / Consciousness: confused HEENT normocephalic, head/scalp atraumatic, hearing grossly normal bilaterally and moist oral mucous membranes Eyes PERRL, EOMs intact bilaterally and conjunctivae normal Neck no lymphadenopathy, supple and no JVD Lymph Lymphatic: no lymphedema noted Resp Resp Narrative: moderately diminished breath sounds bibasally, no wheezes or crackles. On 3L of oxygen. Effort and Inspection: tachypneic and respiratory distress Cardio regular rate, regular rhythm, S1 normal heart sound, S2 normal heart sound and no murmurs GI normal to inspection, nondistended, normoactive bowel sounds, soft to palpation,non-tender and non-distended GI Narrative: Obese abdomen Extremity normal to inspection, full ROM, normal capillary refill, no clubbing, cyanosis or edema and no calftenderness General Extremity: no tenderness to palpation of joints or extremities Skin Skin Narrative: Patient has no evidence of rash or jaundice. General Skin Exam: no breakdown Neuro CN's II-XII intact bilaterally Neuro Narrative: patient restless, having tremors and shakes. episodic confusion. Sensorium / Orientation: awake Motor Exam: general weakness Psych Psych Narrative: restless, confused. Assessment & Plan Assessment/Plan (1) Aspiration pneumonia: QUALIFIERS: Aspiration pneumonia type: unspecified Laterality: right Lung location: lower lobe of lung Qualified Code(s): J69.0 - Pneumonitis due to inhalation of food and vomit (2) Acute metabolic encephalopathy: PLAN: Plan #Acute alcohol withdrawal, concerning for DTs * patient transferred to ICU overnight due to worsening respiratory status. Patient febrile, tachypneic and more confused and restless * was on 5L of oxygen but now down to 3L of oxygen. * per his nurse, he has been receiving his phenobarb q4 hourly. Will start paitent on precedex drip. * critical care consulted. * ABG done showed pH of 7.48, pCO2 of 34.3 and pO2 of 85. * adjunctive meds for symptomatic relief #Acute hypoxic respiratory failure due to aspiration pneumonia and probable heart failure with unknown EF * patient was transferred out of the ICU yesterday, but transferred back to the ICU in [facility] early hours of this morning due to worsening respiratory status. * wbc is down to 13.3 today, from 17.4 on admission. * on IV vancomycin and cefepime; metronidazole added on overnight due to aspiration * sputum cultures and blood cultures pending. * breathing treatment with bronchodilators. Titrate oxygen to maintain sats >90% * critical care consulted. * pro BNP is 1621. Initial troponin was 48, and trended down to 41. * will start diuresis with IV lasix 40mg bid. Monitor intake and output * 2D echo ordered and pending. Check D dimer also, and if elevated will check CTA chest * Hyponatremia: Sodium was 126 on admission. Sodium is up to 129 today. Likely dueto beer potomania and fluid overload. Will monitor #Nicotine dependence: Counseled to quit. Nicotine patch as needed #Benign essential hypertension: On lisinopril. IV hydralazine as needed #Hyperlipidemia: On statin #GERD: PPI #osteoarthritis: tylenol prn. DVT prophylaxis: lovenox Charges/Coding Visit Charges Inpatient E&M: 07023 Subs Hosp L3 02/28/25 5617 Maira Yeh MD Cosigner Signature (if applicable): CC: ~ Signed ADDENDUM by Dr. Maira Yeh MD on 02/28/25 at 1829 Addendum D-dimer markedly elevated at 2.78. Will therefore order a CTA of the chest statto rule out a PE 02/28/25 1829 m MD> Date _ Maira Yeh MD Cosigner Signature (if applicable): Date cc: ~* Signed [facility]08-13-2025 Consult note [facility] Medical Records Department [address] [place] [address] Consultation - Supervisor [employer] 02/28/25 1415 MR#: [id number] Acct: [id number] Name: ELIS BILLS Rep #:[id number] : 1960 64 From: Gamal Calero MD PCP: Anna Sanders PA-C Status:ADM IN Location: ICU ICU01-1 HPI Consult Data Date of Consult: 02/28/25 HPI Narrative HPI Narrative: ELIS BILLS, is a 64 M w/ asthma/COPD, EtOH abuse, HTN, morbid obesity, HLD, h/o tobacco abuse, GERD who was admitted for AMS. He apparently fell at home theday before admit and was lethargic. He had also been having some cough at home. On arrival here he was noted to have high fever >102F and with CXR concerning for PNA. He was initially admitted to floor, however overnight he had worsening agitation, tachypnea, increased O2 requirement up to 5L NC. This occurred also after he had choking on some watermelon last night. Concern for EtOH withdrawal given last drink reportedly 3-4 days ago, along with aspiration. He was started on IV phenobarbital taper along with precedex gtt and transferred to ICU. He continues to have high fever here, lethargic. Per no recent sick contacts. Hedrinks ~8-9 beers daily. No prior hospitalizations for EtOH withdrawal. ROS: Unable to obtain d/t AMS [facility] Medical History Hyperlipemia Hypertension GERD (gastroesophageal reflux disease) Home Medications ?Medication ?Instructions ?Recorded ?Last Taken ?Type atorvastatin 80 mg tablet 80 mg PO DAILY 03/22/2211/07 History clopidogrel 75 mg tablet 75 mg PO DAILY 03/22/2211/07 History lisinopril 2.5 mg tablet 2.5 mg PO DAILY 03/22/2211/07 History esomeprazole magnesium 40 mg 40 mg PO DAILY 02/26/25 U nknown History capsule,delayed release folic acid 1 mg tablet 1 mg PO DAILY 02/26/25 Unkno wn History ipratropium 0.5 mg-albuterol 3 mg 3 ml continuous nebu lization Q4H 02/26/25 Unknown History (2.5 mg base)/3 mL nebulization PRN PRN wheezing soln montelukast 10 mg tablet 10 mg PO DAILY 02/26/25 Unkn own History thiamine HCl (vitamin B1) 100 mg 100 mg PO DAILY 02/26 Unknown History tablet umeclidinium 62.5 mcg-vilanterol 1 ea inhalation DAILY 02/26/25 Unknown History 25 mcg/actuation powdr for inhalation (Anoro Ellipta) Allergy/AdvReac Type Severity Reaction Status Date / Time Penicillins (PCN) Allergy Unknown - Verified 02/28/25 10:02 WAS A BABY Social History Smoking Status: Current every day smoker tobacco type: cigarettes Objective Data Objective Data Vital Signs: Vital Signs Last response 3 Temperature 39.7 C H 02/28/25 13:00 Temperature Source Core 02/28/25 13:00 Pulse Rate 73 02/28/25 13:00 Pulse Strength Normal (2+) 02/28/25 10:00 Respiratory Rate 30 H 02/28/25 13:00 Respiratory Effort Short of Breath, Labored 02/28/25 12:00 Respiratory Depth Shallow 02/28/25 12:00 Respiratory Pattern Hyperpnea 02/28/25 12:33 Blood Pressure 109/57 L 02/28/25 13:00 Blood Pressure Mean 74 02/28/25 13:00 Blood Pressure Source Monitor 02/28/25 13:00 Blood Pressure Position Semi-Fowlers 02/28/25 13:00 Blood Pressure Location Right Arm 02/28/25 13:00 Pulse Ox 99 02/28/25 13:00 Oxygen Delivery Method Nasal Cannula 02/28/25 13:00 Oxygen Flow Rate (L/min) 3 02/28/25 13:00 I&O: I&O Last 24 Hours 3 02/27/25 02/28/25 02/28/25 23:59 11:59 23:59 Intake Total 1115 / 3850 748.87 / 881.27 132.4 / 881.27 Output Total 250 / 500 250 / 500 Balance 1115 / 3847 498.87 / 381.27 -117.6 / 381.27 I&O: Total Stay 3 02/26/25 20:48 thru 02/28/25 13:15 Intake Total 5731.27 Output Total 503 Balance 5228.27 Current Meds Ordered / Administered: Current meds ordered / Administered 3 Generic Name Dose Route Start Last Admin Trade Name Freq PRN Reason Stop Dose Admin Acetaminophen 650 mg 02/27/25 02:02 02/27/25 20:15 Acetaminophen 325 Mg Tablet PO 650 mg Q6H PRN PRN Administration Pain 1-10 or Fever Acetaminophen 650 mg 02/28/25 11:30 02/28/25 11:39 Acetaminophen 650 Mg Suppository RC 650 mg Q4H PRN PRN Administration FEVER Albuterol/Ipratropium 3 ml 02/27/25 02:02 02/28/25 03:08 Ipratropium/Albuterol Sulfate 3 Ml Ampul.Neb INHALATION 3 ml Q4H PRN PRN Administration wheezing Albuterol/Ipratropium 3 ml 02/27/25 02:30 02/28/25 12:00 Ipratropium/Albuterol Sulfate 3 Ml Ampul.Neb INHALATION 3 ml Q6HWA.RT GABBY Administration Atorvastatin Calcium 80 mg 02/27/25 22:00 02/27/25 21:51 Atorvastatin Calcium 80 Mg Tablet PO 80 mg QHS GABBY Administration Chlorhexidine Gluconate 1 each 02/28/25 10:00 02/28/25 10:59 Chlorhexidine Gluc 2% Cloth 1 Each Towelette TOPICAL 1 each DAILY GABBY Administration Clopidogrel Bisulfate 75 mg 02/27/25 10:00 02/28/25 11:53 Clopidogrel Bisulfate 75 Mg Tablet PO Not Given DAILY GABBY Dicyclomine HCl 20 mg 02/27/25 02:02 Dicyclomine 10 Mg Capsule PO Q6H PRN PRN abdominal discomfort Enoxaparin Sodium 40 mg 02/27/25 10:00 02/28/25 08:04 Enoxaparin 40 Mg/0.4 Ml Syringe SC 40 mg DAILY GABBY Administration Folic Acid 1 mg 02/27/25 08:00 02/28/25 07:50 Folic Acid 1 Mg Tablet PO Not Given BREAKFAST GABBY Gabapentin 300 mg 02/27/25 02:02 02/27/25 12:15 Gabapentin 300 Mg Capsule PO 300 mg Q8H PRN PRN Administration moderate to severe anxiety Hydroxyzine Pamoate 50 mg 02/27/25 02:02 Hydroxyzine Jodee 25 Mg Capsule PO Q4H PRN PRN mild anxiety Vancomycin IV-PHARMACY TO DOSE 500 mls @ 250 mls/hr 02/27/25 02:02 1 each/ Sodium Chloride IV X1 PRN Rx to Dose Protocol Cefepime HCl 2 gm/ Sodium 100 mls @ 200 mls/hr 02/27/25 10:00 02/28/25 13:07 Chloride IV Infused Q12 GABBY Infusion Sodium Chloride 250 mls @ 15 mls/hr 02/27/25 02:04 IV .[id number] PRN Saline Flush Sodium Chloride 250 mls @ 15 mls/hr 02/27/25 02:04 IV .[id number] PRN Additional IVPB Infusion Metronidazole 500 mg in 100 mls @ 100 mls/hr 02/28/25 02:45 02/28/25 13:42 Flagyl IV 100 mls/hr Q8 GABBY Administration Pantoprazole Sodium 40 mg/ 100 mls @ 300 mls/hr 02/28/25 10:00 02/28/25 10:17 Sodium Chloride IV Infused Q24 GABBY Infusion Dexmedetomidine HCl 400 mcg/ 100 mls @ 15.425 mls/hr 02/28/25 10:30 02/28/25 13:15 Sodium Chloride CONT INF 0.7 mcg/kg/hr .Q6H29M GABBY 21.6 mls/hr Titration Protocol 0.5 MCG/KG/HR Vancomycin HCl 2,000 mg/ 540 mls @ 250 mls/hr 02/28/25 14:00 Sodium Chloride IV Q12H GABBY Loperamide HCl 2 mg 02/27/25 02:02 Loperamide 2 Mg Capsule PO Q4H PRN PRN DIARRHEA/LOOSE STOOLS Montelukast Sodium 10 mg 02/27/25 10:00 02/28/25 07:51 Montelukast 10 Mg Tablet PO Not Given DAILY GABBY Nicotine 14 mg 02/27/25 02:02 02/28/25 08:03 Nicotine 14 Mg Patch TD 14 mg DAILY GABBY Administration Ondansetron HCl 8 mg 02/27/25 02:02 Ondansetron 8 Mg Tablet PO Q8H PRN PRN NAUSEA Phenobarbital 90 mg 02/28/25 04:00 02/28/25 11:57 Phenobarbital Sodium 130 Mg/Ml Vial IV 03/03/25 15:59 90 mg Q4H GABBY Administration Taper Sodium Chloride 10 - 40 ml 02/27/25 02:04 02/28/25 04:19 0.9% Saline Lock 10 Ml Syringe IV 10 ml UD PRN Administration SALINE FLUSH Thiamine HCl 100 mg 02/27/25 10:00 02/28/25 07:51 Thiamine Hydrochloride 100 Mg Tablet PO Not Given DAILY GABBY Trazodone HCl 100 mg 02/27/25 02:02 Trazodone 100 Mg Tablet PO QHS PRN PRN INSOMNIA Vancomycin Protocol 1 lab 03/02/25 00:30 Vancomycin Trough/Random Due MC 03/02/25 02:30 DAILY [facility] Lab / Micro Data 02/28/25 03:02 02/28/25 03:02 Labs: Laboratory Results - last 24 hr 02/27/25 17:50: WBC 16.8 H, RBC 4.03 L, Hgb 11.8 L, Hct 36.0 L, MCV 89.3 D, MCH29.3, MCHC 32.8 D, RDW Std Deviation 46.2 H, RDW Coeff of Carlos 14.1, Plt Count 290, MPV 9.3, Immature Gran % (Auto) 1.100H, Neut % (Auto) 84.3 H, Lymph % (Auto) 5.2 L, Emanuel % (Auto) 9.2, Eos % (Auto) 0.0, Baso % (Auto) 0.2, Absolute Neuts (auto) 14.2 H, Absolute Lymphs (auto) 0.88, Nucleated RBC % 0, Differential Comment SCANNED, Platelet Estimate ADEQUATE, Sodium 131 L, Potassium 4.1, Chloride 98, Carbon Dioxide 19.8 L, Anion Gap 13, BUN 20 H, Creatinine 1.17, Estim Creat Clear Calc 80.36, Est GFR (MDRD) Non-Af 69, BUN/Creatinine Ratio 16.7, Glucose 123 H, Calcium 8.5 02/28/25 03:02: WBC 13.3 H, RBC 3.97 L, Hgb 11.7 L, Hct 34.5 L, MCV 86.9, MCH 29.5, MCHC 33.9, RDW Std Deviation 44.6 H, RDW Coeff of Carlos 14.0, Plt Count 249,MPV 9.1, Immature Gran % (Auto) 0.900, Neut % (Auto) 81.8 H, Lymph % (Auto) 7.6 L, Emanuel % (Auto) 8.8, Eos % (Auto) 0.5, Baso % (Auto) 0.4, Absolute Neuts (auto)10.9 H, Absolute Lymphs (auto) 1.01, Nucleated RBC % 0, Sodium 129 L, Potassium 4.0, Chloride 96 L, Carbon Dioxide 20.0 L, Anion Gap 12, BUN 18, Creatinine 0.99, Estim Creat Clear Calc 94.97, Est GFR (MDRD) Non-Af 85, BUN/Creatinine Ratio 18.1, Glucose 115 H, Lactic Acid 1.1, Calcium 8.1, Troponin T High Sens 48H D 02/28/25 05:04: Troponin T Hi Sens 2 Hr 52 H 02/28/25 07:13: Phosphorus 3.3, Magnesium 2.2, Troponin T Hi Sens 4Hr 41 H, NT pro BNP II 1621 H 02/28/25 11:15: Vancomycin Trough 14.7 Micro: Microbiology 02/26/25 20:20 Urine, Clean Catch Urine Culture - Preliminary Culture exhibits no growth. ABG Data ABG results: ABG 02/28/25 02/28/25 02/28/25 02:54 03:00 10:31 Specimen Type SERGIO ART ART Sample Site R BRACHIAL R RADIAL L Radial pH 7.44 7.48 H Bicarbonate Actual 23.6 25.5 Total CO2 25 27 Base Excess 0 2 O2 Saturation 95 97 O2 % 3.0 ABG pCO2 36.2 34.3 L ABG pO2 84 85 Ryan Test NEG Negative VBG pH 7.42 VBG pH (Temp Correct) 7.37 VBG pCO2 (Temp Corrct 30.4 VBG pO2 25 VBG HCO3 26 VBG Total CO2 27 VBG O2 Sat (Calc) 45 L VBG Base Excess 2 POC Mix VBG pCO2 Pt Tmp 40.5 L O2 Delivery Device Nasal Can Nasal Can Not entered Liter Flow 5.0 5.0 Vent Mode Not entered Clinical Comments PT TEMP 40 DEGREES C Temp correct 40.2C Imaging Radiology Impression Brain MRI 02/27/25 18:02 IMPRESSION: 1. No acute infarct. No mass lesion or pathologic enhancement. 2. Mild-moderate chronic small-vessel ischemic changes with scattered small fociof old lacunar infarcts in the bilateral oconnell radiata white matter. 3. Confluent T2 hyperintensity within the central michael may reflect prominent chronic gliotic change, but can be seen with pontine myelinolysis/demyelination in the appropriate clinical setting. Reading Location: [id number] Chest X-Ray 02/28/25 03:00 IMPRESSION: Persistent right medial basal airspace disease, possible pneumonia. Reading [facility] Assessment and Plan . Assessment and plan: Physical Exam: Gen - NAD, morbidly obese, lethargic HEENT - MMM. Sclera anicteric Resp - Diminished in bases. Mild tachypnea CV - RRR. No m/g/r Abd - Soft, NT, ND Ext - No c/c/e. Skin - No rashes? Neuro - Drowsy on precedex. Intermittent agitation I have reviewed the pertinent vital sign, laboratory, and imaging data. ASSESSMENT: # Acute hypoxic respiratory failure # PNA - suspected aspiration # Acute encephalopathy - concern for EtOH withdrawal given heavy EtOH abuse. Last drink 02/25. CT/MRbrain without acute infarct. Likely component of metabolic/septic encephalopathy as well # h/o CVA - noted on MR brain. ?chronic gliosis vs demyelination as well # Fever # Asthma/COPD # Hyponatremia # Anemia # HTN # Obesity # GERD # h/o tobacco use PLAN: -On 3L NC, wean to keep sats ~90-92%. ABG noted. Monitor for need for intubation -Abx broadened to vanc/cefepime/flagl, add doxy as well for atypical coverage (QTc prolonged) f/u Cx, MRSA nares, urine strep/legionella. Viral panel neg but does not appear to include COVID, add this on as well -Monitor mental status. Try stopping precedex and would use PRN ativan for CIWA score instead. Contphenobarbital taper but hold for excessive sedation -If persistent fever/AMS may need to consider LP, ID consultation -Budesonide, duonebs. Low threshold for systemic steroids if worsening respiratory failure -Obtain echo, elevated BNP -Gentle IVF, monitor Na -Check ammonia, lipase. UDS negative, TSH wnl -D-dimer pending, may need VTE rule out -IV thiamine, MVI FEN/GI: NPO Proph DVT/GI: Lovenox, protonix Updated at bedside Critical Care Time: 60 mins The entirety of this encounter was done via telemedicine using both audio and video. Consent was unable to be obtained for the telemedicine encounter due to the patient's mental status. 02/28/25 1821 Cosigner Signature (if applicable): CC: STEVE Sanders~ Signed [facility]08-13-2025 Consult note [facility] Medical Records Department [address] [place] [address] Pharmacokinetic/Renal -Consult 02/28/25 1316 MR#: [id number] Acct: [id number] Name: ELIS BILLS Rep #:[id number] : 1960 64 From: Merissa Vaughn PCP: Anna Sanders PA-C Status:ADM IN Y Location: ICU ICU01-1 Consult Antibiotic Management Pharmacy has been consulted to manage selected antibiotic: Vancomycin Type of Intervention Type of Consult: Follow-up Labs Labs: Sodium 129 mmol/L (133-145) L 02/28/25 03:02 Potassium 4.0 mmol/L (3.3-5.1) 02/28/25 03:02 Chloride 96 mmol/L (98-108) L 02/28/25 03:02 Carbon Dioxide 20.0 mmol/L (21.0-32.0) L 02/28/25 03:02 Anion Gap 12 (5-15) 02/28/25 03:02 BUN 18 mg/dL (4-19) 02/28/25 03:02 Creatinine 0.99 mg/dL (0.70-1.20) 02/28/25 03:02 Est GFR (MDRD) Non-Af 85 (>60) 02/28/25 03:02 BUN/Creatinine Ratio 18.1 RATIO (10-20) 02/28/25 03:02 Glucose 115 mg/dL (70-99) H 02/28/25 03:02 Vancomycin Trough 14.7 ug/mL (5.0-15.0) 02/28/25 11:15 Microbiology Microbiology: Microbiology 02/26/25 20:20 Urine, Clean Catch Urine Culture - Preliminary Culture exhibits no growth. 02/27/25 03:45 Mucosa - Nasopharyngeal Respiratory Panel (PCR) - Final Pharmacy Plan for Drug Dosing Pharmacy Plan for Drug Dosing: VANCOMYCIN LEVEL RECEIVED Current Vancomycin Dose: 1750MG Q12 Number of Doses Received: 3 Vancomycin Level: 14.7 mg/dL Hours Since Last Dose: 11 Renal Function: SCr 0.99mg/dL, CrCl 94 mL/min Renal Function Trend: improved Lab/Micro: cultures pending Vancomycin Plan/Comments: 11 hour trough is slightly subtherapeutic at 14.7mg/dL(goal 15-20). Will increase dose to 2000mg Q12 and get a trough prior to 4th dose of new regimen. Pending Level: 03/02/25 @ 0130 Pharmacy Service will continue to monitor and adjust dosing as required. 02/28/25 1317 Date _ Merissa Vaughn 02/28/25 1753 m > Rylie Signature (if applicable): Date Maira Yeh MD CC: ~ Signed [facility]08-13-2025 Progress note Author Mechelle Guerra [facility] Note Date/Time February 28, 2025 5: 34am [facility] Medical Records Department [address] [place] [address] Progress Note - Hospitalist 02/28/257 MR#: [id number] Acct: [id number] Name: ELIS BILLS Rep #:[id number] : 1960 64 From: Mechelle Slade DO PCP: Anna Sanders PA-C Status:ADM IN Location: ICU ICU01-1 Hospitalist Note I was contacted by SPECIFICATION CONSULTANT ~2:30 AM and informed the patient spiked a temperatureup to 104.2 degrees Fahrenheit with patient hyperventilating in the ~35 breaths/min range with patient increased to 5L NC after he ate watermelon and apparently aspirated. He was started on IV metronidazole to cover anaerobes while being continued on IV vancomycin and IV cefepime. He was then moved back to ICU as he is currently requiring more care than the PCU can typically provide. He underwent ABG that revealed pH 7.43/ PCO2 36 mmHg/ PO2 67.5 mmHg/ HCO3 23.6 mmol/L @ 92% on 5L NC. His repeat CXR revealed ongoing Right medial/basilar infiltrate. He has been made strict NPO with formal Speech Therapy evaluation ordered for the AM with help appreciated in advance. [facility] Imaging Services [address] [place] [address] Chest 1 View (Portable) MR#: [id number] Acct: [id number] Name: ELIS BILLS Rep #: [id number] : 1960 M 64 From: Willy Arellano MD PCP: Anna Sanders PA-C Status: ADM IN Study: Chest 1 View (Portable) Date of Exam: 02/28/25 Exam# [id number] Ordering Dr: Mechelle Maya DO PROCEDURE: CHEST 1 VIEW (PORTABLE) 02/28/2025 REASON FOR EXAM: TACHYPNEA TECHNIQUE: Frontal view of the chest. COMPARISON: 02/26/2025 FINDINGS: Lordotic position. Normal heart size. Prominent left-sided fat pad. Persistent right medial basilar opacity possible consolidation. No effusion or pneumothorax. RAD/Chest 1 View (Portable) IMPRESSION: Persistent right medial basal airspace disease, possible pneumonia. Reading Location: [place] [address] CC: STEVE Sanders; Dr. Mechelle Maya DO ~ Litigation Attorney: Signed 02/28/25 0534 <Electronically signed by Mechelle Maya DO> Cosigner Signature (if applicable): CC: ~ [facility]igned [facility] Hospital Work Phone: 1(846) 484-219408-13-2025 Progress note [facility] Medical Records Department [address] [place] [address] Progress Note - Hospitalist 02/28/25316 MR#: [id number] Acct: [id number] Name: ELIS BILLS Rep #:[id number] : 1960 64 From: Mechelle Slade DO PCP: Anna Sanders PA-C Status:ADM IN Location: ICU ICU01-1 Hospitalist Note I was contacted by SPECIFICATION CONSULTANT ~2:30 AM and informed the patient spiked a temperatureup to 104.2 degreesFahrenheit with patient hyperventilating in the ~35 breaths/min range with patient increased to 5L NC after he ate watermelon and apparently aspirated. He was started on IV metronidazole to cover anaerobes while being continued on IV vancomycin and IV cefepime. He was then moved back to ICU as he is currently requiring more care than the PCU can typically provide. He underwent ABG that revealed pH 7.43/ PCO2 36 mmHg/ PO2 67.5 mmHg/ HCO3 23.6 mmol/L @ 92% on 5L NC. His repeat CXR revealed ongoing Right medial/basilar infiltrate. He has been made strict NPO with formal Speech Therapy evaluationordered for the AM with help appreciated in advance. [facility] Imaging Services [address] [place], [place] [id number] Chest 1 View (Portable) MR#: [id number] Acct: [id number] Name: ELIS BILLS Rep #: [id number] : 1960 M 64 From: Willy Arellano MD PCP: Anna Sanders PA-C Status: ADM IN Study: Chest 1 View (Portable) Date of Exam: 02/28/25 Exam# [id number] Ordering Dr: Mechelle Maya DO PROCEDURE: CHEST 1 VIEW (PORTABLE) 02/28/2025 REASON FOR EXAM: TACHYPNEA TECHNIQUE: Frontal view of the chest. COMPARISON: 02/26/2025 FINDINGS: Lordotic position. Normal heart size. Prominent left-sided fat pad. Persistent right medial basilaropacity possible consolidation. No effusion or pneumothorax. RAD/Chest 1 View (Portable) IMPRESSION: Persistent right medial basal airspace disease, possible pneumonia. Reading Location: [facility] CC: STEVE Sanders; Dr. Mechelle Maya DO ~ Litigation Attorney: Signed 02/28/25 0534 Cosigner Signature (if applicable): CC: ~ Signed [facility]08-13-2025 Radiology Diagnostic study note [facility] Imaging Services [address] [place] [id number] Chest 1 View (Portable) MR#: [id number] Acct: [id number] Name: ELIS BILLS Rep #: [id number] : 1960 M 64 From: Kate Arellano MD PCP: Anna Sanders PA-C Status: ADM IN Study:Chest 1 View (Portable) Date of Exam: 02/28/25 Exam# [id number] Ordering Dr: Mechelle Ramirez DO PROCEDURE: CHEST 1 VIEW (PORTABLE) 02/28/2025 REASON FOR EXAM: TACHYPNEA TECHNIQUE: Frontal view of the chest. COMPARISON: 02/26/2025 FINDINGS: Lordotic position. Normal heart size. Prominent left-sided fat pad. Persistent right medial basilaropacity possible consolidation. No effusion or pneumothorax. RAD/Chest 1 View (Portable) IMPRESSION: Persistent right medial basal airspace disease, possible pneumonia. Reading Location: [facility] CC: STEVE Sanders; Dr. Mechelle Maya DO ~ Litigation Attorney: Signed [facility]08-12-2025 Progress note Author Maira Yeh [facility] Note Date/Time February 27, 2025 4: 21pm [facility] Medical Records Department [address] [place] [address] Progress Note 02/27/25 1602 MR#: [id number] Acct: [id number] Name: ELIS BILLS Rep #:[id number] : 1960 64 From: Maira Yeh MD PCP: Anna Sanders PA-C Status:ADM IN Location: [place] [address] Subjective Subjective Patient seen and examined. He was admitted with a complaint of altered mental status as well as fever and cough. Chest CT done on admission showed right lower lobe pneumonia and labs also showed hyponatremia. He has no active complaints. He denied any fever, chills, cough, chest pain, palpitations, dizziness, nausea, vomiting or any other symptoms. Review of systems is otherwise negative. Objective Data Objective Data Vital Signs: Vital Signs Temp Pulse Resp BP Pulse Ox O2 Del Method O2 Flow Rate 100.6 F H 89 24 H 140/62 H 98 Room Air 2 02/27/25 14:00 02/27/25 14:00 02/27/25 14:00 02/27/25 14:00 02/27/25 14:00 02/27/25 14:42 02/27/25 07:00 Oxygen Flow Rate (L/min) 2 Oxygen Delivery Method Room Air Weight: 263 lb 10.766 oz Body Mass Index (BMI) 39.0 Intake & Output: Intake and Output for Last 24 Hours 02/25/25 02/26/25 02/27/25 23:59 23:59 23:59 Intake Total 1000 / 1000 3270 / 3270 Output Total 3 / 3 Balance 1000 / 1000 3267 / 3267 Lab / Micro Data 02/26/25 20:55 02/26/25 20:55 Labs: Laboratory Results - last 24 hr 02/26/25 20:20: Urine Color Yellow, Urine Clarity Clear, Urine pH 6.0, Ur Specific [place] 1.020, Urine Protein 100 H, Urine Glucose (UA) Normal, Urine Ketones 5 H, Urine Occult Blood 150 H, Urine Nitrite Negative, Urine Bilirubin Negative, Urine Urobilinogen Normal, Ur Leukocyte Esterase Negative, Urine RBC 0-5 SEEN, Urine WBC 0-5 SEEN, Ur Squamous Epith Cells 0-5 SEEN, Ur Renal Epithelial Cell 0-5 SEEN, Urine Bacteria 3+, Hyaline Casts 5-10 SEEN, Fine Granular Casts 10-25 SEEN, Urine Mucus 0 SEEN 02/26/25 20:55: WBC 17.4 H, RBC 4.39 L, Hgb 13.1, Hct 37.2 L, MCV 84.7, MCH 29.8, MCHC 35.2, RDW Std Deviation 42.0, RDW Coeff of Carlos 13.4, Plt Count 315, MPV 9.5, Immature Gran % (Auto) 0.700, Neut % (Auto) 87.3 H, Lymph % (Auto) 3.9 L, Emanuel % (Auto) 7.3, Eos % (Auto) 0.3, Baso % (Auto) 0.5, Absolute Neuts (auto)15.2 H, Absolute Lymphs (auto) 0.68 L, Nucleated RBC % 0, PT 15.3 H, INR 1.2, APTT 34.5, Sodium 126 L, Potassium 4.0, Chloride 90 L, Carbon Dioxide 18.9 L, Anion Gap 18 H, BUN 16, Creatinine 1.19, Estim Creat Clear Calc 78.80, Est GFR (MDRD) Non-Af 68, BUN/Creatinine Ratio 13.5, Glucose 111 H, Lactic Acid < 1.0, Calcium 9.3, Total Bilirubin 0.88, AST 42 H, ALT 18, Alkaline Phosphatase 110, Troponin T High Sens 53 H, Total Protein 7.9, Albumin 4.1, Globulin 3.8, Albumin/Globulin Ratio 1.1 02/26/25 23:12: Troponin T Hi Sens 2 Hr 49 H 02/27/25 00:39: Serum Folate 30.40, Urine Osmolality 628, Urine Opiates Screen NEGATIVE, U Buprenorphine Qual NEGATIVE, Ur Oxycodone Screen NEGATIVE, Urine Methadone Screen NEGATIVE, Urine Fentanyl Screen NEGATIVE, Ur Barbiturates Screen NEGATIVE, Ur Phencyclidine Scrn NEGATIVE, Ur Amphetamines Screen NEGATIVE, U Benzodiazepines Scrn NEGATIVE, Urine Cocaine Screen NEGATIVE, U Cannabinoids Screen NEGATIVE, Ethyl Alcohol < 10.1 02/27/25 01:10: Troponin T Hi Sens 4Hr 45 H 02/27/25 03:15: Hemoglobin A1c 5.5, Serum Osmolality 288, Triglycerides 59 02/27/25 03:15: Triglycerides Cancelled, Cholesterol 88 02/27/25 03:15: Cholesterol Cancelled, LDL Cholesterol, Calc 32 02/27/25 03:15: LDL Cholesterol, Calc Cancelled, VLDL Cholesterol 12 02/27/25 03:15: VLDL Cholesterol Cancelled, HDL Cholesterol 45 02/27/25 03:15: HDL Cholesterol Cancelled, Cholesterol/HDL Ratio 1.95 02/27/25 03:15: Cholesterol/HDL Ratio Cancelled, Vitamin B12 229, TSH 1.110 Micro: Microbiology 02/27/25 03:45 Mucosa - Nasopharyngeal Respiratory Panel (PCR) - Final ABG Data ABG results: ABG 02/26/25 22:22 Specimen Type SERGIO Sample Site Not entered O2 % 4.0 VBG pH 7.47 H VBG pO2 68 H VBG HCO3 24 VBG Total CO2 25 VBG O2 Sat (Calc) 95 H VBG Base Excess 0 POC Mix VBG pCO2 Pt Tmp 32.9 L O2 Delivery Device Not entered Radiography Diagnostic Testing: Radiology Impression Brain CT 02/26/25 21:30 IMPRESSION: 1. Small vessel ischemic/degenerative changes. 2. No acute intracranial hemorrhage, midline shift or mass effect. If symptoms persist, further evaluation with MRI is recommended. Reading Location: [facility] Cervical Spine CT 02/26/25 21:30 IMPRESSION: No acute fracture. Reading Location: [facility] Knee X-Ray 02/26/25 21:45 IMPRESSION: Degenerative changes as above. Reading Location: [facility] Chest X-Ray 02/26/25 21:47 IMPRESSION: Cardiomegaly with mild congestion. Reading Location: [facility] Abdomen/Pelvis CT 02/27/25 01:35 IMPRESSION: No acute abdominopelvic findings. Refer to chest CT report for additional detail. Reading Location: [facility] 02/27/25 01:35 IMPRESSION: Right lower lobe pneumonia. Reading Location: [facility] Physical Exam Const alert and oriented x3 Constitutional Narrative: flat affect HEENT normocephalic, head/scalp atraumatic and moist oral mucous membranes Eyes EOMs intact bilaterally Neck supple and no JVD Lymph Lymphatic: no lymphedema noted Resp Resp Narrative: moderately diminished breath sounds bibasally, no wheezes or crackles. On room air. Cardio regular rate, regular rhythm, S1 normal heart sound, S2 normal heart sound and no murmurs GI normal to inspection, nondistended, normoactive bowel sounds, soft to palpation and non-tender Extremity normal capillary refill, no clubbing, cyanosis or edema and no calf tenderness General Extremity: no tenderness to palpation of joints or extremities Skin General Skin Exam: no breakdown Neuro no focal motor deficits Motor Exam: general weakness Psych cooperative and affect normal Mood & Affect: flat affect Assessment & Plan Assessment/Plan (1) Aspiration pneumonia: QUALIFIERS: Aspiration pneumonia type: unspecified Laterality: right Lung location: lower lobe of lung Qualified Code(s): J69.0 - Pneumonitis due to inhalation of food and vomit (2) Acute metabolic encephalopathy: PLAN: Plan #Right lower lobe pneumonia, concerning for aspiration * leucocytosis is resolving. * on IV vancomycin and cefepime * sputum cultures and blood cultures pending. * breathing treatment with bronchodilators. Titrate oxyten to maintain sats >90% * Hyponatremia: Sodium was 126 on admission. Concern is to be 8 to 10 minutes likely compounding this also. Diuresing with IV fluids #History of alcohol use disorder * No clear evidence of withdrawal. However patient started on phenobarbital withdrawal taper on admission. Adjunctive meds for symptomatic relief. #Nicotine dependence: Counseled to quit. Nicotine patch as needed #Benign essential hypertension: On lisinopril. IV hydralazine as needed #Hyperlipidemia: On statin #GERD: PPI #osteoarthritis: tylenol prn. DVT prophylaxis: lovenox\ Disposition: Transfer out of ICU to PCU. Charges/Coding Visit Charges Inpatient E&M: 26643 Subs Hosp L2 02/27/25 1621 <Electronically signed by Maira Yeh MD> Maira Yeh MD Cosigner Signature (if applicable): CC: ~ Signed [facility] Work Phone: [phone]) 888-825108-12-2025 Progress note [facility] Medical Records Department [address] [place] [address] Progress Note 02/27/25 1602 MR#: [id number] Acct: [id number] Name: ELIS BILLS Rep #:[id number] : 1960 64 From: Maira Yeh MD PCP: Anna Sanders PA-C Status:ADM IN Location: [place] [address] Subjective Subjective Patient seen and examined. He was admitted with a complaint of altered mental status as well as fever and cough. Chest CT done on admission showed right lower lobe pneumonia and labs also showed hyponatremia. He has no active complaints. He denied any fever, chills, cough, chest pain, palpitations,dizziness, nausea, vomiting or any other symptoms. Review of systems is otherwise negative. Objective Data Objective Data Vital Signs: Vital Signs Temp Pulse Resp BP Pulse Ox O2 Del Method O2 Flow Rate 100.6 F H 89 24 H 140/62 H 98 Room Air 2 02/27/25 14:00 02/27/25 14:00 02/27/25 14:00 02/27/25 14:00 02/27/25 14:00 02/27/25 14:42 02/27/25 07:00 Oxygen Flow Rate (L/min) 2 Oxygen Delivery Method Room Air Weight: 263 lb 10.766 oz Body Mass Index (BMI) 39.0 Intake & Output: Intake and Output for Last 24 Hours 02/25/25 02/26/25 02/27/25 23:59 23:59 23:59 Intake Total 1000 / 1000 3270 / 3270 Output Total 3 / 3 Balance 1000 / 1000 3267 / 3267 Lab / Micro Data 02/26/25 20:55 02/26/25 20:55 Labs: Laboratory Results - last 24 hr 02/26/25 20:20: Urine Color Yellow, Urine Clarity Clear, Urine pH 6.0, Ur Specific [place] 1.020, Urine Protein 100 H, Urine Glucose (UA) Normal, Urine Ketones 5 H, Urine Occult Blood 150 H, Urine Nitrite Negative, Urine Bilirubin Negative, Urine Urobilinogen Normal, Ur Leukocyte Esterase Negative,Urine RBC 0- 5 SEEN, Urine WBC 0-5 SEEN, Ur Squamous Epith Cells 0-5 SEEN, Ur Renal Epithelial Cell 0-5 SEEN, Urine Bacteria 3+, Hyaline Casts 5-10 SEEN, Fine Granular Casts 10-25 SEEN, Urine Mucus 0 SEEN 02/26/25 20:55: WBC 17.4 H, RBC 4.39 L, Hgb 13.1, Hct 37.2 L, MCV 84.7, MCH 29.8, MCHC 35.2, RDW Std Deviation 42.0, RDW Coeff of Carlos 13.4, Plt Count 315, MPV 9.5, Immature Gran % (Auto) 0.700, Neut % (Auto) 87.3 H, Lymph % (Auto) 3.9 L, Emanuel % (Auto) 7.3, Eos % (Auto) 0.3, Baso % (Auto) 0.5, Absolute Neuts (auto)15.2 H, Absolute Lymphs (auto) 0.68 L, Nucleated RBC % 0, PT 15.3 H, INR 1.2, APTT 34.5, Sodium 126 L, Potassium 4.0, Chloride 90 L, Carbon Dioxide 18.9 L, Anion Gap 18 H, BUN 16, Creatinine 1.19, Estim Creat Clear Calc 78.80, Est GFR (MDRD) Non-Af 68, BUN/Creatinine Ratio 13.5, Glucose 111 H, Lactic Acid < 1.0, Calcium 9.3, Total Bilirubin 0.88, AST 42 H, ALT 18, Alkaline Phosphatase 110, Troponin T High Sens 53 H, Total Protein 7.9, Albumin 4.1, Globulin 3.8, Albumin/Globulin Ratio 1.1 02/26/25 23:12: Troponin T Hi Sens 2 Hr 49 H 02/27/25 00:39: Serum Folate 30.40, Urine Osmolality 628, Urine Opiates Screen NEGATIVE, U Buprenorphine Qual NEGATIVE, Ur Oxycodone Screen NEGATIVE, Urine Methadone Screen NEGATIVE, Urine Fentanyl Screen NEGATIVE, Ur Barbiturates Screen NEGATIVE, Ur Phencyclidine Scrn NEGATIVE, Ur Amphetamines Screen NEGATIVE, U Benzodiazepines Scrn NEGATIVE, Urine Cocaine Screen NEGATIVE, U Cannabinoids Screen NEGATIVE, Ethyl Alcohol < 10.1 02/27/25 01:10: Troponin T Hi Sens 4Hr 45 H 02/27/25 03:15: Hemoglobin A1c 5.5, Serum Osmolality 288, Triglycerides 59 02/27/25 03:15: Triglycerides Cancelled, Cholesterol 88 02/27/25 03:15: Cholesterol Cancelled, LDL Cholesterol, Calc 32 02/27/25 03:15: LDL Cholesterol, Calc Cancelled, VLDL Cholesterol 12 02/27/25 03:15: VLDL Cholesterol Cancelled, HDL Cholesterol 45 02/27/25 03:15: HDL Cholesterol Cancelled, Cholesterol/HDL Ratio 1.95 02/27/25 03:15: Cholesterol/HDL Ratio Cancelled, Vitamin B12 229, TSH 1.110 Micro: Microbiology 02/27/25 03:45 Mucosa - Nasopharyngeal Respiratory Panel (PCR) - Final ABG Data ABG results: ABG 02/26/25 22:22 Specimen Type SERGIO Sample Site Not entered O2 % 4.0 VBG pH 7.47 H VBG pO2 68 H VBG HCO3 24 VBG Total CO2 25 VBG O2 Sat (Calc) 95 H VBG Base Excess 0 POC Mix VBG pCO2 Pt Tmp 32.9 L O2 Delivery Device Not entered Radiography Diagnostic Testing: Radiology Impression Brain CT 02/26/25 21:30 IMPRESSION: 1. Small vessel ischemic/degenerative changes. 2. No acute intracranial hemorrhage, midline shift or mass effect. If symptoms persist, further evaluation with MRI is recommended. Reading Location: [facility] Cervical Spine CT 02/26/25 21:30 IMPRESSION: No acute fracture. Reading Location: [facility] Knee X-Ray 02/26/25 21:45 IMPRESSION: Degenerative changes as above. Reading Location: [facility] Chest X-Ray 02/26/25 21:47 IMPRESSION: Cardiomegaly with mild congestion. Reading Location: [facility] Abdomen/Pelvis CT 02/27/25 01:35 IMPRESSION: No acute abdominopelvic findings. Refer to chest CT report for additional detail. Reading Location: [place] [address] 02/27/25 01:35 IMPRESSION: Right lower lobe pneumonia. Reading Location: [place] [address] Physical Exam Const alert and oriented x3 Constitutional Narrative: flat affect HEENT normocephalic, head/scalp atraumatic and moist oral mucous membranes Eyes EOMs intact bilaterally Neck supple and no JVD Lymph Lymphatic: no lymphedema noted Resp Resp Narrative: moderately diminished breath sounds bibasally, no wheezes or crackles. On room air. Cardio regular rate, regular rhythm, S1 normal heart sound, S2 normal heart sound and no murmurs GI normal to inspection, nondistended, normoactive bowel sounds, soft to palpation and non-tender Extremity normal capillary refill, no clubbing, cyanosis or edema and no calf tenderness General Extremity: no tenderness to palpation of joints or extremities Skin General Skin Exam: no breakdown Neuro no focal motor deficits Motor Exam: general weakness Psych cooperative and affect normal Mood & Affect: flat affect Assessment & Plan Assessment/Plan (1) Aspiration pneumonia: QUALIFIERS: Aspiration pneumonia type: unspecified Laterality: right Lung location: lower lobe of lung Qualified Code(s): J69.0 - Pneumonitis due to inhalation of food and vomit (2) Acute metabolic encephalopathy: PLAN: Plan #Right lower lobe pneumonia, concerning for aspiration * leucocytosis is resolving. * on IV vancomycin and cefepime * sputum cultures and blood cultures pending. * breathing treatment with bronchodilators. Titrate oxyten to maintain sats >90% * Hyponatremia: Sodium was 126 on admission. Concern is to be 8 to 10 minutes likely compounding thisalso. Diuresing with IV fluids #History of alcohol use disorder * No clear evidence of withdrawal. However patient started on phenobarbital withdrawal taper on admission. Adjunctive meds for symptomatic relief. #Nicotine dependence: Counseled to quit. Nicotine patch as needed #Benign essential hypertension: On lisinopril. IV hydralazine as needed #Hyperlipidemia: On statin #GERD: PPI #osteoarthritis: tylenol prn. DVT prophylaxis: lovenox\ Disposition: Transfer out of ICU to PCU. Charges/Coding Visit Charges Inpatient E&M: 89838 Subs Hosp L2 02/27/25 1621 Maira Yeh MD Cosigner Signature (if applicable): CC: ~ Signed [facility]08-12-2025 Radiology Diagnostic study note [facility] Imaging Services [address] [place], [place] [id number] Chest without Contrast MR#: [id number] Acct: [id number] Name: ELIS BILLS Rep #: [id number] : 1960 M 64 From: Kate Arellano MD PCP: Anna Sanders PA-C Status: ADM IN Study:Chest without Contrast Date of Exam: 02/27/25 Exam# [id number] Ordering Dr: Rubina Perez DO PROCEDURE: CHEST WITHOUT CONTRAST 02/27/2025 REASON FOR EXAM: FEVER TECHNIQUE: Chest CT without contrast. Coronal and Sagittal reconstruction series were provided. One or more dose reduction techniques were used (e.g., Automated exposure control, adjustment of the mA and/or kV according to patient size, use of iterative reconstruction technique RADIATION DOSE SUMMARY: CTDlvol: 20 mGy DLP: 721 mGycm COMPARISON: Chest x-ray 02/26/2025 FINDINGS: Unremarkable base of neck and axilla. Normal esophagus. Upper limits of normalheart size. No acute vascular pathology on noncontrast scanning. Mediastinal and right hilar adenopathy, likely reactive. Thoracic spine degeneration. Mild scoliosis. No acute chest wall findings. Noacute upper abdominal findings. Central airways are patent. There is right lower lobe consolidative airspace disease. There is under aeration at the left base. CT/Chest without Contrast IMPRESSION: Right lower lobe pneumonia. Reading Location: [place] [address] CC: STEVE Sanders; Dr. Austin Perez DO ~ Litigation Attorney: Signed [facility]08-12-2025 History and physical note Author Mechelle Guerra [facility] Note Date/Time February 27, 2025 6: 46am [facility] Medical Records Department [address] [place] [address] H&P Exam - Hospitalist 02/27/25 0001 MR#: [id number] Acct: [id number] Name: ELIS BILLS Rep #:[id number] : 1960 64 From: Mechelle Slade DO PCP: Anna Sanders PA-C Status:ADM IN Location: ICU ICU01-1 [facility] Date of Admission: 02/27/25 Date of Service: 02/27/25 Chief Complaint: AMS. HPI Narrative ELIS BILLS, is a 64 M with a past medical history of essential hypertension;on lisinopril, hyperlipidemia; on atorvastatin, obesity; with BMI of 38.7 this admission, history of tobacco abuse; with subsequent asthma/COPD on umeclidinium-vilanterol, ipratropium-albuterol q. 4 hours prn plus montelukast, history of EtOH abuse; with patient admitted to drinking ~8-9 beers daily on folate and thiamine supplementation, GERD; on esomeprazole and OA; with spinal stenosis of the lumbar region (without claudication) who presents to [facility] ER complaining of altered mental status. Mr. Bills is not a fully-reliable historian at this time so information was gathered from chart, medical staff and computer. According to the records his states that he had a fall yesterday evening and that he was not acting normally on the evening of February 26, 2025. She informed the ER physician that she was getting ready for work when he began complaining of pain in his knee and they both agreed he should try to sleep in the recliner. She then noted when she was getting ready to leave he was very confused so she activated EMS to have him brought in for further evaluation and treatment. He complains of fever and cough but is confused with no complaints of lightheadedness, visual changes, abdominal pain, nausea, vomiting, diarrhea, constipation, chest pain, palpitations, heart racing, dysuria, hematuria or rash. In the ER he was noted to have a Fever of 102.7 degrees Fahrenheit with Leukocytosis of 17.4K present on admission consistent with CT scan of the chest revealing RLL Pneumonia; likely due to aspiration complicated by Hyponatremia of 126 mmol/L present on admission suspected to be due to Beer Potomania with a UA negative for acute infection andhead CT without contrast that revealed small vessel degenerative changes with noacute ICH, midline shift or mass effect with MRI recommended CT of the cervical spine without contrast that revealed no acute fracture, along with a CXR that revealed cardiomegaly with mild congestion and X-rays of the Left knee that revealed severe 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 He was then admitted tot ICU for ongoing care for a stay that is expected to extend beyond 2 midnights. [facility] Medical History Hyperlipemia Hypertension GERD (gastroesophageal reflux disease) Home Medications ?Medication ?Instructions ?Recorded ?Last Taken ?Type atorvastatin 80 mg tablet 80 mg PO DAILY 03/22/2211/07 History clopidogrel 75 mg tablet 75 mg PO DAILY 03/22/2211/07 History lisinopril 2.5 mg tablet 2.5 mg PO DAILY 03/22/2211/07 History esomeprazole magnesium 40 mg 40 mg PO DAILY 02/26/25 U nknown History capsule,delayed release folic acid 1 mg tablet 1 mg PO DAILY 02/26/25 Unkno wn History ipratropium 0.5 mg-albuterol 3 mg 3 ml continuous nebu lization Q4H 02/26/25 Unknown History (2.5 mg base)/3 mL nebulization PRN PRN wheezing soln montelukast 10 mg tablet 10 mg PO DAILY 02/26/25 Unkn own History thiamine HCl (vitamin B1) 100 mg 100 mg PO DAILY 02/26 Unknown History tablet umeclidinium 62.5 mcg-vilanterol 1 ea inhalation DAILY 02/26/25 Unknown History 25 mcg/actuation powdr for inhalation (Anoro Ellipta) Allergy/AdvReac Type Severity Reaction Status Date / Time Penicillins (PCN) Allergy Unknown - Verified 02/26/25 20:54 WAS A BABY Social History Smoking Status: Current every day smoker tobacco type: cigarettes ROS ROS Narrative ROS was limited by patient confusion and was completed as much as possible in HPI. Vital Signs Vital Signs Vital Signs: 02/26/25 20:50 02/26/25 20:54 02/26/25 20:59 Temperature 102.7 F H 102.7 F H Temperature Source Oral Oral Pulse Rate 106 H 99 Respiratory Rate 28 H 46 H Respiratory Effort Short of Breath Labored Respiratory Depth Shallow Respiratory Pattern Tachypnea Blood Pressure 154/75 H 142/66 H Blood Pressure Mean 101 91 Pulse Ox 94 96 Oxygen Delivery Method Room Air Room Air Room Air 02/26/25 21:01 02/26/25 21:54 02/26/25 22:00 Temperature 100.2 F H 100.2 F H Temperature Source Oral Oral Pulse Rate 94 91 Respiratory Rate 28 H 27 H Respiratory Effort Respiratory Depth Respiratory Pattern Blood Pressure 139/70 H 139/70 H Blood Pressure Mean 93 93 Pulse Ox 97 94 94 Oxygen Delivery Method Room Air Room Air Room Air 02/26/25 22:59 Temperature 99.2 F H Temperature Source Oral Pulse Rate 83 Respiratory Rate 33 H Respiratory Effort Respiratory Depth Respiratory Pattern Blood Pressure 138/74 H Blood Pressure Mean 95 Pulse Ox 100 Oxygen Delivery Method Room Air Weight Weight: 262 lb 5.601 oz Body Mass Index (BMI) 38.7 Physical Exam Const alert and no apparent distress Constitutional Narrative: Obese patient with confusion and nontoxic appearance. General Appearance: cooperative Orientation / Consciousness: confused HEENT normocephalic, head/scalp atraumatic, hearing grossly normal bilaterally and moist oral mucous membranes Eyes PERRL, EOMs intact bilaterally and conjunctivae normal Neck no lymphadenopathy, supple and no JVD Resp normal respiratory effort, no retractions and no use of accessory muscles Resp Narrative: Diminished breath sounds over RLL. Cardio regular rate and regular rhythm GI normal to inspection, nondistended, normoactive bowel sounds, soft to palpation,non-tender and non-distended GI Narrative: Obese. Extremity normal to inspection, full ROM and no clubbing, cyanosis or edema Skin Skin Narrative: Patient has no evidence of rash or jaundice. Neuro CN's II-XII intact bilaterally, moves all extremities and no focal motor deficits Sensorium / Orientation: awake, alert, oriented to person and oriented to place Speech: speech normal Psych affect normal Results Medical Records Data Attestation: I reviewed the patient's medical records Lab / Micro Data Attestation: I reviewed the patient's lab results. 02/26/25 20:55 02/26/25 20:55 Labs: Laboratory Results - last 24 hr 02/26/25 20:20: Urine Color Yellow, Urine Clarity Clear, Urine pH 6.0, Ur Specific [place] 1.020, Urine Protein 100 H, Urine Glucose (UA) Normal, Urine Ketones 5 H, Urine Occult Blood 150 H, Urine Nitrite Negative, Urine Bilirubin Negative, Urine Urobilinogen Normal, Ur Leukocyte Esterase Negative, Urine RBC 0-5 SEEN, Urine WBC 0-5 SEEN, Ur Squamous Epith Cells 0-5 SEEN, Ur Renal Epithelial Cell 0-5 SEEN, Urine Bacteria 3+, Hyaline Casts 5-10 SEEN, Fine Granular Casts 10-25 SEEN, Urine Mucus 0 SEEN 02/26/25 20:55: WBC 17.4 H, RBC 4.39 L, Hgb 13.1, Hct 37.2 L, MCV 84.7, MCH 29.8, MCHC 35.2, RDW Std Deviation 42.0, RDW Coeff of Carlos 13.4, Plt Count 315, MPV 9.5, Immature Gran % (Auto) 0.700, Neut % (Auto) 87.3 H, Lymph % (Auto) 3.9 L, Emanuel % (Auto) 7.3, Eos % (Auto) 0.3, Baso % (Auto) 0.5, Absolute Neuts (auto)15.2 H, Absolute Lymphs (auto) 0.68 L, Nucleated RBC % 0, PT 15.3 H, INR 1.2, APTT 34.5, Sodium 126 L, Potassium 4.0, Chloride 90 L, Carbon Dioxide 18.9 L, Anion Gap 18 H, BUN 16, Creatinine 1.19, Estim Creat Clear Calc 78.80, Est GFR (MDRD) Non-Af 68, BUN/Creatinine Ratio 13.5, Glucose 111 H, Lactic Acid < 1.0, Calcium 9.3, Total Bilirubin 0.88, AST 42 H, ALT 18, Alkaline Phosphatase 110, Troponin T High Sens 53 H, Total Protein 7.9, Albumin 4.1, Globulin 3.8, Albumin/Globulin Ratio 1.1 02/26/25 23:12: Troponin T Hi Sens 2 Hr 49 H ABG Data ABG results: ABG 02/26/25 22:22 Specimen Type SERGIO Sample Site Not entered O2 % 4.0 VBG pH 7.47 H VBG pO2 68 H VBG HCO3 24 VBG Total CO2 25 VBG O2 Sat (Calc) 95 H VBG Base Excess 0 POC Mix VBG pCO2 Pt Tmp 32.9 L O2 Delivery Device Not entered Imaging Radiology Impression Brain CT 02/26/25 21:30 IMPRESSION: 1. Small vessel ischemic/degenerative changes. 2. No acute intracranial hemorrhage, midline shift or mass effect. If symptoms persist, further evaluation with MRI is recommended. Reading Location: [facility] Cervical Spine CT 02/26/25 21:30 IMPRESSION: No acute fracture. Reading Location: [facility] Knee X-Ray 02/26/25 21:45 IMPRESSION: Degenerative changes as above. Reading Location: [facility] Chest X-Ray 02/26/25 21:47 IMPRESSION: Cardiomegaly with mild congestion. Reading Location: [facility] Imaging Services [address] [place] [address] Chest without Contrast MR#: [id number] Acct: [id number] Name: ELIS BILLS Tim Rep #: [id number] : 1960 M 64 From: Willy Arellano MD PCP: Anna Sanders PA-C Status: ADM IN Study: Chest without Contrast Date of Exam: 02/27/25 Exam# [id number] Ordering Dr: Austin Perez DO PROCEDURE: CHEST WITHOUT CONTRAST 02/27/2025 REASON FOR EXAM: FEVER TECHNIQUE: Chest CT without contrast. Coronal and Sagittal reconstruction series were provided. One or more dose reduction techniques were used (e.g., Automated exposure control, adjustment of the mA and/or kV according to patient size, use of iterative reconstruction technique RADIATION DOSE SUMMARY: CTDlvol: 20 mGy DLP: 721 mGycm COMPARISON: Chest x-ray 02/26/2025 FINDINGS: Unremarkable base of neck and axilla. Normal esophagus. Upper limits of normalheart size. No acute vascular pathology on noncontrast scanning. Mediastinal and right hilar adenopathy, likely reactive. Thoracic spine degeneration. Mild scoliosis. No acute chest wall findings. Noacute upper abdominal findings. Central airways are patent. There is right lower lobe consolidative airspace disease. There is under aeration at the left base. CT/Chest without Contrast IMPRESSION: Right lower lobe pneumonia. Reading Location: [place] [address] CC: STEVE Sanders; Dr. Austin Perez, DO ~ Litigation Attorney: Signed Assessment & Plan Assessment/Plan (1) Sepsis: QUALIFIERS: Sepsis acute organ dysfunction status: with acute organ dysfunction Sepsis type: sepsis due to unspecified organism Severe sepsis acute organ dysfunction type: encephalopathy Severe sepsis shock status:without septic shock Qualified Code(s): A41.9 - Sepsis, unspecified organism; R65.20 - Severe sepsis without septic shock; G93.41 - Metabolic encephalopathy (2) Aspiration pneumonia: QUALIFIERS: Aspiration pneumonia type: unspecified Laterality: right Lung location: lower lobe of lung Qualified Code(s): J69.0 - Pneumonitis due to inhalation of food and vomit (3) Fever: QUALIFIERS: Fever type: unspecified Qualified Code(s): R50.9 - Fever, unspecified (4) Leukocytosis: QUALIFIERS: Leukocytosis type: unspecified Qualified Code(s): D72.829 - Elevated white blood cell count, unspecified (5) Hyponatremia: (6) Acute metabolic encephalopathy: (7) Alcohol abuse: (8) Tobacco abuse: (9) Obesity (BMI 30-39.9): PLAN: Plan 1. Fever of 102.7 degrees Fahrenheit with Leukocytosis of 17.4K present on admission consistent with CT of chest positive for RLL Pneumonia likely due to Aspiration with possible Sepsis - Admit to ICU. We will continue IV cefepime and IV vancomycin begun in ER and treat according to Sepsis protocol on aspiration precautions. Give ondansetron prn for nausea/vomiting. Give acetaminophen prn for pain or fever. 2. Hyponatremia of 126 mmol/L present on admission suspected to be due to Beer Potomania complicating #1 - Give NS IVF. Urine specific gravity in normal rangeat 1.02 on admission. Check urine and serum osmolality. Recheck CMP in AM to follow trend. 3. Acute Metabolic Encephalopathy in the setting of known Chronic EtOH Abuse compounding #1 & #2 - We will minimize TECHNICAL LEAD-active medications in an effort to allow sensorium to clear. JAMI and UDS pending. EtOH Cessation will be stronglyencouraged with patient started on phenobarbital taper to prevent impending EtOHwithdrawal. 4. History of tobacco abuse; with subsequent asthma/COPD on umeclidinium- vilanterol, ipratropium-albuterol q. 4 hours prn plus montelukast adding to the medical complexity of #1 - #3 - Stable with no evidence of acute flare at this time. Continue scheduled and prn nebulizers/inhalers. Tobacco Cessation will be strongly encouraged with Nicotine patch offered to control cravings. 5. Obesity (class II); with BMI of 38.7 this admission adding to the burden of disease outlined from #1 - #4 - Weight loss will be recommended. Check TSH. This complicates his case and may hamper recovery. 6. Essential hypertension; on lisinopril - Hold scheduled antihypertensives in light of #1. 7. Hyperlipidemia; on atorvastatin - Resume statin and check Lipid Profile. 8. GERD; on esomeprazole - Maintain PPI as previous. 9. OA; with spinal stenosis of the lumbar region (without claudication) and severe DJD of the Left knee noted on admission X-rays - Give acetaminophen prn as outlined in #1. 10. DVT prophylaxis - Enoxaparin 40 mg sq daily plus SCD's. Total time: Approximately (but not less than) 75 minutes. Sepsis Attestation Sepsis Alert: Yes Sepsis Attestation: Sepsis Ruled Out Date exam was performed: 02/27/25 Time exam was performed: 12:45 Possible Source of Sepsis: Pulmonary Sepsis Organ Dysfunction Criteria Present: New/Unexplained change in mental status Supportive Findings: CT chest positive for RLL Pneumonia likely due to Aspiration with Fever of 102.7degrees Fahrenheit, Leukocytosis of 17.4K and Altered Mental Status all present on admission. Fluid Resuscitation Fluid resuscitation indicated?: Yes Fluid Resuscitation ordered: 30 ml/kg fluid bolus ordered Amount of fluid ordered: 3 Sepsis Note Date exam was performed: 02/27/25 Time exam was performed: 04:45 Sepsis Attestation: Sepsis re-evaluation was performed Response to fluids: Fluid responsive hypotension Charges/Coding Visit Charges Inpatient E&M: 37972 Init Hosp L3 02/27/25 0646 <Electronically signed by Mechelle Maya DO> Cosigner Signature (if applicable): CC: STEVE Sanders; Dr. Mechelle Maya DO~ Signed [facility] Work Phone: [phone] [phone] History and physical note [facility] Medical Records Department [address] [place] [address] H&P Exam - Hospitalist 02/27/25 0001 MR#: [id number] Acct: [id number] Name: ELIS BILLS Rep #:[id number] : 1960 64 From: Mechelle Slade DO PCP: Anna Sanders PA-C Status:ADM IN Location: ICU ICU01-1 [facility] - General General Date of Admission: 02/27/25 Date of Service: 02/27/25 Chief Complaint: AMS. HPI Narrative ELIS BILLS, is a 64 M with a past medical history of essential hypertension;on lisinopril, hyperlipidemia; on atorvastatin, obesity; with BMI of 38.7 this admission, history of tobacco abuse; with subsequent asthma/COPD on umeclidinium-vilanterol, ipratropium-albuterol q. 4 hours prn plus montelukast, history of EtOH abuse; with patient admitted to drinking ~8-9 beers daily on folate and thiamine supplementation, GERD; on esomeprazole and OA; with spinal stenosis of the lumbar region (without claudication) who presents to [facility] ER complaining of altered mental status.Mr. Bills is not a fully-reliable historian at this time so information was gathered from chart, m edical staff and computer. According to the records his states that he had a fall yesterday evening and that he was not acting normally on the evening of February 26, 2025. She informed the ER physician that she was getting ready for work when he began complaining of pain in his knee and they both agreed he should try to sleep in the recliner. She then noted when she was getting ready to leavehe was very confused so she activated EMS to have him brought in for further evaluation and treatment. He complains of fever and cough but is confused with no complaints of lightheadedness, visual changes, abdominal pain, nausea, vomiting, diarrhea, constipation, chest pain, palpitations, heart raci ng, dysuria, hematuria or rash. In the ER he was noted to have a Fever of 102.7 degrees Fahrenheit with Leukocytosis of 17.4K present on admission consistent with CT scan of the chest revealing RLL Pneumonia; likely due to aspiration complicated by Hyponatremia of 126 mmol/L present on admission suspected to be due to Beer Potomania with a UA negative for acute infection andhead CT without contrast that revealed small vessel degenerative changes with noacute ICH, midline shift or mass effect with MRI recommended CT of the cervical spine without contrast that revealed no acute fracture, along with a CXR that revealed cardiomegaly with mild congestion and X-rays of the Left knee that revealed severe 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 He was then admitted tot ICU for ongoing care for a stay that is expected to extend beyond 2 midnights. [facility] Medical History Hyperlipemia Hypertension GERD (gastroesophageal reflux disease) Home Medications ?Medication ?Instructions ?Recorded ?Last Taken ?Type atorvastatin 80 mg tablet 80 mg PO DAILY 03/22/2211/07 History clopidogrel 75 mg tablet 75 mg PO DAILY 03/22/2211/07 History lisinopril 2.5 mg tablet 2.5 mg PO DAILY 03/22/2211/07 History esomeprazole magnesium 40 mg 40 mg PO DAILY 02/26/25 U nknown History capsule,delayed release folic acid 1 mg tablet 1 mg PO DAILY 02/26/25 Unkno wn History ipratropium 0.5 mg-albuterol 3 mg 3 ml continuous nebu lization Q4H 02/26/25 Unknown History (2.5 mg base)/3 mL nebulization PRN PRN wheezing soln montelukast 10 mg tablet 10 mg PO DAILY 02/26/25 Unkn own History thiamine HCl (vitamin B1) 100 mg 100 mg PO DAILY 02/26 Unknown History tablet umeclidinium 62.5 mcg-vilanterol 1 ea inhalation DAILY 02/26/25 Unknown History 25 mcg/actuation powdr for inhalation (Anoro Ellipta) Allergy/AdvReac Type Severity Reaction Status Date / Time Penicillins (PCN) Allergy Unknown - Verified 02/26/25 20:54 WAS A BABY Social History Smoking Status: Current every day smoker tobacco type: cigarettes ROS ROS Narrative ROS was limited by patient confusion and was completed as much as possible in HPI. Vital Signs Vital Signs Vital Signs: 02/26/25 20:50 02/26/25 20:54 02/26/25 20:59 Temperature 102.7 F H 102.7 F H Temperature Source Oral Oral Pulse Rate 106 H 99 Respiratory Rate 28 H 46 H Respiratory Effort Short of Breath Labored Respiratory Depth Shallow Respiratory Pattern Tachypnea Blood Pressure 154/75 H 142/66 H Blood Pressure Mean 101 91 Pulse Ox 94 96 Oxygen Delivery Method Room Air Room Air Room Air 02/26/25 21:01 02/26/25 21:54 02/26/25 22:00 Temperature 100.2 F H 100.2 F H Temperature Source Oral Oral Pulse Rate 94 91 Respiratory Rate 28 H 27 H Respiratory Effort Respiratory Depth Respiratory Pattern Blood Pressure 139/70 H 139/70 H Blood Pressure Mean 93 93 Pulse Ox 97 94 94 Oxygen Delivery Method Room Air Room Air Room Air 02/26/25 22:59 Temperature 99.2 F H Temperature Source Oral Pulse Rate 83 Respiratory Rate 33 H Respiratory Effort Respiratory Depth Respiratory Pattern Blood Pressure 138/74 H Blood Pressure Mean 95 Pulse Ox 100 Oxygen Delivery Method Room Air Weight Weight: 262 lb 5.601 oz Body Mass Index (BMI) 38.7 Physical Exam Const alert and no apparent distress Constitutional Narrative: Obese patient with confusion and nontoxic appearance. General Appearance: cooperative Orientation / Consciousness: confused HEENT normocephalic, head/scalp atraumatic, hearing grossly normal bilaterally and moist oral mucous membranes Eyes PERRL, EOMs intact bilaterally and conjunctivae normal Neck no lymphadenopathy, supple and no JVD Resp normal respiratory effort, no retractions and no use of accessory muscles Resp Narrative: Diminished breath sounds over RLL. Cardio regular rate and regular rhythm GI normal to inspection, nondistended, normoactive bowel sounds, soft to palpation,non-tender and non-distended GI Narrative: Obese. Extremity normal to inspection, full ROM and no clubbing, cyanosis or edema Skin Skin Narrative: Patient has no evidence of rash or jaundice. Neuro CN's II-XII intact bilaterally, moves all extremities and no focal motor deficits Sensorium / Orientation: awake, alert, oriented to person and oriented to place Speech: speech normal Psych affect normal Results Medical Records Data Attestation: I reviewed the patient's medical records Lab / Micro Data Attestation: I reviewed the patient's lab results. 02/26/25 20:55 02/26/25 20:55 Labs: Laboratory Results - last 24 hr 02/26/25 20:20: Urine Color Yellow, Urine Clarity Clear, Urine pH 6.0, Ur Specific [place] 1.020, Urine Protein 100 H, Urine Glucose (UA) Normal, Urine Ketones 5 H, Urine Occult Blood 150 H, Urine Nitrite Negative, Urine Bilirubin Negative, Urine Urobilinogen Normal, Ur Leukocyte Esterase Negative,Urine RBC 0- 5 SEEN, Urine WBC 0-5 SEEN, Ur Squamous Epith Cells 0-5 SEEN, Ur Renal Epithelial Cell 0-5 SEEN, Urine Bacteria 3+, Hyaline Casts 5-10 SEEN, Fine Granular Casts 10-25 SEEN, Urine Mucus 0 SEEN 02/26/25 20:55: WBC 17.4 H, RBC 4.39 L, Hgb 13.1, Hct 37.2 L, MCV 84.7, MCH 29.8, MCHC 35.2, RDW Std Deviation 42.0, RDW Coeff of Carlos 13.4, Plt Count 315, MPV 9.5, Immature Gran % (Auto) 0.700, Neut % (Auto) 87.3 H, Lymph % (Auto) 3.9 L, Emanuel % (Auto) 7.3, Eos % (Auto) 0.3, Baso % (Auto) 0.5, Absolute Neuts (auto)15.2 H, Absolute Lymphs (auto) 0.68 L, Nucleated RBC % 0, PT 15.3 H, INR 1.2, APTT 34.5, Sodium 126 L, Potassium 4.0, Chloride 90 L, Carbon Dioxide 18.9 L, Anion Gap 18 H, BUN 16, Creatinine 1.19, Estim Creat Clear Calc 78.80, Est GFR (MDRD) Non-Af 68, BUN/Creatinine Ratio 13.5, Glucose 111 H, Lactic Acid < 1.0, Calcium 9.3, Total Bilirubin 0.88, AST 42 H, ALT 18, Alkaline Phosphatase 110, Troponin T High Sens 53 H, Total Protein 7.9, Albumin 4.1, Globulin 3.8, Albumin/Globulin Ratio 1.1 02/26/25 23:12: Troponin T Hi Sens 2 Hr 49 H ABG Data ABG results: ABG 02/26/25 22:22 Specimen Type SERGIO Sample Site Not entered O2 % 4.0 VBG pH 7.47 H VBG pO2 68 H VBG HCO3 24 VBG Total CO2 25 VBG O2 Sat (Calc) 95 H VBG Base Excess 0 POC Mix VBG pCO2 Pt Tmp 32.9 L O2 Delivery Device Not entered Imaging Radiology Impression Brain CT 02/26/25 21:30 IMPRESSION: 1. Small vessel ischemic/degenerative changes. 2. No acute intracranial hemorrhage, midline shift or mass effect. If symptoms persist, further evaluation with MRI is recommended. Reading Location: [facility] Cervical Spine CT 02/26/25 21:30 IMPRESSION: No acute fracture. Reading Location: [facility] Knee X-Ray 02/26/25 21:45 IMPRESSION: Degenerative changes as above. Reading Location: [facility] Chest X-Ray 02/26/25 21:47 IMPRESSION: Cardiomegaly with mild congestion. Reading Location: [facility] Imaging Services [address] [place] [address] Chest without Contrast MR#: [id number] Acct: [id number] Name: ELIS BILLS Rep #: [id number] : 1960 M 64 From: Willy Arellano MD PCP: Anna Sanders PA-C Status: ADM IN Study: Chest without Contrast Date of Exam: 02/27/25 Exam# [id number] Ordering Dr: Austin Perez DO PROCEDURE: CHEST WITHOUT CONTRAST 02/27/2025 REASON FOR EXAM: FEVER TECHNIQUE: Chest CT without contrast. Coronal and Sagittal reconstruction series were provided. One or more dose reduction techniques were used (e.g., Automated exposure control, adjustment of the mA and/or kV according to patient size, use of iterative reconstruction technique RADIATION DOSE SUMMARY: CTDlvol: 20 mGy DLP: 721 mGycm COMPARISON: Chest x-ray 02/26/2025 FINDINGS: Unremarkable base of neck and axilla. Normal esophagus. Upper limits of normalheart size. No acute vascular pathology on noncontrast scanning. Mediastinal and right hilar adenopathy, likely reactive. Thoracic spine degeneration. Mild scoliosis. No acute chest wall findings. Noacute upper abdominal findings. Central airways are patent. There is right lower lobe consolidative airspace disease. There is under aeration at the left base. CT/Chest without Contrast IMPRESSION: Right lower lobe pneumonia. Reading Location: [place] [address] CC: STEVE Sanders; Dr. Austin Perez, DO ~ Litigation Attorney: Signed Assessment & Plan Assessment/Plan (1) Sepsis: QUALIFIERS: Sepsis acute organ dysfunction status: with acute organ dysfunction Sepsis type: sepsisdue to unspecified organism Severe sepsis acute organ dysfunction type: encephalopathy Severe sepsis shock status:without septic shock Qualified Code(s): A41.9 - Sepsis, unspecified organism; R65.20 - Severe sepsis without septic shock; G93.41 - Metabolic encephalopathy (2) Aspiration pneumonia: QUALIFIERS: Aspiration pneumonia type: unspecified Laterality: right Lung location: lower lobe of lung Qualified Code(s): J69.0 - Pneumonitis due to inhalation of food and vomit (3) Fever: QUALIFIERS: Fever type: unspecified Qualified Code(s): R50.9 - Fever, unspecified (4) Leukocytosis: QUALIFIERS: Leukocytosis type: unspecified Qualified Code(s): D72.829 - Elevated white blood cell count, unspecified (5) Hyponatremia: (6) Acute metabolic encephalopathy: (7) Alcohol abuse: (8) Tobacco abuse: (9) Obesity (BMI 30-39.9): PLAN: Plan 1. Fever of 102.7 degrees Fahrenheit with Leukocytosis of 17.4K present on admission consistent with CT of chest positive for RLL Pneumonia likely due to Aspiration with possible Sepsis - Admit to ICU. We will continue IV cefepime and IV vancomycin begun in ER and treat according to Sepsis protocolon aspiration precautions. Give ondansetron prn for nausea/vomiting. Give acetaminophen prn for pain or fever. 2. Hyponatremia of 126 mmol/L present on admission suspected to be due to Beer Potomania complicating #1 - Give NS IVF. Urine specific gravity in normal rangeat 1.02 on admission. Check urine and serum osmolality. Recheck CMP in AM to follow trend. 3. Acute Metabolic Encephalopathy in the setting of known Chronic EtOH Abuse compounding #1 & #2 - We will minimize TECHNICAL LEAD-active medications in an effort to allow sensorium to clear. JAMI and UDS pending. EtOH Cessation will be stronglyencouraged with patient started on phenobarbital taper to prevent impending EtOHwithdrawal. 4. History of tobacco abuse; with subsequent asthma/COPD on umeclidinium- vilanterol, ipratropium-albuterol q. 4 hours prn plus montelukast adding to the medical complexity of #1 - #3 - Stable with noevidence of acute flare at this time. Continue scheduled and prn nebulizers/inhalers. Tobacco Cessation will be strongly encouraged with Nicotine patch offered to control cravings. 5. Obesity (class II); with BMI of 38.7 this admission adding to the burden of disease outlined from #1 - #4 - Weight loss will be recommended. Check TSH. This complicates his case and may hamper recovery. 6. Essential hypertension; on lisinopril - Hold scheduled antihypertensives in light of #1. 7. Hyperlipidemia; on atorvastatin - Resume statin and check Lipid Profile. 8. GERD; on esomeprazole - Maintain PPI as previous. 9. OA; with spinal stenosis of the lumbar region (without claudication) and severe DJD of the Left knee noted on admission X-rays - Give acetaminophen prn as outlined in #1. 10. DVT prophylaxis - Enoxaparin 40 mg sq daily plus SCD's. Total time: Approximately (but not less than) 75 minutes. Sepsis Attestation Sepsis Alert: Yes Sepsis Attestation: Sepsis Ruled Out Date exam was performed: 02/27/25 Time exam was performed: 12:45 Possible Source of Sepsis: Pulmonary Sepsis Organ Dysfunction Criteria Present: New/Unexplained change in mental status Supportive Findings: CT chest positive for RLL Pneumonia likely due to Aspiration with Fever of 102.7degrees Fahrenheit,Leukocytosis of 17.4K and Altered Mental Status all present on admission. Fluid Resuscitation Fluid resuscitation indicated?: Yes Fluid Resuscitation ordered: 30 ml/kg fluid bolus ordered Amount of fluid ordered: 3 Sepsis Note Date exam was performed: 02/27/25 Time exam was performed: 04:45 Sepsis Attestation: Sepsis re-evaluation was performed Response to fluids: Fluid responsive hypotension Charges/Coding Visit Charges Inpatient E&M: 68300 Init Hosp L3 02/27/25 0646 Cosigner Signature (if applicable): CC: STEVE Sanders; Dr. Mechelle Maya DO~ Signed [facility]08-12-2025 Consult note Author Dhiraj Villarreal [facility] Note Date/Time February 27, 2025 3: 36am [facility] Medical Records Department [address] [place] [address] Pharmacokinetic/Renal -Consult 02/27/255 MR#: [id number] Acct: [id number] Name: ELIS BILLS Rep #:[id number] : 1960 64 From: Dhiraj Yun od PCP: Anna Sanders PA-C Status:ADM IN Y Location: ICU ICU01-1 Consult Antibiotic Management Pharmacy has been consulted to manage selected antibiotic: Vancomycin Type of Intervention Type of Consult: New start Labs Labs: Sodium 126 mmol/L (133-145) L 02/26/25 20:55 Potassium 4.0 mmol/L (3.3-5.1) 02/26/25 20:55 Chloride 90 mmol/L (98-108) L 02/26/25 20:55 Carbon Dioxide 18.9 mmol/L (21.0-32.0) L 02/26/25 20:55 Anion Gap 18 (5-15) H 02/26/25 20:55 BUN 16 mg/dL (4-19) 02/26/25 20:55 Creatinine 1.19 mg/dL (0.70-1.20) 02/26/25 20:55 Est GFR (MDRD) Non-Af 68 (>60) 02/26/25 20:55 BUN/Creatinine Ratio 13.5 RATIO (10-20) 02/26/25 20:55 Glucose 111 mg/dL (70-99) H 02/26/25 20:55 Dosing Weight Weight used for dosin.6 kg Estimated Creatinine Clearance Estimated Creatinine Clearance: 78.8 Goal Trough Goal Trough: 15-20 mcg/mL Pharmacy Plan for Drug Dosing Pharmacy Plan for Drug Dosing: Pharmacy Service will continue to monitor and adjust dosing as required. LOADING DOSE 1750MG. START 1750MG Q12H AND DRAW TROUGH PRIOR TO 4TH DOSE Follow-Up Labs Follow-Up Labs: Trough: Vancomycin Date/Time Labs Ordered Labs to be done on [date and time ordered]: 02/28 @ 1200 02/27/25335 <Electronically signed by Dhiraj brewster> Date _ Dhiraj Villarreal Cosigner Signature (if applicable): Date __ CC: ~ Signed [facility] Work Phone: 1(314) 312-813908-12-2025 Consult note [facility] Medical Records Department [address] [place] [address] Pharmacokinetic/Renal -Consult 02/27/25 0335 MR#: [id number] Acct: [id number] Name: ELIS BILLS Rep #:[id number] : 1960 64 From: Dhiraj Yun od PCP: Anna Sanders PA-C Status:ADM IN Y Location: ICU ICU01-1 Consult Antibiotic Management Pharmacy has been consulted to manage selected antibiotic: Vancomycin Type of Intervention Type of Consult: New start Labs Labs: Sodium 126 mmol/L (133-145) L 02/26/25 20:55 Potassium 4.0 mmol/L (3.3-5.1) 02/26/25 20:55 Chloride 90 mmol/L (98-108) L 02/26/25 20:55 Carbon Dioxide 18.9 mmol/L (21.0-32.0) L 02/26/25 20:55 Anion Gap 18 (5-15) H 02/26/25 20:55 BUN 16 mg/dL (4-19) 02/26/25 20:55 Creatinine 1.19 mg/dL (0.70-1.20) 02/26/25 20:55 Est GFR (MDRD) Non-Af 68 (>60) 02/26/25 20:55 BUN/Creatinine Ratio 13.5 RATIO (10-20) 02/26/25 20:55 Glucose 111 mg/dL (70-99) H 02/26/25 20:55 Dosing Weight Weight used for dosin.6 kg Estimated Creatinine Clearance Estimated Creatinine Clearance: 78.8 Goal Trough Goal Trough: 15-20 mcg/mL Pharmacy Plan for Drug Dosing Pharmacy Plan for Drug Dosing: Pharmacy Service will continue to monitor and adjust dosing as required. LOADING DOSE 1750MG. START 1750MG Q12H AND DRAW TROUGH PRIOR TO 4TH DOSE Follow-Up Labs Follow-Up Labs: Trough: Vancomycin Date/Time Labs Ordered Labs to be done on [date and time ordered]: 02/28 @ 1200 02/27/25 0336 lood> Date _ Dhiraj Ayalaignsarita Signature (if applicable): Date __ CC: ~ Signed [facility]08-12-2025 Evaluation note* Diagnosis Onset Date Resolution Status Admit Date Acute hypoxic respiratory failure acute February 27 12:37am Acute metabolic encephalopathy acute February 27, 2025 12:37am Altered mental status acute Feb 12:37am Aspiration pneumonia acute 2024 12:37am Fever acute February 27 12:37am Hyponatremia acute February 27, 2025 12:37am Leukocytosis acute February 27, 2025 12:37am Obesity (BMI 30-39.9) acute Feb 12:37am Sepsis acute February 27 025 12:37am Tobacco abuse acute February 12:37am Alcohol abuse chronic February 12:37am [facility] Work Phone: 1([phone]) 702-686608-12-2025 Discharge summary Author Austin Perez [facility] Note Date/Time February 27, 2025 12 :07am [facility] Medical Records Department [address] [place] [id number] Emergency Department Summary 02/26/25 MR#: [id number] Acct: [id number] Name: ELIS BILLS Rep #:[id number] : 1960 64 From: Austin Perez DO PCP: Anna Sanders PA-C Status:REG ER Location: ED HPI History of Present Illness Chief Complaint: Alt LOC Narrative Narrative: Patient is a 64-year-old male with past medical history of hypertension, hyperlipidemia, GERD who presented to the emergency department chief complaint altered mental status. Per at bedside she states that yesterday evening hehad a fall and notes that tonight he was not acting his normal self. She notes that she was try to get ready for work and he had been complaining that his kneewas bothering him therefore she told him that he should sleep downstairs in the recliner tonight and he said yes that is a good idea. States that when she had to leave he was attempting to go up stairs and was very confused. She states that she then decided to call EMS to have her brought here for further evaluation management. They deny any blood thinning medications [facility] Medical History Hyperlipemia Hypertension GERD (gastroesophageal reflux disease) Home Medications ?Medication ?Instructions ?Recorded ?Last Taken ?Type atorvastatin 80 mg tablet 80 mg PO DAILY 03/22/2211/07 History clopidogrel 75 mg tablet 75 mg PO DAILY 03/22/2211/07 History lisinopril 2.5 mg tablet 2.5 mg PO DAILY 03/22/2211/07 History esomeprazole magnesium 40 mg 40 mg PO DAILY 02/26/25 U nknown History capsule,delayed release folic acid 1 mg tablet 1 mg PO DAILY 02/26/25 Unkno wn History ipratropium 0.5 mg-albuterol 3 mg 3 ml continuous nebu lization Q4H 02/26/25 Unknown History (2.5 mg base)/3 mL nebulization PRN PRN wheezing soln montelukast 10 mg tablet 10 mg PO DAILY 02/26/25 Unkn own History thiamine HCl (vitamin B1) 100 mg 100 mg PO DAILY 02/26 Unknown History tablet umeclidinium 62.5 mcg-vilanterol 1 ea inhalation DAILY 02/26/25 Unknown History 25 mcg/actuation powdr for inhalation (Anoro Ellipta) Allergy/AdvReac Type Severity Reaction Status Date / Time Penicillins (PCN) Allergy Unknown - Verified 02/26/25 20:54 WAS A BABY Social History Smoking Status: Current every day smoker tobacco type: cigarettes ROS ROS ED ROS Narrative Constitutional: Complains of fever denies any headaches, lightheadedness Eyes: Denies double vision blurry vision changes vision Cardiovascular: Denies chest pain Respiratory: Complains of cough denies shortness of breath Abdomen: Denies abdominal pain nausea vomit diarrhea : Denies any urinary symptoms Neurological: Denies any numbness, weakness, tingling Musculoskeletal: Denies any back pain Skin: Denies any rashes or lesions EXAM Physical Exam Narrative Exam Narrative: General: Patient lying in bed did appear to be not feeling well overall Head: atraumatic, normocephalic Eyes: PERRL bilaterally, EOMI Black no conjunctival injection noted Neck: Soft, supple, trachea midline Cardiovascular: Patient tachycardic with a regular rhythm Respiratory: Clear to auscultation bilaterally Abdomen: No tenderness to palpation, soft, nondistended Extremities: Radial pulses +2/4 in the bilateral extremities, +5/5 strength noted in the bilateral upper and lower extremities Neurological: Patient following commands knew that he was at the hospital was confused on the year Skin: Warm, dry, diaphoretic Const Vital Signs: 02/26/25 20:50 02/26/25 20:54 02/26/25 20:59 Temperature 102.7 F H 102.7 F H Temperature Source Oral Oral Pulse Rate 106 H 99 Respiratory Rate 28 H 46 H Respiratory Effort Short of Breath Labored Respiratory Depth Shallow Respiratory Pattern Tachypnea Blood Pressure 154/75 H 142/66 H Blood Pressure Mean 101 91 Pulse Ox 94 96 Oxygen Delivery Method Room Air Room Air Room Air 02/26/25 21:01 02/26/25 21:54 02/26/25 22:00 Temperature 100.2 F H 100.2 F H Temperature Source Oral Oral Pulse Rate 94 91 Respiratory Rate 28 H 27 H Respiratory Effort Respiratory Depth Respiratory Pattern Blood Pressure 139/70 H 139/70 H Blood Pressure Mean 93 93 Pulse Ox 97 94 94 Oxygen Delivery Method Room Air Room Air Room Air 02/26/25 22:59 02/27/25 00:00 Temperature 99.2 F H 98.3 F Temperature Source Oral Oral Pulse Rate 83 80 Respiratory Rate 33 H 16 Respiratory Effort Respiratory Depth Respiratory Pattern Blood Pressure 138/74 H 132/70 H Blood Pressure Mean 95 90 Pulse Ox 100 94 Oxygen Delivery Method Room Air Room Air MDM MDM MDM Narrative Medical decision making narrative: Patient is a 64-year-old male who presents to the emergency department with a chief complaint of altered mental status and not feeling well. On the differential diagnosis includes but not limited to intracranial hemorrhage, pneumonia, pneumothorax, electrolyte abnormality, ACS. Once the workup is obtained and reviewed he will be reevaluated. Patient was given 30 cc/kg bolus of IV fluids based on ideal body weight as he has a BMI of greater than 30 therefore 2500 mL will be given he will be given a gram of Tylenol for his fever. Patient CBC reviewed and showed a leukocytosis of 17,000, hemoglobin 13.1, platelet count 315. Patient's venous blood gas reviewed showed a pH 7.47. Patient sodium was low indicating hyponatremia at 126, anion gap of 18 carbon dioxide low at 18.9. Patient lactic acid was normal less than 1, AST and ALT are 42 and 18 respectively. Patient troponin was 53 delta troponin pending. Patient's EKG reviewed and showed sinus tachycardia with PACs noted with a rate of 105 bpm with evidence of right bundle branch block. Patient's EKG from April 22, 2019 was reviewed which showed evidence of right bundle branch block at that point time as well.. Patient urinalysis reviewed showed negative leukocyte esterase negative nitrites 0-5 white cells with 3+ bacteria this was sent for culture. Patient's chest x-ray was reviewed and showed cardiomegaly with mild congestion. This was reviewed by myself and by radiology. Patient was given vancomycin at 2307 and cefepime at 2307 as well. At 2307 there is still no identifiable source of infection. Patient's abdomen remains benign no tenderness to palpation At this point in time will discuss case with hospitalist for admission for altered mental status, fever, infection of unclear etiology. Discussed case with hospitalist Dr. Oneal who accept patient for admission to the intensive care unit. He is requesting adding CT chest on as well as CT abdomen pelvis with IV contrast, drug screen and alcohol level. These were ordered. Updated the patient and at bedside who is agreeable this plan allquestion concerns answered. Lab Data Labs: Laboratory Results - last 24 hr 02/26/25 02/26/25 02/26/25 20:20 20:55 23:12 WBC 17.4 H RBC 4.39 L Hgb 13.1 Hct 37.2 L MCV 84.7 MCH 29.8 MCHC 35.2 RDW Std Deviation 42.0 RDW Coeff of Carlos 13.4 Plt Count 315 MPV 9.5 Immature Gran % (Auto) 0.700 Neut % (Auto) 87.3 H Lymph % (Auto) 3.9 L Emanuel % (Auto) 7.3 Eos % (Auto) 0.3 Baso % (Auto) 0.5 Absolute Neuts (auto) 15.2 H Absolute Lymphs (auto) 0.68 L Nucleated RBC % 0 PT 15.3 H INR 1.2 APTT 34.5 Sodium 126 L Potassium 4.0 Chloride 90 L Carbon Dioxide 18.9 L Anion Gap 18 H BUN 16 Creatinine 1.19 Estim Creat Clear Calc 78.80 Est GFR (MDRD) Non-Af 68 BUN/Creatinine Ratio 13.5 Glucose 111 H Lactic Acid < 1.0 Calcium 9.3 Total Bilirubin 0.88 AST 42 H ALT 18 Alkaline Phosphatase 110 Troponin T High Sens 53 H Troponin T Hi Sens 2 Hr 49 H Total Protein 7.9 Albumin 4.1 Globulin 3.8 Albumin/Globulin Ratio 1.1 Urine Color Yellow Urine Clarity Clear Urine pH 6.0 Ur Specific [place] 1.020 Urine Protein 100 H Urine Glucose (UA) Normal Urine Ketones 5 H Urine Occult Blood 150 H Urine Nitrite Negative Urine Bilirubin Negative Urine Urobilinogen Normal Ur Leukocyte Esterase Negative Urine RBC 0-5 SEEN Urine WBC 0-5 SEEN Ur Squamous Epith Cells 0-5 SEEN Ur Renal Epithelial Cell 0-5 SEEN Urine Bacteria 3+ Hyaline Casts 5-10 SEEN Fine Granular Casts 10-25 SEEN Urine Mucus 0 SEEN ABG Data ABG results: ABG 02/26/25 22:22 Specimen Type SERGIO Sample Site Not entered O2 % 4.0 VBG pH 7.47 H VBG pO2 68 H VBG HCO3 24 VBG Total CO2 25 VBG O2 Sat (Calc) 95 H VBG Base Excess 0 POC Mix VBG pCO2 Pt Tmp 32.9 L O2 Delivery Device Not entered Radiography Diagnostic Testing: Clinical Impression(s) from Imaging Studies Brain CT 02/26/25 21:30 IMPRESSION: 1. Small vessel ischemic/degenerative changes. 2. No acute intracranial hemorrhage, midline shift or mass effect. If symptoms persist, further evaluation with MRI is recommended. Reading Location: [facility] Cervical Spine CT 02/26/25 21:30 IMPRESSION: No acute fracture. Reading Location: [facility] Knee X-Ray 02/26/25 21:45 IMPRESSION: Degenerative changes as above. Reading Location: [facility] Chest X-Ray 02/26/25 21:47 IMPRESSION: Cardiomegaly with mild congestion. Reading Location: [facility] Discharge Plan Triage Chief Complaint: Alt LOC ED Provider: Austin Perez Dx/Rx/DC Orders Clinical Impression: Fever, Altered mental status, Leukocytosis, Hyponatremia Prescriptions: No Action atorvastatin 80 mg tablet 80 mg PO DAILY clopidogrel 75 mg tablet 75 mg PO DAILY lisinopril 2.5 mg tablet 2.5 mg PO DAILY ipratropium-albuterol 0.5 mg-3 mg(2.5 mg base)/3 mL solution for nebulization 3 ml continuous nebulization Q4H PRN PRN (Reason: wheezing) esomeprazole magnesium 40 mg capsule,delayed release(DR/EC) 40 mg PO DAILY folic acid 1 mg tablet 1 mg PO DAILY thiamine HCl (vitamin B1) 100 mg tablet 100 mg PO DAILY umeclidinium-vilanterol [Anoro Ellipta] 62.5-25 mcg/actuation blister with device 1 ea INHALATION DAILY montelukast 10 mg tablet 10 mg PO DAILY Primary Care Provider: Anna Sanders Referrals: Pilar Lanza DO [Non-Staff] - Print Language: Malian Disposition Disposition: Acute Care Hospital [facility] What to do if you have Problems For any increased pain, shortness of breath, bleeding, nausea or vomiting, chestpain, or any unexpected problems, contact your Primary Care Provider. Call [facility] ([phone]) or report to the closest Emergency Room. Call 911 if necessary. 02/27/256 <Electronically signed by Austin Perez DO> Cosigner Signature (if applicable): CC: STEVE Sanders ~ Signed [facility] Work Phone: 1(810) 671-234008-12-2025 Radiology Diagnostic study note [facility] Imaging Services [address] [place] [address] Abdomen/Pelvis W IV Cont ONLY MR#: [id number] Acct: [id number] Name: ELIS BILLS Rep #: [id number] : 1960 M 64 From: Kate Arellano MD PCP: Anna Sanders PA-C Status: ADM IN Study:Abdomen/Pelvis W IV Cont ONLY Date of E xam: 02/27/25 Exam# [id number] Ordering Dr: Rubina Perez DO PROCEDURE: ABDOMEN/PELVIS W IV CONT ONLY 02/27/2025 REASON FOR EXAM: FEVER TECHNIQUE: ABDOMEN/PELVIS W IV CONT ONLY Coronal and Sagittal reconstruction series were provided. CONTRAST: Isovue 370 VOLUME: 96 mL One or more dose reduction techniques were used (e.g., Automated exposure control, adjustment of the mA and/or kV according to patient size, use of iterative reconstruction technique. RADIATION DOSE SUMMARY: CTDlvol: 54 mGy DLP: 2188 mGycm COMPARISON: No FINDINGS: Unremarkable liver, gallbladder, pancreas, spleen, adrenal glands, kidneys. No hydronephrosis. Normal bladder. Normal-sized prostate. No retroperitoneal or pelvic adenopathy. No free air. Nonobstructed bowel. There are 4 small lipomas, within the duodenal lumen, measuring up to approximately 2 cm. Normal appendix. No acute large bowel findings. Status post bilateral THR. Lumbar spine scoliosis and degeneration. Prior lumbar spine surgery. Old L1 compression deformity. CT/Abdomen/Pelvis W IV Cont ONLY IMPRESSION: No acute abdominopelvic findings. Refer to chest CT report for additional detail. Reading Location: [place] [address] CC: STEVE Sanders; Dr. Austin Perez DO ~ Litigation Attorney: Signed [facility]08-12-2025 Discharge summary [facility] Medical Records Department [address] [place] [address] Emergency Department Summary 02/26/25 MR#: [id number] Acct: [id number] Name: ELIS BILLS Rep #:[id number] : 1960 64 From: Austin Perez DO PCP: Anna Sanders PA-C Status:REG ER Location: ED HPI History of Present Illness Chief Complaint: Alt LOC Narrative Narrative: Patient is a 64-year-old male with past medical history of hypertension, hyperlipidemia, GERD who presented to the emergency department chief complaint altered mental status. Per at bedside she states that yesterday evening hehad a fall and notes that tonight he was not acting his normal self.She notes that she was try to get ready for work and he had been complaining that his kneewas bothering him therefore she told him that he should sleep downstairs in the recliner tonight and he said yes that is a good idea. States that when she had to leave he was attempting to go up stairs and wasvery confused. She states that she then decided to call EMS to have her brought here for further lani luation management. They deny any blood thinning medications [facility] Medical History Hyperlipemia Hypertension GERD (gastroesophageal reflux disease) Home Medications ?Medication ?Instructions ?Recorded ?Last Taken ?Type atorvastatin 80 mg tablet 80 mg PO DAILY 03/22/2211/07 History clopidogrel 75 mg tablet 75 mg PO DAILY 03/22/2211/07 History lisinopril 2.5 mg tablet 2.5 mg PO DAILY 03/22/2211/07 History esomeprazole magnesium 40 mg 40 mg PO DAILY 02/26/25 U nknown History capsule,delayed release folic acid 1 mg tablet 1 mg PO DAILY 02/26/25 Unkno wn History ipratropium 0.5 mg-albuterol 3 mg 3 ml continuous nebu lization Q4H 02/26/25 Unknown History (2.5 mg base)/3 mL nebulization PRN PRN wheezing soln montelukast 10 mg tablet 10 mg PO DAILY 02/26/25 Unkn own History thiamine HCl (vitamin B1) 100 mg 100 mg PO DAILY 02/26 Unknown History tablet umeclidinium 62.5 mcg-vilanterol 1 ea inhalation DAILY 02/26/25 Unknown History 25 mcg/actuation powdr for inhalation (Anoro Ellipta) Allergy/AdvReac Type Severity Reaction Status Date / Time Penicillins (PCN) Allergy Unknown - Verified 02/26/25 20:54 WAS A BABY Social History Smoking Status: Current every day smoker tobacco type: cigarettes ROS ROS ED ROS Narrative Constitutional: Complains of fever denies any headaches, lightheadedness Eyes: Denies double vision blurry vision changes vision Cardiovascular: Denies chest pain Respiratory: Complains of cough denies shortness of breath Abdomen: Denies abdominal pain nausea vomit diarrhea : Denies any urinary symptoms Neurological: Denies any numbness, weakness, tingling Musculoskeletal: Denies any back pain Skin: Denies any rashes or lesions EXAM Physical Exam Narrative Exam Narrative: General: Patient lying in bed did appear to be not feeling well overall Head: atraumatic, normocephalic Eyes: PERRL bilaterally, EOMI Black no conjunctival injection noted Neck: Soft, supple, trachea midline Cardiovascular: Patient tachycardic with a regular rhythm Respiratory: Clear to auscultation bilaterally Abdomen: No tenderness to palpation, soft, nondistended Extremities: Radial pulses +2/4 in the bilateral extremities, +5/5 strength noted in the bilateral upper and lower extremities Neurological: Patient following commands knew that he was at the hospital was confused on the year Skin: Warm, dry, diaphoretic Const Vital Signs: 02/26/25 20:50 02/26/25 20:54 02/26/25 20:59 Temperature 102.7 F H 102.7 F H Temperature Source Oral Oral Pulse Rate 106 H 99 Respiratory Rate 28 H 46 H Respiratory Effort Short of Breath Labored Respiratory Depth Shallow Respiratory Pattern Tachypnea Blood Pressure 154/75 H 142/66 H Blood Pressure Mean 101 91 Pulse Ox 94 96 Oxygen Delivery Method Room Air Room Air Room Air 02/26/25 21:01 02/26/25 21:54 02/26/25 22:00 Temperature 100.2 F H 100.2 F H Temperature Source Oral Oral Pulse Rate 94 91 Respiratory Rate 28 H 27 H Respiratory Effort Respiratory Depth Respiratory Pattern Blood Pressure 139/70 H 139/70 H Blood Pressure Mean 93 93 Pulse Ox 97 94 94 Oxygen Delivery Method Room Air Room Air Room Air 02/26/25 22:59 02/27/25 00:00 Temperature 99.2 F H 98.3 F Temperature Source Oral Oral Pulse Rate 83 80 Respiratory Rate 33 H 16 Respiratory Effort Respiratory Depth Respiratory Pattern Blood Pressure 138/74 H 132/70 H Blood Pressure Mean 95 90 Pulse Ox 100 94 Oxygen Delivery Method Room Air Room Air MDM MDM MDM Narrative Medical decision making narrative: Patient is a 64-year-old male who presents to the emergency department with a chief complaint of altered mental status and not feeling well. On the differential diagnosis includes but not limited to intracranial hemorrhage, pneumonia, pneumothorax, electrolyte abnormality, ACS. Once the workup is ob tained and reviewed he will be reevaluated. Patient was given 30 cc/kg bolus of IV fluids based on ideal body weight as he has a BMI of greater than 30 therefore 2500 mL will be given he will be given a gram of Tylenol for his fever. Patient CBC reviewed and showed a leukocytosis of 17,000, hemoglobin 13.1, platelet count 315. Patient's venous blood gas reviewed showed a pH 7.47. Patient sodium was low indicating hyponatremia at 126, anion gap of 18 carbon dioxide low at 18.9. Patient lactic acid was normal less than 1, AST andALT are 42 and 18 respectively. Patient troponin was 53 delta troponin pending. Patient's EKG reviewed and showed sinus tachycardia with PACs noted with a rate of 105 bpm with evidence of right bundle branch block. Patient's EKG from April 22, 2019 was reviewed which showed evidence of right bundle branch block at that point time as well.. Patient urinalysis reviewed showed negative leukocyte esterase negative nitrites 0-5 white cells with 3+ bacteria this was sent for culture. Patient's chestx-ray was reviewed and showed cardiomegaly with mild congestion. This was reviewed by myself and byradiology. Patient was given vancomycin at 2307 and cefepime at 2307 as well. At 2307 there is still no identifiable source of infection. Patient's abdomen remains benign no tenderness to palpation At this point in time will discuss case with hospitalist for admission for altered mental status, fever, infection of unclear etiology. Discussed case with hospitalist Dr. Oneal who accept patient for admission to the intensive care unit. He is requesting adding CT chest on as well as CT abdomen pelvis with IV contrast, drug screen and alcohol level. These were ordered. Updated the patient and at bedside who is agreeable this plan allquestion concerns answered. Lab Data Labs: Laboratory Results - last 24 hr 02/26/25 02/26/25 02/26/25 20:20 20:55 23:12 WBC 17.4 H RBC 4.39 L Hgb 13.1 Hct 37.2 L MCV 84.7 MCH 29.8 MCHC 35.2 RDW Std Deviation 42.0 RDW Coeff of Carlos 13.4 Plt Count 315 MPV 9.5 Immature Gran % (Auto) 0.700 Neut % (Auto) 87.3 H Lymph % (Auto) 3.9 L Emanuel % (Auto) 7.3 Eos % (Auto) 0.3 Baso % (Auto) 0.5 Absolute Neuts (auto) 15.2 H Absolute Lymphs (auto) 0.68 L Nucleated RBC % 0 PT 15.3 H INR 1.2 APTT 34.5 Sodium 126 L Potassium 4.0 Chloride 90 L Carbon Dioxide 18.9 L Anion Gap 18 H BUN 16 Creatinine 1.19 Estim Creat Clear Calc 78.80 Est GFR (MDRD) Non-Af 68 BUN/Creatinine Ratio 13.5 Glucose 111 H Lactic Acid < 1.0 Calcium 9.3 Total Bilirubin 0.88 AST 42 H ALT 18 Alkaline Phosphatase 110 Troponin T High Sens 53 H Troponin T Hi Sens 2 Hr 49 H Total Protein 7.9 Albumin 4.1 Globulin 3.8 Albumin/Globulin Ratio 1.1 Urine Color Yellow Urine Clarity Clear Urine pH 6.0 Ur Specific [place] 1.020 Urine Protein 100 H Urine Glucose (UA) Normal Urine Ketones 5 H Urine Occult Blood 150 H Urine Nitrite Negative Urine Bilirubin Negative Urine Urobilinogen Normal Ur Leukocyte Esterase Negative Urine RBC 0-5 SEEN Urine WBC 0-5 SEEN Ur Squamous Epith Cells 0-5 SEEN Ur Renal Epithelial Cell 0-5 SEEN Urine Bacteria 3+ Hyaline Casts 5-10 SEEN Fine Granular Casts 10-25 SEEN Urine Mucus 0 SEEN ABG Data ABG results: ABG 02/26/25 22:22 Specimen Type SERGIO Sample Site Not entered O2 % 4.0 VBG pH 7.47 H VBG pO2 68 H VBG HCO3 24 VBG Total CO2 25 VBG O2 Sat (Calc) 95 H VBG Base Excess 0 POC Mix VBG pCO2 Pt Tmp 32.9 L O2 Delivery Device Not entered Radiography Diagnostic Testing: Clinical Impression(s) from Imaging Studies Brain CT 02/26/25 21:30 IMPRESSION: 1. Small vessel ischemic/degenerative changes. 2. No acute intracranial hemorrhage, midline shift or mass effect. If symptoms persist, further evaluation with MRI is recommended. Reading Location: [facility] Cervical Spine CT 02/26/25 21:30 IMPRESSION: No acute fracture. Reading Location: [facility] Knee X-Ray 02/26/25 21:45 IMPRESSION: Degenerative changes as above. Reading Location: [facility] Chest X-Ray 02/26/25 21:47 IMPRESSION: Cardiomegaly with mild congestion. Reading Location: [facility] Discharge Plan Triage Chief Complaint: Alt LOC ED Provider: Austin Perez Dx/Rx/DC Orders Clinical Impression: Fever, Altered mental status, Leukocytosis, Hyponatremia Prescriptions: No Action atorvastatin 80 mg tablet 80 mg PO DAILY clopidogrel 75 mg tablet 75 mg PO DAILY lisinopril 2.5 mg tablet 2.5 mg PO DAILY ipratropium-albuterol 0.5 mg-3 mg(2.5 mg base)/3 mL solution for nebulization 3 ml continuous nebulization Q4H PRN PRN (Reason: wheezing) esomeprazole magnesium 40 mg capsule,delayed release(DR/EC) 40 mg PO DAILY folic acid 1 mg tablet 1 mg PO DAILY thiamine HCl (vitamin B1) 100 mg tablet 100 mg PO DAILY umeclidinium-vilanterol [Anoro Ellipta] 62.5-25 mcg/actuation blister with device 1 ea INHALATION DAILY montelukast 10 mg tablet 10 mg PO DAILY Primary Care Provider: Anna Sanders Referrals: Pilar Lanza DO [Non-Staff] - Print Language: Malian Disposition Disposition: Acute Care Hospital [facility] What to do if you have Problems For any increased pain, shortness of breath, bleeding, nausea or vomiting, chestpain, or any unexpected problems, contact your Primary Care Provider. Call [facility] ([phone]) or report tothe closest Emergency Room. Call 911 if necessary. 02/27/25 0007 Cosigner Signature (if applicable): CC: STEVE Sanders ~ Signed [facility]08-11-2025 Radiology Diagnostic study note [facility] Imaging Services [address], [place] [address] Chest PA and Lateral MR#: [id number] Acct: [id number] Name: ELIS BILLS Rep #: [id number] : 1960 M 64 From: Char Roman MD PCP: Anna Sanders PA-C Status: REG ER Study:Chest PA and Lateral Date of Exam: 02/26/25 Exam# [id number] Ordering Dr: Rubina Perez DO EXAM: XR Chest, 2 Views CLINICAL INDICATION: AMS TECHNIQUE: Frontal and lateral views of the chest. COMPARISON: No relevant prior studies available. FINDINGS: LUNGS AND PLEURAL SPACES: See below. HEART: Cardiomegaly with mild congestion. MEDIASTINUM: Unremarkable. Normal mediastinal contour. BONES/JOINTS: Unremarkable. No acute fracture. RAD/Chest PA and Lateral IMPRESSION: Cardiomegaly with mild congestion. Reading Location: [facility] CC: STEVE Sanders; Dr. Austin Perez DO ~ Litigation Attorney: Signed [facility]08-11-2025 Radiology Diagnostic study note [facility] Imaging Services [address], [place] [address] Knee 4 or More Views MR#: [id number] Acct: [id number] Name: ELIS BILLS Rep #: [id number] : 1960 M 64 From: Char Roman MD PCP: Anna Sanders PA-C Status: REG ER Study:Knee 4 or More Views Date of Exam: 02/26/25 Exam# [id number] Ordering Dr: Rubina Perez DO EXAM: XR Left Knee Complete, 4 or More Views CLINICAL INDICATION: FALL TECHNIQUE: Four or more views of the left knee. COMPARISON: No relevant prior studies available. 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 No acute fracture. No dislocation. SOFT TISSUES: Unremarkable. RAD/Knee 4 or More Views IMPRESSION: Degenerative changes as above. Reading Location: [facility] CC: STEVE Sanders; Dr. Austin Perez DO ~ Litigation Attorney: Signed [facility]08-11-2025 Radiology Diagnostic study note [facility] Imaging Services [address], [place] [address] Spine Cervical without Contras MR#: [id number] Acct: [id number] Name: ELIS BILLS Rep #: [id number] : 1960 M 64 From: Char Roman MD PCP: Anna Sanders PA-C Status: REG ER Study:Spine Cervical without Contras Date of Exam: 02/26/25 Exam# [id number] Ordering Dr: Rubina Perez DO EXAM: CT Cervical Spine Without Intravenous Contrast CLINICAL INDICATION: FALL TECHNIQUE: Axial computed tomography images of the cervical spine without intravenous contrast. This CT exam was performed using one or more of the following dose reduction techniques: automated exposure control, adjustment of the mA and/or kV according to patient size, and/or use of iterative reconstruction technique. COMPARISON: No relevant prior studies available. FINDINGS: VERTEBRAE: 3 mm sclerotic lesion of C4 could be a bone island. No acute fracture. DISCS/SPINAL CANAL/NEURAL FORAMINA: No acute findings. No significant spinal canal stenosis. SOFT TISSUES: Unremarkable. OTHER FINDINGS: Degenrative cervical. CT/Spine Cervical without Contras IMPRESSION: No acute fracture. Reading Location: [facility] CC: STEVE Sanders; Dr. Austin Perez DO ~ Litigation Attorney: Signed [facility]08-11-2025 Radiology Diagnostic study note [facility] Imaging Services [address] [place] [address] Brain/Head without Contrast MR#: [id number] Acct: [id number] Name: ELIS BILLS Rep #: [id number] : 1960 M 64 From: Char Roman MD PCP: Anna Sanders PA-C Status: REG ER Study:Brain/Head without Contrast Date of Exa m: 02/26/25 Exam# [id number] Ordering Dr: Rubina Perez DO EXAM: CT Head Without Intravenous Contrast CLINICAL INDICATION: FALL ON THINNERS, AMS TECHNIQUE: Axial computed tomography images of the head/brain without intravenous contrast. This CTexam was performed using one or more of the following dose reduction techniques: automated exposure control, adjustment of the mA and/or kV according to patient size, and/or use of iterative reconstruction technique. COMPARISON: No relevant prior studies available. FINDINGS: BRAIN AND EXTRA-AXIAL SPACES: Brain atrophy is. Areas of decreased attenuationin the deep cerebral white matter are consistent with small vessel ischemic/degenerative changes. No acute intracranial hemorrhage, midline shift ormass effect. If symptoms persist, further evaluation with MRI is recommended. BONES/JOINTS: Unremarkable. No acute fracture. SOFT TISSUES: Unremarkable. SINUSES: Unremarkable as visualized. No acute sinusitis. MASTOID AIR CELLS: Unremarkable as visualized. No mastoid effusion. CT/Brain/Head without Contrast IMPRESSION: 1. Small vessel ischemic/degenerative changes. 2. No acute intracranial hemorrhage, midline shift or mass effect. If symptoms persist, further evaluation with MRI is recommended. Reading Location: [facility] CC: STEVE Sanders; Dr. Austin Perez DO ~ Litigation Attorney: Signed [facility]08-11-2025 Discharge summary Author Austin Perez [facility] Note Date/Time February 27, 2025 12 :07am [facility] Medical Records Department [address] [place] [address] Emergency Department Summary 02/26/25 MR#: [id number] Acct: [id number] Name: ELIS BILLS Rep #:[id number] : 1960 64 From: Austin Perez DO PCP: Anna Sanders PA-C Status:REG ER Location: ED HPI History of Present Illness Chief Complaint: Alt LOC Narrative Narrative: Patient is a 64-year-old male with past medical history of hypertension, hyperlipidemia, GERD who presented to the emergency department chief complaint altered mental status. Per at bedside she states that yesterday evening hehad a fall and notes that tonight he was not acting his normal self. She notes that she was try to get ready for work and he had been complaining that his kneewas bothering him therefore she told him that he should sleep downstairs in the recliner tonight and he said yes that is a good idea. States that when she had to leave he was attempting to go up stairs and was very confused. She states that she then decided to call EMS to have her brought here for further evaluation management. They deny any blood thinning medications [facility] Medical History Hyperlipemia Hypertension GERD (gastroesophageal reflux disease) Home Medications ?Medication ?Instructions ?Recorded ?Last Taken ?Type atorvastatin 80 mg tablet 80 mg PO DAILY 03/22/2211/07 History clopidogrel 75 mg tablet 75 mg PO DAILY 03/22/2211/07 History lisinopril 2.5 mg tablet 2.5 mg PO DAILY 03/22/2211/07 History esomeprazole magnesium 40 mg 40 mg PO DAILY 02/26/25 U nknown History capsule,delayed release folic acid 1 mg tablet 1 mg PO DAILY 02/26/25 Unkno wn History ipratropium 0.5 mg-albuterol 3 mg 3 ml continuous nebu lization Q4H 02/26/25 Unknown History (2.5 mg base)/3 mL nebulization PRN PRN wheezing soln montelukast 10 mg tablet 10 mg PO DAILY 02/26/25 Unkn own History thiamine HCl (vitamin B1) 100 mg 100 mg PO DAILY 02/26 Unknown History tablet umeclidinium 62.5 mcg-vilanterol 1 ea inhalation DAILY 02/26/25 Unknown History 25 mcg/actuation powdr for inhalation (Anoro Ellipta) Allergy/AdvReac Type Severity Reaction Status Date / Time Penicillins (PCN) Allergy Unknown - Verified 02/26/25 20:54 WAS A BABY Social History Smoking Status: Current every day smoker tobacco type: cigarettes ROS ROS ED ROS Narrative Constitutional: Complains of fever denies any headaches, lightheadedness Eyes: Denies double vision blurry vision changes vision Cardiovascular: Denies chest pain Respiratory: Complains of cough denies shortness of breath Abdomen: Denies abdominal pain nausea vomit diarrhea : Denies any urinary symptoms Neurological: Denies any numbness, weakness, tingling Musculoskeletal: Denies any back pain Skin: Denies any rashes or lesions EXAM Physical Exam Narrative Exam Narrative: General: Patient lying in bed did appear to be not feeling well overall Head: atraumatic, normocephalic Eyes: PERRL bilaterally, EOMI Black no conjunctival injection noted Neck: Soft, supple, trachea midline Cardiovascular: Patient tachycardic with a regular rhythm Respiratory: Clear to auscultation bilaterally Abdomen: No tenderness to palpation, soft, nondistended Extremities: Radial pulses +2/4 in the bilateral extremities, +5/5 strength noted in the bilateral upper and lower extremities Neurological: Patient following commands knew that he was at the hospital was confused on the year Skin: Warm, dry, diaphoretic Const Vital Signs: 02/26/25 20:50 02/26/25 20:54 02/26/25 20:59 Temperature 102.7 F H 102.7 F H Temperature Source Oral Oral Pulse Rate 106 H 99 Respiratory Rate 28 H 46 H Respiratory Effort Short of Breath Labored Respiratory Depth Shallow Respiratory Pattern Tachypnea Blood Pressure 154/75 H 142/66 H Blood Pressure Mean 101 91 Pulse Ox 94 96 Oxygen Delivery Method Room Air Room Air Room Air 02/26/25 21:01 02/26/25 21:54 02/26/25 22:00 Temperature 100.2 F H 100.2 F H Temperature Source Oral Oral Pulse Rate 94 91 Respiratory Rate 28 H 27 H Respiratory Effort Respiratory Depth Respiratory Pattern Blood Pressure 139/70 H 139/70 H Blood Pressure Mean 93 93 Pulse Ox 97 94 94 Oxygen Delivery Method Room Air Room Air Room Air 02/26/25 22:59 02/27/25 00:00 Temperature 99.2 F H 98.3 F Temperature Source Oral Oral Pulse Rate 83 80 Respiratory Rate 33 H 16 Respiratory Effort Respiratory Depth Respiratory Pattern Blood Pressure 138/74 H 132/70 H Blood Pressure Mean 95 90 Pulse Ox 100 94 Oxygen Delivery Method Room Air Room Air MDM MDM MDM Narrative Medical decision making narrative: Patient is a 64-year-old male who presents to the emergency department with a chief complaint of altered mental status and not feeling well. On the differential diagnosis includes but not limited to intracranial hemorrhage, pneumonia, pneumothorax, electrolyte abnormality, ACS. Once the workup is obtained and reviewed he will be reevaluated. Patient was given 30 cc/kg bolus of IV fluids based on ideal body weight as he has a BMI of greater than 30 therefore 2500 mL will be given he will be given a gram of Tylenol for his fever. Patient CBC reviewed and showed a leukocytosis of 17,000, hemoglobin 13.1, platelet count 315. Patient's venous blood gas reviewed showed a pH 7.47. Patient sodium was low indicating hyponatremia at 126, anion gap of 18 carbon dioxide low at 18.9. Patient lactic acid was normal less than 1, AST and ALT are 42 and 18 respectively. Patient troponin was 53 delta troponin pending. Patient's EKG reviewed and showed sinus tachycardia with PACs noted with a rate of 105 bpm with evidence of right bundle branch block. Patient's EKG from April 22, 2019 was reviewed which showed evidence of right bundle branch block at that point time as well.. Patient urinalysis reviewed showed negative leukocyte esterase negative nitrites 0-5 white cells with 3+ bacteria this was sent for culture. Patient's chest x-ray was reviewed and showed cardiomegaly with mild congestion. This was reviewed by myself and by radiology. Patient was given vancomycin at 2307 and cefepime at 2307 as well. At 2307 there is still no identifiable source of infection. Patient's abdomen remains benign no tenderness to palpation At this point in time will discuss case with hospitalist for admission for altered mental status, fever, infection of unclear etiology. Discussed case with hospitalist Dr. Oneal who accept patient for admission to the intensive care unit. He is requesting adding CT chest on as well as CT abdomen pelvis with IV contrast, drug screen and alcohol level. These were ordered. Updated the patient and at bedside who is agreeable this plan allquestion concerns answered. Lab Data Labs: Laboratory Results - last 24 hr 02/26/25 02/26/25 02/26/25 20:20 20:55 23:12 WBC 17.4 H RBC 4.39 L Hgb 13.1 Hct 37.2 L MCV 84.7 MCH 29.8 MCHC 35.2 RDW Std Deviation 42.0 RDW Coeff of Carlos 13.4 Plt Count 315 MPV 9.5 Immature Gran % (Auto) 0.700 Neut % (Auto) 87.3 H Lymph % (Auto) 3.9 L Emanuel % (Auto) 7.3 Eos % (Auto) 0.3 Baso % (Auto) 0.5 Absolute Neuts (auto) 15.2 H Absolute Lymphs (auto) 0.68 L Nucleated RBC % 0 PT 15.3 H INR 1.2 APTT 34.5 Sodium 126 L Potassium 4.0 Chloride 90 L Carbon Dioxide 18.9 L Anion Gap 18 H BUN 16 Creatinine 1.19 Estim Creat Clear Calc 78.80 Est GFR (MDRD) Non-Af 68 BUN/Creatinine Ratio 13.5 Glucose 111 H Lactic Acid < 1.0 Calcium 9.3 Total Bilirubin 0.88 AST 42 H ALT 18 Alkaline Phosphatase 110 Troponin T High Sens 53 H Troponin T Hi Sens 2 Hr 49 H Total Protein 7.9 Albumin 4.1 Globulin 3.8 Albumin/Globulin Ratio 1.1 Urine Color Yellow Urine Clarity Clear Urine pH 6.0 Ur Specific [place] 1.020 Urine Protein 100 H Urine Glucose (UA) Normal Urine Ketones 5 H Urine Occult Blood 150 H Urine Nitrite Negative Urine Bilirubin Negative Urine Urobilinogen Normal Ur Leukocyte Esterase Negative Urine RBC 0-5 SEEN Urine WBC 0-5 SEEN Ur Squamous Epith Cells 0-5 SEEN Ur Renal Epithelial Cell 0-5 SEEN Urine Bacteria 3+ Hyaline Casts 5-10 SEEN Fine Granular Casts 10-25 SEEN Urine Mucus 0 SEEN ABG Data ABG results: ABG 02/26/25 22:22 Specimen Type SERGIO Sample Site Not entered O2 % 4.0 VBG pH 7.47 H VBG pO2 68 H VBG HCO3 24 VBG Total CO2 25 VBG O2 Sat (Calc) 95 H VBG Base Excess 0 POC Mix VBG pCO2 Pt Tmp 32.9 L O2 Delivery Device Not entered Radiography Diagnostic Testing: Clinical Impression(s) from Imaging Studies Brain CT 02/26/25 21:30 IMPRESSION: 1. Small vessel ischemic/degenerative changes. 2. No acute intracranial hemorrhage, midline shift or mass effect. If symptoms persist, further evaluation with MRI is recommended. Reading Location: [facility] Cervical Spine CT 02/26/25 21:30 IMPRESSION: No acute fracture. Reading Location: [facility] Knee X-Ray 02/26/25 21:45 IMPRESSION: Degenerative changes as above. Reading Location: [facility] Chest X-Ray 02/26/25 21:47 IMPRESSION: Cardiomegaly with mild congestion. Reading Location: [facility] Discharge Plan Triage Chief Complaint: Alt LOC ED Provider: Austin Perez Dx/Rx/DC Orders Clinical Impression: Fever, Altered mental status, Leukocytosis, Hyponatremia Prescriptions: No Action atorvastatin 80 mg tablet 80 mg PO DAILY clopidogrel 75 mg tablet 75 mg PO DAILY lisinopril 2.5 mg tablet 2.5 mg PO DAILY ipratropium-albuterol 0.5 mg-3 mg(2.5 mg base)/3 mL solution for nebulization 3 ml continuous nebulization Q4H PRN PRN (Reason: wheezing) esomeprazole magnesium 40 mg capsule,delayed release(DR/EC) 40 mg PO DAILY folic acid 1 mg tablet 1 mg PO DAILY thiamine HCl (vitamin B1) 100 mg tablet 100 mg PO DAILY umeclidinium-vilanterol [Anoro Ellipta] 62.5-25 mcg/actuation blister with device 1 ea INHALATION DAILY montelukast 10 mg tablet 10 mg PO DAILY Primary Care Provider: Anna Sanders Referrals: Pilar Lanza DO [Non-Staff] - Print Language: Malian Disposition Disposition: Acute Care Hospital [facility] What to do if you have Problems For any increased pain, shortness of breath, bleeding, nausea or vomiting, chestpain, or any unexpected problems, contact your Primary Care Provider. Call [facility] ([phone]) or report to the closest Emergency Room. Call 911 if necessary. 02/27/25 000 <Electronically signed by Austin Perez DO> Cosigner Signature (if applicable): CC: STEVE Sanders ~ Signed [facility] Work Phone: [phone] 519-605107-17-2025 Telephone encounter Note* Telephone Encounter - Duke Leal - 02/01/2025 3:12 PM EDT Lm on vcml to scheduled PFT [id number] Miscellaneous Notes* Telephone Encounter - Duke Leal - 02/01/2025 3:12 PM EDT Lm on vcml to scheduled PFT * Telephone Encounter - Clemencia Rodriguez - 02/01/2025 2:34 PM EDT Please contact to reschedule PFT appt. documented in this [id number] Telephone encounter Note* Telephone Encounter - Clemencia Rodriguez - 02/01/2025 2:34 PM EDT Please contact to reschedule PFT appt. 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 in [place] (no OV notes available) Per patient and he was struggling on previous breathing regimen and then when he caught a coldfrom his he took a turn for the [...] -- -- 0.07 <0.03 Modified Medical Research [place] (mMRC) dyspnea scale Grade Description of breathlessness [...] + PRN 2L with exertion Occupation/Exposures: Occupation: [employer] Born/raised: [place] Pets: 1 dog Triggers: highlighted if positive [...] - Connective tissue disorders; SLE, Sjogren's, RA, Kremlin's - Iritable bowel disease - Malignancy or [...] (CVX=15) 05/26/2017 Influenza, injectable, quadrivalent, preservative free (LZN=453) 06/04/2017, 04/24/2019 Influenza, injectable, trivalent, preservative free (DTR=761) 06/05/2015, 05/26/2017 Pneumococcal conjugate 13 valent (PCV13) (CRS=713) 06/08/2015, 05/26/2017 Pneumococcal polysaccharide 23 Valent (PPSV23) (CVX=33) 06/04/2017 Tdap (ATG=100) 06/14/2023 Pended Date(s) Pended Pneumococcal conjugate 20 valent (PCV20), polysaccharide EFH877 conjugate, adjuvant, PF (NDT=384) 01/08/2025 Respiratory syncytial virus (RSV), vaccine, bivalent, protein subunit RSV prefusion F, diluent reconstituted, 0.5 mL, preservative free (XUT=394) 01/08/2025 Outpatient Medications: Current Asthma Medications Sympathomimetics Instructions ipratropium-albuterol (DUO-NEB) 0.5-2.5 (3) MG/3ML nebulizer solution Use 3 mL via nebulizer every 4 hours as needed for Wheezing. umeclidinium-vilanterol (ANORO-ELLIPTA) 62.5-25 mcg/inh AEPB inhalation powder Inhale 1 Puff by mouth daily. albuterol (PROVENTIL) (2.5 MG/3ML) 0.083% nebulizer solution Use 2.5 mg via nebulizer every 4 hoursas needed for Wheezing or Shortness of Breath. [...] 263 lb (119.3 kg) SpO2 95% Comment: BMI 39.99 kg/m Physical Exam Vitals and [...] signs of COPD on PFT's completed at [facility] Did not respond well to Dulera [...] to improve, for in-person visit. Veronica Butt APRN.[facility] Department of Pulmonary [facility] Time-based billing justifications: Reviewing (chart, labs, and other clinical notes) Obtaining history (or reviewing separately obtained history) Patient visit (including performing a medically appropriate exam) Counseling/educating the patient/family/caregiver Ordering (medications, tests, procedures - including independent interpretation of results when notreported separately) Charting in [facility] [1] No past medical history on file. [2] No past surgical history on file. [3] No family history on file. [4] Allergies Allergen Reactions Penicillins Roflumilast Rash * Barak Cerrato MA - 01/08/2025 9:49 AM EDT Patient was identified by name and date of . Barak Cerrato MA .Patient at risk for falls:No Falls Risk protocol implemented: N/A documented in this [id number] Telephone encounter Note* Telephone Encounter - Malena Alejandro RN - 12/25/2024 12:01 PM EDT Neurology Clinical Senior Mechanical Project Manager Note Attempted to call patient. LVM to return call to this RN to schedule a neurology appt for JIN with Dr Flannery. Letter sent SUSY Flood, RN, [facility] Senior Mechanical Project Manager, Neurology [id number] Miscellaneous Notes* Telephone Encounter - Malena Alejandro RN - 12/25/2024 12:01 PM EDT Neurology Clinical Senior Mechanical Project Manager Note Attempted to call patient. LVM to return call to this RN to schedule a neurology appt for JIN with Dr Flannery. Letter sent USSY Flood, RN, [facility] Senior Mechanical Project Manager, Neurology documented in this [id number] Hospital Discharge instructions* Discharge Instructions* Prashanth Heaton MD - 12/02/2024 5:47 PM EDT You are leaving against medical advice. You understand and accept that the risks of leaving includeDeath, Permanent disability, Stroke, Paralysis, Loss of limb [...] to follow up in the clinic or withyour doctor. We also encourage you to return to the hospital at any time should you change your mind. * Attachments The following attachments cannot be sent through Care Everywhere. * Headache Discharge Instructions, Adult (Malian) * Risk Factors for Stroke (Malian) documented in this [id number] NotePhysician Triage Note The patient was seen by [...] role in this case. PLEASE SEE OTHER ATTENDING/RESIDENT/PHYSICIAN/PROFESSOR OF MARKETING/PA NOTATION Elvis Rodriguez [facility] Physician Emergency department Note* Elvis Rodriguez MD - 12/02/2024 1:18 PM EDT Physician Triage Note The patient was seen [...] role in this case. PLEASE SEE OTHER ATTENDING/RESIDENT/PHYSICIAN/PROFESSOR OF MARKETING/PA NOTATION Elvis Rodriguez MD [facility] Work Phone: [phone] Emergency department Note* Elvis Rodriguez MD - 12/02/2024 1:18 PM EDT Physician Triage Note The patient was seen [...] role in this case. PLEASE SEE OTHER ATTENDING/RESIDENT/PHYSICIAN/PROFESSOR OF MARKETING/PA NOTATION Elvis Rodriguez MD documented in this [id number] Telephone encounter Note* Telephone Encounter - Brooke Wu RN - 11/24/2024 8:45 AM EDT COPD Care Coordination note: Subjective: I am doing ok Objective: Future Appointments (next 10) Provider Department Center 01/08/2025 10:20 AM (Arrive by 10:10 AM) Veronica Butt APRN-CNP [facility] Pulmonary [facility] 01/18/2025 9:40 AM Anna Sanders PA-C [facility] Called patient who reports: Patient reports [...] prescribed Attend all recommended appointments Brooke Wu Pin Inserter Regulator [phone] Option 3 [id number] Miscellaneous Notes* Telephone Encounter - Brooke Wu RN - 11/24/2024 8:45 AM EDT COPD Care Coordination note: Subjective: I am doing ok Objective: Future Appointments (next 10) Provider Department Center 01/08/2025 10:20 AM (Arrive by 10:10 AM) Veronica Butt APRN-NABOR [facility] Pulmonary [facility] [place] 01/18/2025 9:40 AM Anna Sanders PA-C [facility] Called patient who reports: Patient reports [...] prescribed Attend all recommended appointments Brooke Wu Pin Inserter Regulator [phone] Option 3 documented in this [id number] History of Present illness Narrative* Anna Sanders PA-C - 11/17/2024 2:08 PM EDT Images from the original note were not [...] PCV20 or PCV21) 06/04/2022 COVID-19 Vaccine ( season) Never done Welcome to Medicare Visit [...] Use 2.5 mg via nebulizer every 4 hoursas needed for Wheezing or Shortness of Breath. [...] by mouth daily (30 minutes before breakfast). 30Capsule 3 clopidogrel (Plavix) 75 MG tablet Take [...] right-upper field reveals decreased breath sounds. Examination ofthe left-upper field reveals decreased breath sounds. Examination of the right-middle field revealsdecreased breath sounds. Examination of the left-middle field reveals decreased breath sounds. [place] of the right-lower field reveals decreased breath [...] by mouth daily. Follow up: 2 months * Malena Lewis RN - 11/17/2024 2:05 PM EDT Identification was verified by patient verbalizing his name and date of . documented in this [id number] NoteHNO ID: [id number] Author: VARUN SAHNI, PT Service: ? Author Type: Physical Therapist Type: Progress Notes Filed: 11/16/2024 11:41 Note Text: 11/16/2024 [facility] PHYSICAL THERAPY [...] therapy or scheduled additional follow-up appointments. Varun Sahni, [facility] [place]04-16-2025 Telephone encounter Note * Telephone Encounter - Karthik Fried RT - 11/01/2024 8:26 AM EDT Vijay, The patient has been referred to the pulmonary rehab program. The pulmonary referral that was placed does not have the measurements from the PFT included within it. On the referral it states Patient's Reference Values: No results found for: [id number]. In order to assess whether or not the patient qualifies, we will need these values filled in on the referral. Please consider ordering PFTs forthe patient so that the updated values can be included in the referral. Based on the current referral, the patient will not be added to the workqueue at this time. Thank you. [id number] Miscellaneous Notes* Telephone Encounter - Karthik Fried RT - 11/01/2024 8:26 AM EDT Vijay, The patient has been referred to the pulmonary rehab program. The pulmonary referral that was placed does not have the measurements from the PFT included within it. On the referral it states Patient's Reference Values: No results found for: [id number]. In order to assess whether or not the patient qualifies, we will need these values filled in on the referral. Please consider ordering PFTs forthe patient so that the updated values can be included in the referral. Based on the current referral, the patient will not be added to the workqueue at this time. Thank you. documented in this [id number] NoteTransitional Care Management Contact Initial communication post-discharge: 1st [...] Pharmacy needs: None at this time Reviewed [facility] pharmacy information with patient: No Reviewed follow up appointments/procedures: No Future Appointments (next 10) Provider Department Center 11/17/2024 2:00 PM Anna Sanders PA-C [facility] 01/08/2025 10:20 AM (Arrive by 10:10 AM) Veronica Butt, PROCESS TRAINER-PROFESSOR OF MARKETING [facility] Reviewed need for/follow up on diagnostic tests, referrals, and treatment plans:No Community resources identified for patient/family: No Durable medical equipment ordered: No Education provided to patient/caregiver to support self management, ADL's, etc: Take all medications as prescribed Attend all recommended follow up appointments Follow up with Urgent Care/Express Care/ED should symptoms worsen or not improve Interact with other health home care manager involved in patient care: No Referral to Primary Care Coordination: [facility] Information specific to COPD Lithographic Etcher: Has home oxygen: Yes, 2-4 liters Has [...] oxygen unit is being stored SUSY Hammond, paint grinder stone millPin Inserter Regulator [phone] Telephone encounter Note* Telephone Encounter - Brooke Wu RN - 10/27/2024 12:59 PM EDT Transitional Care Management Contact Initial communication post-discharge: [...] of medication compliance. Patient verbalized understanding and hadno additional questions or concerns at this time. Medication changes: Yes If yes, what are they and does patient understand how and when to take? NA Medication list reviewed with patient: No Medication-related problems: No medication-related issues identified Patient able to obtain prescribed medications per discharge list: No Pharmacy needs: None at this time Reviewed [facility] pharmacy information with patient: No Reviewed follow up appointments/procedures: No Future Appointments (next 10) Provider Department Center 11/17/2024 2:00 PM Anna Sanders PA-C [facility] 01/08/2025 10:20 AM (Arrive by 10:10 AM) Veronica Butt APRN-CNP [facility] Pulmonary [facility] Reviewed need for/follow up on diagnostic tests, referrals, and treatment plans:No Community resources identified for patient/family: No Durable medical equipment ordered: No Education provided to patient/caregiver to support self management, ADL's, etc: Take all medications as prescribed Attend all recommended follow up appointments Follow up with Urgent Care/Express Care/ED should symptoms worsen or not improve Interact with other health home care manager involved in patient care: No Referral to Primary Care Coordination: No Referral to Pan Weber: No Information specific to COPD Lithographic Etcher: Has home oxygen: Yes, 2-4 liters Has [...] oxygen unit is being stored SUSY Hammond, paint grinder stone millPin Inserter Regulator [phone] [id number] Miscellaneous Notes* Telephone Encounter - Brooke Wu RN - 10/27/2024 12:59 PM EDT Transitional Care Management Contact Initial communication post-discharge: [...] of medication compliance. Patient verbalized understanding and hadno additional questions or concerns at this time. Medication changes: Yes If yes, what are they and does patient understand how and when to take? NA Medication list reviewed with patient: No Medication-related problems: No medication-related issues identified Patient able to obtain prescribed medications per discharge list: No Pharmacy needs: None at this time Reviewed [facility] pharmacy information with patient: No Reviewed follow up appointments/procedures: No Future Appointments (next 10) Provider Department Center 11/17/2024 2:00 PM Anna Sanders PA-C [facility] 01/08/2025 10:20 AM (Arrive by 10:10 AM) Veronica Butt, PROCESS TRAINER-PROFESSOR OF MARKETING [facility] Pulmonary [facility] Reviewed need for/follow up on diagnostic tests, referrals, and treatment plans:No Community resources identified for patient/family: No Durable medical equipment ordered: No Education provided to patient/caregiver to support self management, ADL's, etc: Take all medications as prescribed Attend all recommended follow up appointments Follow up with Urgent Care/Express Care/ED should symptoms worsen or not improve Interact with other health home care manager involved in patient care: No Referral to Primary Care Coordination: No Referral to Pan Weber: No Information specific to COPD Lithographic Etcher: Has home oxygen: Yes, 2-4 liters Has [...] oxygen unit is being stored SUSY Hammond, paint grinder stone millPin Inserter Regulator [phone] documented in this [id number] Hospital Discharge instructions* Discharge Instructions* Dhiraj Ron MD - 10/26/2024 3:24 PM EDT Take Anoro-Ellipta inhaler daily and use your albuterol inhaler as needed. You can continue taking your nebulization. Complete your course of prednisone and antibiotics as indicated. We have made followup with [facility] Pulmonary Physicans Also use supplemental oxygen at discharge. documented in this [id number] Plan of care note* Care Plan Note - Aura Wagner MD - 10/26/2024 2:04 PM EDT EXERCISE OXIMETRY: At rest, while breathing ambient [...] lowest SpO2 was 94%. Aura Wagner MD [id number] Miscellaneous Notes* Care Plan Note - Aura Wagner MD - 10/26/2024 2:04 PM EDT EXERCISE OXIMETRY: At rest, while breathing ambient [...] 94%. Aura Wagner MD documented in this [id number] History of Present illness Narrative* Rena Thorne LSW - 10/26/2024 1:54 PM EDT A walking pulse ox needs to be [...] bedside for transport at discharge, please call [employer] at [phone] (Available 08/02). Pt has been cleared to dc home with recs for OP Pulm Rehab. SW will follow for appropriate dc planning. JERRY Norris, SPORTS OFFICIAL Inpatient Tunnel Mucker * Raji Curran MD - 10/24/2024 7:20 PM EDT Images from the original note were not included. [facility] Internal Medicine Assisted Plan Note Elis Bills Age [age] year old male ROOM: [place] [address] Admitted No admission date for patient encounter. Subjective: HPI: Elis Bills is a 64 year old male with PMH of severe persistent asthma, COPD, TUD (5 cig/dsy), AUD (30 beers/week), HTN, HLD, GERD, RUSTAM, spinal stenosis s/p lumbar decompression laminectomy 07/2023, and CVA who presented on 10/24/24 with dyspnea, cough, congestion, and febrile episode (T 102F) thatbegan 3 days prior to arrival. Around a [...] - nicotine patch Remainder of plan per customer success intern note. Raji Curran MD Internal Medicine, PGY-3 Available via Epic Chat documented in this [id number] NoteDISCHARGE [address] [id number] Elis Bills Date of : 1960 64 [...] results when not reported separately) Charting in [facility] Final Diagnosis: COPD exacerbation (HCC) Hospital Problems as of 10/26/2024 * (Principal) COPD exacerbation (HCC) Exacerbation of intermittent asthma, unspecified asthma severity (HCC) Discharge Procedure Orders Pulm Rehab ADT ([id number]) DME WALKER Oxygen Concentrator (Home Oxygen) Portable Gaseous Oxygen System Pulmonary Rehab Service Request Referral Priority: Routine Referral Type: Evaluate and Treat Referral Reason: Evaluation Referral Location: [facility] CARD PULM REHAB Number of Visits Requested: 24 Expiration Date: 10/26/25 Pulmonary COPD Service Request Referral Priority: Routine Referral Type: Service Level Authorization Referral Location: [facility] PULMONARY HV Number of Visits Requested: 3 Expiration Date: 10/26/25 Electrocardiogram (EKG) - In Clinic Future Appointments Date Time Provider Department Center 11/17/2024 2:00 PM Anna Sanders PA-C [facility] 01/08/2025 10:20 AM Veronica Butt APRN-[facility] [place] Condition at Discharge improved Symptoms to look [...] scleral icterus. Heart: RRR. (more content not included)...[email or web address] [id number] Consult note* Karley Jose, PT - 10/26/2024 10:37 AM EDT PHYSICAL THERAPY PROGRESS SUMMARY Patient seen from [...] Dep Max Mod Min CG CS DS ME I Comment Supine to sit x *pt [...] Chair alarm in place d/t falls risk. Callbell and telephone within reach. Patient instructed to [...] including proper height adjustment for once patient assemblesrollator he has at home, how to properly [...] progression of therapeutic activities and gait training basedon clinical/ professional judgement related to patient's performance and response to treatment interventions. Ensured patient safety by providing appropriate level of supervision/ guarding with use of all equipment. Verbal and tactile cues for breathing , rest breaks, posture, safety and guarding was provided as necessary. DME: With Patients permission ordered rollator via [employer] Order. If any questions contact [facility] DME Provider at [phone]. 10/26/2024 6 Clicks Basic Mobility PT Difficulty [...] PLAN: Will follow peripherally 1-2x/wk Karley Jose, SHARAN NA = Not Assessed, I = Independent, ME = Modified Independent, Sup = Supervised, Set up = Physical Assistance for Set-up Only, Min = Minimal Assistance, Mod = Moderate Assistance, Max = Maximal assistance; Dep = Dependent; AROM = Active Range of Motion; PROM = Passive Range of Motion; MMT = Manual Muscle Test [id number] NotePHYSICAL THERAPY PROGRESS SUMMARY Patient seen from 1000 [...] Dep Max Mod Min CG CS DS ME I Comment Supine to sit x *pt [...] DME: With Patients permission ordered rollator via [employer] Order. If any questions contact [facility] DME Provider at [phone]. 10/26/2024 6 Clicks Basic Mobility PT Difficulty [...] home en (more content not included)... [email or web address] [id number] Consult note* Karley Jose, PT - 10/26/2024 10:37 AM EDT PHYSICAL THERAPY PROGRESS SUMMARY Patient seen from [...] Dep Max Mod Min CG CS DS ME I Comment Supine to sit x *pt [...] Chair alarm in place d/t falls risk. Callbell and telephone within reach. Patient instructed to [...] including proper height adjustment for once patient assemblesrollator he has at home, how to properly [...] progression of therapeutic activities and gait training basedon clinical/ professional judgement related to patient's performance and response to treatment interventions. Ensured patient safety by providing appropriate level of supervision/ guarding with use of all equipment. Verbal and tactile cues for breathing , rest breaks, posture, safety and guarding was provided as necessary. DME: With Patients permission ordered rollator via [employer] Order. If any questions contact [facility] DME Provider at [phone]. 10/26/2024 6 Clicks Basic Mobility PT Difficulty [...] NA = Not Assessed, I = Independent, ME = Modified Independent, Sup = Supervised, Set up = Physical Assistance for Set-up Only, Min = Minimal Assistance, Mod = Moderate Assistance, Max = Maximal assistance; Dep = Dependent; AROM = Active Range of Motion; PROM = Passive Range of Motion; MMT = Manual Muscle Test * Rena Thorne LSW - 10/25/2024 12:32 PM EDTAssociated Order(s): IP SOCIAL WORK SERVICE REQUEST SW is aware of consult for substance use resources. Pt declines substance use issues and states he does not need resources. 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 Denies falls or use of assist devices. [...] Dep Max Mod Min CG CS DS ME I Comment Supine<>sit x Sit<>stand x Without [...] the bedside, stated patient does not need chairalarm. 10/25/2024 6 Clicks Basic Mobility PT Difficulty [...] and will continue to benefit from physical therapyin the acute care setting to address impairments listed below. Patient is pleasant and agreeable tocontinued participation in the acute care setting. Patient [...] NA = Not Assessed, I = Independent, ME = Modified Independent, Sup = Supervised, Set up = Physical Assistance for Set-up Only, Min = Minimal Assistance, Mod = Moderate Assistance, Max = Max assistance; Dep = Dependent; AROM = Active Range of Motion; PROM = Passive Range of Motion; MMT = Manual Muscle Test; LE = Lower Extremity documented in this [id number] Consult note* Rena Thorne LSW - 10/25/2024 12:32 PM EDTAssociated Order(s): IP SOCIAL WORK SERVICE REQUEST SW is aware of consult for substance use resources. Pt declines substance use issues and states he does not need resources. 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 Denies falls or use of assist devices. [...] Dep Max Mod Min CG CS DS ME I Comment Supine<>sit x Sit<>stand x Without [...] the bedside, stated patient does not need chairalarm. 10/25/2024 6 Clicks Basic Mobility PT Difficulty [...] and will continue to benefit from physical therapyin the acute care setting to address impairments listed below. Patient is pleasant and agreeable tocontinued participation in the acute care setting. Patient [...] NA = Not Assessed, I = Independent, ME = Modified Independent, Sup = Supervised, Set up = Physical Assistance for Set-up Only, Min = Minimal Assistance, Mod = Moderate Assistance, Max = Max assistance; Dep = Dependent; AROM = Active Range of Motion; PROM = Passive Range of Motion; MMT = Manual Muscle Test; LE = Lower Extremity [id number] NotePHYSICAL THERAPY ACUTE EVALUATION Referral received, chart reviewed. 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 Denies falls or use of assist devices. [...] Dep Max Mod Min CG CS DS ME I Comment Supine<>sit x Sit<>stand x Without [...] NA = Not Assessed, I = Independent, ME = Modified Independent, Sup = Supervised, Set up = Physical Assistance for Set-up Only, Min = Minimal Assistance, Mod = Moderate Assistance, Max = Max assistance; Dep = Dependent; AROM = Active Range of Motion; PROM = Passive Range of Motion; MMT = Manual Muscle Test; LE = Lower ExtremityThe [email or web address] [id number] History and physical note* Aura Wagner MD - 10/25/2024 9:13 AM EDT Stepdown Unit ATTENDING NOTE AURA WAGNER MD - PIN [id number] I saw and evaluated the patient. I personally obtained the flowers and critical portions of the historyand physical examination. I reviewed the resident's documentation and discussed the patient with the resident. I agree with the resident's medical decision making as documented in the resident's note. This patient has a high probability of sudden, clinically significant deterioration, which requiresthe highest level of physician preparedness to intervene [...] (P2 occlusion 2018, on plavix), GERD, HLD, lumbarlaminectomy (07/2024) presenting with shortness of breath. Patient reported fever at home. Patient initially requited rescue BPAP. [facility] and [facility]nic respiratory failure due [...] MD Pulmonary, Critical Care and Sleep Medicine [facility] [id number] History and physical note* Aura Wagner MD - 10/25/2024 9:13 AM EDT Stepdown Unit ATTENDING NOTE AURA WAGNER MD - PIN [id number] I saw and evaluated the patient. I personally obtained the flowers and critical portions of the historyand physical examination. I reviewed the resident's documentation and discussed the patient with the resident. I agree with the resident's medical decision making as documented in the resident's note. This patient has a high probability of sudden, clinically significant deterioration, which requiresthe highest level of physician preparedness to intervene [...] (P2 occlusion 2018, on plavix), GERD, HLD, lumbarlaminectomy (07/2024) presenting with shortness of breath. Patient reported fever at home. Patient initially requited rescue BPAP. [facility] and hypercapnic respiratory failure due [...] MD Pulmonary, Critical Care and Sleep Medicine [facility] * Valentina Dumont MD - 10/25/2024 2:21 AM EDT Images from the original note were not included. [facility] Step Down Unit - H&P Elis Bills Age [age] year old male ROOM: [place] [address] Admitted 10/24/2024 7:57 PM Hospital Day: 2 [...] breath. He started to feel SOB in [place]. Went home and used pulse [...] of him. States he was febrile to 102at home. Had some steroids at home from [...] 3.92 FEF50/FIF50 0.41 90-100 FIVC (L) 2.62 QHN41-75 (L/sec) 0.90 1.20 2.56 4.44 35 Time [...] trapping, normal TLC. Normal FEV1/FVC but low [id number]. Chest CT with multiple sub<6mm lung nodules. No mediastinal LAD. Airway wall thickening. 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 [facility] Step Down Unit - H&P Elis Bills Age [age] year old male ROOM: [place] [address] Admitted 10/24/2024 7:57 PM Hospital Day: 2 [...] breath. He started to feel SOB [place]. Went home and used pulse [...] breath is worse laying down and with exert ion. Sleeps at incline and can't lay flat. Endorses weight loss since back surgery in Jul. No nausea, vomiting, chest pain. He endorses worse cough with brown sputum which is not typical of him. States he was febrile to 102at home. Had some steroids at home from [...] 3.92 FEF50/FIF50 0.41 90-100 FIVC (L) 2.62 KFN95-58 (L/sec) 0.90 1.20 2.56 4.44 35 Time [...] trapping, normal TLC. Normal FEV1/FVC but low [id number]. Chest CT with multiple sub<6mm lung nodules. No mediastinal LAD. Airway wall thickening. 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 - CTX/azithro - [...] PGY1, Internal Medicine Preliminary Stepdown Unit Pager [phone] [id number] (AGENT OF COVID-19) RNA: Not detected INFLUENZA A RNA: Not detected INFLUENZA B RNA: Not detected RESPIRATORY SYNCYTIAL VIRUS (RSV) RNA: Not detectedStephens Memorial HospitalComment on above:Performed By: #### [id number] #### [facility] [place] [id number] [address] [place] [address] OF [id number] History of Present illness Narrative* Varun Sahni, PT - 09/12/2024 9:11 AM EST Program_ID:[id number] Access Code: [email or web address] URL: [email or web address] Date: 09-12-2024 Prepared By: Varun Sahni Program Notes Exercises - Supine Transversus Abdominis [...] 10 reps - Seated Flexion Stretch with South Korean Ball - 2 x daily - 7 x weekly - 2 sets - 10 reps - Seated Thoracic Flexion and Rotation with [place] Ball - 2 x daily - 7 x weekly - 2 sets - 10 reps * Varun Sahni, PT - 09/12/2024 8:27 AM EST Images from the original note were not included. Episode Visit Count: 1 Therapist That Will Accept/Oversee The Plan Of Care: Varun Sahni PT. Start of Care Date: 09/12/24 Onset [...] services to meet the goals established for thisplan of care as noted below. Goals for Episode of Care: established 09/12/24 Teller in home exercise program. Restore pain-free lumbar [...] Planned: 4 Planned Treatment Interventions: Therapeutic exercise (51738), Neuromuscular re- education (56146), Manual therapy (79882), Therapeutic activities (41950), Self- fdc management (22528), Patient/Family/Caregiver Education, Body Mechanics Training PLAN FOR [...] straight. Has been picking up 80-90# without issueto load something into vehicle. Patient Goals: Help [...] Lumbar Extension: Minimal limitation Lumbar R Side Primrose: Minimal limitation Lumbar L Side Primrose: Minimal limitation Lumbar R Side-Bend: Minimal limitation [...] *Seated Pallof: 1x10 each, GTB. 5: *Seated cypriot ball flexion rollouts: x10. (discussed computer chair use at home) 6: *Seated cypriot ball flexion+rotation rollouts: x10 each way (discussed [...] 828 Session Stop Time : 913 Varun Sahni PT, DPT. documented in this encounterSub[facility]25 NoteHNO ID: [id number] Author: VARUN SAHNI PT Service: ? Author Type: Physical Therapist Type: Progress Notes Filed: 09/12/2024 12:56 Note Text: Episode Visit Count: 1 Therapist That Will Accept/Oversee The Plan Of Care: Varun Sahni PT. Start of Care Date: 09/12/24 Onset [...] Goals for Episode of Care: established 09/12/24 Teller in home exercise program. Restore pain-free lumbar [...] Planned: 4 Planned Treatment Interventions: Therapeutic exercise (45641), Neuromuscular re-education (92159), Manual therapy (88400), Therapeutic activities (14292), Self-fdc management (51746), Patient/Family/Caregiver Education, Body Mechanics Training PLAN FOR [...] the general population. Hi (more content not included)...[facility]02-18-2025 Telephone encounter Note* Telephone Encounter - Brooke Barber - 09/05/2024 8:15 AM EST LVM that appt for 09/18/24 has been cancelled due to not needing appt on 09/18/24 and again on 10/19/24. Told patient to call office if he has any questions regarding the cancelled appt on 09/18/24. [facility]02-18-2025 Miscellaneous Notes* Telephone Encounter - Brooke Barber - 09/05/2024 8:15 AM EST LVM that appt for 09/18/24 has been cancelled due to not needing appt on 09/18/24 and again on 10/19/24. Told patient to call office if he has any questions regarding the cancelled appt on 09/18/24. documented in this encounterSub[facility] Telephone encounter Note * Telephone Encounter - Puma Nicolas MA - 08/28/2024 2:37 PM EST Referral placed for physical therapy in the [facility] Internal Referral Portal. Confirmation # [id number] Puma Nicolas Ma [facility]02-10-2025 Miscellaneous Notes* Telephone Encounter - Puma Nicolas MA - 08/28/2024 2:37 PM EST Referral placed for physical therapy in the [facility] Internal Referral Portal. Confirmation # [id number] Puma Nicolas Ma documented in this encounterSub[facility]01-[facility] History of Present illness Narrative* Lois Hoang MD - 08/10/2024 1:00 PM EST NEUROSURGERY POST-OP NOTE Lois Hoang MD [facility] Date of visit: August 10, 2024 Patient Name: Mr.Donald Tim Bills Date of : 1960 Current Age: [age] year old Sex: male MRN/E# [id number] Last Office Visit: 08/02/2024 SURGERY: L1 decompression laminectomy - 07/28/2024 Pre-Surgical Symptoms: right low back pain Past Medical/Surgical History: Elis Bills is a 63 year old male who is referred by Bertha Kaur APRN, CNP with pain management for neurosurgical evaluation. The patient has a history of COPD, hypercholesterolemia, stroke. +NICOTINE HPI: Patient is having their 2 week post operative visit. Mr. Bills was seen last in the office on 06/05/2024 for right sided low back pain and imaging revealed a significant amount of epidural lipomatosis causing severe stenosis at L2-3 and L3-4. He alsohad retrolisthesis at L4 over L5 and likely [...] history were reviewed, confirmed, and updated as necessary:allergies, current medications, past family history, past medical history, past social history, past surgical history, problem list, HPI, and ROS obtained by others. Some elements may be copied from a previous office note and have been reviewed/updated where appropriate. All portions reflect current medical decision making from today. The clinical and radiographic findings as well as the risks, benefits and alternatives of treatmenthave been reviewed in detail with the patient. Advised to call the office if symptoms worsen or new symptoms develop. Patient expressed understanding and is in agreement with plan. Lois Hoang MD [facility] This note was partially generated using [email or web address] voice recognition system, and there may be some incorrect words, spellings, and punctuation that were not noted in checking the note before saving. documented in this encounterSub[facility]01-23-2025 NoteHNO ID: [id number] Author: LOIS HOANG MD Service: ? Author Type: Physician Type: Progress Notes Filed: 08/10/2024 13:30 Note Text: NEUROSURGERY POST-OP NOTE Lois Hoang MD [facility] Date of visit: August 10, 2024 Patient Name: Mr.Donald Tim Bills Date of : 1960 Current Age: [age] year old Sex: male MRN/E# [id number] Last Office Visit: 08/02/2024 SURGERY: L1 decompression laminectomy - 07/28/2024 Pre-Surgical Symptoms: right low back pain Past Medical/Surgical History: Elis Bills is a 63 year old male who is referred by Bertha Kaur APRN, CNP with pain management for neurosurgical [...] STUDIES: No new angelica (more content not included)...[facility]01-15-2025 Telephone encounter Note* Telephone Encounter - Helen Sanchez MA - 08/02/2024 12:49 PM EST Patient phones requesting refills as follows: Requested Prescriptions Pending Prescriptions Disp Refills oxyCODONE IR (ROXICODONE) 5 mg immediate release tablet 9 tablet 0 Sig: Take 1 tablet by mouth every 8 hours as needed for up to 3 days. Please review and advise. Helen Sanchez MA [facility]01-15-2025 Miscellaneous Notes* Telephone Encounter - Helen Sanchez MA - 08/02/2024 12:49 PM EST Patient phones requesting refills as follows: Requested Prescriptions Pending Prescriptions Disp Refills oxyCODONE IR (ROXICODONE) 5 mg immediate release tablet 9 tablet 0 Sig: Take 1 tablet by mouth every 8 hours as needed for up to 3 days. Please review and advise. Helen Sanchez MA documented in this encounterSuburban [facility] Hospital [facility]01-11-2025 NoteHNO ID: [id number] Author: SINGH MANLEY PA-C Service: Hospital Medicine Author Type: Physician Clinic Lpn Type: Plan of Care Filed: 07/29/2024 05:08 Note Text: This STEVE was notified about patient's sodium lvl of 121 by RN. Serum Osm 270. Random Na <20. Urine Osm 368. Consulted Nephrology due to decreasing NA lvls. [facility]01-10-2025 NoteHNO ID: [id number] Author: INGE OCONNOR APRN.MID LEVEL PRACTITIONER Service: Anesthesiology Author Type: Nurse Top Lift Compressor Type: Anesthesia Procedure Notes Filed: 07/28/2024 12:07 Note Text: ANESTHESIOLOGY PROCEDURE NOTE Airway General Information Procedure Start Time/Medication Administration: 07/28/2024 12:03 PM Procedure End Time: 07/28/2024 12:03 PM Patient location during procedure: OR Timeout Performed Pre-procedure: timeout performed Consent Obtained: Yes Patient identity confirmed: arm band, care steamship agent and patient sedated or unresponsive Staffing MID LEVEL PRACTITIONER: Inge Oconnor APRN.MID LEVEL PRACTITIONER Performed by: VIVEK Indications and Patient Condition Indications for airway [...] intubation: no Airway not difficult SIGNATURE: Inge Oconnor APRN.CRNA PATIENT NAME: Elis Bills DATE: July 28, 2024 TIME: 12:06 PM CSN: [id number]01-10-2025 NoteHNO ID: [id number] Author: KYLIE MALDONADO RN Service: Nursing Author Type: Registered Nurse Type: Nursing Progress Note Filed: 07/28/2024 09:50 Note Text: Dr. Grajeda notified: pt chewing nicorette gum, discarded at 0935.[facility]01-09-2025 Telephone encounter Note* Telephone Encounter - Stephane Bazan - 07/27/2024 9:21 AM EST Contacted patient to remind them of their arrival time for surgery with Dr. Lois Hoang on 07/28/24. Patient is to arrive at [facility] at 8:30am for surgery at 10:30am. Spoke with patient and they are aware of all arrival information. [facility]01-09-2025 Miscellaneous Notes* Telephone Encounter - Stephane Bazan - 07/27/2024 9:21 AM EST Contacted patient to remind them of their arrival time for surgery with Dr. Lois Hoang on 07/28/24. Patient is to arrive at [facility] at 8:30am for surgery at 10:30am. Spoke with patient and they are aware of all arrival information. documented in this encounterSuburban [facility]01-03-2025 Telephone encounter Note * Telephone Encounter - Dalia Merritt - 07/21/2024 12:50 PM EST Completed/signed form faxed back to Dr. Hoang's office. Dalia Merritt [facility]01-03-2025 Miscellaneous Notes* Telephone Encounter - Dalia Merritt - 07/21/2024 12:50 PM EST Completed/signed form faxed back to Dr. Hoang's office. Dalia Merritt * Telephone Encounter - Dalia Merritt - 07/20/2024 3:44 PM EST Type of form: Medical clearance for L2-L4 Laminectomy DOS: 07/28/24 TIMO Form received via fax When form is completed, Fax form to [phone] Form has been forwarded to Physician Mailbox: Dr. Vu Merritt documented in this encounterSuburban [facility]01-02-2025 Telephone encounter Note * Telephone Encounter - Dalia Merritt - 07/20/2024 3:44 PM EST Type of form: Medical clearance for L2-L4 Laminectomy DOS: 07/28/24 TIMO Form received via fax When form is completed, Fax form to [phone] Form has been forwarded to Physician Mailbox: Dr. Vu Merritt [facility]12-30-2024 Telephone encounter Note* Telephone Encounter - Lois Hoang MD - 07/17/2024 9:56 AM EST Sounds good thank you. [facility] Work Phone: 1(448) 997-788112-30-2024 Miscellaneous Notes* Telephone Encounter - Lois Hoang MD - 07/17/2024 9:56 AM EST Sounds good thank you. documented in this encounterSuburban [facility] Hospital [facility]12-27-2024 NoteHNO ID: [id number] Author: HARVEY PURVIS APRN.PROFESSOR OF MARKETING Service: Anesthesiology Author Type: Nurse Practitioner Type: Progress Notes Filed: 07/14/2024 14:48 Note Text: Summary: PAT CC ROMÁN Please review ECG with Anesthesia if needed and see if pulmonary optimization needed before the surgery. Surgery scheduled 07/28/[address] Hoang under general anesthesia. METS - 5.5 Had [...] DOS. Follows by Pulmonology - last OV 4/25/24 Hyperlipidemia Stable on Statin - instructed to [...] up a hill (5.50 METs) [facility]: [facility] History of Present illness Narrative* Sarita Reyes RT(Yareli) - 07/14/2024 2:00 PM EST Radiology Service Progress Note PATIENT NAME: Elis Bills DATE OF SERVICE: July 14, 2024 TIME: 1:59 PM PATIENT IDENTITY VERIFICATION COMPLETED USING TWO (2) IDENTIFIERS: Name and Date of confirmedby patient verbally and Name and Date of confirmed by identification band. FALL SCREENING: Has the patient had 2 falls in the last year or 1 fall with injury or currently using an Ambulatory Assistive Device (Walker, Cane, Wheelchair, Crutches, etc.)? No PATIENT GENDER DATA: Male PATIENT RELEVANT IMPLANT DATA REVIEWED: Not Applicable PATIENT PRESENTS WITH AN IMPLANTABLE OR ATTACHED RDA: No RADIOLOGY DEPARTMENT: General X-ray: Exam(s) Completed: Chest X-Ray PERIPHERAL IV DATA: Not applicable SIGNED BY: RT Jesus Alberto(Yareli) July 14, 2024 1:59 PM documented in this encounterSuburban Community Hospital [facility]12-27-2024 NoteHNO ID: [id number] Author: SARITA REYES RT(Yareli) Service: Radiology Author [...] PATIENT PRESENTS WITH AN IMPLANTABLE OR ATTACHED RDA: No RADIOLOGY DEPARTMENT: General X-ray: Exam(s) Completed: Chest X-Ray PERIPHERAL IV DATA: Not applicable SIGNED BY: Sarita Reyes, RT(R) July 14, 2024 1:59 [facility]12-27-2024 History and physical note* Harvey Purvis APRN.PROFESSOR OF MARKETING - 07/14/2024 1:00 PM EST Images from the original note were not included. [place] [facility]Anesthesia Consultation [facility] HISTORY AND PHYSICAL EXAMINATION SERVICE DATE: 07/14/2024 SERVICE TIME: 2:48 PM PRIMARY CARE PHYSICIAN: Pilar Lanza DO Assessment Patient has the following medical [...] at this time: primary care/internal medicine (in [facility]). Planned Anesthetic: general The Following Tests/Procedures Have Been Initiated: Orders Placed This Encounter Confirm Blood Type Standing Status: Future Number of Occurrences: 1 Standing Expiration Date: 10/13/2024 Order Specific Question: Did Blood Bank direct you to place this order: Answer: No - Presurgical Workflow [employer] 160-9-4.8 mcg/actuation HFA aerosol inhaler Sig: INHALE [...] agrees to surgical intervention. Risk and benefits discussedby surgeon. Patient denies any other problems or [...] fibrillation, CAD, chest pain, DVT/PE and recent ME. GI: Positive for: GERD Negative for: abdominal [...] and morbidly obese. Pertinent negatives noted - notdistressed. Skin: normal color, no rash or lesions. [...] 450 QTC Calculation (Bazett) 482 Calculated P [place] -13 Calculated R [place] 78 Calculated T [place] 24 Impression SINUS RHYTHM WITH PREMATURE SUPRAVENTRICULAR COMPLEXES RIGHT BUNDLE BRANCH BLOCK ABNORMAL ECG NO PREVIOUS ECGS AVAILABLE Confirmed by MD ERICK, DEANN ([id number]) on 12/03/2023 4:27:07 PM Recent Results (from the past 83365 hour(s)) ECHO Collection Time: 12/29/23 10:25 AM [...] which included preparing to see the patient, taez-to-gkls patient care, completing clinical documentation, obtaining and/or reviewing separately obtained history, performing a medically appropriate examination, counseling and educating the pat ient/family/caregiver, and ordering medications, tests, or procedures. SIGNATURE: Harvey Purvis APRN.CNP PATIENT NAME: Elis Bills DATE: July 14, 2024 TIME: 12:50 PM PAGER/CONTACT #: [facility]12[facility]27[facility]24 History and physical note* Harvey Purvis APRN.CNP - 07/14/2024 1:00 PM EST Images from the original note were not included. [facility] HISTORY AND PHYSICAL EXAMINATION SERVICE DATE: 07/14/2024 SERVICE TIME: 2:48 PM PRIMARY CARE PHYSICIAN: Pilar Lanza DO Assessment Patient has the following medical [...] at this time: primary care/internal medicine (in [facility]). Planned Anesthetic: general The Following Tests/Procedures Have Been Initiated: Orders Placed This Encounter Confirm Blood Type Standing Status: Future Number of Occurrences: 1 Standing Expiration Date: 10/13/2024 Order Specific Question: Did Blood Bank direct you to place this order: Answer: No - Presurgical Workflow [email or web address] CLINIC HILLCREST HOSPITALWatcher Enterprises 160-9-4.8 mcg/actuation HFA aerosol inhaler Sig: INHALE [...] agrees to surgical intervention. Risk and benefits discussedby surgeon. Patient denies any other problems or [...] fibrillation, CAD, chest pain, DVT/PE and recent ME. GI: Positive for: GERD Negative for: abdominal [...] See Comments Respiratory distress as a baby Anibal [Roflumila* Rash Objective PHYSICAL EXAM: General: alert and oriented, healthy appearance and morbidly obese. Pertinent negatives noted - notdistressed. Skin: normal color, no rash or lesions. [...] 450 QTC Calculation (Bazett) 482 Calculated P [place] -13 Calculated R [place] 78 Calculated T [place] 24 Impression SINUS RHYTHM WITH PREMATURE SUPRAVENTRICULAR COMPLEXES RIGHT BUNDLE BRANCH BLOCK ABNORMAL ECG NO PREVIOUS ECGS AVAILABLE Confirmed by MD ERICK, DEANN ([id number]) on 12/03/2023 4:27:07 PM Recent Results (from the past 91612 hour(s)) ECHO Collection Time: 12/29/23 10:25 AM [...] which included preparing to see the patient, yicc-lk-byir patient care, completing clinical documentation, obtaining and/or reviewing separately obtained history, performing a medically appropriate examination, counseling and educating the pat ient/family/caregiver, and ordering medications, tests, or procedures. SIGNATURE: Harvey Purvis APRN.CNP PATIENT NAME: Elis Bills DATE: July 14, 2024 TIME: 12:50 PM PAGER/CONTACT #: documented in this encounterSuburban Community Hospital [facility]12-23-2024 Instructions* Patient Instructions* Harvey Purvis APRN.CNP - 07/10/2024 12:50 PM EST PATIENT PREOPERATIVE INSTRUCTIONS Your surgeon has scheduled for your procedure at this surgery center: [facility]: [phone], [address] [id number] Please read below carefully for your personalized instructions. Surgery Date:07/28/2024 Your surgeon's office will provide you with your ARRIVAL TIME for surgery. - If you have not received an arrival time by the afternoon before your surgery date, please followup with your surgeon's office. - If you are scheduled for Wednesday surgery, please make sure you have your arrival time by Wednesday afternoon. - Please be aware that emergency situations arise, which may delay or change your surgical time. Ifthis happens, your surgeon's office will notify you [...] Mobic, etc.) 7 days before surgery, or asdirected by your surgeon. You may take Tylenol (Acetaminophen) or any of your pain medications that do not contain aspirin orNSAIDS as needed. IF YOU TAKE ANY OF [...] are prescribed Marinol or any other prescription formon marijuana or CBD. Medications: Pre Surgery Med [...] surgery. - YOU MUST HAVE A RESPONSIBLE MANAGER TRAINEE TAKE YOU HOME. A EXTENSION EDGER, CAB OR UBER MANAGER TRAINEE CANNOT BE MADEA RESPONSIBLE MANAGER TRAINEE. - If you are undergoing an outpatient [...] date of surgery. Visitation: Visitors to any [facility] facility: Any individual who is sick should not visit. Visitors to patients with COVID-19 must follow these guidelines, which include wearing a mask, eye protection, gown and gloves. [facility] [place] Visitation hours: 7 AM to 9 PM. Pre-Surgery Unit - Patients may have up to 2 visitors at a time. PACU recovery Unit - Patients may have up to 1-2 visitors at a time. [facility] [place] Pre-Surgery area - 1 visitor at a [...] Advance Directive, please fax a copy to [phone] or email to for it to be added to your chart. If you do not have an Advance Directive, you can find the appropriate form and more information at [email or web address]. We recommend that youcomplete the Advance Directive form found on the website and bring it with you the day of your surgery. It can be witnessed and scanned into your chart that day. IF you are having a TOTAL KNEE, HIP REPLACEMENT OR ORTHOPEDIC SURGERY: - Orthopedic patients at [facility] listed as outpatient, please bring walker into the building. - Orthopedic patients at [facility] listed as to be admitted, please leave walkers in the car or with a family member. - Orthopedic patients at [facility] in [place], please bring the walker into the building [...] to the body areas that have been cleanedwith Hibiclens. Do not use Hibiclens: - If you are allergic to Chlorhexidine gluconate or any other ingredient in this preparation - In contact with the meninges - In the genital area - On wounds that involve more than the superficial layers of the skin Please review Hibiclens pamphlet prior to use. Harvey Purvis APRN.CNP 07/14/24 documented in this encounterSuburban [facility]12-04-2024 Telephone encounter Note * Telephone Encounter - Stephane Bazan - 06/21/2024 11:48 AM EST Patient returned my call. Discussed all surgery details. Answered all questions. [facility]12-04-2024 Miscellaneous Notes* Telephone Encounter - Stephane Bazan - 06/21/2024 11:48 AM EST Patient returned my call. Discussed all surgery details. Answered all questions. * Telephone Encounter - Stephane Bazan - 06/21/2024 9:18 AM EST Attempted to contact patient to discuss surgery details. No answer and VM box full. Unable to leavea voice message documented in this encounterSuburban [facility]12-04-2024 Telephone encounter Note * Telephone Encounter - Stephane Bazan - 06/21/2024 9:18 AM EST Attempted to contact patient to discuss surgery details. No answer and VM box full. Unable to leavea voice message [facility]11-21-2024 Telephone encounter Note* Telephone Encounter - Dalia Merritt - 06/08/2024 12:19 PM EST Nebulizer orders signed & faxed back to [employer]. Dalia Merritt [facility]11-21-2024 Miscellaneous Notes* Telephone Encounter - Dalia Merritt - 06/08/2024 12:19 PM EST Nebulizer orders signed & faxed back to [employer]. Dalia Merritt documented in this encounterSuburban Community Hospital & [facility]11-21-2024 History of Present illness Narrative* Ermias Jane RT(Yareli) - 06/08/2024 8:00 AM EST Radiology Service Progress Note PATIENT NAME: Elis Bills DATE OF SERVICE: June 08, 2024 TIME: 11:03 AM PATIENT IDENTITY VERIFICATION COMPLETED USING TWO (2) IDENTIFIERS: Name and Date of confirmedby patient verbally. FALL SCREENING: Has the patient had 2 falls in the last year or 1 fall with injury or currently using an Ambulatory Assistive Device (Walker, Cane, Wheelchair, Crutches, etc.)? No PATIENT GENDER DATA: Male PATIENT RELEVANT IMPLANT DATA REVIEWED: Yes PATIENT PRESENTS WITH AN IMPLANTABLE OR ATTACHED RDA: No RADIOLOGY DEPARTMENT: CT; Exam(s) Completed: Chest PERIPHERAL IV DATA: Not applicable SIGNED BY: RT Fernando(Yareli) June 08, 2024 11:03 AM documented in this encounterSuburban Community Hospital & [facility]11-21-2024 NoteHNO ID: [id number] Author: ERMIAS JANE RT(Yareli) Service: ? Author Type: Bench Assembler Operator Type: Progress Notes Filed: 06/08/2024 11:03 Note [...] PATIENT PRESENTS WITH AN IMPLANTABLE OR ATTACHED RDA: No RADIOLOGY DEPARTMENT: CT; Exam(s) Completed: Chest PERIPHERAL IV DATA: Not applicable SIGNED BY: RT Fernando(Yareli) June 08, 2024 11:03 [facility]11-18-2024 History of Present illness Narrative* Lois Hoang MD - 06/05/2024 9:15 AM EST Images from the original note were not included. NEUROSURGERY FOLLOW UP OFFICE NOTE Lois Hoang MD [facility] Date of visit: June 05, 2024 Patient Name: Mr.Donald Tim Bills Date of : 1960 Current Age: [age] year old Sex: male MRN/E# [id number] Last Office Visit: 04/06/2024 Chief Complaint: Patient presents with: Established Patient Past Medical/Surgical History: Elis Bills is a 63 year old male who is referred by Bertha Kaur APRN, CNP with pain management for neurosurgical [...] 4 to 5 months ago so the fracturewas likely healed. His MRI also showed significant amount of epidural lipomatosis causing severe stenosis at L2- 3 and L3-4. He also had retrolisthesis at [...] guidance to whether or not surgery would benefithim. He was to follow-up in a couple of months with flexion- extension x-rays for reevaluation prompting his visit today. The patient presents to the office today with continued right low back pain following the ablation.He got about a week of some relief following the ablation but the pain has returned and is the sameintensity as before. He denies leg pain, paresthesia, [...] history were reviewed, confirmed, and updated as necessary:allergies, current medications, past family history, past medical history, past social history, past surgical history, problem list, HPI, and ROS obtained by others. Some elements may be copied from a previous office note and have been reviewed/updated where appropriate. All portions reflect current medical decision making from today. The clinical and radiographic findings as well as the risks, benefits and alternatives of treatmenthave been reviewed in detail with the patient. Advised to call the office if symptoms worsen or new symptoms develop. Patient expressed understanding and is in agreement with plan. Lois Hoang MD [facility] Medical Decision Making: Problems: Moderate: 2+ stable chronic illnesses Data: Unique source(s) for external note(s) reviewed: 1 Unique test result(s) reviewed: 2 Risk: High: High risk from testing/treatment Medical Decision Making Level: 4 - Moderate This note was partially generated using [email or web address] voice recognition system, and there may be some incorrect words, spellings, and punctuation that were not noted in checking the note before saving. documented in this encounterSuburban Community Hospital & [facility]wood [facility] NoteHNO ID: [id number] Author: LOIS HOANG MD Service: ? Author Type: Physician Type: Progress Notes Filed: 06/05/2024 10:19 Note Text: NEUROSURGERY FOLLOW UP OFFICE NOTE Lois Hoang MD [facility] Date of visit: June 05, 2024 Patient Name: Mr.Donald Tim Bills Date of : 1960 Current Age: [age] year old Sex: male MRN/E# [id number] Last Office Visit: 04/06/2024 Chief Complaint: Patient presents with: Established Patient Past Medical/Surgical History: Elis Bills is a 63 year old male who is referred by Bertha Kaur APRN, CNP with pain management for neurosurgical [...] polydipsia, polyphagia and polyu (more content not included)...[facility]11-13-2024 Telephone encounter Note* Telephone Encounter - Dalia Merritt - 05/31/2024 12:24 PM EST Nebulizer order signed & faxed back to [facility]. Dalia Merritt [facility]11-13-2024 Miscellaneous Notes* Telephone Encounter - Dalia Merritt - 05/31/2024 12:24 PM EST Nebulizer order signed & faxed back to [facility]. Dalia Merritt documented [facility] History of Present illness Narrative* Bertha Kaur APRN.CNP - 05/11/2024 3:15 PM EDT Images from the original note were not included. Called pt and Cancelled Appt VIRTUAL VISIT PROGRESS NOTE This is a virtual visit using [employer] Zoom Video Visit. It required patient- provider interaction for the medical decision making as documented below. I have communicated my name and active licensure. The patient's identity and physical location wereverified at the time of this visit. Either the patient or their legal retail sales representative has been informed of the risks and benefits of -- and alternatives to -- treatment through a remote evaluation andconsents to proceed with the evaluation remotely. [facility] Today's Date: 05/11/2024 Name: Elis [...] via Zoom, Phone and/or MyChart. It required patient- provider interaction for the medical decision making as documented below. Patient understands that privacy cannot be guaranteed. Note: Examination was limited today due to this being a virtual/telemedicine encounter Plan at last visit: (Seen on 04/27/2024 by Bertha Kaur CNP) PLAN: Elis Bills would benefit from the following to reach personal goals for decreasing pain, improving function and work participation, and/or improving quality of life: Medications: Requested Prescriptions No prescriptions requested or ordered in this encounter Interventional Procedures: Radiofrequency Ablation (Thermal RFA) - Lumbar Medial Branches under fluoroscopic guidance BILATERAL SIDES at L3-4 and L4-5 Jira Developer Needed: Radiofrequency Ablation - YES Anticoagulant - Hold Needed: NO HOLD REQUIRED FOR THIS PROCEDURE Anticoagulant - Currently Taking: None, Plavix (7 days when hold needed) Allergies (relevant): None Scheduling - Mobility (Can Patient independently transfer on/off an OR or Procedure table?): YES (May schedule at any location) Scheduling - Additional Info: None Studies: None Functional Pentecostal: NONE Referrals: No additional considerations at present [...] injection. This is the second in a seriesof 2 medial branch nerve blocks. Patient stating [...] 09/22/2023 - Initial HPI (Obtained by Bertha Kaur CNP). DURATION AND ONSET: The pain complaint [...] back pain without radicular symptoms. Patient stating thathe has had an x-ray of his lumbar spine but no MRI. Patient stating that he has had an injection into his low back, with no relief. Patient states he did not care for the explanation of the next planof care from this provider and so he is changing pain management. Patient has done recent physical therapy. 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 No [...] and assume there are 5 lumbar-type vertebrae. Litigation Attorney: PSCB Transcribe Date/Time: Nov 19 2023 3:30P [...] or double vision) Respiratory: Negative (No Cough, Lgihvntkq-yh-xybydo, Dyspnea on exertion, wheezing) Cardiovascular: Negative (No Chest Pain, Tightness, Pressure, Palpitations) Gastrointestinal: Negative (No Abdominal pain, Nausea, Vomiting, Constipation, Diarrhea) Genitourinary: Negative (No dysuria) Hematologic: Negative (No bleeding, bruising) OB: is Denied or Not Applicable Endocrine: Negative (No hot/cold intolerance) Psychiatric: Negative (No depression, anxiety or suicidal ideation) Physic al Exam: There were no vitals filed for this visit. VIDEO EXAM: (if completed, performed via video enabled technology) No exam performed Audio only due to technical difficulties. IMPRESSION: 64 year old male presents with complaint(s) of lumbar spondylosis. Patient has had excellent relief from 2 medial branch nerve blocks at L3-L4 L4- L5. I am going to schedule for medial branch RFA at the same levels. This is a bilateral procedure as the patient does have pain, axial pain,bilaterally. Smoking cessation was discussed at this patient's [...] guidance BILATERAL SIDES at L3-4 and L4-5 Jira Developer Needed: Radiofrequency Ablation - YES Anticoagulant - Hold Needed: NO HOLD REQUIRED FOR THIS PROCEDURE Anticoagulant - Currently Taking: None, Plavix (7 days when hold needed) Allergies (relevant): None Scheduling - Mobility (Can Patient independently transfer on/off an OR or Procedure table?): YES (May schedule at any location) Scheduling - Additional Info: None Studies: None Functional Pentecostal: NONE Referrals: No additional considerations at present [...] and counseling and educating the patient/family/caregiver. Bertha Kaur APRN.CNP Pain Management [facility] documented [facility]24 NoteHNO ID: [id number] Author: BERTHA KAUR APRN.NABOR Service: ? Author Type: Nurse Practitioner [...] visit. Either the patient or their legal retail sales representative has been informed of the risks and benefits of -- and alternatives to -- treatment through a remote evaluation and consents to proceed with the evaluation remotely. [facility] Today's Date: 05/11/2024 Name: Elis Bills [...] last visit: (Seen on 04/27/2024 by Bertha Kaur CNP) PLAN: Elis Bills would benefit from the following to reach personal goals for decreasing pain, improving function and work participation, and/or improving quality of life: Medications: Requested Prescriptions No prescriptions requested or ordered in this encounter Interventional Procedures: Radiofrequency Ablation (Thermal RFA) - Lumbar Medial Branches under fluoroscopic guidance BILATERAL SIDES at L3-4 and L4-5 Jira Developer Needed: Radiofrequency Ablation - YES Anticoagulant - Hold Needed: NO HOLD REQUIRED FOR THIS PROCEDURE Anticoagulant - Currently Taking: None, Plavix (7 days when hold needed) Allergies (relevant): None Scheduling - Mobility (Can Patient independently transfer on/off an OR or Procedure table?): YES (May schedule at any location) Scheduling - Additional Info: None Studies: None Functional Pentecostal: NONE Referrals: No additional considerations at present [...] 09/22/2023 - Initial HPI (Obtained by Bertha Kaur CNP). DURATION AND ONSET: The pain complaint [...] back, with no relief. (more content not included)...[facility]10-23-2024 Note* Addendum Note - Kalee Calvillo LPN - 05/10/2024 8:38 AM EDTAddended by: KALEE CALVILLO on: 05/10/2024 08:38 AM Modules accepted: Orders [facility]10-23-2024 Miscellaneous Notes* Addendum Note - Kalee Calvillo LPN - 05/10/2024 8:38 AM EDTAddended by: KALEE CALVILLO on: 05/10/2024 08:38 AM Modules accepted: Orders documented in this encounterSub[facility] Nurse Note* Jael Lamas LPN - 05/10/2024 8:16 AM EDT Order has been placed in the patient's [...] ambulatory method. Patient left in good condition. [facility]10-23-2024 Nurse Note* Jael Lamas LPN - 05/10/2024 8:16 AM EDT Order has been placed in the patient's [...] ambulatory method. Patient left in good condition. * Kalee Calvillo LPN - 05/10/2024 7:51 AM EDT Procedure to be performed: L3/4 - L4/5 Unilateral Right Radiofrequency Ablation Patient was walked from exam room to procedure room and assisted onto the procedure tablePatient s procedure was performed in an [facility] Procedure room. Pause completed at each level [...] allergies Procedure Start: 754 Procedure End: 812 * Cricket Marie LPN - 05/10/2024 7:06 AM EDT Jira Developer's Name: MEHREEN Are you on a blood [...] on an antibiotic: N documented in this encounterSub[facility] Nurse Note* Kalee Calvillo LPN - 05/10/2024 7:51 AM EDT Procedure to be performed: L3/4 - L4/5 Unilateral Right Radiofrequency Ablation Patient was walked from exam room to procedure room and assisted onto the procedure tablePatient s procedure was performed in an [facility] Procedure room. Pause completed at each level [...] allergies Procedure Start: 754 Procedure End: 812 [facility]-23-[facility] Instructions* Patient Instructions* Jael Lamas LPN - 05/10/2024 7:49 AM EDT PROCEDURE DISCHARGE INSTRUCTIONS 05/10/2024 Elis Dumont Sanju 1960 Physician: Everton Sanchez MD Procedure: BILATERAL L3/4, L4/5 LUMBAR RADIOFREQUENCY ABLATION Post Procedure Instructions: If sedation not given, no driving for 3 hours after the procedure., Rest the day of the procedure.,You may resume normal activities the day after [...] emergency care and why. documented in this encounterSuburban [facility]10-[facility]24 NoteHNO ID: [id number] Author: EVERTON SANCHEZ MD Service: ? Author Type: Physician Type: Progress Notes Filed: 05/10/2024 08:31 Note Text: [facility] Date: 05/10/2024 Patient name: Elis Bills Physician performing procedure: Everton Sanchez M.D., M.B.A. PROCEDURE: Radiofrequency Ablation (Thermal RFA) [...] or double vision) Respiratory: Negative (No Cough, Sdtcdjorg-cp-pcjxrt, Dyspnea on exertion, wheezing) Cardiovascular: Negative (No [...] appropriate Assessment and Plan: As noted above [place] protocol documentation / Pre-Procedure Checklist: Consent: Obtained [...] proceed and was transpo (more content not included)...[facility]10-23-2024 History of Present illness Narrative* Everton Sanchez MD - 05/10/2024 7:37 AM EDT [facility] Date: 05/10/2024 Patient name: Elis Bills Physician performing procedure: Everton Sanchez M.D., M.B.A. PROCEDURE: Radiofrequency Ablation (Thermal RFA) [...] or double vision) Respiratory: Negative (No Cough, Bhmrqvguu-yj-kvqgud, Dyspnea on exertion, wheezing) Cardiovascular: Negative (No [...] appropriate Assessment and Plan: As noted above [place] protocol documentation / Pre-Procedure Checklist: Consent: Obtained [...] written consent to proceed and was transported intothe procedure room Surgical/Procedure pause or Time Out : Time Out was led by the physician in the procedure room, with the patient and all staff present andparticipating The following information was verified during the [...] the transverse process. This was confirmed with anoblique view as well. To denervate the L5 [...] Appropriate radiographs were obtained to verify the probeplacement during the neurotomy. Please see the nursing [...] ROGERSA Pain Management [facility] * Cricket Marie LPN - 05/10/2024 7:12 AM EDT Review of Systems Constitutional: Positive for activity change. Musculoskeletal: Positive for back pain and gait problem. documented in this encounterSub[facility]24 NoteHNO ID: [id number] Author: CRICKET MARIE LPN Service: ? Author Type: LICENSED NURSE Type: Progress Notes Filed: 05/10/2024 08:31 Note Text: Review of Systems Constitutional: Positive for activity change. Musculoskeletal: Positive for back pain and gait problem.[facility]10-23-2024 Nurse Note* Cricket Marie LPN - 05/10/2024 7:06 AM EDT Jira Developer's Name: MEHREEN Are you on a blood [...] Are you currently on an antibiotic: N [facility]10-11-2024 Telephone encounter Note* Telephone Encounter - Vivian Fried - 04/28/2024 9:01 AM EDT Images from the original note were not included. [facility]10-11-2024 Miscellaneous Notes* Telephone Encounter - Vivian Fried - 04/28/2024 9:01 AM EDT Images from the original note were not included. * Telephone Encounter - Bertha Kaur APRN.CNP - 04/27/2024 4:03 PM EDT I spoke to Vivian Corky after my discussion with the pt and she is going to attempt to get him scheduled in that time slot, please defer to her. Thanks. * Telephone Encounter - Celeste Tong - 04/27/2024 3:53 PM EDT Called patient to scheduled BL RFA per [...] clarify . Celeste Tong documented in this encounterSuburban [facility]10-[facility]24 Telephone encounter Note * Telephone Encounter - Bertha Kaur APRN.CNP - 04/27/2024 4:03 PM EDT I spoke to Vivian Corky after my discussion with the pt and she is going to attempt to get him scheduled in that time slot, please defer to her. Thanks. [facility]10-10-2024 Telephone encounter Note* Telephone Encounter - Celeste Tong - 04/27/2024 3:53 PM EDT Called patient to scheduled BL RFA per [...] sides done. Please clarify . Celeste Tong [facility]10-10-2024 Telephone encounter Note* Telephone Encounter - Celeste Tong - 04/27/2024 3:47 PM EDT Opened in errori [facility]10-10-2024 Miscellaneous Notes* Telephone Encounter - Celeste Sanz - 04/27/2024 3:47 PM EDT Opened in errori documented in this encounterSuburban [facility] Instructions* Patient Instructions* Bertha Kaur APRN.CNP - 04/27/2024 3:33 PM EDT Ice and heat as tolerated Activity as tolerated documented in this encounterSuburban [facility] Hospital [facility]10[facility] History of Present illness Narrative* Bertha Kaur APRN.CNP - 04/27/2024 3:15 PM EDT Images from the original note were not included. VIRTUAL VISIT PROGRESS NOTE This is a virtual visit using MyChart Zoom Video Visit. It required patient- provider interaction for the medical decision making as documented below. I have communicated my name and active licensure. The patient's identity and physical location wereverified at the time of this visit. Either the patient or their legal retail sales representative has been informed of the risks and benefits of -- and alternatives to -- treatment through a remote evaluation andconsents to proceed with the evaluation remotely. [facility] Today's Date: 04/27/2024 Name: Elis Bills : 1960 Purpose: Follow-up Patient Evaluation - This is an established patient, returning today for continued evaluation and management of the chief complaint noted below (Telemedicine) Chief complaint: low back pain Referring Clinician: Pertinent Past Medical History: COPD, Obesity, HTN, HLD, CVA Pertinent Past Surgeries: B/L THR This is a virtual visit via Zoom, Phone and/or [employer]. It required patient- provider interaction for the medical decision making as documented below. Patient understands that privacy cannot be guaranteed. Note: Examination was limited today due to this being a virtual/telemedicine encounter Plan at last visit: (Seen on 03/30/2024 by Bertha Kaur CNP) Medications: Requested Prescriptions No prescriptions requested or ordered in this encounter Interventional Procedures: Medial Branch Block (Diagnostic only, NO STEROIDS) under fluoroscopic guidance BILATERAL SIDES at L3-4 and L4-5 Jira Developer Needed: Medial Branch Blocks - YES Anticoagulant - Hold Needed: NO HOLD REQUIRED FOR THIS PROCEDURE Anticoagulant - Currently Taking: None Allergies (relevant): None Scheduling - Mobility (Can Patient independently transfer on/off an OR or Procedure table?): YES (May schedule at any location) Scheduling - Additional Info: None Studies: None Functional Pentecostal: NONE Referrals: No additional considerations at present [...] injection. This is the second in a seriesof 2 medial branch nerve blocks. Patient stating [...] 09/22/2023 - Initial HPI (Obtained by Bertha Kaur CNP). DURATION AND ONSET: The pain complaint [...] back pain without radicular symptoms. Patient stating thathe has had an x-ray of his lumbar spine but no MRI. Patient stating that he has had an injection into his low back, with no relief. Patient states he did not care for the explanation of the next planof care from this provider and so he is changing pain management. Patient has done recent physical therapy. 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 [...] 10 10 Pain Location Back-Lower Back-Lower Description Sharp;Shooting;Spasm;Stabbing;Stiffness Burning;Pulsating;Sharp;Shooting;Throbbing Duration Amount of Time 10 10 Duration Units Minutes Minutes Years Frequency Continuous Intermittent Intervention/Comfort measure Medication;Reposition;Relaxation;Exercise;Massage Medication;Reposition;Relaxation;Exercise;Massage;Positioning;Rocking/holding Comments Bent over while standing due to pain cannot walk far Compliance: PDMP website checked and validated on 04/27/2024 by Bertha Kaur APRN.PROFESSOR OF MARKETING All prescriptions have been APPROPRIATELY filled. No [...] and assume there are 5 lumbar-type vertebrae. Litigation Attorney: YAIR Transcribe Date/Time: Nov 19 2023 3:30P [...] or double vision) Respiratory: Negative (No Cough, Xnqczzofg-wc-faoasr, Dyspnea on exertion, wheezing) Cardiovascular: Negative (No Chest Pain, Tightness, Pressure, Palpitations) Gastrointestinal: Negative (No Abdominal pain, Nausea, Vomiting, Constipation, Diarrhea) Genitourinary: Negative (No dysuria) Hematologic: Negative (No bleeding, bruising) OB: is Denied or Not Applicable Endocrine: Negative (No hot/cold intolerance) Psychiatric: Negative (No depression, anxiety or suicidal ideation) Physic al Exam: There were no vitals filed for this visit. VIDEO EXAM: (if completed, performed via video enabled technology) No exam performed Audio only due to technical difficulties. IMPRESSION: 64 year old male presents with complaint(s) of lumbar spondylosis. Patient has had excellent relief from 2 medial branch nerve blocks at L3-L4 L4- L5. I am going to schedule for medial branch RFA at the same levels. This is a bilateral procedure as the patient does have pain, axial pain,bilaterally. Smoking cessation was discussed at this patient's [...] guidance BILATERAL SIDES at L3-4 and L4-5 Jira Developer Needed: Radiofrequency Ablation - YES Anticoagulant - Hold Needed: NO HOLD REQUIRED FOR THIS PROCEDURE Anticoagulant - Currently Taking: None, Plavix (7 days when hold needed) Allergies (relevant): None Scheduling - Mobility (Can Patient independently transfer on/off an OR or Procedure table?): YES (May schedule at any location) Scheduling - Additional Info: None Studies: None Functional Pentecostal: NONE Referrals: No additional considerations at present [...] and counseling and educating the patient/family/caregiver. Bertha Kaur APRN.CNP Pain Management [facility] documented in this encounterSub[facility]24 NoteHNO ID: [id number] Author: BERTHA KAUR APRN.CNP Service: ? Author Type: Nurse Practitioner Type: Progress Notes Filed: 04/27/2024 15:33 Note Text: VIRTUAL VISIT PROGRESS NOTE This is a virtual visit using [employer] Zoom Video Visit. It required patient-provider interaction for the medical decision making as documented below. I have communicated my name and active licensure. The patient's identity and physical location were verified at the time of this visit. Either the patient or their legal retail sales representative has been informed of the risks and benefits of -- and alternatives to -- treatment through a remote evaluation and consents to proceed with the evaluation remotely. [facility] Today's Date: 04/27/2024 Name: Elis Bills : 1960 Purpose: Follow-up Patient Evaluation - This is an established patient, returning today for continued evaluation and management of the chief complaint noted below (Telemedicine) Chief complaint: low back pain Referring Clinician: Pertinent Past Medical History: COPD, Obesity, HTN, HLD, CVA Pertinent Past Surgeries: B/L THR This is a virtual visit via Zoom, Phone and/or [employer]. It required patient-provider interaction for the medical decision making as documented below. Patient understands that privacy cannot be guaranteed. Note: Examination was limited today due to this being a virtual/telemedicine encounter Plan at last visit: (Seen on 03/30/2024 by Bertha Kaur CNP) Medications: Requested Prescriptions No prescriptions requested or ordered in this encounter Interventional Procedures: Medial Branch Block (Diagnostic only, NO STEROIDS) under fluoroscopic guidance BILATERAL SIDES at L3-4 and L4-5 Jira Developer Needed: Medial Branch Blocks - YES Anticoagulant - Hold Needed: NO HOLD REQUIRED FOR THIS PROCEDURE Anticoagulant - Currently Taking: None Allergies (relevant): None Scheduling - Mobility (Can Patient independently transfer on/off an OR or Procedure table?): YES (May schedule at any location) Scheduling - Additional Info: None Studies: None Functional Pentecostal: NONE Referrals: No additional considerations at present [...] 09/22/2023 - Initial HPI (Obtained by Bertha Kaur CNP). DURATION AND ONSET: The pain complaint [...] done recent physical therapy. 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 Patient left in good condition. [facility]10-09-[facility] Nurse Note* Greta Guillen LPN - 04/26/2024 8:22 AM EDT Order has been placed in the patient's [...] ambulatory method. Patient left in good condition. * Kalee Calvillo LPN - 04/26/2024 7:49 AM EDT Procedure to be performed: L3/4 - L4/5 Bilateral Medial Branch Block without steroid Patient was wheeled on stretcher from pre op bay to procedure room and assisted onto the procedure tablePatient s procedure was performed in an [facility] Procedure room. Pause completed at each level [...] allergies Procedure Start: 807 Procedure End: 817 * Greta Guillen LPN - 04/26/2024 7:25 AM EDT Jira Developer's Name: Mehreen Are you on a blood [...] on an antibiotic: no documented in this encounterSub[facility] Instructions* Patient Instructions* Greta Guillen LPN - 04/26/2024 8:09 AM EDT PROCEDURE DISCHARGE INSTRUCTIONS 04/26/2024 Elis Bills 1960 Physician: Everton Sanchez MD Procedure: Facet Joint Injection/Medial Branch Block Post Procedure Instructions: If sedation not given, no driving for 3 hours after the procedure., Perform activities that typically make you have pain and monitor your pain level during these activities for the next 3-4 hours., Apply cold compresses to injection site if needed., If medically acceptable, take over the counter anti- inflammatories such as ibuprofen or Aleve if needed for post procedure discomfort., No hot baths,hot tubs or hot compresses for 24 hours., [...] emergency care and why. documented [facility] NoteHNO ID: [id number] Author: EVERTON SANCHEZ MD Service: ? Author Type: Physician Type: Progress Notes Filed: 04/26/2024 08:51 Note Text: [facility] Date: 04/26/2024 Patient name: Elis Bills Physician performing procedure: Everton Sanchez M.D., M.B.A. PROCEDURE: Medial Branch Block (Diagnostic [...] or double vision) Respiratory: Negative (No Cough, Vbojgjdbz-bg-ulfxtj, Dyspnea on exertion, wheezing) Cardiovascular: Negative (No [...] appropriate Assessment and Plan: As noted above [place] protocol documentation / Pre-Procedure Checklist: Consent: Obtained [...] paralysis, stroke, epidural hemat (more content not included)...[facility]10-09-2024 History of Present illness Narrative* Everton Sanchez MD - 04/26/2024 7:59 AM EDT [facility] Date: 04/26/2024 Patient name: Elis Bills Physician performing procedure: Everton Sanchez M.D., M.B.A. PROCEDURE: Medial Branch Block (Diagnostic only, NO STEROIDS) under fluoroscopic guidance BILATERALSIDES at L3-4 and L4-5 COMMENTS: This was [...] or double vision) Respiratory: Negative (No Cough, Xeitexhpf-br-vzaciv, Dyspnea on exertion, wheezing) Cardiovascular: Negative (No [...] appropriate Assessment and Plan: As noted above [place] protocol documentation / Pre-Procedure Checklist: Consent: Obtained [...] written consent to proceed and was transported intothe procedure room Surgical/Procedure pause or Time Out : Time Out was led by the physician in the procedure room, with the patient and all staff present andparticipating The following information was verified during the [...] of the lumbar facet joints could be fluoroscopicallyvisualized, and the correct position of the needle [...] instructions was offered to the patient. Everton Sanchez MD, MBA Pain Management [facility] * Greta Guillen LPN - 04/26/2024 7:30 AM EDT Review of Systems Constitutional: Positive for activity change. Negative for chills, fever and unexpected weight change. Genitourinary: Negative for difficulty urinating. Musculoskeletal: Positive for arthralgias, back pain and gait problem. Negative for joint swelling,myalgias, neck pain and neck stiffness. Neurological: Negative for weakness, numbness and headaches. Psychiatric/Behavioral: Negative for dysphoric mood, sleep disturbance and suicidal ideas. The patient is not nervous/anxious. documented in this encounterSub[facility] Nurse Note* Kalee Calvillo LPN - 04/26/2024 7:49 AM EDT Procedure to be performed: L3/4 - L4/5 Bilateral Medial Branch Block without steroid Patient was wheeled on stretcher from pre op bay to procedure room and assisted onto the procedure tablePatient s procedure was performed in an [facility] Procedure room. Pause completed at each level [...] allergies Procedure Start: 807 Procedure End: 817 [facility]24 NoteHNO ID: [id number] Author: GRETA GUILLEN LPN Service: ? Author [...] and suicidal ideas. The patient is not nervous/anxious.[facility] 04-26-2024 Nurse Note* Greta Guillen LPN - 04/26/2024 7:25 AM EDT Jira Developer's Name: Mehreen Are you on a blood [...] Are you currently on an antibiotic: no [facility] History of Present illness Narrative* Lois Hoang MD - 04/06/2024 9:30 AM EDT Images from the original note were not included. NEUROSURGERY CONSULT NOTE Lois Hoang MD [facility] Date of visit: April 06, 2024 Patient Name: Mr.Donald Tim Bills Date of : 1960 Current Age: [age] year old Sex: male MRN/E# [id number] Last Office Visit: Visit date not found Chief Complaint: Patient presents with: New Patient Past Medical/Surgical History: Elis Bills is a 63 year old male who is referred by Bertha Kaur APRN, CNP with pain management for neurosurgical [...] pain. He denies any pain into the legs.He follows with pain management and has received [...] Pain Level: 10 Pain Location: Back-Lower Description: Sharp;Shooting;Spasm;Stabbing;Stiffness Duration Amount of Time: 10 Duration Units: Minutes Frequency: Continuous Intervention/Comfort measure: Medication;Reposition;Relaxation;Exercise;Massage Comments: Bent over while standing due to pain cannot walk far PAST MEDICAL HISTORY Diagnosis Date COPD (chronic obstructive pulmonary disease) (HCC) Hypercholesteremia Stroke ([facility] No past surgical history on file. FAMILY [...] pain that has been ongoing for the lastyear. It worsens with standing and activity, and [...] at L2-3 and L3-4. 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 I will check flexion- extension x-rays nexttime I see him to evaluate for any [...] him back in a couple of months withflexion-extension x-rays to assess his progress. I also strongly encouraged him to quit all tobaccouse, not only for his overall health, but should he need an instrumented procedure in the future. All questions were answered. Attribution: The following portions of the patient's history were reviewed, confirmed, and updated as necessary:allergies, current medications, past family history, past medical history, past social history, past surgical history, problem list, HPI, and ROS obtained by others. Some elements may be copied from a previous office note and have been reviewed/updated where appropriate. All portions reflect current medical decision making from today. The clinical and radiographic findings as well as the risks, benefits and alternatives of treatmenthave been reviewed in detail with the patient. Advised to call the office if symptoms worsen or new symptoms develop. Patient expressed understanding and is in agreement with plan. Lois Hoang MD [facility] Medical Decision Making: Problems: Moderate: New problem with uncertain prognosis Data: Unique source(s) for external note(s) reviewed: 1 Unique test result(s) reviewed: 1 Unique test(s) ordered: 1 Risk: Moderate: Moderate risk from testing/treatment Medical Decision Making Level: 4 - Moderate This note was partially generated using [email or web address] voice recognition system, and there may be some incorrect words, spellings, and punctuation that were not noted in checking the note before saving. documented in this encounterSub[facility]24 NoteHNO ID: [id number] Author: LOIS HOANG MD Service: ? Author Type: Physician Type: Progress Notes Filed: 04/06/2024 10:06 Note Text: NEUROSURGERY CONSULT NOTE Lois Hoang MD [facility] Date of visit: April 06, 2024 Patient Name: Mr.Donald Tim Bills Date of : 1960 Current Age: [age] year old Sex: male MRN/E# [id number] Last Office Visit: Visit date not found Chief Complaint: Patient presents with: New Patient Past Medical/Surgical History: Elis Bills is a 63 year old male who is referred by Bertha Kaur APRN, CNP with pain management for neurosurgical [...] Pain Level: 10 Pain Location: Back-Lower Description: Sharp;Shooting;Spasm;Stabbing;Stiffness Duration Amount of Time: 10 Duration Units: Minutes Frequency: Continuous Intervention/Comfort measure: Medication;Reposition;Relaxation;Exercise;Massage Comments: Bent over while standing due to pain cannot walk far PAST MEDICAL HISTORY Diagnosis Date COPD (chronic obstructive pulmonary disease) ([facility]) Hypercholesteremia Stroke ([facility]) No past surgical history on file. FAMILY [...] place and ti (more content not included)... [facility]09-13-[facility] Telephone encounter Note* Telephone Encounter - Oziel Rubalcava - 03/31/2024 10:53 AM EDT Procedure(s) being scheduled: 1.Are you diabetic No [...] 9. Does this procedure require a company driver? Yes If yes, has patient been notified that a company driver is needed and must be present [...] days prior to their first dose of theCOVID vaccine. They should not receive any procedure containing steroids in the time frame between their 1st and 2nd doses of the COVID vaccine. They should not receive a procedure containing steroids 14 days after their 2nd dose of the COVID vaccine.) [facility] Miscellaneous Notes* Telephone Encounter - Oziel Rubalcava - 03/31/2024 10:53 AM EDT Procedure(s) being scheduled: 1.Are you diabetic No [...] 9. Does this procedure require a company driver? Yes If yes, has patient been notified that a company driver is needed and must be present [...] days prior to their first dose of theCOVID vaccine. They should not receive any procedure containing steroids in the time frame between their 1st and 2nd doses of the COVID vaccine. They should not receive a procedure containing steroids 14 days after their 2nd dose of the COVID vaccine.) documented in this encounterSub[facility] Telephone encounter Note * Telephone Encounter - Oziel Rubalcava - 03/30/2024 3:09 PM EDT Medial Branch Block (Diagnostic only, NO STEROIDS) under fluoroscopic guidance BILATERAL SIDES at L3-4 and L4-5 Called pt to schedule procedure, LVM Oziel Rubalcava [facility] Miscellaneous Notes* Telephone Encounter - Oziel Rubalcava - 03/30/2024 3:09 PM EDT Medial Branch Block (Diagnostic only, NO STEROIDS) under fluoroscopic guidance BILATERAL SIDES at L3-4 and L4-5 Called pt to schedule procedure, LVM Oziel Rubalcava documented in this encounterSuburban [facility]09-12-[facility]24 Instructions* Patient Instructions* Bertha Kaur APRN.CNP - 03/30/2024 2:44 PM EDT Ice and heat as tolerated Activity as tolerated documented in this encounterSuburban [facility] History of Present illness Narrative* Bertha Kaur APRN.CNP - 03/30/2024 1:15 PM EDT Images from the original note were not included. VIRTUAL VISIT PROGRESS NOTE This is a virtual visit using Audio only It required patient-provider interaction for the medical decision making as documented below. I have communicated my name and active licensure. The patient's identity and physical location wereverified at the time of this visit. Either the patient or their legal retail sales representative has been informed of the risks and benefits of -- and alternatives to -- treatment through a remote evaluation andconsents to proceed with the evaluation remotely. [facility] Today's Date: 03/30/2024 Name: Elis Bills [...] via Zoom, Phone and/or MyChart. It required patient- provider interaction for the medical decision making as documented below. Patient understands that privacy cannot be guaranteed. Note: Examination was limited today due to this being a virtual/telemedicine encounter Plan at last visit: (Seen on 02/24/2024 by Bertha Kaur CNP) Medications: Requested Prescriptions Signed Prescriptions Disp Refills cyclobenzaprine (FLEXERIL) 10 mg tablet 90 tablet 2 Sig: Take 1 tablet by mouth three times a day as needed. Interventional Procedures: Epidural Steroid Injection - Interlaminar Approach (ILESI) under fluoroscopic guidance NONE at L4-5 Jira Developer Needed: Epidural - YES Anticoagulant - Hold Needed: Lumbar Epidural (HOLD) Anticoagulant - Currently Taking: Plavix (7 days when hold needed) Allergies (relevant): None Scheduling - Mobility (Can Patient independently transfer on/off an OR or Procedure table?): YES (May schedule at any location) Scheduling - Additional Info: None Studies: None Functional Pentecostal: NONE Referrals: No additional considerations at present [...] 09/22/2023 - Initial HPI (Obtained by Bertha Kaur CNP). DURATION AND ONSET: The pain complaint [...] back pain without radicular symptoms. Patient stating thathe has had an x-ray of his lumbar spine but no MRI. Patient stating that he has had an injection into his low back, with no relief. Patient states he did not care for the explanation of the next planof care from this provider and so he is changing pain management. Patient has done recent physical therapy. 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 [...] 10 10 Pain Location Back-Lower Back-Lower Description Burning;Shooting;Stabbing;Throbbing Sharp;Stabbing;Throbbing Duration Amount of Time 10 10 Duration Units Minutes Minutes Frequency Intermittent Continuous Intervention/Comfort measure Medication;Reposition;Relaxation;Exercise;Massage;Positioning Medicatio n;Reposition;Relaxation;Exercise;Massage;Rocking/holding;Other: See comment Comments can not stand long and when standing bent over Compliance: PDMP website checked and validated on 03/30/2024 by Bertha Kaur APRN.PROFESSOR OF MARKETING All prescriptions have been APPROPRIATELY filled. No [...] and assume there are 5 lumbar-type vertebrae. Litigation Attorney: PSCRuben Transcribe Date/Time: Nov 19 2023 3:30P Dictated [...] or double vision) Respiratory: Negative (No Cough, Omotzrgjr-mr-lebshz, Dyspnea on exertion, wheezing) Cardiovascular: Negative (No Chest Pain, Tightness, Pressure, Palpitations) Gastrointestinal: Negative (No Abdominal pain, Nausea, Vomiting, Constipation, Diarrhea) Genitourinary: Negative (No dysuria) Hematologic: Negative (No bleeding, bruising) OB: is Denied or Not Applicable Endocrine: Negative (No hot/cold intolerance) Psychiatric: Negative (No depression, anxiety or suicidal ideation) Physic al Exam: There were no vitals filed for this visit. VIDEO EXAM: (if completed, performed via video enabled technology) No exam performed Audio only IMPRESSION: 63 year old male presents with complaint(s) of lumbar spondylosis.The patient receivingexcellent relief from the transforaminal epidural steroid injection however the relief was short-lived. I did review the MRI with the patient and explained to him I would not want to do another epidur al injection at this time due to the results and the epidural lipomatosis. Patient did receive excellent relief from the medial branch nerve block from L3- L4 L4-L5. He had 1 done and we will attempt to repeat that as patient is appears to be suffering from axial pain not radicular symptoms and I would avoid steroids use. Patient is in agreement with this plan. I also wantto refer the patient to an neurosurgeon as [...] guidance BILATERAL SIDES at L3-4 and L4-5 Jira Developer Needed: Medial Branch Blocks - YES Anticoagulant - Hold Needed: NO HOLD REQUIRED FOR THIS PROCEDURE Anticoagulant - Currently Taking: None Allergies (relevant): None Scheduling - Mobility (Can Patient independently transfer on/off an OR or Procedure table?): YES (May schedule at any location) Scheduling - Additional Info: None Studies: None Functional Pentecostal: NONE Referrals: No additional considerations at present [...] and counseling and educating the patient/family/caregiver. Bertha Kaur APRN.CNP Pain Management [facility] documented in this encounterSub[facility]24 NoteHNO ID: [id number] Author: BERTHA KAUR APRN.CNP Service: ? Author Type: Nurse Practitioner [...] visit. Either the patient or their legal retail sales representative has been informed of the risks and benefits of -- and alternatives to -- treatment through a remote evaluation and consents to proceed with the evaluation remotely. [facility] Today's Date: 03/30/2024 Name: Elis Bills : [...] last visit: (Seen on 02/24/2024 by Bertha Kaur CNP) Medications: Requested Prescriptions Signed Prescriptions Disp Refills cyclobenzaprine (FLEXERIL) 10 mg tablet 90 tablet 2 Sig: Take 1 tablet by mouth three times a day as needed. Interventional Procedures: Epidural Steroid Injection - Interlaminar Approach (ILESI) under fluoroscopic guidance NONE at L4-5 Jira Developer Needed: Epidural - YES Anticoagulant - Hold Needed: Lumbar Epidural (HOLD) Anticoagulant - Currently Taking: Plavix (7 days when hold needed) Allergies (relevant): None Scheduling - Mobility (Can Patient independently transfer on/off an OR or Procedure table?): YES (May schedule at any location) Scheduling - Additional Info: None Studies: None Functional Pentecostal: NONE Referrals: No additional considerations at present [...] 09/22/2023 - Initial HPI (Obtained by Bertha Kaur CNP). DURATION AND ONSET: The pain complaint [...] changing pain manage (more content not included)... [facility]08-30-2024 Telephone encounter Note* Telephone Encounter - Stephan Calhoun MA - 03/17/2024 10:29 AM EDT Spoke with patient following up from procedure. Patient states they are doing well, no questions orconcerns at this time. Stephan Calhoun CMA [facility]08-30-2024 Miscellaneous Notes* Telephone Encounter - Stephan Calhoun MA - 03/17/2024 10:29 AM EDT Spoke with patient following up from procedure. Patient states they are doing well, no questions orconcerns at this time. Stephan Calhoun CMA documented in this encounterSuburban [facility]-29[facility] History of Present illness Narrative* Everton Sanchez MD - 03/16/2024 11:20 AM EDT [facility] Date: 03/16/2024 Patient name: Elis Bills Physician performing procedure: Everton Sanchez M.D., M.B.A. PROCEDURE: Epidural Steroid Injection - Interlaminar Approach (ILESI) under fluoroscopic guidance MIDLINE at L4-5 COMMENTS: He only held Plavix for 6 days (today was day 7). We discussed risks/benefits of delayingvs proceeding (risk of epidural hematoma vs cardiac [...] or double vision) Respiratory: Negative (No Cough, Fogulyklt-xq-vdvrox, Dyspnea on exertion, wheezing) Cardiovascular: Negative (No Chest Pain, Tightness, Pressure, Palpitations) Gastrointestinal: Negative (No Abdominal pain, Nausea, Vomiting, Constipation, Diarrhea) Genitourinary: Negative (No dysuria) Hematologic: Negative (No bleeding, bruising) OB: is Denied or Not Applicable Endocrine: Negative (No hot/cold intolerance) Psychiatric: Negative (No depression, anxiety or suicidal ideation) PAST MEDICAL HISTORY No date: COPD (chronic obstructive pulmonary disease) ([facility]) No date: Hypercholesteremia No date: Stroke (HCC) [...] Inhale 2 Puffs as instructed two times aday. predniSONE (DELTASONE) 20 mg tablet Take 2 [...] appropriate Assessment and Plan: As noted above [place] protocol documentation / Pre-Procedure Checklist: Consent: Obtained [...] written consent to proceed and was transported intothe procedure room Surgical/Procedure pause or Time Out : Time Out was led by the physician in the procedure room, with the patient and all staff present andparticipating The following information was verified during the Time Out process: Patient name, patient date of , procedure site (marked), laterality, anticoagulants and allergies Procedure: The patient was prepped and draped in a sterile fashion in the prone position after informed consent was signed and all the patient's questions were answered including the risks, benefits,alternative treatment options, and prognosis. The risks are [...] instructions was offered to the patient. Everton Sanchez MD [facility] * Karthik Lopez LPN - 03/16/2024 10:57 AM EDT Review of Systems Constitutional: Negative for activity change, appetite change, chills and fever. Genitourinary: Negative for difficulty urinating. Musculoskeletal: Positive for arthralgias, back pain and gait problem. Negative for joint swelling,myalgias, neck pain and neck stiffness. Neurological: Negative for weakness, numbness and headaches. Psychiatric/Behavioral: Negative for dysphoric mood, sleep disturbance and suicidal ideas. The patient is not nervous/anxious. documented in this encounterSuburban [facility]24 NoteHNO ID: [id number] Author: EVERTON SANCHEZ MD Service: ? Author Type: Physician Type: Progress Notes Filed: 03/16/2024 11:37 Note Text: [facility] Date: 03/16/2024 Patient name: Elis Bills Physician performing procedure: Everton Sanchez M.D., M.B.A. PROCEDURE: Epidural Steroid Injection - [...] or double vision) Respiratory: Negative (No Cough, Konsyzyau-kn-ufgqwu, Dyspnea on exertion, wheezing) Cardiovascular: Negative (No Chest Pain, Tightness, Pressure, Palpitations) Gastrointestinal: Negative (No Abdominal pain, Nausea, Vomiting, Constipation, Diarrhea) Genitourinary: Negative (No dysuria) Hematologic: Negative (No bleeding, bruising) OB: is Denied or Not Applicable Endocrine: Negative (No hot/cold intolerance) Psychiatric: Negative (No depression, anxiety or suicidal ideation) PAST MEDICAL HISTORY No date: COPD (chronic obstructive pulmonary disease) ([facility]) No date: Hypercholesteremia No date: Stroke ([facility]) No past surgical history on file. FAMILY [...] appropriate Assessment and Plan: As noted above [place] protocol documentation / Pre-Procedure Checklist: Consent: Obtained in writing prior to procedure I had a nice discussion with the patient today about their current pain and the pathology that could be causing it We discussed different treatment options, including risks, benefits and alternatives. We agreed to proceed as previously discussed, or the (more content not included)...[facility]08-29-20[facility] Nurse Note* Cricket Marie LPN - 03/16/2024 11:13 AM EDT Order has been placed in the patient's [...] ambulatory method. Patient left in good condition. [facility]08[facility] Nurse Note* Cricket Marie LPN - 03/16/2024 11:13 AM EDT Order has been placed in the patient's [...] ambulatory method. Patient left in good condition. * Kalee Calvillo LPN - 03/16/2024 11:02 AM EDT Procedure to be performed: L4/L5 Interlaminar Epidural Steroid Injection Patient was wheeled on stretcher from pre op bay to procedure room and assisted onto the procedure tablePatient s procedure was performed in an [facility] Procedure room. Pause completed at each level [...] allergies Procedure Start: 1106 Procedure End: 1111 * Karthik Lopez LPN - 03/16/2024 10:55 AM EDT Jira Developer's Name: MEHREEN Are you on a blood [...] to receive one? N documented in this encounterSuburban [facility] Instructions* Patient Instructions* Cricket Marie LPN - 03/16/2024 11:11 AM EDT PROCEDURE DISCHARGE INSTRUCTIONS 03/16/2024 lEis Bills 1960 Physician: Everton Sanchez MD Procedure: Epidural Steroid Injection: Lumbar (transforaminal/Interlaminar/Caudal) Post Procedure Instructions: If sedation not given, no driving for 3 hours after the procedure., Rest the day of the procedure.,You may resume normal activities the day after the procedure, as tolerated., Pain should gradually subside over the next 2-3 weeks., Avoid movements that may aggravate pain., Apply cold compresses toinjection site if needed., If medically acceptable, take [...] emergency care and why. documented in this encounterSub[facility] Nurse Note* Kalee Calvillo LPN - 03/16/2024 11:02 AM EDT Procedure to be performed: L4/L5 Interlaminar Epidural Steroid Injection Patient was wheeled on stretcher from pre op bay to procedure room and assisted onto the procedure tablePatient s procedure was performed in an [facility] Procedure room. Pause completed at each level [...] allergies Procedure Start: 1106 Procedure End: 1111 [facility]08-29-2024 NoteHNO ID: [id number] Author: KARTHIK LOPEZ LPN Service: ? Author [...] and suicidal ideas. The patient is not nervous/anxious.[facility] 03-16-2024 Nurse Note* Karthik Lopez LPN - 03/16/2024 10:55 AM EDT Jira Developer's Name: MEHREEN Are you on a blood [...] are you scheduled to receive one? N [facility]08-29-2024 Telephone encounter Note* Telephone Encounter - Bertha Kaur APRN.CNP - 03/16/2024 8:02 AM EDT Could you proof read this please. Thanks. [facility]08-29-2024 Miscellaneous Notes* Telephone Encounter - Bertha Kaur APRN.CNP - 03/16/2024 8:02 AM EDT Could you proof read this please. Thanks. documented in this encounterSub[facility] Telephone encounter Note * Telephone Encounter - Vivian Fried - 03/15/2024 8:19 AM EDT Called and spoke with patient and informed him that he will need to speak with Financial Clearance before I can place him back on the schedule for this procedure. I will need this procedure paid for and cleared by them before we can reschedule. Patient voiced understanding. Vivian Fried [facility]08-28-2024 Miscellaneous Notes* Telephone Encounter - Vivian Fried - 03/15/2024 8:19 AM EDT Called and spoke with patient and informed him that he will need to speak with Financial Clearance before I can place him back on the schedule for this procedure. I will need this procedure paid for and cleared by them before we can reschedule. Patient voiced understanding. Vivian Fried * Telephone Encounter - Chanda Mckee - 03/15/2024 8:12 AM EDT ----- Message from Johnny Owusu sent at 03/14/2024 4:14 PM EDT ----- Regarding: Spine & Pain / Everton Sanchez) / Procedure / Injection Patient: Elis Bills Date of : 1960 Primary Care Provider: Pilar Lanza DO Patient has been identified by name and Date of (Y/N): y Patient: Elis Bills Date of : 1960 Provider for this encounter: Pilar Lanza DO Reason for the call/escalation: Pt's called in to return call from office regarding procedure that was originally scheduled with Dr Everton Sanchez on 03/16. Appt was cancelled by office [...] (Caregivers Name): n If No - Which [facility] Leadership Cpa Tax Did You Speak With Regarding This Patient: n Was an appointment scheduled (Y/N): n/a Reason patient was requesting visit (RFV/signs and symptoms/diagnosis) : procedure Person calling if other than patient: Spouse, Mehreen Bills Return call to if other than patient: y Best contact number: [phone] Thank you, Johnny Hdez March 14, 2024 4:14 PM documented in this encounterSub[facility] Telephone encounter Note * Telephone Encounter - Chanda Mckee - 03/15/2024 8:12 AM EDT ----- Message from Johnny Owusu sent at 03/14/2024 4:14 PM EDT ----- Regarding: Spine & Pain / Everton Sanchez) / Procedure / Injection Patient: Elis Bills Date of : 1960 Primary Care Provider: Pilar Lanza DO Patient has been identified by name and Date of (Y/N): y Patient: Elis Bills Date of : 1960 Provider for this encounter: Pilar Lanza DO Reason for the call/escalation: Pt's called in to return call from office regarding procedure that was originally scheduled with Dr Everton Sanchez on 03/16. Appt was cancelled by office because procedure was denied by insurance, but pt stated that they would be self-paying the procedure, and will need to have it rescheduled for 03/16. Pt requested call back from office for assistance with this appt. Was Patient Referred to [facility]/Seek Emergency Treatment (Y/N): n Did Patient Agree (Y/N): n Was An Attempt Made To Transfer The Patient To The Office (Y/N): n Were You Able To Reach Someone At The Office (Y/N): n If Yes - Patient Was Transferred To (Caregivers Name): n If No - Which [facility] Cpa Tax Did You Speak With Regarding This Patient: n Was an appointment scheduled (Y/N): n/a Reason patient was requesting visit (RFV/signs and symptoms/diagnosis) : procedure Person calling if other than patient: Spouse, Mehreen Bills Return call to if other than patient: y Best contact number: [phone] Thank you, Johnny Hdez March 14, 2024 4:14 PM [facility]08-26-2024 Telephone encounter Note* Telephone Encounter - Chanda Mckee - 03/13/2024 2:55 PM EDT Patient Last Name SANJU Patient First Name [...] medical necessity. This process should not preclude usfrom completing the steps needed to secure authorization [...] date 03/08/2024 Insurance Case Information Insurance Name MMUmer Patient's Insurance Case# [id number] Ordering Provider Berthavikki Catherinenegrita Approved Services N/A Denied Services [id number] - NJX DX/THER SBST INTRLMNR LMBR/SAC W/IMG [...] complete the Peer to Peer? Dr, PA, CLAY SHOP SUPERVISOR, LN Additional Peer to Peer Instructions You can call for the peer to peer at the date and time of your convenience Appeal Instructions Appeal Address [address] [address], [facility], [address] Appeal Fax# No fax# available Required Form(s) Yes, Please see attached or can be found at [email or web address] ([email or web address]). Additional Appeal Instructions Send it attention to: Appeals department. Include: coversheet with patient's and case information, a formal appeal letter and attach any pertinent supporting clinical documentation. Also, insurance requires a formal appeal form filled out if you would like to submit a written appeal. Facility Information Location [facility] [id number] Tax ID# [id number] [facility]08-26-2024 Miscellaneous Notes* Telephone Encounter - Chanda Mckee - 03/13/2024 2:55 PM EDT Patient Last Name SANJU Patient First Name ELIS Dumont Date of 1960 Clinical Clearance / Financial Clearance Status Pending Clinical Clearance Notifications are supported by our roceal policy and used when an immediate payer source is not available. The CCN process can allow cases to be completed while still working to obtain payer s authorization due to urgency or medical necessity. This process should not preclude usfrom completing the steps needed to secure authorization [...] Information Insurance Name MARANDA Patient's Insurance Case# [id number] Ordering Provider Bertha Kaur Approved Services N/A Denied Services [id number] - NJX DX/THER SBST INTRLMNR LMBR/SAC W/IMG [...] complete the Peer to Peer? Dr, PA, CLAY SHOP SUPERVISOR, LN Additional Peer to Peer Instructions You can call for the peer to peer at the date and time of your convenience Appeal Instructions Appeal Address [address] [address], [facility], [address] Appeal Fax# No fax# available Required Form(s) Yes, Please see attached or can be found at [email or web address] ([email or web address]). Additional Appeal Instructions Send it attention to: Appeals department. Include: coversheet with patient's and case information, a formal appeal letter and attach any pertinent supporting clinical documentation. Also, insurance requires a formal appeal form filled out if you would like to submit a written appeal. Facility Information Location [facility] [id number] Tax ID# [id number] documented in this encounterSub[facility] Telephone encounter Note * Telephone Encounter - Diane Kaye Ronen - 02/25/2024 11:07 AM EDT Procedure(s) being scheduled: 1.Are you diabetic No [...] 9. Does this procedure require a company driver? Yes If yes, has patient been notified that a company driver is needed and must be present [...] days prior to their first dose of theCOVID vaccine. They should not receive any procedure containing steroids in the time frame between their 1st and 2nd doses of the COVID vaccine. They should not receive a procedure containing steroids 14 days after their 2nd dose of the COVID vaccine.) Diane Kaye [facility]08-09-2024 Miscellaneous Notes* Telephone Encounter - Diane Kaye - 02/25/2024 11:07 AM EDT Procedure(s) being scheduled: 1.Are you diabetic No [...] 9. Does this procedure require a company driver? Yes If yes, has patient been notified that a company driver is needed and must be present [...] days prior to their first dose of theCOVID vaccine. They should not receive any procedure containing steroids in the time frame between their 1st and 2nd doses of the COVID vaccine. They should not receive a procedure containing steroids 14 days after their 2nd dose of the COVID vaccine.) Diane Kaye documented in this encounterSub[facility] Telephone encounter Note * Telephone Encounter - Diane Kaye - 02/25/2024 11:06 AM EDT The Anticoag Management letter has been sent to the PCP, Pilar Lanza DO via facsimile. [phone] Diane Kaye [facility]08-09-2024 Miscellaneous Notes* Telephone Encounter - Diane Kaye - 02/25/2024 11:06 AM EDT The Anticoag Management letter has been sent to the PCP, Pilar Lanza DO via facsimile. [phone] Diane Kaye documented in this encounterSub[facility] Telephone encounter Note * Telephone Encounter - Rose Leal - 02/25/2024 8:15 AM EDT Outbound Call to patient to schedule Injection - Epidural Steroid Injection - Interlaminar Approach (ILESI) under fluoroscopic guidance NONE at L4-5(Currently Taking: Plavix needs 7 day hold) - Reached VM; LVM [phone] (cell/home) JASS Block [facility]08-09-2024 Miscellaneous Notes* Telephone Encounter - Rose Leal - 02/25/2024 8:15 AM EDT Outbound Call to patient to schedule Injection - Epidural Steroid Injection - Interlaminar Approach (ILESI) under fluoroscopic guidance NONE at L4-5(Currently Taking: Plavix needs 7 day hold) - Reached VM; LVM [phone] (cell/home) JASS Block documented in this encounterSuburban [facility] Instructions* Patient Instructions* Bertha Kaur APRN.PROFESSOR OF MARKETING - 02/24/2024 4:21 PM EDT Ice and heat as tolerated Activity as tolerated documented in this encounterSuburban [facility] History of Present illness Narrative* Bertha Kaur APRN.CNP - 02/24/2024 2:15 PM EDT Images from the original note were not included. VIRTUAL VISIT PROGRESS NOTE This is a virtual visit using Audio only It required patient-provider interaction for the medical decision making as documented below. I have communicated my name and active licensure. The patient's identity and physical location wereverified at the time of this visit. Either the patient or their legal retail sales representative has been informed of the risks and benefits of -- and alternatives to -- treatment through a remote evaluation andconsents to proceed with the evaluation remotely. [facility] Today's Date:02/24/2024 Name: Elis Bills : [...] via Zoom, Phone and/or MyChart. It required patient- provider interaction for the medical decision making as [...] Medications Interventional Procedures: None Studies: None Functional Pentecostal: NONE Referrals: No additional considerations at present [...] pain with the activity mentioned. Patient stating thatis causing him not to be able to [...] 09/22/2023 - Initial HPI (Obtained by Bertha Kaur CNP). DURATION AND ONSET: The pain complaint [...] back pain without radicular symptoms. Patient stating thathe has had an x-ray of his lumbar spine but no MRI. Patient stating that he has had an injection into his low back, with no relief. Patient states he did not care for the explanation of the next planof care from this provider and so he is changing pain management. Patient has done recent physical therapy. 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 No [...] and assume there are 5 lumbar-type vertebrae. Litigation Attorney: [facility] Transcribe Date/Time: Nov 19 2023 3:30P [...] or double vision) Respiratory: Negative (No Cough, Bryerdnre-bc-jxwndp, Dyspnea on exertion, wheezing) Cardiovascular: Negative (No Chest Pain, Tightness, Pressure, Palpitations) Gastrointestinal: Negative (No Abdominal pain, Nausea, Vomiting, Constipation, Diarrhea) Genitourinary: Negative (No dysuria) Hematologic: Negative (No bleeding, bruising) OB: is Denied or Not Applicable Endocrine: Negative (No hot/cold intolerance) Psychiatric: Negative (No depression, anxiety or suicidal ideation) Physic al Exam: There were no vitals filed for [...] due to the length of time of relief,patient wants to try to do interlaminar epidural steroid injection to see if he can get relief fromthat with 1 injection instead of trying multiple again that may not even get approved. I am ordering an interlaminar epidural steroid injection from L4-L5. I am doing this is that this is where he received the most relief from the procedure when the nerve block was done. If this is not successful Siva going to try to do another medial [...] (ILESI) under fluoroscopic guidance NONE at L4-5 Jira Developer Needed: Epidural - YES Anticoagulant - Hold Needed: Lumbar Epidural (HOLD) Anticoagulant - Currently Taking: Plavix (7 days when hold needed) Allergies (relevant): None Scheduling - Mobility (Can Patient independently transfer on/off an OR or Procedure table?): YES (May schedule at any location) Scheduling - Additional Info: None Studies: None Functional Pentecostal: NONE Referrals: No additional considerations at present [...] and counseling and educating the patient/family/caregiver. Bertha Kaur APRN.CNP Pain Management [facility], [facility] documented in this encounterSuburban [facility]2024 NoteHNO ID: [id number] Author: BERTHA KAUR APRN.CNP Service: ? Author Type: Nurse Practitioner [...] visit. Either the patient or their legal retail sales representative has been informed of the risks and benefits of -- and alternatives to -- treatment through a remote evaluation and consents to proceed with the evaluation remotely. [facility] Today's Date:02/24/2024 Name: Elis Bills [...] Medications Interventional Procedures: None Studies: None Functional Pentecostal: NONE Referrals: No additional considerations at present [...] 09/22/2023 - Initial HPI (Obtained by Bertha Kaur CNP). DURATION AND ONSET: The pain complaint has been present for approximately 9 months. The pain had a sudden onset. The mechanism of injury is unknown. RED (more content not included)...[facility]07-08-2024 Telephone encounter Note* Telephone Encounter - Catherine Champion APRN.CNP - 01/24/2024 3:02 PM EDT Please assist Catherine Champion APRN.CNP [facility] Work Phone: 1(303) 332-207807-08-2024 Miscellaneous Notes* Telephone Encounter - Catherine Champion APRN.CNP - 01/24/2024 3:02 PM EDT Please assist Catherine Champion APRN.CNP documented in this encounterSuburban [facility] Telephone encounter Note * Telephone Encounter - Lindsey eDlgado RN - 01/17/2024 9:17 AM EDT TIMO: 11/11/2023 Future OV: 02/10/2024 Call transferred to Witmer RN from [address] Mehreen, patient's called. Patient name and verified. All information about patient gatheredfrom , patient not present at time of phone call stays patient was hospitalized November 30 for SOB episode. Says this latest flare up started approximately on WednesdayJanuary 07 with a cough and SOB. Says pt. lost voice from coughing so much but wasunable to say if it is productive or [...] states that he has no idea she iscalling about him. She would like to be called back at mobile number listed in patient chart. denies patient having fever, chills, night sweats, headache, or sore throat. Advised patient be seen at urgent care or ED if symptoms worsen or change. Instructed on signs and symptoms of worsening SOB. is agreeable and verbalized understanding. [facility]07-01-2024 Miscellaneous Notes* Telephone Encounter - Lindsey Delgado RN - 01/17/2024 9:17 AM EDT TIMO: 11/11/2023 Future OV: 02/10/2024 Call transferred to Witmer RN from [address] Mehreen, patient's called. Patient name and verified. All information about patient gatheredfrom , patient not present at time of phone call stays patient was hospitalized November 30 for SOB episode. Says this latest flare up started approximately on WednesdayJanuary 07 with a cough and SOB. Says pt. lost voice from coughing so much but wasunable to say if it is productive or [...] states that he has no idea she iscalling about him. She would like to be called back at mobile number listed in patient chart. denies patient having fever, chills, night sweats, headache, or sore throat. Advised patient be seen at urgent care or ED if symptoms worsen or change. Instructed on signs and symptoms of worsening SOB. is agreeable and verbalized understanding. documented in this encounterSub[facility] Telephone encounter Note * Telephone Encounter - Edel Cramer - 01/11/2024 8:20 AM EDT Pharmacy faxed requesting the following refill. TIMO: 11/11/23-patient requesting 90 day supply be sent to [facility]. Requested Prescriptions Pending Prescriptions Disp Refills mometasone-formoterol (DULERA) 200-5 mcg/actuation inhaler 39 g 3 Sig: Inhale 2 Puffs as instructed two times a day. Patient Phone numbers: [phone] (home) Request is for script(s) to be escript to pharmacy. Edel Cramer [facility]06-25-2024 Miscellaneous Notes* Telephone Encounter - Edel Cramer - 01/11/2024 8:20 AM EDT Pharmacy faxed requesting the following refill. TIMO: 11/11/23-patient requesting 90 day supply be sent to [facility]. Requested Prescriptions Pending Prescriptions Disp Refills mometasone-formoterol (DULERA) 200-5 mcg/actuation inhaler 39 g 3 Sig: Inhale 2 Puffs as instructed two times a day. Patient Phone numbers: [phone] (home) Request is for script(s) to be escript to pharmacy. Edel Cramre documented in this encounterSuburban [facility] Telephone encounter Note * Telephone Encounter - Dalia Merritt - 01/06/2024 10:42 AM EDT Rx mail pharmacy faxed requesting the following [...] for wheezing/shortness of breath. Patient Phone numbers: [phone] (home) Request is for script(s) to be escript to mail order [facility]. Dalia Merritt [facility]06-20-2024 Miscellaneous Notes* Telephone Encounter - Dalia Merritt - 01/06/2024 10:42 AM EDT Rx mail pharmacy faxed requesting the following [...] for wheezing/shortness of breath. Patient Phone numbers: [phone] (home) Request is for script(s) to be escript to mail order [facility]. Dalia Merritt documented in this encounterSuburban Community Hospital [facility]06[facility] Telephone encounter Note * Telephone Encounter - Brooke Her RN - 01/03/2024 3:24 PM EDT Attempted to contact patient via telephone. Patient telephone extreme static and was unable to speak with patient. Sent Oink message regarding message below. Alen Mayorga MD15 minutes ago (3:05 PM) CT chest shows stable small/tiny nodules. Further decision for continued surveillance to be made byDr. Womack at subsequent office visits. CT shows dilated pulmonary artery but recent Echo shows normal RV size and function. Brooke Her RN [facility]06-17-2024 Miscellaneous Notes* Telephone Encounter - Brooke Her RN - 01/03/2024 3:24 PM EDT Attempted to contact patient via telephone. Patient telephone extreme static and was unable to speak with patient. Sent Oink message regarding message below. Alen Mayorga MD15 minutes ago (3:05 PM) CT chest shows stable small/tiny nodules. Further decision for continued surveillance to be made byDr. Womack at subsequent office visits. CT shows dilated pulmonary artery but recent Echo shows normal RV size and function. Brooke Her RN * Telephone Encounter - Alen Mayorga MD - 01/03/2024 3:[address] chest shows stable small/tiny nodules. Further decision for continued surveillance to be made byDr. Womack at subsequent office visits. CT shows dilated pulmonary artery but recent Echo shows normal RV size and function. documented in this encounterSuburban [facility]06[facility] Telephone encounter Note * Telephone Encounter - Alen Mayorga MD - 01/03/2024 3:[address] chest shows stable small/tiny nodules. Further decision for continued surveillance to be made byDr. Womack at subsequent office visits. CT shows dilated pulmonary artery but recent Echo shows normal RV size and function. [facility] Work Phone: 1(369) 659-650206-12-2024 History of Present illness Narrative* Rose Victoria RT(R) - 12/29/2023 11:00 AM EDT Radiology Service Progress Note PATIENT NAME: Elis Bills DATE OF SERVICE: December 29, 2023 TIME: 11:15 AM PATIENT IDENTITY VERIFICATION COMPLETED USING TWO (2) IDENTIFIERS: Name and Date of confirmedby patient verbally. FALL SCREENING: Has the patient had 2 falls in the last year or 1 fall with injury or currently using an Ambulatory Assistive Device (Walker, Cane, Wheelchair, Crutches, etc.)? No PATIENT GENDER DATA: Male PATIENT RELEVANT IMPLANT DATA REVIEWED: Yes PATIENT PRESENTS WITH AN IMPLANTABLE OR ATTACHED RDA: No RADIOLOGY DEPARTMENT: CT; Exam(s) Completed: Chest PERIPHERAL IV DATA: Not applicable SIGNED BY: ADRIANA Gaspar) December 29, 2023 11:15 AM documented in this encounterSuburban Community Hospital [facility]06[facility]24 NoteHNO ID: [id number] Author: ROSE VICTORIA RT(R) Service: Radiology Author Type: Bench Assembler Operator Type: Progress Notes Filed: 12/29/2023 11:15 Note Text: Radiology Service Progress Note PATIENT NAME: Elis Blils DATE OF SERVICE: December 29, 2023 TIME: [...] PATIENT PRESENTS WITH AN IMPLANTABLE OR ATTACHED RDA: No RADIOLOGY DEPARTMENT: CT; Exam(s) Completed: Chest PERIPHERAL IV DATA: Not applicable SIGNED BY: RT Chasity(Yareli) December 29, 2023 11:15 [facility] History of Present illness Narrative* Yashira Gonsales APRN.PROFESSOR OF MARKETING - 12/22/2023 4:00 PM EDT Images from the original note were not included. VIRTUAL VISIT PROGRESS NOTE This is a virtual visit using Audio only It required patient-provider interaction for the medical decision making as documented below. I have communicated my name and active licensure. The patient's identity and physical location wereverified at the time of this visit. Either the patient or their legal retail sales representative has been informed of the risks and benefits of -- and alternatives to -- treatment through a remote evaluation andconsents to proceed with the evaluation remotely. [facility] Today's Date:12/22/23 Name: Elis Bills : 1960 Purpose: Post-Procedure Evaluation (Telemedicine) Chief complaint: low back pain Referring Clinician: Pertinent Past Medical History: COPD, Obesity, HTN, HLD, CVA Pertinent Past Surgeries: B/L THR This is a virtual visit via Zoom, Phone and/or MyChart. It required patient- provider interaction for the medical decision making as [...] 09/22/2023 - Initial HPI (Obtained by Bertha Kaur CNP). DURATION AND ONSET: The pain complaint [...] back pain without radicular symptoms. Patient stating thathe has had an x-ray of his lumbar spine but no MRI. Patient stating that he has had an injection into his low back, with no relief. Patient states he did not care for the explanation of the next planof care from this provider and so he is changing pain management. Patient has done recent physical therapy. 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 No [...] and assume there are 5 lumbar-type vertebrae. Litigation Attorney: YAIR Transcribe Date/Time: Nov 19 2023 3:30P [...] or double vision) Respiratory: Negative (No Cough, Hsnaovtnx-ge-pbhvze, Dyspnea on exertion, wheezing) Cardiovascular: Negative (No Chest Pain, Tightness, Pressure, Palpitations) Gastrointestinal: Negative (No Abdominal pain, Nausea, Vomiting, Constipation, Diarrhea) Genitourinary: Negative (No dysuria) Hematologic: Negative (No bleeding, bruising) OB: is Denied or Not Applicable Endocrine: Negative (No hot/cold intolerance) Psychiatric: Negative (No depression, anxiety or suicidal ideation) Physic al Exam: 12/21/231910 Weight: 126.1 kg (278 lb) [...] Medications Interventional Procedures: None Studies: None Functional Pentecostal: NONE Referrals: No additional considerations at present [...] counseling and educating the patient/family/caregiver. Yashira Gonsales APRN.NABOR Pain Management [facility] documented in this encounter[facility] NoteHNO ID: [id number] Author: YASHIRA GONSALES APRN.CNP Service: ? Author [...] visit. Either the patient or their legal retail sales representative has been informed of the risks and benefits of -- and alternatives to -- treatment through a remote evaluation and consents to proceed with the evaluation remotely. [facility] Today's Date:12/22/23 Name: Elisgilberto Bills : 1960 Purpose: Post-Procedure Evaluation (Telemedicine) [...] 09/22/2023 - Initial HPI (Obtained by Bertha Kaur PROFESSOR OF MARKETING). DURATION AND ONSET: The pain complaint has [...] done recent physical therapy. 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 No answer, unable to leave a message. Greta Guillen LPN [facility]05-31-2024 Miscellaneous Notes* Telephone Encounter - Greta Guillen LPN - 12/17/2023 10:09 AM EDT Cutesy call made to follow-up after procedure. No answer, unable to leave a message. Greta Guillen LPN documented in this encounterSub[facility]-30[facility]24 NoteHNO ID: [id number] Author: DHIRAJ HERR MD Service: ? Author Type: Physician Type: Progress Notes Filed: 12/16/2023 12:55 Note Text: [facility] Date: 12/16/2023 Patient name: Elis Bills Physician performing procedure: Dhiraj Herr MD Diagnosis: (M47.816) Lumbar spondylosis (primary encounter diagnosis) Procedure: Medial Branch Block (Diagnostic only, NO STEROIDS) under fluoroscopic guidance BILATERAL SIDES at L3-4 and L4-5 Injectate: A total of 6 ml volume was injected The injectate consisted of: 6 ml of 0.75% Bupivacaine Comments: Discussed with Bertha Kaur, first set of MBB not effective at [...] or double vision) Respiratory: Negative (No Cough, Jskedyiao-vh-xkehtj, Dyspnea on exertion, wheezing) Cardiovascular: Negative (No [...] appropriate Assessment and Plan: As noted above [place] protocol documentation / Pre-Procedure Checklist: Consent: Obtained [...] nerve damage, paral (more content not included)... [facility]05-30-2024 History of Present illness Narrative* Dhiraj Herr MD - 12/16/2023 12:54 PM EDT [facility] Date: 12/16/2023 Patient name: Elis Bills Physician performing procedure: Dhiraj Herr MD Diagnosis: (M47.816) Lumbar spondylosis (primary encounter diagnosis) Procedure: Medial Branch Block (Diagnostic only, NO STEROIDS) under fluoroscopic guidance BILATERAL SIDES at L3-4 and L4-5 Injectate: A total of 6 ml volume was injected The injectate consisted of: 6 ml of 0.75% Bupivacaine Comments: Discussed with Bertha Kaur, first set of MBB not effective at L4-5 , L5-S1, therefore today the level was adjusted to L3-4 and L4-5. Improvement after today's procedure: as per nursing report HPI: Elis Bills is a 63 year old year old male who presents today, in pain, for the procedurenoted above. Review of Systems: Pertinent Positives: MSK: pain in the region being treated Neuro: no weakness or numbness in the region being treated Skin: Negative (No itching) Eyes: Negative (No blurred or double vision) Respiratory: Negative (No Cough, Iiskeftjm-rf-fekkrt, Dyspnea on exertion, wheezing) Cardiovascular: Negative (No [...] Inhale 2 Puffs as instructed two times aday. albuterol (PROVENTIL) 2.5 mg /3 mL (0.083 [...] appropriate Assessment and Plan: As noted above [place] protocol documentation / Pre-Procedure Checklist: Consent: Obtained [...] written consent to proceed and was transported intothe procedure room Surgical/Procedure pause or Time Out : Time Out was led by the physician in the procedure room, with the patient and all staff present andparticipating The following information was verified during the [...] of the lumbar facet joints could be fluoroscopicallyvisualized, and the correct position of the needle [...] MD Pain Management [facility] * Kalee Calvillo LPN - 12/16/2023 10:27 AM EDT Review of Systems Constitutional: Positive for activity change. Negative for chills, fever and unexpected weight change. Gastrointestinal: Negative for bowel retention or incontinence Genitourinary: Negative for difficulty urinating. Negative for bladder retention or incontinence Musculoskeletal: Positive for arthralgias, back pain, gait problem and myalgias. Negative for jointswelling, neck pain and neck stiffness. Neurological: Negative for weakness, numbness and headaches. Psychiatric/Behavioral: Negative for dysphoric mood, sleep disturbance and suicidal ideas. The patient is not nervous/anxious. documented in this encounterSuburban [facility] Nurse Note* Jael Lamas LPN - 12/16/2023 10:55 AM EDT Order has been placed in the patient's [...] ambulatory method. Patient left in good condition. [facility] Nurse Note* Jael Lamas LPN - 12/16/2023 10:55 AM EDT Order has been placed in the patient's [...] ambulatory method. Patient left in good condition. * Karthik Lopez LPN - 12/16/2023 10:30 AM EDT Procedure to be performed: BILATERAL L3/L4, L4/L5 LUMBAR MEDIAL BRANCH BLOCK Patient was wheeled on stretcher from pre op bay to procedure room and assisted onto the procedure tablePatient s procedure was performed in an [facility] Procedure room. Pause completed at each level [...] allergies Procedure Start: 1047 Procedure End: 1051 * Kalee Calvillo LPN - 12/16/2023 10:23 AM EDT Jira Developer's Name: mehreen Are you on a blood [...] to receive one? n documented in this encounterSuburban [facility] Instructions* Patient Instructions* Jael Lamas LPN - 12/16/2023 10:38 AM [...] If medically acceptable, take over the counter anti- inflammatories such as ibuprofen or Aleve if needed for post procedure discomfort., No hot baths,hot tubs or hot compresses for 24 hours., [...] emergency care and why. documented in this encounterSuburban [facility] Hospital [facility]-30-[facility] Nurse Note* Karthik Lopez LPN - 12/16/2023 10:30 AM EDT Procedure to be performed: BILATERAL L3/L4, L4/L5 LUMBAR MEDIAL BRANCH BLOCK Patient was wheeled on stretcher from pre op bay to procedure room and assisted onto the procedure tablePatient s procedure was performed in an [facility] Procedure room. Pause completed at each level [...] procedure site, laterality, and allergies Procedure Start: 104 Procedure End: 1051 [facility]05-30-2024 NoteHNO ID: [id number] Author: KALEE CALVILLO LPN Service: ? Author Type: LICENSED NURSE [...] and suicidal ideas. The patient is not nervous/anxious.[facility] 12-16-2023 Nurse Note* Kalee Calvillo LPN - 12/16/2023 10:23 AM EDT Jira Developer's Name: mehreen Are you on a blood [...] are you scheduled to receive one? n [facility] Telephone encounter Note* Telephone Encounter - Chanda Mckee - 12/14/2023 4:10 PM EDT Patient Last Name SANJU Patient First Name [...] medical necessity. This process should not preclude usfrom completing the steps needed to secure authorization [...] of at least 80% relief with the firstinjection and imaging studies physical exam findings have ruled out other causes of spinal pain i.eherniated disc, stenosis, fracture, or tumor. Therefore, in the absence of required referenced criteria, your request is denied. Date of Service 12/31/2023 Is Peer to Peer Available? (Instructions below) Yes Peer to Peer Deadline until 12/20/2023 Appeal Deadline (Instructions below) 180 days from the denial date 12/06/2023 Insurance Case Information Insurance Name [facility] Patient's Insurance Case# [id number] Ordering Provider Bertha Kaur Approved Services N/A Denied Services 96279 - NJX DX/THER AGT PVRT FACET JT LMBR/SAC 1 LEVEL 10608 - NJX DX/THER AGT PVRT FACET JT LMBR/SAC 2ND LEVEL Alternative Recommendation N/A *Service which can be approved in place of denied service. Clinical Documentation Provided [facility] 11/25/2023, 10/29/2023 FOLLOW UP APPOITNMENT WHEN PROVIDED SPECIFIED 12/02/2023 XR CHEST 1V FRONTAL 12/01/2023 MRI LUMBAR SPINE WO IVCON 11/19/2023 Peer to Peer Instructions Peer to Peer , options: 1-2 Does Peer to Peer need to be scheduled? Yes Who can complete the Peer to Peer? Dr, PA, [employer] SUPERVISOR, LN Additional Peer to Peer Instructions You can call for the peer to peer at the date and time of your convenience Appeal Instructions Appeal Address [address] [address], [facility], [address] Appeal Fax# No fax# available Required Form(s) Yes, Please see attached or can be found at [email or web address] ([email or web address]). Additional Appeal Instructions Send it attention to: Appeals department. Include: coversheet with patient's and case information, a formal appeal letter and attach any pertinent supporting clinical documentation. Also, insurance requires a formal appeal form filled out if you would like to submit a written appeal. Facility Information Location [facility] [place] [id number] Tax ID# [id number] [facility]05-28-[facility]24 Miscellaneous Notes* Telephone Encounter - Chanda Mckee - 12/14/2023 4:10 PM EDT Patient Last Name SANJU Patient First Name [...] medical necessity. This process should not preclude usfrom completing the steps needed to secure authorization [...] of at least 80% relief with the firstinjection and imaging studies physical exam findings have ruled out other causes of spinal pain i.eherniated disc, stenosis, fracture, or tumor. Therefore, in the absence of required referenced criteria, your request is denied. Date of Service 12/31/2023 Is Peer to Peer Available? (Instructions below) Yes Peer to Peer Deadline until 12/20/2023 Appeal Deadline (Instructions below) 180 days from the denial date 12/06/2023 Insurance Case Information Insurance Name MM Patient's Insurance Case# [id number] Ordering Provider Bertha Kaur Approved Services N/A Denied Services 30834 - NJX DX/THER AGT PVRT FACET JT LMBR/SAC 1 LEVEL 89044 - NJX DX/THER AGT PVRT FACET JT LMBR/SAC 2ND LEVEL Alternative Recommendation N/A *Service which can be approved in place of denied service. Clinical Documentation Provided [facility] 11/25/2023, 10/29/2023 FOLLOW UP APPOITNMENT WHEN PROVIDED SPECIFIED 12/02/2023 XR CHEST 1V FRONTAL 12/01/2023 MRI LUMBAR SPINE WO IVCON 11/19/2023 Peer to Peer Instructions Peer to Peer , options: 1-2 Does Peer to Peer need to be scheduled? Yes Who can complete the Peer to Peer? Dr, PA, [employer] SUPERVISOR, LN Additional Peer to Peer Instructions You can call for the peer to peer at the date and time of your convenience Appeal Instructions Appeal Address [address] [address], [facility], [address] Appeal Fax# No fax# available Required Form(s) Yes, Please see attached or can be found at [email or web address] ([email or web address]). Additional Appeal Instructions Send it attention to: Appeals department. Include: coversheet with patient's and case information, a formal appeal letter and attach any pertinent supporting clinical documentation. Also, insurance requires a formal appeal form filled out if you would like to submit a written appeal. Facility Information Location [facility] [id number] Tax ID# [id number] documented in this encounterSub[facility]24 NoteHNO ID: [id number] Author: DEE YOUSSEF RN Service: Care Management Author Type: Registered Nurse Type: Care Mgt Initial Assessment Filed: 12/01/2023 15:44 Note Text: CARE MANAGEMENT: ASSESSMENT AND DISCHARGE PLAN SERVICE DATE: December 01, 2023 SERVICE TIME: 3:38 PM PCP: Pilar Lanza DO Primary Contact: Extended Emergency Contact Information Primary Emergency Contact: SanjuMehreen Mobile Relation: Spouse Admission Status: Observation Insurance Provider: [employer] PPO Discharge Planning requested by: Potential Transition Plans No Services Indicated Advance Directives Current Advance Directive: None Educational Assistant Attempted to Assist with AD Completion: Yes Action: Education Provided Current Living Arrangements and Support Lives with: Spouse/significant other Type of Residence: Private Residence (House) Does the patient have to climb stairs at home?: stairs outside the home Support: Family members How do you manage to accomplish the following: Independent: Ambulation;Bathe/Shower;Dress;Going to the bathroom;Medication Management;Transportation to appointments/community Needs Assistance: Meals/Meal Prep Current Services/Equipment Discharge Planning Patient Goal(s): [place] of Choice Explained: Are you interested in [...] IV antibx. 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 He uses a nebulizer and inhalers at home. His pcp is Dr Lanza and he sees Pulmonary in [place]. He stated he has upcoming appts for spots on lung. His support is his but verbalizes stress with his work and has trouble sleeping at night. He has rx coverage and denies any financial concerns. Discussed scheduling sleep study at [place]. Pt declined- he stated his is scheduling a Home sleep study through [facility]. Will follow SIGNATURE: Dee Youssef RN PATIENT NAME: Elis Bills DATE: December 01, 2023 TIME: 3:37 PM CONTACT #: [phone]05-[facility] Telephone encounter Note* Telephone Encounter - Corky Vivian - 11/29/2023 1:33 PM EDT Received a voicemail from patient's as well. [...] scheduled for the Lumbar MBB's. Vivian Fried [facility]05-13-2024 Miscellaneous Notes* Telephone Encounter - Vivian Fried - 11/29/2023 1:33 PM EDT Received a voicemail from patient's as well. [...] Lumbar MBB's. Vivian Fried documented in this encounterSuburban [facility] Hospital [facility]-10-[facility] Telephone encounter Note * Telephone Encounter - Toya Tucker - 11/26/2023 10:21 AM EDT Patient was called and spoke with. Patient is going to have his call later to schedule the appointment since he was placed on a blood thinner and is 100% sure what it is. Toya Tucker [facility]05-10-2024 Miscellaneous Notes* Telephone Encounter - Toya Tucker - 11/26/2023 10:21 AM EDT Patient was called and spoke with. Patient is going to have his call later to schedule the appointment since he was placed on a blood thinner and is 100% sure what it is. Toya Tucker documented in this encounterSuburban [facility] Instructions* Patient Instructions* Bertha Kaur APRN.CNP - 11/25/2023 2:28 PM EDT Ice and heat as tolerated Activity as tolerated documented in this encounterSuburban [facility] Hospital [facility] History of Present illness Narrative* Bertha Kaur APRN.CNP - 11/25/2023 2:15 PM EDT Images from the original note were not included. VIRTUAL VISIT PROGRESS NOTE This is a virtual visit using Sefairat Zoom Video Visit. It required patient- provider interaction for the medical decision making as documented below. I have communicated my name and active licensure. The patient's identity and physical location wereverified at the time of this visit. Either the patient or their legal retail sales representative has been informed of the risks and benefits of -- and alternatives to -- treatment through a remote evaluation andconsents to proceed with the evaluation remotely. [facility] [place] [facility] Today's Date: 11/25/2023 Name: Elis Bills [...] 09/22/2023 - Initial HPI (Obtained by Bertha Kaur CNP). DURATION AND ONSET: The pain complaint [...] Duration Units Months Frequency Continuous Intervention/Comfort measure Medication;Reposition;Relaxation;Exercise;Heat;Massage;Pillow support;P ositioning;Rocking/holding Compliance: PDMP website checked and validated on 11/25/2023 by Bertha Kaur APRN.PROFESSOR OF MARKETING All prescriptions have been APPROPRIATELY filled. No [...] and assume there are 5 lumbar-type vertebrae. Litigation Attorney: YAIR Transcribe Date/Time: Nov 19 2023 3:30P Dictated by : MECHELLE EDMONDSON MD This examination was interpreted and the report reviewed and electronically signed by: MECHELLE EDMONDSON MD on Nov 19 2023 3:44PM EST Lumbar x-rays 5 views dated 02/12/2023 these show good overall alignment in the coronal and sagittalplanes. Degenerative changes at multiple levels with loss [...] guidance BILATERAL SIDES at L4-5 and L5-S1 Jira Developer Needed: Medial Branch Blocks - YES Anticoagulants: None, Plavix (7 days when hold needed) Relevant Allergies: None Additional Info: None Studies: None Functional Pentecostal: NONE Referrals: No additional considerations at present [...] medical decision making from today's date. Bertha Karu APRN.CNP Pain Management [facility] documented in this encounterSuburban [facility] Hospital [facility]05-[facility]24 NoteHNO ID: [id number] Author: BERTHA KAUR APRN.CNP Service: ? Author Type: Nurse Practitioner Type: Progress Notes Filed: 11/25/2023 14:35 Note Text: VIRTUAL VISIT PROGRESS NOTE This is a virtual visit using ScaleBaseom Video Visit. It required patient-provider interaction for the medical decision making as documented below. I have communicated my name and active licensure. The patient's identity and physical location were verified at the time of this visit. Either the patient or their legal retail sales representative has been informed of the risks and benefits of -- and alternatives to -- treatment through a remote evaluation and consents to proceed with the evaluation remotely. [facility] Today's Date: 11/25/2023 Name: Elis Bills : [...] 09/22/2023 - Initial HPI (Obtained by Bertha Kaur CNP). DURATION AND ONSET: The pain complaint [...] Duration Units Months Frequency Continuous Intervention/Comfort measure Medication;Reposition;Relaxation;Exercise;Heat;Massage;Pillow support;Positioning;Rocking/holding Compliance: PDMP website checked and validated on 11/25/2023 by Bertha Kaur APRN.PROFESSOR OF MARKETING All prescriptions have been APPROPRIATELY filled. No [...] SPINE WO IVCON / (more content not included)...[facility]05-07-2024 Telephone encounter Note* Telephone Encounter - Albertina Martin - 11/23/2023 9:12 AM EDT Spoke with patient and scheduled virtual visit with Bertha Kaur on 11/25/2023 to discuss MRI Albertina Martin Sand Filler to Dr. Everton Sanchez MD / Bertha Kaur CNP, APRN [facility] [address] [place] [address] Phone. [phone] / Fax. [phone] [facility]05-07-2024 Miscellaneous Notes* Telephone Encounter - Albertina Martin - 11/23/2023 9:12 AM EDT Spoke with patient and scheduled virtual visit with Bertha Kaur on 11/25/2023 to discuss MRI Albertina Martin Sand Filler to Dr. Everton Sanchez MD / Bertha Kaur CNP, APRN [facility] [address] [place] [address] Phone. [phone] / Fax. [phone] * Telephone Encounter - Bertha Kaur APRN.CNP - 11/21/2023 10:20 PM EDT Hi, can you please call this pt and set up for a virtual visit with me this to discuss hisMRI results? Thanks. documented in this encounterSub[facility] Telephone encounter Note * Telephone Encounter - Bertha Kaur APRN.CNP - 11/21/2023 10:20 PM EDT Hi, can you please call this pt and set up for a virtual visit with me this to discuss hisMRI results? Thanks. [facility]05-[facility] History of Present illness Narrative* Malena Yoder, automobile service station attendant - 11/19/2023 12:00 PM EDT Radiology Service Progress Note PATIENT NAME: Elis Bills DATE OF SERVICE: November 19, 2023 TIME: 3:40 PM PATIENT IDENTITY VERIFICATION COMPLETED USING TWO (2) IDENTIFIERS: Name and Date of confirmedby patient verbally. FALL SCREENING: Has the patient had 2 falls in the last year or 1 fall with injury or currently using an Ambulatory Assistive Device (Walker, Cane, Wheelchair, Crutches, etc.)? No PATIENT GENDER DATA: Male PATIENT RELEVANT IMPLANT DATA REVIEWED: Yes. joint PATIENT PRESENTS WITH AN IMPLANTABLE OR ATTACHED RDA: No RADIOLOGY DEPARTMENT: MR; Exam(s) Completed: Spine: Lumbar spine PERIPHERAL IV DATA: Not applicable SIGNED BY: Malena Yoder A.A.S.,RT (R) (CT)(MR) November 19, 2023 3:40 PM documented in this encounterSuburban [facility] Hospital [facility]04-[facility] Instructions* Patient Instructions* Shelton Flores MD - 11/11/2023 10:10 AM EDT Nice to see you today. The blood and the Chest CT scan favors you having asthma due to allergies. - will start Dulera twice daily and Spiriva daily. Keep using Budesonide twice daily. Albuterol useas needed 4-6 hours inside the house. When you go out take with your Dulera and use as needed every4-6 hours. - montelukast 10 mg daily. - prilosec once daily - sleep study at home - heart ultrasound - allergy doctor appointment. - Please keep working on giving away the cigarettes. To obtain more information, resources and free samples for nicotine replacement therapy: Please visit the following website: https://[place].quitlogix.org/en-[place]/ OR Call 9-760-PLBT-NOW ([phone]) Use patches and gum both at the same time. How to use nicotine gum For best results, follow the instructions in the package. Nicotine gum is not meant to be used likeregular gum. Chew the gum slowly until you [...] common. On the other hand, with an as- needed schedule, you can use it when you need it most - when you have cravings. Chew no more than 24 pieces of gum in one day. Nicotine gum is usually recommended for 6 to 12 weeks, with the maximum being 6 months. Tapering down the amount of gum you use as you approach 3 monthsmay help you stop using it. But it [...] and talk to your health care provider. Youcould also have nicotine withdrawal symptoms if your [...] patches are available, including 16-hour and 24-hour patches.Which patch you should use depends on how [...] using the patch and talk to your healthcare provider if this happens. You could also [...] of Nicotine replacement therapy. documented in [facility] History of Present illness Narrative* Shelton Flores MD - 11/11/2023 9:15 AM EDT Images from the original note were not included. [facility] Progress Note Mr. Bills is a 63 year old male who [facility]. Consultation requested by Dr. Pilar Lanza for an opinion regarding persistent cough. 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 Other environmental/occupational [...] 2 mL via nebulizer two times a day.^Disp:360 mL^Rfl: 3 lisinopril 2.5 mg tablet^^Disp: ^Rfl: [...] inhaler^Inhale 2 Puffs as instructed two times aday.^Disp: 3 Each^Rfl: 3 albuterol HFA (PROVENTIL HFA, VENTOLIN HFA) 90 mcg/actuation inhaler^Inhale 2 Puffs as instructed every 4 hours as needed for wheezing/shortness of breath.^Disp: 1 Each^Rfl: 3 traMADol (ULTRAM) 50 mg tablet^^Disp: ^Rfl: (Patient not taking: Reported on 11/11/2023) varenicline (CHANTIX) 1 mg tablet^Take 0.5 tablets by mouth once daily for 3 days, THEN 0.5 tabletstwo times a day for 4 days, THEN [...] mouth daily for 5 days.^Disp: 10 tablet^Rfl: 0(Patient not taking: Reported on 11/11/2023) Pain today: [...] tones. BP as documented. No significant murmur. NormalP2 . Good hand perfusion. ABD: Abdomen soft, non-tender. Not visually distended. Musculoskeletal: normal gait grossly, no acute synovitis. Ext: No deformities, no edema, or skin discoloration. adequate capillary refill < 3 sec. Neuro: Nonfocal. Alert. Speech intact. No gross cerebellar dysfunction. Labs / Imaging / Diagnostic Studies: All radiography/labs listed below personally reviewed and analyzed by me CBC with diff: No results found for this basename: WBC,RBC,HB,HCT,MCV,MCH,MCHC,RDWCV,PLT,MPV,NEUTP,LYMPHP,MONOP,EOD INP,BASOP,ABSNEUT,ABSLYM,ABSMONO,ABSEOSIN,ABSBASO CBC with diff: No results found for: [...] DATE OF EXAM: Sep 02 2023 1:21PM [facility] [place] [facility] [place] CT CHEST WO IVCON / [...] No abnormality in the imaged upper abdomen. Roofing Tile Sorter (topogram) images: No additional findings. Impression: IMPRESSION: [...] obtained in 12 months --END OF FINDING-- Litigation Attorney: YAIR Transcribe Date/Time: Sep 05 2023 11:40A Dictated by : WILLIAM QUINTANA MD This examination was interpreted and the report reviewed and electronically signed by: WILLIAM QUINTANA MD on Sep 05 2023 11:47AM EST No results found. Echo: No results found for this or any previous visit (from the past 49781 hour(s)). Vaccines: Immunization History Administered Date(s) Administered tetanus diphtheria pertussis (Tdap) vaccine, age 7+ yr (ADACEL, BOOSTRIX) 06/14/2023 Assessment: Mr. Bills is a 63 year old male who [facility] for evaluation of allergic asthma and tobacco [...] trapping, normal TLC. Normal FEV1/FVC but low [id number]. Chest CT with multiple sub<6mm lung nodules. [...] I personally spent 8 minutes counseling Elis Dumont Sanju. Counseling methods included were NRT and chantix. [...] [facility] Pager / phone [phone] November 11, 2023 1139 documented in this encounterSub[facility] Instructions* Patient Instructions* Bertha Kaur APRN.CNP - 10/29/2023 4:27 PM EDT Ice and heat as tolerated Activity as tolerated documented in this encounterSub[facility] History of Present illness Narrative* Bertha Kaur APRN.CNP - 10/29/2023 3:15 PM EDT VIRTUAL VISIT PROGRESS NOTE This is a virtual visit using Audio Only Visit. It required patient-provider interaction for the medical decision making as documented below. I have communicated my name and active licensure. The patient's identity and physical location wereverified at the time of this visit. Either the patient or their legal retail sales representative has been informed of the risks and benefits of -- and alternatives to -- treatment through a remote evaluation andconsents to proceed with the evaluation remotely. Elis [...] once daily for 3 days, THEN 0.5 tabletstwo times a day for 4 days, THEN [...] bid for 4 days then daily for 4days then stop. Normal, Disp-24 tablet, R-0 Dx: 1. Lumbar spondylosis MRI LUMBAR SPINE WO [facility] Routine As patient did not get relief from the medial branch nerve block we will abort the planned to continue with the series and abort the RFA plan. Patient stated understanding. Patient sent stating that he did have physical therapy at [facility] which is [facility] of [facility]. Will get the notes from [facility] and order an MRI of the lumbar spine. Patient has never had back surgery this will be done without contrast. Patient reporting that he is miserable stating that he would like disability that he is having a hard time working because of the pain, I will attempt to manage his pain short-term with another roundof steroid to see if it will help bring the pain level down. Patient is to follow-up in 1 month however if the patient can get in for the MRI sooner we will seehim sooner. Patient Instructions Ice and heat as tolerated Activity as tolerated I spent a total of 31 minutes on the date of the service which included preparing to see the patient, completing clinical documentation, obtaining and/or reviewing separately obtained history, counseling and educating the patient/family/caregiver, ordering medications, tests, or procedures, and comm unicating with other HCPs (not separately reported) Bertha Kaur APRN.PROFESSOR OF MARKETING documented in this encounterSuburban [facility]04-11-[facility] History of Present illness Narrative* Dhiraj Herr MD - 10/28/2023 11:45 AM EDT [facility] Date: 10/28/2023 Patient name: Elis Bills Physician [...] who presents today, in pain, for the procedurenoted above. Review of Systems: Pertinent Positives: MSK: pain in the region being treated Neuro: no weakness or numbness in the region being treated Skin: Negative (No itching) Eyes: Negative (No blurred or double vision) Respiratory: Negative (No Cough, Ziasiujid-vx-rzuest, Dyspnea on exertion, wheezing) Cardiovascular: Negative (No [...] once daily for 3 days, THEN 0.5 tabletstwo times a day for 4 days, THEN [...] appropriate Assessment and Plan: As noted above Florence protocol documentation / Pre-Procedure Checklist: Consent: Obtained [...] written consent to proceed and was transported intothe procedure room Surgical/Procedure pause or Time Out : Time Out was led by the physician in the procedure room, with the patient and all staff present andparticipating The following information was verified during the [...] of the lumbar facet joints could be fluoroscopicallyvisualized, and the correct position of the needle [...] MD Pain Management [facility] * Ian Fride LPN - 10/28/2023 9:38 AM EDT Review of Systems Constitutional: Positive for activity [...] patient is not nervous/anxious. documented in this encounterSub[facility]04-11-20[facility] Nurse Note* Jael Lamas LPN - 10/28/2023 10:00 AM EDT Order has been placed in the patient's [...] ambulatory method. Patient left in good condition. * Karthik Lopez LPN - 10/28/2023 9:39 AM EDT Procedure to be performed: BILATERAL L4/L5, L5/S1 LUMBAR MEDIAL BRANCH BLOCK Patient was wheeled on stretcher from pre op bay to procedure room and assisted onto the procedure tablePatient s procedure was performed in an [facility] Procedure room. Pause completed at each level [...] allergies Procedure Start: 950 Procedure End: 956 * Ian Fried LPN - 10/28/2023 9:33 AM EDT Jira Developer's Name: mehreen Are you on a blood [...] to receive one? n documented in this encounterSub[facility]04-11-2024 Instructions* Patient Instructions* Jael Lamas LPN - 10/28/2023 9:52 AM [...] If medically acceptable, take over the counter anti- inflammatories such as ibuprofen or Aleve if needed for post procedure discomfort., No hot baths,hot tubs or hot compresses for 24 hours., [...] emergency care and why. documented in this encounterSub[facility]04-02-2024 Miscellaneous Notes* Telephone Encounter - Dalia Merritt - 10/19/2023 9:53 AM EDT Rx mail pharmacy faxed requesting the following [...] two times a day. Patient Phone numbers: [phone] (home) Request is for script(s) to be escript to mail order [facility]. Dalia Merritt documented in this encounterSuburban [facility]03-25-2024 Miscellaneous Notes* Telephone Encounter - Edel Cramer - 10/11/2023 1:41 PM EDT Pharmacy faxed requesting the following refill. Patient [...] by mouth as needed. Patient Phone numbers: [phone] (home) Request is for script(s) to be escript to mail order [facility]. Edel Cramer documented in this encounterSuburban [facility]03-13-2024 Miscellaneous Notes* Telephone Encounter - Bertha Kaur APRN.CNP - 09/29/2023 12:29 PM EDT I will send in a medrol dose lalo to see if this will help. documented in this encounterSuburban [facility] Hospital [facility]03-07-2024 Miscellaneous Notes* Telephone Encounter - Albertina Martin - 09/23/2023 8:55 AM EST Procedure(s) being scheduled: B/L MBNB L4-L5, L5-S1 [...] 9. Does this procedure require a company driver? Yes If yes, has patient been notified that a company driver is needed and must be present [...] days prior to their first dose of theCOVID vaccine. They should not receive any procedure containing steroids in the time frame between their 1st and 2nd doses of the COVID vaccine. They should not receive a procedure containing steroids 14 days after their 2nd dose of the COVID vaccine.) Albertina Martin documented in this encounterSuburban [facility]03-07-2024 Instructions* Patient Instructions* Bertha Kaur APRN.CNP - 09/23/2023 8:52 AM EST Ice and heat as tolerated Activity as tolerated documented in this encounterSuburban [facility]03-07-2024 History of Present illness Narrative* Licha Montenegro MA - 09/23/2023 8:04 AM EST Review of Systems Constitutional: Negative for activity change, chills, fever and unexpected weight change. Gastrointestinal: Negative for bowel retention or incontinence Genitourinary: Negative for difficulty urinating. Negative for bladder retention or incontinence Musculoskeletal: Positive for arthralgias, back pain, gait problem and myalgias. Negative for jointswelling, neck pain and neck stiffness. Neurological: Negative for weakness, numbness and headaches. Psychiatric/Behavioral: Positive for sleep disturbance. Negative for dysphoric mood and suicidal ideas. The patient is not nervous/anxious. * Bertha Kaur APRN.NABOR - 09/23/2023 8:00 AM EST Images from the original note were not included. [facility] Today's Date: 09/23/2023 Name: Elis Bills : 1960 Purpose: New Patient Consultation Chief complaint: low back pain Referring Clinician: Pertinent Past Medical History: COPD, Obesity, HTN, HLD, CVA Pertinent Past Surgeries: B/L THR History of Present Illness (HPI): 09/22/2023 - Initial HPI (Obtained by Bertha Kaur CNP). DURATION AND ONSET: The pain complaint [...] back pain without radicular symptoms. Patient stating thathe has had an x-ray of his lumbar spine but no MRI. Patient stating that he has had an injection into his low back, with no relief. Patient states he did not care for the explanation of the next planof care from this provider and so he is changing pain management. Patient has done recent physical therapy. 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 No [...] good overall alignment in the coronal and sagittalplanes. Degenerative changes at multiple levels with loss [...] and review of assessment educated the pt regardingthe MBNB series. Pt agrees to this plan. Will get notes from the prior pain management but from patient's description it appears the patientdid have a caudal injection done. Diagnoses: (M47.816) [...] guidance BILATERAL SIDES at L4-5 and L5-S1 Jira Developer Needed: Medial Branch Blocks - YES Anticoagulants: None, Plavix (7 days when hold needed) Relevant Allergies: None Additional Info: None Studies: None Functional Pentecostal: NONE Referrals: No additional considerations at present [...] medical decision making from today's date. Bertha Kaur APRN.CNP Pain Management [facility] documented in this encounterSuburban Community Hospital [facility]02-15-2024 Miscellaneous Notes* [facility] - Ermias Hahn RT(R) - 09/02/2023 1:15 PM EST Radiology Service Progress Note PATIENT NAME: Elis Bills DATE OF SERVICE: September 02, 2023 TIME: 1:16 PM PATIENT IDENTITY VERIFICATION COMPLETED USING TWO (2) IDENTIFIERS: Name and Date of confirmedby patient verbally and Name and Date of confirmed by identification band. FALL SCREENING: Has the patient had 2 falls in the last year or 1 fall with injury or currently using an Ambulatory Assistive Device (Walker, Cane, Wheelchair, Crutches, etc.)? No PATIENT GENDER DATA: Male PATIENT RELEVANT IMPLANT DATA REVIEWED: Yes PATIENT PRESENTS WITH AN IMPLANTABLE OR ATTACHED RDA: No RADIOLOGY DEPARTMENT: CT; Exam(s) Completed: Chest PERIPHERAL IV DATA: Not applicable SIGNED BY: RT Chyna(Yareli) September 02, 2023 1:16 PM documented in this encounterSuburban Community Hospital & [facility]02-15-2024 Procedure note* Boo Camarillo, CECY - 09/02/2023 11:54 AM ESTAssociated Order(s): NITRIC OXIDE, EXHALED RESPIRATORY THERAPY ORAL EXHALED [...] 2023 TIME: 11:54 AM documented in this encounterSuburban Community Hospital & [facility]02-15-[facility]24 History of Present illness Narrative* Boo Camarillo RRT - 09/02/2023 11:52 AM EST PULM FUNCTION SMARTBLOCK: Provider: Shelton Flores MD Assisting Tech: Boo Camarillo RRT DLCO: 1 LV - Box: 1 Exhaled Nitric Oxide: 1 documented in this encounterSuburban Community Hospital & [facility]02-08-2024 Miscellaneous Notes* Telephone Encounter - Lisa Allison RN - 08/26/2023 11:45 AM EST Images from the original note were not included. Shelton Flores MD P [facility] Pulm Nurse Pool Please instruct patient The blood work shows signs of inflammation. Although no specific allergies found, I feel you have acombination of asthma and COPD. Please keep using your inhalers as instructed. We will follow up as discussed on the last visit. Please feel free to reach out ( ) if any further questions arise. Please send a reply to this message to ensure you read it. Best regards Shelton Womack MD Pt notified. Lisa Allison RN documented in this encounterSuburban Community Hospital [facility]02-06-2024 Miscellaneous Notes* Telephone Encounter - Lisa Allison RN - 08/24/2023 10:32 AM EST Images from the original note were not included. Shelton Flores MD P [facility] Pulm Nurse Pool Please instruct the patient. The breathing test shows possible mild restriction. Possible mild weakness on move air inside. Theblood work shows high levels of allergies and inflammation. Please use the inhalers as instructed, we will discuss next steps on the following visit based on your response to the treatment. Thank you Shelton Notified pt of results, verbalized understanding Lisa Allison RN documented in this encounterSuburban Community Hospital [facility]02-06-2024 Miscellaneous Notes* Telephone Encounter - Dalia Merritt - 08/24/2023 8:12 AM EST Nebulizer order signed & faxed back to [facility]. Dalia Merritt documented in this [address]02-2024 Miscellaneous Notes* Telephone Encounter - Edel Cramer - 08/20/2023 3:02 PM EST Nebulizer order, office note, insurance cards and demo sheet faxed to [facility]. Edel Cramer documented in this [facility]02-02-2024 History of Present illness Narrative* Lorena Damon - 08/20/2023 9:58 AM EST PULM FUNCTION SMARTBLOCK: Provider: Shelton Flores MD Spirometry: 1 documented in this [facility] summary Author Antonio Parker [facility] Note Date/Time March 05, 2025 4: 26pm [facility] Medical Records Department [address] [place] [address] Instructions for Home/Discharge Instructions 03/05/25 1620 MR#: [id number] Acct: [id number] Name: ELIS BILLS Rep #:[id number] : 1960 64 From: Antonio Parker DO PCP: Anna Sanders PA-C Status:ADM IN Discharge Instructions DC O2, CPAP, BIPAP needs Home O2 Discharge instructions: No Dressing / Incision Discharge Activity: Return to Normal Activity Weight Bearing Status: Full weight bearing Follow Up Care Test Results: Test results from this visit will be discussed in further detail at your follow- up appointment, if applicable. Discharge Plan Admission Admit Date/Time: 02/27/25 00:37 Primary Reason for Your Visit: Aspiration pneumonia Attending Provider: Antonio Parker Primary Care Provider: Anna Sanders Consulting Providers: Mechelle Maya; Maira Yeh; Armani Tolbert; Pilar Gannon Discharge Orders/Prescriptions Prescriptions: New prednisone 20 mg Tablet 20 mg PO BIDCM Qty: 10 0RF Rx Instructions: 1 twice a day for 5 days starting 03/06/2025 then stop the medication furosemide [Lasix] 40 mg tablet 40 mg PO DAILY Qty: 7 0RF Rx Instructions: 1 daily for 5 to 7 days for water retention potassium chloride [Klor-Con 10] 10 mEq tablet extended release 20 meq PO DAILY Qty: 14 0RF Rx Instructions: Take 2 tabs once a day while taking furosemide for water retention Continued atorvastatin 80 mg tablet 80 mg PO DAILY clopidogrel 75 mg tablet 75 mg PO DAILY lisinopril 2.5 mg tablet 2.5 mg PO DAILY ipratropium-albuterol 0.5 mg-3 mg(2.5 mg base)/3 mL solution for nebulization 3 ml continuous nebulization Q4H PRN PRN (Reason: wheezing) esomeprazole magnesium 40 mg capsule,delayed release(DR/EC) 40 mg PO DAILY folic acid 1 mg tablet 1 mg PO DAILY thiamine HCl (vitamin B1) 100 mg tablet 100 mg PO DAILY umeclidinium-vilanterol [Anoro Ellipta] 62.5-25 mcg/actuation blister with device 1 ea INHALATION DAILY montelukast 10 mg tablet 10 mg PO DAILY Referrals / Follow Up: Pilar Lanza DO [Non-Staff] - Anna Sanders PA-C [Primary Care Provider] - Within 2 Weeks Disposition Disposition (needs filled in before D/C Order can be placed): Home Health Service 03/05/25 1626<Electronically signed by Antonio Parker DO>Antonio Parker DO CC: STEVE Sanders; Dr. Armani Tolbert DO; Dr. Mechelle Maya DO; Dr. Maira Yeh MD; Dr. Pilar Gannon MD ~ Signed [facility] Work Phone: Evaluation noteNo assessment information available [facility] Work Phone: Evaluation note* Diagnosis Dyspnea, unspecified type [facility]* Diagnosis Chronic obstructive pulmonary disease, unspecified COPD type (HCC) [facility]* Diagnosis Wheezing [facility]* Diagnosis Lumbar spondylosis- Primary Lumbosacral spondylosis without myelopathy Chronic bilateral low back pain with sciatica, sciatica laterality unspecified documented in this [facility]* Diagnosis Chronic obstructive pulmonary disease, unspecified COPD type (HCC)- Primary [facility]* Diagnosis Lumbar spondylosis- Primary Lumbosacral spondylosis without myelopathy documented [facility] this [facility]* Diagnosis Lumbar spondylosis- Primary Lumbosacral spondylosis without myelopathy Chronic bilateral low back pain with sciatica, sciatica laterality unspecified Spinal 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 Spinal stenosis, lumbar region, without neurogenic claudication [facility]* Diagnosis Abnormal finding of diagnostic imaging- Primary Other nonspecific (abnormal) findings on radiological and other examinations of body structure documented in this [facility]* Diagnosis Lung nodules- Primary Other nonspecific abnormal finding of lung field Severe persistent asthma, unspecified whether complicated Tobacco use disorder Morbid obesity (HCC) Morbid obesity documented in this [facility]* Diagnosis Spinal 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 Spinal stenosis, lumbar region, without neurogenic claudication [facility]* Diagnosis Lumbar spondylosis- Primary Lumbosacral spondylosis without myelopathy Spinal 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 Spinal stenosis, lumbar region, without neurogenic claudication documented in this encounter [facility]* Diagnosis Severe persistent asthma, unspecified whether complicated- Primary [facility]* Diagnosis Lumbar spondylosis- Primary Lumbosacral spondylosis without myelopathy documented in this [facility]* Diagnosis Lumbar spondylosis- Primary Lumbosacral spondylosis without myelopathy [facility] [facility] Lung nodules Other nonspecific abnormal finding of lung field [facility] Diagnosis Lung nodules Other nonspecific abnormal finding of lung field Severe persistent asthma, unspecified whether complicated [facility] Diagnosis Lumbar spondylosis- Primary Lumbosacral spondylosis without myelopathy Spinal 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 Spinal stenosis, lumbar region, without neurogenic claudication Chronic bilateral low back pain with sciatica, sciatica laterality unspecified [facility]* Diagnosis Lumbar radiculopathy- Primary Thoracic or lumbosacral neuritis or radiculitis, unspecified documented [facility] Diagnosis Lumbar spondylosis- Primary Lumbosacral spondylosis without myelopathy Lumbar radiculopathy Thoracic or lumbosacral neuritis or radiculitis, unspecified Spinal stenosis, lumbar region, without neurogenic claudication documented [facility] Diagnosis Low back pain, unspecified back pain laterality, unspecified chronicity, unspecified whether sciatica present- Primary [facility]* Diagnosis Lumbar spondylosis- Primary Lumbosacral spondylosis without myelopathy [facility] Diagnosis Lumbar spondylosis- Primary Lumbosacral spondylosis without myelopathy Spinal stenosis, lumbar region, without neurogenic claudication documented [facility]* Diagnosis Lumbar spondylosis- Primary Lumbosacral spondylosis without myelopathy documented [facility]* Diagnosis APPOINTMENT CANCELLED- Primary documented in [facility] Diagnosis Spinal stenosis of lumbar region with neurogenic claudication- Primary Spinal stenosis, lumbar region, with neurogenic claudication documented [facility] Diagnosis Low back pain, unspecified back pain laterality, unspecified chronicity, unspecified whether sciatica present documented [facility] Diagnosis Spinal stenosis of lumbar region with neurogenic claudication- Primary Spinal stenosis, lumbar region, with neurogenic claudication Spinal stenosis of lumbar region with neurogenic claudication Spinal stenosis, lumbar region, with neurogenic claudication [facility] Diagnosis [...] with neurogenic claudication [facility]* Diagnosis [...] in today's visit. documented in this encounter [facility]* Diagnosis Pre-op examination- Primary Preoperative examination, [...] with neurogenic claudication documented in this encounter [facility] note* Diagnosis Pre-op examination- Primary Preoperative examination, [...] without neurogenic claudication [facility]* Diagnosis [...] Other postprocedural status documented [facility] this [facility]* Diagnosis [...] Other postprocedural status [facility]* Diagnosis [...] Other postprocedural status documented in this [facility] Diagnosis COPD exacerbation (HCC)- Primary Obstructive [...] (BMI) 39.0-39.9, adult [facility] Diagnosis Onset Date Resolution Status Admit Date Altered mental status acute Aug us2024 12:37am Fever acute February 27, 2 025 12:37am Hyponatremia acute February 27, 2025 12:37am Leukocytosis acute February 27, 2025 12:37am Alcohol abuse chronic February 12:37am [facility] Work Phone: Reason for referral (narrative)* Diagnostic Procedure Only (Routine) - Pending Review Specialty Diagnoses / Procedures Referred By Contac t Referred To Contact [facility] Diagnoses Lung nodules Severe persistent asthma, unspecified whether complicated Procedures HOME SLEEP APNEA TEST (HSAT) SLEEP STD AIRFLOW HRT RATE&O2 SAT EFFORT UNATT Shelton Flores MD [address] [place] [address] [facility] [place] [address] Referral ID Status Reason Start Date Expiration Date Visits Requested Visits Authorized [id number] Pending Review Auto-Generat ed Referral 11/11/2023 11/10/2024 1 1 * Consult, Test, Treat (Routine) - Authorized Specialty Diagnoses / Procedures [facility] Referred To Contact Allergy Diagnoses Severe persistent asthma, unspecified whether complicated Procedures CONSULT TO ALLERGY/IMMUNOLOGY OFFICE/OUTPATIENT NEW HIGH MDM 60 MINUTES Shelton Flores MD [address] [place] [address] Referral ID Status Reason Start Date Expiration Date Visits Requested Visits Authorized [id number] Authorized PCP Requested Referral 11/11/2023 11/10/2024 1 1 * Outpatient Procedure (Routine) - Authorized Specialty Diagnoses / Procedures [facility] Diagnoses Lung nodules Severe persistent asthma, unspecified whether complicated Procedures ECHO ECHO TTHRC R-T 2D W/WOM-MODE COMPL SPEC&COLR D Shelton Flores MD [address] [place] [address] [facility] [address] [place] [address] Referral ID Status Reason Start Date Expiration Date Visits Requested Visits Authorized [id number] Authorized Auto-Generat ed Referral 11/11/2023 11/10/2024 1 1 * MRI/CT (Routine) - Authorized Specialty Diagnoses / Procedures [facility] Referred To Contact CT IMAGING Diagnoses Lung nodules Procedures CT CHEST WO IVCON DIAGNOSTIC COMPUTED TOMOGRAPHY THORAX W/O CNTRST Shelton Flores MD [address] [place] [address] Ct Imaging [facility] Referral ID Status Reason Start Date Expiration Date Visits Requested Visits Authorized [id number] Authorized Auto-Generat ed Referral 11/11/2023 12/10/2024 1 1 [facility] for referral (narrative)* Outpatient Procedure (Routine) - Closed Specialty Diagnoses / Procedures Referred By Contac t Referred To Contact [facility] Diagnoses Lung nodules Severe persistent asthma, unspecified whether complicated Procedures ECHO ECHO TTHRC R-T 2D W/WOM-MODE COMPL SPEC&COLR D Shelton Flores MD [address] [place] [address] [facility] [address] [address] Referral ID Status Reason Start Date Expiration Date V isits Requested Visits Authorized [id number] Closed Auto-Generate d Referral 11/11/2023 11/10/2024 1 1 [facility] for referral (narrative)* Diagnostic Procedure Only (Routine) - Authorized Specialty Diagnoses / Procedures Referred By Contac t Referred To Contact XR IMAGING Diagnoses Low back pain, unspecified back pain laterality, unspecified chronicity, unspecified whether sciatica present Procedures XR LUMBAR MOTION 4V AP/LAT/ FLEX/EXT RADEX SPINE LUMBOSACRAL MINIMUM 4 VIEWS Lois Hoang MD [address] [place] [address] [place] [id number] Referral ID Status Reason Start Date Expiration Date Visits Requested Visits Authorized [id number] Authorized Auto-Generat ed Referral 04/06/2024 05/06/2025 1 1 * Diagnostic Procedure Only (Routine) - Authorized Specialty Diagnoses / Procedures Referred By Contac t Referred To Contact XR IMAGING Diagnoses Low back pain, unspecified back pain laterality, unspecified chronicity, unspecified whether sciatica present Procedures XR LUMBAR LIMITED 2V AP/LAT RADEX SPINE LUMBOSACRAL 2/3 VIEWS Lois Hoang MD [address] [place] [address] [place] [id number] Referral ID Status Reason Start Date Expiration Date Visits Requested Visits Authorized [id number] Authorized Auto-Generat ed Referral 04/04/2024 05/04/2025 1 1 [facility] for referral (narrative)* Outpatient Procedure (Routine) - New Request Specialty Diagnoses / Procedures Referred By Contac t Referred To Contact [facility] Diagnoses Spinal stenosis of lumbar region with neurogenic claudication Procedures ECG COMPLETE ECG ROUTINE ECG W/LEAST 12 LDS W/I&R Lois Hoang MD [address] [place] [address] [facility] [address] [place] [address] Referral ID Status Reason Start Date Expiration Date Visits Requested Visits Authorized [id number] New Request Auto-Generat ed Referral 07/14/2025 1 1 [facility] for referral (narrative)* Diagnostic Procedure Only (Routine) - Pending Review Specialty Diagnoses / Procedures Referred By Contac t Referred To Contact XR IMAGING Diagnoses S/P lumbar laminectomy Procedures XR LUMBAR LIMITED 2V FLEX/EXT RADEX SPINE LUMBOSACRAL 2/3 VIEWS Lois Hoang MD [address] [facility] [place] [address] [place] [id number] Referral ID Status Reason Start Date Expiration Date Visits Requested Visits Authorized [id number] Pending Review Auto-Generat ed Referral 08/10/2024 09/09/2025 1 1 [facility] for referral (narrative)No reason for referral information [facility] Work [facility] Narrative* Outpatient Procedure (Routine) - Closed Specialty Diagnoses / Procedures Referred By Contac t Referred To Contact [facility] Diagnoses Lung nodules Severe persistent asthma, unspecified whether complicated Procedures ECHO ECHO TTHRC R-T 2D W/WOM-MODE COMPL SPEC&COLR D Shelton Flores MD [address] [place] [address] [facility] [address] [place] [address] Referral ID Status Reason Start Date Expiration Date V isits Requested Visits Authorized [id number] Closed Auto-Generate d Referral 11/11/2023 11/10/2024 1 1 [facility] for visit Narrative* Diagnostic Procedure Only (Routine) - Closed Specialty Diagnoses / Procedures Referred By [facility] Referred To Contact XR IMAGING Diagnoses Low back pain, unspecified back pain laterality, unspecified chronicity, unspecified whether sciatica present Procedures XR LUMBAR MOTION 4V AP/LAT/ FLEX/EXT RADEX SPINE LUMBOSACRAL MINIMUM 4 VIEWS Lois Hoang MD [address] [place] [address] [place] [id number] Referral ID Status Reason Start Date Expiration Date V isits Requested Visits Authorized [id number] Closed Auto-Generate d Referral 04/06/2024 05/06/2025 1 1 [facility] for visit Narrative* Auth/Cert (Routine) Specialty Diagnoses / Procedures Referred By [facility] Referred To Contact Case Management Diagnoses Respiratory distress, hypoxia, pneumonia Procedures n/a Aura Wagner MD [address] [place], [place] [address] [place] [address] Phone: tel: fax: [employer] [place] [address] Phone: tel: Referral ID Status Reason Start Date Expiration Date Visits Re quested Visits Authorized [id number] 3 3 [facility] Summary Purpose Family History Relationship Condition Age at Onset Recorded Date/T tana Unknown Family History?- Unknown April 5:35am Family History?Cancer Unknown Novemb er 2016 10:44am Relationship Condition Age at Onset Recorded Date/T tana Unknown Family History?- Unknown April 4:35am Family History?Cancer Unknown Novemb er 2016 9:44am Advance Directives Date Activated Date Inactivated Comments 12/07/2024 1:57 [...] No April 22 9 7:56pm Power of Compliance Officer No April 22 019 7:56pm Advance Directive Response Recorded Date/ Time Living Will No March 22 022 11:25am Power of Compliance Officer No March 22, 2022 11:25am Latest Code Status on File Code Status Date Activated Date Inactivated Comments Full Code 04/23/2019 9:16 PM 04/24/2019 5:53 PM Question Answer Comments Documentation of decision process for this code status: Discussed with patient or surrogate. This is the code status chosen by the patient/surrogate. Advance Directive Response Recorded Date/ Time Living Will No March 22 022 10:25am Power of Compliance Officer No March 22, 2022 10:25am Date Activated [...] patient/surrogate. Advance Directive Response Recorded Date/ Time Do you have a Healthcare Power of Compliance Officer? No February 26, 2025 8:56pm Advance Directive Response Recorded Date/ Time Do you have a Healthcare Power of Compliance Officer? No February 27, 2025 2:01am Chief Complaint and Reason for Visit Chief Complaint HAND Chief Complaint SPINAL STENOSIS. RX HERE SOB/COUGH Chief Complaint SOB/COUGH Chief Complaint Admit Date FEVER,LEUKOCYTOSIS,AMS, ETOH ABUSE & REC ENT FALL February 27, 2025 12:37am Reason for Visit Admit Date Altered mental status February 27, 2025 12:37am Fever February 27, 2025 12 :37am Hyponatremia February 27, 2025 12 :37am Leukocytosis February 27, 2025 12 :37am Alcohol abuse February 27, 2025 12 :37am Chief Complaint Admit Date FEVER,LEUKOCYTOSIS,AMS, ETOH ABUSE & REC ENT FALL February 27, 2025 12:37am FEVER,LEUKOCYTOSIS,AMS, ETOH ABUSE & REC ENT FALL February 28, 2025 3:17am FEVER,LEUKOCYTOSIS,AMS, ETOH ABUSE & REC ENT FALL March 01, 2025 11:52am FEVER,LEUKOCYTOSIS,AMS, ETOH ABUSE & REC ENT FALL March 02, 2025 10:58am FEVER,LEUKOCYTOSIS,AMS, ETOH ABUSE & REC ENT FALL March 03, 2025 6:53pm FEVER,LEUKOCYTOSIS,AMS, ETOH ABUSE & REC ENT FALL March 04, 2025 6:39pm Reason for Visit Admit Date Acute hypoxic respiratory failure February 27, 2025 12:37am Acute metabolic encephalopathy February 272024 12:37am Altered mental status February 27, 2025 12:37am Aspiration pneumonia February 27, 2025 1 2:37am Fever February 27, 2025 12 :37am Hyponatremia February 27, 2025 12 :37am Leukocytosis February 27, 2025 12 :37am Obesity (BMI 30-39.9) February 27, 2025 12:37am Sepsis February 27, 2025 12 :37am Tobacco abuse February 27, 2025 12 :37am Alcohol abuse February 27, 2025 12 :37am Reason for Referral Specialty Diagnoses / Procedures Referred By Contac t Referred To Contact MR IMAGING Diagnoses Spinal 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 Procedures MRI LUMBAR SPINE WO IVCON MRI SPINAL CANAL LUMBAR W/O CONTRAST MATERIAL PreBertha phan, PROCESS TRAINER.PROFESSOR OF MARKETING [address] [place] [address] [place] [id number] Referral ID Status Reason Start Date Expiration Date Visits Requested Visits Authorized [id number] Pending Review Auto-Generat ed Referral 10/29/2023 11/27/2024 1 1 Referral ID Status Reason Start Date Expiration Date V isits Requested Visits Authorized [id number] Closed Auto-Generate d Referral 10/29/2023 11/27/2024 1 1 Specialty Diagnoses / Procedures Referred By Contac t Referred To Contact Neurosurgery Diagnoses Lumbar spondylosis Spinal stenosis, lumbar region, without neurogenic claudication Procedures CONSULT TO NEUROSURGERY OFFICE/OUTPATIENT [facility] MDM 60 MINUTES PreBertha phan, PROCESS TRAINER.PROFESSOR OF MARKETING [address] [facility] [address] [place] [address] Oziel Edwards I, MD [address] [place] [address] [place] [address] Referral ID Status Reason Start Date Expiration Date Visits Requested Visits Authorized [id number] Authorized PCP Requested Referral 03/30/2024 06/28/2024 1 1 Specialty Diagnoses / Procedures Referred By Contac t Referred To Contact [facility] Diagnoses S/P lumbar laminectomy Procedures CONSULT TO PHYSICAL THERAPY PHYSICAL THERAPY EVALUATION HIGH COMPLEX 45 MINS Lois Hoang MD [address] [place], [place] [address] [place] [address] [facility] [address] [place] [address] Referral ID Status Reason Start Date Expiration Date Visits Requested Visits Authorized [id number] Pending Review Auto-Generat ed Referral 08/25/2024 08/25/2025 1 1 Additional Source Comments (unrecognized sect ion and content) No Status Records FoundNo Status Records FoundNo Status Records FoundNo Status Records FoundNo Status Records FoundNo Status Records Found INFORMATION SOURCE (unrecogn ized section and content) DATE CREATED AUTHOR 12/30/2019 [facility] ([place]) DATE CREATED AUTHOR AUTHOR'S ORGANIZ ATION 09/06/2023 [facility] DATE CREATED AUTHOR AUTHOR'S ORGANIZ ATION 10/30/2024 [facility] DATE CREATED AUTHOR AUTHOR'S ORGANIZ ATION 11/21/2024 [facility] DATE CREATED AUTHOR AUTHOR'S ORGANIZ ATION 03/07/2025 [facility] DATE CREATED AUTHOR AUTHOR'S ORGANIZ ATION 03/09/2025 [facility] Goals (unrecognized section and content) Goals may [...] Active Member Role Status Dates Dr. Pilar Lanza DO Family Provider Active Dr. Pilar Lanza DO Primary Care Provider Active Team Status: Inactive Member Role Status Dates Dr. Pilar Lanza DO Primary Care Pro vider, Attending Provider, Referring Provider Active Team Status: Active Member Role Status Dates Dr. Pilar Lanza DO Primary Care Provider Active Dr. Juarez Luz DO Attending Provider Active [employer] Relationship Specialty Start Date End Date Pilar Lanza DO [address] [place] [address] PCP - General Family Medicine 06/14/23 [employer]pa Tax Relationship Specialty Start Date End Date Pilar Lanza DO [address] [place] [address] PCP - General Family Medicine 06/14/23 Cpa Tax Relationship Specialty Start Date End Date Pilar Lanza DO [address] [place] [address] PCP - General Family Medicine 06/14/23 Cpa Tax Relationship Specialty Start Date End Date Pilar Lanza DO [address] [place] [address] PCP - General Family Medicine 06/14/23 Cpa Tax Relationship Specialty Start Date End Date Pilar Lanza DO [address] [place] [address] PCP - General Family Medicine 06/14/23 Cpa Tax Relationship Specialty Start Date End Date Pilar Lanza DO [address] [place] [address] PCP - General Family Medicine 06/14/23 Cpa Tax Relationship Specialty Start Date End Date Pilar Lanza DO [address] [place] [address] PCP - General Family Medicine 06/14/23 Cpa Tax Relationship Specialty Start Date End Date Pilar Lanza DO [address] [place] [address] PCP - General Family Medicine 06/14/23 Cpa Tax Relationship Specialty Start Date End Date Pilar Lanza DO [address] [place] [address] PCP - General Family Medicine 06/14/23 Cpa Tax Relationship Specialty Start Date End Date Pilar Lanza DO [address] [place] [address] PCP - General Family Medicine 06/14/23 Cpa Tax Relationship Specialty Start Date End Date Pilar Lanza DO [address] [place] [address] PCP - General Family Medicine 06/14/23 Cpa Tax Relationship Specialty Start Date End Date Pilar Lanza DO [address] [place] [address] PCP - General Family Medicine 06/14/23 Cpa Tax Relationship Specialty Start Date End Date Pilar Lanza DO [address] [place] [address] PCP - General Family Medicine 06/14/23 Cpa Tax Relationship Specialty Start Date End Date Pilar Lanza DO [address] [place] [address] PCP - General Family Medicine 06/14/23 Cpa Tax Relationship Specialty Start Date End Date Pilar Lanza DO [address] [place] [address] PCP - General Family Medicine 06/14/23 Cpa Tax Relationship Specialty Start Date End Date Pilar Lanza DO [address] [place] [address] PCP - General Family Medicine 06/14/23 Cpa Tax Relationship Specialty Start Date End Date Pilar Lanza DO [address] [place] [address] PCP - General Family Medicine 06/14/23 Cpa Tax Relationship Specialty Start Date End Date Pilar Lanza DO [address] [place] [address] PCP - General Family Medicine 06/14/23 Cpa Tax Relationship Specialty Start Date End Date Pilar Lanza DO [address] [place] [address] PCP - General Family Medicine 06/14/23 Cpa Tax Relationship Specialty Start Date End Date Pilar Lanza DO [address] [place] [address] PCP - General Family Medicine 06/14/23 Cpa Tax Relationship Specialty Start Date End Date Pilar Lanza DO [address] [place] [address] PCP - General Family Medicine 06/14/23 Cpa Tax Relationship Specialty Start Date End Date Pilar Lanza DO [address] [place] [address] PCP - General Family Medicine 06/14/23 Cpa Tax Relationship Specialty Start Date End Date Pilar Lanza DO [address] [place] [address] PCP - General Family Medicine 06/14/23 Cpa Tax Relationship Specialty Start Date End Date Pilar Lanza DO [address] [place] [address] PCP - General Family Medicine 06/14/23 Cpa Tax Relationship Specialty Start Date End Date Pilar Lanza DO [address] [place] [address] PCP - General Family Medicine 06/14/23 Cpa Tax Relationship Specialty Start Date End Date Pilar Lanza DO [address] [place] [address] PCP - General Family Medicine 06/14/23 Cpa Tax Relationship Specialty Start Date End Date Pilar Lanza DO [address] [place] [address] PCP - General Family Medicine 06/14/23 Cpa Tax Relationship Specialty Start Date End Date Pilar Lanza DO [address] [place] [address] PCP - General Family Medicine 06/14/23 Cpa Tax Relationship Specialty Start Date End Date Pilar Lanza DO [address] [place] [address] PCP - General Family Medicine 06/14/23 Cpa Tax Relationship Specialty Start Date End Date Pilar Lanza DO [address] [place] [address] PCP - General Family Medicine 06/14/23 Cpa Tax Relationship Specialty Start Date End Date Pilar Lanza DO [address] [place] [address] (Fax) PCP - General Family Medicine 06/14/23 Cpa Tax Relationship Specialty Start Date End Date Pilar Lanza DO [address] [place] [address] (Fax) PCP - General Family Medicine 06/14/23 Cpa Tax Relationship Specialty Start Date End Date Pilar Lanza DO [address] [place] [address] PCP - General Family Medicine 06/14/23 Cpa Tax Relationship Specialty Start Date End Date Pilar Lanza DO [address] [place] [address] PCP - General Family Medicine 06/14/23 Cpa Tax Relationship Specialty Start Date End Date Pilar Lanza DO [address] [place] [address] PCP - General Family Medicine 06/14/23 Cpa Tax Relationship Specialty Start Date End Date Pilar Lanza DO [address] [place] [address] PCP - General Family Medicine 06/14/23 Cpa Tax Relationship Specialty Start Date End Date Pilar Lanza DO [address] [place] [address] PCP - General Family Medicine 06/14/23 Cpa Tax Relationship Specialty Start Date End Date Brooke Wu RN [address] [place] [address] [place] [address] Pin Inserter Regulator 10/27/24 Cpa Tax Relationship Specialty Start Date End Date Brooke Wu RN [address] [place] [address] [place] [address] Pin Inserter Regulator 10/27/24 Cpa Tax Relationship Specialty Start Date End Date Brooke Wu RN [address] [place] [address] [place] [address] Pin Inserter Regulator 10/27/24 Cpa Tax Relationship Specialty Start Date End Date Brooke Wu RN [address] [place] [address] [place] [address] Pin Inserter Regulator 10/27/24 Cpa Tax Relationship Specialty Start Date End Date Pilar Lanza DO [address] [place] [address] PCP - General Family Medicine 06/14/23 Cpa Tax Relationship Specialty Start Date End Date Veronica Butt PROCESS TRAINER-PROFESSOR OF MARKETING [address] [place] [place] [id number] DOOR MAKER Pulmonary Medicine 01/20/25 Team Status: Active Member Role/Relationship Status Dates Anna MORALES PA-C Primary Care Provider Active Team Status: Active Member Role/Relationship Status Dates Dr. Austin Perez DO Emergency Provider Active Start: February 27, 2025 Anna MORALES PA-C Primary Care Provider Active Start: February 27, 2025 Dr. Mechelle Maya DO Admit Provider Active Start: February 27, 2025 Dr. Mechelle Maya DO Attending Provider Active Start: February 27, 2025 Team Status: Inactive Member Role/Relationship Status Dates Dr. Austin Perez DO Emergency Provider Active Start: February 27, 2025 End: March 05, 2025 Anna MORALES PA-C Primary Care Provider Active Start: February 27, 2025 End: March 05, 2025 Dr. Mechelle Maya DO Admit Provider Active Start: February 27, 2025 End: March 05, 2025 Dr. Mechelle Maya DO Other Provider Active Start: February 27, 2025 End: March 05, 2025 Dr. Maira Yeh MD Other Provider Active St art: February 27, 2025 End: March 05, 2025 Dr. Antonio Parker DO Attending Provider Active Start: February 27, 2025 End: March 05, 2025 Dr. Armani Tolbert DO Other Provider Active Start: February 27, 2025 End: March 05, 2025 Dr. Pilar Gannon MD Other Provider Active Start: February 27, 2025 End: March 05, 2025 Dr. Sanya Reese DO Other Provider Active Start : February 27, 2025 Dr. Mechelle Srivastava MD Other Provider Active Sta rt: February 27, 2025 Dr. Jeyson Nguyễn MD Other Provider Active St art: February 27, 2025 Dr. Ruben King MD Other Provider Active S tart: February 27, 2025 Dr. Clarisse Flores MD Other Provider Active Start: February 27, 2025 Dr. Renny Mead MD Other Provider Active Start : February 27, 2025 Dr. Mesfin Wakefield MD Other Provider Active Start: February 27, 2025 Dr. Amos Rushing MD Other Provider Active Start : February 27, 2025 Dr. Ivonne Forbes MD Other Provider Active Star t: February 27, 2025 Dr. Master Elliott MD Other Provider Active Sta rt: February 27, 2025 Dr. Rachel Guzman MD Other Provider Active Sta rt: February 27, 2025 Dr. Jai Mitchell MD Other Provider Active Star t: February 27, 2025 Dr. Miguel Ambriz MD Other Provider Active St art: February 27, 2025 Dr. Evan Acosta MD Other Provider Active Star t: February 27, 2025 Dr. Jose A Anthony DO Other Provider Active St art: February 27, 2025 Dr. Ewa Merida MD Other Provider Active Start: February 27, 2025 Dr. Vincenzo Hernandez MD Other Provider Active St art: February 27, 2025 Dr. Raul Jack DO Other Provider Active Start: February 27, 2025 Dr. Gamal Calero MD Other Provider Active Star t: February 27, 2025 Dr. Alli Linares MD Other Provider Active Sta rt: February 27, 2025 Team Status: Active Member Role/Relationship Status Dates Dr. Austin Perez DO Emergency Provider Active Start: February 28, 2025 Anna MORALES PA-C Primary Care Provider Active Start: February 28, 2025 Dr. Mechelle Maya DO Admit Provider Active Start: February 28, 2025 Dr. Mechelle Maya DO Attending Provider Active Start: February 28, 2025 Dr. Mechelle Maya DO Other Provider Active Start: February 28, 2025 Dr. Maira Yeh MD Other Provider Active St art: February 28, 2025 Team Status: Active Member Role/Relationship Status Dates Anna MORALES PA-C Primary Care Provider Active Start: February 28, 2025 Dr. Lavinia Kee MD Attending Provider Active S tart: February 28, 2025 Team Status: Active Member Role/Relationship Status Dates Dr. Austin Perez DO Emergency Provider Active Start: March 01, 2025 Anna MORALES PA-C Primary Care Provider Active Start: March 01, 2025 Dr. Mechelle Maya DO Admit Provider Active Start: March 01, 2025 Dr. Mechelle Maya DO Other Provider Active Start: March 01, 2025 Dr. Andrew Bryan MD Other Provider Active Start: March 01, 2025 Dr. Tj Harris MD Other Provider Active Start: March 01, 2025 Dr. Mao Carmona MD Other Provider Active Star t: March 01, 2025 Dr. Sanya Reese , Other Provider Active Start : March 01, 2025 Dr. Mechelle Srivastava MD Other Provider Active Sta rt: March 01, 2025 Dr. Jeyson Nguyễn MD Other Provider Active St art: March 01, 2025 Dr. Ruben King MD Other Provider Active S tart: March 01, 2025 Dr. Clarisse Flores MD Other Provider Active Start: March 01, 2025 Dr. Renny Mead MD Other Provider Active Start : March 01, 2025 Dr. Mesfin Wakefield MD Other Provider Active Start: March 01, 2025 Dr. Amos Rushing MD Other Provider Active Start : March 01, 2025 Dr. Ivonne Forbes MD Other Provider Active Star t: March 01, 2025 Dr. Master Elliott MD Other Provider Active Sta rt: March 01, 2025 Dr. Rachel Guzman MD Other Provider Active Sta rt: March 01, 2025 Dr. Jai Mitchell MD Other Provider Active Star t: March 01, 2025 Dr. Miguel Ambriz MD Other Provider Active St art: March 01, 2025 Dr. Evan Acosta MD Other Provider Active Star t: March 01, 2025 Dr. Jose A Anthony DO Other Provider Active St art: March 01, 2025 Dr. Ewa Merida MD Other Provider Active Start: March 01, 2025 Dr. Vincenzo Hernandez MD Other Provider Active St art: March 01, 2025 Dr. Raul Jack DO Other Provider Active Start: March 01, 2025 Dr. Gamal Calero MD Other Provider Active Star t: March 01, 2025 Dr. Alli Linares MD Other Provider Active Sta rt: March 01, 2025 Dr. Armani Tolbert DO Attending Provider Active Start: March 01, 2025 Dr. Armani Tolbert DO Other Provider Active Start: March 01, 2025 Dr. Maira Yhe MD Other Provider Active St art: March 01, 2025 Dr. Pilar Gannon MD Other Provider Active Start: March 01, 2025 Team Status: Active Member Role/Relationship Status Dates Dr. Austin Perez DO Emergency Provider Active Start: March 02, 2025 DARINEL DaileyC Primary Care Provider Active Start: March 02, 2025 Dr. Mechelle Maya DO Admit Provider Active Start: March 02, 2025 Dr. Mechelle Maya DO Other Provider Active Start: March 02, 2025 Dr. Andrew Bryan MD Other Provider Active Start: March 02, 2025 Dr. Tj Harris MD Other Provider Active Start: March 02, 2025 Dr. Mao Carmona MD Other Provider Active Star t: March 02, 2025 Dr. Sanya Reese DO Other Provider Active Start : March 02, 2025 Dr. Mechelle Srivastava MD Other Provider Active Sta rt: March 02, 2025 Dr. Jeyson Nguyễn MD Other Provider Active St art: March 02, 2025 Dr. Ruben King MD Other Provider Active S tart: March 02, 2025 Dr. Clarisse Flores MD Other Provider Active Start: March 02, 2025 Dr. Renny Mead MD Other Provider Active Start : March 02, 2025 Dr. Mesfin Wakefield MD Other Provider Active Start: March 02, 2025 Dr. Amos Rushing MD Other Provider Active Start : March 02, 2025 Dr. Ivonne Forbes MD Other Provider Active Star t: March 02, 2025 Dr. Master Elliott MD Other Provider Active Sta rt: March 02, 2025 Dr. Rachel Guzman MD Other Provider Active Sta rt: March 02, 2025 Dr. Jai Mitchell MD Other Provider Active Star t: March 02, 2025 Dr. Miguel Ambriz MD Other Provider Active St art: March 02, 2025 Dr. Evan Acosta MD Other Provider Active Star t: March 02, 2025 Dr. Jose A Anthony , Other Provider Active St art: March 02, 2025 Dr. Ewa Merida MD Other Provider Active Start: March 02, 2025 Dr. Vincenzo Hernandez MD Other Provider Active St art: March 02, 2025 Dr. Raul Jack , Other Provider Active Start: March 02, 2025 Dr. Gamal Calero MD Other Provider Active Star t: March 02, 2025 Dr. Alli Linares MD Other Provider Active Sta rt: March 02, 2025 Dr. Armani Tolbert DO Attending Provider Active Start: March 02, 2025 Dr. Armani Tolbert DO Other Provider Active Start: March 02, 2025 Dr. Maira Yeh MD Other Provider Active St art: March 02, 2025 Dr. Pilar Gannon MD Other Provider Active Start: March 02, 2025 Team Status: Active Member Role/Relationship Status Dates Dr. Austin Perez DO Emergency Provider Active Start: March 03, 2025 Anna MORALES PA-C Primary Care Provider Active Start: March 03, 2025 Dr. Mechelle Maya DO Admit Provider Active Start: March 03, 2025 Dr. Mechelle Maya DO Other Provider Active Start: March 03, 2025 Dr. Maira Yeh MD Other Provider Active St art: March 03, 2025 Dr. Antonio Parker DO Attending Provider Active Start: March 03, 2025 Dr. Antonio Parker DO Other Provider Active S tart: March 03, 2025 Dr. Armani Tolbert DO Other Provider Active Start: March 03, 2025 Dr. Pilar Gannon MD Other Provider Active Start: March 03, 2025 Dr. Andrew Bryan MD Other Provider Active Start: March 03, 2025 Dr. Tj Harris MD Other Provider Active Start: March 03, 2025 Dr. Mao Carmona MD Other Provider Active Star t: March 03, 2025 Dr. Sanya Reese , Other Provider Active Start : March 03, 2025 Dr. Mechelle Srivastava MD Other Provider Active Sta rt: March 03, 2025 Dr. Jeyson Nguyễn MD Other Provider Active St art: March 03, 2025 Dr. Ruben King MD Other Provider Active S tart: March 03, 2025 Dr. Clarisse Flores MD Other Provider Active Start: March 03, 2025 Dr. Renny Mead MD Other Provider Active Start : March 03, 2025 Dr. Mesfin Wakefield MD Other Provider Active Start: March 03, 2025 Dr. Amos Rushing MD Other Provider Active Start : March 03, 2025 Dr. Ivonne Forbes MD Other Provider Active Star t: March 03, 2025 Dr. Master Elliott MD Other Provider Active Sta rt: March 03, 2025 Dr. Rachel Guzman MD Other Provider Active Sta rt: March 03, 2025 Dr. Jai Mitchell MD Other Provider Active Star t: March 03, 2025 Dr. Miguel Ambriz MD Other Provider Active St art: March 03, 2025 Dr. Evan Acosta MD Other Provider Active Star t: March 03, 2025 Dr. Jose A Anthony DO Other Provider Active St art: March 03, 2025 Dr. Ewa Merida MD Other Provider Active Start: March 03, 2025 Dr. Vincenzo Hernandez MD Other Provider Active St art: March 03, 2025 Dr. Raul Jack DO Other Provider Active Start: March 03, 2025 Dr. Gamal Calero MD Other Provider Active Star t: March 03, 2025 Dr. Alli Linares MD Other Provider Active Sta rt: March 03, 2025 Team Status: Active Member Role/Relationship Status Dates Dr. Austin Perez DO Emergency Provider Active Start: March 04, 2025 Anna MORALES PA-C Primary Care Provider Active Start: March 04, 2025 Dr. Mechelle Maya DO Admit Provider Active Start: March 04, 2025 Dr. Mechelle Maya DO Other Provider Active Start: March 04, 2025 Dr. Maira Yeh MD Other Provider Active St art: March 04, 2025 Dr. Antonio Parker , Attending Provider Active Start: March 04, 2025 Dr. Antonio Parker , DO Other Provider Active S tart: March 04, 2025 Dr. Armani Tolbert , Other Provider Active Start: March 04, 2025 Dr. Pilar Gannon MD Other Provider Active Start: March 04, 2025 Dr. Andrew Bryan MD Other Provider Active Start: March 04, 2025 Dr. Tj Harris MD Other Provider Active Start: March 04, 2025 Dr. Mao Carmona MD Other Provider Active Star t: March 04, 2025 Dr. Sanya Reese , DO Other Provider Active Start : March 04, 2025 Dr. Mechelle Srivastava MD Other Provider Active Sta rt: March 04, 2025 Dr. Jeyson Nguyễn MD Other Provider Active St art: March 04, 2025 Dr. Ruben King MD Other Provider Active S tart: March 04, 2025 Dr. Clarisse Flores MD Other Provider Active Start: March 04, 2025 Dr. Renny Mead MD Other Provider Active Start : March 04, 2025 Dr. Mesfin Wakefield MD Other Provider Active Start: March 04, 2025 Dr. Amos Rushing MD Other Provider Active Start : March 04, 2025 Dr. Ivonne Forbes MD Other Provider Active Star t: March 04, 2025 Dr. Master Elliott MD Other Provider Active Sta rt: March 04, 2025 Dr. Rachel Guzman MD Other Provider Active Sta rt: March 04, 2025 Dr. Jai Mitchell MD Other Provider Active Star t: March 04, 2025 Dr. Miguel Ambriz MD Other Provider Active St art: March 04, 2025 Dr. Evan Acosta MD Other Provider Active Star t: March 04, 2025 Dr. Jose A Anthony , Other Provider Active St art: March 04, 2025 Dr. Ewa Merida MD Other Provider Active Start: March 04, 2025 Dr. Vincenzo Hernandez MD Other Provider Active St art: March 04, 2025 Dr. Raul Jack , DO Other Provider Active Start: March 04, 2025 Dr. Gamal Calero MD Other Provider Active Star t: March 04, 2025 Dr. Alli Linares MD Other Provider Active Sta rt: March 04, 2025 [employer] Tax Relationship Specialty Start Date End Date Veronica Butt APRN-NABOR [address] [place] [id number] DOOR MAKER Pulmonary Medicine 01/20/25 [employer] Tax Relationship Specialty Start Date End Date Veronica Butt APRN-[employer] [address] [place] [id number] DOOR MAKER Pulmonary Medicine 01/20/25 [employer] Tax Relationship Specialty Start Date End Date Veronica Butt APRN-CNP [address] [place] [id number] DOOR MAKER Pulmonary Medicine 01/20/25 [employer] Tax Relationship Specialty Start Date End Date Veronica Butt APRN-CNP [address] [place] [id number] DOOR MAKER Pulmonary Medicine 01/20/25 Source Comments (unrecognize d section and content) In the event this informatio n is protected by the Federal Confidentiality of Alcohol and Drug Abuse Patient Records regulations: The Federal rules restrict any use of the information to criminally investigate or prosecute any alcohol or drug abuse patient.[facility] the event this information is protected by the Federal Confidentiality of Alcohol and Drug Abuse Patient Records regulations: The Federal rules restrict any use of the information to criminally investigate or prosecute any alcohol or drug abuse patient.[facility] the event this information is protected by the Federal Confidentiality of Alcohol and Drug Abuse Patient Records regulations: The Federal rules restrict any use of the information to criminally investigate or prosecute any alcohol or drug abuse patient.[facility] the event this information is protected by the Federal Confidentiality of Alcohol and Drug Abuse Patient Records regulations: The Federal rules restrict any use of the information to criminally investigate or prosecute any alcohol or drug abuse patient.[facility] the event this information is protected by the Federal Confidentiality of Alcohol and Drug Abuse Patient Records regulations: The Federal rules restrict any use of the information to criminally investigate or prosecute any alcohol or drug abuse patient.[facility] the event this information is protected by the Federal Confidentiality of Alcohol and Drug Abuse Patient Records regulations: The Federal rules restrict any use of the information to criminally investigate or prosecute any alcohol or drug abuse patient.[facility] the event this information is protected by the Federal Confidentiality of Alcohol and Drug Abuse Patient Records regulations: The Federal rules restrict any use of the information to criminally investigate or prosecute any alcohol or drug abuse patient.[facility] the event this information is protected by the Federal Confidentiality of Alcohol and Drug Abuse Patient Records regulations: The Federal rules restrict any use of the information to criminally investigate or prosecute any alcohol or drug abuse patient.[facility] the event this information is protected by the Federal Confidentiality of Alcohol and Drug Abuse Patient Records regulations: The Federal rules restrict any use of the information to criminally investigate or prosecute any alcohol or drug abuse patient.[facility] the event this information is protected by the Federal Confidentiality of Alcohol and Drug Abuse Patient Records regulations: The Federal rules restrict any use of the information to criminally investigate or prosecute any alcohol or drug abuse patient.[facility] the event this information is protected by the Federal Confidentiality of Alcohol and Drug Abuse Patient Records regulations: The Federal rules restrict any use of the information to criminally investigate or prosecute any alcohol or drug abuse patient.[facility] the event this information is protected by the Federal Confidentiality of Alcohol and Drug Abuse Patient Records regulations: The Federal rules restrict any use of the information to criminally investigate or prosecute any alcohol or drug abuse patient.[facility] the event this information is protected by the Federal Confidentiality of Alcohol and Drug Abuse Patient Records regulations: The Federal rules restrict any use of the information to criminally investigate or prosecute any alcohol or drug abuse patient.[facility] the event this information is protected by the Federal Confidentiality of Alcohol and Drug Abuse Patient Records regulations: The Federal rules restrict any use of the information to criminally investigate or prosecute any alcohol or drug abuse patient.[facility] the event this information is protected by the Federal Confidentiality of Alcohol and Drug Abuse Patient Records regulations: The Federal rules restrict any use of the information to criminally investigate or prosecute any alcohol or drug abuse patient.[facility] the event this information is protected by the Federal Confidentiality of Alcohol and Drug Abuse Patient Records regulations: The Federal rules restrict any use of the information to criminally investigate or prosecute any alcohol or drug abuse patient.[facility]In the event this information is protected by the Federal Confidentiality of Alcohol and Drug Abuse Patient Records regulations: The Federal rules restrict any use of the information to criminally investigate or prosecute any alcohol or drug abuse patient.[facility]In the event this information is protected by the Federal Confidentiality of Alcohol and Drug Abuse Patient Records regulations: The Federal rules restrict any use of the information to criminally investigate or prosecute any alcohol or drug abuse patient.[facility]In the event this information is protected by the Federal Confidentiality of Alcohol and Drug Abuse Patient Records regulations: The Federal rules restrict any use of the information to criminally investigate or prosecute any alcohol or drug abuse patient.[facility] the event this information is protected by the Federal Confidentiality of Alcohol and Drug Abuse Patient Records regulations: The Federal rules restrict any use of the information to criminally investigate or prosecute any alcohol or drug abuse patient.[facility] the event this information is protected by the Federal Confidentiality of Alcohol and Drug Abuse Patient Records regulations: The Federal rules restrict any use of the information to criminally investigate or prosecute any alcohol or drug abuse patient.[facility] the event this information is protected by the Federal Confidentiality of Alcohol and Drug Abuse Patient Records regulations: The Federal rules restrict any use of the information to criminally investigate or prosecute any alcohol or drug abuse patient.[facility] the event this information is protected by the Federal Confidentiality of Alcohol and Drug Abuse Patient Records regulations: The Federal rules restrict any use of the information to criminally investigate or prosecute any alcohol or drug abuse patient.[facility] the event this information is protected by the Federal Confidentiality of Alcohol and Drug Abuse Patient Records regulations: The Federal rules restrict any use of the information to criminally investigate or prosecute any alcohol or drug abuse patient.[facility]In the event this information is protected by the Federal Confidentiality of Alcohol and Drug Abuse Patient Records regulations: The Federal rules restrict any use of the information to criminally investigate or prosecute any alcohol or drug abuse patient.[facility]In the event this information is protected by the Federal Confidentiality of Alcohol and Drug Abuse Patient Records regulations: The Federal rules restrict any use of the information to criminally investigate or prosecute any alcohol or drug abuse patient.[facility]In the event this information is protected by the Federal Confidentiality of Alcohol and Drug Abuse Patient Records regulations: The Federal rules restrict any use of the information to criminally investigate or prosecute any alcohol or drug abuse patient.[facility]In the event this information is protected by the Federal Confidentiality of Alcohol and Drug Abuse Patient Records regulations: The Federal rules restrict any use of the information to criminally investigate or prosecute any alcohol or drug abuse patient.[facility]In the event this information is protected by the Federal Confidentiality of Alcohol and Drug Abuse Patient Records regulations: The Federal rules restrict any use of the information to criminally investigate or prosecute any alcohol or drug abuse patient.[facility]In the event this information is protected by the Federal Confidentiality of Alcohol and Drug Abuse Patient Records regulations: The Federal rules restrict any use of the information to criminally investigate or prosecute any alcohol or drug abuse patient.[facility]In the event this information is protected by the Federal Confidentiality of Alcohol and Drug Abuse Patient Records regulations: The Federal rules restrict any use of the information to criminally investigate or prosecute any alcohol or drug abuse patient.[facility]In the event this information is protected by the Federal Confidentiality of Alcohol and Drug Abuse Patient Records regulations: The Federal rules restrict any use of the information to criminally investigate or prosecute any alcohol or drug abuse patient.[facility]In the event this information is protected by the Federal Confidentiality of Alcohol and Drug Abuse Patient Records regulations: The Federal rules restrict any use of the information to criminally investigate or prosecute any alcohol or drug abuse patient.[facility]In the event this information is protected by the Federal Confidentiality of Alcohol and Drug Abuse Patient Records regulations: The Federal rules restrict any use of the information to criminally investigate or prosecute any alcohol or drug abuse patient.[facility]In the event this information is protected by the Federal Confidentiality of Alcohol and Drug Abuse Patient Records regulations: The Federal rules restrict any use of the information to criminally investigate or prosecute any alcohol or drug abuse patient.[facility]In the event this information is protected by the Federal Confidentiality of Alcohol and Drug Abuse Patient Records regulations: The Federal rules restrict any use of the information to criminally investigate or prosecute any alcohol or drug abuse patient.[facility]In the event this information is protected by the Federal Confidentiality of Alcohol and Drug Abuse Patient Records regulations: The Federal rules restrict any use of the information to criminally investigate or prosecute any alcohol or drug abuse patient.[facility]In the event this information is protected by the Federal Confidentiality of Alcohol and Drug Abuse Patient Records regulations: The Federal rules restrict any use of the information to criminally investigate or prosecute any alcohol or drug abuse patient.[facility]In the event this information is protected by the Federal Confidentiality of Alcohol and Drug Abuse Patient Records regulations: The Federal rules restrict any use of the information to criminally investigate or prosecute any alcohol or drug abuse patient.[facility]In the event this information is protected by the Federal Confidentiality of Alcohol and Drug Abuse Patient Records regulations: The Federal rules restrict any use of the information to criminally investigate or prosecute any alcohol or drug abuse patient.[facility] HospitalIn the event this information is protected by the Federal Confidentiality of Alcohol and Drug Abuse Patient Records regulations: The Federal rules restrict any use of the information to criminally investigate or prosecute any alcohol or drug abuse patient.[facility] HospitalIn the event this information is protected by the Federal Confidentiality of Alcohol and Drug Abuse Patient Records regulations: The Federal rules restrict any use of the information to criminally investigate or prosecute any alcohol or drug abuse patient.[facility] HospitalIn the event this information is protected by the Federal Confidentiality of Alcohol and Drug Abuse Patient Records regulations: The Federal rules restrict any use of the information to criminally investigate or prosecute any alcohol or drug abuse patient.[facility] HospitalIn the event this information is protected by the Federal Confidentiality of Alcohol and Drug Abuse Patient Records regulations: The Federal rules restrict any use of the information to criminally investigate or prosecute any alcohol or drug abuse patient.[facility] HospitalIn the event this information is protected by the Federal Confidentiality of Alcohol and Drug Abuse Patient Records regulations: The Federal rules restrict any use of the information to criminally investigate or prosecute any alcohol or drug abuse patient.[facility] HospitalIn the event this information is protected by the Federal Confidentiality of Alcohol and Drug Abuse Patient Records regulations: The Federal rules restrict any use of the information to criminally investigate or prosecute any alcohol or drug abuse patient.[facility] HospitalIn the event this information is protected by the Federal Confidentiality of Alcohol and Drug Abuse Patient Records regulations: The Federal rules restrict any use of the information to criminally investigate or prosecute any alcohol or drug abuse patient.[facility] HospitalIn the event this information is protected by the Federal Confidentiality of Alcohol and Drug Abuse Patient Records regulations: The Federal rules restrict any use of the information to criminally investigate or prosecute any alcohol or drug abuse patient.[facility] HospitalIn the event this information is protected by the Federal Confidentiality of Alcohol and Drug Abuse Patient Records regulations: The Federal rules restrict any use of the information to criminally investigate or prosecute any alcohol or drug abuse patient.[facility] HospitalIn the event this information is protected by the Federal Confidentiality of Alcohol and Drug Abuse Patient Records regulations: The Federal rules restrict any use of the information to criminally investigate or prosecute any alcohol or drug abuse patient.[facility] HospitalIn the event this information is protected by the Federal Confidentiality of Alcohol and Drug Abuse Patient Records regulations: The Federal rules restrict any use of the information to criminally investigate or prosecute any alcohol or drug abuse patient.[facility] HospitalIn the event this information is protected by the Federal Confidentiality of Alcohol and Drug Abuse Patient Records regulations: The Federal rules restrict any use of the information to criminally investigate or prosecute any alcohol or drug abuse patient.[facility] HospitalIn the event this information is protected by the Federal Confidentiality of Alcohol and Drug Abuse Patient Records regulations: The Federal rules restrict any use of the information to criminally investigate or prosecute any alcohol or drug abuse patient.[facility] HospitalIn the event this information is protected by the Federal Confidentiality of Alcohol and Drug Abuse Patient Records regulations: The Federal rules restrict any use of the information to criminally investigate or prosecute any alcohol or drug abuse patient.[facility] HospitalIn the event this information is protected by the Federal Confidentiality of Alcohol and Drug Abuse Patient Records regulations: The Federal rules restrict any use of the information to criminally investigate or prosecute any alcohol or drug abuse patient.[facility] HospitalIn the event this information is protected by the Federal Confidentiality of Alcohol and Drug Abuse Patient Records regulations: The Federal rules restrict any use of the information to criminally investigate or prosecute any alcohol or drug abuse patient.[facility] the event this information is protected by the Federal Confidentiality of Alcohol and Drug Abuse Patient Records regulations: The Federal rules restrict any use of the information to criminally investigate or prosecute any alcohol or drug abuse patient.[facility] HospitalIn the event this information is protected by the Federal Confidentiality of Alcohol and Drug Abuse Patient Records regulations: The Federal rules restrict any use of the information to criminally investigate or prosecute any alcohol or drug abuse patient.[facility] HospitalIn the event this information is protected by the Federal Confidentiality of Alcohol and Drug Abuse Patient Records regulations: The Federal rules restrict any use of the information to criminally investigate or prosecute any alcohol or drug abuse patient.[facility] HospitalIn the event this information is protected by the Federal Confidentiality of Alcohol and Drug Abuse Patient Records regulations: The Federal rules restrict any use of the information to criminally investigate or prosecute any alcohol or drug abuse patient.[facility] HospitalIn the event this information is protected by the Federal Confidentiality of Alcohol and Drug Abuse Patient Records regulations: The Federal rules restrict any use of the information to criminally investigate or prosecute any alcohol or drug abuse patient.[facility] HospitalIn the event this information is protected by the Federal Confidentiality of Alcohol and Drug Abuse Patient Records regulations: The Federal rules restrict any use of the information to criminally investigate or prosecute any alcohol or drug abuse patient.[facility] HospitalIn the event this information is protected by the Federal Confidentiality of Alcohol and Drug Abuse Patient Records regulations: The Federal rules restrict any use of the information to criminally investigate or prosecute any alcohol or drug abuse patient.[facility] HospitalIn the event this information is protected by the Federal Confidentiality of Alcohol and Drug Abuse Patient Records regulations: The Federal rules restrict any use of the information to criminally investigate or prosecute any alcohol or drug abuse patient.[facility] HospitalIn the event this information is protected by the Federal Confidentiality of Alcohol and Drug Abuse Patient Records regulations: The Federal rules restrict any use of the information to criminally investigate or prosecute any alcohol or drug abuse patient.[facility] HospitalIn the event this information is protected by the Federal Confidentiality of Alcohol and Drug Abuse Patient Records regulations: The Federal rules restrict any use of the information to criminally investigate or prosecute any alcohol or drug abuse patient.[facility] HospitalIn the event this information is protected by the Federal Confidentiality of Alcohol and Drug Abuse Patient Records regulations: The Federal rules restrict any use of the information to criminally investigate or prosecute any alcohol or drug abuse patient.[facility] HospitalIn the event this information is protected by the Federal Confidentiality of Alcohol and Drug Abuse Patient Records regulations: The Federal rules restrict any use of the information to criminally investigate or prosecute any alcohol or drug abuse patient.[facility] HospitalIn the event this information is protected by the Federal Confidentiality of Alcohol and Drug Abuse Patient Records regulations: The Federal rules restrict any use of the information to criminally investigate or prosecute any alcohol or drug abuse patient.[facility] HospitalIn the event this information is protected by the Federal Confidentiality of Alcohol and Drug Abuse Patient Records regulations: The Federal rules restrict any use of the information to criminally investigate or prosecute any alcohol or drug abuse patient.[facility] HospitalIn the event this information is protected by the Federal Confidentiality of Alcohol and Drug Abuse Patient Records regulations: The Federal rules restrict any use of the information to criminally investigate or prosecute any alcohol or drug abuse patient.[facility] HospitalIn the event this information is protected by the Federal Confidentiality of Alcohol and Drug Abuse Patient Records regulations: The Federal rules restrict any use of the information to criminally investigate or prosecute any alcohol or drug abuse patient.[facility] HospitalIn the event this information is protected by the Federal Confidentiality of Alcohol and Drug Abuse Patient Records regulations: The Federal rules restrict any use of the information to criminally investigate or prosecute any alcohol or drug abuse patient.[facility] HospitalIn the event this information is protected by the Federal Confidentiality of Alcohol and Drug Abuse Patient Records regulations: The Federal rules restrict any use of the information to criminally investigate or prosecute any alcohol or drug abuse patient.[facility] HospitalIn the event this information is protected by the Federal Confidentiality of Alcohol and Drug Abuse Patient Records regulations: The Federal rules restrict any use of the information to criminally investigate or prosecute any alcohol or drug abuse patient.[facility] Reason for Visit (unrecogniz ed section and content) Reason Comments Spirometry Specialty Diagnoses / Procedures Referred By Contac t Referred To [facility] [place] Diagnoses Dyspnea, unspecified type Procedures SPIROMETRY WITH DILATOR IF OBSTRUCTED BRNCDILAT RSPSE SPMTRY PRE&POST-BRNCDILAT ADMN Shelton Flores MD 1 [place] [address] [address] Referral ID Status Reason Start Date Expiration Date V isits Requested Visits Authorized [id number] Closed Auto-Generate d Referral 08/13/2023 09/11/2024 1 1 Reason Comments FYI-No Action Needed Reason Comments Results Specialty Diagnoses / Procedures Referred By Contac t Referred To [facility] [place] Diagnoses Chronic obstructive pulmonary disease, unspecified COPD type (HCC) Procedures LUNG DIFFUSION CAPACITY (DLCO) DIFFUSING CAPACITY Shelton Flores MD [address] [place] [address] [address] Referral ID Status Reason Start Date Expiration Date V isits Requested Visits Authorized [id number] Closed Auto-Generate d Referral 08/20/2023 09/18/2024 1 1 Specialty Diagnoses / Procedures Referred By Contac t Referred To [facility] [place] Diagnoses Chronic obstructive pulmonary disease, unspecified COPD type (HCC) Procedures LUNG VOLUMES Shelton Flores MD [address] [place] [address] [address] Referral ID Status Reason Start Date Expiration Date V isits Requested Visits Authorized [id number] Closed Auto-Generate d Referral 08/20/2023 07/18/2024 1 1 Specialty Diagnoses / Procedures Referred By Contac t Referred To [facility] Diagnoses Chronic obstructive pulmonary disease, unspecified COPD type (HCC) Procedures NITRIC OXIDE, EXHALED NITRIC OXIDE GAS DETERMINATION Shelton Flores MD [address] [place] [address] [facility] [address] [place] [address] Referral ID Status Reason Start Date Expiration Date V isits Requested Visits Authorized [id number] Closed Auto-Generate d Referral 08/20/2023 09/18/2024 1 1 Specialty Diagnoses / Procedures Referred By Contac t Referred To Contact CT IMAGING Diagnoses Wheezing Procedures CT CHEST WO IVCON DIAGNOSTIC COMPUTED TOMOGRAPHY THORAX W/O CNTRST Shelton Flores MD [address] [place] [address] [place] [address] Referral ID Status Reason Start Date Expiration Date V isits Requested Visits Authorized [id number] Closed Auto-Generate d Referral 08/20/2023 10/03/2023 1 [...] FACET JT LMBR/SAC 2ND LEVEL PROCEDURE 20 Presylvester, Bertha, PROCESS TRAINER.PROFESSOR OF MARKETING [address] [place] [address] Dhiraj Herr MD [address] [facility] [address] [place] [address] Referral ID Status Reason Start Date Expiration Date Visits Re quested Visits Authorized [id number] Closed 07/19/2023 07/18/2024 1 1 Reason Comments Follow Up Reason Comments Wheezing Reason Comments Radiology MRI Specialty Diagnoses / Procedures Referred By Contac t Referred To Contact MR IMAGING Diagnoses Spinal 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 Procedures MRI LUMBAR SPINE WO IVCON MRI SPINAL CANAL LUMBAR W/O CONTRAST MATERIAL 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, Bertha, PROCESS TRAINER.PROFESSOR OF MARKETING [address] [place] [address] [place] [address] Referral ID Status Reason Start Date Expiration Date V isits Requested Visits Authorized [id number] Closed Auto-Generate d Referral 10/29/2023 11/27/2024 1 [...] FACET JT LMBR/SAC 2ND LEVEL PROCEDURE 20 Prebi, Bertha, PROCESS TRAINER.PROFESSOR OF MARKETING [address] [place] [address] Dhiraj Herr MD [address] [facility] [address] [place] [address] Referral ID Status Reason Start Date Expiration Date Visits Re quested Visits Authorized [id number] Closed 12/16/2023 07/18/2024 1 1 Reason Comments Procedure Follow Up MBB Reason Comments Follow Up MBB Specialty Diagnoses / Procedures Referred By Contac t Referred To Contact CT IMAGING Diagnoses Lung nodules Procedures CT CHEST WO IVCON DIAGNOSTIC COMPUTED TOMOGRAPHY THORAX W/O CNTRST Shelton Flores MD [address] [place] [address] [place] [address] Referral ID Status Reason Start Date Expiration Date V isits Requested Visits Authorized [id number] Closed Auto-Generate d Referral 11/11/2023 12/10/2024 1 1 Reason Onset Date Comments Refill Request 01/06/2024 Reason Onset Date Comments Refill Request 01/11/2024 Reason Comments Illness Witmer R N covering urgent pulm sypmtom calls [...] SBST INTRLMNR LMBR/SAC W/IMG GDN PROCEDURE Everton Sanchez MD [address] [address] Everton Sanchez MD [address] [address] Referral ID Status Reason Start Date Expiration Date Visits Requested Visits Authorized [id number] Appeal Pending Clearance Not Met - Admin/Chair [...] FACET JT LMBR/SAC 2ND LEVEL PROCEDURE 20 Prebish, Bertha, PROCESS TRAINER.PROFESSOR OF MARKETING [address] [place] [address] Everton Sanchez MD [address] [address] Referral ID Status Reason Start Date Expiration Date Visits Re quested Visits Authorized [id number] Closed 04/26/2024 10/23/2024 1 1 Reason Comments Follow Up post procedure Reason Comments Erroneous encounter-disregard Reason Comments Injections MBB Back Pain LOWER BILATERAL Specialty Diagnoses / Procedures Referred By Contac t Referred To Contact PAIN MANAGEMENT Diagnoses Spondylosis without myelopathy or radiculopathy, lumbar region Procedures DSTR NROLYTC AGNT PARVERTEB FCT SNGL LMBR/SACRAL DSTR NROLYTC AGNT PARVERTEB FCT ADDL LMBR/SACRAL Prebish, Bertha, PROCESS TRAINER.PROFESSOR OF MARKETING [address] [place] [address] [place] [address] [facility] [address] [place] [place] [address] Referral ID Status Reason Start Date Expiration Date Visits Re quested Visits Authorized [id number] Closed 05/08/2024 11/04/2024 1 1 Reason Comments Appointment Cancelled Reason Comments Established Patient Reason Comments Radiology CT Specialty Diagnoses / Procedures Referred By Contac t Referred To Contact Radiology / RADIO CT SCAN [facility] Diagnoses Other nonspecific abnormal finding of lung field CT chest w/o in scanned docs Procedures DIAGNOSTIC COMPUTED TOMOGRAPHY THORAX W/O CNTRST CT WO CH 400 Pilar Lanza DO [address] [place] [address] [facility] [address] [place] [address] Referral ID Status Reason Start Date Expiration Date Visits Re quested Visits Authorized [id number] Closed 07/19/2023 07/18/2024 1 1 Reason Comments [...] THERAPY EVALUATION HIGH COMPLEX 45 MINS Lois Hoang MD [address] [facility] [place] [address] Phone: tel: fax: [facility] [address] [place] [address] Referral ID Status Reason Start Date Expiration Date V isits Requested Visits Authorized [id number] Closed Auto-Generate d Referral 07/19/2024 07/18/2025 1 [...] Diagnoses Unspecified visual disturbance Procedures NA [facility] [address] [place], [place] [address] [address] Phone: tel: [facility] [address] [place], [place] [address] [address] Phone: tel: Referral ID Status Reason Start Date Expiration Date Visits Re quested Visits Authorized [id number] 3 3 Reason Onset Date Comments APPOINTMENT SCHEDULING 12/25/2024 Reason Comments New patient, to establish relationship Specialty Diagnoses / Procedures Referred By Contac t Referred To Contact Pulmonary Medicine Diagnoses COPD exacerbation (HCC) Aura Wagner MD [address] [place] [address] Phone: tel: fax: [facility] [address] [place] [address] Phone: tel: Referral ID Status Reason Start Date Expiration Date V isits Requested Visits Authorized [id number] Pending Review 10/26/2024 10/26/2025 3 3 Reason Onset Date Comments PFT Appt 02/01/2025 Reason Onset Date Comments Care Coordination 03/06/2025 Reason Onset Date Comments Update 03/08/2025 Reason Onset Date Comments Provider Request 03/08/2025 Reason Onset Date Comments Prescription Clarification 03/08/2025 Inactive Administered Medications - up to 3 [...] Provider: Bertram Patel RT - Reason: 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) 0000 (Automatically Held - Provider: Bertram Patel RT)0400 (Automatically Held - Provider: Bertram Patel RT)0800 (Automatically Held - Provider: Bertram Patel RT)1200 (Automatically Held - Provider: Bertram aPtel RT)1600 (Automatically Held - Provider: Bertram Patel RT)2000 (Automatically Held - Provider: Bertram Patel RT) 0000 (Automatically Held - Provider: Bertram Patel RT)0400 (Automatically Held - Provider: Bertram Patel RT)0800 (Automatically Held - Provider: Bertram Patel RT)1200 (Automatically Held - Provider: Bertram Patel RT)1600 (Automatically Held - Provider: Bertram Patel RT)2000 (Automatically Held - Provider: Bertram Patel RT) atorvastatin (LIPITOR) tablet 80 mg, Oral, [...] 1315 (IV New Bag - Provider: Stephie Phillips RN) Cerovite Jr chew tab 1 Tablet, Oral, DAILY, First dose on Wed10/24/24 at 2100, Until Discontinued 2100 (Given - Provider: Dimitris Mcginnis RN) 0917 (Given - Provider: Juan A Olsen RN) 0835 (Given - Provider: Stephie Phillips RN) clopidogrel (PLAVIX) 75 MG tablet 75 mg, [...] modification) on Wed10/25/24 at 2100, Until Discontinued 2125 (Given - Provider: Lalit Peters RN) 0834 (Given - Provider: Stephie Phillips RN)2099 (Due) folic acid 1 MG tablet 1 mg, Oral, DAILY, First dose on Wed10/26/24 at 0900, Until Discontinued 833 (Given - Provider: Stephie Phillips RN) folic acid 5 MG/ML injection (CANCELED) 1 mg, Intravenous Push, DAILY, First dose on Wed10/24/24 at 2100, Until Discontinued 53 (Given - Provider: Lalit Peters, NEENA)0918 (Given - Provider: Juan A Olsen, NEENA) furosemide (LASIX) 10 mg/mL injection (COMPLETED) 20 mg, Intravenous Push, ONCE, 1 dose, On Wed10/24/24 at 2130 2101 (Given - Provider: Dimitris Mcginnis, RN) guaiFENesin (MUCINEX) 600 MG 12 hour tablet 600 mg, Oral, 2 TIMES DAILY, First dose on Wed10/24/24 at 2030, Until Discontinued 2100 (Given - Provider: Dimitris Mcginnis, RN) 0917 (Given - Provider: Juan A Olsen, RN)2125 (Given - Provider: Lalit Peters RN) 08 (Given - Provider: Stephie Phillips RN)2099 (Due) ipratropium (ATROVENT) 0.02 % nebulizer solution 0.5 mg, Nebulization, EVERY 4 HOURS RT, First dose on Wed10/25/24 at 0000, Until Discontinued 2050 (MAR Hold - Provider: Bertram Patel, RT - Reason: RT Unavailable) 0000 (Automatically Held - Provider: Bertram Patel, RT)0400 (Automatically Held - Provider: Bertram Patel, RT)0800 (Automatically Held - Provider: Bertram Patel, RT)1200 (Automatically Held - Provider: Bertram Patel, RT)1600 (Automatically Held - Provider: Bertram Patel, RT)2000 (Automatically Held - Provider: Bertram Patel, RT) 0000 (Automatically Held - Provider: Bertram Patel, RT)0400 (Automatically Held - Provider: Bertram Patel, RT)0800 (Automatically Held - Provider: Bertram Patel, RT)1200 (Automatically Held - Provider: Bertram Patel, RT)1600 (Automatically Held - Provider: Bertram Patel, RT)2000 (Automatically Held - Provider: Bertram Patel, RT) ipratropium-albuterol (DUO-NEB) 0.5-2.5 (3) MG/3ML nebulizer solution 3 mL, Nebulization, EVERY 4 HOURS RT, First dose on Wed10/25/24 at 0000, Until Discontinued 2033 (Given - Provider: Bertram Patel, RT) 0001 (Given - Provider: Kesha Solis RT)0402 (Given - Provider: Christen Allen RT)0912 (Given - Provider: Misha Grullon, RT)1208 (Given - Provider: Misha Grullon, RT)1551 (Given - Provider: Misha Grullon, RT)2013 (Given - Provider: Sarah Cervantes, RT)2342 (Given - Provider: Sarah Cervantes RT) 0359 (Given - Provider: Sarah Cervantes RT)0844 (Given - Provider: Catherine Grady, RT)1159 (Given - Provider: Catherine Grady, RT)1600 (Due)1999 (Due) lisinopril (ZESTRIL) tablet (CANCELED) 2.5 mg, Oral, DAILY, First dose on Wed10/24/24 at 2100, Until Discontinued 2100 (Given - Provider: Dimitris Mcginnis RN) lisinopril (ZESTRIL) tablet (CANCELED) 5 mg, Oral, DAILY, First dose (after last modification) on Wed10/25/24 at 0900, Until Discontinued 916 (Given - Provider: Juan A Olsen RN) lisinopril (ZESTRIL) tablet 10 mg, Oral, DAILY, First dose (after last modification) on Wed10/26/24 at 0900, Until Discontinued 834 (Given - Provider: Stephie Phillips RN) nicotine (NICODERM CQ) 21 mg/24HR patch 21 mg, Transdermal, DAILY, First dose on Wed10/24/24 at 2030, Until Discontinued 2030 (Hold/Not Given - Provider: Dimitris Mcginnis RN - Reason: Clinical contraindications - Comment: Pt had one placed at [facility]) 914 (Patch Applied - Provider: Juan A Olsen RN) 0834 (Patch Removal - Provider: Stephie Phillips RN)0836 (Patch Applied - Provider: Stephie Phillips RN) [...] 2100, Last dose on Wed10/26/24 at 0900 210 (Given - Provider: Dimitris Mcginnis RN) 0917 [...] Until Discontinued, Mild Pain (pain score 1,2,3) 2100 (Given - Provider: Dimitris Mcginnis RN) albuterol [...] BE BASED ON THE PRIMARY CLINICAL RECORDS. [employer] provides no warranty or guarantee of the accuracy or completeness of information in this document.
[2025-03-10 01:52] LABS: Partial Thromboplast Time 30.9 Seconds (24.1-36.2)
--- NOTE | 2025-03-10 02:12 | EDS_ITS ---
HPI History of Present Illness Chief Complaint: Shortness of Breath Informant: patient and spouse/S.O. Narrative Narrative: Patient is a 64-year-old male with history of hypertension, hyperlipidemia, GERD, alcohol dependency and recent ICU admission for acute metabolic encephalopathy, sepsis and ultimately aspiration pneumonia. He was discharged on 03/05/2020 6:05 day hospitalization. He was thought to have sepsis secondary aspiration pneumonia. He started in the ICU but after transfer to PCU he spiked a fever and became agitated. He was transferred back to the ICU and required a Precedex drip for agitation. He was on a phenobarbital taper for concern of alcohol withdrawal in the hospital. Patient was discharged with Lasix, potassium and prednisone. Patient tells me that since being home he has had some swelling of his legs. He has been taking his prescribed medications. He does not wear Oxygen normally. He states he felt cold when he was going to bed last night but otherwise is feeling well. He then woke up feeling very short of breath. He denies a history of COPD or asthma however he has prescriptions for montelukast, DuoNebs and an oral Ellipta in his MAR. When asked if he has chest pain he states he does on the left lower chest and points to his ribs. He denies any injury however his tells me that he had a fall 2 days ago when he slipped to the right into the wall. He states he hit his head pretty hard. He is not on a blood thinner. He also has bruising to his left lower abdomen from this fall. No report of any vomiting. Was not sent home on any steroids. No other complaints or concerns reported at this time. Per respiratory therapy who evaluated the patient immediately upon arrival to the ER, he had very coarse breath sounds was given a DuoNeb with some improvement of his breathing. Was 92% on 2 L nasal cannula upon arrival. [facility] Medical History (Updated 03/10/25 @ 05:[address] Adriana Santoro DO) Obesity History of CVA (cerebrovascular accident) Chronic anemia CKD (chronic kidney disease), stage II (HFpEF) heart failure with preserved ejection fraction COPD (chronic obstructive pulmonary disease) Tobacco abuse Alcohol abuse Hyperlipemia Hypertension GERD (gastroesophageal reflux disease) Home Medications ?Medication ?Instructions ?Recorded ?Last Taken ?Type atorvastatin 80 mg tablet 80 mg PO DAILY 03/22/22/11/07 History clopidogrel 75 mg tablet 75 mg PO DAILY 03/22/220 11/07 History lisinopril 2.5 mg tablet 2.5 mg PO DAILY 03/22/2211/07 History esomeprazole magnesium 40 mg 40 mg PO DAILY 02/26/25 U nknown History capsule,delayed release folic acid 1 mg tablet 1 mg PO DAILY 02/26/25 Unkno wn History ipratropium 0.5 mg-albuterol 3 mg 3 ml continuous nebu lization Q4H 02/26/25 Unknown History (2.5 mg base)/3 mL nebulization PRN PRN wheezing soln montelukast 10 mg tablet 10 mg PO DAILY 02/26/25 Unkn own History thiamine HCl (vitamin B1) 100 mg 100 mg PO DAILY 02/26 Unknown History tablet umeclidinium 62.5 mcg-vilanterol 1 ea inhalation DAILY 02/26/25 Unknown History 25 mcg/actuation powdr for inhalation (Anoro Ellipta) furosemide 40 mg tablet (Lasix) 40 mg PO DAILY #7 tabs 03/05/25 Unknown Rx potassium chloride 10 mEq 20 meq (2 x 10 mEq) PO DAILY #14 03/05/25 Unknown Rx tablet,extended release (Klor-Con) tabs prednisone 20 mg tablet 20 mg PO BIDCM #10 tabs 02/16 03/12 Unknown Rx cyclobenzaprine 10 mg tablet 10 mg PO TID PRN 03/10/25 Unknown History Allergy/AdvReac Type Severity Reaction Status Date / Time Penicillins (PCN) Allergy Unknown - Verified 03/10/25 01:11 WAS A BABY Family History (Updated 03/10/25 @ 04:[address] Dayan Wilks MD) Father Leukemia Mother No problems noted. Surgical History (Updated 03/10/25 @ 04:[address] Dayan Wilks MD) H/O laminectomy Status post bilateral total hip replacement Social History (Updated 03/10/25 @ 04:[address] Dayan Wilks MD) household members: spouse Smoking Status: Current every day smoker tobacco type: cigarettes Smoking packs per day: 1 Smoking cigarettes per day: 20.0 alcohol intake: former details: Recently sober since prior admission, 15-30 beers daily prior. substance use type: does not use ROS ROS ED Constitutional Constitutional ED: Reports chills; Denies fever(s) ENT ENT ED: Denies sore throat Cardiovascular Cardiovascular: Reports chest pain Respiratory/Chest Respiratory/Chest: Reports cough and dyspnea Gastrointestinal Gastrointestinal: Denies abdominal pain or vomiting Musculoskeletal Musculoskeletal: Denies back pain Neurologic Neurologic: Reports weakness; Denies paresthesias Psychiatric Psychiatric: Reports anxiety Hematologic/Lymphatic Hematologic/Lymphatic: Denies easy bleeding or easy bruising EXAM Physical Exam Const Vital Signs: 03/10/25 01:11 03/10/25 01:14 03/10/25 01:14 Temperature 100.5 F H 100.5 F H Temperature Source Oral Oral Pulse Rate 92 92 Respiratory Rate 37 H 30 H Respiratory Effort Short of Breath Accessory Muscle Use Nasal Flaring Respiratory Depth Shallow Respiratory Pattern Tachypnea Blood Pressure 156/77 H 156/77 H Blood Pressure Mean 103 103 Pulse Ox 92 93 Oxygen Delivery Method Nasal Cannula Nasal Cannula Nasal Cannula Oxygen Flow Rate (L/min) 2 2 2 Fraction of Inspired Oxygen (FIO2) 03/10/25 01:27 03/10/25 01:29 03/10/25 01:30 Temperature Temperature Source Pulse Rate 89 94 Respiratory Rate 30 H 40 H Respiratory Effort Respiratory Depth Respiratory Pattern Tachypnea Blood Pressure 138/69 H Blood Pressure Mean 92 Pulse Ox 96 Oxygen Delivery Method Bi-pap Bi-pap Oxygen Flow Rate (L/min) Fraction of Inspired Oxygen (FIO2) 03/10/25 01:32 03/10/25 01:39 03/10/25 01:40 Temperature Temperature Source Pulse Rate 90 Respiratory Rate 42 H 32 H Respiratory Effort Respiratory Depth Respiratory Pattern Tachypnea Blood Pressure Blood Pressure Mean Pulse Ox 97 94 95 Oxygen Delivery Method Nasal Cannula Nasal Cannula Oxygen Flow Rate (L/min) 2 2 Fraction of Inspired Oxygen (FIO2) 30 03/10/25 02:00 03/10/25 03:00 03/10/25 04:00 Temperature 99.3 F H 99.3 F H 99.1 F Temperature Source Oral Oral Oral Pulse Rate 64 81 76 Respiratory Rate 32 H 32 H 30 H Respiratory Effort Respiratory Depth Respiratory Pattern Blood Pressure 126/64 H 120/48 L 135/67 H Blood Pressure Mean 84 72 89 Pulse Ox 93 92 95 Oxygen Delivery Method Nasal Cannula Nasal Cannula Nasal Cannula Oxygen Flow Rate (L/min) 3 3 3 Fraction of Inspired Oxygen (FIO2) 03/10/25 04:00 Temperature 99.1 F Temperature Source Pulse Rate 75 Respiratory Rate 30 H Respiratory Effort Respiratory Depth Respiratory Pattern Blood Pressure 135/67 H Blood Pressure Mean 89 Pulse Ox 95 Oxygen Delivery Method Oxygen Flow Rate (L/min) Fraction of Inspired Oxygen (FIO2) Positive well nourished, well developed and obese Constitutional Narrative: Patient appears to be in acute respiratory distress General Appearance ED: well developed; Negative for pallor Nutritional Appearance: obese HEENT Reports moist mucous membranes atraumatic Eyes PERRL and EOMs intact bilaterally Neck supple and no JVD Chest Wall Chest Narrative: No chest wall crepitus appreciated Resp Resp Narrative: Mildly diminished breath sounds at the bases. Tachypneic. Coarse breath sounds throughout Auscultation: Negative for rales, rhonchi or wheezes Cardio regular rate, regular rhythm and no murmurs GI non-tender GI Narrative: Protuberant abdomen Auscultation: normoactive bowel sounds Extremity Extremity Narrative: 2+ pretibial pitting edema present General Extremety ED: Negative for tenderness Neuro Sensorium / Orientation: alert, oriented to person, oriented to place and confused Motor Exam: general weakness Psych Mood & Affect: anxious Thought Process: normal thought process Skin Skin Narrative: No diaphoresis, ecchymosis no hematoma to the left lower abdominal wall General Skin Exam: Negative for jaundice or pallor MDM MDM MDM Narrative Medical decision making narrative: Patient evaluated for sudden onset shortness of breath in the setting of recent hospitalization for sepsis, aspiration pneumonia and alcohol withdrawal. Differential includes COPD/asthma exacerbation, pulmonary emboli, pleural effusion, pneumonia, pneumothorax, viral illness, LAKSHMI and metabolic encephalopathy. Sepsis workup initiated patient is febrile upon arrival. Given DuoNeb with slight improvement. Is placed on BiPAP for work of breathing and concern for impending respiratory failure. ABG actually is more consistent with hyperventilation but does show hypoxia. Patient does not tolerate the BiPAP and removes it himself. At this time he is maintaining his airway and does not require further invasive respiratory treatment. He has a leukocytosis as well as a left shift which is worsening. He has some mild anemia which is stable. Low suspicion for symptomatic anemia as a cause of his symptoms. His D-dimer significantly elevated 3.62 and CTAs added on. CMP shows an elevated anion gap at 16 with normal glucose otherwise largely normal. He has a mild transaminitis with an AST of 48 and ALT of 55. This is nonspecific. BNP normal at 521 to low suspicion for acute heart failure. Patient is fluid overloaded and CHF exacerbation is on the differential is not given IV fluids initially. Urinalysis not consistent with infection. Alcohol level negative. He is already been through alcohol detox and did not start drinking once home so low suspicion for recurrent alcohol withdrawal/DTs. Chest x-ray viewed by myself as well as radiology does show some worsening airspace disease of the lower lobes. CT of the brain is obtained as reports that he did have a fall 2 days ago and has had pretty hard. This is negative for any acute intracranial process/intracranial hemorrhage. CTA of the chest reviewed by myself does show bilateral lower lobe airspace disease consistent with pneumonia and I suspect there is a left sided pulmonary emboli. Case is discussed with hospitalist, he started on vancomycin and cefepime in the emergency room. I will be admitted to the ICU given his recent respiratory failure and work of breathing upon arrival. After the patient was admitted upstairs I did speak with radiology who confirmed that he does have newly developed left pulmonary emboli as well as progression of consolidative changes, radiologist more suspicious for progression of pneumonia versus infarct. This is communicated with hospitalist. Hospitalist started patient on heparin drip Lab Data Attestation: I reviewed the patient's lab results. Labs: Laboratory Results - last 24 hr 03/10/25 03/10/25 03/10/25 01:20 01:37 02:44 WBC 16.0 H RBC 4.08 L Hgb 12.0 L Hct 35.4 L MCV 86.8 MCH 29.4 MCHC 33.9 RDW Std Deviation 45.9 H RDW Coeff of Carlos 14.5 Plt Count 466 H MPV 9.8 Immature Gran % (Auto) 1.500 H Neut % (Auto) 69.7 Lymph % (Auto) 16.7 L [place] % (Auto) 11.1 H Eos % (Auto) 0.6 Baso % (Auto) 0.4 Absolute Neuts (auto) 11.2 H Absolute Lymphs (auto) 2.68 Nucleated RBC % 0 Differential Comment SCANNED PT 17.0 H INR 1.4 APTT 30.9 D-Dimer Quant (PE/DVT) 3.62 H* Sodium 134 Potassium 3.6 Chloride 94 L Carbon Dioxide 24.1 Anion Gap 16 H BUN 12 Creatinine 1.01 Estim Creat Clear Calc 91.69 Est GFR (MDRD) Non-Af 83 BUN/Creatinine Ratio 12.2 Glucose 100 H Lactic Acid 1.9 Calcium 8.2 Phosphorus 2.4 L Magnesium 1.8 Total Bilirubin 0.44 AST 48 H ALT 55 H Alkaline Phosphatase 128 NT pro BNP II 521 Total Protein 7.2 Albumin 3.4 Globulin 3.8 Albumin/Globulin Ratio 0.9 Urine Color Yellow Urine Clarity Clear Urine pH 6.0 Ur Specific [place] 1.015 Urine Protein 30 H Urine Glucose (UA) Normal Urine Ketones Negative Urine Occult Blood 10 H Urine Nitrite Negative Urine Bilirubin 1 H Urine Urobilinogen 4 H Ur Leukocyte Esterase 25 H Urine RBC 0 SEEN Urine WBC 0-5 SEEN Ur Squamous Epith Cells 0 SEEN Urine Bacteria 0 SEEN Urine Mucus 0 SEEN Ethyl Alcohol < 10.1 ABG Data ABG results: ABG 03/10/25 01:38 Specimen Type ART Sample Site R Radial pH 7.53 H Bicarbonate Actual 27.5 H Total CO2 29 Base Excess 5 H O2 Saturation 95 O2 % 30.0 ABG pCO2 32.8 L ABG pO2 66 L Pardeep Test Positive Respiration Rate 12 O2 Delivery Device BiPAP Vent Mode Not entered POC PEEP 8 Peak Inspir Pressure 14 Radiography Diagnostic Testing: Clinical Impression(s) from Imaging Studies Brain CT 03/10/25 01:36 IMPRESSION: No acute cerebrovascular abnormalities. If clinical symptoms persist, further evaluation with MRI may be considered as clinically warranted. No intra or extra-axial acute hemorrhage. Bilateral cerebral microvascular ischemic changes with brain involutional changes. Stable. [facility]-Ray 03/10/25 01:50 IMPRESSION: Minimal bilateral pleural effusions. Passive atelectatic airspace disease in the lower lobes. Enlarged cardiac silhouette. Reading [facility] Chest CTA 03/10/25 02:46 IMPRESSION: Newly developed left pulmonary arterial thromboembolism. Poorly opacified some of the right lower lung lobe pulmonary segmental arteries and subsegmental arteries that could represent flow related artifact versus embolism. Advise follow up. Cardiomegaly. Regression of the extent of the right lower lung lobe consolidative changes. Newly developed left lower lung lobe consolidative and atelectatic changes, possibly infarcts versus pneumonia. Stable mild right and newly developed left pleural effusion. Reading [facility] Rhythm Strip Rhythm Strip: Sinus Rhythm Rate: 80 Ectopy: None EKG Initial EKG: Attestation: I personally reviewed and interpreted this EKG as follows: Interpretation: Sinus Rhythm Comments: Normal sinus rhythm at a rate of 89 bpm Normal axis Right bundle branch block T wave inversions in V1 through V4 which are unchanged compared to prior EKG Management Discussion w/another healthcare provider: Hospitalist and Radiologist Critical Care Time Critical Care Time: Yes Critical care time (excluding procedures): 30-74 minutes, Discussing w/Patient &/or Family/Tipping Machine Operator Automatic, Discussing w/Consultants, Arranging Admission or Transfer and Performing Direct Patient Care at Bedside (Frequent reevaluation respiratory status) Discharge Plan Dx/Rx/DC Orders Clinical Impression: Acute hypoxic respiratory failure, Fever, Altered mental status, Acute metabolic encephalopathy, Sepsis, Bilateral pneumonia, Pulmonary embolism, Closed head injury Disposition Disposition: Acute Care Hospital [facility] Discharge Date/Time: 03/10/25 04:32
[2025-03-10 02:29] LABS: Alcohol, Blood (Medical)-Serum < 10.1 mg/dL (<=10.0)
[2025-03-10 02:29] LABS: Differential Comment SCANNED; Pro- Brain NATRIURETIC PEPTIDE 521 pg/mL (<=900)
[2025-03-10 02:31] LABS: AST(SGOT) 48 U/L (<=37); Alanine Aminotransfer ALT/SGPT 55 U/L (<=46); Albumin, Serum 3.4 g/dL (3.4-4.8); Alkaline Phosphatase 128 U/L (40-129); Anion Gap 16 (5-15); BUN 12 mg/dL (4-19); BUN/Creat Ratio 12.2 RATIO (10-20); Calcium,Total 8.2 mg/dL (7.6-11.0); Carbon Dioxide 24.1 mmol/L (21.0-32.0); Chloride 94 mmol/L (98-108); Estimated Creatinine Clearance 91.69 ml/min (50-250); Globulin 3.8 g/dL (2.2-4.2); Glucose 100 mg/dL (70-99); Potassium 3.6 mmol/L (3.3-5.1)
[2025-03-10 02:34] LABS: D-Dimer Quantitative (DVT/PE) 3.62 FEU/ug/m (0.27-0.49)
--- NOTE | 2025-03-10 02:46 | CT_ITS ---
PROCEDURE: CTA CHEST W/WO CONTRAST 03/10/2025 REASON FOR EXAM: SOB, FEVER, ELEVATED DIMER TECHNIQUE: CTA CHEST W/WO CONTRAST Multiplanar Sagittal and Coronal images were obtained. CONTRAST:Isovue 370 VOLUME: 100 mL One or more dose reduction techniques were used (e.g., Automated exposure control, adjustment of the mA and/or kV according to patient size, use of iterative reconstruction technique). RADIATION DOSE SUMMARY: CTDlvol: 14.25 mGy DLP: 7.12 mGycm COMPARISON: 02-28-2025 # of known CTs in the past 12 months: # of known Cardiac Nuclear Medicine Studies in the past 12 months: FINDINGS: Suboptimal examination quality due to improper bolus acquisition timing and respiratory motion artifact. Branching hypodense emboli within the left main pulmonary artery bifurcation as well as its lobar segmental arteries and subsegmental arteries. Poorly opacified some of the right lower lung lobe pulmonary segmental arteries and subsegmental arteries that could represent flow related artifact versus embolism No evidence of any filling defect in the main pulmonary trunk. Patent thoracic aorta. No intraluminal hypodense thrombi, dissecting intimal flaps or significant aneurysmal dilatation. Cardiomegaly. Regression of the extent of the right lower lung lobe consolidative changes. Newly developed left lower lung lobe consolidative and atelectatic changes, possibly infarcts versus pneumonia. Stable mild right and newly developed left pleural effusion. No pericardial sac collections. Prominent hilar and mediastinal lymph nodes are noted. Scanned osseous structures show no osseous destruction. Thoracic spondylosis. CT/CTA Chest W/WO Contrast IMPRESSION: Newly developed left pulmonary arterial thromboembolism. Poorly opacified some of the right lower lung lobe pulmonary segmental arteries and subsegmental arteries that could represent flow related artifact versus embolism. Advise follow up. Cardiomegaly. Regression of the extent of the right lower lung lobe consolidative changes. Newly developed left lower lung lobe consolidative and atelectatic changes, pos sibly infarcts versus pneumonia. Stable mild right and newly developed left pleural effusion. Reading Location[facility] [id number]
[2025-03-10 02:50] LABS: Mucous, Urine 0 SEEN /hpf (<or=2+); Red Blood Cells-Urine 0 SEEN /hpf (0-5); Squamous Epithelial Cells - UA 0 SEEN /hpf (0-5)
[2025-03-10 02:53] LABS: Color, Urine Yellow (Yellow); Glucose, Dipstick Normal (Normal); Ketone-Dipstick Negative (Negative); Leukocyte Esterase-Dipstick 25 /ul (Negative); Nitrite-Dipstick Negative (Negative); Occult Blood-Urine 10 /ul (Negative); Protein-Dipstick 30 mg/dl (Negative); Specific Gravity, Urine 1.015 (1.002-1.030)
[2025-03-10 03:39] LABS: Urine Bilirubin Dipstick 1 mg/dL (Negative)
--- NOTE | 2025-03-10 03:41 | PCM.HP.STD ---
HPI - General General Date of Admission: 03/10/25 Date of Service: 03/10/25 Chief Complaint: Dyspnea, chills, confusion. HPI Narrative The patient is a 64 y/o M w/ PMHx: CKD stage II per GFR trending, Chronic normocytic anemia, Hx CVA, Asthma/COPD, GERD, HTN, HLD, Tobacco use, EtOH abuse, Obesity, recent prolonged admission 02/27/2025-03/05/2025 admitted and treated for sepsis secondary to aspiration pneumonia with associated acute respiratory failure and metabolic encephalopathy complicated by alcohol withdrawal with delirium tremens as well as mild HFpEF exacerbation and COPD Exacerbation discharged on pulse dose prednisone therapy, new prescription of Lasix and potassium supplementation for now re-presents to the [facility] ED on 03/10/25 with sudden onset dyspnea awaking him from sleep with chills potentially the evening prior in addition to mild swelling of his legs in addition to left-sided lower chest discomfort following a fall 2 days prior reporting that he even hit his head at the time prompting ED evaluation. In the ED patient transiently attempted to be placed on BiPAP however eventually pulled it off and declined further usage attempts. Workup in the ED included T1 100.5, heart rate 92, BP 156/77, respiratory rate 37, 92% on 2 L nasal cannula eventually transition to BiPAP eventually refusing to wear BiPAP further with most recent repeat vitals T99.3, heart rate 64, BP 126/64, respiratory rate 32, 93% on 2 L nasal cannula, CBC with WBC 16, hemoglobin 12, platelet 466 with left shift, coags with PT 17, INR 1.4, PTT 30.9, D-dimer 3.62, ABG with pH 7.53, bicarb 27.5, O2 saturation 95%, pCO2 32.6, PO266 on BiPAP, lactic acid 1.9, CMP with chloride 94, anion gap 16, BUN/Cryan 12/1.01, GFR 83, glucose 100, AST/LT 48/55, NT proBNP II 521, ethyl alcohol less than 10.1, CT of the brain with no acute intracranial findings with bilateral cerebral microvascular ischemic changes with brain involutional changes stable, CTPA pending upon evaluation, blood culture x 2 pending per ED, UA not marked appearing, urine culture pending per ED, rapid SARS COVID/influenza/RSV PCR negative. In the ED Schreiber catheter placed. In the ED patient administered Tylenol 650 mg p.o. x 1, vanc dose x 1, cefepime 2 gm IV x1 and DuoNeb therapy x 1. [facility] Medical History Obesity History of CVA (cerebrovascular accident) Chronic anemia CKD (chronic kidney disease), stage II (HFpEF) heart failure with preserved ejection fraction COPD (chronic obstructive pulmonary disease) Tobacco abuse Alcohol abuse Hyperlipemia Hypertension GERD (gastroesophageal reflux disease) Home Medications ?Medication ?Instructions ?Recorded ?Last Taken ?Type atorvastatin 80 mg tablet 80 mg PO DAILY 03/22/22 03/22/22 History clopidogrel 75 mg tablet 75 mg PO DAILY 03/22/22 03/22/22 History lisinopril 2.5 mg tablet 2.5 mg PO DAILY 03/22/22 03/22/22 History esomeprazole magnesium 40 mg 40 mg PO DAILY 02/26/25 Unknown History capsule,delayed release folic acid 1 mg tablet 1 mg PO DAILY 02/26/25 Unknown History ipratropium 0.5 mg-albuterol 3 mg 3 ml continuous nebulization Q4H 02/26/25 Unknown History (2.5 mg base)/3 mL nebulization PRN PRN wheezing soln montelukast 10 mg tablet 10 mg PO DAILY 02/26/25 Unknown History thiamine HCl (vitamin B1) 100 mg 100 mg PO DAILY 02/26/25 Unknown History tablet umeclidinium 62.5 mcg-vilanterol 1 ea inhalation DAILY 02/26/25 Unknown History 25 mcg/actuation powdr for inhalation (Anoro Ellipta) furosemide 40 mg tablet (Lasix) 40 mg PO DAILY #7 tabs 03/05/25 Unknown Rx potassium chloride 10 mEq 20 meq (2 x 10 mEq) PO DAILY #14 03/05/25 Unknown Rx tablet,extended release (Klor-Con) tabs prednisone 20 mg tablet 20 mg PO BIDCM #10 tabs 03/05/25 Unknown Rx cyclobenzaprine 10 mg tablet 10 mg PO TID PRN 03/10/25 Unknown History Allergy/AdvReac Type Severity Reaction Status Date / Time Penicillins (PCN) Allergy Unknown - Verified 03/10/25 01:11 WAS A BABY Family History (Updated 03/10/25 @ 04:[address] Dayan Wilks MD) Father Leukemia Mother No problems noted. Surgical History (Updated 03/10/25 @ 04:[address] Dayan Wilks MD) H/O laminectomy Status post bilateral total hip replacement Social History (Updated 03/10/25 @ 04:[address] Dayan Wilks MD) household members: spouse Smoking Status: Current every day smoker tobacco type: cigarettes Smoking packs per day: 1 Smoking cigarettes per day: 20.0 alcohol intake: former details: Recently sober since prior admission, 15-30 beers daily prior. substance use type: does not use ROS ROS Narrative Admission Review of Systems: CONSTITUTIONAL: No weight loss, fever, + chills, weakness or fatigue. HEENT: Eyes: No visual loss, blurred vision, double vision or yellow sclerae. Ears, Nose, Throat: No hearing loss, sneezing, congestion, runny nose or sore throat. SKIN: No rash or itching, lesions, wounds except + occasional stage ecchymoses, abrasion. CARDIOVASCULAR: + Pleuritic chest pain, lower extremity edema. No palpitations, orthopnea, syncopal events. RESPIRATORY: + Dyspnea, cough. No marked sputum, wheezing, hemoptysis. GASTROINTESTINAL: No anorexia, nausea, vomiting or diarrhea, abdominal pain, melena, BRBPR. GENITOURINARY: No dysuria, frequency, urgency or retention. NEUROLOGICAL: + Recent mechanical fall hitting his head, confusion. No syncope, paralysis, ataxia, numbness or tingling in the extremities, focal weakness, change in bowel or bladder control, seizure. MUSCULOSKELETAL: + muscle, back pain, joint pain or stiffness. HEMATOLOGIC: + Chronic anemia, easy bleeding/bruising. LYMPHATICS: No enlarged nodes. No history of splenectomy. PSYCHIATRIC: + History of anxiety. ENDOCRINOLOGIC: No reports of sweating, cold or heat intolerance. No polyuria or polydipsia. ALLERGIES: No history of asthma, hives, eczema or rhinitis. Vital Signs Vital Signs Vital Signs: 03/10/25 01:11 03/10/25 01:14 03/10/25 01:14 Temperature 100.5 F H 100.5 F H Temperature Source Oral Oral Pulse Rate 92 92 Respiratory Rate 37 H 30 H Respiratory Effort Short of Breath Accessory Muscle Use Nasal Flaring Respiratory Depth Shallow Respiratory Pattern Tachypnea Blood Pressure 156/77 H 156/77 H Blood Pressure Mean 103 103 Pulse Ox 92 93 Oxygen Delivery Method Nasal Cannula Nasal Cannula Nasal Cannula Oxygen Flow Rate (L/min) 2 2 2 Fraction of Inspired Oxygen (FIO2) 03/10/25 01:27 03/10/25 01:29 03/10/25 01:30 Temperature Temperature Source Pulse Rate 89 94 Respiratory Rate 30 H 40 H Respiratory Effort Respiratory Depth Respiratory Pattern Tachypnea Blood Pressure 138/69 H Blood Pressure Mean 92 Pulse Ox 96 Oxygen Delivery Method Bi-pap Bi-pap Oxygen Flow Rate (L/min) Fraction of Inspired Oxygen (FIO2) 03/10/25 01:32 03/10/25 01:39 03/10/25 01:40 Temperature Temperature Source Pulse Rate 90 Respiratory Rate 42 H 32 H Respiratory Effort Respiratory Depth Respiratory Pattern Tachypnea Blood Pressure Blood Pressure Mean Pulse Ox 97 94 95 Oxygen Delivery Method Nasal Cannula Nasal Cannula Oxygen Flow Rate (L/min) 2 2 Fraction of Inspired Oxygen (FIO2) 30 03/10/25 02:00 03/10/25 03:00 Temperature 99.3 F H 99.3 F H Temperature Source Oral Oral Pulse Rate 64 81 Respiratory Rate 32 H 32 H Respiratory Effort Respiratory Depth Respiratory Pattern Blood Pressure 126/64 H 120/48 L Blood Pressure Mean 84 72 Pulse Ox 93 92 Oxygen Delivery Method Nasal Cannula Nasal Cannula Oxygen Flow Rate (L/min) 2 2 Fraction of Inspired Oxygen (FIO2) Weight Weight: 256 lb 2.834 oz Body Mass Index (BMI) 37.8 Physical Exam Narrative Physical Examination: General: Awake, alert, oriented to self, place and recent events, currently cooperative, seated upright in ED bed, off BiPAP as he declined to continue, transition to nasal cannula, persistent tachypnea, fatigue ill-appearing. Skin: Normal color, normal turgor, no icterus, no cyanosis except occasional stage ecchymosis, abrasion. HEENT: AT/NC, EOMI, PERRLA, MMM, no carotid bruits, difficult to discern JVD given very thickened neck. Lungs: Significantly diminished, greater bases, mildly coarse, rhonchorous, increased respiratory rate with some accessory muscle usage but no severe distress, currently no significantly appreciated wheezing or rales. Heart: Regular rate and rhythm; no gallop, rub audible. Abdomen: Soft, obese, NTTP, distant BS, difficult to discern distention HSM given habitus. Extremities: No cyanosis, no clubbing, bilateral left greater than right pedal to mid deluna pitting edema, right lower extremity 1-2+, left lower extremity 2-3+ Neurological: Patient awake, alert, oriented as noted, cognitive function improved, nearing baseline intact; pupils equally reactive to light and accommodation, cranial nerves grossly normal, moving all 4 extremities, no focal deficits, strength severely globally decreased. Psychiatric: Affect appears flat, fatigued, ill-appearing, no acute evidence of depressive or anxiety feelings. Results Lab / Micro Data 03/10/25 01:20 03/10/25 01:20 Labs: Laboratory Results - last 24 hr 03/10/25 01:20: WBC 16.0 H, RBC 4.08 L, Hgb 12.0 L, Hct 35.4 L, MCV 86.8, MCH 29.4, MCHC 33.9, RDW Std Deviation 45.9 H, RDW Coeff of Carlos 14.5, Plt Count 466 H, MPV 9.8, Immature Gran % (Auto) 1.500 H, Neut % (Auto) 69.7, Lymph % (Auto) 16.7 L, [place] % (Auto) 11.1 H, Eos % (Auto) 0.6, Baso % (Auto) 0.4, Absolute Neuts (auto) 11.2 H, Absolute Lymphs (auto) 2.68, Nucleated RBC % 0, Differential Comment SCANNED, PT 17.0 H, INR 1.4, APTT 30.9, D-Dimer Quant (PE/DVT) 3.62 H*, Sodium 134, Potassium 3.6, Chloride 94 L, Carbon Dioxide 24.1, Anion Gap 16 H, BUN 12, Creatinine 1.01, Estim Creat Clear Calc 91.69, Est GFR (MDRD) Non-Af 83, BUN/Creatinine Ratio 12.2, Glucose 100 H, Lactic Acid 1.9, Calcium 8.2, Total Bilirubin 0.44, AST 48 H, ALT 55 H, Alkaline Phosphatase 128, NT pro BNP II 521, Total Protein 7.2, Albumin 3.4, Globulin 3.8, Albumin/Globulin Ratio 0.9 03/10/25 01:37: Ethyl Alcohol < 10.1 03/10/25 02:44: Urine Color Yellow, Urine Clarity Clear, Urine pH 6.0, Ur Specific [place] 1.015, Urine Protein 30 H, Urine Glucose (UA) Normal, Urine Ketones Negative, Urine Occult Blood 10 H, Urine Nitrite Negative, Urine Bilirubin 1 H, Urine Urobilinogen 4 H, Ur Leukocyte Esterase 25 H Micro: Microbiology 03/10/25 01:35 Mucosa - Nose SARS-CoV-2, Influenza & RSV (PCR) - Final ABG Data ABG results: ABG 03/10/25 01:38 Specimen Type ART Sample Site R Radial pH 7.53 H Bicarbonate Actual 27.5 H Total CO2 29 Base Excess 5 H O2 Saturation 95 O2 % 30.0 ABG pCO2 32.8 L ABG pO2 66 L Pardeep Test Positive Respiration Rate 12 O2 Delivery Device BiPAP Vent Mode Not entered POC PEEP 8 Peak Inspir Pressure 14 Imaging Radiology Impression Brain CT 03/10/25 01:36 IMPRESSION: No acute cerebrovascular abnormalities. If clinical symptoms persist, further evaluation with MRI may be considered as clinically warranted. No intra or extra-axial acute hemorrhage. Bilateral cerebral microvascular ischemic changes with brain involutional changes. Stable. Reading Location: [place] [id number] Assessment & Plan Assessment/Plan (1) Sepsis: QUALIFIERS: Sepsis acute organ dysfunction status: with acute organ dysfunction Sepsis type: sepsis due to unspecified organism Severe sepsis acute organ dysfunction type: encephalopathy Severe sepsis shock status: without septic shock Qualified Code(s): A41.9 - Sepsis, unspecified organism; R65.20 - Severe sepsis without septic shock; G93.41 - Metabolic encephalopathy PLAN: Plan The patient is a 64 y/o M w/ PMHx: CKD stage II per GFR trending, Chronic normocytic anemia, Hx CVA, Asthma/COPD, GERD, HTN, HLD, Tobacco use, EtOH abuse, Obesity, recent prolonged admission 02/27/2025-03/05/2025 admitted and treated for sepsis secondary to aspiration pneumonia with associated acute respiratory failure and metabolic encephalopathy complicated by alcohol withdrawal with delirium tremens as well as mild HFpEF exacerbation and COPD Exacerbation discharged on pulse dose prednisone therapy, new prescription of Lasix and potassium supplementation for now re-presents to the [facility] ED on 03/10/25 with sudden onset dyspnea awaking him from sleep with chills potentially the evening prior in addition to mild swelling of his legs in addition to left-sided lower chest discomfort following a fall 2 days prior reporting that he even hit his head at the time prompting ED evaluation. #1. Acute sepsis (febrile, tachypneic, respiratory distress requiring transient BiPAP attempt, leukocytosis, encephalopathy, source) secondary to Acute Encephalopathy secondary to Acute Hypoxic Respiratory Failure secondary to Acute BL PNA, Possible GN/GP Organisms and concern for Acute Pulmonary Embolism: Will admit to ICU given septic presentation, held on aggressive 30 cc/kg IVF administration in the ED and upon admission given recent HFpEF exacerbation, also in the ED patient declined any further BiPAP usage, maintain on oxygen with wean as tolerated to room air, continue ATC duonebs, PRN albuterol, maintained on IV cefepime, azithromycin and Vancomycin, shrub planter consulted, will reconsult infectious disease given readmission, HOB, IS parameters w/ pending sputum cultures, full respiratory viral panel and urine antigens. Bld cx x 2 obtained in the ED. awaiting final read for CTPA and if positive will initiate on anticoagulant therapy with heparin drip otherwise we will continue with chemoprophylactic Lovenox dosing. PT/OT/ST/Case management consulted for discharge planning. #2. Recent sepsis secondary to aspiration pneumonia complicated by #2, #3, #4: Patient during admission with septic presentation felt secondary to aspiration pneumonia, treated with a significant intensive broad-spectrum antibiotic course with IV vancomycin, cefepime, doxycycline and Flagyl with vancomycin and doxycycline eventually discontinued on 03/02 with continuation of cefepime and Flagyl at that time with eventual completion of antibiotic therapy. Speech therapy evaluation with 03/02/2025 MBSS with recommendation for pur?e/thin by ryan with a total feed at that time however liquids were not tolerated by teaspoon therefore transition back to n.p.o. status. 03/05/2025 evaluation with no evidence of any overt aspiration or change in vocal cord quality. Diet was upgraded that time to soft and bite-size diet with thin liquids when properly positioned and alert with recommended small bites/small sip, slow rate and alternating solids and liquids. #3. Recent mild HFpEF exacerbation: Echocardiogram during previous admission with EF 50%, mild concentric LVH with no other concerning findings, initial BNP 1400 on 02/28, increased to 2900 on 03/01 despite IV diuresis per review of records. Patient did require transient Airvo application. Will continue patient home Plavix, statin, lisinopril, Lasix, not on beta-jamal therapy. Cautiously hydrating as needed. #4. Recent acute alcohol withdrawal with concerns for delirium tremens: Patient during previous admission with agitation and confusion initially on phenobarbital taper will with some improvement however did require transient Precedex usage for agitation, ethyl alcohol level unremarkable, denies any alcohol use since recent discharge, will maintain on MVI, thiamine and folic acid. Mag and Phos levels requested. #5. Recent exacerbation with acute on chronic COPD/asthma with allergic rhinitis: Will maintain on oxygen with wean as tolerated to room air/home oxygen supplementation, continue ATC duonebs, PRN albuterol, HOB, IS parameters, completed recent burst steroid therapy at recent discharge. Will continue home montelukast regimen. #6. Chronic Kidney Disease Stage II per GFR trending: Admission BUN/Cr 12/1.01, GFR 83, baseline renal function primarily 0.9-1.1, repeat BMP in AM. #7. Chronic normocytic anemia: Admission hemoglobin 12, MCV 86.8, baseline hemoglobin recently noted to be primarily 11 range, will continue to trend CBC. #8. History of CVA: Will continue Plavix, statin, hypertensive regimen as noted. No diabetic history. #9. Hypertension: Continue home regimen including lisinopril, PRN hydralazine. #10. Hyperlipidemia: Will continue patient on statin therapy. #11. Tobacco Abuse: Encouraged cessation, inpatient consultation per RT, NR if desired. #12. Obesity: Weight loss and lifestyle changes encouraged. #13. GERD: Will continue patient on PPI. #14. DVT prophylaxis: Lovenox. #15. CODE status: Patient HCPOA and living will are not in place but he notes his who is present would be his medical decision maker if necessary. Discussed CODE status at length including difference between FULL code, DNR-CCA and DNR-CC status. Following discussions about the differences in these status, requested Full Code status. Advanced Care Planning Face to Face Time: 16 minutes. Charges/Coding Visit Charges Inpatient E&M: 56640 Init Hosp L3 Procedures Hospitalists Procedures: 74887 Advncd Care Plan 30 Min
[2025-03-10] MEDS: Cefepime HCl 2 GM in 0.9% Normal Saline (100mL MB+) 100 ML IV ×3 (03:49→22:07)
[2025-03-10] MEDS: Vancomycin HCl 2,000 MG in 0.9% Normal Saline (500mL Bag) 500 ML 250 MG IV (04:26)
--- OUTSIDE RECORDS SUMMARY | 2025-03-10 04:35 | XMS RPT_ITS | CCD ---
Author Organization [facility] Care Team Providers Care Bar Waiter/Waitress Name Role Phone Unavailable Primary Care Provider Unavailoseas Lanza DO Pilar F Primary Care Provider [phone] PROVIDER, UNKNOWN Referring Unavailable MYLA, PLIAR F Primary Care Unavailable Myla DO Pilar F Primary Care Provider [phone] Myla DO, Pilar F Primary Care Provider [phone] Unavailable Primary Care Provider Unavailoseas Wu RN, [...] Primary Care Unavailable BERTHA KAUR Attending Unavailable BERTHA KAUR Referring Unavailable SAV SANCHEZMIT Attending Unavailable [...] Attending Unavailable VIDHYA, LOIS Referring Unavailable Ross SUPERVISING BROKER-DERRICK BUILDER, Veronica Unavailable Ana COYLE, Dr. Avila Emergency Provider [phone] Anna Sanders PA-C Primary Care Provider Maya DO, Dr. Pennington Admit Provider Unavail able Dr. Mechelle Maya DO Attending Provider Unav ailable Maya DO, Dr. Pennington Other Provider Unavail able Ruba CACERES, Dr. Maira Cortes Other Provider [phone] Elena COYLE, Dr. Alvarez Attending Provider [phone] Didi COYLE, Dr. Lomeli Other Provider Dr. Pilar Gannon MD Other Provider [phone] Dr. Mechelle Maya DO Attending Provider Unav ailable Dr. Lavinia Kee MD Attending Provider Unavailab nkechi Bryan MD, Dr. Morales Other Provider Dr. Tj Harris MD Other Provider Dr. Mao Carmona MD Other Provider [phone] Sanya Reese DO Other Provider Carola CACERES, Dr. Mechelle Burkett Other Provider [phone] Gopi CACERES, Dr. Benítez Other Provider [phone] Fernando CACERES, Dr. Miranda Other Provider [phone] Mark CACERES, Dr. Robb Other Provider Alyce CACERES, Dr. Lawson Other Provider [phone] Ashu CACERES, Dr. Toure Other Provider Сергей CACERES, Dr. Trinidad Other Provider [phone] Leidy CACERES, Dr. Coronado Other Provider [phone] Lexi CACERES, Dr. Thao Other Provider Unavailabl mimi Guzman MD, Dr. Ramos Other Provider Paula CACERES, Dr. Vergara Other Provider [phone] Katina CACERES, Dr. Rivera Other Provider [phone] Kalra CACERES, Dr. Gordon Other Provider [phone] Raj COYLE, Dr. Naranjo Other Provider [phone] Magnolia CACERES, Dr. Mcneil Other Provider David CACERES, Dr. Loya Other Provider Marcie COYLE, Dr. Coelho Other Provider Abdias CACERES, Dr. Yeung Other Provider [phone] Vijay CACERES, Dr. Carson Other Provider Dr. Armani Tolbert DO Attending Provider Dr. Antonio Parker DO Other Provider [phone] Antonio Parker Attending Unavailable Mechelle Maya Consulting Unavailable Mechelle Maya Admitting Unavailable Anna Randolph Primary Care Unavailable Maira Yeh Consulting Unavailable Armani Tolbert Consulting Unavailable Pilar Gannon Consulting Unavailable Mechelle Maya Admitting Unavailable Mechelle Maya Consulting Unavailable Armani Tolbert Attending Unavailable Anna Randolph Primary Care Unavailable Andrew Bryan Consulting Unavailable Tj Harris Consulting Unavailable Mao Carmona Consulting Unavailable Sanya Reese Consulting Unavailable Mechelle Srivastava Consulting Unavailable Jeyson Nguyễn Consulting Unavailable Fernando, Ruben Consulting Unavailable Habtegeitziel, Clarisse Consulting Unavailab le Dand, Renny Consulting Unavailable [place], Mesfin Consulting Unavailable Allen Rushingin Consulting Unavailable Leidy, Ivonne Consulting Unavailable Aljunmaciel, Master Consulting Unavailable Guzman, Rachel Consulting Unavailable Paula, Jai Consulting Unavailable Irukulla, Miguel Consulting Unavailable Karla, Evan Consulting Unavailable Dhesi, Jose A Consulting Unavailable Merida, Ewa Consulting Unavailable [place], Soleyah Consulting Unavailable Ferjean, Raul Consulting Unavailable Abdias, Gamal Consulting Unavailable Alli Linares Consulting Unavailable Ruba, Maira Sophia Consulting Unavailable Pilar Gannon Consulting Unavailable Armani Tolbert Consulting Unavailable Antonio Parker Attending Unavailable Antonio Parker Consulting Unavailable Lavinia Kee Attending Unavailable Anna Randolph Primary Care Unavailable Mechelle Maya Attending Unavailable Maira Yeh Attending Unavailable NON-EPICCARE, PROVIDER Primary Care Unavailab le PROVIDER, UNKNOWN Admitting Unavailable KHALID, AURA Referring Unavailable VERONICA BUTT Attending Unavailable BRIAN ANGLIN Referring Unavaila ble NON-EPICCARE, PROVIDER Primary Care Unavailab le PROVIDER, UNKNOWN Attending Unavailable KHDAWSON, AURA Admitting Unavailable PROVIDER, UNKNOWN Attending Unavailable NON-EPICCARE, PROVIDER Primary Care Unavailab le PROVIDER, UNKNOWN Admitting Unavailable PROVIDER, UNKNOWN Admitting Unavailable NON-EPICCARE, PROVIDER Primary Care Unavailab MECHELLE Stren Attending Unavailable CONSULT, IP NEUROLOGY Consulting Unavailabl e NON-EPICCARE, PROVIDER Primary Care Unavailab le PROVIDER, UNKNOWN Admitting Unavailable RACHNA CAPPS Attending Unavailable BRIAN ANGLIN Referring Unavaila ble REQUEST, IP PHYSICAL THERAPY SERVICE Consulting Unavailable NON-EPICCARE, PROVIDER Primary Care Unavailab le KHALID, AURA Admitting Unavailable KHALID, AURA Attending Unavailable PROVIDER, UNKNOWN Admitting Unavailable NON-EPICCARE, PROVIDER Primary Care Unavailab ANNA Johnson Attending Unavailable Allergies Allergy Classification Reported Allergen(s) Allergy Type Date of Onset Reaction(s) Facility Penicillins (antibiotic) (5 sources) Penicillins Drug Allergy 5 Unknown [facility] (20 sources) Penicillins; Translations: [PENICILLINS] Propensity to adverse reactions to drug 02-09-201 5 Unknown, Other: See Comments [facility] Comment on above: tolerated cefepime (16 sources) Roflumilast; Translations: [ROFLUMILAST] Drug Allergy 4 Rash [facility] Work Phone: (17 sources) Roflumilast Drug Allergy 4 Rash [facility] Medications Current Medications Medication Drug Class(es) Dates Sig (Normalized) Sig (Original) [id number] 200 actuat albuterol 0.09 mg/actuat metered dose [...] needed for wheezing/shortness of breath. 3 Each 01/06/2024 Active Start: 08-20-2023 End: 10-19-2023 take [...] mg tablet Active 40 mg PO DAILY 7 March 05, 2025 12:00am 1 daily for [...] Oral, DAILY, 5 doses, First dose on 10/25/24 at 0900, Last dose on 10/29/24 at [...] Start: 08-27-2014 take 2 tablets by mo [facility] once daily predniSONE (DELTASONE) 20 mg tablet Indications: Acute bronchitis Take 2 tablet by mouth daily for 5 days. 10 tablet 0 08/27/2014 Active Comment on above: Take 2 tablet by [facility] daily for 5 days. Take 1 tablet by [facility] as directed. TID for 4 days [...] for 23 days. Take 1 tablet by [facility] two times a day. Patient should [...] Start: 07-29-2024 take 2 tablets by mo [facility] every six hours acetaminophen (TYLENOL) 325 mg [...] HOURS NEEDED as needed for Pain 12 3 March 22, 2022 February 26, 2025 11:48pm Fracture of triquetrum of right wrist Start: 03-22-2022 take 1 tablet by shahla th every six hours as needed Hydrocodone-Acetaminophen Active 1 TABLE T PO EVERY 6 HOURS NEEDED 12 March 22, 2022 budesonide 0.25 mg/ml inhalation suspension [...] at 0830, Until Discontinued polyethylene glycol 3350 68831 mg powder for oral solution (7 sources) Osmotic Laxative Start: 17 g, Oral, DAILY, First dose on Wed10/24/24 at 2030, Until Discontinued Start: 07-29-2024 polyethylene g lycol 3350 17 gram packet Take 1 Packet by mouth once daily as needed. Dissolve dose in 4 - 8 ounces of liquid and take as directed. 07/29/2024 Active sennosides, [facility] 8.6 mg oral tablet (1 source) Start: [...] Interpretation Reference Range Facility Telephone Encounteron 2024 [facility] Authentication Interface Message Text Pt is not taking Nexium according to his chart Normal [facility] Authentication Interface Message Text Did the hospital decrease the lisinopril? If so he should take whats on his discharge orders Normal [facility] Telephone Encounteron 2024 [facility] Authentication Interface Message Text Pharmacy is calling to request clarification on the following prescription: Reason for call: drug interaction between esomeprazole (NEXIUM) 40 MG capsule And clopidogrel (Plavix) 75 MG tablet Also duplicate therapy between umeclidinium-vilanter ol (ANORO-ELLIPTA) 62.5-25 mcg/inh AEPB inhalation powder And ipratropium-albuterol (DUO-NEB) 0.5-2.5 (3) MG/3ML nebulizer solution Pharmacy name: Annika with [facility] phone: [phone] Please contact pharmacy to clarify or submit an updated prescription. Thank you. Normal [facility] Authentication Interface Message Text Situation: Annika with [facility] calling to let provider know PT was started Background: Annika is asking for order for forward wheeled walker for Pt Assessment: - Recommendation: Please return call to Annika: [phone] and is secure line for voicemail. Normal [facility] [employer] Interface Message Text Situation: loida speech therapist, calling from [facility] wanted to notify that will be seeing pt for speech therapy next week instead of this week. Background: n/a Assessment: n/a Recommendation: will route to pcp Normal [facility] Telephone Encounteron 2024 [facility] Authentication Interface Message Text Situation: Greta from [facility] calling Background: pt was admitted and had [...] further questions Greta can be reached at [phone] Normal [facility] Telephone Encounteron 2024 [facility] Authentication Interface Message Text Mi was contacted and informed that STEVE Sanders agrees to follow this pt for home care. Normal [facility] Authentication Interface Message Text Yes I am Normal [facility] Interface Message Text Situation: Mi calling from [facility]. They are schedule to start home car services tomorrow for SN/PT/OT and speech therapies Background: pt recently was hospitalized for aspiration pneumonia, resp failure and sepsis Assessment: - Recommendation: asking is you's be willing to follow this patient. They can be reached at [phone]. Normal The [facility] Culture, Blood (WB)on 2024 CUB Blood cultures x2, from two different sites No growth in 5 days. Normal [facility] Comment on above: Performed By: #### L 100.0500, L500.2500 #### [facility] [address] [place], [address] Discharge Instructionon 02-16 Discharge Instruction [facility] Medical Records Department [address] [place] [address] Instructions for Home/Discharge Instructions 03/05/25 1620 MR#: [id number] Acct: [id number] Name: ELIS BLILS Rep #: [id number] : 1960 64 From: Antonio Parker DO [...] placed): Home Health Service 03/05/25 1626 Antonio Elena COYLE CC: STEVE Sanders; Dr. Armani Tolbert DO; Dr. Mechelle Maya DO; Dr. Maira Yeh MD; Dr. Pilar Gannon MD Signed Normal [facility] Culture, Blood (WB)on 2024 CUB Blood cultures x2, from two different sites No growth in 5 days. Normal [facility] Comment on above: Performed By: #### L 503.7505, L501.5200, L501.2300 #### [facility] [address] [place], [place], [id number] Anion gap in Serum or Plasma Ordered By: Armani Tolbert on 03-03-2025 Anion gap [Moles/Vol] 9 mmol/L - [facility] BUN/creatinine ratioOrdered By: Armani Tolbert on 03-03-2025 Urea nitrogen/Creatinine [Mass ratio] 29.9 mg/mg High 05-07 [facility] Basic Metabolic Profile (BMP )on 03-03-2025 BUN/CRE 29.9 RATIO High 05-07 [facility] Comment on above: Performed By: #### L 100.0500, L500.2500 #### [facility] [address] [place], [address] Calcium [Mass/Vol] 8.6 mg/dL Normal 7.6-11.0 [facility] Comment on above: Performed By: #### L 100.0500, L500.2500 #### [facility] [address] [place], [address] Chloride [Moles/Vol] 111 mmol/L High 98-108 [facility] Comment on above: Performed By: #### L 100.0500, L500.2500 #### [facility] [address] [place], [address] CO2 [Moles/Vol] 22.7 mmol/L Normal 21.0-32.0 [facility] Comment on above: Performed By: #### L 100.0500, L500.2500 #### [facility] [address] [place], [address] Creatinine [Mass/Vol] 0.86 mg/dL Normal 0.70-1.20 [facility] Comment on above: Performed By: #### L 100.0500, L500.2500 #### [facility] [address] [place], [address] ECRCL 111.12 ml/min Normal 50-250 [facility] Comment on above: Performed By: #### L 100.0500, L500.2500 #### [facility] [address] [place], [address] GAP 9 Normal 5-15 [facility] Comment on above: Performed By: #### L 100.0500, L500.2500 #### [facility] [address] [place], [address] GFR/1.73 sq M.predicted among non-blacks MDRD (S/P/Bld) [Vol rate/Area] 96 mL/min/{1.73_m2} Normal >60 [facility] Comment on above: Result Comment: mL/m in/1.73m2 CKD-EPI Creatinine Equation (2020) Performed By: #### L 100.0500, L500.2500 #### [facility] [address] [place], [address] Glucose [Mass/Vol] 134 mg/dL High 70-99 [facility] Comment on above: Performed By: #### L 100.0500, L500.2500 #### [facility] [address] [place], [address] Potassium [Moles/Vol] 4.2 mmol/L Normal 3.3-5.1 [facility] Comment on above: Performed By: #### L 100.0500, L500.2500 #### [facility] [address] [place], [address] Sodium [Moles/Vol] 142 mmol/L Normal 133-145 [facility] Comment on above: Performed By: #### L 100.0500, L500.2500 #### [facility] [address] [place], [address] Urea nitrogen [Mass/Vol] 26 mg/dL High 4-19 [facility] Comment on above: Performed By: #### L 100.0500, L500.2500 #### [facility] [address] [place], [address] CBC-Complete Blood Cnt No Di ffon 03-03-2025 Erythrocyte distribution width (RBC) [Ratio] 14.9 % High 11.6-14.6 [facility] Comment on above: Performed By: #### L 100.0500, L500.2500 #### [facility] [address] [place], [address] Hematocrit (Bld) [Volume fraction] 33.9 % Low 40-54 [facility] Comment on above: Performed By: #### L 100.0500, L500.2500 #### [facility] [address] [place], [address] Hemoglobin (Bld) [Mass/Vol] 11.1 g/dL Low 13.0-16.5 [facility] Comment on above: Performed By: #### L 100.0500, L500.2500 #### [facility] [address] [place], [address] MCH (RBC) [Entitic mass] 29.1 pg Normal 27.0-32.0 [facility] Comment on above: Performed By: #### L 100.0500, L500.2500 #### [facility] [address] [place], [address] MCHC (RBC) [Mass/Vol] 32.7 g/dL Normal 32-36 [facility] Comment on above: Performed By: #### L 100.0500, L500.2500 #### [facility] [address] [place], [address] MCV (RBC) [Entitic vol] 88.7 fL Normal 80-94 [facility] Comment on above: Performed By: #### L 100.0500, L500.2500 #### [facility] [address] [place], [address] Platelet mean volume (Bld) [Entitic vol] 10.0 fL Normal 6.2-12.0 [facility] Comment on above: Performed By: #### L 100.0500, L500.2500 #### [facility] [address] [place], [address] Platelets (Bld) [#/Vol] 318 10*3/uL Normal 150-450 [facility] Comment on above: Performed By: #### L 100.0500, L500.2500 #### [facility] [address] [place], [address] RBC (Bld) [#/Vol] 3.82 10*6/uL Low 4.6-6.2 [facility] Comment on above: Performed By: #### L 100.0500, L500.2500 #### [facility] [address] [place], [address] RDW SD 48.5 fl High 35.1-43.9 [facility] Comment on above: Performed By: #### L 100.0500, L500.2500 #### [facility] [address] [place], [address] WBC (Bld) [#/Vol] 10.7 10*3/uL Normal 4.4-11.0 [facility] Comment on above: Performed By: #### L 100.0500, L500.2500 #### [facility] [address] [place], [address] Carbon dioxide, total [Moles /volume] in Central venous bloodOrdered By: Armani Tolbert on 03-03-2025 CO2 [Moles/Vol] 22.7 mmol/L 21.0-32.0 [facility] Chloride assayOrdered By: Hunter Tolbert on 03-03-2025 Chloride [Moles/Vol] 111 mmol/L High 98-108 [facility] Erythrocyte distribution wid th ratioOrdered By: Armani Tolbert on 03-03-2025 Erythrocyte distribution width (RBC) [Ratio] 14.9 % High 11.6-14.6 [facility] Erythrocyte distribution wid th standard deviationOrdered By: Armani Tolbert on 03-03-2025 Erythrocyte distribution width (RBC) [Ratio] 48.5 fl High 35.1-43.9 [facility] Glomerular filtration rate ( GFR) estimation/1.73 sq m using serum, plasma, or whole bOrdered By: Armani Tolbert on 03-03-2025 GFR/1.73 sq M.predicted among non-blacks MDRD (S/P/Bld) [Vol rate/Area] 96 mL/min/{1.73_m2} >60 [facility] Comment on above: mL/min/1.73m2 CKD-EP I Creatinine Equation (2020) Hematocrit Auto (Bld) [Volum e fraction]Ordered By: Armani Tolbert on 03-03-2025 Hematocrit (Bld) [Volume fraction] 33.9 % Low 40-54 [facility] Hemoglobin measurementOrdere d By: Armani Tolbert on 03-03-2025 Hemoglobin (Bld) [Mass/Vol] 11.1 g/dL Low 13.0-16.5 [facility] MCV (mean corpuscular volume ) determinationOrdered By: Armani Tolbert on 03-03-2025 MCV (RBC) [Entitic vol] 88.7 fL 80-94 [facility] Mean corpuscular hemoglobin (MCH) determinationOrdered By: Armani Tolbert on 03-03-2025 MCH (RBC) [Entitic mass] 29.1 pg 27.0-32.0 [facility] Mean corpuscular hemoglobin concentration (MCHC) determinationOrdered By: Armani Tolbert on 03-03-2025 MCHC (RBC) [Mass/Vol] 32.7 g/dL 32-36 [facility] Mean platelet volume determi nationOrdered By: Armani Tolbert on 03-03-2025 Platelet mean volume (Bld) [Entitic vol] 10.0 fL 6.2-12.0 [facility] Platelet countOrdered By: Hunter Tolbert on 03-03-2025 Platelets (Bld) [#/Vol] 318 10*3/uL 150-450 [facility] Potassium measurement (mass/ volume)Ordered By: Armani Tolbert on 03-03-2025 Potassium (Unsp spec) [Mass/Vol] 4.2 mmol/L 3.3-5.1 [facility] RBC Auto (Bld) [#/Vol]Ordere d By: Armani Tolbert on 03-03-2025 RBC (Bld) [#/Vol] 3.82 10*6/uL Low 4.6-6.2 [facility] Serum creatinine measurement (mass/volume)Ordered By: Armani Tolbert on 03-03-2025 Creatinine [Mass/Vol] 0.86 mg/dL 0.70-1.20 [facility] Serum glucose measurement (m ass/volume)Ordered By: Armani Tolbert on 03-03-2025 Glucose [Mass/Vol] 134 mg/dL High 70-99 [facility] Serum or plasma calcium sidra urement (mass/volume)Ordered By: Armani Tolbert on 03-03-2025 Calcium [Mass/Vol] 8.6 mg/dL 7.6-11.0 [facility] Serum or plasma urea nitroge n measurement (mass/volume)Ordered By: Armani Tolbert on 03-03-2025 Urea nitrogen [Mass/Vol] 26 mg/dL High 4-19 [facility] Sodium levelOrdered By: Chang Tolbert on 03-03-2025 Sodium [Moles/Vol] 142 mmol/L 133-145 [facility] White blood cell (WBC) count Ordered By: Armani Tolbert on 03-03-2025 WBC (Bld) [#/Vol] 10.7 10*3/uL 4.4-11.0 [facility] Basic Metabolic Profile (BMP )on 03-02-2025 BUN/CRE 20.9 RATIO High 10-20 [facility] Comment on above: Performed By: #### L 100.0500, L500.2500 #### [facility] [address] [place], [address] Calcium [Mass/Vol] 8.4 mg/dL Normal 7.6-11.0 [facility] Comment on above: Performed By: #### L 100.0500, L500.2500 #### [facility] [address] [place], [address] Chloride [Moles/Vol] 106 mmol/L Normal 98-108 [facility] Comment on above: Performed By: #### L 100.0500, L500.2500 #### [facility] [address] [place], [address] CO2 [Moles/Vol] 18.4 mmol/L Low 21.0-32.0 [facility] Comment on above: Performed By: #### L 100.0500, L500.2500 #### [facility] [address] [place], [address] Creatinine [Mass/Vol] 1.03 mg/dL Normal 0.70-1.20 [facility] Comment on above: Performed By: #### L 100.0500, L500.2500 #### [facility] [address] [place], [address] ECRCL 93.47 ml/min Normal 50-250 [facility] Comment on above: Performed By: #### L 100.0500, L500.2500 #### [facility] [address] [place], [address] GAP 12 Normal 5-15 [facility] Comment on above: Performed By: #### L 100.0500, L500.2500 #### [facility] [address] [place], [address] GFR/1.73 sq M.predicted among non-blacks MDRD (S/P/Bld) [Vol rate/Area] 81 mL/min/{1.73_m2} Normal >60 [facility] Comment on above: Result Comment: mL/m in/1.73m2 CKD-EPI Creatinine Equation (2020) Performed By: #### L 100.0500, L500.2500 #### [facility] [address] [place], [address] Glucose [Mass/Vol] 123 mg/dL High 70-99 [facility] Comment on above: Performed By: #### L 100.0500, L500.2500 #### [facility] [address] [place], [address] Potassium [Moles/Vol] 4.3 mmol/L Normal 3.3-5.1 [facility] Comment on above: Performed By: #### L 100.0500, L500.2500 #### [facility] [address] [place], [address] Sodium [Moles/Vol] 137 mmol/L Normal 133-145 [facility] Comment on above: Performed By: #### L 100.0500, L500.2500 #### [facility] [address] [place], [address] Urea nitrogen [Mass/Vol] 22 mg/dL High 4-19 [facility] Comment on above: Performed By: #### L 100.0500, L500.2500 #### [facility] [address] [place], [address] CBC-Complete Blood Cnt No Di ffon 03-02-2025 Erythrocyte distribution width (RBC) [Ratio] 14.9 % High 11.6-14.6 [facility] Comment on above: Performed By: #### L 100.0500, L500.2500 #### [facility] [address] [place], [address] Hematocrit (Bld) [Volume fraction] 34.8 % Low 40-54 [facility] Comment on above: Performed By: #### L 100.0500, L500.2500 #### [facility] [address] [place], [address] Hemoglobin (Bld) [Mass/Vol] 11.3 g/dL Low 13.0-16.5 [facility] Comment on above: Performed By: #### L 100.0500, L500.2500 #### [facility] [address] [place], [address] MCH (RBC) [Entitic mass] 29.2 pg Normal 27.0-32.0 [facility] Comment on above: Performed By: #### L 100.0500, L500.2500 #### [facility] [address] [place], [address] MCHC (RBC) [Mass/Vol] 32.5 g/dL Normal 32-36 [facility] Comment on above: Performed By: #### L 100.0500, L500.2500 #### [facility] [address] [place], [address] MCV (RBC) [Entitic vol] 89.9 fL Normal 80-94 [facility] Comment on above: Performed By: #### L 100.0500, L500.2500 #### [facility] [address] [place], [address] Platelet mean volume (Bld) [Entitic vol] 9.8 fL Normal 6.2-12.0 [facility] Comment on above: Performed By: #### L 100.0500, L500.2500 #### [facility] [address] [place], [address] Platelets (Bld) [#/Vol] 274 10*3/uL Normal 150-450 [facility] Comment on above: Performed By: #### L 100.0500, L500.2500 #### [facility] [address] [place], [address] RBC (Bld) [#/Vol] 3.87 10*6/uL Low 4.6-6.2 [facility] Comment on above: Performed By: #### L 100.0500, L500.2500 #### [facility] [address] [place], [address] RDW SD 48.7 fl High 35.1-43.9 [facility] Comment on above: Performed By: #### L 100.0500, L500.2500 #### [facility] [address] [place], [address] WBC (Bld) [#/Vol] 13.9 10*3/uL High 4.4-11.0 [facility] Comment on above: Performed By: #### L 100.0500, L500.2500 #### [facility] [address] [place], [address] Modified Barium Swallow Stud yon 03-02-2025 Modified Barium Swallow Study [facility] Speech Pathology [address] [place] [address] Modified Barium Swallow Study MR#: [id number] Acct: [id number] Name: ELIS BILLS Rep #: [id number] : 1960 64 From: Kip Rodriguez M.A., [facility] OFF[facility] ASST Modified Barium Swallow Patient Information Study Date: [...] lumbar region (without claudication).??? Patient presented to [facility] ED 02/27/2025 w/ AMS. Per , pt [...] 03/01/2025 and he was made strict NPO. MEDICAL OFFICE ASST re-assessed pt at bedside today and recommended [...] cup: Result: 2= enter airway/above vocal folds/ejected [place] Thick Liquid via sequential sips: cup: Result: [...] in pyriform (more content not included)... Normal [facility] Trough vancomycin levelOrder ed By: Maira Yeh on 03-02-2025 Vancomycin trough [Mass/Vol] 21.3 ug/mL High 5.0-15.0 [facility] Comment on above: Recommended goal tro [...] therapy recommended for serious lifethreatening infections include:- Voyynuvhte-Yndssbqpztap-Fmetthphl (Ventilator/Healtcare Associated)-Sepsis PLEASE CONTACT PHARMACY SERVICES (#[id number]) FOR INTERPRETATIONOF RESULTS. Vancomycin, Trough Levelon 0 03-02-2025 VANCO, TROUGH 21.3 ug/mL High 5.0-15.0 [facility] Comment on above: Order Comment: Comme nts: Trough to be drawn 30 mins prior to scheduled [id number] Result Comment: Alexandro mmended goal trough ranges [...] (Ventilator/Healtcare Associated) -Sepsis PLEASE CONTACT PHARMACY SERVICES (#[id number]) FOR INTERPRETATION OF RESULTS. Performed By: #### L 503.7505, L501.5200, L501.2300 #### [facility] [address] [place], [address] Absolute lymphocyte countOrd ered By: Maira Yeh on 03-01-2025 Lymphocytes Auto (Unsp spec) [#/Vol] 1.09 10*3/uL 0.83-4.51 [facility] Absolute neutrophil countOrd ered By: Maira Yeh on 03-01-2025 Neutrophils (Bld) [#/Vol] 10.7 10*3/uL High 2.0-7.7 [facility] Assessment of wrist artery p atency prior to arterial punctureOrdered By: Armani Tolbert on 03-01-2025 Arterial patency Wrist artery --pre arterial puncture Positive [facility] Automated lymphocyte count a s percentage of total leukocytesOrdered By: Maira Yeh on 03-01-2025 Lymphocytes/100 WBC Auto (Unsp spec) 8.4 % Low 19-41 [facility] Basic Metabolic Profile (BMP )on 03-01-2025 BUN/CRE 16.7 RATIO Normal 10-20 [facility] Comment on above: Performed By: #### M 100.638 #### [facility] [address] [place], [address] Calcium [Mass/Vol] 7.6 mg/dL Normal 7.6-11.0 [facility] Comment on above: Performed By: #### M 100.638 #### [facility] [address] [place], [address] Chloride [Moles/Vol] 103 mmol/L Normal 98-108 [facility] Comment on above: Performed By: #### M 100.638 #### [facility] [address] [place], [address] CO2 [Moles/Vol] 20.5 mmol/L Low 21.0-32.0 [facility] Comment on above: Performed By: #### M 100.638 #### [facility] [address] [place], [address] Creatinine [Mass/Vol] 1.09 mg/dL Normal 0.70-1.20 [facility] Comment on above: Performed By: #### M 100.638 #### [facility] [address] [place], [address] ECRCL 87.71 ml/min Normal 50-250 [facility] Comment on above: Performed By: #### M 100.638 #### [facility] [address] [place], [address] GAP 11 Normal 5-15 [facility] Comment on above: Performed By: #### M 100.638 #### [facility] [address] [place], [address] GFR/1.73 sq M.predicted among non-blacks MDRD (S/P/Bld) [Vol rate/Area] 75 mL/min/{1.73_m2} Normal >60 [facility] Comment on above: Result Comment: mL/m in/1.73m2 CKD-EPI Creatinine Equation (2020) Performed By: #### M 100.638 #### [facility] [address] [place], [address] Glucose [Mass/Vol] 109 mg/dL High 70-99 [facility] Comment on above: Performed By: #### M 100.638 #### [facility] [address] [place], [address] Potassium [Moles/Vol] 4.3 mmol/L Normal 3.3-5.1 [facility] Comment on above: Performed By: #### M 100.638 #### [facility] [address] [place], [address] Sodium [Moles/Vol] 134 mmol/L Normal 133-145 [facility] Comment on above: Performed By: #### M 100.638 #### [facility] [address] [place], [address] Urea nitrogen [Mass/Vol] 18 mg/dL Normal 4-19 [facility] Comment on above: Performed By: #### M 100.638 #### [facility] [address] [place], [address] Basophil percentageOrdered B y: Maira Yeh on 03-01-2025 Basophils/100 WBC (Bld) 0.8 % 0-1 [facility] Bilirubin directOrdered By: Armani Tolbert on 03-01-2025 Bilirubin.direct [Mass/Vol] 0.24 mg/dL 0.00-0.30 [facility] Bilirubin, totalOrdered By: Armani Tolbert on 03-01-2025 Bilirubin [Mass/Vol] 0.47 mg/dL 0.00-1.30 [facility] RYAN TEST Positive Normal [facility] Comment on above: Performed By: #### L 9000.0800 ####[facility] [address] [place], [address] Base excess Calc (Bld) [Moles/Vol] -2 mmol/L Normal -2 to +2 [facility] Comment on above: Performed By: #### L 9000.0800 ####[facility] [address] [place], [address] Blood Gas Type ART Normal [facility] Comment on above: Performed By: #### L 9000.0800 ####[facility] [address] [place], [address] CO2 [Moles/Vol] 24 mmol/L Normal [facility] Comment on above: Performed By: #### L 9000.0800 ####[facility] [address] [place], [address] Comment airvo Normal [facility] Comment on above: Performed By: #### L 9000.0800 ####[facility] [address] [place], [address] FI02 45.0 Normal [facility] Comment on above: Performed By: #### L 9000.0800 ####[facility] [address] [place], [address] HCO3 (Bld) [Moles/Vol] 22.8 mmol/L Normal 22-26 [facility] Comment on above: Performed By: #### L 9000.0800 ####[facility] [address] [place], [address] Mode Not entered [facility] Comment on above: Performed By: #### L 9000.0800 ####[facility] [address] [place], [address] O2 Delivery Dev Not entered [facility] Comment on above: Performed By: #### L 9000.0800 ####[facility] [address] [place], [address] pCO2 36.7 mmHg Normal 35-45 [facility] Comment on above: Performed By: #### L 9000.0800 ####[facility] [address] [place], [address] pH (Bld) 7.40 [pH] Normal 7.35-7.45 [facility] Comment on above: Performed By: #### L 9000.0800 ####[facility] [address] [place], [address] PO2 77 mmHG Normal 75-100 [facility] Comment on above: Performed By: #### L 9000.0800 ####[facility] [address] [place], [address] SITE R Radial Normal [facility] Comment on above: Performed By: #### L 9000.0800 ####[facility] [address] [place], [address] SO2 95 Normal 95-99 [facility] Comment on above: Performed By: #### L 9000.0800 ####[facility] [address] [place], [address] Blood base excess determinat ionOrdered By: Armani Tolbert on 03-01-2025 Base excess Calc (BldV) [Moles/Vol] -2 mmol/L -2-2 [facility] Blood bicarbonate measuremen tOrdered By: Armani Tolbert on 03-01-2025 HCO3 (Bld) [Moles/Vol] 22.8 mmol/L 22- [facility] Blood manual differential co mment interpretation (narrative result)Ordered By: Maira Yeh on 03-01-2025 Manual differential comment Иван (Bld) [Interp] SCANNED [facility] CBC W/Diff, Automatedon 02-16 PLT EST ADEQUATE Normal ADEQ [facility] Comment on above: Order Comment: Lyle wise note: For this sample, a platelet estimate isprovided rather than a platelet count due to plateletclumping. Other parameters associated with this sample arenot affected by platelet clumping. If a more accurateplatelet count is required, a redraw of the patient will benecessary. Performed By: #### M 100.638 #### [facility] [address] [place], [address] SMEAR COMMENT SCANNED Normal [facility] Comment on above: Order Comment: Lyle e note: For this sample, a platelet estimate isprovided rather than a platelet count due to plateletclumping. Other parameters associated with this sample arenot affected by platelet clumping. If a more accurateplatelet count is required, a redraw of the patient will benecessary. Performed By: #### M 100.638 #### [facility] [address] [place], [address] Chest 1 View (Portable)on Chest 1 View (Portable) [facility] Imaging Services [address] [place] [address] Chest 1 View (Portable) MR#: [id number] Acct: [id number] Name: ELIS BILLS Rep #: [id number] : 1960 M 64 From: Willy Arellano MD PCP: Anna Sanders PA-C Status: ADM IN Study: Chest 1 View (Portable) Date of Exam: 03/01/25 Exam# [id number] Ordering Dr: Mechelle Maya DO PROCEDURE: CHEST [...] lower lung zone airspace disease. Reading Location: [place] [address] CC: STEVE Sanders; Dr. Mechelle Maya DO Financial Aid Administrator: Signed Normal [facility] Consultation - Infectious Dx on 03-01-2025 Consultation - Infectious Dx [facility] Medical Records Department [address] [place] [address] Consultation - Infectious Dx 03/01/25 1045 MR#: [id number] Acct: [id number] Name: ELIS BILLS Rep #: [id number] : 1960 64 From: Pilar Gannon MD [...] h/o etoh abuse, obesity, COPD presented to [facility] 02/25 with 2 days confusion, fall at home. Had some pain in knee per 's report in ED. Admitted to icu, now on vanc/cefepime/flagyl/ doxy and iv steroids. Still with high fevers. Per nursing, when precedex is weaned, he is awake, talking, interactive, able to move head/neck. Full ROS limited due to to mental status. [facility] Medical History Hyperlipemia Hypertension GERD (gastroesophageal reflux [...] 82.5 H, Lymph % (Auto) 8.4 L, Young % (Auto) 7.3, Eos % (Auto) 0.2, [...] 3.1 Mi (more content not included)... Normal [facility] Eosinophil percentageOrdered By: Maira Yeh on 03-01-2025 Eosinophils/100 WBC (Bld) 0.2 % 0-5 [facility] Immature granulocytes/100 WB C Auto (Bld)Ordered By: Maira Yeh on 03-01-2025 Immature granulocytes/100 WBC (Bld) 0.800 % 0.0-0.9 [facility] Comment on above: IG% - Immature Granu locytes (promyelocytes, myelocytes and metamyelocytes) > 1% indicates that a LEFT SHIFT is Present. L509.7001on 03-01-2025 Procalcitonin 1.22 ng/mL High <=0.10 [facility] Comment on above: Result Comment: Inte [...] Performed By: #### L 100.0500, L500.2500 #### [facility] [address] [place], [address] Laboratory - Chemistry and C hemistry - challengeOrdered By: Armani Tolbert on 03-01-2025 AST [Catalytic activity/Vol] 77 U/L High <38 [facility] Liver Profileon 03-01-2025 Albumin [Mass/Vol] 3.2 g/dL Low 3.4-4.8 [facility] Comment on above: Performed By: #### L 100.0500, L500.2500 #### [facility] [address] [place], [address] ALK PHOS 95 U/L Normal 40-129 [facility] Comment on above: Performed By: #### L 100.0500, L500.2500 #### [facility] [address] [place], [address] ALT [Catalytic activity/Vol] 48 U/L High <=46 [facility] Comment on above: Performed By: #### L 100.0500, L500.2500 #### [facility] [address] [place], [address] AST [Catalytic activity/Vol] 77 U/L High <=37 [facility] Comment on above: Performed By: #### L 100.0500, L500.2500 #### [facility] [address] [place], [address] Bilirubin [Mass/Vol] 0.47 mg/dL Normal 0.00-1.30 [facility] Comment on above: Performed By: #### L 100.0500, L500.2500 #### [facility] [address] [place], [address] Bilirubin.direct [Mass/Vol] 0.24 mg/dL Normal 0.00-0.30 [facility] Comment on above: Performed By: #### L 100.0500, L500.2500 #### [facility] [address] [place], [address] Globulin (S) [Mass/Vol] 3.1 g/dL Normal 2.2-4.2 [facility] Comment on above: Performed By: #### L 100.0500, L500.2500 #### [facility] [address] [place], [place], [address] T PROT 6.3 g/dL Normal 5.9-8.4 [facility] Comment on above: Performed By: #### L 100.0500, L500.2500 #### [facility] [address] [place], [place], [address] Lyme Screen W/Reflex WBon LYME SCREEN Ab Negative Normal Negative [facility] Comment on above: Result Comment: Lyme [...] to 14 days is recommended. Performed at: [facility] [address] [id number] Test Lead Application Testing: Tang Loyola PhD, Phone: [phone] Performed By: #### L 7005.5305 ####[facility] [address] [place], [place], [id number] Measurement, pHOrdered By: Vikki Tolbert on 03-01-2025 pH (Unsp spec) 7.40 [pH] 7.35-7.45 [facility] Monocyte percentageOrdered B y: Maira Yeh on 03-01-2025 Monocytes/100 WBC (Bld) 7.3 % 0-10 [facility] Natriuretic peptide.B prohor dewey N-Terminal [Mass/volume] in Serum or PlasmaOrdered By: Mechelle Guerra on 03-01-2025 Natriuretic peptide.B prohormone N-Terminal [Mass/Vol] 2914 pg/mL High <900 [facility] Comment on above: Heart Failure Unlike ly: < 300 pg/mLHeart Failure Likely< 50 Years: > 450 pg/mL50-75 Years: > 900 pg/mL>75 Years: > 1800 pg/mL Neutrophil percentageOrdered By: Maira Yeh on 03-01-2025 Neutrophils/100 WBC (Bld) 82.5 % High 47-70 [facility] No Panel InformationOrdered By: Armani Tolbert on 03-01-2025 Blood Gas Clinical Comments airvo [facility] Blood Gas Sample Site R Radial [facility] Blood Gas Specimen Type ART [facility] Blood Gas Vent Mode Not entered [facility] Oxygen Delivery Device Not entered [facility] Nucleated red blood cell per centageOrdered By: Maira Yeh on 03-01-2025 Nucleated RBC/100 WBC (Bld) [Ratio] 0 % 0-5 [facility] Platelet estimateOrdered By: Maira Yeh on 03-01-2025 Platelets LM Ql (Bld) ADEQUATE ADEQ [facility] Pro- Brain NATRIURETIC PEPTI Pb 03-01-2025 Natriuretic peptide B (Bld) [Mass/Vol] 2914 pg/mL High <=900 [facility] Comment on above: Result Comment: Hear t Failure Unlikely: < 300 pg/mL Heart Failure Likely < 50 Years: > 450 pg/mL 50-75 Years: > 900 pg/mL >75 Years: > 1800 pg/mL Performed By: #### L 503.7505 ####[facility] [address] [place], [place], [address] Procalcitonin [Mass/volume] in Serum or Plasma by ImmunoassayOrdered By: Gamal Calero on 03-01-2025 Procalcitonin IA [Mass/Vol] 1.22 ng/mL High <0.11 [facility] Comment on above: Interpretation:<0.10 -0.25 ng/mL: [...] the patient. Serum globulin measurementOr dered By: Aramni Tolbert on 03-01-2025 Globulin (S) [Mass/Vol] 3.1 g/dL 2.2-4.2 [facility] Serum or plasma alanine betts otransferase (ALT) measurementOrdered By: Armani Tolbert on 03-01-2025 ALT [Catalytic activity/Vol] 48 U/L High <47 [facility] Serum or plasma albumin sidra urement (mass/volume)Ordered By: Armani Tolbert on 03-01-2025 Albumin [Mass/Vol] 3.2 g/dL Low 3.4-4.8 [facility] Serum or plasma alkaline ronal sphatase measurementOrdered By: Armani Tolbert on 03-01-2025 ALP [Catalytic activity/Vol] 95 U/L 40-129 [facility] Total carbon dioxide measure mentOrdered By: Armani Tolbert on 03-01-2025 CO2 [Moles/Vol] 24 mmol/L [facility] Total proteinOrdered By: Alejandra Tolbert on 03-01-2025 Protein [Mass/Vol] 6.3 g/dL 5.9-8.4 [facility] Urine Cultureon 03-01-2025 URC Below infection level. Mixed Gram Positive Organisms [place] Count <1000 [facility] Mixed contaminants. Submit a new specimen if indicated. Normal [facility] Comment on above: Performed By: #### L 503.7505, L501.5200, L501.2300 #### [facility] [address] [place], [address] Basic Metabolic Profile (BMP )on 02-28-2025 BUN/CRE 18.1 RATIO Normal 10-20 [facility] Comment on above: Performed By: #### L 100.0500, L500.2500 #### [facility] [address] [facility] [address] Calcium [Mass/Vol] 8.1 mg/dL Normal 7.6-11.0 [facility] Comment on above: Performed By: #### L 100.0500, L500.2500 #### [facility] [address] [place], [address] Chloride [Moles/Vol] 96 mmol/L Low 98-108 [facility] Comment on above: Performed By: #### L 100.0500, L500.2500 #### [facility] [address] [place], [address] CO2 [Moles/Vol] 20.0 mmol/L Low 21.0-32.0 [facility] Comment on above: Performed By: #### L 100.0500, L500.2500 #### [facility] [address] [place], [address] Creatinine [Mass/Vol] 0.99 mg/dL Normal 0.70-1.20 [facility] Comment on above: Performed By: #### L 100.0500, L500.2500 #### [facility] [address] [place], [address] ECRCL 94.97 ml/min Normal 50-250 [facility] Comment on above: Performed By: #### L 100.0500, L500.2500 #### [facility] [address] [place], [address] GAP 12 Normal 5-15 [facility] Comment on above: Performed By: #### L 100.0500, L500.2500 #### [facility] [address] [place], [address] GFR/1.73 sq M.predicted among non-blacks MDRD (S/P/Bld) [Vol rate/Area] 85 mL/min/{1.73_m2} Normal >60 [facility] Comment on above: Result Comment: mL/m in/1.73m2 CKD-EPI Creatinine Equation (2020) Performed By: #### L 100.0500, L500.2500 #### [facility] [address] [place], [address] Glucose [Mass/Vol] 115 mg/dL High 70-99 [facility] Comment on above: Performed By: #### L 100.0500, L500.2500 #### [facility] [address] [place], [address] Potassium [Moles/Vol] 4.0 mmol/L Normal 3.3-5.1 [facility] Comment on above: Performed By: #### L 100.0500, L500.2500 #### [facility] [address] [place], [address] Sodium [Moles/Vol] 129 mmol/L Low 133-145 [facility] Comment on above: Performed By: #### L 100.0500, L500.2500 #### [facility] [address] [place], [address] Urea nitrogen [Mass/Vol] 18 mg/dL Normal 4-19 [facility] Comment on above: Performed By: #### L 100.0500, L500.2500 #### [facility] [address] [place], [address] Blood Gases by [facility] 025 RYAN TEST Negative Normal [facility] Comment on above: Performed By: #### L 100.0500, L500.2500 #### [facility] [address] [place], [address] Base excess Calc (Bld) [Moles/Vol] 2 mmol/L Normal -2 to +2 [facility] Comment on above: Performed By: #### L 100.0500, L500.2500 #### [facility] [address] [place], [address] Blood Gas Type ART Normal [facility] Comment on above: Performed By: #### L 100.0500, L500.2500 #### [facility] [address] [place], [address] CO2 [Moles/Vol] 27 mmol/L Normal [facility] Comment on above: Performed By: #### L 100.0500, L500.2500 #### [facility] [address] [place], [address] FI02 3.0 Normal [facility] Comment on above: Performed By: #### L 100.0500, L500.2500 #### [facility] [address] [place], [address] HCO3 (Bld) [Moles/Vol] 25.5 mmol/L Normal 22-26 [facility] Comment on above: Performed By: #### L 100.0500, L500.2500 #### [facility] [address] [place], [address] Mode Not entered [facility] Comment on above: Performed By: #### L 100.0500, L500.2500 #### [facility] [address] [place], [address] O2 Delivery Dev Not entered [facility] Comment on above: Performed By: #### L 100.0500, L500.2500 #### [facility] [address] [place], [address] pCO2 34.3 mmHg Low 35-45 [facility] Comment on above: Performed By: #### L 100.0500, L500.2500 #### [facility] [address] [place], [address] pH (Bld) 7.48 [pH] High 7.35-7.45 [facility] Comment on above: Performed By: #### L 100.0500, L500.2500 #### [facility] [address] [place], [address] PO2 85 mmHG Normal 75-100 [facility] Comment on above: Performed By: #### L 100.0500, L500.2500 #### [facility] [address] [place], [address] SITE L Radial Normal [facility] Comment on above: Performed By: #### L 100.0500, L500.2500 #### [facility] [address] [place], [address] SO2 97 Normal 95-99 [facility] Comment on above: Performed By: #### L 100.0500, L500.2500 #### [facility] [address] [place], [address] Comment Temp correct 40.2C Normal [facility] Comment on above: Order Comment: Resul ts entered by Rosmery and verified by [employer]X [id number].Non-temperature corrected results: 7.484, pCO2 31.5 and pO267.5. Performed By: #### M 100.638 #### [facility] [address] [place], [address] Base excess Calc (Bld) [Moles/Vol] 0 mmol/L Normal -2 to +2 [facility] Comment on above: Order Comment: Resul ts entered by Rosmery and verified by [employer] [id number].Non-temperature corrected results: 7.484, pCO2 31.5 and pO267.5. Performed By: #### M 100.638 #### [facility] [address] [place], [address] CO2 [Moles/Vol] 25 mmol/L Normal [facility] Comment on above: Order Comment: Resul ts entered by Rosmery and verified by [employer] [id number].Non-temperature corrected results: 7.484, pCO2 31.5 and pO267.5. Performed By: #### M 100.638 #### [facility] [address] [place], [address] HCO3 (Bld) [Moles/Vol] 23.6 mmol/L Normal 22-26 [facility] Comment on above: Order Comment: Resul ts entered by Rosmery and verified by [employer] [id number].Non-temperature corrected results: 7.484, pCO2 31.5 and pO267.5. Performed By: #### M 100.638 #### [facility] [address] [place], [address] LPM 5.0 Normal [facility] Comment on above: Order Comment: Resul ts entered by Rosmery and verified by [employer] [id number].Non-temperature corrected results: 7.484, pCO2 31.5 and pO267.5. Performed By: #### M 100.638 #### [facility] [address] [place], [address] O2 Delivery Dev Nasal Can Normal [facility] Comment on above: Order Comment: Resul ts entered by Rosmery and verified by [employer] [id number].Non-temperature corrected results: 7.484, pCO2 31.5 and pO267.5. Performed By: #### M 100.638 #### [facility] [address] [place], [address] pCO2 36.2 mmHg Normal 35-45 [facility] Comment on above: Order Comment: Resul ts entered by Rosmery and verified by [employer] [id number].Non-temperature corrected results: 7.484, pCO2 31.5 and pO267.5. Performed By: #### M 100.638 #### [facility] [facility] [address] [place], [address] pH (Bld) 7.44 [pH] Normal 7.35-7.45 [facility] Comment on above: Order Comment: Resul ts entered by Rosmery and verified by sliceX 02-28-25711.Non-temperature corrected results: 7.484, pCO2 31.5 and pO267.5. Performed By: #### M 100.638 #### [facility] [address] [place], [address] PO2 84 mmHG Normal 75-100 [facility] Comment on above: Order Comment: Resul ts entered by Rosmery and verified by sliceX 02-28-25 07.Non-temperature corrected results: 7.484, pCO2 31.5 and pO267.5. Performed By: #### M 100.638 #### [facility] [address] [place], [address] SO2 95 Normal 95-99 [facility] Comment on above: Order Comment: Resul ts entered by Rosmery and verified by sliceX 02-28-25711.Non-temperature corrected results: 7.484, pCO2 31.5 and pO267.5. Performed By: #### M 100.638 #### [facility] [address] [place], [address] RYAN TEST Negative Normal [facility] Comment on above: Order Comment: Resul ts entered by Rosmery and verified by sliceX 02-28-25711.Non-temperature corrected results: 7.484, pCO2 31.5 and pO267.5. Performed By: #### M 100.638 #### [facility] [address] [place], [address] Blood Gas Type ART Normal [facility] Comment on above: Order Comment: Resul ts entered by Fernandopavan and verified by sliceX 02-28-25711.Non-temperature corrected results: 7.484, pCO2 31.5 and pO267.5. Performed By: #### M 100.638 #### [facility] [address] [place], [address] SITE R RADIAL Normal [facility] Comment on above: Order Comment: Resul ts entered by Rosmery and verified by sliceX 02-28-25711.Non-temperature corrected results: 7.484, pCO2 31.5 and pO267.5. Performed By: #### M 100.638 #### [facility] [address] [place], [address] CBC W/Diff, Automatedon 02-16 Absolute Lymph 1.01 X10 3/uL Normal 0.83-4.51 [facility] Comment on above: Performed By: #### L 100.0500, L500.2500 #### [facility] [address] [place], [address] Absolute Neut 10.9 X10 3/uL High 2.0-7.7 [facility] Comment on above: Performed By: #### L 100.0500, L500.2500 #### [facility] [address] [place], [address] Basophils/100 WBC (Bld) 0.4 % Normal 0-1 [facility] Comment on above: Performed By: #### L 100.0500, L500.2500 #### [facility] [address] [place], [address] Eosinophils/100 WBC (Bld) 0.5 % Normal 0-5 [facility] Comment on above: Performed By: #### L 100.0500, L500.2500 #### [facility] [address] [place], [address] Erythrocyte distribution width (RBC) [Ratio] 14.0 % Normal 11.6-14.6 [facility] Comment on above: Performed By: #### L 100.0500, L500.2500 #### [facility] [address] [place], [address] Hematocrit (Bld) [Volume fraction] 34.5 % Low 40-54 [facility] Comment on above: Performed By: #### L 100.0500, L500.2500 #### [facility] [address] [place], [address] Hemoglobin (Bld) [Mass/Vol] 11.7 g/dL Low 13.0-16.5 [facility] Comment on above: Performed By: #### L 100.0500, L500.2500 #### [facility] [address] [place], [address] IG% 0.900 Normal 0.0-0.9 [facility] Comment on above: Result Comment: IG% - Immature Granulocytes (promyelocytes, myelocytes and metamyelocytes) > 1% indicates that a LEFT SHIFT is Present. Performed By: #### L 100.0500, L500.2500 #### [facility] [address] [place], [address] Lymphocytes/100 WBC (Bld) 7.6 % Low 19-41 [facility] Comment on above: Performed By: #### L 100.0500, L500.2500 #### [facility] [address] [place], [address] MCH (RBC) [Entitic mass] 29.5 pg Normal 27.0-32.0 [facility] Comment on above: Performed By: #### L 100.0500, L500.2500 #### [facility] [address] [place], [address] MCHC (RBC) [Mass/Vol] 33.9 g/dL Normal 32-36 [facility] Comment on above: Performed By: #### L 100.0500, L500.2500 #### [facility] [address] [place], [address] MCV (RBC) [Entitic vol] 86.9 fL Normal 80-94 [facility] Comment on above: Performed By: #### L 100.0500, L500.2500 #### [facility] [address] [place], [address] Monocytes/100 WBC (Bld) 8.8 % Normal 0-10 [facility] Comment on above: Performed By: #### L 100.0500, L500.2500 #### [facility] [address] [place], [address] Neutrophils/100 WBC (Bld) 81.8 % High 47-70 [facility] Comment on above: Performed By: #### L 100.0500, L500.2500 #### [facility] [address] [place], [address] Nucleated RBC (Bld) [#/Vol] 0 10*3/uL Normal 0-5 [facility] Comment on above: Performed By: #### L 100.0500, L500.2500 #### [facility] [address] [place], [address] Platelet mean volume (Bld) [Entitic vol] 9.1 fL Normal 6.2-12.0 [facility] Comment on above: Performed By: #### L 100.0500, L500.2500 #### [facility] [address] [place], [address] Platelets (Bld) [#/Vol] 249 10*3/uL Normal 150-450 [facility] Comment on above: Performed By: #### L 100.0500, L500.2500 #### [facility] [address] [place], [address] RBC (Bld) [#/Vol] 3.97 10*6/uL Low 4.6-6.2 [facility] Comment on above: Performed By: #### L 100.0500, L500.2500 #### [facility] [address] [place], [address] RDW SD 44.6 fl High 35.1-43.9 [facility] Comment on above: Performed By: #### L 100.0500, L500.2500 #### [facility] [address] [place], [address] WBC (Bld) [#/Vol] 13.3 10*3/uL High 4.4-11.0 [facility] Comment on above: Performed By: #### L 100.0500, L500.2500 #### [facility] [address] [place], [address] CO2 (BldV) [Moles/Vol]Ordere d By: Maira Yeh on 02-28-2025 CO2 [Moles/Vol] 27 mmol/L 23-33 [facility] CTA Chest W/WO Contraston CTA Chest W/WO Contrast [facility] Imaging Services [address] [place] [address] CTA Chest W/WO Contrast MR#: [id number] Acct: [id number] Name: ELIS BILLS Rep #: [id number] : 1960 M 64 From: John Nicole MD PCP: Anna Sanders PA-C Status: ADM IN Study: CTA Chest W/WO Contrast Date of Exam: 02/28/25 Exam# [id number] Ordering Dr: Maira Yeh MD PROCEDURE: CTA [...] to significant respiratory motion artifact. Reading Location: [facility] CC: STEVE Sanders; Dr. Maira Yeh MD Financial Aid Administrator: Signed Normal [facility] Chest 1 View (Portable)on Chest 1 View (Portable) [facility] Imaging Services [address] [place] [address] Chest 1 View (Portable) MR#: [id number] Acct: [id number] Name: ELIS BILLS Rep #: [id number] : 1960 M 64 From: Willy Arellano MD PCP: Anna Sanders PA-C Status: ADM IN Study: Chest 1 View (Portable) Date of Exam: 02/28/25 Exam# [id number] Ordering Dr: Mechelle Maya DO PROCEDURE: CHEST 1 VIEW (PORTABLE) 02/28/2025 REASON FOR EXAM: TACHYPNEA TECHNIQUE: Frontal view of the chest. COMPARISON: 02/26/2025 FINDINGS: Lordotic position. Normal heart size. Prominent left-sided fat pad. Persistent right medial basilar opacity possible consolidation. No effusion or pneumothorax. RAD/Chest 1 View (Portable) IMPRESSION: Persistent right medial basal airspace disease, possible pneumonia. Reading Location: [place] [address] CC: STEVE Sanders; Dr. Mechelle Maya DO Financial Aid Administrator: Signed Normal [facility] Consultation - Intensiviston 02-28-2025 Consultation - Water Operator [facility] Medical Records Department [address] [place] [address] Consultation - Water Operator 02/28/25 1415 MR#: [id number] Acct: [id number] Name: ELIS BILLS Rep #: [id number] : 1960 64 From: Gamal Calero MD [...] withdrawal. ROS: Unable to obtain d/t AMS [facility] Medical History Hyperlipemia Hypertension GERD (gastroesophageal reflux [...] 02/28/25 10:59 (more content not included)... Normal [facility] D-Dimer Quantitative (DVT/PE )on 02-28-2025 D-DIMER QUANT 2.78 FEU/ug/m Invalid Interpretation Code 0.27-0.49 [facility] Comment on above: Result Comment: D-Di ida ELEVATED (>0.49): Additional studies and clinical assessments are indicated to conclude diagnosis of: Deep Vein Thrombosis (DVT) or Pulmonary Embolism (PE) CRITICAL VALUE CALLED TO MAKEDA TAPIA (ED) 02/28/251818 Radha Jiménez. RESULTS READ BACK BY SAME. CRITICAL VALUE CALLED TO CHRISTIN PALAFOX (ICU) 02/28/251825 Radha Jiménez. RESULTS READ BACK BY SAME. AMENDED REPORT 02/28/251826 D-DIMER QUANT previously reported as: 2.78 *H FEU/ug/m D-Dimer ELEVATED (>0.49): Additional studies and clinical assessments are indicated to conclude diagnosis of: Deep Vein Thrombosis (DVT) or Pulmonary Embolism (PE) CRITICAL VALUE CALLED TO MAKEDA TAPIA 02/28/25 1819 Radha Jessy. RESULTS READ BACK BY SAME. Performed By: #### L 100.0500, L500.2500 #### [facility] [address] [place], [address] Echo Complete W/ Contraston 02-28-2025 Echo Complete W/ Contrast [facility] Cardiovascular Services [address] [place] [address] Echo Complete W/ Contrast 02/28/25 1529 MR#: [id number] Acct: [id number] Name: ELIS BILLS Rep #: [id number] : 1960 64 From: Lavinia Kee MD [...] Gamal Calero Performed By: Mukesh Mejias RCS 02/28/25 1635 Date Lavinia Kee MD CC: STEVE Sanders; Dr. Maira Yeh MD; Dr. Gamal Calero MD Date Dictated: 02/28/251528 Date Transcribed: 02/28/251634 Financial Aid Administrator: Signed Normal [facility] Echocardiogram study reportO rdered By: Lavinia Kee on 02-28-2025 Study report [facility] [address] [place] [address] Echo Complete W/ Contrast 02/28/25 152 MR#: [id number] Acct: [id number] Name: ELIS BILLS Rep #:[id number] : 1960 64 From: Lavinia Richard Attending Dr: Dr. Maira Yeh MD Status: ADM IN Ordering Dr: Gamal Calero MD Date: Location: ICU Sex: Socorro C Admitted: 02/27/25 Reason For Study Reason [...] Gamal Calero Performed By: Mukesh Mejias RCS 02/28/25 163 Date _ Lavinia Kee MD CC: STEVE Sanders; Dr. Maira Yeh MD; Dr. Gamal Calero MD ~ Date Dictated: 02/28/25 1529 Date Transcribed: 02/28/251634 Financial Aid Administrator: Signed [facility] L501.4021on 02-28-2025 Trop T High Sen 48 ng/L High <=22 [facility] Comment on above: Performed By: #### L 100.0500, L500.2500 #### [facility] [address] [place], [address] Lactic Acidon 02-28-2025 Lactate [Moles/Vol] 1.1 mmol/L Normal 0.0-2.0 [facility] Comment on above: Order Comment: Y Performed By: #### L 100.0500, L500.2500 #### [facility] [address] [place], [address] Lactic acid measurementOrder ed By: Mechelle Guerra on 02-28-2025 Lactate [Moles/Vol] 1.1 mmol/L 0.0-2.0 [facility] Legionella Antigen Urineon 0 02-28-2025 LEGU Legionella Antigen result interpretation: L pneumo Ag Ur Ql Negative Presumptive negative for Legionella pneumophila serogroup 1 antigen in urine, suggesting no recent or current infection. Legionella Ag, Urine Negative (See interpretation below) Normal [facility] Comment on above: Performed By: #### M 300.4600, M300.4500 ####[facility] [address] [place], [address] Lipase measurementOrdered By : Gamal Calero on 02-28-2025 Lipase [Catalytic activity/Vol] 22 U/L Normal 13-75 [facility] Comment on above: Please note:LIPASE r [...] Performed By: #### L 100.0500, L500.2500 #### [facility] [address] [place], [address] M100.019on 02-28-2025 M100.019 Negative Normal [facility] Comment on above: Performed By: #### M 100.019 ####[facility] [address] [place], [address] M8200.1000on 02-28-2025 M8200.1000 Normal Reference Range = Negative MRSA DNA Nose Ql YADIRA+probe GeneXpert Instrument, PCR method MRSA PCR MRSA NEGATIVE Normal [facility] Comment on above: Performed By: #### M 8200.1000 ####[facility] [address] [place], [address] Magnesiumon 02-28-2025 Magnesium [Mass/Vol] 2.2 mg/dL Normal 1.5-2.2 [facility] Comment on above: Performed By: #### L 503.7505, L501.5200, L501.2300 #### [facility] [address] [place], [address] Magnesium measurement (mass/ volume)Ordered By: Mechelle Guerra on 02-28-2025 Magnesium (Unsp spec) [Mass/Vol] 2.2 mg/dL 1.5-2.2 [facility] Nasal methicillin resistant Staphylococcus aureus (MRSA) DNA detection by PCROrdered By: Gamal Calero on 02-28-2025 MRSA DNA YADIRA+probe Ql (Nose) [facility] No Panel InformationOrdered By: Maira Yeh on 02-28-2025 Blood Gas Liter Flow 5.0 [facility] Venous Blood pH (Temp Corrected) 7.37 7.32-7.42 [facility] Phosphoruson 02-28-2025 Phosphate [Mass/Vol] 3.3 mg/dL Normal 2.7-4.5 [facility] Comment on above: Performed By: #### L 503.7505, L501.5200, L501.2300 #### [facility] [address] [place], [address] Pro- Brain NATRIURETIC PEPTI Pb 02-28-2025 Natriuretic peptide B (Bld) [Mass/Vol] 1621 pg/mL High <=900 [facility] Comment on above: Result Comment: Hear t Failure Unlikely: < 300 pg/mL Heart Failure Likely < 50 Years: > 450 pg/mL 50-75 Years: > 900 pg/mL >75 Years: > 1800 pg/mL Performed By: #### L 503.7505, L501.5200, L501.2300 #### [facility] [address] [place], [address] [id number] By: Gamal Calero on 02-28-2025 SARS-CoV-2 (COVID-19) RNA YADIRA+probe Ql (Unsp spec) [facility] Strep pneumoniae Antig(UR,CS F)on 02-28-2025 STPAG URINE INTERPRETATION Strep pneumoniae Antig(UR,CSF) Strep pneumoniae Antig(UR,CSF) Negative Urine Presumptive negative for pneumococcal pneumonia, suggesting no current or recent pneumococcal infection. Infection due to S pneumoniae cannot be ruled out since the antigen present in the sample may be below the detection limit of the test. Strep pneumo Test Negative URINE (See interpretation below) Normal [facility] Comment on above: Performed By: #### M 300.4600, M300.4500 ####[facility] [address] [place], [address] Troponin T HS 2 HRon 025 Trop T High Sen 52 ng/L High <=22 [facility] Comment on above: Performed By: #### L 100.0500, L500.2500 #### [facility] [address] [place], [address] Troponin T HS 4 HRon 025 Trop T High Sen 41 ng/L High <=22 [facility] Comment on above: Result Comment: UNLA BELED SPECIMEN RECEIVED. JOEL CHAUDHARY NOTIFIED FOR RECOLLECT Performed By: #### L 499.0043 #### [facility] [address] [place], [address] Troponin T.cardiac [Mass/vol ume] in Serum or Plasma by High sensitivity methodOrdered By: Mechelle Guerra on 02-28-2025 Troponin T.cardiac High sensitivity method [Mass/Vol] 41 ng/L High <22 [facility] Troponin T.cardiac High sensitivity method [Mass/Vol] 52 ng/L High <22 [facility] Troponin T.cardiac High sensitivity method [Mass/Vol] 48 ng/L High <22 [facility] Comment on above: Delta: 53 on Urine Legionella pneumophila antigen detectionOrdered By: Gamal Calero on 02-28-2025 L. pneumophila Ag Ql (U) [facility] Vancomycin, Trough Levelon 0 02-28-2025 VANCO, TROUGH 14.7 ug/mL Normal 5.0-15.0 [facility] Comment on above: Order Comment: Comme nts: Trough to be drawn 30 mins prior to scheduled [id number] Result Comment: Alexandro mmended goal trough ranges [...] (Ventilator/Healtcare Associated) -Sepsis PLEASE CONTACT PHARMACY SERVICES (#[id number]) FOR INTERPRETATION OF RESULTS. Performed By: #### L 100.0500, L500.2500 #### [facility] [address] [place], [place], [address] Venous Blood Gason 5 Comment PT TEMP 40 DEGREES C Normal [facility] Comment on above: Order Comment: Resul ts entered by Rosmery and verified by Karina 02-28-25at 0705. Performed By: #### L 503.7505, L501.5200, L501.2300 #### [facility] [address] [place], [address] CO2 [Moles/Vol] 27 mmol/L Normal 23-33 [facility] Comment on above: Order Comment: Resul ts entered by [facility] and verified by sliceX 02-28-25 07. Performed By: #### L 503.7505, L501.5200, L501.2300 #### [facility] [address] [place], [address] HCO3 (Bld) [Moles/Vol] 26 mmol/L Normal 22-26 [facility] Comment on above: Order Comment: Resul ts entered by [facility] and verified by sliceX 02-28-25704. Performed By: #### L 503.7505, L501.5200, L501.2300 #### [facility] [address] [place], [address] VBG BE 2 mmol/L Normal -1.0-3.5 [facility] Comment on above: Order Comment: Resul ts entered by [facility] and verified by sliceX 02-28-25704. Performed By: #### L 503.7505, L501.5200, L501.2300 #### [facility] [address] [place], [address] VBG pCO2 40.5 mmHg Low 41-51 [facility] Comment on above: Order Comment: Resul ts entered by [facility] and verified by sliceX 02-28-25 07. Performed By: #### L 503.7505, L501.5200, L501.2300 #### [facility] [address] [place], [address] VBG pCO2 PT TEM 46.2 mmHg Normal 41-51 [facility] Comment on above: Order Comment: Resul ts entered by [facility] and verified by sliceX 02-28-25704. Performed By: #### L 503.7505, L501.5200, L501.2300 #### [facility] [address] [place], [address] VBG pH 7.42 Normal 7.32-7.42 [facility] Comment on above: Order Comment: Resul ts entered by [facility] and verified by [employer] 02-28-25 07. Performed By: #### L 503.7505, L501.5200, L501.2300 #### [facility] [address] [place], [address] VBG pH(T) 7.37 Normal 7.32-7.42 [facility] Comment on above: Order Comment: Resul ts entered by [facility] and verified by [facility] 02-28-25 07. Performed By: #### L 503.7505, L501.5200, L501.2300 #### [facility] [address] [place], [address] VBG PO2 25 mmHg Normal 25-40 [facility] Comment on above: Order Comment: Resul ts entered by [facility] and [facility] 02-28-25 07. Performed By: #### L 503.7505, L501.5200, L501.2300 #### [facility] [address] [place], [address] VBG PO2 PT TEM 30.4 Normal 25-40 [facility] Comment on above: Order Comment: Resul ts entered by [facility] and verified by [facility] 02-28-25 07. Performed By: #### L 503.7505, L501.5200, L501.2300 #### [facility] [address] [place], [address] VBG SO2 45 Low 50-70 [facility] Comment on above: Order Comment: Resul ts entered by [facility] and verified by [facility] 02-28-25 07. Performed By: #### L 503.7505, L501.5200, L501.2300 #### [facility] [address] [place], [address] Blood Gas Type SERGIO Normal [facility] Comment on above: Order Comment: Resul ts entered by [employer] and verified by sliceX 02-28-25at 07. Performed By: #### L 503.7505, L501.5200, L501.2300 #### [facility] [address] [place], [address] LPM 5.0 Normal [facility] Comment on above: Order Comment: Resul ts entered by Rosmery and verified by sliceX 02-28-25 07. Performed By: #### L 503.7505, L501.5200, L501.2300 #### [facility] [address] [place], [address] O2 Delivery Dev Nasal Can Normal [facility] Comment on above: Order Comment: Resul ts entered by Rosmery and verified by sliceX 02-28-25at 07. Performed By: #### L 503.7505, L501.5200, L501.2300 #### [facility] [address] [place], [address] SITE R BRACHIAL Normal [facility] Comment on above: Order Comment: Resul ts entered by Rosmery and verified by sliceX 02-28-25at 07. Performed By: #### L 503.7505, L501.5200, L501.2300 #### [facility] [address] [place], [address] Venous blood ammonia measure mentOrdered By: Gamal Calero on 02-28-2025 Ammonia (P) [Moles/Vol] 19.7 umol/L Normal 16-60 [facility] Comment on above: Performed By: #### L 100.0500, L500.2500 #### [facility] [address] [place], [address] Venous blood base excess josy surementOrdered By: Maira Yeh on 02-28-2025 Base excess Calc (BldV) [Moles/Vol] 2 mmol/L -1.0-3.5 [facility] Venous blood bicarbonate josy surementOrdered By: Maira Yeh on 02-28-2025 HCO3 (Bld) [Moles/Vol] 26 mmol/L 22-26 [facility] Venous blood oxygen saturati on measurementOrdered By: Maira Yeh on 02-28-2025 Oxygen saturation in Blood 45 % Low 50-70 [facility] Venous blood pH measurementO rdered By: Maira Yeh on 02-28-2025 pH (BldV) 7.42 [pH] 7.32-7.42 [facility] Venous blood partial pressur e of carbon dioxide measurementOrdered By: Maira Yeh on 02-28-2025 CO2 (BldV) [Partial pressure] 40.5 mm[Hg] Low 41-51 [facility] Venous blood partial pressur e of oxygen measurementOrdered By: Maira Yeh on 02-28-2025 Oxygen (BldV) [Partial pressure] 25 mm[Hg] 25-40 [facility] Venous blood partial pressur e of oxygen measurement adjusted to patient's actual tempOrdered By: Maira Yeh on 02-28-2025 Oxygen adjusted to patient's actual temperature (BldV) [Partial pressure] 30.4 25-40 [facility] Abdomen/Pelvis W IV Cont ONL Yon 02-27-2025 Abdomen/Pelvis W IV Cont ONLY [facility] Imaging Services [address] [place] [id number] Abdomen/Pelvis W IV Cont ONLY MR#: [id number] Acct: [id number] Name: ELIS BILLS Rep #: [id number] : 1960 M 64 From: Willy Arellano MD PCP: Anna Sanders PA-C Status: ADM IN Study: Abdomen/Pelvis W IV Cont ONLY Date of Exam: Exam# [id number] Ordering Dr: Austin Perez DO PROCEDURE: ABDOMEN/PELVIS [...] CT report for additional detail. Reading Location: [place] [address] CC: STEVE Sanders; Dr. Austin Perez, Financial Aid Administrator: Signed Normal [facility] Alcohol, Blood (Medical)-Ser umon 02-27-2025 SERUM ETOH < 10.1 Normal <=10.0 [facility] Comment on above: Result Comment: This test is for medical purposes only. The legal definition of intoxication varies according to local law. Performed By: #### L 100.0500, L500.2500 #### [facility] [address] [place], [address] Amphetamine detection with 1 000 ng/mL as cutoffOrdered By: Austin Perez on 02-27-2025 Amphetamines Screen method >1000 ng/mL Ql (U) Negative < 200 ng/mL [facility] Basic Metabolic Profile (BMP )on 02-27-2025 BUN/CRE 16.7 RATIO Normal 10-20 [facility] Comment on above: Performed By: #### M 100.638 #### [facility] [address] [place], [place], [address] Calcium [Mass/Vol] 8.5 mg/dL Normal 7.6-11.0 [facility] Comment on above: Performed By: #### M 100.638 #### [facility] [address] [place], [address] Chloride [Moles/Vol] 98 mmol/L Normal 98-108 [facility] Comment on above: Performed By: #### M 100.638 #### [facility] [address] [place], [address] CO2 [Moles/Vol] 19.8 mmol/L Low 21.0-32.0 [facility] Comment on above: Performed By: #### M 100.638 #### [facility] [address] [place], [address] Creatinine [Mass/Vol] 1.17 mg/dL Normal 0.70-1.20 [facility] Comment on above: Performed By: #### M 100.638 #### [facility] [address] [place], [address] ECRCL 80.36 ml/min Normal 50-250 [facility] Comment on above: Performed By: #### M 100.638 #### [facility] [address] [place], [address] GAP 13 Normal 5-15 [facility] Comment on above: Performed By: #### M 100.638 #### [facility] [address] [place], [address] GFR/1.73 sq M.predicted among non-blacks MDRD (S/P/Bld) [Vol rate/Area] 69 mL/min/{1.73_m2} Normal >60 [facility] Comment on above: Result Comment: mL/m in/1.73m2 CKD-EPI Creatinine Equation (2020) Performed By: #### M 100.638 #### [facility] [address] [place], [address] Glucose [Mass/Vol] 123 mg/dL High 70-99 [facility] Comment on above: Performed By: #### M 100.638 #### [facility] [address] [place], [address] Potassium [Moles/Vol] 4.1 mmol/L Normal 3.3-5.1 [facility] Comment on above: Performed By: #### M 100.638 #### [facility] [address] [place], [address] Sodium [Moles/Vol] 131 mmol/L Low 133-145 [facility] Comment on above: Performed By: #### M 100.638 #### [facility] [address] [place], [address] Urea nitrogen [Mass/Vol] 20 mg/dL High 4-19 [facility] Comment on above: Performed By: #### M 100.638 #### [facility] [address] [place], [address] Blood cultureOrdered By: Leonid Guerra on 02-27-2025 Bacteria identified Cx Nom (Bld) No growth in 5 days. [facility] Brain W/WO Contraston 2024 Brain W/WO Contrast [facility] Imaging Services [address] [place] [address] Brain W/WO Contrast MR#: [id number] Acct: [id number] Name: ELIS BILLS Rep #: [id number] : 1960 M 64 From: John Nicole MD PCP: Anna Sanders PA-C Status: ADM IN Study: Brain W/WO Contrast Date of Exam: 02/27/25 Exam# [id number] Ordering Dr: Maira Yeh MD PROCEDURE: MR [...] in the appropriate clinical setting. Reading Location: [facility] CC: STEVE Sanders; Dr. Maira Yeh MD Financial Aid Administrator: Signed Normal [facility] CBC W/Diff, Automatedon 02-16 PLT EST ADEQUATE Normal ADEQ [facility] Comment on above: Performed By: #### M 100638 #### [facility] [address] [place], [place], [address] SMEAR COMMENT SCANNED Normal [facility] Comment on above: Performed By: #### M 100638 #### [facility] [address] [place], [place], [address] Calculated very low density lipoprotein (VLDL) cholesterol measurementOrdered By: Mechelle Guerra on 02-27-2025 Calculated very low density lipoprotein (VLDL) cholesterol measurement 12 mg/dL 5-40 [facility] Chest without Contraston Chest without Contrast [facility] Imaging Services [address] [place] [address] Chest without Contrast MR#: [id number] Acct: [id number] Name: ELIS BILLS Rep #: [id number] : 1960 M 64 From: Willy Arellano MD PCP: Anna Sanders PA-C Status: ADM IN Study: Chest without Contrast Date of Exam: 02/27/25 Exam# [id number] Ordering Dr: Austin Perez DO PROCEDURE: CHEST [...] IMPRESSION: Right lower lobe pneumonia. Reading Location: [place] [address] CC: STEVE Sanders; Dr. Austin Perez DO Financial Aid Administrator: Signed Normal [facility] Electrocardiogram reportOrde red By: Singh Dickey on 02-27-2025 EKG study [facility] Cardiovascular Services [address] [place] [address] 12 Lead EKG 02/26/252108 MR#: [id number] Acct: [id number] Name: ELIS BILLS Rep #:[id number] : 1960 64 From: Singh nevarez MD [...] block Abnormal ECG Confirmed by Singh Dickey ([id number]), legal editor LARRY GIBSON ([id number]) on 02/27/2025 11:44:59 AM Referred By: Confirmed By: Singh Dickey 02/27/25 1145 Date _ Singh Dickey MD CC: STEVE Sanders; Dr. Maira Yeh MD; Dr. Austin Perez DO ~ Signed [facility] Other Folate [Mass/volume] in Seru m or PlasmaOrdered By: Mechelle Guerra on 02-27-2025 Folate [Mass/Vol] 30.40 ng/mL 4.60-34.80 [facility] Folates,Serum (Folic Acid)on 02-27-2025 FOLATES,SERUM 30.40 ng/mL Normal 4.60-34.80 [facility] Comment on above: Performed By: #### L 100.0500, L500.2500 #### [facility] [address] [place], [address] H AND P Exam - Hospitaliston 02-27-2025 H&P Exam - Hospitalist [facility] Medical Records Department [address] [place] [address] H P Exam - Hospitalist 02/27/25 0001 MR#: [id number] Acct: [id number] Name: ELIS BILLS Rep #: [id number] : 1960 64 From: Mechelle Maya DO [...] lumbar region (without claudication) who presents to [facility] ER complaining of altered mental status. [...] is expected to extend beyond 2 midnights. [facility] Medical History Hyperlipemia Hypertension GERD (gastroesophageal reflux [...] Temperature Source (more content not included)... Normal [facility] Hemoglobin A1con 02-27-2025 HbA1c (Bld) [Mass fraction] 5.5 % Normal <=5.6 [facility] Comment on above: Result Comment: Norm al < 5.7 % Prediabetic 5.7 - 6.4 % Diabetic >or= 6.5 % Please note range changes. Performed By: #### M 100.638 #### [facility] [address] [place], [place], [address] Hemoglobin A1c percentageOrd ered By: Mechelle Guerra on 02-27-2025 HbA1c (Bld) [Mass fraction] 5.5 % <5.7 [facility] Comment on above: Normal < 5.7 % Predi abetic 5.7 - 6.4 % Diabetic >or= 6.5 % Please note range changes. LDL calc ser/plasOrdered By: Mechelle Guerra on 02-27-2025 Cholesterol in LDL [Mass/Vol] 32 mg/dL [facility] Lipid Profileon 02-27-2025 Cholesterol in LDL [Mass/Vol] 32 mg/dL Normal [facility] Comment on above: Performed By: #### M 100.638 #### [facility] [address] [place], [place], [address] CHOL:HDL 1.95 Normal [facility] Comment on above: Performed By: #### M 100.638 #### [facility] [address] [place], [place], [address] Cholesterol [Mass/Vol] 88 mg/dL Normal <=200 [facility] Comment on above: Performed By: #### M 100.638 #### [facility] [address] [place], [address] Cholesterol in HDL [Mass/Vol] 45 mg/dL Normal [facility] Comment on above: Performed By: #### M 100.638 #### [facility] [address] [place], [address] Cholesterol in VLDL [Mass/Vol] 12 mg/dL Normal 5-40 [facility] Comment on above: Performed By: #### M 100.638 #### [facility] [address] [place], [address] Triglyceride [Mass/Vol] 59 mg/dL Normal [facility] Comment on above: Result Comment: The drugs N-Acetylcysteine and Metamizole may falsely depress this assay. Performed By: #### M 100.638 #### [facility] [address] [place], [address] TRIG Normal [facility] Comment on above: Result Comment: MOVE D TO DIFFERENT REQ The drugs N-Acetylcysteine and Metamizole may falsely depress this assay. Performed By: #### L 100.0500, L500.2500 #### [facility] [address] [place], [address] CHOL Normal <=200 [facility] Comment on above: Result Comment: MOVE D TO DIFFERENT REQ Performed By: #### L 100.0500, L500.2500 #### [facility] [address] [place], [address] CHOL:HDL Normal [facility] Comment on above: Result Comment: MOVE D TO DIFFERENT REQ Performed By: #### L 100.0500, L500.2500 #### [facility] [address] [place], [address] CLDL Normal [facility] Comment on above: Result Comment: MOVE D TO DIFFERENT REQ Performed By: #### L 100.0500, L500.2500 #### [facility] [address] [place], [address] HDL Normal [facility] Comment on above: Result Comment: MOVE D TO DIFFERENT REQ Performed By: #### L 100.0500, L500.2500 #### [facility] [address] [place], [address] VLDL Normal 5-40 [facility] Comment on above: Result Comment: MOVE D TO DIFFERENT REQ Performed By: #### L 100.0500, L500.2500 #### [facility] [address] [place], [address] Magnetic resonance imaging r eportOrdered By: John Nicole on 02-27-2025 Study report [facility] Imaging Services [address] [place] [address] Brain W/WO Contrast MR#: [id number] Acct: [id number] Name: ELIS BILLS Rep #: [id number] : 1960 M 64 From: Cruz Nicole MD PCP: Anna Sanders PA-C Status: ADM IN Study:Brain W/WO Contrast Date of Exam: 02/27/25 Exam# [id number] Ordering Dr: Nimisha Yeh MD PROCEDURE: MR [...] in the appropriate clinical setting. Reading Location: [id number] CC: STEVE Sanders; Dr. Maira Yeh MD ~ Financial Aid Administrator: Signed [facility] No Panel InformationOrdered By: Austin Perez on 02-27-2025 Urine Buprenorphine Qualitative Negative < 200 ng/mL [facility] Urine Oxycodone Screen Negative < 100 ng/mL [facility] Osmolality urOrdered By: Leonid Guerra on 02-27-2025 Osmolality (U) [Osmolality] 628 mOsm/KG >50 [facility] Comment on above: Normal Urine Referen ce Ranges Random: 50 - 1200 mOsm/kg H20 depending on fluid intake Random: >850 mOsm/kg after 12 hour fluid restriction 24 hour: ~300 - 900 mOsm/kg H2O Osmolality, Serumon 02-28-20 25 OSMOLALITY,SER 288 mOsm/KG Normal 280-301 [facility] Comment on above: Performed By: #### M 100.638 #### [facility] [address] [facility] [place], [address] Osmolality, Urineon 02-28-20 25 OSMOLALITY,UR 628 mOsm/KG Normal [facility] Comment on above: Result Comment: Normal Urine Reference Ranges Random: 50 - 1200 mOsm/kg H20 depending on fluid intake Random: >850 mOsm/kg after 12 hour fluid restriction 24 hour: 300 - 900 mOsm/kg H2O Performed By: #### L 503.7505, L501.5200, L501.2300 #### [facility] [address] [facility]. [place], [place], [address] Quantitative urine opiates m easurementOrdered By: Austin Perez on 02-27-2025 Opiates Ql (U) Negative < 300 ng/mL [facility] RESPIRATORY PANEL MOLECULARo n 02-27-2025 RP PANEL ADENOVIRUS Not Detected INFLUENZA A Not Detected INFLUENZA A (SUBTYPE H1) Not Detected INFLUENZA A (SUBTYPE H3) Not Detected INFLUENZA B Not Detected HUMAN METAPHNEUMO Not Detected PARAINFLUENZA 1 Not Detected PARAINFLUENZA 2 Not Detected PARAINFLUENZA 3 Not Detected PARAINFLUENZA 4 Not Detected RHINOVIRUS Not Detected RSV A Not Detected RSV B Not Detected Normal [facility] Comment on above: Performed By: #### M 100.638 #### [facility] [address] [place], [place], [address] Respiratory pathogens detect ion panel by molecular detection methodOrdered By: Mechelle Guerra on 02-27-2025 Respiratory pathogens DNA and RNA panel YADIRA+probe (Resp) [facility] Screening total cholesterol/ high density lipoprotein (HDL) cholesterol ratioOrdered By: Mechelle Guerra on 02-27-2025 Cholesterol.total/Carmen sterol in HDL [Mass ratio] 1.95 {ratio} [facility] Screening urine fentanyl josy surementOrdered By: Austin Perez on 02-27-2025 fentaNYL Screen Ql (U) Negative [facility] Serum or plasma cholesterol in HDL measurement (mass/volume)Ordered By: Mechelle Guerra on 02-27-2025 Cholesterol in HDL [Mass/Vol] 45 mg/dL >40 [facility] Serum or plasma cholesterol measurement (mass/volume)Ordered By: Mechelle Guerra on 02-27-2025 Cholesterol [Mass/Vol] 88 mg/dL <201 [facility] Serum or plasma ethanol sidra urement (mass/volume)Ordered By: Austin Perez on 02-27-2025 Ethanol [Mass/Vol] mg/dL <10.1 [facility] Comment on above: This test is for med ical purposes only. The legal definition of intoxication varies according to local law. TSH DL <= 0.005 mIU/L QnOrde red By: Mechelle Guerra on 02-27-2025 TSH Qn 1.110 uIU/mL 0.300-4.200 [facility] Thyroid Stim Hormone (TSH)on 02-27-2025 TSH 1.110 uIU/mL Normal 0.300-4.200 [facility] Comment on above: Performed By: #### M 100.638 #### [facility] [address] [place], [address] Triglycerides measurementOrd ered By: Mechelle Guerra on 02-27-2025 Triglyceride [Mass/Vol] 59 mg/dL <199 [facility] Comment on above: The drugs N-Acetylcy steine and Metamizole may falsely depress this assay. Troponin T HS 4 HRon 025 Trop T High Sen 45 ng/L High <=22 [facility] Comment on above: Performed By: #### L 100.0500, L500.2500 #### [facility] [address] [place], [address] Urine Drug Screen (VISTA)on 02-27-2025 AMPHETAMINES Negative Normal <1000 ng/mL [facility] Comment on above: Performed By: #### L 100.0500, L500.2500 #### [facility] [address] [place], [address] BARBITIURATES Negative Normal < 200 ng/mL [facility] Comment on above: Performed By: #### L 100.0500, L500.2500 #### [facility] [address] [place], [address] BENZODIAZIPINE Negative Normal < 200 ng/mL [facility] Comment on above: Performed By: #### L 100.0500, L500.2500 #### [facility] [address] [place], [address] BUP Ur Drug Scr Negative Normal < 200 ng/mL [facility] Comment on above: Performed By: #### L 100.0500, L500.2500 #### [facility] [address] [place], [address] COCAINE Negative Normal < 300 ng/mL [facility] Comment on above: Performed By: #### L 100.0500, L500.2500 #### [facility] [address] [place], [address] Fentanyl Negative Normal [facility] Comment on above: Performed By: #### L 100.0500, L500.2500 #### [facility] [address] [place], [address] METHADONE Negative Normal < 300 ng/mL [facility] Comment on above: Performed By: #### L 100.0500, L500.2500 #### [facility] [address] [place], [address] OPIATES Negative Normal < 300 ng/mL [facility] Comment on above: Performed By: #### L 100.0500, L500.2500 #### [facility] [address] [place], [address] OXYCODONE Negative Normal < 100 ng/mL [facility] Comment on above: Performed By: #### L 100.0500, L500.2500 #### [facility] [address] [place], [address] PCP Negative Normal < 25 ng/mL [facility] Comment on above: Performed By: #### L 100.0500, L500.2500 #### [facility] [address] [place], [address] THC Negative Normal < 50 ng/mL [facility] Comment on above: Performed By: #### L 100.0500, L500.2500 #### [facility] [address] [place], [address] Urine benzodiazepine levelOr dered By: Austin Perez on 02-27-2025 Benzodiazepines Ql (U) Negative < 200 ng/mL [facility] Urine cocaine levelOrdered B y: Austin Perez on 02-27-2025 Cocaine Ql (U) Negative < 300 ng/mL [facility] Urine srala-5-tfwyjaikoiiejf abinol (THC) measurementOrdered By: Austin Perez on 02-27-2025 Cannabinoids Screen Ql (U) Negative < 50 ng/mL [facility] Urine phencyclidine (PCP) de tectionOrdered By: Austin Perez on 02-27-2025 Phencyclidine Ql (U) Negative < 25 ng/mL [facility] Vitamin B12on 02-27-2025 Cobalamin (Vitamin B12) [Mass/Vol] 229 pg/mL Normal 180-914 [facility] Comment on above: Performed By: #### M 100.638 #### [facility] [address] [place], [address] Vitamin B12 ser/plasOrdered By: Mcehelle Guerra on 02-27-2025 Cobalamin (Vitamin B12) [Mass/Vol] 229 pg/mL 180-914 [facility] 12 Lead EKGon 02-26-2025 12 Lead EKG [facility] Cardiovascular Services [address] [place] [address] 12 Lead EKG 02/26/25 2109 MR#: [id number] Acct: [id number] Name: ELIS BILLS Rep #: [id number] : 1960 64 From: Singh Dickey MD [...] block Abnormal ECG Confirmed by Singh Dickey ([id number]), legal editor LARRY GIBSON ([id number]) on 02/27/2025 11:44:59 AM Referred By: Confirmed By: Singh Dickey 02/27/25 1145 Date Singh Dickey MD CC: STEVE Sanders; Dr. Maira Yeh MD; Dr. Austin Perez DO Signed Normal [facility] Absolute lymphocyte countOrd ered By: Austin Perez on 02-26-2025 Lymphocytes Auto (Unsp spec) [#/Vol] 0.68 10*3/uL Low 0.83-4.51 [facility] Absolute neutrophil countOrd ered By: Austin Perez on 02-26-2025 Neutrophils (Bld) [#/Vol] 15.2 10*3/uL High 2.0-7.7 [facility] Activated partial thrombopla stin time (aPTT) in platelet poor plasma by coagulation aOrdered By: Austin Perez on 02-26-2025 aPTT Coag (PPP) [Time] 34.5 s 24.1-36.2 [facility] Anion gap in Serum or Plasma Ordered By: Austin Perez on 02-26-2025 Anion gap [Moles/Vol] 18 mmol/L High 5-15 [facility] Automated lymphocyte count a s percentage of total leukocytesOrdered By: Austin Perez on 02-26-2025 Lymphocytes/100 WBC Auto (Unsp spec) 3.9 % Low 19-41 [facility] BUN/creatinine ratioOrdered By: Austin Perez on 02-26-2025 Urea nitrogen/Creatinine [Mass ratio] 13.5 mg/mg 10-20 [facility] Basophil percentageOrdered B y: Austin Perez on 02-26-2025 Basophils/100 WBC (Bld) 0.5 % 0-1 [facility] Bilirubin Test strip Ql (U)O rdered By: Austin Perez on 02-26-2025 Bilirubin Ql (U) Negative Negative [facility] Bilirubin, totalOrdered By: Austin Perez on 02-26-2025 Bilirubin [Mass/Vol] 0.88 mg/dL 0.00-1.[address] [facility] Blood cultureOrdered By: Jovan Perez on 02-26-2025 Bacteria identified Cx Nom (Bld) No growth in 5 days. [facility] Bacteria identified Cx Nom (Bld) No growth in 5 days. [facility] Brain/Head without Contrasto n 02-26-2025 Brain/Head without Contrast [facility] Imaging Services [address] [place] [address] Brain/Head without Contrast MR#: [id number] Acct: [id number] Name: ELIS BILLS Rep #: [id number] : 1960 M 64 From: Antonio Roman MD PCP: Anna Sanders PA-C Status: [facility] ER Study: Brain/Head without Contrast Date of Exam: 02/16 08/12 Exam# [id number] Ordering Dr: Austin Perez DO EXAM: CT [...] evaluation with MRI is recommended. Reading Location: [facility] CC: STEVE Sanders; Dr. Austin Perez DO Financial Aid Administrator: Signed Normal [facility] CBC W/Diff, Automatedon 02-16 Absolute Lymph 0.68 X10 3/uL Low 0.83-4.51 [facility] Comment on above: Performed By: #### L 503.7505, L501.5200, L501.2300 #### [facility] [address] [place], [address] Absolute Neut 15.2 X10 3/uL High 2.0-7.7 [facility] Comment on above: Performed By: #### L 503.7505, L501.5200, L501.2300 #### [facility] [address] [place], [address] Basophils/100 WBC (Bld) 0.5 % Normal 0-1 [facility] Comment on above: Performed By: #### L 503.7505, L501.5200, L501.2300 #### [facility] [address] [place], [address] Eosinophils/100 WBC (Bld) 0.3 % Normal 0-5 [facility] Comment on above: Performed By: #### L 503.7505, L501.5200, L501.2300 #### [facility] [address] [place], [address] Erythrocyte distribution width (RBC) [Ratio] 13.4 % Normal 11.6-14.6 [facility] Comment on above: Performed By: #### L 503.7505, L501.5200, L501.2300 #### [facility] [address] [place], [address] Hematocrit (Bld) [Volume fraction] 37.2 % Low 40-54 [facility] Comment on above: Performed By: #### L 503.7505, L501.5200, L501.2300 #### [facility] [address] [place], [address] Hemoglobin (Bld) [Mass/Vol] 13.1 g/dL Normal 13.0-16.5 [facility] Comment on above: Performed By: #### L 503.7505, L501.5200, L501.2300 #### [facility] [address] [place], [address] IG% 0.700 Normal 0.0-0.9 [facility] Comment on above: Result Comment: IG% - Immature Granulocytes (promyelocytes, myelocytes and metamyelocytes) > 1% indicates that a LEFT SHIFT is Present. Performed By: #### L 503.7505, L501.5200, L501.2300 #### [facility] [address] [place], [address] Lymphocytes/100 WBC (Bld) 3.9 % Low 19-41 [facility] Comment on above: Performed By: #### L 503.7505, L501.5200, L501.2300 #### [facility] [address] [place], [address] MCH (RBC) [Entitic mass] 29.8 pg Normal 27.0-32.0 [facility] Comment on above: Performed By: #### L 503.7505, L501.5200, L501.2300 #### [facility] [address] [place], [address] MCHC (RBC) [Mass/Vol] 35.2 g/dL Normal 32-36 [facility] Comment on above: Performed By: #### L 503.7505, L501.5200, L501.2300 #### [facility] [address] [place], [address] MCV (RBC) [Entitic vol] 84.7 fL Normal 80-94 [facility] Comment on above: Performed By: #### L 503.7505, L501.5200, L501.2300 #### [facility] [address] [place], [address] Monocytes/100 WBC (Bld) 7.3 % Normal 0-10 [facility] Comment on above: Performed By: #### L 503.7505, L501.5200, L501.2300 #### [facility] [address] [place], [address] Neutrophils/100 WBC (Bld) 87.3 % High 47-70 [facility] Comment on above: Performed By: #### L 503.7505, L501.5200, L501.2300 #### [facility] [address] [place], [address] Nucleated RBC (Bld) [#/Vol] 0 10*3/uL Normal 0-5 [facility] Comment on above: Performed By: #### L 503.7505, L501.5200, L501.2300 #### [facility] [address] [place], [address] Platelet mean volume (Bld) [Entitic vol] 9.5 fL Normal 6.2-12.0 [facility] Comment on above: Performed By: #### L 503.7505, L501.5200, L501.2300 #### [facility] [address] [place], [address] Platelets (Bld) [#/Vol] 315 10*3/uL Normal 150-450 [facility] Comment on above: Performed By: #### L 503.7505, L501.5200, L501.2300 #### [facility] [address] [place], [address] RBC (Bld) [#/Vol] 4.39 10*6/uL Low 4.6-6.2 [facility] Comment on above: Performed By: #### L 503.7505, L501.5200, L501.2300 #### [facility] [address] [place], [address] RDW SD 42.0 fl Normal 35.1-43.9 [facility] Comment on above: Performed By: #### L 503.7505, L501.5200, L501.2300 #### [facility] [address] [place], [address] WBC (Bld) [#/Vol] 17.4 10*3/uL High 4.4-11.0 [facility] Comment on above: Performed By: #### L 503.7505, L501.5200, L501.2300 #### [facility] [address] [place], [address] CO2 (BldV) [Moles/Vol]Ordere d By: Austin Perez on 02-26-2025 CO2 [Moles/Vol] 25 mmol/L 23-33 [facility] Carbon dioxide, total [Moles /volume] in Central venous bloodOrdered By: Austin Perez on 02-26-2025 CO2 [Moles/Vol] 18.9 mmol/L Low 21.0-32.0 [facility] Chest PA and Lateralon 02-26 Chest PA and Lateral [facility] Imaging Services [address] [place] [address] Chest PA and Lateral MR#: [id number] Acct: [id number] Name: ELIS BILLS Rep #: [id number] : 1960 M 64 From: Antonio Roman MD PCP: Anna Sanders PA-C Status: [facility] ER Study: Chest PA and Lateral Date of Exam: 02/26/25 Exam# [id number] Ordering Dr: Austin Perez DO EXAM: XR Chest, 2 Views CLINICAL INDICATION: AMS TECHNIQUE: Frontal and lateral views of the chest. COMPARISON: No relevant prior studies available. FINDINGS: LUNGS AND PLEURAL SPACES: See below. HEART: Cardiomegaly with mild congestion. MEDIASTINUM: Unremarkable. Normal mediastinal contour. BONES/JOINTS: Unremarkable. No acute fracture. RAD/Chest PA and Lateral IMPRESSION: Cardiomegaly with mild congestion. Reading Location: [facility] CC: STEVE Sanders; Dr. Austin Perez, Financial Aid Administrator: Signed Normal [facility] Chloride assayOrdered By: Minh Perez on 02-26-2025 Chloride [Moles/Vol] 90 mmol/L Low 98-108 [facility] Comprehensive Metabolic Prof ilon 02-26-2025 Albumin [Mass/Vol] 4.1 g/dL Normal 3.4-4.8 [facility] Comment on above: Performed By: #### L 503.7505, L501.5200, L501.2300 #### [facility] [address] [place], [address] Albumin/Globulin [Mass ratio] 1.1 {ratio} Normal 0.9-2.4 [facility] Comment on above: Performed By: #### L 503.7505, L501.5200, L501.2300 #### [facility] [address] [place], [address] ALK PHOS 110 U/L Normal 40-129 [facility] Comment on above: Performed By: #### L 503.7505, L501.5200, L501.2300 #### [facility] [address] [place], [address] ALT [Catalytic activity/Vol] 18 U/L Normal <=46 [facility] Comment on above: Performed By: #### L 503.7505, L501.5200, L501.2300 #### [facility] [address] [place], [address] AST [Catalytic activity/Vol] 42 U/L High <=37 [facility] Comment on above: Performed By: #### L 503.7505, L501.5200, L501.2300 #### [facility] [address] [place], [address] Bilirubin [Mass/Vol] 0.88 mg/dL Normal 0.00-1.30 [facility] Comment on above: Performed By: #### L 503.7505, L501.5200, L501.2300 #### [facility] [address] [place], [address] BUN/CRE 13.5 RATIO Normal 10-20 [facility] Comment on above: Performed By: #### L 503.7505, L501.5200, L501.2300 #### [facility] [address] [place], [address] Calcium [Mass/Vol] 9.3 mg/dL Normal 7.6-11.0 [facility] Comment on above: Performed By: #### L 503.7505, L501.5200, L501.2300 #### [facility] [address] [place], [address] Chloride [Moles/Vol] 90 mmol/L Low 98-108 [facility] Comment on above: Performed By: #### L 503.7505, L501.5200, L501.2300 #### [facility] [address] [place], [address] CO2 [Moles/Vol] 18.9 mmol/L Low 21.0-32.0 [facility] Comment on above: Performed By: #### L 503.7505, L501.5200, L501.2300 #### [facility] [address] [place], [address] Creatinine [Mass/Vol] 1.19 mg/dL Normal 0.70-1.20 [facility] Comment on above: Performed By: #### L 503.7505, L501.5200, L501.2300 #### [facility] [address] [place], [address] ECRCL 78.80 ml/min Normal 50-250 [facility] Comment on above: Performed By: #### L 503.7505, L501.5200, L501.2300 #### [facility] [address] [place], [address] GAP 18 High 5-15 [facility] Comment on above: Performed By: #### L 503.7505, L501.5200, L501.2300 #### [facility] [address] [place], [address] GFR/1.73 sq M.predicted among non-blacks MDRD (S/P/Bld) [Vol rate/Area] 68 mL/min/{1.73_m2} Normal >60 [facility] Comment on above: Result Comment: mL/m in/1.73m2 CKD-EPI Creatinine Equation (2020) Performed By: #### L 503.7505, L501.5200, L501.2300 #### [facility] [address] [place], [address] Globulin (S) [Mass/Vol] 3.8 g/dL Normal 2.2-4.2 [facility] Comment on above: Performed By: #### L 503.7505, L501.5200, L501.2300 #### [facility] [address] [place], [address] Glucose [Mass/Vol] 111 mg/dL High 70-99 [facility] Comment on above: Performed By: #### L 503.7505, L501.5200, L501.2300 #### [facility] [address] [place], [address] Potassium [Moles/Vol] 4.0 mmol/L Normal 3.3-5.1 [facility] Comment on above: Result Comment: Hemo lysis present, Results??could be affected. ?? Hemolysis present, Results??could be affected. ?? Hemolysis present, Results??could be affected. ?? Performed By: #### L 503.7505, L501.5200, L501.2300 #### [facility] [address] [place], [address] Sodium [Moles/Vol] 126 mmol/L Low 133-145 [facility] Comment on above: Performed By: #### L 503.7505, L501.5200, L501.2300 #### [facility] [address] [place], [address] T PROT 7.9 g/dL Normal 5.9-8.4 [facility] Comment on above: Performed By: #### L 503.7505, L501.5200, L501.2300 #### [facility] [address] [place], [address] Urea nitrogen [Mass/Vol] 16 mg/dL Normal 4-19 [facility] Comment on above: Performed By: #### L 503.7505, L501.5200, L501.2300 #### [facility] [address] [place], [address] Emergency Department Summary on 02-26-2025 Emergency Department Summary [facility] Medical Records Department [address] [place] [address] Emergency Department Summary 02/26/25 MR#: [id number] Acct: [id number] Name: ELIS BILLS Rep #: [id number] : 1960 64 From: Austin Perez DO [...] management. They deny any blood thinning medications [facility] Medical History Hyperlipemia Hypertension GERD (gastroesophageal reflux [...] 94 Oxyg (more content not included)... Normal [facility] Eosinophil percentageOrdered By: Austin Perez on 02-26-2025 Eosinophils/100 WBC (Bld) 0.3 % 0-5 [facility] Erythrocyte distribution wid th ratioOrdered By: Austin Perez on 02-26-2025 Erythrocyte distribution width (RBC) [Ratio] 13.4 % 11.6-14.6 [facility] Erythrocyte distribution wid th standard deviationOrdered By: Austin Perez on 02-26-2025 Erythrocyte distribution width (RBC) [Ratio] 42.0 fl 35.1-43.9 [facility] Glomerular filtration rate ( GFR) estimation/1.73 sq m using serum, plasma, or whole bOrdered By: Austin Perez on 02-26-2025 GFR/1.73 sq M.predicted among non-blacks MDRD (S/P/Bld) [Vol rate/Area] 68 mL/min/{1.73_m2} >60 [facility] Comment on above: mL/min/1.73m2 CKD-EP I Creatinine Equation (2020) Hematocrit Auto (Bld) [Volum e fraction]Ordered By: Austin Perez on 02-26-2025 Hematocrit (Bld) [Volume fraction] 37.2 % Low 40-54 [facility] Hemoglobin measurementOrdere d By: Austin Perez on 02-26-2025 Hemoglobin (Bld) [Mass/Vol] 13.1 g/dL 13.0-16.5 [facility] Hyaline casts LM.LPF (Urine sed) [#/Area]Ordered By: Austin Perez on 02-26-2025 Hyaline casts (Urine sed) [#/Area] 5 /[LPF] 0-5 [facility] Immature granulocytes/100 WB C Auto (Bld)Ordered By: Austin Perez on 02-26-2025 Immature granulocytes/100 WBC (Bld) 0.700 % 0.0-0.9 [facility] Comment on above: IG% - Immature Granu locytes (promyelocytes, myelocytes and metamyelocytes) > 1% indicates that a LEFT SHIFT is Present. International normalized rat io (INR) calculationOrdered By: Austin Perez on 02-26-2025 INR Coag (Bld) [Relative time] 1.2 {INR} [facility] Ketones Test strip Ql (U)Ord ered By: Austin Perez on 02-26-2025 Ketones Ql (U) 5 mg/dl High Negative [facility] Knee 4 or More Viewson 02-26 Knee 4 or More Views [facility] Imaging Services [address] [place], [place] [address] Knee 4 or More Views MR#: [id number] Acct: [id number] Name: ELIS BILLS Rep #: [id number] : 1960 M 64 From: Antonio Roman MD PCP: Anna Sanders PA-C Status: REG ER Study: Knee 4 or More Views Date of Exam: 02/26/25 Exam# [id number] Ordering Dr: Austin Perez DO EXAM: XR [...] IMPRESSION: Degenerative changes as above. Reading Location: [facility] CC: STEVE Sanders; Dr. Austin Perez DO Financial Aid Administrator: Signed Normal [facility] L501.4021on 02-26-2025 Trop T High Sen 53 ng/L High <=22 [facility] Comment on above: Result Comment: Crit ical Result(s) Called at: 2227 by: KIP DUEÑAS TO ARIS REAL??Results read back by same. Performed By: #### L 503.7505, L501.5200, L501.2300 #### [facility] [address] [facility] [place], [address] Laboratory - Chemistry and C hemistry - challengeOrdered By: Austin Perez on 02-26-2025 AST [Catalytic activity/Vol] 42 U/L High <38 [facility] Lactic Acidon 02-26-2025 Lactate [Moles/Vol] mmol/L Normal 0.0-2.0 [facility] Comment on above: Order Comment: Y Performed By: #### L 503.7505, L501.5200, L501.2300 #### [facility] [address] [place], [address] Lactic acid measurementOrder ed By: Austin Perez on 02-26-2025 Lactate [Moles/Vol] mmol/L 0.0-2.0 [facility] MCV (mean corpuscular volume ) determinationOrdered By: Austin Perez on 02-26-2025 MCV (RBC) [Entitic vol] 84.7 fL 80-94 [facility] Mean corpuscular hemoglobin (MCH) determinationOrdered By: Austin Perez on 02-26-2025 MCH (RBC) [Entitic mass] 29.8 pg 27.0-32.0 [facility] Mean corpuscular hemoglobin concentration (MCHC) determinationOrdered By: Austin Perez on 02-26-2025 MCHC (RBC) [Mass/Vol] 35.2 g/dL 32-36 [facility] Mean platelet volume determi nationOrdered By: Austin Perez on 02-26-2025 Platelet mean volume (Bld) [Entitic vol] 9.5 fL 6.2-12.0 [facility] Microscopic analysis of urin e for red blood cells (RBC)Ordered By: Austin Perez on 02-26-2025 Microscopic analysis of urine for red blood cells (RBC) 0-5 SEEN /hpf 0-5 [facility] Monocyte percentageOrdered B y: Austin Perez on 02-26-2025 Monocytes/100 WBC (Bld) 7.3 % 0-10 [facility] Mucus LM Ql (Urine sed)Order ed By: Austin Perez on 02-26-2025 Mucus Ql (Urine sed) 0 SEEN /hpf [facility] Neutrophil percentageOrdered By: Austin Perez on 02-26-2025 Neutrophils/100 WBC (Bld) 87.3 % High 47-70 [facility] Nitrite Test strip Ql (U)Ord ered By: Austin Perez on 02-26-2025 Nitrite Ql (U) Negative Negative [facility] No Panel InformationOrdered By: Austin Perez on 02-26-2025 Blood Gas Sample Site Not entered [facility] Blood Gas Specimen Type SERGIO [facility] Oxygen Delivery Device Not entered [facility] Nucleated red blood cell per centageOrdered By: Austin Perez on 02-26-2025 Nucleated RBC/100 WBC (Bld) [Ratio] 0 % 0-5 [facility] Partial Thromboplast Timeon 02-26-2025 aPTT Coag (Bld) [Time] 34.5 s Normal 24.1-36.2 [facility] Comment on above: Performed By: #### L 503.7505, L501.5200, L501.2300 #### [facility] [address] [place], [address] Platelet countOrdered By: Minh Perez on 02-26-2025 Platelets (Bld) [#/Vol] 315 10*3/uL 150-450 [facility] Potassium measurement (mass/ volume)Ordered By: Austin Perez on 02-26-2025 Potassium (Unsp spec) [Mass/Vol] 4.0 mmol/L 3.3-5.1 [facility] Comment on above: Hemolysis present, R esults could be affected. Hemolysis present, Results could be affected. Hemolysis present, Results could be affected. Protein Test strip Ql (U)Ord ered By: Austin Perez on 02-26-2025 Protein Ql (U) 100 mg/dl High Negative [facility] Prothrombin Time w/INRon INR Coag (PPP) [Relative time] 1.2 {INR} Normal [facility] Comment on above: Performed By: #### L 503.7505, L501.5200, L501.2300 #### [facility] [address] [place], [address] PT Coag (PPP) [Time] 15.3 s High 11.7-14.9 [facility] Comment on above: Performed By: #### L 503.7505, L501.5200, L501.2300 #### [facility] [address] [place], [address] Prothrombin timeOrdered By: Austin Perez on 02-26-2025 PT Coag (PPP) [Time] 15.3 s High 11.7-14.9 [facility] RBC Auto (Bld) [#/Vol]Ordere d By: Austin Perez on 02-26-2025 RBC (Bld) [#/Vol] 4.39 10*6/uL Low 4.6-6.2 [facility] Serum creatinine measurement (mass/volume)Ordered By: Austin Perez on 02-26-2025 Creatinine [Mass/Vol] 1.19 mg/dL 0.70-1.20 [facility] Serum globulin measurementOr dered By: Austin Perez on 02-26-2025 Globulin (S) [Mass/Vol] 3.8 g/dL 2.2-4.2 [facility] Serum glucose measurement (m ass/volume)Ordered By: Austin Perez on 02-26-2025 Glucose [Mass/Vol] 111 mg/dL High 70-99 [facility] Serum or plasma alanine betts otransferase (ALT) measurementOrdered By: Austin Perez on 02-26-2025 ALT [Catalytic activity/Vol] 18 U/L <47 [facility] Serum or plasma albumin sidra urement (mass/volume)Ordered By: Austin Perez on 02-26-2025 Albumin [Mass/Vol] 4.1 g/dL 3.4-4.8 [facility] Serum or plasma albumin/glob ulin mass ratioOrdered By: Austin Perez on 02-26-2025 Albumin/Globulin [Mass ratio] 1.1 {ratio} 0.9-2.4 [facility] Serum or plasma alkaline ronal sphatase measurementOrdered By: Austin Perez on 02-26-2025 ALP [Catalytic activity/Vol] 110 U/L 40-129 [facility] Serum or plasma calcium sidra urement (mass/volume)Ordered By: Austin Perez on 02-26-2025 Calcium [Mass/Vol] 9.3 mg/dL 7.6-11.0 [facility] Serum or plasma urea nitroge n measurement (mass/volume)Ordered By: Austin Perez on 02-26-2025 Urea nitrogen [Mass/Vol] 16 mg/dL 4-19 [facility] Sodium levelOrdered By: Ani Perez on 02-26-2025 Sodium [Moles/Vol] 126 mmol/L Low 133-145 [facility] Spine Cervical without Contr ason 02-26-2025 Spine Cervical without Contras [facility] Imaging Services [address] [place], [place] [address] Spine Cervical without Contras MR#: [id number] Acct: [id number] Name: ELIS BILLS Rep #: [id number] : 1960 M 64 From: Antonio Roman MD PCP: Anna Sanders PA-C Status: REG ER Study: Spine Cervical without Contras Date of Exam: 0 02/26/25 Exam# [id number] Ordering Dr: Austin Perez DO EXAM: CT [...] Contras IMPRESSION: No acute fracture. Reading Location: [facility] CC: STEVE Sanders; Dr. Austin Perez DO Financial Aid Administrator: Signed Normal [facility] Squamous epithelial cells de tection in urine sediment by light microscopyOrdered By: Austin Perez on 02-26-2025 Epithelial cells.squamous LM Ql (Urine sed) 0-5 SEEN /hpf 0-5 [facility] Total proteinOrdered By: Jovan Perez on 02-26-2025 Protein [Mass/Vol] 7.9 g/dL 5.9-8.4 [facility] Troponin T HS 2 HRon 025 Trop T High Sen 49 ng/L High <=22 [facility] Comment on above: Performed By: #### L 499.0042 #### [facility] [address] [place], [address] Troponin T.cardiac [Mass/vol ume] in Serum or Plasma by High sensitivity methodOrdered By: Austin Perez on 02-26-2025 Troponin T.cardiac High sensitivity method [Mass/Vol] 49 ng/L High <22 [facility] Troponin T.cardiac High sensitivity method [Mass/Vol] 53 ng/L High <22 [facility] Comment on above: Critical Result(s) C alled at: 2227 by: KIP DUEÑAS TO ARIS REAL Results read back by same. Urinalysis, Completeon 02-26 EPI,SQUAMOUS 0-5 SEEN Normal 0-5 [facility] Comment on above: Order Comment: CLEAN CATCH Performed By: #### L 503.7505, L501.5200, L501.2300 #### [facility] [address] [place], [address] EPI,RENAL 0-5 SEEN Normal 0-5 [facility] Comment on above: Order Comment: CLEAN CATCH Performed By: #### L 503.7505, L501.5200, L501.2300 #### [facility] [address] [place], [address] RBC 0-5 SEEN Normal 0-5 [facility] Comment on above: Order Comment: CLEAN CATCH Performed By: #### L 503.7505, L501.5200, L501.2300 #### [facility] [address] [place], [address] WBC 0-5 SEEN Normal 0-5 [facility] Comment on above: Order Comment: CLEAN CATCH Performed By: #### L 503.7505, L501.5200, L501.2300 #### [facility] [address] [place], [address] BACTERIA 3+ /hpf Normal None Seen [facility] Comment on above: Order Comment: CLEAN CATCH Performed By: #### L 503.7505, L501.5200, L501.2300 #### [facility] [address] [place], [address] CAST,FINE GRAN 10-25 SEEN Normal 0-5 [facility] Comment on above: Order Comment: CLEAN CATCH Performed By: #### L 503.7505, L501.5200, L501.2300 #### [facility] [address] [place], [address] CAST,HYALINE 5-10 SEEN Normal 0-5 [facility] Comment on above: Order Comment: CLEAN CATCH Performed By: #### L 503.7505, L501.5200, L501.2300 #### [facility] [address] [place], [address] Mucus Ql (Urine sed) 0 SEEN Normal [facility] Comment on above: Order Comment: CLEAN CATCH Performed By: #### L 503.7505, L501.5200, L501.2300 #### [facility] [address] [place], [address] Urine clarityOrdered By: Jovan Perez on 02-26-2025 Clarity (U) Clear Clear [facility] Urine color determinationOrd ered By: Austin Perez on 02-26-2025 Color (U) Yellow Yellow [facility] Urine cultureOrdered By: Jovan Perez on 02-26-2025 Bacteria identified Cx Nom (U) Positive Abnormal [facility] Urine glucose detectionOrder ed By: Austin Perez on 02-26-2025 Glucose Ql (U) Normal mg/dl Normal [facility] Urine leukocyte esterase det ection by dipstickOrdered By: Austin Perez on 02-26-2025 Leukocyte esterase Test strip Ql (U) Negative Negative [facility] Urine pHOrdered By: Austin fitzgerald on 02-26-2025 pH (U) 6.0 [pH] 5.0 - 8.0 [facility] Urine sediment bacteria coun t by microscopy (number/high power field)Ordered By: Austin Perez on 02-26-2025 Bacteria LM.HPF (Urine sed) [#/Area] 3 /[HPF] None Seen [facility] Urine sediment fine granular cast count by microscopy (number/low power field)Ordered By: Austin Perez on 02-26-2025 Fine Granular Casts LM.LPF (Urine sed) [#/Area] 10-25 SEEN /lpf 0-5 [facility] Urine sediment renal epithel ial cell count by microscopy (number/high power field)Ordered By: Austin Perez on 02-26-2025 Epithelial cells.renal LM.HPF (Urine sed) [#/Area] 0 /[HPF] 0-5 [facility] Urine specific gravity measu rementOrdered By: Austin Perez on 02-26-2025 Specific gravity (U) [Rel density] 1.020 1.002-1.030 [facility] Urine urobilinogen measureme ntOrdered By: Austin Perez on 02-26-2025 Urobilinogen Ql (U) Normal mg/dl Normal [facility] Venous Blood Gason 5 Blood Gas Type SERGIO Normal [facility] Comment on above: Performed By: #### L 9000.0810 ####[facility] [address] [place] [id number]( CO2 [Moles/Vol] 25 mmol/L Normal 23-33 [facility] Comment on above: Performed By: #### L 9000.0810 ####[facility] [address] [facility] [address] FI02 4.0 Normal [facility] Comment on above: Performed By: #### L 9000.0810 ####[facility] [address] [facility] [address] HCO3 (Bld) [Moles/Vol] 24 mmol/L Normal 22-26 [facility] Comment on above: Performed By: #### L 9000.0810 ####[facility] [address] [place] [address] O2 Delivery Dev Not entered Normal [facility] Comment on above: Performed By: #### L 9000.0810 ####[facility] [address] [place], [address] SITE Not entered Normal [facility] Comment on above: Performed By: #### L 9000.0810 ####[facility] [address] [place], [address] VBG BE 0 mmol/L Normal -1.0-3.5 [facility] Comment on above: Performed By: #### L 9000.0810 ####[facility] [address] [place], [address] VBG pCO2 32.9 mmHg Low 41-51 [facility] Comment on above: Performed By: #### L 9000.0810 ####[facility] [address] [place], [address] VBG pH 7.47 High 7.32-7.42 [facility] Comment on above: Performed By: #### L 9000.0810 ####[facility] [address] [place], [address] VBG PO2 68 mmHg High 25-40 [facility] Comment on above: Performed By: #### L 9000.0810 ####[facility] [address] [place], [address] VBG SO2 95 High 50-70 [facility] Comment on above: Performed By: #### L 9000.0810 ####[facility] [address] [place], [address] Venous blood base excess josy surementOrdered By: Austin Perez on 02-26-2025 Base excess Calc (BldV) [Moles/Vol] 0 mmol/L -1.0-3.5 [facility] Venous blood bicarbonate josy surementOrdered By: Austin Perez on 02-26-2025 HCO3 (Bld) [Moles/Vol] 24 mmol/L 22-26 [facility] Venous blood oxygen saturati on measurementOrdered By: Austin Perez on 02-26-2025 Oxygen saturation in Blood 95 % High 50-70 [facility] Venous blood pH measurementO rdered By: Austin Perez on 02-26-2025 pH (BldV) 7.47 [pH] High 7.32-7.42 [facility] Venous blood partial pressur e of carbon dioxide measurementOrdered By: Austin Perez on 02-26-2025 CO2 (BldV) [Partial pressure] 32.9 mm[Hg] Low 41-51 [facility] Venous blood partial pressur e of oxygen measurementOrdered By: Austin Perez on 02-26-2025 Oxygen (BldV) [Partial pressure] 68 mm[Hg] High 25-40 [facility] White blood cell (WBC) count Ordered By: Austin Perez on 02-26-2025 WBC (Bld) [#/Vol] 17.4 10*3/uL High 4.4-11.0 [facility] White blood cell countOrdere d By: Austin Perez on 02-26-2025 White blood cell count 0-5 SEEN /hpf 0-5 [facility] Telephone Encounteron 2024 Supervisor [facility] Authentication Interface Message Text Lm on vcml to scheduled PFT Normal [facility] Super[facility] Authentication Interface Message Text Please contact to reschedule PFT appt. Normal [facility] CBC WITH DIFFERENTIALon 12-18 Basophils (Bld) [#/Vol] 0.10 10*3/uL Normal 0.00-0.20 [facility] Comment on above: Performed By: #### C BCDSAT ####[facility] [address] [place], Basophils/100 WBC (Bld) 1.3 % Normal <=1.9 [facility] Comment on above: Performed By: #### C BCDSAT ####[facility] [address] [place], Eosinophils (Bld) [#/Vol] 0.07 10*3/uL Normal 0.00-0.70 [facility] Comment on above: Performed By: #### Cosmo JOSEPHAT ####[facility] [address]BO[address] [place], Eosinophils/100 WBC (Bld) 1.0 % Normal 0.1-4.0 [facility] Comment on above: Performed By: #### Cosmo JOSEPHAT ####[facility] [address] [place] [address], Erythrocyte distribution width (RBC) [Ratio] 13.9 % Normal 11.5-14.5 [facility] Comment on above: Performed By: #### Cosmo JOSEPHAT ####[facility] [address] [place] [address], Hematocrit (Bld) [Volume fraction] 41.4 % Normal 41.0-53.0 [facility] Comment on above: Performed By: #### Cosmo JOSEPHAT ####[facility] [address] [place] [address], Hemoglobin (Bld) [Mass/Vol] 14.5 g/dL Normal 13.9-16.3 [facility] Comment on above: Performed By: #### Cosmo JOSEPHAT ####[facility] [address] [place] [address], Lymphocytes (Bld) [#/Vol] 2.04 10*3/uL Normal 1.00-4.[address] [facility] Comment on above: Performed By: #### Cosmo JOSEPHAT ####[facility] PATHOLOGY [address] [place] [address], Lymphocytes/100 WBC (Bld) 26.5 % Normal 24.0-44.0 [facility] Comment on above: Performed By: #### Cosmo JOSEPHAT ####[facility] PATHOLOG[facility] VQ[address]ZCUG[address] [place], MCH (RBC) [Entitic mass] 30.3 pg Normal 26.0-34.0 [facility] Comment on above: Performed By: #### Cosmo JOSEPHAT ####[facility] XFR[address]ZKNUP[address] [place], MCHC (RBC) [Mass/Vol] 35.1 g/dL Normal 32.0-35.9 [facility] Comment on above: Performed By: #### C BCDSAT ####[facility] Q[address]HO[address] [place], MCV (RBC) [Entitic vol] 87 fL Normal 80-100 [facility] [facility] Comment on above: Performed By: #### C BCDSAT ####[facility] PATHOLOGY [id number] [place], [place], Monocytes (Bld) [#/Vol] 0.73 10*3/uL Normal 0.20-1.[address] [facility] Comment on above: Performed By: #### C BCDSAT ####[facility] PATHOLOGY [id number] [place], [place], Monocytes/100 WBC (Bld) 9.5 % Normal 2.0-11.0 T [facility] Comment on above: Performed By: #### C BCDSAT ####[facility] PATHOLOGY [id number] [place], [place], Neutrophils (Bld) [#/Vol] 4.73 10*3/uL Normal 1.50-8.[address] [facility] Comment on above: Performed By: #### C BCDSAT ####[facility] PATHOLOGY [id number] [place], Neutrophils/100 WBC (Bld) 61.7 % Normal 31.0-76.0 The [facility] Comment on above: Performed By: #### C BCDSAT ####[facility] PATHOLOGY [id number] [place], [place], Platelet mean volume (Bld) [Entitic vol] 7.0 fL Low 7.5-11.2 The [facility] Comment on above: Performed By: #### C BCDSAT ####[facility] PATHOLOGY [id number] [place], [place], Platelets (Bld) [#/Vol] 323 10*3/uL Normal 150-400 The [facility] Comment on above: Performed By: #### C BCDSAT ####[facility] PATHOLOGY [id number] [place], RBC (Bld) [#/Vol] 4.79 10*6/uL Normal 4.50-5.90 The [facility] Comment on above: Performed By: #### C BCDSAT ####[facility] PATHOLOGY [id number] [place], WBC (Bld) [#/Vol] 7.7 10*3/uL Normal 4.5-11.5 The [facility] Comment on above: Performed By: #### C BCDSAT ####[facility] PATHOLOGY [id number] [place], [place], IMMUNOGLOBULIN Janusz IGE 156.3 IU/mL Normal <158.0 The [facility] Comment on above: Performed By: #### 8 [id number] #### [facility] GLUCOSE PROGRAM [address] [place], [address] INHALANT ALLERGEN PANELon A. alternata IgE Qn (S) 0.25 kU/L [facility] A. alternata IgE RAST class (S) 0 Class [facility] A. fumigatus IgE Qn (S) kU/L kU/L [facility] A. fumigatus IgE RAST class (S) 0 Class [facility] North Korean house dust mite IgE Qn (S) kU/L kU/L [facility] North Korean house dust mite IgE RAST class (S) 0 Class [facility] Boxelder IgE Qn (S) kU/L kU/L [facility] Boxelder IgE RAST class (S) 0 Class [facility] Cat dander IgE Qn (S) kU/L kU/L [facility] Cat dander IgE RAST class (S) 0 Class [facility] Cockroach IgE Qn (S) 0.14 kU/L [facility] Cockroach IgE RAST class (S) 0 Class [facility] Common Ragweed 0 Class [facility] Common Ragweed IgE Qn (S) kU/L kU/L [facility] Common Ragweed IgE RAST class (S) kU/L kU/L [facility] Dog dander IgE Qn (S) kU/L kU/L [facility] Dog dander IgE RAST class (S) 0 Class [facility] Setomelanomma rostrata IgE Qn (S) kU/L kU/L [facility] Setomelanomma rostrata IgE RAST class (S) 0 Class [facility] Raul Grass 0 Class [facility] Raul IgE Qn (S) kU/L kU/L [facility] ealth [place] IgE RAST class (S) 0 Class [facility] IgE (kU/L) Interp.: <0.35 Class 0 Below Detect. 0.35 - 0.69 Class 1 Low 0.70 - 3.49 Class 2 Moderate 3.50 - 17.49 Class 3 High 17.50- 52.49 Class 4 Very High 52.50- 99.99 Class 5 Very High >=100 Class 6 Very High [facility] ALTERNARIA ALTERNATA 0.25 kU/L Normal The [facility] Comment on above: Order Comment: IgE ( kU/L) Interp.: <0.35 Class 0 Below Detect. 0.35 - 0.69 Class 1 Low 0.70 - 3.49 Class 2 Moderate 3.50 - 17.49 Class 3 High 17.50- 52.49 Class 4 Very High 52.50- 99.99 Class 5 Very High >=100 Class 6 Very High Performed By: #### 8 [id number] #### NURSING GLUCOSE PROGRAM [address] [place] [address], [address] ALTERNARIA ALTERNATA CLASS 0 Class Normal The [facility] Comment on above: Order Comment: IgE ( kU/L) Interp.: <0.35 Class 0 Below Detect. 0.35 - 0.69 Class 1 Low 0.70 - 3.49 Class 2 Moderate 3.50 - 17.49 Class 3 High 17.50- 52.49 Class 4 Very High 52.50- 99.99 Class 5 Very High >=100 Class 6 Very High Performed By: #### 8 [id number] #### NURSING GLUCOSE PROGRAM [address] [place] [address], [address] ASPERGILLUS FUMIGATUS < 0.10 Normal The [facility] Comment on above: Order Comment: IgE ( kU/L) Interp.: <0.35 Class 0 Below Detect. 0.35 - 0.69 Class 1 Low 0.70 - 3.49 Class 2 Moderate 3.50 - 17.49 Class 3 High 17.50- 52.49 Class 4 Very High 52.50- 99.99 Class 5 Very High >=100 Class 6 Very High Performed By: #### 8 [id number] #### NURSING GLUCOSE PROGRAM [address] [place] [address], [address] ASPERGILLUS FUMIGATUS CLASS 0 Class Normal [facility] Comment on above: Order Comment: IgE ( kU/L) Interp.: <0.35 Class 0 Below Detect. 0.35 - 0.69 Class 1 Low 0.70 - 3.49 Class 2 Moderate 3.50 - 17.49 Class 3 High 17.50- 52.49 Class 4 Very High 52.50- 99.99 Class 5 Very High >=100 Class 6 Very High Performed By: #### 8 [id number] #### NURSING GLUCOSE PROGRAM [address] [place] [address], [address] BOX ELDER < 0.10 Normal The [facility] Comment on above: Order Comment: IgE ( kU/L) Interp.: <0.35 Class 0 Below Detect. 0.35 - 0.69 Class 1 Low 0.70 - 3.49 Class 2 Moderate 3.50 - 17.49 Class 3 High 17.50- 52.49 Class 4 Very High 52.50- 99.99 Class 5 Very High >=100 Class 6 Very High Performed By: #### 8 [id number] #### NURSING GLUCOSE PROGRAM [address] [place] [address], [address] BOX ELDER CLASS 0 Class Normal The [facility] Comment on above: Order Comment: IgE ( kU/L) Interp.: <0.35 Class 0 Below Detect. 0.35 - 0.69 Class 1 Low 0.70 - 3.49 Class 2 Moderate 3.50 - 17.49 Class 3 High 17.50- 52.49 Class 4 Very High 52.50- 99.99 Class 5 Very High >=100 Class 6 Very High Performed By: #### 8 [id number] #### NURSING GLUCOSE PROGRAM [address] [place], [address] CAT DANDER < 0.10 Normal The [facility] Comment on above: Order Comment: IgE ( kU/L) Interp.: <0.35 Class 0 Below Detect. 0.35 - 0.69 Class 1 Low 0.70 - 3.49 Class 2 Moderate 3.50 - 17.49 Class 3 High 17.50- 52.49 Class 4 Very High 52.50- 99.99 Class 5 Very High >=100 Class 6 Very High Performed By: #### 8 [id number] #### NURSING GLUCOSE PROGRAM [address] [place], [address] CAT DANDER CLASS 0 Class Normal [facility] Comment on above: Order Comment: IgE ( kU/L) Interp.: <0.35 Class 0 Below Detect. 0.35 - 0.69 Class 1 Low 0.70 - 3.49 Class 2 Moderate 3.50 - 17.49 Class 3 High 17.50- 52.49 Class 4 Very High 52.50- 99.99 Class 5 Very High >=100 Class 6 Very High Performed By: #### 8 2948 #### NURSING GLUCOSE PROGRAM [address] [place] [address], [address] COCKROACH 0.14 kU/L Normal [facility] Comment on above: Order Comment: IgE ( kU/L) Interp.: <0.35 Class 0 Below Detect. 0.35 - 0.69 Class 1 Low 0.70 - 3.49 Class 2 Moderate 3.50 - 17.49 Class 3 High 17.50- 52.49 Class 4 Very High 52.50- 99.99 Class 5 Very High >=100 Class 6 Very High Performed By: #### 8 2948 #### NURSING GLUCOSE PROGRAM [address] [place], [address] COCKROACH CLASS 0 Class Normal [facility] Comment on above: Order Comment: IgE ( kU/L) Interp.: <0.35 Class 0 Below Detect. 0.35 - 0.69 Class 1 Low 0.70 - 3.49 Class 2 Moderate 3.50 - 17.49 Class 3 High 17.50- 52.49 Class 4 Very High 52.50- 99.99 Class 5 Very High >=100 Class 6 Very High Performed By: #### 8 2948 #### NURSING GLUCOSE PROGRAM [address] [place], [address] COMMON RAGWEED < 0.10 Normal [facility] Comment on above: Order Comment: IgE ( kU/L) Interp.: <0.35 Class 0 Below Detect. 0.35 - 0.69 Class 1 Low 0.70 - 3.49 Class 2 Moderate 3.50 - 17.49 Class 3 High 17.50- 52.49 Class 4 Very High 52.50- 99.99 Class 5 Very High >=100 Class 6 Very High Performed By: #### 8 2948 #### NURSING GLUCOSE PROGRAM [address] [place] [address], [address] COMMON RAGWEED CLASS 0 Class Normal The [facility] Comment on above: Order Comment: IgE ( kU/L) Interp.: <0.35 Class 0 Below Detect. 0.35 - 0.69 Class 1 Low 0.70 - 3.49 Class 2 Moderate 3.50 - 17.49 Class 3 High 17.50- 52.49 Class 4 Very High 52.50- 99.99 Class 5 Very High >=100 Class 6 Very High Performed By: #### 8 2948 #### NURSING GLUCOSE PROGRAM [address] [place] [address], [address] D. FARINAE (DUST MITE) CLASS 0 Class Normal The [facility] Comment on above: Order Comment: IgE ( kU/L) Interp.: <0.35 Class 0 Below Detect. 0.35 - 0.69 Class 1 Low 0.70 - 3.49 Class 2 Moderate 3.50 - 17.49 Class 3 High 17.50- 52.49 Class 4 Very High 52.50- 99.99 Class 5 Very High >=100 Class 6 Very High Performed By: #### 8 2948 #### NURSING GLUCOSE PROGRAM [address] [place] [address], [address] D. FARINAE (HOUSE DUST MITE) < 0.10 Normal The [facility] Comment on above: Order Comment: IgE ( kU/L) Interp.: <0.35 Class 0 Below Detect. 0.35 - 0.69 Class 1 Low 0.70 - 3.49 Class 2 Moderate 3.50 - 17.49 Class 3 High 17.50- 52.49 Class 4 Very High 52.50- 99.99 Class 5 Very High >=100 Class 6 Very High Performed By: #### 8 2948 #### NURSING GLUCOSE PROGRAM [address] [place] [address], [address] DOG DANDER < 0.10 Normal The [facility] Comment on above: Order Comment: IgE ( kU/L) Interp.: <0.35 Class 0 Below Detect. 0.35 - 0.69 Class 1 Low 0.70 - 3.49 Class 2 Moderate 3.50 - 17.49 Class 3 High 17.50- 52.49 Class 4 Very High 52.50- 99.99 Class 5 Very High >=100 Class 6 Very High Performed By: #### 8 2948 #### NURSING GLUCOSE PROGRAM [address] [place] [address], [address] DOG DANDER CLASS 0 Class Normal The [facility] Comment on above: Order Comment: IgE ( kU/L) Interp.: <0.35 Class 0 Below Detect. 0.35 - 0.69 Class 1 Low 0.70 - 3.49 Class 2 Moderate 3.50 - 17.49 Class 3 High 17.50- 52.49 Class 4 Very High 52.50- 99.99 Class 5 Very High >=100 Class 6 Very High Performed By: #### 8 2948 #### NURSING GLUCOSE PROGRAM [address] [place] [address], [address] HELMINTHOSPORIUM HALODES < 0.10 Normal The [facility] Comment on above: Order Comment: IgE ( kU/L) Interp.: <0.35 Class 0 Below Detect. 0.35 - 0.69 Class 1 Low 0.70 - 3.49 Class 2 Moderate 3.50 - 17.49 Class 3 High 17.50- 52.49 Class 4 Very High 52.50- 99.99 Class 5 Very High >=100 Class 6 Very High Performed By: #### 8 2948 #### NURSING GLUCOSE PROGRAM [address] [place] [address], [address] HELMINTHOSPORIUM HALODES CLASS 0 Class Normal The [facility] Comment on above: Order Comment: IgE ( kU/L) Interp.: <0.35 Class 0 Below Detect. 0.35 - 0.69 Class 1 Low 0.70 - 3.49 Class 2 Moderate 3.50 - 17.49 Class 3 High 17.50- 52.49 Class 4 Very High 52.50- 99.99 Class 5 Very High >=100 Class 6 Very High Performed By: #### 8 2948 #### NURSING GLUCOSE PROGRAM [address] [place] [address], [address] OAK < 0.10 Normal The [facility] Comment on above: Order Comment: IgE ( kU/L) Interp.: <0.35 Class 0 Below Detect. 0.35 - 0.69 Class 1 Low 0.70 - 3.49 Class 2 Moderate 3.50 - 17.49 Class 3 High 17.50- 52.49 Class 4 Very High 52.50- 99.99 Class 5 Very High >=100 Class 6 Very High Performed By: #### 8 2948 #### NURSING GLUCOSE PROGRAM [address] [place] [address], [address] OAK CLASS 0 Class Normal [facility] Comment on above: Order Comment: IgE ( kU/L) Interp.: <0.35 Class 0 Below Detect. 0.35 - 0.69 Class 1 Low 0.70 - 3.49 Class 2 Moderate 3.50 - 17.49 Class 3 High 17.50- 52.49 Class 4 Very High 52.50- 99.99 Class 5 Very High >=100 Class 6 Very High Performed By: #### 8 2948 #### NURSING GLUCOSE PROGRAM [address] [place] [address], [address] RAUL GRASS < 0.10 Normal The [facility] Comment on above: Order Comment: IgE ( kU/L) Interp.: <0.35 Class 0 Below Detect. 0.35 - 0.69 Class 1 Low 0.70 - 3.49 Class 2 Moderate 3.50 - 17.49 Class 3 High 17.50- 52.49 Class 4 Very High 52.50- 99.99 Class 5 Very High >=100 Class 6 Very High Performed By: #### 8 2948 #### NURSING GLUCOSE PROGRAM [address] [place] [address], [address] RAUL GRASS CLASS 0 Class Normal [facility] Comment on above: Order Comment: IgE ( kU/L) Interp.: <0.35 Class 0 Below Detect. 0.35 - 0.69 Class 1 Low 0.70 - 3.49 Class 2 Moderate 3.50 - 17.49 Class 3 High 17.50- 52.49 Class 4 Very High 52.50- 99.99 Class 5 Very High >=100 Class 6 Very High Performed By: #### 8 2948 #### NURSING GLUCOSE PROGRAM [address] [place] [address], [address] Laboratory - Hematology and Cell countson 01-08-2025 Basophils (Bld) [#/Vol] 0.1 10*3/uL 0.00 - 0.20 K/uL [facility] Basophils/100 WBC (Bld) 1.3 % NINF - 1.9 % [facility] Eosinophils (Bld) [#/Vol] 0.07 10*3/uL 0.00 - 0.70 K/uL [facility] Eosinophils/100 WBC (Bld) 1 % 0.1 - 4.0 % [facility] Erythrocyte distribution width (RBC) [Ratio] 13.9 % [...] 7 fL Low 7.5 - 11.2 fL [facility] Platelets (Bld) [#/Vol] 323 10*3/uL 150 - 400 K/uL [facility] RBC (Bld) [#/Vol] 4.79 10*6/uL [facility] WBC (Bld) [#/Vol] 7.7 10*3/uL 4.5 - 11.5 K/uL [facility] Laboratory - Serology - non- microon 01-08-2025 Immune complex IgE Qn 156.3 ZHENG Marquez [facility] No Panel Informationon 01-08 Interpretation and review of laboratory results Normal [facility] Interpretation and review of laboratory results Abnormal [facility] Progress Noteson 01-08-2025 Supervisor Cytogenetic Laboratory Authentication Interface Message Text Division of Pulmonary, [...] this hospital course he was seen by [facility] pulmonary in October and then by a private practice gerentological physiotherapist in [place] (no OV notes available) Per patient and [...] -- -- 0.07 <0.03 Modified Medical [employer] [place] (mMRC) dyspnea scale Grade Description of breathlessness [...] + PRN 2L with exertion Occupation/Exposures: Occupation: [employer] Born/raised: [place] Pets: 1 dog Triggers: highlighted if positive [...] - Connective tissue disorders; SLE, Sjogren's, RA, Sherman's - Iritable bowel disease - Malignancy or [...] (CVX=15) 05/26/2017 Influenza, injectable, quadrivalent, preservative free (HBA=942) 06/04/2017, 04/24/2019 Influenza, injectable, trivalent, preservative free (BCP=792) 06/05/2015, 05/26/2017 Pneumococcal conjugate 13 valent (PCV13) (AKG=591) 06/08/2015, 05/26/2017 Pneumococcal polysaccharide 23 Valent (PPSV23) (CVX=33) 06/04/2017 Tdap (FSK=655) 06/14/2023 Pended (more content not included)... Normal [facility] Supervisor Cytogenetic Laboratory Authentication Interface Message Text Patient was identified by name and date of . Barak Cerrato MA .Patient at risk for falls:No Falls Risk protocol implemented: N/A Normal [facility] Telephone Encounteron 2024 Supervisor Cytogenetic Laboratory Authentication Interface Message Text Neurology Clinical Energy Conservation Representative Note Attempted to call patient. LVM to return call to this RN to schedule a neurology appt for JIN with Dr Flannery. Letter sent SUSY Flood, RN, CMSRN Clinical Energy Conservation Representative, Neurology Normal [facility] Consultson 12-07-2024 Supervisor Cytogenetic Laboratory Authentication Interface Message Text NEUROLOGY INITIAL CONSULT NOTE Reason for Consult: L sided headache with blurring of vision Consulted by: Michael Avendano MD HPI: 64 yo M with pMH of COPD, tobacco and alcohol use, TIA (P2 occlusion 2019, on plavix), GERD, hyperlipidemia, lumbar laminectomy (07/2024) [...] showing no acute abnormalities but with R MEMBER CERTIFICATION MANAGER irregularity that was recanalized since 2018 CTA during his TIA. Labs with mild [...] medial rectus muscle. Recanalization of the right MEMBER CERTIFICATION MANAGER with irregularity of the vessel. No significant stenosis, dissection, or aneurysm in the intracranial or extracranial circulation. 04/2019 CTA head and neck: IMPRESSION: 1. 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 No evidence of acute infarct or hemorrhage. 2. Mild atherosclerotic disease of the cervical and intracranial ICAs without significant stenosis or occlusion. 3. Multifocal tree-in-bud opacities within the lung apices, likely smoking-rel (more content not included)... Normal [facility] ED Provider Noteson 12-08-19 Supervisor Cytogenetic Laboratory Authentication Interface Message Text MH for BM [...] unspecified headache type [R51.9, G89.29] Normal [facility] Interface Message Text --------- HISTORY OF PRESENT [...] Notes: Reviewed and utilized the nursing notes. Mannequin Sander And Finisher: not needed - patient preferred language is Beninese. External Medical Records: The patient's available past medical records and past encounters were reviewed. Summary of pertinent elements include: 12/02/24: [facility] ED: Similar sx headache, left sided vision loss Landscape Horticulture Instructor consult evaluation unremarkable. No concern for carotid artery disease or GCA Pt was recommended staying in the CDU for neuro consult Pt left AMA before placement in CDU CTA Head/Neck No acute intracranial abnormality Enlargement of the left medial rectus muscle. Recanalization of the right MEMBER CERTIFICATION MANAGER with irregularity of the vessel. No significant [...] and (more content not included)... Normal [facility] BASIC METABOLIC PANELon 05-1 Anion gap [Moles/Vol] 11 mmol/L Normal 10-20 [facility] Comment on above: Performed By: #### C ZIYAD, CH8 #### S PATHOLOGY LABORATORY [address] [place] [address], Calcium [Mass/Vol] 9.4 mg/dL Normal 8.6-10.3 [facility] Comment on above: Performed By: #### Cosmo LACKEY CH8 #### S PATHOLOGY LABORATORY [address] [place] [address], Chloride [Moles/Vol] 99 mmol/L Normal 98-107 [facility] Comment on above: Performed By: #### Cosmo LACKEY, CH8 #### S PATHOLOGY LABORATORY [address] [place] [address], CO2 [Moles/Vol] 29 mmol/L Normal 21-31 The [facility] Comment on above: Performed By: #### Cosmo LACKEY, CH8 #### S PATHOLOGY LABORATORY [address] [place] [address], Creatinine [Mass/Vol] 0.89 mg/dL Normal 0.70-1.30 [facility] Comment on above: Performed By: #### Cosmo LACKEY CH8 #### S PATHOLOGY LABORATORY [address] [place] [address], ESTIMATED GFR (CKD-EPI) 95 mL/min/1.73sqm Normal >=60 [facility] Comment on above: Result Comment: 2020 [...] Inclusion of Race in Diagnosing Kidney Disease. [place] Journal of Kidney Diseases 2021;79(2):268-88.e1. 2. N Engl J Med 1 Vol. 385 Issue 19 Pages 1615-8291 Performed By: #### Cosmo LACKEY CH8 #### S PATHOLOGY LABORATORY [address] [place] [address], Glucose [Mass/Vol] 90 mg/dL Normal 74-109 [facility] Comment on above: Performed By: #### Cosmo LACKEY CH8 #### S PATHOLOGY LABORATORY [address] [place] [address], Potassium [Moles/Vol] 5.0 mmol/L Normal 3.5-5.0 [facility] Comment on above: Result Comment: Hemo lysis present Performed By: #### Cosmo LACKEY CH8 #### S PATHOLOGY LABORATORY [address] [place] [address], Sodium [Moles/Vol] 134 mmol/L Low 136-145 [facility] Comment on above: Performed By: #### Cosmo LACKEY CH8 #### S PATHOLOGY LABORATORY [address] [place] [address], Urea nitrogen [Mass/Vol] 11 mg/dL Normal 7-25 [facility] Comment on above: Performed By: ###Steve Wilburn RP, CH8 #### S PATHOLOGY LABORATORY [address] [place] [address], [place], [address] Basic metabolic 2000 panelon 12-02-2024 Anion gap [Moles/Vol] 11 mmol/L 10 - 20 [facility] Calcium [Mass/Vol] 9.4 mg/dL 8.6 - 10. 3 mg/dL [facility] Chloride [Moles/Vol] 99 mmol/L 98 - 10 7 mmol/L [facility] CO2 [Moles/Vol] 29 mmol/L 21 - 31 mmol/L [facility] Creatinine [Mass/Vol] 0.89 mg/dL 0.70 - 1.30 mg/dL [facility] GFR/1.73 sq M.predicted CKD-EPI (S/P/Bld) [Vol rate/Area] 95 - PINF [facility] Comment on above: 2020 CKD EPI Equatio [...] Inclusion of Race in Diagnosing Kidney Disease. [place] Journal of Kidney Diseases 2021;79(2):268-88.e1. 2. N Engl J Med 1 Vol. 385 Issue 19 Pages 7089-2275 Glucose [Mass/Vol] 90 mg/dL 74 - 109 mg/dL [facility] Interpretation and review of laboratory results Abnormal [facility] Potassium [Moles/Vol] 5 mmol/L 3.5 - 5.0 mmol/L [facility] Comment on above: Hemolysis present Sodium [Moles/Vol] 134 mmol/L Low 136 - 145 mmol/L [facility] Urea nitrogen [Mass/Vol] 11 mg/dL 7 - 25 mg/dL [facility] C-REACTIVE PROTEINon 025 CRP [Mass/Vol] mg/dL NINF - 0.5 mg/dL [facility]ation and review of laboratory results Normal [facility] CRP [Mass/Vol] mg/L Normal <0.5 [facility] Comment on above: Performed By: #### C RP, CH8 ####S PATHOLOGY [id number] [place], [address] CBC WITH DIFFERENTIALon 11-16 Basophils (Bld) [#/Vol] [...] RBC (Bld) [#/Vol] 4.47 10*6/uL Low [facility] WBC (Bld) [#/Vol] 8 10*3/uL 4.5 - 11.5 K/uL [facility] Basophils (Bld) [#/Vol] 0.08 10*3/uL Normal 0.00-0.20 The [facility] Comment on above: Performed By: #### 8 2948 #### NURSING GLUCOSE PROGRAM [address] [place] [address], [address] Basophils/100 WBC (Bld) 1.0 % Normal <=1.9 T he [facility] Comment on above: Performed By: #### 8 2940 #### NURSING GLUCOSE PROGRAM [address] [place] [address], [address] Eosinophils (Bld) [#/Vol] 0.13 10*3/uL Normal 0.00-0.70 The [facility] Comment on above: Performed By: #### 8 [id number] #### NURSING GLUCOSE PROGRAM [address] [place] [address], [address] Eosinophils/100 WBC (Bld) 1.6 % Normal 0.1-4.0 The [facility] Comment on above: Performed By: #### 8 3428 #### NURSING GLUCOSE PROGRAM [address] [place] [address], [address] Erythrocyte distribution width (RBC) [Ratio] 15.8 % High 11.5-14.5 The [facility] Comment on above: Performed By: #### 8 8688 #### NURSING GLUCOSE PROGRAM [address] [place] [address], [address] Hematocrit (Bld) [Volume fraction] 38.6 % Low 41.0-53.0 The [facility] Comment on above: Performed By: #### 8 4548 #### NURSING GLUCOSE PROGRAM [address] [place] [address], [address] Hemoglobin (Bld) [Mass/Vol] 13.7 g/dL Low 13.9-16.3 [facility] Comment on above: Performed By: #### 8 2941 #### NURSING GLUCOSE PROGRAM [address] [place] [address], [address] Lymphocytes (Bld) [#/Vol] 2.20 10*3/uL Normal 1.00-4.80 [facility] [facility] Comment on above: Performed By: #### 8 2948 #### NURSING GLUCOSE PROGRAM [address] [place] [address], [address] Lymphocytes/100 WBC (Bld) 27.4 % Normal 24.0-44.0 [facility] Comment on above: Performed By: #### 8 2948 #### NURSING GLUCOSE PROGRAM [address] [place] [address], [address] MCH (RBC) [Entitic mass] 30.7 pg Normal 26.0-34.0 [facility] Comment on above: Performed By: #### 8 2948 #### NURSING GLUCOSE PROGRAM [address] [place] [address], [address] MCHC (RBC) [Mass/Vol] 35.5 g/dL Normal 32.0-35.9 [facility] Comment on above: Performed By: #### 8 2948 #### NURSING GLUCOSE PROGRAM [address] [place] [address], [address] MCV (RBC) [Entitic vol] 86 fL Normal 80-100 [facility] Comment on above: Performed By: #### 8 2948 #### NURSING GLUCOSE PROGRAM [address] [place] [address], [address] MONOCYTE DISTRIBUTION WIDTH 16 Normal <=20 [facility] Comment on above: Performed By: #### 8 2948 #### NURSING GLUCOSE PROGRAM [address] [place] [address], [address] Monocytes (Bld) [#/Vol] 1.00 10*3/uL Normal 0.20-1.00 [facility] Comment on above: Performed By: #### 8 2948 #### NURSING GLUCOSE PROGRAM [address] [place] [address], [address] Monocytes/100 WBC (Bld) 12.4 % High 2.0-11.0 [facility] Comment on above: Performed By: #### 8 2948 #### NURSING GLUCOSE PROGRAM [address] [place] [address], [address] Neutrophils (Bld) [#/Vol] 4.64 10*3/uL Normal 1.50-8.00 [facility] Comment on above: Performed By: #### 8 2948 #### NURSING GLUCOSE PROGRAM [address] [place], [address] Neutrophils/100 WBC (Bld) 57.7 % Normal 31.0-76.0 [facility] Comment on above: Performed By: #### 8 2948 #### NURSING GLUCOSE PROGRAM [address] [place], [address] Platelet mean volume (Bld) [Entitic vol] 7.5 fL Normal 7.5-11.2 [facility] Comment on above: Performed By: #### 8 2948 #### NURSING GLUCOSE PROGRAM [address] [place], [address] Platelets (Bld) [#/Vol] 259 10*3/uL Normal 150-400 [facility] Comment on above: Performed By: #### 8 2948 #### NURSING GLUCOSE PROGRAM [address] [place], [address] RBC (Bld) [#/Vol] 4.47 10*6/uL Low 4.50-5.90 [facility] Comment on above: Performed By: #### 8 2948 #### NURSING GLUCOSE PROGRAM [address] [place], [address] WBC (Bld) [#/Vol] 8.0 10*3/uL Normal 4.5-11.5 [facility] Comment on above: Performed By: #### 8 2948 #### NURSING GLUCOSE PROGRAM [address] [place], [address] CTA HEAD/NECK W/on CTA HEAD/NECK W/ EXAMINATION: [...] Circulation: Recanalization of the previously occluded right MEMBER CERTIFICATION MANAGER with irregularity of the vessel. Intracranial vertebral arteries, PICA/AICA branches, basilar artery, SCAs and digital media representative are patent. No vessel cutoff, aneurysm or focal hemodynamically significant stenosis. Other: No evidence of a soft tissue mass or lymphadenopathy in the neck or superior mediastinum. The lung apices are clear. IMPRESSION: No acute intracranial abnormality. Enlargement of the left medial rectus muscle. Recanalization of the right MEMBER CERTIFICATION MANAGER with irregularity of the vessel. No significant stenosis, dissection, or aneurysm in the intracranial or extracranial circulation. MACRO: None Normal [facility] CTA Head vessels and Neck ve ssels WO and W contrast IVOrdered By: Ming Torres on 12-02-2024 CT DLP 3838.3 (mGy.cm) [facility] Work Phone: CT Series Head,Head,Head,Head [facility] Work Phone: CTDI VOL 67.5 (mGy),9.6 (mGy),43.5 (mGy),59.2 (mGy) [facility] Work Phone: PHANTOM TYPE IEC Head Dosimetry Phantom,IEC Head Dosimetry Phantom,IEC Head Dosimetry Phantom,IEC Head Dosimetry Phantom [facility] Work Phone: [facility] Work Phone: CTA Head vessels and Neck ve ssels WO and W contrast Boni 12-02-2024 EXAMINATION: CTA HEAD/NECK W/ 12/02/2024 03:16 PM [...] Circulation: Recanalization of the previously occluded right MEMBER CERTIFICATION MANAGER with irregularity of the vessel. Intracranial vertebral arteries, PICA/AICA branches, basilar artery, SCAs and digital media representative are patent. No vessel cutoff, aneurysm or focal hemodynamically significant stenosis. Other: No evidence of a soft tissue mass or lymphadenopathy in the neck or superior mediastinum. The lung apices are clear. IMPRESSION: No acute intracranial abnormality. Enlargement of the left medial rectus muscle. Recanalization of the right MEMBER CERTIFICATION MANAGER with irregularity of the vessel. No significant stenosis, dissection, or aneurysm in the intracranial or extracranial circulation. MACRO: None RADIOLOGY Ming Torres MD - 12/02/2024 EXAMINATION: CTA HEAD/NECK W12/02/2024 03:16 PM CLINICAL [...] Circulation: Recanalization of the previously occluded right MEMBER CERTIFICATION MANAGER with irregularity of the vessel. Intracranial vertebral arteries, PICA/AICA branches, basilar artery, SCAs and digital media representative are patent. No vessel cutoff, aneurysm or focal hemodynamically significant stenosis. Other: No evidence of a soft tissue mass or lymphadenopathy in the neck or superior mediastinum. The lung apices are clear. IMPRESSION: No acute intracranial abnormality. Enlargement of the left medial rectus muscle. Recanalization of the right MEMBER CERTIFICATION MANAGER with irregularity of the vessel. No significant stenosis, dissection, or aneurysm in the intracranial or extracranial circulation. MACRO: None [facility] Radiology Study observation (narrative) [facility] Consultson 12-02-2024 Supervisor Cytogenetic Laboratory Authentication Interface Message Text Attestation signed by [...] no cell, heme, or pigment DISC OD: [place], sharp, perfused, and c/d 0.3 OS: [place], sharp, perfused, and c/d 0.25 VESSELS OD: [...] -Routine f/u with optometry. (Patient has an hand paster). -Provided patient with return precautions should he have a recurrence of transient vision loss. Dhiraj Mustafa MD Ophthalmology Resident Plan discussed with senior resident on-call, Dr. Saldivar Please page [phone] with any questions or concerns. Commonly used [...] angle/disc/elsewh (more content not included)... Normal [facility] ED Provider Noteson 12-03-19 Supervisor Cytogenetic Laboratory Authentication Interface Message Text ED RESIDENT CONTINUATION [...] Signout note reviewed. ED Course as of 12/02/242146 Sat December 02, 2024 1336 BP: 159/78 [...] 2019, on plavix), GERD, HLD, lumbar laminectomy (07/2024). [...] for Chief Complaint Patient presents with Headache IJN x24 hrs w/ vision changes During my [...] physica (more content not included)... Normal [facility] Supervisor Cytogenetic Laboratory Authentication Interface Message Text Attestation signed by [...] room at the time of the evaluation. Mannequin Sander And Finisher: not needed - patient preferred language is Beninese. The history is provided by the Patient. [...] 8.0 (more content not included)... Normal [facility] ERYTHROCYTE SEDIMENTATION RA Mylene 12-02-2024 ESR (Bld) [Velocity] 18 mm/h [facility] Interpretation and review of laboratory results Normal [facility] ESR (Bld) [Velocity] 18 mm/h Normal <=20 [facility] Comment on above: Performed By: #### 8 2948 #### [facility] GLUCOSE PROGRAM [address] [place] [address], [address] GLUCOSE, FINGERSTICK-IN OFFI CEon 12-02-2024 Glucose [Mass/Vol] 104 mg/dL 74 - 109 mg/dL [facility] Interpretation and review of laboratory results Normal [facility] Glucose [Mass/Vol] 104 mg/dL Normal 74-109 The [facility] Comment on above: Performed By: #### 8 2948 #### NURSING GLUCOSE PROGRAM [address] [facility] [place], [address] HIGH SENSITIVITY TROPONIN Io n 12-02-2024 Troponin I.cardiac DL <= 0.01 ng/mL [Mass/Vol] 11 ng/L NINF - 15 ng/L [facility] HS TROPONIN I 11 ng/L Normal <=[address] [facility] Comment on above: Order Comment: [place] ignacio troponin can result from acute myocardial [...] H STRP #### [facility] [address] [place], [address] Troponin I.cardiac DL <= 0.0 1 ng/mL [Mass/Vol]on 12-02-2024 Interpretation and review of laboratory results Normal [facility] Elevated troponin ca n result from [...] the clinical context using provider judgement. [facility] XR CHEST PA+LAT 2 VIEWSon XR CHEST PA+LAT 2 VIEWS EXAMINATION: XR CHEST PA+LAT 2 VIEWS 12/02/2024 01:50 PM CLINICAL HISTORY: Hx of previous CVA ASSOCIATED DIAGNOSIS: Hx of previous CVA ORDERING PROVIDER: ELVIS RODRIGUEZ TECHNXIOMARA NOTE: COMPARISON: XR CHEST AP OR PA [...] agree with the resident's interpretation. Normal [facility] XR Chest PA and Lateralon EXAMINATION: XR CHES T PA+LAT 2 VIEWS 12/02/2024 01:50 PM CLINICAL HISTORY: Hx of previous CVA ASSOCIATED DIAGNOSIS: Hx of previous CVA ORDERING PROVIDER: ELVIS LANDEROS NOTE: COMPARISON: XR CHEST AP OR PA [...] Hx of previous CVA ORDERING PROVIDER: ELVIS LANDEROS NOTE: COMPARISON: XR CHEST AP OR PA [...] images and agree with the resident's interpretation. [facility] Radiology Study observation (narrative) [facility] XR Chest PA and LateralOrder ed By: Michael Mcdonald on 12-02-2024 [facility] Work Phone: Telephone Encounteron 2024 Supervisor Cytogenetic Laboratory Authentication Interface Message Text COPD Care Coordination note: Subjective: I am doing ok Objective: Future Appointments (next 10) Provider Department Center 01/08/2025 10:20 AM (Arrive by 10:10 AM) Veronica Butt APRN-CNP [facility] Pulmonary Main [place] 01/18/2025 9:40 AM Anna Sanders PA-C [facility] Medicine [place] [facility] Called patient who reports: Patient reports [...] prescribed Attend all recommended appointments Brooke Wu Frame Stripper [phone] Option 3 Normal [facility] Progress Noteson 11-17-2024 Supervisor Cytogenetic Laboratory Authentication Interface Message Text History provided by: [...] cerebra (more content not included)... Normal [facility] Supervisor Cytogenetic Laboratory Authentication Interface Message Text Identification was verified by patient verbalizing his name and date of . Normal [facility] Telephone Encounteron 2024 Supervisor Cytogenetic Laboratory Authentication Interface Message Text [place], The patient has been referred to the pulmonary rehab program. The pulmonary referral that was placed does not have the measurements from the PFT included within it. On the referral it states Patient's Reference Values: No results found for: [id number]. In order to assess whether or not the patient qualifies, we will need these values filled in on the referral. Please consider ordering PFTs for the patient so that the updated values can be included in the referral. Based on the current referral, the patient will not be added to the workqueue at this time. Thank you. Normal [facility] BASIC METABOLIC PANELon 10-17 Anion gap [Moles/Vol] 13 mmol/L Normal 10-20 [facility] Comment on above: Performed By: #### Socorro Stroud CH8 ####[facility] PATHOLOGY [id number] [place], [place], Calcium [Mass/Vol] 8.9 mg/dL Normal 8.6-10.3 [facility] Comment on above: Performed By: #### Socorro Stroud CH8 ####S PATHOLOGY [id number] [place], Chloride [Moles/Vol] 101 mmol/L Normal 98-107 [facility] Comment on above: Performed By: ###Steve Stroud CH8 ####S PATHOLOGY [id number] [place], CO2 [Moles/Vol] 26 mmol/L Normal 21-31 [facility] Comment on above: Performed By: ###Steve Stroud CH8 ####[facility] PATH[facility] [id number] [place], Creatinine [Mass/Vol] 1.03 mg/dL Normal 0.70-1.30 [facility] Comment on above: Performed By: ###Steve Stroud CH8 ####[facility] PATHOLOGY [id number] [place], ESTIMATED GFR (CKD-EPI) 81 mL/min/1.73sqm Normal >=60 [facility] Comment on above: Result Comment: 2020 [...] Inclusion of Race in Diagnosing Kidney Disease. [place] Journal of Kidney Diseases 2021;79(2):268-88.e1. 2. N Engl J Med 1 Vol. 385 Issue 19 Pages 6981-6613 Performed By: #### Socorro Stroud CH8 ####[facility] PATHOLOGY [id number] [place], Glucose [Mass/Vol] 104 mg/dL Normal 74-109 [facility] Comment on above: Performed By: ###Steve Stroud CH8 ####[facility] PATHOLOGY [id number] [place], Potassium [Moles/Vol] 4.0 mmol/L Normal 3.5-5.0 [facility] Comment on above: Performed By: ###Steve Stroud CH8 ####S PATHOLOGY [id number] [place], Sodium [Moles/Vol] 136 mmol/L Normal 136-145 [facility] Comment on above: Performed By: ###Steve Stroud CH8 ####S PATHOLOGY MIHYIAHPZQ5026 [place], Urea nitrogen [Mass/Vol] 29 mg/dL High 7-25 [facility] Comment on above: Performed By: ###Steve Stroud CH8 ####[facility] PATHOLOGY [id number] [place], [address] Basic metabolic 2000 panelon 10-26-2024 Anion gap [Moles/Vol] 13 mmol/L 10 - 20 [facility] Calcium [Mass/Vol] 8.9 mg/dL 8.6 - 10. 3 mg/dL [facility] Chloride [Moles/Vol] 101 mmol/L 98 - 10 7 mmol/L [facility] CO2 [Moles/Vol] 26 mmol/L 21 - 31 mmol/L [facility] Creatinine [Mass/Vol] 1.03 mg/dL 0.70 - 1.30 mg/dL [facility] GFR/1.73 sq M.predicted CKD-EPI (S/P/Bld) [Vol rate/Area] 81 - PINF [facility] Comment on above: 2020 CKD EPI Equatio [...] Inclusion of Race in Diagnosing Kidney Disease. [place] Journal of Kidney Diseases 2021;79(2):268-88.e1. 2. N Engl J Med 2020 Vol. 385 Issue 19 Pages 9730-2942 Glucose [Mass/Vol] 104 mg/dL 74 - 109 [...] (Bld) [#/Vol] 0.07 10*3/uL Normal 0.00-0.20 [facility] Comment on above: Performed By: #### 8 2948 #### NURSING GLUCOSE PROGRAM [address] [place], [address] Basophils/100 WBC (Bld) 0.4 % Normal <=1.9 [facility] Comment on above: Performed By: #### 8 2948 #### NURSING GLUCOSE PROGRAM [address] [place], [address] Eosinophils (Bld) [#/Vol] 0.01 10*3/uL Normal 0.00-0.70 [facility] Comment on above: Performed By: #### 8 2948 #### NURSING GLUCOSE PROGRAM [address] [place], [address] Eosinophils/100 WBC (Bld) 0.0 % Low 0.1-4.0 [facility] Comment on above: Performed By: #### 8 2948 #### NURSING GLUCOSE PROGRAM [address] [place], [address] Erythrocyte distribution width (RBC) [Ratio] 15.6 % High 11.5-14.5 [facility] Comment on above: Performed By: #### 8 2948 #### NURSING GLUCOSE PROGRAM [address] [place], [address] Hematocrit (Bld) [Volume fraction] 37.4 % Low 41.0-53.0 [facility] Comment on above: Performed By: #### 8 2948 #### NURSING GLUCOSE PROGRAM [address] [place], [address] Hemoglobin (Bld) [Mass/Vol] 12.4 g/dL Low 13.9-16.3 [facility] Comment on above: Performed By: #### 8 2948 #### NURSING GLUCOSE PROGRAM [address] [place], [address] Lymphocytes (Bld) [#/Vol] 2.30 10*3/uL Normal 1.00-4.80 [facility] Comment on above: Performed By: #### 8 2948 #### NURSING GLUCOSE PROGRAM [address] [place], [address] Lymphocytes/100 WBC (Bld) 12.9 % Low 24.0-44.0 [facility] Comment on above: Performed By: #### 8 2948 #### NURSING GLUCOSE PROGRAM [address] [place], [address] MCH (RBC) [Entitic mass] 29.1 pg Normal 26.0-34.0 [facility] Comment on above: Performed By: #### 8 2948 #### NURSING GLUCOSE PROGRAM [address] [place], [address] MCHC (RBC) [Mass/Vol] 33.2 g/dL Normal 32.0-35.9 [facility] Comment on above: Performed By: #### 8 2948 #### NURSING GLUCOSE PROGRAM [address] [place] [address], [address] MCV (RBC) [Entitic vol] 88 fL Normal 80-100 T [facility] Comment on above: Performed By: #### 8 2948 #### NURSING GLUCOSE PROGRAM [address] [place] [address], [address] Monocytes (Bld) [#/Vol] 1.39 10*3/uL High 0.20-1.00 [facility] Comment on above: Performed By: #### 8 2948 #### NURSING GLUCOSE PROGRAM [address] [place] [address], [address] Monocytes/100 WBC (Bld) 7.8 % Normal 2.0-11.0 [facility] Comment on above: Performed By: #### 8 2948 #### NURSING GLUCOSE PROGRAM [address] [place] [address], [address] Neutrophils (Bld) [#/Vol] 13.98 10*3/uL High 1.50-8.00 [facility] Comment on above: Performed By: #### 8 2948 #### NURSING GLUCOSE PROGRAM [address] [place] [address], [address] Neutrophils/100 WBC (Bld) 78.8 % High 31.0-76.0 [facility] Comment on above: Performed By: #### 8 2948 #### NURSING GLUCOSE PROGRAM [address] [place], [address] Platelet mean volume (Bld) [Entitic vol] 7.4 fL Low 7.5-11.2 [facility] Comment on above: Performed By: #### 8 2948 #### NURSING GLUCOSE PROGRAM [address] [place] [address], [address] Platelets (Bld) [#/Vol] 306 10*3/uL Normal 150-400 [facility] Comment on above: Performed By: #### 8 2948 #### NURSING GLUCOSE PROGRAM [address] [place], [address] RBC (Bld) [#/Vol] 4.27 10*6/uL Low 4.50-5.90 [facility] Comment on above: Performed By: #### 8 2948 #### NURSING GLUCOSE PROGRAM [address] [place], [address] WBC (Bld) [#/Vol] 17.7 10*3/uL High 4.5-11.5 [facility] Comment on above: Performed By: #### 8 2948 #### NURSING GLUCOSE PROGRAM [address] [place], [address] Care Plan Noteon 10-26-2024 Supervisor Cytogenetic Laboratory Authentication Interface Message Text EXERCISE OXIMETRY: = [...] was 94%. Aura Wagner MD Normal [facility] MAGNESIUMon 10-26-2024 Interpretation and review of laboratory results Normal [facility] Magnesium [Mass/Vol] 2.3 mg/dL 1.9 - 2 .7 mg/dL [facility] Magnesium [Mass/Vol] 2.3 mg/dL Normal 1.9-2.7 [facility] Comment on above: Performed By: #### M GABINO Stroud8 ####[facility] [id number] [place], [address] No Panel Informationon 10-26 [facility] Progress Noteson 10-26-2024 Supervisor Cytogenetic Laboratory Authentication Interface Message Text A walking pulse [...] bedside for transport at discharge, please call [employer] at [phone] (Available 08/02). Pt has been cleared to dc home with recs for OP Pulm Rehab. SW will follow for appropriate dc planning. JERRY Norris, [facility] Inpatient Aircraft Sheet Metal Mechanic Normal [facility] Supervisor Cytogenetic Laboratory Authentication Interface Message Text Stepdown Unit ATTENDING NOTE AURA WAGNER MD - PIN [id number] I saw and evaluated the patient. I [...] Medicine [facility] Normal [facility] Supervisor Cytogenetic Laboratory Authentication Interface Message Text [facility] Step Down Unit - H AND P Elis Bills Age [age] year old male ROOM: [place] [address]/ Admitted 10/24/2024 7:57 PM Hospital Day: 2 [...] Ox3 Skin: Warm AND dry. Recent Labs 10/24/24212610/25/24 0052 10/26/24 0001 NA 134* 136 136 K 4.5 [...] 94 TBIL 0.6 DBIL 0.14 Recent Labs 10/24/247 ALBUMIN 4.2 72HR Labs - Updated 10/26/2024 [...] 3.92 FEF50/FIF50 0.41 90-100 FIVC (L) 2.62 ZUB46-01 (L/sec) 0.90 1.20 2.56 4.44 35 Time [...] trapping, normal TLC. Normal FEV1/FVC but low WFE86-55. Chest CT with multiple sub<6mm lung nodules. No mediastinal LAD. Airway wall thickening. - home: albuterol, breztri, pulmicort, singulair Dx: asthma vs COPD vs ADHF - prior echo from (more content not included)... Normal [facility] BASIC METABOLIC PANELon 04-0 Anion gap [Moles/Vol] 15 mmol/L Normal 10-20 [facility] Comment on above: Performed By: #### C H8, MG #### [facility] [address] [place] [address], Calcium [Mass/Vol] 9.0 mg/dL Normal 8.6-10.3 [facility] Comment on above: Performed By: #### C H8, MG #### [facility] [address] [place] [address], Chloride [Moles/Vol] 98 mmol/L Normal 98-107 [facility] Comment on above: Performed By: #### C H8, MG #### [facility] [address] [place] [address], CO2 [Moles/Vol] 27 mmol/L Normal 21-31 [facility] Comment on above: Performed By: #### C H8, MG #### [facility] [address] [place] [address], Creatinine [Mass/Vol] 0.90 mg/dL Normal 0.70-1.30 [facility] Comment on above: Performed By: #### C H8, MG #### [facility] [address] [place] [address], ESTIMATED GFR (CKD-EPI) 95 mL/min/1.73sqm Normal >=60 [facility] Comment on above: Result Comment: 2020 [...] Inclusion of Race in Diagnosing Kidney Disease. [place] Journal of Kidney Diseases 2021;79(2):268-88.e1. 2. N Engl J Med 1 Vol. 385 Issue 19 Pages 2504-4191 Performed By: #### C H8, MG #### S PATHOLOGY LABORATORY [address] [place] [address], Glucose [Mass/Vol] 130 mg/dL High 74-[address] [facility] Comment on above: Performed By: #### C H8, MG #### S PATHOLOGY LABORATORY [address] [place] [address], Potassium [Moles/Vol] 4.0 mmol/L Normal 3.5-5.0 [facility] Comment on above: Performed By: #### C H8, MG #### S PATHOLOGY LABORATORY [address] [place] [address], Sodium [Moles/Vol] 136 mmol/L Normal 136-[address] [facility] [facility] Comment on above: Performed By: #### C H8, MG #### S PATHOLOGY LABORATORY [address] [place] [address], Urea nitrogen [Mass/Vol] 14 mg/dL Normal 7-25 [facility] Comment on above: Performed By: #### C H8, MG #### S PATHOLOGY LABORATORY [address] [place] [address], Basic metabolic 2000 panelon 10-25-2024 Anion gap [Moles/Vol] 15 mmol/L 10 - 20 [facility] Calcium [Mass/Vol] 9 mg/dL 8.6 - 10. [...] Inclusion of Race in Diagnosing Kidney Disease. [place] Journal of Kidney Diseases 2021;79(2):268-88.e1. 2. N Engl J Med 1 Vol. 385 Issue 19 Pages 5791-6519 Glucose [Mass/Vol] 130 mg/dL High 74 - [...] (Bld) [#/Vol] 0.18 10*3/uL Normal 0.00-0.20 [facility] Comment on above: Performed By: #### 8 3565 #### NURSING GLUCOSE PROGRAM [address] [place] [address], [address] Basophils/100 WBC (Bld) 1.1 % Normal <=1.9 T he [facility] Comment on above: Performed By: #### 1 0828 #### NURSING GLUCOSE PROGRAM [address] [place] [address] [place], [address] Eosinophils (Bld) [#/Vol] 0.00 10*3/uL Normal 0.00-0.70 [facility] Comment on above: Performed By: #### 8 2948 #### NURSING GLUCOSE PROGRAM [address] [place], [address] Eosinophils/100 WBC (Bld) 0.0 % Low 0.1-4.0 [facility] Comment on above: Performed By: #### 8 8198 #### NURSING GLUCOSE PROGRAM [address] [place] [address], [address] Erythrocyte distribution width (RBC) [Ratio] 15.9 % High 11.5-14.5 [facility] Comment on above: Performed By: #### 8 7338 #### NURSING GLUCOSE PROGRAM [address] [place] [address], [address] Hematocrit (Bld) [Volume fraction] 35.9 % Low 41.0-53.0 [facility] Comment on above: Performed By: #### 8 9898 #### NURSING GLUCOSE PROGRAM [address] [place] [address], [address] Hemoglobin (Bld) [Mass/Vol] 12.2 g/dL Low 13.9-16.3 [facility] Comment on above: Performed By: #### 8 1918 #### NURSING GLUCOSE PROGRAM [address] [place] [address], [address] Lymphocytes (Bld) [#/Vol] 0.80 10*3/uL Low 1.00-4.80 [facility] Comment on above: Performed By: #### 8 7478 #### NURSING GLUCOSE PROGRAM [address] [place] [address], [address] Lymphocytes/100 WBC (Bld) 5.0 % Low 24.0-44.0 [facility] Comment on above: Performed By: #### 8 4911 #### NURSING GLUCOSE PROGRAM [address] [place] [address], [address] MCH (RBC) [Entitic mass] 29.7 pg Normal 26.0-34.0 [facility] Comment on above: Performed By: #### 8 5656 #### NURSING GLUCOSE PROGRAM [address] [place] [address], [address] MCHC (RBC) [Mass/Vol] 34.0 g/dL Normal 32.0-35.9 [facility] Comment on above: Performed By: #### 8 2948 #### NURSING GLUCOSE PROGRAM [address] [place], [address] MCV (RBC) [Entitic vol] 88 fL Normal 80-100 [facility] Comment on above: Performed By: #### 8 2948 #### NURSING GLUCOSE PROGRAM [address] [place], [address] Monocytes (Bld) [#/Vol] 0.75 10*3/uL Normal 0.20-1.00 [facility] Comment on above: Performed By: #### 8 2948 #### NURSING GLUCOSE PROGRAM [address] [place], [address] Monocytes/100 WBC (Bld) 4.7 % Normal 2.0-11.0 [facility] Comment on above: Performed By: #### 8 2948 #### NURSING GLUCOSE PROGRAM [address] [place] [address], [address] Neutrophils (Bld) [#/Vol] 14.28 10*3/uL High 1.50-8.00 [facility] Comment on above: Performed By: #### 8 2948 #### NURSING GLUCOSE PROGRAM [address] [place], [address] Neutrophils/100 WBC (Bld) 89.2 % High 31.0-76.0 [facility] Comment on above: Performed By: #### 8 2948 #### NURSING GLUCOSE PROGRAM [address] [place], [address] Platelet mean volume (Bld) [Entitic vol] 7.5 fL Normal 7.5-11.2 [facility] Comment on above: Performed By: #### 8 2948 #### NURSING GLUCOSE PROGRAM [address] [place], [address] Platelets (Bld) [#/Vol] 277 10*3/uL Normal 150-400 [facility] Comment on above: Performed By: #### 8 2948 #### NURSING GLUCOSE PROGRAM [address] [place], [address] RBC (Bld) [#/Vol] 4.10 10*6/uL Low 4.50-5.90 [facility] Comment on above: Performed By: #### 8 2948 #### NURSING GLUCOSE PROGRAM [address] [facility] [place], [address] WBC (Bld) [#/Vol] 16.0 10*3/uL High 4.5-11.5 [facility] Comment on above: Performed By: #### 8 2948 #### NURSING GLUCOSE PROGRAM [address] [facility] [place], [address] Consultson 10-25-2024 Supervisor Cytogenetic Laboratory Authentication Interface Message Text SW is aware of consult for substance use resources. Pt declines substance use issues and states he does not need resources. Rena Thorne, EDITHA, LEGISLATIVE AIDE Inpatient Aircraft Sheet Metal Mechanic Normal [facility] Diabetes tracking panelOrder ed By: Deni Clark on 10-25-2024 Average glucose Estimated from glycated hemoglobin (Bld) [Mass/Vol] 117 mg/dL [facility] HbA1c (Bld) [Mass fraction] 5.7 % High 4.0 - 5.6 % [facility] Interpretation and review of laboratory results Abnormal [facility] H AND Pepe 10-25-2024 Supervisor Cytogenetic Laboratory Authentication Interface Message Text Stepdown Unit ATTENDING NOTE AURA WAGNER MD - PIN [id number] I saw and evaluated the patient. I [...] Medicine [facility] Normal [facility] Supervisor Cytogenetic Laboratory Authentication Interface Message Text [facility] Step Down Unit - H AND P Elis Bills Age [age] year old male ROOM: [facility]412/1 Admitted 10/24/2024 7:57 PM Hospital Day: 2 [...] at 10/25/2024 0653 Last data filed at 10/25/20245 Gross per 24 hour Intake -- Output [...] 8.2 (more content not included)... Normal [facility] MAGNESIUMon 10-25-2024 Interpretation and review of laboratory results Normal [facility] Magnesium [Mass/Vol] 2.2 mg/dL 1.9 - 2 .7 mg/dL [facility] Magnesium [Mass/Vol] 2.2 mg/dL Normal 1.9-2.7 [facility] Comment on above: Performed By: #### C H8, MG #### [facility] [address] [place] [address], [phone] No Panel Informationon 10-25 [facility] Procedureson 10-25-2024 Supervisor Cytogenetic Laboratory Authentication Interface Message Text Transthoracic Echocardiographic Report Name: SANJU GILLIS Physician: : [id number] Referring ROXIE MONTGOMERY MD Physician: Age: 64 Petrologist: Keyona Avendano RDCS Exam Date: 10/25/2024 Fellow: [...] Doctor's order(s) verified. Patient's preferred language is Beninese . Verbal consent for left heart echo contrast was obtained after explanation of the risks (07/28,000 significant and 13,000 minor allergic reactions) and [...] 10/25/2024 11:29 AM Invalid Interpretation Code [facility] RESPIRATORY CULTURE, MISCon 10-25-2024 RESPIRATORY CULTURE, MISC MRSA: Methicillin-Resistant Staphylococcus aureus NOT detected by chromagar screen. C RESP: Isolates consistent with microorganisms encountered in the upper respiratory tract GRAM STAIN: 4+ Polymorphonuclear Leukocytes 2+ Squamous Epithelial Cells 2+ Gram Positive Cocci In Pairs Normal [facility] Comment on above: Performed By: #### C RESP ####[facility] [address] [place], [place] [facility] 10-24-2024 [facility] HNO ID: [id number] Author: ROSE VICTORIA RT(R) Service: Radiology Author Type: [employer] Founder Type: Allied Health Filed: 10/24/2024 11:35 Note Text: Radiology [...] PATIENT PRESENTS WITH AN IMPLANTABLE OR ATTACHED BUCKLE SEWER: No ALLERGIES: Reviewed and unchanged CONTRAST ALLERGY: [...] CT; Exam(s) Completed: PE Study SIGNATURE: RT Chasity(Saud) PATIENT NAME: Elis Bills DATE: October 24, 2024 TIME: 11:35 AM Normal [facility] HNO ID: [id number] Author: DEVANG WATTS RT(Saud) Service: ? Author Type: Technologist Type: Allied [...] PATIENT PRESENTS WITH AN IMPLANTABLE OR ATTACHED BUCKLE SEWER: No RADIOLOGY DEPARTMENT: General X-ray: Exam(s) Completed: Chest X-Ray PERIPHERAL IV DATA: Not applicable SIGNED BY: RT Lance(Saud) October 24, 2024 10:21 AM Normal [facility] BASIC METABOLIC PANELon 04-0 Anion gap [Moles/Vol] 16 mmol/L Normal 10-20 [facility] Comment on above: Performed By: #### Socorro Stroud HEPATIC, CH8 #### [facility] [address] [place] [address], Calcium [Mass/Vol] 9.2 mg/dL Normal 8.6-10.3 [facility] Comment on above: Performed By: #### Socorro Stroud HEPATIC, CH8 #### [facility] [address] [place] [address], Chloride [Moles/Vol] 98 mmol/L Normal 98-107 [facility] Comment on above: Performed By: #### Socorro Stroud HEPATIC, CH8 #### [facility] [address] [place] [address], CO2 [Moles/Vol] 25 mmol/L Normal 21-31 [facility] Comment on above: Performed By: #### Socorro Stroud HEPATIC, CH8 #### S PATHOLOGY LABORATORY [address] [place] [address], Creatinine [Mass/Vol] 0.87 mg/dL Normal 0.70-1.30 [facility] Comment on above: Performed By: #### Socorro Stroud HEPATIC, CH8 #### S PATHOLOGY LABORATORY [address] [place] [address], ESTIMATED GFR (CKD-EPI) 96 mL/min/1.73sqm Normal >=60 [facility] Comment on above: Result Comment: 2020 [...] Inclusion of Race in Diagnosing Kidney Disease. [place] Journal of Kidney Diseases 202;79(2):268-88.e1. 2. N Engl J Med 1 Vol. 385 Issue 19 Pages 7319-1270 Performed By: #### Socorro Srtoud HEPATIC, CH8 #### [facility] [address] [place], [place], Glucose [Mass/Vol] 140 mg/dL High 74-109 [facility] Comment on above: Performed By: #### Socorro Stroud HEPATIC, CH8 #### [facility] [address] [place], [place], Potassium [Moles/Vol] 4.5 mmol/L Normal 3.5-5.0 [facility] Comment on above: Performed By: #### Socorro Stroud HEPATIC, CH8 #### S PATHOLOGY LABORATORY [address] [place], [place], Sodium [Moles/Vol] 134 mmol/L Low 136-145 [facility] Comment on above: Performed By: #### Socorro Stroud HEPATIC, CH8 #### S PATHOLOGY LABORATORY [address] [place] [address], Urea nitrogen [Mass/Vol] 13 mg/dL Normal 7-25 [facility] Comment on above: Performed By: #### Socorro Stroud, HEPATIC, CH8 #### [facility] [address] [place] [address], BLOOD GAS, ARTERIALOrdered B y: Shaneka Finn [...] Comment on above: Performed By: #### 8 2948 #### NURSING GLUCOSE PROGRAM [address] [place], [address] CR PCO2 41.3 mm Hg Normal 35.0-45.0 [facility] Comment on above: Performed By: #### 8 2948 #### NURSING GLUCOSE PROGRAM [address] [place], [address] CR PHA 7.393 Normal 7.350-7.450 [facility] Comment on above: Performed By: #### 8 2948 #### NURSING GLUCOSE PROGRAM [address] [place], [address] CR PO2 107 mm Hg High 80-100 [facility] Comment on above: Performed By: #### 8 2948 #### NURSING GLUCOSE PROGRAM [address] [place], [address] FIO2 (CATEGORY) 4 LPM Normal [facility] Comment on above: Performed By: #### 8 2948 #### NURSING GLUCOSE PROGRAM [address] [place], [address] HCO3 (Bld) [Moles/Vol] 25 mmol/L Normal 21-28 Th e [facility] Comment on above: Performed By: #### 8 2948 #### NURSING GLUCOSE PROGRAM [address] [place], [address] MODE Nasal Canula Normal [facility] Comment on above: Performed By: #### 8 2948 #### NURSING GLUCOSE PROGRAM [address] [place], [address] Oxygen saturation in Blood 98.0 % Normal 95.0-99.0 [facility] Comment on above: Performed By: #### 8 2948 #### NURSING GLUCOSE PROGRAM [address] [place], [address] Bacteria Bld Culton 10-25-19 Bacteria identified Cx Nom (Bld) CULTURE, BLOOD: No growth 5 days Normal [facility] Comment on above: Performed By: #### 6 00-7 #### [facility] CLIA [id number] [address] [place] [address] [place] Bacteria Spec Resp Culton Bacteria identified Respiratory culture Nom (Unsp spec) CULTURE, RESPIRATORY: Few Normal respiratory mark present GRAM STAIN: Few Mixed oral mark Moderate Polymorphonuclear leukocytes Rare Epithelial cells Abnormal [facility] Comment on above: Performed By: #### 3 2355-0 #### [facility] CLIA [id number] [address] [place] [address] [place] Basic metabolic 2000 [...] Inclusion of Race in Diagnosing Kidney Disease. [place] Journal of Kidney Diseases 202;79(2):268-88.e1. 2. N Engl J Med 1 Vol. 385 Issue 19 Pages 9972-8922 Glucose [Mass/Vol] 140 mg/dL High 74 - 109 mg/dL [facility] Interpretation and review of laboratory results Abnormal [facility] Potassium [Moles/Vol] 4.5 mmol/L 3.5 - 5.0 mmol/L [facility] Sodium [Moles/Vol] 134 mmol/L Low 136 - 145 mmol/L [facility] Urea nitrogen [Mass/Vol] 13 mg/dL 7 - 25 mg/dL [facility] CBC W Auto Differential pane l (Bld)on 10-24-2024 Basophils (Bld) [#/Vol] 10*3/uL Normal <0.11 [facility] Comment on above: Order Comment: Speci men Type: BLOOD SPECIMENOrdering Facility: [facility] Address: [address] [place] [address] Performed By: #### 3 2355-0 #### [facility] CLIA [id number] [address] Basophils/100 WBC (Bld) 0.1 % Normal A [facility] Comment on above: Order Comment: Speci men Type: BLOOD SPECIMENOrdering Facility: [facility] Address: [facility] [place] [address] Performed By: #### 3 2355-0 #### [facility] CLIA [id number] [address] OF [facility] Differential cell count method Nom (Bld) Auto Normal [facility] Comment on above: Order Comment: Speci men Type: BLOOD SPECIMENOrdering Facility: [facility] Address: [address] [place] [address] Performed By: #### 3 2355-0 #### [facility] CLIA [id number] [address] [place] Eosinophils (Bld) [#/Vol] 10*3/uL Normal <0.46 [facility] Comment on above: Order Comment: Speci men Type: BLOOD SPECIMENOrdering Facility: [facility] Address: [address] [place] [address] Performed By: #### 3 2355-0 #### [facility] CLIA [id number] [address] Eosinophils/100 WBC (Bld) 0.0 % Normal [facility] Comment on above: Order Comment: Speci men Type: BLOOD SPECIMENOrdering Facility: [facility] Address: [address] [place] [address] Performed By: #### 3 2355-0 #### [facility] CLIA [id number] [address] [place] Erythrocyte distribution width (RBC) [Ratio] 15.6 % High 11.5-15.0 [facility] Comment on above: Order Comment: Speci men Type: BLOOD SPECIMENOrdering Facility: [facility] Address: [address] [place] [address] Performed By: #### 3 2355-0 #### [facility] CLIA [id number] [address] [place] Hematocrit (Bld) [Volume fraction] 38.9 % Low 39.0-51.0 [facility] Comment on above: Order Comment: Speci men Type: BLOOD SPECIMENOrdering Facility: [facility] Address: [address] [place] [address] Performed By: #### 3 2355-0 #### [facility] CLIA [id number] [address] [place] Hemoglobin (Bld) [Mass/Vol] 12.9 g/dL Low 13.0-17.0 [facility] Comment on above: Order Comment: Speci men Type: BLOOD SPECIMENOrdering Facility: [facility] Address: [address] [place] [address] Performed By: #### 3 2355-0 #### [facility] CLIA [id number] [address] [place] Immature granulocytes (Bld) [#/Vol] 0.03 10*3/uL Normal <0.10 [facility] Comment on above: Order Comment: Speci men Type: BLOOD SPECIMENOrdering Facility: [facility] Address: [address] [place] [address] Performed By: #### 3 2355-0 #### [facility] CLIA [id number] [address] [place] Immature granulocytes/100 WBC (Bld) 0.2 % Normal [facility] Comment on above: Order Comment: Speci men Type: BLOOD SPECIMENOrdering Facility: [facility] Address: [address] [place] [address] Performed By: #### 3 2355-0 #### [facility] CLIA [id number] [address] [place] Lymphocytes (Bld) [#/Vol] 1.08 10*3/uL Normal 1.00-4.00 [facility] Comment on above: Order Comment: Speci men Type: BLOOD SPECIMENOrdering Facility: [facility] Address: [address] [place] [address] Performed By: #### 3 2355-0 #### [facility] CLIA [id number] [address] Lymphocytes/100 WBC (Bld) 5.8 % Normal [facility] Comment on above: Order Comment: Speci men Type: BLOOD SPECIMENOrdering Facility: [facility] Address: [address] [place] [address] Performed By: #### 3 2355-0 #### [facility] CLIA [id number] [address] MCH (RBC) [Entitic mass] 29.1 pg Normal 26.0-34.0 [facility] Comment on above: Order Comment: Speci men Type: BLOOD SPECIMENOrdering Facility: [facility] Address: [address] [place] [address] Performed By: #### 3 2355-0 #### [facility] CLIA [id number] [address] MCHC (RBC) [Mass/Vol] 33.2 g/dL Normal 30.5-36.0 [facility] Comment on above: Order Comment: Speci men Type: BLOOD SPECIMENOrdering Facility: [facility] Address: [address] [place] [address] Performed By: #### 3 2355-0 #### [facility] CLIA [id number] [address] STATES [facility] MCV (RBC) [Entitic vol] 87.8 fL Normal 80.0-100.0 [facility] Comment on above: Order Comment: Speci men Type: BLOOD SPECIMENOrdering Facility: [facility] Address: [address] [place] [address] Performed By: #### 3 2355-0 #### [facility] CLIA [id number] [address] [place] [address] [place] Monocytes (Bld) [#/Vol] 1.62 10*3/uL High <0.87 [facility] Comment on above: Order Comment: Speci men Type: BLOOD SPECIMENOrdering Facility: [facility] Address: [address] [place] [address] Performed By: #### 3 2355-0 #### [facility] CLIA [id number] [address] [place] Monocytes/100 WBC (Bld) 8.8 % Normal [facility] Comment on above: Order Comment: Speci men Type: BLOOD SPECIMENOrdering Facility: [facility] Address: [address] [place] [address] Performed By: #### 3 2355-0 #### [facility] CLIA [id number] [address] [place] Neutrophils (Bld) [#/Vol] 15.73 10*3/uL High 1.45-7.50 [facility] Comment on above: Order Comment: Speci men Type: BLOOD SPECIMENOrdering Facility: [facility] Address: [address] [place] [address] Performed By: #### 3 2355-0 #### [facility] CLIA [id number] [address] [place] Neutrophils/100 WBC (Bld) 85.1 % Normal [facility] Comment on above: Order Comment: Speci men Type: BLOOD SPECIMENOrdering Facility: [facility] Address: [address] [place] [address] Performed By: #### 3 2355-0 #### [facility] CLIA [id number] [address] [place] [address] [place] Nucleated RBC (Bld) [#/Vol] Normal [facility] Comment on above: Order Comment: Speci men Type: BLOOD SPECIMENOrdering Facility: [facility] Address: [address] [place] [address] Performed By: #### 3 2355-0 #### [facility] CLIA [id number] [address] [place] Nucleated RBC/100 WBC (Bld) [Ratio] Normal [facility] Comment on above: Order Comment: Speci men Type: BLOOD SPECIMENOrdering Facility: [facility] Address: [address] [place] [address] Performed By: #### 3 2355-0 #### [facility] CLIA [id number] [address] [place] Platelet mean volume (Bld) [Entitic vol] 9.2 fL Normal 9.0-12.7 [facility] Comment on above: Order Comment: Speci men Type: BLOOD SPECIMENOrdering Facility: [facility] Address: [address] [place] [address] Performed By: #### 3 2355-0 #### [facility] CLIA [id number] [address] [place] Platelets (Bld) [#/Vol] 276 10*3/uL Normal 150-400 [facility] Comment on above: Order Comment: Speci men Type: BLOOD SPECIMENOrdering Facility: [facility] Address: [address] [place] [address] Performed By: #### 3 2355-0 #### [facility] CLIA [id number] [address] [place] RBC (Bld) [#/Vol] 4.43 10*6/uL Normal 4.20-6.00 [facility] Comment on above: Order Comment: Speci men Type: BLOOD SPECIMENOrdering Facility: [facility] Address: [address] [place] [address] Performed By: #### 3 2355-0 #### [facility] CLIA [id number] [address] [place] WBC (Bld) [#/Vol] 18.48 10*3/uL High 3.70-11.00 [facility] Comment on above: Order Comment: Speci men Type: BLOOD SPECIMENOrdering Facility: [facility] Address: [address] [place] [address] Performed By: #### 3 2355-0 #### [facility] CLIA [id number] 1 [place] [address] [place] [facility] CBC WITH DIFFERENTIALon Basophils (Bld) [...] (Bld) [#/Vol] 0.05 10*3/uL Normal 0.00-0.20 [facility] Comment on above: Performed By: #### 8 2948 #### NURSING GLUCOSE PROGRAM [address] [place], [address] Basophils/100 WBC (Bld) 0.3 % Normal <=1.9 T he [facility] Comment on above: Performed By: #### 8 3564 #### NURSING GLUCOSE PROGRAM [address] [place], [address] Eosinophils (Bld) [#/Vol] 0.00 10*3/uL Normal 0.00-0.70 [facility] Comment on above: Performed By: #### 8 0646 #### NURSING GLUCOSE PROGRAM [address] [place], [address] Eosinophils/100 WBC (Bld) 0.0 % Low 0.1-4.0 [facility] Comment on above: Performed By: #### 8 8528 #### NURSING GLUCOSE PROGRAM [address] [place], [address] Erythrocyte distribution width (RBC) [Ratio] 15.8 % High 11.5-14.5 [facility] Comment on above: Performed By: #### 8 6928 #### NURSING GLUCOSE PROGRAM [address] [place], [address] Hematocrit (Bld) [Volume fraction] 36.3 % Low 41.0-53.0 [facility] Comment on above: Performed By: #### 8 2949 #### NURSING GLUCOSE PROGRAM [address] [place], [address] Hemoglobin (Bld) [Mass/Vol] 12.3 g/dL Low 13.9-16.3 [facility] Comment on above: Performed By: #### 8 2208 #### NURSING GLUCOSE PROGRAM [address] [place], [address] Lymphocytes (Bld) [#/Vol] 0.57 10*3/uL Low 1.00-4.80 [facility] Comment on above: Performed By: #### 8 2948 #### NURSING GLUCOSE PROGRAM [address] [place], [address] Lymphocytes/100 WBC (Bld) 3.4 % Low 24.0-44.0 [facility] Comment on above: Performed By: #### 8 2948 #### NURSING GLUCOSE PROGRAM [address] [place] [address], [address] MCH (RBC) [Entitic mass] 29.4 pg Normal 26.0-34.0 [facility] Comment on above: Performed By: #### 8 2948 #### NURSING GLUCOSE PROGRAM [address] [place] [address], [address] MCHC (RBC) [Mass/Vol] 33.8 g/dL Normal 32.0-35.9 [facility] Comment on above: Performed By: #### 8 2948 #### NURSING GLUCOSE PROGRAM [address] [place] [address], [address] MCV (RBC) [Entitic vol] 87 fL Normal 80-100 [facility] Comment on above: Performed By: #### 8 2948 #### NURSING GLUCOSE PROGRAM [address] [place] [address], [address] Monocytes (Bld) [#/Vol] 0.49 10*3/uL Normal 0.20-1.00 [facility] Comment on above: Performed By: #### 8 2948 #### NURSING GLUCOSE PROGRAM [address] [place], [address] Monocytes/100 WBC (Bld) 2.9 % Normal 2.0-11.0 [facility] Comment on above: Performed By: #### 8 2948 #### NURSING GLUCOSE PROGRAM [address] [place], [address] Neutrophils (Bld) [#/Vol] 15.64 10*3/uL High 1.50-8.00 [facility] Comment on above: Performed By: #### 8 2948 #### NURSING GLUCOSE PROGRAM [address] [place] [address], [address] Neutrophils/100 WBC (Bld) 93.4 % High 31.0-76.0 [facility] Comment on above: Performed By: #### 8 2948 #### NURSING GLUCOSE PROGRAM [address] [place], [address] Platelet mean volume (Bld) [Entitic vol] 7.5 fL Normal 7.5-11.2 [facility] Comment on above: Performed By: #### 8 2948 #### NURSING GLUCOSE PROGRAM [address] [place], [address] Platelets (Bld) [#/Vol] 266 10*3/uL Normal 150-400 [facility] Comment on above: Performed By: #### 8 2948 #### NURSING GLUCOSE PROGRAM [address] [place], [address] RBC (Bld) [#/Vol] 4.18 10*6/uL Low 4.50-5.90 [facility] [employer] [facility] Comment on above: Performed By: #### 8 2948 #### NURSING GLUCOSE PROGRAM [address] [place], [address] WBC (Bld) [#/Vol] 16.7 10*3/uL High 4.5-11.5 [facility] [employer] [facility] Comment on above: Performed By: #### 8 2948 #### NURSING GLUCOSE PROGRAM [address] [place], [address] CTA CHEST (NON GATED) W IVCO N [...] Mediastinal and bilateral hilar adenopathy, new finding Financial Aid Administrator: PSCB Transcribe Date/Time: Oct 24 2024 11:51A Dictated by : AFTAB MARTINEZ MD This examination was interpreted and the report reviewed and electronically signed by: AFTAB MARTINEZ MD on Oct 24 2024 11:56AM EST [id number] N Normal [facility] Comprehensive metabolic 2000 panelon 10-24-2024 Albumin [Mass/Vol] 4.1 g/dL Normal 3.9-4.9 [facility] Comment on above: Order Comment: Speci men Type: BLOOD SPECIMENOrdering Facility: [facility] Address: [address] [place] [address] Performed By: #### 2 4323-8, 32553-8, 04670-8 ####[facility] [place] LABCLIA [id number] [place] [address] [place] [facility] ALP [Catalytic activity/Vol] 115 U/L High 38-113 [facility] Comment on above: Order Comment: Speci men Type: BLOOD SPECIMENOrdering Facility: [facility] Address: [address] [place] [address] Performed By: #### 2 4323-8, , 83762-2 ####[facility] [place] LABCLIA [id number] [facility] [place] [address] [place] [facility] ALT With P-5'-P [Catalytic activity/Vol] 19 U/L Normal 10-54 [facility] Comment on above: Order Comment: Speci men Type: BLOOD SPECIMENOrdering Facility: [facility] Address: [address] [place] [address] Performed By: #### 2 4323-8, , 88901-5 ####[facility] [place] LABCLIA [id number] [facility] [address] [place] [facility] Anion gap [Moles/Vol] 14 mmol/L Normal 8-15 [facility] Comment on above: Order Comment: Speci men Type: BLOOD SPECIMENOrdering Facility: [facility] Address: [address] [place] [address] Performed By: #### 2 4323-8, 51825-3, 64159-6 ####[facility] [place] LABCLIA [id number] [facility] [place] [address] [place] AST With P-5'-P [Catalytic activity/Vol] 16 U/L Normal 14-40 [facility] Comment on above: Order Comment: Speci men Type: BLOOD SPECIMENOrdering Facility: [facility] Address: [address] [place] [address] Performed By: #### 2 4323-8, 00524-3, 44809-9 ####[facility] [place] LABCLIA [id number] [place] [address] [place] Bilirubin [Mass/Vol] 0.8 mg/dL Normal 0.2-1.3 [facility] Comment on above: Order Comment: Speci men Type: BLOOD SPECIMENOrdering Facility: [facility] Address: [address] [place], [place] [address] Performed By: #### 2 4323-8, , 98310-8 ####[facility] [place] LABCLIA [id number] [place] [address] [place] Calcium [Mass/Vol] 9.5 mg/dL Normal 8.5-10.2 [facility] Comment on above: Order Comment: Speci men Type: BLOOD SPECIMENOrdering Facility: [facility] Address: [address] [place], [place] [address] Performed By: #### 2 4323-8, , 86030-0 ####[facility] LABCLIA [id number] [place] [address] [place] Chloride [Moles/Vol] 96 mmol/L Low 98-107 [facility] Comment on above: Order Comment: Speci men Type: BLOOD SPECIMENOrdering Facility: [facility] Address: [address] [place], [place] [address] Performed By: #### 2 4323-8, 32533-5, 25838-0 ####[facility] [place] LABCLIA [id number] [place] [address] [place] CO2 [Moles/Vol] 23 mmol/L Normal 22-30 [facility] Comment on above: Order Comment: Speci men Type: BLOOD SPECIMENOrdering Facility: [facility] Address: [address] [place], [place] [address] Performed By: #### 2 4323-8, 52171-2, 87192-5 ####[facility] LABCLIA [id number] [place] [address] [place] [facility] Creatinine [Mass/Vol] 0.89 mg/dL Normal 0.73-1.22 [facility] Comment on above: Order Comment: Wilbert torres Type: BLOOD SPECIMENOrdering Facility: [facility] Address: [address] [place] [address] Performed By: #### 2 4323-8, 32899-5, 22718-3 ####[facility] LABCLIA [id number] [place] [address] [facility] Creatinine and Glomerular filtration rate.predicted panel (S/P/Bld) 95 mL/min/1.73m??? Normal >=60 [facility] Comment on above: Order Comment: [facility] Type: BLOOD SPECIMENOrdering Facility: [facility] Address: [address] [place] [address] Result Comment: Lala mated Glomerular Filtration Rate [...] actual GFR. Performed By: #### 2 4323-8, 32137-7, 32663-9 ####[facility] LABCLIA [id number] [place] [address] [place] [facility] Glucose [Mass/Vol] 117 mg/dL High 74-99 [facility] Comment on above: Order Comment: Karthikeyani brian Type: BLOOD SPECIMENOrdering Facility: [facility] Address: [address] [place] [address] Result Comment: The [place] Diabetes Association (ADA) provides guidance for cutoff [...] Standards of Medical Care in Diabetes 2016, [place] [employer] Association. Diabetes Care. 2016.39(Suppl 1). Performed By: #### 2 4323-8, 00103-0, 77788-4 ####[facility] LABCLIA [id number] [place] [address] [place] Potassium [Moles/Vol] 4.1 mmol/L Normal 3.7-5.1 [facility] Comment on above: Order Comment: Wilbert torres Type: BLOOD SPECIMENOrdering Facility: [facility] Address: [address] [place] [address] Performed By: #### 2 4323-8, , 45906-0 ####[facility] LABCLIA [id number] [place] [address] [place] Protein [Mass/Vol] 7.5 g/dL Normal 6.3-8.0 [facility] Comment on above: Order Comment: Wilbert torres Type: BLOOD SPECIMENOrdering Facility: [facility] Address: [address] [place] [address] Performed By: #### 2 4323-8, , 27872-6 ####[facility] LABCLIA [id number] [place] [address] [place] Sodium [Moles/Vol] 133 mmol/L Low 136-144 [facility] Comment on above: Order Comment: Wilbert torres Type: BLOOD SPECIMENOrdering Facility: [facility] Address: [address] [place] [address] Performed By: #### 2 4323-8, 91792-5, 17637-2 ####[facility] LABCLIA [id number] [place] [address] [place] Urea nitrogen [Mass/Vol] 13 mg/dL Normal 9-24 [facility] Comment on above: Order Comment: Speci men Type: BLOOD SPECIMENOrdering Facility: [facility] Address: [facility] [place] [id number] Performed By: #### 2 4323-8, 10206-4, 39034-1 ####[facility] [place] LABCLIA [id number] [place] [address] [facility] ECG COMPLETEon 10-24-2024 ECG COMPLETE Ventricular Rate : 9 3 BPM Atrial Rate : 93 BPM P-R Interval : 134 ms QRS Duration : 122 ms Q-T Interval : 388 ms QTC Calculation(Bazett) : 482 ms Calculated P Rhine : 45 degrees Calculated R Rhine : 71 degrees Calculated T Rhine : 26 degrees SINUS RHYTHM WITH OCCASIONAL PREMATURE VENTRICULAR COMPLEXES RIGHT BUNDLE BRANCH BLOCK ABNORMAL ECG WHEN COMPARED WITH ECG OF 14-Jul-2024 13:13, PREMATURE VENTRICULAR COMPLEXES ARE NOW PRESENT Confirmed by MD SUAREZ VINAYAK ([id number]) on 10/25/2024 2:19:53 PM NAME : ELIS BILLS PID : [id number] : 1960 Gender : Male Race : ORD : [id number] Procedure Date : Oct 24 2024 09:16:43 Edit Date : Oct 25 2024 14:19:54 Diagnosis: SINUS RHYTHM WITH OCCASIONAL PREMATURE VENTRICULAR COMPLEXES RIGHT BUNDLE BRANCH BLOCK ABNORMAL ECG WHEN COMPARED WITH ECG OF 14-Jul-2024 13:13, PREMATURE VENTRICULAR COMPLEXES ARE NOW PRESENT Confirmed by MD SUAREZ VINAYAK ([id number]) on 10/25/2024 2:19:53 PM Test Reason : Chest Pain Location : 191 : [facility] ED Overread By : MD SUAREZ VINAYAK Edited By : MD SUAREZ VINAYAK Referred By : , Acquired by : DAREN RUCKER [facility] ED NOTEon 10-24-2024 ED NOTE HNO ID: [id number] Author: JORGE JONES, RN Service: Nursing Author Type: Registered Nurse Type: ED Notes Filed: 10/24/2024 18:22 Note Text: Patient leaves ED with [facility]. [facility] ED NOTE HNO ID: [id number] Author: JORGE JONES, NEENA Service: Nursing Author Type: Registered Nurse Type: ED Notes Filed: 10/24/2024 18:15 Note Text: at bedside with patient and EMS. [facility] ED NOTE HNO ID: [id number] Author: JORGE JONES RN Service: Nursing Author Type: Registered Nurse Type: ED Notes Filed: 10/24/2024 18:14 Note Text: [facility] remains in room with patient on their monitor. They are transferring patient to EMS BiPAP. [facility] ED NOTE HNO ID: [id number] Author: JORGE JONES RN Service: Nursing Author Type: Registered Nurse Type: ED Notes Filed: 10/24/2024 16:52 Note Text: [facility] ETA 45-60 minutes [facility] ED NOTE HNO ID: [id number] Author: YOVANY JULIEN RN Service: ? Author Type: Registered Nurse Type: ED Notes Filed: 10/24/2024 16:51 Note Text: Bed assignment [address] bed 412 Report [phone] [facility] ED NOTE HNO ID: [id number] Author: JORGE JONES RN Service: Nursing Author Type: Registered Nurse Type: ED Notes Filed: 10/24/2024 16:20 Note Text: Patient removed from bi pap for a demanded break. Nasal canula at 6L applied. aware. Respiratory therapy remains at bedside during the break from BiPap. [facility] ED NOTE HNO ID: [id number] Author: JORGE JONES RN Service: Nursing Author Type: Registered Nurse Type: ED Notes Filed: 10/24/2024 14:19 Note Text: BiPAP removed per patient demands. Nasal Canula reapplied. [facility] ED NOTE HNO ID: [id number] Author: JORGE JONES RN Service: Nursing Author Type: Registered Nurse Type: ED Notes Filed: 10/24/2024 13:50 Note Text: Patient has asked twice to have BiPap removed. This RN discussed patients request with and Respiratory therapy. They will discuss with patient as well as this RN. [facility] ED NOTE HNO ID: [id number] Author: JORGE JONES RN Service: Nursing Author Type: Registered Nurse Type: ED Notes Filed: 10/24/2024 13:35 Note Text: accepts patient at [facility]. Will call back with bed assignment. [facility] ED NOTE HNO ID: [id number] Author: JORGE JONES RN Service: Nursing Author [...] spouse has had ear pain and congestion. [facility] ED NOTE HNO ID: [id number] Author: JORGE JONES RN Service: Nursing Author Type: Registered Nurse Type: ED Notes Filed: 10/24/2024 18:09 Note Text: EMS AT BEDSIDE [facility] ED PROV NOTEon 10-24-2024 ED PROV NOTE HNO ID: [id number] Author: BRIAN ANGLIN MD Service: Emergency Medicine [...] Date - COPD (chronic obstructive pulmonary disease) ([facility]) - Hypercholesteremia - Lung nodules - Spinal stenosis of lumbar region with neurogenic claudication - Stroke ([facility]) - Unspecified right bundle-branch block PAST SURGICAL [...] symptoms. Pat (more content not included)... Normal [facility] HEMOGLOBIN A1Con 10-24-2024 Glucose [Mass/Vol] 117 mg/dL Normal [facility] Comment on above: Performed By: #### 8 5888 #### NURSING GLUCOSE PROGRAM [address] [place], [address] HbA1c (Bld) [Mass fraction] 5.7 % High 4.0-5.6 [facility] Comment on above: Performed By: #### 8 1228 #### NURSING GLUCOSE PROGRAM [address] [place], [address] HEPATIC FUNCTION PANELon Albumin [Mass/Vol] 4.2 g/dL [...] Albumin [Mass/Vol] 4.2 g/dL Normal 3.5-5.7 [facility] Comment on above: Performed By: #### Socorro Stroud, HEPATIC, CH8 #### S PATHOLOGY LABORATORY [address] [place] [address], ALK 94 IU/L Normal 34-104 [facility] Comment on above: Performed By: #### Socorro Stroud, HEPATIC, CH8 #### S PATHOLOGY LABORATORY [address] [place] [address], ALT [Catalytic activity/Vol] 19 U/L Normal 7-52 [facility] Comment on above: Performed By: #### Socorro Stroud, HEPATIC, CH8 #### S PATH[facility] LABORATORY [address] [place] [address], AST [Catalytic activity/Vol] 16 U/L Normal 13-39 [facility] Comment on above: Performed By: #### Socorro Stroud, HEPATIC, CH8 #### S PATHOLOGY LABORATORY [address] [place] [address], Bilirubin [Mass/Vol] 0.6 mg/dL Normal 0.3-1.0 [facility] Comment on above: Performed By: #### Socorro Stroud, HEPATIC, CH8 #### S PATHOLOG[facility] LABORATORY [address] [place] [address], Bilirubin.direct [Mass/Vol] 0.14 mg/dL Normal 0.03-0.18 [facility] Comment on above: Performed By: #### Socorro Stroud, HEPATIC, CH8 #### [facility] [address] [place], [place], Protein [Mass/Vol] 7.1 g/dL Normal 6.0-8.3 The [facility] Comment on above: Performed By: #### M Luanne [facility], 8 #### [facility] PATHOLOGY LABORATORY [address] [place], [place], HIGH SENSITIVITY TROPONIN T (INITIAL)on 10-24-2024 Troponin T.cardiac High sensitivity method [Mass/Vol] 51 ng/L High <12 [facility] Comment on above: Order Comment: Speci men Type: BLOOD SPECIMENOrdering Facility: [facility] Address: [address] [place] [address] Performed By: #### L [id number] ####[facility] [place] LABCLIA [id number] [place] [address] [place] HIGH SENSITIVITY TROPONIN T (SECOND)on 10-24-2024 Troponin T.cardiac High sensitivity method [Mass/Vol] 47 ng/L High <12 [facility] Comment on above: Order Comment: Speci men Type: BLOOD SPECIMENOrdering Facility: [facility] Address: [address] [place] [address] Performed By: #### L [id number] ####[facility] [place] LABCLIA [id number] [place] [address] [place] HIGH SENSITIVITY TROPONIN T (THIRD) 3 HRS AFTER INITIALon 10-24-2024 Troponin T.cardiac High sensitivity method [Mass/Vol] 34 ng/L High <12 [facility] Comment on above: Order Comment: Speci men Type: BLOOD SPECIMENOrdering Facility: [facility] Address: [address] [place] [address] Performed By: #### 3 2355-0 #### [facility] CLIA [id number] [address] [place] [address] [place] Lactate (Bld) [Moles/Vol]on 10-24-2024 Lactate [Moles/Vol] 1.8 mmol/L Normal 0.5-2.2 [facility] Comment on above: Order Comment: Speci men Type: BLOOD SPECIMENOrdering Facility: [facility] Address: [address] [place], [place] [address] Performed By: #### 3 2693-4 ####[facility] [place] LABCLIA [id number] [place] [address] [facility] MAGNESIUMon 10-24-2024 Magnesium [Mass/Vol] 2.2 mg/dL 1.9 - 2 .7 mg/dL [facility] Magnesium [Mass/Vol] 2.2 mg/dL Normal 1.9-2.7 [facility] Comment on above: Performed By: #### M G, HEPATIC, CH8 #### [facility] [address] [place] [address], [id number] Magnesium SerPl-ncon 10-24 Magnesium [Mass/Vol] 1.9 mg/dL Normal 1.7-2.3 [facility] Comment on above: Order Comment: Specoswaldo torres Type: BLOOD SPECIMENOrdering Facility: [facility] Address: [address] [place] [address] Performed By: #### 2 4323-8, 24669-0, 68581-3 ####[facility] LABCLIA [id number] [place] [address] [facility] NT-proBNP [facility]-ncon 10-24 Natriuretic peptide.B prohormone N-Terminal [Mass/Vol] 1007 pg/mL High <125 [facility] Comment on above: Order Comment: Wilbert torres Type: BLOOD SPECIMENOrdering Facility: [facility] Address: [address] [place] [address] Performed By: #### 2 4323-8, 86222-0, 39389-3 ####[facility] LABCLIA [id number] [place] [address] [facility] No Panel Informationon 10-24 Interpretation and review of laboratory results Normal [facility] Progress Noteson 10-24-2024 Supervisor Cytogenetic Laboratory Authentication Interface Message Text [facility] Internal Medicine Nursing Home Plan Note Elis Bills Age [age] year old male ROOM: [place] [address] Admitted No admission date for patient encounter. [...] - nicotine patch Remainder of plan per mba internship note. Raji Curran MD Internal Medicine, PGY-3 Available via [employer] Normal [facility] RED/YELLOW TOP TUBE, [...] Protein (U) [Mass/Vol] 70 mg/dL Abnormal Negative [facility] Specific gravity (U) [Rel density] 1.036 High [...] (positive predictive value for UTI around 50%) [facility] [employer] Glucose Ql (U) Negative Normal Negative [facility] [employer] [facility] Comment on above: Order Comment: A [...] for UTI around 50%) Performed By: #### 8 2948 #### NURSING GLUCOSE PROGRAM [address] [place], [address] Protein (U) [Mass/Vol] 70 mg/dL Abnormal Negative Th e [employer] [facility] Comment on above: Order Comment: A [...] for UTI around 50%) Performed By: #### 8 2948 #### NURSING GLUCOSE PROGRAM [address] [place], [address] U APPEAR Clear Normal Clear [facility] [employer] [facility] Comment on above: Order Comment: A [...] for UTI around 50%) Performed By: #### 8 2948 #### NURSING GLUCOSE PROGRAM [address] [place], [address] U BILI Negative Normal Negative [facility] Comment on above: Order Comment: A [...] for UTI around 50%) Performed By: #### 8 2948 #### NURSING GLUCOSE PROGRAM [address] [place], [address] U BLOOD Trace Abnormal Negative [facility] Comment on above: Order Comment: A [...] for UTI around 50%) Performed By: #### 8 2948 #### NURSING GLUCOSE PROGRAM [address] [place], [address] U COLOR Yellow Normal Colorless [facility] [employer] [facility] Comment on above: Order Comment: A [...] for UTI around 50%) Performed By: #### 8 2948 #### NURSING GLUCOSE PROGRAM [address] [place], [address] U KETONE Negative Normal Negative [facility] [employer] [facility] Comment on above: Order Comment: A [...] for UTI around 50%) Performed By: #### 8 2948 #### NURSING GLUCOSE PROGRAM [address] [place], [address] U LEUK Negative Normal Negative [facility] Comment on above: Order Comment: A [...] for UTI around 50%) Performed By: #### 8 2948 #### NURSING GLUCOSE PROGRAM [address] [place], [address] U NITRITE Negative Normal Negative [facility] Comment on above: Order Comment: A [...] for UTI around 50%) Performed By: #### 8 2948 #### NURSING GLUCOSE PROGRAM [address] [place], [address] U PH 6.5 Normal 5.0-8.0 [facility] [employer] [facility] Comment on above: Order Comment: A [...] for UTI around 50%) Performed By: #### 8 2948 #### NURSING GLUCOSE PROGRAM [address] [place], [address] U RBC 0-2 Normal 0-2 [facility] Comment on above: Order Comment: A [...] for UTI around 50%) Performed By: #### 8 2948 #### NURSING GLUCOSE PROGRAM [address] [place], [address] U SG 1.036 High <=1.030 [facility] Comment on above: Order Comment: A [...] for UTI around 50%) Performed By: #### 8 2948 #### NURSING GLUCOSE PROGRAM [address] [place], [address] U UROBILI Negative Normal Negative [facility] Comment on above: Order Comment: A [...] for UTI around 50%) Performed By: #### 8 2948 #### NURSING GLUCOSE PROGRAM [address] [facility] [place], [address] U WBC 0-2 Normal 0-2 [facility] Comment on above: Order Comment: A [...] for UTI around 50%) Performed By: #### 8 2948 #### NURSING GLUCOSE PROGRAM [address] [place], [address] XR CHEST 1V FRONTALon 2024 XR CHEST [...] Other: . IMPRESSION: No acute radiographic abnormality. Financial Aid Administrator: YAIR Transcribe Date/Time: Oct 24 2024 10:21A Dictated by : AFTAB MARTINEZ MD This examination was interpreted and the report reviewed and electronically signed by: AFTAB MARTINEZ MD on Oct 24 2024 10:22AM EST [id number] Normal [facility] XR CHEST AP OR PA 1 VIEWon 0 10-24-2024 XR CHEST AP OR PA 1 VIEW EXAMINATION: XR CHEST AP OR PA 1 VIEW 10/24/2024 08:28 PM CLINICAL HISTORY: Asthma exacerbation ASSOCIATED DIAGNOSIS: Asthma exacerbation ORDERING PROVIDER: VALENTINA LANDEROS NOTE: COMPARISON: None FINDINGS: Lines, tubes, and devices: None. Lungs and pleura: Diffuse interstitial prominence is noted. There is no large pleural effusion or pneumothorax. Cardiomediastinal silhouette: Normal cardiomediastinal silhouette. Musculoskeletal: Unremarkable. IMPRESSION: Diffuse interstitial prominence. Findings could be related to atypical/viral pneumonia or mild edema. MACRO: None Normal [facility] XR Chest Single viewon 10-24 EXAMINATION: XR CHES T AP OR PA 1 VIEW 10/24/2024 08:28 PM CLINICAL HISTORY: Asthma exacerbation ASSOCIATED DIAGNOSIS: Asthma exacerbation ORDERING PROVIDER: VALENTINA LANDEROS NOTE: COMPARISON: None FINDINGS: Lines, tubes, and [...] ASSOCIATED DIAGNOSIS: Asthma exacerbation ORDERING PROVIDER: VALENTINA LANDEROS NOTE: COMPARISON: None FINDINGS: Lines, tubes, and devices: None. Lungs and pleura: Diffuse interstitial prominence is noted. There is no large pleural effusion or pneumothorax. Cardiomediastinal silhouette: Normal cardiomediastinal silhouette. Musculoskeletal: Unremarkable. IMPRESSION: Diffuse interstitial prominence. Findings could be related to atypical/viral pneumonia or mild edema. MACRO: None [facility] Radiology Study observation (narrative) [facility] XR Chest Single viewOrdered By: Hilda De León on 10-24-2024 [facility] Work Phone: [phone] 09-12-2024 [id number] HNO ID: [id number] Author: VARUN SAHNI PT Service: ? Author Type: Physical Therapist Type: [id number] Filed: 09/12/2024 12:56 Note Text: [facility] Physical Therapy Plan of Care Certification Patient Name: Elis Bills : 1960 [facility] #: [id number] Date: 09/12/2024 To: Lois Hoang MD From [...] Goals for Episode of Care: established 09/12/24 Reading in home exercise program. Restore pain-free lumbar [...] Planned: 4 Planned Treatment Interventions: Therapeutic exercise (22449), Neuromuscular re-education (31182), Manual therapy (99441), Therapeutic activities (49102), Self-skilled nursing management (31717), Patient/Family/Caregi sudhakar Education, Body Mechanics Training PLAN [...] the treatment plan for Elis Tim Bills, [facility]# [id number] for the period of 09/12/24 -- 10/17/24, established on 09/12/2024. Signature certifies the need for therapy services. Normal [facility] CNTHERAPYon 09-12-2024 CNTHERAPY OT/PT/Speech Visit (PTWS) ELIS BILLS ([id number]) 1960 M Date Time Provider Department 09/12/24 8:30 AM VARUN SAHNI PTWS Date Time Provider Department Center 09/12/2024 8:30 AM [id number], COLIN PTWS Mila Sanchez Reason for Visit: [...] Take 2.5 mg by mouth once daily. Supervisor Cytogenetic Laboratory: Addendum Therapy (PT/OT/Speech/Resp) ID: [id number] 09/12/2024 9:11 AM Author: VARUN SAHNI Signed by VARUN SAHNI PT on 09/12/2024 at 9:11 AM * * * This document replaces document [id number] * * * Document text: Program_ID:[id number] Access Code: [email or web address] URL: [email or web address]/ Date: 09-12-2024 Prepared By: Varun Sahni Program [...] 10 reps - Seated Flexion Stretch with Solomon Islander Ball - 2 x daily - 7 x weekly - 2 sets - 10 reps - Seated Thoracic Flexion and Rotation with [place] Islander Ball - 2 x daily - 7 x weekly - 2 sets - 10 reps ----- Normal [facility] THERAPY NTon 09-12-2024 THERAPY NT HNO ID: [id number] Author: VARUN SAHNI PT Service: ? Author Type: Physical Therapist Type: Therapy (PT/OT/Speech/Resp) Filed: 09/12/2024 09:11 Note Text: Program_ID:[id number] Access Code: [email or web address] URL: [email or web address] Date: 09-12-2024 Prepared By: Varun Sahni Program [...] 10 reps - Seated Flexion Stretch with Solomon Islander Ball - 2 x daily - 7 x weekly - 2 sets - 10 reps - Seated Thoracic Flexion and Rotation with [place] Islander Ball - 2 x daily - 7 x weekly - 2 sets - 10 reps Normal [facility] CNPKrissy 09-05-2024 CNPN Telephone (NEAGCLM) ELIS BILLS ([id number]) 1960 M Date Time Provider Department 09/05/24 LOIS HOANG NEAGCLM During your visit today, we recorded the following information about you: Barber, Brooke 09/05/2024 8:16 AM Signed LVM that appt [...] Encounter Status:Closed by BROOKE BARBER on 09/05/24 [facility] Donna 08-28-2024 CNPN Telephone (NEAGCLM) SANJUELIS Tim ([id number]) 1960 M Date Time Provider Department 08/28/24 LOIS HOANG NEAGCLM During your visit today, we recorded the following information about you: Puma Nicolas MA 08/28/2024 2:37 PM Signed Referral placed for physical therapy in the [facility] Internal Referral Portal. Confirmation # [id number] Puma Nicolas Ma Allergies As of Date: [...] Status:Closed by PUMA NICOLAS MA on 08/28/24 [facility] CNOVon 08-10-2024 CNOV Office Visit (NEAGCLM) ELIS BILLS ([id number]) 1960 M Date Time Provider Department 08/10/24 1:00 PM LOIS HOANG NEAGCLM During your visit today, we recorded the following information about you: Pulse Blood pressure Weight Height 63/minute 170/90 116.8 kg 1.753 m Lois Hoang MD 08/10/2024 1:30 PM Signed NEUROSURGERY POST-OP NOTE Lois Hoang MD [facility] Date of visit: August 10, 2024 Patient Name: Mr.Donald Tim Bills Date of : 1960 Current Age: [age] year old Sex: male MRN/E# [id number] Last Office Visit: 08/02/2024 SURGERY: L1 decompression [...] Strength Exam (more content not included)... Normal [facility] Basic metabolic 2000 panelon 07-29-2024 Anion gap [Moles/Vol] 10 mmol/L Normal 8-15 [facility] Comment on above: Order Comment: Speci men Type: BLOOD SPECIMENOrdering Facility: [facility] Address: [address] [place] [address] Performed By: #### 2 692-2, 96937-8 ####[facility] LABORATORYCLIA [id number] [place] [address] [place] Calcium [Mass/Vol] 8.6 mg/dL Normal 8.5-10.2 [facility] Comment on above: Order Comment: Speci men Type: BLOOD SPECIMENOrdering Facility: [facility] Address: [address] [place] [address] Performed By: #### 2 692-2, 57615-3 ####[facility] LABORATORYCLIA [id number] [place] [address] [place] Chloride [Moles/Vol] 86 mmol/L Low 98-107 [facility] Comment on above: Order Comment: Speci men Type: BLOOD SPECIMENOrdering Facility: [facility] Address: [address] [place] [address] Performed By: #### 2 692-2, 91742-3 ####[facility] LABORATORYCLIA [id number] [place] [address] [place] CO2 [Moles/Vol] 25 mmol/L Normal 22-30 [facility] Comment on above: Order Comment: Speci men Type: BLOOD SPECIMENOrdering Facility: [facility] Address: [address] [place] [address] Performed By: #### 2 692-2, 89030-5 ####[facility] LABORATORYCLIA [id number] [address] STATES OF [facility] Creatinine [Mass/Vol] 0.98 mg/dL Normal 0.73-1.22 [facility] Comment on above: Order Comment: Speci men Type: BLOOD SPECIMENOrdering Facility: [facility] Address: [address] [place] [address] Performed By: #### 2 692-2, 78994-5 ####[facility] LABORATORYCLIA [id number] [address] Creatinine and Glomerular filtration rate.predicted panel (S/P/Bld) 86 mL/min/1.73m??? Normal >=60 [facility] Comment on above: Order Comment: Speci men Type: BLOOD SPECIMENOrdering Facility: [facility] Address: [address] [place] [address] Result Comment: Lala mated Glomerular Filtration Rate (eGFR) is calculated using the 2021 CKD-EPI creatinine equation. This equation utilizes serum creatinine, sex, and age as parameters. The creatinine assay has traceable calibration to isotope dilution-mass spectrometry. Refer to KDIGO guidelines for clinical interpretation. In patients with unstable renal function, e.g. those with acute kidney injury, the eGFR may not accurately reflect actual GFR. Performed By: #### 2 692-2, 17062-7 ####[facility] LABORATORYCLIA [id number] [place] [address] [place] Glucose [Mass/Vol] 113 mg/dL High 74-99 [facility] Comment on above: Order Comment: Wilbert torres Type: BLOOD SPECIMENOrdering Facility: [facility] Address: [address] [place] [address] Result Comment: The [place] Diabetes Association (ADA) provides guidance for cutoff [...] Standards of Medical Care in Diabetes 2016, [place] Diabetes Association. Diabetes Care. 2016.39(Suppl 1). Performed By: #### 2 692-2, 59379-3 ####[facility] LABORATORYCLIA [id number] [place] [address] [place] Potassium [Moles/Vol] 5.3 mmol/L High 3.7-5.1 [facility] Comment on above: Order Comment: Wilbert torres Type: BLOOD SPECIMENOrdering Facility: [facility] Address: [address] [place] [address] Performed By: #### 2 692-2, 01416-7 ####[facility] LABORATORYCLIA [id number] [place] [address] [place] Sodium [Moles/Vol] 121 mmol/L Low 136-144 [facility] Comment on above: Order Comment: Specoswaldo men Type: BLOOD SPECIMENOrdering Facility: [facility] Address: [address] [place] [id number] Performed By: #### 2 692-2, 78992-6 ####[facility] LABORATORYCLIA [id number] [place] [address] [facility] Urea nitrogen [Mass/Vol] 11 mg/dL Normal 9-24 [facility] Comment on above: Order Comment: Speci men Type: BLOOD SPECIMENOrdering Facility: [facility] Address: [address] [place] [id number] Performed By: #### 2 692-2, 50751-8 ####[facility] LABORATORYCLIA [id number] [place] [address] [facility] CASE MANAGEMon 07-29-2024 CASE MANAGEM HNO ID: [id number] Author: AUSTIN CHERRY RN Service: ? Author [...] the process utilized to ensure compliance with [facility] policy regarding Inpatient Admission and Observation [...] order as documented evidence of concurrence. Normal [facility] CBC panel Auto (Bld)on 07-29 Erythrocyte distribution width (RBC) [Ratio] 13.4 % Normal 11.5-15.0 [facility] Comment on above: Order Comment: Wilbert torres Type: BLOOD SPECIMENOrdering Facility: [facility] Address: [address] [place] [address] Performed By: #### 3 2355-0 #### [facility] CLIA [id number] [address] [place] [address] Hematocrit (Bld) [Volume fraction] 38.0 % Low 39.0-51.0 [facility] Comment on above: Order Comment: Specoswaldo torres Type: BLOOD SPECIMENOrdering Facility: [facility] Address: [address] [place] [address] Performed By: #### 3 2355-0 #### [facility] CLIA [id number] [address] STATES OF [facility] Hemoglobin (Bld) [Mass/Vol] 12.7 g/dL Low 13.0-17.0 [facility] Comment on above: Order Comment: Speci brian Type: BLOOD SPECIMENOrdering Facility: [facility] Address: [address] [place] [address] Performed By: #### 3 2355-0 #### [facility] CLIA [id number] [address] MCH (RBC) [Entitic mass] 28.8 pg Normal 26.0-34.0 [facility] Comment on above: Order Comment: Speci men Type: BLOOD SPECIMENOrdering Facility: [facility] Address: [address] [place] [address] Performed By: #### 3 2355-0 #### [facility] CLIA [id number] [address] MCHC (RBC) [Mass/Vol] 33.4 g/dL Normal 30.5-36.0 [facility] Comment on above: Order Comment: Speci men Type: BLOOD SPECIMENOrdering Facility: [facility] Address: [address] [place] [address] Performed By: #### 3 2355-0 #### [facility] CLIA [id number] [address] MCV (RBC) [Entitic vol] 86.2 fL Normal 80.0-100.0 [facility] Comment on above: Order Comment: Speci men Type: BLOOD SPECIMENOrdering Facility: [facility] Address: [address] [place] [address] Performed By: #### 3 2355-0 #### [facility] CLIA [id number] [address] Nucleated RBC (Bld) [#/Vol] 10*3/uL Normal <0.01 [facility] Comment on above: Order Comment: Speci men Type: BLOOD SPECIMENOrdering Facility: [facility] Address: [address] [place] [address] Performed By: #### 3 2355-0 #### [facility] CLIA [id number] [address] Platelet mean volume (Bld) [Entitic vol] 9.3 fL Normal 9.0-12.7 [facility] Comment on above: Order Comment: Speci men Type: BLOOD SPECIMENOrdering Facility: [facility] Address: [address] [place] [address] Performed By: #### 3 2355-0 #### [facility] CLIA [id number] [address] [place] Platelets (Bld) [#/Vol] 296 10*3/uL Normal 150-400 [facility] Comment on above: Order Comment: Speci men Type: BLOOD SPECIMENOrdering Facility: [facility] Address: [address] [place] [address] Performed By: #### 3 2355-0 #### [facility] CLIA [id number] [address] RBC (Bld) [#/Vol] 4.41 10*6/uL Normal 4.20-6.00 [facility] Comment on above: Order Comment: Speci men Type: BLOOD SPECIMENOrdering Facility: [facility] Address: [address] [place] [address] Performed By: #### 3 2355-0 #### [facility] CLIA [id number] [address] WBC (Bld) [#/Vol] 12.07 10*3/uL High 3.70-11.00 [facility] Comment on above: Order Comment: Speci men Type: BLOOD SPECIMENOrdering Facility: [facility] Address: [address] [place] [address] Performed By: #### 3 2355-0 #### [facility] CLIA [id number] [address] CNDSon 07-29-2024 CNDS HNO ID: [id number] Author: ISABELLA SANTACRUZ PA-C Service: Neurosurgery Author Type: Physician Workers Compensation Adjuster Type: Discharge Summary Filed: 07/29/2024 15:16 Note [...] 160-9-4.8 mcg/actuation HFA aerosol inhaler Generic drug: dqzyugzrpk-czqkkbba-q ormoterol budesonide 0.5 mg/2 mL nebulizer solution Commonly known as: PULMICORT Use 2 mL via nebulizer two times a day. lisinopril 2.5 mg tablet montelukast 10 mg tablet Commonly known as: SINGULAIR Take 1 tablet by mouth daily at bedtime. nicotine polacrilex 4 mg gum Commonly known as: NICORETTE Take 1 Each by mouth as needed. omeprazo (more content not included)... Normal [facility] CONSULTon 07-29-2024 CONSULT HNO ID: [id number] Author: RADHA LUO MD Service: Nephrology Author [...] S2 Lungs (more content not included)... Normal [facility] CONSULT PROGon 07-29-2024 CONSULT PROG HNO ID: [id number] Author: OBIE ESPARZA DO Service: Hospital Medicine Author Type: Physician Type: Consult Progress Note Filed: 07/29/2024 11:02 Note Text: DEPARTMENT OF HOSPITAL MEDICINE CONSULT PROGRESS NOTE SERVICE DATE: 07/29/2024 SERVICE TIME: 10:52 AM Primary Care Physician: Pilar Lanza DO NIGHT AND WEEKEND COVERAGE: [place] COVERAGE: After 7pm, please call cross cover pager #[phone] Subjective INTERVAL HPI: 64-year-old male with past [...] and Airways Line Duration Peripheral 07/28/24 0931 [facility] Short Right Hand 18 Gauge 1 [...] July 29, 2024 TIME: 10:52 AM etx [id number] Normal [facility] Osmolality SerPlon 5 Osmolality [Osmolality] 270 mosm/kg Low 275-300 [facility] Comment on above: Order Comment: Speci men Type: BLOOD SPECIMENOrdering Facility: [facility] Address: [address] [place] [address] Performed By: #### 2 692-2, 78523-3 ####[facility] LABORATORYCLIA [id number] [place] [address] [place] Osmolality Uron 07-29-2024 Osmolality (U) [Osmolality] 368 mosm/kg Normal 50-1200 [facility] Comment on above: Order Comment: Speci men Type: URINE SPECIMENOrdering Facility: [facility] Address: [address] [place] [address] Performed By: #### 6 00-7 #### [facility] CLIA [id number] [address] [place] [address] [place] Sodium ?Tm Ur-sCncon 025 Sodium Unsp time (U) [Moles/Vol] <20 Normal 14-216 [facility] Comment on above: Order Comment: Speci men Type: URINE SPECIMENOrdering Facility: [facility] Address: [address] [place] [address] Performed By: #### 6 00-7 #### [facility] CLIA [id number] [address] [place] [address] [place] Sodium SerPl-sCncon 07-29-19 25 Sodium [Moles/Vol] 128 mmol/L Low 136-144 [facility] Comment on above: Order Comment: Speci men Type: BLOOD SPECIMENOrdering Facility: [facility] Address: [address] [place] [address] Performed By: #### 6 00-7 #### [facility] CLIA [id number] [address] [place] Sodium [Moles/Vol] 129 mmol/L Low 136-144 [facility] Comment on above: Order Comment: Speci men Type: BLOOD SPECIMENOrdering Facility: [facility] Address: [address] [place] [address] Performed By: #### 2 951-2 ####[facility] LABORATORYCLIA [id number] [address] [place] Sodium [Moles/Vol] 125 mmol/L Low 136-144 [facility] Comment on above: Order Comment: Speci men Type: BLOOD SPECIMENOrdering Facility: [facility] Address: [address] [place] [address] Performed By: #### 2 951-2 ####[facility] LABORATORYCLIA [id number] [address] OF [facility] THERAPY NTon 07-29-2024 THERAPY NT HNO ID: [id number] Author: FLORENCE ALEXANDRE OTR/Soumya Service: Occupational Therapy Author Type: Occupational Therapist Type: Therapy (PT/OT/Speech/Resp) Filed: 07/29/2024 11:40 Note Text: Occupational Therapy Evaluation Summary SERVICE DATE: 07/29/2024 SERVICE TIME: 0949 to 1003 ROOM: [id number] OT 6 Clicks Score: 21 DISCHARGE RECOMMENDATIONS [...] FUNCTIONAL LEVEL Within Functional Limits 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, 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, 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 Baseline Cognition: Oriented to self, Oriented to place, Oriented to time, Oriented to situation SUBJECTIVE agreeable to session COGNITION Responsiveness: Alert Follows Commands: 3-step Commands THERAPY DIAGNOSIS Reduced mobility-other, Decreased activities of daily living (ADL) TREATMENT INTERVENTIONS Evaluation Skilled Treatment Time (minutes): 15 $ Evaluation - Low (12292) Billed Units: 1 unit Educated patient on [...] of Occupational Therapy, Standing Balance to Improve Reading with ADLs/Self-Care, Transfer - Toilet/Commode THERAPEUTIC SKILLS [...] Interventions: Education, Self Care/Home Management SIGNATURE: MADELIN Min/L PATIENT NAME: Elis Bills DATE: July 29, 2024 TIME: 11:39 AM Normal [facility] THERAPY NT HNO ID: [id number] Author: NADREA PISANO, PT Service: Physical Therapy Author Type: Physical Therapist Type: Therapy (PT/OT/Speech/Resp) Filed: 07/29/2024 09:17 Note Text: Physical Therapy Evaluation Summary SERVICE DATE: 07/29/2024 SERVICE TIME: 814 to 841 ROOM: [place] [address] PT 6 Clicks Score: 21 DISCHARGE RECOMMENDATIONS [...] FUNCTIONAL LEVEL Within Functional Limits 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, 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, 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 SUBJECTIVE Patient pleasant and agreeable to PT session THERAPY DIAGNOSIS Muscle Weakness (generalized), General symptoms and signs-other TREATMENT INTERVENTIONS Evaluation, Therapeutic Activity (00541) $ Evaluation-Moderate (21825) Billed Units: 1 unit Therapeutic Activity (36315) Treatment Minutes: 9 $ Therapeutic Activity (22661) Billed Units: 1 unit Educated patient on [...] July 29, 2024 TIME: 9:14 AM Normal [facility] ANES POSTPROC EVALon 025 ANES POSTPROC EVAL HNO ID: [id number] Author: PAOLA REYES MD Service: Anesthesiology Author Type: Anesthesiologist Type: Anesthesia Postprocedure Evaluation Filed: 07/28/2024 16:23 Note Text: POST ANESTHESIA EVALUATION NOTE : 1960 Procedure Summary Date: 07/28/24 Room / Location: [place] OR 01 [place] OR Anesthesia Start: 1155 Anesthesia Stop: [...] July 28, 2024 TIME: 3:18 PM CSN: [id number] [facility] ANES PRE-OPon 07-28-2024 ANES PRE-OP HNO ID: [id number] Author: PAOLA REYES MD Service: Anesthesiology Author Type: Anesthesiologist Type: Anesthesia Preprocedure Evaluation Filed: 07/28/2024 10:40 Note Text: ANESTHESIOLOGY DAY OF SURGERY NOTE : 1960 Procedure Information Date/Time: 07/28/24 1045 Procedures: DECOMPRESSION LAMINECTOMY LUMBAR POSTERIOR LEVEL 1 (Spine Lumbar) DECOMPRESSION LAMINECTOMY 1ST ADD'L LUMBAR SEGMENT (Spine Lumbar) Location: [place] OR OR Surgeons: Lois Hoang MD Estimated [...] and consent discussed: yes. Patient / Responsible Libertarian agrees to proceed: yes Patient / Surrogate agrees to blood products: Yes Potential Anesthesia issues that may suggest increased risk of complications or contraindication to planned procedure: potential difficult intubation. Vitals Value Taken Time BP 142/66 07/28/24 0931 Pulse 74 07/28/24 0931 Resp 16 07/28/24 0931 Temp 36.7 ?C (98.1 ?F) 07/28/24930 SpO2 [...] July 28, 2024 TIME: 10:34 AM CSN: [id number] [facility] CONSULTon 07-28-2024 CONSULT HNO ID: [id number] Author: KAYDEN KOHLI MD Service: Hospital Medicine Author Type: Physician Type: Consults Filed: 07/28/2024 19:14 Note Text: DEPARTMENT OF HOSPITAL MEDICINE INITIAL CONSULT SERVICE DATE: 07/28/2024 SERVICE TIME: 7:02 PM Primary Care Physician: Pilar Lanza DO NIGHT AND WEEKEND COVERAGE: [place] COVERAGE: From 7am - 7pm, please call team pager After 7pm, please call cross cover pager #[phone] REASON FOR CONSULT: . REQUESTING PHYSICIAN: Dr. [...] patient been tested for COVID-19 outside of [facility]? No PAST MEDICAL HISTORY Diagnosis Date [...] mg OR (more content not included)... Normal [facility] OPERATIVE NOon 07-28-2024 OPERATIVE NO HNO ID: [id number] Author: LOIS HOANG MD Service: Neurosurgery Author Type: Physician Type: Operative Report Filed: 08/09/2024 09:06 Note Text: OPERATIVE/PROCEDURE REPORT LOG ID: [id number] SURGERY/PROCEDURE DATE: 07/28/2024 INCISION/PROCEDURE START TIME: 12:43 PM INCISION CLOSE/PROCEDURE END TIME: 2:13 PM SURGEON(S)/PROCEDURAL IST(S) AND HEAVY FORGING MACHINE OPERATOR(S): Surgeons and Role: * Lois Hoang MD - Primary Physician Workers Compensation Adjuster: Lisandro Fulton PA-C; Austin Solo PA-C SURGERY/PROCEDURE(S): [...] was closed with inverted 2-0 Vicryl sutures. Isabella were used to close the skin. All [...] August 09, 2024 TIME: 9:01 AM Normal [facility] XR LUMBAR SPECIFY 1Von 07-28 XR LUMBAR SPECIFY 1V * * *Final Report* * * DATE OF EXAM: Jul 28 2024 2:35PM [facility] 5234 - XR LUMBAR SPECIFY 1V [...] notes for further details of the procedure. Financial Aid Administrator: PSCB Transcribe Date/Time: Aug 01 2024 1:44P Dictated by : CRISTIAN FREITAS MD This examination was interpreted and the report reviewed and electronically signed by: CRISTIAN FREITAS MD on Aug 01 2024 1:47PM EST [id number] Normal [facility] XR VERIFY LEVEL X-[id number] 07-28-2024 XR VERIFY LEVEL L-SPINE-NB * * [...] by Dr. Hoang on 07/28/2024 1:02 PM. Financial Aid Administrator: YAIR Transcribe Date/Time: Jul 28 2024 1:02P Dictated by : SUNITA SMITH MD This examination was interpreted and the report reviewed and electronically signed by: SUNITA SMITH MD on Jul 28 2024 1:11PM EST [id number] [facility] 07-27-2024 JELENA Telephone (NEAGCLM) ELIS BILLS ([id number]) 1960 M Date Time Provider Department 07/27/24 LOIS HOANG During your visit today, we recorded the following information about you: Stephane Bazan 07/27/2024 9:21 AM Signed Contacted patient to remind them of their arrival time for surgery with Dr. Lois Hoang on 07/28/24. Patient is to arrive at [facility] at 8:30am for surgery at 10:30am. Spoke with patient and they are aware of all arrival information. Allergies As of Date: 07/27/2024 Noted Allergy Reaction PENICILLINS 08/27/2014 14 - Other: See Comments Comments: Respiratory distress as a baby DALIRESP (ROFLUMILAST) 07/14/2024 2 - Rash Date Reviewed: 07/14/2024 Reviewed by: Harvey Purvis APRN.DERRICK BUILDER - Fully Assessed Reason for Visit: Preparations [...] Encounter Status:Closed by STEPHANE BAZAN on 07/27/24 [facility] NURSING PROGon 07-27-2024 NURSING PROG HNO ID: [id number] Author: CANDE BEAL APRN.DERRICK BUILDER Service: Anesthesiology Author Type: Nurse Practitioner Type: Nursing Progress Note Filed: 07/27/2024 10:16 Note Text: Abnormal labs from 07/14/24 from PAT appointment reviewed with Dr. Yen, anesthesiologist- Na 127, Cl 90, BUN 4. Okay to proceed with case tomorrow- pt will be evaluated DOS per Dr. Yen. [facility] NURSING PROGon 07-21-2024 NURSING PROG HNO ID: [id number] Author: YASHIRA LEYVA APRN.DERRICK BUILDER Service: ? Author Type: Nurse Practitioner Type: Nursing Progress Note Filed: 07/21/2024 13:39 Note Text: Summary: PAT Pulmonary clearance in [facility] 07/21/2023 [facility] CNCOon 07-20-2024 CNCO Letter Text [facility] CNPNon 07-20-2024 CNPN Telephone ([facility]) ELIS BILLS ([id number]) 1960 M Date Time Provider Department 07/20/24 SHELTON FLORES [facility] During your visit today, we recorded the following information about you: Dalia Merritt 07/20/2024 3:46 PM Signed Type of form: Medical clearance for L2-L4 Laminectomy DOS: 07/28/24 TIMO Form received via fax When form is completed, Fax form to [phone] Form has been forwarded to Physician Mailbox: Dalia Garcia 07/21/2024 12:54 PM Signed Completed/signed form faxed back to Dr. Hoang's office. Dalia Merritt Allergies As of Date: 07/20/2024 Noted Allergy Reaction PENICILLINS 08/27/2014 14 - Other: See Comments Comments: Respiratory distress as a baby HANP (ROFLUMILAST) 07/14/2024 2 - Rash Date Reviewed: 07/14/2024 Reviewed by: Harvey Purvis APRN.DERRICK BUILDER - Fully Assessed Reason for Visit: Medical Clearance [1983] Prescriptions as of 07/21/2024 - BREZTRI AEROSPHERE [...] Encounter Status:Closed by DALIA MERRITT on 07/21/24 [facility] NURSING PROGon 07-20-2024 NURSING PROG HNO ID: [id number] Author: ARNULFO HERNANDEZ APRN.DERRICK BUILDER Service: General Surgery Author Type: Nurse Practitioner Type: Nursing Progress Note Filed: 07/20/2024 14:46 Note Text: Summary: PAT FELIPE Vizcaino at Dr. Hoang's office asking for pulmonary optimization as requested by anesthesia. Normal [facility] Donna 07-17-2024 NABORN Telephone (AKPRAD) ELIS BILLS ([id number]) 1960 M Date Time Provider Department 07/17/24 ELBERTWilliamPOLLY During your visit today, we recorded the following information about you: Allergies As of Date: 07/17/2024 Noted Allergy Reaction PENICILLINS 08/27/2014 14 - Other: See Comments Comments: Respiratory distress as a baby DALIRESP (ROFLUMILAST) 07/14/2024 2 - Rash Date Reviewed: 07/14/2024 Reviewed by: Harvey Purvis APRN.DERRICK BUILDER - Fully Assessed Prescriptions as of 07/17/2024 [...] Encounter Status:Closed by POLLY MCFARLANE on 07/17/24 [facility] NURSING PROGon 07-17-2024 NURSING PROG HNO ID: [id number] Author: POLLY MCFARLANE APRN.DERRICK BUILDER Service: Anesthesiology Author Type: Nurse Practitioner Type: [...] please follow up on pulmonary optimization. Normal [facility] Bacteria Ur Culton Bacteria identified Cx Nom (U) CULTURE, URINE: 10,000-<50,000 CFU/ml Normal Urogenital Mark Normal [facility] Comment on above: Performed By: #### 6 30-4 #### [facility] CLIA [id number] [address] STATES OF [facility] CBC panel Auto (Bld)on 07-14 Erythrocyte distribution width (RBC) [Ratio] 13.7 % Normal 11.5-15.0 [facility] Comment on above: Order Comment: Speci men Type: BLOOD SPECIMENOrdering Facility: [facility] Address: [address] [place] [address] Performed By: #### 5 8410-2 ####[facility]ATORYCLIA [id number] [address] [place] Hematocrit (Bld) [Volume fraction] 39.9 % Normal 39.0-51.0 [facility] Comment on above: Order Comment: Speci men Type: BLOOD SPECIMENOrdering Facility: [facility] Address: [address] [place] [address] Performed By: #### 5 8410-2 ####[facility]ATORYCLIA [id number] [address] [place] Hemoglobin (Bld) [Mass/Vol] 13.8 g/dL Normal 13.0-17.0 [facility] Comment on above: Order Comment: Speci men Type: BLOOD SPECIMENOrdering Facility: [facility] Address: [address] [place] [address] Performed By: #### 5 8410-2 ####[facility]ATORYCLIA [id number] [address] [place] MCH (RBC) [Entitic mass] 29.7 pg Normal 26.0-34.0 [facility] Comment on above: Order Comment: Speci men Type: BLOOD SPECIMENOrdering Facility: [facility] Address: [address] [place] [address] Performed By: #### 5 8410-2 ####[facility]ATORYCLIA [id number] [address] [place] MCHC (RBC) [Mass/Vol] 34.6 g/dL Normal 30.5-36.0 [facility] Comment on above: Order Comment: Speci men Type: BLOOD SPECIMENOrdering Facility: [facility] Address: [address] [place] [address] Performed By: #### 5 8410-2 ####[facility]ATORYCLIA [id number] [address] MCV (RBC) [Entitic vol] 85.8 fL Normal 80.0-100.0 [facility] Comment on above: Order Comment: Speci men Type: BLOOD SPECIMENOrdering Facility: [facility] Address: [address] [place] [address] Performed By: #### 5 8410-2 ####[facility]ATORYCLIA [id number] [address] Nucleated RBC (Bld) [#/Vol] 10*3/uL Normal <0.01 [facility] Comment on above: Order Comment: Speci men Type: BLOOD SPECIMENOrdering Facility: [facility] Address: [address] [place] [address] Performed By: #### 5 8410-2 ####[facility]ATORYCLIA [id number] [address] Platelet mean volume (Bld) [Entitic vol] 9.3 fL Normal 9.0-12.7 [facility] Comment on above: Order Comment: Speci men Type: BLOOD SPECIMENOrdering Facility: [facility] Address: [address] [place] [address] Performed By: #### 5 8410-2 ####[facility]ORATORYCLIA [id number] [address] OF [facility] Platelets (Bld) [#/Vol] 271 10*3/uL Normal 150-400 [facility] Comment on above: Order Comment: Speci men Type: BLOOD SPECIMENOrdering Facility: [facility] Address: [address] [place] [address] Performed By: #### 5 8410-2 ####[facility]ORATORYCLIA [id number] [address] STATES OF [facility] RBC (Bld) [#/Vol] 4.65 10*6/uL Normal 4.20-6.00 [facility] Comment on above: Order Comment: Speci men Type: BLOOD SPECIMENOrdering Facility: [facility] Address: [address] [place] [address] Performed By: #### 5 8410-2 ####[facility]ORATORYCLIA [id number] [address] WBC (Bld) [#/Vol] 7.91 10*3/uL Normal 3.70-11.00 [facility] Comment on above: Order Comment: Speci men Type: BLOOD SPECIMENOrdering Facility: [facility] Address: [address] [place] [address] Performed By: #### 5 8410-2 ####[facility]ORATORYCLIA [id number] [address] CONFIRM BLOOD TYPEon 024 ABO O Normal [facility] Comment on above: Order Comment: Speci men Type: BLOOD SPECIMEN [facility]ing [facility]: [facility] Address: [address] [place] [address] Performed By: #### C ONABO #### [facility] CLIA [id number] [address] Rh Nom (Bld) Positive Normal [facility] Comment on above: Order Comment: Speci men Type: BLOOD SPECIMEN [facility]ing [facility]: [facility] Address: [address] [place] [address] Performed By: #### C ONABO #### [facility] CLIA [id number] [address] [place] ABO group Nom (Bld) O [facility] Rh Nom (Bld) Positive [facility] metabolic 2000 panelon 07-14-2024 Albumin [Mass/Vol] 4.2 g/dL Normal 3.9-4.9 [facility] Comment on above: Order Comment: Speci men Type: BLOOD SPECIMENOrdering Facility: [facility] Address: [address] [place] [address] Performed By: #### 6 00-7 #### [facility] CLIA [id number] [address] [place] ALP [Catalytic activity/Vol] 98 U/L Normal 38-113 [facility] Comment on above: Order Comment: Speci men Type: BLOOD SPECIMENOrdering Facility: [facility] Address: [address] [place] [address] Performed By: #### 6 -7 #### [facility] CLIA [id number] [address] STATES OF [facility] ALT With P-5'-P [Catalytic activity/Vol] 24 U/L Normal 10-54 [facility] Comment on above: Order Comment: Speci men Type: BLOOD SPECIMENOrdering Facility: [facility] Address: [address] [place] [address] Performed By: #### 6 00-7 #### [facility] CLIA [id number] [address] [place] [address] [place] Anion gap [Moles/Vol] 12 mmol/L Normal 8-15 [facility] Comment on above: Order Comment: Speci men Type: BLOOD SPECIMENOrdering Facility: [facility] Address: [address] [place] [address] Performed By: #### 6 00-7 #### [facility] CLIA [id number] [address] [place] AST With P-5'-P [Catalytic activity/Vol] 22 U/L Normal 14-40 [facility] Comment on above: Order Comment: Speci men Type: BLOOD SPECIMENOrdering Facility: [facility] Address: [address] [place] [address] Performed By: #### 6 -7 #### [facility] CLIA [id number] [address] [place] Bilirubin [Mass/Vol] 0.6 mg/dL Normal 0.2-1.3 [facility] Comment on above: Order Comment: Speci men Type: BLOOD SPECIMENOrdering Facility: [facility] Address: [address] [place] [address] Performed By: #### 6 -7 #### [facility] CLIA [id number] [address] [place] Calcium [Mass/Vol] 9.2 mg/dL Normal 8.5-10.2 [facility] Comment on above: Order Comment: Speci men Type: BLOOD SPECIMENOrdering Facility: [facility] Address: [address] [place] [address] Performed By: #### 6 -7 #### [facility] CLIA [id number] [address] [place] [address] [place] Chloride [Moles/Vol] 90 mmol/L Low 98-107 [facility] Comment on above: Order Comment: Speci men Type: BLOOD SPECIMENOrdering Facility: [facility] Address: [address] [place] [address] Performed By: #### 6 -7 #### [facility] CLIA [id number] [address] [place] [address] [place] CO2 [Moles/Vol] 25 mmol/L Normal 22-30 [facility] Comment on above: Order Comment: Speci men Type: BLOOD SPECIMENOrdering Facility: [facility] Address: [address] [place] [address] Performed By: #### 6 -7 #### [facility] CLIA [id number] [address] [place] Creatinine [Mass/Vol] 0.80 mg/dL Normal 0.73-1.22 [facility] Comment on above: Order Comment: Wilbert torres Type: BLOOD SPECIMENOrdering Facility: [facility] Address: [address] [place] [address] Performed By: #### 6 00-7 #### [facility] CLIA [id number] [address] Creatinine and Glomerular filtration rate.predicted panel (S/P/Bld) 98 mL/min/1.73m??? Normal >=60 [facility] Comment on above: Order Comment: Wilbert torres Type: BLOOD SPECIMENOrdering Facility: [facility] Address: [address] [place] [address] Result Comment: Lala mated Glomerular Filtration Rate [...] GFR. Performed By: #### 6 00-7 #### [facility] CLIA [id number] [address] OF [facility] Glucose [Mass/Vol] 80 mg/dL Normal 74-99 [facility] Comment on above: Order Comment: Wilbert torres Type: BLOOD SPECIMENOrdering Facility: [facility] Address: [address] [place] [address] Result Comment: The [place] Diabetes Association (ADA) provides guidance for cutoff [...] Standards of Medical Care in Diabetes 2016, [place] [employer]. Diabetes Care. 2016.39(Suppl 1). Performed By: #### 6 00-7 #### [facility] CLIA [id number] [address] Potassium [Moles/Vol] 4.5 mmol/L Normal 3.7-5.1 [facility] Comment on above: Order Comment: Speci men Type: BLOOD SPECIMENOrdering Facility: [facility] Address: [address] [place] [address] Performed By: #### 6 00-7 #### [facility] CLIA [id number] [address] STATES [facility] Protein [Mass/Vol] 7.1 g/dL Normal 6.3-8.0 [facility] Comment on above: Order Comment: Speci men Type: BLOOD SPECIMENOrdering Facility: [facility] Address: [address] [place] [address] Performed By: #### 6 -7 #### [facility] CLIA [id number] [address] Sodium [Moles/Vol] 127 mmol/L Low 136-144 [facility] Comment on above: Order Comment: Speci men Type: BLOOD SPECIMENOrdering Facility: [facility] Address: [address] [place] [address] Performed By: #### 6 -7 #### [facility] CLIA [id number] [address] STATES [facility] Urea nitrogen [Mass/Vol] 4 mg/dL Low 9-24 [facility] Comment on above: Order Comment: Speci men Type: BLOOD SPECIMENOrdering Facility: [facility] Address: [address] [place] [address] Performed By: #### 6 00-7 #### [facility] CLIA [id number] [address] [place] ECG COMPLETEon 07-14-2024 ECG COMPLETE Ventricular Rate : 6 7 BPM Atrial Rate : 67 BPM P-R Interval : 146 ms QRS Duration : 122 ms Q-T Interval : 440 ms QTC Calculation(Bazett) : 464 ms Calculated P Rhine : -5 degrees Calculated R Rhine : 64 degrees Calculated T Rhine : 30 degrees NORMAL SINUS RHYTHM RIGHT BUNDLE BRANCH BLOCK ABNORMAL ECG WHEN COMPARED WITH ECG OF 01-Dec-2023 09:50, PREMATURE SUPRAVENTRICULAR COMPLEXES ARE NO LONGER PRESENT Confirmed by MD AMARO ZENAB ([id number]) on 07/18/2024 3:09:52 PM NAME : ELIS BILLS PID : [id number] : 1960 Gender : Male Race : ORD : [id number] Procedure Date : Jul 14 2024 13:13:32 Edit Date : Jul 18 2024 15:09:55 Diagnosis: NORMAL SINUS RHYTHM RIGHT BUNDLE BRANCH BLOCK ABNORMAL ECG WHEN COMPARED WITH ECG OF 01-Dec-2023 09:50, PREMATURE SUPRAVENTRICULAR COMPLEXES ARE NO LONGER PRESENT Confirmed by MD AMARO ZENAB ([id number]) on 07/18/2024 3:09:52 PM Test Reason : HCS Location : 147 : [facility] Overread By : MD AMARO ZENAB Edited By : MD AMARO ZENAB Referred By : Candice Hoang by : HARVEY PURVIS [facility] HISTORY PHYSICALon HISTORY PHYSICAL HNO ID: [id number] Author: HARVEY PURVIS APRN.CNP Service: ? Author Type: Nurse Practitioner [...] - ANESTHESIA PLAN Anesthetic Plan: general Beta [place] Monitoring Plan Post Procedure Analgesic Plan Prepared for Surgery: CONSULTS: The following consults have been initiated at this time: primary care/internal medicine (in [facility]). Planned Anesthetic: general The Following Tests/Procedures Have Been Initiated: Orders Placed This Encounter Confirm Blood Type Standing Status: Future Number of Occurrences: 1 Standing Expiration Date: 10/13/2024 Order Specific Question: Did Blood Bank direct you to place this order: Answer: No - Presurgical Workflow Theralogix 160-9-4.8 mcg/actuation HFA aerosol inhaler Sig: INHALE [...] and tobacc (more content not included)... Normal [facility] PT panel Coag (PPP)on 2023 INR Coag (PPP) [Relative time] 1.0 {INR} Normal 0.9-1.3 [facility] Comment on above: Order Comment: Speci men Type: BLOOD SPECIMENOrdering Facility: [facility] Address: [address] [place] [address] Result Comment: Malini min K Antagonist (VKA) Therapeutic Range: INR 2 to 3 (Target INR of 2.5) Note: For patients treated with VKA drugs, such as warfarin, the [place] [employer] 2012 Guideline recommends [...] Chest 2012, 141:7S-47S Deon PUTNAM et al. [facility] 2017, 70: 252-289 Performed By: #### 3 4528-0, 09163-3 ####[facility] LABCLIA [id number] [place] [id number] [place] [facility] PT Coag (PPP) [Time] 10.4 s Normal <13.1 [facility] Comment on above: Order Comment: Speci men Type: BLOOD SPECIMENOrdering Facility: [facility] Address: [address] [place] [address] Performed By: #### 3 4528-0, 36045-8 ####[facility] LABCLIA [id number] [address] [place] STAPHYLOCOCCUS AUREUS AND MR SA SCREEN, PCR, NASALon 07-14-2024 S. aureus and MRSA panel YADIRA+probe (Nose) Not detected Normal Not Detected [facility] Comment on above: Order Comment: Speci brian Type: SWABOrdering Facility: [facility] Address: [address] [place] [address] Performed By: #### S APCR ####[facility]ORATORYCLIA [id number] [address] STATES OF [facility] TYPE AND SCREEN,30 DAYon ABO O Normal [facility] Comment on above: Order Comment: Speci men Type: BLOOD SPECIMEN [facility] Address: [address] [place] [address] Performed By: #### T SCR30 #### [facility] CLIA [id number] [address] STATES OF [facility] Rh Nom (Bld) Positive Normal [facility] Comment on above: Order Comment: Speci men Type: BLOOD SPECIMEN [facility] Address: [address] [place] [address] Performed By: #### T SCR30 #### [facility] CLIA [id number] [address] Urinalysis complete panel (U )on 07-14-2024 Bilirubin Ql (U) Negative Normal Negative [facility] Comment on above: Order Comment: Speci men Type: URINE SPECIMENOrdering Facility: [facility] Address: [address] [place] [address] Performed By: #### 2 4356-8 ####[facility]ORATORYCLIA [id number] [address] [place] Clarity (Unsp spec) Clear Normal Clear [facility] Comment on above: Order Comment: Speci men Type: URINE SPECIMENOrdering Facility: [facility] Address: [address] [place] [address] Performed By: #### 2 4356-8 ####[facility] LABORATORYIA [id number] [address] STATES OF [facility] Color (U) Colorless Normal yellow [facility] Comment on above: Order Comment: Speci men Type: URINE SPECIMENOrdering Facility: [facility] Address: [address] [place] [address] Performed By: #### 2 4356-8 ####[facility]ORATORYCLIA [id number] [address] [place] Glucose Test strip (U) [Mass/Vol] Negative Normal Trace, Negative [facility] Comment on above: Order Comment: Speci men Type: URINE SPECIMENOrdering Facility: [facility] Address: [address] [place] [address] Performed By: #### 2 4356-8 ####[facility]ORATORYCLIA [id number] [address] [place] Hemoglobin Ql (U) Negative Normal Negative, Trace [facility] Comment on above: Order Comment: Speci men Type: URINE SPECIMENOrdering Facility: [facility] Address: [address] [place] [address] Performed By: #### 2 4356-8 ####[facility] LABORATORYCLIA [id number] [address] Ketones Ql (U) Negative Normal Negative, Trace [facility] Comment on above: Order Comment: Speci men Type: URINE SPECIMENOrdering Facility: [facility] Address: [address] [place] [address] Performed By: #### 2 4356-8 ####[facility] LABORATORYCLIA [id number] [address] [place] Leukocyte esterase Test strip Ql (U) Negative Normal Negative, 25 Seun/uL [facility] Comment on above: Order Comment: Speci men Type: URINE SPECIMENOrdering Facility: [facility] Address: [address] [place] [address] Performed By: #### 2 4356-8 ####[facility] LABORATORYCLIA [id number] [address] STATES OF [facility] Nitrite Ql (U) Negative Normal Negative [facility] Comment on above: Order Comment: Speci men Type: URINE SPECIMENOrdering Facility: [facility] Address: [address] [place] [address] Performed By: #### 2 4356-8 ####[facility]ORATORYCLIA [id number] [address] [place] pH (U) 6.5 [pH] Normal 5.0-8.0 [facility] Comment on above: Order Comment: Speci men Type: URINE SPECIMENOrdering Facility: [facility] Address: [address] [place] [address] Performed By: #### 2 4356-8 ####[facility] LABORATORYCLIA [id number] [address] Protein (U) [Mass/Vol] Negative Normal Trace , Negative [facility] Comment on above: Order Comment: Speci men Type: URINE SPECIMENOrdering Facility: [facility] Address: [address] [place] [address] Performed By: #### 2 4356-8 ####[facility] LABORATORYCLIA [id number] [address] RBC LM.HPF (Urine sed) [#/Area] 0-3 /HPF Normal 0-3 /HPF [facility] Comment on above: Order Comment: Speci men Type: URINE SPECIMENOrdering Facility: [facility] Address: [address] [place] [address] Performed By: #### 2 4356-8 ####[facility] LABORATORYCLIA [id number] [address] [place] Specific gravity (U) [Rel density] 1.004 Low 1.005-1.030 [facility] Comment on above: Order Comment: Speci men Type: URINE SPECIMENOrdering Facility: [facility] Address: [address] [place] [address] Performed By: #### 2 4356-8 ####[facility] LABORATORYCLIA [id number] [address] Urobilinogen Ql (U) Normal Normal Normal [facility] Comment on above: Order Comment: Speci men Type: URINE SPECIMENOrdering Facility: [facility] Address: [address] [place] [address] Performed By: #### 2 4356-8 ####[facility] LABORATORYCLIA [id number] [address] WBC LM.HPF (Urine sed) [#/Area] 0-5 /HPF Normal 0-5 /HPF [facility] Comment on above: Order Comment: Speci men Type: URINE SPECIMENOrdering Facility: [facility] Address: [address] [place] [address] Performed By: #### 2 4356-8 ####[facility] LABORATORYCLIA [id number] [address] [place] XR CHEST 2V FRONTAL/LATon [...] tissues: Unremarkable. IMPRESSION: No acute radiographic abnormality. Financial Aid Administrator: YAIR Transcribe Date/Time: Jul 18 2024 4:45P Dictated by : SUNITA SMITH MD This examination was interpreted and the report reviewed and electronically signed by: SUNITA SMITH MD on Jul 18 2024 4:46PM EST [id number] Normal [facility] aPTT PPPon 07-14-2024 aPTT Coag (PPP) [Time] 26.5 s Normal 23.0-32.4 [facility] Comment on above: Order Comment: Speci men Type: BLOOD SPECIMENOrdering Facility: [facility] Address: [address] [place] [address] Performed By: #### 3 4528-0, 33381-3 ####[facility] LABCLIA [id number] [place] [address] [place] Donna 06-21-2024 NABORN Telephone ([facility]) ELIS BILLS ([id number]) 1960 Date Time Provider Department 06/21/24 LOIS HOANG During your visit today, we [...] Encounter Status:Closed by STEPHANE BAZAN on 06/21/24 [facility] CNPNon 06-08-2024 CNPN Telephone ([facility]) ELIS BILLS ([id number]) 1960 Date Time Provider Department 06/08/24 SHELTON FLORES [facility] During your visit today, we recorded the following information about you: Dalia Merritt 06/08/2024 12:19 PM Signed Nebulizer orders signed AND faxed back to [facility]. Dalia Merritt Allergies As of Date: 06/08/2024 Noted [...] Status:Closed by DALIA MERRITT on 06/08/24 Normal [facility] CT CHEST WO IVCONon 06-08-20 CT CHEST WO IVCON * * *Final Report* * * DATE OF EXAM: Jun 08 2024 8:30AM [facility] 0541 - CT CHEST WO [...] fellow represents my interpretation of the study. Financial Aid Administrator: YAIR Transcribe Date/Time: Jun 08 2024 1:33P Dictated by : TAMEKA PIKE, DO This examination was interpreted and the report reviewed and electronically signed by: JAYMIE VALLEJO MD on Jun 08 2024 2:39PM EST [id number] N Normal [facility] CT Chest WO contraston 06-08 IMPRESSION: Multiple tiny 2-3 millimeter pulmonary nodules are present, overall decreased in conspicuity and size from the prior, likely resolving infectious/inflammato ry process. Recommend continued attention on follow-up in 6-12 months. I agree that this report by the resident or fellow represents my interpretation of the study. Financial Aid Administrator: YAIR Transcribe Date/Time: Jun 08 2024 1:33P Dictated by : TAMEKA PIKE, DO This examination was interpreted and the report reviewed and electronically signed by: JAYMIE VALLEJO MD on Jun 08 2024 2:39PM [facility] DIVISION OF RADIOLOGY * * *Final Report* * * DATE OF EXAM: Jun 08 2024 8:30AM [facility] 0541 - CT CHEST WO [...] Bilateral hip arthroplasties. DIVISION OF RADIOLOGY Provider, [facility] * * *Final Report* * * DATE OF EXAM: Jun 08 2024 8:30AM [facility] 0541 - CT CHEST WO [...] fellow represents my interpretation of the study. Financial Aid Administrator: YAIR Transcribe Date/Time: Jun 08 2024 1:33P Dictated by : TAMEKA PIKE, DO This examination was interpreted and the report reviewed and electronically signed by: JAYMIE VALLEJO MD on Jun 08 2024 2:39PM [facility] Radiology Study observation (narrative) [facility] CT Chest WO contrastOrdered By: Ccf Provider on 06-08-2024 [facility] CNOVon 06-05-2024 CNOV Office Visit (NEAGCLM) ELIS BILLS ([id number]) 1960 M Date Time Provider Department 06/05/24 9:15 AM LOIS HOANG NEAGCLM During your visit today, we recorded the following information about you: Pulse Respiration Blood pressure Weight 72/minute 20/minute 161/84 129.5 kg Lois Hoang MD 06/05/2024 10:19 AM Signed NEUROSURGERY FOLLOW UP OFFICE NOTE Lois Hoang MD [facility] Date of visit: June 05, 2024 Patient Name: Mr.Donald Tim Bills Date of : 1960 Current Age: [age] year old Sex: male MRN/E# [id number] Last Office Visit: 04/06/2024 Chief Complaint: Patient [...] Eyes: Neg (more content not included)... Normal [facility] XR LUMBAR 4V AP/LAT/ FLEX/EX Ton [...] anterolisthesis at L5-S1. Degenerative changes as described. Financial Aid Administrator: PSCB Transcribe Date/Time: Jun 08 2024 9:34A Dictated by : GOLD LUTHER MD This examination was interpreted and the report reviewed and electronically signed by: GOLD LUTHER MD on Jun 08 2024 9:42AM EST [id number] N [facility] 05-31-2024 [facility] Telephone ([facility]) ELIS BILLS ([id number]) 1960 M Date Time Provider Department 05/31/24 SHELTON FLORES [facility] During your visit today, we recorded [...] Encounter Status:Closed by DALIA MERRITT on 05/31/24 [facility] C[facility] Telephone (AGSPHWG) ELIS BILLS ([id number]) 1960 Date Time Provider Department 04/27/24 EVERTON [...] Date Reviewed: 04/27/2024 Reviewed by: Bertha Kaur APRN.DERRICK BUILDER - Fully Assessed Reason for Visit: Appointment [...] Encounter Status:Closed by VIVIAN FRIED on 04/28/24 Normal [facility] CNOVon 04-06-2024 CNOV Office Visit (NEAGCLM) ELIS BILLS ([id number]) 1960 M Date Time Provider Department 04/06/24 9:30 AM LOIS HOANG NEAGCLM During your visit today, we recorded the following information about you: Pulse Respiration Blood pressure Weight 74/minute 18/minute 154/89 128.5 kg Height 1.702 m Lois Hoang MD 04/06/2024 10:06 AM Signed NEUROSURGERY CONSULT NOTE Lois Hoang MD [facility] Date of visit: April 06, 2024 Patient Name: Mr.Donald Tim Bills Date of : 1960 Current Age: [age] year old Sex: male MRN/E# [id number] Last Office Visit: Visit date not found [...] SpO2 9 (more content not included)... Normal [facility] 03-31-2024 [facility] Telephone (AGSPINE1) ELIS BILLS ([id number]) 1960 M Date Time Provider Department 03/31/24 [facility] During your visit today, we recorded the [...] No 9. Does this procedure require a taxi driver supervisor? Yes If yes, has patient been notified that a taxi driver supervisor is needed and must be present at [...] Date Reviewed: 03/30/2024 Reviewed by: Bertha Kaur APRN.DERRICK BUILDER - Fully Assessed Reason for Visit: injection [...] Encounter Status:Closed by OZIEL RUBALCAVA on 03/31/24 [facility] Donna 03-30-2024 NABORN Telephone (SPAGWO) ELIS BILLS ([id number]) 1960 M Date Time Provider Department 03/30/24 DHIRAJ HERR During your visit today, we recorded the following information about you: Oziel Rubalcava 03/31/2024 8:20 AM Addendum B/L MBNB L3-L4, L4-L5, w fluoro Called pt to schedule procedure, LVM Oziel Rubalcava Allergies As of Date: 03/30/2024 Noted Allergy Reaction PENICILLINS 08/27/2014 16 - Unknown Date Reviewed: 03/30/2024 Reviewed by: Bertha Kaur APRN.DERRICK BUILDER - Fully Assessed Reason for Visit: Appointment [...] Encounter Status:Closed by [facility]EL [facility]CAVA [facility] ELIS BILLS ([id number]) 1960 M Date Time Provider Department 03/17/24 EVERTON SANCHEZ [facility] During your visit today, we recorded the [...] Encounter Status:Closed by STEPHAN CALHOUN on 03/17/24 [facility] 03-16-2024 NABORN Telephone (SPAGWO) ELIS BILLS ([id number]) 1960 M Date Time Provider Department 03/16/24 BERTHA KAUR During your visit today, we recorded the following information about you: Bertha Kaur APRN.CNP 03/16/2024 8:14 AM Signed Could you proof read this please. Thanks. Allergies As of Date: 03/16/2024 Noted Allergy Reaction PENICILLINS 08/27/2014 16 - Unknown Date Reviewed: 02/24/2024 Reviewed by: Bertha Kaur APRN.CNP - Fully Assessed Reason for Visit: Orders [...] Encounter Status:Closed by BERTHA KAUR on 03/16/24 [facility] CNPN Telephone (AGSPINE3) ELIS BILLS ([id number]) 1960 Date Time Provider Department 03/15/24 EVERTON SANCHEZ AGSPINE3 During your visit today, we recorded the following information about you: Chanda Mckee 03/15/2024 8:12 AM Signed ----- Message from Johnny [employer] sent at 03/14/2024 4:14 PM EDT ----- [...] with this appt. Was Patient Referred to [facility]/Seek Emergency Treatment (Y/N): n Did Patient Agree (Y/N): n Was An Attempt Made To Transfer The Patient To The Office (Y/N): n Were You Able To Reach Someone At The Office (Y/N): n If Yes - Patient Was Transferred To (Caregivers Name): n If No - Which [facility] [employer] Bar Waiter/Waitress Did You Speak With Regarding This Patient: n Was an appointment scheduled (Y/N): n/a Reason patient was requesting visit (RFV/signs and symptoms/diagnosis) : procedure Person calling if other than patient: Spouse, Mehreen Bills Return call to if other than patient: y Best contact number: [phone] Thank you, Johnny Hdez March 14, 2024 [...] Date Reviewed: 02/24/2024 Reviewed by: Bertha Kaur APRN.DERRICK BUILDER - Fully Assessed Reason for Visit: Patient Question [1477] Prescriptions as of 03/15/2024 - cyclobenzaprine (FLEXERIL) [...] 40 [E66.01] 12/01/2023 Encounter Status:Closed by CHANDA MCKEE on 03/15/24 [facility] Donna 03-13-2024 NABORN Telephone (AGSPINE3) ELIS BILLS ([id number]) 1960 M Date Time Provider Department 03/13/24 [...] date 03/08/2024 Insurance Case Information Insurance Name [facility] Patient's Insurance Case# [id number] Ordering Provider Bertha Kaur Approved Services N/A Denied Services [id number] - NJX DX/THER SBST INTRLMNR LMBR/SAC W/IMG GDN Alternative Recommendation N/A *Service which can be approved in place of denied service. Clinical Documentation Provided Office Visit 11/11/2023, 09/23/2023 [facility] 02/24/2024, 12/22/2023, 11/25/2023, 10/29/2023 Procedure 12/16/2023, 10/28/2023 CT CHEST WO IVCON 12/29/2023 XR CHEST 1V FRONTAL 12/01/2023 MRI LUMBAR SPINE WO IVCON 11/19/2023 CT CHEST WO IVCON 09/02/2023 Peer to Peer Instructions Peer to Peer , options: 1-2 Does Peer to Peer need to be scheduled? Yes Who can complete the Peer to Peer? Dr, PA, THIRD GRADE TEACHER, LN Additional Peer to Peer Instructions You can call for the peer to peer at the date and time of your convenience Appeal Instructions Appeal Address [address] [address], [facility], [address] Appeal Fax# No fax# available Required Form(s) Yes, Please see attached or can be found at [email or web address] (Humouno). Additional Appeal Instructions Send it attention to: Appeals department. Include: coversheet with patient's and case information, a formal appeal letter and attach any pertinent supporting clinical documentation. Also, insurance requires a formal appeal form filled out if you would like to submit a written appeal. Facility Information Location [facility] [id number] Tax ID# [id number] Vivian Fried 03/14/2024 8:34 AM Signed Please advise on how you would like to proceed. Vivian Franco 03/14/2024 3:59 PM Signed I have attempted to contact this patient by phone, Left brief message on cell MeeVeemail informing this patient of this denial and [...] Date Reviewed: 02/24/2024 Reviewed by: Bertha Kaur APRN.DERRICK BUILDER - Fully Assessed Reason for Visit: Insurance [...] thiamine (VITAMI (more content not included)... Normal [facility] 03-01-2024 CNCO Letter Text Normal [facility] 02-25-2024 CNCO Letter Text Normal [facility] 02-25-2024 [facility] ELIS BILLS ([id number]) 1960 M Date Time Provider Department 02/25/24 EVERTON SANCHEZ AGSPINE3 During your visit today, we recorded the following information about you: Diane Kaye 02/25/2024 11:09 AM Signed [facility] Management letter has been sent to the PCP, Pilar Lanza DO via facsimile. [phone] Adi Meyer PSS 02/29/2024 3:44 PM Signed Medical consent to stop taking Plavix for [address] Pilar Lanza on 02/28/2024. The consent form was received on 02/29/2024 and is scanned into the chart. GOOD UNTIL 08/30/2024 Adi Mascorro Hammett to Dr. Britton Burgos [facility] P: [id number] / F: [phone] / [email or web address] __ Diane Kaye 03/01/2024 11:05 AM Signed Called and LVM to schedule injection. Vivian Ramachandran 03/01/2024 11:55 AM Signed Patient has been scheduled with dr. Sanchez on 03/16/24. Vivian Fried Allergies As of Date: 02/25/2024 Noted Allergy Reaction PENICILLINS 08/27/2014 16 - Unknown Date Reviewed: 02/24/2024 Reviewed by: Bertha Kaur APRN.DERRICK BUILDER - Fully Assessed Reason for Visit: anticoagulation [...] Encounter Status:Closed by DIANE KAYE on 02/25/24 [facility] CNPN Telephone (AGSPHWG) ELIS BILLS ([id number]) 1960 M Date Time Provider Department 02/25/24 BERTHA KAUR AGSPHWG During your visit today, we recorded the following information about you: Rose Leal 02/25/2024 8:17 AM Signed Outbound Call to patient to schedule Injection - Epidural Steroid Injection - Interlaminar Approach (ILESI) under fluoroscopic guidance NONE at L4-5 (Currently Taking: Plavix needs 7 day hold) - Reached ; [facility] [phone] (cell/home) JASS Block Julie 03/03/2024 7:44 AM Signed Patient is scheduled for procedure and follow up JASS Block Allergies As of Date: 02/25/2024 Noted Allergy Reaction PENICILLINS 08/27/2014 16 - Unknown Date Reviewed: 02/24/2024 Reviewed by: Bertha Kaur APRN.DERRICK BUILDER - Fully Assessed Reason for Visit: Appointment [...] Encounter Status:Closed by ROSE LEAL on 02/25/24 [facility] CNPN Telephone (AGSPINE3) ELIS BILLS ([id number]) 1960 M Date Time Provider Department 02/25/24 [facility] During your visit today, we recorded the [...] No 9. Does this procedure require a taxi driver supervisor? Yes If yes, has patient been notified that a taxi driver supervisor is needed and must be present at [...] Date Reviewed: 02/24/2024 Reviewed by: Bertha Kaur APRN.DERRICK BUILDER - Fully Assessed Reason for Visit: Injections [...] Encounter Status:Closed by DIANE KAYE on 02/25/24 [facility] Donna 01-17-2024 CNPN Telephone ([facility]) ELIS BILLS ([id number]) 1960 M Date Time Provider Department 01/17/24 SHELTON FLORES [facility] During your visit today, we recorded the following information about you: Lindsey Delgado RN 01/17/2024 10:03 AM Signed TIMO: 11/11/2023 Future OV: 02/10/2024 Call transferred to Marie RN from [address] center. Mehreen, patient's called. Patient name [...] Date Reviewed: 12/21/2023 Reviewed by: Yashira Gonsales APRN.DERRICK BUILDER - Fully Assessed Reason for Visit: Illness [0883] Cmt: Marie RN covering urgent pulm sypmtom calls Order(s):predniSONE [...] breath (more content not included)... Normal [facility] 01-03-2024 [facility] Telephone ([facility]) ELIS BILLS ([id number]) 1960 Date Time Provider Department 01/03/24 ALEN MAYORGA [facility] During your visit today, we recorded [...] was unable to speak with patient. Sent [email or web address] message regarding message below. Alen Mayorga MD15 [...] Date Reviewed: 12/21/2023 Reviewed by: Yashira Gonsales APRN.DERRICK BUILDER - Fully Assessed Reason for Visit: Results [...] Status:Closed by ALEN MAYORGA on 01/03/24 Normal [facility] CT CHEST WO IVCONon 12-29-[address] CHEST WO IVCON * * *Final Report* * * DATE OF EXAM: Dec 29 2023 11:14AM [facility] 0541 - CT CHEST WO IVCON [...] obtained in 12 months --END OF FINDING-- Financial Aid Administrator: YAIR Transcribe Date/Time: Jan 03 2024 2:32P Dictated by : FRANCES MILIAN MD This examination was interpreted and the report reviewed and electronically signed by: FRANCES MILIAN MD on Jan 03 2024 2:47PM EST [id number] ACTIONABLE Invalid Interpretation Code [facility] ECHOon 12-29-2023 CONCLUSIONS: - Technically difficult [...] [facility] Echocardiography Report: Transthoracic Echo [facility] Date of service: 12/29/2023 10:25:10 [...] aorta 4.0 cm. [facility] Echocardiography Echocardiography Report: Transthoracic Echo [facility] Date of service: 12/29/2023 10:25:10 [...] * * Final * * * CC [employer] : [id number] micsSISUID Normal [facility] 12-17-2023 [facility] Telephone (AGSPHWG) ELIS BILLS ([id number]) 1960 Date Time Provider Department 12/17/23 DHIRAJ HERR [facility] During your visit today, we recorded the [...] Assessed Reason for Visit: Procedure Follow Up [8869] Cmt: MARCIAL Prescriptions as of 12/17/2023 - mometasone-formoterol (DULERA) [...] Encounter Status:Closed by GRETA GUILLEN on 12/17/23 [facility] Donna 12-14-2023 CNPN Telephone (AGSPINE3) ELIS BILLS ([id number]) 1960 Date Time Provider Department 12/14/23 BERTHA [...] Information Insurance Name MM Patient's Insurance Case# [id number] Ordering Provider Bertha Kaur Approved Services N/A Denied Services 90825 - NJX DX/THER AGT PVRT FACET JT LMBR/SAC 1 LEVEL 52744 - NJX DX/THER AGT PVRT FACET JT LMBR/SAC 2ND LEVEL Alternative Recommendation N/A *Service which can be approved in place of denied service. Clinical Documentation Provided [facility] 11/25/2023, 10/29/2023 FOLLOW UP APPOITNMENT WHEN PROVIDED SPECIFIED 12/02/2023 XR CHEST 1V FRONTAL 12/01/2023 MRI LUMBAR SPINE WO IVCON 11/19/2023 Peer to Peer Instructions Peer to Peer , options: 1-2 Does Peer to Peer need to be scheduled? Yes Who can complete the Peer to Peer? Dr, PA, THIRD GRADE TEACHER, LN Additional Peer to Peer Instructions You can call for the peer to peer at the date and time of your convenience Appeal Instructions Appeal Address [address] [address], [facility], [address] Appeal Fax# No fax# available Required Form(s) Yes, Please see attached or can be found at [email or web address] (Humouno). Additional Appeal Instructions Send it attention to: Appeals department. Include: coversheet with patient's and case information, a formal appeal letter and attach any pertinent supporting clinical documentation. Also, insurance requires a formal appeal form filled out if you would like to submit a written appeal. Facility Information Location [facility] [id number] Tax ID# [id number] Vivian Fried 12/15/2023 12:08 PM Signed Please [...] that we are looking for. Bertha Alcantara APRN.NABOR 12/24/2023 3:44 PM Signed I created a [...] available, please see details below: Appeal fax#: [phone] Appeal mailing address: [address] [address], [facility], [facility] Time frame limit: 60 calendar days from 01/04/2024 Attention to: Appeals dep (more content not included)... Normal [facility] CBC panel Auto (Bld)on 12-01 Erythrocyte distribution width (RBC) [Ratio] 14.2 % Normal 11.5-15.0 [facility] Comment on above: Order Comment: Speci men Type: BLOOD SPECIMENOrdering Facility: [facility] Address: [address] [place] [address] Performed By: #### 5 8410-2 ####[facility] LABCLIA [id number] [place] [address] [place] Hematocrit (Bld) [Volume fraction] 41.8 % Normal 39.0-51.0 [facility] Comment on above: Order Comment: Speci men Type: BLOOD SPECIMENOrdering Facility: [facility] Address: [address] [place] [address] Performed By: #### 5 8410-2 ####[facility] LABCLIA [id number] [place] [address] [facility] Hemoglobin (Bld) [Mass/Vol] 14.0 g/dL Normal 13.0-17.0 [facility] Comment on above: Order Comment: Speci men Type: BLOOD SPECIMENOrdering Facility: [facility] Address: [address] [place] [address] Performed By: #### 5 8410-2 ####[facility] LABCLIA [id number] [place] [address] [facility] [place] MCH (RBC) [Entitic mass] 29.4 pg Normal 26.0-34.0 [facility] Comment on above: Order Comment: Speci men Type: BLOOD SPECIMENOrdering Facility: [facility] Address: [address] [place] [address] Performed By: #### 5 8410-2 ####[facility] LABCLIA [id number] [place] [address] [facility] MCHC (RBC) [Mass/Vol] 33.5 g/dL Normal 30.5-36.0 [facility] Comment on above: Order Comment: Speci men Type: BLOOD SPECIMENOrdering Facility: [facility] Address: [address] [place] [address] Performed By: #### 5 8410-2 ####[facility] LABCLIA [id number] [place] [address] [place] MCV (RBC) [Entitic vol] 87.8 fL Normal 80.0-100.0 [facility] Comment on above: Order Comment: Speci men Type: BLOOD SPECIMENOrdering Facility: [facility] Address: [address] [place] [address] Performed By: #### 5 8410-2 ####[facility] LABCLIA [id number] [place] [address] [facility] Platelet mean volume (Bld) [Entitic vol] 9.1 fL Normal 9.0-12.7 [facility] Comment on above: Order Comment: Speci men Type: BLOOD SPECIMENOrdering Facility: [facility] Address: [address] [place] [address] Performed By: #### 5 8410-2 ####[facility] LABCLIA [id number] [facility] [place] [address] [facility] Platelets (Bld) [#/Vol] 298 10*3/uL Normal 150-400 [facility] Comment on above: Order Comment: Speci men Type: BLOOD SPECIMENOrdering Facility: [facility] Address: [address] [place] [address] Performed By: #### 5 8410-2 ####[facility] LABCLIA [id number] [facility] [place] [address] [facility] RBC (Bld) [#/Vol] 4.76 10*6/uL Normal 4.20-6.00 [facility] Comment on above: Order Comment: Speci men Type: BLOOD SPECIMENOrdering Facility: [facility] Address: [address] [place] [address] Performed By: #### 5 8410-2 ####[facility] LABCLIA [id number] [place], [place] [id number] [place] [address] WBC (Bld) [#/Vol] 7.31 10*3/uL Normal 3.70-11.00 [facility] Comment on above: Order Comment: Speci men Type: BLOOD SPECIMENOrdering Facility: [facility] Address: [address] [place] [address] Performed By: #### 5 8410-2 ####[facility] LABCLIA [id number] [place] [address] [facility] CNDSon 12-02-2023 CNDS HNO ID: [id number] Author: ALBERTINA DAVILA APRN.DERRICK BUILDER Service: Hospital Medicine Author Type: Nurse Practitioner Type: Discharge Summary Filed: 12/02/2023 11:00 Note Text: Attestation signed by Ji Fonseca MD at 12/10/2023 9:28 PM [facility] STAFF PHYSICIAN NOTE OF PERSONAL INVOLVEMENT IN [...] exacerbation (HCC) (POA: Yes) Ji Fonseca MD, [facility] Staff,Dept of Hospital Medicine December 10, [...] 12 hours. He reports he saw his gerentological physiotherapist on 11/11/23 who ordered two new inhalers. [...] agreeable to observation overnight, but only at [facility]. Patient was admitted for further management. [...] were finalized. [facility] and report the results to his PCP. Extreme education provided to patient on ETOH cessation and smoking cessation. Patient instructed on Fluid restriction of 1800mL daily (more content not included)... Normal [facility] Comprehensive metabolic 2000 panelon 12-02-2023 Albumin [Mass/Vol] 4.4 g/dL Normal 3.9-4.9 [facility] Comment on above: Order Comment: Speci brian Type: BLOOD SPECIMENOrdering Facility: [facility] Address: [address] [place] [address] Performed By: #### 6 00-7 #### [facility] CLIA [id number] [address] ALP [Catalytic activity/Vol] 99 U/L Normal 38-113 [facility] Comment on above: Order Comment: Karthikeyani brian Type: BLOOD SPECIMENOrdering Facility: [facility] Address: [address] [place] [address] Performed By: #### 6 00-7 #### [facility] CLIA [id number] [address] ALT With P-5'-P [Catalytic activity/Vol] 22 U/L Normal 10-54 [facility] Comment on above: Order Comment: Speci men Type: BLOOD SPECIMENOrdering Facility: [facility] Address: [address] [place] [address] Performed By: #### 6 00-7 #### [facility] CLIA [id number] [address] Anion gap [Moles/Vol] 12 mmol/L Normal 9-18 [facility] Comment on above: Order Comment: Speci men Type: BLOOD SPECIMENOrdering Facility: [facility] [facility] Address: [address] [place] [address] Performed By: #### 6 -7 #### [facility] CLIA [id number] [address] STATES OF [facility] AST With P-5'-P [Catalytic activity/Vol] 19 U/L Normal 14-40 [facility] Comment on above: Order Comment: Speci men Type: BLOOD SPECIMENOrdering Facility: [facility] Address: [address] [place] [address] Performed By: #### 6 00-7 #### [facility] CLIA [id number] [address] [place] Bilirubin [Mass/Vol] 0.5 mg/dL Normal 0.2-1.3 [facility] Comment on above: Order Comment: Speci men Type: BLOOD SPECIMENOrdering Facility: [facility] Address: [address] [place] [address] Performed By: #### 6 -7 #### [facility] CLIA [id number] [address] [place] Calcium [Mass/Vol] 9.7 mg/dL Normal 8.5-10.2 [facility] Comment on above: Order Comment: Speci men Type: BLOOD SPECIMENOrdering Facility: [facility] Address: [address] [place] [address] Performed By: #### 6 -7 #### [facility] CLIA [id number] 1 [place] [address] [place] Chloride [Moles/Vol] 92 mmol/L Low 97-105 [facility] Comment on above: Order Comment: Speci men Type: BLOOD SPECIMENOrdering Facility: [facility] Address: [address] [place] [address] Performed By: #### 6 00-7 #### [facility] CLIA [id number] 1 [place] [address] [place] CO2 [Moles/Vol] 25 mmol/L Normal 22-30 [facility] Comment on above: Order Comment: Speci men Type: BLOOD SPECIMENOrdering Facility: [facility] Address: [address] [place] [address] Performed By: #### 6 00-7 #### [facility] CLIA [id number] [address] OF [facility] Creatinine [Mass/Vol] 0.90 mg/dL Normal 0.73-1.22 [facility] Comment on above: Order Comment: Specoswaldo men Type: BLOOD SPECIMENOrdering Facility: [facility] Address: [address] [place] [address] Performed By: #### 6 00-7 #### [facility] CLIA [id number] [address] Creatinine and Glomerular filtration rate.predicted panel (S/P/Bld) 95 mL/min/1.73m??? Normal >=60 [facility] Comment on above: Order Comment: Wilbert torres Type: BLOOD SPECIMENOrdering Facility: [facility] Address: [address] [place] [address] Result Comment: Lala mated Glomerular Filtration Rate [...] GFR. Performed By: #### 6 00-7 #### [facility] CLIA [id number] [address] [place] Glucose [Mass/Vol] 122 mg/dL High 74-99 [facility] Comment on above: Order Comment: Wilbert torres Type: BLOOD SPECIMENOrdering Facility: [facility] Address: [address] [place] [address] Result Comment: The [place] Diabetes Association (ADA) provides guidance for cutoff [...] Standards of Medical Care in Diabetes 2016, [place] [employer]. Diabetes Care. 2016.39(Suppl 1). Performed By: #### 6 00-7 #### [facility] CLIA [id number] [address] [place] Potassium [Moles/Vol] 5.0 mmol/L Normal 3.7-5.1 [facility] Comment on above: Order Comment: Karthikeyani men Type: BLOOD SPECIMENOrdering Facility: [facility] Address: [address] [place] [address] Performed By: #### 6 -7 #### [facility] CLIA [id number] 1 [place] [address] [place] Protein [Mass/Vol] 7.7 g/dL Normal 6.3-8.0 [facility] Comment on above: Order Comment: Karthikeyani men Type: BLOOD SPECIMENOrdering Facility: [facility] Address: [address] [place] [address] Performed By: #### 6 -7 #### [facility] CLIA [id number] [address] [place] Sodium [Moles/Vol] 129 mmol/L Low 136-144 [facility] Comment on above: Order Comment: Speci men Type: BLOOD SPECIMENOrdering Facility: [facility] Address: [address] [place] [address] Performed By: #### 6 00-7 #### [facility] CLIA [id number] [address] [place] Urea nitrogen [Mass/Vol] 11 mg/dL Normal 9-24 [facility] Comment on above: Order Comment: Speci men Type: BLOOD SPECIMENOrdering Facility: [facility] Address: [address] [place] [address] Performed By: #### 6 00-7 #### [facility] CLIA [id number] [address] [place] Magnesium SerPl-mCncon 12-01 Magnesium [Mass/Vol] 2.3 mg/dL Normal 1.7-2.3 [facility] Comment on above: Order Comment: Speci men Type: BLOOD SPECIMENOrdering Facility: [facility] Address: [address] [place] [address] Performed By: #### 6 00-7 #### [facility] CLIA [id number] [address] OF [facility] NURSING PROGon 12-02-2023 NURSING PROG HNO ID: [id number] Author: RUBY MOTT RN Service: ? Author Type: Registered Nurse Type: Nursing Progress Note Filed: 12/02/2023 12:16 Note Text: Discharge instructions printed and explained to pt and spouse. Questions answered. Personal belongings with pt and spouse. Pt discharged via wheelchair. Pt d/c to home with . Normal [facility] TSH SerPl-aCncon 12-02-2023 TSH Qn 1.730 m[IU]/L Normal 0.270-4.200 [facility] Comment on above: Order Comment: Speci men Type: BLOOD SPECIMENOrdering Facility: [facility] Address: [address] [place] [address] Performed By: #### 6 00-7 #### [facility] CLIA [id number] [address] STATES OF [facility] Basic metabolic 2000 panelon 12-01-2023 Anion gap [Moles/Vol] 12 mmol/L Normal 9-18 [facility] Comment on above: Order Comment: Speci men Type: BLOOD SPECIMENOrdering Facility: [facility] Address: [address] [place] [address] Performed By: #### 3 2355-0 #### [facility] CLIA [id number] [address] Calcium [Mass/Vol] 9.0 mg/dL Normal 8.5-10.2 [facility] Comment on above: Order Comment: Speci men Type: BLOOD SPECIMENOrdering Facility: [facility] Address: [address] [place] [address] Performed By: #### 3 2355-0 #### [facility] CLIA [id number] [address] [place] Chloride [Moles/Vol] 87 mmol/L Low 97-105 [facility] Comment on above: Order Comment: Speci men Type: BLOOD SPECIMENOrdering Facility: [facility] Address: [address] [place] [address] Performed By: #### 3 2355-0 #### [facility] CLIA [id number] [address] [place] CO2 [Moles/Vol] 24 mmol/L Normal 22-30 [facility] Comment on above: Order Comment: Speci men Type: BLOOD SPECIMENOrdering Facility: [facility] Address: [address] [place] [address] Performed By: #### 3 2355-0 #### [facility] CLIA [id number] [address] [place] Creatinine [Mass/Vol] 0.88 mg/dL Normal 0.73-1.22 [facility] Comment on above: Order Comment: Speci men Type: BLOOD SPECIMENOrdering Facility: [facility] Address: [address] [place] [address] Performed By: #### 3 2355-0 #### [facility] CLIA [id number] [address] [place] Creatinine and Glomerular filtration rate.predicted panel (S/P/Bld) 96 mL/min/1.73m??? Normal >=60 [facility] Comment on above: Order Comment: Speci men Type: BLOOD SPECIMENOrdering Facility: [facility] Address: [address] [place] [address] Result Comment: Lala mated Glomerular Filtration Rate [...] GFR. Performed By: #### 3 2355-0 #### [facility] CLIA [id number] 1 [place] [address] [place] Glucose [Mass/Vol] 103 mg/dL High 74-99 [facility] Comment on above: Order Comment: Speci men Type: BLOOD SPECIMENOrdering Facility: [facility] Address: [address] [place] [address] Result Comment: The [place] Diabetes Association (ADA) provides guidance for cutoff [...] Standards of Medical Care in Diabetes 2016, [place] [employer]. Diabetes Care. 2016.39(Suppl 1). Performed By: #### 3 2355-0 #### [facility] CLIA [id number] 1 [place] [address] [place] Potassium [Moles/Vol] 4.3 mmol/L Normal 3.7-5.1 [facility] Comment on above: Order Comment: Speci men Type: BLOOD SPECIMENOrdering Facility: [facility] Address: [address] [id number] Performed By: #### 3 2355-0 #### [facility] CLIA [id number] 1 [place] [address] [place] Sodium [Moles/Vol] 123 mmol/L Low 136-144 [facility] Comment on above: Order Comment: Speci men Type: BLOOD SPECIMENOrdering Facility: [facility] Address: [address] [place] [address] Performed By: #### 3 2355-0 #### [facility] CLIA [id number] [address] STATES [facility] Urea nitrogen [Mass/Vol] 7 mg/dL Low 9-24 [facility] Comment on above: Order Comment: Speci men Type: BLOOD SPECIMENOrdering Facility: [facility] Address: [address] [place] [address] Performed By: #### 3 2355-0 #### [facility] CLIA [id number] [address] CBC W Auto Differential pane l (Bld)on 12-01-2023 Basophils (Bld) [#/Vol] 0.06 10*3/uL Normal <0.11 [facility] Comment on above: Order Comment: Speci men Type: BLOOD SPECIMENOrdering Facility: [facility] Address: [address] [place] [address] Performed By: #### 5 7021-8 ####[facility] [id number] [place] [address] [facility] Basophils/100 WBC (Bld) 0.9 % Normal [facility] Comment on above: Order Comment: Speci men Type: BLOOD SPECIMENOrdering Facility: [facility] Address: [address] [place] [address] Performed By: #### 5 7021-8 ####[facility]IA [id number] [place] [address] [facility] Differential cell count method Nom (Bld) Auto Normal [facility] Comment on above: Order Comment: Speci men Type: BLOOD SPECIMENOrdering Facility: [facility] Address: [address] [place] [address] Performed By: #### 5 7021-8 ####[facility]IA [id number] [place] [address] [facility] [place] Eosinophils (Bld) [#/Vol] 0.07 10*3/uL Normal <0.46 [facility] Comment on above: Order Comment: Speci men Type: BLOOD SPECIMENOrdering Facility: [facility] Address: [address] [place] [address] Performed By: #### 5 7021-8 ####[facility] [id number] [facility] [place] [address] [place] Eosinophils/100 WBC (Bld) 1.0 % Normal [facility] Comment on above: Order Comment: Speci men Type: BLOOD SPECIMENOrdering Facility: [facility] Address: [address] [place] [address] Performed By: #### 5 7021-8 ####[facility] [id number] [facility] [place] [address] [place] Erythrocyte distribution width (RBC) [Ratio] 14.1 % Normal 11.5-15.0 [facility] Comment on above: Order Comment: Speci men Type: BLOOD SPECIMENOrdering Facility: [facility] Address: [address] [place] [address] Performed By: #### 5 7021-8 ####[facility]CLIA [id number] [facility] [place] [address] [place] Hematocrit (Bld) [Volume fraction] 37.6 % Low 39.0-51.0 [facility] Comment on above: Order Comment: Speci men Type: BLOOD SPECIMENOrdering Facility: [facility] Address: [address] [place] [address] Performed By: #### 5 7021-8 ####[facility] [id number] [facility] [place] [place] [address] [place] Hemoglobin (Bld) [Mass/Vol] 13.0 g/dL Normal 13.0-17.0 [facility] Comment on above: Order Comment: Speci men Type: BLOOD SPECIMENOrdering Facility: [facility] Address: [address] [place] [address] Performed By: #### 5 7021-8 ####[facility] [id number] [facility] [address] [place] Immature granulocytes (Bld) [#/Vol] 0.04 10*3/uL Normal <0.10 [facility] Comment on above: Order Comment: Speci men Type: BLOOD SPECIMENOrdering Facility: [facility] Address: [address] [place] [address] Performed By: #### 5 7021-8 ####[facility] [id number] [place] [address] [place] [facility] Immature granulocytes/100 WBC (Bld) 0.6 % Normal [facility] Comment on above: Order Comment: Speci men Type: BLOOD SPECIMENOrdering Facility: [facility] Address: [address] [place] [address] Performed By: #### 5 7021-8 ####[facility] [id number] [facility] [place] [address] [place] Lymphocytes (Bld) [#/Vol] 1.24 10*3/uL Normal 1.00-4.00 [facility] Comment on above: Order Comment: Speci men Type: BLOOD SPECIMENOrdering Facility: [facility] Address: [address] [place] [address] Performed By: #### 5 7021-8 ####[facility]CLIA [id number] [place] [address] [facility] Lymphocytes/100 WBC (Bld) 18.2 % Normal [facility] Comment on above: Order Comment: Speci men Type: BLOOD SPECIMENOrdering Facility: [facility] Address: [address] [place] [address] Performed By: #### 5 7021-8 ####[facility] [id number] [place] [address] [facility] [place] MCH (RBC) [Entitic mass] 29.5 pg Normal 26.0-34.0 [facility] Comment on above: Order Comment: Speci men Type: BLOOD SPECIMENOrdering Facility: [facility] Address: [address] [place] [address] Performed By: #### 5 7021-8 ####[facility] LABCLIA [id number] [place] [address] [facility] MCHC (RBC) [Mass/Vol] 34.6 g/dL Normal 30.5-36.0 [facility] Comment on above: Order Comment: Speci men Type: BLOOD SPECIMENOrdering Facility: [facility] Address: [address] [place] [address] Performed By: #### 5 7021-8 ####[facility] LABCLIA [id number] [place] [id number] [place] [facility] MCV (RBC) [Entitic vol] 85.3 fL Normal 80.0-100.0 [facility] Comment on above: Order Comment: Speci men Type: BLOOD SPECIMENOrdering Facility: [facility] Address: [address] [place] [address] Performed By: #### 5 7021-8 ####[facility] [id number] [place] [address] [facility] Monocytes (Bld) [#/Vol] 0.89 10*3/uL High <0.87 [facility] Comment on above: Order Comment: Speci men Type: BLOOD SPECIMENOrdering Facility: [facility] Address: [address] [place] [address] Performed By: #### 5 7021-8 ####[facility]CLIA [id number] [place] [address] [facility] Monocytes/100 WBC (Bld) 13.1 % Normal [facility] Comment on above: Order Comment: Speci men Type: BLOOD SPECIMENOrdering Facility: [facility] Address: [address] [place] [address] Performed By: #### 5 7021-8 ####[facility] [id number] [place] [address] [place] Neutrophils (Bld) [#/Vol] 4.50 10*3/uL Normal 1.45-7.50 [facility] Comment on above: Order Comment: Speci men Type: BLOOD SPECIMENOrdering Facility: [facility] Address: [address] [place] [address] Performed By: #### 5 7021-8 ####[facility] LABCLIA [id number] [place] [address] [place] Neutrophils/100 WBC (Bld) 66.2 % Normal [facility] Comment on above: Order Comment: Speci men Type: BLOOD SPECIMENOrdering Facility: [facility] Address: [address] [place] [address] Performed By: #### 5 7021-8 ####[facility] [id number] [place] [address] [place] Nucleated RBC (Bld) [#/Vol] Normal [facility] Comment on above: Order Comment: Speci men Type: BLOOD SPECIMENOrdering Facility: [facility] Address: [address] [place] [address] Performed By: #### 5 7021-8 ####[facility] [id number] [place] [address] [place] Nucleated RBC/100 WBC (Bld) [Ratio] Normal [facility] Comment on above: Order Comment: Speci men Type: BLOOD SPECIMENOrdering Facility: [facility] Address: [address] [place] [address] Performed By: #### 5 7021-8 ####[facility] LABCLIA [id number] [place] [address] [place] Platelet mean volume (Bld) [Entitic vol] 8.8 fL Low 9.0-12.7 [facility] Comment on above: Order Comment: Speci men Type: BLOOD SPECIMENOrdering Facility: [facility] Address: [address] [place] [address] Performed By: #### 5 7021-8 ####[facility] [id number] [facility] [place] [address] [facility] [place] Platelets (Bld) [#/Vol] 242 10*3/uL Normal 150-400 [facility] Comment on above: Order Comment: Speci men Type: BLOOD SPECIMENOrdering Facility: [facility] Address: [address] [place] [address] Performed By: #### 5 7021-8 ####[facility] [id number] [facility] [place] [address] [facility] RBC (Bld) [#/Vol] 4.41 10*6/uL Normal 4.20-6.00 [facility] Comment on above: Order Comment: Speci men Type: BLOOD SPECIMENOrdering Facility: [facility] Address: [address] [place] [address] Performed By: #### 5 7021-8 ####[facility] LAB[facility]IA [id number] [facility] [address] [facility] WBC (Bld) [#/Vol] 6.80 10*3/uL Normal 3.70-11.00 [facility] Comment on above: Order Comment: Speci men Type: BLOOD SPECIMENOrdering Facility: [facility] Address: [address] [place] [address] Performed By: #### 5 7021-8 ####[facility] LABCLIA [id number] [facility] [address] [facility] ECG COMPLETEon 12-01-2023 ECG COMPLETE Ventricular Rate : 6 9 BPM Atrial Rate : 69 BPM P-R Interval : 138 ms QRS Duration : 126 ms Q-T Interval : 450 ms QTC Calculation(Bazett) : 482 ms Calculated P Rhine : -13 degrees Calculated R Rhine : 78 degrees Calculated T Rhine : 24 degrees SINUS RHYTHM WITH PREMATURE SUPRAVENTRICULAR COMPLEXES RIGHT BUNDLE BRANCH BLOCK ABNORMAL ECG NO PREVIOUS ECGS AVAILABLE Confirmed by MD ERICK, DEANN ([id number]) on 12/03/2023 4:27:07 PM NAME : ELIS BILLS PID : [id number] : 1960 Gender : Male Race : ORD : [id number] Procedure Date : Dec 01 2023 09:50:21 Edit Date : Dec 03 2023 16:27:10 Diagnosis: SINUS RHYTHM WITH PREMATURE SUPRAVENTRICULAR COMPLEXES RIGHT BUNDLE BRANCH BLOCK ABNORMAL ECG NO PREVIOUS ECGS AVAILABLE Confirmed by MD SUAREZ VINAYAK ([id number]) on 12/03/2023 4:27:07 PM Test Reason : Shortness of Breath Location : 191 : [facility] ED Overread By : MD SUAREZ VINAYAK Edited By : MD SUAREZ VINAYAK Referred By : , Acquired by : DAREN RUCKER [facility] ED NOTEon 12-01-2023 ED NOTE HNO ID: [id number] Author: JORGE JONES RN Service: Nursing Author Type: Registered Nurse Type: ED Notes Filed: 12/01/2023 12:48 Note Text: Patient resting in bed with spouse at bedside. This RN notified patient of room assignment. [facility] ED NOTE HNO ID: [id number] Author: JORGE JONES RN Service: Nursing Author Type: Registered Nurse Type: ED Notes Filed: 12/01/2023 10:59 Note Text: Patient ambulated to bathroom with steady gait. He returned to room 12 SOB, and feeling unchanged from when he arrived. [facility] ED NOTE HNO ID: [id number] Author: JORGE JONES RN Service: Nursing Author Type: Registered Nurse Type: ED Notes Filed: 12/01/2023 09:34 Note Text: Wednesday patient started to feeling winded and it has progressed to SOB with rest or activity. He has used several albuterol treatments at home with no improvement of symptoms. He denies fever but reports a productive cough. No home oxygen needs for his COPD. [facility] ED PROV NOTEon 12-01-2023 ED PROV NOTE HNO ID: [id number] Author: KEYONA CARL DO Service: Emergency Medicine [...] within n (more content not included)... Normal [facility] FLUABV+SARS-CoV-2+RSV Pnl Re sp YADIRA+probeon 05-15-2024 FLUABV+SARS-CoV-2+RSV Pnl Resp YADIRA+probe COVID 19 RESULT: Not detected The method used is RT-PCR or an equivalent NAAT method. Reference Range(the expected result in uninfected individuals): Not detected INFLUENZA A PCR: Not detected INFLUENZA B PCR: Not detected RSV PCR: Not detected Normal [facility] Comment on above: Performed By: #### 9 5941-1 ####[facility] [id number] [address] [place] HIGH SENSITIVITY TROPONIN T (INITIAL)on 12-01-2023 Troponin T.cardiac High sensitivity method [Mass/Vol] 31 ng/L High <12 [facility] Comment on above: Order Comment: Wilbert torres Type: BLOOD SPECIMENOrdering Facility: [facility] Address: [address] [place] [address] Result Comment: When assessing risk for acute [...] MACE. Performed By: #### 6 00-7 #### [facility] CLIA [id number] [address] OF [facility] HIGH SENSITIVITY TROPONIN T (SECOND)on 12-01-2023 Troponin T.cardiac High sensitivity method [Mass/Vol] 29 ng/L High <12 [facility] Comment on above: Order Comment: Wilbert men Type: BLOOD SPECIMENOrdering Facility: [facility] Address: [address] [place] [address] Result Comment: When assessing risk for acute [...] MACE. Performed By: #### 6 00-7 #### [facility] CLIA [id number] [address] HIGH SENSITIVITY TROPONIN T (THIRD) 3 HRS AFTER INITIALon 12-01-2023 Troponin T.cardiac High sensitivity method [Mass/Vol] 24 ng/L High <12 [facility] Comment on above: Order Comment: Speci men Type: BLOOD SPECIMENOrdering Facility: [facility] [facility] Address: [facility] [place] [address] Result Comment: When assessing risk for acute [...] MACE. Performed By: #### 3 2355-0 #### [facility] CLIA [id number] [address] HISTORY PHYSICALon HISTORY PHYSICAL HNO ID: [id number] Author: ALBERTINA DAVILA APRN.DERRICK BUILDER Service: Hospital Medicine Author Type: Nurse Practitioner Type: H&P Filed: 12/01/2023 15:07 Note Text: Attestation signed by Ji Fonseca MD at 12/10/2023 9:25 PM [facility] STAFF PHYSICIAN NOTE OF PERSONAL INVOLVEMENT IN [...] exacerbation (HCC) (POA: Yes) Ji Fonseca MD, FACP [facility] Staff,Dept of Hospital Medicine December 10, 2023 9:25 PM Pager:Click here to page DEPARTMENT OF HOSPITAL MEDICINE HISTORY AND PHYSICAL EXAM SERVICE DATE: 12/01/2023 SERVICE TIME: 1:45 PM Primary Care Physician: Pilar Lanza DO NIGHT AND WEEKEND COVERAGE: [facility] Medicine ROMÁN 7a-7p Page [phone] 7p-5c Subjective CHIEF COMPLAINT: SOB HPI: This is [...] 12 hours. He reports he saw his gerentological physiotherapist on 11/11/23 who ordered two new inhalers. [...] agreeable to observation overnight, but only at [facility]. Patient will be admitted for further [...] He is (more content not included)... Normal [facility] NT-proBNP SerPl-mCncon 11-30 Natriuretic peptide.B prohormone N-Terminal [Mass/Vol] 214 pg/mL High <125 [facility] Comment on above: Order Comment: Speci men Type: BLOOD SPECIMENOrdering Facility: [facility] Address: [address] [place] [address] Performed By: #### 3 2355-0 #### [facility] CLIA [id number] [address] [place] [address] STATES OF [facility] NURSING PROGon 12-01-2023 NURSING PROG HNO ID: [id number] Author: ARI HATCH, NEENA Service: Nursing Author Type: Registered Nurse Type: Nursing Progress Note Filed: 12/01/2023 15:46 Note Text: Pt arrived to floor per w/c from ER. Pt admitted to room 102. Dx: COPD Exac . All treatments and procedures were explained. Pt oriented to room and unit. SOB noted from ambulation from chair to bed. Pt denies any pain. Pt c/odiscomfort. present in room. Normal [facility] Osmolality SerPlon Osmolality [Osmolality] 262 mosm/kg Low 275-300 [facility] Comment on above: Order Comment: Speci men Type: BLOOD SPECIMENOrdering Facility: [facility] Address: [address] [place] [address] Performed By: #### 6 00-7 #### [facility] CLIA [id number] [address] [place] Osmolality Uron 12-01-2023 Osmolality (U) [Osmolality] 111 mosm/kg Normal 50-1200 [facility] Comment on above: Order Comment: Speci men Type: URINE SPECIMENOrdering Facility: [facility] Address: [address] [place] [address] Performed By: #### 2 695-5 ####[facility] LABCLIA [id number] [place] [address] [place]#### 539[address]-2 ####[facility] [id number] [address] [place] Procalcitonin SerPl-mCncon 0 12-01-2023 Procalcitonin [Mass/Vol] 0.08 ng/mL Normal <0.09 [facility] Comment on above: Order Comment: Speci men Type: BLOOD SPECIMENOrdering Facility: [facility] Address: [address] [place] [address] Result Comment: For a guided interpretation of test results, please visit the [facility] in Procalcitonin Calculator, [email or web address]. Performed By: #### 3 2355-0 #### [facility] CLIA [id number] [address] [place] Sodium ?Tm Ur-sCncon 024 Sodium Unsp time (U) [Moles/Vol] <20 Normal 14-216 [facility] Comment on above: Order Comment: Speci men Type: URINE SPECIMENOrdering Facility: [facility] Address: [address] [place] [address] Performed By: #### 2 695-5 ####[facility] LABCLIA [id number] [place] [address] [place]#### 15[address]-5 ####[facility] [id number] [address] [place] Urate SerPl-mCncon Urate [Mass/Vol] 6.8 mg/dL Normal 4.0-8.1 [facility] Comment on above: Order Comment: Speci men Type: BLOOD SPECIMENOrdering Facility: [facility] Address: [address] [place] [address] Performed By: #### 3 2355-0 #### [facility] CLIA [id number] [address] STATES OF [facility] XR CHEST 1V FRONTALon 2023 XR CHEST [...] right basilar opacity suggesting atelectasis. Mild cardiomegaly. Financial Aid Administrator: YAIR Transcribe Date/Time: Dec 01 2023 10:52A Dictated by : JUAERZ RODAS MD This examination was interpreted and the report reviewed and electronically signed by: JUARZE RODAS MD on Dec 01 2023 10:57AM EST [id number] N Normal [facility] ELIS BILLS ([id number]) 1960 M Date Time Provider Department 11/21/23 BERTHA KAUR [facility] MARYVALEEnrique During your visit today, we recorded the [...] on 11/25/2023 to discuss MRI Albertina Martin Hammett to Dr. Everton Sanchez MD / Bertha Kaur CNP, APRN [facility] Spine [facility] Pain Call [address] [place] [address] Phone. [phone] / Fax. [phone] Allergies As of Date: 11/21/2023 Noted Allergy Reaction PENICILLINS 08/27/2014 16 - Unknown Date Reviewed: 11/19/2023 Reviewed by: Malena Yoder, care taker - Fully Assessed Prescriptions as of 11/23/2023 [...] Encounter Status:Closed by ALBERTINA MARTIN on 11/23/23 Normal [facility] MR Lumbar spine WO sarbjito n 11-19-2023 IMPRESSION: Subacute compression fracture deformity [...] and assume there are 5 lumbar-type vertebrae. Financial Aid Administrator: YAIR Transcribe Date/Time: Nov 19 2023 3:30P Dictated by : MECHELLE EDMONDSON MD This examination was interpreted and the report reviewed and electronically signed by: MECHELLE EDMONDSON MD on Nov 19 2023 3:44PM [facility] DIVISION OF RADIOLOGY * * *Final [...] and assume there are 5 lumbar-type vertebrae. Financial Aid Administrator: PSCB Transcribe Date/Time: Nov 19 2023 3:30P Dictated by : MECHELLE EDMONDSON MD This examination was interpreted and the report reviewed and electronically signed by: MECHELLE EDMONDSON MD on Nov 19 2023 3:44PM EST [facility] Radiology Study observation (narrative) [facility] MR Lumbar spine WO contrastO rdered By: Ccf Provider on 11-19-2023 [facility] ALLIED HEALTHon 09-02-2023 ALLIED HEALTH HNO ID: [id number] Author: ERMIAS HAHN RT(R) Service: Radiology Author [...] PATIENT PRESENTS WITH AN IMPLANTABLE OR ATTACHED BUCKLE SEWER: No RADIOLOGY DEPARTMENT: CT; Exam(s) Completed: Chest PERIPHERAL IV DATA: Not applicable SIGNED BY: RT Chyna(R) September 02, 2023 1:16 PM [facility] CT CHEST WO IVCONon 09-02-19 CT CHEST WO IVCON * * *Final Report* * * DATE OF EXAM: Sep 02 2023 1:21PM [facility] [id number] - CT CHEST WO IVCON / [...] No abnormality in the imaged upper abdomen. Geriatric Nursing Assistant (topogram) images: No additional findings. IMPRESSION: No [...] obtained in 12 months --END OF FINDING-- Financial Aid Administrator: YAIR Transcribe Date/Time: Sep 05 2023 11:40A Dictated by : WILLIAM QUINTANA MD This examination was interpreted and the report reviewed and electronically signed by: WILLIAM QUINTANA MD on Sep 05 2023 11:47AM EST [id number] N ACTIONABLE Invalid Interpretation Code [facility] NITRIC OXIDE, EXHALEDon - [facility] SPIROMETRY WITH DILATOR IF O BSTRUCTEDon 08-20-2023 SNK29-29% PRE (L/S) 0.90 L/S [facility] FEV1 PRE (L) 1.70 L [facility] FEV1/FVC PRE (%) 70 % [facility] FVC PRE (L) 2.44 L [facility] PEF PRE (L/S) 5.67 L/S [facility] Basophil percentageOrdered B y: Pilar Lanza on 02-20-2023 Bilirubin [Mass/Vol] 0.60 mg/dL 0.20-1.00 [facility] Comment on above: For patients on eltr ombopag therapy, use of Dimension [place] TBIL is not recommended. Chloride [Moles/Vol] 101 mmol/L 98-107 [facility] Cholesterol [Mass/Vol] 89 mg/dL <200 [facility] Comment on above: <200 mg/dL Desirable 200-240 mg/dL Borderline >240 mg/dL High Risk Glucose [Mass/Vol] 102 mg/dL 74-106 [facility] Comment on above: Fasting Glucose resu lt from 100 to 125 mg/dL suggests IMPAIRED HOMEOSTASIS per A.D.A. criteria. Potassium [Moles/Vol] 4.7 mmol/L 3.5-5.1 [facility] Protein [Mass/Vol] 7.3 g/dL 6.4-8.2 [facility] Sodium [Moles/Vol] 135 mmol/L 136-145 [facility] Triglyceride [Mass/Vol] 54 mg/dL <199 [facility] Comment on above: The drugs N-Acetylcy steine and Metamizole may falsely depress this assay.Serum Triglycerides Reference Interval Normal <150 mg/dL Borderline high 150 - 199 mg/dL High 200 - 499 mg/dL Very High > or = 500 mg/dL WBC (Bld) [#/Vol] 7.7 10*3/uL 4.4-11.0 [facility] Blood erythrocytes count (nu mber/volume)Ordered By: Pilar Lanza on 02-20-2023 RBC (Bld) [#/Vol] 4.46 10*6/uL 4.6-6.2 [facility] Blood hemoglobin measurement (mass/volume)Ordered By: Pilar Lanza on 02-20-2023 Hemoglobin (Bld) [Mass/Vol] 13.2 g/dL 13.0-16.5 [facility] Blood platelet mean volumeOr dered By: Pilar Lanza on 02-20-2023 Platelet mean volume (Bld) [Entitic vol] 9.4 fL 6.2-12.0 [facility] Determination of erythrocyte mean corpuscular volume (MCV)Ordered By: Pilar Lanza on 02-20-2023 MCV (RBC) [Entitic vol] 88.8 fL 80-94 [facility] Hematocrit Auto (Bld) [Volum e fraction]Ordered By: Pilar Lanza on 02-20-2023 Hematocrit (Bld) [Volume fraction] 39.6 % 40-54 [facility] - Chemistry and C hemistry - challengeOrdered By: Pilar Lanza on 02-20-2023 ALP [Catalytic activity/Vol] 71 U/L 45-117 [facility] ALT [Catalytic activity/Vol] 26 U/L 16-61 [facility] CO2 [Moles/Vol] 29.0 mmol/L 21.0-32.0 [facility] Globulin (S) [Mass/Vol] 3.6 g/dL 2.2-4.2 [facility] Urea nitrogen/Creatinine [Mass ratio] 12.3 mg/mg 10-20 [facility] - Hematology and Cell countsOrdered By: Pilar Lanza on 02-20-2023 Erythrocyte distribution width (RBC) [Entitic vol] 44.9 fL 35.1-43.9 [facility] Erythrocyte distribution width (RBC) [Ratio] 13.8 % 11.6-14.6 [facility] MCH (RBC) [Entitic mass] 29.6 pg 27.0-32.0 [facility] MCHC Auto (RBC) [Mass/Vol]Or dered By: Pilar Lanza on 02-20-2023 MCHC (RBC) [Mass/Vol] 33.3 g/dL 32-36 [facility] No Panel InformationOrdered By: Pilar Lanza on 02-20-2023 Estimated GFR (MDRD) Amer 99 mL/min >60 [facility] Comment on above: GFR Calc Estimated GFR (MDRD) Non-Af Amer 82 mL/min >60 [facility] Comment on above: Non- GFR Calc Prostate Specific Antigen Screen 0.77 ng/mL 0.00-4.00 [facility] Comment on above: This test was perfor med using the TPSA assay method for [employer] chemistry system. Values obtained with differentassay methods cannot be used interchangably.When changing PSA assays in the course of monitoring apatient, additional sequential testing should be carriedout to confirm baseline values. Platelets bldOrdered By: Jeffrey Lanza on 02-20-2023 Platelets (Bld) [#/Vol] 250 10*3/uL 150-450 [facility] Serum or plasma albumin sidra urement (mass/volume)Ordered By: Pilar Lanza on 02-20-2023 Albumin [Mass/Vol] 3.7 g/dL 3.2-5.0 [facility] Serum or plasma albumin/glob ulin mass ratioOrdered By: Pilar Lanza on 02-20-2023 Albumin/Globulin [Mass ratio] 1.0 {ratio} 0.9-2.4 [facility] Serum or plasma calcium sidra urement (mass/volume)Ordered By: Pilar Lanza on 02-20-2023 Calcium [Mass/Vol] 8.7 mg/dL 8.5-10.1 [facility] Serum or plasma cholesterol in HDL measurement (mass/volume)Ordered By: Pilar Lanza on 02-20-2023 Cholesterol in HDL [Mass/Vol] 48 mg/dL >40 [facility] Comment on above: The drugs N-Acetylcy steine and Metamizole may falsely depress this assay. Reference Range HDL <40 mg/dL Low HDL Cholesterol HDL >or= 60 mg/dL High HDL Cholesterol Serum or plasma cholesterol in VLDL measurement (mass/volume)Ordered By: Pilar Lanza on 02-20-2023 Cholesterol in VLDL [Mass/Vol] 11 mg/dL 5-40 [facility] Serum or plasma creatinine m easurement (mass/volume)Ordered By: Pilar Lanza on 02-20-2023 Creatinine [Mass/Vol] 0.98 mg/dL 0.70-1.30 [facility] Comment on above: The validity of the calculated GFR & GFRAA in patients over 70 years has not been determined. Clinical correlation is essential. Serum or plasma low density lipoprotein (LDL) cholesterol measurement (mass/volume)Ordered By: Pilar Lanza on 02-20-2023 Cholesterol in LDL [Mass/Vol] 30 mg/dL 0-130 [facility] Serum or plasma urea nitroge n measurement (mass/volume)Ordered By: Pilar Lanza on 02-20-2023 Urea nitrogen [Mass/Vol] 12 mg/dL 7-18 [facility] Thin prep Papanicolaou smear with manual screeningOrdered By: Pilar Lanza on 02-20-2023 Thin prep Papanicolaou smear with manual screening 17 U/L 15-37 [facility] Thin prep Papanicolaou smear with manual screening 5 5-15 [facility] Basophil percentageon 2021 Bilirubin [Mass/Vol] 0.60 mg/dL 0.20-1.00 [facility] Work Phone: Comment on above: For patients on eltr ombopag therapy, use of Dimension [place] TBIL is not recommended. Chloride [Moles/Vol] 102 mmol/L 98-107 [facility] Work Phone: Cholesterol [Mass/Vol] 86 mg/dL <200 [facility] Work Phone: Comment on above: <200 mg/dL Desirable 200-240 mg/dL Borderline >240 mg/dL High Risk Glucose [Mass/Vol] 98 mg/dL 74-106 [facility] Work Phone: Potassium [Moles/Vol] 4.3 mmol/L 3.5-5.1 [facility] Work Phone: Protein [Mass/Vol] 7.0 g/dL 6.4-8.2 [facility] Work Phone: Sodium [Moles/Vol] 134 mmol/L 136-145 [facility] Work Phone: Triglyceride [Mass/Vol] 51 mg/dL <199 [facility] Work Phone: Comment on above: The drugs N-Acetylcy steine and Metamizole may falsely depress this assay.Serum Triglycerides Reference Interval Normal <150 mg/dL Borderline high 150 - 199 mg/dL High 200 - 499 mg/dL Very High > or = 500 mg/dL Laboratory - Chemistry and C hemistry - challengeon 02-07-2022 ALP [Catalytic activity/Vol] 79 U/L 45-117 [facility] Work Phone: ALT [Catalytic activity/Vol] 30 U/L 16-61 [facility] Work Phone: CO2 [Moles/Vol] 27.0 mmol/L 21.0-32.0 [facility] Work Phone: Globulin (S) [Mass/Vol] 3.5 g/dL 2.2-4.2 [facility] Work Phone: Urea nitrogen/Creatinine [Mass ratio] 6.2 mg/mg 10-20 [facility] Work Phone: No Panel Informationon 02-07 Estimated GFR (MDRD) Amer 102 mL/min >60 [facility] Work Phone: Comment on above: GFR Calc Estimated GFR (MDRD) Non-Af Amer 84 mL/min >60 [facility] Work Phone: Comment on above: Non- GFR Calc Prostate Specific Antigen Screen 0.99 ng/mL 0.00-4.00 [facility] Work Phone: Comment on above: This test was perfor med using the TPSA assay method for thePrecisionDemandhhgregg chemistry system. Values obtained with differentassay methods cannot be used interchangably.When changing PSA assays in the course of monitoring apatient, additional sequential testing should be carriedout to confirm baseline values. Serum or plasma albumin sidra urement (mass/volume)on 02-07-2022 Albumin [Mass/Vol] 3.5 g/dL 3.2-5.0 [facility] Work Phone: Serum or plasma albumin/glob ulin mass ratioon 02-07-2022 Albumin/Globulin [Mass ratio] 1.0 {ratio} 0.9-2.4 [facility] Work Phone: Serum or plasma calcium sidra urement (mass/volume)on 02-07-2022 Calcium [Mass/Vol] 8.7 mg/dL 8.5-10.1 [facility] Work Phone: Serum or plasma cholesterol in HDL measurement (mass/volume)on 02-07-2022 Cholesterol in HDL [Mass/Vol] 41 mg/dL >40 [facility] Work Phone: Comment on above: The drugs N-Acetylcy steine and Metamizole may falsely depress this assay. Reference Range HDL <40 mg/dL Low HDL Cholesterol HDL >or= 60 mg/dL High HDL Cholesterol Serum or plasma cholesterol in VLDL measurement (mass/volume)on 02-07-2022 Cholesterol in VLDL [Mass/Vol] 10 mg/dL 5-40 [facility] Work Phone: Serum or plasma creatinine m easurement (mass/volume)on 02-07-2022 Creatinine [Mass/Vol] 0.96 mg/dL 0.70-1.30 [facility] Work Phone: Comment on above: The validity of the calculated GFR & GFRAA in patients over 70 years has not been determined. Clinical correlation is essential. Serum or plasma low density lipoprotein (LDL) cholesterol measurement (mass/volume)on 02-07-2022 Cholesterol in LDL [Mass/Vol] 35 mg/dL 0-130 [facility] Work Phone: Serum or plasma urea nitroge n measurement (mass/volume)on 02-07-2022 Urea nitrogen [Mass/Vol] 6 mg/dL 7-18 [facility] Work Phone: Thin prep Papanicolaou smear with manual screeningon 02-07-2022 Thin prep Papanicolaou smear with manual screening 17 U/L 15-37 [facility] Work Phone: Thin prep Papanicolaou smear with manual screening 5 5-15 [facility] Work Phone: Serum or plasma severe acute respiratory syndrome coronavirus 2 (SARS-CoV-2) IgG antion 01-31-2022 SARS-CoV-2 (COVID-19) IgG IA Ql See comment [facility] Work Phone: Comment on above: TEST RESULT LIMITSSA RS-CoV-2 Antibody, [id number] Semi-Quant IgG Ab A, 47.8 AU/mL Neg <13.0SARS-CoV-2 Cl Ab Interp A, PositiveAntibodies against the SARS-CoV-2 spike protein, including the receptor binding domain (RBD) were detected. It is not yet known what level of antibody to SARS-CoV-2 spike protein correlates to immunity against developing symptomatic SARS-CoV-2 disease.This assay was performed using Dsg.nr Liaison(R) SARS-CoV-2 Trimeric S IgG assay.CommentsA: This [...] other viruses or pathogens. TESTING PERFORMED AT [facility]. ORIGINAL REPORT ON FILE IN LAB CONTAINS ADDITIONAL TEST SITE INFORMATION. .GFRon 12-30-2019 GFR 87 ml/min/1.73sqm Normal Count Includes [facility] ([place]) Comment on above: Result Comment: GFR Population [...] By: #### L IPID, CMP, GFR #### [address] [address] GFR Non- 72 ml/min/1.73sqm Normal Count Includes [facility] ([place] Comment on above: Result Comment: GFR Population [...] By: #### L IPID, CMP, GFR #### [address] [address] CMPon 12-30-2019 Albumin [Mass/Vol] 4.2 G/dL Normal 3.4-4.8 [facility] ([place]) Comment on above: Performed By: #### L IPID, CMP, GFR #### [address] [address] Albumin/Globulin [Mass ratio] 1.3 {ratio} Normal 1.1-2.5 Count Includes [facility] ([place]) Comment on above: Performed By: #### L IPID, CMP, GFR #### [address] [address] ALP [Catalytic activity/Vol] 76 U/L Normal 40-135 Count Includes [facility] ([place] Comment on above: Performed By: #### L IPID, CMP, GFR #### [address] [address] ALT [Catalytic activity/Vol] 36 U/L High 10-35 Count Includes [facility] ([place]) Comment on above: Performed By: #### L IPID, CMP, GFR #### [address] [address] AST [Catalytic activity/Vol] 22 U/L Normal 10-40 Count Includes [facility] ([place] Comment on above: Performed By: #### L IPID, CMP, GFR #### [address] [address] Bili Total 0.6 mg/dL Normal 0.2-1.0 Count Includes [facility] ([place]) Comment on above: Result Comment: Use of this assay is not recommended for patients undergoing treatment with eltrombopag due to the potential for falsely elevated results. Performed By: #### L IPID, CMP, GFR #### [address] [address] Calcium [Mass/Vol] 8.9 mg/dL Normal 8.4-10.2 [facility] ([place]) Comment on above: Performed By: #### L IPID, CMP, GFR #### [address] [address] Chloride [Moles/Vol] 97 mmol/L Low 98-107 [facility] ([place]) Comment on above: Performed By: #### L IPID, CMP, GFR #### [address] [address] CO2 [Moles/Vol] 28 mmol/L Normal 23-31 Count Includes [facility] ([place]) Comment on above: Performed By: #### L IPID, CMP, GFR #### [address] [address] Creatinine [Mass/Vol] 1.05 mg/dL Normal 0.70-1.30 [facility] ([place]) Comment on above: Performed By: #### L IPID, CMP, GFR #### [address] [address] Electrolyte Balance 8.0 mEq/L Normal [facility] ([place]) Comment on above: Performed By: #### L IPID, CMP, GFR #### [address] [address] Globulin (S) [Mass/Vol] 3.3 G/dL Normal [facility] ([place]) Comment on above: Performed By: #### L IPID, CMP, GFR #### [address] [address] Glucose [Mass/Vol] 99 mg/dL Normal 80-115 [facility] ([place]) Comment on above: Performed By: #### L IPID, CMP, GFR #### [address] [address] Potassium [Moles/Vol] 5.1 mmol/L Normal 3.5-5.1 [facility] ([place]) Comment on above: Performed By: #### L IPID, CMP, GFR #### [address] [address] Protein [Mass/Vol] 7.5 G/dL Normal 6.4-8.2 [facility] ([place]) Comment on above: Performed By: #### L IPID, CMP, GFR #### [address] [address] Sodium [Moles/Vol] 133 mmol/L Low 136-145 [facility] ([place]) Comment on above: Performed By: #### L IPID, CMP, GFR #### [address] [address] Urea nitrogen [Mass/Vol] 13 mg/dL Normal 7-18 Count Includes [facility] ([place]) Comment on above: Performed By: #### L IPID, CMP, GFR #### [address] [address] Urea nitrogen/Creatinine [Mass ratio] 12 ratio Normal 7-27 Count Includes [facility] ([place]) Comment on above: Performed By: #### L IPID, CMP, GFR #### [address] [place], [place] [address] LIPIDon 12-30-2019 Cholesterol [Mass/Vol] 111 mg/dL Normal 0-200 [facility] ([place]) Comment on above: Result Comment: Chol esterol Reference Interval: Less than 200 Desirable 200-239 Borderline high risk 240 and above High risk Performed By: #### L IPID, CMP, GFR #### [address] [place], [place] [address] Cholesterol in HDL [Mass/Vol] 54 mg/dL Normal 40-60 Count Includes [facility] ([place]) Comment on above: Performed By: #### L IPID, CMP, GFR #### [address] [place], [place] [address] Cholesterol in LDL [Mass/Vol] 50 mg/dL Normal 0-130 Count Includes [facility] ([place]) Comment on above: Performed By: #### L IPID, CMP, GFR #### [address] [address] Triglyceride [Mass/Vol] 35 mg/dL Normal 0-150 [facility] ([place]) Comment on above: Result Comment: Trig lyceride Reference Interval: Less than 150 Normal 150-199 Borderline high risk 200-499 High risk 500 or higher Very high risk Performed By: #### L IPID, CMP, GFR #### [address] [address] Vital Signs Date Time Vital Sign Value Performing Clinician Facility 03-05-2025 12:16-0400 Heart rate 75 /min Dr. Austin Perez DO Work Phone: [facility] 03-05-2025 12:16-0400 Respiratory rate 18 /min Dr. Austin Perez DO Work Phone: [facility] 03-05-2025 11:30-0400 Body height 175.[address] Austin Perez DO Work Phone: [facility] 03-05-2025 11:30-0400 Body weight 120.[address] Austin Perez DO Work Phone: [phone] [place] [address] 03-05-2025 11:00-0400 Body temperature 98.2 [degF] Dr. Austin Perez DO Work Phone: [phone] [place] [address] 03-05-2025 11:00-0400 Diastolic blood pressure 84 mm[Hg] Dr. Austin Perez DO Work Phone: [phone] [place] [address] 03-05-2025 11:00-0400 SaO2% (BldA) [Mass fraction] 93 % Dr. Austin Perez DO Work Phone: [phone] [place] [address] 03-05-2025 11:00-0400 Systolic blood pressure 151 mm[Hg] Dr. Austin Perez DO Work Phone: 0(114)[phone] [place] [address] 03-04-2025 05:04-0400 Body mass index (BMI) [Ratio] 39.3 kg/m2 Dr. Austin Perez DO Work Phone: 4(249)700-879149 [place] [address] 03-03-2025 10:00-0400 Inhaled oxygen flow rate 2 L/min Dr. Austin Perez DO Work Phone: 8(862)690-093765 [place] [address] 03-02-2025 08:00-0400 Inhaled oxygen concentration 40 % Dr. Austin Perez DO Work Phone: 5(842)524-344465 [place] [address] 02-27-2025 01:15-0400 Body temperature 98.6 [degF] Dr. Austin Perez DO Work Phone: 2(041)993-261165 [place] [address] 02-27-2025 01:15-0400 Diastolic blood pressure 75 mm[Hg] Dr. Austin Perez DO Work Phone: 0(770)952-048049 [place] [address] 02-27-2025 01:15-0400 Heart rate 80 /min Dr. Austin Perez DO Work Phone: 8(518)017-246249 [place] [address] 02-27-2025 01:15-0400 Respiratory rate 28 /min Dr. Austin Perez DO Work Phone: 4(196)066-986149 [place] [address] 02-27-2025 01:15-0400 SaO2% (BldA) [Mass fraction] 94 % Dr. Austin Perez DO Work Phone: [facility] 02-27-2025 01:15-0400 Systolic blood pressure 134 mm[Hg] Dr. Austin Perez DO Work Phone: [facility] 02-27-2025 01:00-0400 Inhaled oxygen flow rate 2 L/min Dr. Austin Perez DO Work Phone: [facility] 02-26-2025 20:50-0400 Body height 175.[address] Austin Perez DO Work Phone: [facility] 02-26-2025 20:50-0400 Body mass index (BMI) [Ratio] 38.7 kg/m2 Dr. Austin Perez DO Work Phone: [facility] 02-26-2025 20:50-0400 Body weight [address] Austin Perez DO Work Phone: [facility] 01-08-2025 09:51-0400 Body mass index (BMI) [Ratio] 39.99 kg/m2 Veronica Butt APRN-DERRICK BUILDER Work Phone: [facility] 01-08-2025 09:51-0400 Body weight 119.3 kg Veronica Butt APRN-DERRICK BUILDER Work Phone: [facility] 01-08-2025 09:51-0400 Diastolic blood pressure 78 mm[Hg] Veronica Butt APRN-DERRICK BUILDER Work Phone: [facility] 01-08-2025 09:51-0400 Heart rate 73 /min Veronica Butt APRN-DERRICK BUILDER Work Phone: [facility] 01-08-2025 09:51-0400 SaO2% (BldA) [Mass fraction] 95 % Veronica Butt APRN-DERRICK BUILDER Work Phone: [facility] Comment on above: RA 01-08-2025 09:51-0400 Systolic blood pressure 128 mm[Hg] Veronica Butt APRN-DERRICK BUILDER Work Phone: [facility] 12-02-2024 13:20-0400 Body temperature 98.01 [degF] Davie Carroll MD Work Phone: [facility] 12-02-2024 13:20-0400 Diastolic blood pressure 78 mm[Hg] Davie Carroll MD Work Phone: [facility] 12-02-2024 13:20-0400 Heart rate 70 /min Davie Carroll MD Work Phone: [facility] 12-02-2024 13:20-0400 Respiratory rate 19 /min Davie Carroll MD Work Phone: [facility] 12-02-2024 13:20-0400 SaO2% (BldA) [Mass fraction] 99 % Davie Carroll MD Work Phone: [facility] 12-02-2024 13:20-0400 Systolic blood pressure 159 mm[Hg] Davie Carroll MD Work Phone: [facility] 11-17-2024 14:08-0400 Body height 174 cm Anna Lemusi PA-C Work Phone: [facility] 11-17-2024 14:08-0400 Body mass index (BMI) [Ratio] 40.38 kg/m2 Anna Lemusi PA-C Work Phone: [facility] 11-17-2024 14:08-0400 Body temperature 98.49 [degF] Anna Curryuzzi PA-C Work Phone: [employer] 11-17-2024 14:08-0400 Body weight 122.24 kg Anna Petruzzi PA-C Work Phone: [facility] 11-17-2024 14:08-0400 Diastolic blood pressure 67 mm[Hg] Anna Lemusi PA-C Work Phone: [facility] 11-17-2024 14:08-0400 Heart rate 74 /min Anna Lemusi PA-C Work Phone: [facility] 11-17-2024 14:08-0400 Respiratory rate 18 /min Anna Sanders PA-C Work Phone: [facility] 11-17-2024 14:08-0400 SaO2% (BldA) [Mass fraction] 96 % Anna Sanders PA-C Work Phone: [facility] 11-17-2024 14:08-0400 Systolic blood pressure 137 mm[Hg] Anna Sanders PA-C Work Phone: [facility] 10-26-2024 12:02-0400 Diastolic blood pressure 94 mm[Hg] Aura Wagner MD Work Phone: [facility] 10-26-2024 12:02-0400 Heart rate 83 /min Aura Wagner MD Work Phone: [facility] 10-26-2024 12:02-0400 Respiratory rate 31 /min Aura Wagner MD Work Phone: [facility] 10-26-2024 12:02-0400 SaO2% (BldA) [Mass fraction] 90 % Aura Wagner MD Work Phone: [facility] 10-26-2024 12:02-0400 Systolic blood pressure 158 mm[Hg] Aura Wagner MD Work Phone: [facility] 10-26-2024 12:00-0400 Body temperature 98.2 [degF] Aura Wagner MD Work Phone: [facility] 10-25-2024 00:00-0400 Body mass index (BMI) [Ratio] 39.56 kg/m2 Aura Wagner MD Work Phone: [facility] 10-25-2024 00:00-0400 Body weight 121.5 kg Aura Wagner MD Work Phone: [facility] 10-24-2024 20:56-0400 SaO2% (BldA) [Mass fraction] 98 % Auar Wagner MD Work Phone: [facility] 10-24-2024 19:42-0400 Body height 175.3 cm Aura Wagner MD Work Phone: [facility] 08-10-2024 13:00-0500 Body height 175.3 cm Lois Hoang MD Work Phone: [facility] 08-10-2024 13:00-0500 Body mass index (BMI) [Ratio] 38.03 kg/m2 Lois Hoang MD Work Phone: [facility] 08-10-2024 13:00-0500 Body weight 116.8 kg Lois Hoang MD Work Phone: [facility] 08-10-2024 13:00-0500 Diastolic blood pressure 90 mm[Hg] Lois Hoang MD Work Phone: [facility] 08-10-2024 13:00-0500 Heart rate 63 /min Lois Hoang MD Work Phone: [facility] 08-10-2024 13:00-0500 SaO2% (BldA) [Mass fraction] 97 % Lois Hoang MD Work Phone: [facility] 08-10-2024 13:00-0500 Systolic blood pressure 170 mm[Hg] Lois Hoang MD Work Phone: [facility] 07-14-2024 13:00-0500 Body height 175.[address] [facility] 07-14-2024 13:00-0500 Body mass index (BMI) [Ratio] 41.05 kg/m2 P[facility] 1 [facility] 07-14-2024 13:00-0500 Body temperature 97.5 [degF] Pst 1 [facility] 07-14-2024 13:00-0500 Body weight 126.[address] P[address] 1 [facility] 07-14-2024 13:00-0500 Diastolic blood pressure 80 mm[Hg] [facility]st 1 [facility] Comment on above: manual 07-14-2024 13:00-0500 Heart rate 68 /min Pst 1 [facility] 07-14-2024 13:00-0500 Respiratory rate 18 /min Pst 1 [facility] 07-14-2024 13:00-0500 SaO2% (BldA) [Mass fraction] 97 % Pst 1 [facility] 07-14-2024 13:00-0500 Systolic blood pressure 150 mm[Hg] Pst 1 [facility] Comment on above: manual 06-05-2024 09:08-0500 Body mass index (BMI) [Ratio] 44.71 kg/m2 Lois Hoang MD Work Phone: [facility] 06-05-2024 09:08-0500 Body weight 129.5 kg Lois Hoang MD Work Phone: [facility] 06-05-2024 09:08-0500 Diastolic blood pressure 84 mm[Hg] Lois Hoang MD Work Phone: [facility] 06-05-2024 09:08-0500 Heart rate 72 /min Lois Hoang MD Work Phone: [facility] 06-05-2024 09:08-0500 Respiratory rate 20 /min Lois Hoang MD Work Phone: [facility] 06-05-2024 09:08-0500 SaO2% (BldA) [Mass fraction] 96 % Lois Hoang MD Work Phone: [facility] 06-05-2024 09:08-0500 Systolic blood pressure 161 mm[Hg] Lois Hoang MD Work Phone: [facility] 05-10-2024 08:16-0400 Diastolic blood pressure 67 mm[Hg] Everton Sanchez MD Work Phone: [facility] 05-10-2024 08:16-0400 Heart rate 69 /min Everton Sanchez MD Work Phone: [facility] 05-10-2024 08:16-0400 Respiratory rate 18 /min Everton Sanchez MD Work Phone: [facility] 05-10-2024 08:16-0400 SaO2% (BldA) [Mass fraction] 98 % Everton Sanchez MD Work Phone: [facility] 05-10-2024 08:16-0400 Systolic blood pressure 156 mm[Hg] Everton Sanchez MD Work Phone: [facility] 04-26-2024 08:23-0400 Diastolic blood pressure 98 mm[Hg] Everton Sanchez MD Work Phone: [facility] 04-26-2024 08:23-0400 Heart rate 68 /min Everton Sanchez MD Work Phone: [facility] 04-26-2024 08:23-0400 Respiratory rate 18 /min Evertno Sanchez MD Work Phone: [facility] 04-26-2024 08:23-0400 SaO2% (BldA) [Mass fraction] 98 % Everton Sanchez MD Work Phone: [facility] 04-26-2024 08:23-0400 Systolic blood pressure 178 mm[Hg] Everton Sanchez MD Work Phone: [facility] 04-06-2024 09:11-0400 Body height 170.2 cm Lois Hoang MD Work Phone: [facility] 04-06-2024 09:11-0400 Body mass index (BMI) [Ratio] 44.37 kg/m2 Lois Hoang MD Work Phone: [facility] 04-06-2024 09:11-0400 Body weight 128.5 kg Lois Hoang MD Work Phone: [facility] 04-06-2024 09:11-0400 Diastolic blood pressure 89 mm[Hg] Lois Hoang MD Work Phone: [facility] 04-06-2024 09:11-0400 Heart rate 74 /min Lois Hoang MD Work Phone: [facility] 04-06-2024 09:11-0400 Respiratory rate 18 /min Lois Hoang MD Work Phone: [facility] 04-06-2024 09:11-0400 SaO2% (BldA) [Mass fraction] 98 % Lois Hoang MD Work Phone: [facility] 04-06-2024 09:11-0400 Systolic blood pressure 154 mm[Hg] Lois Hoang MD Work Phone: [facility] 03-16-2024 11:16-0400 Diastolic blood pressure 77 mm[Hg] Everton Sanchez MD Work Phone: [facility] 03-16-2024 11:16-0400 Heart rate 71 /min Everton Sanchez MD Work Phone: [facility] 03-16-2024 11:16-0400 Respiratory rate 18 /min Everton Sanchez MD Work Phone: [facility] 03-16-2024 11:16-0400 SaO2% (BldA) [Mass fraction] 97 % Everton Sanchez MD Work Phone: [facility] 03-16-2024 11:16-0400 Systolic blood pressure 178 mm[Hg] Everton Sanchez MD Work Phone: [facility] 12-21-2023 19:11-0400 Body height 170.2 cm Yashira Gonsales APRN.DERRICK BUILDER Work Phone: [facility] 12-21-2023 19:11-0400 Body mass index (BMI) [Ratio] 43.54 kg/m2 Yashira Gonsales APRN.DERRICK BUILDER Work Phone: [facility] 12-21-2023 19:11-0400 Body weight 126.1 kg Yashira Gonsales APRN.DERRICK BUILDER Work Phone: [facility] 12-16-2023 10:56-0400 Diastolic blood pressure 89 mm[Hg] Dhiraj Herr MD Work Phone: [facility] 12-16-2023 10:56-0400 Heart rate 66 /min Dhiraj Herr MD Work Phone: [facility] 12-16-2023 10:56-0400 Respiratory rate 16 /min Dhiraj Herr MD Work Phone: [facility] 12-16-2023 10:56-0400 SaO2% (BldA) [Mass fraction] 97 % Dhiraj Herr MD Work Phone: [facility] 12-16-2023 10:56-0400 Systolic blood pressure 154 mm[Hg] Dhiraj Herr MD Work Phone: [facility] 11-11-2023 09:39-0400 Body height 170.2 cm Shleton Flores MD Work Phone: [facility] 11-11-2023 09:39-0400 Body mass index (BMI) [Ratio] 43.54 kg/m2 Shelton Flores MD Work Phone: [facility] 11-11-2023 09:39-0400 Body temperature 98.01 [degF] Shelton Flores MD Work Phone: [facility] 11-11-2023 09:39-0400 Body weight 126.1 kg Shelton Flores MD Work Phone: [facility] 11-11-2023 09:39-0400 Diastolic blood pressure 91 mm[Hg] Shelton Flores MD Work Phone: [facility] 11-11-2023 09:39-0400 Heart rate 75 /min Shelton Flores MD Work Phone: [facility] 11-11-2023 09:39-0400 Respiratory rate 20 /min Shelton Flores MD Work Phone: [facility] 11-11-2023 09:39-0400 SaO2% (BldA) [Mass fraction] 95 % Shelton Flores MD Work Phone: [facility] 11-11-2023 09:39-0400 Systolic blood pressure 163 mm[Hg] Shelton Flores MD Work Phone: [facility] 10-28-2023 10:03-0400 Diastolic blood pressure 94 mm[Hg] Dhiraj Herr MD Work Phone: [facility] 10-28-2023 10:03-0400 Heart rate 70 /min Dhiraj Herr MD Work Phone: [facility] 10-28-2023 10:03-0400 Respiratory rate 16 /min Dhiraj Herr MD Work Phone: [facility] 10-28-2023 10:03-0400 SaO2% (BldA) [Mass fraction] 96 % Dhiraj Herr MD Work Phone: [facility] 10-28-2023 10:03-0400 Systolic blood pressure 151 mm[Hg] Dhiraj Herr MD Work Phone: [facility] 09-23-2023 08:06-0500 Heart rate 74 /min Bertha Prebish [employer]PERVISING [employer]DER Work Phone: [facility] 09-23-2023 08:06-0500 Respiratory rate 20 /min Bertha Prebish [employer]ING [employer] BUILDER Work Phone: [facility] 09-23-2023 08:06-0500 SaO2% (BldA) [Mass fraction] 99 % Bertha Prebish [employer]ING [employer]ERR[employer] BUILDER Work Phone: [facility] 03-22-2022 12:55-0400 Heart rate 84 /min [facility] Work Phone: 03-22-2022 12:55-0400 Respiratory rate 17 /min [facility] Work Phone: 03-22-2022 12:55-0400 SaO2% (BldA) [Mass fraction] 99 % [facility] Work Phone: 03-22-2022 11:13-0400 Body height 175.26 cm [facility] Work Phone: 03-22-2022 11:13-0400 Body mass index (BMI) [Ratio] 36 kg/m2 [facility] Work Phone: 03-22-2022 11: Body temperature 97.4 [degF] [facility] Work Phone: 03-22-2022 11: Body weight 110.7 kg [facility] Work Phone: 03-22-2022 11:040 Diastolic blood pressure 77 mm[Hg] [facility] Work Phone: 03-22-2022 11:040 Systolic blood pressure 160 mm[Hg] [facility] Work Phone: Encounters Encounter Date Encounter Type Care Provider Facility Start: 03-08-2025 End: 03-09-2025 Telephone encounter Rosa Garcia RN [facility] Comment on above: Update Provider Request Prescription Clarifi cation Start: 03-06-2025 End: 03-06-2025 Telephone encounter Mayank Dalton RN [facility] Comment on above: Care Coordination Start: 03-04-2025 Non-patient / Non-visit Dr. Carlie Parker [facility] Work Phone: Start: 03-03-2025 Non-patient / Non-visit Dr. Carlie Parker [facility] Work Phone: Start: 03-02-2025 Non-patient / Non-visit Dr. Sahu [facility] Work Phone: Start: 03-01-2025 Non-patient / Non-visit Dr. Sahu [facility] Work Phone: Start: 02-28-2025 ambulatory Lavinia Kee Facility:[facility] Start: 02-28-2025 Non-patient / Non-visit [facility] Lavinia quinones MD [facility] Start: 02-28-2025 Non-patient / Non-visit Dr. Benitez Maya [facility] Work Phone: Start: 02-27-2025 ambulatory Mechelle Baptiste ty:[facility] Start: 02-27-2025 End: 03-05-2025 Evaluation and management of inpatient Dr. Mechelle Maya DO -Intensive Care Unit Work Phone: Start: 02-01-2025 End: 02-01-2025 Telephone encounter Veronica Johnny ESTRADA-[employer]ERRICK BUILDER [facility] Comment on above: PFT Appt Start: 01-08-2025 End: 01-08-2025 Office outpatient visit 40 minutes Veronica Butt [employer]PER[employer]ING [employer]DER Work Phone: [facility] Comment on above: Reactive airway dise ase without complication, unspecified asthma severity, unspecified whether persistent (HCC) (Primary Dx); Pulmonary nodule seen on imaging study; Environmental and seasonal allergies; Tobacco use disorder; Body mass index (BMI) 39.0-39.9, adult Start: 01-08-2025 End: 01-08-2025 ambulatory PROVIDER NON-EPICCARE Facility:[facility] Start: 12-25-2024 End: 12-25-2024 Letter encounter Malena Alejandro RN [facility] Start: 12-25-2024 End: 12-25-2024 Telephone encounter Malena Alejandro RN [facility] Comment on above: APPOINTMENT SCHEDULI NG Start: 12-07-2024 End: 12-07-2024 Evaluation and management of inpatient IP NEUROLOGY CONSULT Facility:[facility] Start: 12-02-2024 End: 12-02-2024 Emergency department patient visit Davie Carroll MD Work Phone: [facility] Comment on above: Headache (JIN x24 hrs w/ vision changes ) Start: 12-02-2024 ambulatory PROVIDER NON-EPICCARE Facility:[facility] Start: 12-02-2024 Emergency department patient visit UNKNOWN PROVIDER Facility:[facility] Start: 11-24-2024 End: 11-24-2024 ambulatory Brooke Wu RN [facility] Care Management/Patient Access Comment on above: COPD FU CALL-CONTACT REACHED Start: 11-17-2024 End: 11-18-2024 Office outpatient new 45 minutes Anna Sanders PA-C Work Phone: [facility] Comment on above: COPD exacerbation (H CC) (Primary Dx); 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 artery (HCC); Gastroesophageal reflux disease with esophagitis without hemorrhage Start: 11-17-2024 End: 11-18-2024 ambulatory Brooke Wu RN [facility] Care Management/Patient Access Comment on above: COPD FU CALL-UNABLE TO LEAVE MESSAGE Start: 11-01-2024 End: 11-01-2024 Telephone encounter Karthik Fried RT [facility] Comment on above: Pulm Rehab referral Start: 10-27-2024 End: 10-27-2024 ambulatory Brooke Wu RN [facility] Care Management/Patient Access Start: 10-27-2024 End: 10-27-2024 Follow-up encounter Brooke Wu RN [facility] Care Management/Patient Access Comment on above: Hospital follow-up; Transitional Care Management (COPD DC 10/26/24) Start: 10-26-2024 End: 10-26-2024 Orders Only Aura Wagner MD Work Phone: [facility] Start: 10-25-2024 End: 12-25-2024 Follow-up encounter Pilar Snell [facility] Start: 10-24-2024 End: 10-26-2024 Evaluation and management of inpatient Aura Wagner MD Work Phone: [address] Comment on above: COPD exacerbation (H CC) (Primary Dx); 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 artery (HCC); Exacerbation of intermittent asthma, unspecified asthma severity (HCC); Difficulty walking; Decreased mobility and endurance Start: 10-24-2024 End: 10-24-2024 Emergency department patient visit PILAR LANZA Facility:[facility] Start: 10-24-2024 Evaluation and management of inpatient BRIAN ANGLIN Facility:[facility] Start: 09-12-2024 End: 09-12-2024 ambulatory Varun Sahni PT Work Phone: [facility] Comment on above: S/P lumbar laminecto my (Primary Dx) Start: 09-05-2024 End: 09-05-2024 Telephone encounter Lois Hoang MD Work Phone: [facility] Start: 08-28-2024 End: 08-28-2024 Telephone encounter Lois Hoang MD Work Phone: [facility] Comment on above: Internal Referrals/r esources Start: 08-25-2024 End: 08-25-2024 Orders Only Lois Hoang MD Work Phone: [facility] Comment on above: S/P lumbar laminecto my (Primary Dx) Start: 08-10-2024 End: 08-10-2024 Postop follow up visit related to original px Lois Hoang MD Work Phone: [facility] Comment on above: S/P lumbar laminecto my (Primary Dx) Start: 08-10-2024 End: 08-10-2024 ambulatory [facility] Facility[facility] Start: 08-02-2024 End: 08-02-2024 Refill Lois Hoang MD Work Phone: [facility] Comment on above: Refill Request Start: 07-28-2024 End: 07-29-2024 Evaluation and management of inpatient [facility] Facility:[facility] Start: 07-27-2024 End: 07-27-2024 Telephone encounter Lois Hoang MD Work Phone: [facility] Comment on above: Preparations For Sukhjinder jen Start: 07-20-2024 End: 07-21-2024 Telephone encounter Shelton Flores MD Work Phone: Pulmonary Medicine Comment on above: Medical Clearance Start: 07-17-2024 End: 07-17-2024 Telephone encounter Polly Mcfarlane APRN.DERRICK BUILDER Work Phone: [place] [facility]ULT Start: 07-14-2024 End: 07-14-2024 Preprocedural examination done Pst 1 [facility] Work Phone: Start: 07-14-2024 End: 07-14-2024 Orders Only Lois Hoang MD Work Phone: [facility] Comment on above: Spinal stenosis of [...] examination done Lois Hoang MD Work Phone: [facility] Start: 07-10-2024 Encounter for other preprocedural examination [facility] Start: 06-21-2024 End: 06-21-2024 Telephone encounter Lois Hoang MD Work Phone: [facility] Comment on above: Preparations For Sukhjinder jen Start: 06-19-2024 End: 06-19-2024 Orders Only Lois Hoang MD Work Phone: [facility] Comment on above: Spinal stenosis of l umbar region with neurogenic claudication (Primary Dx) Start: 06-08-2024 End: 06-08-2024 Telephone encounter Shelton Flores MD Work Phone: [facility] Medicine Comment on above: FYI-No Action Needed Start: 06-08-2024 End: 06-08-2024 ambulatory [facility] Facility:[facility] Start: 06-08-2024 End: 06-08-2024 Subsequent hospital visit by physician [facility] (I-Stat) Work Phone: Cat Scan Start: 06-05-2024 End: 06-05-2024 Office outpatient visit 25 minutes Lois Hoang MD Work Phone: [facility] Comment on above: Spinal stenosis of l umbar region with neurogenic claudication (Primary Dx) Start: 06-05-2024 End: 06-05-2024 ambulatory [facility] Facility:[facility] Start: 06-05-2024 End: 06-05-2024 Subsequent hospital visit by physician [facility] [place] [facility] [employer] SPECIALIST Comment on above: Low back pain, unspe cified back pain laterality, unspecified chronicity, unspecified whether sciatica present [M54.50] Start: 05-31-2024 End: 05-31-2024 Telephone encounter Shelton Flores MD Work Phone: Pulmonary Medicine Comment on above: FYI-No Action Needed Start: 05-11-2024 End: 05-11-2024 ambulatory [facility] Facility:[facility] Start: 05-11-2024 End: 05-11-2024 Patient encounter procedure Bertha Vincent [employer]PERVISING [employer]ER.[employer] BUILDER Work Phone: [facility] Comment on above: APPOINTMENT CANCELLE D (Primary Dx) Start: 05-11-2024 End: 05-11-2024 Telemedicine consultation with patient Bertha Prebish [employer]PERVISING [employer]ICK BUILDER Work Phone: [facility] Start: 05-10-2024 End: 05-10-2024 Patient encounter procedure Everton Sanchez MD Work Phone: [facility] Start: 05-10-2024 End: 05-10-2024 ambulatory Everton Sanchez MD Work Phone: [facility] Comment on above: Injections (MBB); Ba ck Pain (LOWER BILATERAL) Start: 04-27-2024 End: 04-27-2024 Telemedicine consultation with patient Bertha Prebish [employer]PERVISING [employer]ERRICK BUILDER Work Phone: [facility] Start: 04-27-2024 End: 04-27-2024 ambulatory Bertha Prebish [employer]PERVISING [employer] BUILDER Work Phone: [facility] Comment on above: Lumbar spondylosis ( Primary Dx); Spinal stenosis, lumbar region, without neurogenic claudication Start: 04-27-2024 End: 04-28-2024 Telephone encounter Guanaco Razo MD, PhD Work Phone: [facility] Comment on above: Erroneous encounter- disregard Start: 04-26-2024 End: 04-26-2024 Patient encounter procedure Everton Sanchez MD Work Phone: [facility] Start: 04-26-2024 End: 04-26-2024 ambulatory Everton Sanchez MD Work Phone: [facility] Comment on above: Procedure (MBB) Start: 04-06-2024 End: 04-06-2024 Office outpatient new 45 minutes Lois Hoang MD Work Phone: [facility] Comment on above: Low back pain, unspe cified back pain laterality, unspecified chronicity, unspecified whether sciatica present (Primary Dx) Start: 04-06-2024 End: 04-06-2024 ambulatory [facility] Facility:[facility] Start: 04-05-2024 End: 04-05-2024 E-mail encounter from caregiver Lois Hoang MD Work Phone: [facility] Start: 04-05-2024 End: 04-05-2024 Patient encounter procedure Lois Hoang MD Work Phone: [facility] Comment on above: xrays for upcoming a ppointment Start: 03-31-2024 End: 03-31-2024 Telephone encounter Dhiraj Herr MD Work Phone: [facility] Comment on above: injection questions Start: 03-30-2024 End: 03-30-2024 Telephone encounter Dhiraj Herr MD Work Phone: [facility] Comment on above: Appointment Start: 03-30-2024 End: 03-30-2024 Telemedicine consultation with patient Bertha Vincent ESTRADA.[employer]ERRICK BUILDER Work Phone: [facility] Start: 03-30-2024 End: 03-30-2024 ambulatory Bertha Kaur APRN.DERRICK BUILDER Work Phone: [facility] Comment on above: Lumbar spondylosis ( Primary Dx); Lumbar radiculopathy; Spinal stenosis, lumbar region, without neurogenic claudication Start: 03-17-2024 End: 03-17-2024 Telephone encounter Everton Sanchez MD Work Phone: [facility] Comment on above: Procedure Follow Up Start: 03-16-2024 End: 03-16-2024 Telephone encounter Bertha Kaur APRN.DERRICK BUILDER Work Phone: [facility] Comment on above: Orders Start: 03-16-2024 End: 03-16-2024 Patient encounter procedure Everton Sanchez MD Work Phone: Spine and Pain Call Start: 03-16-2024 End: 03-16-2024 ambulatory Everton Sanchez MD Work Phone: Spine and Pain Call Comment on above: Procedure Start: 03-15-2024 End: 03-15-2024 Telephone encounter Everton Sanchez MD Work Phone: Spine and Pain Call Comment on above: Patient Question Start: 03-13-2024 End: 03-13-2024 Telephone encounter Yashira Gonsales APRN.DERRICK BUILDER Work Phone: Spine and Pain Call Comment on above: Insurance Denial Start: 02-25-2024 Telephone encounter Bertha rees APRN.DERRICK BUILDER Work Phone: Spine and Pain Call Comment on above: Appointment anticoagulation marta er Injections (question s) Start: 02-24-2024 End: 02-24-2024 Telemedicine consultation with patient Berthavikki Childssylvester ESTRADA.DERRICK BUILDER Work Phone: Spine and Pain Call Start: 02-24-2024 End: 02-24-2024 ambulatory Betrha Kaur APRN.DERRICK BUILDER Work Phone: Spine and Pain Call Comment on above: Lumbar spondylosis ( Primary Dx); Spinal 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; Chronic bilateral low back pain with sciatica, sciatica laterality unspecified Start: 01-24-2024 ambulatory Bertha Kaur SEAN.DERRICK BUILDER Work Phone: Spine and Pain Call Comment on above: Denial of Medical Se rvice Start: 01-17-2024 Telephone encounter Shelton Flores MD Work Phone: Pulmonology [facility] Comment on above: Illness (Marie RN covering urgent pulm sypmtom calls) Start: 01-16-2024 End: 01-16-2024 Letter encounter [facility] Start: 01-11-2024 Refill Shelton Flores MD Work Phone: Pulmonary Medicine Comment on above: Refill Request Start: 01-06-2024 Refill Shelton Flores MD Work Phone: Pulmonary Medicine Comment on above: Refill Request Start: 01-03-2024 Telephone encounter Alen raza MD Work Phone: Pulmonary Medicine Comment on above: Results Start: 12-29-2023 [facility] Start: 12-29-2023 End: 12-29-2023 Subsequent hospital visit by physician [facility] Work Phone: RADIO [facility] SCAN [facility] Comment on above: Lung nodules [R91.8] Start: 12-22-2023 End: 12-22-2023 Telemedicine consultation with patient Yashira Gonsales SUPERVISING BROKER.DERRICK BUILDER Work Phone: Spine and Pain Call Start: 12-22-2023 End: 12-22-2023 ambulatory Yashira Gonsales SEAN.DERRICK BUILDER Work Phone: Spine and Pain Call Comment on above: Lumbar spondylosis ( Primary Dx) Start: 12-17-2023 Telephone encounter Dhiraj Herr MD Work Phone: Spine and Pain Call Comment on above: Procedure Follow Up (MBB) Start: 12-16-2023 End: 12-16-2023 Patient encounter procedure Dhiraj Herr MD Work Phone: Spine and Pain Call Start: 12-16-2023 End: 12-16-2023 ambulatory Dhiraj Herr MD Work Phone: Spine and Pain Call Comment on above: Procedure (Mbb ); Ba ck Pain (Lower - bilateral - right is worse) Start: 12-14-2023 Telephone encounter Bertha rees SUPERVISING BROKER.DERRICK BUILDER Work Phone: Spine and Pain Call Comment on above: Insurance Denial Start: 12-10-2023 Orders Only Shelton Flores MD Work Phone: Pulmonary Medicine Comment on above: Severe persistent as thma, unspecified whether complicated (Primary Dx) Start: 12-01-2023 End: 12-02-2023 ambulatory [facility] Facility:[facility] Start: 11-29-2023 ambulatory Bertha Kaur SUPERVISING BROKER.DERRICK BUILDER Work Phone: Spine and Pain Call Start: 11-29-2023 Patient encounter procedure Bertha Kaur SUPERVISING BROKER.DERRICK BUILDER Work Phone: Spine and Pain Call Comment on above: Appointment Start: 11-25-2023 End: 11-25-2023 Telemedicine consultation with patient Bertha Presylvester SUPERVISING BROKER.DERRICK BUILDER Work Phone: Spine and Pain Call Start: 11-25-2023 End: 11-25-2023 ambulatory Bertha Vincent SUPERVISING BROKER.DERRICK BUILDER Work Phone: Spine and Pain Call Comment on above: Lumbar spondylosis ( Primary Dx); Spinal 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 Start: 11-22-2023 ambulatory [facility] Neurology Comment on above: Home Sleep Study Start: 11-22-2023 E-mail encounter raya saunders caregiver [facility] Provider Neurology Start: 11-21-2023 Telephone encounter Bertha rees APRN.DERRICK BUILDER Work Phone: Spine and Pain Call Start: 11-19-2023 End: 11-19-2023 Subsequent hospital visit by physician Elizabeth [facility] Andres (I-Stat/1.5t) Radiology Comment on above: [...] Start: 10-29-2023 End: 10-29-2023 ambulatory Bertha Kaur DERRICK BUILDER [facility] Phone[facility] Comment on above: Lumbar spondylosis ( Primary Dx); Chronic bilateral low back pain with sciatica, sciatica laterality unspecified; Spinal 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 Start: 10-29-2023 End: 10-29-2023 Telemedicine consultation with patient Bertha Catherinenegrita SUPERVISING BROKER.DERRICK BUILDER Work Phone: [facility] [address] Start: 10-28-2023 End: 10-28-2023 ambulatory Dhiraj Herr MD Work Phone: Spine and Pain Call Comment on above: Procedure (MBNB L4/L 5 S1) Start: 10-28-2023 End: 10-28-2023 Patient encounter procedure Dhiraj Herr MD Work Phone: [place] [facility] Start: 10-19-2023 Refill Shelton Flores MD Work Phone: Pulmonary Medicine Comment on above: Refill Request Start: 10-11-2023 Refill Shelton Flores MD Work Phone: Pulmonary Medicine Comment on above: Refill Request Start: 09-28-2023 ambulatory Bertha Childssylvester SUPERVISING BROKER.DERRICK BUILDER Work Phone: [facility] Comment on above: Prednisone for pain relief Start: 09-23-2023 Telephone encounter Bertha Catherine negrita SUPERVISING BROKER.DERRICK BUILDER Work Phone: [facility] Comment on above: Injection Questions Start: 09-23-2023 End: 09-23-2023 Office outpatient new 45 minutes Bertha Childssylvester SUPERVISING BROKER.DERRICK BUILDER Work Phone: [facility] Comment on above: Lumbar spondylosis ( Primary Dx); Chronic bilateral low back pain with sciatica, sciatica laterality unspecified Start: 09-02-2023 ambulatory UNKNOWN PROVIDER Facili ty:[facility] Start: 09-02-2023 End: 09-02-2023 Subsequent hospital visit by physician [facility] Radiology Comment on above: Wheezing [R06.2] Start: 09-02-2023 End: 09-02-2023 ambulatory Pulm Work Phone: Pulmonary Medicine Comment on above: Spirometry Start: 09-02-2023 End: 09-02-2023 Patient encounter procedure Pulm Fct Lab [facility] Work Phone: [facility] Start: 08-26-2023 Telephone encounter Shelton Flores MD Work Phone: Pulmonary Medicine Comment on above: Results Start: 08-24-2023 Telephone encounter Shelton Flores MD Work Phone: Pulmonary Medicine Comment on above: FYI-No Action Needed Results Start: 08-20-2023 Telephone encounter Shelton Flores MD Work Phone: Pulmonary Medicine Comment on above: FYI-No Action Needed Start: 08-20-2023 End: 08-20-2023 ambulatory [facility] [place] Work Phone: Pulmonary Medicine Comment on above: Spirometry Start: 08-20-2023 End: 08-20-2023 Patient encounter procedure Pulm Lab [place] Work Phone: [facility] Start: 08-04-2023 End: 08-04-2023 ambulatory [facility] Work Phone: Start: 08-04-2023 End: 08-04-2023 Patient encounter procedure [facility]-Radiology, [facility] Work Phone: Start: 06-11-2023 Registered [facility]-Physical Therapy Work Phone: Start: 02-20-2023 End: 02-20-2023 ambulatory [facility] Work Phone: Start: 02-20-2023 End: 02-20-2023 [facility]: Start: 10-26-2022 Letter encounter Edgardo luna Start: 03-22-2022 End: 03-22-2022 Emergency department patient visit [facility]-Emergency Department Start: 02-07-2022 End: 02-07-2022 Patient encounter procedure [facility]Labor[facility] Start: 01-31-2022 End: 01-31-2022 [facility] Start: 10-20-2021 Letter encounter Edgardo cabezas Procedures [...] Phone: Start: 03-01-2025 Plain chest X-ray Dr. Malou Perez DO Work Phone: Start: 02-28-2025 CT angiography of ch est with contrast Dr. Austin Peerz DO Work Phone: Start: 02-28-2025 D-dimer assay, [...] Phone: Start: 02-28-2025 Plain chest X-ray Dr. Malou Perez DO Work Phone: Start: 02-27-2025 MRI [...] in 7 to 14 days isrecommended.Performed at: [address] [id number] Director: Tang Loyola PhD, Phone: [phone] Start: 02-27-2025 Osmolality measurement, serum Dr. Austin [...] cervical spine wi thout contrast Dr. Austin Perze DO Work Phone: Start: 02-26-2025 CT of [...] 01-08-2025 Assay of gammaglobulin ige Veronica Butt SUPERVISING BROKER-DERRICK BUILDER Work Phone: Start: 01-08-2025 Inhaled allergen mix RAST Veronica Johnny SUPERVISING BROKER-DERRICK BUILDER Work Phone: Start: 12-02-2024 Ct angiography head [...] Speci men Type: BLOOD SPECIMEN Ordering Facility: [facility] Address: [address] [place] [address] Performed By: #### T SCR30 #### [facility] CLIA [id number] 1 [place] [address] [place] Start: 06-08-2024 Ct thorax w/o contra st material [facility] Provider Start: 12-29-2023 Echo tthrc r-t 2d w/ wom-mode compl spec&colr d Shelton Flores MD Work Phone: Start: 11-19-2023 Mri spinal canal lum bar w/o contrast material Bertha Kaur SUPERVISING BROKER.DERRICK BUILDER Work Phone: Start: 09-02-2023 Nitric oxide gas determination Shelton Flores MD Work Phone: Start: 09-02-2023 Co diffusing capacity Tim Flores MD Work Phone: Start: 08-20-2023 Brncdilat rspse spmt ry pre&post-brncdilat admn Shelton Flores MD Work Phone: Start: 08-04-2023 Plain chest X-ray Start: 03-22-2022 Plain x-ray of hand Start: 03-22-2022 Plain x-ray of wrist Start: 04-24-2019 Lipid 1996 panel - S tara or Plasma [facility] [place] Work Phone: Plan of Treatment Date Care Activity Detail Author Start: 06-14-2033 Tetanus vaccination Tetanus (Td or Tdap) Booster [facility] Start: 06-14-2033 Urine microalbumin profile DTaP,Tdap,Td Vaccine (2 - Td or Tdap) [facility] Start: 02-21-2028 Lipid panel Cholesterol [facility] Start: 10-26-2027 Diabetes Screening Diabetes Screening [facility] Start: 07-29-2027 Diabetes Screening Diabetes Screening [facility] Start: 07-14-2027 Diabetes Screening Diabetes Screening [facility] Start: 12-01-2026 Diabetes Screening Diabetes Screening [facility] Start: 10-24-2025 Hemoglobin A1c measurement Hemoglobin A1C [facility] Start: 07-23-2025 End: 07-23-2025 Patient encounter procedure 07/23/2025 8:20 AM EST Office Visit [facility] Pulmonary [address] [place] [address] Veronica Butt APRN-CNP [address] [place] [address] [facility] Pulmonary Start: 05-21-2025 End: 05-21-2025 Patient encounter procedure 05/21/2025 8:00 AM EST Appointment [facility] Radiology CT [address] [place] [address] [facility] Radiology CT Start: 05-19-2025 End: 01-08-2026 CT Chest WO contrast CT CHEST W/O CONTRAST Imaging Routine Pulmonary nodule seen on imaging study Expected: 05/19/2025 (Approximate), Expires: 01/08/2026 [facility] Work Phone: Comment on above: Expected: 05/19/2025 (Approximate), Expi res: 01/08/2026 Start: 04-18-2025 Influenza vaccination Influenza Vaccine (#1) [facility] Start: 03-19-2025 Influenza vaccination Influenza Vaccine (Season Ended) [facility] Start: 03-05-2025 Referral to service [facility] Start: 03-05-2025 Patient discharge [facility] Start: 03-03-2025 Care planning and problem solving actions [facility] Start: 03-03-2025 [facility] Start: 03-01-2025 Consultation [facility] Start: 02-28-2025 [facility] Start: 02-28-2025 Care planning and problem solving actions [facility] Start: 02-28-2025 Speech therapy assessment [facility] Start: 02-28-2025 Care planning and problem solving actions [facility] Start: 02-27-2025 Referral to occupational therapist [facility] Start: 02-27-2025 Referral to service [facility] Start: 02-27-2025 Implementation of planned interventions [facility] Start: 02-27-2025 Oxygen therapy [facility] Start: 02-27-2025 Aspiration precautions [facility] Start: 02-27-2025 Application of intermittent pneumatic compression device [facility] Start: 02-27-2025 Following clinical pathway protocol [facility] Start: 02-27-2025 Cardiac monitoring [facility] Start: 02-27-2025 Catheterization of vein [facility] Start: 02-27-2025 Notification of physician [facility] Start: 02-27-2025 Vital signs measurements [facility] Start: 02-27-2025 End: 02-28-2025 [facility] Start: 02-27-2025 Respiratory pathogens DNA and RNA panel - Respiratory specimen by YADIRA with probe detection [facility] Start: 02-27-2025 [facility] Start: 02-27-2025 Admission procedure [facility] Start: 02-27-2025 Hospital admission, emergency, from emergency room, medical nature [facility] Start: 02-27-2025 Computed tomography of abdomen and pelvis with intravenous contrast Abdomen/Pelvis W IV Cont ONLY [facility] Start: 02-27-2025 CT of chest without contrast Chest without Contrast [facility] Start: 02-27-2025 Inhalation therapy procedure [facility] Start: 02-26-2025 End: 02-26-2025 [facility] Start: 02-26-2025 Bacteria identified in Blood by Culture Blood Culture [facility] Start: 02-26-2025 Bacteria identified in Urine by Culture Urine Culture [facility] Start: 02-02-2025 End: 02-02-2025 Professional / ancillary services management 02/02/2025 8:00 AM EDT Pulmonary Ancillary Visit [facility] Pulmonary Labs [address] [place] [address] [facility] Start: 01-18-2025 End: 01-18-2025 Patient encounter procedure 01/18/2025 9:40 AM EDT Office Visit [address] [address] Anna Sanders PA-C [address] [place] [address] [facility] Start: 01-08-2025 End: 01-08-2025 Patient encounter procedure 01/08/2025 10:20 AM EDT Office Visit [facility] Pulmonary [address] [place] [address] Veronica Butt, SUPERVISING BROKER-NABOR [address] [place] [address] [facility] Pulmonary Start: 11-17-2024 End: 11-17-2024 Patient encounter procedure 11/17/2024 2:00 PM EDT Office Visit [address] [address] Anna Sanders PA-C [address] [place] [address] [facility] Start: 10-24-2024 Welcome to Medicare Visit (G0402) Welcome to Medicare Visit (G0402) [facility] Start: 10-19-2024 End: 10-19-2024 Patient encounter procedure [facility] EXPLOSIVE ORDNANCE SPECIALIST Comment on above: S/P lumbar laminectomy [Z98.890] Start: 09-18-2024 End: 09-18-2024 Patient encounter procedure 09/18/2024 9:15 AM EST Office Visit [facility] [address] [facility] [place] [address] Lois Hoang MD 2 [facility] [place] [address] post op [facility] Comment on above: post op Start: 09-14-2024 End: 09-14-2024 Patient encounter procedure 09/14/2024 2:15 PM EST Office Visit [place] [id number] [facility] [id number] Lois Ho[facility] MD [facility], [place] [address] post op [facility] Comment on above: post op Start: 09-12-2024 End: 09-12-2024 ambulatory 09/12/2024 8:30 AM EST OT/PT/Speech Visit [facility] [address] [place] [address] Varun Sahni, PT [address] [place], [place] [id number] S/P lumbar laminectomy [Z98.890 [facility] Comment on above: S/P lumbar laminectomy [Z98.890 Start: 08-10-2024 End: 08-10-2024 Patient encounter procedure 08/10/2024 1:00 PM EST Office Visit [facility] [address] [place] [address] Lois Hoang MD [address] [facility], [place] [id number] post op [facility] Comment on above: post op Start: 07-28-2024 End: 07-28-2024 Admission to same day surgery center 07/28/2024 10:45 AM EST - 07/28/2024 1:30 PM EST Surgery [place] SUR[place]ERY OR [address] [facility] [place] [address] Lois Hoang MD [address] [facility] [place] [address] DECOMPRESSION LAMINECTOMY LUMBAR POSTERIOR LEVEL 1 [place] [...] Hospital Encounter [place] SURGERY OR [address] [place] [facility] [place] [address] Lois Hoang MD [address] [facility] [place] [address] Spinal stenosis of lumbar region with neurogenic claudication [M48.062] [place] [facility] [place] Comment on above: Spinal stenosis of lumbar region with ne urogenic claudication [M48.062] Start: 07-19-2024 Advance Directive Discussion Advance Directive Discussion [facility] Start: 07-14-2024 End: 10-13-2024 aPTT in Platelet poor plasma by Coagulation assay ACTIVATED PARTIAL THROMBOPLASTIN TIME Lab Routine Spinal stenosis of lumbar region with neurogenic claudication Abnormal coagulation profile Expected: 07/14/2024, Expires: 10/13/2024 [facility] Comment on above: Expected: 07/14/2024, Expires: Start: 07-14-2024 End: 10-13-2024 Bacteria identified in Urine by Culture URINE CULTURE Microbiology Routine Spinal stenosis of lumbar region with neurogenic claudication Other abnormal findings in urine Expected: 07/14/2024, Expires: 10/13/2024 [facility] Comment on above: Expected: 07/14/2024, Expires: Start: 07-14-2024 End: 10-13-2024 CBC panel - Blood by Automated count COMPLETE BLOOD COUNT Lab Routine Spinal stenosis of lumbar region with neurogenic claudication Other specified abnormal findings of blood chemistry Expected: 07/14/2024, Expires: 10/13/2024 [facility] Comment on above: Expected: 07/14/2024, Expires: Start: 07-14-2024 End: 10-13-2024 Comprehensive metabolic 2000 panel - Serum or Plasma COMPREHENSIVE METABOLIC PANEL Lab Routine Spinal stenosis of lumbar region with neurogenic claudication Expected: 07/14/2024, Expires: 10/13/2024 [facility] Comment on above: Expected: 07/14/2024, Expires: Start: 07-14-2024 End: 10-13-2024 PT panel - Platelet poor plasma by Coagulation assay PROTHROMBIN TIME Lab Routine Spinal stenosis of lumbar region with neurogenic claudication Abnormal coagulation profile Expected: 07/14/2024, Expires: 10/13/2024 [facility] Comment on above: Expected: 07/14/2024, Expires: Start: 07-14-2024 End: 10-13-2024 STAPHYLOCOCCUS AUREUS & MRSA SCREEN, PCR, NASAL STAPHYLOCOCCUS AUREUS & MRSA SCREEN, PCR, NASAL Lab Routine Spinal stenosis of lumbar region with neurogenic claudication Expected: 07/14/2024, Expires: 10/13/2024 [facility] Comment on above: Expected: 07/14/2024, Expires: Start: 07-14-2024 End: 10-13-2024 TYPE AND SCREEN,30 DAY TYPE AND SCREEN,30 DAY Blood Bank Routine Spinal stenosis of lumbar region with neurogenic claudication Expected: 07/14/2024, Expires: 10/13/2024 [facility] Comment on above: Expected: 07/14/2024, Expires: Start: 07-14-2024 End: 10-13-2024 Urinalysis complete panel - Urine URINALYSIS, WITH MICROSCOPIC Lab Routine Spinal stenosis of lumbar region with neurogenic claudication Expected: 07/14/2024, Expires: 10/13/2024 [facility] Comment on above: Expected: 07/14/2024, Expires: Start: 07-14-2024 End: 07-14-2024 ambulatory 07/14/2024 1:00 PM EST PAT Pre Surgical Testing [address] [place] [address] L2-L4 Laminectomy Pre Surgical Testing Comment on above: L2-L4 Laminectomy Start: 06-08-2024 End: 06-08-2024 Patient encounter procedure 06/08/2024 8:00 AM EST Appointment Cat Scan [address] [place], [place] [id number] CT chest w/o in scanned docs Cat Scan Comment on above: CT chest w/o in scanned docs Start: 06-06-2024 End: 06-06-2024 Patient encounter procedure [facility] ORDNANCE SPECIALIST Comment on above: XR LUMBAR 2 MO F/U Start: 06-05-2024 End: 06-05-2024 Patient encounter procedure [facility]PL[facility] ORDNANCE SPECIALIST Comment on above: XR LUMBAR 2 MO F/U XR LUMBAR AP/LAT/FLE X/EXT Start: 05-11-2024 End: 05-11-2024 Follow-up encounter 05/11/2024 3:15 PM EDT [facility] Spine and Pain Call [address] [place] [address] Bertha Kaur APRN.DERRICK BUILDER [address] [place] [address] MBB follow up 2 of 2 Spine and Pain Call Comment on above: MBB follow up 2 of 2 Start: 05-10-2024 End: 05-10-2024 ambulatory Spine and Pain Call Comment on above: B/L MBNB L3-L4, L4-L5, w fluoro Medial Branch Block (Diagnostic only, NO STEROIDS) under fluoroscopic guidance BILATERAL SIDES at L3-4 and L4-5 (2 OF 2) Start: 04-27-2024 End: 04-27-2024 Follow-up encounter 04/27/2024 3:15 PM EDT [facility] Spine and Pain Call [address] [place] [address] Bertha Kaur APRN.DERRICK BUILDER [address] [place] [address] MBB follow up 1 of 2 Spine and Pain Call Comment on above: MBB follow up 1 of 2 Start: 04-26-2024 End: 04-26-2024 ambulatory 04/26/2024 7:50 AM EDT Procedure [facility] Call [address] [place], [place] [address] Everton Sanchez MD [address] [place], [place] [id number] B/L MBNB L3-L4, L4-L5, w fluoro Spine and Pain Call Comment on above: B/L MBNB L3-L4, L4-L5, w fluoro Start: 04-24-2024 [facility] Start: 2024 Abdominal aortic aneurysm screening Abdominal Aortic Aneurysm Imaging [facility] Start: 2024 Advance Directive Discussion Advance Directive Discussion [facility] Start: 2024 Pneumococcal vaccination Pneumococcal Vaccine (3 of 3 - PPSV23 or PCV20) [facility] Start: 2024 Pneumococcal Vaccine: 65+ (3 of 3 - PPSV23 or PCV20) Pneumococcal Vaccine: 65+ (3 of 3 - PPSV23 or PCV20) [facility] Start: 04-06-2024 End: 04-06-2024 Patient encounter procedure 04/06/2024 9:30 AM EDT [address] [facility] [place] [address] Lois Hoang MD [address] [place] [address] lower back pain [facility] Comment on above: lower back pain Start: 03-30-2024 End: 03-30-2024 Follow-up encounter Spine and Pain Call Comment on above: Follow up from [facility] FOLLOW UP FROM ILESI L4-L5 Start: 03-19-2024 Covid-19 Vaccine ( season) Covid-19 Vaccine () [facility] Start: 03-19-2024 Covid-19 Vaccine ( season) Covid-19 Vaccine () [facility] Start: 03-19-2024 Influenza vaccination [facility] Start: 03-16-2024 End: 03-16-2024 ambulatory Spine and Pain Call Comment on above: PENDING - CAD ILESI L4-L5 W Fluoro; PLAV IX OKAY TO HOLD FOR 7 DAYS FC AUTH GOOD - CAD I LESI L4-L5 W Fluoro; PLAVIX OKAY TO HOLD FOR 7 DAYS Start: 02-10-2024 End: 02-10-2024 Patient encounter procedure 02/10/2024 9:15 AM EDT Office Visit Pulmonary Medicine [address] [place] [address] Shelton Flores MD [address] [place] [address] lung nodules 3 mos followup Pulmonary Medicine Comment on above: lung nodules 3 mos followup Start: 01-10-2024 End: 01-10-2024 Patient encounter procedure 01/10/2024 1:00 PM EDT Office Visit Allergy [address] [address] Anna Abbott MD [address] [place], [place] [phone] allergies Allergy Comment on above: allergies Start: 01-04-2024 End: 01-04-2024 Follow-up encounter 01/04/2024 1:45 PM EDT [facility] Spine and Pain Call [facility] [place] [address] Catherine Champion APRN.DERRICK BUILDER [address] [place] [address] Follow up from [facility] #2 Spine and Pain Call Comment on above: Follow up from [facility]BB #2 Start: 12-31-2023 End: 12-31-2023 ambulatory Spine and Pain Call Comment on above: B/L MBNB L4-L5, L5-S1 w fluoro X2 PENDING - CAD B/L MB NB L4-L5, L5-S1 w fluoro; PLAVIX - NO HOLD NEEDED (2 OF 2) DENIED - CAD B/L MBN B L4-L5, L5-S1 w fluoro; PLAVIX - NO HOLD NEEDED (2 OF 2) Start: 12-29-2023 End: 12-29-2023 Patient encounter procedure [facility] PULMONARY TESTING Comment on above: Lung nodules [R91.8] Start: 12-22-2023 End: 12-22-2023 Follow-up encounter Spine and Pain Call Comment on above: Follow up from [facility] Follow up from [facility] # 1 (Please let Bertha know when this is completed so she can do the appeal letter) Start: 12-16-2023 End: 12-16-2023 ambulatory Spine and Pain Call Comment on above: B/L MBNB L4-L5, L5-S1 w fluoro X2 AUTH GOOD - CAD B/L MBNB L4-L5, L5-S1 w fluoro; PLAVIX - NO HOLD NEEDED (1 OF 2) Start: 11-25-2023 End: 11-25-2023 Follow-up encounter 11/25/2023 2:15 PM EDT [facility] Spine and Pain Call [address] [place] [address] Bertha Kaur APRN.DERRICK BUILDER [address] [place] [address] Follow up from MRI Spine and Pain Call Comment on above: Follow up from MRI Start: 11-19-2023 End: 11-19-2023 Patient encounter procedure 11/19/2023 12:00 PM EDT Appointment Radiology [address] [place] [address] MRI LUMBAR SPINE WO IVCON Radiology Comment on above: MRI LUMBAR SPINE WO IVCON Start: 07-19-2023 Depression Assessment Depression Assessment [facility] Start: 03-19-2023 Covid-19 Vaccine ( season) Covid-19 Vaccine ( season) [facility] Start: 03-19-2023 Influenza vaccination Influenza Vaccine (#1) [facility] Start: 06-04-2022 Pneumococcal vaccination Pneumococcal Vaccine(s) (50+ yrs) (3 of 3 - PCV20 or PCV21) [facility] Start: 06-04-2022 Pneumococcal Vaccine: 50+ (3 of 3 - PCV20 or PCV21) Pneumococcal Vaccine: 50+ (3 of 3 - PCV20 or PCV21) [facility] Start: 04-24-2022 Diabetes Screening Diabetes Screening [facility] Start: 2019 Hepatitis B (HBV) Vaccine (optional start 60+ years) Hepatitis B (HBV) Vaccine (optional start 60+ years) [facility] Start: 2019 RSV Vaccine (1 - 1-dose 60+ series) RSV Vaccine (1 - 1-dose 60+ series) [facility] Start: 2019 RSV Vaccine (1 - Risk 60-74 years 1-dose series) RSV Vaccine (1 - Risk 60-74 years 1-dose series) [facility] Start: 2019 RSV vaccine (adult) (1 - Risk 60-74 years 1-dose series) RSV vaccine (adult) (1 - Risk 60-74 years 1-dose series) [facility] Start: 2019 RSV vaccine (optional 60+ years) RSV vaccine (optional 60+ years) [facility] Start: 2014 Prostate specific antigen measurement Prostate Cancer Screening Discussion [facility] Start: 2009 Measurement of occult blood in single stool specimen FIT [facility] Start: 2009 Screening for malignant neoplasm of colon CRC Screening [facility] Start: 2009 Shingrix Vaccine (1 of 2) Shingrix Vaccine (1 of 2) [facility] Start: 2009 Varicella-zoster vaccine (product) Shingles (RZV) Vaccine (1 of 2) [facility] Start: 2004 Prostate specific antigen measurement Prostate Cancer Screening Discussion [facility] Start: 2004 Screening for malignant neoplasm of colon [facility] Start: 1989 Zoledronic acid therapy Alpha-1 Antitrypsin Deficiency Screening [facility] Start: 1978 Hepatitis A (HAV) Vaccine (optional start 19+ years) Hepatitis A (HAV) Vaccine (optional start 19+ years) [facility] Start: 1977 Annual PCP Team Chronic Disease Visit Annual PCP Team Chronic Disease Visit [facility] Start: 1977 Anxiety Screening Anxiety Screening [facility] Start: 1977 BP Controlled (<130/80) BP Controlled (<130/80) [facility] Start: 1977 Depression Screening Depression Screening [facility] Start: 1977 Hepatitis C screening [facility] Start: 1977 HIV screening HIV Screening [facility] Start: 1977 Tetanus + diphtheria + acellular pertussis vaccine (product) Tdap Booster [facility] Start: 1974 HIV screening HIV Test [facility] Start: 1964 COVID-19 Vaccine (1) COVID-19 Vaccine (1) [facility] Start: 1959 COVID-19 Vaccine (#1) COVID-19 Vaccine (#1) [facility] Start: 1959 Abdominal aortic aneurysm screening Abdominal Aortic Aneurysm Screening [facility] Start: 1959 Prostate specific antigen measurement Prostate Cancer Screening (shared decision making) [facility] Start: 1959 Screening for malignant neoplasm of colon Colonoscopy [facility] Assay of magnesium MAGNESIUM Lab Routine Daily until discontinued starting 10/25/2024, 2 completed [facility] Comment on above: Daily until discontinued starting 2024, 2 completed Basic metabolic 2000 panel - Serum or Plasma BASIC METABOLIC PANEL Lab Routine Daily until discontinued starting 10/25/2024, 2 completed [facility] Work Phone: Comment on above: Daily until discontinued starting 2024, 2 completed CBC W Auto Different ial panel - Blood COMPLETE BLOOD COUNT W/DIFF Lab Routine Daily until discontinued starting 10/25/2024, 2 completed [facility] Comment on above: Daily until discontinued starting 2024, [address] Chest WO contrast CT CHEST WO IVCON Radiology Routine Wheezing 09/02/2023 1:22 PM EST [facility] Work Phone: End: 12-10-2024 CT Chest WO contrast CT CHEST WO IVCON Radiology Routine Lung nodules 1 Occurrences starting 11/11/2023 until 12/10/2024 [facility] Work Phone: Comment on above: 1 Occurrences starting 11/11/2023 until 12/10/2024 CT Chest WO contrast CT CHEST WO IVCON Radiology Routine Lung nodules 12/29/2023 11:14 AM EDT [facility] Work Phone: End: 07-14-2025 ECG COMPLETE ECG COMPLETE ECG Routine Spinal stenosis of lumbar region with neurogenic claudication 1 Occurrences starting 07/14/2024 until 07/14/2025 [facility] Comment on above: 1 Occurrences starting 07/14/2024 until 07/14/2025 Ecg routine ecg w/le ast 12 lds trcg only w/o i&r EKG 12 LEAD - PERFORM MUSE Routine COPD exacerbation (HCC) Ordered: 10/26/2024 [facility] Comment on above: Ordered: 10/26/2024 End: 11-10-2024 Echocardiography ECHO Cardiology Routine Lung nodules Severe persistent asthma, unspecified whether complicated 1 Occurrences starting 11/11/2023 until 11/10/2024 [facility] Comment on above: 1 Occurrences starting 11/11/2023 until 11/10/2024 End: 10-24-2024 EXTRA TUBE EXTRA TUBE Lab Routine One time for 1 Occurrences starting 10/24/2024 until 10/24/2024 [facility] Work Phone: Comment on above: One time for 1 Occurrences starting 02/2025 until 10/24/2024 Folate [Moles/volume ] in Serum or Plasma [facility] H&P for surgery H&P FOR SURGERY Procedures Routine Spinal stenosis of lumbar region with neurogenic claudication Ordered: 07/14/2024 [facility] Work Phone: Comment on above: Ordered: 07/14/2024 End: 11-10-2024 HOME SLEEP APNEA TEST (HSAT) HOME SLEEP APNEA TEST (HSAT) Procedures Routine Lung nodules Severe persistent asthma, unspecified whether complicated 1 Occurrences starting 11/11/2023 until 11/10/2024 [facility] Comment on above: 1 Occurrences starting 11/11/2023 until 11/10/2024 INHALANT ALLERGEN PANEL INHALANT ALLERGEN PANEL Lab Routine Environmental and seasonal allergies 01/08/2025 11:28 AM EDT [facility] Lactic acid measurement [facility] LUNG DIFFUSION CAPAC ITY (DLCO) LUNG DIFFUSION CAPACITY (DLCO) PFT Routine Chronic obstructive pulmonary disease, unspecified COPD type (HCC) 09/02/2023 10:49 AM EST [facility] Work Phone: LUNG VOLUMES LUNG VOLUMES PFT Routine Chronic obstructive pulmonary disease, unspecified COPD type (HCC) 09/02/2023 10:49 AM EST [facility] Work Phone: End: 11-27-2024 MR Lumbar spine WO contrast MRI LUMBAR SPINE WO IVCON Radiology Routine Spinal 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 1 Occurrences starting 10/29/2023 until 11/27/2024 [facility] Work Phone: Comment on above: 1 Occurrences starting 10/29/2023 until 11/27/2024 Njx dx/ther agt pvrt facet jt lmbr/sac 1 level NJX DX/THER AGT PVRT FACET JT LMBR/SAC 1 LEVEL Procedures Routine Lumbar spondylosis Ordered: 10/28/2023 [facility] Work Phone: Comment on above: Ordered: 10/28/2023 Njx dx/ther agt pvrt facet jt lmbr/sac 1 level NJX DX/THER AGT PVRT FACET JT LMBR/SAC 1 LEVEL Procedures Routine Lumbar spondylosis Ordered: 12/16/2023 [facility] Work Phone: Comment on above: Ordered: 12/16/2023 Njx dx/ther agt pvrt facet jt lmbr/sac 1 level NJX DX/THER AGT PVRT FACET JT LMBR/SAC 1 LEVEL Procedures Routine Lumbar spondylosis Ordered: 04/26/2024 [facility] Work Phone: Comment on above: Ordered: 04/26/2024 Njx dx/ther agt pvrt facet jt lmbr/sac 1 level NJX DX/THER AGT PVRT FACET JT LMBR/SAC 1 LEVEL Procedures Routine Lumbar spondylosis Ordered: 05/10/2024 [facility] Work Phone: Comment on above: Ordered: 05/10/2024 Njx dx/ther agt pvrt facet jt lmbr/sac 2nd level NJX DX/THER AGT PVRT FACET JT LMBR/SAC 2ND LEVEL Procedures Routine Lumbar spondylosis Ordered: 10/28/2023 [facility] Work Phone: Comment on above: Ordered: 10/28/2023 Njx dx/ther agt pvrt facet jt lmbr/sac 2nd level NJX DX/THER AGT PVRT FACET JT LMBR/SAC 2ND LEVEL Procedures Routine Lumbar spondylosis Ordered: 12/16/2023 [facility] Comment on above: Ordered: 12/16/2023 Njx dx/ther agt pvrt facet jt lmbr/sac 2nd level NJX DX/THER AGT PVRT FACET JT LMBR/SAC 2ND LEVEL Procedures Routine Lumbar spondylosis Ordered: 04/26/2024 [facility] Comment on above: Ordered: 04/26/2024 Njx dx/ther agt pvrt facet jt lmbr/sac 2nd level NJX DX/THER AGT PVRT FACET JT LMBR/SAC 2ND LEVEL Procedures Routine Lumbar spondylosis Ordered: 05/10/2024 [facility] Comment on above: Ordered: 05/10/2024 Njx dx/ther sbst int rlmnr lmbr/sac w/img gdn EPI LUMBAR OR SACRAL W/IMAGING Procedures Routine Lumbar radiculopathy Ordered: 03/16/2024 [facility] Work Phone: Comment on above: Ordered: 03/16/2024 Patient Education Treating Wrist Fractures [facility] Work Phone: Patient referral [facility] Work Phone: End: 07-07-2025 PULMONARY LAB-SPECIFIC TESTING SERVICE RQST PULMONARY LAB-SPECIFIC TESTING SERVICE RQST PFT Routine Reactive airway disease without complication, unspecified asthma severity, unspecified whether persistent (HCC) 1 Occurrences starting 01/08/2025 until 07/07/2025 [facility] Comment on above: 1 Occurrences starting 01/08/2025 until 07/07/2025 Smr prim src gram/gi emsa stain bct fungi/cell RESPIRATORY CULTURE, MISC Microbiology Routine 10/25/2024 12:47 PM EDT [facility] Work Phone: Troponin T.cardiac [Mass/volume] in Serum or Plasma by High sensitivity method [facility] Urine culture [facility] End: 08-13-2025 XR Chest PA and Lateral XR CHEST 2V FRONTAL/LAT Radiology Routine Spinal stenosis of lumbar region with neurogenic claudication 1 Occurrences starting 07/14/2024 until 08/13/2025 [facility] Comment on above: 1 Occurrences starting 07/14/2024 until 08/13/2025 End: 07-14-2024 XR Chest PA and Lateral [facility] Work Phone: Comment on above: 1 Occurrences starting 07/14/2024 until 07/14/2024 End: 09-09-2025 XR Lumbar spine 2 Views XR LUMBAR LIMITED 2V FLEX/EXT Radiology Routine S/P lumbar laminectomy 1 Occurrences starting 08/10/2024 until 09/09/2025 [facility] Work Phone: Comment on above: 1 Occurrences starting 08/10/2024 until 09/09/2025 End: 05-04-2025 XR Lumbar spine AP and Lateral XR LUMBAR LIMITED 2V AP/LAT Radiology Routine Low back pain, unspecified back pain laterality, unspecified chronicity, unspecified whether sciatica present 1 Occurrences starting 04/04/2024 until 05/04/2025 [facility] Work Phone: Comment on above: 1 Occurrences starting 04/04/2024 until 05/04/2025 End: 05-06-2025 XR Lumbar spine Views W flexion and W extension XR LUMBAR MOTION 4V AP/LAT/ FLEX/EXT Radiology Routine Low back pain, unspecified back pain laterality, unspecified chronicity, unspecified whether sciatica present 1 Occurrences starting 04/06/2024 until 05/06/2025 [facility] Comment on above: 1 Occurrences starting 04/06/2024 until 05/06/2025 XR Lumbar spine View s W flexion and W extension XR LUMBAR MOTION 4V AP/LAT/ FLEX/EXT Radiology Routine Low back pain, unspecified back pain laterality, unspecified chronicity, unspecified whether sciatica present 06/05/2024 8:59 AM EST [facility] Work Phone: [facility] Immunizations Immunization Date Immunization Notes Care Provider Ck belcher 01-08-2025 Pneumococcal conjuga te 20 valent (PCV20), polysaccharide [id number] conjugate, adjuvant, PF (YFJ=509) Veronica Butt [employer] [facility] Work Phone: [facility] 01-08-2025 Respiratory syncytia l virus (RSV), vaccine, bivalent, protein subunit RSV prefusion F, diluent reconstituted, 0.5 mL, preservative free (DEY=092) Veronica Butt [employer] [facility] Work Phone: [facility] 10-24-2024 Hemoglobin A1C Aura Wagner MD Work Phone: [facility] 06-14-2023 tetanus toxoid, redu seda diphtheria toxoid, and acellular pertussis vaccine, [facility] 04-24-2019 influenza, injectabl e, quadrivalent, preservative free [facility] 04-24-2019 influenza virus vacc ine, unspecified formulation [facility] Work Phone: [facility] 06-04-2017 influenza, injectabl e, quadrivalent, preservative free [facility] 06-04-2017 pneumococcal polysaccharide vaccine, 23 valent [facility] 05-26-2017 Influenza virus vaccine W [facility] 05-26-2017 influenza virus vacc ine, split virus (incl. purified surface antigen) Brooke Wu RN [facility] 05-26-2017 influenza, seasonal, injectable, preservative free Brooke Wu RN [facility] 05-26-2017 pneumococcal conjuga te vaccine, 13 valent [facility] 06-08-2015 pneumococcal conjuga te vaccine, 13 valent [facility] 06-05-2015 influenza, seasonal, injectable, preservative free [facility] Payers Date Payer Category Payer Self-pay [id number] [phone] 2024 Medicare FFS MEDICARE [id number] 2024 Commercial Indemni [id number] 2024 Miscellaneous or Other HOSPITAL/ MEDICAL GENERIC [id number] 2024 Unknown [id number] 2024 Medicare [id number] 2024 Medicare [id number] 2018 Unknown [id number] 2016 Unknown [id number] 1959 Unknown [id number]. 732 1959 Unknown [id number] 2.16.840.1.095480.3.579.2. 732 1959 Unknown [id number] 2.16.840.1.233951.3.579.2. 732 1959 Unknown [id number] 2.16.840.1.013038.3.579.2. 73 1959 Unknown [id number] 2.16.840.1.028873.3.579.2. 73 1959 Unknown [id number] 2.840.1.878416.3.579.2. 73 1959 Unknown [id number] 2.840.1.478400.3.579.2. 732 1959 Unknown [id number] 2.840.1.154198.3.579.2. 732 Unknown 0000 [id number] Unknown [id number] 2.16840.1.567455.3.579.2. 462 Unknown [id number] 2.16840.1.117393.3.579.2. 462 Unknown [id number] 2.16840.1.133125.3.579.2. 462 Unknown [id number] 2.840.1.544801.3.579.2. 462 Unknown [id number] 2.16840.1.231838.3.579.2. 462 Unknown [id number] 2.16.840.1.732692.3.579.2. 462 Unknown [id number] 2.16.840.1.240198.3.579.2. 462 Unknown [id number] 2.16840.1.460766.3.579.2. 462 Unknown [id number] [id number]. 462 Social History Date Type Detail Facility Start: 04-22-2019 End: 03-22-2022 Tobacco smoking status KSIS Tobacco smoking consumption unknown [facility] Start: 1960 [facility] Start[facility] 04-23-2019 Heavy [facility] Start: 04-22-2019 None [facility] Start: 04-22-2019 Spouse/ Signif icant Other [facility] Start: 04-23-2019 Cigarettes [facility] Start: 1960 Sex Assigned At Male W [facility] Start: 06-14-2023 End: 02-27-2025 Tobacco smoking status KSIS Smokes tobacco daily [facility] History of tobacco use Cigarette Smoker C [facility] Start: 06-14-2023 End: 10-24-2024 Cigarettes smoked current (pack per day) - Reported 2 [facility] Start: 06-14-2023 End: 01-08-2025 Tobacco use and exposure Smokeless tobacco non-user [facility] Start: 08-20-2023 End: 10-24-2024 Alcohol intake Current drinker of alcohol (finding) [facility] Start: 08-20-2023 End: 10-24-2024 Tobacco use panel [facility] National Score (1-100), lower number is lower risk 53 [facility] Start: 06-14-2023 Alcohol Comment 6 pack a day [facility] Start: 04-06-2024 End: 07-14-2024 Tobacco smoking status NHIS Ex-smoker [facility] History of tobacco use Current smoker [facility] Start: 04-06-2024 Tobacco Comment Quit smoking a week or so ago (04/06/24) [facility] Start: 07-14-2024 Tobacco Comment Quit smoking a week or so ago (04/06/24)Smoked for about 35 years max 2 ppd [facility] Start: 07-14-2024 Alcohol Comment 30 cans beer per randy k [facility] Start: 07-14-2024 Tobacco Comment Quit smoking a week or so ago (04/06/24)Smoked for about 35 years 1- 2 [facility] Has the [employer], [employer], [employer], or water company threatened to shut off services in your home in past 12Mo No [facility] (I/We) worried wheth er (my/our) food would run out before (I/we) got money to buy more. Never true [facility] Start: 04-23-2019 Sex Male (finding) [facility] Start: 11-17-2024 End: 01-08-2025 Tobacco smoking status [...] Assessment Result Facility 03-05-2025 Functional status Ambulates [facility] Work Phone: 03-04-2025 Functional status Tolerates Activity Well [facility] Work Phone: 07-29-2024 Are you deaf, or do you have serious difficulty hearing No 07/29/2024 3:21 PM Kip Bridges RN No [facility] 07-29-2024 Are you blind, or do you have serious difficulty seeing, even when wearing glasses No 07/29/2024 3:21 PM Kpi Bridges RN No [facility] 07-29-2024 Do you have serious difficulty walking or climbing stairs No 07/29/2024 3:21 PM Kip Bridges RN No [facility] 07-29-2024 Do you have difficul ty dressing or bathing No 07/29/2024 3:21 PM Kip Bridges, NEENA No [facility] 07-29-2024 Because of a physica l, mental, or emotional condition, do you have difficulty doing errands alone such as visiting a physician's office or shopping No 07/29/2024 3:21 PM Kip Bridges RN No [facility] 04-23-2019 Are you deaf, or do you have serious difficulty hearing No 04/23/2019 9:00 PM Cynthia Raphael, RN No [facility] 04-23-2019 Are you blind, or do you have serious difficulty seeing, even when wearing glasses Yes 04/23/2019 9:00 PM Cynthia Raphael, RN Yes [facility] 04-23-2019 Do you have serious difficulty walking or climbing stairs No 04/23/2019 9:00 PM EDT Cynthia Cohn, RN No [facility] 04-23-2019 Do you have difficul ty dressing or bathing No 04/23/2019 9:00 PM EDT Cynthia Cohn, RN No [facility] 04-23-2019 Because of a physica l, mental, or emotional condition, do you have difficulty doing errands alone such as visiting a physician's office or shopping No 04/23/2019 9:00 PM EDT Cynthia Cohn, RN No [facility] Mental Status Date Assessment Result Facility 03-05-2025 Cognitive function Voice/Name [facility] Work Phone: 02-26-2025 Cognitive function Level Of Cons ciousness Awake;Alert;Appropriate;Fo llows Commands [facility] Work Phone: 07-29-2024 Because of a physica l, mental, or emotional condition, do you have serious difficulty concentrating, remembering, or making decisions No 07/29/2024 3:21 PM Kip Bridges, NEENA No [facility] 04-23-2019 Because of a physica l, mental, or emotional condition, do you have serious difficulty concentrating, remembering, or making decisions No 04/23/2019 9:00 PM EDT Cynthia Cohn, NEENA No [facility] Clinical Notes 08-20-2023 to 03-09-2025 Telephone Encounter - Anna Sanders PA-C - 03/09/2025 6:20 AM EDTTelephone Encounter - Anna Sanders PA-C - 03/09/2025 6:20 AM EDT Note Date & Type Note Facility 03-09-2025 Telephone encounter Note Form atting of this note might be different from the original. Pt is not taking Nexium according to his chart [facility] 03-09-2025 Miscellaneous Notes Formattin g of this [...] MG/3ML nebulizer solution Pharmacy name: Annika with [facility] phone: [phone] Please contact pharmacy to clarify or submit an updated prescription. Thank you. documented in this encounter [facility] 03-09-2025 Telephone encounter Note Form atting of this note might be different from the original. Did the hospital decrease the lisinopril? If so he should take whats on his discharge orders [facility] 03-09-2025 Miscellaneous Notes Formattin g of this note might be different from the original. Did the hospital decrease the lisinopril? If so he should take whats on his discharge orders Situation: Greta from [facility] calling Background: pt was admitted [...] further questions Greta can be reached at [phone] Mi was contacted and informed that STEVE Sanders agrees to follow this pt for home care. Yes I am Situation: Mi calling from [facility]. They are schedule to start home car services tomorrow for SN/PT/OT and speech therapies Background: pt recently was hospitalized for aspiration pneumonia, resp failure and sepsis Assessment: - Recommendation: asking is you's be willing to follow this patient. They can be reached at [phone]. documented in this encounter [facility] 03-08-2025 Telephone encounter Note Form atting of [...] MG/3ML nebulizer solution Pharmacy name: Annika with [facility] phone: [phone] Please contact pharmacy to clarify or submit an updated prescription. Thank you. [facility] 03-08-2025 Telephone encounter Note Form atting of this note might be different from the original. Situation: Annika with [facility] calling to let provider know PT was started Background: Annika is asking for order for forward wheeled walker for Pt Assessment: - Recommendation: Please return call to Annika: [phone] and is secure line for voicemail. [facility] 03-08-2025 Miscellaneous Notes Formattin g of this note might be different from the original. Situation: Annika with [facility] calling to let provider know PT was started Background: Annika is asking for order for forward wheeled walker for Pt Assessment: - Recommendation: Please return call to Annika: [phone] and is secure line for voicemail. documented in this encounter [facility] 03-08-2025 Telephone encounter Note Form atting of this note might be different from the original. Situation: l[facility] speech therapist, calling from [facility] wanted to notify that will be seeing pt for speech therapy next week instead of this week. Background: n/a Assessment: n/a Recommendation: will route to pcp [facility] 03-08-2025 Miscellaneous Notes Formattin g of this note might be different from the original. Situation: loida speech therapist, calling from [facility] wanted to notify that will be seeing pt for speech therapy next week instead of this week. Background: n/a Assessment: n/a Recommendation: will route to pcp documented in this encounter [facility] 03-07-2025 Telephone encounter Note Form atting of this note might be different from the original. Situation: Greta from [facility] calling Background: pt was admitted [...] further questions Greta can be reached at [phone] [facility] 03-07-2025 Miscellaneous Notes Formattin g of this note might be different from the original. Situation: Greta from [facility] calling Background: pt was admitted and had [...] further questions Greta can be reached at [phone] Mi was contacted and informed that STEVE Sanders agrees to follow this pt for home care. Yes I am Situation: Mi calling from [facility]. They are schedule to start home car services tomorrow for SN/PT/OT and speech therapies Background: pt recently was hospitalized for aspiration pneumonia, resp failure and sepsis Assessment: - Recommendation: asking is you's be willing to follow this patient. They can be reached at [phone]. documented in this encounter [facility] 03-06-2025 Telephone encounter Note Form atting of this note might be different from the original. Mi was contacted and informed that Mr Tommy PA-C agrees to follow this pt for home care. [facility] 03-06-2025 Miscellaneous Notes Formattin g of this note might be different from the original. Mi was contacted and informed that STEVE Sanders agrees to follow this pt for home care. Yes I am Situation: Mi calling from [facility]. They are schedule to start home car services tomorrow for SN/PT/OT and speech therapies Background: pt recently was hospitalized for aspiration pneumonia, resp failure and sepsis Assessment: - Recommendation: asking is you's be willing to follow this patient. They can be reached at [phone]. documented in this encounter [facility] 03-06-2025 Telephone encounter Note Form atting of this note might be different from the original. Yes I am [facility] 03-06-2025 Telephone encounter Note Form atting of this note might be different from the original. Situation: Mi calling from [facility]. They are schedule to start home car services tomorrow for SN/PT/OT and speech therapies Background: pt recently was hospitalized for aspiration pneumonia, resp failure and sepsis Assessment: - Recommendation: asking is you's be willing to follow this patient. They can be reached at [phone]. [facility] 03-05-2025 Discharge summary [facility] 03-05-2025 Note [facility] Medical Records Department [address] [place] [address] Discharge Summary 03/05/25 1626 MR#: [id number] Acct: [id number] Name: SANJUELIS J Rep #: [id number] : 1960 64 From: Antonio Elena COYLE PCP: Anna Sanders PA-C Status:DIS IN Location: [facility] [id number] Providers Date of Admission: 02/27/25 Date of Discharge: 03/05/25 Primary Care Physician: Anna Sanders PA-C Consultations 02/28/25 10:18 Consult: Water Operator / Pulmonary Medicine Routine Consulting Provider: Intensivists/Pulmonary [...] was seen in the emergency room at [facility] with complaint of altered mental status per and generalized weakness. noted the patient to be confused at home and decided to call squad to bring the patient to [facility] ER for evaluation. Workup in the [...] cardiomegaly with mi (more content not included)... [facility] 03-05-2025 Progress note Note Date/Time March 05, 2025 1:04pm [facility] Medical Records Department [address] [place] [address] Progress Note - Infect Disease 03/05/25 1303 MR#: [id number] Acct: [id number] Name: ELIS BILLS Rep #:[id number] : 1960 64 From: Pilar villavicencio MD PCP: Anna Sanders PA-C Status:ADM IN Location: [place] [address] Physical Exam Narrative Feeling much better, no [...] Cosigner Signature (if applicable): CC: ~ Signed [facility] Work Phone: 1(833) 406-364108-18-2025 Hospital Discharge instructionsAdditional Instructions [facility]: [facility] Phone: 1(910) 998-251408-18-2025 Progress note [facility] Medical Records Department [address] [place] [address] Progress Note - Infect Disease 03/05/25 1303 MR#: [id number] Acct: [id number] Name: ELIS BILLS Rep #:[id number] : 1960 64 From: Pilar villavicencio MD PCP: Anna Sanders PA-C Status:ADM IN Location: [place] [address] Physical Exam Narrative Feeling much better, no [...] Cosigner Signature (if applicable): CC: ~ Signed [facility]08-17-2025 Progress note Author Antonio Tereletsky [facility] Note Date/Time March 04, 2025 6: 43pm [facility] Medical Records Department [address] [place] [address] Progress Note - Hospitalist 03/04/251838 MR#: [id number] Acct: [id number] Name: ELIS BILLS Rep #:[id number] : 1960 64 From: Antonio Parker DO PCP: Anna Sanders PA-C Status:ADM IN Location: [place] [address] Reason for Visit Chief Complaint: AMS. Subjective [...] 35- minutes Charges/Coding Visit Charges Inpatient E&M: 08723 Subs Hosp L2 03/04/25 1843 <Electronically signed by Antonio Parker DO> Cosigner Signature (if applicable): CC: ~ Signed [facility] Work Phone: 1(893) 962-380508-17-2025 Progress note [facility] Medical Records Department [address] [place] [address] Progress Note - Hospitalist 03/04/25 1839 MR#: [id number] Acct: [id number] Name: ELIS BILLS Rep #:[id number] : 1960 64 From: Antonio Parker DO PCP: Anna Sanders PA-C Status:ADM IN Location: [place] [address] Reason for Visit Chief Complaint: AMS. Subjective [...] team: 35-minutes Charges/Coding Visit Charges Inpatient E&M: 49156 Subs Hosp L2 03/04/25 1843 Cosigner Signature (if applicable): CC: ~ Signed [facility]08-16-2025 Progress note Author Antonio Parker [facility] Note Date/Time March 03, 2025 7: 00pm [facility] Medical Records Department [address] [place] [address] Progress Note - Hospitalist 03/03/25 185 MR#: [id number] Acct: [id number] Name: ELIS BILLS Rep #:[id number] : 1960 64 From: Antonio Parker DO PCP: Anna Sanders PA-C Status:ADM IN Location: [place] [address] Reason for Visit Chief Complaint: AMS. Subjective [...] diseases, again patient appears stable for transfer [facility] for further care #2 aspiration pneumonia-patient will [...] 35- minutes Charges/Coding Visit Charges Inpatient E&M: 20021 Subs Hosp L2 03/03/25 1900 <Electronically signed by Antonio Parker DO> Cosigner Signature (if applicable): CC: ~ Signed [facility] Work Phone: 1(772) 270-803408-16-2025 Progress note Author Alli Vijay [facility] Note Date/Time March 03, 2025 6: 02pm [facility] Medical Records Department [address] [facility] [place] [address] Progress Note - Water Operator 03/03/251748 MR#: [id number] Acct: [id number] Name: ELIS BILLS Rep #:[id number] : 1960 64 From: Alli Richard PCP: Anna Sanders PA-C Status:ADM IN Location: [place] [id number]- [id number] Objective Data Objective Data Vital Signs: [...] 02/26/25 20:48 thru 03/03/25 15:42 Intake Total 52629.20 Output Total 6428 Balance 5884.20 Current Meds [...] mls @ 15 mls/hr 02/27/25 02:04 IV .[id number] PRN Saline Flush Sodium Chloride 250 mls @ 15 mls/hr 02/27/25 02:04 IV .[id number] PRN Additional IVPB Infusion Metronidazole 500 mg [...] Cosigner Signature (if applicable): CC: ~ Signed [facility] Work Phone: 1(636) 113-370908-16-2025 Progress note [facility] Medical Records Department [address] [place] [address] Progress Note - Hospitalist 03/03/25 185 MR#: [id number] Acct: [id number] Name: ELIS BILLS Rep #:[id number] : 1960 64 From: Antonio Parker DO PCP: Anna Sanders PA-C Status:ADM IN Location: [place] [address] Reason for Visit Chief Complaint: AMS. Subjective [...] team: 35-minutes Charges/Coding Visit Charges Inpatient E&M: 31905 Subs Hosp L2 03/03/25 1900 Cosigner Signature (if applicable): CC: ~ Signed [facility]08-16-2025 Progress note [facility] Medical Records Department [address] [place] [address] Progress Note - Water Operator 03/03/25 1749 MR#: [id number] Acct: [id number] Name: ELIS BILLS Rep #:[id number] : 1960 64 From: Alli Richard PCP: Anna Sanders PA-C Status:ADM IN Location: [place] [id number]- 1 Objective Data Objective Data Vital Signs: [...] 02/26/25 20:48 thru 03/03/25 15:42 Intake Total 98454.20 Output Total 6428 Balance 5884.20 Current Meds [...] mls @ 15 mls/hr 02/27/25 02:04 IV .[id number] PRN Saline Flush Sodium Chloride 250 mls @ 15 mls/hr 02/27/25 02:04 IV .[id number] PRN Additional IVPB Infusion Metronidazole 500 mg [...] Cosigner Signature (if applicable): CC: ~ Signed [facility]08-15-2025 Progress note Author Armani Tolbert [facility] Note Date/Time March 02, 2025 2: 51pm [facility] Medical Records Department [address] [place] [address] Progress Note - Hospitalist 03/02/25 1058 MR#: [id number] Acct: [id number] Name: ELIS BILLS Rep #:[id number] : 1960 64 From: Armani ordoñez DO [...] is a 64-year-old male who presented to [facility] ED on 02/26/2025 with altered mentation. 1. Acute hypoxic respiratory failure due to aspiration pneumonia versus pneumonitis and mild HFpEF exacerbation ? Water Operator and ID following. Not on home oxygen. Present with cough, feversto 103F and leukocytosis. CT chest showed right lower lobe consolidative airspace disease concerning for aspiration pneumonia. 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 Charges/Coding Visit Charges Inpatient E&M: 50465 Subs Hosp L2 03/02/25 1451 <Electronically signed by Armani Tolbert DO> Cosigner Signature (if applicable): CC: ~ Signed [facility] Work Phone: 1(210) 356-222008-15-2025 Progress note [facility] Medical Records Department [address] [place] [address] Progress Note - Hospitalist 03/02/25 1058 MR#: [id number] Acct: [id number] Name: ELIS BILLS Rep #:[id number] : 1960 64 From: Armani ordoñez DO [...] is a 64-year-old male who presented to [facility] ED on 02/26/2025 with altered mentation. 1. Acute hypoxic respiratory failure due to aspiration pneumonia versus pneumonitis and mild HFpEF exacerbation ? Water Operator and ID following. Not on home oxygen. Present with cough, feversto 103F and leukocytosis. CT chest showed right lower lobe consolidative airspace disease concerning for aspiration pneumonia. 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 Charges/Coding Visit Charges Inpatient E&M: 45258 Subs Hosp L2 03/02/25 1451 Cosigner Signature (if applicable): CC: ~ Signed [facility]08-15-2025 Progress note Author Pilar Gannon [facility] Note Date/Time March 02, 2025 12 :44pm [facility] Medical Records Department [address] [place] [address] Progress Note - Infect Disease 03/02/25 1243 MR#: [id number] Acct: [id number] Name: ELIS BILLS Rep #:[id number] : 1960 64 From: Pilar villavicencio MD [...] Cosigner Signature (if applicable): CC: ~ Signed [facility] Work Phone: 1(377) 189-236908-15-2025 Procedure note [facility] Speech Pathology [address] [place] [address] Modified Barium Swallow Study MR#: [id number] Acct: [id number] Name: ELIS BILLS Rep #:[id number] : 1960 64 From: Kip Beaulieu, [facility]-MEDICAL OFFICE ASST Modified Barium Swallow Patient Information Study Date: [...] lumbar region (without claudication).? Patient presented to [facility] ED 02/27/2025 w/ AMS. Per , pt [...] worsened 03/01/2025 and he was made strictNPO. MEDICAL OFFICE ASST re-assessed pt at bedside today and recommended [...] cup: Result: 2= enter airway/above vocal folds/ejected [place] Thick Liquid via sequential sips: cup: Result: [...] MBS Impressions: Keith CHAUDHARY, present for MBSS. MEDICAL OFFICE ASST could not definitively rule out aspiration for any of the above mentioned trials due to pt's body habitus. Additionally, MEDICAL OFFICE ASST was unable to score UES opening/duration or [...] Oncechewing stopped, SpO2 returned to mid 90s. NEENA, Keith, and MEDICAL OFFICE ASST suspect desaturation secondary to exertion of chewing. [...] via cup and soft solids w/ treating MEDICAL OFFICE ASST to consider the patient for further diet advancement. Treating MEDICAL OFFICE ASST is ok to adv ancethe patient at [...] further education on strategies & risks. Comment: MEDICAL OFFICE ASST educated pt, RN, and MEMBER CERTIFICATION MANAGER in results and recommendations of the MBSS and posted recommendations in the patient's room. MEDICAL OFFICE ASST asked RNKip, to please make the patient NPO is worsening respiratory status after diet has been initiated. Status Active ST Patient: Active Contact Information [facility] Speech Therapy:: Kip Rodriguez M.A. CCC-MEDICAL OFFICE ASST? Speech-Language Pathologist?? [facility] [address] [place] [address]? [email or web address]?? [phone] 03/02/25 Ron6 GAY Oneill-MEDICAL OFFICE ASST> Date/Time Kip Rodriguez M.A. CCC-MEDICAL OFFICE ASST Co-Signature Required for all Medicare patients Date/Time Co-Signature CC: ~ [facility]08-15-2025 Progress note [facility] Medical Records Department [address] [place] [address] Progress Note - Infect Disease 03/02/25 1243 MR#: [id number] Acct: [id number] Name: ELIS BILLS Rep #:[id number] : 1960 64 From: Pilar villavicencio MD [...] Cosigner Signature (if applicable): CC: ~ Signed [facility]08-15-2025 Progress note Author Gamal Calero [facility] Note Date/Time March 02, 2025 9: 38[facility] Department [address] [place] [address] Progress Note - Water Operator 03/02/25 0853 MR#: [id number] Acct: [id number] Name: ELIS BILLS Rep #:[id number] : 1960 64 From: Gamal Calero MD [...] 02/26/25 20:48 thru 03/02/25 06:09 Intake Total 45976.20 Output Total 4203 Balance 6735.20 Current Meds [...] mls @ 15 mls/hr 02/27/25 02:04 IV .[id number] PRN Saline Flush Sodium Chloride 250 mls @ 15 mls/hr 02/27/25 02:04 IV .[id number] PRN Additional IVPB Infusion Metronidazole 500 mg [...] Cosigner Signature (if applicable): CC: ~ Signed [facility] Work Phone: 1(371) 831-226108-15-2025 Progress note [facility] Medical Records Department [address] [place] [address] Progress Note - Water Operator 03/02/25 0853 MR#: [id number] Acct: [id number] Name: ELIS BILLS Rep #:[id number] : 1960 64 From: Gamal Calero MD [...] 02/26/25 20:48 thru 03/02/25 06:09 Intake Total 75151.20 Output Total 4203 Balance 6735.20 Current Meds [...] mls @ 15 mls/hr 02/27/25 02:04 IV .[id number] PRN Saline Flush Sodium Chloride 250 mls @ 15 mls/hr 02/27/25 02:04 IV .[id number] PRN Additional IVPB Infusion Metronidazole 500 mg [...] Cosigner Signature (if applicable): CC: ~ Signed [facility]08-15-2025 Consult note Author Moo Baird [facility] Note Date/Time March 02, 2025 2: 22am [facility] Medical Records Department [address] [place] [address] Pharmacokinetic/Renal -Consult 03/02/25 0220 MR#: [id number] Acct: [id number] Name: ELIS BILLS Rep #:[id number] : 1960 64 From: Moo Baird PCP: [...] by Moo funes> Date _ Moo Baird Cosigner Signature (if applicable): Date CC: ~ Signed [facility] Work Phone: 1(566) 228-743808-15-2025 Consult note [facility] Medical Records Department [address] [place] [address] Pharmacokinetic/Renal -Consult 03/02/25219 MR#: [id number] Acct: [id number] Name: ELIS BILLS Rep #:[id number] : 1960 64 From: Moo Baird PCP: [...] (random) 03/02/25 0222 ds> Date _ Moo Youngblood Signature (if applicable): Date CC: ~ Signed [facility]08-14-2025 Progress note Author Armani Tolbert [facility] Note Date/Time March 01, 2025 2: 31pm [facility] Medical Records Department [address] [place] [address] Progress Note - Hospitalist 03/01/25 1152 MR#: [id number] Acct: [id number] Name: ELIS BILLS Rep #:[id number] : 1960 64 From: Armani ordoñez DO [...] 82.5 H, Lymph % (Auto) 8.4 L, Young % (Auto) 7.3, Eos % (Auto) 0.2, [...] to significant respiratory motion artifact. Reading Location: [id number] Chest X-Ray 03/01/25 04:10 IMPRESSION: Suspect interval worsening in right mid and lower lung zone airspace disease. Reading Location: [place] [address] Physical Exam Const alert and no apparent [...] is a 64-year-old male who presented to [facility] ED on 02/26/2025 with altered mentation. 1. Acute hypoxic respiratory failure due to aspiration pneumonia versus pneumonitis and mild HFpEF exacerbation ? Water Operator and ID following. Not on home oxygen. Present with cough, feversto 103F and leukocytosis. CT chest showed right lower lobe consolidative airspace disease concerning for aspiration pneumonia. 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 3. Acute encephalopathy ? Water Operator following as above. Suspect multifactorial due to [...] 35 minutes. Charges/Coding Visit Charges Inpatient E&M: 10417 Subs Hosp L2 03/01/25 1431 <Electronically signed by Armani Tolbert DO> Cosigner Signature (if applicable): CC: ~ Signed [facility] Work Phone: 1(965) 608-218708-14-2025 Progress note [facility] Medical Records Department [address] [place] [address] Progress Note - Hospitalist 03/01/25 1152 MR#: [id number] Acct: [id number] Name: ELIS BILLS Rep #:[id number] : 1960 64 From: Armani ordoñez DO [...] Std Deviation 49.4 H, RDW Coeff of Carols 14.6, Plt Count TNP, MPV 10.7, Immature Gran % (Auto) 0.800, Neut % (Auto) 82.5 H, Lymph % (Auto) 8.4 L, Young % (Auto) 7.3, Eos % (Auto) 0.2, [...] to significant respiratory motion artifact. Reading Location: [id number] Chest X-Ray 03/01/25 04:10 IMPRESSION: Suspect interval worsening in right mid and lower lung zone airspace disease. Reading Location: [place] [address] Physical Exam Const alert and no apparent [...] is a 64-year-old male who presented to [facility] ED on 02/26/2025 with altered mentation. 1. Acute hypoxic respiratory failure due to aspiration pneumonia versus pneumonitis and mild HFpEF exacerbation ? Water Operator and ID following. Not on home oxygen. Present with cough, feversto 103F and leukocytosis. CT chest showed right lower lobe consolidative airspace disease concerning for aspiration pneumonia. 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 3. Acute encephalopathy ? Water Operator following as above. Suspect multifactorial due to [...] 35 minutes. Charges/Coding Visit Charges Inpatient E&M: 56440 Subs Hosp L2 03/01/25 1431 Cosigner Signature (if applicable): CC: ~ Signed [facility]08-14-2025 Consult note Author Pilar Gannon [facility] Note Date/Time March 01, 2025 10 :49am [facility] Medical Records Department [address] [place] [address] Consultation - Infectious Dx 03/01/25 1045 MR#: [id number] Acct: [id number] Name: ELIS BILLS Rep #:[id number] : 1960 64 From: Pilar villavicencio MD PCP: Anna Sandres PA-C Status:ADM IN Location: ICU ICU01-1 Assessment [...] h/o etoh abuse, obesity, COPD presented to [facility] 02/25 with 2 days confusion, fall at home. Had some pain in knee per 's report in ED. Admitted to icu, now on vanc/cefepime/flagyl/doxy and iv steroids. Still with high fevers. Per nursing, when precedex is weaned, he is awake, talking, interactive, able to move head/neck. Full ROS limited due to to mental status. [facility] Medical History Hyperlipemia Hypertension GERD (gastroesophageal reflux [...] 82.5 H, Lymph % (Auto) 8.4 L, Young % (Auto) 7.3, Eos % (Auto) 0.2, [...] to significant respiratory motion artifact. Reading Location: [id number] Chest X-Ray 03/01/25 04:10 IMPRESSION: Suspect interval worsening in right mid and lower lung zone airspace disease. Reading Location: [facility]- 03/01/25 1049 <Electronically signed by Pilar Gannon MD> Cosigner Signature (if applicable): CC: STEVE Sanders~ Signed [facility] Work Phone: 1(167) 356-901608-14-2025 Progress note Author Gamal Calero [facility] Note Date/Time March 01, 2025 9: 53[facility] Medical Records Department [address] [place] [address] Progress Note - Water Operator 03/01/2503 MR#: [id number] Acct: [id number] Name: ELIS BILLS Rep #:[id number] : 1960 64 From: Gamal Calero MD [...] mls @ 15 mls/hr 02/27/25 02:04 IV .[id number] PRN Saline Flush Sodium Chloride 250 mls @ 15 mls/hr 02/27/25 02:04 IV .[id number] PRN Additional IVPB Infusion Metronidazole 500 mg [...] Vancomycin Trough/Random Due MC 03/02/25 02:30 DAILY [facility] Lab / Micro Data 03/01/25 04:36 03/01/25 [...] 82.5 H, Lymph % (Auto) 8.4 L, Young % (Auto) 7.3, Eos % (Auto) 0.2, [...] to insufficient tricuspid regurgitant envelope. Ordering Physician: Gmaal Calero Performed By: Mukesh Mejias, FRANCISCO J Chest CTA 02/28/25 18:28 IMPRESSION: 1. Right lower lobar pneumonia, substantially increased from prior exam. 2. Associated small right parapneumonic pleural effusion. 3. Presumed reactive right hilar and mediastinal lymphadenopathy. 4. No central pulmonary arterial emboli. Segmental-subsegmental branches are not adequately evaluated on this exam due to significant respiratory motion artifact. Reading Location: [id number] Chest X-Ray 03/01/25 04:10 IMPRESSION: Suspect interval worsening in right mid and lower lung zone airspace disease. Reading Location: [place] [address] Assessment and Plan . Assessment and plan: [...] to the patient's mental status. 03/01/25 0953 <Electronically signed by Gamal Calero MD> Cosigner Signature (if applicable): CC: ~ Signed [facility] Work Phone: 1(968) 255-230408-14-2025 Consult note [facility] Medical Records Department [address] [place] [address] Consultation - Infectious Dx 03/01/25 1045 MR#: [id number] Acct: [id number] Name: ELIS BILLS Rep #:[id number] : 1960 64 From: Pilar villavicencio MD [...] h/o etoh abuse, obesity, COPD presented to [facility] 02/25 with 2 days confusion, fall at home. Had some pain in knee per 's report in ED. Admitted to icu, now on vanc/cefepime/flagyl/doxy and iv steroids. Still with high fevers. Per nursing, when precedex is weaned, he is awake, talking, interactive, able to move head/neck. Full ROS limited due to to mental status. [facility] Medical History Hyperlipemia Hypertension GERD (gastroesophageal reflux [...] 82.5 H, Lymph % (Auto) 8.4 L, Young % (Auto) 7.3, Eos % (Auto) 0.2, [...] to significant respiratory motion artifact. Reading Location: [id number] Chest X-Ray 03/01/25 04:10 IMPRESSION: Suspect interval worsening in right mid and lower lung zone airspace disease. Reading Location: [place] [address] 03/01/25 1049 Cosigner Signature (if applicable): CC: STEVE Sanders~ Signed [facility]08-14-2025 Progress note [facility] Medical Records Department [address] [place] [address] Progress Note - Water Operator 03/01/25 09 MR#: [id number] Acct: [id number] Name: ELIS BILLS Rep #:[id number] : 1960 64 From: Gamal Calero MD [...] mls @ 15 mls/hr 02/27/25 02:04 IV .[id number] PRN Saline Flush Sodium Chloride 250 mls @ 15 mls/hr 02/27/25 02:04 IV .[id number] PRN Additional IVPB Infusion Metronidazole 500 mg [...] Vancomycin Trough/Random Due MC 03/02/25 02:30 DAILY GABBY Lab / Micro Data 03/01/25 04:36 03/01/25 [...] 82.5 H, Lymph % (Auto) 8.4 L, Young % (Auto) 7.3, Eos % (Auto) 0.2, [...] to significant respiratory motion artifact. Reading Location: [id number] Chest X-Ray 03/01/25 04:10 IMPRESSION: Suspect interval worsening in right mid and lower lung zone airspace disease. Reading Location: [place] [address] Assessment and Plan . Assessment and plan: [...] Cosigner Signature (if applicable): CC: ~ Signed [facility]08-14-2025 Radiology Diagnostic study note [facility] Imaging Services [address] [place] [address] Chest 1 View (Portable) MR#: [id number] Acct: [id number] Name: ELIS BILLS Rep #: [id number] : 1960 M 64 From: aKte Arellano MD PCP: Anna Sanders PA-C Status: ADM IN Study:Chest 1 View (Portable) Date of Exam: 03/01/25 Exam# [id number] Ordering Dr: Mechelle Ramirez DO PROCEDURE: CHEST [...] lower lung zone airspace disease. Reading Location: [facility] CC: STEVE Sanders; Dr. Mechelle Maya, DO ~ Financial Aid Administrator: Signed [facility]08-13-2025 Progress note Author Maira eYh [facility] Note Date/Time February 28, 2025 6: 29pm [facility] Medical Records Department [address] [place] [address] Progress Note 02/28/25 1523 MR#: [id number] Acct: [id number] Name: ELIS BILLS Rep #:[id number] : 1960 64 From: Maira Yeh MD [...] 84.3 H, Lymph % (Auto) 5.2 L, Young % (Auto) 9.2, Eos % (Auto) 0.0, [...] 81.8 H, Lymph % (Auto) 7.6 L, Young % (Auto) 8.8, Eos % (Auto) 0.5, [...] in the appropriate clinical setting. Reading Location: [facility] Chest X-Ray 02/28/25 03:00 IMPRESSION: Persistent right medial basal airspace disease, possible pneumonia. Reading Location: [place] [address] Physical Exam Const alert Constitutional Narrative: lethargic, [...] but transferred back to the ICU in [facility] early hours of this morning due to [...] prophylaxis: lovenox Charges/Coding Visit Charges Inpatient E&M: 96826 Subs Hosp L3 02/28/251752 <Electronically signed by Maira Yeh MD> Maira Yeh MD Cosigner Signature (if applicable): CC: ~ Signed ADDENDUM by Dr. Maira Yeh MD on 02/28/25 at 182 Addendum D-dimer markedly elevated at 2.78. Will therefore order a CTA of the chest statto rule out a PE 02/28/251828 <Electronically signed by Maira saunders MD> Date _ Maira Yeh MD Cosigner Signature (if applicable): Date cc: ~* Signed [facility] Work Phone: 1(711) 139-485008-13-2025 Radiology Diagnostic study note [facility] Imaging Services [address] [place] [address] CTA Chest W/WO Contrast MR#: [id number] Acct: [id number] Name: ELIS BILLS Rep #: [id number] : 1960 M 64 From: Cruz Nicole MD PCP: Anna Sanders PA-C Status: ADM IN Study:CTA Chest W/WO Contrast Date of Exam: 02/28/25 Exam# [id number] Ordering Dr: Nimisha Yeh MD PROCEDURE: CTA [...] to significant respiratory motion artifact. Reading Location: [id number] CC: STEVE Sanders; Dr. Maira Yeh MD ~ Financial Aid Administrator: Signed [facility]08-13-2025 Consult note Author Gamal Calero [facility] Note Date/Time February 28, 2025 6: 21pm [facility] Medical Records Department [address] [place] [address] Consultation - Water Operator 02/28/25 1415 MR#: [id number] Acct: [id number] Name: ELIS BILLS Rep #:[id number] : 1960 64 From: Gamal Calero MD [...] withdrawal. ROS: Unable to obtain d/t AMS [facility] Medical History Hyperlipemia Hypertension GERD (gastroesophageal reflux [...] mls @ 15 mls/hr 02/27/25 02:04 IV .[id number] PRN Saline Flush Sodium Chloride 250 mls @ 15 mls/hr 02/27/25 02:04 IV .[id number] PRN Additional IVPB Infusion Metronidazole 500 mg [...] Vancomycin Trough/Random Due MC 03/02/25 02:30 DAILY GABBY Lab / Micro Data 02/28/25 03:02 02/28/25 [...] 84.3 H, Lymph % (Auto) 5.2 L, Young % (Auto) 9.2, Eos % (Auto) 0.0, [...] 81.8 H, Lymph % (Auto) 7.6 L, Young % (Auto) 8.8, Eos % (Auto) 0.5, [...] growth. ABG Data ABG results: ABG 02/28/25 02/28/2525 02:54 03:00 10:31 Specimen Type SERGIO ART [...] in the appropriate clinical setting. Reading Location: [id number] Chest X-Ray 02/28/25 03:00 IMPRESSION: Persistent right medial basal airspace disease, possible pneumonia. Reading Location: [place] [address] Assessment and Plan . Assessment and plan: [...] encounter due to the patient's mental status. 02/28/251820 <Electronically signed by Gamal Calero MD> Cosigner Signature (if applicable): CC: STEVE Sanders~ Signed [facility] Work Phone: 1(274) 861-485008-13-2025 Consult note Author Merissa Vaughn [facility] Note Date/Time February 28, 2025 5: 53pm [facility] Medical Records Department [address] [place] [address] Pharmacokinetic/Renal -Consult 02/28/25 1316 MR#: [id number] Acct: [id number] Name: ELIS BILLS Rep #:[id number] : 1960 64 From: Merissa Vaughn PCP: [...] monitor and adjust dosing as required. 02/28/25 1577 <Electronically signed by Merissa Vaughn> Date _ Merissa Vaughn 02/28/25 1753 <Electronically signed by Maira saunders MD> Cosigner Signature (if applicable): Date Maira Yeh MD CC: ~ Signed [facility] Work Phone: 1(827) 406-503508-13-2025 Progress note [facility] Medical Records Department [address] [place] [address] Progress Note 02/28/25 1523 MR#: [id number] Acct: [id number] Name: ELIS BILLS Rep #:[id number] : 1960 64 From: Maira Yeh MD [...] 84.3 H, Lymph % (Auto) 5.2 L, Young % (Auto) 9.2, Eos % (Auto) 0.0, [...] 81.8 H, Lymph % (Auto) 7.6 L, Young % (Auto) 8.8, Eos % (Auto) 0.5, [...] in the appropriate clinical setting. Reading Location: [facility] Chest X-Ray 02/28/25 03:00 IMPRESSION: Persistent right medial basal airspace disease, possible pneumonia. Reading Location: [place] [address] Physical Exam Const alert Constitutional Narrative: lethargic, [...] but transferred back to the ICU in [facility] early hours of this morning due to [...] prophylaxis: lovenox Charges/Coding Visit Charges Inpatient E&M: 35677 Subs Hosp L3 02/28/25 2413 Maira Yeh MD Cosigner Signature (if applicable): CC: ~ Signed ADDENDUM by Dr. Maira Yeh MD on 02/28/25 at 1829 Addendum D-dimer markedly elevated at 2.78. Will therefore order a CTA of the chest statto rule out a PE 02/28/25 1829 m MD> Date _ Maira Yeh MD Cosigner Signature (if applicable): Date cc: ~* Signed [facility]08-13-2025 Consult note [facility] Medical Records Department [address] [place] [address] Consultation - Water Operator 02/28/25 1415 MR#: [id number] Acct: [id number] Name: ELIS BILLS Rep #:[id number] : 1960 64 From: Gamal Calero MD [...] withdrawal. ROS: Unable to obtain d/t AMS [facility] Medical History Hyperlipemia Hypertension GERD (gastroesophageal reflux [...] mls @ 15 mls/hr 02/27/25 02:04 IV .[id number] PRN Saline Flush Sodium Chloride 250 mls @ 15 mls/hr 02/27/25 02:04 IV .[id number] PRN Additional IVPB Infusion Metronidazole 500 mg [...] Vancomycin Trough/Random Due MC 03/02/25 02:30 DAILY GABBY Lab / Micro Data 02/28/25 03:02 02/28/25 [...] 84.3 H, Lymph % (Auto) 5.2 L, Young % (Auto) 9.2, Eos % (Auto) 0.0, [...] 81.8 H, Lymph % (Auto) 7.6 L, Young % (Auto) 8.8, Eos % (Auto) 0.5, [...] in the appropriate clinical setting. Reading Location: [id number] Chest X-Ray 02/28/25 03:00 IMPRESSION: Persistent right medial basal airspace disease, possible pneumonia. Reading [facility] Assessment and Plan . Assessment and plan: [...] Signature (if applicable): CC: STEVE Sanders~ Signed [facility]08-13-2025 Consult note [facility] Medical Records Department [address] [place] [address] Pharmacokinetic/Renal -Consult 02/28/25 1316 MR#: [id number] Acct: [id number] Name: ELIS BILLS Rep #:[id number] : 1960 64 From: Merissa Vaughn PCP: [...] _ Merissa Vaughn 02/28/25 1753 m > Cosigner Signature (if applicable): Date Maira Yeh MD CC: ~ Signed [facility]08-13-2025 Progress note Author Mechelle Guerra [facility] Note Date/Time February 28, 2025 5: 34am [facility] Medical Records Department [address] [place] [address] Progress Note - Hospitalist 02/28/25 0317 MR#: [id number] Acct: [id number] Name: SANJUELIS J Rep #:[id number] : 1960 64 From: Mechelle Slade DO PCP: Anna Sandesr PA-C Status:ADM IN Location: ICU ICU01-1 Hospitalist Note I was contacted by LAB ANIMAL TECHNOLOGIST ~2:30 AM and informed the patient spiked [...] the AM with help appreciated in advance. [facility] Imaging Services [address] [place] [address] Chest 1 View (Portable) MR#: [id number] Acct: [id number] Name: ELIS BILLS Rep #: [id number] : 1960 M 64 From: Willy Arellano MD PCP: Anna Sanders PA-C Status: ADM IN Study: Chest 1 View (Portable) Date of Exam: 02/28/25 Exam# [id number] Ordering Dr: Mechelle Maya DO PROCEDURE: CHEST [...] STEVE Sanders; Dr. Mechelle Maya DO ~ Financial Aid Administrator: Signed 02/28/25 0912 <Electronically signed by Mechelle Maya DO> Cosigner Signature (if applicable): CC: ~ Signed [facility] Work Phone: 1(698) 845-123908-13-2025 Progress note [facility] Medical Records Department [address] [place] [address] Progress Note - Hospitalist 02/28/25 0317 MR#: [id number] Acct: [id number] Name: ELIS BILLS Rep #:[id number] : 1960 64 From: Mechelle Slade DO PCP: Anna Sanders PA-C Status:ADM IN Location: ICU ICU01-1 Hospitalist Note I was contacted by LAB ANIMAL TECHNOLOGIST ~2:30 AM and informed the patient spiked [...] the AM with help appreciated in advance. [facility] Imaging Services [address] [place] [address] Chest 1 View (Portable) MR#: [id number] Acct: [id number] Name: ELIS BILLS Rep #: [id number] : 1960 M 64 From: Willy Arellano MD PCP: Anna Sanders PA-C Status: ADM IN Study: Chest 1 View (Portable) Date of Exam: 02/28/25 Exam# [id number] Ordering Dr: Mechelle Maya DO PROCEDURE: CHEST [...] STEVE Sanders; Dr. Mechelle Maya DO ~ Financial Aid Administrator: Signed 02/28/25 0534 Cosigner Signature (if applicable): CC: ~ Signed [facility]08-13-2025 Radiology Diagnostic study note [facility] Imaging Services [address] [place] [address] Chest 1 View (Portable) MR#: [id number] Acct: [id number] Name: ELIS BILLS Rep #: [id number] : 1960 M 64 From: Kate Arellano MD PCP: Anna Sanders PA-C Status: ADM IN Study:Chest 1 View (Portable) Date of Exam: 02/28/25 Exam# [id number] Ordering Dr: Mechelle Ramirez DO PROCEDURE: CHEST 1 VIEW (PORTABLE) 02/28/2025 REASON FOR EXAM: TACHYPNEA TECHNIQUE: Frontal view of the chest. COMPARISON: 02/26/2025 FINDINGS: Lordotic position. Normal heart size. Prominent left-sided fat pad. Persistent right medial basilaropacity possible consolidation. No effusion or pneumothorax. RAD/Chest 1 View (Portable) IMPRESSION: Persistent right medial basal airspace disease, possible pneumonia. Reading Location: [facility] CC: STEVE Sanders; Dr. Mechelle Maya DO ~ Financial Aid Administrator: Signed [facility]08-12-2025 Progress note Author Maira Pennyberenice [facility] Note Date/Time February 27, 2025 4: 21pm [facility] Medical Records Department [address] [place] [address] Progress Note 02/27/25 1602 MR#: [id number] Acct: [id number] Name: ELIS BILLS Rep #:[id number] : 1960 64 From: Maira Yeh MD PCP: Anna Sanders PA-C Status:ADM IN Location: [place] [address]- 1 Subjective Subjective Patient seen and examined. He [...] Clarity Clear, Urine pH 6.0, Ur Specific [place] 1.020, Urine Protein 100 H, Urine Glucose [...] 87.3 H, Lymph % (Auto) 3.9 L, Young % (Auto) 7.3, Eos % (Auto) 0.3, [...] evaluation with MRI is recommended. Reading Location: [facility] Cervical Spine CT 02/26/25 21:30 IMPRESSION: No acute fracture. Reading Location: [facility] Knee X-Ray 02/26/25 21:45 IMPRESSION: Degenerative changes as above. Reading Location: [facility] Chest X-Ray 02/26/25 21:47 IMPRESSION: Cardiomegaly with mild congestion. Reading Location: [facility] Abdomen/Pelvis CT 02/27/25 01:35 IMPRESSION: No acute abdominopelvic findings. Refer to chest CT report for additional detail. Reading [facility] 02/27/25 01:35 IMPRESSION: Right lower lobe pneumonia. Reading Location: [facility] Physical Exam Const alert and oriented x3 [...] to PCU. Charges/Coding Visit Charges Inpatient E&M: 95324 Subs Hosp L2 02/27/25 1621 <Electronically signed by Maira Yeh MD> Maira Yeh MD Cosigner Signature (if applicable): CC: ~ Signed [facility] Work Phone: 1(559) 252-123308-12-2025 Progress note [facility] Medical Records Department [address] [place] [address] Progress Note 02/27/25 1602 MR#: [id number] Acct: [id number] Name: ELIS BILLS Rep #:[id number] : 1960 64 From: Maira Yeh MD PCP: Anna Petruzzi, PA-C Status:ADM IN Location: [facility] ZUE607- 1 Subjective Subjective Patient seen and examined. He [...] Clarity Clear, Urine pH 6.0, Ur Specific [place] 1.020, Urine Protein 100 H, Urine Glucose [...] 87.3 H, Lymph % (Auto) 3.9 L, Young % (Auto) 7.3, Eos % (Auto) 0.3, [...] Vitamin B12 229, TSH 1.110 Micro: Microbiology 08/12/25 03:45 Mucosa - Nasopharyngeal Respiratory Panel (PCR) [...] evaluation with MRI is recommended. Reading Location: [facility] Cervical Spine CT 02/26/25 21:30 IMPRESSION: No acute fracture. Reading Location: [facility] Knee X-Ray 02/26/25 21:45 IMPRESSION: Degenerative changes as above. Reading Location: [facility] Chest X-Ray 02/26/25 21:47 IMPRESSION: Cardiomegaly with mild congestion. Reading Location: [facility] Abdomen/Pelvis CT 02/27/25 01:35 IMPRESSION: No acute abdominopelvic findings. Refer to chest CT report for additional detail. Reading Location: [facility] 02/27/25 01:35 IMPRESSION: Right lower lobe pneumonia. Reading Location: [facility] Physical Exam Const alert and oriented x3 [...] to PCU. Charges/Coding Visit Charges Inpatient E&M: 27978 Subs Hosp L2 02/27/25 1621 Maira Yeh MD Cosigner Signature (if applicable): CC: ~ Signed [facility]08-12-2025 Radiology Diagnostic study note [facility] Imaging Services [address] [place] [address] Chest without Contrast MR#: [id number] Acct: [id number] Name: ELIS BILLS Rep #: [id number] : 1960 M 64 From: Kate Arellano MD PCP: Anna Sanders PA-C Status: ADM IN Study:Chest without Contrast Date of Exam: 02/27/25 Exam# [id number] Ordering Dr: Malou Perez DO PROCEDURE: CHEST WITHOUT CONTRAST 02/27/2025 [...] IMPRESSION: Right lower lobe pneumonia. Reading Location: [place] [address] CC: STEVE Sanders; Dr. Austin Perez, ~ Financial Aid Administrator: Signed [facility]08-12-2025 History and physical note Author Mechelle Guerra [facility] Note Date/Time February 27, 2025 6: 46am [facility] Medical Records Department [address] [place] [address] H&P Exam - Hospitalist 02/27/25 0001 MR#: [id number] Acct: [id number] Name: ELIS BILLS Rep #:[id number] : 1960 64 From: Mechelle Slade DO [...] lumbar region (without claudication) who presents to [facility] ER complaining of altered mental status. [...] is expected to extend beyond 2 midnights. [facility] Medical History Hyperlipemia Hypertension GERD (gastroesophageal reflux [...] Clarity Clear, Urine pH 6.0, Ur Specific [place] 1.020, Urine Protein 100 H, Urine Glucose [...] 87.3 H, Lymph % (Auto) 3.9 L, Young % (Auto) 7.3, Eos % (Auto) 0.3, [...] evaluation with MRI is recommended. Reading Location: [facility] Cervical Spine CT 02/26/25 21:30 IMPRESSION: No acute fracture. Reading Location: [facility] Knee X-Ray 02/26/25 21:45 IMPRESSION: Degenerative changes as above. Reading Location: [id number] Chest X-Ray 02/26/25 21:47 IMPRESSION: Cardiomegaly with mild congestion. Reading Location: [facility] Imaging Services [address] [place] [id number] Chest without Contrast MR#: [id number] Acct: [id number] Name: ELIS BILLS Rep #: [id number] : 1960 M 64 From: Willy Arellano MD PCP: Anna Sanders PA-C Status: ADM IN Study: Chest without Contrast Date of Exam: 02/27/25 Exam# [id number] Ordering Dr: Austin ePrez DO PROCEDURE: CHEST WITHOUT CONTRAST 02/27/2025 REASON [...] IMPRESSION: Right lower lobe pneumonia. Reading Location: [place] [address] CC: STEVE Sanders; Dr. Austin Perez, DO ~ Financial Aid Administrator: Signed Assessment & Plan Assessment/Plan (1) Sepsis: [...] #1 & #2 - We will minimize EXPLOSIVE ORDNANCE SPECIALIST-active medications in an effort to allow sensorium [...] responsive hypotension Charges/Coding Visit Charges Inpatient E&M: 42918 Init Hosp L3 02/27/25 0646 <Electronically signed by Mechelle Maya DO> Cosigner Signature (if applicable): CC: STEVE Sanders; Dr. Mechelle Maya DO~ Signed [facility] Work Phone: 1(455) 570-873108-12-2025 History and physical note [facility] Medical Records Department [address] [facility] [place] [address] H&P Exam - Hospitalist 02/27/25 0001 MR#: [id number] Acct: [id number] Name: ELIS BILLS Rep #:[id number] : 1960 64 From: Mechelle Slade DO [...] lumbar region (without claudication) who presents to [facility] ER complaining of altered mental status.Mr. [...] is expected to extend beyond 2 midnights. [facility] Medical History Hyperlipemia Hypertension GERD (gastroesophageal reflux [...] Clarity Clear, Urine pH 6.0, Ur Specific [place] 1.020, Urine Protein 100 H, Urine Glucose [...] 87.3 H, Lymph % (Auto) 3.9 L, Young % (Auto) 7.3, Eos % (Auto) 0.3, [...] evaluation with MRI is recommended. Reading Location: [facility] Cervical Spine CT 02/26/25 21:30 IMPRESSION: No acute fracture. Reading Location: [facility] Knee X-Ray 02/26/25 21:45 IMPRESSION: Degenerative changes as above. Reading Location: [facility] Chest X-Ray 02/26/25 21:47 IMPRESSION: Cardiomegaly with mild congestion. Reading Location: [facility] Imaging Services [address] [place] [address] Chest without Contrast MR#: [id number] Acct: [id number] Name: ELIS BILLS Rep #: [id number] : 1960 M 64 From: Willy Arellano MD PCP: Anna Sanders PA-C Status: ADM IN Study: Chest without Contrast Date of Exam: 02/27/25 Exam# [id number] Ordering Dr: Austin Perez DO PROCEDURE: CHEST [...] IMPRESSION: Right lower lobe pneumonia. Reading Location: [place] [address] CC: STEVE Sanders; Dr. Austin Perez DO ~ Financial Aid Administrator: Signed Assessment & Plan Assessment/Plan (1) Sepsis: [...] #1 & #2 - We will minimize EXPLOSIVE ORDNANCE SPECIALIST-active medications in an effort to allow sensorium [...] responsive hypotension Charges/Coding Visit Charges Inpatient E&M: 79431 Init Hosp L3 02/27/25 0646 Cosigner Signature (if applicable): CC: STEVE Sanders; [facility] Consult note Author Dhiraj Villarreal [facility] Note Date/Time February 27, 2025 3: 36am [facility] Medical Records Department [address] [place] [address] Pharmacokinetic/Renal -Consult 02/27/25 0335 MR#: [id number] Acct: [id number] Name: ELIS BILLS Rep #:[id number] : 1960 64 From: Dhiraj Yun od [...] signed by Dhiraj brewster> Date _ Dhiraj Youngblood Signature (if applicable): Date __ CC: ~ Signed [facility] Work Phone: 1(766) 728-494308-12-2025 Consult note [facility] Medical Records Department [address] [place] [address] Pharmacokinetic/Renal -Consult 02/27/25334 MR#: [id number] Acct: [id number] Name: ELIS BILLS Rep #:[id number] : 1960 64 From: Dhiraj Yun od [...] 1200 02/27/25 0336 lood> Date _ Dhiraj Youngblood Signature (if applicable): Date __ CC: ~ [facility]08-12-2025 Evaluation note* Diagnosis Onset Date Resolution Status Admit Date Acute hypoxic respiratory failure acute February 27 12:37am Acute metabolic encephalopathy acute February 27, 2025 12:37am Altered mental status acute Feb 12:37am Aspiration pneumonia acute 2024 12:37am Fever acute February 27, 2 025 12:37am Hyponatremia acute February 27, 2025 12:37am Leukocytosis acute February 27, 2025 12:37am Obesity (BMI 30-39.9) acute Feb 12:37am Sepsis acute February 27, 2 025 12:37am Tobacco abuse acute February 12:37am Alcohol abuse chronic February 12:37am [facility] Work Phone: 1(560) 969-965608-12-2025 Discharge summary Author Austin Perez [facility] Note Date/Time February 27, 2025 12 :07am [facility] Medical Records Department [address] [place] [address] Emergency Department Summary 02/26/25 MR#: [id number] Acct: [id number] Name: ELIS BILLS Rep #:[id number] : 1960 64 From: Austin Perez DO [...] management. They deny any blood thinning medications [facility] Medical History Hyperlipemia Hypertension GERD (gastroesophageal reflux [...] 87.3 H Lymph % (Auto) 3.9 L Young % (Auto) 7.3 Eos % (Auto) 0.3 [...] Clarity Clear Urine pH 6.0 Ur Specific [place] 1.020 Urine Protein 100 H Urine Glucose [...] evaluation with MRI is recommended. Reading Location: [facility] Cervical Spine CT 02/26/25 21:30 IMPRESSION: No acute fracture. Reading Location: [facility] Knee X-Ray 02/26/25 21:45 IMPRESSION: Degenerative changes as above. Reading Location: [facility] Chest X-Ray 02/26/25 21:47 IMPRESSION: Cardiomegaly with mild congestion. Reading Location: [facility] Discharge Plan Triage Chief Complaint: Alt [...] Pilar Lanza DO [Non-Staff] - Print Language: Beninese Disposition Disposition: Acute Care Hospital [facility] What to do if you have Problems For any increased pain, shortness of breath, bleeding, nausea or vomiting, chestpain, or any unexpected problems, contact your Primary Care Provider. Call [facility] ([phone]) or report to the closest Emergency Room. Call 911 if necessary. 02/27/256 <Electronically signed by Austin Perez DO> Cosigner Signature (if applicable): CC: STEVE Sanders ~ Signed [facility] Work Phone: 1(652) 911-649708-12-2025 Radiology Diagnostic study note [facility] Imaging Services [address] [place] [id number] Abdomen/Pelvis W IV Cont ONLY MR#: [id number] Acct: [id number] Name: LEIS BILLS Rep #: [id number] : 1960 M 64 From: Kate Arellano MD PCP: Anna Sanders PA-C Status: ADM IN Study:Abdomen/Pelvis W IV Cont ONLY Date of E xam: 02/27/25 Exam# [id number] Ordering Dr: Malou Perez DO PROCEDURE: ABDOMEN/PELVIS W IV CONT [...] CT report for additional detail. Reading Location: [place] [address] CC: STEVE Sanders; Dr. Austin Perez DO ~ Financial Aid Administrator: Signed [facility]08-12-2025 Discharge summary [facility] Medical Records Department [address] [place] [address] Emergency Department Summary 02/26/25 MR#: [id number] Acct: [id number] Name: ELIS BILLS Rep #:[id number] : 1960 64 From: Austin Perez DO [...] management. They deny any blood thinning medications [facility] Medical History Hyperlipemia Hypertension GERD (gastroesophageal reflux [...] and byradiology. Patient was given vancomycin at 2306 and cefepime at 7 as well. At 2307 there is still [...] 87.3 H Lymph % (Auto) 3.9 L Young % (Auto) 7.3 Eos % (Auto) 0.3 [...] Clarity Clear Urine pH 6.0 Ur Specific [place] 1.020 Urine Protein 100 H Urine Glucose [...] evaluation with MRI is recommended. Reading Location: [facility] Cervical Spine CT 02/26/25 21:30 IMPRESSION: No acute fracture. Reading Location: [facility] Knee X-Ray 02/26/25 21:45 IMPRESSION: Degenerative changes as above. Reading Location: [facility] Chest X-Ray 02/26/25 21:47 IMPRESSION: Cardiomegaly with mild congestion. Reading Location: [facility] Discharge Plan Triage Chief Complaint: Alt LOC [...] Pilar Lanza DO [Non-Staff] - Print Language: Beninese Disposition Disposition: Acute Care Hospital [facility] What to do if you have Problems For any increased pain, shortness of breath, bleeding, nausea or vomiting, chestpain, or any unexpected problems, contact your Primary Care Provider. Call [facility] ([phone]) or report tothe closest Emergency Room. Call 911 if necessary. 02/27/256 Cosigner Signature (if applicable): CC: STEVE Sanders ~ Signed [facility]08-11-2025 Radiology Diagnostic study note [facility] Imaging Services [address] [place], [place] [address] Chest PA and Lateral MR#: [id number] Acct: [id number] Name: ELIS BILLS Rep #: [id number] : 1960 M 64 From: Char Roman MD PCP: nAna Sanders PA-C Status: REG ER Study:Chest PA and Lateral Date of Exam: 02/26/25 Exam# [id number] Ordering Dr: Malou Perez DO EXAM: XR Chest, 2 Views CLINICAL INDICATION: AMS TECHNIQUE: Frontal and lateral views of the chest. COMPARISON: No relevant prior studies available. FINDINGS: LUNGS AND PLEURAL SPACES: See below. HEART: Cardiomegaly with mild congestion. MEDIASTINUM: Unremarkable. Normal mediastinal contour. BONES/JOINTS: Unremarkable. No acute fracture. RAD/Chest PA and Lateral IMPRESSION: Cardiomegaly with mild congestion. Reading Location: [facility] CC: STEVE Sanders; Dr. Austin Perez DO ~ Financial Aid Administrator: Signed [facility]08-11-2025 Radiology Diagnostic study note [facility] Imaging Services [address] [place], [place] [id number] Knee 4 or More Views MR#: [id number] Acct: [id number] Name: ELIS BILLS Rep #: [id number] : 1960 M 64 From: Char Roman MD PCP: Anna Sanders PA-C Status: REG ER Study:Knee 4 or More Views Date of Exam: 02/26/25 Exam# [id number] Ordering Dr: Malou Perez DO EXAM: XR Left Knee Complete, 4 or More Views CLINICAL INDICATION: FALL TECHNIQUE: Four or more views of the left knee. COMPARISON: No relevant prior studies available. 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 No acute fracture. No dislocation. SOFT TISSUES: Unremarkable. RAD/Knee 4 or More Views IMPRESSION: Degenerative changes as above. Reading Location: [facility] CC: STEVE Sanders; Dr. Austin Perez DO ~ Financial Aid Administrator: Signed [facility]08-11-2025 Radiology Diagnostic study note [facility] Imaging Services [address] [place], [place] [address] Spine Cervical without Contras MR#: [id number] Acct: [id number] Name: ELIS BILLS Rep #: [id number] : 1960 M 64 From: Char Roman MD PCP: Anna Sanders PA-C Status: REG ER Study:Spine Cervical without Contras Date of Exam: 02/26/25 Exam# [id number] Ordering Dr: Malou Perez DO EXAM: CT Cervical Spine Without [...] Contras IMPRESSION: No acute fracture. Reading Location: [facility] CC: STEVE Sanders; Dr. Austin Perez DO Financial Aid Administrator: Signed [facility]08-11-2025 Radiology Diagnostic study note [facility] Imaging Services [address] [place] [id number] Brain/Head without Contrast MR#: [id number] Acct: [id number] Name: ELIS BILLS Rep #: [id number] : 1960 M 64 From: Char Roman MD PCP: Anna Sanders PA-C Status: REG ER Study:Brain/Head without Contrast Date of Exa m: 02/26/25 Exam# [id number] Ordering Dr: Malou Perez DO EXAM: CT Head Without Intravenous [...] evaluation with MRI is recommended. Reading Location: [facility] CC: STEVE Sanders; Dr. Austin Perez DO ~ Financial Aid Administrator: Signed [facility]08-11-2025 Discharge summary Author Austin Perez [facility] Note Date/Time February 27, 2025 12 :07am [facility] Medical Records Department [address] [place] [address] Emergency Department Summary 02/26/25 MR#: [id number] Acct: [id number] Name: ELIS BILLS Rep #:[id number] : 1960 64 From: Austin Perez DO [...] management. They deny any blood thinning medications [facility] Medical History Hyperlipemia Hypertension GERD (gastroesophageal reflux [...] 87.3 H Lymph % (Auto) 3.9 L Young % (Auto) 7.3 Eos % (Auto) 0.3 [...] Clarity Clear Urine pH 6.0 Ur Specific [place] 1.020 Urine Protein 100 H Urine Glucose [...] evaluation with MRI is recommended. Reading Location: [facility] Cervical Spine CT 02/26/25 21:30 IMPRESSION: No acute fracture. Reading Location: [facility] Knee X-Ray 02/26/25 21:45 IMPRESSION: Degenerative changes as above. Reading Location: [facility] Chest X-Ray 02/26/25 21:47 IMPRESSION: Cardiomegaly with mild congestion. [facility] Triage Chief Complaint: Alt LOC [...] Pilar Lanza DO [Non-Staff] - Print Language: Beninese Disposition Disposition: Acute Care Hospital [facility] What to do if you have Problems For any increased pain, shortness of breath, bleeding, nausea or vomiting, chestpain, or any unexpected problems, contact your Primary Care Provider. Call [facility] ([phone]) or report to the closest Emergency Room. Call 911 if necessary. 02/27/256 <Electronically signed by Austin Perez DO> Cosigner Signature (if applicable): CC: STEVE Sanders ~ Signed [facility] Work Phone: 1(503) 711-738307-17-2025 Telephone encounter Note* Telephone Encounter - Duke Leal - 02/01/2025 3:12 PM EDT Lm on vcml to scheduled PFT [id number] Miscellaneous Notes* Telephone Encounter - Duke Leal - 02/01/2025 3:12 PM EDT Lm on vcml to scheduled PFT * Telephone Encounter - Marco Antonio Rodriguezystle - 02/01/2025 2:34 PM EDT Please contact to reschedule PFT appt. documented in this [id number] Telephone encounter Note* Telephone Encounter - MichaelClemencia - 02/01/2025 2:34 PM EDT Please contact to reschedule PFT appt. 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 Born/raised: [place] Pets: 1 dog Triggers: highlighted if positive [...] - Connective tissue disorders; SLE, Sjogren's, RA, Sherman's - Iritable bowel disease - Malignancy or [...] (CVX=15) 05/26/2017 Influenza, injectable, quadrivalent, preservative free (UVE=376) 06/04/2017, 04/24/2019 Influenza, injectable, trivalent, preservative free (ZLU=683) 06/05/2015, 05/26/2017 Pneumococcal conjugate 13 valent (PCV13) (QWM=944) 06/08/2015, 05/26/2017 Pneumococcal polysaccharide 23 Valent (PPSV23) (CVX=33) 06/04/2017 Tdap (YFQ=538) 06/14/2023 Pended Date(s) Pended Pneumococcal conjugate 20 valent (PCV20), polysaccharide BXO894 conjugate, adjuvant, PF (TKG=700) 01/08/2025 Respiratory syncytial virus (RSV), vaccine, bivalent, protein subunit RSV prefusion F, diluent reconstituted, 0.5 mL, preservative free (DRU=458) 01/08/2025 Outpatient Medications: Current Asthma Medications Sympathomimetics [...] signs of COPD on PFT's completed at [facility] Did not respond well to Dulera when [...] to improve, for in-person visit. Veronica Butt APRN.[facility] Department of Pulmonary [facility] Time-based billing justifications: Reviewing (chart, labs, and other clinical notes) Obtaining history (or reviewing separately obtained history) Patient visit (including performing a medically appropriate exam) Counseling/educating the patient/family/caregiver Ordering (medications, tests, procedures - including independent interpretation of results when notreported separately) Charting in [facility] [1] No past medical history on file. [2] No past surgical history on file. [3] No family history on file. [4] Allergies Allergen Reactions Penicillins Roflumilast Rash * Barak Cerrato MA - 01/08/2025 9:49 AM EDT Patient was identified by name and date of . Barak Cerrato MA .Patient at risk for falls:No Falls Risk protocol implemented: N/A documented in this [id number] Telephone encounter Note* Telephone Encounter - Malena Alejandro RN - 12/25/2024 12:01 PM EDT Neurology Clinical Energy Conservation Representative Note Attempted to call patient. LVM to return call to this RN to schedule a neurology appt for JIN with Dr Flannery. Letter sent SUSY Flood, RN, [facility] Clinical Energy Conservation Representative, Neurology [id number] Miscellaneous Notes* Telephone Encounter - Malena Alejandro RN - 12/25/2024 12:01 PM EDT Neurology Clinical Energy Conservation Representative Note Attempted to call patient. LVM to return call to this RN to schedule a neurology appt for JIN with Dr Flannery. Letter sent SUSY Flood, RN, [facility] Clinical Energy Conservation Representative, Neurology documented in this [id number] Hospital Discharge instructions* Discharge Instructions* Prashanth Heaton [...] Care Everywhere. * Headache Discharge Instructions, Adult (Beninese) * Risk Factors for Stroke (Beninese) documented in this [id number] NotePhysician Triage Note The patient was seen [...] role in this case. PLEASE SEE OTHER ATTENDING/RESIDENT/PHYSICIAN/DERRICK BUILDER/PA NOTATION Elvis Rodriguez MDThe [facility] Physician Emergency department Note* Elvis Rodriguez MD [...] role in this case. PLEASE SEE OTHER ATTENDING/RESIDENT/PHYSICIAN/DERRICK BUILDER/PA NOTATION Elvis Rodriguez MD [facility] Work Phone: [phone]) 263-677405-17-2025 Emergency department Note* Elvis Rodriguez MD - [...] role in this case. PLEASE SEE OTHER ATTENDING/RESIDENT/PHYSICIAN/DERRICK BUILDER/PA NOTATION Elvis Rodriguez MD documented in this [id number] Telephone encounter Note* Telephone Encounter - Brooke Wu RN - 11/24/2024 8:45 AM EDT COPD Care Coordination note: Subjective: I am doing ok Objective: Future Appointments (next 10) Provider Department Center 01/08/2025 10:20 AM (Arrive by 10:10 AM) Veronica Butt APRN-CNP [facility] 01/18/2025 9:40 AM [facility] who reports: Patient reports [...] prescribed Attend all recommended appointments Brooke Wu Frame Stripper [phone] Option 3 [id number] Miscellaneous Notes* Telephone Encounter - Brooke Wu RN - 11/24/2024 8:45 AM EDT COPD Care Coordination note: Subjective: I am doing ok Objective: Future Appointments (next 10) Provider Department Center 01/08/2025 10:20 AM (Arrive by 10:10 AM) Veronica Butt APRN-CNP [facility] 01/18/2025 9:40 AM [facility] Called patient who reports: Patient reports [...] prescribed Attend all recommended appointments Brooke Wu Frame Stripper [phone] Option 3 documented in this [id number] History of Present illness Narrative* Anna Sanders [...] or PCV21) 06/04/2022 COVID-19 Vaccine ( - season) Never done [place] to Medicare Visit (G0402) Never done Hepatitis [...] and date of . documented in this [id number] NoteHNO ID: [id number] Author: VARUN SAHNI PT Service: ? Author Type: Physical Therapist Type: Progress Notes Filed: 11/16/2024 11:41 Note Text: 11/16/2024 [facility] PHYSICAL THERAPY [...] or scheduled additional follow-up appointments. Varun Sahni, [facility]04-16-2025 Telephone encounter Note * Telephone Encounter - Karthik Fried RT - 11/01/2024 8:26 AM EDT Hello, The patient has been referred to the pulmonary rehab program. The pulmonary referral that was placed does not have the measurements from the PFT included within it. On the referral it states Patient's Reference Values: No results found for: [id number]. In order to assess whether or not the patient qualifies, we will need these values filled in on the referral. Please consider ordering PFTs forthe patient so that the updated values can be included in the referral. Based on the current referral, the patient will not be added to the workqueue at this time. Thank you. [id number] Miscellaneous Notes* Telephone Encounter - Karthik Fried RT - 11/01/2024 8:26 AM EDT Hello, The patient has been referred to the pulmonary rehab program. The pulmonary referral that was placed does not have the measurements from the PFT included within it. On the referral it states Patient's Reference Values: No results found for: [id number]. In order to assess whether or not the patient qualifies, we will need these values filled in on the referral. Please consider ordering PFTs forthe patient so that the updated values can be included in the referral. Based on the current referral, the patient will not be added to the workqueue at this time. Thank you. documented in this [id number] NoteTransitional Care Management Contact Initial communication post-discharge: [...] Pharmacy needs: None at this time Reviewed [facility] pharmacy information with patient: No Reviewed follow up appointments/procedures: No Future Appointments (next 10) Provider Department Center 11/17/2024 2:00 PM Anna Sanders PA-C [facility] Medicine [facility] 01/08/2025 10:20 AM (Arrive by 10:10 AM) Veronica Butt APRN-[facility] Pulmonary [facility] Reviewed need for/follow up on diagnostic tests, referrals, and treatment plans:No Community resources identified for patient/family: No Durable medical equipment ordered: No Education provided to patient/caregiver to support self management, ADL's, etc: Take all medications as prescribed Attend all recommended follow up appointments Follow up with Urgent Care/Express Care/ED should symptoms worsen or not improve Interact with other health nonfarm animal caretaker involved in patient care: No Referral to Primary Care Coordination: No Referral to Pan Hernandezet: No Information specific to COPD Companion Caregiver: Has home oxygen: Yes, 2-4 liters Has [...] oxygen unit is being stored SUSY Hammond, inspector health care facilitiesFrame Stripper [phone]20[facility] Telephone encounter Note* Telephone Encounter - Brooke [...] Pharmacy needs: None at this time Reviewed [facility] pharmacy information with patient: No Reviewed follow up appointments/procedures: No Future Appointments (next 10) Provider Department Center 11/17/2024 2:00 PM Anna Sanders PA-C [facility] 01/08/2025 10:20 AM (Arrive by 10:10 AM) Veronica Butt, SUPERVISING BROKER-DERRICK BUILDER [facility] Pulmonary [facility] Reviewed need for/follow up on diagnostic tests, referrals, and treatment plans:No Community resources identified for patient/family: No Durable medical equipment ordered: No Education provided to patient/caregiver to support self management, ADL's, etc: Take all medications as prescribed Attend all recommended follow up appointments Follow up with Urgent Care/Express Care/ED should symptoms worsen or not improve Interact with other health nonfarm animal caretaker involved in patient care: No Referral to Primary Care Coordination: No [facility] Information specific to COPD Companion Caregiver: Has home oxygen: Yes, 2-4 liters Has [...] oxygen unit is being stored SUSY Hammond, inspector health care facilitiesFrame Stripper [phone] [id number] Miscellaneous Notes* Telephone Encounter - Brooke Wu [...] Pharmacy needs: None at this time Reviewed [facility] pharmacy information with patient: No Reviewed follow up appointments/procedures: No Future Appointments (next 10) Provider Department Center 11/17/2024 2:00 PM Anna Sanders PA-C [facility] Medicine [facility] 01/08/2025 10:20 AM (Arrive by 10:10 AM) Veronica Butt APRN-[facility] Pulmonary [facility] Reviewed need for/follow up on diagnostic tests, referrals, and treatment plans:No Community resources identified for patient/family: No Durable medical equipment ordered: No Education provided to patient/caregiver to support self management, ADL's, etc: Take all medications as prescribed Attend all recommended follow up appointments Follow up with Urgent Care/Express Care/ED should symptoms worsen or not improve Interact with other health nonfarm animal caretaker involved in patient care: No Referral to Primary Care Coordination: No Referral to Pan Weber: No Information specific to COPD Companion Caregiver: Has home oxygen: Yes, 2-4 liters Has [...] oxygen unit is being stored SUSY Hammond, inspector health care facilitiesFrame Stripper [phone] documented in this [id number] Hospital Discharge instructions* Discharge Instructions* Dhiraj Ron MD - 10/26/2024 3:24 PM EDT Take Anoro-Ellipta inhaler daily and use your albuterol inhaler as needed. You can continue taking your nebulization. Complete your course of prednisone and antibiotics as indicated. We have made followup with [facility] Pulmonary Physicans Also use supplemental oxygen at discharge. documented in this [id number] Plan of care note* Care Plan Note [...] lowest SpO2 was 94%. Aura Wagner MD [id number] Miscellaneous Notes* Care Plan Note - Aura [...] 94%. Aura Wagner MD documented in this [id number] History of Present illness Narrative* Rena Thorne, YOUSIF - 10/26/2024 1:54 PM EDT A walking [...] bedside for transport at discharge, please call [employer] at [phone] (Available 08/02). Pt has been cleared to dc home with recs for OP Pulm Rehab. SW will follow for appropriate dc planning. JERRY Norris, YOUSIF Inpatient Aircraft Sheet Metal Mechanic * Raji Curran MD - 10/24/2024 7:20 PM EDT Images from the original note were not included. [facility] Internal Medicine Nursing Home Plan Note Elis Bills Age [age] year old male ROOM: [place] [address] Admitted No admission date for patient encounter. [...] - nicotine patch Remainder of plan per mba internship note. Raji Curran MD Internal Medicine, PGY-3 Available via [employer] Chat documented in this [id number] NoteDISCHARGE [address] [id number] Elis Bills Date of : 1960 64 [...] results when not reported separately) Charting in [facility] Final Diagnosis: COPD exacerbation (HCC) Hospital Problems as of 10/26/2024 * (Principal) COPD exacerbation (HCC) Exacerbation of intermittent asthma, unspecified asthma severity (HCC) Discharge Procedure Orders Pulm Rehab ADT (BCQD191) DME WALKER Oxygen Concentrator (Home Oxygen) Portable Gaseous Oxygen System Pulmonary Rehab Service Request Referral Priority: Routine Referral Type: Evaluate and Treat Referral Reason: Evaluation Referral Location: [facility] CARD PULM REHAB Number of Visits Requested: 24 Expiration Date: 10/26/25 Pulmonary COPD Service Request Referral Priority: Routine Referral Type: Service Level Authorization Referral Location: [facility] PULMONARY HV Number of Visits Requested: 3 Expiration Date: 10/26/25 Electrocardiogram (EKG) - In Clinic Future Appointments Date Time Provider Department Center 11/17/2024 2:00 PM Anna Sanders PA-C [facility] 01/08/2025 10:20 AM Ver[facility] But[facility] at Discharge improved Symptoms to look [...] for Hospitalization COPDe Significant Findings Recent Labs 10/24/24212610/25/24 0052 10/26/24 0001 NA 134* 136 136 K 4.5 4.0 4.0 CA 9.2 9.0 8.9 MG 2.2 2.2 2.3 BUN 13 14 29* CR 0.87 0.90 1.03 EGFR 96 95 81 GLU 140* 130* 104 ANIONGAP 16 15 13 Recent Labs 10/24/24212610/25/24 0052 10/26/24 0001 WBC 16.7* 16.0* 17.7* HGB [...] icterus. Heart: RRR. (more content not included)...[facility] [id number] Consult note* Karley Jose, PT - 10/26/2024 [...] Dep Max Mod Min CG CS DS AK I Comment Supine to sit x *pt [...] DME: With Patients permission ordered rollator via [employer] Order. If any questions contact [facility] DME Provider at [phone]. 10/26/2024 6 Clicks Basic Mobility PT Difficulty [...] NA = Not Assessed, I = Independent, AK = Modified Independent, Sup = Supervised, Set up = Physical Assistance for Set-up Only, Min = Minimal Assistance, Mod = Moderate Assistance, Max = Maximal assistance; Dep = Dependent; AROM = Active Range of Motion; PROM = Passive Range of Motion; MMT = Manual Muscle Test [id number] NotePHYSICAL THERAPY PROGRESS SUMMARY Patient seen from [...] Dep Max Mod Min CG CS DS AK I Comment Supine to sit x *pt [...] DME: With Patients permission ordered rollator via [employer] Order. If any questions contact [facility] DME Provider at [phone]. 10/26/2024 6 Clicks Basic Mobility PT Difficulty [...] home en (more content not included)... [facility] [id number] Consult note* Karley Jose, PT - 10/26/2024 [...] Dep Max Mod Min CG CS DS AK I Comment Supine to sit x *pt [...] DME: With Patients permission ordered rollator via [employer] Order. If any questions contact [facility] DME Provider at [phone]. 10/26/2024 6 Clicks Basic Mobility PT Difficulty [...] NA = Not Assessed, I = Independent, AK = Modified Independent, Sup = Supervised, Set up = Physical Assistance for Set-up Only, Min = Minimal Assistance, Mod = Moderate Assistance, Max = Maximal assistance; Dep = Dependent; AROM = Active Range of Motion; PROM = Passive Range of Motion; MMT = Manual Muscle Test * Rnea Thorne LSW - 10/25/2024 12:32 PM EDTAssociated Order(s): IP SOCIAL WORK SERVICE REQUEST SW is aware of consult for substance use resources. Pt declines substance use issues and states he does not need resources. 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 Denies falls or use of assist devices. [...] Dep Max Mod Min CG CS DS AK I Comment Supine<>sit x Sit<>stand x Without [...] NA = Not Assessed, I = Independent, AK = Modified Independent, Sup = Supervised, Set up = Physical Assistance for Set-up Only, Min = Minimal Assistance, Mod = Moderate Assistance, Max = Max assistance; Dep = Dependent; AROM = Active Range of Motion; PROM = Passive Range of Motion; MMT = Manual Muscle Test; LE = Lower Extremity documented in this [id number] Consult note* Rena Thorne LSW - 10/25/2024 12:32 PM EDTAssociated Order(s): IP SOCIAL WORK SERVICE REQUEST SW is aware of consult for substance use resources. Pt declines substance use issues and states he does not need resources. JERRY Norris, [facility] Inpatient Aircraft Sheet Metal Mechanic [id number] Consult note* Prashanth Luke, PT - 10/25/2024 10:00 AM [...] as soon as the doctors let me CONSUMER INSIGHT MANAGER Status: The patient describes being independent at [...] Dep Max Mod Min CG CS DS AK I Comment Supine<>sit x Sit<>stand x Without [...] NA = Not Assessed, I = Independent, AK = Modified Independent, Sup = Supervised, Set up = Physical Assistance for Set-up Only, Min = Minimal Assistance, Mod = Moderate Assistance, Max = Max assistance; Dep = Dependent; AROM = Active Range of Motion; PROM = Passive Range of Motion; MMT = Manual Muscle Test; LE = Lower Extremity [id number] NotePHYSICAL THERAPY ACUTE EVALUATION Referral received, chart [...] as soon as the doctors let me 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 Denies falls or use of assist devices. [...] Dep Max Mod Min CG CS DS AK I Comment Supine<>sit x Sit<>stand x Without [...] NA = Not Assessed, I = Independent, AK = Modified Independent, Sup = Supervised, Set up = Physical Assistance for Set-up Only, Min = Minimal Assistance, Mod = Moderate Assistance, Max = Max assistance; Dep = Dependent; AROM = Active Range of Motion; PROM = Passive Range of Motion; MMT = Manual Muscle Test; LE = Lower ExtremityThe Trover [id number] History and physical note* Aura Wagner MD - 10/25/2024 9:13 AM EDT Stepdown Unit ATTENDING NOTE AURA WAGNER MD - PIN [id number] I saw and evaluated the patient. I [...] requited rescue BPAP. Patient wad admitted to [facility] Acute hypoxemic and hypercapnic respiratory failure due [...] and Sleep Medicine [facility] [id number] History and physical note* Aura Wagner MD - 10/25/2024 9:13 AM EDT Stepdown Unit ATTENDING NOTE AURA WAGNER MD - PIN [id number] I saw and evaluated the patient. I [...] requited rescue BPAP. [facility] hypoxemic and hypercapnic respiratory failure [...] Bills Age [age] year old male [address]OM: [address] Admitted 10/24/2024 7:57 PM Hospital Day: 2 [...] if he does not drink. Last drink 4/ PM Smokes 5 cigarettes daily No other [...] 3.92 FEF50/FIF50 0.41 90-100 FIVC (L) 2.62 LHZ64-37 (L/sec) 0.90 1.20 2.56 4.44 35 Time [...] trapping, normal TLC. Normal FEV1/FVC but low NNU02-94. Chest CT with multiple sub<6mm lung nodules. No mediastinal LAD. Airway wall thickening. - home: albuterol, breztri, pulmicort, singulair Dx: asthma vs COPD vs ADHF - prior echo from 2019 showing normal EF Plan - pred 40 x5 day - resp health insurance assessor for COPDe exacerbation - CTX/azithro - [...] PGY1, Internal Medicine Preliminary Stepdown Unit Pager [phone] documented in this [id number] History and physical note* Valentina Dumont MD - 10/25/2024 2:21 AM EDT Images from the original note were not included. [facility] Step Down Unit - H&P Elis Bills Age [age] year old male ROOM: [place] [address] Admitted 10/24/2024 7:57 PM Hospital Day: 2 [...] 3.92 FEF50/FIF50 0.41 90-100 FIVC (L) 2.62 UPI01-00 (L/sec) 0.90 1.20 2.56 4.44 35 Time [...] trapping, normal TLC. Normal FEV1/FVC but low IFC05-12. Chest CT with multiple sub<6mm lung nodules. No mediastinal LAD. Airway wall thickening. - home: albuterol, breztri, pulmicort, singulair Dx: asthma vs COPD vs ADHF - prior echo from 2019 showing normal EF Plan - pred 40 x5 day - resp health insurance assessor for COPDe exacerbation - CTX/azithro - [...] PGY1, Internal Medicine Preliminary Stepdown Unit Pager [phone] [id number] (AGENT OF COVID-19) RNA: Not detected INFLUENZA A RNA: Not detected INFLUENZA B RNA: Not detected RESPIRATORY SYNCYTIAL VIRUS (RSV) RNA: Not detectedMid Coast HospitalComment on above:Performed By: #### [id number] #### [facility] CLIA [id number] [address] [place], [place] [address]02-25-2025 History of Present illness Narrative* Varun Sahni, PT - 09/12/2024 9:11 AM EST Program_ID:[id number] Access Code: [email or web address] URL: [email or web address] Date: 09-12-2024 Prepared By: Varun Sahni Program [...] 10 reps - Seated Flexion Stretch with Solomon Islander Ball - 2 x daily - 7 x weekly - 2 sets - 10 reps - Seated Thoracic Flexion and Rotation with Solomon Islander Ball - 2 x daily - 7 [...] Goals for Episode of Care: established 09/12/24 Reading in home exercise program. Restore pain-free lumbar [...] Planned: 4 Planned Treatment Interventions: Therapeutic exercise (72755), Neuromuscular re- education (60472), Manual therapy (08610), Therapeutic activities (59650), Self- skilled nursing management (02986), Patient/Family/Caregiver Education, Body Mechanics Training PLAN FOR [...] Lumbar Extension: Minimal limitation Lumbar R Side [place]: Minimal limitation Lumbar L Side [place]: Minimal limitation Lumbar R Side-Bend: Minimal limitation [...] *Seated Pallof: 1x10 each, GTB. 5: *Seated pakistani ball flexion rollouts: x10. (discussed computer chair use at home) 6: *Seated pakistani ball flexion+rotation rollouts: x10 each way (discussed [...] Varun Sahni PT, DPT. documented in this encounterTuscarawas Hospital02-25-2025 NoteHNO ID: [id number] Author: VARUN SAHNI PT Service: ? Author [...] Goals for Episode of Care: established 09/12/24 Reading in home exercise program. Restore pain-free lumbar [...] Planned: 4 Planned Treatment Interventions: Therapeutic exercise (06931), Neuromuscular re-education (37013), Manual therapy (40374), Therapeutic activities (53729), Self-skilled nursing management (16668), Patient/Family/Caregiver Education, Body Mechanics Training PLAN FOR [...] the general population. Hi (more content not included)...[facility]02-18-2025 Telephone encounter Note* Telephone Encounter - Brooke Barber - 09/05/2024 8:15 AM EST LVM that appt for 09/18/24 has been cancelled due to not needing appt on 09/18/24 and again on 10/19/24. Told patient to call office if he has any questions regarding the cancelled appt on 09/18/24. [facility]02-18-2025 Miscellaneous Notes* Telephone Encounter - Brooke Barber - 09/05/2024 8:15 AM EST LVM that appt for 09/18/24 has been cancelled due to not needing appt on 09/18/24 and again on 10/19/24. Told patient to call office if he has any questions regarding the cancelled appt on 09/18/24. documented in this encounterTuscarawas Hospital02-10-2025 Telephone encounter Note * Telephone Encounter - Puma Nicolas MA - 08/28/2024 2:37 PM EST Referral placed for physical therapy in the [facility] Internal Referral Portal. Confirmation # [id number] Puma Nicolas Ma [facility]02-10-2025 Miscellaneous Notes* Telephone Encounter - Puma Nicolas MA - 08/28/2024 2:37 PM EST Referral placed for physical therapy in the [facility] Internal Referral Portal. Confirmation # [id number] Puma Nicolas Ma documented in this encounterTuscarawas Hospital01-23-2025 History of Present illness Narrative* Lois Hoang MD - 08/10/2024 1:00 PM EST NEUROSURGERY POST-OP NOTE Lois Hoang MD [facility] [facility] Date of visit: August 10, 2024 Patient Name: Mr.Donald Tim Bills Date of : 1960 Current Age: [age] year old Sex: male MRN/E# [id number] Last Office Visit: 08/02/2024 SURGERY: L1 decompression [...] in agreement with plan. Lois Hoang MD [facility] This note was partially generated using PixelPin voice recognition system, and there may be some incorrect words, spellings, and punctuation that were not noted in checking the note before saving. documented in this encounterTuscarawas Hospital01-23-2025 NoteHNO ID: [id number] Author: LOIS HOANG MD Service: ? Author Type: Physician Type: Progress Notes Filed: 08/10/2024 13:30 Note Text: NEUROSURGERY POST-OP NOTE Lois Hoang MD [facility] Date of visit: August 10, 2024 Patient Name: Mr.Donald Tim Bills Date of : 1960 Current Age: [age] year old Sex: male MRN/E# [id number] Last Office Visit: 08/02/2024 SURGERY: L1 decompression [...] STUDIES: No new angelica (more content not included)...[facility]01-15-2025 Telephone encounter Note* Telephone Encounter - Helen Sanchez MA - 08/02/2024 12:49 PM EST Patient phones requesting refills as follows: Requested Prescriptions Pending Prescriptions Disp Refills oxyCODONE IR (ROXICODONE) 5 mg immediate release tablet 9 tablet 0 Sig: Take 1 tablet by mouth every 8 hours as needed for up to 3 days. Please review and advise. Helen Sanchez MA [facility]01-15-2025 Miscellaneous Notes* Telephone Encounter - Helen Sanchez MA - 08/02/2024 12:49 PM EST Patient phones requesting refills as follows: Requested Prescriptions Pending Prescriptions Disp Refills oxyCODONE IR (ROXICODONE) 5 mg immediate release tablet 9 tablet 0 Sig: Take 1 tablet by mouth every 8 hours as needed for up to 3 days. Please review and advise. Helen Sanchez MA documented in this encounterTuscarawas Hospital01-11-2025 NoteHNO ID: [id number] Author: SINGH MANLEY PA-C Service: Hospital Medicine Author Type: Physician Workers Compensation Adjuster Type: Plan of Care Filed: 07/29/2024 05:08 Note Text: This PA-C was notified about patient's sodium lvl of 121 by RN. Serum Osm 270. Random Na <20. Urine Osm 368. Consulted Nephrology due to decreasing NA lvls. L[facility]Brentwood Hospital01-10-2025 NoteHNO ID: [id number] Author: INGE OCONNOR APRN.CRNA Service: Anesthesiology Author Type: Nurse Pipeline Superintendent Division Type: Anesthesia Procedure Notes Filed: 07/28/2024 12:07 Note Text: ANESTHESIOLOGY PROCEDURE NOTE Airway General Information Procedure Start Time/Medication Administration: 07/28/2024 12:03 PM Procedure End Time: 07/28/2024 12:03 PM Patient location during procedure: OR Timeout Performed Pre-procedure: timeout performed Consent Obtained: Yes Patient identity confirmed: arm band, care wireless team member and patient sedated or unresponsive Staffing SR TECHNICAL SALES CONSULTANT: Inge Oconnor APRN.SR TECHNICAL SALES CONSULTANT Performed by: VIVEK Indications and Patient Condition [...] no Airway not difficult SIGNATURE: Inge Oconnor APRN.SR TECHNICAL SALES CONSULTANT PATIENT NAME: Elis Bills DATE: July 28, 2024 TIME: 12:06 PM CSN: [id number] Coast Hospital01-10-2025 NoteHNO ID: [id number] Author: KYLIE MALDONADO RN Service: Nursing Author Type: Registered Nurse Type: Nursing Progress Note Filed: 07/28/2024 09:50 Note Text: Dr. Grajeda notified: pt chewing nicorette gum, discarded at 0935.[facility]01-09-2025 Telephone encounter Note* Telephone Encounter - Stephane Bazan - 07/27/2024 9:21 AM EST Contacted patient to remind them of their arrival time for surgery with Dr. Lois Hoang on 07/28/24. Patient is to arrive at [facility] at 8:30am for surgery at 10:30am. Spoke with patient and they are aware of all arrival information. [facility]01-09-2025 Miscellaneous Notes* Telephone Encounter - Stephane Bazan - 07/27/2024 9:21 AM EST Contacted patient to remind them of their arrival time for surgery with Dr. Lois Hoang on 07/28/24. Patient is to arrive at [facility] at 8:30am for surgery at 10:30am. Spoke with patient and they are aware of all arrival information. documented in this encounterTuscarawas Hospital01-03-2025 Telephone encounter Note * Telephone Encounter - Dalia Merritt - 07/21/2024 12:50 PM EST Completed/signed form faxed back to Dr. Hoang's office. Dalia Merritt [facility]01-03-2025 Miscellaneous Notes* Telephone Encounter - Dalia Merritt - 07/21/2024 12:50 PM EST Completed/signed form faxed back to Dr. Hoang's office. Dalia Merritt * Telephone Encounter - Dalia Merritt - 07/20/2024 3:44 PM EST Type of form: Medical clearance for L2-L4 Laminectomy DOS: 07/28/24 TIMO Form received via fax When form is completed, Fax form to [phone] Form has been forwarded to Physician Mailbox: Dr. Vu Merritt documented in this encounterTuscarawas Hospital01-02-2025 Telephone encounter Note * Telephone Encounter - Dalia Merritt - 07/20/2024 3:44 PM EST Type of form: Medical clearance for L2-L4 Laminectomy DOS: 07/28/24 TIMO Form received via fax When form is completed, Fax form to [phone] Form has been forwarded to Physician Mailbox: Dr. Vu Merritt [facility]12-30-2024 Telephone encounter Note* Telephone Encounter - Lois Hoang MD - 07/17/2024 9:56 AM EST Sounds good thank you. [facility] Work Phone: 1(476) 285-903412-30-2024 Miscellaneous Notes* Telephone Encounter - Lois Hoang MD - 07/17/2024 9:56 AM EST Sounds good thank you. documented in this encounterTuscarawas Hospital12-27-2024 NoteHNO ID: [id number] Author: HARVEY PURVIS APRN.DERRICK BUILDER Service: Anesthesiology Author Type: Nurse Practitioner Type: [...] up a hill (5.50 METs) DASI Score: 5.5[facility] [id number] History of Present illness Narrative* Sarita Reyes RT(R) - 07/14/2024 2:00 PM EST Radiology Service [...] PATIENT PRESENTS WITH AN IMPLANTABLE OR ATTACHED BUCKLE SEWER: No RADIOLOGY DEPARTMENT: General X-ray: Exam(s) Completed: Chest X-Ray PERIPHERAL IV DATA: Not applicable SIGNED BY: ADRIANA Granda) July 14, 2024 1:59 PM documented in this encounterTuscarawas Hospital12-27-2024 NoteHNO ID: [id number] Author: SARITA REYES RT (R) Service: Radiology Author Type: Technologist Type: Progress [...] PATIENT PRESENTS WITH AN IMPLANTABLE OR ATTACHED BUCKLE SEWER: No RADIOLOGY DEPARTMENT: General X-ray: Exam(s) Completed: Chest X-Ray PERIPHERAL IV DATA: Not applicable SIGNED BY: ADRIANA Granda) July 14, 2024 1:59 [facility]12-27-2024 History and physical note* Harvey Purvis APRN.NABOR - 07/14/2024 1:00 PM EST Images from [...] at this time: primary care/internal medicine (in [facility]). Planned Anesthetic: general The Following Tests/Procedures Have Been Initiated: Orders Placed This Encounter Confirm Blood Type Standing Status: Future Number of Occurrences: 1 Standing Expiration Date: 10/13/2024 Order Specific Question: Did Blood Bank direct you to place this order: Answer: No - Presurgical Workflow Theralogix 160-9-4.8 mcg/actuation HFA aerosol inhaler Sig: INHALE [...] fibrillation, CAD, chest pain, DVT/PE and recent AK. GI: Positive for: GERD Negative for: abdominal [...] 450 QTC Calculation (Bazett) 482 Calculated P Rhine -13 Calculated R Rhine 78 Calculated T Rhine 24 Impression SINUS RHYTHM WITH PREMATURE SUPRAVENTRICULAR COMPLEXES RIGHT BUNDLE BRANCH BLOCK ABNORMAL ECG NO PREVIOUS ECGS AVAILABLE Confirmed by MD ERICK, DEANN ([id number]) on 12/03/2023 4:27:07 PM Recent Results (from the past 70856 hour(s)) ECHO Collection Time: 12/29/23 10:25 AM [...] which included preparing to see the patient, [id number] patient care, completing clinical documentation, obtaining and/or reviewing separately obtained history, performing a medically appropriate examination, counseling and educating the pat ient/family/caregiver, and ordering medications, tests, or procedures. SIGNATURE: Harvey Purvis APRN.CNP PATIENT NAME: Elis Bills DATE: July 14, 2024 TIME: 12:50 PM PAGER/CONTACT #: [facility]12-27[facility] History and physical note* Harvey Purvis [...] at this time: primary care/internal medicine (in [facility]). Planned Anesthetic: general The Following Tests/Procedures Have Been Initiated: Orders Placed This Encounter Confirm Blood Type Standing Status: Future Number of Occurrences: 1 Standing Expiration Date: 10/13/2024 Order Specific Question: Did Blood Bank direct you to place this order: Answer: No - Presurgical Workflow Theralogix 160-9-4.8 mcg/actuation HFA aerosol inhaler Sig: INHALE [...] fibrillation, CAD, chest pain, DVT/PE and recent AK. GI: Positive for: GERD Negative for: abdominal [...] 450 QTC Calculation (Bazett) 482 Calculated P Rhine -13 Calculated R Rhine 78 Calculated T Rhine 24 Impression SINUS RHYTHM WITH PREMATURE SUPRAVENTRICULAR COMPLEXES RIGHT BUNDLE BRANCH BLOCK ABNORMAL ECG NO PREVIOUS ECGS AVAILABLE Confirmed by MD ERICK, DEANN ([id number]) on 12/03/2023 4:27:07 PM Recent Results (from the past 08994 hour(s)) ECHO Collection Time: 12/29/23 10:25 AM [...] which included preparing to see the patient, [id number] patient care, completing clinical documentation, obtaining and/or reviewing separately obtained history, performing a medically appropriate examination, counseling and educating the pat ient/family/caregiver, and ordering medications, tests, or procedures. SIGNATURE: Harvey Purvis APRN.CNP PATIENT NAME: Elis Bills DATE: July 14, 2024 TIME: 12:50 PM PAGER/CONTACT #: documented in this encounterTuscarawas Hospital12-23-2024 Instructions* Patient Instructions* Harvey Purvis APRN.CNP - 07/10/2024 12:50 PM EST PATIENT PREOPERATIVE INSTRUCTIONS Your surgeon has scheduled for your procedure at this surgery center: [facility]: [phone], [address] [place], [place] [address] Please read below carefully for your personalized [...] mg tablet Continue until night before surgery MYRON AEROSPHERE 160-9-4.8 mcg/actuation HFA aerosol inhaler Use [...] surgery. - YOU MUST HAVE A RESPONSIBLE SHIP PURSER TAKE YOU HOME. A CUSTOMER SERVICE ADMINISTRATOR, CAB OR UBER SHIP PURSER CANNOT BE MADEA RESPONSIBLE SHIP PURSER. - If you are undergoing an outpatient [...] date of surgery. Visitation: Visitors to any [facility] facility: Any individual who is sick should not visit. Visitors to patients with COVID-19 must follow these guidelines, which include wearing a mask, eye protection, gown and gloves. [facility] in [place] Visitation hours: 7 AM to 9 PM. Pre-Surgery Unit - Patients may have up to 2 visitors at a time. PACU recovery Unit - Patients may have up to 1-2 visitors at a time. [facility] [place] Pre-Surgery area - 1 visitor at a [...] Advance Directive, please fax a copy to [phone] or email to for it to be [...] OR ORTHOPEDIC SURGERY: - Orthopedic patients at [facility] listed as outpatient, please bring walker into the building. - Orthopedic patients at [facility] listed as to be admitted, please leave walkers in the car or with a family member. - Orthopedic patients at [facility] [place], please bring the walker into the building [...] Harvey Purvis APRN.CNP 07/14/24 documented in this encounterTuscarawas Hospital12-04-2024 Telephone encounter Note * Telephone Encounter - Stephane Bazan - 06/21/2024 11:48 AM EST Patient returned my call. Discussed all surgery details. Answered all questions. [facility]12-04-2024 Miscellaneous Notes* Telephone Encounter - Stephane Bazan - 06/21/2024 11:48 AM EST Patient returned my call. Discussed all surgery details. Answered all questions. * Telephone Encounter - Stephane Bazan - 06/21/2024 9:18 AM EST Attempted to contact patient to discuss surgery details. No answer and VM box full. Unable to leavea voice message documented in this encounterTuscarawas Hospital12-04-2024 Telephone encounter Note * Telephone Encounter - Stephane Bazan - 06/21/2024 9:18 AM EST Attempted to contact patient to discuss surgery details. No answer and VM box full. Unable to leavea voice message [facility]11-21-2024 Telephone encounter Note* Telephone Encounter - Dalia Merritt - 06/08/2024 12:19 PM EST Nebulizer orders signed & faxed back to [facility]. Dalia Merritt [facility]11-21-2024 Miscellaneous Notes* Telephone Encounter - Dalia Merritt - 06/08/2024 12:19 PM EST Nebulizer orders signed & faxed back to [facility]. Dalia Merritt documented in this encounterTuscarawas Hospital11-21-2024 History of Present illness Narrative* Ermias Jane RT(R) - 06/08/2024 8:00 AM EST Radiology Service [...] PATIENT PRESENTS WITH AN IMPLANTABLE OR ATTACHED BUCKLE SEWER: No RADIOLOGY DEPARTMENT: CT; Exam(s) Completed: Chest PERIPHERAL IV DATA: Not applicable SIGNED BY: RT Fernando(Saud) June 08, 2024 11:03 AM documented in this encounterTuscarawas Hospital11-21-2024 NoteHNO ID: [id number] Author: ERMIAS JANE RT(R) Service: ? Author Type: [employer] Founder Type: Progress Notes Filed: 06/08/2024 11:03 Note [...] PATIENT PRESENTS WITH AN IMPLANTABLE OR ATTACHED BUCKLE SEWER: No RADIOLOGY DEPARTMENT: CT; Exam(s) Completed: Chest PERIPHERAL IV DATA: Not applicable SIGNED BY: RT Fernando(Saud) June 08, 2024 11:03 [facility]11-18-2024 History of Present illness Narrative* Lois Hoang MD - 06/05/2024 9:15 AM EST Images from the original note were not included. NEUROSURGERY FOLLOW UP OFFICE NOTE Lois Hoang MD [facility] Date of visit: June 05, 2024 Patient Name: Mr.Donald Tim Bills Date of : 1960 Current Age: [age] year old Sex: male MRN/E# [id number] Last Office Visit: 04/06/2024 Chief Complaint: Patient [...] in agreement with plan. Lois Hoang MD [facility] Medical Decision Making: Problems: Moderate: 2+ stable chronic illnesses Data: Unique source(s) for external note(s) reviewed: 1 Unique test result(s) reviewed: 2 Risk: High: High risk from testing/treatment Medical Decision Making Level: 4 - Moderate This note was partially generated using PixelPin voice recognition system, and there may be some incorrect words, spellings, and punctuation that were not noted in checking the note before saving. documented in this encounterTuscarawas Hospital11-18-2024 NoteHNO ID: [id number] Author: LOIS HOANG MD Service: ? Author Type: Physician Type: Progress Notes Filed: 06/05/2024 10:19 Note Text: NEUROSURGERY FOLLOW UP OFFICE NOTE Lois Hoang MD [facility] Date of visit: June 05, 2024 Patient Name: Mr.Donald Tim Bills Date of : 1960 Current Age: [age] year old Sex: male MRN/E# [id number] Last Office Visit: 04/06/2024 Chief Complaint: Patient presents with: Established Patient Past Medical/Surgical History: Elis Bills is a 63 year old male who is referred by Bertha Prebish SUPERVISING BROKER DERRICK BUILDER with pain management for neurosurgical evaluation. The [...] polydipsia, polyphagia and polyu (more content not included)...[facility]11-13-2024 Telephone encounter Note* Telephone Encounter - ShainaDemario ruthtchen - 05/31/2024 12:24 PM EST Nebulizer order signed & faxed back to [facility]. Dalia Merritt [facility]11-13-2024 Miscellaneous Notes* Telephone Encounter - Dalia Merritt - 05/31/2024 12:24 PM EST Nebulizer order signed & faxed back to [facility]. Dalia Merritt documented in this encounterTuscarawas Hospital10-24-2024 History of Present illness Narrative* Bertha Kaur APRN.DERRICK BUILDER - 05/11/2024 3:15 PM EDT Images from the original note were not included. Called pt and Cancelled Appt VIRTUAL VISIT PROGRESS NOTE This is a virtual visit using Brandlehart Zoom Video Visit. It required patient- provider interaction for the medical decision making as documented below. I have communicated my name and active licensure. The patient's identity and physical location wereverified at the time of this visit. Either the patient or their legal data entry representative has been informed of the risks and benefits of -- and alternatives to -- treatment through a remote evaluation andconsents to proceed with the evaluation remotely. [facility] Today's Date: 05/11/2024 Name: Elis Bills : 1960 Purpose: Follow-up Patient Evaluation - This is an established patient, returning today for continued evaluation and management of the chief complaint noted below (Telemedicine) Chief complaint: low back pain Referring Clinician: Pertinent Past Medical History: COPD, Obesity, HTN, HLD, CVA Pertinent Past Surgeries: B/L THR This is a virtual visit via Zoom, Phone and/or Brandlehart. It required patient- provider interaction for the [...] guidance BILATERAL SIDES at L3-4 and L4-5 Drone Operator Needed: Radiofrequency Ablation - YES Anticoagulant - Hold Needed: NO HOLD REQUIRED FOR THIS PROCEDURE Anticoagulant - Currently Taking: None, Plavix (7 days when hold needed) Allergies (relevant): None Scheduling - Mobility (Can Patient independently transfer on/off an OR or Procedure table?): YES (May schedule at any location) Scheduling - Additional Info: None Studies: None Functional Yarsanism: NONE Referrals: No additional considerations at present [...] done recent physical therapy. 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 No [...] and assume there are 5 lumbar-type vertebrae. Financial Aid Administrator: [facility] Transcribe Date/Time: Nov 19 2023 3:30P [...] or double vision) Respiratory: Negative (No Cough, Ojtsntbca-qm-kpmtln, Dyspnea on exertion, wheezing) Cardiovascular: Negative (No [...] guidance BILATERAL SIDES at L3-4 and L4-5 Drone Operator Needed: Radiofrequency Ablation - YES Anticoagulant - Hold Needed: NO HOLD REQUIRED FOR THIS PROCEDURE Anticoagulant - Currently Taking: None, Plavix (7 days when hold needed) Allergies (relevant): None Scheduling - Mobility (Can Patient independently transfer on/off an OR or Procedure table?): YES (May schedule at any location) Scheduling - Additional Info: None Studies: None Functional Yarsanism: NONE Referrals: No additional considerations at present [...] APRN.CNP Pain Management [facility] documented in [facility]24 NoteHNO ID: [id number] Author: BERTHA KAUR APRN.CNP Service: ? Author Type: Nurse Practitioner Type: Progress Notes Filed: 05/11/2024 16:01 Note Text: Called pt and Cancelled Appt VIRTUAL VISIT PROGRESS NOTE This is a virtual visit using u[employer]ention[employer] Zoom Video Visit. It required patient-provider interaction for the medical decision making as documented below. I have communicated my name and active licensure. The patient's identity and physical location were verified at the time of this visit. Either the patient or their legal data entry representative has been informed of the risks and benefits of -- and alternatives to -- treatment through a remote evaluation and consents to proceed with the evaluation remotely. [facility] Today's Date: 05/11/2024 Name: Elis Bills [...] guidance BILATERAL SIDES at L3-4 and L4-5 Drone Operator Needed: Radiofrequency Ablation - YES Anticoagulant - Hold Needed: NO HOLD REQUIRED FOR THIS PROCEDURE Anticoagulant - Currently Taking: None, Plavix (7 days when hold needed) Allergies (relevant): None Scheduling - Mobility (Can Patient independently transfer on/off an OR or Procedure table?): YES (May schedule at any location) Scheduling - Additional Info: None Studies: None Functional Yarsanism: NONE Referrals: No additional considerations at present [...] back, with no relief. (more content not included)...[facility]10-23-2024 Note* Addendum Note - Kalee Calvillo LPN - 05/10/2024 8:38 AM EDTAddended by: KALEE CALVILLO on: 05/10/2024 08:38 AM Modules accepted: Orders [facility]10-23-[facility] Miscellaneous Notes* Addendum Note - Kalee Calvillo LPN - 05/10/2024 8:38 AM EDTAddended by: KALEE CALVILLO on: 05/10/2024 08:38 AM Modules accepted: Orders documented in this encounterTuscaraw[facility]10-23-2024 Nurse Note* Jael Lamas LPN - [...] ambulatory method. Patient left in good condition. [facility] Nurse Note* Jael Lamas LPN - [...] s procedure was performed in an [facility] Procedure room. Pause completed at each [...] Marie LPN - 05/10/2024 7:06 AM EDT Drone Operator's Name: MEHREEN Are you on a blood [...] on an antibiotic: N documented in this encounterTuscarawas Hospital10-23-2024 Nurse Note* Kalee Calvillo LPN - 05/10/2024 7:51 AM EDT Procedure to be performed: L3/4 - L4/5 Unilateral Right Radiofrequency Ablation Patient was walked from exam room to procedure room and assisted onto the procedure tablePatient s procedure was performed in an [facility] Procedure room. Pause completed at each [...] allergies Procedure Start: 754 Procedure End: 812 [facility] Instructions* Patient Instructions* Jael Lamas LPN - 05/10/2024 7:49 AM EDT PROCEDURE DISCHARGE INSTRUCTIONS 05/10/2024 Elis Bills 1960 Physician: Everton Sanchez MD Procedure: BILATERAL [...] emergency care and why. documented in this encounterTuscarawas Hospital10-23-2024 NoteHNO ID: [id number] Author: EVERTON SANCHEZ MD Service: ? Author Type: Physician Type: Progress Notes Filed: 05/10/2024 08:31 Note Text: [facility] Date: 05/10/2024 Patient name: Elis Bills Physician [...] or double vision) Respiratory: Negative (No Cough, Rlcckusxf-ac-qtzckb, Dyspnea on exertion, wheezing) Cardiovascular: Negative (No [...] appropriate Assessment and Plan: As noted above [place] protocol documentation / Pre-Procedure Checklist: Consent: [...] proceed and was transpo (more content not included)...[facility] History of Present illness Narrative* Everton Sanchez MD - 05/10/2024 7:37 AM EDT [facility] Date: 05/10/2024 Patient name: Elis Bills Physician [...] or double vision) Respiratory: Negative (No Cough, Sfqbmeycb-uq-dyyhzr, Dyspnea on exertion, wheezing) Cardiovascular: Negative (No [...] appropriate Assessment and Plan: As noted above [place] protocol documentation / Pre-Procedure Checklist: Consent: [...] MBA Pain Management [facility] * Cricket Marie LPN - 05/10/2024 7:12 AM EDT Review of Systems Constitutional: Positive for activity change. Musculoskeletal: Positive for back pain and gait problem. documented in this encounterTuscarawas Hospital10-23-2024 NoteHNO ID: [id number] Author: CRICKET MARIE LPN Service: ? Author Type: LICENSED NURSE Type: Progress Notes Filed: 05/10/2024 08:31 Note Text: Review of Systems Constitutional: Positive for activity change. Musculoskeletal: Positive for back pain and gait problem.[facility] Nurse Note* Cricket Marie LPN - 05/10/2024 7:06 AM EDT Drone Operator's Name: MEHREEN Are you on a blood [...] Are you currently on an antibiotic: N [facility]10-11[facility]24 Telephone encounter Note* Telephone Encounter - Vivian Fried - 04/28/2024 9:01 AM EDT Images from the original note were not included. [facility] Miscellaneous Notes* Telephone Encounter - Vivian Fried - 04/28/2024 9:01 AM EDT Images from the original note were not included. * Telephone Encounter - Bertha Kaur APRN.CNP - 04/27/2024 4:03 PM EDT I spoke to Vivian Fried after my [...] clarify . Celeste Tong documented in this encounterTuscarawas Hospital10-10-2024 Telephone encounter Note * Telephone Encounter - Bertha Kaur APRN.CNP - 04/27/2024 4:03 PM EDT I spoke to Vivian Fried after my discussion with the pt and she is going to attempt to get him scheduled in that time slot, please defer to her. Thanks. [facility] Telephone encounter Note* Telephone Encounter - [...] sides done. Please clarify . Celeste Tong [facility]10-10-2024 Telephone encounter Note* Telephone Encounter - Celeste Tong - 04/27/2024 3:47 PM EDT Opened in errori [facility]10-10[facility]24 Miscellaneous Notes* Telephone Encounter - Celeste Sanz - 04/27/2024 3:47 PM EDT Opened in errori documented in this encounterTuscarawas Hospital10-10-2024 Instructions* Patient Instructions* Bertha Kaur APRN.CNP - 04/27/2024 3:33 PM EDT Ice and heat as tolerated Activity as tolerated documented in this encounterTuscarawas Hospital10-10-2024 History of Present illness Narrative* Bertha Kaur APRN.CNP - 04/27/2024 3:15 PM EDT Images from the original note were not included. VIRTUAL VISIT PROGRESS NOTE This is a virtual visit using [employer]t Zoom Video Visit. It required patient- provider interaction for the medical decision making as documented below. I have communicated my name and active licensure. The patient's identity and physical location wereverified at the time of this visit. Either the patient or their legal data entry representative has been informed of the risks and benefits of -- and alternatives to -- treatment through a remote evaluation andconsents to proceed with the evaluation remotely. [facility] Today's Date: 04/27/2024 Name: Elis Bills [...] guidance BILATERAL SIDES at L3-4 and L4-5 Drone Operator Needed: Medial Branch Blocks - YES Anticoagulant - Hold Needed: NO HOLD REQUIRED FOR THIS PROCEDURE Anticoagulant - Currently Taking: None Allergies (relevant): None Scheduling - Mobility (Can Patient independently transfer on/off an OR or Procedure table?): YES (May schedule at any location) Scheduling - Additional Info: None Studies: None Functional Yarsanism: NONE Referrals: No additional considerations at present [...] done recent physical therapy. 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 No [...] and assume there are 5 lumbar-type vertebrae. Financial Aid Administrator: [facility] Transcribe Date/Time: Nov 19 2023 3:30P [...] or double vision) Respiratory: Negative (No Cough, Ziubeelgc-ot-aeuqzg, Dyspnea on exertion, wheezing) Cardiovascular: Negative (No [...] guidance BILATERAL SIDES at L3-4 and L4-5 Drone Operator Needed: Radiofrequency Ablation - YES Anticoagulant - Hold Needed: NO HOLD REQUIRED FOR THIS PROCEDURE Anticoagulant - Currently Taking: None, Plavix (7 days when hold needed) Allergies (relevant): None Scheduling - Mobility (Can Patient independently transfer on/off an OR or Procedure table?): YES (May schedule at any location) Scheduling - Additional Info: None Studies: None Functional Yarsanism: NONE Referrals: No additional considerations at present [...] APRN.CNP Pain Management [facility] documented in this encounterT[facility]10-10-2024 NoteHNO ID: [id number] Author: BERTHA KAUR APRN.NABOR Service: ? Author [...] visit. Either the patient or their legal data entry representative has been informed of the risks and benefits of -- and alternatives to -- treatment through a remote evaluation and consents to proceed with the evaluation remotely. [facility] Today's Date: 04/27/2024 Name: Elis Bills : 1960 Purpose: Follow-up Patient Evaluation - This is an established patient, returning today for continued evaluation and management of the chief complaint noted below (Telemedicine) Chief complaint: low back pain Referring Clinician: Pertinent Past Medical History: COPD, Obesity, HTN, HLD, CVA Pertinent Past Surgeries: B/L THR This is a virtual visit via Zoom, Phone and/or [employer]. It required patient-provider interaction for the medical [...] guidance BILATERAL SIDES at L3-4 and L4-5 Drone Operator Needed: Medial Branch Blocks - YES Anticoagulant - Hold Needed: NO HOLD REQUIRED FOR THIS PROCEDURE Anticoagulant - Currently Taking: None Allergies (relevant): None Scheduling - Mobility (Can Patient independently transfer on/off an OR or Procedure table?): YES (May schedule at any location) Scheduling - Additional Info: None Studies: None Functional Yarsanism: NONE Referrals: No additional considerations at present [...] done recent physical therapy. 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 Patient left in good condition. [facility] Note* Greta Guillen LPN - [...] s procedure was performed in an [facility] Procedure room. Pause completed at each [...] Guillen LPN - 04/26/2024 7:25 AM EDT Drone Operator's Name: Mehreen Are you on a blood [...] on an antibiotic: no documented in this encounterT[facility]carawas Hospital10-09-2024 Instructions* Patient Instructions* Greta Guillen LPN [...] emergency care and why. documented in this encounterT[facility]10-09-2024 NoteHNO ID: [id number] Author: EVERTON SANCHEZ MD Service: ? Author Type: Physician Type: Progress Notes Filed: 04/26/2024 08:51 Note Text: [facility] Date: 04/26/2024 Patient name: Elis Bills Physician [...] or double vision) Respiratory: Negative (No Cough, Lrbxrgket-ty-fbjfrh, Dyspnea on exertion, wheezing) Cardiovascular: Negative (No [...] appropriate Assessment and Plan: As noted above [place] protocol documentation / Pre-Procedure Checklist: Consent: [...] paralysis, stroke, epidural hemat (more content not included)...[facility]-09-[facility] History of Present illness Narrative* Everton Sanchez MD - 04/26/2024 7:59 AM EDT [facility] Date: 04/26/2024 Patient name: Elis Bills [...] or double vision) Respiratory: Negative (No Cough, Psqoybbgh-vm-kmcamr, Dyspnea on exertion, wheezing) Cardiovascular: Negative (No [...] appropriate Assessment and Plan: As noted above [place] protocol documentation / Pre-Procedure Checklist: Consent: [...] ROGERSA Pain Management [facility] * Greta Guillen LPN - 04/26/2024 7:30 [...] patient is not nervous/anxious. documented in this encounterT[facility]10-09-2024 Nurse Note* Kalee Calvillo LPN - 04/26/2024 7:49 AM EDT Procedure to be performed: L3/4 - L4/5 Bilateral Medial Branch Block without steroid Patient was wheeled on stretcher from pre op bay to procedure room and assisted onto the procedure tablePatient s procedure was performed in an [facility] Procedure room. Pause completed at each [...] obtain another set of vitals. Time Out: 0805 Confirmed patient name, date of , procedure site, laterality, and allergies Procedure Start: 807 Procedure End: 817 [facility]24 NoteHNO ID: [id number] Author: GRETA GUILLEN LPN Service: ? Author [...] and suicidal ideas. The patient is not nervous/anxious.[facility] 04-26-2024 Nurse Note* Greta Guillen LPN - 04/26/2024 7:25 AM EDT Drone Operator's Name: Mehreen Are you on a blood [...] Are you currently on an antibiotic: no [facility] History of Present illness Narrative* Lois Hoang MD - 04/06/2024 9:30 AM EDT Images from the original note were not included. NEUROSURGERY CONSULT NOTE Lois Hoang MD [facility] Date of visit: April 06, 2024 Patient Name: Mr.Donald Tim Bills Date of : 1960 Current Age: [age] year old Sex: male MRN/E# [id number] Last Office Visit: Visit date not found [...] in agreement with plan. Lois Hoang MD [facility] Medical Decision Making: Problems: Moderate: New problem with uncertain prognosis Data: Unique source(s) for external note(s) reviewed: 1 Unique test result(s) reviewed: 1 Unique test(s) ordered: 1 Risk: Moderate: Moderate risk from testing/treatment Medical Decision Making Level: 4 - Moderate This note was partially generated using [employer] voice recognition system, and there may be some incorrect words, spellings, and punctuation that were not noted in checking the note before saving. documented in this encounterT[facility]09-19-2024 NoteHNO ID: [id number] Author: LOIS HOANG MD Service: ? Author Type: Physician Type: Progress Notes Filed: 04/06/2024 10:06 Note Text: NEUROSURGERY CONSULT NOTE Lois Hoang MD [facility] Date of visit: April 06, 2024 Patient Name: Mr.Donald Tim Bills Date of : 1960 Current Age: [age] year old Sex: male MRN/E# [id number] Last Office Visit: Visit date not found [...] place and ti (more content not included)... [facility] Telephone encounter Note* Telephone Encounter - [...] No 9. Does this procedure require a taxi driver supervisor? Yes If yes, has patient been notified that a taxi driver supervisor is needed and must be present at [...] their 2nd dose of the COVID vaccine.) [facility]-13[facility] Miscellaneous Notes* Telephone Encounter - Oziel [...] No 9. Does this procedure require a taxi driver supervisor? Yes If yes, has patient been notified that a taxi driver supervisor is needed and must be present at [...] of the COVID vaccine.) documented in this [facility]09-[facility] Telephone encounter Note * Telephone Encounter - Oziel Rubalcava - 03/30/2024 3:09 PM EDT Medial Branch Block (Diagnostic only, NO STEROIDS) under fluoroscopic guidance BILATERAL SIDES at L3-4 and L4-5 Called pt to schedule procedure, LVM Oziel Rubalcava [facility]09-12-2024 Miscellaneous Notes* Telephone Encounter - Oziel Rubalcava - 03/30/2024 3:09 PM EDT Medial Branch Block (Diagnostic only, NO STEROIDS) under fluoroscopic guidance BILATERAL SIDES at L3-4 and L4-5 Called pt to schedule procedure, LVM Oziel Rubalcava documented in this encounterT[facility]09-12-2024 Instructions* Patient Instructions* Bertha Kaur APRN.CNP - 03/30/2024 2:44 PM EDT Ice and heat as tolerated Activity as tolerated documented in this encounterT[facility]09-12-2024 History of Present illness Narrative* Bertha [...] visit. Either the patient or their legal data entry representative has been informed of the risks and benefits of -- and alternatives to -- treatment through a remote evaluation andconsents to proceed with the evaluation remotely. [facility] Today's Date: 03/30/2024 Name: Elis Bills [...] (ILESI) under fluoroscopic guidance NONE at L4-5 Drone Operator Needed: Epidural - YES Anticoagulant - Hold Needed: Lumbar Epidural (HOLD) Anticoagulant - Currently Taking: Plavix (7 days when hold needed) Allergies (relevant): None Scheduling - Mobility (Can Patient independently transfer on/off an OR or Procedure table?): YES (May schedule at any location) Scheduling - Additional Info: None Studies: None Functional Yarsanism: NONE Referrals: No additional considerations at present [...] done recent physical therapy. 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 No [...] and assume there are 5 lumbar-type vertebrae. Financial Aid Administrator: [facility] Transcribe Date/Time: Nov 19 2023 3:30P [...] or double vision) Respiratory: Negative (No Cough, Fmoqotifr-do-etrkeu, Dyspnea on exertion, wheezing) Cardiovascular: Negative (No [...] guidance BILATERAL SIDES at L3-4 and L4-5 Drone Operator Needed: Medial Branch Blocks - YES Anticoagulant - Hold Needed: NO HOLD REQUIRED FOR THIS PROCEDURE Anticoagulant - Currently Taking: None Allergies (relevant): None Scheduling - Mobility (Can Patient independently transfer on/off an OR or Procedure table?): YES (May schedule at any location) Scheduling - Additional Info: None Studies: None Functional Yarsanism: NONE Referrals: No additional considerations at present [...] counseling and educating the patient/family/caregiver. Bertha Kaur APRN.DERRICK BUILDER Pain Management [facility] documented in this [facility]24 NoteHNO ID: [id number] Author: BERTHA KAUR APRN.CNP Service: ? Author [...] visit. Either the patient or their legal data entry representative has been informed of the risks and benefits of -- and alternatives to -- treatment through a remote evaluation and consents to proceed with the evaluation remotely. [facility] Today's Date: 03/30/2024 Name: Elis Bills : [...] (ILESI) under fluoroscopic guidance NONE at L4-5 Drone Operator Needed: Epidural - YES Anticoagulant - Hold Needed: Lumbar Epidural (HOLD) Anticoagulant - Currently Taking: Plavix (7 days when hold needed) Allergies (relevant): None Scheduling - Mobility (Can Patient independently transfer on/off an OR or Procedure table?): YES (May schedule at any location) Scheduling - Additional Info: None Studies: None Functional Yarsanism: NONE Referrals: No additional considerations at present [...] changing pain manage (more content not included)... [facility]-30[facility] Telephone encounter Note* Telephone Encounter - Stephan Calhoun MA - 03/17/2024 10:29 AM EDT Spoke with patient following up from procedure. Patient states they are doing well, no questions orconcerns at this time. Stephan Calhoun CMA [facility]08-30-2024 Miscellaneous Notes* Telephone Encounter - Stephan Calhoun MA - 03/17/2024 10:29 AM EDT Spoke with patient following up from procedure. Patient states they are doing well, no questions orconcerns at this time. Stephan Calhoun CMA documented in this encounterT[facility]08-29-2024 History of Present illness Narrative* Everton Sanchez MD - 03/16/2024 11:20 AM EDT [facility] Date: 03/16/2024 Patient name: Elis Bills Physician [...] or double vision) Respiratory: Negative (No Cough, Tbjrqmleq-vl-ewqshz, Dyspnea on exertion, wheezing) Cardiovascular: Negative (No [...] appropriate Assessment and Plan: As noted above [place] protocol documentation / Pre-Procedure Checklist: Consent: [...] MBA Pain Management [facility] * Karthik Lopez LPN - 03/16/2024 10:57 [...] patient is not nervous/anxious. documented in this encounterT[facility]08-29-2024 NoteHNO ID: [id number] Author: EVERTON SANCHEZ MD Service: ? Author Type: Physician Type: Progress Notes Filed: 03/16/2024 11:37 Note Text: [facility] Date: 03/16/2024 Patient name: Elis Bills Physician [...] or double vision) Respiratory: Negative (No Cough, Klqywvzgo-kz-elnbtx, Dyspnea on exertion, wheezing) Cardiovascular: Negative (No Chest Pain, Tightness, Pressure, Palpitations) Gastrointestinal: Negative (No Abdominal pain, Nausea, Vomiting, Constipation, Diarrhea) Genitourinary: Negative (No dysuria) Hematologic: Negative (No bleeding, bruising) OB: is Denied or Not Applicable Endocrine: Negative (No hot/cold intolerance) Psychiatric: Negative (No depression, anxiety or suicidal ideation) PAST MEDICAL HISTORY No date: COPD (chronic obstructive pulmonary disease) ([facility]) No date: Hypercholesteremia No date: Stroke ([facility]) No past surgical history on file. FAMILY [...] appropriate Assessment and Plan: As noted above [place] protocol documentation / Pre-Procedure Checklist: Consent: Obtained in writing prior to procedure I had a nice discussion with the patient today about their current pain and the pathology that could be causing it We discussed different treatment options, including risks, benefits and alternatives. We agreed to proceed as previously discussed, or the (more content not included)...[facility]08-29-[facility] Nurse Note* Cricket Marie LPN - [...] ambulatory method. Patient left in good condition. [facility] Note* Cricket Marie LPN - [...] s procedure was performed in an [facility] Procedure room. Pause completed at each [...] allergies Procedure Start: 1107 Procedure End: 1111 * Karthik Lopez LPN - 03/16/2024 10:55 AM EDT Drone Operator's Name: MEHREEN Are you on a blood [...] to receive one? N documented in this encounterT[facility]08-29-2024 Instructions* Patient Instructions* Cricket Marie LPN - 03/16/2024 11:11 AM EDT PROCEDURE DISCHARGE INSTRUCTIONS 03/16/2024 Elis Bills 1960 Physician: Everton Sanchez MD [...] emergency care and why. documented in this encounterT[facility]08-29-2024 Nurse Note* Kalee Calvillo LPN - 03/16/2024 11:02 AM EDT Procedure to be performed: L4/L5 Interlaminar Epidural Steroid Injection Patient was wheeled on stretcher from pre op bay to procedure room and assisted onto the procedure tablePatient s procedure was performed in an [facility] Procedure room. Pause completed at each [...] allergies Procedure Start: 1107 Procedure End: 1111 [facility]08-29-2024 NoteHNO ID: [id number] Author: KARTHIK LOPEZ LPN Service: ? Author [...] and suicidal ideas. The patient is not nervous/anxious.[facility] 03-16-2024 Nurse Note* Karthik Lopez LPN - 03/16/2024 10:55 AM EDT Drone Operator's Name: MEHREEN Are you on a blood [...] are you scheduled to receive one? N [facility]08-29-2024 Telephone encounter Note* Telephone Encounter - Bertha Kaur APRN.CNP - 03/16/2024 8:02 AM EDT Could you proof read this please. Thanks. [facility]08-29-2024 Miscellaneous Notes* Telephone Encounter - Bertha Kaur APRN.CNP - 03/16/2024 8:02 AM EDT Could you proof read this please. Thanks. documented in this encounterTuscaraw[facility]08-28-[facility]24 Telephone encounter Note * Telephone Encounter [...] can reschedule. Patient voiced understanding. Vivian Corky [facility]08-28-2024 Miscellaneous Notes* Telephone Encounter - Vivian Fried - 03/15/2024 8:19 AM EDT Called and spoke with patient and informed him that he will need to speak with Financial Clearance before I can place him back on the schedule for this procedure. I will need this procedure paid for and cleared by them before we can reschedule. Patient voiced understanding. Vivian Corky * Telephone Encounter - Alisa Mckeecey - 03/15/2024 8:12 AM EDT ----- Message from OMsignal sent at 03/14/2024 4:14 PM EDT ----- [...] with this appt. Was Patient Referred to [facility]/Seek Emergency Treatment (Y/N): n Did Patient Agree (Y/N): n Was An Attempt Made To Transfer The Patient To The Office (Y/N): n Were You Able To Reach Someone At The Office (Y/N): n If Yes - Patient Was Transferred To (Caregivers Name): n If No - Which [facility] Bar Waiter/Waitress Did You Speak With Regarding This Patient: n Was an appointment scheduled (Y/N): n/a Reason patient was requesting visit (RFV/signs and symptoms/diagnosis) : procedure Person calling if other than patient: Spouse, Mehreen Bills Return call to if other than patient: josy Best contact number: [phone] Thank you, Johnny Hdez March 14, 2024 4:14 PM documented in this encounterT[facility]08[facility]24 Telephone encounter Note * Telephone Encounter [...] (Caregivers Name): n If No - Which [facility] Waiter/Waitress Did You Speak With Regarding This Patient: n Was an appointment scheduled (Y/N): n/a Reason patient was requesting visit (RFV/signs and symptoms/diagnosis) : procedure Person calling if other than patient: Spouse, Mehreen Bills Return call to if other than patient: y Best contact number: [phone] Thank you, Johnny Hdez March 14, 2024 4:14 PM [facility]08-26-[facility]24 Telephone encounter Note* Telephone Encounter - [...] date 03/08/2024 Insurance Case Information Insurance Name Umer Patient's Insurance Case# [id number] Ordering Provider Bertha Kaur Approved Services N/A Denied Services [id number] - NJX DX/THER SBST INTRLMNR LMBR/SAC W/IMG GDN Alternative Recommendation N/A *Service which can be approved in place of denied service. Clinical Documentation Provided Office Visit 11/11/2023, 09/23/2023 [facility] 02/24/2024, 12/22/2023, 11/25/2023, 10/29/2023 Procedure 12/16/2023, 10/28/2023 CT CHEST WO IVCON 12/29/2023 XR CHEST 1V FRONTAL 12/01/2023 MRI LUMBAR SPINE WO IVCON 11/19/2023 CT CHEST WO IVCON 09/02/2023 Peer to Peer Instructions Peer to Peer , options: 1-2 Does Peer to Peer need to be scheduled? Yes Who can complete the Peer to Peer? Dr, PA, THIRD GRADE TEACHER, LN Additional Peer to Peer Instructions You can call for the peer to peer at the date and time of your convenience Appeal Instructions Appeal Address [address] [address], [facility], [address] Appeal Fax# No fax# available Required Form(s) Yes, Please see attached or can be found at [email or web address] (Humouno). Additional Appeal Instructions Send it attention to: Appeals department. Include: coversheet with patient's and case information, a formal appeal letter and attach any pertinent supporting clinical documentation. Also, insurance requires a formal appeal form filled out if you would like to submit a written appeal. Facility Information Location [facility] [id number] Tax ID# [id number] [facility]08-26-2024 Miscellaneous Notes* Telephone Encounter - Chanda [...] Information Insurance Name MARANDA Patient's Insurance Case# [id number] Ordering Provider Bertha Kaur Approved Services N/A Denied Services [id number] - NJX DX/THER SBST INTRLMNR LMBR/SAC W/IMG GDN Alternative Recommendation N/A *Service which can be approved in place of denied service. Clinical Documentation Provided Office Visit 11/11/2023, 09/23/2023 [facility] 02/24/2024, 12/22/2023, 11/25/2023, 10/29/2023 Procedure 12/16/2023, 10/28/2023 CT CHEST WO IVCON 12/29/2023 XR CHEST 1V FRONTAL 12/01/2023 MRI LUMBAR SPINE WO IVCON 11/19/2023 CT CHEST WO IVCON 09/02/2023 Peer to Peer Instructions Peer to Peer , options: 1-2 Does Peer to Peer need to be scheduled? Yes Who can complete the Peer to Peer? Dr, PA, THIRD GRADE TEACHER, LN Additional Peer to Peer Instructions You can call for the peer to peer at the date and time of your convenience Appeal Instructions Appeal Address [address] [address], [facility], [address] Appeal Fax# No fax# available Required Form(s) Yes, Please see attached or can be found at [email or web address] (Humouno). Additional Appeal Instructions Send it attention to: Appeals department. Include: coversheet with patient's and case information, a formal appeal letter and attach any pertinent supporting clinical documentation. Also, insurance requires a formal appeal form filled out if you would like to submit a written appeal. Facility Information Location [facility] [id number] Tax ID# [id number] documented in [facility] encounterT[facility] Telephone encounter Note * Telephone Encounter [...] No 9. Does this procedure require a taxi driver supervisor? Yes If yes, has patient been notified that a taxi driver supervisor is needed and must be present at [...] dose of the COVID vaccine.) Diane Kaye [facility]08-09-2024 Miscellaneous Notes* Telephone Encounter - Diane [...] No 9. Does this procedure require a taxi driver supervisor? Yes If yes, has patient been notified that a taxi driver supervisor is needed and must be present at [...] COVID vaccine.) Diane Kaye documented in this encounterT[facility]08-09-2024 Telephone encounter Note * Telephone Encounter - Diane Kaye - 02/25/2024 11:06 AM EDT The Anticoag Management letter has been sent to the PCP, Pilar Lanza DO via facsimile. [phone] Diane Kaye [facility]08-09-2024 Miscellaneous Notes* Telephone Encounter - Diane Kaye - 02/25/2024 11:06 AM EDT The Anticoag Management letter has been sent to the PCP, Pilar Lanza DO via facsimile. [phone] Diane Kaye documented in this encounterTuscarawas Hospital08-09-2024 Telephone encounter Note * Telephone Encounter - Rose Leal - 02/25/2024 8:15 AM EDT Outbound Call to patient to schedule Injection - Epidural Steroid Injection - Interlaminar Approach (ILESI) under fluoroscopic guidance NONE at L4-5(Currently Taking: Plavix needs 7 day hold) - Reached VM; LVM [phone] (cell/home) JASS Block [facility]08-09-2024 Miscellaneous Notes* Telephone Encounter - Rose Leal - 02/25/2024 8:15 AM EDT Outbound Call to patient to schedule Injection - Epidural Steroid Injection - Interlaminar Approach (ILESI) under fluoroscopic guidance NONE at L4-5(Currently Taking: Plavix needs 7 day hold) - Reached VM; LVM [phone] (cell/home) JASS Block documented in this encounterTuscarawas Hospital08-08-2024 Instructions* Patient Instructions* Bertha Kaur APRN.CNP - 02/24/2024 4:21 PM EDT Ice and heat as tolerated Activity as tolerated documented in this encounterTuscarawas Hospital08-08-2024 History of Present illness Narrative* Bertha [...] visit. Either the patient or their legal data entry representative has been informed of the risks and benefits of -- and alternatives to -- treatment through a remote evaluation andconsents to proceed with the evaluation remotely. [facility] [place] [facility] Today's Date:02/24/2024 Name: Elis Bills : [...] presents with complaint(s) of lumbar spondylosis. 12/16/23 MBB #1L3-4 and L4-5. Patient reports 80 [...] Medications Interventional Procedures: None Studies: None Functional Yarsanism: NONE Referrals: No additional considerations at present [...] done recent physical therapy. 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 No [...] DATE OF EXAM: Nov 19 2023 12:39PM [facility] 0303 - MRI LUMBAR SPINE WO IVCON [...] and assume there are 5 lumbar-type vertebrae. Financial Aid Administrator: PSCB Transcribe Date/Time: Nov 19 2023 3:30P [...] or double vision) Respiratory: Negative (No Cough, Xzqkweboc-ej-mnnknf, Dyspnea on exertion, wheezing) Cardiovascular: Negative (No [...] (ILESI) under fluoroscopic guidance NONE at L4-5 Drone Operator Needed: Epidural - YES Anticoagulant - Hold Needed: Lumbar Epidural (HOLD) Anticoagulant - Currently Taking: Plavix (7 days when hold needed) Allergies (relevant): None Scheduling - Mobility (Can Patient independently transfer on/off an OR or Procedure table?): YES (May schedule at any location) Scheduling - Additional Info: None Studies: None Functional Yarsanism: NONE Referrals: No additional considerations at present [...] APRN.CNP Pain Management [facility] documented in this encounterT[facility]08-[facility]24 NoteHNO ID: [id number] Author: BERTHA KAUR APRN.CNP Service: ? Author [...] visit. Either the patient or their legal data entry representative has been informed of the risks and benefits of -- and alternatives to -- treatment through a remote evaluation and consents to proceed with the evaluation remotely. [facility] Today's Date:02/24/2024 Name: Elis Bills : [...] Medications Interventional Procedures: None Studies: None Functional Yarsanism: NONE Referrals: No additional considerations at present [...] injury is unknown. RED (more content not included)...[facility]07-08-2024 Telephone encounter Note* Telephone Encounter - Catherine Champion APRN.CNP - 01/24/2024 3:02 PM EDT Please assist Catherine Champion APRN.CNP [facility] Work Phone: 1(432) 104-717607-08-2024 Miscellaneous Notes* Telephone Encounter - Catherine Champion APRN.CNP - 01/24/2024 3:02 PM EDT Please assist Catherine Champion APRN.CNP documented in this encounterT[facility]car[facility] Hospital07-01-2024 Telephone encounter Note * Telephone Encounter - Lindsey Delgado RN - 01/17/2024 9:17 AM EDT TIMO: 11/11/2023 Future OV: 02/10/2024 Call transferred to Marie RN from [address] center. Mehreen, patient's called. Patient name [...] worsening SOB. is agreeable and verbalized understanding. [facility]07-01-2024 Miscellaneous Notes* Telephone Encounter - Lindsey Delgado RN - 01/17/2024 9:17 AM EDT TIMO: 11/11/2023 Future OV: 02/10/2024 Call transferred to Marie RN from [address] Mehreen, patient's called. Patient name and [...] agreeable and verbalized understanding. documented in this encounterTus[facility] Hospital06-25-2024 Telephone encounter Note * Telephone Encounter - Edel Cramer - 01/11/2024 8:20 AM EDT Pharmacy faxed requesting the following refill. TIMO: 11/11/23-patient requesting 90 day supply [facility]. Requested Prescriptions Pending Prescriptions Disp Refills mometasone-formoterol (DULERA) 200-5 mcg/actuation inhaler 39 g 3 Sig: Inhale 2 Puffs as instructed two times a day. Patient Phone numbers: [phone] (home) Request is for script(s) to be escript to pharmacy. Edel Cramer [facility]06-25-2024 Miscellaneous Notes* Telephone Encounter - Edel Cramer - 01/11/2024 8:20 AM EDT Pharmacy faxed requesting the following refill. TIMO: 11/11/23-patient requesting 90 day supply be sent to [facility]. Requested Prescriptions Pending Prescriptions Disp Refills mometasone-formoterol (DULERA) 200-5 mcg/actuation inhaler 39 g 3 Sig: Inhale 2 Puffs as instructed two times a day. Patient Phone numbers: [phone] (home) Request is for script(s) to be escript to pharmacy. Edel Cramer documented in this encounterTuscarawas Hospital06-20-2024 Telephone encounter Note * Telephone Encounter [...] for wheezing/shortness of breath. Patient Phone numbers: [phone] (home) Request is for script(s) to be escript to mail order [facility]. Dalia Merritt [facility]06-20-2024 Miscellaneous Notes* Telephone Encounter - Dalia [...] for wheezing/shortness of breath. Patient Phone numbers: [phone] (home) Request is for script(s) to be escript to mail order [facility]. Dalia Merritt documented in this encounterTuscarawas Hospital06-17-2024 Telephone encounter Note * Telephone Encounter - Brooke Her RN - 01/03/2024 3:24 PM EDT Attempted to contact patient via telephone. Patient telephone extreme static and was unable to speak with patient. Sent [email or web address] message regarding message below. Alen Mayorga MD15 minutes ago (3:05 PM) CT chest shows stable small/tiny nodules. Further decision for continued surveillance to be made byDr. Womack at subsequent office visits. CT shows dilated pulmonary artery but recent Echo shows normal RV size and function. Brooke Her RN [facility]06-17-2024 Miscellaneous Notes* Telephone Encounter - Brooke Her RN - 01/03/2024 3:24 PM EDT Attempted to contact patient via telephone. Patient telephone extreme static and was unable to speak with patient. Sent [email or web address] message regarding message below. Alen Mayorga MD15 minutes ago (3:05 PM) CT chest shows stable small/tiny nodules. Further decision for continued surveillance to be made byDr. Womack at subsequent office visits. CT shows dilated pulmonary artery but recent Echo shows normal RV size and function. Brooke Her, RN * Telephone Encounter - Alen Mayorga MD - 01/03/2024 3:[address] chest shows stable small/tiny nodules. Further decision for continued surveillance to be made byDr. Womack at subsequent office visits. CT shows dilated pulmonary artery but recent Echo shows normal RV size and function. documented in this encounterTuscarawas Hospital06-17-2024 Telephone encounter Note * Telephone Encounter - Alen Mayorga MD - 01/03/2024 3:[address] chest shows stable small/tiny nodules. Further decision for continued surveillance to be made byDr. Womack at subsequent office visits. CT shows dilated pulmonary artery but recent Echo shows normal RV size and function. [facility] Work Phone: 1(357) 650-119306-12-2024 History of Present illness Narrative* Rose Victoria [...] PATIENT PRESENTS WITH AN IMPLANTABLE OR ATTACHED BUCKLE SEWER: No RADIOLOGY DEPARTMENT: CT; Exam(s) Completed: Chest PERIPHERAL IV DATA: Not applicable SIGNED BY: RT Chasity(Saud) December 29, 2023 11:15 AM documented in this encounterTuscarawas Hospital06-12-2024 NoteHNO ID: [id number] Author: ROSE VICTORIA RT (R) Service: Radiology Author Type: [employer] Founder Type: Progress Notes Filed: 12/29/2023 11:15 Note [...] PATIENT PRESENTS WITH AN IMPLANTABLE OR ATTACHED BUCKLE SEWER: No RADIOLOGY DEPARTMENT: CT; Exam(s) Completed: Chest PERIPHERAL IV DATA: Not applicable SIGNED BY: RT Chasity(Saud) December 29, 2023 11:15 [facility]06-05-2024 History of Present illness Narrative* Yashira Gonsales APRN.DERRICK BUILDER - 12/22/2023 4:00 PM EDT Images from [...] visit. Either the patient or their legal data entry representative has been informed of the risks and benefits of -- and alternatives to -- treatment through a remote evaluation andconsents to proceed with the evaluation remotely. [facility] Today's Date:12/22/23 Name: Elis Bills : 1960 Purpose: Post-Procedure Evaluation (Telemedicine) Chief complaint: low back pain Referring Clinician: Pertinent Past Medical History: COPD, Obesity, HTN, HLD, CVA Pertinent Past Surgeries: B/L THR This is a virtual visit via Zoom, Phone and/or Brandlehart. It required patient- provider interaction for the [...] done recent physical therapy. 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 No [...] and assume there are 5 lumbar-type vertebrae. Financial Aid Administrator: YAIR Transcribe Date/Time: Nov 19 2023 3:30P [...] or double vision) Respiratory: Negative (No Cough, Srlnstwzw-jq-tiupgm, Dyspnea on exertion, wheezing) Cardiovascular: Negative (No [...] Medications Interventional Procedures: None Studies: None Functional Yarsanism: NONE Referrals: No additional considerations at present [...] APRN.CNP Pain Management [facility] documented in this encounterT[facility]06-05-2024 NoteHNO ID: [id number] Author: YASHIRA GONSALES APRN.NABOR Service: ? Author Type: Nurse Practitioner [...] visit. Either the patient or their legal data entry representative has been informed of the risks and benefits of -- and alternatives to -- treatment through a remote evaluation and consents to proceed with the evaluation remotely. [facility] [place] [facility] Today's Date:12/22/23 Name: Elis Bills : [...] done recent physical therapy. 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 No answer, unable to leave a message. Greta Guillen LPN [facility]05-31-2024 Miscellaneous Notes* Telephone Encounter - Greta Guillen LPN - 12/17/2023 10:09 AM EDT Cutesy call made to follow-up after procedure. No answer, unable to leave a message. Greta Guillen LPN documented in this encounterCleveland Naazjr23-05-1557 NoteHNO ID: [id number] Author: DHIRAJ HERR MD Service: ? Author Type: Physician Type: Progress Notes Filed: 12/16/2023 12:55 Note Text: [facility] Date: 12/16/2023 Patient name: Elis Bills Physician [...] or double vision) Respiratory: Negative (No Cough, Eyrbjolkq-bx-xdldhy, Dyspnea on exertion, wheezing) Cardiovascular: Negative (No [...] appropriate Assessment and Plan: As noted above [place] protocol documentation / Pre-Procedure Checklist: Consent: [...] nerve damage, paral (more content not included)... [facility]-30[facility] History of Present illness Narrative* Dhiraj Herr MD - 12/16/2023 12:54 PM EDT [facility] Date: 12/16/2023 Patient name: Elis Bills Physician [...] or double vision) Respiratory: Negative (No Cough, Adzlfmifx-ip-nklqxb, Dyspnea on exertion, wheezing) Cardiovascular: Negative (No [...] appropriate Assessment and Plan: As noted above [place] protocol documentation / Pre-Procedure Checklist: Consent: [...] written instructions was offered to the patient. Dhriaj Herr MD Pain Management [facility] * Kalee Calvillo LPN - 12/16/2023 10:27 [...] patient is not nervous/anxious. documented in this encounterTuscarawas Hospital05-30-2024 Nurse Note* Jael Lamas LPN - [...] ambulatory method. Patient left in good condition. [facility]30[facility] Nurse Note* Jael Lamas LPN - [...] s procedure was performed in an [facility] Procedure room. Pause completed at each [...] Calvillo LPN - 12/16/2023 10:23 AM EDT Drone Operator's Name: mehreen Are you on a blood [...] to receive one? n documented in this encounterTuscarawas Hospital05-30-2024 Instructions* Patient Instructions* Jael Lamas LPN [...] emergency care and why. documented in this encounterTuscarawas Hospital05-30-2024 Nurse Note* Karthik Lopez LPN - 12/16/2023 10:30 AM EDT Procedure to be performed: BILATERAL L3/L4, L4/L5 LUMBAR MEDIAL BRANCH BLOCK Patient was wheeled on stretcher from pre op bay to procedure room and assisted onto the procedure tablePatient s procedure was performed in an [facility] Procedure room. Pause completed at each [...] allergies Procedure Start: 1047 Procedure End: 1051 [facility]-30-[facility]24 NoteHNO ID: [id number] Author: KALEE CALVILLO LPN Service: ? Author [...] and suicidal ideas. The patient is not nervous/anxious.[facility] 12-16-2023 Nurse Note* Kalee Calvillo LPN - 12/16/2023 10:23 AM EDT Drone Operator's Name: mehreen Are you on a blood [...] are you scheduled to receive one? n [facility]05-28-[facility]24 Telephone encounter Note* Telephone Encounter - [place]isa mehtacey - 12/14/2023 4:10 PM EDT Patient Last [...] Information Insurance Name MARANDA Patient's Insurance Case# [id number] Ordering Provider Bertha Kaur Approved Services N/A Denied Services 47612 - NJX DX/THER AGT PVRT FACET JT LMBR/SAC 1 LEVEL 73032 - NJX DX/THER AGT PVRT FACET JT LMBR/SAC 2ND LEVEL Alternative Recommendation N/A *Service which can be approved in place of denied service. Clinical Documentation Provided [facility] 11/25/2023, 10/29/2023 FOLLOW UP APPOITNMENT WHEN PROVIDED SPECIFIED 12/02/2023 XR CHEST 1V FRONTAL 12/01/2023 MRI LUMBAR SPINE WO IVCON 11/19/2023 Peer to Peer Instructions Peer to Peer , options: 1-2 Does Peer to Peer need to be scheduled? Yes Who can complete the Peer to Peer? , PA, THIRD GRADE TEACHER, LN Additional Peer to Peer Instructions You can call for the peer to peer at the date and time of your convenience Appeal Instructions Appeal Address [address] [address], [facility], [address] Appeal Fax# No fax# available Required Form(s) Yes, Please see attached or can be found at [email or web address] (Humouno). Additional Appeal Instructions Send it attention to: Appeals department. Include: coversheet with patient's and case information, a formal appeal letter and attach any pertinent supporting clinical documentation. Also, insurance requires a formal appeal form filled out if you would like to submit a written appeal. Facility Information Location [facility] [id number] Tax ID# [id number] [facility]05-28[facility]24 Miscellaneous Notes* Telephone Encounter - Chanda [...] Information Insurance Name MM Patient's Insurance Case# [id number] Ordering Provider Bertha Kaur Approved Services N/A Denied Services 57820 - NJX DX/THER AGT PVRT FACET JT LMBR/SAC 1 LEVEL 85363 - NJX DX/THER AGT PVRT FACET JT LMBR/SAC 2ND LEVEL Alternative Recommendation N/A *Service which can be approved in place of denied service. Clinical Documentation Provided [facility] 11/25/2023, 10/29/2023 FOLLOW UP APPOITNMENT WHEN PROVIDED SPECIFIED 12/02/2023 XR CHEST 1V FRONTAL 12/01/2023 MRI LUMBAR SPINE WO IVCON 11/19/2023 Peer to Peer Instructions Peer to Peer , options: 1-2 Does Peer to Peer need to be scheduled? Yes Who can complete the Peer to Peer? Dr, PA, THIRD GRADE TEACHER, LN Additional Peer to Peer Instructions You can call for the peer to peer at the date and time of your convenience Appeal Instructions Appeal Address [address] [address], [facility], [address] Appeal Fax# No fax# available Required Form(s) Yes, Please see attached or can be found at [email or web address] ([employer]). Additional Appeal Instructions Send it attention to: Appeals department. Include: coversheet with patient's and case information, a formal appeal letter and attach any pertinent supporting clinical documentation. Also, insurance requires a formal appeal form filled out if you would like to submit a written appeal. Facility Information Location [facility] [id number] Tax ID# [id number] documented in [facility] encounterT[facility]24 NoteHNO ID: [id number] Author: DEE YOUSSEF RN Service: Care Management Author Type: Registered Nurse Type: Care Mgt Initial Assessment Filed: 12/01/2023 15:44 Note Text: CARE MANAGEMENT: ASSESSMENT AND DISCHARGE PLAN SERVICE DATE: December 01, 2023 SERVICE TIME: 3:38 PM PCP: Pilar Lanza DO Primary Contact: Extended Emergency Contact Information Primary Emergency Contact: Mehreen Bills Laura Mobile Relation: Spouse Admission Status: Observation Insurance Provider: MMO SUPERMED PPO Discharge Planning requested by: Potential Transition Plans No Services Indicated Advance Directives Current Advance Directive: None Railroad Car Checker Attempted to Assist with AD Completion: Yes [...] Prep Current Services/Equipment Discharge Planning Patient Goal(s): [place] of Choice Explained: Are you interested in [...] IV antibx. 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 He uses a nebulizer and inhalers at home. His pcp is Dr Lanza and he sees Pulmonary in [place]. He stated he has upcoming appts for spots on lung. His support is his but verbalizes stress with his work and has trouble sleeping at night. He has rx coverage and denies any financial concerns. Discussed scheduling sleep study at [place]. Pt declined- he stated his is scheduling a Home sleep study through [facility]. Will follow SIGNATURE: Dee Youssef RN PATIENT NAME: Elis Bills DATE: December 01, 2023 TIME: 3:37 PM CONTACT #: [phone] Note* Telephone Encounter - Vivian Fried - 11/29/2023 [...] scheduled for the Lumbar MBB's. Vivian Fried [facility]05-13-[facility]24 Miscellaneous Notes* Telephone Encounter - Vivian [...] Lumbar MBB's. Vivian Fried documented in this encounterTuscarawas Hospital05-10-2024 Telephone encounter Note * Telephone Encounter - Toya Tucker - 11/26/2023 10:21 AM EDT Patient was called and spoke with. Patient is going to have his call later to schedule the appointment since he was placed on a blood thinner and is 100% sure what it is. Toya Tucker [facility]-10[facility]24 Miscellaneous Notes* Telephone Encounter - Toya Tucker - 11/26/2023 10:21 AM EDT Patient was called and spoke with. Patient is going to have his call later to schedule the appointment since he was placed on a blood thinner and is 100% sure what it is. Toya Tucker documented in this encounterTuscarawas Hospital05-09-2024 Instructions* Patient Instructions* Bertha Kaur APRN.CNP - 11/25/2023 2:28 PM EDT Ice and heat as tolerated Activity as tolerated documented in this encounterTuscarawas Hospital05-09-2024 History of Present illness Narrative* Bertha Kaur APRN.CNP - 11/25/2023 2:15 PM EDT Images from the original note were not included. VIRTUAL VISIT PROGRESS NOTE This is a virtual visit using [employer] Video Visit. It required patient- provider interaction for the medical decision making as documented below. I have communicated my name and active licensure. The patient's identity and physical location wereverified at the time of this visit. Either the patient or their legal data entry representative has been informed of the risks and benefits of -- and alternatives to -- treatment through a remote evaluation andconsents to proceed with the evaluation remotely. [facility] [place] [facility] Today's Date: 11/25/2023 Name: Elis Bills [...] and validated on 11/25/2023 by Bertha Kaur APRN.DERRICK BUILDER All prescriptions have been APPROPRIATELY filled. No [...] Risk Tool Date Completed 09/23/2023 Comments 0 MOHIDNER-7 Anxiety Score 0 Completed Date 09/23/2023 PHQ9P [...] and assume there are 5 lumbar-type vertebrae. Financial Aid Administrator: PSCB Transcribe Date/Time: Nov 19 2023 3:30P [...] guidance BILATERAL SIDES at L4-5 and L5-S1 Drone Operator Needed: Medial Branch Blocks - YES Anticoagulants: None, Plavix (7 days when hold needed) Relevant Allergies: None Additional Info: None Studies: None Functional Yarsanism: NONE Referrals: No additional considerations at present [...] APRN.CNP Pain Management [facility] documented in this encounterTuscarawas Hospital05-09-2024 NoteHNO ID: [id number] Author: BERTHA KAUR APRN.CNP Service: ? Author Type: Nurse Practitioner Type: Progress Notes Filed: 11/25/2023 14:35 Note Text: VIRTUAL VISIT PROGRESS NOTE This is a virtual visit using [employer] Video Visit. It required patient-provider interaction for the medical decision making as documented below. I have communicated my name and active licensure. The patient's identity and physical location were verified at the time of this visit. Either the patient or their legal data entry representative has been informed of the risks and benefits of -- and alternatives to -- treatment through a remote evaluation and consents to proceed with the evaluation remotely. [facility] [place] [facility] Today's Date: 11/25/2023 Name: Elis Bills [...] and validated on 11/25/2023 by Bertha Kaur APRN.DERRICK BUILDER All prescriptions have been APPROPRIATELY filled. No [...] DATE OF EXAM: Nov 19 2023 12:39PM BRSocorro 0303 - MRI LUMBAR SPINE WO IVCON / (more content not included)...[facility] Telephone encounter Note* Telephone Encounter - Albertina Martin - 11/23/2023 9:12 AM EDT Spoke with patient and scheduled virtual visit with Bertha Kaur on 11/25/2023 to discuss MRI Albertina Martin Autocad Designer to Dr. Everton Sanchez MD / Bertha Kaur CNP, APRN [facility] Call [address] [place] [address] Phone. [phone] / Fax. [phone] [facility]-07-[facility] Miscellaneous Notes* Telephone Encounter - Albertina Martin - 11/23/2023 9:12 AM EDT Spoke with patient and scheduled virtual visit with Bertha Kaur on 11/25/2023 to discuss MRI Albertina Martin Hammett to Dr. Everton Sanchez MD / Bertha Kaur CNP, APRN [facility] [facility] Call [address] [place] [address] Phone. [phone] / Fax. [phone] * Telephone Encounter - Bertha Kaur APRN.CNP - 11/21/2023 10:20 PM EDT Hi, can you please call this pt and set up for a virtual visit with me this to discuss hisMRI results? Thanks. documented in this encounterTuscarawas Hospital05-05-2024 Telephone encounter Note * Telephone Encounter - Bertha Kaur APRN.CNP - 11/21/2023 10:20 PM EDT Hi, can you please call this pt and set up for a virtual visit with me this to discuss hisMRI results? Thanks. [facility] History of Present illness Narrative* Malena Yoder MRI Tech - 11/19/2023 12:00 PM EDT Radiology Service [...] PATIENT PRESENTS WITH AN IMPLANTABLE OR ATTACHED BUCKLE SEWER: No RADIOLOGY DEPARTMENT: MR; Exam(s) Completed: Spine: Lumbar spine PERIPHERAL IV DATA: Not applicable SIGNED BY: Malena Yoder A.A.S.,RT (R) (CT)(MR) November 19, 2023 3:40 PM documented in this encounterTuscarawas Hospital04-25-2024 Instructions* Patient Instructions* Shelton Flores MD [...] replacement therapy: Please visit the following website: [email or web address]/en-US/ OR Call 7-399-GVMD-NOW ([phone]) Use patches and gum both at the [...] of Nicotine replacement therapy. documented in this encounterTuscarawas Hospital04-25-2024 History of Present illness Narrative* Shelton Flores MD - 11/11/2023 9:15 AM EDT Images from the original note were not included. Respiratory Call Progress Note Mr. Bills is a 63 year old male who [facility]. Consultation requested by Dr. 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 Other [...] DATE OF EXAM: Sep 02 2023 1:21PM [facility] [id number] - CT CHEST WO IVCON / [...] No abnormality in the imaged upper abdomen. Geriatric Nursing Assistant (topogram) images: No additional findings. Impression: IMPRESSION: [...] obtained in 12 months --END OF FINDING-- Financial Aid Administrator: YAIR Transcribe Date/Time: Sep 05 2023 11:40A Dictated by : WILLIAM QUINTANA MD This examination was interpreted and the report reviewed and electronically signed by: WILLIAM QUINTANA MD on Sep 05 2023 11:47AM EST No results found. Echo: No results found for this or any previous visit (from the past 01115 hour(s)). Vaccines: Immunization History Administered Date(s) Administered tetanus diphtheria pertussis (Tdap) vaccine, age 7+ yr (ADACEL, BOOSTRIX) 06/14/2023 Assessment: Mr. Bills is a 63 year old male who [facility] for evaluation of allergic asthma and tobacco [...] trapping, normal TLC. Normal FEV1/FVC but low TOS38-14. Chest CT with multiple sub<6mm lung nodules. [...] Care Medicine [facility] Pager / phone [phone] November 11, 2023 1130 documented in this encounterTuscarawas Hospital04-12-2024 Instructions* Patient Instructions* Bertha Kaur APRN.CNP - 10/29/2023 4:27 PM EDT Ice and heat as tolerated Activity as tolerated documented in this encounterTuscarawas Hospital04-12-2024 History of Present illness Narrative* Bertha Kaur APRN.DERRICK BUILDER - 10/29/2023 3:15 PM EDT VIRTUAL VISIT PROGRESS NOTE This is a virtual visit using Audio Only Visit. It required patient-provider interaction for the medical decision making as documented below. I have communicated my name and active licensure. The patient's identity and physical location wereverified at the time of this visit. Either the patient or their legal data entry representative has been informed of the risks [...] 1. Lumbar spondylosis MRI LUMBAR SPINE WO [facility] Routine As patient did not get relief from the medial branch nerve block we will abort the planned to continue with the series and abort the RFA plan. Patient stated understanding. Patient sent stating that he did have physical therapy at [facility] which [facility]. Will get the notes from [facility] and order an MRI of the lumbar [...] other HCPs (not separately reported) Bertha Kaur APRN.CNP documented in this encounterTuscarawas Hospital04-11-2024 History of Present illness Narrative* Dhiraj Herr MD - 10/28/2023 11:45 AM EDT [facility] Date: 10/28/2023 Patient name: Elis Bills Physician [...] or double vision) Respiratory: Negative (No Cough, Nzvzvlvge-eq-tgluov, Dyspnea on exertion, wheezing) Cardiovascular: Negative (No [...] appropriate Assessment and Plan: As noted above [place] protocol documentation / Pre-Procedure Checklist: Consent: [...] MD Pain Management [facility] * Ian Fried LPN - 10/28/2023 9:38 AM EDT Review [...] patient is not nervous/anxious. documented in this encounterTuscarawas Hospital04-11-2024 Nurse Note* Jael Lamas LPN - [...] s procedure was performed in an [facility] Procedure room. Pause completed at each [...] Fried LPN - 10/28/2023 9:33 AM EDT Drone Operator's Name: mehreen Are you on a blood [...] to receive one? n documented in this encounterTuscarawas Hospital04-11-2024 Instructions* Patient Instructions* Jael Lamas LPN [...] emergency care and why. documented in this encounterTuscarawas Hospital04-02-2024 Miscellaneous Notes* Telephone Encounter - Dalia [...] two times a day. Patient Phone numbers: [phone] (home) Request is for script(s) to be escript to mail order [facility]. Dalia Merritt documented in this encounterTuscarawas Hospital03-25-2024 Miscellaneous Notes* Telephone Encounter - Edel [...] by mouth as needed. Patient Phone numbers: [phone] (home) Request is for script(s) to be escript to mail order [facility]. Edel Cramer documented in this encounterTuscarawas Hospital03-13-2024 Miscellaneous Notes* Telephone Encounter - Bertha Kaur APRN.CNP - 09/29/2023 12:29 PM EDT I will send in a medrol dose lalo to see if this will help. documented in this encounterTuscarawas Hospital03-07-2024 Miscellaneous Notes* Telephone Encounter - Albertina [...] No 9. Does this procedure require a taxi driver supervisor? Yes If yes, has patient been notified that a taxi driver supervisor is needed and must be present at [...] COVID vaccine.) Albertina Martin documented in this encounterTuscarawas Hospital03-07-2024 Instructions* Patient Instructions* Bertha Kaur APRN.CNP - 09/23/2023 8:52 AM EST Ice and heat as tolerated Activity as tolerated documented in this encounterTuscarawas Hospital03-07-2024 History of Present illness Narrative* Licha [...] not included. [facility] [place] [facility] Today's Date: 09/23/2023 Name: Elis Bills [...] done recent physical therapy. 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 No [...] guidance BILATERAL SIDES at L4-5 and L5-S1 Drone Operator Needed: Medial Branch Blocks - YES Anticoagulants: None, Plavix (7 days when hold needed) Relevant Allergies: None Additional Info: None Studies: None Functional Yarsanism: NONE Referrals: No additional considerations at present [...] decision making from today's date. Bertha Kaur APRN.DERRICK BUILDER Pain Management [facility] documented in this encounterTuscarawas Hospital02-15-2024 Miscellaneous Notes* Allied Health - Ermias Hahn, RT(R) - 09/02/2023 1:15 PM EST Radiology [...] PATIENT PRESENTS WITH AN IMPLANTABLE OR ATTACHED BUCKLE SEWER: No RADIOLOGY DEPARTMENT: CT; Exam(s) Completed: Chest PERIPHERAL IV DATA: Not applicable SIGNED BY: RT Chyna(R) September 02, 2023 1:16 PM documented in this encounterTuscarawas Hospital02-15-2024 Procedure note* Boo Camarillo RRT - 09/02/2023 11:54 AM ESTAssociated Order(s): NITRIC [...] 2023 TIME: 11:54 AM documented in this encounterTuscarawas Hospital02-15-2024 History of Present illness Narrative* Boo Camarillo RRT - 09/02/2023 11:52 AM EST PULM FUNCTION SMARTBLOCK: Provider: Shelton Flores MD Assisting Tech: Boo Camarillo RRT DLCO: 1 LV - Box: 1 Exhaled Nitric Oxide: 1 documented in this encounterTuscarawas Hospital02-08-2024 Miscellaneous Notes* Telephone Encounter - Lisa Allison RN - 08/26/2023 11:45 AM EST Images from the original note were not included. Shelton Flores MD [facility] Pul Nurse Pool Please instruct patient The blood [...] notified. Lisa Allison RN documented in this encounterTuscarawas Hospital02-06-2024 Miscellaneous Notes* Telephone Encounter - Lisa Allison RN - 08/24/2023 10:32 AM EST Images from the original note were not included. Shelton Flores MD [facility] Pul Nurse Pool Please instruct the [...] understanding Lisa Allison RN documented in this encounterTuscarawas Hospital02-06-2024 Miscellaneous Notes* Telephone Encounter - Dalia Merritt - 08/24/2023 8:12 AM EST Nebulizer order signed & faxed back to [employer]. Dalia Merritt documented in this encounterTuscarawas Hospital02-02-2024 Miscellaneous Notes* Telephone Encounter - Edel Cramer - 08/20/2023 3:02 PM EST Nebulizer order, office note, insurance cards and demo sheet faxed to [facility]. Edelhumphrey Cramer documented in this encounterTuscarawas Hospital02-02-2024 History of Present illness Narrative* Lorena Damon - 08/20/2023 9:58 AM EST PULM FUNCTION SMARTBLOCK: Provider: Shelton Flores MD Spirometry: 1 documented in this encounterTuscarawas HospitalDischar summary Author Antonio Parker [facility] Note Date/Time March 05, 2025 4: 26pm [facility] Medical Records Department [address] [place] [id number] Instructions for Home/Discharge Instructions 03/05/25 1620 MR#: [id number] Acct: [id number] Name: ELIS BILLS Tim Rep #:[id number] : 1960 64 From: Antonio Parker DO [...] Home Health Service 03/05/25 1626<Electronically signed by Antnoio Parker DO>Antonio Parker DO CC: STEVE Sanders; Dr. Armani Tolbert DO; Dr. Mechelle Maya DO; Dr. Maira Yeh MD; Dr. Pilar Gannon MD ~ Signed [facility] Work Phone: Evaluation noteNo assessment information available [facility] Work Phone: Evaluation note* Diagnosis Dyspnea, unspecified type documented in this encounter [facility] note* Diagnosis Chronic obstructive pulmonary disease, unspecified COPD type (HCC) [facility] Wheezing [facility] Diagnosis Lumbar spondylosis- Primary Lumbosacral spondylosis without myelopathy Chronic bilateral low back pain with sciatica, sciatica laterality unspecified [facility]* Diagnosis Chronic obstructive pulmonary disease, unspecified COPD type (HCC)- Primary [facility]* Diagnosis Lumbar spondylosis- Primary Lumbosacral spondylosis without myelopathy [facility]* Diagnosis Lumbar spondylosis- Primary Lumbosacral spondylosis without myelopathy Chronic bilateral low back pain with sciatica, sciatica laterality unspecified Spinal 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 Spinal stenosis, lumbar region, without neurogenic claudication [facility]* Diagnosis Abnormal finding of diagnostic imaging- Primary Other nonspecific (abnormal) findings on radiological and other examinations of body structure [facility]* Diagnosis Lung nodules- Primary Other nonspecific abnormal finding of lung field Severe persistent asthma, unspecified whether complicated Tobacco use disorder Morbid obesity (HCC) Morbid obesity [facility] Diagnosis Spinal 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 Spinal stenosis, lumbar region, without neurogenic claudication [facility]* Diagnosis Lumbar spondylosis- Primary Lumbosacral spondylosis without myelopathy Spinal 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 Spinal stenosis, lumbar region, without neurogenic claudication [facility]* Diagnosis Severe persistent asthma, unspecified whether complicated- Primary [facility]* Diagnosis Lumbar spondylosis- Primary Lumbosacral spondylosis without myelopathy [facility]* Diagnosis Lumbar spondylosis- Primary Lumbosacral spondylosis without myelopathy [facility]* Diagnosis Lung nodules Other nonspecific abnormal finding of lung field [facility]* Diagnosis Lung nodules Other nonspecific abnormal finding of lung field Severe persistent asthma, unspecified whether complicated [facility]* Diagnosis Lumbar spondylosis- Primary Lumbosacral spondylosis without myelopathy Spinal 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 Spinal stenosis, lumbar region, without neurogenic claudication Chronic bilateral low back pain with sciatica, sciatica laterality unspecified documented in this encounter [facility]* Diagnosis Lumbar radiculopathy- Primary Thoracic or lumbosacral neuritis or radiculitis, unspecified documented in this encounter [facility]* Diagnosis Lumbar spondylosis- Primary Lumbosacral spondylosis without myelopathy Lumbar radiculopathy Thoracic or lumbosacral neuritis or radiculitis, unspecified Spinal stenosis, lumbar region, without neurogenic claudication documented in this encounter [facility]* Diagnosis Low back pain, unspecified back pain laterality, unspecified chronicity, unspecified whether sciatica present- Primary documented in this encounter [facility]* Diagnosis Lumbar spondylosis- Primary Lumbosacral spondylosis without myelopathy documented in this encounter [facility]* Diagnosis Lumbar spondylosis- Primary Lumbosacral spondylosis without myelopathy Spinal stenosis, lumbar region, without neurogenic claudication documented in this encounter [facility]* Diagnosis Lumbar spondylosis- Primary Lumbosacral spondylosis without myelopathy [facility]* Diagnosis APPOINTMENT CANCELLED- Primary documented in this encounter [facility]* Diagnosis Spinal stenosis of lumbar region with neurogenic claudication- Primary Spinal stenosis, lumbar region, with neurogenic claudication documented in this encounter [facility]* Diagnosis Low back pain, unspecified back pain laterality, unspecified chronicity, unspecified whether sciatica present documented in this encounter [facility]* Diagnosis Spinal stenosis of lumbar region with neurogenic claudication- Primary Spinal stenosis, lumbar region, with neurogenic claudication Spinal stenosis of lumbar region with neurogenic claudication Spinal stenosis, lumbar region, with neurogenic claudication documented in this encounter [facility]* Diagnosis Pre-op examination- Primary Preoperative examination, [...] with neurogenic claudication documented in this encounter [facility]* Diagnosis Pre-op examination- Primary Preoperative [...] Assessment & Plan Note - Harvey Purvis APRN.DERRICK BUILDER - 07/10/2024 12:55 PM EST Associated Problem(s): Spinal stenosis of lumbar region with neurogenic claudication Surgery scheduled 07/28/23 * Assessment & Plan Note - Harvey Purvis APRN.CNP - 07/10/2024 12:55 PM EST Associated Problem(s): Pre-op examination Medical conditions which may affect the perioperative course were address in today's visit. documented in this encounter [facility]* Diagnosis Pre-op examination- Primary Preoperative examination, [...] with neurogenic claudication documented in this encounter [facility]* Diagnosis Pre-op examination- Primary Preoperative examination, [...] without neurogenic claudication documented in this encounter [facility] [facility] Diagnosis Pre-op examination- Primary Preoperative examination, [...] Other postprocedural status [facility] Diagnosis Pre-op examination- Primary Preoperative examination, [...] Other postprocedural status [facility] Diagnosis Pre-op examination- Primary Preoperative examination, [...] Other postprocedural status [facility] Diagnosis COPD exacerbation (HCC)- Primary Obstructive chronic bronchitis with exacerbation 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 artery (HCC) Exacerbation of intermittent asthma, unspecified asthma severity (HCC) Difficulty walking Difficulty in walking Decreased mobility and endurance COPD exacerbation (HCC) Obstructive chronic bronchitis with exacerbation Exacerbation of intermittent asthma, unspecified asthma severity (HCC) [facility] Diagnosis Chronic respiratory failure with hypoxia (HCC)- Primary Chronic respiratory failure [facility] Diagnosis COPD exacerbation (HCC)- Primary Obstructive [...] Aug us2024 12:37am Fever acute February 27, 025 12:37am Hyponatremia acute February 27, 2025 12:37am Leukocytosis acute February 27, 2025 12:37am Alcohol abuse chronic February 12:37am [facility] Work Phone: Reason for referral (narrative)* Diagnostic Procedure Only (Routine) - Pending Review Specialty Diagnoses / Procedures Referred By Bryant westfall Referred To Contact [facility] Diagnoses Lung nodules Severe persistent asthma, unspecified whether complicated Procedures HOME SLEEP APNEA TEST (HSAT) SLEEP STD AIRFLOW HRT RATE&O2 SAT EFFORT UNATT Shelton Flores MD [address] [place] [address] Neurological [place] [id number] Referral ID Status Reason Start Date Expiration Date Visits Requested Visits Authorized [id number] Pending Review Auto-Generat ed Referral 11/11/2023 11/10/2024 1 1 * Consult, Test, Treat (Routine) - Authorized Specialty Diagnoses / Procedures Referred By Bryant t Referred To Contact Allergy Diagnoses Severe persistent asthma, unspecified whether complicated Procedures CONSULT TO ALLERGY/IMMUNOLOGY OFFICE/OUTPATIENT [facility] 60 MINUTES Shelton Flores MD [address] [place] [address] Referral ID Status Reason Start Date Expiration Date Visits Requested Visits Authorized [id number] Authorized PCP Requested Referral 11/11/2023 11/10/2024 1 1 * Outpatient Procedure (Routine) - Authorized Specialty Diagnoses / Procedures [facility]erred To Contact [facility] [place] Diagnoses Lung nodules Severe persistent asthma, unspecified whether complicated Procedures ECHO ECHO TTHRC R-T 2D W/WOM-MODE COMPL SPEC&COLR D Shelton Flores MD [address] [place] [address] [facility] Vascular Call [address] [place] [address] Referral ID Status Reason Start Date Expiration Date Visits Requested Visits Authorized [id number] Authorized Auto-Generat ed Referral 11/11/2023 11/10/2024 1 1 * MRI/CT (Routine) - Authorized Specialty Diagnoses / Procedures Referred By Bryant Referred To Contact CT IMAGING Diagnoses Lung nodules Procedures CT CHEST WO IVCON DIAGNOSTIC COMPUTED TOMOGRAPHY THORAX W/O CNTRST Shelton Flores MD [address] [place] [address] Ct Imaging [facility] Referral ID Status Reason Start Date Expiration Date Visits Requested Visits Authorized [id number] Authorized Auto-Generat ed Referral 11/11/2023 12/10/2024 1 1 [facility] for referral (narrative)* Outpatient Procedure (Routine) - Closed Specialty Diagnoses / Procedures Referred By Bryant t Referred To Contact [facility] Diagnoses Lung nodules Severe persistent asthma, unspecified whether complicated Procedures ECHO ECHO TTHRC R-T 2D W/WOM-MODE COMPL SPEC&COLR D Shelton Flores MD [address] [place] [address] Heart [facility] V[facility] Call [address] [place] [address] Referral ID Status Reason Start Date Expiration Date V isits Requested Visits Authorized [id number] Closed Auto-Generate d Referral 11/11/2023 11/10/2024 1 1 [facility] for referral (narrative)* Diagnostic Procedure Only (Routine) - Authorized Specialty Diagnoses / Procedures Referred By Contac t Referred To Contact XR IMAGING Diagnoses Low back pain, unspecified back pain laterality, unspecified chronicity, unspecified whether sciatica present Procedures XR LUMBAR MOTION 4V AP/LAT/ FLEX/EXT RADEX SPINE LUMBOSACRAL MINIMUM 4 VIEWS Lois Hoang MD [address] [place] [address] [place] [address] Referral ID Status Reason Start Date Expiration Date Visits Requested Visits Authorized [id number] Authorized Auto-Generat ed Referral 04/06/2024 05/06/2025 1 1 * Diagnostic Procedure Only (Routine) - Authorized Specialty Diagnoses / Procedures Referred By Contac t Referred To Contact XR IMAGING Diagnoses Low back pain, unspecified back pain laterality, unspecified chronicity, unspecified whether sciatica present Procedures XR LUMBAR LIMITED 2V AP/LAT RADEX SPINE LUMBOSACRAL 2/3 VIEWS Lois Hoang MD [address] [place] [address] [place] [address] Referral ID Status Reason Start Date Expiration Date Visits Requested Visits Authorized [id number] Authorized Auto-Generat ed Referral 04/04/2024 05/04/2025 1 1 [facility] for referral (narrative)* Outpatient Procedure (Routine) - New Request Specialty Diagnoses / Procedures Referred By Contac t Referred To Contact [facility] [place] Diagnoses Spinal stenosis of lumbar region with neurogenic claudication Procedures ECG COMPLETE ECG ROUTINE ECG W/LEAST 12 LDS W/I&R Lois Hoang MD [address] [place] [address] [facility] [address] [place] [address] Referral ID Status Reason Start Date Expiration Date Visits Requested Visits Authorized [id number] New Request Auto-Generat ed Referral 07/14/2025 1 1 [facility] for referral (narrative)* Diagnostic Procedure Only (Routine) - Pending Review Specialty Diagnoses / Procedures Referred By Contac t Referred To Contact XR IMAGING Diagnoses S/P lumbar laminectomy Procedures XR LUMBAR LIMITED 2V FLEX/EXT RADEX SPINE LUMBOSACRAL 2/3 VIEWS Lois Hoang MD [address] [place] [address] [place] [address] Referral ID Status Reason Start Date Expiration Date Visits Requested Visits Authorized [id number] Pending Review Auto-Generat ed Referral 08/10/2024 09/09/2025 1 1 [facility] for referral (narrative)No reason for referral information [facility]WAv[facility] Work Phone: Reason for visit Narrative* Outpatient Procedure (Routine) - Closed Specialty Diagnoses / Procedures Referred By Contac t Referred To Contact [facility] [place] Diagnoses Lung nodules Severe persistent asthma, unspecified whether complicated Procedures ECHO ECHO TTHRC R-T 2D W/WOM-MODE COMPL SPEC&COLR D Shelton Flores MD [address] [place] [address] [facility] Vascular [place] [id number] [place] [address] Referral ID Status Reason Start Date Expiration Date V isits Requested Visits Authorized [id number] Closed Auto-Generate d Referral 11/11/2023 11/10/2024 1 1 [facility] for visit Narrative* Diagnostic Procedure Only (Routine) - Closed Specialty Diagnoses / Procedures Referred By Contac t Referred To Contact XR IMAGING Diagnoses Low back pain, unspecified back pain laterality, unspecified chronicity, unspecified whether sciatica present Procedures XR LUMBAR MOTION 4V AP/LAT/ FLEX/EXT RADEX SPINE LUMBOSACRAL MINIMUM 4 VIEWS Lois Hoang MD [address] [place] [address] [place] [address] Referral ID Status Reason Start Date Expiration Date V isits Requested Visits Authorized [id number] Closed Auto-Generate d Referral 04/06/2024 05/06/2025 1 1 [facility] for visit Narrative* Auth/Cert (Routine) Specialty Diagnoses / Procedures Referred By Contac t Referred To Contact Case Management Diagnoses Respiratory distress, hypoxia, pneumonia Procedures n/a Aura Wagner MD [facility] [address] Phone: tel: fax: [facility] [address] [place] [address] Phone: tel: Referral ID Status Reason Start Date Expiration Date Visits Re quested Visits Authorized [id number] 3 [facility] Summary Purpose Family History No Family [...] No April 22 9 7:56pm Power of Fur Comber No April 22, 2 019 7:56pm Advance Directive Response Recorded Date/ Time Living Will No March 22, 2 022 11:25am Power of Fur Comber No March 22, 2022 11:25am Latest Code Status on File Code Status Date Activated Date Inactivated Comments Full Code 04/23/2019 9:16 PM 04/24/2019 5:53 PM Question Answer Comments Documentation of decision process for this code status: Discussed with patient or surrogate. This is the code status chosen by the patient/surrogate. Advance Directive Response Recorded Date/ Time Living Will No March 22, 2 022 10:25am Power of Fur Comber No March 22, 2022 10:25am Date Activated [...] Do you have a Healthcare Power of Fur Comber? No February 26, 2025 8:56pm Advance Directive Response Recorded Date/ Time Do you have a Healthcare Power of Fur Comber? No February 27, 2025 2:01am Chief Complaint [...] SPINAL CANAL LUMBAR W/O CONTRAST MATERIAL Bertha Kaur APRN.DERRICK BUILDER [address] [place] [address] Mr Imaging [facility]95 Referral ID Status Reason Start Date Expiration Date Visits Requested Visits Authorized [id number] Pending Review Auto-Generat ed Referral 10/29/2023 11/27/2024 1 1 Referral ID Status Reason Start Date Expiration Date V isits Requested Visits Authorized [id number] Closed Auto-Generate d Referral 10/29/2023 11/27/2024 1 1 Specialty Diagnoses / Procedures Referred By Contac t Referred To Contact Neurosurgery Diagnoses Lumbar spondylosis Spinal stenosis, lumbar region, without neurogenic claudication Procedures CONSULT TO NEUROSURGERY OFFICE/OUTPATIENT NEW HIGH MDM 60 MINUTES Prebish, SEAN Cantu.DERRICK BUILDER [address] [place] [address] Oziel Edwards I, MD [address] [place], [place] [address] [address] Referral ID Status Reason Start Date Expiration Date Visits Requested Visits Authorized [id number] Authorized PCP Requested Referral 03/30/2024 06/28/2024 1 1 Specialty Diagnoses / Procedures Referred By Contac t Referred To Contact [facility] Diagnoses S/P lumbar laminectomy Procedures CONSULT TO PHYSICAL THERAPY PHYSICAL THERAPY EVALUATION HIGH COMPLEX 45 MINS Lois Hoang MD [address] [place], [place] [address] [place] [address] [facility] Call [address] [place] [address] Referral ID Status Reason Start Date Expiration Date Visits Requested Visits Authorized [id number] Pending Review Auto-Generat ed Referral 08/25/2024 08/25/2025 1 1 Additional Source Comments (unrecognized sect ion and content) No Status Records FoundNo Status Records FoundNo Status Records FoundNo Status Records FoundNo Status Records FoundNo Status Records Found INFORMATION SOURCE (unrecogn ized section and content) DATE CREATED AUTHOR 12/30/2019 [facility] ([place]) DATE CREATED AUTHOR AUTHOR'S ORGANIZ ATION 09/06/2023 [facility] DATE CREATED AUTHOR AUTHOR'S ORGANIZ ATION 10/30/2024 [facility] DATE CREATED AUTHOR AUTHOR'S ORGANIZ ATION 11/21/2024 [facility] DATE CREATED AUTHOR AUTHOR'S ORGANIZ ATION 03/09/2025 [facility] DATE CREATED AUTHOR AUTHOR'S ORGANIZ ATION 03/10/2025 [facility] Goals (unrecognized section and content) [...] Primary Care Provider Active Dr. Juarez Luz , DO Attending Provider Active Bar Waiter/Waitress Relationship Specialty Start Date End Date Pilar Lanza DO [address] [place] [address] PCP - General Family Medicine 06/14/23 Bar Waiter/Waitress Relationship Specialty Start Date End Date Pilar Lanza DO [address] [place] [address] PCP - General Family Medicine 06/14/23 Bar Waiter/Waitress Relationship Specialty Start Date End Date Pilar Lanza DO [address] [place] [address] PCP - General Family Medicine 06/14/23 Bar Waiter/Waitress Relationship Specialty Start Date End Date Pilar Lanza DO [address] [place] [address] PCP - General Family Medicine 06/14/23 Bar Waiter/Waitress Relationship Specialty Start Date End Date Pilar Lanza DO [address] [place] [address] PCP - General Family Medicine 06/14/23 Bar Waiter/Waitress Relationship Specialty Start Date End Date Pilar Lanza DO [address] [place] [address] PCP - General Family Medicine 06/14/23 Bar Waiter/Waitress Relationship Specialty Start Date End Date Pilar Lanza DO [address] [place] [address] PCP - General Family Medicine 06/14/23 Bar Waiter/Waitress Relationship Specialty Start Date End Date Pilar Lanza DO [address] [place] [address] PCP - General Family Medicine 06/14/23 Bar Waiter/Waitress Relationship Specialty Start Date End Date Pilar Lanza DO [address] [place] [address] PCP - General Family Medicine 06/14/23 Bar Waiter/Waitress Relationship Specialty Start Date End Date Pilar Lanza DO [address] [place] [address] PCP - General Family Medicine 06/14/23 Bar Waiter/Waitress Relationship Specialty Start Date End Date Pilar Lanza DO [address] [place] [address] PCP - General Family Medicine 06/14/23 Bar Waiter/Waitress Relationship Specialty Start Date End Date Pilar Lanza DO [address] [place] [address] PCP - General Family Medicine 06/14/23 Bar Waiter/Waitress Relationship Specialty Start Date End Date Pilar Lanza DO [address] [place] [address] PCP - General Family Medicine 06/14/23 Bar Waiter/Waitress Relationship Specialty Start Date End Date Pilar Lanza DO [address] [place] [address] PCP - General Family Medicine 06/14/23 Bar Waiter/Waitress Relationship Specialty Start Date End Date Pilar Lanza DO [address] [place] [address] PCP - General Family Medicine 06/14/23 Bar Waiter/Waitress Relationship Specialty Start Date End Date Pilar Lanza DO [address] [place] [address] PCP - General Family Medicine 06/14/23 Bar Waiter/Waitress Relationship Specialty Start Date End Date Pilar Lanza DO [address] [place] [address] PCP - General Family Medicine 06/14/23 Bar Waiter/Waitress Relationship Specialty Start Date End Date Pilar Lanza DO [address] [place] [address] PCP - General Family Medicine 06/14/23 Bar Waiter/Waitress Relationship Specialty Start Date End Date Pilar Lanza DO [address] [place] [address] PCP - General Family Medicine 06/14/23 Bar Waiter/Waitress Relationship Specialty Start Date End Date Pilar Lanza DO [address] [place] [address] PCP - General Family Medicine 06/14/23 Bar Waiter/Waitress Relationship Specialty Start Date End Date Pilar Lanza DO [address] [place] [address] PCP - General Family Medicine 06/14/23 Bar Waiter/Waitress Relationship Specialty Start Date End Date Pilar Lanza DO [address] [place] [address] PCP - General Family Medicine 06/14/23 Bar Waiter/Waitress Relationship Specialty Start Date End Date Pilar Lanza DO [address] [place] [address] PCP - General Family Medicine 06/14/23 Bar Waiter/Waitress Relationship Specialty Start Date End Date Pilar Lanza DO [address] [place] [address] PCP - General Family Medicine 06/14/23 Bar Waiter/Waitress Relationship Specialty Start Date End Date Pilar Lanza DO [address] [place] [address] PCP - General Family Medicine 06/14/23 Bar Waiter/Waitress Relationship Specialty Start Date End Date Pilar Lanza DO [address] [place] [address] PCP - General Family Medicine 06/14/23 Bar Waiter/Waitress Relationship Specialty Start Date End Date Pilar Lanza DO [address] [place] [address] PCP - General Family Medicine 06/14/23 Bar Waiter/Waitress Relationship Specialty Start Date End Date Pilar Lanza DO [address] [place] [address] PCP - General Family Medicine 06/14/23 Bar Waiter/Waitress Relationship Specialty Start Date End Date Pilar Lanza DO [address] [place] [address] PCP - General Family Medicine 06/14/23 Bar Waiter/Waitress Relationship Specialty Start Date End Date Pilar Lanza DO [address] [place] [address] PCP - General Family Medicine 06/14/23 Bar Waiter/Waitress Relationship Specialty Start Date End Date Pilar Lanza DO [address] [place] [address] PCP - General Family Medicine 06/14/23 Bar Waiter/Waitress Relationship Specialty Start Date End Date Pilar Lanza DO [address] [place] [address] PCP - General Family Medicine 06/14/23 Bar Waiter/Waitress Relationship Specialty Start Date End Date Pilar Lanza DO [address] [place] [address] (Fax) PCP - General Family Medicine 06/14/23 Bar Waiter/Waitress Relationship Specialty Start Date End Date Pilar Lanza DO [address] [place] [address] (Fax) PCP - General Family Medicine 06/14/23 Bar Waiter/Waitress Relationship Specialty Start Date End Date Pilar Lanza DO [address] [place] [address] PCP - General Family Medicine 06/14/23 Bar Waiter/Waitress Relationship Specialty Start Date End Date Pilar Lanza DO [address] [place] [address] PCP - General Family Medicine 06/14/23 Bar Waiter/Waitress Relationship Specialty Start Date End Date Pilar Lanza DO [address] [place] [address] PCP - General Family Medicine 06/14/23 Bar Waiter/Waitress Relationship Specialty Start Date End Date Brooke Wu RN [address] [facility] [address] [place] [id number] Frame Stripper 10/27/24 Bar Waiter/Waitress Relationship Specialty Start Date End Date Brooke Wu RN [address] [facility] [place] [address] Frame Stripper 10/27/24 Bar Waiter/Waitress Relationship Specialty Start Date End Date Brooke Wu RN [address] [facility] [address] [place] [id number] Frame Stripper 10/27/24 Bar Waiter/Waitress Relationship Specialty Start Date End Date Brooke Wu RN [address] [facility] [address] [place] [id number] Frame Stripper 10/27/24 Bar Waiter/Waitress Relationship Specialty Start Date End Date Pilar Lanza DO [address] [place] [address] PCP - General Family Medicine 06/14/23 Bar Waiter/Waitress Relationship Specialty Start Date End Date Veronica Butt APRN-DERRICK BUILDER [address] [place] [address] NURSE PRACTITIONER Pulmonary Medicine 01/20/25 Team Status: Active Member [...] February 27, 2025 End: March 05, 2025 CARMEN Dailey-C Primary Care Provider Active Start: February 27, [...] February 27, 2025 Dr. Jose A Anthony , Other Provider Active St art: February 27, 2025 Dr. Ewa Merida MD Other Provider Active Start: February 27, 2025 Dr. Vincenzo Hernandez MD Other Provider Active St art: February 27, 2025 Dr. Raul Jack , Other Provider Active Start: February 27, 2025 [...] Active Member Role/Relationship Status Dates Dr. Austin Perze DO Emergency Provider Active Start: March 01, [...] t: March 01, 2025 Dr. Sanya Reese DO Other Provider Active Start : March 01, [...] Active Start: March 01, 2025 Dr. Maira Yeh MD Other Provider Active St art: March 01, 2025 Dr. Pilar Gannon MD Other Provider Active Start: March 01, 2025 Team Status: Active Member Role/Relationship Status Dates Dr. Austin Perez DO Emergency Provider Active Start: March 02, 2025 Anna MORALES PA-C Primary Care Provider Active Start: March 02, 2025 Dr. Mehcelle Maya DO Admit Provider Active Start: March [...] March 02, 2025 Dr. Jose A Anthony DO Other Provider Active St art: March 02, 2025 Dr. Ewa Merida MD Other Provider Active Start: March 02, 2025 Dr. Vincenzo Hernandez MD Other Provider Active St art: March 02, 2025 Dr. Raul Jack DO Other Provider Active Start: March 02, [...] t: March 03, 2025 Dr. Sanya Reese DO Other Provider Active Start : March 03, [...] Emergency Provider Active Start: March 04, 2025 CARMEN Dailey-Cosmo Primary Care Provider Active Start: March 04, 2025 Dr. Mechelle Maya DO Admit Provider Active Start: March 04, 2025 Dr. Mechelle Maya DO Other Provider Active Start: March 04, 2025 Dr. Maira Yeh MD Other Provider Active St art: March 04, 2025 Dr. Antonio Parker DO Attending Provider Active Start: March 04, 2025 Dr. Antonio Parker DO Other Provider Active S tart: March 04, 2025 Dr. Armani Tolbert DO Other Provider Active Start: March 04, 2025 Dr. Pilar Gannon MD Other Provider Active Start: March 04, 2025 Dr. Andrew Bryan MD Other Provider Active Start: March 04, 2025 Dr. Tj Harris MD Other Provider Active Start: March 04, 2025 Dr. Mao Carmona MD Other Provider Active Star t: March 04, 2025 Dr. Sanya Reese DO Other Provider [...] March 04, 2025 Dr. Jose A Anthony DO Other Provider Active St art: March 04, 2025 Dr. Ewa Merida MD Other Provider Active Start: March 04, 2025 Dr. Vincenzo Hernandez MD Other Provider Active St art: March 04, 2025 Dr. Raul Jack DO Other Provider Active Start: March 04, 2025 Dr. Gamal Calero MD Other Provider Active Star t: March 04, 2025 Dr. 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 Relationship Specialty Start Date End Date Veronica ButtAMALIA [address] [place] [address] NURSE PRACTITIONER Pulmonary Medicine 01/20/25 Source Comments (unrecognize d section and content) In the event this informatio n is protected by the [facility] Confidentiality of Alcohol and Drug Abuse Patient Records regulations: The Federal rules restrict any use of the information to criminally investigate or prosecute any alcohol or drug abuse patient.[facility] the event this information is protected by the Federal Confidentiality of Alcohol and Drug Abuse Patient Records regulations: The Federal rules restrict any use of the information to criminally investigate or prosecute any alcohol or drug abuse patient.[facility] Hospital[facility] the event this information is protected by the Federal Confidentiality of Alcohol and Drug Abuse Patient Records regulations: The Federal rules restrict any use of the information to criminally investigate or prosecute any alcohol or drug abuse patient.[facility] Hospital[facility] the event this information is protected by the Federal Confidentiality of Alcohol and Drug Abuse Patient Records regulations: The Federal rules restrict any use of the information to criminally investigate or prosecute any alcohol or drug abuse patient.[facility] Hospital[facility] the event this information is protected by the Federal Confidentiality of Alcohol and Drug Abuse Patient Records regulations: The Federal rules restrict any use of the information to criminally investigate or prosecute any alcohol or drug abuse patient.[facility] Hospital[facility] the event this information is protected by the Federal Confidentiality of Alcohol and Drug Abuse Patient Records regulations: The Federal rules restrict any use of the information to criminally investigate or prosecute any alcohol or drug abuse patient.[facility] Hospital[facility] the event this information is protected by the Federal Confidentiality of Alcohol and Drug Abuse Patient Records regulations: The Federal rules restrict any use of the information to criminally investigate or prosecute any alcohol or drug abuse patient.[facility] Hospital[facility] the event this information is protected by the Federal Confidentiality of Alcohol and Drug Abuse Patient Records regulations: The Federal rules restrict any use of the information to criminally investigate or prosecute any alcohol or drug abuse patient.[facility] HospitalIn the event this information is protected by the Federal Confidentiality of Alcohol and Drug Abuse Patient Records regulations: The Federal rules restrict any use of the information to criminally investigate or prosecute any alcohol or drug abuse patient.[facility] HospitalIn the event this information is protected by the Federal Confidentiality of Alcohol and Drug Abuse Patient Records regulations: The Federal rules restrict any use of the information to criminally investigate or prosecute any alcohol or drug abuse patient.[facility] HospitalIn the event this information is protected by the Federal Confidentiality of Alcohol and Drug Abuse Patient Records regulations: The Federal rules restrict any use of the information to criminally investigate or prosecute any alcohol or drug abuse patient.[facility] HospitalIn the event this information is protected by the Federal Confidentiality of Alcohol and Drug Abuse Patient Records regulations: The Federal rules restrict any use of the information to criminally investigate or prosecute any alcohol or drug abuse patient.[facility] HospitalIn the event this information is protected by the Federal Confidentiality of Alcohol and Drug Abuse Patient Records regulations: The Federal rules restrict any use of the information to criminally investigate or prosecute any alcohol or drug abuse patient.[facility] HospitalIn the event this information is protected by the Federal Confidentiality of Alcohol and Drug Abuse Patient Records regulations: The Federal rules restrict any use of the information to criminally investigate or prosecute any alcohol or drug abuse patient.[facility] HospitalIn the event this information is protected by the Federal Confidentiality of Alcohol and Drug Abuse Patient Records regulations: The Federal rules restrict any use of the information to criminally investigate or prosecute any alcohol or drug abuse patient.[facility] HospitalIn the event this information is protected by the Federal Confidentiality of Alcohol and Drug Abuse Patient Records regulations: The Federal rules restrict any use of the information to criminally investigate or prosecute any alcohol or drug abuse patient.[facility] HospitalIn the event this information is protected by the Federal Confidentiality of Alcohol and Drug Abuse Patient Records regulations: The Federal rules restrict any use of the information to criminally investigate or prosecute any alcohol or drug abuse patient.[facility] HospitalIn the event this information is protected by the Federal Confidentiality of Alcohol and Drug Abuse Patient Records regulations: The Federal rules restrict any use of the information to criminally investigate or prosecute any alcohol or drug abuse patient.[facility] HospitalIn the event this information is protected by the Federal Confidentiality of Alcohol and Drug Abuse Patient Records regulations: The Federal rules restrict any use of the information to criminally investigate or prosecute any alcohol or drug abuse patient.[facility] HospitalIn the event this information is protected by the Federal Confidentiality of Alcohol and Drug Abuse Patient Records regulations: The Federal rules restrict any use of the information to criminally investigate or prosecute any alcohol or drug abuse patient.[facility] HospitalIn the event this information is protected by the Federal Confidentiality of Alcohol and Drug Abuse Patient Records regulations: The Federal rules restrict any use of the information to criminally investigate or prosecute any alcohol or drug abuse patient.[facility] HospitalIn the event this information is protected by the Federal Confidentiality of Alcohol and Drug Abuse Patient Records regulations: The Federal rules restrict any use of the information to criminally investigate or prosecute any alcohol or drug abuse patient.[facility] HospitalIn the event this information is protected by the Federal Confidentiality of Alcohol and Drug Abuse Patient Records regulations: The Federal rules restrict any use of the information to criminally investigate or prosecute any alcohol or drug abuse patient.[facility] HospitalIn the event this information is protected by the Federal Confidentiality of Alcohol and Drug Abuse Patient Records regulations: The Federal rules restrict any use of the information to criminally investigate or prosecute any alcohol or drug abuse patient.[facility] HospitalIn the event this information is protected by the Federal Confidentiality of Alcohol and Drug Abuse Patient Records regulations: The Federal rules restrict any use of the information to criminally investigate or prosecute any alcohol or drug abuse patient.[facility] HospitalIn the event this information is protected by the Federal Confidentiality of Alcohol and Drug Abuse Patient Records regulations: The Federal rules restrict any use of the information to criminally investigate or prosecute any alcohol or drug abuse patient.[facility] HospitalIn the event this information is protected by the Federal Confidentiality of Alcohol and Drug Abuse Patient Records regulations: The Federal rules restrict any use of the information to criminally investigate or prosecute any alcohol or drug abuse patient.[facility] HospitalIn the event this information is protected by the Federal Confidentiality of Alcohol and Drug Abuse Patient Records regulations: The Federal rules restrict any use of the information to criminally investigate or prosecute any alcohol or drug abuse patient.[facility] HospitalIn the event this information is protected by the Federal Confidentiality of Alcohol and Drug Abuse Patient Records regulations: The Federal rules restrict any use of the information to criminally investigate or prosecute any alcohol or drug abuse patient.[facility] HospitalIn the event this information is protected by the Federal Confidentiality of Alcohol and Drug Abuse Patient Records regulations: The Federal rules restrict any use of the information to criminally investigate or prosecute any alcohol or drug abuse patient.[facility] HospitalIn the event this information is protected by the Federal Confidentiality of Alcohol and Drug Abuse Patient Records regulations: The Federal rules restrict any use of the information to criminally investigate or prosecute any alcohol or drug abuse patient.[facility] HospitalIn the event this information is protected by the Federal Confidentiality of Alcohol and Drug Abuse Patient Records regulations: The Federal rules restrict any use of the information to criminally investigate or prosecute any alcohol or drug abuse patient.[facility] HospitalIn the event this information is protected by the Federal Confidentiality of Alcohol and Drug Abuse Patient Records regulations: The Federal rules restrict any use of the information to criminally investigate or prosecute any alcohol or drug abuse patient.[facility] HospitalIn the event this information is protected by the Federal Confidentiality of Alcohol and Drug Abuse Patient Records regulations: The Federal rules restrict any use of the information to criminally investigate or prosecute any alcohol or drug abuse patient.[facility] HospitalIn the event this information is protected by the Federal Confidentiality of Alcohol and Drug Abuse Patient Records regulations: The Federal rules restrict any use of the information to criminally investigate or prosecute any alcohol or drug abuse patient.[facility] HospitalIn the event this information is protected by the Federal Confidentiality of Alcohol and Drug Abuse Patient Records regulations: The Federal rules restrict any use of the information to criminally investigate or prosecute any alcohol or drug abuse patient.[facility] HospitalIn the event this information is protected by the Federal Confidentiality of Alcohol and Drug Abuse Patient Records regulations: The Federal rules restrict any use of the information to criminally investigate or prosecute any alcohol or drug abuse patient.[facility] HospitalIn the event this information is protected by the Federal Confidentiality of Alcohol and Drug Abuse Patient Records regulations: The Federal rules restrict any use of the information to criminally investigate or prosecute any alcohol or drug abuse patient.[facility] HospitalIn the event this information is protected by the Federal Confidentiality of Alcohol and Drug Abuse Patient Records regulations: The Federal rules restrict any use of the information to criminally investigate or prosecute any alcohol or drug abuse patient.[facility] HospitalIn the event this information is protected by the Federal Confidentiality of Alcohol and Drug Abuse Patient Records regulations: The Federal rules restrict any use of the information to criminally investigate or prosecute any alcohol or drug abuse patient.[facility] HospitalIn the event this information is protected by the Federal Confidentiality of Alcohol and Drug Abuse Patient Records regulations: The Federal rules restrict any use of the information to criminally investigate or prosecute any alcohol or drug abuse patient.[facility] HospitalIn the event this information is protected by the Federal Confidentiality of Alcohol and Drug Abuse Patient Records regulations: The Federal rules restrict any use of the information to criminally investigate or prosecute any alcohol or drug abuse patient.[facility] HospitalIn the event this information is protected by the Federal Confidentiality of Alcohol and Drug Abuse Patient Records regulations: The Federal rules restrict any use of the information to criminally investigate or prosecute any alcohol or drug abuse patient.[facility] HospitalIn the event this information is protected by the Federal Confidentiality of Alcohol and Drug Abuse Patient Records regulations: The Federal rules restrict any use of the information to criminally investigate or prosecute any alcohol or drug abuse patient.[facility] HospitalIn the event this information is protected by the Federal Confidentiality of Alcohol and Drug Abuse Patient Records regulations: The Federal rules restrict any use of the information to criminally investigate or prosecute any alcohol or drug abuse patient.[facility] HospitalIn the event this information is protected by the Federal Confidentiality of Alcohol and Drug Abuse Patient Records regulations: The Federal rules restrict any use of the information to criminally investigate or prosecute any alcohol or drug abuse patient.[facility] HospitalIn the event this information is protected by the Federal Confidentiality of Alcohol and Drug Abuse Patient Records regulations: The Federal rules restrict any use of the information to criminally investigate or prosecute any alcohol or drug abuse patient.[facility] HospitalIn the event this information is protected by the Federal Confidentiality of Alcohol and Drug Abuse Patient Records regulations: The Federal rules restrict any use of the information to criminally investigate or prosecute any alcohol or drug abuse patient.[facility] HospitalIn the event this information is protected by the Federal Confidentiality of Alcohol and Drug Abuse Patient Records regulations: The Federal rules restrict any use of the information to criminally investigate or prosecute any alcohol or drug abuse patient.[facility] HospitalIn the event this information is protected by the Federal Confidentiality of Alcohol and Drug Abuse Patient Records regulations: The Federal rules restrict any use of the information to criminally investigate or prosecute any alcohol or drug abuse patient.[facility] HospitalIn the event this information is protected by the Federal Confidentiality of Alcohol and Drug Abuse Patient Records regulations: The Federal rules restrict any use of the information to criminally investigate or prosecute any alcohol or drug abuse patient.[facility] HospitalIn the event this information is protected by the Federal Confidentiality of Alcohol and Drug Abuse Patient Records regulations: The Federal rules restrict any use of the information to criminally investigate or prosecute any alcohol or drug abuse patient.[facility] HospitalIn the event this information is protected by the Federal Confidentiality of Alcohol and Drug Abuse Patient Records regulations: The Federal rules restrict any use of the information to criminally investigate or prosecute any alcohol or drug abuse patient.[facility] HospitalIn the event this information is protected by the Federal Confidentiality of Alcohol and Drug Abuse Patient Records regulations: The Federal rules restrict any use of the information to criminally investigate or prosecute any alcohol or drug abuse patient.[facility] HospitalIn the event this information is protected by the Federal Confidentiality of Alcohol and Drug Abuse Patient Records regulations: The Federal rules restrict any use of the information to criminally investigate or prosecute any alcohol or drug abuse patient.[facility] HospitalIn the event this information is protected by the Federal Confidentiality of Alcohol and Drug Abuse Patient Records regulations: The Federal rules restrict any use of the information to criminally investigate or prosecute any alcohol or drug abuse patient.[facility] HospitalIn the event this information is protected by the Federal Confidentiality of Alcohol and Drug Abuse Patient Records regulations: The Federal rules restrict any use of the information to criminally investigate or prosecute any alcohol or drug abuse patient.[facility] HospitalIn the event this information is protected by the Federal Confidentiality of Alcohol and Drug Abuse Patient Records regulations: The Federal rules restrict any use of the information to criminally investigate or prosecute any alcohol or drug abuse patient.[facility] HospitalIn the event this information is protected by the Federal Confidentiality of Alcohol and Drug Abuse Patient Records regulations: The Federal rules restrict any use of the information to criminally investigate or prosecute any alcohol or drug abuse patient.[facility] HospitalIn the event this information is protected by the Federal Confidentiality of Alcohol and Drug Abuse Patient Records regulations: The Federal rules restrict any use of the information to criminally investigate or prosecute any alcohol or drug abuse patient.[facility] HospitalIn the event this information is protected by the Federal Confidentiality of Alcohol and Drug Abuse Patient Records regulations: The Federal rules restrict any use of the information to criminally investigate or prosecute any alcohol or drug abuse patient.[facility] HospitalIn the event this information is protected by the Federal Confidentiality of Alcohol and Drug Abuse Patient Records regulations: The Federal rules restrict any use of the information to criminally investigate or prosecute any alcohol or drug abuse patient.[facility] HospitalIn the event this information is protected by the Federal Confidentiality of Alcohol and Drug Abuse Patient Records regulations: The Federal rules restrict any use of the information to criminally investigate or prosecute any alcohol or drug abuse patient.[facility] HospitalIn the event this information is protected by the Federal Confidentiality of Alcohol and Drug Abuse Patient Records regulations: The Federal rules restrict any use of the information to criminally investigate or prosecute any alcohol or drug abuse patient.[facility] HospitalIn the event this information is protected by the Federal Confidentiality of Alcohol and Drug Abuse Patient Records regulations: The Federal rules restrict any use of the information to criminally investigate or prosecute any alcohol or drug abuse patient.[facility] HospitalIn the event this information is protected by the Federal Confidentiality of Alcohol and Drug Abuse Patient Records regulations: The Federal rules restrict any use of the information to criminally investigate or prosecute any alcohol or drug abuse patient.[facility] HospitalIn the event this information is protected by the Federal Confidentiality of Alcohol and Drug Abuse Patient Records regulations: The Federal rules restrict any use of the information to criminally investigate or prosecute any alcohol or drug abuse patient.[facility] HospitalIn the event this information is protected by the Federal Confidentiality of Alcohol and Drug Abuse Patient Records regulations: The Federal rules restrict any use of the information to criminally investigate or prosecute any alcohol or drug abuse patient.[facility] HospitalIn the event this information is protected by the Federal Confidentiality of Alcohol and Drug Abuse Patient Records regulations: The Federal rules restrict any use of the information to criminally investigate or prosecute any alcohol or drug abuse patient.[facility] HospitalIn the event this information is protected by the Federal Confidentiality of Alcohol and Drug Abuse Patient Records regulations: The Federal rules restrict any use of the information to criminally investigate or prosecute any alcohol or drug abuse patient.[facility] HospitalIn the event this information is protected by the Federal Confidentiality of Alcohol and Drug Abuse Patient Records regulations: The Federal rules restrict any use of the information to criminally investigate or prosecute any alcohol or drug abuse patient.[facility] HospitalIn the event this information is protected by the Federal Confidentiality of Alcohol and Drug Abuse Patient Records regulations: The Federal rules restrict any use of the information to criminally investigate or prosecute any alcohol or drug abuse patient.[facility] HospitalIn the event this information is protected by the Federal Confidentiality of Alcohol and Drug Abuse Patient Records regulations: The Federal rules restrict any use of the information to criminally investigate or prosecute any alcohol or drug abuse patient.[facility] HospitalIn the event this information is protected by the Federal Confidentiality of Alcohol and Drug Abuse Patient Records regulations: The Federal rules restrict any use of the information to criminally investigate or prosecute any alcohol or drug abuse patient.[facility] HospitalIn the event this information is protected by the Federal Confidentiality of Alcohol and Drug Abuse Patient Records regulations: The Federal rules restrict any use of the information to criminally investigate or prosecute any alcohol or drug abuse patient.[facility] Reason for Visit (unrecogniz ed section and content) Reason Comments Spirometry Specialty Diagnoses / Procedures Referred By Contac t Referred To Contact [facility] Diagnoses Dyspnea, unspecified type Procedures SPIROMETRY WITH DILATOR IF OBSTRUCTED BRNCDILAT RSPSE SPMTRY PRE&POST-BRNCDILAT ADMN Shelton Flores MD [address] [place] [address] [address] Referral ID Status Reason Start Date Expiration Date V isits Requested Visits Authorized [id number] Closed Auto-Generate d Referral 08/13/2023 09/11/2024 1 1 Reason Comments FYI-No Action Needed Reason Comments Results Specialty Diagnoses / Procedures Referred By Contac t Referred To [facility] [place] Diagnoses Chronic obstructive pulmonary disease, unspecified COPD type (HCC) Procedures LUNG DIFFUSION CAPACITY (DLCO) DIFFUSING CAPACITY Shelton Flores MD [address] [place] [address] [address] Referral ID Status Reason Start Date Expiration Date V isits Requested Visits Authorized [id number] Closed Auto-Generate d Referral 08/20/2023 09/18/2024 1 1 Specialty Diagnoses / Procedures Referred By Contac t Referred To [facility] [place] Diagnoses Chronic obstructive pulmonary disease, unspecified COPD type (HCC) Procedures LUNG VOLUMES Shelton Flores MD [address] [place] [address] [address] Referral ID Status Reason Start Date Expiration Date V isits Requested Visits Authorized [id number] Closed Auto-Generate d Referral 08/20/2023 07/18/2024 1 1 Specialty Diagnoses / Procedures Referred By Contac t Referred To [facility] [place] Diagnoses Chronic obstructive pulmonary disease, unspecified COPD type (HCC) Procedures NITRIC OXIDE, EXHALED NITRIC OXIDE GAS DETERMINATION Shelton Flores MD [address] [place] [address] [address] Referral ID Status Reason Start Date Expiration Date V isits Requested Visits Authorized [id number] Closed Auto-Generate d Referral 08/20/2023 09/18/2024 1 1 Specialty Diagnoses / Procedures Referred By Contac t Referred To Contact CT IMAGING Diagnoses Wheezing Procedures CT CHEST WO IVCON DIAGNOSTIC COMPUTED TOMOGRAPHY THORAX W/O CNTRST Shelton Flores MD [address] [place] [address] [place] [address] Referral ID Status Reason Start Date Expiration Date V isits Requested Visits Authorized [id number] Closed Auto-Generate d Referral 08/20/2023 10/03/2023 1 [...] FACET JT LMBR/SAC 2ND LEVEL PROCEDURE 20 Bertha Kaur, SUPERVISING BROKER.DERRICK BUILDER [address] [place] [address] Dhiraj Herr MD [address] [address] Referral ID Status Reason Start Date Expiration Date Visits Re quested Visits Authorized [id number] Closed 07/19/2023 07/18/2024 1 1 Reason Comments Follow Up Reason Comments Wheezing Reason Comments Radiology MRI Specialty Diagnoses / Procedures Referred By Contac t Referred To Contact [facility] IMAG[facility] Diagnoses Spinal 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 Procedures MRI LUMBAR SPINE WO IVCON MRI SPINAL CANAL LUMBAR W/O CONTRAST MATERIAL Bertha Kaur, SUPERVISING BROKER.[employer]ERRICK BUILDER [address] [place] [address] [place] [address] Referral ID Status Reason Start Date Expiration Date V isits Requested Visits Authorized [id number] Closed Auto-Generate d Referral 10/29/2023 11/27/2024 1 [...] LMBR/SAC 2ND LEVEL PROCEDURE 20 Prebish, Bertha, SUPERVISING BROKER.DERRICK BUILDER [address] [place] [address] Dhiraj Herr MD [address] [facility] [address] [place] [address] Referral ID Status Reason Start Date Expiration Date Visits Re quested Visits Authorized [id number] Closed 12/16/2023 07/18/2024 1 1 Reason Comments Procedure Follow Up MBB Reason Comments Follow Up MBB Specialty Diagnoses / Procedures Referred By Contac t Referred To Contact CT IMAGING Diagnoses Lung nodules Procedures CT CHEST WO IVCON DIAGNOSTIC COMPUTED TOMOGRAPHY THORAX W/O CNTRST Shelton Flores MD [address] [place] [address] [place] [address] Referral ID Status Reason Start Date Expiration Date V isits Requested Visits Authorized [id number] Closed Auto-Generate d Referral 11/11/2023 12/10/2024 1 1 Reason Onset Date Comments Refill Request 01/06/2024 Reason Onset Date Comments Refill Request 01/11/2024 Reason Comments Illness Marie R N covering urgent pulm sypmtom calls [...] LMBR/SAC W/IMG GDN PROCEDURE Everton Sanchez MD [address] [address] Everton Sanchez MD [address] [address] Referral ID Status Reason Start Date Expiration Date Visits Requested Visits Authorized [id number] Appeal Pending Clearance Not Met - Admin/Chair [...] LMBR/SAC 2ND LEVEL PROCEDURE 20 Prebish, Bertha, SUPERVISING BROKER.[employer]ERRICK BUILDER [address] [place] [address] Everton Sanchez MD [address] [address] Referral ID Status Reason Start Date Expiration Date Visits Re quested Visits Authorized [id number] Closed 04/26/2024 10/23/2024 1 1 Reason Comments Follow Up post procedure Reason Comments Erroneous encounter-disregard Reason Comments Injections MBB Back Pain LOWER BILATERAL Specialty Diagnoses / Procedures Referred By Contac t Referred To Contact PAIN MANAGEMENT Diagnoses Spondylosis without myelopathy or radiculopathy, lumbar region Procedures DSTR NROLYTC AGNT PARVERTEB FCT SNGL LMBR/SACRAL DSTR NROLYTC AGNT PARVERTEB FCT ADDL LMBR/SACRAL Prebish, Bertha, SUPERVISING BROKER.DERRICK BUILDER [address] [address] Spine [facility] [place] [address] [facility] [address] [place] [address] Referral ID Status Reason Start Date Expiration Date Visits Re quested Visits Authorized [id number] Closed 05/08/2024 11/04/2024 1 1 Reason Comments Appointment Cancelled Reason Comments Established Patient Reason Comments Radiology CT Specialty Diagnoses / Procedures Referred By Contac t Referred To Contact Radiology / RADIO CT SCAN [facility] WS Diagnoses Other nonspecific abnormal finding of lung field CT chest w/o in scanned docs Procedures DIAGNOSTIC COMPUTED TOMOGRAPHY THORAX W/O CNTRST CT WO CH 400 Pilar Lanza, DO [address] [place] [address] Scan [facility] [address] [place] [address] Referral ID Status Reason Start Date Expiration Date Visits Re quested Visits Authorized [id number] Closed 07/19/2023 07/18/2024 1 1 Reason Comments [...] COMPLEX 45 MINS Lois Hoang MD [address] [place] [address] Phone: tel: fax: [facility] [address] [place] [address] Referral ID Status Reason Start Date Expiration Date V isits Requested Visits Authorized [id number] Closed Auto-Generate d Referral 07/19/2024 07/18/2025 1 [...] Diagnoses Unspecified visual disturbance Procedures NA [facility] [address] [place] [address] Phone: tel: [facility] [address] [place] [address] Phone: tel: Referral ID Status Reason Start Date Expiration Date Visits Re quested Visits Authorized [id number] 3 3 Reason Onset Date Comments APPOINTMENT SCHEDULING 12/25/2024 Reason Comments New patient, to establish relationship Specialty Diagnoses / Procedures Referred By Contac t Referred To Contact Pulmonary Medicine Diagnoses COPD exacerbation (HCC) Aura Wagner MD [address] [place] [address] [place] [address] Phone: tel: fax: [facility] [address] [place] [phone] Phone: tel: Referral ID Status Reason Start Date Expiration Date V isits Requested Visits Authorized [id number] Pending Review 10/26/2024 10/26/2025 3 3 Reason [...] Until Discontinued 2050 (MAR Hold - Provider: RT Trent - Reason: RT Project Specialist protocol) 0000 (Automatically Held - Provider: Bertram [...] Patel RT)1600 (Automatically Held - Provider: Bertram aPtel RT)2000 (Automatically Held - Provider: Bertram Patel [...] 0900 0937 (Given - Provider: Juan A Olsen, NEENA) 1311 (Given - Provider: Stephie Phillips, NEENA) [...] 2100 (Given - Provider: Dimitris Mcginnis RN) 09 (Given - Provider: Juan A Olsen RN) [...] 2101 (Given - Provider: Dimitris Mcginnis RN) 916 (Given - Provider: Juan A Olsen RN) enoxaparin (LOVENOX) 40 MG/0.4ML injection 40 mg 40 mg, Subcutaneous, 2 TIMES DAILY, First dose (after last modification) on Wed10/25/24 at 2100, Until Discontinued 2125 (Given - Provider: Lalit Pteers RN) 833 (Given - Provider: Stephie Phillips RN)2099 (Due) folic acid 1 MG tablet 1 mg, Oral, DAILY, First dose on Wed10/26/24 at 0900, Until Discontinued 833 (Given - Provider: Stephie Phillips RN) folic acid 5 MG/ML injection (CANCELED) 1 mg, Intravenous Push, DAILY, First dose on Wed10/24/24 at 2100, Until Discontinued 53 (Given - Provider: Lalit Peters RN)917 (Given - Provider: Juan A Olsen RN) furosemide (LASIX) 10 mg/mL injection (COMPLETED) 20 mg, Intravenous Push, ONCE, 1 dose, On Wed10/24/24 at 2130 2101 (Given - Provider: Dimitris Mcginnis, NEENA) guaiFENesin (MUCINEX) 600 MG 12 hour tablet 600 mg, Oral, 2 TIMES DAILY, First dose on Wed10/24/24 at 2030, Until Discontinued 2100 (Given - Provider: Dimitris Mcginnis RN) 0917 (Given - Provider: Juan A Olsen, NEENA)2126 (Given - Provider: Lalit Peters, NEENA) 0834 (Given - Provider: Stephie Phillips, NEENA)2100 (Due) ipratropium (ATROVENT) 0.02 % nebulizer solution [...] Grullon RT)1208 (Given - Provider: Misha Grullon RT)1551 (Given - Provider: Misha Grullon, RT)2014 (Given - Provider: Sarah Cervantes RT)2342 (Given - Provider: Sarah Cervantes RT) 0359 (Given - Provider: Sarah Cervantes RT)0844 (Given - Provider: Catherine Grady, RT)1159 (Given - Provider: Catherine Grady, RT)1600 (Due)2000 (Due) lisinopril (ZESTRIL) tablet (CANCELED) [...] - Comment: Pt had one placed at [facility]) 914 (Patch Applied - Provider: Juan A Olsen RN) 08 (Patch Removal - Provider: Stephie Phillips, NEENA)08 (Patch Applied - Provider: Stephie Phillips, NEENA) pantoprazole (PROTONIX) tablet 20 mg, Oral, DAILY [...] 0835 (Given - Provider: Stephie Phillips, NEENA) senna (SENOKOT) tablet 8.6 mg, Oral, DAILY, [...] BE BASED ON THE PRIMARY CLINICAL RECORDS. [facility] provides no warranty or guarantee of the accuracy or completeness of information in this document.
[2025-03-10 04:46] LABS: Magnesium 1.8 mg/dL (1.5-2.2)
[2025-03-10 05:03] LABS: Hematocrit 31.3 % (40-54); Hemoglobin 10.6 g/dL (13.0-16.5); Immature Granulocytes Count 0.210 X10^3/uL (0.0-0.0); Mean Corp Hgb Conc 33.9 g/dL (32-36); Mean Corpuscular Volume 86.0 fL (80-94); Mean Platelet Vol. 9.5 fl (6.2-12.0); NRBC Flagged by Analyzer 0 % (0-5); POSITIVE DIFFERENTIAL YES; Platelet Count 409 K/mm3 (150-450); RBC Distribution Width CV 14.2 % (11.6-14.6); RBC Distribution Width SD 44.5 fl (35.1-43.9); Red Blood Count 3.64 M/mm3 (4.6-6.2); White Blood Count 14.9 K/mm3 (4.4-11.0)
[2025-03-10 05:38] LABS: Differential Indicated SCAN CRITERIA MET
[2025-03-10] MEDS: 0.9% Saline Lock 10 ML Syringe IV ×3 (05:44→20:19)
[2025-03-10] MEDS: 0.9% Normal Saline (1000mL) 1,000 ML 100 ML IV (05:44)
[2025-03-10] MEDS: HEPARIN/D5w 25,000 UNITS 25,000 UNITS/250 ML IV.SOLN. 17.4 UNITS CONT INF (05:47)
[2025-03-10 06:13] LABS: AST(SGOT) 39 U/L (<=37); Alanine Aminotransfer ALT/SGPT 48 U/L (<=46); Albumin, Serum 3.1 g/dL (3.4-4.8); Alkaline Phosphatase 117 U/L (40-129); Anion Gap 14 (5-15); BUN 12 mg/dL (4-19); BUN/Creat Ratio 12.4 RATIO (10-20); Calcium,Total 8.0 mg/dL (7.6-11.0); Carbon Dioxide 23.7 mmol/L (21.0-32.0); Chloride 97 mmol/L (98-108); Estimated Creatinine Clearance 99.44 ml/min (50-250); Globulin 3.5 g/dL (2.2-4.2); Glucose 102 mg/dL (70-99); Potassium 3.6 mmol/L (3.3-5.1)
--- NOTE | 2025-03-10 06:18 | PCM.RX.CS ---
Consult Antibiotic Management Pharmacy has been consulted to manage selected antibiotic: Vancomycin Type of Intervention Type of Consult: New start Labs Labs: Sodium 134 mmol/L (133-145) 03/10/25 04:54 Potassium 3.6 mmol/L (3.3-5.1) 03/10/25 04:54 Chloride 97 mmol/L (98-108) L 03/10/25 04:54 Carbon Dioxide 23.7 mmol/L (21.0-32.0) 03/10/25 04:54 Anion Gap 14 (5-15) 03/10/25 04:54 BUN 12 mg/dL (4-19) 03/10/25 04:54 Creatinine 0.93 mg/dL (0.70-1.20) 03/10/25 04:54 Est GFR (MDRD) Non-Af 92 (>60) 03/10/25 04:54 BUN/Creatinine Ratio 12.4 RATIO (10-20) 03/10/25 04:54 Glucose 102 mg/dL (70-99) H 03/10/25 04:54 Microbiology Microbiology: Microbiology 03/10/25 02:44 Urine, Random Legionella Antigen - Final 03/10/25 02:44 Urine, Random Streptococcus pneumoniae Antigen (M - Final 03/10/25 01:35 Mucosa - Nose SARS-CoV-2, Influenza & RSV (PCR) - Final Dosing Weight Weight used for dosin.9 kg Estimated Creatinine Clearance Estimated Creatinine Clearance: 99.44 Goal Trough Goal Trough: 15-20 mcg/mL Pharmacy Plan for Drug Dosing Pharmacy Plan for Drug Dosing: Pharmacy Service will continue to monitor and adjust dosing as required. 2GM DOSE GIVEN IN ER 03/10 @ 0426. START 1250MG Q8H AND DRAW TROUGH PRIOR TO 4TH DOSE Follow-Up Labs Follow-Up Labs: Trough: Vancomycin Date/Time Labs Ordered Labs to be done on [date and time ordered]: 03/11 @ 8201
[2025-03-10 06:46] LABS: Differential Comment SCANNED
--- NOTE | 2025-03-10 09:51 | PCMCONS.TICU ---
HPI Consult Data Date of Consult: 03/10/25 HPI Narrative Reason for Consultation: PE HPI Narrative: 64Y M PMH including but not limited to Asthma/COPD, CKD stage II, chronic normocytic anemia, Hx CVA, GERD, HTN, HLD, tobacco use & ETOH abuse with recent prolonged admission 02/27/2025-03/05/2025 for sepsis 2* to aspiration pneumonia a/w acute respiratory failure & c/b alcohol withdrawal with DTs & CHF/COPD exacerbation who presented overnight with sudden onset dyspnea awaking him from sleep. He had also fallen 2d earlier and presented to the ED after hitting his head. ROS notable for LE edema and chills. In the ED he was placed on NIV support before patient removed it. He was febrile with T100.5 and tachypneic. WBC 16, D-dimer 3.62, ABD pH 7.53, pCO2 32.6, PO2 66 (while on BiPAP), lactic acid 1.9, proBNP II 521 & ETOH <10. COVID/flu/RSV PCR negative. CT head neg for acute intracranial findings. CT PE protocol with findings of Lt sided pulmonary emboli +/- RLL segmental/subsegmental emboli. Also noted to have dew LLL consolidation & atelectatic changes. Improving RLL consolidation and stable mild Rt & new Lt effusion also noted. He received empiric IV Abx and was admitted to the ICU for closer monitoring on 3L NC on heparin drip. Pulmonary consult requested in the setting of above. [facility] Medical History (Updated 03/10/25 @ 05:[address] Adriana Santoro, DO) Obesity History of CVA (cerebrovascular accident) Chronic anemia CKD (chronic kidney disease), stage II (HFpEF) heart failure with preserved ejection fraction COPD (chronic obstructive pulmonary disease) Tobacco abuse Alcohol abuse Hyperlipemia Hypertension GERD (gastroesophageal reflux disease) Home Medications ?Medication ?Instructions ?Recorded ?Last Taken ?Type atorvastatin 80 mg tablet 80 mg PO DAILY 03/22/22 03/22/22 History clopidogrel 75 mg tablet 75 mg PO DAILY 03/22/22 03/22/22 History lisinopril 2.5 mg tablet 2.5 mg PO DAILY 03/22/22 03/22/22 History esomeprazole magnesium 40 mg 40 mg PO DAILY 02/26/25 Unknown History capsule,delayed release folic acid 1 mg tablet 1 mg PO DAILY 02/26/25 Unknown History ipratropium 0.5 mg-albuterol 3 mg 3 ml continuous nebulization Q4H 02/26/25 Unknown History (2.5 mg base)/3 mL nebulization PRN PRN wheezing soln montelukast 10 mg tablet 10 mg PO DAILY 02/26/25 Unknown History thiamine HCl (vitamin B1) 100 mg 100 mg PO DAILY 02/26/25 Unknown History tablet umeclidinium 62.5 mcg-vilanterol 1 ea inhalation DAILY 02/26/25 Unknown History 25 mcg/actuation powdr for inhalation (Anoro Ellipta) furosemide 40 mg tablet (Lasix) 40 mg PO DAILY #7 tabs 03/05/25 Unknown Rx potassium chloride 10 mEq 20 meq (2 x 10 mEq) PO DAILY #14 03/05/25 Unknown Rx tablet,extended release (Klor-Con) tabs prednisone 20 mg tablet 20 mg PO BIDCM #10 tabs 03/05/25 Unknown Rx cyclobenzaprine 10 mg tablet 10 mg PO TID PRN 03/10/25 Unknown History Allergy/AdvReac Type Severity Reaction Status Date / Time Penicillins (PCN) Allergy Unknown - Verified 03/10/25 01:11 WAS A BABY Family History (Updated 03/10/25 @ 04:[address] Dayan Wilks MD) Father Leukemia Mother No problems noted. Surgical History (Updated 03/10/25 @ 04:[address] Dayan Wilks MD) H/O laminectomy Status post bilateral total hip replacement Social History (Updated 03/10/25 @ 04:[address] Dayan Wilks MD) household members: spouse Smoking Status: Current every day smoker tobacco type: cigarettes Smoking packs per day: 1 Smoking cigarettes per day: 20.0 alcohol intake: former details: Recently sober since prior admission, 15-30 beers daily prior. substance use type: does not use Objective Data Objective Data Vital Signs: Vital Signs Last response Temperature 36.9 C 03/10/25 08:00 Temperature Source Temporal 03/10/25 08:00 Pulse Rate 100 03/10/25 08:00 Respiratory Rate 28 H 03/10/25 08:00 Respiratory Effort Short of Breath, Accessory Muscle Use, Nasal Flaring 03/10/25 01:14 Respiratory Depth Shallow 03/10/25 01:14 Respiratory Pattern Tachypnea 03/10/25 08:00 Blood Pressure 155/69 H 03/10/25 08:00 Blood Pressure Mean 97 03/10/25 08:00 Blood Pressure Source Monitor 03/10/25 08:00 Blood Pressure Position Sitting 03/10/25 08:00 Blood Pressure Location Right Forearm 03/10/25 08:00 Pulse Ox 96 03/10/25 08:00 Oxygen Delivery Method Nasal Cannula 03/10/25 08:00 Oxygen Flow Rate (L/min) 96 03/10/25 08:00 Fraction of Inspired Oxygen (FIO2) 99 03/10/25 06:31 I&O: I&O Last 24 Hours 03/09/25 03/09/25 03/10/25 11:59 23:59 11:59 Intake Total 715.54 / 715.54 Output Total 400 / 400 Balance 315.54 / 315.54 I&O: Total Stay 03/10/25 01:09 thru 03/10/25 09:33 Intake Total 715.54 Output Total 400 Balance 315.54 Current Meds Ordered / Administered: Current meds ordered / Administered Generic Name Dose Route Start Last Admin Trade Name Freq PRN Reason Stop Dose Admin Acetaminophen 650 mg 03/10/25 04:38 Acetaminophen 325 Mg Tablet PO Q4H PRN PRN Fever, pain 1-1010 Al Hydroxide/Mg Hydroxide 30 ml 03/10/25 04:38 Mag Hydrox/Al Hydrox/Simeth 30 Ml Udc PO Q6H PRN PRN Gastric Burning Albuterol Sulfate 2.5 mg 03/10/25 04:38 Albuterol 2.5 Mg/3 Ml Vial.Neb. INHALATION Q2H PRN PRN Dyspnea, wheezing Albuterol/Ipratropium 3 ml 03/10/25 04:38 03/10/25 06:30 Ipratropium/Albuterol Sulfate 3 Ml Ampul.Neb INHALATION 3 ml Q4HWA.RT GABBY Administration Atorvastatin Calcium 80 mg 03/10/25 22:00 Atorvastatin Calcium 80 Mg Tablet PO QHS GABBY Clopidogrel Bisulfate 75 mg 03/10/25 10:00 Clopidogrel Bisulfate 75 Mg Tablet PO DAILY GABBY Folic Acid 1 mg 03/10/25 08:00 03/10/25 08:06 Folic Acid 1 Mg Tablet PO 1 mg BREAKFAST GABBY Administration Furosemide 40 mg 03/10/25 10:00 Furosemide 40 Mg Tablet PO DAILY [facility] Protocol Guaifenesin 10 ml 03/10/25 04:38 Guaifenesin 10 Ml Udc (200mg/10ml) PO Q4H PRN PRN COUGH Heparin Sodium (Porcine) 0 unit 03/10/25 05:03 Heparin Nomogram Adjustment 5,000 Unit/Ml Vial IV UD PRN Dose Adjustment Protocol Hydralazine HCl 10 mg 03/10/25 04:38 Hydralazine 20 Mg/Ml Vial IV Q4H PRN PRN SBP > 160 Protocol Sodium Chloride 1,000 mls @ 100 mls/hr 03/10/25 04:38 03/10/25 05:44 IV 03/10/25 14:37 100 mls/hr .Q10H GABBY Administration Cefepime HCl 2 gm/ Sodium 100 mls @ 200 mls/hr 03/10/25 14:00 Chloride IV 03/17/25 14:01 Q8 GABBY Azithromycin 500 mg/ Sodium 255 mls @ 255 mls/hr 03/10/25 10:00 Chloride IV 03/15/25 10:01 Q24 GABBY Vancomycin IV-PHARMACY TO DOSE 500 mls @ 250 mls/hr 03/10/25 04:38 1 each/ Sodium Chloride IV X1 PRN Rx to Dose Protocol Sodium Chloride 250 mls @ 15 mls/hr 03/10/25 04:39 IV .[id number] PRN Saline Flush Sodium Chloride 250 mls @ 15 mls/hr 03/10/25 04:39 IV .[id number] PRN Additional IVPB Infusion Heparin Sodium/Dextrose 25,000 units in 250 mls @ 17.385 mls/hr 03/10/25 05:05 03/10/25 09:33 CONT INF Infused .[id number] [facility] Titration Protocol 15 UNIT/KG/HR Vancomycin HCl 1,250 mg/ 275 mls @ 167 mls/hr 03/10/25 12:30 Sodium Chloride IV Q8H [facility] Lisinopril 2.5 mg 03/10/25 10:00 Lisinopril 2.5 Mg Tablet PO DAILY [facility] Protocol Melatonin 3 mg 03/10/25 04:38 Melatonin 3 Mg Tablet PO QHS PRN PRN INSOMNIA Montelukast Sodium 10 mg 03/10/25 10:00 Montelukast 10 Mg Tablet PO DAILY [facility] Nicotine 21 mg 03/10/25 10:00 Nicotine (Pbkc) 21 Mg Patch TD DAILY [facility] Ondansetron HCl 4 mg 03/10/25 04:38 Ondansetron 4 Mg/2 Ml Vial IV Q8H PRN PRN NAUSEA/VOMITING Pantoprazole Sodium 40 mg 03/10/25 10:00 Pantoprazole Sodium 40 Mg Tablet PO DAILY [facility] Potassium Chloride 20 meq 03/10/25 10:00 Potassium Chloride Oral Tablet 20 Meq PO DAILY [facility] Senna/Docusate Sodium 2 tablet 03/10/25 04:38 Senna/Docusate Sodium 1 Tablet PO BID PRN PRN Constipation Sodium Chloride 10 - 40 ml 03/10/25 04:39 03/10/25 09:31 0.9% Saline Lock 10 Ml Syringe IV 20 ml UD PRN Administration SALINE FLUSH Thiamine HCl 100 mg 03/10/25 10:00 Thiamine Hydrochloride 100 Mg Tablet PO DAILY [facility] Vancomycin Protocol 1 lab 03/11/25 03:00 Vancomycin Trough/Random Due MC 03/11/25 05:00 DAILY [facility] Lab / Micro Data 03/10/25 04:54 03/10/25 04:54 Labs: Laboratory Results - last 24 hr 03/10/25 01:20: WBC 16.0 H, RBC 4.08 L, Hgb 12.0 L, Hct 35.4 L, MCV 86.8, MCH 29.4, MCHC 33.9, RDW Std Deviation 45.9 H, RDW Coeff of Carlos 14.5, Plt Count 466 H, MPV 9.8, Immature Gran % (Auto) 1.500 H, Neut % (Auto) 69.7, Lymph % (Auto) 16.7 L, [place] % (Auto) 11.1 H, Eos % (Auto) 0.6, Baso % (Auto) 0.4, Absolute Neuts (auto) 11.2 H, Absolute Lymphs (auto) 2.68, Nucleated RBC % 0, Differential Comment SCANNED, PT 17.0 H, INR 1.4, APTT 30.9, D-Dimer Quant (PE/DVT) 3.62 H*, Sodium 134, Potassium 3.6, Chloride 94 L, Carbon Dioxide 24.1, Anion Gap 16 H, BUN 12, Creatinine 1.01, Estim Creat Clear Calc 91.69, Est GFR (MDRD) Non-Af 83, BUN/Creatinine Ratio 12.2, Glucose 100 H, Lactic Acid 1.9, Calcium 8.2, Phosphorus 2.4 L, Magnesium 1.8, Total Bilirubin 0.44, AST 48 H, ALT 55 H, Alkaline Phosphatase 128, NT pro BNP II 521, Total Protein 7.2, Albumin 3.4, Globulin 3.8, Albumin/Globulin Ratio 0.9 03/10/25 01:37: Ethyl Alcohol < 10.1 03/10/25 02:44: Urine Color Yellow, Urine Clarity Clear, Urine pH 6.0, Ur Specific [place] 1.015, Urine Protein 30 H, Urine Glucose (UA) Normal, Urine Ketones Negative, Urine Occult Blood 10 H, Urine Nitrite Negative, Urine Bilirubin 1 H, Urine Urobilinogen 4 H, Ur Leukocyte Esterase 25 H, Urine RBC 0 SEEN, Urine WBC 0-5 SEEN, Ur Squamous Epith Cells 0 SEEN, Urine Bacteria 0 SEEN, Urine Mucus 0 SEEN 03/10/25 04:54: WBC 14.9 H, RBC 3.64 L, Hgb 10.6 L, Hct 31.3 L, MCV 86.0, MCH 29.1, MCHC 33.9, RDW Std Deviation 44.5 H, RDW Coeff of Carlos 14.2, Plt Count 409, MPV 9.5, Immature Gran % (Auto) 1.400 H, Neut % (Auto) 72.0 H, Lymph % (Auto) 15.2 L, [place] % (Auto) 10.7 H, Eos % (Auto) 0.3, Baso % (Auto) 0.4, Absolute Neuts (auto) 10.7 H, Absolute Lymphs (auto) 2.25, Nucleated RBC % 0, Differential Comment SCANNED, Sodium 134, Potassium 3.6, Chloride 97 L, Carbon Dioxide 23.7, Anion Gap 14, BUN 12, Creatinine 0.93, Estim Creat Clear Calc 99.44, Est GFR (MDRD) Non-Af 92, BUN/Creatinine Ratio 12.4, Glucose 102 H, Calcium 8.0, Total Bilirubin 0.40, AST 39 H, ALT 48 H, Alkaline Phosphatase 117, Total Protein 6.7, Albumin 3.1 L, Globulin 3.5, Albumin/Globulin Ratio 0.9 Micro: Microbiology 03/10/25 05:10 Mucosa - Nasopharyngeal Respiratory Panel (PCR) - Final 03/10/25 04:45 Nasal Secretion MRSA (PCR) - Final 03/10/25 02:44 Urine, Random Legionella Antigen - Final 03/10/25 02:44 Urine, Random Streptococcus pneumoniae Antigen (M - Final 03/10/25 01:35 Mucosa - Nose SARS-CoV-2, Influenza & RSV (PCR) - Final ABG Data ABG results: ABG 03/10/25 01:38 Specimen Type ART Sample Site R Radial pH 7.53 H Bicarbonate Actual 27.5 H Total CO2 29 Base Excess 5 H O2 Saturation 95 O2 % 30.0 ABG pCO2 32.8 L ABG pO2 66 L Pardeep Test Positive Respiration Rate 12 O2 Delivery Device BiPAP Vent Mode Not entered POC PEEP 8 Peak Inspir Pressure 14 Rhythm Strip Rhythm Strip: Sinus Rhythm Rate: 80 Ectopy: None Imaging Radiology Impression Brain CT 03/10/25 01:36 IMPRESSION: No acute cerebrovascular abnormalities. If clinical symptoms persist, further evaluation with MRI may be considered as clinically warranted. No intra or extra-axial acute hemorrhage. Bilateral cerebral microvascular ischemic changes with brain involutional changes. Stable. Reading Location: [place] [address] Chest X-Ray 03/10/25 01:50 IMPRESSION: Minimal bilateral pleural effusions. Passive atelectatic airspace disease in the lower lobes. Enlarged cardiac silhouette. Reading Location: [place] [address] Chest CTA 03/10/25 02:46 IMPRESSION: Newly developed left pulmonary arterial thromboembolism. Poorly opacified some of the right lower lung lobe pulmonary segmental arteries and subsegmental arteries that could represent flow related artifact versus embolism. Advise follow up. Cardiomegaly. Regression of the extent of the right lower lung lobe consolidative changes. Newly developed left lower lung lobe consolidative and atelectatic changes, possibly infarcts versus pneumonia. Stable mild right and newly developed left pleural effusion. Reading Location: [place] [address] Assessment and Plan . Assessment and plan: PE: General: Well developed morbidly obese acute on chronically ill appearing male, in no distress HEENT: anicteric Sclera, nl nose; supple neck, no masses Cardiovascular: S1/S2; No rubs, gallops; no displaced PM; 1-2+ BLE edema Respiratory: diminished; no crackles, wheezes, or rhonchi Abdominal: Non-tender; Non distended; hypoBS x 4; No Hepatosplenomegaly Extremities: Warm, well perfused; No clubbing, cyanosis; capillary refill < 2 sec Skin: intact, no rashes Neurological: A&Ox3; no gross deficits appreciated #Acute hypoxemic respiratory failure: sp NIV (before patient refused); cont O2 to keep sats >90%: currently on 3L; mobilize and encourage IS use #Sepsis: sp fluids; PRN NEpi to keep MAP > 65; lactate < 2; cont Abx; F/U Cx #Lt LL PNA: cont vanc/cefepime/azithro; F/U Cx #Acute PE: initially on hep gtt but transitioned earlier to Eliquis; F/U limited TTE to better assess for pHTN/RV strain #COPD/asthma with recent exacerbation: cont nebs #HFpEF with recent exacerbation: no strong evidence of acute exac; cont supportive management; restart diuresis in a few days as appropriate #ETOH abuse with Hx of DTs: monitor for withdrawal syndromes #Tobacco abuse: counseling #Recent fall: PT/OT #CKD stage II: receiving limited course of IVF post-contrast; cont strict I/Os #Chronic normocytic anemia: monitor blood counts PO diet Eliquis Guarded prognosis The entirety of this encounter was done via Telemedicine
[2025-03-10] MEDS: Nicotine (PBKC) 21 MG Patch TD (10:04)
[2025-03-10] MEDS: Thiamine Hydrochloride 100 MG Tablet PO (10:04)
[2025-03-10] MEDS: Potassium Chloride Oral Tablet 20 MEQ PO (10:08)
[2025-03-10] MEDS: Azithromycin 500 MG in 0.9% Normal Saline (250mL Bag) 250 ML 255 MG IV (10:23)
--- NOTE | 2025-03-10 10:40 | ECHOL_ITS ---
Reason For Study Reason For Study: Pulmonary Embolism, Assess RV function/PHTN Procedure This was a limited 2D transthoracic echocardiogram. Patient was scanned in sitting position during reflux assessment. The study was technically difficult. Limited views were obtained. Left Ventricle Normal LV size. The estimated ejection fraction is 60 %. Unable to assess diastolic dysfunction. No regional wall motion abnormalities noted. Atria The left and right atria are normal. No doppler evidence for ASD. Mitral Valve There is no mitral valve stenosis. No mitral valve insufficiency. Tricuspid Valve There is no tricuspid stenosis. No tricuspid valve insufficiency. Aortic Valve Trisinus/trileaflet aortic valve. There is no aortic stenosis. No aortic valve insufficiency. Pulmonic Valve There is no pulmonic valvular stenosis. No pulmonic valve insufficiency. Great Vessels Normal sized aortic root. Pericardium/Pleural No pericardial effusion. MMode/2D Measurements & Calculations LVIDd: 5.7 cm IVSd: 1.1 cm LVIDs: 3.5 cm LVPWd: 1.2 cm RVDd: 4.5 cm FS: 37.9 % ECHO/Echo, Limited Study Interpretation Summary The estimated ejection fraction is 60 %. Unable to assess diastolic dysfunction. Ordering Physician: Evan Acosta Referring Physician: Fidencio Sanders Performed By: Christina Castillo, OBIE, RVT
--- NOTE | 2025-03-10 11:30 | NURSING ---
10:50 Report givne to NEENA Carson in PCU. 10:52 Patient transported to PCU 120 via wheelchair, by TENA Ramirez. Patient off unit at this time
--- NOTE | 2025-03-10 12:20 | PCM.PN.HOSP ---
Reason for Visit Chief Complaint: Dyspnea, chills, confusion. Subjective Subjective Patient was seen and examined today, he is alert and appropriate. He is on nasal cannula oxygen presently. He was admitted yesterday for pulmonary emboli and aspiration pneumonia. Patient was hypoxic in the emergency room and was also felt to be septic. Objective Data Objective Data Vital Signs: Vital Signs Temp Pulse Resp BP Pulse Ox O2 Del Method O2 Flow Rate 98.0 F 77 28 H 158/76 H 98 Room Air 98 03/10/25 10:00 03/10/25 10:00 03/10/25 10:00 03/10/25 10:00 03/10/25 10:00 03/10/25 10:00 03/10/25 10:00 FiO2 99 03/10/25 06:31 Oxygen Flow Rate (L/min) 98 Oxygen Delivery Method Room Air Weight: 115.9 kg Body Mass Index (BMI) 37.7 Intake & Output: Intake and Output for Last 24 Hours 03/08/25 03/09/25 03/10/25 23:59 23:59 23:59 Intake Total 990.54 / 990.54 Output Total 1000 / 1000 Balance -9.46 / -9.46 Lab / Micro Data 03/10/25 04:54 03/10/25 04:54 Labs: Laboratory Results - last 24 hr 03/10/25 01:20: WBC 16.0 H, RBC 4.08 L, Hgb 12.0 L, Hct 35.4 L, MCV 86.8, MCH 29.4, MCHC 33.9, RDW Std Deviation 45.9 H, RDW Coeff of Carlos 14.5, Plt Count 466 H, MPV 9.8, Immature Gran % (Auto) 1.500 H, Neut % (Auto) 69.7, Lymph % (Auto) 16.7 L, [place] % (Auto) 11.1 H, Eos % (Auto) 0.6, Baso % (Auto) 0.4, Absolute Neuts (auto) 11.2 H, Absolute Lymphs (auto) 2.68, Nucleated RBC % 0, Differential Comment SCANNED, PT 17.0 H, INR 1.4, APTT 30.9, D-Dimer Quant (PE/DVT) 3.62 H*, Sodium 134, Potassium 3.6, Chloride 94 L, Carbon Dioxide 24.1, Anion Gap 16 H, BUN 12, Creatinine 1.01, Estim Creat Clear Calc 91.69, Est GFR (MDRD) Non-Af 83, BUN/Creatinine Ratio 12.2, Glucose 100 H, Lactic Acid 1.9, Calcium 8.2, Phosphorus 2.4 L, Magnesium 1.8, Total Bilirubin 0.44, AST 48 H, ALT 55 H, Alkaline Phosphatase 128, NT pro BNP II 521, Total Protein 7.2, Albumin 3.4, Globulin 3.8, Albumin/Globulin Ratio 0.9 03/10/25 01:37: Ethyl Alcohol < 10.1 03/10/25 02:44: Urine Color Yellow, Urine Clarity Clear, Urine pH 6.0, Ur Specific [place] 1.015, Urine Protein 30 H, Urine Glucose (UA) Normal, Urine Ketones Negative, Urine Occult Blood 10 H, Urine Nitrite Negative, Urine Bilirubin 1 H, Urine Urobilinogen 4 H, Ur Leukocyte Esterase 25 H, Urine RBC 0 SEEN, Urine WBC 0-5 SEEN, Ur Squamous Epith Cells 0 SEEN, Urine Bacteria 0 SEEN, Urine Mucus 0 SEEN 03/10/25 04:54: WBC 14.9 H, RBC 3.64 L, Hgb 10.6 L, Hct 31.3 L, MCV 86.0, MCH 29.1, MCHC 33.9, RDW Std Deviation 44.5 H, RDW Coeff of Carlos 14.2, Plt Count 409, MPV 9.5, Immature Gran % (Auto) 1.400 H, Neut % (Auto) 72.0 H, Lymph % (Auto) 15.2 L, [place] % (Auto) 10.7 H, Eos % (Auto) 0.3, Baso % (Auto) 0.4, Absolute Neuts (auto) 10.7 H, Absolute Lymphs (auto) 2.25, Nucleated RBC % 0, Differential Comment SCANNED, Sodium 134, Potassium 3.6, Chloride 97 L, Carbon Dioxide 23.7, Anion Gap 14, BUN 12, Creatinine 0.93, Estim Creat Clear Calc 99.44, Est GFR (MDRD) Non-Af 92, BUN/Creatinine Ratio 12.4, Glucose 102 H, Calcium 8.0, Total Bilirubin 0.40, AST 39 H, ALT 48 H, Alkaline Phosphatase 117, Total Protein 6.7, Albumin 3.1 L, Globulin 3.5, Albumin/Globulin Ratio 0.9 Micro: Microbiology 03/10/25 05:10 Mucosa - Nasopharyngeal Respiratory Panel (PCR) - Final 03/10/25 04:45 Nasal Secretion MRSA (PCR) - Final 03/10/25 02:44 Urine, Random Legionella Antigen - Final 03/10/25 02:44 Urine, Random Streptococcus pneumoniae Antigen (M - Final 03/10/25 01:35 Mucosa - Nose SARS-CoV-2, Influenza & RSV (PCR) - Final ABG Data ABG results: ABG 03/10/25 01:38 Specimen Type ART Sample Site R Radial pH 7.53 H Bicarbonate Actual 27.5 H Total CO2 29 Base Excess 5 H O2 Saturation 95 O2 % 30.0 ABG pCO2 32.8 L ABG pO2 66 L Pardeep Test Positive Respiration Rate 12 O2 Delivery Device BiPAP Vent Mode Not entered POC PEEP 8 Peak Inspir Pressure 14 Radiography Diagnostic Testing: Radiology Impression Brain CT 03/10/25 01:36 IMPRESSION: No acute cerebrovascular abnormalities. If clinical symptoms persist, further evaluation with MRI may be considered as clinically warranted. No intra or extra-axial acute hemorrhage. Bilateral cerebral microvascular ischemic changes with brain involutional changes. Stable. Reading Location: [place] [address] Chest X-Ray 03/10/25 01:50 IMPRESSION: Minimal bilateral pleural effusions. Passive atelectatic airspace disease in the lower lobes. Enlarged cardiac silhouette. Reading Location: [place] [address] Chest CTA 03/10/25 02:46 IMPRESSION: Newly developed left pulmonary arterial thromboembolism. Poorly opacified some of the right lower lung lobe pulmonary segmental arteries and subsegmental arteries that could represent flow related artifact versus embolism. Advise follow up. Cardiomegaly. Regression of the extent of the right lower lung lobe consolidative changes. Newly developed left lower lung lobe consolidative and atelectatic changes, possibly infarcts versus pneumonia. Stable mild right and newly developed left pleural effusion. Reading Location: [place] [address] Rhythm Strip Rhythm Strip: Sinus Rhythm Rate: 80 Ectopy: None Physical Exam Const alert, oriented x3 and no apparent distress General Appearance: cooperative, well kempt and well developed Orientation / Consciousness: awake, oriented to person, oriented to place and oriented to time HEENT normocephalic, head/scalp atraumatic and moist oral mucous membranes Eyes PERRL, EOMs intact bilaterally and conjunctivae normal Neck supple, no JVD, thyroid normal and no carotid bruits General: trachea midline Resp normal respiratory effort, no retractions and no use of accessory muscles Resp Narrative: Breath sounds are diminished bilaterally Auscultation: Negative for rales, rhonchi or wheezes Cardio regular rate, regular rhythm, S1 normal heart sound, S2 normal heart sound, no murmurs, no rub and no gallops GI normal to inspection, nondistended, normoactive bowel sounds, soft to palpation, non-tender and non-distended Extremity no clubbing, cyanosis or edema Skin no rashes or lesions noted General Skin Exam: no breakdown Neuro oriented x3, CN's II-XII intact bilaterally, moves all extremities, no focal motor deficits and no sensory deficits noted Sensorium / Orientation: awake and alert Speech: speech normal Psych affect normal Assessment & Plan Assessment/Plan (1) Pulmonary embolism: PLAN: Plan 1. Sepsis-I elected to take the patient off Zithromax and continue cefepime, patient appears stable for transfer to PCU for further care today #2 aspiration pneumonia-again patient is on cefepime currently, he is being seen by speech therapy #3 hypoxic respiratory failure secondary to aspiration pneumonia and pulmonary emboli-patient currently is on nasal cannula oxygen #4 pulmonary embolism-I have elected to place the patient on Eliquis, his heparin drip was stopped #5 cerebrovascular disease-patient is on Plavix and a statin currently, I have elected to keep him on this combination even though he is fully anticoagulated #6 chronic obstructive pulmonary disease-patient will continue on aerosol treatments I do not feel the patient has encephalopathy currently, patient will be seen by PT and OT Total clinical time spent by myself addressing the patient's medical issues, reviewing all of his data, and collaborating with patient's care team: 35 minutes Charges/Coding Visit Charges Inpatient E&M: 73618 Subs Hosp L2
[2025-03-10 12:44] LABS: Partial Thromboplast Time 28.9 Seconds (24.1-36.2)
[2025-03-10] MEDS: APIXABAN 5 MG TABLET 10 MG PO ×2 (12:45→22:01)
[2025-03-10] MEDS: Vancomycin HCl 1,250 MG in 0.9% Normal Saline (250mL Bag) 250 ML 167 MG IV ×2 (12:45→20:19)
[2025-03-11] VITALS (9 sets, daily range): BP systolic 130–146; BP diastolic 63–81; PULSE 64–81; RESP 18–28; TEMP 36.6–37.1; O2SAT 94–98; BMI 37.8
[2025-03-11 05:11] LABS: Vancomycin, Trough Level 17.8 ug/mL (5.0-15.0)
[2025-03-11] MEDS: 0.9% Normal Saline (250mL Bag) 250 ML 15 ML IV (05:25)
[2025-03-11] MEDS: Vancomycin HCl 1,250 MG in 0.9% Normal Saline (250mL Bag) 250 ML 167 MG IV ×3 (05:25→21:55)
--- NOTE | 2025-03-11 06:06 | PCM.RX.CS ---
Consult Antibiotic Management Pharmacy has been consulted to manage selected antibiotic: Vancomycin Type of Intervention Type of Consult: Follow-up Labs Labs: Sodium 134 mmol/L (133-145) 03/10/25 04:54 Potassium 3.6 mmol/L (3.3-5.1) 03/10/25 04:54 Chloride 97 mmol/L (98-108) L 03/10/25 04:54 Carbon Dioxide 23.7 mmol/L (21.0-32.0) 03/10/25 04:54 Anion Gap 14 (5-15) 03/10/25 04:54 BUN 12 mg/dL (4-19) 03/10/25 04:54 Creatinine 0.93 mg/dL (0.70-1.20) 03/10/25 04:54 Est GFR (MDRD) Non-Af 92 (>60) 03/10/25 04:54 BUN/Creatinine Ratio 12.4 RATIO (10-20) 03/10/25 04:54 Glucose 102 mg/dL (70-99) H 03/10/25 04:54 Vancomycin Trough 17.8 ug/mL (5.0-15.0) H 03/11/25 04:15 Microbiology Microbiology: Microbiology 03/10/25 05:10 Mucosa - Nasopharyngeal Respiratory Panel (PCR) - Final 03/10/25 04:45 Nasal Secretion MRSA (PCR) - Final 03/10/25 02:44 Urine, Random Legionella Antigen - Final 03/10/25 02:44 Urine, Random Streptococcus pneumoniae Antigen (M - Final 03/10/25 01:35 Mucosa - Nose SARS-CoV-2, Influenza & RSV (PCR) - Final Goal Trough Goal Trough: 15-20 mcg/mL Pharmacy Plan for Drug Dosing Pharmacy Plan for Drug Dosing: Pharmacy Service will continue to monitor and adjust dosing as required. TROUGH 17.8 @ 8 HOURS. NO CHANGES, FOLLOW UP TROUGH IN 2 DAYS Follow-Up Labs Follow-Up Labs: Trough: Vancomycin Date/Time Labs Ordered Labs to be done on [date and time ordered]: 03/13 @ 0400
[2025-03-11] MEDS: Cefepime HCl 2 GM in 0.9% Normal Saline (100mL MB+) 100 ML IV ×3 (07:14→20:08)
[2025-03-11] MEDS: Thiamine Hydrochloride 100 MG Tablet PO (08:58)
[2025-03-11] MEDS: Potassium Chloride Oral Tablet 20 MEQ PO (08:59)
[2025-03-11] MEDS: APIXABAN 5 MG TABLET 10 MG PO ×2 (08:59→20:07)
[2025-03-11] MEDS: Nicotine (PBKC) 21 MG Patch TD (09:00)
--- NOTE | 2025-03-11 10:49 | PCM.PN.HOSP ---
Reason for Visit Chief Complaint: Dyspnea, chills, confusion. Subjective Subjective Patient was seen and examined today, had a long conversation with his daughter yesterday, his daughter states that the is filing for divorce that is moving out of his house, she does not feel that her mother is taking good care of her of her dad at this time and wanted me to have a discussion with the patient concerning this. She also stated the patient has been crying at times and expressing feelings of depression, I elected to start him on Cymbalta. Today I talked with the patient, he denied any difficulty at home with care, he did say that he was having some personal problems and I told him I understood, I ask him if he felt depressed he said he did not know if he was depressed. I have elected at this time to keep him on Cymbalta, physical therapy will work with the patient, he currently is on 3 L via nasal cannula. Speech continues to work with the patient, I will repeat labs tomorrow. Objective Data Objective Data Vital Signs: Vital Signs Temp Pulse Resp BP Pulse Ox O2 Del Method O2 Flow Rate 98.4 F 80 18 137/63 H 95 Nasal Cannula 3 03/11/25 09:31 03/11/25 09:31 03/11/25 09:31 03/11/25 09:31 03/11/25 09:31 03/11/25 09:31 03/11/25 09:31 FiO2 99 03/10/25 06:31 Oxygen Flow Rate (L/min) 3 Oxygen Delivery Method Nasal Cannula Weight: 116.2 kg Body Mass Index (BMI) 37.8 Intake & Output: Intake and Output for Last 24 Hours 03/09/25 03/10/25 03/11/25 23:59 23:59 23:59 Intake Total 3520.54 / 3520.54 617.5 / 617.5 Output Total 1750 / 1750 450 / 450 Balance 1770.54 / 1770.54 167.5 / 167.5 Medical Nutrition Assessment Dietitian: Malnutrition Criteria Met Start: 03/10/25 15:25 Freq: Status: Active Protocol: Document 03/10/25 15:25 MARIEL (Rec: 03/10/25 15:25 MARIEL [id number]) Nutrition Malnutrition Evidence of Yes Malnutrition Exists Malnutrition (severe Acute Illness/Injury ): Evidenced By Suboptimal Energy Intake (Severe),Weight Loss (Severe) Clinical Problem Acute Disease or Injury Related Malnutrition Etiology related to physiological changes decreasing appetite and oral intakes Signs/Symptoms as evidenced by significant weight loss of 4.1% or 11lb in less than one week based upon 03/05/25 weight of 266lb and oral intakes meeting less than 50% of estimated nutrient needs x 1 week with pt report. Status Active Problem Recommendation Dietitian Continue with Cardiac - Heart Healthy diet with Recommendations/ modifications per GRINDING SUPERVISOR recommendation 2/2 2+ pitting BLE Changes . Pt not interested in ONS use at this time. RD encouraged to increase oral intakes and pt was in understanding and agreeable. Will continue to follow, monitor oral intakes and modify nutrition interventions as needed. Lab / Micro Data 03/10/25 04:54 03/10/25 04:54 Labs: Laboratory Results - last 24 hr 03/10/25 12:29: APTT 28.9 03/11/25 04:15: Vancomycin Trough 17.8 H Micro: Microbiology 03/10/25 05:10 Mucosa - Nasopharyngeal Respiratory Panel (PCR) - Final 03/10/25 04:45 Nasal Secretion MRSA (PCR) - Final 03/10/25 02:44 Urine, Random Legionella Antigen - Final 03/10/25 02:44 Urine, Random Streptococcus pneumoniae Antigen (M - Final 03/10/25 01:35 Mucosa - Nose SARS-CoV-2, Influenza & RSV (PCR) - Final Radiography Diagnostic Testing: Radiology Impression Echocardiogram 03/10/25 10:40 Interpretation Summary The estimated ejection fraction is 60 %. Unable to assess diastolic dysfunction. Ordering Physician: Evan Acosta Referring Physician: Fidencio Sanders Performed By: Christina Castillo, CASHCS, RVT Rhythm Strip Rhythm Strip: Sinus Rhythm Rate: 80 Ectopy: None Physical Exam Narrative alert, oriented x3 and no apparent distress General Appearance: cooperative, well kempt and well developed Orientation / Consciousness: awake, oriented to person, oriented to place and oriented to time HEENT normocephalic, head/scalp atraumatic and moist oral mucous membranes Eyes PERRL, EOMs intact bilaterally and conjunctivae normal Neck supple, no JVD, thyroid normal and no carotid bruits General: trachea midline Resp normal respiratory effort, no retractions and no use of accessory muscles Resp Narrative: Breath sounds are diminished bilaterally Auscultation: Negative for rales, rhonchi or wheezes Cardio regular rate, regular rhythm, S1 normal heart sound, S2 normal heart sound, no murmurs, no rub and no gallops GI normal to inspection, nondistended, normoactive bowel sounds, soft to palpation, non-tender and non-distended Extremity no clubbing, cyanosis or edema Skin no rashes or lesions noted General Skin Exam: no breakdown Neuro oriented x3, CN's II-XII intact bilaterally, moves all extremities, no focal motor deficits and no sensory deficits noted Sensorium / Orientation: awake and alert Speech: speech normal Psych affect normal Assessment & Plan Assessment/Plan (1) Pulmonary embolism: PLAN: Plan 1. Sepsis-I elected to take the patient off Zithromax and continue cefepime #2 aspiration pneumonia-again patient is on cefepime currently, he is being seen by speech therapy #3 hypoxic respiratory failure secondary to aspiration pneumonia and pulmonary emboli-patient currently is on nasal cannula oxygen #4 pulmonary embolism-patient is currently on Eliquis #5 cerebrovascular disease-patient is on Plavix and a statin currently, I have elected to keep him on this combination even though he is fully anticoagulated #6 chronic obstructive pulmonary disease-patient will continue on aerosol treatments I do not feel the patient has encephalopathy currently, patient will be seen by PT and OT Total clinical time spent by myself addressing the patient's medical issues, reviewing all of his data, and collaborating with patient's care team: 35 minutes Charges/Coding Visit Charges Inpatient E&M: 09526 Subs Hosp L2
[2025-03-12] VITALS (11 sets, daily range): BP systolic 135–156; BP diastolic 58–92; PULSE 68–86; RESP 18–32; TEMP 36.2–36.7; O2SAT 92–100; BMI 37.8
[2025-03-12] MEDS: Cefepime HCl 2 GM in 0.9% Normal Saline (100mL MB+) 100 ML IV ×3 (05:07→23:59)
[2025-03-12] MEDS: Vancomycin HCl 1,250 MG in 0.9% Normal Saline (250mL Bag) 250 ML 167 MG IV ×3 (05:38→20:41)
--- NOTE | 2025-03-12 09:05 | CASEMGMT ---
NEENA CM Readmission Chart Review 02/27/25-03/05/25. Dx: Fever, Leukocytosis, AMS, ETOH Abuse and Recent Fall 03/10/25. Dx: Sepsis, RF, BL PNA, Possible PE From the index admission, the patient was discharged home with [facility] home health(SN, PT/OT, & ST). Per chart review, the patient lives at home with his , who is filing for divorce. Patient re-presents to [facility] ER with dyspnea, chills, mild swelling, and fall. See H&P. field services manager to the patient room at this time. Patient is sitting up in the chair and is A&Ox4 and is calm. Patient states that he was able to get all of his new prescriptions & take all of his medications as ordered. Patient states that there was not enough time in between admissions to follow up with his PCP. Patient states that he was not drinking any alcohol in between admissions. However, patient states that he continued to smoke cigarettes. Patient states that he was having ?a few here and there.? Patient declines wanting any resources or help regarding the patient's filing for divorce or cessation resources at this time. Moving forward, the patient states that he plans to return home once medically ready. Patient wishes to resume home healthcare services through [facility] home health and refuses wanting to review a list of local in-network home healthcare agencies. TC to [facility] who reports that they are able to accept the pt once the pt is DC'd. The patient is currently on oxygen and may qualify for home oxygen. The patient states that he has his own personal oxygen concentrator at home, but would now be willing to go through an official DME company if he were to qualify. A verbal list of local network DME companies was provided to the patient at this time. Patient prefers [employer]. Per chart review, the patient may go home on Eliquis. Patient states that he prefers to go through [facility] pharmacy. strategic sourcing manager to follow for the cost. It is also noted that the patient refused physical therapy's evaluation yesterday. Care management to follow for evaluation. Follow ID Consult. At this time, the patient denies any further questions or concerns. Patient states that he feels safe returning home with home healthcare. Case management to follow for potential home oxygen use as well as a new Eliquis Rx. Report given to HELP DESK SPECIALIST CM. Ruben LOZANO RN CM
[2025-03-12 09:33] LABS: Hematocrit 32.6 % (40-54); Hemoglobin 10.6 g/dL (13.0-16.5); Immature Granulocytes Count 0.040 X10^3/uL (0.0-0.0); Mean Corp Hgb Conc 32.5 g/dL (32-36); Mean Corpuscular Volume 88.1 fL (80-94); Mean Platelet Vol. 9.5 fl (6.2-12.0); NRBC Flagged by Analyzer 0 % (0-5); Platelet Count 427 K/mm3 (150-450); RBC Distribution Width CV 14.3 % (11.6-14.6); RBC Distribution Width SD 46.5 fl (35.1-43.9); Red Blood Count 3.70 M/mm3 (4.6-6.2); White Blood Count 11.1 K/mm3 (4.4-11.0)
[2025-03-12] MEDS: APIXABAN 5 MG TABLET 10 MG PO ×2 (09:42→20:45)
[2025-03-12] MEDS: Potassium Chloride Oral Tablet 20 MEQ PO (09:43)
[2025-03-12] MEDS: Nicotine (PBKC) 21 MG Patch TD (09:43)
[2025-03-12] MEDS: Thiamine Hydrochloride 100 MG Tablet PO (09:44)
--- NOTE | 2025-03-12 12:38 | PCM.PN.HOSP ---
Reason for Visit Chief Complaint: Dyspnea, chills, confusion. Subjective Subjective Patient was seen and examined today, he states when he is discharged from the hospital he would like to go home rather than go to a retirement facility. Patient's white blood cell count today was 11.1, hemoglobin was stable at 10.6, he is currently on 3 L of nasal cannula O2 Objective Data Objective Data Vital Signs: Vital Signs Temp Pulse Resp BP Pulse Ox O2 Del Method O2 Flow Rate 97.6 F L 73 32 H 135/58 H 93 Room Air 3 03/12/25 09:39 03/12/25 11:06 03/12/25 11:06 03/12/25 09:39 03/12/25 09:39 03/12/25 09:45 03/12/25 11:08 FiO2 99 03/10/25 06:31 Oxygen Flow Rate (L/min) 3 Oxygen Delivery Method Room Air Weight: 116.3 kg Body Mass Index (BMI) 37.8 Intake & Output: Intake and Output for Last 24 Hours 03/10/25 03/11/25 03/12/25 23:59 23:59 23:59 Intake Total 3520.54 / 3520.54 2207.5 / 2207.5 375 / 375 Output Total 1750 / 1750 1800 / 1800 1550 / 1550 Balance 1770.54 / 1770.54 407.5 / 407.5 -1175 / -1175 Medical Nutrition Assessment Dietitian: Malnutrition Criteria Met Start: 03/10/25 15:25 Freq: Status: Active Protocol: Document 03/10/25 15:25 MARIEL (Rec: 03/10/25 15:25 LUCIANO [id number]) Nutrition Malnutrition Evidence of Yes Malnutrition Exists Malnutrition (severe Acute Illness/Injury ): Evidenced By Suboptimal Energy Intake (Severe),Weight Loss (Severe) Clinical Problem Acute Disease or Injury Related Malnutrition Etiology related to physiological changes decreasing appetite and oral intakes Signs/Symptoms as evidenced by significant weight loss of 4.1% or 11lb in less than one week based upon 03/05/25 weight of 266lb and oral intakes meeting less than 50% of estimated nutrient needs x 1 week with pt report. Status Active Problem Recommendation Dietitian Continue with Cardiac - Heart Healthy diet with Recommendations/ modifications per MANAGER STUDENT SERVICES recommendation 2/2 2+ pitting BLE Changes . Pt not interested in ONS use at this time. RD encouraged to increase oral intakes and pt was in understanding and agreeable. Will continue to follow, monitor oral intakes and modify nutrition interventions as needed. Lab / Micro Data 03/12/25 09:09 03/10/25 04:54 Labs: Laboratory Results - last 24 hr 03/12/25 09:09: WBC 11.1 H, RBC 3.70 L, Hgb 10.6 L, Hct 32.6 L, MCV 88.1, MCH 28.6, MCHC 32.5, RDW Std Deviation 46.5 H, RDW Coeff of Carlos 14.3, Plt Count 427, MPV 9.5, Immature Gran % (Auto) 0.400, Neut % (Auto) 79.8 H, Lymph % (Auto) 11.1 L, [place] % (Auto) 6.8, Eos % (Auto) 1.4, Baso % (Auto) 0.5, Absolute Neuts (auto) 8.8 H, Absolute Lymphs (auto) 1.23, Nucleated RBC % 0 Micro: Microbiology 03/10/25 01:37 Blood Culture (Wb) - Right Hand Blood Culture - Preliminary No growth in 48 hours. 03/10/25 02:44 Blood Culture (Wb) - Right Hand Blood Culture - Preliminary No growth in 48 hours. 03/10/25 02:44 Urine, Random Urine Culture - Final Gram negative rose 03/10/25 05:10 Mucosa - Nasopharyngeal Respiratory Panel (PCR) - Final 03/10/25 04:45 Nasal Secretion MRSA (PCR) - Final 03/10/25 02:44 Urine, Random Legionella Antigen - Final 03/10/25 02:44 Urine, Random Streptococcus pneumoniae Antigen (M - Final 03/10/25 01:35 Mucosa - Nose SARS-CoV-2, Influenza & RSV (PCR) - Final Rhythm Strip Rhythm Strip: Sinus Rhythm Rate: 80 Ectopy: None Physical Exam Narrative alert, oriented x3 and no apparent distress General Appearance: cooperative, well kempt and well developed Orientation / Consciousness: awake, oriented to person, oriented to place and oriented to time HEENT normocephalic, head/scalp atraumatic and moist oral mucous membranes Eyes PERRL, EOMs intact bilaterally and conjunctivae normal Neck supple, no JVD, thyroid normal and no carotid bruits General: trachea midline Resp normal respiratory effort, no retractions and no use of accessory muscles Resp Narrative: Breath sounds are diminished bilaterally Auscultation: Negative for rales, rhonchi or wheezes Cardio regular rate, regular rhythm, S1 normal heart sound, S2 normal heart sound, no murmurs, no rub and no gallops GI normal to inspection, nondistended, normoactive bowel sounds, soft to palpation, non-tender and non-distended Extremity no clubbing, cyanosis or edema Skin no rashes or lesions noted General Skin Exam: no breakdown Neuro oriented x3, CN's II-XII intact bilaterally, moves all extremities, no focal motor deficits and no sensory deficits noted Sensorium / Orientation: awake and alert Speech: speech normal Psych affect normal Assessment & Plan Assessment/Plan (1) Pulmonary embolism: PLAN: Plan 1. Sepsis-I elected to take the patient off Zithromax and continue cefepime #2 aspiration pneumonia-again patient is on cefepime currently, he is being seen by speech therapy #3 hypoxic respiratory failure secondary to aspiration pneumonia and pulmonary emboli-patient currently is on nasal cannula oxygen #4 pulmonary embolism-patient is currently on Eliquis #5 cerebrovascular disease-patient is on Plavix and a statin currently, I have elected to keep him on this combination even though he is fully anticoagulated #6 chronic obstructive pulmonary disease-patient will continue on aerosol treatments #7 acute protein and caloric malnutrition-as evidenced by significant weight loss of 4.1% or 11 pounds in less than 1 week based upon 03/05/2025 weight of 266 pounds and oral intake meeting less than 50% of estimated nutritional needs x 1 week.-Continue with cardiac heart healthy diet with modifications per speech therapy recommendation I do not feel the patient has encephalopathy currently, patient will be seen by PT and OT. Total clinical time spent by myself addressing the patient's medical issues, reviewing all of his data, and collaborating with patient's care team: 35 minutes Charges/Coding Visit Charges Inpatient E&M: 20174 Subs Hosp L2
--- NOTE | 2025-03-12 14:22 | PCM.CONS.GEN ---
Assessment & Plan Assessment/Plan (1) Pulmonary embolism: (2) Bilateral pneumonia: (3) Acute hypoxic respiratory failure: PLAN: Feeling better. PE seen on CTA. Covid neg, Urine Ags neg. Bcx neg. MRSA screen neg. Full resp pcr panel neg. No sputum. Wbc improved. Now on cefepime, overall low concern for new pneumonia, but plan on discharge home on 3 days po cefdinir 300mg bid to complete empiric course. Will follow, thank you HPI Consult Data Date of Consult: 03/12/25 HPI Narrative Reason for Consultation: pneumonia HPI Narrative: ELIS BILLS, is a 64 M with recent admit for presumed aspiration pneumonia, discharged 03/05, was doing well at home until 03/10. Had some increased leg swelling, some increased feeling of being cold, and then sudden onset dyspnea. Had some associated L lower chest pain. No sputum, no n/v/d. Came to ED, found to have PE, admitted on azithro and cefepime. Wbc improved, feeling better. Full ROS performed and neg except as noted above. [facility] Medical History Obesity History of CVA (cerebrovascular accident) Chronic anemia CKD (chronic kidney disease), stage II (HFpEF) heart failure with preserved ejection fraction COPD (chronic obstructive pulmonary disease) Tobacco abuse Alcohol abuse Hyperlipemia Hypertension GERD (gastroesophageal reflux disease) Home Medications ?Medication ?Instructions ?Recorded ?Last Taken ?Type atorvastatin 80 mg tablet 80 mg PO DAILY 03/22/22 03/22/22 History clopidogrel 75 mg tablet 75 mg PO DAILY 03/22/22 03/22/22 History lisinopril 2.5 mg tablet 2.5 mg PO DAILY 03/22/22 03/22/22 History esomeprazole magnesium 40 mg 40 mg PO DAILY 02/26/25 Unknown History capsule,delayed release folic acid 1 mg tablet 1 mg PO DAILY 02/26/25 Unknown History ipratropium 0.5 mg-albuterol 3 mg 3 ml continuous nebulization Q4H 02/26/25 Unknown History (2.5 mg base)/3 mL nebulization PRN PRN wheezing soln montelukast 10 mg tablet 10 mg PO DAILY 02/26/25 Unknown History thiamine HCl (vitamin B1) 100 mg 100 mg PO DAILY 02/26/25 Unknown History tablet umeclidinium 62.5 mcg-vilanterol 1 ea inhalation DAILY 02/26/25 Unknown History 25 mcg/actuation powdr for inhalation (Anoro Ellipta) furosemide 40 mg tablet (Lasix) 40 mg PO DAILY #7 tabs 03/05/25 Unknown Rx potassium chloride 10 mEq 20 meq (2 x 10 mEq) PO DAILY #14 03/05/25 Unknown Rx tablet,extended release (Klor-Con) tabs prednisone 20 mg tablet 20 mg PO BIDCM #10 tabs 03/05/25 Unknown Rx cyclobenzaprine 10 mg tablet 10 mg PO TID PRN 03/10/25 Unknown History Allergy/AdvReac Type Severity Reaction Status Date / Time Penicillins (PCN) Allergy Unknown - Verified 03/10/25 01:11 WAS A BABY Family History (Updated 03/10/25 @ 04:[address] Dayan Wilks MD) Father Leukemia Mother No problems noted. Surgical History (Updated 03/10/25 @ 04:[address] Dayan Wilks MD) H/O laminectomy Status post bilateral total hip replacement Social History (Updated 03/10/25 @ 04:[address] Dayan Wilks MD) household members: spouse Smoking Status: Current every day smoker tobacco type: cigarettes alcohol intake: former details: Recently sober since prior admission, 15-30 beers daily prior. substance use type: does not use Physical Exam Const alert, oriented x3 and no apparent distress General Appearance: cooperative HEENT normocephalic and head/scalp atraumatic Eyes PERRL and EOMs intact bilaterally Neck supple and No nodes Resp Auscultation: diminished lung sounds Cardio regular rate and regular rhythm GI soft to palpation, non-tender and non-distended Extremity General Extremity: edema Skin no rashes or lesions noted Neuro CN's II-XII intact bilaterally Medical Records Data Medical Nutrition Assessment Dietitian: Malnutrition Criteria Met Start: 03/10/25 15:25 Freq: Status: Active Protocol: Document 03/10/25 15:25 MARIEL (Rec: 03/10/25 15:25 MARIEL [id number]) Nutrition Malnutrition Evidence of Yes Malnutrition Exists Malnutrition (severe Acute Illness/Injury ): Evidenced By Suboptimal Energy Intake (Severe),Weight Loss (Severe) Clinical Problem Acute Disease or Injury Related Malnutrition Etiology related to physiological changes decreasing appetite and oral intakes Signs/Symptoms as evidenced by significant weight loss of 4.1% or 11lb in less than one week based upon 03/05/25 weight of 266lb and oral intakes meeting less than 50% of estimated nutrient needs x 1 week with pt report. Status Active Problem Recommendation Dietitian Continue with Cardiac - Heart Healthy diet with Recommendations/ modifications per DRESSMAKING TEACHER recommendation 2/2 2+ pitting BLE Changes . Pt not interested in ONS use at this time. RD encouraged to increase oral intakes and pt was in understanding and agreeable. Will continue to follow, monitor oral intakes and modify nutrition interventions as needed. Lab / Micro Data Attestation: I reviewed the patient's lab results. 03/12/25 09:09 03/10/25 04:54 Labs: Laboratory Results - last 24 hr 03/12/25 09:09: WBC 11.1 H, RBC 3.70 L, Hgb 10.6 L, Hct 32.6 L, MCV 88.1, MCH 28.6, MCHC 32.5, RDW Std Deviation 46.5 H, RDW Coeff of Carlos 14.3, Plt Count 427, MPV 9.5, Immature Gran % (Auto) 0.400, Neut % (Auto) 79.8 H, Lymph % (Auto) 11.1 L, Island % (Auto) 6.8, Eos % (Auto) 1.4, Baso % (Auto) 0.5, Absolute Neuts (auto) 8.8 H, Absolute Lymphs (auto) 1.23, Nucleated RBC % 0 Micro: Microbiology 03/10/25 01:37 Blood Culture (Wb) - Right Hand Blood Culture - Preliminary No growth in 48 hours. 03/10/25 02:44 Blood Culture (Wb) - Right Hand Blood Culture - Preliminary No growth in 48 hours. 03/10/25 02:44 Urine, Random Urine Culture - Final Gram negative rose Rhythm Strip Rhythm Strip: Sinus Rhythm Rate: 80 Ectopy: None
[2025-03-12] MEDS: 0.9% Saline Lock 10 ML Syringe IV (20:41)
[2025-03-13] VITALS (8 sets, daily range): BP systolic 159–167; BP diastolic 63–91; PULSE 74–89; RESP 21–32; TEMP 36.3–36.7; O2SAT 89–97; BMI 37.2
[2025-03-13 04:48] LABS: Vancomycin, Trough Level 26.8 ug/mL (5.0-15.0)
[2025-03-13] MEDS: Cefepime HCl 2 GM in 0.9% Normal Saline (100mL MB+) 100 ML IV (05:14)
--- NOTE | 2025-03-13 06:12 | PCM.RX.CS ---
Consult Antibiotic Management Pharmacy has been consulted to manage selected antibiotic: Vancomycin Type of Intervention Type of Consult: Follow-up Labs Labs: Sodium 134 mmol/L (133-145) 03/10/25 04:54 Potassium 3.6 mmol/L (3.3-5.1) 03/10/25 04:54 Chloride 97 mmol/L (98-108) L 03/10/25 04:54 Carbon Dioxide 23.7 mmol/L (21.0-32.0) 03/10/25 04:54 Anion Gap 14 (5-15) 03/10/25 04:54 BUN 12 mg/dL (4-19) 03/10/25 04:54 Creatinine 0.93 mg/dL (0.70-1.20) 03/10/25 04:54 Est GFR (MDRD) Non-Af 92 (>60) 03/10/25 04:54 BUN/Creatinine Ratio 12.4 RATIO (10-20) 03/10/25 04:54 Glucose 102 mg/dL (70-99) H 03/10/25 04:54 Vancomycin Trough 26.8 ug/mL (5.0-15.0) H 03/13/25 04:05 Microbiology Microbiology: Microbiology 03/10/25 01:37 Blood Culture (Wb) - Right Hand Blood Culture - Preliminary No growth in 48 hours. 03/10/25 02:44 Blood Culture (Wb) - Right Hand Blood Culture - Preliminary No growth in 48 hours. 03/10/25 02:44 Urine, Random Urine Culture - Final Gram negative rose 03/10/25 05:10 Mucosa - Nasopharyngeal Respiratory Panel (PCR) - Final 03/10/25 04:45 Nasal Secretion MRSA (PCR) - Final 03/10/25 02:44 Urine, Random Legionella Antigen - Final 03/10/25 02:44 Urine, Random Streptococcus pneumoniae Antigen (M - Final 03/10/25 01:35 Mucosa - Nose SARS-CoV-2, Influenza & RSV (PCR) - Final Goal Trough Goal Trough: 15-20 mcg/mL Pharmacy Plan for Drug Dosing Pharmacy Plan for Drug Dosing: Pharmacy Service will continue to monitor and adjust dosing as required. TROUGH 26.8 @ 7.5 HOURS. HOLD DOSE AND DRAW RANDOM LEVEL IN 12 HOURS Follow-Up Labs Follow-Up Labs: Trough: Vancomycin Date/Time Labs Ordered Labs to be done on [date and time ordered]: 03/13 @ 1600
[2025-03-13 07:10] LABS: Estimated Creatinine Clearance 114.82 ml/min (50-250)
--- NOTE | 2025-03-13 08:58 | CASEMGMT ---
Discharge Planning A list of SNF providers including quality and resource use data and consistent with the patient's preferred geographic region, medical needs, and insurance network was created in [facility] Guide.? This list was provided to the RN SOPHIA. Licha Maloney, Discharge Planning Asst.
--- NOTE | 2025-03-13 09:17 | CASEMGMT ---
Addendum entered by Marge Montalvo 03/13/25 16:20: Patient has order for discharge to [facility] for additional rehab and therapy. RN CM updated patient and would like to transport. RN CM called and updated regarding acceptance and discharge order place. is able to transport patient to [facility] and will be here at 5pm to pickup patient. RN CM updated [facility] regarding transport by family and expected arrival of 6pm. RN CM sent discharge paperwork to [facility] via [facility]. RN CM updated nursing regarding family pickup planned for 5pm. Addendum entered by Marge Montalvo 03/13/25 15:23: RN CM updated patient has been accepted by [facility]. RN CM updated hospitalist, awaiting orders. RN CM updated patient that he has been accepted and will update with transport time when available. DC Meter Setter to schedule transport when discharge paperwork available. Addendum entered by Marge Montalvo 03/13/25 11:14: NEENA CORTES updated by hospitalist that patient is agreeable to additional therapy at discharge. NEENA CORTES in to discuss preferences. Patient and state their first choice is [facility] as their DIL works their, second choice is TCU. RN CM informed patient and that referral can be sent to [facility] but not sure if he will qualify for [facility]. Patient and voiced understanding and had no further questions. NEENA CORTES udpatd DC Meter Setter to send referral to [facility]. CM will continue to follow this patient and plan for a safe discharge. Original Note: NEENA CORTES in to discuss discharge planning with patient, at bedside. RN CM discussed progress with therapy, 25ft min assist and recommendation for SNF at discharge. RN CM educated patient on C LOC and SNF LOC. Patient states he is willing to think about it but still wishes to discharge home. RN CM provided patient with SNF list and encouraged patient and to discuses and review list. CM to follow-up with patient and this afternoon to continue discharge planning discussions.
[2025-03-13] MEDS: Thiamine Hydrochloride 100 MG Tablet PO (09:21)
[2025-03-13] MEDS: Nicotine (PBKC) 21 MG Patch TD (09:21)
[2025-03-13] MEDS: Potassium Chloride Oral Tablet 20 MEQ PO (09:21)
[2025-03-13] MEDS: APIXABAN 5 MG TABLET 10 MG PO (09:22)
--- NOTE | 2025-03-13 11:09 | CASEMGMT ---
Discharge Planning Referral sent to Selene SON. Licha Maloney DC Planning Asst.
--- NOTE | 2025-03-13 15:32 | PCM.DC.SUM ---
Providers Date of Admission: 03/10/25 Date of Discharge: 03/13/25 Primary Care Physician: Fidencio Sanders PA-C Consultations 03/10/25 04:38 Consult: Infectious Disease Routine Consulting Provider: Jaime Gannon Reason for Consult: Sepsis, PNA EMERGENT Consult: No Notified: Yes Date Notified: 03/10/25 Time Notified: 14:31 Method of Notification: Answering Service Consult: Electronic Security Technician / Pulmonary Medicine Routine Consulting Provider: Pulmonary Medicine lenka Leslie Reason for Consult: Sepsis, RF, PNA, ? PE EMERGENT Consult: No Notified: Yes Date Notified: 03/10/25 Time Notified: 06:22 Method of Notification: Text Reason For Visit: SEPSIS, RESP FAILURE, BL PNA, ?PE Diagnosis Discharge Diagnosis (1) Pulmonary embolism: Status: Acute Code(s): I26.99 - Other pulmonary embolism without acute cor pulmonale (2) Bilateral pneumonia: Status: Acute Code(s): J18.9 - Pneumonia, unspecified organism (3) Acute hypoxic respiratory failure: Status: Inactive Code(s): J96.01 - Acute respiratory failure with hypoxia Medications at Discharge Home Medications atorvastatin 80 mg tablet 80 mg PO DAILY 03/22/22 clopidogrel 75 mg tablet 75 mg PO DAILY 03/22/22 lisinopril 2.5 mg tablet 2.5 mg PO DAILY 03/22/22 esomeprazole magnesium 40 mg capsule,delayed release 40 mg PO DAILY 02/26/25 folic acid 1 mg tablet 1 mg PO DAILY 02/26/25 ipratropium 0.5 mg-albuterol 3 mg (2.5 mg base)/3 mL nebulization soln 3 ml continuous nebulization Q4H PRN PRN wheezing 02/26/25 montelukast 10 mg tablet 10 mg PO DAILY 02/26/25 thiamine HCl (vitamin B1) 100 mg tablet 100 mg PO DAILY 02/26/25 umeclidinium 62.5 mcg-vilanterol 25 mcg/actuation powdr for inhalation (Anoro Ellipta) 1 ea inhalation DAILY 02/26/25 potassium chloride 10 mEq tablet,extended release (Klor-Con) 20 meq (2 x 10 mEq) PO DAILY #14 tabs 03/05/25 acetaminophen 325 mg tablet 650 mg (2 x 325 mg) PO Q4H PRN PRN Fever, pain 1-10 #0 tabs 03/13/25 albuterol sulfate 2.5 mg/3 mL (0.083 %) solution for nebulization 2.5 mg (3 mL) inhalation Q2H PRN PRN Dyspnea, wheezing #0 mL 03/13/25 apixaban 5 mg tablet 5 mg PO BID #1 TAB 03/13/25 apixaban 5 mg tablet (Eliquis) 10 mg (2 x 5 mg) PO BID #1 TAB 03/13/25 cefdinir 300 mg capsule 300 mg PO Q12 #1 cap 03/13/25 furosemide 40 mg tablet 40 mg PO BIDLX #0 tabs 03/13/25 nystatin 100,000 unit/gram topical powder 1 applic topical BID #0 grams 03/13/25 prednisone 20 mg tablet 40 mg (2 x 20 mg) PO BREAKFAST #1 TAB 03/13/25 sennosides 8.6 mg-docusate sodium 50 mg tablet (Stimulant Laxative Plus) 2 tab PO BID PRN PRN Constipation #0 tabs 03/13/25 Hospital Course Operations None Procedures 2-D Echocardiogram, EKG and - (CT brain/chest x-ray/CTA chest) Summary of Care Provided Minutes Spent on Discharge: 40 Hospital Course: Mr. Story is a 64-year-old white male who presented to the emergency department at [facility] on 03/10/2025. He had a recent hospitalization here from 02/27/2025 through 03/05/2025 at which time he was treated for sepsis secondary to aspiration pneumonia and had concomitant acute respiratory failure and metabolic encephalopathy along with alcohol withdrawal and DTs. He was discharged on pulse dose prednisone therapy, Lasix, potassium supplements and re-presented to the emergency department on 03/10/2025 with sudden onset of shortness of breath that was awakening him from sleep. He felt that he may have potentially had chills in the evening prior to presentation and he had mild swelling of his legs worse than previous. He also complained of left-sided chest discomfort from falling 2 days previously vital signs on presentation showed temperature of 100.5, heart rate 92, respiratory was 37, blood pressure was 156/77 and pulse ox was 92% on 2 L nasal cannula. He was placed on BiPAP initially for work of breathing however he ripped off the mask and declined further usage. CBC showed a leukocytosis with a white count of 16, hemoglobin was stable at 12 and platelet count was 466,000. Left shift was present. Coags were overtly unremarkable. D-dimer was elevated at 3.62. An ABG was obtained and showed a pH of 7.53 with a bicarb of 27.5 and an O2 sat of 95% with a pCO2 of 32.6 on BiPAP. Lactic acid was 1.9. CMP showed anion gap of 16. Liver enzymes were just slightly elevated. proBNP was 512. As alcohol level is less than 10 the patient denied drinking since discharge. CT of the brain showed no acute abnormality with chronic cerebral microvascular changes. CTA of the chest was performed due to his elevated D-dimer which showed newly developed left pulmonary atrial thromboembolism cardiomegaly, and decrease of the right lower lobe consolidative changes and newly developed left upper lobe consolidation changes that was likely infarct versus pneumonia and a stable mild right and newly developed small left pleural effusion. I highly suspect that his left lower lung changes were infarcted versus pneumonia. He was placed on supplemental oxygen and started on apixaban 10 mg p.o. twice daily. He was on 2 L nasal cannula supplement at discharge. Should be able to be weaned with ongoing therapy. We did increase his Lasix from 40 mg daily to 40 mg p.o. twice daily. During his hospital stay his renal function remained stable with increased dose. His lower extremity swelling did improve with time. Some of that may be related DVT as well as HFpEF. He was placed on empiric antibiotics and ID was consulted. He was maintained on IV antibiotics until 03/13/2025 and then we transitioned him to Omnicef as recommended by infectious disease. The plan at discharge will be to complete 3 days of Omnicef. White count did improve and had almost normalized by the time of discharge. With regards to his pulmonary embolus he was maintained on apixaban 10 mg p.o. twice daily and will continue this for total of 7 days then transition to 5 mg p.o. twice daily. I would keep him on indefinite therapy at this time. Echocardiogram was done during his hospital course and showed an EF of 60% but a poor window making it difficult to assess diastolic function. There is no commented RV strain noted. Patient was very debilitated and had made changes in his home after his last hospitalization but was still having trouble. He initially insisted on going back home but we were able to discuss his option further and he elected to try to go to [facility] rehab. He was accepted for care there and he was able to be discharged there in stable condition on 03/13/2025. As noted above he will continue antibiotics to complete 3 more days and will maintain Eliquis 10 mg p.o. twice daily to complete a 7-day course and transition to 5 mg p.o. twice daily. He will also have an increased dose of Lasix from 40 mg daily to 40 mg twice daily. He will need lab reassess in 3 to 5 days. Discharge diagnoses: Sepsis Acute hypoxic respiratory failure Acute pulmonary emboli without cor pulmonale Bilateral pneumonia Leukocytosis Chronic anemia Hyperlipidemia Essential hypertension GERD HFpEF History of alcohol abuse and recent DTs COPD History of allergic rhinitis CKD stage II History of stroke Hyperlipidemia Obesity Tobacco abuse Physical Exam Const alert, oriented x3, no apparent distress, no limitations and well nourished; Negative for average body habitus or healthy appearing Constitutional Narrative: Obese, upper middle-aged, white male, sitting up in chair at the bedside, at bedside, appears comfortable, nontoxic General Appearance: cooperative, comfortable, well kempt and well developed Exam Limitations: no limitations Nutritional Appearance: obese HEENT normocephalic, head/scalp atraumatic and moist oral mucous membranes HEENT Narrative: Mallampati 3-4, no thrush Eyes conjunctivae normal Eyes Narrative: No scleral icterus Neck supple Neck Narrative: Trachea midline Resp normal respiratory effort, no retractions, no use of accessory muscles and clear to auscultation bilaterally Resp Narrative: Diminished and distant due to body habitus but no adventitious sounds noted Auscultation: Negative for rales, rhonchi or wheezes Cardio regular rate, regular rhythm, S1 normal heart sound, S2 normal heart sound, no murmurs, no rub, no gallops and no clicks Cardio Narrative: Distant heart tones due to body habitus GI normal to inspection, nondistended, normoactive bowel sounds, soft to palpation and non-tender GI Narrative: Large protuberant abdomen Extremity Extremity Narrative: Bilateral lower extremity edema however improved with Rocky bandages in place currently, no clubbing or cyanosis Skin no jaundice, no petechiae and no mottling Skin Narrative: Chronic lower extremity venous stasis changes Neuro oriented x3, moves all extremities and no focal motor deficits Neuro Narrative: Patient appears to be generally weak Speech: speech normal Psych affect normal Psych Narrative: Eye contact good and patient interacted appropriately Medical Records Data Medical Nutrition Assessment Dietitian: Malnutrition Criteria Met Start: 03/10/25 15:25 Freq: Status: Active Protocol: Document 03/10/25 15:25 MARIEL (Rec: 03/10/25 15:25 MARIEL [id number]) Nutrition Malnutrition Evidence of Yes Malnutrition Exists Malnutrition (severe Acute Illness/Injury ): Evidenced By Suboptimal Energy Intake (Severe),Weight Loss (Severe) Clinical Problem Acute Disease or Injury Related Malnutrition Etiology related to physiological changes decreasing appetite and oral intakes Signs/Symptoms as evidenced by significant weight loss of 4.1% or 11lb in less than one week based upon 03/05/25 weight of 266lb and oral intakes meeting less than 50% of estimated nutrient needs x 1 week with pt report. Status Active Problem Recommendation Dietitian Continue with Cardiac - Heart Healthy diet with Recommendations/ modifications per CORE SHAPER SIDES recommendation 2/2 2+ pitting BLE Changes . Pt not interested in ONS use at this time. RD encouraged to increase oral intakes and pt was in understanding and agreeable. Will continue to follow, monitor oral intakes and modify nutrition interventions as needed. Weight / BMI Weight Weight: 114.4 kg Body Mass Index (BMI) 37.2 ABG / Lab / Microbiology Data 03/12/25 09:09 03/13/25 04:05 Laboratory: Laboratory Results - last 24 hr 03/13/25 04:05: Creatinine 0.78, Estim Creat Clear Calc 114.82, Est GFR (MDRD) Non-Af 99, Vancomycin Trough 26.8 H Microbiology: Microbiology 03/10/25 01:37 Blood Culture (Wb) - Right Hand Blood Culture - Preliminary No growth in 48 hours. 03/10/25 02:44 Blood Culture (Wb) - Right Hand Blood Culture - Preliminary No growth in 48 hours. 03/10/25 02:44 Urine, Random Urine Culture - Final Gram negative rose 03/10/25 05:10 Mucosa - Nasopharyngeal Respiratory Panel (PCR) - Final 03/10/25 04:45 Nasal Secretion MRSA (PCR) - Final 03/10/25 02:44 Urine, Random Legionella Antigen - Final 03/10/25 02:44 Urine, Random Streptococcus pneumoniae Antigen (M - Final 03/10/25 01:35 Mucosa - Nose SARS-CoV-2, Influenza & RSV (PCR) - Final D/C Instructions DC O2, CPAP, BIPAP Needs Home O2 Discharge instructions: No DC home with Oxygen: No Meaningful Use Info Meaningful Use Meaningful Use Diagnoses (Choose all that apply): None applicable Discharge Plan Admission Admit Date/Time: 03/10/25 04:04 Primary Reason for Your Visit: Altered mental status Attending Provider: Michelle Marcelo Primary Care Provider: Fidencio Sanders Consulting Providers: Dayan Wilks; Jaime Gannon; Antonio Parker Discharge Orders/Prescriptions Prescriptions: New Eliquis 5 mg Tablet 10 mg PO BID Qty: 1 0RF Rx Instructions: complete 1 week with start date of 03/10/25 then to 5 mg PO BID cefdinir 300 mg Capsule 300 mg PO Q12 Qty: 1 0RF furosemide 40 mg Tablet 40 mg PO BIDLX Qty: 0 0RF prednisone 20 mg Tablet 40 mg PO BREAKFAST Qty: 1 0RF nystatin 100,000 unit/gram Powder 1 applic topical BID Qty: 0 0RF Protocol: *Topical Application Instructions APPLICATION INSTRUCTIONS: apply to groin/folds acetaminophen 325 mg Tablet 650 mg PO Q4H PRN PRN (Reason: Fever, pain 1-04/27) Qty: 0 0RF albuterol sulfate 2.5 mg /3 mL (0.083 %) Solution For Nebulization 2.5 mg inhalation Q2H PRN PRN (Reason: Dyspnea, wheezing) Qty: 0 0RF sennosides-docusate sodium [Stimulant Laxative Plus] 8.6-50 mg Tablet 2 tab PO BID PRN PRN (Reason: Constipation) Qty: 0 0RF apixaban 5 mg tablet 5 mg PO BID Qty: 1 0RF Rx Instructions: start on 03/17/2025 Continued atorvastatin 80 mg tablet 80 mg PO DAILY clopidogrel 75 mg tablet 75 mg PO DAILY lisinopril 2.5 mg tablet 2.5 mg PO DAILY ipratropium-albuterol 0.5 mg-3 mg(2.5 mg base)/3 mL solution for nebulization 3 ml continuous nebulization Q4H PRN PRN (Reason: wheezing) esomeprazole magnesium 40 mg capsule,delayed release(DR/EC) 40 mg PO DAILY folic acid 1 mg tablet 1 mg PO DAILY thiamine HCl (vitamin B1) 100 mg tablet 100 mg PO DAILY umeclidinium-vilanterol [Anoro Ellipta] 62.5-25 mcg/actuation blister with device 1 ea INHALATION DAILY montelukast 10 mg tablet 10 mg PO DAILY potassium chloride [Klor-Con 10] 10 mEq tablet extended release 20 meq PO DAILY Qty: 14 0RF Rx Instructions: Take 2 tabs once a day while taking furosemide for water retention Discontinued furosemide [Lasix] 40 mg tablet 40 mg PO DAILY Qty: 7 0RF Rx Instructions: 1 daily for 5 to 7 days for water retention cyclobenzaprine 10 mg tablet 10 mg PO TID PRN Referrals / Follow Up: Fidencio Sanders PAKevinC [Primary Care Provider] - Within 1 Week (After discharge from acute rehab) Disposition Disposition (needs filled in before D/C Order can be placed): Inpatient Rehab Unit/Facility Charges/Coding Visit Charges Inpatient E&M: 47615 Disch Hosp >30min
--- NOTE | 2025-03-13 15:59 | PHA.DC.MR.R ---
[facility] [place] Med Recon[facility] Pharmacy Service has performed discharge medication reconciliation for this patient. The patient's discharge medication list was reviewed for discrepancies and discrepancies were resolved. Medications at Discharge Home Medications atorvastatin 80 mg tablet 80 mg PO DAILY 03/22/22 clopidogrel 75 mg tablet 75 mg PO DAILY 03/22/22 lisinopril 2.5 mg tablet 2.5 mg PO DAILY 03/22/22 esomeprazole magnesium 40 mg capsule,delayed release 40 mg PO DAILY 02/26/25 folic acid 1 mg tablet 1 mg PO DAILY 02/26/25 ipratropium 0.5 mg-albuterol 3 mg (2.5 mg base)/3 mL nebulization soln 3 ml continuous nebulization Q4H PRN PRN wheezing 02/26/25 montelukast 10 mg tablet 10 mg PO DAILY 02/26/25 thiamine HCl (vitamin B1) 100 mg tablet 100 mg PO DAILY 02/26/25 umeclidinium 62.5 mcg-vilanterol 25 mcg/actuation powdr for inhalation (Anoro Ellipta) 1 ea inhalation DAILY 02/26/25 potassium chloride 10 mEq tablet,extended release (Klor-Con) 20 meq (2 x 10 mEq) PO DAILY #14 tabs 03/05/25 acetaminophen 325 mg tablet 650 mg (2 x 325 mg) PO Q4H PRN PRN Fever, pain -04/27 #0 tabs 03/13/25 albuterol sulfate 2.5 mg/3 mL (0.083 %) solution for nebulization 2.5 mg (3 mL) inhalation Q2H PRN PRN Dyspnea, wheezing #0 mL 03/13/25 apixaban 5 mg tablet 5 mg PO BID #1 TAB 03/13/25 apixaban 5 mg tablet (Eliquis) 10 mg (2 x 5 mg) PO BID #1 TAB 03/13/25 cefdinir 300 mg capsule 300 mg PO Q12 #1 cap 03/13/25 furosemide 40 mg tablet 40 mg PO BIDLX #0 tabs 03/13/25 nystatin 100,000 unit/gram topical powder 1 applic topical BID #0 grams 03/13/25 prednisone 20 mg tablet 40 mg (2 x 20 mg) PO BREAKFAST #1 TAB 03/13/25 sennosides 8.6 mg-docusate sodium 50 mg tablet (Stimulant Laxative Plus) 2 tab PO BID PRN PRN Constipation #0 tabs 03/13/25
== END 2025-03-13 17:02 | DRG 871 ==
LOC: ED 03:57 → ICU 04:15 → PCU 03-11 04:31
PROVIDERS: Internal Medicine; Internal Medicine Infectious Disease; Admitting Provider Family Medicine; Emergency Provider Emergency Medicine; PCP Physician Assistant; Visit Provider Internal Medicine
DX: A41.9 Sepsis, unspecified organism (principal); J96.01 Acute respiratory failure with hypoxia; I26.99 Other pulmonary embolism without acute cor pulmonale; I26.94 Multiple subsegmental thrombotic pulmonary emboli without acute cor pulmonale; J69.0 Pneumonitis due to inhalation of food and vomit; J18.9 Pneumonia, unspecified organism; I13.0 Hypertensive heart and chronic kidney disease with heart failure and stage 1 through stage 4 chronic kidney disease, or unspecified chronic kidney disease; J44.0 Chronic obstructive pulmonary disease with (acute) lower respiratory infection; I50.32 Chronic diastolic (congestive) heart failure; D64.9 Anemia, unspecified; S30.1XXA Contusion of abdominal wall, initial encounter; F10.20 Alcohol dependence, uncomplicated; F32.A Depression, unspecified; E66.9 Obesity, unspecified; S09.90XA Unspecified injury of head, initial encounter; E78.5 Hyperlipidemia, unspecified; K21.9 Gastro-esophageal reflux disease without esophagitis; W01.0XXA Fall on same level from slipping, tripping and stumbling without subsequent striking against object, initial encounter; N18.2 Chronic kidney disease, stage 2 (mild); F17.210 Nicotine dependence, cigarettes, uncomplicated; I45.10 Unspecified right bundle-branch block; J30.9 Allergic rhinitis, unspecified; R65.20 Severe sepsis without septic shock; Z86.73 Personal history of transient ischemic attack (TIA), and cerebral infarction without residual deficits; Z79.02 Long term (current) use of antithrombotics/antiplatelets; Z79.51 Long term (current) use of inhaled steroids; Z79.899 Other long term (current) drug therapy; Z68.37 Body mass index [BMI] 37.0-37.9, adult
CPT/HCPCS: 36415; 36600; 70450; 71045; 71275; 80053; 80202; 81001; 82077; 82565; 82803; 83605; 83735; 83880; 84100; 85025; 85379; 85610; 85730; 87040; 87086; 87088; 87449; 87631; 87633; 87641; 92526; 92610; 93005; 93308; 94002; 94640; 94668; 94762; 97162; 97166; 97530; 97535; 97802; 99285; Q9967; A4216